=== PATIENT | male | born 1965 | race Caucasian/White ===

== ENCOUNTER → 2016-09-01 | Outpatient (CLI) | payer BC, OTHER ==
[~2016-09-01] MED LIST: AMOX500C3 PO; AMOX875T PO; ASPCH81 PO; ASPI1TAB83 PO; ATOR80TA PO; BMX1 PO; CHOL100010 PO; CIPR-255 PO; CIPR1TAB10 PO; CLOB-65 EXT; CLR10 PO; CRD200 PO; CZR25 PO; DSY50 PO; ERGO500011 PO; FLUT0.15 NAE; FURO20TA PO; GABA1CAP4 PO; GLC500 PO; HYOS1TAB PO; INSUINJ2 SC; KFL500 PO; LACTCHW3 PO; LEVO100T7 PO; LOSA1TAB PO; MAGN1TAB19 PO; MCRK20 PO; METO25TA3 PO; METO50TA7 PO; MOME200A INH; MONT1TAB5 PO; NITR0.4S UT; POTA20TA16 PO; PRLSR20 PO; SPIR25TA89 PO; SULF800T23 PO; TRAM-10 PO; TRAZ-120 PO; WLL100 PO; ZRX5 PO; [UNRECOGNIZED DRUG - CODE] PO
--- NOTE | 2016-09-01 10:43 | DIAGNOSTIC IMAGING REPORT ---
RIGHT LOWER EXTREMITY VENOUS DOPPLER HISTORY: Right leg swelling. COMPARISON STUDY: None. FINDINGS: There is normal compressibility, flow, and augmentation within the right lower extremity deep venous system. IMPRESSION: No DVT within the right lower extremity Electronically signed by: Huey Thorne M.D. 09/01/2016 10:41 AM Dictated Date/Time: 09/01/2016 10:41 AM
== END | disposition home or self-care (01) ==
LOC: C.ULTR 09:56
PROVIDERS: ATTEND Physician Assistant
DX: M79.604 Pain in right leg (principal)

== ENCOUNTER 2016-09-17 06:27 | Day surgery (SDC) | payer BC, OTHER ==
[~2016-09-17] VITALS: Ht 182.9 cm; Wt 177.0 kg
[~2016-09-17 06:27] MED LIST changes: -AMOX875T PO; -ASPI1TAB83 PO; -ATOR80TA PO; -BMX1 PO; -CHOL100010 PO; -CIPR-255 PO; -CIPR1TAB10 PO; -CRD200 PO; -CZR25 PO; -DSY50 PO; -GABA1CAP4 PO; -KFL500 PO; -LACTCHW3 PO; -MAGN1TAB19 PO; -MCRK20 PO; -METO50TA7 PO; +SODIUM CHLORIDE 0.9% 1000ML 1,000 ML IV SCH; -SULF800T23 PO; -TRAZ-120 PO; -WLL100 PO; -ZRX5 PO
[2016-09-17] MEDS ORDERED: CHOL100010 PO (07:29)
[2016-09-17 07:37] VITALS: BP 144/83; PULSE 79; TEMP 36.9; O2SAT 98; Ht 182.9 cm; Wt 177.0 kg
[2016-09-17] MEDS ORDERED: SODIUM BICARB 8.4% INJ 50 MEQ/50 ML SYR IV ONE (07:41)
[2016-09-17] MEDS ORDERED: LIDOCAINE HCL 1% 20 ML VIAL ONE (07:41)
[2016-09-17] MEDS ORDERED: LIDOCAINE/EPINEPHRINE 1% INJ 50 ML VIAL ONE ×2 (07:41→08:03)
[2016-09-17] MEDS ORDERED: FENTANYL CITRATE INJ 50 MCG/1 ML 2 ML VIAL ONE (07:43)
[2016-09-17] MEDS ORDERED: MIDAZOLAM HCL 1 MG/ML 2ML VIAL ONE (07:43)
--- NOTE | 2016-09-17 07:49 | History and Physical ---
History & Physical Date September 17, 2016. Chief Complaint Venous insufficiency History of Present Illness Mr. Lyle is a 50-year-old man with a history of morbid obesity, nonischemic cardiomyopathy, status post ICD, coronary artery disease, type 2 diabetes, on insulin, obstructive sleep apnea, hypertension, asthma, who has been followed by the wound clinic for more than a month in the setting of slow healing lower extremity ulcerations, thought secondary due to venous stasis. The patient states that he has had issues with lower extremity swelling for years. Prior treatments included compression stockings as well as lymphedema management with lymphedema pumps. Despite this, he continues to have significant lower extremity swelling with intermittent skin breakdown. Most recently, he underwent a lower extremity ultrasound which showed a dilated right GSV in the thigh with reflux and normal SSV. There was no evidence of DVT or SVT. The patient as a result consulted today for consideration of GSV ablation. PAST MEDICAL HISTORY: 1. Type 2 diabetes, on insulin. 2. Dyslipidemia. 3. Nonischemic cardiomyopathy, status post ICD. 4. Prior coronary artery disease. 5. Sleep apnea. 6. Hypothyroidism. 7. Hypertension. Past Medical/Surgical History Medical Problems: (1) Acute renal failure syndrome (2) Chest pain (3) Dehydration (4) Diabetes mellitus type 2 (5) Essential hypertension (6) Systolic heart failure (7) Testicular hypofunction Additional History Hepatic Disease: No Endocrine Disorder: Yes Kidney Disease: No Hypertension: Yes Heart Disease: Yes Bleeding Tendencies: No Infectious Diseases: No Allergies Coded Allergies: Benzonatate (Verified Adverse Reaction, Unknown, choking, gagging, 09/17/16 ) Home Medications Scheduled Aspirin (Aspirin Tab-Chewable *), 81 MG PO QAM Cholecalciferol (Vitamin D), 3,000 TAB PO DAILY Clobetasol Propionate 0.05% (Temovate 0.05%), 1 APPLN EXT BID Fluticasone Propionate (Nasal) (Flonase Allergy Relief), 2 SPRAYS DAIN DAILY Furosemide (Lasix), 80 MG PO BID Insulin Regular (Human) (Humulin R U-500 (Concentr), SC UD Levothyroxine Sodium (Levothyroxine Sodium), 1 TAB PO QAM Losartan Potassium (Cozaar), 25 MG PO DAILY Metformin HCL (Glucophage *), 1,000 MG PO BID Metoprolol Succ (Toprol Xl) (Toprol-Xl), 25 MG PO QPM Mometasone Furoate-Formoterol (Dulera 200/5 Mcg), 2 PUFFS INH BID Nitroglycerin (Nitrostat), 0.4 MG UT PRN Nutritional Supplements (Glucerna Meal Replacement), 1 UNIT PO prn Potassium Ext Rel (Klor-Con), 20 MEQ PO QAM Spironolactone (Aldactone), 25 MG PO QAM Scheduled PRN Hyoscyamine Sulfate (Levsin), 0.125 MG PO TID PRN for PRN Loratadine (Claritin), 10 MG PO DAILY PRN for PRN Omeprazole (Prilosec), 20 MG PO DAILY PRN for PRN Tramadol (Ultram), 50 MG PO Q8H PRN for Pain Physical Examination Skin: no rash Eyes: normal inspection ENT: normal ENT inspection Respiratory/Chest: lungs clear Cardiovascular: regular rate, rhythm Abdomen / GI: normal bowel sounds Extremities: + pertinent finding (signs of chronic venous stasis. distal extremities warm, intact cap refill) Neurologic/Psych: alert, oriented x 3 Diagnosis Venous insufficiency ASA Classification: ASA Class II Plan of Treatment Proceed with planned R GSV RF ablation.
--- NOTE | 2016-09-17 07:50 | Procedure Note ---
Pre-Mod Sedation Assessment General Date of Moderate Sedation: September 17, 2016. Review Cardiovascular: regular rate, rhythm Abdomen: non tender, soft Lungs: chest non-tender, lungs clear Airway Class: III Pre-Sedation Airway Assessment Oral Cavity: Dental Abnormalities Able to Visualize Vocal Cords: No Short Thick Neck: Yes Hx of Sleep Apnea: Yes Smoking Status: Never Smoker Mallampati Classification: Class III ASA Classification: Class II Procedure Planning Contraindications-for Mod Sed: None Yes Notes The planned sedation has been discussed with the patient and consent obtained. I have identified the patient, determined the appropriateness of sedation and have assessed the patient immediately prior to the procedure. All medicine(s) and interventions are by my order.
[2016-09-17] MEDS ORDERED: NURSING VERBAL MED ORDER ONE (08:00)
[2016-09-17] MEDS ORDERED: MIDAZOLAM HCL 1 MG/ML 2ML VIAL IV ONE (08:31)
[2016-09-17] MEDS ORDERED: FENTANYL CITRATE INJ 50 MCG/1 ML 2 ML VIAL IV ONE ×2 (08:32→08:50)
[2016-09-17] MEDS ORDERED: LIDOCAINE HCL 1% 20 ML VIAL INFIL ONE (09:00)
[2016-09-17] MEDS ORDERED: ORM MISCELLANEOUS MED XX ONE (09:00)
--- NOTE | 2016-09-17 09:03 | Procedure Note ---
Post-Mod Sedation Assessment General Date of Moderate Sedation September 17, 2016. Vital Signs: Vital Signs Past 12 Hours Date Time Temp Pulse Resp B/P Pulse Ox O2 Delivery O2 Flow Rate FiO2 09/17/16 07:48 Room Air 09/17/16 07:37 36.9 79 20 144/83 98 Room Air Review - Discharge Criteria Vital Signs Stable: Yes Alert/Oriented/Conversant: Yes Returned to Baseline Mental St: Yes Nausea Absent/Minimal: Yes Pain/Discomfort/Absent/Minimal: Yes Normal/Baseline Respirations: Yes Active Bleeding?: No Pt Received D/C Instructions: Yes Prescriptions Given: None Specific Proced. D/C Criteria Distal Pulses Present (Cardiac: N/A Groin site assessed-Card Cath: N/A Voided Prior To Discharge: Yes Discharged Patients Adult Escort/Transportation: Yes
--- NOTE | 2016-09-17 09:04 | [facility] Operative Report ---
Operative Report Operative Date September 17, 2016. Pre-Operative Diagnosis Venous insufficiency Post-Operative Diagnosis Venous insufficiency Procedure(s) Performed Right GSV RF ablation Surgeon Dr. Adams Estimated Blood Loss <10 Findings Dilated Right GSV. No evidence of superficial venous thrombosis/DVT Drains None Anesthesia Moderate Complication(s) None Disposition Recovery Room / PACU Description of Procedure US guided access Right GSV below the knee Catheter inserted, 2.9 cm from SFJ. Tumescent injected. US confirmed not in deep system. 2:40, 8 cycles of RFA right GSV. No complications. Patient tolerated well. US confirmed no DVT post procedure. I attest to the content of the Intraoperative Record and any orders documented therein. Any exceptions are noted below.
[2016-09-17 09:15] VITALS: BP 119/66; PULSE 75; TEMP 36.9; O2SAT 93
[2016-09-17 09:45] VITALS: BP 128/76; PULSE 73; TEMP 36.8; O2SAT 97
[2016-09-17 10:15] VITALS: BP 132/74; PULSE 73; TEMP 36.8; O2SAT 94
[2016-09-23] MEDS ORDERED: CIPR-255 PO (07:40)
[2016-10-13] MEDS ORDERED: AMOX500C3 PO (08:48)
[2016-11-03] MEDS ORDERED: CIPR1TAB10 PO (11:09)
[2016-11-20] MEDS ORDERED: SULF800T23 PO (09:53)
[2017-01-23] MEDS ORDERED: AMOX500C3 PO (11:06)
[2017-01-26] MEDS ORDERED: ERGO500011 PO (12:54)
[2017-02-02] MEDS ORDERED: AMOX875T PO (14:58)
[2017-02-02] MEDS ORDERED: MCRK20 PO (15:06)
[2017-02-02] MEDS ORDERED: WLL100 PO (15:06)
[2017-02-28] MEDS ORDERED: ZRX5 PO (12:46)
[2017-02-28] MEDS ORDERED: LACTCHW3 PO (12:46)
[2017-02-28] MEDS ORDERED: DSY50 PO (12:46)
[2017-02-28] MEDS ORDERED: KFL500 PO (12:46)
[2017-02-28] MEDS ORDERED: METO50TA7 PO (12:46)
[2017-02-28] MEDS ORDERED: ATOR80TA PO (12:48)
[2017-04-02] MEDS ORDERED: KFL500 PO (13:24)
== END 2016-09-17 10:30 | disposition home or self-care (01) ==
LOC: C.ACU 06:27
PROVIDERS: ATTEND Internal Medicine Interventional Cardiology
DX: I87.2 Venous insufficiency (chronic) (peripheral) (principal); I25.10 Atherosclerotic heart disease of native coronary artery without angina pectoris; E11.9 Type 2 diabetes mellitus without complications; E66.01 Morbid (severe) obesity due to excess calories; I10 Essential (primary) hypertension; E03.9 Hypothyroidism, unspecified; J45.909 Unspecified asthma, uncomplicated; G47.33 Obstructive sleep apnea (adult) (pediatric); Z79.4 Long term (current) use of insulin; Z79.899 Other long term (current) drug therapy

== ENCOUNTER → 2017-01-20 | Outpatient (CLI) | payer BC, OTHER ==
[~2017-01-20] MED LIST changes: +AMOX875T PO; +BMX1 PO; +CHOL100010 PO; +CIPR1TAB10 PO; +CRD200 PO; +CZR25 PO; +ERGO1CAP41 PO; -ERGO500011 PO; +MCRK20 PO; -MONT1TAB5 PO; -SODIUM CHLORIDE 0.9% 1000ML 1,000 ML IV SCH; +SULF800T23 PO; +WLL100 PO; +ZRX5 PO
--- NOTE | 2017-01-20 11:15 | DIAGNOSTIC IMAGING REPORT ---
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 This is similar in appearance compared to the prior study. Moderate generalized degenerative change throughout. Considerable soft tissue edematous change lateral to the fifth metatarsal. Small heel spur. Mild ossification Achilles tendon insertion. IMPRESSION: Considerable soft tissue edematous change about the fifth metatarsal. 2. 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 3. No evidence for acute bony pathology. No lytic or blastic process. The above report was generated using voice recognition software. It may contain grammatical, syntax or spelling errors. Electronically signed by: Declan Courtney M.D. 01/20/2017 11:14 AM Dictated Date/Time: 01/20/2017 11:12 AM
--- NOTE | 2017-01-20 11:22 | DIAGNOSTIC IMAGING REPORT ---
R TOE(S) MIN 2 VIEWS HISTORY: 51 years-old Male RIGHT 1ST TOE pain of the right great toe without reported trauma. COMPARISON: None available. TECHNIQUE: 3 views of the right great toe FINDINGS: There is a 6 mm linear bone fragment noted along the volar aspect of the first distal phalanx with lucent lateral margin suggesting acute fracture. Metallic density foci project over the adjacent soft tissues which are favored to be artifactual. Mild soft tissue swelling involves the distal first digit and medial forefoot. Moderate degenerative changes are seen within the metatarsophalangeal and interphalangeal joints of the first digit. IMPRESSION: 1. 6 mm linear bone fragment along the volar aspect of the first distal phalanx suggest acute fracture fragment with adjacent soft tissue swelling. 2. Mild degenerative changes of the first digit. The above report was generated using voice recognition software. It may contain grammatical, syntax or spelling errors. Electronically signed by: Flynn Johnson M.D. 01/20/2017 11:21 AM Dictated Date/Time: 01/20/2017 11:17 AM
== END | disposition home or self-care (01) ==
LOC: C.RAD 10:49
PROVIDERS: ATTEND Emergency Medicine
DX: S91.302A Unspecified open wound, left foot, initial encounter (principal); S91.101A Unspecified open wound of right great toe without damage to nail, initial encounter; X58.XXXA Exposure to other specified factors, initial encounter; R93.7 Abnormal findings on diagnostic imaging of other parts of musculoskeletal system; M79.9 Soft tissue disorder, unspecified

== ENCOUNTER 2017-01-26 11:25 | Inpatient (IN) | payer BC, OTHER ==
[~2017-01-26] VITALS: Ht 182.9 cm; Wt 171.5 kg
[~2017-01-26 11:25] MED LIST changes: -AMOX875T PO; -BMX1 PO; -CIPR1TAB10 PO; -CRD200 PO; -CZR25 PO; -ERGO1CAP41 PO; -FURO20TA PO; -LOSA1TAB PO; -MCRK20 PO; -SULF800T23 PO; -WLL100 PO; -ZRX5 PO
[2017-01-26] MEDS ORDERED: ACETAMINOPHEN 325 MG TAB PO PRN (12:00)
[2017-01-26] MEDS ORDERED: POLYETHYLENE (MIRALAX) 17 GM PACK PO PRN (12:00)
[2017-01-26] MEDS ORDERED: MAGNESIUM HYDROXIDE SUSP 30 ML UDC PO PRN (12:00)
[2017-01-26] MEDS ORDERED: [UNRECOGNIZED DRUG - OTHER] PO SCH (12:00)
[2017-01-26] MEDS: PATIENT'S HEIGHT AND/OR WEIGHT NEEDED SCH ×7 (12:00→13:23)
[2017-01-26] MEDS ORDERED: NUTRITIONAL SUPPLEMENTS PO SCH (12:00)
[2017-01-26] MEDS ORDERED: ONDANSETRON INJ 2 MG/ML 2 ML VIAL IV PRN (12:00)
[2017-01-26] MEDS ORDERED: VANCOMYCIN CONSULT ACTIVE SCH (12:06)
[2017-01-26] MEDS: NovoLOG INSULIN PUMP SCH ×3 (12:30→21:00)
[2017-01-26 12:37] VITALS: BP 142/81; PULSE 72; TEMP 36.6; O2SAT 96; BMI 51.8
[2017-01-26] MEDS ORDERED: GLUCOSE 40% GEL 15 GM TUBE PO PRN (12:45)
[2017-01-26] MEDS ORDERED: INSULIN ASPART 100 UNITS/ML VIAL SC PRN (12:45)
[2017-01-26] MEDS ORDERED: GLUCOSE 10 TABS/TUBE PO PRN (12:45)
[2017-01-26] MEDS ORDERED: GLUCAGON FOR INJ 1 MG VIAL SQ PRN (12:45)
[2017-01-26 12:48] LABS: BASO % 0.5 %; BASO ABS # 0.05 K/uL (0-0.2); COMPLETE YES; EOS % 2.7 %; HEMATOCRIT 38.9 % (42-52); IG% 0.5 %; LYMPH % 11.4 %; LYMPH ABS # 1.25 K/uL (1.2-3.4); MEAN CELL VOLUME 87.4 fL (80-100); MEAN CORPUSCULAR HEMOGLOBIN 28.3 pg (25-34); MEAN CORPUSCULAR HGB CONC 32.4 g/dl (32-36); MEAN PLATELET VOLUME 9.6 fL (7.4-10.4); MONO % 10.7 %; NEUT % 74.2 %; PLATELET COUNT 322 K/uL (130-400); RED BLOOD COUNT 4.45 M/uL (4.7-6.1); WHITE BLOOD COUNT 10.93 K/uL (4.8-10.8)
[2017-01-26] MEDS ORDERED: CRD200 PO (12:54)
[2017-01-26] MEDS ORDERED: ERGO1CAP41 PO (12:54)
[2017-01-26] MEDS ORDERED: ZRX5 PO (12:57)
[2017-01-26] MEDS ORDERED: CZR25 PO (12:57)
[2017-01-26] MEDS ORDERED: BMX1 PO (12:57)
[2017-01-26] MEDS ORDERED: CEFEPIME IV 2000 MG in DEXTROSE 5% 100ML IV ONE (13:00)
[2017-01-26 13:13] LABS: BUN/CREATININE RATIO 18.3 (10-20); CALCIUM 9.5 mg/dl (8.5-10.1); CREATININE 1.5 mg/dl (0.60-1.40); POTASSIUM 3.5 mmol/L (3.5-5.1)
--- NOTE | 2017-01-26 13:45 | Pharmacy Progress Note ---
Pharmacy Antibiotic Consult Date of Service: Jan 26, 2017. Pharmacy Dosing Scope Pharmacy is consulted to initiate vancomycin IV dosing therapy, order appropriate labs and adjust drug dose/frequency. Subjective The patient is a 51 year old male admitted on Jan 26, 2017 at 11:44. Objective Height (Feet): 6 Weight (Kilograms): 171.455 Lab Results (24hrs): Test 01/26/17 12:12 01/26/17 12:54 01/26/17 13:01 White Blood Count 10.93 K/uL (4.8-10.8) Red Blood Count 4.45 M/uL (4.7-6.1) Hemoglobin 12.6 g/dL (14.0-18.0) Hematocrit 38.9 % (42-52) Mean Corpuscular Volume 87.4 fL (80-100) Mean Corpuscular Hemoglobin 28.3 pg (25-34) Mean Corpuscular Hemoglobin Concent 32.4 g/dl (32-36) Platelet Count 322 K/uL (130-400) Mean Platelet Volume 9.6 fL (7.4-10.4) Neutrophils (%) (Auto) 74.2 % Lymphocytes (%) (Auto) 11.4 % Monocytes (%) (Auto) 10.7 % Eosinophils (%) (Auto) 2.7 % Basophils (%) (Auto) 0.5 % Neutrophils # (Auto) 8.11 K/uL (1.4-6.5) Lymphocytes # (Auto) 1.25 K/uL (1.2-3.4) Monocytes # (Auto) 1.17 K/uL (0.11-0.59) Eosinophils # (Auto) 0.30 K/uL (0-0.5) Basophils # (Auto) 0.05 K/uL (0-0.2) RDW Standard Deviation 48.3 fL (36.4-46.3) RDW Coefficient of Variation 15.0 % (11.5-14.5) Immature Granulocyte % (Auto) 0.5 % Immature Granulocyte # (Auto) 0.05 K/uL (0.00-0.02) Sodium Level 137 mmol/L (136-145) Potassium Level 3.5 mmol/L (3.5-5.1) Chloride Level 99 mmol/L (98-107) Carbon Dioxide Level 27 mmol/L (21-32) Anion Gap 11.0 mmol/L (3-11) Blood Urea Nitrogen 27 mg/dl (7-18) Creatinine 1.50 mg/dl (0.60-1.40) Est Creatinine Clear Calc Drug Dose 92.8 ml/min Estimated GFR () 60.7 Estimated GFR (Non- 52.4 BUN/Creatinine Ratio 18.3 (10-20) Random Glucose 99 mg/dl (70-99) Calcium Level 9.5 mg/dl (8.5-10.1) Prothrombin Time 11.0 SECONDS (9.0-12.0) Prothromb Time International Ratio 1.0 (0.9-1.1) Activated Partial Thromboplast Time 27.2 SECONDS (21.0-31.0) Partial Thromboplastin Ratio 1.0 Bedside Glucose 108 mg/dl (70-99) Micro Results: Date/Time Source Procedure Growth Status 01/26/17 12:26 Blood Blood Culture Pending Received 01/26/17 12:12 Blood Blood Culture Pending Received Recent Pertinent Medications Recent amoxicillin/ciprofloxacin/bactrim use Assessment & Plan Assessment: 51 year old male with direct admission with diabetic foot infection SCr 1.5, CrCl 92, Vdf 0.6 BMI: 51.3 Plan: Loading dose 2500 mg x 1 (15 mg/kg) Maintenance dose: 2000 mg (12mg/kg) q12H T1/2 est ~9 hrs Using less than traditional dosing and/or dosing interval due to risk of accumulation with BMI >35 Starting maintenance dose within 9 hours of loading dose given lower than typical load Goal trough level estimate: 15-20 mcg Trough level ordered for 01/28 @ 1030 Pharmacy will continue to follow and will adjust dose/frequency as necessary. Thank you
[2017-01-26] MEDS ORDERED: VANCOMYCIN INJ 2,500 MG in SODIUM CHLORIDE 0.9% 500ML 500 ML IV ONE (14:00)
[2017-01-26] MEDS ORDERED: CEFEPIME IV 2,000 MG in DEXTROSE 5% 100ML 100 ML IV SCH (14:00)
[2017-01-26] MEDS: ENOXAPARIN 40 MG/0.4 ML SYR SQ SCH (14:13)
[2017-01-26] MEDS ORDERED: NITROGLYCERIN 0.4 MG SL PER TAB CHARGE UT SCH (14:15)
--- NOTE | 2017-01-26 14:51 | HISTORY & PHYSICAL EXAMINATION ---
DATE OF ADMISSION: 01/26/2017 ADMITTING DIAGNOSIS: Diabetic foot infection. HISTORY OF PRESENT ILLNESS: Mr. Lyle is a 51-year-old insulin-requiring diabetic who uses an insulin pump. The patient has been followed by diabetic wound clinic for some time. Last week, the patient developed increasing redness around his right great toe. He previously was being treated for a left plantar aspect stage II decubitus ulcer by wound care. The wound care physician prescribed amoxicillin and over the weekend, Mr. Lyle noted that he had had progression of infectious symptoms including increasing redness, swelling and some discharge from his toe. Previously, the patient had a culture of this toe which on the 20 of January grew E. coli and group B beta strep. This was sensitive to ampicillin and likewise was the reason amoxicillin was considered for treatment. The patient presented to the wound care today and his toe infection progressed and he was recommended for direct admission by Dr. Delacruz to our facility. I saw the patient in his room. He was in mild distress with regards to swelling of his leg and some redness, but otherwise had no complaints or problems other than recent hypoglycemia, which is unusual for him. PAST MEDICAL HISTORY: The patient had a recent nerve radiofrequency ablation. The patient has had chronic kidney disease stage III; type 2 diabetes, now requiring insulin; dyslipidemia, nonischemic cardiomyopathy status post ICD placement, sleep apnea, hypothyroidism, and hypertension. MEDICATIONS: On presentation include amiodarone 200 mg a day, Bumex 1 mg b.i.d., vitamin D 50,000 units, loratadine as needed, losartan 25 mg a day, metolazone 5 mg every other day, p.r.n. nitroglycerin, insulin pump, aspirin 81 a day, Flonase 2 sprays b.i.d., Synthroid 100 mcg a day, metformin 1000 b.i.d., metoprolol 25 q.p.m., Dulera 200/5 mcg b.i.d. 2 puffs, nutritional supplements, omeprazole 20 a day as needed, potassium 20 a day, spironolactone 25 a day, and tramadol 50 q. 8 hours p.r.n. REVIEW OF SYSTEMS: Ten systems were reviewed and are negative unless listed in this documented including increased redness and swelling to his right leg, drainage to his right great toe of a cloudy serosanguineous liquid. FAMILY HISTORY: Positive for diabetes and also pancreatic cancer in his sister, which is [place]. SOCIAL HISTORY: He has never been a smoker, does not use alcohol except very occasionally. PHYSICAL EXAMINATION: GENERAL: He is a pleasant gentleman. He is morbidly obese. BMI of 51. VITAL SIGNS: His temperature is 36, pulse is 72, respiration rate 18, BP 142/81, O2 sat 96% on room air. HEENT: PERRL, EOMI, normocephalic, atraumatic. NECK: Trachea midline. No lymphadenopathy. HEART: Distant, regular. Systolic murmur at the right upper sternal border. LUNGS: Clear without wheezes or crackles. Good air movement. ABDOMEN: Protuberant, normoactive bowel sounds, soft, nontender, nondistended. EXTREMITIES: With changes of chronic venous stasis, his right lower extremity is more swollen than his left. He has got erythema to the distal one-third. His right great toe has some poor capillary refill to the distal portion with a 3-4 mm full thickness in the very distal aspect of the great toe expressing some serosanguineous clotty liquid from that. His left foot has an approximately 10 mm stage II ulceration on the mid plantar aspect of his arch. Both legs have edema. NEUROLOGICALLY: He has a stocking glove neuropathy worse with the legs than the hands. He is awake, alert and appropriate. Cranial nerves II-XII are intact. SPINE: Nontender. There is no CV angle tenderness. LABORATORY DATA: Currently with a white count of 10, H&H 12 and 38, platelet count 322. BUN and creatinine are 27 and 1.5, glucose 108, hemoglobin A1c in the morning pending, studies of an MRI scan of his toe to look for osteomyelitis. ASSESSMENT: A 51-year-old male with diabetic foot infection with concern for osteomyelitis. PLAN: The patient will be admitted to our facility and will be placed on vancomycin and cefepime. We will not do additional cultures at this time, but get an infectious disease consultation and MRI scan of his foot to look for osteomyelitis. Regarding his diabetes, we will maintain his insulin pump and diabetic diet and metformin. Regarding his recent ablation and cardiac disease, he will be maintained on aspirin, amiodarone, Bumex, metolazone, and spironolactone; this is for his chronic systolic heart failure also. Regarding his deep vein thrombosis prevention, will employ Lovenox therapy. He states his leg swelling is about usual for him. If it does worse or change in any way, we may consider doing a venous Doppler. Wound care consultation will be undertaken. Will not involve Dr. Delacruz as the physician timber management specialist unless required. For his hypothyroidism, he appears clinically euthyroid, will continue Synthroid at 100 mcg a day. Protonix will be maintained for gastroesophageal reflux disease prevention and for his allergic rhinitis, so will continue to use his fluticasone. MTDD
--- NOTE | 2017-01-26 15:13 | Medical Consult ---
Consultation Date of Consultation: Jan 26, 2017. Attending Physician: Imer Lee M.D. Reason for Consultation: Diabetic foot infection History of Present Illness 51-year-old male with longstanding diabetes mellitus, maintained with insulin pump, who has been followed recently [facility] for both a left plantar ulceration as well as a right great toe ulceration. He presented today to the wound Care Center with several days of progressively worsening redness and swelling surrounding his right great toe ulcer, associated with fever, chills, and hyperglycemia. He does not know whether he had fever but had chills and sweats. Previous cultures have grown E coli, strep, and previously has grown Pseudomonas. He has been started on vancomycin and cefepime. Past Medical/Surgical History PAST MEDICAL HISTORY: Positive for glaucoma, diabetic neuropathy, insulin-dependent diabetes, OR, hyperlipidemia, hypertension, asthma, hypothyroidism and GERD. PAST SURGICAL HISTORY: Positive for a cardiac stent and a implanted defibrillator. The patient also has sleep apnea and uses BiPAP. Family History Noncontributory Social History Smoking Status: Never Smoker Drug Use: none Marital Status: Occupation Status: disabled Allergies Coded Allergies: Benzonatate (Verified Adverse Reaction, Unknown, choking, gagging, 09/17/16 ) Current Inpatient Medications Current Inpatient Medications Medications (Trade) Dose Ordered Sig/Pankaj Route Start Time Stop Time Status Last Admin Dose Admin Enoxaparin Sodium (Lovenox Inj) 40 mg Q24H SQ 01/26/17 14:00 02/25/17 13:59 01/26/17 14:13 40 MG Acetaminophen (Tylenol Tab) 650 mg Q4H PRN PO 01/26/17 12:00 02/25/17 11:59 Magnesium Hydroxide (Milk Of Magnesia Susp) 30 ml Q6H PRN PO 01/26/17 12:00 02/25/17 11:59 Polyethylene (Miralax Powder Packet) 17 gm DAILY PRN PO 01/26/17 12:00 02/25/17 11:59 Ondansetron HCl (Zofran Inj) 4 mg Q6H PRN IV 01/26/17 12:00 02/25/17 11:59 Aspirin (Ecotrin Tab) 81 mg QAM PO 01/27/17 08:00 02/26/17 07:59 Fluticasone Propionate (Flonase Nasal [place]) 2 sprays DAILY DAIN 01/27/17 08:00 02/26/17 07:59 Levothyroxine Sodium (Synthroid Tab) 100 mcg DAILYBB PO 01/27/17 06:30 02/26/17 06:29 Metformin HCl (Glucophage Tab) 1,000 mg BIDM PO 01/26/17 17:00 02/25/17 16:59 Metoprolol Succinate (Toprol Xl Tab) 25 mg QPM PO 01/26/17 21:00 02/25/17 20:59 Potassium Chloride (Klor-Con Tab) 20 meq QAM PO 01/27/17 08:00 02/26/17 07:59 Spironolactone (Aldactone Tab) 25 mg QAM PO 01/27/17 08:00 02/26/17 07:59 Tramadol HCl (Ultram Tab) 50 mg Q8H PRN PO 01/26/17 12:00 02/25/17 11:59 Miscellaneous Information (Order Awaiting Action) 1 ea QS N/A 01/26/17 16:00 02/25/17 15:59 Pantoprazole Sodium (Protonix Tab) 40 mg QAM PO 01/27/17 08:00 02/26/17 07:59 Vancomycin HCl (Consult) 1 ea UD N/A 01/26/17 12:06 02/25/17 12:05 Insulin Aspart (novoLOG INSULIN PUMP) 1 ea ACHS N/A 01/26/17 12:30 02/25/17 12:29 Insulin Aspart (novoLOG ASPART) SLIDING SCALE PRN PRN SC 01/26/17 12:45 02/25/17 12:44 Glucose (Glucose 40% Gel) UD PRN PO 01/26/17 12:45 02/25/17 12:44 Glucose (Glucose Chew Tab) 1 tabs UD PRN PO 01/26/17 12:45 02/25/17 12:44 Glucagon (Glucagon Inj) 1 mg UD PRN SQ 01/26/17 12:45 02/25/17 12:44 Dextrose (Dextrose 50% 50ML Syringe) 50 ml UD PRN IV 01/26/17 12:45 02/25/17 12:44 Vancomycin HCl 2500 mg/Sodium Chloride 550 ml @ 200 mls/hr 01/26/17@1400 ONCE IV 01/26/17 14:00 01/26/17 16:44 01/26/17 13:51 200 MLS/HR Cefepime HCl 2000 mg/Dextrose 112.5 ml @ 200 mls/hr Q8 IV 01/26/17 22:00 02/05/17 21:59 Vancomycin HCl 2000 mg/Sodium Chloride 540 ml @ 200 mls/hr Q12@1100,2300 IV 01/26/17 23:00 02/05/17 22:59 Amiodarone HCl (Cordarone Tab) 200 mg DAILY PO 01/27/17 08:00 02/26/17 07:59 Bumetanide (Bumex Tab) 1 mg BID PO 01/26/17 20:00 02/25/17 19:59 Losartan Potassium (coZAAR TAB) 25 mg DAILY PO 01/27/17 08:00 02/26/17 07:59 Metolazone (Zaroxolyn Tab) 5 mg Q48H PO 01/26/17 14:15 02/25/17 14:14 Nitroglycerin (Nitrostat Tab) 0.4 mg PRN UT 01/26/17 14:15 02/25/17 14:14 Review of Systems Constitutional: + fever, + chills, + sweats Eyes: No problem reported ENT: No problem reported Respiratory: No problem reported Cardiovascular: No problem reported Abdomen: No problem reported Musculoskeletal: + swelling Genitourinary - Male: No problem reported Neurologic: No problem reported Psychiatric: No problem reported Endocrine: No problem reported Hematologic / Lymphatic: No problem reported Integumentary: + new/changing skin lesions Allergic / Immunologic: No problem reported Physical Exam Date Time Temp Pulse Resp B/P (MAP) Pulse Ox O2 Delivery O2 Flow Rate FiO2 01/26/17 12:37 36.6 72 18 142/81 (101) 96 Room Air 01/26/17 12:37 36.6 72 18 142/81 96 Room Air General Appearance: WD/WN, no apparent distress, + obese Head: normocephalic, atraumatic Eyes: normal inspection, EOMI, sclerae normal ENT: normal ENT inspection, hearing grossly normal, pharynx normal Neck: supple, no adenopathy, thyroid normal, trachea midline Respiratory/Chest: chest non-tender, lungs clear, normal breath sounds, no respiratory distress Cardiovascular: regular rate, rhythm, no gallop, no murmur Abdomen/GI: normal bowel sounds, non tender, soft, no organomegaly Back: normal inspection, no CVA tenderness Extremities/Musculoskelatal: no calf tenderness, + inflammation, + slow capillary refill, + swelling Neurologic/Psych: alert, oriented x 3, + sensory deficit Skin: normal color, no rash, + pertinent finding (Right great toe ulceration with surrounding erythema, serous drainage, clean left plantar ulcer, bilateral stasis dermatitis) Laboratory Results RUN DATE: 01/23/17 [facility] LAB PAGE 1 RUN TIME: 850 Specimen Inquiry PATIENT: STANISLAW ALCANTAR LOC: C.WOUND U # : [id number] AGE/SX: 51/M ROOM: REG : 01/20/[address]: Declan Delacruz, : 1965 BED: DIS : STATUS: REG RCR TLOC: SPEC #: [id number] JUSTIN: 01/20/17 STATUS: COMP REQ #: [id number] RECD: 01/20/17 [facility] DR: Carolyn Murillo, AR[place] ElizabethC SOURCE: ULCER ENTR: 01/20/[address] [facility] [address]: Sherry Maya D.O. [facility]: TOE R1 Declan Delacruz, DO ORDERED: KIM WHITE/JORDYN COMMENTS: Has Specimen Been Obtained/Collected? Y Procedure Result Verified Site GRAM STAIN Final 01/21/17-741 RESULT MANY GRAM POSITIVE COCCI FEW GRAM NEGATIVE BACILLI RARE WBCs SEEN SURFACE WOUND CULTURE Final 01/23/17 Organism 1 ESCHERICHIA COLI QUANITY MANY SENS SENSITIVITY TO FOLLOW +MIXWOUND PLUS LOW COUNTS OF PROBABLE SKIN TOÑO Organism 2 GROUP B BETA STREP QUANITY MANY SENS SENSITIVITY TO FOLLOW E COLI GBBS M.I.C. RX M.I.C. RX --------- ------ --------- ------ TRIMET/SULFA >238 R AMPICILLIN <=8 S 0.12 S AMPICILLIN/SUL <=8/4 S CEFAZOLIN <=8 S CEFOTAXIME <=2 S <=0.25 S CEFTRIAXONE <=1 S <=0.25 S CEFEPIME <=4 S <=0.25 S CEFUROXIME <=4 S CHLORAMPHENICOL 2 S IMIPENEM <=1 S VANCOMYCIN 0.5 S PENICILLIN 0.06 S GENTAMICIN <=4 S TOBRAMYCIN <=4 S ERYTHROMYCIN <=0.06 S AMIKACIN <=16 S CIPROFLOXACIN >2 R LEVOFLOXACIN >4 R CLINDAMYCIN <=0.06 S ERTAPENEM <=1 S PIP/TAZO <=16 S AZITHROMYCIN <=0.25 S CONTINUED ON NEXT PAGE RUN DATE: 01/23/17 [facility] LAB PAGE 2 RUN TIME: 0851 Specimen Inquiry SPEC: [id number] PATIENT: ORTIZSTANISLAW Hector BOURNE [id number] ( Continued) Procedure Result Verified Site SURFACE WOUND CULTURE Final (continued) 01/23/17-0850 1. ESCHERICHIA COLI Target Route Dose RX AB Cost M.I.C. IQ ------ ----- ------ -- ------ -------- - ------ TRIMET/SULFA R >/38 AMPICILLIN S <=8 AMPICILLIN/SUL S <=8/4 CEFAZOLIN S <=8 CEFOTAXIME S <=2 CEFTRIAXONE S <=1 CEFEPIME S <=4 CEFUROXIME S <=4 IMIPENEM S <=1 GENTAMICIN S <=4 TOBRAMYCIN S <=4 AMIKACIN S <=16 CIPROFLOXACIN R >2 LEVOFLOXACIN R >4 ERTAPENEM S <=1 PIP/TAZO S <=16 2. GROUP B BETA STREP Target Route Dose RX AB Cost M.I.C. IQ ------ ----- ------ -- ------ -------- - ------ AMPICILLIN S 0.12 CEFOTAXIME S <=0.25 CEFTRIAXONE S <=0.25 CEFEPIME S <=0.25 CHLORAMPHENICOL S 2 VANCOMYCIN S 0.5 PENICILLIN S 0.06 ERYTHROMYCIN S <=0.06 CLINDAMYCIN S <=0.06 AZITHROMYCIN S <=0.25 S = SENSITIVE I = INTERMEDIATE R = RESISTANT END OF REPORT Last 24 Hours Test 01/26/17 12:12 01/26/17 12:54 01/26/17 13:01 White Blood Count 10.93 K/uL Red Blood Count 4.45 M/uL Hemoglobin 12.6 g/dL Hematocrit 38.9 % Mean Corpuscular Volume 87.4 fL Mean Corpuscular Hemoglobin 28.3 pg Mean Corpuscular Hemoglobin Concent 32.4 g/dl Platelet Count 322 K/uL Mean Platelet Volume 9.6 fL Neutrophils (%) (Auto) 74.2 % Lymphocytes (%) (Auto) 11.4 % Monocytes (%) (Auto) 10.7 % Eosinophils (%) (Auto) 2.7 % Basophils (%) (Auto) 0.5 % Neutrophils # (Auto) 8.11 K/uL Lymphocytes # (Auto) 1.25 K/uL Monocytes # (Auto) 1.17 K/uL Eosinophils # (Auto) 0.30 K/uL Basophils # (Auto) 0.05 K/uL RDW Standard Deviation 48.3 fL RDW Coefficient of Variation 15.0 % Immature Granulocyte % (Auto) 0.5 % Immature Granulocyte # (Auto) 0.05 K/uL Sodium Level 137 mmol/L Potassium Level 3.5 mmol/L Chloride Level 99 mmol/L Carbon Dioxide Level 27 mmol/L Anion Gap 11.0 mmol/L Blood Urea Nitrogen 27 mg/dl Creatinine 1.50 mg/dl Est Creatinine Clear Calc Drug Dose 92.8 ml/min Estimated GFR () 60.7 Estimated GFR (Non- 52.4 BUN/Creatinine Ratio 18.3 Random Glucose 99 mg/dl Calcium Level 9.5 mg/dl Prothrombin Time 11.0 SECONDS Prothromb Time International Ratio 1.0 Activated Partial Thromboplast Time 27.2 SECONDS Partial Thromboplastin Ratio 1.0 Bedside Glucose 108 mg/dl Assessment & Plan 51-year-old male with diabetes and neuropathy now presents with infected right great toe diabetic ulcer with cellulitis involving the foot. Given recent isolation of E coli and strep and previous isolation of Pseudomonas, combination of vancomycin and cefepime appropriate pending further culture results. Would consider MRI of the foot to better evaluate for possibility of underlying osteomyelitis. Will follow.
[2017-01-26] MEDS ORDERED: INSULIN ASPART 100 UNITS/ML 3 ML PEN SC SCH (16:30)
[2017-01-26] MEDS: METFORMIN HCL 500 MG TAB PO SCH (16:52)
[2017-01-26] MEDS: METOLAZONE 5 MG TAB PO SCH (16:52)
[2017-01-26] MEDS: CEFEPIME IV 2,000 MG in DEXTROSE 5% 100ML 100 ML IV SCH (21:17)
[2017-01-26] MEDS: METOPROLOL SUCC 25MG EXT REL TAB PO SCH (21:17)
[2017-01-26] MEDS: BUMETANIDE 1 MG TAB PO SCH (21:18)
[2017-01-26] MEDS: VANCOMYCIN INJ 2,000 MG in SODIUM CHLORIDE 0.9% 500ML 500 ML IV SCH (22:28)
--- NOTE | 2017-01-26 23:55 | Progress Note ---
Progress Note Date of Service Jan 26, 2017. Progress Note Notified that patient has [employer]onic Taj 2 Defibrillator This is incompatible with MRI Order has been cancelled; further imaging per day team
[2017-01-27] MEDS: TRAMADOL HCL 50 MG TAB PO PRN ×2 (00:19→11:53)
--- NOTE | 2017-01-27 00:59 | Progress Note ---
Progress Note Date of Service Jan 27, 2017. Progress Note patient's insulin pump dislodged to non-sterile field Will need to have needle brought from home tomorrow In the meantime, SSI has been added to patient's regimen
[2017-01-27 01:01] VITALS: BP 127/56; PULSE 71; TEMP 36.7; O2SAT 93
[2017-01-27] MEDS ORDERED: HYDROCODONE/ACETAMOPHEN 5/325MG TAB PO STA (06:00)
[2017-01-27] MEDS: NovoLOG INSULIN PUMP SCH ×4 (06:02→21:08)
[2017-01-27 06:18] LABS: HEMATOCRIT 39.1 % (42-52); MEAN CELL VOLUME 86.5 fL (80-100); MEAN CORPUSCULAR HEMOGLOBIN 29.2 pg (25-34); MEAN CORPUSCULAR HGB CONC 33.8 g/dl (32-36); MEAN PLATELET VOLUME 9.6 fL (7.4-10.4); PLATELET COUNT 349 K/uL (130-400); RED BLOOD COUNT 4.52 M/uL (4.7-6.1)
[2017-01-27] MEDS: LEVOTHYROXINE 100 MCG TAB PO SCH (06:19)
[2017-01-27] MEDS: CEFEPIME IV 2,000 MG in DEXTROSE 5% 100ML 100 ML IV SCH ×3 (06:20→21:59)
[2017-01-27 06:46] LABS: BUN/CREATININE RATIO 20.1 (10-20); CALCIUM 9.1 mg/dl (8.5-10.1); CREATININE 1.4 mg/dl (0.60-1.40); POTASSIUM 3.6 mmol/L (3.5-5.1)
[2017-01-27 07:47] VITALS: BP 108/64; PULSE 72; TEMP 36.6; O2SAT 98
[2017-01-27] MEDS: PANTOprazole SOD 40 MG TAB PO SCH (07:59)
[2017-01-27] MEDS: LOSARTAN POTASSIUM 25 MG TAB PO SCH (07:59)
[2017-01-27] MEDS: POTASSIUM CHLORIDE 20 MEQ TABCR PO SCH (07:59)
[2017-01-27] MEDS: SPIRONOLACTONE 25 MG TAB PO SCH (07:59)
[2017-01-27 08:00] VITALS: O2SAT 98
[2017-01-27] MEDS: BUMETANIDE 1 MG TAB PO SCH ×2 (08:00→19:29)
[2017-01-27] MEDS: AMIODARONE 200 MG TAB PO SCH (08:00)
[2017-01-27] MEDS: ASPIRIN 81 MG ECTAB PO SCH (08:00)
[2017-01-27] MEDS: METFORMIN HCL 500 MG TAB PO SCH (08:00)
[2017-01-27] MEDS: FLUTICASONE PROPIONATE NA SPR 16 GM BTL NAE SCH (08:44)
[2017-01-27] MEDS: INSULIN ASPART 100 UNITS/ML 3 ML PEN SC SCH ×4 (08:47→21:00)
--- NOTE | 2017-01-27 09:24 | Hospitalist Progress Note ---
Hospitalist Progress Note Date of Service Jan 27, 2017. (Susan Whitaker PA-C) Subjective Pt evaluation today including: conversation w/ patient, physical exam, chart review, lab review, review of studies Pain: Minimal R toe pain PO Intake: Fair Voiding: no voiding problems The patient was seen and examined this morning. Pt reports feeling about the same as yesterday. He reports some toe pain, and that his right lower leg is also sore. He denies fever chills or sweats. Pt is unable to get an MRI secondary to defibrillator placement. Defibrillator was placed in 2012 secondary to IN. Pt was recently hospitalized 25 weeks ago in [place] secondary to an episode of lightheadedness, dizziness, and what sounds to be afib with RVR as he describes a fast heart rate. At that time he was visiting his sister for about a 1 month timeframe as she is unfortunately diagnosed with pancreatic cancer. His defibrillator went off over 10 times overnight. He was hospitalized for several days and then placed on amiodarone. His magnesium and potassium were found to be very low, so his diuretics were adjusted to where he is no longer on lasix, and instead is on Bumex and newly placed on metalazone. Pt has been on spironolactone for years. Pt notes his appetite has seemed decreased since that hospital stay. He recently traveled back. He is unable to tell what his dry weight is, but reports being 397lbs recently. He has lost about 20 lbs within the past 2.5 weeks secondary to diminished appetite and diuresis. Constitutional: No fever, No chills, No sweats Eyes: No eye pain, No diplopia ENT: No hearing loss, No nasal symptoms Respiratory: No cough, No sputum, No shortness of breath, No dyspnea on exertion, No dyspnea at rest Cardiovascular: No chest pain, No orthopnea, No edema, No palpitations Abdomen: + constipation (last BM was 2 days ago.), No pain, No nausea, No vomiting, No diarrhea Musculoskeletal: + swelling (BLE ), No joint pain, No muscle pain Male : No dysuria Psychiatric: + depression symptoms (lack of appetite, weight loss, fatigue, 1 sister currently diagnosed with pancreatic cancer, his other sister recently from pancreatic cancer) Endo: + fatigue (Susan Whitaker PA-C) Objective Vital Signs Date Time Temp Pulse Resp B/P (MAP) Pulse Ox O2 Delivery O2 Flow Rate FiO2 01/27/17 07:47 36.6 72 20 108/64 (79) 98 Room Air 01/27/17 02:20 Room Air 01/27/17 01:01 36.7 71 19 127/56 (79) 93 Room Air 01/26/17 16:30 Room Air 01/26/17 12:37 36.6 72 18 142/81 (101) 96 Room Air 01/26/17 12:37 36.6 72 18 142/81 96 Room Air (Susan Whitaker PA-C) Physical Exam General Appearance: WD/WN, + mild distress, + obese (morbid) Eyes: PERRL, EOMI ENT: hearing grossly normal, pharynx normal Neck: supple, no JVD Respiratory/Chest: lungs clear, no respiratory distress, no accessory muscle use, + pertinent finding (+scar over upper L chest wall s/p defibrillator placement) Cardiovascular: regular rate, rhythm Abdomen: normal bowel sounds, non tender, soft Extremities: + pedal edema, + pertinent finding (+ chronic venous stasis changes. + fluid blister formation on RLE, + R great toe with necrotic plantar surface lesion without drainage, + erythema and edema of great toe. + erythema extending up the ankle to distal 1/3 of the RLE. LLE is edematous but no erythema. ) Neurologic/Psychiatric: no motor/sensory deficits, alert, oriented x 3 Skin: normal color, warm/dry (Susan Whitaker PA-C) Laboratory Results Last 24 Hours Test 01/26/17 12:12 01/26/17 12:54 01/26/17 13:01 01/26/17 16:21 White Blood Count 10.93 K/uL Red Blood Count 4.45 M/uL Hemoglobin 12.6 g/dL Hematocrit 38.9 % Mean Corpuscular Volume 87.4 fL Mean Corpuscular Hemoglobin 28.3 pg Mean Corpuscular Hemoglobin Concent 32.4 g/dl Platelet Count 322 K/uL Mean Platelet Volume 9.6 fL Neutrophils (%) (Auto) 74.2 % Lymphocytes (%) (Auto) 11.4 % Monocytes (%) (Auto) 10.7 % Eosinophils (%) (Auto) 2.7 % Basophils (%) (Auto) 0.5 % Neutrophils # (Auto) 8.11 K/uL Lymphocytes # (Auto) 1.25 K/uL Monocytes # (Auto) 1.17 K/uL Eosinophils # (Auto) 0.30 K/uL Basophils # (Auto) 0.05 K/uL RDW Standard Deviation 48.3 fL RDW Coefficient of Variation 15.0 % Immature Granulocyte % (Auto) 0.5 % Immature Granulocyte # (Auto) 0.05 K/uL Sodium Level 137 mmol/L Potassium Level 3.5 mmol/L Chloride Level 99 mmol/L Carbon Dioxide Level 27 mmol/L Anion Gap 11.0 mmol/L Blood Urea Nitrogen 27 mg/dl Creatinine 1.50 mg/dl Est Creatinine Clear Calc Drug Dose 92.8 ml/min Estimated GFR () 60.7 Estimated GFR (Non- 52.4 BUN/Creatinine Ratio 18.3 Random Glucose 99 mg/dl Calcium Level 9.5 mg/dl Prothrombin Time 11.0 SECONDS Prothromb Time International Ratio 1.0 Activated Partial Thromboplast Time 27.2 SECONDS Partial Thromboplastin Ratio 1.0 Bedside Glucose 108 mg/dl 110 mg/dl Test 01/26/17 20:11 01/27/17 01:42 01/27/17 05:49 01/27/17 05:53 Bedside Glucose 122 mg/dl 78 mg/dl 97 mg/dl White Blood Count 10.70 K/uL Red Blood Count 4.52 M/uL Hemoglobin 13.2 g/dL Hematocrit 39.1 % Mean Corpuscular Volume 86.5 fL Mean Corpuscular Hemoglobin 29.2 pg Mean Corpuscular Hemoglobin Concent 33.8 g/dl RDW Standard Deviation 46.8 fL RDW Coefficient of Variation 14.8 % Platelet Count 349 K/uL Mean Platelet Volume 9.6 fL Sodium Level 137 mmol/L Potassium Level 3.6 mmol/L Chloride Level 99 mmol/L Carbon Dioxide Level 30 mmol/L Anion Gap 8.0 mmol/L Blood Urea Nitrogen 28 mg/dl Creatinine 1.40 mg/dl Est Creatinine Clear Calc Drug Dose 99.4 ml/min Estimated GFR () 66.0 Estimated GFR (Non- 57.0 BUN/Creatinine Ratio 20.1 Random Glucose 102 mg/dl Estimated Average Glucose 214 mg/dl Hemoglobin A1c 9.1 % Calcium Level 9.1 mg/dl Test 01/27/17 07:27 Bedside Glucose 123 mg/dl (Susan Whitaker, TREVOR) Assessment and Plan 51 yo M with PMHx of with diabetes and neuropathy now presents with infected right great toe diabetic ulcer with cellulitis involving the foot. R great toe diabetic ulceration with Cellulitis and Osteomyelitis - Wound culture of food grew e.coli and group B beta strep 01/20 , and hx of pseudomonas in past. - Follows with [facility] for wound care as an outpatient. - Continue on vanc and cefepime day #2. Will obtain wound culture and then determine computer support technician IV abx. ID on board - appreciate recs. - Obtaining CT with contrast as MRI not obtainable secondary to defibrillator - shows limited osteo in the 1st distal phalanx. No ivolvement of the interphalangeal joint. no abscess. - Bilat lower extremity U/S with recent travel and hospitalization to r/o DVT. - Negative - Consult ortho for recs if need for surgical intervention. DM II - Insulin pump dislodged last night, planning to bring insulin needle later today - ISS with accuchecks started, will tighten ISS with A1C results. - Metformin 1000 mg BID - hold tonights dose with contrast from CT foot - Hgb A1C = 9.1, pt reports was checked 1 week ago and was around [address] Zafar. Chronic systolic CHF Recent ablation and cardiac disease - Pt with recent addition of amiodarone to his regimen. - Continue aspirin 81 mg daily, amiodarone 200 mg daily, Bumex 1 mg PO BID, metolazone 5 mg every other day, and spironolactone 25 mg daily - Potassium replacement for hx of hypokalemia with aggressive diuresis - Last ECHO completed in our system was from 2010 with moderate to mild reduction of LVEF, and likely patent foramen ovale. Consider repeat ECHO. Will request records from recent stay at [place]. Hypothyroidism - Continue Synthroid 100 mcg daily Vit D Deficiency - Continue Vit D 50,000 U once weekly. GERD - Continue omeprazole 20 mg daily prn Allergic Rhinitis - Continue fluticasone, Dulera 200/5 mcg 2 puffs BID Depressive symptoms - Pt struggling with recent of one sister from pancreatic cancer and another sister who is currently diagnosed with pancreatic cancer. He recently spent 1 month visiting her. He is not on any antidepressants and does not currently see a counselor. He denies need for services at this time. I have encouraged him to talk with other family and friends, and continue good emotional support. - Will start the patient on wellbutrin 50 mg BID for mood and hopefully stimulate some energy. Will increase to 100 mg BID in 3-5 days if shows improvement with this. Low side effect profile for sexual dysfunction. Another reasonable choice for the patient would be cymbalta with chronic pain and diabetic neuropathy, or zoloft. DVT ppx: lovenox subq CODE STATUS: FULL CODE Disposition: From home, discharge when medically stable, pending wound culture/ CT scan results, Abx regimen per ID. (Susan Whitaker, TREVOR) Attending Attestation: Pt seen/examined, chart reviewed, care plan d/w ARCADIO Whitaker. I agree w/ the simms components of her documentation. Pt with c/o edema but no pain. We reviewed his two hospital stays while traveling in [place] (to visit his sister). 1 admit was for ICD firing x 10 times, another admit was for CHF. bringing supplies for his insulin pump tonight. VSS no fever gen - obese neck - no JVD heart - RRR lungs - CTA b/l abd - soft ext - 2-3+ edema on right, 1-2+ on left, pulses (DPs) 2+ b/l skin - severe stasis changes b/l shins with blistering on right mcknight right great toe very swollen, erythematous, and tip of toe with necrotic tissue/ drainage/ulceration x 2 A/P: 1. right great toe infection, polymicrobial, complicated by distal phalanx osteomyelitis Cont IV abx, appreciate ID consult Ortho consult - ?surgical debridement/partial amp vs prolonged course of IV abx vs combination of two? 2. edema - likely venous insuff + his current infection; CHF appears compensated. continue diuretics can wear compression on left leg; avoid right leg due to current infection. dopplers neg for DVT 3. chronic systolic CHF - compensated 4. depression - agree w/ antidepressant 5. T2DM - until pump supplies are available lantus 15 units SC x 1 now; novolog SSI check bmp, mag in am Charanjit GUO MD (Bryce Guo MD)
--- NOTE | 2017-01-27 09:52 | Infectious Disease Progress Nt ---
Progress Note Date of Service Jan 27, 2017. Subjective Pt evaluation today including: conversation w/ patient, physical exam, chart review, lab review, review of studies, conversation w/ solutions consultant, review of inpatient medication list Patient states that he has had somewhat more drainage from his right great toe. Swelling and erythema of foot slightly less, leg still painful. Tolerating antibiotics without apparent difficulty. Unable to obtain MRI because of defibrillator. All Other Systems: Reviewed and Negative Medications Current Inpatient Medications Medications (Trade) Dose Ordered Sig/Pankaj Route Start Time Stop Time Status Last Admin Dose Admin Enoxaparin Sodium (Lovenox Inj) 40 mg Q24H SQ 01/26/17 14:00 02/25/17 13:59 01/26/17 14:13 40 MG Acetaminophen (Tylenol Tab) 650 mg Q4H PRN PO 01/26/17 12:00 02/25/17 11:59 Magnesium Hydroxide (Milk Of Magnesia Susp) 30 ml Q6H PRN PO 01/26/17 12:00 02/25/17 11:59 Polyethylene (Miralax Powder Packet) 17 gm DAILY PRN PO 01/26/17 12:00 02/25/17 11:59 Ondansetron HCl (Zofran Inj) 4 mg Q6H PRN IV 01/26/17 12:00 02/25/17 11:59 Aspirin (Ecotrin Tab) 81 mg QAM PO 01/27/17 08:00 02/26/17 07:59 01/27/17 08:00 81 MG Fluticasone Propionate (Flonase Nasal Adah) 2 sprays DAILY DAIN 01/27/17 08:00 02/26/17 07:59 01/27/17 08:44 2 SPRAYS Levothyroxine Sodium (Synthroid Tab) 100 mcg DAILYBB PO 01/27/17 06:30 02/26/17 06:29 01/27/17 06:19 100 MCG Metformin HCl (Glucophage Tab) 1,000 mg BIDM PO 01/26/17 17:00 02/25/17 16:59 01/27/17 08:00 1,000 MG Metoprolol Succinate (Toprol Xl Tab) 25 mg QPM PO 01/26/17 21:00 02/25/17 20:59 01/26/17 21:17 25 MG Potassium Chloride (Klor-Con Tab) 20 meq QAM PO 01/27/17 08:00 02/26/17 07:59 01/27/17 07:59 20 MEQ Spironolactone (Aldactone Tab) 25 mg QAM PO 01/27/17 08:00 02/26/17 07:59 01/27/17 07:59 25 MG Tramadol HCl (Ultram Tab) 50 mg Q8H PRN PO 01/26/17 12:00 02/25/17 11:59 01/27/17 00:19 50 MG Miscellaneous Information (Order Awaiting Action) 1 ea QS N/A 01/26/17 16:00 02/25/17 15:59 Pantoprazole Sodium (Protonix Tab) 40 mg QAM PO 01/27/17 08:00 02/26/17 07:59 01/27/17 07:59 40 MG Vancomycin HCl (Consult) 1 ea UD N/A 01/26/17 12:06 02/25/17 12:05 Insulin Aspart (novoLOG INSULIN PUMP) 1 ea ACHS N/A 01/26/17 12:30 02/25/17 12:29 Insulin Aspart (novoLOG ASPART) SLIDING SCALE PRN PRN SC 01/26/17 12:45 02/25/17 12:44 Glucose (Glucose 40% Gel) UD PRN PO 01/26/17 12:45 02/25/17 12:44 Glucose (Glucose Chew Tab) 1 tabs UD PRN PO 01/26/17 12:45 02/25/17 12:44 Glucagon (Glucagon Inj) 1 mg UD PRN SQ 01/26/17 12:45 02/25/17 12:44 Dextrose (Dextrose 50% 50ML Syringe) 50 ml UD PRN IV 01/26/17 12:45 02/25/17 12:44 Cefepime HCl 2000 mg/Dextrose 112.5 ml @ 200 mls/hr Q8 IV 01/26/17 22:00 02/05/17 21:59 01/27/17 06:20 200 MLS/HR Vancomycin HCl 2000 mg/Sodium Chloride 540 ml @ 200 mls/hr Q12@1100,2300 IV 01/26/17 23:00 02/05/17 22:59 01/26/17 22:28 200 MLS/HR Amiodarone HCl (Cordarone Tab) 200 mg DAILY PO 01/27/17 08:00 02/26/17 07:59 01/27/17 08:00 200 MG Bumetanide (Bumex Tab) 1 mg BID PO 01/26/17 20:00 02/25/17 19:59 01/27/17 08:00 1 MG Losartan Potassium (coZAAR TAB) 25 mg DAILY PO 01/27/17 08:00 02/26/17 07:59 01/27/17 07:59 25 MG Metolazone (Zaroxolyn Tab) 5 mg Q48H PO 01/26/17 14:15 02/25/17 14:14 01/26/17 16:52 5 MG Nitroglycerin (Nitrostat Tab) 0.4 mg PRN UT 01/26/17 14:15 02/25/17 14:14 Insulin Aspart (novoLOG ASPART) SLIDING SCALE G... ACHS SC 01/27/17 06:30 02/26/17 06:29 01/27/17 08:47 2 UNITS Objective Vital Signs Date Time Temp Pulse Resp B/P (MAP) Pulse Ox O2 Delivery O2 Flow Rate FiO2 01/27/17 08:00 98 Room Air 01/27/17 07:47 36.6 72 20 108/64 (79) 98 Room Air 01/27/17 02:20 Room Air 01/27/17 01:01 36.7 71 19 127/56 (79) 93 Room Air 01/26/17 16:30 Room Air 01/26/17 12:37 36.6 72 18 142/81 (101) 96 Room Air 01/26/17 12:37 36.6 72 18 142/81 96 Room Air Physical Exam General Appearance: WD/WN, no apparent distress, + obese Eyes: normal inspection, sclerae normal ENT: normal ENT inspection, pharynx normal Neck: supple, no adenopathy, thyroid normal, trachea midline Respiratory/Chest: chest non-tender, lungs clear, normal breath sounds, no respiratory distress Cardiovascular: regular rate, rhythm, no gallop, no murmur Abdomen: normal bowel sounds, non tender, soft, no organomegaly Extremities: + inflammation, + swelling Neurologic/Psychiatric: alert, oriented x 3 Skin: normal color, + pertinent finding (Serous drainage from right great toe, slightly less erythema right foot and legs.) Laboratory Results Date/Time Source Procedure Growth Status 01/26/17 12:26 Blood Blood Culture Pending Received 01/26/17 12:12 Blood Blood Culture Pending Received Last 24 Hours Test 01/26/17 12:12 01/26/17 12:54 01/26/17 13:01 01/26/17 16:21 White Blood Count 10.93 K/uL Red Blood Count 4.45 M/uL Hemoglobin 12.6 g/dL Hematocrit 38.9 % Mean Corpuscular Volume 87.4 fL Mean Corpuscular Hemoglobin 28.3 pg Mean Corpuscular Hemoglobin Concent 32.4 g/dl Platelet Count 322 K/uL Mean Platelet Volume 9.6 fL Neutrophils (%) (Auto) 74.2 % Lymphocytes (%) (Auto) 11.4 % Monocytes (%) (Auto) 10.7 % Eosinophils (%) (Auto) 2.7 % Basophils (%) (Auto) 0.5 % Neutrophils # (Auto) 8.11 K/uL Lymphocytes # (Auto) 1.25 K/uL Monocytes # (Auto) 1.17 K/uL Eosinophils # (Auto) 0.30 K/uL Basophils # (Auto) 0.05 K/uL RDW Standard Deviation 48.3 fL RDW Coefficient of Variation 15.0 % Immature Granulocyte % (Auto) 0.5 % Immature Granulocyte # (Auto) 0.05 K/uL Sodium Level 137 mmol/L Potassium Level 3.5 mmol/L Chloride Level 99 mmol/L Carbon Dioxide Level 27 mmol/L Anion Gap 11.0 mmol/L Blood Urea Nitrogen 27 mg/dl Creatinine 1.50 mg/dl Est Creatinine Clear Calc Drug Dose 92.8 ml/min Estimated GFR () 60.7 Estimated GFR (Non- 52.4 BUN/Creatinine Ratio 18.3 Random Glucose 99 mg/dl Calcium Level 9.5 mg/dl Prothrombin Time 11.0 SECONDS Prothromb Time International Ratio 1.0 Activated Partial Thromboplast Time 27.2 SECONDS Partial Thromboplastin Ratio 1.0 Bedside Glucose 108 mg/dl 110 mg/dl Test 01/26/17 20:11 01/27/17 01:42 01/27/17 05:49 01/27/17 05:53 Bedside Glucose 122 mg/dl 78 mg/dl 97 mg/dl White Blood Count 10.70 K/uL Red Blood Count 4.52 M/uL Hemoglobin 13.2 g/dL Hematocrit 39.1 % Mean Corpuscular Volume 86.5 fL Mean Corpuscular Hemoglobin 29.2 pg Mean Corpuscular Hemoglobin Concent 33.8 g/dl RDW Standard Deviation 46.8 fL RDW Coefficient of Variation 14.8 % Platelet Count 349 K/uL Mean Platelet Volume 9.6 fL Sodium Level 137 mmol/L Potassium Level 3.6 mmol/L Chloride Level 99 mmol/L Carbon Dioxide Level 30 mmol/L Anion Gap 8.0 mmol/L Blood Urea Nitrogen 28 mg/dl Creatinine 1.40 mg/dl Est Creatinine Clear Calc Drug Dose 99.4 ml/min Estimated GFR () 66.0 Estimated GFR (Non- 57.0 BUN/Creatinine Ratio 20.1 Random Glucose 102 mg/dl Estimated Average Glucose 214 mg/dl Hemoglobin A1c 9.1 % Calcium Level 9.1 mg/dl Test 01/27/17 07:27 Bedside Glucose 123 mg/dl Assessment and Plan 51-year-old male with diabetes and neuropathy now presents with infected right great toe diabetic ulcer with cellulitis involving the foot. Given recent isolation of E coli and strep and previous isolation of Pseudomonas, combination of vancomycin and cefepime appropriate pending further culture results. Would obtain cultures from right great toe drainage. Given inability to do MRI, would consider CT scan of foot. Will follow.
[2017-01-27 10:40] VITALS: BMI 51.3
[2017-01-27] MEDS: VANCOMYCIN INJ 2,000 MG in SODIUM CHLORIDE 0.9% 500ML 500 ML IV SCH ×2 (11:08→23:05)
[2017-01-27] MEDS ORDERED: OPTIRAY 320 IV PRN (11:15)
[2017-01-27] MEDS ORDERED: NURSING VERBAL MED ORDER ONE (12:00)
[2017-01-27] MEDS ORDERED: LANTUS PER UNIT CHARGE SQ SCH (12:00)
[2017-01-27] MEDS: ENOXAPARIN 40 MG/0.4 ML SYR SQ SCH (12:59)
--- NOTE | 2017-01-27 13:46 | DIAGNOSTIC IMAGING REPORT ---
VENOUS DOPPLER LWR EXT BILA CLINICAL HISTORY: 51 years-old Male presenting with R/o DVT. TECHNIQUE: Real-time grayscale and color and spectral Doppler ultrasound imaging of the veins of the bilateral lower extremities was performed. Compression and augmentation were also utilized. COMPARISON: 12/05/2010. FINDINGS: Right: Common femoral vein: Patent. Femoral vein: Patent. Greater saphenous vein: Patent. Popliteal vein: Patent. Calf veins: Limited visualization secondary to subcutaneous edema. Left: Common femoral vein: Patent. Femoral vein: Patent. Greater saphenous vein: Patent. Popliteal vein: Patent. Calf veins: Limited visualization. Other: None. IMPRESSION: No evidence of deep venous thrombosis. Electronically signed by: Don Lombardo M.D. 01/27/2017 1:45 PM Dictated Date/Time: 01/27/2017 1:44 PM
--- NOTE | 2017-01-27 13:59 | DIAGNOSTIC IMAGING REPORT ---
R LOWER EXTREMITY WITH CLINICAL HISTORY: 51 years-old Male presenting with Assess diabetic ulceration, swelling and redness. TECHNIQUE: Multidetector CT of the right foot was performed after the administration of intravenous contrast. IV contrast: None. A dose lowering technique was used consistent with the principles of ALARA (as low as reasonably achievable). COMPARISON: None. CT DOSE (mGy.cm): The estimated cumulative dose is 289.32 mGy.cm. FINDINGS: [employer] topogram: Unremarkable. Diffuse subcutaneous tissue edema throughout the ankle and foot. No focal fluid collection to suggest abscess. Vasculature patent. Atherosclerosis noted. Osseous erosion of the tuft of the distal phalanx of the first toe with an overlying irregularity of the cutis suggesting ulceration. Osseous erosion does not extend to the base of the distal phalanx. No involvement of the interphalangeal joint. No additional site of erosion. No acute fracture or malalignment. Mild degenerative change noted at the ankle mortise. No soft tissue emphysema. IMPRESSION: Osseous erosion at the tuft of the distal phalanx of the first toe consistent with osteomyelitis. No involvement of the interphalangeal joint. Overlying ulceration. No abscess. Electronically signed by: Don Lombardo M.D. 01/27/2017 1:57 PM Dictated Date/Time: 01/27/2017 1:52 PM
[2017-01-27 14:40] VITALS: BP 128/80; PULSE 83; TEMP 36.8; O2SAT 96
[2017-01-27 19:23] VITALS: BP 166/80; PULSE 82
[2017-01-27] MEDS: METOPROLOL SUCC 25MG EXT REL TAB PO SCH (19:26)
[2017-01-28 00:22] VITALS: BP 173/82; PULSE 72; TEMP 36.5; O2SAT 97
[2017-01-28] MEDS: TRAMADOL HCL 50 MG TAB PO PRN (02:35)
[2017-01-28 05:36] LABS: BUN/CREATININE RATIO 19.1 (10-20); CALCIUM 9.7 mg/dl (8.5-10.1); CREATININE 1.5 mg/dl (0.60-1.40); POTASSIUM 3.4 mmol/L (3.5-5.1)
[2017-01-28] MEDS: CEFEPIME IV 2,000 MG in DEXTROSE 5% 100ML 100 ML IV SCH ×3 (05:36→21:22)
[2017-01-28] MEDS: LEVOTHYROXINE 100 MCG TAB PO SCH (05:37)
[2017-01-28] MEDS: NovoLOG INSULIN PUMP SCH ×4 (06:30→20:46)
[2017-01-28] MEDS: INSULIN ASPART 100 UNITS/ML 3 ML PEN SC SCH ×4 (06:30→20:41)
[2017-01-28 07:46] VITALS: BP 136/69; PULSE 71; TEMP 36.7; O2SAT 97
[2017-01-28 07:50] VITALS: O2SAT 97
[2017-01-28 08:00] VITALS: O2SAT 97
[2017-01-28] MEDS: DEXTROSE 50% 50 ML SYR IV PRN (08:06)
[2017-01-28] MEDS ORDERED: POTASSIUM CHLORIDE 20 MEQ TABCR PO ONE (08:15)
[2017-01-28] MEDS: SPIRONOLACTONE 25 MG TAB PO SCH (08:25)
[2017-01-28] MEDS: PANTOprazole SOD 40 MG TAB PO SCH (08:25)
[2017-01-28] MEDS: ASPIRIN 81 MG ECTAB PO SCH (08:26)
[2017-01-28] MEDS: POTASSIUM CHLORIDE 20 MEQ TABCR PO SCH (08:26)
[2017-01-28] MEDS: AMIODARONE 200 MG TAB PO SCH (08:26)
[2017-01-28] MEDS: BUMETANIDE 1 MG TAB PO SCH ×2 (08:26→19:24)
[2017-01-28] MEDS: LOSARTAN POTASSIUM 25 MG TAB PO SCH (08:26)
[2017-01-28] MEDS: FLUTICASONE PROPIONATE NA SPR 16 GM BTL NAE SCH (08:33)
[2017-01-28] MEDS ORDERED: VANCOMYCIN TROUGH ONE (10:30)
[2017-01-28] MEDS: VANCOMYCIN INJ 2,000 MG in SODIUM CHLORIDE 0.9% 500ML 500 ML IV SCH (11:05)
--- NOTE | 2017-01-28 13:10 | Pharmacy Progress Note ---
Pharmacy Antibiotic Prog Note Date of Service Jan 28, 2017. Subjective The patient is currently receiving 2000 mg IV every 12 hours. The patient is currently on day # 3 of IV therapy. Objective Height (Feet): 6 Height (Inches): 0.00 Weight (Kilograms): 171.460 Levels: VT 26.7 Lab Results (24hrs): Test 01/28/17 04:34 01/28/17 08:22 01/28/17 10:21 01/28/17 11:40 Sodium Level 138 mmol/L (136-145) Potassium Level 3.4 mmol/L (3.5-5.1) Chloride Level 99 mmol/L (98-107) Carbon Dioxide Level 30 mmol/L (21-32) Anion Gap 9.0 mmol/L (3-11) Blood Urea Nitrogen 29 mg/dl (7-18) Creatinine 1.50 mg/dl (0.60-1.40) Est Creatinine Clear Calc Drug Dose 92.8 ml/min Estimated GFR () 60.7 Estimated GFR (Non- 52.4 BUN/Creatinine Ratio 19.1 (10-20) Random Glucose 94 mg/dl (70-99) Calcium Level 9.7 mg/dl (8.5-10.1) Magnesium Level 2.0 mg/dl (1.8-2.4) Bedside Glucose 124 mg/dl (70-99) 101 mg/dl (70-99) Vancomycin Level Trough 26.7 mcg/ml (SEE COMMENT) Micro Results: See EMR Assessment & Plan This/These drug level(s) are: Supratherapeutic. Stopped 1100 bag (1G received) and will restart in 24 hours Change 2000 mg IV every 18 hours. Peak and trough or random level has been ordered for: as clinically indicated Pharmacy will continue to follow and will adjust dose/frequency as necessary. Thank you
--- NOTE | 2017-01-28 13:14 | Hospitalist Progress Note ---
Hospitalist Progress Note Date of Service Jan 28, 2017. (Susan Whitaker PA-C) Subjective Pt evaluation today including: conversation w/ patient, physical exam, chart review, lab review, review of studies Pain: Mild R great toe pain PO Intake: Good Voiding: no voiding problems The patient was seen and examined this morning. Pt reports doing well today, he reports was told would need about 6 weeks of IV abx. He had not yet seen orthopedic surgeons. He denies any trouble with sleeping, eating and drinking well. He is having bowel movements without difficulty. Pt has been able to walk to the bathroom without much difficulty or pain. His insulin pump was turned on accidentally early this morning and his glucose dropped to 47 prior to breakfast. Per nursing he was feeling lethargic at that time, recieved 1 amp dextrose and glucose improved. At this point glucose stable. Constitutional: No fever, No chills, No fatigue Eyes: No redness, No discharge ENT: No nasal symptoms, No trouble swallowing Respiratory: No cough, No shortness of breath Cardiovascular: No chest pain, No edema Abdomen: No pain, No nausea, No vomiting, No diarrhea, No constipation Musculoskeletal: + swelling (same or slightly improved), No muscle pain Male : + incontinence Neurologic: + numbness/tingling (bilateral feet at baseline, but does have some sensation to light touch. ), No weakness Endo: No fatigue Skin: No rash, No itch (Susan Whitaker PA-C) Objective Vital Signs Date Time Temp Pulse Resp B/P (MAP) Pulse Ox O2 Delivery O2 Flow Rate FiO2 01/28/17 08:00 97 Room Air 01/28/17 07:50 97 Room Air 01/28/17 07:46 36.7 71 20 136/69 (91) 97 Room Air 01/28/17 00:22 36.5 72 20 173/82 (112) 97 Room Air 01/28/17 00:00 Room Air 01/27/17 19:23 82 166/80 (108) 01/27/17 16:00 Room Air 01/27/17 14:40 36.8 83 20 128/80 (96) 96 Room Air (Susan Whitaker PA-C) Physical Exam Notes: General Appearance: WD/WN, + mild distress, + obese (morbid) Eyes: PERRL, EOMI ENT: hearing grossly normal, pharynx normal Neck: supple, no JVD Respiratory/Chest: lungs clear, no respiratory distress, no accessory muscle use, + pertinent finding (+scar over upper L chest wall s/p defibrillator placement) Cardiovascular: regular rate, rhythm Abdomen: normal bowel sounds, non tender, soft Extremities: + pedal edema, + pertinent finding (+ chronic venous stasis changes. + fluid blister formation on RLE, + R great toe with necrotic plantar surface lesion with serosanginous drainage, + erythema and edema of great toe. + erythema extending up the ankle to distal 1/3 of the RLE. LLE is edematous but no erythema.) Neurologic/Psychiatric: no motor/sensory deficits, alert, oriented x 3 Skin: normal color, warm/dry (Susan Whitaker PA-C) Laboratory Results Last 24 Hours Test 01/27/17 16:33 01/27/17 19:53 01/28/17 04:34 01/28/17 04:54 Bedside Glucose 283 mg/dl 344 mg/dl 70 mg/dl Sodium Level 138 mmol/L Potassium Level 3.4 mmol/L Chloride Level 99 mmol/L Carbon Dioxide Level 30 mmol/L Anion Gap 9.0 mmol/L Blood Urea Nitrogen 29 mg/dl Creatinine 1.50 mg/dl Est Creatinine Clear Calc Drug Dose 92.8 ml/min Estimated GFR () 60.7 Estimated GFR (Non- 52.4 BUN/Creatinine Ratio 19.1 Random Glucose 94 mg/dl Calcium Level 9.7 mg/dl Magnesium Level 2.0 mg/dl Test 01/28/17 06:13 01/28/17 06:29 01/28/17 07:59 01/28/17 08:22 Bedside Glucose 75 mg/dl 83 mg/dl 47 mg/dl 124 mg/dl Test 01/28/17 10:21 01/28/17 11:40 Vancomycin Level Trough 26.7 mcg/ml Bedside Glucose 101 mg/dl (Susan Whitaker PA-C) Assessment and Plan 51 yo M with PMHx of with diabetes and neuropathy now presents with infected right great toe diabetic ulcer with cellulitis involving the foot. R great toe diabetic ulceration with Cellulitis and Osteomyelitis - Wound culture of food grew e.coli and group B beta strep 01/20 , and hx of pseudomonas in past. - wound culture + GNR prelim - vanc and cefepime day #3. - ID on board - appreciate recs - likely will need intermediate abx and therefore need PICC placement - Obtaining CT with contrast as MRI not obtainable secondary to defibrillator - shows limited osteo in the 1st distal phalanx. No involvement of the interphalangeal joint. no abscess. - Bilat lower extremity U/S with recent travel and hospitalization to r/o DVT. - Negative - Consult ortho - await recs re surgical intervention ? - Follows with [facility] for wound care as an outpatient. DM II - Insulin pump working - ISS with accuchecks started, continue ISS - Metformin 1000 mg BID - held 01/27 dose with contrast from CT foot - can resume tonight - Hgb A1C = 9.1, pt reports was checked 1 week ago and was around [address] Zafar. Chronic systolic CHF Recent ablation and cardiac disease Vtach - Pt with recent addition of amiodarone to his regimen. - Continue aspirin 81 mg daily, amiodarone 200 mg daily, Bumex 1 mg PO BID, metolazone 5 mg every other day, and spironolactone 25 mg daily - Potassium replacement for hx of hypokalemia with aggressive diuresis - Last ECHO completed in our system was from 2010 with moderate to mild reduction of LVEF, and likely patent foramen ovale. Consider repeat ECHO. - Received records from recent stay at [facility]. Hypothyroidism - Continue Synthroid 100 mcg daily Vit D Deficiency - Continue Vit D 50,000 U once weekly. GERD - Continue omeprazole 20 mg daily prn Allergic Rhinitis - Continue fluticasone, Dulera 200/5 mcg 2 puffs BID Depressive symptoms - Pt struggling with recent of one sister from pancreatic cancer and another sister who is currently diagnosed with pancreatic cancer. He recently spent 1 month visiting her. He is not on any antidepressants and does not currently see a counselor. He denies need for services at this time. I have encouraged him to talk with other family and friends, and continue good emotional support. - Started wellbutrin 50 mg BID f on 01/27 or mood and hopefully stimulate some energy. Will increase to 100 mg BID in 3-5 days if shows improvement with this. Low side effect profile for sexual dysfunction. Another reasonable choice for the patient would be cymbalta with chronic pain and diabetic neuropathy, or zoloft. DVT ppx: lovenox subq CODE STATUS: FULL CODE Disposition: From home, discharge when medically stable, pending wound culture/ CT scan results, Abx regimen per ID. (Susan Whitaker PA-C) Attending Attestation: Pt seen/examined, chart reviewed, care plan d/w ARCADIO Whitaker. I agree w/ the simms components of her documentation. Had hypoglycemia this am. No other complaints (no dyspnea, cp, etc) VSS no fever gen - obese neck - no JVD heart - RRR lungs - CTA b/l abd - soft ext - 2+ edema on right, 1+ on left, pulses (DPs) 2+ b/l skin - severe stasis changes b/l shins with blistering on right mcknight; erythema of right mcknight modestly improved today; right great toe NOT examined today A/P: 1. right great toe infection, polymicrobial (GPC, GNR), complicated by distal phalanx osteomyelitis Cont IV abx, appreciate ID consult Ortho consult pending but possible ?surgical debridement/partial amp tomorrow? NPO after MN. 2. edema - likely venous insuff + his current infection; CHF appears compensated. continue diuretics can wear compression on left leg; avoid right leg due to current infection. dopplers neg for DVT 3. chronic systolic CHF - compensated; primary bar tacker is aware he is here 4. depression - agree w/ antidepressant 5. T2DM - since he will be NPO will lower basal rate starting at MN tonight to 0.5units/hr (typically is at 0.75units/hr) Charanjit GUO MD (Bryce Guo MD)
[2017-01-28] MEDS: ENOXAPARIN 40 MG/0.4 ML SYR SQ SCH (13:26)
[2017-01-28] MEDS: METOLAZONE 5 MG TAB PO SCH (14:16)
--- NOTE | 2017-01-28 15:43 | Infectious Disease Progress Nt ---
Progress Note Date of Service Jan 28, 2017. Subjective Pt evaluation today including: conversation w/ patient, physical exam, chart review, lab review, review of studies, conversation w/ operations consultant, review of inpatient medication list Patient states he is feeling somewhat better today. Less pain in toe. No fever. Continues to tolerate antibiotic without apparent difficulty. Cultures growing gram-negative bacilli. All Other Systems: Reviewed and Negative Medications Current Inpatient Medications Medications (Trade) Dose Ordered Sig/Pankaj Route Start Time Stop Time Status Last Admin Dose Admin Enoxaparin Sodium (Lovenox Inj) 40 mg Q24H SQ 01/26/17 14:00 02/25/17 13:59 01/28/17 13:26 40 MG Acetaminophen (Tylenol Tab) 650 mg Q4H PRN PO 01/26/17 12:00 02/25/17 11:59 Magnesium Hydroxide (Milk Of Magnesia Susp) 30 ml Q6H PRN PO 01/26/17 12:00 02/25/17 11:59 Polyethylene (Miralax Powder Packet) 17 gm DAILY PRN PO 01/26/17 12:00 02/25/17 11:59 Ondansetron HCl (Zofran Inj) 4 mg Q6H PRN IV 01/26/17 12:00 02/25/17 11:59 Aspirin (Ecotrin Tab) 81 mg QAM PO 01/27/17 08:00 02/26/17 07:59 01/28/17 08:26 81 MG Fluticasone Propionate (Flonase Nasal [place]) 2 sprays DAILY DAIN 01/27/17 08:00 02/26/17 07:59 01/28/17 08:33 2 SPRAYS Levothyroxine Sodium (Synthroid Tab) 100 mcg DAILYBB PO 01/27/17 06:30 02/26/17 06:29 01/28/17 05:37 100 MCG Metformin HCl (Glucophage Tab) 1,000 mg BIDM PO 01/26/17 17:00 02/25/17 16:59 Future Hold 01/27/17 08:00 1,000 MG Metoprolol Succinate (Toprol Xl Tab) 25 mg QPM PO 01/26/17 21:00 02/25/17 20:59 01/27/17 19:26 25 MG Potassium Chloride (Klor-Con Tab) 20 meq QAM PO 01/27/17 08:00 02/26/17 07:59 01/28/17 08:26 20 MEQ Spironolactone (Aldactone Tab) 25 mg QAM PO 01/27/17 08:00 02/26/17 07:59 01/28/17 08:25 25 MG Tramadol HCl (Ultram Tab) 50 mg Q8H PRN PO 01/26/17 12:00 02/25/17 11:59 01/28/17 02:35 50 MG Miscellaneous Information (Order Awaiting Action) 1 ea QS N/A 01/26/17 16:00 02/25/17 15:59 Pantoprazole Sodium (Protonix Tab) 40 mg QAM PO 01/27/17 08:00 02/26/17 07:59 01/28/17 08:25 40 MG Vancomycin HCl (Consult) 1 ea UD N/A 01/26/17 12:06 02/25/17 12:05 Insulin Aspart (novoLOG INSULIN PUMP) 1 ea ACHS N/A 01/26/17 12:30 02/25/17 12:29 01/27/17 21:08 1 EA Insulin Aspart (novoLOG ASPART) SLIDING SCALE PRN PRN SC 01/26/17 12:45 02/25/17 12:44 Glucose (Glucose 40% Gel) UD PRN PO 01/26/17 12:45 02/25/17 12:44 Glucose (Glucose Chew Tab) 1 tabs UD PRN PO 01/26/17 12:45 02/25/17 12:44 01/28/17 06:17 1 TABS Glucagon (Glucagon Inj) 1 mg UD PRN SQ 01/26/17 12:45 02/25/17 12:44 Dextrose (Dextrose 50% 50ML Syringe) 50 ml UD PRN IV 01/26/17 12:45 02/25/17 12:44 01/28/17 08:06 50 ML Cefepime HCl 2000 mg/Dextrose 112.5 ml @ 200 mls/hr Q8 IV 01/26/17 22:00 02/05/17 21:59 01/28/17 13:25 200 MLS/HR Amiodarone HCl (Cordarone Tab) 200 mg DAILY PO 01/27/17 08:00 02/26/17 07:59 01/28/17 08:26 200 MG Bumetanide (Bumex Tab) 1 mg BID PO 01/26/17 20:00 02/25/17 19:59 01/28/17 08:26 1 MG Losartan Potassium (coZAAR TAB) 25 mg DAILY PO 01/27/17 08:00 02/26/17 07:59 01/28/17 08:26 25 MG Metolazone (Zaroxolyn Tab) 5 mg Q48H PO 01/26/17 14:15 02/25/17 14:14 01/28/17 14:16 5 MG Nitroglycerin (Nitrostat Tab) 0.4 mg PRN UT 01/26/17 14:15 02/25/17 14:14 Insulin Aspart (novoLOG ASPART) SLIDING SCALE G... ACHS SC 01/27/17 06:30 02/26/17 06:29 01/27/17 13:10 5 UNITS Ioversol (Optiray 320) 100 ml UD PRN IV 01/27/17 11:15 01/31/17 11:14 Bupropion HCl (Wellbutrin Tab) 50 mg BID PO 01/27/17 20:00 02/26/17 19:59 01/28/17 08:25 50 MG Vancomycin HCl 2000 mg/Sodium Chloride 540 ml @ 200 mls/hr Q18H IV 01/29/17 11:00 02/08/17 10:59 Objective Vital Signs Date Time Temp Pulse Resp B/P (MAP) Pulse Ox O2 Delivery O2 Flow Rate FiO2 01/28/17 08:00 97 Room Air 01/28/17 07:50 97 Room Air 01/28/17 07:46 36.7 71 20 136/69 (91) 97 Room Air 01/28/17 00:22 36.5 72 20 173/82 (112) 97 Room Air 01/28/17 00:00 Room Air 01/27/17 19:23 82 166/80 (108) 01/27/17 16:00 Room Air Physical Exam General Appearance: WD/WN, no apparent distress Eyes: normal inspection, sclerae normal ENT: normal ENT inspection, pharynx normal Neck: supple, no adenopathy, thyroid normal, trachea midline Respiratory/Chest: chest non-tender, lungs clear, normal breath sounds, no respiratory distress Cardiovascular: regular rate, rhythm, no gallop, no murmur Abdomen: normal bowel sounds, non tender, soft, no organomegaly Extremities: non-tender, no calf tenderness Neurologic/Psychiatric: alert, oriented x 3 Skin: normal color, no rash, + pertinent finding (Necrotic right great toe ulcer, erythema right foot about the same) Lymphatic: no adenopathy Laboratory Results Last 24 Hours Test 01/27/17 16:33 01/27/17 19:53 01/28/17 04:34 01/28/17 04:54 Bedside Glucose 283 mg/dl 344 mg/dl 70 mg/dl Sodium Level 138 mmol/L Potassium Level 3.4 mmol/L Chloride Level 99 mmol/L Carbon Dioxide Level 30 mmol/L Anion Gap 9.0 mmol/L Blood Urea Nitrogen 29 mg/dl Creatinine 1.50 mg/dl Est Creatinine Clear Calc Drug Dose 92.8 ml/min Estimated GFR () 60.7 Estimated GFR (Non- 52.4 BUN/Creatinine Ratio 19.1 Random Glucose 94 mg/dl Calcium Level 9.7 mg/dl Magnesium Level 2.0 mg/dl Test 01/28/17 06:13 01/28/17 06:29 01/28/17 07:59 01/28/17 08:22 Bedside Glucose 75 mg/dl 83 mg/dl 47 mg/dl 124 mg/dl Test 01/28/17 10:21 01/28/17 11:40 Vancomycin Level Trough 26.7 mcg/ml Bedside Glucose 101 mg/dl Assessment and Plan 51-year-old male with diabetes and neuropathy now presents with infected right great toe diabetic ulcer with cellulitis involving the foot. Given recent isolation of E coli and strep and previous isolation of Pseudomonas, combination of vancomycin and cefepime appropriate pending further culture results. Continue patient on vancomycin and cefepime pending final culture results. Will follow.
[2017-01-28 16:00] VITALS: O2SAT 97
[2017-01-28] MEDS: METOPROLOL SUCC 25MG EXT REL TAB PO SCH (20:47)
[2017-01-28 23:58] VITALS: BP 160/78; PULSE 72; TEMP 36.6; O2SAT 92
[2017-01-29] MEDS: INSULIN ASPART 100 UNITS/ML VIAL SC SCH ×5 (00:08→21:46)
[2017-01-29] MEDS: TRAMADOL HCL 50 MG TAB PO PRN (00:15)
[2017-01-29] MEDS ORDERED: HYDROCODONE/ACETAMOPHEN 5/325MG TAB PO STA (04:52)
[2017-01-29] MEDS ORDERED: NURSING VERBAL MED ORDER ONE (05:00)
[2017-01-29] MEDS: CEFEPIME IV 2,000 MG in DEXTROSE 5% 100ML 100 ML IV SCH ×3 (05:42→21:40)
[2017-01-29] MEDS: LEVOTHYROXINE 100 MCG TAB PO SCH (05:43)
[2017-01-29 06:26] LABS: HEMATOCRIT 37.3 % (42-52); MEAN CELL VOLUME 86.5 fL (80-100); MEAN CORPUSCULAR HGB CONC 33.5 g/dl (32-36); MEAN PLATELET VOLUME 9.3 fL (7.4-10.4); PLATELET COUNT 329 K/uL (130-400); RED BLOOD COUNT 4.31 M/uL (4.7-6.1); WHITE BLOOD COUNT 10.59 K/uL (4.8-10.8)
[2017-01-29] MEDS: NovoLOG INSULIN PUMP SCH ×4 (06:30→21:00)
[2017-01-29 07:09] LABS: BUN/CREATININE RATIO 17.6 (10-20); CALCIUM 9.9 mg/dl (8.5-10.1); CREATININE 1.5 mg/dl (0.60-1.40); POTASSIUM 3.1 mmol/L (3.5-5.1)
[2017-01-29 07:29] VITALS: BP 131/77; PULSE 53; TEMP 36.9; O2SAT 94
[2017-01-29] MEDS: SPIRONOLACTONE 25 MG TAB PO SCH (07:36)
[2017-01-29] MEDS: FLUTICASONE PROPIONATE NA SPR 16 GM BTL NAE SCH (07:36)
[2017-01-29] MEDS: BUMETANIDE 1 MG TAB PO SCH ×2 (07:36→21:38)
[2017-01-29] MEDS: LOSARTAN POTASSIUM 25 MG TAB PO SCH (07:37)
[2017-01-29] MEDS: AMIODARONE 200 MG TAB PO SCH (07:37)
[2017-01-29] MEDS: ASPIRIN 81 MG ECTAB PO SCH (07:38)
[2017-01-29] MEDS: PANTOprazole SOD 40 MG TAB PO SCH (07:38)
[2017-01-29] MEDS: POTASSIUM CHLORIDE 20 MEQ TABCR PO SCH (07:38)
[2017-01-29 08:00] VITALS: O2SAT 94
[2017-01-29] MEDS ORDERED: POTASSIUM CHLORIDE 10 MEQ TABCR PO ONE (08:30)
--- NOTE | 2017-01-29 08:57 | Hospitalist Progress Note ---
Hospitalist Progress Note Date of Service Jan 29, 2017. (Susan Whitaker PA-C) Subjective Pt evaluation today including: conversation w/ patient, physical exam, chart review, lab review, review of studies Pain: Mild R great toe pain PO Intake: NPO Voiding: no voiding problems The patient was seen and examined this morning. Pt reports feels same as yesterday, still having mild R great toe pain, + slight drainage. He thinks the redness and swelling is a little better. He is anxious about going to the OR today, and knows it will likely happen this evening. Pt didn't sleep well overnight due to being here. He denies fever, chills, sweats. No chest pain, sob, abd pain, n/v/d/c. ROS: 6 point ROS reviewed and negative other than listed above. Constitutional: + fatigue, No fever, No chills Eyes: No redness, No diplopia ENT: No nasal symptoms, No trouble swallowing Respiratory: No cough, No shortness of breath Cardiovascular: No chest pain, No palpitations Abdomen: No pain, No vomiting, No diarrhea Musculoskeletal: + joint pain (Great R toe), + swelling Neurologic: No weakness, No numbness/tingling Skin: No rash, No itch (Susan Whitaker PA-C) Objective Vital Signs Date Time Temp Pulse Resp B/P (MAP) Pulse Ox O2 Delivery O2 Flow Rate FiO2 01/29/17 07:29 36.9 53 16 131/77 (95) 94 Room Air 01/29/17 00:00 Room Air 01/28/17 23:58 36.6 72 20 160/78 (105) 92 Room Air 01/28/17 20:00 Room Air 01/28/17 16:00 97 Room Air (Susan Whitaker PA-C) Physical Exam Notes: General Appearance: WD/WN, + mild distress, + obese (morbid) Eyes: PERRL, EOMI ENT: hearing grossly normal, pharynx normal Neck: supple, no JVD Respiratory/Chest: lungs clear, no respiratory distress, no accessory muscle use, + pertinent finding (+scar over upper L chest wall s/p defibrillator placement) Cardiovascular: regular rate, rhythm Abdomen: normal bowel sounds, non tender, soft Extremities: + pedal edema, + pertinent finding (+ chronic venous stasis changes. + fluid blister formation on RLE, some open now, + R great toe with necrotic plantar surface lesion with serosanginous drainage, open area around lateral border of nail, + erythema and edema of great toe. +Open lesion on lateral L metatarsal with +drainage. + erythema extending up the ankle to distal 1/3 of the RLE. LLE is edematous but no erythema.) Neurologic/Psychiatric: no motor/sensory deficits, alert, oriented x 3 Skin: normal color, warm/dry (Susan Whitaker, WILLIAMSC) Laboratory Results Last 24 Hours Test 01/28/17 10:21 01/28/17 11:40 01/28/17 16:40 01/28/17 20:03 Vancomycin Level Trough 26.7 mcg/ml Bedside Glucose 101 mg/dl 121 mg/dl 226 mg/dl Test 01/29/17 00:03 01/29/17 05:33 01/29/17 05:47 Bedside Glucose 274 mg/dl 115 mg/dl White Blood Count 10.59 K/uL Red Blood Count 4.31 M/uL Hemoglobin 12.5 g/dL Hematocrit 37.3 % Mean Corpuscular Volume 86.5 fL Mean Corpuscular Hemoglobin 29.0 pg Mean Corpuscular Hemoglobin Concent 33.5 g/dl RDW Standard Deviation 46.5 fL RDW Coefficient of Variation 14.8 % Platelet Count 329 K/uL Mean Platelet Volume 9.3 fL Sodium Level 137 mmol/L Potassium Level 3.1 mmol/L Chloride Level 98 mmol/L Carbon Dioxide Level 33 mmol/L Anion Gap 6.0 mmol/L Blood Urea Nitrogen 26 mg/dl Creatinine 1.50 mg/dl Est Creatinine Clear Calc Drug Dose 92.8 ml/min Estimated GFR () 60.7 Estimated GFR (Non- 52.4 BUN/Creatinine Ratio 17.6 Random Glucose 126 mg/dl Calcium Level 9.9 mg/dl (Susan Whitaker PA-C) Assessment and Plan 51 yo M with PMHx of with diabetes and neuropathy now presents with infected right great toe diabetic ulcer with cellulitis involving the foot. R great toe diabetic ulceration with Cellulitis and Osteomyelitis - wound culture 01/27 with + E. coli and Group B beta Strep - CT with contrast - shows limited osteo in the 1st distal phalanx. No involvement of the interphalangeal joint. no abscess. - Plan for OR today for debridement - vanc and cefepime day #4. - ID on board - appreciate recs - determine needs for abx pending intraop procedure - Follows with [place] for wound care as an outpatient. DM II - Insulin pump working - ISS with accuchecks started, continue ISS - Metformin 1000 mg BID - held 01/27 dose with contrast from CT foot - now resumed - Hgb A1C = 9.1 Chronic systolic CHF Recent ablation and cardiac disease Vtach - Pt with recent addition of amiodarone to his regimen. - Continue aspirin 81 mg daily, amiodarone 200 mg daily, Bumex 1 mg PO BID, metolazone 5 mg every other day, and spironolactone 25 mg daily - Potassium replacement increased to 40 meq daily standing order - Last ECHO completed in our system was from 2010 with moderate to mild reduction of LVEF, and likely patent foramen ovale. Consider repeat ECHO. - Received records from recent stay at [place]. Hypothyroidism - Continue Synthroid 100 mcg daily Vit D Deficiency - Continue Vit D 50,000 U once weekly. GERD - Continue omeprazole 20 mg daily prn Allergic Rhinitis - Continue fluticasone, Dulera 200/5 mcg 2 puffs BID Depressive symptoms - Pt struggling with recent of one sister from pancreatic cancer and another sister who is currently diagnosed with pancreatic cancer. He recently spent 1 month visiting her. He is not on any antidepressants and does not currently see a counselor. He denies need for services at this time. I have encouraged him to talk with other family and friends, and continue good emotional support. - Started wellbutrin 50 mg BID f on 01/27 or mood and hopefully stimulate some energy. Will increase to 100 mg BID in 3-5 days if shows improvement with this. Low side effect profile for sexual dysfunction. Another reasonable choice for the patient would be cymbalta with chronic pain and diabetic neuropathy, or zoloft. DVT ppx: lovenox subq CODE STATUS: FULL CODE Disposition: From home, to OR today, Abx regimen per ID (Susan Whitaker, TREVOR) Attending Attestation: Pt seen/examined, chart reviewed, care plan d/w ARCADIO Whitaker. I agree w/ the simms components of her documentation. No events overnight. Feels good. No dyspnea. No pain in any location. VSS no fever gen - obese neck - no JVD heart - RRR lungs - CTA b/l abd - soft ext - 2+ edema on right, 1+ on left, pulses (DPs) 2+ b/l skin - severe stasis changes b/l shins; erythema of right mcknight resolved (stasis changes are symmetric today); right great toe - erythema on skin improved; distal tuft NOT examined today A/P: 1. right great toe infection 2nd to e. coli & group B strep, complicated by distal phalanx osteomyelitis and mild foot/mcknight cellulitis - latter markedly improved Cont IV abx, appreciate ID consult; to switch to IV rocephin today To OR today for surgical debridement (unsure if they will perform partial ampuptation). 2. edema - likely venous insuff + his current infection; CHF appears compensated. continue diuretics can wear compression on left leg; avoid right leg due to current infection. dopplers neg for DVT 3. chronic systolic CHF - compensated 4. depression - agree w/ antidepressant; increase wellbutrin to 100mg BID tomorrow 5. T2DM - controlled with insulin pump 6. hypokalemia - replace, BMP am check mag as well Charanjit GUO MD (Bryce Guo MD)
--- NOTE | 2017-01-29 09:25 | Orthopedic Progress Note ---
Orthopedic Progress Note Date of Service Jan 29, 2017. Subjective Reports: feeling well, Denies: chest pain, SOB, nausea / vomiting, light headedness Objective calves soft nontender, dressing C/D/I, A&O x3, toes mobile MODERATE LOWER EXTREMITY EDEMA AND VENOUS STASIS DISEASE. DRESSING INTACT TO R GREAT TOE Date Time Temp Pulse Resp B/P (MAP) Pulse Ox O2 Delivery O2 Flow Rate FiO2 01/29/17 07:29 36.9 53 16 131/77 (95) 94 Room Air 01/29/17 00:00 Room Air 01/28/17 23:58 36.6 72 20 160/78 (105) 92 Room Air 01/28/17 20:00 Room Air 01/28/17 16:00 97 Room Air Laboratory Results 24 Hours: Test 01/29/17 05:33 Hematocrit 37.3 % Hemoglobin 12.5 g/dL Additional Notes: GRAM STAIN Final 01/28/17-075 RESULT RARE WBCs SEEN FEW GRAM POSITIVE COCCI DEEP WOUND CULTURE Preliminary 01/29/17 Organism 1 ESCHERICHIA COLI QUANITY MANY SENS SENSITIVITY TO FOLLOW Organism 2 GRAM POSITIVE COCCI QUANITY FEW SENS SENSITIVITIES DEPENDENT ON FURTHER IDENTIFICATION 1. ESCHERICHIA COLI Target Route Dose RX AB Cost M.I.C. IQ ------ ----- ------ -- ------ -------- - ------ TRIMET/SULFA R >38 AMPICILLIN S <=8 AMPICILLIN/SUL S <=8/4 CEFAZOLIN S <=8 CEFOTAXIME S <=2 CEFTRIAXONE S <=1 CEFEPIME S <=4 CEFUROXIME S <=4 IMIPENEM S <=1 GENTAMICIN S <=4 TOBRAMYCIN S <=4 AMIKACIN S <=16 CIPROFLOXACIN R >2 LEVOFLOXACIN R >4 ERTAPENEM S <=1 PIP/TAZO S <=16 S = SENSITIVE I = INTERMEDIATE R = RESISTANT Assessment & Plan Assessment: DIABETIC ULCERATION RIGHT GREAT TOE WITH OSTEOMYELITIS Plan: R great toe diabetic ulceration with Cellulitis and Osteomyelitis - Wound culture of food grew e.coli and group B beta strep 01/20 , and hx of pseudomonas in past. - wound culture 01/27 with + E. coli and GPCs prelim report - vanc and cefepime day #5. - ID on board - appreciate recs - likely will need retirement abx and therefore need PICC placement - CT with contrast - shows limited osteo in the 1st distal phalanx. No involvement of the interphalangeal joint. no abscess. - OR TIME CHANGED FROM TODAY TO TOMORROW. WILL MAKE NPO AFTER MIDNIGHT - Follows with [place] for wound care as an outpatient.
[2017-01-29] MEDS: VANCOMYCIN INJ 2,000 MG in SODIUM CHLORIDE 0.9% 500ML 500 ML IV SCH (11:15)
--- NOTE | 2017-01-29 13:52 | Infectious Disease Progress Nt ---
Progress Note Date of Service Jan 29, 2017. Subjective Pt evaluation today including: conversation w/ patient, physical exam, chart review, lab review, review of studies, conversation w/ apprenticeship consultant, review of inpatient medication list still with some pain in her right great toe, drainage minimal. OR delayed till tomorrow. Remains afebrile, tolerating antibiotics without apparent difficulty. All Other Systems: Reviewed and Negative Medications Current Inpatient Medications Medications (Trade) Dose Ordered Sig/Pankaj Route Start Time Stop Time Status Last Admin Dose Admin Enoxaparin Sodium (Lovenox Inj) 40 mg Q24H SQ 01/26/17 14:00 02/25/17 13:59 01/28/17 13:26 40 MG Acetaminophen (Tylenol Tab) 650 mg Q4H PRN PO 01/26/17 12:00 02/25/17 11:59 Magnesium Hydroxide (Milk Of Magnesia Susp) 30 ml Q6H PRN PO 01/26/17 12:00 02/25/17 11:59 Polyethylene (Miralax Powder Packet) 17 gm DAILY PRN PO 01/26/17 12:00 02/25/17 11:59 Ondansetron HCl (Zofran Inj) 4 mg Q6H PRN IV 01/26/17 12:00 02/25/17 11:59 Aspirin (Ecotrin Tab) 81 mg QAM PO 01/27/17 08:00 02/26/17 07:59 01/29/17 07:38 81 MG Fluticasone Propionate (Flonase Nasal [place]) 2 sprays DAILY DAIN 01/27/17 08:00 02/26/17 07:59 01/29/17 07:36 2 SPRAYS Levothyroxine Sodium (Synthroid Tab) 100 mcg DAILYBB PO 01/27/17 06:30 02/26/17 06:29 01/28/17 05:37 100 MCG Metformin HCl (Glucophage Tab) 1,000 mg BIDM PO 01/26/17 17:00 02/25/17 16:59 Future Hold 01/27/17 08:00 1,000 MG Metoprolol Succinate (Toprol Xl Tab) 25 mg QPM PO 01/26/17 21:00 02/25/17 20:59 01/28/17 20:47 25 MG Spironolactone (Aldactone Tab) 25 mg QAM PO 01/27/17 08:00 11/2/17 07:59 01/29/17 07:36 25 MG Tramadol HCl (Ultram Tab) 50 mg Q8H PRN PO 01/26/17 12:00 02/25/17 11:59 01/29/17 00:15 50 MG Miscellaneous Information (Order Awaiting Action) 1 ea QS N/A 01/26/17 16:00 02/25/17 15:59 Pantoprazole Sodium (Protonix Tab) 40 mg QAM PO 01/27/17 08:00 02/26/17 07:59 01/29/17 07:38 40 MG Vancomycin HCl (Consult) 1 ea UD N/A 01/26/17 12:06 02/25/17 12:05 Insulin Aspart (novoLOG INSULIN PUMP) 1 ea ACHS N/A 01/26/17 12:30 02/25/17 12:29 01/28/17 20:46 1 EA Glucose (Glucose 40% Gel) UD PRN PO 01/26/17 12:45 02/25/17 12:44 Glucose (Glucose Chew Tab) 1 tabs UD PRN PO 01/26/17 12:45 02/25/17 12:44 01/28/17 06:17 1 TABS Glucagon (Glucagon Inj) 1 mg UD PRN SQ 01/26/17 12:45 02/25/17 12:44 Dextrose (Dextrose 50% 50ML Syringe) 50 ml UD PRN IV 01/26/17 12:45 02/25/17 12:44 01/28/17 08:06 50 ML Cefepime HCl 2000 mg/Dextrose 112.5 ml @ 200 mls/hr Q8 IV 01/26/17 22:00 02/05/17 21:59 01/29/17 05:42 200 MLS/HR Amiodarone HCl (Cordarone Tab) 200 mg DAILY PO 01/27/17 08:00 02/26/17 07:59 01/29/17 07:37 200 MG Bumetanide (Bumex Tab) 1 mg BID PO 01/26/17 20:00 02/25/17 19:59 01/29/17 07:36 1 MG Losartan Potassium (coZAAR TAB) 25 mg DAILY PO 01/27/17 08:00 02/26/17 07:59 01/29/17 07:37 25 MG Metolazone (Zaroxolyn Tab) 5 mg Q48H PO 01/26/17 14:15 02/25/17 14:14 01/28/17 14:16 5 MG Nitroglycerin (Nitrostat Tab) 0.4 mg PRN [place] 01/26/17 14:15 02/25/17 14:14 Ioversol (Optiray 320) 100 ml UD PRN IV 01/27/17 11:15 01/31/17 11:14 Bupropion HCl (Wellbutrin Tab) 50 mg BID PO 01/27/17 20:00 02/26/17 19:59 01/29/17 07:38 50 MG Vancomycin HCl 2000 mg/Sodium Chloride 540 ml @ 200 mls/hr Q18H IV 01/29/17 11:00 02/08/17 10:59 01/29/17 11:15 200 MLS/HR Insulin Aspart (novoLOG ASPART) SLIDING SCALE Q6H SC 01/29/17 00:00 02/25/17 12:44 01/29/17 00:08 6 UNITS Potassium Chloride (Klor-Con Tab) 40 meq QAM PO 01/30/17 08:00 02/26/17 07:59 Objective Vital Signs Date Time Temp Pulse Resp B/P (MAP) Pulse Ox O2 Delivery O2 Flow Rate FiO2 01/29/17 08:00 94 Room Air 01/29/17 07:29 36.9 53 16 131/77 (95) 94 Room Air 01/29/17 00:00 Room Air 01/28/17 23:58 36.6 72 20 160/78 (105) 92 Room Air 01/28/17 20:00 Room Air 01/28/17 16:00 97 Room Air Physical Exam General Appearance: WD/WN, no apparent distress Eyes: normal inspection, sclerae normal ENT: normal ENT inspection, pharynx normal Neck: supple, no adenopathy, trachea midline Respiratory/Chest: chest non-tender, lungs clear, normal breath sounds, no respiratory distress Cardiovascular: regular rate, rhythm, no gallop, no murmur Abdomen: normal bowel sounds, non tender, soft, no organomegaly Extremities: non-tender, no calf tenderness Neurologic/Psychiatric: alert, oriented x 3 Skin: normal color, no rash, + pertinent finding (tip right great toe necrotic) Lymphatic: no adenopathy Laboratory Results RUN DATE: 01/29/17 [facility] LAB PAGE 1 RUN TIME: 1325 Specimen Inquiry PATIENT: STANISLAW ALCANTAR JR LOC: [place] U # : [id number] AGE/SX: 51/M ROOM: [facility] REG : 01/26/[address]: Bryce Guo MD : [id number] BED: 1 DIS : STATUS: ADM IN TLOC: SPEC #: [id number] JUSTIN: 01/27/17 STATUS: RES REQ #: [id number] RECD: 01/27/[address]: Susan Whitaker PA-C SOURCE: TISSUE ENTR: 01/27/[address] [facility] [address]: Elfego Plata MD SPDESC: 1ST Imer Lee M.D. Kopinski, Laura, D.O. Sensiba, Paul R., M.D. Siuta, Jonathan R., MD ORDERED: DEP WND CUL/SMR COMMENTS: Specimen Comment R great toe plantar surface ulceration Has Specimen Been Obtained/Collected? Y Procedure Result Verified Site GRAM STAIN Final 01/28/17-1258 RESULT RARE WBCs SEEN FEW GRAM POSITIVE COCCI DEEP WOUND CULTURE Preliminary 01/29/17-9205 Organism 1 ESCHERICHIA COLI QUANITY MANY SENS SENSITIVITY TO FOLLOW +MIXWOUND PLUS MODERATE COUNTS OF PROBABLE SKIN TOÑO Organism 2 GROUP B BETA STREP QUANITY FEW SENS SENSITIVITY TO FOLLOW 1. ESCHERICHIA COLI Target Route Dose RX AB Cost M.I.C. IQ ------ ----- ------ -- ------ -------- - ------ TRIMET/SULFA R >2/38 AMPICILLIN S <=8 AMPICILLIN/SUL S <=8/4 CEFAZOLIN S <=8 CEFOTAXIME S <=2 CEFTRIAXONE S <=1 CEFEPIME S <=4 CEFUROXIME S <=4 IMIPENEM S <=1 GENTAMICIN S <=4 TOBRAMYCIN S <=4 AMIKACIN S <=16 CIPROFLOXACIN R >2 LEVOFLOXACIN R >4 ERTAPENEM S <=1 PIP/TAZO S <=16 S = SENSITIVE I = INTERMEDIATE R = RESISTANT Last 24 Hours Test 01/28/17 16:40 01/28/17 20:03 01/29/17 00:03 01/29/17 05:33 Bedside Glucose 121 mg/dl 226 mg/dl 274 mg/dl White Blood Count 10.59 K/uL Red Blood Count 4.31 M/uL Hemoglobin 12.5 g/dL Hematocrit 37.3 % Mean Corpuscular Volume 86.5 fL Mean Corpuscular Hemoglobin 29.0 pg Mean Corpuscular Hemoglobin Concent 33.5 g/dl RDW Standard Deviation 46.5 fL RDW Coefficient of Variation 14.8 % Platelet Count 329 K/uL Mean Platelet Volume 9.3 fL Sodium Level 137 mmol/L Potassium Level 3.1 mmol/L Chloride Level 98 mmol/L Carbon Dioxide Level 33 mmol/L Anion Gap 6.0 mmol/L Blood Urea Nitrogen 26 mg/dl Creatinine 1.50 mg/dl Est Creatinine Clear Calc Drug Dose 92.8 ml/min Estimated GFR () 60.7 Estimated GFR (Non- 52.4 BUN/Creatinine Ratio 17.6 Random Glucose 126 mg/dl Calcium Level 9.9 mg/dl Test 01/29/17 05:47 01/29/17 11:52 Bedside Glucose 115 mg/dl 112 mg/dl Assessment and Plan 51-year-old male with diabetes and neuropathy now presents with infected right great toe diabetic ulcer with cellulitis involving the foot and distal right great toe osteomyelitis. Cultures with E. coli and Strep. Will change to IV ceftriaxone. For surgery later today. Will follow.
[2017-01-29] MEDS: ENOXAPARIN 40 MG/0.4 ML SYR SQ SCH (13:55)
[2017-01-29 16:00] VITALS: O2SAT 94
[2017-01-29 16:07] VITALS: BP 122/72; PULSE 72; TEMP 36.6; O2SAT 97
[2017-01-29 16:33] VITALS: BMI 51.3
[2017-01-29] MEDS: METOPROLOL SUCC 25MG EXT REL TAB PO SCH (21:38)
[2017-01-29 23:07] VITALS: BP 143/80; PULSE 82; TEMP 36.5; O2SAT 95
[2017-01-30] MEDS ORDERED: NURSING VERBAL MED ORDER ONE ×2 (00:15→19:30)
[2017-01-30] MEDS ORDERED: ZOLPIDEM TARTRATE 5 MG TAB PO PRN (00:15)
[2017-01-30] MEDS: INSULIN ASPART 100 UNITS/ML VIAL SC SCH ×2 (00:24→06:14)
[2017-01-30] MEDS: TRAMADOL HCL 50 MG TAB PO PRN ×2 (02:25→18:07)
[2017-01-30] MEDS ORDERED: HYDROCODONE/ACETAMOPHEN 5/325MG TAB PO STA (04:22)
[2017-01-30] MEDS: VANCOMYCIN INJ 2,000 MG in SODIUM CHLORIDE 0.9% 500ML 500 ML IV SCH (04:43)
[2017-01-30] MEDS: CEFEPIME IV 2,000 MG in DEXTROSE 5% 100ML 100 ML IV SCH (05:58)
[2017-01-30] MEDS: LEVOTHYROXINE 100 MCG TAB PO SCH (05:58)
[2017-01-30] MEDS ORDERED: FENTANYL CITRATE INJ 50 MCG/1 ML 2 ML VIAL ONE (07:11)
[2017-01-30] MEDS ORDERED: LIDOCAINE HCL 2% 2 ML VIAL (20MG/ML) ONE (07:11)
[2017-01-30] MEDS ORDERED: MIDAZOLAM HCL 1 MG/ML 2ML VIAL ONE (07:11)
[2017-01-30] MEDS ORDERED: PROPOFOL IV EMULSION 10 MG/ML 20 ML VIAL IV ONE (07:11)
[2017-01-30] MEDS ORDERED: DEXAMETHASONE SOD INJ 4 MG/ML VIAL ONE (07:11)
[2017-01-30] MEDS ORDERED: ONDANSETRON INJ 2 MG/ML 2 ML VIAL ONE (07:11)
[2017-01-30] MEDS ORDERED: BUPIVACAINE 0.5 % 5 MG/1 ML MPF 30ML VIAL ONE (07:20)
[2017-01-30] MEDS ORDERED: BACITRACIN 50000 UNIT VIAL ONE (07:20)
--- NOTE | 2017-01-30 07:42 | History & Physical Bridge Note ---
H&P Re-Evaluation Bridge Note: I have examined the patient, reviewed the History & Physical and in the interval since the performance of the History & Physical I have noted the following changes of clinical significance: To OR for debridement right great toe with possible partial amputation.
[2017-01-30 07:44] LABS: BUN/CREATININE RATIO 18.1 (10-20); CALCIUM 9.3 mg/dl (8.5-10.1); CREATININE 1.7 mg/dl (0.60-1.40); MAGNESIUM 2.3 mg/dl (1.8-2.4); POTASSIUM 3.9 mmol/L (3.5-5.1)
[2017-01-30 07:54] LABS: BETA-HYDROXYBUTYRATE 3.25 mg/dL (0.2-2.81)
[2017-01-30] MEDS ORDERED: ONDANSETRON INJ 2 MG/ML 2 ML VIAL IV PRN (08:45)
[2017-01-30] MEDS ORDERED: FENTANYL CITRATE INJ 50 MCG/1 ML 2 ML VIAL IV PRN (08:45)
[2017-01-30] MEDS ORDERED: ATROPINE SULFATE 0.1 MG/ML 5ML SYR IV PRN (08:45)
[2017-01-30] MEDS ORDERED: EpHEDrine SULFATE INJ 50 MG/ML AMP IV PRN (08:45)
[2017-01-30] MEDS ORDERED: LIDOCAINE HCL 1% MPF 5 ML VIAL INJ ONE (08:48)
--- NOTE | 2017-01-30 08:51 | [facility] Post Operative Brief Note ---
Immediate Operative Summary Operative Date Jan 30, 2017. Pre-Operative Diagnosis Right Great Toe Diabetic Ulceration; Osteomyelitis Great Toe Post-Operative Diagnosis Right Great Toe Diabetic Ulceration; Osteomyelitis Great Toe Distal Phalanx Procedure(s) Performed 1. Partial Amputation Right Great Toe. 2. Right Great Toe Irrigation and Debridement DM Ulcer. Surgeon Dr. Vince Bates Drawing In Machine Tender Helper Surgeon(s) Leo Yanes PA-C Estimated Blood Loss 1cc Findings See dict Specimens A: Partial Right Great Toe Drains None Anesthesia Digital block w/ sedation Complication(s) None Disposition Recovery Room / PACU
[2017-01-30] MEDS ORDERED: NovoLIN-R INSULIN PER UNIT CHARGE ONE (09:10)
--- NOTE | 2017-01-30 09:34 | OPERATIVE REPORT ---
DATE OF OPERATION: 01/30/2017 PREOPERATIVE DIAGNOSES: 1. Right great toe osteomyelitis of the distal phalanx. 2. Diabetic ulcer, right great toe. POSTOPERATIVE DIAGNOSES: Same. PROCEDURE: 1. Partial amputation, right great toe. 2. Irrigation and debridement diabetic ulcer, right great toe. SURGEON: Dr. Bates. INVENTORY AUDIT CLERK: Leo Yanes PA-C, who was present for patient positioning, sterile prep and drape, management of retractors and instruments. He was present through the critical portions of the case including wound closure, application of sterile dressing and transport of the patient to recovery. ANESTHESIA: Digital block with sedation. SPECIMENS: Distal right great toe. DRAINS: None. COMPLICATIONS: None. BLOOD LOSS: 1 mL PERTINENT HISTORY: This is a 51-year-old diabetic gentleman who presented with ulceration of his great toe with erythema and cellulitis progressing up the leg. The patient had attempted care at the diabetic wound clinic for some time. He developed increasing redness the week prior and was using amoxicillin. He had progression of infection symptoms and purulent discharge in the toe, presented to the ER, admitted to the hospital for further care and management. The patient had positive culture of E. coli and group B strep. The patient had an MRI which demonstrated osteomyelitis in the distal phalanx of the great toe and the patient was then scheduled for surgery as indicated. All potential risks, benefits, complications, alternatives, rehab, potential for incomplete relief of symptoms, need for further surgery, DVT, PE, , persistent pain, swelling, scarring, weakness, neurovascular injury, wound complications, need for possible future amputation were discussed with the patient. The patient decided to proceed with the procedure as indicated. PROCEDURE IN DETAIL: The patient was taken to the operative suite, placed supine on the table. I reviewed the consent and identification of proper operative site. The patient was sedated. The right lower extremity was then sterilely prepped and draped in usual fashion, elevated and partially exsanguinated from the hindfoot proximally and then a sterile Esmarch was used to apply a sterile tourniquet over a sterile towel at the level of the ankle. Next, digital block was performed with approximately 14 mL of 1% lidocaine around the base of the great toe. Next, a 15 blade scalpel was then used to make an incision dorsally and then a racquet-shaped larger plantar flap incision was made with a 15 blade scalpel. The diabetic ulcer was debrided sharply with a 15 blade scalpel from the skin in the subcutaneous tissue. Necrotic portions of the toe were removed and the joint was then entered and 15 blade dissection was performed in the collateral ligaments and the plantar plate. Next, the toe was then peeled distally, resecting the necrotic osteomyelitic distal phalanx which was obviously softened and infected. Consistency of the distal portion of the distal phalanx was that of putty. The distal phalanx was then passed off as specimen for pathology and the remainder of the plantar flap was then fashioned with a 15 blade scalpel, appropriately shaped for tension-free closure, and the wound was then copiously irrigated with sterile normal saline with bacitracin. The bone biting rongeur was then used to resect the condyles of the proximal phalanx and the wound was then once again irrigated with sterile normal saline and bacitracin and the skin was then closed using interrupted 3-0 nylon sutures. A sterile, lightly compressive dressing was applied to the right great toe and right foot, overwrapped with an Hilario wrap. Tourniquet was released. The patient was awakened and taken to recovery in stable condition. I attest to the content of the Intraoperative Record and any orders documented therein. Any exception s are noted below.
--- NOTE | 2017-01-30 09:59 | Anesthesiology Progress Note ---
Anesthesia Post Op Note Date & Time Jan 30, 2017 at 09:57 Vital Signs Pain Intensity: 0 Vital Signs Past 12 Hours Date Time Temp Pulse Resp B/P (MAP) Pulse Ox O2 Delivery O2 Flow Rate FiO2 01/30/17 09:45 70 16 151/74 96 Room Air 01/30/17 09:35 69 16 140/67 97 Room Air 01/30/17 09:20 68 16 158/80 97 Room Air 01/30/17 09:10 69 16 164/76 100 Oxymask 5 01/30/17 09:02 36.5 85 16 175/79 100 Oxymask 5 01/30/17 00:00 Room Air 01/29/17 23:07 36.5 82 20 143/80 (101) 95 Room Air Notes Mental Status: alert / awake / arousable, participated in evaluation Pt Amnestic to Procedure: Yes Nausea / Vomiting: adequately controlled Pain: adequately controlled Airway Patency, RR, SpO2: stable & adequate BP & HR: stable & adequate Hydration State: stable & adequate Anesthetic Complications: no major complications apparent Patient treated in PACU for continued elevated BG. BG improving, but still high. Floor informed to ensure patient continues to receive treatment for elevated BG.
[2017-01-30 10:15] VITALS: O2SAT 96
[2017-01-30] MEDS: ASPIRIN 81 MG ECTAB PO SCH (10:21)
[2017-01-30] MEDS: AMIODARONE 200 MG TAB PO SCH (10:21)
[2017-01-30] MEDS: LOSARTAN POTASSIUM 25 MG TAB PO SCH (10:21)
[2017-01-30] MEDS: BUMETANIDE 1 MG TAB PO SCH ×2 (10:21→21:14)
[2017-01-30] MEDS: POTASSIUM CHLORIDE 20 MEQ TABCR PO SCH (10:22)
[2017-01-30] MEDS: SPIRONOLACTONE 25 MG TAB PO SCH (10:22)
[2017-01-30] MEDS: PANTOprazole SOD 40 MG TAB PO SCH (10:22)
[2017-01-30] MEDS: CEFTRIAXONE SOD INJ 1 GM in DEXTROSE 5% ADD-VANTAGE 50ML 50 ML IV SCH (10:31)
[2017-01-30 10:35] VITALS: BP 167/72; PULSE 69; TEMP 36.4; O2SAT 94
[2017-01-30] MEDS: FLUTICASONE PROPIONATE NA SPR 16 GM BTL NAE SCH (10:43)
[2017-01-30 11:06] VITALS: BP 169/74; PULSE 67; TEMP 36.1; O2SAT 96
[2017-01-30] MEDS ORDERED: INSULIN ASPART 100 UNITS/ML 3 ML PEN SC SCH ×3 (12:00→18:00)
[2017-01-30 12:07] VITALS: BP 139/72; PULSE 71; TEMP 36.2; O2SAT 95
[2017-01-30 12:59] VITALS: Ht 182.9 cm; Wt 171.5 kg
[2017-01-30] MEDS: ENOXAPARIN 40 MG/0.4 ML SYR SQ SCH (14:06)
[2017-01-30] MEDS: METOLAZONE 5 MG TAB PO SCH (14:25)
[2017-01-30 15:12] VITALS: BP 147/72; PULSE 67; TEMP 36.6; O2SAT 96
[2017-01-30 16:00] VITALS: O2SAT 94
[2017-01-30] MEDS ORDERED: MODERATE STRESS LEVEL ONE (16:30)
[2017-01-30] MEDS ORDERED: DC ALL PREVIOUSLY ORDERED DIABETES MEDS ONE (16:30)
[2017-01-30] MEDS ORDERED: INSULIN PROTOCOL GOAL RANGE ONE (16:30)
--- NOTE | 2017-01-30 16:36 | Progress Note ---
Subjective Date of Service: Jan 30, 2017. Subjective pt feels well still slightly groggy after procedure Review of Systems Constitutional: No fever, No chills Respiratory: No cough, No shortness of breath, No dyspnea on exertion Musculoskeletal: No joint pain, No muscle pain Objective Vital Signs Date Time Temp Pulse Resp B/P (MAP) Pulse Ox O2 Delivery O2 Flow Rate FiO2 01/30/17 15:12 36.6 67 16 147/72 (97) 96 Room Air 01/30/17 12:07 36.2 71 16 139/72 (94) 95 Room Air 01/30/17 11:06 36.1 67 16 169/74 (105) 96 Room Air 01/30/17 10:35 36.4 69 16 167/72 (103) 94 Room Air 01/30/17 10:15 96 Room Air 4.0 01/30/17 10:00 36.6 62 16 135/63 96 Room Air 01/30/17 09:45 70 16 151/74 96 Room Air 01/30/17 09:35 69 16 140/67 97 Room Air 01/30/17 09:20 68 16 158/80 97 Room Air 01/30/17 09:10 69 16 164/76 100 Oxymask 5 01/30/17 09:02 36.5 85 16 175/79 100 Oxymask 5 01/30/17 00:00 Room Air 01/29/17 23:07 36.5 82 20 143/80 (101) 95 Room Air Physical Exam General Appearance: WD/WN, + mild distress Eyes: PERRL, EOMI Respiratory/Chest: chest non-tender, lungs clear, no accessory muscle use Cardiovascular: regular rate, rhythm, no murmur Abdomen: normal bowel sounds, non tender, soft Extremities: + pertinent finding Skin: + pertinent finding (s/p orthopedic debridemenet) Laboratory Results Last 24 Hours Test 01/29/17 16:44 01/29/17 19:55 01/29/17 23:51 01/30/17 06:00 Bedside Glucose 171 mg/dl 200 mg/dl 339 mg/dl 363 mg/dl Test 01/30/17 06:50 01/30/17 06:59 01/30/17 07:29 01/30/17 09:07 Sodium Level 132 mmol/L Potassium Level 3.9 mmol/L Chloride Level 97 mmol/L Carbon Dioxide Level 26 mmol/L Anion Gap 9.0 mmol/L Blood Urea Nitrogen 31 mg/dl Creatinine 1.70 mg/dl Est Creatinine Clear Calc Drug Dose 81.8 ml/min Estimated GFR () 52.2 Estimated GFR (Non- 45.0 BUN/Creatinine Ratio 18.1 Random Glucose 355 mg/dl Calcium Level 9.3 mg/dl Magnesium Level 2.3 mg/dl Beta-Hydroxybutyric Acid 3.25 mg/dL Bedside Glucose 348 mg/dl 336 mg/dl 336 mg/dl Test 01/30/17 09:27 01/30/17 09:41 01/30/17 11:00 01/30/17 16:00 Bedside Glucose 339 mg/dl 312 mg/dl 330 mg/dl 457 mg/dl Assessment and Plan 51 yo M with PMHx of with diabetes and neuropathy now presents with infected right great toe diabetic ulcer with cellulitis involving the foot. R great toe diabetic ulceration with Cellulitis and Osteomyelitis - wound culture 01/27 with + E. coli and Group B beta Strep, vanc and cefepime - CT with contrast - shows limited osteo in the 1st distal phalanx. No involvement of the interphalangeal joint. no abscess. - OR 01/30 - Follows with [facility] for wound care as an outpatient. DM II, outof control, will start insulin gtt, and if controlled return to pump - Metformin 1000 mg BID - held 01/27 dose with contrast from CT foot - now resumed - Hgb A1C = 9.1 Chronic systolic CHF previous ablation for Vtach and cardiac disease aspirin 81 mg daily, amiodarone 200 mg daily, Bumex 1 mg PO BID, metolazone 5 mg every other day, and spironolactone 25 mg daily - Potassium replacement increased to 40 meq daily standing order - Last ECHO completed in our system was from 2010 with moderate to mild reduction of LVEF Hypothyroidism Synthroid 100 mcg daily Vit D Deficiency Vit D 50,000 U once weekly. GERD omeprazole 20 mg daily prn Allergic Rhinitis - Continue fluticasone, Dulera 200/5 mcg 2 puffs BID Depressive symptoms recent of one sister from pancreatic cancer and another sister who is currently diagnosed with pancreatic cancer. wellbutrin 50 mg BID on 01/27 or mood and hopefully stimulate some energy. Will increase to 100 mg BID in 3-5 days if shows improvement with this. DVT ppx: lovenox subq CODE STATUS: FULL CODE
[2017-01-30] MEDS ORDERED: INSULIN IV INFUSION PROTOCOL SCH (17:00)
[2017-01-30] MEDS ORDERED: INSULIN HUMAN REGULAR IV BOLUS 4.5 UNIT in SYRINGE 0 ML IV ONE (18:00)
[2017-01-30] MEDS: INSULIN REGULAR 250 UNITS in SODIUM CHLORIDE 0.9% 250ML 250 ML IV SCH ×5 (18:41→22:47)
--- NOTE | 2017-01-30 20:15 | Infectious Disease Progress Nt ---
Progress Note Date of Service Jan 30, 2017. Subjective Pt evaluation today including: conversation w/ patient, physical exam, chart review, lab review, review of studies, conversation w/ sr technical sales consultant, review of inpatient medication list patient now status post partial amputation of the right great toe. Appears comfortable, offers no new specific complaints. Pain controlled. Remains afebrile. All Other Systems: Reviewed and Negative Medications Current Inpatient Medications Medications (Trade) Dose Ordered Sig/Pankaj Route Start Time Stop Time Status Last Admin Dose Admin Enoxaparin Sodium (Lovenox Inj) 40 mg Q24H SQ 01/26/17 14:00 02/25/17 13:59 01/30/17 14:06 40 MG Acetaminophen (Tylenol Tab) 650 mg Q4H PRN PO 01/26/17 12:00 02/25/17 11:59 Magnesium Hydroxide (Milk Of Magnesia Susp) 30 ml Q6H PRN PO 01/26/17 12:00 02/25/17 11:59 Polyethylene (Miralax Powder Packet) 17 gm DAILY PRN PO 01/26/17 12:00 02/25/17 11:59 Ondansetron HCl (Zofran Inj) 4 mg Q6H PRN IV 01/26/17 12:00 02/25/17 11:59 Aspirin (Ecotrin Tab) 81 mg QAM PO 01/27/17 08:00 02/26/17 07:59 01/30/17 10:21 81 MG Fluticasone Propionate (Flonase Nasal [place]) 2 sprays DAILY DAIN 01/27/17 08:00 02/26/17 07:59 01/30/17 10:43 2 SPRAYS Levothyroxine Sodium (Synthroid Tab) 100 mcg DAILYBB PO 01/27/17 06:30 02/26/17 06:29 01/30/17 05:58 100 MCG Metoprolol Succinate (Toprol Xl Tab) 25 mg QPM PO 01/26/17 21:00 02/25/17 20:59 01/29/17 21:38 25 MG Spironolactone (Aldactone Tab) 25 mg QAM PO 01/27/17 08:00 02/26/17 07:59 01/30/17 10:22 25 MG Tramadol HCl (Ultram Tab) 50 mg Q8H PRN PO 01/26/17 12:00 02/25/17 11:59 01/30/17 18:07 50 MG Miscellaneous Information (Order Awaiting Action) 1 ea QS N/A 01/26/17 16:00 02/25/17 15:59 Pantoprazole Sodium (Protonix Tab) 40 mg QAM PO 01/27/17 08:00 02/26/17 07:59 01/30/17 10:22 40 MG Glucose (Glucose 40% Gel) UD PRN PO 01/26/17 12:45 02/25/17 12:44 Glucose (Glucose Chew Tab) 1 tabs UD PRN PO 01/26/17 12:45 02/25/17 12:44 01/28/17 06:17 1 TABS Glucagon (Glucagon Inj) 1 mg UD PRN SQ 01/26/17 12:45 02/25/17 12:44 Dextrose (Dextrose 50% 50ML Syringe) 50 ml UD PRN IV 01/26/17 12:45 02/25/17 12:44 01/28/17 08:06 50 ML Amiodarone HCl (Cordarone Tab) 200 mg DAILY PO 01/27/17 08:00 02/26/17 07:59 01/30/17 10:21 200 MG Bumetanide (Bumex Tab) 1 mg BID PO 01/26/17 20:00 02/25/17 19:59 01/30/17 10:21 1 MG Losartan Potassium (coZAAR TAB) 25 mg DAILY PO 01/27/17 08:00 02/26/17 07:59 01/30/17 10:21 25 MG Metolazone (Zaroxolyn Tab) 5 mg Q48H PO 01/26/17 14:15 02/25/17 14:14 01/30/17 14:25 5 MG Nitroglycerin (Nitrostat Tab) 0.4 mg PRN UT 01/26/17 14:15 02/25/17 14:14 Ioversol (Optiray 320) 100 ml UD PRN IV 01/27/17 11:15 01/31/17 11:14 Potassium Chloride (Klor-Con Tab) 40 meq QAM PO 01/30/17 08:00 02/26/17 07:59 01/30/17 10:22 40 MEQ Bupropion HCl (Wellbutrin Tab) 100 mg BID PO 01/30/17 08:00 02/26/17 19:59 01/30/17 10:22 100 MG Zolpidem Tartrate (Ambien Tab) 5 mg HSZ PRN PO 01/30/17 00:15 03/01/17 00:14 01/30/17 00:23 5 MG Ceftriaxone Sodium 1 gm/ Dextrose 50 ml @ 100 mls/hr Q24H IV 01/30/17 10:00 02/09/17 09:59 01/30/17 10:31 100 MLS/HR Insulin Human Regular 250 units/ Sodium Chloride 252.5 ml @ 0 mls/hr DAILY@1130 IV 01/30/17 18:04 03/01/17 18:03 01/30/17 19:39 5.2 MLS/HR Insulin Aspart (novoLOG ASPART) SLIDING SCALE ACHS SC 01/30/17 21:00 03/01/17 20:59 Objective Vital Signs Date Time Temp Pulse Resp B/P (MAP) Pulse Ox O2 Delivery O2 Flow Rate FiO2 01/30/17 16:00 94 Room Air 01/30/17 15:12 36.6 67 16 147/72 (97) 96 Room Air 01/30/17 12:07 36.2 71 16 139/72 (94) 95 Room Air 01/30/17 11:06 36.1 67 16 169/74 (105) 96 Room Air 01/30/17 10:35 36.4 69 16 167/72 (103) 94 Room Air 01/30/17 10:15 96 Room Air 4.0 01/30/17 10:00 36.6 62 16 135/63 96 Room Air 01/30/17 09:45 70 16 151/74 96 Room Air 01/30/17 09:35 69 16 140/67 97 Room Air 01/30/17 09:20 68 16 158/80 97 Room Air 01/30/17 09:10 69 16 164/76 100 Oxymask 5 01/30/17 09:02 36.5 85 16 175/79 100 Oxymask 5 01/30/17 00:00 Room Air 01/29/17 23:07 36.5 82 20 143/80 (101) 95 Room Air Physical Exam General Appearance: WD/WN, no apparent distress Eyes: normal inspection, sclerae normal ENT: normal ENT inspection, pharynx normal Neck: supple, no adenopathy, trachea midline Respiratory/Chest: lungs clear, normal breath sounds, no respiratory distress Cardiovascular: regular rate, rhythm, no gallop, no murmur Abdomen: normal bowel sounds, non tender, soft, no organomegaly Extremities: non-tender, + pertinent finding ( Dressing intact right foot) Neurologic/Psychiatric: alert, oriented x 3 Skin: normal color, warm/dry, no rash Lymphatic: no adenopathy Laboratory Results Last 24 Hours Test 01/29/17 23:51 01/30/17 06:00 01/30/17 06:50 01/30/17 06:59 Bedside Glucose 339 mg/dl 363 mg/dl 348 mg/dl Sodium Level 132 mmol/L Potassium Level 3.9 mmol/L Chloride Level 97 mmol/L Carbon Dioxide Level 26 mmol/L Anion Gap 9.0 mmol/L Blood Urea Nitrogen 31 mg/dl Creatinine 1.70 mg/dl Est Creatinine Clear Calc Drug Dose 81.8 ml/min Estimated GFR () 52.2 Estimated GFR (Non- 45.0 BUN/Creatinine Ratio 18.1 Random Glucose 355 mg/dl Calcium Level 9.3 mg/dl Magnesium Level 2.3 mg/dl Beta-Hydroxybutyric Acid 3.25 mg/dL Test 01/30/17 07:29 01/30/17 09:07 01/30/17 09:27 01/30/17 09:41 Bedside Glucose 336 mg/dl 336 mg/dl 339 mg/dl 312 mg/dl Test 01/30/17 11:00 01/30/17 16:00 01/30/17 18:32 01/30/17 19:33 Bedside Glucose 330 mg/dl 457 mg/dl 507 mg/dl 429 mg/dl Assessment and Plan 51-year-old male with diabetes and neuropathy now presents with infected right great toe diabetic ulcer with cellulitis involving the foot and distal right great toe osteomyelitis. Cultures with E. coli and Strep. patient now status post partial amputation, would continue present antibiotics for now, await operative cultures. Will follow.
[2017-01-30] MEDS: METOPROLOL SUCC 25MG EXT REL TAB PO SCH (21:14)
[2017-01-30] MEDS: INSULIN ASPART 100 UNITS/ML 3 ML PEN SC SCH (21:21)
[2017-01-30] MEDS ORDERED: VANCOMYCIN TROUGH ONE (22:30)
[2017-01-31] VITALS (7 sets, daily range): BP systolic 137–154; BP diastolic 71–82; PULSE 71–77; TEMP 36.4–36.7; O2SAT 94–99
[2017-01-31] MEDS: INSULIN REGULAR 250 UNITS in SODIUM CHLORIDE 0.9% 250ML 250 ML IV SCH ×12 (00:06→11:20)
[2017-01-31] MEDS: TRAMADOL HCL 50 MG TAB PO PRN (02:08)
[2017-01-31 06:10] LABS: HEMATOCRIT 40.1 % (42-52); MEAN CELL VOLUME 85.3 fL (80-100); MEAN CORPUSCULAR HEMOGLOBIN 29.1 pg (25-34); MEAN CORPUSCULAR HGB CONC 34.2 g/dl (32-36); MEAN PLATELET VOLUME 9.2 fL (7.4-10.4); PLATELET COUNT 346 K/uL (130-400); WHITE BLOOD COUNT 11.45 K/uL (4.8-10.8)
[2017-01-31] MEDS: LEVOTHYROXINE 100 MCG TAB PO SCH (06:29)
[2017-01-31 06:53] LABS: CALCIUM 10.1 mg/dl (8.5-10.1); CREATININE 1.6 mg/dl (0.60-1.40); POTASSIUM 3.4 mmol/L (3.5-5.1)
[2017-01-31] MEDS: DEXTROSE 50% 50 ML SYR IV PRN (06:58)
[2017-01-31] MEDS: POTASSIUM CHLORIDE 20 MEQ TABCR PO SCH (08:06)
[2017-01-31] MEDS: LOSARTAN POTASSIUM 25 MG TAB PO SCH (08:06)
[2017-01-31] MEDS: PANTOprazole SOD 40 MG TAB PO SCH (08:06)
[2017-01-31] MEDS: BUMETANIDE 1 MG TAB PO SCH ×2 (08:07→21:13)
[2017-01-31] MEDS: AMIODARONE 200 MG TAB PO SCH (08:07)
[2017-01-31] MEDS: ASPIRIN 81 MG ECTAB PO SCH (08:07)
[2017-01-31] MEDS: SPIRONOLACTONE 25 MG TAB PO SCH (08:07)
[2017-01-31] MEDS: FLUTICASONE PROPIONATE NA SPR 16 GM BTL NAE SCH (08:07)
[2017-01-31] MEDS: INSULIN ASPART 100 UNITS/ML 3 ML PEN SC SCH ×4 (08:56→21:20)
--- NOTE | 2017-01-31 10:08 | Orthopedic Progress Note ---
Orthopedic Progress Note Date of Service Jan 31, 2017. Subjective Post OP Day: 1 Reports: feeling well Objective dressing C/D/I, toes mobile Date Time Temp Pulse Resp B/P (MAP) Pulse Ox O2 Delivery O2 Flow Rate FiO2 01/31/17 08:06 36.6 71 18 145/81 (102) 96 Room Air 01/31/17 08:00 96 Room Air 01/31/17 00:24 36.7 75 20 137/71 (93) 99 Room Air 01/31/17 00:00 94 Nasal Cannula 4.0 BiPAP 01/30/17 16:00 94 Room Air 01/30/17 15:12 36.6 67 16 147/72 (97) 96 Room Air 01/30/17 12:07 36.2 71 16 139/72 (94) 95 Room Air 01/30/17 11:06 36.1 67 16 169/74 (105) 96 Room Air 01/30/17 10:35 36.4 69 16 167/72 (103) 94 Room Air 01/30/17 10:15 96 Room Air 4.0 Laboratory Results 24 Hours: Test 01/31/17 05:41 Hematocrit 40.1 % Hemoglobin 13.7 g/dL Assessment & Plan Assessment: 51 yo male stable POD #1 s/p I&D, partial amp right great toe Plan: R great toe diabetic ulceration with Cellulitis and Osteomyelitis - Wound culture of food grew e.coli and group B beta strep 01/20 , and hx of pseudomonas in past. - wound culture 01/27 with + E. coli and GPCs prelim report - vanc and cefepime day #5. - ID on board - appreciate recs - likely will need [facility]itentiary abx and therefore need PICC placement - Follows with [facility] for wound care as an outpatient.
[2017-01-31] MEDS: CEFTRIAXONE SOD INJ 1 GM in DEXTROSE 5% ADD-VANTAGE 50ML 50 ML IV SCH (10:20)
--- NOTE | 2017-01-31 10:53 | Hospitalist Progress Note ---
Hospitalist Progress Note Date of Service Jan 31, 2017. (Susan Whitaker PA-C) Subjective Pt evaluation today including: conversation w/ patient, physical exam, chart review, lab review, review of studies Pain: Minimal R great toe PO Intake: Good Voiding: no voiding problems The patient was seen and examined this morning. Pt reports doing ok today. His pain is well controlled for the most part. He is not able to sleep well due to the hospital bed. Pt was placed on an insulin gtt yesterday for tighter glucose control, and insulin pump turned off. Pt reports normal basal rate is 0.675 U/hr from 12am-2:30 pm and then 1.65 U/hr from 2:30pm - midnight. His mood is relatively stable, and does not necessarily feel a large difference since being on wellbutrin, but dosage was just increased yesterday. Constitutional: No fever, No chills, No sweats Eyes: No redness, No diplopia ENT: No nasal symptoms, No trouble swallowing Respiratory: No cough, No shortness of breath Cardiovascular: + edema (BLE, improving), No chest pain, No orthopnea Abdomen: No pain, No nausea, No vomiting, No diarrhea, No constipation Musculoskeletal: + joint pain (R great toe pain), + swelling, No muscle pain Male : No dysuria Neurologic: No weakness, No numbness/tingling Psychiatric: + depression symptoms (unsure if improving) Endo: No fatigue Skin: No rash, No itch (Susan Whitaker PA-C) Objective Vital Signs Date Time Temp Pulse Resp B/P (MAP) Pulse Ox O2 Delivery O2 Flow Rate FiO2 01/31/17 08:06 36.6 71 18 145/81 (102) 96 Room Air 01/31/17 08:00 96 Room Air 01/31/17 00:24 36.7 75 20 137/71 (93) 99 Room Air 01/31/17 00:00 94 Nasal Cannula 4.0 BiPAP 01/30/17 16:00 94 Room Air 01/30/17 15:12 36.6 67 16 147/72 (97) 96 Room Air 01/30/17 12:07 36.2 71 16 139/72 (94) 95 Room Air 01/30/17 11:06 36.1 67 16 169/74 (105) 96 Room Air (Susan Whitaker PA-C) Physical Exam Notes: General Appearance: WD/WN, NAD, + obese (morbid) Eyes: PERRL, EOMI ENT: hearing grossly normal, pharynx normal Neck: supple, no JVD Respiratory/Chest: lungs clear, no respiratory distress, no accessory muscle use, + pertinent finding (+scar over upper L chest wall s/p defibrillator placement) Cardiovascular: regular rate, rhythm Abdomen: normal bowel sounds, non tender, soft Extremities: + pedal edema, + pertinent finding (+ chronic venous stasis changes. + fluid blister formation on RLE improving, erythema reducing, no warmth, R foot wrapped in NEEL bandage, c/d/i.. +Open lesion on lateral L metatarsal with +drainage. + erythema extending up the ankle to distal 1/3 of the RLE. LLE is edematous but no erythema.) Neurologic/Psychiatric: no motor/sensory deficits, alert, oriented x 3 Skin: normal color, warm/dry (Susan Whitaker PA-C) Laboratory Results Last 24 Hours Test 01/30/17 11:00 01/30/17 16:00 01/30/17 18:32 01/30/17 19:33 Bedside Glucose 330 mg/dl 457 mg/dl 507 mg/dl 429 mg/dl Test 01/30/17 20:30 01/30/17 21:31 01/30/17 22:41 01/30/17 23:41 Bedside Glucose 392 mg/dl 365 mg/dl 371 mg/dl 332 mg/dl Test 01/31/17 00:41 01/31/17 01:51 01/31/17 02:50 01/31/17 03:44 Bedside Glucose 315 mg/dl 278 mg/dl 211 mg/dl 168 mg/dl Test 01/31/17 04:43 01/31/17 05:18 01/31/17 05:41 01/31/17 06:42 Bedside Glucose 114 mg/dl 115 mg/dl 75 mg/dl White Blood Count 11.45 K/uL Red Blood Count 4.70 M/uL Hemoglobin 13.7 g/dL Hematocrit 40.1 % Mean Corpuscular Volume 85.3 fL Mean Corpuscular Hemoglobin 29.1 pg Mean Corpuscular Hemoglobin Concent 34.2 g/dl RDW Standard Deviation 46.0 fL RDW Coefficient of Variation 14.8 % Platelet Count 346 K/uL Mean Platelet Volume 9.2 fL Sodium Level 136 mmol/L Potassium Level 3.4 mmol/L Chloride Level 98 mmol/L Carbon Dioxide Level 28 mmol/L Anion Gap 10.0 mmol/L Blood Urea Nitrogen 30 mg/dl Creatinine 1.60 mg/dl Est Creatinine Clear Calc Drug Dose 87.0 ml/min Estimated GFR () 56.2 Estimated GFR (Non- 48.5 BUN/Creatinine Ratio 19.0 Random Glucose 99 mg/dl Calcium Level 10.1 mg/dl Test 01/31/17 07:04 01/31/17 07:16 01/31/17 07:32 01/31/17 07:48 Bedside Glucose 185 mg/dl 152 mg/dl 131 mg/dl 127 mg/dl Test 01/31/17 07:59 01/31/17 08:17 01/31/17 08:33 01/31/17 08:46 Bedside Glucose 140 mg/dl 143 mg/dl 151 mg/dl 175 mg/dl Test 01/31/17 09:02 01/31/17 09:17 01/31/17 09:31 01/31/17 09:46 Bedside Glucose 168 mg/dl 176 mg/dl 179 mg/dl 177 mg/dl Test 01/31/17 10:03 01/31/17 10:18 Bedside Glucose 180 mg/dl 189 mg/dl (Susan Whitaker, PAClaraC) Assessment and Plan 51 yo M with PMHx of with diabetes and neuropathy now presents with infected right great toe diabetic ulcer with cellulitis involving the foot. R great toe diabetic ulceration with Cellulitis and Osteomyelitis - wound culture 01/27 with + E. coli and Group B beta Strep - CT with contrast - shows limited osteo in the 1st distal phalanx. No involvement of the interphalangeal joint. no abscess. - POD # 2 distal phalaynx dissection, I&D. - vanc and cefepime day #6. - ID on board - appreciate recs - determine needs for abx pending intraop procedure - Follows with [facility] for wound care as an outpatient. DM II - Insulin pump turned off overnight and required an insulin gtt, resume pump now : basal rate is 0.675 U/hr from 12am-2:30 pm and then 1.65 U/hr from 2:30pm - midnight - follow with ISS and accuchecks. - Metformin 1000 mg BID - held 01/27 dose with contrast from CT foot - now resumed - Hgb A1C = 9.1 Chronic systolic CHF Recent ablation and cardiac disease Vtach - Pt with recent addition of amiodarone to his regimen. - Continue aspirin 81 mg daily, amiodarone 200 mg daily, Bumex 1 mg PO BID, metolazone 5 mg every other day, and spironolactone 25 mg daily - Potassium replacement increased to 40 meq daily standing order - Last ECHO completed in our system was from 2010 with moderate to mild reduction of LVEF, and likely patent foramen ovale. Consider repeat ECHO. - Received records from recent stay at [facility]. Hypothyroidism - Continue Synthroid 100 mcg daily Vit D Deficiency - Continue Vit D 50,000 U once weekly. GERD - Continue omeprazole 20 mg daily prn Allergic Rhinitis - Continue fluticasone, Dulera 200/5 mcg 2 puffs BID Depressive symptoms - Pt struggling with recent of one sister from pancreatic cancer and another sister who is currently diagnosed with pancreatic cancer. He recently spent 1 month visiting her. He is not on any antidepressants and does not currently see a counselor. He denies need for services at this time. I have encouraged him to talk with other family and friends, and continue good emotional support. - Started wellbutrin- now increased to 100 mg BID on 01/30- Low side effect profile for sexual dysfunction. Another reasonable choice for the patient would be cymbalta with chronic pain and diabetic neuropathy, or zoloft. DVT ppx: lovenox subq CODE STATUS: FULL CODE Disposition: From home, Abx regimen per ID (Susan Whitaker, TREVOR) PA Physician Supervision Note: I interviewed and examined the patient. Discussed with Susan Whitaker PAC and agree with findings and plan as documented in the note. Any exceptions or clarifications are listed here: None Patient with diabetic foot infection status post surgical debridement has polymicrobial infection documented by intraoperative culture waiting final determination by infectious disease for duration and choice of antibiotics along with choice of Route Vital signs are stable His glucose is much better controlled after having a night of insulin drip he' ll return to insulin pump and sliding scale his leg remained wrapped His heart is regular with a systolic murmur his lungs are clear with good air movement Diabetic foot infection will continue Vanco and cefepime awaiting further instructions from infectious disease and wound care directions for more thorough Documented By: Imer Lee (Imer Lee M.D.)
[2017-01-31] MEDS ORDERED: INSULIN REGULAR PUMP SCH (11:30)
[2017-01-31] MEDS ORDERED: HUMULIN R U SC PRN ×2 (12:00→12:15)
[2017-01-31] MEDS: [UNRECOGNIZED DRUG - OTHER] SCH ×3 (12:33→21:05)
[2017-01-31] MEDS: ENOXAPARIN 40 MG/0.4 ML SYR SQ SCH (13:55)
[2017-01-31] MEDS: METOPROLOL SUCC 25MG EXT REL TAB PO SCH (21:13)
[2017-02-01] MEDS: TRAMADOL HCL 50 MG TAB PO PRN ×2 (00:58→23:51)
[2017-02-01] MEDS: LEVOTHYROXINE 100 MCG TAB PO SCH (06:27)
[2017-02-01] MEDS: INSULIN ASPART 100 UNITS/ML 3 ML PEN SC SCH ×4 (06:30→20:36)
[2017-02-01] MEDS: [UNRECOGNIZED DRUG - OTHER] SCH ×4 (06:30→20:24)
[2017-02-01] MEDS: LOSARTAN POTASSIUM 25 MG TAB PO SCH (08:27)
[2017-02-01] MEDS: FLUTICASONE PROPIONATE NA SPR 16 GM BTL NAE SCH (08:27)
[2017-02-01] MEDS: PANTOprazole SOD 40 MG TAB PO SCH (08:27)
[2017-02-01] MEDS: ASPIRIN 81 MG ECTAB PO SCH (08:27)
[2017-02-01] MEDS: AMIODARONE 200 MG TAB PO SCH (08:28)
[2017-02-01] MEDS: SPIRONOLACTONE 25 MG TAB PO SCH (08:28)
[2017-02-01 08:29] VITALS: BP 115/61; PULSE 67; TEMP 36.6; O2SAT 97
[2017-02-01] MEDS: BUMETANIDE 1 MG TAB PO SCH ×2 (08:29→20:30)
[2017-02-01] MEDS: POTASSIUM CHLORIDE 20 MEQ TABCR PO SCH (08:29)
--- NOTE | 2017-02-01 09:37 | Orthopedic Progress Note ---
Orthopedic Progress Note Date of Service Feb 01, 2017. Subjective Post OP Day: 2 Reports: feeling well Objective incision C/D/I (Dressing changed, no drainage, minimal erythema) Date Time Temp Pulse Resp B/P (MAP) Pulse Ox O2 Delivery O2 Flow Rate FiO2 02/01/17 08:29 36.6 67 17 115/61 (79) 97 Room Air 02/01/17 00:00 Room Air 01/31/17 22:57 36.5 72 18 154/82 (106) 96 Room Air 01/31/17 16:16 36.4 77 17 143/80 (101) 94 Room Air 01/31/17 16:00 94 Room Air Assessment & Plan Assessment: 51 yo male stable POD #1 s/p I&D, partial amp right great toe Plan: R great toe diabetic ulceration with Cellulitis and Osteomyelitis - Wound culture of food grew e.coli and group B beta strep 01/20 , and hx of pseudomonas in past. - wound culture 01/27 with + E. coli and GPCs prelim report - cefepime day #5. - ID on board - appreciate recs - likely will need [facility] abx and therefore need PICC placement - Follows with [facility] for wound care as an outpatient.
[2017-02-01] MEDS: CEFTRIAXONE SOD INJ 1 GM in DEXTROSE 5% ADD-VANTAGE 50ML 50 ML IV SCH (10:48)
--- NOTE | 2017-02-01 11:32 | Hospitalist Progress Note ---
Hospitalist Progress Note Date of Service Feb 01, 2017. (Susan Whitaker PA-C) Subjective Pt evaluation today including: conversation w/ patient, physical exam, chart review, lab review, review of studies Pain: minimal R great toe PO Intake: Good Voiding: no voiding problems The patient was seen and examined this morning. Pt reports doing well overall. His pain in the toe s/p amputation is well controlled. His glucose dropped low down into 40s. He has been administering basal boluses per pharmacy since switching off insulin gtt and is back to his regular pump. Pt denies any other acute complaints. Additional Comments: Constitutional: No fever, No chills, No sweats Respiratory: No cough, No shortness of breath Cardiovascular: + edema (BLE, improving), No chest pain, No orthopnea Abdomen: No pain, No nausea, No vomiting, No diarrhea, No constipation Musculoskeletal: + joint pain (R great toe pain), + swelling, No muscle pain Neurologic: No weakness, No numbness/tingling Skin: No rash, No itch (Susan Whitaker PA-C) Objective Vital Signs Date Time Temp Pulse Resp B/P (MAP) Pulse Ox O2 Delivery O2 Flow Rate FiO2 02/01/17 08:29 36.6 67 17 115/61 (79) 97 Room Air 02/01/17 08:00 Room Air 02/01/17 00:00 Room Air 01/31/17 22:57 36.5 72 18 154/82 (106) 96 Room Air 01/31/17 16:16 36.4 77 17 143/80 (101) 94 Room Air 01/31/17 16:00 94 Room Air (Susan Whitaker PA-C) Physical Exam Notes: General Appearance: WD/WN, NAD, + obese (morbid) Eyes: PERRL, EOMI ENT: hearing grossly normal, pharynx normal Neck: supple, no JVD Respiratory/Chest: lungs clear, no respiratory distress, no accessory muscle use, + pertinent finding (+scar over upper L chest wall s/p defibrillator placement) Cardiovascular: regular rate, rhythm Abdomen: normal bowel sounds, non tender, soft Extremities: + pedal edema, + pertinent finding (+ chronic venous stasis changes. + fluid blister formation on RLE improving, erythema reducing, no warmth, R forefoot wrapped in kerlix, c/d/i.. +Open lesion on lateral L metatarsal with +drainage. + erythema extending up the ankle to distal 1/3 of the RLE. LLE is edematous but no erythema.) Neurologic/Psychiatric: no motor/sensory deficits, alert, oriented x 3 Skin: normal color, warm/dry (Susan Whitaker PA-C) Laboratory Results Last 24 Hours Test 01/31/17 12:28 01/31/17 16:59 01/31/17 20:15 02/01/17 01:00 Bedside Glucose 148 mg/dl 238 mg/dl 293 mg/dl 269 mg/dl Test 02/01/17 06:41 02/01/17 07:01 02/01/17 07:48 02/01/17 10:41 Bedside Glucose 41 mg/dl 70 mg/dl 117 mg/dl 149 mg/dl (Susan Whitaker PA-C) Assessment and Plan 51 yo M with PMHx of with diabetes and neuropathy now presents with infected right great toe diabetic ulcer with cellulitis involving the foot. R great toe diabetic ulceration with Cellulitis and Osteomyelitis - wound culture 01/27 with + E. coli and Group B beta Strep - CT with contrast - shows limited osteo in the 1st distal phalanx. No involvement of the interphalangeal joint. no abscess. - s/p distal phalaynx dissection, I&D on 01/[address] Bates-- Spoke with Erich Oates PA-C - will order a hard soled shoe for pressure offloading, F/u within 10-14 days. - vanc and cefepime x 5 days, switched to ceftriaxone on 01/30 - Spoke with Dr. Plata - will plan to continue 1 more day of IV abx, they plan to re-evaluate tomorrow and make sure the wound looks like its improving. He is hoping to switch to oral antibiotics. - Follows with [facility] for wound care as an outpatient - continue DM II - Insulin pump: basal rate is 0.675 U/hr from 12am-2:30 pm and then 1.65 U/hr from 2:30pm - midnight - follow with ISS and accuchecks. - Overnight had low glucose down to 41 - pt is now on boluses with meals again - Metformin 1000 mg BID - held 01/27 dose with contrast from CT foot - now resumed - Hgb A1C = 9.1 Chronic systolic CHF Recent ablation and cardiac disease Vtach - Pt with recent addition of amiodarone to his regimen. - Continue aspirin 81 mg daily, amiodarone 200 mg daily, Bumex 1 mg PO BID, metolazone 5 mg every other day, and spironolactone 25 mg daily - Potassium replacement increased to 40 meq daily standing order - Last ECHO completed in our system was from 2010 with moderate to mild reduction of LVEF, and likely patent foramen ovale. Consider repeat ECHO. - Received records from recent stay at [facility]. Hypothyroidism - Continue Synthroid 100 mcg daily Vit D Deficiency - Continue Vit D 50,000 U once weekly. GERD - Continue omeprazole 20 mg daily prn Allergic Rhinitis - Continue fluticasone, Dulera 200/5 mcg 2 puffs BID Depressive symptoms - Pt struggling with recent of one sister from pancreatic cancer and another sister who is currently diagnosed with pancreatic cancer. He recently spent 1 month visiting her. He is not on any antidepressants and does not currently see a counselor. He denies need for services at this time. I have encouraged him to talk with other family and friends, and continue good emotional support. - Started wellbutrin- now increased to 100 mg BID on 01/30- Low side effect profile for sexual dysfunction. Another reasonable choice for the patient would be cymbalta with chronic pain and diabetic neuropathy, or zoloft. DVT ppx: lovenox subq CODE STATUS: FULL CODE Disposition: From home, Abx regimen per ID, possible d/c to home tomorrow. (Susan Whitaker, ARCADIO-C) ARCADIO Physician Supervision Note: I interviewed and examined the patient. Discussed with Susan Whitaker PAC and agree with findings and plan as documented in the note. Any exceptions or clarifications are listed here: None Patient continues to do well postoperatively has no fevers or chills, has had low blood glucose after restarting his insulin pump, continue to engage with his personal silk opener adjust this vital signs are stable Physical exam shows regular heart and lungs is wrapped inspection face is healing well Polymicrobial diabetic foot infection infectious diseases determining duration and choice of antibiotics to manage his glucose of medical problems expecting discharge early this week with wound care follow-up Documented By: Imer Lee (Imer Lee M.D.)
[2017-02-01] MEDS: METOLAZONE 5 MG TAB PO SCH (14:14)
[2017-02-01] MEDS: ENOXAPARIN 40 MG/0.4 ML SYR SQ SCH (14:14)
[2017-02-01 15:42] VITALS: BP 141/77; PULSE 70; TEMP 36.5; O2SAT 96
[2017-02-01 16:00] VITALS: O2SAT 94
[2017-02-01] MEDS: METOPROLOL SUCC 25MG EXT REL TAB PO SCH (20:30)
[2017-02-01 23:32] VITALS: BP 127/74; PULSE 73; TEMP 36.4; O2SAT 95
[2017-02-02] VITALS: O2SAT 94
[2017-02-02 07:15] LABS: MEAN CELL VOLUME 85.7 fL (80-100); MEAN CORPUSCULAR HEMOGLOBIN 29.2 pg (25-34); MEAN CORPUSCULAR HGB CONC 34.1 g/dl (32-36); MEAN PLATELET VOLUME 9.6 fL (7.4-10.4); PLATELET COUNT 352 K/uL (130-400); RED BLOOD COUNT 4.55 M/uL (4.7-6.1)
[2017-02-02] MEDS: LEVOTHYROXINE 100 MCG TAB PO SCH (07:30)
[2017-02-02 07:33] LABS: BUN/CREATININE RATIO 23.8 (10-20); CALCIUM 9.2 mg/dl (8.5-10.1); POTASSIUM 3.4 mmol/L (3.5-5.1)
[2017-02-02] MEDS: FLUTICASONE PROPIONATE NA SPR 16 GM BTL NAE SCH (08:08)
[2017-02-02] MEDS: ASPIRIN 81 MG ECTAB PO SCH (08:09)
[2017-02-02] MEDS: LOSARTAN POTASSIUM 25 MG TAB PO SCH (08:09)
[2017-02-02] MEDS: PANTOprazole SOD 40 MG TAB PO SCH (08:09)
[2017-02-02] MEDS: SPIRONOLACTONE 25 MG TAB PO SCH (08:09)
[2017-02-02] MEDS: POTASSIUM CHLORIDE 20 MEQ TABCR PO SCH (08:10)
[2017-02-02] MEDS: AMIODARONE 200 MG TAB PO SCH (08:10)
[2017-02-02] MEDS: BUMETANIDE 1 MG TAB PO SCH (08:10)
[2017-02-02 08:16] VITALS: BP 145/74; PULSE 69; TEMP 36.7; O2SAT 97
[2017-02-02] MEDS: [UNRECOGNIZED DRUG - OTHER] SCH ×2 (08:30→11:00)
[2017-02-02] MEDS: INSULIN ASPART 100 UNITS/ML 3 ML PEN SC SCH ×2 (08:30→11:00)
--- NOTE | 2017-02-02 08:49 | Anesthesiology Progress Note ---
Anesthesia Post Op Note Date & Time Feb 02, 2017 at 08:49 Vital Signs Pain Intensity: 0.0 Vital Signs Past 12 Hours Date Time Temp Pulse Resp B/P (MAP) Pulse Ox O2 Delivery O2 Flow Rate FiO2 02/02/17 08:16 36.7 69 20 145/74 (97) 97 Room Air 02/02/17 08:00 Room Air 02/02/17 00:00 94 Room Air 02/01/17 23:32 36.4 73 20 127/74 (91) 95 Room Air Notes Mental Status: alert / awake / arousable, participated in evaluation Pt Amnestic to Procedure: Yes Nausea / Vomiting: adequately controlled Pain: adequately controlled Airway Patency, RR, SpO2: stable & adequate BP & HR: stable & adequate Hydration State: stable & adequate Anesthetic Complications: no major complications apparent
--- NOTE | 2017-02-02 09:38 | Orthopedic Progress Note ---
Orthopedic Progress Note Date of Service Feb 02, 2017. Subjective Post OP Day: 3 Reports: feeling well, Denies: complaints Objective dressing removed. wound benign. no purulent drainage. continues with cellulitis at ankle and heading proximal. Date Time Temp Pulse Resp B/P (MAP) Pulse Ox O2 Delivery O2 Flow Rate FiO2 02/02/17 08:16 36.7 69 20 145/74 (97) 97 Room Air 02/02/17 08:00 Room Air 02/02/17 00:00 94 Room Air 02/01/17 23:32 36.4 73 20 127/74 (91) 95 Room Air 02/01/17 16:00 94 Room Air 02/01/17 15:42 36.5 70 19 141/77 (98) 96 Laboratory Results 24 Hours: Test 02/02/17 06:44 Hematocrit 39.0 % Hemoglobin 13.3 g/dL Additional Notes: RUN DATE: 01/31/17 [facility] LAB PAGE 1 RUN TIME: 1533 Specimen Inquiry PATIENT: STANISLAW ALCANTAR LOC: Calli # : [id number] AGE/SX: 51/M ROOM: E422 REG : 01/26/[address]: Imer Lee M : 1965 BED: 1 DIS : STATUS: ADM IN TLOC: SPEC #: [id number] JUSTIN: 01/27/17 STATUS: COMP REQ #: [id number] RECD: 01/27/[address]: Susan Whitaker PA-C SOURCE: TISSUE ENTR: 01/27/[address]: Elfego Plata MD SPDESC: 1ST Imer Lee M.D. Kopinski, Laura, D.O. Sensiba, Paul R., M.D. Siuta, Jonathan R., MD ORDERED: DEP WND CUL/SMR COMMENTS: Specimen Comment R great toe plantar surface ulceration Has Specimen Been Obtained/Collected? Y Procedure Result Verified Site GRAM STAIN Final 01/28/17-0758 RESULT RARE WBCs SEEN FEW GRAM POSITIVE COCCI DEEP WOUND CULTURE Final 01/31/17-153 Organism 1 ESCHERICHIA COLI QUANITY MANY SENS SENSITIVITY TO FOLLOW +MIXWOUND PLUS MODERATE COUNTS OF PROBABLE SKIN TOÑO Organism 2 GROUP B BETA STREP QUANITY FEW SENS SENSITIVITY TO FOLLOW Organism 3 PEPTOSTREPTOCOCCUS KIMO QUANITY MODERATE SENS NO SENSITIVITY TO FOLLOW Organism 4 ANAEROBIC GRAM NEGATIVE BACILL QUANITY MANY SENS NON-VIABLE FOR FURTHER IDENTIFICATION CONTINUED ON NEXT PAGE RUN DATE: 01/31/17 [facility] LAB PAGE 2 RUN TIME: 1533 Specimen Inquiry SPEC: [id number] PATIENT: ORTIZSTANISLAW Hector BOURNE [id number] ( Continued) Procedure Result Verified Site DEEP WOUND CULTURE Final (continued) 01/31/17-1533 E COLI GBBS M.I.C. RX M.I.C. RX --------- ------ --------- ------ TRIMET/SULFA > R AMPICILLIN <=8 S 0.12 S AMPICILLIN/SUL <=8/4 S CEFAZOLIN <=8 S CEFOTAXIME <=2 S <=0.25 S CEFTRIAXONE <=1 S <=0.25 S CEFEPIME <=4 S <=0.25 S CEFUROXIME <=4 S CHLORAMPHENICOL 2 S IMIPENEM <=1 S VANCOMYCIN 0.5 S PENICILLIN 0.06 S GENTAMICIN <=4 S TOBRAMYCIN <=4 S ERYTHROMYCIN <=0.06 S AMIKACIN <=16 S CIPROFLOXACIN >2 R LEVOFLOXACIN >4 R CLINDAMYCIN <=0.06 S ERTAPENEM <=1 S PIP/TAZO <=16 S AZITHROMYCIN <=0.25 S 1. ESCHERICHIA COLI Target Route Dose RX AB Cost M.I.C. IQ ------ ----- ------ -- ------ -------- - ------ TRIMET/SULFA R > AMPICILLIN S <=8 AMPICILLIN/SUL S <=8/4 CEFAZOLIN S <=8 CEFOTAXIME S <=2 CEFTRIAXONE S <=1 CEFEPIME S <=4 CEFUROXIME S <=4 IMIPENEM S <=1 GENTAMICIN S <=4 TOBRAMYCIN S <=4 AMIKACIN S <=16 CIPROFLOXACIN R >2 LEVOFLOXACIN R >4 ERTAPENEM S <=1 PIP/TAZO S <=16 CONTINUED ON NEXT PAGE RUN DATE: 01/31/17 [facility] LAB PAGE 3 RUN TIME: 1532 Specimen Inquiry SPEC: [id number] PATIENT: STANISLAW ALCANTAR JR [id number] ( Continued) Procedure Result Verified Site DEEP WOUND CULTURE Final (continued) 01/31/17-1533 2. GROUP B BETA STREP Target Route Dose RX AB Cost M.I.C. IQ ------ ----- ------ -- ------ -------- - ------ AMPICILLIN S 0.12 CEFOTAXIME S <=0.25 CEFTRIAXONE S <=0.25 CEFEPIME S <=0.25 CHLORAMPHENICOL S 2 VANCOMYCIN S 0.5 PENICILLIN S 0.06 ERYTHROMYCIN S <=0.06 CLINDAMYCIN S <=0.06 AZITHROMYCIN S <=0.25 S = SENSITIVE I = INTERMEDIATE R = RESISTANT Assessment & Plan Assessment: 51 yo male stable POD #3 s/p I&D, partial amp right great toe Plan: Antibx as per Med/ID teams Continue daily dressing changes. Ortho will sign off for now. Please call with any questions.
--- NOTE | 2017-02-02 09:41 | Consultant Recommendations ---
Engineering Technology Instructor Recommendations Date of Service Feb 02, 2017. Engineering Technology Instructor Recommendations Daily dressing changes with 4x4's. Kerlix, Do not apply creams or antibx ointments on wound keep wound clean and dry. You may shower if you keep a waterproof covering over the foot. Do not soak the foot. No tub baths. F/U with Dr Bates in 10-14 days from the day of surgery. Call for appt. [phone]
[2017-02-02] MEDS: CEFTRIAXONE SOD INJ 1 GM in DEXTROSE 5% ADD-VANTAGE 50ML 50 ML IV SCH (09:49)
[2017-02-02] MEDS: ENOXAPARIN 40 MG/0.4 ML SYR SQ SCH (14:01)
[2017-02-02] MEDS ORDERED: AMOX875T PO (14:58)
--- NOTE | 2017-02-02 15:00 | Discharge Instructions ---
Discharge Instructions Date of Service Feb 02, 2017. Admission Reason for Admission: Diabetic Foot Infection Discharge Discharge Diagnosis / Problem: diabetic foot infection, s/p debridement of gangrene toe Discharge Goals Goal(s): Diagnostic testing, Therapeutic intervention Activity Recommendations Activity Limitations: resume your previous activity . Current Hospital Diet Patient's current hospital diet: Diabetes Type 2 Diet Discharge Diet Recommended Diet: Diabetes Type 2 Diet Procedures Procedures Performed: 1. Partial Amputation Right Great Toe. 2. Right Great Toe Irrigation and Debridement DM Ulcer. Pending Studies Studies pending at discharge: no Laboratory Results Hemoglobin A1c Test 01/27/17 05:53 Range/Units Estimated Average Glucose 214 mg/dl Hemoglobin A1c 9.1 H 4.5-5.6 % Medical Emergencies . Who to Call and When: Medical Emergencies: If at any time you feel your situation is an emergency, please call 911 immediately. . Non-Emergent Contact Non-Emergency issues call your: Primary Care Provider Call Non-Emergent contact if: temperature is above 101, your pain is unusual for you . . "Provider Documentation" section prepared by Imer Lee. . Administrative And Program Specialist Recommendations Administrative And Program Specialist Recommendations: Daily dressing changes with 4x4's. Kerlix, Do not apply creams or antibx ointments on wound keep wound clean and dry. You may shower if you keep a waterproof covering over the foot. Do not soak the foot. No tub baths. F/U with Dr Bates in 10-14 days from the day of surgery. Call for appt. [phone] VTE Core Measure Inpt VTE Proph given/why not?: Unfractionated heparin SQ
--- NOTE | 2017-02-02 15:02 | Discharge Summary ---
Discharge Summary Date of Service Feb 02, 2017. Discharge Summary Admission Date: Jan 26, 2017 at 11:44 Discharge Date: Feb 02, 2017 Discharge Disposition: Home Principal Diagnosis: diabetic foot infection, s/p debridement of great toe Immunizations: Have You Had Influenza Vaccine: No History of Tetanus Vaccine?: Yes History of Pneumococcal: Yes History of Hepatitis B Vaccine: Unknown Procedures: surgical debridement of gr toe Infectious disease consult Medication Reconciliation New Medications: Amoxicillin & Pot Clavulanate (Augmentin 875-125 mg) 1 Tab Tab 875 MG PO BID, #28 TAB Bupropion HCl (Bupropion HCl) 100 Mg Tab 100 MG PO BID, #60 TAB 6 Refills Potassium Chloride (Klor-Con M20) 20 Meq Tabcr 40 MEQ PO BID, #120 DOSE 6 Refills Continued Medications: Amiodarone HCl (Amiodarone HCl) 200 Mg Tab 200 MG PO DAILY Aspirin (Aspirin Tab-Chewable *) 81 Mg Chew 81 MG PO QAM, 0 Refills Bumetanide (Bumetanide) 1 Mg Tab 1 MG PO BID Ergocalciferol (Vitamin D 55065 Unit) 50,000 Unit Cap 50865 UNITS PO Fluticasone Propionate (Nasal) (Flonase Allergy Relief) 50 Mcg/Act Spr 2 SPRAYS DAIN BID Insulin Regular (Human) (Humulin R U-500 (Concentr) 500 Unit/Ml Inj SC UD INSULIN PUMP Levothyroxine Sodium (Levothyroxine Sodium) 100 Mcg Tab 1 TAB PO QAM, TAB Losartan Potassium (Losartan Potassium) 25 Mg Tab 25 MG PO DAILY Metformin HCL (Glucophage *) 1,000 Mg Tab 1000 MG PO BID, 0 Refills Metolazone (Metolazone) 5 Mg Tab 5 MG PO every other day Metoprolol Succ (Toprol Xl) (Toprol-Xl) 25 Mg Tabcr 25 MG PO QPM, #30 TAB Mometasone Furoate-Formoterol (Dulera 200/5 Mcg) 1 Aer Aer 2 PUFFS INH BID for 30 Days, #13 GM 5 Refills Nitroglycerin (Nitrostat) 0.4 Mg Sub 0.4 MG UT PRN, BTL Nutritional Supplements (Glucerna Meal Replacement) 1 Bar Bar 1 UNIT PO prn Omeprazole (Prilosec) 20 Mg Capcr 20 MG PO DAILY PRN for PRN, CAP Spironolactone (Aldactone) 25 Mg Tab 25 MG PO QAM, TAB Tramadol (Ultram) 50 Mg Tab 50 MG PO Q8H PRN for Pain, TAB Discontinued Medications: Amoxicillin (Amoxil) 500 Mg Cap 1 CAP PO TID for 10 Days, #30 CAP Hyoscyamine Sulfate (Levsin) 0.125 Mg Tab 0.125 MG PO TID PRN for PRN, TAB Loratadine (Claritin) 10 Mg Tab 10 MG PO DAILY PRN for PRN, TAB Potassium Ext Rel (Klor-Con) 20 Meq Tabcr 20 MEQ PO QAM, TAB Discharge Exam Review of Systems: Constitutional: No fever, No chills Respiratory: No cough, No sputum Cardiovascular: No chest pain, No orthopnea Integumentary: + problem reported (wound is healing well, will follow at wound care center) Physical Exam: General Appearance: + mild distress, + obese Neck: supple, no JVD Respiratory/Chest: chest non-tender, lungs clear Cardiovascular: regular rate, rhythm, no murmur Abdomen / GI: normal bowel sounds, non tender, soft Hospital Course 51 yo M with PMHx of with diabetes and neuropathy now presents with infected right great toe diabetic ulcer with cellulitis involving the foot, had surgical debridement and will complete two additional weeks of po antibiotic with wound care oversight as outpt R great toe diabetic ulceration with Cellulitis and Osteomyelitis - wound culture 01/27 with + E. coli and Group B beta Strep - CT with contrast - shows limited osteo in the 1st distal phalanx. - s/p distal phalaynx dissection, I&D on 01/[address] Bates-- - initially vanc and cefepime x 5 days, switched to ceftriaxone on 01/30 - Spoke with Dr. Plata - will plan to use augmentin for two weeks - Follows with [facility] for wound care as an outpatient DM II - Insulin pump: plus Metformin 1000 mg BID Chronic systolic CHF, stable, aspirin 81 mg daily, amiodarone 200 mg daily, Bumex 1 mg PO BID, metolazone 5 mg every other day, and spironolactone 25 mg daily Hypothyroidism Synthroid 100 mcg daily Vit D Deficiency Vit D 50,000 U once weekly. GERD omeprazole 20 mg daily prn Allergic Rhinitis fluticasone, Dulera 200/5 mcg 2 puffs BID Depressive symptoms wellbutrin- 100 mg BID CODE STATUS: FULL CODE Total Time Spent: Greater than 30 minutes This includes examination of the patient, discharge planning, medication reconciliation, and communication with other providers. Discharge Instructions Please refer to the electronic Patient Visit Report (Discharge Instructions) for additional information.
[2017-02-02 15:06] VITALS: BP 143/85; PULSE 67; TEMP 36.7; O2SAT 97
[2017-02-02] MEDS ORDERED: WLL100 PO (15:06)
[2017-02-02] MEDS ORDERED: MCRK20 PO (15:06)
--- NOTE | 2017-02-02 15:09 | Infectious Disease Progress Nt ---
Progress Note Date of Service Feb 02, 2017. Subjective Pt evaluation today including: conversation w/ patient, physical exam, chart review, lab review, review of studies, conversation w/ energy consultant, review of inpatient medication list Offers no new complaints today. Pain controlled. Remains afebrile. Cultures with E coli, peptostreptococcus, strep, and Gram-negative anaerobe. All Other Systems: Reviewed and Negative Medications Current Inpatient Medications Medications (Trade) Dose Ordered Sig/Pankaj Route Start Time Stop Time Status Last Admin Dose Admin Enoxaparin Sodium (Lovenox Inj) 40 mg Q24H SQ 01/26/17 14:00 02/25/17 13:59 02/02/17 14:01 40 MG Acetaminophen (Tylenol Tab) 650 mg Q4H PRN PO 01/26/17 12:00 02/25/17 11:59 Magnesium Hydroxide (Milk Of Magnesia Susp) 30 ml Q6H PRN PO 01/26/17 12:00 02/25/17 11:59 Polyethylene (Miralax Powder Packet) 17 gm DAILY PRN PO 01/26/17 12:00 02/25/17 11:59 Ondansetron HCl (Zofran Inj) 4 mg Q6H PRN IV 01/26/17 12:00 02/25/17 11:59 Aspirin (Ecotrin Tab) 81 mg QAM PO 01/27/17 08:00 02/26/17 07:59 02/02/17 08:09 81 MG Fluticasone Propionate (Flonase Nasal [place]) 2 sprays DAILY DAIN 01/27/17 08:00 02/26/17 07:59 02/02/17 08:08 2 SPRAYS Levothyroxine Sodium (Synthroid Tab) 100 mcg DAILYBB PO 01/27/17 06:30 02/26/17 06:29 02/02/17 07:30 100 MCG Metoprolol Succinate (Toprol Xl Tab) 25 mg QPM PO 01/26/17 21:00 02/25/17 20:59 02/01/17 20:30 25 MG Spironolactone (Aldactone Tab) 25 mg QAM PO 01/27/17 08:00 02/26/17 07:59 02/02/17 08:09 25 MG Tramadol HCl (Ultram Tab) 50 mg Q8H PRN PO 01/26/17 12:00 02/25/17 11:59 02/01/17 23:51 50 MG Miscellaneous Information (Order Awaiting Action) 1 ea QS N/A 01/26/17 16:00 02/25/17 15:59 Pantoprazole Sodium (Protonix Tab) 40 mg QAM PO 01/27/17 08:00 02/26/17 07:59 02/02/17 08:09 40 MG Glucose (Glucose 40% Gel) UD PRN PO 01/26/17 12:45 02/25/17 12:44 Glucose (Glucose Chew Tab) 1 tabs UD PRN PO 01/26/17 12:45 02/25/17 12:44 01/28/17 06:17 1 TABS Glucagon (Glucagon Inj) 1 mg UD PRN SQ 01/26/17 12:45 02/25/17 12:44 Dextrose (Dextrose 50% 50ML Syringe) 50 ml UD PRN IV 01/26/17 12:45 02/25/17 12:44 01/31/17 06:58 50 ML Amiodarone HCl (Cordarone Tab) 200 mg DAILY PO 01/27/17 08:00 02/26/17 07:59 02/02/17 08:10 200 MG Bumetanide (Bumex Tab) 1 mg BID PO 01/26/17 20:00 02/25/17 19:59 02/02/17 08:10 1 MG Losartan Potassium (coZAAR TAB) 25 mg DAILY PO 01/27/17 08:00 02/26/17 07:59 02/02/17 08:09 25 MG Metolazone (Zaroxolyn Tab) 5 mg Q48H PO 01/26/17 14:15 02/25/17 14:14 02/01/17 14:14 5 MG Nitroglycerin (Nitrostat Tab) 0.4 mg PRN UT 01/26/17 14:15 02/25/17 14:14 Bupropion HCl (Wellbutrin Tab) 100 mg BID PO 01/30/17 08:00 02/26/17 19:59 02/02/17 08:10 100 MG Zolpidem Tartrate (Ambien Tab) 5 mg HSZ PRN PO 01/30/17 00:15 03/01/17 00:14 01/30/17 00:23 5 MG Ceftriaxone Sodium 1 gm/ Dextrose 50 ml @ 100 mls/hr Q24H IV 01/30/17 10:00 02/09/17 09:59 02/02/17 09:49 100 MLS/HR Insulin Aspart (novoLOG ASPART) SLIDING SCALE ACHS SC 01/30/17 21:00 03/01/17 20:59 02/02/17 11:00 6 UNITS Insulin Human Regular (Insulin Humulin Regular U-500 Pump) 1 ea ACHS N/A 01/31/17 12:00 03/02/17 11:59 02/02/17 11:00 1 EA Insulin Human Regular (Humulin-R U-500) PRN PRN SC 01/31/17 12:15 03/02/17 11:59 Potassium Chloride (Klor-Con Tab) 40 meq BID PO 02/02/17 20:00 03/04/17 19:59 Objective Vital Signs Date Time Temp Pulse Resp B/P (MAP) Pulse Ox O2 Delivery O2 Flow Rate FiO2 02/02/17 15:06 36.7 67 18 143/85 (104) 97 Room Air 02/02/17 08:16 36.7 69 20 145/74 (97) 97 Room Air 02/02/17 08:00 Room Air 02/02/17 00:00 94 Room Air 02/01/17 23:32 36.4 73 20 127/74 (91) 95 Room Air 02/01/17 16:00 94 Room Air 02/01/17 15:42 36.5 70 19 141/77 (98) 96 Physical Exam General Appearance: WD/WN, no apparent distress Eyes: normal inspection, EOMI, sclerae normal ENT: normal ENT inspection, pharynx normal Neck: supple, no adenopathy, trachea midline Respiratory/Chest: chest non-tender, lungs clear, normal breath sounds, no respiratory distress Cardiovascular: regular rate, rhythm, no gallop (Do), no murmur Abdomen: normal bowel sounds, non tender, soft, no organomegaly Extremities: non-tender, no calf tenderness Neurologic/Psychiatric: alert, oriented x 3 Skin: normal color, no rash, + pertinent finding (Dressing intact right foot) Lymphatic: no adenopathy Laboratory Results RUN DATE: 01/31/17 [facility] PAGE 1 RUN TIME: 1533 Specimen Inquiry PATIENT: STANISLAW ALCANTAR JR LOC: Calli U # : [id number] AGE/SX: 51/M ROOM: E422 REG : 01/26/[address]: Imer Lee M : 1965 BED: 1 DIS : STATUS: ADM IN TLOC: SPEC #: [id number] JUSTIN: 01/27/17 STATUS: COMP REQ #: [id number] RECD: 01/27/[address]: Susan Whitaker PA-C SOURCE: TISSUE ENTR: 01/27/[address] [facility] DR: Elfego Plata MD SPDESC: 1ST Imer Lee M.D. Kopinski, Laura, D.O. Sensiba, Paul R., M.D. Siuta, Jonathan R., MD ORDERED: DEP WND CUL/SMR COMMENTS: Specimen Comment R great toe plantar surface ulceration Has Specimen Been Obtained/Collected? Y Procedure Result Verified Site GRAM STAIN Final 01/28/17-0758 RESULT RARE WBCs SEEN FEW GRAM POSITIVE COCCI DEEP WOUND CULTURE Final 01/31/17-1533 Organism 1 ESCHERICHIA COLI QUANITY MANY SENS SENSITIVITY TO FOLLOW +MIXWOUND PLUS MODERATE COUNTS OF PROBABLE SKIN TOÑO Organism 2 GROUP B BETA STREP QUANITY FEW SENS SENSITIVITY TO FOLLOW Organism 3 PEPTOSTREPTOCOCCUS KIMO QUANITY MODERATE SENS NO SENSITIVITY TO FOLLOW Organism 4 ANAEROBIC GRAM NEGATIVE BACILL QUANITY MANY SENS NON-VIABLE FOR FURTHER IDENTIFICATION CONTINUED ON NEXT PAGE RUN DATE: 01/31/17 [facility] PAGE 2 RUN TIME: 1533 Specimen Inquiry SPEC: [id number] PATIENT: STANISLAW ALCANTAR JR [id number] ( Continued) Procedure Result Verified Site DEEP WOUND CULTURE Final (continued) 01/31/17-1533 E COLI GBBS M.I.C. RX M.I.C. RX --------- ------ --------- ------ TRIMET/SULFA >2/38 R AMPICILLIN <=8 S 0.12 S AMPICILLIN/SUL <=8/4 S CEFAZOLIN <=8 S CEFOTAXIME <=2 S <=0.25 S CEFTRIAXONE <=1 S <=0.25 S CEFEPIME <=4 S <=0.25 S CEFUROXIME <=4 S CHLORAMPHENICOL 2 S IMIPENEM <=1 S VANCOMYCIN 0.5 S PENICILLIN 0.06 S GENTAMICIN <=4 S TOBRAMYCIN <=4 S ERYTHROMYCIN <=0.06 S AMIKACIN <=16 S CIPROFLOXACIN >2 R LEVOFLOXACIN >4 R CLINDAMYCIN <=0.06 S ERTAPENEM <=1 S PIP/TAZO <=16 S AZITHROMYCIN <=0.25 S 1. ESCHERICHIA COLI Target Route Dose RX AB Cost M.I.C. IQ ------ ----- ------ -- ------ -------- - ------ TRIMET/SULFA R >2/38 AMPICILLIN S <=8 AMPICILLIN/SUL S <=8/4 CEFAZOLIN S <=8 CEFOTAXIME S <=2 CEFTRIAXONE S <=1 CEFEPIME S <=4 CEFUROXIME S <=4 IMIPENEM S <=1 GENTAMICIN S <=4 TOBRAMYCIN S <=4 AMIKACIN S <=16 CIPROFLOXACIN R >2 LEVOFLOXACIN R >4 ERTAPENEM S <=1 PIP/TAZO S <=16 CONTINUED ON NEXT PAGE RUN DATE: 01/31/17 [facility] PAGE 3 RUN TIME: 1533 Specimen Inquiry SPEC: [id number] PATIENT: STANISLAW ALCANTAR JR [id number] ( Continued) Procedure Result Verified Site DEEP WOUND CULTURE Final (continued) 01/31/17-1533 2. GROUP B BETA STREP Target Route Dose RX AB Cost M.I.C. IQ ------ ----- ------ -- ------ -------- - ------ AMPICILLIN S 0.12 CEFOTAXIME S <=0.25 CEFTRIAXONE S <=0.25 CEFEPIME S <=0.25 CHLORAMPHENICOL S 2 VANCOMYCIN S 0.5 PENICILLIN S 0.06 ERYTHROMYCIN S <=0.06 CLINDAMYCIN S <=0.06 AZITHROMYCIN S <=0.25 S = SENSITIVE I = INTERMEDIATE R = RESISTANT Last 24 Hours Test 02/01/17 16:59 02/01/17 20:01 02/02/17 06:44 02/02/17 07:36 Bedside Glucose 143 mg/dl 205 mg/dl 183 mg/dl White Blood Count 10.80 K/uL Red Blood Count 4.55 M/uL Hemoglobin 13.3 g/dL Hematocrit 39.0 % Mean Corpuscular Volume 85.7 fL Mean Corpuscular Hemoglobin 29.2 pg Mean Corpuscular Hemoglobin Concent 34.1 g/dl RDW Standard Deviation 46.6 fL RDW Coefficient of Variation 15.0 % Platelet Count 352 K/uL Mean Platelet Volume 9.6 fL Sodium Level 136 mmol/L Potassium Level 3.4 mmol/L Chloride Level 99 mmol/L Carbon Dioxide Level 26 mmol/L Anion Gap 11.0 mmol/L Blood Urea Nitrogen 48 mg/dl Creatinine 2.00 mg/dl Est Creatinine Clear Calc Drug Dose 69.6 ml/min Estimated GFR () 42.9 Estimated GFR (Non- 37.0 BUN/Creatinine Ratio 23.8 Random Glucose 209 mg/dl Calcium Level 9.2 mg/dl Test 02/02/17 11:18 Bedside Glucose 197 mg/dl Assessment and Plan 51-year-old male with diabetes and neuropathy now presents with infected right great toe diabetic ulcer with cellulitis involving the foot and distal right great toe osteomyelitis. Cultures with E. coli, peptostreptococcus, Gram- negative anaerobes, and Strep. patient now status post partial amputation. Recommend transition to oral antibiotic therapy with Augmentin 875 b.i.d. for 2 weeks. Will [facility]-up [facility].
[2017-02-02 16:39] VITALS: BP 143/85; PULSE 67; TEMP 36.7; O2SAT 97
[2017-02-02] MEDS ORDERED: POTASSIUM CHLORIDE 20 MEQ TABCR PO SCH ×2 (20:00)
== END 2017-02-02 17:45 | disposition home or self-care (01) | DRG 617 ==
LOC: C.4E 11:44
PROVIDERS: ADMIT Internal Medicine; ATTEND Internal Medicine
PROC: 0Y6P0Z3 Detachment at Right 1st Toe, Low, Open Approach (ICD-10-PCS; principal; 2017-01-30 09:00)
DX: E11.69 Type 2 diabetes mellitus with other specified complication (principal); M86.9 Osteomyelitis, unspecified; Z79.4 Long term (current) use of insulin; N18.3 Chronic kidney disease, stage 3 (moderate); G47.30 Sleep apnea, unspecified; E78.5 Hyperlipidemia, unspecified; I12.9 Hypertensive chronic kidney disease with stage 1 through stage 4 chronic kidney disease, or unspecified chronic kidney disease; E03.9 Hypothyroidism, unspecified; Z96.41 Presence of insulin pump (external) (internal); E55.9 Vitamin D deficiency, unspecified; Z80.8 Family history of malignant neoplasm of other organs or systems; Z83.3 Family history of diabetes mellitus

== ENCOUNTER 2017-03-25 12:13 | Observation (INO) | payer BC, OTHER ==
[~2017-03-25] VITALS: Ht 182.9 cm; Wt 170.0 kg
[~2017-03-25 12:13] MED LIST changes: -AMOX500C3 PO; +ATOR80TA PO; +BMX1 PO; -CHOL100010 PO; -CLOB-65 EXT; -CLR10 PO; +CRD200 PO; +CZR25 PO; +DSY50 PO; +ERGO500011 PO; -GLC500 PO; -HYOS1TAB PO; +KFL500 PO; +LACTCHW3 PO; +MCRK20 PO; -METO25TA3 PO; +METO50TA7 PO; -POTA20TA16 PO; +WLL100 PO; +ZRX5 PO
--- NOTE | 2017-03-25 13:14 | EMERGENCY ROOM VISIT NOTE ---
History Report prepared by Priscilla: Sully Mack Under the Supervision of: Dr. Lukas Boo M.D. First contact with patient: 12:42 Chief Complaint: OTHER COMPLAINT Stated Complaint: TIRED, CHEST History of Present Illness The patient is a 51 year old male who presents to the Emergency Room with complaints of persistent chest pain that began about one week ago. The patient rates his discomfort as a 4/10 in severity. The patient also states that he has been having a cough and chest tightness, noting that the chest tightness tends to radiate to his abdomen. He notes that his chest pain worsens when he walks, noting his episodes only last about 15 minutes. The patient states that he has had a heart attack in the past . 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 He notes that he has been recently seen in the emergency room for several infection in his toes. The patient states that he is prescribed Nitroglycerin, noting the last time he took it was about a week and a half ago. He notes that he has swelling and discoloration in his legs, but that is not abnormal for him. Source of History: patient Onset: one week ago Position: chest Symptom Intensity: 4/10 Timing: other (persistent ) Modifying Factors (Worsening): other (walking ) Associated Symptoms: + cough Review of Systems See HPI for pertinent positives & negatives. A total of 10 systems reviewed and were otherwise negative. Past Medical & Surgical Medical Problems: (1) Acute renal failure syndrome (2) Cardiac defibrillator in situ (3) Chest pain (4) CKD (chronic kidney disease) stage 3, GFR 30-59 ml/min (5) Dehydration (6) Diabetes mellitus type 2 (7) Diabetic foot infection (8) Diabetic foot ulcer (9) Diabetic peripheral neuropathy associated with type 2 diabetes mellitus (10) Edema (11) Essential hypertension (12) History of diabetic ulcer of foot (13) Loss of sensation (14) NINA on CPAP (15) Osteomyelitis of ankle or foot (16) Partial traumatic amputation of right great toe, sequela (17) Right second toe ulcer (18) Status post partial amputation of foot (19) Systolic heart failure (20) Testicular hypofunction Family History No pertinent family history stated. Social History Smoking Status: Never Smoker Alcohol Use: none Drug Use: none Marital Status: Occupation Status: disabled Current/Historical Medications Scheduled Amiodarone HCl (Amiodarone HCl), 200 MG PO DAILY Aspirin (Aspirin), 1 TAB PO DAILY Atorvastatin Calcium (Lipitor), 80 MG PO DAILY Bumetanide (Bumetanide), 1 MG PO BID Bupropion HCl (Bupropion HCl), 100 MG PO BID Fluticasone Propionate (Nasal) (Flonase Allergy Relief), 2 SPRAYS DAIN BID Gabapentin (Gabapentin), 300 MG PO TID Insulin Regular (Human) (Humulin R U-500 (Concentr), SC UD Levothyroxine Sodium (Levothyroxine Sodium), 1 TAB PO QAM Losartan Potassium (Losartan Potassium), 25 MG PO DAILY Magnesium Oxide (Mg Supplement (Magnesium Oxide), 400 MG PO DAILY Metolazone (Metolazone), 5 MG PO Thursday/Thu/Thursday Metoprolol Succ (Toprol Xl) (Toprol-Xl), 1 TAB PO DAILY Mometasone Furoate-Formoterol (Dulera 200/5 Mcg), 2 PUFFS INH BID Nitroglycerin (Nitrostat), 0.4 MG UT PRN Nutritional Supplements (Glucerna Meal Replacement), 1 UNIT PO prn Potassium Chloride (Klor-Con M20), 40 MEQ PO BID Spironolactone (Aldactone), 25 MG PO QAM Scheduled PRN Omeprazole (Prilosec), 20 MG PO DAILY PRN for PRN Tramadol (Ultram), 50 MG PO Q6H PRN for Pain Trazodone Hcl (Desyrel), 1 TAB PO HS PRN for insomnia Allergies Coded Allergies: Benzonatate (Verified Adverse Reaction, Unknown, choking, gagging, ) Physical Exam Vital Signs Date Time Temp Pulse Resp B/P (MAP) Pulse Ox O2 Delivery O2 Flow Rate FiO2 03/25/17 13:39 72 18 170/83 97 Room Air 03/25/17 13:17 73 03/25/17 13:17 97 Room Air 03/25/17 12:26 36.8 73 20 146/82 97 Room Air Physical Exam GENERAL: Patient is in no acute distress. HEENT: No acute trauma, normocephalic atraumatic, mucous membranes moist, no nasal congestion, no scleral icterus. NECK: No stridor, no adenopathy, no meningismus, trachea is midline. LUNGS: Clear to auscultation bilaterally, no wheeze, no rhonchi, breath sounds equal. HEART: Without murmurs gallops or rubs, regular rate and rhythm. ABDOMEN: Soft, nontender, bowel sounds positive, no hernias, no peritonitis. EXTREMITIES: Bilateral pedal edema with chronic skin change, no active cellulitis, no acute trauma NEUROLOGIC: Oriented x 3, no acute motor or sensory deficits, no focal weakness. SKIN: No rash, no jaundice, no diaphoresis. Medical Decision & Procedures ER Provider Diagnostic Interpretation: Radiology results as stated below per my review and radiologist interpretation: CHEST ONE VIEW PORTABLE CLINICAL HISTORY: 51 years-old Male presenting with CHEST PAIN. TECHNIQUE: Portable upright AP view of the chest was obtained. COMPARISON: 02/25/2017. FINDINGS: Left subclavian implanted cardiac defibrillator with lead to the right ventricular apex. Mild enlargement of the cardiac silhouette, unchanged. Mild prominence of pulmonary vasculature. Lungs and pleural spaces clear. Osseous structures normal. Upper abdomen normal. IMPRESSION: 1. Mild cardiomegaly and pulmonary vascular prominence could suggest volume overload. This is not significantly changed from the prior exam. No benedict pulmonary edema. Electronically signed by: Don Lombardo M.D. 03/25/2017 1:17 PM Laboratory Results 03/25/17 13:15 03/25/17 13:15 Test 03/25/17 13:15 03/25/17 14:03 Red Blood Count 4.53 M/uL (4.7-6.1) Mean Corpuscular Volume 90.1 fL (80-100) Mean Corpuscular Hemoglobin 29.6 pg (25-34) Mean Corpuscular Hemoglobin Concent 32.8 g/dl (32-36) RDW Standard Deviation 49.8 fL (36.4-46.3) RDW Coefficient of Variation 15.2 % (11.5-14.5) Mean Platelet Volume 9.6 fL (7.4-10.4) Anion Gap 6.0 mmol/L (3-11) Est Creatinine Clear Calc Drug Dose 83.8 ml/min Estimated GFR () 53.3 Estimated GFR (Non- 46.0 BUN/Creatinine Ratio 18.8 (10-20) Calcium Level 8.9 mg/dl (8.5-10.1) Total Bilirubin 0.4 mg/dl (0.2-1) Aspartate Amino Transf (AST/SGOT) 21 U/L (15-37) Alanine Aminotransferase (ALT/SGPT) 28 U/L (12-78) Alkaline Phosphatase 93 U/L (45-117) Total Protein 8.2 gm/dl (6.4-8.2) Albumin 3.2 gm/dl (3.4-5.0) Globulin 5.0 gm/dl (2.5-4.0) Albumin/Globulin Ratio 0.6 (0.9-2) Lipase 218 U/L (73-393) Chemistry Specimen Hemolysis Prothrombin Time 11.3 SECONDS (9.0-12.0) Prothromb Time International Ratio 1.1 (0.9-1.1) Activated Partial Thromboplast Time 25.3 SECONDS (21.0-31.0) Partial Thromboplastin Ratio 1.0 Laboratory results reviewed by me. Medications Administered Medications (Trade) Dose Ordered Sig/Pankaj Route Start Time Stop Time Status Last Admin Dose Admin Aspirin (Aspirin Chew) 324 mg NOW STAT PO 03/25/17 14:25 03/25/17 14:26 DC 03/25/17 14:25 324 MG ECG Indication: chest pain Rate (beats per minute): 73 Rhythm: normal sinus Findings: no ectopy, other (old septal infact, old lateral infarct) Comparison ECG Date: Jan 28, 2017 Change: no significant change ED Course 1247: The patient was evaluated in room C6. A complete history and physical exam was performed. 1425: Ordered Aspirin 324mg PO. 1435: Upon reexamination the patient is resting comfortably. I discussed results and treatment plan with the patient. He verbalizes agreement and understanding. I spoke with Dr. Lee of the [facility] . We discussed the patient's results and findings. The patient will be evaluated by Dr. Lee for further management. Medical Decision The patient is a 51 year old male who presents to the ED with complaints of chest pain. Differential diagnoses considered include Angina, Reflux, VT, Bronchitis, Pneumonia, URI, Anemia. There is no leukocytosis or concerning anemia. No significant electrolyte abnormality. There is some mild renal insufficiency/dehydration noted. No hepatitis or pancreatitis. No coagulopathy. EKG shows a normal sinus rhythm with some chronic change, no acute ischemia. No change compared to previous EKGs. Cardiac enzyme testing times one is not consistent with acute cardiac injury. Chest film does not show pneumonia or concerning CHF. There was no pneumothorax. The patient was pain-free during the time of my evaluation. He was given some oral aspirin for cardioprotective purposes. I discussed the case with cardiology. Admission/observation was advised given his past history and his description of chest pain. I spoke to the patient and case management. The on-call hospitalist was consulted. Further cardiac workup is warranted. Medication Reconcilliation Current Medication List: was personally reviewed by me Blood Pressure Screening Patient's blood pressure: Elevated blood pressure Blood pressure disposition: Referred to PCP Consults Time Called: 1302 Consulting Physician: Dr. Maya, [employer] Returned Call: 1300 I discussed the patients case with Dr. Maya who suggested the patient have a cardiac work up in the hospital. Additional Consults: Time Called: 1432 Consulted Physician: Dr. Lee, [facility] Returned Call: [phone] Additional Comments: Discussed the patient's case. The patient will be evaluated for further management. Impression Primary Impression: Precordial chest pain Scribe Attestation The scribe's documentation has been prepared under my direction and personally reviewed by me in its entirety. I confirm that the note above accurately reflects all work, treatment, procedures, and medical decision making performed by me. Departure Information Dispostion Being Evaluated By Hospitalist Referrals Sherry Maya D.O. (PCP) Patient Instructions My [facility]
--- NOTE | 2017-03-25 13:18 | DIAGNOSTIC IMAGING REPORT ---
CHEST ONE VIEW PORTABLE CLINICAL HISTORY: 51 years-old Male presenting with CHEST PAIN. TECHNIQUE: Portable upright AP view of the chest was obtained. COMPARISON: 02/25/2017. FINDINGS: Left subclavian implanted cardiac defibrillator with lead to the right ventricular apex. Mild enlargement of the cardiac silhouette, unchanged. Mild prominence of pulmonary vasculature. Lungs and pleural spaces clear. Osseous structures normal. Upper abdomen normal. IMPRESSION: 1. Mild cardiomegaly and pulmonary vascular prominence could suggest volume overload. This is not significantly changed from the prior exam. No benedict pulmonary edema. Electronically signed by: Don Lombardo M.D. 03/25/2017 1:17 PM Dictated Date/Time: 03/25/2017 1:16 PM
[2017-03-25 13:27] LABS: HEMATOCRIT 40.8 % (42-52); MEAN CELL VOLUME 90.1 fL (80-100); MEAN CORPUSCULAR HEMOGLOBIN 29.6 pg (25-34); MEAN CORPUSCULAR HGB CONC 32.8 g/dl (32-36); MEAN PLATELET VOLUME 9.6 fL (7.4-10.4); PLATELET COUNT 197 K/uL (130-400); RED BLOOD COUNT 4.53 M/uL (4.7-6.1); WHITE BLOOD COUNT 8.25 K/uL (4.8-10.8)
[2017-03-25 13:51] LABS: ALB/GLOB RATIO 0.6 (0.9-2); BUN/CREATININE RATIO 18.8 (10-20); CALCIUM 8.9 mg/dl (8.5-10.1); CKMB/CK RATIO 1.7 (0-3.0); CREATININE 1.67 mg/dl (0.60-1.40); POTASSIUM 3.7 mmol/L (3.5-5.1)
[2017-03-25 14:24] LABS: INR 1.1 (0.9-1.1); PROTHROMBIN TIME (PATIENT) 11.3 SECONDS (9.0-12.0)
[2017-03-25] MEDS ORDERED: ASPIRIN 81 MG CHEW PO STA (14:25)
[2017-03-25] MEDS ORDERED: IV FLUIDS COMPLETED PRN (15:00)
[2017-03-25] MEDS ORDERED: POLYETHYLENE (MIRALAX) 17 GM PACK PO PRN (15:00)
[2017-03-25] MEDS ORDERED: NITROGLYCERIN 0.4 MG SL PER TAB CHARGE SL PRN (15:00)
[2017-03-25] MEDS ORDERED: ONDANSETRON INJ 2 MG/ML 2 ML VIAL IV PRN (15:00)
[2017-03-25] MEDS ORDERED: ACETAMINOPHEN 325 MG TAB PO PRN (15:00)
[2017-03-25] MEDS ORDERED: PHARMACY GLYCEMIC MGMT CONSULT PRN (15:10)
[2017-03-25 16:00] VITALS: BP 146/75; PULSE 73; TEMP 36.8; O2SAT 96; Ht 182.9 cm; Wt 170.0 kg
[2017-03-25] MEDS ORDERED: GLUCOSE 40% GEL 15 GM TUBE PO PRN (16:00)
[2017-03-25] MEDS ORDERED: HUMULIN R U SC PRN (16:00)
[2017-03-25] MEDS ORDERED: GLUCOSE 10 TABS/TUBE PO PRN (16:00)
[2017-03-25] MEDS ORDERED: DEXTROSE 50% 50 ML SYR IV PRN (16:00)
[2017-03-25] MEDS ORDERED: GLUCAGON FOR INJ 1 MG VIAL SQ PRN (16:00)
--- NOTE | 2017-03-25 16:04 | Pharmacy Progress Note ---
Glycemic Control Intl Consult Date of Service Mar 25, 2017. Scope Glycemic Pharmacist consulted by Dr Flores on 03/25/17 for glycemic control and to write orders per [facility] inpatient glycemic control protocol Objective Weight (Kilograms): 173.000 Accuchecks BSG (last 24hrs): Test 03/25/17 13:15 Random Glucose 158 mg/dl (70-99) Laboratory Data (last 24hrs) Test 03/25/17 13:15 Anion Gap 6.0 mmol/L BUN/Creatinine Ratio 18.8 Blood Urea Nitrogen 31 mg/dl Creatinine 1.67 mg/dl Potassium Level 3.7 mmol/L Sodium Level 136 mmol/L White Blood Count 8.25 K/uL HbA1c 8% on 01/20/17 (per [facility] outpatient records) Recent Pertinent Medications Outpatient Anti-diabetic Regimen: * U-500 Concentrated Regular insulin via continuous pump * Up to 200 units/day Assessment & Plan ASSESSMENT: * Pt is to manage BSGs with insulin pump per outpatient settings. * RN will have patient read and sign agreement CF [id number] Insulin Pump Therapy Patient Agreement. * RN will provide and explain form NS-824 Flowsheet for Patient * Patient will document their insulin dose given on NS-824 which is kept at the bedside, available to caregivers upon request, and which becomes part of the permanent medical record. * If at any time the patients condition evidences that he/she is not able to manage the insulin pump (i.e. frequent hypo/hyperglycemia) Pharmacy will assume glycemic control by discontinuing the pump & managing with SQ basal bolus insulin regimen for the interim. PLAN FOR INPATIENT GLYCEMIC CONTROL: * Pt to manage BSGs with insulin pump per outpatient settings. * Family to bring in pump supplies for site changes {not stocked by pharmacy} * [facility] d/t with family/patient * Please note that the plan above was derived based on current level of insulin resistance and hospital stress. These recommendations are appropriate for inpatient admission only. Plan of care upon discharge will need to be reassessed to avoid potential outpatient hypo/hyperglycemia. Thank you.
[2017-03-25] MEDS: [UNRECOGNIZED DRUG - OTHER] SCH ×3 (16:15→20:58)
[2017-03-25] MEDS ORDERED: ASPI1TAB83 PO (16:47)
[2017-03-25] MEDS ORDERED: MAGN1TAB19 PO (16:47)
[2017-03-25] MEDS ORDERED: TRAZ-120 PO (16:47)
[2017-03-25] MEDS ORDERED: GABA1CAP4 PO (16:48)
[2017-03-25] MEDS ORDERED: TRAZODONE HCL 50 MG TAB PO PRN (17:00)
[2017-03-25] MEDS ORDERED: TRAMADOL HCL 50 MG TAB PO PRN (17:00)
--- NOTE | 2017-03-25 17:10 | History and Physical ---
History & Physical Date & Time of Service: Mar 25, 2017 at 16:42 Chief Complaint: Chest Pain Primary Care Physician: Sherry Maya D.O. History of Present Illness Source: patient, clinic records, hospital records 51 yo M with significant heart problems in the past including chronic systolic heart failure s/p ICD placement presents today with reports of chest tightness. He originally went to see his PCP for cold symptoms for the past week including a nonproductive cough, sneezing, and also reports of some chest tightness. He denies any associated symptoms related to the tightness including no diaphoresis, palpitations, nausea, vomiting or lightheadedness. He reports feeling like he has some gas under his sternal area, and feels like he needs to burp. As we continued to talk he then told me that the chest discomfort should not be described as a tightness actually, but couldn't find another way to describe it to me. He then stated that this is the same chest discomfort that he has chronically for years. Of note, he reported to the ER physician that he had 4/10 chest pain that was new and worse with ambulation. He denies any recent swelling in the legs, orthopnea, states he is compliant with his CPAP. He reports no worsening in his exercise tolerance but some increased dyspnea which he feels may be related to the congestion. He gives the example of being able to wall the mall two months ago and now, only now he would feel a little more short of breath. He was recently admitted for a toe amputation and just reportedly finished a two week course of Keflex last week. He also has some ulcerations between his toes on the R foot and on the sole of the L foot--all without evidence of superficial infection at this time. He denies any fevers,.chills, nausea, vomiting. He denies being prescribed anything new at his PCP's office for the URI earlier today and reports that he did take some OTC Blanche-seltzer Cold earlier this morning. He is asking me why he needs to come into the hospital as he reports feeling at his baseline. Per record review he was reportedly hospitalized in [place] for decompensated heart failure and his Torsemide was changed to Bumex and Zaroxolyn. He then became dehydrated and experienced 12 ICD shocks on 01/04/17 and was evaluated in the ED. He was found to have low Mg and low K. Amiodarone was started and he underwent a Lexiscan nuclear stress test which was negative for inducible ischemia. This information was all reported by the patient to his Operations Expert recently with no supporting records available on file to review. Since that discharge he returned to [place] and has been feeling well, although was recently hospitalized at [facility] for a RLQ osteomyelitis resulting in a partial amputation of his R great toe. At his recent Cardiology office visit, his Toprol was increased to 50mg PO daily, Lipitor was increased to 80mg PO daily and Magnesium supplements were started. Past Medical/Surgical History Medical Problems: (1) Acute renal failure syndrome Status: Resolved (2) Amputated great toe of right foot Status: Chronic (3) Asthma Status: Chronic (4) Cardiac defibrillator in situ Status: Chronic (5) Chest pain Status: Resolved (6) Dehydration Status: Resolved (7) Diabetes mellitus type 2 Status: Chronic (8) Diabetic foot ulcer Status: Chronic (9) Diabetic peripheral neuropathy associated with type 2 diabetes mellitus Status: Chronic (10) Essential hypertension Status: Chronic (11) H/O osteomyelitis Status: Chronic (12) HTN (hypertension) Status: Chronic (13) Hypothyroidism Status: Chronic (14) Ischemic cardiomyopathy Status: Chronic (15) NINA on CPAP Status: Chronic (16) Osteomyelitis of ankle or foot Status: Chronic (17) Partial traumatic amputation of right great toe, sequela Status: Chronic (18) Statin intolerance Status: Chronic (19) Systolic heart failure Status: Chronic (20) Testicular hypofunction Status: Chronic Surgical Problems: (1) S/P shoulder surgery Status: Chronic Family History FH: cancer FH: heart attack GRANDFATHER Social History Smoking Status: Never Smoker Smokeless Tobacco Use: No Alcohol Use: none Drug Use: none Marital Status: Housing status: lives with family Occupational Status: disabled Immunizations History of Influenza Vaccine: Yes Influenza Vaccine Date: Dec 10, 2016 History of Tetanus Vaccine?: Yes Tetanus Immunization Date: Dec 13, 2016 History of Pneumococcal: Yes Pneumococcal Date: Jan 04, 2017 History of Hepatitis B Vaccine: No Multi-Drug Resistant Organisms History of MDRO: No Allergies Coded Allergies: Benzonatate (Verified Adverse Reaction, Unknown, choking, gagging, ) Home Medications Scheduled Amiodarone HCl (Amiodarone HCl), 200 MG PO DAILY Aspirin (Aspirin), 1 TAB PO DAILY Atorvastatin Calcium (Lipitor), 80 MG PO DAILY Bumetanide (Bumetanide), 1 MG PO BID Bupropion HCl (Bupropion HCl), 100 MG PO BID Fluticasone Propionate (Nasal) (Flonase Allergy Relief), 2 SPRAYS DAIN BID Gabapentin (Gabapentin), 300 MG PO TID Insulin Regular (Human) (Humulin R U-500 (Concentr), SC UD Levothyroxine Sodium (Levothyroxine Sodium), 1 TAB PO QAM Losartan Potassium (Losartan Potassium), 25 MG PO DAILY Magnesium Oxide (Mg Supplement (Magnesium Oxide), 400 MG PO DAILY Metolazone (Metolazone), 5 MG PO Thursday/Thu/Thursday Metoprolol Succ (Toprol Xl) (Toprol-Xl), 1 TAB PO DAILY Mometasone Furoate-Formoterol (Dulera 200/5 Mcg), 2 PUFFS INH BID Nitroglycerin (Nitrostat), 0.4 MG UT PRN Nutritional Supplements (Glucerna Meal Replacement), 1 UNIT PO prn Potassium Chloride (Klor-Con M20), 40 MEQ PO BID Spironolactone (Aldactone), 25 MG PO QAM Scheduled PRN Omeprazole (Prilosec), 20 MG PO DAILY PRN for PRN Tramadol (Ultram), 50 MG PO Q6H PRN for Pain Trazodone Hcl (Desyrel), 1 TAB PO HS PRN for insomnia Review of Systems At least ten systems were reviewed and negative except as indicated in HPI above and some chronic blood per rectum from hemorrhoids. Physical Exam Vital Signs Date Time Temp Pulse Resp B/P (MAP) Pulse Ox O2 Delivery O2 Flow Rate FiO2 03/25/17 15:33 69 17 171/76 98 Room Air 03/25/17 14:38 73 20 131/81 98 Room Air 03/25/17 13:39 72 18 170/83 97 Room Air 03/25/17 13:17 73 03/25/17 13:17 97 Room Air 03/25/17 12:26 36.8 73 20 146/82 97 Room Air General Appearance: no apparent distress, + obese Head: normocephalic, atraumatic Eyes: normal inspection, PERRL, sclerae normal ENT: normal ENT inspection, hearing grossly normal, TMs normal, + pertinent finding (posterior pharyngeal cobblestoning with post-nasal drip visualized, no erythema or tonsillar enlargement, no exudates. Denies sinus TTP) Neck: supple, no adenopathy, no JVD, trachea midline Respiratory/Chest: chest non-tender, lungs clear, normal breath sounds, no respiratory distress, no accessory muscle use Cardiovascular: regular rate, rhythm, no edema, no gallop, no murmur Abdomen/GI: normal bowel sounds, non tender, soft Extremities/Musculoskelatal: + pertinent finding (L ulceration sole foot-Stage II, no surrounding erythema or drainage, approx 0.5-1cm. Partial amputation R great toe, healing well. ) Neurologic/Psych: process inspector II-XII nml as tested, no motor/sensory deficits, alert, normal mood/affect, oriented x 3 Skin: normal color, warm/dry, + pertinent finding (wounds as above. ) Diagnostics Laboratory Results 03/25/17 13:15 03/25/17 13:15 Test 03/25/17 13:15 03/25/17 14:03 Red Blood Count 4.53 M/uL (4.7-6.1) Mean Corpuscular Volume 90.1 fL (80-100) Mean Corpuscular Hemoglobin 29.6 pg (25-34) Mean Corpuscular Hemoglobin Concent 32.8 g/dl (32-36) RDW Standard Deviation 49.8 fL (36.4-46.3) RDW Coefficient of Variation 15.2 % (11.5-14.5) Mean Platelet Volume 9.6 fL (7.4-10.4) Anion Gap 6.0 mmol/L (3-11) Est Creatinine Clear Calc Drug Dose 83.8 ml/min Estimated GFR () 53.3 Estimated GFR (Non- 46.0 BUN/Creatinine Ratio 18.8 (10-20) Calcium Level 8.9 mg/dl (8.5-10.1) Total Bilirubin 0.4 mg/dl (0.2-1) Aspartate Amino Transf (AST/SGOT) 21 U/L (15-37) Alanine Aminotransferase (ALT/SGPT) 28 U/L (12-78) Alkaline Phosphatase 93 U/L (45-117) Total Creatine Kinase 143 U/L (39-308) Creatine Kinase MB 2.4 ng/ml (0.5-3.6) Creatine Kinase MB Ratio 1.7 (0-3.0) Troponin I 0.017 ng/ml (0-0.045) Total Protein 8.2 gm/dl (6.4-8.2) Albumin 3.2 gm/dl (3.4-5.0) Globulin 5.0 gm/dl (2.5-4.0) Albumin/Globulin Ratio 0.6 (0.9-2) Lipase 218 U/L (73-393) Chemistry Specimen Hemolysis Prothrombin Time 11.3 SECONDS (9.0-12.0) Prothromb Time International Ratio 1.1 (0.9-1.1) Activated Partial Thromboplast Time 25.3 SECONDS (21.0-31.0) Partial Thromboplastin Ratio 1.0 Results Past 24 Hours Test 03/25/17 13:15 03/25/17 14:03 Range/Units White Blood Count 8.25 4.8-10.8 K/uL Red Blood Count 4.53 4.7-6.1 M/uL Hemoglobin 13.4 14.0-18.0 g/dL Hematocrit 40.8 42-52 % Mean Corpuscular Volume 90.1 80-100 fL Mean Corpuscular Hemoglobin 29.6 25-34 pg Mean Corpuscular Hemoglobin Concent 32.8 32-36 g/dl RDW Standard Deviation 49.8 36.4-46.3 fL RDW Coefficient of Variation 15.2 11.5-14.5 % Platelet Count 197 130-400 K/uL Mean Platelet Volume 9.6 7.4-10.4 fL Sodium Level 136 136-145 mmol/L Potassium Level 3.7 3.5-5.1 mmol/L Chloride Level 100 98-107 mmol/L Carbon Dioxide Level 29 21-32 mmol/L Anion Gap 6.0 3-11 mmol/L Blood Urea Nitrogen 31 7-18 mg/dl Creatinine 1.67 0.60-1.40 mg/dl Est Creatinine Clear Calc Drug Dose 83.8 ml/min Estimated GFR () 53.3 Estimated GFR (Non- 46.0 BUN/Creatinine Ratio 18.8 10-20 Random Glucose 158 70-99 mg/dl Calcium Level 8.9 8.5-10.1 mg/dl Total Bilirubin 0.4 0.2-1 mg/dl Aspartate Amino Transf (AST/SGOT) 21 15-37 U/L Alanine Aminotransferase (ALT/SGPT) 28 12-78 U/L Alkaline Phosphatase 93 45-117 U/L Total Creatine Kinase 143 39-308 U/L Creatine Kinase MB 2.4 0.5-3.6 ng/ml Creatine Kinase MB Ratio 1.7 0-3.0 Troponin I 0.017 0-0.045 ng/ml Total Protein 8.2 6.4-8.2 gm/dl Albumin 3.2 3.4-5.0 gm/dl Globulin 5.0 2.5-4.0 gm/dl Albumin/Globulin Ratio 0.6 0.9-2 Lipase 218 73-393 U/L Chemistry Specimen Hemolysis Prothrombin Time 11.3 9.0-12.0 SECONDS Prothromb Time International Ratio 1.1 0.9-1.1 Activated Partial Thromboplast Time 25.3 21.0-31.0 SECONDS Partial Thromboplastin Ratio 1.0 Diagnostic Radiology CHEST ONE VIEW PORTABLE CLINICAL HISTORY: 51 years-old Male presenting with CHEST PAIN. TECHNIQUE: Portable upright AP view of the chest was obtained. COMPARISON: 02/25/2017. FINDINGS: Left subclavian implanted cardiac defibrillator with lead to the right ventricular apex. Mild enlargement of the cardiac silhouette, unchanged. Mild prominence of pulmonary vasculature. Lungs and pleural spaces clear. Osseous structures normal. Upper abdomen normal. IMPRESSION: 1. Mild cardiomegaly and pulmonary vascular prominence could suggest volume overload. This is not significantly changed from the prior exam. No benedict pulmonary edema. EKG SR 73 with q waves in anterior leads Impression Assessment and Plan 51 yo M with chronic systolic heart failure and h/o CAD presents with 1.5 weeks of chest tightness associated with some cold symptoms and shortness of breath. 1. Chest discomfort-history was somewhat confusing as he first said there was something acute going on, but later stated that the discomfort he felt was from chronic sternal pain that he has had his whole life. He was admitted to telemetry for observation and serial cardiac enzymes are being drawn to rule out ACS. ASA was given in the ER. Cards was consulted. Cont current medications. 2. Chronic systolic heart failure s/p ICD-pt appears euvolemic but does have some slight decrease in exercise tolerance along with some evidence of pulmonary edema on the CXR, so will treat him with IV Bumex at his normal PO dosing of 1mg BID for decompensated heart failure. Will cont other PO meds including Zaroxylyn. Pt will help nursing staff track accurate I/Os with a bedside urinal. Salt restriction. Daily weights. Re-evaluate in am. Apprec Cards recs. Of note there have been no ICD shocks and his pacemaker was recently interrogated. Will defer further need for reinterrogation to Cards. 3. URI-no evidence of bacterial infection. Symptoms appear mild at this time. Will medicate symptoms as the need arises. 4. HTN-controlled, cont home meds. 5. Dyslipidemia-cont Lipitor 80. Recent change with noted h/o statin intolerance. Defer management to Cards. 5. Right lower extremity osteomyelitis status post recent right great toe partial amputation at [facility]-no evidence of infection, healing well 6. DM II with chronic diabetic foot ulcerations-on insulin pump. Consulted pharmacist to assist with keeping patient on his pump while inpatient. Wound nurse to address wounds while inpatient. 7. Morbid obesity 8. Obstructive sleep apnea-CPAP 9. Chronic lower extremity lymphedema 10. CKD appears around baseline-monitor PRP in am and avoid nephrotoxic meds. Full Code DVT proph: Lovenox Dispo-telemetry Katharina Flores DO [facility] Hospitalist Level of Care Telemetry Resuscitation Status FULL RESUSCITATION VTE Prophylaxis VTE Risk Assessment Done? Y/N: Yes Risk Level: Moderate Given or contraindicated: Enoxaparin (Lovenox)SQ
[2017-03-25] MEDS: BUMETANIDE IV 1 MG in SYRINGE 0 ML IV SCH (18:37)
[2017-03-25 19:48] VITALS: BP 150/77; PULSE 72; TEMP 36.9; O2SAT 96
[2017-03-25 19:48] LABS: CKMB/CK RATIO 2.1 (0-3.0)
[2017-03-25 20:00] VITALS: O2SAT 96
[2017-03-25] MEDS: POTASSIUM CHLORIDE 20 MEQ TABCR PO SCH (20:55)
[2017-03-25] MEDS: FLUTICASONE PROPIONATE NA SPR 16 GM BTL NAE SCH (20:55)
[2017-03-25] MEDS: GABAPENTIN 300 MG CAP PO SCH (20:56)
[2017-03-25 23:55] VITALS: BP 161/78; PULSE 69; TEMP 36.7; O2SAT 96
[2017-03-26] VITALS (10 sets, daily range): BP systolic 141–164; BP diastolic 67–84; PULSE 63–67; TEMP 36.4–36.7; O2SAT 96–98
[2017-03-26] MEDS ORDERED: LEVOTHYROXINE 100 MCG TAB PO SCH (06:00)
[2017-03-26] MEDS: [UNRECOGNIZED DRUG - OTHER] SCH ×3 (07:00→16:15)
[2017-03-26 07:45] LABS: HEMATOCRIT 40.6 % (42-52); MEAN CELL VOLUME 89.6 fL (80-100); MEAN CORPUSCULAR HEMOGLOBIN 29.6 pg (25-34); MEAN PLATELET VOLUME 9.6 fL (7.4-10.4); PLATELET COUNT 185 K/uL (130-400); RED BLOOD COUNT 4.53 M/uL (4.7-6.1); WHITE BLOOD COUNT 7.86 K/uL (4.8-10.8)
[2017-03-26 08:04] LABS: BUN/CREATININE RATIO 18.1 (10-20); CALCIUM 9.2 mg/dl (8.5-10.1); CREATININE 1.34 mg/dl (0.60-1.40); MAGNESIUM 2.4 mg/dl (1.8-2.4); POTASSIUM 3.5 mmol/L (3.5-5.1)
[2017-03-26] MEDS: BUMETANIDE IV 1 MG in SYRINGE 0 ML IV SCH (08:06)
[2017-03-26 08:07] LABS: CHOLESTEROL/HDL RATIO 2.7
[2017-03-26] MEDS: GABAPENTIN 300 MG CAP PO SCH ×2 (08:08→14:07)
[2017-03-26] MEDS: POTASSIUM CHLORIDE 20 MEQ TABCR PO SCH (08:09)
[2017-03-26] MEDS: FLUTICASONE PROPIONATE NA SPR 16 GM BTL NAE SCH (08:10)
[2017-03-26] MEDS ORDERED: ASPIRIN 81 MG ECTAB PO SCH ×2 (09:00)
[2017-03-26] MEDS ORDERED: MAGNESIUM OXIDE 400 MG TAB PO SCH (09:00)
[2017-03-26] MEDS ORDERED: METOPROLOL SUCC 50MG EXT REL TAB PO SCH (09:00)
[2017-03-26] MEDS ORDERED: PANTOprazole SOD 40 MG TAB PO SCH (09:00)
[2017-03-26] MEDS ORDERED: SPIRONOLACTONE 25 MG TAB PO SCH (09:00)
[2017-03-26] MEDS ORDERED: AMIODARONE 200 MG TAB PO SCH (09:00)
[2017-03-26] MEDS ORDERED: LOSARTAN POTASSIUM 25 MG TAB PO SCH (09:00)
[2017-03-26] MEDS ORDERED: ENOXAPARIN 40 MG/0.4 ML SYR SC SCH (09:00)
[2017-03-26] MEDS ORDERED: ATORVASTATIN 40 MG TAB PO SCH (09:00)
--- NOTE | 2017-03-26 14:23 | Cardiology Consultation ---
Cardiology Consultation Date of Consultation: Mar 26, 2017 History of Present Illness Ben shafer is a 51 year old male seen in cardiology consultation per the request of Dr Flores for the evaluation of chest pain and epigastric discomfort. The patient's primary paste maker is Dr Maya of our practice. Ben had recently been admitted from 02/23/17 to 03/01/17 for right 2nd toe cellulitis with recent right great toe partial amputation due to osteomyelitis just before that. The patient states that he presented to the emergency room yesterday with complaints of epigastric discomfort. He states in general he has not been feeling well for a few days. He noted that he tried to go hunting on Thursday. He felt like he did not overexert himself. He only walked approximately 100 yards. In the interim time, he had some sinus discomfort, and some epigastric discomfort that he describes as feeling as if he is gassy. He has been belching frequently. He denies any benedict chest discomfort. He notes that he has chronic lower extremity edema which is relatively unchanged. His been taking his diuretic therapy as prescribed at home and has been wearing his compression stockings. Currently. He feels better than he did yesterday. He notes diarrhea, but no blood per rectum. EKG performed in the emergency room yesterday revealed normal sinus rhythm with age-indeterminate anterior infarction pattern and no significant ST changes. Serial cardiac enzymes have been negative 3. History Past Medical History: Coronary artery disease, with remote silent LAD territory myocardial infarction on echocardiogram in 2010, patient went on to have cardiac catheterization on 09/25/[address] [facility] revealing a total occlusion of the proximal LAD and nonobstructive disease elsewhere. Medical management was recommended. Nuclear stress test was performed as an outpatient in April 2014 revealing area of the large LAD territory scar with no superimposed ischemia Most recent echocardiogram performed as an outpatient in our office 11/25/16 revealing evidence of an apical, septal, anteroseptal scar with ejection fraction in the range of 30-34% Status post single-chamber Medtronic AICD with discharges 12 in December 2016 prompting subsequent treatment with amiodarone and increased metoprolol therapy Obesity Type 2 diabetes mellitus Diabetic foot wounds, with osteomyelitis status post right great toe debridement and partial amputation 2016 Obesity Obstructive sleep apnea Past Surgical History: As noted above Social History: Nonsmoker. He is and lives with his family Family History: Family history significant for hypertension and diabetes, no premature coronary artery disease or sudden Review Of Systems See above for pertinent positives & negatives. A total of 10 systems reviewed and were otherwise negative. Allergies Coded Allergies: Benzonatate (Verified Adverse Reaction, Unknown, choking, gagging, ) Medications Reported Home Medications Medications Dose Route/Sig Max Daily Dose Days Date Category Dose Instructions Gabapentin 300 Mg Cap 300 Mg PO TID 03/25/17 Reported Magnesium Oxide (Magnesium Oxide (Mg Supplement) 400 Mg Tab 400 Mg PO DAILY 03/25/17 Reported Desyrel (Trazodone Hcl) 50 Mg Tab 1 Tab PO HS PRN 30 03/25/17 Reported Aspirin 81 Mg Tab 1 Tab PO DAILY 30 03/25/17 Reported Lipitor (Atorvastatin Calcium) 80 Mg Tab 80 Mg PO DAILY 02/28/17 Rx Metolazone 5 Mg Tab 5 Mg PO THURSDAY/THU/Thursday02/28/17 Rx Toprol-Xl (Metoprolol Succinate) 50 Mg Tabcr 1 Tab PO DAILY 30 02/28/17 Rx Klor-Con M20 (Potassium Chloride) 20 Meq Tabcr 40 Meq PO BID 02/02/17 Rx Bupropion HCl 100 Mg Tab 100 Mg PO BID 02/02/17 Rx Bumetanide 1 Mg Tab 1 Mg PO BID 01/26/17 Reported Losartan Potassium 25 Mg Tab 25 Mg PO DAILY 01/26/17 Reported Amiodarone HCl 200 Mg Tab 200 Mg PO DAILY 01/26/17 Reported Prilosec (Omeprazole) 20 Mg Capcr 20 Mg PO DAILY PRN 10/09/15 Reported Glucerna Meal Replacement (Nutritional Supplements) 1 Bar Bar 1 Unit PO PRN 10/09/15 Reported Flonase Allergy Relief (Fluticasone Propionate (Nasal)) 50 Mcg/Act Spr 2 Sprays DAIN BID 10/09/15 Reported Dulera 200/5 Mcg (Mometasone Furoate-Formoterol) 1 Aer Aer 2 Puffs INH BID 30 10/09/15 Reported Nitrostat (Nitroglycerin) 0.4 Mg Sub 0.4 Mg UT PRN 04/02/15 Reported Humulin R U-500 (Concentr (Insulin Regular (Human)) 500 Unit/Ml Inj SC UD 04/02/15 Reported INSULIN PUMP Levothyroxine Sodium 100 Mcg Tab 1 Tab PO QAM 04/02/15 Reported Ultram (Tramadol HCl) 50 Mg Tab 50 Mg PO Q6H PRN 04/02/15 Reported Aldactone (Spironolactone) 25 Mg Tab 25 Mg PO QAM 05/02/12 Reported Physical Exam Vital Signs (Last 8hrs): Last 8 Hrs Date Time Temp Pulse Resp B/P (MAP) Pulse Ox O2 Delivery O2 Flow Rate FiO2 03/26/17 12:00 98 Room Air 03/26/17 11:00 36.7 67 20 164/81 (108) 96 Room Air 03/26/17 08:00 98 Room Air 03/26/17 06:57 36.5 66 20 145/84 (104) 96 Room Air General Appearance: Alert and Oriented x3. NAD. Head: Normocephalic Atraumatic. Eyes: PERRLA, EOMI, conjunctiva and sclera clear Neck: Supple. No carotid bruits noted. No JVD. No HJD. Respiratory: Breath sounds clear to auscultation bilaterally. No w/r/r. Cardiovascular: Reg rate and rhythm. S1 and S2 noted. No murmurs, rubs, gallops. PMI non displace. Abdomen: Normal bowel sounds, soft nontender. no abdominal bruits. Extremities: 1-2+ bilateral lower extremity edema, no erythema, left foot is currently wrapped Neuro: No focal deficits. Psychiatric: Normal affect. Data Last Resulted 03/26/17 07:31 Last Resulted 03/26/17 07:31 Past 24 Hours Test 03/25/17 19:08 03/26/17 00:26 Range/Units Creatine Kinase MB 2.7 2.3 0.5-3.6 ng/ml Creatine Kinase MB Ratio 2.1 2.0 0-3.0 Total Creatine Kinase 126 114 39-308 U/L Troponin I < 0.015 < 0.015 0-0.045 ng/ml Chest x-ray as per radiology report, mild cardiomegaly and pulmonary vascular prominence, no benedict pulmonary edema EKG: Performed 03/25/17 reveals findings of an age-indeterminate anterior infarction with poor progression in the anterior precordial leads, no significant ST changes AICD interrogated today revealing appropriate function and no recent ventricular arrhythmias or treatments Assessment & Plan Impression: 51-year-old male 1. Nonanginal chest discomfort 2. Suspect viral respiratory, gastric enteritis illness 3. Chronic systolic heart failure, perhaps mild superimposed volume overload on admission, improved after a few doses of IV Bumex Recommendations: In retrospect, I do not believe the patient's recent symptoms are suggestive angina. His enzymes are negative. The patient believes that he has generalized viral illness, and I'm in agreement. His defibrillator check reveals appropriate function. His blood pressure is a little bit above goal, but given his complaint of diarrhea, and not quite feeling like himself, I think we should just continue his prior home medications. His weight today in the standard scales 170 kg, 374 pounds, which is a little bit higher in the 167 pounds noted his last measurement during the prior admission 02/28/17. Would discharge him on his chronic dose of Bumex 1 mg by mouth twice a day and spironolactone 25 mg daily with metolazone 5 mg in the morning on Mondays, Wednesdays, and Fridays. He is therefore due for his metolazone tomorrow.
--- NOTE | 2017-03-26 17:04 | Discharge Instructions ---
Discharge Instructions Date of Service Mar 26, 2017. Admission Reason for Admission: Chest Pain Discharge Discharge Diagnosis / Problem: CHEST PAIN NO EVIDENCE OF ACUTE CORONARY EVENT / ACUTE ON CHRONIC CHF Discharge Goals Goal(s): Decrease discomfort, Increase independence, Improve disease control, Diagnostic testing, Therapeutic intervention Activity Recommendations Activity Limitations: resume your previous activity . Instructions / Follow-Up Instructions / Follow-Up HOSPITAL FOLLOW UP :04/01/2017 11:10 AM Sherry Maya DO [facility] Call your Primary Care doctor if any of the following symptoms or problems start or get worse: * Shortness of breath or difficulty breathing * Wake up at night short of breath * Chest pain * Cough * Swelling of your hands, feet, or legs * More fatigued or tired with your normal activity * Palpitations - sudden fast heart beats WEIGHT * Weigh yourself every morning after using the bathroom. * Use the same scale. * Wear the same amount of clothing. * Write your weight down on a chart. * Call your Primary Care doctor if you gain more than 2-3 pounds in 1-2 days. MEDICATIONS * Use this discharge instruction sheet for medication instructions. * Take your medications at the time your doctor ordered. * Do not skip a dose of your medicines. * If you miss a dose of medicine, take it as soon as possible, but DO NOT DOUBLE A DOSE. * Read your medicine information when you get home. * Know all of the side effects of your medicine. If in doubt, ask your pharmacist * Call your Primary Care doctor's office if you have any side effects. * Be sure all of your doctors know what medicine and herbs you take (including cold, flu, and herbal medicine). Take the following with you to your follow-up doctor appointments: * Weight Chart * Medication List * List of questions Do not drink excessive alcohol, beer or wine. Current Hospital Diet Patient's current hospital diet: AHA Diet (Heart Healthy), Diabetes Type 2 Diet Discharge Diet Recommended Diet: AHA Diet (Heart Healthy), Diabetes Type 2 Diet Pending Studies Studies pending at discharge: no Laboratory Results Hemoglobin A1c Test 01/27/17 05:53 Range/Units Estimated Average Glucose 214 mg/dl Hemoglobin A1c 9.1 H 4.5-5.6 % Lipid Panel Test 03/26/17 07:31 Range/Units Triglycerides Level 126 0-150 mg/dl Cholesterol Level 111 0-200 mg/dl HDL Cholesterol 41 mg/dl Cholesterol/HDL Ratio 2.7 LDL Cholesterol, Calculated 45 mg/dl Medical Emergencies . Who to Call and When: Call 911 or go to the Emergency Room if: * If at any time you feel your situation is an emergency * You have tightness or pain in your chest that does not go away with rest or Nitroglycerin * You are very short of breath even with rest . Non-Emergent Contact Non-Emergency issues call your: Primary Care Provider . . "Provider Documentation" section prepared by Arcelia Forrester. . VTE Core Measure Inpt VTE Proph given/why not?: Enoxaparin (Lovenox)SQ
--- NOTE | 2017-03-26 17:23 | Discharge Summary ---
Discharge Summary Date of Service Mar 26, 2017. Discharge Summary Admission Date: Mar 25, 2017 at 14:29 Discharge Date: Mar 26, 2017 Discharge Disposition: Home Principal Diagnosis: CHEST PAIN NO EVIDENCE OF ACUTE CORONARY EVENT /ACUTE ON CHRONIC CHF Procedures: CHEST XRAY : IMPRESSION: 1. Mild cardiomegaly and pulmonary vascular prominence could suggest volume overload. This is not significantly changed from the prior exam. No benedict pulmonary edema. Consultations: [facility] DR BOWMAN Medication Reconciliation Continued Medications: Amiodarone HCl (Amiodarone HCl) 200 Mg Tab 200 MG PO DAILY Aspirin (Aspirin) 81 Mg Tab 1 TAB PO DAILY for 30 Days, #30 TAB 3 Refills Atorvastatin Calcium (Lipitor) 80 Mg Tab 80 MG PO DAILY, #30 TAB 5 Refills Bumetanide (Bumetanide) 1 Mg Tab 1 MG PO BID Bupropion HCl (Bupropion HCl) 100 Mg Tab 100 MG PO BID, #60 TAB 6 Refills Fluticasone Propionate (Nasal) (Flonase Allergy Relief) 50 Mcg/Act Spr 2 SPRAYS DAIN BID Gabapentin (Gabapentin) 300 Mg Cap 300 MG PO TID, CAP Insulin Regular (Human) (Humulin R U-500 (Concentr) 500 Unit/Ml Inj SC UD INSULIN PUMP Levothyroxine Sodium (Levothyroxine Sodium) 100 Mcg Tab 1 TAB PO QAM, TAB Losartan Potassium (Losartan Potassium) 25 Mg Tab 25 MG PO DAILY Magnesium Oxide (Mg Supplement (Magnesium Oxide) 400 Mg Tab 400 MG PO DAILY, TAB Metolazone (Metolazone) 5 Mg Tab 5 MG PO Thursday/Thu/Thursday, #30 TABS 2 Refills Metoprolol Succ (Toprol Xl) (Toprol-Xl) 50 Mg Tabcr 1 TAB PO DAILY for 30 Days, #30 TAB 5 Refills Mometasone Furoate-Formoterol (Dulera 200/5 Mcg) 1 Aer Aer 2 PUFFS INH BID for 30 Days, #13 GM 5 Refills Nitroglycerin (Nitrostat) 0.4 Mg Sub 0.4 MG UT PRN, BTL Nutritional Supplements (Glucerna Meal Replacement) 1 Bar Bar 1 UNIT PO prn Omeprazole (Prilosec) 20 Mg Capcr 20 MG PO DAILY PRN for PRN, CAP Potassium Chloride (Klor-Con M20) 20 Meq Tabcr 40 MEQ PO BID, #120 DOSE 6 Refills Spironolactone (Aldactone) 25 Mg Tab 25 MG PO QAM, TAB Tramadol (Ultram) 50 Mg Tab 50 MG PO Q6H PRN for Pain, TAB Trazodone Hcl (Desyrel) 50 Mg Tab 1 TAB PO HS PRN for insomnia for 30 Days, #30 TAB 1 Refill Admission Information HPI (per Admitting provider): 51 yo M with significant heart problems in the past including chronic systolic heart failure s/p ICD placement presents today with reports of chest tightness. He originally went to see his PCP for cold symptoms for the past week including a nonproductive cough, sneezing, and also reports of some chest tightness. He denies any associated symptoms related to the tightness including no diaphoresis, palpitations, nausea, vomiting or lightheadedness. He reports feeling like he has some gas under his sternal area, and feels like he needs to burp. As we continued to talk he then told me that the chest discomfort should not be described as a tightness actually, but couldn't find another way to describe it to me. He then stated that this is the same chest discomfort that he has chronically for years. Of note, he reported to the ER physician that he had 4/10 chest pain that was new and worse with ambulation. He denies any recent swelling in the legs, orthopnea, states he is compliant with his CPAP. He reports no worsening in his exercise tolerance but some increased dyspnea which he feels may be related to the congestion. He gives the example of being able to wall the mall two months ago and now, only now he would feel a little more short of breath. He was recently admitted for a toe amputation and just reportedly finished a two week course of Keflex last week. He also has some ulcerations between his toes on the R foot and on the sole of the L foot--all without evidence of superficial infection at this time. He denies any fevers,.chills, nausea, vomiting. He denies being prescribed anything new at his PCP's office for the URI earlier today and reports that he did take some OTC Blanche-seltzer Cold earlier this morning. He is asking me why he needs to come into the hospital as he reports feeling at his baseline. Per record review he was reportedly hospitalized in [place] for decompensated heart failure and his Torsemide was changed to Bumex and Zaroxolyn. He then became dehydrated and experienced 12 ICD shocks on 01/04/17 and was evaluated in the ED. He was found to have low Mg and low K. Amiodarone was started and he underwent a Lexiscan nuclear stress test which was negative for inducible ischemia. This information was all reported by the patient to his Powder Loader recently with no supporting records available on file to review. Since that discharge he returned to [place] and has been feeling well, although was recently hospitalized at [facility] for a RLQ osteomyelitis resulting in a partial amputation of his R great toe. At his recent Cardiology office visit, his Toprol was increased to 50mg PO daily, Lipitor was increased to 80mg PO daily and Magnesium supplements were started. Physical Exam (per Admitting): General Appearance: no apparent distress, + obese Head: normocephalic, atraumatic Eyes: normal inspection, PERRL, sclerae normal ENT: normal ENT inspection, hearing grossly normal, TMs normal, + pertinent finding (posterior pharyngeal cobblestoning with post-nasal drip visualized, no erythema or tonsillar enlargement, no exudates. Denies sinus TTP) Neck: supple, no adenopathy, no JVD, trachea midline Respiratory/Chest: chest non-tender, lungs clear, normal breath sounds, no respiratory distress, no accessory muscle use Cardiovascular: regular rate, rhythm, no edema, no gallop, no murmur Abdomen/GI: normal bowel sounds, non tender, soft Extremities/Musculoskelatal: + pertinent finding (L ulceration sole foot- Stage II, no surrounding erythema or drainage, approx 0.5-1cm. Partial amputation R great toe, healing well. 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 ACUTE ON CHRONIC CHF WITH SYSTOLIC DYSFUNCTION : presented with chest discomfort, RINALDI , increased lower extremity swelling , recent wt gain recent ECHO done in 11/25/16 : ischemic cardiomyopathy EF 30-34 % with apical , septal, anteroseptal scar pt treated with IV diuresis -negative balance of 1.1 L today symptomatically much improved appreciate help from Cardiology pt appears to be stable for cardiac stand point can be discharged home with prior diuretics regimen : Bumex 1 mg PO BID , Aldactone 25 mg daily /Metolazone 5 mg in AM of Thursday /Thursday and Thursday pt given the CHF discharge instruction with monitoring of Daily wt , notify physician with increased wt gain of 2-3 lb in 1-2 days hospital follow up scheduled with family physician Dr Kamaljit Zafar on 2016 11:10 AM CHEST PAIN : symptom has resolved possible due to decompensated CHF no evidence of angina or ACS no ischemic change in EKG appreciate cardiology eval no further cardiac work up needed pt will be continued with out pt cardiac meds management fo CHF as outlined above HX OF CAD hx of [facility] 2010 , Cardiac cath on 09/25/10 at [facility] showed total occlusion of proximal LAD and other non obstructive CAD recommended medical management pt is S/p AICD placement AICD interrogation shows -no evidence of arrhythmia of shock , appropriate battery life URI ; presented with mild nasal congestion , URI symptoms possible viral etiology symptom has resolved HTN: cont out med DYSLIPIDEMIA : on Lipitor 80 mg daily RT LOWER EXT CHRONIC DIABETIC WOUND ; s/p partial amputation of rt great toe due to osteomyelitis appreciate input form wound care no active infection noted cont local wound care with Aquacel Ag and Optifoam TYPE 2 DM on insulin pump appreciate pharmacy consult for glycemic management NINA : cont CPAP at night ACUTE KIDNEY INJURY ON CKD STAGE 3 : resolved cr approx baseline Full Code DVT proph: Lovenox DISPOSITION ; stable to be discharged home today no change in medication ordered medicine follow up with Dr Sherry Zafar at [facility] Discharge Instructions DI: CHF v4 Discharge Instructions Date of Service Mar 26, 2017. Admission Reason for Admission: Chest Pain Discharge Discharge Diagnosis / Problem: CHEST PAIN NO EVIDENCE OF ACUTE CORONARY EVENT / ACUTE ON CHRONIC CHF Discharge Goals Goal(s): Decrease discomfort, Increase independence, Improve disease control, Diagnostic testing, Therapeutic intervention Activity Recommendations Activity Limitations: resume your previous activity . Instructions / Follow-Up Instructions / Follow-Up HOSPITAL FOLLOW UP :04/01/2017 11:10 AM Sherry Maya DO [facility] Call your Primary Care doctor if any of the following symptoms or problems start or get worse: * Shortness of breath or difficulty breathing * Wake up at night short of breath * Chest pain * Cough * Swelling of your hands, feet, or legs * More fatigued or tired with your normal activity * Palpitations - sudden fast heart beats WEIGHT * Weigh yourself every morning after using the bathroom. * Use the same scale. * Wear the same amount of clothing. * Write your weight down on a chart. * Call your Primary Care doctor if you gain more than 2-3 pounds in 1-2 days. MEDICATIONS * Use this discharge instruction sheet for medication instructions. * Take your medications at the time your doctor ordered. * Do not skip a dose of your medicines. * If you miss a dose of medicine, take it as soon as possible, but DO NOT DOUBLE A DOSE. * Read your medicine information when you get home. * Know all of the side effects of your medicine. If in doubt, ask your pharmacist * Call your Primary Care doctor's office if you have any side effects. * Be sure all of your doctors know what medicine and herbs you take (including cold, flu, and herbal medicine). Take the following with you to your follow-up doctor appointments: * Weight Chart * Medication List * List of questions Do not drink excessive alcohol, beer or wine. Current Hospital Diet Patient's current hospital diet: AHA Diet (Heart Healthy), Diabetes Type 2 Diet Discharge Diet Recommended Diet: AHA Diet (Heart Healthy), Diabetes Type 2 Diet Pending Studies Studies pending at discharge: no Laboratory Results Hemoglobin A1c Test 01/27/17 05:53 Range/Units Estimated Average Glucose 214 mg/dl Hemoglobin A1c 9.1 H 4.5-5.6 % Lipid Panel Test 03/26/17 07:31 Range/Units Triglycerides Level 126 0-150 mg/dl Cholesterol Level 111 0-200 mg/dl HDL Cholesterol 41 mg/dl Cholesterol/HDL Ratio 2.7 LDL Cholesterol, Calculated 45 mg/dl Medical Emergencies . Who to Call and When: Call 911 or go to the Emergency Room if: * If at any time you feel your situation is an emergency * You have tightness or pain in your chest that does not go away with rest or Nitroglycerin * You are very short of breath even with rest . Non-Emergent Contact Non-Emergency issues call your: Primary Care Provider . . "Provider Documentation" section prepared by Arcelia Forrester. . VTE Core Measure Inpt VTE Proph given/why not?: Enoxaparin (Lovenox)SQ Additional Copies To Sherry Maya D.O.
[2017-03-27] MEDS ORDERED: METOLAZONE 5 MG TAB PO SCH (09:00)
== END 2017-03-26 17:57 | disposition home or self-care (01) ==
LOC: C.EDB 12:15 → C.2T 14:29 → ENRESERV 15:23 → C.2T 19:02
PROVIDERS: ADMIT Hospitalist; ATTEND Hospitalist
DX: R07.2 Precordial pain (principal); I50.9 Heart failure, unspecified; I51.7 Cardiomegaly; E11.42 Type 2 diabetes mellitus with diabetic polyneuropathy; E03.9 Hypothyroidism, unspecified; G47.33 Obstructive sleep apnea (adult) (pediatric); Z95.810 Presence of automatic (implantable) cardiac defibrillator; Z86.79 Personal history of other diseases of the circulatory system; Z79.4 Long term (current) use of insulin; Z79.82 Long term (current) use of aspirin; Z79.899 Other long term (current) drug therapy

== ENCOUNTER → 2017-05-21 | Outpatient (CLI) | payer BC, OTHER ==
[~2017-05-21] MED LIST changes: -ASPCH81 PO; +ASPI1TAB83 PO; -DSY50 PO; -ERGO500011 PO; +GABA1CAP4 PO; -LACTCHW3 PO; +MAGN1TAB19 PO; +OPTIRAY 320 IV PRN; +TRAZ-120 PO
--- NOTE | 2017-05-21 15:30 | DIAGNOSTIC IMAGING REPORT ---
CT SCAN OF THE LEFT FOOT WITH IV CONTRAST CLINICAL HISTORY: Left foot infection. COMPARISON STUDY: Radiographs of the left foot dated 01/20/2017. TECHNIQUE: CT scan of the left foot is performed following the IV administration of 93 cc of Optiray 320. Images are reviewed in the axial, sagittal, and coronal planes. IV contrast was administered without complication. A dose lowering technique was utilized adhering to the principles of ALARA. Note that interpretation is suboptimal without current plain film correlate. FINDINGS: The skeletal structures are osteopenic. No fracture is identified in the right foot are ankle. No bony erosion or periostitis is identified. There is no evidence of Lisfranc injury. There is a nonunited fracture through the proximal shaft of the fifth metatarsal with bony overgrowth and sclerosis. This is best seen on axial image 166. Mild arthritic change is noted in the midfoot. There is some evidence of osteochondral defect in the talar dome. There is maintenance of normal fat within the sinus tarsi. The Achilles tendon is intact as visualized. The plantar fascia is normal as imaged. There are dorsal and plantar calcaneal enthesophytes. Fatty atrophy is seen throughout the regional musculature. There is subcutaneous soft tissue edema and fluid identified in the ankle, greatest laterally. This is also seen in the foot. A tiny ulceration is questioned at the level of the fifth metatarsal. No organized fluid collection is seen to indicate abscess. IMPRESSION: 1. No acute bony abnormality is identified in the left foot. 2. There is a nonunited fracture again seen through the proximal shaft of the fifth metatarsal. 3. Subcutaneous soft tissue edema and fluid is present throughout the foot and ankle, greatest laterally. This suggests cellulitis. No organized fluid collection is seen to indication abscess. 4. An ulceration is questioned along the plantar aspect of the foot at the base of the fifth metatarsal. Clinical correlation will be required. Dictated: 05/21/2017 2:46 PM Transcribed: 05/21/2017 3:30 PM [place] Electronically signed by: Lukas Trivedi M.D. 05/21/2017 3:37 PM Dictated Date/Time: 05/21/2017 2:46 PM
== END | disposition home or self-care (01) ==
LOC: C.CTS 14:05
PROVIDERS: ATTEND Physician Assistant
DX: R60.0 Localized edema (principal); M84.475K Pathological fracture, left foot, subsequent encounter for fracture with nonunion

== ENCOUNTER → 2017-05-26 | Outpatient (CLI) | payer BC, OTHER ==
[~2017-05-26] MED LIST changes: -OPTIRAY 320 IV PRN
[2017-05-26 13:40] LABS: BLOOD UREA NITROGEN 37 mg/dl (7-18); CREATININE 1.96 mg/dl (0.60-1.40)
--- NOTE | 2017-06-03 08:52 | CODING QUERY NO DIAGNOSIS ---
: 1965 TREATMENT RENDERED WITHOUT A DIAGNOSIS To promote full compliance with coding requirements relating to patient care, physician participation is requested in all cases of rad tech uncertainty. Please assist us with providing a diagnosis/symptom for the test(s) below: A diagnosis/symptom was not documented on your Order. A valid diagnosis/symptom is required to bill all insurances. Please remember that we are unable to code a diagnosis of rule out, probable, possible, questionable, or suspected. Tests that require a diagnosis: DOS: 05/26/17 * BLOOD UREA NITROGEN DIAGNOSIS: * CREATININE DIAGNOSIS: Provider Signature: Date: Thank you Ninoska Chavez Health Information Management Once completed, please kindly fax back to [phone] For questions please call [phone]
== END | disposition home or self-care (01) ==
LOC: C.LAB 12:05
PROVIDERS: ATTEND Physician Assistant
DX: N28.9 Disorder of kidney and ureter, unspecified (principal); E11.9 Type 2 diabetes mellitus without complications

== ENCOUNTER 2017-08-03 11:05 | Inpatient (IN) | payer BC ==
[~2017-08-03] VITALS: Ht 182.9 cm; Wt 172.0 kg
[~2017-08-03 11:05] MED LIST changes: +AMOX875T PO; +GABA-1219 PO; -GABA1CAP4 PO; -KFL500 PO; -METO50TA7 PO; +METO50TA8 PO
[2017-08-03] MEDS ORDERED: CEFEPIME IV 1,000 MG in DEXTROSE 5% 100ML 100 ML IV STA (12:59)
[2017-08-03] MEDS ORDERED: VANCOMYCIN IV 2,000 MG in SODIUM CHLORIDE 0.9% 500ML 500 ML IV STA (12:59)
--- NOTE | 2017-08-03 12:59 | EMERGENCY ROOM VISIT NOTE ---
History Report prepared by Priscilla: Mychal Saucedo Under the Supervision of: Dr. Leatha Mckeon D.O. First contact with patient: 12:43 Chief Complaint: LEG PAIN,LEG INJURY Stated Complaint: POSSIBLE BLOOD CLOT, CELLULITIS History of Present Illness The patient is a 51 year old diabetic male who presents to the Emergency Room with complaints of a worsening left lower extremity infection over the past few days. He states that 4 nights ago, his left leg around the knee got really sore , and then the soreness spread to the rest of the leg. He adds that his right arm then got really cold that night, and he had the shivers for 6 to 8 hours. The patient notes that ever since then, he has felt tired and like "crap". He adds that he has been very nauseous since then. He says that he has had 4 episodes like this in the past year, and he has came here for it and was told that he an infection, but a source of the infection was not found he notes. He states that he still feels cold, but not shaking cold anymore. The patient notes that he is currently on Augmentin for the left lower extremity swelling, that goes from the foot to the knee. He says that the redness and swelling got better, but then worsened again 2 days ago. He states that he follows-up with Dr. Plata of infectious disease. The patient denies any cough or cold symptoms, abdominal pain, urinary symptoms, diarrhea, or change in his bowel movements. The patient adds that he sees wound care once per week. He says that he has issues with his neuropathy, and his sugars have been in the 300s recently. He notes no recent Tylenol or Advil use. Patient is noted to be a poor historian. Source of History: patient Onset: Past few days Position: leg (left) Symptom Intensity: even though he is on Augmentin Quality: other (swelling, redness) Timing: worsening Associated Symptoms: + chills (shivering), + nausea, + fatigue, No cough ( or cold symptoms), No abdominal pain, No diarrhea, No urinary symptoms Note: Still feels cold. Review of Systems See HPI for pertinent positives & negatives. A total of 10 systems reviewed and were otherwise negative. Past Medical & Surgical Medical Problems: (1) Acute renal failure syndrome (2) Amputated great toe of right foot (3) Asthma (4) Cardiac defibrillator in situ (5) Chest pain (6) CKD (chronic kidney disease) stage 3, GFR 30-59 ml/min (7) Dehydration (8) Diabetes mellitus type 2 (9) Diabetic foot infection (10) Diabetic peripheral neuropathy associated with type 2 diabetes mellitus (11) Edema (12) Essential hypertension (13) H/O osteomyelitis (14) History of diabetic ulcer of foot (15) HTN (hypertension) (16) Hyperlipidemia (17) Hypothyroidism (18) Ischemic cardiomyopathy (19) Loss of sensation (20) Morbid obesity (21) NINA on CPAP (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 (23) Partial traumatic amputation of right great toe, sequela (24) Right second toe ulcer (25) Statin intolerance (26) Systolic heart failure (27) Testicular hypofunction Surgical Problems: (1) History of tonsillectomy and adenoidectomy (2) S/P shoulder surgery (3) Status post amputation of right great toe Family History FH: cancer FH: heart attack GRANDFATHER Social History Smoking Status: Never Smoker Alcohol Use: none Drug Use: none Marital Status: Occupation Status: disabled Current/Historical Medications Scheduled Amiodarone HCl (Amiodarone HCl), 200 MG PO DAILY Amoxicillin & Pot Clavulanate (Augmentin 875-125 mg), 875 MG PO BID Aspirin (Aspirin), 1 TAB PO DAILY Atorvastatin (Lipitor), 80 MG PO DAILY Bumetanide (Bumetanide), 1 MG PO BID Dulaglutide (Trulicity), 0.5 ML INJ WK Fluticasone Propionate (Nasal) (Flonase Allergy Relief), 2 SPRAYS DAIN BID Gabapentin (Gabapentin), 300 MG PO TID Insulin Regular (Human) (Humulin R U-500 (Concentr), SC UD Levothyroxine Sodium (Levothyroxine Sodium), 1 TAB PO QAM Losartan Potassium (Losartan Potassium), 25 MG PO DAILY Magnesium Oxide (Mg Supplement (Magnesium Oxide), 400 MG PO DAILY Metolazone (Metolazone), 5 MG PO Thursday/Thu/Thursday Metoprolol Succ (Toprol Xl) (Toprol-Xl), 1 TAB PO DAILY Mometasone Furoate-Formoterol (Dulera 200/5 Mcg), 2 PUFFS INH BID Nitroglycerin (Nitrostat), 0.4 MG UT PRN Omeprazole (Prilosec), 20 MG PO DAILY Potassium Chloride (Klor-Con M20), 40 MEQ PO BID Spironolactone (Aldactone), 25 MG PO QAM Scheduled PRN Albuterol (Ventolin Hfa), 2 PUFFS INH Q4H PRN for SOB/Wheezing Tramadol (Ultram), 50 MG PO Q6H PRN for Pain Allergies Coded Allergies: Benzonatate (Verified Adverse Reaction, Unknown, choking, gagging, ) Physical Exam Vital Signs Date Time Temp Pulse Resp B/P (MAP) Pulse Ox O2 Delivery O2 Flow Rate FiO2 08/03/17 16:15 69 18 123/68 95 Room Air 08/03/17 14:38 74 20 123/68 96 Room Air 08/03/17 12:41 76 18 144/77 96 Room Air 08/03/17 11:20 37.6 74 18 158/91 95 Room Air Physical Exam GENERAL: obese, alert, well appearing, well nourished, no distress, non-toxic EYE EXAM: normal conjunctiva, PERRL and EOM's grossly intact OROPHARYNX: no exudate, no erythema, lips, buccal mucosa, and tongue normal and mucous membranes are moist NECK: supple, no nuchal rigidity, no adenopathy, non-tender LUNGS: Clear to auscultation. Normal chest wall mechanics HEART: no murmurs, S1 normal and S2 normal ABDOMEN: abdomen obese, soft, non-tender, normo-active bowel sounds, no masses, no rebound or guarding. BACK: Back is symmetrical on inspection and there is no deformity, no midline tenderness, no CVA tenderness. SKIN: no rashes and no bruising UPPER EXTREMITIES: upper extremities are grossly normal. LOWER EXTREMITIES: Left lower extremity is erythematous, warm to touch, edematous compared to right. Wound noted to the left lateral foot, covered with dressing, decent pulses bilaterally, DP and PT. NEURO EXAM: Normal sensorium, cranial nerves II-XII grossly intact, normal speech, no gross weakness of arms, no gross weakness of legs. Medical Decision & Procedures ER Provider Diagnostic Interpretation: US results have been interpreted by the radiologist and reviewed by me. LEFT LOWER EXTREMITY VENOUS DOPPLER HISTORY: Left leg swelling, pain COMPARISON STUDY: None. FINDINGS: There is normal compressibility, flow, and augmentation within the left lower extremity deep venous system. IMPRESSION: No DVT within the left lower extremity. Electronically signed by: Huey Thorne M.D. 08/03/2017 2:27 PM Dictated Date/Time: 08/03/2017 2:26 PM Laboratory Results Test 08/03/17 12:15 08/03/17 13:19 Prothrombin Time 10.6 SECONDS (9.0-12.0) Prothromb Time International Ratio 1.0 (0.9-1.1) Magnesium Level 2.4 mg/dl (1.8-2.4) Total Bilirubin 0.9 mg/dl (0.2-1) Aspartate Amino Transf (AST/SGOT) 23 U/L (15-37) Alanine Aminotransferase (ALT/SGPT) 25 U/L (12-78) Alkaline Phosphatase 94 U/L (45-117) Total Protein 8.7 gm/dl (6.4-8.2) Albumin 3.1 gm/dl (3.4-5.0) Globulin 5.6 gm/dl (2.5-4.0) Albumin/Globulin Ratio 0.6 (0.9-2) Bedside Lactic Acid Venous 1.16 mmol/L (0.90-1.70) Laboratory results per my review. Medications Administered Medications (Trade) Dose Ordered Sig/Pankaj Route Start Time Stop Time Status Last Admin Dose Admin Vancomycin HCl 2000 mg/Sodium Chloride 540 ml @ 200 mls/hr ONE STAT IV 08/03/17 12:59 08/03/17 15:40 DC 08/03/17 13:21 200 MLS/HR Cefepime HCl 1000 mg/Dextrose 111 ml @ 200 mls/hr NOW STAT IV 08/03/17 12:59 08/03/17 13:32 DC 08/03/17 13:21 200 MLS/HR ED Course 1247: The patient was evaluated in room B5. A complete history and physical exam was performed. 1258: EMR reviewed - the patient's wound culture from June 26 grew out E. coli , Enterococcus, and Corynebacterium. 1445: Furosemide 80 mg/Syringe 8 ml @ 4 mls/min IV, Zaroxolyn Tab 5 mg PO. 1452: Upon reevaluation, the patient is resting. I discussed the findings and the treatment plan with the patient. He expresses agreement and understanding. He will be evaluated for further management. 1512: I reviewed the patient's case with Tamia Lopez. She will evaluate the patient for further management. Medical Decision Differential diagnosis: Etiologies such as DVT, musculoskeletal, cellulitis, infection, joint effusion, trauma, lymphedema, idiopathic, CHF, as well as others were entertained.. Patient well-appearing here despite complaints. Patient with markedly edematous and erythematous left lower extremity. Doppler negative for DVT, and given history as well as recent lower extremity wound, most likely with evolving cellulitis that has been refractory to outpatient antibiotics. Patient with hyperglycemia noted at home despite poor intake and other mild systemic symptoms including subjective fevers and chills as well as increased fatigue. In light of systemic symptoms, failed outpatient treatment, patient admitted for IV antibiotics. Based on last wound culture from left foot done in wound clinic, patient covered with IV antibiotics. No evidence of bacteremia /sepsis, vital signs stable throughout. Medication Reconcilliation Current Medication List: was personally reviewed by me Blood Pressure Screening Patient's blood pressure: Normal blood pressure Consults Time Called: 151 Consulting Physician: Tamia Lopez Returned Call: [phone] I reviewed the patient's case with Tamia Lopez. She will evaluate the patient for further management. Impression Primary Impression: Cellulitis Additional Impression: Failure of outpatient treatment Scribe Attestation The scribe's documentation has been prepared under my direction and personally reviewed by me in its entirety. I confirm that the note above accurately reflects all work, treatment, procedures, and medical decision making performed by me. Departure Information Dispostion Being Evaluated By Hospitalist Referrals Sherry Maya D.O. (PCP) Patient Instructions My [facility] Problem Qualifiers Primary Impression: Cellulitis Site of cellulitis: extremity Site of cellulitis of extremity: lower extremity Laterality: left Qualified Codes: L03.116 - Cellulitis of left lower limb
[2017-08-03] MEDS ORDERED: VANCOMYCIN CONSULT ACTIVE PRN ×2 (13:00→18:53)
[2017-08-03 13:06] LABS: BASO % 0.2 %; BASO ABS # 0.02 K/uL (0-0.2); EOS % 0.6 %; EOS ABS # 0.07 K/uL (0-0.5); HEMOGLOBIN 14.5 g/dL (14.0-18.0); IG# 0.03 K/uL (0.00-0.02); LYMPH % 7.8 %; LYMPH ABS # 0.87 K/uL (1.2-3.4); MEAN CORPUSCULAR HGB CONC 34.5 g/dl (32-36); MONO % 11.8 %; MONO ABS # 1.31 K/uL (0.11-0.59); NEUT % 79.3 %; NEUT ABS # 8.81 K/uL (1.4-6.5); PLATELET COUNT 195 K/uL (130-400); RED CELL DISTRIBUTION WIDTH CV 14.9 % (11.5-14.5); RED CELL DISTRIBUTION WIDTH SD 48.3 fL (36.4-46.3); WHITE BLOOD COUNT 11.11 K/uL (4.8-10.8)
[2017-08-03 13:14] LABS: ALBUMIN 3.1 gm/dl (3.4-5.0); CALCIUM 9.2 mg/dl (8.5-10.1); CREATININE 2.06 mg/dl (0.60-1.40); POTASSIUM 3.7 mmol/L (3.5-5.1)
[2017-08-03 13:17] LABS: TOTAL PROTEIN 8.7 gm/dl (6.4-8.2)
--- NOTE | 2017-08-03 14:28 | DIAGNOSTIC IMAGING REPORT ---
LEFT LOWER EXTREMITY VENOUS DOPPLER HISTORY: Left leg swelling, pain COMPARISON STUDY: None. FINDINGS: There is normal compressibility, flow, and augmentation within the left lower extremity deep venous system. IMPRESSION: No DVT within the left lower extremity. Electronically signed by: Huey Thorne M.D. 08/03/2017 2:27 PM Dictated Date/Time: 08/03/2017 2:26 PM
[2017-08-03] MEDS ORDERED: FUROSEMIDE INJ 80 MG in SYRINGE 0 ML IV ONE (14:45)
[2017-08-03] MEDS ORDERED: METOLAZONE 5 MG TAB PO ONE (14:45)
[2017-08-03] MEDS ORDERED: ACETAMINOPHEN 325 MG TAB PO PRN (16:30)
[2017-08-03] MEDS ORDERED: ONDANSETRON INJ 2 MG/ML 2 ML VIAL IV PRN (16:30)
[2017-08-03] MEDS ORDERED: POLYETHYLENE (MIRALAX) 17 GM PACK PO PRN (16:30)
[2017-08-03] MEDS ORDERED: DULA1INJ INJ (16:31)
[2017-08-03] MEDS ORDERED: PRVHFAIN INH (16:43)
[2017-08-03] MEDS ORDERED: GLUCOSE 40% GEL 15 GM TUBE PO PRN (16:45)
[2017-08-03] MEDS ORDERED: GLUCAGON FOR INJ 1 MG VIAL SQ PRN (16:45)
[2017-08-03] MEDS ORDERED: GLUCOSE 10 TABS/TUBE PO PRN (16:45)
[2017-08-03] MEDS ORDERED: DEXTROSE 50% 50 ML SYR IV PRN (16:45)
[2017-08-03] MEDS ORDERED: NITROGLYCERIN 0.4 MG SL PER TAB CHARGE UT SCH (17:00)
[2017-08-03] MEDS ORDERED: ALBUTEROL HFA 8 GM INHALER INH PRN (17:00)
[2017-08-03] MEDS ORDERED: METOLAZONE 5 MG TAB PO SCH (17:00)
[2017-08-03 17:35] VITALS: BP 116/73; PULSE 73; TEMP 37.1; O2SAT 94
[2017-08-03] MEDS ORDERED: HUMULIN R U SC PRN (17:45)
[2017-08-03 17:54] VITALS: BP 116/73; PULSE 73; TEMP 37.1; O2SAT 94; BMI 51.4
[2017-08-03] MEDS ORDERED: PHARMACY GLYCEMIC MGMT CONSULT SCH (17:58)
--- NOTE | 2017-08-03 18:27 | Pharmacy Progress Note ---
Glycemic Control Intl Consult Date of Service Aug 03, 2017. Scope Glycemic Pharmacist consulted by Tamia Malcolm PAC on 08/03/17 for glycemic control and to write orders per [facility] inpatient glycemic control protocol Objective Weight (Kilograms): 171.900 Accuchecks BSG (last 24hrs): Test 08/03/17 12:15 Random Glucose 129 mg/dl (70-99) Laboratory Data (last 24hrs) Test 08/03/17 12:15 Anion Gap 9.0 mmol/L BUN/Creatinine Ratio 20.6 Blood Urea Nitrogen 42 mg/dl Creatinine 2.06 mg/dl Potassium Level 3.7 mmol/L Sodium Level 131 mmol/L White Blood Count 11.11 K/uL Red Blood Count 4.83 M/uL Hemoglobin 14.5 g/dL Hematocrit 42.0 % Mean Corpuscular Volume 87.0 fL Mean Corpuscular Hemoglobin 30.0 pg Mean Corpuscular Hemoglobin Concent 34.5 g/dl Platelet Count 195 K/uL Mean Platelet Volume 10.0 fL Neutrophils (%) (Auto) 79.3 % Lymphocytes (%) (Auto) 7.8 % Monocytes (%) (Auto) 11.8 % Eosinophils (%) (Auto) 0.6 % Basophils (%) (Auto) 0.2 % Neutrophils # (Auto) 8.81 K/uL Lymphocytes # (Auto) 0.87 K/uL Monocytes # (Auto) 1.31 K/uL Eosinophils # (Auto) 0.07 K/uL Basophils # (Auto) 0.02 K/uL HbA1c 9.1% 01/27/17 Recent Pertinent Medications Outpatient Anti-diabetic Regimen: * Patient sees [facility] providers for glycemic management * Dulaglutide (Truclicity) 0.75mg SQ weekly on Wednesdays * Humulin R U-500 insulin pump * Basal rates: 6623-8405 0.9units/hr (4.5units/hr); 7559-7287 1.6units/hr (8 units/hr); 4482-4110 2units/hr (10units/hr) * Prandial doses: 8 units (40units) w/ breakfast and lunch; 9 units (45 units) with dinner Risk Factors for Insulin Resistance: * Infection: cellulitis * Diet: T2DM/AHA diet Assessment & Plan ASSESSMENT: 08/03/17 * Type 2 diabetic admitted for LLE cellulitis; level of glycemic control prior to admission uncertain however pt admits that BSGs have been in the 300's frequently * Patient has been using an insulin pump for ~4-5 years at this time and feels confident he can manage his pump while admitted. * BSG 129 in ER, pump connected and running at the time I visited him. He does have his pumps supplies and U-500 insulin with him. * He last changed his insulin site 24-48 hours ago. He agrees to changing the site tomorrow evening. * Completed the "Insulin Pump Therapy Agreement" forms with the patient and provided him with the flow sheet to monitor his BSGs. * He does not have his BSG monitor with him today, but he will try to obtain it for use tomorrow. For the time being we will check his BSGs ACHS and at 0400 using our [employer] monitors * The patient is knowledgeable enough to adjust his pump settings if necessary. PLAN FOR INPATIENT GLYCEMIC CONTROL: * Check A1c with AM labs * Continuing patient's own U-500 insulin pump at this time per out-pt settings * Review BSGs and insulin doses each day to determine if pt needs assistance with glycemic control * Consider adding Trulicity if patient still admitted on Thursday (if glycemic targets not met) - pt is aware this is non-formulary and he will need to provide if needed * Please note that the plan above was derived based on current level of insulin resistance and hospital stress. These recommendations are appropriate for inpatient admission only. Plan of care upon discharge will need to be reassessed to avoid potential outpatient hypo/hyperglycemia. Thank you.
[2017-08-03] MEDS ORDERED: VANCOMYCIN IV 1,500 MG in SODIUM CHLORIDE 0.9% 500ML 500 ML IV SCH (19:00)
[2017-08-03] MEDS ORDERED: IMIPENEM/CILASTATIN CONSULT ACTIVE PRN (19:30)
--- NOTE | 2017-08-03 19:33 | History and Physical ---
History & Physical Date & Time of Service: Aug 03, 2017 at 18:58 Chief Complaint: Cellulitis Primary Care Physician: Sherry Maya D.O. History of Present Illness Source: patient, clinic records, hospital records Pt is 51 y/o M with PMH insulin-dependent DM II, CKD III, ischemic cardiomyopathy, history of VT, defibrillator, NINA on CPAP, HTN, hypothyroidism, depression presented to ER with complaint of left leg erythema discomfort. Patient states 4 days ago was wearing his GUCCI hose and noticed him to stop comfort to left leg. Patient states started to feel feverish and started to feel "ill". Yesterday nauseated and vomited once. Patient with decreased appetite past couple days. Patient noticed increased edema and erythema to left leg. Patient with history of chronic ulcer to left plantar foot, following with wound clinic and Dr. Plata-infectious disease. Patient currently on Augmentin. Wound culture left foot 06/26/17 E. coli, enterococcus faecalis, Corynebacterium. Patient reports wound has appeared to be healing and has not noticed any discharge or surrounding erythema to wound. Patient reports BS 150- 300's on past 2 days has been consistently in the 300s. Denies noting any open wounds to leg. Seen by PCP today noted to have temp of 100.4 F patient was sent to ER. Patient history partial right great toe amputation secondary to infection in the past. Chronic lower extremity edema patient denies any noted worsening except for left leg with associated erythema times couple of days. Denies diaphoresis, D/C, CURRY, dizziness, syncope, vision changes, neck pain, CP, SOB, orthopnea, palpitations, cough, sore throat, choking, otalgia, rhinorrhea, abdominal pain, urinary symptoms. Past Medical/Surgical History Medical Problems: (1) Acute renal failure syndrome Status: Resolved (2) Amputated great toe of right foot Status: Chronic (3) Asthma Status: Chronic (4) Cardiac defibrillator in situ Status: Chronic (5) Chest pain Status: Resolved (6) CKD (chronic kidney disease) stage 3, GFR 30-59 ml/min Status: Chronic (7) Dehydration Status: Resolved (8) Diabetes mellitus type 2 Status: Chronic (9) Diabetic peripheral neuropathy associated with type 2 diabetes mellitus Status: Chronic (10) Edema Status: Chronic (11) Essential hypertension Status: Chronic (12) H/O osteomyelitis Status: Chronic (13) History of diabetic ulcer of foot Status: Chronic (14) HTN (hypertension) Status: Chronic (15) Hyperlipidemia Status: Chronic (16) Hypothyroidism Status: Chronic (17) Ischemic cardiomyopathy Status: Chronic (18) Loss of sensation Status: Chronic (19) Morbid obesity Status: Chronic (20) NINA on CPAP Status: Chronic (21) Osteomyelitis of ankle or foot Status: Chronic (22) Partial traumatic amputation of right great toe, sequela Status: Chronic (23) Right second toe ulcer Status: Resolved (24) Statin intolerance Status: Chronic (25) Systolic heart failure Status: Chronic (26) Testicular hypofunction Status: Chronic Surgical Problems: (1) History of tonsillectomy and adenoidectomy Status: Resolved (2) S/P shoulder surgery Status: Chronic (3) Status post amputation of right great toe Status: Resolved Family History FH: cancer FH: heart attack GRANDFATHER Social History Smoking Status: Never Smoker Smokeless Tobacco Use: No Alcohol Use: occasionally Drug Use: none Marital Status: Housing status: lives with family Occupational Status: disabled Immunizations History of Influenza Vaccine: Yes Influenza Vaccine Date: Dec 10, 2016 History of Tetanus Vaccine?: Yes Tetanus Immunization Date: Dec 13, 2016 History of Pneumococcal: Yes Pneumococcal Date: Jan 04, 2017 History of Hepatitis B Vaccine: No Allergies Coded Allergies: Benzonatate (Verified Adverse Reaction, Unknown, choking, gagging, ) Home Medications Scheduled Amiodarone HCl (Amiodarone HCl), 200 MG PO DAILY Amoxicillin & Pot Clavulanate (Augmentin 875-125 mg), 875 MG PO BID Aspirin (Aspirin), 1 TAB PO DAILY Atorvastatin (Lipitor), 80 MG PO DAILY Bumetanide (Bumetanide), 1 MG PO BID Dulaglutide (Trulicity), 0.5 ML INJ WK Fluticasone Propionate (Nasal) (Flonase Allergy Relief), 2 SPRAYS DAIN BID Gabapentin (Gabapentin), 300 MG PO TID Insulin Regular (Human) (Humulin R U-500 (Concentr), SC UD Levothyroxine Sodium (Levothyroxine Sodium), 1 TAB PO QAM Losartan Potassium (Losartan Potassium), 25 MG PO DAILY Magnesium Oxide (Mg Supplement (Magnesium Oxide), 400 MG PO DAILY Metolazone (Metolazone), 5 MG PO Thursday/Thu/Thursday Metoprolol Succ (Toprol Xl) (Toprol-Xl), 1 TAB PO DAILY Mometasone Furoate-Formoterol (Dulera 200/5 Mcg), 2 PUFFS INH BID Nitroglycerin (Nitrostat), 0.4 MG UT PRN Omeprazole (Prilosec), 20 MG PO DAILY Potassium Chloride (Klor-Con M20), 40 MEQ PO BID Spironolactone (Aldactone), 25 MG PO QAM Scheduled PRN Albuterol (Ventolin Hfa), 2 PUFFS INH Q4H PRN for SOB/Wheezing Tramadol (Ultram), 50 MG PO Q6H PRN for Pain Review of Systems See HPI for pertinent positives & negatives. All other systems reviewed and were otherwise negative Physical Exam Vital Signs Date Time Temp Pulse Resp B/P (MAP) Pulse Ox O2 Delivery O2 Flow Rate FiO2 08/03/17 17:54 37.1 73 18 116/73 94 Room Air 08/03/17 17:35 37.1 73 18 116/73 (87) 94 08/03/17 17:01 71 18 147/73 95 Room Air 08/03/17 16:15 69 18 123/68 95 Room Air 08/03/17 14:38 74 20 123/68 96 Room Air 08/03/17 12:41 76 18 144/77 96 Room Air 08/03/17 11:20 37.6 74 18 158/91 95 Room Air General Appearance: no apparent distress, + obese Head: normocephalic, atraumatic Eyes: normal inspection, sclerae normal ENT: hearing grossly normal, pharynx normal, + pertinent finding (Mucous membranes moist) Neck: supple, no JVD, trachea midline Respiratory/Chest: lungs clear, normal breath sounds, no respiratory distress, no accessory muscle use Cardiovascular: regular rate, rhythm, no murmur Abdomen/GI: normal bowel sounds, non tender, soft Extremities/Musculoskelatal: + pertinent finding (Left lower extremity: Erythema and edema noted from knee distally with tenderness to palpation, plantar foot with wound without surrounding erythema or discharge. Right lower extremity without erythema, nontender, right great toe partial amputation. Distal pulses palpable bilaterally.) Neurologic/Psych: alert, normal mood/affect, oriented x 3 Skin: warm/dry, + pertinent finding (See above extremities) Diagnostics Laboratory Results Results Past 24 Hours Test 08/03/17 12:15 08/03/17 13:19 08/03/17 18:05 Range/Units White Blood Count 11.11 4.8-10.8 K/uL Red Blood Count 4.83 4.7-6.1 M/uL Hemoglobin 14.5 14.0-18.0 g/dL Hematocrit 42.0 42-52 % Mean Corpuscular Volume 87.0 80-100 fL Mean Corpuscular Hemoglobin 30.0 25-34 pg Mean Corpuscular Hemoglobin Concent 34.5 32-36 g/dl Platelet Count 195 130-400 K/uL Mean Platelet Volume 10.0 7.4-10.4 fL Neutrophils (%) (Auto) 79.3 % Lymphocytes (%) (Auto) 7.8 % Monocytes (%) (Auto) 11.8 % Eosinophils (%) (Auto) 0.6 % Basophils (%) (Auto) 0.2 % Neutrophils # (Auto) 8.81 1.4-6.5 K/uL Lymphocytes # (Auto) 0.87 1.2-3.4 K/uL Monocytes # (Auto) 1.31 0.11-0.59 K/uL Eosinophils # (Auto) 0.07 0-0.5 K/uL Basophils # (Auto) 0.02 0-0.2 K/uL RDW Standard Deviation 48.3 36.4-46.3 fL RDW Coefficient of Variation 14.9 11.5-14.5 % Immature Granulocyte % (Auto) 0.3 % Immature Granulocyte # (Auto) 0.03 0.00-0.02 K/uL Prothrombin Time 10.6 9.0-12.0 SECONDS Prothromb Time International Ratio 1.0 0.9-1.1 Sodium Level 131 136-145 mmol/L Potassium Level 3.7 3.5-5.1 mmol/L Chloride Level 95 98-107 mmol/L Carbon Dioxide Level 27 21-32 mmol/L Anion Gap 9.0 3-11 mmol/L Blood Urea Nitrogen 42 7-18 mg/dl Creatinine 2.06 0.60-1.40 mg/dl Est Creatinine Clear Calc Drug Dose 67.6 ml/min Estimated GFR () 41.4 Estimated GFR (Non- 35.7 BUN/Creatinine Ratio 20.6 10-20 Random Glucose 129 70-99 mg/dl Calcium Level 9.2 8.5-10.1 mg/dl Magnesium Level 2.4 1.8-2.4 mg/dl Total Bilirubin 0.9 0.2-1 mg/dl Aspartate Amino Transf (AST/SGOT) 23 15-37 U/L Alanine Aminotransferase (ALT/SGPT) 25 12-78 U/L Alkaline Phosphatase 94 45-117 U/L Total Protein 8.7 6.4-8.2 gm/dl Albumin 3.1 3.4-5.0 gm/dl Globulin 5.6 2.5-4.0 gm/dl Albumin/Globulin Ratio 0.6 0.9-2 Bedside Lactic Acid Venous 1.16 0.90-1.70 mmol/L Bedside Glucose 107 70-99 mg/dl Microbiology Results 08/03/17 Blood Culture, Received Pending 08/03/17 Blood Culture, Received Pending Diagnostic Radiology LEFT LOWER EXTREMITY VENOUS DOPPLER: IMPRESSION: No DVT within the left lower extremity. Impression Assessment and Plan Patient with history of left lower extremity erythema increased edema past several days with associated fever. LEFT LOWER EXTREMITY CELLULITIS In ER left lower extremity Doppler negative for DVT. WBC: 11, POC lactic acid: WNL. Temp: 37.6 cc, P: 74, R: 18, BP: 123/68. patient given cefepime, vancomycin and ER. -Pending blood cultures -Vancomycin, imipenem -Infectious disease consult -Wound consult HYPONATREMIA Na: 131. (Baseline 132/137) -Monitor PRP DM II-ON INSULIN PUMP HA1c on 05/14/17 8.9. Glucose 129. -Hold Trulicity -Glycemic consult - patient Humulin R U-500 CKD 3 Cr: 2. Baseline 1.5-1.9 -Hold losartan, Zaroxolyn, Spironolactone today -Recheck renal functions in the morning ISCHEMIC CARDIOMYOPATHY/ICD Denies SOB, chest pain -Continue aspirin, amiodarone, statin, metoprolol -holding Zaroxolyn, spironolactone, losartan until recheck renal functions HYPOTHYROIDISM TSH 3.2 on 05/14/17 -Continue levothyroxine GERD -Continue PPI NINA -CPAP at bedtime ASTHMA Denies shortness of breath, wheezing -Continue Dulera, albuterol as needed DVT Prophylaxis -heparin sq Disposition admit med surg Full code Follows with Dr Maya for routine care Pt was seen with Dr Joseph. See addendum ATTENDING ADDENDUM care coordinated with ARCADIO Mendez. please refer to her notes for full details, I agree with her notes patient seen and examined, records reviewed by myself as well on exam, patient seen resting comfortably minimal leg pain has mild abdominal discomfort- "queasy", ongoing for weeks no other symptoms VS noted and reviewed oriented x 3, not in distress, speaks in sentences with no effort nor accessory muscle use normal rate, regular rhythm, no murmurs clear breath sounds bilaterally non distended, soft, nontender left lower leg : Significant edema and erythema Left knee: Positive mild edema and warmth no neuro deficits Sodium 131 Creatinine 2.0 ASSESSMENT/PLAN> LEFT LOWER LEG CELLULITIS CHRONIC LEFT FOOT WOUND No signs of sepsis Wound cultures June 26, 2017: Positive for E. coli and enterococcus Empiric vancomycin and cefepime ID consulted Care consulted RULE OUT LEFT KNEE JOINT INFECTION Check x-ray and ultrasound of the left knee other diagnoses and plan of care as per ARCADIO Mendez notes Isaiah Joseph MD Advanced Directives Existing Living Will: No Existing Power of Weed Controller: No Resuscitation Status Full Code VTE Prophylaxis Will order VTE Prophylaxis: Yes Additional Copies To Isaiah Joseph MD
[2017-08-03] MEDS: TRAMADOL HCL 50 MG TAB PO PRN (19:35)
[2017-08-03] MEDS: IMIPENEM/CILASTATIN IV 500 MG in D5W 100ML IV SCH (20:11)
[2017-08-03] MEDS: FLUTICASONE PROPIONATE NA SPR 16 GM BTL NAE SCH (20:12)
[2017-08-03] MEDS: POTASSIUM CHLORIDE 20 MEQ TABCR PO SCH (20:13)
[2017-08-03] MEDS: GABAPENTIN 300 MG CAP PO SCH (20:13)
[2017-08-03] MEDS: [UNRECOGNIZED DRUG - OTHER] SCH (20:57)
--- NOTE | 2017-08-03 21:36 | Pharmacy Progress Note ---
Pharmacy Antibiotic Consult Date of Service: Aug 03, 2017. Pharmacy Dosing Scope Pharmacy is consulted to initiate vancomycin and Primaxin IV dosing therapy, order appropriate labs and adjust drug dose/frequency. Subjective The patient is a 51 year old male admitted on Aug 03, 2017 at 16:16. with cellulitis of LLE. Objective Height (Feet): 6 Height (Inches): 0.00 Weight (Kilograms): 171.900 Lab Results (24hrs): Test 08/03/17 12:15 08/03/17 13:19 08/03/17 18:05 08/03/17 20:17 White Blood Count 11.11 K/uL (4.8-10.8) Red Blood Count 4.83 M/uL (4.7-6.1) Hemoglobin 14.5 g/dL (14.0-18.0) Hematocrit 42.0 % (42-52) Mean Corpuscular Volume 87.0 fL (80-100) Mean Corpuscular Hemoglobin 30.0 pg (25-34) Mean Corpuscular Hemoglobin Concent 34.5 g/dl (32-36) Platelet Count 195 K/uL (130-400) Mean Platelet Volume 10.0 fL (7.4-10.4) Neutrophils (%) (Auto) 79.3 % Lymphocytes (%) (Auto) 7.8 % Monocytes (%) (Auto) 11.8 % Eosinophils (%) (Auto) 0.6 % Basophils (%) (Auto) 0.2 % Neutrophils # (Auto) 8.81 K/uL (1.4-6.5) Lymphocytes # (Auto) 0.87 K/uL (1.2-3.4) Monocytes # (Auto) 1.31 K/uL (0.11-0.59) Eosinophils # (Auto) 0.07 K/uL (0-0.5) Basophils # (Auto) 0.02 K/uL (0-0.2) RDW Standard Deviation 48.3 fL (36.4-46.3) RDW Coefficient of Variation 14.9 % (11.5-14.5) Immature Granulocyte % (Auto) 0.3 % Immature Granulocyte # (Auto) 0.03 K/uL (0.00-0.02) Prothrombin Time 10.6 SECONDS (9.0-12.0) Prothromb Time International Ratio 1.0 (0.9-1.1) Sodium Level 131 mmol/L (136-145) Potassium Level 3.7 mmol/L (3.5-5.1) Chloride Level 95 mmol/L (98-107) Carbon Dioxide Level 27 mmol/L (21-32) Anion Gap 9.0 mmol/L (3-11) Blood Urea Nitrogen 42 mg/dl (7-18) Creatinine 2.06 mg/dl (0.60-1.40) Est Creatinine Clear Calc Drug Dose 67.6 ml/min Estimated GFR () 41.4 Estimated GFR (Non- 35.7 BUN/Creatinine Ratio 20.6 (10-20) Random Glucose 129 mg/dl (70-99) Calcium Level 9.2 mg/dl (8.5-10.1) Magnesium Level 2.4 mg/dl (1.8-2.4) Total Bilirubin 0.9 mg/dl (0.2-1) Aspartate Amino Transf (AST/SGOT) 23 U/L (15-37) Alanine Aminotransferase (ALT/SGPT) 25 U/L (12-78) Alkaline Phosphatase 94 U/L (45-117) Total Protein 8.7 gm/dl (6.4-8.2) Albumin 3.1 gm/dl (3.4-5.0) Globulin 5.6 gm/dl (2.5-4.0) Albumin/Globulin Ratio 0.6 (0.9-2) Bedside Lactic Acid Venous 1.16 mmol/L (0.90-1.70) Bedside Glucose 107 mg/dl (70-99) 92 mg/dl (70-99) Micro Results: BC's x 2 are pending Assessment & Plan Patient known to us from multiple past admissions. Last vancomycin dosing regimen was 2000mg q 18h, adjusted from q 14h where we saw some accumulation. Therefore we will begin therapy at 2000mg q 18h and adjust if necessary. Vancomycin: Loading dose: 2000mg in ER + 1500mg on arrival to floor to make a modified load of ~20mg/kg then: 2000 mg IV every 18 hours. Goal trough level estimate: between 15 - 20 mcg/mL Peak and trough or random level has been ordered for: 08/05 prior to 2000 dose. Primaxin for cellulitis target dose of 1gm IV q 8h adjusted to 500mg q 6h for CrCl 60-89ml/min. Pharmacy will continue to follow and will adjust dose/frequency as necessary. Thank you
[2017-08-03] MEDS: HEPARIN SOD 5000 UNIT/0.5 ML CARP SQ SCH (21:37)
[2017-08-03] MEDS ORDERED: ALUMINUM/MAGNESIUM SUSP 30 ML UDC PO PRN (22:15)
[2017-08-03] MEDS ORDERED: NURSING VERBAL MED ORDER ONE (22:15)
--- NOTE | 2017-08-03 22:47 | DIAGNOSTIC IMAGING REPORT ---
ULTRASOUND SOFT TISSUES LEFT KNEE CLINICAL HISTORY: Effusion. COMPARISON STUDY: Radiographs of left knee dated 08/03/2017. FINDINGS: Real-time, grayscale, and color flow sonography of the soft tissues of the left knee is performed anteriorly at the site of interest. There is mild subcutaneous soft tissue edema identified. A trace pocket of fluid in the prepatellar region measures up to 7 mm in thickness. There is no sonographic evidence of joint effusion. IMPRESSION: 1. No joint effusion is identified as clinically queried. 2. There is trace subcutaneous fluid in the prepatellar soft tissues, likely representing bursal fluid. Clinical correlation will be required. Electronically signed by: Lukas Trivedi M.D. 08/03/2017 10:46 PM Dictated Date/Time: 08/03/2017 10:43 PM
--- NOTE | 2017-08-03 22:49 | DIAGNOSTIC IMAGING REPORT ---
LEFT KNEE 2 VIEWS CLINICAL HISTORY: Left knee swelling. FINDINGS: AP and crosstable lateral views of the left knee are obtained. No prior studies are available for comparison at the time of dictation. The skeletal structures are well mineralized. No fracture is seen. There is minimal degenerative narrowing in the medial and patellofemoral compartments. Small patellar enthesophytes are observed. There is mild degenerative beaking of the tibial spine. Soft tissue edema is present around the knee. No large joint effusion is identified. Foci of atherosclerotic calcification are noted in the popliteal artery. IMPRESSION: Soft tissue edema with no acute bony abnormality identified in the left knee. Electronically signed by: Lukas Trivedi M.D. 08/03/2017 10:48 PM Dictated Date/Time: 08/03/2017 10:46 PM
[2017-08-03 23:12] VITALS: BP 147/91; PULSE 69; TEMP 37.2; O2SAT 95
[2017-08-04] MEDS: IMIPENEM/CILASTATIN IV 500 MG in D5W 100ML IV SCH ×2 (02:20→08:00)
[2017-08-04] MEDS ORDERED: NURSING VERBAL MED ORDER ONE ×2 (04:00→04:15)
[2017-08-04] MEDS: LEVOTHYROXINE 100 MCG TAB PO SCH (05:46)
[2017-08-04] MEDS: HEPARIN SOD 5000 UNIT/0.5 ML CARP SQ SCH ×3 (05:49→22:28)
[2017-08-04 07:20] LABS: BASO % 0.4 %; BASO ABS # 0.03 K/uL (0-0.2); EOS % 1.3 %; HEMATOCRIT 40.3 % (42-52); HEMOGLOBIN 13.9 g/dL (14.0-18.0); IG# 0.04 K/uL (0.00-0.02); LYMPH % 11.4 %; LYMPH ABS # 0.89 K/uL (1.2-3.4); MEAN CELL VOLUME 86.9 fL (80-100); MEAN CORPUSCULAR HGB CONC 34.5 g/dl (32-36); MEAN PLATELET VOLUME 10.1 fL (7.4-10.4); MONO % 11.8 %; MONO ABS # 0.92 K/uL (0.11-0.59); NEUT % 74.6 %; PLATELET COUNT 197 K/uL (130-400); WHITE BLOOD COUNT 7.78 K/uL (4.8-10.8)
[2017-08-04 07:26] VITALS: BP 138/76; PULSE 71; TEMP 36.8; O2SAT 96
[2017-08-04 07:48] LABS: CALCIUM 8.7 mg/dl (8.5-10.1); CREATININE 1.81 mg/dl (0.60-1.40); POTASSIUM 3.7 mmol/L (3.5-5.1)
[2017-08-04] MEDS: METOPROLOL SUCC 50MG EXT REL TAB PO SCH (08:00)
[2017-08-04] MEDS: MAGNESIUM OXIDE 400 MG TAB PO SCH (08:00)
[2017-08-04] MEDS ORDERED: VANCOMYCIN IV 2,000 MG in SODIUM CHLORIDE 0.9% 500ML 500 ML IV SCH (08:00)
[2017-08-04] MEDS: GABAPENTIN 300 MG CAP PO SCH ×3 (08:00→22:25)
[2017-08-04] MEDS: FLUTICASONE PROPIONATE NA SPR 16 GM BTL NAE SCH ×2 (08:00→22:25)
[2017-08-04] MEDS: AMIODARONE 200 MG TAB PO SCH (08:01)
[2017-08-04] MEDS: ASPIRIN 81 MG ECTAB PO SCH (08:01)
[2017-08-04] MEDS: POTASSIUM CHLORIDE 20 MEQ TABCR PO SCH ×2 (08:01→22:26)
[2017-08-04] MEDS: ATORVASTATIN 40 MG TAB PO SCH (08:01)
[2017-08-04] MEDS: PANTOprazole SOD 40 MG TAB PO SCH (08:01)
[2017-08-04] MEDS: [UNRECOGNIZED DRUG - OTHER] SCH ×4 (08:01→21:00)
[2017-08-04 08:44] LABS: HEMOGLOBIN A1C 10.1 % (4.5-5.6)
[2017-08-04] MEDS ORDERED: LOSARTAN POTASSIUM 25 MG TAB PO SCH (09:00)
[2017-08-04] MEDS: TRAMADOL HCL 50 MG TAB PO PRN ×2 (09:07→23:18)
--- NOTE | 2017-08-04 10:01 | Medical Consult ---
Consultation Date of Consultation: Aug 04, 2017. Attending Physician: Isaiah Joseph MD Reason for Consultation: Left lower extremity cellulitis, chronic left foot ulcer History of Present Illness 51-year-old male well known to the Infectious Disease service with history poorly controlled diabetes mellitus, peripheral vascular disease, status post right great toe amputation, previous osteomyelitis of the foot, being followed [facility] for left foot ulcer with previous cultures positive for MSSA, E coli, and Enterococcus. Has been treated with combination of Augmentin levofloxacin with improvement. However, started last , patient noted increasing pain redness and swelling of the left lower extremity. Ultimately came to the emergency department found to have left lower extremity cellulitis. Has been started on vancomycin and Zosyn. Complaining of severe pain, currently 6/10 intensity left low lower extremity. Currently afebrile, blood cultures are pending. Past Medical/Surgical History Medical Problems: (1) Bacteremia Status: Acute (2) Cellulitis Status: Acute (3) Failure of outpatient treatment Status: Acute (4) Folliculitis Status: Acute (5) Precordial chest pain Status: Acute (6) Pyelonephritis Status: Acute Medical Problems: (1) Acute renal failure syndrome (2) Amputated great toe of right foot (3) Asthma (4) Cardiac defibrillator in situ (5) Chest pain (6) CKD (chronic kidney disease) stage 3, GFR 30-59 ml/min (7) Dehydration (8) Diabetes mellitus type 2 (9) Diabetic foot infection (10) Diabetic peripheral neuropathy associated with type 2 diabetes mellitus (11) Edema (12) Essential hypertension (13) H/O osteomyelitis (14) History of diabetic ulcer of foot (15) HTN (hypertension) (16) Hyperlipidemia (17) Hypothyroidism (18) Ischemic cardiomyopathy (19) Loss of sensation (20) Morbid obesity (21) NINA on CPAP (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 (23) Partial traumatic amputation of right great toe, sequela (24) Right second toe ulcer (25) Statin intolerance (26) Systolic heart failure (27) Testicular hypofunction Surgical Problems: (1) History of tonsillectomy and adenoidectomy (2) S/P shoulder surgery (3) Status post amputation of right great toe Family History FH: cancer FH: heart attack GRANDFATHER Social History Smoking Status: Never Smoker Smokeless Tobacco Use: No Alcohol Use: occasionally Drug Use: none Marital Status: Occupation Status: disabled Allergies Coded Allergies: Benzonatate (Verified Adverse Reaction, Unknown, choking, gagging, ) Current Inpatient Medications Current Inpatient Medications Medications (Trade) Dose Ordered Sig/Pankaj Route Start Time Stop Time Status Last Admin Dose Admin Heparin Sodium (Porcine) (Heparin Sq 5000 Unit/0.5ml) 5,000 unit Q8 SQ 08/03/17 22:00 09/02/17 21:59 08/04/17 05:49 5,000 UNIT Acetaminophen (Tylenol Tab) 650 mg Q4H PRN PO 08/03/17 16:30 09/02/17 16:29 08/03/17 16:43 650 MG Polyethylene (Miralax Powder Packet) 17 gm DAILY PRN PO 08/03/17 16:30 09/02/17 16:29 Ondansetron HCl (Zofran Inj) 4 mg Q6H PRN IV 08/03/17 16:30 09/02/17 16:29 Glucose (Glucose 40% Gel) 15-30 GRAMS 15 GRAMS... UD PRN PO 08/03/17 16:45 09/02/17 16:44 Glucose (Glucose Chew Tab) 4-8 Tablets 4 Tabl... UD PRN PO 08/03/17 16:45 09/02/17 16:44 Dextrose (Dextrose 50% 50ML Syringe) 25-50ML OF 50% DW IV FOR... UD PRN IV 08/03/17 16:45 09/02/17 16:44 Glucagon (Glucagon Inj) 1 mg UD PRN SQ 08/03/17 16:45 09/02/17 16:44 Miscellaneous Information (Consult Glycemic Management Pharmacy) 1 ea UD N/A 08/03/17 17:58 09/02/17 17:57 Albuterol (Ventolin Hfa Inhaler) 2 puffs Q4H PRN INH 08/03/17 17:00 09/02/17 16:59 Amiodarone HCl (Cordarone Tab) 200 mg DAILY PO 08/04/17 09:00 09/03/17 08:59 08/04/17 08:01 200 MG Aspirin (Ecotrin Tab) 81 mg DAILY PO 08/04/17 09:00 09/03/17 08:59 08/04/17 08:01 81 MG Atorvastatin Calcium (Lipitor Tab) 80 mg DAILY PO 08/04/17 09:00 09/03/17 08:59 08/04/17 08:01 80 MG Bumetanide (Bumex Tab) 1 mg BID17 PO 08/03/17 21:00 09/02/17 20:59 Future Hold Fluticasone Propionate (Flonase Nasal [place]) 2 sprays BID DAIN 08/03/17 21:00 09/02/17 20:59 08/04/17 08:00 2 SPRAYS Gabapentin (Neurontin Cap) 300 mg TID PO 08/03/17 21:00 09/02/17 20:59 08/04/17 08:00 300 MG Levothyroxine Sodium (Synthroid Tab) 100 mcg DAILYBB PO 08/04/17 06:30 09/03/17 06:29 08/04/17 05:46 100 MCG Metoprolol Succinate (Toprol Xl Tab) 50 mg DAILY PO 08/04/17 09:00 09/03/17 08:59 08/04/17 08:00 50 MG Nitroglycerin (Nitrostat Tab) 0.4 mg PRN UT 08/03/17 17:00 09/02/17 16:59 Potassium Chloride (Klor-Con Tab) 40 meq BID PO 08/03/17 21:00 09/02/17 20:59 08/04/17 08:01 40 MEQ Spironolactone (Aldactone Tab) 25 mg QAM PO 08/04/17 09:00 09/03/17 08:59 Future Hold Tramadol HCl (Ultram Tab) 50 mg Q6H PRN PO 08/03/17 17:00 09/02/17 16:59 08/04/17 09:07 50 MG Magnesium Oxide (Mag-Ox Tab) 400 mg DAILY PO 08/04/17 09:00 09/03/17 08:59 08/04/17 08:00 400 MG Miscellaneous Information (Order Awaiting Action) 1 ea QS N/A 08/04/17 00:00 09/03/17 00:00 Pantoprazole Sodium (Protonix Tab) 40 mg DAILY PO 08/04/17 09:00 09/03/17 08:59 08/04/17 08:01 40 MG Miscellaneous Information (Consult) 1 ea UD PRN N/A 08/03/17 18:53 09/02/17 18:52 Insulin Human Regular (Insulin Humulin Regular U-500 Pump) 1 ea ACHS N/A 08/03/17 21:00 09/02/17 20:59 08/04/17 08:01 1 EA Insulin Human Regular (Humulin-R U-500) ACHS PRN SC 08/03/17 17:45 09/02/17 17:44 Imipenem/ Cilastatin Sodium (Consult) 1 ea UD PRN N/A 08/03/17 19:30 09/02/17 19:29 Imipenem/ Cilastatin Sodium 500 mg/Sodium Chloride 110 ml @ 110 mls/hr Q6H IV 08/03/17 20:00 08/13/17 19:59 08/04/17 08:00 110 MLS/HR Vancomycin HCl 2000 mg/Sodium Chloride 540 ml @ 200 mls/hr Q18H IV 08/04/17 08:00 08/14/17 07:59 08/04/17 09:07 200 MLS/HR Al Hydroxide/Mg Hydroxide (Maalox Susp) 30 ml Q6H PRN PO 08/03/17 22:15 09/02/17 22:14 Review of Systems All systems were reviewed and are negative except as per HPI Physical Exam Date Time Temp Pulse Resp B/P (MAP) Pulse Ox O2 Delivery O2 Flow Rate FiO2 08/04/17 07:26 36.8 71 18 138/76 (96) 96 08/04/17 00:30 Room Air 08/03/17 23:12 37.2 69 20 147/91 (109) 95 Room Air 08/03/17 17:54 37.1 73 18 116/73 94 Room Air 08/03/17 17:35 37.1 73 18 116/73 (87) 94 08/03/17 17:01 71 18 147/73 95 Room Air 08/03/17 16:15 69 18 123/68 95 Room Air 08/03/17 14:38 74 20 123/68 96 Room Air 08/03/17 12:41 76 18 144/77 96 Room Air 08/03/17 11:20 37.6 74 18 158/91 95 Room Air General Appearance: WD/WN, no apparent distress, + obese Head: normocephalic, atraumatic Eyes: normal inspection, EOMI, sclerae normal ENT: normal ENT inspection, hearing grossly normal, pharynx normal Neck: supple, no adenopathy, thyroid normal, trachea midline Respiratory/Chest: chest non-tender, lungs clear, normal breath sounds, no respiratory distress Cardiovascular: regular rate, rhythm, no gallop, no murmur Abdomen/GI: normal bowel sounds, non tender, soft, no organomegaly Back: normal inspection, no CVA tenderness Extremities/Musculoskelatal: no calf tenderness, + inflammation, + swelling, + pertinent finding (Tenderness left lower extremity) Neurologic/Psych: alert, oriented x 3 Skin: normal color, + pertinent finding (Severe chronic venous stasis changes bilaterally, left lower extremity erythema) Lymphatic: no adenopathy Laboratory Results Date/Time Source Procedure Growth Status 08/03/17 13:15 Blood Blood Culture Pending Received 08/03/17 12:15 Blood Blood Culture Pending Received Last 24 Hours Test 08/03/17 12:15 08/03/17 13:19 08/03/17 18:05 08/03/17 20:17 White Blood Count 11.11 K/uL Red Blood Count 4.83 M/uL Hemoglobin 14.5 g/dL Hematocrit 42.0 % Mean Corpuscular Volume 87.0 fL Mean Corpuscular Hemoglobin 30.0 pg Mean Corpuscular Hemoglobin Concent 34.5 g/dl Platelet Count 195 K/uL Mean Platelet Volume 10.0 fL Neutrophils (%) (Auto) 79.3 % Lymphocytes (%) (Auto) 7.8 % Monocytes (%) (Auto) 11.8 % Eosinophils (%) (Auto) 0.6 % Basophils (%) (Auto) 0.2 % Neutrophils # (Auto) 8.81 K/uL Lymphocytes # (Auto) 0.87 K/uL Monocytes # (Auto) 1.31 K/uL Eosinophils # (Auto) 0.07 K/uL Basophils # (Auto) 0.02 K/uL RDW Standard Deviation 48.3 fL RDW Coefficient of Variation 14.9 % Immature Granulocyte % (Auto) 0.3 % Immature Granulocyte # (Auto) 0.03 K/uL Prothrombin Time 10.6 SECONDS Prothromb Time International Ratio 1.0 Sodium Level 131 mmol/L Potassium Level 3.7 mmol/L Chloride Level 95 mmol/L Carbon Dioxide Level 27 mmol/L Anion Gap 9.0 mmol/L Blood Urea Nitrogen 42 mg/dl Creatinine 2.06 mg/dl Est Creatinine Clear Calc Drug Dose 67.6 ml/min Estimated GFR () 41.4 Estimated GFR (Non- 35.7 BUN/Creatinine Ratio 20.6 Random Glucose 129 mg/dl Calcium Level 9.2 mg/dl Magnesium Level 2.4 mg/dl Total Bilirubin 0.9 mg/dl Aspartate Amino Transf (AST/SGOT) 23 U/L Alanine Aminotransferase (ALT/SGPT) 25 U/L Alkaline Phosphatase 94 U/L Total Protein 8.7 gm/dl Albumin 3.1 gm/dl Globulin 5.6 gm/dl Albumin/Globulin Ratio 0.6 Bedside Lactic Acid Venous 1.16 mmol/L Bedside Glucose 107 mg/dl 92 mg/dl Test 08/03/17 23:38 08/04/17 04:06 08/04/17 04:33 08/04/17 05:41 Bedside Glucose 78 mg/dl 60 mg/dl 65 mg/dl 125 mg/dl Test 08/04/17 06:59 White Blood Count 7.78 K/uL Red Blood Count 4.64 M/uL Hemoglobin 13.9 g/dL Hematocrit 40.3 % Mean Corpuscular Volume 86.9 fL Mean Corpuscular Hemoglobin 30.0 pg Mean Corpuscular Hemoglobin Concent 34.5 g/dl Platelet Count 197 K/uL Mean Platelet Volume 10.1 fL Neutrophils (%) (Auto) 74.6 % Lymphocytes (%) (Auto) 11.4 % Monocytes (%) (Auto) 11.8 % Eosinophils (%) (Auto) 1.3 % Basophils (%) (Auto) 0.4 % Neutrophils # (Auto) 5.80 K/uL Lymphocytes # (Auto) 0.89 K/uL Monocytes # (Auto) 0.92 K/uL Eosinophils # (Auto) 0.10 K/uL Basophils # (Auto) 0.03 K/uL RDW Standard Deviation 48.0 fL RDW Coefficient of Variation 15.0 % Immature Granulocyte % (Auto) 0.5 % Immature Granulocyte # (Auto) 0.04 K/uL Sodium Level 132 mmol/L Potassium Level 3.7 mmol/L Chloride Level 97 mmol/L Carbon Dioxide Level 27 mmol/L Anion Gap 8.0 mmol/L Blood Urea Nitrogen 36 mg/dl Creatinine 1.81 mg/dl Est Creatinine Clear Calc Drug Dose 77.0 ml/min Estimated GFR () 48.4 Estimated GFR (Non- 41.8 BUN/Creatinine Ratio 19.6 Random Glucose 193 mg/dl Estimated Average Glucose 243 mg/dl Hemoglobin A1c 10.1 % Calcium Level 8.7 mg/dl [~ rep ct add3]] ULTRASOUND SOFT TISSUES LEFT KNEE CLINICAL HISTORY: Effusion. COMPARISON STUDY: Radiographs of left knee dated 08/03/2017. FINDINGS: Real-time, grayscale, and color flow sonography of the soft tissues of the left knee is performed anteriorly at the site of interest. There is mild subcutaneous soft tissue edema identified. A trace pocket of fluid in the prepatellar region measures up to 7 mm in thickness. There is no sonographic evidence of joint effusion. IMPRESSION: 1. No joint effusion is identified as clinically queried. 2. There is trace subcutaneous fluid in the prepatellar soft tissues, likely representing bursal fluid. Clinical correlation will be required. Electronically signed by: Lukas Trivedi M.D. 08/03/2017 10:46 PM Dictated Date/Time: 08/03/2017 10:43 PM The status of this report is Signed. Draft = Not yet reviewed or approved Assessment & Plan Left lower extremity cellulitis in the setting of diabetes, peripheral vascular disease, severe lower extremity lymphedema and chronic venous stasis disease, with chronic left plantar ulcer which had been improving. Given difficulty with dosing of vancomycin, will change patient to IV ceftaroline, with length of IV antibiotics to be determined by clinical response.
[2017-08-04] MEDS: CEFTAROLINE FOSAMIL INJ 600 MG in SODIUM CHLORIDE 0.9% 250ML 250 ML IV SCH ×2 (12:24→23:26)
[2017-08-04 14:16] VITALS: Ht 182.9 cm; Wt 172.0 kg
[2017-08-04 15:23] VITALS: BP 126/75; PULSE 65; TEMP 36.5; O2SAT 96
--- NOTE | 2017-08-04 17:56 | Progress Note ---
Subjective Date of Service: Aug 04, 2017. Subjective Pt evaluation today including: conversation w/ patient, conversation w/ family , physical exam, lab review, review of studies, review of inpatient medication list Saw/examined the patient in room 262 He's doing okay, no fevers/chills RLE swollen, erythematous, edematous, venous stasis dermatitis changes Problem List Medical Problems: (1) Bacteremia Status: Acute (2) Cellulitis Status: Acute (3) Failure of outpatient treatment Status: Acute (4) Folliculitis Status: Acute (5) Precordial chest pain Status: Acute (6) Pyelonephritis Status: Acute Review of Systems Constitutional: No fever, No chills Respiratory: No shortness of breath Cardiac: No chest pain Musculoskeletal: + see HPI, + joint pain, + muscle pain, + swelling Medications Current Inpatient Medications Medications (Trade) Dose Ordered Sig/Pankaj Route Start Time Stop Time Status Last Admin Dose Admin Heparin Sodium (Porcine) (Heparin Sq 5000 Unit/0.5ml) 5,000 unit Q8 SQ 08/03/17 22:00 09/02/17 21:59 08/04/17 13:42 5,000 UNIT Acetaminophen (Tylenol Tab) 650 mg Q4H PRN PO 08/03/17 16:30 09/02/17 16:29 08/03/17 16:43 650 MG Polyethylene (Miralax Powder Packet) 17 gm DAILY PRN PO 08/03/17 16:30 09/02/17 16:29 Ondansetron HCl (Zofran Inj) 4 mg Q6H PRN IV 08/03/17 16:30 09/02/17 16:29 Glucose (Glucose 40% Gel) 15-30 GRAMS 15 GRAMS... UD PRN PO 08/03/17 16:45 09/02/17 16:44 Glucose (Glucose Chew Tab) 4-8 Tablets 4 Tabl... UD PRN PO 08/03/17 16:45 09/02/17 16:44 Dextrose (Dextrose 50% 50ML Syringe) 25-50ML OF 50% DW IV FOR... UD PRN IV 08/03/17 16:45 09/02/17 16:44 Glucagon (Glucagon Inj) 1 mg UD PRN SQ 08/03/17 16:45 09/02/17 16:44 Miscellaneous Information (Consult Glycemic Management Pharmacy) 1 ea UD N/A 08/03/17 17:58 09/02/17 17:57 Albuterol (Ventolin Hfa Inhaler) 2 puffs Q4H PRN INH 08/03/17 17:00 09/02/17 16:59 Amiodarone HCl (Cordarone Tab) 200 mg DAILY PO 08/04/17 09:00 09/03/17 08:59 08/04/17 08:01 200 MG Aspirin (Ecotrin Tab) 81 mg DAILY PO 08/04/17 09:00 09/03/17 08:59 08/04/17 08:01 81 MG Atorvastatin Calcium (Lipitor Tab) 80 mg DAILY PO 08/04/17 09:00 09/03/17 08:59 08/04/17 08:01 80 MG Bumetanide (Bumex Tab) 1 mg BID17 PO 08/03/17 21:00 09/02/17 20:59 Future Hold Fluticasone Propionate (Flonase Nasal [place]) 2 sprays BID DAIN 08/03/17 21:00 09/02/17 20:59 08/04/17 08:00 2 SPRAYS Gabapentin (Neurontin Cap) 300 mg TID PO 08/03/17 21:00 09/02/17 20:59 08/04/17 13:39 300 MG Levothyroxine Sodium (Synthroid Tab) 100 mcg DAILYBB PO 08/04/17 06:30 09/03/17 06:29 08/04/17 05:46 100 MCG Metoprolol Succinate (Toprol Xl Tab) 50 mg DAILY PO 08/04/17 09:00 09/03/17 08:59 08/04/17 08:00 50 MG Nitroglycerin (Nitrostat Tab) 0.4 mg PRN UT 08/03/17 17:00 09/02/17 16:59 Potassium Chloride (Klor-Con Tab) 40 meq BID PO 08/03/17 21:00 09/02/17 20:59 08/04/17 08:01 40 MEQ Spironolactone (Aldactone Tab) 25 mg QAM PO 08/04/17 09:00 09/03/17 08:59 Future Hold Tramadol HCl (Ultram Tab) 50 mg Q6H PRN PO 4/9/18 17:00 09/02/17 16:59 08/04/17 09:07 50 MG Magnesium Oxide (Mag-Ox Tab) 400 mg DAILY PO 08/04/17 09:00 09/03/17 08:59 08/04/17 08:00 400 MG Miscellaneous Information (Order Awaiting Action) 1 ea QS N/A 08/04/17 00:00 09/03/17 00:00 Pantoprazole Sodium (Protonix Tab) 40 mg DAILY PO 08/04/17 09:00 09/03/17 08:59 08/04/17 08:01 40 MG Insulin Human Regular (Insulin Humulin Regular U-500 Pump) 1 ea ACHS N/A 08/03/17 21:00 09/02/17 20:59 08/04/17 16:56 1 EA Insulin Human Regular (Humulin-R U-500) ACHS PRN SC 08/03/17 17:45 09/02/17 17:44 Al Hydroxide/Mg Hydroxide (Maalox Susp) 30 ml Q6H PRN PO 08/03/17 22:15 09/02/17 22:14 Ceftaroline Fosamil 600 mg/ Sodium Chloride 270 ml @ 250 mls/hr Q12H IV 08/04/17 12:00 08/14/17 10:14 08/04/17 12:24 250 MLS/HR Objective Vital Signs Date Time Temp Pulse Resp B/P (MAP) Pulse Ox O2 Delivery O2 Flow Rate FiO2 08/04/17 16:30 Room Air 08/04/17 15:23 36.5 65 18 126/75 (92) 96 08/04/17 08:30 Room Air 08/04/17 07:26 36.8 71 18 138/76 (96) 96 08/04/17 00:30 Room Air 08/03/17 23:12 37.2 69 20 147/91 (109) 95 Room Air 08/03/17 17:54 37.1 73 18 116/73 94 Room Air 08/03/17 17:35 37.1 73 18 116/73 (87) 94 Physical Exam General Appearance: no apparent distress, + obese Respiratory/Chest: chest non-tender, lungs clear, normal breath sounds, no respiratory distress, no accessory muscle use Cardiovascular: regular rate, rhythm, no murmur Extremities: + inflammation, + pedal edema, + swelling, + pertinent finding ( erythematous, edematous, dark discoloration, skin tightening) Neurologic/Psychiatric: no motor/sensory deficits, alert, normal mood/affect Laboratory Results Last 24 Hours Test 08/03/17 18:05 08/03/17 20:17 08/03/17 23:38 08/04/17 04:06 Bedside Glucose 107 mg/dl 92 mg/dl 78 mg/dl 60 mg/dl Test 08/04/17 04:33 08/04/17 05:41 08/04/17 06:59 08/04/17 11:24 Bedside Glucose 65 mg/dl 125 mg/dl 215 mg/dl White Blood Count 7.78 K/uL Red Blood Count 4.64 M/uL Hemoglobin 13.9 g/dL Hematocrit 40.3 % Mean Corpuscular Volume 86.9 fL Mean Corpuscular Hemoglobin 30.0 pg Mean Corpuscular Hemoglobin Concent 34.5 g/dl Platelet Count 197 K/uL Mean Platelet Volume 10.1 fL Neutrophils (%) (Auto) 74.6 % Lymphocytes (%) (Auto) 11.4 % Monocytes (%) (Auto) 11.8 % Eosinophils (%) (Auto) 1.3 % Basophils (%) (Auto) 0.4 % Neutrophils # (Auto) 5.80 K/uL Lymphocytes # (Auto) 0.89 K/uL Monocytes # (Auto) 0.92 K/uL Eosinophils # (Auto) 0.10 K/uL Basophils # (Auto) 0.03 K/uL RDW Standard Deviation 48.0 fL RDW Coefficient of Variation 15.0 % Immature Granulocyte % (Auto) 0.5 % Immature Granulocyte # (Auto) 0.04 K/uL Sodium Level 132 mmol/L Potassium Level 3.7 mmol/L Chloride Level 97 mmol/L Carbon Dioxide Level 27 mmol/L Anion Gap 8.0 mmol/L Blood Urea Nitrogen 36 mg/dl Creatinine 1.81 mg/dl Est Creatinine Clear Calc Drug Dose 77.0 ml/min Estimated GFR () 48.4 Estimated GFR (Non- 41.8 BUN/Creatinine Ratio 19.6 Random Glucose 193 mg/dl Estimated Average Glucose 243 mg/dl Hemoglobin A1c 10.1 % Calcium Level 8.7 mg/dl Test 08/04/17 16:25 Bedside Glucose 106 mg/dl Assessment and Plan This is a 51 year old male with a past medical history of uncontrolled, insulin dependent diabetes mellitus type 2, hyperlipidemia, hypertension, CAD, ischemic cardiomyopathy and chronic systolic CHF with LV dysfunction s/p ICD insertion, CKD stage 3, morbid obesity, hx. of peripheral vascular disease; chronic venous stasis and hx. of vascular ulcerations, recurrent diabetic ulcers, recurrent cellulitic changes, hx. of noncompliance - presents with worsening left lower extremity cellulitis Left Lower Extremity Cellulitis Hx. of Venous Stasis Ulcerations in the setting of Diabetes Mellitus - patient with recurrent LLE cellulitis - had been on Augmentin as outpatient - sees Dr. Delacruz and Dr. 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 seeing outpatient thread marker/refrigeration tech and weight management Ischemic Cardiomyopathy Chronic Systolic CHF Reduced LV Function, s/p ICD - last echo shows a reduced LVEF of around 30-35%, improved from previous - patient with ICD inserted - takes Bumex, Aldactone and Zaroxolyn three times weekly - will restart these medications Acute Kidney Injury superimposed on CKD stage 3 - creatinine baseline is around 1.5-1.6, presented with 2.0 - creat down to 1.8 - will restart diuretics due to swelling/edema of the LLE Hypothyroidism - continue Synthroid GERD - continue PPI NINA w/ Nocturnal CPAP Asthma - continue home inhalers DVT ppx - heparin sq FULL CODE
[2017-08-04] MEDS ORDERED: VANCOMYCIN TROUGH ONE (19:30)
[2017-08-05 00:22] VITALS: BP 125/71; PULSE 68; TEMP 36.7; O2SAT 96
[2017-08-05] MEDS: LEVOTHYROXINE 100 MCG TAB PO SCH (06:11)
[2017-08-05] MEDS: TRAMADOL HCL 50 MG TAB PO PRN ×3 (06:12→21:54)
[2017-08-05] MEDS: HEPARIN SOD 5000 UNIT/0.5 ML CARP SQ SCH ×3 (06:14→21:10)
[2017-08-05 07:06] VITALS: BP 148/87; PULSE 66; TEMP 36.7; O2SAT 95
[2017-08-05] MEDS: FLUTICASONE PROPIONATE NA SPR 16 GM BTL NAE SCH ×2 (07:46→21:03)
[2017-08-05 07:47] LABS: HEMATOCRIT 41.6 % (42-52); HEMOGLOBIN 13.9 g/dL (14.0-18.0); MEAN CELL VOLUME 87.6 fL (80-100); MEAN CORPUSCULAR HEMOGLOBIN 29.3 pg (25-34); MEAN CORPUSCULAR HGB CONC 33.4 g/dl (32-36); MEAN PLATELET VOLUME 9.6 fL (7.4-10.4); PLATELET COUNT 201 K/uL (130-400); RED CELL DISTRIBUTION WIDTH CV 14.9 % (11.5-14.5); RED CELL DISTRIBUTION WIDTH SD 48.1 fL (36.4-46.3); WHITE BLOOD COUNT 6.73 K/uL (4.8-10.8)
[2017-08-05] MEDS: ATORVASTATIN 40 MG TAB PO SCH (07:47)
[2017-08-05] MEDS: MAGNESIUM OXIDE 400 MG TAB PO SCH (07:47)
[2017-08-05] MEDS: POTASSIUM CHLORIDE 20 MEQ TABCR PO SCH ×2 (07:47→21:04)
[2017-08-05] MEDS: GABAPENTIN 300 MG CAP PO SCH ×3 (07:47→21:04)
[2017-08-05] MEDS: METOPROLOL SUCC 50MG EXT REL TAB PO SCH (07:47)
[2017-08-05] MEDS: PANTOprazole SOD 40 MG TAB PO SCH (07:47)
[2017-08-05] MEDS: ASPIRIN 81 MG ECTAB PO SCH (07:48)
[2017-08-05] MEDS: AMIODARONE 200 MG TAB PO SCH (07:48)
[2017-08-05] MEDS: [UNRECOGNIZED DRUG - OTHER] SCH ×4 (07:50→21:00)
[2017-08-05 08:26] LABS: CALCIUM 8.9 mg/dl (8.5-10.1); CREATININE 1.58 mg/dl (0.60-1.40); POTASSIUM 4.6 mmol/L (3.5-5.1)
[2017-08-05] MEDS: BUMETANIDE 1 MG TAB PO SCH ×2 (09:52→17:14)
[2017-08-05] MEDS: SPIRONOLACTONE 25 MG TAB PO SCH (09:52)
[2017-08-05] MEDS: CEFTAROLINE FOSAMIL INJ 600 MG in SODIUM CHLORIDE 0.9% 250ML 250 ML IV SCH ×2 (12:29→23:10)
--- NOTE | 2017-08-05 12:42 | Pharmacy Progress Note ---
Pharmacy Glycemic Sign Off Nt Date of Service Aug 05, 2017. Assessment & Plan ASSESSMENT: * Pharmacy was consulted by Amos Malcolm PA-C on 08/03/17 for glycemic control and to write orders per [facility] inpatient glycemic control protocol. * Major changes made by pharmacy to antidiabetic regimen include: * None, pt is using his own insulin pump per outpatient settings and wishes to continue to do so PLAN FOR INPATIENT GLYCEMIC CONTROL: No changes needed to current regimen. Pt to continue managing BSGs with own insulin pump. All criteria has been met per insulin pump policy. * Pharmacy is signing off of glycemic consult and will no longer be making adjustments to inpatient regimen. Please feel free to re-consult if needed. Thank you.
--- NOTE | 2017-08-05 13:13 | Progress Note ---
Subjective Date of Service: Aug 05, 2017. Subjective Pt evaluation today including: conversation w/ patient, physical exam, lab review, review of studies, review of inpatient medication list Saw/examined the patient in room 262 He's doing well, feeling better LLE - edema, redness persists Problem List Medical Problems: (1) Bacteremia Status: Acute (2) Cellulitis Status: Acute (3) Failure of outpatient treatment Status: Acute (4) Folliculitis Status: Acute (5) Precordial chest pain Status: Acute (6) Pyelonephritis Status: Acute Review of Systems Constitutional: No fever, No chills Respiratory: No cough, No sputum, No shortness of breath Cardiac: + edema, No chest pain, No palpitations Medications Current Inpatient Medications Medications (Trade) Dose Ordered Sig/Pankaj Route Start Time Stop Time Status Last Admin Dose Admin Heparin Sodium (Porcine) (Heparin Sq 5000 Unit/0.5ml) 5,000 unit Q8 SQ 08/03/17 22:00 09/02/17 21:59 08/05/17 06:14 5,000 UNIT Acetaminophen (Tylenol Tab) 650 mg Q4H PRN PO 08/03/17 16:30 09/02/17 16:29 08/03/17 16:43 650 MG Polyethylene (Miralax Powder Packet) 17 gm DAILY PRN PO 08/03/17 16:30 09/02/17 16:29 Ondansetron HCl (Zofran Inj) 4 mg Q6H PRN IV 08/03/17 16:30 09/02/17 16:29 Glucose (Glucose 40% Gel) 15-30 GRAMS 15 GRAMS... UD PRN PO 08/03/17 16:45 09/02/17 16:44 Glucose (Glucose Chew Tab) 4-8 Tablets 4 Tabl... UD PRN PO 08/03/17 16:45 09/02/17 16:44 Dextrose (Dextrose 50% 50ML Syringe) 25-50ML OF 50% DW IV FOR... UD PRN IV 08/03/17 16:45 09/02/17 16:44 Glucagon (Glucagon Inj) 1 mg UD PRN SQ 08/03/17 16:45 09/02/17 16:44 Albuterol (Ventolin Hfa Inhaler) 2 puffs Q4H PRN INH 08/03/17 17:00 09/02/17 16:59 Amiodarone HCl (Cordarone Tab) 200 mg DAILY PO 08/04/17 09:00 09/03/17 08:59 08/05/17 07:48 200 MG Aspirin (Ecotrin Tab) 81 mg DAILY PO 08/04/17 09:00 09/03/17 08:59 08/05/17 07:48 81 MG Atorvastatin Calcium (Lipitor Tab) 80 mg DAILY PO 08/04/17 09:00 09/03/17 08:59 08/05/17 07:47 80 MG Bumetanide (Bumex Tab) 1 mg BID17 PO 08/03/17 21:00 09/02/17 20:59 Future hold 08/05/17 09:52 1 MG Fluticasone Propionate (Flonase Nasal [place]) 2 sprays BID DAIN 08/03/17 21:00 09/02/17 20:59 08/05/17 07:46 2 SPRAYS Gabapentin (Neurontin Cap) 300 mg TID PO 08/03/17 21:00 09/02/17 20:59 08/05/17 07:47 300 MG Levothyroxine Sodium (Synthroid Tab) 100 mcg DAILYBB PO 08/04/17 06:30 09/03/17 06:29 08/05/17 06:11 100 MCG Metoprolol Succinate (Toprol Xl Tab) 50 mg DAILY PO 08/04/17 09:00 09/03/17 08:59 08/05/17 07:47 50 MG Nitroglycerin (Nitrostat Tab) 0.4 mg PRN UT 08/03/17 17:00 09/02/17 16:59 Potassium Chloride (Klor-Con Tab) 40 meq BID PO 08/03/17 21:00 09/02/17 20:59 08/05/17 07:47 40 MEQ Spironolactone (Aldactone Tab) 25 mg QAM PO 08/04/17 09:00 09/03/17 08:59 Future hold 08/05/17 09:52 25 MG Tramadol HCl (Ultram Tab) 50 mg Q6H PRN PO 08/03/17 17:00 09/02/17 16:59 08/05/17 06:12 50 MG Magnesium Oxide (Mag-Ox Tab) 400 mg DAILY PO 08/04/17 09:00 09/03/17 08:59 08/05/17 07:47 400 MG Miscellaneous Information (Order Awaiting Action) 1 ea QS N/A 08/04/17 00:00 09/03/17 00:00 Pantoprazole Sodium (Protonix Tab) 40 mg DAILY PO 08/04/17 09:00 09/03/17 08:59 08/05/17 07:47 40 MG Insulin Human Regular (Insulin Humulin Regular U-500 Pump) 1 ea ACHS N/A 08/03/17 21:00 09/02/17 20:59 08/05/17 12:05 1 EA Insulin Human Regular (Humulin-R U-500) ACHS PRN SC 08/03/17 17:45 09/02/17 17:44 Al Hydroxide/Mg Hydroxide (Maalox Susp) 30 ml Q6H PRN PO 08/03/17 22:15 09/02/17 22:14 Ceftaroline Fosamil 600 mg/ Sodium Chloride 270 ml @ 250 mls/hr Q12H IV 08/04/17 12:00 08/14/17 10:14 08/05/17 12:29 250 MLS/HR Objective Vital Signs Date Time Temp Pulse Resp B/P (MAP) Pulse Ox O2 Delivery O2 Flow Rate FiO2 08/05/17 08:45 Room Air 08/05/17 07:06 36.7 66 19 148/87 (107) 95 Room Air 08/05/17 00:22 36.7 68 20 125/71 (89) 96 Room Air 08/05/17 00:00 Room Air 08/04/17 20:00 Room Air 08/04/17 16:30 Room Air 08/04/17 15:23 36.5 65 18 126/75 (92) 96 Physical Exam General Appearance: no apparent distress, + obese Respiratory/Chest: no respiratory distress, no accessory muscle use Extremities: + pedal edema, + swelling, + pertinent finding (+swelling/ edematous/erythematous) Laboratory Results Last 24 Hours Test 08/04/17 16:25 08/04/17 20:05 08/04/17 23:50 08/05/17 07:18 Bedside Glucose 106 mg/dl 80 mg/dl 93 mg/dl 243 mg/dl Test 08/05/17 07:35 08/05/17 11:25 White Blood Count 6.73 K/uL Red Blood Count 4.75 M/uL Hemoglobin 13.9 g/dL Hematocrit 41.6 % Mean Corpuscular Volume 87.6 fL Mean Corpuscular Hemoglobin 29.3 pg Mean Corpuscular Hemoglobin Concent 33.4 g/dl RDW Standard Deviation 48.1 fL RDW Coefficient of Variation 14.9 % Platelet Count 201 K/uL Mean Platelet Volume 9.6 fL Sodium Level 134 mmol/L Potassium Level 4.6 mmol/L Chloride Level 100 mmol/L Carbon Dioxide Level 24 mmol/L Anion Gap 9.0 mmol/L Blood Urea Nitrogen 30 mg/dl Creatinine 1.58 mg/dl Est Creatinine Clear Calc Drug Dose 88.2 ml/min Estimated GFR () 57.0 Estimated GFR (Non- 49.2 BUN/Creatinine Ratio 19.1 Random Glucose 249 mg/dl Calcium Level 8.9 mg/dl Magnesium Level 2.6 mg/dl Bedside Glucose 285 mg/dl Assessment and Plan This is a 51 year old male with a past medical history of uncontrolled, insulin dependent diabetes mellitus type 2, hyperlipidemia, hypertension, CAD, ischemic cardiomyopathy and chronic systolic CHF with LV dysfunction s/p ICD insertion, CKD stage 3, morbid obesity, hx. of peripheral vascular disease; chronic venous stasis and hx. of vascular ulcerations, recurrent diabetic ulcers, recurrent cellulitic changes, hx. of noncompliance - presents with worsening left lower extremity cellulitis Left Lower Extremity Cellulitis Hx. of Venous Stasis Ulcerations in the setting of Diabetes Mellitus 08/05 - appreciate ID input - continue Teflaro - cultures are pending 08/04 - patient with recurrent LLE cellulitis - had been on Augmentin as outpatient - sees Dr. Delacruz and Dr. 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 seeing outpatient moisture tester/clinical psychology professor and weight management Ischemic Cardiomyopathy Chronic Systolic CHF Reduced LV Function, s/p ICD - last echo shows a reduced LVEF of around 30-35%, improved from previous - patient with ICD inserted - takes Bumex, Aldactone and Zaroxolyn three times weekly - will restart these medications Acute Kidney Injury superimposed on CKD stage 3 - back to baseline - creatinine baseline is around 1.5-1.6, presented with 2.0 - creat down to 1.8 - will restart diuretics due to swelling/edema of the LLE Hypothyroidism - continue Synthroid GERD - continue PPI NINA w/ Nocturnal CPAP Asthma - continue home inhalers DVT ppx - heparin sq FULL CODE
--- NOTE | 2017-08-05 15:01 | Infectious Disease Progress Nt ---
Progress Note Date of Service Aug 05, 2017. Subjective Pt evaluation today including: conversation w/ patient, physical exam, chart review, lab review, review of studies, conversation w/ web development consultant, review of inpatient medication list Patient states that his leg is starting to feel better. Pain still currently 7/ 10 in intensity left leg. Tolerating ceftaroline without apparent difficulty. No fever. No other new complaints. All Other Systems: Reviewed and Negative Medications Current Inpatient Medications Medications (Trade) Dose Ordered Sig/Pankaj Route Start Time Stop Time Status Last Admin Dose Admin Heparin Sodium (Porcine) (Heparin Sq 5000 Unit/0.5ml) 5,000 unit Q8 SQ 08/03/17 22:00 09/02/17 21:59 08/05/17 13:53 5,000 UNIT Acetaminophen (Tylenol Tab) 650 mg Q4H PRN PO 08/03/17 16:30 09/02/17 16:29 08/03/17 16:43 650 MG Polyethylene (Miralax Powder Packet) 17 gm DAILY PRN PO 08/03/17 16:30 09/02/17 16:29 Ondansetron HCl (Zofran Inj) 4 mg Q6H PRN IV 08/03/17 16:30 09/02/17 16:29 Glucose (Glucose 40% Gel) 15-30 GRAMS 15 GRAMS... UD PRN PO 08/03/17 16:45 09/02/17 16:44 Glucose (Glucose Chew Tab) 4-8 Tablets 4 Tabl... UD PRN PO 08/03/17 16:45 09/02/17 16:44 Dextrose (Dextrose 50% 50ML Syringe) 25-50ML OF 50% DW IV FOR... UD PRN IV 08/03/17 16:45 09/02/17 16:44 Glucagon (Glucagon Inj) 1 mg UD PRN SQ 08/03/17 16:45 09/02/17 16:44 Albuterol (Ventolin Hfa Inhaler) 2 puffs Q4H PRN INH 08/03/17 17:00 09/02/17 16:59 Amiodarone HCl (Cordarone Tab) 200 mg DAILY PO 08/04/17 09:00 09/03/17 08:59 08/05/17 07:48 200 MG Aspirin (Ecotrin Tab) 81 mg DAILY PO 4/10/18 09:00 09/03/17 08:59 08/05/17 07:48 81 MG Atorvastatin Calcium (Lipitor Tab) 80 mg DAILY PO 08/04/17 09:00 09/03/17 08:59 08/05/17 07:47 80 MG Bumetanide (Bumex Tab) 1 mg BID17 PO 08/03/17 21:00 09/02/17 20:59 Future hold 08/05/17 09:52 1 MG Fluticasone Propionate (Flonase Nasal [place]) 2 sprays BID DAIN 08/03/17 21:00 09/02/17 20:59 08/05/17 07:46 2 SPRAYS Gabapentin (Neurontin Cap) 300 mg TID PO 08/03/17 21:00 09/02/17 20:59 08/05/17 13:52 300 MG Levothyroxine Sodium (Synthroid Tab) 100 mcg DAILYBB PO 08/04/17 06:30 09/03/17 06:29 08/05/17 06:11 100 MCG Metoprolol Succinate (Toprol Xl Tab) 50 mg DAILY PO 08/04/17 09:00 09/03/17 08:59 08/05/17 07:47 50 MG Nitroglycerin (Nitrostat Tab) 0.4 mg PRN UT 08/03/17 17:00 09/02/17 16:59 Potassium Chloride (Klor-Con Tab) 40 meq BID PO 08/03/17 21:00 09/02/17 20:59 08/05/17 07:47 40 MEQ Spironolactone (Aldactone Tab) 25 mg QAM PO 08/04/17 09:00 09/03/17 08:59 Future hold 08/05/17 09:52 25 MG Tramadol HCl (Ultram Tab) 50 mg Q6H PRN PO 08/03/17 17:00 09/02/17 16:59 08/05/17 06:12 50 MG Magnesium Oxide (Mag-Ox Tab) 400 mg DAILY PO 08/04/17 09:00 09/03/17 08:59 08/05/17 07:47 400 MG Miscellaneous Information (Order Awaiting Action) 1 ea QS N/A 08/04/17 00:00 09/03/17 00:00 Pantoprazole Sodium (Protonix Tab) 40 mg DAILY PO 08/04/17 09:00 09/03/17 08:59 08/05/17 07:47 40 MG Insulin Human Regular (Insulin Humulin Regular U-500 Pump) 1 ea ACHS N/A 08/03/17 21:00 09/02/17 20:59 08/05/17 12:05 1 EA Insulin Human Regular (Humulin-R U-500) ACHS PRN SC 08/03/17 17:45 09/02/17 17:44 Al Hydroxide/Mg Hydroxide (Maalox Susp) 30 ml Q6H PRN PO 08/03/17 22:15 09/02/17 22:14 Ceftaroline Fosamil 600 mg/ Sodium Chloride 270 ml @ 250 mls/hr Q12H IV 08/04/17 12:00 08/14/17 10:14 08/05/17 12:29 250 MLS/HR Objective Vital Signs Date Time Temp Pulse Resp B/P (MAP) Pulse Ox O2 Delivery O2 Flow Rate FiO2 08/05/17 08:45 Room Air 08/05/17 07:06 36.7 66 19 148/87 (107) 95 Room Air 08/05/17 00:22 36.7 68 20 125/71 (89) 96 Room Air 08/05/17 00:00 Room Air 08/04/17 20:00 Room Air 08/04/17 16:30 Room Air 08/04/17 15:23 36.5 65 18 126/75 (92) 96 Physical Exam General Appearance: WD/WN, no apparent distress, + obese Eyes: normal inspection, EOMI, sclerae normal ENT: normal ENT inspection, hearing grossly normal, pharynx normal Neck: supple, no adenopathy, thyroid normal, trachea midline Respiratory/Chest: chest non-tender, lungs clear, normal breath sounds, no respiratory distress Cardiovascular: regular rate, rhythm, no gallop, no murmur Abdomen: normal bowel sounds, non tender, soft, no organomegaly Extremities: + inflammation (Left leg), + pedal edema, + swelling (Left greater than right) Neurologic/Psychiatric: alert, oriented x 3 Skin: normal color, warm/dry, + pertinent finding (Slightly improved erythema left lower extremity) Laboratory Results RUN DATE: 08/05/17 [facility] PAGE 1 RUN TIME: 0740 Specimen Inquiry PATIENT: STANISLAW ALCANTAR JR LOC: [id number] U # : [id number] AGE/SX: 51/M ROOM: [facility] REG : 08/03/[address]: Nikki Freitas DO : 1965 BED: 2 DIS : STATUS: ADM IN TLOC: SPEC #: [id number] JUSTIN: 08/03/17-1314 STATUS: RES REQ #: [id number] RECD: 08/03/17-[address]: Leatha Mckeon DO SOURCE: BLOOD ENTR: 08/03/17-[address] [facility] [address]: Sher[facility] ORDERED: BLOOD CULTURE Procedure Result Verified Site BLD CULT Preliminary 08/05/17-739 NO GROWTH TO DATE. Last 24 Hours Test 08/04/17 16:25 08/04/17 20:05 08/04/17 23:50 08/05/17 07:18 Bedside Glucose 106 mg/dl 80 mg/dl 93 mg/dl 243 mg/dl Test 08/05/17 07:35 08/05/17 11:25 White Blood Count 6.73 K/uL Red Blood Count 4.75 M/uL Hemoglobin 13.9 g/dL Hematocrit 41.6 % Mean Corpuscular Volume 87.6 fL Mean Corpuscular Hemoglobin 29.3 pg Mean Corpuscular Hemoglobin Concent 33.4 g/dl RDW Standard Deviation 48.1 fL RDW Coefficient of Variation 14.9 % Platelet Count 201 K/uL Mean Platelet Volume 9.6 fL Sodium Level 134 mmol/L Potassium Level 4.6 mmol/L Chloride Level 100 mmol/L Carbon Dioxide Level 24 mmol/L Anion Gap 9.0 mmol/L Blood Urea Nitrogen 30 mg/dl Creatinine 1.58 mg/dl Est Creatinine Clear Calc Drug Dose 88.2 ml/min Estimated GFR () 57.0 Estimated GFR (Non- 49.2 BUN/Creatinine Ratio 19.1 Random Glucose 249 mg/dl Calcium Level 8.9 mg/dl Magnesium Level 2.6 mg/dl Bedside Glucose 285 mg/dl Assessment and Plan Left lower extremity cellulitis in the setting of diabetes, peripheral vascular disease, severe lower extremity lymphedema and chronic venous stasis disease, with chronic left plantar ulcer which had been improving. Patient appears to have had early response to IV ceftaroline, will continue for at least another 12 :48 p.m. forty eight hours IV.
[2017-08-05 15:09] VITALS: BP 110/67; PULSE 66; TEMP 36.6; O2SAT 98
[2017-08-05 17:32] VITALS: O2SAT 95
[2017-08-05] MEDS: MOMETASONE FUROATE-FORMOTEROL (DULERA) 200mcg/5mcg per inh INH SCH (21:52)
[2017-08-06 00:28] VITALS: BP 156/81; PULSE 67; TEMP 36.3; O2SAT 95
[2017-08-06] MEDS: HEPARIN SOD 5000 UNIT/0.5 ML CARP SQ SCH ×3 (05:04→21:23)
[2017-08-06] MEDS: LEVOTHYROXINE 100 MCG TAB PO SCH (05:59)
[2017-08-06 07:22] VITALS: BP 110/71; PULSE 64; TEMP 36.5; O2SAT 96
[2017-08-06] MEDS: MOMETASONE FUROATE-FORMOTEROL (DULERA) 200mcg/5mcg per inh INH SCH ×2 (07:40→21:18)
[2017-08-06] MEDS: METOPROLOL SUCC 50MG EXT REL TAB PO SCH (07:40)
[2017-08-06] MEDS: MAGNESIUM OXIDE 400 MG TAB PO SCH (07:40)
[2017-08-06] MEDS: GABAPENTIN 300 MG CAP PO SCH ×3 (07:40→21:21)
[2017-08-06] MEDS: PANTOprazole SOD 40 MG TAB PO SCH (07:40)
[2017-08-06] MEDS: FLUTICASONE PROPIONATE NA SPR 16 GM BTL NAE SCH ×2 (07:40→21:19)
[2017-08-06] MEDS: ATORVASTATIN 40 MG TAB PO SCH (07:41)
[2017-08-06] MEDS: ASPIRIN 81 MG ECTAB PO SCH (07:41)
[2017-08-06] MEDS: SPIRONOLACTONE 25 MG TAB PO SCH (07:41)
[2017-08-06] MEDS: POTASSIUM CHLORIDE 20 MEQ TABCR PO SCH ×2 (07:41→21:20)
[2017-08-06] MEDS: AMIODARONE 200 MG TAB PO SCH (07:41)
[2017-08-06] MEDS: [UNRECOGNIZED DRUG - OTHER] SCH ×4 (07:42→21:00)
[2017-08-06] MEDS: BUMETANIDE 1 MG TAB PO SCH ×2 (07:42→17:30)
[2017-08-06 07:56] LABS: HEMATOCRIT 39.8 % (42-52); HEMOGLOBIN 13.1 g/dL (14.0-18.0); MEAN CELL VOLUME 88.1 fL (80-100); MEAN CORPUSCULAR HGB CONC 32.9 g/dl (32-36); MEAN PLATELET VOLUME 9.5 fL (7.4-10.4); PLATELET COUNT 231 K/uL (130-400); RED CELL DISTRIBUTION WIDTH CV 15.1 % (11.5-14.5); RED CELL DISTRIBUTION WIDTH SD 48.5 fL (36.4-46.3)
[2017-08-06 08:26] LABS: CALCIUM 8.9 mg/dl (8.5-10.1); CREATININE 1.65 mg/dl (0.60-1.40)
--- NOTE | 2017-08-06 09:25 | Wound Progress Note: Inpatient ---
Wound Progress Note Date of Service Aug 04, 2017. Subjective Pt evaluation today including: conversation w/ patient, physical exam, chart review Patient was recently admitted to [facility] for evaluation treatment of cellulitis sustained to his left lower extremity. Patient was recently seen in [facility] [place] in [facility] clinic outpatient center 4 days prior for an ulceration to his left foot. Patient states that following this visit he noticed that evening some redness around the knee area extending down his leg over the next few days. Patient has had a prior history of cellulitis in the extremity. Patient denies any increased pain swelling or drainage from the ulceration of his left foot. Patient currently denies any fever chills or night sweats. Patient denies any chest pain shortness of breath abdominal discomfort nausea or vomiting. Patient denies any other systemic complaints. Objective Vital Signs Date Time Temp Pulse Resp B/P (MAP) Pulse Ox O2 Delivery O2 Flow Rate FiO2 08/06/17 07:22 36.5 64 20 110/71 (84) 96 Room Air 08/06/17 00:28 36.3 67 20 156/81 (106) 95 Room Air 08/06/17 00:00 Room Air 08/05/17 17:32 95 Room Air 08/05/17 15:09 36.6 66 18 110/67 (81) 98 Room Air Physical Exam Notes: Patient demonstrates the presence of erythema with no significant tenderness to the left lower extremity from the knee distal. There is no significant tenderness or fluctuance noted in this area. No calf tenderness is noted. Chronic edema is present in the lower extremity essentially unchanged from prior visits. The ulceration of the lateral aspect of the left foot today shows some excess callus formation measuring. No central slough or eschar formation. 0.6 x 0.3 x 0.1 cm. no periwound erythema, active drainage or odor is present. Laboratory Results Last 24 Hours Test 08/05/17 11:25 08/05/17 16:18 08/06/17 00:23 08/06/17 07:39 Bedside Glucose 285 mg/dl 136 mg/dl 276 mg/dl White Blood Count 8.60 K/uL Red Blood Count 4.52 M/uL Hemoglobin 13.1 g/dL Hematocrit 39.8 % Mean Corpuscular Volume 88.1 fL Mean Corpuscular Hemoglobin 29.0 pg Mean Corpuscular Hemoglobin Concent 32.9 g/dl RDW Standard Deviation 48.5 fL RDW Coefficient of Variation 15.1 % Platelet Count 231 K/uL Mean Platelet Volume 9.5 fL Sodium Level 134 mmol/L Potassium Level mmol/L Chloride Level 99 mmol/L Carbon Dioxide Level 29 mmol/L Anion Gap 6.0 mmol/L Blood Urea Nitrogen 26 mg/dl Creatinine 1.65 mg/dl Est Creatinine Clear Calc Drug Dose 84.5 ml/min Estimated GFR () 54.1 Estimated GFR (Non- 46.7 BUN/Creatinine Ratio 15.8 Random Glucose 270 mg/dl Calcium Level 8.9 mg/dl Test 08/06/17 07:43 08/06/17 08:50 Bedside Glucose 257 mg/dl Assessment and Plan Assessment: Beckman grade 1 diabetic foot ulcer left foot Cellulitis left lower extremity resolving Plan: No debridement was indicated today. The site will be dressed with Aquacel Ag and gauze changed on a daily basis. Patient continues current antibiotic therapy. Patient will be evaluated as needed during his hospitalization followed up in the outpatient wound clinic upon discharge.
[2017-08-06] MEDS: CEFTAROLINE FOSAMIL INJ 600 MG in SODIUM CHLORIDE 0.9% 250ML 250 ML IV SCH ×2 (12:05→23:31)
--- NOTE | 2017-08-06 15:40 | Progress Note ---
Subjective Date of Service: Aug 06, 2017. Subjective Pt evaluation today including: conversation w/ patient, physical exam, lab review, review of studies, review of inpatient medication list Saw/examined the patient in room 262 LLE is improved; no pain, swelling is chronic and persistent No fevers/chills, no other issues to note today Problem List Medical Problems: (1) Bacteremia Status: Acute (2) Cellulitis Status: Acute (3) Failure of outpatient treatment Status: Acute (4) Folliculitis Status: Acute (5) Precordial chest pain Status: Acute (6) Pyelonephritis Status: Acute Review of Systems Constitutional: No fever, No chills Respiratory: No shortness of breath Cardiac: + edema, No chest pain Musculoskeletal: + swelling Medications Current Inpatient Medications Medications (Trade) Dose Ordered Sig/Pankaj Route Start Time Stop Time Status Last Admin Dose Admin Heparin Sodium (Porcine) (Heparin Sq 5000 Unit/0.5ml) 5,000 unit Q8 SQ 08/03/17 22:00 09/02/17 21:59 08/06/17 13:44 5,000 UNIT Acetaminophen (Tylenol Tab) 650 mg Q4H PRN PO 08/03/17 16:30 09/02/17 16:29 08/03/17 16:43 650 MG Polyethylene (Miralax Powder Packet) 17 gm DAILY PRN PO 08/03/17 16:30 09/02/17 16:29 Ondansetron HCl (Zofran Inj) 4 mg Q6H PRN IV 08/03/17 16:30 09/02/17 16:29 Glucose (Glucose 40% Gel) 15-30 GRAMS 15 GRAMS... UD PRN PO 08/03/17 16:45 09/02/17 16:44 Glucose (Glucose Chew Tab) 4-8 Tablets 4 Tabl... UD PRN PO 08/03/17 16:45 09/02/17 16:44 Dextrose (Dextrose 50% 50ML Syringe) 25-50ML OF 50% DW IV FOR... UD PRN IV 08/03/17 16:45 09/02/17 16:44 Glucagon (Glucagon Inj) 1 mg UD PRN SQ 08/03/17 16:45 09/02/17 16:44 Albuterol (Ventolin Hfa Inhaler) 2 puffs Q4H PRN INH 08/03/17 17:00 09/02/17 16:59 Amiodarone HCl (Cordarone Tab) 200 mg DAILY PO 08/04/17 09:00 09/03/17 08:59 08/06/17 07:41 200 MG Aspirin (Ecotrin Tab) 81 mg DAILY PO 08/04/17 09:00 09/03/17 08:59 08/06/17 07:41 81 MG Atorvastatin Calcium (Lipitor Tab) 80 mg DAILY PO 08/04/17 09:00 09/03/17 08:59 08/06/17 07:41 80 MG Bumetanide (Bumex Tab) 1 mg BID17 PO 08/03/17 21:00 09/02/17 20:59 Future hold 08/06/17 07:42 1 MG Fluticasone Propionate (Flonase Nasal [place]) 2 sprays BID DAIN 08/03/17 21:00 09/02/17 20:59 08/06/17 07:40 2 SPRAYS Gabapentin (Neurontin Cap) 300 mg TID PO 08/03/17 21:00 09/02/17 20:59 08/06/17 13:45 300 MG Levothyroxine Sodium (Synthroid Tab) 100 mcg DAILYBB PO 08/04/17 06:30 09/03/17 06:29 08/06/17 05:59 100 MCG Metoprolol Succinate (Toprol Xl Tab) 50 mg DAILY PO 08/04/17 09:00 09/03/17 08:59 08/06/17 07:40 50 MG Nitroglycerin (Nitrostat Tab) 0.4 mg PRN UT 08/03/17 17:00 09/02/17 16:59 Potassium Chloride (Klor-Con Tab) 40 meq BID PO 08/03/17 21:00 09/02/17 20:59 08/06/17 07:41 40 MEQ Spironolactone (Aldactone Tab) 25 mg QAM PO 08/04/17 09:00 09/03/17 08:59 Future hold 08/06/17 07:41 25 MG Tramadol HCl (Ultram Tab) 50 mg Q6H PRN PO 08/03/17 17:00 09/02/17 16:59 08/05/17 21:54 50 MG Magnesium Oxide (Mag-Ox Tab) 400 mg DAILY PO 08/04/17 09:00 09/03/17 08:59 08/06/17 07:40 400 MG Pantoprazole Sodium (Protonix Tab) 40 mg DAILY PO 08/04/17 09:00 09/03/17 08:59 08/06/17 07:40 40 MG Insulin Human Regular (Insulin Humulin Regular U-500 Pump) 1 ea ACHS N/A 08/03/17 21:00 09/02/17 20:59 08/06/17 12:05 1 EA Insulin Human Regular (Humulin-R U-500) ACHS PRN SC 08/03/17 17:45 09/02/17 17:44 Al Hydroxide/Mg Hydroxide (Maalox Susp) 30 ml Q6H PRN PO 08/03/17 22:15 09/02/17 22:14 Ceftaroline Fosamil 600 mg/ Sodium Chloride 270 ml @ 250 mls/hr Q12H IV 08/04/17 12:00 08/14/17 10:14 08/06/17 12:05 250 MLS/HR Mometasone Furoate/ Formoterol Fumar (Dulera) 2 ea BID INH 08/05/17 21:00 09/04/17 20:59 08/06/17 07:40 2 EA Objective Vital Signs Date Time Temp Pulse Resp B/P (MAP) Pulse Ox O2 Delivery O2 Flow Rate FiO2 08/06/17 08:30 Room Air 08/06/17 07:22 36.5 64 20 110/71 (84) 96 Room Air 08/06/17 00:28 36.3 67 20 156/81 (106) 95 Room Air 08/06/17 00:00 Room Air 08/05/17 17:32 95 Room Air 08/05/17 15:09 36.6 66 18 110/67 (81) 98 Room Air Physical Exam General Appearance: no apparent distress, + obese Extremities: + pedal edema, + swelling, + pertinent finding (+2 pedal edema, venous stasis dermatitis, erythema improving, edematous, less tender) Laboratory Results Last 24 Hours Test 08/05/17 16:18 08/05/17 20:22 08/06/17 00:23 08/06/17 07:39 Bedside Glucose 136 mg/dl 62 mg/dl 276 mg/dl White Blood Count 8.60 K/uL Red Blood Count 4.52 M/uL Hemoglobin 13.1 g/dL Hematocrit 39.8 % Mean Corpuscular Volume 88.1 fL Mean Corpuscular Hemoglobin 29.0 pg Mean Corpuscular Hemoglobin Concent 32.9 g/dl RDW Standard Deviation 48.5 fL RDW Coefficient of Variation 15.1 % Platelet Count 231 K/uL Mean Platelet Volume 9.5 fL Sodium Level 134 mmol/L Potassium Level mmol/L Chloride Level 99 mmol/L Carbon Dioxide Level 29 mmol/L Anion Gap 6.0 mmol/L Blood Urea Nitrogen 26 mg/dl Creatinine 1.65 mg/dl Est Creatinine Clear Calc Drug Dose 84.5 ml/min Estimated GFR () 54.1 Estimated GFR (Non- 46.7 BUN/Creatinine Ratio 15.8 Random Glucose 270 mg/dl Calcium Level 8.9 mg/dl Test 08/06/17 07:43 08/06/17 08:50 08/06/17 11:29 Bedside Glucose 257 mg/dl 156 mg/dl Potassium Level 4.3 mmol/L Assessment and Plan This is a 51 year old male with a past medical history of uncontrolled, insulin dependent diabetes mellitus type 2, hyperlipidemia, hypertension, CAD, ischemic cardiomyopathy and chronic systolic CHF with LV dysfunction s/p ICD insertion, CKD stage 3, morbid obesity, hx. of peripheral vascular disease; chronic venous stasis and hx. of vascular ulcerations, recurrent diabetic ulcers, recurrent cellulitic changes, hx. of noncompliance - presents with worsening left lower extremity cellulitis Left Lower Extremity Cellulitis Hx. of Venous Stasis Ulcerations in the setting of Diabetes Mellitus 08/06 - at this point, we can continue Teflaro - switch to PO in 1-2 days as per ID - clinically improved - wound care clinic f/u within one week with ID follow-up at the clinic 08/05 - appreciate ID input - continue Teflaro - cultures are pending 08/04 - patient with recurrent LLE cellulitis - had been on Augmentin as outpatient - sees Dr. Delacruz and Dr. 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 seeing outpatient cardiovascular surgical tech/financial reporting manager and weight management Ischemic Cardiomyopathy Chronic Systolic CHF Reduced LV Function, s/p ICD - last echo shows a reduced LVEF of around 30-35%, improved from previous - patient with ICD inserted - takes Bumex, Aldactone and Zaroxolyn three times weekly - will restart these medications Acute Kidney Injury superimposed on CKD stage 3 - back to baseline - creatinine baseline is around 1.5-1.6, presented with 2.0 - creat down to 1.8 - will restart diuretics due to swelling/edema of the LLE Hypothyroidism - continue Synthroid GERD - continue PPI NINA w/ Nocturnal CPAP Asthma - continue home inhalers DVT ppx - heparin sq FULL CODE
[2017-08-06 16:00] VITALS: O2SAT 98
--- NOTE | 2017-08-06 17:44 | Infectious Disease Progress Nt ---
Progress Note Date of Service Aug 06, 2017. Subjective Pt evaluation today including: conversation w/ patient, physical exam, chart review, lab review, review of studies, conversation w/ planning consultant, review of inpatient medication list Patient offering no new complaints today. Left leg pain improving steadily. Decrease in swelling and erythema. No fever or chills. Cultures remain negative. Tolerating antibiotics without apparent difficulty. All Other Systems: Reviewed and Negative Medications Current Inpatient Medications Medications (Trade) Dose Ordered Sig/Pankaj Route Start Time Stop Time Status Last Admin Dose Admin Heparin Sodium (Porcine) (Heparin Sq 5000 Unit/0.5ml) 5,000 unit Q8 SQ 08/03/17 22:00 09/02/17 21:59 08/06/17 13:44 5,000 UNIT Acetaminophen (Tylenol Tab) 650 mg Q4H PRN PO 08/03/17 16:30 09/02/17 16:29 08/03/17 16:43 650 MG Polyethylene (Miralax Powder Packet) 17 gm DAILY PRN PO 08/03/17 16:30 09/02/17 16:29 Ondansetron HCl (Zofran Inj) 4 mg Q6H PRN IV 08/03/17 16:30 09/02/17 16:29 Glucose (Glucose 40% Gel) 15-30 GRAMS 15 GRAMS... UD PRN PO 08/03/17 16:45 09/02/17 16:44 Glucose (Glucose Chew Tab) 4-8 Tablets 4 Tabl... UD PRN PO 08/03/17 16:45 09/02/17 16:44 Dextrose (Dextrose 50% 50ML Syringe) 25-50ML OF 50% DW IV FOR... UD PRN IV 08/03/17 16:45 09/02/17 16:44 Glucagon (Glucagon Inj) 1 mg UD PRN SQ 08/03/17 16:45 09/02/17 16:44 Albuterol (Ventolin Hfa Inhaler) 2 puffs Q4H PRN INH 08/03/17 17:00 09/02/17 16:59 Amiodarone HCl (Cordarone Tab) 200 mg DAILY PO 08/04/17 09:00 09/03/17 08:59 08/06/17 07:41 200 MG Aspirin (Ecotrin Tab) 81 mg DAILY PO 08/04/17 09:00 09/03/17 08:59 08/06/17 07:41 81 MG Atorvastatin Calcium (Lipitor Tab) 80 mg DAILY PO 08/04/17 09:00 09/03/17 08:59 08/06/17 07:41 80 MG Bumetanide (Bumex Tab) 1 mg BID17 PO 08/03/17 21:00 09/02/17 20:59 Future hold 08/06/17 17:30 1 MG Fluticasone Propionate (Flonase Nasal [place]) 2 sprays BID DAIN 08/03/17 21:00 09/02/17 20:59 08/06/17 07:40 2 SPRAYS Gabapentin (Neurontin Cap) 300 mg TID PO 08/03/17 21:00 09/02/17 20:59 08/06/17 13:45 300 MG Levothyroxine Sodium (Synthroid Tab) 100 mcg DAILYBB PO 08/04/17 06:30 09/03/17 06:29 08/06/17 05:59 100 MCG Metoprolol Succinate (Toprol Xl Tab) 50 mg DAILY PO 08/04/17 09:00 09/03/17 08:59 08/06/17 07:40 50 MG Nitroglycerin (Nitrostat Tab) 0.4 mg PRN UT 08/03/17 17:00 09/02/17 16:59 Potassium Chloride (Klor-Con Tab) 40 meq BID PO 08/03/17 21:00 09/02/17 20:59 08/06/17 07:41 40 MEQ Spironolactone (Aldactone Tab) 25 mg QAM PO 08/04/17 09:00 09/03/17 08:59 Future hold 08/06/17 07:41 25 MG Tramadol HCl (Ultram Tab) 50 mg Q6H PRN PO 08/03/17 17:00 09/02/17 16:59 08/05/17 21:54 50 MG Magnesium Oxide (Mag-Ox Tab) 400 mg DAILY PO 08/04/17 09:00 09/03/17 08:59 08/06/17 07:40 400 MG Pantoprazole Sodium (Protonix Tab) 40 mg DAILY PO 08/04/17 09:00 09/03/17 08:59 08/06/17 07:40 40 MG Insulin Human Regular (Insulin Humulin Regular U-500 Pump) 1 ea ACHS N/A 08/03/17 21:00 09/02/17 20:59 08/06/17 17:29 1 EA Insulin Human Regular (Humulin-R U-500) ACHS PRN SC 08/03/17 17:45 09/02/17 17:44 Al Hydroxide/Mg Hydroxide (Maalox Susp) 30 ml Q6H PRN PO 08/03/17 22:15 09/02/17 22:14 Ceftaroline Fosamil 600 mg/ Sodium Chloride 270 ml @ 250 mls/hr Q12H IV 08/04/17 12:00 08/14/17 10:14 08/06/17 12:05 250 MLS/HR Mometasone Furoate/ Formoterol Fumar (Dulera) 2 ea BID INH 08/05/17 21:00 09/04/17 20:59 08/06/17 07:40 2 EA Objective Vital Signs Date Time Temp Pulse Resp B/P (MAP) Pulse Ox O2 Delivery O2 Flow Rate FiO2 08/06/17 08:30 Room Air 08/06/17 07:22 36.5 64 20 110/71 (84) 96 Room Air 08/06/17 00:28 36.3 67 20 156/81 (106) 95 Room Air 08/06/17 00:00 Room Air Physical Exam General Appearance: WD/WN, no apparent distress, + obese Eyes: normal inspection, EOMI, sclerae normal ENT: normal ENT inspection, pharynx normal Neck: supple, no adenopathy, thyroid normal, trachea midline Respiratory/Chest: chest non-tender, lungs clear, normal breath sounds, no respiratory distress Cardiovascular: regular rate, rhythm, no gallop, no murmur Abdomen: normal bowel sounds, non tender, soft, no organomegaly Extremities: non-tender, no calf tenderness, normal capillary refill Neurologic/Psychiatric: alert, oriented x 3 Skin: normal color, no rash, + pertinent finding (Improving left leg cellulitis ) Lymphatic: no adenopathy Laboratory Results Last 24 Hours Test 08/05/17 20:22 08/06/17 00:23 08/06/17 07:39 08/06/17 07:43 Bedside Glucose 62 mg/dl 276 mg/dl 257 mg/dl White Blood Count 8.60 K/uL Red Blood Count 4.52 M/uL Hemoglobin 13.1 g/dL Hematocrit 39.8 % Mean Corpuscular Volume 88.1 fL Mean Corpuscular Hemoglobin 29.0 pg Mean Corpuscular Hemoglobin Concent 32.9 g/dl RDW Standard Deviation 48.5 fL RDW Coefficient of Variation 15.1 % Platelet Count 231 K/uL Mean Platelet Volume 9.5 fL Sodium Level 134 mmol/L Potassium Level mmol/L Chloride Level 99 mmol/L Carbon Dioxide Level 29 mmol/L Anion Gap 6.0 mmol/L Blood Urea Nitrogen 26 mg/dl Creatinine 1.65 mg/dl Est Creatinine Clear Calc Drug Dose 84.5 ml/min Estimated GFR () 54.1 Estimated GFR (Non- 46.7 BUN/Creatinine Ratio 15.8 Random Glucose 270 mg/dl Calcium Level 8.9 mg/dl Test 08/06/17 08:50 08/06/17 11:29 08/06/17 16:55 Potassium Level 4.3 mmol/L Bedside Glucose 156 mg/dl 82 mg/dl Assessment and Plan Left lower extremity cellulitis in the setting of diabetes, peripheral vascular disease, severe lower extremity lymphedema and chronic venous stasis disease, with chronic left plantar ulcer which had been improving. Patient appears to have had early response to IV ceftaroline, will continue for at least another 24 -48 p.m. forty eight hours.Will follow.
[2017-08-06 23:15] VITALS: BP 92/57; PULSE 68; TEMP 36.9; O2SAT 98
[2017-08-07] MEDS: LEVOTHYROXINE 100 MCG TAB PO SCH (06:10)
[2017-08-07] MEDS: HEPARIN SOD 5000 UNIT/0.5 ML CARP SQ SCH ×2 (06:11→14:29)
[2017-08-07 07:27] VITALS: BP 142/85; PULSE 66; TEMP 36.7; O2SAT 96
[2017-08-07] MEDS: FLUTICASONE PROPIONATE NA SPR 16 GM BTL NAE SCH (08:43)
[2017-08-07] MEDS: MOMETASONE FUROATE-FORMOTEROL (DULERA) 200mcg/5mcg per inh INH SCH (08:43)
[2017-08-07] MEDS: AMIODARONE 200 MG TAB PO SCH (08:43)
[2017-08-07] MEDS: ATORVASTATIN 40 MG TAB PO SCH (08:44)
[2017-08-07] MEDS: MAGNESIUM OXIDE 400 MG TAB PO SCH (08:44)
[2017-08-07] MEDS: METOPROLOL SUCC 50MG EXT REL TAB PO SCH (08:44)
[2017-08-07] MEDS: GABAPENTIN 300 MG CAP PO SCH ×2 (08:44→14:29)
[2017-08-07] MEDS: POTASSIUM CHLORIDE 20 MEQ TABCR PO SCH (08:45)
[2017-08-07] MEDS: BUMETANIDE 1 MG TAB PO SCH (08:45)
[2017-08-07] MEDS: ASPIRIN 81 MG ECTAB PO SCH (08:45)
[2017-08-07] MEDS: PANTOprazole SOD 40 MG TAB PO SCH (08:45)
[2017-08-07] MEDS: SPIRONOLACTONE 25 MG TAB PO SCH (08:46)
[2017-08-07] MEDS: [UNRECOGNIZED DRUG - OTHER] SCH ×2 (08:47→12:40)
[2017-08-07 08:56] LABS: HEMATOCRIT 39.1 % (42-52); HEMOGLOBIN 12.9 g/dL (14.0-18.0); MEAN CELL VOLUME 88.9 fL (80-100); MEAN CORPUSCULAR HEMOGLOBIN 29.3 pg (25-34); MEAN PLATELET VOLUME 9.3 fL (7.4-10.4); PLATELET COUNT 246 K/uL (130-400); RED CELL DISTRIBUTION WIDTH CV 15.2 % (11.5-14.5); RED CELL DISTRIBUTION WIDTH SD 49.2 fL (36.4-46.3); WHITE BLOOD COUNT 10.11 K/uL (4.8-10.8)
[2017-08-07 09:40] LABS: CALCIUM 8.8 mg/dl (8.5-10.1); CREATININE 1.73 mg/dl (0.60-1.40); POTASSIUM 4.2 mmol/L (3.5-5.1)
[2017-08-07] MEDS: CEFTAROLINE FOSAMIL INJ 600 MG in SODIUM CHLORIDE 0.9% 250ML 250 ML IV SCH ×2 (11:38→12:00)
--- NOTE | 2017-08-07 14:47 | Progress Note ---
Subjective Date of Service: Aug 07, 2017. Subjective Pt evaluation today including: conversation w/ patient, physical exam, lab review, review of studies, conversation w/ regulatory affairs consultant, review of inpatient medication list Saw/examined the patient in room 262 He's doing good today Not happy about not knowing what the plan is I explained things to him and he felt better Very eager to go home Problem List Medical Problems: (1) Bacteremia Status: Acute (2) Cellulitis Status: Acute (3) Failure of outpatient treatment Status: Acute (4) Folliculitis Status: Acute (5) Precordial chest pain Status: Acute (6) Pyelonephritis Status: Acute Review of Systems Constitutional: No fever, No chills Respiratory: No shortness of breath Cardiac: + edema, No chest pain Musculoskeletal: + swelling, No joint pain, No muscle pain Medications Current Inpatient Medications Medications (Trade) Dose Ordered Sig/Pankaj Route Start Time Stop Time Status Last Admin Dose Admin Heparin Sodium (Porcine) (Heparin Sq 5000 Unit/0.5ml) 5,000 unit Q8 SQ 08/03/17 22:00 09/02/17 21:59 08/07/17 14:29 5,000 UNIT Acetaminophen (Tylenol Tab) 650 mg Q4H PRN PO 08/03/17 16:30 09/02/17 16:29 08/03/17 16:43 650 MG Polyethylene (Miralax Powder Packet) 17 gm DAILY PRN PO 08/03/17 16:30 09/02/17 16:29 Ondansetron HCl (Zofran Inj) 4 mg Q6H PRN IV 08/03/17 16:30 09/02/17 16:29 Glucose (Glucose 40% Gel) 15-30 GRAMS 15 GRAMS... UD PRN PO 08/03/17 16:45 09/02/17 16:44 Glucose (Glucose Chew Tab) 4-8 Tablets 4 Tabl... UD PRN PO 08/03/17 16:45 09/02/17 16:44 Dextrose (Dextrose 50% 50ML Syringe) 25-50ML OF 50% DW IV FOR... UD PRN IV 08/03/17 16:45 09/02/17 16:44 Glucagon (Glucagon Inj) 1 mg UD PRN SQ 08/03/17 16:45 09/02/17 16:44 Albuterol (Ventolin Hfa Inhaler) 2 puffs Q4H PRN INH 08/03/17 17:00 09/02/17 16:59 Amiodarone HCl (Cordarone Tab) 200 mg DAILY PO 08/04/17 09:00 09/03/17 08:59 08/07/17 08:43 200 MG Aspirin (Ecotrin Tab) 81 mg DAILY PO 08/04/17 09:00 09/03/17 08:59 08/07/17 08:45 81 MG Atorvastatin Calcium (Lipitor Tab) 80 mg DAILY PO 08/04/17 09:00 09/03/17 08:59 08/07/17 08:44 80 MG Bumetanide (Bumex Tab) 1 mg BID17 PO 08/03/17 21:00 09/02/17 20:59 Future hold 08/07/17 08:45 1 MG Fluticasone Propionate (Flonase Nasal [place]) 2 sprays BID DAIN 08/03/17 21:00 09/02/17 20:59 08/07/17 08:43 2 SPRAYS Gabapentin (Neurontin Cap) 300 mg TID PO 08/03/17 21:00 09/02/17 20:59 08/07/17 14:29 300 MG Levothyroxine Sodium (Synthroid Tab) 100 mcg DAILYBB PO 08/04/17 06:30 09/03/17 06:29 08/07/17 06:10 100 MCG Metoprolol Succinate (Toprol Xl Tab) 50 mg DAILY PO 08/04/17 09:00 09/03/17 08:59 08/07/17 08:44 50 MG Nitroglycerin (Nitrostat Tab) 0.4 mg PRN UT 08/03/17 17:00 09/02/17 16:59 Potassium Chloride (Klor-Con Tab) 40 meq BID PO 08/03/17 21:00 09/02/17 20:59 08/07/17 08:45 40 MEQ Spironolactone (Aldactone Tab) 25 mg QAM PO 08/04/17 09:00 09/03/17 08:59 Future hold 08/07/17 08:46 25 MG Tramadol HCl (Ultram Tab) 50 mg Q6H PRN PO 08/03/17 17:00 09/02/17 16:59 08/05/17 21:54 50 MG Magnesium Oxide (Mag-Ox Tab) 400 mg DAILY PO 08/04/17 09:00 09/03/17 08:59 08/07/17 08:44 400 MG Pantoprazole Sodium (Protonix Tab) 40 mg DAILY PO 08/04/17 09:00 09/03/17 08:59 08/07/17 08:45 40 MG Insulin Human Regular (Insulin Humulin Regular U-500 Pump) 1 ea ACHS N/A 08/03/17 21:00 09/02/17 20:59 08/07/17 12:40 1 EA Insulin Human Regular (Humulin-R U-500) ACHS PRN SC 08/03/17 17:45 09/02/17 17:44 Al Hydroxide/Mg Hydroxide (Maalox Susp) 30 ml Q6H PRN PO 08/03/17 22:15 09/02/17 22:14 Ceftaroline Fosamil 600 mg/ Sodium Chloride 270 ml @ 250 mls/hr Q12H IV 08/04/17 12:00 08/14/17 10:14 08/06/17 23:31 250 MLS/HR Mometasone Furoate/ Formoterol Fumar (Dulera) 2 ea BID INH 08/05/17 21:00 09/04/17 20:59 08/07/17 08:43 2 EA Objective Vital Signs Date Time Temp Pulse Resp B/P (MAP) Pulse Ox O2 Delivery O2 Flow Rate FiO2 08/07/17 08:00 Room Air 08/07/17 07:27 36.7 66 20 142/85 (104) 96 08/07/17 00:00 Room Air 08/06/17 23:15 36.9 68 18 92/57 (69) 98 BiPAP 08/06/17 16:00 98 Room Air Physical Exam General Appearance: no apparent distress, + obese Respiratory/Chest: no respiratory distress, no accessory muscle use Cardiovascular: regular rate, rhythm, no murmur Extremities: + swelling, + pertinent finding (venous stasis dermatitis, non- tender, edematous) Laboratory Results Last 24 Hours Test 08/06/17 16:55 08/06/17 20:32 08/07/17 07:20 08/07/17 08:43 Bedside Glucose 82 mg/dl 101 mg/dl 146 mg/dl White Blood Count 10.11 K/uL Red Blood Count 4.40 M/uL Hemoglobin 12.9 g/dL Hematocrit 39.1 % Mean Corpuscular Volume 88.9 fL Mean Corpuscular Hemoglobin 29.3 pg Mean Corpuscular Hemoglobin Concent 33.0 g/dl RDW Standard Deviation 49.2 fL RDW Coefficient of Variation 15.2 % Platelet Count 246 K/uL Mean Platelet Volume 9.3 fL Sodium Level 134 mmol/L Potassium Level 4.2 mmol/L Chloride Level 103 mmol/L Carbon Dioxide Level 29 mmol/L Anion Gap 2.0 mmol/L Blood Urea Nitrogen 27 mg/dl Creatinine 1.73 mg/dl Est Creatinine Clear Calc Drug Dose 80.6 ml/min Estimated GFR () 51.1 Estimated GFR (Non- 44.1 BUN/Creatinine Ratio 15.5 Random Glucose 204 mg/dl Calcium Level 8.8 mg/dl Test 08/07/17 11:40 Bedside Glucose 194 mg/dl Assessment and Plan This is a 51 year old male with a past medical history of uncontrolled, insulin dependent diabetes mellitus type 2, hyperlipidemia, hypertension, CAD, ischemic cardiomyopathy and chronic systolic CHF with LV dysfunction s/p ICD insertion, CKD stage 3, morbid obesity, hx. of peripheral vascular disease; chronic venous stasis and hx. of vascular ulcerations, recurrent diabetic ulcers, recurrent cellulitic changes, hx. of noncompliance - presents with worsening left lower extremity cellulitis Left Lower Extremity Cellulitis Hx. of Venous Stasis Ulcerations in the setting of Diabetes Mellitus 08/07 - appreciate ID input - will d/c on Zyvox 600mg BID x2 weeks - case management consulted, $0 co-pay for this antibiotic - outpatient PCP and wound care clinic follow-up; ID to see at wound care clinic 08/06 - at this point, we can continue Teflaro - switch to PO in 1-2 days as per ID - clinically improved - wound care clinic f/u within one week with ID follow-up at the clinic 08/05 - appreciate ID input - continue Teflaro - cultures are pending 08/04 - patient with recurrent LLE cellulitis - had been on Augmentin as outpatient - sees Dr. Delacruz and Dr. 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 and weight management Ischemic Cardiomyopathy Chronic Systolic CHF Reduced LV Function, s/p ICD - last echo shows a reduced LVEF of around 30-35%, improved from previous - patient with ICD inserted - takes Bumex, Aldactone and Zaroxolyn three times weekly - will restart these medications Acute Kidney Injury superimposed on CKD stage 3 - back to baseline - creatinine baseline is around 1.5-1.6, presented with 2.0 - creat down to 1.8 - will restart diuretics due to swelling/edema of the LLE Hypothyroidism - continue Synthroid GERD - continue PPI NINA w/ Nocturnal CPAP Asthma - continue home inhalers DVT ppx - heparin sq FULL CODE
[2017-08-07] MEDS ORDERED: LINE1TAB7 PO (14:48)
--- NOTE | 2017-08-07 14:54 | Discharge Instructions ---
Discharge Instructions Date of Service Aug 07, 2017. Admission Reason for Admission: Cellulitis Discharge Discharge Diagnosis / Problem: Left lower extremity cellulitis/infection Discharge Goals Goal(s): Decrease discomfort, Improve function, Diagnostic testing, Therapeutic intervention Activity Recommendations Activity Limitations: resume your previous activity . Instructions / Follow-Up Instructions / Follow-Up Please follow-up with Dr. Sherry Maya on August 17 at 10:55AM - your appointment on August 12 is now canceled * You are to be discharged on Zyvox (antibiotic) twice a day for two weeks * Please follow-up with the wound care clinic within the week * Your Ha1c is > 10%, which means your diabetes is not well controlled - you will need to see an poultry picker who can manage your insulin pump Current Hospital Diet Patient's current hospital diet: AHA Diet (Heart Healthy), Diabetes Type 2 Diet Discharge Diet Recommended Diet: AHA Diet (Heart Healthy), Diabetes Type 2 Diet Pending Studies Studies pending at discharge: no Laboratory Results Hemoglobin A1c Test 08/04/17 06:59 Range/Units Estimated Average Glucose 243 mg/dl Hemoglobin A1c 10.1 H 4.5-5.6 % Medical Emergencies . Who to Call and When: Medical Emergencies: If at any time you feel your situation is an emergency, please call 911 immediately. . Non-Emergent Contact Non-Emergency issues call your: Primary Care Provider, Specialist (wound care/ ID) . . "Provider Documentation" section prepared by Nikki Freitas. .
[2017-08-07 14:55] VITALS: BP 142/85; PULSE 66; TEMP 36.7; O2SAT 96
--- NOTE | 2017-08-07 14:56 | Discharge Summary ---
Discharge Summary Date of Service Aug 07, 2017. Discharge Summary Admission Date: Aug 03, 2017 at 16:16 Discharge Date: Aug 07, 2017 Discharge Disposition: Home Principal Diagnosis: Left Lower Extremity Cellulitis Hx. of Venous Stasis Ulcerations in the setting of Diabetes Mellitus Uncontrolled, Insulin Dependent Diabetes Mellitus, type 2 Ischemic Cardiomyopathy Chronic Systolic CHF Reduced LV Function, s/p ICD Acute Kidney Injury superimposed on CKD stage 3 - back to baseline Hypothyroidism GERD NINA w/ Nocturnal CPAP Asthma Medication Reconciliation New Medications: Linezolid (Zyvox) 600 Mg Tab 600 MG PO BID for 14 Days, #28 TABS Continued Medications: Albuterol (Ventolin Hfa) 60 Puffs/5400 Mcg Aers 2 PUFFS INH Q4H PRN for SOB/Wheezing Amiodarone HCl (Amiodarone HCl) 200 Mg Tab 200 MG PO DAILY Aspirin (Aspirin) 81 Mg Tab 1 TAB PO DAILY for 30 Days, #30 TAB 3 Refills Atorvastatin (Lipitor) 80 Mg Tab 80 MG PO DAILY, #30 TAB 5 Refills Bumetanide (Bumetanide) 1 Mg Tab 1 MG PO BID Dulaglutide (Trulicity) 0.75 Mg/0.5 Ml Inj 0.5 ML INJ WK Fluticasone Propionate (Nasal) (Flonase Allergy Relief) 50 Mcg/Act Spr 2 SPRAYS DAIN BID Gabapentin (Gabapentin) 300 Mg Cap 300 MG PO TID, CAP Insulin Regular (Human) (Humulin R U-500 (Concentr) 500 Unit/Ml Inj SC UD INSULIN PUMP Meals: 8 units (40 units) with breakfast 8 units (40 units) with lunch 9 units (45 units) with evening meal Basal rates: 0104-2337 0.9units/hr (4.5units/hr) 1523-3127 1.6units/hr (8units/hr) 4953-7698 2units/hr (10units/hr) Levothyroxine Sodium (Levothyroxine Sodium) 100 Mcg Tab 1 TAB PO QAM, TAB Losartan Potassium (Losartan Potassium) 25 Mg Tab 25 MG PO DAILY Magnesium Oxide (Mg Supplement (Magnesium Oxide) 400 Mg Tab 400 MG PO DAILY, TAB Metolazone (Metolazone) 5 Mg Tab 5 MG PO Thursday/Thu/Thursday, #30 TABS 2 Refills Metoprolol Succ (Toprol Xl) (Toprol-Xl) 50 Mg Tabcr 1 TAB PO DAILY for 30 Days, #30 TAB 5 Refills Mometasone Furoate-Formoterol (Dulera 200/5 Mcg) 1 Aer Aer 2 PUFFS INH BID for 30 Days, #13 GM 5 Refills Nitroglycerin (Nitrostat) 0.4 Mg Sub 0.4 MG UT PRN, BTL Omeprazole (Prilosec) 20 Mg Capcr 20 MG PO DAILY, CAP Potassium Chloride (Klor-Con M20) 20 Meq Tabcr 40 MEQ PO BID, #120 DOSE 6 Refills Spironolactone (Aldactone) 25 Mg Tab 25 MG PO QAM, TAB Tramadol (Ultram) 50 Mg Tab 50 MG PO Q6H PRN for Pain, TAB Discontinued Medications: Amoxicillin & Pot Clavulanate (Augmentin 875-125 mg) 1 Tab Tab 875 MG PO BID for 30 Days, #60 TAB 3 Refills Admission Information HPI (per Admitting provider): Pt is 51 y/o M with PMH insulin-dependent DM II, CKD III, ischemic cardiomyopathy, history of VT, defibrillator, NINA on CPAP, HTN, hypothyroidism, depression presented to ER with complaint of left leg erythema discomfort. Patient states 4 days ago was wearing his GUCCI hose and noticed him to stop comfort to left leg. Patient states started to feel feverish and started to feel "ill". Yesterday nauseated and vomited once. Patient with decreased appetite past couple days. Patient noticed increased edema and erythema to left leg. Patient with history of chronic ulcer to left plantar foot, following with wound clinic and Dr. Plata-infectious disease. Patient currently on Augmentin. Wound culture left foot 06/26/17 E. coli, enterococcus faecalis, Corynebacterium. Patient reports wound has appeared to be healing and has not noticed any discharge or surrounding erythema to wound. Patient reports BS 150- 300's on past 2 days has been consistently in the 300s. Denies noting any open wounds to leg. Seen by PCP today noted to have temp of 100.4 F patient was sent to ER. Patient history partial right great toe amputation secondary to infection in the past. Chronic lower extremity edema patient denies any noted worsening except for left leg with associated erythema times couple of days. Denies diaphoresis, D/C, CURRY, dizziness, syncope, vision changes, neck pain, CP, SOB, orthopnea, palpitations, cough, sore throat, choking, otalgia, rhinorrhea, abdominal pain, urinary symptoms. Physical Exam (per Admitting): General Appearance: no apparent distress, + obese Head: normocephalic, atraumatic Eyes: normal inspection, sclerae normal ENT: hearing grossly normal, pharynx normal, + pertinent finding (Mucous membranes moist) Neck: supple, no JVD, trachea midline Respiratory/Chest: lungs clear, normal breath sounds, no respiratory distress, no accessory muscle use Cardiovascular: regular rate, rhythm, no murmur Abdomen/GI: normal bowel sounds, non tender, soft Extremities/Musculoskelatal: + pertinent finding (Left lower extremity: Erythema and edema noted from knee distally with tenderness to palpation, plantar foot with wound without surrounding erythema or discharge. Right lower extremity without erythema, nontender, right great toe partial amputation. Distal pulses palpable bilaterally.) Neurologic/Psych: alert, normal mood/affect, oriented x 3 Skin: warm/dry, + pertinent finding (See above extremities) Hospital Course This is a 51 year old male with a past medical history of uncontrolled, insulin dependent diabetes mellitus type 2, hyperlipidemia, hypertension, CAD, ischemic cardiomyopathy and chronic systolic CHF with LV dysfunction s/p ICD insertion, CKD stage 3, morbid obesity, hx. of peripheral vascular disease; chronic venous stasis and hx. of vascular ulcerations, recurrent diabetic ulcers, recurrent cellulitic changes, hx. of noncompliance - presents with worsening left lower extremity cellulitis Left Lower Extremity Cellulitis Hx. of Venous Stasis Ulcerations in the setting of Diabetes Mellitus 08/07 - appreciate ID input - will d/c on Zyvox 600mg BID x2 weeks - case management consulted, $0 co-pay for this antibiotic - outpatient PCP and wound care clinic follow-up; ID to see at wound care clinic 08/06 - at this point, we can continue Teflaro - switch to PO in 1-2 days as per ID - clinically improved - wound care clinic f/u within one week with ID follow-up at the clinic 08/05 - appreciate ID input - continue Teflaro - cultures are pending 08/04 - patient with recurrent LLE cellulitis - had been on Augmentin as outpatient - sees Dr. Delacruz and Dr. 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 and weight management Ischemic Cardiomyopathy Chronic Systolic CHF Reduced LV Function, s/p ICD - last echo shows a reduced LVEF of around 30-35%, improved from previous - patient with ICD inserted - takes Bumex, Aldactone and Zaroxolyn three times weekly - will restart these medications Acute Kidney Injury superimposed on CKD stage 3 - back to baseline - creatinine baseline is around 1.5-1.6, presented with 2.0 - creat down to 1.8 - will restart diuretics due to swelling/edema of the LLE Hypothyroidism - continue Synthroid GERD - continue PPI NINA w/ Nocturnal CPAP Asthma - continue home inhalers DVT ppx - heparin sq FULL CODE Total time spent on discharge = 50 minutes This includes examination of the patient, discharge planning, medication reconciliation, and communication with other providers. Discharge Instructions Please follow-up with Dr. Sherry Maya on August 17 at 10:55AM - your appointment on August 12 is now canceled * You are to be discharged on Zyvox (antibiotic) twice a day for two weeks * Please follow-up with the wound care clinic within the week * Your Ha1c is > 10%, which means your diabetes is not well controlled - you will need to see an feltmaker who can manage your insulin pump
--- NOTE | 2017-08-07 15:49 | Infectious Disease Progress Nt ---
Progress Note Date of Service Aug 07, 2017. Subjective Pt evaluation today including: conversation w/ patient, physical exam, chart review, lab review, review of studies, conversation w/ child development consultant, review of inpatient medication list Patient offers no new complaints today. Remains afebrile. Leg pain improved. Decrease in swelling and erythema of left leg. All Other Systems: Reviewed and Negative Medications Reported Home Medications Medications Dose Route/Sig Max Daily Dose Days Date Category Dose Instructions Zyvox (Linezolid) 600 Mg Tab 600 Mg PO BID 14 08/07/17 Rx Ventolin Hfa (Albuterol) 60 Puffs/5400 Mcg Aers 2 Puffs INH Q4H PRN 08/03/17 Reported Trulicity (Dulaglutide) 0.75 Mg/0.5 Ml Inj 0.5 Ml INJ WK 08/03/17 Reported Augmentin 875-125 mg (Amoxicillin & Pot Clavulanate) 1 Tab Tab 875 Mg PO BID 30 07/02/17 Rx Gabapentin 300 Mg Cap 300 Mg PO TID 03/25/17 Reported Magnesium Oxide (Magnesium Oxide (Mg Supplement) 400 Mg Tab 400 Mg PO DAILY 03/25/17 Reported Aspirin 81 Mg Tab 1 Tab PO DAILY 30 03/25/17 Reported Lipitor (Atorvastatin) 80 Mg Tab 80 Mg PO DAILY 02/28/17 Rx Metolazone 5 Mg Tab 5 Mg PO THURSDAY/THU/Thursday02/28/17 Rx Toprol-Xl (Metoprolol Succinate) 50 Mg Tabcr 1 Tab PO DAILY 30 02/28/17 Rx Klor-Con M20 (Potassium Chloride) 20 Meq Tabcr 40 Meq PO BID 02/02/17 Rx Bumetanide 1 Mg Tab 1 Mg PO BID 01/26/17 Reported Losartan Potassium 25 Mg Tab 25 Mg PO DAILY 01/26/17 Reported Amiodarone HCl 200 Mg Tab 200 Mg PO DAILY 01/26/17 Reported Prilosec (Omeprazole) 20 Mg Capcr 20 Mg PO DAILY 10/09/15 Reported Flonase Allergy Relief (Fluticasone Propionate (Nasal)) 50 Mcg/Act Spr 2 Sprays DAIN BID 10/09/15 Reported Dulera 200/5 Mcg (Mometasone Furoate-Formoterol) 1 Aer Aer 2 Puffs INH BID 30 10/09/15 Reported Nitrostat (Nitroglycerin) 0.4 Mg Sub 0.4 Mg UT PRN 12/7/15 Reported Humulin R U-500 (Concentr (Insulin Regular (Human)) 500 Unit/Ml Inj SC UD 04/02/15 Reported INSULIN PUMP Meals: 8 units (40 units) with breakfast 8 units (40 units) with lunch 9 units (45 units) with evening meal Basal rates: 5249-9300 0.9units/hr (4.5units/hr) 7424-6305 1.6units/hr (8units/hr) 2628-9625 2units/hr (10units/hr) Levothyroxine Sodium 100 Mcg Tab 1 Tab PO QAM 04/02/15 Reported Ultram (Tramadol HCl) 50 Mg Tab 50 Mg PO Q6H PRN 04/02/15 Reported Aldactone (Spironolactone) 25 Mg Tab 25 Mg PO QAM 05/02/12 Reported Objective Vital Signs Date Time Temp Pulse Resp B/P (MAP) Pulse Ox O2 Delivery O2 Flow Rate FiO2 08/07/17 14:55 36.7 66 20 96 Room Air 08/07/17 08:00 Room Air 08/07/17 07:27 36.7 66 20 142/85 (104) 96 08/07/17 00:00 Room Air 08/06/17 23:15 36.9 68 18 92/57 (69) 98 BiPAP 08/06/17 16:00 98 Room Air Physical Exam General Appearance: WD/WN, no apparent distress, + obese Eyes: normal inspection, EOMI, sclerae normal ENT: normal ENT inspection, pharynx normal Neck: supple, no adenopathy, thyroid normal, trachea midline Respiratory/Chest: chest non-tender, lungs clear, normal breath sounds, no respiratory distress Cardiovascular: regular rate, rhythm, no gallop, no murmur Abdomen: normal bowel sounds, non tender, soft, no organomegaly Extremities: no calf tenderness, + pertinent finding (Improving left leg swelling and erythema) Neurologic/Psychiatric: alert, oriented x 3 Skin: normal color, no rash, + pertinent finding (Improving left leg cellulitis ) Lymphatic: no adenopathy Laboratory Results Last 24 Hours Test 08/06/17 16:55 08/06/17 20:32 08/07/17 07:20 08/07/17 08:43 Bedside Glucose 82 mg/dl 101 mg/dl 146 mg/dl White Blood Count 10.11 K/uL Red Blood Count 4.40 M/uL Hemoglobin 12.9 g/dL Hematocrit 39.1 % Mean Corpuscular Volume 88.9 fL Mean Corpuscular Hemoglobin 29.3 pg Mean Corpuscular Hemoglobin Concent 33.0 g/dl RDW Standard Deviation 49.2 fL RDW Coefficient of Variation 15.2 % Platelet Count 246 K/uL Mean Platelet Volume 9.3 fL Sodium Level 134 mmol/L Potassium Level 4.2 mmol/L Chloride Level 103 mmol/L Carbon Dioxide Level 29 mmol/L Anion Gap 2.0 mmol/L Blood Urea Nitrogen 27 mg/dl Creatinine 1.73 mg/dl Est Creatinine Clear Calc Drug Dose 80.6 ml/min Estimated GFR () 51.1 Estimated GFR (Non- 44.1 BUN/Creatinine Ratio 15.5 Random Glucose 204 mg/dl Calcium Level 8.8 mg/dl Test 08/07/17 11:40 Bedside Glucose 194 mg/dl Assessment and Plan Left lower extremity cellulitis in the setting of diabetes, peripheral vascular disease, severe lower extremity lymphedema and chronic venous stasis disease, with chronic left plantar ulcer which had been improving. Patient appears to be improving, to transition to oral Rx with linezolid 600 mg bid for 2 weeks.
--- NOTE | 2017-08-10 13:36 | EDITING REQUIRED CODING QUERY ---
CODING QUERY To promote full compliance with coding requirements relating to patient care, provider participation is requested in all cases of corporate affairs manager uncertainty. Please assist us with the question(s) below: Coding Question(s): There is documentation of Left Lower Extremity Cellulitis in the setting of Diabetes Mellitus. Please specify below, the likely etiology of the cellulitis. It's caused by multiple issues including diabetes, peripheral vascular disease, etc. please see documentation ( ) Cellulitis likely due to Diabetes ( ) Cellulitis likely due to other: Specify ( ) Cellulitis with unknown likely etiology Physician's Response(s): Thank you Noy Rizo Principal Diagnosis: "_that condition established after study, to be chiefly responsible for occasioning the admission of the patient to the hospital for care." Co-Existing Principal Diagnosis: "_when two or more diagnoses equally meet the criteria for principal diagnosis as determined by the circumstances of admission, diagnostic work up, and/or therapy provided, and the Alphabetic Index, Tabular List, or another coding guideline does not provide sequencing direction, any one of the diagnoses may be sequenced first." "When the physician has documented what appears to be a current diagnosis in the body of the record, but has not included the diagnosis in the final diagnostic statement, the physician should be asked whether the diagnosis should be added." (Source [facility] 2 QTR90. p3-4)
== END 2017-08-07 16:45 | disposition home or self-care (01) | DRG 638 ==
LOC: C.EDB 11:07 → C.MS2W 16:16 → ENRESERV 16:37
PROVIDERS: ADMIT Internal Medicine; ATTEND Family Medicine
DX: E11.628 Type 2 diabetes mellitus with other skin complications (principal); L03.116 Cellulitis of left lower limb; I13.0 Hypertensive heart and chronic kidney disease with heart failure and stage 1 through stage 4 chronic kidney disease, or unspecified chronic kidney disease; I50.22 Chronic systolic (congestive) heart failure; Z68.43 Body mass index [BMI] 50.0-59.9, adult; E87.1 Hypo-osmolality and hyponatremia; E11.51 Type 2 diabetes mellitus with diabetic peripheral angiopathy without gangrene; N17.9 Acute kidney failure, unspecified; E11.621 Type 2 diabetes mellitus with foot ulcer; L97.529 Non-pressure chronic ulcer of other part of left foot with unspecified severity; E11.65 Type 2 diabetes mellitus with hyperglycemia; I87.8 Other specified disorders of veins; I89.0 Lymphedema, not elsewhere classified; I73.9 Peripheral vascular disease, unspecified; E11.42 Type 2 diabetes mellitus with diabetic polyneuropathy; E11.22 Type 2 diabetes mellitus with diabetic chronic kidney disease; N18.3 Chronic kidney disease, stage 3 (moderate); I25.5 Ischemic cardiomyopathy; I25.2 Old myocardial infarction; G47.33 Obstructive sleep apnea (adult) (pediatric); E03.9 Hypothyroidism, unspecified; K21.9 Gastro-esophageal reflux disease without esophagitis; J45.909 Unspecified asthma, uncomplicated; I25.10 Atherosclerotic heart disease of native coronary artery without angina pectoris; E78.5 Hyperlipidemia, unspecified; E66.01 Morbid (severe) obesity due to excess calories; Z51.81 Encounter for therapeutic drug level monitoring; Z79.899 Other long term (current) drug therapy; Z79.4 Long term (current) use of insulin; Z79.82 Long term (current) use of aspirin; Z96.41 Presence of insulin pump (external) (internal); Z95.810 Presence of automatic (implantable) cardiac defibrillator; Z88.8 Allergy status to other drugs, medicaments and biological substances; Z82.49 Family history of ischemic heart disease and other diseases of the circulatory system

== ENCOUNTER 2019-05-25 20:43 | Inpatient (IN) ==
[2019-05-25] MEDS ORDERED: SODIUM CHLORIDE 0.9% 1000ML 500 ML IV ONE ×2 (21:30→22:49)
--- NOTE | 2019-05-25 21:39 | Emergency Department Note ---
Entered by Lucie Lindsay acting as a scribe for History of Present Illness General Chief complaint: Hypoglycemia Stated complaint: LOW BLOOD SUGARD Time Seen by Provider: 05/25/19 21:09 Source: patient History of Present Illness Onset (ago): day(s) 3 Location: head, upper extremity and lower extremity Pain Consistency: + other (episode) Quality: + other (hypoglycemia) Associated symptoms: + other (Positive dizziness, muscle spasms, mid abdominal pain. Negative fever, increased leg swelling, missing any medication doses other than today, prior abdominal surgeries); no cough and no rash The patient is a 53 year old male who presents to the ED with complaints of hypoglycemia. He is an insulin dependent diabetic with an insulin Novolog pump. He takes trulicity with his last dose being 6 days ago. He reports for the past 3 days, his blood sugars have been low, with the lowest at 40. He states he is dizzy and his muscles are spasming. He notes he developed mid abdominal pain 1 week ago which is new. Pt denies a cough, fever, increased leg swelling, missing any medication doses other than today, rashes, prior abdominal surgeries. He notes he got his flu shot this year. Home Medications Home Medications Medication Instructions Recorded Confirmed Type aspirin 81 mg tablet,delayed 81 mg PO QAM 12/21/17 05/26/19 History release atorvastatin 80 mg tablet 80 mg PO QPM 12/21/17 05/26/19 History bumetanide 1 mg tablet 1 mg PO BID 12/21/17 05/26/19 History fluticasone propionate 50 2 sprays INTNAS BID gm 12/21/17 05/26/19 History mcg/actuation nasal spray,suspension levothyroxine 100 mcg capsule 100 mcg PO QAM 12/21/17 05/26/19 History losartan 25 mg tablet 25 mg PO QAM 12/21/17 05/26/19 History magnesium oxide 400 mg PO QAM cap 12/21/17 05/26/19 History metolazone 5 mg tablet 5 mg PO 3XWK tab 12/21/17 05/26/19 History metoprolol succinate 50 mg capsule 50 mg PO QPM 12/21/17 05/26/19 History sprinkle, ext. release 24 hr mometasone-formoterol HFA 200 2 puffs INH BID 12/21/17 05/26/19 History mcg-5 mcg/actuation aerosol inhaler nitroglycerin 0.4 mg sublingual 0.4 mg SL Q5M PRN 12/21/17 05/26/19 History tablet omeprazole 20 mg capsule,delayed 20 mg PO QPM 12/21/17 05/26/19 History release spironolactone 25 mg tablet 25 mg PO QAM 12/21/17 05/26/19 History tramadol 50 mg tablet 50 mg PO Q6H PRN 12/21/17 05/26/19 History amiodarone 100 mg PO QAM 10/20/18 05/26/19 History Trulicity 1.5 mg SQ WK 12/23/18 05/26/19 History ergocalciferol (vitamin D2) 5,000 unit PO WK 04/12/19 05/26/19 History gabapentin 300 mg PO TID 04/12/19 05/26/19 History hyoscyamine sulfate [Levsin] 0.125 mg PO TID 04/12/19 05/26/19 History potassium chloride [Klor-Con M20] 40 meq PO BID 04/12/19 05/26/19 History insulin aspart U-100 [Novolog 0 unit CONTINUOUS SUBCUTANEOUS 05/26/19 05/26/19 History U-100 Insulin aspart] INFUSION CONTINOUS Allergies Allergy/AdvReac Type Severity Reaction Status Date / Time benzonatate AdvReac Intermediate choking, Verified 05/26/19 00:26 gagging Past Med/Surg History Medical History Asthma Dulera BID, very rare albuterol inhaler use, "maybe once per year" Cardiac defibrillator in situ [employer], implanted 06/01/12 for low EF; most recent interrogation 11/09/18. Battery reserve adequate, but reaching PRISCILA, and patient to have re-checked in 1 month. H/O 10 discharges in one day 2/2 change in diuretic causing acute electrolyte imbalance and pVT. CKD (chronic kidney disease) stage 3, GFR 30-59 ml/min Baseline Cr 1.6-1.7 Diabetes mellitus with diabetic polyneuropathy Dyslipidemia GERD (gastroesophageal reflux disease) HTN (hypertension) Hx of myocardial infarction Silent NM. 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 Hx of osteomyelitis Toe, ~3yrs ago. Amputated. Hypothyroid (Chronic) Ischemic cardiomyopathy (Chronic) EF 30-34%, s/p ICD Mass LEFT FOOT Morbid obesity NINA on CPAP Peripheral edema Chronic B/L Ventricular tachycardia Surgical History H/O shoulder surgery History of colonoscopy History of sinus surgery Hx of amputation of lesser toe Hx of tonsillectomy Family History Sister Family history of diabetes mellitus 2 Grandmother (Maternal) Family history of diabetes mellitus Grandfather (Maternal) Family history of diabetes mellitus Other No family history of adverse response to anesthesia Social History Preferred Language: Palauan Communication Ability: Effective Corporate Risk Analyst Required: No Beliefs That Will Affect Care: None Current Living Situation: Spouse Feels Safe at Home: Yes Smoking Status: Never smoker Second Hand Exposure: Yes (/parents smoke) ; Hx Alcohol Use: Yes Alcohol type: hard liquor Hx Substance Use: No Review of Systems See HPI for pertinent positives & negatives. and A total of 10 systems reviewed and were otherwise negative Physical Exam Vital Signs Vital Signs - 24 hr 05/25/19 20:46 05/25/19 21:20 05/25/19 21:30 Temperature 38.2 C H Temperature Source Oral Pulse Rate 88 83 87 Pulse Rate from SpO2 Sensor 84 Pulse Rhythm Regular Pulse Strength Normal Respiratory Rate 20 20 31 H Respiratory Effort / Characteristics Non-Labored Spontaneous Respiratory Depth Normal Respiratory Pattern Regular Blood Pressure 139/79 Blood Pressure Mean 99 Blood Pressure Position Sitting Pulse Oximetry 95 91 Oxygen Delivery Method Room Air Sepsis Recent Fever Within 48 Hours Yes Sepsis New/Unexplained Change in Mental Status No Sepsis Action Taken by Nursing No Action Required 05/25/19 21:40 05/25/19 21:50 05/25/19 21:52 Temperature Temperature Source Pulse Rate 73 82 85 Pulse Rate from SpO2 Sensor 83 84 85 Pulse Rhythm Pulse Strength Respiratory Rate 18 32 H 27 H Respiratory Effort / Characteristics Respiratory Depth Respiratory Pattern Blood Pressure 86/60 L Blood Pressure Mean 69 Blood Pressure Position Pulse Oximetry 96 95 94 Oxygen Delivery Method Sepsis Recent Fever Within 48 Hours Sepsis New/Unexplained Change in Mental Status Sepsis Action Taken by Nursing 05/25/19 21:54 05/25/19 21:57 05/25/19 21:58 Temperature Temperature Source Pulse Rate 85 82 Pulse Rate from SpO2 Sensor 85 83 Pulse Rhythm Pulse Strength Respiratory Rate 32 H 32 H Respiratory Effort / Characteristics Respiratory Depth Respiratory Pattern Blood Pressure 97/66 L Blood Pressure Mean 84 Blood Pressure Position Pulse Oximetry 96 91 94 Oxygen Delivery Method Room Air Sepsis Recent Fever Within 48 Hours Sepsis New/Unexplained Change in Mental Status Sepsis Action Taken by Nursing 05/25/19 22:00 05/25/19 22:10 05/25/19 22:26 Temperature Temperature Source Pulse Rate 84 84 89 Pulse Rate from SpO2 Sensor 84 89 Pulse Rhythm Pulse Strength Respiratory Rate 34 H 28 H 25 H Respiratory Effort / Characteristics Respiratory Depth Respiratory Pattern Blood Pressure Blood Pressure Mean Blood Pressure Position Pulse Oximetry 96 94 Oxygen Delivery Method Sepsis Recent Fever Within 48 Hours Sepsis New/Unexplained Change in Mental Status Sepsis Action Taken by Nursing 05/25/19 22:30 05/25/19 22:40 05/25/19 22:47 Temperature Temperature Source Pulse Rate 86 84 84 Pulse Rate from SpO2 Sensor 86 85 85 Pulse Rhythm Pulse Strength Respiratory Rate 33 H 33 H 34 H Respiratory Effort / Characteristics Respiratory Depth Respiratory Pattern Blood Pressure 135/60 Blood Pressure Mean 102 Blood Pressure Position Pulse Oximetry 94 94 94 Oxygen Delivery Method Sepsis Recent Fever Within 48 Hours Sepsis New/Unexplained Change in Mental Status Sepsis Action Taken by Nursing 05/25/19 22:48 05/25/19 22:50 05/25/19 23:00 Temperature Temperature Source Pulse Rate 84 84 84 Pulse Rate from SpO2 Sensor 84 84 86 Pulse Rhythm Pulse Strength Respiratory Rate 34 H 32 H 31 H Respiratory Effort / Characteristics Respiratory Depth Respiratory Pattern Blood Pressure Blood Pressure Mean Blood Pressure Position Pulse Oximetry 95 93 93 Oxygen Delivery Method Sepsis Recent Fever Within 48 Hours Sepsis New/Unexplained Change in Mental Status Sepsis Action Taken by Nursing 05/25/19 23:10 05/25/19 23:18 05/25/19 23:20 Temperature Temperature Source Pulse Rate 85 85 84 Pulse Rate from SpO2 Sensor 85 Pulse Rhythm Pulse Strength Respiratory Rate 32 H 18 26 H Respiratory Effort / Characteristics Respiratory Depth Respiratory Pattern Blood Pressure 129/55 L Blood Pressure Mean 65 Blood Pressure Position Pulse Oximetry 94 Oxygen Delivery Method Sepsis Recent Fever Within 48 Hours Sepsis New/Unexplained Change in Mental Status Sepsis Action Taken by Nursing 05/25/19 23:30 05/25/19 23:31 05/25/19 23:40 Temperature Temperature Source Pulse Rate 84 83 82 Pulse Rate from SpO2 Sensor 79 83 Pulse Rhythm Pulse Strength Respiratory Rate 25 H 28 H 21 Respiratory Effort / Characteristics Respiratory Depth Respiratory Pattern Blood Pressure Blood Pressure Mean Blood Pressure Position Pulse Oximetry 93 90 Oxygen Delivery Method Sepsis Recent Fever Within 48 Hours Sepsis New/Unexplained Change in Mental Status Sepsis Action Taken by Nursing 05/25/19 23:42 Temperature Temperature Source Pulse Rate 83 Pulse Rate from SpO2 Sensor 87 Pulse Rhythm Pulse Strength Respiratory Rate 31 H Respiratory Effort / Characteristics Respiratory Depth Respiratory Pattern Blood Pressure 129/57 L Blood Pressure Mean 79 Blood Pressure Position Pulse Oximetry 90 Oxygen Delivery Method Sepsis Recent Fever Within 48 Hours Sepsis New/Unexplained Change in Mental Status Sepsis Action Taken by Nursing GENERAL: The patient is listless and slow to respond to questions. He does respond appropriately. EYES: The conjunctivae are clear. The pupils are round and reactive. EARS, NOSE, MOUTH AND THROAT: The nose is without any evidence of any deformity. Mucous membranes are dry. NECK: The neck is nontender and supple. RESPIRATORY: Shallow respirations were noted. There were rales at the left base with diminished breath sounds at the right base. CARDIOVASCULAR: Regular rate and rhythm noted there no murmurs rubs or gallops normal S1 normal S2. GASTROINTESTINAL: The abdomen is soft. Abdomen is nontender. MUSCULOSKELETAL/EXTREMITIES: There is no evidence of gross deformity full range of motion is noted in the hips and shoulders. SKIN: There is no obvious evidence of any rash. Pedal edema was noted bilaterally. NEUROLOGIC: Patient is oriented to person place and situation. Strength was diminished but symmetric. Course Course 2125: Past medical records reviewed. The patient was evaluated in room C3. A complete history and physical exam was performed. 2251: I reevaluated the patient at this time. I informed him of the treatment plan. He is in agreement. 2259: Discuss[facility] the patient's case [facility] [place] The patient will be evaluated for further management. Administered Medications Discontinued Medications Acetaminophen (Tylenol) 650 mg PO NOW STA Stop: 05/25/19 23:01 Last Admin: 05/25/19 23:17 Dose: 650 mg Documented by: [id number] Sodium Chloride (Nss 1000ml) 500 mls @ 999 mls/hr IV .Q31M ONE Stop: 05/25/19 22:00 Last Infusion: 05/25/19 22:36 Dose: 0 mls/hr Documented by: [id number] Admin: 05/25/19 21:54 Dose: 999 mls/hr Documented by: [id number] Magnesium Sulfate/Dextrose (Magnesium Sulfate / D5w) 1 gm in 100 mls @ 100 mls/hr IV Q1H MATT Stop: 05/26/19 00:14 Last Infusion: 05/26/19 00:44 Dose: 0 mls/hr Documented by: [id number] Admin: 05/25/19 23:43 Dose: 100 mls/hr Documented by: [id number] Infusion: 05/25/19 23:42 Dose: 0 mls/hr Documented by: [id number] Admin: 05/25/19 22:43 Dose: 100 mls/hr Documented by: [id number] Sodium Chloride (Nss 1000ml) 500 mls @ 999 mls/hr IV .Q31M ONE Stop: 05/25/19 23:19 Last Infusion: 05/26/19 00:00 Dose: 0 mls/hr Documented by: [id number] Admin: 05/25/19 23:20 Dose: 999 mls/hr Documented by: [id number] Piperacillin Sod/Tazobactam Sod (Zosyn) 4.5 gm in 120 mls @ 240 mls/hr IV NOW ONE Stop: 05/25/19 23:18 Last Infusion: 05/26/19 00:00 Dose: 0 mls/hr Documented by: [id number] Admin: 05/25/19 23:16 Dose: 240 mls/hr Documented by: [id number] Medical Decision Making Differential Diagnosis Differential diagnosis: Etiologies such as metabolic, infection, hypo/hyperglycemia, electrolyte abnormalities, cardiac sources, intracerebral event, toxicologic, neurologic, as well as others were entertained. Medical Records Attestation: I reviewed the patient's medical records. Home Medications Current Medication List: was personally reviewed by me Laboratory Data Attestation: I reviewed the patient's lab results. Result diagrams: 05/25/19 21:13 05/25/19 21:13 Lab Results 05/25/19 05/25/19 05/25/19 Range/Units 20:50 21:13 21:13 WBC 33.40 H* (4.8-10.8) K/uL RBC 4.90 (4.7-6.1) M/uL Hgb 15.0 (14.0-18.0) g/dL Hct 44.5 (42-52) % MCV 90.8 (80-100) fL MCH 30.6 (25-34) pg MCHC 33.7 (32-36) g/dL RDW Std Deviation 50.8 H (36.4-46.3) fL RDW Coeff of Мария 15.3 H (11.5-14.5) % Plt Count 173 (130-400) K/uL MPV 10.9 H (7.4-10.4) fL Neutrophils % (Manual) 96.5 % Lymphocytes % (Manual) 0.9 % Monocytes % (Manual) 2.6 % Neutrophils # (Manual) 32.23 H (1.4-6.5) K/uL Total Absolute Neuts 32.23 H (1.4-6.5) K/uL Lymphocytes # (Manual) 0.30 L (1.2-3.4) K/uL Total Abs Lymphocytes 0.30 L (1.2-3.4) K/uL Monocytes # (Manual) 0.87 H (0.11-0.59) K/uL PT 11.9 (9.0-12.0) Seconds INR 1.2 H (0.9-1.1) APTT 28.3 (21.0-31.0) Seconds PTT Ratio 1.0 VBG pH (7.36-7.41) VBG pCO2 (38-50) mmHg VBG pO2 mmHg VBG HCO3 mmol/L VBG O2 Saturation % VBG Base Excess mEq/L Barometric Pressure mm/Hg Sodium (136-145) mmol/L Potassium (3.5-5.1) mmol/L Chloride (98-107) mmol/L Carbon Dioxide (21-32) mmol/L Anion Gap (3-11) BUN (7-18) mg/dl Creatinine (0.6-1.4) mg/dl Est Cr Clr Drug Dosing ml/min Est GFR ( Amer) Est GFR (Non-Af Amer) BUN/Creatinine Ratio (10-20) Glucose (70-99) mg/dl POC Glucose 204 H (70-99) mg/dl Lactate (0.4-2.0) mmol/L Calcium (8.5-10.1) mg/dl Magnesium (1.8-2.4) mg/dl Total Bilirubin (0.2-1) mg/dl AST (15-37) U/L ALT (12-78) U/L Alkaline Phosphatase (45-117) U/L Troponin I (0-0.045) ng/ml Total Protein (6.4-8.2) gm/dl Albumin (3.4-5.0) gm/dl Globulin (2.5-4.0) gm/dl Albumin/Globulin Ratio (0.9-2) Procalcitonin (0-0.5) ng/ml Urine Color Urine Appearance (Clear) Urine pH (4.5-7.5) Ur Specific [place] (1.000-1.030) Urine Protein (Negative) Urine Glucose (UA) (Negative) Urine Ketones (Negative) Urine Blood (Negative) Urine Nitrite (Negative) Urine Bilirubin (Negative) Urine Urobilinogen (Negative) Ur Leukocyte Esterase (Negative) Urine WBC (Auto) (0-5) /hpf Urine RBC (Auto) (0-4) /hpf U Hyaline Cast (Auto) (0-5) /lpf U Epithel Cells (Auto) (0-5) /lpf Urine Bacteria (Auto) (Negative) Influenza Type A (PCR) (Neg) Influenza Type B (PCR) (Neg) 05/25/19 05/25/19 05/25/19 Range/Units 21:13 21:13 21:52 WBC (4.8-10.8) K/uL RBC (4.7-6.1) M/uL Hgb (14.0-18.0) g/dL Hct (42-52) % MCV (80-100) fL MCH (25-34) pg MCHC (32-36) g/dL RDW Std Deviation (36.4-46.3) fL RDW Coeff of Мария (11.5-14.5) % Plt Count (130-400) K/uL MPV (7.4-10.4) fL Neutrophils % (Manual) % Lymphocytes % (Manual) % Monocytes % (Manual) % Neutrophils # (Manual) (1.4-6.5) K/uL Total Absolute Neuts (1.4-6.5) K/uL Lymphocytes # (Manual) (1.2-3.4) K/uL Total Abs Lymphocytes (1.2-3.4) K/uL Monocytes # (Manual) (0.11-0.59) K/uL PT (9.0-12.0) Seconds INR (0.9-1.1) APTT (21.0-31.0) Seconds PTT Ratio VBG pH (7.36-7.41) VBG pCO2 (38-50) mmHg VBG pO2 mmHg VBG HCO3 mmol/L VBG O2 Saturation % VBG Base Excess mEq/L Barometric Pressure mm/Hg Sodium 131 L (136-145) mmol/L Potassium 4.2 (3.5-5.1) mmol/L Chloride 96 L (98-107) mmol/L Carbon Dioxide 27 (21-32) mmol/L Anion Gap 8.0 (3-11) BUN 51 H (7-18) mg/dl Creatinine 2.75 H (0.6-1.4) mg/dl Est Cr Clr Drug Dosing 50.9 ml/min Est GFR ( Amer) 28.8 Est GFR (Non-Af Amer) 24.8 BUN/Creatinine Ratio 18.5 (10-20) Glucose 237 H (70-99) mg/dl POC Glucose (70-99) mg/dl Lactate (0.4-2.0) mmol/L Calcium 9.5 (8.5-10.1) mg/dl Magnesium 1.4 L (1.8-2.4) mg/dl Total Bilirubin 1.1 H (0.2-1) mg/dl AST 37 (15-37) U/L ALT 27 (12-78) U/L Alkaline Phosphatase 94 (45-117) U/L Troponin I 0.130 H* (0-0.045) ng/ml Total Protein 8.1 (6.4-8.2) gm/dl Albumin 3.3 L (3.4-5.0) gm/dl Globulin 4.8 H (2.5-4.0) gm/dl Albumin/Globulin Ratio 0.7 L (0.9-2) Procalcitonin 30.87 H (0-0.5) ng/ml Urine Color Urine Appearance (Clear) Urine pH (4.5-7.5) Ur Specific [place] (1.000-1.030) Urine Protein (Negative) Urine Glucose (UA) (Negative) Urine Ketones (Negative) Urine Blood (Negative) Urine Nitrite (Negative) Urine Bilirubin (Negative) Urine Urobilinogen (Negative) Ur Leukocyte Esterase (Negative) Urine WBC (Auto) (0-5) /hpf Urine RBC (Auto) (0-4) /hpf U Hyaline Cast (Auto) (0-5) /lpf U Epithel Cells (Auto) (0-5) /lpf Urine Bacteria (Auto) (Negative) Influenza Type A (PCR) Neg for Influ A (Neg) Influenza Type B (PCR) Neg for Influ B (Neg) 05/25/19 05/25/19 05/25/19 Range/Units 21:53 21:53 23:56 WBC (4.8-10.8) K/uL RBC (4.7-6.1) M/uL Hgb (14.0-18.0) g/dL Hct (42-52) % MCV (80-100) fL MCH (25-34) pg MCHC (32-36) g/dL RDW Std Deviation (36.4-46.3) fL RDW Coeff of Мария (11.5-14.5) % Plt Count (130-400) K/uL MPV (7.4-10.4) fL Neutrophils % (Manual) % Lymphocytes % (Manual) % Monocytes % (Manual) % Neutrophils # (Manual) (1.4-6.5) K/uL Total Absolute Neuts (1.4-6.5) K/uL Lymphocytes # (Manual) (1.2-3.4) K/uL Total Abs Lymphocytes (1.2-3.4) K/uL Monocytes # (Manual) (0.11-0.59) K/uL PT (9.0-12.0) Seconds INR (0.9-1.1) APTT (21.0-31.0) Seconds PTT Ratio VBG pH 7.40 (7.36-7.41) VBG pCO2 45 (38-50) mmHg VBG pO2 29 mmHg VBG HCO3 27 mmol/L VBG O2 Saturation < 60.0 % VBG Base Excess 2.0 mEq/L Barometric Pressure 736.1 mm/Hg Sodium (136-145) mmol/L Potassium (3.5-5.1) mmol/L Chloride (98-107) mmol/L Carbon Dioxide (21-32) mmol/L Anion Gap (3-11) BUN (7-18) mg/dl Creatinine (0.6-1.4) mg/dl Est Cr Clr Drug Dosing ml/min Est GFR ( Amer) Est GFR (Non-Af Amer) BUN/Creatinine Ratio (10-20) Glucose (70-99) mg/dl POC Glucose (70-99) mg/dl Lactate 2.9 H* (0.4-2.0) mmol/L Calcium (8.5-10.1) mg/dl Magnesium (1.8-2.4) mg/dl Total Bilirubin (0.2-1) mg/dl AST (15-37) U/L ALT (12-78) U/L Alkaline Phosphatase (45-117) U/L Troponin I (0-0.045) ng/ml Total Protein (6.4-8.2) gm/dl Albumin (3.4-5.0) gm/dl Globulin (2.5-4.0) gm/dl Albumin/Globulin Ratio (0.9-2) Procalcitonin (0-0.5) ng/ml Urine Color Dark Yellow Urine Appearance Clear (Clear) Urine pH 5.0 (4.5-7.5) Ur Specific [place] 1.021 (1.000-1.030) Urine Protein 1+ H (Negative) Urine Glucose (UA) Negative (Negative) Urine Ketones Trace H (Negative) Urine Blood 1+ H (Negative) Urine Nitrite Negative (Negative) Urine Bilirubin Negative (Negative) Urine Urobilinogen Negative (Negative) Ur Leukocyte Esterase Negative (Negative) Urine WBC (Auto) 1-5 (0-5) /hpf Urine RBC (Auto) 5-10 H (0-4) /hpf U Hyaline Cast (Auto) 10-30 H (0-5) /lpf U Epithel Cells (Auto) 20-30 H (0-5) /lpf Urine Bacteria (Auto) Negative (Negative) Influenza Type A (PCR) (Neg) Influenza Type B (PCR) (Neg) 05/26/19 05/26/19 Range/Units 00:02 00:02 WBC (4.8-10.8) K/uL RBC (4.7-6.1) M/uL Hgb (14.0-18.0) g/dL Hct (42-52) % MCV (80-100) fL MCH (25-34) pg MCHC (32-36) g/dL RDW Std Deviation (36.4-46.3) fL RDW Coeff of Мария (11.5-14.5) % Plt Count (130-400) K/uL MPV (7.4-10.4) fL Neutrophils % (Manual) % Lymphocytes % (Manual) % Monocytes % (Manual) % Neutrophils # (Manual) (1.4-6.5) K/uL Total Absolute Neuts (1.4-6.5) K/uL Lymphocytes # (Manual) (1.2-3.4) K/uL Total Abs Lymphocytes (1.2-3.4) K/uL Monocytes # (Manual) (0.11-0.59) K/uL PT (9.0-12.0) Seconds INR (0.9-1.1) APTT (21.0-31.0) Seconds PTT Ratio VBG pH (7.36-7.41) VBG pCO2 (38-50) mmHg VBG pO2 mmHg VBG HCO3 mmol/L VBG O2 Saturation % VBG Base Excess mEq/L Barometric Pressure mm/Hg Sodium (136-145) mmol/L Potassium (3.5-5.1) mmol/L Chloride (98-107) mmol/L Carbon Dioxide (21-32) mmol/L Anion Gap (3-11) BUN (7-18) mg/dl Creatinine (0.6-1.4) mg/dl Est Cr Clr Drug Dosing ml/min Est GFR ( Amer) Est GFR (Non-Af Amer) BUN/Creatinine Ratio (10-20) Glucose (70-99) mg/dl POC Glucose (70-99) mg/dl Lactate 3.0 H* (0.4-2.0) mmol/L Calcium (8.5-10.1) mg/dl Magnesium (1.8-2.4) mg/dl Total Bilirubin (0.2-1) mg/dl AST (15-37) U/L ALT (12-78) U/L Alkaline Phosphatase (45-117) U/L Troponin I 0.123 H* (0-0.045) ng/ml Total Protein (6.4-8.2) gm/dl Albumin (3.4-5.0) gm/dl Globulin (2.5-4.0) gm/dl Albumin/Globulin Ratio (0.9-2) Procalcitonin (0-0.5) ng/ml Urine Color Urine Appearance (Clear) Urine pH (4.5-7.5) Ur Specific [place] (1.000-1.030) Urine Protein (Negative) Urine Glucose (UA) (Negative) Urine Ketones (Negative) Urine Blood (Negative) Urine Nitrite (Negative) Urine Bilirubin (Negative) Urine Urobilinogen (Negative) Ur Leukocyte Esterase (Negative) Urine WBC (Auto) (0-5) /hpf Urine RBC (Auto) (0-4) /hpf U Hyaline Cast (Auto) (0-5) /lpf U Epithel Cells (Auto) (0-5) /lpf Urine Bacteria (Auto) (Negative) Influenza Type A (PCR) (Neg) Influenza Type B (PCR) (Neg) Imaging Data Radiologist's Impression: Radiology results as stated below per my review and the radiologist's interpretation: XR chest 1V portable HISTORY: SEPSIS COMPARISON: Chest 03/25/2017. FINDINGS: No pneumothorax. No pleural effusions. The heart remains mildly enlarged. The left-sided single lead pacemaker/defibrillator. Interstitial vascular thickening consistent with mild pulmonary edema. This has slightly progressed. IMPRESSION: Cardiomegaly with mild interstitial pulmonary edema. ACT 112: Negative or not required by law. Electronically signed by: Huey Thorne M.D. 05/25/2019 10:13 PM ABDOMEN AND PELVIS CT WITHOUT CONTRAST CT DOSE: 2177.52 mGy.cm HISTORY: Generalized abdominal PAIN AND LOW bsg TECHNIQUE: Multiaxial CT images of the abdomen and pelvis were performed without contrast. A dose lowering technique was utilized adhering to the principles of ALARA. COMPARISON STUDY: Abdomen and pelvis CT 12/05/2010. FINDINGS: A few bibasilar linear densities consistent with subsegmental atelectasis. A pacemaker wire is noted. No pneumoperitoneum. No pneumatosis. No suspicious lytic or blastic osseous lesions. The unenhanced liver, gallbladder, spleen, adrenal glands, and pancreas are unremarkable. Mild bilateral perinephric edema, unchanged. This is likely chronic. No renal stones or hydronephrosis. Normal caliber abdominal aorta. Subcentimeter retroperitoneal lymph nodes do not meet CT criteria for pathologic involvement. Normal bladder. Suboptimal evaluation for bowel pathology due to the lack of intravenous and oral contrast. However, there is no definite bowel wall thickening or obstruction. Normal appendix. Moderate to large amount of stool seen throughout the colon. IMPRESSION: 1. No definite bowel wall thickening or obstruction. 2. Normal appendix. 3. Moderate to large amount of stool seen throughout the colon. ACT 112: Negative or not required by law. Electronically signed by: Huey Thorne M.D. 05/25/2019 10:36 PM ECG Data Attestation: I personally reviewed and interpreted this ECG as follows: Indication: + other (hypoglycemia) Rate (beats per minute): 85 Rhythm: + normal sinus ECG ST segments: + ST depression (Inferior) ECG Findings: + Poor R wave progression Comparison ECG Date: from (11/03/18) Change: no significant change Blood Pressure Blood Pressure Findings: Elevated blood pressure Blood Pressure Disposition: further management by hospitalist MDM Narrative The patient is a 53-year-old male who presented to the emergency department for generalized weakness. The patient presented with other family members. They state that the patient has had difficulty keeping his blood sugars up. He does have an insulin pump which was held for the last few hours. Despite this his blood sugar has not responded according to his family members. The patient was found to have elevated blood sugar as well as elevated temperature in the emergency department. A septic work-up was undertaken. I discussed the patient's laboratory and radiographic studies with him. He was treated with IV fluids as well as empiric antibiotics. White blood cell count was very elevated. The patient was reevaluated multiple times. On subsequent reeva luation he was feeling somewhat improved. I discussed the patient's condition with the on-call [facility] hospitalist group. They have agreed to evaluate the patient in the emergency department for further management and disposition. Impression & Plan Hyperglycemia, Hypomagnesemia, Elevated troponin, Fever, CHATO (acute kidney injury) Discharge Plan Visit Data Chief Complaint: Hypoglycemia Stated Complaint: LOW BLOOD SUGARD ED Provider: Tereso Contreras Discharge Problem: Hyperglycemia, Hypomagnesemia, Elevated troponin, Fever, CHTAO (acute kidney injury) Patient Disposition: Being Evaluated by Hospitalist Forms Stand Alone Forms: My [facility] Prescriptions Prescriptions: No Action aspirin [Aspir-81] 81 mg tablet,delayed release (DR/EC) 81 mg PO QAM RF: 0 atorvastatin 80 mg tablet 80 mg PO QPM RF: 0 bumetanide 1 mg tablet 1 mg PO BID RF: 0 fluticasone propionate [Flonase Allergy Relief] 50 mcg/actuation spray,suspension 2 sprays INTNAS BID RF: 0 levothyroxine 100 mcg capsule 100 mcg PO QAM RF: 0 losartan 25 mg tablet 25 mg PO QAM RF: 0 magnesium oxide 400 mg capsule 400 mg PO QAM RF: 0 metolazone 5 mg tablet 5 mg PO 3XWK RF: 0 metoprolol succinate 50 mg capsule,sprinkle,ER 24hr 50 mg PO QPM RF: 0 mometasone-formoterol [Dulera] 200-5 mcg/actuation HFA aerosol inhaler 2 puffs INH BID RF: 0 nitroglycerin 0.4 mg tablet, sublingual 0.4 mg SL Q5M PRN (Reason: Chest Pain) RF: 0 omeprazole 20 mg capsule,delayed release(DR/EC) 20 mg PO QPM RF: 0 spironolactone [Aldactone] 25 mg tablet 25 mg PO QAM RF: 0 tramadol 50 mg tablet 50 mg PO Q6H PRN (Reason: pain) RF: 0 Trulicity 1.5 mg/0.5 mL pen injector 1.5 mg SQ WK RF: 0 potassium chloride [Klor-Con M20] 20 mEq Tablet,Er Particles/Crystals 40 meq PO BID RF: 0 hyoscyamine sulfate [Levsin] 0.125 mg Tablet 0.125 mg PO TID RF: 0 gabapentin 300 mg Capsule 300 mg PO TID RF: 0 ergocalciferol (vitamin D2) 2,500 unit Capsule 5,000 unit PO WK RF: 0 insulin aspart U-100 [Novolog U-100 Insulin aspart] 100 unit/mL solution 0 unit continuous subcutaneous infusion CONTINOUS RF: 0 amiodarone 100 mg Tablet 100 mg PO QAM RF: 0 Referrals Referrals: Sherry Maya DO [Primary Care Provider] - Discharge Problem: Fever Qualifiers: Fever type: unspecified Qualified Code(s): R50.9 - Fever, unspecified The scribe's documentation has been prepared under my direction and personally reviewed by me in its entirety. I confirm that the note above accurately reflects all work, treatment, procedures, and medical decision making performed by me.
[2019-05-25 22:03] LABS: Albumin Level 3.3 gm/dl (3.4-5.0); BUN Creatinine Ratio 18.5 (10-20); Calcium 9.5 mg/dl (8.5-10.1); Creatinine Clr Calc Pharmacy 50.9 ml/min; Est GFR (African American) 28.8; Est GFR (Non-African American) 24.8; Magnesium 1.4 mg/dl (1.8-2.4); Potassium 4.2 mmol/L (3.5-5.1)
[2019-05-25 22:11] LABS: ANC (manual) 32.23 K/uL (1.4-6.5); Hematocrit (blood only) 44.5 % (42-52); Lymphocytes % (manual) 0.9 %; Mean Corpuscular Hemoglobin 30.6 pg (25-34); Mean Corpuscular Hgb Conc 33.7 g/dL (32-36); Mean Corpuscular Volume 90.8 fL (80-100); Mean Platelet Volume 10.9 fL (7.4-10.4); Monocytes # (manual) 0.87 K/uL (0.11-0.59); Monocytes % (manual) 2.6 %; Neutrophils # (manual) 32.23 K/uL (1.4-6.5); Neutrophils % (manual) 96.5 %; Platelet Count 173 K/uL (130-400); RDW Coefficient of Variation 15.3 % (11.5-14.5); RDW Standard Deviation 50.8 fL (36.4-46.3)
[2019-05-25 22:14] LABS: HCO3 VBG 27 mmol/L; Oxygen Saturation VBG < 60.0 %; PCO2 VBG 45 mmHg (38-50); PO2 VBG 29 mmHg
--- NOTE | 2019-05-25 22:14 | XRay Report ---
XR chest 1V portable HISTORY: SEPSIS COMPARISON: Chest 03/25/2017. FINDINGS: No pneumothorax. No pleural effusions. The heart remains mildly enlarged. The left-sided si ngle lead pacemaker/defibrillator. Interstitial vascular thickening consistent with mild pulmonary ed howie. This has slightly progressed. IMPRESSION: Cardiomegaly with mild interstitial pulmonary edema. ACT 112: Negative or not required by law. Electronically signed by: Huey Thorne M.D. 05/25/2019 10:13 PM
[2019-05-25 22:24] LABS: Albumin Globulin Ratio 0.7 (0.9-2); Bilirubin,Total 1.1 mg/dl (0.2-1); Globulin 4.8 gm/dl (2.5-4.0); Total Protein 8.1 gm/dl (6.4-8.2); Troponin I 0.13 ng/ml (0-0.045)
[2019-05-25 22:31] LABS: INR 1.2 (0.9-1.1); Partial Thromboplastin Time 28.3 Seconds (21.0-31.0); Prothrombin Time 11.9 Seconds (9.0-12.0)
--- NOTE | 2019-05-25 22:37 | CT Scan Report ---
ABDOMEN AND PELVIS CT WITHOUT CONTRAST CT DOSE: 2177.52 mGy.cm HISTORY: Generalized abdominal PAIN AND LOW bsg TECHNIQUE: Multiaxial CT images of the abdomen and pelvis were performed without contrast. A dose lo wering technique was utilized adhering to the principles of ALARA. COMPARISON STUDY: Abdomen and pelvis CT 12/05/2010. FINDINGS: A few bibasilar linear densities consistent with subsegmental atelectasis. A pacemaker wire is noted. No pneumoperitoneum. No pneumatosis. No suspicious lytic or blastic osseous lesions. The u nenhanced liver, gallbladder, spleen, adrenal glands, and pancreas are unremarkable. Mild bilateral p erinephric edema, unchanged. This is likely chronic. No renal stones or hydronephrosis. Normal calibe r abdominal aorta. Subcentimeter retroperitoneal lymph nodes do not meet CT criteria for pathologic i nvolvement. Normal bladder. Suboptimal evaluation for bowel pathology due to the lack of intravenous and oral contrast. However, there is no definite bowel wall thickening or obstruction. Normal appendi x. Moderate to large amount of stool seen throughout the colon. IMPRESSION: 1. No definite bowel wall thickening or obstruction. 2. Normal appendix. 3. Moderate to large amount of stool seen throughout the colon. ACT 112: Negative or not required by law. Electronically signed by: Huey Thorne M.D. 05/25/2019 10:36 PM
[2019-05-25] MEDS: MAGNESIUM SULFATE / D5W 1 GM/100 ML BAG IV SCH ×2 (22:43→23:43)
[2019-05-25 22:44] LABS: Influenza A virus by PCR Neg for Influ A (Neg); Influenza B virus by PCR Neg for Influ B (Neg)
[2019-05-25] MEDS ORDERED: PIPERACILL/TAZOBAC CONSULT ACTIVE PRN (22:49)
[2019-05-25] MEDS ORDERED: PIPERACILLIN/TAZOBACTAM 4.5 GM/120 ML BAG IV ONE (22:49)
[2019-05-25] MEDS ORDERED: ACETAMINOPHEN 325 MG TAB PO STA (23:00)
[2019-05-26 00:18] LABS: Appearance Urine Clear (Clear); Bacteria Urine Automated Negative (Negative); Bilirubin Urine Negative (Negative); Blood Urine 1+ (Negative); Color Urine Dark Yellow; Epithelial Cell Urine Auto 20-30 /lpf (0-5); Glucose Urine UA Negative (Negative); Ketones Urine Trace (Negative); Leukocyte Esterase Urine Negative (Negative); Nitrite Urine Negative (Negative); Protein Urine 1+ (Negative); Specific Gravity Urine 1.021 (1.000-1.030); Urobilinogen Urine Negative (Negative)
[2019-05-26] MEDS ORDERED: TRAMADOL HCL 50 MG TABLET PO STA (00:45)
[2019-05-26] MEDS ORDERED: DAPTOmycin 700 MG in SYRINGE 0 ML IV STA (01:12)
[2019-05-26] MEDS ORDERED: DAPTOMYCIN CONSULT ACTIVE PRN (01:18)
--- NOTE | 2019-05-26 01:22 | History & Physical Report ---
Date of Service May 26, 2019 Assessment & Plan (1) Severe sepsis: SIRS plus ARF on CRI plus lactic acid elevation No obvious source for now Rule out endocarditis, hx ICD chronic systolic heart failure, EF 30-34%, TTE 2017) sp ICD, equivocal volume status Some congestion on CXR ARF on CRI hx paroxysmal VT as per records, stable on amiodarone hypertension, BP on the lower side DM2 on insulin pump Suboptimal control as of recent outpatient hemoglobin A1c of 8.28 March 2019 Hypoglycemic episode at home likely secondary to poor p.o. intake, sepsis pulmonary hypertension/OHS on BiPAP as per records. PCU Cultures, Dapto, Cefepime for now Monitor creatinine response to careful IV hydration Follow lactic acid Hold home diuretic, ARB for now until creatinine at baseline Update TTE RE S OB, pulmonary congestion on CXR Hold patient's insulin pump, pharmacy glycemic control consult, update hemoglobin A1c DVT prophylaxis with Heparin subcu Full code History of Present Illness Chief Complaint: Hypoglycemia, abdominal pain Primary Care Provider: Sherry Maya DO History obtained from patient and records. HPI: Medical history significant for chronic systolic heart failure, EF 30-34%, TTE 2017) sp ICD, hx paroxysmal VT as per records, hypertension, hyperlipidemia, DM2 on insulin pump, CRI (baseline creatinine 1.6), pulmonary hypertension/OHS on BiPAP as per records. Recent confinement July 2017 for left lower extremity cellulitis. 2 weeks ago, patient seen at PCPs office for achy right shoulder pain after falling. Pain still bothersome. Patient appetite not well the last few days. Achy mid abdominal pain with nausea, emesis. Dry cough symptoms. No chest pain. Some S OB. Denies fluid retention. Fever chills at home. Cracked skin on left heel with transient bloody drainage. Blood sugar 40s at home which is unusual for him. At the ER, patient given Zosyn for possible sepsis. MEDICAL HISTORY: As above. SURGICAL HISTORY: Left shoulder surgery. ICD, tonsillectomy/adenoidectomy FAMILY HISTORY: There is a family history of heart disease and hypertension. PERSONAL SOCIAL HISTORY: Nonsmoker. No chronic intake of alcoholic beverages. Disabled. Allergies Allergy/AdvReac Type Severity Reaction Status Date / Time benzonatate AdvReac Intermediate choking, Verified 05/26/19 00:26 gagging Home Medications Home Medications Medication Instructions Recorded Confirmed Type aspirin 81 mg tablet,delayed 81 mg PO QAM 12/21/17 05/26/19 History release atorvastatin 80 mg tablet 80 mg PO QPM 12/21/17 05/26/19 History bumetanide 1 mg tablet 1 mg PO BID 12/21/17 05/26/19 History fluticasone propionate 50 2 sprays INTNAS BID gm 12/21/17 05/26/19 History mcg/actuation nasal spray,suspension levothyroxine 100 mcg capsule 100 mcg PO QAM 12/21/17 05/26/19 History losartan 25 mg tablet 25 mg PO QAM 12/21/17 05/26/19 History magnesium oxide 400 mg PO QAM cap 12/21/17 05/26/19 History metolazone 5 mg tablet 5 mg PO 3XWK tab 12/21/17 05/26/19 History metoprolol succinate 50 mg capsule 50 mg PO QPM 12/21/17 05/26/19 History sprinkle, ext. release 24 hr mometasone-formoterol HFA 200 2 puffs INH BID 12/21/17 05/26/19 History mcg-5 mcg/actuation aerosol inhaler nitroglycerin 0.4 mg sublingual 0.4 mg SL Q5M PRN 12/21/17 05/26/19 History tablet omeprazole 20 mg capsule,delayed 20 mg PO QPM 12/21/17 05/26/19 History release spironolactone 25 mg tablet 25 mg PO QAM 12/21/17 05/26/19 History tramadol 50 mg tablet 50 mg PO Q6H PRN 12/21/17 05/26/19 History amiodarone 100 mg PO QAM 10/20/18 05/26/19 History Trulicity 1.5 mg SQ WK 12/23/18 05/26/19 History ergocalciferol (vitamin D2) 5,000 unit PO WK 04/12/19 05/26/19 History gabapentin 300 mg PO TID 04/12/19 05/26/19 History hyoscyamine sulfate [Levsin] 0.125 mg PO TID 04/12/19 05/26/19 History potassium chloride [Klor-Con M20] 40 meq PO BID 04/12/19 05/26/19 History insulin aspart U-100 [Novolog 0 unit CONTINUOUS SUBCUTANEOUS 05/26/19 05/26/19 History U-100 Insulin aspart] INFUSION CONTINOUS Past Med/Surg History Medical History Asthma Dulera BID, very rare albuterol inhaler use, "maybe once per year" Cardiac defibrillator in situ [employer], implanted 06/01/12 for low EF; most recent interrogation 11/09/18. Battery reserve adequate, but reaching PRISCILA, and patient to have re-checked in 1 month. H/O 10 discharges in one day 2/2 change in diuretic causing acute electrolyte imbalance and pVT. CKD (chronic kidney disease) stage 3, GFR 30-59 ml/min Baseline Cr 1.6-1.7 Diabetes mellitus with diabetic polyneuropathy Dyslipidemia GERD (gastroesophageal reflux disease) HTN (hypertension) Hx of myocardial infarction [place]. 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 Hx of osteomyelitis Toe, ~3yrs ago. Amputated. Hypothyroid (Chronic) Ischemic cardiomyopathy (Chronic) EF 30-34%, s/p ICD Mass LEFT FOOT Morbid obesity NINA on CPAP Peripheral edema Chronic B/L Ventricular tachycardia Surgical History H/O shoulder surgery History of colonoscopy History of sinus surgery Hx of amputation of lesser toe Hx of tonsillectomy Family History Sister Family history of diabetes mellitus 2 Grandmother (Maternal) Family history of diabetes mellitus Grandfather (Maternal) Family history of diabetes mellitus Other No family history of adverse response to anesthesia Social History Preferred Language: Yi Communication Ability: Effective Equip Tech Required: No Beliefs That Will Affect Care: None Current Living Situation: Spouse Feels Safe at Home: Yes Safety Concerns: Feels Safe At This Time Smoking Status: Never smoker Second Hand Exposure: Yes (/parents smoke) ; Hx Alcohol Use: Yes Alcohol type: hard liquor Hx Substance Use: No Review of Systems Review of Systems: As per HPI, all 10 systems reviewed, all other ROS negative Physical Exam Physical Exam: GENERAL: Slightly uncomfortable, tachypneic, looks older than stated age, obese SKIN: Normal color, warm HEENT: Blevins palpebral conjunctivae, no ptosis, dry buccal mucosa NECK : Supple, short neck, no tenderness CHEST : Decreased breath sounds , no tenderness HEART : Tachycardic , no obvious murmurs ABDOMEN: Some distention, nontender EXTREMITIES : Minimal LE swelling, no LE tenderness, right shoulder tenderness with some limitation in motion, no other conspicuous deformities noted NEUROLOGIC : Coherent, no facial asymmetry, no other gross focality Results & Data Vital Signs (Past 12 Hours) Vital Signs Temp Pulse Resp BP Pulse Ox 05/26/19 01:10 93 05/26/19 01:01 79 21 117/50 L 05/26/19 01:00 77 18 05/26/19 00:50 80 24 05/26/19 00:44 77 31 H 93 05/26/19 00:40 78 22 91 05/26/19 00:31 79 30 H 92 05/26/19 00:30 78 26 H 91 05/26/19 00:20 79 24 95 05/26/19 00:10 79 15 91 05/26/19 00:01 82 22 93 05/26/19 00:00 81 30 H 97/49 L 92 05/25/19 23:55 80 15 05/25/19 23:43 82 30 H 92 05/25/19 23:42 83 31 H 129/57 L 90 05/25/19 23:40 82 21 90 05/25/19 23:31 83 28 H 05/25/19 23:30 84 25 H 93 05/25/19 23:20 84 26 H 05/25/19 23:18 85 18 129/55 L 05/25/19 23:10 85 32 H 94 05/25/19 23:00 84 31 H 93 05/25/19 22:50 84 32 H 93 05/25/19 22:48 84 34 H 95 05/25/19 22:47 84 34 H 135/60 94 05/25/19 22:40 84 33 H 94 05/25/19 22:30 86 33 H 94 05/25/19 22:26 89 25 H 94 05/25/19 22:10 84 28 H 05/25/19 22:00 84 34 H 96 05/25/19 21:58 82 32 H 94 05/25/19 21:57 85 32 H 97/66 L 91 05/25/19 21:54 96 05/25/19 21:52 85 27 H 86/60 L 94 05/25/19 21:50 82 32 H 95 05/25/19 21:40 73 18 96 05/25/19 21:30 87 31 H 05/25/19 21:20 83 20 91 05/25/19 20:46 38.2 C H 88 20 139/79 95 Laboratory Results Laboratory Results WBC 33.40 K/uL (4.8-10.8) H* 05/25/19 21:13 RBC 4.90 M/uL (4.7-6.1) 05/25/19 21:13 Hgb 15.0 g/dL (14.0-18.0) 05/25/19 21:13 Hct 44.5 % (42-52) 05/25/19 21:13 MCV 90.8 fL (80-100) 05/25/19 21:13 MCH 30.6 pg (25-34) 05/25/19 21:13 MCHC 33.7 g/dL (32-36) 05/25/19 21:13 RDW Std Deviation 50.8 fL (36.4-46.3) H 05/25/19 21:13 RDW Coeff of Мария 15.3 % (11.5-14.5) H 05/25/19 21:13 Plt Count 173 K/uL (130-400) 05/25/19 21:13 MPV 10.9 fL (7.4-10.4) H 05/25/19 21:13 Neutrophils % (Manual) 96.5 % 05/25/19 21:13 Lymphocytes % (Manual) 0.9 % 05/25/19 21:13 Monocytes % (Manual) 2.6 % 05/25/19 21:13 Neutrophils # (Manual) 32.23 K/uL (1.4-6.5) H 05/25/19 21:13 Total Absolute Neuts 32.23 K/uL (1.4-6.5) H 05/25/19 21:13 Lymphocytes # (Manual) 0.30 K/uL (1.2-3.4) L 05/25/19 21:13 Total Abs Lymphocytes 0.30 K/uL (1.2-3.4) L 05/25/19 21:13 Monocytes # (Manual) 0.87 K/uL (0.11-0.59) H 05/25/19 21:13 PT 11.9 Seconds (9.0-12.0) 05/25/19 21:13 INR 1.2 (0.9-1.1) H 05/25/19 21:13 APTT 28.3 Seconds (21.0-31.0) 05/25/19 21:13 PTT Ratio 1.0 05/25/19 21:13 VBG pH 7.40 (7.36-7.41) 05/25/19 21:53 VBG pCO2 45 mmHg (38-50) 05/25/19 21:53 VBG pO2 29 mmHg 05/25/19 21:53 VBG HCO3 27 mmol/L 05/25/19 21:53 VBG O2 Saturation < 60.0 % 05/25/19 21:53 VBG Base Excess 2.0 mEq/L 05/25/19 21:53 Barometric Pressure 736.1 mm/Hg 05/25/19 21:53 Sodium 131 mmol/L (136-145) L 05/25/19 21:13 Potassium 4.2 mmol/L (3.5-5.1) 05/25/19 21:13 Chloride 96 mmol/L (98-107) L 05/25/19 21:13 Carbon Dioxide 27 mmol/L (21-32) 05/25/19 21:13 Anion Gap 8.0 (3-11) 05/25/19 21:13 BUN 51 mg/dl (7-18) H 05/25/19 21:13 Creatinine 2.75 mg/dl (0.6-1.4) H 05/25/19 21:13 Est Cr Clr Drug Dosing 50.9 ml/min 05/25/19 21:13 Est GFR ( Amer) 28.8 05/25/19 21:13 Est GFR (Non-Af Amer) 24.8 05/25/19 21:13 BUN/Creatinine Ratio 18.5 (10-20) 05/25/19 21:13 Glucose 237 mg/dl (70-99) H 05/25/19 21:13 POC Glucose 204 mg/dl (70-99) H 05/25/19 20:50 Lactate 3.0 mmol/L (0.4-2.0) H* 05/26/19 00:02 Calcium 9.5 mg/dl (8.5-10.1) 05/25/19 21:13 Magnesium 1.4 mg/dl (1.8-2.4) L 05/25/19 21:13 Total Bilirubin 1.1 mg/dl (0.2-1) H 05/25/19 21:13 AST 37 U/L (15-37) 05/25/19 21:13 ALT 27 U/L (12-78) 05/25/19 21:13 Alkaline Phosphatase 94 U/L (45-117) 05/25/19 21:13 Troponin I 0.123 ng/ml (0-0.045) H* 05/26/19 00:02 Total Protein 8.1 gm/dl (6.4-8.2) 05/25/19 21:13 Albumin 3.3 gm/dl (3.4-5.0) L 05/25/19 21:13 Globulin 4.8 gm/dl (2.5-4.0) H 05/25/19 21:13 Albumin/Globulin Ratio 0.7 (0.9-2) L 05/25/19 21:13 Procalcitonin 30.87 ng/ml (0-0.5) H 05/25/19 21:13 Urine Color Dark Yellow 05/25/19 23:56 Urine Appearance Clear (Clear) 05/25/19 23:56 Urine pH 5.0 (4.5-7.5) 05/25/19 23:56 Ur Specific [place] 1.021 (1.000-1.030) 05/25/19 23:56 Urine Protein 1+ (Negative) H 05/25/19 23:56 Urine Glucose (UA) Negative (Negative) 05/25/19 23:56 Urine Ketones Trace (Negative) H 05/25/19 23:56 Urine Blood 1+ (Negative) H 05/25/19 23:56 Urine Nitrite Negative (Negative) 05/25/19 23:56 Urine Bilirubin Negative (Negative) 05/25/19 23:56 Urine Urobilinogen Negative (Negative) 05/25/19 23:56 Ur Leukocyte Esterase Negative (Negative) 05/25/19 23:56 Urine WBC (Auto) 1-5 /hpf (0-5) 05/25/19 23:56 Urine RBC (Auto) 5-10 /hpf (0-4) H 05/25/19 23:56 U Hyaline Cast (Auto) 10-30 /lpf (0-5) H 05/25/19 23:56 U Epithel Cells (Auto) 20-30 /lpf (0-5) H 05/25/19 23:56 Urine Bacteria (Auto) Negative (Negative) 05/25/19 23:56 Influenza Type A (PCR) Neg for Influ A (Neg) 05/25/19 21:52 Influenza Type B (PCR) Neg for Influ B (Neg) 05/25/19 21:52 Diagnostic Findings Chest x-ray: Cardiomegaly with mild interstitial pulmonary edema. CT abdomen pelvis: 1. No definite bowel wall thickening or obstruction. 2. Normal appendix. 3. Moderate to large amount of stool seen throughout the colon. CT right shoulder initial read: 1. No definite bowel wall thickening or obstruction. 2. Normal appendix. 3. Moderate to large amount of stool seen throughout the colon. EEG as per my interpretation rate 85, NSR, normal axis, T wave flattening lateral leads, septal infarct, low voltage
[2019-05-26] MEDS ORDERED: ALBUMIN 25% 50 ML IV ONE (01:26)
[2019-05-26] MEDS: MAGNESIUM SULFATE / D5W 1 GM/100 ML BAG IV SCH ×3 (01:45→01:47)
[2019-05-26] MEDS ORDERED: PROMETHAZINE HCL 12.5 MG in SODIUM CHLORIDE 0.9% 50 ML IV PRN (03:22)
[2019-05-26] MEDS ORDERED: ALBUT/IPRATROP 3MG/0.5MG NEB 3 ML VIAL NEB STA (03:22)
[2019-05-26] MEDS ORDERED: PHARMACY GLYCEMIC MGMT CONSULT PRN (03:44)
[2019-05-26] MEDS ORDERED: INSULIN GLARGINE SOLOSTAR 100 UNITS/ML 3 ML PEN SC STA (03:46)
[2019-05-26] MEDS ORDERED: CEFEPIME CONSULT ACTIVE PRN (03:54)
[2019-05-26] MEDS: INSULIN ASPART 100 UNITS/ML 3 ML PEN SC SCH ×5 (04:18→20:15)
[2019-05-26] MEDS ORDERED: ACETAMINOPHEN 325 MG TAB PO STA (04:29)
[2019-05-26] MEDS ORDERED: ACETAMINOPHEN 325 MG TAB ONE (04:44)
[2019-05-26] MEDS ORDERED: ALBUMIN 25% 50 ML IV STA (04:52)
[2019-05-26 05:35] LABS: Hemoglobin 14.8 g/dL (14.0-18.0); Mean Corpuscular Hemoglobin 30.1 pg (25-34); Mean Corpuscular Hgb Conc 33.6 g/dL (32-36); Mean Corpuscular Volume 89.6 fL (80-100); Mean Platelet Volume 10.4 fL (7.4-10.4); Platelet Count 130 K/uL (130-400); RDW Coefficient of Variation 15.4 % (11.5-14.5); RDW Standard Deviation 50.2 fL (36.4-46.3); Red Blood Count 4.91 M/uL (4.7-6.1); White Blood Count 26.27 K/uL (4.8-10.8)
[2019-05-26] MEDS: LEVOTHYROXINE SODIUM 100 MCG TABLET PO SCH (05:42)
[2019-05-26 05:56] LABS: BUN Creatinine Ratio 19.8 (10-20); Calcium 9.2 mg/dl (8.5-10.1); Creatinine Clr Calc Pharmacy 56.1 ml/min; Est GFR (African American) 32.6; Est GFR (Non-African American) 28.1; Magnesium 1.9 mg/dl (1.8-2.4); Potassium 3.9 mmol/L (3.5-5.1)
[2019-05-26 05:58] LABS: Basophils # (auto) 0.02 K/uL (0-0.2); Basophils % (auto) 0.1 %; Immature Granulocytes # (auto) 0.33 K/uL (0.00-0.02); Immature Granulocytes % (auto) 1.3 %; Lymphocytes # (auto) 0.26 K/uL (1.2-3.4); Monocytes # (auto) 0.72 K/uL (0.11-0.59); Monocytes % (auto) 2.7 %; Neutrophils # (auto) 24.94 K/uL (1.4-6.5); Neutrophils % (auto) 94.9 %
[2019-05-26] MEDS ORDERED: SODIUM CHLORIDE 0.9% 500 ML IV ONE (06:03)
--- NOTE | 2019-05-26 06:32 | CT Scan Report ---
CT shoulder RT wo con CT DOSE: HISTORY: Pain. Trauma. R shoulder pain TECHNIQUE: Multiaxial CT images of the right shoulder were performed and reformatted in the sagittal and coronal plane without the use of contrast. A dose lowering technique was utilized adhering to th e principles of ALARA. COMPARISON: None. FINDINGS: Generalized degenerative change. Mild surrounding soft tissue edema. No well-defined fractu re or dislocation. Cortical margins appear intact. IMPRESSION: Generalized degenerative change. Soft tissue edema. No acute bony abnormality. ACT 112: Negative or not required by law. The above report was generated using voice recognition software. It may contain grammatical, syntax or spelling errors. Electronically signed by: Declan Courtney M.D. 05/26/2019 6:31 AM
[2019-05-26 06:34] LABS: Beta-Hydroxybutyrate 4.95 mg/dl (0.2-2.81)
[2019-05-26] MEDS ORDERED: CEFEPIME 2,000 MG in SYRINGE 7.5 ML IV SCH (07:00)
[2019-05-26] MEDS ORDERED: fentaNYL citrate 100 MCG/2 ML VIAL IV ONE (08:21)
[2019-05-26] MEDS ORDERED: LORazepam 2 MG/ML VIAL IV ONE (08:21)
[2019-05-26] MEDS ORDERED: PHARMACY GLYCEMIC MGMT CONSULT STA (08:49)
[2019-05-26] MEDS ORDERED: INSULIN PROTOCOL GOAL RANGE ONE (09:03)
[2019-05-26] MEDS ORDERED: INSULIN HUMAN REGULAR IV BOLUS 10 UNITS in SYRINGE 0 ML IV ONE (09:14)
[2019-05-26] MEDS: HEPARIN SOD 5,000 UNIT/0.5 ML VIAL SQ SCH ×3 (09:23→22:06)
[2019-05-26] MEDS: AMIODARONE 200 MG TAB PO SCH (09:24)
[2019-05-26] MEDS: ASPIRIN 81 MG ECTAB PO SCH (09:24)
[2019-05-26] MEDS: FLUTICASONE/VILANTEROL 200/25MCG 14 PUFFS/INHALER INH SCH (09:24)
[2019-05-26] MEDS: FLUTICASONE PROPIONATE NA SPR 16 GM BTL SCH ×2 (09:25→20:15)
[2019-05-26] MEDS: GABAPENTIN 100 MG CAP PO SCH ×3 (09:25→20:14)
[2019-05-26] MEDS: INSULIN REGULAR 250 UNITS in SODIUM CHLORIDE 0.9% 247.5 ML IV SCH (09:57)
[2019-05-26] MEDS: ACETAMINOPHEN 325 MG TAB PO PRN ×2 (11:29→20:16)
[2019-05-26] MEDS ORDERED: DAPTOmycin 475 MG in SYRINGE 0 ML IV ONE (12:00)
[2019-05-26] MEDS: TRAMADOL HCL 50 MG TABLET PO PRN ×2 (12:26→22:02)
[2019-05-26] MEDS ORDERED: ACETAMINOPHEN 325 MG TAB PO ONE (13:30)
[2019-05-26] MEDS ORDERED: METOPROLOL TARTRATE 25 MG TAB PO STA (13:35)
[2019-05-26 14:18] LABS: Calcium 8.4 mg/dl (8.5-10.1); Creatinine Clr Calc Pharmacy 59.2 ml/min; Est GFR (African American) 34.8
[2019-05-26] MEDS ORDERED: POTASSIUM CHLORIDE 20 MEQ TABCR PO ONE (15:30)
[2019-05-26] MEDS ORDERED: POTASSIUM CHLORIDE / WTR 10 MEQ/100 ML PLCT IV ONE (15:30)
--- NOTE | 2019-05-26 15:34 | Pharmacy Report ---
Pharmacy Glycemic Short Note 2 - Date of Service May 26, 2019 - Glycemic Short BSG Results (Last 24 hours): 05/25/19 05/25/19 05/26/19 20:50 21:13 02:29 Glucose 237 H POC Glucose 204 H 303 H* Fasting Glucose 05/26/19 05/26/19 05/26/19 04:17 05:27 07:31 Glucose 305 H* POC Glucose 365 H* 355 H* Fasting Glucose 05/26/19 05/26/19 05/26/19 07:33 09:55 11:05 Glucose POC Glucose 364 H* 396 H* 361 H* Fasting Glucose 05/26/19 05/26/19 05/26/19 12:12 13:06 13:50 Glucose POC Glucose 390 H* 275 H Fasting Glucose 231 H 05/26/19 05/26/19 14:09 15:05 Glucose POC Glucose 239 H 206 H Fasting Glucose OUTPATIENT ANTIDIABETIC REGIMEN: * Patient uses insulin pump (Novolog U100 insulin used in pump) * Total daily doses reviewed and ranged 160-250units/day (most of which are basal doses) * It appears that his pump delivers mostly basal insulin doses as he admits to rarely bolusing himself and when he does bolus he stated he can only give up to 20units per bolus dose ASSESSMENT: * IV insulin infusion started due to sepsis/bacteremia dx and BSGs trending upwards in the mid-upper 300's * No AG acidosis noted on labs, however lactate is trending upwards * Plan is to continue IV insulin drip to gain quick control of hyperglycemic state. Will continue to administer basal insulin w/ the IV insulin drip to allow for easier transition back to SQ given highly insulin resistant state. * In the past, he had U500 in his insulin pump and had used upwards of 300units/day. Prior to using this insulin pump, he was using Lantus 100 units BID and Novolog 60 units per meal. I anticipate his total daily insulin requirement to be 300+ units/day. PLAN FOR INPATIENT GLYCEMIC CONTROL: * IV insulin infusion, goal range 110-180mg/dL * Basal insulin * Lantus 80 units SQ BID - may be given with the insulin drip * Bolus insulin * Nutritional / Prandial insulin per carb ratio of 1 unit per 2 grams CHO consumed while on insulin drip PLAN FOR DISCHARGE: * to be determined. it seems that patient has some difficulties with using his insulin pump and may not be bolusing himself appropriately and his pump reservoir may not hold a full 24 hr supply of insulin to fit his needs.
[2019-05-26] MEDS ORDERED: METOPROLOL TARTRATE 1 MG/ML VIAL IV ONE (15:50)
[2019-05-26] MEDS ORDERED: POTASSIUM CHLORIDE 20 MEQ TABCR PO STA ×3 (16:08→19:52)
[2019-05-26] MEDS ORDERED: AMIODARONE 150MG / 100ML D5W IV ONE (16:13)
[2019-05-26] MEDS ORDERED: AMIODARONE / D5W 150 MG/100 ML BAG IV STA (16:23)
[2019-05-26] MEDS ORDERED: AMIODARONE IV BOLUS / DRIP IV STA (16:23)
[2019-05-26] MEDS: AMIODARONE 360MG / 200ML D5W IV ONE ×2 (16:25→16:40)
[2019-05-26] MEDS: POTASSIUM CHLORIDE / WTR 10 MEQ/100 ML PLCT IV SCH ×4 (16:28→19:32)
--- NOTE | 2019-05-26 16:28 | Cardiology Consultation ---
Date of Consultation May 26, 2019 Assessment & Plan (1) Wide-complex tachycardia: It appears that the patient was in atrial flutter with 2:1 conduction but his rate then increased to the 220s with slight vector change. I reviewed the telemetry strips along with device interrogation with the [employer] paper sales representative and it does appear that he had atrial flutter that progressed to ventricular tachycardia. His device performed appropriately with antitachycardia pacing that led to a single ICD discharge with conversion back to atrial flutter. I believe this event was a result of his significant hypokalemia in the setting of underlying ischemic cardiomyopathy. The patient has had similar episodes in the past. At this point I will aggressively replete his potassium level and repeat laboratory studies in an hour or 2. His potassium should be maintained tightly between 4 and 5, his magnesium level is normal at 2 today. I will give him an amiodarone bolus and load to prevent any further events while his electrolytes are corrected. He will be maintained on his oral beta-noy as well. Patient should remain under close supervision on telemetry (2) Atrial flutter with rapid ventricular response: He was in sinus rhythm upon presentation but did lapse in atrial flutter today. I suspect that he will convert to sinus rhythm with the amiodarone Most recent device interrogation does not reveal any prolonged episodes of atrial flutter and I doubt that anticoagulation will be necessary at this time but final decision will be made prior to discharge. (3) Hypokalemia: Likely precipitant of event. Will be repleted Must be maintained between 4 and 5 (4) Severe sepsis: Antibiotic choice is appropriate and neither daptomycin or cefepime are known QT prolonging agents. Would not make any antibiotic changes from a cardiac standpoint. Obviously will defer underlying treatment to the primary team. (5) CHATO (acute kidney injury): (6) Ischemic cardiomyopathy: Stable, will repeat echocardiogram (7) NINA on CPAP: (8) Diabetic peripheral neuropathy associated with type 2 diabetes mellitus: History of Present Illness Reason for Consultation: stat cardiology consult for wide complex tachycardia and ICD shock Requesting Physician: Dr. Longoria Attending Physician: Sagar Longoria MD History of Present Illness It was my pleasure to see Mr. Lyle in stat cardiology consultation today May 26, 2019. He is a very pleasant 53-year-old gentleman who follows with Julia Arreguin and Parvin Silvestre of our practice. He presented to [facility] on 05/25/2019 with complaints of not feeling well. The patient states he is just had an overall malaise along with anorexia, abdominal discomfort, nausea and myalgias. He states is been persisting for the last few days but denies any specific sign of infection. He is not had a productive cough. Denies dysuria and denies any significant rashes or signs of cellulitis. Upon presentation to the emergency department he was found to have Sirs plus acute on chronic renal failure along with elevated lactic acid level. He was started on broad-spectrum antibiotics including daptomycin and cefepime and admitted to telemetry. Throughout the day on May 26, 2019 he continued to not feel well. He subsequently then started having episodes of palpitations in the afternoon feeling his heart racing. He denied any associated shortness of breath, lightheadedness or dizziness but he became apprehensive that his ICD might fire. His heart rate did reach the 220s at that time his device tried anti- tachycardic pacing which was unsuccessful and a single shock was delivered with improvement of his tachycardia from 220s to 150. At that time he remained in a wide-complex tachycardia with a right bundle branch block pattern consistently 150 beats a minute. This was the underlying rhythm throughout the day as well leading up to his event. After the ICD firing I was notified by nursing and then the hospitalist and asked to see the patient emergently. I was at the patient's bedside within minutes and he states that he has been feeling better. Leading up to the ICD firing again he denied any lightheadedness, dizziness or presyncope he states he just felt his heart racing. He states that this is very similar to an episode he had in 2017 where he received 12 shocks while hospitalized in [place] with sepsis. At that time he was found to be profoundly hypokalemic as he is today as well. He is never had any inappropriate ICD firings. He recently underwent generator change for PRISCILA along with lead revision resulting in appropriate placement. Past medical history per outpatient cardiology records: 1. Ischemic cardiomyopathy EF 30-34% compensated systolic heart failure. 2. Single lead Medtr[employer] ICD with appropriate ICD discharges x12 on 01/04/2017. -suspect dysrhythmias related to profound hypokalemia and hypomagnesemia in the setting of dehydration and over-diuresis. -no recurrent ICD therapies and tolerating low-dose amiodarone -Normal TSH 01/2018, normal LFTs 04/2018. -ICD approaching PRISCILA status post generator change on 04/12/2019 along with subsequent lead repositioning April 26, 2019 3. Hypertension - controlled 4. Dyslipidemia, goal LDL less than 70 mg/dl - controlled, tolerating high potency statin. 5. Stable CKD stage 3 with baseline creatinine of 1.6 - 1.7mg/dL 6. DM-2 improved control noted with most recent hemoglobin A1c of 9.1% (07/28/2018) 7. Morbid obesity with Obstructive sleep apnea and chronic lower extremity lymphedema. 8. Noncompliance, reportedly resolved. Allergies Allergy/AdvReac Type Severity Reaction Status Date / Time benzonatate AdvReac Intermediate choking, Verified 05/26/19 00:26 gagging Home Medications Home Medications Medication Instructions Recorded Confirmed Type aspirin 81 mg tablet,delayed 81 mg PO QAM 12/21/17 05/26/19 History release atorvastatin 80 mg tablet 80 mg PO QPM 12/21/17 05/26/19 History bumetanide 1 mg tablet 1 mg PO BID 12/21/17 05/26/19 History fluticasone propionate 50 2 sprays INTNAS BID gm 12/21/17 05/26/19 History mcg/actuation nasal spray,suspension levothyroxine 100 mcg capsule 100 mcg PO QAM 12/21/17 05/26/19 History losartan 25 mg tablet 25 mg PO QAM 12/21/17 05/26/19 History magnesium oxide 400 mg PO QAM cap 12/21/17 05/26/19 History metolazone 5 mg tablet 5 mg PO 3XWK tab 12/21/17 05/26/19 History metoprolol succinate 50 mg capsule 50 mg PO QPM 12/21/17 05/26/19 History sprinkle, ext. release 24 hr mometasone-formoterol HFA 200 2 puffs INH BID 12/21/17 05/26/19 History mcg-5 mcg/actuation aerosol inhaler nitroglycerin 0.4 mg sublingual 0.4 mg SL Q5M PRN 12/21/17 05/26/19 History tablet omeprazole 20 mg capsule,delayed 20 mg PO QPM 12/21/17 05/26/19 History release spironolactone 25 mg tablet 25 mg PO QAM 12/21/17 05/26/19 History tramadol 50 mg tablet 50 mg PO Q6H PRN 12/21/17 05/26/19 History amiodarone 100 mg PO QAM 10/20/18 05/26/19 History Trulicity 1.5 mg SQ WK 12/23/18 05/26/19 History ergocalciferol (vitamin D2) 5,000 unit PO WK 04/12/19 05/26/19 History gabapentin 300 mg PO TID 04/12/19 05/26/19 History hyoscyamine sulfate [Levsin] 0.125 mg PO TID 04/12/19 05/26/19 History potassium chloride [Klor-Con M20] 40 meq PO BID 04/12/19 05/26/19 History insulin aspart U-100 [Novolog 0 unit CONTINUOUS SUBCUTANEOUS 05/26/19 05/26/19 History U-100 Insulin aspart] INFUSION CONTINOUS Patient History Medical History Asthma Dulera BID, very rare albuterol inhaler use, "maybe once per year" Cardiac defibrillator in situ Medtronic, implanted 06/01/12 for low EF; most recent interrogation 11/09/18. Battery reserve adequate, but reaching PRISCILA, and patient to have re-checked in 1 month. H/O 10 discharges in one day 2/2 change in diuretic causing acute electrolyte imbalance and pVT. CKD (chronic kidney disease) stage 3, GFR 30-59 ml/min Baseline Cr 1.6-1.7 Diabetes mellitus with diabetic polyneuropathy Dyslipidemia GERD (gastroesophageal reflux disease) HTN (hypertension) Hx of myocardial infarction [place]. 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 Hx of osteomyelitis Toe, ~3yrs ago. Amputated. Hypothyroid (Chronic) Ischemic cardiomyopathy (Chronic) EF 30-34%, s/p ICD Mass LEFT FOOT Morbid obesity NINA on CPAP Peripheral edema Chronic B/L Ventricular tachycardia Surgical History H/O shoulder surgery History of colonoscopy History of sinus surgery Hx of amputation of lesser toe Hx of tonsillectomy Family History Sister Family history of diabetes mellitus 2 Grandmother (Maternal) Family history of diabetes mellitus Grandfather (Maternal) Family history of diabetes mellitus Other No family history of adverse response to anesthesia Social History Preferred Language: Yi Communication Ability: Effective Medical Biller/Coder Required: No Beliefs That Will Affect Care: None Current Living Situation: Spouse Feels Safe at Home: Yes Safety Concerns: Feels Safe At This Time Smoking Status: Never smoker Second Hand Exposure: Yes (/parents smoke) ; Hx Alcohol Use: Yes Alcohol type: hard liquor Hx Substance Use: No Review of Systems Review of Systems: All systems reviewed & are unremarkable except as noted in HPI & below Physical Exam Physical Exam: General: Awake, alert and oriented x 3. No acute distress. HEENT: Normocephalic, atraumatic. Pupils equal, round and reactive to light and accommodation. Extraocular muscles are intact. Anicteric sclera. Moist mucous membranes. Neck: No JVD. No bruit. Cardiovascular: Regular. Positive S-4. Normal S-1 and S-2. No S-3. No murmurs or rubs. Pulmonary: Clear to auscultation B/L. No rales, rhonchi or wheezing Abdomen: Bowel sounds x 4, soft. No rebound, guarding or tenderness. No organomegaly. Extremities: No clubbing, cyanosis or edema. +2 pedal pulses bilaterally. Skin: Warm and dry. Results & Data Vital Signs (Past 12 Hours) Vital Signs Temp Pulse Pulse Resp BP BP Pulse Ox 05/26/19 15:49 155 H 112/70 05/26/19 15:28 36.9 C 152 H 22 105/77 94 05/26/19 14:52 148 H 20 99/75 L 92 05/26/19 12:00 39.5 C H 93 H 20 126/52 L 92 05/26/19 08:08 37.1 C 05/26/19 08:00 85 05/26/19 07:30 38.2 C H 81 20 107/48 L 93 05/26/19 05:48 37.9 C H 85 19 122/72 92 05/26/19 04:28 38.4 C H Laboratory Results Laboratory Results - last 24 hr 05/25/19 05/25/19 05/25/19 20:50 21:13 21:13 WBC 33.40 H* RBC 4.90 Hgb 15.0 Hct 44.5 MCV 90.8 MCH 30.6 MCHC 33.7 RDW Std Deviation 50.8 H RDW Coeff of Мария 15.3 H Plt Count 173 MPV 10.9 H Immature Gran % (Auto) Neut % (Auto) Lymph % (Auto) [place] % (Auto) Eos % (Auto) Baso % (Auto) Immature Gran # (Auto) Neut # (Auto) Lymph # (Auto) [place] # (Auto) Eos # (Auto) Baso # (Auto) Neutrophils % (Manual) 96.5 Lymphocytes % (Manual) 0.9 Monocytes % (Manual) 2.6 Neutrophils # (Manual) 32.23 H Total Absolute Neuts 32.23 H Lymphocytes # (Manual) 0.30 L Total Abs Lymphocytes 0.30 L Monocytes # (Manual) 0.87 H PT 11.9 INR 1.2 H APTT 28.3 PTT Ratio 1.0 VBG pH VBG pCO2 VBG pO2 VBG HCO3 VBG O2 Saturation VBG Base Excess Barometric Pressure Sodium Potassium Chloride Carbon Dioxide Anion Gap BUN Creatinine Est Cr Clr Drug Dosing Est GFR ( Amer) Est GFR (Non-Af Amer) BUN/Creatinine Ratio Glucose POC Glucose 204 H Fasting Glucose Lactate Calcium Magnesium Total Bilirubin AST ALT Alkaline Phosphatase Troponin I Total Protein Albumin Globulin Albumin/Globulin Ratio Beta-Hydroxybutyric Acd Procalcitonin Urine Color Urine Appearance Urine pH Ur Specific [place] Urine Protein Urine Glucose (UA) Urine Ketones Urine Blood Urine Nitrite Urine Bilirubin Urine Urobilinogen Ur Leukocyte Esterase Urine WBC (Auto) Urine RBC (Auto) U Hyaline Cast (Auto) U Epithel Cells (Auto) Urine Bacteria (Auto) Influenza Type A (PCR) Influenza Type B (PCR) 05/25/19 05/25/19 05/25/19 21:13 21:13 21:52 WBC RBC Hgb Hct MCV MCH MCHC RDW Std Deviation RDW Coeff of Мария Plt Count MPV Immature Gran % (Auto) Neut % (Auto) Lymph % (Auto) [place] % (Auto) Eos % (Auto) Baso % (Auto) Immature Gran # (Auto) Neut # (Auto) Lymph # (Auto) [place] # (Auto) Eos # (Auto) Baso # (Auto) Neutrophils % (Manual) Lymphocytes % (Manual) Monocytes % (Manual) Neutrophils # (Manual) Total Absolute Neuts Lymphocytes # (Manual) Total Abs Lymphocytes Monocytes # (Manual) PT INR APTT PTT Ratio VBG pH VBG pCO2 VBG pO2 VBG HCO3 VBG O2 Saturation VBG Base Excess Barometric Pressure Sodium 131 L Potassium 4.2 Chloride 96 L Carbon Dioxide 27 Anion Gap 8.0 BUN 51 H Creatinine 2.75 H Est Cr Clr Drug Dosing 50.9 Est GFR ( Amer) 28.8 Est GFR (Non-Af Amer) 24.8 BUN/Creatinine Ratio 18.5 Glucose 237 H POC Glucose Fasting Glucose Lactate Calcium 9.5 Magnesium 1.4 L Total Bilirubin 1.1 H AST 37 ALT 27 Alkaline Phosphatase 94 Troponin I 0.130 H* Total Protein 8.1 Albumin 3.3 L Globulin 4.8 H Albumin/Globulin Ratio 0.7 L Beta-Hydroxybutyric Acd Procalcitonin 30.87 H Urine Color Urine Appearance Urine pH Ur Specific [place] Urine Protein Urine Glucose (UA) Urine Ketones Urine Blood Urine Nitrite Urine Bilirubin Urine Urobilinogen Ur Leukocyte Esterase Urine WBC (Auto) Urine RBC (Auto) U Hyaline Cast (Auto) U Epithel Cells (Auto) Urine Bacteria (Auto) Influenza Type A (PCR) Neg for Influ A Influenza Type B (PCR) Neg for Influ B 05/25/19 05/25/19 05/25/19 21:53 21:53 23:56 WBC RBC Hgb Hct MCV MCH MCHC RDW Std Deviation RDW Coeff of Мария Plt Count MPV Immature Gran % (Auto) Neut % (Auto) Lymph % (Auto) [place] % (Auto) Eos % (Auto) Baso % (Auto) Immature Gran # (Auto) Neut # (Auto) Lymph # (Auto) [place] # (Auto) Eos # (Auto) Baso # (Auto) Neutrophils % (Manual) Lymphocytes % (Manual) Monocytes % (Manual) Neutrophils # (Manual) Total Absolute Neuts Lymphocytes # (Manual) Total Abs Lymphocytes Monocytes # (Manual) PT INR APTT PTT Ratio VBG pH 7.40 VBG pCO2 45 VBG pO2 29 VBG HCO3 27 VBG O2 Saturation < 60.0 VBG Base Excess 2.0 Barometric Pressure 736.1 Sodium Potassium Chloride Carbon Dioxide Anion Gap BUN Creatinine Est Cr Clr Drug Dosing Est GFR ( Amer) Est GFR (Non-Af Amer) BUN/Creatinine Ratio Glucose POC Glucose Fasting Glucose Lactate 2.9 H* Calcium Magnesium Total Bilirubin AST ALT Alkaline Phosphatase Troponin I Total Protein Albumin Globulin Albumin/Globulin Ratio Beta-Hydroxybutyric Acd Procalcitonin Urine Color Dark Yellow Urine Appearance Clear Urine pH 5.0 Ur Specific [place] 1.021 Urine Protein 1+ H Urine Glucose (UA) Negative Urine Ketones Trace H Urine Blood 1+ H Urine Nitrite Negative Urine Bilirubin Negative Urine Urobilinogen Negative Ur Leukocyte Esterase Negative Urine WBC (Auto) 1-5 Urine RBC (Auto) 5-10 H U Hyaline Cast (Auto) 10-30 H U Epithel Cells (Auto) 20-30 H Urine Bacteria (Auto) Negative Influenza Type A (PCR) Influenza Type B (PCR) 05/26/19 05/26/19 05/26/19 00:02 00:02 02:29 WBC RBC Hgb Hct MCV MCH MCHC RDW Std Deviation RDW Coeff of Мария Plt Count MPV Immature Gran % (Auto) Neut % (Auto) Lymph % (Auto) [place] % (Auto) Eos % (Auto) Baso % (Auto) Immature Gran # (Auto) Neut # (Auto) Lymph # (Auto) [place] # (Auto) Eos # (Auto) Baso # (Auto) Neutrophils % (Manual) Lymphocytes % (Manual) Monocytes % (Manual) Neutrophils # (Manual) Total Absolute Neuts Lymphocytes # (Manual) Total Abs Lymphocytes Monocytes # (Manual) PT INR APTT PTT Ratio VBG pH VBG pCO2 VBG pO2 VBG HCO3 VBG O2 Saturation VBG Base Excess Barometric Pressure Sodium Potassium Chloride Carbon Dioxide Anion Gap BUN Creatinine Est Cr Clr Drug Dosing Est GFR ( Amer) Est GFR (Non-Af Amer) BUN/Creatinine Ratio Glucose POC Glucose 303 H* Fasting Glucose Lactate 3.0 H* Calcium Magnesium Total Bilirubin AST ALT Alkaline Phosphatase Troponin I 0.123 H* Total Protein Albumin Globulin Albumin/Globulin Ratio Beta-Hydroxybutyric Acd Procalcitonin Urine Color Urine Appearance Urine pH Ur Specific [place] Urine Protein Urine Glucose (UA) Urine Ketones Urine Blood Urine Nitrite Urine Bilirubin Urine Urobilinogen Ur Leukocyte Esterase Urine WBC (Auto) Urine RBC (Auto) U Hyaline Cast (Auto) U Epithel Cells (Auto) Urine Bacteria (Auto) Influenza Type A (PCR) Influenza Type B (PCR) 05/26/19 05/26/19 05/26/19 04:17 05:27 05:27 WBC 26.27 H RBC 4.91 Hgb 14.8 Hct 44.0 MCV 89.6 MCH 30.1 MCHC 33.6 RDW Std Deviation 50.2 H RDW Coeff of Мария 15.4 H Plt Count 130 MPV 10.4 Immature Gran % (Auto) 1.3 Neut % (Auto) 94.9 Lymph % (Auto) 1.0 [place] % (Auto) 2.7 Eos % (Auto) 0.0 Baso % (Auto) 0.1 Immature Gran # (Auto) 0.33 H Neut # (Auto) 24.94 H Lymph # (Auto) 0.26 L [place] # (Auto) 0.72 H Eos # (Auto) 0.00 Baso # (Auto) 0.02 Neutrophils % (Manual) Lymphocytes % (Manual) Monocytes % (Manual) Neutrophils # (Manual) Total Absolute Neuts Lymphocytes # (Manual) Total Abs Lymphocytes Monocytes # (Manual) PT INR APTT PTT Ratio VBG pH VBG pCO2 VBG pO2 VBG HCO3 VBG O2 Saturation VBG Base Excess Barometric Pressure Sodium 130 L Potassium 3.9 Chloride 95 L Carbon Dioxide 26 Anion Gap 9.0 BUN 49 H Creatinine 2.48 H Est Cr Clr Drug Dosing 56.1 Est GFR ( Amer) 32.6 Est GFR (Non-Af Amer) 28.1 BUN/Creatinine Ratio 19.8 Glucose 305 H* POC Glucose 365 H* Fasting Glucose Lactate Calcium 9.2 Magnesium 1.9 Total Bilirubin AST ALT Alkaline Phosphatase Troponin I Total Protein Albumin Globulin Albumin/Globulin Ratio Beta-Hydroxybutyric Acd 4.95 H Procalcitonin Urine Color Urine Appearance Urine pH Ur Specific [place] Urine Protein Urine Glucose (UA) Urine Ketones Urine Blood Urine Nitrite Urine Bilirubin Urine Urobilinogen Ur Leukocyte Esterase Urine WBC (Auto) Urine RBC (Auto) U Hyaline Cast (Auto) U Epithel Cells (Auto) Urine Bacteria (Auto) Influenza Type A (PCR) Influenza Type B (PCR) 05/26/19 05/26/19 05/26/19 05:27 07:31 07:33 WBC RBC Hgb Hct MCV MCH MCHC RDW Std Deviation RDW Coeff of Мария Plt Count MPV Immature Gran % (Auto) Neut % (Auto) Lymph % (Auto) [place] % (Auto) Eos % (Auto) Baso % (Auto) Immature Gran # (Auto) Neut # (Auto) Lymph # (Auto) [place] # (Auto) Eos # (Auto) Baso # (Auto) Neutrophils % (Manual) Lymphocytes % (Manual) Monocytes % (Manual) Neutrophils # (Manual) Total Absolute Neuts Lymphocytes # (Manual) Total Abs Lymphocytes Monocytes # (Manual) PT INR APTT PTT Ratio VBG pH VBG pCO2 VBG pO2 VBG HCO3 VBG O2 Saturation VBG Base Excess Barometric Pressure Sodium Potassium Chloride Carbon Dioxide Anion Gap BUN Creatinine Est Cr Clr Drug Dosing Est GFR ( Amer) Est GFR (Non-Af Amer) BUN/Creatinine Ratio Glucose POC Glucose 355 H* 364 H* Fasting Glucose Lactate 3.1 H* Calcium Magnesium Total Bilirubin AST ALT Alkaline Phosphatase Troponin I Total Protein Albumin Globulin Albumin/Globulin Ratio Beta-Hydroxybutyric Acd Procalcitonin Urine Color Urine Appearance Urine pH Ur Specific [place] Urine Protein Urine Glucose (UA) Urine Ketones Urine Blood Urine Nitrite Urine Bilirubin Urine Urobilinogen Ur Leukocyte Esterase Urine WBC (Auto) Urine RBC (Auto) U Hyaline Cast (Auto) U Epithel Cells (Auto) Urine Bacteria (Auto) Influenza Type A (PCR) Influenza Type B (PCR) 05/26/19 05/26/19 05/26/19 09:55 10:10 11:05 WBC RBC Hgb Hct MCV MCH MCHC RDW Std Deviation RDW Coeff of Мария Plt Count MPV Immature Gran % (Auto) Neut % (Auto) Lymph % (Auto) [place] % (Auto) Eos % (Auto) Baso % (Auto) Immature Gran # (Auto) Neut # (Auto) Lymph # (Auto) [place] # (Auto) Eos # (Auto) Baso # (Auto) Neutrophils % (Manual) Lymphocytes % (Manual) Monocytes % (Manual) Neutrophils # (Manual) Total Absolute Neuts Lymphocytes # (Manual) Total Abs Lymphocytes Monocytes # (Manual) PT INR APTT PTT Ratio VBG pH VBG pCO2 VBG pO2 VBG HCO3 VBG O2 Saturation VBG Base Excess Barometric Pressure Sodium Potassium Chloride Carbon Dioxide Anion Gap BUN Creatinine Est Cr Clr Drug Dosing Est GFR ( Amer) Est GFR (Non-Af Amer) BUN/Creatinine Ratio Glucose POC Glucose 396 H* 361 H* Fasting Glucose Lactate 3.4 H* Calcium Magnesium Total Bilirubin AST ALT Alkaline Phosphatase Troponin I Total Protein Albumin Globulin Albumin/Globulin Ratio Beta-Hydroxybutyric Acd Procalcitonin Urine Color Urine Appearance Urine pH Ur Specific [place] Urine Protein Urine Glucose (UA) Urine Ketones Urine Blood Urine Nitrite Urine Bilirubin Urine Urobilinogen Ur Leukocyte Esterase Urine WBC (Auto) Urine RBC (Auto) U Hyaline Cast (Auto) U Epithel Cells (Auto) Urine Bacteria (Auto) Influenza Type A (PCR) Influenza Type B (PCR) 05/26/19 05/26/19 05/26/19 12:12 13:06 13:50 WBC RBC Hgb Hct MCV MCH MCHC RDW Std Deviation RDW Coeff of Мария Plt Count MPV Immature Gran % (Auto) Neut % (Auto) Lymph % (Auto) [place] % (Auto) Eos % (Auto) Baso % (Auto) Immature Gran # (Auto) Neut # (Auto) Lymph # (Auto) [place] # (Auto) Eos # (Auto) Baso # (Auto) Neutrophils % (Manual) Lymphocytes % (Manual) Monocytes % (Manual) Neutrophils # (Manual) Total Absolute Neuts Lymphocytes # (Manual) Total Abs Lymphocytes Monocytes # (Manual) PT INR APTT PTT Ratio VBG pH VBG pCO2 VBG pO2 VBG HCO3 VBG O2 Saturation VBG Base Excess Barometric Pressure Sodium 131 L Potassium 3.0 L D Chloride 97 L Carbon Dioxide 25 Anion Gap 9.0 BUN 44 H Creatinine 2.35 H Est Cr Clr Drug Dosing 59.2 Est GFR ( Amer) 34.8 Est GFR (Non-Af Amer) 30.0 BUN/Creatinine Ratio Glucose POC Glucose 390 H* 275 H Fasting Glucose 231 H Lactate Calcium 8.4 L Magnesium 2.0 Total Bilirubin AST ALT Alkaline Phosphatase Troponin I Total Protein Albumin Globulin Albumin/Globulin Ratio Beta-Hydroxybutyric Acd Procalcitonin Urine Color Urine Appearance Urine pH Ur Specific [place] Urine Protein Urine Glucose (UA) Urine Ketones Urine Blood Urine Nitrite Urine Bilirubin Urine Urobilinogen Ur Leukocyte Esterase Urine WBC (Auto) Urine RBC (Auto) U Hyaline Cast (Auto) U Epithel Cells (Auto) Urine Bacteria (Auto) Influenza Type A (PCR) Influenza Type B (PCR) 05/26/19 05/26/19 14:09 15:05 WBC RBC Hgb Hct MCV MCH MCHC RDW Std Deviation RDW Coeff of Мария Plt Count MPV Immature Gran % (Auto) Neut % (Auto) Lymph % (Auto) [place] % (Auto) Eos % (Auto) Baso % (Auto) Immature Gran # (Auto) Neut # (Auto) Lymph # (Auto) [place] # (Auto) Eos # (Auto) Baso # (Auto) Neutrophils % (Manual) Lymphocytes % (Manual) Monocytes % (Manual) Neutrophils # (Manual) Total Absolute Neuts Lymphocytes # (Manual) Total Abs Lymphocytes Monocytes # (Manual) PT INR APTT PTT Ratio VBG pH VBG pCO2 VBG pO2 VBG HCO3 VBG O2 Saturation VBG Base Excess Barometric Pressure Sodium Potassium Chloride Carbon Dioxide Anion Gap BUN Creatinine Est Cr Clr Drug Dosing Est GFR ( Amer) Est GFR (Non-Af Amer) BUN/Creatinine Ratio Glucose POC Glucose 239 H 206 H Fasting Glucose Lactate Calcium Magnesium Total Bilirubin AST ALT Alkaline Phosphatase Troponin I Total Protein Albumin Globulin Albumin/Globulin Ratio Beta-Hydroxybutyric Acd Procalcitonin Urine Color Urine Appearance Urine pH Ur Specific [place] Urine Protein Urine Glucose (UA) Urine Ketones Urine Blood Urine Nitrite Urine Bilirubin Urine Urobilinogen Ur Leukocyte Esterase Urine WBC (Auto) Urine RBC (Auto) U Hyaline Cast (Auto) U Epithel Cells (Auto) Urine Bacteria (Auto) Influenza Type A (PCR) Influenza Type B (PCR) Medications Administered Current Inpatient Medications Acetaminophen (Tylenol) 650 mg PO Q6H PRN PRN Reason: Fever Stop: 06/25/19 04:28 Last Admin: 05/26/19 11:29 Dose: 650 mg Documented by: [facility]iodarone HCl (Cordarone) [facility] [place] [place]: 06/25/19 08:59 Last Admin: 05/26/19 09:24 Dose: 100 mg Documented by: Aspirin (Ecotrin Ectab) 81 mg PO QAM [facility] Stop: 06/25/19 08:59 Last Admin: 05/26/19 09:24 Dose: 81 mg Documented by: Fluticasone Propionate (Flonase) 2 sprays NA BID [facility] Stop: 06/25/19 08:59 Last Admin: 05/26/19 09:25 Dose: 2 sprays Documented by: Fluticasone/Vilanterol (Breo Ellipta 200/25 Mcg Inh) 1 puffs INH DAILY [facility] Stop: 06/25/19 08:59 Last Admin: 05/26/19 09:24 Dose: 1 puffs Documented by: Gabapentin (Neurontin) 200 mg PO TID [facility] Stop: 06/25/19 08:59 Last Admin: 05/26/19 15:12 Dose: 200 mg Documented by: Heparin Sodium (Porcine) (Heparin Sodium (Porcine)) 5,000 units SQ Q8 [facility] Stop: 06/25/19 05:59 Last Admin: 05/26/19 15:11 Dose: 5,000 units Documented by: Promethazine HCl 12.5 mg/ (Sodium Chloride) 50.5 mls @ 202 mls/hr IV Q6H PRN PRN Reason: Nausea And Vomiting Stop: 06/25/19 03:21 Insulin Human Regular 250 (units/ Sodium Chloride) 250 mls @ 13.4 mls/hr IV .[id number] [facility]; Protocol Stop: 06/25/19 09:14 Last Titration: 05/26/19 16:55 Dose: 8 units/hr, 8 mls/hr Documented by: Daptomycin 1,175 mg/ Syringe 23.5 mls @ 11.75 mls/min IV Q24H [facility]; Protocol Stop: 06/10/19 10:59 Cefepime HCl 2,000 mg/ Syringe 20 mls @ 5 mls/min IV Q8H [facility]; Protocol Stop: 06/09/19 15:59 Last Admin: 05/26/19 16:30 Dose: 5 mls/min Documented by: Potassium Chloride (K Enzo / Wtr) 10 meq in 100 mls @ 100 mls/hr IV Q1H [facility] Stop: 05/26/19 20:14 Last Admin: 05/26/19 16:28 Dose: 100 mls/hr Documented by: Amiodarone HCl/Dextrose (Nexterone / D5w) 360 mg in 200 mls @ 33.333 mls/hr IV .Q6H [facility] Stop: 05/26/19 22:29 Last Admin: 05/26/19 16:40 Dose: 1 mg/min, 33.3 mls/hr Documented by: Amiodarone HCl/Dextrose (Nexterone / D5w) 360 mg in 200 mls @ 16.667 mls/hr IV .Q12H [facility] Stop: 06/25/19 22:22 Insulin Aspart (Novolog Flexpen) 0 units SC ACHS [facility] Stop: 06/25/19 11:29 Last Admin: 05/26/19 12:09 Dose: 18 units Documented by: Insulin Glargine (Lantus) 80 units SC BID [facility] Stop: 06/25/19 20:59 Levothyroxine Sodium (Synthroid) 100 mcg PO DAILYBB [facility] Stop: 06/25/19 06:29 Last Admin: 05/26/19 05:42 Dose: 100 mcg Documented by: Metoprolol Succinate (Toprol Xl) 25 mg PO QPM [facility] Stop: 06/25/19 20:59 Miscellaneous Information (Consult) 1 ea N/A UD PRN PRN Reason: Consult Stop: 06/25/19 01:17 Miscellaneous Information (Consult Glycemic Management Pharmacy) 1 ea N/A UD PRN PRN Reason: Consult Stop: 06/25/19 03:43 Miscellaneous Information (Cefepime Consult Active) 1 ea N/A UD PRN PRN Reason: Consult Stop: 06/25/19 03:53 Pantoprazole Sodium (Protonix) 40 mg PO QPM [facility] Stop: 06/25/19 20:59 Tramadol HCl (Ultram) 50 mg PO Q6H PRN PRN Reason: pain Stop: 06/25/19 03:21 Last Admin: 05/26/19 12:26 Dose: 50 mg Documented by:
[2019-05-26] MEDS: CEFEPIME 2,000 MG in SYRINGE 7.5 ML IV SCH ×2 (16:30→23:45)
[2019-05-26] MEDS: AMIODARONE / D5W 360 MG/200 ML BAG IV SCH ×3 (16:34→22:05)
--- NOTE | 2019-05-26 17:22 | Electrocardiogram Report ---
Test Reason : Blood Pressure : / mmHG Vent. Rate : 085 BPM Atrial Rate : 085 BPM P-R Int : 192 ms QRS Dur : 088 ms QT Int : 362 ms P-R-T Axes : 030 068 074 degrees QTc Int : 430 ms Normal sinus rhythm with sinus arrhythmia Anteroseptal infarct (cited on or before 03-NOV-2018) Abnormal ECG When compared with ECG of 03-NOV-2018 13:58, QT has shortened Confirmed by Nader Mcpherson ([id number]) on 05/26/2019 5:21:44 PM Referred By: REFERRED SELF Confirmed By:Austin Mcpherson
[2019-05-26] MEDS: METOPROLOL SUCC 25MG EXT REL TAB PO SCH (20:14)
[2019-05-26] MEDS: PANTOprazole 40 MG TAB PO SCH (20:14)
[2019-05-26] MEDS ORDERED: INSULIN GLARGINE 100 UNIT/ML VIAL SC SCH ×2 (21:00)
[2019-05-26] MEDS ORDERED: LACTATED RINGER'S 1,000 ML IV ONE (21:30)
[2019-05-26] MEDS: HYDROmorphone INJ 0.5 MG/0.5 ML SYR IV PRN (23:45)
[2019-05-27] MEDS: LIDOCAINE 5% 1 PATCH TD SCH (01:14)
[2019-05-27] MEDS ORDERED: DAPTOmycin 700 MG in SYRINGE 0 ML IV SCH (02:00)
--- NOTE | 2019-05-27 05:01 | Hospitalist Progress Note ---
Date of Service May 26, 2019 Subjective Pt seen and examined in his room in [address]. Pt is sitting up on the edge of the bed in [facility]. He feels weak but otherwise denies any chest pain, shortness of breath, abd. pain, nausea, vomiting. 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 Currently having fevers and hyperglycemia, required IV insulin drip for glycemic control. Breathing comfortably on room air. Lungs are clear. Heart sounds are regular. Abdomen is soft, + bowel sounds, obese, nontender. Pt is alert and oriented x3, speaks in full sentences w/o any difficulty. Informed the pt about positive blood cultures. Discussed this with pharmacist as well, they increased daptomycin dose for bacteremia. Later in the afternoon pt became tachycardic in 140s-150s. EKG was obtained, stat BMP and Magnesium levels obtained as well. On telemetry pt appeared to be in afib/ aflutter. Pt was given first PO metoprolol, then IV metoprolol, which did not control his HR. His potassium level in the afternoon was 3.0 and was immediately replaced. However pt went into ventr. tachycardia which led into ICD discharge (shock). Cardiology was consulted for further management. Started pt on IV amiodarone, close monitoring of K level. Results & Data ([facility]) Vital Signs (Past 12 Hours) Vital Signs Temp Pulse Resp BP BP Pulse Ox 05/27/19 04:41 36.7 C 72 20 137/74 96 05/26/19 23:40 37.3 C 73 20 116/71 93 05/26/19 19:34 38.4 C H 84 20 123/71 97
[2019-05-27] MEDS: INSULIN REGULAR 250 UNITS in SODIUM CHLORIDE 0.9% 247.5 ML IV SCH (05:02)
[2019-05-27] MEDS: HYDROmorphone INJ 0.5 MG/0.5 ML SYR IV PRN ×2 (06:15→18:12)
[2019-05-27] MEDS: HEPARIN SOD 5,000 UNIT/0.5 ML VIAL SQ SCH ×3 (06:16→21:18)
[2019-05-27] MEDS: LEVOTHYROXINE SODIUM 100 MCG TABLET PO SCH (06:16)
--- NOTE | 2019-05-27 06:51 | CT Scan Report ---
CT lumbar spine wo con CT DOSE: 682.34 mGycm CLINICAL HISTORY: back pain TECHNIQUE: Helical images were acquired in transverse plane. Reformatted sagittal and coronal images were reviewed. A dose lowering technique was utilized adhering to the principles of ALARA. CONTRAST: No contrast was administered COMPARISON STUDY: 2007 FINDINGS: L1-2 level: There is a mild circumferential disc bulge. There is no significant spinal or foraminal s tenosis L2-3 level: There is a minor circumferential disc bulge. There is no significant spinal or foraminal stenosis L3-4 level: There is a mild circumferential disc bulge. There is mild spinal stenosis. There is no si gnificant foraminal narrowing L4-5 level: There is a mild circumferential disc bulge. There is mild spinal stenosis. There is facet joint arthropathy. There is bilateral foraminal narrowing right more severe than left L5-S1 level: There is a mild circumferential disc bulge. There is no significant spinal stenosis. The re is mild bilateral foraminal narrowing. No acute fractures or traumatic subluxations are visualized. No destructive lesions are evident. IMPRESSION: 1. No acute fractures or traumatic subluxations 2. Multilevel spondylytic changes as described above. ACT 112: Negative or not required by law. Electronically signed by: Roberto Rashid M.D. 05/27/2019 6:49 AM
[2019-05-27 06:59] LABS: BUN Creatinine Ratio 20.7 (10-20); Calcium 8.3 mg/dl (8.5-10.1); Creatinine Clr Calc Pharmacy 73.5 ml/min; Est GFR (Non-African American) 38.8
--- NOTE | 2019-05-27 07:17 | Ultrasound Report ---
RIGHT LOWER EXTREMITY VENOUS DOPPLER HISTORY: Right leg pain. COMPARISON STUDY: None. FINDINGS: There is normal compressibility, flow, and augmentation within the right lower extremity de ep venous system. IMPRESSION: No DVT within the right lower extremity ACT 112: Negative or not required by law. Electronically signed by: Huey Thorne M.D. 05/27/2019 7:16 AM
[2019-05-27 07:36] LABS: Potassium 3.8 mmol/L (3.5-5.1)
[2019-05-27 07:37] LABS: Magnesium 2.3 mg/dl (1.8-2.4)
[2019-05-27] MEDS: AMIODARONE 200 MG TAB PO SCH (08:04)
[2019-05-27] MEDS: GABAPENTIN 100 MG CAP PO SCH ×3 (08:04→19:45)
[2019-05-27] MEDS: FLUTICASONE/VILANTEROL 200/25MCG 14 PUFFS/INHALER INH SCH (08:04)
[2019-05-27] MEDS: ASPIRIN 81 MG ECTAB PO SCH (08:04)
[2019-05-27] MEDS: FLUTICASONE PROPIONATE NA SPR 16 GM BTL SCH ×2 (08:05→19:44)
[2019-05-27] MEDS: INSULIN ASPART 100 UNITS/ML 3 ML PEN SC SCH ×4 (08:06→20:36)
[2019-05-27] MEDS ORDERED: POTASSIUM CHLORIDE 20 MEQ TABCR PO STA ×3 (08:50→14:42)
[2019-05-27] MEDS ORDERED: INSULIN GLARGINE 100 UNIT/ML VIAL SC SCH ×2 (09:00→21:00)
--- NOTE | 2019-05-27 09:10 | Hospitalist Progress Note ---
Date of Service May 27, 2019 Assessment & Plan (1) Severe sepsis: SIRS plus ARF on CRI plus lactic acid elevation Gram positive bacteremia No obvious source - however patient had recent procedure regarding his ICD (March 2019 w/Dr. Dumont), and also has a small wound on his left heel Pt started on daptomycin and cefepime in the ED, after blood cultures positive, discussed with pharmacy appropriate dosage for both medications Rule out endocarditis, hx ICD ID consulted, echo ordered Chronic systolic heart failure, EF 30-34%, TTE 2016) sp ICD, equivocal volume status Some congestion on CXR ARF on CRI Hold home diuretic, ARB for now until creatinine at baseline Monitor creatinine response to careful IV hydration Hx of paroxysmal VT as per records -yesterday (05/26), patient actually went into wide-complex tachycardia, and ICD charged Currently HR well controlled Cardiology consulted, pt started on IV amiodarone Control electrolytes, pt being on IV insulin - drives possible hypokalemia, will monitor closely and replete as needed Hypertension, BP on the lower side on admission secondary to sepsis, now improving DM2 on insulin pump Suboptimal control as of recent outpatient hemoglobin A1c of 8.28 March 2019 Hypoglycemic episode at home likely secondary to poor p.o. intake, sepsis Hold patient's insulin pump, pharmacy glycemic control consult, update hemoglobin A1c - pt started on IV insulin as blood glc level difficult to manage on admission, transition subq insulin Pulmonary hypertension/OHS on BiPAP as per records. DVT prophylaxis with Heparin subcu Full code Subjective Bacteremia - strep positive cocci - ID consulted lactate down to 1.5 Cr down to 1.9 from 2.5 yesterday Patient sitting up in a chair, feeling better today. Patient was admitted yesterday, septic, found bacteremic with gram-positive cocci. Yesterday patient also went into wide-complex tachycardia, and his ICD charged. He was started on IV insulin yesterday due to uncontrolled hyperglycemia. Today his heart rate is well controlled, and and he is afebrile. He continues to feel weak, and unwell. Says that he does not like to lay in bed, as he is not used to sleep in the bed and it hurts his back. He usually sleeps in a recliner chair. Review of Systems Review of Systems: All systems reviewed & are unremarkable except as noted in HPI & below Constitutional: + fatigue and + malaise Respiratory: no cough and no dyspnea Cardiovascular: + edema (chronic); no chest pain and no palpitations Gastrointestinal: no abdominal pain, no nausea and no vomiting Physical Exam Physical Exam: GENERAL: Middle-aged obese male, sitting up in the chair, ill- appearing HEENT: Normocephalic, atraumatic, EOMI, PERRL NECK : Supple, short neck, no tenderness CHEST : Clear to auscultation bilaterally, somewhat decreased breath sounds, no wheezing rhonchi or crackles noted HEART : Regular rate and rhythm, no obvious murmurs ABDOMEN: Positive bowel sounds, some distention, soft, obese, nontender, no guarding EXTREMITIES : Chronic lower extremity edema, right more than left, no LE tenderness, moves all 4 extremities spontaneously SKIN: warm, dry, well perfused, small wound on left heel, no drainage NEUROLOGIC : alert and oriented x3, no facial asymmetry, speech fluent, moves all extremities spontaneously Results & Data ([facility]) Vital Signs (Past 12 Hours) Vital Signs Temp Pulse Resp BP BP Pulse Ox 05/27/19 08:00 36.9 C 72 24 141/81 H 98 05/27/19 04:41 36.7 C 72 20 137/74 96 05/26/19 23:40 37.3 C 73 20 116/71 93 Laboratory Results 05/27/19 05/27/19 05/27/19 Range/Units 07:28 07:17 06:36 VBG pH (7.36-7.41) VBG pCO2 (38-50) mmHg VBG pO2 mmHg VBG HCO3 mmol/L VBG O2 Saturation % VBG Base Excess mEq/L Barometric Pressure mm/Hg Sodium (136-145) mmol/L Potassium 3.8 (3.5-5.1) mmol/L Chloride (98-107) mmol/L Carbon Dioxide (21-32) mmol/L Anion Gap (3-11) BUN (7-18) mg/dl Creatinine (0.6-1.4) mg/dl Est Cr Clr Drug Dosing ml/min Est GFR ( Amer) Est GFR (Non-Af Amer) BUN/Creatinine Ratio (10-20) Glucose (70-99) mg/dl POC Glucose 132 H 124 H (70-99) mg/dl Fasting Glucose (70-99) mg/dl Lactate (0.4-2.0) mmol/L Calcium (8.5-10.1) mg/dl Magnesium 2.3 (1.8-2.4) mg/dl 05/27/19 05/27/19 05/27/19 Range/Units 06:13 06:13 05:31 VBG pH (7.36-7.41) VBG pCO2 (38-50) mmHg VBG pO2 mmHg VBG HCO3 mmol/L VBG O2 Saturation % VBG Base Excess mEq/L Barometric Pressure mm/Hg Sodium 132 L (136-145) mmol/L Potassium (3.5-5.1) mmol/L Chloride 100 (98-107) mmol/L Carbon Dioxide 25 (21-32) mmol/L Anion Gap 7.0 (3-11) BUN 39 H (7-18) mg/dl Creatinine 1.90 H D (0.6-1.4) mg/dl Est Cr Clr Drug Dosing 73.5 ml/min Est GFR ( Amer) 45.0 Est GFR (Non-Af Amer) 38.8 BUN/Creatinine Ratio 20.7 H (10-20) Glucose 123 H (70-99) mg/dl POC Glucose 132 H (70-99) mg/dl Fasting Glucose (70-99) mg/dl Lactate 1.5 (0.4-2.0) mmol/L Calcium 8.3 L (8.5-10.1) mg/dl Magnesium (1.8-2.4) mg/dl 05/27/19 05/27/19 05/27/19 Range/Units 04:33 04:22 03:36 VBG pH (7.36-7.41) VBG pCO2 (38-50) mmHg VBG pO2 mmHg VBG HCO3 mmol/L VBG O2 Saturation % VBG Base Excess mEq/L Barometric Pressure mm/Hg Sodium (136-145) mmol/L Potassium (3.5-5.1) mmol/L Chloride (98-107) mmol/L Carbon Dioxide (21-32) mmol/L Anion Gap (3-11) BUN (7-18) mg/dl Creatinine (0.6-1.4) mg/dl Est Cr Clr Drug Dosing ml/min Est GFR ( Amer) Est GFR (Non-Af Amer) BUN/Creatinine Ratio (10-20) Glucose (70-99) mg/dl POC Glucose 123 H 96 104 H (70-99) mg/dl Fasting Glucose (70-99) mg/dl Lactate (0.4-2.0) mmol/L Calcium (8.5-10.1) mg/dl Magnesium (1.8-2.4) mg/dl 05/27/19 05/27/19 05/26/19 Range/Units 02:01 01:04 23:42 VBG pH (7.36-7.41) VBG pCO2 (38-50) mmHg VBG pO2 mmHg VBG HCO3 mmol/L VBG O2 Saturation % VBG Base Excess mEq/L Barometric Pressure mm/Hg Sodium (136-145) mmol/L Potassium (3.5-5.1) mmol/L Chloride (98-107) mmol/L Carbon Dioxide (21-32) mmol/L Anion Gap (3-11) BUN (7-18) mg/dl Creatinine (0.6-1.4) mg/dl Est Cr Clr Drug Dosing ml/min Est GFR ( Amer) Est GFR (Non-Af Amer) BUN/Creatinine Ratio (20) Glucose (70-99) mg/dl POC Glucose 131 H 298 H 133 H (70-99) mg/dl Fasting Glucose (70-99) mg/dl Lactate (0.4-2.0) mmol/L Calcium (8.5-10.1) mg/dl Magnesium (1.8-2.4) mg/dl 05/26/19 05/26/19 05/26/19 Range/Units 22:05 21:05 20:03 VBG pH (7.36-7.41) VBG pCO2 (38-50) mmHg VBG pO2 mmHg VBG HCO3 mmol/L VBG O2 Saturation % VBG Base Excess mEq/L Barometric Pressure mm/Hg Sodium (136-145) mmol/L Potassium (3.5-5.1) mmol/L Chloride (98-107) mmol/L Carbon Dioxide (21-32) mmol/L Anion Gap (3-11) BUN (7-18) mg/dl Creatinine (0.6-1.4) mg/dl Est Cr Clr Drug Dosing ml/min Est GFR ( Amer) Est GFR (Non-Af Amer) BUN/Creatinine Ratio (10-20) Glucose (70-99) mg/dl POC Glucose 171 H 174 H 183 H (70-99) mg/dl Fasting Glucose (70-99) mg/dl Lactate (0.4-2.0) mmol/L Calcium (8.5-10.1) mg/dl Magnesium (1.8-2.4) mg/dl 05/26/19 05/26/19 05/26/19 Range/Units 19:56 19:03 18:02 VBG pH (7.36-7.41) VBG pCO2 (38-50) mmHg VBG pO2 mmHg VBG HCO3 mmol/L VBG O2 Saturation % VBG Base Excess mEq/L Barometric Pressure mm/Hg Sodium (136-145) mmol/L Potassium (3.5-5.1) mmol/L Chloride (98-107) mmol/L Carbon Dioxide (21-32) mmol/L Anion Gap (3-11) BUN (7-18) mg/dl Creatinine (0.6-1.4) mg/dl Est Cr Clr Drug Dosing ml/min Est GFR ( Amer) Est GFR (Non-Af Amer) BUN/Creatinine Ratio (-20) Glucose (70-99) mg/dl POC Glucose 182 H 249 H (70-99) mg/dl Fasting Glucose (70-99) mg/dl Lactate 2.8 H* (0.4-2.0) mmol/L Calcium (8.5-10.1) mg/dl Magnesium (1.8-2.4) mg/dl 05/26/19 05/26/19 05/26/19 Range/Units 17:55 16:22 15:05 VBG pH (7.36-7.41) VBG pCO2 (38-50) mmHg VBG pO2 mmHg VBG HCO3 mmol/L VBG O2 Saturation % VBG Base Excess mEq/L Barometric Pressure mm/Hg Sodium (136-145) mmol/L Potassium 3.4 L (3.5-5.1) mmol/L Chloride (98-107) mmol/L Carbon Dioxide (21-32) mmol/L Anion Gap (3-11) BUN (7-18) mg/dl Creatinine (0.6-1.4) mg/dl Est Cr Clr Drug Dosing ml/min Est GFR ( Amer) Est GFR (Non-Af Amer) BUN/Creatinine Ratio (10-20) Glucose (70-99) mg/dl POC Glucose 139 H 206 H (70-99) mg/dl Fasting Glucose (70-99) mg/dl Lactate (0.4-2.0) mmol/L Calcium (8.5-10.1) mg/dl Magnesium (1.8-2.4) mg/dl 05/26/19 05/26/19 05/26/19 Range/Units 14:09 13:50 13:06 VBG pH (7.36-7.41) VBG pCO2 (38-50) mmHg VBG pO2 mmHg VBG HCO3 mmol/L VBG O2 Saturation % VBG Base Excess mEq/L Barometric Pressure mm/Hg Sodium 131 L (136-145) mmol/L Potassium 3.0 L D (3.5-5.1) mmol/L Chloride 97 L (98-107) mmol/L Carbon Dioxide 25 (21-32) mmol/L Anion Gap 9.0 (3-11) BUN 44 H (7-18) mg/dl Creatinine 2.35 H (0.6-1.4) mg/dl Est Cr Clr Drug Dosing 59.2 ml/min Est GFR ( Amer) 34.8 Est GFR (Non-Af Amer) 30.0 BUN/Creatinine Ratio (10-20) Glucose (70-99) mg/dl POC Glucose 239 H 275 H (70-99) mg/dl Fasting Glucose 231 H (70-99) mg/dl Lactate (0.4-2.0) mmol/L Calcium 8.4 L (8.5-10.1) mg/dl Magnesium 2.0 (1.8-2.4) mg/dl 05/26/19 05/26/19 05/26/19 Range/Units 12:12 11:05 10:10 VBG pH (7.36-7.41) VBG pCO2 (38-50) mmHg VBG pO2 mmHg VBG HCO3 mmol/L VBG O2 Saturation % VBG Base Excess mEq/L Barometric Pressure mm/Hg Sodium (136-145) mmol/L Potassium (3.5-5.1) mmol/L Chloride (98-107) mmol/L Carbon Dioxide (21-32) mmol/L Anion Gap (3-11) BUN (7-18) mg/dl Creatinine (0.6-1.4) mg/dl Est Cr Clr Drug Dosing ml/min Est GFR ( Amer) Est GFR (Non-Af Amer) BUN/Creatinine Ratio (10-20) Glucose (70-99) mg/dl POC Glucose 390 H* 361 H* (70-99) mg/dl Fasting Glucose (70-99) mg/dl Lactate 3.4 H* (0.4-2.0) mmol/L Calcium (8.5-10.1) mg/dl Magnesium (1.8-2.4) mg/dl 05/26/19 05/25/19 05/25/19 Range/Units 09:55 21:53 21:53 VBG pH 7.40 (7.36-7.41) VBG pCO2 45 (38-50) mmHg VBG pO2 29 mmHg VBG HCO3 27 mmol/L VBG O2 Saturation < 60.0 % VBG Base Excess 2.0 mEq/L Barometric Pressure 736.1 mm/Hg Sodium (136-145) mmol/L Potassium (3.5-5.1) mmol/L Chloride (98-107) mmol/L Carbon Dioxide (21-32) mmol/L Anion Gap (3-11) BUN (7-18) mg/dl Creatinine (0.6-1.4) mg/dl Est Cr Clr Drug Dosing ml/min Est GFR ( Amer) Est GFR (Non-Af Amer) BUN/Creatinine Ratio (10-20) Glucose (70-99) mg/dl POC Glucose 396 H* (70-99) mg/dl Fasting Glucose (70-99) mg/dl Lactate 2.9 H* (0.4-2.0) mmol/L Calcium (8.5-10.1) mg/dl Magnesium (1.8-2.4) mg/dl Medications Administered Current Inpatient Medications Acetaminophen (Tylenol) 650 mg PO Q6H PRN PRN Reason: Fever Stop: 06/25/19 04:28 Last Admin: 05/26/19 20:16 Dose: 650 mg Documented by: [facility] (C[facility]) [facility] [place]: 06/25/19 08:59 Last Admin: 05/27/19 08:04 Dose: 100 mg Documented by: Aspirin (Ecotrin Ectab) 81 mg PO QAM COUNT INCLUDES [facility] Stop: 06/25/19 08:59 Last Admin: 05/27/19 08:04 Dose: 81 mg Documented by: Fluticasone Propionate (Flonase) 2 sprays NA BID COUNT INCLUDES THE [facility] Stop: 06/25/19 08:59 Last Admin: 05/27/19 08:05 Dose: 2 sprays Documented by: Fluticasone/Vilanterol (Breo Ellipta 200/25 Mcg Inh) 1 puffs INH DAILY [facility] Stop: 06/25/19 08:59 Last Admin: 05/27/19 08:04 Dose: 1 puffs Documented by: Gabapentin (Neurontin) 200 mg PO TID COUNT INCLUDES THE [facility] Stop: 06/25/19 08:59 Last Admin: 05/27/19 08:04 Dose: 200 mg Documented by: Heparin Sodium (Porcine) (Heparin Sodium (Porcine)) 5,000 units SQ Q8 [facility] Stop: 06/25/19 05:59 Last Admin: 05/27/19 06:16 Dose: 5,000 units Documented by: Hydromorphone HCl (Dilaudid) 0.5 mg IV Q3H PRN PRN Reason: Pain Stop: 06/09/19 22:31 Last Admin: 05/27/19 06:15 Dose: 0.5 mg Documented by: Promethazine HCl 12.5 mg/ (Sodium Chloride) 50.5 mls @ 202 mls/hr IV Q6H PRN PRN Reason: Nausea And Vomiting Stop: 06/25/19 03:21 Insulin Human Regular 250 (units/ Sodium Chloride) 250 mls @ 7.3 mls/hr IV .Q24H [facility]; Protocol Stop: 06/25/19 09:14 Last Titration: 05/27/19 08:12 Dose: 7.3 units/hr, 7.3 mls/hr Documented by: Daptomycin 1,175 mg/ Syringe 23.5 mls @ 11.75 mls/min IV Q24H [facility]; Protocol Stop: 06/10/19 10:59 Cefepime HCl 2,000 mg/ Syringe 20 mls @ 5 mls/min IV Q8H [facility]; Protocol Stop: 06/09/19 15:59 Last Admin: 05/26/19 23:45 Dose: 5 mls/min Documented by: Amiodarone HCl/Dextrose (Nexterone / D5w) 360 mg in 200 mls @ 16.667 mls/hr IV .Q12H COUNT INCLUDES THE [facility] Stop: 06/25/19 22:22 Last Admin: 05/26/19 22:05 Dose: 0.5 mg/min, 16.7 mls/hr Documented by: Lactated Ringer's (Lr) 1,000 mls @ 50 mls/hr IV .Q20H [facility] Stop: 05/27/19 17:29 Last Admin: 05/26/19 22:05 Dose: 50 mls/hr Documented by: Insulin Aspart (Novolog Flexpen) 0 units SC ACHS [facility] Stop: 06/25/19 11:29 Last Admin: 05/27/19 08:06 Dose: 31 units Documented by: Insulin Glargine (Lantus) 100 units SC BID COUNT [facility]CLUDES [facility] Stop: 06/26/19 08:59 Last Admin: 05/27/19 08:05 Dose: 100 units Documented by: Levothyroxine Sodium (Synthroid) 100 mcg PO DAILYBB COUNT INCLUDES THE [facility] Stop: 06/25/19 06:29 Last Admin: 05/27/19 06:16 Dose: 100 mcg Documented by: Lidocaine (Lidoderm 5%) 1 patch TD QAM COUNT INCLUDES THE [facility] Stop: 06/26/19 00:59 Last Admin: 05/27/19 01:14 Dose: 1 patch Documented by: Metoprolol Succinate (Toprol Xl) 25 mg PO QPM COUNT INCLUDES THE [facility] Stop: 06/25/19 20:59 Last Admin: 05/26/19 20:14 Dose: 25 mg Documented by: Miscellaneous (Remove Lidoderm Patch) 1 ea N/A DAILY@2100 COUNT INCLUDES THE [facility] Stop: 06/26/19 12:59 Miscellaneous Information (Consult) 1 ea N/A UD PRN PRN Reason: Consult Stop: 06/25/19 01:17 Miscellaneous Information (Consult Glycemic Management Pharmacy) 1 ea N/A UD PRN PRN Reason: Consult Stop: 06/25/19 03:43 Miscellaneous Information (Cefepime Consult Active) 1 ea N/A UD PRN PRN Reason: Consult Stop: 06/25/19 03:53 Pantoprazole Sodium (Protonix) 40 mg PO QPM COUNT INCLUDES THE [facility] Stop: 06/25/19 20:59 Last Admin: 05/26/19 20:14 Dose: 40 mg Documented by: Potassium Chloride (Klor-Con M20) 40 meq PO NOW STA Stop: 05/27/19 09:06 Tramadol HCl (Ultram) 50 mg PO Q6H PRN PRN Reason: pain Stop: 06/25/19 03:21 Last Admin: 05/26/19 22:02 Dose: 50 mg Documented by:
[2019-05-27] MEDS ORDERED: Nursing to Pharmacy Communication ONE (09:15)
[2019-05-27] MEDS: CEFEPIME 2,000 MG in SYRINGE 7.5 ML IV SCH (09:20)
[2019-05-27] MEDS: AMIODARONE / D5W 360 MG/200 ML BAG IV SCH (09:28)
--- NOTE | 2019-05-27 10:36 | Cardiology Progress Note ---
Date of Service May 27, 2019 Assessment & Plan (1) Wide-complex tachycardia: It appears that the patient was in atrial flutter with 2:1 conduction but his rate then increased to the 220s with slight vector change. I reviewed the telemetry strips along with device interrogation with the [employer] public service representative and it does appear that he had atrial flutter that progressed to ventricular tachycardia. His device performed appropriately with antitachycardia pacing that led to a single ICD discharge with conversion back to atrial flutter. I believe this event was a result of his significant hypokalemia in the setting of underlying ischemic cardiomyopathy. His potassium has been corrected overnight. He has had no further arrhythmias or significant ectopy. We will complete 24 hours of amiodarone re-bolused and load and then discontinue the IV and return to his 100 mg p.o. daily. He will be continued on his outpatient metoprolol We will continue to monitor on telemetry for another 24 hours. Recommend keeping a very close watch of his electrolytes and replete as necessary (2) Atrial flutter with rapid ventricular response: He was in sinus rhythm upon presentation but did lapse in atrial flutter. He did convert to normal sinus rhythm on his own with the amiodarone bolus. Most recent device interrogation does not reveal any prolonged episodes of atrial flutter and I doubt that anticoagulation will be necessary at this time but final decision will be made prior to discharge. We will hold off on initiation of anticoagulation at this time. (3) Hypokalemia: Likely precipitant of event. Will be repleted Must be maintained between 4 and 5 (4) Severe sepsis: Antibiotic choice is appropriate and neither daptomycin or cefepime are known QT prolonging agents. Would not make any antibiotic changes from a cardiac standpoint. Obviously will defer underlying treatment to the primary team. (5) CHATO (acute kidney injury): (6) Ischemic cardiomyopathy: Stable (7) NINA on CPAP: (8) Diabetic peripheral neuropathy associated with type 2 diabetes mellitus: Subjective Patient seen and examined out of bed in chair. States that he still does not feel well today with an overwhelming febrile feeling. Cardiac noguera though denies any complaints and specifically denies any chest pain, shortness of breath, palpitations, lightheadedness, dizziness or syncope. He has not had any further firings of his ICD overnight. Telemetry reviewed: Converted to normal sinus rhythm from atrial flutter last p.m. has been in normal sinus rhythm without arrhythmia or significant ectopy. Review of Systems Review of Systems: All systems reviewed & are unremarkable except as noted in HPI & below Physical Exam Physical Exam: General: Awake, alert and oriented x 3. No acute distress. HEENT: Normocephalic, atraumatic. Pupils equal, round and reactive to light and accommodation. Extraocular muscles are intact. Anicteric sclera. Moist mucous membranes. Neck: No JVD. No bruit. Cardiovascular: Regular. Positive S-4. Normal S-1 and S-2. No S-3. No murmurs or rubs. Pulmonary: Clear to auscultation B/L. No rales, rhonchi or wheezing Abdomen: Bowel sounds x 4, soft. No rebound, guarding or tenderness. No organomegaly. Extremities: No clubbing, cyanosis or edema. +2 pedal pulses bilaterally. Skin: Warm and dry. Results & Data Vital Signs (Past 12 Hours) Vital Signs Temp Pulse Pulse Resp BP BP Pulse Ox 05/27/19 08:00 36.9 C 65 72 24 141/81 H 98 05/27/19 04:41 36.7 C 72 20 137/74 96 05/26/19 23:40 37.3 C 73 20 116/71 93
[2019-05-27] MEDS ORDERED: DAPTOMYCIN IV SCH (11:00)
--- NOTE | 2019-05-27 12:39 | Infectious Disease Consult ---
Date of Consultation May 27, 2019 Assessment & Plan (1) Gram positive sepsis: continue dapto for now, cultures now growing GGS, likely skin source. echo negative, repeat blood cultures negative, hopefully can treat with po abx if repeat blood cultures negative, will stop cefepime. History of Present Illness Attending Physician: Sagar Milner pt admitted with f/c. c/o b/l leg pain and swelling. in ER had temp 38.4. has had persistent fevers, 39.5 overnight. wbc 33, now 26, creaet improved to 1.9 Flu swab and ua negative in ER. 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 blood cultures done in ER 05/25, growing gpc in chains, no repeat cultures done. Echo negative on 05/26. no cp, sob, cough, no abd pain, no n/v/d. oob to chair eating lunch on my exam. no gu symptoms. tolerating abx. on cefepime and dapto. Allergies Allergy/AdvReac Type Severity Reaction Status Date / Time benzonatate AdvReac Intermediate choking, Verified 05/26/19 00:26 gagging Home Medications Home Medications Medication Instructions Recorded Confirmed Type aspirin 81 mg tablet,delayed 81 mg PO QAM 12/21/17 05/26/19 History release atorvastatin 80 mg tablet 80 mg PO QPM 12/21/17 05/26/19 History bumetanide 1 mg tablet 1 mg PO BID 12/21/17 05/26/19 History fluticasone propionate 50 2 sprays INTNAS BID gm 12/21/17 05/26/19 History mcg/actuation nasal spray,suspension levothyroxine 100 mcg capsule 100 mcg PO QAM 12/21/17 05/26/19 History losartan 25 mg tablet 25 mg PO QAM 12/21/17 05/26/19 History magnesium oxide 400 mg PO QAM cap 12/21/17 05/26/19 History metolazone 5 mg tablet 5 mg PO 3XWK tab 12/21/17 05/26/19 History metoprolol succinate 50 mg capsule 50 mg PO QPM 12/21/17 05/26/19 History sprinkle, ext. release 24 hr mometasone-formoterol HFA 200 2 puffs INH BID 12/21/17 05/26/19 History mcg-5 mcg/actuation aerosol inhaler nitroglycerin 0.4 mg sublingual 0.4 mg SL Q5M PRN 12/21/17 05/26/19 History tablet omeprazole 20 mg capsule,delayed 20 mg PO QPM 12/21/17 05/26/19 History release spironolactone 25 mg tablet 25 mg PO QAM 12/21/17 05/26/19 History tramadol 50 mg tablet 50 mg PO Q6H PRN 12/21/17 05/26/19 History amiodarone 100 mg PO QAM 10/20/18 05/26/19 History Trulicity 1.5 mg SQ WK 12/23/18 05/26/19 History ergocalciferol (vitamin D2) 5,000 unit PO WK 04/12/19 05/26/19 History gabapentin 300 mg PO TID 04/12/19 05/26/19 History hyoscyamine sulfate [Levsin] 0.125 mg PO TID 04/12/19 05/26/19 History potassium chloride [Klor-Con M20] 40 meq PO BID 04/12/19 05/26/19 History insulin aspart U-100 [Novolog 0 unit CONTINUOUS SUBCUTANEOUS 05/26/19 05/26/19 History U-100 Insulin aspart] INFUSION CONTINOUS Patient History Medical History Asthma Dulera BID, very rare albuterol inhaler use, "maybe once per year" Cardiac defibrillator in situ [employer], implanted 06/01/12 for low EF; most recent interrogation 11/09/18. Battery reserve adequate, but reaching PRISCILA, and patient to have re-checked in 1 month. H/O 10 discharges in one day 2/2 change in diuretic causing acute electrolyte imbalance and pVT. CKD (chronic kidney disease) stage 3, GFR 30-59 ml/min Baseline Cr 1.6-1.7 Diabetes mellitus with diabetic polyneuropathy Dyslipidemia GERD (gastroesophageal reflux disease) HTN (hypertension) Hx of myocardial infarction [place]. 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 Hx of osteomyelitis Toe, ~3yrs ago. Amputated. Hypothyroid (Chronic) Ischemic cardiomyopathy (Chronic) EF 30-34%, s/p ICD Mass LEFT FOOT Morbid obesity NINA on CPAP Peripheral edema Chronic B/L Ventricular tachycardia Surgical History H/O shoulder surgery History of colonoscopy History of sinus surgery Hx of amputation of lesser toe Hx of tonsillectomy Family History Sister Family history of diabetes mellitus 2 Grandmother (Maternal) Family history of diabetes mellitus Grandfather (Maternal) Family history of diabetes mellitus Other No family history of adverse response to anesthesia Social History Preferred Language: [place] Communication Ability: Effective Group Fitness Instructor Required: No Beliefs That Will Affect Care: None Current Living Situation: Spouse Feels Safe at Home: Yes Safety Concerns: Feels Safe At This Time Smoking Status: Never smoker Second Hand Exposure: Yes (/parents smoke) ; Hx Alcohol Use: Yes Alcohol type: hard liquor Hx Substance Use: No Review of Systems Review of Systems: All systems reviewed & are unremarkable except as noted in HPI & below Physical Exam Constitutional: WD/WN, vitals as above + morbidly obese Eyes: PERRL, conjunctivae normal, anicteric sclerae ENMT: external ear and nose normal, oropharynx normal Neck: trachea midline, no thyromegaly normal visual inspection Respiratory: normal respiratory effort, lungs clear to auscultation Cardiovascular: RRR, no murmur, no edema Gastrointestinal (Abdomen): normal bowel sounds, soft, nontender, no hepatosplenomegaly Musculoskeletal: no cyanosis or clubbing, extremities motor strength 5/5 Skin: no rashes, warm and dry + erythema (chronic appearing discoloration b/l le) and + excoriations Psychiatric: A+Ox3, euthymic affect Results & Data Vital Signs (Past 12 Hours) Vital Signs Temp Pulse Pulse Resp BP BP Pulse Ox 05/27/19 11:23 37.3 C 71 20 129/79 95 05/27/19 08:00 36.9 C 65 72 24 141/81 H 98 05/27/19 04:41 36.7 C 72 20 137/74 96 Laboratory Results Microbiology 05/25/19 21:53 Blood Aerobic Blood Culture - Preliminary No growth in Aerobic bottle after 24 hours. 05/25/19 21:53 Blood Anaerobic Blood Culture - Preliminary Group G Beta Strep 05/25/19 21:57 Blood Aerobic Blood Culture - Preliminary Group G Beta Strep 05/25/19 21:57 Blood Anaerobic Blood Culture - Preliminary No growth in Anaerobic bottle after 24 hours. PG Care Time/CCT Total # of Minutes Spent Total Time Spent with Patient: Total time spent is greater than 50% in coordination of care (as documented) at patient's floor/unit and/or counseling patient: Coding Level of Care Code 43818 Inpt Consult Level 4 Diagnoses Gram positive sepsis A41.89
--- NOTE | 2019-05-27 13:14 | Electrocardiogram Report ---
Test Reason : Blood Pressure : / mmHG Vent. Rate : 139 BPM Atrial Rate : 089 BPM P-R Int : 104 ms QRS Dur : 132 ms QT Int : 410 ms P-R-T Axes : 000 106 -48 degrees QTc Int : 623 ms Poor data quality, interpretation may be adversely affected Atrial fibrillation with aberrant conduction versus VT Right bundle branch block Lateral infarct , age undetermined Marked T wave abnormality, consider inferior ischemia Abnormal ECG Confirmed by Nader Mcpherson ([id number]) on 05/27/2019 1:14:18 PM Referred By: REFERRED SELF Confirmed By:Austin Mcpherson
--- NOTE | 2019-05-27 13:15 | Electrocardiogram Report ---
Test Reason : Blood Pressure : / mmHG Vent. Rate : 149 BPM Atrial Rate : 149 BPM P-R Int : 000 ms QRS Dur : 140 ms QT Int : 372 ms P-R-T Axes : 000 105 -56 degrees QTc Int : 585 ms Ventricular tachycardia Abnormal ECG When compared with ECG of 25-MAY-2019 21:45, (unconfirmed) Wide QRS tachycardia has replaced Sinus rhythm Vent. rate has increased BY 64 BPM Confirmed by Nader Mcpherson ([id number]) on 05/27/2019 1:15:23 PM Referred By: REFERRED SELF Confirmed By:Austin Mcpherson
--- NOTE | 2019-05-27 13:16 | Electrocardiogram Report ---
Test Reason : Blood Pressure : / mmHG Vent. Rate : 151 BPM Atrial Rate : 000 BPM P-R Int : 000 ms QRS Dur : 142 ms QT Int : 358 ms P-R-T Axes : 000 113 -56 degrees QTc Int : 567 ms Likely ventricular tachycardia although SVT with aberrancy (AFL) cannot be excluded Non-specific intra-ventricular conduction block Inferior infarct , age undetermined Anterolateral infarct , age undetermined Abnormal ECG When compared with ECG of 26-MAY-2019 13:35, (unconfirmed) Fusion complexes are now Present Premature ventricular complexes are no longer Present Confirmed by Nader Mcpherson ([id number]) on 05/27/2019 1:16:02 PM Referred By: REFERRED SELF Confirmed By:Austin Mcpherson
[2019-05-27 13:24] LABS: BUN Creatinine Ratio 22.3 (10-20); Calcium 8.6 mg/dl (8.5-10.1); Creatinine Clr Calc Pharmacy 73.9 ml/min; Est GFR (African American) 45.3; Est GFR (Non-African American) 39.1
[2019-05-27] MEDS ORDERED: INSULIN GLARGINE 100 UNIT/ML VIAL SC ONE (13:30)
[2019-05-27] MEDS: TRAMADOL HCL 50 MG TABLET PO PRN (13:50)
--- NOTE | 2019-05-27 13:57 | Pharmacy Report ---
Pharmacy Glycemic Short Note 2 - Date of Service May 27, 2019 - Glycemic Short BSG Results (Last 24 hours): 05/26/19 05/26/19 05/26/19 13:50 14:09 15:05 Glucose POC Glucose 239 H 206 H Fasting Glucose 231 H 05/26/19 05/26/19 05/26/19 16:22 18:02 19:03 Glucose POC Glucose 139 H 249 H 182 H Fasting Glucose 05/26/19 05/26/19 05/26/19 20:03 21:05 22:05 Glucose POC Glucose 183 H 174 H 171 H Fasting Glucose 05/26/19 05/27/19 05/27/19 23:42 01:04 02:01 Glucose POC Glucose 133 H 298 H 131 H Fasting Glucose 05/27/19 05/27/19 05/27/19 03:36 04:22 04:33 Glucose POC Glucose 104 H 96 123 H Fasting Glucose 05/27/19 05/27/19 05/27/19 05:31 06:13 06:36 Glucose 123 H POC Glucose 132 H 124 H Fasting Glucose 05/27/19 05/27/19 05/27/19 07:28 11:33 12:48 Glucose 178 H POC Glucose 132 H 236 H Fasting Glucose OUTPATIENT ANTIDIABETIC REGIMEN: * Patient uses Tandem insulin pump (Novolog U100 insulin used in pump) * Total daily doses reviewed and ranged 160-250units/day (most of which are basal doses): Basal rate 7units/hr (168 units/day) * It appears that his pump delivers mostly basal insulin doses as he admits to rarely bolusing himself and when he does bolus he stated he can only give up to 25units per bolus dose. He does have a CGM that will suspend his basal rate when trending low. * A1c = 9% 11/03/18 ASSESSMENT: 05/27 * Insulin drip continues at this time, insulin infusion running at rates of 7-13 units/hr * Patient has received > 400units from insulin drip and SQ insulin doses * Will attempt to convert the patient to a SQ regimen this afternoon * Will trial Lantus dose that he reports using prior to beginning the insulin pump 3 months ago (ie 100 units Lantus BID). I suspect he may ultimately require more than this given insulin infusion rates - however this is a starting point and we can give more if needed * Novolog CF and CR doses will be based upon an anticipated total daily insulin dose of ~300+ units/day * Will check A1c given uncertain level of control over last several months 05/26 * IV insulin infusion started due to sepsis/bacteremia dx and BSGs trending upwards in the mid-upper 300's * No AG acidosis noted on labs, however lactate is trending upwards * Plan is to continue IV insulin drip to gain quick control of hyperglycemic state. Will continue to administer basal insulin w/ the IV insulin drip to allow for easier transition back to SQ given highly insulin resistant state. * In the past, he had U500 in his insulin pump and had used upwards of 300units/day. Prior to using this insulin pump, he was using Lantus 100 units BID and Novolog 60 units per meal. I anticipate his total daily insulin requirement to be 300+ units/day. PLAN FOR INPATIENT GLYCEMIC CONTROL: * Continue IV insulin infusion, goal range 110-180mg/dL * Basal insulin * Lantus 100 units SQ x 1 now - discontinue the insulin drip 4 hrs after this dose given * Then use Lantus 100 units SQ BID * If BSG > 200 at bedtime, will give 20 units additional * Bolus insulin * BSGs ACHS and at 0000 + 0400 * Goal range: 110-140mg/dL once insulin drip d/c'd * Correction factor: 5mg/dL/unit * Nutritional / Prandial insulin per carb ratio of 1 unit per 1.5 grams CHO consumed PLAN FOR DISCHARGE: * to be determined. it seems that patient has some difficulties with using his insulin pump and may not be bolusing himself appropriately and his pump reservoir may not hold a full 24 hr supply of insulin to fit his needs.
[2019-05-27 14:05] LABS: Estimated Average Glucose 197 mg/dl; Hemoglobin A1C 8.5 % (4.5-5.6)
[2019-05-27] MEDS ORDERED: [UNRECOGNIZED DRUG - REMARK] ONE (16:40)
[2019-05-27] MEDS ORDERED: [UNRECOGNIZED DRUG - REMARK] ONE (17:30)
[2019-05-27] MEDS: PANTOprazole 40 MG TAB PO SCH (19:45)
[2019-05-27] MEDS: METOPROLOL SUCC 25MG EXT REL TAB PO SCH (19:45)
[2019-05-28] MEDS: INSULIN ASPART 100 UNITS/ML 3 ML PEN SC SCH ×7 (00:19→22:07)
[2019-05-28] MEDS: HYDROmorphone INJ 0.5 MG/0.5 ML SYR IV PRN ×5 (04:29→22:51)
[2019-05-28 05:25] LABS: BUN Creatinine Ratio 21.5 (10-20); Calcium 8.6 mg/dl (8.5-10.1); Creatinine Clr Calc Pharmacy 85.1 ml/min; Est GFR (African American) 53.8; Est GFR (Non-African American) 46.4; Magnesium 2.5 mg/dl (1.8-2.4)
[2019-05-28 05:29] LABS: Basophils # (auto) 0.03 K/uL (0-0.2); Basophils % (auto) 0.3 %; Eosinophils # (auto) 0.03 K/uL (0-0.5); Eosinophils % (auto) 0.3 %; Hematocrit (blood only) 39.7 % (42-52); Hemoglobin 13.3 g/dL (14.0-18.0); Immature Granulocytes # (auto) 0.05 K/uL (0.00-0.02); Immature Granulocytes % (auto) 0.6 %; Lymphocytes # (auto) 0.62 K/uL (1.2-3.4); Mean Corpuscular Hemoglobin 29.8 pg (25-34); Mean Corpuscular Hgb Conc 33.5 g/dL (32-36); Mean Corpuscular Volume 88.8 fL (80-100); Mean Platelet Volume 10.8 fL (7.4-10.4); Monocytes # (auto) 0.88 K/uL (0.11-0.59); Neutrophils # (auto) 7.22 K/uL (1.4-6.5); Neutrophils % (auto) 81.8 %; Platelet Count 113 K/uL (130-400); RDW Coefficient of Variation 15.5 % (11.5-14.5); Red Blood Count 4.47 M/uL (4.7-6.1); White Blood Count 8.83 K/uL (4.8-10.8)
[2019-05-28] MEDS: HEPARIN SOD 5,000 UNIT/0.5 ML VIAL SQ SCH ×3 (05:29→22:21)
[2019-05-28] MEDS: LEVOTHYROXINE SODIUM 100 MCG TABLET PO SCH (05:29)
[2019-05-28] MEDS ORDERED: LACTATED RINGER'S 1,000 ML IV ONE (06:28)
--- NOTE | 2019-05-28 06:29 | Communication Note ---
Date of Service: May 28, 2019 Made aware of a.m. CPK elevation AP Mild rhabdomyolysis ? secondary to daptomycin Rx Hold daptomycin Ceftriaxone Rx for group G streptococcal bacteremia/cellulitis for now Follow CPK, gentle IV hydration Will relay to AM provider.
[2019-05-28] MEDS ORDERED: NSS + 20MEQ KCL 20 MEQ/1,000 ML BAG IV ONE (07:00)
[2019-05-28] MEDS: GABAPENTIN 100 MG CAP PO SCH ×2 (07:40→12:26)
[2019-05-28] MEDS: ASPIRIN 81 MG ECTAB PO SCH (07:40)
[2019-05-28] MEDS: AMIODARONE 200 MG TAB PO SCH (07:40)
[2019-05-28] MEDS: FLUTICASONE PROPIONATE NA SPR 16 GM BTL SCH ×2 (07:41→19:37)
[2019-05-28] MEDS: LIDOCAINE 5% 1 PATCH TD SCH (07:41)
[2019-05-28] MEDS: FLUTICASONE/VILANTEROL 200/25MCG 14 PUFFS/INHALER INH SCH (07:41)
[2019-05-28] MEDS: TRAMADOL HCL 50 MG TABLET PO PRN ×2 (07:56→14:14)
[2019-05-28] MEDS ORDERED: cefTRIAXone SODIUM 2,000 MG in DEXTROSE 5% 50 ML IV SCH (09:00)
[2019-05-28] MEDS ORDERED: INSULIN GLARGINE 100 UNIT/ML VIAL SC SCH ×2 (09:00)
[2019-05-28] MEDS ORDERED: BUMETANIDE 1 MG TAB PO ONE (09:13)
--- NOTE | 2019-05-28 09:16 | Hospitalist Progress Note ---
Date of Service May 28, 2019 Assessment & Plan (1) Severe sepsis: SIRS plus ARF on CRI plus lactic acid elevation Group G strep bacteremia No obvious source - however patient had recent procedure regarding his ICD (March 2019 w/Dr. Dumont), and also has a small wound on his left heel Pt started on daptomycin and cefepime in the ED, after blood cultures positive, discussed with pharmacy appropriate dosage for both medications Rule out endocarditis, hx ICD ID consulte, echo ordered Echo - negative for vegetations but poorly visualized valvular structures without significant stenosis or regurgitation by Doppler. WBC 33K >>8K, repeat blood cltx - pending ID evaluated the patient yesterday, given that Echo negative, and blood culture positive for Group G Strep, cefepime was stopped, likely patient will be able to be treated w/ PO antibiotics if repeat blood cltx negative Now concern for rhabdo d/t daptomycin and so daptomycin discontinued overnight, pt started on ceftriaxone, given that sensitivities from blood cltx - GGS - pansensitive Chronic systolic heart failure, EF 30-34%, TTE 2017) sp ICD, equivocal volume status Some congestion on CXR Echo repeated - mostly unchanged from previous study of 2017, mild dilatation of the LV chamber with moderate concentric LVH and the wall segments not akinetic. Slightly reduced LV systolic function, EF 30 to 35. There is a large sized apical, septal and anteroseptal wall motion normality with akinesis of the segments. Poorly visualized valvular structures without significant stenosis or regurgitation by Doppler. Cardiology consulted Cont. to closely monitor fluid status ARF on CRI Hold home diuretic, ARB for now until creatinine at baseline Monitor creatinine response to careful IV hydration Cr much improved, down to 1.6 from 2.75 (1.6 seem to be baseline) RLE pain and new rash - developed overnight - Doppler obtained - negative for DVT - rash spreading laterally from medial knee area quite fast and skin very tender to touch - concern for possible new onset of shingles - will start valacyclovir - cont. antibiotics given bacteremia and poss. cellulitis of RLE - keep area cool, dry and clean Hx of paroxysmal VT as per records - on dy of admission (05/26), patient actually went into wide-complex tachycardia, and ICD charged Currently HR well controlled Cardiology consulted, pt started on IV amiodarone Control electrolytes, pt being on IV insulin - drives possible hypokalemia, will monitor closely and replete as needed, switch to subq insulin Hypertension BP on the lower side on admission secondary to sepsis, now improving DM2 on insulin pump Suboptimal control as of recent outpatient hemoglobin A1c of 8.28 March 2019 Hypoglycemic episode at home likely secondary to poor p.o. intake, sepsis Hold patient's insulin pump, pharmacy glycemic control consult, update hemoglobin A1c - pt started on IV insulin as blood glc level difficult to manage on admission, transition to subq insulin Pulmonary hypertension/OHS cont. cpap/bipap DVT prophylaxis with Heparin subcu Full code Subjective Overnight, icu rn made aware of CPK elevation at 400. Given it may be secondary to daptomycin, daptomycin was put on hold, and ceftriaxone for group G strep bacteremia/cellulitis was started Pt developed pain in his RLE and rash started at R knee. Pt says he noticed it around 4 AM. Ceftriaxone was not given until 9.30 AM, and no other new medications were given overnight. WBC normalized ( WBC 8.8K, down from 33K) Cr 1.6 (down from 2.75 on admission), per chart review, seems as 1.6 may be pt's baseline ID evaluated the patient yesterday, given that the Echo is negative, and blood culture positive for Group G Strep, cefepime was stopped, likely patient will be able to be treated w/ PO antibiotics if repeat blood cltx negative Review of Systems Review of Systems: All systems reviewed & are unremarkable except as noted in HPI & below As per HPI, all 10 systems reviewed, all other ROS negative Constitutional: + chills, + fatigue and + malaise Respiratory: no cough and no dyspnea Cardiovascular: + edema (chronic); no chest pain and no palpitations Gastrointestinal: no abdominal pain, no nausea and no vomiting Integumentary: + rash (RLE (started at knee, and spread laterally)) Physical Exam Physical Exam: GENERAL: Middle-aged obese male, sitting up in the chair, ill- appearing HEENT: Normocephalic, atraumatic, EOMI, PERRL NECK : Supple, short neck, no tenderness CHEST : Clear to auscultation bilaterally, somewhat decreased breath sounds, no wheezing rhonchi or crackles noted HEART : Regular rate and rhythm, no obvious murmurs ABDOMEN: Positive bowel sounds, some distention, soft, obese, nontender, no guarding EXTREMITIES : Chronic lower extremity edema, right more than left, RLE thigh with new rash around knee spreading laterally, tender to touch SKIN: warm, dry, well perfused, small wound on left heel, no drainage NEUROLOGIC : alert and oriented x3, no facial asymmetry, speech fluent, moves all extremities spontaneously Results & Data ([facility]) Vital Signs (Past 12 Hours) Vital Signs Temp Pulse Resp BP Pulse Ox 05/28/19 07:55 36.6 C 68 16 143/76 H 99 05/28/19 04:00 36.6 C 66 16 141/81 H 98 05/27/19 23:46 37.0 C 63 19 114/64 94 Laboratory Results 05/28/19 05/28/19 05/28/19 Range/Units 07:31 04:47 04:46 WBC 8.83 (4.8-10.8) K/uL RBC 4.47 L (4.7-6.1) M/uL Hgb 13.3 L (14.0-18.0) g/dL Hct 39.7 L (42-52) % MCV 88.8 (80-100) fL MCH 29.8 (25-34) pg MCHC 33.5 (32-36) g/dL RDW Std Deviation 50.0 H (36.4-46.3) fL RDW Coeff of Мария 15.5 H (11.5-14.5) % Plt Count 113 L (130-400) K/uL MPV 10.8 H (7.4-10.4) fL Immature Gran % (Auto) 0.6 % Neut % (Auto) 81.8 % Lymph % (Auto) 7.0 % [place] % (Auto) 10.0 % Eos % (Auto) 0.3 % Baso % (Auto) 0.3 % Immature Gran # (Auto) 0.05 H (0.00-0.02) K/uL Neut # (Auto) 7.22 H (1.4-6.5) K/uL Lymph # (Auto) 0.62 L (1.2-3.4) K/uL [place] # (Auto) 0.88 H (0.11-0.59) K/uL Eos # (Auto) 0.03 (0-0.5) K/uL Baso # (Auto) 0.03 (0-0.2) K/uL Sodium 134 L (136-145) mmol/L Potassium 4.0 (3.5-5.1) mmol/L Chloride 102 (98-107) mmol/L Carbon Dioxide 28 (21-32) mmol/L Anion Gap 4.0 (3-11) BUN 35 H (7-18) mg/dl Creatinine 1.64 H (0.6-1.4) mg/dl Est Cr Clr Drug Dosing 85.1 ml/min Est GFR ( Amer) 53.8 Est GFR (Non-Af Amer) 46.4 BUN/Creatinine Ratio 21.5 H (10-20) Glucose 132 H (70-99) mg/dl POC Glucose 132 H (70-99) mg/dl Estimat Average Glucose mg/dl Hemoglobin A1c (4.5-5.6) % Calcium 8.6 (8.5-10.1) mg/dl Magnesium 2.5 H (1.8-2.4) mg/dl Total Creatine Kinase 404 H (39-308) U/L 05/28/19 05/27/19 05/27/19 Range/Units 04:06 23:58 19:54 WBC (4.8-10.8) K/uL RBC (4.7-6.1) M/uL Hgb (14.0-18.0) g/dL Hct (42-52) % MCV (80-100) fL MCH (25-34) pg MCHC (32-36) g/dL RDW Std Deviation (36.4-46.3) fL RDW Coeff of Мария (11.5-14.5) % Plt Count (130-400) K/uL MPV (7.4-10.4) fL Immature Gran % (Auto) % Neut % (Auto) % Lymph % (Auto) % [place] % (Auto) % Eos % (Auto) % Baso % (Auto) % Immature Gran # (Auto) (0.00-0.02) K/uL Neut # (Auto) (1.4-6.5) K/uL Lymph # (Auto) (1.2-3.4) K/uL [place] # (Auto) (0.11-0.59) K/uL Eos # (Auto) (0-0.5) K/uL Baso # (Auto) (0-0.2) K/uL Sodium (136-145) mmol/L Potassium (3.5-5.1) mmol/L Chloride (98-107) mmol/L Carbon Dioxide (21-32) mmol/L Anion Gap (3-11) BUN (7-18) mg/dl Creatinine (0.6-1.4) mg/dl Est Cr Clr Drug Dosing ml/min Est GFR ( Amer) Est GFR (Non-Af Amer) BUN/Creatinine Ratio (10-20) Glucose (70-99) mg/dl POC Glucose 118 H 175 H 137 H (70-99) mg/dl Estimat Average Glucose mg/dl Hemoglobin A1c (4.5-5.6) % Calcium (8.5-10.1) mg/dl Magnesium (1.8-2.4) mg/dl Total Creatine Kinase (39-308) U/L 05/27/19 05/27/19 05/27/19 Range/Units 17:02 16:02 15:34 WBC (4.8-10.8) K/uL RBC (4.7-6.1) M/uL Hgb (14.0-18.0) g/dL Hct (42-52) % MCV (80-100) fL MCH (25-34) pg MCHC (32-36) g/dL RDW Std Deviation (36.4-46.3) fL RDW Coeff of Мария (11.5-14.5) % Plt Count (130-400) K/uL MPV (7.4-10.4) fL Immature Gran % (Auto) % Neut % (Auto) % Lymph % (Auto) % [place] % (Auto) % Eos % (Auto) % Baso % (Auto) % Immature Gran # (Auto) (0.00-0.02) K/uL Neut # (Auto) (1.4-6.5) K/uL Lymph # (Auto) (1.2-3.4) K/uL [place] # (Auto) (0.11-0.59) K/uL Eos # (Auto) (0-0.5) K/uL Baso # (Auto) (0-0.2) K/uL Sodium (136-145) mmol/L Potassium (3.5-5.1) mmol/L Chloride (98-107) mmol/L Carbon Dioxide (21-32) mmol/L Anion Gap (3-11) BUN (7-18) mg/dl Creatinine (0.6-1.4) mg/dl Est Cr Clr Drug Dosing ml/min Est GFR ( Amer) Est GFR (Non-Af Amer) BUN/Creatinine Ratio (10-20) Glucose (70-99) mg/dl POC Glucose 115 H 134 H 148 H (70-99) mg/dl Estimat Average Glucose mg/dl Hemoglobin A1c (4.5-5.6) % Calcium (8.5-10.1) mg/dl Magnesium (1.8-2.4) mg/dl Total Creatine Kinase (39-308) U/L 05/27/19 05/27/19 05/27/19 Range/Units 14:49 13:51 13:31 WBC (4.8-10.8) K/uL RBC (4.7-6.1) M/uL Hgb (14.0-18.0) g/dL Hct (42-52) % MCV (80-100) fL MCH (25-34) pg MCHC (32-36) g/dL RDW Std Deviation (36.4-46.3) fL RDW Coeff of Мария (11.5-14.5) % Plt Count (130-400) K/uL MPV (7.4-10.4) fL Immature Gran % (Auto) % Neut % (Auto) % Lymph % (Auto) % [place] % (Auto) % Eos % (Auto) % Baso % (Auto) % Immature Gran # (Auto) (0.00-0.02) K/uL Neut # (Auto) (1.4-6.5) K/uL Lymph # (Auto) (1.2-3.4) K/uL [place] # (Auto) (0.11-0.59) K/uL Eos # (Auto) (0-0.5) K/uL Baso # (Auto) (0-0.2) K/uL Sodium (136-145) mmol/L Potassium 3.7 (3.5-5.1) mmol/L Chloride (98-107) mmol/L Carbon Dioxide (21-32) mmol/L Anion Gap (3-11) BUN (7-18) mg/dl Creatinine (0.6-1.4) mg/dl Est Cr Clr Drug Dosing ml/min Est GFR ( Amer) Est GFR (Non-Af Amer) BUN/Creatinine Ratio (10-20) Glucose (70-99) mg/dl POC Glucose 154 H 171 H (70-99) mg/dl Estimat Average Glucose mg/dl Hemoglobin A1c (4.5-5.6) % Calcium (8.5-10.1) mg/dl Magnesium (1.8-2.4) mg/dl Total Creatine Kinase (39-308) U/L 05/27/19 05/27/19 05/27/19 Range/Units 12:48 12:30 11:33 WBC (4.8-10.8) K/uL RBC (4.7-6.1) M/uL Hgb (14.0-18.0) g/dL Hct (42-52) % MCV (80-100) fL MCH (25-34) pg MCHC (32-36) g/dL RDW Std Deviation (36.4-46.3) fL RDW Coeff of Мария (11.5-14.5) % Plt Count (130-400) K/uL MPV (7.4-10.4) fL Immature Gran % (Auto) % Neut % (Auto) % Lymph % (Auto) % [place] % (Auto) % Eos % (Auto) % Baso % (Auto) % Immature Gran # (Auto) (0.00-0.02) K/uL Neut # (Auto) (1.4-6.5) K/uL Lymph # (Auto) (1.2-3.4) K/uL [place] # (Auto) (0.11-0.59) K/uL Eos # (Auto) (0-0.5) K/uL Baso # (Auto) (0-0.2) K/uL Sodium 131 L (136-145) mmol/L Potassium (3.5-5.1) mmol/L Chloride 99 (98-107) mmol/L Carbon Dioxide 27 (21-32) mmol/L Anion Gap 5.0 (3-11) BUN 42 H (7-18) mg/dl Creatinine 1.89 H (0.6-1.4) mg/dl Est Cr Clr Drug Dosing 73.9 ml/min Est GFR ( Amer) 45.3 Est GFR (Non-Af Amer) 39.1 BUN/Creatinine Ratio 22.3 H (10-20) Glucose 178 H (70-99) mg/dl POC Glucose 193 H 236 H (70-99) mg/dl Estimat Average Glucose mg/dl Hemoglobin A1c (4.5-5.6) % Calcium 8.6 (8.5-10.1) mg/dl Magnesium (1.8-2.4) mg/dl Total Creatine Kinase (39-308) U/L 05/27/19 05/27/19 05/27/19 Range/Units 10:30 09:37 06:13 WBC (4.8-10.8) K/uL RBC (4.7-6.1) M/uL Hgb (14.0-18.0) g/dL Hct (42-52) % MCV (80-100) fL MCH (25-34) pg MCHC (32-36) g/dL RDW Std Deviation (36.4-46.3) fL RDW Coeff of Мария (11.5-14.5) % Plt Count (130-400) K/uL MPV (7.4-10.4) fL Immature Gran % (Auto) % Neut % (Auto) % Lymph % (Auto) % [place] % (Auto) % Eos % (Auto) % Baso % (Auto) % Immature Gran # (Auto) (0.00-0.02) K/uL Neut # (Auto) (1.4-6.5) K/uL Lymph # (Auto) (1.2-3.4) K/uL [place] # (Auto) (0.11-0.59) K/uL Eos # (Auto) (0-0.5) K/uL Baso # (Auto) (0-0.2) K/uL Sodium (136-145) mmol/L Potassium (3.5-5.1) mmol/L Chloride (98-107) mmol/L Carbon Dioxide (21-32) mmol/L Anion Gap (3-11) BUN (7-18) mg/dl Creatinine (0.6-1.4) mg/dl Est Cr Clr Drug Dosing ml/min Est GFR ( Amer) Est GFR (Non-Af Amer) BUN/Creatinine Ratio (10-20) Glucose (70-99) mg/dl POC Glucose 221 H 182 H (70-99) mg/dl Estimat Average Glucose 197 mg/dl Hemoglobin A1c 8.5 H (4.5-5.6) % Calcium (8.5-10.1) mg/dl Magnesium (1.8-2.4) mg/dl Total Creatine Kinase (39-308) U/L Medications Administered Current Inpatient Medications Acetaminophen (Tylenol) 650 mg PO Q6H PRN PRN Reason: Fever Stop: 06/25/19 04:28 Last Admin: 05/26/19 20:16 Dose: 650 mg Documented by: Amiodarone HCl (Cordarone) 100 mg PO QAM [facility] Stop: 06/25/19 08:59 Last Admin: 05/28/19 07:40 Dose: 100 mg Documented by: Aspirin (Ecotrin Ectab) [facility] [place] Stop: 06/25/19 08:59 Last Admin: 05/28/19 07:40 Dose: 81 mg Documented by: Fluticasone Propionate (Flonase) 2 sprays NA BID [facility] Stop: 06/25/19 08:59 Last Admin: 05/28/19 07:41 Dose: 2 sprays Documented by: Fluticasone/Vilanterol (Breo Ellipta 200/25 Mcg Inh) 1 puffs INH DAILY [facility] Stop: 06/25/19 08:59 Last Admin: 05/28/19 07:41 Dose: 1 puffs Documented by: Gabapentin (Neurontin) 200 mg PO TID [facility] Stop: 06/25/19 08:59 Last Admin: 05/28/19 07:40 Dose: 200 mg Documented by: Heparin Sodium (Porcine) (Heparin Sodium (Porcine)) 5,000 units SQ Q8 [facility] Stop: 06/25/19 05:59 Last Admin: 05/28/19 05:29 Dose: 5,000 units Documented by: Hydromorphone HCl (Dilaudid) 0.5 mg IV Q3H PRN PRN Reason: Pain Stop: 06/09/19 22:31 Last Admin: 05/28/19 04:29 Dose: 0.5 mg Documented by: Promethazine HCl 12.5 mg/ (Sodium Chloride) 50.5 mls @ 202 mls/hr IV Q6H PRN PRN Reason: Nausea And Vomiting Stop: 06/25/19 03:21 Daptomycin 1,175 mg/ Syringe 23.5 mls @ 11.75 mls/min IV Q24H [facility]; Protocol Stop: 06/10/19 10:59 Last Admin: 05/27/19 12:04 Dose: 11.75 mls/min Documented by: Ceftriaxone Sodium 2,000 mg/ (Dextrose) 70 mls @ 100 mls/hr IV DAILY [facility]; Protocol Stop: 06/11/19 08:59 Potassium Chloride/Sodium Chloride (Normal Saline W/20 Meq Kcl) 20 meq in 1,000 mls @ 40 mls/hr IV .Q24H ONE Stop: 05/29/19 06:59 Last Admin: 05/28/19 07:40 Dose: 40 mls/hr Documented by: Insulin Aspart (Novolog Flexpen) 0 units SC ACHS [facility] Stop: 06/26/19 20:59 Last Admin: 05/28/19 07:43 Dose: 45 units Documented by: Insulin Aspart (Novolog Flexpen) 0 units SC 0000,[id number] [facility] Stop: 06/27/19 00:00 Last Admin: 05/28/19 04:21 Dose: Not Given Documented by: Insulin Glargine (Lantus) 0 units SC HS [facility]; Protocol Stop: 06/26/19 20:59 Last Admin: 05/27/19 20:36 Dose: Not Given Documented by: Insulin Glargine (Lantus) 100 units SC BID [facility] Stop: 06/27/19 08:59 Last Admin: 05/28/19 07:57 Dose: 100 units Documented by: Levothyroxine Sodium (Synthroid) 100 mcg PO DAILYBB [facility] Stop: 06/25/19 06:29 Last Admin: 05/28/19 05:29 Dose: 100 mcg Documented by: Lidocaine (Lidoderm 5%) 1 patch TD QAM [facility] Stop: 06/26/19 00:59 Last Admin: 05/28/19 07:41 Dose: 1 patch Documented by: Metoprolol Succinate (Toprol Xl) 25 mg PO QPM [facility] Stop: 06/25/19 20:59 Last Admin: 05/27/19 19:45 Dose: 25 mg Documented by: Miscellaneous (Remove Lidoderm Patch) 1 ea N/A DAILY@2100 [facility] Stop: 06/26/19 12:59 Last Admin: 05/27/19 12:04 Dose: Not Given Documented by: Miscellaneous Information (Consult) 1 ea N/A UD PRN PRN Reason: Consult Stop: 06/25/19 01:17 Miscellaneous Information (Consult Glycemic Management Pharmacy) 1 ea N/A UD PRN PRN Reason: Consult Stop: 06/25/19 03:43 Pantoprazole Sodium (Protonix) 40 mg PO QPM [facility] Stop: 06/25/19 20:59 Last Admin: 05/27/19 19:45 Dose: 40 mg Documented by: Tramadol HCl (Ultram) 50 mg PO Q6H PRN PRN Reason: pain Stop: 06/25/19 03:21 Last Admin: 05/28/19 07:56 Dose: 50 mg Documented by:
[2019-05-28] MEDS ORDERED: HYDROmorphone INJ 0.5 MG/0.5 ML SYR IV STA (12:19)
[2019-05-28] MEDS ORDERED: ACETAMINOPHEN 500 MG TAB PO ONE (12:19)
[2019-05-28] MEDS ORDERED: ACETAMINOPHEN 500 MG TAB ONE (12:21)
--- NOTE | 2019-05-28 13:18 | Cardiology Progress Note ---
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 He has been maintaining sinus rhythm. I would continue current treatment Subjective The patient is experiencing some right leg pain. No current cardiac complaints. He has been in sinus rhythm for the past 24 hours. Review of Systems Review of Systems: All systems reviewed & are unremarkable except as noted in HPI & below Nothing additional to add. Physical Exam Physical Exam: General: no acute distress and stated age Head: normocephalic, no masses, lesions, tenderness or abnormalities Eyes: conjunctiva are pink and non-injected, sclera clear Neck: supple, no adenopathy, no bruits, normal jugular venous pulse, no hepatojugular reflux Chest: normal shape and normal respiratory effort Lungs: clear to auscultation and percussion Cardiac Exam: - regular rate & rhythm, no murmurs gallops or rubs - normal S1, normal S2 Pulses: 2(+) throughout Abdomen: abdomen soft, non-tender, no abnormal masses and no hepatosplenomegaly Musculoskeletal: no gait disturbance, no joint inflammation, no deforming arthritis Extremities: no edema and no cyanosis Neuro: grossly normal exam Results & Data Vital Signs (Past 12 Hours) Vital Signs Temp Pulse Pulse Resp BP Pulse Ox 05/28/19 11:09 36.8 C 73 16 145/73 H 96 05/28/19 07:55 36.6 C 68 16 143/76 H 99 05/28/19 04:00 36.6 C 66 16 141/81 H 98 Laboratory Results Laboratory Results - last 24 hr 05/27/19 05/27/19 05/27/19 06:13 09:37 10:30 WBC RBC Hgb Hct MCV MCH MCHC RDW Std Deviation RDW Coeff of Мария Plt Count MPV Immature Gran % (Auto) Neut % (Auto) Lymph % (Auto) [place] % (Auto) Eos % (Auto) Baso % (Auto) Immature Gran # (Auto) Neut # (Auto) Lymph # (Auto) [place] # (Auto) Eos # (Auto) Baso # (Auto) Sodium Potassium Chloride Carbon Dioxide Anion Gap BUN Creatinine Est Cr Clr Drug Dosing Est GFR ( Amer) Est GFR (Non-Af Amer) BUN/Creatinine Ratio Glucose POC Glucose 182 H 221 H Fasting Glucose Estimat Average Glucose 197 Hemoglobin A1c 8.5 H Calcium Magnesium Total Creatine Kinase 05/27/19 05/27/19 05/27/19 12:30 12:48 13:31 WBC RBC Hgb Hct MCV MCH MCHC RDW Std Deviation RDW Coeff of Мария Plt Count MPV Immature Gran % (Auto) Neut % (Auto) Lymph % (Auto) [place] % (Auto) Eos % (Auto) Baso % (Auto) Immature Gran # (Auto) Neut # (Auto) Lymph # (Auto) [place] # (Auto) Eos # (Auto) Baso # (Auto) Sodium 131 L Potassium Chloride 99 Carbon Dioxide 27 Anion Gap 5.0 BUN 42 H Creatinine 1.89 H Est Cr Clr Drug Dosing 73.9 Est GFR ( Amer) 45.3 Est GFR (Non-Af Amer) 39.1 BUN/Creatinine Ratio 22.3 H Glucose 178 H POC Glucose 193 H 171 H Fasting Glucose Estimat Average Glucose Hemoglobin A1c Calcium 8.6 Magnesium Total Creatine Kinase 05/27/19 05/27/19 05/27/19 13:51 14:49 15:34 WBC RBC Hgb Hct MCV MCH MCHC RDW Std Deviation RDW Coeff of Мария Plt Count MPV Immature Gran % (Auto) Neut % (Auto) Lymph % (Auto) [place] % (Auto) Eos % (Auto) Baso % (Auto) Immature Gran # (Auto) Neut # (Auto) Lymph # (Auto) [place] # (Auto) Eos # (Auto) Baso # (Auto) Sodium Potassium 3.7 Chloride Carbon Dioxide Anion Gap BUN Creatinine Est Cr Clr Drug Dosing Est GFR ( Amer) Est GFR (Non-Af Amer) BUN/Creatinine Ratio Glucose POC Glucose 154 H 148 H Fasting Glucose Estimat Average Glucose Hemoglobin A1c Calcium Magnesium Total Creatine Kinase 05/27/19 05/27/19 05/27/19 16:02 17:02 19:54 WBC RBC Hgb Hct MCV MCH MCHC RDW Std Deviation RDW Coeff of Мария Plt Count MPV Immature Gran % (Auto) Neut % (Auto) Lymph % (Auto) [place] % (Auto) Eos % (Auto) Baso % (Auto) Immature Gran # (Auto) Neut # (Auto) Lymph # (Auto) [place] # (Auto) Eos # (Auto) Baso # (Auto) Sodium Potassium Chloride Carbon Dioxide Anion Gap BUN Creatinine Est Cr Clr Drug Dosing Est GFR ( Amer) Est GFR (Non-Af Amer) BUN/Creatinine Ratio Glucose POC Glucose 134 H 115 H 137 H Fasting Glucose Estimat Average Glucose Hemoglobin A1c Calcium Magnesium Total Creatine Kinase 05/27/19 05/28/19 05/28/19 23:58 04:06 04:46 WBC RBC Hgb Hct MCV MCH MCHC RDW Std Deviation RDW Coeff of Мария Plt Count MPV Immature Gran % (Auto) Neut % (Auto) Lymph % (Auto) [place] % (Auto) Eos % (Auto) Baso % (Auto) Immature Gran # (Auto) Neut # (Auto) Lymph # (Auto) [place] # (Auto) Eos # (Auto) Baso # (Auto) Sodium 134 L Potassium 4.0 Chloride 102 Carbon Dioxide 28 Anion Gap 4.0 BUN 35 H Creatinine 1.64 H Est Cr Clr Drug Dosing 85.1 Est GFR ( Amer) 53.8 Est GFR (Non-Af Amer) 46.4 BUN/Creatinine Ratio 21.5 H Glucose 132 H POC Glucose 175 H 118 H Fasting Glucose Estimat Average Glucose Hemoglobin A1c Calcium 8.6 Magnesium 2.5 H Total Creatine Kinase 404 H 05/28/19 05/28/19 05/28/19 04:47 07:31 11:21 WBC 8.83 RBC 4.47 L Hgb 13.3 L Hct 39.7 L MCV 88.8 MCH 29.8 MCHC 33.5 RDW Std Deviation 50.0 H RDW Coeff of Мария 15.5 H Plt Count 113 L MPV 10.8 H Immature Gran % (Auto) 0.6 Neut % (Auto) 81.8 Lymph % (Auto) 7.0 [place] % (Auto) 10.0 Eos % (Auto) 0.3 Baso % (Auto) 0.3 Immature Gran # (Auto) 0.05 H Neut # (Auto) 7.22 H Lymph # (Auto) 0.62 L [place] # (Auto) 0.88 H Eos # (Auto) 0.03 Baso # (Auto) 0.03 Sodium Potassium Chloride Carbon Dioxide Anion Gap BUN Creatinine Est Cr Clr Drug Dosing Est GFR ( Amer) Est GFR (Non-Af Amer) BUN/Creatinine Ratio Glucose POC Glucose 132 H 152 H Fasting Glucose Estimat Average Glucose Hemoglobin A1c Calcium Magnesium Total Creatine Kinase 05/28/19 12:37 WBC RBC Hgb Hct MCV MCH MCHC RDW Std Deviation RDW Coeff of Мария Plt Count MPV Immature Gran % (Auto) Neut % (Auto) Lymph % (Auto) [place] % (Auto) Eos % (Auto) Baso % (Auto) Immature Gran # (Auto) Neut # (Auto) Lymph # (Auto) [place] # (Auto) Eos # (Auto) Baso # (Auto) Sodium Pending Potassium Pending Chloride Pending Carbon Dioxide Pending Anion Gap Pending BUN Pending Creatinine Pending Est Cr Clr Drug Dosing Pending Est GFR ( Amer) Pending Est GFR (Non-Af Amer) Pending BUN/Creatinine Ratio Glucose POC Glucose Fasting Glucose Pending Estimat Average Glucose Hemoglobin A1c Calcium Pending Magnesium Total Creatine Kinase Pending Medications Administered Current Inpatient Medications Acetaminophen (Tylenol) 650 mg PO Q6H PRN PRN Reason: Fever Stop: 06/25/19 04:28 Last Admin: 05/26/19 20:16 Dose: 650 mg Documented by: Amiodarone HCl (Cordarone) 100 mg PO QAM [facility] Stop: 06/25/19 08:59 Last Admin: 05/28/19 07:40 Dose: 100 mg Documented by: Aspirin (Ecotrin Ectab) 81 mg PO QAM [facility] Stop: 06/25/19 08:59 Last Admin: 05/28/19 07:40 Dose: 81 mg Documented by: Fluticasone Propionate (Flonase) 2 sprays NA BID [facility] Stop: 06/25/19 08:59 Last Admin: 05/28/19 07:41 Dose: 2 sprays Documented by: Fluticasone/Vilanterol (Breo Ellipta 200/25 Mcg Inh) 1 puffs INH DAILY [facility] Stop: 06/25/19 08:59 Last Admin: 05/28/19 07:41 Dose: 1 puffs Documented by: Gabapentin (Neurontin) 200 mg PO TID [facility] Stop: 06/25/19 08:59 Last Admin: 05/28/19 12:26 Dose: 200 mg Documented by: Heparin Sodium (Porcine) (Heparin Sodium (Porcine)) 5,000 units SQ Q8 [facility] Stop: 06/25/19 05:59 Last Admin: 05/28/19 12:26 Dose: 5,000 units Documented by: Hydromorphone HCl (Dilaudid) 0.5 mg IV Q3H PRN PRN Reason: Pain Stop: 06/09/19 22:31 Last Admin: 05/28/19 12:21 Dose: 0.5 mg Documented by: Promethazine HCl 12.5 mg/ (Sodium Chloride) 50.5 mls @ 202 mls/hr IV Q6H PRN PRN Reason: Nausea And Vomiting Stop: 06/25/19 03:21 Ceftriaxone Sodium 2,000 mg/ (Dextrose) 70 mls @ 100 mls/hr IV DAILY [facility]; Protocol Stop: 06/11/19 08:59 Last Infusion: 05/28/19 10:17 Dose: Infused Documented by: Potassium Chloride/Sodium Chloride (Normal Saline W/20 Meq Kcl) 20 meq in 1,000 mls @ 40 mls/hr IV .Q24H [facility] Stop: 05/29/19 06:59 Last Admin: 05/28/19 07:40 Dose: 40 mls/hr Documented by: Insulin Aspart (Novolog Flexpen) 0 units SC ACHS [facility] Stop: 06/26/19 20:59 Last Admin: 05/28/19 12:25 Dose: 32 units Documented by: Insulin Aspart (Novolog Flexpen) 0 units SC 0000,[id number] [facility] Stop: 06/27/19 00:00 Last Admin: 05/28/19 04:21 Dose: Not Given Documented by: Insulin Glargine (Lantus) 0 units SC HS [facility]; Protocol Stop: 06/26/19 20:59 Last Admin: 05/27/19 20:36 Dose: Not Given Documented by: Insulin Glargine (Lantus) 100 units SC BID [facility] Stop: 06/27/19 08:59 Last Admin: 05/28/19 07:57 Dose: 100 units Documented by: Levothyroxine Sodium (Synthroid) 100 mcg PO DAILYBB [facility] Stop: 06/25/19 06:29 Last Admin: 05/28/19 05:29 Dose: 100 mcg Documented by: Lidocaine (Lidoderm 5%) 1 patch TD QAM [facility] Stop: 06/26/19 00:59 Last Admin: 05/28/19 07:41 Dose: 1 patch Documented by: Metoprolol Succinate (Toprol Xl) 25 mg PO QPM [facility] Stop: 06/25/19 20:59 Last Admin: 05/27/19 19:45 Dose: 25 mg Documented by: Miscellaneous (Remove Lidoderm Patch) 1 ea N/A DAILY@2100 [facility] Stop: 06/26/19 12:59 Last Admin: 05/27/19 12:04 Dose: Not Given Documented by: Miscellaneous Information (Consult Glycemic Management Pharmacy) 1 ea N/A UD PRN PRN Reason: Consult Stop: 06/25/19 03:43 Pantoprazole Sodium (Protonix) 40 mg PO QPM [facility] Stop: 06/25/19 20:59 Last Admin: 05/27/19 19:45 Dose: 40 mg Documented by: Tramadol HCl (Ultram) 50 mg PO Q6H PRN PRN Reason: pain Stop: 06/25/19 03:21 Last Admin: 05/28/19 07:56 Dose: 50 mg Documented by:
[2019-05-28 13:27] LABS: Calcium 8.9 mg/dl (8.5-10.1); Creatinine Clr Calc Pharmacy 85.1 ml/min; Est GFR (African American) 53.8; Est GFR (Non-African American) 46.4
[2019-05-28] MEDS ORDERED: GABAPENTIN 100 MG CAP PO ONE (13:38)
[2019-05-28] MEDS: GABAPENTIN 300 MG CAP PO SCH ×2 (14:09→19:37)
[2019-05-28] MEDS: VALACYCLOVIR HCL 500 MG TABLET PO SCH ×2 (14:15→19:37)
[2019-05-28 14:58] LABS: Potassium 3.9 mmol/L (3.5-5.1)
[2019-05-28] MEDS ORDERED: HYDROmorphone INJ 1 MG/ML SYRINGE ONE (16:13)
[2019-05-28] MEDS ORDERED: HYDROmorphone INJ 1 MG/ML SYRINGE IV STA (18:06)
[2019-05-28] MEDS: PANTOprazole 40 MG TAB PO SCH (19:37)
[2019-05-28] MEDS: METOPROLOL SUCC 25MG EXT REL TAB PO SCH (19:37)
[2019-05-28] MEDS ORDERED: INSULIN GLARGINE 100 UNIT/ML VIAL SC ONE (22:15)
[2019-05-28] MEDS: SACCHAROMYCES BOULARDII 250 MG CAP PO SCH (22:20)
--- NOTE | 2019-05-29 00:24 | CT Scan Report ---
CT SCAN OF THE RIGHT FEMUR WITHOUT IV CONTRAST CLINICAL HISTORY: Right lower extremity edema. COMPARISON STUDY: No priors. TECHNIQUE: CT scan of the right femur is performed from the bony pelvis to the knee. Images are revie wed in the axial, sagittal, and coronal planes. IV contrast was not administered for this examination . A dose lowering technique was utilized adhering to the principles of ALARA. Note that interpretatio n is suboptimal without plain film correlate. CT DOSE: 1177.99 mGy.cm FINDINGS: The skeletal structures are well mineralized. There is no evidence of right femoral fractur e. No lytic or blastic lesion is seen. A bone island is incidentally noted in the patella. No bony er osion or periostitis is identified. The visualized right hemipelvis appears intact. Mild degenerative joint space narrowing is present in the right hip, with mild sclerosis of the right acetabulum. The knee joint is grossly maintained. There is no evidence of hip joint effusion. The musculature of the right thigh is mildly atrophic. There is subcutaneous soft tissue edema and fluid seen within the dis bryan thigh. No organized fluid collection is seen suggest abscess. A metallic BB is present within the vastus medialis muscle. Atherosclerotic calcification is noted in the femoral artery. The bladder, p rostate, and seminal vesicles are normal as visualized. There is no right pelvic sidewall or inguinal adenopathy. No subcutaneous emphysema is identified. IMPRESSION: 1. No osseous abnormality is identified in the right femur. 2. There is soft tissue edema and subcutaneous fluid present in the distal thigh. This could represen t edema or possibly cellulitis and clinical correlation will be required. 3. No organized fluid collection or hematoma is identified. 4. A metallic BB is noted within the distal vastus medialis muscle. ACT 112: Negative or not required by law. Electronically signed by: Lukas Trivedi M.D. 05/29/2019 12:23 AM
[2019-05-29] MEDS ORDERED: DEXTROSE 50% 50 ML SYRINGE IV PRN (00:30)
[2019-05-29] MEDS ORDERED: GLUCAGON FOR INJ 1 MG VIAL IM PRN (00:30)
[2019-05-29] MEDS ORDERED: GLUCOSE 10 TABS/TUBE PO PRN (00:30)
[2019-05-29] MEDS ORDERED: GLUCOSE 40% GEL 15 GM TUBE PO PRN (00:30)
[2019-05-29] MEDS ORDERED: CARBOHYDRATES FOR HYPOGLYCEMIA PO PRN (00:30)
[2019-05-29] MEDS ORDERED: DOXYCYCLINE HYCLATE 100 MG in DEXTROSE 5% 100 ML IV STA (00:34)
--- NOTE | 2019-05-29 00:35 | Communication Note ---
Date of Service: May 29, 2019 Increased right thigh swelling/discomfort noted as per RN. CT right femur : 1. No osseous abnormality is identified in the right femur. 2. There is soft tissue edema and subcutaneous fluid present in the distal thigh. This could represent edema or possibly cellulitis and clinical correlation will be required. 3. No organized fluid collection or hematoma is identified. 4. A metallic BB is noted within the distal vastus medialis muscle. AP Worsening right thigh cellulitis Ongoing ceftriaxone Rx for streptococcal bacteremia Add Doxycycline to regimen for MRSA coverage. Local measures for right thigh cellulitis. Will relay to AM provider.
[2019-05-29] MEDS: HYDROmorphone INJ 0.5 MG/0.5 ML SYR IV PRN ×4 (04:10→17:36)
[2019-05-29] MEDS: HEPARIN SOD 5,000 UNIT/0.5 ML VIAL SQ SCH ×3 (04:56→21:43)
[2019-05-29] MEDS: ACETAMINOPHEN 325 MG TAB PO PRN (04:56)
[2019-05-29] MEDS: LEVOTHYROXINE SODIUM 100 MCG TABLET PO SCH (04:56)
[2019-05-29 07:15] LABS: Hematocrit (blood only) 39.8 % (42-52); Hemoglobin 13.6 g/dL (14.0-18.0); Mean Corpuscular Hemoglobin 30.1 pg (25-34); Mean Corpuscular Hgb Conc 34.2 g/dL (32-36); Mean Corpuscular Volume 88.1 fL (80-100); Platelet Count 120 K/uL (130-400); RDW Coefficient of Variation 15.7 % (11.5-14.5); RDW Standard Deviation 50.4 fL (36.4-46.3); Red Blood Count 4.52 M/uL (4.7-6.1); White Blood Count 15.51 K/uL (4.8-10.8)
[2019-05-29 07:46] LABS: BUN Creatinine Ratio 17.5 (10-20); Creatinine Clr Calc Pharmacy 81.9 ml/min; Est GFR (African American) 50.8; Est GFR (Non-African American) 43.8; Magnesium 2.2 mg/dl (1.8-2.4); Potassium 4.2 mmol/L (3.5-5.1)
[2019-05-29] MEDS ORDERED: CEFEPIME 2,000 MG in SYRINGE 7.5 ML IV STA (07:52)
[2019-05-29] MEDS: TRAMADOL HCL 50 MG TABLET PO PRN ×2 (07:57→17:36)
[2019-05-29] MEDS: AMIODARONE 200 MG TAB PO SCH (07:58)
[2019-05-29] MEDS: GABAPENTIN 300 MG CAP PO SCH ×3 (07:59→21:41)
[2019-05-29] MEDS: VALACYCLOVIR HCL 500 MG TABLET PO SCH ×2 (07:59→13:08)
[2019-05-29] MEDS: ASPIRIN 81 MG ECTAB PO SCH (07:59)
[2019-05-29] MEDS: SACCHAROMYCES BOULARDII 250 MG CAP PO SCH (07:59)
[2019-05-29] MEDS: FLUTICASONE PROPIONATE NA SPR 16 GM BTL SCH ×2 (07:59→21:39)
[2019-05-29] MEDS: FLUTICASONE/VILANTEROL 200/25MCG 14 PUFFS/INHALER INH SCH (08:00)
[2019-05-29] MEDS: INSULIN ASPART 100 UNITS/ML 3 ML PEN SC SCH ×4 (08:02→21:46)
[2019-05-29] MEDS: INSULIN GLARGINE 100 UNIT/ML VIAL SC SCH ×2 (08:05→21:40)
[2019-05-29] MEDS: LIDOCAINE 5% 1 PATCH TD SCH (09:18)
--- NOTE | 2019-05-29 11:47 | Cardiology Progress Note ---
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 I have put a consult in for infectious disease to evaluate. He ultimately may benefit from a commissions specialist. I also restarted his home Bumex dose. Subjective The patient's leg pain is better controlled today. The patient has an expanding area of erythema covering most of his right leg. This is of concern considering the patient had bacteremia and a device implant. Review of Systems Review of Systems: All systems reviewed & are unremarkable except as noted in HPI & below Nothing additional to add. Physical Exam Physical Exam: General: no acute distress and stated age Head: normocephalic, no masses, lesions, tenderness or abnormalities Eyes: conjunctiva are pink and non-injected, sclera clear Neck: supple, no adenopathy, no bruits, normal jugular venous pulse, no hepatojugular reflux Chest: normal shape and normal respiratory effort Lungs: clear to auscultation and percussion Cardiac Exam: - regular rate & rhythm, no murmurs gallops or rubs - normal S1, normal S2 Pulses: 2(+) throughout Abdomen: abdomen soft, non-tender, no abnormal masses and no hepatosplenomegaly Musculoskeletal: no gait disturbance, no joint inflammation, no deforming arthritis Extremities: Large area of erythema of the right thigh extending into the calf and up into the groin which has expanded since admission. Neuro: grossly normal exam Results & Data Vital Signs (Past 12 Hours) Vital Signs Temp Pulse Pulse Resp BP Pulse Ox 05/29/19 08:00 76 05/29/19 07:02 36.7 C 77 21 155/76 H 95 05/29/19 04:32 38.1 C H 81 22 150/73 H 92 Laboratory Results Laboratory Results - last 24 hr 05/28/19 05/28/19 05/28/19 12:37 14:10 16:31 WBC RBC Hgb Hct MCV MCH MCHC RDW Std Deviation RDW Coeff of Мария Plt Count MPV Sodium 134 L Potassium 3.9 Chloride 100 Carbon Dioxide 29 Anion Gap 5.0 BUN 33 H Creatinine 1.64 H Est Cr Clr Drug Dosing 85.1 Est GFR ( Amer) 53.8 Est GFR (Non-Af Amer) 46.4 BUN/Creatinine Ratio Glucose POC Glucose 96 Fasting Glucose 172 H Calcium 8.9 Magnesium Total Creatine Kinase 303 05/28/19 05/29/19 05/29/19 21:55 00:12 00:30 WBC RBC Hgb Hct MCV MCH MCHC RDW Std Deviation RDW Coeff of Мария Plt Count MPV Sodium Potassium Chloride Carbon Dioxide Anion Gap BUN Creatinine Est Cr Clr Drug Dosing Est GFR ( Amer) Est GFR (Non-Af Amer) BUN/Creatinine Ratio Glucose POC Glucose 85 65 L* 71 Fasting Glucose Calcium Magnesium Total Creatine Kinase 05/29/19 05/29/19 05/29/19 06:29 06:29 07:11 WBC 15.51 H RBC 4.52 L Hgb 13.6 L Hct 39.8 L MCV 88.1 MCH 30.1 MCHC 34.2 RDW Std Deviation 50.4 H RDW Coeff of Мария 15.7 H Plt Count 120 L MPV 11.0 H Sodium 132 L Potassium 4.2 Chloride 99 Carbon Dioxide 24 Anion Gap 9.0 BUN 30 H Creatinine 1.72 H Est Cr Clr Drug Dosing 81.9 Est GFR ( Amer) 50.8 Est GFR (Non-Af Amer) 43.8 BUN/Creatinine Ratio 17.5 Glucose 97 POC Glucose 102 H Fasting Glucose Calcium 9.0 Magnesium 2.2 Total Creatine Kinase 885 H 05/29/19 11:36 WBC RBC Hgb Hct MCV MCH MCHC RDW Std Deviation RDW Coeff of Мария Plt Count MPV Sodium Potassium Chloride Carbon Dioxide Anion Gap BUN Creatinine Est Cr Clr Drug Dosing Est GFR ( Amer) Est GFR (Non-Af Amer) BUN/Creatinine Ratio Glucose POC Glucose 167 H Fasting Glucose Calcium Magnesium Total Creatine Kinase Medications Administered Current Inpatient Medications Acetaminophen (Tylenol) 650 mg PO Q6H PRN PRN Reason: Fever Stop: 06/25/19 04:28 Last Admin: 05/29/19 04:56 Dose: 650 mg Documented by: [facility]) [facility] [place]: 06/25/19 08:59 Last Admin: 05/29/19 07:58 Dose: 100 mg Documented by: Aspirin (Ecotrin Ectab) 81 mg PO QAM [facility] Stop: 06/25/19 08:59 Last Admin: 05/29/19 07:59 Dose: 81 mg Documented by: Bumetanide (Bumex) 1 mg PO BID17 [facility] Stop: 06/28/19 16:59 Dextrose (Dextrose 50%) 25 - 50 ml IV UD PRN; Protocol PRN Reason: Hypoglycemia Protocol Stop: 06/28/19 00:29 Doxycycline Hyclate (Vibramycin) 100 mg PO BID [facility] Stop: 06/08/19 20:59 Fluticasone Propionate (Flonase) 2 sprays NA BID [facility] Stop: 06/25/19 08:59 Last Admin: 05/29/19 07:59 Dose: 2 sprays Documented by: Fluticasone/Vilanterol (Breo Ellipta 200/25 Mcg Inh) 1 puffs INH DAILY [facility] Stop: 06/25/19 08:59 Last Admin: 05/29/19 08:00 Dose: 1 puffs Documented by: Gabapentin (Neurontin) 300 mg PO TID [facility] Stop: 06/27/19 13:59 Last Admin: 05/29/19 07:59 Dose: 300 mg Documented by: Glucagon (Glucagen) 1 mg IM UD PRN; Protocol PRN Reason: Hypoglycemia Protocol Stop: 06/28/19 00:29 Glucose (Glucose 40%) 15 - 30 gm PO UD PRN; Protocol PRN Reason: Hypoglycemia Protocol Stop: 06/28/19 00:29 Glucose (Dex4 Glucose) 4 - 8 tabs PO UD PRN; Protocol PRN Reason: Hypoglycemia Protocol Stop: 06/28/19 00:29 Heparin Sodium (Porcine) (Heparin Sodium (Porcine)) 5,000 units SQ Q8 [facility] Stop: 06/25/19 05:59 Last Admin: 05/29/19 04:56 Dose: 5,000 units Documented by: Hydromorphone HCl (Dilaudid) 0.5 mg IV Q3H PRN PRN Reason: Pain Stop: 06/09/19 22:31 Last Admin: 05/29/19 07:58 Dose: 0.5 mg Documented by: Promethazine HCl 12.5 mg/ (Sodium Chloride) 50.5 mls @ 202 mls/hr IV Q6H PRN PRN Reason: Nausea And Vomiting Stop: 06/25/19 03:21 Cefepime HCl 2,000 mg/ Syringe 20 mls @ 5.5 mls/min IV Q12H [facility]; Protocol Stop: 06/08/19 19:59 Insulin Aspart (Novolog Flexpen) 0 units SC ACHS [facility] Stop: 06/26/19 20:59 Last Admin: 05/29/19 08:02 Dose: 22 units Documented by: Insulin Glargine (Lantus) 75 units SC BID [facility]; Protocol Stop: 06/28/19 08:59 Last Admin: 05/29/19 08:05 Dose: 75 units Documented by: Levothyroxine Sodium (Synthroid) 100 mcg PO DAILYBB [facility] Stop: 06/25/19 06:29 Last Admin: 05/29/19 04:56 Dose: 100 mcg Documented by: Lidocaine (Lidoderm 5%) 1 patch TD QAM [facility] Stop: 06/26/19 00:59 Last Admin: 05/29/19 09:18 Dose: Not Given Documented by: Metoprolol Succinate (Toprol Xl) 25 mg PO QPM [facility] Stop: 06/25/19 20:59 Last Admin: 05/28/19 19:37 Dose: 25 mg Documented by: Miscellaneous (Remove Lidoderm Patch) 1 ea N/A DAILY@2100 [facility] Stop: 06/26/19 12:59 Last Admin: 05/28/19 19:38 Dose: 1 ea Documented by: Miscellaneous (Carbohydrates For Hypoglycemia) 15 - 30 gm PO UD PRN PRN Reason: Hypoglycemia Treatment Stop: 06/28/19 00:29 Last Admin: 05/29/19 00:15 Dose: 15 gm Documented by: Miscellaneous Information (Consult Glycemic Management Pharmacy) 1 ea N/A UD PRN PRN Reason: Consult Stop: 06/25/19 03:43 Pantoprazole Sodium (Protonix) 40 mg PO QPM [facility] Stop: 06/25/19 20:59 Last Admin: 05/28/19 19:37 Dose: 40 mg Documented by: Saccharomyces Boulardii (Florastor) 250 mg PO DAILY [facility] Stop: 06/27/19 19:44 Last Admin: 05/29/19 07:59 Dose: 250 mg Documented by: Tramadol HCl (Ultram) 50 mg PO Q6H PRN PRN Reason: pain Stop: 02/29/20 03:21 Last Admin: 05/29/19 07:57 Dose: 50 mg Documented by: Valacyclovir HCl (Valtrex) 1,000 mg PO TID [facility] Stop: 05/30/19 13:59 Last Admin: 05/29/19 07:59 Dose: 1,000 mg Documented by:
--- NOTE | 2019-05-29 14:15 | Pharmacy Report ---
Pharmacy Glycemic Short Note 2 - Date of Service May 29, 2019 - Glycemic Short BSG Results (Last 24 hours): 05/28/19 05/28/19 05/29/19 16:31 21:55 00:12 Glucose POC Glucose 96 85 65 L* 05/29/19 05/29/19 05/29/19 00:30 06:29 07:11 Glucose 97 POC Glucose 71 102 H 05/29/19 11:36 Glucose POC Glucose 167 H OUTPATIENT ANTIDIABETIC REGIMEN: * Patient uses Tandem insulin pump (Novolog U100 insulin used in pump) * Total daily doses reviewed and ranged 160-250units/day (most of which are basal doses): Basal rate 7units/hr (168 units/day) * It appears that his pump delivers mostly basal insulin doses as he admits to rarely bolusing himself and when he does bolus he stated he can only give up to 25units per bolus dose. He does have a CGM that will suspend his basal rate when trending low. * A1c = 9% 11/03/18 ASSESSMENT: 05/29 * Patient is currently receiving an average of 315 units of insulin per day * 195 units of basal insulin * 120 units of prandial/correctional insulin * BSGs ranging 65-172mg/dl over the past 24hrs * Anticipating insulin regimen will need decreased for the next 24hrs d/t : * AM Fasting BSG = 97mg/dl, one episode of hypoglycemia last night, therefore Basal insulin needs decreased * BSGs trending downwards throughout the day (insulin stacking) therefore Loosen CF/CR * Sent note to CDE's to see patient tomorrow 05/27 * Insulin drip continues at this time, insulin infusion running at rates of 7-13 units/hr * Patient has received > 400units from insulin drip and SQ insulin doses * Will attempt to convert the patient to a SQ regimen this afternoon * Will trial Lantus dose that he reports using prior to beginning the insulin pump 3 months ago (ie 100 units Lantus BID). I suspect he may ultimately require more than this given insulin infusion rates - however this is a starting point and we can give more if needed * Novolog CF and CR doses will be based upon an anticipated total daily insulin dose of ~300+ units/day * Will check A1c given uncertain level of control over last several months 05/26 * IV insulin infusion started due to sepsis/bacteremia dx and BSGs trending upwards in the mid-upper 300's * No AG acidosis noted on labs, however lactate is trending upwards * Plan is to continue IV insulin drip to gain quick control of hyperglycemic state. Will continue to administer basal insulin w/ the IV insulin drip to allow for easier transition back to SQ given highly insulin resistant state. * In the past, he had U500 in his insulin pump and had used upwards of 300units/day. Prior to using this insulin pump, he was using Lantus 100 units BID and Novolog 60 units per meal. I anticipate his total daily insulin requirement to be 300+ units/day. PLAN FOR INPATIENT GLYCEMIC CONTROL: * Basal insulin -decrease * Lantus 75 units SQ BID * Bolus insulin * BSGs ACHS * Goal range: 110-140mg/dL * loosen: Correction factor: 10 mg/dL/unit * loosen: Nutritional / Prandial insulin per carb ratio of 1 unit per 3 grams CHO consumed PLAN FOR DISCHARGE: * to be determined. it seems that patient has some difficulties with using his insulin pump and may not be bolusing himself appropriately and his pump reservoir may not hold a full 24 hr supply of insulin to fit his needs.
[2019-05-29] MEDS: BUMETANIDE 1 MG TAB PO SCH (16:54)
[2019-05-29] MEDS ORDERED: AMIODARONE IV BOLUS / DRIP IV STA (19:15)
[2019-05-29] MEDS ORDERED: AMIODARONE / D5W 150 MG/100 ML BAG IV STA (19:15)
[2019-05-29] MEDS ORDERED: AMIODARONE / D5W 360 MG/200 ML BAG IV SCH (19:15)
[2019-05-29] MEDS ORDERED: VANCOMYCIN CONSULT ACTIVE PRN (19:38)
--- NOTE | 2019-05-29 19:42 | Communication Note ---
Date of Service: May 29, 2019 Contacted by nursing staff regarding change in heart rhythm. He went from sinus rhythm to a wide complex tachycardia with a rate of 145bpm consistently. He reports feeling unwell, and feels fluttering in his chest. He denies chest pain or shortness of breath. BP is 151/70 and he is afebrile. Contacted cardiology with guidance to start amio drip with bolus. On exam he appears ill. He is not working to breathe and lungs are clear to auscultation throughout. Cardiac auscultation reveals tachycardia with a regular rhythm. Abdomen is obese, soft and nondistended. His left leg is erythematous and warm to touch. There is no open wound seen, but there is some appearance of blisters forming. This doesn't appear consistent with shingles at this point and his Valtrex was stopped. He had warm, wet rags on his leg which I removed and guided nursing to not use these so as not to trap the heat near the skin. The patient has a significant a mount of pain in his leg from this rash. Dilaudid is not working for him. Added scheduled Tylenol and PRN oxycodone as the dilaudid is not working for very long. Stopping doxy and broadening his antibiotic coverage to include vancomycin. Daptomycin contraindicated in setting of elevated CK. He does not appear septic at this time, however, will draw a lactate and procalcitonin to help guide the need for IVF bolus at this time. Redrawing blood cultures with fevers throughout the last 24 hours, worsening leukocytosis and decline in clinical status this evening. Also checking lytes to ensure these are in good shape so as not to add to the tachycardia and will replete as needed. DO Mark
[2019-05-29] MEDS: OXYCODONE HCL IR 5 MG TAB (IMMEDIATE RELEASE) PO PRN (19:45)
[2019-05-29] MEDS: CEFEPIME 2,000 MG in SYRINGE 7.5 ML IV SCH (19:46)
[2019-05-29] MEDS ORDERED: VANCOMYCIN HCL 2,750 MG in SODIUM CHLORIDE 0.9% 500 ML IV ONE (20:00)
[2019-05-29 20:54] LABS: BUN Creatinine Ratio 19.4 (10-20); Calcium 8.6 mg/dl (8.5-10.1); Creatinine Clr Calc Pharmacy 90.3 ml/min; Est GFR (African American) 57.1; Est GFR (Non-African American) 49.3; Magnesium 2.1 mg/dl (1.8-2.4); Potassium 3.6 mmol/L (3.5-5.1)
[2019-05-29 20:55] LABS: Basophils # (auto) 0.04 K/uL (0-0.2); Basophils % (auto) 0.2 %; Eosinophils # (auto) 0.02 K/uL (0-0.5); Eosinophils % (auto) 0.1 %; Hematocrit (blood only) 37.2 % (42-52); Hemoglobin 12.9 g/dL (14.0-18.0); Immature Granulocytes # (auto) 0.25 K/uL (0.00-0.02); Immature Granulocytes % (auto) 1.4 %; Lymphocytes # (auto) 0.86 K/uL (1.2-3.4); Lymphocytes % (auto) 4.8 %; Mean Corpuscular Hemoglobin 29.9 pg (25-34); Mean Corpuscular Hgb Conc 34.7 g/dL (32-36); Mean Corpuscular Volume 86.3 fL (80-100); Mean Platelet Volume 10.2 fL (7.4-10.4); Monocytes # (auto) 1.82 K/uL (0.11-0.59); Monocytes % (auto) 10.1 %; Neutrophils # (auto) 14.97 K/uL (1.4-6.5); Neutrophils % (auto) 83.4 %; Platelet Count 134 K/uL (130-400); RDW Coefficient of Variation 15.5 % (11.5-14.5); RDW Standard Deviation 49.6 fL (36.4-46.3); Red Blood Count 4.31 M/uL (4.7-6.1); White Blood Count 17.96 K/uL (4.8-10.8)
[2019-05-29] MEDS ORDERED: DOXYCYCLINE HYCLATE 100 MG CAP PO SCH (21:00)
[2019-05-29] MEDS: PANTOprazole 40 MG TAB PO SCH (21:42)
[2019-05-29] MEDS: METOPROLOL SUCC 25MG EXT REL TAB PO SCH (21:43)
[2019-05-29] MEDS: ACETAMINOPHEN 500 MG TAB PO SCH (21:44)
--- NOTE | 2019-05-29 21:51 | Pharmacy Report ---
Pharmacy Abx Initial Consult - Date of Service May 29, 2019 - Pharmacy Dosing Scope Date of Consult: 05/29/19 Consultation requested by: Dr. Flores Pharmacy is consulted to initiate Vancomycin IV dosing therapy, order appropriate labs and adjust drug dose/frequency. - Subjective The patient is a 53 year old M admitted on 05/26/19 01:25. - Objective Height: 6 ft Weight: 181.8 kg Vital Signs (Past 12hrs): Vital Signs Temp Pulse Pulse Resp BP Pulse Ox 05/29/19 18:52 37.1 C 86 20 151/70 H 95 05/29/19 17:03 135/72 05/29/19 15:33 37.4 C 84 20 178/80 H 95 05/29/19 11:45 38.1 C H 84 18 166/95 H 94 Lab Results (24hrs): Laboratory Tests (24 Hours) 05/29/19 05/29/19 05/29/19 20:26 20:26 20:26 WBC 17.96 H Neut # (Auto) 14.97 H Creatinine 1.56 H Est Cr Clr Drug Dosing 90.3 Total Creatine Kinase Procalcitonin 3.42 H 05/29/19 05/29/19 06:29 06:29 WBC 15.51 H Neut # (Auto) Creatinine 1.72 H Est Cr Clr Drug Dosing 81.9 Total Creatine Kinase 885 H Procalcitonin Micro Results: 05/29/19 20:26 Aerobic Blood Culture - Pending Blood Anaerobic Blood Culture - Pending 05/29/19 20:26 Aerobic Blood Culture - Pending Blood Anaerobic Blood Culture - Pending 05/27/19 23:29 Anaerobic Blood Culture - Final Blood 05/27/19 23:28 Anaerobic Blood Culture - Final Blood - Assessment & Plan Assessment 53 year old M admitted for Sepsis. He was being treated with Daptomycin + Cefepime for cellulitis. Daptomycin stopped most likely d/t elevated CPK. Vancomycin ordered to start today. Patient with BMI = 54 kg/m2 with risk for Vanco accumulation. Plan Vancomycin IV * Estimated PK Parameters: Vd 0.7 L/kg, Josue 0.067 hr-1, t1/2 9.9 hr * Loading dose: Vancomycin 2750 mg (15 mg/kg) IV x 1 today. * Maintenance dose: Vancomycin 1750 mg IV (9.6 mg/kg) every 12 hours * Goal trough level for Cellulitis: ~15 mcg/mL * Trough ordered for 05/31 @0730 AM * A less than traditional dose has been selected due to likelihood of drug accumulation in obese patient. Pharmacy will continue to follow and will adjust dose/frequency as necessary. Thank you.
--- NOTE | 2019-05-29 22:02 | Hospitalist Progress Note ---
Date of Service May 29, 2019 Assessment & Plan (1) Severe sepsis: SIRS plus ARF on CRI plus lactic acid elevation Group G strep bacteremia (GGS pansensitive) No obvious source - however patient had recent procedure regarding his ICD ([place] 2018 w/Dr. Dumont), and also has a small wound on his left heel Pt started on daptomycin and cefepime in the ED, after blood cultures positive, discussed with pharmacy appropriate dosage for both medications Rule out endocarditis, hx ICD ID consulte, echo ordered Echo - negative for vegetations but poorly visualized valvular structures without significant stenosis or regurgitation by Doppler. WBC 33K >>8K (05/28), current WBC elevated again at 15K (05/29), blood cltx - pending Pt spiked fevers again. ID evaluated the patient (05/27), given that Echo negative, and blood culture positive for Group G Strep, cefepime was stopped, likely patient will be able to be treated w/ PO antibiotics if repeat blood cltx negative Now concern for rhabdo d/t daptomycin and so daptomycin discontinued and pt started on ceftriaxone by legal entity controller, given that sensitivities from blood cltx - GGS - pansensitive Pain increased again overnight and so CT was obtained, c/w soft tissue edema vs. cellulitis (no abscess or hematoma). Overnight doxycyline added by legal entity controller. Given that pt is now clinically worsening - WBC now elevated again, fevers spikes and RLE rash / cellulitis, will broaden Abx coverage - will switch ceftriaxone to cefepime Chronic systolic heart failure, EF 30-34%, TTE 2017) sp ICD, equivocal volume status Some congestion on CXR Echo repeated - mostly unchanged from previous study of 2017, mild dilatation of the LV chamber with moderate concentric LVH and the wall segments not akinetic. Slightly reduced LV systolic function, EF 30 to 35. There is a large sized apical, septal and anteroseptal wall motion normality with akinesis of the segments. Poorly visualized valvular structures without significant stenosis or regurgitation by Doppler. Cardiology consulted, diuretics restarted - now on Bumex Cont. to closely monitor fluid status ARF on CRI Held home diuretic, ARB on admission until creatinine at baseline Cr much improved, down to 1.6-1.7 from 2.75 (1.6 -1.7 seems to be baseline) Cont. to monitor Bumex restarted RLE pain and new rash - Doppler obtained - negative for DVT - rash spreading laterally from medial knee area quite fast and skin very tender to touch - concern for possible new onset of shingles - started valacyclovir - antibiotics continued given bacteremia and poss. cellulitis of RLE - CT of RLE obtained - no abscess or hematoma, image c/w soft tissue edema and poss. cellulitis - pain now much improved, pt says that he is able to touch the skin w/o much discomfort unlike yesterday, also says that he was ambulating - cont. Abx, Abx broadened again this AM, cont. to closely monitor - will discuss further w/ ID (ID already consulted for bacteremia) Hx of paroxysmal VT as per records - on day of admission (05/26), patient actually went into wide-complex tachyca rdia, and ICD charged Currently HR well controlled Cardiology consulted, pt started on IV amiodarone on admission Control electrolytes, pt was on IV insulin which could cause hypokalemia, now on subq insulin -will monitor electrolytes closely, antony. K, and will replete as needed Hypertension BP on the lower side on admission secondary to sepsis, now improving DM2 on insulin pump Suboptimal control as of recent outpatient hemoglobin A1c of 8.28 March 2019 Hypoglycemic episode at home likely secondary to poor p.o. intake, sepsis Hold patient's insulin pump, pharmacy glycemic control consult - pt started on IV insulin on admission as blood glc level was difficult to manage, now transitioned to subq insulin Pulmonary hypertension/OHS cont. cpap/bipap DVT prophylaxis with Heparin subcu Full code Subjective Yesterday pt developed pain in his RLE and rash which started at R knee. Pain again worsened overnight and so CT was obtained overnight to r/o abscess. No abscess or hematoma identified, imaging showed soft tissue edema and poss. cellulitis. This morning pt is sitting in the chair, in NAD. Says he still feels weak and unwell. RLE pain is now better controlled, pt tells me that now he can touch it and was even able to ambulate. He could not touch his leg yesterday without causing much discomfort. Pt denies chest pain, shortness of breath, abd. pain, nausea, or vomiting. Pt spiked fevers again. Update: Later today I was notified by pt's RN that pt's wishes to have a different [facility] hospitalist for the pt. I discussed this with Dr. Flores who will be seeing the pt tomorrow instead. Review of Systems Review of Systems: All systems reviewed & are unremarkable except as noted in HPI & below As per HPI, all 10 systems reviewed, all other ROS negative Constitutional: + fever, + chills, + fatigue and + malaise Respiratory: no cough and no dyspnea Cardiovascular: + edema (chronic LE edema, R>L, now RLE more swollen); no chest pain and no palpitations Gastrointestinal: no abdominal pain, no nausea and no vomiting Musculoskeletal: RLE pain, rash and edema Integumentary: + rash (RLE (started at knee, and spread laterally) rash is more spread and darker today) Physical Exam Physical Exam: GENERAL: Middle-aged obese male, sitting up in the chair, ill- appearing HEENT: Normocephalic, atraumatic, EOMI, PERRL NECK : Supple, short neck, no tenderness CHEST : Clear to auscultation bilaterally, somewhat decreased breath sounds, no wheezing rhonchi or crackles noted HEART : Regular rate and rhythm, no obvious murmurs ABDOMEN: Positive bowel sounds, some distention, soft, obese, nontender, no guarding EXTREMITIES : Chronic lower extremity edema, right more than left, RLE thigh with new rash around knee spreading laterally (rash is darker red today), tender to touch (however pain much improved from yesterday) SKIN: warm, dry, well perfused, small wound on left heel, no drainage. Significant RLE erythema (warm, and tender) NEUROLOGIC : alert and oriented x3, no facial asymmetry, speech fluent, moves all extremities spontaneously Results & Data ([facility]) Vital Signs (Past 12 Hours) Vital Signs Temp Pulse Pulse Resp BP Pulse Ox 05/29/19 18:52 37.1 C 86 20 151/70 H 95 05/29/19 17:03 135/72 05/29/19 15:33 37.4 C 84 20 178/80 H 95 05/29/19 11:45 38.1 C H 84 18 166/95 H 94
[2019-05-30] MEDS: AMIODARONE / D5W 360 MG/200 ML BAG IV SCH ×2 (02:00→14:04)
[2019-05-30] MEDS: ACETAMINOPHEN 500 MG TAB PO SCH ×3 (06:14→21:10)
[2019-05-30] MEDS: HEPARIN SOD 5,000 UNIT/0.5 ML VIAL SQ SCH ×3 (06:14→20:36)
[2019-05-30] MEDS: LEVOTHYROXINE SODIUM 100 MCG TABLET PO SCH (06:15)
[2019-05-30] MEDS ORDERED: VANCOMYCIN HCL 1,750 MG in SODIUM CHLORIDE 0.9% 500 ML IV SCH (08:00)
[2019-05-30] MEDS ORDERED: SODIUM CHLORIDE 0.9% 1000ML 1,000 ML IV SCH (08:15)
[2019-05-30 08:18] LABS: Basophils # (auto) 0.04 K/uL (0-0.2); Basophils % (auto) 0.2 %; Eosinophils # (auto) 0.03 K/uL (0-0.5); Eosinophils % (auto) 0.2 %; Hemoglobin 12.5 g/dL (14.0-18.0); Immature Granulocytes # (auto) 0.37 K/uL (0.00-0.02); Immature Granulocytes % (auto) 2.2 %; Lymphocytes # (auto) 1.04 K/uL (1.2-3.4); Lymphocytes % (auto) 6.2 %; Mean Corpuscular Hemoglobin 29.5 pg (25-34); Mean Corpuscular Hgb Conc 33.8 g/dL (32-36); Mean Corpuscular Volume 87.3 fL (80-100); Mean Platelet Volume 9.6 fL (7.4-10.4); Monocytes % (auto) 11.3 %; Neutrophils # (auto) 13.44 K/uL (1.4-6.5); Neutrophils % (auto) 79.9 %; Platelet Count 122 K/uL (130-400); RDW Coefficient of Variation 15.8 % (11.5-14.5); RDW Standard Deviation 50.9 fL (36.4-46.3); Red Blood Count 4.24 M/uL (4.7-6.1); White Blood Count 16.82 K/uL (4.8-10.8)
[2019-05-30 08:42] LABS: BUN Creatinine Ratio 17.7 (10-20); Calcium 8.6 mg/dl (8.5-10.1); Est GFR (African American) 49.4; Est GFR (Non-African American) 42.6; Magnesium 2.2 mg/dl (1.8-2.4); Potassium 3.3 mmol/L (3.5-5.1)
[2019-05-30] MEDS ORDERED: INSULIN GLARGINE 100 UNIT/ML VIAL SC SCH ×2 (09:00→21:00)
--- NOTE | 2019-05-30 09:20 | Pharmacy Report ---
Pharmacy Glycemic Short Note 2 - Date of Service May 30, 2019 - Glycemic Short BSG Results (Last 24 hours): 05/29/19 05/29/19 05/29/19 11:36 16:11 18:47 Glucose POC Glucose 167 H 151 H 172 H 05/29/19 05/29/19 05/29/19 19:14 20:09 20:26 Glucose 154 H POC Glucose 158 H 156 H 05/29/19 05/30/19 05/30/19 21:15 07:24 08:06 Glucose 88 POC Glucose 158 H 92 OUTPATIENT ANTIDIABETIC REGIMEN: * Patient uses Tandem insulin pump (Novolog U100 insulin used in pump) * Total daily doses reviewed and ranged 160-250units/day (most of which are basal doses): Basal rate 7units/hr (168 units/day) * It appears that his pump delivers mostly basal insulin doses as he admits to rarely bolusing himself and when he does bolus he stated he can only give up to 25units per bolus dose. He does have a CGM that will suspend his basal rate when trending low. * A1c = 9% 11/03/18 ASSESSMENT: 2/3 * BSGs well controlled over last 24 hrs * Patient appears to be more insulin sensitive over the last several days - insulin doses have been tapered down as a result * Fasting BSG 88-92 this AM with 150 units basal insulin on board - will continue to titrate down basal insulin dose * Post-prandial BSGs controlled with current CF/CR - no change PLAN FOR INPATIENT GLYCEMIC CONTROL: * Basal insulin -decrease 10 % * Lantus 68 units SQ BID * Bolus insulin - no change * BSGs ACHS * Goal range: 110-140mg/dL * Correction factor: 10 mg/dL/unit * Nutritional / Prandial insulin per carb ratio of 1 unit per 3 grams CHO consumed PLAN FOR DISCHARGE: * to be determined. it seems that patient has some difficulties with using his insulin pump and may not be bolusing himself appropriately and his pump reservoir may not hold a full 24 hr supply of insulin to fit his needs.
[2019-05-30] MEDS: CEFEPIME 2,000 MG in SYRINGE 7.5 ML IV SCH (09:28)
[2019-05-30] MEDS: INSULIN ASPART 100 UNITS/ML 3 ML PEN SC SCH ×4 (09:28→20:37)
[2019-05-30] MEDS: BUMETANIDE 1 MG TAB PO SCH ×2 (09:29→15:34)
[2019-05-30] MEDS: ASPIRIN 81 MG ECTAB PO SCH (09:29)
[2019-05-30] MEDS: FLUTICASONE PROPIONATE NA SPR 16 GM BTL SCH ×2 (09:29→19:33)
[2019-05-30] MEDS: FLUTICASONE/VILANTEROL 200/25MCG 14 PUFFS/INHALER INH SCH (09:29)
[2019-05-30] MEDS: SACCHAROMYCES BOULARDII 250 MG CAP PO SCH (09:30)
[2019-05-30] MEDS: GABAPENTIN 300 MG CAP PO SCH ×3 (09:32→19:34)
[2019-05-30] MEDS: LIDOCAINE 5% 1 PATCH TD SCH (09:32)
[2019-05-30] MEDS ORDERED: POTASSIUM CHLORIDE 20 MEQ TABCR PO STA (09:53)
[2019-05-30] MEDS: INSULIN GLARGINE 100 UNIT/ML VIAL SC SCH (09:58)
--- NOTE | 2019-05-30 10:36 | Infectious Disease Consult ---
Date of Consultation May 30, 2019 Assessment & Plan (1) Gram positive sepsis: continue dapto for now, cultures now growing GGS, likely skin source. echo negative, repeat blood cultures negative, hopefully can treat with po abx if repeat blood cultures negative, will stop cefepime. History of Present Illness Attending Physician: Katharina hudson, DO pt now on cefepime and vanco. was on dapto, then ctx. had intermittent fevers over weekend and abx broadened. all repeat cultures negative, ct thigh negative. Allergies Allergy/AdvReac Type Severity Reaction Status Date / Time benzonatate AdvReac Intermediate choking, Verified 05/26/19 00:26 gagging Home Medications Home Medications Medication Instructions Recorded Confirmed Type aspirin 81 mg tablet,delayed 81 mg PO QAM 12/21/17 05/26/19 History release atorvastatin 80 mg tablet 80 mg PO QPM 12/21/17 05/26/19 History bumetanide 1 mg tablet 1 mg PO BID 12/21/17 05/26/19 History fluticasone propionate 50 2 sprays INTNAS BID gm 12/21/17 05/26/19 History mcg/actuation nasal spray,suspension levothyroxine 100 mcg capsule 100 mcg PO QAM 12/21/17 05/26/19 History losartan 25 mg tablet 25 mg PO QAM 12/21/17 05/26/19 History magnesium oxide 400 mg PO QAM cap 12/21/17 05/26/19 History metolazone 5 mg tablet 5 mg PO 3XWK tab 12/21/17 05/26/19 History metoprolol succinate 50 mg capsule 50 mg PO QPM 12/21/17 05/26/19 History sprinkle, ext. release 24 hr mometasone-formoterol HFA 200 2 puffs INH BID 12/21/17 05/26/19 History mcg-5 mcg/actuation aerosol inhaler nitroglycerin 0.4 mg sublingual 0.4 mg SL Q5M PRN 12/21/17 05/26/19 History tablet omeprazole 20 mg capsule,delayed 20 mg PO QPM 12/21/17 05/26/19 History release spironolactone 25 mg tablet 25 mg PO QAM 12/21/17 05/26/19 History tramadol 50 mg tablet 50 mg PO Q6H PRN 12/21/17 05/26/19 History amiodarone 100 mg PO QAM 10/20/18 05/26/19 History Trulicity 1.5 mg SQ WK 12/23/18 05/26/19 History ergocalciferol (vitamin D2) 5,000 unit PO WK 04/12/19 05/26/19 History gabapentin 300 mg PO TID 04/12/19 05/26/19 History hyoscyamine sulfate [Levsin] 0.125 mg PO TID 04/12/19 05/26/19 History potassium chloride [Klor-Con M20] 40 meq PO BID 04/12/19 05/26/19 History insulin aspart U-100 [Novolog 0 unit CONTINUOUS SUBCUTANEOUS 05/26/19 05/26/19 History U-100 Insulin aspart] INFUSION CONTINOUS Patient History Medical History Asthma Dulera BID, very rare albuterol inhaler use, "maybe once per year" Cardiac defibrillator in situ [employer], implanted 06/01/12 for low EF; most recent interrogation 11/09/18. Battery reserve adequate, but reaching PRISCILA, and patient to have re-checked in 1 month. H/O 10 discharges in one day 2/2 change in diuretic causing acute electrolyte imbalance and pVT. CKD (chronic kidney disease) stage 3, GFR 30-59 ml/min Baseline Cr 1.6-1.7 Diabetes mellitus with diabetic polyneuropathy Dyslipidemia GERD (gastroesophageal reflux disease) HTN (hypertension) Hx of myocardial infarction [place]. 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 Hx of osteomyelitis Toe, ~3yrs ago. Amputated. Hypothyroid (Chronic) Ischemic cardiomyopathy (Chronic) EF 30-34%, s/p ICD Mass LEFT FOOT Morbid obesity NINA on CPAP Peripheral edema Chronic B/L Ventricular tachycardia Surgical History H/O shoulder surgery History of colonoscopy History of sinus surgery Hx of amputation of lesser toe Hx of tonsillectomy Family History Sister Family history of diabetes mellitus 2 Grandmother (Maternal) Family history of diabetes mellitus Grandfather (Maternal) Family history of diabetes mellitus Other No family history of adverse response to anesthesia Social History Preferred Language: Chinese Communication Ability: Effective Blueprint Reproducer Required: No Beliefs That Will Affect Care: None Current Living Situation: Spouse Feels Safe at Home: Yes Safety Concerns: Feels Safe At This Time Smoking Status: Never smoker Second Hand Exposure: Yes (/parents smoke) ; Hx Alcohol Use: Yes Alcohol type: hard liquor Hx Substance Use: No Results & Data Vital Signs (Past 12 Hours) Vital Signs Temp Pulse Pulse Resp BP BP Pulse Ox 05/30/19 08:20 36.6 C 63 14 122/67 96 05/30/19 07:18 66 05/30/19 03:38 37.0 C 67 19 102/50 L 94 05/30/19 00:03 37.7 C H 80 20 101/55 L 90 05/30/19 00:00 99 H PG Care Time/CCT Total # of Minutes Spent Total Time Spent with Patient: Total time spent is greater than 50% in coordination of care (as documented) at patient's floor/unit and/or counseling patient: Coding Diagnoses Gram positive sepsis A41.89
--- NOTE | 2019-05-30 10:40 | Infectious Disease Progress Nt ---
Date of Service May 30, 2019 Assessment & Plan (1) Gram positive sepsis: can change to rocephin 2 g daily, cultures growing GGS, likely skin source. echo negative, repeat blood cultures negative, continue IV abx for now, suspect vanco dosing will be difficulty due to obesity, ckd. Subjective pt had intermittent fevers over weekend, now afebrile. wbc improved to 16. abx changed to vanco and cefepime, remains on this, tolerating repeat blood cultures negative ct thigh negative. Results & Data Vital Signs (Past 12 Hours) Vital Signs Temp Pulse Pulse Resp BP BP Pulse Ox 05/30/19 08:20 36.6 C 63 14 122/67 96 05/30/19 07:18 66 05/30/19 03:38 37.0 C 67 19 102/50 L 94 05/30/19 00:03 37.7 C H 80 20 101/55 L 90 05/30/19 00:00 99 H Laboratory Results Microbiology 05/27/19 23:29 Blood Aerobic Blood Culture - Preliminary No growth in Aerobic bottle after 48 hours. 05/27/19 23:29 Blood Anaerobic Blood Culture - Final 05/27/19 23:28 Blood Aerobic Blood Culture - Preliminary No growth in Aerobic bottle after 48 hours. 05/27/19 23:28 Blood Anaerobic Blood Culture - Final 05/25/19 21:57 Blood Aerobic Blood Culture - Preliminary Group G Beta Strep 05/25/19 21:57 Blood Anaerobic Blood Culture - Preliminary No growth in Anaerobic bottle after 48 hours. 05/25/19 21:53 Blood Aerobic Blood Culture - Preliminary No growth in Aerobic bottle after 48 hours. 05/25/19 21:53 Blood Anaerobic Blood Culture - Preliminary Group G Beta Strep PG Care Time/CCT Total # of Minutes Spent Total Time Spent with Patient: Total time spent is greater than 50% in coordination of care (as documented) at patient's floor/unit and/or counseling patient: Coding Level of Care Code 73180 Subseq Hosp Care Lvl 1 Diagnoses Gram positive sepsis A41.89
--- NOTE | 2019-05-30 11:21 | Cardiology Progress Note ---
Date of Service May 30, 2019 Assessment & Plan (1) Gram positive sepsis: (2) Atrial flutter with rapid ventricular response: (3) Wide-complex tachycardia: (4) ICD (implantable cardioverter-defibrillator), dual, in situ: The patient had additional wide-complex tachycardia last night. He was started on amiodarone infusion and his arrhythmia is improved. He did not receive any therapy from his device. Vancomycin was added yesterday due to expanding cellulitis of the right lower extremities. ID is following. Subjective The patient is comfortable sitting in a chair today. He did have additional wide-complex tachycardia last evening which was treated with the start of amiodarone. Review of Systems Review of Systems: All systems reviewed & are unremarkable except as noted in HPI & below Nothing additional to add. Physical Exam Physical Exam: General: no acute distress and stated age Head: normocephalic, no masses, lesions, tenderness or abnormalities Eyes: conjunctiva are pink and non-injected, sclera clear Neck: supple, no adenopathy, no bruits, normal jugular venous pulse, no hepatojugular reflux Chest: normal shape and normal respiratory effort Lungs: clear to auscultation and percussion Cardiac Exam: - regular rate & rhythm, no murmurs gallops or rubs - normal S1, normal S2 Pulses: 2(+) throughout Abdomen: abdomen soft, non-tender, no abnormal masses and no hepatosplenomegaly Musculoskeletal: no gait disturbance, no joint inflammation, no deforming arthritis Extremities: Bilateral lower extremity edema which is most likely chronic and lymphedema. The entire right lower extremity is erythematous. Neuro: grossly normal exam Results & Data Vital Signs (Past 12 Hours) Vital Signs Temp Pulse Pulse Resp BP BP Pulse Ox 05/30/19 10:51 36.7 C 63 22 114/61 97 05/30/19 08:20 36.6 C 63 14 122/67 96 05/30/19 07:18 66 05/30/19 03:38 37.0 C 67 19 102/50 L 94 05/30/19 00:03 37.7 C H 80 20 101/55 L 90 05/30/19 00:00 99 H Laboratory Results Laboratory Results - last 24 hr 05/29/19 05/29/19 05/29/19 11:36 16:11 18:47 WBC RBC Hgb Hct MCV MCH MCHC RDW Std Deviation RDW Coeff of Мария Plt Count MPV Immature Gran % (Auto) Neut % (Auto) Lymph % (Auto) [place] % (Auto) Eos % (Auto) Baso % (Auto) Immature Gran # (Auto) Neut # (Auto) Lymph # (Auto) [place] # (Auto) Eos # (Auto) Baso # (Auto) Sodium Potassium Chloride Carbon Dioxide Anion Gap BUN Creatinine Est Cr Clr Drug Dosing Est GFR ( Amer) Est GFR (Non-Af Amer) BUN/Creatinine Ratio Glucose POC Glucose 167 H 151 H 172 H Lactate Calcium Magnesium Procalcitonin 05/29/19 05/29/19 05/29/19 19:14 20:09 20:26 WBC 17.96 H RBC 4.31 L Hgb 12.9 L Hct 37.2 L MCV 86.3 MCH 29.9 MCHC 34.7 RDW Std Deviation 49.6 H RDW Coeff of Мария 15.5 H Plt Count 134 MPV 10.2 Immature Gran % (Auto) 1.4 Neut % (Auto) 83.4 Lymph % (Auto) 4.8 [place] % (Auto) 10.1 Eos % (Auto) 0.1 Baso % (Auto) 0.2 Immature Gran # (Auto) 0.25 H Neut # (Auto) 14.97 H Lymph # (Auto) 0.86 L [place] # (Auto) 1.82 H Eos # (Auto) 0.02 Baso # (Auto) 0.04 Sodium Potassium Chloride Carbon Dioxide Anion Gap BUN Creatinine Est Cr Clr Drug Dosing Est GFR ( Amer) Est GFR (Non-Af Amer) BUN/Creatinine Ratio Glucose POC Glucose 158 H 156 H Lactate Calcium Magnesium Procalcitonin 05/29/19 05/29/19 05/29/19 20:26 20:26 20:26 WBC RBC Hgb Hct MCV MCH MCHC RDW Std Deviation RDW Coeff of Мария Plt Count MPV Immature Gran % (Auto) Neut % (Auto) Lymph % (Auto) [place] % (Auto) Eos % (Auto) Baso % (Auto) Immature Gran # (Auto) Neut # (Auto) Lymph # (Auto) [place] # (Auto) Eos # (Auto) Baso # (Auto) Sodium 132 L Potassium 3.6 Chloride 100 Carbon Dioxide 24 Anion Gap 8.0 BUN 30 H Creatinine 1.56 H Est Cr Clr Drug Dosing 90.3 Est GFR ( Amer) 57.1 Est GFR (Non-Af Amer) 49.3 BUN/Creatinine Ratio 19.4 Glucose 154 H POC Glucose Lactate 1.1 Calcium 8.6 Magnesium 2.1 Procalcitonin 3.42 H 05/29/19 05/30/19 05/30/19 21:15 07:24 08:06 WBC 16.82 H RBC 4.24 L Hgb 12.5 L Hct 37.0 L MCV 87.3 MCH 29.5 MCHC 33.8 RDW Std Deviation 50.9 H RDW Coeff of Мария 15.8 H Plt Count 122 L MPV 9.6 Immature Gran % (Auto) 2.2 Neut % (Auto) 79.9 Lymph % (Auto) 6.2 [place] % (Auto) 11.3 Eos % (Auto) 0.2 Baso % (Auto) 0.2 Immature Gran # (Auto) 0.37 H Neut # (Auto) 13.44 H Lymph # (Auto) 1.04 L [place] # (Auto) 1.90 H Eos # (Auto) 0.03 Baso # (Auto) 0.04 Sodium Potassium Chloride Carbon Dioxide Anion Gap BUN Creatinine Est Cr Clr Drug Dosing Est GFR ( Amer) Est GFR (Non-Af Amer) BUN/Creatinine Ratio Glucose POC Glucose 158 H 92 Lactate Calcium Magnesium Procalcitonin 05/30/19 08:06 WBC RBC Hgb Hct MCV MCH MCHC RDW Std Deviation RDW Coeff of Мария Plt Count MPV Immature Gran % (Auto) Neut % (Auto) Lymph % (Auto) [place] % (Auto) Eos % (Auto) Baso % (Auto) Immature Gran # (Auto) Neut # (Auto) Lymph # (Auto) [place] # (Auto) Eos # (Auto) Baso # (Auto) Sodium 133 L Potassium 3.3 L Chloride 99 Carbon Dioxide 27 Anion Gap 6.0 BUN 31 H Creatinine 1.76 H Est Cr Clr Drug Dosing 79.0 Est GFR ( Amer) 49.4 Est GFR (Non-Af Amer) 42.6 BUN/Creatinine Ratio 17.7 Glucose 88 POC Glucose Lactate Calcium 8.6 Magnesium 2.2 Procalcitonin Medications Administered Current Inpatient Medications Acetaminophen (Tylenol) 1,000 mg PO Q8H [facility] Stop: 06/28/19 21:59 Last Admin: 05/30/19 06:14 Dose: 1,000 mg Documented by: Aspirin (Ecotrin Ectab) 81 mg PO QAM [facility] Stop: 06/25/19 08:59 Last Admin: 05/30/19 09:29 Dose: 81 mg Documented by: Bumetanide (Bumex) 1 mg PO BID17 [facility] Stop: 06/28/19 16:59 Last Admin: 05/30/19 09:29 Dose: 1 mg Documented by: Dextrose (Dextrose 50%) 25 - 50 ml IV UD PRN; Protocol PRN Reason: Hypoglycemia Protocol Stop: 06/28/19 00:29 Fluticasone Propionate (Flonase) 2 sprays NA BID [facility] Stop: 06/25/19 08:59 Last Admin: 05/30/19 09:29 Dose: 2 sprays Documented by: Fluticasone/Vilanterol (Breo Ellipta 200/25 Mcg Inh) 1 puffs INH DAILY [facility] Stop: 06/25/19 08:59 Last Admin: 05/30/19 09:29 Dose: 1 puffs Documented by: Gabapentin (Neurontin) 300 mg PO TID [facility] Stop: 06/27/19 13:59 Last Admin: 05/30/19 09:32 Dose: 300 mg Documented by: Glucagon (Glucagen) 1 mg IM UD PRN; Protocol PRN Reason: Hypoglycemia Protocol Stop: 06/28/19 00:29 Glucose (Glucose 40%) 15 - 30 gm PO UD PRN; Protocol PRN Reason: Hypoglycemia Protocol Stop: 06/28/19 00:29 Glucose (Dex4 Glucose) 4 - 8 tabs PO UD PRN; Protocol PRN Reason: Hypoglycemia Protocol Stop: 06/28/19 00:29 Heparin Sodium (Porcine) (Heparin Sodium (Porcine)) 5,000 units SQ Q8 [facility] Stop: 06/25/19 05:59 Last Admin: 05/30/19 06:14 Dose: 5,000 units Documented by: Hydromorphone HCl (Dilaudid) 0.5 mg IV Q3H PRN PRN Reason: Pain Stop: 06/09/19 22:31 Last Admin: 05/29/19 17:36 Dose: 0.5 mg Documented by: Promethazine HCl 12.5 mg/ (Sodium Chloride) 50.5 mls @ 202 mls/hr IV Q6H PRN PRN Reason: Nausea And Vomiting Stop: 06/25/19 03:21 Cefepime HCl 2,000 mg/ Syringe 20 mls @ 5.5 mls/min IV Q12H [facility]; Protocol Stop: 06/08/19 19:59 Last Admin: 05/30/19 09:28 Dose: 5.5 mls/min Documented by: Amiodarone HCl/Dextrose (Nexterone / D5w) 360 mg in 200 mls @ 16.667 mls/hr IV .Q12H [facility] Stop: 06/29/19 01:14 Last Admin: 05/30/19 02:00 Dose: 0.5 mg/min, 16.7 mls/hr Documented by: Vancomycin HCl 1,750 mg/ (Sodium Chloride) 535 mls @ 200 mls/hr IV Q12H [facility] Stop: 06/09/19 07:59 Last Admin: 05/30/19 09:29 Dose: 200 mls/hr Documented by: Insulin Aspart (Novolog Flexpen) 0 units SC ACHS [facility] Stop: 06/26/19 20:59 Last Admin: 05/30/19 09:28 Dose: 15 units Documented by: Insulin Glargine (Lantus) 68 units SC BID [facility]; Protocol Stop: 06/29/19 08:59 Last Admin: 05/30/19 09:30 Dose: 68 units Documented by: Levothyroxine Sodium (Synthroid) 100 mcg PO DAILYBB [facility] Stop: 06/25/19 06:29 Last Admin: 05/30/19 06:15 Dose: 100 mcg Documented by: Lidocaine (Lidoderm 5%) 1 patch TD QAM [facility] Stop: 06/26/19 00:59 Last Admin: 05/30/19 09:32 Dose: 1 patch Documented by: Metoprolol Succinate (Toprol Xl) 25 mg PO QPM [facility] Stop: 06/25/19 20:59 Last Admin: 05/29/19 21:43 Dose: 25 mg Documented by: Miscellaneous (Remove Lidoderm Patch) 1 ea N/A DAILY@2100 [facility] Stop: 06/26/19 12:59 Last Admin: 05/29/19 15:53 Dose: Not Given Documented by: Miscellaneous (Carbohydrates For Hypoglycemia) 15 - 30 gm PO UD PRN PRN Reason: Hypoglycemia Treatment Stop: 06/28/19 00:29 Last Admin: 05/29/19 00:15 Dose: 15 gm Documented by: Miscellaneous Information (Consult Glycemic Management Pharmacy) 1 ea N/A UD PRN PRN Reason: Consult Stop: 06/25/19 03:43 Miscellaneous Information (Consult) 1 ea N/A UD PRN PRN Reason: Consult Stop: 06/28/19 19:37 Oxycodone HCl (Roxicodone Immediate Rel) 5 - 10 mg PO Q4H PRN PRN Reason: Pain Stop: 06/12/19 19:28 Last Admin: 05/29/19 19:45 Dose: 5 mg Documented by: Pantoprazole Sodium (Protonix) 40 mg PO QPM [facility] Stop: 06/25/19 20:59 Last Admin: 05/29/19 21:42 Dose: 40 mg Documented by: Saccharomyces Boulardii (Florastor) 250 mg PO DAILY [facility] Stop: 06/27/19 19:44 Last Admin: 05/30/19 09:30 Dose: 250 mg Documented by: Tramadol HCl (Ultram) 50 mg PO Q6H PRN PRN Reason: pain Stop: 06/25/19 03:21 Last Admin: 05/29/19 17:36 Dose: 50 mg Documented by:
--- NOTE | 2019-05-30 12:37 | Electrocardiogram Report ---
Test Reason : Blood Pressure : / mmHG Vent. Rate : 144 BPM Atrial Rate : 144 BPM P-R Int : 128 ms QRS Dur : 126 ms QT Int : 370 ms P-R-T Axes : 000 099 -68 degrees QTc Int : 572 ms Wide QRS tachycardia Non-specific intra-ventricular conduction block Cannot rule out Septal infarct , age undetermined Lateral infarct (cited on or before 26-MAY-2019) Marked T wave abnormality, consider inferior ischemia Abnormal ECG When compared with ECG of 26-MAY-2019 16:32, Significant changes have occurred Confirmed by Tereso Reyna ([id number]) on 05/30/2019 12:36:56 PM Referred By: REFERRED SELF Confirmed By:Tereso Reyna
[2019-05-30] MEDS: cefTRIAXone SODIUM 2,000 MG in DEXTROSE 5% 50 ML IV SCH (15:34)
--- NOTE | 2019-05-30 16:52 | Hospitalist Progress Note ---
Date of Service May 30, 2019 Assessment & Plan (1) Septicemia: Resuscitated from a sepsis standpoint, however, multiple antibiotic changes and worsening of rash and now new ventricular rhythm is present. Antibiotics were broadened last night to include vancomycin and infectious disease has waited and and prefers Rocephin 2 g IV as monotherapy. The patient and family are fine with this and he is clinically improved this morning. Continue treatment of his rash and bacteremia with Rocephin. Repeat blood cultures pending. Patient has remained afebrile overnight. (2) Left leg cellulitis: Continue Rocephin as above. Supportive care with oxycodone/gabapentin (3) LV dysfunction: Overall positive volume status secondary to resuscitation efforts. Do not feel he is in heart failure at this time and home Bumex has been started overnight with good diuresis. Continue home Bumex for now. (4) Ventricular dysrhythmia: Ventricular dysrhythmia earlier in his hospitalization likely secondary to electrolyte abnormalities with low K as well as infection. As infection has worsened on his left lower extremity we are now seeing him flip into a ventricular dysrhythmia again overnight. This was controlled with amiodarone and he remains on amnio drip today. Continue per cardiology management. (5) Diabetes mellitus: On insulin pump at home which is currently being held. Continue basal bolus insulin. Pharmacy is assisting with day-to-day management. (6) Hypokalemia: Likely secondary to diuretics. Replaced and repeat in a.m. (7) CHATO (acute kidney injury): Acute worsening of chronic CKD 3. The patient is volume up as discussed above. Bumex has been started. Will trend. (8) NINA on CPAP: Continue CPAP while sleeping and at night. (9) ICD (implantable cardioverter-defibrillator), dual, in situ: Fired once this admission. No firings overnight. (10) DVT prophylaxis: Heparin Full code Disposition-continue PCU monitoring Katharina Flores DO [facility] Hospitalist Subjective Left leg improved with respect to redness and pain. Bumex with good output noted. Rhythm stabilized with amio drip and tele review reveals sinsu rhythm overnight. family at bedside and good with plan below. Review of Systems Review of Systems: All systems reviewed & are unremarkable except as noted in Subjective Physical Exam Physical Exam: CONSTITUTIONAL: obese, vitals as above, generally well- appearing EYES: normal conjunctivae, no scleral icterus ENT: MMM NECK: trachea midline, no lymphadenopathy RESPIRATORY: clear to auscultation bilaterally, no crackles, rales or wheezes, normal respiratory effort CARDIOVASCULAR: regular rate and rhythm, S1 and 2 heard without murmurs, gallops or rubs, no JVD, no peripheral edema GASTROINTESTINAL: soft, nontender, nondistended and protuberant MUSCULOSKELETAL: moving all extremities equally SKIN: warm and dry, left leg with erythema to proximal thigh with clear line of demarcation wtih improvement in erythema from bright beefy red last night to more light pink today. Erythema extends the entire way down the leg. Erythroderma on lower legs bilaterally. No open wounds noted. NEUROLOGIC: CN 2-12 grossly intact, normal cognition, normal speech, no gross focal deficits. PSYCHIATRIC: alert cooperative and oriented to person, place and time. Results & Data ([facility]) Vital Signs (Past 12 Hours) Vital Signs Temp Pulse Pulse Resp BP Pulse Ox 05/30/19 15:42 36.8 C 65 18 96/54 L 98 05/30/19 14:48 65 05/30/19 10:51 36.7 C 63 22 114/61 97 05/30/19 08:20 36.6 C 63 14 122/67 96 05/30/19 07:18 66 Laboratory Results Short CBC 05/29/19 05/30/19 Range/Units 20:26 08:06 WBC 17.96 H 16.82 H (4.8-10.8) K/uL Hgb 12.9 L 12.5 L (14.0-18.0) g/dL Hct 37.2 L 37.0 L (42-52) % Plt Count 134 122 L (130-400) K/uL BMP 05/29/19 05/30/19 20:26 08:06 Sodium 132 L 133 L Potassium 3.6 3.3 L Chloride 100 99 Carbon Dioxide 24 27 BUN 30 H 31 H Creatinine 1.56 H 1.76 H Glucose 154 H 88 Calcium 8.6 8.6 Medications Administered Current Inpatient Medications Acetaminophen (Tylenol) 1,000 mg PO Q8H [facility] Stop: 06/28/19 21:59 Last Admin: 05/30/19 14:05 Dose: 1,000 mg Documented by: Aspirin (Ecotrin Ectab) 81 mg PO QAM [facility] Stop: 06/25/19 08:59 Last Admin: 05/30/19 09:29 Dose: 81 mg Documented by: Bumetanide (Bumex) 1 mg PO BID17 [facility] Stop: 06/28/19 16:59 Last Admin: 05/30/19 15:34 Dose: 1 mg Documented by: Dextrose (Dextrose 50%) 25 - 50 ml IV UD PRN; Protocol PRN Reason: Hypoglycemia Protocol Stop: 06/28/19 00:29 Fluticasone Propionate (Flonase) 2 sprays NA BID [facility] Stop: 06/25/19 08:59 Last Admin: 05/30/19 09:29 Dose: 2 sprays Documented by: Fluticasone/Vilanterol (Breo Ellipta 200/25 Mcg Inh) 1 puffs INH DAILY [facility] Stop: 06/25/19 08:59 Last Admin: 05/30/19 09:29 Dose: 1 puffs Documented by: Gabapentin (Neurontin) 300 mg PO TID [facility] Stop: 06/27/19 13:59 Last Admin: 05/30/19 14:05 Dose: 300 mg Documented by: Glucagon (Glucagen) 1 mg IM UD PRN; Protocol PRN Reason: Hypoglycemia Protocol Stop: 06/28/19 00:29 Glucose (Glucose 40%) 15 - 30 gm PO UD PRN; Protocol PRN Reason: Hypoglycemia Protocol Stop: 06/28/19 00:29 Glucose (Dex4 Glucose) 4 - 8 tabs PO UD PRN; Protocol PRN Reason: Hypoglycemia Protocol Stop: 06/28/19 00:29 Heparin Sodium (Porcine) (Heparin Sodium (Porcine)) 5,000 units SQ Q8 [facility] Stop: 06/25/19 05:59 Last Admin: 05/30/19 14:05 Dose: 5,000 units Documented by: Hydromorphone HCl (Dilaudid) 0.5 mg IV Q3H PRN PRN Reason: Pain Stop: 06/09/19 22:31 Last Admin: 05/29/19 17:36 Dose: 0.5 mg Documented by: Promethazine HCl 12.5 mg/ (Sodium Chloride) 50.5 mls @ 202 mls/hr IV Q6H PRN PRN Reason: Nausea And Vomiting Stop: 06/25/19 03:21 Amiodarone HCl/Dextrose (Nexterone / D5w) 360 mg in 200 mls @ 16.667 mls/hr IV .Q12H [facility] Stop: 06/29/19 01:14 Last Admin: 05/30/19 14:04 Dose: 0.5 mg/min, 16.7 mls/hr Documented by: Ceftriaxone Sodium 2,000 mg/ (Dextrose) 70 mls @ 100 mls/hr IV DAILY@1500 [facility]; Protocol Stop: 06/09/19 15:14 Last Infusion: 05/30/19 16:24 Dose: Infused Documented by: Insulin Aspart (Novolog Flexpen) 0 units SC ACHS [facility] Stop: 06/26/19 20:59 Last Admin: 05/30/19 11:49 Dose: 13 units Documented by: Insulin Glargine (Lantus) 55 units SC BID [facility]; Protocol Stop: 06/29/19 20:59 Levothyroxine Sodium (Synthroid) 100 mcg PO DAILYBB [facility] Stop: 06/25/19 06:29 Last Admin: 05/30/19 06:15 Dose: 100 mcg Documented by: Lidocaine (Lidoderm 5%) 1 patch TD QAM [facility] Stop: 06/26/19 00:59 Last Admin: 05/30/19 09:32 Dose: 1 patch Documented by: Metoprolol Succinate (Toprol Xl) 25 mg PO QPM [facility] Stop: 06/25/19 20:59 Last Admin: 05/29/19 21:43 Dose: 25 mg Documented by: Miscellaneous (Remove Lidoderm Patch) 1 ea N/A DAILY@2100 [facility] Stop: 06/26/19 12:59 Last Admin: 05/29/19 15:53 Dose: Not Given Documented by: Miscellaneous (Carbohydrates For Hypoglycemia) 15 - 30 gm PO UD PRN PRN Reason: Hypoglycemia Treatment Stop: 06/28/19 00:29 Last Admin: 05/29/19 00:15 Dose: 15 gm Documented by: Miscellaneous Information (Consult Glycemic Management Pharmacy) 1 ea N/A UD PRN PRN Reason: Consult Stop: 06/25/19 03:43 Oxycodone HCl (Roxicodone Immediate Rel) 5 - 10 mg PO Q4H PRN PRN Reason: Pain Stop: 06/12/19 19:28 Last Admin: 05/29/19 19:45 Dose: 5 mg Documented by: Pantoprazole Sodium (Protonix) 40 mg PO QPM [facility] Stop: 06/25/19 20:59 Last Admin: 05/29/19 21:42 Dose: 40 mg Documented by: Saccharomyces Boulardii (Florastor) 250 mg PO DAILY [facility] Stop: 06/27/19 19:44 Last Admin: 05/30/19 09:30 Dose: 250 mg Documented by: Tramadol HCl (Ultram) 50 mg PO Q6H PRN PRN Reason: pain Stop: 06/25/19 03:21 Last Admin: 05/29/19 17:36 Dose: 50 mg Documented by:
[2019-05-30] MEDS: OXYCODONE HCL IR 5 MG TAB (IMMEDIATE RELEASE) PO PRN (17:43)
[2019-05-30] MEDS: PANTOprazole 40 MG TAB PO SCH (19:34)
[2019-05-30] MEDS: METOPROLOL SUCC 25MG EXT REL TAB PO SCH (19:35)
[2019-05-30] MEDS ORDERED: AMIODARONE IV BOLUS / DRIP IV STA (21:31)
[2019-05-30] MEDS ORDERED: AMIODARONE / D5W 150 MG/100 ML BAG IV STA (21:31)
[2019-05-30] MEDS ORDERED: AMIODARONE 150MG / 100ML D5W IV ONE (21:34)
[2019-05-30] MEDS ORDERED: AMIODARONE / D5W 360 MG/200 ML BAG IV SCH (21:45)
[2019-05-30] MEDS ORDERED: AMIODARONE / D5W 150 MG/100 ML BAG IV ONE ×2 (21:49→22:25)
[2019-05-30] MEDS ORDERED: MAGNESIUM SULFATE / D5W 1 GM/100 ML BAG IV ONE (22:00)
[2019-05-30] MEDS ORDERED: POTASSIUM CHLORIDE 20 MEQ TABCR PO ONE ×2 (22:00→22:45)
[2019-05-30] MEDS ORDERED: ALBUMIN 25% 50 ML IV ONE (22:15)
[2019-05-30 22:25] LABS: BUN Creatinine Ratio 17.7 (10-20); Calcium 8.4 mg/dl (8.5-10.1); Creatinine Clr Calc Pharmacy 68.5 ml/min; Est GFR (African American) 41.5; Est GFR (Non-African American) 35.8; Magnesium 1.9 mg/dl (1.8-2.4); Potassium 3.2 mmol/L (3.5-5.1)
[2019-05-30] MEDS ORDERED: SODIUM CHLORIDE 0.9% 500 ML IV ONE (22:26)
--- NOTE | 2019-05-30 22:29 | Communication Note ---
Date of Service: May 30, 2019 Overnight developments : 2/3, 9:30 PM Made aware by RN of uncontrolled wide-complex tachycardia CR 140s, SBP 100s. Amiodarone drip was off for about 10 minutes secondary to IV access issues as per RN. Patient comfortable as per RN. Amiodarone boluses x 3 administered followed by reinitiation of amiodarone infusion protocol Serum K 3.2 Serum magnesium 1.9 serum crea 2 from 1.6 AP Wide-complex tachycardia Possible overdiuresis Continue Amiodarone infusion Hold Bumex IV albumin, cautious crystalloid administration in light of cardiomyopathy Replace electrolytes IV Lopressor as needed 2/4, 3AM Persistent wide-complex tachycardia as per RN. Cardiac rate 160s, SBP 80-100s Patient sleeping as per RN after earlier Ativan administration for anxiety. Case discussed with Dr. Nazario (photonics engineering technologist on-call) over the phone. He recommends addition of Lidocaine infusion tx to ongoing amiodarone infusion and concomitant initiation of oral Amiodarone 200 mg p.o. 3 times daily. Patient transferred to ICU to facilitate Lidocaine antiarrhythmic infusion as per protocol as per PCU nurse. Patient updated of developments over the phone. Will relay to AM provider. .
[2019-05-30] MEDS: MAGNESIUM SULFATE / D5W 1 GM/100 ML BAG IV ONE ×2 (22:37→23:10)
[2019-05-30] MEDS: POTASSIUM CHLORIDE / WTR 10 MEQ/100 ML PLCT IV SCH ×2 (22:38→23:43)
[2019-05-30] MEDS ORDERED: METOPROLOL TARTRATE 1 MG/ML VIAL IV STA (23:15)
[2019-05-30] MEDS ORDERED: POTASSIUM CHLORIDE 40 MEQ in SODIUM CHLORIDE 0.9% 1000ML 1,000 ML IV SCH (23:30)
[2019-05-31] MEDS ORDERED: ALBUMIN 25% 50 ML IV ONE ×2 (00:19→02:58)
[2019-05-31] MEDS: AMIODARONE / D5W 360 MG/200 ML BAG IV SCH ×3 (00:39→23:38)
[2019-05-31] MEDS ORDERED: METOPROLOL TARTRATE 1 MG/ML VIAL IV STA ×2 (02:20→04:28)
[2019-05-31] MEDS ORDERED: METOPROLOL TARTRATE 1 MG/ML VIAL IV ONE (02:23)
[2019-05-31] MEDS ORDERED: LORazepam 0.25 MG/0.5 ML VIAL IV STA (02:30)
[2019-05-31] MEDS ORDERED: LORazepam 2 MG/4 ML VIAL ONE (02:32)
[2019-05-31] MEDS ORDERED: DOCUSATE SODIUM/SENNA 50/8.6MG TAB PO ONE (02:45)
[2019-05-31] MEDS ORDERED: AMIODARONE / D5W 150 MG/100 ML BAG IV ONE (02:58)
[2019-05-31] MEDS ORDERED: AMIODARONE 150MG / 100ML D5W IV ONE (03:03)
[2019-05-31] MEDS ORDERED: LIDOCAINE/D5W DRIP 4MG/ML 2,000 MG/500 ML BAG IV SCH (03:14)
[2019-05-31] MEDS ORDERED: LIDOCAINE IV BOLUS & DRIP IV STA (03:14)
[2019-05-31] MEDS ORDERED: AMIODARONE 200 MG TAB PO SCH (03:15)
[2019-05-31] MEDS ORDERED: AMIODARONE / D5W 360 MG/200 ML BAG IV SCH (03:31)
--- NOTE | 2019-05-31 04:31 | Critical Care Consultation ---
Date of Consultation May 31, 2019 Assessment & Plan (1) Admitted to intensive care unit: Reason Critically Ill: 53-year-old male being treated for sepsis, hospitalization complicated by ventricular dysrhythmias, transferred to ICU with sustained ventricular dysrhythmia Neuro - [facility] ICU: Negative Cardiac - Arrhythmiapatient course complicated with ventricular dysrhythmias, has AICD which had shocked patient on this hospitalization -Approximately 9 PM last night, patient entered questionable for V. tach versus wide-complex tachycardia with rapid ventricular response, remained asymptomatic -Unresponsive to amiodarone boluses and drip, lidocaine added without response -Patient cardioverted to sinus rhythm this morning by Dr. Nazario -Troponins negative, maximizing electrolytes -We will continue to monitor on telemetry -Monitor routine EKGs -Cardiology consulted, follow-up recommendations -Continue amiodarone and lidocaine drips Systolic CHFpatient with EF 30 to 35% -Continue ASA, MTP, Bumex -Strict I's and O's daily weights -Follow-up cardiology recommendations -Diuresis as needed -Strict I's and O's daily weights Respiratory - OSApatient wears CPAP at night, room air during day -Currently on BiPAP as patient is drowsy after receiving fentanyl/Versed for cardioversion, weaning as tolerated -Maintaining sats on continuous pulse ox GI - N.p.o. for now due to sedation for cardioversion, will advance diet as tolerated RENAL/LYTES - CKDcreatinine consistent with prior admissions -Monitor with routine BMPs -Maintain map management and euvolemia -Avoid nephrotoxins -Monitor I's and O's Maximize electrolytes for potassium greater than 4 magnesium greater than 2, replete as necessary - Foleystrict I's and O's ENDO - DM type IIpatient has insulin pump at home, hemoglobin A1c 8.5 on this admission -Currently on sliding scale/glargine -Remains euglycemic with current therapy -ICU hyperglycemic protocol -Diabetic diet when taking p.o. Hypothyroidismcontinue Synthroid HEME - H&H stable, monitor routine CBCs ID - Sepsismost likely culprits cellulitis from right lower extremity, no other obvious source -Currently being followed by ID, follow-up recommendations -Initial blood cultures positive for group G beta strep x2 sets, repeats negative to date -Antibiotics have been narrowed to ceftriaxone -Lactate is since cleared and procalcitonin trended down, leukocytosis resolved, no longer febrile -Continue current antibiotic therapy, monitor cellulitis for improvement which border is currently marked LINES/IV ACCESS - Peripheral IVs DVT PROPHYLAXIS - Heparin I have personally spent 40 minutes of critical care time in the direct management of this patient. This is a life/limb threatening event. This includes time spent evaluating patient, direct bedside care, chart review, placing orders, interpretation of diagnostic studies, discussion with consultants, patient, and family members, as well as other required patient management activities. This time is exclusive of all separately billable procedures, and teaching time and separate from and in addition to any other critical care service time. Thank you for allowing us to participate in the care of this patient. Please refer to my attending physician's documentation for any further recommendations. (2) Gram positive sepsis: (3) ICD (implantable cardioverter-defibrillator), dual, in situ: (4) CHATO (acute kidney injury): (5) Wide-complex tachycardia: (6) Ventricular dysrhythmia: (7) NINA on CPAP: (8) Edema: (9) Systolic CHF: (10) Diabetes mellitus: History of Present Illness Attending Physician: Katharina Flores DO History of Present Illness Mr. Lyle is a 53-year-old male past medical history systolic CHF (EF 30 to 35%), ICD, proximal VT, HTN, HLD, DM type II (insulin pump), CKD, OHS who was initially admitted to the ED hospital with sepsis, ARF, cellulitis. Hospital course complicated by ventricular dysrhythmias in which the patient had previously received shock from ICD. At approximately 9 PM last night patient went into ventricular tachycardia and was treated with amiodarone and fluid jr perez without response. Patient was eventually started on lidocaine drip in addition and did not convert to sinus rhythm. Patient was transferred to the ICU, cardiology was contacted regarding patient's persistent arrhythmia. Decision was made to cardiovert at bedside. Patient was successfully cardioverted to sinus rhythm by Dr. Elizabeth in the ICU and is currently hemodynamically stable and remains in sinus rhythm. Upon the time assessment prior to cardioversion patient denied headache, syncope, dizziness, chest pain, palpitations, abdominal pain, nausea or vomiting, or weakness. Patient did report mild shortness of breath which was new onset since the dysrhythmia started previously in the night. Patient to remain in ICU for now as he remains on drips. Allergies Allergy/AdvReac Type Severity Reaction Status Date / Time benzonatate AdvReac Intermediate choking, Verified 05/26/19 00:26 gagging Home Medications Home Medications Medication Instructions Recorded Confirmed Type aspirin 81 mg tablet,delayed 81 mg PO QAM 12/21/17 05/26/19 History release atorvastatin 80 mg tablet 80 mg PO QPM 12/21/17 05/26/19 History bumetanide 1 mg tablet 1 mg PO BID 12/21/17 05/26/19 History fluticasone propionate 50 2 sprays INTNAS BID gm 12/21/17 05/26/19 History mcg/actuation nasal spray,suspension levothyroxine 100 mcg capsule 100 mcg PO QAM 12/21/17 05/26/19 History losartan 25 mg tablet 25 mg PO QAM 12/21/17 05/26/19 History magnesium oxide 400 mg PO QAM cap 12/21/17 05/26/19 History metolazone 5 mg tablet 5 mg PO 3XWK tab 12/21/17 05/26/19 History metoprolol succinate 50 mg capsule 50 mg PO QPM 12/21/17 05/26/19 History sprinkle, ext. release 24 hr mometasone-formoterol HFA 200 2 puffs INH BID 12/21/17 05/26/19 History mcg-5 mcg/actuation aerosol inhaler nitroglycerin 0.4 mg sublingual 0.4 mg SL Q5M PRN 12/21/17 05/26/19 History tablet omeprazole 20 mg capsule,delayed 20 mg PO QPM 12/21/17 05/26/19 History release spironolactone 25 mg tablet 25 mg PO QAM 12/21/17 05/26/19 History tramadol 50 mg tablet 50 mg PO Q6H PRN 12/21/17 05/26/19 History amiodarone 100 mg PO QAM 10/20/18 05/26/19 History Trulicity 1.5 mg SQ WK 12/23/18 05/26/19 History ergocalciferol (vitamin D2) 5,000 unit PO WK 04/12/19 05/26/19 History gabapentin 300 mg PO TID 04/12/19 05/26/19 History hyoscyamine sulfate [Levsin] 0.125 mg PO TID 04/12/19 05/26/19 History potassium chloride [Klor-Con M20] 40 meq PO BID 04/12/19 05/26/19 History insulin aspart U-100 [Novolog 0 unit CONTINUOUS SUBCUTANEOUS 05/26/19 05/26/19 History U-100 Insulin aspart] INFUSION CONTINOUS Patient History Medical History Asthma Dulera BID, very rare albuterol inhaler use, "maybe once per year" Cardiac defibrillator in situ [employer], implanted 06/01/12 for low EF; most recent interrogation 11/09/18. Battery reserve adequate, but reaching PRISCILA, and patient to have re-checked in 1 month. H/O 10 discharges in one day 2/2 change in diuretic causing acute electrolyte imbalance and pVT. CKD (chronic kidney disease) stage 3, GFR 30-59 ml/min Baseline Cr 1.6-1.7 Diabetes mellitus with diabetic polyneuropathy Dyslipidemia GERD (gastroesophageal reflux disease) HTN (hypertension) Hx of myocardial infarction [facility]. 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 Hx of osteomyelitis Toe, ~3yrs ago. Amputated. Hypothyroid (Chronic) Ischemic cardiomyopathy (Chronic) EF 30-34%, s/p ICD Mass LEFT FOOT Morbid obesity NINA on CPAP Peripheral edema Chronic B/L Ventricular tachycardia Surgical History H/O shoulder surgery History of colonoscopy History of sinus surgery Hx of amputation of lesser toe Hx of tonsillectomy Family History Sister Family history of diabetes mellitus 2 Grandmother (Maternal) Family history of diabetes mellitus Grandfather (Maternal) Family history of diabetes mellitus Other No family history of adverse response to anesthesia Social History Preferred Language: Greek Communication Ability: Effective Park Naturalist Required: No Beliefs That Will Affect Care: None Current Living Situation: Spouse Feels Safe at Home: Yes Safety Concerns: Feels Safe At This Time Smoking Status: Never smoker Second Hand Exposure: Yes (/parents smoke) ; Hx Alcohol Use: Yes Alcohol type: hard liquor Hx Substance Use: No Review of Systems Review of Systems: All systems reviewed & are unremarkable except as noted in HPI & below Physical Exam Constitutional: + morbidly obese and cooperative; no acute distress and not diaphoretic Eyes: PERRL, conjunctivae normal, anicteric sclerae ENMT: external ear and nose normal, oropharynx normal Neck: trachea midline, no thyromegaly Respiratory: normal respiratory effort, lungs clear to auscultation Cardiovascular: Ventricular tachycardia, bilateral lower extremity edema, unable to assess for JVD due to body habitus, Gastrointestinal (Abdomen): Abdomen obese, nontender, soft, bowel sounds auscultated all 4 quadrants Skin: Cellulitis and inflammation to right lower extremity Neurologic: PERRL, EOMI, accommodation nl, no face palsy, no dysarthria Psychiatric: A+Ox3, euthymic affect Genitourinary: Molina catheter present Results & Data ([facility]) Vital Signs (Past 12 Hours) Vital Signs Temp Pulse Pulse Resp BP BP Pulse Ox 05/31/19 04:02 165 H 17 127/83 95 05/31/19 03:46 168 H 27 H 112/76 94 05/31/19 03:36 36.9 C 05/31/19 03:34 163 H 28 H 111/61 93 05/31/19 03:18 157 H 27 H 100/61 92 05/31/19 03:07 163 H 28 H 83/57 L 92 05/31/19 03:02 36.8 C 162 H 26 H 108/57 L 05/31/19 02:56 163 H 27 H 95/62 L 96 05/31/19 02:42 145 H 18 75/64 L 95 05/31/19 02:31 149 H 19 81/59 L 94 05/31/19 02:27 152 H 105/78 05/31/19 02:00 149 H 15 105/78 97 05/31/19 01:31 137 H 18 105/70 95 05/31/19 01:19 148 H 22 104/67 96 05/31/19 01:17 139 H 15 71/60 L 94 05/31/19 01:07 137 H 105/78 96 05/31/19 01:01 147 H 19 84/65 L 96 05/31/19 00:40 134 H 20 103/67 97 05/31/19 00:30 148 H 21 100/66 97 05/31/19 00:25 147 H 21 97 05/31/19 00:21 147 H 16 105/83 96 05/31/19 00:10 147 H 19 98/69 L 97 05/31/19 00:00 145 H 15 108/57 L 97 05/30/19 23:58 146 H 16 94/64 L 97 05/30/19 23:50 144 H 21 73/64 L 97 05/30/19 23:41 143 H 15 80/54 L 96 05/30/19 23:30 131 H 16 95/60 L 95 05/30/19 23:29 150 H 15 88/63 L 92 05/30/19 23:22 152 H 101/65 05/30/19 23:15 150 H 14 101/65 95 05/30/19 23:00 128 H 21 109/82 97 05/30/19 22:51 127 H 14 97/65 L 96 05/30/19 22:45 135 H 26 H 106/66 93 05/30/19 22:31 138 H 23 103/68 97 05/30/19 22:17 137 H 16 86/70 L 97 05/30/19 22:00 140 H 18 113/72 97 05/30/19 21:55 139 H 18 101/74 96 05/30/19 21:45 138 H 19 97/76 L 96 05/30/19 21:42 139 H 19 112/66 95 05/30/19 21:40 139 H 16 125/76 95 05/30/19 21:33 140 H 16 125/76 05/30/19 19:31 36.5 C 67 18 128/66 95 05/30/19 19:20 36.8 C 92 H 18 104/60 95 Coding Level of Care Code Critical Care 1st 30-74 mins Diagnoses Admitted to intensive care unit Z78.9 Gram positive sepsis A41.89 ICD (implantable cardioverter-defibrillator), dual, in situ Z95.810 CHATO (acute kidney injury) N17.9 Wide-complex tachycardia I47.2 Ventricular dysrhythmia I49.9 NINA on CPAP G47.33; Z99.89 Edema R60.9 Systolic CHF I50.20 Diabetes mellitus E11.9
[2019-05-31 04:44] LABS: Basophils # (auto) 0.03 K/uL (0-0.2); Basophils % (auto) 0.3 %; Eosinophils # (auto) 0.09 K/uL (0-0.5); Eosinophils % (auto) 0.8 %; Hematocrit (blood only) 36.3 % (42-52); Hemoglobin 12.4 g/dL (14.0-18.0); Immature Granulocytes # (auto) 0.16 K/uL (0.00-0.02); Immature Granulocytes % (auto) 1.5 %; Lymphocytes % (auto) 8.4 %; Mean Corpuscular Hemoglobin 29.8 pg (25-34); Mean Corpuscular Hgb Conc 34.2 g/dL (32-36); Mean Corpuscular Volume 87.3 fL (80-100); Mean Platelet Volume 10.6 fL (7.4-10.4); Monocytes # (auto) 1.38 K/uL (0.11-0.59); Monocytes % (auto) 12.9 %; Neutrophils # (auto) 8.12 K/uL (1.4-6.5); Neutrophils % (auto) 76.1 %; Platelet Count 128 K/uL (130-400); Red Blood Count 4.16 M/uL (4.7-6.1); White Blood Count 10.68 K/uL (4.8-10.8)
[2019-05-31] MEDS ORDERED: LIDOCAINE 2% 20 MG/ML 5 ML SYR IV STA (05:06)
[2019-05-31] MEDS ORDERED: LIDOCAINE 2% 20 MG/ML 5 ML SYR IV ONE (05:08)
[2019-05-31] MEDS ORDERED: fentaNYL citrate 100 MCG/2 ML VIAL ONE (05:13)
[2019-05-31] MEDS ORDERED: MIDAZOLAM HCL 1 MG/ML 2ML VIAL ONE ×2 (05:14→05:37)
[2019-05-31] MEDS ORDERED: RAPID SEQUENCE INDUCTION BAG ONE ×2 (05:32→05:42)
--- NOTE | 2019-05-31 06:00 | Pre Anesthesia Assessment ---
Date of Service May 31, 2019 Pre Sedation Assessment Vital Signs Temp Pulse Pulse Resp BP BP Pulse Ox 05/31/19 05:10 174 H 12 96 05/31/19 05:08 171 H 28 H 118/70 98 05/31/19 05:05 170 H 28 H 97 05/31/19 05:00 172 H 22 97 05/31/19 04:55 171 H 26 H 95 05/31/19 04:52 169 H 24 86/66 L 96 05/31/19 04:50 170 H 26 H 96 05/31/19 04:45 169 H 24 98 05/31/19 04:40 171 H 15 97 05/31/19 04:37 171 H 15 108/68 99 05/31/19 04:35 170 H 20 98 05/31/19 04:30 173 H 13 94 05/31/19 04:25 169 H 22 98 05/31/19 04:23 169 H 17 112/89 97 05/31/19 04:20 169 H 32 H 95 05/31/19 04:02 165 H 17 127/83 95 05/31/19 03:46 168 H 27 H 112/76 94 05/31/19 03:36 36.9 C 05/31/19 03:34 163 H 28 H 111/61 93 05/31/19 03:18 157 H 27 H 100/61 92 05/31/19 03:07 163 H 28 H 83/57 L 92 05/31/19 03:02 36.8 C 162 H 26 H 108/57 L 05/31/19 02:56 163 H 27 H 95/62 L 96 05/31/19 02:42 145 H 18 75/64 L 95 05/31/19 02:31 149 H 19 81/59 L 94 05/31/19 02:27 152 H 105/78 05/31/19 02:00 149 H 15 105/78 97 05/31/19 01:31 137 H 18 105/70 95 05/31/19 01:19 148 H 22 104/67 96 05/31/19 01:17 139 H 15 71/60 L 94 05/31/19 01:07 137 H 105/78 96 05/31/19 01:01 147 H 19 84/65 L 96 05/31/19 00:40 134 H 20 103/67 97 05/31/19 00:30 148 H 21 100/66 97 05/31/19 00:25 147 H 21 97 05/31/19 00:21 147 H 16 105/83 96 05/31/19 00:10 147 H 19 98/69 L 97 05/31/19 00:00 145 H 15 108/57 L 97 05/30/19 23:58 146 H 16 94/64 L 97 05/30/19 23:50 144 H 21 73/64 L 97 05/30/19 23:41 143 H 15 80/54 L 96 05/30/19 23:30 131 H 16 95/60 L 95 05/30/19 23:29 150 H 15 88/63 L 92 05/30/19 23:22 152 H 101/65 05/30/19 23:15 150 H 14 101/65 95 05/30/19 23:00 128 H 21 109/82 97 05/30/19 22:51 127 H 14 97/65 L 96 05/30/19 22:45 135 H 26 H 106/66 93 05/30/19 22:31 138 H 23 103/68 97 05/30/19 22:17 137 H 16 86/70 L 97 05/30/19 22:00 140 H 18 113/72 97 05/30/19 21:55 139 H 18 101/74 96 05/30/19 21:45 138 H 19 97/76 L 96 05/30/19 21:42 139 H 19 112/66 95 05/30/19 21:40 139 H 16 125/76 95 05/30/19 21:33 140 H 16 125/76 05/30/19 19:31 36.5 C 67 18 128/66 95 05/30/19 19:20 36.8 C 92 H 18 104/60 95 05/30/19 15:42 36.8 C 65 18 96/54 L 98 05/30/19 14:48 65 05/30/19 10:51 36.7 C 63 22 114/61 97 05/30/19 08:20 36.6 C 63 14 122/67 96 05/30/19 07:18 66 Cardiovascular + tachycardic Respiratory normal respiratory effort, lungs clear to auscultation Pre-Sedation Airway Assessment Smoking Status: Never smoker Hx Sleep Apnea: No Mallampati Class: III ASA: ASA4 NPO Status Date of Last Intake of Fluids: 05/30/19 Date of Last Intake of Solid Food: 05/30/19 Procedure Planning Contraindications for Sedation: none Current Medications Reviewed: Yes Notes The planned sedation has been discussed with the patient. Informed Consent was obtained. I have identified the patient, determined the appropriateness of sedation and have assessed the patient immediately prior to the procedure. Sedation plan reviewed with Dr Prescott of the emergency department, who responded to the need for emergent sedation and possible high risk airways support. Sedation with 4 mg of Verside and 100 mcg of IV Fentanyl , ordered and administered by Dr Alamo. .
--- NOTE | 2019-05-31 06:02 | Cardioversion ---
Date of Service May 31, 2019 Electrical Cardioversion Rpt Electrical Cardioversion Report Patient seen on an emergent basis for persistent wide complex tachycardia, felt to be sustained ventricular tachycardia onset 9 pm on 05/30/2019. Pt had been assessed by Dr Cote and recived repeat IV amiodarone boluses, IV metoprolol and at 3 am I was consulted by phone and recommended transfer to first floor ICU for addition of lidocaine infusion. After 1 hour of lidocaine , wide complex tachycardia at 170 bpm persisted and after review of his case with Mr Rojo by phone I came in to the hospital for bedside assessment and made the determination that cardioversion was indicated. Informed consent for sedation and cardioversion obtained. Patient was sedated with the assistance of Dr Prescott receiving a total of 4 mg of IV Versed and 100 mcg of IV Fentanyl. He then underwent synchronized direct current cardioversion receiving one dose of 200 J of biphasic synchronized energy with successful conversion to sinus rhythm at 71 bpm. EKG reveals normal QTC of 430 ms. Vitals remained stable. Primary Proceduralist: Dr Nazario Sedation supervised and administered by Dr Prescott Hog Slaughterer: Bob Vásquez RN depressed the cardioversion function per Dr Nazario's order while Dr Nazario applied pressure to the electrodes. Complications : None Disposition: Patient to remain in [facility] floor ICU. Plan: Increase oral amiodarone to 400 mg TID. Continue IV amiodarone ant 0.5 mg / min, continue lidocaine at 1 mg /min. Will reassess in a few hours and determine feasibility of discontinuation of IV lidocaine due to concerns of risks toxicity from a mental status standpoint . Pt mentating well at present.
[2019-05-31] MEDS: HEPARIN SOD 5,000 UNIT/0.5 ML VIAL SQ SCH ×2 (06:04→12:47)
--- NOTE | 2019-05-31 06:08 | Emergency Department Note ---
ED Visit Note The planned sedation has been discussed with the patient. Informed Consent was obtained. I have identified the patient, determined the appropriateness of sedation and have assessed the patient immediately prior to the procedure. All medicine(s) and interventions are by my order. . : Fever Qualifiers: Fever type: unspecified Qualified Code(s): R50.9 - Fever, unspecified
--- NOTE | 2019-05-31 06:10 | Emergency Department Note ---
ED Visit Note Procedural Sedation Indication cardioversion Total time: 20 minutes. I performed the sedation Written consent was obtained after the risks and benefits were explained to the patient, including, but not limited to aspiration, allergic reaction, breathing difficulties, cardiac complications, vomiting, pain, event recall, bleeding, an d/or infection. Pre-sedation examination and paperwork completed. The patient was on 100% oxygen via NRB prior to the procedure. Continous end tidal CO2 monitoring, pulse oximetry, and cardiac monitoring were utilized. Suction, airway equipment, medications, respiratory equipment, and appropriate personnel were prepared prior to the initiation of the procedure. A time out was taken. Sedation was achieved utilizing 100mcg of Fentanyl and 4 mg Versed. After I observed the patient had reached the appropriate level of sedation the main procedure was performed without complication. Sedation was discontinued and the monitoring continued. The patient recovered quickly from the effects of the medication without complication or adverse event. . : Fever Qualifiers: Fever type: unspecified Qualified Code(s): R50.9 - Fever, unspecified
[2019-05-31 06:11] LABS: BUN Creatinine Ratio 18.5 (10-20); Blood Urea Nitrogen 37 mg/dl (7-18); Calcium 8.2 mg/dl (8.5-10.1); Carbon Dioxide 26 mmol/L (21-32); Chloride 100 mmol/L (98-107); Creatinine Clr Calc Pharmacy 69.9 ml/min; Est GFR (African American) 42.5; Est GFR (Non-African American) 36.7; Glucose 131 mg/dl (70-99); Magnesium 2.4 mg/dl (1.8-2.4); Phosphorus 2.6 mg/dl (2.5-4.9); Potassium 3.9 mmol/L (3.5-5.1); Sodium 132 mmol/L (136-145); Troponin I < 0.015 ng/ml (0-0.045)
--- NOTE | 2019-05-31 06:13 | Post Anesthesia Assessment ---
Date of Service May 31, 2019 Post Sedation Assessment Vital Signs Temp Pulse Pulse Resp BP BP Pulse Ox 05/31/19 06:03 67 24 99 05/31/19 05:10 174 H 12 96 05/31/19 05:08 171 H 28 H 118/70 98 05/31/19 05:05 170 H 28 H 97 05/31/19 05:00 172 H 22 97 05/31/19 04:55 171 H 26 H 95 05/31/19 04:52 169 H 24 86/66 L 96 05/31/19 04:50 170 H 26 H 96 05/31/19 04:45 169 H 24 98 05/31/19 04:40 171 H 15 97 05/31/19 04:37 171 H 15 108/68 99 05/31/19 04:35 170 H 20 98 05/31/19 04:30 173 H 13 94 05/31/19 04:25 169 H 22 98 05/31/19 04:23 169 H 17 112/89 97 05/31/19 04:20 169 H 32 H 95 05/31/19 04:02 165 H 17 127/83 95 05/31/19 03:46 168 H 27 H 112/76 94 05/31/19 03:36 36.9 C 05/31/19 03:34 163 H 28 H 111/61 93 05/31/19 03:18 157 H 27 H 100/61 92 05/31/19 03:07 163 H 28 H 83/57 L 92 05/31/19 03:02 36.8 C 162 H 26 H 108/57 L 05/31/19 02:56 163 H 27 H 95/62 L 96 05/31/19 02:42 145 H 18 75/64 L 95 05/31/19 02:31 149 H 19 81/59 L 94 05/31/19 02:27 152 H 105/78 05/31/19 02:00 149 H 15 105/78 97 05/31/19 01:31 137 H 18 105/70 95 05/31/19 01:19 148 H 22 104/67 96 05/31/19 01:17 139 H 15 71/60 L 94 05/31/19 01:07 137 H 105/78 96 05/31/19 01:01 147 H 19 84/65 L 96 05/31/19 00:40 134 H 20 103/67 97 05/31/19 00:30 148 H 21 100/66 97 05/31/19 00:25 147 H 21 97 05/31/19 00:21 147 H 16 105/83 96 05/31/19 00:10 147 H 19 98/69 L 97 05/31/19 00:00 145 H 15 108/57 L 97 05/30/19 23:58 146 H 16 94/64 L 97 05/30/19 23:50 144 H 21 73/64 L 97 05/30/19 23:41 143 H 15 80/54 L 96 05/30/19 23:30 131 H 16 95/60 L 95 05/30/19 23:29 150 H 15 88/63 L 92 05/30/19 23:22 152 H 101/65 05/30/19 23:15 150 H 14 101/65 95 05/30/19 23:00 128 H 21 109/82 97 05/30/19 22:51 127 H 14 97/65 L 96 05/30/19 22:45 135 H 26 H 106/66 93 05/30/19 22:31 138 H 23 103/68 97 05/30/19 22:17 137 H 16 86/70 L 97 05/30/19 22:00 140 H 18 113/72 97 05/30/19 21:55 139 H 18 101/74 96 05/30/19 21:45 138 H 19 97/76 L 96 05/30/19 21:42 139 H 19 112/66 95 05/30/19 21:40 139 H 16 125/76 95 05/30/19 21:33 140 H 16 125/76 05/30/19 19:31 36.5 C 67 18 128/66 95 05/30/19 19:20 36.8 C 92 H 18 104/60 95 05/30/19 15:42 36.8 C 65 18 96/54 L 98 05/30/19 14:48 65 05/30/19 10:51 36.7 C 63 22 114/61 97 05/30/19 08:20 36.6 C 63 14 122/67 96 05/30/19 07:18 66 Discharge Sedation Level of Care: Phase I Post Sedation Plan On clinical assessment, the patient appears to have tolerated the sedation without complications. Patient is recovering as anticipated. Patient will continue to be monitored by nursing and may be discharged when sedation discharge criteria are met per below protocol. Upon Completions of procedure up to 15 minutes continue every 5 minute vital signs and the P.A.R. score; then discharge to a Phase I or Fast Track to Phase II per the following guidelines: * Discharge Patient to appropriate Phase II area if PAR is 8 or greater or return to pre- procedure baseline. The post - procedure orders will be as directed. * If PAR score is less than 8 or not return to pre-procedure baseline then patient will follow Phase I monitoring till PAR is reached for Phase II. The Phase I may be done in procedure room or may call to secure a Phase I area. * If naloxone or flumazenil are used for reversal, hold in Phase I for continued monitoring from when last reversal dose was given for a minimum of 60 minutes or longer pending the nurse and/or physician discretion of patient condition before discharge to Phase II. Please call the Sedation Physician to re-evaluate and complete post-note for discharge to Phase II area. Do NOT discharge from procedure sedation or Phase 1 until post- sedation evaluation note is complete by procedure /sedation MD Sedation Discharge Instructions not provided as pt to remain in ICU.
[2019-05-31] MEDS: ACETAMINOPHEN 500 MG TAB PO SCH ×3 (06:17→20:36)
[2019-05-31] MEDS: PHENYLEPHRINE HCL 20 MG in DEXTROSE 5% 500 ML IV SCH ×2 (06:18→11:20)
--- NOTE | 2019-05-31 07:00 | XRay Report ---
XR chest 1V portable CLINICAL HISTORY: 53 years-old Male presenting with SOB. TECHNIQUE: Portable upright AP view of the chest was obtained. COMPARISON: 05/25/2019. FINDINGS: Left subclavian implanted cardiac defibrillator with single lead to the right ventricular apex. Numer ous overlying external leads to grating image quality. Patient body habitus further degrades image qu ality. Overall there is mild to moderate limitations in diagnostic sensitivity the exam. Cardiac silhouette moderately enlarged as on prior exam. Marked pulmonary vascular prominence. Inters titial prominence is also evident. Mild added density in the perihilar regions. No other focal opacit y. A small left pleural effusion may be present. No pneumothorax. Degenerative changes of the thoraci c spine. Upper abdomen normal. IMPRESSION: 1. Stable examination. Cardiomegaly with significant volume overload and congestive change. Mild/dev eloping pulmonary edema is difficult to exclude. Continued follow-up advised. 2. Suspected small left pleural effusion. ACT 112: Negative or not required by law. Electronically signed by: Don Lombardo M.D. 05/31/2019 6:59 AM
[2019-05-31] MEDS ORDERED: VANCOMYCIN TROUGH ONE (07:30)
[2019-05-31] MEDS: POTASSIUM CHLORIDE / WTR 10 MEQ/100 ML PLCT IV SCH ×2 (08:28→08:29)
[2019-05-31] MEDS: INSULIN ASPART 100 UNITS/ML 3 ML PEN SC SCH ×4 (08:33→20:39)
[2019-05-31] MEDS: AMIODARONE 200 MG TAB PO SCH ×3 (09:05→17:16)
[2019-05-31] MEDS: FLUTICASONE/VILANTEROL 200/25MCG 14 PUFFS/INHALER INH SCH (09:06)
[2019-05-31] MEDS: ASPIRIN 81 MG ECTAB PO SCH (09:06)
[2019-05-31] MEDS: LEVOTHYROXINE SODIUM 100 MCG TABLET PO SCH (09:06)
[2019-05-31] MEDS: FLUTICASONE PROPIONATE NA SPR 16 GM BTL SCH ×2 (09:06→20:36)
[2019-05-31] MEDS: GABAPENTIN 300 MG CAP PO SCH ×3 (09:07→20:36)
[2019-05-31] MEDS: SACCHAROMYCES BOULARDII 250 MG CAP PO SCH (09:07)
[2019-05-31] MEDS: LIDOCAINE 5% 1 PATCH TD SCH (09:08)
[2019-05-31] MEDS: DOCUSATE SODIUM/SENNA 50/8.6MG TAB PO SCH (09:09)
--- NOTE | 2019-05-31 09:51 | Cardiology Consultation ---
Date of Consultation May 31, 2019 Assessment & Plan (1) Gram positive sepsis: repeat blood cultures are negative the ICD pocket looks ok (2) Atrial flutter with rapid ventricular response: Continue amiodarone No AC at this juncture (3) Wide-complex tachycardia: S/p cardioversion externally today can stop lidocaine this morning continue loading with amiodarone PO and to give another IV bolus if has more arrhythmias I think we can hold off on mexilitine for now ICD interrogated today and reprogrammed: there is now a VT zone at 390ms (154bpm) detection is for 20 beats and then he will have 3 rounds of ATP before getting a shock x5 The VF zone remains the same at 188bpm getting ATP x1 then ICD shocks (4) ICD (implantable cardioverter-defibrillator), dual, in situ: Device reprogrammed as outlined above History of Present Illness Reason for Consultation: VT Requesting Physician: Mansi Attending Physician: Katharina Flores, History of Present Illness Pt admitted for sepsis and has been having atrial and most recently ventricular arrhythmias not responding to medication and under detection so ICD would not fire. Pt ended up with external cardioversion early this morning by cardiology. He has strep bacteremia on arrival source from his right LE. Fortunately the subsequent cultures have been no growth to date. He had an ICD generator change in Mar and unfortunately 2 weeks afterwards required another surgery due to the ICD lead not having good contact in the header. Pt has fatigue, diaphoresis, weakness, Leg swelling is chronic but worse and +erythemia No SOB, chest pain or palpitations Allergies Allergy/AdvReac Type Severity Reaction Status Date / Time benzonatate AdvReac Intermediate choking, Verified 05/26/19 00:26 gagging Home Medications Home Medications Medication Instructions Recorded Confirmed Type aspirin 81 mg tablet,delayed 81 mg PO QAM 12/21/17 05/26/19 History release atorvastatin 80 mg tablet 80 mg PO QPM 12/21/17 05/26/19 History bumetanide 1 mg tablet 1 mg PO BID 12/21/17 05/26/19 History fluticasone propionate 50 2 sprays INTNAS BID gm 12/21/17 05/26/19 History mcg/actuation nasal spray,suspension levothyroxine 100 mcg capsule 100 mcg PO QAM 12/21/17 05/26/19 History losartan 25 mg tablet 25 mg PO QAM 12/21/17 05/26/19 History magnesium oxide 400 mg PO QAM cap 12/21/17 05/26/19 History metolazone 5 mg tablet 5 mg PO 3XWK tab 12/21/17 05/26/19 History metoprolol succinate 50 mg capsule 50 mg PO QPM 12/21/17 05/26/19 History sprinkle, ext. release 24 hr mometasone-formoterol HFA 200 2 puffs INH BID 12/21/17 05/26/19 History mcg-5 mcg/actuation aerosol inhaler nitroglycerin 0.4 mg sublingual 0.4 mg SL Q5M PRN 12/21/17 05/26/19 History tablet omeprazole 20 mg capsule,delayed 20 mg PO QPM 12/21/17 05/26/19 History release spironolactone 25 mg tablet 25 mg PO QAM 12/21/17 05/26/19 History tramadol 50 mg tablet 50 mg PO Q6H PRN 12/21/17 05/26/19 History amiodarone 100 mg PO QAM 10/20/18 05/26/19 History Trulicity 1.5 mg SQ WK 12/23/18 05/26/19 History ergocalciferol (vitamin D2) 5,000 unit PO WK 04/12/19 05/26/19 History gabapentin 300 mg PO TID 04/12/19 05/26/19 History hyoscyamine sulfate [Levsin] 0.125 mg PO TID 04/12/19 05/26/19 History potassium chloride [Klor-Con M20] 40 meq PO BID 04/12/19 05/26/19 History insulin aspart U-100 [Novolog 0 unit CONTINUOUS SUBCUTANEOUS 05/26/19 05/26/19 History U-100 Insulin aspart] INFUSION CONTINOUS Patient History Medical History Asthma Dulera BID, very rare albuterol inhaler use, "maybe once per year" Cardiac defibrillator in situ [employer], implanted 06/01/12 for low EF; most recent interrogation 11/09/18. Battery reserve adequate, but reaching PRISCILA, and patient to have re-checked in 1 month. H/O 10 discharges in one day 2/2 change in diuretic causing acute electrolyte imbalance and pVT. CKD (chronic kidney disease) stage 3, GFR 30-59 ml/min Baseline Cr 1.6-1.7 Diabetes mellitus with diabetic polyneuropathy Dyslipidemia GERD (gastroesophageal reflux disease) HTN (hypertension) Hx of myocardial infarction Silent [place]. 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 Hx of osteomyelitis Toe, ~3yrs ago. Amputated. Hypothyroid (Chronic) Ischemic cardiomyopathy (Chronic) EF 30-34%, s/p ICD Mass LEFT FOOT Morbid obesity NINA on CPAP Peripheral edema Chronic B/L Ventricular tachycardia Surgical History H/O shoulder surgery History of colonoscopy History of sinus surgery Hx of amputation of lesser toe Hx of tonsillectomy Family History Sister Family history of diabetes mellitus 2 Grandmother (Maternal) Family history of diabetes mellitus Grandfather (Maternal) Family history of diabetes mellitus Other No family history of adverse response to anesthesia Social History Preferred Language: Bengali Communication Ability: Effective 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: No Beliefs That Will Affect Care: None Current Living Situation: Spouse Feels Safe at Home: Yes Safety Concerns: Feels Safe At This Time Smoking Status: Never smoker Second Hand Exposure: Yes (/parents smoke) ; Hx Alcohol Use: Yes Alcohol type: hard liquor Hx Substance Use: No Review of Systems Review of Systems: All systems reviewed & are unremarkable except as noted in HPI & below Physical Exam Physical Exam: Vital signs reviewed aaox3, NAD, diaphoretic NC/AT, EOMI Supple, unable to assess for JVD due to body habitus Nrl S1/S2, No murmur CTA b/l no w/r/r Obese +++ LE edema b/l with +erythema of the right LE Skin: left pectoral incision intact no swelling or erythema no signs of infection no focal deficits normal thought pattern Results & Data Vital Signs (Past 12 Hours) Vital Signs Temp Pulse Pulse Resp BP BP Pulse Ox 05/31/19 07:22 64 21 99 05/31/19 06:25 64 10 L 98 05/31/19 06:22 65 10 L 117/72 98 05/31/19 06:20 65 16 98 05/31/19 06:15 65 6 L 98 05/31/19 06:10 65 14 99 05/31/19 06:06 65 3 L 115/74 98 05/31/19 06:05 64 5 L 98 05/31/19 06:04 65 5 L 113/73 98 05/31/19 06:03 67 24 99 05/31/19 06:02 65 4 L 114/74 98 05/31/19 06:01 65 12 98 05/31/19 06:00 65 22 115/75 98 05/31/19 05:58 66 20 115/74 98 05/31/19 05:56 66 21 120/76 98 05/31/19 05:55 66 14 98 05/31/19 05:54 66 21 126/80 99 05/31/19 05:52 67 13 135/85 100 05/31/19 05:51 67 25 H 99 05/31/19 05:50 68 26 H 132/73 99 05/31/19 05:47 70 27 H 143/80 H 97 05/31/19 05:46 73 22 103/65 98 05/31/19 05:45 173 H 17 100 05/31/19 05:40 175 H 22 99 05/31/19 05:37 175 H 25 H 99/73 L 100 05/31/19 05:35 174 H 21 100 05/31/19 05:30 172 H 17 100 05/31/19 05:25 172 H 7 L 97 05/31/19 05:23 170 H 26 H 101/81 97 05/31/19 05:20 172 H 23 97 05/31/19 05:15 171 H 14 93 05/31/19 05:10 174 H 12 96 05/31/19 05:08 171 H 28 H 118/70 98 05/31/19 05:05 170 H 28 H 97 05/31/19 05:00 172 H 22 97 05/31/19 04:55 171 H 26 H 95 05/31/19 04:52 169 H 24 86/66 L 96 05/31/19 04:50 170 H 26 H 96 05/31/19 04:45 169 H 24 98 05/31/19 04:40 171 H 15 97 05/31/19 04:37 171 H 15 108/68 99 05/31/19 04:35 170 H 20 98 05/31/19 04:30 173 H 13 94 05/31/19 04:25 169 H 22 98 05/31/19 04:23 169 H 17 112/89 97 05/31/19 04:20 169 H 32 H 95 05/31/19 04:02 165 H 17 127/83 95 05/31/19 03:46 168 H 27 H 112/76 94 05/31/19 03:36 36.9 C 05/31/19 03:34 163 H 28 H 111/61 93 05/31/19 03:18 157 H 27 H 100/61 92 05/31/19 03:07 163 H 28 H 83/57 L 92 05/31/19 03:02 36.8 C 162 H 26 H 108/57 L 05/31/19 02:56 163 H 27 H 95/62 L 96 05/31/19 02:42 145 H 18 75/64 L 95 05/31/19 02:31 149 H 19 81/59 L 94 05/31/19 02:27 152 H 105/78 05/31/19 02:00 149 H 15 105/78 97 05/31/19 01:31 137 H 18 105/70 95 05/31/19 01:19 148 H 22 104/67 96 05/31/19 01:17 139 H 15 71/60 L 94 05/31/19 01:07 137 H 105/78 96 05/31/19 01:01 147 H 19 84/65 L 96 05/31/19 00:40 134 H 20 103/67 97 05/31/19 00:30 148 H 21 100/66 97 05/31/19 00:25 147 H 21 97 05/31/19 00:21 147 H 16 105/83 96 05/31/19 00:10 147 H 19 98/69 L 97 05/31/19 00:00 145 H 15 108/57 L 97 05/30/19 23:58 146 H 16 94/64 L 97 05/30/19 23:50 144 H 21 73/64 L 97 05/30/19 23:41 143 H 15 80/54 L 96 05/30/19 23:30 131 H 16 95/60 L 95 05/30/19 23:29 150 H 15 88/63 L 92 05/30/19 23:22 152 H 101/65 05/30/19 23:15 150 H 14 101/65 95 05/30/19 23:00 128 H 21 109/82 97 05/30/19 22:51 127 H 14 97/65 L 96 05/30/19 22:45 135 H 26 H 106/66 93 05/30/19 22:31 138 H 23 103/68 97 05/30/19 22:17 137 H 16 86/70 L 97 05/30/19 22:00 140 H 18 113/72 97 05/30/19 21:55 139 H 18 101/74 96 05/30/19 21:45 138 H 19 97/76 L 96 05/30/19 21:42 139 H 19 112/66 95 05/30/19 21:40 139 H 16 125/76 95 Abnormal Lab Results 05/30/19 05/30/19 05/30/19 11:31 16:19 20:36 WBC RBC Hgb Hct MCV MCH MCHC RDW Std Deviation RDW Coeff of Мария Plt Count MPV Immature Gran % (Auto) Neut % (Auto) Lymph % (Auto) [place] % (Auto) Eos % (Auto) Baso % (Auto) Immature Gran # (Auto) Neut # (Auto) Lymph # (Auto) [place] # (Auto) Eos # (Auto) Baso # (Auto) Sodium Potassium Chloride Carbon Dioxide Anion Gap BUN Creatinine Est Cr Clr Drug Dosing Est GFR ( Amer) Est GFR (Non-Af Amer) BUN/Creatinine Ratio Glucose POC Glucose 105 H 75 89 Calcium Phosphorus Magnesium Troponin I Procalcitonin TSH Nasal Screen MRSA (PCR) 05/30/19 05/31/19 05/31/19 21:51 04:32 04:32 WBC 10.68 RBC 4.16 L Hgb 12.4 L Hct 36.3 L MCV 87.3 MCH 29.8 MCHC 34.2 RDW Std Deviation 51.0 H RDW Coeff of Мария 16.0 H Plt Count 128 L MPV 10.6 H Immature Gran % (Auto) 1.5 Neut % (Auto) 76.1 Lymph % (Auto) 8.4 [place] % (Auto) 12.9 Eos % (Auto) 0.8 Baso % (Auto) 0.3 Immature Gran # (Auto) 0.16 H Neut # (Auto) 8.12 H Lymph # (Auto) 0.90 L [place] # (Auto) 1.38 H Eos # (Auto) 0.09 Baso # (Auto) 0.03 Sodium 134 L 132 L Potassium 3.2 L 3.9 D Chloride 100 100 Carbon Dioxide 26 26 Anion Gap 8.0 6.0 BUN 36 H 37 H Creatinine 2.03 H 1.99 H Est Cr Clr Drug Dosing 68.5 69.9 Est GFR ( Amer) 41.5 42.5 Est GFR (Non-Af Amer) 35.8 36.7 BUN/Creatinine Ratio 17.7 18.5 Glucose 91 131 H POC Glucose Calcium 8.4 L 8.2 L Phosphorus 2.6 Magnesium 1.9 2.4 Troponin I < 0.015 Procalcitonin TSH Nasal Screen MRSA (PCR) 05/31/19 05/31/19 05/31/19 04:32 04:32 08:32 WBC RBC Hgb Hct MCV MCH MCHC RDW Std Deviation RDW Coeff of Мария Plt Count MPV Immature Gran % (Auto) Neut % (Auto) Lymph % (Auto) [place] % (Auto) Eos % (Auto) Baso % (Auto) Immature Gran # (Auto) Neut # (Auto) Lymph # (Auto) [place] # (Auto) Eos # (Auto) Baso # (Auto) Sodium Potassium Chloride Carbon Dioxide Anion Gap BUN Creatinine Est Cr Clr Drug Dosing Est GFR ( Amer) Est GFR (Non-Af Amer) BUN/Creatinine Ratio Glucose POC Glucose 94 Calcium Phosphorus Magnesium Troponin I Procalcitonin 3.42 H TSH 1.820 Nasal Screen MRSA (PCR) 05/31/19 Unknown WBC RBC Hgb Hct MCV MCH MCHC RDW Std Deviation RDW Coeff of Мария Plt Count MPV Immature Gran % (Auto) Neut % (Auto) Lymph % (Auto) [place] % (Auto) Eos % (Auto) Baso % (Auto) Immature Gran # (Auto) Neut # (Auto) Lymph # (Auto) [place] # (Auto) Eos # (Auto) Baso # (Auto) Sodium Potassium Chloride Carbon Dioxide Anion Gap BUN Creatinine Est Cr Clr Drug Dosing Est GFR ( Amer) Est GFR (Non-Af Amer) BUN/Creatinine Ratio Glucose POC Glucose Calcium Phosphorus Magnesium Troponin I Procalcitonin TSH Nasal Screen MRSA (PCR) Negative ICD Interrogation today: peroformed by me and interpreted and reprogrammed by me: In review of the arrhythmia log pt had some SVT. He also had VT that responded to a shock I can not comment on the WCT today as it was under the detection rate for the device Today device reprogrammed: VT zone turned on with detections (if he has 20 beats in a row at 154bpm or greater then he will get 3 rounds of ATP followed by ICD shock). A VT monitor zone was set up as well at 146bpm. And wavelet morphology was updated the VF zone remains the same at 188bpm
[2019-05-31] MEDS ORDERED: SPIRONOLACTONE 25 MG TAB PO ONE (10:00)
--- NOTE | 2019-05-31 10:29 | Pharmacy Report ---
Pharmacy Glycemic Short Note 2 - Date of Service May 31, 2019 - Glycemic Short BSG Results (Last 24 hours): 05/30/19 05/30/19 05/30/19 11:31 16:19 20:36 Glucose POC Glucose 105 H 75 89 05/30/19 05/31/19 05/31/19 21:51 04:32 08:32 Glucose 91 131 H POC Glucose 94 OUTPATIENT ANTIDIABETIC REGIMEN: * Patient uses Tandem insulin pump (Novolog U100 insulin used in pump) * Total daily doses reviewed and ranged 160-250units/day (most of which are basal doses): Basal rate 7units/hr (168 units/day) * It appears that his pump delivers mostly basal insulin doses as he admits to rarely bolusing himself and when he does bolus he stated he can only give up to 25units per bolus dose. He does have a CGM that will suspend his basal rate when trending low. * A1c = 9% 11/03/18 ASSESSMENT: 2/4 * BSGs well controlled over last 24 hrs, however many still below goal - will continue to down-titrate doses * Over the last 24 hrs, 162 units of insulin administered - while tolerating a diet - will use this info to guide new insulin doses * Fasting BSG 94 this AM w/ 123 units basal insulin on board 2/3 * BSGs well controlled over last 24 hrs * Patient appears to be more insulin sensitive over the last several days - insulin doses have been tapered down as a result * Fasting BSG 88-92 this AM with 150 units basal insulin on board - will continue to titrate down basal insulin dose * Post-prandial BSGs controlled with current CF/CR - no change PLAN FOR INPATIENT GLYCEMIC CONTROL: * Basal insulin -decrease * Lantus 40 units SQ BID * Bolus insulin - * BSGs ACHS * Goal range: 110-140mg/dL * Correction factor: 12 mg/dL/unit * Nutritional / Prandial insulin per carb ratio of 1 unit per 4 grams CHO consumed PLAN FOR DISCHARGE: * to be determined. it seems that patient has some difficulties with using his insulin pump and may not be bolusing himself appropriately and his pump reservoir may not hold a full 24 hr supply of insulin to fit his needs.
[2019-05-31] MEDS ORDERED: INSULIN GLARGINE 100 UNIT/ML VIAL SC ONE (11:30)
--- NOTE | 2019-05-31 12:01 | Electrocardiogram Report ---
Test Reason : Blood Pressure : / mmHG Vent. Rate : 138 BPM Atrial Rate : 138 BPM P-R Int : 176 ms QRS Dur : 138 ms QT Int : 286 ms P-R-T Axes : 079 100 -63 degrees QTc Int : 433 ms Wide QRS tachycardia Rightward axis Non-specific intra-ventricular conduction block T wave abnormality, consider inferolateral ischemia Abnormal ECG When compared with ECG of 29-MAY-2019 18:45, No significant change Confirmed by Tereso Reyna ([id number]) on 05/31/2019 12:01:03 PM Referred By: REFERRED SELF Confirmed By:Tereso Reyna
--- NOTE | 2019-05-31 12:04 | Electrocardiogram Report ---
Test Reason : Blood Pressure : / mmHG Vent. Rate : 135 BPM Atrial Rate : 135 BPM P-R Int : 184 ms QRS Dur : 140 ms QT Int : 290 ms P-R-T Axes : 091 103 -64 degrees QTc Int : 435 ms Wide QRS tachycardia Rightward axis Left bundle branch block T wave abnormality, consider inferior ischemia Abnormal ECG When compared with ECG of 30-MAY-2019 21:51, (unconfirmed) No significant change was found Confirmed by Tereso Reyna ([id number]) on 05/31/2019 12:03:44 PM Referred By: REFERRED SELF Confirmed By:Tereso Reyna
--- NOTE | 2019-05-31 12:18 | Electrocardiogram Report ---
Test Reason : Blood Pressure : / mmHG Vent. Rate : 170 BPM Atrial Rate : 122 BPM P-R Int : 000 ms QRS Dur : 134 ms QT Int : 316 ms P-R-T Axes : 000 107 -61 degrees QTc Int : 531 ms Wide QRS tachycardia Left bundle branch block Cannot rule out Inferior infarct , age undetermined Anterolateral infarct , age undetermined Abnormal ECG When compared with ECG of 30-MAY-2019 22:47, (unconfirmed) No significant change Confirmed by Tereso Reyna ([id number]) on 05/31/2019 12:18:07 PM Referred By: REFERRED SELF Confirmed By:Tereso Reyna
--- NOTE | 2019-05-31 12:23 | Electrocardiogram Report ---
Test Reason : Blood Pressure : / mmHG Vent. Rate : 172 BPM Atrial Rate : 046 BPM P-R Int : 000 ms QRS Dur : 136 ms QT Int : 318 ms P-R-T Axes : 000 112 -54 degrees QTc Int : 537 ms Wide QRS tachycardia Left bundle branch block Cannot rule out Inferior infarct , age undetermined Anterolateral infarct , age undetermined Abnormal ECG When compared with ECG of 31-MAY-2019 04:54, (unconfirmed) No significant change Confirmed by Tereso Reyna ([id number]) on 05/31/2019 12:23:34 PM Referred By: REFERRED SELF Confirmed By:Tereso Reyna
--- NOTE | 2019-05-31 12:24 | Electrocardiogram Report ---
Test Reason : Blood Pressure : / mmHG Vent. Rate : 071 BPM Atrial Rate : 071 BPM P-R Int : 194 ms QRS Dur : 096 ms QT Int : 396 ms P-R-T Axes : 031 035 072 degrees QTc Int : 430 ms Normal sinus rhythm Septal infarct , age undetermined Abnormal ECG When compared with ECG of 31-MAY-2019 05:23, (unconfirmed) Sinus rhythm has replaced Wide QRS tachycardia Vent. rate has decreased BY 101 BPM Confirmed by Tereso Reyna ([id number]) on 05/31/2019 12:24:11 PM Referred By: REFERRED SELF Confirmed By:Tereso Reyna
--- NOTE | 2019-05-31 12:39 | Cardiology Progress Note ---
Date of Service May 31, 2019 Assessment & Plan (1) Sustained VT (ventricular tachycardia): BP better since Cardioversion. Single chamber AICD interrogated with help of [employer] school admissions representative and Dr Sheehan. VT detection rate reduced from 167 to 154 bpm. Will DC lidocaine Gtt. Continue PO and IV amiodarone. Increase metoprolol to 25 mg QID. (2) Left leg cellulitis: Continue Rocephin Continue SQ heparin for DVT prophylaxis. Subjective Pt reassessed at 12:30 Pm. Feeling well. Resting comfortably and easily aroused. Remains in SR since CV this am without ectopy. Physical Exam Physical Exam: Temp Pulse Resp BP Pulse Ox 37.1 C 66 6 L 139/88 99 05/31/19 08:00 05/31/19 11:05 05/31/19 11:05 05/31/19 10:58 05/31/19 11:05 Constitutional: WD/WN, vitals as above Respiratory: normal respiratory effort, lungs clear to auscultation Cardiovascular: RRR, no murmur, no edema Skin: lower extremity lymphedema R LE erythema Neurologic: PERRL, EOMI, accommodation nl, no face palsy, no dysarthria Results & Data Vital Signs (Past 12 Hours) Vital Signs Temp Pulse Resp BP Pulse Ox 05/31/19 11:05 66 6 L 99 05/31/19 11:00 67 8 L 99 05/31/19 10:58 67 16 139/88 98 05/31/19 10:55 67 24 99 05/31/19 10:50 67 18 99 05/31/19 10:45 67 24 99 05/31/19 10:40 63 19 98 05/31/19 10:35 66 24 98 05/31/19 10:30 68 15 98 05/31/19 10:28 66 28 H 149/89 H 05/31/19 10:25 65 20 05/31/19 10:21 67 23 132/82 05/31/19 10:20 69 16 05/31/19 10:15 66 17 05/31/19 10:10 66 13 98 05/31/19 10:05 64 23 98 05/31/19 10:00 65 27 H 98 05/31/19 09:58 64 12 141/88 H 98 05/31/19 09:55 67 24 99 05/31/19 09:50 64 21 98 05/31/19 09:45 66 17 99 05/31/19 09:40 63 22 98 05/31/19 09:35 65 2 L 99 05/31/19 09:30 63 8 L 98 05/31/19 09:28 65 20 129/77 98 05/31/19 09:25 63 22 98 05/31/19 09:20 64 18 98 05/31/19 09:15 65 13 99 05/31/19 09:10 63 26 H 100 05/31/19 09:05 62 26 H 97 05/31/19 09:00 64 26 H 97 05/31/19 08:58 62 12 134/76 98 05/31/19 08:55 61 15 95 05/31/19 08:50 63 11 L 96 05/31/19 08:45 66 20 96 05/31/19 08:40 63 24 96 05/31/19 08:35 62 22 97 05/31/19 08:30 62 15 99 05/31/19 08:28 64 23 123/70 98 05/31/19 08:25 63 11 L 98 05/31/19 08:20 62 22 98 05/31/19 08:15 65 27 H 98 05/31/19 08:10 64 14 98 05/31/19 08:05 63 24 98 05/31/19 08:00 37.1 C 63 22 98 05/31/19 07:58 62 16 124/70 99 05/31/19 07:55 61 11 L 99 05/31/19 07:50 62 21 99 05/31/19 07:45 63 20 100 05/31/19 07:40 62 22 99 05/31/19 07:22 64 21 99 05/31/19 07:00 66 05/31/19 06:25 64 10 L 98 05/31/19 06:22 65 10 L 117/72 98 05/31/19 06:20 65 16 98 05/31/19 06:15 65 6 L 98 05/31/19 06:10 65 14 99 05/31/19 06:06 65 3 L 115/74 98 05/31/19 06:05 64 5 L 98 05/31/19 06:04 65 5 L 113/73 98 05/31/19 06:03 67 24 99 05/31/19 06:02 65 4 L 114/74 98 05/31/19 06:01 65 12 98 05/31/19 06:00 65 22 115/75 98 05/31/19 05:58 66 20 115/74 98 05/31/19 05:56 66 21 120/76 98 05/31/19 05:55 66 14 98 05/31/19 05:54 66 21 126/80 99 05/31/19 05:52 67 13 135/85 100 05/31/19 05:51 67 25 H 99 05/31/19 05:50 68 26 H 132/73 99 05/31/19 05:47 70 27 H 143/80 H 97 05/31/19 05:46 73 22 103/65 98 05/31/19 05:45 173 H 17 100 05/31/19 05:40 175 H 22 99 05/31/19 05:37 175 H 25 H 99/73 L 100 05/31/19 05:35 174 H 21 100 05/31/19 05:30 172 H 17 100 05/31/19 05:25 172 H 7 L 97 05/31/19 05:23 170 H 26 H 101/81 97 05/31/19 05:20 172 H 23 97 05/31/19 05:15 171 H 14 93 05/31/19 05:10 174 H 12 96 05/31/19 05:08 171 H 28 H 118/70 98 05/31/19 05:05 170 H 28 H 97 05/31/19 05:00 172 H 22 97 05/31/19 04:55 171 H 26 H 95 05/31/19 04:52 169 H 24 86/66 L 96 05/31/19 04:50 170 H 26 H 96 05/31/19 04:45 169 H 24 98 05/31/19 04:40 171 H 15 97 05/31/19 04:37 171 H 15 108/68 99 05/31/19 04:35 170 H 20 98 05/31/19 04:30 173 H 13 94 05/31/19 04:25 169 H 22 98 05/31/19 04:23 169 H 17 112/89 97 05/31/19 04:20 169 H 32 H 95 05/31/19 04:02 165 H 17 127/83 95 05/31/19 03:46 168 H 27 H 112/76 94 05/31/19 03:36 36.9 C 05/31/19 03:34 163 H 28 H 111/61 93 05/31/19 03:18 157 H 27 H 100/61 92 05/31/19 03:07 163 H 28 H 83/57 L 92 05/31/19 03:02 36.8 C 162 H 26 H 108/57 L 05/31/19 02:56 163 H 27 H 95/62 L 96 05/31/19 02:42 145 H 18 75/64 L 95 05/31/19 02:31 149 H 19 81/59 L 94 05/31/19 02:27 152 H 105/78 05/31/19 02:00 149 H 15 105/78 97 05/31/19 01:31 137 H 18 105/70 95 05/31/19 01:19 148 H 22 104/67 96 05/31/19 01:17 139 H 15 71/60 L 94 05/31/19 01:07 137 H 105/78 96 05/31/19 01:01 147 H 19 84/65 L 96 05/31/19 00:40 134 H 20 103/67 97
[2019-05-31] MEDS: METOPROLOL TARTRATE 25 MG TAB PO SCH ×3 (14:08→20:36)
[2019-05-31] MEDS: cefTRIAXone SODIUM 2,000 MG in DEXTROSE 5% 50 ML IV SCH (14:12)
[2019-05-31] MEDS: OXYCODONE HCL IR 5 MG TAB (IMMEDIATE RELEASE) PO PRN ×2 (14:31→19:06)
--- NOTE | 2019-05-31 16:50 | Hospitalist Progress Note ---
Date of Service May 31, 2019 Assessment & Plan (1) Ventricular dysrhythmia: Third episode of ventricular dysrhythmia occurred overnight. Hypokalemia was present as well as left leg cellulitis and known bacteremia. Wide-complex tachycardia occurred overnight unable to be slowed. The lidocaine drip that was started by the general manager utilization management overnight was continued and the patient was cardioverted externally in the ICU under sedation. EP manager utilization management was consulted and recommended continued load with amiodarone p.o. and another IV bolus if the patient has more arrhythmias. Dr. Dumont reprogrammed the patient's device. He was successfully cardioverted to sinus rhythm and remained in sinus rhythm throughout the day. Lidocaine drip was discontinued and he was transferred back to the floor. Continue amiodarone and metoprolol 4 times daily per cardiology. (2) Left leg cellulitis: Continue Rocephin 2 g IV daily per ID recommendations. Improved with improvement in leukocytosis. (3) Septicemia: Resuscitated, continue antibiotics as above. (4) LV dysfunction: Overall positive volume status secondary to resuscitation efforts. Do not feel he is in heart failure at this time, however, Bumex remains on hold. Would consider restarting this as soon as able. (5) Diabetes mellitus: On insulin pump at home which is currently being held. Continue basal bolus insulin. Pharmacy is assisting with day-to-day management. Currently at goal. (6) Hypokalemia: Continue to monitor daily and replace as needed. Notably Bumex is being held. (7) CHATO (acute kidney injury): Acute worsening of chronic CKD 3. Some improvement in creatinine today. Bumex is on hold. (8) NINA on CPAP: Continue CPAP while sleeping and at night. (9) ICD (implantable cardioverter-defibrillator), dual, in situ: Fired once this admission. Settings adjusted as above. (10) DVT prophylaxis: Lovenox Full code Disposition-transfer from ICU to PCU Katharina Flores DO [facility] Hospitalist Subjective Patient appears exhausted after a long night. He is currently in sinus rhythm and off the lidocaine drip and phenylephrine. He is currently in the ICU but stable to transfer back to the floor. White blood cell count has improved. He remains afebrile. Pain in his leg is resolved. He otherwise has no complaints. Review of Systems Review of Systems: All systems reviewed & are unremarkable except as noted in Subjective Physical Exam Physical Exam: CONSTITUTIONAL: obese, vitals as above, generally well- appearing EYES: normal conjunctivae, no scleral icterus ENT: MMM NECK: trachea midline, no lymphadenopathy RESPIRATORY: clear to auscultation bilaterally, no crackles, rales or wheezes, normal respiratory effort CARDIOVASCULAR: regular rate and rhythm, S1 and 2 heard without murmurs, gallops or rubs, no JVD, no peripheral edema GASTROINTESTINAL: soft, nontender, nondistended and protuberant MUSCULOSKELETAL: moving all extremities equally SKIN: warm and dry, left leg with erythema to lower knee. Erythema from proximal thigh is almost resolved. There is a clear line of demarcation at the ankle and cellulitis does not extend into the foot. No open wound is seen and there is no seepage anywhere on the leg. Erythroderma on lower legs bilaterally. NEUROLOGIC: CN 2-12 grossly intact, normal cognition, normal speech, no gross focal deficits. PSYCHIATRIC: alert cooperative and oriented to person, place and time. Results & Data ([facility]) Vital Signs (Past 12 Hours) Vital Signs Temp Pulse Resp BP Pulse Ox 05/31/19 11:05 66 6 L 99 05/31/19 11:00 67 8 L 99 05/31/19 10:58 67 16 139/88 98 05/31/19 10:55 67 24 99 05/31/19 10:50 67 18 99 05/31/19 10:45 67 24 99 05/31/19 10:40 63 19 98 05/31/19 10:35 66 24 98 05/31/19 10:30 68 15 98 05/31/19 10:28 66 28 H 149/89 H 05/31/19 10:25 65 20 05/31/19 10:21 67 23 132/82 05/31/19 10:20 69 16 05/31/19 10:15 66 17 05/31/19 10:10 66 13 98 05/31/19 10:05 64 23 98 05/31/19 10:00 65 27 H 98 05/31/19 09:58 64 12 141/88 H 98 05/31/19 09:55 67 24 99 05/31/19 09:50 64 21 98 05/31/19 09:45 66 17 99 05/31/19 09:40 63 22 98 05/31/19 09:35 65 2 L 99 05/31/19 09:30 63 8 L 98 05/31/19 09:28 65 20 129/77 98 05/31/19 09:25 63 22 98 05/31/19 09:20 64 18 98 05/31/19 09:15 65 13 99 05/31/19 09:10 63 26 H 100 05/31/19 09:05 62 26 H 97 05/31/19 09:00 64 26 H 97 05/31/19 08:58 62 12 134/76 98 05/31/19 08:55 61 15 95 05/31/19 08:50 63 11 L 96 05/31/19 08:45 66 20 96 05/31/19 08:40 63 24 96 05/31/19 08:35 62 22 97 05/31/19 08:30 62 15 99 05/31/19 08:28 64 23 123/70 98 05/31/19 08:25 63 11 L 98 05/31/19 08:20 62 22 98 05/31/19 08:15 65 27 H 98 05/31/19 08:10 64 14 98 05/31/19 08:05 63 24 98 05/31/19 08:00 37.1 C 63 22 98 05/31/19 07:58 62 16 124/70 99 05/31/19 07:55 61 11 L 99 05/31/19 07:50 62 21 99 05/31/19 07:45 63 20 100 05/31/19 07:40 62 22 99 05/31/19 07:22 64 21 99 05/31/19 07:00 66 05/31/19 06:25 64 10 L 98 05/31/19 06:22 65 10 L 117/72 98 05/31/19 06:20 65 16 98 05/31/19 06:15 65 6 L 98 05/31/19 06:10 65 14 99 05/31/19 06:06 65 3 L 115/74 98 05/31/19 06:05 64 5 L 98 05/31/19 06:04 65 5 L 113/73 98 05/31/19 06:03 67 24 99 05/31/19 06:02 65 4 L 114/74 98 05/31/19 06:01 65 12 98 05/31/19 06:00 65 22 115/75 98 05/31/19 05:58 66 20 115/74 98 05/31/19 05:56 66 21 120/76 98 05/31/19 05:55 66 14 98 05/31/19 05:54 66 21 126/80 99 05/31/19 05:52 67 13 135/85 100 05/31/19 05:51 67 25 H 99 05/31/19 05:50 68 26 H 132/73 99 05/31/19 05:47 70 27 H 143/80 H 97 05/31/19 05:46 73 22 103/65 98 05/31/19 05:45 173 H 17 100 05/31/19 05:40 175 H 22 99 05/31/19 05:37 175 H 25 H 99/73 L 100 05/31/19 05:35 174 H 21 100 05/31/19 05:30 172 H 17 100 05/31/19 05:25 172 H 7 L 97 05/31/19 05:23 170 H 26 H 101/81 97 05/31/19 05:20 172 H 23 97 05/31/19 05:15 171 H 14 93 05/31/19 05:10 174 H 12 96 05/31/19 05:08 171 H 28 H 118/70 98 05/31/19 05:05 170 H 28 H 97 05/31/19 05:00 172 H 22 97 05/31/19 04:55 171 H 26 H 95 05/31/19 04:52 169 H 24 86/66 L 96 05/31/19 04:50 170 H 26 H 96 Laboratory Results Short CBC 05/31/19 Range/Units 04:32 WBC 10.68 (4.8-10.8) K/uL Hgb 12.4 L (14.0-18.0) g/dL Hct 36.3 L (42-52) % Plt Count 128 L (130-400) K/uL BMP 05/30/19 05/31/19 21:51 04:32 Sodium 134 L 132 L Potassium 3.2 L 3.9 D Chloride 100 100 Carbon Dioxide 26 26 BUN 36 H 37 H Creatinine 2.03 H 1.99 H Glucose 91 131 H Calcium 8.4 L 8.2 L Cardiac Enzymes 05/31/19 Range/Units 04:32 Troponin I < 0.015 (0-0.045) ng/ml Medications Administered Current Inpatient Medications Acetaminophen (Tylenol) 1,000 mg PO Q8H [facility] Stop: 06/28/19 21:59 Last Admin: 05/31/19 12:49 Dose: 1,000 mg Documented by: Amiodarone HCl (Cordarone) 400 mg PO TIDM MATT Stop: 06/30/19 07:59 Last Admin: 05/31/19 12:47 Dose: 400 mg Documented by: Aspirin (Ecotrin Ectab) 81 mg PO QAM [facility] Stop: 06/25/19 08:59 Last Admin: 05/31/19 09:06 Dose: 81 mg Documented by: Bumetanide (Bumex) 1 mg PO BID17 [facility] Stop: 06/28/19 16:59 Last Admin: 05/30/19 15:34 Dose: 1 mg Documented by: Dextrose (Dextrose 50%) 25 - 50 ml IV UD PRN; Protocol PRN Reason: Hypoglycemia Protocol Stop: 06/28/19 00:29 Enoxaparin Sodium (Lovenox) 40 mg SQ Q12 MATT Stop: 06/30/19 20:59 Fluticasone Propionate (Flonase) 2 sprays NA BID MATT Stop: 06/25/19 08:59 Last Admin: 05/31/19 09:06 Dose: 2 sprays Documented by: Fluticasone/Vilanterol (Breo Ellipta 200/25 Mcg Inh) 1 puffs INH DAILY MATT Stop: 06/25/19 08:59 Last Admin: 05/31/19 09:06 Dose: 1 puffs Documented by: Gabapentin (Neurontin) 300 mg PO TID MATT Stop: 06/27/19 13:59 Last Admin: 05/31/19 12:49 Dose: 300 mg Documented by: Glucagon (Glucagen) 1 mg IM UD PRN; Protocol PRN Reason: Hypoglycemia Protocol Stop: 06/28/19 00:29 Glucose (Glucose 40%) 15 - 30 gm PO UD PRN; Protocol PRN Reason: Hypoglycemia Protocol Stop: 06/28/19 00:29 Glucose (Dex4 Glucose) 4 - 8 tabs PO UD PRN; Protocol PRN Reason: Hypoglycemia Protocol Stop: 06/28/19 00:29 Hydromorphone HCl (Dilaudid) 0.5 mg IV Q3H PRN PRN Reason: Pain Stop: 06/09/19 22:31 Last Admin: 05/29/19 17:36 Dose: 0.5 mg Documented by: Promethazine HCl 12.5 mg/ (Sodium Chloride) 50.5 mls @ 202 mls/hr IV Q6H PRN PRN Reason: Nausea And Vomiting Stop: 06/25/19 03:21 Amiodarone HCl/Dextrose (Nexterone / D5w) 360 mg in 200 mls @ 16.667 mls/hr IV .Q12H [facility] Stop: 06/29/19 01:14 Last Admin: 05/31/19 12:48 Dose: 0.5 mg/min, 16.7 mls/hr Documented by: Ceftriaxone Sodium 2,000 mg/ (Dextrose) 70 mls @ 100 mls/hr IV DAILY@1500 [facility]; Protocol Stop: 06/09/19 15:14 Last Infusion: 05/31/19 15:18 Dose: Infused Documented by: Insulin Aspart (Novolog Flexpen) 0 units SC ACHS [facility] Stop: 06/26/19 20:59 Last Admin: 05/31/19 12:46 Dose: 3 units Documented by: Insulin Glargine (Lantus) 40 units SC BID [facility]; Protocol Stop: 06/30/19 20:59 Levothyroxine Sodium (Synthroid) 100 mcg PO DAILYBB [facility] Stop: 06/25/19 06:29 Last Admin: 05/31/19 09:06 Dose: 100 mcg Documented by: Lidocaine (Lidoderm 5%) 1 patch TD QAM [facility] Stop: 06/26/19 00:59 Last Admin: 05/31/19 09:08 Dose: 1 patch Documented by: Metoprolol Tartrate (Lopressor) 25 mg PO QID [facility] Stop: 06/30/19 12:59 Last Admin: 05/31/19 14:08 Dose: 25 mg Documented by: Miscellaneous (Remove Lidoderm Patch) 1 ea N/A DAILY@2100 [facility] Stop: 06/26/19 12:59 Last Admin: 05/30/19 19:34 Dose: 1 ea Documented by: Miscellaneous (Carbohydrates For Hypoglycemia) 15 - 30 gm PO UD PRN PRN Reason: Hypoglycemia Treatment Stop: 06/28/19 00:29 Last Admin: 05/29/19 00:15 Dose: 15 gm Documented by: Miscellaneous Information (Consult Glycemic Management Pharmacy) 1 ea N/A UD PRN PRN Reason: Consult Stop: 06/25/19 03:43 Oxycodone HCl (Roxicodone Immediate Rel) 5 - 10 mg PO Q4H PRN PRN Reason: Pain Stop: 06/12/19 19:28 Last Admin: 05/31/19 14:31 Dose: 5 mg Documented by: Pantoprazole Sodium (Protonix) 40 mg PO QPM MATT Stop: 06/25/19 20:59 Last Admin: 05/30/19 19:34 Dose: 40 mg Documented by: Saccharomyces Boulardii (Florastor) 250 mg PO DAILY MATT Stop: 06/27/19 19:44 Last Admin: 05/31/19 09:07 Dose: 250 mg Documented by: Senna/Docusate Sodium (Senokot S) 1 tab PO QAM MATT Stop: 06/30/19 08:59 Last Admin: 05/31/19 09:09 Dose: 1 tab Documented by: Spironolactone (Aldactone) 25 mg PO DAILY [facility] Stop: 07/01/19 08:59 Tramadol HCl (Ultram) 50 mg PO Q6H PRN PRN Reason: pain Stop: 06/25/19 03:21 Last Admin: 05/29/19 17:36 Dose: 50 mg Documented by:
[2019-05-31 16:56] LABS: BUN Creatinine Ratio 19.5 (10-20); Calcium 7.9 mg/dl (8.5-10.1); Creatinine Clr Calc Pharmacy 79.9 ml/min; Est GFR (African American) 47.7; Est GFR (Non-African American) 41.2; Magnesium 2.3 mg/dl (1.8-2.4); Potassium 3.7 mmol/L (3.5-5.1)
[2019-05-31] MEDS ORDERED: POTASSIUM CHLORIDE 20 MEQ TABCR PO ONE (17:45)
[2019-05-31] MEDS ORDERED: fentaNYL citrate 100 MCG/2 ML VIAL IV STA ×2 (20:21)
[2019-05-31] MEDS ORDERED: MIDAZOLAM HCL 5 MG/ML VIAL IV STA ×2 (20:21→20:27)
[2019-05-31] MEDS: PANTOprazole 40 MG TAB PO SCH (20:36)
[2019-05-31] MEDS: ENOXAPARIN INJ 40 MG/0.4 ML SYR SQ SCH (20:36)
[2019-05-31] MEDS: HYDROmorphone INJ 0.5 MG/0.5 ML SYR IV PRN ×2 (20:42→23:38)
[2019-05-31] MEDS ORDERED: INSULIN GLARGINE 100 UNIT/ML VIAL SC SCH (21:00)
[2019-06-01] MEDS: HYDROmorphone INJ 0.5 MG/0.5 ML SYR IV PRN (03:28)
[2019-06-01 05:20] LABS: Hematocrit (blood only) 35.1 % (42-52); Hemoglobin 11.5 g/dL (14.0-18.0); Mean Corpuscular Hemoglobin 28.9 pg (25-34); Mean Corpuscular Hgb Conc 32.8 g/dL (32-36); Mean Corpuscular Volume 88.2 fL (80-100); Mean Platelet Volume 10.8 fL (7.4-10.4); Platelet Count 194 K/uL (130-400); RDW Coefficient of Variation 16.4 % (11.5-14.5); RDW Standard Deviation 53.4 fL (36.4-46.3); Red Blood Count 3.98 M/uL (4.7-6.1); White Blood Count 9.52 K/uL (4.8-10.8)
[2019-06-01] MEDS: LEVOTHYROXINE SODIUM 100 MCG TABLET PO SCH (05:28)
[2019-06-01] MEDS: ACETAMINOPHEN 500 MG TAB PO SCH ×3 (05:28→21:54)
[2019-06-01 05:36] LABS: BUN Creatinine Ratio 20.6 (10-20); Calcium 8.3 mg/dl (8.5-10.1); Est GFR (African American) 42.8; Est GFR (Non-African American) 36.9
--- NOTE | 2019-06-01 08:40 | Hospitalist Progress Note ---
Date of Service June 01, 2019 Assessment & Plan (1) Ventricular dysrhythmia: ventricular dysrhythmia noted during this admission . pt developed Wide-complex tachycardia /sustained Vtach requiring lidocaine drip precipitating factors : electrolyte derangements ( low K ) /infection : right lower extremity cellulitis and known bacteremia( + group B streptococci in blood culture ) appreciate input from Cardiology /EP cardiology and ICU team s/p DC cardioverted externally in the ICU under sedation on 05/31 He was successfully cardioverted to sinus rhythm and remains in sinus rhythm EP mount loader Dr. Dumont reprogrammed the patient's device. . . Continue amiodarone and metoprolol 4 times daily per cardiology. SEPSIS : admitted with Severe sepsis:resolved now admitted with SIRS( fever , marked leukocytosis 33K ) plus acute renal failure ( on CKD stage 3 ) plus lactic acid elevation possible source of infection : rt lower ext cellulitis treated with broad spectrum abx , now on IV rocephin ( for GBS bactereamia ) Rt lower extremity cellulitis : possible source of sepsis extensive erythema , increased warmth , swelling and tenderness on rt lower ext from dorsal of rt foot to rt mid thigh area possible point of entry/infection : open heel crack noted on rt foot on iV rocephin pt reports of increased pain and discomfort on rt lower thigh area recent rt lower ext Doppler on 05/26 : negative for DVT will repeat study today Gram positive bacteremia : group B streptococci on blood cultures : Echo - negative for vegetations but poorly visualized valvular structures without significant stenosis or regurgitation by Doppler. possible source rt lower ext cellulitis : repeat cultures no growth ID following on IV rocephin (2) Diabetes mellitus: On insulin pump at home which is currently being held. Continue basal bolus insulin. Pharmacy involved with glycemic control (3) Hypokalemia: corrected Follow BMP closely given ventricular arrythmia , Goal K > 4 /Mg > 2 (4) CHATO (acute kidney injury): admitted with acute renal failure ( due to severe sepsis ) CKD stage 3 ( baseline cr 1.6-1.7 ) admitted with Cr 2.5 , improved to 1.9 cont to monitor BMP closely given complex medical issues - will need to be on diuretics due to congestive heart failure with systolic dysfunction on Bumex /aldactone Cr 1.9 today will consult nephrology for further recommendation (5) NINA on CPAP: Continue CPAP while sleeping and at night. Morbid obesity : BMI > 50 counselling of diet and lifestyle change (6) ICD (implantable cardioverter-defibrillator), dual, in situ: recent generator change on 03/[address] Dumont ICD firing this admission due to sustained Ventricular tachycardia AICD setting adjusted by ED mount loader CHF WITH DIASTOLIC DYSFUNCTION : ECHO - mostly unchanged from previous study of 2017, mild dilatation of the LV chamber with moderate concentric LVH and the wall segments not akinetic. Slightly reduced LV systolic function, EF 30 to 35. There is a large sized apical, septal and anteroseptal wall motion normality with akinesis of the segments. Poorly visualized valvular structures without significant stenosis or regurgitation by Doppler. S/P AICD on Bumex /Aldactone cont to monitor vol status (7) DVT prophylaxis: very high risk Morbid obesity bilateral lower ext marked lymphedema with rt lower ext cellulitis sc Lovenox CODE status : Full code Disposition- OOB as tolerated PT/OT expected to be discharged home with medically stable Subjective pt reports had an uncomfortable night due to pain on right leg pain was worse last night , mostly to lower medical part of rt thigh no fever or chills felt palpitation for few seconds around 5 am no chest pressure or heaviness no symptom now no complain of SOB , cough , orthopnea, no RINALDI , Review of Systems Review of Systems: All systems reviewed & are unremarkable except as noted in HPI & below Constitutional: no fever and no chills Eyes: no problem reported Ear, Nose, Mouth, Throat: no problem reported Respiratory: no cough, no dyspnea and no dyspnea on exertion Cardiovascular: + palpitations (brief episode ( few seconds ) at 5 am ), + edema and + calf pain; no chest pain, no dyspnea, no dyspnea at rest, no dyspnea on exertion, no orthopnea, no lightheadedness and no syncope Gastrointestinal: no problem reported Genitourinary: no problem reported Musculoskeletal: no back pain and no joint pain Integumentary: + lesions (right heel crack noted , no surrouning erythema ), + erythema (marked swelling and erythema on right lower extremity , extending up to rt middle thigh ) and + problem reported (marked bilateral lower extremity swelling R> L ; erythema , swelling , increased warmth and tenderness on rt lower ext up to mid thigh ) Neurologic: no problem reported Psychiatric: no problem reported Physical Exam Constitutional: WD/WN, vitals as above + morbidly obese; no acute distress Eyes: PERRL, conjunctivae normal, anicteric sclerae ENMT: external ear and nose normal, oropharynx normal Neck: trachea midline, no thyromegaly Respiratory: normal respiratory effort, lungs clear to auscultation Cardiovascular: Rate/Rhythm: regular rate and regular rhythm Extremities: + calf tenderness, + pedal edema (+ 3 edema ) and + edema (extensive bilat lower ext edema with increased warmth and swelling on rt) Gastrointestinal (Abdomen): Inspection/Auscultation: + abdomen distended (obese ) and normal bowel sounds Percussion/Palpation: abdomen soft; abdomen nontender Musculoskeletal: Extremities: + extremities abnormal to inspection (edema , erythema , swelling on rt lower extremity ) Skin: + induration (marked erythema , tenderness on rt lower ext from dorsal foot to thigh ) Neurologic: PERRL, EOMI, accommodation nl, no face palsy, no dysarthria Psychiatric: A+Ox3, euthymic affect Results & Data ([facility]) Vital Signs (Past 12 Hours) Vital Signs Temp Pulse Pulse Resp BP Pulse Ox 06/01/19 04:00 36.6 C 63 21 115/67 96 05/31/19 23:45 36.7 C 59 L 19 142/73 H 95 05/31/19 22:44 60 (1) Diabetes mellitus Diabetes mellitus type: type 2 Diabetes mellitus intermission coordinator insulin use: with chcf use Diabetes mellitus complication status: with kidney complications Diabetes mellitus complication detail: with chronic kidney disease Chronic kidney disease stage: stage 3 (moderate) Qualified Code(s): E11.22 - Type 2 diabetes mellitus with diabetic chronic kidney disease; N18.3 - Chronic kidney disease, stage 3 (moderate); Z79.4 - long-term (current) use of insulin
[2019-06-01] MEDS ORDERED: INSULIN GLARGINE 100 UNIT/ML VIAL SC SCH (09:00)
[2019-06-01] MEDS: INSULIN ASPART 100 UNITS/ML 3 ML PEN SC SCH ×4 (09:14→21:56)
[2019-06-01] MEDS: AMIODARONE 200 MG TAB PO SCH ×3 (09:15→16:25)
[2019-06-01] MEDS: FLUTICASONE/VILANTEROL 200/25MCG 14 PUFFS/INHALER INH SCH (09:16)
[2019-06-01] MEDS: SPIRONOLACTONE 25 MG TAB PO SCH (09:16)
[2019-06-01] MEDS: FLUTICASONE PROPIONATE NA SPR 16 GM BTL SCH ×2 (09:17→21:55)
[2019-06-01] MEDS: SACCHAROMYCES BOULARDII 250 MG CAP PO SCH (09:17)
[2019-06-01] MEDS: ASPIRIN 81 MG ECTAB PO SCH (09:17)
[2019-06-01] MEDS: LIDOCAINE 5% 1 PATCH TD SCH (09:18)
[2019-06-01] MEDS: METOPROLOL TARTRATE 25 MG TAB PO SCH ×4 (09:18→21:54)
[2019-06-01] MEDS: GABAPENTIN 300 MG CAP PO SCH ×3 (09:19→21:54)
[2019-06-01] MEDS: ENOXAPARIN INJ 40 MG/0.4 ML SYR SQ SCH ×2 (09:19→21:54)
[2019-06-01] MEDS: DOCUSATE SODIUM/SENNA 50/8.6MG TAB PO SCH (09:24)
[2019-06-01] MEDS: INSULIN GLARGINE SOLOSTAR 100 UNITS/ML 3 ML PEN SC SCH ×2 (09:25→21:55)
[2019-06-01] MEDS: OXYCODONE HCL IR 5 MG TAB (IMMEDIATE RELEASE) PO PRN (09:38)
--- NOTE | 2019-06-01 10:40 | Pharmacy Report ---
Pharmacy Glycemic Short Note 2 - Date of Service June 01, 2019 - Glycemic Short BSG Results (Last 24 hours): 05/31/19 05/31/19 05/31/19 11:25 16:28 16:32 Glucose 117 H POC Glucose 87 108 H 05/31/19 06/01/19 06/01/19 20:27 04:40 06:11 Glucose 125 H POC Glucose 128 H 124 H 06/01/19 07:24 Glucose POC Glucose 129 H OUTPATIENT ANTIDIABETIC REGIMEN: * Patient uses Tandem insulin pump (Novolog U100 insulin used in pump) * Total daily doses reviewed and ranged 160-250units/day (most of which are basal doses): Basal rate 7units/hr (168 units/day) * It appears that his pump delivers mostly basal insulin doses as he admits to rarely bolusing himself and when he does bolus he stated he can only give up to 25units per bolus dose. He does have a CGM that will suspend his basal rate when trending low. * A1c = 9% 11/03/18 ASSESSMENT: 06/01 * BSGs ranged 87-129 over the last 24 hrs * Patient's insulin requirements much less yesterday vs prior days; only 47 units of SQ insulin administered * Fasting BSG 129 this AM with 40 units of basal insulin on board - will continue to scale back basal insulin doses however I do anticipate this patient's basal needs to increase in the near future given prior insulin requirements * Novolog insulin doses will also be scaled back again today in light of greatly reduced needs in last 24 hrs 2/ * BSGs well controlled over last 24 hrs, however many still below goal - will continue to down-titrate doses * Over the last 24 hrs, 162 units of insulin administered - while tolerating a diet - will use this info to guide new insulin doses * Fasting BSG 94 this AM w/ 123 units basal insulin on board 2/3 * BSGs well controlled over last 24 hrs * Patient appears to be more insulin sensitive over the last several days - insulin doses have been tapered down as a result * Fasting BSG 88-92 this AM with 150 units basal insulin on board - will continue to titrate down basal insulin dose * Post-prandial BSGs controlled with current CF/CR - no change PLAN FOR INPATIENT GLYCEMIC CONTROL: * Basal insulin -decrease * Lantus 30 units SQ BID * Bolus insulin - * BSGs ACHS * Goal range: 110-140mg/dL * Correction factor: 15 mg/dL/unit * Nutritional / Prandial insulin per carb ratio of 1 unit per 5 grams CHO consumed PLAN FOR DISCHARGE: * to be determined. it seems that patient has some difficulties with using his insulin pump and may not be bolusing himself appropriately and his pump reservoir may not hold a full 24 hr supply of insulin to fit his needs.
[2019-06-01] MEDS: AMIODARONE / D5W 360 MG/200 ML BAG IV SCH ×2 (11:18→23:09)
--- NOTE | 2019-06-01 11:40 | Ultrasound Report ---
US venous doppler LE RT HISTORY: 53 years-old Male pain and increased swelling on right acute pain and swelling of the right lower extremity COMPARISON: Doppler venous Doppler study 05/26/2019 TECHNIQUE: Multiple real-time sonographic images of the right lower extremity deep venous structures were obtained assessing grayscale appearance, color and spectral flow FINDINGS: Normal flow, compressibility, phasicity and augmentation of the right lower extremity deep venous str uctures. Limited exam secondary to patient body habitus. IMPRESSION: No sonographic evidence of deep venous thrombosis. ACT 112: Negative or not required by law. The above report was generated using voice recognition software. It may contain grammatical, syntax o r spelling errors. Electronically signed by: Flynn Johnson M.D. 06/01/2019 11:39 AM
--- NOTE | 2019-06-01 14:06 | Cardiology Progress Note ---
Date of Service June 01, 2019 Assessment & Plan (1) Sustained VT (ventricular tachycardia): No additional ectopy nonsustained or sustained ventricular tachycardia since cardioversion a.m. of 05/31/2019. Lidocaine infusion discontinued afternoon of 05/31/2019. Continue low-dose amiodarone intravenously 0.5 mg/min, oral amiodarone 400 mg p.o. 3 times daily, and metoprolol tartrate 25 mg 4 times daily. If he remains free of arrhythmia today, will consider discontinuation of IV amiodarone on 06/02/2019. (2) Left leg cellulitis: Continue IV Rocephin. Initially had 2 blood cultures positive for group B Streptococcus, repeat cultures negative. AICD site without any erythema. (3) Systolic CHF: Creatinine still above typical baseline at 1.98. We will continue to hold Bumex for now. Likely need to consider a initiating on 06/02/2019. (4) CHATO (acute kidney injury): As noted above. DVT prophylaxis: Subcutaneous Lovenox. Subjective Patient feeling improved today. Denies subjective fevers and chills. Review of Systems Review of Systems: All systems reviewed & are unremarkable except as noted in HPI & below Physical Exam Physical Exam: Temp Pulse Resp BP Pulse Ox 36.7 C 63 18 126/70 98 06/01/19 08:00 06/01/19 12:00 06/01/19 12:00 06/01/19 12:00 06/01/19 12:00 Constitutional: WD/WN, vitals as above Respiratory: normal respiratory effort, lungs clear to auscultation Cardiovascular: RRR, no murmur, no edema Extremities: + edema (2+ Le edema, RLE erythema) Gastrointestinal (Abdomen): normal bowel sounds, soft, nontender, no hepatosplenomegaly Neurologic: PERRL, EOMI, accommodation nl, no face palsy, no dysarthria Results & Data Vital Signs (Past 12 Hours) Vital Signs Temp Pulse Pulse Resp BP Pulse Ox 06/01/19 12:00 63 18 126/70 98 06/01/19 08:00 36.7 C 62 20 130/62 96 06/01/19 07:00 60 06/01/19 04:00 36.6 C 63 21 115/67 96
[2019-06-01] MEDS: cefTRIAXone SODIUM 2,000 MG in DEXTROSE 5% 50 ML IV SCH (16:24)
--- NOTE | 2019-06-01 17:25 | Nephrology Consultation ---
Date of Consultation June 01, 2019 Assessment & Plan (1) CKD (chronic kidney disease) stage 3, GFR 30-59 ml/min: baseline creatinine 1.6-1.8 in [facility] in 2019; remains near/sligthly above OP baseline though did have CHATO on presentation w/ rapid resolution to baseline. given the clinical hx am surprised renal function no worse. not oliguric; no evidence of obstruction or acute gu process on admission imaging; admission ua contaminated and w/ blood, urine but no infection -daily bmp -cont strict I/O -reasonable to continue spironolactone; hold loop diuretic -would not repeat ua unless renal function worsens -continue nephrotoxin avoidance -will follow peripherally Present on Admission?: Yes (2) Sustained VT (ventricular tachycardia): per cardiology and primary service; later could consider additional K sparing diuretics as indicated Present on Admission?: No History of Present Illness Reason for Consultation: CHATO Requesting Physician: Dr Forrester Attending Physician: Arcelia Forrester MD History of Present Illness 53 y/o M whom I'm asked to see for CHATO was admitted last week for severe sepsis and had sustained v tach s/p cardioversion. PMH includes CKD3 w/ baseline creatinine 1.6-1.8, also w/ DM, hypothyroid, HL, HTN, class 3 obesity, ischemic [employer] EF 30% s/p pacer, chronic lymphedema. His sepsis was from streptococcemia v ersus RLE cellulitis. His creatinine was 2.8 on arrival, improved to 1.9 the next day and has ranged from 1.6-20. ever since; he is 2.0 today. he had been on a lidocaine gtt for ventricular arrhythmias but then had a successful cardioversion yesterday. He remaisn on IV amiodarone. VT attributed to sepsis or possibly to low K (tim 3.2). Cardiology following closely. on amio iv currently and rocephin. Allergies Allergy/AdvReac Type Severity Reaction Status Date / Time benzonatate AdvReac Intermediate choking, Verified 05/26/19 00:26 gagging Home Medications Home Medications Medication Instructions Recorded Confirmed Type aspirin 81 mg tablet,delayed 81 mg PO QAM 12/21/17 05/26/19 History release atorvastatin 80 mg tablet 80 mg PO QPM 12/21/17 05/26/19 History bumetanide 1 mg tablet 1 mg PO BID 12/21/17 05/26/19 History fluticasone propionate 50 2 sprays INTNAS BID gm 12/21/17 05/26/19 History mcg/actuation nasal spray,suspension levothyroxine 100 mcg capsule 100 mcg PO QAM 12/21/17 05/26/19 History losartan 25 mg tablet 25 mg PO QAM 12/21/17 05/26/19 History magnesium oxide 400 mg PO QAM cap 12/21/17 05/26/19 History metolazone 5 mg tablet 5 mg PO 3XWK tab 12/21/17 05/26/19 History metoprolol succinate 50 mg capsule 50 mg PO QPM 12/21/17 05/26/19 History sprinkle, ext. release 24 hr mometasone-formoterol HFA 200 2 puffs INH BID 12/21/17 05/26/19 History mcg-5 mcg/actuation aerosol inhaler nitroglycerin 0.4 mg sublingual 0.4 mg SL Q5M PRN 12/21/17 05/26/19 History tablet omeprazole 20 mg capsule,delayed 20 mg PO QPM 12/21/17 05/26/19 History release spironolactone 25 mg tablet 25 mg PO QAM 12/21/17 05/26/19 History tramadol 50 mg tablet 50 mg PO Q6H PRN 12/21/17 05/26/19 History amiodarone 100 mg PO QAM 10/20/18 05/26/19 History Trulicity 1.5 mg SQ WK 12/23/18 05/26/19 History ergocalciferol (vitamin D2) 5,000 unit PO WK 04/12/19 05/26/19 History gabapentin 300 mg PO TID 04/12/19 05/26/19 History hyoscyamine sulfate [Levsin] 0.125 mg PO TID 04/12/19 05/26/19 History potassium chloride [Klor-Con M20] 40 meq PO BID 04/12/19 05/26/19 History insulin aspart U-100 [Novolog 0 unit CONTINUOUS SUBCUTANEOUS 05/26/19 05/26/19 History U-100 Insulin aspart] INFUSION CONTINOUS Patient History Medical History Asthma Dulera BID, very rare albuterol inhaler use, "maybe once per year" Cardiac defibrillator in situ [employer], implanted 06/01/12 for low EF; most recent interrogation 11/09/18. Battery reserve adequate, but reaching PRISCILA, and patient to have re-checked in 1 month. H/O 10 discharges in one day 2/2 change in diuretic causing acute electrolyte imbalance and pVT. CKD (chronic kidney disease) stage 3, GFR 30-59 ml/min Baseline Cr 1.6-1.8 in 2019 Diabetes mellitus with diabetic polyneuropathy Dyslipidemia GERD (gastroesophageal reflux disease) HTN (hypertension) Hx of myocardial infarction [place]. 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 Hx of osteomyelitis Toe, ~3yrs ago. Amputated. Hypothyroid (Chronic) Ischemic cardiomyopathy (Chronic) EF 30-34%, s/p ICD Mass LEFT FOOT Morbid obesity NINA on CPAP Peripheral edema Chronic B/L Ventricular tachycardia Surgical History H/O shoulder surgery History of colonoscopy History of sinus surgery Hx of amputation of lesser toe Hx of tonsillectomy Family History Sister Family history of diabetes mellitus 2 Grandmother (Maternal) Family history of diabetes mellitus Grandfather (Maternal) Family history of diabetes mellitus Other No family history of adverse response to anesthesia Social History Preferred Language: Bahamian Communication Ability: Effective Aquarist Required: No Beliefs That Will Affect Care: None Current Living Situation: Spouse Feels Safe at Home: Yes Safety Concerns: Feels Safe At This Time Smoking Status: Never smoker Second Hand Exposure: Yes (/parents smoke) ; Hx Alcohol Use: Yes Alcohol type: hard liquor Hx Substance Use: No Review of Systems Review of Systems: All systems reviewed & are unremarkable except as noted in HPI & below Constitutional: + body aches, + fatigue, + weakness and + weight gain (off of lasix d/t K issues) Eyes: no worsening vision Ear, Nose, Mouth, Throat: + dry mouth Respiratory: + dyspnea (stable chronic) Cardiovascular: + dyspnea on exertion and + edema (worse than baseline per pt); no chest pain and no palpitations Gastrointestinal: no abdominal pain, no early satiety, no vomiting and no diarrhea/loose stools Genitourinary: no problem reported Musculoskeletal: + swelling, + stiffness and + muscle weakness Integumentary: + rash (RLE, improving) Neurologic: + generalized weakness Physical Exam Constitutional: well developed and well nourished in chair on ra Eyes: EOM intact bilaterally ENMT: Ears: no external ear abnormality Nose: no external nose abnormality Mouth: + dry oral mucous membranes Neck: no nuchal rigidity Respiratory: normal respiratory effort Auscultation: + breath sounds absent (BL bases and most of posterior smith) and + diminished lung sounds Cardiovascular: Rate/Rhythm: regular rate and regular rhythm Extremities: + edema (3+ pedal BLE and RLE ) Gastrointestinal (Abdomen): Inspection/Auscultation: normal bowel sounds Percussion/Palpation: abdomen soft; abdomen nontender Musculoskeletal: Extremities: strength 5/5 throughout Skin: no rashes, warm and dry + erythema (poorly demarcated RLE distal/to knee) Neurologic: harvey, fluent speech, no tremor Psychiatric: A+Ox3, euthymic affect Speech: normal rate/rhythm/volume of speech Genitourinary: no anderson Results & Data Vital Signs (Past 12 Hours) Vital Signs Temp Pulse Pulse Resp BP Pulse Ox 06/01/19 12:00 63 18 126/70 98 06/01/19 08:00 36.7 C 62 20 130/62 96 06/01/19 07:00 60 Laboratory Results 06/01/19 04:40 06/01/19 04:40
[2019-06-01] MEDS: PANTOprazole 40 MG TAB PO SCH (21:54)
[2019-06-02] MEDS: OXYCODONE HCL IR 5 MG TAB (IMMEDIATE RELEASE) PO PRN ×4 (00:10→21:02)
[2019-06-02] MEDS: INSULIN ASPART 100 UNITS/ML 3 ML PEN SC SCH ×5 (01:52→20:46)
[2019-06-02 05:42] LABS: BUN Creatinine Ratio 23.9 (10-20); Calcium 8.7 mg/dl (8.5-10.1); Creatinine Clr Calc Pharmacy 75.1 ml/min; Est GFR (African American) 45.3; Est GFR (Non-African American) 39.1; Magnesium 2.6 mg/dl (1.8-2.4); Potassium 4.4 mmol/L (3.5-5.1)
[2019-06-02] MEDS: ACETAMINOPHEN 500 MG TAB PO SCH ×3 (06:25→22:57)
[2019-06-02] MEDS: LEVOTHYROXINE SODIUM 100 MCG TABLET PO SCH (06:25)
[2019-06-02] MEDS: SACCHAROMYCES BOULARDII 250 MG CAP PO SCH (08:11)
[2019-06-02] MEDS: ASPIRIN 81 MG ECTAB PO SCH (08:11)
[2019-06-02] MEDS: AMIODARONE 200 MG TAB PO SCH ×3 (08:11→18:05)
[2019-06-02] MEDS: SPIRONOLACTONE 25 MG TAB PO SCH (08:11)
[2019-06-02] MEDS: DOCUSATE SODIUM/SENNA 50/8.6MG TAB PO SCH (08:11)
[2019-06-02] MEDS: GABAPENTIN 300 MG CAP PO SCH ×3 (08:11→20:49)
[2019-06-02] MEDS: METOPROLOL TARTRATE 25 MG TAB PO SCH ×4 (08:11→20:48)
[2019-06-02] MEDS: LIDOCAINE 5% 1 PATCH TD SCH (08:12)
[2019-06-02] MEDS: ENOXAPARIN INJ 40 MG/0.4 ML SYR SQ SCH ×2 (08:12→20:48)
[2019-06-02] MEDS: FLUTICASONE PROPIONATE NA SPR 16 GM BTL SCH ×2 (08:12→20:47)
[2019-06-02] MEDS: INSULIN GLARGINE SOLOSTAR 100 UNITS/ML 3 ML PEN SC SCH ×2 (08:12→20:44)
[2019-06-02] MEDS: FLUTICASONE/VILANTEROL 200/25MCG 14 PUFFS/INHALER INH SCH (08:12)
--- NOTE | 2019-06-02 08:49 | Cardiology Progress Note ---
Date of Service June 02, 2019 Assessment & Plan (1) Sustained VT (ventricular tachycardia): Electrolytes stable. Rhythm stable. Discontinue IV amiodarone today, 06/02/2019. Continue oral amiodarone 400 mg 3 times daily. Change metoprolol tartrate to 75 mg twice daily starting this evening. (2) Left leg cellulitis: Continue IV ceftriaxone. I think we need to resume his diuretic therapy as his weight is trending up, and his cellulitis will not improve unless the degree of edema that he has improves. (3) Systolic CHF: Resume cautious diuretic therapy given creatinine of 1.89 with furosemide 20 mg 4 times daily. Continue metoprolol (he is on the tartrate formulation for now to allow ease of titration), spironolactone, he is not on an NEEL or arm due to his renal insufficiency. (4) CHATO (acute kidney injury): Renal function has not worsened off of diuretic therapy. We will resume cautious low-dose furosemide. DVT prophylaxis: He is on Lovenox 40 mg subcu every 12 hours. The dose is a little bit difficult to determine for him given his size and renal insufficiency, but I think this is reasonable for now, pending close follow-up with his renal function. If his renal function deteriorates further, will need to consider transitioning to subcutaneous heparin. Subjective Patient awake and oriented sitting in bedside chair eating his a.m. meal. Denies chest pain, shortness of breath or palpitations. On telemetry, ongoing sinus rhythm is noted without any significant ectopy or recurrence of ventricular arrhythmia since cardioversion performed 05/31/2019. Review of Systems Review of Systems: All systems reviewed & are unremarkable except as noted in HPI & below Physical Exam Physical Exam: Temp Pulse Resp BP Pulse Ox 36.7 C 59 L 15 135/65 97 06/02/19 07:27 06/02/19 03:07 06/02/19 07:27 06/02/19 07:27 06/02/19 07:27 Constitutional: WD/WN, vitals as above Respiratory: Mildly decreased breath sounds the bases Cardiovascular: RRR, no murmur, no edema Gastrointestinal (Abdomen): normal bowel sounds, soft, nontender, no hepatosplenomegaly Skin: 2+ lower extremity edema, right lower extremity edema/lymphedema pattern, with superimposed erythema from cellulitis unchanged. Neurologic: PERRL, EOMI, accommodation nl, no face palsy, no dysarthria Results & Data Vital Signs (Past 12 Hours) Vital Signs Temp Pulse Pulse Resp BP Pulse Ox 06/02/19 07:27 36.7 C 15 135/65 97 06/02/19 03:07 36.4 C L 59 L 15 115/65 97 06/01/19 23:14 36.5 C 55 L 17 110/63 97 06/01/19 23:00 55 L Laboratory Results Comprehensive Metabolic Panel 06/02/19 Range/Units 04:54 Sodium 133 L (136-145) mmol/L Potassium 4.4 (3.5-5.1) mmol/L Chloride 102 (98-107) mmol/L Carbon Dioxide 25 (21-32) mmol/L BUN 45 H (7-18) mg/dl Creatinine 1.89 H (0.6-1.4) mg/dl Glucose 163 H (70-99) mg/dl Calcium 8.7 (8.5-10.1) mg/dl Intake and Output 06/01/19 06/02/19 06/02/19 22:59 06:59 14:59 Intake Total 290 / 1827.728 197.895 / 1827.728 Output Total 600 / 2000 600 / 2000 Balance -310 / -172.272 -402.105 / -172.272 Intake: IV 70 / 462.728 197.895 / 462.728 NEXTERONE / D5W 360 mg In 200 197.895 / 392.728 ml @ 0.5 MG/MIN 16.667 mls/hr IV .Q12H [facility] Rx#:[id number] Rocephin 2,000 mg In D5w 50 ml 70 / 70 @ 100 mls/hr IV DAILY@1500 [facility] Rx#:[id number] Oral 220 / 1365 Output: Urine 600 / 2000 600 / 2000 Other: Weight 184.1 kg
[2019-06-02] MEDS: FUROSEMIDE 20 MG in SYRINGE 0 ML IV SCH ×5 (09:41→21:10)
--- NOTE | 2019-06-02 13:10 | Pharmacy Report ---
Pharmacy Glycemic Short Note 2 - Date of Service June 02, 2019 - Glycemic Short BSG Results (Last 24 hours): 06/01/19 06/01/19 06/02/19 16:14 20:16 01:43 Glucose POC Glucose 194 H 129 H 136 H 06/02/19 06/02/19 06/02/19 04:54 07:09 11:03 Glucose 163 H POC Glucose 148 H 211 H OUTPATIENT ANTIDIABETIC REGIMEN: * Patient uses Tandem insulin pump (Novolog U100 insulin used in pump) * Total daily doses reviewed and ranged 160-250units/day (most of which are basal doses): Basal rate 7units/hr (168 units/day) * It appears that his pump delivers mostly basal insulin doses as he admits to rarely bolusing himself and when he does bolus he stated he can only give up to 25units per bolus dose. He does have a CGM that will suspend his basal rate when trending low. * A1c = 9% 11/03/18 ASSESSMENT: 26 * BSGs did climb thru the day yesterday however returned to goal by HS * Over the last 24 hrs, 114 units of insulin administered * Fasting BSG 149 this AM with 60 units basal on board - will continue the same for next 24 hrs * Post-prandial BSGs elevated pre-dinner yesterday and pre-lunch today, will give slightly more prandial insulin 2/5 * BSGs ranged 87-129 over the last 24 hrs * Patient's insulin requirements much less yesterday vs prior days; only 47 units of SQ insulin administered * Fasting BSG 129 this AM with 40 units of basal insulin on board - will continue to scale back basal insulin doses however I do anticipate this patient's basal needs to increase in the near future given prior insulin requirements * Novolog insulin doses will also be scaled back again today in light of greatly reduced needs in last 24 hrs 2/4 * BSGs well controlled over last 24 hrs, however many still below goal - will continue to down-titrate doses * Over the last 24 hrs, 162 units of insulin administered - while tolerating a diet - will use this info to guide new insulin doses * Fasting BSG 94 this AM w/ 123 units basal insulin on board 2/3 * BSGs well controlled over last 24 hrs * Patient appears to be more insulin sensitive over the last several days - insulin doses have been tapered down as a result * Fasting BSG 88-92 this AM with 150 units basal insulin on board - will continue to titrate down basal insulin dose * Post-prandial BSGs controlled with current CF/CR - no change PLAN FOR INPATIENT GLYCEMIC CONTROL: * Basal insulin -no change * Lantus 30 units SQ BID * Bolus insulin - increase * BSGs ACHS * Goal range: 110-140mg/dL * Correction factor: 12 mg/dL/unit * Nutritional / Prandial insulin per carb ratio of 1 unit per 3.5 grams CHO consumed PLAN FOR DISCHARGE: * to be determined. it seems that patient has some difficulties with using his insulin pump and may not be bolusing himself appropriately and his pump reservoir may not hold a full 24 hr supply of insulin to fit his needs.
[2019-06-02] MEDS ORDERED: POLYETHYLENE (MIRALAX) 17 GM PACK PO PRN (14:58)
--- NOTE | 2019-06-02 14:58 | Hospitalist Progress Note ---
Date of Service June 02, 2019 Assessment & Plan (1) Ventricular dysrhythmia: Resolved, status post successful cardioversion, remains his normal sinus rhythm, IV amiodarone discontinued, patient is transition to p.o. amiodarone 400 mg 3 times daily, Metoprolol tartrate 75 mg twice daily Cardiology following closely, appreciate input ventricular dysrhythmia noted during this admission . pt developed Wide-complex tachycardia /sustained Vtach requiring lidocaine drip precipitating factors : electrolyte derangements ( low K ) /infection : right lower extremity cellulitis and known bacteremia( + group B streptococci in blood culture ) appreciate input from Cardiology /EP cardiology and ICU team s/p DC cardioverted externally in the ICU under sedation on 05/31 He was successfully cardioverted to sinus rhythm and remains in sinus rhythm EP senior estimator Dr. Dumont reprogrammed the patient's device. . . SEPSIS : Resolved, stable vitals, afebrile, normal white count admitted with Severe sepsis:resolved now admitted with SIRS( fever , marked leukocytosis 33K ) plus acute renal failure ( on CKD stage 3 ) plus lactic acid elevation possible source of infection : rt lower ext cellulitis treated with broad spectrum abx , now on IV rocephin ( for GBS bactereamia ) Rt lower extremity cellulitis : possible source of sepsis extensive erythema , increased warmth , swelling and tenderness on rt lower ext from dorsal of rt foot to rt mid thigh area possible point of entry/infection : open heel crack noted on rt foot on iV rocephin pt reports of increased pain and discomfort on rt lower thigh area recent rt lower ext Doppler on 05/26 : negative for DVT Repeat ultrasound on 06/01/2019, negative for DVT Symptomatically improved, Continue antibiotics, Diuretics resumed, Gram positive bacteremia : group B streptococci on blood cultures : Echo - negative for vegetations but poorly visualized valvular structures without significant stenosis or regurgitation by Doppler. possible source rt lower ext cellulitis : repeat cultures no growth ID following on IV rocephin (2) Diabetes mellitus: On insulin pump at home which is currently being held. Continue basal bolus insulin. Pharmacy involved with glycemic control (3) Hypokalemia: corrected Follow BMP closely given ventricular arrythmia , Goal K > 4 /Mg > 2 (4) CHATO (acute kidney injury): admitted with acute renal failure ( due to severe sepsis ) CKD stage 3 ( baseline cr 1.6-1.7 ) admitted with Cr 2.5 , improved to 1.9 cont to monitor BMP closely given complex medical issues - will need to be on diuretics due to congestive heart failure with systolic dysfunction on Bumex /aldactone Cr 1.9 today will consult nephrology for further recommendation (5) NINA on CPAP: Continue CPAP while sleeping and at night. Morbid obesity : BMI > 50 counselling of diet and lifestyle change (6) ICD (implantable cardioverter-defibrillator), dual, in situ: recent generator change on 03/[address] Dumont ICD firing this admission due to sustained Ventricular tachycardia AICD setting adjusted by ED senior estimator CHF WITH DIASTOLIC DYSFUNCTION : ECHO - mostly unchanged from previous study of 2017, mild dilatation of the LV chamber with moderate concentric LVH and the wall segments not akinetic. Slightly reduced LV systolic function, EF 30 to 35. There is a large sized apical, septal and anteroseptal wall motion normality with akinesis of the segments. Poorly visualized valvular structures without significant stenosis or regurgitation by Doppler. S/P AICD on Bumex /Aldactone cont to monitor vol status (7) DVT prophylaxis: very high risk Morbid obesity bilateral lower ext marked lymphedema with rt lower ext cellulitis sc Lovenox CODE status : Full code Disposition- OOB as tolerated PT/OT expected to be discharged home with medically stable Subjective sitting on chair , complaining of food, does not like heart healthy diet, as it does not provide him much choice options Did not had any episode of chest pain shortness of breath palpitation, no dizzy spell Afebrile Left lower extremity pain and discomfort has improved somewhat Nausea vomiting, no abdominal pain, offers no other complaint Review of Systems Review of Systems: As per HPI, all 10 systems reviewed, all other ROS negative Cardiovascular: + palpitations (brief episode ( few seconds ) at 5 am ), + edema and + calf pain; no chest pain, no dyspnea, no dyspnea at rest, no dyspnea on exertion, no orthopnea, no lightheadedness and no syncope Musculoskeletal: RLE pain, rash and edema Integumentary: + lesions (right heel crack noted , no surrouning erythema ), + erythema (marked swelling and erythema on right lower extremity , extending up to rt middle thigh ) and + problem reported (marked bilateral lower extremity swelling R> L ; erythema , swelling , increased warmth and tenderness on rt lower ext up to mid thigh ) Physical Exam Constitutional: WD/WN, vitals as above + morbidly obese; no acute distress Eyes: PERRL, conjunctivae normal, anicteric sclerae ENMT: external ear and nose normal, oropharynx normal Neck: trachea midline, no thyromegaly Respiratory: normal respiratory effort, lungs clear to auscultation Cardiovascular: Rate/Rhythm: regular rate and regular rhythm Extremities: + calf tenderness, + pedal edema (+ 3 edema ) and + edema (extensive bilat lower ext edema with increased warmth and swelling on rt) Gastrointestinal (Abdomen): Inspection/Auscultation: + abdomen distended (obese ) and normal bowel sounds Percussion/Palpation: abdomen soft; abdomen nontender Musculoskeletal: Extremities: + extremities abnormal to inspection (edema , erythema , swelling on rt lower extremity ) Skin: + induration (marked erythema , tenderness on rt lower ext from dorsal foot to thigh ) Neurologic: PERRL, EOMI, accommodation nl, no face palsy, no dysarthria Psychiatric: A+Ox3, euthymic affect Results & Data ([facility]) Vital Signs (Past 12 Hours) Vital Signs Temp Pulse Pulse Resp BP BP Pulse Ox 06/02/19 12:20 36.8 C 95 H 16 109/50 L 98 06/02/19 11:12 36.6 C 60 18 117/61 97 06/02/19 08:00 58 L 06/02/19 07:27 36.7 C 15 135/65 97 06/02/19 07:00 58 L 06/02/19 03:07 36.4 C L 59 L 15 115/65 97 (1) Diabetes mellitus Chronic kidney disease stage: stage 3 (moderate) Diabetes mellitus complication detail: with chronic kidney disease Diabetes mellitus complication status: with kidney complications Diabetes mellitus chcf insulin use: with chcf use Diabetes mellitus type: type 2 Qualified Code(s): E11.22 - Type 2 diabetes mellitus with diabetic chronic kidney disease; N18.3 - Chronic kidney disease, stage 3 (moderate); Z79.4 - detention (current) use of insulin
[2019-06-02] MEDS: cefTRIAXone SODIUM 2,000 MG in DEXTROSE 5% 50 ML IV SCH (15:12)
[2019-06-02] MEDS: PANTOprazole 40 MG TAB PO SCH (20:50)
[2019-06-03] MEDS: INSULIN ASPART 100 UNITS/ML 3 ML PEN SC SCH ×5 (02:35→20:11)
[2019-06-03] MEDS: OXYCODONE HCL IR 5 MG TAB (IMMEDIATE RELEASE) PO PRN ×3 (05:01→20:24)
[2019-06-03] MEDS: LEVOTHYROXINE SODIUM 100 MCG TABLET PO SCH (05:03)
[2019-06-03 06:04] LABS: BUN Creatinine Ratio 24.5 (10-20); Calcium 9.1 mg/dl (8.5-10.1); Creatinine Clr Calc Pharmacy 73.2 ml/min; Est GFR (African American) 43.9; Est GFR (Non-African American) 37.9; Magnesium 2.7 mg/dl (1.8-2.4); Potassium 4.4 mmol/L (3.5-5.1)
[2019-06-03] MEDS: ACETAMINOPHEN 500 MG TAB PO SCH ×3 (06:36→21:59)
--- NOTE | 2019-06-03 08:23 | Internal Medicine Consult Note ---
Date of Consultation June 03, 2019 Assessment & Plan (1) Encounter for rehabilitation evaluation: His medical concerns have improved. I do not see any contraindications with rehab activities. The volume status and appropriate labs will be tracked. Cardiac drugs noted and future adjustments anticipated per cardiology. Completion of the antibiotics can be performed during therapy. When the medical team is ready for discharge, we will be happy to continue his care in the rehab hospital environment. History of Present Illness Reason for Consultation: High Risk Rehab Evaluation Attending Physician: Arcelia Forrester MD History of Present Illness Asked to review case for rehab care. He triggers for several higher risk concerns which has lead to this review. Cellulitis and sepsis with complicating arrhythmia. He continues on IV antibiotics. His arrhythmia is now corrected and he is tolerating the current PO meds. The sepsis associated CHATO has also improved. He is very debilitated secondary to his poor premorbid performance and critical illness myopathy. We talked about additional healing time in the rehab hospital while receiving more robust PT/OT. He is interested. Allergies Allergy/AdvReac Type Severity Reaction Status Date / Time benzonatate AdvReac Intermediate choking, Verified 05/26/19 00:26 gagging Home Medications Home Medications Medication Instructions Recorded Confirmed Type aspirin 81 mg tablet,delayed 81 mg PO QAM 12/21/17 05/26/19 History release atorvastatin 80 mg tablet 80 mg PO QPM 12/21/17 05/26/19 History bumetanide 1 mg tablet 1 mg PO BID 12/21/17 05/26/19 History fluticasone propionate 50 2 sprays INTNAS BID gm 12/21/17 05/26/19 History mcg/actuation nasal spray,suspension levothyroxine 100 mcg capsule 100 mcg PO QAM 12/21/17 05/26/19 History losartan 25 mg tablet 25 mg PO QAM 12/21/17 05/26/19 History magnesium oxide 400 mg PO QAM cap 12/21/17 05/26/19 History metolazone 5 mg tablet 5 mg PO 3XWK tab 12/21/17 05/26/19 History metoprolol succinate 50 mg capsule 50 mg PO QPM 12/21/17 05/26/19 History sprinkle, ext. release 24 hr mometasone-formoterol HFA 200 2 puffs INH BID 12/21/17 05/26/19 History mcg-5 mcg/actuation aerosol inhaler nitroglycerin 0.4 mg sublingual 0.4 mg SL Q5M PRN 12/21/17 05/26/19 History tablet omeprazole 20 mg capsule,delayed 20 mg PO QPM 12/21/17 05/26/19 History release spironolactone 25 mg tablet 25 mg PO QAM 12/21/17 05/26/19 History tramadol 50 mg tablet 50 mg PO Q6H PRN 12/21/17 05/26/19 History amiodarone 100 mg PO QAM 10/20/18 05/26/19 History Trulicity 1.5 mg SQ WK 12/23/18 05/26/19 History ergocalciferol (vitamin D2) 5,000 unit PO WK 04/12/19 05/26/19 History gabapentin 300 mg PO TID 04/12/19 05/26/19 History hyoscyamine sulfate [Levsin] 0.125 mg PO TID 04/12/19 05/26/19 History potassium chloride [Klor-Con M20] 40 meq PO BID 04/12/19 05/26/19 History insulin aspart U-100 [Novolog 0 unit CONTINUOUS SUBCUTANEOUS 05/26/19 05/26/19 History U-100 Insulin aspart] INFUSION CONTINOUS Patient History Medical History Asthma Dulera BID, very rare albuterol inhaler use, "maybe once per year" Cardiac defibrillator in situ [employer], implanted 06/01/12 for low EF; most recent interrogation 11/09/18. Battery reserve adequate, but reaching PRISCILA, and patient to have re-checked in 1 month. H/O 10 discharges in one day 2/2 change in diuretic causing acute electrolyte imbalance and pVT. CKD (chronic kidney disease) stage 3, GFR 30-59 ml/min Baseline Cr 1.6-1.8 in 2019 Diabetes mellitus with diabetic polyneuropathy Dyslipidemia GERD (gastroesophageal reflux disease) HTN (hypertension) Hx of myocardial infarction Silent AR. 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 Hx of osteomyelitis Toe, ~3yrs ago. Amputated. Hypothyroid (Chronic) Ischemic cardiomyopathy (Chronic) EF 30-34%, s/p ICD Mass LEFT FOOT Morbid obesity NINA on CPAP Peripheral edema Chronic B/L Ventricular tachycardia Surgical History H/O shoulder surgery History of colonoscopy History of sinus surgery Hx of amputation of lesser toe Hx of tonsillectomy Family History Sister Family history of diabetes mellitus 2 Grandmother (Maternal) Family history of diabetes mellitus Grandfather (Maternal) Family history of diabetes mellitus Other No family history of adverse response to anesthesia Social History Preferred Language: Barbadian Communication Ability: Effective Cardiovascular Physician Assistant Required: No Beliefs That Will Affect Care: None Current Living Situation: Spouse Feels Safe at Home: Yes Safety Concerns: Feels Safe At This Time Smoking Status: Never smoker Second Hand Exposure: Yes (/parents smoke) ; Hx Alcohol Use: Yes Alcohol type: hard liquor Hx Substance Use: No Review of Systems Review of Systems: No cardiac complaints. His right LE continues to be painful. Physical Exam Physical Exam: afeb now. No distress HEENT--negative Pulmonary--comfortable Cardio--no acute changes noted GI--functional Musculo--no acute changes Derm--Right LE cellulitic changes noted Results & Data Vital Signs (Past 12 Hours) Vital Signs Temp Pulse Pulse Resp BP Pulse Ox 06/03/19 07:35 36.8 C 59 L 18 119/53 L 97 06/03/19 03:18 36.9 C 56 L 19 106/58 L 93 06/02/19 23:13 36.6 C 56 L 19 107/50 L 99 06/02/19 23:00 58 L
[2019-06-03] MEDS: HYDROmorphone INJ 0.5 MG/0.5 ML SYR IV PRN (08:28)
[2019-06-03] MEDS: FUROSEMIDE 20 MG in SYRINGE 0 ML IV SCH ×4 (08:28→20:08)
[2019-06-03] MEDS: GABAPENTIN 300 MG CAP PO SCH ×3 (08:29→20:08)
[2019-06-03] MEDS: AMIODARONE 200 MG TAB PO SCH ×3 (08:29→17:16)
[2019-06-03] MEDS: SACCHAROMYCES BOULARDII 250 MG CAP PO SCH (08:29)
[2019-06-03] MEDS: SPIRONOLACTONE 25 MG TAB PO SCH (08:30)
[2019-06-03] MEDS: FLUTICASONE/VILANTEROL 200/25MCG 14 PUFFS/INHALER INH SCH (08:31)
[2019-06-03] MEDS: ASPIRIN 81 MG ECTAB PO SCH (08:31)
[2019-06-03] MEDS: LIDOCAINE 5% 1 PATCH TD SCH (08:31)
[2019-06-03] MEDS: FLUTICASONE PROPIONATE NA SPR 16 GM BTL SCH ×2 (08:31→20:07)
[2019-06-03] MEDS: METOPROLOL TARTRATE 25 MG TAB PO SCH ×2 (08:32→20:09)
[2019-06-03] MEDS: ENOXAPARIN INJ 40 MG/0.4 ML SYR SQ SCH ×2 (08:33→20:08)
[2019-06-03] MEDS: INSULIN GLARGINE SOLOSTAR 100 UNITS/ML 3 ML PEN SC SCH ×2 (08:34→20:06)
[2019-06-03] MEDS: DOCUSATE SODIUM/SENNA 50/8.6MG TAB PO SCH (08:41)
--- NOTE | 2019-06-03 09:18 | Cardiology Progress Note ---
Date of Service June 03, 2019 Assessment & Plan (1) Sustained VT (ventricular tachycardia): Electrolytes stable. Rhythm stable. Continue oral amiodarone 400 mg 3 times daily. Continue metoprolol tartrate to 75 mg twice daily. (2) Left leg cellulitis: Continue IV ceftriaxone. (3) Systolic CHF: Continue furosemide 20 mg IV QID. (4) CHATO (acute kidney injury): Renal function stable. . DVT prophylaxis: He is on Lovenox 40 mg subcu every 12 hours. The dose is a little bit difficult to determine for him given his size and renal insufficiency, but I think this is reasonable for now, pending close follow-up with his renal function. If his renal function deteriorates further, will need to consider transitioning to subcutaneous heparin. Subjective Feeling well. In good spirits. Urine output increased. Telemetry reveals stable SR. Review of Systems Review of Systems: All systems reviewed & are unremarkable except as noted in HPI & below Physical Exam Physical Exam: Temp Pulse Resp BP Pulse Ox 36.8 C 59 L 18 119/53 L 97 06/03/19 07:35 06/03/19 07:35 06/03/19 07:35 06/03/19 07:35 06/03/19 07:35 Constitutional: WD/WN, vitals as above Respiratory: normal respiratory effort, lungs clear to auscultation Cardiovascular: RRR, no murmur, no edema Extremities: + edema (1-2+ edema, R leg errythema) Neurologic: PERRL, EOMI, accommodation nl, no face palsy, no dysarthria Results & Data Vital Signs (Past 12 Hours) Vital Signs Temp Pulse Pulse Resp BP Pulse Ox 06/03/19 07:35 36.8 C 59 L 18 119/53 L 97 06/03/19 03:18 36.9 C 56 L 19 106/58 L 93 06/02/19 23:13 36.6 C 56 L 19 107/50 L 99 06/02/19 23:00 58 L
--- NOTE | 2019-06-03 13:15 | Pharmacy Report ---
Pharmacy Glycemic Short Note 2 - Date of Service June 03, 2019 - Glycemic Short BSG Results (Last 24 hours): 06/02/19 06/02/19 06/03/19 18:04 20:22 01:55 Glucose POC Glucose 103 H 83 127 H 06/03/19 06/03/19 06/03/19 05:19 07:33 11:30 Glucose 111 H POC Glucose 100 H 201 H OUTPATIENT ANTIDIABETIC REGIMEN: * Patient uses Tandem insulin pump (Novolog U100 insulin used in pump) * Total daily doses reviewed and ranged 160-250units/day (most of which are basal doses): Basal rate 7units/hr (168 units/day) * It appears that his pump delivers mostly basal insulin doses as he admits to rarely bolusing himself and when he does bolus he stated he can only give up to 25units per bolus dose. He does have a CGM that will suspend his basal rate when trending low. * A1c = 9% 11/03/18 ASSESSMENT: 06/03 * BSGs have ranged 83-211 over the last 24 hrs * Fasting BSG again at goal today with 60 units Lantus on board - no change * Post-prandial BSGs dropped quickly yesterday using slightly larger prandial insulin dose. HS BSG as low as 83, will lessen prandial insulin dose again today. It appears he may require more prandial insulin with breakfast only - will continue to monitor post-prandial BSG pattern 06/02 * BSGs did climb thru the day yesterday however returned to goal by HS * Over the last 24 hrs, 114 units of insulin administered * Fasting BSG 149 this AM with 60 units basal on board - will continue the same for next 24 hrs * Post-prandial BSGs elevated pre-dinner yesterday and pre-lunch today, will give slightly more prandial insulin 06/01 * BSGs ranged 87-129 over the last 24 hrs * Patient's insulin requirements much less yesterday vs prior days; only 47 units of SQ insulin administered * Fasting BSG 129 this AM with 40 units of basal insulin on board - will continue to scale back basal insulin doses however I do anticipate this patient's basal needs to increase in the near future given prior insulin requirements * Novolog insulin doses will also be scaled back again today in light of greatly reduced needs in last 24 hrs 2/ * BSGs well controlled over last 24 hrs, however many still below goal - will continue to down-titrate doses * Over the last 24 hrs, 162 units of insulin administered - while tolerating a diet - will use this info to guide new insulin doses * Fasting BSG 94 this AM w/ 123 units basal insulin on board PLAN FOR INPATIENT GLYCEMIC CONTROL: * Basal insulin -no change * Lantus 30 units SQ BID * Bolus insulin - decrease * BSGs ACHS * Goal range: 110-140mg/dL * Correction factor: 12 mg/dL/unit * Nutritional / Prandial insulin per carb ratio of 1 unit per 4 grams CHO consumed PLAN FOR DISCHARGE: * to be determined. it seems that patient has some difficulties with using his insulin pump and may not be bolusing himself appropriately and his pump reservoir may not hold a full 24 hr supply of insulin to fit his needs.
--- NOTE | 2019-06-03 14:56 | Hospitalist Progress Note ---
Date of Service June 03, 2019 Assessment & Plan (1) Ventricular dysrhythmia: status post successful cardioversion, remains his normal sinus rhythm, On the p.o.. amiodarone 400 mg 3 times daily, Metoprolol tartrate 75 mg twice daily Cardiology following closely, appreciate input ventricular dysrhythmia noted during this admission . pt developed Wide-complex tachycardia /sustained Vtach requiring lidocaine drip precipitating factors : electrolyte derangements ( low K ) /infection : right lower extremity cellulitis and known bacteremia( + group B streptococci in blood culture ) appreciate input from Cardiology /EP cardiology and ICU team s/p DC cardioverted externally in the ICU under sedation on 05/31 He was successfully cardioverted to sinus rhythm and remains in sinus rhythm EP pathology specialist Dr. Dumont reprogrammed the patient's device. . . SEPSIS : Resolved, stable vitals, afebrile, normal white count admitted with Severe sepsis:resolved now admitted with SIRS( fever , marked leukocytosis 33K ) plus acute renal failure ( on CKD stage 3 ) plus lactic acid elevation possible source of infection : rt lower ext cellulitis treated with broad spectrum abx , Has been on IV rocephin ( for GBS bactereamia ) / no improvement of right lower extremity cellulitis, will change antibiotic to Zosyn Wound culture sent for right inner thigh area open wounds, will follow report Rt lower extremity cellulitis : possible source of sepsis extensive erythema , increased warmth , swelling and tenderness on rt lower ext Patient continued to have persistent swelling, erythema, worsening of edema with seeping of right lower extremity Stable open wounds noted on right inner thigh area, ordered for Gram stain and culture We will change antibiotic to IV Zosyn for broader coverage Gram positive bacteremia : group B streptococci on blood cultures : Echo - negative for vegetations but poorly visualized valvular structures without significant stenosis or regurgitation by Doppler. possible source rt lower ext cellulitis : repeat cultures no growth ID following Antibiotic changed to IV Rocephin (2) Diabetes mellitus: On insulin pump at home which is currently being held. Continue basal bolus insulin. Pharmacy involved with glycemic control (3) Hypokalemia: corrected Follow BMP closely given ventricular arrythmia , Goal K > 4 /Mg > 2 (4) CHATO (acute kidney injury): admitted with acute renal failure ( due to severe sepsis ) CKD stage 3 ( baseline cr 1.6-1.7 ) admitted with Cr 2.5 , improved to 1.9 cont to monitor BMP closely given complex medical issues - will need to be on diuretics due to congestive heart failure with systolic dysfunction on Bumex /aldactone Creatinine remains stable 1.9 Appreciate nephrology input (5) NINA on CPAP: Continue CPAP while sleeping and at night. Morbid obesity : BMI > 50 counselling of diet and lifestyle change (6) ICD (implantable cardioverter-defibrillator), dual, in situ: recent generator change on 03/[address] Dumont ICD firing this admission due to sustained Ventricular tachycardia AICD setting adjusted by ED pathology specialist CHF WITH DIASTOLIC DYSFUNCTION : ECHO - mostly unchanged from previous study of 2017, mild dilatation of the LV chamber with moderate concentric LVH and the wall segments not akinetic. Slightly reduced LV systolic function, EF 30 to 35. There is a large sized apical, septal and anteroseptal wall motion normality with akinesis of the segments. Poorly visualized valvular structures without significant stenosis or regurgitation by Doppler. S/P AICD on Bumex /Aldactone cont to monitor vol status (7) DVT prophylaxis: very high risk Morbid obesity bilateral lower ext marked lymphedema with rt lower ext cellulitis sc Lovenox CODE status : Full code Disposition- OOB as tolerated PT/OT expected to be discharged home with medically stable updated at bedside Subjective Patient complains of worsening swelling, redness of right lower extremity cellulitis Right lower thigh area started to sleep, open wounds noted Frustrated that There is no improvement of the swelling and erythema present at bedside, No fever or chills, vitals remained stable, no arrhythmia No chest pain, shortness of breath no dyspnea on exertion/Patient is chronically orthopneic for body habitus sleeps on recliner Review of Systems Review of Systems: As per HPI, all 10 systems reviewed, all other ROS negative Cardiovascular: + dyspnea, + orthopnea (Chronic), + edema and + calf pain; no chest pain, no dyspnea at rest, no dyspnea on exertion and no lightheadedness Musculoskeletal: RLE pain, rash and edema Integumentary: + lesions (right heel crack noted , no surrouning erythema ), + erythema (marked swelling and erythema on right lower extremity , extending up to rt middle thigh ) and + problem reported (marked bilateral lower extremity swelling R> L ; erythema , swelling , increased warmth and tenderness on rt lower ext up to mid thigh ) Physical Exam Constitutional: WD/WN, vitals as above + morbidly obese; no acute distress Eyes: PERRL, conjunctivae normal, anicteric sclerae ENMT: external ear and nose normal, oropharynx normal Neck: trachea midline, no thyromegaly Respiratory: normal respiratory effort, lungs clear to auscultation Cardiovascular: Rate/Rhythm: regular rate and regular rhythm Extremities: + calf tenderness, + pedal edema (+ 3 edema ) and + edema (extensive bilat lower ext edema with increased warmth and swelling on rt) Gastrointestinal (Abdomen): Inspection/Auscultation: + abdomen distended (obese ) and normal bowel sounds Percussion/Palpation: abdomen soft; abdomen nontender Musculoskeletal: Extremities: + extremities abnormal to inspection (edema , erythema , swelling on rt lower extremity ) Skin: + induration (marked erythema , tenderness on rt lower ext from dorsal foot to thigh ) Neurologic: PERRL, EOMI, accommodation nl, no face palsy, no dysarthria Psychiatric: A+Ox3, euthymic affect Results & Data ([facility]) Vital Signs (Past 12 Hours) Vital Signs Temp Pulse Resp BP Pulse Ox 06/03/19 11:27 36.6 C 61 18 113/63 97 06/03/19 07:35 36.8 C 59 L 18 119/53 L 97 06/03/19 03:18 36.9 C 56 L 19 106/58 L 93 (1) Diabetes mellitus Chronic kidney disease stage: stage 3 (moderate) Diabetes mellitus complication detail: with chronic kidney disease Diabetes mellitus complication status: with kidney complications Diabetes mellitus chcf insulin use: with ad terminal makeup operator use Diabetes mellitus type: type 2 Qualified Code(s): E11.22 - Type 2 diabetes mellitus with diabetic chronic kidney disease; N18.3 - Chronic kidney disease, stage 3 (moderate); Z79.4 - ad terminal makeup operator (current) use of insulin
[2019-06-03] MEDS: cefTRIAXone SODIUM 2,000 MG in DEXTROSE 5% 50 ML IV SCH (16:12)
[2019-06-03] MEDS ORDERED: PIPERACILL/TAZOBAC CONSULT ACTIVE PRN (18:03)
[2019-06-03] MEDS ORDERED: PIPERACILLIN/TAZOBACTAM 2.25 GM in DEXTROSE 5% 100 ML IV SCH (18:15)
[2019-06-03] MEDS ORDERED: PIPERACILLIN/TAZOBACTAM 4.5 GM in DEXTROSE 5% 100 ML IV ONE (18:15)
[2019-06-03] MEDS: PANTOprazole 40 MG TAB PO SCH (20:10)
[2019-06-03] MEDS: PIPERACILLIN/TAZOBACTAM 4.5 GM in DEXTROSE 5% 100 ML IV SCH (23:59)
[2019-06-03] MEDS: TRAMADOL HCL 50 MG TABLET PO PRN (23:59)
[2019-06-04] MEDS: INSULIN ASPART 100 UNITS/ML 3 ML PEN SC SCH ×4 (02:05→20:04)
[2019-06-04] MEDS: LEVOTHYROXINE SODIUM 100 MCG TABLET PO SCH (05:43)
[2019-06-04] MEDS: ACETAMINOPHEN 500 MG TAB PO SCH ×3 (05:43→21:23)
[2019-06-04 06:37] LABS: BUN Creatinine Ratio 23.7 (10-20); Calcium 9.1 mg/dl (8.5-10.1); Creatinine Clr Calc Pharmacy 69.9 ml/min; Est GFR (African American) 41.5; Est GFR (Non-African American) 35.8; Potassium 4.5 mmol/L (3.5-5.1)
[2019-06-04] MEDS ORDERED: INSULIN ASPART 100 UNITS/ML 3 ML PEN SC SCH (07:30)
[2019-06-04] MEDS: PIPERACILLIN/TAZOBACTAM 4.5 GM in DEXTROSE 5% 100 ML IV SCH (08:07)
[2019-06-04] MEDS: FUROSEMIDE 20 MG in SYRINGE 0 ML IV SCH ×2 (08:10→19:02)
[2019-06-04] MEDS: METOPROLOL TARTRATE 25 MG TAB PO SCH (08:11)
[2019-06-04] MEDS: SACCHAROMYCES BOULARDII 250 MG CAP PO SCH (08:11)
[2019-06-04] MEDS: AMIODARONE 200 MG TAB PO SCH ×3 (08:11→19:02)
[2019-06-04] MEDS: LIDOCAINE 5% 1 PATCH TD SCH (08:13)
[2019-06-04] MEDS: ASPIRIN 81 MG ECTAB PO SCH (08:13)
[2019-06-04] MEDS: GABAPENTIN 300 MG CAP PO SCH ×3 (08:14→19:55)
[2019-06-04] MEDS: SPIRONOLACTONE 25 MG TAB PO SCH (08:14)
[2019-06-04] MEDS: FLUTICASONE/VILANTEROL 200/25MCG 14 PUFFS/INHALER INH SCH (08:14)
[2019-06-04] MEDS: FLUTICASONE PROPIONATE NA SPR 16 GM BTL SCH ×2 (08:15→19:56)
[2019-06-04] MEDS: INSULIN GLARGINE SOLOSTAR 100 UNITS/ML 3 ML PEN SC SCH ×2 (08:15→20:11)
[2019-06-04] MEDS: DOCUSATE SODIUM/SENNA 50/8.6MG TAB PO SCH (08:21)
--- NOTE | 2019-06-04 13:25 | Cardiology Progress Note ---
Date of Service June 04, 2019 Assessment & Plan (1) Sustained VT (ventricular tachycardia): (2) Left leg cellulitis: Rocephin changed to Zosyn. This will mean significantly more IV fluid. I called pharmacy and asked for assistance with concentrating the dose to minimize IVF intake. Increase metoprolol from 75 mg BID to 100 mg BID. Wean down oral amiodarone from 400 mg TID, to 400 mg BID. 3 L of urine outpt noted yesterday. Will change furosemide to 40 mg IV BID. Historically baseline creatinines appears to have been in the range of 1.5 -2 since 2017, with episodes as high as 2.8 mg /dl. Difficult to determine intravascular volume status. Albumin just over 1 week ago was low. Will add albumin to furosemide. Subjective No complaints. R LE still red and swollen. Telemetry reveals SR. Review of Systems Review of Systems: All systems reviewed & are unremarkable except as noted in HPI & below Physical Exam Physical Exam: Temp Pulse Resp BP Pulse Ox 36.4 C L 56 L 14 103/48 L 96 06/04/19 10:51 06/04/19 10:51 06/04/19 10:51 06/04/19 10:51 06/04/19 10:51 Constitutional: WD/WN, vitals as above Respiratory: mildly decreased BS at bases Cardiovascular: RRR, no murmur, no edema Gastrointestinal (Abdomen): normal bowel sounds, soft, nontender, no hepatosplenomegaly Skin: 1-2+ LE edema, LLE errythema Neurologic: patellar DTR's 2+ bilat, sensation intact Results & Data Vital Signs (Past 12 Hours) Vital Signs Temp Pulse Resp BP Pulse Ox 06/04/19 10:51 36.4 C L 56 L 14 103/48 L 96 06/04/19 07:43 36.6 C 63 20 141/60 H 94 06/04/19 04:00 36.6 C 56 L 22 113/62 98 Laboratory Results Comprehensive Metabolic Panel 06/04/19 Range/Units 05:37 Sodium 135 L (136-145) mmol/L Potassium 4.5 (3.5-5.1) mmol/L Chloride 102 (98-107) mmol/L Carbon Dioxide 25 (21-32) mmol/L BUN 48 H (7-18) mg/dl Creatinine 2.03 H (0.6-1.4) mg/dl Glucose 113 H (70-99) mg/dl Calcium 9.1 (8.5-10.1) mg/dl Intake and Output 06/03/19 06/04/19 06/04/19 22:59 06:59 14:59 Intake Total 740 / 1875 360 / 1875 120 / 120 Output Total 1150 / 3425 725 / 3425 Balance -410 / -1550 -365 / -1550 120 / 120 Intake: IV 190 / 310 120 / 310 120 / 120 Zosyn 4.5 gm In D5 100 ml @ 30 120 / 240 120 / 240 120 / 120 mls/hr IV Q8H [facility] Rx#:[id number] Rocephin 2,000 mg In D5w 50 ml 70 / 70 @ 100 mls/hr IV DAILY@1500 [facility] Rx#:[id number] Oral 550 / 1565 240 / 1565 Output: Urine 1150 / 3425 725 / 3425 Other: Weight 183.7 kg
[2019-06-04] MEDS ORDERED: HEPARIN SOD 5,000 UNIT/0.5 ML VIAL SQ SCH (14:00)
--- NOTE | 2019-06-04 14:13 | Hospitalist Progress Note ---
Date of Service June 04, 2019 Assessment & Plan (1) Ventricular dysrhythmia: status post successful cardioversion, remains his normal sinus rhythm, On the p.o.. amiodarone 400 mg 3 times daily Metoprolol tartrate 75 mg twice daily Cardiology following closely, appreciate input-to reduce amiodarone to 400 mg twice daily to limit toxicity L/metoprolol tartrate dose will be increased 200 mg twice daily ventricular dysrhythmia noted during this admission . pt developed Wide-complex tachycardia /sustained Vtach requiring lidocaine drip precipitating factors : electrolyte derangements ( low K ) /infection : right lower extremity cellulitis and known bacteremia( + group B streptococci in blood culture ) appreciate input from Cardiology /EP cardiology and ICU team s/p DC cardioverted externally in the ICU under sedation on 05/31 He was successfully cardioverted to sinus rhythm and remains in sinus rhythm EP change control specialist Dr. Dumont reprogrammed the patient's device. . . SEPSIS : Resolved, stable vitals, afebrile, normal white count admitted with Severe sepsis:resolved now admitted with SIRS( fever , marked leukocytosis 33K ) plus acute renal failure ( on CKD stage 3 ) plus lactic acid elevation possible source of infection : rt lower ext cellulitis treated with broad spectrum abx , Has been on IV rocephin ( for GBS bactereamia ) / no improvement of right lower extremity cellulitis, will change antibiotic to Zosyn Wound culture sent for right inner thigh area open wounds,: Gram stain shows pinpoint growth, no organism seen Rt lower extremity cellulitis : possible source of sepsis extensive erythema , increased warmth , swelling and tenderness on rt lower ext antibiotic to IV Zosyn for broader coverage Patient will need aggressive diuresis to relieve the lower extremity severe swelling or lymphedema adequately treat a cellulitis Appreciate input from cardiology, ordered IV Lasix with albumin Continue to monitor volume status Gram positive bacteremia : group B streptococci on blood cultures : Echo - negative for vegetations but poorly visualized valvular structures without significant stenosis or regurgitation by Doppler. possible source rt lower ext cellulitis : repeat cultures no growth ID following On IV R Zosyn (2) Diabetes mellitus: On insulin pump at home which is currently being held. Continue basal bolus insulin. Pharmacy involved with glycemic control (3) Hypokalemia: corrected Follow BMP closely given ventricular arrythmia , Goal K > 4 /Mg > 2 (4) CHATO (acute kidney injury): admitted with acute renal failure ( due to severe sepsis ) CKD stage 3 ( baseline cr 1.6-1.7 ) admitted with Cr 2.5 , improved to 1.9 cont to monitor BMP closely given complex medical issues - will need to be on diuretics due to congestive heart failure with systolic dysfunction On IV Lasix, added albumin to prevent intravascular volume depletion Monitor BMP, nephrology following (5) NINA on CPAP: Continue CPAP while sleeping and at night. Morbid obesity : BMI > 50 counselling of diet and lifestyle change (6) ICD (implantable cardioverter-defibrillator), dual, in situ: recent generator change on 03/[address] Dumont ICD firing this admission due to sustained Ventricular tachycardia AICD setting adjusted by ED change control specialist CHF WITH DIASTOLIC DYSFUNCTION : ECHO - mostly unchanged from previous study of 2017, mild dilatation of the LV chamber with moderate concentric LVH and the wall segments not akinetic. Slightly reduced LV systolic function, EF 30 to 35. There is a large sized apical, septal and anteroseptal wall motion normality with akinesis of the segments. Poorly visualized valvular structures without significant stenosis or regurgitation by Doppler. S/P AICD on Bumex /Aldactone cont to monitor vol status (7) DVT prophylaxis: very high risk Morbid obesity bilateral lower ext marked lymphedema with rt lower ext cellulitis sc Lovenox CODE status : Full code Disposition- OOB as tolerated PT/OT expected to be discharged home with medically stable updated at bedside Subjective Persisting swelling of right lower extremity, erythema has improved somewhat, patient reports of improvement of tenderness No complaint of chest pain, no shortness of breath no palpitation Review of Systems Review of Systems: As per HPI, all 10 systems reviewed, all other ROS negative Cardiovascular: + orthopnea (Chronic) and + edema; no chest pain, no dyspnea at rest, no dyspnea on exertion and no lightheadedness Musculoskeletal: RLE pain, rash and edema Integumentary: + lesions (right heel crack noted , no surrouning erythema ), + erythema (marked swelling and erythema on right lower extremity , extending up to rt middle thigh ) and + problem reported (marked bilateral lower extremity swelling R> L ; erythema , swelling , increased warmth and tenderness on rt lower ext up to mid thigh ) Physical Exam Constitutional: WD/WN, vitals as above + morbidly obese; no acute distress Eyes: PERRL, conjunctivae normal, anicteric sclerae ENMT: external ear and nose normal, oropharynx normal Neck: trachea midline, no thyromegaly Respiratory: normal respiratory effort, lungs clear to auscultation Cardiovascular: Rate/Rhythm: regular rate and regular rhythm Extremities: + calf tenderness, + pedal edema (+ 3 edema ) and + edema (extensive bilat lower ext edema with increased warmth and swelling on rt) Gastrointestinal (Abdomen): Inspection/Auscultation: + abdomen distended (obese ) and normal bowel sounds Percussion/Palpation: abdomen soft; abdomen nontender Musculoskeletal: Extremities: + extremities abnormal to inspection (edema , erythema , swelling on rt lower extremity ) Skin: + induration (marked erythema , tenderness on rt lower ext from dorsal foot to thigh ) Neurologic: PERRL, EOMI, accommodation nl, no face palsy, no dysarthria Psychiatric: A+Ox3, euthymic affect Results & Data ([facility]) Vital Signs (Past 12 Hours) Vital Signs Temp Pulse Resp BP Pulse Ox 06/04/19 10:51 36.4 C L 56 L 14 103/48 L 96 06/04/19 07:43 36.6 C 63 20 141/60 H 94 06/04/19 04:00 36.6 C 56 L 22 113/62 98 (1) Diabetes mellitus Chronic kidney disease stage: stage 3 (moderate) Diabetes mellitus complication detail: with chronic kidney disease Diabetes mellitus complication status: with kidney complications Diabetes mellitus shelter insulin use: with shelter use Diabetes mellitus type: type 2 Qualified Code(s): E11.22 - Type 2 diabetes mellitus with diabetic chronic kidney disease; N18.3 - Chronic kidney disease, stage 3 (moderate); Z79.4 - [facility] (current) use of insulin
--- NOTE | 2019-06-04 14:21 | Pharmacy Report ---
Pharmacy Glycemic Short Note 2 - Date of Service June 04, 2019 - Glycemic Short BSG Results (Last 24 hours): 06/03/19 06/03/19 06/03/19 16:08 20:03 23:58 Glucose POC Glucose 134 H 90 109 H 06/04/19 06/04/19 06/04/19 02:00 05:37 07:14 Glucose 113 H POC Glucose 169 H 124 H 06/04/19 11:16 Glucose POC Glucose 173 H OUTPATIENT ANTIDIABETIC REGIMEN: * Patient uses Tandem insulin pump (Novolog U100 insulin used in pump) * Total daily doses reviewed and ranged 160-250units/day (most of which are basal doses): Basal rate 7units/hr (168 units/day) * It appears that his pump delivers mostly basal insulin doses as he admits to rarely bolusing himself and when he does bolus he stated he can only give up to 25units per bolus dose. He does have a CGM that will suspend his basal rate when trending low. * A1c = 9% 11/03/18 ASSESSMENT: * Ben received 115 units of insulin yesterday * 60 units of basal * 55 units of bolus * BSG ranged from 90-201 mg/dL * Fasting BSG of 124 mg/dL is at goal - continue current Lantus order * Post prandial BSGs are mostly at goal. Lunchtime BSG tends to be the highest of the day (usually > 200 mg/dL) and HS BSG tends to be below goal. I will tighten carb ratio for breakfast only in attempt to avoid BSG spike at lunchtime. PLAN FOR INPATIENT GLYCEMIC CONTROL: * Basal insulin -no change * Lantus 30 units SQ BID * Bolus insulin - increase at breakfast only * BSGs ACHS * Goal range: 110-140mg/dL Breakfast: * Correction factor: 12 mg/dL/unit * Nutritional / Prandial insulin per carb ratio of 1 unit per 3.5 grams CHO consumed [id number]-[id number]: * Correction factor: 12 mg/dL/unit * Nutritional / Prandial insulin per carb ratio of 1 unit per 4 grams CHO consumed PLAN FOR DISCHARGE: * to be determined. it seems that patient has some difficulties with using his insulin pump and may not be bolusing himself appropriately and his pump reservoir may not hold a full 24 hr supply of insulin to fit his needs.
[2019-06-04] MEDS: ALBUMIN 25% 50 ML with FUROSEMIDE 40 MG IV SCH (16:48)
[2019-06-04] MEDS: PIPERACILLIN/TAZOBACTAM 4.5 GM in DEXTROSE 5% 50 ML IV SCH ×2 (16:49→23:51)
[2019-06-04] MEDS: TRAMADOL HCL 50 MG TABLET PO PRN (18:06)
[2019-06-04] MEDS: PANTOprazole 40 MG TAB PO SCH (19:55)
[2019-06-04] MEDS: METOPROLOL TARTRATE 100 MG TAB PO SCH (19:56)
[2019-06-04] MEDS: OXYCODONE HCL IR 5 MG TAB (IMMEDIATE RELEASE) PO PRN ×2 (20:00→23:51)
[2019-06-04] MEDS: HEPARIN SODIUM (PORCINE) 7,500 UNITS in SYRINGE 0 ML SQ SCH (21:20)
[2019-06-05] MEDS: ACETAMINOPHEN 500 MG TAB PO SCH (05:45)
[2019-06-05] MEDS: HEPARIN SODIUM (PORCINE) 7,500 UNITS in SYRINGE 0 ML SQ SCH ×3 (05:45→20:05)
[2019-06-05] MEDS: OXYCODONE HCL IR 5 MG TAB (IMMEDIATE RELEASE) PO PRN ×4 (05:45→20:01)
[2019-06-05] MEDS: LEVOTHYROXINE SODIUM 100 MCG TABLET PO SCH (05:46)
[2019-06-05 06:37] LABS: Albumin Level 2.6 gm/dl (3.4-5.0); BUN Creatinine Ratio 22.5 (10-20); Bilirubin Direct 0.4 mg/dl (0-0.2); Calcium 8.9 mg/dl (8.5-10.1); Creatinine Clr Calc Pharmacy 69.5 ml/min; Est GFR (African American) 41.3; Est GFR (Non-African American) 35.6; Potassium 4.1 mmol/L (3.5-5.1)
[2019-06-05 06:39] LABS: Bilirubin,Total 0.8 mg/dl (0.2-1); Total Protein 8.8 gm/dl (6.4-8.2)
[2019-06-05] MEDS ORDERED: INSULIN ASPART 100 UNITS/ML 3 ML PEN SC SCH (07:30)
[2019-06-05] MEDS: AMIODARONE 200 MG TAB PO SCH ×2 (07:57→16:29)
[2019-06-05] MEDS: ASPIRIN 81 MG ECTAB PO SCH (07:57)
[2019-06-05] MEDS: METOPROLOL TARTRATE 100 MG TAB PO SCH ×2 (07:57→20:02)
[2019-06-05] MEDS: SACCHAROMYCES BOULARDII 250 MG CAP PO SCH (07:57)
[2019-06-05] MEDS: GABAPENTIN 300 MG CAP PO SCH ×3 (07:58→20:02)
[2019-06-05] MEDS: SPIRONOLACTONE 25 MG TAB PO SCH (07:58)
[2019-06-05] MEDS: LIDOCAINE 5% 1 PATCH TD SCH (07:58)
[2019-06-05] MEDS: FLUTICASONE/VILANTEROL 200/25MCG 14 PUFFS/INHALER INH SCH (07:59)
[2019-06-05] MEDS: FLUTICASONE PROPIONATE NA SPR 16 GM BTL SCH ×2 (07:59→20:01)
[2019-06-05] MEDS: INSULIN GLARGINE SOLOSTAR 100 UNITS/ML 3 ML PEN SC SCH ×2 (08:01→20:03)
[2019-06-05] MEDS: PIPERACILLIN/TAZOBACTAM 4.5 GM in DEXTROSE 5% 50 ML IV SCH ×3 (08:14→23:30)
[2019-06-05] MEDS: DOCUSATE SODIUM/SENNA 50/8.6MG TAB PO SCH (08:15)
[2019-06-05] MEDS: ALBUMIN 25% 50 ML with FUROSEMIDE 40 MG IV SCH ×3 (09:40→16:25)
--- NOTE | 2019-06-05 10:22 | Hospitalist Progress Note ---
Date of Service June 05, 2019 Assessment & Plan (1) Ventricular dysrhythmia: status post successful cardioversion, remains his normal sinus rhythm, On the p.o.. Amiodarone dose adjusted to 400 mg twice daily Metoprolol tartrate 100 mg twice daily ventricular dysrhythmia noted during this admission . pt developed Wide-complex tachycardia /sustained Vtach requiring lidocaine drip precipitating factors : electrolyte derangements ( low K ) /infection : right lower extremity cellulitis and known bacteremia( + group B streptococci in blood culture ) appreciate input from Cardiology /EP cardiology and ICU team s/p DC cardioverted externally in the ICU under sedation on 05/31 He was successfully cardioverted to sinus rhythm and remains in sinus rhythm EP processing technologist Dr. Dumont reprogrammed the patient's device. . . SEPSIS : Resolved, stable vitals, afebrile, normal white count admitted with Severe sepsis:resolved now admitted with SIRS( fever , marked leukocytosis 33K ) plus acute renal failure ( on CKD stage 3 ) plus lactic acid elevation possible source of infection : rt lower ext cellulitis treated with broad spectrum abx , Has been on IV rocephin ( for GBS bactereamia ) / no improvement of right lower extremity cellulitis, hepatic change to IV Zosyn Wound culture sent for right inner thigh area open wounds,: Gram stain shows pinpoint growth, no organism seen Bilateral lower extremity severe edema/lymphedema On IV Lasix 40 mg twice daily with albumin Patient is on negative balance of 2.5 L Rt lower extremity cellulitis : possible source of sepsis extensive erythema , increased warmth , swelling and tenderness on rt lower ext antibiotic to IV Zosyn for broader coverage Patient will need aggressive diuresis to relieve the lower extremity severe s welling or lymphedema adequately treat a cellulitis Appreciate input from cardiology, and is continued with IV Lasix +1 Continue to monitor volume status Gram positive bacteremia : group B streptococci on blood cultures : Echo - negative for vegetations but poorly visualized valvular structures without significant stenosis or regurgitation by Doppler. possible source rt lower ext cellulitis : repeat cultures no growth ID following On IV R Zosyn (2) Diabetes mellitus: On insulin pump at home which is currently being held. Continue basal bolus insulin. Pharmacy involved with glycemic control (3) Hypokalemia: corrected Follow BMP closely given ventricular arrythmia , Goal K > 4 /Mg > 2 (4) CHATO (acute kidney injury): admitted with acute renal failure ( due to severe sepsis ) CKD stage 3 ( baseline cr 1.6-1.7 ) admitted with Cr 2.5 , continue remained stable into cont to monitor BMP closely given complex medical issues - will need to be on diuretics due to congestive heart failure with systolic dysfunction On IV Lasix, added albumin to prevent intravascular volume depletion Monitor BMP, nephrology following (5) NINA on CPAP: Continue CPAP while sleeping and at night. Morbid obesity : BMI > 50 counselling of diet and lifestyle change (6) ICD (implantable cardioverter-defibrillator), dual, in situ: recent generator change on 03/[address] Dumont ICD firing this admission due to sustained Ventricular tachycardia AICD setting adjusted by ED processing technologist CHF WITH DIASTOLIC DYSFUNCTION : ECHO - mostly unchanged from previous study of 2017, mild dilatation of the LV chamber with moderate concentric LVH and the wall segments not akinetic. Slightly reduced LV systolic function, EF 30 to 35. There is a large sized apical, septal and anteroseptal wall motion normality with akinesis of the segments. Poorly visualized valvular structures without significant stenosis or regurgitation by Doppler. S/P AICD Getting IV Lasix with albumin cont to monitor vol status (7) DVT prophylaxis: very high risk Morbid obesity bilateral lower ext marked lymphedema with rt lower ext cellulitis Started on subcu heparin 7500mg 3 times daily-dose adjusted for elevated BMI CODE status : Full code Disposition- OOB as tolerated PT/OT expected to be discharged home with medically stable Subjective Patient reports less tenderness, soreness on right lower extremity Clinically no improvement of persistent right lower extremity swelling, severe edema-noted No fever or chills, sitting on chair, Heart rate read remains in sinus, no arrhythmia, patient denies of any dizzy spell lightheadedness next No shortness of breath Review of Systems Review of Systems: As per HPI, all 10 systems reviewed, all other ROS negative Cardiovascular: + orthopnea (Chronic) and + edema; no chest pain, no dyspnea at rest, no dyspnea on exertion and no lightheadedness Musculoskeletal: RLE pain, rash and edema Integumentary: + lesions (right heel crack noted , no surrouning erythema ), + erythema (marked swelling and erythema on right lower extremity , extending up to rt middle thigh ) and + problem reported (marked bilateral lower extremity swelling R> L ; erythema , swelling , increased warmth and tenderness on rt lower ext up to mid thigh ) Physical Exam Constitutional: WD/WN, vitals as above + morbidly obese; no acute distress Eyes: PERRL, conjunctivae normal, anicteric sclerae ENMT: external ear and nose normal, oropharynx normal Neck: trachea midline, no thyromegaly Respiratory: normal respiratory effort, lungs clear to auscultation Cardiovascular: Rate/Rhythm: regular rate and regular rhythm Extremities: + calf tenderness, + pedal edema (+ 3 edema ) and + edema (extensive bilat lower ext edema with increased warmth and swelling on rt) Gastrointestinal (Abdomen): Inspection/Auscultation: + abdomen distended (obese ) and normal bowel sounds Percussion/Palpation: abdomen soft; abdomen nontender Musculoskeletal: Extremities: + extremities abnormal to inspection (edema , erythema , swelling on rt lower extremity ) Skin: + induration (marked erythema , tenderness on rt lower ext from dorsal foot to thigh ) Neurologic: PERRL, EOMI, accommodation nl, no face palsy, no dysarthria Psychiatric: A+Ox3, euthymic affect Results & Data ([facility]) Vital Signs (Past 12 Hours) Vital Signs Temp Pulse Pulse Resp BP Pulse Ox 06/05/19 07:17 36.5 C 55 L 16 120/60 97 06/05/19 07:00 57 L 06/05/19 03:04 36.4 C L 52 L 20 103/58 L 98 06/04/19 23:03 36.8 C 51 L 20 106/55 L 96 (1) Diabetes mellitus Chronic kidney disease stage: stage 3 (moderate) Diabetes mellitus complicati on detail: with chronic kidney disease Diabetes mellitus complication status: with kidney complications 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
[2019-06-05] MEDS ORDERED: ACETAMINOPHEN 500 MG TAB PO PRN (10:37)
--- NOTE | 2019-06-05 10:49 | Cardiology Progress Note ---
Date of Service June 05, 2019 Assessment & Plan (1) Cellulitis of right leg: Continue Zosyn, day 2. (2) Sustained VT (ventricular tachycardia): Oral amiodarone reduced to 200 mg twice daily. Continue metoprolol tartrate 100 mg twice daily. (3) Systolic CHF: Continue furosemide 40 mg twice daily plus albumin. DVT prophylaxis: Subcutaneous heparin, 7500 units 3 times daily. Subjective Patient comfortable sitting in bed watching [place] [employer]. Telemetry reveals stable sinus bradycardia 56 bpm with no significant ventricular ectopy or sustained arr hythmias. Urine output improved yesterday. Review of Systems Review of Systems: All systems reviewed & are unremarkable except as noted in HPI & below Physical Exam Physical Exam: Temp Pulse Resp BP Pulse Ox 36.5 C 55 L 16 120/60 97 06/05/19 07:17 06/05/19 07:17 06/05/19 07:17 06/05/19 07:17 06/05/19 07:17 Constitutional: WD/WN, vitals as above Respiratory: normal respiratory effort, lungs clear to auscultation Cardiovascular: Rate/Rhythm: regular rate Heart Sounds: normal S1 and normal S2 2+ bilateral lower extremity [place], right a little worse than left with erythema, lymphedema pattern Gastrointestinal (Abdomen): normal bowel sounds, soft, nontender, no hepatosplenomegaly Skin: Right lower extremity erythema Neurologic: PERRL, EOMI, accommodation nl, no face palsy, no dysarthria Results & Data Vital Signs (Past 12 Hours) Vital Signs Temp Pulse Pulse Resp BP Pulse Ox 06/05/19 07:17 36.5 C 55 L 16 120/60 97 06/05/19 07:00 57 L 06/05/19 03:04 36.4 C L 52 L 20 103/58 L 98 06/04/19 23:03 36.8 C 51 L 20 106/55 L 96 Laboratory Results Cardiac Enzymes 06/05/19 Range/Units 05:42 AST 31 (15-37) U/L Comprehensive Metabolic Panel 06/05/19 Range/Units 05:42 Sodium 135 L (136-145) mmol/L Potassium 4.1 (3.5-5.1) mmol/L Chloride 102 (98-107) mmol/L Carbon Dioxide 28 (21-32) mmol/L BUN 46 H (7-18) mg/dl Creatinine 2.04 H (0.6-1.4) mg/dl Glucose 114 H (70-99) mg/dl Calcium 8.9 (8.5-10.1) mg/dl Direct Bilirubin 0.4 H (0-0.2) mg/dl AST 31 (15-37) U/L ALT 48 (12-78) U/L Alkaline Phosphatase 185 H (45-117) U/L Total Protein 8.8 H (6.4-8.2) gm/dl Albumin 2.6 L (3.4-5.0) gm/dl Intake and Output 06/04/19 06/05/19 06/05/19 22:59 06:59 14:59 Intake Total 1044 / 2359 560 / 2359 29.75 / 29.75 Output Total 875 / 2525 800 / 2525 Balance 169 / -166 -240 / -166 29.75 / 29.75 Intake: IV 124 / 314 70 / 314 29.75 / 29.75 Albumin 25% 50 ml @ 54 mls/hr 54 / 54 IV [id number] MATT with Lasix 40 mg Rx#:[id number] Zosyn 4.5 gm In D5w 50 ml @ 17. 70 / 140 70 / 140 29.75 / 29.75 5 mls/hr IV Q8H MATT Rx#: [id number] Oral 920 / 2045 490 / 2045 Output: Urine 875 / 2525 800 / 2525 Other: Weight 182.8 kg
[2019-06-05] MEDS: INSULIN ASPART 100 UNITS/ML 3 ML PEN SC SCH ×3 (11:37→20:04)
[2019-06-05] MEDS ORDERED: metOLazone 2.5 MG TABLET PO ONE (13:46)
--- NOTE | 2019-06-05 13:48 | Communication Note ---
Date of Service: June 05, 2019 Review of historical cardiology notes, reveals that patient has responded well to treatment with metolazone in the past. Will administer a 2.5 mg dose now. Electrolytes and rhythm stable this am.
[2019-06-05] MEDS: PANTOprazole 40 MG TAB PO SCH (20:02)
[2019-06-05] MEDS: HYDROmorphone INJ 0.5 MG/0.5 ML SYR IV PRN (23:30)
[2019-06-06] MEDS: OXYCODONE HCL IR 5 MG TAB (IMMEDIATE RELEASE) PO PRN ×3 (04:56→16:50)
[2019-06-06] MEDS: HEPARIN SODIUM (PORCINE) 7,500 UNITS in SYRINGE 0 ML SQ SCH ×3 (05:37→20:58)
[2019-06-06] MEDS: LEVOTHYROXINE SODIUM 100 MCG TABLET PO SCH (05:37)
[2019-06-06 06:27] LABS: BUN Creatinine Ratio 20.9 (10-20); Calcium 9.1 mg/dl (8.5-10.1); Est GFR (African American) 40.3; Est GFR (Non-African American) 34.8; Potassium 4.2 mmol/L (3.5-5.1)
[2019-06-06] MEDS: PIPERACILLIN/TAZOBACTAM 4.5 GM in DEXTROSE 5% 50 ML IV SCH ×4 (08:35→23:42)
[2019-06-06] MEDS: AMIODARONE 200 MG TAB PO SCH ×2 (08:36→16:55)
[2019-06-06] MEDS: METOPROLOL TARTRATE 100 MG TAB PO SCH ×2 (08:36→20:53)
[2019-06-06] MEDS: ASPIRIN 81 MG ECTAB PO SCH (08:36)
[2019-06-06] MEDS: SPIRONOLACTONE 25 MG TAB PO SCH (08:36)
[2019-06-06] MEDS: GABAPENTIN 300 MG CAP PO SCH ×3 (08:36→20:54)
[2019-06-06] MEDS: LIDOCAINE 5% 1 PATCH TD SCH (08:37)
[2019-06-06] MEDS: INSULIN GLARGINE SOLOSTAR 100 UNITS/ML 3 ML PEN SC SCH ×2 (08:37→20:55)
[2019-06-06] MEDS: FLUTICASONE PROPIONATE NA SPR 16 GM BTL SCH ×2 (08:38→20:52)
[2019-06-06] MEDS: FLUTICASONE/VILANTEROL 200/25MCG 14 PUFFS/INHALER INH SCH (08:38)
[2019-06-06] MEDS: SACCHAROMYCES BOULARDII 250 MG CAP PO SCH (08:38)
[2019-06-06] MEDS: INSULIN ASPART 100 UNITS/ML 3 ML PEN SC SCH ×4 (08:41→20:57)
[2019-06-06] MEDS: DOCUSATE SODIUM/SENNA 50/8.6MG TAB PO SCH (08:44)
[2019-06-06] MEDS: HYDROmorphone INJ 0.5 MG/0.5 ML SYR IV PRN (08:44)
[2019-06-06] MEDS: ALBUMIN 25% 50 ML with FUROSEMIDE 40 MG IV SCH ×2 (08:47→16:56)
--- NOTE | 2019-06-06 10:01 | Nephrology Progress Note ---
Date of Service June 06, 2019 Assessment & Plan (1) CKD (chronic kidney disease) stage 3, GFR 30-59 ml/min: baseline creatinine 1.6-1.8 in [facility] in 2019; remains near/sligthly above OP baseline though did have CHATO on presentation w/ rapid resolution to baseline. given the clinical hx am surprised renal function no worse. not oliguric; no evidence of obstruction or acute gu process on admission imaging; admission ua contaminated and w/ blood, urine but no infection. Patient is edematous. -daily bmp -cont strict I/O -continue spironolactone; -Resume loop diuretic to achieve negative fluid balance -continue nephrotoxin avoidance -will follow peripherally (2) Sustained VT (ventricular tachycardia): Controlled continue management per cardiology and primary service; Admission and Anticipated Discharge Date Admission Date: May 26, 2019 Subjective Patient complains of right leg swelling and pain. no SOB. No vomiting or d iarrhoea. He was net negative 1.5litres with metolazone Review of Systems Review of Systems: All systems reviewed & are unremarkable except as noted in HPI & below Physical Exam Physical Exam: General exam: Appears comfortable, no acute distress HEENT: Pupils are equal and reactive to light Neck: No JVD, neck is supple trachea is midline Respiratory system: Clear breath sounds bilaterally. Gastrointestinal: Abdomen is soft, non distended, non tender, bowel sounds are present CVS: Regular rate and rhythm. No murmurs, rubs or gallops Musculoskeletal: No joint or muscle tenderness Extremities: right leg swollen and erythematous. Neuro: Oriented, no tremors, no focal neurological deficits Skin: No rashes Results & Data ([facility]) Vital Signs (Past 12 Hours) Vital Signs Temp Pulse Pulse Resp BP Pulse Ox 06/06/19 09:48 65 18 129/50 L 93 06/06/19 07:11 36.8 C 58 L 18 139/52 L 95 06/06/19 02:52 37.1 C 59 L 19 123/54 L 97 06/05/19 23:20 36.9 C 56 L 20 107/59 L 93 Laboratory Results 06/06/19 05:40
[2019-06-06] MEDS ORDERED: metOLazone 5 MG TABLET PO ONE (10:08)
--- NOTE | 2019-06-06 10:13 | Cardiology Progress Note ---
Date of Service June 06, 2019 Assessment & Plan (1) Cellulitis of right leg: Continue Zosyn, day 3. Wound care Cs. (2) Sustained VT (ventricular tachycardia): Oral amiodarone reduced to 200 mg twice daily. Continue metoprolol tartrate 100 mg twice daily. (3) Systolic CHF: Continue furosemide 40 mg twice daily plus albumin. Discussed with nephrology. Extra dose of IV furosemide 40 mg now, plus metolazone 5 mg. Will proceed with potassium chloride 20 meq x 1 to keep potassium > 4 mmol /l and spironolactone. DVT prophylaxis: Subcutaneous heparin, 7500 units 3 times daily. Subjective Ben denies chest discomfort or shortness of breath. Progressive swelling and weeping from his right lower extremity, which is very erythematous. Afebr ile. Telemetry reveals stable sinus rhythm in the range of 50 to 65 bpm without ectopy or arrhythmia. Review of Systems Review of Systems: All systems reviewed & are unremarkable except as noted in HPI & below Physical Exam Physical Exam: Temp Pulse Resp BP Pulse Ox 36.8 C 65 18 129/50 L 93 06/06/19 07:11 06/06/19 09:48 06/06/19 09:48 06/06/19 09:48 06/06/19 09:48 Constitutional: WD/WN, vitals as above + obese Respiratory: normal respiratory effort, lungs clear to auscultation Cardiovascular: RRR, no murmur, no edema Vessels: no JVD Extremities: + edema (2+ bilateral lower extremity, right lower extremity with erythema, w eeping clear/yellow fluid) Neurologic: PERRL, EOMI, accommodation nl, no face palsy, no dysarthria Results & Data Vital Signs (Past 12 Hours) Vital Signs Temp Pulse Pulse Resp BP Pulse Ox 06/06/19 09:48 65 18 129/50 L 93 06/06/19 07:11 36.8 C 58 L 18 139/52 L 95 06/06/19 02:52 37.1 C 59 L 19 123/54 L 97 06/05/19 23:20 36.9 C 56 L 20 107/59 L 93
[2019-06-06] MEDS ORDERED: FUROSEMIDE 40 MG in SYRINGE 0 ML IV ONE (10:15)
[2019-06-06] MEDS ORDERED: POTASSIUM CHLORIDE 20 MEQ TABCR PO STA (10:19)
--- NOTE | 2019-06-06 11:33 | Hospitalist Progress Note ---
Date of Service June 06, 2019 Assessment & Plan (1) Ventricular dysrhythmia: status post successful cardioversion, remains his normal sinus rhythm, On the p.o.. Amiodarone dose adjusted to 400 mg twice daily Metoprolol tartrate 100 mg twice daily ventricular dysrhythmia noted during this admission . pt developed Wide-complex tachycardia /sustained Vtach requiring lidocaine drip precipitating factors : electrolyte derangements ( low K ) /infection : right lower extremity cellulitis and known bacteremia( + group B streptococci in blood culture ) appreciate input from Cardiology /EP cardiology and ICU team s/p DC cardioverted externally in the ICU under sedation on 05/31 He was successfully cardioverted to sinus rhythm and remains in sinus rhythm EP apprentice machinist outside Dr. Dumont reprogrammed the patient's device. . . SEPSIS : Resolved, stable vitals, afebrile, normal white count admitted with Severe sepsis:resolved now admitted with SIRS( fever , marked leukocytosis 33K ) plus acute renal failure ( on CKD stage 3 ) plus lactic acid elevation possible source of infection : rt lower ext cellulitis treated with broad spectrum abx , Has been on IV rocephin ( for GBS bactereamia ) / no improvement of right lower extremity cellulitis, hepatic change to IV Zosyn Wound culture sent for right inner thigh area open wounds,: Gram stain shows pinpoint growth, no organism seen Bilateral lower extremity severe edema/lymphedema On IV Lasix 40 mg twice daily with albumin/added Zaroxolyn Patient is already on Aldactone On negative balance, Still lower extremity swelling/edema continues to worsen, family voiced concern, request transfer patient to higher level of care-[facility] Rt lower extremity cellulitis : possible source of sepsis extensive erythema , increased warmth , swelling and tenderness on rt lower ext antibiotic to IV Zosyn for broader coverage . IV daptomycin today for gram-positive organism Patient will need aggressive diuresis to relieve the lower extremity severe swelling or lymphedema adequately treat a cellulitis Appreciate input from cardiology, and is continued with IV Lasix +1 Continue to monitor volume status Gram positive bacteremia : group B streptococci on blood cultures : Echo - negative for vegetations but poorly visualized valvular structures without significant stenosis or regurgitation by Doppler. possible source rt lower ext cellulitis : repeat cultures no growth ID following On IV R Zosyn/daptomycin (2) Diabetes mellitus: On insulin pump at home which is currently being held. Continue basal bolus insulin. Pharmacy involved with glycemic control (3) Hypokalemia: corrected Follow BMP closely given ventricular arrythmia , Goal K > 4 /Mg > 2 (4) CHATO (acute kidney injury): admitted with acute renal failure ( due to severe sepsis ) CKD stage 3 ( baseline cr 1.6-1.7 ) admitted with Cr 2.5 , continue remained stable into cont to monitor BMP closely given complex medical issues - will need to be on diuretics due to congestive heart failure with systolic dysfunction On IV Lasix, added albumin to prevent intravascular volume depletion Monitor BMP, nephrology following (5) NINA on CPAP: Continue CPAP while sleeping and at night. Morbid obesity : BMI > 50 counselling of diet and lifestyle change (6) ICD (implantable cardioverter-defibrillator), dual, in situ: recent generator change on 03/[address] Dumont ICD firing this admission due to sustained Ventricular tachycardia AICD setting adjusted by ED apprentice machinist outside CHF WITH DIASTOLIC DYSFUNCTION : ECHO - mostly unchanged from previous study of 2017, mild dilatation of the LV chamber with moderate concentric LVH and the wall segments not akinetic. Slightly reduced LV systolic function, EF 30 to 35. There is a large sized apical, septal and anteroseptal wall motion normality with akinesis of the segments. Poorly visualized valvular structures without significant stenosis or regurgitation by Doppler. S/P AICD Getting IV Lasix with albumin cont to monitor vol status (7) DVT prophylaxis: very high risk Morbid obesity bilateral lower ext marked lymphedema with rt lower ext cellulitis Started on subcu heparin 7500mg 3 times daily-dose adjusted for elevated BMI CODE status : Full code Disposition- To be determined Patient's family request patient to be transferred to higher level of care, as no improvement/worsening of symptom of right lower extremity swelling edema noted in the last few days Addressed patient's family's concern I will talk with [facility] in [place] and tomorrow and discussed regarding potential transfer Admission and Anticipated Discharge Date Admission Date: May 26, 2019 Subjective Right lower extremity swelling, erythema worsened today Multiple skin breakdown with serous fluid see patient noted on right lower leg Patient reports of more tenderness/soreness on his right leg Unable to bear weight No fever or chills Heart rate remains well controlled sinus, No arrhythmia noted on telemetry No complaint of shortness of breath, chest discomfort Review of Systems Review of Systems: As per HPI, all 10 systems reviewed, all other ROS negative Cardiovascular: + orthopnea (Chronic) and + edema; no chest pain, no dyspnea at rest, no dyspnea on exertion and no lightheadedness Musculoskeletal: RLE pain, rash and edema Integumentary: + lesions (right heel crack noted , no surrouning erythema ), + erythema (marked swelling and erythema on right lower extremity , extending up to rt middle thigh ) and + problem reported (marked bilateral lower extremity swelling R> L ; erythema , swelling , increased warmth and tenderness on rt lower ext up to mid thigh ) Physical Exam Constitutional: WD/WN, vitals as above + morbidly obese; no acute distress Eyes: PERRL, conjunctivae normal, anicteric sclerae ENMT: external ear and nose normal, oropharynx normal Neck: trachea midline, no thyromegaly Respiratory: normal respiratory effort, lungs clear to auscultation Cardiovascular: Rate/Rhythm: regular rate and regular rhythm Extremities: + calf tenderness, + pedal edema (+ 3 edema ) and + edema (extensive bilat lower ext edema with increased warmth and swelling on rt) Gastrointestinal (Abdomen): Inspection/Auscultation: + abdomen distended (obese ) and normal bowel sounds Percussion/Palpation: abdomen soft; abdomen nontender Musculoskeletal: Extremities: + extremities abnormal to inspection (edema , erythema , swelling on rt lower extremity ) Skin: + induration (marked erythema , tenderness on rt lower ext from dorsal foot to thigh ) Neurologic: PERRL, EOMI, accommodation nl, no face palsy, no dysarthria Psychiatric: A+Ox3, euthymic affect Results & Data ([facility]) Vital Signs (Past 12 Hours) Vital Signs Temp Pulse Pulse Resp BP Pulse Ox 06/06/19 09:48 65 18 129/50 L 93 06/06/19 07:11 36.8 C 58 L 18 139/52 L 95 06/06/19 02:52 37.1 C 59 L 19 123/54 L 97 (1) Diabetes mellitus Chronic kidney disease stage: stage 3 (moderate) Diabetes mellitus complication detail: with chronic kidney disease Diabetes mellitus complication status: with kidney complications Diabetes mellitus manager terminal insulin use: with manager terminal use Diabetes mellitus type: type 2 Qualified Code(s): E11.22 - Type 2 diabetes mellitus with diabetic chronic kidney disease; N18.3 - Chronic kidney disease, stage 3 (moderate); Z79.4 - senior living (current) use of insulin
[2019-06-06] MEDS ORDERED: DAPTOMYCIN CONSULT ACTIVE PRN (12:47)
[2019-06-06] MEDS ORDERED: VANCOMYCIN HCL 1,000 MG in SODIUM CHLORIDE 0.9% 250 ML IV SCH (13:00)
--- NOTE | 2019-06-06 14:28 | Pharmacy Report ---
Pharmacy Glycemic Short Note 2 - Date of Service June 06, 2019 - Glycemic Short BSG Results (Last 24 hours): 06/05/19 06/05/19 06/06/19 16:11 20:00 05:40 Glucose 171 H POC Glucose 259 H 154 H 06/06/19 06/06/19 07:13 11:42 Glucose POC Glucose 179 H 264 H OUTPATIENT ANTIDIABETIC REGIMEN: * Patient uses Tandem insulin pump (Novolog U100 insulin used in pump) * Total daily doses reviewed and ranged 160-250units/day (most of which are basal doses): Basal rate 7units/hr (168 units/day) * It appears that his pump delivers mostly basal insulin doses as he admits to rarely bolusing himself and when he does bolus he stated he can only give up to 25units per bolus dose. He does have a CGM that will suspend his basal rate when trending low. * A1c = 9% 11/03/18 ASSESSMENT: 06/06: * Ben received 120 units of insulin yesterday * 60 units of basal * 60 units of bolus * BSG ranged from 124-259 mg/dL * Ben received a total of 144 units the day before. He did not receive morning novolog yesterday morning, likely contributing to the insulin discrepancy and subsequent hyperglycemia. I did tighten carb coverage for lunch and dinner. Further tightening may be warranted, but hesitant to make too many changes today. * Fasting BSG did increase and lantus dose was slightly increased. May increase evening dose even further if BSGs do not start downtrending. * Antibiotics were broadened today with concern for persistent infection, which is likely contributing as a stressor. 06/04: * Fasting BSG of 124 mg/dL is at goal - continue current Lantus order * Post prandial BSGs are mostly at goal. Lunchtime BSG tends to be the highest of the day (usually > 200 mg/dL) and HS BSG tends to be below goal. I will tighten carb ratio for breakfast only in attempt to avoid BSG spike at luncht ariana. PLAN FOR INPATIENT GLYCEMIC CONTROL: * Basal insulin -no increase * Lantus 32 units SQ BID * Bolus insulin - increase at lunch only * BSGs ACHS * Goal range: 110-140mg/dL Breakfast/Lunch: * Correction factor: 12 mg/dL/unit * Nutritional / Prandial insulin per carb ratio of 1 unit per 3.5 grams CHO consumed dinner-HS: * Correction factor: 12 mg/dL/unit * Nutritional / Prandial insulin per carb ratio of 1 unit per 4 grams CHO consumed PLAN FOR DISCHARGE: * to be determined. it seems that patient has some difficulties with using his insulin pump and may not be bolusing himself appropriately and his pump reservoir may not hold a full 24 hr supply of insulin to fit his needs.
[2019-06-06] MEDS: DAPTOmycin 600 MG in SYRINGE 0 ML IV SCH (15:20)
--- NOTE | 2019-06-06 18:37 | Hospitalist Progress Note ---
Date of Service June 06, 2019 Assessment & Plan Admission and Anticipated Discharge Date Admission Date: May 26, 2019 Subjective Attending addendum: Patient's voiced concern, as patient's right lower extremity swelling, cellulitis, erythema continues to be getting worse in the last couple of days, Has been treating with aggressive diuresis, has been on IV Zosyn, added daptomycin for broader coverage/gram-positive cocci Family request patient to be transferred to higher level of care, [facility] I reached out to family, patient's , Updated that will talk with infectious disease, hospitalist in [facility] tomorrow, if patient is accepted under hospitalist care, will be transferred via ambulance tomorrow Arcelia Forrester MD Results & Data ([facility]) Vital Signs (Past 12 Hours) Vital Signs Temp Pulse Pulse Pulse Resp BP Pulse Ox 06/06/19 15:47 36.8 C 63 18 121/45 L 93 06/06/19 11:42 36.5 C 61 18 138/65 98 06/06/19 09:48 65 18 129/50 L 93 06/06/19 08:00 56 L 06/06/19 07:11 36.8 C 58 L 18 139/52 L 95
[2019-06-06] MEDS: PANTOprazole 40 MG TAB PO SCH (20:54)
[2019-06-07] MEDS: OXYCODONE HCL IR 5 MG TAB (IMMEDIATE RELEASE) PO PRN ×5 (01:26→20:49)
[2019-06-07] MEDS: HEPARIN SODIUM (PORCINE) 7,500 UNITS in SYRINGE 0 ML SQ SCH ×3 (05:44→21:38)
[2019-06-07] MEDS: LEVOTHYROXINE SODIUM 100 MCG TABLET PO SCH (05:44)
[2019-06-07 06:34] LABS: Calcium 9.3 mg/dl (8.5-10.1); Creatinine Clr Calc Pharmacy 65.1 ml/min; Est GFR (African American) 38.5; Est GFR (Non-African American) 33.2; Magnesium 2.1 mg/dl (1.8-2.4); Potassium 4.2 mmol/L (3.5-5.1)
--- NOTE | 2019-06-07 07:34 | Communication Note ---
Date of Service: June 07, 2019 5L of urine output yesterday. BP, Creat, electrolytes stable. Continue furosemide plus albumin 40 IV BID for now. Metolazone 5 mg po today.
[2019-06-07] MEDS ORDERED: POTASSIUM CHLORIDE 20 MEQ TABCR PO STA (07:41)
[2019-06-07] MEDS ORDERED: metOLazone 5 MG TABLET PO ONE (07:45)
[2019-06-07] MEDS: AMIODARONE 200 MG TAB PO SCH ×2 (07:48→17:03)
[2019-06-07] MEDS: PIPERACILLIN/TAZOBACTAM 4.5 GM in DEXTROSE 5% 50 ML IV SCH (07:49)
[2019-06-07] MEDS: INSULIN ASPART 100 UNITS/ML 3 ML PEN SC SCH ×4 (08:51→20:47)
[2019-06-07] MEDS: ASPIRIN 81 MG ECTAB PO SCH (10:45)
[2019-06-07] MEDS: METOPROLOL TARTRATE 100 MG TAB PO SCH ×2 (10:45→20:54)
[2019-06-07] MEDS: SACCHAROMYCES BOULARDII 250 MG CAP PO SCH (10:45)
[2019-06-07] MEDS: GABAPENTIN 300 MG CAP PO SCH ×3 (10:45→20:55)
[2019-06-07] MEDS: SPIRONOLACTONE 25 MG TAB PO SCH (10:45)
[2019-06-07] MEDS: LIDOCAINE 5% 1 PATCH TD SCH (10:46)
[2019-06-07] MEDS: FLUTICASONE PROPIONATE NA SPR 16 GM BTL SCH ×2 (10:46→20:57)
[2019-06-07] MEDS: FLUTICASONE/VILANTEROL 200/25MCG 14 PUFFS/INHALER INH SCH (10:46)
[2019-06-07] MEDS: INSULIN GLARGINE SOLOSTAR 100 UNITS/ML 3 ML PEN SC SCH ×2 (10:47→20:47)
[2019-06-07] MEDS: ALBUMIN 25% 50 ML with FUROSEMIDE 40 MG IV SCH (10:57)
[2019-06-07] MEDS ORDERED: CEFEPIME CONSULT ACTIVE PRN (11:09)
[2019-06-07] MEDS: DOCUSATE SODIUM/SENNA 50/8.6MG TAB PO SCH (11:59)
--- NOTE | 2019-06-07 12:35 | Hospitalist Progress Note ---
Date of Service June 07, 2019 Assessment & Plan (1) Ventricular dysrhythmia: status post successful cardioversion, remains his normal sinus rhythm, On the p.o.. Amiodarone dose adjusted to 400 mg twice daily Metoprolol tartrate 100 mg twice daily ventricular dysrhythmia noted during this admission . pt developed Wide-complex tachycardia /sustained Vtach requiring lidocaine drip precipitating factors : electrolyte derangements ( low K ) /infection : right lower extremity cellulitis and known bacteremia( + group B streptococci in blood culture ) appreciate input from Cardiology /EP cardiology and ICU team s/p DC cardioverted externally in the ICU under sedation on 05/31 He was successfully cardioverted to sinus rhythm and remains in sinus rhythm EP rn sane Dr. Dumont reprogrammed the patient's device. . Plan was to transfer patient to [facility] for further care, persistent right lower extremity cellulitis/edema Patient is a high risk for developing a ventricular tachyarrhythmia in the setting of infection/dehydration Electrolytes should be monitored very closely, magnesium level for potassium above 4 Per hospitalist at [facility] may not be able to offer any any differently then are given to him at [facility] Commence lower external Doppler ultrasound, history significant vascular narrowing or stenosis preventing wound healing, given complexity of nature of the patient willing to patient to [facility] after discussing with her vascular surgeon SEPSIS : Resolved, stable vitals, afebrile, normal white count admitted with Severe sepsis:resolved now admitted with SIRS( fever , marked leukocytosis 33K ) plus acute renal failure ( on CKD stage 3 ) plus lactic acid elevation possible source of infection : rt lower ext cellulitis treated with broad spectrum abx , Has been on IV rocephin ( for GBS bactereamia ) / no improvement of right lower extremity cellulitis, hepatic change to IV Zosyn Wound culture sent for right inner thigh area open wounds,: Gram stain shows pinpoint growth, no organism seen Bilateral lower extremity severe edema/lymphedema On IV Lasix 40 mg twice daily with albumin/added Zaroxolyn Patient is already on Aldactone On negative balance, Kristen with cardiology plan to start Lasix drip today Rt lower extremity cellulitis : possible source of sepsis extensive erythema , increased warmth , swelling and tenderness on rt lower ext antibiotic to IV Zosyn for broader coverage . IV daptomycin today for gram-positive organism Patient will need aggressive diuresis to relieve the lower extremity severe swelling or lymphedema adequately treat a cellulitis Appreciate input from cardiology, patient was treated with IV Lasix and albumin May need IV Lasix drip Continue to monitor volume status Gram positive bacteremia : group B streptococci on blood cultures : Echo - negative for vegetations but poorly visualized valvular structures without significant stenosis or regurgitation by Doppler. possible source rt lower ext cellulitis : repeat cultures no growth ID following On IV daptomycin, antibiotic changed to IV cefepime (2) Diabetes mellitus: On insulin pump at home which is currently being held. Continue basal bolus insulin. Pharmacy involved with glycemic control (3) Hypokalemia: corrected Follow BMP closely given ventricular arrythmia , Goal K > 4 /Mg > 2 (4) CHATO (acute kidney injury): admitted with acute renal failure ( due to severe sepsis ) CKD stage 3 ( baseline cr 1.6-1.7 ) admitted with Cr 2.5 , continue remained stable into cont to monitor BMP closely given complex medical issues - will need to be on diuretics due to congestive heart failure with systolic dysfunction On IV Lasix, added albumin to prevent intravascular volume depletion Monitor BMP, nephrology following (5) NINA on CPAP: Continue CPAP while sleeping and at night. Morbid obesity : BMI > 50 counselling of diet and lifestyle change (6) ICD (implantable cardioverter-defibrillator), dual, in situ: recent generator change on 03/[address] Dumont ICD firing this admission due to sustained Ventricular tachycardia AICD setting adjusted by ED rn sane CHF WITH DIASTOLIC DYSFUNCTION : ECHO - mostly unchanged from previous study of 2017, mild dilatation of the LV chamber with moderate concentric LVH and the wall segments not akinetic. Slightly reduced LV systolic function, EF 30 to 35. There is a large sized apical, septal and anteroseptal wall motion normality with akinesis of the segments. Poorly visualized valvular structures without significant stenosis or regurgitation by Doppler. S/P AICD Getting IV Lasix with albumin cont to monitor vol status (7) DVT prophylaxis: very high risk Morbid obesity bilateral lower ext marked lymphedema with rt lower ext cellulitis Started on subcu heparin 7500mg 3 times daily-dose adjusted for elevated BMI CODE status : Full code Disposition- To be determined Patient's family request patient to be transferred to higher level of care, as no improvement/worsening of symptom of right lower extremity swelling edema noted in the last few days Addressed patient's family's concern Discussed with hospitalist at [facility] in [place], He will not be able to accept patient for nonhealing right lower extremity cellulitis or wound Patient has any vascular compromise /needs vascular intervention, patient can be accepted for transfer to [place] Admission and Anticipated Discharge Date Admission Date: May 26, 2019 Subjective Appreciate input from wound care, right lower extremity wrapped today, patient mentions of some improvement of tenderness, still persistent swelling of right lower extremity, No fever or chills, no shortness of breath, heart rhythm remains sinus with rate controlled Given patient's complex cardiac history, sustained ventricular tachycardia/status post cardioversion, no improvement/worsening symptom of right lower extremity cellulitis with persistent edema Transfer to higher level of care/tertiary care would be appropriate Called [facility] today, Case discussed with on-call hospitalist Dr. Justine Mckenzie advised to have the lower extremity Doppler to see any vascular deficiency Patient has arterial stenosis, for vascular intervention may be appropriate to transfer to higher level of care For nonhealing right lower extremity cellulitis they do not feel we will be able to offer anything different than treatment is provided at [facility] Review of Systems Review of Systems: As per HPI, all 10 systems reviewed, all other ROS negative Cardiovascular: + orthopnea (Chronic) and + edema; no chest pain, no dyspnea at rest, no dyspnea on exertion and no lightheadedness Musculoskeletal: RLE pain, rash and edema Integumentary: + lesions (right heel crack noted , no surrouning erythema ), + erythema (marked swelling and erythema on right lower extremity , extending up to rt middle thigh ) and + problem reported (marked bilateral lower extremity swelling R> L ; erythema , swelling , increased warmth and tenderness on rt lower ext up to mid thigh ) Physical Exam Constitutional: WD/WN, vitals as above + morbidly obese; no acute distress Eyes: PERRL, conjunctivae normal, anicteric sclerae ENMT: external ear and nose normal, oropharynx normal Neck: trachea midline, no thyromegaly Respiratory: normal respiratory effort, lungs clear to auscultation Cardiovascular: Rate/Rhythm: regular rate and regular rhythm Extremities: + calf tenderness, + pedal edema (+ 3 edema ) and + edema (extensive bilat lower ext edema with increased warmth and swelling on rt) Gastrointestinal (Abdomen): Inspection/Auscultation: + abdomen distended (obese ) and normal bowel sounds Percussion/Palpation: abdomen soft; abdomen nontender Musculoskeletal: Extremities: + extremities abnormal to inspection (edema , erythema , swelling on rt lower extremity ) Skin: + induration (marked erythema , tenderness on rt lower ext from dorsal foot to thigh ) Neurologic: PERRL, EOMI, accommodation nl, no face palsy, no dysarthria Psychiatric: A+Ox3, euthymic affect Results & Data ([facility]) Vital Signs (Past 12 Hours) Vital Signs Temp Pulse Pulse Pulse Resp BP Pulse Ox 06/07/19 11:00 36.9 C 74 18 134/54 L 91 06/07/19 07:44 37.4 C 75 22 148/90 H 94 06/07/19 07:30 73 06/07/19 07:13 38.2 C H 73 18 119/47 L 90 06/07/19 03:41 37.8 C H 71 22 123/50 L 91 06/07/19 01:37 38 C H 75 24 145/60 H 91 (1) Diabetes mellitus Chronic kidney disease stage: stage 3 (moderate) Diabetes mellitus complication detail: with chronic kidney disease Diabetes mellitus complication status: with kidney complications Diabetes mellitus detention insulin use: with lobsterman use Diabetes mellitus type: type 2 Qualified Code(s): E11.22 - Type 2 diabetes mellitus with diabetic chronic kidney disease; N18.3 - Chronic kidney disease, stage 3 (moderate); Z79.4 - moth exterminator (current) use of insulin
--- NOTE | 2019-06-07 12:56 | Hospitalist Progress Note ---
Date of Service June 07, 2019 Assessment & Plan Admission and Anticipated Discharge Date Admission Date: May 26, 2019 Subjective Attending note: Received call from [facility], hospitalist Dr. Justine Mckenzie is requesting more definitive reason for the transfer to [place] Patient has a nonhealing right lower extremity cellulitis, [place] hospitalist is not sure they will be able to provide care any different other than broad-spectrum antibiotic, diuresis -Does not believe patient needs to be transferred to higher level of care for that If patient has any vascular compromise which needs vascular surgery intervention, will consider excepting patient after discussion with [facility] vascular surgery Stat lower extremity arterial Doppler ordered We will update [facility] once arterial Doppler report is available Arcelia Forrester MD Results & Data ([facility]) Vital Signs (Past 12 Hours) Vital Signs Temp Pulse Pulse Pulse Resp BP Pulse Ox 06/07/19 11:00 36.9 C 74 18 134/54 L 91 06/07/19 07:44 37.4 C 75 22 148/90 H 94 06/07/19 07:30 73 06/07/19 07:13 38.2 C H 73 18 119/47 L 90 06/07/19 03:41 37.8 C H 71 22 123/50 L 91 06/07/19 01:37 38 C H 75 24 145/60 H 91
--- NOTE | 2019-06-07 14:19 | Cardiology Progress Note ---
Date of Service June 07, 2019 Assessment & Plan (1) Cellulitis of right leg: (2) Sustained VT (ventricular tachycardia): (3) Lymphedema: (4) Systolic CHF: Cased discussed with Dr Forrester. I had long discussion with patient and his daughter. Although the patient and his daughter are both frustrated that he is not making a lot of progress, I did provide them my insight that I believe he has made significant progress compared to when I met him a week ago at the time of emergent direct-current cardioversion for sustained ventricular tachycardia. His mental status has been normal, blood pressure stable, he has been without fevers or chills. His leg however has not improved significantly, but I think overall, from an illness standpoint he has made progress. Telemetry reveals ongoing sinus rhythm without any recurrent arrhythmias. His creatinine is a bit above his typical baseline at just over 2 mg/dL, but overall stable, and his electrolytes are stable I have requested that the planned lower extremity arterial duplex be performed is a bedside study. The patient received a dose of oral metolazone today along with 40 mg of IV furosemide. Will start him on a furosemide infusion. Continue subcutaneous heparin for DVT prophylaxis. Subjective Ben reports feeling relatively well. The patient and his daughter are frustrated about his lack of progress. He denies subjective fevers or chills. 5 L of urine output noted yesterday having received 3 doses of 40 mg of IV furosemide yesterday, albumin, and 5 mg of oral metolazone. Blood pressure and electrolytes are stable. Renal function stable. Review of Systems Review of Systems: All systems reviewed & are unremarkable except as noted in HPI & below Physical Exam Physical Exam: Temp Pulse Resp BP Pulse Ox 36.9 C 74 18 134/54 L 91 06/07/19 11:00 06/07/19 11:00 06/07/19 11:00 06/07/19 11:06/07/19 11:00 Constitutional: WD/WN, vitals as above Respiratory: normal respiratory effort, lungs clear to auscultation Cardiovascular: Rate/Rhythm: regular rhythm Heart Sounds: no murmur Gastrointestinal (Abdomen): normal bowel sounds, soft, nontender, no hepatosplenomegaly Skin: 1+ left lower extremity edema, knee-high compression stocking in place 2+ right lower extremity edema, with erythema Neurologic: PERRL, EOMI, accommodation nl, no face palsy, no dysarthria Results & Data Vital Signs (Past 12 Hours) Vital Signs Temp Pulse Pulse Pulse Resp BP Pulse Ox 06/07/19 11:00 36.9 C 74 18 134/54 L 91 06/07/19 07:44 37.4 C 75 22 148/90 H 94 06/07/19 07:30 73 06/07/19 07:13 38.2 C H 73 18 119/47 L 90 06/07/19 03:41 37.8 C H 71 22 123/50 L 91
[2019-06-07] MEDS: DAPTOmycin 600 MG in SYRINGE 0 ML IV SCH (14:30)
[2019-06-07] MEDS ORDERED: FUROSEMIDE 40 MG in SYRINGE 0 ML IV ONE (14:30)
[2019-06-07] MEDS: FUROSEMIDE 100 MG in DEXTROSE 5% 90 ML IV SCH ×2 (14:52→23:57)
--- NOTE | 2019-06-07 14:58 | Nephrology Progress Note ---
Date of Service June 07, 2019 Assessment & Plan (1) Acute renal failure superimposed on stage 3 chronic kidney disease: baseline creatinine 1.6-1.8 in [facility] in 2019; had CHATO on presentation w/ rapid resolution to baseline. now w/ creatinine 2.2 today, up from 2.1 yesterday. likely from aggressive and obligate diuresis as well as ongoing infection/obligate abtx. no evidence of obstruction or acute gu process on admission imaging; admission ua contaminated and w/ blood, urine but no infection. -cefepime and other abtx in as little IV fluid as possible -daily bmp -cont strict I/O -continue spironolactone; -agree w/ lasix gtt current rate (10 mg /hr) -- titrate up as indicated -continue nephrotoxin avoidance -ordered <2gm daily Na and fluid limit 1.5 L Present on Admission?: No (2) Sustained VT (ventricular tachycardia): Controlled continue management per cardiology and primary service; Admission and Anticipated Discharge Date Admission Date: May 26, 2019 Subjective 2.7 L negative; started on lasix gtt this afternoon; c/o ongoing leg pain. Review of Systems Review of Systems: All systems reviewed & are unremarkable except as noted in HPI & below Constitutional: + weakness Respiratory: no cough, no dyspnea and no dyspnea on exertion Gastrointestinal: no abdominal pain and no vomiting Genitourinary: + urinary frequency and + urinary incontinence; no dysuria Integumentary: + lesions (c/o pain w/ these) Physical Exam Constitutional: well developed, well nourished and + obese; no acute distress (on RA) Eyes: EOM intact bilaterally ENMT: Ears: no external ear abnormality Nose: no external nose abnormality Mouth: + dry oral mucous membranes Neck: no nuchal rigidity Respiratory: normal respiratory effort Auscultation: + breath sounds absent (BL bases and most of posterior smith) and + diminished lung sounds Cardiovascular: Rate/Rhythm: regular rate and regular rhythm Extremities: + edema (3+ pedal BLE and RLE ) Gastrointestinal (Abdomen): Inspection/Auscultation: normal bowel sounds Percussion/Palpation: abdomen soft; abdomen nontender Musculoskeletal: Extremities: strength 5/5 throughout Skin: no rashes, warm and dry + lesion (RLE w/ green drainage) and + erythema (poorly demarcated RLE distal/to knee) Neurologic: harvey, fluent speech, no tremor Psychiatric: Orientation: alert and oriented x 3 Speech: normal rate/rhythm/volume of speech Affect: + anxious affect Genitourinary: incontinent of urine Results & Data ([facility]) Vital Signs (Past 12 Hours) Vital Signs Temp Pulse Pulse Pulse Resp BP Pulse Ox 06/07/19 11:00 36.9 C 74 18 134/54 L 91 06/07/19 07:44 37.4 C 75 22 148/90 H 94 06/07/19 07:30 73 06/07/19 07:13 38.2 C H 73 18 119/47 L 90 06/07/19 03:41 37.8 C H 71 22 123/50 L 91 Laboratory Results 06/01/19 04:40 06/07/19 11:19 AM bMP reviewed (1) Acute renal failure superimposed on stage 3 chronic kidney disease Acute renal failure type: unspecified Qualified Code(s): N17.9 - Acute kidney failure, unspecified; N18.3 - Chronic kidney disease, stage 3 (moderate)
[2019-06-07] MEDS: CEFEPIME 2,000 MG in SYRINGE 7.5 ML IV SCH (16:07)
--- NOTE | 2019-06-07 17:02 | Ultrasound Report ---
US arterial duplex LE BI HISTORY: 53 years-old Male poor wound healing reported nonhealing wound of the lower extremities COMPARISON: None TECHNIQUE: Multiple real-time sonographic images of the lower extremity arterial structures were obta ined assessing grayscale appearance, color and spectral flow FINDINGS: Study is limited secondary to patient body habitus. LEFT: Triphasic waveforms within the common femoral, superficial femoral, popliteal, posterior tibial, ross karlo and anterior tibial arteries with biphasic waveforms in the dorsalis pedis artery. Nonvisualizat ion of the profunda femoris artery. No elevated peak systolic velocities identified to suggest high-g rade stenosis. No arterial occlusion. RIGHT: Blunted biphasic waveforms of the common femoral artery with velocities measuring up to 162 cm/s. Bip hasic waveforms are also noted within the superficial femoral artery with elevated peak systolic [place] measuring up to 184 cm/s. Spectral broadening with biphasic waveforms of the popliteal artery. Monophasic and biphasic waveforms of the lower leg without arterial occlusion. Subcutaneous edema no charles. IMPRESSION: 1. Limited study secondary to patient body habitus and lower extremity open wounds. 2. Findings compatible with inflow disease of the right lower extremity as above. Mildly elevated pea k systolic velocities of the right common and superficial femoral arteries suggest associated luminal narrowing likely from atherosclerotic vascular disease. 3. No arterial occlusion identified. ACT 112: Negative or not required by law. The above report was generated using voice recognition software. It may contain grammatical, syntax o r spelling errors. Electronically signed by: Flynn Johnson M.D. 06/07/2019 5:01 PM
--- NOTE | 2019-06-07 18:01 | Hospitalist Progress Note ---
Date of Service June 07, 2019 Assessment & Plan Admission and Anticipated Discharge Date Admission Date: May 26, 2019 Subjective Attending addendum: Discussed lower extremity arterial Doppler findings to [facility] hospitalist Dr. Ward Erazo Also [facility] vascular surgeon as well, Given arterial Doppler does show narrowing of right common femoral artery suggestive of poor circulation, nonhealing cellulitis of right lower extremity, with worsening of erythema, Hospitalist feels appropriate that patient can be transferred to [facility] Arrangements made to transfer patient to [facility] today Patient will be sent via ground ACLS Accepting physician: [facility] hospitalist Dr. Ward Forrester MD Results & Data ([facility]) Vital Signs (Past 12 Hours) Vital Signs Temp Pulse Pulse Pulse Resp BP Pulse Ox 06/07/19 15:28 67 06/07/19 15:00 37.2 C 68 16 127/51 L 95 06/07/19 11:00 36.9 C 74 18 134/54 L 91 06/07/19 07:44 37.4 C 75 22 148/90 H 94 06/07/19 07:30 73 06/07/19 07:13 38.2 C H 73 18 119/47 L 90
--- NOTE | 2019-06-07 18:07 | Discharge Summary ---
Date of Service June 07, 2019 Admission HPI Per Admitting Provider History obtained from patient and records. HPI: Medical history significant for chronic systolic heart failure, EF 30-34%, TTE 2017) sp ICD, hx paroxysmal VT as per records, hypertension, hyperlipidemia, DM2 on insulin pump, CRI (baseline creatinine 1.6), pulmonary hypertension/OHS on BiPAP as per records. Recent confinement July 2017 for left lower extremity cellulitis. 2 weeks ago, patient seen at PCPs office for achy right shoulder pain after falling. Pain still bothersome. Patient appetite not well the last few days. Achy mid abdominal pain with nausea, emesis. Dry cough symptoms. No chest pain. Some S OB. Denies fluid retention. Fever chills at home. Cracked skin on left heel with transient bloody drainage. Blood sugar 40s at home which is unusual for him. At the ER, patient given Zosyn for possible sepsis. MEDICAL HISTORY: As above. SURGICAL HISTORY: Left shoulder surgery. ICD, tonsillectomy/adenoidectomy FAMILY HISTORY: There is a family history of heart disease and hypertension. PERSONAL SOCIAL HISTORY: Nonsmoker. No chronic intake of alcoholic beverages. Disabled. Principal Diagnosis Right lower extremity, cellulitis/nonhealing ulcer, History of ventricular tachycardia status post cardioversion Discharge Exam Constitutional WD/WN, vitals as above + morbidly obese; no acute distress Eyes PERRL, conjunctivae normal, anicteric sclerae ENMT external ear and nose normal, oropharynx normal Neck trachea midline, no thyromegaly Respiratory normal respiratory effort, lungs clear to auscultation Cardiovascular Rate/Rhythm: regular rate and regular rhythm Extremities: + calf tenderness, + pedal edema (+ 3 edema ) and + edema (extensive bilat lower ext edema with increased warmth and swelling on rt) Gastrointestinal (Abdomen) Inspection/Auscultation: + abdomen distended (obese ) and normal bowel sounds Percussion/Palpation: abdomen soft; abdomen nontender Musculoskeletal Extremities: + extremities abnormal to inspection (edema , erythema , swelling on rt lower extremity ) Skin + induration (marked erythema , tenderness on rt lower ext from dorsal foot to thigh ) Neurologic PERRL, EOMI, accommodation nl, no face palsy, no dysarthria Psychiatric A+Ox3, euthymic affect Discharge Data Allergies Allergy/AdvReac Type Severity Reaction Status Date / Time benzonatate AdvReac Intermediate choking, Verified 05/26/19 00:26 gagging Consultations 05/25/19 23:00 ED Decision to Admit Stat 05/26/19 10:23 Consult Infectious Diseases Routine 05/26/19 15:51 Consult Cardiology Stat 05/29/19 11:40 Consult Infectious Diseases Routine 05/31/19 04:10 Consult Case Management - Discharge Planning Routine Consult Fiscal Manager Routine 06/01/19 09:20 Consult Nephrology Routine Ordered Studies 05/25/19 21:27 CT abd pelvis wo con Stat 05/26/19 04:34 CT shoulder RT wo con Urgent 05/26/19 22:34 CT lumbar spine wo con Urgent US venous doppler LE RT Urgent 05/28/19 22:39 CT femur RT wo con Urgent 06/01/19 09:14 US venous doppler LE RT Routine 06/07/19 15:00 US arterial duplex LE BI Stat Hospital Course (1) Ventricular dysrhythmia: status post successful cardioversion, remains his normal sinus rhythm, On the p.o.. Amiodarone dose adjusted to 400 mg twice daily Metoprolol tartrate 100 mg twice daily ventricular dysrhythmia noted during this admission . pt developed Wide-complex tachycardia /sustained Vtach requiring lidocaine drip precipitating factors : electrolyte derangements ( low K ) /infection : right lower extremity cellulitis and known bacteremia( + group B streptococci in blood culture ) appreciate input from Cardiology /EP cardiology and ICU team s/p DC cardioverted externally in the ICU under sedation on 05/31 He was successfully cardioverted to sinus rhythm and remains in sinus rhythm EP prop and effects designer Dr. Dumont reprogrammed the patient's device. . Patient is transferred patient to [facility] for further care, persistent right lower extremity cellulitis/edema Patient is a high risk for developing a ventricular tachyarrhythmia in the setting of infection/dehydration Electrolytes should be monitored very closely, magnesium level for potassium above 4 Continue amiodarone 400 mg twice daily/metoprolol tartrate 100 mg twice daily Right lower external Doppler ultrasound: IMPRESSION: 1. Limited study secondary to patient body habitus and lower extremity open wounds. 2. Findings compatible with inflow disease of the right lower extremity as above. Mildly elevated peak systolic velocities of the right common and superficial femoral arteries suggest associated luminal narrowing likely from atherosclerotic vascular disease. 3. No arterial occlusion identified. history significant vascular narrowing or stenosis preventing wound healing, given complexity of nature of patient is transferred to [facility] Accepting physician: Dr. Ward Erazo hospitalist SEPSIS : Resolved, stable vitals, afebrile, normal white count admitted with Severe sepsis:resolved now admitted with SIRS( fever , marked leukocytosis 33K ) plus acute renal failure ( on CKD stage 3 ) plus lactic acid elevation possible source of infection : rt lower ext cellulitis treated with broad spectrum abx , Has been on IV rocephin ( for GBS bactereamia ) / no improvement of right lower extremity cellulitis, hepatic change to IV Zosyn Wound culture sent for right inner thigh area open wounds,: Gram stain shows pinpoint growth, no organism seen Bilateral lower extremity severe edema/lymphedema On IV Lasix 40 mg twice daily with albumin/added Zaroxolyn Patient is already on Aldactone On negative balance, Cardiology started patient on IV Lasix drip Given nonhealing of lower extremity cellulitis, worsening of swelling/pain need for vascular procedure, patient is transferred to [facility] Rt lower extremity cellulitis : possible source of sepsis extensive erythema , increased warmth , swelling and tenderness on rt lower ext IV cefepime . IV daptomycin added gram-positive organism Patient will need aggressive diuresis to relieve the lower extremity severe swelling or lymphedema adequately treat a cellulitis Appreciate input from cardiology, on IV Lasix drip Continue to monitor volume status Gram positive bacteremia : group B streptococci on blood cultures : Echo - negative for vegetations but poorly visualized valvular structures without significant stenosis or regurgitation by Doppler. possible source rt lower ext cellulitis : repeat cultures no growth ID following On IV daptomycin, antibiotic changed to IV cefepime (2) Diabetes mellitus: On insulin pump at home which is currently being held. Continue basal bolus insulin. Pharmacy involved with glycemic control (3) Hypokalemia: corrected Follow BMP closely given ventricular arrythmia , Goal K > 4 /Mg > 2 (4) CHATO (acute kidney injury): admitted with acute renal failure ( due to severe sepsis ) CKD stage 3 ( baseline cr 1.6-1.7 ) admitted with Cr 2.5 , continue remained stable into cont to monitor BMP closely given complex medical issues - will need to be on diuretics due to congestive heart failure with systolic dysfunction On IV Lasix, added albumin to prevent intravascular volume depletion Monitor BMP, nephrology following (5) NINA on CPAP: Continue CPAP while sleeping and at night. Morbid obesity : BMI > 50 counselling of diet and lifestyle change (6) ICD (implantable cardioverter-defibrillator), dual, in situ: recent generator change on 03/[address] Dumont ICD firing this admission due to sustained Ventricular tachycardia AICD setting adjusted by ED prop and effects designer CHF WITH DIASTOLIC DYSFUNCTION : ECHO - mostly unchanged from previous study of 2017, mild dilatation of the LV chamber with moderate concentric LVH and the wall segments not akinetic. Slightly reduced LV systolic function, EF 30 to 35. There is a large sized apical, septal and anteroseptal wall motion normality with akinesis of the segments. Poorly visualized valvular structures without significant stenosis or regurgitation by Doppler. S/P AICD Getting IV Lasix with albumin cont to monitor vol status (7) DVT prophylaxis: very high risk Morbid obesity bilateral lower ext marked lymphedema with rt lower ext cellulitis Started on subcu heparin 7500mg 3 times daily-dose adjusted for elevated BMI CODE status : Full code Disposition- Patient is transferred to [facility] for further care Total Time Total Time Spent Total Time Spent (In Minutes): Approximately 45 minutes Total Time Includes: Examination of the Patient, Discharge Planning, Medication Reconciliation and Communication With Other Providers Discharge Plan Discharge Items Patient Disposition: Transfer Acute Care Hospital Reason For Visit: SEPSIS Discharge Diagnosis: Right lower extremity, cellulitis/nonhealing ulcer, History of ventricular tachycardia status post cardioversion Activity: As commented below Activity Comment: As tolerated Non-emergency contact: Primary Care Provider Call non-emergency contact if: you have any medication questions Follow-up/Referrals: Sherry Maya DO [Primary Care Provider] - Diet: Carb Consistent or DM2 and Heart Healthy Addtl Attending Provider Instructions: Patient is transferred to [facility] for further care Accepting physician: Dr. Ward Erazo hospitalist [employer] Provider Instructions: -[facility] will contact [email or web address] to schedule follow up in kidney clinic 2-4 weeks after discharge Pending Studies at Discharge: No Stand-Alone Forms: My [facility] Skilled Items Patient informed of condition?: Yes DNR: No Discharge Level of Care: Other Communicable Disease: No Discharge Prognosis: Deteriorating Lines: None Urinary Catheter: No Medications and DC Order Prescriptions: New spironolactone 25 mg Tablet 25 mg PO DAILY Qty: 0 RF: 0 metoprolol tartrate 100 mg Tablet 100 mg PO BID Qty: 0 RF: 0 Continued aspirin [Aspir-81] 81 mg tablet,delayed release (DR/EC) 81 mg PO QAM RF: 0 bumetanide 1 mg tablet 1 mg PO BID RF: 0 fluticasone propionate [Flonase Allergy Relief] 50 mcg/actuation spray,suspension 2 sprays INTNAS BID RF: 0 levothyroxine 100 mcg capsule 100 mcg PO QAM RF: 0 losartan 25 mg tablet 25 mg PO QAM RF: 0 magnesium oxide 400 mg capsule 400 mg PO QAM RF: 0 metolazone 5 mg tablet 5 mg PO 3XWK RF: 0 mometasone-formoterol [Dulera] 200-5 mcg/actuation HFA aerosol inhaler 2 puffs INH BID RF: 0 nitroglycerin 0.4 mg tablet, sublingual 0.4 mg SL Q5M PRN (Reason: Chest Pain) RF: 0 omeprazole 20 mg capsule,delayed release(DR/EC) 20 mg PO QPM RF: 0 spironolactone [Aldactone] 25 mg tablet 25 mg PO QAM RF: 0 tramadol 50 mg tablet 50 mg PO Q6H PRN (Reason: pain) RF: 0 Trulicity 1.5 mg/0.5 mL pen injector 1.5 mg SQ WK RF: 0 potassium chloride [Klor-Con M20] 20 mEq Tablet,Er Particles/Crystals 40 meq PO BID RF: 0 hyoscyamine sulfate [Levsin] 0.125 mg Tablet 0.125 mg PO TID RF: 0 gabapentin 300 mg Capsule 300 mg PO TID RF: 0 ergocalciferol (vitamin D2) 2,500 unit Capsule 5,000 unit PO WK RF: 0 insulin aspart U-100 [Novolog U-100 Insulin aspart] 100 unit/mL solution 0 unit continuous subcutaneous infusion CONTINOUS RF: 0 Changed amiodarone 100 mg Tablet 200 mg PO QAM Qty: 0 RF: 0 Discontinued atorvastatin 80 mg tablet 80 mg PO QPM RF: 0 metoprolol succinate 50 mg capsule,sprinkle,ER 24hr 50 mg PO QPM RF: 0 Discharge Orders: Discharge Order (Routine); Ordered 06/07/19 Ordered By: Arcelia Forrester Admission Data Admit Date/Time: 05/26/19 01:25 Attending Provider: Arcelia Forrester Admit Provider: Bereket Medellin Primary Care Provider: Sherry Maya Other Providers: Jaimee Parisi ; [facility] ; Bereket Medellin ; Jadiel Hung ; Bryan Valdivia ; Carolyn Crowe ; Boogie Menezes ; Clementina Harry ; Fela Montalvo ; Alfonzo Spring
[2019-06-07 18:25] LABS: Hemoglobin 10.3 g/dL (14.0-18.0); Mean Corpuscular Hemoglobin 29.3 pg (25-34); Mean Corpuscular Volume 90.9 fL (80-100); Mean Platelet Volume 9.5 fL (7.4-10.4); Platelet Count 377 K/uL (130-400); RDW Coefficient of Variation 16.7 % (11.5-14.5); RDW Standard Deviation 55.3 fL (36.4-46.3); Red Blood Count 3.52 M/uL (4.7-6.1); White Blood Count 10.02 K/uL (4.8-10.8)
[2019-06-07 18:29] LABS: Mean Corpuscular Hgb Conc 32.2 g/dL (32-36)
[2019-06-07 18:47] LABS: Basophils # (auto) 0.05 K/uL (0-0.2); Basophils % (auto) 0.5 %; Eosinophils # (auto) 0.08 K/uL (0-0.5); Eosinophils % (auto) 0.8 %; Immature Granulocytes # (auto) 0.05 K/uL (0.00-0.02); Immature Granulocytes % (auto) 0.5 %; Lymphocytes # (auto) 1.14 K/uL (1.2-3.4); Lymphocytes % (auto) 11.4 %; Monocytes # (auto) 1.21 K/uL (0.11-0.59); Monocytes % (auto) 12.1 %; Neutrophils # (auto) 7.49 K/uL (1.4-6.5); Neutrophils % (auto) 74.7 %
[2019-06-07] MEDS: PANTOprazole 40 MG TAB PO SCH (20:55)
[2019-06-08] MEDS: CEFEPIME 2,000 MG in SYRINGE 7.5 ML IV SCH (00:03)
[2019-06-08] MEDS: OXYCODONE HCL IR 5 MG TAB (IMMEDIATE RELEASE) PO PRN (01:17)
== END 2019-06-08 02:36 | disposition short-term general hospital (02) | DRG 872 ==
LOC: ED 20:43 → SUATTDRO 05-26 01:25 → 2E 05-26 01:25 → 1E 05-31 03:47 → 2E 06-02 12:04

== ENCOUNTER 2019-06-23 11:44 | Inpatient (IN) ==
[2019-06-23 12:10] LABS: Basophils # (auto) 0.02 K/uL (0-0.2); Basophils % (auto) 0.3 %; Eosinophils # (auto) 0.25 K/uL (0-0.5); Eosinophils % (auto) 4.1 %; Hematocrit (blood only) 33.1 % (42-52); Hemoglobin 10.7 g/dL (14.0-18.0); Immature Granulocytes # (auto) 0.03 K/uL (0.00-0.02); Immature Granulocytes % (auto) 0.5 %; Lymphocytes # (auto) 0.51 K/uL (1.2-3.4); Lymphocytes % (auto) 8.3 %; Mean Corpuscular Hemoglobin 29.1 pg (25-34); Mean Corpuscular Hgb Conc 32.3 g/dL (32-36); Mean Corpuscular Volume 89.9 fL (80-100); Mean Platelet Volume 9.3 fL (7.4-10.4); Monocytes # (auto) 0.79 K/uL (0.11-0.59); Monocytes % (auto) 12.9 %; Neutrophils # (auto) 4.52 K/uL (1.4-6.5); Neutrophils % (auto) 73.9 %; Platelet Count 257 K/uL (130-400); RDW Coefficient of Variation 15.6 % (11.5-14.5); RDW Standard Deviation 51.1 fL (36.4-46.3); Red Blood Count 3.68 M/uL (4.7-6.1); White Blood Count 6.12 K/uL (4.8-10.8)
[2019-06-23] MEDS ORDERED: 0.2 MICRON FILTER SET 1 EA IV ONE (12:13)
[2019-06-23] MEDS ORDERED: AMIODARONE / D5W 360 MG/200 ML BAG IV SCH (12:15)
[2019-06-23 12:22] LABS: INR 1.3 (0.9-1.1); Prothrombin Time 12.8 Seconds (9.0-12.0)
[2019-06-23 12:31] LABS: Alanine Aminotransferase 23 U/L (12-78); Albumin Level 2.6 gm/dl (3.4-5.0); Aspartate Aminotransferase 19 U/L (15-37); BUN Creatinine Ratio 26.6 (10-20); Blood Urea Nitrogen 48 mg/dl (7-18); Calcium 8.7 mg/dl (8.5-10.1); Carbon Dioxide 30 mmol/L (21-32); Chloride 97 mmol/L (98-107); Creatinine Clr Calc Pharmacy 74.9 ml/min; Est GFR (African American) 47.7; Est GFR (Non-African American) 41.2; Glucose 163 mg/dl (70-99); Magnesium 1.8 mg/dl (1.8-2.4); Potassium 3.2 mmol/L (3.5-5.1); Sodium 134 mmol/L (136-145)
--- NOTE | 2019-06-23 12:32 | XRay Report ---
XR chest 1V portable HISTORY: palpitations COMPARISON: Chest 05/31/2019. FINDINGS: No pneumothorax. Trace bilateral pleural effusions. The heart remains enlarged. There is di ffuse interstitial vascular thickening consistent with mild congestive change. This is similar to the prior study. No new focal lung consolidations to suggest pneumonia. Left-sided pacemaker/defibrillat or is again noted. A right central venous catheter terminates at the superior cavoatrial junction. Th e tip is partially excluded by the pacemaker wire. IMPRESSION: No significant change in the cardiomegaly, trace bilateral pleural effusions, and mild congestive devan nge. ACT 112: Negative or not required by law. Electronically signed by: Huey Thorne M.D. 06/23/2019 12:30 PM
[2019-06-23 12:36] LABS: Albumin Globulin Ratio 0.4 (0.9-2); Alkaline Phosphatase 142 U/L (45-117); Bilirubin,Total 0.4 mg/dl (0.2-1); Globulin 6.3 gm/dl (2.5-4.0); NT Pro B Type Natriuretic Pept 647 pg/ml (0-900); Total Protein 8.9 gm/dl (6.4-8.2); Troponin I < 0.015 ng/ml (0-0.045)
--- NOTE | 2019-06-23 12:52 | Cardiology Consultation ---
Date of Consultation June 23, 2019 Assessment & Plan (1) Ischemic cardiomyopathy: History of Present Illness Reason for Consultation: Sustained ventricular tachycardia History of Present Illness Patient is a very complex 53-year-old male with ongoing issues which include 1. Ischemic cardiomyopathy EF 35-39% 2. Remote silent myocardial infarction with chronic LAD and LAD diagonal occlusion moderate diffuse coronary atherosclerosis 3. Chronic systolic heart failure, compensated 4. Status post pacer defibrillator implantation 2012 generator exchange March 2019 Medtronic model Visia AF MRI VR [id number] 5. Paroxysmal wide-complex tachycardia, ventricular and atrial flutter aberrancy 6. Morbid obesity 7. Obstructive sleep apnea on CPAP supplementation type 2 diabetes mellitus 8. Type 2 diabetes mellitus insulin requiring Patient presents now after outpatient visit today found patient to be in wide- complex tachycardia. Clinical course is notable for recent hospitalizations with gram-positive sepsis with indwelling catheter in place and patient receiving IV antibiotics to be completed in 2 days time. His initial evaluation was in this hospital in transfer to [facility] in [place]. While there antiarrhythmic therapy was discontinued (amiodarone) and metoprolol increased. Chronic potassium replacement was discontinued and losartan reduced due to acute renal insufficiency. Patient presented for routine appointment today. Had been aware of occasional flushing sensations but no tachypalpitations dizziness or lightheadedness. No chest pains or discomfort. No worsening edema orthopnea. Had had 1 days episode of nausea and emesis which spontaneously resolved. Notes no bleeding difficulties melena medication dysuria hematuria. Patient was noted to be tachycardic during visit and EKG demonstrated wide-complex tachycardia. He is transferred via ambulance to this institution with patient spontaneously converting to sinus rhythm after 100 mg IV bolus of amiodarone. Patient is currently comfortable without complaint. Notes no change in sleep habits or difficulties. Has been taking medications as prescribed. Weight is stable to slightly down from past hospitalizations. Overall exercise capacity had been gradually increasing Allergies Allergy/AdvReac Type Severity Reaction Status Date / Time benzonatate AdvReac Intermediate choking, Verified 06/23/19 12:10 gagging Home Medications Home Medications Medication Instructions Recorded Confirmed Type aspirin 81 mg tablet,delayed 81 mg PO QAM 12/21/17 06/23/19 History release bumetanide 1 mg tablet 1 mg PO BID 12/21/17 06/23/19 History fluticasone propionate 50 2 sprays INTNAS BID gm 12/21/17 06/23/19 History mcg/actuation nasal spray,suspension levothyroxine 100 mcg capsule 100 mcg PO QAM 12/21/17 06/23/19 History magnesium oxide 400 mg PO QAM cap 12/21/17 06/23/19 History metolazone 5 mg tablet 5 mg PO 3XWK tab 12/21/17 06/23/19 History mometasone-formoterol HFA 200 2 puffs INH BID 12/21/17 06/23/19 History mcg-5 mcg/actuation aerosol inhaler nitroglycerin 0.4 mg sublingual 0.4 mg SL Q5M PRN 12/21/17 06/23/19 History tablet omeprazole 20 mg capsule,delayed 20 mg PO HS 12/21/17 06/23/19 History release tramadol 50 mg tablet 50 mg PO Q6H PRN 12/21/17 06/23/19 History Trulicity 1.5 mg SQ TH 12/23/18 06/23/19 History ergocalciferol (vitamin D2) 50,000 unit PO TU 04/12/19 06/23/19 History gabapentin 300 mg PO TID 04/12/19 06/23/19 History hyoscyamine sulfate [Levsin] 0.125 mg PO TID 04/12/19 06/23/19 History insulin aspart U-100 100 unit/mL 300 units CONTINUOUS SUBCUTANEOUS 06/16/19 06/23/19 History subcutaneous solution INFUSION .COMPLEX ml losartan 25 mg tablet 12.5 mg PO QAM tab 06/16/19 06/23/19 History metoprolol tartrate 100 mg tablet 100 mg PO QAM tab 06/16/19 06/23/19 History ceftriaxone 2 gram intravenous 2 gm IV Q24H 06/20/19 06/23/19 History solution oxycodone 10 mg PO Q4H PRN 06/23/19 06/23/19 History spironolactone 25 mg PO QAM 06/23/19 06/23/19 History Patient History Medical History Asthma Bacteremia due to group B Streptococcus Cardiac defibrillator in situ CKD (chronic kidney disease) stage 3, GFR 30-59 ml/min Diabetes mellitus with diabetic polyneuropathy Dyslipidemia GERD (gastroesophageal reflux disease) HTN (hypertension) Hx of myocardial infarction Hx of osteomyelitis Hypothyroid (Chronic) Ischemic cardiomyopathy (Chronic) Lymphedema Morbid obesity NINA on CPAP Peripheral arterial disease Peripheral edema Chronic B/L Statin intolerance (Inactive) Venous insufficiency of both lower extremities Ventricular tachycardia Surgical History H/O shoulder surgery History of colonoscopy History of sinus surgery Hx of amputation of lesser toe Hx of tonsillectomy Family History Sister Family history of diabetes mellitus 2 Grandmother (Maternal) Family history of diabetes mellitus Grandfather (Maternal) Family history of diabetes mellitus Other No family history of adverse response to anesthesia Social History Preferred Language: [place] Communication Ability: Effective Automobile Designer Required: No Beliefs That Will Affect Care: None Current Living Situation: Spouse Other Information That Helps Us Care for You: No Feels Safe at Home: Yes Safety Concerns: Feels Safe At This Time Smoking Status: Never smoker Second Hand Exposure: Yes (/parents smoke) ; Hx Alcohol Use: Yes Alcohol type: hard liquor Hx Substance Use: No Review of Systems Review of Systems: All systems reviewed & are unremarkable except as noted in HPI & below Physical Exam Constitutional: WD/WN, vitals as above + morbidly obese Eyes: PERRL, conjunctivae normal, anicteric sclerae ENMT: external ear and nose normal, oropharynx normal Neck: trachea midline, no thyromegaly + thick neck Respiratory: Auscultation: + diminished lung sounds (But predominantly clear) Cardiovascular: Rate/Rhythm: regular rate and regular rhythm Heart Sounds: normal S1 and normal S2; no gallop and no murmur Palpation: normal PMI Vessels: normal carotid upstroke and radial pulses present; no JVD and no carotid bruit Extremities: + edema (Chronic lymphedematous changes bilateral lower extremity, 3+) Gastrointestinal (Abdomen): normal bowel sounds, soft, nontender, no hepatosplenomegaly Musculoskeletal: no cyanosis or clubbing, extremities motor strength 5/5 Skin: no rashes, warm and dry Neurologic: PERRL, EOMI, accommodation nl, no face palsy, no dysarthria Psychiatric: A+Ox3, euthymic affect Results & Data (MN) Vital Signs (Past 12 Hours) Vital Signs Temp Pulse Resp BP Pulse Ox 06/23/19 12:01 66 143/77 H 99 06/23/19 11:50 36.7 C 124 H 15 117/75 98 Laboratory Results Laboratory Results - last 24 hr 06/23/19 06/23/19 06/23/19 12:00 12:00 12:00 WBC 6.12 RBC 3.68 L Hgb 10.7 L Hct 33.1 L MCV 89.9 MCH 29.1 MCHC 32.3 RDW Std Deviation 51.1 H RDW Coeff of Мария 15.6 H Plt Count 257 MPV 9.3 Immature Gran % (Auto) 0.5 Neut % (Auto) 73.9 Lymph % (Auto) 8.3 [place] % (Auto) 12.9 Eos % (Auto) 4.1 Baso % (Auto) 0.3 Immature Gran # (Auto) 0.03 H Neut # (Auto) 4.52 Lymph # (Auto) 0.51 L [place] # (Auto) 0.79 H Eos # (Auto) 0.25 Baso # (Auto) 0.02 PT 12.8 H INR 1.3 H Sodium 134 L Potassium 3.2 L Chloride 97 L Carbon Dioxide 30 Anion Gap 7.0 BUN 48 H Creatinine 1.81 H Est Cr Clr Drug Dosing 74.9 Est GFR ( Amer) 47.7 Est GFR (Non-Af Amer) 41.2 BUN/Creatinine Ratio 26.6 H Glucose 163 H Calcium 8.7 Magnesium 1.8 Total Bilirubin 0.4 AST 19 ALT 23 Alkaline Phosphatase 142 H Troponin I < 0.015 NT-Pro-B Natriuret Pep 647 Total Protein 8.9 H Albumin 2.6 L Globulin 6.3 H Albumin/Globulin Ratio 0.4 L Diagnostic Findings Cardiac catheterization 06/09/2019 Location: [facility] [place] Date of Procedure: 06/09/2019 Pre-op Diagnosis: Monomorphic VT Post-op Diagnosis: Coronary artery disease Procedure: Coronary angiography Readiness Paraprofessional: Dr. Melton Library Media Assistant(s): Dr. Dawson Anesthesia: Monitored local anesthesia with sedation Additional Findings: LAD and D1 are 100% occluded and filling retrogradely from a left to left collaterals Proximal Ramus has 30% proximal lesion and 20% diffuse disease distally that's hemodynamically insignificant Mid Circumflex has 60% stenosis pOM1 has 70% stenosis pRCA has 30% stenosis mRCA has 50% stenosis Proximal right PDA has 70% stenosis, slightly worse that prior cath The coronaries are co-dominant Complications: none Condition of patient: Stable Recommendations: Lesions in the coronaries are not significantly changed when compared to the Cath in 2011. Do not appear to be any unstable lesions at this time.
[2019-06-23] MEDS ORDERED: TRAMADOL HCL 50 MG TABLET PO PRN (13:41)
[2019-06-23] MEDS ORDERED: ACETAMINOPHEN 325 MG TAB PO PRN (13:41)
[2019-06-23] MEDS ORDERED: OXYCODONE HCL IR 5 MG TAB (IMMEDIATE RELEASE) PO PRN (13:41)
[2019-06-23] MEDS ORDERED: NON-FORMULARY MEDICATION (Ceftriaxone 2 GM) IV SCH (13:45)
[2019-06-23] MEDS ORDERED: INSULIN ASPART PER UNIT SQ SCH (13:45)
[2019-06-23] MEDS ORDERED: GLUCAGON FOR INJ 1 MG VIAL SQ PRN (14:00)
[2019-06-23] MEDS ORDERED: GLUCOSE 40% GEL 15 GM TUBE PO PRN (14:00)
[2019-06-23] MEDS ORDERED: GLUCOSE 10 TABS/TUBE PO PRN (14:00)
[2019-06-23] MEDS ORDERED: DEXTROSE 50% 50 ML SYRINGE IV PRN (14:00)
[2019-06-23] MEDS ORDERED: INSULIN ASPART 100 UNITS/ML VIAL SC PRN (14:00)
[2019-06-23] MEDS ORDERED: CARBOHYDRATES FOR HYPOGLYCEMIA PO PRN (14:00)
[2019-06-23] MEDS: POTASSIUM CHLORIDE 20 MEQ TABCR PO SCH ×2 (14:40→20:31)
[2019-06-23] MEDS ORDERED: METOPROLOL TARTRATE 1 MG/ML VIAL IV STA (14:46)
[2019-06-23] MEDS ORDERED: METOPROLOL TARTRATE 1 MG/ML VIAL IV ONE (14:49)
--- NOTE | 2019-06-23 14:58 | History & Physical Report ---
Date of Service June 23, 2019 Assessment & Plan (1) Sustained VT (ventricular tachycardia): -Admit to telemetry -Patient presenting by referral of outpatient oil and gas drafter after he was found to be in sustained wide-complex tachycardia/V. tach with rates in the 120s -Recent hospitalization for management of RLE cellulitis, group B streptococcus bacteremia, V. tach as outlined in HPI; amiodarone discontinued secondary to patient's age and consideration for future initiation of sotalol and/or V. tach ablation, metoprolol adjusted to 100 mg daily -Received amiodarone bolus for EMS, spontaneously converted to NSR in ED -Started on amiodarone drip, will continue -Continue oral metoprolol -[place] [facility] [place] show evidence of acute ischemia -Hypokalemia noted, K+ 3.2; supplementation ordered (noted routine potassium supplementation discontinued during [facility] [place] [place] due to renal insufficiency); Mg+ 1.8 -Cardiology consult (2) Bacteremia due to group B Streptococcus: (3) Cellulitis of right leg: -Currently on IV ceftriaxone, last dose scheduled for tomorrow -Had TDC placed which likely can be removed once IV antibiotics are completed. Will need to be removed under IR at [facility]. -Patient follows at the wound care center for RLE cellulitis/wounds, will consult while inpatient (4) Ischemic cardiomyopathy: (5) Cardiac defibrillator in situ: -EF 30 to 39% -Management of V. tach as above -Continue aspirin, beta-noy, ARB; patient statin intolerant -Volume status acceptable, continue spironolactone (6) Asthma: -No signs of acute exacerbation -Continue home inhalers (7) HTN (hypertension): -BP currently controlled -Continue metoprolol and losartan (8) NINA on CPAP: -CPAP as per home settings (9) CKD (chronic kidney disease) stage 3, GFR 30-59 ml/min: - baseline creat runs in the high ones to low twos - creat noted to be 1.8 today - continue to monitor, avoid nephrotoxic agents when able (10) DVT prophylaxis: -SQ heparin History of Present Illness Chief Complaint: Palpitations Primary Care Provider: Sherry Maya DO 53-year-old male who was sent to the ED by referral outpatient oil and gas drafter for evaluation of wide-complex tachycardia/V. tach. Patient recently admitted to [facility] 05/26-06/07 for management of sepsis due to right lower extremity cellulitis and group B strep bacteremia, ventricular tachycardia. Patient was transferred [place] [facility] [place] management [place]07 and discharged on 06/14. While at [facility] patient was treated with IV amiodarone and required emergent cardioversion on 05/31/2019 for V. tach. His previously placed AICD VT zone was reprogrammed. [place] [facility] [place] patient was treated IV amiodarone and lidocaine infusions. He was also given IV diuresis for congestive heart failure. Repeat cardiac cath demonstrated no major changes compared to cardiac cath in 2010. At discharge [place] [facility] [place], metoprolol succinate was titrated to 100 mg daily and amiodarone was discontinued per electrophysiology recommendations. EP suggested possible future addition of sotalol and/or VT ablation. Losartan was decreased to 12.5 mg daily due to hypotension and CHATO. Potassium supplementation was discontinued. For treatment of group B strep bacteremia, ID recommended IV ce ftriaxone for a total of 14 days of therapy. Patient underwent TDC placement. Nephrology recommended against a PICC line in the event patient needed a fistula for future dialysis. Patient presented to outpatient oil and gas drafter today for routine follow-up visit. While in the waiting room, he developed palpitations. EKG was obtained showing V. tach at a rate of 125 bpm. Patient was transferred to the ED for further evaluation. Patient denies any associated chest pain, ICD discharges, syncopal events. A couple of days ago, had some nausea and vomiting. Denies hematemesis and coffee-ground emesis. Denies diarrhea. No fevers or chills. Reports that right lower extremity cellulitis is healing well. No surrounding erythema or drainage from right chest TDC. Denies any urinary symptoms. Patient reports he weighs himself on a daily basis and weights have been stable. No orthopnea. In route to the ED, patient received amiodarone bolus for EMS. He subsequently converted to NSR upon arrival to the ED. Labs show K+ 3.2, otherwise unremarkable/at patient's baseline. Patient was started on amiodarone drip. Allergies Allergy/AdvReac Type Severity Reaction Status Date / Time benzonatate AdvReac Intermediate choking, Verified 06/23/19 12:10 gagging Home Medications Home Medications Medication Instructions Recorded Confirmed Type aspirin 81 mg tablet,delayed 81 mg PO QAM 12/21/17 06/23/19 History release bumetanide 1 mg tablet 1 mg PO BID 12/21/17 06/23/19 History fluticasone propionate 50 2 sprays INTNAS BID gm 12/21/17 06/23/19 History mcg/actuation nasal spray,suspension levothyroxine 100 mcg capsule 100 mcg PO QAM 12/21/17 06/23/19 History magnesium oxide 400 mg PO QAM cap 12/21/17 06/23/19 History metolazone 5 mg tablet 5 mg PO 3XWK tab 12/21/17 06/23/19 History mometasone-formoterol HFA 200 2 puffs INH BID 12/21/17 06/23/19 History mcg-5 mcg/actuation aerosol inhaler nitroglycerin 0.4 mg sublingual 0.4 mg SL Q5M PRN 12/21/17 06/23/19 History tablet omeprazole 20 mg capsule,delayed 20 mg PO HS 12/21/17 06/23/19 History release tramadol 50 mg tablet 50 mg PO Q6H PRN 12/21/17 06/23/19 History Trulicity 1.5 mg SQ TH 12/23/18 06/23/19 History ergocalciferol (vitamin D2) 50,000 unit PO TU 04/12/19 06/23/19 History gabapentin 300 mg PO TID 04/12/19 06/23/19 History hyoscyamine sulfate [Levsin] 0.125 mg PO TID 04/12/19 06/23/19 History insulin aspart U-100 100 unit/mL 300 units CONTINUOUS SUBCUTANEOUS 06/16/19 06/23/19 History subcutaneous solution INFUSION .COMPLEX ml losartan 25 mg tablet 12.5 mg PO QAM tab 06/16/19 06/23/19 History metoprolol tartrate 100 mg tablet 100 mg PO QAM tab 06/16/19 06/23/19 History ceftriaxone 2 gram intravenous 2 gm IV Q24H 06/20/19 06/23/19 History solution oxycodone 10 mg PO Q4H PRN 06/23/19 06/23/19 History spironolactone 25 mg PO QAM 06/23/19 06/23/19 History Past Med/Surg History Medical History Asthma Bacteremia due to group B Streptococcus Cardiac defibrillator in situ CKD (chronic kidney disease) stage 3, GFR 30-59 ml/min Diabetes mellitus with diabetic polyneuropathy Dyslipidemia GERD (gastroesophageal reflux disease) HTN (hypertension) Hx of myocardial infarction Hx of osteomyelitis Hypothyroid (Chronic) Ischemic cardiomyopathy (Chronic) Lymphedema Morbid obesity NINA on CPAP Peripheral arterial disease Peripheral edema Chronic B/L Statin intolerance (Inactive) Venous insufficiency of both lower extremities Ventricular tachycardia Surgical History H/O shoulder surgery History of colonoscopy History of sinus surgery Hx of amputation of lesser toe Hx of tonsillectomy Family History Sister Family history of diabetes mellitus 2 Grandmother (Maternal) Family history of diabetes mellitus Grandfather (Maternal) Family history of diabetes mellitus Other No family history of adverse response to anesthesia Social History Preferred Language: Greek Communication Ability: Effective Skimmer Required: No Beliefs That Will Affect Care: None Current Living Situation: Spouse Other Information That Helps Us Care for You: No Feels Safe at Home: Yes Safety Concerns: Feels Safe At This Time Smoking Status: Never smoker Second Hand Exposure: Yes (/parents smoke) ; Hx Alcohol Use: Yes Alcohol type: hard liquor Hx Substance Use: No Review of Systems Review of Systems: ROS per HPI, all other systems reviewed and negative Physical Exam Constitutional: WD/WN, vitals as above + obese Eyes: PERRL, conjunctivae normal, anicteric sclerae ENMT: external ear and nose normal, oropharynx normal Respiratory: normal respiratory effort, lungs clear to auscultation Cardiovascular: Rate/Rhythm: regular rate and regular rhythm Vessels: normal peripheral pulses Extremities: + edema (lymphedema BLLE, at baseline per patient) Gastrointestinal (Abdomen): normal bowel sounds, soft, nontender, no hepatosplenomegaly Musculoskeletal: no cyanosis or clubbing, extremities motor strength 5/5 Skin: no rashes, warm and dry dressing in place to RLE Neurologic: PERRL, EOMI, accommodation nl, no face palsy, no dysarthria Psychiatric: A+Ox3, euthymic affect Results & Data Vital Signs (Past 12 Hours) Vital Signs Temp Pulse Resp BP BP Pulse Ox 06/23/19 13:46 37.1 C 18 112/55 L 98 06/23/19 13:42 65 06/23/19 13:10 68 20 126/63 95 06/23/19 12:43 78 107/56 L 94 06/23/19 12:31 68 125/81 96 06/23/19 12:01 66 143/77 H 99 06/23/19 11:50 36.7 C 124 H 15 117/75 98 Laboratory Results Short CBC 06/23/19 06/23/19 Range/Units 12:00 12:00 WBC 6.12 (4.8-10.8) K/uL Hgb 10.7 L (14.0-18.0) g/dL Hct 33.1 L (42-52) % Plt Count 257 (130-400) K/uL Creatinine 1.81 H (0.6-1.4) mg/dl BMP 06/23/19 12:00 Sodium 134 L Potassium 3.2 L Chloride 97 L Carbon Dioxide 30 BUN 48 H Creatinine 1.81 H Glucose 163 H Calcium 8.7 Cardiac Enzymes 06/23/19 Range/Units 12:00 Troponin I < 0.015 (0-0.045) ng/ml Liver Function 06/23/19 Range/Units 12:00 Total Bilirubin 0.4 (0.2-1) mg/dl AST 19 (15-37) U/L ALT 23 (12-78) U/L Alkaline Phosphatase 142 H (45-117) U/L Albumin 2.6 L (3.4-5.0) gm/dl Diagnostic Findings CXR IMPRESSION: No significant change in the cardiomegaly, trace bilateral pleural effusions, and mild congestive change. Code Status & VTE Plan VTE Prophylaxis Plan VTE Prophylaxis will be ordered: Yes Supervising Physician Co-Signing Physician Notes Care coordinated with Candice Villar CRNP. Agree with above note. Patient seen and examined. Please refer to her notes for full details. Vital signs reviewed. Physical exam: General exam: Alert and oriented. Not in acute distress. CVS: S1 and S2 heard, regular rate and rhythm, no murmurs. RS: Clear to auscultation, no wheezing or crackles. ABD: Soft, bowel sounds present, nontender, no distention. NEON SIGN MAKER: Nonfocal. EXT: No edema, no erythema. Labs: Reviewed. Assessment and plan: 53M with hx of V tach s/p AICD, recently in hospital for Streptococcus bacteremia on Iv rocephin last dose tomorrow., rt lower extremity cellulitis, and was having v tach and was transferred to [place] . required iv amiodarone and lidocaine drips. But at discharge amiodarone was stopped and plan for future sotalol/V.Ablation. Presented to out patient cardiology clinic with palpitations and found to be in v tach. Started on amiodarone bolus and drip. In the ER was in regular rhythm but on the floor again he went to wide complex tachycardia. A dose of iv lopressor is given. Given po potassium for hypokalemia. A dose of iv magnesium is given.Cardiology following. Po amiodarone was added to drip. Close monitor.Wound care consult for right lower extremity infection. Other diagnosis and plan of care as per Candice Villar.. Fei asencio MD.
[2019-06-23] MEDS ORDERED: MAGNESIUM SULFATE / D5W 1 GM/100 ML BAG IV ONE (15:15)
[2019-06-23] MEDS: GABAPENTIN 300 MG CAP PO SCH ×2 (16:21→20:32)
[2019-06-23] MEDS: cefTRIAXone SODIUM 2,000 MG in DEXTROSE 5% 50 ML IV SCH (16:22)
[2019-06-23] MEDS: HYOSCYAMINE SULFATE 0.125 MG TAB PO SCH ×2 (16:22→20:32)
[2019-06-23] MEDS: BUMETANIDE 1 MG TAB PO SCH (16:23)
[2019-06-23] MEDS: AMIODARONE 200 MG TAB PO SCH (18:09)
[2019-06-23] MEDS: AMIODARONE / D5W 360 MG/200 ML BAG IV SCH (18:14)
[2019-06-23] MEDS: NovoLOG INSULIN PUMP SCH ×2 (19:11→19:15)
--- NOTE | 2019-06-23 19:15 | Electrocardiogram Report ---
Test Reason : Blood Pressure : / mmHG Vent. Rate : 066 BPM Atrial Rate : 066 BPM P-R Int : 190 ms QRS Dur : 102 ms QT Int : 418 ms P-R-T Axes : 016 016 062 degrees QTc Int : 438 ms Normal sinus rhythm with sinus arrhythmia Poor R wave progression, consider anterior [place] vs. lead placement vs. LVH Possible Lateral infarct , age undetermined Abnormal ECG When compared with ECG of 31-MAY-2019 05:48, Borderline criteria for Lateral infarct are now Present Confirmed by Nader Mcpherson ([id number]) on 06/23/2019 7:15:07 PM Referred By: REFERRED SELF Confirmed By:Austin Mcpherson
[2019-06-23] MEDS ORDERED: PHARMACY GLYCEMIC MGMT CONSULT PRN (20:03)
--- NOTE | 2019-06-23 20:14 | Pharmacy Report ---
Pharmacy Glycemic Short Note 2 - Date of Service June 23, 2019 - Glycemic Short BSG Results (Last 24 hours): 06/23/19 06/23/19 12:00 16:16 Glucose 163 H POC Glucose 203 H OUTPATIENT ANTIDIABETIC REGIMEN: * Novolog Pump ASSESSMENT: * Mr Lyle is a 53 y/o M familiar to the glycemic service. He presented earlier today with cardiac problems. Currently ordered a diet awaiting cardiology consult. * Patient is not able to refill his pump. Start basal bolus per his request. * Based upon previous data, patient requires ~60 units/day. Will give this as a one time dose as a "load" since patient will be starting with no Lantus. Give Lantus 32 units SQ BID starting tomorrow. * Start Novolog based upon previous parameters that produced adequate BSGs. PLAN FOR INPATIENT GLYCEMIC CONTROL: * Basal insulin * Lantus 60 units SQ x 1 then 32 units SQ BID * Bolus insulin * NovoLog per scale ACHS or Q6hrs while NPO * Goal Range: Low 110 mg/dL - High 140 mg/dL * Correction Factor: 12 mg/dL/unit * Nutritional / Prandial insulin per carb ratio of 1 unit per 4 grams CHO consumed
[2019-06-23] MEDS ORDERED: INSULIN GLARGINE SOLOSTAR 100 UNITS/ML 3 ML PEN SC ONE (20:30)
[2019-06-23] MEDS: PANTOprazole 40 MG TAB PO SCH (20:33)
[2019-06-23] MEDS: INSULIN ASPART 100 UNITS/ML 3 ML PEN SC SCH (21:10)
[2019-06-23] MEDS: HEPARIN SOD 5,000 UNIT/0.5 ML VIAL SQ SCH (21:11)
[2019-06-24] MEDS ORDERED: POLYETHYLENE (MIRALAX) 17 GM PACK PO PRN (05:12)
[2019-06-24] MEDS: HEPARIN SOD 5,000 UNIT/0.5 ML VIAL SQ SCH ×3 (05:37→19:32)
[2019-06-24] MEDS: AMIODARONE / D5W 360 MG/200 ML BAG IV SCH (05:37)
[2019-06-24] MEDS: LEVOTHYROXINE SODIUM 100 MCG TABLET PO SCH (05:39)
[2019-06-24 05:53] LABS: Hematocrit (blood only) 33.7 % (42-52); Hemoglobin 10.9 g/dL (14.0-18.0); Mean Corpuscular Hemoglobin 29.1 pg (25-34); Mean Corpuscular Hgb Conc 32.3 g/dL (32-36); Mean Corpuscular Volume 89.9 fL (80-100); Mean Platelet Volume 9.3 fL (7.4-10.4); Platelet Count 278 K/uL (130-400); RDW Coefficient of Variation 15.7 % (11.5-14.5); RDW Standard Deviation 51.6 fL (36.4-46.3); Red Blood Count 3.75 M/uL (4.7-6.1)
[2019-06-24 06:32] LABS: BUN Creatinine Ratio 25.7 (10-20); Blood Urea Nitrogen 46 mg/dl (7-18); Calcium 8.6 mg/dl (8.5-10.1); Carbon Dioxide 30 mmol/L (21-32); Chloride 98 mmol/L (98-107); Creatinine Clr Calc Pharmacy 78.2 ml/min; Est GFR (African American) 48.4; Est GFR (Non-African American) 41.7; Glucose 200 mg/dl (70-99); Magnesium 2.2 mg/dl (1.8-2.4); Potassium 3.5 mmol/L (3.5-5.1); Sodium 133 mmol/L (136-145)
[2019-06-24 06:37] LABS: Troponin I < 0.015 ng/ml (0-0.045)
--- NOTE | 2019-06-24 07:20 | Hospitalist Progress Note ---
Date of Service June 24, 2019 Assessment & Plan (1) Sustained VT (ventricular tachycardia): -Patient sent in by outpatient insurance law specialist after he was found to be in sustained wide-complex tachycardia/V. tach with rates in the 120s -Recent hospitalization for management of RLE cellulitis, group B streptococcus bacteremia, V. tach as outlined in HPI; amiodarone discontinued secondary to patient's age and consideration for future initiation of sotalol and/or V. tach ablation, metoprolol adjusted to 100 mg daily -Received amiodarone bolus for EMS, spontaneously converted to NSR in ED -On amiodarone drip -Continue oral metoprolol -Recent cardiac cath at [facility] did not show evidence of acute ischemia -Hypokalemia noted -Cardiology to see (2) Bacteremia due to group B Streptococcus: (3) Cellulitis of right leg: -Currently on IV ceftriaxone, last dose scheduled for today -Had TDC placed which likely can be removed once IV antibiotics are completed. Will need to be removed under IR at [facility]. -Patient follows at the wound care center for RLE cellulitis/wounds, will consult while inpatient (4) Ischemic cardiomyopathy: AICD in Place (5) Cardiac defibrillator in situ: -EF 30 to 39% -Management of V. tach as above -Continue aspirin, beta-noy, ARB; patient statin intolerant -Volume status acceptable, continue spironolactone (6) Asthma: -No signs of acute exacerbation -Continue home inhalers (7) HTN (hypertension): -BP currently controlled -Continue metoprolol and losartan (8) NINA on CPAP: -CPAP as per home settings (9) CKD (chronic kidney disease) stage 3, GFR 30-59 ml/min: - continue to monitor, avoid nephrotoxic agents when able (10) DVT prophylaxis: -SQ heparin Labs Checked ROS-No Headache, No Visual Changes, No Nausea, No Vomiting, No Fever, No Chills, No Neck Pain or Stiffness, No Chest Pain, No Palpitations, No SOB, No RINALDI, No Cough, No Sputum, No Wheezing, No Abdominal Pain, No Diarrhea, No Hematemesis, No Hemoptysis, No Unexpected Weight Loss, No Flank pain, No Melena, No Hematochezia, No Frequency, No Urgency, No Burning, No Hematuria, No Rashes, No Diaphoresis. Appetite is Normal, C/O Upset Stomach Physical Exam Gen-AAO x 3, NAD, Afebrile Head-NCAT, EOMI, PERRLA, Anicteric Sclera, No Posterior Pharyngeal Erythema Neck-Supple, No JVD, No Thyromegaly, No Masses, No LAD, No Bruits Lungs-Clear to Auscultation Bilaterally, No Rales, No Rhonchi, No Wheezing, No Crepitus Chest-No S4, +S1, +S2, No S3, No Murmurs, No Rubs, No Gallops, No Ectopy Abdomen-Soft, Bowel Sounds Present, Non Tender, Non Distended, No Hepatomegaly, No Splenomegaly, No Palpable Masses, No Rebound, No Rigidity, No Guarding Musculoskeletal-Full Range of Motion Bilaterally, No CVAT Extremities-No Cyanosis, No Clubbing, No Edema Nuero-Cranial Nerves II-XII grossly intact, Motor WNL, DTRs WNL, Strength WNL, Non Focal Psych-Normal Mood Admission and Anticipated Discharge Date Admission Date: June 23, 2019 Results & Data ([facility]) Vital Signs (Past 12 Hours) Vital Signs Temp Pulse Pulse Resp BP Pulse Ox 06/24/19 03:18 36.4 C L 59 L 16 103/54 L 95 06/24/19 00:53 60 06/23/19 23:41 95/61 L 06/23/19 23:35 85/63 L 06/23/19 23:33 36.9 C 128 H 16 71/55 L 96 06/23/19 20:00 58 L 107/57 L 06/23/19 19:16 36.8 C 124 H 19 105/73 97
[2019-06-24] MEDS: INSULIN ASPART 100 UNITS/ML 3 ML PEN SC SCH ×3 (08:04→17:59)
[2019-06-24] MEDS: GABAPENTIN 300 MG CAP PO SCH ×3 (08:08→19:30)
[2019-06-24] MEDS: AMIODARONE 200 MG TAB PO SCH ×5 (08:08→19:30)
[2019-06-24] MEDS: FLUTICASONE/VILANTEROL 200/25MCG 14 PUFFS/INHALER INH SCH (08:09)
[2019-06-24] MEDS: LOSARTAN POTASSIUM 25 MG TAB PO SCH (08:10)
[2019-06-24] MEDS: BUMETANIDE 1 MG TAB PO SCH ×2 (08:10→17:09)
[2019-06-24] MEDS: ASPIRIN 81 MG ECTAB PO SCH (08:11)
[2019-06-24] MEDS: HYOSCYAMINE SULFATE 0.125 MG TAB PO SCH ×3 (08:11→19:29)
[2019-06-24] MEDS: MAGNESIUM OXIDE 400 MG TAB PO SCH (08:12)
[2019-06-24] MEDS: METOPROLOL TARTRATE 100 MG TAB PO SCH (08:12)
--- NOTE | 2019-06-24 08:59 | Cardiology Progress Note ---
Date of Service June 24, 2019 Assessment & Plan (1) Sustained VT (ventricular tachycardia): Rhythm appears better controlled today on IV amiodarone Plan: Continue IV amiodarone until 1800. Increase oral amiodarone to 200 mg 4 times per day We will replace potassium today and increase Spironolactone 50 mg/day Ultimate plans will be for VT ablation with outpatient evaluation prior (2) Cardiac defibrillator in situ: Normal function on interrogation (3) Ischemic cardiomyopathy: No acute decompensation or congestive heart failure on exam plan as above (4) Venous insufficiency of both lower extremities: (5) NINA on CPAP: Continue CPAP usage (6) Hypokalemia: Hypokalemia has been presenting insult in the past additional 40 mEq potassium to be given this morning and increase in spironolactone repeat potassium level this afternoon Subjective No fevers or chills. Leg edema appears to be improving Patient seen and examined, chart, medications, telemetry reviewed. One episode of sustained ventricular tachycardia last evening at 2300 lasting 50 minutes asymptomatically. No further arrhythmias overnight. No current complaints this morning no chest pain shortness of breath dizziness or lightheadedness. Physical Exam Constitutional: WD/WN, vitals as above + morbidly obese Eyes: PERRL, conjunctivae normal, anicteric sclerae ENMT: external ear and nose normal, oropharynx normal Neck: trachea midline, no thyromegaly + thick neck Respiratory: Auscultation: + diminished lung sounds (But predominantly clear) Cardiovascular: Rate/Rhythm: regular rate and regular rhythm Heart Sounds: normal S1 and normal S2; no gallop and no murmur Palpation: normal PMI Vessels: normal carotid upstroke and radial pulses present; no JVD and no carotid bruit Extremities: + edema (Chronic lymphedematous changes bilateral lower extremity, 3+) Chest (Breasts): Chest: + pacemaker (No irritation or tenderness over pacer defibrillator) Gastrointestinal (Abdomen): normal bowel sounds, soft, nontender, no hepatosplenomegaly Musculoskeletal: no cyanosis or clubbing, extremities motor strength 5/5 Skin: no rashes, warm and dry Neurologic: PERRL, EOMI, accommodation nl, no face palsy, no dysarthria Psychiatric: A+Ox3, euthymic affect Results & Data Vital Signs (Past 12 Hours) Vital Signs Temp Pulse Pulse Resp BP Pulse Ox 06/24/19 07:55 36.9 C 24 126/61 06/24/19 03:18 36.4 C L 59 L 16 103/54 L 95 06/24/19 00:53 60 06/23/19 23:41 95/61 L 06/23/19 23:35 85/63 L 06/23/19 23:33 36.9 C 128 H 16 71/55 L 96 Laboratory Results Laboratory Results - last 24 hr 06/23/19 06/23/19 06/23/19 12:00 12:00 12:00 WBC 6.12 RBC 3.68 L Hgb 10.7 L Hct 33.1 L MCV 89.9 MCH 29.1 MCHC 32.3 RDW Std Deviation 51.1 H RDW Coeff of Мария 15.6 H Plt Count 257 MPV 9.3 Immature Gran % (Auto) 0.5 Neut % (Auto) 73.9 Lymph % (Auto) 8.3 Sharp % (Auto) 12.9 Eos % (Auto) 4.1 Baso % (Auto) 0.3 Immature Gran # (Auto) 0.03 H Neut # (Auto) 4.52 Lymph # (Auto) 0.51 L Sharp # (Auto) 0.79 H Eos # (Auto) 0.25 Baso # (Auto) 0.02 PT 12.8 H INR 1.3 H Sodium 134 L Potassium 3.2 L Chloride 97 L Carbon Dioxide 30 Anion Gap 7.0 BUN 48 H Creatinine 1.81 H Est Cr Clr Drug Dosing 74.9 Est GFR ( Amer) 47.7 Est GFR (Non-Af Amer) 41.2 BUN/Creatinine Ratio 26.6 H Glucose 163 H POC Glucose Calcium 8.7 Magnesium 1.8 Total Bilirubin 0.4 AST 19 ALT 23 Alkaline Phosphatase 142 H Troponin I < 0.015 NT-Pro-B Natriuret Pep 647 Total Protein 8.9 H Albumin 2.6 L Globulin 6.3 H Albumin/Globulin Ratio 0.4 L 06/23/19 06/23/19 06/24/19 16:16 20:42 05:31 WBC 6.50 RBC 3.75 L Hgb 10.9 L Hct 33.7 L MCV 89.9 MCH 29.1 MCHC 32.3 RDW Std Deviation 51.6 H RDW Coeff of Мария 15.7 H Plt Count 278 MPV 9.3 Immature Gran % (Auto) Neut % (Auto) Lymph % (Auto) Sharp % (Auto) Eos % (Auto) Baso % (Auto) Immature Gran # (Auto) Neut # (Auto) Lymph # (Auto) Sharp # (Auto) Eos # (Auto) Baso # (Auto) PT INR Sodium Potassium Chloride Carbon Dioxide Anion Gap BUN Creatinine Est Cr Clr Drug Dosing Est GFR ( Amer) Est GFR (Non-Af Amer) BUN/Creatinine Ratio Glucose POC Glucose 203 H 188 H Calcium Magnesium Total Bilirubin AST ALT Alkaline Phosphatase Troponin I NT-Pro-B Natriuret Pep Total Protein Albumin Globulin Albumin/Globulin Ratio 06/24/19 06/24/19 05:31 07:26 WBC RBC Hgb Hct MCV MCH MCHC RDW Std Deviation RDW Coeff of Мария Plt Count MPV Immature Gran % (Auto) Neut % (Auto) Lymph % (Auto) Sharp % (Auto) Eos % (Auto) Baso % (Auto) Immature Gran # (Auto) Neut # (Auto) Lymph # (Auto) Sharp # (Auto) Eos # (Auto) Baso # (Auto) PT INR Sodium 133 L Potassium 3.5 Chloride 98 Carbon Dioxide 30 Anion Gap 5.0 BUN 46 H Creatinine 1.79 H Est Cr Clr Drug Dosing 78.2 Est GFR ( Amer) 48.4 Est GFR (Non-Af Amer) 41.7 BUN/Creatinine Ratio 25.7 H Glucose 200 H POC Glucose 193 H Calcium 8.6 Magnesium 2.2 Total Bilirubin AST ALT Alkaline Phosphatase Troponin I < 0.015 NT-Pro-B Natriuret Pep Total Protein Albumin Globulin Albumin/Globulin Ratio
[2019-06-24] MEDS ORDERED: INSULIN GLARGINE SOLOSTAR 100 UNITS/ML 3 ML PEN SC SCH (09:00)
[2019-06-24] MEDS ORDERED: SPIRONOLACTONE 25 MG TAB PO SCH (09:00)
[2019-06-24] MEDS ORDERED: metOLazone 5 MG TABLET PO SCH (09:00)
[2019-06-24] MEDS ORDERED: POTASSIUM CHLORIDE 20 MEQ TABCR PO ONE (09:06)
[2019-06-24] MEDS ORDERED: SPIRONOLACTONE 25 MG TAB PO ONE (09:06)
--- NOTE | 2019-06-24 11:47 | Consultation ---
Date of Consultation June 24, 2019 Assessment & Plan (1) Bacteremia due to group B Streptococcus: Pt will be scheduled for petty catheter removal in OR on THURSDAY morning, if he remains inpt. If pt is discharged prior to then, our office will contact pt to schedule removal as outpt next week. Pt agreeable to this. History of Present Illness Reason for Consultation: petty catheter removal Attending Physician: Best Chase DO History of Present Illness 53 yo m with multiple medical problems, including CKD, DMII, hypothyroidism, HTN, NINA, asthma, ischemic cardiomyopathy s/p defibrillator, admitted for sustained Vtach, seen in consultation today for removal of petty catheter. Pt has been treated with IV abx via petty catheter for 2 weeks after a recent stay an [facility] for cellulitis/bacteremia. Pt with chronic wounds of RLE and follows with wound care and ID. Pt has completed his required abx and is hoping to have his catheter removed locally instead of driving back to [facility]. Pt states overall feeling well. Denies CURRY, fever, chills, chest pain, SOB, abd pain, N/V, rest pain, claudication, other complaints. Allergies Allergy/AdvReac Type Severity Reaction Status Date / Time benzonatate AdvReac Intermediate choking, Verified 06/23/19 12:10 gagging Home Medications Home Medications Medication Instructions Recorded Confirmed Type aspirin 81 mg tablet,delayed 81 mg PO QAM 12/21/17 06/23/19 History release bumetanide 1 mg tablet 1 mg PO BID 12/21/17 06/23/19 History fluticasone propionate 50 2 sprays INTNAS BID gm 12/21/17 06/23/19 History mcg/actuation nasal spray,suspension levothyroxine 100 mcg capsule 100 mcg PO QAM 12/21/17 06/23/19 History magnesium oxide 400 mg PO QAM cap 12/21/17 06/23/19 History metolazone 5 mg tablet 5 mg PO 3XWK tab 12/21/17 06/23/19 History mometasone-formoterol HFA 200 2 puffs INH BID 12/21/17 06/23/19 History mcg-5 mcg/actuation aerosol inhaler nitroglycerin 0.4 mg sublingual 0.4 mg SL Q5M PRN 12/21/17 06/23/19 History tablet omeprazole 20 mg capsule,delayed 20 mg PO HS 12/21/17 06/23/19 History release tramadol 50 mg tablet 50 mg PO Q6H PRN 12/21/17 06/23/19 History Trulicity 1.5 mg SQ TH 12/23/18 06/23/19 History ergocalciferol (vitamin D2) 50,000 unit PO TU 04/12/19 06/23/19 History gabapentin 300 mg PO TID 04/12/19 06/23/19 History hyoscyamine sulfate [Levsin] 0.125 mg PO TID 04/12/19 06/23/19 History insulin aspart U-100 100 unit/mL 300 units CONTINUOUS SUBCUTANEOUS 06/16/19 06/23/19 History subcutaneous solution INFUSION .COMPLEX ml losartan 25 mg tablet 12.5 mg PO QAM tab 06/16/19 06/23/19 History metoprolol tartrate 100 mg tablet 100 mg PO QAM tab 06/16/19 06/23/19 History ceftriaxone 2 gram intravenous 2 gm IV Q24H 06/20/19 06/23/19 History solution oxycodone 10 mg PO Q4H PRN 06/23/19 06/23/19 History spironolactone 25 mg PO QAM 06/23/19 06/23/19 History Patient History Medical History Asthma Bacteremia due to group B Streptococcus Cardiac defibrillator in situ CKD (chronic kidney disease) stage 3, GFR 30-59 ml/min Diabetes mellitus with diabetic polyneuropathy Dyslipidemia GERD (gastroesophageal reflux disease) HTN (hypertension) Hx of myocardial infarction Hx of osteomyelitis Hypothyroid (Chronic) Ischemic cardiomyopathy (Chronic) Lymphedema Morbid obesity NINA on CPAP Peripheral arterial disease Peripheral edema Chronic B/L Statin intolerance (Inactive) Venous insufficiency of both lower extremities Ventricular tachycardia Surgical History H/O shoulder surgery History of colonoscopy History of sinus surgery Hx of amputation of lesser toe Hx of tonsillectomy Family History Sister Family history of diabetes mellitus 2 Grandmother (Maternal) Family history of diabetes mellitus Grandfather (Maternal) Family history of diabetes mellitus Other No family history of adverse response to anesthesia Social History Preferred Language: French Communication Ability: Effective Ic Engineer Required: No Beliefs That Will Affect Care: None Current Living Situation: Spouse Other Information That Helps Us Care for You: No Feels Safe at Home: Yes Safety Concerns: Feels Safe At This Time Smoking Status: Never smoker Second Hand Exposure: Yes (/parents smoke) ; Hx Alcohol Use: Yes Alcohol type: hard liquor Hx Substance Use: No Review of Systems Review of Systems: All systems reviewed & are unremarkable except as noted in HPI & below Physical Exam Constitutional: WD/WN, vitals as above + morbidly obese and healthy appearing Respiratory: normal respiratory effort, lungs clear to auscultation Auscultation: + diminished lung sounds Cardiovascular: Rate/Rhythm: + bradycardic Vessels: posterior tibial pulses present, dorsalis pedis pulses present, brachial pulses present and radial pulses present; + abnormal peripheral pulses Extremities: normal capillary refill, + edema and + vascular access device (R chest petty catheter noted) Gastrointestinal (Abdomen): normal bowel sounds, soft, nontender, no hepatosplenomegaly Skin: + wound (RLE, dressings not removed) Neurologic: moves all extremities and awake; no focal motor deficits and not confused Psychiatric: A+Ox3, euthymic affect Results & Data Vital Signs (Past 12 Hours) Vital Signs Temp Pulse Pulse Resp BP Pulse Ox 06/24/19 08:00 57 L 06/24/19 07:55 36.9 C 24 126/61 06/24/19 03:18 36.4 C L 59 L 16 103/54 L 95 06/24/19 00:53 60 06/23/19 23:41 95/61 L
[2019-06-24] MEDS: cefTRIAXone SODIUM 2,000 MG in DEXTROSE 5% 50 ML IV SCH (14:34)
--- NOTE | 2019-06-24 15:24 | Pharmacy Report ---
Pharmacy Glycemic Short Note 2 - Date of Service June 24, 2019 - Glycemic Short BSG Results (Last 24 hours): 06/23/19 06/23/19 06/24/19 16:16 20:42 05:31 Glucose 200 H POC Glucose 203 H 188 H 06/24/19 06/24/19 07:26 11:23 Glucose POC Glucose 193 H 218 H OUTPATIENT ANTIDIABETIC REGIMEN: * Novolog Pump: 5 units/hr basal rate, CR 1:3, CF: 5 ASSESSMENT: 06/24 * Patient's BSGs elevated today 193-218, current parameters looser than home insulin pump therapy * Patient's to bring in home insulin pump supplies and patient would like to transition back to pump * If transitioning back to pump, would do a temporary basal of 3.7 units/hr until tomorrow morning (0600) or 20% reduction as patient received 32 units of lantus this morning (this would be equivalent to home dosing basal) with further reductions if patient NPO, lantus order for tonight to be cancelled if starting home insulin pump * For now tightened carb ratio to 3, patients home CR. 06/23 * Mr Lyle is a 53 y/o M familiar to the glycemic service. He presented earlier today with cardiac problems. Currently ordered a diet awaiting cardiology consult. * Patient is not able to refill his pump. Start basal bolus per his request. * Based upon previous data, patient requires ~60 units/day. Will give this as a one time dose as a "load" since patient will be starting with no Lantus. Give Lantus 32 units SQ BID starting tomorrow. * Start Novolog based upon previous parameters that produced adequate BSGs. PLAN FOR INPATIENT GLYCEMIC CONTROL: * Basal insulin * Lantus 60 units SQ x 1 then 32 units SQ BID * * Bolus insulin * NovoLog per scale ACHS or Q6hrs while NPO * Goal Range: Low 110 mg/dL - High 140 mg/dL * Correction Factor: 12 mg/dL/unit * Nutritional / Prandial insulin per carb ratio of 1 unit per 3 grams CHO consumed
[2019-06-24 16:28] LABS: BUN Creatinine Ratio 23.8 (10-20); Calcium 8.6 mg/dl (8.5-10.1); Est GFR (African American) 43.9; Est GFR (Non-African American) 37.9; Potassium 3.9 mmol/L (3.5-5.1)
[2019-06-24] MEDS ORDERED: INSULIN ASPART 100 UNITS/ML VIAL SC PRN (17:15)
[2019-06-24] MEDS: POTASSIUM CHLORIDE 10 MEQ TABCR PO SCH (19:29)
[2019-06-24] MEDS: NovoLOG INSULIN PUMP SCH ×2 (19:30→21:05)
[2019-06-24] MEDS: PANTOprazole 40 MG TAB PO SCH (19:32)
--- NOTE | 2019-06-25 00:18 | Emergency Department Note ---
Entered by Bryn Erazo acting as a scribe for History of Present Illness General Chief complaint: Cardiac Assessment Time Seen by Provider: 06/23/19 11:54 Source: patient Limitations: no limitations History of Present Illness Onset (ago): hour(s) ([employer]) Location: chest Pain Consistency: + now resolved Exacerbated By: + other (tachycardia) Associated symptoms: + other (gas, palpitations, ) The patient is a 53 year old male who presents to the Emergency Room with complaints of now-resolved tachycardia starting [employer]. The patient states he was in Dr. Maya's office and started to have tachycardia. He states he was getting checked out because this happened to him before. He states his abdomen is bothering him because he has a little gas. He notes he has been having bloody sputum since his last hospital visit. He states he has cellulitis that is ge tting better. He states his palpitations are gone now. He states he is still taking antibiotics and states tomorrow is his last day. He notes he was taken off amiodarone two weeks ago. He states his metoprolol was doubled and his losartan was cut in half two weeks ago. He states he was also taken off his potassium. He states his device never fired today. He notes the last time his device was checked was two weeks ago. Patient denies any other recent illness. No chest pain or trouble breathing, no dizziness during the episode of tachycardia today. Patient states it did feel like prior episodes. Patient was given amiodarone 150 mg bolus in route to the emergency room. Home Medications Home Medications Medication Instructions Recorded Confirmed Type aspirin 81 mg tablet,delayed 81 mg PO QAM 12/21/17 06/23/19 History release bumetanide 1 mg tablet 1 mg PO BID 12/21/17 06/23/19 History fluticasone propionate 50 2 sprays INTNAS BID gm 12/21/17 06/23/19 History mcg/actuation nasal spray,suspension levothyroxine 100 mcg capsule 100 mcg PO QAM 12/21/17 06/23/19 History magnesium oxide 400 mg PO QAM cap 12/21/17 06/23/19 History metolazone 5 mg tablet 5 mg PO 3XWK tab 12/21/17 06/23/19 History mometasone-formoterol HFA 200 2 puffs INH BID 12/21/17 06/23/19 History mcg-5 mcg/actuation aerosol inhaler nitroglycerin 0.4 mg sublingual 0.4 mg SL Q5M PRN 12/21/17 06/23/19 History tablet omeprazole 20 mg capsule,delayed 20 mg PO HS 12/21/17 06/23/19 History release tramadol 50 mg tablet 50 mg PO Q6H PRN 12/21/17 06/23/19 History Trulicity 1.5 mg SQ TH 12/23/18 06/23/19 History ergocalciferol (vitamin D2) 50,000 unit PO TU 04/12/19 06/23/19 History gabapentin 300 mg PO TID 04/12/19 06/23/19 History hyoscyamine sulfate [Levsin] 0.125 mg PO TID 04/12/19 06/23/19 History insulin aspart U-100 100 unit/mL 300 units CONTINUOUS SUBCUTANEOUS 06/16/19 06/23/19 History subcutaneous solution INFUSION .COMPLEX ml losartan 25 mg tablet 12.5 mg PO QAM tab 06/16/19 06/23/19 History metoprolol tartrate 100 mg tablet 100 mg PO QAM tab 06/16/19 06/23/19 History ceftriaxone 2 gram intravenous 2 gm IV Q24H 06/20/19 06/23/19 History solution oxycodone 10 mg PO Q4H PRN 06/23/19 06/23/19 History spironolactone 25 mg PO QAM 06/23/19 06/23/19 History Allergies Allergy/AdvReac Type Severity Reaction Status Date / Time benzonatate AdvReac Intermediate choking, Verified 06/23/19 12:10 gagging Past Med/Surg History Medical History Asthma Bacteremia due to group B Streptococcus Cardiac defibrillator in situ CKD (chronic kidney disease) stage 3, GFR 30-59 ml/min Diabetes mellitus with diabetic polyneuropathy Dyslipidemia GERD (gastroesophageal reflux disease) HTN (hypertension) Hx of myocardial infarction Hx of osteomyelitis Hypothyroid (Chronic) Ischemic cardiomyopathy (Chronic) Lymphedema Morbid obesity NINA on CPAP Peripheral arterial disease Peripheral edema Chronic B/L Statin intolerance (Inactive) Venous insufficiency of both lower extremities Ventricular tachycardia Surgical History H/O shoulder surgery History of colonoscopy History of sinus surgery Hx of amputation of lesser toe Hx of tonsillectomy Family History Sister Family history of diabetes mellitus 2 Grandmother (Maternal) Family history of diabetes mellitus Grandfather (Maternal) Family history of diabetes mellitus Other No family history of adverse response to anesthesia Social History Preferred Language: Sinhala Communication Ability: Effective Helminthologist Required: No Beliefs That Will Affect Care: None Current Living Situation: Spouse Other Information That Helps Us Care for You: No Feels Safe at Home: Yes Safety Concerns: Feels Safe At This Time Smoking Status: Never smoker Second Hand Exposure: Yes (/parents smoke) ; Hx Alcohol Use: Yes Alcohol type: hard liquor Hx Substance Use: No Review of Systems See HPI for pertinent positives & negatives. and A total of 10 systems reviewed and were otherwise negative Physical Exam Vital Signs Vital Signs - 24 hr 06/23/19 11:50 06/23/19 12:01 06/23/19 12:31 Temperature 98.1 F Temperature Source Oral Pulse Rate 124 H 66 68 Pulse Rate from SpO2 Sensor 67 68 Pulse Rhythm Regular Respiratory Rate 15 Respiratory Effort / Characteristics Non-Labored Spontaneous Respiratory Depth Normal Respiratory Pattern Regular Blood Pressure 117/75 143/77 H 125/81 Blood Pressure Mean 89 93 97 Blood Pressure Position Lying Pulse Oximetry 98 99 96 Oxygen Delivery Method Room Air Room Air Sepsis Recent Fever Within 48 Hours No Sepsis New/Unexplained Change in Mental Status No Sepsis Action Taken by Nursing No Action Required GENERAL: alert, well appearing, well nourished, no distress, non-toxic. Obese. Aspirates and flushes easily. EYE EXAM: normal conjunctiva, PERRL and EOM's grossly intact OROPHARYNX: no exudate, no erythema, lips, buccal mucosa, and tongue normal and mucous membranes are moist NECK: supple, no nuchal rigidity, no adenopathy, non-tender LUNGS: Clear to auscultation. Normal chest wall mechanics CHEST: Indwelling double luminal catheter to the right chest wall. No surrounding erythema. HEART: no murmurs, S1 normal and S2 normal ABDOMEN: abdomen soft, non-tender, normo-active bowel sounds, no masses, no rebound or guarding. BACK: Back is symmetrical on inspection and there is no deformity, no midline tenderness, no CVA tenderness. SKIN: no rashes and no bruising UPPER EXTREMITIES: upper extremities are grossly normal. FROM, nml pulses b/l. LOWER EXTREMITIES: 3+ edema bilaterally. Compression stocking noted to the left. Right cling wrap with Coban wrap over top. Normal distal pulses bilaterally. NEURO EXAM: Normal sensorium, cranial nerves II-XII grossly intact, normal speech, no gross weakness of arms, no gross weakness of legs. Course Course 1155: The patient was evaluated in room B1, and a complete history and physical examination were performed. Patient spontaneously converted upon arrival here. 1210: I spoke with Dr. Hoover - Cardiology. He recommends interrogating the pacemaker, start the patient on amiodarone drip, and admit the patient to the hospitalist. 1228: I discussed the patient's case with Aurea VELAZQUEZ. Dr. [facility] Hospitalist will evaluate the patient for further management. 1248: I reevaluated the patient. He is in his 70s BPM. I updated him on the plan, and he agrees. Administered Medications Acetaminophen (Tylenol) 650 mg PO Q4H PRN PRN Reason: Pain or Fever Stop: 07/23/19 13:40 Last Admin: 06/23/19 23:45 Dose: 650 mg Documented by: [id number] Amiodarone HCl (Cordarone) 200 mg PO QID [facility] Stop: 07/24/19 09:14 Last Admin: 06/24/19 19:30 Dose: 200 mg Documented by: [id number] Admin: 06/24/19 17:09 Dose: 200 mg Documented by: [id number] Admin: 06/24/19 12:37 Dose: 200 mg Documented by: [id number] Admin: 06/24/19 10:19 Dose: Not Given Documented by: [id number] Aspirin (Ecotrin Ectab) 81 mg PO QAM [facility] Stop: 07/24/19 08:59 Last Admin: 06/24/19 08:11 Dose: 81 mg Documented by: [id number] Bumetanide (Bumex) 1 mg PO BID17 [facility] Stop: 07/23/19 16:59 Last Admin: 06/24/19 17:09 Dose: 1 mg Documented by: [id number] Admin: 06/24/19 08:10 Dose: 1 mg Documented by: [id number] Admin: 06/23/19 16:23 Dose: 1 mg Documented by: [id number] Fluticasone/Vilanterol (Breo Ellipta 200/25 Mcg Inh) 1 puffs INH DAILY [facility] Stop: 07/24/19 08:59 Last Admin: 06/24/19 08:09 Dose: 1 puffs Documented by: [id number] Gabapentin (Neurontin) 300 mg PO TID [facility] Stop: 07/23/19 13:59 Last Admin: 06/24/19 19:30 Dose: 300 mg Documented by: [id number] Admin: 06/24/19 13:49 Dose: 300 mg Documented by: [id number] Admin: 06/24/19 08:08 Dose: 300 mg Documented by: [id number] Admin: 06/23/19 20:32 Dose: 300 mg Documented by: [id number] Admin: 06/23/19 16:21 Dose: 300 mg Documented by: [id number] Heparin Sodium (Porcine) (Heparin Sodium (Porcine)) 5,000 units SQ Q8 [facility] Stop: 07/23/19 21:59 Last Admin: 06/24/19 19:32 Dose: Not Given Documented by: [id number] Admin: 06/24/19 13:54 Dose: Not Given Documented by: [id number] Admin: 06/24/19 05:37 Dose: 5,000 units Documented by: [id number] Cosigned by: [id number] Admin: 06/23/19 21:11 Dose: 5,000 units Documented by: [id number] Cosigned by: [id number] Hyoscyamine (Levsin) 0.125 mg PO TID [facility] Stop: 07/23/19 13:59 Last Admin: 06/24/19 19:29 Dose: 0.125 mg Documented by: [id number] Admin: 06/24/19 13:49 Dose: 0.125 mg Documented by: [id number] Admin: 06/24/19 08:11 Dose: 0.125 mg Documented by: [id number] Admin: 06/23/19 20:32 Dose: 0.125 mg Documented by: [id number] Admin: 06/23/19 16:22 Dose: 0.125 mg Documented by: [id number] Insulin Aspart (Novolog Insulin Pump) 1 ea N/A ACHS [facility]; Protocol Stop: 07/24/19 20:59 Last Admin: 06/24/19 21:05 Dose: Not Given Documented by: [id number] Admin: 06/24/19 19:30 Dose: 23.33 ea Documented by: [id number] [facility] Stop: 07/24/19 06:29 Last Admin: 06/24/19 05:39 Dose: 100 mcg Documented by: [id number] Losartan Potassium (Cozaar) 12.5 mg PO [facility] Stop: 07/24/19 08:59 Last Admin: 06/24/19 08:10 Dose: 12.5 mg Documented by: [id number] Magnesium Oxide (Mag-Ox) 400 mg PO [facility] Stop: 07/24/19 08:59 Last Admin: 06/24/19 08:12 Dose: 400 mg Documented by: [id number] Metolazone (Zaroxolyn) 5 mg PO [id number] [facility] Stop: 07/24/19 08:59 Last Admin: 06/24/19 08:12 Dose: 5 mg Documented by: [id number] Metoprolol Tartrate (Lopressor) 100 mg PO [facility] Stop: 07/24/19 08:59 Last Admin: 06/24/19 08:12 Dose: 100 mg Documented by: [id number] Oxycodone HCl (Roxicodone Immediate Rel) 10 mg PO Q4H PRN PRN Reason: Pain Stop: 07/07/19 13:40 Last Admin: 06/24/19 09:09 Dose: 10 mg Documented by: [id number] Pantoprazole Sodium (Protonix) 40 mg PO [facility]; Protocol Stop: 07/23/19 20:59 Last Admin: 06/24/19 19:32 Dose: 40 mg Documented by: [id number] Admin: 06/23/19 20:33 Dose: 40 mg Documented by: [id number] Polyethylene Glycol (Miralax Powder Packet) 17 gm PO DAILY PRN PRN Reason: Constipation Stop: 07/24/19 05:11 Last Admin: 06/24/19 05:33 Dose: 17 gm Documented by: [id number] Potassium Chloride (Klor-Con M10) 10 meq PO BID [facility] Stop: 07/24/19 20:59 Last Admin: 06/24/19 19:29 Dose: 10 meq Documented by: [id number] Discontinued Medications Amiodarone HCl (Cordarone) 200 mg PO BIDM [facility] Stop: 07/23/19 16:59 Last Admin: 06/24/19 08:08 Dose: 200 mg Documented by: [id number] Admin: 06/23/19 18:09 Dose: 200 mg Documented by: [id number] Amiodarone HCl/Dextrose (Nexterone / D5w) 360 mg in 200 mls @ 33.333 mls/hr IV .Q6H [facility] Stop: 06/23/19 18:14 Last Infusion: 06/23/19 18:26 Dose: 0 mg/min, 0 mls/hr Documented by: [id number] Cosigned by: [id number] Admin: 06/23/19 12:25 Dose: 1 mg/min, 33.3 mls/hr Documented by: [id number] Cosigned by: [id number] N/A (0.2 Micron Filter Set 17" W/Clave,Non-Dehp) 0 mls @ 1 mls/hr IV ONE ONE Stop: 06/23/19 12:14 Last Admin: 06/23/19 12:27 Dose: 1 mls/hr Documented by: [id number] Amiodarone HCl/Dextrose (Nexterone / D5w) 360 mg in 200 mls @ 16.667 mls/hr IV .Q12H [facility] Stop: 07/23/19 18:14 Last Infusion: 06/24/19 12:50 Dose: 0 mg/min, 0 mls/hr Documented by: [id number] Cosigned by: [id number] Infusion: 06/24/19 12:42 Dose: 0.5 mg/min, 16.7 mls/hr Documented by: [id number] Cosigned by: [id number] Admin: 06/24/19 05:37 Dose: 0.5 mg/min, 16.7 mls/hr Documented by: [id number] Cosigned by: [id number] Infusion: 06/24/19 05:37 Dose: 0.5 mg/min, 16.7 mls/hr Documented by: [id number] Cosigned by: [id number] Infusion: 06/23/19 23:27 Dose: 0.5 mg/min, 16.7 mls/hr Documented by: [id number] Cosigned by: [id number] Admin: 06/23/19 18:14 Dose: 0.5 mg/min, 16.7 mls/hr Documented by: [id number] Cosigned by: [id number] Ceftriaxone Sodium 2,000 mg/ (Dextrose) 70 mls @ 140 mls/hr IV Q24H [facility] Stop: 06/24/19 15:29 Last Infusion: 06/24/19 15:31 Dose: 0 mls/hr Documented by: [id number] Admin: 06/24/19 14:34 Dose: 140 mls/hr Documented by: [id number] Infusion: 06/23/19 17:46 Dose: 0 mls/hr Documented by: [id number] Admin: 06/23/19 16:22 Dose: 140 mls/hr Documented by: [id number] Magnesium Sulfate/Dextrose (Magnesium Sulfate / D5w) 1 gm in 100 mls @ 100 mls/hr IV ONE ONE Stop: 06/23/19 16:14 Last Infusion: 06/23/19 16:21 Dose: 0 mls/hr Documented by: [id number] Admin: 06/23/19 15:12 Dose: 100 mls/hr Documented by: [id number] Insulin Aspart (Novolog Insulin Pump) 1 ea N/A ACHS [facility]; Protocol Stop: 07/23/19 13:59 Last Admin: 06/23/19 19:15 Dose: 1 ea Documented by: [id number] Admin: 06/23/19 19:11 Dose: Not Given Documented by: [id number] Cosigned by: [id number] Insulin Aspart (Novolog Aspart) 0 units SC PRN PRN PRN Reason: REFILL Stop: 07/23/19 13:59 Last Admin: 06/23/19 19:15 Dose: 5 units Documented by: [id number] Cosigned by: [id number] Insulin Aspart (Novolog Flexpen) 0 units SC ACHS [facility] Stop: 07/23/19 20:59 Last Admin: 06/24/19 17:59 Dose: Not Given Documented by: [id number] Cosigned by: [id number] Admin: 06/24/19 12:33 Dose: 22 units Documented by: [id number] Cosigned by: [id number] Admin: 06/24/19 08:04 Dose: 23 units Documented by: [id number] Cosigned by: [id number] Admin: 06/23/19 21:10 Dose: 4 units Documented by: [id number] Cosigned by: [id number] Insulin Glargine (Lantus Solostar Pen) 60 units SC NOW ONE Stop: 06/23/19 20:31 Last Admin: 06/23/19 21:09 Dose: 60 units Documented by: [id number] Cosigned by: [id number] Insulin Glargine (Lantus Solostar Pen) 32 units SC Q12 [facility] Stop: 07/24/19 08:59 Last Admin: 06/24/19 08:04 Dose: 32 units Documented by: [id number] Cosigned by: [id number] Metoprolol Tartrate (Lopressor) Confirm Administered Dose 5 mg IV .STK-MED ONE Stop: 06/23/19 14:50 Last Increment: 06/23/19 14:53 Dose: 2.5 mg Documented by: [id number] Potassium Chloride (Klor-Con M20) 40 meq PO BID [facility] Stop: 06/23/19 21:01 Last Admin: 06/23/19 20:31 Dose: 40 meq Documented by: [id number] Admin: 06/23/19 14:40 Dose: 40 meq Documented by: [id number] Potassium Chloride (Klor-Con M20) 40 meq PO NOW ONE Stop: 06/24/19 09:07 Last Admin: 06/24/19 10:23 Dose: 40 meq Documented by: [id number] Spironolactone (Aldactone) 25 mg PO QAM [facility] Stop: 07/24/19 08:59 Last Admin: 06/24/19 08:09 Dose: 25 mg Documented by: [id number] Spironolactone (Aldactone) 25 mg PO NOW ONE Stop: 06/24/19 09:07 Last Admin: 06/24/19 10:23 Dose: 25 mg Documented by: [id number] Critical Care Time Critical Care Time: Yes Total Critical Care Time: 33 I have personally spent 33 minutes of critical care time in the direct management of this patient. This includes bedside care, interpretation of diagnostic studies, and testing, discussion with consultants, patient, and family members, and other required patient management activities. This 33 minutes is in excess of all separately billable procedures. Medical Decision Making Differential Diagnosis Differential diagnosis includes etiologies such as premature contractions, electrolyte abnormality, cardiac dysrhythmia, thyroid dysfunction, pulmonary embolism, infection, gastrointestinal, as well as others were entertained. Medical Records Attestation: I reviewed the patient's medical records. Home Medications Current Medication List: was personally reviewed by me Laboratory Data Attestation: I reviewed the patient's lab results. Result diagrams: 06/24/19 05:31 06/24/19 15:22 Lab Results 06/23/19 06/23/19 06/23/19 Range/Units 12:00 12:00 12:00 WBC 6.12 (4.8-10.8) K/uL RBC 3.68 L (4.7-6.1) M/uL Hgb 10.7 L (14.0-18.0) g/dL Hct 33.1 L (42-52) % MCV 89.9 (80-100) fL MCH 29.1 (25-34) pg MCHC 32.3 (32-36) g/dL RDW Std Deviation 51.1 H (36.4-46.3) fL RDW Coeff of Мария 15.6 H (11.5-14.5) % Plt Count 257 (130-400) K/uL MPV 9.3 (7.4-10.4) fL Immature Gran % (Auto) 0.5 % Neut % (Auto) 73.9 % Lymph % (Auto) 8.3 % [place] % (Auto) 12.9 % Eos % (Auto) 4.1 % Baso % (Auto) 0.3 % Immature Gran # (Auto) 0.03 H (0.00-0.02) K/uL Neut # (Auto) 4.52 (1.4-6.5) K/uL Lymph # (Auto) 0.51 L (1.2-3.4) K/uL [place] # (Auto) 0.79 H (0.11-0.59) K/uL Eos # (Auto) 0.25 (0-0.5) K/uL Baso # (Auto) 0.02 (0-0.2) K/uL PT 12.8 H (9.0-12.0) Seconds INR 1.3 H (0.9-1.1) Sodium 134 L (136-145) mmol/L Potassium 3.2 L (3.5-5.1) mmol/L Chloride 97 L (98-107) mmol/L Carbon Dioxide 30 (21-32) mmol/L Anion Gap 7.0 (3-11) BUN 48 H (7-18) mg/dl Creatinine 1.81 H (0.6-1.4) mg/dl Est Cr Clr Drug Dosing 74.9 ml/min Est GFR ( Amer) 47.7 Est GFR (Non-Af Amer) 41.2 BUN/Creatinine Ratio 26.6 H (10-20) Glucose 163 H (70-99) mg/dl Calcium 8.7 (8.5-10.1) mg/dl Magnesium 1.8 (1.8-2.4) mg/dl Total Bilirubin 0.4 (0.2-1) mg/dl AST 19 (15-37) U/L ALT 23 (12-78) U/L Alkaline Phosphatase 142 H (45-117) U/L Troponin I < 0.015 (0-0.045) ng/ml NT-Pro-B Natriuret Pep 647 (0-900) pg/ml Total Protein 8.9 H (6.4-8.2) gm/dl Albumin 2.6 L (3.4-5.0) gm/dl Globulin 6.3 H (2.5-4.0) gm/dl Albumin/Globulin Ratio 0.4 L (0.9-2) Imaging Data Radiologist's Impression: Radiology results as stated below per my review and the radiologist's interpretation: XR chest 1V portable HISTORY: palpitations COMPARISON: Chest 05/31/2019. FINDINGS: No pneumothorax. Trace bilateral pleural effusions. The heart remains enlarged. There is diffuse interstitial vascular thickening consistent with mild congestive change. This is similar to the prior study. No new focal lung consolidations to suggest pneumonia. Left-sided pacemaker/defibrillator is again noted. A right central venous catheter terminates at the superior cavoatrial junction. The tip is partially excluded by the pacemaker wire. IMPRESSION: No significant change in the cardiomegaly, trace bilateral pleural effusions, and mild congestive change. ACT 112: Negative or not required by law. Electronically signed by: Huey Thorne M.D. 06/23/2019 12:30 PM ECG Data Attestation: I personally reviewed and interpreted this ECG as follows: Indication: + palpitations Rate (beats per minute): 66 Rhythm: + sinus rhythm ECG Intervals/blocks: + Normal QRS, + Normal QT, + Normal CA and + Normal QT-c ECG [place]: + Normal ECG ST segments: no ST depression and no ST elevation ECG Findings: + Q waves (in V2 and V3) Blood Pressure Blood Pressure Findings: Normal blood pressure Blood Pressure Disposition: further management by hospitalist ABBE Silvestre Continuous Cardiac Monitoring: An order was placed for continuous cardiac monitoring. The monitor shows a rate of 66 with a sinus rhythm. Patient here well-appearing after spontaneously converting upon arrival. Patient had been given amiodarone bolus by EMS prior to arrival. Patient was continued on amiodarone drip while here. Labs drawn and sent and chest x-ray ordered on the patient as a precaution. I discussed the case with Dr. Hoover who was in agreement with the plan. Case discussed with hospitalist. No significant electrolyte abnormalities noted. Patient's creatinine stable compared to prior and patient has a known history of chronic kidney disease. Patient's anemia stable compared to prior also. Impression & Plan Palpitations, Dysrhythmia, Chronic kidney disease, Anemia Discharge Plan Visit Data *Final* Discharge Date/Time: 06/23/19 13:10 Chief Complaint: Cardiac Assessment ED Provider: Leatha Mckeon Discharge Problem: Palpitations, Dysrhythmia, Chronic kidney disease, Anemia Patient Disposition: Admitted As Inpatient Discharge Instructions Interventions: ED Discharge Assessment Last Done: 06/23/19 13:10 Discharge Problem: Dysrhythmia Qualifiers: Arrhythmia type: ventricular tachycardia Qualified Code(s): I47.2 - Ventricular tachycardia Chronic kidney disease Qualifiers: Chronic kidney disease stage: unspecified stage Qualified Code(s): N18.9 - Chronic kidney disease, unspecified Anemia Qualifiers: Anemia type: unspecified type Qualified Code(s): D64.9 - Anemia, unspecified The scribe's documentation has been prepared under my direction and personally reviewed by me in its entirety. I confirm that the note above accurately reflects all work, treatment, procedures, and medical decision making performed by me.
[2019-06-25] MEDS: HEPARIN SOD 5,000 UNIT/0.5 ML VIAL SQ SCH (05:22)
[2019-06-25] MEDS: LEVOTHYROXINE SODIUM 100 MCG TABLET PO SCH (05:22)
--- NOTE | 2019-06-25 07:03 | Discharge Summary ---
Date of Service June 25, 2019 Admission HPI Per Admitting Provider 53-year-old male who was sent to the ED by referral outpatient industrial court magistrate for evaluation of wide-complex tachycardia/V. tach. Patient recently admitted to [facility] 05/26-06/07 for management of sepsis due to right lower extremity cellulitis and group B strep bacteremia, ventricular tachycardia. Patient was transferred to [facility] for further management on 06/07 and discharged on 06/14. While at [facility] patient was treated with IV amiodarone and required emergent cardioversion on 05/31/2019 for V. tach. His previously placed AICD VT zone was reprogrammed. While at [facility], patient was treated IV amiodarone and lidocaine infusions. He was also given IV diuresis for congestive heart failure. Repeat cardiac cath demonstrated no major changes compared to cardiac cath in 2010. At discharge from [facility], metoprolol succinate was titrated to 100 mg daily and amiodarone was discontinued per electrophysiology recommendations. EP suggested possible future addition of sotalol and/or VT ablation. Losartan was decreased to 12.5 mg daily due to hypotension and CHATO. Potassium supplementation was discontinued. For treatment of group B strep bacteremia, ID recommended IV ceftriaxone for a total of 14 days of therapy. Patient underwent TDC placement. Nephrology recommended against a PICC line in the event patient needed a fistula for future dialysis. Patient presented to outpatient industrial court magistrate today for routine follow-up visit. While in the waiting room, he developed palpitations. EKG was obtained showing V. tach at a rate of 125 bpm. Patient was transferred to the ED for further evaluation. Patient denies any associated chest pain, ICD discharges, syncopal events. A couple of days ago, had some nausea and vomiting. Denies hematemesis and coffee-ground emesis. Denies diarrhea. No fevers or chills. Reports that right lower extremity cellulitis is healing well. No surrounding erythema or drainage from right chest TDC. Denies any urinary symptoms. Patient reports he weighs himself on a daily basis and weights have been stable. No orthopnea. In route to the ED, patient received amiodarone bolus for EMS. He subsequently converted to NSR upon arrival to the ED. Labs show K+ 3.2, otherwise unremar kable/at patient's baseline. Patient was started on amiodarone drip. Admission Exam Per Admitting Provider Constitutional: WD/WN, vitals as above + obese Eyes: PERRL, conjunctivae normal, anicteric sclerae ENMT: external ear and nose normal, oropharynx normal Respiratory: normal respiratory effort, lungs clear to auscultation Cardiovascular: Rate/Rhythm: regular rate and regular rhythm Vessels: normal peripheral pulses Extremities: + edema (lymphedema BLLE, at baseline per patient) Gastrointestinal (Abdomen): normal bowel sounds, soft, nontender, no hepatosplenomegaly Musculoskeletal: no cyanosis or clubbing, extremities motor strength 5/5 Skin: no rashes, warm and dry dressing in place to RLE Neurologic: PERRL, EOMI, accommodation nl, no face palsy, no dysarthria Psychiatric: A+Ox3, euthymic affect Principal Diagnosis (1) Sustained VT (ventricular tachycardia): (2) Bacteremia due to group B Streptococcus: (3) Cellulitis of right leg: (4) Ischemic cardiomyopathy: (5) Cardiac defibrillator in situ: (6) Asthma: (7) HTN (hypertension): (8) NINA on CPAP: (9) CKD (chronic kidney disease) stage 3 Discharge Exam Gen-AAO x 3, NAD, Afebrile Head-NCAT, EOMI, PERRLA, Anicteric Sclera, No Posterior Pharyngeal Erythema Neck-Supple, No JVD, No Thyromegaly, No Masses, No LAD, No Bruits Lungs-Clear to Auscultation Bilaterally, No Rales, No Rhonchi, No Wheezing, No Crepitus Chest-No S4, +S1, +S2, No S3, No Murmurs, No Rubs, No Gallops, No Ectopy Abdomen-Soft, Bowel Sounds Present, Non Tender, Non Distended, No Hepatomegaly, No Splenomegaly, No Palpable Masses, No Rebound, No Rigidity, No Guarding Musculoskeletal-Full Range of Motion Bilaterally, No CVAT Extremities-No Cyanosis, No Clubbing, No Edema Nuero-Cranial Nerves II-XII grossly intact, Motor WNL, DTRs WNL, Strength WNL, Non Focal Psych-Normal Mood Discharge Data Allergies Allergy/AdvReac Type Severity Reaction Status Date / Time benzonatate AdvReac Intermediate choking, Verified 06/23/19 12:10 gagging Consultations 06/23/19 12:31 ED Decision to Admit Stat 06/23/19 13:41 Consult Cardiology Routine Consult Case Management - Discharge Planning Routine 06/24/19 10:36 Consult Vascular Surgery Routine Current Diagnoses Streptococcus, group B, as the cause of diseases classified elsewhere (06/23/19) Hypokalemia (06/23/19) Obstructive sleep apnea (adult) (pediatric) (06/23/19) Essential (primary) hypertension (06/23/19) Ischemic cardiomyopathy (06/23/19) Ventricular tachycardia (06/23/19) Venous insufficiency (chronic) (peripheral) (06/23/19) Unspecified asthma, uncomplicated (06/23/19) Cellulitis of right lower limb (06/23/19) Chronic kidney disease, stage 3 (moderate) (06/23/19) Bacteremia (06/23/19) Encounter for prophylactic measures, unspecified (06/23/19) Presence of automatic (implantable) cardiac defibrillator (06/23/19) Dependence on other enabling machines and devices (06/23/19) Allergies benzonatate Adverse Reaction (Intermediate, Verified 06/23/19 12:10) choking, gagging Height/Weight/Isolation Height 6 ft Weight 171.8 kg Chemistry 06/23/19 06/24/19 06/24/19 12:00 05:31 15:22 Sodium 134 L 133 L 135 L Potassium 3.2 L 3.5 3.9 Chloride 97 L 98 99 Carbon Dioxide 30 30 31 Anion Gap 7.0 5.0 5.0 BUN 48 H 46 H 46 H Creatinine 1.81 H 1.79 H 1.94 H Glucose 163 H 200 H 212 H Procedures Performed Operation Date: 06/27/19 10:50 <No data on this case meets the specified criteria> Hospital Course (1) Sustained VT (ventricular tachycardia): -Patient sent in by outpatient industrial court magistrate after he was found to be in sustain ed wide-complex tachycardia/V. tach with rates in the 120s -Recent hospitalization for management of RLE cellulitis, group B streptococcus bacteremia, V. tach as outlined in HPI; amiodarone discontinued secondary to patient's age and consideration for future initiation of sotalol and/or V. tach ablation, metoprolol adjusted to 100 mg daily -Received amiodarone bolus for EMS, spontaneously converted to NSR in ED -Completed IV amiodarone drip -Continue oral metoprolol -Recent cardiac cath at [facility] did not show evidence of acute ischemia -Hypokalemia repleted -Cardiology on case, DC today on PO Amiodarone-No new episodes of VT (2) Bacteremia due to group B Streptococcus: (3) Cellulitis of right leg: -Finished IV ceftriaxone -Had TAC line placed which will be removed by Dr Gonzalez in the office -Patient follows at the wound care center for RLE cellulitis/wounds (4) Ischemic cardiomyopathy: AICD in Place (5) Cardiac defibrillator in situ: -EF 30 to 39% -Management of V. tach as above -Continue aspirin, beta-noy, ARB; patient statin intolerant -Volume status acceptable, continue spironolactone (6) Asthma: -No signs of acute exacerbation -Continue home inhalers (7) HTN (hypertension): -BP currently controlled -Continue metoprolol and losartan (8) NINA on CPAP: -CPAP as per home settings (9) CKD (chronic kidney disease) stage 3, GFR 30-59 ml/min: - continue to monitor, avoid nephrotoxic agents when able (10) DVT prophylaxis: DC home today after seen by Cardio Total Time Total Time Spent Total Time Spent (In Minutes): 45 mins Total Time Includes: Examination of the Patient, Discharge Planning, Medication Reconciliation and Communication With Other Providers Discharge Plan Discharge Items Patient Disposition: Home - Self-Care Reason For Visit: V-TACH Discharge Diagnosis: (1) Sustained VT (ventricular tachycardia): (2) Bacteremia due to group B Streptococcus: (3) Cellulitis of right leg: (4) Ischemic cardiomyopathy: (5) Cardiac defibrillator in situ: (6) Asthma: (7) HTN (hypertension): (8) NINA on CPAP: (9) CKD (chronic kidney disease) stage 3 Activity: Resume your previous activity Lifting: Gradually increase as tolerated Bathing: No limitations Sexual Activity: When tolerated Exercise/Sports: Gradually increase as tolerated Driving/Machine Use: No limitations Weightbearing: Full weightbearing Non-emergency contact: Primary Care Provider and [employer] Duty Manager Call non-emergency contact if: you have any medication questions Follow-up/Referrals: Sherry Maya DO [Primary Care Provider] - Ben Hoover MD [Physician] - (Call for Appt) Nate Gonzalez MD [Physician] - (Thursday in the office for IV line removal) Diet: Carb Consistent or DM2, Heart Healthy and Low Sodium (2gm) Addtl Attending Provider Instructions: None Pending Studies at Discharge: No Stand-Alone Forms: [facility] [employer], Smoking Cessation Medications and DC Order Prescriptions: New amiodarone 200 mg Tablet 200 mg PO QID Qty: 120 RF: 0 spironolactone 25 mg Tablet 50 mg PO QAM Qty: 30 RF: 0 Continued aspirin [Aspir-81] 81 mg tablet,delayed release (DR/EC) 81 mg PO QAM RF: 0 bumetanide 1 mg tablet 1 mg PO BID RF: 0 fluticasone propionate [Flonase Allergy Relief] 50 mcg/actuation spray,suspension 2 sprays INTNAS BID RF: 0 levothyroxine 100 mcg capsule 100 mcg PO QAM RF: 0 magnesium oxide 400 mg capsule 400 mg PO QAM RF: 0 metolazone 5 mg tablet 5 mg PO 3XWK RF: 0 mometasone-formoterol [Dulera] 200-5 mcg/actuation HFA aerosol inhaler 2 puffs INH BID RF: 0 nitroglycerin 0.4 mg tablet, sublingual 0.4 mg SL Q5M PRN (Reason: Chest Pain) RF: 0 omeprazole 20 mg capsule,delayed release(DR/EC) 20 mg PO HS RF: 0 tramadol 50 mg tablet 50 mg PO Q6H PRN (Reason: pain) RF: 0 losartan 25 mg tablet 12.5 mg PO QAM RF: 0 metoprolol tartrate 100 mg tablet 100 mg PO QAM RF: 0 Trulicity 1.5 mg/0.5 mL pen injector 1.5 mg SQ TH RF: 0 hyoscyamine sulfate [Levsin] 0.125 mg Tablet 0.125 mg PO TID RF: 0 gabapentin 300 mg Capsule 300 mg PO TID RF: 0 ergocalciferol (vitamin D2) 2,500 unit Capsule 50,000 unit PO TU RF: 0 insulin aspart U-100 [Novolog U-100 Insulin aspart] 100 unit/mL solution 300 units continuous subcutaneous infusion .COMPLEX RF: 0 oxycodone 5 mg tablet 10 mg PO Q4H PRN (Reason: Pain) RF: 0 Discontinued ceftriaxone 2 gram recon soln 2 gm IV Q24H RF: 0 spironolactone 25 mg tablet 25 mg PO QAM RF: 0 Discharge Orders: Discharge Order (Routine); Ordered 06/25/19 Ordered By: Best Chase Admission Data Admit Date/Time: 06/23/19 12:39 Attending Provider: Best Chase Admit Provider: Fei Pendleton Primary Care Provider: Sherry Maya Other Providers: Fei Pendleton ; Ben Hoover ; [facility] ; Nate Gonzalez
[2019-06-25 07:45] LABS: Hematocrit (blood only) 34.5 % (42-52); Hemoglobin 11.3 g/dL (14.0-18.0); Mean Corpuscular Hemoglobin 29.5 pg (25-34); Mean Corpuscular Hgb Conc 32.8 g/dL (32-36); Mean Corpuscular Volume 90.1 fL (80-100); Mean Platelet Volume 9.8 fL (7.4-10.4); Platelet Count 332 K/uL (130-400); RDW Coefficient of Variation 15.7 % (11.5-14.5); RDW Standard Deviation 52.1 fL (36.4-46.3); Red Blood Count 3.83 M/uL (4.7-6.1); White Blood Count 7.87 K/uL (4.8-10.8)
[2019-06-25] MEDS: GABAPENTIN 300 MG CAP PO SCH (08:07)
[2019-06-25] MEDS: ASPIRIN 81 MG ECTAB PO SCH (08:07)
[2019-06-25] MEDS: NovoLOG INSULIN PUMP SCH ×2 (08:07→12:05)
[2019-06-25] MEDS: MAGNESIUM OXIDE 400 MG TAB PO SCH (08:08)
[2019-06-25] MEDS: HYOSCYAMINE SULFATE 0.125 MG TAB PO SCH (08:08)
[2019-06-25] MEDS: LOSARTAN POTASSIUM 25 MG TAB PO SCH (08:08)
[2019-06-25] MEDS: METOPROLOL TARTRATE 100 MG TAB PO SCH (08:08)
[2019-06-25] MEDS: POTASSIUM CHLORIDE 10 MEQ TABCR PO SCH (08:08)
[2019-06-25] MEDS: AMIODARONE 200 MG TAB PO SCH (08:09)
[2019-06-25] MEDS: BUMETANIDE 1 MG TAB PO SCH (08:09)
[2019-06-25] MEDS: FLUTICASONE/VILANTEROL 200/25MCG 14 PUFFS/INHALER INH SCH (08:09)
[2019-06-25 08:25] LABS: BUN Creatinine Ratio 25.4 (10-20); Calcium 9.2 mg/dl (8.5-10.1); Creatinine Clr Calc Pharmacy 70.5 ml/min; Est GFR (African American) 44.2; Est GFR (Non-African American) 38.1
[2019-06-25] MEDS ORDERED: SPIRONOLACTONE 25 MG TAB PO SCH (09:00)
--- NOTE | 2019-06-25 10:42 | Cardiology Progress Note ---
Date of Service June 25, 2019 Assessment & Plan (1) Sustained VT (ventricular tachycardia): Vtach free for 36 hours potassium a little low at 3.6, will give additional 40meq now and should be discharged home on 40meq daily along with increased spironolactone dose bmp as outpatient in 4-5 days with results to PCP and Dr. Maya cont current amio 200mg q6hrs Ultimate plans will be for VT ablation with outpatient evaluation prior ICD functioning appropriately risk discussed with patient, would like to be discharged and agrees to f/u as scheduled. ok to d/c to home from cardiac standpoint. my office will call to arrange cardiology follow up this week (2) Cardiac defibrillator in situ: Normal function on interrogation (3) Ischemic cardiomyopathy: No acute decompensation or congestive heart failure on exam plan as above (4) Venous insufficiency of both lower extremities: (5) NINA on CPAP: Continue CPAP usage (6) Hypokalemia: Hypokalemia has been presenting insult in the past as above Subjective Pt seen and examined, states that he feels well. Anxious for discharge, denies cardiac complaints of chest pain, sob, palpitations, lightheadedness or dizziness. Tele reviewed: sinus rhythm without arrhythmia. VTach free for 36 hours Review of Systems Review of Systems: All systems reviewed & are unremarkable except as noted in HPI & below Physical Exam Physical Exam: General: Awake, alert and oriented x 3. No acute distress. HEENT: Normocephalic, atraumatic. Pupils equal, round and reactive to light and accommodation. Extraocular muscles are intact. Anicteric sclera. Moist mucous membranes. Neck: No JVD. No bruit. Cardiovascular: Regular. Positive S-4. Normal S-1 and S-2. No S-3. No murmurs or rubs. Pulmonary: Clear to auscultation B/L. No rales, rhonchi or wheezing Abdomen: Bowel sounds x 4, soft. No rebound, guarding or tenderness. No organomegaly. Extremities: No clubbing, cyanosis or edema. +2 pedal pulses bilaterally. Skin: Warm and dry. Results & Data Vital Signs (Past 12 Hours) Vital Signs Temp Pulse Resp BP Pulse Ox 06/25/19 07:57 36.5 C 64 16 115/76 99 06/25/19 03:57 37.0 C 62 19 112/45 L 94 06/24/19 23:54 37.0 C 63 19 106/51 L 93
[2019-06-25] MEDS ORDERED: POTASSIUM CHLORIDE 20 MEQ TABCR PO SCH (10:45)
--- NOTE | 2019-06-26 12:27 | Electrocardiogram Report ---
Test Reason : Blood Pressure : / mmHG Vent. Rate : 063 BPM Atrial Rate : 063 BPM P-R Int : 214 ms QRS Dur : 102 ms QT Int : 444 ms P-R-T Axes : 048 049 124 degrees QTc Int : 454 ms Sinus rhythm with 1st degree A-V block Low voltage QRS Septal infarct (cited on or before 25-JUN-2019) Nonspecific T wave abnormality Abnormal ECG When compared with ECG of 24-JUN-2019 06:56, Confirmed by Serjio Stephens ([id number]) on 06/26/2019 12:26:40 PM Referred By: REFERRED SELF Confirmed By:Serjio Stephens
== END 2019-06-25 13:11 | disposition home health service (06) | DRG 309 ==
LOC: ED 11:44 → 2E 12:39 → SUATTDRO 12:39 → 2E 13:10

== ENCOUNTER 2020-07-12 15:46 | Inpatient (IN) ==
[2020-07-12] MEDS ORDERED: DAPTOmycin 675 MG in SYRINGE 0 ML IV ONE (17:05)
--- NOTE | 2020-07-12 17:54 | History & Physical Report ---
Date of Service July 12, 2020 History of Present Illness Chief Complaint: Worsening left foot wound and referred by wound clinic. Primary Care Provider: Sherry Maya DO This is a 54-year-old male who has significant past medical history of uncontrolled T2DM, chronic ischemic heart disease, obesity hypoventilation syndrome, chronic CHF, history of V. tach, history of DVT on warfarin, permanent pacemaker/AICD, NINA, HTN, HLD, diabetic neuropathy, hypothyroidism, morbid obesity who presents to ED at referral of wound care. Allergies Allergy/AdvReac Type Severity Reaction Status Date / Time benzonatate AdvReac Intermediate choking, Verified 07/12/20 14:54 gagging Home Medications Medication Instructions Recorded Confirmed Type fluticasone propionate 50 2 sprays INTNAS BID gm 12/21/17 07/12/20 History mcg/actuation nasal spray,suspension levothyroxine 100 mcg capsule 100 mcg PO QAM 12/21/17 07/12/20 History magnesium oxide 400 mg PO QAM cap 12/21/17 07/12/20 History mometasone-formoterol HFA 200 2 puffs INH BID 12/21/17 07/12/20 History mcg-5 mcg/actuation aerosol inhaler nitroglycerin 0.4 mg sublingual 0.4 mg SL Q5M PRN 12/21/17 07/12/20 History tablet omeprazole 20 mg capsule,delayed 20 mg PO QAM 12/21/17 07/12/20 History release tramadol 50 mg tablet 50 mg PO Q6H PRN 12/21/17 07/12/20 History ergocalciferol (vitamin D2) 50,000 unit PO WK 04/12/19 07/12/20 History gabapentin 300 mg PO TID 04/12/19 07/12/20 History hyoscyamine sulfate [Levsin] 0.125 mg PO TID 04/12/19 07/12/20 History atorvastatin 80 mg PO PM 01/18/20 06/12/20 History clobetasol 1 applic TOPICAL BID 01/18/20 06/12/20 History potassium chloride 20 meq PO QAM 01/18/20 07/12/20 History blood-glucose meter #1 ea 02/21/20 05/01/20 Rx insulin aspart U-100 100 unit/mL See Rx Instructions CONTINUOUS 02/29/20 07/12/20 Rx subcutaneous solution SUBCUTANEOUS INFUSION DAILY #12 ml ammonium lactate 5 % lotion 1 applic TOPICAL DAILY PRN #226 g 04/19/20 06/12/20 Rx dulaglutide 1.5 mg/0.5 mL 3 mg SQ WK ml 05/03/20 06/12/20 History subcutaneous pen injector albuterol sulfate [Ventolin HFA] 2 puff INHALATION QID PRN 05/30/20 06/12/20 History doxycycline hyclate 100 mg tablet 100 mg PO bid #28 tab 06/08/20 06/12/20 Rx aspirin 81 mg PO DAILY 06/12/20 06/12/20 History lidocaine 1 patch TRANSDERMAL QAM 30 Days 06/29/20 07/12/20 Rx #30 ea metoprolol succinate 50 mg PO QPM 30 Days #30 tab 06/29/20 07/12/20 Rx metoprolol succinate 75 mg PO QAM 30 Days #90 tab 06/29/20 07/12/20 Rx torsemide 60 mg PO BID #180 tab 06/29/20 07/12/20 Rx collagenase clostridium histo. 250 1 applic TOPICAL DAILY #90 g 07/05/20 07/05/20 Rx unit/gram topical ointment warfarin 5 mg tablet 5 mg PO DAILY 07/05/20 07/05/20 History hydrocodone 10 mg-acetaminophen 15 ml PO Q8H PRN 07/12/20 07/12/20 History 325 mg/15 mL (15 mL) oral solution Past Med/Surg History Medical History Arthritis Asthma well controlled, daily shelter 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 Bacteremia due to group B Streptococcus CAD (coronary artery disease) Cardiac defibrillator in situ 2007 with replacement 03/2020. follows with Dr. Maya. CKD (chronic kidney disease) stage 3, GFR 30-59 ml/min Deformity of foot Depression Diabetes type 2, uncontrolled Diabetic peripheral neuropathy associated with type 2 diabetes mellitus Dyslipidemia GERD (gastroesophageal reflux disease) H/O osteomyelitis History of diabetic ulcer of foot Hx of myocardial infarction found on testing Hx of osteomyelitis Hx of sepsis 06/2019 Hypertension Hypokalemia Hypothyroidism Ischemic cardiomyopathy Adams fracture Base of left fifth metatarsal, nonhealing x years Lymphedema Morbid obesity Rectal bleeding Sleep apnea BIPAP Sustained VT (ventricular tachycardia) Venous stasis ulcer of right lower leg with edema of right lower leg Vitamin D deficiency Surgical History H/O cardiac radiofrequency ablation OCTOBER 2019 ([facility]) AT [facility] H/O foot surgery LEFT FOOT ULCER DEBRIDEMENT H/O shoulder surgery left History of cardiac cath V. tach -- no stent. 06/2019. unsure where it was done History of colonoscopy History of esophagogastroduodenoscopy (EGD) History of sinus surgery Hx of amputation of lesser toe Hx of tonsillectomy Family History Sister Family history of diabetes mellitus 2 Grandmother (Maternal) Family history of diabetes mellitus Grandfather (Maternal) Family history of diabetes mellitus Father Cancer Mother Cancer Other No family history of adverse response to anesthesia Social History Smoking Status: Never smoker Second Hand Exposure: No; Hx Alcohol Use: Yes Alcohol type: beer Hx Substance Use: No Preferred Language: [place] Communication Ability: Effective Hr Consultant Required: No Beliefs That Will Affect Care: None Current Living Situation: Spouse current occupational status: disabled Feels Safe at Home: Yes Assistive Devices: Glasses Results & Data Results & Data ([facility]) Vital Signs (Past 12 Hours) Vital Signs Temp Pulse Pulse Resp BP BP Pulse Ox 07/12/20 17:03 92 H 22 99 07/12/20 17:01 92 H 22 119/84 95 07/12/20 15:50 36.4 C L 104 H 20 125/48 L 100 Code Status & VTE Plan VTE Prophylaxis Plan VTE Prophylaxis will be ordered: Yes
[2020-07-12 18:02] LABS: Basophils # (auto) 0.02 K/uL (0-0.2); Basophils % (auto) 0.2 %; Eosinophils # (auto) 0.11 K/uL (0-0.5); Eosinophils % (auto) 1.3 %; Hematocrit (blood only) 36.1 % (42-52); Hemoglobin 11.6 g/dL (14.0-18.0); Immature Granulocytes # (auto) 0.04 K/uL (0.00-0.02); Immature Granulocytes % (auto) 0.5 %; Lymphocytes # (auto) 0.64 K/uL (1.2-3.4); Lymphocytes % (auto) 7.5 %; Mean Corpuscular Hemoglobin 28.1 pg (25-34); Mean Corpuscular Hgb Conc 32.1 g/dL (32-36); Mean Corpuscular Volume 87.4 fL (80-100); Mean Platelet Volume 8.5 fL (7.4-10.4); Monocytes # (auto) 1.07 K/uL (0.11-0.59); Monocytes % (auto) 12.5 %; Neutrophils # (auto) 6.66 K/uL (1.4-6.5); Platelet Count 317 K/uL (130-400); RDW Coefficient of Variation 17.6 % (11.5-14.5); RDW Standard Deviation 56.3 fL (36.4-46.3); Red Blood Count 4.13 M/uL (4.7-6.1); White Blood Count 8.54 K/uL (4.8-10.8)
[2020-07-12 18:12] LABS: INR 1.9 (0.9-1.1); Partial Thromboplastin Ratio 1.1; Partial Thromboplastin Time 30.2 Seconds (21.0-31.0); Prothrombin Time 18.5 Seconds (9.0-12.0)
[2020-07-12 18:20] LABS: Albumin Level 2.2 gm/dl (3.4-5.0); BUN Creatinine Ratio 25.8 (10-20); C Reactive Protein 9.1 mg/dl (0-0.29); Calcium 9.6 mg/dl (8.5-10.1); Est GFR (African American) 51.1; Est GFR (Non-African American) 44.1; Magnesium 2.2 mg/dl (1.8-2.4); Potassium 3.7 mmol/L (3.5-5.1)
[2020-07-12 18:25] LABS: Albumin Globulin Ratio 0.3 (0.9-2); Bilirubin,Total 0.8 mg/dl (0.2-1); Globulin 7.8 gm/dl (2.5-4.0)
--- NOTE | 2020-07-12 18:59 | History & Physical Report ---
Date of Service July 12, 2020 Assessment & Plan (1) Diabetic ulcer of left foot associated with type 2 diabetes mellitus, with fat layer exposed: History of poor compliance with medication and wound care, He was recently admitted with prolonged hospital stay secondary to diabetic left foot ulcer, underwent I&D , and antibiotic beads placement. Sent from wound clinic as worsening wound with wound dehiscence Admit to telemetry, start with IV daptomycin, ordered for wound care blood cultu re Consulted orthopedics patient is known to the service [facility] infectious disease consulted for antibiotic recommendation Wound care consult History of CHF with combined right and left heart failure. Difficult to assess volume status secondary to morbid obesity Lactic acid mildly elevated possible secondary to infection We will give gentle IV hydration Patient home diuretics will be resumed Type 2 diabetes poorly controlled on insulin pump Hold insulin pump during acute illness hospital admission Pharmacy consulted for glycemic management COVID-19 positive status No hypoxia or shortness of breath no fever or chills vitals stable Does not need any active treatment Continue airborne isolation precaution as per protocol Monitor History of A. fib: On metoprolol-dose was adjusted recently by cardiology On Coumadin INR 1.9, subcu heparin ordered till INR therapeutic, 2 CODE STATUS: Full code History of Present Illness Chief Complaint: Chief Complaint: Worsening left foot wound and referred by wound clinic. Primary Care Provider: Sherry Maya DO Primary Care Provider: Sherry Maya DO This is a 54-year-old male complex medical history of uncontrolled T2DM, chronic ischemic heart disease, obesity hypoventilation syndrome, chronic CHF, history of V. tach, history of DVT on warfarin, permanent pacemaker/AICD, NINA, HTN, HLD, diabetic neuropathy, hypothyroidism, morbid obesity who presents to ED at referral of wound care Patient is well-known to [facility] hospitalist service, had a prolonged hospital stay from 06/13/2020 to 06/28/2020 with diabetic foot ulcer, decompensated CHF, acute renal failure on chronic CKD. Underwent I&D by Dr. Bates for diabetic ulcer of left foot. Patient has been non compliant with nonweightbearing instruction on left foot Was seen at wound clinic shows complete wound dehiscence, sent to ER as patient will need inpatient admission with continued IV antibiotic orthopedics consult for possible I&D Allergies Allergy/AdvReac Type Severity Reaction Status Date / Time benzonatate AdvReac Intermediate choking, Verified 07/12/20 14:54 gagging Home Medications Medication Instructions Recorded Confirmed Type fluticasone propionate 50 2 sprays INTNAS BID gm 12/21/17 07/12/20 History mcg/actuation nasal spray,suspension levothyroxine 100 mcg capsule 100 mcg PO QAM 12/21/17 07/12/20 History magnesium oxide 400 mg PO QAM cap 12/21/17 07/12/20 History mometasone-formoterol HFA 200 2 puffs INH BID 12/21/17 07/12/20 History mcg-5 mcg/actuation aerosol inhaler nitroglycerin 0.4 mg sublingual 0.4 mg SL Q5M PRN 12/21/17 07/12/20 History tablet omeprazole 20 mg capsule,delayed 20 mg PO QAM 12/21/17 07/12/20 History release tramadol 50 mg tablet 50 mg PO Q6H PRN 12/21/17 07/12/20 History ergocalciferol (vitamin D2) 50,000 unit PO WK 04/12/19 07/12/20 History gabapentin 300 mg PO TID 04/12/19 07/12/20 History hyoscyamine sulfate [Levsin] 0.125 mg PO TID 04/12/19 07/12/20 History atorvastatin 80 mg PO PM 01/18/20 07/12/20 History clobetasol 1 applic TOPICAL BID 01/18/20 07/12/20 History potassium chloride 20 meq PO QAM 01/18/20 07/12/20 History blood-glucose meter #1 ea 02/21/20 07/12/20 Rx insulin aspart U-100 100 unit/mL See Rx Instructions CONTINUOUS 02/29/20 07/12/20 Rx subcutaneous solution SUBCUTANEOUS INFUSION DAILY #12 ml ammonium lactate 5 % lotion 1 applic TOPICAL DAILY PRN #226 g 04/19/20 07/12/20 Rx dulaglutide 1.5 mg/0.5 mL 1.5 mg SQ WK ml 05/03/20 07/12/20 History subcutaneous pen injector albuterol sulfate [Ventolin HFA] 2 puff INHALATION QID PRN 05/30/20 07/12/20 History doxycycline hyclate 100 mg tablet 100 mg PO bid #28 tab 06/08/20 07/12/20 Rx aspirin 81 mg PO DAILY 06/12/20 07/12/20 History metoprolol succinate 50 mg PO QPM 30 Days #30 tab 06/29/20 07/12/20 Rx metoprolol succinate 75 mg PO QAM 30 Days #90 tab 06/29/20 07/12/20 Rx torsemide 60 mg PO BID #180 tab 06/29/20 07/12/20 Rx collagenase clostridium histo. 250 1 applic TOPICAL DAILY #90 g 07/05/20 07/12/20 Rx unit/gram topical ointment hydrocodone 10 mg-acetaminophen 15 ml PO Q8H PRN 07/12/20 07/12/20 History 325 mg/15 mL (15 mL) oral solution warfarin 1 - 2 mg PO UD 07/12/20 07/12/20 History Past Med/Surg History Medical History Arthritis Asthma well controlled, daily nursing home 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 Bacteremia due to group B Streptococcus CAD (coronary artery disease) Cardiac defibrillator in situ 2007 with replacement 03/2020. follows with Dr[address] Maya. CKD (chronic kidney disease) stage 3, GFR 30-59 ml/min Deformity of foot Depression Diabetes type 2, uncontrolled Diabetic peripheral neuropathy associated with type 2 diabetes mellitus Dyslipidemia GERD (gastroesophageal reflux disease) H/O osteomyelitis History of diabetic ulcer of foot Hx of myocardial infarction found on testing Hx of osteomyelitis Hx of sepsis 06/2019 Hypertension Hypokalemia Hypothyroidism Ischemic cardiomyopathy Adams fracture Base of left fifth metatarsal, nonhealing x years Lymphedema Morbid obesity Rectal bleeding Sleep apnea BIPAP Sustained VT (ventricular tachycardia) Venous stasis ulcer of right lower leg with edema of right lower leg Vitamin D deficiency Surgical History H/O cardiac radiofrequency ablation OCTOBER 2019 ([facility]) AT [facility] H/O foot surgery LEFT FOOT ULCER DEBRIDEMENT H/O shoulder surgery left History of cardiac cath V. tach -- no stent. 06/2019. unsure where it was done History of colonoscopy History of esophagogastroduodenoscopy (EGD) History of sinus surgery Hx of amputation of lesser toe Hx of tonsillectomy Family History Sister Family history of diabetes mellitus 2 Grandmother (Maternal) Family history of diabetes mellitus Grandfather (Maternal) Family history of diabetes mellitus Father Cancer Mother Cancer Other No family history of adverse response to anesthesia Social History Smoking Status: Never smoker Second Hand Exposure: No; Do You Dip or Chew Tobacco: No; Tobacco Cessation Education Requested by Patient: No Hx Alcohol Use: Yes Alcohol type: beer Hx Substance Use: No Preferred Language: [place] Communication Ability: Effective Hotel Associate Required: No Beliefs That Will Affect Care: None Current Living Situation: Spouse current occupational status: disabled Other Information That Helps Us Care for You: No Feels Safe at Home: Yes Safety Concerns: Feels Safe At This Time Assistive Devices: None Review of Systems Review of Systems: All systems reviewed & are unremarkable except as noted in Subjective Physical Exam Constitutional: + morbidly obese; not ill appearing Eyes: PERRL, conjunctivae normal, anicteric sclerae ENMT: external ear and nose normal, oropharynx normal Respiratory: no respiratory distress Auscultation: + diminished lung sounds and + crackles (Minimal bibasilar crackles) Cardiovascular: Rate/Rhythm: regular rate and regular rhythm Heart Sounds: no murmur Extremities: + edema (Bilateral leg swelling with 2-3+ edema,left lower extremity leg is bandaged) Gastrointestinal (Abdomen): Inspection/Auscultation: + abdomen distended and normal bowel sounds Percussion/Palpation: abdomen soft; abdomen nontender Musculoskeletal: Extremities: + foot abnormality (open wound on left foot with serosanguinous drainage) Left No acute arthritis in any of the joint. Neurologic: PERRL, EOMI, accommodation nl, no face palsy, no dysarthria Alert, awake and oriented x3 Psychiatric: A+Ox3, euthymic affect Lymphatic: no cervical or axillary lymphadenopathy Results & Data Results & Data ([facility]) Vital Signs (Past 12 Hours) Vital Signs Temp Pulse Pulse Resp BP BP Pulse Ox 07/12/20 18:40 89 22 114/59 L 98 07/12/20 17:03 92 H 22 99 07/12/20 17:01 92 H 22 119/84 95 07/12/20 15:50 36.4 C L 104 H 20 125/48 L 100 Code Status & VTE Plan VTE Prophylaxis Plan VTE Prophylaxis will be ordered: Yes
[2020-07-12] MEDS ORDERED: WARFARIN SOD 5 MG TAB PO ONE (19:00)
[2020-07-12] MEDS ORDERED: GLUCOSE 40% GEL 15 GM TUBE PO PRN (20:05)
[2020-07-12] MEDS ORDERED: CONSULT PHARMACY STA (20:05)
[2020-07-12] MEDS ORDERED: ALUMINUM/MAGNESIUM SUSP 30 ML UDC PO PRN (20:05)
[2020-07-12] MEDS ORDERED: NITROGLYCERIN SL 0.4 MG/TAB TAB SL PRN (20:05)
[2020-07-12] MEDS ORDERED: GLUCAGON FOR INJ 1 MG VIAL SQ PRN (20:05)
[2020-07-12] MEDS ORDERED: PIPERACILL/TAZOBAC CONSULT ACTIVE PRN (20:05)
[2020-07-12] MEDS ORDERED: SODIUM CHLORIDE 0.9% 1000ML 1,000 ML IV SCH (20:05)
[2020-07-12] MEDS ORDERED: ONDANSETRON INJ 2 MG/ML 2 ML VIAL IV PRN (20:05)
[2020-07-12] MEDS ORDERED: GLUCOSE 10 TABS/TUBE PO PRN (20:05)
[2020-07-12] MEDS ORDERED: PIPERACILLIN/TAZOBACTAM 3.375 GM in DEXTROSE 5% 100 ML IV SCH (20:05)
[2020-07-12] MEDS ORDERED: MAGNESIUM HYDROXIDE SUSP 30 ML UDC PO PRN (20:05)
[2020-07-12] MEDS: CARBOHYDRATES FOR HYPOGLYCEMIA PO PRN ×2 (20:10→20:28)
--- NOTE | 2020-07-12 20:11 | XRay Report ---
XR chest 1V portable HISTORY: Shortness of breath. COMPARISON: Chest 06/15/2020. FINDINGS: No pneumothorax. The heart remains mildly enlarged. There is mild central pulmonary vascula r congestion without overt edema. There is left-sided pacemaker/defibrillator. No pleural effusions. No new focal lung consolidations to suggest pneumonia. IMPRESSION: Cardiomegaly with mild central pulmonary vascular congestion. ACT 112: Negative or not required by law. Electronically signed by: Huey Thorne M.D. 07/12/2020 8:10 PM
[2020-07-12] MEDS ORDERED: PHARMACY GLYCEMIC MGMT CONSULT SCH (20:18)
--- NOTE | 2020-07-12 20:29 | Ultrasound Report ---
LEFT LOWER EXTREMITY VENOUS DOPPLER HISTORY: Left leg swelling, recent surg COMPARISON STUDY: None. FINDINGS: There is normal compressibility, flow, and augmentation within the left lower extremity kaitlin p venous system. IMPRESSION: No DVT within the left lower extremity. ACT 112: Negative or not required by law. Electronically signed by: Huey Thorne M.D. 07/12/2020 8:28 PM
--- NOTE | 2020-07-12 20:29 | XRay Report ---
XR foot LT min 3V routine CLINICAL HISTORY: left foot infx. Recent surg with dehiscence COMPARISON STUDY: Left foot 02/07/2020. FINDINGS: There are severe diffuse soft tissue swelling. Focal ulceration/wound within the lateral as pect of the midfoot. Small plantar and posterior calcaneal spurs. Mild vascular calcifications are no charles. No destructive change to suggest osteomyelitis. There is progressive healing of the base of the left fifth metatarsal fracture. No acute fractures identified. IMPRESSION: 1. Focal ulceration/wound within the lateral aspect of the midfoot. 2. Severe diffuse soft tissue swelling. 3. No destructive changes to suggest osteomyelitis. 4. Near-complete healing at the base of the left fifth metatarsal fracture. ACT 112: Negative or not required by law. Electronically signed by: Huey Thorne M.D. 07/12/2020 8:28 PM
[2020-07-12] MEDS ORDERED: PIPERACILLIN/TAZOBACTAM 4.5 GM in DEXTROSE 5% 100 ML IV ONE (21:00)
[2020-07-12] MEDS: traMADol HCL 50 MG TABLET PO PRN (21:45)
[2020-07-12 21:46] LABS: Appearance Urine Clear (Clear); Bilirubin Urine Negative (Negative); Blood Urine Negative (Negative); Color Urine Yellow; Glucose Urine UA Negative (Negative); Ketones Urine Negative (Negative); Leukocyte Esterase Urine Negative (Negative); Nitrite Urine Negative (Negative); Protein Urine Negative (Negative); Specific Gravity Urine 1.015 (1.000-1.030); Urobilinogen Urine Negative (Negative); pH Urine 5.5 (4.5-7.5)
[2020-07-12] MEDS: TORSEMIDE 20 MG TAB PO SCH (21:47)
[2020-07-12] MEDS: CLOBETASOL PROPIONATE 0.05% OINT 15 GM TUBE EXT SCH (21:47)
[2020-07-12] MEDS: FLUTICASONE PROPIONATE NA SPR 16 GM BTL NAE SCH (21:48)
[2020-07-12] MEDS: GABAPENTIN 300 MG CAP PO SCH (21:49)
[2020-07-12] MEDS: HYOSCYAMINE SULFATE 0.125 MG TAB PO SCH (21:49)
[2020-07-12] MEDS: METOPROLOL SUCC 50MG EXT REL TAB PO SCH (21:51)
[2020-07-12] MEDS: HEPARIN SOD 5,000 UNIT/0.5 ML VIAL SQ SCH (21:52)
[2020-07-12] MEDS: INSULIN ASPART 100 UNITS/ML 3 ML PEN SC SCH (22:26)
--- NOTE | 2020-07-12 22:34 | Emergency Department Note ---
History of Present Illness General Chief complaint: Wound Stated complaint: WOUND ON L LEG Time Seen by Provider: 07/12/20 16:23 History of Present Illness Maximum Pain Intensity: 10 This is a medically complex 54-year-old male presenting to the emergency department for evaluation of left foot wound. The patient is with history of uncontrolled diabetes, ischemic heart disease, obesity, pacemaker placement, chronic kidney disease, and A. fib on Coumadin. The patient had a prolonged h ospitalization roughly 1 month ago for a left foot infection that ultimately underwent incision and drainage by Dr. Bates with antibiotic bead placement. The patient had been doing well immediately after this procedure and has home health and outpatient wound care services. According to additional outside sources, the patient has been walking on this foot. He has subsequently suffered wound dehiscence of his surgical site and his antibiotic beads have fallen out. He did follow-up with the wound care clinic today, who note worsening depth and deterioration of his wound. The wound clinic did attempt to contact orthopedics and ultimately referred the patient to the emergency department for further management. The patient has not had fevers or chills. He reports that he is taking his medication, including doxycycline, as scheduled. The patient does have an old wound culture that did grow MSSA. There is no known history of MRSA infection. The patient rates his current discomfort a 10/10. Home Medications Medication Instructions Recorded Confirmed Type fluticasone propionate 50 2 sprays INTNAS BID gm 12/21/17 07/12/20 History mcg/actuation nasal spray,suspension levothyroxine 100 mcg capsule 100 mcg PO QAM 12/21/17 07/12/20 History magnesium oxide 400 mg PO QAM cap 12/21/17 07/12/20 History mometasone-formoterol HFA 200 2 puffs INH BID 12/21/17 07/12/20 History mcg-5 mcg/actuation aerosol inhaler nitroglycerin 0.4 mg sublingual 0.4 mg SL Q5M PRN 12/21/17 07/12/20 History tablet omeprazole 20 mg capsule,delayed 20 mg PO QAM 12/21/17 07/12/20 History release tramadol 50 mg tablet 50 mg PO Q6H PRN 12/21/17 07/12/20 History ergocalciferol (vitamin D2) 50,000 unit PO WK 04/12/19 07/12/20 History gabapentin 300 mg PO TID 04/12/19 07/12/20 History hyoscyamine sulfate [Levsin] 0.125 mg PO TID 04/12/19 07/12/20 History atorvastatin 80 mg PO PM 01/18/20 07/12/20 History clobetasol 1 applic TOPICAL BID 01/18/20 07/12/20 History potassium chloride 20 meq PO QAM 01/18/20 07/12/20 History blood-glucose meter #1 ea 02/21/20 07/12/20 Rx insulin aspart U-100 100 unit/mL See Rx Instructions CONTINUOUS 02/29/20 07/12/20 Rx subcutaneous solution SUBCUTANEOUS INFUSION DAILY #12 ml ammonium lactate 5 % lotion 1 applic TOPICAL DAILY PRN #226 g 04/19/20 07/12/20 Rx dulaglutide 1.5 mg/0.5 mL 1.5 mg SQ WK ml 05/03/20 07/12/20 History subcutaneous pen injector albuterol sulfate [Ventolin HFA] 2 puff INHALATION QID PRN 05/30/20 07/12/20 History doxycycline hyclate 100 mg tablet 100 mg PO bid #28 tab 06/08/20 07/12/20 Rx aspirin 81 mg PO DAILY 06/12/20 07/12/20 History metoprolol succinate 50 mg PO QPM 30 Days #30 tab 06/29/20 07/12/20 Rx metoprolol succinate 75 mg PO QAM 30 Days #90 tab 06/29/20 07/12/20 Rx torsemide 60 mg PO BID #180 tab 06/29/20 07/12/20 Rx collagenase clostridium histo. 250 1 applic TOPICAL DAILY #90 g 07/05/20 07/12/20 Rx unit/gram topical ointment hydrocodone 10 mg-acetaminophen 15 ml PO Q8H PRN 07/12/20 07/12/20 History 325 mg/15 mL (15 mL) oral solution warfarin 1 - 2 mg PO UD 07/12/20 07/12/20 History Allergies Allergy/AdvReac Type Severity Reaction Status Date / Time benzonatate AdvReac Intermediate choking, Verified 07/12/20 14:54 gagging Past Med/Surg History Medical History Arthritis Asthma well controlled, daily long-term 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 Bacteremia due to group B Streptococcus CAD (coronary artery disease) Cardiac defibrillator in situ 2007 with replacement 03/2020. follows with Dr. Maya. CKD (chronic kidney disease) stage 3, GFR 30-59 ml/min Deformity of foot Depression Diabetes type 2, uncontrolled Diabetic peripheral neuropathy associated with type 2 diabetes mellitus Dyslipidemia GERD (gastroesophageal reflux disease) H/O osteomyelitis History of diabetic ulcer of foot Hx of myocardial infarction found on testing Hx of osteomyelitis Hx of sepsis 06/2019 Hypertension Hypokalemia Hypothyroidism Ischemic cardiomyopathy Adams fracture Base of left fifth metatarsal, nonhealing x years Lymphedema Morbid obesity Rectal bleeding Sleep apnea BIPAP Sustained VT (ventricular tachycardia) Venous stasis ulcer of right lower leg with edema of right lower leg Vitamin D deficiency Surgical History H/O cardiac radiofrequency ablation OCTOBER 2019 (TACHY) AT [facility] H/O foot surgery LEFT FOOT ULCER DEBRIDEMENT H/O shoulder surgery left History of cardiac cath V. tach -- no stent. 06/2019. unsure where it was done History of colonoscopy History of esophagogastroduodenoscopy (EGD) History of sinus surgery Hx of amputation of lesser toe Hx of tonsillectomy Family History Sister Family history of diabetes mellitus 2 Grandmother (Maternal) Family history of diabetes mellitus Grandfather (Maternal) Family history of diabetes mellitus Father Cancer Mother Cancer Other No family history of adverse response to anesthesia Social History Smoking Status: Never smoker Second Hand Exposure: No; Do You Dip or Chew Tobacco: No; Tobacco Cessation Education Requested by Patient: No Hx Alcohol Use: Yes Alcohol type: beer Hx Substance Use: No Preferred Language: Macedonian Communication Ability: Effective Real Estate Closer Required: No Beliefs That Will Affect Care: None Current Living Situation: Spouse current occupational status: disabled Other Information That Helps Us Care for You: No Feels Safe at Home: Yes Safety Concerns: Feels Safe At This Time Assistive Devices: None Review of Systems A total of 10 systems reviewed and were otherwise negative Physical Exam Vital Signs Vital Signs - 24 hr 07/12/20 15:50 07/12/20 17:01 07/12/20 17:03 Temperature 36.4 C L Temperature Source Temporal Artery Scan Pulse Rate 104 H 92 H Pulse Rate [Apical] 92 H Pulse Rhythm Regular Pulse Strength Normal Respiratory Rate 20 22 22 Respiratory Effort / Characteristics Non-Labored Spontaneous Non-Labored Spontaneous Respiratory Depth Normal Normal Respiratory Pattern Regular Regular Blood Pressure 125/48 L Blood Pressure [Right Arm] 119/84 Blood Pressure Mean 73 Blood Pressure Mean [Right Arm] 95 Blood Pressure Position Sitting Pulse Oximetry 100 95 99 Oxygen Delivery Method Room Air Room Air Room Air Sepsis Recent Fever Within 48 Hours No Sepsis New/Unexplained Change in Mental Status No Sepsis Action Taken by Nursing No Action Required VITALS: Vitals are noted on the nurse's note and reviewed by myself. Vital signs with slight tachycardia. GENERAL: Morbidly obese and unwell appearing white male who seems much older than his stated age of 54. He is overall in poor appearing health. HEAD: Normocephalic atraumatic. NECK: Supple without nuchal rigidity. No lymphadenopathy. No thyromegaly. Cervical spine is nontender. HEART: Irregularly irregular LUNGS: Clear to auscultation bilaterally without wheezes, rales or rhonchi. No retractions or accessory muscle use. ABDOMEN: Positive normal bowel sounds x 4. Soft, protuberant, and nontender. MUSCULOSKELETAL: There is very concerning wound to the lateral left foot measuring approximately 2 x 5 x 1 cm in size. This is with moderate serosanguineous discharge. Intact sutures are noted to the more medial aspect that appear to be consistent with dehisced wound. No distinct abscess identified. Bilateral legs are exceptionally edematous and appear consistent with chronic venous stasis. NEURO: Patient was alert and oriented to person place and time. CN II through XII grossly intact. Course Administered Medications Clobetasol Propionate (Clobetasol Propionate 0.05% Oint 15 Gm Tube) 1 appln EXT BID [facility] Stop: 08/11/20 20:59 Last Admin: 07/12/20 21:47 Dose: 1 appln Documented by: [id number] Fluticasone Propionate (Fluticasone Propionate Na Spr 16 Gm Btl) 2 sprays DAIN BID [facility] Stop: 08/11/20 20:59 Last Admin: 07/12/20 21:48 Dose: 2 sprays Documented by: [id number] Gabapentin (Gabapentin 300 Mg Cap) 300 mg PO TID [facility] Stop: 08/11/20 20:59 Last Admin: 07/12/20 21:49 Dose: 300 mg Documented by: [id number] Heparin Sodium (Porcine) (Heparin Sod 5,000 Unit/0.5 Ml Vial) 7,500 units SQ Q8 [facility] Stop: 08/11/20 21:59 Last Admin: 07/12/20 21:52 Dose: 7,500 units Documented by: [id number] Hyoscyamine (Hyoscyamine Sulfate 0.125 Mg Tab) 0.125 mg PO TID [facility] Stop: 08/11/20 20:59 Last Admin: 07/12/20 21:49 Dose: 0.125 mg Documented by: [id number] Sodium Chloride (Nss 1000ml) 1,000 mls @ 100 mls/hr IV .Q10H [facility] Stop: 07/13/20 06:04 Last Admin: 07/12/20 21:52 Dose: 100 mls/hr Documented by: [id number] Insulin Aspart (Insulin Aspart 100 Units/Ml 3 Ml Pen) 0 units SC ACHS [facility]; Protocol Stop: 08/11/20 20:59 Last Admin: 07/12/20 22:26 Dose: Not Given Documented by: [id number] Metoprolol Succinate (Metoprolol Succ 50mg Ext Rel Tab) 50 mg PO QPM [facility] Stop: 08/11/20 20:59 Last Admin: 07/12/20 21:51 Dose: 50 mg Documented by: [id number] Miscellaneous (Carbohydrates For Hypoglycemia ) 15 - 30 gm PO UD PRN PRN Reason: Hypoglycemia Protocol Stop: 08/11/20 20:04 Last Admin: 07/12/20 20:28 Dose: 15 gm Documented by: [id number] Admin: 07/12/20 20:10 Dose: 15 gm Documented by: [id number] Torsemide (Torsemide 20 Mg Tab) 60 mg PO BID [facility] Stop: 08/11/20 20:59 Last Admin: 07/12/20 21:47 Dose: 60 mg Documented by: [id number] Tramadol HCl (Tramadol Hcl 50 Mg Tablet) 50 mg PO Q6H PRN PRN Reason: pain Stop: 08/11/20 20:04 Last Admin: 07/12/20 21:45 Dose: 50 mg Documented by: [id number] Discontinued Medications Daptomycin 675 mg/ Syringe 13.5 mls @ 6.75 mls/min IV NOW ONE; Protocol Stop: 07/12/20 17:06 Last Admin: 07/12/20 18:38 Dose: 6.75 mls/min Documented by: [id number] Piperacillin Sod/Tazobactam (Sod 4.5 gm/ Dextrose) 120 mls @ 200 mls/hr IV NOW ONE; Protocol Stop: 07/12/20 21:35 Last Admin: 07/12/20 21:51 Dose: 200 mls/hr Documented by: [id number] Warfarin Sodium (Warfarin Sod 5 Mg Tab) 5 mg PO ONE ONE Stop: 07/12/20 19:01 Last Admin: 07/12/20 19:07 Dose: 5 mg Documented by: [id number] Medical Decision Making Differential Diagnosis Differential diagnosis includes: Etiologies such as cellulitis, abscess, osteomyelitis, MRSA infection, DVT, necrotizing fasciitis, dermatitis, drug eruption, as well as others were entertained Laboratory Data Result diagrams: 07/12/20 17:43 07/12/20 17:43 Lab Results 07/12/20 07/12/20 Range/Units 16:52 16:52 COVID-19 Eval Order Covid19 IDNow atMDEC SARS-CoV-2, RNA, NAAT POSITIVE A* (NEGATIVE) Imaging Data Radiologist's Impression: XR foot LT min 3V routine CLINICAL HISTORY: left foot infx. Recent surg with dehiscence COMPARISON STUDY: Left foot 02/07/2020. FINDINGS: There are severe diffuse soft tissue swelling. Focal ulceration/wound within the lateral aspect of the midfoot. Small plantar and posterior calcaneal spurs. Mild vascular calcifications are noted. No destructive change to suggest osteomyelitis. There is progressive healing of the base of the left fifth metatarsal fracture. No acute fractures identified. IMPRESSION: 1. Focal ulceration/wound within the lateral aspect of the midfoot. 2. Severe diffuse soft tissue swelling. 3. No destructive changes to suggest osteomyelitis. 4. Near-complete healing at the base of the left fifth metatarsal fracture. LEFT LOWER EXTREMITY VENOUS DOPPLER HISTORY: Left leg swelling, recent surg COMPARISON STUDY: None. FINDINGS: There is normal compressibility, flow, and augmentation within the le ft lower extremity deep venous system. IMPRESSION: No DVT within the left lower extremity. ACT 112: Negative or not required by law. ECG Data Attestation: I personally reviewed and interpreted this ECG as follows: Indication: + other (Sepsis) Additional Comments: Atrial fibrillation @96 bpm Possible Anterior infarct (cited on or before 13-JUN-2020) T wave abnormality, consider lateral ischemia When compared with ECG of 13-JUN-2020 00:48: Atrial fibrillation has replaced Sinus rhythm Left anterior fascicular block is no longer Present MDM Narrative Physical exam and history were performed. Nursing notes, EMR, and Medication List were personally reviewed. Patient appears to have significant medical comorbidities with a wound of his left foot. This does have recent incision and drainage and appears grossly open and dehisced. I am concerned much of this is from patient nonadherence to medical recommendations, specifically walking on this foot after surgery. IV access was established and labs were obtained. Blood cultures were gathered. The patient was gently hydrated with normal saline as his volume status is difficult to determine based on his body habitus. After discussion with my attending and pharmacy we did begin him on daptomycin. An order was placed for continuous cardiac monitoring. The monitor shows a rate of 99 with atrial fib rhythm. The case was discussed with on-call orthopedics, Dr Sarah, who is covering for Dr. Bates. Recommendation at this time is for antibiotics and imaging to better plan for the next appropriate step. The patient will need MRI of the foot, however he is with a pacer and [employer] will need to put his pacer in MRI mode. This will likely happen tomorrow, but order was made. X-ray and ultrasound were also performed. The patient's blood work is as above and was reviewed. He does not have a significantly elevated white blood cell count or gross anemia. Sed rate and CRP are both markedly elevated. INR is subtherapeutic at 1.9. Glucose was low and we did feed the patient here in the ER. Lactic is elevated at 2.4 concerning for sepsis. Transaminases are not diagnostic. Blood cultures are pending. Covid swab was performed and was POSITIVE. The patient was negative for Covid on 06/12/2020. He is without classic Covid symptoms at this time and was cared for under contact precautions after identifying this. The patient's x-ray and ultrasound were reviewed by myself and radiology. He does not have DVT on ultrasound and x-ray is without distinct evidence of osteomyelitis. Overall the patient does not appear well for discharge home. He seems to be septic from his wound and is COVID-19 positive. He will likely need further orthopedic evaluation and possibly surgery before he can be discharged. [facility] who did evaluate the patient here in the ER. Please see their dictation for further patient course, plan, and disposition. The chart was completed utilizing [employer] Speech Voice Recognition Software. Grammatical errors, random word insertions, pronoun errors, and incomplete sentences are an occasional consequence of this system due to software limitations, ambient noise, and hardware issues. Any formal questions or concerns about the content, text, or information contained within the body of this dictation should be directly addressed to the provider for clarification. . Impression & Plan Sepsis, Diabetic ulcer of left foot associated with type 2 diabetes mellitus, with fat layer exposed, Foot infection, SARS-CoV-2 positive Discharge Plan Visit Data Chief Complaint: Wound Stated Complaint: WOUND ON L LEG ED Provider: Tomy Thomas ED Midlevel Provider: Andres Rosa Discharge Problem: Sepsis, Diabetic ulcer of left foot associated with type 2 diabetes mellitus, with fat layer exposed, Foot infection, SARS-CoV-2 positive Patient Disposition: Admitted As Inpatient Discharge Instructions Interventions: ED Discharge Assessment Last Done: 07/12/20 19:09
[2020-07-12] MEDS ORDERED: HYDROmorphone INJ 0.5 MG/0.5 ML SYR IV STA (22:57)
[2020-07-13] MEDS: HYDROmorphone INJ 1 MG/ML SYRINGE IV PRN ×4 (02:18→19:42)
[2020-07-13] MEDS: PIPERACILLIN/TAZOBACTAM 4.5 GM in DEXTROSE 5% 100 ML IV SCH ×3 (02:18→17:30)
[2020-07-13] MEDS: FLUTICASONE/VILANTEROL 200/25MCG 14 PUFFS/INHALER INH SCH ×2 (05:20→08:32)
[2020-07-13] MEDS: LEVOTHYROXINE SODIUM 100 MCG TABLET PO SCH (05:37)
[2020-07-13] MEDS: HEPARIN SOD 5,000 UNIT/0.5 ML VIAL SQ SCH (05:37)
[2020-07-13 06:28] LABS: Basophils # (auto) 0.03 K/uL (0-0.2); Basophils % (auto) 0.4 %; Eosinophils # (auto) 0.06 K/uL (0-0.5); Eosinophils % (auto) 0.8 %; Hematocrit (blood only) 36.1 % (42-52); Hemoglobin 11.4 g/dL (14.0-18.0); Immature Granulocytes # (auto) 0.03 K/uL (0.00-0.02); Immature Granulocytes % (auto) 0.4 %; Lymphocytes # (auto) 0.56 K/uL (1.2-3.4); Lymphocytes % (auto) 7.4 %; Mean Corpuscular Hemoglobin 27.7 pg (25-34); Mean Corpuscular Hgb Conc 31.6 g/dL (32-36); Mean Corpuscular Volume 87.6 fL (80-100); Mean Platelet Volume 8.6 fL (7.4-10.4); Monocytes # (auto) 1.11 K/uL (0.11-0.59); Monocytes % (auto) 14.7 %; Neutrophils # (auto) 5.78 K/uL (1.4-6.5); Neutrophils % (auto) 76.3 %; Platelet Count 315 K/uL (130-400); RDW Coefficient of Variation 17.7 % (11.5-14.5); RDW Standard Deviation 56.9 fL (36.4-46.3); Red Blood Count 4.12 M/uL (4.7-6.1); White Blood Count 7.57 K/uL (4.8-10.8)
[2020-07-13 06:38] LABS: INR 2.1 (0.9-1.1); Prothrombin Time 19.7 Seconds (9.0-12.0)
[2020-07-13 06:56] LABS: Albumin Level 2.1 gm/dl (3.4-5.0); BUN Creatinine Ratio 22.6 (10-20); Calcium 8.8 mg/dl (8.5-10.1); Creatinine Clr Calc Pharmacy 78.9 ml/min; Est GFR (African American) 51.9; Est GFR (Non-African American) 44.7; Magnesium 2.1 mg/dl (1.8-2.4); Potassium 3.7 mmol/L (3.5-5.1)
[2020-07-13 07:01] LABS: Albumin Globulin Ratio 0.3 (0.9-2); Bilirubin,Total 1.1 mg/dl (0.2-1); Globulin 7.5 gm/dl (2.5-4.0); Total Protein 9.6 gm/dl (6.4-8.2)
[2020-07-13] MEDS: INSULIN ASPART 100 UNITS/ML 3 ML PEN SC SCH ×5 (08:20→23:54)
[2020-07-13] MEDS: traMADol HCL 50 MG TABLET PO PRN (08:32)
[2020-07-13] MEDS: ASPIRIN 81 MG ECTAB PO SCH (08:32)
[2020-07-13] MEDS ORDERED: INSULIN GLARGINE SOLOSTAR 100 UNITS/ML 3 ML PEN SC STA (08:32)
[2020-07-13] MEDS: METOPROLOL SUCC 25MG EXT REL TAB PO SCH (08:33)
[2020-07-13] MEDS: HYOSCYAMINE SULFATE 0.125 MG TAB PO SCH ×3 (08:33→21:25)
[2020-07-13] MEDS: TORSEMIDE 20 MG TAB PO SCH ×2 (08:33→21:26)
[2020-07-13] MEDS: MAGNESIUM OXIDE 400 MG TAB PO SCH (08:33)
[2020-07-13] MEDS: PANTOprazole 40 MG TAB PO SCH (08:33)
[2020-07-13] MEDS: GABAPENTIN 300 MG CAP PO SCH ×3 (08:33→21:25)
[2020-07-13] MEDS: FLUTICASONE PROPIONATE NA SPR 16 GM BTL NAE SCH ×2 (08:34→21:24)
[2020-07-13] MEDS: COLLAGENASE OINT 30 GM TUBE TOP SCH (08:34)
[2020-07-13] MEDS: CLOBETASOL PROPIONATE 0.05% OINT 15 GM TUBE EXT SCH ×2 (08:34→21:26)
[2020-07-13 08:38] LABS: Estimated Average Glucose 171 mg/dl; Hemoglobin A1C 7.6 % (4.5-5.6)
[2020-07-13] MEDS ORDERED: INSULIN ASPART 100 UNITS/ML 3 ML PEN SC ONE (08:45)
--- NOTE | 2020-07-13 08:52 | Ultrasound Report ---
ULTRASOUND LEFT LOWER EXTREMITY ARTERIAL CLINICAL HISTORY: Left leg pain. COMPARISON STUDY: Bilateral lower extremity arterial ultrasound dated 06/07/2019. TECHNIQUE: Real-time, grayscale, and color Doppler sonography of the arteries of the left lower extre mity is performed from the inguinal crease to the foot. The examination is significantly degraded by large body habitus and lower extremity wounds. FINDINGS: There are triphasic arterial waveforms in the common femoral artery with velocities measuri ng up to 161 cm/s. Mildly elevated velocities are suggested within the left external iliac artery barry suring up to 203 cm/s. The profundus femoris artery is patent. There are triphasic ureter waveforms s een throughout the superficial femoral artery. There are mildly elevated velocities in the midportion measuring up to 216 cm/s. The popliteal artery is patent with velocities measuring up to 88 cm/s. Th ere is two-vessel runoff to the foot. The mid to distal left peroneal vessels were not visualized, po ssibly due to severe edema. Velocities within the calf arteries measure up to 160 cm/s. The dorsalis pedis artery is patent with velocities measuring up to 118 cm/s. Soft tissue edema is noted in the ca lf. IMPRESSION: 1. Mildly elevated velocities within the midportion of the left superficial femoral artery and the le ft external iliac artery suggests some degree of stenosis. 2. The mid to distal peroneal artery is not well-visualized, which may be related to vessel occlusion versus significant overlying edema. Dictated: 07/13/2020 7:42 AM Transcribed: 07/13/2020 8:23 AM Rabia [id number] [email or web address] Electronically signed by: Lukas Trivedi M.D. 07/13/2020 8:51 AM
--- NOTE | 2020-07-13 11:36 | Pharmacy Report ---
Pharmacy Glycemic Short Note 2 - Date of Service July 13, 2020 - Glycemic Short BSG Results (Last 24 hours): 07/12/20 07/12/20 07/12/20 17:43 20:09 20:25 Glucose 55 L POC Glucose 64 L* 63 L* 07/12/20 07/12/20 07/13/20 20:40 21:58 06:15 Glucose 176 H POC Glucose 71 82 07/13/20 07:43 Glucose POC Glucose 179 H OUTPATIENT ANTIDIABETIC REGIMEN: * Toujeo/Humalog listed along with Novolog pump - clarified with patient. He is only on pump as follows: * 9.4 units/hr basal * CHO coverage at 1 unit for every ~1-3 g CHO consumed * Additional correction based on "trends" - patient tired on interview and not willing/able to discuss further * Jardiance * Trulicity * HbA1c 8.1% on 06/13/20 ASSESSMENT: * 54 yo M with T2DM known to our glycemic service from recent lengthy admission 06/13-06/29. Will base current regimen on trend in BSG's from this admission * Patient required basal insulin split evenly BID previously , however patient reports pump was turned off last night, but no Lantus was given (due to RN concern last night per AM pass-on). BSG's have now rebounded from hypoglycemia yesterday to >300 mg/dL, likely due to basal insufficiency. Gave cautious dose this AM due to recent hypoglycemia, but now that patient reported pump has been off, will give supplmental Lantus to more aggressive full daily dose required previous admission * IVP x1 as BSG's likely to remain elevated until basal insulin can be on-board * Will resume Novolog parameters similar to previous admission, on the tighter side as patient likely requires more insulin at this time PLAN FOR INPATIENT GLYCEMIC CONTROL: * Hold all outpatient diabetes medications * Insulin regular 10 units IVP x1 * Basal insulin * Lantus 65 units SQ this AM and 20 units with lunch. Ongoing based on BSG - likely to eventually split evenly BID * Bolus insulin * NovoLog per scale ACHS or Q6hrs while NPO * Goal Range: Low 110 mg/dL - High 140 mg/dL * Correction Factor: 15 mg/dL/unit * Nutritional / Prandial insulin per carb ratio of 1 unit per 2 grams CHO consumed PLAN FOR DISCHARGE: * tbd
[2020-07-13] MEDS ORDERED: INSULIN HUMAN REGULAR PER UNIT 10 UNITS in SYRINGE 9.9 ML IV STA (12:03)
[2020-07-13] MEDS ORDERED: INSULIN GLARGINE SOLOSTAR 100 UNITS/ML 3 ML PEN SC ONE ×2 (12:15→21:00)
[2020-07-13] MEDS: CARBOHYDRATES FOR HYPOGLYCEMIA PO PRN (16:50)
[2020-07-13] MEDS ORDERED: DAPTOmycin 675 MG in SYRINGE 0 ML IV SCH (18:00)
--- NOTE | 2020-07-13 19:00 | Hospitalist Progress Note ---
Date of Service July 13, 2020 Assessment & Plan (1) Diabetic ulcer of left foot associated with type 2 diabetes mellitus, with fat layer exposed: History of poor compliance with medication and wound care, He was recently admitted with prolonged hospital stay secondary to diabetic left foot ulcer, underwent I&D , and antibiotic beads placement. 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 Difficult to assess volume status secondary to morbid obesity Lactic acid level normalized, Continue to monitor volume status, Discontinued with home dose of diuretics of torsemide 60 mg twice daily Type 2 diabetes poorly controlled on insulin pump Hold insulin pump during acute illness hospital admission Pharmacy consulted for glycemic management COVID-19 positive status No hypoxia or shortness of breath no fever or chills vitals stable Does not need any active treatment Continue airborne isolation precaution as per protocol Monitor History of A. fib: On metoprolol-dose was adjusted recently by cardiology Continue on Coumadin, INR therapeutic Narcotic pain medication abuse/misuse Complains of severe left foot pain requesting for IV Dilaudid periodically Patient is counseled to limit narcotic pain medication(during last admission 2 weeks back patient was found oversedated after receiving narcotic pain medications, required Narcan /BiPAP support) Patient had same foot wound at least for last several days before seen at wound care clinic yesterday pt also had clinic visit with nephrology and Coumadin clinic yesterday ( 07/12/20) -all the providers updated regarding patient's COVID-19 positive status -Had no complaint of pain or discomfort at that time, Was seen in the ER and also after arrival to the floor-comfortable sitting up on the chair,, was not aware how bad his foot wound was Prevention was done and nothing can worsening lower foot foot pain No evidence of infection, normal white count no fever or chills Patient is significantly neuropathic on lower extremity, has minimum pain sensation. His home p.o. medications continued on admission: Tramadol 50 mg p.o. every 6 hours Patient was upset last night, expressing frustration that nobody has paid attention to his foot pain-was started on low-dose IV Dilaudid by on-call hospitalist. I explained to patient categorically, narcotic pain medication dose will not be escalated until there is a definite indication-post procedure/for worsening of infection Patient is morbidly obese, significant obstructive sleep apnea , noncompliant with CPAP Excessive sedation from narcotic pain medication can put in severe respiratory failure with CO2 retention. Patient remains upset, continues to complain,-that nothing has been done for him He has doing everything right, does not understand why he is with wound got worse. CODE STATUS: Full code Admission and Anticipated Discharge Date Admission Date: July 12, 2020 Subjective Follow-up visit for nonhealing diabetic foot ulcer on left, morbid obesity, COVID-19 positive: Patient does not have any shortness of breath no cough no fever chills no hypoxia remains in room air Review of Systems Review of Systems: All systems reviewed & are unremarkable except as noted in Subjective Physical Exam 2 Constitutional: WD/WN, vitals as above + obese Eyes: PERRL, conjunctivae normal, anicteric sclerae Respiratory: Auscultation: + diminished lung sounds and + rales Cardiovascular: Rate/Rhythm: regular rate and regular rhythm Extremities: + edema Gastrointestinal (Abdomen): Inspection/Auscultation: + abdomen distended Percussion/Palpation: abdomen soft; abdomen nontender Musculoskeletal: Extremities: + foot abnormality (open wound on left foot with serosanguinous drainage) Skin: left lateral foot wound,-Wound base is erythematous Moderate amount of serosanguineous drainage Neurologic: PERRL, EOMI, accommodation nl, no face palsy, no dysarthria Psychiatric: A+Ox3, euthymic affect Results & Data Results & Data ([facility]) Vital Signs (Past 12 Hours) Vital Signs Temp Pulse Pulse Resp BP Pulse Ox 07/13/20 18:22 87 110/60 07/13/20 15:30 94 H 07/13/20 09:00 93 H 07/13/20 08:20 37.1 C 95 H 19 116/54 L 95
--- NOTE | 2020-07-13 19:10 | Consultation Report ---
DATE OF CONSULTATION: 07/13/2020 HISTORY OF PRESENT ILLNESS: This is a 54-year-old gentleman well known to the orthopedic service, seen at the request of the medical service. The patient was admitted due to worsening condition of his left foot and heel. The patient had previously been seen in the hospital and had irrigation and debridement and implantation of antibiotic beads due to abscess, deep infection in the left foot with osteomyelitis. The patient had improved. He was on IV antibiotics and discharged, and he was seen at the wound care clinic. He was seen by Dr. Santos. For several visits, he showed worsening in his condition due to patient noncompliance and weightbearing on the limb despite admonition to maintain nonweightbearing at all times. The patient was admitted to the hospitalist service with orthopedics consult. PHYSICAL EXAMINATION: The patient is noted to have multiple sutures intact. He has partial dehiscence and opening of his lateral wound at the base of fifth metatarsal approximately 3 cm x 3 cm per the image as noted with the wound care service. Also has an area of pressure ulceration over the posterolateral aspect of the calcaneal tuberosity with excoriation. There is no full thickness skin loss; however, there is a partial thickness slough. No abscess is noted at this time over the lateral calcaneus. Neurosensory examination is unchanged compared to prior exam. Serosanguineous discharge is noted. Significant edema in bilateral lower extremities with chronic venous stasis changes, worse on the left than the right. Pulses are difficult to palpate due to the local edema. 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 Elevated lactic acid, C-reactive protein and sed rate noted consistent with infection. IMPRESSION: Osteomyelitis, status post irrigation and debridement with implantation of beads. Patient noncompliance, diabetes mellitus, chronic neuropathy with vascular disease. RECOMMENDATION: Continue IV antibiotics, dressing changes. Continue with nonweightbearing and we will reassess. Thank you for the opportunity to consult in the care of this patient.
[2020-07-13] MEDS ORDERED: INSULIN GLARGINE SOLOSTAR 100 UNITS/ML 3 ML PEN SC SCH (21:00)
[2020-07-13] MEDS: METOPROLOL SUCC 50MG EXT REL TAB PO SCH (21:25)
--- NOTE | 2020-07-13 23:56 | Electrocardiogram Report ---
Test Reason : Blood Pressure : / mmHG Vent. Rate : 096 BPM Atrial Rate : 108 BPM P-R Int : 000 ms QRS Dur : 116 ms QT Int : 374 ms P-R-T Axes : 000 -08 118 degrees QTc Int : 472 ms Atrial fibrillation Possible Anterior infarct (cited on or before 13-JUN-2020) T wave abnormality, consider lateral ischemia Abnormal ECG When compared with ECG of 13-JUN-2020 00:48, Atrial fibrillation has replaced Sinus rhythm Left anterior fascicular block is no longer Present Questionable change in initial forces of Anteroseptal leads Confirmed by Gee Robison ([id number]) on 07/13/2020 11:56:44 PM Referred By: REFERRED SELF Confirmed By:Gee Robison
[2020-07-14] MEDS ORDERED: HYDROCORTISONE ACETATE 25 MG SUPP PR PRN (02:08)
[2020-07-14] MEDS: PIPERACILLIN/TAZOBACTAM 4.5 GM in DEXTROSE 5% 100 ML IV SCH ×3 (02:59→17:17)
[2020-07-14] MEDS: INSULIN ASPART 100 UNITS/ML 3 ML PEN SC SCH ×5 (03:12→23:15)
[2020-07-14] MEDS: HYDROmorphone INJ 1 MG/ML SYRINGE IV PRN ×4 (05:51→17:28)
[2020-07-14 06:39] LABS: Hematocrit (blood only) 30.9 % (42-52); Hemoglobin 9.9 g/dL (14.0-18.0); Mean Corpuscular Hemoglobin 27.9 pg (25-34); Mean Platelet Volume 8.4 fL (7.4-10.4); Platelet Count 295 K/uL (130-400); RDW Coefficient of Variation 17.9 % (11.5-14.5); Red Blood Count 3.55 M/uL (4.7-6.1); White Blood Count 5.68 K/uL (4.8-10.8)
[2020-07-14] MEDS: LEVOTHYROXINE SODIUM 100 MCG TABLET PO SCH (06:45)
[2020-07-14 07:06] LABS: BUN Creatinine Ratio 21.2 (10-20); Calcium 8.8 mg/dl (8.5-10.1); Creatinine Clr Calc Pharmacy 81.8 ml/min; Est GFR (African American) 54.2; Est GFR (Non-African American) 46.7; Potassium 3.1 mmol/L (3.5-5.1)
[2020-07-14] MEDS: HYOSCYAMINE SULFATE 0.125 MG TAB PO SCH ×3 (08:03→20:55)
[2020-07-14] MEDS: GABAPENTIN 300 MG CAP PO SCH ×3 (08:03→20:55)
[2020-07-14] MEDS: TORSEMIDE 20 MG TAB PO SCH ×2 (08:03→20:54)
[2020-07-14] MEDS: FLUTICASONE/VILANTEROL 200/25MCG 14 PUFFS/INHALER INH SCH (08:04)
[2020-07-14] MEDS: FLUTICASONE PROPIONATE NA SPR 16 GM BTL NAE SCH ×2 (08:04→20:54)
[2020-07-14] MEDS: MAGNESIUM OXIDE 400 MG TAB PO SCH (09:04)
[2020-07-14] MEDS: METOPROLOL SUCC 25MG EXT REL TAB PO SCH (09:04)
[2020-07-14] MEDS: ASPIRIN 81 MG ECTAB PO SCH (09:05)
[2020-07-14] MEDS: PANTOprazole 40 MG TAB PO SCH (09:05)
[2020-07-14] MEDS: INSULIN GLARGINE SOLOSTAR 100 UNITS/ML 3 ML PEN SQ SCH (09:24)
[2020-07-14] MEDS: COLLAGENASE OINT 30 GM TUBE TOP SCH (10:42)
[2020-07-14] MEDS: CLOBETASOL PROPIONATE 0.05% OINT 15 GM TUBE EXT SCH ×2 (10:42→20:53)
--- NOTE | 2020-07-14 11:01 | Orthopedic Progress Note ---
Date of Service July 14, 2020 Assessment & Plan (1) Cellulitis of left lower leg: He has rather severe cellulitis of his left leg with significant erythema and swelling and many large open weeping wounds along the posterior and medial aspects of the left upper and lower leg. He also has rather large open wounds on his left foot. Per Dr. Bates, these are going to be managed with wound care for now. Hopefully this rather severe infection can be improved with IV antibiotics and wound care, or he may end up with a fairly high amputation level on that left leg. Currently on IV Zosyn. Recommend tight glucose control. Admission and Anticipated Discharge Date Admission Date: July 12, 2020 Subjective Patient resting comfortably. He denies any pain in his left foot, but has a lot of pain with the ulcerations along the posterior aspect of the upper and lower left leg. Physical Exam Physical Exam: Left foot dressings clean, dry, and intact. These were just changed by nursing, who reports that they were quite saturated. He is morbidly obese, but also with fairly severe swelling and erythema tracking up the entire left lower leg and into the left upper leg into the posterior and medial thigh. There are several large areas of blistering and open weeping wounds along the leg. Previous wound care image of the left foot showing a large heel ulcer and a separate large lateral foot ulcer were noted. Results & Data ([facility]) Vital Signs (Past 12 Hours) Vital Signs Temp Pulse Pulse Pulse Resp BP Pulse Ox 07/14/20 07:51 37.7 C H 107 H 20 113/71 96 07/14/20 07:16 102 H 07/14/20 04:38 114 H 07/14/20 02:53 37.3 C 107 H 16 106/65 96 07/13/20 23:17 37.1 C 94 H 16 104/68 97
--- NOTE | 2020-07-14 11:52 | Pharmacy Report ---
Pharmacy Glycemic Short Note 2 - Date of Service July 14, 2020 - Glycemic Short BSG Results (Last 24 hours): 07/13/20 07/13/20 07/13/20 11:52 11:53 16:47 Glucose POC Glucose 322 H* 362 H* 67 L* 07/13/20 07/13/20 07/13/20 16:49 17:22 19:26 Glucose POC Glucose 58 L* 71 88 07/13/20 07/13/20 07/14/20 21:22 23:23 02:59 Glucose POC Glucose 122 H 94 94 07/14/20 07/14/20 07/14/20 05:57 07:43 11:18 Glucose 82 POC Glucose 99 180 H OUTPATIENT ANTIDIABETIC REGIMEN: * Toujeo/Humalog listed along with Novolog pump - clarified with patient. He is only on pump as follows: * 9.4 units/hr basal * CHO coverage at 1 unit for every ~1-3 g CHO consumed * Additional correction based on "trends" - patient tired on interview and not willing/able to discuss further * Jardiance * Trulicity * HbA1c 8.1% on 06/13/20 ASSESSMENT: 07/14/20 * Pt has received 153 units of insulin over the past 24hrs * 80 units of basal with Lantus * 73 units of bolus with NovoLog * BSGs 58-322 mg/dl * Loosened CR after low of 58mg/dl last evening, much better control * Change Lantus to give all in AM, additional dose at HS for hyperglycemia 07/13/20 * 54 yo M with T2DM known to our glycemic service from recent lengthy admission 06/13-06/29. Will base current regimen on trend in BSG's from this admission * Patient required basal insulin split evenly BID previously , however patient reports pump was turned off last night, but no Lantus was given (due to RN concern last night per AM pass-on). BSG's have now rebounded from hypoglycemia yesterday to >300 mg/dL, likely due to basal insufficiency. Gave cautious dose this AM due to recent hypoglycemia, but now that patient reported pump has been off, will give supplmental Lantus to more aggressive full daily dose required previous admission * IVP x1 as BSG's likely to remain elevated until basal insulin can be on-board * Will resume Novolog parameters similar to previous admission, on the tighter side as patient likely requires more insulin at this time PLAN FOR INPATIENT GLYCEMIC CONTROL: * Hold all outpatient diabetes medications * Basal insulin * Lantus 70 units SQ AM * 10 units HS for BSG 140-180mg/dl, 20 units for BSG > 180mg/dl * Bolus insulin * NovoLog per scale ACHS or Q6hrs while NPO * Goal Range: Low 110 mg/dL - High 140 mg/dL * Correction Factor: 15 mg/dL/unit * Nutritional / Prandial insulin per carb ratio of 1 unit per 2.5 grams CHO consumed PLAN FOR DISCHARGE: * tbd
[2020-07-14] MEDS ORDERED: POTASSIUM CHLORIDE CRTAB 20 MEQ TABCR PO STA (14:17)
--- NOTE | 2020-07-14 14:21 | Communication Note ---
Date of Service: July 14, 2020 pts wound culture gram negative bacilli : daptomycin D/jose continue on Zosyn pt has multiple open wounds on velazquez of his left leg , worsened due to severe lower extremity edema , lymphadenopathy asked pt to keep feet on stool when sitting ( pt requests for cushioned stool - uses a particular type of donut foam at at home -will ask pt's to bring it over ) ordered for waffle boots to offloading heels , already noted to have pressure ulcers on left heel pt reports left leg pain is severe , but ok with current regimen of tramadol and intermittent IV Dilaudid for breakthrough pain . Regarding positive COVID-19 status, And is skeptical about the positive test, thinks it could be a false positive- has been following a strict quarantine guidelines, has not been out of house except for going to doctor's visit. Does not have any symptoms of cough no shortness of breath no fever no other GI symptoms, Requested to have a repeat COVID-19 test to be done Repeat COVID-19 test ordered for a.m. Plan of care discussed with patient, in agreeable Answered all questions updated over phone Arcelia Forrester MD
[2020-07-14] MEDS ORDERED: FUROSEMIDE 40 MG in SYRINGE 0 ML IV ONE (14:45)
[2020-07-14] MEDS: WARFARIN SOD 2 MG TAB PO SCH (17:17)
[2020-07-14] MEDS ORDERED: POTASSIUM CHLORIDE CRTAB 20 MEQ TABCR PO ONE (20:00)
[2020-07-14] MEDS: ACETAMINOPHEN 325 MG TAB PO PRN (20:55)
[2020-07-14] MEDS: METOPROLOL SUCC 50MG EXT REL TAB PO SCH (20:56)
[2020-07-14] MEDS: INSULIN GLARGINE SOLOSTAR 100 UNITS/ML 3 ML PEN SC SCH (23:14)
[2020-07-15] MEDS: HYDROmorphone INJ 1 MG/ML SYRINGE IV PRN ×4 (01:00→12:29)
[2020-07-15] MEDS: PIPERACILLIN/TAZOBACTAM 4.5 GM in DEXTROSE 5% 100 ML IV SCH ×4 (01:18→23:12)
[2020-07-15] MEDS: LEVOTHYROXINE SODIUM 100 MCG TABLET PO SCH (05:35)
[2020-07-15] MEDS: ASPIRIN 81 MG ECTAB PO SCH (07:56)
[2020-07-15] MEDS: TORSEMIDE 20 MG TAB PO SCH ×2 (07:56→19:22)
[2020-07-15] MEDS: GABAPENTIN 300 MG CAP PO SCH ×3 (07:57→19:23)
[2020-07-15] MEDS: HYOSCYAMINE SULFATE 0.125 MG TAB PO SCH ×3 (07:57→19:24)
[2020-07-15] MEDS: MAGNESIUM OXIDE 400 MG TAB PO SCH (07:57)
[2020-07-15] MEDS: METOPROLOL SUCC 25MG EXT REL TAB PO SCH (07:57)
[2020-07-15] MEDS: PANTOprazole 40 MG TAB PO SCH (07:57)
[2020-07-15] MEDS: FLUTICASONE/VILANTEROL 200/25MCG 14 PUFFS/INHALER INH SCH (07:58)
[2020-07-15] MEDS: FLUTICASONE PROPIONATE NA SPR 16 GM BTL NAE SCH ×2 (07:58→19:24)
[2020-07-15] MEDS: INSULIN ASPART 100 UNITS/ML 3 ML PEN SC SCH ×4 (08:06→21:36)
[2020-07-15 08:56] LABS: BUN Creatinine Ratio 17.7 (10-20); Calcium 8.5 mg/dl (8.5-10.1); Creatinine Clr Calc Pharmacy 80.8 ml/min; Est GFR (African American) 53.4; Est GFR (Non-African American) 46.1; Potassium 3.1 mmol/L (3.5-5.1)
[2020-07-15] MEDS ORDERED: POTASSIUM CHLORIDE CRTAB 20 MEQ TABCR PO STA (08:58)
[2020-07-15] MEDS: INSULIN GLARGINE SOLOSTAR 100 UNITS/ML 3 ML PEN SQ SCH (08:59)
--- NOTE | 2020-07-15 09:24 | Pharmacy Report ---
Pharmacy Glycemic Short Note 2 - Date of Service July 15, 2020 - Glycemic Short BSG Results (Last 24 hours): 07/14/20 07/14/20 07/14/20 11:18 16:24 20:48 Glucose POC Glucose 180 H 134 H 74 07/14/20 07/15/20 07/15/20 21:24 01:01 01:02 Glucose POC Glucose 95 69 L* 77 07/15/20 07/15/20 07/15/20 04:24 07:36 08:15 Glucose 114 H POC Glucose 141 H 137 H OUTPATIENT ANTIDIABETIC REGIMEN: * Toujeo/Humalog listed along with Novolog pump - clarified with patient. He is only on pump as follows: * 9.4 units/hr basal * CHO coverage at 1 unit for every ~1-3 g CHO consumed * Additional correction based on "trends" - patient tired on interview and not willing/able to discuss further * Jardiance * Trulicity * HbA1c 8.1% on 06/13/20 ASSESSMENT: 07/15/20 * Pt has received 157 units of insulin over the past 24hrs * 70 units of basal with Lantus * 87 units of bolus with NovoLog * BSGs 69-180 mg/dl * Loosened CR further, as patient did still have a low BSG yesterday even after loosening * Continue Lantus at this time, consider reduction if further hypoglycemia occurs 07/14/20 * Pt has received 153 units of insulin over the past 24hrs * 80 units of basal with Lantus * 73 units of bolus with NovoLog * BSGs 58-322 mg/dl * Loosened CR after low of 58mg/dl last evening, much better control * Change Lantus to give all in AM, additional dose at HS for hyperglycemia 07/13/20 * 54 yo M with T2DM known to our glycemic service from recent lengthy admission 06/13-06/29. Will base current regimen on trend in BSG's from this admission * Patient required basal insulin split evenly BID previously , however patient reports pump was turned off last night, but no Lantus was given (due to RN concern last night per AM pass-on). BSG's have now rebounded from hypoglycemia yesterday to >300 mg/dL, likely due to basal insufficiency. Gave cautious dose this AM due to recent hypoglycemia, but now that patient reported pump has been off, will give supplmental Lantus to more aggressive full daily dose required previous admission * IVP x1 as BSG's likely to remain elevated until basal insulin can be on-board * Will resume Novolog parameters similar to previous admission, on the tighter side as patient likely requires more insulin at this time PLAN FOR INPATIENT GLYCEMIC CONTROL: * Hold all outpatient diabetes medications * Basal insulin * Lantus 70 units SQ AM * 10 units HS for BSG 140-180mg/dl, 20 units for BSG > 180mg/dl * Bolus insulin * NovoLog per scale ACHS or Q6hrs while NPO * Goal Range: Low 110 mg/dL - High 140 mg/dL * Correction Factor: 15 mg/dL/unit * LOOSEN Nutritional / Prandial insulin per carb ratio of 1 unit per 3 grams CHO consumed PLAN FOR DISCHARGE: * tbd
[2020-07-15] MEDS: oxyCODONE HCL IR 5 MG TAB (IMMEDIATE RELEASE) PO PRN ×3 (09:45→23:13)
[2020-07-15 09:51] LABS: INR 2.2 (0.9-1.1); Prothrombin Time 21.3 Seconds (9.0-12.0)
[2020-07-15] MEDS: COLLAGENASE OINT 30 GM TUBE TOP SCH (11:38)
[2020-07-15] MEDS: CLOBETASOL PROPIONATE 0.05% OINT 15 GM TUBE EXT SCH ×2 (11:38→19:28)
--- NOTE | 2020-07-15 15:38 | Hospitalist Progress Note ---
Date of Service July 15, 2020 Assessment & Plan (1) Diabetic ulcer of left foot associated with type 2 diabetes mellitus, with fat layer exposed: History of poor compliance with medication and wound care, He was recently admitted with prolonged hospital stay secondary to diabetic left foot ulcer, underwent I&D , and antibiotic beads placement. 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 Difficult to assess volume status secondary to morbid obesity Lactic acid level normalized, Continue to monitor volume status, on Torsemide 60 mg Twice daily added intermittent dose of IV Lasix for persistent /worsening of left lower ext edema Type 2 diabetes poorly controlled on insulin pump Hold insulin pump during acute illness hospital admission Pharmacy consulted for glycemic management -appreciate inp ut on insulin SSI and Lantus basal bolus COVID-19 positive status asymptomatic no resp or GI symptoms No hypoxia or shortness of breath no fever or chills no GI complain of diarrhea , abdominal pain ,no nausea , vomiting vitals stable Does not need any active treatment Continue airborne isolation precaution as per protocol repeat COVID 19 test today 07/15 + ve result updated to pt History of A. fib: On metoprolol-dose was adjusted recently by cardiology remains in Afib with variable rate of 120-100 cont tele monitoring Continue on Coumadin, INR therapeutic Narcotic pain medication abuse/misuse Complains of severe left foot pain requesting for IV Dilaudid periodically Patient is counseled to limit narcotic pain medication(during last admission 2 weeks back patient was found oversedated after receiving narcotic pain medications, required Narcan /BiPAP support) Patient is morbidly obese, significant obstructive sleep apnea , noncompliant with CPAP Excessive sedation from narcotic pain medication can put in severe respiratory failure with CO2 retention. on IV dialudid /and PRN Oxycodone , pain medications needs to be on hold on any symptoms of excessive sedation of hypoxia CODE STATUS: Full code DVT prophylaxes : on Coumadin Disposition : will need rehab after discharge for continued wound care pt is agreeable Admission and Anticipated Discharge Date Admission Date: July 12, 2020 Subjective Follow up visit for non healing left foot diabetic wound, multiple open wounds on left foot , Positive COVID 19 status ( asymptomatic ) offers no new complain asked to have a different bed as he can not move in the standard bed , remains very uncomfortable leg pain is the same , but ok with current regimen of pain meds d no fever or chills no complain of orthopnea , no chest pain or SOB , no hypoxia ( remains in room air ) Review of Systems Review of Systems: All systems reviewed & are unremarkable except as noted in Subjective Physical Exam Constitutional: WD/WN, vitals as above + obese Eyes: PERRL, conjunctivae normal, anicteric sclerae Respiratory: Auscultation: + diminished lung sounds and + rales Cardiovascular: Rate/Rhythm: regular rate and regular rhythm Extremities: + edema Gastrointestinal (Abdomen): Inspection/Auscultation: + abdomen distended Percussion/Palpation: abdomen soft; abdomen nontender Musculoskeletal: Extremities: + foot abnormality (open wound on left foot with serosanguinous drainage) multiple open wounds on back of left leg , severe edema of left lower ext with chronic skin changes Neurologic: PERRL, EOMI, accommodation nl, no face palsy, no dysarthria Psychiatric: A+Ox3, euthymic affect Results & Data Results & Data ([facility]) Vital Signs (Past 12 Hours) Vital Signs Temp Pulse Pulse Pulse Resp BP BP 07/15/20 07:45 37.2 C 94 H 19 109/72 07/15/20 07:17 95 H 07/15/20 04:20 37.1 C 103 H 15 108/73 Pulse Ox 07/15/20 07:45 96 07/15/20 07:17 07/15/20 04:20 97
[2020-07-15] MEDS: WARFARIN SOD 2 MG TAB PO SCH (17:06)
[2020-07-15] MEDS ORDERED: XOPENEX/ATROVENT 1.25mg/0.5MG NEB COMBO NEB PRN (19:30)
[2020-07-15] MEDS ORDERED: LEVALBUTEROL 1.25MG/0.5ML NEB INH PRN (19:30)
[2020-07-15] MEDS ORDERED: XOPENEX/ATROVENT 1.25mg/0.5MG NEB COMBO NEB STA (19:30)
[2020-07-15] MEDS ORDERED: IPRATROPIUM BROMIDE NEB SOLN 0.02% 2.5 ML VIAL INH PRN (19:30)
[2020-07-15] MEDS ORDERED: IPRATROPIUM BROMIDE NEB SOLN 0.02% 2.5 ML VIAL INH STA (19:36)
[2020-07-15] MEDS ORDERED: LEVALBUTEROL 1.25MG/0.5ML NEB INH STA (19:36)
[2020-07-15] MEDS: guaiFENesin 600 MG TABCR PO SCH (21:36)
[2020-07-15] MEDS: METOPROLOL SUCC 50MG EXT REL TAB PO SCH (21:38)
[2020-07-15] MEDS: INSULIN GLARGINE SOLOSTAR 100 UNITS/ML 3 ML PEN SC SCH (21:38)
[2020-07-15] MEDS: ZOLPIDEM TARTRATE 5 MG TAB PO PRN (21:46)
[2020-07-15] MEDS: ACETAMINOPHEN 325 MG TAB PO PRN (21:46)
[2020-07-16] MEDS: LEVOTHYROXINE SODIUM 100 MCG TABLET PO SCH (06:07)
[2020-07-16] MEDS: oxyCODONE HCL IR 5 MG TAB (IMMEDIATE RELEASE) PO PRN ×2 (06:08→18:25)
[2020-07-16 08:17] LABS: BUN Creatinine Ratio 17.7 (10-20); Calcium 8.4 mg/dl (8.5-10.1); Creatinine Clr Calc Pharmacy 87.2 ml/min; Est GFR (African American) 58.5; Est GFR (Non-African American) 50.5; Magnesium 1.9 mg/dl (1.8-2.4); Potassium 2.9 mmol/L (3.5-5.1)
[2020-07-16] MEDS: FLUTICASONE PROPIONATE NA SPR 16 GM BTL NAE SCH ×2 (08:22→20:49)
[2020-07-16] MEDS: guaiFENesin 600 MG TABCR PO SCH ×3 (08:22→20:49)
[2020-07-16] MEDS: ASPIRIN 81 MG ECTAB PO SCH (08:23)
[2020-07-16] MEDS: PANTOprazole 40 MG TAB PO SCH (08:23)
[2020-07-16] MEDS: MAGNESIUM OXIDE 400 MG TAB PO SCH (08:23)
[2020-07-16] MEDS: GABAPENTIN 300 MG CAP PO SCH ×3 (08:23→20:49)
[2020-07-16 08:24] LABS: INR 2.3 (0.9-1.1); Prothrombin Time 21.9 Seconds (9.0-12.0)
[2020-07-16] MEDS: HYOSCYAMINE SULFATE 0.125 MG TAB PO SCH ×3 (08:27→20:48)
[2020-07-16] MEDS: CLOBETASOL PROPIONATE 0.05% OINT 15 GM TUBE EXT SCH ×2 (08:28→20:52)
[2020-07-16] MEDS: FLUTICASONE/VILANTEROL 200/25MCG 14 PUFFS/INHALER INH SCH (08:28)
[2020-07-16] MEDS: METOPROLOL SUCC 25MG EXT REL TAB PO SCH (08:30)
[2020-07-16] MEDS: INSULIN ASPART 100 UNITS/ML 3 ML PEN SC SCH ×4 (08:30→21:47)
[2020-07-16] MEDS: INSULIN GLARGINE SOLOSTAR 100 UNITS/ML 3 ML PEN SQ SCH ×2 (09:18→21:46)
--- NOTE | 2020-07-16 09:19 | Pharmacy Report ---
Pharmacy Glycemic Short Note 2 - Date of Service July 16, 2020 - Glycemic Short BSG Results (Last 24 hours): 07/15/20 07/15/20 07/15/20 11:49 16:54 20:29 Glucose POC Glucose 178 H 139 H 103 H 07/16/20 07/16/20 07/16/20 03:55 07:23 07:51 Glucose 125 H POC Glucose 127 H 136 H OUTPATIENT ANTIDIABETIC REGIMEN: * Toujeo/Humalog listed along with Novolog pump - clarified with patient. He is only on pump as follows: * 9.4 units/hr basal * CHO coverage at 1 unit for every ~1-3 g CHO consumed * Additional correction based on "trends" - patient tired on interview and not willing/able to discuss further * Jardiance * Trulicity * HbA1c 8.1% on 06/13/20 ASSESSMENT: 07/16: * BSGs yesterday were [phone] mg/dL, well controlled * Received a total of 159 units of insulin yesterday * 70 units basal + 89 units bolus * Fasting BSG this AM was 136 mg/dL, controlled * Will continue with total daily dose of 70 units but split Lantus to 35 units SC BID as patient was previously well controlled on BID Lantus dosing * BSGs have been trending down throughout the day * Could be secondary to large Lantus dose in AM * Could be secondary to tight carb ratio. Patient typically has postprandial hyperglycemia at lunchtime so will not adjust CR for now. May need to loosen CR with lunch. 07/15: * Pt has received 157 units of insulin over the past 24hrs * 70 units of basal with Lantus * 87 units of bolus with NovoLog * BSGs 69-180 mg/dl * Loosened CR further, as patient did still have a low BSG yesterday even after loosening * Continue Lantus at this time, consider reduction if further hypoglycemia occurs 07/14: * Pt has received 153 units of insulin over the past 24hrs * 80 units of basal with Lantus * 73 units of bolus with NovoLog * BSGs 58-322 mg/dl * Loosened CR after low of 58mg/dl last evening, much better control * Change Lantus to give all in AM, additional dose at HS for hyperglycemia PLAN FOR INPATIENT GLYCEMIC CONTROL: * Hold all outpatient diabetes medications * Basal insulin - split BID * Lantus 35 units SQ BID * Bolus insulin - no change * NovoLog per scale ACHS or Q6hrs while NPO * Goal Range: Low 110 mg/dL - High 140 mg/dL * Correction Factor: 15 mg/dL/unit * LOOSEN Nutritional / Prandial insulin per carb ratio of 1 unit per 3 grams CHO consumed PLAN FOR DISCHARGE: * To be determined
[2020-07-16] MEDS ORDERED: POTASSIUM CHLORIDE CRTAB 20 MEQ TABCR PO STA (09:51)
[2020-07-16] MEDS: PIPERACILLIN/TAZOBACTAM 4.5 GM in DEXTROSE 5% 100 ML IV SCH ×2 (10:03→17:13)
[2020-07-16] MEDS: TORSEMIDE 20 MG TAB PO SCH ×2 (10:38→20:48)
[2020-07-16] MEDS: COLLAGENASE OINT 30 GM TUBE TOP SCH (12:26)
[2020-07-16] MEDS: POLYETHYLENE (MIRALAX) 17 GM PACK PO PRN (14:23)
[2020-07-16] MEDS: WARFARIN SOD 2 MG TAB PO SCH (15:33)
--- NOTE | 2020-07-16 19:14 | Hospitalist Progress Note ---
Date of Service July 16, 2020 Assessment & Plan (1) Diabetic ulcer of left foot associated with type 2 diabetes mellitus, with fat layer exposed: History of poor compliance with medication and wound care, He was recently admitted with prolonged hospital stay secondary to diabetic left foot ulcer, underwent I&D , and antibiotic beads placement. Sent from wound clinic as worsening wound with wound dehiscence wound culture : gram negative bacilli , cont on Zosyn will consult ID Orthopedics consulted appreciate input, Bedside wound dressing done, patient will be on waffle boots, keep foot elevated on foot rest to prevent/limit lower extremity edema Patient may need repeat I&D cont encourage pt to keep feet elevated while sitting local wound care Chronic combined systolic and diastolic CHF Difficult to assess volume status secondary to morbid obesity Lactic acid level normalized, Continue to monitor volume status, on Torsemide 60 mg Twice daily Type 2 diabetes poorly controlled on insulin pump Hold insulin pump during acute illness hospital admission Pharmacy consulted for glycemic management -appreciate inp ut on insulin SSI and Lantus basal bolus COVID-19 positive status asymptomatic no resp or GI symptoms No hypoxia or shortness of breath no fever or chills no GI complain of diarrhea , abdominal pain ,no nausea , vomiting vitals stable Does not need any active treatment Continue airborne isolation precaution as per protocol repeat COVID 19 test today 07/15 + ve result updated to pt History of A. fib: On metoprolol-dose was adjusted recently by cardiology remains in Afib with variable rate of 120-100 cont tele monitoring Continue on Coumadin, INR therapeutic Narcotic pain medication abuse/misuse Complains of severe left foot pain requesting for IV Dilaudid periodically Patient is counseled to limit narcotic pain medication(during last admission 2 weeks back patient was found oversedated after receiving narcotic pain medications, required Narcan /BiPAP support) Patient is morbidly obese, significant obstructive sleep apnea , noncompliant with CPAP Excessive sedation from narcotic pain medication can put in severe respiratory failure with CO2 retention. on IV dialudid /and PRN Oxycodone , pain medications needs to be on hold on any symptoms of excessive sedation of hypoxia CODE STATUS: Full code DVT prophylaxes : on Coumadin Disposition : will need rehab after discharge for continued wound care pt is agreeable Admission and Anticipated Discharge Date Admission Date: July 12, 2020 Subjective Follow up visit for non healing left foot diabetic wound, multiple open wounds on left foot , Positive COVID 19 status ( asymptomatic ) offers no new complain said he lost his balance ( while trying to move from Chair to bed by himself ) and fell earlier , entangled in the iv line managed to get back in bed complains knee pain on left , ok with current pain meds regimen Nursing did a detail vitals and extremity check no new wound , or bruise noted vitals stable Review of Systems Review of Systems: All systems reviewed & are unremarkable except as noted in Subjective Physical Exam Constitutional: WD/WN, vitals as above + obese Eyes: PERRL, conjunctivae normal, anicteric sclerae Respiratory: Auscultation: + diminished lung sounds and + rales Cardiovascular: Rate/Rhythm: regular rate and regular rhythm Extremities: + edema Gastrointestinal (Abdomen): Inspection/Auscultation: + abdomen distended Percussion/Palpation: abdomen soft; abdomen nontender Musculoskeletal: Extremities: extremities normal to inspection (left leg - multiple open wound with drainage ) and + foot abnormality (open wound on left foot with serosanguinous drainage) Neurologic: PERRL, EOMI, accommodation nl, no face palsy, no dysarthria Psychiatric: A+Ox3, euthymic affect Results & Data Results & Data ([facility]) Vital Signs (Past 12 Hours) Vital Signs Temp Pulse Resp BP BP Pulse Ox 07/16/20 18:08 36.6 C 100 H 22 134/81 97 07/16/20 14:28 37.6 C H 97 H 18 101/66 94 07/16/20 12:02 37.5 C 97 H 18 93/58 L 97 07/16/20 08:00 37.1 C 87 22 136/70 97
[2020-07-16] MEDS: METOPROLOL SUCC 50MG EXT REL TAB PO SCH (20:48)
[2020-07-17] MEDS: PIPERACILLIN/TAZOBACTAM 4.5 GM in DEXTROSE 5% 100 ML IV SCH ×3 (00:14→18:03)
[2020-07-17] MEDS: POLYETHYLENE (MIRALAX) 17 GM PACK PO PRN (01:06)
[2020-07-17] MEDS: LEVOTHYROXINE SODIUM 100 MCG TABLET PO SCH (05:41)
[2020-07-17 06:20] LABS: INR 2.5 (0.9-1.1); Prothrombin Time 23.5 Seconds (9.0-12.0)
[2020-07-17] MEDS: guaiFENesin 600 MG TABCR PO SCH ×2 (08:20→21:47)
[2020-07-17] MEDS: HYOSCYAMINE SULFATE 0.125 MG TAB PO SCH ×3 (08:20→21:50)
[2020-07-17] MEDS: ASPIRIN 81 MG ECTAB PO SCH (08:20)
[2020-07-17] MEDS: METOPROLOL SUCC 25MG EXT REL TAB PO SCH (08:20)
[2020-07-17] MEDS: TORSEMIDE 20 MG TAB PO SCH ×2 (08:21→21:47)
[2020-07-17] MEDS: MAGNESIUM OXIDE 400 MG TAB PO SCH (08:21)
[2020-07-17] MEDS: PANTOprazole 40 MG TAB PO SCH (08:21)
[2020-07-17] MEDS: GABAPENTIN 300 MG CAP PO SCH ×3 (08:21→21:52)
[2020-07-17] MEDS: FLUTICASONE PROPIONATE NA SPR 16 GM BTL NAE SCH ×2 (08:22→23:53)
[2020-07-17] MEDS: FLUTICASONE/VILANTEROL 200/25MCG 14 PUFFS/INHALER INH SCH (08:22)
[2020-07-17] MEDS: COLLAGENASE OINT 30 GM TUBE TOP SCH ×2 (08:22→14:44)
[2020-07-17] MEDS: CLOBETASOL PROPIONATE 0.05% OINT 15 GM TUBE EXT SCH ×2 (08:27→23:55)
[2020-07-17] MEDS: INSULIN ASPART 100 UNITS/ML 3 ML PEN SC SCH ×4 (08:38→23:54)
[2020-07-17] MEDS: INSULIN GLARGINE SOLOSTAR 100 UNITS/ML 3 ML PEN SQ SCH ×2 (08:39→23:53)
[2020-07-17] MEDS: oxyCODONE HCL IR 5 MG TAB (IMMEDIATE RELEASE) PO PRN (14:43)
--- NOTE | 2020-07-17 16:06 | Communication Note ---
Date of Service: July 17, 2020 I saw the patient today with the wound care team during the routine dressing changes. Overall the patient looks better than when I last saw him from a pre vious admission. He is in pretty good spirits today. Dressing was removed from the left foot. Sutures are still intact from his previous washout and the ulcer area that was initially draining and looked fairly purulent was cleaned up by Dr. Bates late last week at the bedside. Today there is not much in the way of erythema around the wound. I can press on the tissues around the ulcer itself and the patient does not experience pain. He states that he can feel my fingers touching his foot. I could not express any drainage from this area. When I did push on one of the lower edges of the ulcer, a small amount of fibrinous tissue was peaking out from the wound edge. There is no foul odor. His left heel is not looking great and the skin is somewhat demarcating at this time. Wound care is treating it with Betadine soaks. I will discussed with Dr. Bates about the possibility of further need for washout of that left foot ulcer. Plan to continue dressing changes daily with Aquacel Ag on the ulcer. We can reassess the ulcer and if need be plan for irrigation debridement on Thursday. Overall his leg looks better with less swelling and less erythema over the foot however he continues with the erythema and induration above the ankle going up the leg but he has noticeable decrease in his edema. We discussed that he needs to continue to be diligent about the swelling in his legs. Plan for recheck of his wound later this week.
[2020-07-17] MEDS: ACETAMINOPHEN 325 MG TAB PO PRN (16:27)
[2020-07-17] MEDS: WARFARIN SOD 2 MG TAB PO SCH (16:28)
[2020-07-17 16:48] LABS: BUN Creatinine Ratio 15.6 (10-20); Creatinine Clr Calc Pharmacy 83.9 ml/min; Est GFR (African American) 55.8; Est GFR (Non-African American) 48.2; Potassium 3.1 mmol/L (3.5-5.1)
--- NOTE | 2020-07-17 17:18 | Hospitalist Progress Note ---
Date of Service July 17, 2020 Assessment & Plan (1) Diabetic ulcer of left foot associated with type 2 diabetes mellitus, with fat layer exposed: History of poor compliance with medication and wound care, He was recently admitted with prolonged hospital stay secondary to diabetic left foot ulcer, underwent I&D , and antibiotic beads placement. Sent from wound clinic as worsening wound with wound dehiscence wound culture : gram negative bacilli , cont on Zosyn ID consult requested febrile episodes noted repeat blood culture ordered added vancomycin Orthopedics consulted appreciate input, Bedside wound dressing done-appears improvement of wounds cont encourage pt to keep feet elevated while sitting local wound care Chronic combined systolic and diastolic CHF Difficult to assess volume status secondary to morbid obesity Lactic acid level normalized, Continue to monitor volume status, on Torsemide 60 mg Twice daily /left lower ext severe edema has improved given one dose of 20 mg IV lasix today Type 2 diabetes poorly controlled on insulin pump Hold insulin pump during acute illness hospital admission Pharmacy consulted for glycemic management -appreciate inp ut on insulin SSI and Lantus basal bolus COVID-19 positive status asymptomatic no resp or GI symptoms No hypoxia or shortness of breath no fever or chills no GI complain of diarrhea , abdominal pain ,no nausea , vomiting vitals stable Does not need any active treatment Continue airborne isolation precaution as per protocol repeat COVID 19 test today 07/15 + ve result updated to pt History of A. fib: On metoprolol-dose was adjusted recently by cardiology Afib rvr possible due to febrile episode tx to PCU /COvid unit PRN IV lopressor for HR> 100 Continue on Coumadin, INR therapeutic Narcotic pain medication abuse/misuse Complains of severe left foot pain requesting for IV Dilaudid ordered added stool softener for constipation Patient is counseled to limit narcotic pain medication(during last admission patient was found oversedated after receiving narcotic pain medications, required Narcan /BiPAP support) Patient is morbidly obese, significant obstructive sleep apnea , noncompliant with CPAP Excessive sedation from narcotic pain medication can put in severe respiratory failure with CO2 retention. on IV dialudid /and PRN Oxycodone , pain medications needs to be on hold on any symptoms of excessive sedation of hypoxia CODE STATUS: Full code DVT prophylaxes : on Coumadin Disposition : tx to PCU will need rehab after discharge for continued wound care pt is agreeable Admission and Anticipated Discharge Date Admission Date: July 12, 2020 Subjective Follow up visit for non healing left foot diabetic wound, multiple open wounds on left foot , Positive COVID 19 status ( asymptomatic ) left lower extremity swelling much improved , the open wounds appears to healing , with no active drainage noted fever spike note 38.6 episodes of Afib RVR pt complains of bariatric bed , wants to be back on regular bed ( was very unhappy with regular bed previously -complaining his back pain was worse ) complains of constipation , miralax not helping ordered for dulculax , asked to limit taking narcotic pain meds ( requesting Iv dilaudid every 3 hrs ) to prevent constipation Review of Systems Review of Systems: All systems reviewed & are unremarkable except as noted in Subjective Physical Exam Constitutional: WD/WN, vitals as above + obese Eyes: PERRL, conjunctivae normal, anicteric sclerae Respiratory: Auscultation: + diminished lung sounds and + rales Cardiovascular: Rate/Rhythm: regular rate and regular rhythm Extremities: + edema Gastrointestinal (Abdomen): Inspection/Auscultation: + abdomen distended Percussion/Palpation: abdomen soft; abdomen nontender Musculoskeletal: Extremities: extremities normal to inspection (left leg - multiple open wound with drainage ) and + foot abnormality (open wound on left foot with serosanguinous drainage) Neurologic: PERRL, EOMI, accommodation nl, no face palsy, no dysarthria Psychiatric: A+Ox3, euthymic affect Results & Data Results & Data ([facility]) Vital Signs (Past 12 Hours) Vital Signs Temp Pulse Pulse Resp BP BP Pulse Ox 07/17/20 15:15 38.6 C H 101 H 20 105/66 91 07/17/20 12:16 36.8 C 91 H 18 118/69 96 07/17/20 10:09 91 H 07/17/20 08:10 37.8 C H 88 20 111/64 95
[2020-07-17] MEDS ORDERED: POTASSIUM CHLORIDE CRTAB 20 MEQ TABCR PO STA (17:19)
[2020-07-17] MEDS ORDERED: FUROSEMIDE 20 MG in SYRINGE 0 ML IV ONE (17:45)
--- NOTE | 2020-07-17 18:11 | Communication Note ---
Date of Service: July 17, 2020 left foot wound culture Pseudomonas : Iv Zosyn D/jose abx changed to IV Cipro ( per sensitivity ) repeat blood culture in am IV vancomycin not added less likely gram positive organism infection in this setting if pt continues to spike temp after changing the Abx may need to consider gram positive coverage ID consulted ,will follow the recommendation in am Arcelia Forrester MD
[2020-07-17] MEDS: CIPROFLOXACIN / D5W 400 MG/200 ML BAG IV SCH (19:46)
[2020-07-17] MEDS ORDERED: bisacodyL 5 MG TABEC PO ONE (20:34)
[2020-07-17] MEDS: METOPROLOL SUCC 50MG EXT REL TAB PO SCH (21:51)
[2020-07-18] MEDS: ZOLPIDEM TARTRATE 5 MG TAB PO PRN ×2 (01:31→22:34)
[2020-07-18] MEDS: ATORVASTATIN 40 MG TAB PO SCH ×2 (01:33→20:27)
[2020-07-18] MEDS: CIPROFLOXACIN / D5W 400 MG/200 ML BAG IV SCH (05:45)
[2020-07-18] MEDS: LEVOTHYROXINE SODIUM 100 MCG TABLET PO SCH (05:47)
[2020-07-18 06:52] LABS: Hematocrit (blood only) 33.2 % (42-52); Hemoglobin 10.5 g/dL (14.0-18.0); Mean Corpuscular Hemoglobin 27.1 pg (25-34); Mean Corpuscular Hgb Conc 31.6 g/dL (32-36); Mean Corpuscular Volume 85.6 fL (80-100); Mean Platelet Volume 8.6 fL (7.4-10.4); Platelet Count 229 K/uL (130-400); RDW Coefficient of Variation 17.7 % (11.5-14.5); RDW Standard Deviation 54.8 fL (36.4-46.3); Red Blood Count 3.88 M/uL (4.7-6.1); White Blood Count 4.28 K/uL (4.8-10.8)
[2020-07-18 07:00] LABS: INR 2.1 (0.9-1.1)
[2020-07-18 07:26] LABS: BUN Creatinine Ratio 14.2 (10-20); Calcium 7.6 mg/dl (8.5-10.1); Creatinine Clr Calc Pharmacy 86.8 ml/min; Est GFR (African American) 57.2; Est GFR (Non-African American) 49.3; Potassium 2.8 mmol/L (3.5-5.1)
--- NOTE | 2020-07-18 08:40 | XRay Report ---
XR chest 1V portable CLINICAL HISTORY: COVID 19 positive, r/o Pneumonia COMPARISON STUDY: Chest CT June 18, 2020. Chest radiograph July 12, 2020. FINDINGS: A left subclavian pacer/AICD is in place. Moderate cardiomegaly is unchanged. There is no p neumothorax or pleural effusion. Pulmonary vascular congestion is noted. Mild interstitial thickening is present. There may be subtle superimposed airspace opacities, greater within the right lung. IMPRESSION: 1. Cardiomegaly with pulmonary vascular congestion. 2. Suspected superimposed mild airspace opacities, greater within the right lung. These favor an infe ctious process. ACT 112: Negative or not required by law. Electronically signed by: Devyn Flynn M.D. 07/18/2020 8:38 AM
[2020-07-18] MEDS ORDERED: POTASSIUM CHLORIDE CRTAB 20 MEQ TABCR PO SCH (09:00)
[2020-07-18] MEDS: PANTOprazole 40 MG TAB PO SCH (09:10)
[2020-07-18] MEDS: FLUTICASONE PROPIONATE NA SPR 16 GM BTL NAE SCH ×2 (09:10→20:26)
[2020-07-18] MEDS: MAGNESIUM OXIDE 400 MG TAB PO SCH (09:11)
[2020-07-18] MEDS: guaiFENesin 600 MG TABCR PO SCH ×2 (09:11→20:27)
[2020-07-18] MEDS: GABAPENTIN 300 MG CAP PO SCH ×3 (09:11→20:27)
[2020-07-18] MEDS: METOPROLOL SUCC 25MG EXT REL TAB PO SCH (09:12)
[2020-07-18] MEDS: ASPIRIN 81 MG ECTAB PO SCH (09:12)
[2020-07-18] MEDS: HYOSCYAMINE SULFATE 0.125 MG TAB PO SCH ×3 (09:15→20:28)
[2020-07-18] MEDS: TORSEMIDE 20 MG TAB PO SCH ×2 (09:15→20:28)
[2020-07-18] MEDS: FLUTICASONE/VILANTEROL 200/25MCG 14 PUFFS/INHALER INH SCH (09:16)
[2020-07-18] MEDS: INSULIN GLARGINE SOLOSTAR 100 UNITS/ML 3 ML PEN SQ SCH (09:17)
[2020-07-18] MEDS: INSULIN ASPART 100 UNITS/ML 3 ML PEN SC SCH ×3 (09:18→17:44)
[2020-07-18] MEDS: bisacodyL 5 MG TABEC PO SCH (09:37)
[2020-07-18] MEDS: ACETAMINOPHEN 325 MG TAB PO PRN (09:37)
[2020-07-18] MEDS: POTASSIUM CHLORIDE CRTAB 20 MEQ TABCR PO SCH ×2 (09:38→20:27)
[2020-07-18] MEDS: COLLAGENASE OINT 30 GM TUBE TOP SCH (12:18)
[2020-07-18] MEDS: CLOBETASOL PROPIONATE 0.05% OINT 15 GM TUBE EXT SCH ×2 (12:18→22:26)
[2020-07-18] MEDS ORDERED: PIPERACILL/TAZOBAC CONSULT ACTIVE PRN (13:54)
[2020-07-18] MEDS ORDERED: PIPERACILLIN/TAZOBACTAM 4.5 GM in DEXTROSE 5% 100 ML IV ONE (14:00)
--- NOTE | 2020-07-18 14:15 | Pharmacy Report ---
Pharmacy Glycemic Short Note 2 - Date of Service July 18, 2020 - Glycemic Short BSG Results (Last 24 hours): 07/17/20 07/17/20 07/17/20 16:14 17:06 21:43 Glucose 82 POC Glucose 95 179 H 07/18/20 07/18/20 07/18/20 06:28 08:00 12:12 Glucose 107 H POC Glucose 117 H 344 H* OUTPATIENT ANTIDIABETIC REGIMEN: * Toujeo/Humalog listed along with Novolog pump - clarified with patient. He is only on pump as follows: * 9.4 units/hr basal * CHO coverage at 1 unit for every ~1-3 g CHO consumed * Additional correction based on "trends" - patient tired on interview and not willing/able to discuss further * Jardiance * Trulicity * HbA1c 8.1% on 06/13/20 ASSESSMENT: 07/18: * CG received a total of 140 units of insulin yesterday * 70 units basal + 70 units bolus * BSGs were acceptable: 210-431-55-179 mg/dL * Fasting BSG was controlled at 117 mg/dL today * No change to basal * Lunchtime BSG continues to be elevated, was 344 mg/dL * Spoke with RN who reports no snacking in between meals * Will tighten carb ratio with breakfast only tomorrow 07/16: * BSGs yesterday were [phone] mg/dL, well controlled * Received a total of 159 units of insulin yesterday * 70 units basal + 89 units bolus * Fasting BSG this AM was 136 mg/dL, controlled * Will continue with total daily dose of 70 units but split Lantus to 35 units SC BID as patient was previously well controlled on BID Lantus dosing * BSGs have been trending down throughout the day * Could be secondary to large Lantus dose in AM * Could be secondary to tight carb ratio. Patient typically has postprandial hyperglycemia at lunchtime so will not adjust CR for now. May need to loosen CR with lunch. PLAN FOR INPATIENT GLYCEMIC CONTROL: * Hold all outpatient diabetes medications * Basal insulin - no changed * Lantus 35 units SQ BID * Bolus insulin - tighten CR with breakfast * NovoLog per scale ACHS or Q6hrs while NPO * Goal Range: Low 110 mg/dL - High 140 mg/dL * Breakfast - Correction Factor: 15 mg/dL/unit; Nutritional / Prandial insulin per carb ratio of 1 unit per 2 grams CHO consumed * Lunch, Dinner, HS - Correction Factor: 15 mg/dL/unit; Nutritional / Prandial insulin per carb ratio of 1 unit per 2.5 grams CHO consumed PLAN FOR DISCHARGE: * Most recent HbA1c is 7.6% which is almost at goal and improving from previous HbA1c's. Continue outpatient regimen upon discharge.
[2020-07-18] MEDS: DEXTROSE 50% 50 ML SYRINGE IV PRN (16:39)
[2020-07-18] MEDS: WARFARIN SOD 2 MG TAB PO SCH (18:02)
--- NOTE | 2020-07-18 18:15 | Hospitalist Progress Note ---
Date of Service July 18, 2020 Assessment & Plan (1) Diabetic ulcer of left foot associated with type 2 diabetes mellitus, with fat layer exposed: per Dr. Forrester notes: History of poor compliance with medication and wound care, He was recently admitted with prolonged hospital stay secondary to diabetic left foot ulcer, underwent I&D , and antibiotic beads placement. Sent from wound clinic as worsening wound with wound dehiscence wound culture : Pseudomonas ID consult requested - recommend IV Zosyn while admitted, Levaquin + Cephalexin on discharge febrile episodes noted --> improving repeat blood culture ordered --> pending Orthopedics consulted--> possible drainage of wound on Thursday COVID-19 positive status asymptomatic no resp or GI symptoms No hypoxia or shortness of breath no fever or chills O2 sats at baseline no changes with respiration repeat CXR: possible right sided infiltrates fortunately no symptoms, hypoxia--> monitor closely Continue airborne isolation precaution as per protocol repeat COVID 19 test today 07/15 + ve result updated to pt Chronic combined systolic and diastolic CHF appears euvolemic on Torsemide 60 mg Twice daily Type 2 diabetes poorly controlled on insulin pump per Dr. Forrester notes: Hold insulin pump during acute illness hospital admission Pharmacy consulted for glycemic management -appreciate inp ut on insulin SSI and Lantus basal bolus History of A. fib: per Dr. Forrester notes: On metoprolol-dose was adjusted recently by cardiology Afib rvr possible due to febrile episode tx to PCU /COvid unit PRN IV lopressor for HR> 100 Continue on Coumadin, INR therapeutic Narcotic pain medication abuse/misuse per Dr. Forrester notes: Complains of severe left foot pain requesting for IV Dilaudid ordered added stool softener for constipation Patient is counseled to limit narcotic pain medication(during last admission patient was found oversedated after receiving narcotic pain medications, required Narcan /BiPAP support) Patient is morbidly obese, significant obstructive sleep apnea , noncompliant with CPAP Excessive sedation from narcotic pain medication can put in severe respiratory failure with CO2 retention. on IV dialudid /and PRN Oxycodone , pain medications needs to be on hold on any symptoms of excessive sedation of hypoxia CODE STATUS: Full code DVT prophylaxes : on Coumadin Disposition : will need rehab after discharge for continued wound care pt is agreeable Admission and Anticipated Discharge Date Admission Date: July 12, 2020 Subjective ff up for DM ulcer/wound, COVID 19 pneumonia, etc seen resting in bedside chair comfortable not in distress states he feels fine overall no dyspnea, cough, chills, chest pain, changes with breathing reports leg/foot pain improving no other symptoms Review of Systems Review of Systems: All systems reviewed & are unremarkable except as noted in Subjective Physical Exam Physical Exam: General- oriented x 3, not in distress, speaks in sentences with no effort or accessory muscle use Eyes- anicteric Neck- no JVD Lungs- clear breath sounds bilaterally no crackles, wheezing Heart- normal rate, regular rhythm; no murmurs Abdomen- normal bowel sounds, nondistended, soft, nontender Extremities-left leg: heavy dressing in place, no bleeding/discharge BL LE edema- much improved compared to last admission Neuro- alert, oriented x 3; no gross focal neurologic deficits Skin- warm & dry Results & Data Results & Data ([facility]) Vital Signs (Past 12 Hours) Vital Signs Temp Pulse Pulse Resp BP BP Pulse Ox 07/18/20 15:47 37.0 C 82 18 119/70 96 07/18/20 14:58 65 07/18/20 12:11 37.0 C 81 19 111/60 94 07/18/20 07:58 37.8 C H 102 H 19 141/80 H 94 07/18/20 07:30 97 H all noted and reviewed including below Laboratory Results Laboratory Results - last 24 hr 07/17/20 07/18/20 07/18/20 21:43 06:28 06:28 WBC 4.28 L RBC 3.88 L Hgb 10.5 L Hct 33.2 L MCV 85.6 MCH 27.1 MCHC 31.6 L RDW Std Deviation 54.8 H RDW Coeff of Мария 17.7 H Plt Count 229 MPV 8.6 PT INR Sodium 135 L Potassium 2.8 L Chloride 98 Carbon Dioxide 30 Anion Gap 7.0 BUN 22 H Creatinine 1.55 H Est Cr Clr Drug Dosing 86.8 Est GFR ( Amer) 57.2 Est GFR (Non-Af Amer) 49.3 BUN/Creatinine Ratio 14.2 Glucose 107 H POC Glucose 179 H Calcium 7.6 L 07/18/20 07/18/20 07/18/20 06:28 08:00 12:12 WBC RBC Hgb Hct MCV MCH MCHC RDW Std Deviation RDW Coeff of Мария Plt Count MPV PT 20.0 H INR 2.1 H Sodium Potassium Chloride Carbon Dioxide Anion Gap BUN Creatinine Est Cr Clr Drug Dosing Est GFR ( Amer) Est GFR (Non-Af Amer) BUN/Creatinine Ratio Glucose POC Glucose 117 H 344 H* Calcium 07/18/20 07/18/20 07/18/20 16:28 16:29 17:04 WBC RBC Hgb Hct MCV MCH MCHC RDW Std Deviation RDW Coeff of Мария Plt Count MPV PT INR Sodium Potassium Chloride Carbon Dioxide Anion Gap BUN Creatinine Est Cr Clr Drug Dosing Est GFR ( Amer) Est GFR (Non-Af Amer) BUN/Creatinine Ratio Glucose POC Glucose 38 L* 37 L* 142 H Calcium
[2020-07-18] MEDS: PIPERACILLIN/TAZOBACTAM 4.5 GM in DEXTROSE 5% 100 ML IV SCH (20:25)
[2020-07-18] MEDS: METOPROLOL SUCC 50MG EXT REL TAB PO SCH (20:28)
[2020-07-18] MEDS ORDERED: INSULIN GLARGINE SOLOSTAR 100 UNITS/ML 3 ML PEN SQ SCH (21:30)
[2020-07-18] MEDS: oxyCODONE HCL IR 5 MG TAB (IMMEDIATE RELEASE) PO PRN (22:35)
[2020-07-19] MEDS: PIPERACILLIN/TAZOBACTAM 4.5 GM in DEXTROSE 5% 100 ML IV SCH ×3 (03:39→21:06)
[2020-07-19] MEDS: LEVOTHYROXINE SODIUM 100 MCG TABLET PO SCH (05:42)
[2020-07-19] MEDS: ACETAMINOPHEN 325 MG TAB PO PRN ×3 (05:42→21:50)
[2020-07-19] MEDS: COLLAGENASE OINT 30 GM TUBE TOP SCH (08:28)
[2020-07-19] MEDS: HYOSCYAMINE SULFATE 0.125 MG TAB PO SCH ×3 (08:28→21:10)
[2020-07-19] MEDS: ASPIRIN 81 MG ECTAB PO SCH (08:29)
[2020-07-19] MEDS: TORSEMIDE 20 MG TAB PO SCH ×2 (08:29→21:08)
[2020-07-19] MEDS: FLUTICASONE/VILANTEROL 200/25MCG 14 PUFFS/INHALER INH SCH (08:30)
[2020-07-19] MEDS: guaiFENesin 600 MG TABCR PO SCH ×2 (08:31→21:11)
[2020-07-19] MEDS: GABAPENTIN 300 MG CAP PO SCH ×3 (08:33→21:11)
[2020-07-19] MEDS: PANTOprazole 40 MG TAB PO SCH (08:34)
[2020-07-19] MEDS: POTASSIUM CHLORIDE CRTAB 20 MEQ TABCR PO SCH ×2 (08:34→21:08)
[2020-07-19] MEDS: FLUTICASONE PROPIONATE NA SPR 16 GM BTL NAE SCH ×2 (08:35→21:08)
[2020-07-19] MEDS: bisacodyL 5 MG TABEC PO SCH (08:35)
[2020-07-19] MEDS: MAGNESIUM OXIDE 400 MG TAB PO SCH (08:35)
[2020-07-19] MEDS: METOPROLOL SUCC 25MG EXT REL TAB PO SCH (08:36)
--- NOTE | 2020-07-19 09:20 | Pharmacy Report ---
Pharmacy Glycemic Short Note 2 - Date of Service July 19, 2020 - Glycemic Short BSG Results (Last 24 hours): 07/18/20 07/18/20 07/18/20 12:12 16:28 16:29 POC Glucose 344 H* 38 L* 37 L* 07/18/20 07/18/20 07/18/20 17:04 20:43 20:45 POC Glucose 142 H 62 L* 67 L* 07/18/20 07/18/20 07/19/20 21:12 21:55 07:51 POC Glucose 63 L* 117 H 102 H OUTPATIENT ANTIDIABETIC REGIMEN: * Toujeo/Humalog listed along with Novolog pump - clarified with patient. He is only on pump as follows: * 9.4 units/hr basal * CHO coverage at 1 unit for every ~1-3 g CHO consumed * Additional correction based on "trends" - patient tired on interview and not willing/able to discuss further * Jardiance * Trulicity * HbA1c 8.1% on 06/13/20 ASSESSMENT: 07/19: * Patient received a total of 160 units of insulin yesterday * 65 units basal + 95 units bolus * BSGs were erratic: [phone] mg/dL * Patient did experience two episodes of hypoglycemia yesterday * He was symptomatic (blurry vision, clammy) with the severe hypoglycemia at dinner of 37 mg/dL. This resolved with an amp of D50. He was not symptomatic with the low of 67 mg/dL at bedtime. * This is likely due to too aggressive Novolog parameters. Correction factor was loosened yesterday. Will loosen carb ratio today. * Fasting BSG was well controlled at 102 mg/dL this morning * Patient did receive 5 units less of Lantus last evening due to hypoglycemia. * Will reduce Lantus slightly today to ensure patient does not become hypoglycemic although I believe this is a bolus insulin issue and not related to basal insulin. 07/18: * CG received a total of 140 units of insulin yesterday * 70 units basal + 70 units bolus * BSGs were acceptable: 637-647-20-179 mg/dL * Fasting BSG was controlled at 117 mg/dL today * No change to basal * Lunchtime BSG continues to be elevated, was 344 mg/dL * Spoke with RN who reports no snacking in between meals * Will tighten carb ratio with breakfast only tomorrow 07/16: * BSGs yesterday were [phone] mg/dL, well controlled * Received a total of 159 units of insulin yesterday * 70 units basal + 89 units bolus * Fasting BSG this AM was 136 mg/dL, controlled * Will continue with total daily dose of 70 units but split Lantus to 35 units SC BID as patient was previously well controlled on BID Lantus dosing * BSGs have been trending down throughout the day * Could be secondary to large Lantus dose in AM * Could be secondary to tight carb ratio. Patient typically has postprandial hyperglycemia at lunchtime so will not adjust CR for now. May need to loosen CR with lunch. PLAN FOR INPATIENT GLYCEMIC CONTROL: * Hold all outpatient diabetes medications * Basal insulin - decreased * Lantus 30 units SQ BID * Bolus insulin - loosen CF/CR with lunch,dinner,HS * NovoLog per scale ACHS or Q6hrs while NPO * Goal Range: Low 110 mg/dL - High 140 mg/dL * Breakfast - Correction Factor: 15 mg/dL/unit; Nutritional / Prandial insulin per carb ratio of 1 unit per 2 grams CHO consumed * Lunch, Dinner, HS - Correction Factor: 20 mg/dL/unit; Nutritional / Pr andial insulin per carb ratio of 1 unit per 3 grams CHO consumed PLAN FOR DISCHARGE: * Most recent HbA1c is 7.6% which is almost at goal and improving from previous HbA1c's. Continue outpatient regimen upon discharge.
[2020-07-19 09:37] LABS: Prothrombin Time 19.6 Seconds (9.0-12.0)
[2020-07-19] MEDS: INSULIN GLARGINE SOLOSTAR 100 UNITS/ML 3 ML PEN SQ SCH ×2 (09:47→21:15)
[2020-07-19] MEDS: INSULIN ASPART 100 UNITS/ML 3 ML PEN SC SCH ×4 (09:47→21:20)
[2020-07-19 09:58] LABS: BUN Creatinine Ratio 13.8 (10-20); Calcium 7.8 mg/dl (8.5-10.1); Creatinine Clr Calc Pharmacy 84.6 ml/min; Est GFR (African American) 55.4; Est GFR (Non-African American) 47.8
[2020-07-19] MEDS: CLOBETASOL PROPIONATE 0.05% OINT 15 GM TUBE EXT SCH ×2 (11:29→21:07)
[2020-07-19 11:53] LABS: Potassium 3.1 mmol/L (3.5-5.1)
--- NOTE | 2020-07-19 12:31 | Hospitalist Progress Note ---
Date of Service July 19, 2020 Assessment & Plan (1) Diabetic ulcer of left foot associated with type 2 diabetes mellitus, with fat layer exposed: He was recently admitted with prolonged hospital stay secondary to a left lateral diabetic neuropathic foot ulcer with deep abscess of the foot. On 06/15 he underwent I&D with wound debridement by Dr. Tiago Batse with subsequent placement of antibiotic beads. Since that time he was followed by wound care and reported compliance with doxycycline, however, he suffered a wound dehiscence. He came back to the ER from wound clinic with wound dehiscence and decompensation of area without sepsis. Wound culture revealed pseudomonas and Daptomycin was eventually stopped with continuation of Zosyn. Wound care this admission evaluated him with new instructions for QOD dressing, ID consulted and recommending two weeks IV antibiotics. He continues on Zosyn at this time with improvement in surrounding LLE cellulitis of the leg. Orthopedics consulted and feels no urgency for repeat debridement at this time. MRI foot last month revealed no evidence of osteomyelitis. He has been having fevers and also has coinfection with novel coronavirus with evidence of pneumonia on CXR. Ortho with plans for re-evaluation over next couple of days. (2) SARS-CoV-2 positive: CXR with infiltrates although patient with minimal symptoms. Some fevers present, uncertain if foot infection playing a role there, although he continues on broad spectrum antibiotics. He is currently oxygenating well on room air, however, would have a very low threshold for starting steroid therapy if he drops his oxygen levels with his high risk of severe disease from coronavirus given obesity and diabetes risk factors. (3) Cellulitis of left lower leg: Improved with antibiotic therapy as above. (4) Atrial fibrillation: Therapeutic on coumadin, cont metoprolol for rate control. (5) Chronic diastolic heart failure: Chronic combined systolic and diastolic CHF appears euvolemic on Torsemide 60 mg Twice daily per home regimen. (6) Chronic pain: Typically uses tramadol at home but has been allowed to use oxycodone this admission. Cont PRN, and monitor closely for excessive sleepiness in setting of NINA. (7) Diabetes type 2, uncontrolled: Uncontrolled, with A1C 7.6 and complications including neuropathy. Home insulin pump held on admission and glycemic pharmacist assisting with basal bolus insulin management while hospitalized. (8) Morbid obesity: Lifestyle modifications enforced for goal decreased percent body fat overall. (9) DVT prophylaxis: coumadin with therapeutic INR Full Code Dispo-to home when medically stable, pending Ortho plans for repeat debridement. Katharina Flores DO [facility] Hospitalist Admission and Anticipated Discharge Date Admission Date: July 12, 2020 Subjective 54 yo COVID positive man with diabetic foot infection. He denies pain Reports he is not able to bear weight on his left foot denies cough has had fevers but denies this or chills tolerating PO Review of Systems Review of Systems: All systems reviewed & are unremarkable except as noted in Subjective Physical Exam Physical Exam: CONSTITUTIONAL: morbid obesity, vitals as above, generally well-appearing EYES: normal conjunctivae, no scleral icterus ENT: external ear and nose normal, MMM RESPIRATORY: clear to auscultation bilaterally, no crackles, rales or wheezes, normal respiratory effort CARDIOVASCULAR: regular rate and rhythm, S1 and 2 heard without murmurs, gallops or rubs, no JVD, no peripheral edema GASTROINTESTINAL: soft, nontender, nondistended, no guarding, protuberant, large pannus MUSCULOSKELETAL: sitting in bedside chair, generalized weakness, limited mobility 2/2 illness and body habitus, head is normocephalic and atraumatic SKIN: warm and dry NEUROLOGIC: CN 2-12 grossly intact, normal cognition, no gross focal deficits. PSYCHIATRIC: alert cooperative and oriented to person, place and time. Results & Data Results & Data ([facility]) Vital Signs (Past 12 Hours) Vital Signs Temp Pulse Pulse Resp BP BP Pulse Ox 07/19/20 11:59 36.8 C 96 H 18 137/77 95 07/19/20 07:54 37.2 C 100 H 20 122/65 94 07/19/20 07:00 90 07/19/20 03:43 38.4 C H 93 H 20 119/78 97 07/19/20 01:18 38.5 C H 07/19/20 00:31 39.0 C H 97 H 22 100/71 94 Laboratory Results Short CBC 07/12/20 07/13/20 07/14/20 Range/Units 17:43 06:15 05:57 Creatinine 1.70 H 1.68 H 1.62 H (0.6-1.4) mg/dl 07/15/20 07/16/20 07/17/20 Range/Units 08:15 07:23 16:14 Creatinine 1.64 H 1.52 H 1.58 H (0.6-1.4) mg/dl 07/18/20 07/19/20 Range/Units 06:28 08:50 Creatinine 1.55 H 1.59 H (0.6-1.4) mg/dl BMP 07/19/20 08:50 Sodium 134 L Potassium 3.1 L Chloride 97 L Carbon Dioxide 31 BUN 22 H Creatinine 1.59 H Glucose 89 Calcium 7.8 L Medications Administered Current Inpatient Medications Acetaminophen (Acetaminophen 325 Mg Tab) 650 mg PO Q4H PRN PRN Reason: Pain or Fever Stop: 08/11/20 20:04 Last Admin: 07/19/20 05:42 Dose: 650 mg Documented by: Al Hydrox/Mg Hydrox/Simethicone (Aluminum/Magnesium Susp 30 Ml Udc) 15 ml PO Q4H PRN PRN Reason: Dyspepsia Stop: 08/11/20 20:04 Aspirin (Aspirin 81 Mg Ectab) 81 mg PO DAILY [facility] Stop: 08/12/20 08:59 Last Admin: 07/19/20 08:29 Dose: 81 mg Documented by: Atorvastatin Calcium (Atorvastatin 40 Mg Tab) 80 mg PO PM MATT Stop: 08/16/20 21:28 Last Admin: 07/18/20 20:27 Dose: 80 mg Documented by: Bisacodyl (Bisacodyl 5 Mg Tabec) 10 mg PO DAILY [facility] Stop: 08/17/20 08:59 Last Admin: 07/19/20 08:35 Dose: Not Given Documented by: Clobetasol Propionate (Clobetasol Propionate 0.05% Oint 15 Gm Tube) 1 appln EXT BID MATT Stop: 08/11/20 20:59 Last Admin: 07/19/20 11:29 Dose: 1 appln Documented by: Collagenase (Collagenase Oint 30 Gm Tube) 1 appln TOP DAILY [facility] Stop: 08/12/20 08:59 Last Admin: 07/19/20 08:28 Dose: 1 appln Documented by: Dextrose (Dextrose 50% 50 Ml Syringe) 25 - 50 ml IV UD PRN; Protocol PRN Reason: Hypoglycemia Protocol Stop: 08/11/20 20:04 Last Admin: 07/18/20 16:39 Dose: 50 ml Documented by: Fluticasone Propionate (Fluticasone Propionate Na Spr 16 Gm Btl) 2 sprays DAIN BID [facility] Stop: 08/11/20 20:59 Last Admin: 07/19/20 08:35 Dose: 2 sprays Documented by: Fluticasone/Vilanterol (Fluticasone/Vilanterol 200/25mcg 14 Puffs/Inhaler) 1 puffs INH DAILY MATT Stop: 08/11/20 20:59 Last Admin: 07/19/20 08:30 Dose: 1 puffs Documented by: Gabapentin (Gabapentin 300 Mg Cap) 300 mg PO TID MATT Stop: 08/11/20 20:59 Last Admin: 07/19/20 08:33 Dose: 300 mg Documented by: Glucagon (Glucagon For Inj 1 Mg Vial) 1 mg SQ UD PRN; Protocol PRN Reason: Hypoglycemia Protocol Stop: 08/11/20 20:04 Glucose (Glucose 10 Tabs/Tube) 4 - 8 tabs PO UD PRN; Protocol PRN Reason: Hypoglycemia Protocol Stop: 08/11/20 20:04 Glucose (Glucose 40% Gel 15 Gm Tube) 15 - 30 gm PO UD PRN; Protocol PRN Reason: Hypoglycemia Protocol Stop: 08/11/20 20:04 Guaifenesin (Guaifenesin 600 Mg Tabcr) 600 mg PO Q12 [facility]ATT Stop: 08/14/20 20:59 Last Admin: 07/19/20 08:31 Dose: 600 mg Documented by: Hydrocortisone (Hydrocortisone Acetate 25 Mg Supp) 25 mg [place] BID PRN PRN Reason: Hemorrhoids Stop: 08/13/20 02:07 Last Admin: 07/18/20 09:16 Dose: 25 mg Documented by: Hydromorphone HCl (Hydromorphone Inj 1 Mg/Ml Syringe) 1 mg IV Q3H PRN PRN Reason: Pain Stop: 07/27/20 01:47 Last Admin: 07/15/20 12:29 Dose: 1 mg Documented by: Hyoscyamine (Hyoscyamine Sulfate 0.125 Mg Tab) 0.125 mg PO TID [facility] Stop: 08/11/20 20:59 Last Admin: 07/19/20 08:28 Dose: 0.125 mg Documented by: Piperacillin Sod/Tazobactam (Sod 4.5 gm/ Dextrose) 120 mls @ 30 mls/hr IV Q8H [facility]; Protocol Stop: 07/25/20 19:59 Last Infusion: 07/19/20 09:59 Dose: Infused Documented by: Insulin Aspart (Insulin Aspart 100 Units/Ml 3 Ml Pen) 0 units SC 1130,1630,2100 [facility]; Protocol Stop: 08/11/20 20:59 Last Admin: 07/18/20 17:44 Dose: 20 units Documented by: Insulin Aspart (Insulin Aspart 100 Units/Ml 3 Ml Pen) 0 units SC 0730 [facility]; Protocol Stop: 08/18/20 07:29 Last Admin: 07/19/20 09:47 Dose: 23 units Documented by: Insulin Glargine (Insulin Glargine Solostar 100 Units/Ml 3 Ml Pen) 30 units SQ BID [facility]; Protocol Stop: 08/18/20 09:14 Last Admin: 07/19/20 09:47 Dose: 30 units Documented by: Ipratropium Disney (Ipratropium Disney Neb Soln 0.02% 2.5 Ml Vial) 0.5 mg INH Q2H PRN PRN Reason: Shortness Of Breath Or Wheezing Stop: 08/14/20 19:29 Levalbuterol HCl (Levalbuterol 1.25mg/0.5ml Neb) 1.25 mg INH Q2H PRN PRN Reason: Shortness Of Breath Or Wheezing Stop: 08/14/20 19:29 Levothyroxine Sodium (Levothyroxine Sodium 100 Mcg Tablet) 100 mcg PO DAILYBB [facility] Stop: 08/12/20 06:29 Last Admin: 07/19/20 05:42 Dose: 100 mcg Documented by: Magnesium Hydroxide (Magnesium Hydroxide Susp 30 Ml Udc) 30 ml PO Q12H PRN PRN Reason: Constipation Stop: 08/11/20 20:04 Last Admin: 07/16/20 17:15 Dose: 30 ml Documented by: Magnesium Oxide (Magnesium Oxide 400 Mg Tab) 400 mg PO QAM [facility] Stop: 08/12/20 08:59 Last Admin: 07/19/20 08:35 Dose: 400 mg Documented by: Metoprolol Succinate (Metoprolol Succ 50mg Ext Rel Tab) 50 mg PO QPM [facility] Stop: 08/11/20 20:59 Last Admin: 07/18/20 20:28 Dose: 50 mg Documented by: Metoprolol Succinate (Metoprolol Succ 25mg Ext Rel Tab) 75 mg PO QAM [facility] Stop: 08/12/20 08:59 Last Admin: 07/19/20 08:36 Dose: 75 mg Documented by: Miscellaneous (Carbohydrates For Hypoglycemia ) 15 - 30 gm PO UD PRN PRN Reason: Hypoglycemia Protocol Stop: 08/11/20 20:04 Last Admin: 07/13/20 16:50 Dose: 15 gm Documented by: Miscellaneous Information (Pharmacy Glycemic Mgmt Consult) 1 ea N/A UD MATT; Protocol Stop: 08/11/20 20:17 Miscellaneous Information (Piperacill/Tazobac Consult Active) 1 ea N/A UD PRN PRN Reason: Consult Stop: 08/17/20 13:53 Nitroglycerin (Nitroglycerin Sl 0.4 Mg/Tab Tab) 0.4 mg SL Q5M PRN PRN Reason: Chest Pain Stop: 08/11/20 20:04 Ondansetron HCl (Ondansetron Inj 2 Mg/Ml 2 Ml Vial) 4 mg IV Q6H PRN PRN Reason: Nausea Stop: 08/11/20 20:04 Oxycodone HCl (Oxycodone Hcl Ir 5 Mg Tab (Immediate Release)) 5 mg PO Q6H PRN PRN Reason: Pain Stop: 07/29/20 08:56 Last Admin: 07/18/20 22:35 Dose: 5 mg Documented by: Pantoprazole Sodium (Pantoprazole 40 Mg Tab) 40 mg PO QAM [facility] Stop: 08/12/20 08:59 Last Admin: 07/19/20 08:34 Dose: 40 mg Documented by: Polyethylene Glycol (Polyethylene (Miralax) 17 Gm Pack) 17 gm PO DAILY PRN PRN Reason: Constipation Stop: 08/11/20 20:04 Last Admin: 07/17/20 01:06 Dose: 17 gm Documented by: Potassium Chloride (Potassium Chloride Crtab 20 Meq Tabcr) 40 meq PO BID [facility] Stop: 08/17/20 09:14 Last Admin: 07/19/20 08:34 Dose: 40 meq Documented by: Torsemide (Torsemide 20 Mg Tab) 60 mg PO BID [facility] Stop: 08/11/20 20:59 Last Admin: 07/19/20 08:29 Dose: 60 mg Documented by: Warfarin Sodium (Warfarin Sod 2 Mg Tab) 2 mg PO DAILY@1600 [facility] Stop: 08/13/20 15:59 Last Admin: 07/18/20 18:02 Dose: 2 mg Documented by: Zolpidem Tartrate (Zolpidem Tartrate 5 Mg Tab) 5 mg PO HS PRN PRN Reason: Sleep Stop: 08/11/20 20:04 Last Admin: 07/18/20 22:34 Dose: 5 mg Documented by:
--- NOTE | 2020-07-19 13:11 | Orthopedic Progress Note ---
Date of Service July 19, 2020 Assessment & Plan (1) Diabetic foot ulcer: Diabetic foot ulcer over the lateral left foot. Heel ulcer. No drainage or erythema noted today. He continues to have less swelling of the lower extremity and less bright red cellulitis of the lower extremity as well. I have discussed the case with Dr. Bates. He will see the patient over the weekend to reassess. Continue current IV antibiotics. Admission and Anticipated Discharge Date Admission Date: July 12, 2020 Subjective Patient seen with wound care team today. Patient sitting up in chair awake and alert. No complaints today. States he feels good today. Physical Exam Physical Exam: Dressings removed from the left foot. His heel wound looks better than a few days ago. It appears to be drying up. Less maceration and less drainage. His ulcer over the left lateral foot continues to look pretty good. I cannot express any purulence from this area. There is no fibrous tissue that I can appreciate however it does look like it possibly is tunneling medially. No foul odor. No overt erythema around the ulcer itself or the suture line that is still intact. Aquacel Ag replaced on the wounds and covered with gauze and Kerlix. Results & Data ([facility]) Vital Signs (Past 12 Hours) Vital Signs Temp Pulse Pulse Resp BP BP Pulse Ox 07/19/20 11:59 36.8 C 96 H 18 137/77 95 07/19/20 07:54 37.2 C 100 H 20 122/65 94 07/19/20 07:00 90 07/19/20 03:43 38.4 C H 93 H 20 119/78 97 07/19/20 01:18 38.5 C H (1) Diabetic foot ulcer Diabetes mellitus type: type 2 Diabetic foot ulcer location: unspecified part of foot Laterality: left Non-pressure ulcer stage: unspecified non-pressure ulcer stage Qualified Code(s): E11.621 - Type 2 diabetes mellitus with foot ulcer; L97.529 - Non-pressure chronic ulcer of other part of left foot with unspecified severity
[2020-07-19] MEDS: oxyCODONE HCL IR 5 MG TAB (IMMEDIATE RELEASE) PO PRN ×2 (13:24→21:13)
[2020-07-19] MEDS: WARFARIN SOD 2 MG TAB PO SCH (17:52)
[2020-07-19] MEDS: ATORVASTATIN 40 MG TAB PO SCH (21:10)
[2020-07-19] MEDS: METOPROLOL SUCC 50MG EXT REL TAB PO SCH (21:13)
[2020-07-20] MEDS: ZOLPIDEM TARTRATE 5 MG TAB PO PRN (01:15)
[2020-07-20] MEDS: oxyCODONE HCL IR 5 MG TAB (IMMEDIATE RELEASE) PO PRN (05:12)
[2020-07-20] MEDS: LEVOTHYROXINE SODIUM 100 MCG TABLET PO SCH (05:12)
[2020-07-20] MEDS: PIPERACILLIN/TAZOBACTAM 4.5 GM in DEXTROSE 5% 100 ML IV SCH ×3 (05:12→22:29)
[2020-07-20 07:16] LABS: INR 2.4 (0.9-1.1); Prothrombin Time 22.5 Seconds (9.0-12.0)
[2020-07-20] MEDS: FLUTICASONE PROPIONATE NA SPR 16 GM BTL NAE SCH (09:01)
[2020-07-20] MEDS: guaiFENesin 600 MG TABCR PO SCH ×2 (09:02→20:16)
[2020-07-20] MEDS: GABAPENTIN 300 MG CAP PO SCH ×3 (09:02→20:16)
[2020-07-20] MEDS: FLUTICASONE/VILANTEROL 200/25MCG 14 PUFFS/INHALER INH SCH (09:02)
[2020-07-20] MEDS: TORSEMIDE 20 MG TAB PO SCH ×2 (09:03→20:14)
[2020-07-20] MEDS: MAGNESIUM OXIDE 400 MG TAB PO SCH (09:05)
[2020-07-20] MEDS: POTASSIUM CHLORIDE CRTAB 20 MEQ TABCR PO SCH ×2 (09:06→20:15)
[2020-07-20] MEDS: PANTOprazole 40 MG TAB PO SCH (09:06)
[2020-07-20] MEDS: HYOSCYAMINE SULFATE 0.125 MG TAB PO SCH ×3 (09:06→20:15)
[2020-07-20] MEDS: ASPIRIN 81 MG ECTAB PO SCH (09:08)
[2020-07-20] MEDS: COLLAGENASE OINT 30 GM TUBE TOP SCH (09:09)
[2020-07-20] MEDS: dexAMETHasone 6 MG in SYRINGE 0 ML IV SCH (09:12)
[2020-07-20] MEDS: METOPROLOL SUCC 25MG EXT REL TAB PO SCH (09:13)
[2020-07-20] MEDS: bisacodyL 5 MG TABEC PO SCH (09:13)
[2020-07-20] MEDS: INSULIN GLARGINE SOLOSTAR 100 UNITS/ML 3 ML PEN SQ SCH ×2 (09:14→21:07)
[2020-07-20] MEDS: INSULIN ASPART 100 UNITS/ML 3 ML PEN SC SCH ×4 (09:15→21:08)
[2020-07-20] MEDS: CLOBETASOL PROPIONATE 0.05% OINT 15 GM TUBE EXT SCH ×2 (09:22→19:45)
[2020-07-20] MEDS ORDERED: INSULIN HUMAN NPH SC SCH (10:15)
--- NOTE | 2020-07-20 10:37 | Pharmacy Report ---
Pharmacy Glycemic Short Note 2 - Date of Service July 20, 2020 - Glycemic Short BSG Results (Last 24 hours): 07/19/20 07/19/20 07/19/20 11:56 15:53 20:55 POC Glucose 146 H 134 H 161 H 07/20/20 07:26 POC Glucose 126 H OUTPATIENT ANTIDIABETIC REGIMEN: * Toujeo/Humalog listed along with Novolog pump - clarified with patient. He is only on pump as follows: * 9.4 units/hr basal * CHO coverage at 1 unit for every ~1-3 g CHO consumed * Additional correction based on "trends" - patient tired on interview and not willing/able to discuss further * Jardiance * Trulicity * HbA1c 8.1% on 06/13/20 ASSESSMENT: 07/20: * Patient received a total of 121 units of insulin yesterday * 60 units basal + 61 units bolus * BSGs were well controlled yesterday: [id number] mg/dL * Fasting BSG was well controlled this AM at 126 mg/dL * Decided to increase Lantus back to 35 units daily given that patient was stable on this dose previously and fasting increased. Again, do not believe basal caused hypoglycemia on evening of 07/19 * No changes necessary to Novolog regimen * Patient was started on 6 mg of IV dexamethasone today * Will add 40 units of NPH to cover for steroid induced hyperglycemia * This is 0.35 units/kg based on adjusted body weight for elevated BMI * Following BSGs closely today given large amount of insulin and addition of dexamethasone. May need to loosen novolog or decrease lantus this evening. 07/19: * Patient received a total of 160 units of insulin yesterday * 65 units basal + 95 units bolus * BSGs were erratic: [id number] mg/dL * Patient did experience two episodes of hypoglycemia yesterday * He was symptomatic (blurry vision, clammy) with the severe hypoglycemia at dinner of 37 mg/dL. This resolved with an amp of D50. He was not symptomatic with the low of 67 mg/dL at bedtime. * This is likely due to too aggressive Novolog parameters. Correction factor was loosened yesterday. Will loosen carb ratio today. * Patient received incorrect dose of Novolog with breakfast. Admin 23 units but should have been 36 units. * Fasting BSG was well controlled at 102 mg/dL this morning * Patient did receive 5 units less of Lantus last evening due to hypoglycemia. * Will reduce Lantus slightly today to ensure patient does not become hypoglycemic although I believe this is a bolus insulin issue and not related to basal insulin. PLAN FOR INPATIENT GLYCEMIC CONTROL: * Hold all outpatient diabetes medications * Basal insulin - increased, added NPH * Lantus 35 units SQ BID * NPH 40 units SQ daily - to be given with dexamethasone * Bolus insulin - no change * NovoLog per scale ACHS or Q6hrs while NPO * Goal Range: Low 110 mg/dL - High 140 mg/dL * Breakfast - Correction Factor: 15 mg/dL/unit; Nutritional / Prandial insulin per carb ratio of 1 unit per 2 grams CHO consumed * Lunch, Dinner, HS - Correction Factor: 20 mg/dL/unit; Nutritional / Prandial insulin per carb ratio of 1 unit per 3 grams CHO consumed PLAN FOR DISCHARGE: * Most recent HbA1c is 7.6% which is almost at goal and improving from previous HbA1c's. Continue outpatient regimen upon discharge.
[2020-07-20] MEDS: ACETAMINOPHEN 325 MG TAB PO PRN (12:19)
[2020-07-20] MEDS: WARFARIN SOD 2 MG TAB PO SCH (15:36)
[2020-07-20] MEDS ORDERED: FLUTICASONE PROPIONATE NA SPR 16 GM BTL NAE PRN (19:25)
[2020-07-20] MEDS ORDERED: REMDESIVIR 200 MG in SODIUM CHLORIDE 0.9% 210 ML IV STA (19:25)
[2020-07-20] MEDS: ATORVASTATIN 40 MG TAB PO SCH (20:16)
[2020-07-20] MEDS: METOPROLOL SUCC 50MG EXT REL TAB PO SCH (20:18)
--- NOTE | 2020-07-20 21:49 | Hospitalist Progress Note ---
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 On 06/15 he underwent I&D with wound debridement by Dr. Tiago Bates with subsequent placement of antibiotic beads. Since that time he was followed by wound care and reported compliance with doxycycline, however, he suffered a wound dehiscence. He came back to the ER from wound clinic with wound dehiscence and decompensation of area without sepsis. Wound culture revealed pseudomonas and Daptomycin was eventually stopped with continuation of Zosyn. Wound care this admission evaluated him with new instructions for QOD dressing, ID consulted and recommending two weeks IV antibiotics. He continues on Zosyn at this time with improvement in surrounding LLE cellulitis of the leg. Orthopedics consulted and feels no urgency for repeat debridement at this time. MRI foot last month revealed no evidence of osteomyelitis. He has been having fevers and also has coinfection with novel coronavirus with evidence of pneumonia on CXR. Ortho with plans for re-evaluation over next couple of days. (2) SARS-CoV-2 positive: CXR with infiltrates although patient with minimal symptoms. Some fevers present, uncertain if foot infection playing a role there, although he continues on broad spectrum antibiotics. He has a very high risk for progression of severe disease from obesity and diabetes. Overnight oxygen levels fell below the 94% threshold and he is being started on steroids and remdesivir therapy. Cont supportive care as needed. (3) Cellulitis of left lower leg: Improved with antibiotic therapy as above. (4) Atrial fibrillation: Therapeutic on coumadin, cont metoprolol for rate control. (5) Chronic diastolic heart failure: Chronic combined systolic and diastolic CHF appears euvolemic on Torsemide 60 mg Twice daily per home regimen. (6) Chronic pain: Typically uses tramadol at home but has been allowed to use oxycodone this admission. Cont PRN, and monitor closely for excessive sleepiness in setting of NINA. (7) Diabetes type 2, uncontrolled: Uncontrolled, with A1C 7.6 and complications including neuropathy. Home insulin pump held on admission and glycemic pharmacist assisting with basal bolus insulin management while hospitalized. (8) Morbid obesity: Lifestyle modifications enforced for goal decreased percent body fat overall. (9) DVT prophylaxis: coumadin with therapeutic INR Full Code Dispo-to home when medically stable, pending Ortho plans for repeat debridement. Katharina Flores DO [facility] Hospitalist Admission and Anticipated Discharge Date Admission Date: July 12, 2020 Subjective 54 yo COVID positive man with diabetic foot infection. He denies pain He is upset because he has post nasal drip which according to him, is well managed with carbonated beverages. These were denied upon his request today for various reasons. Intermittent cough present No increased work of breathing but oxygen levels lower than 94% threshold overnight and this morning. Started steroid therapy after discussion with orthopedics. Discussed remdesivir therapy pros/cons with patient who agreed to proceed with therapy. Review of Systems Review of Systems: All systems reviewed & are unremarkable except as noted in Subjective Physical Exam Physical Exam: CONSTITUTIONAL: morbid obesity, vitals as above, generally well-appearing EYES: normal conjunctivae, no scleral icterus ENT: external ear and nose normal, MMM RESPIRATORY: clear to auscultation bilaterally, no crackles, rales or wheezes, normal respiratory effort CARDIOVASCULAR: regular rate and rhythm, S1 and 2 heard without murmurs, gallops or rubs, no JVD, no peripheral edema GASTROINTESTINAL: soft, nontender, nondistended, no guarding, protuberant, large pannus MUSCULOSKELETAL: sitting in bedside chair, generalized weakness, limited mobility 2/2 illness and body habitus, head is normocephalic and atraumatic SKIN: warm and dry, heel wound wrapped with dressing in place, no overt drainage or foul odor present. NEUROLOGIC: CN 2-12 grossly intact, normal cognition, no gross focal deficits. PSYCHIATRIC: alert cooperative and oriented to person, place and time. Results & Data Results & Data ([facility] [place]) Vital Signs (Past 12 Hours) Vital Signs Temp Pulse Pulse Pulse Resp BP Pulse Ox 07/20/20 19:45 36.7 C 80 15 108/66 97 07/20/20 16:00 90 07/20/20 15:40 36.8 C 85 20 113/70 94 07/20/20 12:04 37.5 C 97 H 22 123/72 91 Medications Administered Current Inpatient Medications Acetaminophen (Acetaminophen 325 Mg Tab) 650 mg PO Q4H PRN PRN Reason: Pain or Fever Stop: 08/11/20 20:04 Last Admin: 07/20/20 12:19 Dose: 650 mg Documented by: Al Hydrox/Mg Hydrox/Simethicone (Aluminum/Magnesium Susp 30 Ml Udc) 15 ml PO Q4H PRN PRN Reason: Dyspepsia Stop: 08/11/20 20:04 Aspirin (Aspirin 81 Mg Ectab) 81 mg PO DAILY MATT Stop: 08/12/20 08:59 Last Admin: 07/20/20 09:08 Dose: 81 mg Documented by: Atorvastatin Calcium (Atorvastatin 40 Mg Tab) 80 mg PO PM MATT Stop: 08/16/20 21:28 Last Admin: 07/20/20 20:16 Dose: 80 mg Documented by: Bisacodyl (Bisacodyl 5 Mg Tabec) 10 mg PO DAILY MATT Stop: 08/17/20 08:59 Last Admin: 07/20/20 09:13 Dose: Not Given Documented by: Clobetasol Propionate (Clobetasol Propionate 0.05% Oint 15 Gm Tube) 1 appln EXT BID MATT Stop: 08/11/20 20:59 Last Admin: 07/20/20 09:22 Dose: 1 appln Documented by: Collagenase (Collagenase Oint 30 Gm Tube) 1 appln TOP DAILY MATT Stop: 08/12/20 08:59 Last Admin: 07/20/20 09:09 Dose: 1 appln Documented by: Dextrose (Dextrose 50% 50 Ml Syringe) 25 - 50 ml IV UD PRN; Protocol PRN Reason: Hypoglycemia Protocol Stop: 08/11/20 20:04 Last Admin: 07/18/20 16:39 Dose: 50 ml Documented by: Fluticasone Propionate (Fluticasone Propionate Na Spr 16 Gm Btl) 2 sprays DAIN BID PRN PRN Reason: post nasal drip Stop: 08/11/20 20:59 Fluticasone/Vilanterol (Fluticasone/Vilanterol 200/25mcg 14 Puffs/Inhaler) 1 puffs INH DAILY MATT Stop: 08/11/20 20:59 Last Admin: 07/20/20 09:02 Dose: 1 puffs Documented by: Gabapentin (Gabapentin 300 Mg Cap) 300 mg PO TID MATT Stop: 08/11/20 20:59 Last Admin: 07/20/20 20:16 Dose: 300 mg Documented by: Glucagon (Glucagon For Inj 1 Mg Vial) 1 mg SQ UD PRN; Protocol PRN Reason: Hypoglycemia Protocol Stop: 08/11/20 20:04 Glucose (Glucose 10 Tabs/Tube) 4 - 8 tabs PO UD PRN; Protocol PRN Reason: Hypoglycemia Protocol Stop: 08/11/20 20:04 Glucose (Glucose 40% Gel 15 Gm Tube) 15 - 30 gm PO UD PRN; Protocol PRN Reason: Hypoglycemia Protocol Stop: 08/11/20 20:04 Guaifenesin (Guaifenesin 600 Mg Tabcr) 600 mg PO Q12 MATT Stop: 08/14/20 20:59 Last Admin: 07/20/20 20:16 Dose: 600 mg Documented by: Hydrocortisone (Hydrocortisone Acetate 25 Mg Supp) 25 mg WA BID PRN PRN Reason: Hemorrhoids Stop: 08/13/20 02:07 Last Admin: 07/18/20 09:16 Dose: 25 mg Documented by: Hyoscyamine (Hyoscyamine Sulfate 0.125 Mg Tab) 0.125 mg PO TID MATT Stop: 08/11/20 20:59 Last Admin: 07/20/20 20:15 Dose: 0.125 mg Documented by: Piperacillin Sod/Tazobactam (Sod 4.5 gm/ Dextrose) 120 mls @ 30 mls/hr IV Q8H MATT; Protocol Stop: 07/25/20 19:59 Last Infusion: 07/20/20 16:14 Dose: Infused Documented by: Dexamethasone 6 mg/ Syringe 1.5 mls @ 1 mls/min IV Q24H MATT Stop: 08/19/20 08:59 Last Admin: 07/20/20 09:12 Dose: 1 mls/min Documented by: Remdesivir 100 mg/ Sodium (Chloride) 250 mls @ 250 mls/hr IV Q24H MATT; Protocol Stop: 07/24/20 20:59 Insulin Aspart (Insulin Aspart 100 Units/Ml 3 Ml Pen) 0 units SC 1130,1630,2100 MATT; Protocol Stop: 08/11/20 20:59 Last Admin: 07/20/20 21:08 Dose: Not Given Documented by: Insulin Aspart (Insulin Aspart 100 Units/Ml 3 Ml Pen) 0 units SC 0730 MATT; Protocol Stop: 08/18/20 07:29 Last Admin: 07/20/20 09:15 Dose: 36 units Documented by: Insulin Glargine (Insulin Glargine Solostar 100 Units/Ml 3 Ml Pen) 35 units SQ BID [facility]; Protocol Stop: 08/18/20 09:14 Last Admin: 07/20/20 21:07 Dose: 35 units Documented by: Insulin Human NPH (Insulin Human Nph) 40 units SC DAILY [facility] Stop: 08/19/20 10:14 Last Admin: 07/20/20 12:08 Dose: 40 units Documented by: Ipratropium Benicia (Ipratropium [place]icia Neb Soln 0.02% 2.5 Ml Vial) 0.5 mg INH Q2H PRN PRN Reason: Shortness Of Breath Or Wheezing Stop: 08/14/20 19:29 Levalbuterol HCl (Levalbuterol 1.25mg/0.5ml Neb) 1.25 mg INH Q2H PRN PRN Reason: Shortness Of Breath Or Wheezing Stop: 08/14/20 19:29 Levothyroxine Sodium (Levothyroxine Sodium 100 Mcg Tablet) [facility] Stop: 08/12/20 06:29 Last Admin: 07/20/20 05:12 Dose: 100 mcg Documented by: Magnesium Hydroxide (Magnesium Hydroxide Susp 30 Ml Udc) 30 ml PO Q12H PRN PRN Reason: Constipation Stop: 08/11/20 20:04 Last Admin: 07/16/20 17:15 Dose: 30 ml Documented by: Magnesium Oxide (Magnesium Oxide 400 Mg Tab) 400 mg PO QAM [facility] Stop: 08/12/20 08:59 Last Admin: 07/20/20 09:05 Dose: 400 mg Documented by: Metoprolol Succinate (Metoprolol Succ 50mg Ext Rel Tab) 50 mg PO QPM [facility] Stop: 08/11/20 20:59 Last Admin: 07/20/20 20:18 Dose: 50 mg Documented by: Metoprolol Succinate (Metoprolol Succ 25mg Ext Rel Tab) 75 mg PO QAM [facility] Stop: 08/12/20 08:59 Last Admin: 07/20/20 09:13 Dose: 75 mg Documented by: Miscellaneous (Carbohydrates For Hypoglycemia ) 15 - 30 gm PO UD PRN PRN Reason: Hypoglycemia Protocol Stop: 08/11/20 20:04 Last Admin: 07/13/20 16:50 Dose: 15 gm Documented by: Miscellaneous Information (Pharmacy Glycemic Mgmt Consult) 1 ea N/A [facility] [place] Protocol Stop: 08/11/20 20:17 Miscellaneous Information (Piperacill/Tazobac Consult Active) 1 ea N/A UD PRN PRN Reason: Consult Stop: 08/17/20 13:53 Nitroglycerin (Nitroglycerin Sl 0.4 Mg/Tab Tab) 0.4 mg SL Q5M PRN PRN Reason: Chest Pain Stop: 08/11/20 20:04 Ondansetron HCl (Ondansetron Inj 2 Mg/Ml 2 Ml Vial) 4 mg IV Q6H PRN PRN Reason: Nausea Stop: 08/11/20 20:04 Oxycodone HCl (Oxycodone Hcl Ir 5 Mg Tab (Immediate Release)) 5 mg PO Q6H PRN PRN Reason: Pain Stop: 07/29/20 08:56 Last Admin: 07/20/20 05:12 Dose: 5 mg Documented by: Pantoprazole Sodium (Pantoprazole 40 Mg Tab) 40 mg PO QAM [facility] Stop: 08/12/20 08:59 Last Admin: 07/20/20 09:06 Dose: 40 mg Documented by: Polyethylene Glycol (Polyethylene (Miralax) 17 Gm Pack) 17 gm PO DAILY PRN PRN Reason: Constipation Stop: 08/11/20 20:04 Last Admin: 07/17/20 01:06 Dose: 17 gm Documented by: Potassium Chloride (Potassium Chloride Crtab 20 Meq Tabcr) 40 meq PO BID [facility] Stop: 08/17/20 09:14 Last Admin: 07/20/20 20:15 Dose: 40 meq Documented by: Sodium Chloride (Sodium Chloride 0.9% 10ml Flush) 30 ml IV Q24H [facility] Stop: 07/24/20 21:01 Torsemide (Torsemide 20 Mg Tab) 60 mg PO BID [facility] Stop: 08/11/20 20:59 Last Admin: 07/20/20 20:14 Dose: 60 mg Documented by: Warfarin Sodium (Warfarin Sod 2 Mg Tab) 2 mg PO DAILY@1600 [facility] Stop: 08/13/20 15:59 Last Admin: 07/20/20 15:36 Dose: 2 mg Documented by: Zolpidem Tartrate (Zolpidem Tartrate 5 Mg Tab) 5 mg PO HS PRN PRN Reason: Sleep Stop: 08/11/20 20:04 Last Admin: 07/20/20 01:15 Dose: 5 mg Documented by:
[2020-07-20] MEDS: SODIUM CHLORIDE 0.9% 10ML FLUSH IV SCH (22:15)
[2020-07-21] MEDS: PIPERACILLIN/TAZOBACTAM 4.5 GM in DEXTROSE 5% 100 ML IV SCH ×3 (04:15→21:18)
[2020-07-21] MEDS: oxyCODONE HCL IR 5 MG TAB (IMMEDIATE RELEASE) PO PRN ×2 (04:36→18:13)
[2020-07-21] MEDS: LEVOTHYROXINE SODIUM 100 MCG TABLET PO SCH (05:44)
[2020-07-21] MEDS: MAGNESIUM OXIDE 400 MG TAB PO SCH (08:25)
[2020-07-21] MEDS: PANTOprazole 40 MG TAB PO SCH (08:26)
[2020-07-21] MEDS: ASPIRIN 81 MG ECTAB PO SCH (08:26)
[2020-07-21] MEDS: METOPROLOL SUCC 25MG EXT REL TAB PO SCH (08:27)
[2020-07-21] MEDS: GABAPENTIN 300 MG CAP PO SCH ×3 (08:27→21:21)
[2020-07-21] MEDS: guaiFENesin 600 MG TABCR PO SCH ×2 (08:28→21:19)
[2020-07-21] MEDS: POTASSIUM CHLORIDE CRTAB 20 MEQ TABCR PO SCH ×2 (08:28→21:19)
[2020-07-21] MEDS: HYOSCYAMINE SULFATE 0.125 MG TAB PO SCH ×3 (08:28→21:19)
[2020-07-21] MEDS: FLUTICASONE/VILANTEROL 200/25MCG 14 PUFFS/INHALER INH SCH (08:29)
[2020-07-21] MEDS: dexAMETHasone 6 MG in SYRINGE 0 ML IV SCH (08:29)
[2020-07-21] MEDS: TORSEMIDE 20 MG TAB PO SCH ×2 (08:30→21:20)
[2020-07-21] MEDS: COLLAGENASE OINT 30 GM TUBE TOP SCH (08:31)
[2020-07-21] MEDS: INSULIN HUMAN NPH SC SCH (08:32)
[2020-07-21] MEDS: CLOBETASOL PROPIONATE 0.05% OINT 15 GM TUBE EXT SCH ×2 (08:33→21:36)
[2020-07-21] MEDS: INSULIN GLARGINE SOLOSTAR 100 UNITS/ML 3 ML PEN SQ SCH ×2 (08:33→21:25)
[2020-07-21] MEDS: INSULIN ASPART 100 UNITS/ML 3 ML PEN SC SCH ×4 (08:34→21:26)
[2020-07-21] MEDS: bisacodyL 5 MG TABEC PO SCH (08:42)
[2020-07-21] MEDS: ACETAMINOPHEN 325 MG TAB PO PRN (08:42)
--- NOTE | 2020-07-21 10:39 | Pharmacy Report ---
Pharmacy Glycemic Short Note 2 - Date of Service July 21, 2020 - Glycemic Short BSG Results (Last 24 hours): 07/20/20 07/20/20 07/20/20 11:41 16:35 20:10 POC Glucose 251 H 159 H 127 H 07/21/20 07:56 POC Glucose 161 H OUTPATIENT ANTIDIABETIC REGIMEN: * Toujeo/Humalog listed along with Novolog pump - clarified with patient. He is only on pump as follows: * 9.4 units/hr basal * CHO coverage at 1 unit for every ~1-3 g CHO consumed * Additional correction based on "trends" - patient tired on interview and not willing/able to discuss further * Jardiance * Trulicity * HbA1c 8.1% on 06/13/20 ASSESSMENT: 07/21: * Pt has received 183 units of insulin over the past 24hrs * 70 units of basal with Lantus * 40 units of NPH for steroid induced hyperglycemia * 73 units of bolus with NovoLog * BSGs [phone] mg/dl * Pt continues on dexamethasone 6mg IV daily. Post-prandial BSGs elevated secondary to steroids - will increase NPH dosing and continue to titrate based on BSG trends. * No changes needed to basal or prandial insulin 07/20: * Patient received a total of 121 units of insulin yesterday * 60 units basal + 61 units bolus * BSGs were well controlled yesterday: [phone] mg/dL * Fasting BSG was well controlled this AM at 126 mg/dL * Decided to increase Lantus back to 35 units daily given that patient was stable on this dose previously and fasting increased. Again, do not believe basal caused hypoglycemia on evening of 07/19 * No changes necessary to Novolog regimen * Patient was started on 6 mg of IV dexamethasone today * Will add 40 units of NPH to cover for steroid induced hyperglycemia * This is 0.35 units/kg based on adjusted body weight for elevated BMI * Following BSGs closely today given large amount of insulin and addition of dexamethasone. May need to loosen novolog or decrease lantus this evening. 07/19: * Patient received a total of 160 units of insulin yesterday * 65 units basal + 95 units bolus * BSGs were erratic: [phone] mg/dL * Patient did experience two episodes of hypoglycemia yesterday * He was symptomatic (blurry vision, clammy) with the severe hypoglycemia at dinner of 37 mg/dL. This resolved with an amp of D50. He was not sympt omatic with the low of 67 mg/dL at bedtime. * This is likely due to too aggressive Novolog parameters. Correction factor was loosened yesterday. Will loosen carb ratio today. * Patient received incorrect dose of Novolog with breakfast. Admin 23 units but should have been 36 units. * Fasting BSG was well controlled at 102 mg/dL this morning * Patient did receive 5 units less of Lantus last evening due to hypoglycemia. * Will reduce Lantus slightly today to ensure patient does not become hypoglycemic although I believe this is a bolus insulin issue and not related to basal insulin. PLAN FOR INPATIENT GLYCEMIC CONTROL: * Hold all outpatient diabetes medications * Basal insulin - increase NPH * Lantus 35 units SQ BID * NPH 50 units SQ daily - to be given with dexamethasone * Bolus insulin - no change * NovoLog per scale ACHS or Q6hrs while NPO * Goal Range: Low 110 mg/dL - High 140 mg/dL * Breakfast - Correction Factor: 15 mg/dL/unit; Nutritional / Prandial insulin per carb ratio of 1 unit per 2 grams CHO consumed * Lunch, Dinner, HS - Correction Factor: 20 mg/dL/unit; Nutritional / Prandial insulin per carb ratio of 1 unit per 3 grams CHO consumed PLAN FOR DISCHARGE: * Most recent HbA1c is 7.6% which is almost at goal and improving from previous HbA1c's. Continue outpatient regimen upon discharge.
--- NOTE | 2020-07-21 15:41 | Hospitalist Progress Note ---
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 On 06/15 he underwent I&D with wound debridement by Dr. Tiago Bates with subsequent placement of antibiotic beads. Since that time he was followed by wound care and reported compliance with doxycycline, however, he suffered a wound dehiscence. He came back to the ER from wound clinic with wound dehiscence and decompensation of area without sepsis. Wound culture revealed pseudomonas and Daptomycin was eventually stopped with continuation of Zosyn, Day 10 of 14. Wound care this admission evaluated him with new instructions for QOD dressing, ID consulted and recommending two weeks IV antibiotics. He continues on Zosyn at this time with improvement in surrounding LLE cellulitis of the leg. Orthopedics consulted and feels no urgency for repeat debridement at this time. MRI foot last month revealed no evidence of osteomyelitis. He has been having fevers and also has coinfection with novel coronavirus with evidence of pneumonia on CXR. Ortho with plans for re-evaluation over next couple of days. (2) Pneumonia due to COVID-19 virus: CXR with infiltrates although patient with minimal symptoms. Some fevers present durin initial part of admission, which seems to have resolved, uncertain if foot infection playing a role there, although he continued on broad spectrum antibiotics. He has a very high risk for progression of severe COVID disease from obesity and diabetes. Overnight oxygen levels fell below the 94% threshold and he was started on steroids and remdesivir therapy. Oxygen levels and fevers have improved since that time. Cont supportive care as needed. Monitor CRP intermittently (3) Cellulitis of left lower leg: Improved with antibiotic therapy as above. (4) Atrial fibrillation: Therapeutic on coumadin, cont metoprolol for rate control. (5) Chronic diastolic heart failure: Chronic combined systolic and diastolic CHF appears euvolemic on Torsemide 60 mg Twice daily per home regimen. (6) Chronic pain: Typically uses tramadol at home but has been allowed to use oxycodone this admission. Cont PRN, and monitor closely for excessive sleepiness in setting of NINA. (7) Diabetes type 2, uncontrolled: Uncontrolled, with A1C 7.6 and complications including neuropathy. Home insulin pump held on admission and glycemic pharmacist assisting with basal bolus insulin management while hospitalized. (8) Morbid obesity: Lifestyle modifications enforced for goal decreased percent body fat overall. (9) DVT prophylaxis: coumadin with therapeutic INR Full Code Dispo-to home when medically stable, pending Ortho plans for repeat debridement. [facility] Admission and Anticipated Discharge Date Admission Date: July 12, 2020 Subjective 54 yo COVID positive man with diabetic foot infection. Reports some pain in his left foot today Wounds were unwrapped in order to be examined. He is not reporting significant respiratory symptoms today and is oxygenating w ell on room air today. Reports having had skin breakout on his hands today in response to the hospital soap. Pt states that he has alot of allergies and that he is very reactive to things like this in the past. Review of Systems Review of Systems: All systems reviewed & are unremarkable except as noted in Subjective Physical Exam Physical Exam: CONSTITUTIONAL: morbid obesity, vitals as above, generally well-appearing EYES: normal conjunctivae, no scleral icterus ENT: external ear and nose normal, MMM RESPIRATORY: clear to auscultation bilaterally, no crackles, rales or wheezes, normal respiratory effort CARDIOVASCULAR: regular rate and rhythm, S1 and 2 heard without murmurs, gallops or rubs, no JVD, no peripheral edema GASTROINTESTINAL: soft, nontender, nondistended, no guarding, protuberant, large pannus MUSCULOSKELETAL: sitting in bedside chair, generalized weakness, limited mobility 2/2 illness and body habitus, head is normocephalic and atraumatic SKIN: warm and dry, heel wound examined-unstageable open wound with cavity present. Residual sutures present from surgery one month ago. No drainage. Would appears dry with several layers of skin around a central opening. No surrounding erythema but there is a lot of sloughing cracked skin with a woody appearance on foot and lower leg. Medial left calf area with some weeping of the ulcerative wound. This dressing was also changed. NEUROLOGIC: CN 2-12 grossly intact, normal cognition, no gross focal deficits. PSYCHIATRIC: alert cooperative and oriented to person, place and time. Results & Data Results & Data ([facility]) Vital Signs (Past 12 Hours) Vital Signs Temp Pulse Pulse Pulse Resp BP Pulse Ox 07/21/20 11:38 36.6 C 83 20 114/72 94 07/21/20 08:00 88 07/21/20 07:57 36.7 C 90 18 111/69 94 07/21/20 04:37 36.9 C 83 16 100/64 94 07/21/20 03:49 76 12 95 Medications Administered Current Inpatient Medications Acetaminophen (Acetaminophen 325 Mg Tab) 650 mg PO Q4H PRN PRN Reason: Pain or Fever Stop: 08/11/20 20:04 Last Admin: 07/21/20 08:42 Dose: 650 mg Documented by: Al Hydrox/Mg Hydrox/Simethicone (Aluminum/Magnesium Susp 30 Ml Udc) 15 ml PO Q4H PRN PRN Reason: Dyspepsia Stop: 08/11/20 20:04 Aspirin (Aspirin 81 Mg Ectab) 81 mg PO DAILY [facility] Stop: 08/12/20 08:59 Last Admin: 07/21/20 08:26 Dose: 81 mg Documented by: Atorvastatin Calcium (Atorvastatin 40 Mg Tab) 80 mg PO PM MATT Stop: 08/16/20 21:28 Last Admin: 07/20/20 20:16 Dose: 80 mg Documented by: Bisacodyl (Bisacodyl 5 Mg Tabec) 10 mg PO DAILY [facility] Stop: 08/17/20 08:59 Last Admin: 07/21/20 08:42 Dose: 10 mg Documented by: Clobetasol Propionate (Clobetasol Propionate 0.05% Oint 15 Gm Tube) 1 appln EXT BID [facility] Stop: 08/11/20 20:59 Last Admin: 07/21/20 08:33 Dose: 1 appln Documented by: Collagenase (Collagenase Oint 30 Gm Tube) 1 appln TOP DAILY [facility]ATT Stop: 08/12/20 08:59 Last Admin: 07/21/20 08:31 Dose: 1 appln Documented by: Dextrose (Dextrose 50% 50 Ml Syringe) 25 - 50 ml IV UD PRN; Protocol PRN Reason: Hypoglycemia Protocol Stop: 08/11/20 20:04 Last Admin: 07/18/20 16:39 Dose: 50 ml Documented by: Fluticasone Propionate (Fluticasone Propionate Na Spr 16 Gm Btl) 2 sprays DAIN BID PRN PRN Reason: post nasal drip Stop: 08/11/20 20:59 Fluticasone/Vilanterol (Fluticasone/Vilanterol 200/25mcg 14 Puffs/Inhaler) 1 puffs INH DAILY [facility]ATT Stop: 08/11/20 20:59 Last Admin: 07/21/20 08:29 Dose: 1 puffs Documented by: Gabapentin (Gabapentin 300 Mg Cap) 300 mg PO TID MATT Stop: 08/11/20 20:59 Last Admin: 07/21/20 14:23 Dose: 300 mg Documented by: Glucagon (Glucagon For Inj 1 Mg Vial) 1 mg SQ UD PRN; Protocol PRN Reason: Hypoglycemia Protocol Stop: 08/11/20 20:04 Glucose (Glucose 10 Tabs/Tube) 4 - 8 tabs PO UD PRN; Protocol PRN Reason: Hypoglycemia Protocol Stop: 08/11/20 20:04 Glucose (Glucose 40% Gel 15 Gm Tube) 15 - 30 gm PO UD PRN; Protocol PRN Reason: Hypoglycemia Protocol Stop: 08/11/20 20:04 Guaifenesin (Guaifenesin 600 Mg Tabcr) 600 mg PO Q12 [facility] Stop: 08/14/20 20:59 Last Admin: 07/21/20 08:28 Dose: 600 mg Documented by: Hydrocortisone (Hydrocortisone Acetate 25 Mg Supp) 25 mg WA BID PRN PRN Reason: Hemorrhoids Stop: 08/13/20 02:07 Last Admin: 07/18/20 09:16 Dose: 25 mg Documented by: Hyoscyamine (Hyoscyamine Sulfate 0.125 Mg Tab) 0.125 mg PO TID MATT Stop: 08/11/20 20:59 Last Admin: 07/21/20 14:23 Dose: 0.125 mg Documented by: Piperacillin Sod/Tazobactam (Sod 4.5 gm/ Dextrose) 120 mls @ 30 mls/hr IV Q8H [facility]; Protocol Stop: 07/25/20 19:59 Last Admin: 07/21/20 11:52 Dose: 30 mls/hr Documented by: Dexamethasone 6 mg/ Syringe 1.5 mls @ 1 mls/min IV Q24H [facility] Stop: 08/19/20 08:59 Last Admin: 07/21/20 08:29 Dose: 1 mls/min Documented by: Remdesivir 100 mg/ Sodium (Chloride) 250 mls @ 250 mls/hr IV Q24H [facility]; Protocol Stop: 07/24/20 20:59 Insulin Aspart (Insulin Aspart 100 Units/Ml 3 Ml Pen) 0 units SC 1130,1630,2100 [facility]; Protocol Stop: 08/11/20 20:59 Last Admin: 07/21/20 12:19 Dose: 28 units Documented by: Insulin Aspart (Insulin Aspart 100 Units/Ml 3 Ml Pen) 0 units SC 0730 [facility]; Protocol Stop: 08/18/20 07:29 Last Admin: 07/21/20 08:34 Dose: 38 units Documented by: Insulin Glargine (Insulin Glargine Solostar 100 Units/Ml 3 Ml Pen) 35 units SQ BID [facility]; Protocol Stop: 08/18/20 09:14 Last Admin: 07/21/20 08:33 Dose: 35 units Documented by: Insulin Human NPH (Insulin Human Nph) 50 units SC DAILY [facility] Stop: 08/20/20 08:59 Last Admin: 07/21/20 08:32 Dose: 50 units Documented by: Ipratropium Hastings (Ipratropium [place] Neb Soln 0.02% 2.5 Ml Vial) 0.5 mg INH Q2H PRN PRN Reason: Shortness Of Breath Or Wheezing Stop: 08/14/20 19:29 Last Admin: 07/21/20 03:46 Dose: 0.5 mg Documented by: Levalbuterol HCl (Levalbuterol 1.25mg/0.5ml Neb) 1.25 mg INH Q2H PRN PRN Reason: Shortness Of Breath Or Wheezing Stop: 08/14/20 19:29 Last Admin: 07/21/20 03:46 Dose: 1.25 mg Documented by: Levothyroxine Sodium (Levothyroxine Sodium 100 Mcg Tablet) 100 mcg PO DAILYBB [facility] Stop: 08/12/20 06:29 Last Admin: 07/21/20 05:44 Dose: 100 mcg Documented by: Magnesium Hydroxide (Magnesium Hydroxide Susp 30 Ml Udc) 30 ml PO Q12H PRN PRN Reason: Constipation Stop: 08/11/20 20:04 Last Admin: 07/16/20 17:15 Dose: 30 ml Documented by: Magnesium Oxide (Magnesium Oxide 400 Mg Tab) 400 mg PO QAM [facility] Stop: 08/12/20 08:59 Last Admin: 07/21/20 08:25 Dose: 400 mg Documented by: Metoprolol Succinate (Metoprolol Succ 50mg Ext Rel Tab) 50 mg PO QPM [facility] Stop: 08/11/20 20:59 Last Admin: 07/20/20 20:18 Dose: 50 mg Documented by: Metoprolol Succinate (Metoprolol Succ 25mg Ext Rel Tab) 75 mg PO QAM [facility] Stop: 08/12/20 08:59 Last Admin: 07/21/20 08:27 Dose: 75 mg Documented by: Miscellaneous (Carbohydrates For Hypoglycemia ) 15 - 30 gm PO UD PRN PRN Reason: Hypoglycemia Protocol Stop: 08/11/20 20:04 Last Admin: 07/13/20 16:50 Dose: 15 gm Documented by: Miscellaneous Information (Pharmacy Glycemic Mgmt Consult) 1 ea N/A UD MATT; Protocol Stop: 08/11/20 20:17 Miscellaneous Information (Piperacill/Tazobac Consult Active) 1 ea N/A UD PRN PRN Reason: Consult Stop: 08/17/20 13:53 Nitroglycerin (Nitroglycerin Sl 0.4 Mg/Tab Tab) 0.4 mg SL Q5M PRN PRN Reason: Chest Pain Stop: 08/11/20 20:04 Ondansetron HCl (Ondansetron Inj 2 Mg/Ml 2 Ml Vial) 4 mg IV Q6H PRN PRN Reason: Nausea Stop: 08/11/20 20:04 Oxycodone HCl (Oxycodone Hcl Ir 5 Mg Tab (Immediate Release)) 5 mg PO Q6H PRN PRN Reason: Pain Stop: 07/29/20 08:56 Last Admin: 07/21/20 04:36 Dose: 5 mg Documented by: Pantoprazole Sodium (Pantoprazole 40 Mg Tab) 40 mg PO QAM [facility] Stop: 08/12/20 08:59 Last Admin: 07/21/20 08:26 Dose: 40 mg Documented by: Polyethylene Glycol (Polyethylene (Miralax) 17 Gm Pack) 17 gm PO DAILY PRN PRN Reason: Constipation Stop: 08/11/20 20:04 Last Admin: 07/17/20 01:06 Dose: 17 gm Documented by: Potassium Chloride (Potassium Chloride Crtab 20 Meq Tabcr) 40 meq PO BID [facility] Stop: 08/17/20 09:14 Last Admin: 07/21/20 08:28 Dose: 40 meq Documented by: Sodium Chloride (Sodium Chloride 0.9% 10ml Flush) 30 ml IV Q24H [facility] Stop: 07/24/20 21:01 Last Admin: 07/20/20 22:15 Dose: 30 ml Documented by: Torsemide (Torsemide 20 Mg Tab) 60 mg PO BID [facility] Stop: 08/11/20 20:59 Last Admin: 07/21/20 08:30 Dose: 60 mg Documented by: Warfarin Sodium (Warfarin Sod 2 Mg Tab) 2 mg PO DAILY@1600 [facility] Stop: 08/13/20 15:59 Last Admin: 07/20/20 15:36 Dose: 2 mg Documented by: Zolpidem Tartrate (Zolpidem Tartrate 5 Mg Tab) 5 mg PO HS PRN PRN Reason: Sleep Stop: 08/11/20 20:04 Last Admin: 07/20/20 01:15 Dose: 5 mg Documented by:
[2020-07-21] MEDS: WARFARIN SOD 2 MG TAB PO SCH (16:17)
[2020-07-21] MEDS: REMDESIVIR 100 MG in SODIUM CHLORIDE 0.9% 230 ML IV SCH (19:40)
[2020-07-21] MEDS: ATORVASTATIN 40 MG TAB PO SCH (21:21)
[2020-07-21] MEDS: METOPROLOL SUCC 50MG EXT REL TAB PO SCH (21:21)
[2020-07-21] MEDS: SODIUM CHLORIDE 0.9% 10ML FLUSH IV SCH (21:24)
[2020-07-21] MEDS ORDERED: POTASSIUM CHLORIDE CRTAB 20 MEQ TABCR PO STA (21:27)
--- NOTE | 2020-07-21 21:49 | Communication Note ---
Date of Service: July 21, 2020 Notified by RN of NSVT episodes. Patient asymptomatic as per RN except for foot pain. AP NSVT Continue home beta-noy Replace electrolytes Keep patient in a PCU for now (Hold [facility] transfer.)
[2020-07-21] MEDS ORDERED: MAGNESIUM SULFATE / D5W 1 GM/100 ML BAG IV ONE (22:00)
[2020-07-21 22:16] LABS: BUN Creatinine Ratio 20.7 (10-20); Calcium 8.4 mg/dl (8.5-10.1); Creatinine Clr Calc Pharmacy 90.9 ml/min; Est GFR (African American) 60.4; Est GFR (Non-African American) 52.1; Magnesium 2.1 mg/dl (1.8-2.4); Potassium 3.4 mmol/L (3.5-5.1)
[2020-07-22] MEDS: oxyCODONE HCL IR 5 MG TAB (IMMEDIATE RELEASE) PO PRN ×2 (00:22→11:33)
[2020-07-22] MEDS: PIPERACILLIN/TAZOBACTAM 4.5 GM in DEXTROSE 5% 100 ML IV SCH ×3 (04:04→19:53)
[2020-07-22] MEDS ORDERED: METOPROLOL SUCC 25MG EXT REL TAB PO SCH (05:30)
[2020-07-22] MEDS: POTASSIUM CHLORIDE CRTAB 20 MEQ TABCR PO SCH ×2 (06:05→20:02)
[2020-07-22] MEDS: LEVOTHYROXINE SODIUM 100 MCG TABLET PO SCH (06:06)
[2020-07-22 06:13] LABS: Hematocrit (blood only) 36.8 % (42-52); Mean Corpuscular Hemoglobin 27.3 pg (25-34); Mean Corpuscular Hgb Conc 32.6 g/dL (32-36); Mean Corpuscular Volume 83.8 fL (80-100); Mean Platelet Volume 9.6 fL (7.4-10.4); Platelet Count 370 K/uL (130-400); RDW Coefficient of Variation 17.3 % (11.5-14.5); RDW Standard Deviation 53.7 fL (36.4-46.3); Red Blood Count 4.39 M/uL (4.7-6.1); White Blood Count 3.87 K/uL (4.8-10.8)
[2020-07-22 06:47] LABS: BUN Creatinine Ratio 24.3 (10-20); Calcium 8.3 mg/dl (8.5-10.1); Creatinine Clr Calc Pharmacy 97.6 ml/min; Est GFR (African American) 66.4; Est GFR (Non-African American) 57.2; Magnesium 2.1 mg/dl (1.8-2.4); Potassium 3.7 mmol/L (3.5-5.1)
[2020-07-22 06:48] LABS: C Reactive Protein 3.89 mg/dl (0-0.29)
[2020-07-22 07:09] LABS: Thyroid Stimulating Hormone 0.287 uIu/ml (0.300-4.500)
[2020-07-22] MEDS: PANTOprazole 40 MG TAB PO SCH (08:51)
[2020-07-22] MEDS: GABAPENTIN 300 MG CAP PO SCH ×3 (08:51→20:04)
[2020-07-22] MEDS: COLLAGENASE OINT 30 GM TUBE TOP SCH (08:52)
[2020-07-22] MEDS: dexAMETHasone 6 MG in SYRINGE 0 ML IV SCH (08:52)
[2020-07-22] MEDS: guaiFENesin 600 MG TABCR PO SCH ×2 (08:53→20:06)
[2020-07-22] MEDS: MAGNESIUM OXIDE 400 MG TAB PO SCH (08:53)
[2020-07-22] MEDS: ASPIRIN 81 MG ECTAB PO SCH (08:53)
[2020-07-22] MEDS: TORSEMIDE 20 MG TAB PO SCH ×2 (08:54→20:05)
[2020-07-22] MEDS: HYOSCYAMINE SULFATE 0.125 MG TAB PO SCH ×3 (08:54→20:03)
[2020-07-22] MEDS: bisacodyL 5 MG TABEC PO SCH (08:56)
[2020-07-22] MEDS: CLOBETASOL PROPIONATE 0.05% OINT 15 GM TUBE EXT SCH ×2 (08:57→20:12)
[2020-07-22] MEDS: INSULIN GLARGINE SOLOSTAR 100 UNITS/ML 3 ML PEN SQ SCH ×2 (08:58→21:04)
[2020-07-22] MEDS: FLUTICASONE/VILANTEROL 200/25MCG 14 PUFFS/INHALER INH SCH (08:58)
[2020-07-22] MEDS: INSULIN ASPART 100 UNITS/ML 3 ML PEN SC SCH ×4 (09:00→21:05)
[2020-07-22] MEDS: INSULIN HUMAN NPH SC SCH (09:00)
--- NOTE | 2020-07-22 10:31 | Pharmacy Report ---
Pharmacy Glycemic Short Note 2 - Date of Service July 22, 2020 - Glycemic Short BSG Results (Last 24 hours): 07/21/20 07/21/20 07/21/20 11:38 16:33 21:00 Glucose POC Glucose 248 H 168 H 147 H 07/21/20 07/22/20 07/22/20 21:33 05:53 08:02 Glucose 131 H 96 POC Glucose 116 H OUTPATIENT ANTIDIABETIC REGIMEN: * Toujeo/Humalog listed along with Novolog pump - clarified with patient. He is only on pump as follows: * 9.4 units/hr basal * CHO coverage at 1 unit for every ~1-3 g CHO consumed * Additional correction based on "trends" - patient tired on interview and not willing/able to discuss further * Jardiance * Trulicity * HbA1c 8.1% on 06/13/20 ASSESSMENT: 07/22: * Pt has received 215 units of insulin over the past 24hrs * 70 units of basal with Lantus * 50 units of NPH for steroid induced hyperglycemia * 95 units of bolus with NovoLog * BSGs [phone] mg/dl * AM fasting continues to trend downwards. Will decrease basal insulin * Dexamethasone continues at 6mg IV daily - continue NPH 50 units daily with DXM (will dc NPH when DXM dc) * All post-prandial BSGs in range other than pre-lunch. Breakfast CHO ratio is already tighter than the rest of the day. Will wait to further adjust since pt may have more basal insulin on board than needed. 07/21: * Pt has received 183 units of insulin over the past 24hrs * 70 units of basal with Lantus * 40 units of NPH for steroid induced hyperglycemia * 73 units of bolus with NovoLog * BSGs [phone] mg/dl * Pt continues on dexamethasone 6mg IV daily. Post-prandial BSGs elevated secondary to steroids - will increase NPH dosing and continue to titrate based on BSG trends. * No changes needed to basal or prandial insulin 07/20: * Patient received a total of 121 units of insulin yesterday * 60 units basal + 61 units bolus * BSGs were well controlled yesterday: [phone] mg/dL * Fasting BSG was well controlled this AM at 126 mg/dL * Decided to increase Lantus back to 35 units daily given that patient was stable on this dose previously and fasting increased. Again, do not believe basal caused hypoglycemia on evening of 07/19 * No changes necessary to Novolog regimen * Patient was started on 6 mg of IV dexamethasone today * Will add 40 units of NPH to cover for steroid induced hyperglycemia * This is 0.35 units/kg based on adjusted body weight for elevated BMI * Following BSGs closely today given large amount of insulin and addition of dexamethasone. May need to loosen novolog or decrease lantus this evening. 07/19: * Patient received a total of 160 units of insulin yesterday * 65 units basal + 95 units bolus * BSGs were erratic: [phone] mg/dL * Patient did experience two episodes of hypoglycemia yesterday * He was symptomatic (blurry vision, clammy) with the severe hypoglycemia at dinner of 37 mg/dL. This resolved with an amp of D50. He was not symptomatic with the low of 67 mg/dL at bedtime. * This is likely due to too aggressive Novolog parameters. Correction factor was loosened yesterday. Will loosen carb ratio today. * Patient received incorrect dose of Novolog with breakfast. Admin 23 units but should have been 36 units. * Fasting BSG was well controlled at 102 mg/dL this morning * Patient did receive 5 units less of Lantus last evening due to hypoglycemia. * Will reduce Lantus slightly today to ensure patient does not become hypoglycemic although I believe this is a bolus insulin issue and not related to basal insulin. PLAN FOR INPATIENT GLYCEMIC CONTROL: * Hold all outpatient diabetes medications * Basal insulin - decrease Lantus * Lantus 30 units SQ BID * NPH 50 units SQ daily - to be given with dexamethasone * Bolus insulin - no change * NovoLog per scale ACHS or Q6hrs while NPO * Goal Range: Low 110 mg/dL - High 140 mg/dL * Breakfast - Correction Factor: 15 mg/dL/unit; Nutritional / Prandial insulin per carb ratio of 1 unit per 2 grams CHO consumed * Lunch, Dinner, HS - Correction Factor: 20 mg/dL/unit; Nutritional / Prandial insulin per carb ratio of 1 unit per 3 grams CHO consumed PLAN FOR DISCHARGE: * Most recent HbA1c is 7.6% which is almost at goal and improving from previous HbA1c's. Continue outpatient regimen upon discharge.
--- NOTE | 2020-07-22 10:37 | Hospitalist Progress Note ---
Date of Service July 22, 2020 Assessment & Plan (1) Pneumonia due to COVID-19 virus: CXR with infiltrates and worsening symptoms. Worsening pneumonia on CXR. Cont torsemide for now but consider converting or adding intravenous diuretics if he begins to desaturate. Also consider proning patient anytime he is amenable to this. (2) Sustained ventricular tachycardia: History of ablation status post ICD in October 2023 multiple episodes of sustained tachycardia last year. Has a history of amiodarone therapy which was stopped at the time of ICD placement. Cardiology was consulted for a return of sustained ventricular tachycardia. The patient reports noncompliance with his BiPAP as he has not been able to get any sleep here per his report. He was encouraged to remain compliant as much as possible. We will continue to keep potassium greater than 4 and magnesium greater than 2 and check a daily BMP for this. Cardiology is consulted and will monitor his progress and consider amiodarone therapy if needed. (3) Diabetic ulcer of left foot associated with type 2 diabetes mellitus, with fat layer exposed: He was recently admitted with prolonged hospital stay secondary to a left lateral diabetic neuropathic foot ulcer with deep abscess of the foot. On 06/15 he underwent I&D with wound debridement by Dr. Tiago Bates with subsequent placement of antibiotic beads. Since that time he was followed by wound care and reported compliance with doxycycline, however, he suffered a wound dehiscence. He came back to the ER from wound clinic with wound dehiscence and decompensation of area without sepsis. Wound culture revealed pseudomonas and Daptomycin was eventually stopped with continuation of Zosyn, Day 11 of 14. Wound care this admission evaluated him with new instructions for QOD dressing, ID consulted and recommending two weeks IV antibiotics. He continues on Zosyn at this time with improvement in surrounding LLE cellulitis of the leg. Orthopedics consulted and feels no urgency for repeat debridement at this time. MRI foot last month revealed no evidence of osteomyelitis. He has been having fevers and also has coinfection with novel coronavirus with evidence of pneumonia on CXR. Ortho with plans for re-evaluation over next couple of days. (4) Cellulitis of left lower leg: Improved with antibiotic therapy as above. (5) Atrial fibrillation: Therapeutic on coumadin, cont metoprolol for rate control. (6) Chronic diastolic heart failure: Chronic combined systolic and diastolic CHF appears euvolemic on Torsemide 60 mg Twice daily per home regimen. (7) Chronic pain: Typically uses tramadol at home but has been allowed to use oxycodone this admission. Cont PRN, and monitor closely for excessive sleepiness in setting of NINA. (8) Diabetes type 2, uncontrolled: Uncontrolled, with A1C 7.6 and complications including neuropathy. Home insulin pump held on admission and glycemic pharmacist assisting with basal bolus insulin management while hospitalized. (9) Morbid obesity: Lifestyle modifications enforced for goal decreased percent body fat overall. (10) S/P ICD (internal cardiac defibrillator) procedure: (11) DVT prophylaxis: coumadin with therapeutic INR Full Code Dispo-to home when medically stable, pending Ortho plans for repeat debridement. Katharina Flores DO [facility] [place] and [place]ticip[place] Discharge Date Admission Date: July 12, 2020 Subjective 54 yo COVID positive man with diabetic foot infection. Sustained vtach on telemetry overnight h/o ronaldo vtach with significant cardiac history including multiple hospitalizations in early 2019 for amiodarone and lidocaine infusions ultimately leading to vtach ablation Oct 2019 s/p ICD implantation. He has known ischemic cardiomyopathy with chronic systolic heart failure and from what can be determined, has been euvolemic this admission. Body habitus makes assessing this somewhat difficult. Last echo was limited in May 2020 but revealed a grossly normal EF Mar 2020 PM interrogation revealed PAF and he was put on coumadin, which is his current underlying rhythm He maintains goal INR 2-3. He consistently denies chest pain He notably has been off his BIPAP for the past 9 days in the hospital which may be contributing. This will be restarted. K 3.7 and Mg 2.1 today. Discussed case with air traffic controller center promotional advertising assistant. Review of Systems Review of Systems: All systems reviewed & are unremarkable except as noted in Subjective Pain in left foot feels better today, cough is somewhat worse today but still nonproductive. Physical Exam Physical Exam: CONSTITUTIONAL: morbid obesity, vitals as above, generally well-appearing EYES: normal conjunctivae, no scleral icterus ENT: external ear and nose normal, MMM RESPIRATORY: clear to auscultation bilaterally, no crackles, rales or wheezes, normal respiratory effort CARDIOVASCULAR: regular rate and rhythm, S1 and 2 heard without murmurs, gallops or rubs, no JVD, no peripheral edema GASTROINTESTINAL: soft, nontender, nondistended, no guarding, protuberant, large pannus MUSCULOSKELETAL: sitting in bedside chair, generalized weakness, limited mobility 2/2 illness and body habitus, head is normocephalic and atraumatic SKIN: warm and dry, dry dressing intact covering both wounds, no drainage present. NEUROLOGIC: CN 2-12 grossly intact, normal cognition, no gross focal deficits. PSYCHIATRIC: alert cooperative and oriented to person, place and time. Results & Data Results & Data ([facility]) Vital Signs (Past 12 Hours) Vital Signs Temp Pulse Pulse Resp BP BP Pulse Ox 07/22/20 08:48 84 07/22/20 07:41 36.6 C 84 19 109/71 96 07/22/20 05:06 36.5 C 87 18 114/72 94 07/21/20 22:55 36.6 C 85 20 143/76 H 97 Laboratory Results Short CBC 07/22/20 Range/Units 05:53 WBC 3.87 L (4.8-10.8) K/uL Hgb 12.0 L (14.0-18.0) g/dL Hct 36.8 L (42-52) % Plt Count 370 (130-400) K/uL BMP 07/21/20 07/22/20 21:33 05:53 Sodium 136 138 Potassium 3.4 L 3.7 Chloride 102 103 Carbon Dioxide 29 31 BUN 31 H 33 H Creatinine 1.48 H 1.37 Glucose 131 H 96 Calcium 8.4 L 8.3 L Liver Function 07/22/20 Range/Units 05:53 AST 78 H (15-37) U/L ALT 34 (12-78) U/L Medications Administered Current Inpatient Medications Acetaminophen (Acetaminophen 325 Mg Tab) 650 mg PO Q4H PRN PRN Reason: Pain or Fever Stop: 08/11/20 20:04 Last Admin: 07/21/20 08:42 Dose: 650 mg Documented by: Al Hydrox/Mg Hydrox/Simethicone (Aluminum/Magnesium Susp 30 Ml Udc) 15 ml PO Q4H PRN PRN Reason: Dyspepsia Stop: 08/11/20 20:04 Aspirin (Aspirin 81 Mg Ectab) 81 mg PO DAILY [facility] Stop: 08/12/20 08:59 Last Admin: 07/22/20 08:53 Dose: 81 mg Documented by: Atorvastatin Calcium (Atorvastatin 40 Mg Tab) 80 mg PO PM MATT Stop: 08/16/20 21:28 Last Admin: 07/21/20 21:21 Dose: 80 mg Documented by: Bisacodyl (Bisacodyl 5 Mg Tabec) 10 mg PO DAILY MATT Stop: 08/17/20 08:59 Last Admin: 07/22/20 08:56 Dose: Not Given Documented by: Clobetasol Propionate (Clobetasol Propionate 0.05% Oint 15 Gm Tube) 1 appln EXT BID MATT Stop: 08/11/20 20:59 Last Admin: 07/22/20 08:57 Dose: 1 appln Documented by: Collagenase (Collagenase Oint 30 Gm Tube) 1 appln TOP DAILY MATT Stop: 08/12/20 08:59 Last Admin: 07/22/20 08:52 Dose: 1 appln Documented by: Dextrose (Dextrose 50% 50 Ml Syringe) 25 - 50 ml IV UD PRN; Protocol PRN Reason: Hypoglycemia Protocol Stop: 08/11/20 20:04 Last Admin: 07/18/20 16:39 Dose: 50 ml Documented by: Fluticasone Propionate (Fluticasone Propionate Na Spr 16 Gm Btl) 2 sprays DAIN BID PRN PRN Reason: post nasal drip Stop: 08/11/20 20:59 Fluticasone/Vilanterol (Fluticasone/Vilanterol 200/25mcg 14 Puffs/Inhaler) 1 puffs INH DAILY MATT Stop: 08/11/20 20:59 Last Admin: 07/22/20 08:58 Dose: 1 puffs Documented by: Gabapentin (Gabapentin 300 Mg Cap) 300 mg PO TID MATT Stop: 08/11/20 20:59 Last Admin: 07/22/20 08:51 Dose: 300 mg Documented by: Glucagon (Glucagon For Inj 1 Mg Vial) 1 mg SQ UD PRN; Protocol PRN Reason: Hypoglycemia Protocol Stop: 08/11/20 20:04 Glucose (Glucose 10 Tabs/Tube) 4 - 8 tabs PO UD PRN; Protocol PRN Reason: Hypoglycemia Protocol Stop: 08/11/20 20:04 Glucose (Glucose 40% Gel 15 Gm Tube) 15 - 30 gm PO UD PRN; Protocol PRN Reason: Hypoglycemia Protocol Stop: 08/11/20 20:04 Guaifenesin (Guaifenesin 600 Mg Tabcr) 600 mg PO Q12 [facility] Stop: 08/14/20 20:59 Last Admin: 07/22/20 08:53 Dose: 600 mg Documented by: Hydrocortisone (Hydrocortisone Acetate 25 Mg Supp) 25 mg MD BID PRN PRN Reason: Hemorrhoids Stop: 08/13/20 02:07 Last Admin: 07/18/20 09:16 Dose: 25 mg Documented by: Hyoscyamine (Hyoscyamine Sulfate 0.125 Mg Tab) 0.125 mg PO TID [facility] Stop: 08/11/20 20:59 Last Admin: 07/22/20 08:54 Dose: 0.125 mg Documented by: Piperacillin Sod/Tazobactam (Sod 4.5 gm/ Dextrose) 120 mls @ 30 mls/hr IV Q8H [facility]; Protocol Stop: 07/25/20 19:59 Last Infusion: 07/22/20 08:20 Dose: Infused Documented by: Dexamethasone 6 mg/ Syringe 1.5 mls @ 1 mls/min IV Q24H [facility] Stop: 08/19/20 08:59 Last Admin: 07/22/20 08:52 Dose: 1 mls/min Documented by: Remdesivir 100 mg/ Sodium (Chloride) 250 mls @ 250 mls/hr IV Q24H [facility]; Protocol Stop: 07/24/20 20:59 Last Infusion: 07/21/20 21:17 Dose: Infused Documented by: Insulin Aspart (Insulin Aspart 100 Units/Ml 3 Ml Pen) 0 units SC 1130,1630,2100 [facility]; Protocol Stop: 08/11/20 20:59 Last Admin: 07/21/20 21:26 Dose: 5 units Documented by: Insulin Aspart (Insulin Aspart 100 Units/Ml 3 Ml Pen) 0 units SC 0730 [facility]; Protocol Stop: 08/18/20 07:29 Last Admin: 07/22/20 09:00 Dose: 36 units Documented by: Insulin Glargine (Insulin Glargine Solostar 100 Units/Ml 3 Ml Pen) 30 units SQ BID [facility]; Protocol Stop: 08/21/20 08:59 Last Admin: 07/22/20 08:58 Dose: 30 units Documented by: Insulin Human NPH (Insulin Human Nph) 50 units SC DAILY [facility] Stop: 08/20/20 08:59 Last Admin: 07/22/20 09:00 Dose: 50 units Documented by: Ipratropium Donnellson (Ipratropium Donnellson Neb Soln 0.02% 2.5 Ml Vial) 0.5 mg INH Q2H PRN PRN Reason: Shortness Of Breath Or Wheezing Stop: 08/14/20 19:29 Last Admin: 07/21/20 03:46 Dose: 0.5 mg Documented by: Levalbuterol HCl (Levalbuterol 1.25mg/0.5ml Neb) 1.25 mg INH Q2H PRN PRN Reason: Shortness Of Breath Or Wheezing Stop: 08/14/20 19:29 Last Admin: 07/21/20 03:46 Dose: 1.25 mg Documented by: Levothyroxine Sodium (Levothyroxine Sodium 100 Mcg Tablet) 100 mcg PO DAILYBB [facility] Stop: 08/12/20 06:29 Last Admin: 07/22/20 06:06 Dose: 100 mcg Documented by: Magnesium Hydroxide (Magnesium Hydroxide Susp 30 Ml Udc) 30 ml PO Q12H PRN PRN Reason: Constipation Stop: 08/11/20 20:04 Last Admin: 07/16/20 17:15 Dose: 30 ml Documented by: Magnesium Oxide (Magnesium Oxide 400 Mg Tab) [facility] [place] Stop: 08/12/20 08:59 Last Admin: 07/22/20 08:53 Dose: 400 mg Documented by: Metoprolol Succinate (Metoprolol Succ 50mg Ext Rel Tab) 50 mg PO QPM [facility] Stop: 08/11/20 20:59 Last Admin: 07/21/20 21:21 Dose: 50 mg Documented by: Metoprolol Succinate (Metoprolol Succ 25mg Ext Rel Tab) [facility] [place] Stop: 08/21/20 05:29 Last Admin: 07/22/20 06:13 Dose: 75 mg Documented by: Miscellaneous (Carbohydrates For Hypoglycemia ) 15 - 30 gm PO UD PRN PRN Reason: Hypoglycemia Protocol Stop: 08/11/20 20:04 Last Admin: 07/13/20 16:50 Dose: 15 gm Documented by: Miscellaneous Information (Pharmacy Glycemic Mgmt Consult) 1 ea N/A UD MATT; Protocol Stop: 08/11/20 20:17 Miscellaneous Information (Piperacill/Tazobac Consult Active) 1 ea N/A UD PRN PRN Reason: Consult Stop: 08/17/20 13:53 Nitroglycerin (Nitroglycerin Sl 0.4 Mg/Tab Tab) 0.4 mg SL Q5M PRN PRN Reason: Chest Pain Stop: 08/11/20 20:04 Ondansetron HCl (Ondansetron Inj 2 Mg/Ml 2 Ml Vial) 4 mg IV Q6H PRN PRN Reason: Nausea Stop: 08/11/20 20:04 Oxycodone HCl (Oxycodone Hcl Ir 5 Mg Tab (Immediate Release)) 5 mg PO Q6H PRN PRN Reason: Pain Stop: 07/29/20 08:56 Last Admin: 07/22/20 00:22 Dose: 5 mg Documented by: Pantoprazole Sodium (Pantoprazole 40 Mg Tab) 40 mg PO QAM MATT Stop: 08/12/20 08:59 Last Admin: 07/22/20 08:51 Dose: 40 mg Documented by: Polyethylene Glycol (Polyethylene (Miralax) 17 Gm Pack) 17 gm PO DAILY PRN PRN Reason: Constipation Stop: 08/11/20 20:04 Last Admin: 07/17/20 01:06 Dose: 17 gm Documented by: Potassium Chloride (Potassium Chloride Crtab 20 Meq Tabcr) 40 meq PO BID MATT Stop: 08/21/20 05:34 Last Admin: 07/22/20 06:05 Dose: 40 meq Documented by: Sodium Chloride (Sodium Chloride 0.9% 10ml Flush) 30 ml IV Q24H MATT Stop: 07/24/20 21:01 Last Admin: 07/21/20 21:24 Dose: 30 ml Documented by: Torsemide (Torsemide 20 Mg Tab) 60 mg PO BID MATT Stop: 08/11/20 20:59 Last Admin: 07/22/20 08:54 Dose: 60 mg Documented by: Warfarin Sodium (Warfarin Sod 2 Mg Tab) 2 mg PO DAILY@1600 [facility] Stop: 08/13/20 15:59 Last Admin: 07/21/20 16:17 Dose: 2 mg Documented by: Zolpidem Tartrate (Zolpidem Tartrate 5 Mg Tab) 5 mg PO HS PRN PRN Reason: Sleep Stop: 08/11/20 20:04 Last Admin: 07/20/20 01:15 Dose: 5 mg Documented by:
--- NOTE | 2020-07-22 11:18 | XRay Report ---
XR chest 1V portable HISTORY: 54 years-old Male COVID pneumonia, re-eval pulm congestion follow-up study in a patient wit h shortness of breath. COVID Positive pneumonia COMPARISON: Chest radiograph 07/18/2020 TECHNIQUE: Portable AP view of the chest FINDINGS: Cardiomegaly with pulmonary vascular congestion. Single left subclavian pacer/AICD. No pneumothorax. No large pleural effusion. Progression of right greater than left bilateral airspace opacities. 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 IMPRESSION: 1. Progressively worsened right greater than left bilateral airspace opacities suggestive of multifoc al pneumonia. 2. Cardiomegaly with pulmonary vascular congestion. ACT 112: Negative or not required by law. The above report was generated using voice recognition software. It may contain grammatical, syntax o r spelling errors. Electronically signed by: Flynn Johnson M.D. 07/22/2020 11:16 AM
--- NOTE | 2020-07-22 11:37 | Communication Note ---
Date of Service: July 22, 2020 Patient continues to improve. Per Dr. Bates, no plan on surgical intervention at this time. Continue current IV antibiotics. Can follow up with Dr. Bates as an outpatient. Will reassess as needed. Ortho will sign off at this time. Please call with any questions.
--- NOTE | 2020-07-22 13:27 | Cardiology Consultation ---
Date of Consultation July 22, 2020 Assessment & Plan (1) Pneumonia due to COVID-19 virus: The patient has been started on Resendevir and is currently in isolation (2) S/P ICD (internal cardiac defibrillator) procedure: (3) Atrial fibrillation: He is in persistent atrial fibrillation and current medications should be continued as heart rate seems to be adequately controlled. (4) Ischemic cardiomyopathy: Continue current outpatient medications with diuretics adjusted as needed. (5) Foot infection: Per medicine service and the wound clinic the patient has been started on antibiotics. May eventually need further surgical debridement. (6) Morbid obesity: (7) Ventricular tachycardia: In regard to ventricular tachycardia, the patient does have an ICD which is functioning appropriately. If he continues to have ventricular tachycardia and/or it becomes incessant or sustained, although we do not like to use amio darone in the setting of pneumonitis, it is the best option that we have and I would therefore start the patient either on IV or p.o. amiodarone. History of Present Illness Attending Physician: Katharina Flores DO History of Present Illness This is a 54-year-old male patient well-known to our service with complex cardiac disease. He has an ischemic cardiomyopathy with an estimated left ventricular ejection fraction of around 35% and severe coronary artery disease deemed medical therapy. He is status post ICD. He has a history of paroxysmal atrial fibrillation. He also has a history of ventricular tachycardia and in October of last year underwent a VT ablation at [facility]. Following that procedure the patient had been taken off of amiodarone and appears that he had been doing well. He does have a history of stage III kidney disease, dyslipidemia, hypertension, obesity and diabetes. According to our records he does have some issues with med compliance. He has a diabetic foot ulcer with a prolonged hospitalization through the month of May and early June. He has been readmitted with dehiscence of the left foot ulcer and has been noted to be Covid positive for which she is started treatment. During this hospital admission he has been having runs of nonsustained ventricular tachycardia for which we have been consulted. Per our standard protocol, patients in the Covid unit are consulted with a chart review only unless circumstances require us to physically see the patient. Allergies Allergy/AdvReac Type Severity Reaction Status Date / Time benzonatate AdvReac Intermediate choking, Verified 07/12/20 14:54 gagging Home Medications Medication Instructions Recorded Confirmed Type fluticasone propionate 50 2 sprays INTNAS BID gm 12/21/17 07/12/20 History mcg/actuation nasal spray,suspension levothyroxine 100 mcg capsule 100 mcg PO QAM 12/21/17 07/12/20 History magnesium oxide 400 mg PO QAM cap 12/21/17 07/12/20 History mometasone-formoterol HFA 200 2 puffs INH BID 12/21/17 07/12/20 History mcg-5 mcg/actuation aerosol inhaler nitroglycerin 0.4 mg sublingual 0.4 mg SL Q5M PRN 12/21/17 07/12/20 History tablet omeprazole 20 mg capsule,delayed 20 mg PO QAM 12/21/17 07/12/20 History release tramadol 50 mg tablet 50 mg PO Q6H PRN 12/21/17 07/12/20 History ergocalciferol (vitamin D2) 50,000 unit PO WK 04/12/19 07/12/20 History gabapentin 300 mg PO TID 04/12/19 07/12/20 History hyoscyamine sulfate [Levsin] 0.125 mg PO TID 04/12/19 07/12/20 History atorvastatin 80 mg PO PM 01/18/20 07/12/20 History clobetasol 1 applic TOPICAL BID 01/18/20 07/12/20 History potassium chloride 20 meq PO QAM 01/18/20 07/12/20 History blood-glucose meter #1 ea 02/21/20 07/12/20 Rx insulin aspart U-100 100 unit/mL See Rx Instructions CONTINUOUS 02/29/20 07/12/20 Rx subcutaneous solution SUBCUTANEOUS INFUSION DAILY #12 ml ammonium lactate 5 % lotion 1 applic TOPICAL DAILY PRN #226 g 04/19/20 07/12/20 Rx dulaglutide 1.5 mg/0.5 mL 1.5 mg SQ WK ml 05/03/20 07/12/20 History subcutaneous pen injector albuterol sulfate [Ventolin HFA] 2 puff INHALATION QID PRN 05/30/20 07/12/20 History doxycycline hyclate 100 mg tablet 100 mg PO bid #28 tab 06/08/20 07/12/20 Rx aspirin 81 mg PO DAILY 06/12/20 07/12/20 History metoprolol succinate 50 mg PO QPM 30 Days #30 tab 06/29/20 07/12/20 Rx metoprolol succinate 75 mg PO QAM 30 Days #90 tab 06/29/20 07/12/20 Rx torsemide 60 mg PO BID #180 tab 06/29/20 07/12/20 Rx collagenase clostridium histo. 250 1 applic TOPICAL DAILY #90 g 07/05/20 07/12/20 Rx unit/gram topical ointment hydrocodone 10 mg-acetaminophen 15 ml PO Q8H PRN 07/12/20 07/12/20 History 325 mg/15 mL (15 mL) oral solution warfarin 1 - 2 mg PO UD 07/12/20 07/12/20 History Patient History Medical History Arthritis Asthma well controlled, daily intermediate 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 Bacteremia due to group B Streptococcus CAD (coronary artery disease) Cardiac defibrillator in situ 2007 with replacement 03/2020. follows with Dr. Maya. CKD (chronic kidney disease) stage 3, GFR 30-59 ml/min Deformity of foot Depression Diabetes type 2, uncontrolled Diabetic peripheral neuropathy associated with type 2 diabetes mellitus Dyslipidemia GERD (gastroesophageal reflux disease) H/O osteomyelitis History of diabetic ulcer of foot Hx of myocardial infarction found on testing Hx of osteomyelitis Hx of sepsis 06/2019 Hypertension Hypokalemia Hypothyroidism Ischemic cardiomyopathy Adams fracture Base of left fifth metatarsal, nonhealing x years Lymphedema Morbid obesity Rectal bleeding Sleep apnea BIPAP Sustained VT (ventricular tachycardia) Venous stasis ulcer of right lower leg with edema of right lower leg Vitamin D deficiency Surgical History H/O cardiac radiofrequency ablation OCTOBER 2019 ([facility]) AT [facility] H/O foot surgery LEFT FOOT ULCER DEBRIDEMENT H/O shoulder surgery left History of cardiac cath V. tach -- no stent. 06/2019. unsure where it was done History of colonoscopy History of esophagogastroduodenoscopy (EGD) History of sinus surgery Hx of amputation of lesser toe Hx of tonsillectomy Family History Sister Family history of diabetes mellitus 2 Grandmother (Maternal) Family history of diabetes mellitus Grandfather (Maternal) Family history of diabetes mellitus Father Cancer Mother Cancer Other No family history of adverse response to anesthesia Social History Smoking Status: Never smoker Second Hand Exposure: No; Do You Dip or Chew Tobacco: No; Tobacco Cessation Education Requested by Patient: No Hx Alcohol Use: Yes Alcohol type: beer Hx Substance Use: No Preferred Language: [place] Communication Ability: Effective Environmental Health Inspector Required: No Beliefs That Will Affect Care: None marital status: Current Living Situation: Spouse current occupational status: disabled Other Information That Helps Us Care for You: No Feels Safe at Home: Yes Safety Concerns: Feels Safe At This Time Assistive Devices: Walker Review of Systems Review of Systems: All systems reviewed & are unremarkable except as noted in HPI & below Nothing additional to add. Physical Exam Physical Exam: Exam was deferred due to the patient being in the Covid unit. Results & Data ([facility]) Vital Signs (Past 12 Hours) Vital Signs Temp Pulse Pulse Resp BP BP Pulse Ox 07/22/20 11:13 36.6 C 81 18 130/74 94 07/22/20 08:48 84 07/22/20 07:41 36.6 C 84 19 109/71 96 07/22/20 05:06 36.5 C 87 18 114/72 94 Laboratory Results Laboratory Results - last 24 hr 07/21/20 07/21/20 07/21/20 16:33 21:00 21:33 WBC RBC Hgb Hct MCV MCH MCHC RDW Std Deviation RDW Coeff of Мария Plt Count MPV Sodium 136 Potassium 3.4 L Chloride 102 Carbon Dioxide 29 Anion Gap 5.0 BUN 31 H Creatinine 1.48 H Est Cr Clr Drug Dosing 90.9 Est GFR ( Amer) 60.4 Est GFR (Non-Af Amer) 52.1 BUN/Creatinine Ratio 20.7 H Glucose 131 H POC Glucose 168 H 147 H Calcium 8.4 L Magnesium 2.1 AST ALT C-Reactive Protein Procalcitonin TSH 07/22/20 07/22/20 07/22/20 05:53 05:53 05:53 WBC 3.87 L RBC 4.39 L Hgb 12.0 L Hct 36.8 L MCV 83.8 MCH 27.3 MCHC 32.6 RDW Std Deviation 53.7 H RDW Coeff of Мария 17.3 H Plt Count 370 MPV 9.6 Sodium 138 Potassium 3.7 Chloride 103 Carbon Dioxide 31 Anion Gap 4.0 BUN 33 H Creatinine 1.37 Est Cr Clr Drug Dosing 97.6 Est GFR ( Amer) 66.4 Est GFR (Non-Af Amer) 57.2 BUN/Creatinine Ratio 24.3 H Glucose 96 POC Glucose Calcium 8.3 L Magnesium 2.1 AST 78 H ALT 34 C-Reactive Protein 3.89 H Procalcitonin 0.09 TSH 0.287 L 07/22/20 07/22/20 08:02 11:59 WBC RBC Hgb Hct MCV MCH MCHC RDW Std Deviation RDW Coeff of Мария Plt Count MPV Sodium Potassium Chloride Carbon Dioxide Anion Gap BUN Creatinine Est Cr Clr Drug Dosing Est GFR ( Amer) Est GFR (Non-Af Amer) BUN/Creatinine Ratio Glucose POC Glucose 116 H 211 H Calcium Magnesium AST ALT C-Reactive Protein Procalcitonin TSH Medications Administered Current Inpatient Medications Acetaminophen (Acetaminophen 325 Mg Tab) 650 mg PO Q4H PRN PRN Reason: Pain or Fever Stop: 08/11/20 20:04 Last Admin: 07/21/20 08:42 Dose: 650 mg Documented by: Al Hydrox/Mg Hydrox/Simethicone (Aluminum/Magnesium Susp 30 Ml Udc) 15 ml PO Q4H PRN PRN Reason: Dyspepsia Stop: 08/11/20 20:04 Aspirin (Aspirin 81 Mg Ectab) 81 mg PO DAILY [facility] Stop: 08/12/20 08:59 Last Admin: 07/22/20 08:53 Dose: 81 mg Documented by: Atorvastatin Calcium (Atorvastatin 40 Mg Tab) 80 mg PO PM MATT Stop: 08/16/20 21:28 Last Admin: 07/21/20 21:21 Dose: 80 mg Documented by: Bisacodyl (Bisacodyl 5 Mg Tabec) 10 mg PO DAILY MATT Stop: 08/17/20 08:59 Last Admin: 07/22/20 08:56 Dose: Not Given Documented by: Clobetasol Propionate (Clobetasol Propionate 0.05% Oint 15 Gm Tube) 1 appln EXT BID MATT Stop: 08/11/20 20:59 Last Admin: 07/22/20 08:57 Dose: 1 appln Documented by: Collagenase (Collagenase Oint 30 Gm Tube) 1 appln TOP DAILY MATT Stop: 08/12/20 08:59 Last Admin: 07/22/20 08:52 Dose: 1 appln Documented by: Dextrose (Dextrose 50% 50 Ml Syringe) 25 - 50 ml IV UD PRN; Protocol PRN Reason: Hypoglycemia Protocol Stop: 08/11/20 20:04 Last Admin: 07/18/20 16:39 Dose: 50 ml Documented by: Fluticasone Propionate (Fluticasone Propionate Na Spr 16 Gm Btl) 2 sprays DAIN BID PRN PRN Reason: post nasal drip Stop: 08/11/20 20:59 Fluticasone/Vilanterol (Fluticasone/Vilanterol 200/25mcg 14 Puffs/Inhaler) 1 puffs INH DAILY MATT Stop: 08/11/20 20:59 Last Admin: 07/22/20 08:58 Dose: 1 puffs Documented by: Gabapentin (Gabapentin 300 Mg Cap) 300 mg PO TID MATT Stop: 08/11/20 20:59 Last Admin: 07/22/20 08:51 Dose: 300 mg Documented by: Glucagon (Glucagon For Inj 1 Mg Vial) 1 mg SQ UD PRN; Protocol PRN Reason: Hypoglycemia Protocol Stop: 08/11/20 20:04 Glucose (Glucose 10 Tabs/Tube) 4 - 8 tabs PO UD PRN; Protocol PRN Reason: Hypoglycemia Protocol Stop: 08/11/20 20:04 Glucose (Glucose 40% Gel 15 Gm Tube) 15 - 30 gm PO UD PRN; Protocol PRN Reason: Hypoglycemia Protocol Stop: 08/11/20 20:04 Guaifenesin (Guaifenesin 600 Mg Tabcr) 600 mg PO Q12 MATT Stop: 08/14/20 20:59 Last Admin: 07/22/20 08:53 Dose: 600 mg Documented by: Hydrocortisone (Hydrocortisone Acetate 25 Mg Supp) 25 mg MO BID PRN PRN Reason: Hemorrhoids Stop: 08/13/20 02:07 Last Admin: 07/18/20 09:16 Dose: 25 mg Documented by: Hyoscyamine (Hyoscyamine Sulfate 0.125 Mg Tab) 0.125 mg PO TID MATT Stop: 08/11/20 20:59 Last Admin: 07/22/20 08:54 Dose: 0.125 mg Documented by: Piperacillin Sod/Tazobactam (Sod 4.5 gm/ Dextrose) 120 mls @ 30 mls/hr IV Q8H [facility]; Protocol Stop: 07/25/20 19:59 Last Admin: 07/22/20 11:54 Dose: 30 mls/hr Documented by: Dexamethasone 6 mg/ Syringe 1.5 mls @ 1 mls/min IV Q24H [facility] Stop: 08/19/20 08:59 Last Admin: 07/22/20 08:52 Dose: 1 mls/min Documented by: Remdesivir 100 mg/ Sodium (Chloride) 250 mls @ 250 mls/hr IV Q24H [facility]; Protocol Stop: 07/24/20 20:59 Last Infusion: 07/21/20 21:17 Dose: Infused Documented by: Insulin Aspart (Insulin Aspart 100 Units/Ml 3 Ml Pen) 0 units SC 1130,1630,2100 [facility]; Protocol Stop: 08/11/20 20:59 Last Admin: 07/22/20 12:13 Dose: 29 units Documented by: Insulin Aspart (Insulin Aspart 100 Units/Ml 3 Ml Pen) 0 units SC 0730 [facility]; Protocol Stop: 08/18/20 07:29 Last Admin: 07/22/20 09:00 Dose: 36 units Documented by: Insulin Glargine (Insulin Glargine Solostar 100 Units/Ml 3 Ml Pen) 30 units SQ BID [facility]; Protocol Stop: 08/21/20 08:59 Last Admin: 07/22/20 08:58 Dose: 30 units Documented by: Insulin Human NPH (Insulin Human Nph) 50 units SC DAILY [facility] Stop: 08/20/20 08:59 Last Admin: 07/22/20 09:00 Dose: 50 units Documented by: Ipratropium [place] (Ipratropium [place] Neb Soln 0.02% 2.5 Ml Vial) 0.5 mg INH Q2H PRN PRN Reason: Shortness Of Breath Or Wheezing Stop: 08/14/20 19:29 Last Admin: 07/21/20 03:46 Dose: 0.5 mg Documented by: Levalbuterol HCl (Levalbuterol 1.25mg/0.5ml Neb) 1.25 mg INH Q2H PRN PRN Reason: Shortness Of Breath Or Wheezing Stop: 08/14/20 19:29 Last Admin: 07/21/20 03:46 Dose: 1.25 mg Documented by: Levothyroxine Sodium (Levothyroxine Sodium 100 Mcg Tablet) 100 mcg PO DAILYBB [facility] Stop: 08/12/20 06:29 Last Admin: 07/22/20 06:06 Dose: 100 mcg Documented by: Magnesium Hydroxide (Magnesium Hydroxide Susp 30 Ml Ud) 30 ml PO Q12H PRN PRN Reason: Constipation Stop: 08/11/20 20:04 Last Admin: 07/16/20 17:15 Dose: 30 ml Documented by: Magnesium Oxide (Magnesium Oxide 400 Mg Tab) 400 mg PO QAM [facility] Stop: 08/12/20 08:59 Last Admin: 07/22/20 08:53 Dose: 400 mg Documented by: Metoprolol Succinate (Metoprolol Succ 50mg Ext Rel Tab) 50 mg PO QPM [facility] Stop: 08/11/20 20:59 Last Admin: 07/21/20 21:21 Dose: 50 mg Documented by: Metoprolol Succinate (Metoprolol Succ 25mg Ext Rel Tab) [facility] [place]: 08/21/20 05:29 Last Admin: 07/22/20 06:13 Dose: 75 mg Documented by: Miscellaneous (Carbohydrates For Hypoglycemia ) 15 - 30 gm PO UD PRN PRN Reason: Hypoglycemia Protocol Stop: 08/11/20 20:04 Last Admin: 07/13/20 16:50 Dose: 15 gm Documented by: Miscellaneous Information (Pharmacy Glycemic Mgmt Consult) 1 ea N/A UD MATT; Protocol Stop: 08/11/20 20:17 Miscellaneous Information (Piperacill/Tazobac Consult Active) 1 ea N/A UD PRN PRN Reason: Consult Stop: 08/17/20 13:53 Nitroglycerin (Nitroglycerin Sl 0.4 Mg/Tab Tab) 0.4 mg SL Q5M PRN PRN Reason: Chest Pain Stop: 08/11/20 20:04 Ondansetron HCl (Ondansetron Inj 2 Mg/Ml 2 Ml Vial) 4 mg IV Q6H PRN PRN Reason: Nausea Stop: 08/11/20 20:04 Oxycodone HCl (Oxycodone Hcl Ir 5 Mg Tab (Immediate Release)) 5 mg PO Q6H PRN PRN Reason: Pain Stop: 07/29/20 08:56 Last Admin: 07/22/20 11:33 Dose: 5 mg Documented by: Pantoprazole Sodium (Pantoprazole 40 Mg Tab) 40 mg PO QAM MATT Stop: 08/12/20 08:59 Last Admin: 07/22/20 08:51 Dose: 40 mg Documented by: Polyethylene Glycol (Polyethylene (Miralax) 17 Gm Pack) 17 gm PO DAILY PRN PRN Reason: Constipation Stop: 08/11/20 20:04 Last Admin: 07/17/20 01:06 Dose: 17 gm Documented by: Potassium Chloride (Potassium Chloride Crtab 20 Meq Tabcr) 40 meq PO BID MATT Stop: 08/21/20 05:34 Last Admin: 07/22/20 06:05 Dose: 40 meq Documented by: Sodium Chloride (Sodium Chloride 0.9% 10ml Flush) 30 ml IV Q24H MATT Stop: 07/24/20 21:01 Last Admin: 07/21/20 21:24 Dose: 30 ml Documented by: Torsemide (Torsemide 20 Mg Tab) 60 mg PO BID MATT Stop: 08/11/20 20:59 Last Admin: 07/22/20 08:54 Dose: 60 mg Documented by: Warfarin Sodium (Warfarin Sod 2 Mg Tab) 2 mg PO DAILY@1600 [facility] Stop: 08/13/20 15:59 Last Admin: 07/21/20 16:17 Dose: 2 mg Documented by: Zolpidem Tartrate (Zolpidem Tartrate 5 Mg Tab) 5 mg PO HS PRN PRN Reason: Sleep Stop: 08/11/20 20:04 Last Admin: 07/20/20 01:15 Dose: 5 mg Documented by:
--- NOTE | 2020-07-22 15:17 | Electrocardiogram Report ---
Test Reason : Blood Pressure : / mmHG Vent. Rate : 092 BPM Atrial Rate : 092 BPM P-R Int : 000 ms QRS Dur : 102 ms QT Int : 390 ms P-R-T Axes : 000 008 134 degrees QTc Int : 482 ms Atrial fibrillation with premature ventricular or aberrantly conducted complexes Anterior infarct (cited on or before 13-JUN-2020) Abnormal ECG When compared with ECG of 12-JUL-2020 16:57, Questionable change in initial forces of Anterior leads Nonspecific T wave abnormality now evident in Inferior leads Nonspecific T wave abnormality, worse in Lateral leads Confirmed by Tereso Reyna ([id number]) on 07/22/2020 3:16:48 PM Referred By: REFERRED SELF Confirmed By:Tereso Reyna
[2020-07-22] MEDS: WARFARIN SOD 2 MG TAB PO SCH (15:49)
[2020-07-22] MEDS: REMDESIVIR 100 MG in SODIUM CHLORIDE 0.9% 230 ML IV SCH (20:00)
[2020-07-22] MEDS: SODIUM CHLORIDE 0.9% 10ML FLUSH IV SCH (20:02)
[2020-07-22] MEDS: ATORVASTATIN 40 MG TAB PO SCH (20:04)
[2020-07-22] MEDS: METOPROLOL SUCC 50MG EXT REL TAB PO SCH (20:07)
[2020-07-23] MEDS: oxyCODONE HCL IR 5 MG TAB (IMMEDIATE RELEASE) PO PRN ×2 (01:02→16:03)
[2020-07-23] MEDS: PIPERACILLIN/TAZOBACTAM 4.5 GM in DEXTROSE 5% 100 ML IV SCH ×3 (03:37→19:39)
[2020-07-23] MEDS: LEVOTHYROXINE SODIUM 100 MCG TABLET PO SCH (03:42)
[2020-07-23] MEDS: METOPROLOL SUCC 25MG EXT REL TAB PO SCH ×2 (04:31→19:55)
[2020-07-23] MEDS: POTASSIUM CHLORIDE CRTAB 20 MEQ TABCR PO SCH ×2 (04:33→20:04)
[2020-07-23 04:51] LABS: Hematocrit (blood only) 38.5 % (42-52); Hemoglobin 12.3 g/dL (14.0-18.0); Mean Corpuscular Hemoglobin 27.2 pg (25-34); Mean Corpuscular Hgb Conc 31.9 g/dL (32-36); Mean Corpuscular Volume 85.2 fL (80-100); Mean Platelet Volume 9.5 fL (7.4-10.4); Platelet Count 387 K/uL (130-400); RDW Coefficient of Variation 17.3 % (11.5-14.5); RDW Standard Deviation 53.6 fL (36.4-46.3); Red Blood Count 4.52 M/uL (4.7-6.1); White Blood Count 5.76 K/uL (4.8-10.8)
[2020-07-23 05:11] LABS: Calcium 8.3 mg/dl (8.5-10.1); Creatinine Clr Calc Pharmacy 92.9 ml/min; Est GFR (African American) 62.5; Est GFR (Non-African American) 53.9; Magnesium 2.1 mg/dl (1.8-2.4); Potassium 3.6 mmol/L (3.5-5.1)
[2020-07-23 05:14] LABS: Albumin Globulin Ratio 0.3 (0.9-2); Bilirubin,Total 0.6 mg/dl (0.2-1); C Reactive Protein 2.32 mg/dl (0-0.29); Globulin 7.4 gm/dl (2.5-4.0); Phosphorus 3.1 mg/dl (2.5-4.9); Total Protein 9.4 gm/dl (6.4-8.2)
[2020-07-23] MEDS: CARBOHYDRATES FOR HYPOGLYCEMIA PO PRN (08:00)
[2020-07-23] MEDS: DEXTROSE 50% 50 ML SYRINGE IV PRN (08:21)
[2020-07-23] MEDS ORDERED: INSULIN GLARGINE SOLOSTAR 100 UNITS/ML 3 ML PEN SQ SCH (09:00)
[2020-07-23] MEDS: INSULIN ASPART 100 UNITS/ML 3 ML PEN SC SCH ×4 (09:18→22:00)
[2020-07-23] MEDS: INSULIN GLARGINE SOLOSTAR 100 UNITS/ML 3 ML PEN SQ SCH ×2 (09:19→22:00)
[2020-07-23] MEDS: INSULIN HUMAN NPH SC SCH (09:20)
[2020-07-23] MEDS: dexAMETHasone 6 MG in SYRINGE 0 ML IV SCH (09:22)
--- NOTE | 2020-07-23 09:23 | Hospitalist Progress Note ---
Date of Service July 23, 2020 Assessment & Plan (1) Pneumonia due to COVID-19 virus: CXR with infiltrates and worsening symptoms. Worsening pneumonia on CXR. Cont torsemide for now but consider converting or adding intravenous diuretics if he begins to desaturate. Also consider proning patient anytime he is amenable to this. Improvement in CRP. Cont decadron and remdesivir. (2) Sustained ventricular tachycardia: History of ablation status post ICD in October 2023 multiple episodes of sustained tachycardia last year. Has a history of amiodarone therapy which was stopped at the time of ICD placement. Cardiology was consulted for a return of sustained ventricular tachycardia. The patient reports noncompliance with his BiPAP as he has not been able to get any sleep here per his report. He was encouraged to remain compliant as much as possible. We will continue to keep potassium greater than 4 and magnesium greater than 2 and check a daily BMP for this. Cardiology is consulted and will monitor his progress and consider amiodarone therapy if needed. Several episodes on telemetry overnight and today in setting of pulmonary infection. (3) Diabetic ulcer of left foot associated with type 2 diabetes mellitus, with fat layer exposed: He was recently admitted with prolonged hospital stay secondary to a left lateral diabetic neuropathic foot ulcer with deep abscess of the foot. On 06/15 he underwent I&D with wound debridement by Dr. Tiago Bates with subsequent placement of antibiotic beads. Since that time he was followed by wound care and reported compliance with doxycycline, however, he suffered a wound dehiscence. He came back to the ER from wound clinic with wound dehiscence and decompensation of area without sepsis. Wound culture revealed pseudomonas and Daptomycin was eventually stopped with continuation of Zosyn, Day 12 of 14. Wound care this admission evaluated him with new instructions for QOD dressing, ID consulted and recommending two weeks IV antibiotics. He continues on Zosyn at this time with improvement in surrounding LLE cellulitis of the leg. Orthopedics consulted and feels no urgency for repeat debridement at this time. MRI foot last month revealed no evidence of osteomyelitis. He has been having fevers and also has coinfection with novel coronavirus with evidence of pneumonia on CXR. Ortho with plans for re-evaluation over next couple of days. (4) Cellulitis of left lower leg: Improved with antibiotic therapy as above. (5) Atrial fibrillation: Therapeutic on coumadin, cont metoprolol for rate control. (6) Chronic diastolic heart failure: Chronic combined systolic and diastolic CHF appears euvolemic on Torsemide 60 mg twice daily per home regimen. (7) Chronic pain: Typically uses tramadol at home but has been allowed to use oxycodone this admission. Cont PRN, and monitor closely for excessive sleepiness in setting of NINA. (8) Diabetes type 2, uncontrolled: Uncontrolled, with A1C 7.6 and complications including neuropathy. Home insulin pump held on admission and glycemic pharmacist assisting with basal bolus insulin management while hospitalized. (9) Morbid obesity: Lifestyle modifications enforced for goal decreased percent body fat overall. (10) S/P ICD (internal cardiac defibrillator) procedure: (11) DVT prophylaxis: coumadin with therapeutic INR Full Code Dispo-to home when medically stable, reasonable to finish IV antibiotic course here and also continue monitoring for improvement from covid pneumonia during that time. pending Ortho plans for repeat debridement. Katharina Flores DO [facility] Hospitalist Admission and Anticipated Discharge Date Admission Date: July 12, 2020 Subjective 54 yo COVID positive man with diabetic foot infection who developed covid pneumonia. -some pain in foot -difficulty tolerating CPAP at night because he has an ear issue which causing him ear discomfort with the pressure-has outpatient appt set up to evaluate this -reports breathing has improved but he is bothered by a cough -glucose was low this morning as overnight snack carbs were covered-glycemic pharmacist managing and is holding HS carb coverage moving forward for now. -reports feeling stronger overall Review of Systems Review of Systems: All systems reviewed & are unremarkable except as noted in Subjective Physical Exam Physical Exam: CONSTITUTIONAL: morbid obesity, vitals as above, generally well-appearing EYES: normal conjunctivae, no scleral icterus ENT: external ear and nose normal, MMM RESPIRATORY: clear to auscultation bilaterally, no crackles, rales or wheezes, normal respiratory effort CARDIOVASCULAR: regular rate and rhythm, S1 and 2 heard without murmurs, gallops or rubs, no JVD, no peripheral edema GASTROINTESTINAL: soft, nontender, nondistended, no guarding, protuberant, large pannus MUSCULOSKELETAL: sitting in bedside chair, generalized weakness, limited mobility 2/2 illness and body habitus, head is normocephalic and atraumatic SKIN: warm and dry, dry dressing intact covering both wounds, no drainage present. NEUROLOGIC: CN 2-12 grossly intact, normal cognition, no gross focal deficits. PSYCHIATRIC: alert cooperative and oriented to person, place and time. Results & Data Results & Data ([facility]) Vital Signs (Past 12 Hours) Vital Signs Temp Pulse Resp BP Pulse Ox 07/23/20 07:35 36.4 C L 102 H 22 119/74 92 07/23/20 03:28 36.3 C L 74 18 129/84 94 07/22/20 23:01 36.6 C 77 114/77 96 Laboratory Results Short CBC 07/23/20 Range/Units 04:37 WBC 5.76 (4.8-10.8) K/uL Hgb 12.3 L (14.0-18.0) g/dL Hct 38.5 L (42-52) % Plt Count 387 (130-400) K/uL BMP 07/23/20 04:37 Sodium 140 Potassium 3.6 Chloride 105 Carbon Dioxide 32 BUN 36 H Creatinine 1.44 H Glucose 61 L Calcium 8.3 L Liver Function 07/23/20 Range/Units 04:37 Total Bilirubin 0.6 (0.2-1) mg/dl AST 79 H (15-37) U/L ALT 37 (12-78) U/L Alkaline Phosphatase 93 (45-117) U/L Albumin 2.0 L (3.4-5.0) gm/dl Medications Administered Current Inpatient Medications Acetaminophen (Acetaminophen 325 Mg Tab) 650 mg PO Q4H PRN PRN Reason: Pain or Fever Stop: 08/11/20 20:04 Last Admin: 07/21/20 08:42 Dose: 650 mg Documented by: Al Hydrox/Mg Hydrox/Simethicone (Aluminum/Magnesium Susp 30 Ml Udc) 15 ml PO Q4H PRN PRN Reason: Dyspepsia Stop: 08/11/20 20:04 Aspirin (Aspirin 81 Mg Ectab) 81 mg PO DAILY MATT Stop: 08/12/20 08:59 Last Admin: 07/22/20 08:53 Dose: 81 mg Documented by: Atorvastatin Calcium (Atorvastatin 40 Mg Tab) 80 mg PO PM MATT Stop: 08/16/20 21:28 Last Admin: 07/22/20 20:04 Dose: 80 mg Documented by: Bisacodyl (Bisacodyl 5 Mg Tabec) 10 mg PO DAILY MATT Stop: 08/17/20 08:59 Last Admin: 07/22/20 08:56 Dose: Not Given Documented by: Clobetasol Propionate (Clobetasol Propionate 0.05% Oint 15 Gm Tube) 1 appln EXT BID MATT Stop: 08/11/20 20:59 Last Admin: 07/22/20 20:12 Dose: Not Given Documented by: Collagenase (Collagenase Oint 30 Gm Tube) 1 appln TOP DAILY MATT Stop: 08/12/20 08:59 Last Admin: 07/22/20 08:52 Dose: 1 appln Documented by: Dextrose (Dextrose 50% 50 Ml Syringe) 25 - 50 ml IV UD PRN; Protocol PRN Reason: Hypoglycemia Protocol Stop: 08/11/20 20:04 Last Admin: 07/23/20 08:21 Dose: 25 ml Documented by: Fluticasone Propionate (Fluticasone Propionate Na Spr 16 Gm Btl) 2 sprays DAIN BID PRN PRN Reason: post nasal drip Stop: 08/11/20 20:59 Fluticasone/Vilanterol (Fluticasone/Vilanterol 200/25mcg 14 Puffs/Inhaler) 1 puffs INH DAILY MATT Stop: 08/11/20 20:59 Last Admin: 07/22/20 08:58 Dose: 1 puffs Documented by: Gabapentin (Gabapentin 300 Mg Cap) 300 mg PO TID MATT Stop: 08/11/20 20:59 Last Admin: 07/22/20 20:04 Dose: 300 mg Documented by: Glucagon (Glucagon For Inj 1 Mg Vial) 1 mg SQ UD PRN; Protocol PRN Reason: Hypoglycemia Protocol Stop: 08/11/20 20:04 Glucose (Glucose 10 Tabs/Tube) 4 - 8 tabs PO UD PRN; Protocol PRN Reason: Hypoglycemia Protocol Stop: 08/11/20 20:04 Glucose (Glucose 40% Gel 15 Gm Tube) 15 - 30 gm PO UD PRN; Protocol PRN Reason: Hypoglycemia Protocol Stop: 08/11/20 20:04 Guaifenesin (Guaifenesin 600 Mg Tabcr) 600 mg PO Q12 MATT Stop: 08/14/20 20:59 Last Admin: 07/22/20 20:06 Dose: 600 mg Documented by: Guaifenesin/Dextromethorphan (Guaifenesin/Dextrom Syrup 200mg/20mg 10ml Udc) 10 ml PO NOW STA Stop: 07/23/20 09:17 Guaifenesin/Dextromethorphan (Guaifenesin/Dextrom Syrup 200mg/20mg 10ml Udc) 10 ml PO Q6H PRN PRN Reason: Cough Stop: 08/22/20 09:15 Hydrocortisone (Hydrocortisone Acetate 25 Mg Supp) 25 mg RI BID PRN PRN Reason: Hemorrhoids Stop: 08/13/20 02:07 Last Admin: 07/18/20 09:16 Dose: 25 mg Documented by: Hyoscyamine (Hyoscyamine Sulfate 0.125 Mg Tab) 0.125 mg PO TID MATT Stop: 08/11/20 20:59 Last Admin: 07/22/20 20:03 Dose: 0.125 mg Documented by: Piperacillin Sod/Tazobactam (Sod 4.5 gm/ Dextrose) 120 mls @ 30 mls/hr IV Q8H [facility]; Protocol Stop: 07/25/20 19:59 Last Admin: 07/23/20 03:37 Dose: 30 mls/hr Documented by: Dexamethasone 6 mg/ Syringe 1.5 mls @ 1 mls/min IV Q24H MATT Stop: 08/19/20 08:59 Last Admin: 07/22/20 08:52 Dose: 1 mls/min Documented by: Remdesivir 100 mg/ Sodium (Chloride) 250 mls @ 250 mls/hr IV Q24H MATT; Protocol Stop: 07/24/20 20:59 Last Infusion: 07/22/20 21:45 Dose: Infused Documented by: Insulin Aspart (Insulin Aspart 100 Units/Ml 3 Ml Pen) 0 units SC 1130,1630,2100 [facility]; Protocol Stop: 08/11/20 20:59 Last Admin: 07/22/20 21:05 Dose: 4 units Documented by: Insulin Aspart (Insulin Aspart 100 Units/Ml 3 Ml Pen) 0 units SC 0730 MATT; Protocol Stop: 08/18/20 07:29 Last Admin: 07/23/20 09:18 Dose: 18 units Documented by: Insulin Glargine (Insulin Glargine Solostar 100 Units/Ml 3 Ml Pen) 15 units SQ BID [facility]; Protocol Stop: 08/22/20 08:59 Last Admin: 07/23/20 09:19 Dose: 15 units Documented by: Insulin Human NPH (Insulin Human Nph) 40 units SC DAILY [facility] Stop: 08/22/20 08:59 Last Admin: 07/23/20 09:20 Dose: 40 units Documented by: Ipratropium [place] (Ipratropium [place] Neb Soln 0.02% 2.5 Ml Vial) 0.5 mg INH Q2H PRN PRN Reason: Shortness Of Breath Or Wheezing Stop: 08/14/20 19:29 Last Admin: 07/21/20 03:46 Dose: 0.5 mg Documented by: Levalbuterol HCl (Levalbuterol 1.25mg/0.5ml Neb) 1.25 mg INH Q2H PRN PRN Reason: Shortness Of Breath Or Wheezing Stop: 08/14/20 19:29 Last Admin: 07/21/20 03:46 Dose: 1.25 mg Documented by: Levothyroxine Sodium (Levothyroxine Sodium 100 Mcg Tablet) 100 mcg PO DAILYBB [facility] Stop: 08/12/20 06:29 Last Admin: 07/23/20 03:42 Dose: 100 mcg Documented by: Magnesium Hydroxide (Magnesium Hydroxide Susp 30 Ml Udc) 30 ml PO Q12H PRN PRN Reason: Constipation Stop: 08/11/20 20:04 Last Admin: 07/16/20 17:15 Dose: 30 ml Documented by: Magnesium Oxide (Magnesium Oxide 400 Mg Tab) 400 mg PO QAM [facility] Stop: 08/12/20 08:59 Last Admin: 07/22/20 08:53 Dose: 400 mg Documented by: Metoprolol Succinate (Metoprolol Succ 25mg Ext Rel Tab) 75 mg PO BID [facility] Stop: 08/22/20 04:14 Last Admin: 07/23/20 04:31 Dose: 75 mg Documented by: Miscellaneous (Carbohydrates For Hypoglycemia ) 15 - 30 gm PO UD PRN PRN Reason: Hypoglycemia Protocol Stop: 08/11/20 20:04 Last Admin: 07/23/20 08:00 Dose: 15 gm Documented by: Miscellaneous Information (Pharmacy Glycemic Mgmt Consult) 1 ea N/A UD MATT; Protocol Stop: 08/11/20 20:17 Miscellaneous Information (Piperacill/Tazobac Consult Active) 1 ea N/A UD PRN PRN Reason: Consult Stop: 08/17/20 13:53 Nitroglycerin (Nitroglycerin Sl 0.4 Mg/Tab Tab) 0.4 mg SL Q5M PRN PRN Reason: Chest Pain Stop: 08/11/20 20:04 Ondansetron HCl (Ondansetron Inj 2 Mg/Ml 2 Ml Vial) 4 mg IV Q6H PRN PRN Reason: Nausea Stop: 08/11/20 20:04 Oxycodone HCl (Oxycodone Hcl Ir 5 Mg Tab (Immediate Release)) 5 mg PO Q6H PRN PRN Reason: Pain Stop: 07/29/20 08:56 Last Admin: 07/23/20 01:02 Dose: 5 mg Documented by: Pantoprazole Sodium (Pantoprazole 40 Mg Tab) 40 mg PO QAM [facility] Stop: 08/12/20 08:59 Last Admin: 07/22/20 08:51 Dose: 40 mg Documented by: Polyethylene Glycol (Polyethylene (Miralax) 17 Gm Pack) 17 gm PO DAILY PRN PRN Reason: Constipation Stop: 08/11/20 20:04 Last Admin: 07/17/20 01:06 Dose: 17 gm Documented by: Potassium Chloride (Potassium Chloride Crtab 20 Meq Tabcr) 40 meq PO BID MATT Stop: 08/22/20 04:09 Last Admin: 07/23/20 04:33 Dose: 40 meq Documented by: Sodium Chloride (Sodium Chloride 0.9% 10ml Flush) 30 ml IV Q24H [facility] Stop: 07/24/20 21:01 Last Admin: 07/22/20 20:02 Dose: 30 ml Documented by: Torsemide (Torsemide 20 Mg Tab) 60 mg PO BID MATT Stop: 08/11/20 20:59 Last Admin: 07/22/20 20:05 Dose: 60 mg Documented by: Warfarin Sodium (Warfarin Sod 2 Mg Tab) 2 mg PO DAILY@1600 [facility] Stop: 08/13/20 15:59 Last Admin: 07/22/20 15:49 Dose: 2 mg Documented by: Zolpidem Tartrate (Zolpidem Tartrate 5 Mg Tab) 5 mg PO HS PRN PRN Reason: Sleep Stop: 08/11/20 20:04 Last Admin: 07/20/20 01:15 Dose: 5 mg Documented by:
[2020-07-23] MEDS: FLUTICASONE/VILANTEROL 200/25MCG 14 PUFFS/INHALER INH SCH (09:27)
[2020-07-23] MEDS: CLOBETASOL PROPIONATE 0.05% OINT 15 GM TUBE EXT SCH ×2 (09:27→20:04)
[2020-07-23] MEDS: guaiFENesin 600 MG TABCR PO SCH ×2 (09:28→20:03)
[2020-07-23] MEDS: TORSEMIDE 20 MG TAB PO SCH ×2 (09:29→20:03)
[2020-07-23] MEDS: MAGNESIUM OXIDE 400 MG TAB PO SCH (09:29)
[2020-07-23] MEDS: PANTOprazole 40 MG TAB PO SCH (09:29)
[2020-07-23] MEDS: ASPIRIN 81 MG ECTAB PO SCH (09:30)
[2020-07-23] MEDS: bisacodyL 5 MG TABEC PO SCH (09:30)
[2020-07-23] MEDS: GABAPENTIN 300 MG CAP PO SCH ×3 (09:31→20:03)
[2020-07-23] MEDS: HYOSCYAMINE SULFATE 0.125 MG TAB PO SCH ×3 (09:32→20:03)
[2020-07-23] MEDS ORDERED: guaiFENesin/DEXTROM SYRUP 200MG/20MG 10ML UDC PO ONE (10:00)
--- NOTE | 2020-07-23 11:00 | Pharmacy Report ---
Pharmacy Glycemic Short Note 2 - Date of Service July 23, 2020 - Glycemic Short BSG Results (Last 24 hours): 07/22/20 07/22/20 07/22/20 11:59 16:27 20:08 Glucose POC Glucose 211 H 118 H 103 H 07/23/20 07/23/20 07/23/20 04:37 07:55 07:57 Glucose 61 L POC Glucose 55 L* 59 L* 07/23/20 07/23/20 08:15 08:38 Glucose POC Glucose 55 L* 121 H OUTPATIENT ANTIDIABETIC REGIMEN: * Toujeo/Humalog listed along with Novolog pump - clarified with patient. He is only on pump as follows: * 9.4 units/hr basal * CHO coverage at 1 unit for every ~1-3 g CHO consumed * Additional correction based on "trends" - patient tired on interview and not willing/able to discuss further * Jardiance * Trulicity * HbA1c 8.1% on 06/13/20 ASSESSMENT: 07/23: * Patient received total of 201 units of insulin yesterday, of which 110 were basal * Fasting BSG low at 55 mg/dL - could be related to too much Lantus or too much novolog at HS time * Decreased AM Lantus dose by ~50% this AM. BSGs trending down yesterday rapidly, will also loosen CF/CR and scale back on NPH 07/22: * Pt has received 215 units of insulin over the past 24hrs * 70 units of basal with Lantus * 50 units of NPH for steroid induced hyperglycemia * 95 units of bolus with NovoLog * BSGs [phone] mg/dl * AM fasting continues to trend downwards. Will decrease basal insulin * Dexamethasone continues at 6mg IV daily - continue NPH 50 units daily with DXM (will dc NPH when DXM dc) * All post-prandial BSGs in range other than pre-lunch. Breakfast CHO ratio is already tighter than the rest of the day. Will wait to further adjust since pt may have more basal insulin on board than needed. PLAN FOR INPATIENT GLYCEMIC CONTROL: * Hold all outpatient diabetes medications * Basal insulin - decrease Lantus * Lantus 15 units SQ BID * NPH 40 units SQ daily - to be given with dexamethasone * Bolus insulin - no change * NovoLog per scale ACHS or Q6hrs while NPO * Goal Range: Low 110 mg/dL - High 140 mg/dL * Breakfast - Correction Factor: 15 mg/dL/unit; Nutritional / Prandial insulin per carb ratio of 1 unit per 3 grams CHO consumed * Lunch, Dinner, HS - Correction Factor: 20 mg/dL/unit; Nutritional / Prandial insulin per carb ratio of 1 unit per 4 grams CHO consumed PLAN FOR DISCHARGE: * Most recent HbA1c is 7.6% which is almost at goal and improving from previous HbA1c's. Continue outpatient regimen upon discharge.
[2020-07-23] MEDS: COLLAGENASE OINT 30 GM TUBE TOP SCH (11:58)
[2020-07-23] MEDS: WARFARIN SOD 2 MG TAB PO SCH ×2 (16:08→17:46)
[2020-07-23 17:24] LABS: INR 5.2 (0.9-1.1)
[2020-07-23] MEDS: REMDESIVIR 100 MG in SODIUM CHLORIDE 0.9% 230 ML IV SCH (19:38)
[2020-07-23] MEDS: ATORVASTATIN 40 MG TAB PO SCH (20:03)
[2020-07-23] MEDS: SODIUM CHLORIDE 0.9% 10ML FLUSH IV SCH (21:30)
[2020-07-23] MEDS ORDERED: MAGNESIUM SULFATE / D5W 1 GM/100 ML BAG IV ONE (22:56)
[2020-07-23] MEDS ORDERED: POTASSIUM CHLORIDE CRTAB 20 MEQ TABCR PO STA (22:56)
[2020-07-24] MEDS: oxyCODONE HCL IR 5 MG TAB (IMMEDIATE RELEASE) PO PRN ×2 (01:47→14:23)
[2020-07-24] MEDS: PIPERACILLIN/TAZOBACTAM 4.5 GM in DEXTROSE 5% 100 ML IV SCH ×3 (04:33→19:43)
[2020-07-24] MEDS: LEVOTHYROXINE SODIUM 100 MCG TABLET PO SCH (04:37)
[2020-07-24] MEDS: POTASSIUM CHLORIDE CRTAB 20 MEQ TABCR PO SCH ×2 (06:57→19:47)
[2020-07-24 07:50] LABS: Hematocrit (blood only) 41.5 % (42-52); Hemoglobin 13.2 g/dL (14.0-18.0); Mean Corpuscular Hemoglobin 27.2 pg (25-34); Mean Corpuscular Hgb Conc 31.8 g/dL (32-36); Mean Corpuscular Volume 85.4 fL (80-100); Mean Platelet Volume 9.7 fL (7.4-10.4); Platelet Count 390 K/uL (130-400); RDW Coefficient of Variation 17.7 % (11.5-14.5); RDW Standard Deviation 54.7 fL (36.4-46.3); Red Blood Count 4.86 M/uL (4.7-6.1)
[2020-07-24 08:26] LABS: BUN Creatinine Ratio 23.8 (10-20); C Reactive Protein 1.51 mg/dl (0-0.29); Calcium 8.9 mg/dl (8.5-10.1); Creatinine Clr Calc Pharmacy 85.4 ml/min; Est GFR (African American) 57.6; Est GFR (Non-African American) 49.7; Magnesium 2.2 mg/dl (1.8-2.4); Potassium 3.6 mmol/L (3.5-5.1)
[2020-07-24 08:27] LABS: Prothrombin Time 44.3 Seconds (9.0-12.0)
[2020-07-24] MEDS: INSULIN HUMAN NPH SC SCH (09:00)
--- NOTE | 2020-07-24 09:30 | Hospitalist Progress Note ---
Date of Service July 24, 2020 Assessment & Plan (1) Pneumonia due to COVID-19 virus: Improvement clinically over the last couple of days with daily decadron and remdesivir (last dose today). Improvement in CRP. Cont supportive care including daily home diuretic therapy. No increased oxygen needs. (2) Sustained ventricular tachycardia: History of ablation status post ICD in October 2019 multiple episodes of sustained tachycardia last year. Has a history of amiodarone therapy which was stopped at the time of ICD placement. Cardiology was consulted for a return of sustained ventricular tachycardia. The patient reports noncompliance with his BiPAP as he has not been able to get any sleep here per his report. He was encouraged to remain compliant as much as possible. We will continue to keep potassium greater than 4 and magnesium greater than 2 and check a daily BMP for this. Several episodes on telemetry overnight and today in setting of pulmonary infection. Initiating amio load now. Cardiology aware of this plan. Recent LFTs and TSH on chart. Patient on warfarin and INR currently supratherapeutic but warfarin on hold. This will likely need to be reduced in setting of amiodarone with known interaction. Daily INR (3) Diabetic ulcer of left foot associated with type 2 diabetes mellitus, with fat layer exposed: He was recently admitted with prolonged hospital stay secondary to a left lateral diabetic neuropathic foot ulcer with deep abscess of the foot. On 06/15 he underwent I&D with wound debridement by Dr. Tiago Bates with subsequent placement of antibiotic beads. Since that time he was followed by wound care and reported compliance with doxycycline, however, he suffered a wound dehiscence. He came back to the ER from wound clinic with wound dehiscence and decompensation of area without sepsis. Wound culture revealed pseudomonas and Daptomycin was eventually stopped with continuation of Zosyn, Day 13 of 14. Wound care this admission evaluated him with new instructions for QOD dressing, ID consulted and recommending two weeks IV antibiotics. He continues on Zosyn at this time with improvement in surrounding LLE cellulitis of the leg. Orthopedics consulted and feels no urgency for repeat debridement at this time. Suggested to continue oral antibiotics but no solid direction on what or for how long. ?touch base again with ID for need for this. Patient will be well followed with wound care closely. Notably, MRI foot last month revealed no evidence of osteomyelitis. (4) Cellulitis of left lower leg: Improved with antibiotic therapy as above. (5) Atrial fibrillation: Coumadin supratherapeutic and currently on hold, cont metoprolol for rate control. (6) Chronic diastolic heart failure: Chronic combined systolic and diastolic CHF appears euvolemic on Torsemide 60 mg twice daily per home regimen. (7) Chronic pain: Typically uses tramadol at home but has been allowed to use oxycodone this admission. Cont PRN, and monitor closely for excessive sleepiness in setting of NINA. (8) Diabetes type 2, uncontrolled: Uncontrolled, with A1C 7.6 and complications including neuropathy. Home insulin pump held on admission and glycemic pharmacist assisting with basal bolus insulin management while hospitalized. (9) Morbid obesity: Lifestyle modifications enforced for goal decreased percent body fat overall. (10) S/P ICD (internal cardiac defibrillator) procedure: (11) DVT prophylaxis: coumadin Full Code Dispo-to home when medically stable. Patient now with amio load starting today, cannot go until cleared by Cardiology. Last scheduled dose IV abx is tomorrow. OK to be discharged from a pulm/COVID standpoint. Consider continued airborne isolation while he is still exhibiting a productive cough. Katharina Flores DO [facility] Hospitalist Admission and Anticipated Discharge Date Admission Date: July 12, 2020 Subjective 54 yo COVID positive man with diabetic foot infection who developed covid pneumonia. -some additional drainage and maceration to wound today per nurse and wound care visit this morning. Dressings changed. -difficulty tolerating CPAP at night because he has an ear issue which causing him ear discomfort with the pressure-has outpatient appt set up to evaluate this -still some productive cough but improved overall -sustained vtach consistently an issue; starting amio load now after conversation with cardio -patient is feeling stronger and looking forward to going home. Review of Systems Review of Systems: All systems reviewed & are unremarkable except as noted in Subjective Physical Exam Physical Exam: CONSTITUTIONAL: morbid obesity, vitals as above, generally well-appearing EYES: normal conjunctivae, no scleral icterus ENT: external ear and nose normal, MMM RESPIRATORY: clear to auscultation bilaterally, no crackles, rales or wheezes, normal respiratory effort CARDIOVASCULAR: regular rate and rhythm, S1 and 2 heard without murmurs, gallops or rubs, no JVD, no peripheral edema GASTROINTESTINAL: soft, nontender, nondistended, no guarding, protuberant, large pannus MUSCULOSKELETAL: sitting in bedside chair, generalized weakness, limited mobility 2/2 illness and body habitus, head is normocephalic and atraumatic SKIN: warm and dry, dry dressing intact covering both wounds, no drainage present. NEUROLOGIC: CN 2-12 grossly intact, normal cognition, no gross focal deficits. PSYCHIATRIC: alert cooperative and oriented to person, place and time. Results & Data Results & Data ([facility]) Vital Signs (Past 12 Hours) Vital Signs Temp Pulse Resp BP Pulse Ox 07/24/20 07:49 36.8 C 84 18 133/79 94 07/24/20 03:22 36.3 C L 80 20 130/80 92 07/23/20 23:58 36.6 C 72 18 127/77 97 Laboratory Results Short CBC 07/24/20 Range/Units 07:03 WBC 6.20 (4.8-10.8) K/uL Hgb 13.2 L (14.0-18.0) g/dL Hct 41.5 L (42-52) % Plt Count 390 (130-400) K/uL BMP 07/24/20 07:03 Sodium 139 Potassium 3.6 Chloride 105 Carbon Dioxide 26 BUN 37 H Creatinine 1.54 H Glucose 99 Calcium 8.9 Medications Administered Current Inpatient Medications Acetaminophen (Acetaminophen 325 Mg Tab) 650 mg PO Q4H PRN PRN Reason: Pain or Fever Stop: 08/11/20 20:04 Last Admin: 07/21/20 08:42 Dose: 650 mg Documented by: Al Hydrox/Mg Hydrox/Simethicone (Aluminum/Magnesium Susp 30 Ml Udc) 15 ml PO Q4H PRN PRN Reason: Dyspepsia Stop: 08/11/20 20:04 Aspirin (Aspirin 81 Mg Ectab) 81 mg PO DAILY MATT Stop: 08/12/20 08:59 Last Admin: 07/23/20 09:30 Dose: 81 mg Documented by: Atorvastatin Calcium (Atorvastatin 40 Mg Tab) 80 mg PO PM MATT Stop: 08/16/20 21:28 Last Admin: 07/23/20 20:03 Dose: 80 mg Documented by: Bisacodyl (Bisacodyl 5 Mg Tabec) 10 mg PO DAILY MATT Stop: 08/17/20 08:59 Last Admin: 07/23/20 09:30 Dose: Not Given Documented by: Clobetasol Propionate (Clobetasol Propionate 0.05% Oint 15 Gm Tube) 1 appln EXT BID MATT Stop: 08/11/20 20:59 Last Admin: 07/23/20 20:04 Dose: Not Given Documented by: Collagenase (Collagenase Oint 30 Gm Tube) 1 appln TOP DAILY MATT Stop: 08/12/20 08:59 Last Admin: 07/23/20 11:58 Dose: Not Given Documented by: Dextrose (Dextrose 50% 50 Ml Syringe) 25 - 50 ml IV UD PRN; Protocol PRN Reason: Hypoglycemia Protocol Stop: 08/11/20 20:04 Last Admin: 07/23/20 08:21 Dose: 25 ml Documented by: Fluticasone Propionate (Fluticasone Propionate Na Spr 16 Gm Btl) 2 sprays DAIN BID PRN PRN Reason: post nasal drip Stop: 08/11/20 20:59 Fluticasone/Vilanterol (Fluticasone/Vilanterol 200/25mcg 14 Puffs/Inhaler) 1 puffs INH DAILY MATT Stop: 08/11/20 20:59 Last Admin: 07/23/20 09:27 Dose: 1 puffs Documented by: Gabapentin (Gabapentin 300 Mg Cap) 300 mg PO TID MATT Stop: 08/11/20 20:59 Last Admin: 07/23/20 20:03 Dose: 300 mg Documented by: Glucagon (Glucagon For Inj 1 Mg Vial) 1 mg SQ UD PRN; Protocol PRN Reason: Hypoglycemia Protocol Stop: 08/11/20 20:04 Glucose (Glucose 10 Tabs/Tube) 4 - 8 tabs PO UD PRN; Protocol PRN Reason: Hypoglycemia Protocol Stop: 08/11/20 20:04 Glucose (Glucose 40% Gel 15 Gm Tube) 15 - 30 gm PO UD PRN; Protocol PRN Reason: Hypoglycemia Protocol Stop: 08/11/20 20:04 Guaifenesin (Guaifenesin 600 Mg Tabcr) 600 mg PO Q12 MATT Stop: 08/14/20 20:59 Last Admin: 07/23/20 20:03 Dose: 600 mg Documented by: Guaifenesin/Dextromethorphan (Guaifenesin/Dextrom Syrup 200mg/20mg 10ml Udc) 10 ml PO Q6H PRN PRN Reason: Cough Stop: 08/22/20 09:15 Hydrocortisone (Hydrocortisone Acetate 25 Mg Supp) 25 mg HI BID PRN PRN Reason: Hemorrhoids Stop: 08/13/20 02:07 Last Admin: 07/18/20 09:16 Dose: 25 mg Documented by: Hyoscyamine (Hyoscyamine Sulfate 0.125 Mg Tab) 0.125 mg PO TID MATT Stop: 08/11/20 20:59 Last Admin: 07/23/20 20:03 Dose: 0.125 mg Documented by: Piperacillin Sod/Tazobactam (Sod 4.5 gm/ Dextrose) 120 mls @ 30 mls/hr IV Q8H [facility]; Protocol Stop: 07/25/20 19:59 Last Admin: 07/24/20 04:33 Dose: 30 mls/hr Documented by: Dexamethasone 6 mg/ Syringe 1.5 mls @ 1 mls/min IV Q24H MATT Stop: 08/19/20 08:59 Last Admin: 07/23/20 09:22 Dose: 1 mls/min Documented by: Remdesivir 100 mg/ Sodium (Chloride) 250 mls @ 250 mls/hr IV Q24H MATT; Protocol Stop: 07/24/20 20:59 Last Infusion: 07/23/20 20:40 Dose: Infused Documented by: Insulin Aspart (Insulin Aspart 100 Units/Ml 3 Ml Pen) 0 units SC 0730 MATT; Protocol Stop: 08/18/20 07:29 Last Admin: 07/23/20 09:18 Dose: 18 units Documented by: Insulin Aspart (Insulin Aspart 100 Units/Ml 3 Ml Pen) 0 units SC 1130,1630 MATT; Protocol Stop: 08/22/20 11:29 Last Admin: 07/23/20 17:51 Dose: Not Given Documented by: Insulin Aspart (Insulin Aspart 100 Units/Ml 3 Ml Pen) 0 units SC 2100 MATT; Protocol Stop: 08/22/20 20:59 Last Admin: 07/23/20 22:00 Dose: Not Given Documented by: Insulin Glargine (Insulin Glargine Solostar 100 Units/Ml 3 Ml Pen) 15 units SQ BID [facility]; Protocol Stop: 08/22/20 08:59 Last Admin: 07/23/20 22:00 Dose: 15 units Documented by: Insulin Human NPH (Insulin Human Nph) 40 units SC DAILY [facility] Stop: 08/22/20 08:59 Last Admin: 07/23/20 09:20 Dose: 40 units Documented by: Ipratropium Commerce (Ipratropium Commerce Neb Soln 0.02% 2.5 Ml Vial) 0.5 mg INH Q2H PRN PRN Reason: Shortness Of Breath Or Wheezing Stop: 08/14/20 19:29 Last Admin: 07/21/20 03:46 Dose: 0.5 mg Documented by: Levalbuterol HCl (Levalbuterol 1.25mg/0.5ml Neb) 1.25 mg INH Q2H PRN PRN Reason: Shortness Of Breath Or Wheezing Stop: 08/14/20 19:29 Last Admin: 07/21/20 03:46 Dose: 1.25 mg Documented by: Levothyroxine Sodium (Levothyroxine Sodium 100 Mcg Tablet) 100 mcg PO DAILYBB [facility] Stop: 08/12/20 06:29 Last Admin: 07/24/20 04:37 Dose: 100 mcg Documented by: Magnesium Hydroxide (Magnesium Hydroxide Susp 30 Ml Udc) 30 ml PO Q12H PRN PRN Reason: Constipation Stop: 08/11/20 20:04 Last Admin: 07/16/20 17:15 Dose: 30 ml Documented by: Magnesium Oxide (Magnesium Oxide 400 Mg Tab) 400 mg PO QAM [facility] Stop: 08/12/20 08:59 Last Admin: 07/23/20 09:29 Dose: 400 mg Documented by: Metoprolol Succinate (Metoprolol Succ 50mg Ext Rel Tab) 100 mg PO BID@0700,1900 [facility] Stop: 08/23/20 06:59 Miscellaneous (Carbohydrates For Hypoglycemia ) 15 - 30 gm PO UD PRN PRN Reason: Hypoglycemia Protocol Stop: 08/11/20 20:04 Last Admin: 07/23/20 08:00 Dose: 15 gm Documented by: Miscellaneous Information (Pharmacy Glycemic Mgmt Consult) 1 ea N/A UD MATT; Protocol Stop: 08/11/20 20:17 Miscellaneous Information (Piperacill/Tazobac Consult Active) 1 ea N/A UD PRN PRN Reason: Consult Stop: 08/17/20 13:53 Nitroglycerin (Nitroglycerin Sl 0.4 Mg/Tab Tab) 0.4 mg SL Q5M PRN PRN Reason: Chest Pain Stop: 08/11/20 20:04 Ondansetron HCl (Ondansetron Inj 2 Mg/Ml 2 Ml Vial) 4 mg IV Q6H PRN PRN Reason: Nausea Stop: 08/11/20 20:04 Oxycodone HCl (Oxycodone Hcl Ir 5 Mg Tab (Immediate Release)) 5 mg PO Q6H PRN PRN Reason: Pain Stop: 07/29/20 08:56 Last Admin: 07/24/20 01:47 Dose: 5 mg Documented by: Pantoprazole Sodium (Pantoprazole 40 Mg Tab) 40 mg PO QAM MATT Stop: 08/12/20 08:59 Last Admin: 07/23/20 09:29 Dose: 40 mg Documented by: Polyethylene Glycol (Polyethylene (Miralax) 17 Gm Pack) 17 gm PO DAILY PRN PRN Reason: Constipation Stop: 08/11/20 20:04 Last Admin: 07/17/20 01:06 Dose: 17 gm Documented by: Potassium Chloride (Potassium Chloride Crtab 20 Meq Tabcr) 40 meq PO BID MATT Stop: 08/23/20 06:39 Last Admin: 07/24/20 06:57 Dose: 40 meq Documented by: Sodium Chloride (Sodium Chloride 0.9% 10ml Flush) 30 ml IV Q24H MATT Stop: 07/24/20 21:01 Last Admin: 07/23/20 21:30 Dose: 30 ml Documented by: Torsemide (Torsemide 20 Mg Tab) 60 mg PO BID MATT Stop: 08/11/20 20:59 Last Admin: 07/23/20 20:03 Dose: 60 mg Documented by: Warfarin Sodium (Warfarin Sod 2 Mg Tab) 2 mg PO DAILY@1600 [facility] Stop: 08/13/20 15:59 Last Admin: 07/23/20 17:46 Dose: Not Given Documented by: Zolpidem Tartrate (Zolpidem Tartrate 5 Mg Tab) 5 mg PO HS PRN PRN Reason: Sleep Stop: 08/11/20 20:04 Last Admin: 07/20/20 01:15 Dose: 5 mg Documented by:
[2020-07-24] MEDS: METOPROLOL SUCC 50MG EXT REL TAB PO SCH ×2 (09:38→19:46)
[2020-07-24] MEDS: INSULIN ASPART 100 UNITS/ML 3 ML PEN SC SCH ×4 (09:39→21:28)
[2020-07-24] MEDS: INSULIN GLARGINE SOLOSTAR 100 UNITS/ML 3 ML PEN SQ SCH (09:40)
[2020-07-24] MEDS: MAGNESIUM OXIDE 400 MG TAB PO SCH (11:27)
[2020-07-24] MEDS: FLUTICASONE/VILANTEROL 200/25MCG 14 PUFFS/INHALER INH SCH (11:28)
[2020-07-24] MEDS: PANTOprazole 40 MG TAB PO SCH (11:29)
[2020-07-24] MEDS: TORSEMIDE 20 MG TAB PO SCH ×2 (11:29→19:48)
[2020-07-24] MEDS: GABAPENTIN 300 MG CAP PO SCH ×3 (11:30→19:51)
[2020-07-24] MEDS: HYOSCYAMINE SULFATE 0.125 MG TAB PO SCH ×3 (11:31→19:50)
[2020-07-24] MEDS: ASPIRIN 81 MG ECTAB PO SCH (11:32)
[2020-07-24] MEDS: guaiFENesin 600 MG TABCR PO SCH ×2 (11:33→19:50)
[2020-07-24] MEDS: guaiFENesin/DEXTROM SYRUP 200MG/20MG 10ML UDC PO PRN (11:34)
[2020-07-24] MEDS: bisacodyL 5 MG TABEC PO SCH (11:35)
[2020-07-24] MEDS: COLLAGENASE OINT 30 GM TUBE TOP SCH (11:35)
[2020-07-24] MEDS: dexAMETHasone 6 MG in SYRINGE 0 ML IV SCH (11:35)
[2020-07-24] MEDS: CLOBETASOL PROPIONATE 0.05% OINT 15 GM TUBE EXT SCH ×2 (11:35→19:50)
[2020-07-24] MEDS: AMIODARONE 200 MG TAB PO SCH (17:49)
[2020-07-24] MEDS: REMDESIVIR 100 MG in SODIUM CHLORIDE 0.9% 230 ML IV SCH (19:44)
[2020-07-24] MEDS: ATORVASTATIN 40 MG TAB PO SCH (19:49)
[2020-07-24] MEDS ORDERED: INSULIN GLARGINE SOLOSTAR 100 UNITS/ML 3 ML PEN SQ SCH (21:00)
[2020-07-24] MEDS: SODIUM CHLORIDE 0.9% 10ML FLUSH IV SCH (21:15)
[2020-07-25] MEDS: PIPERACILLIN/TAZOBACTAM 4.5 GM in DEXTROSE 5% 100 ML IV SCH ×2 (04:08→12:14)
[2020-07-25] MEDS: LEVOTHYROXINE SODIUM 100 MCG TABLET PO SCH (05:34)
[2020-07-25] MEDS: oxyCODONE HCL IR 5 MG TAB (IMMEDIATE RELEASE) PO PRN (05:34)
[2020-07-25 07:40] LABS: Hematocrit (blood only) 41.3 % (42-52); Hemoglobin 13.2 g/dL (14.0-18.0); Mean Corpuscular Hemoglobin 27.4 pg (25-34); Mean Corpuscular Volume 85.7 fL (80-100); Mean Platelet Volume 9.7 fL (7.4-10.4); Platelet Count 415 K/uL (130-400); RDW Coefficient of Variation 17.6 % (11.5-14.5); RDW Standard Deviation 54.6 fL (36.4-46.3); Red Blood Count 4.82 M/uL (4.7-6.1); White Blood Count 7.54 K/uL (4.8-10.8)
[2020-07-25 08:04] LABS: INR 4.2 (0.9-1.1); Prothrombin Time 38.2 Seconds (9.0-12.0)
[2020-07-25 08:09] LABS: BUN Creatinine Ratio 28.2 (10-20); C Reactive Protein 1.04 mg/dl (0-0.29); Calcium 8.6 mg/dl (8.5-10.1); Creatinine Clr Calc Pharmacy 93.9 ml/min; Est GFR (African American) 64.6; Est GFR (Non-African American) 55.8; Magnesium 2.2 mg/dl (1.8-2.4); Potassium 3.4 mmol/L (3.5-5.1)
[2020-07-25] MEDS: MAGNESIUM OXIDE 400 MG TAB PO SCH (08:58)
[2020-07-25] MEDS: ASPIRIN 81 MG ECTAB PO SCH (08:59)
[2020-07-25] MEDS: TORSEMIDE 20 MG TAB PO SCH (08:59)
[2020-07-25] MEDS: POTASSIUM CHLORIDE CRTAB 20 MEQ TABCR PO SCH (09:00)
[2020-07-25] MEDS ORDERED: INSULIN GLARGINE SOLOSTAR 100 UNITS/ML 3 ML PEN SQ SCH ×2 (09:00→21:00)
[2020-07-25] MEDS: GABAPENTIN 300 MG CAP PO SCH ×2 (09:00→13:49)
[2020-07-25] MEDS: HYOSCYAMINE SULFATE 0.125 MG TAB PO SCH ×2 (09:00→13:48)
[2020-07-25] MEDS: guaiFENesin 600 MG TABCR PO SCH (09:01)
[2020-07-25] MEDS: guaiFENesin/DEXTROM SYRUP 200MG/20MG 10ML UDC PO PRN (09:02)
[2020-07-25] MEDS: PANTOprazole 40 MG TAB PO SCH (09:02)
[2020-07-25] MEDS: COLLAGENASE OINT 30 GM TUBE TOP SCH (09:03)
[2020-07-25] MEDS: METOPROLOL SUCC 50MG EXT REL TAB PO SCH (09:04)
[2020-07-25] MEDS: dexAMETHasone 6 MG in SYRINGE 0 ML IV SCH (09:05)
[2020-07-25] MEDS: AMIODARONE 200 MG TAB PO SCH ×2 (09:06→12:17)
[2020-07-25] MEDS: INSULIN HUMAN NPH SC SCH (09:07)
[2020-07-25] MEDS: FLUTICASONE/VILANTEROL 200/25MCG 14 PUFFS/INHALER INH SCH (09:07)
[2020-07-25] MEDS: INSULIN ASPART 100 UNITS/ML 3 ML PEN SC SCH ×2 (09:09→12:15)
[2020-07-25] MEDS: bisacodyL 5 MG TABEC PO SCH (09:11)
[2020-07-25] MEDS: CLOBETASOL PROPIONATE 0.05% OINT 15 GM TUBE EXT SCH (09:16)
--- NOTE | 2020-07-25 14:43 | Pharmacy Report ---
Pharmacy Glycemic Short Note 2 - Date of Service July 25, 2020 - Glycemic Short BSG Results (Last 24 hours): 07/24/20 07/24/20 07/25/20 16:05 20:59 06:32 Glucose 102 H POC Glucose 257 H 267 H 07/25/20 07/25/20 08:01 12:16 Glucose POC Glucose 96 168 H OUTPATIENT ANTIDIABETIC REGIMEN: * Toujeo/Humalog listed along with Novolog pump - clarified with patient. He is only on pump as follows: * 9.4 units/hr basal * CHO coverage at 1 unit for every ~1-3 g CHO consumed * Additional correction based on "trends" - patient tired on interview and not willing/able to discuss further * Jardiance * Trulicity * HbA1c 8.1% on 06/13/20 ASSESSMENT: 07/25: * Patient received total of 89 units of insulin yesterday, of which 65 units were basal insulin * Fasting BSG 102 mg/dL - continue same basal, may loosen CF at bedtime * Contine same CF/CR PLAN FOR INPATIENT GLYCEMIC CONTROL: * Hold all outpatient diabetes medications * Basal insulin * Lantus 15 units Qam, 10 units Qpm * NPH 40 units SQ daily - to be given with dexamethasone * Bolus insulin - no change * NovoLog per scale ACHS or Q6hrs while NPO * Goal Range: Low 110 mg/dL - High 140 mg/dL * Breakfast, lunch, dinner - Correction Factor: 15 mg/dL/unit; Nutritional / Prandial insulin per carb ratio of 1 unit per 5 grams CHO consumed * HS - Correction Factor: 30 mg/dL/unit; Nutritional / Prandial insulin per carb ratio of 1 unit per -- grams CHO consumed PLAN FOR DISCHARGE: * Most recent HbA1c is 7.6% which is almost at goal and improving from previous HbA1c's. Continue outpatient regimen upon discharge.
--- NOTE | 2020-07-25 14:51 | Hospitalist Progress Note ---
Date of Service July 25, 2020 Assessment & Plan (1) Pneumonia due to COVID-19 virus: Improvement clinically over the last couple of days with daily Decadron and remdesivir ( completed 5/5 days tx ) . Improvement in CRP. No increased oxygen needs. (2) Sustained ventricular tachycardia: History of ablation status post ICD in October 2019 . Cardiology consult appreciated started on Amiodarone , dose reduced to 200 mg PO BID Pt/INR and Coumadin dose needs to be monitored closely for interaction (3) Diabetic ulcer of left foot associated with type 2 diabetes mellitus, with fat layer exposed: * He was recently admitted with prolonged hospital stay secondary to a left lateral diabetic neuropathic foot ulcer with deep abscess of the foot. * On 06/15 he underwent I&D with wound debridement by Dr. Tiago Bates with subsequent placement of antibiotic beads. * sent to ER from wound clinic with wound dehiscence and decompensation of area without sepsis. * Wound culture revealed pseudomonas , MRI foot last month revealed no evidence of osteomyelitis. * ID consulted and recommending two weeks IV antibiotics. treated with IV Zosyn, Day 14 of 14. * Wound care this admission evaluated him with new instructions for QOD dressing, * Orthopedics consulted and feels no urgency for repeat debridement at this time. * pt refuses to go to rehab * discharged home - Patient will be well followed with wound care closely -wound clinic follow up scheduled (4) Cellulitis of left lower leg: Improved with antibiotic therapy as above. (5) Atrial fibrillation: cont metoprolol for rate control Coumadin supratherapeutic > 4 and currently on hold, started on Amiodarone , Pt/INR and Coumadin dose needs to be monitored closely for interaction (6) Chronic diastolic heart failure: Chronic combined systolic and diastolic CHF appears euvolemic on Torsemide 60 mg twice daily per home regimen. (7) Chronic pain: Typically uses tramadol at home but has been allowed to use oxycodone this admission. Cont PRN, and monitor closely for excessive sleepiness in setting of NINA. (8) Diabetes type 2, uncontrolled: Uncontrolled, with A1C 7.6 and complications including neuropathy. Home insulin pump held on admission and glycemic pharmacist assisting with basal bolus insulin management while hospitalized. (9) Morbid obesity: Lifestyle modifications enforced for goal decreased percent body fat overall. (10) S/P ICD (internal cardiac defibrillator) procedure: (11) DVT prophylaxis: INR elevated Full Code Disposition: pt is discharged home today refused to go to rehab Admission and Anticipated Discharge Date Admission Date: July 12, 2020 Subjective follow up visit for diabetic foot infection/covid 19 pneumonia /Vtach arrhythmia : pt reports feeling fine today no cough or SOB no complain of pain on left foot , swelling improved insists on going home today has outstanding referral to [facility] , refuses to go to rehab says he has scripts for wheel chair and knee scooter , will follow instruction for offloading on left foot wants to return to home , spoke with over phone , in agreement with pt's returning home with home health and out patient wound care follow up Review of Systems Review of Systems: All systems reviewed & are unremarkable except as noted in Subjective Physical Exam Constitutional: WD/WN, vitals as above + obese Eyes: PERRL, conjunctivae normal, anicteric sclerae Respiratory: Auscultation: + diminished lung sounds and + rales Cardiovascular: Rate/Rhythm: regular rate and regular rhythm Extremities: + edema Gastrointestinal (Abdomen): Inspection/Auscultation: + abdomen distended Percussion/Palpation: abdomen soft; abdomen nontender Musculoskeletal: Extremities: + foot abnormality (open wound on left foot has bandage present ) Left Neurologic: PERRL, EOMI, accommodation nl, no face palsy, no dysarthria Psychiatric: A+Ox3, euthymic affect Results & Data Results & Data ([facility]) Vital Signs (Past 12 Hours) Vital Signs Temp Pulse Pulse Pulse Resp BP BP 07/25/20 11:45 36.8 C 76 18 149/87 H 07/25/20 09:51 67 07/25/20 07:28 36.4 C L 75 18 127/78 07/25/20 03:38 36.7 C 99 H 18 131/91 Pulse Ox 07/25/20 11:45 94 07/25/20 09:51 07/25/20 07:28 94 07/25/20 03:38 98
[2020-07-25] MEDS ORDERED: POTASSIUM CHLORIDE CRTAB 20 MEQ TABCR PO STA (14:54)
[2020-07-25] MEDS ORDERED: INSULIN ASPART 100 UNITS/ML 3 ML PEN SC SCH (16:30)
--- NOTE | 2020-07-26 09:07 | Discharge Summary ---
Date of Service July 26, 2020 Principal Diagnosis COVID 19 INFECTION * LEFT FOOT DIABETIC NON HEALING WOUND * NON SUSTAINED VTCH * CHRONIC AFIB ON COUMADIN * TYPE 2 DIABETES Discharge Exam Constitutional WD/WN, vitals as above + obese Eyes PERRL, conjunctivae normal, anicteric sclerae Respiratory Auscultation: + diminished lung sounds and + rales Cardiovascular Rate/Rhythm: regular rate and regular rhythm Extremities: + edema Gastrointestinal (Abdomen) Inspection/Auscultation: + abdomen distended Percussion/Palpation: abdomen soft; abdomen nontender Musculoskeletal Extremities: + foot abnormality (open wound on left foot has bandage present ) Neurologic PERRL, EOMI, accommodation nl, no face palsy, no dysarthria Psychiatric A+Ox3, euthymic affect Discharge Data Allergies Allergy/AdvReac Type Severity Reaction Status Date / Time benzonatate AdvReac Intermediate choking, Verified 07/12/20 14:54 gagging Consultations 07/12/20 17:26 ED Decision to Admit Stat 07/12/20 17:39 Consult Orthopedic Surgery Routine 07/12/20 18:41 Consult Infectious Diseases Routine 07/22/20 10:26 Consult Cardiology Routine Ordered Studies 07/12/20 16:44 US venous doppler LE LT Stat 07/13/20 01:48 US arterial duplex LE LT Urgent Hospital Course (1) Pneumonia due to COVID-19 virus: Improvement clinically over the last couple of days with daily Decadron and remdesivir ( completed 5/5 days tx ) . Improvement in CRP. No increased oxygen needs. (2) Sustained ventricular tachycardia: History of ablation status post ICD in October 2019 . Cardiology consult appreciated started on Amiodarone , dose reduced to 200 mg PO BID Pt/INR and Coumadin dose needs to be monitored closely for interaction (3) Diabetic ulcer of left foot associated with type 2 diabetes mellitus, with fat layer exposed: * He was recently admitted with prolonged hospital stay secondary to a left lateral diabetic neuropathic foot ulcer with deep abscess of the foot. * On 06/15 he underwent I&D with wound debridement by Dr. Tiago Bates with subsequent placement of antibiotic beads. * sent to ER from wound clinic with wound dehiscence and decompensation of area without sepsis. * Wound culture revealed pseudomonas , MRI foot last month revealed no evidence of osteomyelitis. * ID consulted and recommending two weeks IV antibiotics. treated with IV Zosyn, Day 14 of 14. * Wound care this admission evaluated him with new instructions for QOD dressing, * Orthopedics consulted and feels no urgency for repeat debridement at this time. * pt refuses to go to rehab * discharged home - Patient will be well followed with wound care closely -wound clinic follow up scheduled (4) Cellulitis of left lower leg: Improved with antibiotic therapy as above. (5) Atrial fibrillation: cont metoprolol for rate control Coumadin supratherapeutic > 4 and currently on hold, started on Amiodarone , Pt/INR and Coumadin dose needs to be monitored closely for interaction (6) Chronic diastolic heart failure: Chronic combined systolic and diastolic CHF appears euvolemic on Torsemide 60 mg twice daily per home regimen. (7) Chronic pain: Typically uses tramadol at home but has been allowed to use oxycodone this admission. Cont PRN, and monitor closely for excessive sleepiness in setting of NINA. (8) Diabetes type 2, uncontrolled: Uncontrolled, with A1C 7.6 and complications including neuropathy. Home insulin pump held on admission and glycemic pharmacist assisting with basal bolus insulin management while hospitalized. (9) Morbid obesity: Lifestyle modifications enforced for goal decreased percent body fat overall. (10) S/P ICD (internal cardiac defibrillator) procedure: (11) DVT prophylaxis: INR elevated Full Code Disposition: pt is discharged home today refused to go to rehab Total Time Total Time Spent Total Time Spent (In Minutes): 40 mins Total Time Includes: Examination of the Patient, Discharge Planning, Medication Reconciliation and Communication With Other Providers Discharge Plan Discharge Items Patient Disposition: Home - Home Health Services Reason For Visit: L FOOT INFECTION Discharge Diagnosis: * COVID 19 INFECTION * LEFT FOOT DIABETIC NON HEALING WOUND * NON SUSTAINED VTCH * CHRONIC AFIB ON COUMADIN * TYPE 2 DIABETES Activity: Per Instructions section Weightbearing: Left non-weightbearing Non-emergency contact: Primary Care Provider Call non-emergency contact if: you have any medication questions Follow-up/Referrals: Bg Bates DO [Surgeon] - 08/02/20 9:50 am (Ortho follow up at the above noted date/time. Must wear a mask at all times in the office. Pt cannot have anyone escorting him into the exam room. ) Sherry Maya DO [Primary Care Provider] - 08/01/20 11:00 am (Date & Time 08/01/2020 11:10 AM Provider Sherry Maya DO Department [facility] PLEASE NOTE THAT THIS IS A TELEVIDEO APPOINTMENT. PLEASE FOLLOW THE DIRECTIONS PROVIDED IN YOUR EMAIL. IF YOU HAVE ANY QUESTIONS REGARDING THIS APPOINTMENT, PLEASE CALL ) Helen Dumont DO [Physician] - (cardiology follow up in 3-4 weeks ) Diet: Carb Consistent or DM2 and Heart Healthy Addtl Attending Provider Instructions: Please take all medications as instructed on discharge list below. It is recommended that you follow-up with your primary care physician within 1-2 weeks of hospital discharge to ensure you are still doing well. Please call if you have any questions or problems. You can reach a [facility] hospitalist on duty at [facility] 24 hours a day by calling [phone] Home Isolation COVID-19 Instructions The following information about Home Isolation is from the CDC Website: https://www.cdc.gov/coronavirus/2019-ncov/hcp/muyuzoge-cgqxjsl-jseldg.html Stay home except to get medical care People who are mildly ill with COVID-19 are able to isolate at home during their illness. You should restrict activities outside your home, except for getting medical care. Do not go to work, school, or public areas. Avoid using public transportation, ride-sharing, or taxis. Separate yourself from other people and animals in your home People: As much as possible, you should stay in a specific room and away from other people in your home. Also, you should use a separate bathroom, if available. Animals: You should restrict contact with pets and other animals while you are sick with COVID-19, just like you would around other people. Although there have not been reports of pets or other animals becoming sick with COVID-19, it is still recommended that people sick with COVID-19 limit contact with animals until more information is known about the virus. When possible, have another member of your household care for your animals while you are sick. If you are sick with COVID-19, avoid contact with your pet, including petting, snuggling, being kissed or licked, and sharing food. If you must care for your pet or be around animals while you are sick, wash your hands before and after you interact with pets and wear a face mask. Call ahead before visiting your doctor If you have a medical appointment, call the healthcare provider and tell them that you have or may have COVID-19. This will help the healthcare providers office take steps to keep other people from getting infected or exposed. Wear a face mask You should wear a face mask when you are around other people (e.g., sharing a room or vehicle) or pets and before you enter a healthcare providers office. If you are not able to wear a face mask (for example, because it causes trouble breathing), then people who live with you should not stay in the same room with you, or they should wear a face mask if they enter your room. Cover your coughs and sneezes Cover your mouth and nose with a tissue when you cough or sneeze. Throw used tissues in a lined trash can. Immediately wash your hands with soap and water for at least 20 seconds or, if soap and water are not available, clean your hands with an alcohol-based hand sales development specialist that contains at least 60% alcohol. Clean your hands often Wash your hands often with soap and water for at least 20 seconds, especially after blowing your nose, coughing, or sneezing; going to the bathroom; and before eating or preparing food. If soap and water are not readily available, use an alcohol-based hand sales development specialist with at least 60% alcohol, covering all surfaces of your hands and rubbing them together until they feel dry. Soap and water are the best option if hands are visibly dirty. Avoid touching your eyes, nose, and mouth with unwashed hands. Avoid sharing personal household items You should not share dishes, drinking glasses, cups, eating utensils, towels, or bedding with other people or pets in your home. After using these items, they should be washed thoroughly with soap and water. Clean all high-touch surfaces everyday High touch surfaces include counters, tabletops, doorknobs, bathroom fixtures, toilets, phones, keyboards, tablets, and bedside tables. Also, clean any surfaces that may have blood, stool, or body fluids on them. Use a household cleaning spray or wipe, according to the label instructions. Labels contain instructions for safe and effective use of the cleaning product including precautions you should take when applying the product, such as wearing gloves and making sure you have good ventilation during use of the product. Monitor your symptoms Seek prompt medical attention if your illness is worsening (e.g., difficulty breathing).Beforeseeking care, call your healthcare provider and tell them that you have, or are being evaluated for, COVID-19. Put on a face mask before you enter the facility. These steps will help the healthcare providers office to keep other people in the office or waiting room from getting infected or exposed. Ask your healthcare provider to call the local or state health department. Persons who are placed under active monitoring or facilitated self- monitoring should follow instructions provided by their local health department or occupational health professionals, as appropriate. When working with your local health department check their available hours. If you have a medical emergency and need to call 911, notify the dispatch personnel that you have, or are being evaluated for COVID-19. If possible, put on a face mask before emergency medical services arrive. Discontinuing home isolation Patients with confirmed COVID-19 should remain under home isolation precautions until the risk of secondary transmission to others is thought to be low. The decision to discontinue home isolation precautions should be made on a [id number] basis, in consultation with healthcare providers and [facility] and local health departments. Addtl Poker Prop Player Provider Instructions: YOUR INR 4.2 TODAY ( INTERACTS WITH AMIODARONE ) DO NOT TAKE COUMADIN TODAY AND TOMORROW INR CHECK ON THURSDAY , COUMADIN DOSE WILL BE ADJUSTED BY COUMADIN CLINIC Follow up at Wound clinic as scheduled IT IS VERY IMPORTANT FOR YOU TO KEEP LEFT FOOT COMPLETE NON WEIGHT BEARING FOR HEALING ACTIVITY RECOMMENDATIONS: * You may place as much weight as is comfortable on your foot using the shoe provided unless you are instructed otherwise. SPECIAL CARE INSTRUCTIONS: * Some drainage onto the dressing is normal and is no cause for alarm. * Some swelling is natural especially after walking. When resting, keep your foot elevated above the level of your heart. * Call the doctor's office at if you notice increased drainage, fever over 101 degrees F. or severe constant pain. BANDAGE: * Change your dressing daily to assess your surgical wound and ulcer. Dressing change of the ulcer as per wound care recommendations. Your surgical wound can have a dry dressing on it. If it continues to remain without drainage, you may go to every other day dressing changes * Keep bandage/cast dry at all times. FOLLOW UP VISIT: If appointment is not already scheduled: Please call [facility] to make a follow-up appointment after your surgery at . Pending Studies at Discharge: No Stand-Alone Forms: My [facility] BUX, Smoking Cessation Medications and DC Order Prescriptions: New amiodarone 200 mg tablet 200 mg PO BID Qty: 60 RF: 0 Continued fluticasone propionate [Flonase Allergy Relief] 50 mcg/actuation spray,suspension 2 sprays INTNAS BID RF: 0 levothyroxine 100 mcg capsule 100 mcg PO QAM RF: 0 magnesium oxide 400 mg capsule 400 mg PO QAM RF: 0 mometasone-formoterol [Dulera] 200-5 mcg/actuation HFA aerosol inhaler 2 puffs INH BID RF: 0 nitroglycerin 0.4 mg tablet, sublingual 0.4 mg SL Q5M PRN (Reason: Chest Pain) RF: 0 omeprazole 20 mg capsule,delayed release(DR/EC) 20 mg PO QAM RF: 0 tramadol 50 mg tablet 50 mg PO Q6H PRN (Reason: pain) RF: 0 Lac-Hydrin Five 5 % lotion 1 applic topical DAILY PRN (Reason: dry skin) Qty: 226 RF: 2 Trulicity 1.5 mg/0.5 mL pen injector 1.5 mg SQ WK RF: 0 Santyl 250 unit/gram ointment 1 applic topical DAILY Qty: 90 RF: 2 hydrocodone-acetaminophen 10-325 mg/15 mL(15 mL) solution 15 ml PO Q8H PRN (Reason: Pain) RF: 0 (DME) blood-glucose meter [OneTouch Verio Flex meter] Misc See Rx Instructions .ROUTE .MEDSUPPLY Qty: 1 RF: 0 insulin aspart U-100 [Novolog U-100 Insulin aspart] 100 unit/mL solution See Rx Instructions continuous subcutaneous infusion DAILY Qty: 12 RF: 5 hyoscyamine sulfate [Levsin] 0.125 mg Tablet 0.125 mg PO TID RF: 0 gabapentin 300 mg Capsule 300 mg PO TID RF: 0 ergocalciferol (vitamin D2) 2,500 unit Capsule 50,000 unit PO WK RF: 0 albuterol sulfate [Ventolin HFA] 90 mcg/actuation Hfa Aerosol Inhaler 2 puff INHALATION QID PRN (Reason: SHORT OF BREATH) RF: 0 atorvastatin 80 mg tablet 80 mg PO PM RF: 0 clobetasol 0.05 % cream 1 applic TOPICAL BID RF: 0 potassium chloride 10 mEq tablet,ER particles/crystals 20 meq PO QAM RF: 0 aspirin 81 mg Tablet,Delayed Release (Dr/Ec) 81 mg PO DAILY RF: 0 metoprolol succinate 50 mg Tablet Extended Release 24 Hr 50 mg PO QPM 30 Days Qty: 30 RF: 0 metoprolol succinate 25 mg Tablet Extended Release 24 Hr 75 mg PO QAM 30 Days Qty: 90 RF: 0 torsemide 20 mg tablet 60 mg PO BID Qty: 180 RF: 0 warfarin 1 mg tablet 1 - 2 mg PO UD RF: 0 Discontinued doxycycline hyclate 100 mg tablet 100 mg PO bid Qty: 28 RF: 0 Discharge Orders: Discharge Order (Routine); Ordered 07/25/20 Ordered By: Arcelia Kang/Other Patient Handouts: Using Blood Thinners (Anticoagulants), 2019- nCoV, Managing Type 2 Diabetes, Managing Diabetes: The A1C Test Admission Data Admit Date/Time: 07/12/20 17:39 Attending Provider: Arcelia Forrester Admit Provider: Arcelia Forrester Primary Care Provider: Sherry Maya Other Providers: [facility] ; Arcelia Forrester ; Pierre Sarah ; Kirk Torres ; Adolph Canales ; Alberto Payne I. ; Husam Perkins II ; Sherry Prakash ; Declan Reynoso ; Girma Casas ; [facility] ; Katharina Flores Other Interventions: Discharge Summary Assessment (RN) Last Done: 07/25/20 14:54
== END 2020-07-25 16:38 | disposition home health service (06) | DRG 919 ==
LOC: ED 15:46 → SUATTDRO 17:39 → 2W 17:39 → 2S 07-17 20:55

== ENCOUNTER 2020-08-01 11:58 | Inpatient (IN) ==
[2020-08-01] MEDS ORDERED: PIPERACILL/TAZOBAC CONSULT ACTIVE PRN ×2 (13:15→17:28)
[2020-08-01] MEDS ORDERED: DAPTOmycin 675 MG in SYRINGE 0 ML IV ONE ×2 (13:15→17:28)
[2020-08-01] MEDS ORDERED: PIPERACILLIN/TAZOBACTAM 4.5 GM/120 ML BAG IV ONE (13:15)
--- NOTE | 2020-08-01 13:58 | History & Physical Report ---
Date of Service August 01, 2020 Assessment & Plan (1) Traumatic open wound of left lower leg: - Admit to med surg - Wound consulted - Left foot imaging concerning 1. There is diffuse soft tissue edema with subcutaneous gas identified along the lateral aspect of foot. - consider MRI - note pt has ICD placement - [facility] - Consult Ortho, Dr. Bates for debridement - Consider consultation with cardiology, Dr. Adams for recent arterial duplex studies performed July 13, 2020, would also benefit from bilateral venous reflux studies performed as cards outpatient - pt has been unable to see him as outpt yet - Follow cultures from 08/01 at wound clinic - Follow BCx x 2 - Cont IV daptomycin for MRSA coverage and Zosyn for pseudomonal coverage - previous wound RLE culture grew out Pseudomonas and the patient completed 14- day course of IV Zosyn during last admission. - COVID + on admission but was positive on 07/12, will be 21 days out on 08/02. Pt is asymptomatic currently so does not require isolation precautions. (2) Diabetic ulcer of right foot: -Wound consulted as above -Continue Aquacel AG dressing to the wound per wound recommendations -Elevate the legs as tolerated for edema (3) Cellulitis of left lower leg: -IV antibiotics as above -Imaging reviewed -Ortho to possibly debride - consider transfer to tertiary care if needed for surgical debridement. (4) Sustained ventricular tachycardia: -History of such, follows with cardiology, continue on p.o. amiodarone 200 mg BID (5) Chronic diastolic heart failure: -Continue torsemide 60 mg twice daily, ASA 81 mg daily, atorvastatin 80 mg qPM -Volume status appears euvolemic currently -Pt missed morning dose of torsemide today (6) CAD (coronary artery disease): -Continue torsemide 60 mg twice daily, ASA 81 mg daily, atorvastatin 80 mg qPM (7) S/P ICD (internal cardiac defibrillator) procedure: -History of such (8) Atrial fibrillation: -Rate control with amiodarone, continue Coumadin, follow daily INR, currently subtherapeutic at 1.5. Give 2 mg tonight. -Coumadin scheduled daily but will need to adjust based off of INR. (9) Hypertension: -BP is currently stable at 140/77, continue antihypertensives as listed above (10) Asthma: - Currently has O2 sats at 96% on RA - continue Ventolin prn, mometasone formoterol inh BID (11) Dyslipidemia: -Statin therapy as above (12) CKD (chronic kidney disease) stage 3, GFR 30-59 ml/min: -Follow creatinine with a.m. BMP, baseline of 1.5-1.7, 1.47 on admission. (13) Diabetes type 2, uncontrolled: -Last A1c 7.6, uncontrolled -Following with Dr. Euceda as an outpatient -Cont home CGM and insulin pump, glycemic pharmacist consulted during admission, continue ISS with ACHS glucose monitoring (14) Diabetic peripheral neuropathy associated with type 2 diabetes mellitus: -PT/OT consult (15) Morbid obesity: -We will encourage lifestyle modifications including diet and exercise during admission (16) Vitamin D deficiency: -Continue supplementation (17) Depression: - Does not appear to be on any antidepressants. Would consider wellbutrin for mood improvement as well as benefit of weight loss with the stimulating effects of this medication - can discuss with day team or PCP after dc. (18) Hypothyroidism: -Continue levothyroxine 100 mcg daily (19) DVT prophylaxis: -Coumadin, no mechanical DVT prophylaxis secondary to multiple lower extremity wounds CODE: Full Dispo: From home, likely to remain in the hospital x 2 days. History of Present Illness Primary Care Provider: Sherry Maya DO This is a 54 yo M with PMHx of left foot diabetic nonhealing chronic wound, DM type II, episode of sustained V. tach, chronic A. fib on Coumadin, chronic diastolic heart failure, status post ICD placement, morbid obesity, hypothyroidism, and Vit D deficiency. Pt presents to ER from wound clinic after evaluation of a new left lateral leg wound and concern for worsening cellulitis sustained from unknown trauma, within the past week, and now has an open wound of the left lateral lower leg. Redness seems to progress up to above the knee, is warm to touch, however he can only feel pressure due to diabetic neuropathy at the level of the mid mcknight. He was seen in clinic for unstageable diabetic ulcer of the right lateral foot which he reports is healing. Wounds were dressed with Aquacel Ag. And was referred to the ER for worsening cellulitis. He denies any fevers, chills or sweats. He denies any worsening pain and has been walking with use of a walker at home. After his hospitalization last time he was referred to rehab however refused. 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 He reports that he has been on long-term antibiotics before and would be willing to do that at home in hopes that he does not have a prolonged hospitalization again. During his last hospital stay he was Covid positive and therefore was unable to see Dr. Bates for left heel wound or Dr. Adams in regards to venous reflux studies. Patient is ultimately concerned that he will not get to see the specialties again because he continues to be COVID-19 positive on nasal swab. Pt had recent COVID-19 infection with superimposed pneumonia where he was h ospitalized from 07/12/20-07/26/20 treated with Decadron and remdesivir. Prior to this recent hospitalization he was admitted from 06/13/2020- 06/30/2020 for sustained V. tach and group B streptococcus bacteremia from right leg right lower extremity cellulitis. Allergies Allergy/AdvReac Type Severity Reaction Status Date / Time benzonatate AdvReac Intermediate choking, Verified 07/31/20 11:44 gagging Home Medications Medication Instructions Recorded Confirmed Type fluticasone propionate 50 2 sprays INTNAS BID gm 12/21/17 08/01/20 History mcg/actuation nasal spray,suspension levothyroxine 100 mcg capsule 100 mcg PO QAM 12/21/17 08/01/20 History magnesium oxide 400 mg PO QAM cap 12/21/17 08/01/20 History mometasone-formoterol HFA 200 2 puffs INH BID 12/21/17 08/01/20 History mcg-5 mcg/actuation aerosol inhaler nitroglycerin 0.4 mg sublingual 0.4 mg SL Q5M PRN 12/21/17 08/01/20 History tablet omeprazole 20 mg capsule,delayed 20 mg PO QAM 12/21/17 08/01/20 History release tramadol 50 mg tablet 50 mg PO Q6H PRN 12/21/17 08/01/20 History ergocalciferol (vitamin D2) 50,000 unit PO WK 04/12/19 08/01/20 History gabapentin 300 mg PO TID 04/12/19 08/01/20 History hyoscyamine sulfate [Levsin] 0.125 mg PO TID 04/12/19 08/01/20 History atorvastatin 80 mg PO PM 01/18/20 08/01/20 History clobetasol 1 applic TOPICAL BID 01/18/20 08/01/20 History potassium chloride 20 meq PO QAM 01/18/20 08/01/20 History blood-glucose meter #1 ea 02/21/20 08/01/20 Rx insulin aspart U-100 100 unit/mL See Rx Instructions CONTINUOUS 02/29/20 08/01/20 Rx subcutaneous solution SUBCUTANEOUS INFUSION DAILY #12 ml ammonium lactate 5 % lotion 1 applic TOPICAL DAILY PRN #226 g 04/19/20 08/01/20 Rx dulaglutide 1.5 mg/0.5 mL 1.5 mg SQ WK ml 05/03/20 08/01/20 History subcutaneous pen injector albuterol sulfate [Ventolin HFA] 2 puff INHALATION QID PRN 05/30/20 08/01/20 History aspirin 81 mg PO DAILY 06/12/20 08/01/20 History torsemide 60 mg PO BID #180 tab 06/29/20 08/01/20 Rx hydrocodone 10 mg-acetaminophen 15 ml PO Q8H PRN 07/12/20 08/01/20 History 325 mg/15 mL (15 mL) oral solution warfarin 1 - 2 mg PO UD 07/12/20 08/01/20 History amiodarone 200 mg PO BID #60 tab 07/25/20 08/01/20 Rx doxycycline hyclate 100 mg capsule 100 mg PO BID 07/31/20 08/01/20 History Past Med/Surg History Medical History Arthritis Asthma well controlled, 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 Bacteremia due to group B Streptococcus CAD (coronary artery disease) Cardiac defibrillator in situ 2007 with replacement 03/2020. follows with Dr. Maya. CKD (chronic kidney disease) stage 3, GFR 30-59 ml/min Deformity of foot Depression Diabetes type 2, uncontrolled Diabetic peripheral neuropathy associated with type 2 diabetes mellitus Dyslipidemia GERD (gastroesophageal reflux disease) H/O osteomyelitis History of diabetic ulcer of foot Hx of myocardial infarction found on testing Hx of osteomyelitis Hx of sepsis 06/2019 Hypertension Hypokalemia Hypothyroidism Ischemic cardiomyopathy Adams fracture Base of left fifth metatarsal, nonhealing x years Lymphedema Morbid obesity Rectal bleeding Sleep apnea BIPAP Sustained VT (ventricular tachycardia) Venous stasis ulcer of right lower leg with edema of right lower leg Vitamin D deficiency Surgical History H/O cardiac radiofrequency ablation OCTOBER 2019 ([facility]) AT [facility] H/O foot surgery LEFT FOOT ULCER DEBRIDEMENT H/O shoulder surgery left History of cardiac cath V. tach -- no stent. 06/2019. unsure where it was done History of colonoscopy History of esophagogastroduodenoscopy (EGD) History of sinus surgery Hx of amputation of lesser toe Hx of tonsillectomy Family History Sister Family history of diabetes mellitus 2 Grandmother (Maternal) Family history of diabetes mellitus Grandfather (Maternal) Family history of diabetes mellitus Father Cancer Mother Cancer Other No family history of adverse response to anesthesia Social History Smoking Status: Never smoker Second Hand Exposure: No; Do You Dip or Chew Tobacco: No; Hx Alcohol Use: Yes Alcohol type: other Hx Substance Use: No Preferred Language: Albanian Communication Ability: Effective 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 Review of Systems Review of Systems: Constitutional: No fever, sweats or chills Eyes: No diplopia, no worsening or blurred vision ENT: normal hearing, no trouble swallowing Respiratory: + chronic cough, no sputum, dyspnea at rest or on exertion Cardiovascular: No chest pain, tightness or palpitations Abdomen: No pain, nausea, vomiting, diarrhea or constipation Musculoskeletal: No joint pain, calf pain,+ BLE swelling Neurologic: No weakness, numbness/tingling, or balance problems Psychiatric: No anxiety or depression Skin: +multiple BLE wounds on the right and left leg as per HPI. Physical Exam Physical Exam: General: awake, alert, no apparent distress, + morbidly obese with BMI 48.2 Head: Normocephalic, atraumatic ENT: PERRL, EOMI, no pharyngeal exudate, mucous membranes moist Chest: Clear to auscultation, on room air, no adventitious breath sounds Cardiac: Regular rate and rhythm, no murmur, no JVD, normal peripheral pulses, good capillary refill Abdominal: NABS x 4 quadrants, soft, nondistended, nontender to palpation, no rebound or guarding Extremities: Left lower extremity with lateral tibial wound, surrounding erythema, serosanguineous drainage, + erythema encompassing the lower leg from the ankle up to above the knee has been outlined with a skin marker, left heel with unstageable diabetic ulceration/wound, right lower extremity lateral foot wound which appears to be black in color no surrounding erythema, right second toe wound black in color no surrounding erythema, +chronic venous stasis changes, chronic scaling skin changes, worse on the right foot compared to left, + onychomycosis. calfs nontender to palpation Psych: Depressed mood and flat affect Neuro: AAO x 3, strength intact bilaterally and rated 5/5, no motor deficits, speech is clear, no peripheral sensory deficits Results & Data Results & Data ([facility]) Vital Signs (Past 12 Hours) Vital Signs Temp Pulse Resp BP Pulse Ox 08/01/20 12:10 36.7 C 81 18 140/77 96 Diagnostic Findings Foot X-Ray 08/01/20 15:27 LEFT FOOT 3 VIEWS CLINICAL HISTORY: Left foot ulceration. FINDINGS: 3 views of the left foot are compared to study dated 07/12/2020. The skeletal structures are osteopenic. No acute fracture is seen. There is a subacute versus chronic fracture through the base of the fifth metatarsal. There is no bony erosion or periostitis. There are large dorsal and plantar calcaneal enthesophytes. Moderate osteoarthritic change is seen throughout the midfoot, greatest at the tarsometatarsal joints. Mild osteoarthritic change is seen at the first metatarsophalangeal joint. Subcutaneous gas is seen along the lateral aspect of the foot. Diffuse soft tissue edema is noted. Atherosclerotic calcification is observed in the regional arteries. IMPRESSION: 1. There is diffuse soft tissue edema with subcutaneous gas identified along the lateral aspect of foot. 2. No acute bony abnormality is identified. There is no radiographic evidence of osteomyelitis. 3. There is a subacute versus chronic fracture through the base of the fifth metatarsal. 4. Osteopenia and degenerative change as above. Code Status & VTE Plan Code Status Full code - discussed with the pt at bedside Supervising Physician Co-Signing Physician Notes I have seen and examined the patient and have discussed the case with the provider above. I agree with the assessment and plan as stated. The patient is a 54 yo diabetic man with a chronic left foot wound s/p surgery in May 2020 with placement of antibiotic beads c/b wound dehiscence and infection requiring 14 days of IV antibiotics. He was also hospitalized for Covid-19, and is 20 days post diagnosis. He is still having an intermittent dry cough and CXR reveals persistent pneumonia vs pulmonary edema. He is overall euvolemic and lungs are clear to auscultation on exam without any respiratory distress present. There is no conversational dyspnea. He reports hitting his left leg on a stationary bike at home just after hospital discharge and states he was seen at the wound clinic shortly after this and was placed on doxycycline. Despite this, the jim thema continued and he has now developed a cellulitis to his left knee. He is not septic or ill-appearing. Ortho to see him in am with plans for possible surgical debridement later this week. Cont broad spectrum abx pending blood and wound cultures. Will discuss CXR findings with the patient in the morning. For now, he is not hypoxic and will continue with his home diuretic therapy. Daily weights. Of note, he has been struggling with low blood sugars at home and reports his insulin pump bassal rate was just decreased to 2U/hr with less restricted carb ratio. Managmenet of pump with assistance from glycemic pharmacist. DO Mark
[2020-08-01 14:07] LABS: Basophils # (auto) 0.07 K/uL (0-0.2); Basophils % (auto) 0.6 %; Eosinophils # (auto) 0.12 K/uL (0-0.5); Eosinophils % (auto) 1.1 %; Hematocrit (blood only) 39.1 % (42-52); Hemoglobin 12.4 g/dL (14.0-18.0); Immature Granulocytes # (auto) 0.06 K/uL (0.00-0.02); Immature Granulocytes % (auto) 0.5 %; Lymphocytes # (auto) 1.04 K/uL (1.2-3.4); Lymphocytes % (auto) 9.4 %; Mean Corpuscular Hemoglobin 27.8 pg (25-34); Mean Corpuscular Hgb Conc 31.7 g/dL (32-36); Mean Corpuscular Volume 87.7 fL (80-100); Mean Platelet Volume 8.9 fL (7.4-10.4); Monocytes # (auto) 1.34 K/uL (0.11-0.59); Monocytes % (auto) 12.1 %; Neutrophils % (auto) 76.3 %; Platelet Count 335 K/uL (130-400); RDW Coefficient of Variation 18.6 % (11.5-14.5); Red Blood Count 4.46 M/uL (4.7-6.1); White Blood Count 11.03 K/uL (4.8-10.8)
--- NOTE | 2020-08-01 14:13 | Emergency Department Note ---
History of Present Illness General Chief complaint: Infection, Wound Stated complaint: WOUNDS ON LEFT LEG AND FEET, INFECTED Time Seen by Provider: 08/01/20 13:01 History of Present Illness Maximum Pain Intensity: 0 This is a medically complicated 54-year-old male presenting to the emergency department for evaluation of open wounds to the left lower leg and left foot. The patient is a diabetic who has been in and out of the hospital the past 6 weeks for various wound issues. He initially had a diabetic ulcer of his left heel that went to the OR for debridement. The patient dehisced the wound after walking on it at home and was admitted for an extended period of time. He was discharged 7 days ago after completing a long course of antibiotics. The patient had refused rehab hospital placement at disposition, and immediately went home and cut his anterior left mcknight on his walker. The patient went to his primary care physician who started him on doxycycline. The wound was not primarily closed, but may have benefited from this due to its size. The patient went to the wound clinic today where they expressed significant concern for both this wound as well as a new ulcer on the left lateral foot. They did perform wound culture and referred the patient to the ER for evaluation. Previous cultures have grown Pseudomonas. The patient rates his current discomfort a 0/10. He did test positive for Covid roughly 2-1/2 weeks ago but is no longer symptomatic. He has not had distinct fever. Home Medications Medication Instructions Recorded Confirmed Type fluticasone propionate 50 2 sprays INTNAS BID gm 12/21/17 08/01/20 History mcg/actuation nasal spray,suspension levothyroxine 100 mcg capsule 100 mcg PO QAM 12/21/17 08/01/20 History magnesium oxide 400 mg PO QAM cap 12/21/17 08/01/20 History mometasone-formoterol HFA 200 2 puffs INH BID 12/21/17 08/01/20 History mcg-5 mcg/actuation aerosol inhaler nitroglycerin 0.4 mg sublingual 0.4 mg SL Q5M PRN 12/21/17 08/01/20 History tablet omeprazole 20 mg capsule,delayed 20 mg PO QAM 12/21/17 08/01/20 History release tramadol 50 mg tablet 50 mg PO Q6H PRN 12/21/17 08/01/20 History ergocalciferol (vitamin D2) 50,000 unit PO WK 04/12/19 08/01/20 History gabapentin 300 mg PO TID 04/12/19 08/01/20 History hyoscyamine sulfate [Levsin] 0.125 mg PO TID 04/12/19 08/01/20 History atorvastatin 80 mg PO PM 01/18/20 08/01/20 History clobetasol 1 applic TOPICAL BID 01/18/20 08/01/20 History potassium chloride 20 meq PO QAM 01/18/20 08/01/20 History blood-glucose meter #1 ea 02/21/20 08/01/20 Rx insulin aspart U-100 100 unit/mL See Rx Instructions CONTINUOUS 02/29/20 08/01/20 Rx subcutaneous solution SUBCUTANEOUS INFUSION DAILY #12 ml ammonium lactate 5 % lotion 1 applic TOPICAL DAILY PRN #226 g 04/19/20 08/01/20 Rx dulaglutide 1.5 mg/0.5 mL 1.5 mg SQ WK ml 05/03/20 08/01/20 History subcutaneous pen injector albuterol sulfate [Ventolin HFA] 2 puff INHALATION QID PRN 05/30/20 08/01/20 History aspirin 81 mg PO DAILY 06/12/20 08/01/20 History torsemide 60 mg PO BID #180 tab 06/29/20 08/01/20 Rx hydrocodone 10 mg-acetaminophen 15 ml PO Q8H PRN 07/12/20 08/01/20 History 325 mg/15 mL (15 mL) oral solution warfarin 1 - 2 mg PO UD 07/12/20 08/01/20 History amiodarone 200 mg PO BID #60 tab 07/25/20 08/01/20 Rx doxycycline hyclate 100 mg capsule 100 mg PO BID 07/31/20 08/01/20 History Allergies Allergy/AdvReac Type Severity Reaction Status Date / Time benzonatate AdvReac Intermediate choking, Verified 07/31/20 11:44 gagging Past Med/Surg History Medical History Arthritis Asthma well controlled, daily skilled nursing 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 Bacteremia due to group B Streptococcus CAD (coronary artery disease) Cardiac defibrillator in situ 2007 with replacement 03/2020. follows [address] Dr. Maya. CKD (chronic kidney disease) stage 3, GFR 30-59 ml/min Deformity of foot Depression Diabetes type 2, uncontrolled Diabetic peripheral neuropathy associated with type 2 diabetes mellitus Dyslipidemia GERD (gastroesophageal reflux disease) H/O osteomyelitis History of diabetic ulcer of foot Hx of myocardial infarction found on testing Hx of osteomyelitis Hx of sepsis 06/2019 Hypertension Hypokalemia Hypothyroidism Ischemic cardiomyopathy Adams fracture Base of left fifth metatarsal, nonhealing x years Lymphedema Morbid obesity Rectal bleeding Sleep apnea BIPAP Sustained VT (ventricular tachycardia) Venous stasis ulcer of right lower leg with edema of right lower leg Vitamin D deficiency Surgical History H/O cardiac radiofrequency ablation OCTOBER 2019 ([facility]) AT [facility] H/O foot surgery LEFT FOOT ULCER DEBRIDEMENT H/O shoulder surgery left History of cardiac cath V. tach -- no stent. 06/2019. unsure where it was done History of colonoscopy History of esophagogastroduodenoscopy (EGD) History of sinus surgery Hx of amputation of lesser toe Hx of tonsillectomy Family History Sister Family history of diabetes mellitus 2 Grandmother (Maternal) Family history of diabetes mellitus Grandfather (Maternal) Family history of diabetes mellitus Father Cancer Mother Cancer Other No family history of adverse response to anesthesia Social History Smoking Status: Never smoker Second Hand Exposure: No; Do You Dip or Chew Tobacco: No; Hx Alcohol Use: Yes Alcohol type: other Hx Substance Use: No Preferred Language: Mongolian Communication Ability: Effective Municipal Engineer Required: No Beliefs That Will Affect Care: None marital status: Current Living Situation: Spouse current occupational status: disabled Feels Safe at Home: Yes Safety Concerns: Feels Safe At This Time Assistive Devices: Glasses and Walker Assistive Devices Comment: uses bipap at night. Review of Systems A total of 10 systems reviewed and were otherwise negative Physical Exam Vital Signs Vital Signs - 24 hr 08/01/20 14:01 08/01/20 15:17 Pulse Rate [Finger] 103 H 85 Respiratory Rate 20 18 Respiratory Effort / Characteristics Non-Labored Blood Pressure [Right Arm] 144/64 H 144/68 H Blood Pressure Mean [Right Arm] 90 93 Pulse Oximetry 96 96 Oxygen Delivery Method Room Air Room Air VITALS: Vitals are noted on the nurse's note and reviewed by myself. Vital signs with slight tachycardia. GENERAL: Morbidly obese white male who is resting comfortably in the ER bed. HEAD: Normocephalic atraumatic. HEART: Regular rate and rhythm without murmurs gallops or rubs. LUNGS: Clear to auscultation bilaterally without wheezes, rales or rhonchi. No retractions or accessory muscle use. MUSCULOSKELETAL: Chronic edema of the bilateral legs noted. There is a L-shaped roughly 4 cm wound to the left anterior tibia that appears to be fairly well healing. There may be some warmth around this concerning for cellulitis. The l eft heel is notably improved compared to the patient's last ER visit, however there is a new lateral aspect ulcer that is at least 2 cm deep. This has been packed with Aquacel already from the wound clinic. NEURO: Patient was alert and oriented to person place and time. CN II through XII grossly intact. Course Administered Medications Hydrocodone Bitart/Acetaminophen (Hydrocodone/Acetaminophen 10/325 Tab) 1 tab PO Q8H PRN PRN Reason: Pain Stop: 08/15/20 18:08 Last Admin: 08/02/20 08:41 Dose: 1 tab Documented by: [id number] Admin: 08/01/20 20:52 Dose: 1 tab Documented by: [id number] Amiodarone HCl (Amiodarone 200 Mg Tab) 200 mg PO BID MATT Stop: 08/31/20 20:59 Last Admin: 08/02/20 08:34 Dose: 200 mg Documented by: [id number] Admin: 08/01/20 20:52 Dose: 200 mg Documented by: [id number] Aspirin (Aspirin 81 Mg Ectab) 81 mg PO DAILY MATT Stop: 09/01/20 08:59 Last Admin: 08/02/20 08:34 Dose: 81 mg Documented by: [id number] Atorvastatin Calcium (Atorvastatin 40 Mg Tab) 80 mg PO PM MATT Stop: 08/31/20 20:59 Last Admin: 08/01/20 20:54 Dose: 80 mg Documented by: [id number] Clobetasol Propionate (Clobetasol Propionate 0.05% Oint 15 Gm Tube) 1 appln EXT BID MATT Stop: 08/31/20 20:59 Last Admin: 08/02/20 08:33 Dose: Not Given Documented by: [id number] Admin: 08/01/20 20:44 Dose: Not Given Documented by: [id number] Fluticasone Propionate (Fluticasone Propionate Na Spr 16 Gm Btl) 2 sprays NA BID [facility] Stop: 08/31/20 20:59 Last Admin: 08/02/20 08:33 Dose: 2 sprays Documented by: [id number] Admin: 08/01/20 20:53 Dose: 2 sprays Documented by: [id number] Fluticasone/Vilanterol (Fluticasone/Vilanterol 200/25mcg 14 Puffs/Inhaler) 1 puffs INH QPM MATT Stop: 08/31/20 20:59 Last Admin: 08/01/20 20:54 Dose: 1 puffs Documented by: [id number] Gabapentin (Gabapentin 300 Mg Cap) 300 mg PO TID [facility] Stop: 08/31/20 20:59 Last Admin: 08/02/20 08:34 Dose: 300 mg Documented by: [id number] Admin: 08/01/20 20:54 Dose: 300 mg Documented by: [id number] Guaifenesin (Guaifenesin 600 Mg Tabcr) 600 mg PO Q12 [facility] Stop: 08/31/20 20:59 Last Admin: 08/02/20 08:34 Dose: 600 mg Documented by: [id number] Admin: 08/01/20 20:54 Dose: 600 mg Documented by: [id number] Hyoscyamine (Hyoscyamine Sulfate 0.125 Mg Tab) 0.125 mg PO TID [facility] Stop: 08/31/20 20:59 Last Admin: 08/02/20 08:34 Dose: 0.125 mg Documented by: [id number] Admin: 08/01/20 20:52 Dose: 0.125 mg Documented by: [id number] Piperacillin Sod/Tazobactam (Sod 4.5 gm/ Dextrose) 120 mls @ 30 mls/hr IV Q8H [facility]; Protocol Stop: 08/08/20 19:59 Last Infusion: 08/02/20 07:16 Dose: 0 mls/hr Documented by: [id number] Admin: 08/02/20 03:13 Dose: 30 mls/hr Documented by: [id number] Infusion: 08/02/20 00:46 Dose: 0 mls/hr Documented by: [id number] Admin: 08/01/20 20:33 Dose: 30 mls/hr Documented by: [id number] Heparin Sodium/Dextrose (Heparin Sodium/Dextrose) 25,000 units in 500 mls @ 37 mls/hr IV .[id number] [facility]; Protocol Stop: 08/31/20 17:44 Last Admin: 08/02/20 10:32 Dose: Not Given Documented by: [id number] Titration: 08/02/20 10:22 Dose: 1,850 units/hr, 37 mls/hr Documented by: [id number] Cosigned by: [id number] Admin: 08/02/20 08:31 Dose: 1,950 units/hr, 39 mls/hr Documented by: [id number] Cosigned by: [id number] Titration: 08/02/20 08:31 Dose: 1,950 units/hr, 39 mls/hr Documented by: [id number] Cosigned by: [id number] Titration: 08/02/20 07:11 Dose: 1,950 units/hr, 39 mls/hr Documented by: [id number] Cosigned by: [id number] Titration: 08/02/20 03:30 Dose: 1,950 units/hr, 39 mls/hr Documented by: [id number] Cosigned by: [id number] Admin: 08/01/20 20:34 Dose: 2,050 units/hr, 41 mls/hr Documented by: [id number] Cosigned by: [id number] Insulin Aspart (Novolog Insulin Pump) 1 ea N/A ACHS [facility]; Protocol Stop: 08/31/20 20:59 Last Admin: 08/02/20 08:39 Dose: 1 ea Documented by: [id number] Admin: 08/01/20 23:33 Dose: Not Given Documented by: [id number] Cosigned by: [id number] Levothyroxine Sodium (Levothyroxine Sodium 100 Mcg Tablet) 100 mcg PO DAILYBB [facility] Stop: 09/01/20 06:29 Last Admin: 08/02/20 05:47 Dose: 100 mcg Documented by: [id number] Magnesium Oxide (Magnesium Oxide 400 Mg Tab) 400 mg PO QAM [facility] Stop: 09/01/20 08:59 Last Admin: 08/02/20 08:35 Dose: 400 mg Documented by: [id number] Menthol (Cough Drop (Sugar Free) Raphael 24 Raphael/1 Box) 1 raphael BUCCAL PRN PRN PRN Reason: Cough Stop: 08/31/20 19:46 Last Admin: 08/01/20 20:33 Dose: 1 raphael Documented by: [id number] Pantoprazole Sodium (Pantoprazole 40 Mg Tab) 40 mg PO QAM [facility] Stop: 09/01/20 08:59 Last Admin: 08/02/20 08:35 Dose: 40 mg Documented by: [id number] Potassium Chloride (Potassium Chloride Crtab 20 Meq Tabcr) 20 meq PO QAM [facility] Stop: 09/01/20 08:59 Last Admin: 08/02/20 08:34 Dose: 20 meq Documented by: [id number] Potassium Chloride (Potassium Chloride Pwd 20 Meq Pack) 40 meq PO Q6H [facility] Stop: 08/02/20 16:01 Last Admin: 08/02/20 10:52 Dose: 40 meq Documented by: [id number] Torsemide (Torsemide 20 Mg Tab) 60 mg PO BID17 [facility] Stop: 08/31/20 17:59 Last Admin: 08/02/20 08:35 Dose: 60 mg Documented by: [id number] Admin: 08/01/20 18:32 Dose: 60 mg Documented by: [id number] Tramadol HCl (Tramadol Hcl 50 Mg Tablet) 50 mg PO Q6H PRN PRN Reason: pain Stop: 08/31/20 17:27 Last Admin: 08/02/20 03:16 Dose: 50 mg Documented by: [id number] Discontinued Medications Heparin Sodium/Dextrose (Heparin Iv Standard *No* Bolus) 1 ea IV Q15M [facility]; Protocol Stop: 08/01/20 19:01 Last Admin: 08/01/20 22:58 Dose: Not Given Documented by: [id number] Admin: 08/01/20 20:21 Dose: Not Given Documented by: [id number] Admin: 08/01/20 18:29 Dose: 1 ea Documented by: [id number] Daptomycin 675 mg/ Syringe 13.5 mls @ 6.75 mls/min IV ONE ONE; Protocol Stop: 08/01/20 13:16 Last Admin: 08/01/20 14:23 Dose: 6.75 mls/min Documented by: [id number] Piperacillin Sod/Tazobactam Sod (Zosyn) 4.5 gm in 120 mls @ 240 mls/hr IV NOW ONE Stop: 08/01/20 13:44 Last Infusion: 08/01/20 14:55 Dose: 0 mls/hr Documented by: [id number] Admin: 08/01/20 14:23 Dose: 240 mls/hr Documented by: [id number] Miscellaneous Information (Pharmacy Glycemic Mgmt Consult) 1 ea N/A NOW STA; Protocol Stop: 08/01/20 16:18 Last Admin: 08/01/20 18:29 Dose: 1 ea Documented by: [id number] Medical Decision Making Differential Diagnosis Differential diagnosis: Etiologies such as viral syndrome, otitis, pharyngitis, pneumonia, influenza, meningitis, urinary tract infection, septic arthritis, soft tissue infectious process, intra-abdominal process, sepsis, bacteremia, as well as others were entertained. Laboratory Data Result diagrams: 08/02/20 02:48 08/02/20 02:48 Lab Results 08/01/20 08/01/20 08/01/20 Range/Units 13:55 13:55 13:55 WBC 11.03 H (4.8-10.8) K/uL RBC 4.46 L (4.7-6.1) M/uL Hgb 12.4 L (14.0-18.0) g/dL Hct 39.1 L (42-52) % MCV 87.7 (80-100) fL MCH 27.8 (25-34) pg MCHC 31.7 L (32-36) g/dL RDW Std Deviation 58.0 H (36.4-46.3) fL RDW Coeff of Мария 18.6 H (11.5-14.5) % Plt Count 335 (130-400) K/uL MPV 8.9 (7.4-10.4) fL Immature Gran % (Auto) 0.5 % Neut % (Auto) 76.3 % Lymph % (Auto) 9.4 % Ritchie % (Auto) 12.1 % Eos % (Auto) 1.1 % Baso % (Auto) 0.6 % Neut # (Auto) 8.40 H (1.4-6.5) K/uL Lymph # (Auto) 1.04 L (1.2-3.4) K/uL Ritchie # (Auto) 1.34 H (0.11-0.59) K/uL Eos # (Auto) 0.12 (0-0.5) K/uL Baso # (Auto) 0.07 (0-0.2) K/uL Immature Gran # (Auto) 0.06 H (0.00-0.02) K/uL ESR 80 H (0-14) mm/hr PT (9.0-12.0) Seconds INR (0.9-1.1) APTT (21.0-31.0) Seconds PTT Ratio Sodium (136-145) mmol/L Potassium (3.5-5.1) mmol/L Chloride (98-107) mmol/L Carbon Dioxide (21-32) mmol/L Anion Gap (3-11) BUN (7-18) mg/dl Creatinine (0.6-1.4) mg/dl Est Cr Clr Drug Dosing ml/min Est GFR ( Amer) Est GFR (Non-Af Amer) BUN/Creatinine Ratio (10-20) Glucose (70-99) mg/dl Lactate 2.0 (0.4-2.0) mmol/L Calcium (8.5-10.1) mg/dl Total Bilirubin (0.2-1) mg/dl AST (15-37) U/L ALT (12-78) U/L Alkaline Phosphatase (45-117) U/L C-Reactive Protein (0-0.29) mg/dl Total Protein (6.4-8.2) gm/dl Albumin (3.4-5.0) gm/dl Globulin (2.5-4.0) gm/dl Albumin/Globulin Ratio (0.9-2) COVID-19 Eval Order SARS-CoV-2 (PCR) (Negative) Influenza Type A (PCR) (Neg) Influenza Type B (PCR) (Neg) RSV (RT-PCR) (Neg) 08/01/20 08/01/20 08/01/20 Range/Units 13:55 13:55 14:00 WBC (4.8-10.8) K/uL RBC (4.7-6.1) M/uL Hgb (14.0-18.0) g/dL Hct (42-52) % MCV (80-100) fL MCH (25-34) pg MCHC (32-36) g/dL RDW Std Deviation (36.4-46.3) fL RDW Coeff of Мария (11.5-14.5) % Plt Count (130-400) K/uL MPV (7.4-10.4) fL Immature Gran % (Auto) % Neut % (Auto) % Lymph % (Auto) % Ritchie % (Auto) % Eos % (Auto) % Baso % (Auto) % Neut # (Auto) (1.4-6.5) K/uL Lymph # (Auto) (1.2-3.4) K/uL Ritchie # (Auto) (0.11-0.59) K/uL Eos # (Auto) (0-0.5) K/uL Baso # (Auto) (0-0.2) K/uL Immature Gran # (Auto) (0.00-0.02) K/uL ESR (0-14) mm/hr PT 14.5 H (9.0-12.0) Seconds INR 1.5 H (0.9-1.1) APTT 28.4 (21.0-31.0) Seconds PTT Ratio 1.1 Sodium 136 (136-145) mmol/L Potassium 3.5 (3.5-5.1) mmol/L Chloride 100 (98-107) mmol/L Carbon Dioxide 32 (21-32) mmol/L Anion Gap 4.0 (3-11) BUN 26 H (7-18) mg/dl Creatinine 1.47 H (0.6-1.4) mg/dl Est Cr Clr Drug Dosing 90.6 ml/min Est GFR ( Amer) 60.9 Est GFR (Non-Af Amer) 52.6 BUN/Creatinine Ratio 17.7 (10-20) Glucose 191 H (70-99) mg/dl Lactate (0.4-2.0) mmol/L Calcium 9.0 (8.5-10.1) mg/dl Total Bilirubin 1.0 (0.2-1) mg/dl AST 17 (15-37) U/L ALT 20 (12-78) U/L Alkaline Phosphatase 142 H (45-117) U/L C-Reactive Protein 3.03 H (0-0.29) mg/dl Total Protein 8.4 H (6.4-8.2) gm/dl Albumin 2.2 L (3.4-5.0) gm/dl Globulin 6.2 H (2.5-4.0) gm/dl Albumin/Globulin Ratio 0.4 L (0.9-2) COVID-19 Eval Order CovFluRsv at [facility] SARS-CoV-2 (PCR) (Negative) Influenza Type A (PCR) (Neg) Influenza Type B (PCR) (Neg) RSV (RT-PCR) (Neg) 08/01/20 Range/Units 14:00 WBC (4.8-10.8) K/uL RBC (4.7-6.1) M/uL Hgb (14.0-18.0) g/dL Hct (42-52) % MCV (80-100) fL MCH (25-34) pg MCHC (32-36) g/dL RDW Std Deviation (36.4-46.3) fL RDW Coeff of Мария (11.5-14.5) % Plt Count (130-400) K/uL MPV (7.4-10.4) fL Immature Gran % (Auto) % Neut % (Auto) % Lymph % (Auto) % Ritchie % (Auto) % Eos % (Auto) % Baso % (Auto) % Neut # (Auto) (1.4-6.5) K/uL Lymph # (Auto) (1.2-3.4) K/uL Ritchie # (Auto) (0.11-0.59) K/uL Eos # (Auto) (0-0.5) K/uL Baso # (Auto) (0-0.2) K/uL Immature Gran # (Auto) (0.00-0.02) K/uL ESR (0-14) mm/hr PT (9.0-12.0) Seconds INR (0.9-1.1) APTT (21.0-31.0) Seconds PTT Ratio Sodium (136-145) mmol/L Potassium (3.5-5.1) mmol/L Chloride (98-107) mmol/L Carbon Dioxide (21-32) mmol/L Anion Gap (3-11) BUN (7-18) mg/dl Creatinine (0.6-1.4) mg/dl Est Cr Clr Drug Dosing ml/min Est GFR ( Amer) Est GFR (Non-Af Amer) BUN/Creatinine Ratio (10-20) Glucose (70-99) mg/dl Lactate (0.4-2.0) mmol/L Calcium (8.5-10.1) mg/dl Total Bilirubin (0.2-1) mg/dl AST (15-37) U/L ALT (12-78) U/L Alkaline Phosphatase (45-117) U/L C-Reactive Protein (0-0.29) mg/dl Total Protein (6.4-8.2) gm/dl Albumin (3.4-5.0) gm/dl Globulin (2.5-4.0) gm/dl Albumin/Globulin Ratio (0.9-2) COVID-19 Eval Order SARS-CoV-2 (PCR) POSITIVE A* (Negative) Influenza Type A (PCR) Negative (Neg) Influenza Type B (PCR) Negative (Neg) RSV (RT-PCR) Negative (Neg) MDM Narrative Physical exam and history were performed. Nursing notes, EMR, and Medication List were personally reviewed. Patient appears to have 2 new wounds to the left lower leg, one being traumatic, and the other more consistent with a diabetic ulcer. The patient was sent by the wound clinic due to the severity of the wounds and concern for infection. The patient has only been out of the hospital about a week and has already deteriorated to this point. IV access was established and labs were obtained. Blood cultures were gathered. The patient was started on daptomycin and Zosyn as all cultures did grow Pseudomonas. New Covid was performed. The patient's blood work is as above and is reviewed. He does not have a significantly elevated white blood cell count. He is mildly anemic. He does not have a significant electrolyte imbalance. Transaminases are not diagnostic. Lactic is negative but inflammatory markers are elevated. Covid remains positive. X-ray was reviewed by myself and radiology showing gas but no obvious osteomyelitis. Overall the patient does not appear well for discharge home. He has 2 new wounds, 1 of which traumatic, and 1 of which is likely diabetic. The patient clearly is not taking care of himself at home and was referred by the wound clinic due to his symptoms. I did discuss the case with the on-call hospitalist team who agreed to evaluate the patient here in the ER. Please see their dictation for further patient course, plan, and disposition. The chart was completed utilizing [employer] Speech Voice Recognition Software. Grammatical errors, random word insertions, pronoun errors, and incomplete sentences are an occasional consequence of this system due to software limitations, ambient noise, and hardware issues. Any formal questions or concerns about the content, text, or information contained within the body of this dictation should be directly addressed to the provider for clarification. . Impression & Plan Diabetic foot ulcer, Cellulitis, Traumatic open wound of lower leg Discharge Plan Visit Data Chief Complaint: Infection, Wound Stated Complaint: WOUNDS ON LEFT LEG AND FEET, INFECTED ED Provider: Heron Fisher ED Midlevel Provider: Andres Rosa Discharge Problem: Diabetic foot ulcer, Cellulitis, Traumatic open wound of lower leg Patient Disposition: Admitted As Inpatient Discharge Instructions Interventions: ED Discharge Assessment Last Done: 08/01/20 17:05
[2020-08-01 14:29] LABS: INR 1.5 (0.9-1.1); Partial Thromboplastin Ratio 1.1; Partial Thromboplastin Time 28.4 Seconds (21.0-31.0); Prothrombin Time 14.5 Seconds (9.0-12.0)
[2020-08-01 14:32] LABS: Albumin Level 2.2 gm/dl (3.4-5.0); BUN Creatinine Ratio 17.7 (10-20); C Reactive Protein 3.03 mg/dl (0-0.29); Creatinine Clr Calc Pharmacy 90.6 ml/min; Est GFR (African American) 60.9; Est GFR (Non-African American) 52.6; Potassium 3.5 mmol/L (3.5-5.1)
[2020-08-01 14:35] LABS: Albumin Globulin Ratio 0.4 (0.9-2); Globulin 6.2 gm/dl (2.5-4.0); Total Protein 8.4 gm/dl (6.4-8.2)
[2020-08-01 14:49] LABS: Influenza A virus by PCR Negative (Neg); Influenza B virus by PCR Negative (Neg); RSV by PCR Negative (Neg)
[2020-08-01 15:00] LABS: SARS CoV2 RNA(COVID-19) InHosp POSITIVE (Negative)
--- NOTE | 2020-08-01 16:08 | XRay Report ---
LEFT FOOT 3 VIEWS CLINICAL HISTORY: Left foot ulceration. FINDINGS: 3 views of the left foot are compared to study dated 07/12/2020. The skeletal structures are osteopenic. No acute fracture is seen. There is a subacute versus chronic fracture through the base of the fifth metatarsal. There is no bony erosion or periostitis. There are large dorsal and plantar calcaneal enthesophytes. Moderate osteoarthritic change is seen throughout the midfoot, greatest at t he tarsometatarsal joints. Mild osteoarthritic change is seen at the first metatarsophalangeal joint. Subcutaneous gas is seen along the lateral aspect of the foot. Diffuse soft tissue edema is noted. A therosclerotic calcification is observed in the regional arteries. IMPRESSION: 1. There is diffuse soft tissue edema with subcutaneous gas identified along the lateral aspect of fo ot. 2. No acute bony abnormality is identified. There is no radiographic evidence of osteomyelitis. 3. There is a subacute versus chronic fracture through the base of the fifth metatarsal. 4. Osteopenia and degenerative change as above. Electronically signed by: Lukas Trivedi M.D. 08/01/2020 4:07 PM
[2020-08-01] MEDS ORDERED: WARFARIN SOD 1 MG TAB PO SCH (16:17)
[2020-08-01] MEDS ORDERED: PHARMACY GLYCEMIC MGMT CONSULT STA (16:17)
[2020-08-01] MEDS ORDERED: PHARMACY GLYCEMIC MGMT CONSULT PRN (17:03)
[2020-08-01] MEDS ORDERED: ALBUTEROL HFA 8 GM INHALER INH PRN (17:28)
[2020-08-01] MEDS ORDERED: CARBOHYDRATES FOR HYPOGLYCEMIA PO PRN ×2 (17:28→17:30)
[2020-08-01] MEDS ORDERED: ACETAMINOPHEN 325 MG TAB PO PRN (17:28)
[2020-08-01] MEDS ORDERED: NON-FORMULARY MEDICATION (Dulaglutide [Trulicity] 1.5 mg/0.5 mL pen injector) SQ SCH (17:28)
[2020-08-01] MEDS ORDERED: ONDANSETRON INJ 2 MG/ML 2 ML VIAL IV PRN (17:28)
[2020-08-01] MEDS ORDERED: GLUCAGON FOR INJ 1 MG VIAL SQ PRN ×2 (17:28→17:30)
[2020-08-01] MEDS ORDERED: PIPERACILLIN/TAZOBACTAM 3.375 GM in DEXTROSE 5% 100 ML IV SCH (17:28)
[2020-08-01] MEDS ORDERED: GLUCOSE 40% GEL 15 GM TUBE PO PRN ×2 (17:28→17:30)
[2020-08-01] MEDS ORDERED: DEXTROSE 50% 50 ML SYRINGE IV PRN ×2 (17:28→17:30)
[2020-08-01] MEDS ORDERED: GLUCOSE 10 TABS/TUBE PO PRN ×2 (17:28→17:30)
[2020-08-01] MEDS ORDERED: AMMONIUM LACTATE 12% LOTION 225 GM BTL EXT PRN (17:28)
[2020-08-01] MEDS ORDERED: INSULIN ASPART 100 UNITS/ML VIAL SC PRN (17:30)
[2020-08-01] MEDS: Heparin IV Adult Wt-Based Standard *NO* Bolus Protocol IV SCH ×3 (18:29→22:58)
[2020-08-01] MEDS: TORSEMIDE 20 MG TAB PO SCH (18:32)
[2020-08-01 19:24] LABS: Basophils # (auto) 0.05 K/uL (0-0.2); Basophils % (auto) 0.5 %; Eosinophils % (auto) 0.9 %; Hematocrit (blood only) 39.5 % (42-52); Hemoglobin 12.7 g/dL (14.0-18.0); Immature Granulocytes # (auto) 0.07 K/uL (0.00-0.02); Immature Granulocytes % (auto) 0.6 %; Lymphocytes # (auto) 1.19 K/uL (1.2-3.4); Mean Corpuscular Hemoglobin 27.9 pg (25-34); Mean Corpuscular Volume 86.8 fL (80-100); Monocytes # (auto) 1.11 K/uL (0.11-0.59); Monocytes % (auto) 10.3 %; Neutrophils # (auto) 8.29 K/uL (1.4-6.5); Neutrophils % (auto) 76.7 %; Platelet Count 327 K/uL (130-400); RDW Coefficient of Variation 18.6 % (11.5-14.5); RDW Standard Deviation 58.3 fL (36.4-46.3); Red Blood Count 4.55 M/uL (4.7-6.1); White Blood Count 10.81 K/uL (4.8-10.8)
--- NOTE | 2020-08-01 19:24 | Pharmacy Report ---
Pharmacy Glycemic Short Note 2 - Date of Service August 01, 2020 - Glycemic Short BSG Results (Last 24 hours): 08/01/20 13:55 Glucose 191 H OUTPATIENT ANTIDIABETIC REGIMEN: * Novolog insulin pump * Basal rate: 2 units/hr * CF/CR: 13/09 ASSESSMENT: * Bne is a 54 yo T2DM male well known to the pharmacy glycemic service from recent hospital admission * He presents today for evaluation of open wounds to the left lower leg and left foot. He has been started on daptomycin and zosyn. * He is maintained on a Novolog insulin pump as an outpatient. He had recent DM follow up on 07/31/[address] Torres. At this time, his pump settings were drastically reduced. Hospitalist prefers to continue patient on home insulin pump while admitted if possible. PLAN FOR INPATIENT GLYCEMIC CONTROL: Pt is to manage BSGs with insulin pump per outpatient settings. * RN will have patient read and sign agreement CF [id number] Insulin Pump Therapy Patient Agreement. * RN will provide and explain form [id number] Flowsheet for Patient * Patient will document their insulin dose given on [id number] which is kept at the bedside, available to caregivers upon request, and which becomes part of the permanent medical record. If at any time the patients condition evidences that he/she is not able to manage the insulin pump (i.e. frequent hypo/hyperglycemia) Pharmacy will assume glycemic control by discontinuing the pump & managing with SQ basal bolus insulin regimen for the interim. PLAN FOR DISCHARGE: * tbd
[2020-08-01 19:39] LABS: INR 1.5 (0.9-1.1); Partial Thromboplastin Ratio 1.1; Partial Thromboplastin Time 28.2 Seconds (21.0-31.0); Prothrombin Time 14.4 Seconds (9.0-12.0)
[2020-08-01] MEDS ORDERED: Nursing to Pharmacy Communication SCH (19:45)
[2020-08-01 20:02] LABS: Mean Corpuscular Hgb Conc 32.2 g/dL (32-36)
--- NOTE | 2020-08-01 20:24 | XRay Report ---
SINGLE VIEW CHEST CLINICAL HISTORY: Cough. FINDINGS: An AP, portable, upright chest radiograph is compared to study dated 07/22/2020. A single le ad cardiac AICD is unchanged in position and partially obscures the left mid chest. The heart is enla rged noting atherosclerotic calcification of the thoracic aorta. There are asymmetric airspace opacit ies throughout both lungs, right greater than left. No large pleural effusion or pneumothorax is seen . The skeletal structures are osteopenic. The bony thorax is grossly intact. IMPRESSION: 1. Cardiomegaly and AICD. 2. Asymmetric airspace opacities are seen throughout both lungs, right greater than left and likely r epresents multifocal pneumonia. Pulmonary edema could also have this appearance and clinical correlat ion will be required. Follow-up to resolution is recommended. ACT 112: Negative or not required by law. Electronically signed by: Lukas Trivedi M.D. 08/01/2020 8:22 PM
[2020-08-01] MEDS: COUGH DROP (SUGAR FREE) LOZ 24 LOZ/1 BOX BUCCAL PRN (20:33)
[2020-08-01] MEDS: PIPERACILLIN/TAZOBACTAM 4.5 GM in DEXTROSE 5% 100 ML IV SCH (20:33)
[2020-08-01] MEDS: HEPARIN SODIUM/DEXTROSE 25,000 UNITS/500 ML BAG IV SCH (20:34)
[2020-08-01] MEDS: CLOBETASOL PROPIONATE 0.05% OINT 15 GM TUBE EXT SCH (20:44)
[2020-08-01] MEDS: HYOSCYAMINE SULFATE 0.125 MG TAB PO SCH (20:52)
[2020-08-01] MEDS: AMIODARONE 200 MG TAB PO SCH (20:52)
[2020-08-01] MEDS: HYDROcodone/ACETAMINOPHEN 10/325 TAB PO PRN (20:52)
[2020-08-01] MEDS: FLUTICASONE PROPIONATE NA SPR 16 GM BTL SCH (20:53)
[2020-08-01] MEDS: GABAPENTIN 300 MG CAP PO SCH (20:54)
[2020-08-01] MEDS: FLUTICASONE/VILANTEROL 200/25MCG 14 PUFFS/INHALER INH SCH (20:54)
[2020-08-01] MEDS: guaiFENesin 600 MG TABCR PO SCH (20:54)
[2020-08-01] MEDS ORDERED: ATORVASTATIN 40 MG TAB PO SCH (21:00)
[2020-08-01] MEDS: NovoLOG INSULIN PUMP SCH (23:33)
[2020-08-02 03:02] LABS: Hematocrit (blood only) 34.8 % (42-52); Mean Corpuscular Hemoglobin 27.3 pg (25-34); Mean Corpuscular Hgb Conc 31.6 g/dL (32-36); Mean Corpuscular Volume 86.4 fL (80-100); Mean Platelet Volume 8.9 fL (7.4-10.4); Platelet Count 301 K/uL (130-400); RDW Coefficient of Variation 18.7 % (11.5-14.5); RDW Standard Deviation 57.6 fL (36.4-46.3); Red Blood Count 4.03 M/uL (4.7-6.1); White Blood Count 10.35 K/uL (4.8-10.8)
[2020-08-02] MEDS: PIPERACILLIN/TAZOBACTAM 4.5 GM in DEXTROSE 5% 100 ML IV SCH ×3 (03:13→20:25)
[2020-08-02] MEDS: traMADol HCL 50 MG TABLET PO PRN (03:16)
[2020-08-02 03:19] LABS: Albumin Level 1.8 gm/dl (3.4-5.0); BUN Creatinine Ratio 16.5 (10-20); Calcium 8.3 mg/dl (8.5-10.1); Creatinine Clr Calc Pharmacy 98.9 ml/min; Est GFR (African American) 68.8; Est GFR (Non-African American) 59.3; Potassium 3.2 mmol/L (3.5-5.1)
[2020-08-02 03:22] LABS: Albumin Globulin Ratio 0.3 (0.9-2); Globulin 5.6 gm/dl (2.5-4.0); Total Protein 7.4 gm/dl (6.4-8.2)
[2020-08-02 03:24] LABS: INR 1.5 (0.9-1.1); Partial Thromboplastin Ratio 2.6; Prothrombin Time 14.7 Seconds (9.0-12.0)
[2020-08-02 03:26] LABS: Partial Thromboplastin Time 68.4 Seconds (21.0-31.0)
[2020-08-02] MEDS: LEVOTHYROXINE SODIUM 100 MCG TABLET PO SCH (05:47)
[2020-08-02] MEDS: HEPARIN SODIUM/DEXTROSE 25,000 UNITS/500 ML BAG IV SCH ×3 (08:31→21:50)
[2020-08-02] MEDS: FLUTICASONE PROPIONATE NA SPR 16 GM BTL SCH ×2 (08:33→20:33)
[2020-08-02] MEDS: CLOBETASOL PROPIONATE 0.05% OINT 15 GM TUBE EXT SCH ×2 (08:33→20:32)
[2020-08-02] MEDS: HYOSCYAMINE SULFATE 0.125 MG TAB PO SCH ×3 (08:34→20:32)
[2020-08-02] MEDS: AMIODARONE 200 MG TAB PO SCH ×2 (08:34→20:32)
[2020-08-02] MEDS: ASPIRIN 81 MG ECTAB PO SCH (08:34)
[2020-08-02] MEDS: GABAPENTIN 300 MG CAP PO SCH ×3 (08:34→20:32)
[2020-08-02] MEDS: POTASSIUM CHLORIDE CRTAB 20 MEQ TABCR PO SCH (08:34)
[2020-08-02] MEDS: guaiFENesin 600 MG TABCR PO SCH ×2 (08:34→20:33)
[2020-08-02] MEDS: TORSEMIDE 20 MG TAB PO SCH ×2 (08:35→16:26)
[2020-08-02] MEDS: PANTOprazole 40 MG TAB PO SCH (08:35)
[2020-08-02] MEDS: MAGNESIUM OXIDE 400 MG TAB PO SCH (08:35)
[2020-08-02] MEDS: NovoLOG INSULIN PUMP SCH ×4 (08:39→22:07)
[2020-08-02] MEDS: HYDROcodone/ACETAMINOPHEN 10/325 TAB PO PRN ×2 (08:41→20:31)
[2020-08-02] MEDS ORDERED: INSULIN ASPART PER UNIT SQ SCH (09:00)
--- NOTE | 2020-08-02 09:15 | Pharmacy Report ---
Pharmacy Glycemic Short Note 2 - Date of Service August 02, 2020 - Glycemic Short BSG Results (Last 24 hours): 08/01/20 08/01/20 08/02/20 13:55 20:35 02:48 Glucose 191 H 131 H POC Glucose 149 H 08/02/20 08/02/20 04:26 08:16 Glucose POC Glucose 140 H 137 H OUTPATIENT ANTIDIABETIC REGIMEN: * Novolog insulin pump * Basal rate: 2 units/hr * CF/CR: 13/09 ASSESSMENT: 08/02 * Spoke with patient this AM. He has no concerns with use of his insulin pump to manage his BSGs at this time * He is having someone bring his insulin pump supplies to the hospital today. * His pump site was last changed 08/01 and he routinely changes Q 2 days. * He also has a Dexcom CGM which he has been using. He stated that the Dexcom was recalibrated against the hospital glucometer this AM. 08/01 * Bne is a 54 yo T2DM male well known to the pharmacy glycemic service from recent hospital admission * He presents today for evaluation of open wounds to the left lower leg and left foot. He has been started on daptomycin and zosyn. * He is maintained on a Novolog insulin pump as an outpatient. He had recent DM follow up on 07/31/[address] Torres. At this time, his pump settings were drastically reduced. Hospitalist prefers to continue patient on home insulin pump while admitted if possible. PLAN FOR INPATIENT GLYCEMIC CONTROL: Pt is to manage BSGs with insulin pump per outpatient settings. * Pharmacy will periodically check in with patient to assess glycemic control and address patient / nursing concerns * Patient to document BSGs and insulin doses on [id number] Flowsheet * Staff is to perform daily morning BSG to verify accuracy of CGM data. The deviation of the patients CGM value from the hospital BSG value must be less than 20%. A deviation above 20% will result in disqualification of the patient from using CGM and nursing staff will assume testing for the remainder of the day with hospital meter. It is recommended that the hospital glucose meter be used for before meal and bedtime blood glucose checks, to ensure accurate insulin dosing and to make blood glucose levels available to providers. Otherwise the patient must self-monitor blood glucose at least before meals and bedtime. If the patient becomes unable or unwilling to test at this frequency, nursing staff will assume BSG testing at the same frequency ordered by the provider If at any time the patients condition evidences that he/she is not able to manage the insulin pump (i.e. frequent hypo/hyperglycemia) Pharmacy will assume glycemic control by discontinuing the pump & managing with SQ basal bolus insulin regimen for the interim. PLAN FOR DISCHARGE: * tbd
[2020-08-02 10:10] LABS: Partial Thromboplastin Time 77.8 Seconds (21.0-31.0)
[2020-08-02] MEDS: POTASSIUM CHLORIDE PWD 20 MEQ PACK PO SCH ×2 (10:52→16:21)
[2020-08-02] MEDS: DAPTOmycin 700 MG in SYRINGE 0 ML IV SCH (14:46)
--- NOTE | 2020-08-02 15:05 | Orthopedic Consultation ---
Date of Consultation August 02, 2020 Assessment & Plan (1) Cellulitis: Cellulitis left lower extremity. Left diabetic foot ulcer lateral foot and heel ulcer. New traumatic wound left leg Foot x-ray reviewed. Gas noted on the foot x-ray. This possibly could be secondary to the open nature of his left lateral foot ulcer. However with the increasing depth of that ulcer going back in towards the heel there is concerns for possible need for further I&D. We will plan to add the patient onto the operating room schedule tomorrow for possible I&D. Dr. Bates is aware and will evaluate History of Present Illness Reason for Consultation: Left lower extremity cellulitis/left foot diabetic ulcer/new left anterior leg wound Attending Physician: Katharina Flores, DO History of Present Illness Patient is a 54-year-old male known to our practice who is status post I&D of diabetic ulcer of the left foot. He also had a heel ulcer develop over the left heel. With his chronic leg edema, its been a slow in healing. He was recently in the hospital with COVID-19, recovered well and was discharged home. During his last stay, Dr. Bates did a bedside debridement of his left foot ulcer. Coupled with that and also IV antibiotics, the patient's left diabetic foot ulcer continue to slowly improve and did not need any further irrigation debridement. The patient was seen in the wound care facility yesterday to check up on his left foot ulcer and heel ulcer. He was noted to have an increase in cellulitis up the extremity to the knee and was noted that he had a large tear or laceration below the knee over the anterior compartments that apparently occurred shortly after the patient returned home. He states he initially thought it was a skin tear. Patient denies fever or chills while at home. Denies nausea or vomiting. Wound care center felt the patient needed IV antibiotics for his cellulitis and question of further debridement of his left foot ulcer and was sent to [facility] where he was admitted by the hospitalist service. We have been asked to take care of his left foot ulcer and a new wound over the left anterior compartment of his lower leg. Currently the patient is awake and alert and he denies discomfort secondary to his neuropathy. Allergies Allergy/AdvReac Type Severity Reaction Status Date / Time benzonatate AdvReac Intermediate choking, Verified 07/31/20 11:44 gagging Home Medications Medication Instructions Recorded Confirmed Type fluticasone propionate 50 2 sprays INTNAS BID gm 12/21/17 08/01/20 History mcg/actuation nasal spray,suspension levothyroxine 100 mcg capsule 100 mcg PO QAM 12/21/17 08/01/20 History magnesium oxide 400 mg PO QAM cap 12/21/17 08/01/20 History mometasone-formoterol HFA 200 2 puffs INH BID 12/21/17 08/01/20 History mcg-5 mcg/actuation aerosol inhaler nitroglycerin 0.4 mg sublingual 0.4 mg SL Q5M PRN 12/21/17 08/01/20 History tablet omeprazole 20 mg capsule,delayed 20 mg PO QAM 12/21/17 08/01/20 History release tramadol 50 mg tablet 50 mg PO Q6H PRN 12/21/17 08/01/20 History ergocalciferol (vitamin D2) 50,000 unit PO WK 04/12/19 08/01/20 History gabapentin 300 mg PO TID 04/12/19 08/01/20 History hyoscyamine sulfate [Levsin] 0.125 mg PO TID 04/12/19 08/01/20 History atorvastatin 80 mg PO PM 01/18/20 08/01/20 History clobetasol 1 applic TOPICAL BID 01/18/20 08/01/20 History potassium chloride 20 meq PO QAM 01/18/20 08/01/20 History blood-glucose meter #1 ea 02/21/20 08/01/20 Rx insulin aspart U-100 100 unit/mL See Rx Instructions CONTINUOUS 02/29/20 08/01/20 Rx subcutaneous solution SUBCUTANEOUS INFUSION DAILY #12 ml ammonium lactate 5 % lotion 1 applic TOPICAL DAILY PRN #226 g 04/19/20 08/01/20 Rx dulaglutide 1.5 mg/0.5 mL 1.5 mg SQ WK ml 05/03/20 08/01/20 History subcutaneous pen injector albuterol sulfate [Ventolin HFA] 2 puff INHALATION QID PRN 05/30/20 08/01/20 History aspirin 81 mg PO DAILY 06/12/20 08/01/20 History torsemide 60 mg PO BID #180 tab 06/29/20 08/01/20 Rx hydrocodone 10 mg-acetaminophen 15 ml PO Q8H PRN 07/12/20 08/01/20 History 325 mg/15 mL (15 mL) oral solution warfarin 1 - 2 mg PO UD 07/12/20 08/01/20 History amiodarone 200 mg PO BID #60 tab 07/25/20 08/01/20 Rx doxycycline hyclate 100 mg capsule 100 mg PO BID 07/31/20 08/01/20 History Patient History Medical History Arthritis Asthma well controlled, daily assisted 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 Bacteremia due to group B Streptococcus CAD (coronary artery disease) Cardiac defibrillator in situ 2007 with replacement 03/2020. follows with Dr. Maya. CKD (chronic kidney disease) stage 3, GFR 30-59 ml/min Deformity of foot Depression Diabetes type 2, uncontrolled Diabetic peripheral neuropathy associated with type 2 diabetes mellitus Dyslipidemia GERD (gastroesophageal reflux disease) H/O osteomyelitis History of diabetic ulcer of foot Hx of myocardial infarction found on testing Hx of osteomyelitis Hx of sepsis 06/2019 Hypertension Hypokalemia Hypothyroidism Ischemic cardiomyopathy Adams fracture Base of left fifth metatarsal, nonhealing x years Lymphedema Morbid obesity Rectal bleeding Sleep apnea BIPAP Sustained VT (ventricular tachycardia) Venous stasis ulcer of right lower leg with edema of right lower leg Vitamin D deficiency Surgical History H/O cardiac radiofrequency ablation OCTOBER 2019 ([facility]) AT [facility] H/O foot surgery LEFT FOOT ULCER DEBRIDEMENT H/O shoulder surgery left History of cardiac cath V. tach -- no stent. 06/2019. unsure where it was done History of colonoscopy History of esophagogastroduodenoscopy (EGD) History of sinus surgery Hx of amputation of lesser toe Hx of tonsillectomy Family History Sister Family history of diabetes mellitus 2 Grandmother (Maternal) Family history of diabetes mellitus Grandfather (Maternal) Family history of diabetes mellitus Father Cancer Mother Cancer Other No family history of adverse response to anesthesia Social History Smoking Status: Never smoker Second Hand Exposure: No; Do You Dip or Chew Tobacco: No; Hx Alcohol Use: Yes Alcohol type: other Hx Substance Use: No Preferred Language: Greek Communication Ability: Effective Gaming Director Required: No Beliefs That Will Affect Care: None marital status: Current Living Situation: Spouse current occupational status: disabled Feels Safe at Home: Yes Safety Concerns: Feels Safe At This Time Assistive Devices: Walker Assistive Devices Comment: uses bipap at night. Review of Systems Review of Systems: All systems reviewed & are unremarkable except as noted in HPI & below Physical Exam Physical Exam: Patient seen in conjunction with wound care team. On my arrival, the wound care team had cleaned up the areas in question. Prior to cleaning the left foot ulcer, it was noted to have some moist yellow slough around the edges and somewhat on the wound bed itself. There was a question of a right foot ulcer however upon further inspection it appeared to be more of a blood blister type injury of which the patient states he felt happened after he had crossed his legs and bumped his foot. After cleaning it up, it was more of a superficial skin tear that developed a small hematoma under it has been essentially cleaned up. He had his left upper extremity below the knee over the anterior compartment he has a triangular-shaped laceration that appears to goes down to the muscle. There is no purulence. He does have some blood clot noted in around the area which was cleaned up by wound care team. Cellulitis. That is traveling from the foot that goes up to the noted area of laceration. His lateral left foot ulcer does not look overtly purulent. No purulence around the edges. A small amount of maceration noted. However with probing the wound, I can place the sterile cotton swab approximate 3 and half centimeters traveling posteriorly and feels like it is possibly down to the bone. There is no foul odor. There is no overt erythema around this area. Area of previous incision over the lateral foot from previous I&D continues to remain closed. Mild erythema over the dorsum of the foot. He appears to have a little more lower extremity edema than the last time I saw him. His left heel ulcer although large has dried up. Last time I saw it it had fairly macerated edges. There is no overt erythema noted. There is no overt odor noted. Wounds redressed by wound care team with Aquacel Ag in the upper leg wound as well as in the left foot ulcer. Results & Data ([facility]) Vital Signs (Past 12 Hours) Vital Signs Temp Pulse Resp BP Pulse Ox 08/02/20 07:14 36.8 C 81 18 129/65 96 Diagnostic Findings LEFT FOOT 3 VIEWS CLINICAL HISTORY: Left foot ulceration. FINDINGS: 3 views of the left foot are compared to study dated 07/12/2020. The skeletal structures are osteopenic. No acute fracture is seen. There is a subacute versus chronic fracture through the base of the fifth metatarsal. There is no bony erosion or periostitis. There are large dorsal and plantar calcaneal enthesophytes. Moderate osteoarthritic change is seen throughout the midfoot, greatest at the tarsometatarsal joints. Mild osteoarthritic change is seen at the first metatarsophalangeal joint. Subcutaneous gas is seen along the lateral aspect of the foot. Diffuse soft tissue edema is noted. Atherosclerotic calcific ation is observed in the regional arteries. IMPRESSION: 1. There is diffuse soft tissue edema with subcutaneous gas identified along the lateral aspect of foot. 2. No acute bony abnormality is identified. There is no radiographic evidence of osteomyelitis. 3. There is a subacute versus chronic fracture through the base of the fifth metatarsal. 4. Osteopenia and degenerative change as above. Electronically signed by: Lukas Trivedi M.D. 08/01/2020 4:07 PM
[2020-08-02] MEDS ORDERED: WARFARIN SOD 2 MG TAB PO SCH (16:00)
[2020-08-02 17:35] LABS: Partial Thromboplastin Ratio 1.9
[2020-08-02 17:36] LABS: Partial Thromboplastin Time 50.4 Seconds (21.0-31.0)
--- NOTE | 2020-08-02 18:08 | Anesthesiology Consultation ---
Date of Service August 02, 2020 Assessment & Plan Chart Review Chart Review: Acceptable Risk for Surgery and Patient NOT seen in Pre Admission Testing History Surgery Operation Date: 08/03/20 09:40 Proposed Procedures p Left Foot Ulcer Incision and Drainage, Incision and Drainage Tibia, Possible Wound Closure - Bg Bates DO Height/Weight Height: 6 ft Weight: 164.5 kg Allergies Allergy/AdvReac Type Severity Reaction Status Date / Time benzonatate AdvReac Intermediate choking, Verified 07/31/20 11:44 gagging Medications Home Medications Medication Instructions Recorded Confirmed Last Taken fluticasone propionate 50 2 sprays INTNAS BID gm 12/21/17 08/01/20 06/12/20 mcg/actuation nasal spray,suspension levothyroxine 100 mcg capsule 100 mcg PO QAM 12/21/17 08/01/20 06/12/20 magnesium oxide 400 mg PO QAM cap 12/21/17 08/01/20 06/12/20 mometasone-formoterol HFA 200 2 puffs INH BID 12/21/17 08/01/20 06/12/20 mcg-5 mcg/actuation aerosol inhaler nitroglycerin 0.4 mg sublingual 0.4 mg SL Q5M PRN 12/21/17 08/01/20 Unknown tablet omeprazole 20 mg capsule,delayed 20 mg PO QAM 12/21/17 08/01/20 06/12/20 release tramadol 50 mg tablet 50 mg PO Q6H PRN 12/21/17 08/01/20 05/31/20 ergocalciferol (vitamin D2) 50,000 unit PO WK 04/12/19 08/01/20 06/12/20 gabapentin 300 mg PO TID 04/12/19 08/01/20 06/12/20 hyoscyamine sulfate [Levsin] 0.125 mg PO TID 04/12/19 08/01/20 06/12/20 atorvastatin 80 mg PO PM 01/18/20 08/01/20 06/12/20 clobetasol 1 applic TOPICAL BID 01/18/20 08/01/20 06/12/20 potassium chloride 20 meq PO QAM 01/18/20 08/01/20 06/12/20 blood-glucose meter #1 ea 02/21/20 08/01/20 Unknown insulin aspart U-100 100 unit/mL See Rx Instructions CONTINUOUS 02/29/20 08/01/20 06/01/20 07:45 subcutaneous solution SUBCUTANEOUS INFUSION DAILY #12 ml ammonium lactate 5 % lotion 1 applic TOPICAL DAILY PRN #226 g 04/19/20 08/01/20 Unknown dulaglutide 1.5 mg/0.5 mL 1.5 mg SQ WK ml 05/03/20 08/01/20 06/10/20 subcutaneous pen injector albuterol sulfate [Ventolin HFA] 2 puff INHALATION QID PRN 05/30/20 08/01/20 Unknown aspirin 81 mg PO DAILY 06/12/20 08/01/20 06/12/20 torsemide 60 mg PO BID #180 tab 06/29/20 08/01/20 Unknown hydrocodone 10 mg-acetaminophen 15 ml PO Q8H PRN 07/12/20 08/01/20 Unknown 325 mg/15 mL (15 mL) oral solution warfarin 1 - 2 mg PO UD 07/12/20 08/01/20 Unknown amiodarone 200 mg PO BID #60 tab 07/25/20 08/01/20 Unknown doxycycline hyclate 100 mg capsule 100 mg PO BID 07/31/20 08/01/20 Unknown Active Medications Generic Name Dose Route Start Last Admin Trade Name Freq PRN Reason Stop Dose Admin Hydrocodone Bitart/Acetaminophen 1 tab 08/01/20 18:09 08/02/20 08:41 Hydrocodone/Acetaminophen 10/325 Tab PO 08/15/20 18:08 1 tab Q8H PRN Administration Pain Amiodarone HCl 200 mg 08/01/20 21:00 08/02/20 08:34 Amiodarone 200 Mg Tab PO 08/31/20 20:59 200 mg BID MATT Administration Aspirin 81 mg 08/02/20 09:00 08/02/20 08:34 Aspirin 81 Mg Ectab PO 09/01/20 08:59 81 mg DAILY MATT Administration Atorvastatin Calcium 80 mg 08/01/20 21:00 08/01/20 20:54 Atorvastatin 40 Mg Tab PO 08/31/20 20:59 80 mg PM MATT Administration Clobetasol Propionate 1 appln 08/01/20 21:00 08/02/20 08:33 Clobetasol Propionate 0.05% Oint 15 Gm Tube EXT 08/31/20 20:59 Not Given BID MATT Fluticasone Propionate 2 sprays 08/01/20 21:00 08/02/20 08:33 Fluticasone Propionate Na Spr 16 Gm Btl NA 08/31/20 20:59 2 sprays BID MATT Administration Fluticasone/Vilanterol 1 puffs 08/01/20 21:00 08/01/20 20:54 Fluticasone/Vilanterol 200/25mcg 14 Puffs/Inhaler INH 08/31/20 20:59 1 puffs QPM MATT Administration Gabapentin 300 mg 08/01/20 21:00 08/02/20 14:46 Gabapentin 300 Mg Cap PO 08/31/20 20:59 300 mg TID MATT Administration Guaifenesin 600 mg 08/01/20 21:00 08/02/20 08:34 Guaifenesin 600 Mg Tabcr PO 08/31/20 20:59 600 mg Q12 MATT Administration Hyoscyamine 0.125 mg 08/01/20 21:00 08/02/20 14:46 Hyoscyamine Sulfate 0.125 Mg Tab PO 08/31/20 20:59 0.125 mg TID MATT Administration Piperacillin Sod/Tazobactam 120 mls @ 30 mls/hr 08/01/20 20:00 08/02/20 17:20 Sod 4.5 gm/ Dextrose IV 08/08/20 19:59 Infused Q8H MATT Infusion Protocol Daptomycin 700 mg/ Syringe 14 mls @ 7 mls/min 08/02/20 14:00 08/02/20 14:46 IV 08/08/20 13:59 7 mls/min Q24H MATT Administration Protocol Heparin Sodium/Dextrose 25,000 units in 500 mls @ 37 mls/hr 08/01/20 17:45 08/02/20 17:48 Heparin Sodium/Dextrose IV 08/31/20 17:44 1,850 units/hr .[id number] MATT 37 mls/hr Titration Protocol 1,850 UNITS/HR Insulin Aspart 1 ea 08/01/20 21:00 08/02/20 17:53 Novolog Insulin Pump N/A 08/31/20 20:59 1 ea ACHS MATT Administration Protocol Levothyroxine Sodium 100 mcg 08/02/20 06:30 08/02/20 05:47 Levothyroxine Sodium 100 Mcg Tablet PO 09/01/20 06:29 100 mcg DAILYBB MATT Administration Magnesium Oxide 400 mg 08/02/20 09:00 08/02/20 08:35 Magnesium Oxide 400 Mg Tab PO 09/01/20 08:59 400 mg QAM MATT Administration Menthol 1 raphael 08/01/20 19:47 08/01/20 20:33 Cough Drop (Sugar Free) Raphael 24 Raphael/1 Box BUCCAL 08/31/20 19:46 1 raphael PRN PRN Administration Cough Pantoprazole Sodium 40 mg 08/02/20 09:00 08/02/20 08:35 Pantoprazole 40 Mg Tab PO 09/01/20 08:59 40 mg QAM MATT Administration Potassium Chloride 20 meq 08/02/20 09:00 08/02/20 08:34 Potassium Chloride Crtab 20 Meq Tabcr PO 09/01/20 08:59 20 meq QAM MATT Administration Torsemide 60 mg 08/01/20 18:00 08/02/20 16:26 Torsemide 20 Mg Tab PO 08/31/20 17:59 60 mg [id number] MATT Administration Tramadol HCl 50 mg 08/01/20 17:28 08/02/20 03:16 Tramadol Hcl 50 Mg Tablet PO 08/31/20 17:27 50 mg Q6H PRN Administration pain NPO Date Last Intake of Fluids: 08/02/20 Date Last Intake of Solids: 08/02/20 Past Medical History Medical History Arthritis Asthma well controlled, daily keeper head 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 Bacteremia due to group B Streptococcus CAD (coronary artery disease) Cardiac defibrillator in situ 2007 with replacement 03/2020. follows with Dr. Maya. CKD (chronic kidney disease) stage 3, GFR 30-59 ml/min Deformity of foot Depression Diabetes type 2, uncontrolled Diabetic peripheral neuropathy associated with type 2 diabetes mellitus Dyslipidemia GERD (gastroesophageal reflux disease) H/O osteomyelitis History of diabetic ulcer of foot Hx of myocardial infarction found on testing Hx of osteomyelitis Hx of sepsis 06/2019 Hypertension Hypokalemia Hypothyroidism Ischemic cardiomyopathy Adams fracture Base of left fifth metatarsal, nonhealing x years Lymphedema Morbid obesity Rectal bleeding Sleep apnea BIPAP Sustained VT (ventricular tachycardia) Venous stasis ulcer of right lower leg with edema of right lower leg Vitamin D deficiency Past Family History Family History Sister Family history of diabetes mellitus 2 Grandmother (Maternal) Family history of diabetes mellitus Grandfather (Maternal) Family history of diabetes mellitus Father Cancer Mother Cancer Other No family history of adverse response to anesthesia Past Surgical History Surgical History H/O cardiac radiofrequency ablation OCTOBER 2019 ([facility]) AT [facility] H/O foot surgery LEFT FOOT ULCER DEBRIDEMENT H/O shoulder surgery left History of cardiac cath V. tach -- no stent. 06/2019. unsure where it was done History of colonoscopy History of esophagogastroduodenoscopy (EGD) History of sinus surgery Hx of amputation of lesser toe Hx of tonsillectomy Social History Smoking Status: Never smoker Do You Dip or Chew Tobacco: No Hx Alcohol Use: Yes Alcohol type: other alcohol intake frequency: holidays/special occasions only Hx Substance Use: No substance use type: does not use Physical Exam Vital Signs Last Vital Signs Temp 36.7 C 08/02/20 15:39 Pulse 84 08/02/20 15:39 Resp 18 08/02/20 15:39 BP 121/73 08/02/20 15:39 Pulse Ox 97 08/02/20 15:39 Testing Laboratory Results 08/02/20 02:48 08/02/20 02:48 PT 14.7 Seconds (9.0-12.0) H 08/02/20 02:48 INR 1.5 (0.9-1.1) H 08/02/20 02:48 APTT 50.4 Seconds (21.0-31.0) H* 08/02/20 17:02 08/01/20 13:55 Aerobic Blood Culture - Preliminary Blood No growth in Aerobic bottle after 24 hours. Anaerobic Blood Culture - Preliminary No growth in Anaerobic bottle after 24 hours. 08/01/20 14:14 Aerobic Blood Culture - Preliminary Blood No growth in Aerobic bottle after 24 hours. Anaerobic Blood Culture - Preliminary No growth in Anaerobic bottle after 24 hours. 08/02/20 08/02/20 08/02/20 17:07 12:14 08:16 POC Glucose 162 H 264 H 137 H Electrocardiogram Date: 07/22/20 Findings: + AFIB @ (92) Atrial fibrillation with premature ventricular or aberrantly conducted complexes Anterior infarct (cited on or before 13-JUN-2020) Abnormal ECG When compared with ECG of 12-JUL-2020 16:57, Questionable change in initial forces of Anterior leads Nonspecific T wave abnormality now evident in Inferior leads Nonspecific T wave abnormality, worse in Lateral leads Echocardiogram Date: 05/26/19 EF: 30-35 LV Function: dysfunctional RWMA: + akinetic Other Findings: + LVH
--- NOTE | 2020-08-02 19:36 | Hospitalist Progress Note ---
Date of Service August 02, 2020 Assessment & Plan (1) Traumatic open wound of left lower leg: wound consult with recs. Packing in place. Change as needed. Cont abx pending culture results. (2) Diabetic ulcer of right foot: cont wound care, abx as above. (3) Cellulitis of left lower leg: cont abx. Ortho to debride in am. (4) Sustained ventricular tachycardia: h/o this with ICD placement in October 2019, recently required reloading with amiodarone in last couple of weeks. Maintains sinus rhythm on PO amiodarone. (5) CAD (coronary artery disease): -Continue torsemide 60 mg twice daily, ASA 81 mg daily, atorvastatin 80 mg qPM (6) Atrial fibrillation: -Rate control with amiodarone, cont heparin drip pending upcoming procedure. When complete start back on coumadin once ok with surgery. (7) CKD (chronic kidney disease) stage 3, GFR 30-59 ml/min: creatinine around his baseline. (8) Diabetes type 2, uncontrolled: -Last A1c 7.6, uncontrolled -Following with Dr. Euceda as an outpatient -Cont home CGM and insulin pump, glycemic pharmacist consulted during admission, continue ISS with ACHS glucose monitoring (9) Diabetic peripheral neuropathy associated with type 2 diabetes mellitus: cont multi-pronged treatment approach including glucose control and gabapentin (10) Morbid obesity: (11) Hypothyroidism: -Continue levothyroxine 100 mcg daily (12) Cellulitis: cont abx pending further improvement and culture results. (13) Ischemic cardiomyopathy: -appears compensated, however, body habitus makes that difficult to tell. Continue torsemide 60 mg twice daily, ASA 81 mg daily, atorvastatin 80 mg qPM (on temporary hold in setting of daptomycin) -Volume status appears euvolemic currently -Pt missed morning dose of torsemide today (14) DVT prophylaxis: heparin drip Full Code Dispo-uncertain at this time. Katharina Flores DO [facility] Hospitalist Admission and Anticipated Discharge Date Admission Date: August 01, 2020 Subjective 54 yo obese, diabetic man with recent hospitalization for diabetic foot infection with pseudomonas in addition to covid pneumonia, now admitted for new LLE wound with worsening cellulitis not responsive to outpatient doxycycline. -ortho planning for left foot ulcer I&D with debridement as needed in am. -patient denies pain -new LLE wound on anterior LLE is packed with significant drainage. -some improvement to erythema -tolerating PO -afebrile -patient denies any worsening SOB or weight gain Review of Systems Review of Systems: All systems reviewed & are unremarkable except as noted in Subjective Physical Exam Physical Exam: CONSTITUTIONAL: obese, vitals as above, generally well- appearing EYES: normal conjunctivae, no scleral icterus ENT: external ear and nose normal, MMM RESPIRATORY: clear to auscultation bilaterally, no crackles, rales or wheezes, normal respiratory effort CARDIOVASCULAR: regular rate and rhythm, S1 and 2 heard without murmurs, gallops or rubs, no JVD, no peripheral edema CHEST: +ICD GASTROINTESTINAL: soft, protuberant, nondistended. MUSCULOSKELETAL: strength 5/5 throughout, head is normocephalic and atraumatic SKIN: warm and dry, +LLE anterior wound with drainage and packing, erythema consistent with LLE is somewhat improved/receded from marker line drawn yesterday. Other known foot wounds are wrapped and as described in wound care notes. Dressings for these are c/d/i. NEUROLOGIC: CN 2-12 grossly intact, normal cognition, normal speech, decreased sensation of feet bilaterally. PSYCHIATRIC: alert cooperative and oriented to person, place and time. Results & Data Results & Data ([facility]) Vital Signs (Past 12 Hours) Vital Signs Temp Pulse Resp BP Pulse Ox 08/02/20 15:39 36.7 C 84 18 121/73 97 Laboratory Results Short CBC 08/02/20 Range/Units 02:48 WBC 10.35 (4.8-10.8) K/uL Hgb 11.0 L (14.0-18.0) g/dL Hct 34.8 L (42-52) % Plt Count 301 (130-400) K/uL BMP 08/02/20 02:48 Sodium 139 Potassium 3.2 L Chloride 103 Carbon Dioxide 32 BUN 22 H Creatinine 1.33 Glucose 131 H Calcium 8.3 L Liver Function 08/02/20 Range/Units 02:48 Total Bilirubin 1.0 (0.2-1) mg/dl AST 15 (15-37) U/L ALT 17 (12-78) U/L Alkaline Phosphatase 127 H (45-117) U/L Albumin 1.8 L (3.4-5.0) gm/dl Medications Administered Current Inpatient Medications Acetaminophen (Acetaminophen 325 Mg Tab) 650 mg PO Q4H PRN PRN Reason: Moderate Pain Stop: 08/31/20 17:27 Hydrocodone Bitart/Acetaminophen (Hydrocodone/Acetaminophen 10/325 Tab) 1 tab PO Q8H PRN PRN Reason: Pain Stop: 08/15/20 18:08 Last Admin: 08/02/20 08:41 Dose: 1 tab Documented by: Albuterol (Albuterol Hfa 8 Gm Inhaler) 2 puffs INH QID PRN PRN Reason: SHORT OF BREATH Stop: 08/31/20 17:27 Amiodarone HCl (Amiodarone 200 Mg Tab) 200 mg PO BID MATT Stop: 08/31/20 20:59 Last Admin: 08/02/20 08:34 Dose: 200 mg Documented by: Aspirin (Aspirin 81 Mg Ectab) 81 mg PO DAILY MATT Stop: 09/01/20 08:59 Last Admin: 08/02/20 08:34 Dose: 81 mg Documented by: Atorvastatin Calcium (Atorvastatin 40 Mg Tab) 80 mg PO PM MATT Stop: 08/31/20 20:59 Last Admin: 08/01/20 20:54 Dose: 80 mg Documented by: Clobetasol Propionate (Clobetasol Propionate 0.05% Oint 15 Gm Tube) 1 appln EXT BID MATT Stop: 08/31/20 20:59 Last Admin: 08/02/20 08:33 Dose: Not Given Documented by: Dextrose (Dextrose 50% 50 Ml Syringe) 25 - 50 ml IV UD PRN; Protocol PRN Reason: Hypoglycemia Protocol Stop: 08/31/20 17:29 Ergocalciferol (Ergocalciferol 50,000 Units 1250 Mcg Cap) 50,000 units PO Tu@0900 MATT Stop: 09/06/20 08:59 Fluticasone Propionate (Fluticasone Propionate Na Spr 16 Gm Btl) 2 sprays NA BID MATT Stop: 08/31/20 20:59 Last Admin: 08/02/20 08:33 Dose: 2 sprays Documented by: Fluticasone/Vilanterol (Fluticasone/Vilanterol 200/25mcg 14 Puffs/Inhaler) 1 puffs INH QPM MATT Stop: 08/31/20 20:59 Last Admin: 08/01/20 20:54 Dose: 1 puffs Documented by: Gabapentin (Gabapentin 300 Mg Cap) 300 mg PO TID MATT Stop: 08/31/20 20:59 Last Admin: 08/02/20 14:46 Dose: 300 mg Documented by: Glucagon (Glucagon For Inj 1 Mg Vial) 1 mg SQ UD PRN; Protocol PRN Reason: Hypoglycemia Protocol Stop: 08/31/20 17:29 Glucose (Glucose 40% Gel 15 Gm Tube) 15 - 30 gm PO UD PRN; Protocol PRN Reason: Hypoglycemia Protocol Stop: 08/31/20 17:29 Glucose (Glucose 10 Tabs/Tube) 4 - 8 tabs PO UD PRN; Protocol PRN Reason: Hypoglycemia Protocol Stop: 08/31/20 17:29 Guaifenesin (Guaifenesin 600 Mg Tabcr) 600 mg PO Q12 COUNTS INCLUDE 234 BEDS AT THE [facility] Stop: 08/31/20 20:59 Last Admin: 08/02/20 08:34 Dose: 600 mg Documented by: Hyoscyamine (Hyoscyamine Sulfate 0.125 Mg Tab) 0.125 mg PO TID COUNTS INCLUDE 234 BEDS AT THE [facility] Stop: 08/31/20 20:59 Last Admin: 08/02/20 14:46 Dose: 0.125 mg Documented by: Piperacillin Sod/Tazobactam (Sod 4.5 gm/ Dextrose) 120 mls @ 30 mls/hr IV Q8H COUNTS INCLUDE 234 BEDS AT THE [facility]; Protocol Stop: 08/08/20 19:59 Last Infusion: 08/02/20 17:20 Dose: Infused Documented by: Daptomycin 700 mg/ Syringe 14 mls @ 7 mls/min IV Q24H COUNTS INCLUDE 234 BEDS AT THE [facility]; Protocol Stop: 08/08/20 13:59 Last Admin: 08/02/20 14:46 Dose: 7 mls/min Documented by: Heparin Sodium/Dextrose (Heparin Sodium/Dextrose) 25,000 units in 500 mls @ 37 mls/hr IV .[id number] COUNTS INCLUDE 234 BEDS AT THE [facility]; Protocol Stop: 08/31/20 17:44 Last Titration: 08/02/20 17:48 Dose: 1,850 units/hr, 37 mls/hr Documented by: Insulin Aspart (Novolog Insulin Pump) 1 ea N/A ACHS COUNTS INCLUDE 234 BEDS AT THE [facility]; Protocol Stop: 08/31/20 20:59 Last Admin: 08/02/20 17:53 Dose: 1 ea Documented by: Insulin Aspart (Insulin Aspart 100 Units/Ml Vial) 0 units SC PRN PRN PRN Reason: PUMP REFILL Stop: 08/31/20 17:29 Lactic Acid (Ammonium Lactate 12% Lotion 225 Gm Btl) 1 gm EXT DAILY PRN PRN Reason: dry skin Stop: 08/31/20 17:27 Levothyroxine Sodium (Levothyroxine Sodium 100 Mcg Tablet) 100 mcg PO DAILYBB COUNTS INCLUDE 234 BEDS AT THE [facility] Stop: 09/01/20 06:29 Last Admin: 08/02/20 05:47 Dose: 100 mcg Documented by: Magnesium Oxide (Magnesium Oxide 400 Mg Tab) [facility] Stop: 09/01/20 08:59 Last Admin: 08/02/20 08:35 Dose: 400 mg Documented by: Menthol (Cough Drop (Sugar Free) Raphael 24 Raphael/1 Box) 1 raphael BUCCAL PRN PRN PRN Reason: Cough Stop: 08/31/20 19:46 Last Admin: 08/01/20 20:33 Dose: 1 raphael Documented by: Miscellaneous (Carbohydrates For Hypoglycemia ) 15 - 30 gm PO UD PRN PRN Reason: Hypoglycemia Treatment Stop: 08/31/20 17:29 Miscellaneous Information (Daptomycin Consult Active) 1 ea N/A UD PRN PRN Reason: Consult Stop: 08/31/20 13:14 Miscellaneous Information (Piperacill/Tazobac Consult Active) 1 ea N/A UD PRN PRN Reason: Consult Stop: 08/31/20 13:14 Miscellaneous Information (Pharmacy Glycemic Mgmt Consult) 1 ea N/A UD PRN PRN Reason: Consult Stop: 08/31/20 17:02 Ondansetron HCl (Ondansetron Inj 2 Mg/Ml 2 Ml Vial) 4 mg IV Q4H PRN PRN Reason: Nausea And Vomiting Stop: 08/31/20 17:27 Pantoprazole Sodium (Pantoprazole 40 Mg Tab) 40 mg PO [facility] Stop: 09/01/20 08:59 Last Admin: 08/02/20 08:35 Dose: 40 mg Documented by: Potassium Chloride (Potassium Chloride Crtab 20 Meq Tabcr) 20 meq PO [facility] Stop: 09/01/20 08:59 Last Admin: 08/02/20 08:34 Dose: 20 meq Documented by: Torsemide (Torsemide 20 Mg Tab) 60 mg PO BID17 COUNTS INCLUDE 234 BEDS AT THE [facility] Stop: 08/31/20 17:59 Last Admin: 08/02/20 16:26 Dose: 60 mg Documented by: Tramadol HCl (Tramadol Hcl 50 Mg Tablet) 50 mg PO Q6H PRN PRN Reason: pain Stop: 08/31/20 17:27 Last Admin: 08/02/20 03:16 Dose: 50 mg Documented by:
[2020-08-02] MEDS: FLUTICASONE/VILANTEROL 200/25MCG 14 PUFFS/INHALER INH SCH (20:34)
[2020-08-03] MEDS: PIPERACILLIN/TAZOBACTAM 4.5 GM in DEXTROSE 5% 100 ML IV SCH ×3 (04:21→20:40)
[2020-08-03] MEDS: LEVOTHYROXINE SODIUM 100 MCG TABLET PO SCH (06:10)
[2020-08-03 06:23] LABS: Basophils # (auto) 0.05 K/uL (0-0.2); Basophils % (auto) 0.5 %; Eosinophils # (auto) 0.15 K/uL (0-0.5); Eosinophils % (auto) 1.6 %; Hematocrit (blood only) 38.9 % (42-52); Hemoglobin 12.3 g/dL (14.0-18.0); Immature Granulocytes # (auto) 0.06 K/uL (0.00-0.02); Immature Granulocytes % (auto) 0.6 %; Lymphocytes # (auto) 0.94 K/uL (1.2-3.4); Lymphocytes % (auto) 9.8 %; Mean Corpuscular Hemoglobin 27.6 pg (25-34); Mean Corpuscular Hgb Conc 31.6 g/dL (32-36); Mean Corpuscular Volume 87.4 fL (80-100); Mean Platelet Volume 9.2 fL (7.4-10.4); Monocytes # (auto) 0.96 K/uL (0.11-0.59); Neutrophils # (auto) 7.46 K/uL (1.4-6.5); Neutrophils % (auto) 77.5 %; Platelet Count 300 K/uL (130-400); RDW Coefficient of Variation 18.9 % (11.5-14.5); RDW Standard Deviation 59.5 fL (36.4-46.3); Red Blood Count 4.45 M/uL (4.7-6.1); White Blood Count 9.62 K/uL (4.8-10.8)
[2020-08-03 06:43] LABS: INR 1.4 (0.9-1.1); Partial Thromboplastin Ratio 1.1; Partial Thromboplastin Time 29.3 Seconds (21.0-31.0); Prothrombin Time 14.1 Seconds (9.0-12.0)
[2020-08-03 06:52] LABS: Albumin Level 2.3 gm/dl (3.4-5.0); Calcium 9.2 mg/dl (8.5-10.1); Creatinine Clr Calc Pharmacy 92.7 ml/min; Est GFR (African American) 63.5; Est GFR (Non-African American) 54.8; Potassium 3.4 mmol/L (3.5-5.1)
[2020-08-03 06:54] LABS: Albumin Globulin Ratio 0.4 (0.9-2); Globulin 6.4 gm/dl (2.5-4.0); Total Protein 8.7 gm/dl (6.4-8.2)
[2020-08-03] MEDS: NovoLOG INSULIN PUMP SCH ×4 (08:24→21:59)
[2020-08-03] MEDS: AMIODARONE 200 MG TAB PO SCH ×2 (08:25→20:34)
[2020-08-03] MEDS: CLOBETASOL PROPIONATE 0.05% OINT 15 GM TUBE EXT SCH ×2 (08:25→20:34)
[2020-08-03] MEDS: ASPIRIN 81 MG ECTAB PO SCH (08:26)
[2020-08-03] MEDS: HYOSCYAMINE SULFATE 0.125 MG TAB PO SCH ×3 (08:26→20:35)
[2020-08-03] MEDS: guaiFENesin 600 MG TABCR PO SCH ×2 (08:26→20:35)
[2020-08-03] MEDS: FLUTICASONE PROPIONATE NA SPR 16 GM BTL SCH ×2 (08:26→20:34)
[2020-08-03] MEDS: MAGNESIUM OXIDE 400 MG TAB PO SCH (08:26)
[2020-08-03] MEDS: POTASSIUM CHLORIDE CRTAB 20 MEQ TABCR PO SCH (08:26)
[2020-08-03] MEDS: GABAPENTIN 300 MG CAP PO SCH ×3 (08:26→20:34)
[2020-08-03] MEDS: TORSEMIDE 20 MG TAB PO SCH ×2 (08:26→15:29)
[2020-08-03] MEDS: PANTOprazole 40 MG TAB PO SCH (08:26)
--- NOTE | 2020-08-03 10:08 | History & Physical Bridge Note ---
Date of Service August 03, 2020 History & Physical Bridge Note I have examined the patient, reviewed the History & Physical and in the interval since the performance of the History & Physical I have noted the following changes of clinical significance: no changes noted
[2020-08-03] MEDS ORDERED: BUPIVACAINE 0.5 % 5 MG/1 ML MPF 30ML VIAL ONE (10:09)
[2020-08-03] MEDS ORDERED: BACITRACIN INJ 50,000 UNIT VIAL ONE ×2 (10:09→10:26)
[2020-08-03] MEDS ORDERED: ATROPINE SULFATE 0.1 MG/ML 10ML SYR IV PRN (10:11)
[2020-08-03] MEDS ORDERED: fentaNYL citrate 100 MCG/2 ML VIAL IV PRN (10:11)
[2020-08-03] MEDS ORDERED: ePHEDrine sulfate 50 MG/ML AMP IV PRN (10:11)
[2020-08-03] MEDS ORDERED: ONDANSETRON INJ 2 MG/ML 2 ML VIAL IV PRN ×2 (10:11→12:06)
[2020-08-03] MEDS ORDERED: GENTAMICIN SULFATE 40 MG/ML 2 ML VIAL ONE (10:25)
[2020-08-03] MEDS ORDERED: VANCOMYCIN HCL 1000MG/20ML VIAL ONE ×2 (10:26→10:30)
--- NOTE | 2020-08-03 10:31 | Pharmacy Report ---
Pharmacy Glycemic Short Note 2 - Date of Service August 03, 2020 - Glycemic Short BSG Results (Last 24 hours): 08/02/20 08/02/20 08/02/20 12:14 17:07 20:31 Glucose POC Glucose 264 H 162 H 157 H 08/03/20 08/03/20 08/03/20 02:55 05:32 05:49 Glucose 91 POC Glucose 98 113 H 08/03/20 09:37 Glucose POC Glucose 92 OUTPATIENT ANTIDIABETIC REGIMEN: * Novolog insulin pump * Basal rate: 2 units/hr * CF/CR: 13/09 ASSESSMENT: 08/03 * BSGs have been well controlled. Patient was NPO after midnight for procedure this morning, diet resumed with lunch * Patient continues to manage insulin pump 08/02 * Spoke with patient this AM. He has no concerns with use of his insulin pump to manage his BSGs at this time * He is having someone bring his insulin pump supplies to the hospital today. * His pump site was last changed 08/01 and he routinely changes Q 2 days. * He also has a Dexcom CGM which he has been using. He stated that the Dexcom was recalibrated against the hospital glucometer this AM. 08/01 * Ben is a 54 yo T2DM male well known to the pharmacy glycemic service from recent hospital admission * He presents today for evaluation of open wounds to the left lower leg and left foot. He has been started on daptomycin and zosyn. * He is maintained on a Novolog insulin pump as an outpatient. He had recent DM follow up on 07/31/[address] Torres. At this time, his pump settings were drastically reduced. Hospitalist prefers to continue patient on home insulin pump while admitted if possible. PLAN FOR INPATIENT GLYCEMIC CONTROL: Pt is to manage BSGs with insulin pump per outpatient settings. * Pharmacy will periodically check in with patient to assess glycemic control and address patient / nursing concerns * Patient to document BSGs and insulin doses on [id number] Flowsheet * Staff is to perform daily morning BSG to verify accuracy of CGM data. The deviation of the patients CGM value from the hospital BSG value must be less than 20%. A deviation above 20% will result in disqualification of the patient from using CGM and nursing staff will assume testing for the remainder of the day with hospital meter. It is recommended that the hospital glucose meter be used for before meal and bedtime blood glucose checks, to ensure accurate insulin dosing and to make blood glucose levels available to providers. Otherwise the patient must self-monitor blood glucose at least before meals and bedtime. If the patient becomes unable or unwilling to test at this frequency, nursing staff will assume BSG testing at the same frequency ordered by the provider If at any time the patients condition evidences that he/she is not able to manage the insulin pump (i.e. frequent hypo/hyperglycemia) Pharmacy will assume glycemic control by discontinuing the pump & managing with SQ basal bolus insulin regimen for the interim. PLAN FOR DISCHARGE: * tbd
[2020-08-03] MEDS ORDERED: NALOXONE HCL 0.4 MG/1 ML VIAL/CARP IV PRN (12:06)
[2020-08-03] MEDS ORDERED: diphenhydrAMINE Capsule 25 MG CAP PO PRN (12:06)
[2020-08-03] MEDS ORDERED: METOCLOPRAMIDE HCL INJ 5 MG/ML 2 ML VIAL IV PRN (12:06)
[2020-08-03] MEDS ORDERED: bisacodyL 10 MG SUPP PR PRN (12:06)
--- NOTE | 2020-08-03 12:33 | Post Operative Brief Note ---
Immediate Post Op Note v1 Date of Surgery August 03, 2020 Pre & Post Diagnosis Operation Date: 08/03/20 09:40 Pre-Op Diagnosis: Left lateral foot diabetic ulcer 5.5 x 4 x 3 0.9 x 2 cm; lateral heel diabetic ulcer 6.5 x 4.5 x 0.6 cm; left lateral tibia complex laceration 8 x 6 0.2 x 5.5 x 2.8 cm; infected hematoma left lower extremity; osteomyelitis fifth metatarsal; osteomyelitis cuboid; osteomyelitis calcaneus; left lower extremity cellulitis/left foot diabetic ulcer Post-Op Diagnosis: Left lateral foot diabetic ulcer 5.5 x 4 x 3 0.9 x 2 cm; lateral heel diabetic ulcer 6.5 x 4.5 x 0.6 cm; left lateral tibia complex laceration 8 x 6 0.2 x 5.5 x 2.8 cm; infected hematoma left lower extremity; osteomyelitis fifth metatarsal; osteomyelitis cuboid; osteomyelitis calcaneus; left lower extremity cellulitis/left foot diabetic ulcer; infected exposed peroneus brevis tendon I identified the patient and participated in the time-out.: Yes Procedure Operation Date: 08/03/20 09:40 Actual Procedures p Left Lateral Foot Ulcer irrigation and debridement measuring 5.5cm x 4cm x 3.9cm x 2cm deep, Left heel Ulcer irrigation debridement measuring 6.5cm x 4.5cm x0.6cm deep, irrigation and debridement lateral Tibia large complex laceration 8 cm x 6.2 cm x 5.5cm x 2.8 cm deep, irrigation debridement multiple sites including skin/subcutaneous tissue/fascia/muscle/periosteum (Left) - Bg Bates DO s exostectomy 4th metatarsal base, exostectomy cuboid and exostectomy calcaneus (Left) - Bg Bates DO s Evacuation infected hematoma left lower leg, resection exposed devitalized infected peroneus brevis tendon, (Left) - Bg Bates DO Surgeon Bg Bates DO Doper Operator Leo Yanes PA-C Estimated Blood Loss 35 Findings Consistent with Post-Op Diagnosis Specimens Aerobic anaerobic Gram stain deep complex laceration/hematoma lateral LE Drains Hemovac Drain (10 FR TROCAR X2) Anesthesia Type General Disposition Accompanied Patient To Recovery: Yes Disposition: Recovery Room
--- NOTE | 2020-08-03 12:34 | Anesthesiology Progress Note ---
Date of Service August 03, 2020 Anesthesia Post Procedure Vital Signs Vital Signs: Temp Pulse Pulse Resp BP BP Pulse Ox 08/03/20 12:30 110 H 18 131/81 93 08/03/20 12:15 114 H 20 142/79 H 97 08/03/20 12:05 97.5 F L 124 H 18 138/87 100 08/03/20 09:30 97.5 F L 108 H 22 91 08/03/20 08:03 97.9 F 87 126/76 08/02/20 22:32 97.9 F 92 H 20 104/68 98 08/02/20 15:39 98.1 F 84 18 121/73 97 Pain Intensity Other: Pain Intensity: 8 Left Lower Leg: Pain Intensity: 3 Left Knee: Pain Intensity: 8 Transfer of Care Handoff Completed per policy Notes Mental Status: alert / awake / arousable and participated in evaluation Patient Amnestic to Procedure: Yes Nausea / Vomiting: adequately controlled Pain: adequately controlled Airway Patency, RR, SpO2: stable & adequate BP & HR: stable & adequate Hydration State: stable & adequate Anesthetic Complications: no major complications apparent and Pt Satisfied with anesthetic care
[2020-08-03] MEDS: traMADol HCL 50 MG TABLET PO PRN (13:10)
[2020-08-03] MEDS: DAPTOmycin 700 MG in SYRINGE 0 ML IV SCH (13:18)
--- NOTE | 2020-08-03 14:55 | Operative Report (OR) ---
DATE OF OPERATION: 08/03/2020 PREOPERATIVE DIAGNOSES: 1. Left lateral foot diabetic ulcer measuring 5.5 x 4 x 3.9 x 2 cm. 2. Left lateral heel diabetic ulcer 6.5 x 4.5 x 0.6 cm. 3. Left lateral tibia complex laceration measuring 8 x 6.2 x 5.5 x 2.8 cm. 4. Infected hematoma, left lateral lower extremity. 5. Osteomyelitis of fifth metatarsal base. 6. Osteomyelitis of the cuboid. 7. Osteomyelitis of the lateral calcaneus. 8. Left lower extremity cellulitis. POSTOPERATIVE DIAGNOSES: 1. Left lateral foot diabetic ulcer measuring 5.5 x 4 x 3.9 x 2 cm. 2. Left lateral heel diabetic ulcer 6.5 x 4.5 x 0.6 cm. 3. Left lateral tibia complex laceration measuring 8 x 6.2 x 5.5 x 2.8 cm. 4. Infected hematoma, left lateral lower extremity. 5. Osteomyelitis of fifth metatarsal base. 6. Osteomyelitis of the cuboid. 7. Osteomyelitis of the lateral calcaneus. 8. Left lower extremity cellulitis. 9. Infected exposed devitalized peroneus brevis tendon. PROCEDURES: 1. Left lateral foot ulcer irrigation and debridement measuring 5.5 cm x 4 cm x 3.9 cm x 2 cm deep. 2. Left heel diabetic ulceration irrigation and debridement measuring 6.5 cm x 4.5 cm x 0.6 cm deep. 3. Irrigation and debridement of lateral tibial large complex laceration measuring 8 cm x 6.2 cm x 5.5 cm x 2.8 cm deep. 4. Irrigation and debridement of multiple sites including skin, subcutaneous tissue, fascia, muscle and periosteum. 5. Exostectomy of fifth metatarsal base. 6. Exostectomy of cuboid. 7. Exostectomy of the calcaneus. 8. Evacuation of infected hematoma, left lower leg. 9. Resection of exposed, devitalized, infected peroneus brevis tendon, left. 10. Application of Stimulan antibiotic beads 10 cc with 2 grams of vancomycin and 1 gram of gentamicin. SURGEON: Bg Bates DO. REORDERING CLERK: Leo Yanes PA-C who was present for patient positioning, sterile prep and drape, management of retractors and instruments. He was present through the critical portions of the case including wound closure, application of sterile dressing and transport of the patient to recovery. ANESTHESIA: General. SPECIMENS: Aerobic, anaerobic, Gram stain, deep complex laceration/hematoma, left lateral leg. DRAINS: Hemovac x2 lateral lower leg hematoma. COMPLICATIONS: None. BLOOD LOSS: 35 mL. PERTINENT HISTORY: This is a 54-year-old gentleman with severe diabetic neuropathy of bilateral lower extremities, well known to the orthopedic service. The patient had a prior debridement of his left foot; however, failed IV antibiotic treatment and wound care therapy and presented back to the hospital after he had also sustained an acute laceration to the left lower leg on his rolling knee scooter. He had failed antibiotic treatment alone. He was then admitted to the hospitalist service for further care and management for IV antibiotics and then surgical debridement of his multiple diabetic ulcers and his laceration. After surgical optimization, the patient was then scheduled for surgery as indicated. All potential risks, benefits, complications, alternatives, rehab potential for incomplete relief of symptoms, need for further surgery, DVT, PE, , persistent pain, swelling, scarring, weakness, neurovascular injury, wound complications, need for further surgery or amputation were discussed with the patient. The patient decided to proceed with the procedure as indicated. DESCRIPTION OF PROCEDURE: The patient was taken to the operative suite, placed supine on the operating table. After review of consent and identification of proper operative site, the patient was anesthetized, LMA was placed. The left lower extremity was then sterilely prepped and draped in usual fashion. After surgical timeout was performed, a 15 blade scalpel was then used to debride the devitalized tissue around the puncture and complex laceration of the left lateral lower leg measuring 8 cm x 6.2 cm x 5.5 cm x 2.8 cm. There was noted to be an infected hematoma. Culture was obtained of the deep hematoma and evacuation of a significant amount of coagulated blood and hematoma was evacuated from the left lower leg. This was then curetted with a large curette, and 15 blade scalpel and forceps were used to debride any necrotic-appearing tissue including skin, subcutaneous tissue, fat and fascia. Next, the left lateral foot diabetic neuropathic ulcer measuring 5.5 x 4 x 3.9 x 2.0 cm ulceration was then sharply debrided with a 15 blade scalpel including debridement of skin, subcutaneous tissue, fascia, periosteum, local muscular tissue sharply. Next, there was noted to be devitalized, infected, necrotic-appearing peroneus brevis tendon, which was noted to be irreparable and had the appearance of a mop end. This was then sharply excised as this was necrotic tissue and would not survive. This was excised from the base of fifth metatarsal. There was noted to be softened base of fifth metatarsal and adjacent softened cuboid, soft to the point of pressing forceps through the wall of the base of fifth metatarsal and cuboid without significant force required. Next, the ulceration was tested for tracking. It was noted to track all the way to the calcaneus. Forcep was also allowed to press fairly easily into the distal one-third of the lateral calcaneus in the bone consistent with osteomyelitis. Therefore, debridement of the base of the fifth metatarsal was performed with a rongeur including debridement of the lateral aspect of the cuboid was performed with a rongeur and debridement of the calcaneus distal one-third lateral aspect was performed with a rongeur until a stable bone was encountered. Next, the site was then carefully irrigated with pulsatile lavage using sterile saline and bacitracin including the complex laceration with infected hematoma of the lateral lower leg and the lateral foot. Next, the eschar and devitalized tissue at the posterolateral heel diabetic ulcer measuring 6.5 x 4.5 x 0.6 cm was then sharply unroofed with a 15 blade scalpel including skin, subcutaneous fat and tissue down to the level of the fascia and periosteum posterior to calcaneus. There did not appear to be violation of the periosteum and the surrounding soft tissues deep appeared to be viable. Next, pulsatile lavage was then used to lavage the lateral heel along with the base of fifth metatarsal and the hematoma, 6 liters in total including bacitracin. Once this was completed, Stimulan antibiotic beads 10 mL with additional 2 grams of vancomycin and 1 gram of gentamicin was created and the beads were then packed into the lateral lower leg hematoma site into the diabetic neuropathic ulcer at the base of the fifth metatarsal region and also the diabetic neuropathic ulcer in the posterolateral calcaneus. The sites of the hindfoot and lateral foot were covered with Acticoat Flex and held in place with multiple skin robbie and the site on the left lower leg was then loosely closed using interrupted 2-0 nylon sutures over twin 10-Indonesian Hemovac drains. Next, a sterile compressive dressing was applied consisting of Adaptic, sterile 4 x 4's, ABD pads, sterile cast padding and Hilario wrap was applied. The patient was then awakened and taken to recovery in stable condition. I attest to the content of the Intraoperative Record and any orders documented therein. Any exceptions are noted below. MTDD
[2020-08-03] MEDS ORDERED: FUROSEMIDE 40 MG in SYRINGE 0 ML IV ONE (15:00)
--- NOTE | 2020-08-03 16:09 | Hospitalist Progress Note ---
Date of Service August 03, 2020 Assessment & Plan (1) Traumatic open wound of left lower leg: On surgical exploration today this turned out to be a hematoma. There is a Hemovac in place. Continue to hold heparin at this time. (2) Diabetic ulcer of right foot: Status post surgical debridement today with antibiotic beads per Dr. Bates. Postop care per Ortho. (3) Cellulitis of left lower leg: Continue Zosyn and daptomycin at this time. Wound culture pending. (4) Sustained ventricular tachycardia: h/o this with ICD placement in October 2019, recently required reloading with amiodarone in last couple of weeks. Maintains sinus rhythm on PO amiodarone. (5) CAD (coronary artery disease): -Continue torsemide 60 mg twice daily, ASA 81 mg daily, atorvastatin 80 mg qPM. Missed morning dose of torsemide, gave one dose of IV Lasix 40 mg. (6) Atrial fibrillation: -Rate control with amiodarone, holding heparin drip in setting of hematoma. Discuss with Ortho when it is okay to restart Coumadin therapy. (7) CKD (chronic kidney disease) stage 3, GFR 30-59 ml/min: creatinine around his baseline. (8) Diabetes type 2, uncontrolled: -Last A1c 7.6, uncontrolled -Following with Dr. Euceda as an outpatient -Cont home CGM and insulin pump, glycemic pharmacist consulted during admission, continue ISS [facility] glucose monitoring (9) Diabetic peripheral neuropathy associated with type 2 diabetes mellitus: cont multi-pronged treatment approach including glucose control and gabapentin (10) Morbid obesity: -We will encourage lifestyle modifications including diet and exercise during admission (11) Hypothyroidism: -Continue levothyroxine 100 mcg daily (12) Ischemic cardiomyopathy: -appears compensated, however, body habitus makes that difficult to tell. Continue torsemide 60 mg twice daily, ASA 81 mg daily, atorvastatin 80 mg qPM (on temporary hold in setting of daptomycin) -Volume status appears euvolemic currently (13) DVT prophylaxis: SCDs, heparin drip held Full Code Dispo-uncertain at this time. [facility] [facility] Admission and Anticipated Discharge Date Admission Date: August 01, 2020 Subjective 54 yo obese, diabetic man with recent hospitalization for diabetic foot infection with pseudomonas in addition to covid pneumonia, now admitted for new LLE wound with worsening cellulitis not responsive to outpatient doxycycline. Patient with I&D and surgical debridement this morning by Dr. Bates Reports his pain is present but managed He is upset about having a low-salt diet and request that this be changed He otherwise has no issues at this time. Review of Systems Review of Systems: All systems reviewed & are unremarkable except as noted in Subjective Physical Exam Physical Exam: CONSTITUTIONAL: obese, vitals as above, generally appears irritated EYES: normal conjunctivae, no scleral icterus ENT: external ear and nose normal, MMM RESPIRATORY: clear to auscultation bilaterally, no crackles, rales or wheezes, normal respiratory effort CARDIOVASCULAR: regular rate and rhythm, S1 and 2 heard without murmurs, gallops or rubs, no JVD, no peripheral edema CHEST: +ICD GASTROINTESTINAL: soft, protuberant, nondistended. MUSCULOSKELETAL: strength 5/5 throughout, head is normocephalic and atraumatic SKIN: warm and dry, +LLE anterior wound with Hemovac in place, left lower extremity erythema is improved. Other known foot wounds are wrapped and as described in wound care notes. Dressings for these are c/d/i. NEUROLOGIC: CN 2-12 grossly intact, normal cognition, normal speech, decreased sensation of feet bilaterally. PSYCHIATRIC: alert cooperative and oriented to person, place and time. Results & Data Results & Data ([facility]) Vital Signs (Past 12 Hours) Vital Signs Temp Pulse Pulse Pulse Resp BP Pulse Ox 08/03/20 15:00 36.7 C 108 H 18 123/70 98 08/03/20 14:00 36.4 C L 96 H 20 106/69 99 08/03/20 13:32 106 H 16 97/65 L 99 08/03/20 13:03 36.4 C L 104 H 18 96/66 L 96 08/03/20 12:40 36.2 C L 114 H 20 112/88 98 08/03/20 12:30 110 H 18 131/81 93 08/03/20 12:15 114 H 20 142/79 H 97 08/03/20 12:05 36.4 C L 124 H 18 138/87 100 08/03/20 09:30 36.4 C L 108 H 22 91 08/03/20 08:03 36.6 C 87 126/76 Laboratory Results Short CBC 08/03/20 Range/Units 05:32 WBC 9.62 (4.8-10.8) K/uL Hgb 12.3 L (14.0-18.0) g/dL Hct 38.9 L (42-52) % Plt Count 300 (130-400) K/uL BMP 08/03/20 05:32 Sodium 135 L Potassium 3.4 L Chloride 101 Carbon Dioxide 28 BUN 21 H Creatinine 1.42 H Glucose 91 Calcium 9.2 Cardiac Enzymes 08/02/20 Range/Units 19:44 Total Creatine Kinase 39 (39-308) U/L Liver Function 08/03/20 Range/Units 05:32 Total Bilirubin 1.0 (0.2-1) mg/dl AST 20 (15-37) U/L ALT 18 (12-78) U/L Alkaline Phosphatase 146 H (45-117) U/L Albumin 2.3 L (3.4-5.0) gm/dl Medications Administered Current Inpatient Medications Acetaminophen (Acetaminophen 325 Mg Tab) 650 mg PO Q4H PRN PRN Reason: Moderate Pain Stop: 08/31/20 17:27 Hydrocodone Bitart/Acetaminophen (Hydrocodone/Acetaminophen 10/325 Tab) 1 tab PO Q8H PRN PRN Reason: Pain Stop: 08/15/20 18:08 Last Admin: 08/02/20 20:31 Dose: 1 tab Documented by: Albuterol (Albuterol Hfa 8 Gm Inhaler) 2 puffs INH QID PRN PRN Reason: SHORT OF BREATH Stop: 08/31/20 17:27 Amiodarone HCl (Amiodarone 200 Mg Tab) 200 mg PO BID MATT Stop: 08/31/20 20:59 Last Admin: 08/03/20 08:25 Dose: Not Given Documented by: Aspirin (Aspirin 81 Mg Ectab) 81 mg PO DAILY MATT Stop: 09/01/20 08:59 Last Admin: 08/03/20 08:26 Dose: Not Given Documented by: Atorvastatin Calcium (Atorvastatin 40 Mg Tab) 80 mg PO PM MATT Stop: 08/31/20 20:59 Last Admin: 08/01/20 20:54 Dose: 80 mg Documented by: Bisacodyl (Bisacodyl 10 Mg Supp) 10 mg SC DAILY PRN PRN Reason: Constipation Stop: 09/02/20 12:05 Clobetasol Propionate (Clobetasol Propionate 0.05% Oint 15 Gm Tube) 1 appln EXT BID [facility] Stop: 08/31/20 20:59 Last Admin: 08/03/20 08:25 Dose: Not Given Documented by: Dextrose (Dextrose 50% 50 Ml Syringe) 25 - 50 ml IV UD PRN; Protocol PRN Reason: Hypoglycemia Protocol Stop: 08/31/20 17:29 Diphenhydramine HCl (Diphenhydramine Capsule 25 Mg Cap) 25 mg PO Q8H PRN PRN Reason: Itching Stop: 09/02/20 12:05 Docusate Sodium (Docusate Sodium 100 Mg Cap) 100 mg PO BID [facility] Stop: 09/02/20 20:59 Ergocalciferol (Ergocalciferol 50,000 Units 1250 Mcg Cap) 50,000 units PO Tu@0900 [facility] Stop: 09/06/20 08:59 Fluticasone Propionate (Fluticasone Propionate Na Spr 16 Gm Btl) 2 sprays NA BID [facility] Stop: 08/31/20 20:59 Last Admin: 08/03/20 08:26 Dose: Not Given Documented by: Fluticasone/Vilanterol (Fluticasone/Vilanterol 200/25mcg 14 Puffs/Inhaler) 1 puffs INH QPM [facility] Stop: 08/31/20 20:59 Last Admin: 08/02/20 20:34 Dose: 1 puffs Documented by: Gabapentin (Gabapentin 300 Mg Cap) 300 mg PO TID [facility] Stop: 08/31/20 20:59 Last Admin: 08/03/20 13:23 Dose: 300 mg Documented by: Glucagon (Glucagon For Inj 1 Mg Vial) 1 mg SQ UD PRN; Protocol PRN Reason: Hypoglycemia Protocol Stop: 08/31/20 17:29 Glucose (Glucose 40% Gel 15 Gm Tube) 15 - 30 gm PO UD PRN; Protocol PRN Reason: Hypoglycemia Protocol Stop: 08/31/20 17:29 Glucose (Glucose 10 Tabs/Tube) 4 - 8 tabs PO UD PRN; Protocol PRN Reason: Hypoglycemia Protocol Stop: 08/31/20 17:29 Guaifenesin (Guaifenesin 600 Mg Tabcr) 600 mg PO Q12 [facility] Stop: 08/31/20 20:59 Last Admin: 08/03/20 08:26 Dose: Not Given Documented by: Hyoscyamine (Hyoscyamine Sulfate 0.125 Mg Tab) 0.125 mg PO TID [facility] Stop: 08/31/20 20:59 Last Admin: 08/03/20 13:23 Dose: 0.125 mg Documented by: Piperacillin Sod/Tazobactam (Sod 4.5 gm/ Dextrose) 120 mls @ 30 mls/hr IV Q8H [facility]; Protocol Stop: 08/08/20 19:59 Last Admin: 08/03/20 13:19 Dose: 30 mls/hr Documented by: Daptomycin 700 mg/ Syringe 14 mls @ 7 mls/min IV Q24H [facility]; Protocol Stop: 08/08/20 13:59 Last Admin: 08/03/20 13:18 Dose: 7 mls/min Documented by: Heparin Sodium/Dextrose (Heparin Sodium/Dextrose) 25,000 units in 500 mls @ 0 mls/hr IV .Q0M [facility]; Protocol Stop: 08/31/20 17:44 Last Titration: 08/03/20 02:05 Dose: 0 units/hr, 0 mls/hr Documented by: Insulin Aspart (Novolog Insulin Pump) 1 ea N/A ACHS [facility]; Protocol Stop: 08/31/20 20:59 Last Admin: 08/03/20 13:01 Dose: Not Given Documented by: Insulin Aspart (Insulin Aspart 100 Units/Ml Vial) 0 units SC PRN PRN PRN Reason: PUMP REFILL Stop: 08/31/20 17:29 Lactic Acid (Ammonium Lactate 12% Lotion 225 Gm Btl) 1 gm EXT DAILY PRN PRN Reason: dry skin Stop: 08/31/20 17:27 Levothyroxine Sodium (Levothyroxine Sodium 100 Mcg Tablet) 100 mcg PO DAILYBB [facility] Stop: 09/01/20 06:29 Last Admin: 08/03/20 06:10 Dose: Not Given Documented by: Magnesium Hydroxide (Magnesium Hydroxide Susp 30 Ml Udc) 30 ml PO Q6H PRN PRN Reason: Constipation Stop: 09/02/20 12:05 Magnesium Oxide (Magnesium Oxide 400 Mg Tab) 400 mg PO QAM [facility] Stop: 09/01/20 08:59 Last Admin: 08/03/20 08:26 Dose: Not Given Documented by: Menthol (Cough Drop (Sugar Free) Phong 24 Phong/1 Box) 1 phong BUCCAL PRN PRN PRN Reason: Cough Stop: 08/31/20 19:46 Last Admin: 08/01/20 20:33 Dose: 1 phong Documented by: Metoclopramide HCl (Metoclopramide Hcl Inj 5 Mg/Ml 2 Ml Vial) 10 mg IV Q6H PRN PRN Reason: Nausea And Vomiting Stop: 09/02/20 12:05 Miscellaneous (Carbohydrates For Hypoglycemia ) 15 - 30 gm PO UD PRN PRN Reason: Hypoglycemia Treatment Stop: 08/31/20 17:29 Miscellaneous Information (Daptomycin Consult Active) 1 ea N/A UD PRN PRN Reason: Consult Stop: 08/31/20 13:14 Miscellaneous Information (Piperacill/Tazobac Consult Active) 1 ea N/A UD PRN PRN Reason: Consult Stop: 08/31/20 13:14 Miscellaneous Information (Pharmacy Glycemic Mgmt Consult) 1 ea N/A UD PRN PRN Reason: Consult Stop: 08/31/20 17:02 Multivitamins (Multivitamin Tab) 1 tab PO [facility] Stop: 09/03/20 08:59 Naloxone HCl (Naloxone Hcl 0.4 Mg/1 Ml Vial/Carp) 0.1 mg IV Q5M PRN PRN Reason: Oversedation/Resp Depression Stop: 09/02/20 12:05 Ondansetron HCl (Ondansetron Inj 2 Mg/Ml 2 Ml Vial) 4 mg IV Q4H PRN PRN Reason: Nausea And Vomiting Stop: 08/31/20 17:27 Ondansetron HCl (Ondansetron Inj 2 Mg/Ml 2 Ml Vial) 4 mg IV Q6H PRN PRN Reason: Nausea And Vomiting Stop: 09/02/20 12:05 Pantoprazole Sodium (Pantoprazole 40 Mg Tab) 40 mg PO [facility] Stop: 09/01/20 08:59 Last Admin: 08/03/20 08:26 Dose: Not Given Documented by: Potassium Chloride (Potassium Chloride Crtab 20 Meq Tabcr) 20 meq [facility] [place] [place] Stop: 09/01/20 08:59 Last Admin: 08/03/20 08:26 Dose: Not Given Documented by: Sennosides (Senna 8.6 Mg Tab) 17.2 mg PO HS [facility] Stop: 09/02/20 20:59 Torsemide (Torsemide 20 Mg Tab) 60 mg PO [id number] [facility] Stop: 08/31/20 17:59 Last Admin: 08/03/20 15:29 Dose: 60 mg Documented by: Tramadol HCl (Tramadol Hcl 50 Mg Tablet) 50 mg PO Q6H PRN PRN Reason: pain Stop: 08/31/20 17:27 Last Admin: 08/03/20 13:10 Dose: 50 mg Documented by:
[2020-08-03] MEDS: HYDROcodone/ACETAMINOPHEN 10/325 TAB PO PRN (16:31)
[2020-08-03] MEDS ORDERED: ARTIFICIAL TEARS OPB PRN (17:13)
[2020-08-03] MEDS: HEPARIN SODIUM/DEXTROSE 25,000 UNITS/500 ML BAG IV SCH (18:00)
[2020-08-03] MEDS: FLUTICASONE/VILANTEROL 200/25MCG 14 PUFFS/INHALER INH SCH (20:33)
[2020-08-03] MEDS: SENNA 8.6 MG TAB PO SCH (20:36)
[2020-08-03] MEDS: DOCUSATE SODIUM 100 MG CAP PO SCH (20:36)
[2020-08-04] MEDS: traMADol HCL 50 MG TABLET PO PRN (00:31)
[2020-08-04] MEDS: HYDROcodone/ACETAMINOPHEN 10/325 TAB PO PRN ×3 (01:36→23:08)
[2020-08-04] MEDS: PIPERACILLIN/TAZOBACTAM 4.5 GM in DEXTROSE 5% 100 ML IV SCH ×3 (03:15→20:20)
[2020-08-04 05:47] LABS: Hematocrit (blood only) 35.8 % (42-52); Hemoglobin 11.2 g/dL (14.0-18.0); Mean Corpuscular Hemoglobin 27.5 pg (25-34); Mean Corpuscular Hgb Conc 31.3 g/dL (32-36); Mean Platelet Volume 9.1 fL (7.4-10.4); Platelet Count 260 K/uL (130-400); RDW Standard Deviation 60.1 fL (36.4-46.3); Red Blood Count 4.07 M/uL (4.7-6.1); White Blood Count 8.15 K/uL (4.8-10.8)
[2020-08-04 05:56] LABS: INR 1.4 (0.9-1.1); Partial Thromboplastin Ratio 1.1; Partial Thromboplastin Time 28.3 Seconds (21.0-31.0); Prothrombin Time 13.5 Seconds (9.0-12.0)
[2020-08-04 06:24] LABS: Albumin Globulin Ratio 0.3 (0.9-2); BUN Creatinine Ratio 15.8 (10-20); Bilirubin,Total 1.2 mg/dl (0.2-1); Calcium 8.3 mg/dl (8.5-10.1); Creatinine Clr Calc Pharmacy 80.2 ml/min; Est GFR (African American) 53.4; Est GFR (Non-African American) 46.1; Potassium 3.8 mmol/L (3.5-5.1)
[2020-08-04] MEDS: LEVOTHYROXINE SODIUM 100 MCG TABLET PO SCH (06:29)
[2020-08-04 06:38] LABS: Beta-Hydroxybutyrate 1.84 mg/dl (0.2-2.81)
[2020-08-04] MEDS: NovoLOG INSULIN PUMP SCH ×3 (08:46→21:30)
[2020-08-04] MEDS: HYOSCYAMINE SULFATE 0.125 MG TAB PO SCH ×3 (08:48→20:22)
[2020-08-04] MEDS: DOCUSATE SODIUM 100 MG CAP PO SCH ×2 (08:48→20:22)
[2020-08-04] MEDS: ASPIRIN 81 MG ECTAB PO SCH (08:48)
[2020-08-04] MEDS: guaiFENesin 600 MG TABCR PO SCH ×2 (08:49→20:21)
[2020-08-04] MEDS: AMIODARONE 200 MG TAB PO SCH ×2 (08:49→20:23)
[2020-08-04] MEDS: MULTIVITAMIN TAB PO SCH (08:49)
[2020-08-04] MEDS: GABAPENTIN 300 MG CAP PO SCH ×3 (08:49→20:22)
[2020-08-04] MEDS: POTASSIUM CHLORIDE CRTAB 20 MEQ TABCR PO SCH (08:50)
[2020-08-04] MEDS: TORSEMIDE 20 MG TAB PO SCH ×2 (08:50→16:00)
[2020-08-04] MEDS: MAGNESIUM OXIDE 400 MG TAB PO SCH (08:50)
[2020-08-04] MEDS: PANTOprazole 40 MG TAB PO SCH (08:50)
[2020-08-04] MEDS: FLUTICASONE PROPIONATE NA SPR 16 GM BTL SCH ×2 (08:51→20:21)
[2020-08-04] MEDS: CLOBETASOL PROPIONATE 0.05% OINT 15 GM TUBE EXT SCH ×2 (08:54→20:21)
--- NOTE | 2020-08-04 10:23 | Orthopedic Progress Note ---
Date of Service August 04, 2020 Assessment & Plan (1) Diabetic ulcer of right foot: Left lateral foot ulcer irrigation and debridement measuring 5.5 cm x 4 cm x 3.9 cm x 2 cm deep. 2. Left heel diabetic ulceration irrigation and debridement measuring 6.5 cm x 4.5 cm x 0.6 cm deep. 3. Irrigation and debridement of lateral tibial large complex laceration measuring 8 cm x 6.2 cm x 5.5 cm x 2.8 cm deep. 4. Irrigation and debridement of multiple sites including skin, subcutaneous tissue, fascia, muscle and periosteum. 5. Exostectomy of fifth metatarsal base. 6. Exostectomy of cuboid. 7. Exostectomy of the calcaneus. 8. Evacuation of infected hematoma, left lower leg. 9. Resection of exposed, devitalized, infected peroneus brevis tendon, left. 10. Application of Stimulan antibiotic beads 10 cc with 2 grams of vancomycin and 1 gram of gentamicin. Continue to monitor cultures. Dressing change tomorrow. Heparin on hold Admission and Anticipated Discharge Date Admission Date: August 01, 2020 Subjective Patient sitting in chair, minimal pain today. He thinks it feels better overall. Physical Exam Physical Exam: Dressing in place to foot/ankle and calf. Hemovac drain. No saturation. Toes mobile Results & Data ([facility]) Vital Signs (Past 12 Hours) Vital Signs Temp Pulse Resp BP Pulse Ox 08/04/20 07:13 36.8 C 87 126/82 08/04/20 03:09 37.3 C 93 H 18 115/74 95
[2020-08-04] MEDS: DAPTOmycin 700 MG in SYRINGE 0 ML IV SCH (13:18)
[2020-08-04] MEDS: ARTIFICIAL TEARS OPL SCH ×3 (13:25→20:27)
--- NOTE | 2020-08-04 18:53 | Hospitalist Progress Note ---
Date of Service August 04, 2020 Assessment & Plan (1) Traumatic open wound of left lower leg: On surgical exploration today this turned out to be a hematoma. There is a Hemovac in place. Continue to hold heparin at this time pending ortho approval to restart blood thinners. (2) Diabetic ulcer of right foot: Status post surgical debridement today with antibiotic beads per Dr. Bates. Postop care per Ortho. Continues on systemic antibiotics until Ortho can weigh in on this or ID. Current cultures are negative to date. (3) Cellulitis of left lower leg: Continue Zosyn and daptomycin at this time. Wound culture pending. (4) Sustained ventricular tachycardia: h/o this with ICD placement in October 2019, recently required reloading with amiodarone in last couple of weeks. (5) CAD (coronary artery disease): -Continue torsemide 60 mg twice daily, ASA 81 mg daily, atorvastatin 80 mg qPM per home regimen. (6) Atrial fibrillation: -Rate/rhythm control with amiodarone, holding heparin drip in setting of hematoma. Discuss with Ortho when it is okay to restart Coumadin therapy. (7) CKD (chronic kidney disease) stage 3, GFR 30-59 ml/min: creatinine around his baseline. (8) Diabetes type 2, uncontrolled: -Last A1c 7.6, uncontrolled -Following with Dr. Euceda as an outpatient -Cont home CGM and insulin pump, glycemic pharmacist consulted during admission, continue ISS with [facility] glucose monitoring (9) Diabetic peripheral neuropathy associated with type 2 diabetes mellitus: cont multi-pronged treatment approach including glucose control and gabapentin (10) Morbid obesity: -We will encourage lifestyle modifications including diet and exercise during admission (11) Hypothyroidism: -Continue levothyroxine 100 mcg daily (12) Ischemic cardiomyopathy: -appears compensated, however, body habitus makes that difficult to tell. Continue torsemide 60 mg twice daily, ASA 81 mg daily, atorvastatin 80 mg qPM (on temporary hold in setting of daptomycin) -Volume status appears euvolemic currently (13) DVT prophylaxis: SCDs, heparin drip held Full Code Dispo-uncertain at this time. Katharina Flores DO [facility] Hospitalist Admission and Anticipated Discharge Date Admission Date: August 01, 2020 Subjective 54 yo obese, diabetic man with recent hospitalization for diabetic foot infection with pseudomonas in addition to covid pneumonia, now admitted for new LLE wound with worsening cellulitis not responsive to outpatient doxycycline. Patient with I&D and surgical debridement by Dr. Bates, POD 1 Reports his pain is present but managed with oxycodone Hemovac drainage appears to be lightening up Tolerating PO, afebrile Review of Systems Review of Systems: All systems reviewed & are unremarkable except as noted in Subjective Physical Exam Physical Exam: CONSTITUTIONAL: obese, vitals as above, generally NAD EYES: normal conjunctivae, no scleral icterus ENT: external ear and nose normal, MMM RESPIRATORY: clear to auscultation bilaterally, no crackles, rales or wheezes, normal respiratory effort CARDIOVASCULAR: regular rate and rhythm, S1 and 2 heard without murmurs, gallops or rubs, no JVD, no peripheral edema CHEST: +ICD GASTROINTESTINAL: soft, protuberant, nondistended. MUSCULOSKELETAL: strength 5/5 throughout, head is normocephalic and atraumatic SKIN: warm and dry, +LLE anterior wound with Hemovac in place, left lower extremity erythema is improved. Other known foot wounds are wrapped and as described in wound care notes. Dressings for these are c/d/i. NEUROLOGIC: CN 2-12 grossly intact, normal cognition, normal speech, decreased sensation of feet bilaterally. PSYCHIATRIC: alert cooperative and oriented to person, place and time. Results & Data Results & Data ([facility]) Vital Signs (Past 12 Hours) Vital Signs Temp Pulse Resp BP Pulse Ox 08/04/20 15:07 36.9 C 87 16 110/74 91 08/04/20 07:13 36.8 C 87 126/82 Laboratory Results Short CBC 08/04/20 Range/Units 05:19 WBC 8.15 (4.8-10.8) K/uL Hgb 11.2 L (14.0-18.0) g/dL Hct 35.8 L (42-52) % Plt Count 260 (130-400) K/uL BMP 08/04/20 05:19 Sodium 134 L Potassium 3.8 Chloride 99 Carbon Dioxide 29 BUN 26 H Creatinine 1.64 H Glucose 363 H* Calcium 8.3 L Liver Function 08/04/20 Range/Units 05:19 Total Bilirubin 1.2 H (0.2-1) mg/dl AST 16 (15-37) U/L ALT 17 (12-78) U/L Alkaline Phosphatase 125 H (45-117) U/L Albumin 2.0 L (3.4-5.0) gm/dl Medications Administered Current Inpatient Medications Acetaminophen (Acetaminophen 325 Mg Tab) 650 mg PO Q4H PRN PRN Reason: Moderate Pain Stop: 08/31/20 17:27 Hydrocodone Bitart/Acetaminophen (Hydrocodone/Acetaminophen 10/325 Tab) 1 tab PO Q8H PRN PRN Reason: Pain Stop: 08/15/20 18:08 Last Admin: 08/04/20 13:18 Dose: 1 tab Documented by: Albuterol (Albuterol Hfa 8 Gm Inhaler) 2 puffs INH QID PRN PRN Reason: SHORT OF BREATH Stop: 08/31/20 17:27 Amiodarone HCl (Amiodarone 200 Mg Tab) 200 mg PO BID [facility] Stop: 08/31/20 20:59 Last Admin: 08/04/20 08:49 Dose: 200 mg Documented by: Artificial Tears (Artificial Tears) 2 drops OPL QID [facility] Stop: 09/03/20 13:14 Last Admin: 08/04/20 16:00 Dose: 2 drops Documented by: Aspirin (Aspirin 81 Mg Ectab) 81 mg PO DAILY [facility] Stop: 09/01/20 08:59 Last Admin: 08/04/20 08:48 Dose: 81 mg Documented by: Atorvastatin Calcium (Atorvastatin 40 Mg Tab) 80 mg PO PM [facility] Stop: 08/31/20 20:59 Last Admin: 08/01/20 20:54 Dose: 80 mg Documented by: Bisacodyl (Bisacodyl 10 Mg Supp) 10 mg [place] DAILY PRN PRN Reason: Constipation Stop: 09/02/20 12:05 Clobetasol Propionate (Clobetasol Propionate 0.05% Oint 15 Gm Tube) 1 appln EXT BID [facility] Stop: 08/31/20 20:59 Last Admin: 08/04/20 08:54 Dose: 1 appln Documented by: Dextrose (Dextrose 50% 50 Ml Syringe) 25 - 50 ml IV UD PRN; Protocol PRN Reason: Hypoglycemia Protocol Stop: 08/31/20 17:29 Diphenhydramine HCl (Diphenhydramine Capsule 25 Mg Cap) 25 mg PO Q8H PRN PRN Reason: Itching Stop: 09/02/20 12:05 Docusate Sodium (Docusate Sodium 100 Mg Cap) 100 mg PO BID [facility] Stop: 09/02/20 20:59 Last Admin: 08/04/20 08:48 Dose: 100 mg Documented by: Ergocalciferol (Ergocalciferol 50,000 Units 1250 Mcg Cap) 50,000 units PO Tu@0900 [facility] Stop: 09/06/20 08:59 Fluticasone Propionate (Fluticasone Propionate Na Spr 16 Gm Btl) 2 sprays NA BID [facility] Stop: 08/31/20 20:59 Last Admin: 08/04/20 08:51 Dose: 2 sprays Documented by: Fluticasone/Vilanterol (Fluticasone/Vilanterol 200/25mcg 14 Puffs/Inhaler) 1 puffs INH QPM [facility] Stop: 08/31/20 20:59 Last Admin: 08/03/20 20:33 Dose: 1 puffs Documented by: Gabapentin (Gabapentin 300 Mg Cap) 300 mg PO TID [facility] Stop: 08/31/20 20:59 Last Admin: 08/04/20 13:25 Dose: 300 mg Documented by: Glucagon (Glucagon For Inj 1 Mg Vial) 1 mg SQ UD PRN; Protocol PRN Reason: Hypoglycemia Protocol Stop: 08/31/20 17:29 Glucose (Glucose 40% Gel 15 Gm Tube) 15 - 30 gm PO UD PRN; Protocol PRN Reason: Hypoglycemia Protocol Stop: 08/31/20 17:29 Glucose (Glucose 10 Tabs/Tube) 4 - 8 tabs PO UD PRN; Protocol PRN Reason: Hypoglycemia Protocol Stop: 08/31/20 17:29 Guaifenesin (Guaifenesin 600 Mg Tabcr) 600 mg PO Q12 [facility] Stop: 08/31/20 20:59 Last Admin: 08/04/20 08:49 Dose: 600 mg Documented by: Hyoscyamine (Hyoscyamine Sulfate 0.125 Mg Tab) 0.125 mg PO TID [facility] Stop: 08/31/20 20:59 Last Admin: 08/04/20 13:24 Dose: 0.125 mg Documented by: Piperacillin Sod/Tazobactam (Sod 4.5 gm/ Dextrose) 120 mls @ 30 mls/hr IV Q8H [facility]; Protocol Stop: 08/08/20 19:59 Last Infusion: 08/04/20 15:57 Dose: Infused Documented by: Daptomycin 700 mg/ Syringe 14 mls @ 7 mls/min IV Q24H [facility]; Protocol Stop: 08/08/20 13:59 Last Admin: 08/04/20 13:18 Dose: 7 mls/min Documented by: Insulin Aspart (Novolog Insulin Pump) 1 ea N/A ACHS [facility]; Protocol Stop: 08/31/20 20:59 Last Admin: 08/04/20 13:23 Dose: Not Given Documented by: Insulin Aspart (Insulin Aspart 100 Units/Ml Vial) 0 units SC PRN PRN PRN Reason: PUMP REFILL Stop: 08/31/20 17:29 Lactic Acid (Ammonium Lactate 12% Lotion 225 Gm Btl) 1 gm EXT DAILY PRN PRN Reason: dry skin Stop: 08/31/20 17:27 Levothyroxine Sodium (Levothyroxine Sodium 100 Mcg Tablet) 100 mcg PO DAILYBB [facility] Stop: 09/01/20 06:29 Last Admin: 08/04/20 06:29 Dose: 100 mcg Documented by: Magnesium Hydroxide (Magnesium Hydroxide Susp 30 Ml Udc) 30 ml PO Q6H PRN PRN Reason: Constipation Stop: 09/02/20 12:05 Magnesium Oxide (Magnesium Oxide 400 Mg Tab) [facility] Stop: 09/01/20 08:59 Last Admin: 08/04/20 08:50 Dose: 400 mg Documented by: Menthol (Cough Drop (Sugar Free) Raphael 24 Raphael/1 Box) 1 raphael BUCCAL PRN PRN PRN Reason: Cough Stop: 08/31/20 19:46 Last Admin: 08/01/20 20:33 Dose: 1 raphael Documented by: Metoclopramide HCl (Metoclopramide Hcl Inj 5 Mg/Ml 2 Ml Vial) 10 mg IV Q6H PRN PRN Reason: Nausea And Vomiting Stop: 09/02/20 12:05 Miscellaneous (Carbohydrates For Hypoglycemia ) 15 - 30 gm PO UD PRN PRN Reason: Hypoglycemia Treatment Stop: 08/31/20 17:29 Miscellaneous Information (Daptomycin Consult Active) 1 ea N/A UD PRN PRN Reason: Consult Stop: 08/31/20 13:14 Miscellaneous Information (Piperacill/Tazobac Consult Active) 1 ea N/A UD PRN PRN Reason: Consult Stop: 08/31/20 13:14 Miscellaneous Information (Pharmacy Glycemic Mgmt Consult) 1 ea N/A UD PRN PRN Reason: Consult Stop: 08/31/20 17:02 Multivitamins (Multivitamin Tab) 1 tab PO [facility] Stop: 09/03/20 08:59 Last Admin: 08/04/20 08:49 Dose: 1 tab Documented by: Naloxone HCl (Naloxone Hcl 0.4 Mg/1 Ml Vial/Carp) 0.1 mg IV Q5M PRN PRN Reason: Oversedation/Resp Depression Stop: 09/02/20 12:05 Ondansetron HCl (Ondansetron Inj 2 Mg/Ml 2 Ml Vial) 4 mg IV Q6H PRN PRN Reason: Nausea And Vomiting Stop: 09/02/20 12:05 Pantoprazole Sodium (Pantoprazole 40 Mg Tab) 40 mg PO [facility] Stop: 09/01/20 08:59 Last Admin: 08/04/20 08:50 Dose: 40 mg Documented by: Potassium Chloride (Potassium Chloride Crtab 20 Meq Tabcr) [facility]q [facility] Stop: 09/01/20 08:59 Last Admin: 08/04/20 08:50 Dose: 20 meq Documented by: Sennosides (Senna 8.6 Mg Tab) 17.2 mg PO HS [facility] Stop: 09/02/20 20:59 Last Admin: 08/03/20 20:36 Dose: 17.2 mg Documented by: Torsemide (Torsemide 20 Mg Tab) 60 mg PO [id number] [facility] Stop: 08/31/20 17:59 Last Admin: 08/04/20 16:00 Dose: 60 mg Documented by: Tramadol HCl (Tramadol Hcl 50 Mg Tablet) 50 mg PO Q6H PRN PRN Reason: pain Stop: 08/31/20 17:27 Last Admin: 08/04/20 00:31 Dose: 50 mg Documented by:
[2020-08-04] MEDS: FLUTICASONE/VILANTEROL 200/25MCG 14 PUFFS/INHALER INH SCH (20:21)
[2020-08-04] MEDS: SENNA 8.6 MG TAB PO SCH (20:22)
[2020-08-05] MEDS: PIPERACILLIN/TAZOBACTAM 4.5 GM in DEXTROSE 5% 100 ML IV SCH ×3 (04:32→20:26)
[2020-08-05] MEDS: LEVOTHYROXINE SODIUM 100 MCG TABLET PO SCH (05:33)
[2020-08-05 06:09] LABS: Partial Thromboplastin Time 26.5 Seconds (21.0-31.0)
[2020-08-05 06:12] LABS: Basophils # (auto) 0.03 K/uL (0-0.2); Basophils % (auto) 0.3 %; Eosinophils % (auto) 2.1 %; Hematocrit (blood only) 34.5 % (42-52); Hemoglobin 11.3 g/dL (14.0-18.0); Immature Granulocytes # (auto) 0.03 K/uL (0.00-0.02); Immature Granulocytes % (auto) 0.3 %; Lymphocytes # (auto) 0.93 K/uL (1.2-3.4); Lymphocytes % (auto) 9.7 %; Mean Corpuscular Hemoglobin 28.6 pg (25-34); Mean Corpuscular Hgb Conc 32.8 g/dL (32-36); Mean Corpuscular Volume 87.3 fL (80-100); Mean Platelet Volume 9.1 fL (7.4-10.4); Monocytes # (auto) 0.87 K/uL (0.11-0.59); Monocytes % (auto) 9.1 %; Neutrophils # (auto) 7.48 K/uL (1.4-6.5); Neutrophils % (auto) 78.5 %; Platelet Count 266 K/uL (130-400); RDW Coefficient of Variation 18.9 % (11.5-14.5); RDW Standard Deviation 59.4 fL (36.4-46.3); Red Blood Count 3.95 M/uL (4.7-6.1); White Blood Count 9.54 K/uL (4.8-10.8)
[2020-08-05] MEDS: NovoLOG INSULIN PUMP SCH ×5 (08:13→20:47)
[2020-08-05] MEDS: FLUTICASONE PROPIONATE NA SPR 16 GM BTL SCH ×2 (08:15→20:28)
[2020-08-05] MEDS: AMIODARONE 200 MG TAB PO SCH ×2 (08:16→20:28)
[2020-08-05] MEDS: TORSEMIDE 20 MG TAB PO SCH (08:16)
[2020-08-05] MEDS: POTASSIUM CHLORIDE CRTAB 20 MEQ TABCR PO SCH (08:16)
[2020-08-05] MEDS: PANTOprazole 40 MG TAB PO SCH (08:16)
[2020-08-05] MEDS: MULTIVITAMIN TAB PO SCH (08:16)
[2020-08-05] MEDS: ASPIRIN 81 MG ECTAB PO SCH (08:16)
[2020-08-05] MEDS: MAGNESIUM OXIDE 400 MG TAB PO SCH (08:17)
[2020-08-05] MEDS: GABAPENTIN 300 MG CAP PO SCH ×3 (08:17→20:29)
[2020-08-05] MEDS: DOCUSATE SODIUM 100 MG CAP PO SCH ×2 (08:17→20:28)
[2020-08-05] MEDS: HYOSCYAMINE SULFATE 0.125 MG TAB PO SCH ×3 (08:17→20:29)
[2020-08-05] MEDS: guaiFENesin 600 MG TABCR PO SCH ×2 (08:17→20:29)
[2020-08-05] MEDS: traMADol HCL 50 MG TABLET PO PRN ×2 (08:25→20:32)
[2020-08-05] MEDS: CLOBETASOL PROPIONATE 0.05% OINT 15 GM TUBE EXT SCH ×2 (08:26→20:27)
[2020-08-05] MEDS: ARTIFICIAL TEARS OPL SCH ×4 (08:26→20:27)
--- NOTE | 2020-08-05 09:50 | Orthopedic Progress Note ---
Date of Service August 05, 2020 Assessment & Plan (1) Diabetic ulcer of right foot: Left lateral foot ulcer irrigation and debridement measuring 5.5 cm x 4 cm x 3.9 cm x 2 cm deep. 2. Left heel diabetic ulceration irrigation and debridement measuring 6.5 cm x 4.5 cm x 0.6 cm deep. 3. Irrigation and debridement of lateral tibial large complex laceration measuring 8 cm x 6.2 cm x 5.5 cm x 2.8 cm deep. 4. Irrigation and debridement of multiple sites including skin, subcutaneous tissue, fascia, muscle and periosteum. 5. Exostectomy of fifth metatarsal base. 6. Exostectomy of cuboid. 7. Exostectomy of the calcaneus. 8. Evacuation of infected hematoma, left lower leg. 9. Resection of exposed, devitalized, infected peroneus brevis tendon, left. 10. Application of Stimulan antibiotic beads 10 cc with 2 grams of vancomycin and 1 gram of gentamicin. Continue to monitor cultures. Dressing change today. Drain removed. will address blood thinner with Dr. Bates to resume. Admission and Anticipated Discharge Date Admission Date: August 01, 2020 Subjective resting in recliner chair. No complaints today. Physical Exam Physical Exam: Dressing changed this am. No active drainage. Erythema appears to be improving. Toes mobile Results & Data ([facility]) Vital Signs (Past 12 Hours) Vital Signs Temp Pulse Resp BP Pulse Ox 08/05/20 07:38 37.1 C 93 H 20 133/81 90 08/04/20 22:29 37.0 C 102 H 20 117/74 94
[2020-08-05] MEDS: DAPTOmycin 700 MG in SYRINGE 0 ML IV SCH (13:00)
[2020-08-05] MEDS: HYDROcodone/ACETAMINOPHEN 10/325 TAB PO PRN (16:15)
--- NOTE | 2020-08-05 16:29 | Hospitalist Progress Note ---
Date of Service August 05, 2020 Assessment & Plan (1) Traumatic open wound of left lower leg: On surgical exploration today this turned out to be a hematoma. Hemovac pulled today. Restart coumadin today without bridge. (2) Diabetic ulcer of right foot: Status post surgical redebridement with antibiotic beads per Dr. Bates on 08/03. Postop care per Ortho. Continues on systemic antibiotics until Ortho can weigh in on this or ID. Current cultures are negative to date. (3) Cellulitis of left lower leg: Continue Zosyn and daptomycin at this time. Wound culture negative. (4) Sustained ventricular tachycardia: h/o this with ICD placement in October 2019, recently required reloading with amiodarone in last couple of weeks. Continues on amiodarone which may interact with coumadin. Monitor INR levels closely. (5) CAD (coronary artery disease): -Continue medical therapy including ASA 81 mg daily, atorvastatin 80 mg qPM per home regimen. (6) Atrial fibrillation: -Rate/rhythm control with amiodarone, Coumadin as above. (7) CKD (chronic kidney disease) stage 3, GFR 30-59 ml/min: creatinine around his baseline. (8) Diabetes type 2, uncontrolled: -Last A1c 7.6, uncontrolled -Following with Dr. Euceda as an outpatient -Cont home CGM and insulin pump, glycemic pharmacist consulted during admission, continue ISS with [facility] glucose monitoring (9) Diabetic peripheral neuropathy associated with type 2 diabetes mellitus: cont multi-pronged treatment approach including glucose control and gabapentin (10) Morbid obesity: -We will encourage lifestyle modifications including diet and exercise during admission (11) Hypothyroidism: -Continue levothyroxine 100 mcg daily (12) Ischemic cardiomyopathy: -appears compensated, however, body habitus makes that difficult to tell. With reported persistent cough and current CXR findings, will change oral torsemide to intravenous lasix 40mg TID to get ahead of swelling. Monitor response and see if this improves his cough. Cont ASA 81 mg daily, atorvastatin 80 mg qPM (on temporary hold in setting of daptomycin) (13) DVT prophylaxis: SCDs Full Code Dispo-uncertain at this time. Await improvement in cough, monitor response to IV Lasix. Wait for ID recs for any oil heaterman antibiotic recommendations if needed. Await Ortho discharge clearance, recommendations and activity restrictions. DO eJssica Venegas Hospitalist Admission and Anticipated Discharge Date Admission Date: August 01, 2020 Subjective 54 yo obese, diabetic man with recent hospitalization for diabetic foot infection with pseudomonas in addition to covid pneumonia, now admitted for new LLE wound with worsening cellulitis not responsive to outpatient doxycycline. He is s/p I&D of diabetic foot ulcer with new antibiotic bead placement and s/p hematoma evacuation in anterior LLE with hemovac drain placement. hemovac drain removed and restarted coumadin without bridge systemic antibiotics are continued until ID opinion given long, chronic issue with foot has antibiotic beads in place and suspect these can be stopped. He reports an increased dry cough He reports increased sinus drainage but also noted to have developed some LE edema peripherally since yesterday Daily weights are around his dry weight of 165 kg. Denies SOB or chest pain Review of Systems Review of Systems: All systems reviewed & are unremarkable except as noted in Subjective Physical Exam Physical Exam: CONSTITUTIONAL: obese, vitals as above, generally NAD EYES: normal conjunctivae, no scleral icterus ENT: external ear and nose normal, MMM RESPIRATORY: clear to auscultation bilaterally, no crackles, rales or wheezes, normal respiratory effort CARDIOVASCULAR: regular rate and rhythm, S1 and 2 heard without murmurs, gallops or rubs, no JVD, 2+ peripheral edema CHEST: +ICD GASTROINTESTINAL: soft, protuberant, nondistended. MUSCULOSKELETAL: strength 5/5 throughout, head is normocephalic and atraumatic SKIN: warm and dry, +LLE anterior wound, left lower extremity erythema has resolved with chronic persistent skin darkening at baseline. Dressings for t hese are c/d/i. NEUROLOGIC: CN 2-12 grossly intact, normal cognition, normal speech, decreased sensation of feet bilaterally. PSYCHIATRIC: alert cooperative and oriented to person, place and time. Results & Data Results & Data ([facility]) Vital Signs (Past 12 Hours) Vital Signs Temp Pulse Resp BP Pulse Ox 08/05/20 14:52 37.2 C 101 H 20 156/77 H 91 08/05/20 07:38 37.1 C 93 H 20 133/81 90 Laboratory Results Short CBC 08/05/20 Range/Units 05:18 WBC 9.54 (4.8-10.8) K/uL Hgb 11.3 L (14.0-18.0) g/dL Hct 34.5 L (42-52) % Plt Count 266 (130-400) K/uL Medications Administered Current Inpatient Medications Acetaminophen (Acetaminophen 325 Mg Tab) 650 mg PO Q4H PRN PRN Reason: Moderate Pain Stop: 08/31/20 17:27 Hydrocodone Bitart/Acetaminophen (Hydrocodone/Acetaminophen 10/325 Tab) 1 tab PO Q8H PRN PRN Reason: Pain Stop: 08/15/20 18:08 Last Admin: 08/05/20 16:15 Dose: 1 tab Documented by: Albuterol (Albuterol Hfa 8 Gm Inhaler) 2 puffs INH QID PRN PRN Reason: SHORT OF BREATH Stop: 08/31/20 17:27 Amiodarone HCl (Amiodarone 200 Mg Tab) 200 mg PO BID [facility] Stop: 08/31/20 20:59 Last Admin: 08/05/20 08:16 Dose: 200 mg Documented by: Artificial Tears (Artificial Tears) 2 drops OPL QID MATT Stop: 09/03/20 13:14 Last Admin: 08/05/20 16:15 Dose: 2 drops Documented by: Aspirin (Aspirin 81 Mg Ectab) 81 mg PO DAILY MATT Stop: 09/01/20 08:59 Last Admin: 08/05/20 08:16 Dose: 81 mg Documented by: Atorvastatin Calcium (Atorvastatin 40 Mg Tab) 80 mg PO PM MATT Stop: 08/31/20 20:59 Last Admin: 08/01/20 20:54 Dose: 80 mg Documented by: Bisacodyl (Bisacodyl 10 Mg Supp) 10 mg MI DAILY PRN PRN Reason: Constipation Stop: 09/02/20 12:05 Clobetasol Propionate (Clobetasol Propionate 0.05% Oint 15 Gm Tube) 1 appln EXT BID MATT Stop: 08/31/20 20:59 Last Admin: 08/05/20 08:26 Dose: 1 appln Documented by: Dextrose (Dextrose 50% 50 Ml Syringe) 25 - 50 ml IV UD PRN; Protocol PRN Reason: Hypoglycemia Protocol Stop: 08/31/20 17:29 Diphenhydramine HCl (Diphenhydramine Capsule 25 Mg Cap) 25 mg PO Q8H PRN PRN Reason: Itching Stop: 09/02/20 12:05 Docusate Sodium (Docusate Sodium 100 Mg Cap) 100 mg PO BID [facility] Stop: 09/02/20 20:59 Last Admin: 08/05/20 08:17 Dose: 100 mg Documented by: Ergocalciferol (Ergocalciferol 50,000 Units 1250 Mcg Cap) 50,000 units PO Tu@0900 [facility] Stop: 09/06/20 08:59 Fluticasone Propionate (Fluticasone Propionate Na Spr 16 Gm Btl) 2 sprays NA BID [facility] Stop: 08/31/20 20:59 Last Admin: 08/05/20 08:15 Dose: 2 sprays Documented by: Fluticasone/Vilanterol (Fluticasone/Vilanterol 200/25mcg 14 Puffs/Inhaler) 1 puffs INH QPM MATT Stop: 08/31/20 20:59 Last Admin: 08/04/20 20:21 Dose: 1 puffs Documented by: Gabapentin (Gabapentin 300 Mg Cap) 300 mg PO TID [facility] Stop: 08/31/20 20:59 Last Admin: 08/05/20 12:59 Dose: 300 mg Documented by: Glucagon (Glucagon For Inj 1 Mg Vial) 1 mg SQ UD PRN; Protocol PRN Reason: Hypoglycemia Protocol Stop: 08/31/20 17:29 Glucose (Glucose 40% Gel 15 Gm Tube) 15 - 30 gm PO UD PRN; Protocol PRN Reason: Hypoglycemia Protocol Stop: 08/31/20 17:29 Glucose (Glucose 10 Tabs/Tube) 4 - 8 tabs PO UD PRN; Protocol PRN Reason: Hypoglycemia Protocol Stop: 08/31/20 17:29 Guaifenesin (Guaifenesin 600 Mg Tabcr) 600 mg PO Q12 [facility] Stop: 08/31/20 20:59 Last Admin: 08/05/20 08:17 Dose: 600 mg Documented by: Hyoscyamine (Hyoscyamine Sulfate 0.125 Mg Tab) 0.125 mg PO TID [facility] Stop: 08/31/20 20:59 Last Admin: 08/05/20 12:59 Dose: 0.125 mg Documented by: Piperacillin Sod/Tazobactam (Sod 4.5 gm/ Dextrose) 120 mls @ 30 mls/hr IV Q8H [facility]; Protocol Stop: 08/08/20 19:59 Last Infusion: 08/05/20 16:16 Dose: Infused Documented by: Daptomycin 700 mg/ Syringe 14 mls @ 7 mls/min IV Q24H [facility]; Protocol Stop: 08/08/20 13:59 Last Admin: 08/05/20 13:00 Dose: 7 mls/min Documented by: Furosemide 40 mg/ Syringe 4 mls @ 4 mls/min IV TID [facility] Stop: 09/04/20 16:14 Insulin Aspart (Novolog Insulin Pump) 1 ea N/A ACHS [facility]; Protocol Stop: 08/31/20 20:59 Last Admin: 08/05/20 13:00 Dose: Not Given Documented by: Insulin Aspart (Insulin Aspart 100 Units/Ml Vial) 0 units SC PRN PRN PRN Reason: PUMP REFILL Stop: 08/31/20 17:29 Lactic Acid (Ammonium Lactate 12% Lotion 225 Gm Btl) 1 gm EXT DAILY PRN PRN Reason: dry skin Stop: 08/31/20 17:27 Levothyroxine Sodium (Levothyroxine Sodium 100 Mcg Tablet) 100 mcg PO DAILYBB [facility] Stop: 09/01/20 06:29 Last Admin: 08/05/20 05:33 Dose: 100 mcg Documented by: Magnesium Hydroxide (Magnesium Hydroxide Susp 30 Ml Udc) 30 ml PO Q6H PRN PRN Reason: Constipation Stop: 09/02/20 12:05 Magnesium Oxide (Magnesium Oxide 400 Mg Tab) 400 mg PO QAM [facility] Stop: 09/01/20 08:59 Last Admin: 08/05/20 08:17 Dose: 400 mg Documented by: Menthol (Cough Drop (Sugar Free) Raphael 24 Raphael/1 Box) 1 raphael BUCCAL PRN PRN PRN Reason: Cough Stop: 08/31/20 19:46 Last Admin: 08/01/20 20:33 Dose: 1 raphael Documented by: Metoclopramide HCl (Metoclopramide Hcl Inj 5 Mg/Ml 2 Ml Vial) 10 mg IV Q6H PRN PRN Reason: Nausea And Vomiting Stop: 09/02/20 12:05 Miscellaneous (Carbohydrates For Hypoglycemia ) 15 - 30 gm PO UD PRN PRN Reason: Hypoglycemia Treatment Stop: 08/31/20 17:29 Miscellaneous Information (Daptomycin Consult Active) 1 ea N/A UD PRN PRN Reason: Consult Stop: 08/31/20 13:14 Miscellaneous Information (Piperacill/Tazobac Consult Active) 1 ea N/A UD PRN PRN Reason: Consult Stop: 08/31/20 13:14 Miscellaneous Information (Pharmacy Glycemic Mgmt Consult) 1 ea N/A UD PRN PRN Reason: Consult Stop: 08/31/20 17:02 Multivitamins ([facility]ivitamin Tab) [facility] Stop: 09/03/20 08:59 Last Admin: 08/05/20 08:16 Dose: 1 tab Documented by: Naloxone HCl (Naloxone Hcl 0.4 Mg/1 Ml Vial/Carp) 0.1 mg IV Q5M PRN PRN Reason: Oversedation/Resp Depression Stop: 09/02/20 12:05 Ondansetron HCl (Ondansetron Inj 2 Mg/Ml 2 Ml Vial) 4 mg IV Q6H PRN PRN Reason: Nausea And Vomiting Stop: 09/02/20 12:05 Pantoprazole Sodium (Pantoprazole 40 Mg Tab) 40 mg PO [facility] Stop: 09/01/20 08:59 Last Admin: 08/05/20 08:16 Dose: 40 mg Documented by: Potassium Chloride (Potassium Chloride Crtab 20 Meq Tabcr) 20 meq [facility] Stop: 09/01/20 08:59 Last Admin: 08/05/20 08:16 Dose: 20 meq Documented by: Sennosides (Senna 8.6 Mg Tab) 17.2 mg PO HS [facility] Stop: 09/02/20 20:59 Last Admin: 08/04/20 20:22 Dose: 17.2 mg Documented by: Torsemide (Torsemide 20 Mg Tab) 60 mg PO BID17 [facility] Stop: 08/31/20 17:59 Last Admin: 08/05/20 08:16 Dose: 60 mg Documented by: Tramadol HCl (Tramadol Hcl 50 Mg Tablet) 50 mg PO Q6H PRN PRN Reason: pain Stop: 08/31/20 17:27 Last Admin: 08/05/20 08:25 Dose: 50 mg Documented by: Warfarin Sodium (Warfarin Sod 2 Mg Tab) 2 mg PO DAILY@1600 [facility] Stop: 09/05/20 15:59
[2020-08-05] MEDS: FUROSEMIDE 40 MG in SYRINGE 0 ML IV SCH ×2 (17:21→20:29)
[2020-08-05] MEDS: FLUTICASONE/VILANTEROL 200/25MCG 14 PUFFS/INHALER INH SCH (20:27)
[2020-08-05] MEDS: SENNA 8.6 MG TAB PO SCH (20:30)
[2020-08-06] MEDS: COUGH DROP (SUGAR FREE) LOZ 24 LOZ/1 BOX BUCCAL PRN (00:47)
[2020-08-06] MEDS: HYDROcodone/ACETAMINOPHEN 10/325 TAB PO PRN ×2 (04:39→21:20)
[2020-08-06] MEDS: CLOBETASOL PROPIONATE 0.05% OINT 15 GM TUBE EXT SCH ×3 (04:43→21:55)
[2020-08-06] MEDS: PIPERACILLIN/TAZOBACTAM 4.5 GM in DEXTROSE 5% 100 ML IV SCH ×3 (04:43→20:07)
[2020-08-06] MEDS: LEVOTHYROXINE SODIUM 100 MCG TABLET PO SCH (04:44)
[2020-08-06 06:29] LABS: INR 1.2 (0.9-1.1); Partial Thromboplastin Time 25.2 Seconds (21.0-31.0)
[2020-08-06 07:01] LABS: BUN Creatinine Ratio 14.9 (10-20); Calcium 9.3 mg/dl (8.5-10.1); Creatinine Clr Calc Pharmacy 107.6 ml/min; Est GFR (African American) 75.6; Est GFR (Non-African American) 65.2; Magnesium 1.9 mg/dl (1.8-2.4); Potassium 3.2 mmol/L (3.5-5.1)
[2020-08-06] MEDS: traMADol HCL 50 MG TABLET PO PRN (07:20)
[2020-08-06] MEDS: NovoLOG INSULIN PUMP SCH ×4 (08:33→22:02)
[2020-08-06] MEDS: FUROSEMIDE 40 MG in SYRINGE 0 ML IV SCH ×3 (08:35→21:20)
[2020-08-06] MEDS: POTASSIUM CHLORIDE CRTAB 20 MEQ TABCR PO SCH (08:35)
[2020-08-06] MEDS: AMIODARONE 200 MG TAB PO SCH ×2 (08:35→21:05)
[2020-08-06] MEDS: GABAPENTIN 300 MG CAP PO SCH ×3 (08:36→21:06)
[2020-08-06] MEDS: ASPIRIN 81 MG ECTAB PO SCH (08:36)
[2020-08-06] MEDS: PANTOprazole 40 MG TAB PO SCH (08:36)
[2020-08-06] MEDS: FLUTICASONE PROPIONATE NA SPR 16 GM BTL SCH ×2 (08:36→21:02)
[2020-08-06] MEDS: HYOSCYAMINE SULFATE 0.125 MG TAB PO SCH ×3 (08:37→21:05)
[2020-08-06] MEDS: MULTIVITAMIN TAB PO SCH (08:37)
[2020-08-06] MEDS: MAGNESIUM OXIDE 400 MG TAB PO SCH (08:37)
[2020-08-06] MEDS: DOCUSATE SODIUM 100 MG CAP PO SCH ×2 (08:38→21:05)
[2020-08-06] MEDS: guaiFENesin 600 MG TABCR PO SCH ×2 (08:39→21:04)
[2020-08-06] MEDS: ARTIFICIAL TEARS OPL SCH ×4 (08:39→21:08)
[2020-08-06] MEDS: DAPTOmycin 700 MG in SYRINGE 0 ML IV SCH (13:47)
--- NOTE | 2020-08-06 14:01 | Pharmacy Report ---
Pharmacy Glycemic Short Note 2 - Date of Service August 06, 2020 - Glycemic Short BSG Results (Last 24 hours): 08/05/20 08/05/20 08/05/20 15:19 17:15 20:24 Glucose POC Glucose 77 115 H 131 H 08/06/20 08/06/20 08/06/20 05:17 08:06 12:09 Glucose 112 H POC Glucose 141 H 185 H OUTPATIENT ANTIDIABETIC REGIMEN: * Novolog insulin pump * Basal rate: 2 units/hr * CF/CR: 13/09 ASSESSMENT: 08/06 * BSGs elevated over night of the have trended back down, BSGs yesterday 77- 224 mg/dL * BSGs today 141-185 mg/dL * Pt continues self insulin pump management 08/03 * BSGs have been well controlled. Patient was NPO after midnight for procedure this morning, diet resumed with lunch * Patient continues to manage insulin pump 08/02 * Spoke with patient this AM. He has no concerns with use of his insulin pump to manage his BSGs at this time * He is having someone bring his insulin pump supplies to the hospital today. * His pump site was last changed 08/01 and he routinely changes Q 2 days. * He also has a Dexcom CGM which he has been using. He stated that the Dexcom was recalibrated against the hospital glucometer this AM. 08/01 * Ben is a 54 yo T2DM male well known to the pharmacy glycemic service from recent hospital admission * He presents today for evaluation of open wounds to the left lower leg and left foot. He has been started on daptomycin and zosyn. * He is maintained on a Novolog insulin pump as an outpatient. He had recent DM follow up on 07/31/[address] Torres. At this time, his pump settings were drastically reduced. Hospitalist prefers to continue patient on home insulin pump while admitted if possible. PLAN FOR INPATIENT GLYCEMIC CONTROL: Pt is to manage BSGs with insulin pump per outpatient settings. * Pharmacy will periodically check in with patient to assess glycemic control and address patient / nursing concerns * Patient to document BSGs and insulin doses on [id number] Flowsheet * Staff is to perform daily morning BSG to verify accuracy of CGM data. The deviation of the patients CGM value from the hospital BSG value must be less than 20%. A deviation above 20% will result in disqualification of the patient from using CGM and nursing staff will assume testing for the remainder of the day with hospital meter. It is recommended that the hospital glucose meter be used for before meal and bedtime blood glucose checks, to ensure accurate insulin dosing and to make blood glucose levels available to providers. Otherwise the patient must self-monitor blood glucose at least before meals and bedtime. If the patient becomes unable or unwilling to test at this frequency, nursing staff will assume BSG testing at the same frequency ordered by the provider If at any time the patients condition evidences that he/she is not able to manage the insulin pump (i.e. frequent hypo/hyperglycemia) Pharmacy will assume glycemic control by discontinuing the pump & managing with SQ basal bolus insulin regimen for the interim. PLAN FOR DISCHARGE: * Patient to continue insulin pump self-management, should have f/u with outpatient provider for adjustments for optimal outpatient control in the setting of unhealing wounds
--- NOTE | 2020-08-06 15:36 | Hospitalist Progress Note ---
Date of Service August 06, 2020 Assessment & Plan (1) Traumatic open wound of left lower leg: S/p exploration on 08/[address] Bates. Hemovac has been pulled. Coumadin was restarted. INR today at 1.2. Continue daily Coumadin and daily INR checks. (2) Diabetic ulcer of right foot: Status post surgical redebridement with antibiotic beads per Dr. Bates on 08/03. Cultures have been negative thus far. Remains on Zosyn and daptomycin. Infectious disease input is pending. (3) Cellulitis of left lower leg: Continue Zosyn and daptomycin at this time. Wound cultures have been negative thus far. (4) Sustained ventricular tachycardia: h/o this with ICD placement in October 2019, recently required reloading with amiodarone in last couple of weeks. Continues on amiodarone which may interact with coumadin. Continue to monitor daily INR. (5) CAD (coronary artery disease): -Continue medical therapy including ASA 81 mg daily, atorvastatin 80 mg qPM per home regimen. (6) Atrial fibrillation: -Rate/rhythm control with amiodarone, Coumadin as above. (7) CKD (chronic kidney disease) stage 3, GFR 30-59 ml/min: creatinine around his baseline. (8) Diabetes type 2, uncontrolled: -Last A1c 7.6, uncontrolled -Following with Dr. Euceda as an outpatient -Cont home CGM and insulin pump, glycemic pharmacist consulted during admission, continue ISS with [facility] glucose monitoring (9) Diabetic peripheral neuropathy associated with type 2 diabetes mellitus: cont multi-pronged treatment approach including glucose control and gabapentin (10) Morbid obesity: Lifestyle modifications were encouraged (11) Hypothyroidism: -Continue levothyroxine 100 mcg daily (12) Ischemic cardiomyopathy: No acute concerns at this time. Patient does report persistent cough. Without any concerning findings. Continue IV Lasix 40 mg 3 times daily. Hold [employer] torsemide. Continue to monitor ins and outs. ASA 81 mg daily, atorvastatin 80 mg qPM (on temporary hold in setting of daptomycin). Cough possibly seasonal due to his allergies. (13) DVT prophylaxis: SCDs Full Code Awaiting infectious disease input. Admission and Anticipated Discharge Date Admission Date: August 01, 2020 Subjective Patient is resting comfortably in the recliner. Awake, alert and oriented x3. No major active complaints at the moment. Denies any chest pain, shortness of breath, abdominal pain, diarrhea or dysuria. Does have intermittent nonproductive cough. Reports when he has seasonal allergies he usually experiences this cough. Denies any fever sore throat. Review of Systems Review of Systems: All systems reviewed & are unremarkable except as noted in HPI & below Physical Exam Physical Exam: General: A&Ox3 HENT: NCAT, MMM, EOMI Eyes: PERRLA Neck: Supple, normal range of motion CVS: normal rate and rhythm Resp: b/l decreased breath sounds Abdomen: Soft, ND/NT, +BS Extremities: Right lower extremity chronic venous stasis changes, extremities Hilario wrapped Neuro: face symmetric, strength grossly equal, no focal deficit Skin: warm and dry, no rashes/lesions/errythema MSK: normal ROM, no joint swelling/erythema Results & Data Results & Data ([facility]) Vital Signs (Past 12 Hours) Vital Signs Temp Pulse Resp BP Pulse Ox 08/06/20 15:05 36.8 C 93 H 20 145/85 H 90 08/06/20 07:05 36.9 C 106 H 20 150/84 H 91
[2020-08-06] MEDS ORDERED: POTASSIUM CHLORIDE CRTAB 20 MEQ TABCR PO ONE (15:38)
[2020-08-06] MEDS: WARFARIN SOD 2 MG TAB PO SCH (16:10)
[2020-08-06] MEDS ORDERED: hydrOXYzine HCl 25 MG TAB PO PRN (17:58)
--- NOTE | 2020-08-06 18:22 | Orthopedic Progress Note ---
Date of Service August 06, 2020 Assessment & Plan (1) Diabetic ulcer of left foot: Continue daily dressing changes. Hospitalist services spoken to infectious disease team from [facility]. They are planning IV antibiotics for 6 weeks. Case management to arrange. Patient will need to follow-up with Dr. Bates in 1 week. Itching-we will try Atarax every 8 hours to attempt to help his itching. Admission and Anticipated Discharge Date Admission Date: August 01, 2020 Subjective Postop day 3 Patient sitting up in his chair at the bedside. No complaints this afternoon. Nursing related that he was having itching and Benadryl was not helping. Hospitalist service has spoken to infectious disease service who feel the patient will need IV antibiotics for 6 weeks. Physical Exam Physical Exam: Dressings changed. Acticoat Flex 7 is covering both the left diabetic ulcer and the heel ulcer. This has been stapled on and is holding Stimulan beads in place. He has got mild to moderate drainage noted on the dressing. Slight erythema around the areas in question. No purulent drainage. Dressing change on the upper leg just below the knee. Only mild drainage noted on this dressing. The suture line is intact. No purulent drainage. He still has erythema noted in the area. It does appear to be slowly receding. Wounds redressed. Results & Data ([facility]) Vital Signs (Past 12 Hours) Vital Signs Temp Pulse Resp BP Pulse Ox 08/06/20 15:05 36.8 C 93 H 20 145/85 H 90 08/06/20 07:05 36.9 C 106 H 20 150/84 H 91
[2020-08-06] MEDS: FLUTICASONE/VILANTEROL 200/25MCG 14 PUFFS/INHALER INH SCH (21:01)
[2020-08-06] MEDS: SENNA 8.6 MG TAB PO SCH (21:07)
[2020-08-07] MEDS: PIPERACILLIN/TAZOBACTAM 4.5 GM in DEXTROSE 5% 100 ML IV SCH ×3 (04:13→20:47)
[2020-08-07] MEDS: LEVOTHYROXINE SODIUM 100 MCG TABLET PO SCH (05:57)
[2020-08-07 08:13] LABS: Basophils # (auto) 0.05 K/uL (0-0.2); Basophils % (auto) 0.6 %; Eosinophils # (auto) 0.42 K/uL (0-0.5); Eosinophils % (auto) 5.2 %; Hematocrit (blood only) 35.9 % (42-52); Hemoglobin 11.4 g/dL (14.0-18.0); Immature Granulocytes # (auto) 0.03 K/uL (0.00-0.02); Immature Granulocytes % (auto) 0.4 %; Lymphocytes # (auto) 1.04 K/uL (1.2-3.4); Lymphocytes % (auto) 12.9 %; Mean Corpuscular Hemoglobin 27.8 pg (25-34); Mean Corpuscular Hgb Conc 31.8 g/dL (32-36); Mean Corpuscular Volume 87.6 fL (80-100); Monocytes # (auto) 0.74 K/uL (0.11-0.59); Monocytes % (auto) 9.2 %; Neutrophils # (auto) 5.79 K/uL (1.4-6.5); Neutrophils % (auto) 71.7 %; Platelet Count 207 K/uL (130-400); RDW Coefficient of Variation 19.3 % (11.5-14.5); RDW Standard Deviation 60.6 fL (36.4-46.3); White Blood Count 8.07 K/uL (4.8-10.8)
[2020-08-07 08:29] LABS: INR 1.2 (0.9-1.1); Partial Thromboplastin Time 25.4 Seconds (21.0-31.0); Prothrombin Time 11.7 Seconds (9.0-12.0)
[2020-08-07 08:43] LABS: BUN Creatinine Ratio 14.8 (10-20); Calcium 9.3 mg/dl (8.5-10.1); Creatinine Clr Calc Pharmacy 116.1 ml/min; Est GFR (African American) 82.9; Est GFR (Non-African American) 71.5; Potassium 3.1 mmol/L (3.5-5.1)
[2020-08-07] MEDS ORDERED: ERGOCALCIFEROL 50,000 UNITS 1250 MCG CAP PO SCH (09:00)
[2020-08-07] MEDS: NovoLOG INSULIN PUMP SCH ×4 (09:08→22:24)
[2020-08-07] MEDS: CLOBETASOL PROPIONATE 0.05% OINT 15 GM TUBE EXT SCH ×2 (09:10→20:48)
[2020-08-07] MEDS: ARTIFICIAL TEARS OPL SCH ×4 (09:10→20:47)
[2020-08-07] MEDS: MAGNESIUM OXIDE 400 MG TAB PO SCH (09:11)
[2020-08-07] MEDS: PANTOprazole 40 MG TAB PO SCH (09:11)
[2020-08-07] MEDS: ASPIRIN 81 MG ECTAB PO SCH (09:11)
[2020-08-07] MEDS: AMIODARONE 200 MG TAB PO SCH ×2 (09:12→22:18)
[2020-08-07] MEDS: MULTIVITAMIN TAB PO SCH (09:12)
[2020-08-07] MEDS: FUROSEMIDE 40 MG in SYRINGE 0 ML IV SCH ×3 (09:13→20:48)
[2020-08-07] MEDS: guaiFENesin 600 MG TABCR PO SCH ×2 (09:13→20:49)
[2020-08-07] MEDS: GABAPENTIN 300 MG CAP PO SCH ×3 (09:13→20:49)
[2020-08-07] MEDS: HYOSCYAMINE SULFATE 0.125 MG TAB PO SCH ×3 (09:13→20:48)
[2020-08-07] MEDS: DOCUSATE SODIUM 100 MG CAP PO SCH ×2 (09:14→20:48)
[2020-08-07] MEDS: POTASSIUM CHLORIDE CRTAB 20 MEQ TABCR PO SCH (09:14)
[2020-08-07] MEDS: FLUTICASONE PROPIONATE NA SPR 16 GM BTL SCH ×2 (09:14→20:48)
[2020-08-07] MEDS ORDERED: POTASSIUM CHLORIDE CRTAB 20 MEQ TABCR PO ONE (11:15)
[2020-08-07] MEDS: HYDROcodone/ACETAMINOPHEN 10/325 TAB PO PRN (11:26)
--- NOTE | 2020-08-07 14:28 | Hospitalist Progress Note ---
Date of Service August 07, 2020 Assessment & Plan (1) Traumatic open wound of left lower leg: S/p exploration on 08/[address] Bates. Hemovac has been pulled. Coumadin was restarted. INR today at 1.2. Continue daily Coumadin and daily INR checks. (2) Diabetic ulcer of right foot: Status post surgical redebridement with antibiotic beads per Dr. Bates on 08/03. Cultures have been negative thus far. Remains on Zosyn and daptomycin. I spoke with infectious disease on 08/06 Dr. Sherry Roy recommended to complete course of Zosyn/daptomycin for total of 6 weeks. Cultures remain negative. PICC line to be obtained today. Patient to be discharged tomorrow for 2 PM. (3) Cellulitis of left lower leg: Continue Zosyn and daptomycin at this time. Wound cultures have been negative thus far. (4) Sustained ventricular tachycardia: h/o this with ICD placement in October 2019, recently required reloading with amiodarone in last couple of weeks. Continues on amiodarone which may interact with coumadin. Continue to monitor daily INR. (5) CAD (coronary artery disease): -Continue medical therapy including ASA 81 mg daily, atorvastatin 80 mg qPM per home regimen. (6) Atrial fibrillation: -Rate/rhythm control with amiodarone, Coumadin as above. (7) CKD (chronic kidney disease) stage 3, GFR 30-59 ml/min: creatinine around his baseline. (8) Diabetes type 2, uncontrolled: -Last A1c 7.6, uncontrolled -Following with Dr. Euceda as an outpatient -Cont home CGM and insulin pump, glycemic pharmacist consulted during admission, continue ISS with [facility] glucose monitoring (9) Diabetic peripheral neuropathy associated with type 2 diabetes mellitus: cont multi-pronged treatment approach including glucose control and gabapentin (10) Morbid obesity: Lifestyle modifications were encouraged (11) Hypothyroidism: -Continue levothyroxine 100 mcg daily (12) Ischemic cardiomyopathy: No acute concerns at this time. Patient does report persistent cough. Without any concerning findings. Continue IV Lasix 40 mg 3 times daily. Hold [employer] torsemide. Continue to monitor ins and outs. ASA 81 mg daily, atorvastatin 80 mg qPM (on temporary hold in setting of daptomycin). Cough possibly seasonal due to his allergies. (13) DVT prophylaxis: SCDs Full Code Awaiting infectious disease input. Admission and Anticipated Discharge Date Admission Date: August 01, 2020 Subjective Patient is doing okay this morning. Does not seem to be too interested in having a conversation. Have not had a bowel movement since admission. Refused suppository. Physical Exam Physical Exam: General: A&Ox3 HENT: NCAT, MMM, EOMI Eyes: PERRLA Neck: Supple, normal range of motion CVS: normal rate and rhythm Resp: b/l decreased breath sounds Abdomen: Soft, ND/NT, +BS Extremities: Right lower extremity chronic venous stasis changes, extremities Hilario wrapped Neuro: face symmetric, strength grossly equal, no focal deficit Skin: warm and dry, no rashes/lesions/errythema MSK: normal ROM, no joint swelling/erythema Results & Data Results & Data ([facility]) Vital Signs (Past 12 Hours) Vital Signs Temp Pulse Resp BP Pulse Ox 08/07/20 07:14 36.8 C 92 H 16 138/85 91
--- NOTE | 2020-08-07 14:29 | XRay Report ---
XR chest 1V portable HISTORY: 54 years-old Male right PICC tip placement status post placement of a right-sided PICC COMPARISON: Chest radiograph 08/01/2020 TECHNIQUE: Portable AP view the chest FINDINGS: Left subclavian single lead pacer/AICD. Cardiomegaly. Extensive right greater than left airspace opac ities redemonstrated. No pneumothorax, or large pleural effusion. Unchanged blunting of the costophre sebas angles. Right-sided PICC is noted with distal tip projected over the right atrium. IMPRESSION: 1. Status post placement of a right-sided PICC, distal tip projected over the right atrium. 2. Extensive right greater than left bilateral airspace opacities are unchanged. 3. Cardiomegaly. ACT 112: Negative or not required by law. The above report was generated using voice recognition software. It may contain grammatical, syntax o r spelling errors. Electronically signed by: Flynn Johnson M.D. 08/07/2020 2:28 PM
[2020-08-07] MEDS: DAPTOmycin 700 MG in SYRINGE 0 ML IV SCH (15:01)
[2020-08-07] MEDS: traMADol HCL 50 MG TABLET PO PRN (15:12)
--- NOTE | 2020-08-07 15:49 | XRay Report ---
XR chest 1V portable HISTORY: 54 years-old Male right PICC tip placement after adjustment repositioned right-sided PICC COMPARISON: Chest radiograph of same day at 2:11 PM TECHNIQUE: AP view of the chest FINDINGS: Left subclavian single lead pacer/AICD. Cardiomegaly. Extensive right greater than left airspace opac ities redemonstrated. No pneumothorax, or large pleural effusion. Unchanged blunting of the costophre sebas angles. Repositioned right-sided PICC is noted with distal tip projected over the spectrum locati on of the mid SVC. IMPRESSION: 1. Repositioned PICC distal tip overlies the mid SVC. 2. Unchanged extensive right greater than left bilateral pulmonary opacities. 3. Cardiomegaly. ACT 112: Negative or not required by law. The above report was generated using voice recognition software. It may contain grammatical, syntax o r spelling errors. Electronically signed by: Flynn Johnson M.D. 08/07/2020 3:48 PM
--- NOTE | 2020-08-07 16:04 | Orthopedic Progress Note ---
Date of Service August 07, 2020 Assessment & Plan (1) Diabetic ulcer of left foot: Continue daily dressing changes. Hospitalist services spoken to infectious disease team from [facility]. They are planning IV antibiotics for 6 weeks. Case management to arrange. PICC line placement Patient will need to follow-up with Dr. Bates in 1 week. Orthopedics will sign off at this time. Admission and Anticipated Discharge Date Admission Date: August 01, 2020 Subjective Postop day 4 Patient currently sitting up in bed awake and alert. No complaints. Pain is controlled. I discussed his case with the nursing staff and PICC line has been placed and they are waiting for a chest x-ray to see placement. Physical Exam Physical Exam: Dressings have been changed. We can see interval improvement in both areas. Minimal to no erythema around the left lateral foot diabetic ulcer and heel ulcer. Less drainage today. No purulence. No foul odor. Left upper leg wound is benign he has less erythema surrounding the area and looks better. Little bit less swelling. No drainage. No purulence. No foul odor. All wounds redressed with Adaptic, 4 x 4's, Kerlix and Hilario wrap. Results & Data ([facility]) Vital Signs (Past 12 Hours) Vital Signs Temp Pulse Resp BP Pulse Ox 08/07/20 07:14 36.8 C 92 H 16 138/85 91
[2020-08-07] MEDS: WARFARIN SOD 2 MG TAB PO SCH (16:55)
[2020-08-07] MEDS: MAGNESIUM HYDROXIDE SUSP 30 ML UDC PO PRN (17:26)
[2020-08-07] MEDS: FLUTICASONE/VILANTEROL 200/25MCG 14 PUFFS/INHALER INH SCH (20:47)
[2020-08-07] MEDS: SENNA 8.6 MG TAB PO SCH (20:49)
[2020-08-07] MEDS: POLYETHYLENE (MIRALAX) 17 GM PACK PO PRN (20:49)
[2020-08-07] MEDS: DOCUSATE SODIUM/SENNA 50/8.6MG TAB PO SCH (22:17)
[2020-08-08] MEDS: PIPERACILLIN/TAZOBACTAM 4.5 GM in DEXTROSE 5% 100 ML IV SCH (04:45)
[2020-08-08] MEDS: LEVOTHYROXINE SODIUM 100 MCG TABLET PO SCH (04:45)
[2020-08-08] MEDS: POLYETHYLENE (MIRALAX) 17 GM PACK PO PRN (05:23)
[2020-08-08] MEDS: MAGNESIUM HYDROXIDE SUSP 30 ML UDC PO PRN (05:24)
[2020-08-08 06:19] LABS: Partial Thromboplastin Time 26.8 Seconds (21.0-31.0)
[2020-08-08] MEDS: HYDROcodone/ACETAMINOPHEN 10/325 TAB PO PRN (07:25)
[2020-08-08] MEDS: guaiFENesin 600 MG TABCR PO SCH (09:24)
[2020-08-08] MEDS: FUROSEMIDE 40 MG in SYRINGE 0 ML IV SCH (09:24)
[2020-08-08] MEDS: AMIODARONE 200 MG TAB PO SCH (09:24)
[2020-08-08] MEDS: ASPIRIN 81 MG ECTAB PO SCH (09:24)
[2020-08-08] MEDS: PANTOprazole 40 MG TAB PO SCH (09:25)
[2020-08-08] MEDS: GABAPENTIN 300 MG CAP PO SCH (09:25)
[2020-08-08] MEDS: MULTIVITAMIN TAB PO SCH (09:25)
[2020-08-08] MEDS: DOCUSATE SODIUM 100 MG CAP PO SCH (09:26)
[2020-08-08] MEDS: DOCUSATE SODIUM/SENNA 50/8.6MG TAB PO SCH (09:26)
[2020-08-08] MEDS: CLOBETASOL PROPIONATE 0.05% OINT 15 GM TUBE EXT SCH (09:26)
[2020-08-08] MEDS: HYOSCYAMINE SULFATE 0.125 MG TAB PO SCH (09:26)
[2020-08-08] MEDS: POTASSIUM CHLORIDE CRTAB 20 MEQ TABCR PO SCH (09:26)
[2020-08-08] MEDS: MAGNESIUM OXIDE 400 MG TAB PO SCH (09:26)
[2020-08-08] MEDS: ARTIFICIAL TEARS OPL SCH (09:27)
[2020-08-08] MEDS: FLUTICASONE PROPIONATE NA SPR 16 GM BTL SCH (09:27)
[2020-08-08] MEDS: NovoLOG INSULIN PUMP SCH (09:34)
--- NOTE | 2020-08-08 12:18 | Communication Note ---
Date of Service: August 08, 2020 pt has PICC line placed home Iv antibiotics arranged pt is discharged home today plan of care discussed with pt at bedside in detail Arcelia Forrester MD
--- NOTE | 2020-08-08 14:13 | Discharge Summary ---
Date of Service August 08, 2020 Admission HPI Per Admitting Provider This is a 54 yo M with PMHx of left foot diabetic nonhealing chronic wound, DM type II, episode of sustained V. tach, chronic A. fib on Coumadin, chronic diastolic heart failure, status post ICD placement, morbid obesity, hypothyroidism, and Vit D deficiency. Pt presents to ER from wound clinic after evaluation of a new left lateral leg wound and concern for worsening cellulitis sustained from unknown trauma, within the past week, and now has an open wound of the left lateral lower leg. Redness seems to progress up to above the knee, is warm to touch, however he can only feel pressure due to diabetic neuropathy at the level of the mid mcknight. He was seen in clinic for unstageable diabetic ulcer of the right lateral foot which he reports is healing. Wounds were dressed with Aquacel Ag. And was referred to the ER for worsening cellulitis. He denies any fevers, chills or sweats. He denies any worsening pain and has been walking with use of a walker at home. After his hospitalization last time he was referred to rehab however refused. Patient lives at home with his , who is a BLOCK [employer]. He reports that he has been on long-term antibiotics before and would be willing to do that at home in hopes that he does not have a prolonged hospitalization again. During his last hospital stay he was Covid positive and therefore was unable to see Dr. Weber for left heel wound or Dr. Adams in regards to venous reflux studies. Patient is ultimately concerned that he will not get to see the specialties again because he continues to be COVID-19 positive on nasal swab. Pt had recent COVID-19 infection with superimposed pneumonia where he was hospitalized from 07/12/20-07/26/20 treated with Decadron and remdesivir. Prior to this recent hospitalization he was admitted from 06/13/2020- 06/30/2020 for sustained V. tach and group B streptococcus bacteremia from right leg right lower extremity cellulitis. Principal Diagnosis DIFFUSE LARGE B CELL LYMPHOMA METASTATIC BRAIN TUMOR CHEMO INDUCED PANCYTOPENIA ORTHOSTATIC HYPOTENSION -POSSIBLE CHEMO INDUCED PULMONARY EMBOLISM WITH PULMONARY INFRACTION Discharge Exam Physical exam: General: No acute distress, alert awake oriented x3 HEENT: PERRLA, EOMI, Heart: Regular S1-S2, no carotid bruit, no JVD, no lower extremity edema Lungs: Clear to auscultate, no wheeze or rales Abdomen: Soft nontender, no organomegaly Extremity: Left leg bandaged, no drainage noted, bilateral lower extremity chronic venous stasis change Neuro: No focal neurological deficit normal speech, normal visual field, Motor strength : normal both upper and lower extremity, sensation intact Psych: Alert awake oriented x3, normal affect Constitutional WD/WN, vitals as above + obese Eyes PERRL, conjunctivae normal, anicteric sclerae Respiratory Auscultation: + diminished lung sounds and + rales Cardiovascular Rate/Rhythm: regular rate and regular rhythm Extremities: + edema Gastrointestinal (Abdomen) Inspection/Auscultation: + abdomen distended Percussion/Palpation: abdomen soft; abdomen nontender Musculoskeletal Extremities: + foot abnormality (open wound on left foot has bandage present ) Neurologic PERRL, EOMI, accommodation nl, no face palsy, no dysarthria Psychiatric A+Ox3, euthymic affect Discharge Data Allergies Allergy/AdvReac Type Severity Reaction Status Date / Time benzonatate AdvReac Intermediate choking, Verified 07/31/20 11:44 gagging Consultations 08/01/20 15:30 ED Decision to Admit Stat 08/01/20 16:17 Consult Infectious Diseases Routine Consult Orthopedic Surgery Routine 08/05/20 14:40 Consult Nutrition Routine 08/06/20 16:40 Consult Infectious Diseases Routine Procedures Performed Operation Date: 08/03/20 09:40 Actual Procedures p Left Lateral Foot Ulcer Incision and Drainage measuring 5.5cm x 4cm x 3.9cm x 2cm deep, Left heel Ulcer Incision and Drainage measuring 6.5cm x 4.5cm x0.6cm deep, Incision and Drainage lateral Tibia wound 8 cm x 6.2 cm x 5.5cm x 2.8 cm deep, (Left) - DO agustin Li exostectomy 4th metatarsal base, cuboid and calcaneous(Left) - DO agustin Li Evacuation infected hematoma left lower leg, resection infected peroneus brevis, (Left) - Bg Weber DO Hospital Course (1) Traumatic open wound of left lower leg: S/p exploration on 08/[address] Weber. Hemovac has been pulled. Coumadin was restarted. INR today at 1.2. Continue daily Coumadin and daily INR checks. (2) Diabetic ulcer of right foot: Status post surgical redebridement with antibiotic beads per Dr. Weber on 08/03. Cultures have been negative thus far. Remains on Zosyn and daptomycin. I spoke with infectious disease on 08/06 Dr. Sherry Prakash recommended to complete course of Zosyn/daptomycin for total of 6 weeks. Cultures remain negative. PICC line to be obtained today. Patient to be discharged tomorrow for 2 PM. (3) Cellulitis of left lower leg: Continue Zosyn and daptomycin at this time. Wound cultures have been negative thus far. (4) Sustained ventricular tachycardia: h/o this with ICD placement in October 2019, recently required reloading with amiodarone in last couple of weeks. Continues on amiodarone which may interact with coumadin. Continue to monitor daily INR. (5) CAD (coronary artery disease): -Continue medical therapy including ASA 81 mg daily, atorvastatin 80 mg qPM per home regimen. (6) Atrial fibrillation: -Rate/rhythm control with amiodarone, Coumadin as above. (7) CKD (chronic kidney disease) stage 3, GFR 30-59 ml/min: creatinine around his baseline. (8) Diabetes type 2, uncontrolled: -Last A1c 7.6, uncontrolled -Following with Dr. Euceda as an outpatient -Cont home CGM and insulin pump, glycemic pharmacist consulted during admission, continue ISS with [facility] glucose monitoring (9) Diabetic peripheral neuropathy associated with type 2 diabetes mellitus: cont multi-pronged treatment approach including glucose control and gabapentin (10) Morbid obesity: Lifestyle modifications were encouraged (11) Hypothyroidism: -Continue levothyroxine 100 mcg daily (12) Ischemic cardiomyopathy: No acute concerns at this time. Patient does report persistent cough. Without any concerning findings. Continue IV Lasix 40 mg 3 times daily. Hold [employer]IST[employer] torsemide. Continue to monitor ins and outs. ASA 81 mg daily, atorvastatin 80 mg qPM (on temporary hold in setting of daptomycin). Cough possibly seasonal due to his allergies. (13) DVT prophylaxis: SCDs Full Code Awaiting infectious disease input. Total Time Total Time Spent Total Time Spent (In Minutes): 35 minutes Total Time Includes: Examination of the Patient, Discharge Planning and Medication Reconciliation Discharge Plan Discharge Items Patient Disposition: Home - Home Health Services Reason For Visit: CELLULITIS Discharge Diagnosis: Traumatic wound of left foot non healing rt diabetic foot wound type 2 DM CAD Activity: Per Instructions section Weightbearing: Left non-weightbearing Non-emergency contact: Surgeon Call non-emergency contact if: your pain is not controlled, your wound has increased redness, your wound has increased drainage and your wound pain has increased Follow-up/Referrals: Bg Weber DO [Surgeon] - 08/10/20 1:00 pm ( ) Sherry Maya DO [Primary Care Provider] - 08/13/20 12:30 pm (Date & Time 08/13/2020 12:30 PM Provider Sherry Maya DO Department [facility] ) Diet: Carb Consistent or DM2 and Heart Healthy Addtl Attending Provider Instructions: Continue Intravenous antibiotics : Zosyn and Daptomycin as instructed PICC line will be discontinued after completion of Iv antibiotics Please take all medications as instructed on discharge list below. It is recommended that you follow-up with your primary care physician within 1-2 weeks of hospital discharge to ensure you are still doing well. Please call if you have any questions or problems. You can reach a [facility] hospitalist on duty at [facility] 24 hours a day by calling [phone] Addtl Pattern Puncher Provider Instructions: ACTIVITY RECOMMENDATIONS: *Nonweightbearing on the left lower extremity at all times. SPECIAL CARE INSTRUCTIONS: * Some drainage onto the dressing is normal and is no cause for alarm. * Some swelling is natural especially after walking. When resting, keep your foot elevated above the level of your heart. * Continue elevation of the left lower extremity with her sitting or lying down. * Call the doctor's office at if you notice increased drainage, fever over 101 degrees F. or severe constant pain. BANDAGE: * Daily dressing changes. Adaptic, 4 x 4's, Kerlix wrap, Hilario wrap. * Keep bandage/cast dry at all times. FOLLOW UP VISIT: If appointment is not already scheduled: Please call [facility] to make a follow-up appointment with DR. WEBER in one week . Pending Studies at Discharge: No Stand-Alone Forms: [facility], Opioid Pain Management, Smoking Cessation Medications and DC Order Prescriptions: Continued fluticasone propionate [Flonase Allergy Relief] 50 mcg/actuation spray,suspension 2 sprays INTNAS BID RF: 0 levothyroxine 100 mcg capsule 100 mcg PO QAM RF: 0 magnesium oxide 400 mg capsule 400 mg PO QAM RF: 0 mometasone-formoterol [Dulera] 200-5 mcg/actuation HFA aerosol inhaler 2 puffs INH BID RF: 0 nitroglycerin 0.4 mg tablet, sublingual 0.4 mg SL Q5M PRN (Reason: Chest Pain) RF: 0 omeprazole 20 mg capsule,delayed release(DR/EC) 20 mg PO QAM RF: 0 tramadol 50 mg tablet 50 mg PO Q6H PRN (Reason: pain) RF: 0 Lac-Hydrin Five 5 % lotion 1 applic topical DAILY PRN (Reason: dry skin) Qty: 226 RF: 2 Trulicity 1.5 mg/0.5 mL pen injector 1.5 mg SQ WK RF: 0 hydrocodone-acetaminophen 10-325 mg/15 mL(15 mL) solution 15 ml PO Q8H PRN (Reason: Pain) RF: 0 (DME) blood-glucose meter [OneTouch Verio Flex meter] Misc See Rx Instructions .ROUTE .MEDSUPPLY Qty: 1 RF: 0 insulin aspart U-100 [Novolog U-100 Insulin aspart] 100 unit/mL solution See Rx Instructions continuous subcutaneous infusion DAILY Qty: 12 RF: 5 hyoscyamine sulfate [Levsin] 0.125 mg Tablet 0.125 mg PO TID RF: 0 gabapentin 300 mg Capsule 300 mg PO TID RF: 0 ergocalciferol (vitamin D2) 2,500 unit Capsule 50,000 unit PO WK RF: 0 albuterol sulfate [Ventolin HFA] 90 mcg/actuation Hfa Aerosol Inhaler 2 puff INHALATION QID PRN (Reason: SHORT OF BREATH) RF: 0 atorvastatin 80 mg tablet 80 mg PO PM RF: 0 clobetasol 0.05 % cream 1 applic TOPICAL BID RF: 0 potassium chloride 10 mEq tablet,ER particles/crystals 20 meq PO QAM RF: 0 aspirin 81 mg Tablet,Delayed Release (Dr/Ec) 81 mg PO DAILY RF: 0 torsemide 20 mg tablet 60 mg PO BID Qty: 180 RF: 0 warfarin 1 mg tablet 1 - 2 mg PO UD RF: 0 amiodarone 200 mg tablet 200 mg PO BID Qty: 60 RF: 0 Discontinued doxycycline hyclate 100 mg capsule 100 mg PO BID RF: 0 Discharge Orders: Discharge Order (Routine); Ordered 08/08/20 Ordered By: Arcelia Kang/Other Patient Handouts: What to Know When TakingWarfarin, Diabetes Carbs Fats Protein Admission Data Admit Date/Time: 08/01/20 16:17 Attending Provider: Arcelia Forrester Admit Provider: Katharina Flores Primary Care Provider: Sherry Maya Other Providers: Katharina Flores ; Kirk Torres ; Adolph Canales ; Alberto Payne I. ; Husam Perkins II ; Sherry Prakash ; Declan Reynoso ; Bg Weber ; Isra Camacho ; Marc Woodson ; Giuliana Park ; Imer Hodge ; Georgia Baig ; Erich Oates ; Ryan Rosa ; Declan Nelson ; Bruno Pena. ; Ryan Resendez ; Girma Howard ; Surinder Peacock ; Derrick Coyne ; Leo Yanes ; Georgia Shi ; Pierre Sarah ; Sammy Jauregui ; Nasrin Clark ; Heron Harvey ; Aurea Tomlinson ; Lyric Emery. Other Interventions: Discharge Summary Assessment (RN) Last Done: 08/08/20 11:41
== END 2020-08-08 14:19 | disposition home health service (06) | DRG 622 ==
LOC: ED 11:58 → 3E 16:17 → SUATTDRO 16:17 → 3E 17:05

== ENCOUNTER 2020-08-15 07:14 | Inpatient (IN) ==
[2020-08-15 07:44] LABS: Basophils # (auto) 0.02 K/uL (0-0.2); Basophils % (auto) 0.2 %; Eosinophils # (auto) 0.27 K/uL (0-0.5); Eosinophils % (auto) 2.9 %; Hemoglobin 10.2 g/dL (14.0-18.0); Immature Granulocytes # (auto) 0.03 K/uL (0.00-0.02); Immature Granulocytes % (auto) 0.3 %; Lymphocytes # (auto) 0.74 K/uL (1.2-3.4); Mean Corpuscular Hemoglobin 27.9 pg (25-34); Mean Corpuscular Hgb Conc 32.9 g/dL (32-36); Mean Corpuscular Volume 84.9 fL (80-100); Mean Platelet Volume 9.4 fL (7.4-10.4); Monocytes # (auto) 0.86 K/uL (0.11-0.59); Monocytes % (auto) 9.3 %; Neutrophils # (auto) 7.37 K/uL (1.4-6.5); Neutrophils % (auto) 79.3 %; Platelet Count 415 K/uL (130-400); RDW Coefficient of Variation 19.4 % (11.5-14.5); RDW Standard Deviation 60.4 fL (36.4-46.3); Red Blood Count 3.65 M/uL (4.7-6.1); White Blood Count 9.29 K/uL (4.8-10.8)
[2020-08-15 07:56] LABS: INR 2.5 (0.9-1.1); Partial Thromboplastin Ratio 1.4; Partial Thromboplastin Time 36.4 Seconds (21.0-31.0); Prothrombin Time 23.8 Seconds (9.0-12.0)
[2020-08-15 08:02] LABS: Albumin Level 1.8 gm/dl (3.4-5.0); BUN Creatinine Ratio 16.5 (10-20); Calcium 8.9 mg/dl (8.5-10.1); Creatinine Clr Calc Pharmacy 107.4 ml/min; Est GFR (African American) 72.7; Est GFR (Non-African American) 62.7; Magnesium 1.9 mg/dl (1.8-2.4); Potassium 2.6 mmol/L (3.5-5.1)
[2020-08-15] MEDS ORDERED: POTASSIUM CHLORIDE / WTR 10 MEQ/100 ML PLCT IV ONE (08:09)
--- NOTE | 2020-08-15 08:11 | Emergency Department Note ---
History of Present Illness General Chief complaint: Shortness of Breath/Dyspnea Time Seen by Provider: 08/15/20 07:21 History of Present Illness This is a 54-year-old male that presents to the emergency department via EMS with complaints of "shortness of breath". Patient has a complex and extensive past medical history. Patient currently has PICC line in place and is receiving a 6-week course of what is believed to be Dapto/Zosyn secondary to lower extremity infection. He also notes recent lower extremity surgery by Dr. Bates. Patient states that he was doing well at home however noting over the past few days more shortness of breath. He feels this is more profound with exertion and better with rest. He has been checking his oxygen at home and notes that this morning it was in the mid 70s therefore prompting arrival here via EMS. On arrival here his oxygen saturation on room air was in the low 80s. The patient was placed on oxygen and upon my arrival to examine the patient he was feeling much better and was saturating normally. The patient denies any chest pain. He does feel some chills. He denies any fevers, nausea, vomiting or abdominal pain. Patient notes he is currently on warfarin for A. fib. He denies any history of PE or DVT. Patient currently does not feel short of lui th now that he is on oxygen supplementation. He does not wear supplemental oxygen at home. Patient states that he does sleep with BiPAP. Home Medications Medication Instructions Recorded Confirmed Type fluticasone propionate 50 2 sprays INTNAS BID gm 12/21/17 08/15/20 History mcg/actuation nasal spray,suspension levothyroxine 100 mcg capsule 100 mcg PO QAM 12/21/17 08/15/20 History magnesium oxide 400 mg PO QAM cap 12/21/17 08/15/20 History mometasone-formoterol HFA 200 2 puffs INH BID 12/21/17 08/15/20 History mcg-5 mcg/actuation aerosol inhaler nitroglycerin 0.4 mg sublingual 0.4 mg SL Q5M PRN 12/21/17 08/15/20 History tablet omeprazole 20 mg capsule,delayed 20 mg PO QAM 12/21/17 08/15/20 History release tramadol 50 mg tablet 50 mg PO Q6H PRN 12/21/17 08/15/20 History ergocalciferol (vitamin D2) 50,000 unit PO WK 04/12/19 08/15/20 History gabapentin 300 mg PO TID 04/12/19 08/15/20 History hyoscyamine sulfate [Levsin] 0.125 mg PO TID 04/12/19 08/15/20 History atorvastatin 80 mg PO HS 01/18/20 08/15/20 History clobetasol 1 applic TOPICAL BID 01/18/20 08/15/20 History potassium chloride 20 meq PO QAM 01/18/20 08/15/20 History blood-glucose meter #1 ea 02/21/20 08/01/20 Rx insulin aspart U-100 100 unit/mL See Rx Instructions CONTINUOUS 02/29/20 Rx subcutaneous solution SUBCUTANEOUS INFUSION DAILY #12 ml dulaglutide 1.5 mg/0.5 mL 1.5 mg SQ WK ml 05/03/20 08/15/20 History subcutaneous pen injector albuterol sulfate [Ventolin HFA] 2 puff INHALATION QID PRN 05/30/20 08/15/20 History aspirin 81 mg PO QAM 06/12/20 08/15/20 History torsemide 60 mg PO BID #180 tab 06/29/20 08/15/20 Rx hydrocodone 10 mg-acetaminophen 15 ml PO Q8H PRN 07/12/20 08/15/20 History 325 mg/15 mL (15 mL) oral solution warfarin 1 - 2 mg PO UD 07/12/20 08/15/20 History amiodarone 200 mg PO BID #60 tab 07/25/20 08/15/20 Rx ammonium lactate [Lac-Hydrin Five] 1 applic TOPICAL DAILY PRN 08/15/20 08/15/20 History Allergies Allergy/AdvReac Type Severity Reaction Status Date / Time benzonatate AdvReac Intermediate choking, Verified 08/15/20 08:29 gagging Past Med/Surg History Medical History Arthritis Asthma well controlled, daily group home 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 Bacteremia due to group B Streptococcus CAD (coronary artery disease) Cardiac defibrillator in situ 2007 with replacement 03/2020. follows with Dr. Maya. CKD (chronic kidney disease) stage 3, GFR 30-59 ml/min Deformity of foot Depression Diabetes type 2, uncontrolled Diabetic peripheral neuropathy associated with type 2 diabetes mellitus Dyslipidemia GERD (gastroesophageal reflux disease) H/O osteomyelitis History of diabetic ulcer of foot Hx of myocardial infarction found on testing Hx of osteomyelitis Hx of sepsis 06/2019 Hypertension Hypokalemia Hypothyroidism Ischemic cardiomyopathy Adams fracture Base of left fifth metatarsal, nonhealing x years Lymphedema Morbid obesity Rectal bleeding Sleep apnea BIPAP Sustained VT (ventricular tachycardia) Venous stasis ulcer of right lower leg with edema of right lower leg Vitamin D deficiency Surgical History H/O cardiac radiofrequency ablation OCTOBER 2019 ([facility]) AT COUNTS INCLUDE 234 BEDS AT [facility] H/O foot surgery LEFT FOOT ULCER DEBRIDEMENT H/O shoulder surgery left History of cardiac cath V. tach -- no stent. 06/2019. unsure where it was done History of colonoscopy History of esophagogastroduodenoscopy (EGD) History of sinus surgery Hx of amputation of lesser toe Hx of tonsillectomy Family History Sister Family history of diabetes mellitus 2 Grandmother (Maternal) Family history of diabetes mellitus Grandfather (Maternal) Family history of diabetes mellitus Father Cancer Mother Cancer Other No family history of adverse response to anesthesia Social History Smoking Status: Never smoker Second Hand Exposure: No; Hx Alcohol Use: Yes Alcohol type: other Hx Substance Use: No Preferred Language: Maldivian Communication Ability: Effective 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 Beliefs That Will Affect Care: None marital status: Current Living Situation: Spouse current occupational status: disabled Feels Safe at Home: Yes Safety Concerns: Feels Safe At This Time Assistive Devices: BiPap and Glasses Review of Systems A total of 10 systems reviewed and were otherwise negative Physical Exam Vital Signs Vital Signs - 24 hr 08/15/20 07:20 08/15/20 07:31 08/15/20 07:38 Temperature 36.9 C Temperature Source Oral Pulse Rate 85 88 82 Pulse Rate from SpO2 Sensor 86 86 Pulse Rhythm Regular Pulse Strength Normal Respiratory Rate 23 20 17 Respiratory Effort / Characteristics Non-Labored Respiratory Depth Normal Respiratory Pattern Regular Blood Pressure 151/86 H 151/85 H Blood Pressure Mean 107 107 Blood Pressure Position Sitting Pulse Oximetry 97 82 L 97 Oxygen Delivery Method Nasal Cannula Oxygen Flow Rate 0 Sepsis Recent Fever Within 48 Hours No Sepsis New/Unexplained Change in Mental Status No Sepsis Action Taken by Nursing No Action Required Oxygen Flow Rate - Titration 2 Pulse Oximetry Post Tiitration 97 08/15/20 07:39 08/15/20 08:00 08/15/20 08:30 Temperature Temperature Source Pulse Rate 83 83 Pulse Rate from SpO2 Sensor 79 82 Pulse Rhythm Pulse Strength Respiratory Rate 23 Respiratory Effort / Characteristics Respiratory Depth Respiratory Pattern Blood Pressure Blood Pressure Mean Blood Pressure Position Pulse Oximetry 97 95 Oxygen Delivery Method Nasal Cannula Oxygen Flow Rate Sepsis Recent Fever Within 48 Hours Sepsis New/Unexplained Change in Mental Status Sepsis Action Taken by Nursing Oxygen Flow Rate - Titration Pulse Oximetry Post Tiitration 08/15/20 09:00 08/15/20 09:01 08/15/20 09:30 Temperature Temperature Source Pulse Rate 85 84 80 Pulse Rate from SpO2 Sensor 84 82 Pulse Rhythm Pulse Strength Respiratory Rate 22 23 24 Respiratory Effort / Characteristics Respiratory Depth Respiratory Pattern Blood Pressure 121/57 L Blood Pressure Mean 78 Blood Pressure Position Pulse Oximetry 97 95 Oxygen Delivery Method Oxygen Flow Rate Sepsis Recent Fever Within 48 Hours Sepsis New/Unexplained Change in Mental Status Sepsis Action Taken by Nursing Oxygen Flow Rate - Titration Pulse Oximetry Post Tiitration 08/15/20 09:31 Temperature Temperature Source Pulse Rate 79 Pulse Rate from SpO2 Sensor 81 Pulse Rhythm Pulse Strength Respiratory Rate 23 Respiratory Effort / Characteristics Respiratory Depth Respiratory Pattern Blood Pressure 129/64 Blood Pressure Mean 85 Blood Pressure Position Pulse Oximetry 96 Oxygen Delivery Method Oxygen Flow Rate Sepsis Recent Fever Within 48 Hours Sepsis New/Unexplained Change in Mental Status Sepsis Action Taken by Nursing Oxygen Flow Rate - Titration Pulse Oximetry Post Tiitration VITAL SIGNS - Vital signs and nursing notes were reviewed. Hypoxic, otherwise stable. GENERAL -54-year-old male appearing his stated age who is in no acute distress. No evidence of increased work of breathing. No drooling, stridor, trismus or wheezing. Communicates well with provider and answers questions appropriately. SKIN -chronic appearing erythema to the lower extremities. Bandages overlying the left foot noted. HEAD - NC/AT. EYES - PERRL with EOMI bilaterally. Sclera anicteric. EARS - No deformities of external structures noted on gross examination bilaterally. NOSE - Midline and without cyanosis. MOUTH/OROPHARYNX - Without perioral cyanosis. NECK - Neck with FROM.No nuchal rigidity. LUNGS - Chest wall symmetric without accessory muscle use, intercostals retractions, or central cyanosis. Normal vesicular breath sounds CTA B/L. No wheezes, rales, or rhonchi appreciated. CARDIAC - RRR with S1/S2. No murmur, rubs, or gallops appreciated. ABDOMEN - Abdominal contour normal without pulsations or visible masses. BS normoactive all four quadrants. No tenderness, palpable masses, hepatosplen omegaly, or ascites noted. EXTREMITIES - No clubbing or peripheral cyanosis. Chronic appearing erythema to the lower extremities noted with bandage in place. +5/5 strength noted in UE/LE bilaterally. NEUROLOGIC - Cranial nerves II through XII grossly intact. Sensory intact to light touch throughout. PSYCH - A&O, and cooperates fully with examiner. Pt is very pleasant and interacts well with examiner. GCS 15. Course Administered Medications Gabapentin (Gabapentin 300 Mg Cap) 300 mg PO TID [facility] Stop: 09/14/20 13:59 Last Admin: 08/15/20 14:21 Dose: 300 mg Documented by: [id number] Hyoscyamine (Hyoscyamine Sulfate 0.125 Mg Tab) 0.125 mg PO TID [facility] Stop: 09/14/20 13:59 Last Admin: 08/15/20 14:22 Dose: 0.125 mg Documented by: [id number] Furosemide 40 mg/ Syringe 4 mls @ 4 mls/min IV TID [facility] Stop: 09/14/20 13:59 Last Admin: 08/15/20 14:20 Dose: 4 mls/min Documented by: [id number] Piperacillin Sod/Tazobactam (Sod 4.5 gm/ Dextrose) 120 mls @ 30 mls/hr IV Q8H [facility]; Protocol Stop: 09/12/20 23:59 Last Admin: 08/15/20 14:16 Dose: 30 mls/hr Documented by: [id number] Potassium Chloride (K Enzo / Wtr) 10 meq in 100 mls @ 100 mls/hr IV Q1H [facility] Stop: 08/15/20 16:59 Last Admin: 08/15/20 15:54 Dose: 100 mls/hr Documented by: [id number] Infusion: 08/15/20 15:31 Dose: 100 mls/hr Documented by: [id number] Admin: 08/15/20 14:31 Dose: 100 mls/hr Documented by: [id number] Insulin Aspart (Novolog Insulin Pump) 1 ea N/A ACHS [facility]; Protocol Stop: 09/14/20 12:59 Last Admin: 08/15/20 14:21 Dose: 1 ea Documented by: [id number] Miscellaneous (Clobetasol Cream: Order Awaiting Action) 1 ea N/A QS [facility] Stop: 09/14/20 15:59 Last Admin: 08/15/20 15:55 Dose: Not Given Documented by: [id number] Tramadol HCl (Tramadol Hcl 50 Mg Tablet) 50 mg PO Q6H PRN PRN Reason: pain Stop: 09/14/20 11:47 Last Admin: 08/15/20 12:53 Dose: 50 mg Documented by: [id number] Warfarin Sodium (Warfarin Sod 2 Mg Tab) 2 mg PO DAILY@1600 [facility] Stop: 09/14/20 15:59 Last Admin: 08/15/20 15:55 Dose: 2 mg Documented by: [id number] Discontinued Medications Furosemide (Furosemide 40 Mg/4 Ml Vial) 40 mg IV NOW STA Stop: 08/15/20 10:29 Last Admin: 08/15/20 10:57 Dose: 40 mg Documented by: [id number] Potassium Chloride (K Enzo / Wtr) 10 meq in 100 mls @ 100 mls/hr IV ONE ONE Stop: 08/15/20 09:08 Last Infusion: 08/15/20 10:26 Dose: 0 mls/hr Documented by: [id number] Admin: 08/15/20 09:26 Dose: 100 mls/hr Documented by: [id number] Ioversol (Optiray 350 500ml) 120 ml IV ONCE ONE Stop: 08/15/20 08:16 Last Admin: 08/15/20 08:15 Dose: 120 ml Documented by: [id number] Potassium Chloride (Potassium Chloride Crtab 20 Meq Tabcr) 40 meq PO NOW STA Stop: 08/15/20 09:51 Last Admin: 08/15/20 10:56 Dose: 40 meq Documented by: [id number] Potassium Chloride (Potassium Chloride Crtab 20 Meq Tabcr) 40 meq PO ONE ONE Stop: 08/15/20 16:01 Last Admin: 08/15/20 15:55 Dose: 40 meq Documented by: [id number] Tramadol HCl (Tramadol Hcl 50 Mg Tablet) 25 mg PO NOW STA Stop: 08/15/20 08:34 Last Admin: 08/15/20 09:27 Dose: 25 mg Documented by: [id number] Critical Care Time Critical Care Time: Yes Total Critical Care Time: 36 I have personally spent greater than 36 minutes of critical care time in the direct management of this patient. This includes bedside care, interpretation of diagnostic studies, and testing, discussion with consultants, patient, and other required patient management activities. This 36 minutes is in excess of all separately billable procedures. Medical Decision Making Laboratory Data Result diagrams: 08/15/20 06:55 08/15/20 06:55 Lab Results 08/15/20 08/15/20 08/15/20 Range/Units 06:55 06:55 06:55 WBC 9.29 (4.8-10.8) K/uL RBC 3.65 L (4.7-6.1) M/uL Hgb 10.2 L (14.0-18.0) g/dL Hct 31.0 L (42-52) % MCV 84.9 (80-100) fL MCH 27.9 (25-34) pg MCHC 32.9 (32-36) g/dL RDW Std Deviation 60.4 H (36.4-46.3) fL RDW Coeff of Мария 19.4 H (11.5-14.5) % Plt Count 415 H (130-400) K/uL MPV 9.4 (7.4-10.4) fL Immature Gran % (Auto) 0.3 % Neut % (Auto) 79.3 % Lymph % (Auto) 8.0 % Titus % (Auto) 9.3 % Eos % (Auto) 2.9 % Baso % (Auto) 0.2 % Neut # (Auto) 7.37 H (1.4-6.5) K/uL Lymph # (Auto) 0.74 L (1.2-3.4) K/uL Titus # (Auto) 0.86 H (0.11-0.59) K/uL Eos # (Auto) 0.27 (0-0.5) K/uL Baso # (Auto) 0.02 (0-0.2) K/uL Immature Gran # (Auto) 0.03 H (0.00-0.02) K/uL PT (9.0-12.0) Seconds INR (0.9-1.1) APTT (21.0-31.0) Seconds PTT Ratio Sodium 135 L (136-145) mmol/L Potassium 2.6 L (3.5-5.1) mmol/L Chloride 100 (98-107) mmol/L Carbon Dioxide 29 (21-32) mmol/L Anion Gap 7.0 (3-11) BUN 21 H (7-18) mg/dl Creatinine 1.27 (0.6-1.4) mg/dl Est Cr Clr Drug Dosing 107.4 ml/min Est GFR ( Amer) 72.7 Est GFR (Non-Af Amer) 62.7 BUN/Creatinine Ratio 16.5 (10-20) Glucose 124 H (70-99) mg/dl Lactate (0.4-2.0) mmol/L Calcium 8.9 (8.5-10.1) mg/dl Magnesium 1.9 (1.8-2.4) mg/dl Total Bilirubin 0.9 (0.2-1) mg/dl AST 27 (15-37) U/L ALT 15 (12-78) U/L Alkaline Phosphatase 102 (45-117) U/L Troponin I 0.091 H* (0-0.045) ng/ml NT-Pro-B Natriuret Pep 3774 H (0-900) pg/ml Total Protein 7.7 (6.4-8.2) gm/dl Albumin 1.8 L (3.4-5.0) gm/dl Globulin 5.9 H (2.5-4.0) gm/dl Albumin/Globulin Ratio 0.3 L (0.9-2) Procalcitonin 0.37 (0-0.5) ng/ml TSH 0.099 L (0.300-4.500) uIu/ml Free T4 1.96 H (0.8-1.6) ng/dl COVID-19 Eval Order SARS-CoV-2 (PCR) (Negative) Influenza Type A (PCR) (Neg) Influenza Type B (PCR) (Neg) RSV (RT-PCR) (Neg) 08/15/20 08/15/20 08/15/20 Range/Units 06:55 07:50 07:50 WBC (4.8-10.8) K/uL RBC (4.7-6.1) M/uL Hgb (14.0-18.0) g/dL Hct (42-52) % MCV (80-100) fL MCH (25-34) pg MCHC (32-36) g/dL RDW Std Deviation (36.4-46.3) fL RDW Coeff of Мария (11.5-14.5) % Plt Count (130-400) K/uL MPV (7.4-10.4) fL Immature Gran % (Auto) % Neut % (Auto) % Lymph % (Auto) % Titus % (Auto) % Eos % (Auto) % Baso % (Auto) % Neut # (Auto) (1.4-6.5) K/uL Lymph # (Auto) (1.2-3.4) K/uL Titus # (Auto) (0.11-0.59) K/uL Eos # (Auto) (0-0.5) K/uL Baso # (Auto) (0-0.2) K/uL Immature Gran # (Auto) (0.00-0.02) K/uL PT 23.8 H (9.0-12.0) Seconds INR 2.5 H (0.9-1.1) APTT 36.4 H (21.0-31.0) Seconds PTT Ratio 1.4 Sodium (136-145) mmol/L Potassium (3.5-5.1) mmol/L Chloride (98-107) mmol/L Carbon Dioxide (21-32) mmol/L Anion Gap (3-11) BUN (7-18) mg/dl Creatinine (0.6-1.4) mg/dl Est Cr Clr Drug Dosing ml/min Est GFR ( Amer) Est GFR (Non-Af Amer) BUN/Creatinine Ratio (10-20) Glucose (70-99) mg/dl Lactate (0.4-2.0) mmol/L Calcium (8.5-10.1) mg/dl Magnesium (1.8-2.4) mg/dl Total Bilirubin (0.2-1) mg/dl AST (15-37) U/L ALT (12-78) U/L Alkaline Phosphatase (45-117) U/L Troponin I (0-0.045) ng/ml NT-Pro-B Natriuret Pep (0-900) pg/ml Total Protein (6.4-8.2) gm/dl Albumin (3.4-5.0) gm/dl Globulin (2.5-4.0) gm/dl Albumin/Globulin Ratio (0.9-2) Procalcitonin (0-0.5) ng/ml TSH (0.300-4.500) uIu/ml Free T4 (0.8-1.6) ng/dl COVID-19 Eval Order [facility]FluRsv at [facility] SARS-CoV-2 (PCR) POSITIVE A* (Negative) Influenza Type A (PCR) Negative (Neg) Influenza Type B (PCR) Negative (Neg) RSV (RT-PCR) Negative (Neg) 08/15/20 Range/Units 07:55 WBC (4.8-10.8) K/uL RBC (4.7-6.1) M/uL Hgb (14.0-18.0) g/dL Hct (42-52) % MCV (80-100) fL MCH (25-34) pg MCHC (32-36) g/dL RDW Std Deviation (36.4-46.3) fL RDW Coeff of Мария (11.5-14.5) % Plt Count (130-400) K/uL MPV (7.4-10.4) fL Immature Gran % (Auto) % Neut % (Auto) % Lymph % (Auto) % Titus % (Auto) % Eos % (Auto) % Baso % (Auto) % Neut # (Auto) (1.4-6.5) K/uL Lymph # (Auto) (1.2-3.4) K/uL Titus # (Auto) (0.11-0.59) K/uL Eos # (Auto) (0-0.5) K/uL Baso # (Auto) (0-0.2) K/uL Immature Gran # (Auto) (0.00-0.02) K/uL PT (9.0-12.0) Seconds INR (0.9-1.1) APTT (21.0-31.0) Seconds PTT Ratio Sodium (136-145) mmol/L Potassium (3.5-5.1) mmol/L Chloride (98-107) mmol/L Carbon Dioxide (21-32) mmol/L Anion Gap (3-11) BUN (7-18) mg/dl Creatinine (0.6-1.4) mg/dl Est Cr Clr Drug Dosing ml/min Est GFR ( Amer) Est GFR (Non-Af Amer) BUN/Creatinine Ratio (10-20) Glucose (70-99) mg/dl Lactate 2.0 (0.4-2.0) mmol/L Calcium (8.5-10.1) mg/dl Magnesium (1.8-2.4) mg/dl Total Bilirubin (0.2-1) mg/dl AST (15-37) U/L ALT (12-78) U/L Alkaline Phosphatase (45-117) U/L Troponin I (0-0.045) ng/ml NT-Pro-B Natriuret Pep (0-900) pg/ml Total Protein (6.4-8.2) gm/dl Albumin (3.4-5.0) gm/dl Globulin (2.5-4.0) gm/dl Albumin/Globulin Ratio (0.9-2) Procalcitonin (0-0.5) ng/ml TSH (0.300-4.500) uIu/ml Free T4 (0.8-1.6) ng/dl COVID-19 Eval Order SARS-CoV-2 (PCR) (Negative) Influenza Type A (PCR) (Neg) Influenza Type B (PCR) (Neg) RSV (RT-PCR) (Neg) Imaging Data Radiologist's Impression: Chest CTA 08/15/20 07:31 CHEST CTA for PULMONARY ARTERIES CT DOSE: 995.67 mGy.cm HISTORY: dyspnea, hypoxic TECHNIQUE: Multiaxial CT images of the chest were performed following the intravenous administration of contrast to evaluate the pulmonary arteries. Maximal intensity projection images were also obtained. A dose lowering technique was utilized adhering to the principles of ALARA. COMPARISON STUDY: Chest CT 06/18/2020. FINDINGS: Limited views of the upper abdomen demonstrate normal liver, spleen, and adrenal glands. The heart is normal in size. There is a left-sided single lead pacemaker. Mild mediastinal and bilateral hilar lymphadenopathy. This is likely reactive. Trace right pleural effusion. No pericardial effusion. Normal caliber thoracic aorta with no evidence for dissection. No filling defects within the pulmonary arteries to suggest pulmonary embolus. No pneumothorax. The central airways are patent. Extensive patchy bilateral groundglass airspace opacities consistent with a viral pneumonia. This most pronounced on the right. IMPRESSION: 1. No evidence for pulmonary embolus. 2. Extensive patchy bilateral airspace opacities consistent with a viral pneumonia. 3. Trace right pleural effusion. ACT 112: Negative or not required by law. Electronically signed by: Huey Thorne M.D. 08/15/2020 9:10 AM MDM Narrative Patient was seen and evaluated as above in room a 12. Review was performed of nursing notes and vital signs. I did review pertinent previous visits and patient history. After obtaining a thorough history and physical examination the above work up was performed. Patient presents to us today with shortness of breath and hypoxia. He appears well on exam and there is no evidence of increased work of breathing on my initial exam. Options of care were discussed with the patient. IV access established. Labs were drawn. EKG was obtained on arrival and reveals normal sinus rhythm at a rate of 86 bpm. There is some artifact noted but no definite ST elevation or evidence of IA on this exam. QTc 524. QRS 98. CTA was obtained the chest after discussing benefit versus risk with the patient. It is felt that the benefit outweighs the risk. Extensive patchy bilateral airspace opacities consistent with viral pneumonia noted with a trace right pleural effusion. No PE. Laboratory studies were no leukocytosis. There is anemia noted. Platelet count mildly elevated at 415. INR 2.5. Evidence of mild dehydration with BUN at 21. Potassium 2.6 and sodium is 135. Troponin mildly elevated. Covid testing remains positive at this time. Patient saturating well here on nasal cannula. At this time I do not believe that he requires intubation. I do believe that he would benefit from further evaluation and management the inpatient setting given the extensive findings on CT suggestive of viral pneumonia in the setting of hypoxia and recent COVID-19 and potentially CHF. Patient amenable to plan of care and will be admitted to the hospital. Please refer to further documentation regarding his stay. Case was discussed with the attending physician An order was placed for continuous cardiac monitoring. The monitor shows a rate of 76 with sinus rhythm. GCS: 15 In the evaluation and treatment of this patient the following differential diagnoses were entertained: IA, PE, pericarditis, costochondritis, pleural effusion, CHF, COVID-19, COPD exacerbation, pneumothorax, among others. Impression & Plan Hypoxia, Acute dyspnea Discharge Plan Visit Data Chief Complaint: Shortness of Breath/Dyspnea ED Provider: Russel Chavez ED Midlevel Provider: Kevyn Ash Discharge Problem: Hypoxia, Acute dyspnea Patient Disposition: Admitted As Inpatient Condition: Fair Discharge Instructions Interventions: ED Discharge Assessment Last Done: 08/15/20 11:14
[2020-08-15] MEDS ORDERED: OPTIRAY 350 500ml IV ONE (08:15)
[2020-08-15 08:18] LABS: Albumin Globulin Ratio 0.3 (0.9-2); Bilirubin,Total 0.9 mg/dl (0.2-1); Globulin 5.9 gm/dl (2.5-4.0); Thyroid Stimulating Hormone 0.099 uIu/ml (0.300-4.500); Total Protein 7.7 gm/dl (6.4-8.2); Troponin I 0.091 ng/ml (0-0.045)
[2020-08-15] MEDS ORDERED: traMADol HCL 50 MG TABLET PO STA (08:33)
[2020-08-15 08:35] LABS: T4 Free Thyroxine 1.96 ng/dl (0.8-1.6)
[2020-08-15 09:02] LABS: Influenza A virus by PCR Negative (Neg); Influenza B virus by PCR Negative (Neg); RSV by PCR Negative (Neg)
[2020-08-15 09:07] LABS: SARS CoV2 RNA(COVID-19) InHosp POSITIVE (Negative)
--- NOTE | 2020-08-15 09:11 | CT Scan Report ---
CHEST CTA for PULMONARY ARTERIES CT DOSE: 995.67 mGy.cm HISTORY: dyspnea, hypoxic TECHNIQUE: Multiaxial CT images of the chest were performed following the intravenous administration of contrast to evaluate the pulmonary arteries. Maximal intensity projection images were also obtaine d. A dose lowering technique was utilized adhering to the principles of ALARA. COMPARISON STUDY: Chest CT 06/18/2020. FINDINGS: Limited views of the upper abdomen demonstrate normal liver, spleen, and adrenal glands. Th e heart is normal in size. There is a left-sided single lead pacemaker. Mild mediastinal and bilatera l hilar lymphadenopathy. This is likely reactive. Trace right pleural effusion. No pericardial effusi on. Normal caliber thoracic aorta with no evidence for dissection. No filling defects within the pulm onary arteries to suggest pulmonary embolus. No pneumothorax. The central airways are patent. Extensi ve patchy bilateral groundglass airspace opacities consistent with a viral pneumonia. This most prono unced on the right. IMPRESSION: 1. No evidence for pulmonary embolus. 2. Extensive patchy bilateral airspace opacities consistent with a viral pneumonia. 3. Trace right pleural effusion. ACT 112: Negative or not required by law. Electronically signed by: Huey Thorne M.D. 08/15/2020 9:10 AM
[2020-08-15] MEDS ORDERED: POTASSIUM CHLORIDE CRTAB 20 MEQ TABCR PO STA (09:50)
[2020-08-15] MEDS ORDERED: FUROSEMIDE 40 MG/4 ML VIAL IV STA (10:28)
--- NOTE | 2020-08-15 10:53 | History & Physical Report ---
Date of Service August 15, 2020 Assessment & Plan (1) Hypoxia: (2) Acute on chronic combined systolic (congestive) and diastolic (congestive) heart failure: This is a 54-year-old medically complex male who has significant past medical history of chronic systolic and diastolic CHF, ischemic cardiomyopathy, CAD, history of SVT, AICD placement October 2019, PAF anticoagulated on warfarin, history of DVT on warfarin, HTN, HLD, CKD stage III baseline 1.5-1.7, NINA on BiPAP, asthma, insulin-dependent T2DM, diabetic peripheral neuropathy, hypothyroidism, chronic left nonhealing diabetic foot wound who presents to ED secondary to worsening shortness of breath and hypoxia for 2 to 3 days. Pt presents with acute hypoxic, O2 sats in 80s. C/O orthopnea, PND, increased lower extremity edema, elevated pro-bnp. Sx likely consistent with acute/chronic HFrEF, in setting of IV antibiotics. Pt admits to being compliant with medications; however may need diuretic adjusted. Received 40mg IV lasix in ED. Admit to PCU lasix 40mg IV TID daily weight, strict I and O - 500ml thus far supplement potassium as needed cycle trops, ecg obtain echocardiogram low threshold for cards consult (3) Hypokalemia: K2.6 received 10meq IV in ED as well as 40meq orally give additional 40meq orally at 1400, repeat at 1700 replete as necessary (4) Diabetic ulcer of left foot: (5) Traumatic open wound of left lower leg: Status post exploration and debridement with placement antibiotic beads of left foot wound on 08/03/[address] Jana Lopez infectious disease was consulted and patient is to be on IV daptomycin and Zosyn for a total of 6 weeks Continue antibiotic therapy while inpatient (6) Pneumonia due to COVID-19 virus: Diagnosed with COVID-19 on 07/12 with development of viral pneumonia He received full course of IV dexamethasone and remdesivir Images are still showing development of multifocal groundglass opacities and viral pneumonia, right greater than left Continue supportive care, supplemental oxygen Likely partaking in patient's increasing shortness of breath Albuterol inhaler as needed (7) Ischemic cardiomyopathy: (8) CAD (coronary artery disease): (9) Hypertension: Patient with mixed diastolic and systolic CHF, treatment as above Continue ASA, Lasix Statin on hold Last echocardiogram 05/26/2019 showed EF 30 to 35% with large apical, septal, anterior septal wall motion abnormality and akinesis Repeat echocardiogram (10) S/P ICD (internal cardiac defibrillator) procedure: Hx of SVT h/o this with ICD placement in October 2019, recently required reloading with amiodarone in last couple of weeks. Continues on amiodarone which may interact with coumadin. Continue to monitor daily INR. (11) Atrial fibrillation: Rate and rhythm control with amiodarone Continue Coumadin, 2 mg daily, INR therapeutic Daily INR (12) Dyslipidemia: Hold statin in setting of daptomycin use (13) Diabetes type 2, uncontrolled: insulin dependent, T2 last a1c 7.6 07/13/20 on insulin pump consult glycemic pharmacy - appreciate their management (14) CKD (chronic kidney disease) stage 3, GFR 30-59 ml/min: Baseline creatinine 1.2-1.3 Monitor renal function (15) Diabetic peripheral neuropathy associated with type 2 diabetes mellitus: continue gabapentin (16) NINA on CPAP: Bipap at HS (17) Hypothyroidism: elevated Free T4, low TSH TSH had been low 1 month ago, now lower reduced levothyroxine from 100mcg to 88mcg repeat TSH/T4 in 1 month (18) DVT prophylaxis: continue warfarin INR daily no mechanical prophylaxis in setting of lower ext wounds Dispo: PCU PCP: Francesco FULL CODE Pt was seen and examined in collaboration with Dr. Emery, please see addendum History of Present Illness Chief Complaint: Shortness of breath x2 to 3 days. Primary Care Provider: Sherry Maya DO This is a 54-year-old medically complex male who has significant past medical history of chronic systolic and diastolic CHF, ischemic cardiomyopathy, CAD, history of SVT, AICD placement October 2019, PAF anticoagulated on warfarin, history of DVT on warfarin, HTN, HLD, CKD stage III baseline 1.5-1.7, NINA on BiPAP, asthma, insulin-dependent T2DM, diabetic peripheral neuropathy, hypothyroidism, chronic left nonhealing diabetic foot wound who presents to ED secondary to worsening shortness of breath and hypoxia for 2 to 3 days. Of significance patient has had 2 recent hospitalizations. Initially hospitalized 06/13 to 06/30/2020 secondary to right lower extremity cellulitis and group B strep bacteremia. He was then rehospitalized 07/12-07/26 secondary to worsening cellulitis and Covid pneumonia. He was treated with IV dexamethasone and remdesivir. He was discharged to home and unfortunately represented back on 08/11 and hospitalized till 08/08 secondary to left lower extremity cellulitis. He underwent exploration and I&D with antibiotic bead placement by Dr. Bates on 08/03. He had a PICC line placed and infectious disease recommended 6-week course of IV daptomycin and Zosyn. Chest x-ray imaging during that admission continue to reveal multifocal airspace opacities concerning for viral pneumonia but at that time patient was on room air. He was doing well at home until the past 2 to 3 days when he became increasingly short of breath. Shortness of breath mostly occurs when he is exerting himself or lying flat. He complains of orthopnea, PND and is having difficulty tolerating BiPAP secondary to gasping for air. He does have chronic sinus congestion, postnasal drip and occasional cough of clear sputum. He denies any fever but has chronic chills. He further denies any lightheadedness, dizziness, syncope, chest pain, palpitations, hemoptysis, nausea, vomiting, abdominal pain. Post discharge she was having difficulty with constipation and treated this with [id number] anticonstipation medications. He is now on the loose side. His appetite has overall been poor and he is unsure of any weight gain. He does admit to increasingly lower extremity edema over the past day. He feels his leg discoloration is unchanged. He denies any current pain in his left foot. He remains nonweightbearing of the left lower extremity. Patient summoned EMS this morning secondary to increasing shortness of breath and O2 saturations in the 70s. On arrival in ED he was hypoxic at 82% on room air. This responded well to 2 L of supplemental oxygen. Chest x-ray continues to show persistent bilateral airspace opacities consistent with viral pneumonia right greater than left. Lab work notable for hypokalemia at 2.6, H&H 10.2 and 31.0, elevated troponin 0.091, proBNP 3774, albumin 1.8. He continues to remain positive for SARS-CoV-2. In ED he received IV supplementation of potassium and oral tramadol for pain. Allergies Allergy/AdvReac Type Severity Reaction Status Date / Time benzonatate AdvReac Intermediate choking, Verified 08/15/20 08:29 gagging Home Medications Medication Instructions Recorded Confirmed Type fluticasone propionate 50 2 sprays INTNAS BID gm 12/21/17 08/15/20 History mcg/actuation nasal spray,suspension levothyroxine 100 mcg capsule 100 mcg PO QAM 12/21/17 08/15/20 History magnesium oxide 400 mg PO QAM cap 12/21/17 08/15/20 History mometasone-formoterol HFA 200 2 puffs INH BID 12/21/17 08/15/20 History mcg-5 mcg/actuation aerosol inhaler nitroglycerin 0.4 mg sublingual 0.4 mg SL Q5M PRN 12/21/17 08/15/20 History tablet omeprazole 20 mg capsule,delayed 20 mg PO QAM 12/21/17 08/15/20 History release tramadol 50 mg tablet 50 mg PO Q6H PRN 12/21/17 08/15/20 History ergocalciferol (vitamin D2) 50,000 unit PO WK 04/12/19 08/15/20 History gabapentin 300 mg PO TID 04/12/19 08/15/20 History hyoscyamine sulfate [Levsin] 0.125 mg PO TID 04/12/19 08/15/20 History atorvastatin 80 mg PO HS 01/18/20 08/15/20 History clobetasol 1 applic TOPICAL BID 01/18/20 08/15/20 History potassium chloride 20 meq PO QAM 01/18/20 08/15/20 History blood-glucose meter #1 ea 02/21/20 08/01/20 Rx insulin aspart U-100 100 unit/mL See Rx Instructions CONTINUOUS 02/29/20 08/15/20 Rx subcutaneous solution SUBCUTANEOUS INFUSION DAILY #12 ml dulaglutide 1.5 mg/0.5 mL 1.5 mg SQ WK ml 05/03/20 08/15/20 History subcutaneous pen injector albuterol sulfate [Ventolin HFA] 2 puff INHALATION QID PRN 05/30/20 08/15/20 History aspirin 81 mg PO QAM 06/12/20 08/15/20 History torsemide 60 mg PO BID #180 tab 06/29/20 08/15/20 Rx hydrocodone 10 mg-acetaminophen 15 ml PO Q8H PRN 07/12/20 08/15/20 History 325 mg/15 mL (15 mL) oral solution warfarin 1 - 2 mg PO UD 07/12/20 08/15/20 History amiodarone 200 mg PO BID #60 tab 07/25/20 08/15/20 Rx ammonium lactate [Lac-Hydrin Five] 1 applic TOPICAL DAILY PRN 08/15/20 08/15/20 History Past Med/Surg History Medical History Arthritis Asthma well controlled, 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 Bacteremia due to group B Streptococcus CAD (coronary artery disease) Cardiac defibrillator in situ 2007 with replacement 03/2020. follows with Dr. Maya. CKD (chronic kidney disease) stage 3, GFR 30-59 ml/min Deformity of foot Depression Diabetes type 2, uncontrolled Diabetic peripheral neuropathy associated with type 2 diabetes mellitus Dyslipidemia GERD (gastroesophageal reflux disease) H/O osteomyelitis History of diabetic ulcer of foot Hx of myocardial infarction found on testing Hx of osteomyelitis Hx of sepsis 06/2019 Hypertension Hypokalemia Hypothyroidism Ischemic cardiomyopathy Adams fracture Base of left fifth metatarsal, nonhealing x years Lymphedema Morbid obesity Rectal bleeding Sleep apnea BIPAP Sustained VT (ventricular tachycardia) Venous stasis ulcer of right lower leg with edema of right lower leg Vitamin D deficiency Surgical History H/O cardiac radiofrequency ablation OCTOBER 2019 ([facility]) AT [facility] [place] H/O foot surgery LEFT FOOT ULCER DEBRIDEMENT H/O shoulder surgery left History of cardiac cath V. tach -- no stent. 06/2019. unsure where it was done History of colonoscopy History of esophagogastroduodenoscopy (EGD) History of sinus surgery Hx of amputation of lesser toe Hx of tonsillectomy Family History Sister Family history of diabetes mellitus 2 Grandmother (Maternal) Family history of diabetes mellitus Grandfather (Maternal) Family history of diabetes mellitus Father Cancer Mother Cancer Other No family history of adverse response to anesthesia Social History Smoking Status: Never smoker Second Hand Exposure: No; Hx Alcohol Use: Yes Alcohol type: other Hx Substance Use: No Preferred Language: Arabic Communication Ability: Effective Medical Bill Processor Required: No Beliefs That Will Affect Care: None marital status: Current Living Situation: Spouse current occupational status: disabled Feels Safe at Home: Yes Safety Concerns: Feels Safe At This Time Assistive Devices: BiPap and Glasses Review of Systems Review of Systems: All systems reviewed & are unremarkable except as noted in HPI & below Physical Exam Physical Exam: Constitutional: WD/WN, morbidly obese, chronically ill- appearing, male, pale, vitals as above, NAD, sitting up in bed, pleasant, conversing easily Head: Normocephalic, Atraumatic Eyes: PERRL, conjunctivae normal, anicteric sclerae ENMT: external ear and nose normal, oropharynx normal Neck: trachea midline, no thyromegaly normal visual inspection Respiratory: On 2 L of O2, breath sounds distant secondary to body habitus, normal respiratory effort, lungs clear to auscultation, no wheeze, rales, rhonchi. Normal insp/exp effort, no accessory muscle use Cardiovascular: RRR, no murmur, bilateral chronic venous stasis changes with none pitting edema, left lower extremity CDI, Vessels: no JVD or carotid bruit Chest: normal inspection of chest Abdomen: Obese abdomen, normal bowel sounds, soft, nontender, no hepatosplenomegaly Musculoskeletal: no cyanosis or clubbing, extremities motor strength 5/5 Skin: no rashes, warm and dry normal turgor Neurologic: PERRL, EOMI, accommodation nl, no face palsy, no dysarthria CN's II-XI intact bilaterally and moves all extremities Psychiatric: A+Ox3, euthymic affect Lymphatic: no cervical or axillary lymphadenopathy : deferred Results & Data Results & Data ([facility]) Vital Signs (Past 12 Hours) Vital Signs Temp Pulse Resp BP Pulse Ox 08/15/20 09:01 84 23 95 08/15/20 09:00 85 22 121/57 L 97 08/15/20 08:30 83 23 95 08/15/20 08:00 83 97 08/15/20 07:38 82 17 97 08/15/20 07:31 36.9 C 88 20 151/85 H 82 L 08/15/20 07:20 85 23 151/86 H 97 Diagnostic Findings Chest CTA 08/15/20 07:31 CHEST CTA for PULMONARY ARTERIES CT DOSE: 995.67 mGy.cm HISTORY: dyspnea, hypoxic TECHNIQUE: Multiaxial CT images of the chest were performed following the intravenous administration of contrast to evaluate the pulmonary arteries. Maximal intensity projection images were also obtained. A dose lowering technique was utilized adhering to the principles of ALARA. COMPARISON STUDY: Chest CT 06/18/2020. FINDINGS: Limited views of the upper abdomen demonstrate normal liver, spleen, and adrenal glands. The heart is normal in size. There is a left-sided single lead pacemaker. Mild mediastinal and bilateral hilar lymphadenopathy. This is likely reactive. Trace right pleural effusion. No pericardial effusion. Normal caliber thoracic aorta with no evidence for dissection. No filling defects within the pulmonary arteries to suggest pulmonary embolus. No pneumothorax. The central airways are patent. Extensive patchy bilateral groundglass airspace opacities consistent with a viral pneumonia. This most pronounced on the right. IMPRESSION: 1. No evidence for pulmonary embolus. 2. Extensive patchy bilateral airspace opacities consistent with a viral pneumonia. 3. Trace right pleural effusion. ACT 112: Negative or not required by law. Electronically signed by: Huey Thorne M.D. 08/15/2020 9:10 AM Medications Administered Discontinued Medications Potassium Chloride (K Enzo / Wtr) 10 meq in 100 mls @ 100 mls/hr IV ONE ONE Stop: 08/15/20 09:08 Last Admin: 08/15/20 09:26 Dose: 100 mls/hr Documented by: [id number] Ioversol (Optiray 350 500ml) 120 ml IV ONCE ONE Stop: 08/15/20 08:16 Last Admin: 08/15/20 08:15 Dose: 120 ml Documented by: [id number] Tramadol HCl (Tramadol Hcl 50 Mg Tablet) 25 mg PO NOW STA Stop: 08/15/20 08:34 Last Admin: 08/15/20 09:27 Dose: 25 mg Documented by: [id number] ECG Rate (beats per minute): 86 Findings: + prolonged QT (524ms) COVID-19 Results Results COVID-19 Adm Lab Results: RBC 3.65 M/uL (4.7-6.1) L 08/15/20 WBC 9.29 K/uL (4.8-10.8) 08/15/20 Hgb 10.2 g/dL (14.0-18.0) L 08/15/20 Hct 31.0 % (42-52) L 08/15/20 Plt Count 415 K/uL (130-400) H 08/15/20 Neutrophils (%) (Auto) 79.3 % 08/15/20 Lymphocytes (%) (Auto) 8.0 % 08/15/20 Monocytes # (Auto) 0.86 K/uL (0.11-0.59) H 08/15/20 Eosinophils # (Auto) 0.27 K/uL (0-0.5) 08/15/20 Immature Granulocyte % (Auto) 0.3 % 08/15/20 Neutrophils # (Auto) 7.37 K/uL (1.4-6.5) H 08/15/20 Lymphocytes # (Auto) 0.74 K/uL (1.2-3.4) L 08/15/20 Monocytes # (Auto) 0.86 K/uL (0.11-0.59) H 08/15/20 Eosinophils # (Auto) 0.27 K/uL (0-0.5) 08/15/20 Basophils # (Auto) 0.02 K/uL (0-0.2) 08/15/20 Immature Granulocyte # (Auto) 0.03 K/uL (0.00-0.02) H 08/15/20 Na 135 mmol/L (136-145) L 08/15/20 K 2.6 mmol/L (3.5-5.1) L 08/15/20 Cl 100 mmol/L (98-107) 08/15/20 CO2 29 mmol/L (21-32) 08/15/20 Anion Gap 7.0 (3-11) 08/15/20 BUN 21 mg/dl (7-18) H 08/15/20 Creatinine 1.27 mg/dl (0.6-1.4) 08/15/20 BUN/Creatinine Ratio 16.5 (10-20) 08/15/20 Glucose Level 124 mg/dl (70-99) H 08/15/20 Ca 8.9 mg/dl (8.5-10.1) 08/15/20 Total Bilirubin 0.9 mg/dl (0.2-1) 08/15/20 AST/SGOT 27 U/L (15-37) 08/15/20 ALT/SGPT 15 U/L (12-78) 08/15/20 Alkaline Phosphatase 102 U/L (45-117) 08/15/20 Total Protein 7.7 gm/dl (6.4-8.2) 08/15/20 Albumin 1.8 gm/dl (3.4-5.0) L 08/15/20 Globulin 5.9 gm/dl (2.5-4.0) H 08/15/20 Albumin/Globulin Ratio 0.3 (0.9-2) L 08/15/20 Troponin I 0.078 ng/ml (0-0.045) H* 08/15/20 XC-Mel-G-Type Natriuretic Pep 3774 pg/ml (0-900) H 08/15/20 Procalcitonin 0.37 ng/ml (0-0.5) 08/15/20 PTT 36.4 Seconds (21.0-31.0) H 08/15/20 INR 2.5 (0.9-1.1) H 08/15/20 COVID-19 PCR POSITIVE (Negative) A* 08/15/20 Influenza Virus Type A (PCR) Negative (Neg) 08/15/20 Influenza Virus Type B (PCR) Negative (Neg) 08/15/20 Code Status & VTE Plan Code Status Full Code VTE Prophylaxis Plan VTE Prophylaxis will be ordered: No Supervising Physician Co-Signing Physician Notes Acute hypoxic respiratory failure Acute on chronic systolic/diastolic heart failure Recent diagnosis of COVID-19 Diabetic foot infection EDUCATION DIRECTOR on daptomyicn/zosyn Hypokalemia Chronic medical conditions including coronary artery disease, hypertension, ischemic cardiomyopathy s/p ICD, SVT, atrial fibrillation and hyperlipedemia Admitted to telemetry. Patient is currently on 2 L of nasal cannula. Reports that shortness of breath started roughly 2 days ago and it has been progressively getting worse. Reports orthopnea and proximal nocturnal dyspnea. Start patient on IV Lasix 40 mg 3 times daily. Continue to monitor ins and outs along with daily weights. States he has not been compliant with his BiPAP because it clogs up his ears. Will discuss with respiratory team for mask adjustment if that can assist. Continue with EDUCATION DIRECTOR daptomycin/Zosyn. Potassium repleted. We will recheck BMP later in the evening. Work with PT/OT in the morning. I performed a history and physical examination of the patient on 08/15/20, including specifically H&P. I have discussed the patient's management with the advanced practitioner. Please refer to the Lora Moise note for the documented findings and plan of care.
[2020-08-15] MEDS ORDERED: GLUCOSE 40% GEL 15 GM TUBE PO PRN (11:48)
[2020-08-15] MEDS ORDERED: NITROGLYCERIN SL 0.4 MG/TAB TAB SL PRN (11:48)
[2020-08-15] MEDS ORDERED: GLUCOSE 10 TABS/TUBE PO PRN (11:48)
[2020-08-15] MEDS ORDERED: GLUCAGON FOR INJ 1 MG VIAL SQ PRN (11:48)
[2020-08-15] MEDS ORDERED: AMMONIUM LACTATE 12% LOTION 225 GM BTL EXT PRN (11:48)
[2020-08-15] MEDS ORDERED: MAGNESIUM HYDROXIDE SUSP 30 ML UDC PO PRN (11:48)
[2020-08-15] MEDS ORDERED: POLYETHYLENE (MIRALAX) 17 GM PACK PO PRN (11:48)
[2020-08-15] MEDS ORDERED: ACETAMINOPHEN 325 MG TAB PO PRN (11:48)
[2020-08-15] MEDS ORDERED: INSULIN ASPART PER UNIT SQ SCH (11:48)
[2020-08-15] MEDS ORDERED: ALUMINUM/MAGNESIUM SUSP 30 ML UDC PO PRN (11:48)
[2020-08-15] MEDS ORDERED: PIPERACILL/TAZOBAC CONSULT ACTIVE PRN (11:48)
[2020-08-15] MEDS ORDERED: DEXTROSE 50% 50 ML SYRINGE IV PRN (11:48)
[2020-08-15] MEDS ORDERED: CARBOHYDRATES FOR HYPOGLYCEMIA PO PRN (11:48)
[2020-08-15] MEDS ORDERED: ALBUTEROL HFA 8 GM INHALER INH PRN (11:48)
[2020-08-15] MEDS ORDERED: PATIENT'S HEIGHT AND/OR WEIGHT NEEDED SCH (12:15)
[2020-08-15] MEDS ORDERED: PHARMACY GLYCEMIC MGMT CONSULT PRN (12:38)
[2020-08-15] MEDS: traMADol HCL 50 MG TABLET PO PRN (12:53)
[2020-08-15] MEDS ORDERED: INSULIN ASPART 100 UNITS/ML VIAL SC PRN (13:00)
[2020-08-15] MEDS ORDERED: POTASSIUM CHLORIDE CRTAB 20 MEQ TABCR PO SCH (14:00)
[2020-08-15] MEDS: PIPERACILLIN/TAZOBACTAM 4.5 GM in DEXTROSE 5% 100 ML IV SCH ×2 (14:16→21:06)
[2020-08-15] MEDS: FUROSEMIDE 40 MG in SYRINGE 0 ML IV SCH ×2 (14:20→21:08)
[2020-08-15] MEDS: NovoLOG INSULIN PUMP SCH ×3 (14:21→21:15)
[2020-08-15] MEDS: GABAPENTIN 300 MG CAP PO SCH ×3 (14:21→21:18)
[2020-08-15] MEDS: HYOSCYAMINE SULFATE 0.125 MG TAB PO SCH ×3 (14:22→21:18)
[2020-08-15] MEDS: POTASSIUM CHLORIDE / WTR 10 MEQ/100 ML PLCT IV SCH ×3 (14:31→16:56)
--- NOTE | 2020-08-15 15:23 | Pharmacy Report ---
Pharmacy Glycemic Short Note 2 - Date of Service August 15, 2020 - Glycemic Short BSG Results (Last 24 hours): 08/15/20 06:55 Glucose 124 H OUTPATIENT ANTIDIABETIC REGIMEN: * Novolog pump: - Basal rate 2 units/hr - CF/CR: 13/09 ASSESSMENT: * 54 yo T2DM male well known to the pharmacy glycemic service from recent hospital admissions. * He is currently admitted for CHF exacerbation. His most recent admission was for Cellulitis/ Osteo. He was started on Daptomycin + Zosyn for this and continued for 6 weeks. * He is maintained on a Novolog insulin pump as an outpatient. Hospitalist prefers to continue patient on home insulin pump while admitted if possible. * Spoke to patient today. He said he is fine with managing his pump. His basal rate is 2 units/hr. He said his settings for carb coverage has not changed from his recent admission. PLAN FOR INPATIENT GLYCEMIC CONTROL: Pt is to manage BSGs with insulin pump per outpatient settings. * Pharmacy will periodically check in with patient to assess glycemic control and address patient / nursing concerns * Patient to document BSGs and insulin doses on [id number] Flowsheet * Staff is to perform daily morning BSG to verify accuracy of CGM data. The deviation of the patients CGM value from the hospital BSG value must be less than 20%. A deviation above 20% will result in disqualification of the patient from using CGM and nursing staff will assume testing for the remainder of the day with hospital meter. It is recommended that the hospital glucose meter be used for before meal and bedtime blood glucose checks, to ensure accurate insulin dosing and to make blood glucose levels available to providers. Otherwise the patient must self-monitor blood glucose at least before meals and bedtime. If the patient becomes unable or unwilling to test at this frequency, nursing staff will assume BSG testing at the same frequency ordered by the provider If at any time the patients condition evidences that he/she is not able to manage the insulin pump (i.e. frequent hypo/hyperglycemia) Pharmacy will assume glycemic control by discontinuing the pump & managing with SQ basal bolus insuli n regimen for the interim. PLAN FOR DISCHARGE: * Patient to continue insulin pump self-management, should have f/u with outpatient provider for adjustments for optimal outpatient control.
[2020-08-15] MEDS: CLOBETASOL SCH (15:55)
[2020-08-15] MEDS: WARFARIN SOD 2 MG TAB PO SCH (15:55)
[2020-08-15] MEDS ORDERED: POTASSIUM CHLORIDE CRTAB 20 MEQ TABCR PO ONE (16:00)
--- NOTE | 2020-08-15 17:59 | XRay Report ---
XR chest 1V portable CLINICAL HISTORY: PICC LINE PLACEMENT COMPARISON STUDY: 08/07/2020 FINDINGS: The heart remains enlarged. There is a left subclavian pacer/defibrillator present. There a re bilateral pulmonary airspace opacities. There is a right-sided PICC catheter with its tip projecte d over the proximal superior vena cava.[ IMPRESSION: 1. Persistent extensive bilateral pulmonary airspace opacities 2. Right-sided PICC catheter with its tip projected over the proximal superior vena cava ACT 112: Negative or not required by law. Electronically signed by: Roberto Rashid M.D. 08/15/2020 5:57 PM
[2020-08-15] MEDS ORDERED: HYDROCORTISONE HC 2.5% CRM 30GM TUBE EXT STA (18:03)
[2020-08-15 18:49] LABS: BUN Creatinine Ratio 16.4 (10-20); Calcium 8.8 mg/dl (8.5-10.1); Creatinine Clr Calc Pharmacy 112.4 ml/min; Est GFR (African American) 78.7; Est GFR (Non-African American) 67.9; Potassium 3.2 mmol/L (3.5-5.1)
[2020-08-15] MEDS: FLUTICASONE PROPIONATE NA SPR 16 GM BTL SCH ×2 (21:07→21:18)
[2020-08-15] MEDS: AMIODARONE 200 MG TAB PO SCH ×2 (21:08→21:18)
[2020-08-15] MEDS ORDERED: HYDROCORTISONE HC 2.5% CRM 30GM TUBE EXT PRN (23:21)
[2020-08-15 23:22] LABS: Appearance Urine Clear (Clear); Bacteria Urine Automated Negative (Negative); Bilirubin Urine Negative (Negative); Blood Urine Trace (Negative); Color Urine Yellow; Epithelial Cell Urine Auto 0-5 /lpf (0-5); Glucose Urine UA Negative (Negative); Ketones Urine Negative (Negative); Leukocyte Esterase Urine Negative (Negative); Nitrite Urine Negative (Negative); RBC Urine Automated 0-4 /hpf (0-4); Specific Gravity Urine 1.014 (1.000-1.030); Urobilinogen Urine Negative (Negative); WBC Urine Automated 0 /hpf (0-5); pH Urine 7.5 (4.5-7.5)
[2020-08-15 23:29] LABS: Protein Urine Trace (Negative)
[2020-08-15] MEDS: MoRPHine SULFATE 4 MG/ML 1 ML CARP\\VIAL IV PRN (23:38)
[2020-08-15] MEDS: oxyCODONE HCL IR 5 MG TAB (IMMEDIATE RELEASE) PO PRN (23:38)
[2020-08-16] MEDS: CLOBETASOL SCH ×3 (00:58→15:22)
[2020-08-16] MEDS: LEVOTHYROXINE SODIUM 88 MCG TABLET PO SCH (06:09)
[2020-08-16] MEDS: PIPERACILLIN/TAZOBACTAM 4.5 GM in DEXTROSE 5% 100 ML IV SCH ×3 (06:09→21:06)
[2020-08-16] MEDS: oxyCODONE HCL IR 5 MG TAB (IMMEDIATE RELEASE) PO PRN (07:26)
[2020-08-16] MEDS: DAPTOmycin 700 MG in SYRINGE 0 ML IV SCH (07:27)
[2020-08-16 07:43] LABS: Basophils # (auto) 0.04 K/uL (0-0.2); Basophils % (auto) 0.5 %; Eosinophils # (auto) 0.51 K/uL (0-0.5); Eosinophils % (auto) 6.6 %; Hematocrit (blood only) 32.4 % (42-52); Hemoglobin 10.1 g/dL (14.0-18.0); Immature Granulocytes # (auto) 0.08 K/uL (0.00-0.02); Lymphocytes # (auto) 0.81 K/uL (1.2-3.4); Lymphocytes % (auto) 10.5 %; Mean Corpuscular Hgb Conc 31.2 g/dL (32-36); Mean Corpuscular Volume 86.6 fL (80-100); Mean Platelet Volume 9.4 fL (7.4-10.4); Monocytes # (auto) 0.73 K/uL (0.11-0.59); Monocytes % (auto) 9.4 %; Neutrophils # (auto) 5.56 K/uL (1.4-6.5); Nucleated RBC # (auto) 0.02 K/uL (0-0); Nucleated RBC % (auto) 0.2 %; Platelet Count 414 K/uL (130-400); RDW Coefficient of Variation 19.5 % (11.5-14.5); RDW Standard Deviation 61.5 fL (36.4-46.3); Red Blood Count 3.74 M/uL (4.7-6.1); White Blood Count 7.73 K/uL (4.8-10.8)
[2020-08-16 07:53] LABS: Prothrombin Time 28.2 Seconds (9.0-12.0)
[2020-08-16 08:10] LABS: BUN Creatinine Ratio 16.8 (10-20); Calcium 8.9 mg/dl (8.5-10.1); Creatinine Clr Calc Pharmacy 127.4 ml/min; Est GFR (African American) 91.5; Magnesium 1.9 mg/dl (1.8-2.4); Potassium 3.2 mmol/L (3.5-5.1)
[2020-08-16] MEDS: NovoLOG INSULIN PUMP SCH ×4 (08:48→21:27)
[2020-08-16] MEDS: PANTOprazole 40 MG TAB PO SCH (08:51)
[2020-08-16] MEDS: HYOSCYAMINE SULFATE 0.125 MG TAB PO SCH ×3 (08:52→21:06)
[2020-08-16] MEDS: ASPIRIN 81 MG ECTAB PO SCH (08:52)
[2020-08-16] MEDS: MAGNESIUM OXIDE 400 MG TAB PO SCH (08:52)
[2020-08-16] MEDS: GABAPENTIN 300 MG CAP PO SCH ×3 (08:52→21:06)
[2020-08-16] MEDS: AMIODARONE 200 MG TAB PO SCH ×2 (08:53→21:05)
[2020-08-16] MEDS: FLUTICASONE/VILANTEROL 200/25MCG 14 PUFFS/INHALER INH SCH (08:53)
[2020-08-16] MEDS: FLUTICASONE PROPIONATE NA SPR 16 GM BTL SCH ×2 (08:53→21:07)
[2020-08-16] MEDS ORDERED: POTASSIUM CHLORIDE CRTAB 20 MEQ TABCR PO STA (08:59)
[2020-08-16] MEDS: FUROSEMIDE 40 MG in SYRINGE 0 ML IV SCH ×3 (09:38→21:06)
--- NOTE | 2020-08-16 12:04 | Orthopedic Consultation ---
Date of Consultation August 16, 2020 Assessment & Plan (1) Diabetic ulcer of left foot: Continue current IV antibiotics Maintain nonweightbearing status on the left lower extremity with elevation of the foot when in chair or in bed Daily dressing changes on the left foot with Adaptic, 4 x 4's, ABDRosalva velezlix. Follow-up with Dr. Bates as per his next scheduled appointment. History of Present Illness Reason for Consultation: Ongoing treatment for left foot diabetic ulcer/heel ulcer Attending Physician: Lyric Emery MD History of Present Illness Patient is a 54-year-old medically complex male known to our practice who has significant past medical history of chronic systolic and diastolic CHF, ischemic cardiomyopathy, CAD, history of SVT, AICD placement October 2019, PAF anticoagulated on warfarin, history of DVT on warfarin, HTN, HLD, CKD stage III baseline 1.5-1.7, NINA on BiPAP, asthma, insulin-dependent T2DM, diabetic peripheral neuropathy, hypothyroidism, chronic left nonhealing diabetic foot wound who was admitted yesterday for acute on chronic hypoxia. Patient states that his left foot has been feeling well and he was recently at Dr. Bates's office being seen by the PA late last week. We have been asked to see him for his ongoing left foot care. Allergies Allergy/AdvReac Type Severity Reaction Status Date / Time benzonatate AdvReac Intermediate choking, Verified 08/15/20 08:29 gagging Home Medications Medication Instructions Recorded Confirmed Type fluticasone propionate 50 2 sprays INTNAS BID gm 12/21/17 08/15/20 History mcg/actuation nasal spray,suspension levothyroxine 100 mcg capsule 100 mcg PO QAM 12/21/17 08/15/20 History magnesium oxide 400 mg PO QAM cap 12/21/17 08/15/20 History mometasone-formoterol HFA 200 2 puffs INH BID 12/21/17 08/15/20 History mcg-5 mcg/actuation aerosol inhaler nitroglycerin 0.4 mg sublingual 0.4 mg SL Q5M PRN 12/21/17 08/15/20 History tablet omeprazole 20 mg capsule,delayed 20 mg PO QAM 12/21/17 08/15/20 History release tramadol 50 mg tablet 50 mg PO Q6H PRN 12/21/17 08/15/20 History ergocalciferol (vitamin D2) 50,000 unit PO WK 04/12/19 08/15/20 History gabapentin 300 mg PO TID 04/12/19 08/15/20 History hyoscyamine sulfate [Levsin] 0.125 mg PO TID 04/12/19 08/15/20 History atorvastatin 80 mg PO HS 01/18/20 08/15/20 History clobetasol 1 applic TOPICAL BID 01/18/20 08/15/20 History potassium chloride 20 meq PO QAM 01/18/20 08/15/20 History blood-glucose meter #1 ea 02/21/20 08/01/20 Rx insulin aspart U-100 100 unit/mL See Rx Instructions CONTINUOUS 02/29/20 08/15/20 Rx subcutaneous solution SUBCUTANEOUS INFUSION DAILY #12 ml dulaglutide 1.5 mg/0.5 mL 1.5 mg SQ WK ml 05/03/20 08/15/20 History subcutaneous pen injector albuterol sulfate [Ventolin HFA] 2 puff INHALATION QID PRN 05/30/20 08/15/20 History aspirin 81 mg PO QAM 06/12/20 08/15/20 History torsemide 60 mg PO BID #180 tab 06/29/20 08/15/20 Rx hydrocodone 10 mg-acetaminophen 15 ml PO Q8H PRN 07/12/20 08/15/20 History 325 mg/15 mL (15 mL) oral solution warfarin 1 - 2 mg PO UD 07/12/20 08/15/20 History amiodarone 200 mg PO BID #60 tab 07/25/20 08/15/20 Rx ammonium lactate [Lac-Hydrin Five] 1 applic TOPICAL DAILY PRN 08/15/20 08/15/20 History Patient History Medical History Arthritis Asthma well controlled, 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 Bacteremia due to group B Streptococcus CAD (coronary artery disease) Cardiac defibrillator in situ 2007 with replacement 03/2020. follows with Dr. Maya. CKD (chronic kidney disease) stage 3, GFR 30-59 ml/min Deformity of foot Depression Diabetes type 2, uncontrolled Diabetic peripheral neuropathy associated with type 2 diabetes mellitus Dyslipidemia GERD (gastroesophageal reflux disease) H/O osteomyelitis History of diabetic ulcer of foot Hx of myocardial infarction found on testing Hx of osteomyelitis Hx of sepsis 06/2019 Hypertension Hypokalemia Hypothyroidism Ischemic cardiomyopathy Adams fracture Base of left fifth metatarsal, nonhealing x years Lymphedema Morbid obesity Rectal bleeding Sleep apnea BIPAP Sustained VT (ventricular tachycardia) Venous stasis ulcer of right lower leg with edema of right lower leg Vitamin D deficiency Surgical History H/O cardiac [facility] H/O foot surgery LEFT FOOT ULCER DEBRIDEMENT H/O shoulder surgery left History of cardiac cath V. tach -- no stent. 06/2019. unsure where it was done History of colonoscopy History of esophagogastroduodenoscopy (EGD) History of sinus surgery Hx of amputation of lesser toe Hx of tonsillectomy Family History Sister Family history of diabetes mellitus 2 Grandmother (Maternal) Family history of diabetes mellitus Grandfather (Maternal) Family history of diabetes mellitus Father Cancer Mother Cancer Other No family history of adverse response to anesthesia Social History Smoking Status: Never smoker Second Hand Exposure: No; Hx Alcohol Use: Yes Alcohol type: other Hx Substance Use: No Preferred Language: Frisian Communication Ability: Effective 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 Wound care team is present redressing his right foot wound. They have also remove the dressing on the left foot. His left foot continues to look good since I last saw him. He has some mild drainage on his dressing that was serous in nature which is normal for having stimulant beads placed with the Acticoat 7 flex on top. The Acticoat is still in good place with robbie. There is no gross erythema. There is no purulence. No foul odor. There was a slight decrease in his swelling. Results & Data ([facility]) Vital Signs (Past 12 Hours) Vital Signs Temp Pulse Pulse Resp BP Pulse Ox 08/16/20 08:08 36.8 C 81 18 122/68 96 08/16/20 08:00 81 08/16/20 04:19 36.6 C 72 20 117/69 92
--- NOTE | 2020-08-16 12:13 | Electrocardiogram Report ---
Test Reason : Blood Pressure : / mmHG Vent. Rate : 086 BPM Atrial Rate : 086 BPM P-R Int : 186 ms QRS Dur : 098 ms QT Int : 438 ms P-R-T Axes : 035 -29 110 degrees QTc Int : 524 ms Poor data quality, interpretation may be adversely affected Normal sinus rhythm Poor R wave progression, consider anterior [place] vs. lead placement vs. LVH Abnormal ECG Confirmed by Nader Mcphreson ([id number]) on 08/16/2020 12:12:54 PM Referred By: REFERRED SELF Confirmed By:Austin Mcpherson
--- NOTE | 2020-08-16 12:18 | Electrocardiogram Report ---
Test Reason : Blood Pressure : / mmHG Vent. Rate : 082 BPM Atrial Rate : 082 BPM P-R Int : 210 ms QRS Dur : 106 ms QT Int : 400 ms P-R-T Axes : 040 -14 116 degrees QTc Int : 468 ms Poor data quality, interpretation may be adversely affected Sinus rhythm with 1st degree A-V block Anteroseptal infarct (cited on or before 13-JUN-2020) Abnormal ECG When compared with ECG of 15-AUG-2020 07:22, (unconfirmed) ST no longer elevated in Lateral leads T wave inversion more evident in Lateral leads Confirmed by Nader Mcpherson ([id number]) on 08/16/2020 12:18:16 PM Referred By: REFERRED SELF Confirmed By:Austin Mcpherson
--- NOTE | 2020-08-16 12:54 | Hospitalist Progress Note ---
Date of Service August 16, 2020 Assessment & Plan (1) Hypoxia: (2) Acute on chronic combined systolic (congestive) and diastolic (congestive) heart failure: This is a 54-year-old medically complex male who has significant past medical history of chronic systolic and diastolic CHF, ischemic cardiomyopathy, CAD, history of SVT, AICD placement October 2019, PAF anticoagulated on warfarin, history of DVT on warfarin, HTN, HLD, CKD stage III baseline 1.5-1.7, NINA on BiPAP, asthma, insulin-dependent T2DM, diabetic peripheral neuropathy, hypothyroidism, chronic left nonhealing diabetic foot wound who presents to ED secondary to worsening shortness of breath and hypoxia for 2 to 3 days. Patient reports to orthopnea and paroxysmal nocturnal dyspnea on admission. Likely component of acute on chronic heart failure with reduced ejection fraction. Troponin of 0.091 on admission followed by 0.078 today. Patient denies any chest pain. EKG is non-ischemic. Continue with IV Lasix 40 mg 3 times daily. Echocardiogram is pending. Continue to monitor ins and outs along with daily weights. Work with PT/OT. (3) Hypokalemia: Potassium today at 3.2. Repleted. (4) Diabetic ulcer of left foot: (5) Traumatic open wound of left lower leg: Status post exploration and debridement with placement antibiotic beads of left foot wound on 08/03/[address] Jana Lopez infectious disease was consulted and patient is to be on IV daptomycin and Zosyn for a total of 6 weeks Continue antibiotic therapy while inpatient. (6) Pneumonia due to COVID-19 virus: Diagnosed with COVID-19 on 07/12 with development of viral pneumonia He received full course of IV dexamethasone and remdesivir Images are still showing development of multifocal groundglass opacities and viral pneumonia, right greater than left Continue supportive care, supplemental oxygen Likely partaking in patient's increasing shortness of breath Albuterol inhaler as needed (7) Ischemic cardiomyopathy: (8) CAD (coronary artery disease): (9) Hypertension: Continue ASA, Lasix Statin on hold Last echocardiogram 05/26/2019 showed EF 30 to 35% with large apical, septal, anterior septal wall motion abnormality and akinesis. (10) S/P ICD (internal cardiac defibrillator) procedure: Hx of SVT h/o this with ICD placement in October 2019, recently required reloading with amiodarone in last couple of weeks. Continues with daily coumadin. INR today at 3.0 (11) Atrial fibrillation: Rate and rhythm control with amiodarone Continue Coumadin, 2 mg daily, INR therapeutic Daily INR (12) Dyslipidemia: Hold statin in setting of daptomycin use (13) Diabetes type 2, uncontrolled: insulin dependent, T2 last a1c 7.6 07/13/20 on insulin pump consult glycemic pharmacy - appreciate their management (14) CKD (chronic kidney disease) stage 3, GFR 30-59 ml/min: Baseline creatinine 1.2-1.3 Monitor renal function (15) Diabetic peripheral neuropathy associated with type 2 diabetes mellitus: continue gabapentin (16) NINA on CPAP: Bipap at HS (17) Hypothyroidism: elevated Free T4, low TSH TSH is further lower, c/w reduced levothyroxine at 88mcg repeat TSH/T4 in 1 month (18) DVT prophylaxis: continue warfarin INR daily no mechanical prophylaxis in setting of lower ext wounds Dispo: PCU PCP: Francesco FULL CODE Admission and Anticipated Discharge Date Admission Date: August 15, 2020 Subjective Doing okay this morning. He does appear a bit frustrated. Reports he does not know what is going on. Currently he is down to room air. Adequate urine output since admission. Denies any chest pain, abdominal pain or dysuria. He is having anal discomfort from his hemorrhoids. Review of Systems Review of Systems: All systems reviewed & are unremarkable except as noted in HPI & below Physical Exam Physical Exam: General: A&Ox3 HENT: NCAT, MMM, EOMI Eyes: PERRLA Neck: Supple, normal range of motion CVS: normal rate and rhythm Resp: b/l decreased breath sounds secondary to body habitus Abdomen: Soft, ND/NT Extremities: Chronic venous stasis skin changes, left lower dressings intact Neuro: face symmetric, no focal deficit MSK: no joint swelling/erythema Results & Data Results & Data ([facility]) Vital Signs (Past 12 Hours) Vital Signs Temp Pulse Pulse Resp BP Pulse Ox 08/16/20 12:00 36.8 C 82 22 131/61 95 08/16/20 08:08 36.8 C 81 18 122/68 96 08/16/20 08:00 81 08/16/20 04:19 36.6 C 72 20 117/69 92
[2020-08-16] MEDS: WARFARIN SOD 2 MG TAB PO SCH (15:24)
[2020-08-16] MEDS ORDERED: HYDROCORTISONE HC 2.5% CRM 30GM TUBE EXT ONE (15:41)
[2020-08-17] MEDS: LEVOTHYROXINE SODIUM 88 MCG TABLET PO SCH (05:35)
[2020-08-17] MEDS: PIPERACILLIN/TAZOBACTAM 4.5 GM in DEXTROSE 5% 100 ML IV SCH ×3 (05:35→21:07)
[2020-08-17] MEDS: oxyCODONE HCL IR 5 MG TAB (IMMEDIATE RELEASE) PO PRN ×3 (05:39→21:20)
[2020-08-17] MEDS: NovoLOG INSULIN PUMP SCH ×4 (08:40→21:06)
[2020-08-17] MEDS: FLUTICASONE/VILANTEROL 200/25MCG 14 PUFFS/INHALER INH SCH (08:41)
[2020-08-17] MEDS: FLUTICASONE PROPIONATE NA SPR 16 GM BTL SCH ×2 (08:41→21:05)
[2020-08-17] MEDS: DAPTOmycin 700 MG in SYRINGE 0 ML IV SCH (08:41)
[2020-08-17] MEDS: CLOBETASOL SCH ×3 (08:41→17:17)
[2020-08-17] MEDS: AMIODARONE 200 MG TAB PO SCH (08:42)
[2020-08-17] MEDS: GABAPENTIN 300 MG CAP PO SCH ×3 (08:42→21:04)
[2020-08-17] MEDS: MAGNESIUM OXIDE 400 MG TAB PO SCH (08:42)
[2020-08-17] MEDS: HYOSCYAMINE SULFATE 0.125 MG TAB PO SCH ×3 (08:43→21:04)
[2020-08-17] MEDS: PANTOprazole 40 MG TAB PO SCH (08:43)
[2020-08-17] MEDS: FUROSEMIDE 40 MG in SYRINGE 0 ML IV SCH ×2 (08:43→14:21)
[2020-08-17] MEDS: ASPIRIN 81 MG ECTAB PO SCH (08:43)
[2020-08-17] MEDS ORDERED: POTASSIUM CHLORIDE CRTAB 20 MEQ TABCR PO ONE (09:15)
[2020-08-17 10:08] LABS: INR 3.8 (0.9-1.1); Prothrombin Time 34.9 Seconds (9.0-12.0)
--- NOTE | 2020-08-17 11:41 | Pharmacy Report ---
Pharmacy Glycemic Short Note 2 - Date of Service August 17, 2020 - Glycemic Short BSG Results (Last 24 hours): 08/16/20 08/16/20 08/16/20 11:42 16:31 20:26 POC Glucose 111 H 170 H 132 H 08/17/20 08/17/20 07:42 11:24 POC Glucose 134 H 127 H OUTPATIENT ANTIDIABETIC REGIMEN: * Novolog pump: - Basal rate 2 units/hr - CF/CR: 13/09 ASSESSMENT: 08/17 * BSGs well controlled over last 48 hrs - continue with insulin pump for now 08/15 * 54 yo T2DM male well known to the pharmacy glycemic service from recent hospital admissions. * He is currently admitted for CHF exacerbation. His most recent admission was for Cellulitis/ Osteo. He was started on Daptomycin + Zosyn for this and continued for 6 weeks. * He is maintained on a Novolog insulin pump as an outpatient. Hospitalist prefers to continue patient on home insulin pump while admitted if possible. * Spoke to patient today. He said he is fine with managing his pump. His basal rate is 2 units/hr. He said his settings for carb coverage has not changed from his recent admission. PLAN FOR INPATIENT GLYCEMIC CONTROL: Pt is to manage BSGs with insulin pump per outpatient settings. * Pharmacy will periodically check in with patient to assess glycemic control and address patient / nursing concerns * Patient to document BSGs and insulin doses on [id number] Flowsheet * Staff is to perform daily morning BSG to verify accuracy of CGM data. The deviation of the patients CGM value from the hospital BSG value must be less than 20%. A deviation above 20% will result in disqualification of the patient from using CGM and nursing staff will assume testing for the remainder of the day with hospital meter. It is recommended that the hospital glucose meter be used for before meal and bedtime blood glucose checks, to ensure accurate insulin dosing and to make blood glucose levels available to providers. Otherwise the patient must self-monitor blood glucose at least before meals and bedtime. If the patient becomes unable or unwilling to test at this frequency, nursing staff will assume BSG testing at the same frequency ordered by the provider If at any time the patients condition evidences that he/she is not able to manage the insulin pump (i.e. frequent hypo/hyperglycemia) Pharmacy will assume glycemic control by discontinuing the pump & managing with SQ basal bolus insu paula regimen for the interim. PLAN FOR DISCHARGE: * Patient to continue insulin pump self-management, should have f/u with outpatient provider for adjustments for optimal outpatient control.
--- NOTE | 2020-08-17 15:43 | Cardiology Consultation ---
Date of Consultation August 17, 2020 Assessment & Plan (1) Acute on chronic combined systolic (congestive) and diastolic (congestive) heart failure: Patient is a complex 54-year-old male with underlying history as outlined above and below noting history of ischemic cardiomyopathy with at least moderate LV dysfunction. Echocardiogram today demonstrates focal apical wall motion abnormality on limited views with grossly normal LV systolic function. Patient admitted with lower extremity edema and cellulitis. Exam consistent with right heart failure and anasarca. Chest x-ray concerning for post Covid pneumonitis with diffuse infiltrates likely aggravating above. In serial review of x-rays he has had progressive infiltrates superimposed on mild chronic congestive heart failure since 07/18/2020 Recommendations: We will increase diuresis, increase furosemide 80 mg IV 3 times daily Add spironolactone 25 mg/day given chronic right heart failure and hypokalemia following renal function Patient previously on metolazone would not add until potassium stabilized Discontinue amiodarone given worsening pulmonary infiltrates. Will resume previously ordered metoprolol succinate discontinued during recent hospitalizations. Begin with metoprolol 25 mg twice per day with likely need for upward titration. Prior dosing 100 mg twice per day in April 2020 Continue CPAP and oxygen supplementation with careful following of pulmonary status with significant post Covid pneumonitis present (2) Pneumonia due to COVID-19 virus: Significant post Covid pneumonitis on chest x-ray with patient at risk for further ongoing progression (3) Right heart failure (secondary to left heart failure): (4) Morbid obesity: (5) S/P ICD (internal cardiac defibrillator) procedure: (6) Sustained ventricular tachycardia: Patient with prior VT ablation previously stable on beta-noy until recent illness. Will discontinue amiodarone due to contraindications to use gradually upward titrate beta-noy History of Present Illness Reason for Consultation: Acute hypoxic respiratory failure, edema, anasarca Requesting Physician: Dr. Allen Attending Physician: Tommy Allen MD History of Present Illness HPI patient is a 54-year-old male with complex underlying issues which include 1. Ischemic cardiomyopathy with indwelling single-lead ICD [employer]onic VISIA AF MRI VR DV V1 D1 2. Severe multivessel coronary disease by diagnostic cardiac catheterization 06/09/2019, mid left anterior descending 100% with right to left collaterals, LAD D1 100%, circumflex OM 70, mid RCA 50, proximal PDA 70% 3. Paroxysmal atrial fibrillation currently in sinus rhythm 4. Sustained ventricular tachycardia status post VT ablation 11/07/2019. Amiodarone reinitiated 07/24/2020 4. Morbid obesity with hypoventilation syndrome/obstructive sleep apnea using CPAP, no oxygen supplement 5. Recurrent lower leg cellulitis, ulcer with severe chronic lower extremity edema 6. Hypertension 7. Dyslipidemia 8. Acute Covid pneumonia 07/18/2020 Patient is referred now after recurrent hospitalization for increased lower extremity edema and cellulitis. Patient concern regarding increasing lower extremity edema and poorly healing lower extremity lesions. Notes no chest pains notes no tachypalpitations notes no syncope or near syncope. No defibrillator activation or fire. No current fevers chills or infections. Uses CPAP at home but patient notes some difficulties with its use. No oxygen supplementation Low-grade but nonproductive cough present Patient unaware of weight currently but feels its been steady current measurements suggest a 5 kg weight gain in the recent weeks Notes chronic lower extremity edema present but substantially worse over the past 1 week's time No headache or visual change No observed bleeding melena hematochezia other than hemorrhoidal issues Patient appropriately anticoagulated with warfarin Allergies Allergy/AdvReac Type Severity Reaction Status Date / Time benzonatate AdvReac Intermediate choking, Verified 08/15/20 08:29 gagging Home Medications Medication Instructions Recorded Confirmed Type fluticasone propionate 50 2 sprays INTNAS BID gm 12/21/17 08/15/20 History mcg/actuation nasal spray,suspension levothyroxine 100 mcg capsule 100 mcg PO QAM 12/21/17 08/15/20 History magnesium oxide 400 mg PO QAM cap 12/21/17 08/15/20 History mometasone-formoterol HFA 200 2 puffs INH BID 12/21/17 08/15/20 History mcg-5 mcg/actuation aerosol inhaler nitroglycerin 0.4 mg sublingual 0.4 mg SL Q5M PRN 12/21/17 08/15/20 History tablet omeprazole 20 mg capsule,delayed 20 mg PO QAM 12/21/17 08/15/20 History release tramadol 50 mg tablet 50 mg PO Q6H PRN 12/21/17 08/15/20 History ergocalciferol (vitamin D2) 50,000 unit PO WK 04/12/19 08/15/20 History gabapentin 300 mg PO TID 04/12/19 08/15/20 History hyoscyamine sulfate [Levsin] 0.125 mg PO TID 04/12/19 08/15/20 History atorvastatin 80 mg PO HS 01/18/20 08/15/20 History clobetasol 1 applic TOPICAL BID 01/18/20 08/15/20 History potassium chloride 20 meq PO QAM 01/18/20 08/15/20 History blood-glucose meter #1 ea 02/21/20 08/01/20 Rx insulin aspart U-100 100 unit/mL See Rx Instructions CONTINUOUS 02/29/20 08/15/20 Rx subcutaneous solution SUBCUTANEOUS INFUSION DAILY #12 ml dulaglutide 1.5 mg/0.5 mL 1.5 mg SQ WK ml 05/03/20 08/15/20 History subcutaneous pen injector albuterol sulfate [Ventolin HFA] 2 puff INHALATION QID PRN 05/30/20 08/15/20 History aspirin 81 mg PO QAM 06/12/20 08/15/20 History torsemide 60 mg PO BID #180 tab 06/29/20 08/15/20 Rx hydrocodone 10 mg-acetaminophen 15 ml PO Q8H PRN 07/12/20 08/15/20 History 325 mg/15 mL (15 mL) oral solution warfarin 1 - 2 mg PO UD 07/12/20 08/15/20 History amiodarone 200 mg PO BID #60 tab 07/25/20 08/15/20 Rx ammonium lactate [Lac-Hydrin Five] 1 applic TOPICAL DAILY PRN 08/15/20 08/15/20 History Patient History Medical History Arthritis Asthma well controlled, 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 Bacteremia due to group B Streptococcus CAD (coronary artery disease) Cardiac defibrillator in situ 2007 with replacement 03/2020. follows with Dr. Maya. CKD (chronic kidney disease) stage 3, GFR 30-59 ml/min Deformity of foot Depression Diabetes type 2, uncontrolled Diabetic peripheral neuropathy associated with type 2 diabetes mellitus Dyslipidemia GERD (gastroesophageal reflux disease) H/O osteomyelitis History of diabetic ulcer of foot Hx of myocardial infarction found on testing Hx of osteomyelitis Hx of sepsis 06/2019 Hypertension Hypokalemia Hypothyroidism Ischemic cardiomyopathy Adams fracture Base of left fifth metatarsal, nonhealing x years Lymphedema Morbid obesity Rectal bleeding Sleep apnea BIPAP Sustained VT (ventricular tachycardia) Venous stasis ulcer of right lower leg with edema of right lower leg Vitamin D deficiency Surgical History H/O cardiac radiofrequency ablation OCTOBER 2019 ([facility]) AT [facility] H/O foot surgery LEFT FOOT ULCER DEBRIDEMENT H/O shoulder surgery left History of cardiac cath V. tach -- no stent. 06/2019. unsure where it was done History of colonoscopy History of esophagogastroduodenoscopy (EGD) History of sinus surgery Hx of amputation of lesser toe Hx of tonsillectomy Family History Sister Family history of diabetes mellitus 2 Grandmother (Maternal) Family history of diabetes mellitus Grandfather (Maternal) Family history of diabetes mellitus Father Cancer Mother Cancer Other No family history of adverse response to anesthesia Social History Smoking Status: Never smoker Second Hand Exposure: No; Hx Alcohol Use: Yes Alcohol type: other Hx Substance Use: No Preferred Language: Emirati Communication Ability: Effective Teleprinter Required: No Beliefs That Will Affect Care: None marital status: Current Living Situation: Spouse current occupational status: disabled Feels Safe at Home: Yes Safety Concerns: Feels Safe At This Time Assistive Devices: Oxygen - Continuous and Walker Review of Systems Review of Systems: All systems reviewed & are unremarkable except as noted in HPI & below Physical Exam Constitutional: + morbidly obese; no acute distress Eyes: PERRL, conjunctivae normal, anicteric sclerae ENMT: external ear and nose normal, oropharynx normal Neck: trachea midline, no thyromegaly Respiratory: Auscultation: + diminished lung sounds Scattered diffuse crackles Cardiovascular: Rate/Rhythm: regular rate and regular rhythm Extremities: + edema (Severe 3+ or greater bilateral lower extremities with induration. ) Presacral edema is present with edema extending into mid thighs as well Gastrointestinal (Abdomen): Large distended abdomen with large panniculus Skin: + induration (Bilateral lower extremities with wounds bandaged) Neurologic: PERRL, EOMI, accommodation nl, no face palsy, no dysarthria Results & Data ([facility]) Vital Signs (Past 12 Hours) Vital Signs Temp Pulse Pulse Resp BP Pulse Ox 08/17/20 11:28 36.8 C 91 H 18 150/80 H 96 08/17/20 08:02 36.8 C 90 16 172/76 H 96 08/17/20 07:00 85 08/17/20 05:01 36.6 C 90 17 162/82 H 90 Laboratory Results Laboratory Results - last 24 hr 08/16/20 08/16/20 08/17/20 16:31 20:26 07:42 PT INR POC Glucose 170 H 132 H 134 H 08/17/20 08/17/20 09:26 11:24 PT 34.9 H INR 3.8 H POC Glucose 127 H
[2020-08-17] MEDS: SPIRONOLACTONE 25 MG TAB PO SCH (17:22)
--- NOTE | 2020-08-17 18:13 | Hospitalist Progress Note ---
Date of Service August 17, 2020 Assessment & Plan (1) Hypoxia: (2) Acute on chronic combined systolic (congestive) and diastolic (congestive) heart failure: Patient is a 54 yr male with H/O Chronic systolic and diastolic CHF, ischemic cardiomyopathy, CAD, history of SVT, AICD placement October 2019, PAF anticoagulated on warfarin, history of DVT on warfarin, HTN, HLD, CKD stage III baseline 1.5-1.7, NINA on BiPAP, asthma, insulin-dependent T2DM, diabetic peripheral neuropathy, hypothyroidism, chronic left nonhealing diabetic foot wound who presents to ED secondary to worsening shortness of breath and hypoxia for 2 to 3 days. Patient reports to orthopnea and paroxysmal nocturnal dyspnea on admission. Acute on chronic respiratory failure with hypoxia Likely Multifactorial Acute on chronic systolic/diastolic heart failure Recent extensive COVID pneumonitis could be contributing as well CTA:No evidence for pulmonary embolus. Extensive patchy bilateral airspace opacities consistent with a viral pneumonia. Trace right pleural effusion. ECHO limited due to technical difficulties. Reviewed Continue IV Lasix 80 mg 3 times daily Added spironolactone Appreciate cardiology input Discontinued amiodarone given pulmonary infiltrate Continue supplemental oxygen, CPAP as needed Monitor I's and O's, daily weight, renal function, electrolytes (3) Hypokalemia: secondary to diuresis Replace as needed (4) Diabetic ulcer of left foot: (5) Traumatic open wound of left lower leg: S/P Exploration and debridement with placement antibiotic beads of left foot wound on 08/03/[address] Bates As per ID Input pat to complete IV daptomycin and Zosyn for a total of 6 weeks Continue wound care (6) Pneumonia due to COVID-19 virus: Diagnosed with COVID-19 on 07/12 with development of viral pneumonia Completed IV dexamethasone and remdesivir course CTA as above Continue supportive care, supplemental oxygen Discussed with Pulmonology Check CRP, Procalcitonin in AM (7) Ischemic cardiomyopathy: (8) CAD (coronary artery disease): (9) Hypertension: CAD Continue ASA, Metprolol Statin on hold while on Dapto (10) S/P ICD (internal cardiac defibrillator) procedure: H/O SVT S/P ICD placement in October 2019 Amiodarone discontinued secondary to pulmonary issues Restarted metoprolol (11) Atrial fibrillation: Amiodarone DCed as above Continue metoprolol--needs up titration Supratherapeutic INR INR:3.8 Hold Coumadin today (12) Dyslipidemia: Hold statin while on daptomycin (13) Diabetes type 2, uncontrolled: HbA1c 7.6 On insulin pump consult glycemic pharmacy (14) CKD (chronic kidney disease) stage 3, GFR 30-59 ml/min: Baseline creatinine 1.2-1.3 Monitor renal function (15) Diabetic peripheral neuropathy associated with type 2 diabetes mellitus: continue gabapentin (16) NINA on CPAP: Bipap at HS (17) Hypothyroidism: Elevated Free T4, low TSH levothyroxine decreased to 88mcg Needs repeat thyroid function test in 4-6 weeks (18) DVT prophylaxis: Supratherapeutic INR Hold Coumadin for now CODE STATUS Full code Admission and Anticipated Discharge Date Admission Date: August 15, 2020 Subjective Patient is seen and examined at bedside States having dyspnea on exertion Also reports chronic cough Denies chest pain, dizziness, nausea, abdominal pain Discussed with cardiology and pulmonology today Offers no other complaints Review of Systems Review of Systems: All systems reviewed & are unremarkable except as noted in HPI & below Physical Exam Physical Exam: Physical Exam: Vitals signs as noted above General Appearance:Morbidly Obese, no apparent distress Head: normocephalic, Atraumatic Eyes: normal inspection, EOMI Neck: supple, Trachea midline Respiratory/Chest: Decreased breath sounds, scattered crackles Cardiovascular: S1, S2, No murmur Abdomen/GI:Soft, Non tender, Bowel sounds present Extremities/Musculoskeletal:normal inspection, B/L LE edema, Venous stasis changes, R foot in dressing Neurologic/Psych:AAOX3, grossly no focal neurological deficits Skin: normal color, warm Results & Data Results & Data ([facility]) Vital Signs (Past 12 Hours) Vital Signs Temp Pulse Pulse Resp BP Pulse Ox 08/17/20 15:43 36.8 C 90 19 149/69 H 97 08/17/20 11:28 36.8 C 91 H 18 150/80 H 96 08/17/20 08:02 36.8 C 90 16 172/76 H 96 08/17/20 07:00 85
[2020-08-17] MEDS: FUROSEMIDE 80 MG in SYRINGE 0 ML IV SCH (21:04)
[2020-08-17] MEDS: METOPROLOL SUCC 25MG EXT REL TAB PO SCH (21:04)
[2020-08-17] MEDS: POTASSIUM CHLORIDE CRTAB 20 MEQ TABCR PO SCH (21:04)
[2020-08-18] MEDS: CLOBETASOL SCH ×3 (01:34→15:06)
[2020-08-18] MEDS: LEVOTHYROXINE SODIUM 88 MCG TABLET PO SCH (05:48)
[2020-08-18] MEDS: PIPERACILLIN/TAZOBACTAM 4.5 GM in DEXTROSE 5% 100 ML IV SCH ×3 (05:48→20:56)
[2020-08-18] MEDS: DAPTOmycin 700 MG in SYRINGE 0 ML IV SCH (05:49)
[2020-08-18] MEDS: NovoLOG INSULIN PUMP SCH ×4 (08:40→20:55)
[2020-08-18] MEDS: POTASSIUM CHLORIDE CRTAB 20 MEQ TABCR PO SCH ×3 (08:41→20:45)
[2020-08-18] MEDS: METOPROLOL SUCC 25MG EXT REL TAB PO SCH ×2 (08:41→20:44)
[2020-08-18] MEDS: HYOSCYAMINE SULFATE 0.125 MG TAB PO SCH ×3 (08:41→20:45)
[2020-08-18] MEDS: ASPIRIN 81 MG ECTAB PO SCH (08:42)
[2020-08-18] MEDS: MAGNESIUM OXIDE 400 MG TAB PO SCH (08:42)
[2020-08-18] MEDS: PANTOprazole 40 MG TAB PO SCH (08:42)
[2020-08-18] MEDS: FUROSEMIDE 80 MG in SYRINGE 0 ML IV SCH ×3 (08:43→20:44)
[2020-08-18] MEDS: FLUTICASONE/VILANTEROL 200/25MCG 14 PUFFS/INHALER INH SCH (08:43)
[2020-08-18] MEDS: FLUTICASONE PROPIONATE NA SPR 16 GM BTL SCH ×2 (08:43→20:44)
[2020-08-18 08:50] LABS: Hematocrit (blood only) 33.7 % (42-52); Hemoglobin 10.5 g/dL (14.0-18.0); Mean Corpuscular Hemoglobin 27.2 pg (25-34); Mean Corpuscular Hgb Conc 31.2 g/dL (32-36); Mean Corpuscular Volume 87.3 fL (80-100); Mean Platelet Volume 8.9 fL (7.4-10.4); Platelet Count 476 K/uL (130-400); RDW Coefficient of Variation 19.4 % (11.5-14.5); RDW Standard Deviation 61.6 fL (36.4-46.3); Red Blood Count 3.86 M/uL (4.7-6.1); White Blood Count 10.85 K/uL (4.8-10.8)
[2020-08-18 09:01] LABS: INR 3.4 (0.9-1.1); Prothrombin Time 31.6 Seconds (9.0-12.0)
[2020-08-18 09:17] LABS: BUN Creatinine Ratio 11.1 (10-20); C Reactive Protein 9.15 mg/dl (0-0.29); Calcium 8.6 mg/dl (8.5-10.1); Creatinine Clr Calc Pharmacy 128.6 ml/min; Est GFR (African American) 93.7; Est GFR (Non-African American) 80.8; Magnesium 1.8 mg/dl (1.8-2.4); Potassium 3.4 mmol/L (3.5-5.1)
--- NOTE | 2020-08-18 11:11 | Pharmacy Report ---
Pharmacy Glycemic Sign Off Nt - Date of Service August 18, 2020 - Assessment & Plan ASSESSMENT: * Pharmacy was consulted by Lora Moise PA-C on 08/15/20 for glycemic control and to write orders per [facility] inpatient glycemic control protocol. * Major changes made by pharmacy to antidiabetic regimen include: * None - patient was kept on his outpatient insulin pump * Patient has been receiving his insulin pump per outpatient settings for adequate glycemic control * BSGs ranging 104 - 178 mg/dl * Regimen has not required any changes * Do not anticipate further changes in patient status that would quickly deteriorate glycemic control (i.e. patient to be NPO for upcoming procedure, steroids tapering, starting tube feedings, etc). * Please see recommendations for outpatient antidiabetic regimen below. PLAN FOR INPATIENT GLYCEMIC CONTROL: No changes needed to current regimen. * Continue with outpatient insulin pump and current settings * Pharmacy is signing off of glycemic consult and will no longer be making adjustments to inpatient regimen. Please feel free to re-consult if needed. Thank you. DISCHARGE RECOMMENDATIONS: * A1c 7.6% on 07/13/20. Continue outpatient insulin pump upon discharge.
[2020-08-18] MEDS: oxyCODONE HCL IR 5 MG TAB (IMMEDIATE RELEASE) PO PRN ×2 (11:15→21:19)
[2020-08-18] MEDS: GABAPENTIN 300 MG CAP PO SCH ×3 (11:16→20:44)
[2020-08-18] MEDS: SPIRONOLACTONE 25 MG TAB PO SCH (11:16)
--- NOTE | 2020-08-18 13:57 | Cardiology Progress Note ---
Date of Service August 18, 2020 Assessment & Plan (1) Acute on chronic combined systolic (congestive) and diastolic (congestive) heart failure: Patient is a complex 54-year-old male with underlying history as outlined above and below noting history of ischemic cardiomyopathy with at least moderate LV dysfunction. Echocardiogram today demonstrates focal apical wall motion abnormality on limited views with grossly normal LV systolic function. Patient admitted with lower extremity edema and cellulitis. Exam consistent with right heart failure and anasarca. Chest x-ray concerning for post Covid pneumonitis with diffuse infiltrates likely aggravating above. In serial review of x-rays he has had progressive infiltrates superimposed on mild chronic congestive heart failure since 07/18/2020 Recommendations: Patient slowly responding to ongoing diuretic therapy. Recommend continuing current diuretics. Strict I's and O's and daily weights on the same scale. Patient previously on metolazone would not add until potassium stabilized Begin with metoprolol 25 mg twice per day with likely need for upward titration. Prior dosing 100 mg twice per day in April 2020 Continue CPAP and oxygen supplementation with careful following of pulmonary status with significant post Covid pneumonitis present (2) Pneumonia due to COVID-19 virus: Significant post Covid pneumonitis on chest x-ray with patient at risk for further ongoing progression (3) Right heart failure (secondary to left heart failure): (4) Morbid obesity: (5) S/P ICD (internal cardiac defibrillator) procedure: (6) Sustained ventricular tachycardia: Patient with prior VT ablation previously stable on beta-noy until recent illness. Will discontinue amiodarone due to contraindications to use gradually upward titrate beta-noy Admission and Anticipated Discharge Date Admission Date: August 15, 2020 Subjective Patient seen and examined out of bed in chair, chart reviewed. Patient states he is feeling slightly better today mainly noticing decreased lower extremity edema. States that breathing is not significantly improved as of yet. Denies chest pain, palpitations, lightheadedness or dizziness. Telemetry reviewed: Sinus rhythm without significant arrhythmias. Review of Systems Review of Systems: All systems reviewed & are unremarkable except as noted in HPI & below Physical Exam Physical Exam: General: Awake, alert and oriented x 3. Mild conversational dyspnea HEENT: Normocephalic, atraumatic. Pupils equal, round and reactive to light and accommodation. Extraocular muscles are intact. Anicteric sclera. Moist mucous membranes. Neck: No JVD. No bruit. Cardiovascular: Regular. Positive S-4. Normal S-1 and S-2. No S-3. 3/6 holosystolic ejection murmur, 5th intercostal space, mid-clavicular line without radiation. No rubs. Pulmonary: Clear to auscultation bilaterally. No rales, rhonchi, or wheezing. Abdomen: Bowel sounds x 4, soft. No rebound, guarding or tenderness. No organomegaly. Extremities: Very large and edematous bilaterally with significant chronic venous stasis changes and left lower extremity wound bandaged. Skin: Warm and dry. Results & Data ([facility]) Vital Signs (Past 12 Hours) Vital Signs Temp Pulse Pulse Pulse Resp BP Pulse Ox 08/18/20 12:00 37.1 C 86 18 122/72 95 08/18/20 07:31 86 08/18/20 07:30 37.2 C 84 22 102/65 94 08/18/20 03:31 36.9 C 80 20 143/66 H 96
[2020-08-18] MEDS ORDERED: POTASSIUM CHLORIDE CRTAB 20 MEQ TABCR PO SCH (14:00)
--- NOTE | 2020-08-18 19:50 | Hospitalist Progress Note ---
Date of Service August 18, 2020 Assessment & Plan (1) Hypoxia: (2) Acute on chronic combined systolic (congestive) and diastolic (congestive) heart failure: Patient is a 54 yr male with H/O Chronic systolic and diastolic CHF, ischemic cardiomyopathy, CAD, history of SVT, AICD placement October 2019, PAF anticoagulated on warfarin, history of DVT on warfarin, HTN, HLD, CKD stage III baseline 1.5-1.7, NINA on BiPAP, asthma, insulin-dependent T2DM, diabetic peripheral neuropathy, hypothyroidism, chronic left nonhealing diabetic foot wound who presents to ED secondary to worsening shortness of breath and hypoxia for 2 to 3 days. Patient reports to orthopnea and paroxysmal nocturnal dyspnea on admission. Acute on chronic respiratory failure with hypoxia Likely Multifactorial Acute on chronic systolic/diastolic heart failure Recent extensive COVID pneumonitis could be contributing as well CTA:No evidence for pulmonary embolus. Extensive patchy bilateral airspace opacities consistent with a viral pneumonia. Trace right pleural effusion. ECHO limited due to technical difficulties. Reviewed Continue IV Lasix 80 mg 3 times daily Added spironolactone Appreciate cardiology input Discontinued amiodarone given pulmonary infiltrate Continue supplemental oxygen, CPAP as needed Monitor I's and O's, daily weight, renal function, electrolytes Legs edema slowly improving Continue diuresis (3) Hypokalemia: secondary to diuresis Replace as needed (4) Diabetic ulcer of left foot: (5) Traumatic open wound of left lower leg: S/P Exploration and debridement with placement antibiotic beads of left foot wound on 08/03/[address] Bates As per ID Input pat to complete IV daptomycin and Zosyn for a total of 6 weeks Continue wound care (6) Pneumonia due to COVID-19 virus: Diagnosed with COVID-19 on 07/12 with development of viral pneumonia Completed IV dexamethasone and remdesivir course CTA as above Continue supportive care, supplemental oxygen Discussed with Pulmonology Normal procalcitonin (7) Ischemic cardiomyopathy: (8) CAD (coronary artery disease): (9) Hypertension: CAD Continue ASA, Metprolol Statin on hold while on Dapto (10) S/P ICD (internal cardiac defibrillator) procedure: H/O SVT S/P ICD placement in October 2019 Amiodarone discontinued secondary to pulmonary issues Restarted metoprolol (11) Atrial fibrillation: Amiodarone DCed as above Continue metoprolol--needs up titration Supratherapeutic INR INR:3.8>3.4 Hold Coumadin today (12) Dyslipidemia: Hold statin while on daptomycin (13) Diabetes type 2, uncontrolled: HbA1c 7.6 On insulin pump consult glycemic pharmacy (14) CKD (chronic kidney disease) stage 3, GFR 30-59 ml/min: Baseline creatinine 1.2-1.3 Monitor renal function (15) Diabetic peripheral neuropathy associated with type 2 diabetes mellitus: continue gabapentin (16) NINA on CPAP: Bipap at HS (17) Hypothyroidism: Elevated Free T4, low TSH levothyroxine decreased to 88mcg Needs repeat thyroid function test in 4-6 weeks (18) DVT prophylaxis: Supratherapeutic INR Hold Coumadin for now CODE STATUS Full code Admission and Anticipated Discharge Date Admission Date: August 15, 2020 Subjective Reports Patient is seen and examined at bedside Leg swelling slowly improving Dyspnea on exertion but otherwise improving Has chronic cough Denies chest pain, dizziness, nausea, abdominal pain "My ears are plugged" Review of Systems Review of Systems: All systems reviewed & are unremarkable except as noted in HPI & below Physical Exam Physical Exam: Physical Exam: Vitals signs as noted above General Appearance:Morbidly Obese, no apparent distress Head: normocephalic, Atraumatic Eyes: normal inspection, EOMI Neck: supple, Trachea midline Respiratory/Chest: Decreased breath sounds, scattered crackles Cardiovascular: S1, S2, No murmur Abdomen/GI:Soft, Non tender, Bowel sounds present Extremities/Musculoskeletal:normal inspection, B/L LE edema, Venous stasis changes, R foot in dressing Neurologic/Psych:AAOX3, grossly no focal neurological deficits Skin: normal color, warm Results & Data Results & Data ([facility]) Vital Signs (Past 12 Hours) Vital Signs Temp Pulse Pulse Resp BP Pulse Ox 08/18/20 19:00 36.8 C 80 20 117/68 96 08/18/20 16:00 36.6 C 84 18 135/76 96 08/18/20 15:00 80 08/18/20 12:00 37.1 C 86 18 122/72 95 Laboratory Results Short CBC 08/18/20 Range/Units 08:33 WBC 10.85 H (4.8-10.8) K/uL Hgb 10.5 L (14.0-18.0) g/dL Hct 33.7 L (42-52) % Plt Count 476 H (130-400) K/uL BMP 08/18/20 08:33 Sodium 139 Potassium 3.4 L Chloride 105 Carbon Dioxide 30 BUN 11 Creatinine 1.03 Glucose 146 H Calcium 8.6
[2020-08-18] MEDS: CARBAMIDE PEROXIDE 6.5% 15 ML BTL OT SCH (20:44)
[2020-08-19] MEDS: CLOBETASOL SCH ×4 (00:16→22:13)
[2020-08-19] MEDS: PIPERACILLIN/TAZOBACTAM 4.5 GM in DEXTROSE 5% 100 ML IV SCH ×3 (05:40→21:12)
[2020-08-19] MEDS: DAPTOmycin 700 MG in SYRINGE 0 ML IV SCH (05:40)
[2020-08-19] MEDS: LEVOTHYROXINE SODIUM 88 MCG TABLET PO SCH (05:40)
[2020-08-19 07:45] LABS: INR 3.5 (0.9-1.1); Prothrombin Time 31.9 Seconds (9.0-12.0)
[2020-08-19 07:50] LABS: BUN Creatinine Ratio 10.7 (10-20); Calcium 9.2 mg/dl (8.5-10.1); Creatinine Clr Calc Pharmacy 124.8 ml/min; Est GFR (African American) 90.5; Est GFR (Non-African American) 78.1; Magnesium 1.9 mg/dl (1.8-2.4); Potassium 3.7 mmol/L (3.5-5.1)
[2020-08-19] MEDS: NovoLOG INSULIN PUMP SCH ×4 (08:09→21:43)
[2020-08-19] MEDS: FUROSEMIDE 80 MG in SYRINGE 0 ML IV SCH ×3 (08:12→21:13)
[2020-08-19] MEDS: CARBAMIDE PEROXIDE 6.5% 15 ML BTL OT SCH ×2 (08:13→21:12)
[2020-08-19] MEDS: HYOSCYAMINE SULFATE 0.125 MG TAB PO SCH ×3 (08:13→21:13)
[2020-08-19] MEDS: FLUTICASONE PROPIONATE NA SPR 16 GM BTL SCH ×2 (08:13→21:12)
[2020-08-19] MEDS: FLUTICASONE/VILANTEROL 200/25MCG 14 PUFFS/INHALER INH SCH (08:13)
[2020-08-19] MEDS: SPIRONOLACTONE 25 MG TAB PO SCH (08:14)
[2020-08-19] MEDS: PANTOprazole 40 MG TAB PO SCH (08:14)
[2020-08-19] MEDS: ASPIRIN 81 MG ECTAB PO SCH (08:14)
[2020-08-19] MEDS: POTASSIUM CHLORIDE CRTAB 20 MEQ TABCR PO SCH ×2 (08:15→21:14)
[2020-08-19] MEDS: METOPROLOL SUCC 25MG EXT REL TAB PO SCH (08:15)
[2020-08-19] MEDS: MAGNESIUM OXIDE 400 MG TAB PO SCH (08:16)
[2020-08-19] MEDS: GABAPENTIN 300 MG CAP PO SCH ×3 (08:17→21:13)
[2020-08-19] MEDS: oxyCODONE HCL IR 5 MG TAB (IMMEDIATE RELEASE) PO PRN (08:21)
[2020-08-19] MEDS ORDERED: PHARMACY GLYCEMIC MGMT CONSULT PRN (11:15)
--- NOTE | 2020-08-19 12:16 | Pharmacy Report ---
Pharmacy Glycemic Short Note 2 - Date of Service August 19, 2020 - Glycemic Short BSG Results (Last 24 hours): 08/18/20 08/18/20 08/18/20 15:50 16:09 20:51 Glucose POC Glucose 67 L* 83 177 H 08/19/20 08/19/20 08/19/20 06:49 07:07 11:05 Glucose 162 H POC Glucose 169 H 404 H* 08/19/20 11:07 Glucose POC Glucose 381 H* OUTPATIENT ANTIDIABETIC REGIMEN: * Novolog pump: - Basal rate 2 units/hr - CF/CR: 13/09 ASSESSMENT: 08/19: * Pharmacy reconsulted for isolated incident of hyperglycemia at lunch today as BSG was 404 mg/dL with recheck of 381 mg/dL * Spoke with RN, no snacking noted. Patient unsure why BSG so high. * No changes continue pump 08/17 * BSGs well controlled over last 48 hrs - continue with insulin pump for now 08/15 * 54 yo T2DM male well known to the pharmacy glycemic service from recent hospital admissions. * He is currently admitted for CHF exacerbation. His most recent admission was for Cellulitis/ Osteo. He was started on Daptomycin + Zosyn for this and continued for 6 weeks. * He is maintained on a Novolog insulin pump as an outpatient. Hospitalist prefers to continue patient on home insulin pump while admitted if possible. * Spoke to patient today. He said he is fine with managing his pump. His basal rate is 2 units/hr. He said his settings for carb coverage has not changed from his recent admission. PLAN FOR INPATIENT GLYCEMIC CONTROL: Pt is to manage BSGs with insulin pump per outpatient settings. * Pharmacy will periodically check in with patient to assess glycemic control and address patient / nursing concerns * Patient to document BSGs and insulin doses on [id number] Flowsheet * Staff is to perform daily morning BSG to verify accuracy of CGM data. The deviation of the patients CGM value from the hospital BSG value must be less than 20%. A deviation above 20% will result in disqualification of the patient from using CGM and nursing staff will assume testing for the remainder of the day with hospital meter. It is recommended that the hospital glucose meter be used for before meal and bedtime blood glucose checks, to ensure accurate insulin dosing and to make blood glucose levels available to providers. Otherwise the patient must self-monitor blood glucose at least before meals and bedtime. If the patient becomes unable or unwilling to test at this frequency, nursing staff will assume BSG testing at the same frequency ordered by the provider If at any time the patients condition evidences that he/she is not able to manage the insulin pump (i.e. frequent hypo/hyperglycemia) Pharmacy will assume glycemic control by discontinuing the pump & managing with SQ basal bolus insulin regimen for the interim. PLAN FOR DISCHARGE: * Patient to continue insulin pump self-management, should have f/u with outpatient provider for adjustments for optimal outpatient control.
--- NOTE | 2020-08-19 12:35 | Cardiology Progress Note ---
Date of Service August 19, 2020 Assessment & Plan (1) Acute on chronic combined systolic (congestive) and diastolic (congestive) heart failure: Patient is a complex 54-year-old male with underlying history as outlined above and below noting history of ischemic cardiomyopathy with at least moderate LV dysfunction. Echocardiogram today demonstrates focal apical wall motion abnormality on limited views with grossly normal LV systolic function. Patient admitted with lower extremity edema and cellulitis. Exam consistent with right heart failure and anasarca. Chest x-ray concerning for post Covid pneumonitis with diffuse infiltrates likely aggravating above. In serial review of x-rays he has had progressive infiltrates superimposed on mild chronic congestive heart failure since 07/18/2020 Recommendations: Patient slowly responding to ongoing diuretic therapy. Recommend continuing current diuretics. Strict I's and O's and daily weights on the same scale. Patient previously on metolazone would not add until potassium stabilized Continue spironolactone. We will update treat metoprolol succinate to 50 mg twice daily now and continue to follow. Anticipate extended stay for profound volume overload and need for contin ued diuresis. Continue CPAP and oxygen supplementation with careful following of pulmonary status with significant post Covid pneumonitis present (2) Pneumonia due to COVID-19 virus: Significant post Covid pneumonitis on chest x-ray with patient at risk for further ongoing progression (3) Right heart failure (secondary to left heart failure): (4) Morbid obesity: (5) S/P ICD (internal cardiac defibrillator) procedure: (6) Sustained ventricular tachycardia: Patient with prior VT ablation previously stable on beta-noy until recent illness. Will discontinue amiodarone due to contraindications to use gradually upward titrate beta-noy Admission and Anticipated Discharge Date Admission Date: August 15, 2020 Subjective Patient seen and examined, chart reviewed. Out of bed in chair. States he feels about the same as yesterday without significant improvement of his breathing. Does note mild improvement of his lower extremity edema. Continues to deny chest pain, palpitations or lightheadedness. Telemetry reviewed: Normal sinus rhythm without arrhythmia. Review of Systems Review of Systems: All systems reviewed & are unremarkable except as noted in HPI & below Physical Exam Physical Exam: General: Awake, alert and oriented x 3. Mild conversational dyspnea HEENT: Normocephalic, atraumatic. Pupils equal, round and reactive to light and accommodation. Extraocular muscles are intact. Anicteric sclera. Moist mucous membranes. Neck: No JVD. No bruit. Cardiovascular: Regular. Positive S-4. Normal S-1 and S-2. No S-3. 3/6 holosystolic ejection murmur, 5th intercostal space, mid-clavicular line without radiation. No rubs. Pulmonary: Clear to auscultation bilaterally. No rales, rhonchi, or wheezing. Abdomen: Bowel sounds x 4, soft. No rebound, guarding or tenderness. No organomegaly. Extremities: Very large and edematous bilaterally with significant chronic venous stasis changes and left lower extremity wound bandaged. Skin: Warm and dry. Results & Data ([facility] [place]) Vital Signs (Past 12 Hours) Vital Signs Temp Pulse Resp BP Pulse Ox 08/19/20 11:58 36.6 C 88 18 165/94 H 96 08/19/20 08:01 36.6 C 91 H 19 134/62 92 08/19/20 04:41 36.7 C 85 20 128/67 94
--- NOTE | 2020-08-19 19:06 | Hospitalist Progress Note ---
Date of Service August 19, 2020 Assessment & Plan (1) Hypoxia: (2) Acute on chronic combined systolic (congestive) and diastolic (congestive) heart failure: Patient is a 54 yr male with H/O Chronic systolic and diastolic CHF, ischemic cardiomyopathy, CAD, history of SVT, AICD placement October 2019, PAF anticoagulated on warfarin, history of DVT on warfarin, HTN, HLD, CKD stage III baseline 1.5-1.7, NINA on BiPAP, asthma, insulin-dependent T2DM, diabetic peripheral neuropathy, hypothyroidism, chronic left nonhealing diabetic foot wound who presents to ED secondary to worsening shortness of breath and hypoxia for 2 to 3 days. Patient reports to orthopnea and paroxysmal nocturnal dyspnea on admission. Acute on chronic respiratory failure with hypoxia Likely Multifactorial Acute on chronic systolic/diastolic heart failure Recent extensive COVID pneumonitis could be contributing as well CTA:No evidence for pulmonary embolus. Extensive patchy bilateral airspace opacities consistent with a viral pneumonia. Trace right pleural effusion. ECHO limited due to technical difficulties. Reviewed Continue IV Lasix 80 mg 3 times daily Added spironolactone Appreciate cardiology input Discontinued amiodarone given pulmonary infiltrate Continue supplemental oxygen, CPAP as needed Monitor I's and O's, daily weight, renal function, electrolytes Continue IV diuresis Continue current management (3) Hypokalemia: secondary to diuresis Replace as needed (4) Diabetic ulcer of left foot: (5) Traumatic open wound of left lower leg: S/P Exploration and debridement with placement antibiotic beads of left foot wound on 08/03/[address] Bates As per ID Input pat to complete IV daptomycin and Zosyn for a total of 6 weeks Continue wound care (6) Pneumonia due to COVID-19 virus: Diagnosed with COVID-19 on 07/12 with development of viral pneumonia Completed IV dexamethasone and remdesivir course CTA as above Continue supportive care, supplemental oxygen Discussed with Pulmonology Normal procalcitonin (7) Ischemic cardiomyopathy: (8) CAD (coronary artery disease): (9) Hypertension: CAD Continue ASA, Metprolol Statin on hold while on Dapto (10) S/P ICD (internal cardiac defibrillator) procedure: H/O SVT S/P ICD placement in October 2019 Amiodarone discontinued secondary to pulmonary issues Metoprolol increased to 50 mg twice daily (11) Atrial fibrillation: Amiodarone DCed as above Continue metoprolol--needs up titration Supratherapeutic INR INR:3.8>3.4>3.5 Hold Coumadin today (12) Dyslipidemia: Hold statin while on daptomycin (13) Diabetes type 2, uncontrolled: HbA1c 7.6 On insulin pump consult glycemic pharmacy (14) CKD (chronic kidney disease) stage 3, GFR 30-59 ml/min: Baseline creatinine 1.2-1.3 Monitor renal function Cr:1.06 (15) Diabetic peripheral neuropathy associated with type 2 diabetes mellitus: continue gabapentin (16) NINA on CPAP: Bipap at HS (17) Hypothyroidism: Elevated Free T4, low TSH levothyroxine decreased to 88mcg Needs repeat thyroid function test in 4-6 weeks (18) DVT prophylaxis: Supratherapeutic INR Hold Coumadin for now CODE STATUS Full code Admission and Anticipated Discharge Date Admission Date: August 15, 2020 Subjective Patient is seen and examined at bedside Subjectively feels better today No new complaints Still has significant lower extremity edema Has dyspnea on exertion chronic cough Denies chest pain, dizziness, nausea, abdominal pain Review of Systems Review of Systems: All systems reviewed & are unremarkable except as noted in HPI & below Physical Exam Physical Exam: Physical Exam: Vitals signs as noted above General Appearance:Morbidly Obese, no apparent distress Head: normocephalic, Atraumatic Eyes: normal inspection, EOMI Neck: supple, Trachea midline Respiratory/Chest: Decreased breath sounds, CTA Cardiovascular: S1, S2, No murmur Abdomen/GI:Soft, Non tender, Bowel sounds present Extremities/Musculoskeletal:normal inspection, B/L LE edema, Venous stasis changes, R foot in dressing Neurologic/Psych:AAOX3, grossly no focal neurological deficits Skin: normal color, warm Results & Data Results & Data ([facility]) Vital Signs (Past 12 Hours) Vital Signs Temp Pulse Resp BP Pulse Ox 08/19/20 16:28 36.8 C 79 18 142/75 H 97 08/19/20 11:58 36.6 C 88 18 165/94 H 96 08/19/20 08:01 36.6 C 91 H 19 134/62 92 Laboratory Results [facility] 08/19/20 07:07 Sodium 137 Potassium 3.7 Chloride 103 Carbon Dioxide 29 BUN 11 Creatinine 1.06 Glucose 162 H Calcium 9.2
[2020-08-19] MEDS: METOPROLOL SUCC 50MG EXT REL TAB PO SCH (21:15)
[2020-08-20] MEDS: traMADol HCL 50 MG TABLET PO PRN (01:21)
[2020-08-20] MEDS: LEVOTHYROXINE SODIUM 88 MCG TABLET PO SCH (05:50)
[2020-08-20] MEDS: PIPERACILLIN/TAZOBACTAM 4.5 GM in DEXTROSE 5% 100 ML IV SCH ×3 (05:50→22:07)
[2020-08-20] MEDS: oxyCODONE HCL IR 5 MG TAB (IMMEDIATE RELEASE) PO PRN ×2 (05:55→21:29)
[2020-08-20 08:05] LABS: INR 2.7 (0.9-1.1); Prothrombin Time 25.7 Seconds (9.0-12.0)
[2020-08-20 08:11] LABS: BUN Creatinine Ratio 12.5 (10-20); Calcium 9.5 mg/dl (8.5-10.1); Creatinine Clr Calc Pharmacy 123.6 ml/min; Est GFR (African American) 89.5; Est GFR (Non-African American) 77.2; Potassium 3.7 mmol/L (3.5-5.1)
[2020-08-20] MEDS: SPIRONOLACTONE 25 MG TAB PO SCH (08:59)
[2020-08-20] MEDS: MAGNESIUM OXIDE 400 MG TAB PO SCH (08:59)
[2020-08-20] MEDS: ASPIRIN 81 MG ECTAB PO SCH (08:59)
[2020-08-20] MEDS: METOPROLOL SUCC 50MG EXT REL TAB PO SCH ×2 (08:59→21:12)
[2020-08-20] MEDS: FUROSEMIDE 80 MG in SYRINGE 0 ML IV SCH (09:00)
[2020-08-20] MEDS: HYOSCYAMINE SULFATE 0.125 MG TAB PO SCH ×3 (09:00→21:12)
[2020-08-20] MEDS: GABAPENTIN 300 MG CAP PO SCH ×3 (09:00→21:12)
[2020-08-20] MEDS: PANTOprazole 40 MG TAB PO SCH (09:01)
[2020-08-20] MEDS: CLOBETASOL SCH ×3 (09:01→22:17)
[2020-08-20] MEDS: FLUTICASONE PROPIONATE NA SPR 16 GM BTL SCH ×2 (09:01→21:09)
[2020-08-20] MEDS: CARBAMIDE PEROXIDE 6.5% 15 ML BTL OT SCH ×2 (09:02→21:09)
[2020-08-20] MEDS: FLUTICASONE/VILANTEROL 200/25MCG 14 PUFFS/INHALER INH SCH (09:03)
[2020-08-20] MEDS: POTASSIUM CHLORIDE CRTAB 20 MEQ TABCR PO SCH ×2 (09:03→21:12)
[2020-08-20] MEDS: DAPTOmycin 700 MG in SYRINGE 0 ML IV SCH (09:09)
[2020-08-20] MEDS: NovoLOG INSULIN PUMP SCH ×4 (10:16→22:07)
--- NOTE | 2020-08-20 13:37 | Hospitalist Progress Note ---
Date of Service August 20, 2020 Assessment & Plan (1) Hypoxia: (2) Acute on chronic combined systolic (congestive) and diastolic (congestive) heart failure: Patient is a 54 yr male with H/O Chronic systolic and diastolic CHF, ischemic cardiomyopathy, CAD, history of SVT, AICD placement October 2019, PAF anticoagulated on warfarin, history of DVT on warfarin, HTN, HLD, CKD stage III baseline 1.5-1.7, NINA on BiPAP, asthma, insulin-dependent T2DM, diabetic peripheral neuropathy, hypothyroidism, chronic left nonhealing diabetic foot wound who presents to ED secondary to worsening shortness of breath and hypoxia for 2 to 3 days. Patient reports to orthopnea and paroxysmal nocturnal dyspnea on admission. Acute on chronic respiratory failure with hypoxia Likely Multifactorial Acute on chronic systolic/diastolic heart failure Recent extensive COVID pneumonitis could be contributing as well CTA:No evidence for pulmonary embolus. Extensive patchy bilateral airspace opacities consistent with a viral pneumonia. Trace right pleural effusion. ECHO limited due to technical difficulties. Reviewed Appreciate cardiology input. Continue IV Lasix 60 mg 3 times daily along with his spironolactone. Continue to monitor ins and outs along with daily weights. (3) Hypokalemia: secondary to diuresis Replace as needed (4) Diabetic ulcer of left foot: (5) Traumatic open wound of left lower leg: S/P Exploration and debridement with placement antibiotic beads of left foot wound on 08/03/[address] Bates As per ID Input pat to complete IV daptomycin and Zosyn for a total of 6 weeks Continue wound care (6) Pneumonia due to COVID-19 virus: Diagnosed with COVID-19 on 07/12 with development of viral pneumonia Completed IV dexamethasone and remdesivir course CTA as above Continue supportive care, supplemental oxygen Discussed with Pulmonology Normal procalcitonin (7) Ischemic cardiomyopathy: (8) CAD (coronary artery disease): (9) Hypertension: CAD Continue ASA, Metprolol Statin on hold while on Dapto (10) S/P ICD (internal cardiac defibrillator) procedure: H/O SVT S/P ICD placement in October 2019 Amiodarone discontinued secondary to pulmonary issues Metoprolol increased to 50 mg twice daily (11) Atrial fibrillation: Amiodarone DCed as above Continue metoprolol--needs up titration Supratherapeutic INR INR:3.8>3.4>3.5>>>2.7 Hold Coumadin today (12) Dyslipidemia: Hold statin while on daptomycin (13) Diabetes type 2, uncontrolled: HbA1c 7.6 On insulin pump consult glycemic pharmacy (14) CKD (chronic kidney disease) stage 3, GFR 30-59 ml/min: Baseline creatinine 1.2-1.3 Monitor renal function Cr:1.07 (15) Diabetic peripheral neuropathy associated with type 2 diabetes mellitus: continue gabapentin (16) NINA on CPAP: Bipap at HS (17) Hypothyroidism: Elevated Free T4, low TSH levothyroxine decreased to 88mcg Needs repeat thyroid function test in 4-6 weeks (18) DVT prophylaxis: Supratherapeutic INR Hold Coumadin for now CODE STATUS Full code Admission and Anticipated Discharge Date Admission Date: August 15, 2020 Subjective Patient comfortably in the recliner today. Currently on 2 L of nasal cannula. Reports shortness of breath is about the same. Continues to have minimal nonproductive cough. Denies any chest pain. Denies any palpitations or any dizziness. Denies any abdominal pain, diarrhea or dysuria. Review of Systems Review of Systems: All systems reviewed & are unremarkable except as noted in HPI & below Physical Exam Physical Exam: General: A&Ox3 HENT: NCAT, MMM, EOMI Eyes: PERRLA Neck: Supple, normal range of motion CVS: normal rate and rhythm Resp: b/l decreased breath sounds secondary to body habitus Abdomen: Soft, ND/NT Extremities: Chronic venous stasis skin changes, left lower dressings intact Neuro: face symmetric, no focal deficit MSK: no joint swelling/erythema Results & Data Results & Data ([facility]) Vital Signs (Past 12 Hours) Vital Signs Temp Pulse Resp BP Pulse Ox 08/20/20 11:12 36.7 C 77 18 156/94 H 97 08/20/20 08:25 36.5 C 81 18 134/79 95 08/20/20 03:40 37.1 C 74 18 125/74 98
--- NOTE | 2020-08-20 13:45 | Cardiology Progress Note ---
Date of Service August 20, 2020 Assessment & Plan (1) Acute on chronic combined systolic (congestive) and diastolic (congestive) heart failure: Patient is a complex 54-year-old male with underlying history as outlined above and below noting history of ischemic cardiomyopathy with at least moderate LV dysfunction. Echocardiogram today demonstrates focal apical wall motion abnormality on limited views with grossly normal LV systolic function. Patient admitted with lower extremity edema and cellulitis. Exam consistent with right heart failure and anasarca. Chest x-ray concerning for post Covid pneumonitis with diffuse infiltrates likely aggravating above. In serial review of x-rays he has had progressive infiltrates superimposed on mild chronic congestive heart failure since 07/18/2020 Recommendations: Patient slowly responding to ongoing diuretic therapy. We will change diuretics to Lasix 60 mg IV every 8 hours. Strict I's and O's and daily weights on the same scale. Patient previously on metolazone would not add until potassium stabilized Continue spironolactone. Tolerating increased dose of metoprolol without issue. Anticipate extended stay for profound volume overload and need for continued diuresis. (2) Pneumonia due to COVID-19 virus: Significant post Covid pneumonitis on chest x-ray with patient at risk for further ongoing progression (3) Right heart failure (secondary to left heart failure): (4) Morbid obesity: (5) S/P ICD (internal cardiac defibrillator) procedure: (6) Sustained ventricular tachycardia: Patient with prior VT ablation previously stable on beta-noy until recent illness. Will discontinue amiodarone due to contraindications to use gradually upward titrate beta-noy Admission and Anticipated Discharge Date Admission Date: August 15, 2020 Subjective Patient seen and examined, chart reviewed. Continues to diurese well but denies any improvement in symptoms. States no improvement in breathing from admission despite visually breathing easier. Telemetry reviewed: Normal sinus rhythm without arrhythmia. Review of Systems Review of Systems: All systems reviewed & are unremarkable except as noted in HPI & below Physical Exam Physical Exam: General: Awake, alert and oriented x 3. Mild conversational dyspnea HEENT: Normocephalic, atraumatic. Pupils equal, round and reactive to light and accommodation. Extraocular muscles are intact. Anicteric sclera. Moist mucous membranes. Neck: No JVD. No bruit. Cardiovascular: Regular. Positive S-4. Normal S-1 and S-2. No S-3. 3/6 holosystolic ejection murmur, 5th intercostal space, mid-clavicular line without radiation. No rubs. Pulmonary: Clear to auscultation bilaterally. No rales, rhonchi, or wheezing. Abdomen: Bowel sounds x 4, soft. No rebound, guarding or tenderness. No organomegaly. Extremities: Very large and edematous bilaterally with significant chronic venous stasis changes and left lower extremity wound bandaged. Skin: Warm and dry. Results & Data ([facility]) Vital Signs (Past 12 Hours) Vital Signs Temp Pulse Resp BP Pulse Ox 08/20/20 11:12 36.7 C 77 18 156/94 H 97 08/20/20 08:25 36.5 C 81 18 134/79 95 08/20/20 03:40 37.1 C 74 18 125/74 98
[2020-08-20] MEDS: FUROSEMIDE 60 MG in SYRINGE 0 ML IV SCH ×2 (14:32→22:07)
[2020-08-21] MEDS: MoRPHine SULFATE 4 MG/ML 1 ML CARP\\VIAL IV PRN (00:37)
[2020-08-21] MEDS: oxyCODONE HCL IR 5 MG TAB (IMMEDIATE RELEASE) PO PRN ×3 (02:08→20:54)
[2020-08-21] MEDS: PIPERACILLIN/TAZOBACTAM 4.5 GM in DEXTROSE 5% 100 ML IV SCH ×2 (06:06→19:57)
[2020-08-21] MEDS: LEVOTHYROXINE SODIUM 88 MCG TABLET PO SCH (06:06)
[2020-08-21 06:30] LABS: INR 2.4 (0.9-1.1); Prothrombin Time 22.4 Seconds (9.0-12.0)
[2020-08-21 06:42] LABS: BUN Creatinine Ratio 14.7 (10-20); Calcium 8.9 mg/dl (8.5-10.1); Creatinine Clr Calc Pharmacy 117.2 ml/min; Est GFR (African American) 83.8; Est GFR (Non-African American) 72.3
[2020-08-21] MEDS: DAPTOmycin 700 MG in SYRINGE 0 ML IV SCH ×2 (07:00→11:37)
[2020-08-21] MEDS ORDERED: ALTEPLASE, RECOMBINANT 1 MG/ML 2ML VIAL INSTIL ONE (07:50)
[2020-08-21] MEDS: NovoLOG INSULIN PUMP SCH ×4 (08:11→20:59)
[2020-08-21] MEDS: traMADol HCL 50 MG TABLET PO PRN (08:21)
[2020-08-21] MEDS: FLUTICASONE/VILANTEROL 200/25MCG 14 PUFFS/INHALER INH SCH (08:22)
[2020-08-21] MEDS: FLUTICASONE PROPIONATE NA SPR 16 GM BTL SCH ×2 (08:22→20:56)
[2020-08-21] MEDS: MAGNESIUM OXIDE 400 MG TAB PO SCH (08:23)
[2020-08-21] MEDS: HYOSCYAMINE SULFATE 0.125 MG TAB PO SCH ×3 (08:23→20:56)
[2020-08-21] MEDS: ASPIRIN 81 MG ECTAB PO SCH (08:23)
[2020-08-21] MEDS: SPIRONOLACTONE 25 MG TAB PO SCH (08:23)
[2020-08-21] MEDS: CARBAMIDE PEROXIDE 6.5% 15 ML BTL OT SCH ×2 (08:23→20:55)
[2020-08-21] MEDS: POTASSIUM CHLORIDE CRTAB 20 MEQ TABCR PO SCH ×2 (08:23→20:58)
[2020-08-21] MEDS: GABAPENTIN 300 MG CAP PO SCH ×3 (08:23→20:55)
[2020-08-21] MEDS: METOPROLOL SUCC 50MG EXT REL TAB PO SCH ×2 (08:24→20:57)
[2020-08-21] MEDS: CLOBETASOL SCH ×3 (08:24→23:59)
[2020-08-21] MEDS: PANTOprazole 40 MG TAB PO SCH (08:24)
[2020-08-21] MEDS ORDERED: ERGOCALCIFEROL 50,000 UNITS 1250 MCG CAP PO SCH (09:00)
[2020-08-21] MEDS: FUROSEMIDE 60 MG in SYRINGE 0 ML IV SCH ×4 (09:00→20:55)
--- NOTE | 2020-08-21 12:03 | Hospitalist Progress Note ---
Date of Service August 21, 2020 Assessment & Plan (1) Hypoxia: (2) Acute on chronic combined systolic (congestive) and diastolic (congestive) heart failure: Patient is a 54 yr male with H/O Chronic systolic and diastolic CHF, ischemic cardiomyopathy, CAD, history of SVT, AICD placement October 2019, PAF anticoagulated on warfarin, history of DVT on warfarin, HTN, HLD, CKD stage III baseline 1.5-1.7, NINA on BiPAP, asthma, insulin-dependent T2DM, diabetic peripheral neuropathy, hypothyroidism, chronic left nonhealing diabetic foot wound who presents to ED secondary to worsening shortness of breath and hypoxia for 2 to 3 days. Patient reports to orthopnea and paroxysmal nocturnal dyspnea on admission. Acute on chronic respiratory failure with hypoxia Likely Multifactorial Acute on chronic systolic/diastolic heart failure Recent extensive COVID pneumonitis could be contributing as well CTA:No evidence for pulmonary embolus. Extensive patchy bilateral airspace opacities consistent with a viral pneumonia. Trace right pleural effusion. ECHO limited due to technical difficulties. Reviewed Appreciate cardiology input. Continue IV Lasix 60 mg 3 times daily along with his spironolactone. Continue to monitor ins and outs along with daily weights. (3) Hypokalemia: secondary to diuresis Replace as needed (4) Diabetic ulcer of left foot: (5) Traumatic open wound of left lower leg: S/P Exploration and debridement with placement antibiotic beads of left foot wound on 08/03/[address] Bates As per ID Input pat to complete IV daptomycin and Zosyn for a total of 6 weeks Continue wound care (6) Pneumonia due to COVID-19 virus: Diagnosed with COVID-19 on 07/12 with development of viral pneumonia Completed IV dexamethasone and remdesivir course CTA as above Continue supportive care, supplemental oxygen Discussed with Pulmonology Normal procalcitonin (7) Ischemic cardiomyopathy: (8) CAD (coronary artery disease): (9) Hypertension: CAD Continue ASA, Metprolol Statin on hold while on Dapto (10) S/P ICD (internal cardiac defibrillator) procedure: H/O SVT S/P ICD placement in October 2019 Amiodarone discontinued secondary to pulmonary issues Metoprolol increased to 50 mg twice daily (11) Atrial fibrillation: Amiodarone DCed as above Continue metoprolol--needs up titration INR:3.8>3.4>3.5>>>2.7>>>2.4 C/W coumadin (12) Dyslipidemia: Hold statin while on daptomycin (13) Diabetes type 2, uncontrolled: HbA1c 7.6 On insulin pump consult glycemic pharmacy (14) CKD (chronic kidney disease) stage 3, GFR 30-59 ml/min: Baseline creatinine 1.2-1.3 Monitor renal function Cr:1.07 (15) Diabetic peripheral neuropathy associated with type 2 diabetes mellitus: continue gabapentin (16) NINA on CPAP: Bipap at HS (17) Hypothyroidism: Elevated Free T4, low TSH levothyroxine decreased to 88mcg Needs repeat thyroid function test in 4-6 weeks (18) DVT prophylaxis: Continue with daily coumadin. INR today at 2.4. CODE STATUS Full code Admission and Anticipated Discharge Date Admission Date: August 15, 2020 Subjective Okay this morning. Reports he feels okay. States his shortness of breath is about the same. Also reports that his urine output is not as much as it was before. Rest of the review of system is negative. Physical Exam Physical Exam: General: A&Ox3 HENT: NCAT, MMM, EOMI Eyes: PERRLA Neck: Supple, normal range of motion CVS: normal rate and rhythm Resp: b/l decreased breath sounds secondary to body habitus Abdomen: Soft, ND/NT Extremities: Chronic venous stasis skin changes, left lower dressings intact Neuro: face symmetric, no focal deficit MSK: no joint swelling/erythema Results & Data Results & Data ([facility]) Vital Signs (Past 12 Hours) Vital Signs Temp Pulse Resp BP Pulse Ox 08/21/20 07:00 36.9 C 77 20 159/80 H 95 08/21/20 04:40 36.5 C 82 20 155/83 H 98
[2020-08-21] MEDS: WARFARIN SOD 2 MG TAB PO SCH (16:08)
--- NOTE | 2020-08-21 16:24 | Cardiology Progress Note ---
Date of Service August 21, 2020 Assessment & Plan (1) Acute on chronic combined systolic (congestive) and diastolic (congestive) heart failure: Patient is a complex 54-year-old male with underlying history as outlined above and below noting history of ischemic cardiomyopathy with at least moderate LV dysfunction. Echocardiogram today demonstrates focal apical wall motion abnormality on limited views with grossly normal LV systolic function. Patient admitted with lower extremity edema and cellulitis. Exam consistent with right heart failure and anasarca. Chest x-ray concerning for post Covid pneumonitis with diffuse infiltrates likely aggravating above. In serial review of x-rays he has had progressive infiltrates superimposed on mild chronic congestive heart failure since 07/18/2020 Recommendations: Patient slowly responding to ongoing diuretic therapy. Strict I's and O's and daily weights on the same scale. Patient previously on metolazone would not add until potassium stabilized, potassium stable at 4 today. Continue spironolactone. Tolerating increased dose of metoprolol without issue. Anticipate extended stay for profound volume overload and need for continued diuresis. Okay to DC telemetry from a cardiac standpoint. (2) Pneumonia due to COVID-19 virus: Significant post Covid pneumonitis on chest x-ray with patient at risk for further ongoing progression (3) Right heart failure (secondary to left heart failure): (4) Morbid obesity: (5) S/P ICD (internal cardiac defibrillator) procedure: (6) Sustained ventricular tachycardia: Patient with prior VT ablation previously stable on beta-noy until recent illness. Will discontinue amiodarone due to contraindications to use gradually upward titrate beta-noy Admission and Anticipated Discharge Date Admission Date: August 15, 2020 Subjective Patient voicing his displeasure at lack of his perceived clinical improvement. Patient seen and examined, chart reviewed. Continues to diurese well but denies any improvement in symptoms. States no improvement in breathing from admission despite visually breathing easier. Patient voicing his displeasure at lack of his perceived clinical improvement. Telemetry reviewed: Normal sinus rhythm without arrhythmia. Review of Systems Review of Systems: All systems reviewed & are unremarkable except as noted in HPI & below Physical Exam Physical Exam: General: Awake, alert and oriented x 3. Mild conversational dyspnea HEENT: Normocephalic, atraumatic. Pupils equal, round and reactive to light and accommodation. Extraocular muscles are intact. Anicteric sclera. Moist mucous membranes. Neck: No JVD. No bruit. Cardiovascular: Regular. Positive S-4. Normal S-1 and S-2. No S-3. 3/6 holosystolic ejection murmur, 5th intercostal space, mid-clavicular line without radiation. No rubs. Pulmonary: Clear to auscultation bilaterally. No rales, rhonchi, or wheezing. Abdomen: Bowel sounds x 4, soft. No rebound, guarding or tenderness. No organomegaly. Extremities: Very large and edematous bilaterally with significant chronic venous stasis changes and left lower extremity wound bandaged. Skin: Warm and dry. Results & Data ([facility]) Vital Signs (Past 12 Hours) Vital Signs Temp Pulse Resp BP Pulse Ox 08/21/20 15:50 36.6 C 76 16 123/73 91 08/21/20 12:00 36.9 C 87 18 149/70 H 98 08/21/20 07:00 36.9 C 77 20 159/80 H 95 08/21/20 04:40 36.5 C 82 20 155/83 H 98
[2020-08-22] MEDS: MoRPHine SULFATE 4 MG/ML 1 ML CARP\\VIAL IV PRN (02:10)
[2020-08-22] MEDS: PIPERACILLIN/TAZOBACTAM 4.5 GM in DEXTROSE 5% 100 ML IV SCH ×3 (03:57→21:02)
[2020-08-22] MEDS: oxyCODONE HCL IR 5 MG TAB (IMMEDIATE RELEASE) PO PRN ×2 (05:31→14:35)
[2020-08-22] MEDS: LEVOTHYROXINE SODIUM 88 MCG TABLET PO SCH (05:31)
[2020-08-22 06:11] LABS: Hematocrit (blood only) 34.5 % (42-52); Hemoglobin 10.9 g/dL (14.0-18.0); Mean Corpuscular Hemoglobin 27.2 pg (25-34); Mean Corpuscular Hgb Conc 31.6 g/dL (32-36); Mean Platelet Volume 8.9 fL (7.4-10.4); Platelet Count 653 K/uL (130-400); RDW Coefficient of Variation 19.1 % (11.5-14.5); RDW Standard Deviation 60.3 fL (36.4-46.3); Red Blood Count 4.01 M/uL (4.7-6.1); White Blood Count 8.79 K/uL (4.8-10.8)
[2020-08-22 06:33] LABS: INR 1.9 (0.9-1.1); Prothrombin Time 18.2 Seconds (9.0-12.0)
[2020-08-22] MEDS: CLOBETASOL SCH ×2 (07:56→17:35)
[2020-08-22] MEDS: traMADol HCL 50 MG TABLET PO PRN (08:10)
[2020-08-22] MEDS: CARBAMIDE PEROXIDE 6.5% 15 ML BTL OT SCH (08:11)
[2020-08-22] MEDS: FUROSEMIDE 60 MG in SYRINGE 0 ML IV SCH ×3 (08:11→22:28)
[2020-08-22] MEDS: MAGNESIUM OXIDE 400 MG TAB PO SCH (08:12)
[2020-08-22] MEDS: PANTOprazole 40 MG TAB PO SCH (08:12)
[2020-08-22] MEDS: SPIRONOLACTONE 25 MG TAB PO SCH (08:12)
[2020-08-22] MEDS: METOPROLOL SUCC 50MG EXT REL TAB PO SCH ×2 (08:12→22:29)
[2020-08-22] MEDS: ASPIRIN 81 MG ECTAB PO SCH (08:12)
[2020-08-22] MEDS: HYOSCYAMINE SULFATE 0.125 MG TAB PO SCH ×3 (08:12→22:29)
[2020-08-22] MEDS: POTASSIUM CHLORIDE CRTAB 20 MEQ TABCR PO SCH ×2 (08:12→22:29)
[2020-08-22] MEDS: GABAPENTIN 300 MG CAP PO SCH ×3 (08:13→22:28)
[2020-08-22] MEDS: FLUTICASONE PROPIONATE NA SPR 16 GM BTL SCH ×2 (08:13→22:30)
[2020-08-22] MEDS: FLUTICASONE/VILANTEROL 200/25MCG 14 PUFFS/INHALER INH SCH (08:13)
[2020-08-22] MEDS: NovoLOG INSULIN PUMP SCH ×4 (08:14→22:34)
[2020-08-22] MEDS: DAPTOmycin 700 MG in SYRINGE 0 ML IV SCH (11:19)
--- NOTE | 2020-08-22 13:36 | Cardiology Progress Note ---
Date of Service August 22, 2020 Assessment & Plan (1) Acute on chronic combined systolic (congestive) and diastolic (congestive) heart failure: Patient is a complex 54-year-old male with underlying history as outlined above and below noting history of ischemic cardiomyopathy with at least moderate LV dysfunction. Echocardiogram today demonstrates focal apical wall motion abnormality on limited views with grossly normal LV systolic function. Patient admitted with lower extremity edema and cellulitis. Exam consistent with right heart failure and anasarca. Chest x-ray concerning for post Covid pneumonitis with diffuse infiltrates likely aggravating above. In serial review of x-rays he has had progressive infiltrates superimposed on mild chronic congestive heart failure since 07/18/2020 Recommendations: Patient continues to diurese without sign of renal impairment. Given inability to judge's clerk volume status based on physical exam we will continue with diuresis. Patient previously on metolazone would not add until potassium stabilized, potassium stable at 4 today. Continue spironolactone. Tolerating increased dose of metoprolol without issue. Anticipate extended stay for profound volume overload and need for continu ed diuresis. Okay to DC telemetry from a cardiac standpoint. (2) Pneumonia due to COVID-19 virus: Significant post Covid pneumonitis on chest x-ray with patient at risk for further ongoing progression (3) Right heart failure (secondary to left heart failure): (4) Morbid obesity: (5) S/P ICD (internal cardiac defibrillator) procedure: (6) Sustained ventricular tachycardia: Patient with prior VT ablation previously stable on beta-noy until recent illness. Will discontinue amiodarone due to contraindications to use gradually upward titrate beta-noy Admission and Anticipated Discharge Date Admission Date: August 15, 2020 Subjective States that he feels his breathing is somewhat improved today but not yet back to baseline. Denies other cardiac complaints Patient seen and examined, chart reviewed. Continues to diurese well but denies any improvement in symptoms. States that he feels his breathing is somewhat improved today but not yet back to baseline. Denies other cardiac complaints Telemetry reviewed: Normal sinus rhythm without arrhythmia. Review of Systems Review of Systems: All systems reviewed & are unremarkable except as noted in HPI & below Physical Exam Physical Exam: General: Awake, alert and oriented x 3. Mild conversational dyspnea HEENT: Normocephalic, atraumatic. Pupils equal, round and reactive to light and accommodation. Extraocular muscles are intact. Anicteric sclera. Moist mucous membranes. Neck: No JVD. No bruit. Cardiovascular: Regular. Positive S-4. Normal S-1 and S-2. No S-3. 3/6 holosystolic ejection murmur, 5th intercostal space, mid-clavicular line without radiation. No rubs. Pulmonary: Clear to auscultation bilaterally. No rales, rhonchi, or wheezing. Abdomen: Bowel sounds x 4, soft. No rebound, guarding or tenderness. No organomegaly. Extremities: Very large and edematous bilaterally with significant chronic venous stasis changes and left lower extremity wound bandaged. Skin: Warm and dry. Results & Data ([facility]) Vital Signs (Past 12 Hours) Vital Signs Temp Pulse Pulse Resp BP Pulse Ox 08/22/20 11:26 36.8 C 77 20 117/75 95 08/22/20 08:00 69 08/22/20 07:44 36.8 C 79 18 140/73 96 08/22/20 04:09 37.1 C 73 20 138/74 99
--- NOTE | 2020-08-22 14:54 | Hospitalist Progress Note ---
Date of Service August 22, 2020 Assessment & Plan (1) Hypoxia: (2) Acute on chronic combined systolic (congestive) and diastolic (congestive) heart failure: Patient is a 54 yr male with H/O Chronic systolic and diastolic CHF, ischemic cardiomyopathy, CAD, history of SVT, AICD placement October 2019, PAF anticoagulated on warfarin, history of DVT on warfarin, HTN, HLD, CKD stage III baseline 1.5-1.7, NINA on BiPAP, asthma, insulin-dependent T2DM, diabetic peripheral neuropathy, hypothyroidism, chronic left nonhealing diabetic foot wound who presents to ED secondary to worsening shortness of breath and hypoxia for 2 to 3 days. Patient reports to orthopnea and paroxysmal nocturnal dyspnea on admission. Acute on chronic respiratory failure with hypoxia Likely Multifactorial Acute on chronic systolic/diastolic heart failure Recent extensive COVID pneumonitis could be contributing as well CTA:No evidence for pulmonary embolus. Extensive patchy bilateral airspace opacities consistent with a viral pneumonia. Trace right pleural effusion. ECHO limited due to technical difficulties. Reviewed Appreciate cardiology input. Continue IV Lasix 60 mg 3 times daily along with his spironolactone. Patient had significant diuresis, reports of improvement of respiratory symptoms (3) Hypokalemia: secondary to diuresis Replace as needed (4) Diabetic ulcer of left foot: (5) Traumatic open wound of left lower leg: S/P Exploration and debridement with placement antibiotic beads of left foot wound on 08/03/[address] Bates As per ID Input pat to complete IV daptomycin and Zosyn for a total of 6 weeks Continue wound care (6) Ischemic cardiomyopathy: (7) CAD (coronary artery disease): (8) Hypertension: CAD Continue ASA, Metprolol Statin on hold while on Dapto (9) S/P ICD (internal cardiac defibrillator) procedure: H/O SVT S/P ICD placement in October 2019 Amiodarone discontinued secondary to pulmonary issues Metoprolol increased to 50 mg twice daily (10) Atrial fibrillation: On beta-noy, Coumadin (11) Dyslipidemia: Hold statin while on daptomycin (12) Diabetes type 2, uncontrolled: HbA1c 7.6 On insulin pump consult glycemic pharmacy (13) CKD (chronic kidney disease) stage 3, GFR 30-59 ml/min: Baseline creatinine 1.2-1.3 Monitor renal function Cr:1.07 (14) Diabetic peripheral neuropathy associated with type 2 diabetes mellitus: continue gabapentin (15) NINA on CPAP: Bipap at HS (16) Hypothyroidism: Elevated Free T4, low TSH levothyroxine decreased to 88mcg Needs repeat thyroid function test in 4-6 weeks (17) DVT prophylaxis: Continue with daily coumadin. CODE STATUS Full code Disposition: Expected to be discharged home with home health home PT in the next 1-2 days Admission and Anticipated Discharge Date Admission Date: August 15, 2020 Subjective Patient seen and examined, chart reviewed. Continues to diurese well but denies any improvement in symptoms. Telemetry reviewed: Normal sinus rhythm without arrhythmia. Review of Systems Review of Systems: All systems reviewed & are unremarkable except as noted in Subjective Physical Exam Physical Exam: Physical exam: General: Orbitally obese, sitting up in chair, no apparent distress HEENT: PERRLA, EOMI, Heart: Regular S1-S2, no carotid bruit, no JVD, no lower extremity edema Lungs: Clear to auscultate, no wheeze or rales Abdomen: Soft nontender, no organomegaly Extremity: Bilateral lower extremities significant lymphedema, left lower extremity open wound on mid mcknight, varicose vein dilatation on the lower leg, with open skin defect Neuro: No focal neurological deficit normal speech, normal visual field, Psych: Alert awake oriented x3, normal affect Results & Data Results & Data ([facility]) Vital Signs (Past 12 Hours) Vital Signs Temp Pulse Pulse Resp BP Pulse Ox 08/22/20 11:26 36.8 C 77 20 117/75 95 08/22/20 08:00 69 08/22/20 07:44 36.8 C 79 18 140/73 96 08/22/20 04:09 37.1 C 73 20 138/74 99
[2020-08-22] MEDS: WARFARIN SOD 2 MG TAB PO SCH (16:59)
[2020-08-23] MEDS: CLOBETASOL SCH ×2 (00:07→08:58)
[2020-08-23] MEDS: oxyCODONE HCL IR 5 MG TAB (IMMEDIATE RELEASE) PO PRN ×2 (01:07→09:09)
[2020-08-23] MEDS: PIPERACILLIN/TAZOBACTAM 4.5 GM in DEXTROSE 5% 100 ML IV SCH ×2 (01:57→11:42)
[2020-08-23] MEDS: LEVOTHYROXINE SODIUM 88 MCG TABLET PO SCH (05:49)
[2020-08-23 08:18] LABS: INR 1.9 (0.9-1.1); Prothrombin Time 18.2 Seconds (9.0-12.0)
[2020-08-23] MEDS: POTASSIUM CHLORIDE CRTAB 20 MEQ TABCR PO SCH (08:48)
[2020-08-23] MEDS: PANTOprazole 40 MG TAB PO SCH (08:48)
[2020-08-23] MEDS: SPIRONOLACTONE 25 MG TAB PO SCH (08:48)
[2020-08-23] MEDS: MAGNESIUM OXIDE 400 MG TAB PO SCH (08:49)
[2020-08-23] MEDS: HYOSCYAMINE SULFATE 0.125 MG TAB PO SCH ×2 (08:49→14:35)
[2020-08-23] MEDS: GABAPENTIN 300 MG CAP PO SCH ×2 (08:49→14:35)
[2020-08-23] MEDS: METOPROLOL SUCC 50MG EXT REL TAB PO SCH (08:49)
[2020-08-23] MEDS: FLUTICASONE PROPIONATE NA SPR 16 GM BTL SCH (08:50)
[2020-08-23] MEDS: FLUTICASONE/VILANTEROL 200/25MCG 14 PUFFS/INHALER INH SCH (08:50)
[2020-08-23] MEDS: ASPIRIN 81 MG ECTAB PO SCH (08:50)
[2020-08-23] MEDS: FUROSEMIDE 60 MG in SYRINGE 0 ML IV SCH ×2 (08:50→14:35)
[2020-08-23] MEDS: NovoLOG INSULIN PUMP SCH ×2 (08:54→12:31)
[2020-08-23] MEDS: DAPTOmycin 700 MG in SYRINGE 0 ML IV SCH (11:43)
--- NOTE | 2020-08-23 13:42 | Cardiology Progress Note ---
Date of Service August 23, 2020 Assessment & Plan (1) Acute on chronic combined systolic (congestive) and diastolic (congestive) heart failure: Patient is a complex 54-year-old male with underlying history as outlined above and below noting history of ischemic cardiomyopathy with at least moderate LV dysfunction. Echocardiogram today demonstrates focal apical wall motion abnormality on limited views with grossly normal LV systolic function. Patient admitted with lower extremity edema and cellulitis. Exam consistent with right heart failure and anasarca. Chest x-ray concerning for post Covid pneumonitis with diffuse infiltrates likely aggravating above. In serial review of x-rays he has had progressive infiltrates superimposed on mild chronic congestive heart failure since 07/18/2020 Recommendations: Patient continues to diurese sign of renal impairment. Given inability to continuity person volume status based on physical exam we will continue with diuresis. Okay to discharge from a cardiac standpoint with the addition of spironolactone 25 mg daily and torsemide 20 mg p.o. twice daily (2) Pneumonia due to COVID-19 virus: Significant post Covid pneumonitis on chest x-ray with patient at risk for further ongoing progression (3) Right heart failure (secondary to left heart failure): (4) Morbid obesity: (5) S/P ICD (internal cardiac defibrillator) procedure: (6) Sustained ventricular tachycardia: Patient with prior VT ablation previously stable on beta-noy until recent illness. Will discontinue amiodarone due to contraindications to use gradually upward titrate beta-noy Admission and Anticipated Discharge Date Admission Date: August 15, 2020 Subjective Patient seen and examined, chart reviewed. States her breathing is improved today and very anxious for discharge. States that lower extremity edema is improved and seems to be at baseline as well. Telemetry reviewed: Normal sinus rhythm without arrhythmia. Review of Systems Review of Systems: All systems reviewed & are unremarkable except as noted in HPI & below Physical Exam Physical Exam: General: Awake, alert and oriented x 3. Mild conversational dyspnea HEENT: Normocephalic, atraumatic. Pupils equal, round and reactive to light and accommodation. Extraocular muscles are intact. Anicteric sclera. Moist mucous membranes. Neck: No JVD. No bruit. Cardiovascular: Regular. Positive S-4. Normal S-1 and S-2. No S-3. 3/6 holosystolic ejection murmur, 5th intercostal space, mid-clavicular line without radiation. No rubs. Pulmonary: Clear to auscultation bilaterally. No rales, rhonchi, or wheezing. Abdomen: Bowel sounds x 4, soft. No rebound, guarding or tenderness. No orga nomegaly. Extremities: Very large and edematous bilaterally with significant chronic venous stasis changes and left lower extremity wound bandaged. Skin: Warm and dry. Results & Data ([facility]) Vital Signs (Past 12 Hours) Vital Signs Temp Pulse Pulse Pulse Pulse Pulse Resp 08/23/20 13:29 78 96 H 96 H 85 08/23/20 11:56 37.0 C 97 H 18 08/23/20 08:47 88 08/23/20 08:00 36.8 C 82 16 08/23/20 04:14 36.6 C 81 18 Resp Resp Resp Resp BP Pulse Ox Pulse Ox 08/23/20 13:29 18 20 18 18 91 08/23/20 11:56 140/79 95 08/23/20 08:47 155/81 H 08/23/20 08:00 124/63 96 08/23/20 04:14 142/83 H 94 Pulse Ox Pulse Ox Pulse Ox 08/23/20 13:29 87 L 89 L 94 08/23/20 11:56 08/23/20 08:47 08/23/20 08:00 08/23/20 04:14
[2020-08-23 15:39] LABS: BUN Creatinine Ratio 15.1 (10-20); Calcium 9.5 mg/dl (8.5-10.1); Creatinine Clr Calc Pharmacy 92.9 ml/min; Est GFR (African American) 64.1; Est GFR (Non-African American) 55.3; Potassium 3.8 mmol/L (3.5-5.1)
--- NOTE | 2020-08-23 15:48 | Discharge Summary ---
Date of Service August 23, 2020 Admission HPI Per Admitting Provider This is a 54-year-old medically complex male who has significant past medical history of chronic systolic and diastolic CHF, ischemic cardiomyopathy, CAD, history of SVT, AICD placement October 2019, PAF anticoagulated on warfarin, history of DVT on warfarin, HTN, HLD, CKD stage III baseline 1.5-1.7, NINA on BiPAP, asthma, insulin-dependent T2DM, diabetic peripheral neuropathy, hypothyroidism, chronic left nonhealing diabetic foot wound who presents to ED secondary to worsening shortness of breath and hypoxia for 2 to 3 days. Of significance patient has had 2 recent hospitalizations. Initially hospitalized 06/13 to 06/30/2020 secondary to right lower extremity cellulitis and group B strep bacteremia. He was then rehospitalized 07/12-07/26 secondary to worsening cellulitis and Covid pneumonia. He was treated with IV dexamethasone and remdesivir. He was discharged to home and unfortunately represented back on 08/11 and hospitalized till 08/08 secondary to left lower extremity cellulitis. He underwent exploration and I&D with antibiotic bead placement by Dr. Bates on 08/03. He had a PICC line placed and infectious disease recommended 6-week course of IV daptomycin and Zosyn. Chest x-ray imaging during that admission continue to reveal multifocal airspace opacities concerning for viral pneumonia but at that time patient was on room air. He was doing well at home until the past 2 to 3 days when he became increasingly short of breath. Shortness of breath mostly occurs when he is exerting himself or lying flat. He complains of orthopnea, PND and is having difficulty tolerating BiPAP secondary to gasping for air. He does have chronic sinus congestion, postnasal drip and occasional cough of clear sputum. He denies any fever but has chronic chills. He further denies any lightheadedness, dizziness, syncope, chest pain, palpitations, hemoptysis, nausea, vomiting, abdominal pain. Post discharge she was having difficulty with constipation and treated this with [id number] anticonstipation medications. He is now on the loose side. His appetite has overall been poor and he is unsure of any weight gain. He does admit to increasingly lower extremity edema over the past day. He feels his leg discoloration is unchanged. He denies any current pain in his left foot. He remains nonweightbearing of the left lower extremity. Patient summoned EMS this morning secondary to increasing shortness of breath and O2 saturations in the 70s. On arrival in ED he was hypoxic at 82% on room air. This responded well to 2 L of supplemental oxygen. Chest x-ray continues to show persistent bilater al airspace opacities consistent with viral pneumonia right greater than left. Lab work notable for hypokalemia at 2.6, H&H 10.2 and 31.0, elevated troponin 0.091, proBNP 3774, albumin 1.8. He continues to remain positive for SARS-CoV-2. In ED he received IV supplementation of potassium and oral tramadol for pain. Principal Diagnosis ACUTE ON CHRONIC COMBINED HEART FAILURE ( BOTH SYSTOLIC AND DIASTOLIC ) NON HEALING DIABETIC ULCER OF RIGHT FOOT TRAUMATIC OPEN WOUND OF LEFT LEG WITH CELLULITIS Discharge Data Allergies Allergy/AdvReac Type Severity Reaction Status Date / Time benzonatate AdvReac Intermediate choking, Verified 08/15/20 08:29 gagging Consultations 08/15/20 09:31 ED Decision to Admit Stat 08/15/20 14:22 Consult Orthopedic Surgery Routine 08/17/20 12:15 Consult Cardiology Routine Ordered Studies 08/15/20 07:31 CT angio chest PE protocol Stat Hospital Course (1) Hypoxia: (2) Acute on chronic combined systolic (congestive) and diastolic (congestive) heart failure: Patient is a 54 yr male with H/O Chronic systolic and diastolic CHF, ischemic cardiomyopathy, CAD, history of SVT, AICD placement October 2019, PAF anticoagulated on warfarin, history of DVT on warfarin, HTN, HLD, CKD stage III baseline 1.5-1.7, NINA on BiPAP, asthma, insulin-dependent T2DM, diabetic peripheral neuropathy, hypothyroidism, chronic left nonhealing diabetic foot wound who presents to ED secondary to worsening shortness of breath and hypoxia for 2 to 3 days. Patient reports to orthopnea and paroxysmal nocturnal dyspnea on admission. Acute on chronic respiratory failure with hypoxia Likely Multifactorial Acute on chronic systolic/diastolic heart failure Recent extensive COVID pneumonitis could be contributing as well CTA:No evidence for pulmonary embolus. Extensive patchy bilateral airspace opacities consistent with a viral pneumonia. Trace right pleural effusion. ECHO limited due to technical difficulties. Reviewed Appreciate cardiology input. lasix dose adjusted cont aldactne Patient had significant diuresis, reports of improvement of respiratory symptoms stable to be discharged home today (3) Hypokalemia: corrected discharged home with 20 meq PO daily K supplement (4) Diabetic ulcer of left foot: (5) Traumatic open wound of left lower leg: S/P Exploration and debridement with placement antibiotic beads of left foot wound on 08/03/[address] Bates As per ID Input pat to complete IV daptomycin and Zosyn for a total of 6 weeks Continue wound care (6) Ischemic cardiomyopathy: (7) CAD (coronary artery disease): (8) Hypertension: CAD Continue ASA, Metprolol Statin on hold while on Dapto (9) S/P ICD (internal cardiac defibrillator) procedure: H/O SVT S/P ICD placement in October 2019 Amiodarone discontinued secondary to pulmonary issues Metoprolol increased to 50 mg twice daily (10) Atrial fibrillation: On beta-noy, Coumadin (11) Dyslipidemia: Hold statin while on daptomycin (12) Diabetes type 2, uncontrolled: HbA1c 7.6 On insulin pump consult glycemic pharmacy (13) CKD (chronic kidney disease) stage 3, GFR 30-59 ml/min: Baseline creatinine 1.2-1.3 Monitor renal function Cr:1.07 (14) Diabetic peripheral neuropathy associated with type 2 diabetes mellitus: continue gabapentin (15) NINA on CPAP: Bipap at HS (16) Hypothyroidism: Elevated Free T4, low TSH levothyroxine decreased to 88mcg Needs repeat thyroid function test in 4-6 weeks (17) DVT prophylaxis: Continue with daily coumadin. CODE STATUS Full code Disposition: discharged home today Total Time Total Time Spent Total Time Spent (In Minutes): 35 mins Total Time Includes: Examination of the Patient, Discharge Planning, Medication Reconciliation and Communication With Other Providers Discharge Plan Discharge Items Patient Disposition: Home - Home Health Services Reason For Visit: SOB; CHF EXAC Discharge Diagnosis: ACUTE ON CHRONIC COMBINED HEART FAILURE ( BOTH SYSTOLIC AND DIASTOLIC ) NON HEALING DIABETIC ULCER OF RIGHT FOOT TRAUMATIC OPEN WOUND OF LEFT LEG WITH CELLULITIS Condition on Discharge: Fair Activity: Resume your previous activity Non-emergency contact: Primary Care Provider Call non-emergency contact if: you have any medication questions Follow-up/Referrals: Sherry Maya DO [Primary Care Provider] - 08/29/20 11:10 am (Date & Time 08/29/2020 11:10 AM Provider Sherry Maya DO Department [facility] ) Diet: Carb Consistent or DM2 and Heart Healthy Addtl Attending Provider Instructions: Please take all medications as instructed on discharge list below. It is recommended that you follow-up with your primary care physician within 1-2 weeks of hospital discharge to ensure you are still doing well. CONTINUE IV ANTIBIOTIC DAPTOMYCIN AND ZOSYN FOR 4 MORE WEEKS lab work : Basic Metabolic Panel with next physician visit Please call if you have any questions or problems. You can reach a [facility] hospitalist on duty at [facility] 24 hours a day by calling [phone] Pending Studies at Discharge: No Stand-Alone Forms: My [facility] [employer], Smoking Cessation Medications and DC Order Prescriptions: New metoprolol succinate 50 mg Tablet Extended Release 24 Hr 50 mg PO BID 30 Days Qty: 60 RF: 0 spironolactone 25 mg Tablet 25 mg PO QAM 30 Days Qty: 30 RF: 0 potassium chloride 20 mEq tablet extended release 20 meq PO DAILY Qty: 30 RF: 0 Continued fluticasone propionate [Flonase Allergy Relief] 50 mcg/actuation spray,suspension 2 sprays INTNAS BID RF: 0 levothyroxine 100 mcg capsule 100 mcg PO QAM RF: 0 magnesium oxide 400 mg capsule 400 mg PO QAM RF: 0 mometasone-formoterol [Dulera] 200-5 mcg/actuation HFA aerosol inhaler 2 puffs INH BID RF: 0 nitroglycerin 0.4 mg tablet, sublingual 0.4 mg SL Q5M PRN (Reason: Chest Pain) RF: 0 omeprazole 20 mg capsule,delayed release(DR/EC) 20 mg PO QAM RF: 0 tramadol 50 mg tablet 50 mg PO Q6H PRN (Reason: pain) RF: 0 Trulicity 1.5 mg/0.5 mL pen injector 1.5 mg SQ WK RF: 0 hydrocodone-acetaminophen 10-325 mg/15 mL(15 mL) solution 15 ml PO Q8H PRN (Reason: Pain) RF: 0 (DME) blood-glucose meter [OneTouch Verio Flex meter] Misc See Rx Instructions .ROUTE .MEDSUPPLY Qty: 1 RF: 0 insulin aspart U-100 [Novolog U-100 Insulin aspart] 100 unit/mL solution See Rx Instructions continuous subcutaneous infusion DAILY Qty: 12 RF: 5 hyoscyamine sulfate [Levsin] 0.125 mg Tablet 0.125 mg PO TID RF: 0 gabapentin 300 mg Capsule 300 mg PO TID RF: 0 ergocalciferol (vitamin D2) 2,500 unit Capsule 50,000 unit PO WK RF: 0 albuterol sulfate [Ventolin HFA] 90 mcg/actuation Hfa Aerosol Inhaler 2 puff INHALATION QID PRN (Reason: SHORT OF BREATH) RF: 0 atorvastatin 80 mg tablet 80 mg PO HS RF: 0 clobetasol 0.05 % cream 1 applic TOPICAL BID RF: 0 aspirin 81 mg Tablet,Delayed Release (Dr/Ec) 81 mg PO QAM RF: 0 warfarin 1 mg tablet 1 - 2 mg PO UD RF: 0 amiodarone 200 mg tablet 200 mg PO BID Qty: 60 RF: 0 Lac-Hydrin Five 5 % Lotion 1 applic TOPICAL DAILY PRN (Reason: Dry Skin) RF: 0 Discontinued potassium chloride 10 mEq tablet,ER particles/crystals 20 meq PO QAM RF: 0 torsemide 20 mg tablet 60 mg PO BID Qty: 180 RF: 0 Discharge Orders: Discharge Order (Routine); Ordered 08/23/20 Ordered By: Arcelia Forrester Admission Data Admit Date/Time: 08/15/20 09:49 Attending Provider: Arcelia Forrester Admit Provider: Lyric Emery Primary Care Provider: Sherry Maya Other Providers: Lyric Emery ; Bg Bates ; Ben Hoover Other Interventions: Discharge Summary Assessment (RN) Last Done: 08/23/20 14:26
--- NOTE | 2020-09-04 11:02 | Coding Query ---
CODING QUERY To promote full compliance with coding requirements relating to patient care, provider participation is requested in all cases of cpc coder uncertainty. Please assist us with the question(s) below: Coding Question(s): Per documentation, patient has Diabetes type 2, Uncontrolled. Please clarify below: ( x) Diabetes type 2 with Hyperglycemia ( ) Diabetes type 2 with Hypoglycemia ( ) Other Please Explain: Thank you Shubham Roach Principal Diagnosis: "that condition established after study, to be chiefly responsible for occasioning the admission of the patient to the hospital for care." Co-Existing Principal Diagnosis: "when two or more diagnoses equally meet the criteria for principal diagnosis as determined by the circumstances of admission, diagnostic work up, and/or therapy provided, and the Alphabetic Index, Tabular List, or another coding guideline does not provide sequencing direction, any one of the diagnoses may be sequenced first." "When the physician has documented what appears to be a current diagnosis in the body of the record, but has not included the diagnosis in the final diagnostic statement, the physician should be asked whether the diagnosis should be added." (Source [facility]oding [facility] 2 QTR90. p3-4) SRINIVAS
== END 2020-08-23 16:00 | disposition home health service (06) | DRG 291 ==
LOC: ED 07:14 → SUATTDRO 09:49 → 2S 09:49

== ENCOUNTER 2020-12-13 13:30 | Inpatient (IN) ==
[2020-12-13] MEDS ORDERED: PIPERACILLIN/TAZOBACTAM 4.5 GM/120 ML BAG IV ONE (16:46)
[2020-12-13] MEDS ORDERED: PIPERACILL/TAZOBAC CONSULT ACTIVE PRN ×2 (16:46→20:25)
--- NOTE | 2020-12-13 16:52 | Emergency Department Note ---
Impression & Plan Diabetic infection of left foot, Hyperglycemia due to type 2 diabetes mellitus, Acute osteomyelitis of left foot ED Provider Note Provider: Bruno Zarco MD DATE OF SERVICE: 12/13/2020 CHIEF COMPLAINT: Worsening foot wound HISTORY OF PRESENT ILLNESS: Patient is a 55-year-old gentleman history of poorly controlled type 2 diabetes, atrial fibrillation, CKD, COVID-19, ischemic cardiomyopathy with defibrillator, heart failure, chronic wounds of the feet presenting here today referred by wound care. Patient reports that approximate 2 weeks ago he was seen at [facility] and had debridement of his left foot and removing of the fifth MTP bone due to osteomyelitis. He reports h e was placed on Unasyn every 6 hours and had a PICC line. States he was doing okay but over the past 3 days the PICC line has not been working well and been slow at times. The wound VAC came off this morning and there is been some increased drainage from the left foot wound. Home nursing/wound care visited today and noted worsening wound and referred him to the hospital. Patient states he has had a little bit more pain today in the left foot. Patient states he lives by himself. Patient denies fevers but does have a borderline temperature upon arrival here. He states that his blood sugars have also been not well controlled into the 300s at times recently. REVIEW OF SYSTEMS: A total of 10 review of systems was obtained and negative except as stated above in the HPI. PAST MEDICAL HISTORY: As noted above MEDICATIONS: Reviewed home medication list SOCIAL HISTORY: Lives at home by himself PHYSICAL EXAM: GENERAL: alert and oriented in no acute distress on stretcher Head: normocephalic and atraumatic EYES: No injection, discharge or icterus. NECK: Trachea midline. ENT: Mucous membranes pink and moist. LUNGS: Airway patent. No retractions and no tachypnea HEART: Regular rate and rhythm. No chest wall tenderness ABDOMEN: Soft and non-tender, without guarding or rebound. SKIN: Acyanotic, warm with leg changes of below EXTREMITIES: Right upper extremity PICC line noted. Patient with swelling of the bilateral lower legs with chronic stasis changes. Left mcknight there is a small chronically granulated wound approximately 12 cm across the mid mcknight. Patient has a large seeping serous and slightly bloody wound from his left foot. There is a large wound to the base of the lateral fifth metatarsal area proximately 3 cm in circumference extending at least a centimeter in depth. There is another wound at the posterior left heel with diffuse macerated tissue and surrounding erythema. No crepitus appreciated. NEUROLOGICAL: No aphasia. No facial droop or slurred speech. Ambulatory with cane and boot on left leg CONTINUOUS CARDIAC MONITORING: was ordered and showed a heart rate of 70s - 80s bpm in normal sinus rhythm Patient's laboratory studies and imaging reviewed. Differential includes Foreign body, fracture, dislocation, joint compromise, infection, soft tissue injury, tendon injury, vascular compromise, compartment syndrome, as well as other pathologies. IMPRESSION/MEDICAL DECISION MAKING: Patient history of A. fib on warfarin lower suspicion for PE DVT. Not having significant systemic symptoms although borderline temperature upon arrival. Wo rsening wound of his left foot and recent surgery here for osteomyelitis. Has been on several weeks of Unasyn but PICC line not working well and last several days doses have been somewhat sporadic. Wound has been worsening going to wound care and there is a large serous drainage and visually large macerated area to the left foot. Do not believe this represents necrotizing fasciitis but significant concern for deterioration of the wound and question spread of infection. Does report some worsened pain here. Chest x-ray question some home edema or interstitial pneumonitis with the patient does not have significant symptoms of shortness of breath and has been on antibiotics. Could be a little bit of fluid overload but is not significantly symptomatic. Given empiric dose of Zosyn for broader coverage after cultures were obtained. Daptomycin was also added for gram-positive MRSA coverage. Given some fentanyl for pain. Leukocytosis is noted today. Lactate not elevated. Not tachycardic or hypotensive. Therapeutic INR. Mild hyperglycemia with his diabetes. CRP significantly elevated 13. No evidence of UTI. Left foot x-ray with significant concerns for diffuse osteomyelitis per radiology. Patient also states his blood sugars have been poorly controlled also not helping wound healing. Patient has been living at home by himself which given his comorbidities and the issues with his leg this may not be the best option. Discussed with the patient given the findings recommended further care here at the hospital for treatment of his wound and optimization of his general medical health for wound healing. Patient may eventually necessitate possible further debridement or amputation given the severe nature of the wound. DIAGNOSIS: Diabetic left foot wound, left foot osteomyelitis, hyperglycemia secondary to type 2 diabetes DISPOSITION: Hospitalist will evaluate Patient was agreeable with this plan. Past Med/Surg History Medical History Arthritis Asthma well controlled, daily prison 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 Bacteremia due to group B Streptococcus CAD (coronary artery disease) Cardiac defibrillator in situ 2007 with replacement 03/2020. follows with Dr[address] Maya. CKD (chronic kidney disease) stage 3, GFR 30-59 ml/min Deformity of foot Depression Diabetes type 2, uncontrolled Diabetic peripheral neuropathy associated with type 2 diabetes mellitus Dyslipidemia GERD (gastroesophageal reflux disease) H/O osteomyelitis History of diabetic ulcer of foot Hx of myocardial infarction found on testing Hx of osteomyelitis Hx of sepsis 06/2019 Hypertension Hypokalemia Hypothyroidism Ischemic cardiomyopathy Adams fracture Base of left fifth metatarsal, nonhealing x years Lymphedema Morbid obesity Rectal bleeding Sleep apnea BIPAP Sustained VT (ventricular tachycardia) Venous stasis ulcer of right lower leg with edema of right lower leg Vitamin D deficiency Surgical History H/O cardiac radiofrequency ablation OCTOBER 2019 (TACHY) AT [facility] H/O foot surgery LEFT FOOT ULCER DEBRIDEMENT H/O shoulder surgery left History of cardiac cath V. tach -- no stent. 06/2019. unsure where it was done History of colonoscopy History of esophagogastroduodenoscopy (EGD) History of sinus surgery Hx of amputation of lesser toe Hx of tonsillectomy Family History Sister Family history of diabetes mellitus 2 Grandmother (Maternal) Family history of diabetes mellitus Grandfather (Maternal) Family history of diabetes mellitus Father Cancer Mother Cancer Other No family history of adverse response to anesthesia Social History Smoking Status: Never smoker Second Hand Exposure: No; Hx Alcohol Use: Yes Alcohol type: other Hx Substance Use: No Preferred Language: Lao Communication Ability: Effective 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[employer] Required: No Beliefs That Will Affect Care: None marital status: Current Living Situation: Spouse current occupational status: disabled Feels Safe at Home: Yes Assistive Devices: Glasses, Oxygen - Continuous and Walker Allergies Allergies Allergy/AdvReac Type Severity Reaction Status Date / Time benzonatate AdvReac Intermediate choking, Verified 08/15/20 08:29 gagging Home Meds Home Medications Medication Instructions Recorded Confirmed fluticasone propionate 50 2 sprays INTNAS BID gm 12/21/17 08/15/20 mcg/actuation nasal spray,suspension (Flonase Allergy Relief) levothyroxine 100 mcg capsule 100 mcg PO QAM 12/21/17 08/15/20 magnesium oxide 400 mg PO QAM cap 12/21/17 08/15/20 mometasone-formoterol HFA 200 2 puffs INH BID 12/21/17 08/15/20 mcg-5 mcg/actuation aerosol inhaler (Dulera) nitroglycerin 0.4 mg sublingual 0.4 mg SL Q5M PRN 12/21/17 08/15/20 tablet omeprazole 20 mg capsule,delayed 20 mg PO QAM 12/21/17 08/15/20 release tramadol 50 mg tablet 50 mg PO Q6H PRN 12/21/17 08/15/20 ergocalciferol (vitamin D2) 62.5 50,000 unit PO WK 04/12/19 08/15/20 mcg (2,500 unit) capsule gabapentin 300 mg capsule 300 mg PO TID 04/12/19 08/15/20 hyoscyamine sulfate 0.125 mg 0.125 mg PO TID 04/12/19 08/15/20 tablet (Levsin) atorvastatin 80 mg tablet 80 mg PO HS 01/18/20 08/15/20 clobetasol 0.05 % topical cream 1 applic TOPICAL BID 01/18/20 08/15/20 dulaglutide 1.5 mg/0.5 mL 1.5 mg SQ WK ml 05/03/20 08/15/20 subcutaneous pen injector (Trulicity) albuterol sulfate 90 mcg/actuation 2 puff INHALATION QID PRN 05/30/20 08/15/20 aerosol inhaler (Ventolin HFA) aspirin 81 mg tablet,delayed 81 mg PO QAM 06/12/20 08/15/20 release hydrocodone 10 mg-acetaminophen 15 ml PO Q8H PRN 07/12/20 08/15/20 325 mg/15 mL (15 mL) oral solution warfarin 1 mg tablet 1 - 2 mg PO UD 07/12/20 08/15/20 ammonium lactate 5 % lotion 1 applic TOPICAL DAILY PRN 08/15/20 08/15/20 (Lac-Hydrin Five) Previous Rx's Medication Instructions Recorded blood-glucose meter (OneTouch #1 ea 02/21/20 Verio Flex meter) amiodarone 200 mg tablet 200 mg PO BID #60 tab 07/25/20 potassium chloride 20 mEq 20 meq PO DAILY #30 tab 08/23/20 tablet,extended release insulin aspart U-100 100 unit/mL See Rx Instructions CONTINUOUS 11/01/20 subcutaneous solution (Novolog SUBCUTANEOUS INFUSION DAILY #12 ml U-100 Insulin aspart) Results & Data (ED) Vital Signs Vital Signs - 24 hr 12/13/20 13:39 12/13/20 16:25 Temperature 37.6 C H 36.7 C Temperature Source Oral Oral Pulse Rate 70 Pulse Rate [Right Finger] 73 Pulse Rhythm Regular Pulse Strength Normal Respiratory Rate 16 18 Respiratory Effort / Characteristics Non-Labored Respiratory Depth Normal Respiratory Pattern Regular Blood Pressure 139/66 Blood Pressure [Left Arm] 162/76 H Blood Pressure Mean 90 Blood Pressure Mean [Left Arm] 104 Blood Pressure Position Sitting Pulse Oximetry 97 99 Oxygen Delivery Method Room Air Room Air Sepsis Recent Fever Within 48 Hours No Sepsis New/Unexplained Change in Mental Status N/A Sepsis Action Taken by Nursing No Action Required Laboratory Data Result diagrams: 12/13/20 16:59 12/13/20 16:59 Lab Results 12/13/20 12/13/20 12/13/20 Range/Units 16:59 16:59 16:59 WBC 12.91 H (4.8-10.8) K/uL RBC 3.91 L (4.7-6.1) M/uL Hgb 10.8 L (14.0-18.0) g/dL Hct 32.9 L (42-52) % MCV 84.1 (80-100) fL MCH 27.6 (25-34) pg MCHC 32.8 (32-36) g/dL RDW Std Deviation 52.2 H (36.4-46.3) fL RDW Coeff of Мария 17.1 H (11.5-14.5) % Plt Count 438 H (130-400) K/uL MPV 9.4 (7.4-10.4) fL Immature Gran % (Auto) 0.6 % Neut % (Auto) 78.6 % Lymph % (Auto) 7.1 % Perry % (Auto) 10.8 % Eos % (Auto) 2.5 % Baso % (Auto) 0.4 % Neut # (Auto) 10.15 H (1.4-6.5) K/uL Lymph # (Auto) 0.92 L (1.2-3.4) K/uL Perry # (Auto) 1.39 H (0.11-0.59) K/uL Eos # (Auto) 0.32 (0-0.5) K/uL Baso # (Auto) 0.05 (0-0.2) K/uL Immature Gran # (Auto) 0.08 H (0.00-0.02) K/uL ESR (0-20) mm/hr PT 22.4 H (9.0-12.0) Seconds INR 2.4 H (0.9-1.1) Sodium 136 (136-145) mmol/L Potassium (3.5-5.1) mmol/L Chloride 104 (98-107) mmol/L Carbon Dioxide 27 (21-32) mmol/L Anion Gap 5.0 (3-11) BUN 22 H (7-18) mg/dl Creatinine 1.25 (0.6-1.4) mg/dl Est Cr Clr Drug Dosing 100.2 ml/min Est GFR ( Amer) 73.6 ml/min Est GFR (Non-Af Amer) 63.5 ml/min BUN/Creatinine Ratio 17.4 (10-20) Glucose 139 H (70-99) mg/dl Lactate (0.4-2.0) mmol/L Calcium 8.8 (8.5-10.1) mg/dl Total Bilirubin 0.7 (0.2-1) mg/dl AST (15-37) U/L ALT 15 (12-78) U/L Alkaline Phosphatase 132 H (45-117) U/L Troponin I < 0.015 (0-0.045) ng/ml C-Reactive Protein 13.00 H (0-0.29) mg/dl Total Protein 8.9 H (6.4-8.2) gm/dl Albumin 2.3 L (3.4-5.0) gm/dl Globulin 6.6 H (2.5-4.0) gm/dl Albumin/Globulin Ratio 0.3 L (0.9-2) Urine Color Urine Appearance (Clear) Urine pH (4.5-7.5) Ur Specific Energy (1.000-1.030) Urine Protein (Negative) Urine Glucose (UA) (Negative) Urine Ketones (Negative) Urine Blood (Negative) Urine Nitrite (Negative) Urine Bilirubin (Negative) Urine Urobilinogen (Negative) Ur Leukocyte Esterase (Negative) COVID-19 Eval Order 12/13/20 12/13/20 12/13/20 Range/Units 16:59 16:59 17:05 WBC (4.8-10.8) K/uL RBC (4.7-6.1) M/uL Hgb (14.0-18.0) g/dL Hct (42-52) % MCV (80-100) fL MCH (25-34) pg MCHC (32-36) g/dL RDW Std Deviation (36.4-46.3) fL RDW Coeff of Мария (11.5-14.5) % Plt Count (130-400) K/uL MPV (7.4-10.4) fL Immature Gran % (Auto) % Neut % (Auto) % Lymph % (Auto) % Perry % (Auto) % Eos % (Auto) % Baso % (Auto) % Neut # (Auto) (1.4-6.5) K/uL Lymph # (Auto) (1.2-3.4) K/uL Perry # (Auto) (0.11-0.59) K/uL Eos # (Auto) (0-0.5) K/uL Baso # (Auto) (0-0.2) K/uL Immature Gran # (Auto) (0.00-0.02) K/uL ESR 102 H (0-20) mm/hr PT (9.0-12.0) Seconds INR (0.9-1.1) Sodium (136-145) mmol/L Potassium (3.5-5.1) mmol/L Chloride (98-107) mmol/L Carbon Dioxide (21-32) mmol/L Anion Gap (3-11) BUN (7-18) mg/dl Creatinine (0.6-1.4) mg/dl Est Cr Clr Drug Dosing ml/min Est GFR ( Amer) ml/min Est GFR (Non-Af Amer) ml/min BUN/Creatinine Ratio (10-20) Glucose (70-99) mg/dl Lactate 1.4 (0.4-2.0) mmol/L Calcium (8.5-10.1) mg/dl Total Bilirubin (0.2-1) mg/dl AST (15-37) U/L ALT (12-78) U/L Alkaline Phosphatase (45-117) U/L Troponin I (0-0.045) ng/ml C-Reactive Protein (0-0.29) mg/dl Total Protein (6.4-8.2) gm/dl Albumin (3.4-5.0) gm/dl Globulin (2.5-4.0) gm/dl Albumin/Globulin Ratio (0.9-2) Urine Color Urine Appearance (Clear) Urine pH (4.5-7.5) Ur Specific Energy (1.000-1.030) Urine Protein (Negative) Urine Glucose (UA) (Negative) Urine Ketones (Negative) Urine Blood (Negative) Urine Nitrite (Negative) Urine Bilirubin (Negative) Urine Urobilinogen (Negative) Ur Leukocyte Esterase (Negative) COVID-19 Eval Order Covid19 at [facility] 12/13/20 Range/Units 17:24 WBC (4.8-10.8) K/uL RBC (4.7-6.1) M/uL Hgb (14.0-18.0) g/dL Hct (42-52) % MCV (80-100) fL MCH (25-34) pg MCHC (32-36) g/dL RDW Std Deviation (36.4-46.3) fL RDW Coeff of Мария (11.5-14.5) % Plt Count (130-400) K/uL MPV (7.4-10.4) fL Immature Gran % (Auto) % Neut % (Auto) % Lymph % (Auto) % Perry % (Auto) % Eos % (Auto) % Baso % (Auto) % Neut # (Auto) (1.4-6.5) K/uL Lymph # (Auto) (1.2-3.4) K/uL Perry # (Auto) (0.11-0.59) K/uL Eos # (Auto) (0-0.5) K/uL Baso # (Auto) (0-0.2) K/uL Immature Gran # (Auto) (0.00-0.02) K/uL ESR (0-20) mm/hr PT (9.0-12.0) Seconds INR (0.9-1.1) Sodium (136-145) mmol/L Potassium (3.5-5.1) mmol/L Chloride (98-107) mmol/L Carbon Dioxide (21-32) mmol/L Anion Gap (3-11) BUN (7-18) mg/dl Creatinine (0.6-1.4) mg/dl Est Cr Clr Drug Dosing ml/min Est GFR ( Amer) ml/min Est GFR (Non-Af Amer) ml/min BUN/Creatinine Ratio (10-20) Glucose (70-99) mg/dl Lactate (0.4-2.0) mmol/L Calcium (8.5-10.1) mg/dl Total Bilirubin (0.2-1) mg/dl AST (15-37) U/L ALT (12-78) U/L Alkaline Phosphatase (45-117) U/L Troponin I (0-0.045) ng/ml C-Reactive Protein (0-0.29) mg/dl Total Protein (6.4-8.2) gm/dl Albumin (3.4-5.0) gm/dl Globulin (2.5-4.0) gm/dl Albumin/Globulin Ratio (0.9-2) Urine Color Yellow Urine Appearance Clear (Clear) Urine pH 7.0 (4.5-7.5) Ur Specific Energy 1.007 (1.000-1.030) Urine Protein Negative (Negative) Urine Glucose (UA) Negative (Negative) Urine Ketones Negative (Negative) Urine Blood Negative (Negative) Urine Nitrite Negative (Negative) Urine Bilirubin Negative (Negative) Urine Urobilinogen Negative (Negative) Ur Leukocyte Esterase Negative (Negative) COVID-19 Eval Order Administered Medications Discontinued Medications Fentanyl Citrate (Fentanyl Citrate 100 Mcg/2 Ml Vial) 75 mcg IV NOW STA Stop: 12/13/20 17:31 Last Admin: 12/13/20 17:47 Dose: 75 mcg Documented by: [id number] Piperacillin Sod/Tazobactam Sod (Zosyn) 4.5 gm in 120 mls @ 240 mls/hr IV NOW ONE Stop: 12/13/20 17:15 Last Infusion: 12/13/20 18:05 Dose: 0 mls/hr Documented by: [id number] Admin: 12/13/20 17:26 Dose: 240 mls/hr Documented by: [id number] Daptomycin 650 mg/ Syringe 13 mls @ 6.5 mls/min IV NOW ONE; Protocol Stop: 12/13/20 17:27 Last Admin: 12/13/20 17:48 Dose: 6.5 mls/min Documented by: [id number] Imaging Data Radiologist's Impression: Chest X-Ray 12/13/20 16:15 XR chest 1V portable HISTORY: 55 years-old Male Fever acute fever COMPARISON: 08/15/2020 TECHNIQUE: Portable AP view of the chest FINDINGS: Cardiac silhouette is enlarged. Pulmonary vascular congestion. Left subclavian pacer/AICD. Right-sided PICC distal tip terminates in the expected location of the proximal to mid SVC. Reticular interstitial opacities without pneumothorax or large pleural effusion. There is moderately improved aeration of the lungs from comparison study. Degenerative changes of the shoulders and spine. IMPRESSION: Cardiomegaly and pulmonary vascular congestion with reticular i nterstitial opacities suggestive of pulmonary edema. Interstitial pneumonitis could appear similarly. ACT 112: Negative or not required by law. The above report was generated using voice recognition software. It may contain grammatical, syntax or spelling errors. Electronically signed by: Carlos Johnson M.D. 12/13/2020 5:09 PM Foot X-Ray 12/13/20 16:37 XR foot LT min 3V routine HISTORY: 55 years-old Male wound patient presents with soft tissue wound of the left foot COMPARISON: 08/01/2020 TECHNIQUE: 3 views of the left foot FINDINGS: Marked diffuse soft tissue swelling with large cutaneous ulcer of the lateral forefoot/midfoot junction measures up to 5 cm. Soft tissue gas is present within the distribution. Interval development of bony destruction involving the base of the fifth metatarsal with additional bony destructive changes involving the bases of the second, third and fourth metatarsals with associated periostitis. Lytic bony structure changes are also noted involving the cuneiforms and navicular and also likely the lateral base of the first metatarsal. Midfoot collapse with dorsal subluxation of the forefoot. New osseous erosion of the plantar calcaneus posteriorly. IMPRESSION: Large soft tissue ulcer of the lateral forefoot/midfoot junction. Interval development of multifocal osteomyelitis of the forefoot, midfoot and hindfoot as above with associated midfoot/forefoot subluxation and articular destruction. ACT 112: Negative or not required by law. The above report was generated using voice recognition software. It may contain grammatical, syntax or spelling errors. Electronically signed by: Carlos Johnson M.D. 12/13/2020 5:12 PM Discharge Plan Visit Data Chief Complaint: Wound Stated Complaint: LEFT FT WOUND WORSE,PROBS W/ PICC LINE,REF BY ED Provider: Bruno Zarco Discharge Problem: Diabetic infection of left foot, Hyperglycemia due to type 2 diabetes mellitus, Acute osteomyelitis of left foot Patient Disposition: Being Evaluated by Hospitalist Forms Stand Alone Forms: [facility] Prescriptions Prescriptions: No Action fluticasone propionate [Flonase Allergy Relief] 50 mcg/actuation spray,suspension 2 sprays INTNAS BID RF: 0 levothyroxine 100 mcg capsule 100 mcg PO QAM RF: 0 magnesium oxide 400 mg capsule 400 mg PO QAM RF: 0 mometasone-formoterol [Dulera] 200-5 mcg/actuation HFA aerosol inhaler 2 puffs INH BID RF: 0 nitroglycerin 0.4 mg tablet, sublingual 0.4 mg SL Q5M PRN (Reason: Chest Pain) RF: 0 omeprazole 20 mg capsule,delayed release(DR/EC) 20 mg PO QAM RF: 0 tramadol 50 mg tablet 50 mg PO Q6H PRN (Reason: pain) RF: 0 Trulicity 1.5 mg/0.5 mL pen injector 1.5 mg SQ WK RF: 0 hydrocodone-acetaminophen 10-325 mg/15 mL(15 mL) solution 15 ml PO Q8H PRN (Reason: Pain) RF: 0 (DME) blood-glucose meter [OneTouch Verio Flex meter] Misc See Rx Instructions .ROUTE .MEDSUPPLY Qty: 1 RF: 0 insulin aspart U-100 [Novolog U-100 Insulin aspart] 100 unit/mL solution See Rx Instructions continuous subcutaneous infusion DAILY Qty: 12 RF: 5 hyoscyamine sulfate [Levsin] 0.125 mg Tablet 0.125 mg PO TID RF: 0 gabapentin 300 mg Capsule 300 mg PO TID RF: 0 ergocalciferol (vitamin D2) 2,500 unit Capsule 50,000 unit PO WK RF: 0 albuterol sulfate [Ventolin HFA] 90 mcg/actuation Hfa Aerosol Inhaler 2 puff INHALATION QID PRN (Reason: SHORT OF BREATH) RF: 0 atorvastatin 80 mg tablet 80 mg PO HS RF: 0 clobetasol 0.05 % cream 1 applic TOPICAL BID RF: 0 aspirin 81 mg Tablet,Delayed Release (Dr/Ec) 81 mg PO QAM RF: 0 warfarin 1 mg tablet 1 - 2 mg PO UD RF: 0 amiodarone 200 mg tablet 200 mg PO BID Qty: 60 RF: 0 Lac-Hydrin Five 5 % Lotion 1 applic TOPICAL DAILY PRN (Reason: Dry Skin) RF: 0 potassium chloride 20 mEq tablet extended release 20 meq PO DAILY Qty: 30 RF: 0 Referrals Referrals: Sherry Maya DO [Primary Care Provider] - Discharge Problem: Hyperglycemia due to type 2 diabetes mellitus Qualifiers: Diabetes mellitus prison insulin use: with clinical veterinarian use Qualified Code(s): E11.65 - Type 2 diabetes mellitus with hyperglycemia
--- NOTE | 2020-12-13 17:10 | XRay Report ---
XR chest 1V portable HISTORY: 55 years-old Male Fever acute fever COMPARISON: 08/15/2020 TECHNIQUE: Portable AP view of the chest FINDINGS: Cardiac silhouette is enlarged. Pulmonary vascular congestion. Left subclavian pacer/AICD. Right-side d PICC distal tip terminates in the expected location of the proximal to mid SVC. Reticular interstit ial opacities without pneumothorax or large pleural effusion. There is moderately improved aeration o f the lungs from comparison study. Degenerative changes of the shoulders and spine. IMPRESSION: Cardiomegaly and pulmonary vascular congestion with reticular interstitial opacities sugg estive of pulmonary edema. Interstitial pneumonitis could appear similarly. ACT 112: Negative or not required by law. The above report was generated using voice recognition software. It may contain grammatical, syntax o r spelling errors. Electronically signed by: Carlos Johnson M.D. 12/13/2020 5:09 PM
--- NOTE | 2020-12-13 17:14 | XRay Report ---
XR foot LT min 3V routine HISTORY: 55 years-old Male wound patient presents with soft tissue wound of the left foot COMPARISON: 08/01/2020 TECHNIQUE: 3 views of the left foot FINDINGS: Marked diffuse soft tissue swelling with large cutaneous ulcer of the lateral forefoot/midfoot juncti on measures up to 5 cm. Soft tissue gas is present within the distribution. Interval development of b reid destruction involving the base of the fifth metatarsal with additional bony destructive changes i nvolving the bases of the second, third and fourth metatarsals with associated periostitis. Lytic bon y structure changes are also noted involving the cuneiforms and navicular and also likely the lateral base of the first metatarsal. Midfoot collapse with dorsal subluxation of the forefoot. New osseous erosion of the plantar calcaneus posteriorly. IMPRESSION: Large soft tissue ulcer of the lateral forefoot/midfoot junction. Interval development of multifocal osteomyelitis of the forefoot, midfoot and hindfoot as above with associated midfoot/fore foot subluxation and articular destruction. ACT 112: Negative or not required by law. The above report was generated using voice recognition software. It may contain grammatical, syntax o r spelling errors. Electronically signed by: Carlos Johnson M.D. 12/13/2020 5:12 PM
[2020-12-13] MEDS ORDERED: DAPTOmycin 650 MG in SYRINGE 0 ML IV ONE (17:26)
[2020-12-13 17:30] LABS: Basophils # (auto) 0.05 K/uL (0-0.2); Basophils % (auto) 0.4 %; Eosinophils # (auto) 0.32 K/uL (0-0.5); Eosinophils % (auto) 2.5 %; Hematocrit (blood only) 32.9 % (42-52); Hemoglobin 10.8 g/dL (14.0-18.0); INR 2.4 (0.9-1.1); Immature Granulocytes # (auto) 0.08 K/uL (0.00-0.02); Immature Granulocytes % (auto) 0.6 %; Lymphocytes # (auto) 0.92 K/uL (1.2-3.4); Lymphocytes % (auto) 7.1 %; Mean Corpuscular Hemoglobin 27.6 pg (25-34); Mean Corpuscular Hgb Conc 32.8 g/dL (32-36); Mean Corpuscular Volume 84.1 fL (80-100); Mean Platelet Volume 9.4 fL (7.4-10.4); Monocytes # (auto) 1.39 K/uL (0.11-0.59); Monocytes % (auto) 10.8 %; Neutrophils # (auto) 10.15 K/uL (1.4-6.5); Neutrophils % (auto) 78.6 %; Platelet Count 438 K/uL (130-400); Prothrombin Time 22.4 Seconds (9.0-12.0); RDW Coefficient of Variation 17.1 % (11.5-14.5); RDW Standard Deviation 52.2 fL (36.4-46.3); Red Blood Count 3.91 M/uL (4.7-6.1); White Blood Count 12.91 K/uL (4.8-10.8)
[2020-12-13] MEDS ORDERED: fentaNYL citrate 100 MCG/2 ML VIAL IV STA (17:30)
--- NOTE | 2020-12-13 17:58 | History & Physical Report ---
Date of Service December 13, 2020 Assessment & Plan (1) Diabetic infection of left foot: (2) Acute osteomyelitis of left foot: Plan: This is a 55-year-old medically complex male who has significant past medical history of chronic systolic and diastolic CHF, ischemic cardiomyopathy, CAD, history of SVT, AICD placement October 2019, PAF anticoagulated on warfarin, history of DVT on warfarin, HTN, HLD, CKD stage III baseline 1.5-1.7, NINA on BiPAP, asthma, insulin-dependent T2DM, diabetic peripheral neuropathy, hypothyroidism, chronic left nonhealing diabetic foot wound who presents to ED secondary to referral from wound care 2/2 to worsening of L foot wound and slu ggish PICC Line. Status post soft tissue debridement of left foot wound and bone biopsy left metatarsal confirming osteomyelitis on 11/23 at [facility]. Per records + Corynebacterium and Enterococcus. Placed on IV Unasyn every 6 hours, unknown compliance and for the past 3 days PICC line has been sluggish. Presents today with worsening of wound and pain. He does not meet criteria for SIRS/sepsis, but does have leukocytosis 12.91, ESR 1 or 2, CRP 13. pt with multiple wounds of L foot and lateral wound to R foot Admit to PCU Blood cultures obtained Wound cultures Continue IV Daptomycin and Zosyn started in ED consult orthopedics will hold warfarin for now until seen by ortho, will initiate heparin when INR < 2 NPO after midnight in event procedure performed consult infectious disease wound care (3) Diabetic foot ulcer: Plan: pt with multiple wounds of L foot, L pretibial area and R lateral foot wound care/nurse consulted ortho consulted (4) T2DM (type 2 diabetes mellitus): Plan: a1c 7.3 10/18/20 insulin pump consult glycemic pharmacy for assistance (5) CAD (coronary artery disease): (6) Ischemic cardiomyopathy: (7) CHF (congestive heart failure): Plan: Patient with mixed diastolic and systolic CHF Last echocardiogram 05/26/2019 showed EF 30 to 35% with large apical, septal, anterior septal wall motion abnormality and akinesis He did have echo 07/2020; however very limited but documented EF Grossly normal daily weights, strict I and O saturating okay on room air pt c/o increased lower ext edema place on lasix IV 20mg BID continue metoprolol, aldactone, KCL hold statin 2/2 to dapto use (8) Hypertension: Plan: Bp stable continue home meds (9) Atrial fibrillation: Plan: rate and rhythm controlled on metoprolol hold warfarin in setting of possible procedure (10) CKD (chronic kidney disease) stage 3, GFR 30-59 ml/min: Plan: Baseline creatinine 1.5-1.7 BUN/creatinine stable at 22 and 1.25 Monitor daily (11) NINA on CPAP: Plan: Bipap at HS (12) Morbid obesity: 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 Allen, please see addendum History of Present Illness Chief Complaint: Referred by wound care 2/2 to worsening L foot wound and sluggish PICC line. Primary Care Provider: Sherry Maya DO This is a 55-year-old medically complex male who has significant past medical history of chronic systolic and diastolic CHF, ischemic cardiomyopathy, CAD, history of SVT, AICD placement October 2019, PAF anticoagulated on warfarin, history of DVT on warfarin, HTN, HLD, CKD stage III baseline 1.5-1.7, NINA on BiPAP, asthma, insulin-dependent T2DM, diabetic peripheral neuropathy, hypothyroidism, chronic left nonhealing diabetic foot wound who presents to ED secondary to referral from wound care 2/2 to worsening of L foot wound and sluggish PICC Line. Of significance patient recently hospitalized at [facility] 11/2111/29/2020 secondary to worsening left foot wound. Per re ports from hospitalization he had previously been following wound care and placed on IV Rocephin secondary to a 10/31 culture that grew a Proteus species. During hospitalization he underwent a soft tissue debridement of the left foot wound with bone biopsy and biopsy of calcaneus. Cultures grew Corynebacterium and Enterococcus. A wound VAC and PICC line was placed. He was discharged to home on IV Unasyn every 6 hours. SNF was recommended but patient refused. He was seen and evaluated today by home health and wound care. His wound VAC had fallen off today and in-home care felt wound worsening and referred him to hospital. His PICC was also felt to be sluggish. Patient complains of increased pain to left foot today. He lives alone. BSGs have been uncontrolled with blood sugars in the 300s. He denies f/c/s, dizziness, lightheaded, chest pain, sob, cough, n/v/d, abdominal pain, change in bowel or urinary habits. Feels his b/l legs are more swollen then usual. Does not monitor weight, unsure if change. In ED patient did have elevated temperature at 37.7 but otherwise hemodynamically stable. Lab work notable for elevated WBC 12.91, H&H 10.8 and 32.9, platelet 430, ESR 102, CRP 13. His INR was therapeutic at 2.4. He was started on IV daptomycin and Zosyn. Blood and wound cultures were obtained. Allergies Allergy/AdvReac Type Severity Reaction Status Date / Time benzonatate AdvReac Intermediate choking, Verified 12/13/20 19:37 gagging Home Medications Medication Instructions Recorded Confirmed Type fluticasone propionate 50 2 sprays INTNAS BID gm 12/21/17 12/13/20 History mcg/actuation nasal spray,suspension (Flonase Allergy Relief) magnesium oxide 400 mg PO QAM cap 12/21/17 12/13/20 History mometasone-formoterol HFA 200 2 puffs INH BID 12/21/17 12/13/20 History mcg-5 mcg/actuation aerosol inhaler (Dulera) nitroglycerin 0.4 mg sublingual 0.4 mg SL Q5M PRN 12/21/17 12/13/20 History tablet omeprazole 20 mg capsule,delayed 20 mg PO QAM 12/21/17 12/13/20 History release tramadol 50 mg tablet 50 mg PO Q6H PRN 12/21/17 12/13/20 History ergocalciferol (vitamin D2) 62.5 50,000 unit PO WK 04/12/19 12/13/20 History mcg (2,500 unit) capsule gabapentin 300 mg capsule 300 mg PO TID 04/12/19 12/13/20 History hyoscyamine sulfate 0.125 mg 0.125 mg PO TID 04/12/19 12/13/20 History tablet (Levsin) atorvastatin 80 mg tablet 80 mg PO HS 01/18/20 12/13/20 History clobetasol 0.05 % topical cream 1 applic TOPICAL BID 01/18/20 12/13/20 History blood-glucose meter (OneTouch #1 ea 02/21/20 12/13/20 Rx Verio Flex meter) albuterol sulfate 90 mcg/actuation 2 puff INHALATION QID PRN 05/30/20 12/13/20 History aerosol inhaler (Ventolin HFA) aspirin 81 mg tablet,delayed 81 mg PO QAM 06/12/20 12/13/20 History release warfarin 1 mg tablet 3 mg PO SUTH 07/12/20 12/13/20 History ammonium lactate 5 % lotion 1 applic TOPICAL DAILY PRN 08/15/20 12/13/20 History (Lac-Hydrin Five) potassium chloride 20 mEq 20 meq PO DAILY #30 tab 08/23/20 12/13/20 Rx tablet,extended release insulin aspart U-100 100 unit/mL See Rx Instructions CONTINUOUS 11/01/20 12/13/20 Rx subcutaneous solution (Novolog SUBCUTANEOUS INFUSION DAILY #12 ml U-100 Insulin aspart) hydrocodone 5 mg-acetaminophen 325 1 tab PO Q6H PRN 12/13/20 12/13/20 History mg tablet levothyroxine 88 mcg tablet 88 mcg PO DAILY 12/13/20 12/13/20 History metoprolol succinate 25 mg 25 mg PO BID 12/13/20 12/13/20 History tablet,extended release 24 hr metoprolol succinate 50 mg 50 mg PO BID 12/13/20 12/13/20 History tablet,extended release 24 hr spironolactone 25 mg tablet 25 mg PO DAILY 12/13/20 12/13/20 History torsemide 20 mg tablet 20 mg PO BID 12/13/20 12/13/20 History warfarin 1 mg tablet 2 mg PO MOTUWEFRSA 12/13/20 12/13/20 History Past Med/Surg History Medical History (Updated 12/13/20 @ 18:56 by Lora Moise PA-C) Arthritis Asthma well controlled, daily oil heaterman 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 Bacteremia due to group B Streptococcus CAD (coronary artery disease) Cardiac defibrillator in situ 2007 with replacement 03/2020. follows with Dr. Maay. CHF (congestive heart failure) CKD (chronic kidney disease) stage 3, GFR 30-59 ml/min Deformity of foot Depression Diabetes type 2, uncontrolled Diabetic peripheral neuropathy associated with type 2 diabetes mellitus Dyslipidemia GERD (gastroesophageal reflux disease) H/O osteomyelitis History of diabetic ulcer of foot Hx of myocardial infarction found on testing Hx of osteomyelitis Hx of sepsis 06/2019 Hypertension Hypokalemia Hypothyroidism Ischemic cardiomyopathy Adams fracture Base of left fifth metatarsal, nonhealing x years Lymphedema Morbid obesity Rectal bleeding Sleep apnea BIPAP Sustained VT (ventricular tachycardia) T2DM (type 2 diabetes mellitus) Venous stasis ulcer of right lower leg with edema of right lower leg Vitamin D deficiency Surgical History H/O cardiac radiofrequency ablation OCTOBER 2019 ([facility]) AT [facility] H/O foot surgery LEFT FOOT ULCER DEBRIDEMENT H/O shoulder surgery left History of cardiac cath V. tach -- no stent. 06/2019. unsure where it was done History of colonoscopy History of esophagogastroduodenoscopy (EGD) History of sinus surgery Hx of amputation of lesser toe Hx of tonsillectomy Family History Sister Family history of diabetes mellitus 2 Grandmother (Maternal) Family history of diabetes mellitus Grandfather (Maternal) Family history of diabetes mellitus Father Cancer Mother Cancer Other No family history of adverse response to anesthesia Social History Smoking Status: Never smoker Second Hand Exposure: No; Hx Alcohol Use: Yes Alcohol type: other Hx Substance Use: No Preferred Language: French Communication Ability: Effective 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: No Beliefs That Will Affect Care: None marital status: Current Living Situation: Spouse current occupational status: disabled Feels Safe at Home: Yes Assistive Devices: Glasses, Oxygen - Continuous and Walker Review of Systems Review of Systems: All systems reviewed & are unremarkable except as noted in HPI & below Physical Exam Physical Exam: Constitutional: WD/WN, vitals as above, NAD, sitting up in bed, pleasant, conversing easily Head: Normocephalic, Atraumatic Eyes: PERRL, conjunctivae normal, anicteric sclerae ENMT: external ear and nose normal, oropharynx normal Neck: trachea midline, no thyromegaly normal visual inspection Respiratory: normal respiratory effort, lungs clear to auscultation, no wheeze, rales, rhonchi. Normal insp/exp effort, no accessory muscle use Cardiovascular: RRR, no murmur, significant b/l lower ext lymphedema with chronic venous stasis changes, Vessels: no JVD or carotid bruit , RUE PICC noted Chest: normal inspection of chest Abdomen: normal bowel sounds, soft, nontender, no hepatosplenomegaly Musculoskeletal: no cyanosis or clubbing, extremities motor strength 5/5, Skin: no rashes, warm and dry normal turgor Neurologic: PERRL, EOMI, accommodation nl, no face palsy, no dysarthria CN's II-XI intact bilaterally and moves all extremities Wounds: Left pre tibial area small chronic wound approximately 12. Large wound draining serous fluid of L foot extending to base of 5th metatarsal. + Wound to L calcaneal region with surrounding redness. + wound to R lateral foot. +Found smelling Psychiatric: A+Ox3, euthymic affect Lymphatic: no cervical or axillary lymphadenopathy : deferred Results & Data Results & Data ([facility]) Vital Signs (Past 12 Hours) Vital Signs Temp Pulse Pulse Resp BP BP Pulse Ox 12/13/20 16:25 36.7 C 73 18 162/76 H 99 12/13/20 13:39 37.6 C H 70 16 139/66 97 Diagnostic Findings Chest X-Ray 12/13/20 16:15 XR chest 1V portable HISTORY: 55 years-old Male Fever acute fever COMPARISON: 08/15/2020 TECHNIQUE: Portable AP view of the chest FINDINGS: Cardiac silhouette is enlarged. Pulmonary vascular congestion. Left subclavian pacer/AICD. Right-sided PICC distal tip terminates in the expected location of the proximal to mid SVC. Reticular interstitial opacities without pneumothorax or large pleural effusion. There is moderately improved aeration of the lungs from comparison study. Degenerative changes of the shoulders and spine. IMPRESSION: Cardiomegaly and pulmonary vascular congestion with reticular interstitial opacities suggestive of pulmonary edema. Interstitial pneumonitis could appear similarly. ACT 112: Negative or not required by law. The above report was generated using voice recognition software. It may contain grammatical, syntax or spelling errors. Electronically signed by: Carlos Johnson M.D. 12/13/2020 5:09 PM Foot X-Ray 12/13/20 16:37 XR foot LT min 3V routine HISTORY: 55 years-old Male wound patient presents with soft tissue wound of the left foot COMPARISON: 08/01/2020 TECHNIQUE: 3 views of the left foot FINDINGS: Marked diffuse soft tissue swelling with large cutaneous ulcer of the lateral forefoot/midfoot junction measures up to 5 cm. Soft tissue gas is present within the distribution. Interval development of bony destruction involving the base of the fifth metatarsal with additional bony destructive changes involving the bases of the second, third and fourth metatarsals with associated periostitis. L ytic bony structure changes are also noted involving the cuneiforms and navicular and also likely the lateral base of the first metatarsal. Midfoot collapse with dorsal subluxation of the forefoot. New osseous erosion of the plantar calcaneus posteriorly. IMPRESSION: Large soft tissue ulcer of the lateral forefoot/midfoot junction. Interval development of multifocal osteomyelitis of the forefoot, midfoot and hindfoot as above with associated midfoot/forefoot subluxation and articular destruction. ACT 112: Negative or not required by law. The above report was generated using voice recognition software. It may contain grammatical, syntax or spelling errors. Electronically signed by: Carlos Johnson M.D. 12/13/2020 5:12 PM Medications Administered Medication List Discontinued Medications Fentanyl Citrate (Fentanyl Citrate 100 Mcg/2 Ml Vial) 75 mcg IV NOW STA Stop: 12/13/20 17:31 Last Admin: 12/13/20 17:47 Dose: 75 mcg Documented by: [id number] Piperacillin Sod/Tazobactam Sod (Zosyn) 4.5 gm in 120 mls @ 240 mls/hr IV NOW ONE Stop: 12/13/20 17:15 Last Infusion: 12/13/20 18:05 Dose: 0 mls/hr Documented by: [id number] Admin: 12/13/20 17:26 Dose: 240 mls/hr Documented by: [id number] Daptomycin 650 mg/ Syringe 13 mls @ 6.5 mls/min IV NOW ONE; Protocol Stop: 12/13/20 17:27 Last Admin: 12/13/20 17:48 Dose: 6.5 mls/min Documented by: [id number] COVID-19 Results Results COVID-19 Adm Lab Results: RBC 3.91 M/uL (4.7-6.1) L 12/13/20 WBC 12.91 K/uL (4.8-10.8) H 12/13/20 Hgb 10.8 g/dL (14.0-18.0) L 12/13/20 Hct 32.9 % (42-52) L 12/13/20 Plt Count 438 K/uL (130-400) H 12/13/20 Neutrophils (%) (Auto) 78.6 % 12/13/20 Lymphocytes (%) (Auto) 7.1 % 12/13/20 Monocytes # (Auto) 1.39 K/uL (0.11-0.59) H 12/13/20 Eosinophils # (Auto) 0.32 K/uL (0-0.5) 12/13/20 Immature Granulocyte % (Auto) 0.6 % 12/13/20 Neutrophils # (Auto) 10.15 K/uL (1.4-6.5) H 12/13/20 Lymphocytes # (Auto) 0.92 K/uL (1.2-3.4) L 12/13/20 Monocytes # (Auto) 1.39 K/uL (0.11-0.59) H 12/13/20 Eosinophils # (Auto) 0.32 K/uL (0-0.5) 12/13/20 Basophils # (Auto) 0.05 K/uL (0-0.2) 12/13/20 Immature Granulocyte # (Auto) 0.08 K/uL (0.00-0.02) H 12/13/20 Na 136 mmol/L (136-145) 12/13/20 K 3.8 mmol/L (3.5-5.1) 12/13/20 Cl 104 mmol/L (98-107) 12/13/20 CO2 27 mmol/L (21-32) 12/13/20 Anion Gap 5.0 (3-11) 12/13/20 BUN 22 mg/dl (7-18) H 12/13/20 Creatinine 1.25 mg/dl (0.6-1.4) 12/13/20 BUN/Creatinine Ratio 17.4 (10-20) 12/13/20 Glucose Level 139 mg/dl (70-99) H 12/13/20 Ca 8.8 mg/dl (8.5-10.1) 12/13/20 Total Bilirubin 0.7 mg/dl (0.2-1) 12/13/20 AST/SGOT 19 U/L (15-37) 12/13/20 ALT/SGPT 15 U/L (12-78) 12/13/20 Alkaline Phosphatase 132 U/L (45-117) H 12/13/20 Total Protein 8.9 gm/dl (6.4-8.2) H 12/13/20 Albumin 2.3 gm/dl (3.4-5.0) L 12/13/20 Globulin 6.6 gm/dl (2.5-4.0) H 12/13/20 Albumin/Globulin Ratio 0.3 (0.9-2) L 12/13/20 Troponin I < 0.015 ng/ml (0-0.045) 12/13/20 CRP 13.00 mg/dl (0-0.29) H 12/13/20 INR 2.4 (0.9-1.1) H 12/13/20 COVID-19 PCR NEGATIVE (Negative) 12/13/20 Chest X-Ray 12/13/20 Code Status & VTE Plan Code Status FULL CODE VTE Prophylaxis Plan VTE Prophylaxis will be ordered: No Supervising Physician Co-Signing Physician Notes Patient is a 55-year-old male with history of CHF, NINA, diabetes mellitus, history of DVT and other medical problems presents with history of worsening left foot wound infection associated with pain, discharge, worsening leg edema. Patient is currently being treated with IV Unasyn for ongoing foot wound. Please review HPI for complete details of presentation. Blood work suggestive of white blood cell count elevated 12k, therapeutic INR 2.4. Foot x-ray suggestive of large soft tissue ulceration of the lateral forefoot/midfoot junction and findings suggestive of osteomyelitis of the forefoot, midfoot and hindfoot. On exam patient is morbidly obese, no apparent distress, normocephalic atraumatic, lungs-normal breath sounds, clear to auscultation, S1- S2, no murmur, + 2+ bilateral lower extremity edema, abdomen soft, nontender, normal bowel sounds, alert, awake, oriented, grossly no focal deficits, lower extremity+ chronic venous stasis changes, B/L foot wounds noted. Patient is admitted for management of left foot osteomyelitis, diabetic foot ulcers. Agree with starting on IV daptomycin, Zosyn. Hold statin while on daptomycin. Blood, wound cultures to be obtained. Will consult orthopedics and ID for further input. Keep him n.p.o. after midnight. Diabetes being managed through insulin pump. Pharmacy consulted. Agree with IV Lasix given significant leg edema. Wound care nurse consulted. I personally reviewed the record. Patient is interviewed and examined at bedside. Patient's care is coordinated with Lora Moise PA-C. Please refer to the documentation above for details of patient's presentation and for discussion of other issues.
[2020-12-13 18:00] LABS: Alanine Aminotransferase 15 U/L (12-78); Albumin Globulin Ratio 0.3 (0.9-2); Albumin Level 2.3 gm/dl (3.4-5.0); Alkaline Phosphatase 132 U/L (45-117); BUN Creatinine Ratio 17.4 (10-20); Bilirubin,Total 0.7 mg/dl (0.2-1); Blood Urea Nitrogen 22 mg/dl (7-18); Calcium 8.8 mg/dl (8.5-10.1); Carbon Dioxide 27 mmol/L (21-32); Chloride 104 mmol/L (98-107); Creatinine Clr Calc Pharmacy 100.2 ml/min; Est GFR (African American) 73.6 ml/min; Est GFR (Non-African American) 63.5 ml/min; Globulin 6.6 gm/dl (2.5-4.0); Glucose 139 mg/dl (70-99); Sodium 136 mmol/L (136-145); Total Protein 8.9 gm/dl (6.4-8.2); Troponin I < 0.015 ng/ml (0-0.045)
[2020-12-13 18:01] LABS: Appearance Urine Clear (Clear); Bilirubin Urine Negative (Negative); Blood Urine Negative (Negative); Color Urine Yellow; Glucose Urine UA Negative (Negative); Ketones Urine Negative (Negative); Leukocyte Esterase Urine Negative (Negative); Nitrite Urine Negative (Negative); Protein Urine Negative (Negative); Specific Gravity Urine 1.007 (1.000-1.030); Urobilinogen Urine Negative (Negative)
[2020-12-13 18:45] LABS: Potassium 3.8 mmol/L (3.5-5.1)
[2020-12-13] MEDS ORDERED: ONDANSETRON INJ 2 MG/ML 2 ML VIAL IV PRN (20:25)
[2020-12-13] MEDS ORDERED: GLUCOSE 40% GEL 15 GM TUBE PO PRN (20:25)
[2020-12-13] MEDS ORDERED: ALUMINUM/MAGNESIUM SUSP 30 ML UDC PO PRN (20:25)
[2020-12-13] MEDS ORDERED: GLUCOSE 10 TABS/TUBE PO PRN (20:25)
[2020-12-13] MEDS ORDERED: POLYETHYLENE (MIRALAX) 17 GM PACK PO PRN (20:25)
[2020-12-13] MEDS ORDERED: GLUCAGON FOR INJ 1 MG VIAL SQ PRN (20:25)
[2020-12-13] MEDS ORDERED: ACETAMINOPHEN 325 MG TAB PO PRN (20:25)
[2020-12-13] MEDS ORDERED: PHARMACY GLYCEMIC MGMT CONSULT PRN (20:25)
[2020-12-13] MEDS ORDERED: DEXTROSE 50% 50 ML SYRINGE IV PRN (20:25)
[2020-12-13] MEDS ORDERED: CARBOHYDRATES FOR HYPOGLYCEMIA PO PRN (20:25)
[2020-12-13] MEDS ORDERED: ALBUTEROL HFA 8 GM INHALER INH PRN (20:25)
[2020-12-13] MEDS ORDERED: MAGNESIUM HYDROXIDE SUSP 30 ML UDC PO PRN (20:25)
[2020-12-13] MEDS ORDERED: INSULIN ASPART 100 UNITS/ML VIAL SC PRN (21:00)
[2020-12-13] MEDS ORDERED: traMADol HCL 50 MG TABLET PO PRN (21:14)
[2020-12-13] MEDS: PIPERACILLIN/TAZOBACTAM 4.5 GM in DEXTROSE 5% 100 ML IV SCH (21:51)
[2020-12-13] MEDS: FLUTICASONE PROPIONATE NA SPR 16 GM BTL SCH (21:52)
[2020-12-13] MEDS: HYOSCYAMINE SULFATE 0.125 MG TAB PO SCH (21:52)
[2020-12-13] MEDS: GABAPENTIN 300 MG CAP PO SCH (21:52)
[2020-12-13] MEDS: METOPROLOL SUCC 25MG EXT REL TAB PO SCH (21:53)
[2020-12-13] MEDS: METOPROLOL SUCC 50MG EXT REL TAB PO SCH (21:53)
[2020-12-13] MEDS: NovoLOG INSULIN PUMP SCH (22:40)
[2020-12-13] MEDS: AMMONIUM LACTATE 12% LOTION 225 GM BTL EXT SCH (22:50)
[2020-12-13] MEDS ORDERED: HYDROmorphone INJ 0.5 MG/0.5 ML SYR IV STA (22:55)
[2020-12-14] MEDS: HYDROmorphone INJ 0.5 MG/0.5 ML SYR IV PRN ×3 (06:05→18:33)
[2020-12-14] MEDS: PIPERACILLIN/TAZOBACTAM 4.5 GM in DEXTROSE 5% 100 ML IV SCH ×3 (06:30→21:10)
[2020-12-14] MEDS: LEVOTHYROXINE SODIUM 88 MCG TABLET PO SCH (06:30)
[2020-12-14 07:50] LABS: Basophils # (auto) 0.05 K/uL (0-0.2); Basophils % (auto) 0.6 %; Eosinophils % (auto) 4.4 %; Hematocrit (blood only) 32.1 % (42-52); Hemoglobin 10.2 g/dL (14.0-18.0); Immature Granulocytes # (auto) 0.05 K/uL (0.00-0.02); Immature Granulocytes % (auto) 0.6 %; Lymphocytes # (auto) 1.17 K/uL (1.2-3.4); Mean Corpuscular Hemoglobin 26.7 pg (25-34); Mean Corpuscular Hgb Conc 31.8 g/dL (32-36); Mean Platelet Volume 9.3 fL (7.4-10.4); Monocytes # (auto) 0.89 K/uL (0.11-0.59); Monocytes % (auto) 9.9 %; Neutrophils # (auto) 6.43 K/uL (1.4-6.5); Neutrophils % (auto) 71.5 %; Platelet Count 371 K/uL (130-400); RDW Coefficient of Variation 17.3 % (11.5-14.5); RDW Standard Deviation 53.1 fL (36.4-46.3); Red Blood Count 3.82 M/uL (4.7-6.1); White Blood Count 8.99 K/uL (4.8-10.8)
[2020-12-14 07:51] LABS: INR 2.8 (0.9-1.1); Prothrombin Time 25.9 Seconds (9.0-12.0)
[2020-12-14] MEDS: NovoLOG INSULIN PUMP SCH ×4 (08:08→21:01)
[2020-12-14] MEDS: FUROSEMIDE 20 MG in SYRINGE 0 ML IV SCH ×2 (08:19→15:50)
[2020-12-14] MEDS: MAGNESIUM OXIDE 400 MG TAB PO SCH (08:19)
[2020-12-14] MEDS: ASPIRIN 81 MG ECTAB PO SCH (08:19)
[2020-12-14] MEDS: HYOSCYAMINE SULFATE 0.125 MG TAB PO SCH ×3 (08:19→20:59)
[2020-12-14] MEDS: PANTOprazole 40 MG TAB PO SCH (08:19)
[2020-12-14] MEDS: GABAPENTIN 300 MG CAP PO SCH ×3 (08:19→20:59)
[2020-12-14] MEDS: POTASSIUM CHLORIDE CRTAB 20 MEQ TABCR PO SCH (08:19)
[2020-12-14] MEDS: METOPROLOL SUCC 50MG EXT REL TAB PO SCH ×2 (08:19→21:00)
[2020-12-14] MEDS: METOPROLOL SUCC 25MG EXT REL TAB PO SCH ×2 (08:19→21:00)
[2020-12-14] MEDS: FLUTICASONE PROPIONATE NA SPR 16 GM BTL SCH ×2 (08:20→20:59)
[2020-12-14] MEDS: AMMONIUM LACTATE 12% LOTION 225 GM BTL EXT SCH ×2 (08:20→21:00)
[2020-12-14] MEDS: FLUTICASONE/VILANTEROL 200/25MCG 14 PUFFS/INHALER INH SCH (08:20)
[2020-12-14] MEDS: SPIRONOLACTONE 25 MG TAB PO SCH (08:20)
[2020-12-14 08:27] LABS: Albumin Globulin Ratio 0.3 (0.9-2); BUN Creatinine Ratio 16.5 (10-20); Bilirubin,Total 0.5 mg/dl (0.2-1); Calcium 8.8 mg/dl (8.5-10.1); Creatinine Clr Calc Pharmacy 114.2 ml/min; Est GFR (African American) 87.8 ml/min; Est GFR (Non-African American) 75.8 ml/min; Globulin 5.9 gm/dl (2.5-4.0); Magnesium 2.4 mg/dl (1.8-2.4); Potassium 3.6 mmol/L (3.5-5.1); Total Protein 7.9 gm/dl (6.4-8.2)
[2020-12-14] MEDS ORDERED: INSULIN ASPART PER UNIT SC SCH (09:00)
[2020-12-14] MEDS ORDERED: FUROSEMIDE 40 MG/4 ML VIAL IV SCH (09:00)
[2020-12-14 09:29] LABS: Estimated Average Glucose 197 mg/dl; Hemoglobin A1C 8.5 % (4.5-5.6)
--- NOTE | 2020-12-14 09:55 | Pharmacy Report ---
Pharmacy Glycemic Short Note 2 - Date of Service December 14, 2020 - Glycemic Short BSG Results (Last 24 hours): 12/13/20 12/13/20 12/14/20 16:59 20:45 07:14 Glucose 139 H 154 H POC Glucose 153 H 12/14/20 07:18 Glucose POC Glucose 161 H OUTPATIENT ANTIDIABETIC REGIMEN: * Insulin pump - 2 units/hr ; CF 20, CR 4 * A1c 8.5% ASSESSMENT: * 55 year old admitted with L foot osteo, type 2 diabetic managed on insulin pump at home. Known to glycemic service from other admissions. Typically does very well on insulin pump while hospitalized. Prior admissions he has managed himself on pump while NPO/diet and did well * Spoke with patient today and he would like to continue with insulin pump. He feels comfortable adjusting pump as he is NPO this morning * Patient aware that if blood sugars become unstable, we may need to take off pump PLAN FOR INPATIENT GLYCEMIC CONTROL: * Insulin pump - continue
--- NOTE | 2020-12-14 11:49 | Orthopedic Consultation ---
Date of Consultation December 14, 2020 Assessment & Plan (1) Diabetic ulcer of left foot: Long-term history of diabetic foot ulcers of the left foot. Recent surgery on the left foot in [facility] for bone biopsy and irrigation debridement. Patient stating no osteomyelitis was found at that time. New foot x-ray as noted below. New development of osteomyelitis. Plan for MRI of the left foot with contrast. Dr. Bates is not available this weekend. I will discuss the case with Dr. Jauregui who will be seeing the patient this weekend. Discussed case with Wound Care Team. Likely use Aquacel AG with dressing changes. Supervising Physician Co-Signing Physician Notes Patient seen and examined. Agree with ARCADIO Woodson's note as above. Patient is currently under the care of Dr. Bates in our group for these chronic left foot wounds. Patient reports he has had these wounds on the lateral and posterior aspect of his left foot for several years. He has previously undergone an irrigation and debridement surgeries by Dr. Bates in May and July 2020. He was most recently seen in our clinic by Dr. Bates on October 23. He then had another irrigation and debridement surgery on November [address] Rodriguez in [place]. He was getting wound care with wound VAC changes, but noticed worsening of the wound with increased drainage that made wound VAC adherence difficult. He was sent to the hospital by the wound care team. Patient reports no pain in his foot. Current labs are significant for a hemoglobin A1c of 8.5, corresponding to an average glucose level of 197, ESR of 102, and CRP of 13. On x-rays and MRI of the left foot, he clearly has severe destruction and dislocation of the tarsometatarsal joints. Patient reports he has not really walked on this foot in quite some time. On exam, he has a very large lateral foot wound that is quite deep. I can easily see into the open midfoot joints. He has a smaller lateral heel ulcer. His exam and labs are certainly consistent with chronic osteomyelitis. He is morbidly obese, with a BMI of 45. His lower legs show significant venous stasis trophic skin changes. I advised the patient that in my opinion he would be best served with an amputation of this foot with this chronic nonhealing wound. I think that there is a low likelihood of being able to heal these wounds with further local debridements and wound care. However, amputation would be difficult for him due to his morbid obesity. It also may be very difficult for him to heal a below-knee amputation due to the chronic venous stasis changes of his skin below the knee. He has been under the care of Dr. Bates for quite some time, and I will leave further discussion of amputation to Dr. Bates and the patient. The patient does indicate that he has been thinking about amputation for some time, and may be amenable to this course of treatment. History of Present Illness Reason for Consultation: Left foot diabetic ulcer Attending Physician: Cl Cruz MD History of Present Illness This is a 55-year-old medically complex male known to our practice who has significant past medical history of chronic systolic and diastolic CHF, ischemic cardiomyopathy, CAD, history of SVT, AICD placement October 2019, PAF anticoagulated on warfarin, history of DVT on warfarin, HTN, HLD, CKD stage III baseline 1.5-1.7, NINA on BiPAP, asthma, insulin-dependent T2DM, diabetic peripheral neuropathy, hypothyroidism, chronic left nonhealing diabetic foot wound. Patient was seen by Dr. Bates earlier in the year and underwent extensive debridement of his ulcers on the left foot. After debridement, the patient had stimulant beads implanted to help with his infection. He had been on IV antibiotics for several weeks. He then underwent wound care regularly in [place]. The patient states that his wounds were getting better. He had placed a wound VAC on his ulcers and were changing it regularly. He started to have some worsening symptoms with the foot with drainage etc. and he ended up going to [facility] and was treated by Dr. Vicente. Apparently Dr. Vicente was in contact with Dr. Bates. Dr. Vicente took the patient to surgery for irrigation and debridement as well as bone biopsy. Biopsies were taken of the calcaneus and it appears through x-ray that his base of the fifth metatarsal head was removed. 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 The patient states that there was no osteomyelitis listed on either of the bone biopsies. Once the wound was treated he was continued on wound VAC care. The patient has continued to receive IV antibiotics through PICC line. He states that earlier this week he had a wound VAC change. Home health came out several days later to change the wound VAC but apparently it had fallen off secondary to increased drainage. He also noticed that medication going through the PICC line was sluggish. Home health services reviewed the wound yesterday and noticed changes. He was thusly referred to the emergency room. He was admitted for further care. We have been asked to see him for his left foot ulcer. Currently the patient is comfortable and without pain. He feels that the wounds were doing well up until this last week. He denies any fevers, chills, nausea or vomiting. He had noticed increased drainage and different color of drainage through the wound VAC this week. He denies any foul odor. Denies any purulent drainage. Allergies Allergy/AdvReac Type Severity Reaction Status Date / Time benzonatate AdvReac Intermediate choking, Verified 12/13/20 19:37 gagging Home Medications Medication Instructions Recorded Confirmed Type fluticasone propionate 50 2 sprays INTNAS BID gm 12/21/17 12/13/20 History mcg/actuation nasal spray,suspension (Flonase Allergy Relief) magnesium oxide 400 mg PO QAM cap 12/21/17 12/13/20 History mometasone-formoterol HFA 200 2 puffs INH BID 12/21/17 12/13/20 History mcg-5 mcg/actuation aerosol inhaler (Dulera) nitroglycerin 0.4 mg sublingual 0.4 mg SL Q5M PRN 12/21/17 12/13/20 History tablet omeprazole 20 mg capsule,delayed 20 mg PO QAM 12/21/17 12/13/20 History release tramadol 50 mg tablet 50 mg PO Q6H PRN 12/21/17 12/13/20 History ergocalciferol (vitamin D2) 62.5 50,000 unit PO WK 04/12/19 12/13/20 History mcg (2,500 unit) capsule gabapentin 300 mg capsule 300 mg PO TID 04/12/19 12/13/20 History hyoscyamine sulfate 0.125 mg 0.125 mg PO TID 04/12/19 12/13/20 History tablet (Levsin) atorvastatin 80 mg tablet 80 mg PO HS 01/18/20 12/13/20 History clobetasol 0.05 % topical cream 1 applic TOPICAL BID 01/18/20 12/13/20 History blood-glucose meter (NKT TherapeuticsTouch #1 ea 02/21/20 12/13/20 Rx Verio Flex meter) albuterol sulfate 90 mcg/actuation 2 puff INHALATION QID PRN 05/30/20 12/13/20 History aerosol inhaler (Ventolin HFA) aspirin 81 mg tablet,delayed 81 mg PO QAM 06/12/20 12/13/20 History release warfarin 1 mg tablet 3 mg PO SUTH 07/12/20 12/13/20 History ammonium lactate 5 % lotion 1 applic TOPICAL DAILY PRN 08/15/20 12/13/20 History (Lac-Hydrin Five) potassium chloride 20 mEq 20 meq PO DAILY #30 tab 08/23/20 12/13/20 Rx tablet,extended release insulin aspart U-100 100 unit/mL See Rx Instructions CONTINUOUS 11/01/20 12/13/20 Rx subcutaneous solution (Novolog SUBCUTANEOUS INFUSION DAILY #12 ml U-100 Insulin aspart) hydrocodone 5 mg-acetaminophen 325 1 tab PO Q6H PRN 12/13/20 12/13/20 History mg tablet levothyroxine 88 mcg tablet 88 mcg PO DAILY 12/13/20 12/13/20 History metoprolol succinate 25 mg 25 mg PO BID 12/13/20 12/13/20 History tablet,extended release 24 hr metoprolol succinate 50 mg 50 mg PO BID 12/13/20 12/13/20 History tablet,extended release 24 hr spironolactone 25 mg tablet 25 mg PO DAILY 12/13/20 12/13/20 History torsemide 20 mg tablet 20 mg PO BID 12/13/20 12/13/20 History warfarin 1 mg tablet 2 mg PO MOTUWEFRSA 12/13/20 12/13/20 History Patient History Medical History Arthritis Asthma well controlled, 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 Bacteremia due to group B Streptococcus CAD (coronary artery disease) Cardiac defibrillator in situ 2007 with replacement 03/2020. follows with Dr. Maya. CHF (congestive heart failure) CKD (chronic kidney disease) stage 3, GFR 30-59 ml/min Deformity of foot Depression Diabetes type 2, uncontrolled Diabetic peripheral neuropathy associated with type 2 diabetes mellitus Dyslipidemia GERD (gastroesophageal reflux disease) H/O osteomyelitis History of diabetic ulcer of foot Hx of myocardial infarction found on testing Hx of osteomyelitis Hx of sepsis 06/2019 Hypertension Hypokalemia Hypothyroidism Ischemic cardiomyopathy Adams fracture Base of left fifth metatarsal, nonhealing x years Lymphedema Morbid obesity Rectal bleeding Sleep apnea BIPAP Sustained VT (ventricular tachycardia) T2DM (type 2 diabetes mellitus) Venous stasis ulcer of right lower leg with edema of right lower leg Vitamin D deficiency Surgical History H/O cardiac radiofrequency ablation OCTOBER 2019 ([facility]) AT [facility] H/O foot surgery LEFT FOOT ULCER DEBRIDEMENT H/O shoulder surgery left History of cardiac cath V. tach -- no stent. 06/2019. unsure where it was done History of colonoscopy History of esophagogastroduodenoscopy (EGD) History of sinus surgery Hx of amputation of lesser toe Hx of tonsillectomy Family History Sister Family history of diabetes mellitus 2 Grandmother (Maternal) Family history of diabetes mellitus Grandfather (Maternal) Family history of diabetes mellitus Father Cancer Mother Cancer Other No family history of adverse response to anesthesia Social History Smoking Status: Never smoker Second Hand Exposure: No; Do You Dip or Chew Tobacco: No; Tobacco Cessation Education Requested by Patient: No Hx Alcohol Use: No Hx Substance Use: No Preferred Language: [place] Verdean Communication Ability: Effective Relief Salesperson Required: No Beliefs That Will Affect Care: None marital status: Current Living Situation: Alone current occupational status: disabled How many Children do You have: 3 Feels Safe at Home: Yes Safety Concerns: Feels Safe At This Time Assistive Devices: None Review of Systems Review of Systems: All systems reviewed & are unremarkable except as noted in HPI & below Physical Exam Physical Exam: Upon entering his room, the patient is sitting up in bed awake and alert. He appears comfortable. No acute distress. Pleasant and cooperative. He is oriented x3. On examination of his left foot, he continues to have moderate edema. His legs do not appear any different than when I last saw him in July with noted venous stasis changes and lymphedema. He does have a skin tear across the left leg midway between the ankle and knee on the anterior aspect which he states is from a Tubigrip dressing that narrowed down and applied pressure causing a wound across the leg. This appears to be dry, no purulence noted. He has a dressing on the left foot that has moderate drainage noted. All of the drainage looks to be serosanguineous. There is no foul odor. The dressing is removed. This reveals a ulcer back along the lateral heel with a deeper component to it that is about a centimeter wide the actual ulcer is approximately 5 to 6 cm in length and 4 cm in width. It has a very clean base and very clean edges. There is no purulence and does not appear to be draining at this time. The larger ulcer along the lateral aspect of the foot appears a bit larger than our last remember it. It is almost in a star-shaped pattern on the anterior portion with some rounder edges on the posterior aspect. He does have some noticeable maceration of the skin on the proximal end of that ulcer that appears deep and just underneath there appears to be either ecchymosis and/or skin necrosis developing. I cannot see open bone through this ulcer at this time but it is fairly deep. He does have some noted erythema around the foot but this has not been unusual for him. He does not have any benedict purulence coming from the wound. There is no odor. Serosanguineous drainage noted. Wound is redressed with Adaptic, 4 x 4's, ABDGarrett velezx. Results & Data ([facility]) Vital Signs (Past 12 Hours) Vital Signs Temp Pulse Pulse Resp BP Pulse Ox 12/14/20 08:08 37.0 C 65 18 127/94 96 12/14/20 03:44 67 12/14/20 03:12 36.9 C 71 24 111/62 95 Diagnostic Findings XR foot LT min 3V routine HISTORY: 55 years-old Male wound patient presents with soft tissue wound of the left foot COMPARISON: 08/01/2020 TECHNIQUE: 3 views of the left foot FINDINGS: Marked diffuse soft tissue swelling with large cutaneous ulcer of the lateral forefoot/midfoot junction measures up to 5 cm. Soft tissue gas is present within the distribution. Interval development of bony destruction involving the base of the fifth metatarsal with additional bony destructive changes involving the bases of the second, third and fourth metatarsals with associated periostitis. Lytic bony structure changes are also noted involving the cuneiforms and navicular and also likely the lateral base of the first metatarsal. Midfoot collapse with dorsal subluxation of the forefoot. New osseous erosion of the plantar calcaneus posteriorly. IMPRESSION: Large soft tissue ulcer of the lateral forefoot/midfoot junction. Interval development of multifocal osteomyelitis of the forefoot, midfoot and hindfoot as above with associated midfoot/forefoot subluxation and articular destruction. ACT 112: Negative or not required by law. The above report was generated using voice recognition software. It may contain grammatical, syntax or spelling errors.
--- NOTE | 2020-12-14 13:24 | Electrocardiogram Report ---
Test Reason : Blood Pressure : / mmHG Vent. Rate : 073 BPM Atrial Rate : 073 BPM P-R Int : 206 ms QRS Dur : 106 ms QT Int : 424 ms P-R-T Axes : 017 -28 094 degrees QTc Int : 467 ms Normal sinus rhythm Anteroseptal infarct (cited on or before 16-AUG-2020) T wave abnormality, consider lateral ischemia Abnormal ECG When compared with ECG of 16-AUG-2020 05:50, No significant change was found Confirmed by Tereso Reyna ([id number]) on 12/14/2020 1:24:21 PM Referred By: REFERRED SELF Confirmed By:Tereso Reyna
[2020-12-14] MEDS ORDERED: GADOBUTROL 65ML VIAL IV ONE (14:48)
[2020-12-14] MEDS: DAPTOmycin 650 MG in SYRINGE 0 ML IV SCH (15:50)
--- NOTE | 2020-12-14 16:02 | Magnetic Resonance Report ---
MR foot LT wo/w con HISTORY: 55 years-old Male r/o osteomyelitis chronic diabetic ulcer at the base of the fifth toe COMPARISON: [Radiographs 08/01/2020 and 12/13/2020, MRI left foot 06/14/2020 TECHNIQUE: Multiplanar multisequence MRI of the left foot was obtained both with and without the use of 15.0 mL Gadavist FINDINGS: Motion degraded exam. There is a large ulcer involving the plantar and lateral aspect of the forefoot and midfoot junction measuring approximately 5.3 x 2.6 x 4.4 cm. Diffuse cellulitis with extensive s ubcutaneous edema. Atrophy of the intrinsic musculature compatible with chronic denervation changes. There is deep tissue gas without drainable abscess. Multifocal bony destruction with extensive marrow edema is noted throughout the midfoot which involves the cuneiforms, cuboid and navicular with assoc iated osseous bony destruction. Additionally, there are lytic bony destructive changes involving the second through fifth metatarsal bases with periostitis and edema extending to the distal diaphyseal s egments. There is a small subcortical cyst involving the medial base of the first metatarsal. Midfoot collapse with dorsal subluxation of the forefoot. Osteonecrosis of the cuneiforms. The tendons and ligaments are not well evaluated. IMPRESSION: 1. Large plantar ulcer of the lateral midfoot forefoot junction with extensive cellulitis. Deep tissu e gas is likely secondary to direct extension from the wound. Gas forming organism could appear simil denny. No drainable abscess. 2. Extensive osteomyelitis throughout the forefoot and midfoot as above with articular and bony destr uction resulting in dorsal dislocation of the forefoot. 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 Ass ociated changes of Charcot neuropathy may also be present. These findings are new from 08/01/2020. ACT 112: Negative or not required by law. The above report was generated using voice recognition software. It may contain grammatical, syntax o r spelling errors. Electronically signed by: Carlos Johnson M.D. 12/14/2020 4:01 PM
--- NOTE | 2020-12-14 16:31 | Hospitalist Progress Note ---
Date of Service December 14, 2020 Assessment & Plan (1) Diabetic infection of left foot: (2) Acute osteomyelitis of left foot: Plan: This is a 55-year-old medically complex male who has significant past medical history of chronic systolic and diastolic CHF, ischemic cardiomyopathy, CAD, history of SVT, AICD placement October 2019, PAF anticoagulated on warfarin, history of DVT on warfarin, HTN, HLD, CKD stage III baseline 1.5-1.7, NINA on BiPAP, asthma, insulin-dependent T2DM, diabetic peripheral neuropathy, hypothyroidism, chronic left nonhealing diabetic foot wound who presents to ED secondary to referral from wound care /2 to worsening of L foot wound and slu ggish PICC Line. Status post soft tissue debridement of left foot wound and bone biopsy left metatarsal confirming osteomyelitis on 11/23 at [facility]. Per records + Corynebacterium and Enterococcus. Placed on IV Unasyn every 6 hours, unknown compliance and for the past 3 days PICC line has been sluggish. Presents today with worsening of wound and pain. He does not meet criteria for SIRS/sepsis, but does have leukocytosis 12.91, ESR 1 or 2, CRP 13. pt with multiple wounds of L foot and lateral wound to R foot Blood cultures obtained Wound cultures Continue IV Daptomycin and Zosyn started in ED Orthopedics and ID have been consulted MRI has been done and awaiting results Clinically remains stable Awaiting further input and recommendations from Ortho and ID (3) Diabetic foot ulcer: Plan: pt with multiple wounds of L foot, L pretibial area and R lateral foot wound care/nurse consulted ortho consulted Await MRI result (4) T2DM (type 2 diabetes mellitus): Plan: a1c 7.3 10/18/20 insulin pump consult glycemic pharmacy for assistance (5) CAD (coronary artery disease): Plan: Denies any acute cardiac symptoms of chest pain and palpitation (6) Ischemic cardiomyopathy: (7) CHF (congestive heart failure): Plan: Patient with mixed diastolic and systolic CHF Last echocardiogram 05/26/2019 showed EF 30 to 35% with large apical, septal, anterior septal wall motion abnormality and akinesis He did have echo 07/2020; however very limited but documented EF Grossly normal daily weights, strict I and O saturating okay on room air pt c/o increased lower ext edema place on lasix IV 20mg BID continue metoprolol, aldactone, KCL hold statin 2/2 to dapto use (8) Hypertension: Plan: Bp stable continue home meds (9) Atrial fibrillation: Plan: rate and rhythm controlled on metoprolol hold warfarin in setting of possible procedure (10) CKD (chronic kidney disease) stage 3, GFR 30-59 ml/min: Plan: Baseline creatinine 1.5-1.7 BUN/creatinine stable at 22 and 1.25 Monitor daily (11) NINA on CPAP: Plan: Bipap at HS (12) Morbid obesity: Plan: BMI 46.4 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 Bilateral chronic skin changes. Both feet are in bandage Physical Exam Physical Exam: Lying in bed with minimal distress Constitutional: well developed, well nourished and + obese; not ill appearing Eyes: PERRL, conjunctivae normal, anicteric sclerae ENMT: external ear and nose normal, oropharynx normal Neck: trachea midline, no thyromegaly Respiratory: no respiratory distress and no cough Auscultation: lungs clear to auscultation bilaterally Cardiovascular: Rate/Rhythm: regular rate and regular rhythm; not tachycardic Heart Sounds: normal S1 and normal S2; no murmur Extremities: + edema (Bilateral leg edema with chronic skin changes) Musculoskeletal: Ulceration involving bilateral feet which are bandaged right now Lymphatic: no cervical or axillary lymphadenopathy Results & Data Results & Data ([facility]) Vital Signs (Past 12 Hours) Vital Signs Temp Pulse Resp BP Pulse Ox 12/14/20 11:48 37.1 C 65 20 119/73 98 12/14/20 08:08 37.0 C 65 18 127/94 96 Laboratory Results Short CBC 12/14/20 Range/Units 07:14 WBC 8.99 (4.8-10.8) K/uL Hgb 10.2 L (14.0-18.0) g/dL Hct 32.1 L (42-52) % Plt Count 371 (130-400) K/uL BMP 12/14/20 07:14 Sodium 137 Potassium 3.6 Chloride 104 Carbon Dioxide 28 BUN 18 Creatinine 1.08 Glucose 154 H Calcium 8.8 Liver Function 12/14/20 Range/Units 07:14 Total Bilirubin 0.5 (0.2-1) mg/dl AST 20 (15-37) U/L ALT 13 (12-78) U/L Alkaline Phosphatase 115 (45-117) U/L Albumin 2.0 L (3.4-5.0) gm/dl Medications Administered Current Inpatient Medications Acetaminophen (Acetaminophen 325 Mg Tab) 650 mg PO Q4H PRN PRN Reason: Pain or Fever Stop: 01/12/21 20:24 Al Hydrox/Mg Hydrox/Simethicone (Aluminum/Magnesium Susp 30 Ml Udc) 15 ml PO Q4H PRN PRN Reason: Dyspepsia Stop: 01/12/21 20:24 Albuterol (Albuterol Hfa 8 Gm Inhaler) 2 puffs INH QID PRN PRN Reason: SHORT OF BREATH Stop: 01/12/21 20:24 Aspirin (Aspirin 81 Mg Ectab) 81 mg PO QAM [facility] Stop: 01/13/21 08:59 Last Admin: 12/14/20 08:19 Dose: 81 mg Documented by: Dextrose (Dextrose 50% 50 Ml Syringe) 25 - 50 ml IV UD PRN; Protocol PRN Reason: Hypoglycemia Protocol Stop: 01/12/21 20:24 Ergocalciferol (Ergocalciferol 50,000 Units 1250 Mcg Cap) 50,000 units PO Tu@0900 [facility] Stop: 01/17/21 08:59 Fluticasone Propionate (Fluticasone Propionate Na Spr 16 Gm Btl) 2 sprays NA BID [facility] Stop: 01/12/21 20:59 Last Admin: 12/14/20 08:20 Dose: 2 sprays Documented by: Fluticasone/Vilanterol (Fluticasone/Vilanterol 200/25mcg 14 Puffs/Inhaler) 1 puffs INH DAILY [facility] Stop: 01/13/21 08:59 Last Admin: 12/14/20 08:20 Dose: 1 puffs Documented by: Gabapentin (Gabapentin 300 Mg Cap) 300 mg PO TID [facility] Stop: 01/12/21 20:59 Last Admin: 12/14/20 15:23 Dose: 300 mg Documented by: Glucagon (Glucagon For Inj 1 Mg Vial) 1 mg SQ UD PRN; Protocol PRN Reason: Hypoglycemia Protocol Stop: 01/12/21 20:24 Glucose (Glucose 10 Tabs/Tube) 4 - 8 tabs PO UD PRN; Protocol PRN Reason: Hypoglycemia Protocol Stop: 01/12/21 20:24 Glucose (Glucose 40% Gel 15 Gm Tube) 15 - 30 gm PO UD PRN; Protocol PRN Reason: Hypoglycemia Protocol Stop: 01/12/21 20:24 Hydromorphone HCl (Hydromorphone Inj 0.5 Mg/0.5 Ml Syr) 0.5 mg IV Q6H PRN PRN Reason: Pain Stop: 12/28/20 04:33 Last Admin: 12/14/20 18:33 Dose: 0.5 mg Documented by: Hyoscyamine (Hyoscyamine Sulfate 0.125 Mg Tab) 0.125 mg PO TID [facility] Stop: 01/12/21 20:59 Last Admin: 12/14/20 15:23 Dose: 0.125 mg Documented by: Furosemide 20 mg/ Syringe 2 mls @ 4 mls/min IV BID17 [facility] Stop: 01/13/21 08:59 Last Admin: 12/14/20 15:50 Dose: 4 mls/min Documented by: Daptomycin 650 mg/ Syringe 13 mls @ 6.5 mls/min IV Q24H [facility]; Protocol Stop: 01/25/21 16:59 Last Admin: 12/14/20 15:50 Dose: 6.5 mls/min Documented by: Piperacillin Sod/Tazobactam (Sod 4.5 gm/ Dextrose) 120 mls @ 30 mls/hr IV Q8H [facility]; Protocol Stop: 01/24/21 21:59 Last Infusion: 12/14/20 19:24 Dose: Infused Documented by: Insulin Aspart (Novolog Insulin Pump) 1 ea N/A ACHS [facility]; Protocol Stop: 01/12/21 20:59 Last Admin: 12/14/20 15:43 Dose: Not Given Documented by: Insulin Aspart (Insulin Aspart 100 Units/Ml Vial) 0 units SC PRN PRN PRN Reason: to replace if needed Stop: 01/12/21 20:59 Lactic Acid (Ammonium Lactate 12% Lotion 225 Gm Btl) 1 gm EXT BID [facility] Stop: 01/12/21 20:59 Last Admin: 12/14/20 08:20 Dose: 1 gm Documented by: Levothyroxine Sodium (Levothyroxine Sodium 88 Mcg Tablet) 88 mcg PO DAILYBB [facility] Stop: 01/13/21 06:29 Last Admin: 12/14/20 06:30 Dose: 88 mcg Documented by: Magnesium Hydroxide (Magnesium Hydroxide Susp 30 Ml Udc) 30 ml PO Q12H PRN PRN Reason: Constipation Stop: 01/12/21 20:24 Magnesium Oxide (Magnesium Oxide 400 Mg Tab) 400 mg PO QAM [facility] Stop: 01/13/21 08:59 Last Admin: 12/14/20 08:19 Dose: 400 mg Documented by: Metoprolol Succinate (Metoprolol Succ 50mg Ext Rel Tab) 50 mg PO BID [facility] Stop: 01/12/21 20:59 Last Admin: 12/14/20 08:19 Dose: 50 mg Documented by: Metoprolol Succinate (Metoprolol Succ 25mg Ext Rel Tab) 25 mg PO BID [facility] Stop: 01/12/21 20:59 Last Admin: 12/14/20 08:19 Dose: 25 mg Documented by: Miscellaneous (Carbohydrates For Hypoglycemia ) 15 - 30 gm PO UD PRN PRN Reason: Hypoglycemia Protocol Stop: 01/12/21 20:24 Miscellaneous Information (Pharmacy Glycemic Mgmt Consult) 1 ea N/A UD PRN; Protocol PRN Reason: Consult Stop: 01/12/21 20:24 Miscellaneous Information (Daptomycin Consult Active) 1 ea N/A UD PRN PRN Reason: Consult Stop: 01/12/21 20:55 Miscellaneous Information (Piperacill/Tazobac Consult Active) 0 ea N/A UD PRN PRN Reason: Consult Stop: 01/12/21 20:24 Ondansetron HCl (Ondansetron Inj 2 Mg/Ml 2 Ml Vial) 4 mg IV Q6H PRN PRN Reason: Nausea Stop: 01/12/21 20:24 Pantoprazole Sodium (Pantoprazole 40 Mg Tab) 40 mg PO QAM [facility] Stop: 01/13/21 08:59 Last Admin: 12/14/20 08:19 Dose: 40 mg Documented by: Polyethylene Glycol (Polyethylene (Miralax) 17 Gm Pack) 17 gm PO DAILY PRN PRN Reason: Constipation Stop: 01/12/21 20:24 Potassium Chloride (Potassium Chloride Crtab 20 Meq Tabcr) 20 meq PO DAILY [facility] Stop: 01/13/21 08:59 Last Admin: 12/14/20 08:19 Dose: 20 meq Documented by: Spironolactone (Spironolactone 25 Mg Tab) 25 mg PO DAILY [facility] Stop: 01/13/21 08:59 Last Admin: 12/14/20 08:20 Dose: 25 mg Documented by:
[2020-12-14] MEDS ORDERED: DAPTOmycin 650 MG in SYRINGE 0 ML IV ONE (17:00)
[2020-12-15] MEDS: HYDROmorphone INJ 0.5 MG/0.5 ML SYR IV PRN ×4 (00:47→19:58)
[2020-12-15] MEDS: PIPERACILLIN/TAZOBACTAM 4.5 GM in DEXTROSE 5% 100 ML IV SCH ×3 (05:49→21:22)
[2020-12-15] MEDS: LEVOTHYROXINE SODIUM 88 MCG TABLET PO SCH (05:52)
[2020-12-15 07:10] LABS: Basophils # (auto) 0.04 K/uL (0-0.2); Basophils % (auto) 0.4 %; Eosinophils # (auto) 0.45 K/uL (0-0.5); Hematocrit (blood only) 29.6 % (42-52); Hemoglobin 9.4 g/dL (14.0-18.0); Immature Granulocytes # (auto) 0.03 K/uL (0.00-0.02); Immature Granulocytes % (auto) 0.3 %; Lymphocytes # (auto) 1.05 K/uL (1.2-3.4); Lymphocytes % (auto) 11.8 %; Mean Corpuscular Hemoglobin 26.6 pg (25-34); Mean Corpuscular Hgb Conc 31.8 g/dL (32-36); Mean Corpuscular Volume 83.9 fL (80-100); Mean Platelet Volume 9.1 fL (7.4-10.4); Monocytes # (auto) 0.87 K/uL (0.11-0.59); Monocytes % (auto) 9.8 %; Neutrophils # (auto) 6.48 K/uL (1.4-6.5); Neutrophils % (auto) 72.7 %; Platelet Count 381 K/uL (130-400); RDW Coefficient of Variation 17.2 % (11.5-14.5); RDW Standard Deviation 52.1 fL (36.4-46.3); Red Blood Count 3.53 M/uL (4.7-6.1); White Blood Count 8.92 K/uL (4.8-10.8)
[2020-12-15 07:32] LABS: BUN Creatinine Ratio 16.9 (10-20); Calcium 8.6 mg/dl (8.5-10.1); Creatinine Clr Calc Pharmacy 116.4 ml/min; Est GFR (African American) 89.9 ml/min; Est GFR (Non-African American) 77.5 ml/min; Magnesium 2.1 mg/dl (1.8-2.4); Potassium 3.8 mmol/L (3.5-5.1)
[2020-12-15 07:34] LABS: Albumin Globulin Ratio 0.4 (0.9-2); Bilirubin,Total 0.6 mg/dl (0.2-1); Globulin 5.6 gm/dl (2.5-4.0); Phosphorus 3.1 mg/dl (2.5-4.9); Total Protein 7.6 gm/dl (6.4-8.2)
[2020-12-15] MEDS: ASPIRIN 81 MG ECTAB PO SCH (08:25)
[2020-12-15] MEDS: MAGNESIUM OXIDE 400 MG TAB PO SCH (08:25)
[2020-12-15] MEDS: METOPROLOL SUCC 50MG EXT REL TAB PO SCH ×2 (08:25→20:32)
[2020-12-15] MEDS: SPIRONOLACTONE 25 MG TAB PO SCH (08:25)
[2020-12-15] MEDS: PANTOprazole 40 MG TAB PO SCH (08:25)
[2020-12-15] MEDS: POTASSIUM CHLORIDE CRTAB 20 MEQ TABCR PO SCH (08:26)
[2020-12-15] MEDS: METOPROLOL SUCC 25MG EXT REL TAB PO SCH ×2 (08:26→20:32)
[2020-12-15] MEDS: FLUTICASONE/VILANTEROL 200/25MCG 14 PUFFS/INHALER INH SCH (08:26)
[2020-12-15] MEDS: GABAPENTIN 300 MG CAP PO SCH ×3 (08:26→20:30)
[2020-12-15] MEDS: FUROSEMIDE 20 MG in SYRINGE 0 ML IV SCH ×2 (08:26→17:18)
[2020-12-15] MEDS: AMMONIUM LACTATE 12% LOTION 225 GM BTL EXT SCH ×2 (08:29→20:28)
[2020-12-15] MEDS: FLUTICASONE PROPIONATE NA SPR 16 GM BTL SCH ×2 (08:33→20:27)
[2020-12-15] MEDS: HYOSCYAMINE SULFATE 0.125 MG TAB PO SCH ×3 (08:33→20:29)
[2020-12-15] MEDS: NovoLOG INSULIN PUMP SCH ×4 (08:58→20:30)
[2020-12-15] MEDS: DICLOFENAC SOD 1% GEL 100 GM TUBE EXT SCH ×2 (12:17→20:26)
--- NOTE | 2020-12-15 15:33 | Hospitalist Progress Note ---
Date of Service December 15, 2020 Assessment & Plan (1) Diabetic infection of left foot: (2) Acute osteomyelitis of left foot: Plan: This is a 55-year-old medically complex male who has significant past medical history of chronic systolic and diastolic CHF, ischemic cardiomyopathy, CAD, history of SVT, AICD placement October 2019, PAF anticoagulated on warfarin, history of DVT on warfarin, HTN, HLD, CKD stage III baseline 1.5-1.7, NINA on BiPAP, asthma, insulin-dependent T2DM, diabetic peripheral neuropathy, hypothyroidism, chronic left nonhealing diabetic foot wound who presents to ED secondary to referral from wound care / to worsening of L foot wound and slu ggish PICC Line. Status post soft tissue debridement of left foot wound and bone biopsy left metatarsal confirming osteomyelitis on 11/23 at [facility]. Per records + Corynebacterium and Enterococcus. Placed on IV Unasyn every 6 hours, unknown compliance and for the past 3 days PICC line has been sluggish. Presents today with worsening of wound and pain. He does not meet criteria for SIRS/sepsis, but does have leukocytosis 12.91, ESR 1 or 2, CRP 13. pt with multiple wounds of L foot and lateral wound to R foot Blood cultures obtained Wound cultures-left foot ulcer is growing Corynebacterium species and Camila albicans with yeast and right foot low counts of mixed iasbel Continue IV Daptomycin and Zosyn started in ED MRI of the left foot did show osteomyelitis Appreciate orthopedic input and recommendation-recommended to have him amputation of the left foot Appreciate ID input and recommendation to continue IV antibiotic for long time and also suggested to have surgery as well Discussed with the patient and he wanted to wait till Dr. Bates comes on Thursday and give him the definitive answer Ongoing back pain Complicated by posture in the hospital bed Will apply Voltaren gel locally twice daily Bilateral feet pain More on the left than the right Has been on Dilaudid intravenously 0.5 mg every 4 hourly as needed (3) Diabetic foot ulcer: Plan: pt with multiple wounds of L foot, L pretibial area and R lateral foot wound care/nurse consulted ortho consulted Await MRI result-as above (4) T2DM (type 2 diabetes mellitus): Plan: a1c 7.3 10/18/20 insulin pump consult glycemic pharmacy for assistance (5) CAD (coronary artery disease): Plan: Denies any acute cardiac symptoms of chest pain and palpitation (6) Ischemic cardiomyopathy: Plan: No acute symptoms (7) CHF (congestive heart failure): Plan: Patient with mixed diastolic and systolic CHF Last echocardiogram 05/26/2019 showed EF 30 to 35% with large apical, septal, anterior septal wall motion abnormality and akinesis He did have echo 07/2020; however very limited but documented EF Grossly normal daily weights, strict I and O saturating okay on room air pt c/o increased lower ext edema place on lasix IV 20mg BID continue metoprolol, aldactone, KCL hold statin 2/2 to dapto use (8) Hypertension: Plan: Bp stable continue home meds (9) Atrial fibrillation: Plan: rate and rhythm controlled on metoprolol hold warfarin in setting of possible procedure (10) CKD (chronic kidney disease) stage 3, GFR 30-59 ml/min: Plan: Baseline creatinine 1.5-1.7 BUN/creatinine stable at 22 and 1.25 Monitor daily (11) NINA on CPAP: Plan: Bipap at HS (12) Morbid obesity: Plan: BMI 46.4 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 DVT ppx: INR therapeutic, warfarin on hold, place on SQ heparin when INR < 2 Dispo: PCU PCP: Francesco FULL CODE Admission and Anticipated Discharge Date Admission Date: December 13, 2020 Subjective 12/14/2020 The patient was seen and examined in the telemetry He is a status post MRI of the feet Denies any significant complaints and awaiting ID evaluation 12/15/2020 The patient was seen and examined in telemetry unit He complains to have pain in the left foot and back He blames the back pain on the bed that he has been on now in the hospital He denies any fever and/or chills Review of Systems Review of Systems: All systems reviewed and unremarkable except as noted below Musculoskeletal: Bilateral foot pain. Bilateral chronic skin changes. Both feet are in bandage Physical Exam Physical Exam: Sitting at the edge of the bed without any acute symptoms Constitutional: well developed, well nourished and + obese; not ill appearing Eyes: PERRL, conjunctivae normal, anicteric sclerae ENMT: external ear and nose normal, oropharynx normal Neck: trachea midline, no thyromegaly Respiratory: no respiratory distress and no cough Auscultation: lungs clear to auscultation bilaterally Cardiovascular: Rate/Rhythm: regular rate and regular rhythm; not tachycardic Heart Sounds: normal S1 and normal S2; no murmur Extremities: + edema (Bilateral leg edema with chronic skin changes) Gastrointestinal (Abdomen): normal bowel sounds, soft, nontender, no hepatosplenomegaly Inspection/Auscultation: + abdomen distended and normal bowel sounds Percussion/Palpation: abdomen soft; abdomen nontender Musculoskeletal: Bilateral foot pain more on the left than the right and low back pain Neurologic: Alert, awake and oriented x3 Lymphatic: no cervical or axillary lymphadenopathy Results & Data Results & Data ([facility]) Vital Signs (Past 12 Hours) Vital Signs Temp Pulse Pulse Resp BP Pulse Ox 12/15/20 12:43 68 12/15/20 12:40 36.8 C 76 18 145/75 H 94 12/15/20 08:01 36.7 C 66 20 118/58 L 92 Laboratory Results Short CBC 12/15/20 Range/Units 06:44 WBC 8.92 (4.8-10.8) K/uL Hgb 9.4 L (14.0-18.0) g/dL Hct 29.6 L (42-52) % Plt Count 381 (130-400) K/uL BMP 12/15/20 06:44 Sodium 138 Potassium 3.8 Chloride 106 Carbon Dioxide 27 BUN 18 Creatinine 1.06 Glucose 139 H Calcium 8.6 Liver Function 12/15/20 Range/Units 06:44 Total Bilirubin 0.6 (0.2-1) mg/dl AST 21 (15-37) U/L ALT 13 (12-78) U/L Alkaline Phosphatase 103 (45-117) U/L Albumin 2.0 L (3.4-5.0) gm/dl Medications Administered Current Inpatient Medications Acetaminophen (Acetaminophen 325 Mg Tab) 650 mg PO Q4H PRN PRN Reason: Pain or Fever Stop: 01/12/21 20:24 Al Hydrox/Mg Hydrox/Simethicone (Aluminum/Magnesium Susp 30 Ml Udc) 15 ml PO Q4H PRN PRN Reason: Dyspepsia Stop: 01/12/21 20:24 Albuterol (Albuterol Hfa 8 Gm Inhaler) 2 puffs INH QID PRN PRN Reason: SHORT OF BREATH Stop: 01/12/21 20:24 Aspirin (Aspirin 81 Mg Ectab) 81 mg PO QAM [facility] Stop: 01/13/21 08:59 Last Admin: 12/15/20 08:25 Dose: 81 mg Documented by: Dextrose (Dextrose 50% 50 Ml Syringe) 25 - 50 ml IV UD PRN; Protocol PRN Reason: Hypoglycemia Protocol Stop: 01/12/21 20:24 Diclofenac Sodium (Diclofenac Sod 1% Gel 100 Gm Tube) 4 gm EXT BID [facility] Stop: 01/14/21 11:14 Last Admin: 12/15/20 12:17 Dose: 4 gm Documented by: Ergocalciferol (Ergocalciferol 50,000 Units 1250 Mcg Cap) 50,000 units PO Tu@0900 [facility] Stop: 01/17/21 08:59 Fluticasone Propionate (Fluticasone Propionate Na Spr 16 Gm Btl) 2 sprays NA BID [facility] Stop: 01/12/21 20:59 Last Admin: 12/15/20 08:33 Dose: 2 sprays Documented by: Fluticasone/Vilanterol (Fluticasone/Vilanterol 200/25mcg 14 Puffs/Inhaler) 1 puffs INH DAILY [facility] Stop: 01/13/21 08:59 Last Admin: 12/15/20 08:26 Dose: 1 puffs Documented by: Gabapentin (Gabapentin 300 Mg Cap) 300 mg PO TID [facility] Stop: 01/12/21 20:59 Last Admin: 12/15/20 13:17 Dose: 300 mg Documented by: Glucagon (Glucagon For Inj 1 Mg Vial) 1 mg SQ UD PRN; Protocol PRN Reason: Hypoglycemia Protocol Stop: 01/12/21 20:24 Glucose (Glucose 10 Tabs/Tube) 4 - 8 tabs PO UD PRN; Protocol PRN Reason: Hypoglycemia Protocol Stop: 01/12/21 20:24 Glucose (Glucose 40% Gel 15 Gm Tube) 15 - 30 gm PO UD PRN; Protocol PRN Reason: Hypoglycemia Protocol Stop: 01/12/21 20:24 Heparin Sodium (Beef Lung) (Heparin 10 Unit/Ml 5 Ml Flush) 5 ml FLUSH PRN PRN PRN Reason: Flush Stop: 01/13/21 23:54 Last Admin: 12/15/20 12:21 Dose: 5 ml Documented by: Hydromorphone HCl (Hydromorphone Inj 0.5 Mg/0.5 Ml Syr) 0.5 mg IV Q4H PRN PRN Reason: Pain Stop: 12/28/20 04:33 Last Admin: 12/15/20 12:20 Dose: 0.5 mg Documented by: Hyoscyamine (Hyoscyamine Sulfate 0.125 Mg Tab) 0.125 mg PO TID [facility] Stop: 01/12/21 20:59 Last Admin: 12/15/20 13:20 Dose: 0.125 mg Documented by: Furosemide 20 mg/ Syringe 2 mls @ 4 mls/min IV BID17 [facility] Stop: 01/13/21 08:59 Last Admin: 12/15/20 08:26 Dose: 4 mls/min Documented by: Daptomycin 650 mg/ Syringe 13 mls @ 6.5 mls/min IV Q24H [facility]; Protocol Stop: 01/25/21 16:59 Last Admin: 12/14/20 15:50 Dose: 6.5 mls/min Documented by: Piperacillin Sod/Tazobactam (Sod 4.5 gm/ Dextrose) 120 mls @ 30 mls/hr IV Q8H [facility]; Protocol Stop: 01/24/21 21:59 Last Admin: 12/15/20 13:17 Dose: 30 mls/hr Documented by: Insulin Aspart (Novolog Insulin Pump) 1 ea N/A [facility]; Protocol Stop: 01/12/21 20:59 Last Admin: 12/15/20 12:24 Dose: 1 ea Documented by: Insulin Aspart (Insulin Aspart 100 Units/Ml Vial) 0 units SC PRN PRN PRN Reason: to replace if needed Stop: 01/12/21 20:59 Lactic Acid (Ammonium Lactate 12% Lotion 225 Gm Btl) 1 gm EXT BID [facility] Stop: 01/12/21 20:59 Last Admin: 12/15/20 08:29 Dose: 1 gm Documented by: Levothyroxine Sodium (Levothyroxine Sodium 88 Mcg Tablet) 88 mcg PO DAILYBB [facility] Stop: 01/13/21 06:29 Last Admin: 12/15/20 05:52 Dose: 88 mcg Documented by: Magnesium Hydroxide (Magnesium Hydroxide Susp 30 Ml Udc) 30 ml PO Q12H PRN PRN Reason: Constipation Stop: 01/12/21 20:24 Magnesium Oxide (Magnesium Oxide 400 Mg Tab) 400 mg PO QAM [facility] Stop: 01/13/21 08:59 Last Admin: 12/15/20 08:25 Dose: 400 mg Documented by: Metoprolol Succinate (Metoprolol Succ 50mg Ext Rel Tab) 50 mg PO BID [facility] Stop: 01/12/21 20:59 Last Admin: 12/15/20 08:25 Dose: 50 mg Documented by: Metoprolol Succinate (Metoprolol Succ 25mg Ext Rel Tab) 25 mg PO BID [facility] Stop: 01/12/21 20:59 Last Admin: 12/15/20 08:26 Dose: 25 mg Documented by: Miscellaneous (Carbohydrates For Hypoglycemia ) 15 - 30 gm PO UD PRN PRN Reason: Hypoglycemia Protocol Stop: 01/12/21 20:24 Miscellaneous Information (Pharmacy Glycemic Mgmt Consult) 1 ea N/A UD PRN; Protocol PRN Reason: Consult Stop: 01/12/21 20:24 Miscellaneous Information (Daptomycin Consult Active) 1 ea N/A UD PRN PRN Reason: Consult Stop: 01/12/21 20:55 Miscellaneous Information (Piperacill/Tazobac Consult Active) 0 ea N/A UD PRN PRN Reason: Consult Stop: 01/12/21 20:24 Ondansetron HCl (Ondansetron Inj 2 Mg/Ml 2 Ml Vial) 4 mg IV Q6H PRN PRN Reason: Nausea Stop: 01/12/21 20:24 Pantoprazole Sodium (Pantoprazole 40 Mg Tab) 40 mg PO [facility] Stop: 01/13/21 08:59 Last Admin: 12/15/20 08:25 Dose: 40 mg Documented by: Polyethylene Glycol (Polyethylene (Miralax) 17 Gm Pack) 17 gm PO DAILY PRN PRN Reason: Constipation Stop: 01/12/21 20:24 Potassium Chloride (Potassium Chloride Crtab 20 Meq Tabcr) 20 meq PO DAILY [facility] Stop: 01/13/21 08:59 Last Admin: 12/15/20 08:26 Dose: 20 meq Documented by: Spironolactone (Spironolactone 25 Mg Tab) 25 mg PO DAILY [facility] Stop: 01/13/21 08:59 Last Admin: 12/15/20 08:25 Dose: 25 mg Documented by:
[2020-12-15] MEDS: FLUCONAZOLE 200 MG/100 ML BAG IV SCH (17:17)
[2020-12-15] MEDS: DAPTOmycin 650 MG in SYRINGE 0 ML IV SCH (17:19)
[2020-12-16] MEDS: HYDROmorphone INJ 0.5 MG/0.5 ML SYR IV PRN ×5 (00:05→19:13)
[2020-12-16] MEDS: PIPERACILLIN/TAZOBACTAM 4.5 GM in DEXTROSE 5% 100 ML IV SCH ×3 (05:50→21:22)
[2020-12-16] MEDS: LEVOTHYROXINE SODIUM 88 MCG TABLET PO SCH (05:50)
[2020-12-16 06:26] LABS: BUN Creatinine Ratio 13.7 (10-20); Calcium 8.6 mg/dl (8.5-10.1); Creatinine Clr Calc Pharmacy 110.1 ml/min; Est GFR (African American) 84.1 ml/min; Est GFR (Non-African American) 72.5 ml/min; Potassium 3.9 mmol/L (3.5-5.1)
[2020-12-16 06:29] LABS: Albumin Globulin Ratio 0.4 (0.9-2); Bilirubin,Total 0.4 mg/dl (0.2-1); Globulin 5.6 gm/dl (2.5-4.0); Total Protein 7.6 gm/dl (6.4-8.2)
[2020-12-16] MEDS: PANTOprazole 40 MG TAB PO SCH (08:37)
[2020-12-16] MEDS: GABAPENTIN 300 MG CAP PO SCH ×3 (08:37→20:20)
[2020-12-16] MEDS: METOPROLOL SUCC 25MG EXT REL TAB PO SCH ×2 (08:37→20:20)
[2020-12-16] MEDS: SPIRONOLACTONE 25 MG TAB PO SCH (08:37)
[2020-12-16] MEDS: METOPROLOL SUCC 50MG EXT REL TAB PO SCH ×2 (08:37→20:20)
[2020-12-16] MEDS: HYOSCYAMINE SULFATE 0.125 MG TAB PO SCH ×3 (08:37→20:21)
[2020-12-16] MEDS: FUROSEMIDE 20 MG in SYRINGE 0 ML IV SCH ×2 (08:37→17:24)
[2020-12-16] MEDS: ASPIRIN 81 MG ECTAB PO SCH (08:38)
[2020-12-16] MEDS: POTASSIUM CHLORIDE CRTAB 20 MEQ TABCR PO SCH (08:38)
[2020-12-16] MEDS: MAGNESIUM OXIDE 400 MG TAB PO SCH (08:38)
[2020-12-16] MEDS: FLUTICASONE/VILANTEROL 200/25MCG 14 PUFFS/INHALER INH SCH (08:38)
[2020-12-16] MEDS: AMMONIUM LACTATE 12% LOTION 225 GM BTL EXT SCH ×2 (08:38→20:18)
[2020-12-16] MEDS: DICLOFENAC SOD 1% GEL 100 GM TUBE EXT SCH ×2 (08:38→20:19)
[2020-12-16] MEDS: FLUTICASONE PROPIONATE NA SPR 16 GM BTL SCH ×2 (08:39→20:21)
[2020-12-16] MEDS: NovoLOG INSULIN PUMP SCH (09:14)
[2020-12-16] MEDS: INSULIN GLARGINE SOLOSTAR 100 UNITS/ML 3 ML PEN SC SCH (10:15)
[2020-12-16] MEDS: INSULIN ASPART 100 UNITS/ML 3 ML PEN SC SCH ×4 (10:16→20:28)
--- NOTE | 2020-12-16 13:19 | Pharmacy Report ---
Pharmacy Glycemic Short Note 2 - Date of Service December 16, 2020 - Glycemic Short BSG Results (Last 24 hours): 12/15/20 12/15/20 12/16/20 16:11 20:14 05:44 Glucose 113 H POC Glucose 137 H 111 H 12/16/20 12/16/20 07:21 11:26 Glucose POC Glucose 108 H 317 H* OUTPATIENT ANTIDIABETIC REGIMEN: * Insulin pump - 2 units/hr ; CF 20, CR 4 * A1c 8.5% ASSESSMENT: 12/16 * RN notified pharmacy that patient's pump "" this morning and he is unable to charge it. No family members able to bring him the necessary supplies. Pt requested change from pump to SQ basal bolus. * Pt known to pharmacy from previous admissions/glycemic consults. Will change to SQ basal bolus based on previous admissions and current insulin pump data. * Pre-lunch BSG is elevated because breakfast insulin coverage delayed. Will not make any changes to insulin orders in response to this hyperglycemic event 12/14 * 55 year old admitted with L foot osteo, type 2 diabetic managed on insulin pump at home. Known to glycemic service from other admissions. Typically does very well on insulin pump while hospitalized. Prior admissions he has managed himself on pump while NPO/diet and did well * Spoke with patient today and he would like to continue with insulin pump. He feels comfortable adjusting pump as he is NPO this morning * Patient aware that if blood sugars become unstable, we may need to take off pump PLAN FOR INPATIENT GLYCEMIC CONTROL: * Stop insulin pump * Basal insulin * Lantus 55 units SQ Q24hrs - will try to keep Q24hr dosing for easier transition back to pump * Bolus insulin * NovoLog per scale ACHS * Goal range 110-140 mg/dl * CF= 10 mg/dl/unit * CR = 1 unit for every 4g CHO consumed
--- NOTE | 2020-12-16 16:11 | Hospitalist Progress Note ---
Date of Service December 16, 2020 Assessment & Plan (1) Diabetic infection of left foot: (2) Acute osteomyelitis of left foot: Plan: This is a 55-year-old medically complex male who has significant past medical history of chronic systolic and diastolic CHF, ischemic cardiomyopathy, CAD, history of SVT, AICD placement October 2019, PAF anticoagulated on warfarin, history of DVT on warfarin, HTN, HLD, CKD stage III baseline 1.5-1.7, NINA on BiPAP, asthma, insulin-dependent T2DM, diabetic peripheral neuropathy, hypothyroidism, chronic left nonhealing diabetic foot wound who presents to ED secondary to referral from wound care / to worsening of L foot wound and slu ggish PICC Line. Status post soft tissue debridement of left foot wound and bone biopsy left metatarsal confirming osteomyelitis on 11/23 at [facility]. Per records + Corynebacterium and Enterococcus. Placed on IV Unasyn every 6 hours, unknown compliance and for the past 3 days PICC line has been sluggish. Presents today with worsening of wound and pain. He does not meet criteria for SIRS/sepsis, but does have leukocytosis 12.91, ESR 1 or 2, CRP 13. pt with multiple wounds of L foot and lateral wound to R foot Blood cultures -negative Wound cultures-left foot ulcer is growing Corynebacterium species and Camila albicans/dubliniensis with yeast and right foot low counts of mixed isabel Continue IV Daptomycin and Zosyn -started in ED MRI of the left foot did show osteomyelitis Appreciate orthopedic input and recommendation-recommended to have him amputation of the left foot Appreciate ID input and recommendation to continue IV antibiotic for long time and also suggested to have surgery as well Discussed with the patient and he wanted to wait till Dr. Bates comes on Thursday and give him the definitive answer Fluconazole was added since yesterday to cover fungal species and will discuss with the ID whether to continue the antifungal or not Clinically remains stable and awaiting Dr. Callejas input tomorrow Ongoing back pain Complicated by posture in the hospital bed Will apply Voltaren gel locally twice daily Back pain is better Bilateral feet pain More on the left than the right Has been on Dilaudid intravenously 0.5 mg every 4 hourly as needed With a change in the doses of Dilaudid for pain is better (3) Diabetic foot ulcer: Plan: pt with multiple wounds of L foot, L pretibial area and R lateral foot wound care/nurse consulted ortho consulted Await MRI result-as above (4) T2DM (type 2 diabetes mellitus): Plan: a1c 7.3 10/18/20 insulin pump consult glycemic pharmacy for assistance (5) CAD (coronary artery disease): Plan: Denies any acute cardiac symptoms of chest pain and palpitation (6) Ischemic cardiomyopathy: Plan: No acute symptoms Has AICD in situ (7) CHF (congestive heart failure): Plan: Patient with mixed diastolic and systolic CHF Last echocardiogram 05/26/2019 showed EF 30 to 35% with large apical, septal, anterior septal wall motion abnormality and akinesis He did have echo 07/2020; however very limited but documented EF Grossly normal daily weights, strict I and O saturating okay on room air pt c/o increased lower ext edema place on lasix IV 20mg BID continue metoprolol, aldactone, KCL hold statin 2/2 to dapto use (8) Hypertension: Plan: Bp stable continue home meds (9) Atrial fibrillation: Plan: rate and rhythm controlled on metoprolol hold warfarin in setting of possible procedure (10) CKD (chronic kidney disease) stage 3, GFR 30-59 ml/min: Plan: Baseline creatinine 1.5-1.7 BUN/creatinine stable at 22 and 1.25 Monitor daily (11) NINA on CPAP: Plan: Bipap at HS (12) Morbid obesity: Plan: 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 46.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 DVT ppx: INR therapeutic, warfarin on hold, place on SQ heparin when INR < 2 Dispo: PCU PCP: Francesco FULL CODE Admission and Anticipated Discharge Date Admission Date: December 13, 2020 Subjective 12/14/2020 The patient was seen and examined in the telemetry He is a status post MRI of the feet Denies any significant complaints and awaiting ID evaluation 12/15/2020 The patient was seen and examined in telemetry unit He complains to have pain in the left foot and back He blames the back pain on the bed that he has been on now in the hospital He denies any fever and/or chills 12/16/2020 The patient was seen and examined in telemetry unit His pain is controlled with intravenous doses of Dilaudid Denies any other acute symptoms No fever and/or chills Review of Systems Review of Systems: All systems reviewed and unremarkable except as noted below Musculoskeletal: Bilateral foot pain. Bilateral chronic skin changes. Both feet are in bandage Physical Exam Physical Exam: Sitting at the edge of the bed without any acute symptoms Constitutional: well developed, well nourished and + obese; not ill appearing Eyes: PERRL, conjunctivae normal, anicteric sclerae ENMT: external ear and nose normal, oropharynx normal Neck: trachea midline, no thyromegaly Respiratory: no respiratory distress and no cough Auscultation: lungs clear to auscultation bilaterally Cardiovascular: Rate/Rhythm: regular rate and regular rhythm; not tachycardic Heart Sounds: normal S1 and normal S2; no murmur Extremities: + edema (Bilateral leg edema with chronic skin changes) Gastrointestinal (Abdomen): normal bowel sounds, soft, nontender, no hepatosplenomegaly Inspection/Auscultation: + abdomen distended and normal bowel sounds Percussion/Palpation: abdomen soft; abdomen nontender Musculoskeletal: Ankle: no deformity Both the feet and adjoining area of the ankle are bandaged. Chronic edema with chronic skin changes involving both the legs with amputation a few digits on either side Skin: Chronic dusky skin discoloration involving both the legs with chronic edema Neurologic: Alert, awake and oriented x3' generally weak and lethargic Psychiatric: A+Ox3, euthymic affect Lymphatic: no cervical or axillary lymphadenopathy Results & Data Results & Data ([facility]) Vital Signs (Past 12 Hours) Vital Signs Temp Pulse Pulse Resp BP Pulse Ox 12/16/20 15:57 61 12/16/20 15:45 36.6 C 62 22 134/78 96 12/16/20 11:56 36.4 C L 66 20 126/70 96 12/16/20 08:13 36.7 C 69 20 111/67 97 [place] [facility] [place]/16/20 05:44 Sodium 140 Potassium 3.9 Chloride 105 Carbon Dioxide 27 BUN 15 Creatinine 1.12 Glucose 113 H Calcium 8.6 Cardiac Enzymes 12/16/20 Range/Units 05:44 Total Creatine Kinase 37 L (39-308) U/L Liver Function 12/16/20 Range/Units 05:44 Total Bilirubin 0.4 (0.2-1) mg/dl AST 24 (15-37) U/L ALT 14 (12-78) U/L Alkaline Phosphatase 108 (45-117) U/L Albumin 2.0 L (3.4-5.0) gm/dl Medications Administered Current Inpatient Medications Acetaminophen (Acetaminophen 325 Mg Tab) 650 mg PO Q4H PRN PRN Reason: Pain or Fever Stop: 01/12/21 20:24 Al Hydrox/Mg Hydrox/Simethicone (Aluminum/Magnesium Susp 30 Ml Udc) 15 ml PO Q4H PRN PRN Reason: Dyspepsia Stop: 01/12/21 20:24 Albuterol (Albuterol Hfa 8 Gm Inhaler) 2 puffs INH QID PRN PRN Reason: SHORT OF BREATH Stop: 01/12/21 20:24 Aspirin (Aspirin 81 Mg Ectab) 81 mg PO QAM [facility] Stop: 01/13/21 08:59 Last Admin: 12/16/20 08:38 Dose: 81 mg Documented by: Dextrose (Dextrose 50% 50 Ml Syringe) 25 - 50 ml IV UD PRN; Protocol PRN Reason: Hypoglycemia Protocol Stop: 01/12/21 20:24 Diclofenac Sodium (Diclofenac Sod 1% Gel 100 Gm Tube) 4 gm EXT BID [facility] Stop: 01/14/21 11:14 Last Admin: 12/16/20 08:38 Dose: 4 gm Documented by: Ergocalciferol (Ergocalciferol 50,000 Units 1250 Mcg Cap) 50,000 units PO Tu@0900 [facility] Stop: 01/17/21 08:59 Fluticasone Propionate (Fluticasone Propionate Na Spr 16 Gm Btl) 2 sprays NA BID [facility] Stop: 01/12/21 20:59 Last Admin: 12/16/20 08:39 Dose: 2 sprays Documented by: Fluticasone/Vilanterol (Fluticasone/Vilanterol 200/25mcg 14 Puffs/Inhaler) 1 puffs INH DAILY [facility] Stop: 01/13/21 08:59 Last Admin: 12/16/20 08:38 Dose: 1 puffs Documented by: Gabapentin (Gabapentin 300 Mg Cap) 300 mg PO TID [facility] Stop: 01/12/21 20:59 Last Admin: 12/16/20 13:24 Dose: 300 mg Documented by: Glucagon (Glucagon For Inj 1 Mg Vial) 1 mg SQ UD PRN; Protocol PRN Reason: Hypoglycemia Protocol Stop: 01/12/21 20:24 Glucose (Glucose 10 Tabs/Tube) 4 - 8 tabs PO UD PRN; Protocol PRN Reason: Hypoglycemia Protocol Stop: 01/12/21 20:24 Glucose (Glucose 40% Gel 15 Gm Tube) 15 - 30 gm PO UD PRN; Protocol PRN Reason: Hypoglycemia Protocol Stop: 01/12/21 20:24 Heparin Sodium (Beef Lung) (Heparin 10 Unit/Ml 5 Ml Flush) 5 ml FLUSH PRN PRN PRN Reason: Flush Stop: 01/13/21 23:54 Last Admin: 12/15/20 12:21 Dose: 5 ml Documented by: Hydromorphone HCl (Hydromorphone Inj 0.5 Mg/0.5 Ml Syr) 0.5 mg IV Q4H PRN PRN Reason: Pain Stop: 12/28/20 04:33 Last Admin: 12/16/20 12:12 Dose: 0.5 mg Documented by: Hyoscyamine (Hyoscyamine Sulfate 0.125 Mg Tab) 0.125 mg PO TID [facility] Stop: 01/12/21 20:59 Last Admin: 12/16/20 13:24 Dose: 0.125 mg Documented by: Furosemide 20 mg/ Syringe 2 mls @ 4 mls/min IV [id number] [facility] Stop: 01/13/21 08:59 Last Admin: 12/16/20 08:37 Dose: 4 mls/min Documented by: Daptomycin 650 mg/ Syringe 13 mls @ 6.5 mls/min IV Q24H [facility]; Protocol Stop: 01/25/21 16:59 Last Admin: 12/15/20 17:19 Dose: 6.5 mls/min Documented by: Piperacillin Sod/Tazobactam (Sod 4.5 gm/ Dextrose) 120 mls @ 30 mls/hr IV Q8H [facility]; Protocol Stop: 01/24/21 21:59 Last Admin: 12/16/20 13:24 Dose: 30 mls/hr Documented by: Fluconazole (Diflucan) 200 mg in 100 mls @ 100 mls/hr IV 1700 [facility] Stop: 12/17/20 16:59 Last Infusion: 12/15/20 18:21 Dose: Infused Documented by: Insulin Aspart (Insulin Aspart 100 Units/Ml 3 Ml Pen) 0 units SC ACHS [facility] Stop: 01/15/21 08:59 Last Admin: 12/16/20 12:06 Dose: 37 units Documented by: Insulin Glargine (Insulin Glargine Solostar 100 Units/Ml 3 Ml Pen) 55 units SC DAILY [facility] Stop: 01/15/21 08:59 Last Admin: 12/16/20 10:15 Dose: 55 units Documented by: Lactic Acid (Ammonium Lactate 12% Lotion 225 Gm Btl) 1 gm EXT BID [facility] Stop: 01/12/21 20:59 Last Admin: 12/16/20 08:38 Dose: 1 gm Documented by: Levothyroxine Sodium (Levothyroxine Sodium 88 Mcg Tablet) 88 mcg PO DAILYBB [facility] Stop: 01/13/21 06:29 Last Admin: 12/16/20 05:50 Dose: 88 mcg Documented by: Magnesium Hydroxide (Magnesium Hydroxide Susp 30 Ml Udc) 30 ml PO Q12H PRN PRN Reason: Constipation Stop: 01/12/21 20:24 Magnesium Oxide (Magnesium Oxide 400 Mg Tab) 400 mg PO QAM [facility] Stop: 01/13/21 08:59 Last Admin: 12/16/20 08:38 Dose: 400 mg Documented by: Metoprolol Succinate (Metoprolol Succ 50mg Ext Rel Tab) 50 mg PO BID [facility] Stop: 01/12/21 20:59 Last Admin: 12/16/20 08:37 Dose: 50 mg Documented by: Metoprolol Succinate (Metoprolol Succ 25mg Ext Rel Tab) 25 mg PO BID [facility] Stop: 01/12/21 20:59 Last Admin: 12/16/20 08:37 Dose: 25 mg Documented by: Miscellaneous (Carbohydrates For Hypoglycemia ) 15 - 30 gm PO UD PRN PRN Reason: Hypoglycemia Protocol Stop: 01/12/21 20:24 Miscellaneous Information (Pharmacy Glycemic Mgmt Consult) 1 ea N/A UD PRN; Protocol PRN Reason: Consult Stop: 01/12/21 20:24 Miscellaneous Information (Daptomycin Consult Active) 1 ea N/A UD PRN PRN Reason: Consult Stop: 01/12/21 20:55 Miscellaneous Information (Piperacill/Tazobac Consult Active) 0 ea N/A UD PRN PRN Reason: Consult Stop: 01/12/21 20:24 Ondansetron HCl (Ondansetron Inj 2 Mg/Ml 2 Ml Vial) 4 mg IV Q6H PRN PRN Reason: Nausea Stop: 01/12/21 20:24 Pantoprazole Sodium (Pantoprazole 40 Mg Tab) 40 mg PO QAM [facility] Stop: 01/13/21 08:59 Last Admin: 12/16/20 08:37 Dose: 40 mg Documented by: Polyethylene Glycol (Polyethylene (Miralax) 17 Gm Pack) 17 gm PO DAILY PRN PRN Reason: Constipation Stop: 01/12/21 20:24 Potassium Chloride (Potassium Chloride Crtab 20 Meq Tabcr) 20 meq PO DAILY [facility] Stop: 01/13/21 08:59 Last Admin: 12/16/20 08:38 Dose: 20 meq Documented by: Spironolactone (Spironolactone 25 Mg Tab) 25 mg PO DAILY [facility] Stop: 01/13/21 08:59 Last Admin: 12/16/20 08:37 Dose: 25 mg Documented by:
[2020-12-16] MEDS: FLUCONAZOLE 200 MG/100 ML BAG IV SCH (17:24)
[2020-12-16] MEDS: DAPTOmycin 650 MG in SYRINGE 0 ML IV SCH (17:26)
[2020-12-17] MEDS: HYDROmorphone INJ 0.5 MG/0.5 ML SYR IV PRN ×5 (00:38→20:36)
[2020-12-17] MEDS: PIPERACILLIN/TAZOBACTAM 4.5 GM in DEXTROSE 5% 100 ML IV SCH ×3 (05:29→21:23)
[2020-12-17] MEDS: LEVOTHYROXINE SODIUM 88 MCG TABLET PO SCH (05:30)
[2020-12-17 05:57] LABS: Basophils # (auto) 0.05 K/uL (0-0.2); Basophils % (auto) 0.6 %; Eosinophils # (auto) 0.66 K/uL (0-0.5); Hematocrit (blood only) 31.4 % (42-52); Hemoglobin 9.6 g/dL (14.0-18.0); Immature Granulocytes # (auto) 0.04 K/uL (0.00-0.02); Immature Granulocytes % (auto) 0.5 %; Lymphocytes # (auto) 1.02 K/uL (1.2-3.4); Lymphocytes % (auto) 12.4 %; Mean Corpuscular Hemoglobin 26.4 pg (25-34); Mean Corpuscular Hgb Conc 30.6 g/dL (32-36); Mean Corpuscular Volume 86.3 fL (80-100); Mean Platelet Volume 9.7 fL (7.4-10.4); Monocytes # (auto) 0.57 K/uL (0.11-0.59); Monocytes % (auto) 6.9 %; Neutrophils # (auto) 5.88 K/uL (1.4-6.5); Neutrophils % (auto) 71.6 %; Platelet Count 346 K/uL (130-400); RDW Coefficient of Variation 17.1 % (11.5-14.5); RDW Standard Deviation 54.1 fL (36.4-46.3); Red Blood Count 3.64 M/uL (4.7-6.1); White Blood Count 8.22 K/uL (4.8-10.8)
[2020-12-17 06:33] LABS: BUN Creatinine Ratio 13.1 (10-20); Calcium 8.4 mg/dl (8.5-10.1); Creatinine Clr Calc Pharmacy 111.9 ml/min; Est GFR (African American) 86.9 ml/min; Est GFR (Non-African American) 74.9 ml/min; Magnesium 2.1 mg/dl (1.8-2.4); Phosphorus 2.7 mg/dl (2.5-4.9); Potassium 3.8 mmol/L (3.5-5.1)
[2020-12-17] MEDS: INSULIN ASPART 100 UNITS/ML 3 ML PEN SC SCH ×4 (08:06→20:40)
[2020-12-17] MEDS: INSULIN GLARGINE SOLOSTAR 100 UNITS/ML 3 ML PEN SC SCH (08:07)
[2020-12-17] MEDS: FUROSEMIDE 20 MG in SYRINGE 0 ML IV SCH ×2 (08:13→16:45)
[2020-12-17] MEDS: POTASSIUM CHLORIDE CRTAB 20 MEQ TABCR PO SCH (08:13)
[2020-12-17] MEDS: GABAPENTIN 300 MG CAP PO SCH ×3 (08:14→20:18)
[2020-12-17] MEDS: PANTOprazole 40 MG TAB PO SCH (08:14)
[2020-12-17] MEDS: ASPIRIN 81 MG ECTAB PO SCH (08:15)
[2020-12-17] MEDS: SPIRONOLACTONE 25 MG TAB PO SCH (08:15)
[2020-12-17] MEDS: MAGNESIUM OXIDE 400 MG TAB PO SCH (08:15)
[2020-12-17] MEDS: METOPROLOL SUCC 25MG EXT REL TAB PO SCH ×2 (08:15→20:20)
[2020-12-17] MEDS: METOPROLOL SUCC 50MG EXT REL TAB PO SCH ×2 (08:15→20:20)
[2020-12-17] MEDS: FLUTICASONE/VILANTEROL 200/25MCG 14 PUFFS/INHALER INH SCH (08:16)
[2020-12-17] MEDS: HYOSCYAMINE SULFATE 0.125 MG TAB PO SCH ×3 (08:16→20:19)
[2020-12-17] MEDS: FLUTICASONE PROPIONATE NA SPR 16 GM BTL SCH ×2 (08:17→20:18)
[2020-12-17] MEDS: DICLOFENAC SOD 1% GEL 100 GM TUBE EXT SCH ×2 (08:17→20:18)
[2020-12-17] MEDS: AMMONIUM LACTATE 12% LOTION 225 GM BTL EXT SCH ×2 (09:11→20:23)
--- NOTE | 2020-12-17 15:54 | Psychiatric Consultation ---
Date of Consultation December 17, 2020 Impression / Recommendations Impression This is a 55-year-old male with significant medical problems now recently complicated by infection in foot which will likely require surgery and amputation. Patient is denying any need for any antidepressant medications but is agreeable to try Ativan to address his anxiety. However this should be done cautiously as patient is taking opiates and is obese with impaired breathing. Patient will also benefit once he is more certain about his treatment options and functional status following surgery. (1) Anxiety: Patient is already receiving pain medications which may help with his anxiety while in the hospital. In the case he continues to be anxious, psychiatry will recommend Ativan 0.25 mg every 6 hours as needed anxiety, only while in the hospital. Psych History Chief Complaint "I have no idea what is going on and I would like to know". History of Present Illness HPI as per psychiatric liaison "Attempted to see patient, however he was reluctant to engage. Poor eye contact, deleting messages from his email. Patient is a 55 year old male from [place] who currently lives alone. He is going through a divorce and states he has no supports. He does have 2 daughters, but would not discuss if he had other children. Patient is disabled, but had worked for [employer]. When discussing activities, he states he has not been able to enjoy anything for months, has been depressed every day, has no energy and has trouble sleeping for over 25 years. Patient scored a 15 on the PHQ9, however denies any suicidal thoughts or plans. Denies any substance or alcohol use. Denies any family hx of substances, alcohol or psychiatric illness. Denies any trial of mediations for depression or sleep. Patient does see a therapist, Darell Hernandez, however he does not know where she is from and states he sees her via zoom, with his next appointment being tomorrow at 1 pm. He has only been seeing her therapist for 2 months." Upon evaluation this afternoon, patient was somewhat irritable but cooperative enough to participate in interview. Answered questions very shortly however and continued to deny any issues with depression or mood. He did acknowledge that the severity of his medical problems was somewhat overwhelming and that he is anxious regarding the potential treatment opportunities. Furthermore patient stated that the uncertainty of his condition was contributing to his poor mood. He reports having tried SSRI medications in the past, but states that they have never worked for him and is unwilling to try any more long-term antidepressant medications at this time. He is agreeable to try Ativan for his anxiety. Allergies Allergy/AdvReac Type Severity Reaction Status Date / Time benzonatate AdvReac Intermediate choking, Verified 12/13/20 19:37 gagging Home Medications Medication Instructions Recorded Confirmed Type fluticasone propionate 50 2 sprays INTNAS BID gm 12/21/17 12/13/20 History mcg/actuation nasal spray,suspension (Flonase Allergy Relief) magnesium oxide 400 mg PO QAM cap 12/21/17 12/13/20 History mometasone-formoterol HFA 200 2 puffs INH BID 12/21/17 12/13/20 History mcg-5 mcg/actuation aerosol inhaler (Dulera) nitroglycerin 0.4 mg sublingual 0.4 mg SL Q5M PRN 12/21/17 12/13/20 History tablet omeprazole 20 mg capsule,delayed 20 mg PO QAM 12/21/17 12/13/20 History release tramadol 50 mg tablet 50 mg PO Q6H PRN 12/21/17 12/13/20 History ergocalciferol (vitamin D2) 62.5 50,000 unit PO WK 04/12/19 12/13/20 History mcg (2,500 unit) capsule gabapentin 300 mg capsule 300 mg PO TID 04/12/19 12/13/20 History hyoscyamine sulfate 0.125 mg 0.125 mg PO TID 04/12/19 12/13/20 History tablet (Levsin) atorvastatin 80 mg tablet 80 mg PO HS 01/18/20 12/13/20 History clobetasol 0.05 % topical cream 1 applic TOPICAL BID 01/18/20 12/13/20 History blood-glucose meter (OneTouch #1 ea 02/21/20 12/13/20 Rx Verio Flex meter) albuterol sulfate 90 mcg/actuation 2 puff INHALATION QID PRN 05/30/20 12/13/20 History aerosol inhaler (Ventolin HFA) aspirin 81 mg tablet,delayed 81 mg PO QAM 06/12/20 12/13/20 History release warfarin 1 mg tablet 3 mg PO SUTH 07/12/20 12/13/20 History ammonium lactate 5 % lotion 1 applic TOPICAL DAILY PRN 04/21/21 08/19/21 History (Lac-Hydrin Five) potassium chloride 20 mEq 20 meq PO DAILY #30 tab 08/23/20 12/13/20 Rx tablet,extended release insulin aspart U-100 100 unit/mL See Rx Instructions CONTINUOUS 11/01/20 12/13/20 Rx subcutaneous solution (Novolog SUBCUTANEOUS INFUSION DAILY #12 ml U-100 Insulin aspart) hydrocodone 5 mg-acetaminophen 325 1 tab PO Q6H PRN 12/13/20 12/13/20 History mg tablet levothyroxine 88 mcg tablet 88 mcg PO DAILY 12/13/20 12/13/20 History metoprolol succinate 25 mg 25 mg PO BID 12/13/20 12/13/20 History tablet,extended release 24 hr metoprolol succinate 50 mg 50 mg PO BID 12/13/20 12/13/20 History tablet,extended release 24 hr spironolactone 25 mg tablet 25 mg PO DAILY 12/13/20 12/13/20 History torsemide 20 mg tablet 20 mg PO BID 12/13/20 12/13/20 History warfarin 1 mg tablet 2 mg PO [id number] 12/13/20 12/13/20 History Personal History Beliefs That Will Affect Care: None Patient History Medical History Arthritis Asthma well controlled, 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 Bacteremia due to group B Streptococcus CAD (coronary artery disease) Cardiac defibrillator in situ 2007 with replacement 03/[address]. follows [address] Maya. CHF (congestive heart failure) CKD (chronic kidney disease) stage 3, GFR 30-59 ml/min Deformity of foot Depression Diabetes type 2, uncontrolled Diabetic peripheral neuropathy associated with type 2 diabetes mellitus Dyslipidemia GERD (gastroesophageal reflux disease) H/O osteomyelitis History of diabetic ulcer of foot Hx of myocardial infarction found on testing Hx of osteomyelitis Hx of sepsis 06/2019 Hypertension Hypokalemia Hypothyroidism Ischemic cardiomyopathy Adams fracture Base of left fifth metatarsal, nonhealing x years Lymphedema Morbid obesity Rectal bleeding Sleep apnea BIPAP Sustained VT (ventricular tachycardia) T2DM (type 2 diabetes mellitus) Venous stasis ulcer of right lower leg with edema of right lower leg Vitamin D deficiency Surgical History H/O cardiac radiofrequency ablation OCTOBER 2019 ([facility]) AT [facility] H/O foot surgery LEFT FOOT ULCER DEBRIDEMENT H/O shoulder surgery left History of cardiac cath V. tach -- no stent. 06/2019. unsure where it was done History of colonoscopy History of esophagogastroduodenoscopy (EGD) History of sinus surgery Hx of amputation of lesser toe Hx of tonsillectomy Family History Sister Family history of diabetes mellitus 2 Grandmother (Maternal) Family history of diabetes mellitus Grandfather (Maternal) Family history of diabetes mellitus Father Cancer Mother Cancer Other No family history of adverse response to anesthesia Social History Smoking Status: Never smoker Second Hand Exposure: No; Do You Dip or Chew Tobacco: No; Tobacco Cessation Education Requested by Patient: No Hx Alcohol Use: No Hx Substance Use: No Preferred Language: French Communication Ability: Effective [employer] Internship Required: No Beliefs That Will Affect Care: None marital status: Current Living Situation: Alone current occupational status: disabled How many Children do You have: 3 Feels Safe at Home: Yes Safety Concerns: Feels Safe At This Time Assistive Devices: Cane and Glasses Physical Exam Psychiatric: Orientation: alert and oriented x 3 Apperance: appropriately groomed Eye Contact: + fair eye contact Motor Behavior: no abnormal motor movements Speech: normal rate/rhythm/volume of speech Affect: + anxious affect and + constricted affect Mood: + irritable mood Thought Process: linear/logical thought process Thought Content: reality based without delusions Suicidal Thoughts: denies suicidal thoughts Homicidal Thoughts: denies homicidal thoughts Hallucinations: no auditory hallucinations and no visual hallucinations Cognition: recent memory grossly intact Estimated Intelligence: average estimated intelligence Insight: + fair insight Judgement: + fair judgement Vital Signs (Past 24 Hours): Last Vital Signs Temp 36.6 C 12/17/20 12:02 Pulse 93 H 12/17/20 12:02 Resp 20 12/17/20 12:02 BP 152/79 H 12/17/20 12:02 Pulse Ox 94 12/17/20 12:02 Review of Systems All systems reviewed & are unremarkable except as noted in HPI & below Results & Data (PSY) Medications Administered Aspirin (Aspirin 81 Mg Ectab) 81 mg PO QAM MATT Stop: 01/13/21 08:59 Last Admin: 12/17/20 08:15 Dose: 81 mg Documented by: [id number] Admin: 12/16/20 08:38 Dose: 81 mg Documented by: [id number] Admin: 12/15/20 08:25 Dose: 81 mg Documented by: [id number] Admin: 12/14/20 08:19 Dose: 81 mg Documented by: [id number] Diclofenac Sodium (Diclofenac Sod 1% Gel 100 Gm Tube) 4 gm EXT BID MATT Stop: 01/14/21 11:14 Last Admin: 12/17/20 08:17 Dose: 4 gm Documented by: [id number] Admin: 12/16/20 20:19 Dose: 4 gm Documented by: [id number] Admin: 12/16/20 08:38 Dose: 4 gm Documented by: [id number] Admin: 12/15/20 20:26 Dose: 4 gm Documented by: [id number] Admin: 12/15/20 12:17 Dose: 4 gm Documented by: [id number] Fluticasone Propionate (Fluticasone Propionate Na Spr 16 Gm Btl) 2 sprays NA BID MATT Stop: 01/12/21 20:59 Last Admin: 12/17/20 08:17 Dose: 2 sprays Documented by: [id number] Admin: 12/16/20 20:21 Dose: 2 sprays Documented by: [id number] Admin: 12/16/20 08:39 Dose: 2 sprays Documented by: [id number] Admin: 12/15/20 20:27 Dose: 2 sprays Documented by: [id number] Admin: 12/15/20 08:33 Dose: 2 sprays Documented by: [id number] Admin: 12/14/20 20:59 Dose: 2 sprays Documented by: [id number] Admin: 12/14/20 08:20 Dose: 2 sprays Documented by: [id number] Admin: 12/13/20 21:52 Dose: 2 sprays Documented by: [id number] Fluticasone/Vilanterol (Fluticasone/Vilanterol 200/25mcg 14 Puffs/Inhaler) 1 puffs INH DAILY MATT Stop: 01/13/21 08:59 Last Admin: 12/17/20 08:16 Dose: 1 puffs Documented by: [id number] Admin: 12/16/20 08:38 Dose: 1 puffs Documented by: [id number] Admin: 12/15/20 08:26 Dose: 1 puffs Documented by: [id number] Admin: 12/14/20 08:20 Dose: 1 puffs Documented by: [id number] Gabapentin (Gabapentin 300 Mg Cap) 300 mg PO TID MATT Stop: 01/12/21 20:59 Last Admin: 12/17/20 15:23 Dose: 300 mg Documented by: [id number] Admin: 12/17/20 08:14 Dose: 300 mg Documented by: [id number] Admin: 12/16/20 20:20 Dose: 300 mg Documented by: [id number] Admin: 12/16/20 13:24 Dose: 300 mg Documented by: [id number] Admin: 12/16/20 08:37 Dose: 300 mg Documented by: [id number] Admin: 12/15/20 20:30 Dose: 300 mg Documented by: [id number] Admin: 12/15/20 13:17 Dose: 300 mg Documented by: [id number] Admin: 12/15/20 08:26 Dose: 300 mg Documented by: [id number] Admin: 12/14/20 20:59 Dose: 300 mg Documented by: [id number] Admin: 12/14/20 15:23 Dose: 300 mg Documented by: [id number] Admin: 12/14/20 08:19 Dose: 300 mg Documented by: [id number] Admin: 12/13/20 21:52 Dose: 300 mg Documented by: [id number] Heparin Sodium (Beef Lung) (Heparin 10 Unit/Ml 5 Ml Flush) 5 ml FLUSH PRN PRN PRN Reason: Flush Stop: 01/13/21 23:54 Last Admin: 12/15/20 12:21 Dose: 5 ml Documented by: [id number] Hydromorphone HCl (Hydromorphone Inj 0.5 Mg/0.5 Ml Syr) 0.5 mg IV Q4H PRN PRN Reason: Pain Stop: 12/28/20 04:33 Last Admin: 12/17/20 13:09 Dose: 0.5 mg Documented by: [id number] Admin: 12/17/20 09:09 Dose: 0.5 mg Documented by: [id number] Admin: 12/17/20 04:44 Dose: 0.5 mg Documented by: [id number] Admin: 12/17/20 00:38 Dose: 0.5 mg Documented by: [id number] Admin: 12/16/20 19:13 Dose: 0.5 mg Documented by: [id number] Admin: 12/16/20 12:12 Dose: 0.5 mg Documented by: [id number] Admin: 12/16/20 08:45 Dose: 0.5 mg Documented by: [id number] Admin: 12/16/20 04:29 Dose: 0.5 mg Documented by: [id number] Admin: 12/16/20 00:05 Dose: 0.5 mg Documented by: [id number] Admin: 12/15/20 19:58 Dose: 0.5 mg Documented by: [id number] Admin: 12/15/20 12:20 Dose: 0.5 mg Documented by: [id number] Hyoscyamine (Hyoscyamine Sulfate 0.125 Mg Tab) 0.125 mg PO TID MATT Stop: 01/12/21 20:59 Last Admin: 12/17/20 15:23 Dose: 0.125 mg Documented by: [id number] Admin: 12/17/20 08:16 Dose: 0.125 mg Documented by: [id number] Admin: 12/16/20 20:21 Dose: 0.125 mg Documented by: [id number] Admin: 12/16/20 13:24 Dose: 0.125 mg Documented by: [id number] Admin: 12/16/20 08:37 Dose: 0.125 mg Documented by: [id number] Admin: 12/15/20 20:29 Dose: 0.125 mg Documented by: [id number] Admin: 12/15/20 13:20 Dose: 0.125 mg Documented by: [id number] Admin: 12/15/20 08:33 Dose: 0.125 mg Documented by: [id number] Admin: 12/14/20 20:59 Dose: 0.125 mg Documented by: [id number] Admin: 12/14/20 15:23 Dose: 0.125 mg Documented by: [id number] Admin: 12/14/20 08:19 Dose: 0.125 mg Documented by: [id number] Admin: 12/13/20 21:52 Dose: 0.125 mg Documented by: [id number] Furosemide 20 mg/ Syringe 2 mls @ 4 mls/min IV [id number] MATT Stop: 01/13/21 08:59 Last Admin: 12/17/20 08:13 Dose: 4 mls/min Documented by: [id number] Admin: 12/16/20 17:24 Dose: 4 mls/min Documented by: [id number] Admin: 12/16/20 08:37 Dose: 4 mls/min Documented by: [id number] Admin: 12/15/20 17:18 Dose: 4 mls/min Documented by: [id number] Admin: 12/15/20 08:26 Dose: 4 mls/min Documented by: [id number] Admin: 12/14/20 15:50 Dose: 4 mls/min Documented by: [id number] Admin: 12/14/20 08:19 Dose: 4 mls/min Documented by: [id number] Daptomycin 650 mg/ Syringe 13 mls @ 6.5 mls/min IV Q24H MATT; Protocol Stop: 01/25/21 16:59 Last Admin: 12/16/20 17:26 Dose: 6.5 mls/min Documented by: [id number] Admin: 12/15/20 17:19 Dose: 6.5 mls/min Documented by: [id number] Admin: 12/14/20 15:50 Dose: 6.5 mls/min Documented by: [id number] Piperacillin Sod/Tazobactam (Sod 4.5 gm/ Dextrose) 120 mls @ 30 mls/hr IV Q8H MATT; Protocol Stop: 01/24/21 21:59 Last Admin: 12/17/20 15:23 Dose: 30 mls/hr Documented by: [id number] Infusion: 12/17/20 10:32 Dose: 0 mls/hr Documented by: [id number] Admin: 12/17/20 05:29 Dose: 30 mls/hr Documented by: [id number] Infusion: 12/17/20 01:22 Dose: 0 mls/hr Documented by: [id number] Admin: 12/16/20 21:22 Dose: 30 mls/hr Documented by: [id number] Infusion: 12/16/20 17:27 Dose: 0 mls/hr Documented by: [id number] Admin: 12/16/20 13:24 Dose: 30 mls/hr Documented by: [id number] Infusion: 12/16/20 09:51 Dose: 0 mls/hr Documented by: [id number] Admin: 12/16/20 05:50 Dose: 30 mls/hr Documented by: [id number] Infusion: 12/16/20 01:22 Dose: 0 mls/hr Documented by: [id number] Admin: 12/15/20 21:22 Dose: 30 mls/hr Documented by: [id number] Infusion: 12/15/20 17:15 Dose: 0 mls/hr Documented by: [id number] Admin: 12/15/20 13:17 Dose: 30 mls/hr Documented by: [id number] Infusion: 12/15/20 11:39 Dose: 0 mls/hr Documented by: [id number] Infusion: 12/15/20 07:45 Dose: 30 mls/hr Documented by: [id number] Infusion: 12/15/20 06:05 Dose: 0 mls/hr Documented by: [id number] Admin: 12/15/20 05:49 Dose: 30 mls/hr Documented by: [id number] Infusion: 12/15/20 01:10 Dose: 0 mls/hr Documented by: [id number] Admin: 12/14/20 21:10 Dose: 30 mls/hr Documented by: [id number] Infusion: 12/14/20 19:24 Dose: 0 mls/hr Documented by: [id number] Admin: 12/14/20 15:24 Dose: 30 mls/hr Documented by: [id number] Infusion: 12/14/20 10:14 Dose: 0 mls/hr Documented by: [id number] Admin: 12/14/20 06:30 Dose: 30 mls/hr Documented by: [id number] Infusion: 12/14/20 01:51 Dose: 0 mls/hr Documented by: [id number] Admin: 12/13/20 21:51 Dose: 30 mls/hr Documented by: [id number] Fluconazole (Diflucan) 200 mg in 100 mls @ 100 mls/hr IV 1700 MATT Stop: 12/17/20 16:59 Last Infusion: 12/16/20 19:13 Dose: 0 mls/hr Documented by: [id number] Admin: 12/16/20 17:24 Dose: 100 mls/hr Documented by: [id number] Infusion: 12/15/20 18:21 Dose: 0 mls/hr Documented by: [id number] Admin: 12/15/20 17:17 Dose: 100 mls/hr Documented by: [id number] Insulin Aspart (Insulin Aspart 100 Units/Ml 3 Ml Pen) 0 units SC ACHS MATT Stop: 01/15/21 08:59 Last Admin: 12/17/20 12:04 Dose: 19 units Documented by: [id number] Cosigned by: [id number] Admin: 12/17/20 08:06 Dose: 23 units Documented by: [id number] Cosigned by: [id number] Admin: 12/16/20 20:28 Dose: Not Given Documented by: [id number] Cosigned by: [id number] Admin: 12/16/20 17:28 Dose: 19 units Documented by: [id number] Cosigned by: [id number] Admin: 12/16/20 12:06 Dose: 37 units Documented by: [id number] Cosigned by: [id number] Admin: 12/16/20 10:16 Dose: 19 units Documented by: [id number] Cosigned by: [id number] Insulin Glargine (Insulin Glargine Solostar 100 Units/Ml 3 Ml Pen) 55 units SC DAILY MATT Stop: 01/15/21 08:59 Last Admin: 12/17/20 08:07 Dose: 55 units Documented by: [id number] Cosigned by: [id number] Admin: 12/16/20 10:15 Dose: 55 units Documented by: [id number] Cosigned by: [id number] Lactic Acid (Ammonium Lactate 12% Lotion 225 Gm Btl) 1 gm EXT BID MATT Stop: 01/12/21 20:59 Last Admin: 12/17/20 09:11 Dose: 1 gm Documented by: [id number] Admin: 12/16/20 20:18 Dose: 1 gm Documented by: [id number] Admin: 12/16/20 08:38 Dose: 1 gm Documented by: [id number] Admin: 12/15/20 20:28 Dose: 1 gm Documented by: [id number] Admin: 12/15/20 08:29 Dose: 1 gm Documented by: [id number] Admin: 12/14/20 21:00 Dose: 1 gm Documented by: [id number] Admin: 12/14/20 08:20 Dose: 1 gm Documented by: [id number] Admin: 12/13/20 22:50 Dose: 1 gm Documented by: [id number] Levothyroxine Sodium (Levothyroxine Sodium 88 Mcg Tablet) 88 mcg PO DAILYBB [facility] Stop: 01/13/21 06:29 Last Admin: 12/17/20 05:30 Dose: 88 mcg Documented by: [id number] Admin: 12/16/20 05:50 Dose: 88 mcg Documented by: [id number] Admin: 12/15/20 05:52 Dose: 88 mcg Documented by: [id number] Admin: 12/14/20 06:30 Dose: 88 mcg Documented by: [id number] Magnesium Oxide (Magnesium Oxide 400 Mg Tab) 400 mg PO QAM MATT Stop: 01/13/21 08:59 Last Admin: 12/17/20 08:15 Dose: 400 mg Documented by: [id number] Admin: 12/16/20 08:38 Dose: 400 mg Documented by: [id number] Admin: 12/15/20 08:25 Dose: 400 mg Documented by: [id number] Admin: 12/14/20 08:19 Dose: 400 mg Documented by: [id number] Metoprolol Succinate (Metoprolol Succ 50mg Ext Rel Tab) 50 mg PO BID [facility] Stop: 01/12/21 20:59 Last Admin: 12/17/20 08:15 Dose: 50 mg Documented by: [id number] Admin: 12/16/20 20:20 Dose: 50 mg Documented by: [id number] Admin: 12/16/20 08:37 Dose: 50 mg Documented by: [id number] Admin: 12/15/20 20:32 Dose: 50 mg Documented by: [id number] Admin: 12/15/20 08:25 Dose: 50 mg Documented by: [id number] Admin: 12/14/20 21:00 Dose: 50 mg Documented by: [id number] Admin: 12/14/20 08:19 Dose: 50 mg Documented by: [id number] Admin: 12/13/20 21:53 Dose: 50 mg Documented by: [id number] Metoprolol Succinate (Metoprolol Succ 25mg Ext Rel Tab) 25 mg PO BID [facility] Stop: 01/12/21 20:59 Last Admin: 12/17/20 08:15 Dose: 25 mg Documented by: [id number] Admin: 12/16/20 20:20 Dose: 25 mg Documented by: [id number] Admin: 12/16/20 08:37 Dose: 25 mg Documented by: [id number] Admin: 12/15/20 20:32 Dose: 25 mg Documented by: [id number] Admin: 12/15/20 08:26 Dose: 25 mg Documented by: [id number] Admin: 12/14/20 21:00 Dose: 25 mg Documented by: [id number] Admin: 12/14/20 08:19 Dose: 25 mg Documented by: [id number] Admin: 12/13/20 21:53 Dose: 25 mg Documented by: [id number] Pantoprazole Sodium (Pantoprazole 40 Mg Tab) 40 mg PO QAM [facility] Stop: 01/13/21 08:59 Last Admin: 12/17/20 08:14 Dose: 40 mg Documented by: [id number] Admin: 12/16/20 08:37 Dose: 40 mg Documented by: [id number] Admin: 12/15/20 08:25 Dose: 40 mg Documented by: [id number] Admin: 12/14/20 08:19 Dose: 40 mg Documented by: [id number] Potassium Chloride (Potassium Chloride Crtab 20 Meq Tabcr) 20 meq PO DAILY MATT Stop: 01/13/21 08:59 Last Admin: 12/17/20 08:13 Dose: 20 meq Documented by: [id number] Admin: 12/16/20 08:38 Dose: 20 meq Documented by: [id number] Admin: 12/15/20 08:26 Dose: 20 meq Documented by: [id number] Admin: 12/14/20 08:19 Dose: 20 meq Documented by: [id number] Spironolactone (Spironolactone 25 Mg Tab) 25 mg PO DAILY [facility] Stop: 01/13/21 08:59 Last Admin: 12/17/20 08:15 Dose: 25 mg Documented by: [id number] Admin: 12/16/20 08:37 Dose: 25 mg Documented by: [id number] Admin: 12/15/20 08:25 Dose: 25 mg Documented by: [id number] Admin: 12/14/20 08:20 Dose: 25 mg Documented by: [id number] Coding Level of Care Code 90034 U Intl Hosp Care Lvl 2 Diagnoses Anxiety F41.9 Time Spent (min) 35
[2020-12-17] MEDS: DAPTOmycin 650 MG in SYRINGE 0 ML IV SCH (16:46)
[2020-12-17] MEDS: HYDROCODONE/ACETAMOPHEN 5/325MG TAB PO PRN (17:55)
--- NOTE | 2020-12-17 18:45 | Hospitalist Progress Note ---
Date of Service December 17, 2020 Assessment & Plan (1) Diabetic infection of left foot: (2) Acute osteomyelitis of left foot: Plan: This is a 55-year-old medically complex male who has significant past medical history of chronic systolic and diastolic CHF, ischemic cardiomyopathy, CAD, history of SVT, AICD placement October 2019, PAF anticoagulated on warfarin, history of DVT on warfarin, HTN, HLD, CKD stage III baseline 1.5-1.7, NINA on BiPAP, asthma, insulin-dependent T2DM, diabetic peripheral neuropathy, hypothyroidism, chronic left nonhealing diabetic foot wound who presents to ED secondary to referral from wound care / to worsening of L foot wound and slu ggish PICC Line. Status post soft tissue debridement of left foot wound and bone biopsy left metatarsal confirming osteomyelitis on 11/23 at [facility]. Per records + Corynebacterium and Enterococcus. Placed on IV Unasyn every 6 hours, unknown compliance and for the past 3 days PICC line has been sluggish. Presents today with worsening of wound and pain. He does not meet criteria for SIRS/sepsis, but does have leukocytosis 12.91, ESR 1 or 2, CRP 13. pt with multiple wounds of L foot and lateral wound to R foot Blood cultures -negative Wound cultures-left foot ulcer is growing Corynebacterium species and Camila albicans/dubliniensis with yeast and right foot low counts of mixed isabel Continue IV Daptomycin and Zosyn -started in ED MRI of the left foot did show osteomyelitis Appreciate orthopedic input and recommendation-recommended to have him amputation of the left foot Appreciate ID input and recommendation to continue IV antibiotic for long time and also suggested to have surgery as well Discussed with the patient and he wanted to wait till Dr. Bates comes on Thursday and give him the definitive answer Fluconazole was added since yesterday to cover fungal species and will discuss with the ID whether to continue the antifungal or not Clinically remains stable and awaiting Dr. Callejas input tomorrow Has had lower extremity Dopplerawaiting results Further recommendation as per orthopedic surgeon Ongoing back pain Complicated by posture in the hospital bed Will apply Voltaren gel locally twice daily Back pain is better His oral pain medications have been restarted Bilateral feet pain More on the left than the right Has been on Dilaudid intravenously 0.5 mg every 4 hourly as needed With a change in the doses of Dilaudid for pain is better (3) Diabetic foot ulcer: Plan: pt with multiple wounds of L foot, L pretibial area and R lateral foot wound care/nurse consulted ortho consulted Await MRI result-as above Please see the picture of the wound to find out how is it (4) T2DM (type 2 diabetes mellitus): Plan: a1c 7.3 10/18/20 insulin pump consult glycemic pharmacy for assistance (5) CAD (coronary artery disease): Plan: Denies any acute cardiac symptoms of chest pain and palpitation (6) Ischemic cardiomyopathy: Plan: No acute symptoms Has AICD in situ Does not have any cardiac symptoms (7) CHF (congestive heart failure): Plan: Patient with mixed diastolic and systolic CHF Last echocardiogram 05/26/2019 showed EF 30 to 35% with large apical, septal, anterior septal wall motion abnormality and akinesis He did have echo 07/2020; however very limited but documented EF Grossly normal daily weights, strict I and O saturating okay on room air pt c/o increased lower ext edema place on lasix IV 20mg BID continue metoprolol, aldactone, KCL hold statin 2/2 to dapto use-no shortness of breath and chest examination remained unremarkable (8) Hypertension: Plan: Bp stable continue home meds (9) Atrial fibrillation: Plan: rate and rhythm controlled on metoprolol hold warfarin in setting of possible procedure (10) CKD (chronic kidney disease) stage 3, GFR 30-59 ml/min: Plan: Baseline creatinine 1.5-1.7 BUN/creatinine stable at 22 and 1.25 Monitor daily (11) NINA on CPAP: Plan: Bipap at HS (12) Morbid obesity: 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 DVT ppx: INR therapeutic, warfarin on hold, place on SQ heparin when INR < 2 Dispo: PCU PCP: Francesco FULL CODE Admission and Anticipated Discharge Date Admission Date: December 13, 2020 Subjective 12/14/2020 The patient was seen and examined in the telemetry He is a status post MRI of the feet Denies any significant complaints and awaiting ID evaluation 12/15/2020 The patient was seen and examined in telemetry unit He complains to have pain in the left foot and back He blames the back pain on the bed that he has been on now in the hospital He denies any fever and/or chills 12/16/2020 The patient was seen and examined in telemetry unit His pain is controlled with intravenous doses of Dilaudid Denies any other acute symptoms No fever and/or chills 12/17/2020 The patient was seen and examined in telemetry unit He has been frustrated due to the long wait and to be seen by orthopedic surgeon Has been evaluated by psychiatrist Denies any significant symptoms Review of Systems Review of Systems: All systems reviewed and unremarkable except as noted below Musculoskeletal: Bilateral foot pain. Bilateral chronic skin changes. Both feet are in bandage Physical Exam Physical Exam: Sitting at the edge of the bed without any acute symptoms Constitutional: well developed, well nourished and + obese; not ill appearing Eyes: PERRL, conjunctivae normal, anicteric sclerae ENMT: external ear and nose normal, oropharynx normal Neck: trachea midline, no thyromegaly Respiratory: no respiratory distress and no cough Auscultation: lungs clear to auscultation bilaterally Cardiovascular: Rate/Rhythm: regular rate and regular rhythm; not tachycardic Heart Sounds: normal S1 and normal S2; no murmur Extremities: + edema (Bilateral leg edema with chronic skin changes) Gastrointestinal (Abdomen): normal bowel sounds, soft, nontender, no hepatosplenomegaly Inspection/Auscultation: + abdomen distended and normal bowel sounds Percussion/Palpation: abdomen soft; abdomen nontender Musculoskeletal: Ankle: no deformity Skin: Please see the wound pictures for evaluation of bilateral feet wounds Neurologic: moves all extremities and + focal motor deficit Psychiatric: A+Ox3, euthymic affect Lymphatic: no cervical or axillary lymphadenopathy Results & Data Results & Data ([facility]) Vital Signs (Past 12 Hours) Vital Signs Temp Pulse Pulse Resp BP Pulse Ox 12/17/20 16:50 36.8 C 71 18 135/81 95 12/17/20 15:00 65 12/17/20 12:02 36.6 C 93 H 20 152/79 H 94 12/17/20 07:51 36.5 C 64 18 120/68 94 12/17/20 07:00 60 Laboratory Results Short CBC 12/17/20 Range/Units 05:20 WBC 8.22 (4.8-10.8) K/uL Hgb 9.6 L (14.0-18.0) g/dL Hct 31.4 L (42-52) % Plt Count 346 (130-400) K/uL BMP 12/17/20 05:20 Sodium 139 Potassium 3.8 Chloride 106 Carbon Dioxide 27 BUN 14 Creatinine 1.09 Glucose 168 H Calcium 8.4 L Medications Administered Current Inpatient Medications Acetaminophen (Acetaminophen 325 Mg Tab) 650 mg PO Q4H PRN PRN Reason: Pain or Fever Stop: 01/12/21 20:24 Hydrocodone Bitart/Acetaminophen (Hydrocodone/Acetamophen 5/325mg Tab) 1 tab PO Q6H PRN PRN Reason: Pain Stop: 12/31/20 12:12 Last Admin: 12/17/20 17:55 Dose: 1 tab Documented by: Al Hydrox/Mg Hydrox/Simethicone (Aluminum/Magnesium Susp 30 Ml Udc) 15 ml PO Q4H PRN PRN Reason: Dyspepsia Stop: 01/12/21 20:24 Albuterol (Albuterol Hfa 8 Gm Inhaler) 2 puffs INH QID PRN PRN Reason: SHORT OF BREATH Stop: 01/12/21 20:24 Aspirin (Aspirin 81 Mg Ectab) 81 mg PO QAM MATT Stop: 01/13/21 08:59 Last Admin: 12/17/20 08:15 Dose: 81 mg Documented by: Dextrose (Dextrose 50% 50 Ml Syringe) 25 - 50 ml IV UD PRN; Protocol PRN Reason: Hypoglycemia Protocol Stop: 01/12/21 20:24 Diclofenac Sodium (Diclofenac Sod 1% Gel 100 Gm Tube) 4 gm EXT BID [facility] Stop: 01/14/21 11:14 Last Admin: 12/17/20 08:17 Dose: 4 gm Documented by: Ergocalciferol (Ergocalciferol 50,000 Units 1250 Mcg Cap) 50,000 units PO Tu@0900 [facility] Stop: 01/17/21 08:59 Fluticasone Propionate (Fluticasone Propionate Na Spr 16 Gm Btl) 2 sprays NA BID [facility] Stop: 01/12/21 20:59 Last Admin: 12/17/20 08:17 Dose: 2 sprays Documented by: Fluticasone/Vilanterol (Fluticasone/Vilanterol 200/25mcg 14 Puffs/Inhaler) 1 puffs INH DAILY [facility] Stop: 01/13/21 08:59 Last Admin: 12/17/20 08:16 Dose: 1 puffs Documented by: Gabapentin (Gabapentin 300 Mg Cap) 300 mg PO TID MATT Stop: 01/12/21 20:59 Last Admin: 12/17/20 15:23 Dose: 300 mg Documented by: Glucagon (Glucagon For Inj 1 Mg Vial) 1 mg SQ UD PRN; Protocol PRN Reason: Hypoglycemia Protocol Stop: 01/12/21 20:24 Glucose (Glucose 10 Tabs/Tube) 4 - 8 tabs PO UD PRN; Protocol PRN Reason: Hypoglycemia Protocol Stop: 01/12/21 20:24 Glucose (Glucose 40% Gel 15 Gm Tube) 15 - 30 gm PO UD PRN; Protocol PRN Reason: Hypoglycemia Protocol Stop: 01/12/21 20:24 Heparin Sodium (Beef Lung) (Heparin 10 Unit/Ml 5 Ml Flush) 5 ml FLUSH PRN PRN PRN Reason: Flush Stop: 01/13/21 23:54 Last Admin: 12/15/20 12:21 Dose: 5 ml Documented by: Hydromorphone HCl (Hydromorphone Inj 0.5 Mg/0.5 Ml Syr) 0.5 mg IV Q4H PRN PRN Reason: Pain Stop: 12/28/20 04:33 Last Admin: 12/17/20 13:09 Dose: 0.5 mg Documented by: Hyoscyamine (Hyoscyamine Sulfate 0.125 Mg Tab) 0.125 mg PO TID [facility] Stop: 01/12/21 20:59 Last Admin: 12/17/20 15:23 Dose: 0.125 mg Documented by: Furosemide 20 mg/ Syringe 2 mls @ 4 mls/min IV BID17 [facility] Stop: 01/13/21 08:59 Last Admin: 12/17/20 16:45 Dose: 4 mls/min Documented by: Daptomycin 650 mg/ Syringe 13 mls @ 6.5 mls/min IV Q24H [facility]; Protocol Stop: 01/25/21 16:59 Last Admin: 12/17/20 16:46 Dose: 6.5 mls/min Documented by: Piperacillin Sod/Tazobactam (Sod 4.5 gm/ Dextrose) 120 mls @ 30 mls/hr IV Q8H [facility]; Protocol Stop: 01/24/21 21:59 Last Admin: 12/17/20 15:23 Dose: 30 mls/hr Documented by: Insulin Aspart (Insulin Aspart 100 Units/Ml 3 Ml Pen) 0 units SC ACHS MATT Stop: 01/15/21 08:59 Last Admin: 12/17/20 16:44 Dose: 23 units Documented by: Insulin Glargine (Insulin Glargine Solostar 100 Units/Ml 3 Ml Pen) 55 units SC DAILY [facility] Stop: 01/15/21 08:59 Last Admin: 12/17/20 08:07 Dose: 55 units Documented by: Lactic Acid (Ammonium Lactate 12% Lotion 225 Gm Btl) 1 gm EXT BID [facility] Stop: 01/12/21 20:59 Last Admin: 12/17/20 09:11 Dose: 1 gm Documented by: Levothyroxine Sodium (Levothyroxine Sodium 88 Mcg Tablet) 88 mcg PO DAILYBB [facility] Stop: 01/13/21 06:29 Last Admin: 12/17/20 05:30 Dose: 88 mcg Documented by: Magnesium Hydroxide (Magnesium Hydroxide Susp 30 Ml Udc) 30 ml PO Q12H PRN PRN Reason: Constipation Stop: 01/12/21 20:24 Magnesium Oxide (Magnesium Oxide 400 Mg Tab) 400 mg PO QAM MATT Stop: 01/13/21 08:59 Last Admin: 12/17/20 08:15 Dose: 400 mg Documented by: Metoprolol Succinate (Metoprolol Succ 50mg Ext Rel Tab) 50 mg PO BID [facility] Stop: 01/12/21 20:59 Last Admin: 12/17/20 08:15 Dose: 50 mg Documented by: Metoprolol Succinate (Metoprolol Succ 25mg Ext Rel Tab) 25 mg PO BID [facility] Stop: 01/12/21 20:59 Last Admin: 12/17/20 08:15 Dose: 25 mg Documented by: Miscellaneous (Carbohydrates For Hypoglycemia ) 15 - 30 gm PO UD PRN PRN Reason: Hypoglycemia Protocol Stop: 01/12/21 20:24 Miscellaneous Information (Pharmacy Glycemic Mgmt Consult) 1 ea N/A UD PRN; Protocol PRN Reason: Consult Stop: 01/12/21 20:24 Miscellaneous Information (Daptomycin Consult Active) 1 ea N/A UD PRN PRN Reason: Consult Stop: 01/12/21 20:55 Miscellaneous Information (Piperacill/Tazobac Consult Active) 0 ea N/A UD PRN PRN Reason: Consult Stop: 01/12/21 20:24 Ondansetron HCl (Ondansetron Inj 2 Mg/Ml 2 Ml Vial) 4 mg IV Q6H PRN PRN Reason: Nausea Stop: 01/12/21 20:24 Pantoprazole Sodium (Pantoprazole 40 Mg Tab) 40 mg PO QAM [facility] Stop: 01/13/21 08:59 Last Admin: 12/17/20 08:14 Dose: 40 mg Documented by: Polyethylene Glycol (Polyethylene (Miralax) 17 Gm Pack) 17 gm PO DAILY PRN PRN Reason: Constipation Stop: 01/12/21 20:24 Potassium Chloride (Potassium Chloride Crtab 20 Meq Tabcr) 20 meq PO DAILY [facility]ATT Stop: 01/13/21 08:59 Last Admin: 12/17/20 08:13 Dose: 20 meq Documented by: Spironolactone (Spironolactone 25 Mg Tab) 25 mg PO DAILY [facility] Stop: 01/13/21 08:59 Last Admin: 12/17/20 08:15 Dose: 25 mg Documented by:
--- NOTE | 2020-12-17 18:53 | Ultrasound Report ---
US arterial duplex LE LT CLINICAL HISTORY: r/o stenosis for possible surgery. Left leg pain. COMPARISON STUDY: Ultrasound left lower extremity arterial Doppler study 07/13/2020. FINDINGS: The ankle brachial indices were unable to be obtained due to the patient's overlying dressi ngs and wound. There are normal triphasic waveforms and velocities within the left common femoral and left deep femoral arteries. Monophasic waveforms throughout the majority of the left superficial fem oral artery without elevated velocities. There are monophasic waveforms and normal velocities within the left popliteal, posterior tibial, peroneal, anterior tibial, dorsalis pedis arteries. IMPRESSION: 1. No evidence for arterial occlusion within the left lower extremity. 2. Monophasic waveforms seen within the left superficial femoral, popliteal, and calf arteries sugges tive of diffuse atherosclerotic disease. However, no elevated velocities to suggest stenosis at this time. ACT 112: Negative or not required by law. Electronically signed by: Huey Thorne M.D. 12/17/2020 6:51 PM
[2020-12-18] MEDS: HYDROmorphone INJ 0.5 MG/0.5 ML SYR IV PRN ×5 (02:21→20:12)
[2020-12-18] MEDS: PIPERACILLIN/TAZOBACTAM 4.5 GM in DEXTROSE 5% 100 ML IV SCH ×3 (05:27→22:02)
[2020-12-18] MEDS: LEVOTHYROXINE SODIUM 88 MCG TABLET PO SCH (05:30)
[2020-12-18] MEDS ORDERED: ERGOCALCIFEROL 50,000 UNITS 1250 MCG CAP PO SCH (09:00)
[2020-12-18] MEDS: INSULIN ASPART 100 UNITS/ML 3 ML PEN SC SCH ×4 (09:55→21:20)
--- NOTE | 2020-12-18 09:55 | Pharmacy Report ---
Pharmacy Glycemic Short Note 2 - Date of Service December 18, 2020 - Glycemic Short BSG Results (Last 24 hours): 12/17/20 12/17/20 12/17/20 11:27 16:41 20:33 POC Glucose 168 H 164 H 176 H 12/18/20 07:41 POC Glucose 180 H OUTPATIENT ANTIDIABETIC REGIMEN: * Insulin pump - 2 units/hr ; CF 20, CR 4 * A1c 8.5% ASSESSMENT: 12/18 * BSGs reasonably well controlled yesterday, 174, 168, 164, and 176 mg/dL * Received 124 units of insulin, 55 units of basal and 69 units of prandial/correctional bolus * Fasting BSG of 180 mg/dL this morning, will continue current basal dose today, but if still elevated tomorrow will increase * Lunch BSG elevated at 241 mg/dL, likely due to patient eating full breakfast and refusing Novolog 12/16 * RN notified pharmacy that patient's pump "" this morning and he is unable to charge it. No family members able to bring him the necessary supplies. Pt requested change from pump to SQ basal bolus. * Pt known to pharmacy from previous admissions/glycemic consults. Will change to SQ basal bolus based on previous admissions and current insulin pump data. * Pre-lunch BSG is elevated because breakfast insulin coverage delayed. Will not make any changes to insulin orders in response to this hyperglycemic event 12/14 * 55 year old admitted with L foot osteo, type 2 diabetic managed on insulin pump at home. Known to glycemic service from other admissions. Typically does very well on insulin pump while hospitalized. Prior admissions he has managed himself on pump while NPO/diet and did well * Spoke with patient today and he would like to continue with insulin pump. He feels comfortable adjusting pump as he is NPO this morning * Patient aware that if blood sugars become unstable, we may need to take off pump PLAN FOR INPATIENT GLYCEMIC CONTROL: * Continue to hold insulin pump * Basal insulin * Lantus 55 units SQ Q24hrs - will try to keep Q24hr dosing for easier transition back to pump * Bolus insulin * NovoLog per scale ACHS * Goal range 110-140 mg/dl * CF= 10 mg/dl/unit * CR = 1 unit for every 4g CHO consumed
[2020-12-18] MEDS: INSULIN GLARGINE SOLOSTAR 100 UNITS/ML 3 ML PEN SC SCH (09:57)
[2020-12-18] MEDS: PANTOprazole 40 MG TAB PO SCH (09:59)
[2020-12-18] MEDS: POTASSIUM CHLORIDE CRTAB 20 MEQ TABCR PO SCH (09:59)
[2020-12-18] MEDS: HYOSCYAMINE SULFATE 0.125 MG TAB PO SCH ×3 (10:00→21:20)
[2020-12-18] MEDS: MAGNESIUM OXIDE 400 MG TAB PO SCH (10:00)
[2020-12-18] MEDS: METOPROLOL SUCC 50MG EXT REL TAB PO SCH ×2 (10:00→21:21)
[2020-12-18] MEDS: FUROSEMIDE 20 MG in SYRINGE 0 ML IV SCH ×2 (10:00→17:12)
[2020-12-18] MEDS: METOPROLOL SUCC 25MG EXT REL TAB PO SCH ×2 (10:00→21:21)
[2020-12-18] MEDS: DICLOFENAC SOD 1% GEL 100 GM TUBE EXT SCH ×2 (10:01→21:19)
[2020-12-18] MEDS: ASPIRIN 81 MG ECTAB PO SCH (10:01)
[2020-12-18] MEDS: FLUTICASONE PROPIONATE NA SPR 16 GM BTL SCH ×2 (10:02→21:19)
[2020-12-18] MEDS: FLUTICASONE/VILANTEROL 200/25MCG 14 PUFFS/INHALER INH SCH (10:02)
[2020-12-18] MEDS: GABAPENTIN 300 MG CAP PO SCH ×3 (10:03→21:20)
[2020-12-18] MEDS: SPIRONOLACTONE 25 MG TAB PO SCH (10:03)
[2020-12-18] MEDS: AMMONIUM LACTATE 12% LOTION 225 GM BTL EXT SCH ×2 (10:11→21:19)
--- NOTE | 2020-12-18 14:01 | Communication Note ---
Date of Service: December 18, [address] Bates last night. He discussed treatment of his left foot ulcer and osteomyelitis. Plans will be for vascular consult for either limb salvage versus BKA/AKA. Consult placed for Dr. Gonzalez. Await vascular consult recommendations. I had seen the patient while sitting up in his bedside chair last night. We had lengthy discussion regarding the state of his foot and left lower extremity. Patient was concerned about need for amputation which is a very real threat for him at this time based upon the worsening of his Charcot arthropathy and multiple apparent deep bone infections of the left lower extremity. Upon exam left lower extremity is noted to be significantly edematous with exacerbation of his chronic lymphedema and left lower extremity cellulitis. 3 out of 4 edema left lower extremity. Large gaping ulceration lateral aspect of the left hindfoot and secondary ulceration posterior lateral. Obvious deep soft tissue and bony involvement upon visualization. Pulses somewhat palpable due to the gross edema bilateral lower extremities. Sensation limited to deep pressure however only intermittently. Laboratories and diagnostics reviewed. Assessment: Severe Charcot arthropathy with multifocal osteomyelitis left hindfoot/midfoot with midfoot dissociation. Recommendation: Patient reluctant to proceed with BKA/AKA at this time. Vascular consultation requested to help ascertain appropriate level of resection. Patient may still refuse amputation and opt for prolonged attempt at limb salvage. We will discuss further after patient discusses with vascular team and with his friends and family. Thank for the opportunity consult in care of this patient. Bg Bates DO
[2020-12-18] MEDS: DAPTOmycin 650 MG in SYRINGE 0 ML IV SCH (17:14)
--- NOTE | 2020-12-18 17:22 | Hospitalist Progress Note ---
Date of Service December 18, 2020 Assessment & Plan (1) Diabetic infection of left foot: (2) Acute osteomyelitis of left foot: Plan: This is a 55-year-old medically complex male who has significant past medical history of chronic systolic and diastolic CHF, ischemic cardiomyopathy, CAD, history of SVT, AICD placement October 2019, PAF anticoagulated on warfarin, history of DVT on warfarin, HTN, HLD, CKD stage III baseline 1.5-1.7, NINA on BiPAP, asthma, insulin-dependent T2DM, diabetic peripheral neuropathy, hypothyroidism, chronic left nonhealing diabetic foot wound who presents to ED secondary to referral from wound care / to worsening of L foot wound and slu ggish PICC Line. Status post soft tissue debridement of left foot wound and bone biopsy left metatarsal confirming osteomyelitis on 11/23 at [facility]. Per records + Corynebacterium and Enterococcus. Placed on IV Unasyn every 6 hours, unknown compliance and for the past 3 days PICC line has been sluggish. Presents today with worsening of wound and pain. He does not meet criteria for SIRS/sepsis, but does have leukocytosis 12.91, ESR 1 or 2, CRP 13. pt with multiple wounds of L foot and lateral wound to R foot Blood cultures -negative Wound cultures-left foot ulcer is growing Corynebacterium species and Camila albicans/dubliniensis with yeast and right foot low counts of mixed isabel Continue IV Daptomycin and Zosyn -started in ED MRI of the left foot did show osteomyelitis Appreciate orthopedic input and recommendation-recommended to have him amputation of the left foot Appreciate ID input and recommendation to continue IV antibiotic for long time and also suggested to have surgery as well Discussed with the patient and he wanted to wait till Dr. Bates comes on Thursday and give him the definitive answer Fluconazole was added since yesterday to cover fungal species and will discuss with the ID whether to continue the antifungal or not Clinically remains stable and awaiting Dr. Callejas input DARRYL Has had lower extremity Dopplerdid not show any significant arterial o bstruction There were three advised to have amputation either BKA or AKA on the left side He will have vascular surgery evaluation determined the level of amputation is best for him He remains stable Ongoing back pain Complicated by posture in the hospital bed Will apply Voltaren gel locally twice daily Back pain is better His oral pain medications have been restarted Bilateral feet pain More on the left than the right Has been on Dilaudid intravenously 0.5 mg every 4 hourly as needed With a change in the doses of Dilaudid for pain is better Severe anxiety Appreciate psychiatrist input and recommendation Has been getting Ativan as needed (3) Diabetic foot ulcer: Plan: pt with multiple wounds of L foot, L pretibial area and R lateral foot wound care/nurse consulted ortho consulted Await MRI result-as above Please see the picture of the wound to find out how is it Discussed with the ID specialist in [place] We will continue Diflucan and preference will be given to intravenous vancomycin For a total of 6 weeks (4) T2DM (type 2 diabetes mellitus): Plan: a1c 7.3 10/18/20 insulin pump consult glycemic pharmacy for assistance (5) CAD (coronary artery disease): Plan: Denies any acute cardiac symptoms of chest pain and palpitation (6) Ischemic cardiomyopathy: Plan: No acute symptoms Has AICD in situ Does not have any cardiac symptoms (7) CHF (congestive heart failure): Plan: Patient with mixed diastolic and systolic CHF Last echocardiogram 05/26/2019 showed EF 30 to 35% with large apical, septal, anterior septal wall motion abnormality and akinesis He did have echo 07/2020; however very limited but documented EF Grossly normal daily weights, strict I and O saturating okay on room air pt c/o increased lower ext edema place on lasix IV 20mg BID continue metoprolol, aldactone, KCL hold statin 2/2 to dapto use-no shortness of breath and chest examination remained unremarkable (8) Hypertension: Plan: Bp stable continue home meds (9) Atrial fibrillation: Plan: rate and rhythm controlled on metoprolol hold warfarin in setting of possible procedure (10) CKD (chronic kidney disease) stage 3, GFR 30-59 ml/min: Plan: Baseline creatinine 1.5-1.7 BUN/creatinine stable at 22 and 1.25 Monitor daily (11) NINA on CPAP: Plan: Bipap at HS (12) Morbid obesity: Plan: BMI 46.4 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 consult ordered DVT ppx: INR therapeutic, warfarin on hold, place on SQ heparin when INR < 2 Dispo: PCU PCP: Francesco FULL CODE Admission and Anticipated Discharge Date Admission Date: December 13, 2020 Subjective 12/14/2020 The patient was seen and examined in the telemetry He is a status post MRI of the feet Denies any significant complaints and awaiting ID evaluation 12/15/2020 The patient was seen and examined in telemetry unit He complains to have pain in the left foot and back He blames the back pain on the bed that he has been on now in the hospital He denies any fever and/or chills 12/16/2020 The patient was seen and examined in telemetry unit His pain is controlled with intravenous doses of Dilaudid Denies any other acute symptoms No fever and/or chills 12/17/2020 The patient was seen and examined in telemetry unit He has been frustrated due to the long wait and to be seen by orthopedic surgeon Has been evaluated by psychiatrist Denies any significant symptoms 12/18/2020 The patient was seen and examined in telemetry unit He was seen by Dr. Bates and consulted vascular surgery to the decision about amputation either BKA or AKA Patient is getting very anxious and also frustrated Review of Systems Review of Systems: All systems reviewed and unremarkable except as noted below Musculoskeletal: Bilateral foot pain. Bilateral chronic skin changes. Both feet are in bandage Physical Exam Physical Exam: Sitting at the edge of the bed without any acute symptoms Constitutional: well developed, well nourished and + obese; not ill appearing Eyes: PERRL, conjunctivae normal, anicteric sclerae ENMT: external ear and nose normal, oropharynx normal Neck: trachea midline, no thyromegaly Respiratory: no respiratory distress and no cough Auscultation: lungs clear to auscultation bilaterally Cardiovascular: Rate/Rhythm: regular rate and regular rhythm; not tachycardic Heart Sounds: normal S1 and normal S2; no murmur Extremities: + edema (Bilateral leg edema with chronic skin changes) Gastrointestinal (Abdomen): normal bowel sounds, soft, nontender, no hepatosplenomegaly Inspection/Auscultation: + abdomen distended and normal bowel sounds Percussion/Palpation: abdomen soft; abdomen nontender Musculoskeletal: Ankle: no deformity Neurologic: moves all extremities and + focal motor deficit Psychiatric: A+Ox3, euthymic affect Lymphatic: no cervical or axillary lymphadenopathy Results & Data Results & Data ([facility]) Vital Signs (Past 12 Hours) Vital Signs Temp Pulse Pulse Resp BP Pulse Ox 12/18/20 16:00 64 12/18/20 10:53 36.8 C 69 18 145/72 H 98 12/18/20 08:35 36.5 C 64 18 146/74 H 99 12/18/20 08:00 55 L Medications Administered Current Inpatient Medications Acetaminophen (Acetaminophen 325 Mg Tab) 650 mg PO Q4H PRN PRN Reason: Pain or Fever Stop: 01/12/21 20:24 Hydrocodone Bitart/Acetaminophen (Hydrocodone/Acetamophen 5/325mg Tab) 1 tab PO Q6H PRN PRN Reason: Pain Stop: 12/31/20 12:12 Last Admin: 12/17/20 17:55 Dose: 1 tab Documented by: Al Hydrox/Mg Hydrox/Simethicone (Aluminum/Magnesium Susp 30 Ml Udc) 15 ml PO Q4H PRN PRN Reason: Dyspepsia Stop: 01/12/21 20:24 Albuterol (Albuterol Hfa 8 Gm Inhaler) 2 puffs INH QID PRN PRN Reason: SHORT OF BREATH Stop: 01/12/21 20:24 Aspirin (Aspirin 81 Mg Ectab) 81 mg PO QAM [facility] Stop: 01/13/21 08:59 Last Admin: 12/18/20 10:01 Dose: 81 mg Documented by: Dextrose (Dextrose 50% 50 Ml Syringe) 25 - 50 ml IV UD PRN; Protocol PRN Reason: Hypoglycemia Protocol Stop: 01/12/21 20:24 Diclofenac Sodium (Diclofenac Sod 1% Gel 100 Gm Tube) 4 gm EXT BID [facility] Stop: 01/14/21 11:14 Last Admin: 12/18/20 10:01 Dose: 4 gm Documented by: Ergocalciferol (Ergocalciferol 50,000 Units 1250 Mcg Cap) 50,000 units PO Tu@0900 [facility] Stop: 01/17/21 08:59 Last Admin: 12/18/20 10:00 Dose: 50,000 units Documented by: Fluticasone Propionate (Fluticasone Propionate Na Spr 16 Gm Btl) 2 sprays NA BID MATT Stop: 01/12/21 20:59 Last Admin: 12/18/20 10:02 Dose: 2 sprays Documented by: Fluticasone/Vilanterol (Fluticasone/Vilanterol 200/25mcg 14 Puffs/Inhaler) 1 puffs INH DAILY [facility] Stop: 01/13/21 08:59 Last Admin: 12/18/20 10:02 Dose: 1 puffs Documented by: Gabapentin (Gabapentin 300 Mg Cap) 300 mg PO TID MATT Stop: 01/12/21 20:59 Last Admin: 12/18/20 13:38 Dose: 300 mg Documented by: Glucagon (Glucagon For Inj 1 Mg Vial) 1 mg SQ UD PRN; Protocol PRN Reason: Hypoglycemia Protocol Stop: 01/12/21 20:24 Glucose (Glucose 10 Tabs/Tube) 4 - 8 tabs PO UD PRN; Protocol PRN Reason: Hypoglycemia Protocol Stop: 01/12/21 20:24 Glucose (Glucose 40% Gel 15 Gm Tube) 15 - 30 gm PO UD PRN; Protocol PRN Reason: Hypoglycemia Protocol Stop: 01/12/21 20:24 Heparin Sodium (Beef Lung) (Heparin 10 Unit/Ml 5 Ml Flush) 5 ml FLUSH PRN PRN PRN Reason: Flush Stop: 01/13/21 23:54 Last Admin: 12/15/20 12:21 Dose: 5 ml Documented by: Hydromorphone HCl (Hydromorphone Inj 0.5 Mg/0.5 Ml Syr) 0.5 mg IV Q4H PRN PRN Reason: Pain Stop: 12/28/20 04:33 Last Admin: 12/18/20 14:39 Dose: 0.5 mg Documented by: Hyoscyamine (Hyoscyamine Sulfate 0.125 Mg Tab) 0.125 mg PO TID MATT Stop: 01/12/21 20:59 Last Admin: 12/18/20 13:38 Dose: 0.125 mg Documented by: Furosemide 20 mg/ Syringe 2 mls @ 4 mls/min IV BID17 [facility] Stop: 01/13/21 08:59 Last Admin: 12/18/20 17:12 Dose: 4 mls/min Documented by: Daptomycin 650 mg/ Syringe 13 mls @ 6.5 mls/min IV Q24H [facility]; Protocol Stop: 01/25/21 16:59 Last Admin: 12/18/20 17:14 Dose: 6.5 mls/min Documented by: Piperacillin Sod/Tazobactam (Sod 4.5 gm/ Dextrose) 120 mls @ 30 mls/hr IV Q8H [facility]; Protocol Stop: 01/24/21 21:59 Last Admin: 12/18/20 13:38 Dose: 30 mls/hr Documented by: Lorazepam (Ativan) 0.5 mg in 1 mls @ 1 mls/min IV Q4H PRN PRN Reason: Agitation Stop: 01/17/21 10:55 Insulin Aspart (Insulin Aspart 100 Units/Ml 3 Ml Pen) 0 units SC ACHS MATT Stop: 01/15/21 08:59 Last Admin: 12/18/20 17:12 Dose: 24 units Documented by: Insulin Glargine (Insulin Glargine Solostar 100 Units/Ml 3 Ml Pen) 55 units SC DAILY MATT Stop: 01/15/21 08:59 Last Admin: 12/18/20 09:57 Dose: 55 units Documented by: Lactic Acid (Ammonium Lactate 12% Lotion 225 Gm Btl) 1 gm EXT BID [facility] Stop: 01/12/21 20:59 Last Admin: 12/18/20 10:11 Dose: 1 gm Documented by: Levothyroxine Sodium (Levothyroxine Sodium 88 Mcg Tablet) 88 mcg PO DAILYBB [facility] Stop: 01/13/21 06:29 Last Admin: 12/18/20 05:30 Dose: 88 mcg Documented by: Magnesium Hydroxide (Magnesium Hydroxide Susp 30 Ml Udc) 30 ml PO Q12H PRN PRN Reason: Constipation Stop: 01/12/21 20:24 Magnesium Oxide (Magnesium Oxide 400 Mg Tab) 400 mg PO QAM [facility] Stop: 01/13/21 08:59 Last Admin: 12/18/20 10:00 Dose: 400 mg Documented by: Metoprolol Succinate (Metoprolol Succ 50mg Ext Rel Tab) 50 mg PO BID [facility] Stop: 01/12/21 20:59 Last Admin: 12/18/20 10:00 Dose: 50 mg Documented by: Metoprolol Succinate (Metoprolol Succ 25mg Ext Rel Tab) 25 mg PO BID [facility] Stop: 01/12/21 20:59 Last Admin: 12/18/20 10:00 Dose: 25 mg Documented by: Miscellaneous (Carbohydrates For Hypoglycemia ) 15 - 30 gm PO UD PRN PRN Reason: Hypoglycemia Protocol Stop: 01/12/21 20:24 Miscellaneous Information (Pharmacy Glycemic Mgmt Consult) 1 ea N/A UD PRN; Protocol PRN Reason: Consult Stop: 01/12/21 20:24 Miscellaneous Information (Daptomycin Consult Active) 1 ea N/A UD PRN PRN Reason: Consult Stop: 01/12/21 20:55 Miscellaneous Information (Piperacill/Tazobac Consult Active) 0 ea N/A UD PRN PRN Reason: Consult Stop: 01/12/21 20:24 Ondansetron HCl (Ondansetron Inj 2 Mg/Ml 2 Ml Vial) 4 mg IV Q6H PRN PRN Reason: Nausea Stop: 01/12/21 20:24 Pantoprazole Sodium (Pantoprazole 40 Mg Tab) 40 mg PO QAM [facility] Stop: 01/13/21 08:59 Last Admin: 12/18/20 09:59 Dose: 40 mg Documented by: Polyethylene Glycol (Polyethylene (Miralax) 17 Gm Pack) 17 gm PO DAILY PRN PRN Reason: Constipation Stop: 01/12/21 20:24 Potassium Chloride (Potassium Chloride Crtab 20 Meq Tabcr) 20 meq PO DAILY MATT Stop: 01/13/21 08:59 Last Admin: 12/18/20 09:59 Dose: 20 meq Documented by: Spironolactone (Spironolactone 25 Mg Tab) 25 mg PO DAILY MATT Stop: 01/13/21 08:59 Last Admin: 12/18/20 10:03 Dose: 25 mg Documented by:
[2020-12-19] MEDS: LORazepam 0.5 MG/1 ML VIAL IV PRN ×2 (01:41→20:03)
[2020-12-19] MEDS: HYDROmorphone INJ 0.5 MG/0.5 ML SYR IV PRN ×5 (03:51→22:42)
[2020-12-19] MEDS: PIPERACILLIN/TAZOBACTAM 4.5 GM in DEXTROSE 5% 100 ML IV SCH ×3 (06:01→21:29)
[2020-12-19] MEDS: LEVOTHYROXINE SODIUM 88 MCG TABLET PO SCH (06:01)
[2020-12-19 07:40] LABS: Basophils # (auto) 0.06 K/uL (0-0.2); Basophils % (auto) 0.6 %; Eosinophils % (auto) 5.1 %; Hematocrit (blood only) 33.6 % (42-52); Hemoglobin 10.5 g/dL (14.0-18.0); Immature Granulocytes # (auto) 0.06 K/uL (0.00-0.02); Immature Granulocytes % (auto) 0.6 %; Lymphocytes # (auto) 1.35 K/uL (1.2-3.4); Lymphocytes % (auto) 13.9 %; Mean Corpuscular Hemoglobin 26.7 pg (25-34); Mean Corpuscular Hgb Conc 31.3 g/dL (32-36); Mean Corpuscular Volume 85.5 fL (80-100); Mean Platelet Volume 9.1 fL (7.4-10.4); Monocytes # (auto) 0.71 K/uL (0.11-0.59); Monocytes % (auto) 7.3 %; Neutrophils # (auto) 7.06 K/uL (1.4-6.5); Neutrophils % (auto) 72.5 %; Platelet Count 422 K/uL (130-400); RDW Coefficient of Variation 17.1 % (11.5-14.5); RDW Standard Deviation 53.7 fL (36.4-46.3); Red Blood Count 3.93 M/uL (4.7-6.1); White Blood Count 9.74 K/uL (4.8-10.8)
[2020-12-19 08:09] LABS: BUN Creatinine Ratio 15.5 (10-20); Calcium 8.9 mg/dl (8.5-10.1); Creatinine Clr Calc Pharmacy 102.7 ml/min; Est GFR (African American) 78.1 ml/min; Est GFR (Non-African American) 67.4 ml/min
[2020-12-19 08:10] LABS: Phosphorus 2.7 mg/dl (2.5-4.9)
[2020-12-19] MEDS: INSULIN GLARGINE SOLOSTAR 100 UNITS/ML 3 ML PEN SC SCH (08:12)
[2020-12-19] MEDS: INSULIN ASPART 100 UNITS/ML 3 ML PEN SC SCH ×5 (08:12→21:27)
[2020-12-19] MEDS: PANTOprazole 40 MG TAB PO SCH (08:14)
[2020-12-19] MEDS: MAGNESIUM OXIDE 400 MG TAB PO SCH (08:14)
[2020-12-19] MEDS: HYOSCYAMINE SULFATE 0.125 MG TAB PO SCH ×3 (08:15→21:23)
[2020-12-19] MEDS: SPIRONOLACTONE 25 MG TAB PO SCH (08:15)
[2020-12-19] MEDS: POTASSIUM CHLORIDE CRTAB 20 MEQ TABCR PO SCH (08:15)
[2020-12-19] MEDS: FLUTICASONE PROPIONATE NA SPR 16 GM BTL SCH ×2 (08:16→21:24)
[2020-12-19] MEDS: ASPIRIN 81 MG ECTAB PO SCH (08:16)
[2020-12-19] MEDS: GABAPENTIN 300 MG CAP PO SCH ×3 (08:17→21:22)
[2020-12-19] MEDS: FUROSEMIDE 20 MG in SYRINGE 0 ML IV SCH ×2 (08:17→17:05)
[2020-12-19] MEDS: FLUTICASONE/VILANTEROL 200/25MCG 14 PUFFS/INHALER INH SCH (08:17)
[2020-12-19] MEDS: AMMONIUM LACTATE 12% LOTION 225 GM BTL EXT SCH ×2 (08:54→21:26)
[2020-12-19] MEDS: DICLOFENAC SOD 1% GEL 100 GM TUBE EXT SCH ×2 (08:54→21:23)
[2020-12-19] MEDS: METOPROLOL SUCC 25MG EXT REL TAB PO SCH ×2 (08:54→21:22)
[2020-12-19] MEDS: METOPROLOL SUCC 50MG EXT REL TAB PO SCH ×2 (08:54→21:25)
--- NOTE | 2020-12-19 12:10 | Consultation ---
Date of Consultation December 19, 2020 Assessment & Plan (1) Peripheral arterial disease: Pt with very mild diffuse arterial disease of LLE. No indications for vascular surgical intervention at this time. adequate flow maintained that should allow for healing of BKA, however, pt with significant skin changes from venous stasis/lymphedema below the knee that would likely impede healing. Recommend pt undergo AKA for best chance of healing. Pt aware. Please call if needed. History of Present Illness Reason for Consultation: LLE osteomyelitis, PAD Attending Physician: Cl Cruz MD History of Present Illness 55 yo m with multiple medical problems, including DMII, CHF, CKD, ischemic cardiomyopathy, V tach s/p AICD, a fib, HTN, dyslipidemia, CAD, and chronic venous insufficiency/lymphedema, and BLE foot wounds that are nonhealing, seen in consultation today for PAD noted on US and opinion on level of amputation required. Pt states has had his L foot wounds for some time and they were improving until recently. States the wounds became worse and the wound clinic at [place] had a wound vac placed. Has undergone surgical debridements in past by Dr Bates. Pt was admitted here d/t worsening infection, and found to have extensive osteomyelitis which may require AK vs BK amputation. Arterial US demonstrates triphasic and biphasic signals without focal stenosis. Pt states he would be willing to consider BK amputation, but does not want AK amputation. Pt currently denies CURRY, fever, chest pain, SOB, abd pain, N/V, rest pain, claudication, other complaints. Allergies Allergy/AdvReac Type Severity Reaction Status Date / Time benzonatate AdvReac Intermediate choking, Verified 12/13/20 19:37 gagging Home Medications Medication Instructions Recorded Confirmed Type fluticasone propionate 50 2 sprays INTNAS BID gm 12/21/17 12/13/20 History mcg/actuation nasal spray,suspension (Flonase Allergy Relief) magnesium oxide 400 mg PO QAM cap 12/21/17 12/13/20 History mometasone-formoterol HFA 200 2 puffs INH BID 12/21/17 12/13/20 History mcg-5 mcg/actuation aerosol inhaler (Dulera) nitroglycerin 0.4 mg sublingual 0.4 mg SL Q5M PRN 12/21/17 12/13/20 History tablet omeprazole 20 mg capsule,delayed 20 mg PO QAM 12/21/17 12/13/20 History release tramadol 50 mg tablet 50 mg PO Q6H PRN 12/21/17 12/13/20 History ergocalciferol (vitamin D2) 62.5 50,000 unit PO WK 04/12/19 12/13/20 History mcg (2,500 unit) capsule gabapentin 300 mg capsule 300 mg PO TID 04/12/19 12/13/20 History hyoscyamine sulfate 0.125 mg 0.125 mg PO TID 04/12/19 12/13/20 History tablet (Levsin) atorvastatin 80 mg tablet 80 mg PO HS 01/18/20 12/13/20 History clobetasol 0.05 % topical cream 1 applic TOPICAL BID 01/18/20 12/13/20 History blood-glucose meter (OneTouch #1 ea 02/21/20 12/13/20 Rx Verio Flex meter) albuterol sulfate 90 mcg/actuation 2 puff INHALATION QID PRN 05/30/20 12/13/20 History aerosol inhaler (Ventolin HFA) aspirin 81 mg tablet,delayed 81 mg PO QAM 06/12/20 12/13/20 History release warfarin 1 mg tablet 3 mg PO SUTH 07/12/20 12/13/20 History ammonium lactate 5 % lotion 1 applic TOPICAL DAILY PRN 08/15/20 12/13/20 History (Lac-Hydrin Five) potassium chloride 20 mEq 20 meq PO DAILY #30 tab 08/23/20 12/13/20 Rx tablet,extended release insulin aspart U-100 100 unit/mL See Rx Instructions CONTINUOUS 11/01/20 12/13/20 Rx subcutaneous solution (Novolog SUBCUTANEOUS INFUSION DAILY #12 ml U-100 Insulin aspart) hydrocodone 5 mg-acetaminophen 325 1 tab PO Q6H PRN 12/13/20 12/13/20 History mg tablet levothyroxine 88 mcg tablet 88 mcg PO DAILY 12/13/20 12/13/20 History metoprolol succinate 25 mg 25 mg PO BID 12/13/20 12/13/20 History tablet,extended release 24 hr metoprolol succinate 50 mg 50 mg PO BID 12/13/20 12/13/20 History tablet,extended release 24 hr spironolactone 25 mg tablet 25 mg PO DAILY 12/13/20 12/13/20 History torsemide 20 mg tablet 20 mg PO BID 12/13/20 12/13/20 History warfarin 1 mg tablet 2 mg PO MOTUWEFRSA 12/13/20 12/13/20 History Patient History Medical History (Updated 12/19/20 @ 13:01 by Nasrin Lea PA-C) Arthritis Asthma well controlled, daily watermaster 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 Bacteremia due to group B Streptococcus CAD (coronary artery disease) Cardiac defibrillator in situ 2007 with replacement 03/[address]. follows [address] Maya. CHF (congestive heart failure) CKD (chronic kidney disease) stage 3, GFR 30-59 ml/min Deformity of foot Depression Diabetes type 2, uncontrolled Diabetic peripheral neuropathy associated with type 2 diabetes mellitus Dyslipidemia GERD (gastroesophageal reflux disease) H/O osteomyelitis History of diabetic ulcer of foot Hx of myocardial infarction found on testing Hx of osteomyelitis Hx of sepsis 06/2019 Hypertension Hypokalemia Hypothyroidism Ischemic cardiomyopathy Adams fracture Base of left fifth metatarsal, nonhealing x years Lymphedema Morbid obesity Peripheral arterial disease Rectal bleeding Sleep apnea BIPAP Sustained VT (ventricular tachycardia) T2DM (type 2 diabetes mellitus) Venous stasis ulcer of right lower leg with edema of right lower leg Vitamin D deficiency Surgical History H/O cardiac radiofrequency ablation OCTOBER 2019 ([facility] H/O foot surgery LEFT FOOT ULCER DEBRIDEMENT H/O shoulder surgery left History of cardiac cath V. tach -- no stent. 06/2019. unsure where it was done History of colonoscopy History of esophagogastroduodenoscopy (EGD) History of sinus surgery Hx of amputation of lesser toe Hx of tonsillectomy Family History Sister Family history of diabetes mellitus 2 Grandmother (Maternal) Family history of diabetes mellitus Grandfather (Maternal) Family history of diabetes mellitus Father Cancer Mother Cancer Other No family history of adverse response to anesthesia Social History Smoking Status: Never smoker Second Hand Exposure: No; Do You Dip or Chew Tobacco: No; Tobacco Cessation Education Requested by Patient: No Hx Alcohol Use: No Hx Substance Use: No Preferred Language: Mongolian Communication Ability: Effective 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 Beliefs That Will Affect Care: None marital status: Current Living Situation: Alone current occupational status: disabled How many Children do You have: 3 Feels Safe at Home: Yes Safety Concerns: Feels Safe At This Time Assistive Devices: Glasses Review of Systems Review of Systems: 14 systems reviewed and negative aside from HPI Physical Exam Constitutional: + morbidly obese, cooperative and comfortable; not in distress ENMT: Ears: no hearing impairment Neck: trachea midline Respiratory: normal respiratory effort, lungs clear to auscultation Auscultation: + diminished lung sounds Cardiovascular: Rate/Rhythm: + irregularly irregular Vessels: femoral pulses present and radial pulses present; + abnormal peripheral pulses Extremities: normal capillary refill, + pedal edema and + edema (+4 pitting) Gastrointestinal (Abdomen): Inspection/Auscultation: abdomen normal to inspection and normal bowel sounds Percussion/Palpation: abdomen soft; abdomen nontender Musculoskeletal: Extremities: + chronic stasis changes Skin: + ulcer, + wound (L foot dressing intact), + crusts, + erythema, + excoriations and + lichenification Neurologic: moves all extremities; no focal motor deficits and not confused Psychiatric: Orientation: alert and oriented x 3 Affect: + depressed affect Results & Data ([facility]) Vital Signs (Past 12 Hours) Vital Signs Temp Pulse Pulse Resp BP BP Pulse Ox 12/19/20 08:49 36.5 C 94 H 115/61 97 12/19/20 08:19 36.6 C 68 18 122/72 98 12/19/20 08:00 61 12/19/20 04:16 37.1 C 68 18 135/75 96
--- NOTE | 2020-12-19 13:12 | Pharmacy Report ---
Pharmacy Glycemic Short Note 2 - Date of Service December 19, 2020 - Glycemic Short BSG Results (Last 24 hours): 12/18/20 12/18/20 12/19/20 16:40 21:16 07:23 Glucose 176 H POC Glucose 244 H 143 H 12/19/20 12/19/20 07:38 11:49 Glucose POC Glucose 185 H 250 H OUTPATIENT ANTIDIABETIC REGIMEN: * Novolog pump - 2 units/hr ; CF 20, CR 4 * A1c 8.5% ASSESSMENT: 12/19 * BSGs elevated yesterday at 180, 241, 244, and 143 mg/dL * Received 91 units of insulin (55 units of basal, 36 units of prandial/correctional) * Fasting BSG again elevated at 185 mg/dL - will increase Lantus today to be 65 units total * Will also tighten carb ratio on Novolog after observed high with lunch 12/18 * BSGs reasonably well controlled yesterday, 174, 168, 164, and 176 mg/dL * Received 124 units of insulin, 55 units of basal and 69 units of prandial/correctional bolus * Fasting BSG of 180 mg/dL this morning, will continue current basal dose today, but if still elevated tomorrow will increase * Lunch BSG elevated at 241 mg/dL, likely due to patient eating full breakfast and refusing Novolog 12/16 * RN notified pharmacy that patient's pump "" this morning and he is unable to charge it. No family members able to bring him the necessary supplies. Pt requested change from pump to SQ basal bolus. * Pt known to pharmacy from previous admissions/glycemic consults. Will change to SQ basal bolus based on previous admissions and current insulin pump data. * Pre-lunch BSG is elevated because breakfast insulin coverage delayed. Will not make any changes to insulin orders in response to this hyperglycemic event 12/14 * 55 year old admitted with L foot osteo, type 2 diabetic managed on insulin pump at home. Known to glycemic service from other admissions. Typically does very well on insulin pump while hospitalized. Prior admissions he has managed himself on pump while NPO/diet and did well * Spoke with patient today and he would like to continue with insulin pump. He feels comfortable adjusting pump as he is NPO this morning * Patient aware that if blood sugars become unstable, we may need to take off pump PLAN FOR INPATIENT GLYCEMIC CONTROL: * Continue to hold insulin pump * Basal insulin - increase * Lantus 65 units SC daily * Bolus insulin - tighten carb ratio * NovoLog per scale ACHS * Goal range 110-140 mg/dl * CF= 10 mg/dl/unit * CR = 1 unit for every 3.5 g CHO consumed
[2020-12-19] MEDS ORDERED: INSULIN GLARGINE SOLOSTAR 100 UNITS/ML 3 ML PEN SC ONE (13:15)
[2020-12-19] MEDS: DAPTOmycin 650 MG in SYRINGE 0 ML IV SCH (17:04)
--- NOTE | 2020-12-19 17:22 | Hospitalist Progress Note ---
Date of Service December 19, 2020 Assessment & Plan (1) Diabetic infection of left foot: (2) Acute osteomyelitis of left foot: Plan: This is a 55-year-old medically complex male who has significant past medical history of chronic systolic and diastolic CHF, ischemic cardiomyopathy, CAD, history of SVT, AICD placement October 2019, PAF anticoagulated on warfarin, history of DVT on warfarin, HTN, HLD, CKD stage III baseline 1.5-1.7, NINA on BiPAP, asthma, insulin-dependent T2DM, diabetic peripheral neuropathy, hypothyroidism, chronic left nonhealing diabetic foot wound who presents to ED secondary to referral from wound care / to worsening of L foot wound and slu ggish PICC Line. Status post soft tissue debridement of left foot wound and bone biopsy left metatarsal confirming osteomyelitis on 11/23 at [facility]. Per records + Corynebacterium and Enterococcus. Placed on IV Unasyn every 6 hours, unknown compliance and for the past 3 days PICC line has been sluggish. Presents today with worsening of wound and pain. He does not meet criteria for SIRS/sepsis, but does have leukocytosis 12.91, ESR 1 or 2, CRP 13. pt with multiple wounds of L foot and lateral wound to R foot Blood cultures -negative Wound cultures-left foot ulcer is growing Corynebacterium species and Camila albicans/dubliniensis with yeast and right foot low counts of mixed isabel Continue IV Daptomycin and Zosyn -started in ED MRI of the left foot did show osteomyelitis Appreciate orthopedic input and recommendation-recommended to have him amputation of the left foot Appreciate ID input and recommendation to continue IV antibiotic for long time and also suggested to have surgery as well Discussed with the patient and he wanted to wait till Dr. Bates comes on Thursday and give him the definitive answer Fluconazole was added since yesterday to cover fungal species and will discuss with the ID whether to continue the antifungal or not Clinically remains stable and awaiting Dr. Callejas input DARRYL Has had lower extremity Dopplerdid not show any significant arterial o bstruction There were three advised to have amputation either BKA or AKA on the left side He will have vascular surgery evaluation determined the level of amputation is best for him He remains stable-wants to participate in the care management and is awaiting to hear from Dr. Bates about definitive management Ongoing back pain Complicated by posture in the hospital bed Will apply Voltaren gel locally twice daily Back pain is better His oral pain medications have been restarted Pain has been improving Bilateral feet pain More on the left than the right Has been on Dilaudid intravenously 0.5 mg every 4 hourly as needed With a change in the doses of Dilaudid for pain is better Severe anxiety Appreciate psychiatrist input and recommendation Has been getting Ativan as needed (3) Diabetic foot ulcer: Plan: pt with multiple wounds of L foot, L pretibial area and R lateral foot wound care/nurse consulted ortho consulted Await MRI result-as above Please see the picture of the wound to find out how is it Discussed with the ID specialist in [place] We will continue Diflucan and preference will be given to intravenous vancomycin For a total of 6 weeks (4) T2DM (type 2 diabetes mellitus): Plan: a1c 7.3 10/18/20 insulin pump consult glycemic pharmacy for assistance (5) CAD (coronary artery disease): Plan: Denies any acute cardiac symptoms of chest pain and palpitation (6) Ischemic cardiomyopathy: Plan: No acute symptoms Has AICD in situ Does not have any cardiac symptoms (7) CHF (congestive heart failure): Plan: Patient with mixed diastolic and systolic CHF Last echocardiogram 05/26/2019 showed EF 30 to 35% with large apical, septal, a nterior septal wall motion abnormality and akinesis He did have echo 07/2020; however very limited but documented EF Grossly normal daily weights, strict I and O saturating okay on room air pt c/o increased lower ext edema place on lasix IV 20mg BID continue metoprolol, aldactone, KCL hold statin 2/2 to dapto use-no shortness of breath and chest examination remained unremarkable No symptoms of fluid overload (8) Hypertension: Plan: Bp stable continue home meds (9) Atrial fibrillation: Plan: rate and rhythm controlled on metoprolol hold warfarin in setting of possible procedure (10) CKD (chronic kidney disease) stage 3, GFR 30-59 ml/min: Plan: Baseline creatinine 1.5-1.7 BUN/creatinine stable at 22 and 1.25 Monitor daily (11) NINA on CPAP: Plan: Bipap at HS (12) Morbid obesity: Plan: BMI 46.4 media manager consult ordered DVT ppx: INR therapeutic, warfarin on hold, place on SQ heparin when INR < 2 Dispo: PCU PCP: Francesco FULL CODE Admission and Anticipated Discharge Date Admission Date: December 13, 2020 Subjective 12/14/2020 The patient was seen and examined in the telemetry He is a status post MRI of the feet Denies any significant complaints and awaiting ID evaluation 12/15/2020 The patient was seen and examined in telemetry unit He complains to have pain in the left foot and back He blames the back pain on the bed that he has been on now in the hospital He denies any fever and/or chills 12/16/2020 The patient was seen and examined in telemetry unit His pain is controlled with intravenous doses of Dilaudid Denies any other acute symptoms No fever and/or chills 12/17/2020 The patient was seen and examined in telemetry unit He has been frustrated due to the long wait and to be seen by orthopedic surgeon Has been evaluated by psychiatrist Denies any significant symptoms 12/18/2020 The patient was seen and examined in telemetry unit He was seen by Dr. Bates and consulted vascular surgery to the decision about amputation either BKA or AKA Patient is getting very anxious and also frustrated 12/19/2020 The patient was seen and examined in telemetry unit He was seen by vascular surgery and was advised to have preferably AKA He wants to have definitive plan and wants to be involved with the care Physical Exam Physical Exam: Sitting at the edge of the bed without any acute symptoms Constitutional: well developed, well nourished and + obese; not ill appearing Eyes: PERRL, conjunctivae normal, anicteric sclerae ENMT: external ear and nose normal, oropharynx normal Neck: trachea midline, no thyromegaly Respiratory: no respiratory distress and no cough Auscultation: lungs clear to auscultation bilaterally Cardiovascular: Rate/Rhythm: regular rate and regular rhythm; not tachycardic Heart Sounds: normal S1 and normal S2; no murmur Extremities: + edema (Bilateral leg edema with chronic skin changes) Gastrointestinal (Abdomen): normal bowel sounds, soft, nontender, no hepatosplenomegaly Inspection/Auscultation: + abdomen distended and normal bowel sounds Percussion/Palpation: abdomen soft; abdomen nontender Musculoskeletal: Ankle: no deformity Neurologic: moves all extremities and + focal motor deficit Psychiatric: A+Ox3, euthymic affect Lymphatic: no cervical or axillary lymphadenopathy Results & Data Results & Data ([facility]) Vital Signs (Past 12 Hours) Vital Signs Temp Pulse Pulse Resp BP BP Pulse Ox 12/19/20 16:24 36.7 C 67 17 142/75 H 97 12/19/20 16:21 65 12/19/20 12:50 36.8 C 67 17 143/71 H 96 12/19/20 08:49 36.5 C 94 H 115/61 97 12/19/20 08:19 36.6 C 68 18 122/72 98 12/19/20 08:00 61 Laboratory Results Short CBC 12/19/20 Range/Units 07:23 WBC 9.74 (4.8-10.8) K/uL Hgb 10.5 L (14.0-18.0) g/dL Hct 33.6 L (42-52) % Plt Count 422 H (130-400) K/uL BMP 12/19/20 07:23 Sodium 138 Potassium 4.0 Chloride 105 Carbon Dioxide 28 BUN 18 Creatinine 1.19 Glucose 176 H Calcium 8.9 Medications Administered Current Inpatient Medications Acetaminophen (Acetaminophen 325 Mg Tab) 650 mg PO Q4H PRN PRN Reason: Pain or Fever Stop: 01/12/21 20:24 Hydrocodone Bitart/Acetaminophen (Hydrocodone/Acetamophen 5/325mg Tab) 1 tab PO Q6H PRN PRN Reason: Pain Stop: 12/31/20 12:12 Last Admin: 12/17/20 17:55 Dose: 1 tab Documented by: Al Hydrox/Mg Hydrox/Simethicone (Aluminum/Magnesium Susp 30 Ml Udc) 15 ml PO Q4H PRN PRN Reason: Dyspepsia Stop: 01/12/21 20:24 Albuterol (Albuterol Hfa 8 Gm Inhaler) 2 puffs INH QID PRN PRN Reason: SHORT OF BREATH Stop: 01/12/21 20:24 Aspirin (Aspirin 81 Mg Ectab) 81 mg PO QAM MATT Stop: 01/13/21 08:59 Last Admin: 12/19/20 08:16 Dose: 81 mg Documented by: Dextrose (Dextrose 50% 50 Ml Syringe) 25 - 50 ml IV UD PRN; Protocol PRN Reason: Hypoglycemia Protocol Stop: 01/12/21 20:24 Diclofenac Sodium (Diclofenac Sod 1% Gel 100 Gm Tube) 4 gm EXT BID MATT Stop: 01/14/21 11:14 Last Admin: 12/19/20 08:54 Dose: Not Given Documented by: Ergocalciferol (Ergocalciferol 50,000 Units 1250 Mcg Cap) 50,000 units PO Tu@0900 MATT Stop: 01/17/21 08:59 Last Admin: 12/18/20 10:00 Dose: 50,000 units Documented by: Fluticasone Propionate (Fluticasone Propionate Na Spr 16 Gm Btl) 2 sprays NA BID MATT Stop: 01/12/21 20:59 Last Admin: 12/19/20 08:16 Dose: 2 sprays Documented by: Fluticasone/Vilanterol (Fluticasone/Vilanterol 200/25mcg 14 Puffs/Inhaler) 1 puffs INH DAILY MATT Stop: 01/13/21 08:59 Last Admin: 12/19/20 08:17 Dose: 1 puffs Documented by: Gabapentin (Gabapentin 300 Mg Cap) 300 mg PO TID MATT Stop: 01/12/21 20:59 Last Admin: 12/19/20 12:56 Dose: 300 mg Documented by: Glucagon (Glucagon For Inj 1 Mg Vial) 1 mg SQ UD PRN; Protocol PRN Reason: Hypoglycemia Protocol Stop: 01/12/21 20:24 Glucose (Glucose 10 Tabs/Tube) 4 - 8 tabs PO UD PRN; Protocol PRN Reason: Hypoglycemia Protocol Stop: 01/12/21 20:24 Glucose (Glucose 40% Gel 15 Gm Tube) 15 - 30 gm PO UD PRN; Protocol PRN Reason: Hypoglycemia Protocol Stop: 01/12/21 20:24 Heparin Sodium (Beef Lung) (Heparin 10 Unit/Ml 5 Ml Flush) 5 ml FLUSH PRN PRN PRN Reason: Flush Stop: 01/13/21 23:54 Last Admin: 12/19/20 17:05 Dose: 5 ml Documented by: Hydromorphone HCl (Hydromorphone Inj 0.5 Mg/0.5 Ml Syr) 0.5 mg IV Q4H PRN PRN Reason: Pain Stop: 12/28/20 04:33 Last Admin: 12/19/20 13:04 Dose: 0.5 mg Documented by: Hyoscyamine (Hyoscyamine Sulfate 0.125 Mg Tab) 0.125 mg PO TID MATT Stop: 01/12/21 20:59 Last Admin: 12/19/20 12:54 Dose: 0.125 mg Documented by: Furosemide 20 mg/ Syringe 2 mls @ 4 mls/min IV [id number] MATT Stop: 01/13/21 08:59 Last Admin: 12/19/20 17:05 Dose: 4 mls/min Documented by: Daptomycin 650 mg/ Syringe 13 mls @ 6.5 mls/min IV Q24H [facility]; Protocol Stop: 01/25/21 16:59 Last Admin: 12/19/20 17:04 Dose: 6.5 mls/min Documented by: Piperacillin Sod/Tazobactam (Sod 4.5 gm/ Dextrose) 120 mls @ 30 mls/hr IV Q8H [facility]; Protocol Stop: 01/24/21 21:59 Last Infusion: 12/19/20 17:07 Dose: Infused Documented by: Lorazepam (Ativan) 0.5 mg in 1 mls @ 1 mls/min IV Q4H PRN PRN Reason: Agitation Stop: 01/17/21 10:55 Last Admin: 12/19/20 01:41 Dose: 1 mls/min Documented by: Insulin Aspart (Insulin Aspart 100 Units/Ml 3 Ml Pen) 0 units SC ACHS [facility] Stop: 01/15/21 08:59 Last Admin: 12/19/20 17:04 Dose: 24 units Documented by: Insulin Glargine (Insulin Glargine Solostar 100 Units/Ml 3 Ml Pen) 55 units SC DAILY MATT Stop: 01/15/21 08:59 Last Admin: 12/19/20 08:12 Dose: 55 units Documented by: Lactic Acid (Ammonium Lactate 12% Lotion 225 Gm Btl) 1 gm EXT BID [facility] Stop: 01/12/21 20:59 Last Admin: 12/19/20 08:54 Dose: Not Given Documented by: Levothyroxine Sodium (Levothyroxine Sodium 88 Mcg Tablet) 88 mcg PO DAILYBB [facility] Stop: 01/13/21 06:29 Last Admin: 12/19/20 06:01 Dose: 88 mcg Documented by: Magnesium Hydroxide (Magnesium Hydroxide Susp 30 Ml Udc) 30 ml PO Q12H PRN PRN Reason: Constipation Stop: 01/12/21 20:24 Magnesium Oxide (Magnesium Oxide 400 Mg Tab) 400 mg PO QAM [facility] Stop: 01/13/21 08:59 Last Admin: 12/19/20 08:14 Dose: 400 mg Documented by: Metoprolol Succinate (Metoprolol Succ 50mg Ext Rel Tab) 50 mg PO BID [facility] Stop: 01/12/21 20:59 Last Admin: 12/19/20 08:54 Dose: 50 mg Documented by: Metoprolol Succinate (Metoprolol Succ 25mg Ext Rel Tab) 25 mg PO BID [facility] Stop: 01/12/21 20:59 Last Admin: 12/19/20 08:54 Dose: 25 mg Documented by: Miscellaneous (Carbohydrates For Hypoglycemia ) 15 - 30 gm PO UD PRN PRN Reason: Hypoglycemia Protocol Stop: 01/12/21 20:24 Miscellaneous Information (Pharmacy Glycemic Mgmt Consult) 1 ea N/A UD PRN; Protocol PRN Reason: Consult Stop: 01/12/21 20:24 Miscellaneous Information (Daptomycin Consult Active) 1 ea N/A UD PRN PRN Reason: Consult Stop: 01/12/21 20:55 Miscellaneous Information (Piperacill/Tazobac Consult Active) 0 ea N/A UD PRN PRN Reason: Consult Stop: 01/12/21 20:24 Ondansetron HCl (Ondansetron Inj 2 Mg/Ml 2 Ml Vial) 4 mg IV Q6H PRN PRN Reason: Nausea Stop: 01/12/21 20:24 Pantoprazole Sodium (Pantoprazole 40 Mg Tab) 40 mg PO QAM [facility] Stop: 01/13/21 08:59 Last Admin: 12/19/20 08:14 Dose: 40 mg Documented by: Polyethylene Glycol (Polyethylene (Miralax) 17 Gm Pack) 17 gm PO DAILY PRN PRN Reason: Constipation Stop: 01/12/21 20:24 Potassium Chloride (Potassium Chloride Crtab 20 Meq Tabcr) 20 meq PO DAILY [facility] Stop: 01/13/21 08:59 Last Admin: 12/19/20 08:15 Dose: 20 meq Documented by: Spironolactone (Spironolactone 25 Mg Tab) 25 mg PO DAILY [facility] Stop: 01/13/21 08:59 Last Admin: 12/19/20 08:15 Dose: 25 mg Documented by:
[2020-12-20] MEDS: HYDROCODONE/ACETAMOPHEN 5/325MG TAB PO PRN ×2 (01:29→19:51)
[2020-12-20] MEDS: HYDROmorphone INJ 0.5 MG/0.5 ML SYR IV PRN ×4 (03:10→22:10)
[2020-12-20] MEDS: PIPERACILLIN/TAZOBACTAM 4.5 GM in DEXTROSE 5% 100 ML IV SCH ×3 (06:10→19:46)
[2020-12-20] MEDS: LEVOTHYROXINE SODIUM 88 MCG TABLET PO SCH (06:11)
[2020-12-20] MEDS: INSULIN ASPART 100 UNITS/ML 3 ML PEN SC SCH ×4 (08:32→19:47)
[2020-12-20] MEDS: INSULIN GLARGINE SOLOSTAR 100 UNITS/ML 3 ML PEN SC SCH (08:32)
[2020-12-20] MEDS: FLUTICASONE PROPIONATE NA SPR 16 GM BTL SCH ×2 (08:34→19:33)
[2020-12-20] MEDS: FUROSEMIDE 20 MG in SYRINGE 0 ML IV SCH ×2 (08:35→17:03)
[2020-12-20] MEDS: FLUTICASONE/VILANTEROL 200/25MCG 14 PUFFS/INHALER INH SCH (08:35)
[2020-12-20] MEDS: ASPIRIN 81 MG ECTAB PO SCH (08:36)
[2020-12-20] MEDS: HYOSCYAMINE SULFATE 0.125 MG TAB PO SCH ×3 (08:37→19:34)
[2020-12-20] MEDS: PANTOprazole 40 MG TAB PO SCH (08:37)
[2020-12-20] MEDS: MAGNESIUM OXIDE 400 MG TAB PO SCH (08:37)
[2020-12-20] MEDS: POTASSIUM CHLORIDE CRTAB 20 MEQ TABCR PO SCH (08:38)
[2020-12-20] MEDS: SPIRONOLACTONE 25 MG TAB PO SCH (08:38)
[2020-12-20] MEDS: GABAPENTIN 300 MG CAP PO SCH ×3 (08:38→19:33)
[2020-12-20] MEDS: AMMONIUM LACTATE 12% LOTION 225 GM BTL EXT SCH ×2 (10:22→19:33)
[2020-12-20] MEDS: METOPROLOL SUCC 25MG EXT REL TAB PO SCH ×2 (10:23→19:36)
[2020-12-20] MEDS: DICLOFENAC SOD 1% GEL 100 GM TUBE EXT SCH ×2 (10:23→19:33)
[2020-12-20] MEDS: METOPROLOL SUCC 50MG EXT REL TAB PO SCH ×2 (10:23→19:36)
[2020-12-20] MEDS: DAPTOmycin 650 MG in SYRINGE 0 ML IV SCH (17:06)
--- NOTE | 2020-12-20 17:48 | Hospitalist Progress Note ---
Date of Service December 20, 2020 Assessment & Plan (1) Diabetic infection of left foot: (2) Acute osteomyelitis of left foot: Plan: This is a 55-year-old medically complex male who has significant past medical history of chronic systolic and diastolic CHF, ischemic cardiomyopathy, CAD, history of SVT, AICD placement October 2019, PAF anticoagulated on warfarin, history of DVT on warfarin, HTN, HLD, CKD stage III baseline 1.5-1.7, NINA on BiPAP, asthma, insulin-dependent T2DM, diabetic peripheral neuropathy, hypothyroidism, chronic left nonhealing diabetic foot wound who presents to ED secondary to referral from wound care / to worsening of L foot wound and slu ggish PICC Line. Status post soft tissue debridement of left foot wound and bone biopsy left metatarsal confirming osteomyelitis on 11/23 at [facility]. Per records + Corynebacterium and Enterococcus. Placed on IV Unasyn every 6 hours, unknown compliance and for the past 3 days PICC line has been sluggish. Presents today with worsening of wound and pain. He does not meet criteria for SIRS/sepsis, but does have leukocytosis 12.91, ESR 1 or 2, CRP 13. pt with multiple wounds of L foot and lateral wound to R foot Blood cultures -negative Wound cultures-left foot ulcer is growing Corynebacterium species and Camila albicans/dubliniensis with yeast and right foot low counts of mixed isabel Continue IV Daptomycin and Zosyn -started in ED MRI of the left foot did show osteomyelitis Appreciate orthopedic input and recommendation-recommended to have him amputation of the left foot Appreciate ID input and recommendation to continue IV antibiotic for long time and also suggested to have surgery as well Discussed with the patient and he wanted to wait till Dr. Bates comes on Thursday and give him the definitive answer Fluconazole was added since yesterday to cover fungal species and will discuss with the ID whether to continue the antifungal or not Clinically remains stable and awaiting Dr. Callejas input DARRYL Has had lower extremity Dopplerdid not show any significant arterial o bstruction There were three advised to have amputation either BKA or AKA on the left side He will have vascular surgery evaluation determined the level of amputation is best for him He remains stable-wants to participate in the care management and is awaiting to hear from Dr. Bates about definitive management Ongoing back pain Complicated by posture in the hospital bed Will apply Voltaren gel locally twice daily Back pain is better His oral pain medications have been restarted Pain has been improving Bilateral feet pain More on the left than the right Has been on Dilaudid intravenously 0.5 mg every 4 hourly as needed With a change in the doses of Dilaudid for pain is better His pain is off-and-on and has been asking for more pain medications Severe anxiety Appreciate psychiatrist input and recommendation Has been getting Ativan as needed Does not have any more anxiety but gets agitated at times (3) Diabetic foot ulcer: Plan: pt with multiple wounds of L foot, L pretibial area and R lateral foot wound care/nurse consulted ortho consulted Await MRI result-as above Please see the picture of the wound to find out how is it Discussed with the ID specialist in [place] We will continue Diflucan and preference will be given to intravenous vancomycin For a total of 6 weeks (4) T2DM (type 2 diabetes mellitus): Plan: a1c 7.3 10/18/20 insulin pump consult glycemic pharmacy for assistance (5) CAD (coronary artery disease): Plan: Denies any acute cardiac symptoms of chest pain and palpitation No acute cardiac symptoms (6) Ischemic cardiomyopathy: Plan: No acute symptoms Has AICD in situ Does not have any cardiac symptoms (7) CHF (congestive heart failure): Plan: Patient with mixed diastolic and systolic CHF Last echocardiogram 05/26/2019 showed EF 30 to 35% with large apical, septal, anterior septal wall motion abnormality and akinesis He did have echo 07/2020; however very limited but documented EF Grossly normal daily weights, strict I and O saturating okay on room air pt c/o increased lower ext edema place on lasix IV 20mg BID continue metoprolol, aldactone, KCL hold statin 2/2 to dapto use-no shortness of breath and chest examination remained unremarkable No symptoms of fluid overload (8) Hypertension: Plan: Bp stable continue home meds (9) Atrial fibrillation: Plan: rate and rhythm controlled on metoprolol hold warfarin in setting of possible procedure (10) CKD (chronic kidney disease) stage 3, GFR 30-59 ml/min: Plan: Baseline creatinine 1.5-1.7 BUN/creatinine stable at 22 and 1.25 Monitor daily (11) NINA on CPAP: Plan: Bipap at HS (12) Morbid obesity: Plan: 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 46.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 DVT ppx: INR therapeutic, warfarin on hold, place on SQ heparin when INR < 2 Dispo: PCU PCP: Francesco FULL CODE Admission and Anticipated Discharge Date Admission Date: December 13, 2020 Subjective 12/14/2020 The patient was seen and examined in the telemetry He is a status post MRI of the feet Denies any significant complaints and awaiting ID evaluation 12/15/2020 The patient was seen and examined in telemetry unit He complains to have pain in the left foot and back He blames the back pain on the bed that he has been on now in the hospital He denies any fever and/or chills 12/16/2020 The patient was seen and examined in telemetry unit His pain is controlled with intravenous doses of Dilaudid Denies any other acute symptoms No fever and/or chills 12/17/2020 The patient was seen and examined in telemetry unit He has been frustrated due to the long wait and to be seen by orthopedic surgeon Has been evaluated by psychiatrist Denies any significant symptoms 12/18/2020 The patient was seen and examined in telemetry unit He was seen by Dr. Bates and consulted vascular surgery to the decision about amputation either BKA or AKA Patient is getting very anxious and also frustrated 12/19/2020 The patient was seen and examined in telemetry unit He was seen by vascular surgery and was advised to have preferably AKA He wants to have definitive plan and wants to be involved with the care 12/20/2020 The patient was seen and examined in telemetry unit He remained stable and is sitting on a chair without any acute distress He complains of pain in the legs though Review of Systems Review of Systems: All systems reviewed and unremarkable except as noted below Musculoskeletal: Bilateral foot pain. Bilateral chronic skin changes. Both feet are in bandage Physical Exam Physical Exam: Sitting on his recliner Constitutional: well developed, well nourished and + obese; not ill appearing Eyes: PERRL, conjunctivae normal, anicteric sclerae ENMT: external ear and nose normal, oropharynx normal Neck: trachea midline, no thyromegaly Respiratory: no respiratory distress and no cough Auscultation: lungs clear to auscultation bilaterally Cardiovascular: Rate/Rhythm: regular rate and regular rhythm; not tachycardic Heart Sounds: normal S1 and normal S2; no murmur Extremities: + edema (Bilateral leg edema with chronic skin changes) Gastrointestinal (Abdomen): normal bowel sounds, soft, nontender, no hepatosplenomegaly Inspection/Auscultation: + abdomen distended and normal bowel sounds Percussion/Palpation: abdomen soft; abdomen nontender Musculoskeletal: Ankle: no deformity Neurologic: moves all extremities and + focal motor deficit Psychiatric: A+Ox3, euthymic affect Lymphatic: no cervical or axillary lymphadenopathy Results & Data Results & Data ([facility]) Vital Signs (Past 12 Hours) Vital Signs Temp Pulse Pulse Resp BP Pulse Ox 12/20/20 15:56 36.4 C L 64 20 163/82 H 98 12/20/20 11:53 36.3 C L 60 20 144/77 H 99 12/20/20 10:21 71 143/77 H 12/20/20 08:07 36.5 C 59 L 20 132/77 99 12/20/20 08:00 59 L Laboratory Results Cardiac Enzymes 12/20/20 Range/Units 11:10 Total Creatine Kinase 37 L (39-308) U/L Medications Administered Current Inpatient Medications Acetaminophen (Acetaminophen 325 Mg Tab) 650 mg PO Q4H PRN PRN Reason: Pain or Fever Stop: 01/12/21 20:24 Hydrocodone Bitart/Acetaminophen (Hydrocodone/Acetamophen 5/325mg Tab) 1 tab PO Q6H PRN PRN Reason: Pain Stop: 12/31/20 12:12 Last Admin: 12/20/20 01:29 Dose: 1 tab Documented by: Al Hydrox/Mg Hydrox/Simethicone (Aluminum/Magnesium Susp 30 Ml Udc) 15 ml PO Q4H PRN PRN Reason: Dyspepsia Stop: 01/12/21 20:24 Albuterol (Albuterol Hfa 8 Gm Inhaler) 2 puffs INH QID PRN PRN Reason: SHORT OF BREATH Stop: 01/12/21 20:24 Aspirin (Aspirin 81 Mg Ectab) 81 mg PO QAM MATT Stop: 01/13/21 08:59 Last Admin: 12/20/20 08:36 Dose: 81 mg Documented by: Dextrose (Dextrose 50% 50 Ml Syringe) 25 - 50 ml IV UD PRN; Protocol PRN Reason: Hypoglycemia Protocol Stop: 01/12/21 20:24 Diclofenac Sodium (Diclofenac Sod 1% Gel 100 Gm Tube) 4 gm EXT BID [facility] Stop: 01/14/21 11:14 Last Admin: 12/20/20 10:23 Dose: Not Given Documented by: Ergocalciferol (Ergocalciferol 50,000 Units 1250 Mcg Cap) 50,000 units PO Tu@0900 [facility] Stop: 01/17/21 08:59 Last Admin: 12/18/20 10:00 Dose: 50,000 units Documented by: Fluticasone Propionate (Fluticasone Propionate Na Spr 16 Gm Btl) 2 sprays NA BID MATT Stop: 01/12/21 20:59 Last Admin: 12/20/20 08:34 Dose: 2 sprays Documented by: Fluticasone/Vilanterol (Fluticasone/Vilanterol 200/25mcg 14 Puffs/Inhaler) 1 puffs INH DAILY [facility] Stop: 01/13/21 08:59 Last Admin: 12/20/20 08:35 Dose: 1 puffs Documented by: Gabapentin (Gabapentin 300 Mg Cap) 300 mg PO TID MATT Stop: 01/12/21 20:59 Last Admin: 12/20/20 14:11 Dose: 300 mg Documented by: Glucagon (Glucagon For Inj 1 Mg Vial) 1 mg SQ UD PRN; Protocol PRN Reason: Hypoglycemia Protocol Stop: 01/12/21 20:24 Glucose (Glucose 10 Tabs/Tube) 4 - 8 tabs PO UD PRN; Protocol PRN Reason: Hypoglycemia Protocol Stop: 01/12/21 20:24 Glucose (Glucose 40% Gel 15 Gm Tube) 15 - 30 gm PO UD PRN; Protocol PRN Reason: Hypoglycemia Protocol Stop: 01/12/21 20:24 Heparin Sodium (Beef Lung) (Heparin 10 Unit/Ml 5 Ml Flush) 5 ml FLUSH PRN PRN PRN Reason: Flush Stop: 01/13/21 23:54 Last Admin: 12/20/20 17:06 Dose: 5 ml Documented by: Hydromorphone HCl (Hydromorphone Inj 0.5 Mg/0.5 Ml Syr) 0.5 mg IV Q4H PRN PRN Reason: Pain Stop: 12/28/20 04:33 Last Admin: 12/20/20 14:11 Dose: 0.5 mg Documented by: Hyoscyamine (Hyoscyamine Sulfate 0.125 Mg Tab) 0.125 mg PO TID [facility] Stop: 01/12/21 20:59 Last Admin: 12/20/20 14:11 Dose: 0.125 mg Documented by: Furosemide 20 mg/ Syringe 2 mls @ 4 mls/min IV BID17 [facility] Stop: 01/13/21 08:59 Last Admin: 12/20/20 17:03 Dose: 4 mls/min Documented by: Daptomycin 650 mg/ Syringe 13 mls @ 6.5 mls/min IV Q24H [facility]; Protocol Stop: 01/25/21 16:59 Last Admin: 12/20/20 17:06 Dose: 6.5 mls/min Documented by: Piperacillin Sod/Tazobactam (Sod 4.5 gm/ Dextrose) 120 mls @ 30 mls/hr IV Q8H [facility]; Protocol Stop: 01/24/21 21:59 Last Infusion: 12/20/20 17:07 Dose: Infused Documented by: Lorazepam (Ativan) 0.5 mg in 1 mls @ 1 mls/min IV Q4H PRN PRN Reason: Agitation Stop: 01/17/21 10:55 Last Admin: 12/19/20 20:03 Dose: 1 mls/min Documented by: Insulin Aspart (Insulin Aspart 100 Units/Ml 3 Ml Pen) 0 units SC ACHS [facility] Stop: 01/15/21 08:59 Last Admin: 12/20/20 17:03 Dose: 28 units Documented by: Insulin Glargine (Insulin Glargine Solostar 100 Units/Ml 3 Ml Pen) 65 units SC DAILY [facility] Stop: 01/19/21 08:59 Last Admin: 12/20/20 08:32 Dose: 65 units Documented by: Lactic Acid (Ammonium Lactate 12% Lotion 225 Gm Btl) 1 gm EXT BID [facility] Stop: 01/12/21 20:59 Last Admin: 12/20/20 10:22 Dose: Not Given Documented by: Levothyroxine Sodium (Levothyroxine Sodium 88 Mcg Tablet) 88 mcg PO DAILYBB [facility] Stop: 01/13/21 06:29 Last Admin: 12/20/20 06:11 Dose: 88 mcg Documented by: Magnesium Hydroxide (Magnesium Hydroxide Susp 30 Ml Udc) 30 ml PO Q12H PRN PRN Reason: Constipation Stop: 01/12/21 20:24 Magnesium Oxide (Magnesium Oxide 400 Mg Tab) 400 mg PO QAM [facility] Stop: 01/13/21 08:59 Last Admin: 12/20/20 08:37 Dose: 400 mg Documented by: Metoprolol Succinate (Metoprolol Succ 50mg Ext Rel Tab) 50 mg PO BID [facility] Stop: 01/12/21 20:59 Last Admin: 12/20/20 10:23 Dose: 50 mg Documented by: Metoprolol Succinate (Metoprolol Succ 25mg Ext Rel Tab) 25 mg PO BID [facility] Stop: 01/12/21 20:59 Last Admin: 12/20/20 10:23 Dose: 25 mg Documented by: Miscellaneous (Carbohydrates For Hypoglycemia ) 15 - 30 gm PO UD PRN PRN Reason: Hypoglycemia Protocol Stop: 01/12/21 20:24 Miscellaneous Information (Pharmacy Glycemic Mgmt Consult) 1 ea N/A UD PRN; Protocol PRN Reason: Consult Stop: 01/12/21 20:24 Miscellaneous Information (Daptomycin Consult Active) 1 ea N/A UD PRN PRN Reason: Consult Stop: 01/12/21 20:55 Miscellaneous Information (Piperacill/Tazobac Consult Active) 0 ea N/A UD PRN PRN Reason: Consult Stop: 01/12/21 20:24 Ondansetron HCl (Ondansetron Inj 2 Mg/Ml 2 Ml Vial) 4 mg IV Q6H PRN PRN Reason: Nausea Stop: 01/12/21 20:24 Pantoprazole Sodium (Pantoprazole 40 Mg Tab) [facility] Stop: 01/13/21 08:59 Last Admin: 12/20/20 08:37 Dose: 40 mg Documented by: Polyethylene Glycol (Polyethylene (Miralax) 17 Gm Pack) 17 gm PO DAILY PRN PRN Reason: Constipation Stop: 01/12/21 20:24 Potassium Chloride (Potassium Chloride Crtab 20 Meq Tabcr) 20 meq PO DAILY [facility] Stop: 01/13/21 08:59 Last Admin: 12/20/20 08:38 Dose: 20 meq Documented by: Spironolactone (Spironolactone 25 Mg Tab) 25 mg PO DAILY [facility] Stop: 01/13/21 08:59 Last Admin: 12/20/20 08:38 Dose: 25 mg Documented by:
[2020-12-21] MEDS: HYDROmorphone INJ 0.5 MG/0.5 ML SYR IV PRN ×3 (02:28→13:50)
[2020-12-21] MEDS: PIPERACILLIN/TAZOBACTAM 4.5 GM in DEXTROSE 5% 100 ML IV SCH ×2 (05:49→13:54)
[2020-12-21] MEDS: LEVOTHYROXINE SODIUM 88 MCG TABLET PO SCH (05:49)
[2020-12-21] MEDS: INSULIN GLARGINE SOLOSTAR 100 UNITS/ML 3 ML PEN SC SCH (09:08)
[2020-12-21] MEDS: INSULIN ASPART 100 UNITS/ML 3 ML PEN SC SCH ×3 (09:08→17:35)
[2020-12-21] MEDS: FUROSEMIDE 20 MG in SYRINGE 0 ML IV SCH ×2 (09:11→17:36)
[2020-12-21] MEDS: FLUTICASONE/VILANTEROL 200/25MCG 14 PUFFS/INHALER INH SCH (09:11)
[2020-12-21] MEDS: FLUTICASONE PROPIONATE NA SPR 16 GM BTL SCH (09:11)
[2020-12-21] MEDS: METOPROLOL SUCC 50MG EXT REL TAB PO SCH (09:13)
[2020-12-21] MEDS: PANTOprazole 40 MG TAB PO SCH (09:13)
[2020-12-21] MEDS: HYOSCYAMINE SULFATE 0.125 MG TAB PO SCH ×2 (09:13→13:50)
[2020-12-21] MEDS: MAGNESIUM OXIDE 400 MG TAB PO SCH (09:13)
[2020-12-21] MEDS: ASPIRIN 81 MG ECTAB PO SCH (09:13)
[2020-12-21] MEDS: SPIRONOLACTONE 25 MG TAB PO SCH (09:13)
[2020-12-21] MEDS: METOPROLOL SUCC 25MG EXT REL TAB PO SCH (09:14)
[2020-12-21] MEDS: POTASSIUM CHLORIDE CRTAB 20 MEQ TABCR PO SCH (09:16)
[2020-12-21] MEDS: GABAPENTIN 300 MG CAP PO SCH ×2 (09:17→13:50)
[2020-12-21] MEDS: DICLOFENAC SOD 1% GEL 100 GM TUBE EXT SCH (09:17)
[2020-12-21] MEDS: AMMONIUM LACTATE 12% LOTION 225 GM BTL EXT SCH (09:18)
--- NOTE | 2020-12-21 11:23 | Pharmacy Report ---
Pharmacy Glycemic Short Note 2 - Date of Service December 21, 2020 - Glycemic Short BSG Results (Last 24 hours): 12/20/20 12/20/20 12/20/20 11:28 16:36 19:30 POC Glucose 234 H 139 H 107 H 12/21/20 07:19 POC Glucose 192 H OUTPATIENT ANTIDIABETIC REGIMEN: * Novolog pump - 2 units/hr ; CF 20, CR 4 * A1c 8.5% ASSESSMENT: 12/21 * Patient now has pump available for use * Lantus already given this morning, so discussed with patient and will plan to resume pump tomorrow morning (12/22/20), orders placed * Continue with current SC Lantus/Novolog orders for today 12/19 * BSGs elevated yesterday at 180, 241, 244, and 143 mg/dL * Received 91 units of insulin (55 units of basal, 36 units of prandial/correctional) * Fasting BSG again elevated at 185 mg/dL - will increase Lantus today to be 65 units total * Will also tighten carb ratio on Novolog after observed high with lunch 12/16 * RN notified pharmacy that patient's pump "" this morning and he is unable to charge it. No family members able to bring him the necessary supplies. Pt requested change from pump to SQ basal bolus. * Pt known to pharmacy from previous admissions/glycemic consults. Will change to SQ basal bolus based on previous admissions and current insulin pump data. * Pre-lunch BSG is elevated because breakfast insulin coverage delayed. Will not make any changes to insulin orders in response to this hyperglycemic event 12/14 * 55 year old admitted with L foot osteo, type 2 diabetic managed on insulin pump at home. Known to glycemic service from other admissions. Typically does very well on insulin pump while hospitalized. Prior admissions he has managed himself on pump while NPO/diet and did well * Spoke with patient today and he would like to continue with insulin pump. He feels comfortable adjusting pump as he is NPO this morning * Patient aware that if blood sugars become unstable, we may need to take off pump PLAN FOR INPATIENT GLYCEMIC CONTROL: * Continue to hold insulin pump - restart tomorrow morning * Basal insulin - continue * Lantus 65 units SC daily * Bolus insulin - continue * NovoLog per scale ACHS * Goal range 110-140 mg/dl * CF= 10 mg/dl/unit * CR = 1 unit for every 3 g CHO consumed PLAN FOR DISCHARGE: * HbA1c of 8.5% is above goal of less than 7% * Continue insulin pump on discharge * Patient follows with [facility] - ensure timely outpatient follow-up with them for insulin pump adjustments
--- NOTE | 2020-12-21 15:19 | Hospitalist Progress Note ---
Date of Service December 21, 2020 Assessment & Plan (1) Diabetic infection of left foot: (2) Acute osteomyelitis of left foot: Plan: This is a 55-year-old medically complex male who has significant past medical history of chronic systolic and diastolic CHF, ischemic cardiomyopathy, CAD, history of SVT, AICD placement October 2019, PAF anticoagulated on warfarin, history of DVT on warfarin, HTN, HLD, CKD stage III baseline 1.5-1.7, NINA on BiPAP, asthma, insulin-dependent T2DM, diabetic peripheral neuropathy, hypothyroidism, chronic left nonhealing diabetic foot wound who presents to ED secondary to referral from wound care / to worsening of L foot wound and slug gerard PICC Line. Status post soft tissue debridement of left foot wound and bone biopsy left metatarsal confirming osteomyelitis on 11/23 at [facility]. Per records + Corynebacterium and Enterococcus. Placed on IV Unasyn every 6 hours, unknown compliance and for the past 3 days PICC line has been sluggish. Presents today with worsening of wound and pain. He does not meet criteria for SIRS/sepsis, but does have leukocytosis 12.91, ESR 1 or 2, CRP 13. pt with multiple wounds of L foot and lateral wound to R foot Blood cultures -negative Wound cultures-left foot ulcer is growing Corynebacterium species and Camila albicans/dubliniensis with yeast and right foot low counts of mixed isabel Continue IV Daptomycin and Zosyn -started in ED MRI of the left foot did show osteomyelitis Appreciate orthopedic input and recommendation-recommended to have him amputation of the left foot Appreciate ID input and recommendation to continue IV antibiotic for long time and also suggested to have surgery as well Discussed with the patient and he wanted to wait till Dr. Bates comes on Thursday and give him the definitive answer Fluconazole was added since yesterday to cover fungal species and will discuss with the ID whether to continue the antifungal or not Clinically remains stable and awaiting Dr. Callejas input DARRYL Has had lower extremity Dopplerdid not show any significant arterial ob struction There were three advised to have amputation either BKA or AKA on the left side He will have vascular surgery evaluation determined the level of amputation is best for him He remains stable-wants to participate in the care management and is awaiting to hear from Dr. Bates about definitive management Discussed with Dr. Bates who will see him shortly Discussed with Dr. Bates who is arranging for definitive AKA on Thursday by Dr. Gonzalez. This was discussed with the patient in detail and was strongly advised not to leave the hospital then he will lose the opportunity to have the amputa tion on Thursday. He clearly stated that he understands the consequences of not having it done on Thursday if he leaves the hospital. He clearly understood that his condition may get worse and he may have further complication at home. After long discussion he decided to go home and he was sent home this afternoon. Ongoing back pain Complicated by posture in the hospital bed Will apply Voltaren gel locally twice daily Back pain is better His oral pain medications have been restarted Pain has been improving Bilateral feet pain More on the left than the right Has been on Dilaudid intravenously 0.5 mg every 4 hourly as needed With a change in the doses of Dilaudid for pain is better His pain is off-and-on and has been asking for more pain medications Severe anxiety Appreciate psychiatrist input and recommendation Has been getting Ativan as needed Does not have any more anxiety but gets agitated at times (3) Diabetic foot ulcer: Plan: pt with multiple wounds of L foot, L pretibial area and R lateral foot wound care/nurse consulted ortho consulted Await MRI result-as above Please see the picture of the wound to find out how is it Discussed with the ID specialist in [place] We will continue Diflucan and preference will be given to intravenous vancomycin Discussed with ID in [place] and will continue with daptomycin for a total of 6 weeks Prescription has been given to home health nurse (4) T2DM (type 2 diabetes mellitus): Plan: a1c 7.3 10/18/20 insulin pump consult glycemic pharmacy for assistance (5) CAD (coronary artery disease): Plan: Denies any acute cardiac symptoms of chest pain and palpitation No acute cardiac symptoms (6) Ischemic cardiomyopathy: Plan: No acute symptoms Has AICD in situ Does not have any cardiac symptoms (7) CHF (congestive heart failure): Plan: Patient with mixed diastolic and systolic CHF Last echocardiogram 05/26/2019 showed EF 30 to 35% with large apical, septal, anterior septal wall motion abnormality and akinesis He did have echo 07/2020; however very limited but documented EF Grossly normal daily weights, strict I and O saturating okay on room air pt c/o increased lower ext edema place on lasix IV 20mg BID continue metoprolol, aldactone, KCL hold statin 2/2 to dapto use-no shortness of breath and chest examination remained unremarkable No symptoms of fluid overload-we will continue his outpatient diuretics (8) Hypertension: Plan: Bp stable continue home meds (9) Atrial fibrillation: Plan: rate and rhythm controlled on metoprolol hold warfarin in setting of possible procedure (10) CKD (chronic kidney disease) stage 3, GFR 30-59 ml/min: Plan: Baseline creatinine 1.5-1.7 BUN/creatinine stable at 22 and 1.25 Monitor daily (11) NINA on CPAP: Plan: Bipap at HS (12) Morbid obesity: Plan: BMI 46.4 director of assisted living consult ordered DVT ppx: INR therapeutic, warfarin on hold, place on SQ heparin when INR < 2 Dispo: PCU PCP: Francesco FULL CODE Plan: He wanted to go home no matter what is a schedule or not He was advised to nonweight-bear on left foot and continue with IV antibiotic Very strongly advised to have a follow-up appointment with [facility] orthopedic surgeon of his choice within the next week as he wanted to have a second opinion He did not want to be transferred to [facility] today Admission and Anticipated Discharge Date Admission Date: December 13, 2020 Subjective 12/14/2020 The patient was seen and examined in the telemetry He is a status post MRI of the feet Denies any significant complaints and awaiting ID evaluation 12/15/2020 The patient was seen and examined in telemetry unit He complains to have pain in the left foot and back He blames the back pain on the bed that he has been on now in the hospital He denies any fever and/or chills 12/16/2020 The patient was seen and examined in telemetry unit His pain is controlled with intravenous doses of Dilaudid Denies any other acute symptoms No fever and/or chills 12/17/2020 The patient was seen and examined in telemetry unit He has been frustrated due to the long wait and to be seen by orthopedic surgeon Has been evaluated by psychiatrist Denies any significant symptoms 12/18/2020 The patient was seen and examined in telemetry unit He was seen by Dr. Bates and consulted vascular surgery to the decision about amputation either BKA or AKA Patient is getting very anxious and also frustrated 12/19/2020 The patient was seen and examined in telemetry unit He was seen by vascular surgery and was advised to have preferably AKA He wants to have definitive plan and wants to be involved with the care 12/20/2020 The patient was seen and examined in telemetry unit He remained stable and is sitting on a chair without any acute distress He complains of pain in the legs though 12/21/2020 The patient was seen and examined in telemetry unit He remained stable and has been waiting to see Dr. Bates for definitive management plan He denies any symptoms and wants to be discharged today Review of Systems Review of Systems: All systems reviewed and unremarkable except as noted below Musculoskeletal: Bilateral foot pain. Bilateral chronic skin changes. Both feet are in bandage Physical Exam Physical Exam: Sitting on his recliner Constitutional: well developed, well nourished and + obese; not ill appearing Eyes: PERRL, conjunctivae normal, anicteric sclerae ENMT: external ear and nose normal, oropharynx normal Neck: trachea midline, no thyromegaly Respiratory: no respiratory distress and no cough Auscultation: lungs clear to auscultation bilaterally Cardiovascular: Rate/Rhythm: regular rate and regular rhythm; not tachycardic Heart Sounds: normal S1 and normal S2; no murmur Extremities: + edema (Bilateral leg edema with chronic skin changes) Gastrointestinal (Abdomen): normal bowel sounds, soft, nontender, no hepatosplenomegaly Inspection/Auscultation: + abdomen distended and normal bowel sounds Percussion/Palpation: abdomen soft; abdomen nontender Musculoskeletal: Ankle: no deformity Neurologic: moves all extremities and + focal motor deficit Psychiatric: A+Ox3, euthymic affect Lymphatic: no cervical or axillary lymphadenopathy Results & Data Results & Data ([facility]) Vital Signs (Past 12 Hours) Vital Signs Temp Pulse Pulse Resp BP Pulse Ox 12/21/20 11:51 36.7 C 74 18 154/73 H 95 12/21/20 07:51 36.9 C 72 19 146/72 H 96 12/21/20 07:23 65 12/21/20 04:34 36.5 C 65 18 155/84 H 99 Medications Administered Current Inpatient Medications Acetaminophen (Acetaminophen 325 Mg Tab) 650 mg PO Q4H PRN PRN Reason: Pain or Fever Stop: 01/12/21 20:24 Hydrocodone Bitart/Acetaminophen (Hydrocodone/Acetamophen 5/325mg Tab) 1 tab PO Q6H PRN PRN Reason: Pain Stop: 12/31/20 12:12 Last Admin: 12/20/20 19:51 Dose: 1 tab Documented by: Al Hydrox/Mg Hydrox/Simethicone (Aluminum/Magnesium Susp 30 Ml Udc) 15 ml PO Q4H PRN PRN Reason: Dyspepsia Stop: 01/12/21 20:24 Albuterol (Albuterol Hfa 8 Gm Inhaler) 2 puffs INH QID PRN PRN Reason: SHORT OF BREATH Stop: 01/12/21 20:24 Aspirin (Aspirin 81 Mg Ectab) 81 mg PO QAM ON LICENSE OF [facility] Stop: 01/13/21 08:59 Last Admin: 12/21/20 09:13 Dose: 81 mg Documented by: Dextrose (Dextrose 50% 50 Ml Syringe) 25 - 50 ml IV UD PRN; Protocol PRN Reason: Hypoglycemia Protocol Stop: 01/12/21 20:24 Diclofenac Sodium (Diclofenac Sod 1% Gel 100 Gm Tube) 4 gm EXT BID ON LICENSE OF [facility] Stop: 01/14/21 11:14 Last Admin: 12/21/20 09:17 Dose: Not Given Documented by: Ergocalciferol (Ergocalciferol 50,000 Units 1250 Mcg Cap) 50,000 units PO Tu@0900 ON LICENSE OF [facility] Stop: 01/17/21 08:59 Last Admin: 12/18/20 10:00 Dose: 50,000 units Documented by: Fluticasone Propionate (Fluticasone Propionate Na Spr 16 Gm Btl) 2 sprays NA BID ON LICENSE OF [facility] Stop: 01/12/21 20:59 Last Admin: 12/21/20 09:11 Dose: 2 sprays Documented by: Fluticasone/Vilanterol (Fluticasone/Vilanterol 200/25mcg 14 Puffs/Inhaler) 1 puffs INH DAILY ON LICENSE OF [facility] Stop: 01/13/21 08:59 Last Admin: 12/21/20 09:11 Dose: 1 puffs Documented by: Gabapentin (Gabapentin 300 Mg Cap) 300 mg PO TID MATT Stop: 01/12/21 20:59 Last Admin: 12/21/20 13:50 Dose: 300 mg Documented by: Glucagon (Glucagon For Inj 1 Mg Vial) 1 mg SQ UD PRN; Protocol PRN Reason: Hypoglycemia Protocol Stop: 01/12/21 20:24 Glucose (Glucose 10 Tabs/Tube) 4 - 8 tabs PO UD PRN; Protocol PRN Reason: Hypoglycemia Protocol Stop: 01/12/21 20:24 Glucose (Glucose 40% Gel 15 Gm Tube) 15 - 30 gm PO UD PRN; Protocol PRN Reason: Hypoglycemia Protocol Stop: 01/12/21 20:24 Heparin Sodium (Beef Lung) (Heparin 10 Unit/Ml 5 Ml Flush) 5 ml FLUSH PRN PRN PRN Reason: Flush Stop: 01/13/21 23:54 Last Admin: 12/20/20 17:06 Dose: 5 ml Documented by: Hydromorphone HCl (Hydromorphone Inj 0.5 Mg/0.5 Ml Syr) 0.5 mg IV Q4H PRN PRN Reason: Pain Stop: 12/28/20 04:33 Last Admin: 12/21/20 13:50 Dose: 0.5 mg Documented by: Hyoscyamine (Hyoscyamine Sulfate 0.125 Mg Tab) 0.125 mg PO TID MATT Stop: 01/12/21 20:59 Last Admin: 12/21/20 13:50 Dose: 0.125 mg Documented by: Furosemide 20 mg/ Syringe 2 mls @ 4 mls/min IV BID17 ON LICENSE OF [facility] Stop: 01/13/21 08:59 Last Admin: 12/21/20 09:11 Dose: 4 mls/min Documented by: Daptomycin 650 mg/ Syringe 13 mls @ 6.5 mls/min IV Q24H ON LICENSE OF [facility]; Protocol Stop: 01/25/21 16:59 Last Admin: 12/20/20 17:06 Dose: 6.5 mls/min Documented by: Piperacillin Sod/Tazobactam (Sod 4.5 gm/ Dextrose) 120 mls @ 30 mls/hr IV Q8H MATT; Protocol Stop: 01/24/21 21:59 Last Admin: 12/21/20 13:54 Dose: 30 mls/hr Documented by: Lorazepam (Ativan) 0.5 mg in 1 mls @ 1 mls/min IV Q4H PRN PRN Reason: Agitation Stop: 01/17/21 10:55 Last Admin: 12/19/20 20:03 Dose: 1 mls/min Documented by: Insulin Aspart (Insulin Aspart 100 Units/Ml 3 Ml Pen) 0 units SC [facility] Stop: 12/21/20 23:59 Last Admin: 12/21/20 12:03 Dose: 38 units Documented by: Insulin Aspart (Novolog Insulin Pump) 1 ea N/A ACHS ON LICENSE OF [facility]; Protocol Stop: 01/21/21 07:29 Insulin Aspart (Insulin Aspart 100 Units/Ml Vial) 0 units SC PRN PRN PRN Reason: to replace if needed Stop: 01/21/21 07:29 Lactic Acid (Ammonium Lactate 12% Lotion 225 Gm Btl) 1 gm EXT BID ON LICENSE OF [facility] Stop: 01/12/21 20:59 Last Admin: 12/21/20 09:18 Dose: 1 gm Documented by: Levothyroxine Sodium (Levothyroxine Sodium 88 Mcg Tablet) 88 mcg PO DAILYBB ON LICENSE OF [facility] Stop: 01/13/21 06:29 Last Admin: 12/21/20 05:49 Dose: 88 mcg Documented by: Magnesium Hydroxide (Magnesium Hydroxide Susp 30 Ml Udc) 30 ml PO Q12H PRN PRN Reason: Constipation Stop: 01/12/21 20:24 Magnesium Oxide (Magnesium Oxide 400 Mg Tab) 400 mg PO QAM ON LICENSE OF [facility] Stop: 01/13/21 08:59 Last Admin: 12/21/20 09:13 Dose: 400 mg Documented by: Metoprolol Succinate (Metoprolol Succ 50mg Ext Rel Tab) 50 mg PO BID ON LICENSE OF [facility] Stop: 01/12/21 20:59 Last Admin: 12/21/20 09:13 Dose: 50 mg Documented by: Metoprolol Succinate (Metoprolol Succ 25mg Ext Rel Tab) 25 mg PO BID ON LICENSE OF [facility] Stop: 01/12/21 20:59 Last Admin: 12/21/20 09:14 Dose: 25 mg Documented by: Miscellaneous (Carbohydrates For Hypoglycemia ) 15 - 30 gm PO UD PRN PRN Reason: Hypoglycemia Protocol Stop: 01/12/21 20:24 Miscellaneous Information (Pharmacy Glycemic Mgmt Consult) 1 ea N/A UD PRN; Protocol PRN Reason: Consult Stop: 01/12/21 20:24 Miscellaneous Information (Daptomycin Consult Active) 1 ea N/A UD PRN PRN Reason: Consult Stop: 01/12/21 20:55 Miscellaneous Information (Piperacill/Tazobac Consult Active) 0 ea N/A UD PRN PRN Reason: Consult Stop: 01/12/21 20:24 Ondansetron HCl (Ondansetron Inj 2 Mg/Ml 2 Ml Vial) 4 mg IV Q6H PRN PRN Reason: Nausea Stop: 01/12/21 20:24 Pantoprazole Sodium (Pantoprazole 40 Mg Tab) 40 mg PO QAM ON LICENSE OF [facility] Stop: 01/13/21 08:59 Last Admin: 12/21/20 09:13 Dose: 40 mg Documented by: Polyethylene Glycol (Polyethylene (Miralax) 17 Gm Pack) 17 gm PO DAILY PRN PRN Reason: Constipation Stop: 01/12/21 20:24 Last Admin: 12/21/20 09:10 Dose: 17 gm Documented by: Potassium Chloride (Potassium Chloride Crtab 20 Meq Tabcr) 20 meq PO DAILY ON LICENSE OF [facility] Stop: 01/13/21 08:59 Last Admin: 12/21/20 09:16 Dose: 20 meq Documented by: Spironolactone (Spironolactone 25 Mg Tab) 25 mg PO DAILY ON LICENSE OF [facility] Stop: 01/13/21 08:59 Last Admin: 12/21/20 09:13 Dose: 25 mg Documented by:
[2020-12-21 15:22] VITALS: BP 146/74; TEMP 97.7; O2SAT 96
[2020-12-21] MEDS: DAPTOmycin 650 MG in SYRINGE 0 ML IV SCH (17:36)
[2020-12-21 17:45] VITALS: PULSE 68
[2020-12-22] MEDS ORDERED: INSULIN ASPART 100 UNITS/ML VIAL SC PRN (07:30)
[2020-12-22] MEDS ORDERED: NovoLOG INSULIN PUMP SCH (07:30)
--- NOTE | 2020-12-29 08:41 | Discharge Summary ---
Date of Service December 29, 2020 Admission HPI Per Admitting Provider Chief Complaint: Referred by wound care 2/2 to worsening L foot wound and sluggish PICC line. Primary Care Provider: Sherry Maya DO This is a 55-year-old medically complex male who has significant past medical history of chronic systolic and diastolic CHF, ischemic cardiomyopathy, CAD, history of SVT, AICD placement October 2019, PAF anticoagulated on warfarin, history of DVT on warfarin, HTN, HLD, CKD stage III baseline 1.5-1.7, NINA on BiPAP, asthma, insulin-dependent T2DM, diabetic peripheral neuropathy, hypothyroidism, chronic left nonhealing diabetic foot wound who presents to ED secondary to referral from wound care 2/2 to worsening of L foot wound and sluggish PICC Line. Of significance patient recently hospitalized at [facility] 11/2111/29/2020 secondary to worsening left foot wound. Per reports from hospitalization he had previously been following wound care and placed on IV Rocephin secondary to a 10/31 culture that grew a Proteus species. During hospitalization he underwent a soft tissue debridement of the left foot wound with bone biopsy and biopsy of calcaneus. Cultures grew Corynebacterium and Enterococcus. A wound VAC and PICC line was placed. He was discharged to home on IV Unasyn every 6 hours. SNF was recommended but patient refused. He was seen and evaluated today by home health and wound care. His wound VAC had fallen off today and in-home care felt wound worsening and referred him to hospital. His PICC was also felt to be sluggish. Patient complains of increased pain to left foot today. He lives alone. BSGs have been uncontrolled with blood sugars in the 300s. He denies f/c/s, dizziness, lightheaded, chest pain, sob, cough, n/v/d, abdominal pain, change in bowel or urinary habits. Feels his b/l legs are more swollen then usual. Does not monitor weight, unsure if change. In ED patient did have elevated temperature at 37.7 but otherwise hemodynamically stable. Lab work notable for elevated WBC 12.91, H&H 10.8 and 32.9, platelet 430, ESR 10 2, CRP 13. His INR was therapeutic at 2.4. He was started on IV daptomycin and Zosyn. Blood and wound cultures were obtained. Admission Exam Per Admitting Provider Physical Exam: Constitutional: WD/WN, vitals as above, NAD, sitting up in bed, pleasant, conversing easily Head: Normocephalic, Atraumatic Eyes: PERRL, conjunctivae normal, anicteric sclerae ENMT: external ear and nose normal, oropharynx normal Neck: trachea midline, no thyromegaly normal visual inspection Respiratory: normal respiratory effort, lungs clear to auscultation, no wheeze, rales, rhonchi. Normal insp/exp effort, no accessory muscle use Cardiovascular: RRR, no murmur, significant b/l lower ext lymphedema with chronic venous stasis changes, Vessels: no JVD or carotid bruit , RUE PICC noted Chest: normal inspection of chest Abdomen: normal bowel sounds, soft, nontender, no hepatosplenomegaly Musculoskeletal: no cyanosis or clubbing, extremities motor strength 5/5, Skin: no rashes, warm and dry normal turgor Neurologic: PERRL, EOMI, accommodation nl, no face palsy, no dysarthria CN's II-XI intact bilaterally and moves all extremities Wounds: Left pre tibial area small chronic wound approximately 12. Large wound draining serous fluid of L foot extending to base of 5th metatarsal. + Wound to L calcaneal region with surrounding redness. + wound to R lateral foot. +Found smelling Psychiatric: A+Ox3, euthymic affect Lymphatic: no cervical or axillary lymphadenopathy : deferred Principal Diagnosis Acute osteomyelitis of left foot, diabetic infection of the left foot, CAD, ischemic cardiomyopathy status post AICD in situ, controlled diastolic heart failure, hypertension Discharge Exam Constitutional well developed, well nourished and + obese; not ill appearing Eyes PERRL, conjunctivae normal, anicteric sclerae ENMT external ear and nose normal, oropharynx normal Neck trachea midline, no thyromegaly Respiratory no respiratory distress and no cough Auscultation: lungs clear to auscultation bilaterally Cardiovascular Rate/Rhythm: regular rate and regular rhythm; not tachycardic Heart Sounds: normal S1 and normal S2; no murmur Extremities: + edema (Bilateral leg edema with chronic skin changes) Gastrointestinal (Abdomen) normal bowel sounds, soft, nontender, no hepatosplenomegaly Inspection/Auscultation: + abdomen distended and normal bowel sounds Percussion/Palpation: abdomen soft; abdomen nontender Musculoskeletal Ankle: no deformity Neurologic moves all extremities and + focal motor deficit Psychiatric A+Ox3, euthymic affect Lymphatic no cervical or axillary lymphadenopathy Discharge Data Allergies Allergy/AdvReac Type Severity Reaction Status Date / Time benzonatate AdvReac Intermediate choking, Verified 12/28/20 21:19 gagging Consultations 12/13/20 17:35 ED Decision to Admit Stat 12/13/20 17:50 Consult Orthopedic Surgery Routine 12/13/20 18:08 Consult Infectious Diseases Routine 12/17/20 08:00 Consult Psychiatry Routine 12/18/20 09:02 Consult Vascular Surgery Routine Ordered Studies 12/14/20 12:02 MR foot LT wo/w con Routine 12/17/20 16:00 US arterial duplex LE LT Routine Hospital Course (1) Diabetic infection of left foot: (2) Acute osteomyelitis of left foot: This is a 55-year-old medically complex male who has significant past medical history of chronic systolic and diastolic CHF, ischemic cardiomyopathy, CAD, history of SVT, AICD placement October 2019, PAF anticoagulated on warfarin, history of DVT on warfarin, HTN, HLD, CKD stage III baseline 1.5-1.7, NINA on BiPAP, asthma, insulin-dependent T2DM, diabetic peripheral neuropathy, hypothyroidism, chronic left nonhealing diabetic foot wound who presents to ED secondary to referral from wound care 2/2 to worsening of L foot wound and sluggish PICC Line. Status post soft tissue debridement of left foot wound and bone biopsy left metatarsal confirming osteomyelitis on 11/23 at [facility]. Per records + Corynebacterium and Enterococcus. Placed on IV Unasyn every 6 hours, unknown compliance and for the past 3 days PICC line has been sluggish. Presents today with worsening of wound and pain. He does not meet criteria for SIRS/sepsis, but does have leukocytosis 12.91, ESR 1 or 2, CRP 13. pt with multiple wounds of L foot and lateral wound to R foot Blood cultures -negative Wound cultures-left foot ulcer is growing Corynebacterium species and Camila albicans/dubliniensis with yeast and right foot low counts of mixed isabel Continue IV Daptomycin and Zosyn -started in ED MRI of the left foot did show osteomyelitis Appreciate orthopedic input and recommendation-recommended to have him amputation of the left foot Appreciate ID input and recommendation to continue IV antibiotic for long time and also suggested to have surgery as well Discussed with the patient and he wanted to wait till Dr. Bates comes on Thursday and give him the definitive answer Fluconazole was added since yesterday to cover fungal species and will discuss with the ID whether to continue the antifungal or not Clinically remains stable and awaiting Dr. Callejas input DARRYL Has had lower extremity Dopplerdid not show any significant arterial obstruction There were three advised to have amputation either BKA or AKA on the left side He will have vascular surgery evaluation determined the level of amputation is best for him He remains stable-wants to participate in the care management and is awaiting to hear from Dr. Bates about definitive management Discussed with Dr. Bates who will see him shortly Discussed with Dr. Bates who is arranging for definitive AKA on Thursday by Dr. Gonzalez. This was discussed with the patient in detail and was strongly advised not to leave the hospital then he will lose the opportunity to have the amputation on Thursday. He clearly stated that he understands the consequences of not having it done on Thursday if he leaves the hospital. He clearly understood that his condition may get worse and he may have further complication at home. After long discussion he decided to go home and he was sent home this afternoon. Ongoing back pain Complicated by posture in the hospital bed Will apply Voltaren gel locally twice daily Back pain is better His oral pain medications have been restarted Pain has been improving Bilateral feet pain More on the left than the right Has been on Dilaudid intravenously 0.5 mg every 4 hourly as needed With a change in the doses of Dilaudid for pain is better His pain is off-and-on and has been asking for more pain medications Severe anxiety Appreciate psychiatrist input and recommendation Has been getting Ativan as needed Does not have any more anxiety but gets agitated at times (3) Diabetic foot ulcer: pt with multiple wounds of L foot, L pretibial area and R lateral foot wound care/nurse consulted ortho consulted Await MRI result-as above Please see the picture of the wound to find out how is it Discussed with the ID specialist [place] We will continue Diflucan and preference will be given to intravenous vancomycin Discussed with ID in [place] and will continue with daptomycin for a total of 6 weeks Prescription has been given to home health nurse (4) T2DM (type 2 diabetes mellitus): a1c 7.3 10/18/20 insulin pump consult glycemic pharmacy for assistance (5) CAD (coronary artery disease): Denies any acute cardiac symptoms of chest pain and palpitation No acute cardiac symptoms (6) Ischemic cardiomyopathy: No acute symptoms Has AICD in situ Does not have any cardiac symptoms (7) CHF (congestive heart failure): Patient with mixed diastolic and systolic CHF Last echocardiogram 05/26/2019 showed EF 30 to 35% with large apical, septal, anterior septal wall motion abnormality and akinesis He did have echo 07/2020; however very limited but documented EF Grossly normal daily weights, strict I and O saturating okay on room air pt c/o increased lower ext edema place on lasix IV 20mg BID continue metoprolol, aldactone, KCL hold statin / to dapto use-no shortness of breath and chest examination remained unremarkable No symptoms of fluid overload-we will continue his outpatient diuretics (8) Hypertension: Bp stable continue home meds (9) Atrial fibrillation: rate and rhythm controlled on metoprolol hold warfarin in setting of possible procedure (10) CKD (chronic kidney disease) stage 3, GFR 30-59 ml/min: Baseline creatinine 1.5-1.7 BUN/creatinine stable at 22 and 1.25 Monitor daily (11) NINA on CPAP: Bipap at HS (12) Morbid obesity: BMI 46.4 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[employer] 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 consult ordered DVT ppx: INR therapeutic, warfarin on hold, place on SQ heparin when INR < 2 Dispo: PCU PCP: Francesco FULL CODE He wanted to go home no matter what is a schedule or not He was advised to nonweight-bear on left foot and continue with IV antibiotic Very strongly advised to have a follow-up appointment with [facility] orthopedic surgeon of his choice within the next week as he wanted to have a second opinion He did not want to be transferred to [facility] today Total Time Total Time Spent Total Time Spent (In Minutes): 45 minutes Discharge Plan Discharge Items Patient Disposition: Home - Home Health Services Reason For Visit: L FOOT OSTEOMYELITIS Discharge Diagnosis: Acute osteomyelitis of left foot, diabetic infection of the left foot, CAD, ischemic cardiomyopathy status post AICD in situ, controlled diastolic heart failure, hypertension Condition on Discharge: Fair Activity: As commented below Activity Comment: Nonweightbearing on left foot Non-emergency contact: Primary Care Provider Call non-emergency contact if: you have any medication questions and your symptoms worsen Follow-up/Referrals: Sherry Maya DO [Primary Care Provider] - (Please make an appointment with your primary care physician within 1 week.) Diet: Carb Consistent or DM2 and Heart Healthy Addtl Attending Provider Instructions: Please take extra precautions to avoid falls Nonweightbearing on left foot as recommended by Ortho Continue IV antibiotic as advised-the prescription is given to the home health nurse Do not take any statin as long as you are on daptomycin Get an Ortho appointment as soon as possible for proposed surgery on your left leg Pending Studies at Discharge: No Stand-Alone Forms: My [facility], Smoking Cessation Medications and DC Order Prescriptions: New diclofenac sodium [Voltaren Arthritis Pain] 1 % Gel 4 g EXT BID 10 Days Qty: 50 RF: 0 Continued fluticasone propionate [Flonase Allergy Relief] 50 mcg/actuation spray,suspension 2 sprays INTNAS BID RF: 0 magnesium oxide 400 mg capsule 400 mg PO QAM RF: 0 mometasone-formoterol [Dulera] 200-5 mcg/actuation HFA aerosol inhaler 2 puffs INH BID RF: 0 nitroglycerin 0.4 mg tablet, sublingual 0.4 mg SL Q5M PRN (Reason: Chest Pain) RF: 0 omeprazole 20 mg capsule,delayed release(DR/EC) 20 mg PO QAM RF: 0 tramadol 50 mg tablet 50 mg PO Q6H PRN (Reason: pain) RF: 0 (DME) blood-glucose meter [OneTouch Verio Flex meter] Misc See Rx Instructions .ROUTE .MEDSUPPLY Qty: 1 RF: 0 insulin aspart U-100 [Novolog U-100 Insulin aspart] 100 unit/mL solution See Rx Instructions continuous subcutaneous infusion DAILY Qty: 12 RF: 5 hyoscyamine sulfate [Levsin] 0.125 mg Tablet 0.125 mg PO TID RF: 0 gabapentin 300 mg Capsule 300 mg PO TID RF: 0 ergocalciferol (vitamin D2) 2,500 unit Capsule 50,000 unit PO WK RF: 0 albuterol sulfate [Ventolin HFA] 90 mcg/actuation Hfa Aerosol Inhaler 2 puff INHALATION QID PRN (Reason: SHORT OF BREATH) RF: 0 clobetasol 0.05 % cream 1 applic TOPICAL BID RF: 0 aspirin 81 mg Tablet,Delayed Release (Dr/Ec) 81 mg PO QAM RF: 0 warfarin 1 mg tablet 3 mg PO SUTH RF: 0 Lac-Hydrin Five 5 % Lotion 1 applic TOPICAL DAILY PRN (Reason: Dry Skin) RF: 0 potassium chloride 20 mEq tablet extended release 20 meq PO DAILY Qty: 30 RF: 0 metoprolol succinate 50 mg tablet extended release 24 hr 50 mg PO BID RF: 0 hydrocodone-acetaminophen 5-325 mg Tablet 1 tab PO Q6H PRN (Reason: Pain) RF: 0 metoprolol succinate 25 mg tablet extended release 24 hr 25 mg PO BID RF: 0 spironolactone 25 mg Tablet 25 mg PO DAILY RF: 0 levothyroxine 88 mcg tablet 88 mcg PO DAILY RF: 0 torsemide 20 mg tablet 20 mg PO BID RF: 0 warfarin 1 mg Tablet 2 mg PO MOTUWEFRSA RF: 0 atorvastatin 80 mg tablet 80 mg PO HS Qty: 0 RF: 0 Discharge Orders: Discharge Order (Routine); Ordered 12/21/20 Ordered By: Cl Kang/Other Patient Handouts: A1C, [facility] for Diabetes Admission Data Admit Date/Time: 12/13/20 17:50 Attending Provider: Cl Cruz Admit Provider: Tommy Allen Primary Care Provider: Sherry Maya Other Providers: Kirk Torres ; Adolph Canales ; Alberto Payne I. ; Husam Perkins II ; Sherry Prakash ; Declan Reynoso ; Ryan Rosa ; Tommy Allen ; Geno Blancas ; Dr Cale ; Christianne Holland ; Don Leblanc ; Nate Gonzalez Other Interventions: Discharge Summary Assessment (RN) Last Done: 12/21/20 17:44
== END 2020-12-21 18:16 | disposition home health service (06) | DRG 638 ==
LOC: ED 13:30 → SUATTDRO 17:50 → 2S 17:50
DX: F41.9 Anxiety disorder, unspecified; Z68.41 Body mass index [BMI] 40.0-44.9, adult; Z83.3 Family history of diabetes mellitus; E11.621 Type 2 diabetes mellitus with foot ulcer; E11.22 Type 2 diabetes mellitus with diabetic chronic kidney disease; I25.10 Atherosclerotic heart disease of native coronary artery without angina pectoris; E11.610 Type 2 diabetes mellitus with diabetic neuropathic arthropathy; I50.42 Chronic combined systolic (congestive) and diastolic (congestive) heart failure; J45.909 Unspecified asthma, uncomplicated; M86.172 Other acute osteomyelitis, left ankle and foot; K21.9 Gastro-esophageal reflux disease without esophagitis; E66.01 Morbid (severe) obesity due to excess calories; E11.51 Type 2 diabetes mellitus with diabetic peripheral angiopathy without gangrene; I48.91 Unspecified atrial fibrillation; I13.0 Hypertensive heart and chronic kidney disease with heart failure and stage 1 through stage 4 chronic kidney disease, or unspecified chronic kidney disease; I25.5 Ischemic cardiomyopathy; G47.33 Obstructive sleep apnea (adult) (pediatric); N18.30 Chronic kidney disease, stage 3 unspecified; E11.65 Type 2 diabetes mellitus with hyperglycemia; Z96.41 Presence of insulin pump (external) (internal); Z79.01 Long term (current) use of anticoagulants; Z79.82 Long term (current) use of aspirin; Z85.810 Personal history of malignant neoplasm of tongue; Z79.84 Long term (current) use of oral hypoglycemic drugs; E11.69 Type 2 diabetes mellitus with other specified complication; Z86.16 Personal history of COVID-19; L97.526 Non-pressure chronic ulcer of other part of left foot with bone involvement without evidence of necrosis

== ENCOUNTER 2020-12-28 18:45 | Inpatient (IN) ==
--- NOTE | 2020-12-28 20:55 | Emergency Department Note ---
Impression & Plan Acute osteomyelitis of left foot, Acute pain of left foot, Cellulitis of left leg ED Provider Note NAME: STANISLAW ALCANTAR JR AGE: 55 SEX: M : 1965 ARRIVES VIA: Walk-In INFORMANT: [Patient] ED PROVIDER(S): [Lukas Boo MD] CHIEF COMPLAINT: Left leg pain. HISTORY OF PRESENT ILLNESS: The patient is a 55-year-old male who is here tonight for hospitalization. He states that he has been in contact with his doctors office and he is to have a left [id number] amputation early next week by Dr. Gonzalez of vascular surgery. The patient has left foot osteomyelitis and left leg cellulitis. He is on IV daptomycin. He is receiving the daptomycin at home. The patient was in our hospital 2 weeks ago. He was scheduled to have a below the knee amputation this past Thursday but, he left the hospital knowing he would not have the procedure. Now since he has talked with his doctor, now that he has had some time to think, he is willing to come in for the procedure. He states that he thinks now that they have decided to do an sogac-crb-[id number] amputation rather than a below the knee amputation. The patient still has moderate left leg pain, there is still left foot drainage. This has been an ongoing problem. He believes the leg looks very similar in appearance to last week. He has not had fever, vomiting, chest pain or shortness of breath. REVIEW OF SYSTEMS: See HPI for pertinent positives and negatives. A total of ten systems were reviewed and were otherwise negative. PMHx/PSHx: See Below SOCIAL HISTORY: See Below. PHYSICAL EXAM: GENERAL: Patient is in no acute distress. HEENT: No acute trauma, normocephalic atraumatic, mucous membranes moist, no nasal congestion, no scleral icterus. NECK: No stridor, no adenopathy, no meningismus, trachea is midline. LUNGS: Clear to auscultation bilaterally, no wheeze, no rhonchi, breath sounds equal. HEART: Irregular rhythm, normal rate, no murmurs. Heart tones are distant. ABDOMEN: Soft, nontender, bowel sounds positive, no hernias, no peritonitis. EXTREMITIES: No cyanosis. Bilateral pedal edema, far worse on the left. There is a large open draining wound to the lateral left foot. There is some surrounding erythema. The erythema has extended up the leg to the area just below the knee. There is some right lower extremity edema and some chronic skin change. NEUROLOGIC: Oriented x 3, no acute motor or sensory deficits, no focal weakness. SKIN: No jaundice, no diaphoresis. DIFFERENTIAL DIAGNOSIS: Cellulitis, osteomyelitis, sepsis, bacteremia, neurovascular compromise, failed outpatient treatment, medical noncompliance, electrolyte imbalance, anemia, among others. EMERGENCY DEPARTMENT COURSE/PROCEDURES: ECG: Indication was dysrhythmia. The ECG shows a poor baseline but I do believe a sinus rhythm with some PACs. The rate is 71. There is no ST elevation. There is an old anteroseptal infarct. No PVCs. The QTc is 397. Compared to an ECG from 13 December 2020, PACs are now present. Continuous Cardiac Monitoring: An order was placed for continuous cardiac monitoring. The monitor shows a rate of 74 with normal sinus rhythm. MEDICAL DECISION MAKING: There is no leukocytosis. The patient does have an anemia. The anemia is baseline though looking at previous testing. There was a normal platelet count. No worrisome coagulopathy. No significant electrolyte abnormality or kidney failure. Lactic acid level was not elevated making severe sepsis less likely. No worrisome liver enzyme elevation. Covid testing is pending. ECG showed a sinus rhythm with PACs. On exam, the patient's left foot was draining. He had a cellulitis from the foot to the area of the leg just below the knee. The patient is here at the advice of his doctors office. He is scheduled for an avxiv-czu-[id number] amputation early next week. He requires hospitalization in preparation for the surgery. I did speak with the patient, I talked with case management. The on-call hospitalist has been consulted. During the patient's ER stay, he required a dose of IV morphine for pain control. 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 Bacteremia due to group B Streptococcus CAD (coronary artery disease) Cardiac defibrillator in situ 2007 with replacement 03/2020. follows [address] Dr[address] Maya. CHF (congestive heart failure) CKD (chronic kidney disease) stage 3, GFR 30-59 ml/min Deformity of foot Depression Diabetes type 2, uncontrolled Diabetic peripheral neuropathy associated with type 2 diabetes mellitus Dyslipidemia GERD (gastroesophageal reflux disease) H/O osteomyelitis History of diabetic ulcer of foot Hx of myocardial infarction found on testing Hx of osteomyelitis Hx of sepsis 06/2019 Hypertension Hypokalemia Hypothyroidism Ischemic cardiomyopathy Adams fracture Base of left fifth metatarsal, nonhealing x years Lymphedema Morbid obesity Peripheral arterial disease Rectal bleeding Sleep apnea BIPAP Sustained VT (ventricular tachycardia) T2DM (type 2 diabetes mellitus) Venous stasis ulcer of right lower leg with edema of right lower leg Vitamin D deficiency Surgical History H/O cardiac radiofrequency ablation OCTOBER 2019 ([facility]) AT [facility] H/O foot surgery LEFT FOOT ULCER DEBRIDEMENT H/O shoulder surgery left History of cardiac cath V. tach -- no stent. 06/2019. unsure where it was done History of colonoscopy History of esophagogastroduodenoscopy (EGD) History of sinus surgery Hx of amputation of lesser toe Hx of tonsillectomy Family History Sister Family history of diabetes mellitus 2 Grandmother (Maternal) Family history of diabetes mellitus Grandfather (Maternal) Family history of diabetes mellitus Father Cancer Mother Cancer Other No family history of adverse response to anesthesia Social History Smoking Status: Never smoker Second Hand Exposure: No; Hx Alcohol Use: No Hx Substance Use: No Preferred Language: Amharic Communication Ability: Effective Innovation Manager Required: No Beliefs That Will Affect Care: None marital status: Current Living Situation: Alone current occupational status: disabled How many Children do You have: 3 Feels Safe at Home: Yes Assistive Devices: Cane and Walker Allergies Allergies Allergy/AdvReac Type Severity Reaction Status Date / Time benzonatate AdvReac Intermediate choking, Verified 12/28/20 21:19 gagging Home Meds Home Medications Medication Instructions Recorded Confirmed fluticasone propionate 50 2 sprays INTNAS BID gm 12/21/17 12/28/20 mcg/actuation nasal spray,suspension (Flonase Allergy Relief) magnesium oxide 400 mg PO QAM cap 12/21/17 12/28/20 mometasone-formoterol HFA 200 2 puffs INH BID 12/21/17 12/28/20 mcg-5 mcg/actuation aerosol inhaler (Dulera) nitroglycerin 0.4 mg sublingual 0.4 mg SL Q5M PRN 12/21/17 12/28/20 tablet omeprazole 20 mg capsule,delayed 20 mg PO QAM 12/21/17 12/28/20 release tramadol 50 mg tablet 50 mg PO Q6H PRN 12/21/17 12/28/20 ergocalciferol (vitamin D2) 62.5 50,000 unit PO WK 04/12/19 12/28/20 mcg (2,500 unit) capsule gabapentin 300 mg capsule 300 mg PO TID 04/12/19 12/28/20 hyoscyamine sulfate 0.125 mg 0.125 mg PO TID 04/12/19 12/28/20 tablet (Levsin) clobetasol 0.05 % topical cream 1 applic TOPICAL BID 01/18/20 12/28/20 albuterol sulfate 90 mcg/actuation 2 puff INHALATION QID PRN 05/30/20 12/28/20 aerosol inhaler (Ventolin HFA) aspirin 81 mg tablet,delayed 81 mg PO QAM 06/12/20 12/28/20 release warfarin 1 mg tablet 3 mg PO SUTH 07/12/20 12/28/20 ammonium lactate 5 % lotion 1 applic TOPICAL DAILY PRN 08/15/20 12/28/20 (Lac-Hydrin Five) hydrocodone 5 mg-acetaminophen 325 1 tab PO Q6H PRN 12/13/20 12/28/20 mg tablet levothyroxine 88 mcg tablet 88 mcg PO DAILY 12/13/20 12/28/20 metoprolol succinate 25 mg 25 mg PO BID 12/13/20 12/28/20 tablet,extended release 24 hr metoprolol succinate 50 mg 50 mg PO BID 12/13/20 12/28/20 tablet,extended release 24 hr spironolactone 25 mg tablet 25 mg PO DAILY 12/13/20 12/28/20 torsemide 20 mg tablet 20 mg PO BID 12/13/20 12/28/20 warfarin 1 mg tablet 2 mg PO MOTUWEFRSA 12/13/20 12/28/20 Previous Rx's Medication Instructions Recorded blood-glucose meter (Bomgaruch #1 ea 02/21/20 Verio Flex meter) potassium chloride 20 mEq 20 meq PO DAILY #30 tab 08/23/20 tablet,extended release insulin aspart U-100 100 unit/mL See Rx Instructions CONTINUOUS 11/01/20 subcutaneous solution (Novolog SUBCUTANEOUS INFUSION DAILY #12 ml U-100 Insulin aspart) atorvastatin 80 mg tablet 80 mg PO HS #0 tab 12/21/20 diclofenac sodium 1 % topical gel 4 g EXT BID 10 Days #50 g 12/21/20 (Voltaren Arthritis Pain) Results & Data (ED) Vital Signs Vital Signs - 24 hr 12/28/20 18:47 12/28/20 22:10 Temperature 36.5 C Temperature Source Temporal Artery Scan Pulse Rate 74 Respiratory Rate 18 Respiratory Effort / Characteristics Non-Labored Respiratory Depth Normal Blood Pressure 124/69 Blood Pressure Mean 87 Pulse Oximetry 95 99 Oxygen Delivery Method Room Air Room Air Sepsis Recent Fever Within 48 Hours No Sepsis New/Unexplained Change in Mental Status No Sepsis Action Taken by Nursing No Action Required Home Medications Current Medication List: was personally reviewed by me Laboratory Data Attestation: I reviewed the patient's lab results. Result diagrams: 12/28/20 21:15 12/28/20 21:15 Lab Results 12/28/20 12/28/20 12/28/20 Range/Units 21:15 21:15 21:15 WBC (4.8-10.8) K/uL RBC (4.7-6.1) M/uL Hgb (14.0-18.0) g/dL Hct (42-52) % MCV (80-100) fL MCH (25-34) pg MCHC (32-36) g/dL RDW Std Deviation (36.4-46.3) fL RDW Coeff of Мария (11.5-14.5) % Plt Count (130-400) K/uL MPV (7.4-10.4) fL Immature Gran % (Auto) % Neut % (Auto) % Lymph % (Auto) % [place] % (Auto) % Eos % (Auto) % Baso % (Auto) % Neut # (Auto) (1.4-6.5) K/uL Lymph # (Auto) (1.2-3.4) K/uL [place] # (Auto) (0.11-0.59) K/uL Eos # (Auto) (0-0.5) K/uL Baso # (Auto) (0-0.2) K/uL Immature Gran # (Auto) (0.00-0.02) K/uL PT 12.0 (9.0-12.0) Seconds INR 1.2 H (0.9-1.1) APTT 27.2 (21.0-31.0) Seconds PTT Ratio 1.0 Sodium 136 (136-145) mmol/L Potassium 3.7 (3.5-5.1) mmol/L Chloride 104 (98-107) mmol/L Carbon Dioxide 27 (21-32) mmol/L Anion Gap 6.0 (3-11) BUN 24 H (7-18) mg/dl Creatinine 1.30 (0.6-1.4) mg/dl Est Cr Clr Drug Dosing Not Reportable Est GFR ( Amer) 70.2 ml/min Est GFR (Non-Af Amer) 60.6 ml/min BUN/Creatinine Ratio 18.8 (10-20) Glucose 193 H (70-99) mg/dl Lactate 1.4 (0.4-2.0) mmol/L Calcium 9.0 (8.5-10.1) mg/dl Magnesium 1.9 (1.8-2.4) mg/dl Total Bilirubin 0.5 (0.2-1) mg/dl AST 17 (15-37) U/L ALT 16 (12-78) U/L Alkaline Phosphatase 135 H (45-117) U/L Total Protein 8.3 H (6.4-8.2) gm/dl Albumin 2.4 L (3.4-5.0) gm/dl Globulin 5.9 H (2.5-4.0) gm/dl Albumin/Globulin Ratio 0.4 L (0.9-2) COVID-19 Eval Order 12/28/20 12/28/20 Range/Units 21:15 22:05 WBC 10.66 (4.8-10.8) K/uL RBC 3.88 L (4.7-6.1) M/uL Hgb 10.4 L (14.0-18.0) g/dL Hct 32.9 L (42-52) % MCV 84.8 (80-100) fL MCH 26.8 (25-34) pg MCHC 31.6 L (32-36) g/dL RDW Std Deviation 51.9 H (36.4-46.3) fL RDW Coeff of Мария 16.9 H (11.5-14.5) % Plt Count 375 (130-400) K/uL MPV 9.2 (7.4-10.4) fL Immature Gran % (Auto) 0.7 % Neut % (Auto) 74.6 % Lymph % (Auto) 12.1 % [place] % (Auto) 10.4 % Eos % (Auto) 1.6 % Baso % (Auto) 0.6 % Neut # (Auto) 7.96 H (1.4-6.5) K/uL Lymph # (Auto) 1.29 (1.2-3.4) K/uL [place] # (Auto) 1.11 H (0.11-0.59) K/uL Eos # (Auto) 0.17 (0-0.5) K/uL Baso # (Auto) 0.06 (0-0.2) K/uL Immature Gran # (Auto) 0.07 H (0.00-0.02) K/uL PT (9.0-12.0) Seconds INR (0.9-1.1) APTT (21.0-31.0) Seconds PTT Ratio Sodium (136-145) mmol/L Potassium (3.5-5.1) mmol/L Chloride (98-107) mmol/L Carbon Dioxide (21-32) mmol/L Anion Gap (3-11) BUN (7-18) mg/dl Creatinine (0.6-1.4) mg/dl Est Cr Clr Drug Dosing Est GFR ( Amer) ml/min Est GFR (Non-Af Amer) ml/min BUN/Creatinine Ratio (10-20) Glucose (70-99) mg/dl Lactate (0.4-2.0) mmol/L Calcium (8.5-10.1) mg/dl Magnesium (1.8-2.4) mg/dl Total Bilirubin (0.2-1) mg/dl AST (15-37) U/L ALT (12-78) U/L Alkaline Phosphatase (45-117) U/L Total Protein (6.4-8.2) gm/dl Albumin (3.4-5.0) gm/dl Globulin (2.5-4.0) gm/dl Albumin/Globulin Ratio (0.9-2) COVID-19 Eval Order Covid19 at [facility] Administered Medications Morphine Sulfate (Morphine Sulfate 10 Mg/Ml Carp/Vial) 6 mg IV Q30M PRN PRN Reason: Pain Stop: 01/11/21 22:11 Last Admin: 12/28/20 22:23 Dose: 6 mg Documented by: [id number] Discharge Plan Visit Data Chief Complaint: Foot Injury/Pain Stated Complaint: INFECTION IN L FOOT ED Provider: Lukas Boo Discharge Problem: Acute osteomyelitis of left foot, Acute pain of left foot, Cellulitis of left leg Patient Disposition: Admitted As Inpatient Condition: Fair Forms Stand Alone Forms: [facility] Prescriptions Prescriptions: No Action fluticasone propionate [Flonase Allergy Relief] 50 mcg/actuation spray,suspension 2 sprays INTNAS BID RF: 0 magnesium oxide 400 mg capsule 400 mg PO QAM RF: 0 mometasone-formoterol [Dulera] 200-5 mcg/actuation HFA aerosol inhaler 2 puffs INH BID RF: 0 nitroglycerin 0.4 mg tablet, sublingual 0.4 mg SL Q5M PRN (Reason: Chest Pain) RF: 0 omeprazole 20 mg capsule,delayed release(DR/EC) 20 mg PO QAM RF: 0 tramadol 50 mg tablet 50 mg PO Q6H PRN (Reason: pain) RF: 0 (DME) blood-glucose meter [OneTouch Verio Flex meter] Misc See Rx Instructions .ROUTE .MEDSUPPLY Qty: 1 RF: 0 insulin aspart U-100 [Novolog U-100 Insulin aspart] 100 unit/mL solution See Rx Instructions continuous subcutaneous infusion DAILY Qty: 12 RF: 5 hyoscyamine sulfate [Levsin] 0.125 mg Tablet 0.125 mg PO TID RF: 0 gabapentin 300 mg Capsule 300 mg PO TID RF: 0 ergocalciferol (vitamin D2) 2,500 unit Capsule 50,000 unit PO WK RF: 0 albuterol sulfate [Ventolin HFA] 90 mcg/actuation Hfa Aerosol Inhaler 2 puff INHALATION QID PRN (Reason: SHORT OF BREATH) RF: 0 clobetasol 0.05 % cream 1 applic TOPICAL BID RF: 0 aspirin 81 mg Tablet,Delayed Release (Dr/Ec) 81 mg PO QAM RF: 0 warfarin 1 mg tablet 3 mg PO SUTH RF: 0 Lac-Hydrin Five 5 % Lotion 1 applic TOPICAL DAILY PRN (Reason: Dry Skin) RF: 0 potassium chloride 20 mEq tablet extended release 20 meq PO DAILY Qty: 30 RF: 0 metoprolol succinate 50 mg tablet extended release 24 hr 50 mg PO BID RF: 0 hydrocodone-acetaminophen 5-325 mg Tablet 1 tab PO Q6H PRN (Reason: Pain) RF: 0 metoprolol succinate 25 mg tablet extended release 24 hr 25 mg PO BID RF: 0 spironolactone 25 mg Tablet 25 mg PO DAILY RF: 0 levothyroxine 88 mcg tablet 88 mcg PO DAILY RF: 0 torsemide 20 mg tablet 20 mg PO BID RF: 0 warfarin 1 mg Tablet 2 mg PO MOTUWEFRSA RF: 0 diclofenac sodium [Voltaren Arthritis Pain] 1 % Gel 4 g EXT BID 10 Days Qty: 50 RF: 0 atorvastatin 80 mg tablet 80 mg PO HS Qty: 0 RF: 0 Referrals Referrals: Sherry Maya DO [Primary Care Provider] -
[2020-12-28 21:28] LABS: Basophils # (auto) 0.06 K/uL (0-0.2); Basophils % (auto) 0.6 %; Eosinophils # (auto) 0.17 K/uL (0-0.5); Eosinophils % (auto) 1.6 %; Hematocrit (blood only) 32.9 % (42-52); Hemoglobin 10.4 g/dL (14.0-18.0); Immature Granulocytes # (auto) 0.07 K/uL (0.00-0.02); Immature Granulocytes % (auto) 0.7 %; Lymphocytes # (auto) 1.29 K/uL (1.2-3.4); Lymphocytes % (auto) 12.1 %; Mean Corpuscular Hemoglobin 26.8 pg (25-34); Mean Corpuscular Hgb Conc 31.6 g/dL (32-36); Mean Corpuscular Volume 84.8 fL (80-100); Mean Platelet Volume 9.2 fL (7.4-10.4); Monocytes # (auto) 1.11 K/uL (0.11-0.59); Monocytes % (auto) 10.4 %; Neutrophils # (auto) 7.96 K/uL (1.4-6.5); Neutrophils % (auto) 74.6 %; Platelet Count 375 K/uL (130-400); RDW Coefficient of Variation 16.9 % (11.5-14.5); RDW Standard Deviation 51.9 fL (36.4-46.3); Red Blood Count 3.88 M/uL (4.7-6.1); White Blood Count 10.66 K/uL (4.8-10.8)
[2020-12-28 21:46] LABS: INR 1.2 (0.9-1.1); Partial Thromboplastin Time 27.2 Seconds (21.0-31.0)
[2020-12-28 21:47] LABS: Albumin Level 2.4 gm/dl (3.4-5.0); BUN Creatinine Ratio 18.8 (10-20); Blood Urea Nitrogen 24 mg/dl (7-18); Carbon Dioxide 27 mmol/L (21-32); Chloride 104 mmol/L (98-107); Est GFR (African American) 70.2 ml/min; Est GFR (Non-African American) 60.6 ml/min; Glucose 193 mg/dl (70-99); Magnesium 1.9 mg/dl (1.8-2.4); Potassium 3.7 mmol/L (3.5-5.1); Sodium 136 mmol/L (136-145)
[2020-12-28 21:50] LABS: Alanine Aminotransferase 16 U/L (12-78); Albumin Globulin Ratio 0.4 (0.9-2); Alkaline Phosphatase 135 U/L (45-117); Aspartate Aminotransferase 17 U/L (15-37); Bilirubin,Total 0.5 mg/dl (0.2-1); Globulin 5.9 gm/dl (2.5-4.0); Total Protein 8.3 gm/dl (6.4-8.2)
[2020-12-28] MEDS ORDERED: MoRPHine SULFATE 10 MG/ML CARP/VIAL IV PRN (22:12)
[2020-12-29] MEDS ORDERED: PHARMACY GLYCEMIC MGMT CONSULT PRN (00:45)
[2020-12-29] MEDS ORDERED: AMMONIUM LACTATE 12% LOTION 225 GM BTL EXT PRN (00:45)
[2020-12-29] MEDS ORDERED: ALBUTEROL HFA 8 GM INHALER INH PRN (00:45)
[2020-12-29] MEDS ORDERED: HYDROmorphone INJ 0.5 MG/0.5 ML SYR IV PRN (00:45)
[2020-12-29] MEDS ORDERED: ACETAMINOPHEN 325 MG TAB PO PRN (00:45)
[2020-12-29] MEDS ORDERED: HYDROCODONE/ACETAMOPHEN 5/325MG TAB PO PRN (00:45)
[2020-12-29] MEDS ORDERED: ONDANSETRON INJ 2 MG/ML 2 ML VIAL IV PRN (00:45)
[2020-12-29] MEDS ORDERED: traMADol HCL 50 MG TABLET PO PRN (00:45)
[2020-12-29] MEDS ORDERED: PIPERACILL/TAZOBAC CONSULT ACTIVE PRN (00:45)
[2020-12-29] MEDS ORDERED: NITROGLYCERIN SL 0.4 MG/TAB TAB SL PRN ×2 (00:45)
--- NOTE | 2020-12-29 00:49 | History and Physical Report ---
DATE OF ADMISSION: 12/28/2020 CHIEF COMPLAINT: Left lower extremity infection. HISTORY OF PRESENT ILLNESS: This is a 55-year-old male with past medical history significant for chronic systolic and diastolic CHF, history of ischemic cardiomyopathy, CAD, history of SVT, AICD placement in 10/2019, paroxysmal atrial fibrillation, anticoagulation on Coumadin, history of DVT, hypertension, hyperlipidemia, chronic kidney disease stage III, baseline creatinine of 1.5- 1.7, history of obstructive sleep apnea, on BiPAP, history of asthma, history of insulin-dependent type 2 diabetes, diabetic peripheral neuropathy, hypothyroidism, chronic left nonhealing diabetic foot ulcer with diagnosis of osteomyelitis on recent admission. Currently at home. On last admission, supposed to be seen by surgery, but he went home, but he still is on IV daptomycin. Saw family doctor and now decided to get amputation done and the patient was sent to the hospital. The patient complains of pain in the left leg, not ambulating much because of pain. Lives alone. Denies any fevers. Currently resting comfortably and hemodynamically stable. Denies any headaches. He says when he stands up, he has some dizziness. Complains of right ear pain that started like a few days back. He always has some blurred vision. No runny nose, no sore throat. No cough. Appetite is okay. No difficulty swallowing. No chest pain, no shortness of breath, no nausea, no abdominal pain, no diarrhea or constipation, no blood in stool or black stool. He says he feels like he is not emptying his bladder properly. No hematuria or burning micturition. ALLERGIES: TESSALON PERLES, BENZOATE. PAST MEDICAL HISTORY: As mentioned above. PAST SURGICAL HISTORY: Left wound debridement, colonoscopy, cardiac cath, EGDs, ablation of the ventricular tachycardia, status post defibrillator, left shoulder decompression for impingement, tonsillectomy and adenoidectomy. MEDICATIONS: The patient is on albuterol 2 puffs inhalation q.i.d. p.r.n., aspirin 81 mg p.o. a.m., atorvastatin 80 mg p.o. at bedtime, clobetasol 1 application topical b.i.d., diclofenac sodium 4 grams externally b.i.d., vitamin D 50,000 units p.o. weekly, Flonase 2 sprays intranasally b.i.d., gabapentin 300 mg p.o. t.i.d., hydrocodone/acetaminophen 1 tablet p.o. q.6 hours p.r.n., Levsin 0.125 mg p.o. t.i.d., insulin pump, levothyroxine 88 mcg p.o. daily, magnesium oxide 400 mg p.o. a.m., metoprolol succinate 50 mg p.o. b.i.d., mometasone/formoterol 2 puffs b.i.d., nitroglycerin 0.4 mg sublingual p.r.n., omeprazole 20 mg p.o. a.m., potassium chloride 20 mEq p.o. daily, spironolactone 25 mg p.o. daily, torsemide 20 mg p.o. b.i.d., tramadol 50 mg p.o. q.6 hours p.r.n., Coumadin 3 mg on Sundays and and 2 mg on Mondays, Tuesdays, Wednesdays, Fridays and Saturdays. FAMILY HISTORY: Significant for father had lung cancer; son has diabetes, hypertension, allergies; mother has bone marrow cancer; sister has diabetes; daughter has constipation; sister has stroke. SOCIAL HISTORY: Currently lives alone. No smoking. Alcohol, rarely. No drug use. REVIEW OF SYSTEMS: As per HPI. Rest of the review of systems is negative. PHYSICAL EXAMINATION: GENERAL: The patient is morbidly obese, not in acute distress. VITAL SIGNS: Temperature 36.5, pulse 64, respiratory rate 20, blood pressure 124/69, oxygen 99% on room air. HEENT: Pupils equal, round and reactive to light. Oral mucosa moist. NECK: No JVD, no neck masses. CARDIOVASCULAR: S1 and S2 heard, regular rate and rhythm. No murmur, no gallop. RESPIRATORY SYSTEM: Normal AP diameter. No accessory muscle use. No wheezing, no crackles. ABDOMEN: Soft, bowel sounds present, nontender, no distention. CENTRAL NERVOUS SYSTEM: Cranial nerves II-XII grossly intact, nonfocal. EXTREMITIES: Bilateral lower extremity edema present with left lower extremity superficial wounds and erythema seen. LABORATORY DATA: WBC 10.6, hemoglobin 10.4, hematocrit 32.9, platelets 375. PT 12.0, INR 1.2, APTT 27.2. Sodium 136, potassium 3.7, chloride 104, bicarb 27, BUN 24, creatinine 1.3, serum glucose 193, lactate 1.4, calcium 9, magnesium 1.9, total bilirubin 0.5, AST 17, ALT 16, alkaline phosphatase 135. ELECTROCARDIOGRAM: Sinus rhythm with PVCs at a rate of 71, incomplete right bundle-branch block, nonspecific ST changes seen. ASSESSMENT AND PLAN: This is a 55-year-old male, presents with ongoing left lower extremity diabetic foot ulcer with osteomyelitis. 1. Left foot osteomyelitis, nonhealing diabetic foot infection. He has a history of Corynebacterium , enterococcus currently he is on IV daptomycin. Planned for above-knee amputation or below-knee amputation of the leg, but he signed out of hospital on 12/21. Saw the family doctor and after discussion with the family doctor, comes back to the hospital for plan for amputation of the left lower extremity by Dr. Gonzalez, possibly on Thursday. We will continue the IV daptomycin and also add IV Zosyn and pain control. Monitor in the med- telemetry. 2. History of chronic back pain. Continue his home medications. 3. History of type 2 diabetes. Continue his insulin pump. We will consult with glycemic pharmacy. 5. History of ischemic cardiomyopathy, history of mixed diastolic and systolic congestive heart failure, chronic. Echocardiogram in 04/2019 showed ejection fraction of 30%-35%, status post automatic implantable cardioverter- defibrillator. Continue his home diuretics, Aldactone, torsemide, potassium supplement and metoprolol succinate. We will monitor for any volume overload. 6. History of hypertension. Continue his home blood pressure medication. 7. History of atrial fibrillation, rate controlled with metoprolol. Holding Coumadin for possible procedure.iv heparin for now. 8. History of chronic kidney disease stage III, baseline creatinine 1.5-1.7. We will follow the laboratories. 9. Obstructive sleep apnea, on BiPAP at bedtime. 10. Morbid obesity, needs counseling. 11. History of deep venous thrombosis. 12. History of coronary artery disease, currently stable. Continue on statin, beta noy and aspirin. 13. Deep venous thrombosis prophylaxis, holding Coumadin. We will place him on iv heparin for now.. Plan for surgery on Thursday. We will plan to hold the heparin prior to surgery. DISPOSITION: Admit to med-tele. PT/OT prior to discharge. Social service to help with discharge planning. Level 1, full code. Job ID: [id number] [id number]
[2020-12-29] MEDS ORDERED: PATIENT'S HEIGHT AND/OR WEIGHT NEEDED SCH (01:00)
[2020-12-29] MEDS ORDERED: DEXTROSE 50% 50 ML SYRINGE IV PRN (01:15)
[2020-12-29] MEDS ORDERED: CARBOHYDRATES FOR HYPOGLYCEMIA PO PRN (01:15)
[2020-12-29] MEDS ORDERED: GLUCOSE 40% GEL 15 GM TUBE PO PRN (01:15)
[2020-12-29] MEDS ORDERED: GLUCOSE 10 TABS/TUBE PO PRN (01:15)
[2020-12-29] MEDS ORDERED: GLUCAGON FOR INJ 1 MG VIAL SQ PRN (01:15)
[2020-12-29] MEDS ORDERED: PIPERACILLIN/TAZOBACTAM 4.5 GM in DEXTROSE 5% 100 ML IV ONE (01:45)
[2020-12-29] MEDS: HYDROmorphone INJ 0.5 MG/0.5 ML SYR IV PRN ×4 (01:56→22:19)
[2020-12-29] MEDS: DAPTOmycin 650 MG in SYRINGE 0 ML IV SCH (01:57)
[2020-12-29] MEDS: METOPROLOL SUCC 50MG EXT REL TAB PO SCH ×3 (02:04→22:14)
[2020-12-29] MEDS: METOPROLOL SUCC 25MG EXT REL TAB PO SCH ×3 (02:04→22:14)
[2020-12-29] MEDS: HYOSCYAMINE SULFATE 0.125 MG TAB PO SCH ×4 (02:04→22:14)
[2020-12-29] MEDS: GABAPENTIN 300 MG CAP PO SCH ×4 (02:04→22:13)
[2020-12-29 05:51] LABS: Basophils # (auto) 0.07 K/uL (0-0.2); Basophils % (auto) 0.8 %; Eosinophils # (auto) 0.27 K/uL (0-0.5); Hematocrit (blood only) 32.5 % (42-52); Immature Granulocytes # (auto) 0.03 K/uL (0.00-0.02); Immature Granulocytes % (auto) 0.3 %; Lymphocytes # (auto) 1.43 K/uL (1.2-3.4); Lymphocytes % (auto) 15.7 %; Mean Corpuscular Hemoglobin 26.6 pg (25-34); Mean Corpuscular Hgb Conc 30.8 g/dL (32-36); Mean Corpuscular Volume 86.4 fL (80-100); Mean Platelet Volume 9.3 fL (7.4-10.4); Monocytes # (auto) 1.17 K/uL (0.11-0.59); Monocytes % (auto) 12.9 %; Neutrophils # (auto) 6.13 K/uL (1.4-6.5); Neutrophils % (auto) 67.3 %; Platelet Count 290 K/uL (130-400); RDW Coefficient of Variation 16.9 % (11.5-14.5); RDW Standard Deviation 53.7 fL (36.4-46.3); Red Blood Count 3.76 M/uL (4.7-6.1)
[2020-12-29 05:55] LABS: INR 1.2 (0.9-1.1); Prothrombin Time 11.8 Seconds (9.0-12.0)
[2020-12-29 06:11] LABS: BUN Creatinine Ratio 19.1 (10-20); Calcium 8.7 mg/dl (8.5-10.1); Creatinine Clr Calc Pharmacy 98.4 ml/min; Est GFR (African American) 73.6 ml/min; Est GFR (Non-African American) 63.5 ml/min; Magnesium 2.1 mg/dl (1.8-2.4); Potassium 3.7 mmol/L (3.5-5.1)
[2020-12-29] MEDS: LEVOTHYROXINE SODIUM 88 MCG TABLET PO SCH (06:12)
[2020-12-29] MEDS: HYDROCODONE/ACETAMOPHEN 5/325MG TAB PO PRN ×3 (06:12→23:21)
[2020-12-29] MEDS: PIPERACILLIN/TAZOBACTAM 4.5 GM in DEXTROSE 5% 100 ML IV SCH ×3 (06:13→23:23)
[2020-12-29] MEDS ORDERED: Heparin IV Adult Wt-Based Standard *NO* Bolus Protocol IV SCH (07:45)
--- NOTE | 2020-12-29 08:11 | Discharge Summary ---
Date of Service December 29, 2020 Discharged on 12/21/2020 Admission HPI Per Admitting Provider Chief Complaint: Referred by wound care 2/2 to worsening L foot wound and sluggish PICC line. Primary Care Provider: Sherry Maya DO This is a 55-year-old medically complex male who has significant past medical history of chronic systolic and diastolic CHF, ischemic cardiomyopathy, CAD, history of SVT, AICD placement October 2019, PAF anticoagulated on warfarin, history of DVT on warfarin, HTN, HLD, CKD stage III baseline 1.5-1.7, NINA on BiPAP, asthma, insulin-dependent T2DM, diabetic peripheral neuropathy, hypothyroidism, chronic left nonhealing diabetic foot wound who presents to ED secondary to referral from wound care 2/2 to worsening of L foot wound and sluggish PICC Line. Of significance patient recently hospitalized at [facility] 11/2111/29/2020 secondary to worsening left foot wound. Per reports from hospitalization he had previously been following wound care and placed on IV Rocephin secondary to a 10/31 culture that grew a Proteus species. During hospitalization he underwent a soft tissue debridement of the left foot wound with bone biopsy and biopsy of calcaneus. Cultures grew Corynebacterium and Enterococcus. A wound VAC and PICC line was placed. He was discharged to home on IV Unasyn every 6 hours. SNF was recommended but patient refused. He was seen and evaluated today by home health and wound care. His wound VAC had fallen off today and in-home care felt wound worsening and referred him to hospital. His PICC was also felt to be sluggish. Patient complains of increased pain to left foot today. He lives alone. BSGs have been uncontrolled with blood sugars in the 300s. He denies f/c/s, dizziness, lightheaded, chest pain, sob, cough, n/v/d, abdominal pain, change in bowel or urinary habits. Feels his b/l legs are more swollen then usual. Does not monitor weight, unsure if change. In ED patient did have elevated temperature at 37.7 but otherwise hemodynamically stable. Lab work notable for elevated WBC 12.91, H&H 10.8 and 32.9, platelet 430, ESR 102, CRP 13. His INR was therapeutic at 2.4. He was started on IV daptomycin and Zosyn. Blood and wound cultures were obtained. Admission Exam Per Admitting Provider Physical Exam: Constitutional: WD/WN, vitals as above, NAD, sitting up in bed, pleasant, conversing easily Head: Normocephalic, Atraumatic Eyes: PERRL, conjunctivae normal, anicteric sclerae ENMT: external ear and nose normal, oropharynx normal Neck: trachea midline, no thyromegaly normal visual inspection Respiratory: normal respiratory effort, lungs clear to auscultation, no wheeze, rales, rhonchi. Normal insp/exp effort, no accessory muscle use Cardiovascular: RRR, no murmur, significant b/l lower ext lymphedema with chronic venous stasis changes, Vessels: no JVD or carotid bruit , RUE PICC noted Chest: normal inspection of chest Abdomen: normal bowel sounds, soft, nontender, no hepatosplenomegaly Musculoskeletal: no cyanosis or clubbing, extremities motor strength 5/5, Skin: no rashes, warm and dry normal turgor Neurologic: PERRL, EOMI, accommodation nl, no face palsy, no dysarthria CN's II-XI intact bilaterally and moves all extremities Wounds: Left pre tibial area small chronic wound approximately 12. Large wound draining serous fluid of L foot extending to base of 5th metatarsal. + Wound to L calcaneal region with surrounding redness. + wound to R lateral foot. +Found smelling Psychiatric: A+Ox3, euthymic affect Lymphatic: no cervical or axillary lymphadenopathy : deferred Principal Diagnosis Left diabetic foot ulcer Discharge Exam Physical Exam: Sitting on his recliner Constitutional: well developed, well nourished and + obese; not ill appearing Eyes: PERRL, conjunctivae normal, anicteric sclerae ENMT: external ear and nose normal, oropharynx normal Neck: trachea midline, no thyromegaly Respiratory: no respiratory distress and no cough Auscultation: lungs clear to auscultation bilaterally Cardiovascular: Rate/Rhythm: regular rate and regular rhythm; not tachyc ardic Heart Sounds: normal S1 and normal S2; no murmur Extremities: + edema (Bilateral leg edema with chronic skin changes) Gastrointestinal (Abdomen): normal bowel sounds, soft, nontender, no hep atosplenomegaly Inspection/Auscultation: + abdomen distended and normal bowel sounds Percussion/Palpation: abdomen soft; abdomen nontender Musculoskeletal: Ankle: no deformity Neurologic: moves all extremities and + focal motor deficit Psychiatric: A+Ox3, euthymic affect Lymphatic: no cervical or axillary lymphadenopathy Discharge Data Allergies Allergy/AdvReac Type Severity Reaction Status Date / Time benzonatate AdvReac Intermediate choking, Verified 12/28/20 21:19 gagging Consultations 12/28/20 20:31 ED Decision to Admit Stat 12/29/20 08:00 Consult Vascular Surgery Routine Hospital Course (1) Diabetic infection of left foot: (2) Acute osteomyelitis of left foot: Plan: This is a 55-year-old medically complex male who has significant past medical history of chronic systolic and diastolic CHF, ischemic cardiomyopathy, CAD, history of SVT, AICD placement October 2019, PAF anticoagulated on warfarin, history of DVT on warfarin, HTN, HLD, CKD stage III baseline 1.5-1.7, NINA on BiPAP, asthma, insulin-dependent T2DM, diabetic peripheral neuropathy, hypothyroidism, chronic left nonhealing diabetic foot wound who presents to ED secondary to referral from wound care 2/2 to worsening of L foot wound and sluggish PICC Line. Status post soft tissue debridement of left foot wound and bone biopsy left metatarsal confirming osteomyelitis on 11/23 at [facility]. Per records + Corynebacterium and Enterococcus. Placed on IV Unasyn every 6 hours, unknown compliance and for the past 3 days PICC line has been sluggish. Presents today with worsening of wound and pain. He does not meet criteria for SIRS/sepsis, but does have leukocytosis 12.91, ESR 1 or 2, CRP 13. pt with multiple wounds of L foot and lateral wound to R foot Blood cultures -negative Wound cultures-left foot ulcer is growing Corynebacterium species and Camila albicans/dubliniensis with yeast and right foot low counts of mixed isabel Continue IV Daptomycin and Zosyn -started in ED MRI of the left foot did show osteomyelitis Appreciate orthopedic input and recommendation-recommended to have him amputation of the left foot Appreciate ID input and recommendation to continue IV antibiotic for long time and also suggested to have surgery as well Discussed with the patient and he wanted to wait till Dr. Bates comes on Thursday and give him the definitive answer Fluconazole was added since yesterday to cover fungal species and will discuss with the ID whether to continue the antifungal or not Clinically remains stable and awaiting Dr. Callejas input DARRYL Has had lower extremity Dopplerdid not show any significant arterial obstruction There were three advised to have amputation either BKA or AKA on the left side He will have vascular surgery evaluation determined the level of amputation is best for him He remains stable-wants to participate in the care management and is awaiting to hear from Dr. Bates about definitive management Discussed with Dr. Bates who will see him shortly Discussed with Dr. Bates who is arranging for definitive AKA on Thursday by Dr. Gonzalez. This was discussed with the patient in detail and was strongly advised not to leave the hospital then he will lose the opportunity to have the amputation on Thursday. He clearly stated that he understands the consequences of not having it done on Thursday if he leaves the hospital. He clearly understood that his condition may get worse and he may have further complication at home. After long discussion he decided to go home and he was sent home this afternoon. Ongoing back pain Complicated by posture in the hospital bed Will apply Voltaren gel locally twice daily Back pain is better His oral pain medications have been restarted Pain has been improving Bilateral feet pain More on the left than the right Has been on Dilaudid intravenously 0.5 mg every 4 hourly as needed With a change in the doses of Dilaudid for pain is better His pain is off-and-on and has been asking for more pain medications Severe anxiety Appreciate psychiatrist input and recommendation Has been getting Ativan as needed Does not have any more anxiety but gets agitated at times (3) Diabetic foot ulcer: Plan: pt with multiple wounds of L foot, L pretibial area and R lateral foot wound care/nurse consulted ortho consulted Await MRI result-as above Please see the picture of the wound to find out how is it Discussed with the ID specialist in [place] We will continue Diflucan and preference will be given to intravenous vancomycin Discussed with ID in [place] and will continue with daptomycin for a total of 6 weeks Prescription has been given to home health nurse (4) T2DM (type 2 diabetes mellitus): Plan: a1c 7.3 10/18/20 insulin pump consult glycemic pharmacy for assistance (5) CAD (coronary artery disease): Plan: Denies any acute cardiac symptoms of chest pain and palpitation No acute cardiac symptoms (6) Ischemic cardiomyopathy: Plan: No acute symptoms Has AICD in situ Does not have any cardiac symptoms (7) CHF (congestive heart failure): Plan: Patient with mixed diastolic and systolic CHF Last echocardiogram 05/26/2019 showed EF 30 to 35% with large apical, septal, anterior septal wall motion abnormality and akinesis He did have echo 07/2020; however very limited but documented EF Grossly normal daily weights, strict I and O saturating okay on room air pt c/o increased lower ext edema place on lasix IV 20mg BID continue metoprolol, aldactone, KCL hold statin 2/2 to dapto use-no shortness of breath and chest examination remained unremarkable No symptoms of fluid overload-we will continue his outpatient diuretics (8) Hypertension: Plan: Bp stable continue home meds (9) Atrial fibrillation: Plan: rate and rhythm controlled on metoprolol hold warfarin in setting of possible procedure (10) CKD (chronic kidney disease) stage 3, GFR 30-59 ml/min: Plan: Baseline creatinine 1.5-1.7 BUN/creatinine stable at 22 and 1.25 Monitor daily (11) NINA on CPAP: Plan: Bipap at HS (12) Morbid obesity: Plan: BMI 46.4 career specialist consult ordered DVT ppx: INR therapeutic, warfarin on hold, place on SQ heparin when INR < 2 Dispo: PCU PCP: Francesco FULL CODE Plan: He wanted to go home no matter what is a schedule or not He was advised to nonweight-bear on left foot and continue with IV antibiotic Very strongly advised to have a follow-up appointment with [facility] orthopedic surgeon of his choice within the next week as he wanted to have a second opinion He did not want to be transferred to [facility] today Admission and Anticipated Discharge Date Admission Date: December 13, 2020 Total Time Total Time Spent Total Time Spent (In Minutes): 45 minutes Discharge Plan Discharge Items Reason For Visit: LEFT LEG INFECTION Condition on Discharge: Fair Follow-up/Referrals: Sherry Maya DO [Primary Care Provider] - Medications and DC Order Prescriptions: No Action fluticasone propionate [Flonase Allergy Relief] 50 mcg/actuation spray,suspension 2 sprays INTNAS BID RF: 0 magnesium oxide 400 mg capsule 400 mg PO QAM RF: 0 mometasone-formoterol [Dulera] 200-5 mcg/actuation HFA aerosol inhaler 2 puffs INH BID RF: 0 nitroglycerin 0.4 mg tablet, sublingual 0.4 mg SL Q5M PRN (Reason: Chest Pain) RF: 0 omeprazole 20 mg capsule,delayed release(DR/EC) 20 mg PO QAM RF: 0 tramadol 50 mg tablet 50 mg PO Q6H PRN (Reason: pain) RF: 0 (DME) blood-glucose meter [OneTouch Verio Flex meter] Misc See Rx Instructions .ROUTE .MEDSUPPLY Qty: 1 RF: 0 insulin aspart U-100 [Novolog U-100 Insulin aspart] 100 unit/mL solution See Rx Instructions continuous subcutaneous infusion DAILY Qty: 12 RF: 5 hyoscyamine sulfate [Levsin] 0.125 mg Tablet 0.125 mg PO TID RF: 0 gabapentin 300 mg Capsule 300 mg PO TID RF: 0 ergocalciferol (vitamin D2) 2,500 unit Capsule 50,000 unit PO WK RF: 0 albuterol sulfate [Ventolin HFA] 90 mcg/actuation Hfa Aerosol Inhaler 2 puff INHALATION QID PRN (Reason: SHORT OF BREATH) RF: 0 clobetasol 0.05 % cream 1 applic TOPICAL BID RF: 0 aspirin 81 mg Tablet,Delayed Release (Dr/Ec) 81 mg PO QAM RF: 0 warfarin 1 mg tablet 3 mg PO SUTH RF: 0 Lac-Hydrin Five 5 % Lotion 1 applic TOPICAL DAILY PRN (Reason: Dry Skin) RF: 0 potassium chloride 20 mEq tablet extended release 20 meq PO DAILY Qty: 30 RF: 0 metoprolol succinate 50 mg tablet extended release 24 hr 50 mg PO BID RF: 0 hydrocodone-acetaminophen 5-325 mg Tablet 1 tab PO Q6H PRN (Reason: Pain) RF: 0 metoprolol succinate 25 mg tablet extended release 24 hr 25 mg PO BID RF: 0 spironolactone 25 mg Tablet 25 mg PO DAILY RF: 0 levothyroxine 88 mcg tablet 88 mcg PO DAILY RF: 0 torsemide 20 mg tablet 20 mg PO BID RF: 0 warfarin 1 mg Tablet 2 mg PO [id number] RF: 0 diclofenac sodium [Voltaren Arthritis Pain] 1 % Gel 4 g EXT BID 10 Days Qty: 50 RF: 0 atorvastatin 80 mg tablet 80 mg PO HS Qty: 0 RF: 0 Admission Data Admit Date/Time: 09/03/21 21:46 Attending Provider: Jeni Ewing I. Admit Provider: Fei Pendleton Primary Care Provider: Sherry Maya Other Providers: Fei Pendleton ; Nate Gonzalez ; Cl Cruz
[2020-12-29 08:57] LABS: Estimated Average Glucose 186 mg/dl; Hemoglobin A1C 8.1 % (4.5-5.6)
[2020-12-29] MEDS ORDERED: INSULIN ASPART PER UNIT SQ SCH (09:00)
[2020-12-29] MEDS: ASPIRIN 81 MG ECTAB PO SCH (09:57)
[2020-12-29] MEDS: CLOBETASOL SCH ×3 (09:57→23:48)
[2020-12-29] MEDS: FLUTICASONE/VILANTEROL 200/25MCG 14 PUFFS/INHALER INH SCH (09:58)
[2020-12-29] MEDS: FLUTICASONE PROPIONATE NA SPR 16 GM BTL SCH ×2 (09:58→22:12)
[2020-12-29] MEDS: DICLOFENAC SOD 1% GEL 100 GM TUBE EXT SCH ×2 (09:58→22:19)
[2020-12-29] MEDS: MAGNESIUM OXIDE 400 MG TAB PO SCH (10:00)
[2020-12-29] MEDS: TORSEMIDE 20 MG TAB PO SCH ×2 (10:01→16:01)
[2020-12-29] MEDS: POTASSIUM CHLORIDE CRTAB 20 MEQ TABCR PO SCH (10:01)
[2020-12-29] MEDS: PANTOprazole 40 MG TAB PO SCH (10:01)
[2020-12-29] MEDS: SPIRONOLACTONE 25 MG TAB PO SCH (10:01)
[2020-12-29] MEDS: NovoLOG INSULIN PUMP SCH ×4 (10:03→22:15)
--- NOTE | 2020-12-29 10:08 | Hospitalist Progress Note ---
Date of Service December 29, 2020 Assessment & Plan (1) Acute osteomyelitis of left foot: (2) Acute pain of left foot: (3) Diabetic infection of left foot: (4) Diabetic ulcer of left foot associated with type 2 diabetes mellitus, with fat layer exposed: Plan: Patient reports that he is agreeable to surgery at this time. Currently on daptomycin and Zosyn. Pain control Awaiting vascular surgery evaluation and plan for possible surgery. (5) T2DM (type 2 diabetes mellitus): Plan: Hemoglobin A1c is 8.1. Continue monitoring blood glucose on insulin sliding scale per protocol. Optimize control. Patient declined heart healthy diet and was okay with carbohydrate controlled diet. Spent some time educating patient on need for optimal diabetic control to aid with healing. (6) Ischemic cardiomyopathy: (7) S/P ICD (internal cardiac defibrillator) procedure: (8) Chronic diastolic heart failure: Plan: Continue home diuretics [Aldactone, torsemide] Continue metoprolol succinate. (9) Atrial fibrillation: Plan: Rate controlled. Coumadin on hold in view of possible procedure Due to risk factors, we will maintain anticoagulation DVT prophylaxis with heparin drip for now as this can be discontinued prior to surgery. (10) NINA on CPAP: Plan: CPAP at bedtime (11) CAD (coronary artery disease): Plan: Continue aspirin, statin (12) Morbid obesity: Plan: Need weight management postop. Counseled on need for weight loss. (13) DVT prophylaxis: Plan: Heparin drip as mentioned above Admission and Anticipated Discharge Date Admission Date: December 28, 2020 Subjective 55-year-old male with past medical history significant for chronic systolic and diastolic CHF, history of ischemic cardiomyopathy, CAD, history of SVT, AICD placement in 10/2019, paroxysmal atrial fibrillation, anticoagulation on Coumadin, history of DVT, hypertension, hyperlipidemia, chronic kidney disease stage III, baseline creatinine of 1.5-1.7, history of obstructive sleep apnea, on BiPAP, history of asthma, history of insulin-dependent type 2 diabetes, diabetic peripheral neuropathy, hypothyroidism, chronic left nonhealing diabetic foot ulcer with diagnosis of osteomyelitis on recent admission and amputation recommended but patient decided to go home without surgery instead on antibiotics, presented this time for continuing pain. Patient seen and examined. Reports only pain in the left leg. Reports pain affects ambulation Reports chronic blurred vision Denies any fevers, chills, nausea vomiting Review of Systems Review of Systems: Other review of system negative except as above Physical Exam Constitutional: + well hydrated and + obese; no acute distress Eyes: PERRL, conjunctivae normal, anicteric sclerae ENMT: external ear and nose normal, oropharynx normal Respiratory: normal respiratory effort, lungs clear to auscultation Cardiovascular: Rate/Rhythm: regular rate and regular rhythm S1-S2 Gastrointestinal (Abdomen): normal bowel sounds, soft, nontender, no hepatosplenomegaly Musculoskeletal: Deep extensive wound on the lateral aspect of left foot (see previous images) Wound on lateral right leg Pedal edema Neurologic: PERRL, EOMI, accommodation nl, no face palsy, no dysarthria Psychiatric: A+Ox3, euthymic affect Results & Data Results & Data ([facility]) Vital Signs (Past 12 Hours) Vital Signs Temp Pulse Pulse Pulse Resp BP BP 12/29/20 07:34 37.0 C 64 20 120/69 12/29/20 02:43 36.9 C 70 18 105/56 L 12/29/20 02:16 36.6 C 66 18 127/80 12/29/20 01:33 70 12/29/20 00:00 130/93 12/28/20 23:30 64 23 130/68 12/28/20 23:00 66 17 120/71 12/28/20 22:30 65 24 119/68 12/28/20 22:10 Pulse Ox 12/29/20 07:34 96 12/29/20 02:43 96 12/29/20 02:16 100 12/29/20 01:33 12/29/20 00:00 98 12/28/20 23:30 97 12/28/20 23:00 97 12/28/20 22:30 97 12/28/20 22:10 99 Laboratory Results Abnormal lab results 12/28/20 12/28/20 12/28/20 Range/Units 21:15 21:15 21:15 RBC 3.88 L (4.7-6.1) M/uL Hgb 10.4 L (14.0-18.0) g/dL Hct 32.9 L (42-52) % MCHC 31.6 L (32-36) g/dL RDW Std Deviation 51.9 H (36.4-46.3) fL RDW Coeff of Мария 16.9 H (11.5-14.5) % Neut # (Auto) 7.96 H (1.4-6.5) K/uL Yates # (Auto) 1.11 H (0.11-0.59) K/uL Immature Gran # (Auto) 0.07 H (0.00-0.02) K/uL INR 1.2 H (0.9-1.1) BUN 24 H (7-18) mg/dl Glucose 193 H (70-99) mg/dl Hemoglobin A1c (4.5-5.6) % Alkaline Phosphatase 135 H (45-117) U/L Total Creatine Kinase (39-308) U/L Total Protein 8.3 H (6.4-8.2) gm/dl Albumin 2.4 L (3.4-5.0) gm/dl Globulin 5.9 H (2.5-4.0) gm/dl Albumin/Globulin Ratio 0.4 L (0.9-2) 12/29/20 12/29/20 12/29/20 Range/Units 05:27 05:27 05:27 RBC 3.76 L (4.7-6.1) M/uL Hgb 10.0 L (14.0-18.0) g/dL Hct 32.5 L (42-52) % MCHC 30.8 L (32-36) g/dL RDW Std Deviation 53.7 H (36.4-46.3) fL RDW Coeff of Мария 16.9 H (11.5-14.5) % Neut # (Auto) (1.4-6.5) K/uL Yates # (Auto) 1.17 H (0.11-0.59) K/uL Immature Gran # (Auto) 0.03 H (0.00-0.02) K/uL INR (0.9-1.1) BUN 24 H (7-18) mg/dl Glucose 115 H (70-99) mg/dl Hemoglobin A1c 8.1 H (4.5-5.6) % Alkaline Phosphatase (45-117) U/L Total Creatine Kinase 30 L (39-308) U/L Total Protein (6.4-8.2) gm/dl Albumin (3.4-5.0) gm/dl Globulin (2.5-4.0) gm/dl Albumin/Globulin Ratio (0.9-2) 12/29/20 Range/Units 05:27 RBC (4.7-6.1) M/uL Hgb (14.0-18.0) g/dL Hct (42-52) % MCHC (32-36) g/dL RDW Std Deviation (36.4-46.3) fL RDW Coeff of Мария (11.5-14.5) % Neut # (Auto) (1.4-6.5) K/uL Yates # (Auto) (0.11-0.59) K/uL Immature Gran # (Auto) (0.00-0.02) K/uL INR 1.2 H (0.9-1.1) BUN (7-18) mg/dl Glucose (70-99) mg/dl Hemoglobin A1c (4.5-5.6) % Alkaline Phosphatase (45-117) U/L Total Creatine Kinase (39-308) U/L Total Protein (6.4-8.2) gm/dl Albumin (3.4-5.0) gm/dl Globulin (2.5-4.0) gm/dl Albumin/Globulin Ratio (0.9-2)
[2020-12-29] MEDS ORDERED: HEPARIN SOD (PORCINE) 1000 UNIT/ML IV ONE (11:14)
--- NOTE | 2020-12-29 11:27 | Pharmacy Report ---
Pharmacy Glycemic Short Note 2 - Date of Service December 29, 2020 - Glycemic Short BSG Results (Last 24 hours): 12/28/20 12/29/20 21:15 05:27 Glucose 193 H 115 H OUTPATIENT ANTIDIABETIC REGIMEN: * Insulin pump (Novolog) - 2 units/hr as basal plus CF 20 CR 4 ASSESSMENT: * Mr Lyle is a 55 y/o M with a PMH of T2DM controlled on insulin pump who presents for amputation. * Pharmacy consulted. Patient currently on insulin pump. Historically does well while on pump inhouse. Continue for now PLAN FOR INPATIENT GLYCEMIC CONTROL: Pt is to manage BSGs with insulin pump per outpatient settings. * RN will have patient read and sign agreement CF 006 Insulin Pump Therapy Patient Agreement. * RN will provide and explain form NS-824 Flowsheet for Patient * Patient will document their insulin dose given on NS-824 which is kept at the bedside, available to caregivers upon request, and which becomes part of the permanent medical record. If at any time the patients condition evidences that he/she is not able to manage the insulin pump (i.e. frequent hypo/hyperglycemia) Pharmacy will assume glycemic control by discontinuing the pump & managing with SQ basal bolus insulin regimen for the interim. PLAN FOR DISCHARGE: * tbd
[2020-12-29] MEDS: HEPARIN SODIUM/DEXTROSE 25,000 UNITS/500 ML BAG IV SCH ×2 (11:52→23:33)
--- NOTE | 2020-12-29 12:13 | Electrocardiogram Report ---
Test Reason : Blood Pressure : / mmHG Vent. Rate : 071 BPM Atrial Rate : 071 BPM P-R Int : 202 ms QRS Dur : 100 ms QT Int : 366 ms P-R-T Axes : 046 -10 110 degrees QTc Int : 397 ms Poor data quality, interpretation may be adversely affected Sinus rhythm with Premature supraventricular complexes Incomplete right bundle branch block Anteroseptal infarct (cited on or before 16-AUG-2020) Abnormal ECG When compared with ECG of 13-DEC-2020 18:33, Premature supraventricular complexes are now Present QT has shortened Confirmed by Nader Mcpherson ([id number]) on 12/29/2020 12:13:02 PM Referred By: Sherry Maya Confirmed By:Austin Mcpherson
[2020-12-29] MEDS ORDERED: LORATADINE 10 MG TAB PO ONE (18:28)
[2020-12-29 18:35] LABS: Partial Thromboplastin Ratio 1.6; Partial Thromboplastin Time 40.9 Seconds (21.0-31.0)
[2020-12-29] MEDS: ATORVASTATIN 40 MG TAB PO SCH (22:11)
[2020-12-29] MEDS ORDERED: HYDROmorphone INJ 0.5 MG/0.5 ML SYR IV STA (23:59)
[2020-12-30] MEDS: DAPTOmycin 650 MG in SYRINGE 0 ML IV SCH (01:22)
[2020-12-30 01:37] LABS: Partial Thromboplastin Ratio 1.5; Partial Thromboplastin Time 40.5 Seconds (21.0-31.0)
[2020-12-30] MEDS: HYDROmorphone INJ 0.5 MG/0.5 ML SYR IV PRN ×5 (06:27→21:05)
[2020-12-30] MEDS: LEVOTHYROXINE SODIUM 88 MCG TABLET PO SCH (06:28)
[2020-12-30 07:25] LABS: Hematocrit (blood only) 31.1 % (42-52); Hemoglobin 9.7 g/dL (14.0-18.0); Mean Corpuscular Hemoglobin 26.9 pg (25-34); Mean Corpuscular Hgb Conc 31.2 g/dL (32-36); Mean Corpuscular Volume 86.1 fL (80-100); Mean Platelet Volume 9.1 fL (7.4-10.4); Platelet Count 353 K/uL (130-400); RDW Coefficient of Variation 16.8 % (11.5-14.5); RDW Standard Deviation 53.3 fL (36.4-46.3); Red Blood Count 3.61 M/uL (4.7-6.1); White Blood Count 7.35 K/uL (4.8-10.8)
[2020-12-30 07:38] LABS: INR 1.2 (0.9-1.1); Prothrombin Time 11.6 Seconds (9.0-12.0)
[2020-12-30 07:42] LABS: Calcium 8.6 mg/dl (8.5-10.1); Creatinine Clr Calc Pharmacy 90.3 ml/min; Est GFR (African American) 71.5 ml/min; Est GFR (Non-African American) 61.7 ml/min; Potassium 3.4 mmol/L (3.5-5.1)
[2020-12-30 07:48] LABS: Partial Thromboplastin Ratio 1.7
[2020-12-30 07:51] LABS: Partial Thromboplastin Time 45.9 Seconds (21.0-31.0)
[2020-12-30] MEDS: PIPERACILLIN/TAZOBACTAM 4.5 GM in DEXTROSE 5% 100 ML IV SCH ×3 (08:00→23:41)
[2020-12-30] MEDS: NovoLOG INSULIN PUMP SCH ×4 (08:15→23:42)
[2020-12-30] MEDS: HYOSCYAMINE SULFATE 0.125 MG TAB PO SCH ×3 (08:31→20:53)
[2020-12-30] MEDS: GABAPENTIN 300 MG CAP PO SCH ×3 (08:31→20:53)
[2020-12-30] MEDS: SPIRONOLACTONE 25 MG TAB PO SCH (08:32)
[2020-12-30] MEDS: METOPROLOL SUCC 25MG EXT REL TAB PO SCH ×2 (08:32→20:54)
[2020-12-30] MEDS: LORATADINE 10 MG TAB PO SCH (08:32)
[2020-12-30] MEDS: POTASSIUM CHLORIDE CRTAB 20 MEQ TABCR PO SCH (08:32)
[2020-12-30] MEDS: METOPROLOL SUCC 50MG EXT REL TAB PO SCH ×2 (08:33→20:53)
[2020-12-30] MEDS: MAGNESIUM OXIDE 400 MG TAB PO SCH (08:33)
[2020-12-30] MEDS: TORSEMIDE 20 MG TAB PO SCH ×2 (08:33→16:49)
[2020-12-30] MEDS: PANTOprazole 40 MG TAB PO SCH (08:33)
[2020-12-30] MEDS: ASPIRIN 81 MG ECTAB PO SCH (08:33)
[2020-12-30] MEDS: FLUTICASONE/VILANTEROL 200/25MCG 14 PUFFS/INHALER INH SCH (08:34)
[2020-12-30] MEDS: ATORVASTATIN 40 MG TAB PO SCH ×2 (08:35→20:52)
[2020-12-30] MEDS: FLUTICASONE PROPIONATE NA SPR 16 GM BTL SCH ×2 (08:39→20:52)
[2020-12-30] MEDS: DICLOFENAC SOD 1% GEL 100 GM TUBE EXT SCH ×2 (08:39→20:52)
--- NOTE | 2020-12-30 08:59 | Hospitalist Progress Note ---
Date of Service December 30, 2020 Assessment & Plan (1) Acute osteomyelitis of left foot: (2) Acute pain of left foot: (3) Diabetic infection of left foot: (4) Diabetic ulcer of left foot associated with type 2 diabetes mellitus, with fat layer exposed: Plan: Currently on daptomycin and Zosyn. Pain control Awaiting vascular surgery evaluation and plan for possible surgery. (5) T2DM (type 2 diabetes mellitus): Plan: Hemoglobin A1c is 8.1. Continue monitoring blood glucose on insulin sliding scale per protocol. Optimize control. Patient declined heart healthy diet and was okay with carbohydrate controlled diet. Spent some time educating patient on need for optimal diabetic control to aid with healing. (6) Ischemic cardiomyopathy: (7) S/P ICD (internal cardiac defibrillator) procedure: (8) Chronic diastolic heart failure: Plan: Continue home diuretics [Aldactone, torsemide] Continue metoprolol succinate. (9) Atrial fibrillation: Plan: Rate controlled Coumadin on hold in view of possible procedure Currently on heparin drip (10) NINA on CPAP: Plan: CPAP at bedtime (11) CAD (coronary artery disease): Plan: Continue aspirin, statin (12) Morbid obesity: Plan: Need weight management postop. Counseled on need for weight loss. (13) DVT prophylaxis: Plan: Heparin drip as mentioned above Admission and Anticipated Discharge Date Admission Date: December 28, 2020 Subjective 55-year-old male with past medical history significant for chronic systolic and diastolic CHF, history of ischemic cardiomyopathy, CAD, history of SVT, AICD placement in 10/2019, paroxysmal atrial fibrillation, anticoagulation on Coumadin, history of DVT, hypertension, hyperlipidemia, chronic kidney disease stage III, baseline creatinine of 1.5-1.7, history of obstructive sleep apnea, on BiPAP, history of asthma, history of insulin-dependent type 2 diabetes, diabetic peripheral neuropathy, hypothyroidism, chronic left nonhealing diabetic foot ulcer with diagnosis of osteomyelitis on recent admission and amputation recommended but patient decided to go home without surgery instead on antibiotics, presented this time for continuing pain. Patient seen and examined. Reports pain in left leg Reports some right shoulder discomfort Chronic blurred vision Review of Systems Review of Systems: Other review of system negative except as above Physical Exam Constitutional: + well hydrated and + obese; no acute distress Eyes: PERRL, conjunctivae normal, anicteric sclerae ENMT: external ear and nose normal, oropharynx normal Respiratory: normal respiratory effort, lungs clear to auscultation Cardiovascular: Rate/Rhythm: regular rate and regular rhythm S1 S2 Gastrointestinal (Abdomen): normal bowel sounds, soft, nontender, no hepatosplenomegaly Musculoskeletal: Bilateral leg edema Clean dressing over left foot Neurologic: PERRL, EOMI, accommodation nl, no face palsy, no dysarthria Psychiatric: A+Ox3, euthymic affect Results & Data Results & Data ([facility]) Vital Signs (Past 12 Hours) Vital Signs Temp Pulse Pulse Resp BP Pulse Ox 12/30/20 07:30 36.5 C 68 18 115/73 95 12/30/20 07:17 61 12/30/20 04:00 36.7 C 63 16 116/73 96 12/30/20 02:13 67 12/29/20 23:54 36.8 C 66 18 134/79 97 Laboratory Results Abnormal lab results 12/29/20 12/29/20 12/30/20 Range/Units 16:26 18:01 01:19 RBC (4.7-6.1) M/uL Hgb (14.0-18.0) g/dL Hct (42-52) % MCHC (32-36) g/dL RDW Std Deviation (36.4-46.3) fL RDW Coeff of Мария (11.5-14.5) % INR (0.9-1.1) APTT 40.9 H 40.5 H (21.0-31.0) Seconds Potassium (3.5-5.1) mmol/L BUN (7-18) mg/dl Glucose (70-99) mg/dl POC Glucose 105 H (70-99) mg/dl 12/30/20 12/30/20 12/30/20 Range/Units 07:11 07:11 07:11 RBC 3.61 L (4.7-6.1) M/uL Hgb 9.7 L (14.0-18.0) g/dL Hct 31.1 L (42-52) % MCHC 31.2 L (32-36) g/dL RDW Std Deviation 53.3 H (36.4-46.3) fL RDW Coeff of Мария 16.8 H (11.5-14.5) % INR 1.2 H (0.9-1.1) APTT (21.0-31.0) Seconds Potassium 3.4 L (3.5-5.1) mmol/L BUN 21 H (7-18) mg/dl Glucose 126 H (70-99) mg/dl POC Glucose (70-99) mg/dl 12/30/20 Range/Units 07:11 RBC (4.7-6.1) M/uL Hgb (14.0-18.0) g/dL Hct (42-52) % MCHC (32-36) g/dL RDW Std Deviation (36.4-46.3) fL RDW Coeff of Мария (11.5-14.5) % INR (0.9-1.1) APTT 45.9 H* (21.0-31.0) Seconds Potassium (3.5-5.1) mmol/L BUN (7-18) mg/dl Glucose (70-99) mg/dl POC Glucose (70-99) mg/dl
[2020-12-30] MEDS ORDERED: POTASSIUM CHLORIDE CRTAB 20 MEQ TABCR PO STA (11:34)
[2020-12-30] MEDS: HEPARIN SODIUM/DEXTROSE 25,000 UNITS/500 ML BAG IV SCH ×2 (11:47→23:41)
[2020-12-30] MEDS: CLOBETASOL SCH ×2 (14:53→15:36)
[2020-12-30 19:05] LABS: Partial Thromboplastin Ratio 1.9
[2020-12-30 19:15] LABS: Partial Thromboplastin Time 49.2 Seconds (21.0-31.0)
[2020-12-31] MEDS: CLOBETASOL SCH ×3 (00:20→17:10)
[2020-12-31 01:45] LABS: INR 1.2 (0.9-1.1); Partial Thromboplastin Ratio 1.7; Partial Thromboplastin Time 44.1 Seconds (21.0-31.0); Prothrombin Time 11.7 Seconds (9.0-12.0)
[2020-12-31] MEDS: DAPTOmycin 650 MG in SYRINGE 0 ML IV SCH (01:50)
[2020-12-31] MEDS: HYDROmorphone INJ 0.5 MG/0.5 ML SYR IV PRN ×3 (05:35→19:47)
[2020-12-31 05:52] LABS: Basophils # (auto) 0.04 K/uL (0-0.2); Basophils % (auto) 0.4 %; Eosinophils # (auto) 0.65 K/uL (0-0.5); Eosinophils % (auto) 7.1 %; Hematocrit (blood only) 31.6 % (42-52); Hemoglobin 9.7 g/dL (14.0-18.0); Immature Granulocytes # (auto) 0.03 K/uL (0.00-0.02); Immature Granulocytes % (auto) 0.3 %; Lymphocytes # (auto) 1.25 K/uL (1.2-3.4); Lymphocytes % (auto) 13.7 %; Mean Corpuscular Hemoglobin 26.5 pg (25-34); Mean Corpuscular Hgb Conc 30.7 g/dL (32-36); Mean Corpuscular Volume 86.3 fL (80-100); Mean Platelet Volume 9.3 fL (7.4-10.4); Monocytes # (auto) 0.76 K/uL (0.11-0.59); Monocytes % (auto) 8.4 %; Neutrophils # (auto) 6.37 K/uL (1.4-6.5); Neutrophils % (auto) 70.1 %; Platelet Count 367 K/uL (130-400); RDW Coefficient of Variation 16.7 % (11.5-14.5); RDW Standard Deviation 53.1 fL (36.4-46.3); Red Blood Count 3.66 M/uL (4.7-6.1)
[2020-12-31] MEDS: LEVOTHYROXINE SODIUM 88 MCG TABLET PO SCH (06:19)
[2020-12-31] MEDS: PIPERACILLIN/TAZOBACTAM 4.5 GM in DEXTROSE 5% 100 ML IV SCH ×2 (06:19→15:12)
[2020-12-31 06:30] LABS: BUN Creatinine Ratio 14.3 (10-20); Calcium 8.7 mg/dl (8.5-10.1); Creatinine Clr Calc Pharmacy 92.7 ml/min; Est GFR (African American) 67.7 ml/min; Est GFR (Non-African American) 58.4 ml/min; Magnesium 1.9 mg/dl (1.8-2.4); Potassium 3.6 mmol/L (3.5-5.1)
[2020-12-31 07:32] LABS: Partial Thromboplastin Time 51.4 Seconds (21.0-31.0)
[2020-12-31] MEDS: NovoLOG INSULIN PUMP SCH ×4 (07:49→21:43)
[2020-12-31] MEDS: PANTOprazole 40 MG TAB PO SCH (07:50)
[2020-12-31] MEDS: TORSEMIDE 20 MG TAB PO SCH ×2 (07:50→17:09)
[2020-12-31] MEDS: MAGNESIUM OXIDE 400 MG TAB PO SCH (07:50)
[2020-12-31] MEDS: LORATADINE 10 MG TAB PO SCH (07:51)
[2020-12-31] MEDS: POTASSIUM CHLORIDE CRTAB 20 MEQ TABCR PO SCH (07:51)
[2020-12-31] MEDS: METOPROLOL SUCC 50MG EXT REL TAB PO SCH ×2 (07:51→21:42)
[2020-12-31] MEDS: ASPIRIN 81 MG ECTAB PO SCH (07:51)
[2020-12-31] MEDS: METOPROLOL SUCC 25MG EXT REL TAB PO SCH ×2 (07:51→21:42)
[2020-12-31] MEDS: GABAPENTIN 300 MG CAP PO SCH ×3 (07:52→21:40)
[2020-12-31] MEDS: SPIRONOLACTONE 25 MG TAB PO SCH (07:52)
[2020-12-31] MEDS: HYOSCYAMINE SULFATE 0.125 MG TAB PO SCH ×3 (07:52→21:40)
[2020-12-31] MEDS: FLUTICASONE/VILANTEROL 200/25MCG 14 PUFFS/INHALER INH SCH (07:53)
[2020-12-31] MEDS: DICLOFENAC SOD 1% GEL 100 GM TUBE EXT SCH ×2 (07:53→21:39)
[2020-12-31] MEDS: FLUTICASONE PROPIONATE NA SPR 16 GM BTL SCH ×2 (07:53→21:39)
[2020-12-31] MEDS: HYDROCODONE/ACETAMOPHEN 5/325MG TAB PO PRN ×2 (08:58→17:09)
[2020-12-31] MEDS: HEPARIN SODIUM/DEXTROSE 25,000 UNITS/500 ML BAG IV SCH ×4 (10:28→21:38)
--- NOTE | 2020-12-31 11:18 | Hospitalist Progress Note ---
Date of Service December 31, 2020 Assessment & Plan (1) Acute osteomyelitis of left foot: (2) Acute pain of left foot: (3) Diabetic infection of left foot: (4) Diabetic ulcer of left foot associated with type 2 diabetes mellitus, with fat layer exposed: Plan: Currently on daptomycin and Zosyn. Pain control Awaiting vascular surgery evaluation and plan for possible surgery. (5) T2DM (type 2 diabetes mellitus): Plan: Hemoglobin A1c is 8.1. Continue monitoring blood glucose on insulin sliding scale per protocol. Optimize control. Diet changed to carbohydrate controlled diet per request Diabetes education provided (6) Ischemic cardiomyopathy: (7) S/P ICD (internal cardiac defibrillator) procedure: (8) Chronic diastolic heart failure: Plan: Continue home diuretics [Aldactone, torsemide] Continue metoprolol succinate. (9) Atrial fibrillation: Plan: Rate controlled Coumadin on hold in view of possible procedure Currently on heparin drip (10) NINA on CPAP: Plan: CPAP at bedtime (11) CAD (coronary artery disease): Plan: Continue aspirin, statin (12) Morbid obesity: Plan: Need weight management postop. (13) DVT prophylaxis: Plan: Heparin drip as mentioned above Admission and Anticipated Discharge Date Admission Date: December 28, 2020 Subjective 55-year-old male with past medical history significant for chronic systolic and diastolic CHF, history of ischemic cardiomyopathy, CAD, history of SVT, AICD placement in 10/2019, paroxysmal atrial fibrillation, anticoagulation on Coumadin, history of DVT, hypertension, hyperlipidemia, chronic kidney disease stage III, baseline creatinine of 1.5-1.7, history of obstructive sleep apnea, on BiPAP, history of asthma, history of insulin-dependent type 2 diabetes, diabetic peripheral neuropathy, hypothyroidism, chronic left nonhealing diabetic foot ulcer with diagnosis of osteomyelitis on recent admission and amputation recommended but patient decided to go home without surgery instead on antibiotics, presented this time for continuing pain. Patient seen and examined. Reports pain in left leg is controlled, mild now, worse with activity Reports he does not want the diet ordered and will prefer only carbohydrate controlled diet. We discussed the need for dietary management of his cardiac and diabetic problems but he declined. Chronic blurred vision Review of Systems Review of Systems: Other review of system negative except as above Physical Exam Constitutional: + well hydrated and + obese; no acute distress Eyes: PERRL, conjunctivae normal, anicteric sclerae ENMT: external ear and nose normal, oropharynx normal Respiratory: normal respiratory effort, lungs clear to auscultation Cardiovascular: Rate/Rhythm: regular rate and regular rhythm S1 S2 Gastrointestinal (Abdomen): normal bowel sounds, soft, nontender, no hepatosplenomegaly Musculoskeletal: Bilateral leg edema Clean dressing over left foot wound Neurologic: PERRL, EOMI, accommodation nl, no face palsy, no dysarthria Psychiatric: A+Ox3, euthymic affect Results & Data Results & Data ([facility]) Vital Signs (Past 12 Hours) Vital Signs Temp Pulse Resp BP Pulse Ox 12/31/20 06:55 36.7 C 71 20 124/73 95 12/31/20 05:34 36.8 C 12/31/20 02:42 36.9 C 76 20 100/63 98 Laboratory Results Abnormal lab results 12/30/20 12/31/20 12/31/20 Range/Units 18:19 01:23 05:22 RBC 3.66 L (4.7-6.1) M/uL Hgb 9.7 L (14.0-18.0) g/dL Hct 31.6 L (42-52) % MCHC 30.7 L (32-36) g/dL RDW Std Deviation 53.1 H (36.4-46.3) fL RDW Coeff of Мария 16.7 H (11.5-14.5) % Ransom # (Auto) 0.76 H (0.11-0.59) K/uL Eos # (Auto) 0.65 H (0-0.5) K/uL Immature Gran # (Auto) 0.03 H (0.00-0.02) K/uL INR 1.2 H (0.9-1.1) APTT 49.2 H* 44.1 H (21.0-31.0) Seconds BUN (7-18) mg/dl Glucose (70-99) mg/dl 12/31/20 12/31/20 Range/Units 05:22 06:49 RBC (4.7-6.1) M/uL Hgb (14.0-18.0) g/dL Hct (42-52) % MCHC (32-36) g/dL RDW Std Deviation (36.4-46.3) fL RDW Coeff of Мария (11.5-14.5) % Ransom # (Auto) (0.11-0.59) K/uL Eos # (Auto) (0-0.5) K/uL Immature Gran # (Auto) (0.00-0.02) K/uL INR (0.9-1.1) APTT 51.4 H* (21.0-31.0) Seconds BUN 19 H (7-18) mg/dl Glucose 151 H (70-99) mg/dl
[2020-12-31] MEDS: ATORVASTATIN 40 MG TAB PO SCH (21:38)
[2021-01-01] MEDS: HYDROCODONE/ACETAMOPHEN 5/325MG TAB PO PRN ×3 (01:17→19:17)
[2021-01-01] MEDS: CLOBETASOL SCH ×3 (01:18→15:17)
[2021-01-01] MEDS: PIPERACILLIN/TAZOBACTAM 4.5 GM in DEXTROSE 5% 100 ML IV SCH ×3 (01:18→14:23)
[2021-01-01] MEDS: DAPTOmycin 650 MG in SYRINGE 0 ML IV SCH (01:20)
[2021-01-01] MEDS: LEVOTHYROXINE SODIUM 88 MCG TABLET PO SCH (06:05)
[2021-01-01] MEDS: HYDROmorphone INJ 0.5 MG/0.5 ML SYR IV PRN ×3 (06:10→20:57)
[2021-01-01 06:23] LABS: INR 1.2 (0.9-1.1)
[2021-01-01 06:48] LABS: BUN Creatinine Ratio 12.4 (10-20); Calcium 8.7 mg/dl (8.5-10.1); Creatinine Clr Calc Pharmacy 82.3 ml/min; Est GFR (African American) 58.6 ml/min; Est GFR (Non-African American) 50.5 ml/min; Potassium 3.3 mmol/L (3.5-5.1)
[2021-01-01 07:39] LABS: Partial Thromboplastin Ratio 1.5; Partial Thromboplastin Time 40.6 Seconds (21.0-31.0)
[2021-01-01] MEDS: HEPARIN SODIUM/DEXTROSE 25,000 UNITS/500 ML BAG IV SCH ×3 (07:50→16:55)
[2021-01-01] MEDS: NovoLOG INSULIN PUMP SCH ×4 (08:43→20:53)
[2021-01-01] MEDS: FLUTICASONE PROPIONATE NA SPR 16 GM BTL SCH ×2 (08:44→20:47)
[2021-01-01] MEDS: FLUTICASONE/VILANTEROL 200/25MCG 14 PUFFS/INHALER INH SCH (08:44)
[2021-01-01] MEDS: MAGNESIUM OXIDE 400 MG TAB PO SCH (08:45)
[2021-01-01] MEDS: GABAPENTIN 300 MG CAP PO SCH ×3 (08:45→20:47)
[2021-01-01] MEDS: TORSEMIDE 20 MG TAB PO SCH ×2 (08:45→16:52)
[2021-01-01] MEDS: SPIRONOLACTONE 25 MG TAB PO SCH (08:45)
[2021-01-01] MEDS: METOPROLOL SUCC 25MG EXT REL TAB PO SCH ×2 (08:45→20:48)
[2021-01-01] MEDS: POTASSIUM CHLORIDE CRTAB 20 MEQ TABCR PO SCH (08:45)
[2021-01-01] MEDS: METOPROLOL SUCC 50MG EXT REL TAB PO SCH ×2 (08:45→20:49)
[2021-01-01] MEDS: PANTOprazole 40 MG TAB PO SCH (08:45)
[2021-01-01] MEDS: HYOSCYAMINE SULFATE 0.125 MG TAB PO SCH ×3 (08:45→20:47)
[2021-01-01] MEDS: LORATADINE 10 MG TAB PO SCH (08:45)
[2021-01-01] MEDS: ASPIRIN 81 MG ECTAB PO SCH (08:45)
[2021-01-01] MEDS: DICLOFENAC SOD 1% GEL 100 GM TUBE EXT SCH ×2 (08:46→20:48)
[2021-01-01] MEDS ORDERED: ERGOCALCIFEROL 50,000 UNITS 1250 MCG CAP PO SCH (09:00)
--- NOTE | 2021-01-01 09:55 | Hospitalist Progress Note ---
Date of Service January 01, 2021 Assessment & Plan (1) Acute osteomyelitis of left foot: (2) Acute pain of left foot: (3) Diabetic infection of left foot: (4) Diabetic ulcer of left foot associated with type 2 diabetes mellitus, with fat layer exposed: Plan: Patient was recently hospitalized for same issues Ortho was planning surgery and patient declined and was discharged home on iv dapto. Returns this time and ready for surgery. Currently on dapto and zosyn started on admission. No signs of systemic illness at this time, will continue daptomycin and dc zosyn for now. I discussed with ortho team. Ortho discussed with Vascular and will defer possible surgery to vascular at this time. Ortho evaluation and recommendations noted Awaiting vascular evaluation (5) T2DM (type 2 diabetes mellitus): Plan: Hemoglobin A1c is 8.1. Continue monitoring blood glucose on insulin sliding scale per protocol. (6) Ischemic cardiomyopathy: (7) S/P ICD (internal cardiac defibrillator) procedure: (8) Chronic diastolic heart failure: Plan: Continue home diuretics [Aldactone, torsemide] Continue metoprolol succinate. (9) Atrial fibrillation: Plan: Rate controlled Coumadin on hold in view of possible procedure Currently on heparin drip which can be held prior to procedure (10) NINA on CPAP: Plan: CPAP at bedtime (11) CAD (coronary artery disease): Plan: Continue aspirin, statin (12) Morbid obesity: Plan: Need weight management postop. (13) DVT prophylaxis: Plan: Heparin drip as mentioned above Admission and Anticipated Discharge Date Admission Date: December 28, 2020 Subjective 55-year-old male with past medical history significant for chronic systolic and diastolic CHF, history of ischemic cardiomyopathy, CAD, history of SVT, AICD placement in 10/2019, paroxysmal atrial fibrillation, anticoagulation on Coumadin, history of DVT, hypertension, hyperlipidemia, chronic kidney disease stage III, baseline creatinine of 1.5-1.7, history of obstructive sleep apnea, on BiPAP, history of asthma, history of insulin-dependent type 2 diabetes, diabetic peripheral neuropathy, hypothyroidism, chronic left nonhealing diabetic foot ulcer with diagnosis of osteomyelitis on recent admission and amputation recommended but patient decided to go home without surgery instead on antibiotics, presented this time for continuing pain. Patient seen and examined. Complains of only pain in left leg States that pain is currently controlled Physical Exam Constitutional: + well hydrated and + obese; no acute distress Eyes: PERRL, conjunctivae normal, anicteric sclerae ENMT: external ear and nose normal, oropharynx normal Respiratory: normal respiratory effort, lungs clear to auscultation Cardiovascular: Rate/Rhythm: regular rate and regular rhythm S1 S2 Gastrointestinal (Abdomen): normal bowel sounds, soft, nontender, no hepatosplenomegaly Musculoskeletal: Bilateral leg edema Clean dressing over left foot wound Neurologic: PERRL, EOMI, accommodation nl, no face palsy, no dysarthria Psychiatric: A+Ox3, euthymic affect Results & Data Results & Data ([facility]) Vital Signs (Past 12 Hours) Vital Signs Temp Pulse Pulse Resp BP Pulse Ox 01/01/21 07:19 36.6 C 65 18 121/65 100 01/01/21 02:57 36.6 C 64 18 119/73 97 01/01/21 00:07 75 12/31/20 22:40 36.8 C 71 16 119/71 96 Laboratory Results Abnormal lab results 01/01/21 01/01/21 01/01/21 Range/Units 05:52 05:52 05:52 INR 1.2 H (0.9-1.1) APTT 40.6 H (21.0-31.0) Seconds Potassium 3.3 L (3.5-5.1) mmol/L BUN 19 H (7-18) mg/dl Creatinine 1.51 H (0.6-1.4) mg/dl Glucose 144 H (70-99) mg/dl 01/01/21 Range/Units 13:22 INR (0.9-1.1) APTT 52.2 H* (21.0-31.0) Seconds Potassium (3.5-5.1) mmol/L BUN (7-18) mg/dl Creatinine (0.6-1.4) mg/dl Glucose (70-99) mg/dl
--- NOTE | 2021-01-01 13:10 | Orthopedic Consultation ---
Date of Consultation January 01, 2021 Assessment & Plan (1) Osteomyelitis of left foot: Severe Charcot arthropathy with multifocal osteomyelitis left hindfoot/midfoot with midfoot dissociation I have spoken at length with Dr. Bates this morning. He feels that [id number] amputation would be the patient's best treatment at this point in time. He feels that a BKA would have further wound issues down the road with possibilities of revision amputations. At this time, Dr. Bates would not be performing the AKA. He feels that the patient will be better served by Dr. Gonzalez in this area. I have spoken to Nasrin Owens PA-C who works with Dr. Gonzalez. They had discussed that with their schedule, the soonest they could do his surgery, if that was going to be the plan, would be no sooner than next Thursday. I discussed with Dr. Bates who feels that the patient has had this ch ronic situation ongoing for some time now and would be okay to wait until that time. Dr. Gonzalez's team will check their surgery schedule and plan to see the patient tomorrow to discuss the surgical options. If for some reason, they would be unable to get to the patient within that timeframe, or if the patient is too high of a risk to be done here, the patient may need to be transferred to a tertiary facility such as [facility] for further care. I have discussed this with the patient who understands. I have answered his questions to the best of my ability. I discussed with the patient that if he had any further questions for me, that the nursing staff could contact me. Otherwise, I will defer any further questions to Dr. Gonzalez's team. History of Present Illness Reason for Consultation: Severe Charcot arthropathy with multifocal osteomyelitis left hindfoot/midfoot with midfoot dissociation. Attending Physician: Jeni Ewing MD History of Present Illness Patient is a 55-year-old male known to our practice with history of Charcot arthropathy with multifocal osteomyelitis of the left hindfoot and midfoot with midfoot disassociation. Patient was seen on his last hospital stay by Dr. Annabelle chan. The patient has had multiple irrigation debridement surgeries on his left foot this year by Dr. Bates and one done at [facility] in the recent past. Patient was seeing wound care team in [place] and states that he was progressing with a wound VAC over the main portion of his ulcer on the lateral left foot. It was noted by home health nurses who are taking care of his wound VAC that he began having increased drainage from the site prior to his last admission. The wound VAC was removed and he was sent to [facility]. MRI was ordered and was found that he had osteomyelitis as noted above as well as a midfoot disassociation. The patient was continued on dressing changes and IV antibiotics. Discussions for BKA versus AKA were had with the patient. No decisions were made. A duplex scan was ordered and showed no major arterial stenoses. Patient had been seen by Dr. Gonzalez's vascular team as well. Dr. Bates had seen the patient on the day prior to his discharge on 12/22/20. Dr. Bates explained with the patient's large amount of lower extremity edema as well as venous stasis changes and wound issues on the lower leg, that BKA may not be a possibility secondary to healing. He discussed with the patient that it was not a blood flow issue but rather a tissue quality issue. After speaking with the patient about possibilities the patient was then discharged from the hospital. He wanted to have time to think about his options. Patient returned to [facility] over the weekend. He is now more in agreement with amputation. We were consulted to discuss this further with the patient. Currently he is sitting up at the bedside awake and alert. No overt complaints. I discussed with him that I had been speaking with Dr. Bates this morning and what he felt was the best avenue for the patient for the situation. I discussed that he felt that [id number] amputation would be a better treatment strategy and have a greater chance at 1 time healing. He feels that if a BKA is done, that there could be the possibility of revision amputations and healing issues. The patient appears to understand and would l oanh to move forward with his options. Allergies Allergy/AdvReac Type Severity Reaction Status Date / Time benzonatate AdvReac Intermediate choking, Verified 12/28/20 21:19 gagging Home Medications Medication Instructions Recorded Confirmed Type fluticasone propionate 50 2 sprays INTNAS BID gm 12/21/17 12/28/20 History mcg/actuation nasal spray,suspension (Flonase Allergy Relief) magnesium oxide 400 mg PO QAM cap 12/21/17 12/28/20 History mometasone-formoterol HFA 200 2 puffs INH BID 12/21/17 12/28/20 History mcg-5 mcg/actuation aerosol inhaler (Dulera) nitroglycerin 0.4 mg sublingual 0.4 mg SL Q5M PRN 12/21/17 12/28/20 History tablet omeprazole 20 mg capsule,delayed 20 mg PO QAM 12/21/17 12/28/20 History release tramadol 50 mg tablet 50 mg PO Q6H PRN 12/21/17 12/28/20 History ergocalciferol (vitamin D2) 62.5 50,000 unit PO WK 04/12/19 12/28/20 History mcg (2,500 unit) capsule gabapentin 300 mg capsule 300 mg PO TID 04/12/19 12/28/20 History hyoscyamine sulfate 0.125 mg 0.125 mg PO TID 04/12/19 12/28/20 History tablet (Levsin) clobetasol 0.05 % topical cream 1 applic TOPICAL BID 01/18/20 12/28/20 History blood-glucose meter (OneTouch #1 ea 02/21/20 12/28/20 Rx Verio Flex meter) albuterol sulfate 90 mcg/actuation 2 puff INHALATION QID PRN 05/30/20 12/28/20 History aerosol inhaler (Ventolin HFA) aspirin 81 mg tablet,delayed 81 mg PO QAM 06/12/20 12/28/20 History release warfarin 1 mg tablet 3 mg PO SUTH 07/12/20 12/28/20 History ammonium lactate 5 % lotion 1 applic TOPICAL DAILY PRN 08/15/20 12/28/20 History (Lac-Hydrin Five) potassium chloride 20 mEq 20 meq PO DAILY #30 tab 08/23/20 12/28/20 Rx tablet,extended release insulin aspart U-100 100 unit/mL See Rx Instructions CONTINUOUS 11/01/20 12/28/20 Rx subcutaneous solution (Novolog SUBCUTANEOUS INFUSION DAILY #12 ml U-100 Insulin aspart) hydrocodone 5 mg-acetaminophen 325 1 tab PO Q6H PRN 12/13/20 12/28/20 History mg tablet levothyroxine 88 mcg tablet 88 mcg PO DAILY 12/13/20 12/28/20 History metoprolol succinate 25 mg 25 mg PO BID 12/13/20 12/28/20 History tablet,extended release 24 hr metoprolol succinate 50 mg 50 mg PO BID 12/13/20 12/28/20 History tablet,extended release 24 hr spironolactone 25 mg tablet 25 mg PO DAILY 12/13/20 12/28/20 History torsemide 20 mg tablet 20 mg PO BID 12/13/20 12/28/20 History warfarin 1 mg tablet 2 mg PO MOTUWEFRSA 12/13/20 12/28/20 History atorvastatin 80 mg tablet 80 mg PO HS #0 tab 12/21/20 12/28/20 Rx diclofenac sodium 1 % topical gel 4 g EXT BID 10 Days #50 g 12/21/20 12/28/20 Rx (Voltaren Arthritis Pain) Patient History Medical History Arthritis Asthma well controlled, daily fci 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 Bacteremia due to group B Streptococcus CAD (coronary artery disease) Cardiac defibrillator in situ 2007 with replacement 03/2020. follows with Dr. Maya. CHF (congestive heart failure) CKD (chronic kidney disease) stage 3, GFR 30-59 ml/min Deformity of foot Depression Diabetes type 2, uncontrolled Diabetic peripheral neuropathy associated with type 2 diabetes mellitus Dyslipidemia GERD (gastroesophageal reflux disease) H/O osteomyelitis History of diabetic ulcer of foot Hx of myocardial infarction found on testing Hx of osteomyelitis Hx of sepsis 06/2019 Hypertension Hypokalemia Hypothyroidism Ischemic cardiomyopathy Adams fracture Base of left fifth metatarsal, nonhealing x years Lymphedema Morbid obesity Peripheral arterial disease Rectal bleeding Sleep apnea BIPAP Sustained VT (ventricular tachycardia) T2DM (type 2 diabetes mellitus) Venous stasis ulcer of right lower leg with edema of right lower leg Vitamin D deficiency Surgical History H/O cardiac radiofrequency ablation OCTOBER 2019 ([facility]) AT [facility] H/O foot surgery LEFT FOOT ULCER DEBRIDEMENT H/O shoulder surgery left History of cardiac cath V. tach -- no stent. 06/2019. unsure where it was done History of colonoscopy History of esophagogastroduodenoscopy (EGD) History of sinus surgery Hx of amputation of lesser toe Hx of tonsillectomy Family History Sister Family history of diabetes mellitus 2 Grandmother (Maternal) Family history of diabetes mellitus Grandfather (Maternal) Family history of diabetes mellitus Father Cancer Mother Cancer Other No family history of adverse response to anesthesia Social History Smoking Status: Never smoker Second Hand Exposure: No; Do You Dip or Chew Tobacco: No; Hx Alcohol Use: No Hx Substance Use: No Preferred Language: [place] Communication Ability: Effective Dat Instructor Required: No Beliefs That Will Affect Care: None marital status: Current Living Situation: Alone current occupational status: disabled How many Children do You have: 3 Feels Safe at Home: Yes Safety Concerns: Feels Safe At This Time Assistive Devices: None Physical Exam Physical Exam: Dressing was left intact on the left foot. Continues to have lower extremity edema although it appears he has some slight improvement of the area just above below the knee. Venous stasis changes remain the same. The wound that was horizontally across his mid lower extremity appears to be slowly healing. Multiple wounds covered with Optifoam on the left lower extremity. Per wound care nursing, photos show the large open ulceration on the left lateral foot with bony prominences showing. Mild maceration around the edges with some erythema noted. Results & Data ([facility]) Vital Signs (Past 12 Hours) Vital Signs Temp Pulse Pulse Resp BP Pulse Ox 01/01/21 13:02 69 01/01/21 11:33 36.9 C 69 18 118/69 97 01/01/21 07:19 36.6 C 65 18 121/65 100 01/01/21 02:57 36.6 C 64 18 119/73 97
[2021-01-01 13:58] LABS: Partial Thromboplastin Time 52.2 Seconds (21.0-31.0)
[2021-01-01] MEDS ORDERED: POTASSIUM CHLORIDE CRTAB 20 MEQ TABCR PO STA (15:04)
[2021-01-01] MEDS: ATORVASTATIN 40 MG TAB PO SCH (20:49)
[2021-01-02] MEDS: CLOBETASOL SCH ×3 (01:05→15:29)
[2021-01-02] MEDS: HYDROCODONE/ACETAMOPHEN 5/325MG TAB PO PRN ×3 (01:25→22:51)
[2021-01-02] MEDS: DAPTOmycin 650 MG in SYRINGE 0 ML IV SCH (01:25)
[2021-01-02] MEDS: HEPARIN SODIUM/DEXTROSE 25,000 UNITS/500 ML BAG IV SCH ×2 (02:50→13:12)
[2021-01-02] MEDS: HYDROmorphone INJ 0.5 MG/0.5 ML SYR IV PRN ×3 (05:38→17:50)
[2021-01-02] MEDS: LEVOTHYROXINE SODIUM 88 MCG TABLET PO SCH (05:38)
[2021-01-02 06:02] LABS: Hematocrit (blood only) 33.5 % (42-52); Hemoglobin 10.3 g/dL (14.0-18.0); Mean Corpuscular Hemoglobin 26.5 pg (25-34); Mean Corpuscular Hgb Conc 30.7 g/dL (32-36); Mean Corpuscular Volume 86.1 fL (80-100); Mean Platelet Volume 9.5 fL (7.4-10.4); Platelet Count 382 K/uL (130-400); RDW Coefficient of Variation 17.1 % (11.5-14.5); RDW Standard Deviation 53.1 fL (36.4-46.3); Red Blood Count 3.89 M/uL (4.7-6.1); White Blood Count 8.25 K/uL (4.8-10.8)
[2021-01-02 06:23] LABS: INR 1.2 (0.9-1.1); Partial Thromboplastin Ratio 2.2; Prothrombin Time 11.9 Seconds (9.0-12.0)
[2021-01-02 06:25] LABS: Partial Thromboplastin Time 58.1 Seconds (21.0-31.0)
[2021-01-02 06:27] LABS: BUN Creatinine Ratio 12.2 (10-20); Calcium 8.9 mg/dl (8.5-10.1); Creatinine Clr Calc Pharmacy 82.3 ml/min; Est GFR (African American) 58.6 ml/min; Est GFR (Non-African American) 50.5 ml/min; Potassium 4.3 mmol/L (3.5-5.1)
[2021-01-02] MEDS: LORATADINE 10 MG TAB PO SCH (07:27)
[2021-01-02] MEDS: TORSEMIDE 20 MG TAB PO SCH ×2 (07:27→16:55)
[2021-01-02] MEDS: ASPIRIN 81 MG ECTAB PO SCH (07:27)
[2021-01-02] MEDS: POTASSIUM CHLORIDE CRTAB 20 MEQ TABCR PO SCH (07:27)
[2021-01-02] MEDS: SPIRONOLACTONE 25 MG TAB PO SCH (07:27)
[2021-01-02] MEDS: METOPROLOL SUCC 50MG EXT REL TAB PO SCH ×2 (07:27→20:16)
[2021-01-02] MEDS: MAGNESIUM OXIDE 400 MG TAB PO SCH (07:27)
[2021-01-02] MEDS: FLUTICASONE/VILANTEROL 200/25MCG 14 PUFFS/INHALER INH SCH (07:28)
[2021-01-02] MEDS: GABAPENTIN 300 MG CAP PO SCH ×3 (07:28→20:16)
[2021-01-02] MEDS: HYOSCYAMINE SULFATE 0.125 MG TAB PO SCH ×3 (07:28→20:17)
[2021-01-02] MEDS: METOPROLOL SUCC 25MG EXT REL TAB PO SCH ×2 (07:28→20:16)
[2021-01-02] MEDS: FLUTICASONE PROPIONATE NA SPR 16 GM BTL SCH ×2 (07:28→20:17)
[2021-01-02] MEDS: PANTOprazole 40 MG TAB PO SCH (07:28)
[2021-01-02] MEDS: DICLOFENAC SOD 1% GEL 100 GM TUBE EXT SCH ×2 (07:29→20:17)
[2021-01-02] MEDS: NovoLOG INSULIN PUMP SCH ×4 (08:34→21:23)
--- NOTE | 2021-01-02 14:25 | Pharmacy Report ---
Pharmacy Glycemic Short Note 2 - Date of Service January 02, 2021 - Glycemic Short BSG Results (Last 24 hours): 01/01/21 01/02/21 16:27 05:30 Glucose 219 H POC Glucose 218 H OUTPATIENT ANTIDIABETIC REGIMEN: * Insulin pump (Novolog) - 2 units/hr as basal plus CF 20 CR 4 * HbA1c: 8.5% (12/14/20) ASSESSMENT: 01/02 * BSGs trending up over past 24 hours with multiple readings in 200s * BSGs not being obtained with our meter and thus not showing up in [employer], patient agreeable to checks with our meter * Discussed with nurses educator, basal rate increased by ~10% to 2.2 units/hr given upward BSG trend and elevated outpatient BSGs * Patient scheduled for left suqjf-uje-lala-amputation next week * May need to potentially adjust rate again if/when NPO for surgery Background: * Mr Lyle is a 55 y/o M with a PMH of T2DM controlled on insulin pump who presents for amputation. * Pharmacy consulted. Patient currently on insulin pump. Historically does well while on pump inhouse. Continue for now PLAN FOR INPATIENT GLYCEMIC CONTROL: Pt is to manage BSGs with insulin pump per outpatient settings. * RN will have patient read and sign agreement CF 006 Insulin Pump Therapy Patient Agreement. * RN will provide and explain form NS-824 Flowsheet for Patient * Patient will document their insulin dose given on NS-824 which is kept at the bedside, available to caregivers upon request, and which becomes part of the permanent medical record. * Basal rate increased today to 2.2 unit/hr If at any time the patients condition evidences that he/she is not able to manage the insulin pump (i.e. frequent hypo/hyperglycemia) Pharmacy will assume glycemic control by discontinuing the pump & managing with SQ basal bolus insulin regimen for the interim. PLAN FOR DISCHARGE: * HbA1c of 8.5% is elevated - goal HbA1c should be less than 7% * Basal rate increased to 2.2 unit/hr while inpatient, should continue this at time of discharge * Ensure prompt outpatient follow-up with managing provider for further insulin pump adjustments
--- NOTE | 2021-01-02 14:30 | Consultation ---
Date of Consultation January 02, 2021 Assessment & Plan (1) Osteomyelitis of left foot: Pt with extensive osteomyelitis of L foot. Pt also seen by Dr Gonzalez today. AKA recommended d/t significant skin changes from venous insufficiency below the knee which would compromise healing of a BKA. Ortho not comfortable performing AKA d/t comorbidities. Will obtain anesthesia consult to determine whether pt would be better served at tertiary care center. Procedure discussed with pt, he is agreeable. Planning on MONDAY 01/08. Patient was seen, examined, and chart reviewed. Agree with exam and treatment plan of the Vascular PA. History of Present Illness Reason for Consultation: osteomyelitis Attending Physician: Tommy Allen MD History of Present Illness 55yo m with hx of CAD, AICD, DMII, HTN, PAD, NINA, CHF, v tach, ischemic cardiomyopathy, a fib, CKD, hypothyroidism, admitted with osteomyelitis in ronic Left foot wound, seen in consultation to sofia for AKA. Pt states he understands why it is recommended and he is ready to proceed with amputation. Admits fatigue and pain in L foot. Denies CURRY, fever, chest pain, SOB, abd pain, N/V, other complaints. Also has chronic wounds in R foot. Imaging demonstrates extensive body destruction of L fore and mid foot. Allergies Allergy/AdvReac Type Severity Reaction Status Date / Time benzonatate AdvReac Intermediate choking, Verified 12/28/20 21:19 gagging Home Medications Medication Instructions Recorded Confirmed Type fluticasone propionate 50 2 sprays INTNAS BID gm 12/21/17 12/28/20 History mcg/actuation nasal spray,suspension (Flonase Allergy Relief) magnesium oxide 400 mg PO QAM cap 12/21/17 12/28/20 History mometasone-formoterol HFA 200 2 puffs INH BID 12/21/17 12/28/20 History mcg-5 mcg/actuation aerosol inhaler (Dulera) nitroglycerin 0.4 mg sublingual 0.4 mg SL Q5M PRN 12/21/17 12/28/20 History tablet omeprazole 20 mg capsule,delayed 20 mg PO QAM 12/21/17 12/28/20 History release tramadol 50 mg tablet 50 mg PO Q6H PRN 12/21/17 12/28/20 History ergocalciferol (vitamin D2) 62.5 50,000 unit PO WK 04/12/19 12/28/20 History mcg (2,500 unit) capsule gabapentin 300 mg capsule 300 mg PO TID 04/12/19 12/28/20 History hyoscyamine sulfate 0.125 mg 0.125 mg PO TID 04/12/19 12/28/20 History tablet (Levsin) clobetasol 0.05 % topical cream 1 applic TOPICAL BID 01/18/20 12/28/20 History blood-glucose meter (OneTouch #1 ea 02/21/20 12/28/20 Rx Verio Flex meter) albuterol sulfate 90 mcg/actuation 2 puff INHALATION QID PRN 05/30/20 12/28/20 History aerosol inhaler (Ventolin HFA) aspirin 81 mg tablet,delayed 81 mg PO QAM 06/12/20 12/28/20 History release warfarin 1 mg tablet 3 mg PO SUTH 07/12/20 12/28/20 History ammonium lactate 5 % lotion 1 applic TOPICAL DAILY PRN 08/15/20 12/28/20 History (Lac-Hydrin Five) potassium chloride 20 mEq 20 meq PO DAILY #30 tab 08/23/20 12/28/20 Rx tablet,extended release insulin aspart U-100 100 unit/mL See Rx Instructions CONTINUOUS 11/01/20 12/28/20 Rx subcutaneous solution (Novolog SUBCUTANEOUS INFUSION DAILY #12 ml U-100 Insulin aspart) hydrocodone 5 mg-acetaminophen 325 1 tab PO Q6H PRN 12/13/20 12/28/20 History mg tablet levothyroxine 88 mcg tablet 88 mcg PO DAILY 12/13/20 12/28/20 History metoprolol succinate 25 mg 25 mg PO BID 12/13/20 12/28/20 History tablet,extended release 24 hr metoprolol succinate 50 mg 50 mg PO BID 12/13/20 12/28/20 History tablet,extended release 24 hr spironolactone 25 mg tablet 25 mg PO DAILY 12/13/20 12/28/20 History torsemide 20 mg tablet 20 mg PO BID 12/13/20 12/28/20 History warfarin 1 mg tablet 2 mg PO MOTUWEFRSA 12/13/20 12/28/20 History atorvastatin 80 mg tablet 80 mg PO HS #0 tab 12/21/20 12/28/20 Rx diclofenac sodium 1 % topical gel 4 g EXT BID 10 Days #50 g 12/21/20 12/28/20 Rx (Voltaren Arthritis Pain) Patient History Medical History Arthritis Asthma well controlled, daily usp 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 Bacteremia due to group B Streptococcus CAD (coronary artery disease) Cardiac defibrillator in situ 2007 with replacement 03/2020. follows with Dr. Maya. CHF (congestive heart failure) CKD (chronic kidney disease) stage 3, GFR 30-59 ml/min Deformity of foot Depression Diabetes type 2, uncontrolled Diabetic peripheral neuropathy associated with type 2 diabetes mellitus Dyslipidemia GERD (gastroesophageal reflux disease) H/O osteomyelitis History of diabetic ulcer of foot Hx of myocardial infarction found on testing Hx of osteomyelitis Hx of sepsis 06/2019 Hypertension Hypokalemia Hypothyroidism Ischemic cardiomyopathy Adams fracture Base of left fifth metatarsal, nonhealing x years Lymphedema Morbid obesity Peripheral arterial disease Rectal bleeding Sleep apnea BIPAP Sustained VT (ventricular tachycardia) T2DM (type 2 diabetes mellitus) Venous stasis ulcer of right lower leg with edema of right lower leg Vitamin D deficiency Surgical History H/O cardiac radiofrequency ablation OCTOBER 2019 ([facility]) AT [facility] H/O foot surgery LEFT FOOT ULCER DEBRIDEMENT H/O shoulder surgery left History of cardiac cath V. tach -- no stent. 06/2019. unsure where it was done History of colonoscopy History of esophagogastroduodenoscopy (EGD) History of sinus surgery Hx of amputation of lesser toe Hx of tonsillectomy Family History Sister Family history of diabetes mellitus 2 Grandmother (Maternal) Family history of diabetes mellitus Grandfather (Maternal) Family history of diabetes mellitus Father Cancer Mother Cancer Other No family history of adverse response to anesthesia Social History Smoking Status: Never smoker Second Hand Exposure: No; Do You Dip or Chew Tobacco: No; Hx Alcohol Use: No Hx Substance Use: No Preferred Language: Armenian Communication Ability: Effective Carroter Required: No Beliefs That Will Affect Care: None marital status: Current Living Situation: Alone current occupational status: disabled How many Children do You have: 3 Feels Safe at Home: Yes Safety Concerns: Feels Safe At This Time Assistive Devices: Glasses Review of Systems Review of Systems: 14 systems reviewed and negative aside from HPI Physical Exam Physical Exam: Constitutional: + morbidly obese, cooperative and comfortable; not in distress ENMT: Ears: no hearing impairment Neck: trachea midline Respiratory: normal respiratory effort, lungs clear to auscultation Auscultation: + diminished lung sounds Cardiovascular: Rate/Rhythm: + irregularly irregular Vessels: femoral pulses present and radial pulses present; + abnormal peripheral pulses Extremities: normal capillary refill, + pedal edema and + edema (+4 pitting) Gastrointestinal (Abdomen): Inspection/Auscultation: abdomen normal to inspection and normal bowel sounds Percussion/Palpation: abdomen soft; abdomen nontender Musculoskeletal: Extremities: + chronic stasis changes Skin: + ulcer, + wound (L foot dressing intact), + crusts, + erythema, + excoriations and + lichenification Neurologic: moves all extremities; no focal motor deficits and not confused Psychiatric: Orientation: alert and oriented x 3 Affect: + depressed affect Results & Data ([facility]) Vital Signs (Past 12 Hours) Vital Signs Temp Pulse Resp BP Pulse Ox 01/02/21 11:41 36.8 C 67 18 133/77 96 01/02/21 07:30 37.0 C 72 18 142/81 H 96 01/02/21 03:00 36.3 C L 68 20 110/73 99
--- NOTE | 2021-01-02 15:23 | Hospitalist Progress Note ---
Date of Service January 02, 2021 Assessment & Plan (1) Acute osteomyelitis of left foot: (2) Acute pain of left foot: (3) Diabetic infection of left foot: (4) Diabetic ulcer of left foot associated with type 2 diabetes mellitus, with fat layer exposed: Plan: Acute Osteomyelitis Severe Charcot arthropathy with multifocal osteomyelitis left hindfoot/midfoot with midfoot dissociation --Foot MRI 12/14/20:Large plantar ulcer of the lateral midfoot forefoot junction with extensive cellulitis. Deep tissue gas is likely secondary to direct extension from the wound. Gas forming organism could appear similarly. No drainable abscess. Extensive osteomyelitis throughout the forefoot and midfoot as above with articular and bony destruction resulting in dorsal dislocation of the forefoot. 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 Associated changes of Charcot neuropathy may also be present. These findings are new from 08/01/2020. --Arterial Doppler 12/17/20:No evidence for arterial occlusion within the left lower extremity. Monophasic waveforms seen within the left superficial femoral, popliteal, and calf arteries suggestive of diffuse atherosclerotic disease. However, no elevated velocities to suggest stenosis at this time. -Patient was hospitalized for same issue previously--patient declined surgery at the time and was discharged home on IV daptomycin -Wound culture from Dec 13 growing-100 bacterium, Camila albicans/dubliniensis -Blood Cx: Negative to Date -Continue Daptomycin -Appreciate Orthopedics/Vascular Surgery Input -Will need AKA -Pain control, wound care (5) T2DM (type 2 diabetes mellitus): Plan: Hemoglobin A1c is 8.1. Continue Insulin therapy Monitor BGs Appreciate glycemic Pharmacist help (6) Ischemic cardiomyopathy: (7) S/P ICD (internal cardiac defibrillator) procedure: (8) Chronic diastolic heart failure: Plan: Continue home diuretics-Aldactone, torsemide Continue metoprolol succinate (9) Atrial fibrillation: Plan: Rate controlled Continue Metoprolol Coumadin on hold as planned for surgery Continue IV heparin for now (10) NINA on CPAP: Plan: CPAP at bedtime (11) CAD (coronary artery disease): Plan: Continue aspirin, statin (12) Morbid obesity: Plan: BMI: 45 (13) DVT prophylaxis: Plan: Heparin drip Code Status Full Code Admission and Anticipated Discharge Date Admission Date: December 28, 2020 Subjective Patient is seen and examined at bedside States having left heel pain Otherwise feels well Denies chest pain, dyspnea, dizziness, nausea, abdominal pain Review of Systems Review of Systems: All systems reviewed & are unremarkable except as noted in Subjective Physical Exam Physical Exam: Physical Exam: Vitals signs as noted above General Appearance:Morbidly Obese, no apparent distress Head: normocephalic, Atraumatic Eyes: normal inspection, EOMI Neck: supple, Trachea midline Respiratory/Chest: Normal breath sounds, CTA Cardiovascular: S1, S2, No murmur Abdomen/GI:Soft, Non tender, Bowel sounds present Extremities/Musculoskeletal:normal inspection, B/L LE edema, +Venous stasis changes, +B/L feet in dressing Neurologic/Psych:AAOX3, grossly no focal neurological deficits Skin: normal color, warm Results & Data Results & Data ([facility]) Vital Signs (Past 12 Hours) Vital Signs Temp Pulse Resp BP Pulse Ox 01/02/21 11:41 36.8 C 67 18 133/77 96 01/02/21 07:30 37.0 C 72 18 142/81 H 96 Laboratory Results Short CBC 01/02/21 Range/Units 05:30 WBC 8.25 (4.8-10.8) K/uL Hgb 10.3 L (14.0-18.0) g/dL Hct 33.5 L (42-52) % Plt Count 382 (130-400) K/uL BMP 01/02/21 05:30 Sodium 136 Potassium 4.3 D Chloride 105 Carbon Dioxide 26 BUN 18 Creatinine 1.51 H Glucose 219 H Calcium 8.9
--- NOTE | 2021-01-02 16:20 | Anesthesiology Progress Note ---
Date of Service January 02, 2021 Assessment & Plan (1) Encounter for pre-operative examination: Plan: Spent a considerable amount of time reviewing patient's medical history along with labs and imaging studies. This case was also discussed with several additional anesthesia attendings. As is already known, this patient has a very complex and serious set of comorbid health conditions. Given that he is a high risk patient undergoing what appears to be a high risk vascular surgery that may necessitate a large blood product resuscitation, there is considerable risk both in the intraoperative and postoperative period. It is felt that this patient would likely benefit from having this procedure done at a tertiary care facility. If this is not able to be arranged, patient should at least have a repeat echo done (last one was in July 2020) given his history of depressed EF/heart failure and would need to ensure he has adequate blood products available. Please contact our service for any questions/concerns. Admission and Anticipated Discharge Date Admission Date: December 28, 2020 Subjective Asked to review patient's chart and comment upon whether or not patient should have AKA performed at [facility] vs tertiary care center. Physical Exam Vital Signs: Last Vital Signs Temp 36.8 C 01/02/21 11:41 Pulse 67 01/02/21 11:41 Resp 18 01/02/21 11:41 BP 133/77 01/02/21 11:41 Pulse Ox 96 01/02/21 11:41
[2021-01-02] MEDS: ATORVASTATIN 40 MG TAB PO SCH (20:16)
[2021-01-02] MEDS ORDERED: LORazepam 0.5 MG TAB PO PRN (23:06)
[2021-01-03] MEDS: CLOBETASOL SCH ×3 (00:05→13:21)
[2021-01-03] MEDS: HEPARIN SODIUM/DEXTROSE 25,000 UNITS/500 ML BAG IV SCH ×3 (01:00→22:39)
[2021-01-03] MEDS: DAPTOmycin 650 MG in SYRINGE 0 ML IV SCH (01:50)
[2021-01-03] MEDS: HYDROmorphone INJ 0.5 MG/0.5 ML SYR IV PRN ×3 (03:35→22:24)
[2021-01-03] MEDS: LEVOTHYROXINE SODIUM 88 MCG TABLET PO SCH (05:46)
[2021-01-03] MEDS: METOPROLOL SUCC 50MG EXT REL TAB PO SCH ×2 (07:40→20:52)
[2021-01-03] MEDS: SPIRONOLACTONE 25 MG TAB PO SCH (07:41)
[2021-01-03] MEDS: GABAPENTIN 300 MG CAP PO SCH ×3 (07:41→20:53)
[2021-01-03] MEDS: MAGNESIUM OXIDE 400 MG TAB PO SCH (07:41)
[2021-01-03] MEDS: POTASSIUM CHLORIDE CRTAB 20 MEQ TABCR PO SCH (07:41)
[2021-01-03] MEDS: HYOSCYAMINE SULFATE 0.125 MG TAB PO SCH ×3 (07:41→20:54)
[2021-01-03] MEDS: LORATADINE 10 MG TAB PO SCH (07:42)
[2021-01-03] MEDS: TORSEMIDE 20 MG TAB PO SCH ×2 (07:42→17:15)
[2021-01-03] MEDS: PANTOprazole 40 MG TAB PO SCH (07:42)
[2021-01-03] MEDS: ASPIRIN 81 MG ECTAB PO SCH (07:42)
[2021-01-03] MEDS: FLUTICASONE PROPIONATE NA SPR 16 GM BTL SCH ×2 (07:43→20:55)
[2021-01-03] MEDS: DICLOFENAC SOD 1% GEL 100 GM TUBE EXT SCH ×2 (07:43→20:51)
[2021-01-03] MEDS: FLUTICASONE/VILANTEROL 200/25MCG 14 PUFFS/INHALER INH SCH (07:43)
[2021-01-03 07:45] LABS: Hematocrit (blood only) 33.5 % (42-52); Hemoglobin 10.3 g/dL (14.0-18.0); Mean Corpuscular Hemoglobin 26.5 pg (25-34); Mean Corpuscular Hgb Conc 30.7 g/dL (32-36); Mean Corpuscular Volume 86.1 fL (80-100); Mean Platelet Volume 9.2 fL (7.4-10.4); Platelet Count 397 K/uL (130-400); RDW Standard Deviation 53.4 fL (36.4-46.3); Red Blood Count 3.89 M/uL (4.7-6.1); White Blood Count 9.17 K/uL (4.8-10.8)
[2021-01-03] MEDS: HYDROCODONE/ACETAMOPHEN 5/325MG TAB PO PRN ×2 (07:49→19:15)
[2021-01-03] MEDS: NovoLOG INSULIN PUMP SCH ×4 (08:01→21:01)
[2021-01-03 08:08] LABS: Partial Thromboplastin Ratio 1.8
[2021-01-03 08:21] LABS: Partial Thromboplastin Time 46.9 Seconds (21.0-31.0)
[2021-01-03 08:25] LABS: BUN Creatinine Ratio 15.3 (10-20); Calcium 8.9 mg/dl (8.5-10.1); Creatinine Clr Calc Pharmacy 80.8 ml/min; Est GFR (African American) 58.1 ml/min; Est GFR (Non-African American) 50.1 ml/min; Potassium 3.8 mmol/L (3.5-5.1)
[2021-01-03] MEDS: METOPROLOL SUCC 25MG EXT REL TAB PO SCH ×2 (09:14→20:53)
--- NOTE | 2021-01-03 10:06 | Pharmacy Report ---
Pharmacy Glycemic Short Note 2 - Date of Service January 03, 2021 - Glycemic Short BSG Results (Last 24 hours): 01/02/21 01/02/21 01/03/21 16:38 20:16 07:22 Glucose 131 H POC Glucose 99 153 H 01/03/21 07:31 Glucose POC Glucose 149 H OUTPATIENT ANTIDIABETIC REGIMEN: * Insulin pump (Novolog) - 2 units/hr as basal plus CF 20 CR 4 * HbA1c: 8.5% (12/14/20) ASSESSMENT: 01/03 * BSGs well controlled over the past 24 hrs with increase in basal insulin rate on pump * BSGs [id number] mg/dl * Still awaiting possible surgery next week. Goal is to maintain BSGs <180 mg/dl (ideally <150 mg/dl) to prevent post-op infectious complications. 01/02 * BSGs trending up over past 24 hours with multiple readings in 200s * BSGs not being obtained with our meter and thus not showing up in [employer], patient agreeable to checks with our meter * Discussed with natural resources extension educator, basal rate increased by ~10% to 2.2 units/hr given upward BSG trend and elevated outpatient BSGs * Patient scheduled for left nggat-nqf-kixh-amputation next week * May need to potentially adjust rate again if/when NPO for surgery Background: * Mr Lyle is a 55 y/o M with a PMH of T2DM controlled on insulin pump who presents for amputation. * Pharmacy consulted. Patient currently on insulin pump. Historically does well while on pump inhouse. Continue for now PLAN FOR INPATIENT GLYCEMIC CONTROL: Pt is to manage BSGs with insulin pump per outpatient settings. * RN will have patient read and sign agreement CF 006 Insulin Pump Therapy Patient Agreement. * RN will provide and explain form NS-824 Flowsheet for Patient * Patient will document their insulin dose given on NS-824 which is kept at the bedside, available to caregivers upon request, and which becomes part of the permanent medical record. * Basal rate increased today to 2.2 unit/hr If at any time the patients condition evidences that he/she is not able to manage the insulin pump (i.e. frequent hypo/hyperglycemia) Pharmacy will assume glycemic control by discontinuing the pump & managing with SQ basal bolus insulin regimen for the interim. PLAN FOR DISCHARGE: * HbA1c of 8.5% is elevated - goal HbA1c should be less than 7% * Basal rate increased to 2.2 unit/hr while inpatient, should continue this at time of discharge * Ensure prompt outpatient follow-up with managing provider for further insulin pump adjustments
[2021-01-03] MEDS ORDERED: bisacodyL 10 MG SUPP PR PRN (12:30)
--- NOTE | 2021-01-03 12:40 | Hospitalist Progress Note ---
Date of Service January 03, 2021 Assessment & Plan (1) Acute osteomyelitis of left foot: (2) Acute pain of left foot: (3) Diabetic infection of left foot: (4) Diabetic ulcer of left foot associated with type 2 diabetes mellitus, with fat layer exposed: Plan: Acute Osteomyelitis Severe Charcot arthropathy with multifocal osteomyelitis left hindfoot/midfoot with midfoot dissociation --Foot MRI 12/14/20:Large plantar ulcer of the lateral midfoot forefoot junction with extensive cellulitis. Deep tissue gas is likely secondary to direct extension from the wound. Gas forming organism could appear similarly. No drainable abscess. Extensive osteomyelitis throughout the forefoot and midfoot as above with articular and bony destruction resulting in dorsal dislocation of the forefoot. 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 Associated changes of Charcot neuropathy may also be present. These findings are new from 08/01/2020. --Arterial Doppler 12/17/20:No evidence for arterial occlusion within the left lower extremity. Monophasic waveforms seen within the left superficial femoral, popliteal, and calf arteries suggestive of diffuse atherosclerotic disease. However, no elevated velocities to suggest stenosis at this time. -Patient was hospitalized for same issue previously--patient declined surgery at the time and was discharged home on IV daptomycin -Wound culture from Dec 13 growing-100 bacterium, Camila albicans/dubliniensis -Blood Cx: Negative to Date -Continue Daptomycin -Appreciate Orthopedics/Vascular Surgery Input -Will need AKA -Pain control, wound care -Given high risk for surgery with multiple comorbidities, vascular surgery rec ommended transfer to tertiary care facility for surgery Patient agreeable to be transferred to [facility] if accepted Depression Anxiety Previously followed with psychiatry as outpatient Denies any suicidal ideation We will consult psychiatry for further input Constipation Started on bowel regimen (5) T2DM (type 2 diabetes mellitus): Plan: Hemoglobin A1c is 8.1. Continue Insulin therapy Monitor BGs Appreciate glycemic Pharmacist help (6) Ischemic cardiomyopathy: (7) S/P ICD (internal cardiac defibrillator) procedure: (8) Chronic diastolic heart failure: Plan: Continue home diuretics-Aldactone, torsemide Continue metoprolol succinate (9) Atrial fibrillation: Plan: Rate controlled Continue Metoprolol Coumadin on hold as planned for surgery Continue IV heparin for now (10) NINA on CPAP: Plan: CPAP at bedtime (11) CAD (coronary artery disease): Plan: Continue aspirin, statin (12) Morbid obesity: Plan: BMI: 45 (13) DVT prophylaxis: Plan: Heparin drip Code Status Full Code Disposition Plan to transfer to [facility] if accepted will review with Orthopedics and inform if willing to accept. Admission and Anticipated Discharge Date Admission Date: December 28, 2020 Subjective Patient is seen and examined at bedside Persistent left heel pain States feeling depressed Reports constipation Discussed with vascular surgery today Patient agrees to transfer to [facility] if accepted Denies chest pain, dyspnea, dizziness, nausea, abdominal pain Review of Systems Review of Systems: All systems reviewed & are unremarkable except as noted in Subjective Physical Exam Physical Exam: Physical Exam: Vitals signs as noted above General Appearance:Morbidly Obese, no apparent distress Head: normocephalic, Atraumatic Eyes: normal inspection, EOMI Neck: supple, Trachea midline Respiratory/Chest: Normal breath sounds, CTA Cardiovascular: S1, S2, No murmur Abdomen/GI:Soft, Non tender, Bowel sounds present Extremities/Musculoskeletal:normal inspection, B/L LE edema, +Venous stasis changes, +B/L feet in dressing Neurologic/Psych:AAOX3, grossly no focal neurological deficits Skin: normal color, warm Results & Data Results & Data ([facility]) Vital Signs (Past 12 Hours) Vital Signs Temp Pulse Resp BP Pulse Ox 01/03/21 10:56 36.7 C 57 L 15 109/74 96 01/03/21 07:44 36.9 C 63 20 126/74 97 01/03/21 03:00 36.6 C 67 20 115/70 98 Laboratory Results Short CBC 01/03/21 Range/Units 07:22 WBC 9.17 (4.8-10.8) K/uL Hgb 10.3 L (14.0-18.0) g/dL Hct 33.5 L (42-52) % Plt Count 397 (130-400) K/uL BMP 01/03/21 07:22 Sodium 139 Potassium 3.8 Chloride 104 Carbon Dioxide 28 BUN 23 H Creatinine 1.52 H Glucose 131 H Calcium 8.9
[2021-01-03] MEDS: POLYETHYLENE (MIRALAX) 17 GM PACK PO PRN (12:52)
[2021-01-03] MEDS: DOCUSATE SODIUM/SENNA 50/8.6MG TAB PO SCH ×2 (12:52→20:54)
--- NOTE | 2021-01-03 17:34 | Psychiatric Consultation ---
Date of Consultation January 03, 2021 Impression / Recommendations Impression 55-year-old male with significant medical problems in addition to significant social stressors including recent divorce, financial stress patient will benefit from psychopharmacologic intervention in order to address his anxiety. He will also benefit from therapy services. (1) Anxiety: We will plan to start Prozac medication at 10 mg p.o. every morning starting tomorrow morning. Liaison to help arrange therapy services. Psych History Chief Complaint "I have been through a lot recently". History of Present Illness HPI as per psychiatric liaison "Met with pt for initial consultation. Pt was consulted for depression. Pt was cooperative during interview. Pt is known to our services from previous consult last month. At that time, pt was not interested in antidepressants but was agreeable to Ativan prn. Pt was not taking Ativan at home. He stated he received a dose of Ativan last evening and stated, "it made me feel even worse." Pt is now agreeable to a trial of an antidepressant. Pt stated he has tried multiple antidepressants in the past but he is unable to recall specific names. He stated he tried Wellbutrin and Trazodone in the past and they were ineffective. He states. "I'll try anything that doesn't make me tired." Pt informed he would be seen by Psychiatrist for recommendations. PHQ-9=17. Pt contributes much of his symptoms related to his medical issues. He is denying any SI but states, "if I on the operating room table, I wouldn't care." Pt denies any hx of SA or inpt psych hospitalizations. He states he has guns in his home but no ammo, however he feels safe at home. He currently has a therapist through [facility], Betty Barrett, whom he sees via zoom once weekly. He states he last spoke to her on 12/29/20. He states he recently changed insurances and he is unsure whether she is in network with his current insurance. Pt stated he has a good relationship with his current therapist. Pt informed our services could assist with verifying if she is in network vs referral to different therapist. Pt is unsure at this time as he is planning on having surgery in the upcoming week. Informed pt our services would continue to round on him and help with any assistance in aftercare he may need. Pt v erbalized understanding. Denies any further questions at this time." Upon evaluation this afternoon, patient Dorst the above information is accurate. He states that in addition to the significant medical issues he has, he has been facing increasing anxiety due to his social life as well. Patient states that since having had been in a wheelchair he finds it difficult to get around and has little supports in the community. He states that his children are able to help him occasionally, but are often busy with their own lives. Patient states that he recently has Covid and he still feels as if he may have some brain fog related to the infection. Additionally upon leaving the hospital from his Covid state, patient is in states that his filed for divorce. Patient states that his financial stress also contributes to his current anxiety. Although previously not interested in trying an antidepressant, patient is agreeable at this time to start Prozac medication in an attempt to alleviate some of his symptoms. It was also discussed with patient that we will attempt to provide community resources for him as well as set up therapy services if possible. Patient in agreement. Denies any previous psychotic or manic symptoms. Agreeable to try SSRI medication Allergies Allergy/AdvReac Type Severity Reaction Status Date / Time benzonatate AdvReac Intermediate choking, Verified 12/28/20 21:19 gagging Home Medications Medication Instructions Recorded Confirmed Type fluticasone propionate 50 2 sprays INTNAS BID gm 12/21/17 12/28/20 History mcg/actuation nasal spray,suspension (Flonase Allergy Relief) magnesium oxide 400 mg PO QAM cap 12/21/17 12/28/20 History mometasone-formoterol HFA 200 2 puffs INH BID 12/21/17 12/28/20 History mcg-5 mcg/actuation aerosol inhaler (Dulera) nitroglycerin 0.4 mg sublingual 0.4 mg SL Q5M PRN 12/21/17 12/28/20 History tablet omeprazole 20 mg capsule,delayed 20 mg PO QAM 12/21/17 12/28/20 History release tramadol 50 mg tablet 50 mg PO Q6H PRN 12/21/17 12/28/20 History ergocalciferol (vitamin D2) 62.5 50,000 unit PO WK 04/12/19 12/28/20 History mcg (2,500 unit) capsule gabapentin 300 mg capsule 300 mg PO TID 04/12/19 12/28/20 History hyoscyamine sulfate 0.125 mg 0.125 mg PO TID 04/12/19 12/28/20 History tablet (Levsin) clobetasol 0.05 % topical cream 1 applic TOPICAL BID 01/18/20 12/28/20 History blood-glucose meter (OneTouch #1 ea 02/21/20 12/28/20 Rx Verio Flex meter) albuterol sulfate 90 mcg/actuation 2 puff INHALATION QID PRN 05/30/20 12/28/20 History aerosol inhaler (Ventolin HFA) aspirin 81 mg tablet,delayed 81 mg PO QAM 06/12/20 12/28/20 History release warfarin 1 mg tablet 3 mg PO SUTH 07/12/20 12/28/20 History ammonium lactate 5 % lotion 1 applic TOPICAL DAILY PRN 08/15/20 12/28/20 History (Lac-Hydrin Five) potassium chloride 20 mEq 20 meq PO DAILY #30 tab 08/23/20 12/28/20 Rx tablet,extended release insulin aspart U-100 100 unit/mL See Rx Instructions CONTINUOUS 11/01/20 12/28/20 Rx subcutaneous solution (Novolog SUBCUTANEOUS INFUSION DAILY #12 ml U-100 Insulin aspart) hydrocodone 5 mg-acetaminophen 325 1 tab PO Q6H PRN 12/13/20 12/28/20 History mg tablet levothyroxine 88 mcg tablet 88 mcg PO DAILY 12/13/20 12/28/20 History metoprolol succinate 25 mg 25 mg PO BID 12/13/20 12/28/20 History tablet,extended release 24 hr metoprolol succinate 50 mg 50 mg PO BID 12/13/20 12/28/20 History tablet,extended release 24 hr spironolactone 25 mg tablet 25 mg PO DAILY 12/13/20 12/28/20 History torsemide 20 mg tablet 20 mg PO BID 12/13/20 12/28/20 History warfarin 1 mg tablet 2 mg PO [id number] 12/13/20 12/28/20 History atorvastatin 80 mg tablet 80 mg PO HS #0 tab 12/21/20 12/28/20 Rx diclofenac sodium 1 % topical gel 4 g EXT BID 10 Days #50 g 12/21/20 12/28/20 Rx (Voltaren Arthritis Pain) Personal History Highest Grade Completed: College Beliefs That Will Affect Care: None Patient History Medical History Arthritis 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 Bacteremia due to group B Streptococcus CAD (coronary artery disease) Cardiac defibrillator in situ 2007 with replacement 03/2020. follows [address] Dr. Maya. CHF (congestive heart failure) CKD (chronic kidney disease) stage 3, GFR 30-59 ml/min Deformity of foot Depression Diabetes type 2, uncontrolled Diabetic peripheral neuropathy associated with type 2 diabetes mellitus Dyslipidemia GERD (gastroesophageal reflux disease) H/O osteomyelitis History of diabetic ulcer of foot Hx of myocardial infarction found on testing Hx of osteomyelitis Hx of sepsis 06/2019 Hypertension Hypokalemia Hypothyroidism Ischemic cardiomyopathy Adams fracture Base of left fifth metatarsal, nonhealing x years Lymphedema Morbid obesity Peripheral arterial disease Rectal bleeding Sleep apnea BIPAP Sustained VT (ventricular tachycardia) T2DM (type 2 diabetes mellitus) Venous stasis ulcer of right lower leg with edema of right lower leg Vitamin D deficiency Surgical History H/O cardiac [facility] H/O foot surgery LEFT FOOT ULCER DEBRIDEMENT H/O shoulder surgery left History of cardiac cath V. tach -- no stent. 06/2019. unsure where it was done History of colonoscopy History of esophagogastroduodenoscopy (EGD) History of sinus surgery Hx of amputation of lesser toe Hx of tonsillectomy Family History Sister Family history of diabetes mellitus 2 Grandmother (Maternal) Family history of diabetes mellitus Grandfather (Maternal) Family history of diabetes mellitus Father Cancer Mother Cancer Other No family history of adverse response to anesthesia Social History Smoking Status: Never smoker Second Hand Exposure: No; Do You Dip or Chew Tobacco: No; Hx Alcohol Use: No Hx Substance Use: No Preferred Language: [place]an Communication Ability: Effective Young Adult Librarian Required: No Beliefs That Will Affect Care: None marital status: Current Living Situation: Alone current occupational status: disabled How many Children do You have: 3 Feels Safe at Home: Yes Safety Concerns: Feels Safe At This Time Assistive Devices: Glasses Physical Exam Psychiatric: Orientation: alert and oriented x 3 Apperance: + disheveled Morbidly obese Eye Contact: + fair eye contact Motor Behavior: no abnormal motor movements Speech: normal rate/rhythm/volume of speech Affect: + depressed affect, + anxious affect, + blunted affect and + irritable affect Mood: + depressed mood, + anxious mood and + irritable mood Thought Process: goal directed thought process Thought Content: reality based without delusions Suicidal Thoughts: denies suicidal thoughts Homicidal Thoughts: denies homicidal thoughts Hallucinations: no auditory hallucinations and no visual hallucinations Cognition: recent memory grossly intact Estimated Intelligence: consistent with education level Insight: + fair insight Judgement: + fair judgement Vital Signs (Past 24 Hours): Last Vital Signs Temp 36.5 C 01/03/21 15:00 Pulse 73 01/03/21 15:00 Resp 22 01/03/21 15:00 BP 112/69 01/03/21 15:00 Pulse Ox 96 01/03/21 15:00 Review of Systems All systems reviewed & are unremarkable except as noted in HPI & below Results & Data (PSY) Medications Administered Hydrocodone Bitart/Acetaminophen (Hydrocodone/Acetamophen 5/325mg Tab) 1 tab PO Q6H PRN PRN Reason: Moderate Pain Stop: 01/12/21 00:44 Last Admin: 01/03/21 07:49 Dose: 1 tab Documented by: [id number] Admin: 01/02/21 22:51 Dose: 1 tab Documented by: [id number] Admin: 01/02/21 08:33 Dose: 1 tab Documented by: [id number] Admin: 01/02/21 01:25 Dose: 1 tab Documented by: [id number] Admin: 01/01/21 19:17 Dose: 1 tab Documented by: [id number] Admin: 01/01/21 11:28 Dose: 1 tab Documented by: [id number] Admin: 01/01/21 01:17 Dose: 1 tab Documented by: [id number] Admin: 12/31/20 17:09 Dose: 1 tab Documented by: [id number] Admin: 12/31/20 08:58 Dose: 1 tab Documented by: [id number] Admin: 12/29/20 23:21 Dose: 1 tab Documented by: [id number] Admin: 12/29/20 14:10 Dose: 1 tab Documented by: [id number] Admin: 12/29/20 06:12 Dose: 1 tab Documented by: [id number] Aspirin (Aspirin 81 Mg Ectab) 81 mg PO QAM [facility] Stop: 01/28/21 08:59 Last Admin: 01/03/21 07:42 Dose: 81 mg Documented by: [id number] Admin: 01/02/21 07:27 Dose: 81 mg Documented by: [id number] Admin: 01/01/21 08:45 Dose: 81 mg Documented by: [id number] Admin: 12/31/20 07:51 Dose: 81 mg Documented by: [id number] Admin: 12/30/20 08:33 Dose: 81 mg Documented by: [id number] Admin: 12/29/20 09:57 Dose: 81 mg Documented by: [id number] Atorvastatin Calcium (Atorvastatin 40 Mg Tab) 80 mg PO HS [facility] Stop: 01/28/21 20:59 Last Admin: 01/02/21 20:16 Dose: 80 mg Documented by: [id number] Admin: 01/01/21 20:49 Dose: 80 mg Documented by: [id number] Admin: 12/31/20 21:38 Dose: 80 mg Documented by: [id number] Admin: 12/30/20 20:52 Dose: 80 mg Documented by: [id number] Admin: 12/29/20 22:11 Dose: Not Given Documented by: [id number] Diclofenac Sodium (Diclofenac Sod 1% Gel 100 Gm Tube) 4 gm EXT BID MATT Stop: 01/28/21 08:59 Last Admin: 01/03/21 07:43 Dose: Not Given Documented by: [id number] Admin: 01/02/21 20:17 Dose: Not Given Documented by: [id number] Admin: 01/02/21 07:29 Dose: Not Given Documented by: [id number] Admin: 01/01/21 20:48 Dose: Not Given Documented by: [id number] Admin: 01/01/21 08:46 Dose: Not Given Documented by: [id number] Admin: 12/31/20 21:39 Dose: 4 gm Documented by: [id number] Admin: 12/31/20 07:53 Dose: Not Given Documented by: [id number] Admin: 12/30/20 20:52 Dose: 4 gm Documented by: [id number] Admin: 12/30/20 08:39 Dose: 4 gm Documented by: [id number] Admin: 12/29/20 22:19 Dose: 4 gm Documented by: [id number] Admin: 12/29/20 09:58 Dose: Not Given Documented by: [id number] Ergocalciferol (Ergocalciferol 50,000 Units 1250 Mcg Cap) 50,000 units PO Tu@0900 MATT Stop: 01/31/21 08:59 Last Admin: 01/01/21 08:45 Dose: 50,000 units Documented by: [id number] Fluticasone Propionate (Fluticasone Propionate Na Spr 16 Gm Btl) 2 sprays NA BID MATT Stop: 01/28/21 08:59 Last Admin: 01/03/21 07:43 Dose: 2 sprays Documented by: [id number] Admin: 01/02/21 20:17 Dose: 2 sprays Documented by: [id number] Admin: 01/02/21 07:28 Dose: 2 sprays Documented by: [id number] Admin: 01/01/21 20:47 Dose: 2 sprays Documented by: [id number] Admin: 01/01/21 08:44 Dose: 2 sprays Documented by: [id number] Admin: 12/31/20 21:39 Dose: 2 sprays Documented by: [id number] Admin: 12/31/20 07:53 Dose: 2 sprays Documented by: [id number] Admin: 12/30/20 20:52 Dose: 2 sprays Documented by: [id number] Admin: 12/30/20 08:39 Dose: 2 sprays Documented by: [id number] Admin: 12/29/20 22:12 Dose: 2 sprays Documented by: [id number] Admin: 12/29/20 09:58 Dose: 2 sprays Documented by: [id number] Fluticasone/Vilanterol (Fluticasone/Vilanterol 200/25mcg 14 Puffs/Inhaler) 1 puffs INH DAILY MATT; Protocol Stop: 01/28/21 08:59 Last Admin: 01/03/21 07:43 Dose: 1 puffs Documented by: [id number] Admin: 01/02/21 07:28 Dose: 1 puffs Documented by: [id number] Admin: 01/01/21 08:44 Dose: 1 puffs Documented by: [id number] Admin: 12/31/20 07:53 Dose: 1 puffs Documented by: [id number] Admin: 12/30/20 08:34 Dose: 1 puffs Documented by: [id number] Admin: 12/29/20 09:58 Dose: 1 puffs Documented by: [id number] Gabapentin (Gabapentin 300 Mg Cap) 300 mg PO TID MATT Stop: 01/28/21 01:29 Last Admin: 01/03/21 13:55 Dose: 300 mg Documented by: [id number] Admin: 01/03/21 07:41 Dose: 300 mg Documented by: [id number] Admin: 01/02/21 20:16 Dose: 300 mg Documented by: [id number] Admin: 01/02/21 14:15 Dose: 300 mg Documented by: [id number] Admin: 01/02/21 07:28 Dose: 300 mg Documented by: [id number] Admin: 01/01/21 20:47 Dose: 300 mg Documented by: [id number] Admin: 01/01/21 14:24 Dose: 300 mg Documented by: [id number] Admin: 01/01/21 08:45 Dose: 300 mg Documented by: [id number] Admin: 12/31/20 21:40 Dose: 300 mg Documented by: [id number] Admin: 12/31/20 15:13 Dose: 300 mg Documented by: [id number] Admin: 12/31/20 07:52 Dose: 300 mg Documented by: [id number] Admin: 12/30/20 20:53 Dose: 300 mg Documented by: [id number] Admin: 12/30/20 15:11 Dose: 300 mg Documented by: [id number] Admin: 12/30/20 08:31 Dose: 300 mg Documented by: [id number] Admin: 12/29/20 22:13 Dose: 300 mg Documented by: [id number] Admin: 12/29/20 14:10 Dose: 300 mg Documented by: [id number] Admin: 12/29/20 09:59 Dose: 300 mg Documented by: [id number] Admin: 12/29/20 02:04 Dose: 300 mg Documented by: [id number] Hydromorphone HCl (Hydromorphone Inj 0.5 Mg/0.5 Ml Syr) 0.5 mg IV Q3H PRN PRN Reason: Severe Pain Stop: 01/12/21 01:23 Last Admin: 01/03/21 12:06 Dose: 0.5 mg Documented by: [id number] Admin: 01/03/21 03:35 Dose: 0.5 mg Documented by: [id number] Admin: 01/02/21 17:50 Dose: 0.5 mg Documented by: [id number] Admin: 01/02/21 10:56 Dose: 0.5 mg Documented by: [id number] Admin: 01/02/21 05:38 Dose: 0.5 mg Documented by: [id number] Admin: 01/01/21 20:57 Dose: 0.5 mg Documented by: [id number] Admin: 01/01/21 14:34 Dose: 0.5 mg Documented by: [id number] Admin: 01/01/21 06:10 Dose: 0.5 mg Documented by: [id number] Admin: 12/31/20 19:47 Dose: 0.5 mg Documented by: [id number] Admin: 12/31/20 12:42 Dose: 0.5 mg Documented by: [id number] Admin: 12/31/20 05:35 Dose: 0.5 mg Documented by: [id number] Admin: 12/30/20 21:05 Dose: 0.5 mg Documented by: [id number] Admin: 12/30/20 15:35 Dose: 0.5 mg Documented by: [id number] Admin: 12/30/20 11:49 Dose: 0.5 mg Documented by: [id number] Admin: 12/30/20 11:45 Dose: 0.5 mg Documented by: [id number] Admin: 12/30/20 06:27 Dose: 0.5 mg Documented by: [id number] Hyoscyamine (Hyoscyamine Sulfate 0.125 Mg Tab) 0.125 mg PO TID MATT Stop: 01/28/21 01:14 Last Admin: 01/03/21 13:55 Dose: 0.125 mg Documented by: [id number] Admin: 01/03/21 07:41 Dose: 0.125 mg Documented by: [id number] Admin: 01/02/21 20:17 Dose: 0.125 mg Documented by: [id number] Admin: 01/02/21 13:13 Dose: 0.125 mg Documented by: [id number] Admin: 01/02/21 07:28 Dose: 0.125 mg Documented by: [id number] Admin: 01/01/21 20:47 Dose: 0.125 mg Documented by: [id number] Admin: 01/01/21 14:24 Dose: 0.125 mg Documented by: [id number] Admin: 01/01/21 08:45 Dose: 0.125 mg Documented by: [id number] Admin: 12/31/20 21:40 Dose: 0.125 mg Documented by: [id number] Admin: 12/31/20 15:13 Dose: 0.125 mg Documented by: [id number] Admin: 12/31/20 07:52 Dose: 0.125 mg Documented by: [id number] Admin: 12/30/20 20:53 Dose: 0.125 mg Documented by: [id number] Admin: 12/30/20 15:11 Dose: 0.125 mg Documented by: [id number] Admin: 12/30/20 08:31 Dose: 0.125 mg Documented by: [id number] Admin: 12/29/20 22:14 Dose: 0.125 mg Documented by: [id number] Admin: 12/29/20 14:10 Dose: 0.125 mg Documented by: [id number] Admin: 12/29/20 10:00 Dose: 0.125 mg Documented by: [id number] Admin: 12/29/20 02:04 Dose: 0.125 mg Documented by: [id number] Daptomycin 650 mg/ Syringe 13 mls @ 6.5 mls/min IV Q24H MATT; Protocol Stop: 02/09/21 01:59 Last Admin: 01/03/21 01:50 Dose: 6.5 mls/min Documented by: [id number] Admin: 01/02/21 01:25 Dose: 6.5 mls/min Documented by: [id number] Admin: 01/01/21 01:20 Dose: 6.5 mls/min Documented by: [id number] Admin: 12/31/20 01:50 Dose: 6.5 mls/min Documented by: [id number] Admin: 12/30/20 01:22 Dose: 6.5 mls/min Documented by: [id number] Admin: 12/29/20 01:57 Dose: 6.5 mls/min Documented by: [id number] Heparin Sodium/Dextrose (Heparin Sodium/Dextrose) 25,000 units in 500 mls @ 48 mls/hr IV .[id number] MATT; Protocol Stop: 01/28/21 07:59 Last Admin: 01/03/21 12:03 Dose: 2,400 units/hr, 48 mls/hr Documented by: [id number] Cosigned by: [id number] Titration: 01/03/21 11:26 Dose: 2,400 units/hr, 48 mls/hr Documented by: [id number] Cosigned by: [id number] Admin: 01/03/21 01:00 Dose: 2,400 units/hr, 48 mls/hr Documented by: [id number] Cosigned by: [id number] Titration: 01/02/21 23:38 Dose: 2,400 units/hr, 48 mls/hr Documented by: [id number] Cosigned by: [id number] Admin: 01/02/21 13:12 Dose: 2,400 units/hr, 48 mls/hr Documented by: [id number] Cosigned by: [id number] Titration: 01/02/21 13:12 Dose: 2,400 units/hr, 48 mls/hr Documented by: [id number] Cosigned by: [id number] Admin: 01/02/21 02:50 Dose: 2,400 units/hr, 48 mls/hr Documented by: [id number] Cosigned by: [id number] Titration: 01/02/21 02:50 Dose: 2,400 units/hr, 48 mls/hr Documented by: [id number] Cosigned by: [id number] Titration: 01/01/21 18:59 Dose: 2,400 units/hr, 48 mls/hr Documented by: [id number] Cosigned by: [id number] Admin: 01/01/21 16:55 Dose: 2,400 units/hr, 48 mls/hr Documented by: [id number] Cosigned by: [id number] Titration: 01/01/21 16:55 Dose: 2,400 units/hr, 48 mls/hr Documented by: [id number] Cosigned by: [id number] Titration: 01/01/21 14:25 Dose: 2,400 units/hr, 48 mls/hr Documented by: [id number] Cosigned by: [id number] Admin: 01/01/21 09:23 Dose: Not Given Documented by: [id number] Admin: 01/01/21 09:23 Dose: Not Given Documented by: [id number] Titration: 01/01/21 07:50 Dose: 2,400 units/hr, 48 mls/hr Documented by: [id number] Cosigned by: [id number] Admin: 01/01/21 07:50 Dose: 2,400 units/hr, 48 mls/hr Documented by: [id number] Cosigned by: [id number] Titration: 01/01/21 07:50 Dose: 2,300 units/hr, 46 mls/hr Documented by: [id number] Cosigned by: [id number] Admin: 01/01/21 07:50 Dose: 2,400 units/hr, 48 mls/hr Documented by: [id number] Cosigned by: [id number] Titration: 01/01/21 07:14 Dose: 2,300 units/hr, 46 mls/hr Documented by: [id number] Cosigned by: [id number] Admin: 12/31/20 21:38 Dose: 2,300 units/hr, 46 mls/hr Documented by: [id number] Cosigned by: [id number] Titration: 12/31/20 21:21 Dose: 2,300 units/hr, 46 mls/hr Documented by: [id number] Cosigned by: [id number] Titration: 12/31/20 19:35 Dose: 2,300 units/hr, 46 mls/hr Documented by: [id number] Cosigned by: [id number] Admin: 12/31/20 10:34 Dose: Not Given Documented by: [id number] Admin: 12/31/20 10:31 Dose: Not Given Documented by: [id number] Admin: 12/31/20 10:31 Dose: Not Given Documented by: [id number] Admin: 12/31/20 10:28 Dose: 2,300 units/hr, 46 mls/hr Documented by: [id number] Cosigned by: [id number] Titration: 12/31/20 10:28 Dose: 2,300 units/hr, 46 mls/hr Documented by: [id number] Cosigned by: [id number] Titration: 12/31/20 07:37 Dose: 2,300 units/hr, 46 mls/hr Documented by: [id number] Cosigned by: [id number] Titration: 12/31/20 07:16 Dose: 2,300 units/hr, 46 mls/hr Documented by: [id number] Cosigned by: [id number] Titration: 12/31/20 01:49 Dose: 2,300 units/hr, 46 mls/hr Documented by: [id number] Cosigned by: [id number] Admin: 12/30/20 23:41 Dose: 2,200 units/hr, 44 mls/hr Documented by: [id number] Cosigned by: [id number] Titration: 12/30/20 23:09 Dose: 2,200 units/hr, 44 mls/hr Documented by: [id number] Cosigned by: [id number] Titration: 12/30/20 19:20 Dose: 2,200 units/hr, 44 mls/hr Documented by: [id number] Cosigned by: [id number] Titration: 12/30/20 18:56 Dose: 2,200 units/hr, 44 mls/hr Documented by: [id number] Cosigned by: [id number] Titration: 12/30/20 15:29 Dose: 2,200 units/hr, 44 mls/hr Documented by: [id number] Cosigned by: [id number] Admin: 12/30/20 11:47 Dose: 2,200 units/hr, 44 mls/hr Documented by: [id number] Cosigned by: [id number] Titration: 12/30/20 11:43 Dose: 0 units/hr, 0 mls/hr Documented by: [id number] Cosigned by: [id number] Titration: 12/30/20 07:08 Dose: 2,100 units/hr, 42 mls/hr Documented by: [id number] Cosigned by: [id number] Titration: 12/30/20 01:45 Dose: 2,100 units/hr, 42 mls/hr Documented by: [id number] Cosigned by: [id number] Admin: 12/29/20 23:33 Dose: 2,000 units/hr, 40 mls/hr Documented by: [id number] Cosigned by: [id number] Titration: 12/29/20 23:33 Dose: 2,000 units/hr, 40 mls/hr Documented by: [id number] Cosigned by: [id number] Titration: 12/29/20 19:16 Dose: 2,000 units/hr, 40 mls/hr Documented by: [id number] Cosigned by: [id number] Admin: 12/29/20 11:52 Dose: 1,900 units/hr, 38 mls/hr Documented by: [id number] Cosigned by: [id number] Insulin Aspart (Novolog Insulin Pump) 1 ea N/A ACHS MATT; Protocol Stop: 01/28/21 07:29 Last Admin: 01/03/21 17:16 Dose: 1 ea Documented by: [id number] Admin: 01/03/21 12:09 Dose: 1 ea Documented by: [id number] Admin: 01/03/21 08:01 Dose: 1 ea Documented by: [id number] Admin: 01/02/21 21:23 Dose: 1 ea Documented by: [id number] Admin: 01/02/21 17:41 Dose: 1 ea Documented by: [id number] Admin: 01/02/21 12:52 Dose: 1 ea Documented by: [id number] Admin: 01/02/21 08:34 Dose: 1 ea Documented by: [id number] Admin: 01/01/21 20:53 Dose: 1 ea Documented by: [id number] Admin: 01/01/21 16:53 Dose: 1 ea Documented by: [id number] Admin: 01/01/21 11:59 Dose: 1 ea Documented by: [id number] Admin: 01/01/21 08:43 Dose: 1 ea Documented by: [id number] Admin: 12/31/20 21:43 Dose: 1 ea Documented by: [id number] Admin: 12/31/20 17:09 Dose: 14.75 ea Documented by: [id number] Admin: 12/31/20 11:50 Dose: 10.5 ea Documented by: [id number] Admin: 12/31/20 07:49 Dose: 12.82 ea Documented by: [id number] Admin: 12/30/20 23:42 Dose: 1 ea Documented by: [id number] Admin: 12/30/20 16:47 Dose: 1 ea Documented by: [id number] Admin: 12/30/20 14:55 Dose: Not Given Documented by: [id number] Admin: 12/30/20 08:15 Dose: 1 ea Documented by: [id number] Admin: 12/29/20 22:15 Dose: 1 ea Documented by: [id number] Cosigned by: [id number] Admin: 12/29/20 16:02 Dose: 1 ea Documented by: [id number] Cosigned by: [id number] Admin: 12/29/20 11:52 Dose: 1 ea Documented by: [id number] Admin: 12/29/20 10:03 Dose: 1 ea Documented by: [id number] Levothyroxine Sodium (Levothyroxine Sodium 88 Mcg Tablet) 88 mcg PO DAILYBB MATT Stop: 01/28/21 06:29 Last Admin: 01/03/21 05:46 Dose: 88 mcg Documented by: [id number] Admin: 01/02/21 05:38 Dose: 88 mcg Documented by: [id number] Admin: 01/01/21 06:05 Dose: 88 mcg Documented by: [id number] Admin: 12/31/20 06:19 Dose: 88 mcg Documented by: [id number] Admin: 12/30/20 06:28 Dose: 88 mcg Documented by: [id number] Admin: 12/29/20 06:12 Dose: 88 mcg Documented by: [id number] Loratadine (Loratadine 10 Mg Tab) 10 mg [facility] [place] Stop: 01/29/21 08:59 Last Admin: 01/03/21 07:42 Dose: 10 mg Documented by: [id number] Admin: 01/02/21 07:27 Dose: 10 mg Documented by: [id number] Admin: 01/01/21 08:45 Dose: 10 mg Documented by: [id number] Admin: 12/31/20 07:51 Dose: 10 mg Documented by: [id number] Admin: 12/30/20 08:32 Dose: 10 mg Documented by: [id number] Lorazepam (Lorazepam 0.5 Mg Tab) 0.5 mg PO QID PRN PRN Reason: Anxiety/Insomnia Stop: 02/01/21 23:05 Last Admin: 01/02/21 23:30 Dose: 0.5 mg Documented by: [id number] Magnesium Oxide (Magnesium Oxide 400 Mg Tab) 400 mg PO [facility] Stop: 01/28/21 08:59 Last Admin: 01/03/21 07:41 Dose: 400 mg Documented by: [id number] Admin: 01/02/21 07:27 Dose: 400 mg Documented by: [id number] Admin: 01/01/21 08:45 Dose: 400 mg Documented by: [id number] Admin: 12/31/20 07:50 Dose: 400 mg Documented by: [id number] Admin: 12/30/20 08:33 Dose: 400 mg Documented by: [id number] Admin: 12/29/20 10:00 Dose: 400 mg Documented by: [id number] Metoprolol Succinate (Metoprolol Succ 50mg Ext Rel Tab) 50 mg PO BID [facility] Stop: 01/28/21 01:29 Last Admin: 01/03/21 07:40 Dose: 50 mg Documented by: [id number] Admin: 01/02/21 20:16 Dose: 50 mg Documented by: [id number] Admin: 01/02/21 07:27 Dose: 50 mg Documented by: [id number] Admin: 01/01/21 20:49 Dose: 50 mg Documented by: [id number] Admin: 01/01/21 08:45 Dose: 50 mg Documented by: [id number] Admin: 12/31/20 21:42 Dose: 50 mg Documented by: [id number] Admin: 12/31/20 07:51 Dose: 50 mg Documented by: [id number] Admin: 12/30/20 20:53 Dose: 50 mg Documented by: [id number] Admin: 12/30/20 08:33 Dose: 50 mg Documented by: [id number] Admin: 12/29/20 22:14 Dose: 50 mg Documented by: [id number] Admin: 12/29/20 10:00 Dose: 50 mg Documented by: [id number] Admin: 12/29/20 02:04 Dose: 50 mg Documented by: [id number] Metoprolol Succinate (Metoprolol Succ 25mg Ext Rel Tab) 25 mg PO BID [facility] Stop: 01/28/21 01:29 Last Admin: 01/03/21 09:14 Dose: 25 mg Documented by: [id number] Admin: 01/02/21 20:16 Dose: 25 mg Documented by: [id number] Admin: 01/02/21 07:28 Dose: 25 mg Documented by: [id number] Admin: 01/01/21 20:48 Dose: 25 mg Documented by: [id number] Admin: 01/01/21 08:45 Dose: 25 mg Documented by: [id number] Admin: 12/31/20 21:42 Dose: 25 mg Documented by: [id number] Admin: 12/31/20 07:51 Dose: 25 mg Documented by: [id number] Admin: 12/30/20 20:54 Dose: 25 mg Documented by: [id number] Admin: 12/30/20 08:32 Dose: 25 mg Documented by: [id number] Admin: 12/29/20 22:14 Dose: 25 mg Documented by: [id number] Admin: 12/29/20 10:00 Dose: 25 mg Documented by: [id number] Admin: 12/29/20 02:04 Dose: 25 mg Documented by: [id number] Miscellaneous (Clobetasol Cream: Order Awaiting Action) 1 ea N/A QS MATT Stop: 01/28/21 07:59 Last Admin: 01/03/21 13:21 Dose: Not Given Documented by: [id number] Admin: 01/03/21 07:43 Dose: Not Given Documented by: [id number] Admin: 01/03/21 00:05 Dose: Not Given Documented by: [id number] Admin: 01/02/21 15:29 Dose: Not Given Documented by: [id number] Admin: 01/02/21 07:29 Dose: Not Given Documented by: [id number] Admin: 01/02/21 01:05 Dose: Not Given Documented by: [id number] Admin: 01/01/21 15:17 Dose: Not Given Documented by: [id number] Admin: 01/01/21 08:44 Dose: Not Given Documented by: [id number] Admin: 01/01/21 01:18 Dose: 1 ea Documented by: [id number] Admin: 12/31/20 17:10 Dose: Not Given Documented by: [id number] Admin: 12/31/20 07:38 Dose: Not Given Documented by: [id number] Admin: 12/31/20 00:20 Dose: Not Given Documented by: [id number] Admin: 12/30/20 15:36 Dose: Not Given Documented by: [id number] Admin: 12/30/20 14:53 Dose: Not Given Documented by: [id number] Admin: 12/29/20 23:48 Dose: Not Given Documented by: [id number] Admin: 12/29/20 15:18 Dose: Not Given Documented by: [id number] Admin: 12/29/20 09:57 Dose: Not Given Documented by: [id number] Pantoprazole Sodium (Pantoprazole 40 Mg Tab) 40 mg PO [facility]; Protocol Stop: 01/28/21 08:59 Last Admin: 01/03/21 07:42 Dose: 40 mg Documented by: [id number] Admin: 01/02/21 07:28 Dose: 40 mg Documented by: [id number] Admin: 01/01/21 08:45 Dose: 40 mg Documented by: [id number] Admin: 12/31/20 07:50 Dose: 40 mg Documented by: [id number] Admin: 12/30/20 08:33 Dose: 40 mg Documented by: [id number] Admin: 12/29/20 10:01 Dose: 40 mg Documented by: [id number] Polyethylene Glycol (Polyethylene (Miralax) 17 Gm Pack) 17 gm PO DAILY PRN PRN Reason: Constipation Stop: 01/28/21 00:44 Last Admin: 01/03/21 12:52 Dose: 17 gm Documented by: [id number] Potassium Chloride (Potassium Chloride Crtab 20 Meq Tabcr) 20 meq PO DAILY MATT Stop: 01/28/21 08:59 Last Admin: 01/03/21 07:41 Dose: 20 meq Documented by: [id number] Admin: 01/02/21 07:27 Dose: 20 meq Documented by: [id number] Admin: 01/01/21 08:45 Dose: 20 meq Documented by: [id number] Admin: 12/31/20 07:51 Dose: 20 meq Documented by: [id number] Admin: 12/30/20 08:32 Dose: 20 meq Documented by: [id number] Admin: 12/29/20 10:01 Dose: 20 meq Documented by: [id number] Senna/Docusate Sodium (Docusate Sodium/Senna 50/8.6mg Tab) 1 tab PO BID MATT Stop: 02/02/21 12:29 Last Admin: 01/03/21 12:52 Dose: 1 tab Documented by: [id number] Spironolactone (Spironolactone 25 Mg Tab) 25 mg PO DAILY MATT Stop: 01/28/21 08:59 Last Admin: 01/03/21 07:41 Dose: 25 mg Documented by: [id number] Admin: 01/02/21 07:27 Dose: 25 mg Documented by: [id number] Admin: 01/01/21 08:45 Dose: 25 mg Documented by: [id number] Admin: 12/31/20 07:52 Dose: 25 mg Documented by: [id number] Admin: 12/30/20 08:32 Dose: 25 mg Documented by: [id number] Admin: 12/29/20 10:01 Dose: 25 mg Documented by: [id number] Torsemide (Torsemide 20 Mg Tab) 20 mg PO BID17 MATT Stop: 01/28/21 08:59 Last Admin: 01/03/21 17:15 Dose: 20 mg Documented by: [id number] Admin: 01/03/21 07:42 Dose: 20 mg Documented by: [id number] Admin: 01/02/21 16:55 Dose: 20 mg Documented by: [id number] Admin: 01/02/21 07:27 Dose: 20 mg Documented by: [id number] Admin: 01/01/21 16:52 Dose: 20 mg Documented by: [id number] Admin: 01/01/21 08:45 Dose: 20 mg Documented by: [id number] Admin: 12/31/20 17:09 Dose: 20 mg Documented by: [id number] Admin: 12/31/20 07:50 Dose: 20 mg Documented by: [id number] Admin: 12/30/20 16:49 Dose: 20 mg Documented by: [id number] Admin: 12/30/20 08:33 Dose: 20 mg Documented by: [id number] Admin: 12/29/20 16:01 Dose: 20 mg Documented by: [id number] Admin: 12/29/20 10:01 Dose: 20 mg Documented by: [id number] Coding Level of Care Code 08754 U Intl Hosp Care Lvl 2 Diagnoses Anxiety F41.9 Time Spent (min) 45
[2021-01-03] MEDS: ATORVASTATIN 40 MG TAB PO SCH (20:54)
[2021-01-04] MEDS: CLOBETASOL SCH ×4 (01:10→22:07)
[2021-01-04] MEDS: DAPTOmycin 650 MG in SYRINGE 0 ML IV SCH (01:40)
[2021-01-04] MEDS: HYDROCODONE/ACETAMOPHEN 5/325MG TAB PO PRN ×2 (02:47→10:30)
[2021-01-04] MEDS: HYDROmorphone INJ 0.5 MG/0.5 ML SYR IV PRN ×4 (05:43→20:52)
[2021-01-04] MEDS: LEVOTHYROXINE SODIUM 88 MCG TABLET PO SCH (05:43)
[2021-01-04] MEDS: DOCUSATE SODIUM/SENNA 50/8.6MG TAB PO SCH ×2 (08:29→20:55)
[2021-01-04] MEDS: FLUoxetine HCL 10 MG CAP PO SCH (08:29)
[2021-01-04] MEDS: FLUTICASONE/VILANTEROL 200/25MCG 14 PUFFS/INHALER INH SCH (08:29)
[2021-01-04] MEDS: DICLOFENAC SOD 1% GEL 100 GM TUBE EXT SCH ×2 (08:29→20:55)
[2021-01-04] MEDS: ASPIRIN 81 MG ECTAB PO SCH (08:29)
[2021-01-04] MEDS: HYOSCYAMINE SULFATE 0.125 MG TAB PO SCH ×3 (08:29→20:55)
[2021-01-04] MEDS: LORATADINE 10 MG TAB PO SCH (08:29)
[2021-01-04] MEDS: FLUTICASONE PROPIONATE NA SPR 16 GM BTL SCH ×2 (08:29→20:52)
[2021-01-04] MEDS: GABAPENTIN 300 MG CAP PO SCH ×3 (08:29→20:54)
[2021-01-04] MEDS: METOPROLOL SUCC 25MG EXT REL TAB PO SCH ×2 (08:30→20:54)
[2021-01-04] MEDS: METOPROLOL SUCC 50MG EXT REL TAB PO SCH ×2 (08:30→20:54)
[2021-01-04] MEDS: TORSEMIDE 20 MG TAB PO SCH ×2 (08:30→17:18)
[2021-01-04] MEDS: MAGNESIUM OXIDE 400 MG TAB PO SCH (08:30)
[2021-01-04] MEDS: POTASSIUM CHLORIDE CRTAB 20 MEQ TABCR PO SCH (08:30)
[2021-01-04] MEDS: PANTOprazole 40 MG TAB PO SCH (08:30)
[2021-01-04] MEDS: SPIRONOLACTONE 25 MG TAB PO SCH (08:31)
[2021-01-04] MEDS: NovoLOG INSULIN PUMP SCH ×4 (08:32→20:56)
[2021-01-04 08:52] LABS: Partial Thromboplastin Ratio 1.9
[2021-01-04 08:55] LABS: Partial Thromboplastin Time 48.9 Seconds (21.0-31.0)
[2021-01-04] MEDS: HEPARIN SODIUM/DEXTROSE 25,000 UNITS/500 ML BAG IV SCH ×3 (09:39→19:28)
[2021-01-04 09:45] LABS: BUN Creatinine Ratio 18.1 (10-20); Calcium 9.6 mg/dl (8.5-10.1); Creatinine Clr Calc Pharmacy 84.7 ml/min; Est GFR (African American) 61.5 ml/min; Est GFR (Non-African American) 53.1 ml/min; Magnesium 2.3 mg/dl (1.8-2.4); Potassium 4.3 mmol/L (3.5-5.1)
[2021-01-04] MEDS ORDERED: bisacodyL 10 MG SUPP PR PRN (12:49)
--- NOTE | 2021-01-04 12:55 | Hospitalist Progress Note ---
Date of Service January 04, 2021 Assessment & Plan (1) Acute osteomyelitis of left foot: (2) Acute pain of left foot: (3) Diabetic infection of left foot: (4) Diabetic ulcer of left foot associated with type 2 diabetes mellitus, with fat layer exposed: Plan: Acute Osteomyelitis Severe Charcot arthropathy with multifocal osteomyelitis left hindfoot/midfoot with midfoot dissociation --Foot MRI 12/14/20:Large plantar ulcer of the lateral midfoot forefoot junction with extensive cellulitis. Deep tissue gas is likely secondary to direct extension from the wound. Gas forming organism could appear similarly. No drainable abscess. Extensive osteomyelitis throughout the forefoot and midfoot as above with articular and bony destruction resulting in dorsal dislocation of the forefoot. 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 Associated changes of Charcot neuropathy may also be present. These findings are new from 08/01/2020. --Arterial Doppler 12/17/20:No evidence for arterial occlusion within the left lower extremity. Monophasic waveforms seen within the left superficial femoral, popliteal, and calf arteries suggestive of diffuse atherosclerotic disease. However, no elevated velocities to suggest stenosis at this time. -Patient was hospitalized for same issue previously--patient declined surgery at the time and was discharged home on IV daptomycin -Wound culture from Dec 13 growing-100 bacterium, Camila albicans/dubliniensis -Blood Cx: No growth -Continue Daptomycin -Appreciate Orthopedics/Vascular Surgery Input -Will need AKA -Pain control, wound care -Given high risk for surgery with multiple comorbidities, vascular surgery recommended transfer to tertiary care facility for surgery Patient is accepted at [facility] for further care. Accepting Physycian: Dr.Juan Segura Plan to transfer when bed available NSVT H/O SVT S/P AICD Patient had asymptomatic 8 beats of VT Continue metoprolol Discussed with psychologist personnel on-call We will plan to increase metoprolol dose if any recurrence Monitor on telemetry Depression Anxiety Previously followed with psychiatry as outpatient Denies any suicidal ideation Appreciate psychiatry input Started on fluoxetine Constipation Continue bowel regimen (5) T2DM (type 2 diabetes mellitus): Plan: Hemoglobin A1c is 8.1. Continue Insulin therapy Monitor BGs Appreciate glycemic Pharmacist help (6) Ischemic cardiomyopathy: (7) S/P ICD (internal cardiac defibrillator) procedure: (8) Chronic diastolic heart failure: Plan: Continue home diuretics-Aldactone, torsemide Continue metoprolol succinate (9) Atrial fibrillation: Plan: Continue Metoprolol Coumadin on hold as planned for surgery Continue IV heparin for now (10) NINA on CPAP: Plan: CPAP at bedtime (11) CAD (coronary artery disease): Plan: Continue aspirin, statin (12) Morbid obesity: Plan: BMI: 45 (13) DVT prophylaxis: Plan: Heparin drip Code Status Full Code Disposition Plan to transfer to [facility] when bed available Admission and Anticipated Discharge Date Admission Date: December 28, 2020 Subjective Patient is seen and examined at bedside Patient had persistent left neck pain Discussed with cardiology today No new complaints Denies chest pain, dyspnea, dizziness, nausea, abdominal pain Review of Systems Review of Systems: All systems reviewed & are unremarkable except as noted in Subjective Physical Exam Physical Exam: Physical Exam: Vitals signs as noted above General Appearance:Morbidly Obese, no apparent distress Head: normocephalic, Atraumatic Eyes: normal inspection, EOMI Neck: supple, Trachea midline Respiratory/Chest: Normal breath sounds, CTA Cardiovascular: S1, S2, No murmur Abdomen/GI:Soft, Non tender, Bowel sounds present Extremities/Musculoskeletal:normal inspection, B/L LE edema, +Venous stasis changes, +B/L feet in dressing Neurologic/Psych:AAOX3, grossly no focal neurological deficits Skin: normal color, warm Results & Data Results & Data ([facility]) Vital Signs (Past 12 Hours) Vital Signs Temp Pulse Pulse Resp BP Pulse Ox 01/04/21 09:24 64 01/04/21 06:44 36.3 C L 71 18 130/77 98 01/04/21 02:56 36.7 C 69 20 151/79 H 99 Laboratory Results [facility] 01/04/21 07:45 Sodium 138 Potassium 4.3 Chloride 104 Carbon Dioxide 30 BUN 26 H Creatinine 1.45 H Glucose 143 H Calcium 9.6
[2021-01-04] MEDS: ATORVASTATIN 40 MG TAB PO SCH (20:55)
[2021-01-05] MEDS: DAPTOmycin 650 MG in SYRINGE 0 ML IV SCH (01:42)
[2021-01-05] MEDS: HYDROmorphone INJ 0.5 MG/0.5 ML SYR IV PRN ×4 (03:03→16:06)
[2021-01-05] MEDS: HEPARIN SODIUM/DEXTROSE 25,000 UNITS/500 ML BAG IV SCH ×2 (05:41→16:51)
[2021-01-05] MEDS: LEVOTHYROXINE SODIUM 88 MCG TABLET PO SCH (05:42)
[2021-01-05 07:10] LABS: Hemoglobin 10.9 g/dL (14.0-18.0); Mean Corpuscular Hemoglobin 26.6 pg (25-34); Mean Corpuscular Hgb Conc 30.3 g/dL (32-36); Mean Corpuscular Volume 87.8 fL (80-100); Mean Platelet Volume 9.4 fL (7.4-10.4); Platelet Count 436 K/uL (130-400); RDW Coefficient of Variation 16.9 % (11.5-14.5); RDW Standard Deviation 54.7 fL (36.4-46.3); White Blood Count 9.62 K/uL (4.8-10.8)
[2021-01-05 07:39] LABS: BUN Creatinine Ratio 17.1 (10-20); Calcium 9.8 mg/dl (8.5-10.1); Creatinine Clr Calc Pharmacy 85.9 ml/min; Est GFR (African American) 62.6 ml/min; Potassium 4.2 mmol/L (3.5-5.1)
[2021-01-05] MEDS: ASPIRIN 81 MG ECTAB PO SCH (07:55)
[2021-01-05] MEDS: SPIRONOLACTONE 25 MG TAB PO SCH (07:55)
[2021-01-05] MEDS: POTASSIUM CHLORIDE CRTAB 20 MEQ TABCR PO SCH (07:55)
[2021-01-05] MEDS: METOPROLOL SUCC 50MG EXT REL TAB PO SCH ×2 (07:55→20:10)
[2021-01-05 07:56] LABS: Partial Thromboplastin Time 53.5 Seconds (21.0-31.0)
[2021-01-05] MEDS: LORATADINE 10 MG TAB PO SCH (07:56)
[2021-01-05] MEDS: MAGNESIUM OXIDE 400 MG TAB PO SCH (07:56)
[2021-01-05] MEDS: DOCUSATE SODIUM/SENNA 50/8.6MG TAB PO SCH ×2 (07:57→20:12)
[2021-01-05] MEDS: HYOSCYAMINE SULFATE 0.125 MG TAB PO SCH ×3 (07:57→20:10)
[2021-01-05] MEDS: GABAPENTIN 300 MG CAP PO SCH ×3 (07:57→20:10)
[2021-01-05] MEDS: FLUoxetine HCL 10 MG CAP PO SCH (07:59)
[2021-01-05] MEDS: PANTOprazole 40 MG TAB PO SCH (07:59)
[2021-01-05] MEDS: METOPROLOL SUCC 25MG EXT REL TAB PO SCH ×2 (08:01→20:12)
[2021-01-05] MEDS: CLOBETASOL SCH ×3 (08:06→23:53)
[2021-01-05] MEDS: DICLOFENAC SOD 1% GEL 100 GM TUBE EXT SCH ×2 (08:06→20:10)
[2021-01-05] MEDS: FLUTICASONE PROPIONATE NA SPR 16 GM BTL SCH ×2 (08:07→20:09)
[2021-01-05] MEDS: FLUTICASONE/VILANTEROL 200/25MCG 14 PUFFS/INHALER INH SCH (08:08)
[2021-01-05] MEDS: TORSEMIDE 20 MG TAB PO SCH ×2 (08:08→17:51)
[2021-01-05] MEDS: NovoLOG INSULIN PUMP SCH ×4 (08:11→20:12)
[2021-01-05] MEDS: INSULIN ASPART 100 UNITS/ML VIAL SC PRN ×3 (08:13→20:13)
--- NOTE | 2021-01-05 16:50 | Hospitalist Progress Note ---
Date of Service January 05, 2021 Assessment & Plan (1) Acute osteomyelitis of left foot: (2) Acute pain of left foot: (3) Diabetic infection of left foot: (4) Diabetic ulcer of left foot associated with type 2 diabetes mellitus, with fat layer exposed: Plan: Acute Osteomyelitis Severe Charcot arthropathy with multifocal osteomyelitis left hindfoot/midfoot with midfoot dissociation --Foot MRI 12/14/20:Large plantar ulcer of the lateral midfoot forefoot junction with extensive cellulitis. Deep tissue gas is likely secondary to direct extension from the wound. Gas forming organism could appear similarly. No drainable abscess. Extensive osteomyelitis throughout the forefoot and midfoot as above with articular and bony destruction resulting in dorsal dislocation of the forefoot. 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 Associated changes of Charcot neuropathy may also be present. These findings are new from 08/01/2020. --Arterial Doppler 12/17/20:No evidence for arterial occlusion within the left lower extremity. Monophasic waveforms seen within the left superficial femoral, popliteal, and calf arteries suggestive of diffuse atherosclerotic disease. However, no elevated velocities to suggest stenosis at this time. -Patient was hospitalized for same issue previously--patient declined surgery at the time and was discharged home on IV daptomycin -Wound culture from Dec 13 growing-100 bacterium, Camila albicans/dubliniensis -Blood Cx: No growth -Continue Daptomycin for now -Appreciate Orthopedics/Vascular Surgery Input -Will need AKA -Pain control, wound care -Given high risk for surgery with multiple comorbidities, vascular surgery recommended transfer to tertiary care facility for surgery Patient is accepted at [facility] for further care. Accepting Physician: Dr.Juan Segura Plan to transfer when bed available--Likely tomorrow NSVT H/O SVT S/P AICD Patient had asymptomatic 8 beats of VT Continue metoprolol Discussed with cable television program director on-call We will plan to increase metoprolol dose if any recurrence Monitor on telemetry No recurrence Depression Anxiety Previously followed with psychiatry as outpatient Denies any suicidal ideation Appreciate psychiatry input Consider to start fluoxetine after surgery Constipation Continue bowel regimen (5) T2DM (type 2 diabetes mellitus): Plan: Hemoglobin A1c is 8.1. Continue Insulin therapy Monitor BGs Appreciate glycemic Pharmacist help (6) Ischemic cardiomyopathy: (7) S/P ICD (internal cardiac defibrillator) procedure: (8) Chronic diastolic heart failure: Plan: Continue home diuretics-Aldactone, torsemide Continue metoprolol succinate (9) Atrial fibrillation: Plan: Continue Metoprolol Coumadin on hold as planned for surgery Continue IV heparin for now (10) NINA on CPAP: Plan: CPAP at bedtime (11) CAD (coronary artery disease): Plan: Continue aspirin, statin (12) Morbid obesity: Plan: BMI: 45 (13) DVT prophylaxis: Plan: Heparin drip Code Status Full Code Disposition Plan to transfer to [facility] when bed available Admission and Anticipated Discharge Date Admission Date: December 28, 2020 Subjective Patient is seen and examined at bedside Left leg pain is controlled No new complaints Discussed with Psychiatry today Denies chest pain, dyspnea, dizziness, nausea, abdominal pain Review of Systems Review of Systems: All systems reviewed & are unremarkable except as noted in Subjective Physical Exam Physical Exam: Physical Exam: Vitals signs as noted above General Appearance:Morbidly Obese, no apparent distress Head: normocephalic, Atraumatic Eyes: normal inspection, EOMI Neck: supple, Trachea midline Respiratory/Chest: Normal breath sounds, CTA Cardiovascular: S1, S2, No murmur Abdomen/GI:Soft, Non tender, Bowel sounds present Extremities/Musculoskeletal:normal inspection, B/L LE edema, +Venous stasis changes, +B/L feet in dressing Neurologic/Psych:AAOX3, grossly no focal neurological deficits Skin: normal color, warm Results & Data Results & Data ([facility]) Vital Signs (Past 12 Hours) Vital Signs Temp Pulse Pulse Resp BP Pulse Ox 01/05/21 16:33 36.2 C L 65 20 108/66 98 01/05/21 15:00 64 01/05/21 11:33 36.6 C 71 20 124/72 98 01/05/21 07:43 36.8 C 66 20 115/70 98 01/05/21 07:00 64 Laboratory Results Short CBC 01/05/21 Range/Units 06:33 WBC 9.62 (4.8-10.8) K/uL Hgb 10.9 L (14.0-18.0) g/dL Hct 36.0 L (42-52) % Plt Count 436 H (130-400) K/uL BMP 01/05/21 06:33 Sodium 138 Potassium 4.2 Chloride 103 Carbon Dioxide 30 BUN 24 H Creatinine 1.43 H Glucose 130 H Calcium 9.8 Cardiac Enzymes 01/05/21 Range/Units 13:55 Total Creatine Kinase 36 L (39-308) U/L
[2021-01-05] MEDS: HYDROCODONE/ACETAMOPHEN 5/325MG TAB PO PRN (17:28)
--- NOTE | 2021-01-05 17:56 | Psychiatric Progress Note ---
Date of Service January 05, 2021 Impression / Recommendations Impression per Dr. Leblanc: 55-year-old male with significant medical problems in addition to significant social stressors including recent divorce, financial stress patient will benefit from psychopharmacologic intervention in order to address his anxiety. He will also benefit from therapy services. 01/05/21--ongoing psychosocial and medical stressors (1) Anxiety: reviewed with patient that Prozac will not result in immediate improvement and given pending surgery, would hold the trial initiation until after (given effect on platelets). Dr. Kay updated. Patient prefers to not start the medication at this time. Interval History Identifying Information 55 yo male awaiting transfer to [facility] for amputation. Seen as recent rx Prozac and responsibility for clinical care of consult service transitioned from Dr. Leblanc to myself. Chief Complaint "yeah I'm mad that I came to the hospital but will do this, not sure about medicine". Subjective Subjective Patient was seen & assessed and interval progress reviewed via chart and with liaison. Patient focussed on cost of previous hospitalizations, COVID "messing with my head but I don't want to go into all that", "my cheating and then leaving me, med not going to fix that". ROS: reports irritability, fatigue, denies SI/HI/mixon. Procedures Performed Operation Date: 01/08/21 08:00 <No data on this case meets the specified criteria> Physical Exam Psychiatric Orientation: alert and oriented x 3 Apperance: + disheveled Eye Contact: + fair eye contact Motor Behavior: no abnormal motor movements Speech: normal rate/rhythm/volume of speech Affect: + depressed affect Mood: + irritable mood Thought Process: goal directed thought process Thought Content: reality based without delusions Suicidal Thoughts: denies suicidal thoughts Homicidal Thoughts: denies homicidal thoughts Hallucinations: no auditory hallucinations and no visual hallucinations Cognition: recent memory grossly intact Estimated Intelligence: consistent with education level Insight: + fair insight Judgement: + fair judgement Vital Signs (Past 24 Hours) Last Vital Signs Temp 36.2 C L 01/05/21 16:33 Pulse 65 01/05/21 16:33 Resp 20 01/05/21 16:33 BP 108/66 01/05/21 16:33 Pulse Ox 98 01/05/21 16:33 Results & Data ([facility]) Laboratory Results Laboratory Results - last 24 hr 01/04/21 01/05/21 01/05/21 20:02 06:33 06:33 WBC 9.62 RBC 4.10 L Hgb 10.9 L Hct 36.0 L MCV 87.8 MCH 26.6 MCHC 30.3 L RDW Std Deviation 54.7 H RDW Coeff of Мария 16.9 H Plt Count 436 H MPV 9.4 APTT PTT Ratio Sodium 138 Potassium 4.2 Chloride 103 Carbon Dioxide 30 Anion Gap 4.0 BUN 24 H Creatinine 1.43 H Est Cr Clr Drug Dosing 85.9 Est GFR ( Amer) 62.6 Est GFR (Non-Af Amer) 54.0 BUN/Creatinine Ratio 17.1 Glucose 130 H POC Glucose 198 H Calcium 9.8 Total Creatine Kinase 01/05/21 01/05/21 01/05/21 06:33 07:38 11:32 WBC RBC Hgb Hct MCV MCH MCHC RDW Std Deviation RDW Coeff of Мария Plt Count MPV APTT 53.5 H* PTT Ratio 2.0 Sodium Potassium Chloride Carbon Dioxide Anion Gap BUN Creatinine Est Cr Clr Drug Dosing Est GFR ( Amer) Est GFR (Non-Af Amer) BUN/Creatinine Ratio Glucose POC Glucose 129 H 140 H Calcium Total Creatine Kinase 01/05/21 01/05/21 13:55 16:32 WBC RBC Hgb Hct MCV MCH MCHC RDW Std Deviation RDW Coeff of Мария Plt Count MPV APTT PTT Ratio Sodium Potassium Chloride Carbon Dioxide Anion Gap BUN Creatinine Est Cr Clr Drug Dosing Est GFR ( Amer) Est GFR (Non-Af Amer) BUN/Creatinine Ratio Glucose POC Glucose 127 H Calcium Total Creatine Kinase 36 L Current Inpatient Medications Current Inpatient Medications: Current Inpatient Medications Acetaminophen (Acetaminophen 325 Mg Tab) 650 mg PO Q4H PRN PRN Reason: Pain or Fever Stop: 01/28/21 00:44 Hydrocodone Bitart/Acetaminophen (Hydrocodone/Acetamophen 5/325mg Tab) 1 tab PO Q4H PRN PRN Reason: Moderate Pain Stop: 01/12/21 01:23 Last Admin: 01/05/21 17:28 Dose: 1 tab Documented by: Albuterol (Albuterol Hfa 8 Gm Inhaler) 2 puffs INH QIDR PRN PRN Reason: SHORT OF BREATH Stop: 01/28/21 00:44 Aspirin (Aspirin 81 Mg Ectab) 81 mg PO QAM [facility] Stop: 01/28/21 08:59 Last Admin: 01/05/21 07:55 Dose: 81 mg Documented by: Atorvastatin Calcium (Atorvastatin 40 Mg Tab) 80 mg PO HS [facility] Stop: 01/28/21 20:59 Last Admin: 01/04/21 20:55 Dose: 80 mg Documented by: Bisacodyl (Bisacodyl 10 Mg Supp) 10 mg WA DAILY PRN PRN Reason: Constipation Stop: 02/02/21 12:29 Dextrose (Dextrose 50% 50 Ml Syringe) 25 - 50 ml IV UD PRN; Protocol PRN Reason: Hypoglycemia Protocol Stop: 01/28/21 01:14 Diclofenac Sodium (Diclofenac Sod 1% Gel 100 Gm Tube) 4 gm EXT BID [facility] Stop: 01/28/21 08:59 Last Admin: 01/05/21 08:06 Dose: Not Given Documented by: Ergocalciferol (Ergocalciferol 50,000 Units 1250 Mcg Cap) 50,000 units PO Tu@0900 [facility] Stop: 01/31/21 08:59 Last Admin: 01/01/21 08:45 Dose: 50,000 units Documented by: Fluoxetine HCl (Fluoxetine Hcl 10 Mg Cap) 10 mg PO QAM [facility] Stop: 02/03/21 08:59 Last Admin: 01/05/21 07:59 Dose: 10 mg Documented by: Fluticasone Propionate (Fluticasone Propionate Na Spr 16 Gm Btl) 2 sprays NA BID [facility] Stop: 01/28/21 08:59 Last Admin: 01/05/21 08:07 Dose: 2 sprays Documented by: Fluticasone/Vilanterol (Fluticasone/Vilanterol 200/25mcg 14 Puffs/Inhaler) 1 puffs INH DAILY [facility]; Protocol Stop: 01/28/21 08:59 Last Admin: 01/05/21 08:08 Dose: 1 puffs Documented by: Gabapentin (Gabapentin 300 Mg Cap) 300 mg PO TID [facility] Stop: 01/28/21 01:29 Last Admin: 01/05/21 13:59 Dose: 300 mg Documented by: Glucagon (Glucagon For Inj 1 Mg Vial) 1 mg SQ UD PRN; Protocol PRN Reason: Hypoglycemia Protocol Stop: 01/28/21 01:14 Glucose (Glucose 40% Gel 15 Gm Tube) 15 - 30 gm PO UD PRN; Protocol PRN Reason: Hypoglycemia Protocol Stop: 01/28/21 01:14 Glucose (Glucose 10 Tabs/Tube) 4 - 8 tabs PO UD PRN; Protocol PRN Reason: Hypoglycemia Protocol Stop: 01/28/21 01:14 Hydromorphone HCl (Hydromorphone Inj 0.5 Mg/0.5 Ml Syr) 0.5 mg IV Q2H PRN PRN Reason: Severe Pain Stop: 01/12/21 23:58 Last Admin: 01/05/21 16:06 Dose: 0.5 mg Documented by: Hyoscyamine (Hyoscyamine Sulfate 0.125 Mg Tab) 0.125 mg PO TID [facility] Stop: 01/28/21 01:14 Last Admin: 01/05/21 13:59 Dose: 0.125 mg Documented by: Daptomycin 650 mg/ Syringe 13 mls @ 6.5 mls/min IV Q24H [facility]; Protocol Stop: 02/09/21 01:59 Last Admin: 01/05/21 01:42 Dose: 6.5 mls/min Documented by: Heparin Sodium/Dextrose (Heparin Sodium/Dextrose) 25,000 units in 500 mls @ 48 mls/hr IV .[id number] [facility]; Protocol Stop: 01/28/21 07:59 Last Admin: 01/05/21 16:51 Dose: 2,400 units/hr, 48 mls/hr Documented by: Insulin Aspart (Novolog Insulin Pump) 1 ea N/A ACHS [facility]; Protocol Stop: 01/28/21 07:29 Last Admin: 01/05/21 16:47 Dose: 1 ea Documented by: Insulin Aspart (Insulin Aspart 100 Units/Ml Vial) 0 units SC PRN PRN PRN Reason: REFILL Stop: 01/28/21 01:14 Last Admin: 01/05/21 16:49 Dose: 18.18 units Documented by: Lactic Acid (Ammonium Lactate 12% Lotion 225 Gm Btl) 1 gm EXT DAILY PRN PRN Reason: Dry Skin Stop: 01/28/21 00:44 Levothyroxine Sodium (Levothyroxine Sodium 88 Mcg Tablet) 88 mcg PO DAILYBB [facility] Stop: 01/28/21 06:29 Last Admin: 01/05/21 05:42 Dose: 88 mcg Documented by: Loratadine (Loratadine 10 Mg Tab) [facility] [place] [facility] [place]: 01/29/21 08:59 Last Admin: 01/05/21 07:56 Dose: 10 mg Documented by: Lorazepam (Lorazepam 0.5 Mg Tab) 0.5 mg PO QID PRN PRN Reason: Anxiety/Insomnia Stop: 02/01/21 23:05 Last Admin: 01/02/21 23:30 Dose: 0.5 mg Documented by: Magnesium Oxide (Magnesium Oxide 400 Mg Tab) 400 [facility] [place]: 01/28/21 08:59 Last Admin: 01/05/21 07:56 Dose: 400 mg Documented by: Metoprolol Succinate (Metoprolol Succ 50mg Ext Rel Tab) 50 mg PO BID [facility] Stop: 01/28/21 01:29 Last Admin: 01/05/21 07:55 Dose: 50 mg Documented by: Metoprolol Succinate (Metoprolol Succ 25mg Ext Rel Tab) 25 mg PO BID [facility] Stop: 01/28/21 01:29 Last Admin: 01/05/21 08:01 Dose: 25 mg Documented by: Miscellaneous (Clobetasol Cream: Order Awaiting Action) 1 ea N/A QS [facility] Stop: 01/28/21 07:59 Last Admin: 01/05/21 16:28 Dose: Not Given Documented by: Miscellaneous (Carbohydrates For Hypoglycemia ) 15 - 30 gm PO UD PRN PRN Reason: Hypoglycemia Treatment Stop: 01/28/21 01:14 Miscellaneous Information (Daptomycin Consult Active) 1 ea N/A UD PRN PRN Reason: Consult Stop: 01/28/21 00:44 Miscellaneous Information (Pharmacy Glycemic Mgmt Consult) 1 ea N/A UD PRN PRN Reason: Consult Stop: 01/28/21 00:44 Nitroglycerin (Nitroglycerin Sl 0.4 Mg/Tab Tab) 0.4 mg SL UD PRN PRN Reason: Chest Pain Stop: 01/28/21 00:44 Ondansetron HCl (Ondansetron Inj 2 Mg/Ml 2 Ml Vial) 4 mg IV Q6H PRN PRN Reason: Nausea Stop: 01/28/21 00:44 Pantoprazole Sodium (Pantoprazole 40 Mg Tab) 40 mg PO [facility]; Protocol Stop: 01/28/21 08:59 Last Admin: 01/05/21 07:59 Dose: 40 mg Documented by: Polyethylene Glycol (Polyethylene (Miralax) 17 Gm Pack) 17 gm PO DAILY PRN PRN Reason: Constipation Stop: 01/28/21 00:44 Last Admin: 01/03/21 12:52 Dose: 17 gm Documented by: Potassium Chloride (Potassium Chloride Crtab 20 Meq Tabcr) 20 meq PO DAILY [facility] Stop: 01/28/21 08:59 Last Admin: 01/05/21 07:55 Dose: 20 meq Documented by: Senna/Docusate Sodium (Docusate Sodium/Senna 50/8.6mg Tab) 1 tab PO BID [facility] Stop: 02/02/21 12:29 Last Admin: 01/05/21 07:57 Dose: 1 tab Documented by: Spironolactone (Spironolactone 25 Mg Tab) 25 mg PO DAILY [facility] Stop: 01/28/21 08:59 Last Admin: 01/05/21 07:55 Dose: 25 mg Documented by: Torsemide (Torsemide 20 Mg Tab) 20 mg PO BID17 [facility] Stop: 01/28/21 08:59 Last Admin: 01/05/21 08:08 Dose: 20 mg Documented by: Tramadol HCl (Tramadol Hcl 50 Mg Tablet) 50 mg PO Q6H PRN PRN Reason: pain Stop: 01/28/21 00:44
[2021-01-05] MEDS: ATORVASTATIN 40 MG TAB PO SCH (20:12)
[2021-01-06] MEDS: DAPTOmycin 650 MG in SYRINGE 0 ML IV SCH (01:13)
[2021-01-06] MEDS: HYDROCODONE/ACETAMOPHEN 5/325MG TAB PO PRN ×2 (01:13→06:13)
[2021-01-06] MEDS: HEPARIN SODIUM/DEXTROSE 25,000 UNITS/500 ML BAG IV SCH ×2 (03:18→14:16)
[2021-01-06] MEDS: HYDROmorphone INJ 0.5 MG/0.5 ML SYR IV PRN ×5 (03:19→22:20)
[2021-01-06 06:08] LABS: Hematocrit (blood only) 35.1 % (42-52); Hemoglobin 10.6 g/dL (14.0-18.0); Mean Corpuscular Hemoglobin 26.6 pg (25-34); Mean Corpuscular Hgb Conc 30.2 g/dL (32-36); Mean Platelet Volume 9.5 fL (7.4-10.4); Platelet Count 416 K/uL (130-400); RDW Standard Deviation 55.1 fL (36.4-46.3); Red Blood Count 3.99 M/uL (4.7-6.1); White Blood Count 8.63 K/uL (4.8-10.8)
[2021-01-06] MEDS: LEVOTHYROXINE SODIUM 88 MCG TABLET PO SCH (06:13)
[2021-01-06 06:28] LABS: Partial Thromboplastin Ratio 2.5
[2021-01-06 06:36] LABS: BUN Creatinine Ratio 18.4 (10-20); Calcium 9.2 mg/dl (8.5-10.1); Creatinine Clr Calc Pharmacy 84.7 ml/min; Est GFR (African American) 61.5 ml/min; Est GFR (Non-African American) 53.1 ml/min; Potassium 4.1 mmol/L (3.5-5.1)
[2021-01-06] MEDS: TORSEMIDE 20 MG TAB PO SCH ×2 (08:13→17:21)
[2021-01-06] MEDS: DOCUSATE SODIUM/SENNA 50/8.6MG TAB PO SCH ×2 (08:13→20:09)
[2021-01-06] MEDS: PANTOprazole 40 MG TAB PO SCH (08:13)
[2021-01-06] MEDS: FLUTICASONE/VILANTEROL 200/25MCG 14 PUFFS/INHALER INH SCH (08:14)
[2021-01-06] MEDS: METOPROLOL SUCC 50MG EXT REL TAB PO SCH ×2 (08:14→20:09)
[2021-01-06] MEDS: GABAPENTIN 300 MG CAP PO SCH ×3 (08:14→20:10)
[2021-01-06] MEDS: LORATADINE 10 MG TAB PO SCH (08:14)
[2021-01-06] MEDS: SPIRONOLACTONE 25 MG TAB PO SCH (08:14)
[2021-01-06] MEDS: ASPIRIN 81 MG ECTAB PO SCH (08:14)
[2021-01-06] MEDS: MAGNESIUM OXIDE 400 MG TAB PO SCH (08:14)
[2021-01-06] MEDS: HYOSCYAMINE SULFATE 0.125 MG TAB PO SCH ×3 (08:15→20:09)
[2021-01-06] MEDS: DICLOFENAC SOD 1% GEL 100 GM TUBE EXT SCH ×2 (08:15→20:07)
[2021-01-06] MEDS: FLUTICASONE PROPIONATE NA SPR 16 GM BTL SCH ×2 (08:15→20:09)
[2021-01-06] MEDS: POTASSIUM CHLORIDE CRTAB 20 MEQ TABCR PO SCH (08:16)
[2021-01-06] MEDS: NovoLOG INSULIN PUMP SCH ×4 (08:17→20:11)
[2021-01-06] MEDS: METOPROLOL SUCC 25MG EXT REL TAB PO SCH ×2 (08:50→20:10)
[2021-01-06] MEDS: CLOBETASOL SCH ×3 (09:04→22:19)
--- NOTE | 2021-01-06 10:07 | Hospitalist Progress Note ---
Date of Service January 06, 2021 Assessment & Plan (1) Acute osteomyelitis of left foot: (2) Acute pain of left foot: (3) Diabetic infection of left foot: (4) Diabetic ulcer of left foot associated with type 2 diabetes mellitus, with fat layer exposed: Plan: Acute Osteomyelitis Severe Charcot arthropathy with multifocal osteomyelitis left hindfoot/midfoot with midfoot dissociation --Foot MRI 12/14/20:Large plantar ulcer of the lateral midfoot forefoot junction with extensive cellulitis. Deep tissue gas is likely secondary to direct extension from the wound. Gas forming organism could appear similarly. No drainable abscess. Extensive osteomyelitis throughout the forefoot and midfoot as above with articular and bony destruction resulting in dorsal dislocation of the forefoot. 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 Associated changes of Charcot neuropathy may also be present. These findings are new from 08/01/2020. --Arterial Doppler 12/17/20:No evidence for arterial occlusion within the left lower extremity. Monophasic waveforms seen within the left superficial femoral, popliteal, and calf arteries suggestive of diffuse atherosclerotic disease. However, no elevated velocities to suggest stenosis at this time. -Patient was hospitalized for same issue previously--patient declined surgery at the time and was discharged home on IV daptomycin -Wound culture from Dec 13 growing-100 bacterium, Camila albicans/dubliniensis -Blood Cx: No growth -Continue Daptomycin for now -Appreciate Orthopedics/Vascular Surgery Input -Will need AKA -Pain control, wound care -Given high risk for surgery with multiple comorbidities, vascular surgery recommended transfer to tertiary care facility for surgery Patient is accepted at [facility] for further care. Accepting Physician: Dr.Juan Segura Plan to transfer to [facility] when bed available Hold Statin while on Daptomycin NSVT H/O SVT S/P AICD Patient had asymptomatic 8 beats of VT Continue metoprolol Discussed with bioinformatics associate on-call We will plan to increase metoprolol dose if any recurrence Monitor on telemetry No recurrence on monitor Depression Anxiety Previously followed with psychiatry as outpatient Denies any suicidal ideation Appreciate psychiatry input Consider to start fluoxetine after surgery Constipation Continue bowel regimen (5) T2DM (type 2 diabetes mellitus): Plan: Hemoglobin A1c is 8.1. Continue Insulin therapy Monitor BGs Appreciate glycemic Pharmacist help (6) Ischemic cardiomyopathy: (7) S/P ICD (internal cardiac defibrillator) procedure: (8) Chronic diastolic heart failure: Plan: Continue home diuretics-Aldactone, torsemide Continue metoprolol succinate (9) Atrial fibrillation: Plan: Continue Metoprolol Coumadin on hold as planned for surgery Continue IV heparin for now (10) NINA on CPAP: Plan: CPAP at bedtime (11) CAD (coronary artery disease): Plan: Continue aspirin, statin (12) Morbid obesity: Plan: BMI: 45 (13) DVT prophylaxis: Plan: Heparin drip Code Status Full Code Disposition Plan to transfer to [facility] when bed available Admission and Anticipated Discharge Date Admission Date: December 28, 2020 Subjective Patient is seen and examined at bedside States having Left leg pain overnight Sitting in chair during my encounter Denies chest pain, dyspnea, dizziness, nausea, abdominal pain Plan to discharge to [facility] when bed available Review of Systems Review of Systems: All systems reviewed & are unremarkable except as noted in Subjective Physical Exam Physical Exam: Physical Exam: Vitals signs as noted above General Appearance:Morbidly Obese, no apparent distress Head: normocephalic, Atraumatic Eyes: normal inspection, EOMI Neck: supple, Trachea midline Respiratory/Chest: Normal breath sounds, CTA Cardiovascular: S1, S2, No murmur Abdomen/GI:Soft, Non tender, Bowel sounds present Extremities/Musculoskeletal:normal inspection, B/L LE edema, +Venous stasis changes, +B/L feet in dressing Neurologic/Psych:AAOX3, grossly no focal neurological deficits Skin: normal color, warm Results & Data Results & Data ([facility]) Vital Signs (Past 12 Hours) Vital Signs Temp Pulse Pulse Resp BP Pulse Ox 01/06/21 08:13 75 128/77 01/06/21 07:00 36.6 C 61 54 L 17 118/74 97 01/06/21 02:35 36.5 C 60 17 122/76 96 01/05/21 23:20 36.5 C 68 18 114/68 99 01/05/21 22:19 63 Laboratory Results Short CBC 01/06/21 Range/Units 05:28 WBC 8.63 (4.8-10.8) K/uL Hgb 10.6 L (14.0-18.0) g/dL Hct 35.1 L (42-52) % Plt Count 416 H (130-400) K/uL BMP 01/06/21 05:28 Sodium 137 Potassium 4.1 Chloride 103 Carbon Dioxide 28 BUN 27 H Creatinine 1.45 H Glucose 151 H Calcium 9.2 Cardiac Enzymes 01/05/21 Range/Units 13:55 Total Creatine Kinase 36 L (39-308) U/L
[2021-01-06] MEDS: INSULIN ASPART 100 UNITS/ML VIAL SC PRN (20:11)
[2021-01-07] MEDS: HEPARIN SODIUM/DEXTROSE 25,000 UNITS/500 ML BAG IV SCH ×3 (01:43→23:42)
[2021-01-07] MEDS: DAPTOmycin 650 MG in SYRINGE 0 ML IV SCH (01:53)
[2021-01-07] MEDS: HYDROmorphone INJ 0.5 MG/0.5 ML SYR IV PRN ×4 (04:24→21:38)
[2021-01-07] MEDS: LEVOTHYROXINE SODIUM 88 MCG TABLET PO SCH (06:15)
[2021-01-07] MEDS: LORATADINE 10 MG TAB PO SCH (07:57)
[2021-01-07] MEDS: TORSEMIDE 20 MG TAB PO SCH ×2 (07:57→17:13)
[2021-01-07] MEDS: PANTOprazole 40 MG TAB PO SCH (07:57)
[2021-01-07] MEDS: ASPIRIN 81 MG ECTAB PO SCH (07:57)
[2021-01-07] MEDS: METOPROLOL SUCC 50MG EXT REL TAB PO SCH ×2 (07:57→21:39)
[2021-01-07] MEDS: METOPROLOL SUCC 25MG EXT REL TAB PO SCH ×2 (07:57→21:41)
[2021-01-07] MEDS: HYDROCODONE/ACETAMOPHEN 5/325MG TAB PO PRN ×2 (07:57→13:26)
[2021-01-07] MEDS: GABAPENTIN 300 MG CAP PO SCH ×3 (07:57→21:42)
[2021-01-07] MEDS: HYOSCYAMINE SULFATE 0.125 MG TAB PO SCH ×3 (07:57→21:41)
[2021-01-07] MEDS: MAGNESIUM OXIDE 400 MG TAB PO SCH (07:57)
[2021-01-07] MEDS: SPIRONOLACTONE 25 MG TAB PO SCH (07:57)
[2021-01-07] MEDS: DOCUSATE SODIUM/SENNA 50/8.6MG TAB PO SCH ×2 (07:57→21:40)
[2021-01-07] MEDS: POTASSIUM CHLORIDE CRTAB 20 MEQ TABCR PO SCH (07:57)
[2021-01-07] MEDS: DICLOFENAC SOD 1% GEL 100 GM TUBE EXT SCH ×2 (07:58→21:40)
[2021-01-07] MEDS: FLUTICASONE/VILANTEROL 200/25MCG 14 PUFFS/INHALER INH SCH (07:58)
[2021-01-07] MEDS: FLUTICASONE PROPIONATE NA SPR 16 GM BTL SCH ×2 (07:59→21:39)
[2021-01-07] MEDS: CLOBETASOL SCH ×3 (07:59→23:01)
[2021-01-07] MEDS: NovoLOG INSULIN PUMP SCH ×4 (08:02→21:38)
--- NOTE | 2021-01-07 09:03 | Pharmacy Report ---
Pharmacy Glycemic Short Note 2 - Date of Service January 07, 2021 - Glycemic Short BSG Results (Last 24 hours): 01/06/21 01/06/21 01/06/21 11:11 16:39 20:06 POC Glucose 150 H 116 H 145 H 01/07/21 08:00 POC Glucose 135 H OUTPATIENT ANTIDIABETIC REGIMEN: * Insulin pump (Novolog) - 2 units/hr as basal plus CF 20 CR 4 * HbA1c: 8.5% (12/14/20) ASSESSMENT: 01/07/21 * BSGs well controlled over past 4 days with basal rate increase. Last 24 hours show BSGs of [phone] mg/dL with fasting of 135 mg/dL. * Continue current regimen. 01/03 * BSGs well controlled over the past 24 hrs with increase in basal insulin rate on pump * BSGs [phone] mg/dl * Still awaiting possible surgery next week. Goal is to maintain BSGs <180 mg/dl (ideally <150 mg/dl) to prevent post-op infectious complications. 01/02 * BSGs trending up over past 24 hours with multiple readings in 200s * BSGs not being obtained with our meter and thus not showing up in [employer], patient agreeable to checks with our meter * Discussed with community nutrition educator, basal rate increased by ~10% to 2.2 units/hr given upward BSG trend and elevated outpatient BSGs * Patient scheduled for left [id number]-amputation next week * May need to potentially adjust rate again if/when NPO for surgery Background: * Mr Lyle is a 55 y/o M with a PMH of T2DM controlled on insulin pump who presents for amputation. * Pharmacy consulted. Patient currently on insulin pump. Historically does well while on pump inhouse. Continue for now PLAN FOR INPATIENT GLYCEMIC CONTROL: Pt is to manage BSGs with insulin pump per outpatient settings. * RN will have patient read and sign agreement CF [id number] Insulin Pump Therapy Patient Agreement. * RN will provide and explain form [id number] Flowsheet for Patient * Patient will document their insulin dose given on [id number] which is kept at the bedside, available to caregivers upon request, and which becomes part of the p [facility] medical record. * Basal rate increased today to 2.2 unit/hr If at any time the patients condition evidences that he/she is not able to manage the insulin pump (i.e. frequent hypo/hyperglycemia) Pharmacy will assume glycemic control by discontinuing the pump & managing with SQ basal bolus insulin regimen for the interim. PLAN FOR DISCHARGE: * HbA1c of 8.5% is elevated - goal HbA1c should be less than 7% * Basal rate increased to 2.2 unit/hr while inpatient, should continue this at time of discharge * Ensure prompt outpatient follow-up with managing provider for further insulin pump adjustments
[2021-01-07 09:09] LABS: Partial Thromboplastin Ratio 2.5
[2021-01-07 10:26] LABS: Partial Thromboplastin Time 64.9 Seconds (21.0-31.0)
[2021-01-07] MEDS: POLYETHYLENE (MIRALAX) 17 GM PACK PO PRN (10:48)
[2021-01-07] MEDS ORDERED: bisacodyL 10 MG SUPP PR PRN (12:47)
[2021-01-07] MEDS ORDERED: bisacodyL 10 MG SUPP PR ONE (16:42)
--- NOTE | 2021-01-07 16:44 | Hospitalist Progress Note ---
Date of Service January 07, 2021 Assessment & Plan (1) Acute osteomyelitis of left foot: (2) Acute pain of left foot: (3) Diabetic infection of left foot: (4) Diabetic ulcer of left foot associated with type 2 diabetes mellitus, with fat layer exposed: Plan: Acute Osteomyelitis Severe Charcot arthropathy with multifocal osteomyelitis left hindfoot/midfoot with midfoot dissociation --Foot MRI 12/14/20:Large plantar ulcer of the lateral midfoot forefoot junction with extensive cellulitis. Deep tissue gas is likely secondary to direct extension from the wound. Gas forming organism could appear similarly. No drainable abscess. Extensive osteomyelitis throughout the forefoot and midfoot as above with articular and bony destruction resulting in dorsal dislocation of the forefoot. 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 Associated changes of Charcot neuropathy may also be present. These findings are new from 08/01/2020. --Arterial Doppler 12/17/20:No evidence for arterial occlusion within the left lower extremity. Monophasic waveforms seen within the left superficial femoral, popliteal, and calf arteries suggestive of diffuse atherosclerotic disease. However, no elevated velocities to suggest stenosis at this time. -Patient was hospitalized for same issue previously--patient declined surgery at the time and was discharged home on IV daptomycin -Wound culture from Dec 13 growing-100 bacterium, Camila albicans/dubliniensis -Blood Cx: No growth -Continue Daptomycin for now -Appreciate Orthopedics/Vascular Surgery Input -Will need AKA -Pain control, wound care -Given high risk for surgery with multiple comorbidities, vascular surgery recommended transfer to tertiary care facility for surgery Patient is accepted at [facility] for further care. Accepting Physician: Dr.Juan Segura Plan [place] [facility] [place] Hold Statin while on Daptomycin Waiting for placement NSVT H/O SVT S/P AICD Patient had asymptomatic 8 beats of VT Continue metoprolol Discussed with invoice checker on-call We will plan to increase metoprolol dose if any recurrence Monitor on telemetry No recurrence on monitor Depression Anxiety Previously followed with psychiatry as outpatient Denies any suicidal ideation Appreciate psychiatry input Consider to start fluoxetine after surgery Constipation Continue bowel regimen Minimize narcotics as able (5) T2DM (type 2 diabetes mellitus): Plan: Hemoglobin A1c is 8.1. Continue Insulin therapy Monitor BGs Appreciate glycemic Pharmacist help (6) Ischemic cardiomyopathy: (7) S/P ICD (internal cardiac defibrillator) procedure: (8) Chronic diastolic heart failure: Plan: Continue home diuretics-Aldactone, torsemide Continue metoprolol succinate (9) Atrial fibrillation: Plan: Continue Metoprolol Coumadin on hold as planned for surgery Continue IV heparin for now (10) NINA on CPAP: Plan: CPAP at bedtime (11) CAD (coronary artery disease): Plan: Continue aspirin, statin (12) Morbid obesity: Plan: BMI: 45 (13) DVT prophylaxis: Plan: Heparin drip Code Status Full Code Disposition Plan to transfer to [facility] when bed available Admission and Anticipated Discharge Date Admission Date: December 28, 2020 Subjective Patient is seen and examined at bedside Left leg pain is controlled Denies chest pain, dyspnea, dizziness, nausea, abdominal pain Reports constipation Waiting for placement Review of Systems Review of Systems: All systems reviewed & are unremarkable except as noted in Subjective Physical Exam Physical Exam: Physical Exam: Vitals signs as noted above General Appearance:Morbidly Obese, no apparent distress Head: normocephalic, Atraumatic Eyes: normal inspection, EOMI Neck: supple, Trachea midline Respiratory/Chest: Normal breath sounds, CTA Cardiovascular: S1, S2, No murmur Abdomen/GI:Soft, Non tender, Bowel sounds present Extremities/Musculoskeletal:normal inspection, B/L LE edema, +Venous stasis changes, +B/L feet in dressing Neurologic/Psych:AAOX3, grossly no focal neurological deficits Skin: normal color, warm Results & Data Results & Data ([facility]) Vital Signs (Past 12 Hours) Vital Signs Temp Pulse Pulse Resp BP Pulse Ox 01/07/21 15:43 36.6 C 66 20 128/69 97 01/07/21 15:00 69 01/07/21 11:50 36.7 C 67 18 149/78 H 98 01/07/21 07:05 36.8 C 61 18 117/72 98
[2021-01-07] MEDS ORDERED: POLYETHYLENE (MIRALAX) 17 GM PACK PO ONE (17:23)
--- NOTE | 2021-01-08 07:54 | Discharge Summary ---
Date of Service January 08, 2021 Admission HPI Per Admitting Provider CHIEF COMPLAINT: Left lower extremity infection. HISTORY OF PRESENT ILLNESS: This is a 55-year-old male with past medical history significant for chronic systolic and diastolic CHF, history of ischemic cardiomyopathy, CAD, history of SVT, AICD placement in 10/2019, paroxysmal atrial fibrillation, anticoagulation on Coumadin, history of DVT, hypertension, hyperlipidemia, chronic kidney disease stage III, baseline creatinine of 1.5- 1.7, history of obstructive sleep apnea, on BiPAP, history of asthma, history of insulin-dependent type 2 diabetes, diabetic peripheral neuropathy, hypothyroidism, chronic left nonhealing diabetic foot ulcer with diagnosis of osteomyelitis on recent admission. Currently at home. On last admission, supposed to be seen by surgery, but he went home, but he still is on IV dapto mycin. Saw family doctor and now decided to get amputation done and the patient was sent to the hospital. The patient complains of pain in the left leg, not ambulating much because of pain. Lives alone. Denies any fevers. Currently resting comfortably and hemodynamically stable. Denies any headaches. He says when he stands up, he has some dizziness. Complains of right ear pain that started like a few days back. He always has some blurred vision. No runny nose, no sore throat. No cough. Appetite is okay. No difficulty swallowing. No chest pain, no shortness of breath, no nausea, no abdominal pain, no diarrhea or constipation, no blood in stool or black stool. He says he feels like he is not emptying his bladder properly. No hematuria or burning micturition. Admission Exam Per Admitting Provider PHYSICAL EXAMINATION: GENERAL: The patient is morbidly obese, not in acute distress. VITAL SIGNS: Temperature 36.5, pulse 64, respiratory rate 20, blood pressure 124/69, oxygen 99% on room air. HEENT: Pupils equal, round and reactive to light. Oral mucosa moist. NECK: No JVD, no neck masses. CARDIOVASCULAR: S1 and S2 heard, regular rate and rhythm. No murmur, no gallop. RESPIRATORY SYSTEM: Normal AP diameter. No accessory muscle use. No wheezing, no crackles. ABDOMEN: Soft, bowel sounds present, nontender, no distention. CENTRAL NERVOUS SYSTEM: Cranial nerves II-XII grossly intact, nonfocal. EXTREMITIES: Bilateral lower extremity edema present with left lower extremity superficial wounds and erythema seen. Principal Diagnosis Acute Osteomyelitis Severe Charcot arthropathy NSVT Depression Discharge Data Allergies Allergy/AdvReac Type Severity Reaction Status Date / Time benzonatate AdvReac Intermediate choking, Verified 12/28/20 21:19 gagging Consultations 12/28/20 20:31 ED Decision to Admit Stat 12/29/20 08:00 Consult Vascular Surgery Routine 01/01/21 08:26 Consult Orthopedic Surgery Routine 01/02/21 14:01 Consult Anesthesiology Routine 01/03/21 11:23 Consult Psychiatry Routine Procedures Performed Operation Date: 01/08/21 08:00 <No data on this case meets the specified criteria> Hospital Course (1) Acute osteomyelitis of left foot: (2) Acute pain of left foot: (3) Diabetic infection of left foot: (4) Diabetic ulcer of left foot associated with type 2 diabetes mellitus, with fat layer exposed: Acute Osteomyelitis Severe Charcot arthropathy with multifocal osteomyelitis left hindfoot/midfoot with midfoot dissociation --Foot MRI 12/14/20:Large plantar ulcer of the lateral midfoot forefoot junction with extensive cellulitis. Deep tissue gas is likely secondary to direct extension from the wound. Gas forming organism could appear similarly. No drainable abscess. Extensive osteomyelitis throughout the forefoot and midfoot as above with articular and bony destruction resulting in dorsal dislocation of the forefoot. 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 Associated changes of Charcot neuropathy may also be present. These findings are new from 08/01/2020. --Arterial Doppler 12/17/20:No evidence for arterial occlusion within the left lower extremity. Monophasic waveforms seen within the left superficial femoral, popliteal, and calf arteries suggestive of diffuse atherosclerotic disease. However, no elevated velocities to suggest stenosis at this time. -Patient was hospitalized for same issue previously--patient declined surgery at the time and was discharged home on IV daptomycin -Wound culture from Dec 13 growing-100 bacterium, Camila albicans/dubliniensis -Blood Cx: No growth -Continue Daptomycin for now -Appreciate Orthopedics/Vascular Surgery Input -Will need AKA -Pain control, wound care -Given high risk for surgery with multiple comorbidities, vascular surgery recommended transfer to tertiary care facility for surgery Patient is accepted at [facility] for further care. Accepting Physician: Dr.Juan Segura Plan to transfer [place] [facility] when [place] available Hold Statin while on Daptomycin Waiting for placement NSVT H/O SVT S/P AICD Patient had asymptomatic 8 beats of VT Continue metoprolol Discussed with director instrumentation on-call We will plan to increase metoprolol dose if any recurrence Monitor on telemetry No recurrence on monitor Depression Anxiety Previously followed with psychiatry as outpatient Denies any suicidal ideation Appreciate psychiatry input Consider to start fluoxetine after surgery Constipation Continue bowel regimen Minimize narcotics as able (5) T2DM (type 2 diabetes mellitus): Hemoglobin A1c is 8.1. Continue Insulin therapy Monitor BGs Appreciate glycemic Pharmacist help (6) Ischemic cardiomyopathy: (7) S/P ICD (internal cardiac defibrillator) procedure: (8) Chronic diastolic heart failure: Continue home diuretics-Aldactone, torsemide Continue metoprolol succinate (9) Atrial fibrillation: Continue Metoprolol Coumadin on hold as planned for surgery Continue IV heparin for now (10) NINA on CPAP: CPAP at bedtime (11) CAD (coronary artery disease): Continue aspirin, statin (12) Morbid obesity: BMI: 45 (13) DVT prophylaxis: Heparin drip Code Status Full Code Disposition Plan to transfer to [facility] when bed available Total Time Total Time Spent Total Time Spent (In Minutes): 45 minutes Discharge Plan Discharge Items Patient Disposition: Transfer Acute Care Hospital Reason For Visit: LEFT LEG INFECTION Discharge Diagnosis: Acute Osteomyelitis Severe Charcot arthropathy NSVT Depression Condition on Discharge: Fair Activity: Per Instructions section Exercise/Sports: Wait until after follow-up appointment Non-emergency contact: Primary Care Provider, Surgeon and Psychiatrist Call non-emergency contact if: you have any medication questions, your symptoms worsen, your pain is concerning for you and you have a fever Follow-up/Referrals: Sherry Maya DO [Primary Care Provider] - Diet: Carb Consistent or DM2 Addtl Attending Provider Instructions: Follow up with Dr.Juan Segura at [facility] for further management. Medications: You are on IV Heparin and your Coumadin i son hold during your hospital stay You were receiving IV Daptomycin while hospitalized Hold Atorvastatin while on Daptomycin. Seek immediate medical attention if your symptoms reoccur or worsen Please take all medications as instructed on discharge list below. Please call if you have any questions or problems. You can reach a [facility] hospitalist on duty at [facility] 24 hours a day by calling [phone] Pending Studies at Discharge: No Stand-Alone Forms: My [facility] Skilled Items Patient informed of condition?: Yes DNR: No Discharge Level of Care: Other Communicable Disease: No Discharge Prognosis: Stable Lines: Peripheral IV Urinary Catheter: No Medications and DC Order Prescriptions: New sennosides-docusate sodium [Senokot-S] 8.6-50 mg Tablet 1 tab PO BID PRN (Reason: Constipation) Qty: 0 RF: 0 polyethylene glycol 3350 [Miralax] 17 gram Powder In Packet 17 g PO DAILY PRN (Reason: constipation) Qty: 0 RF: 0 Continued fluticasone propionate [Flonase Allergy Relief] 50 mcg/actuation spray,suspension 2 sprays INTNAS BID RF: 0 magnesium oxide 400 mg capsule 400 mg PO QAM RF: 0 mometasone-formoterol [Dulera] 200-5 mcg/actuation HFA aerosol inhaler 2 puffs INH BID RF: 0 nitroglycerin 0.4 mg tablet, sublingual 0.4 mg SL Q5M PRN (Reason: Chest Pain) RF: 0 omeprazole 20 mg capsule,delayed release(DR/EC) 20 mg PO QAM RF: 0 tramadol 50 mg tablet 50 mg PO Q6H PRN (Reason: pain) RF: 0 (DME) blood-glucose meter [OneTouch Verio Flex meter] Misc See Rx Instructions .ROUTE .MEDSUPPLY Qty: 1 RF: 0 insulin aspart U-100 [Novolog U-100 Insulin aspart] 100 unit/mL solution See Rx Instructions continuous subcutaneous infusion DAILY Qty: 12 RF: 5 hyoscyamine sulfate [Levsin] 0.125 mg Tablet 0.125 mg PO TID RF: 0 gabapentin 300 mg Capsule 300 mg PO TID RF: 0 ergocalciferol (vitamin D2) 2,500 unit Capsule 50,000 unit PO WK RF: 0 albuterol sulfate [Ventolin HFA] 90 mcg/actuation Hfa Aerosol Inhaler 2 puff INHALATION QID PRN (Reason: SHORT OF BREATH) RF: 0 clobetasol 0.05 % cream 1 applic TOPICAL BID RF: 0 aspirin 81 mg Tablet,Delayed Release (Dr/Ec) 81 mg PO QAM RF: 0 warfarin 1 mg tablet 3 mg PO SUTH RF: 0 Lac-Hydrin Five 5 % Lotion 1 applic TOPICAL DAILY PRN (Reason: Dry Skin) RF: 0 potassium chloride 20 mEq tablet extended release 20 meq PO DAILY Qty: 30 RF: 0 metoprolol succinate 50 mg tablet extended release 24 hr 50 mg PO BID RF: 0 hydrocodone-acetaminophen 5-325 mg Tablet 1 tab PO Q6H PRN (Reason: Pain) RF: 0 metoprolol succinate 25 mg tablet extended release 24 hr 25 mg PO BID RF: 0 spironolactone 25 mg Tablet 25 mg PO DAILY RF: 0 levothyroxine 88 mcg tablet 88 mcg PO DAILY RF: 0 torsemide 20 mg tablet 20 mg PO BID RF: 0 warfarin 1 mg Tablet 2 mg PO MOTUWEFRSA RF: 0 diclofenac sodium [Voltaren Arthritis Pain] 1 % Gel 4 g EXT BID 10 Days Qty: 50 RF: 0 atorvastatin 80 mg tablet 80 mg PO HS Qty: 0 RF: 0 Discharge Orders: Discharge Order (Routine); Ordered 01/06/21 Ordered By: Tommy Allen Admission Data Admit Date/Time: 12/28/20 21:46 Attending Provider: Tommy Allen Admit Provider: Fei Pendleton Primary Care Provider: Sherry Maya Other Providers: Fei Pendleton ; Nate Gonzalez ; Cl Cruz ; [facility] ; Bg Bates ; [facility] ; Cesilia Hodge ; Ani Medina ; Joyce Grande ; Ladonna Braswell ; Jenni Jefferson ; Shubham Roper ; Jaime Saleem ; Girma Rosa ; Huey Mcclain ; Carie Mcclain ; Bryan Branch ; Jaimee Espitia ; Glen Spain ; Best Palmer ; John Herron ; Bruno Okeefe ; Deisy Obrien ; Declan Pleitez ; Kasey Patino ; Aurea Pleitez ; Michoacano Warner ; Shani Pedraza ; Jose Li. ; Parvin Barber ; Rylie Garcia ; Shani Singh ; Laura Willams ; Jadiel Woods ; Janis Reid ; Halina Chanel ; Amaris Rosado ; Ellen Sutherland ; Bereket Sutherland V ; Holger Rajan ; Ani Morton ; Marc Solano ; Cassi Burgos ; Judith Serrano ; Bereket Sherman ; Kenneth Obrien ; Fabrizio Bonilla ; Lora Gonzalez ; Soco Hauser ; Amaris Dickson ; Andres Mead ; Heron Okeefe ; Consuelo Easton ; Ryan Arciniega ; Jimmy Sawyer ; Dirk Abdul ; Mj Guerra ; Ryan Araiza ; Shubham Jennings Jr ; Renay King ; Geno Blancas ; Christianne Holland Other Interventions: Discharge Summary Assessment (RN) Last Done: 01/07/21 23:45
== END 2021-01-07 23:45 | disposition short-term general hospital (02) | DRG 638 ==
LOC: ED 18:45 → SUATTDRO 21:46 → 2W 21:46

== ENCOUNTER 2021-08-07 15:59 | Inpatient (IN) ==
--- NOTE | 2021-08-07 16:18 | Emergency Department Note ---
Impression & Plan Depression with suicidal ideation, Chronic kidney disease ED Provider Note NAME: STANISLAW ALCANTAR JR AGE: 55 SEX: M : 1965 ARRIVES VIA: Ambulance INFORMANT: Patient, ED PROVIDER(S): Tereso Contreras DO CHIEF COMPLAINT: Mental health evaluation HPI: The patient is a 55-year-old male who presented to the emergency department with police for mental health evaluation. The patient arrived with a 302 warrant. The patient himself denied any issues. He states that he was taken from his home against his well and brought to the emergency department. I did review the patient's 302 petition prior to interviewing him. I asked him specifically if he was having any thoughts of hurting himself or others and he denied having any thoughts of hurting himself or others. He denies having any fevers. He states has not been well for the last 4 days. He states he has had a cough and some difficulty breathing. He was tested for Covid but this was negative. The patient denies having any recent trauma. He denies having any traveling. He states he is been compliant with all of his medications to the best of his ability however he has had some days where he cannot get his medications. The patient states has been very depressed recently. He had to have his left leg amputated because of an infection over the last year. He states this is significantly changed his life and he has had some difficulty getting his medications as well as getting around. The patient himself denies taking any medications to hurt himself. He states he has had some lower extremity swelling in his right leg but this is not new for him. ROS: See above HPI for pertinent positives & negatives. A total of 10 systems reviewed and were otherwise negative. PAST MEDICAL HISTORY: See Below PAST SURGICAL HISTORY: See Below FAMILY HISTORY: See Below SOCIAL HISTORY: See Below HOME MEDICATIONS: See Below ALLERGIES: See Below VITALS: See Below PHYSICAL EXAMINATION: GENERAL: The patient is awake and alert. The patient is somewhat anxious and guarded appearing EYES: The conjunctivae are clear. The pupils are round and reactive. EARS, NOSE, MOUTH AND THROAT: The nose is without any evidence of any deformity. NECK: The neck is nontender and supple. RESPIRATORY: Normal respiratory effort is noted there is no evidence of wheezing rhonchi or rales CARDIOVASCULAR: Regular rate and rhythm noted there no murmurs rubs or gallops normal S1 normal S2. GASTROINTESTINAL: The abdomen is soft. Abdomen is nontender. MUSCULOSKELETAL/EXTREMITIES: There is no evidence of gross deformity full range of motion is noted in the hips and shoulders. There is a left lower extremity below the knee amputation appreciated. SKIN: Venous stasis changes are noted in the right leg. Pedal edema was noted in the right leg. NEUROLOGIC: Patient is awake alert and oriented x3. MEDICAL DECISION MAKING: Patient is a 55-year-old male who presented to emergency department for an acute psychiatric evaluation. The patient arrived with police. There was a 302 warrant. The patient was medically cleared in the emergency department. He did have extensive work-up because of his past medical history which included cardiac issues as well as heart issues. The patient was reevaluated multiple times. He was evaluated by the mental health case repairer. He does not appear to be a good candidate for outpatient management at this time and the patient himself does not have very good insight into his overall condition. For this reason the 302 warrant was upheld by myself. The patient is being evaluated by the mental health case repairer. He will then be evaluated by crisis. The patient was signed out to Dr. Mckeon at change of shift. Please see her note for continuation of care and further disposition. Triage Nursing notes reviewed. Prior medical records reviewed Vital Signs: reviewed and remarkable for hypertension. Differential diagnosis: Mood disorder, infection, hypoglycemia, electrolyte abnormalities, cardiac sources, intracerebral event, toxicologic, trauma, neurologic, as well as other pathologies. ER treatment provided: See below Diagnostics interpreted by me: ECG: EKG was obtained in the emergency department. My interpretation is sinus rhythm at 75 bpm. LVH was noted by voltage criteria. PVCs were noted. This was compared to a tracing from December 282020. There was a suspicion for lead reversal so a repeat EKG was obtained. A second EKG was obtained in the emergency department. My interpretation is sinus rhythm at 71 bpm. First-degree AV block was noted. LVH was noted by voltage criteria. High lateral T wave inversions were noted. This was compared to a tracing from December 282020. No changes were noted. Laboratory studies: As stated above and show below. 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 Bacteremia due to group B Streptococcus CAD (coronary artery disease) Cardiac defibrillator in situ 2007 with replacement 03/2020. follows with Dr. Maya. Cellulitis of left lower leg CHF (congestive heart failure) CKD (chronic kidney disease) stage 3, GFR 30-59 ml/min Deformity of foot Depression Diabetes type 2, uncontrolled Diabetic peripheral neuropathy associated with type 2 diabetes mellitus Diabetic ulcer of left foot associated with type 2 diabetes mellitus, with fat layer exposed Diabetic ulcer of left heel associated with diabetes mellitus due to underlying condition, limited to breakdown of skin Diabetic ulcer of right foot Dyslipidemia GERD (gastroesophageal reflux disease) H/O osteomyelitis History of diabetic ulcer of foot Hx of myocardial infarction found on testing Hx of osteomyelitis Hx of sepsis 06/2019 Hypertension Hypokalemia Hypothyroidism Ischemic cardiomyopathy Adams fracture Base of left fifth metatarsal, nonhealing x years Lymphedema Morbid obesity Peripheral arterial disease Pneumonia due to COVID-19 virus Rectal bleeding SARS-CoV-2 positive Sepsis Sleep apnea BIPAP Sustained VT (ventricular tachycardia) T2DM (type 2 diabetes mellitus) Venous stasis ulcer of right lower leg with edema of right lower leg Vitamin D deficiency Surgical History H/O cardiac radiofrequency ablation OCTOBER 2019 ([facility]) AT [facility] H/O foot surgery LEFT FOOT ULCER DEBRIDEMENT H/O shoulder surgery left History of cardiac cath V. tach -- no stent. 06/2019. unsure where it was done History of colonoscopy History of esophagogastroduodenoscopy (EGD) History of sinus surgery Hx of amputation of lesser toe Hx of tonsillectomy Family History Sister Family history of diabetes mellitus 2 Grandmother (Maternal) Family history of diabetes mellitus Grandfather (Maternal) Family history of diabetes mellitus Father Cancer Mother Cancer Other No family history of adverse response to anesthesia Social History Smoking Status: Never smoker Second Hand Exposure: No; Hx Alcohol Use: No Hx Substance Use: No Preferred Language: Danish Communication Ability: Effective Operator Command Support Systems Required: No Beliefs That Will Affect Care: None marital status: Current Living Situation: Alone current occupational status: disabled How many Children do You have: 3 Feels Safe at Home: Yes Assistive Devices: Cane, Glasses and Special Shoe Allergies Allergies Allergy/AdvReac Type Severity Reaction Status Date / Time benzonatate AdvReac Intermediate choking, Verified 12/28/20 21:19 gagging Home Meds Home Medications Medication Instructions Recorded Confirmed fluticasone propionate 50 2 sprays INTNAS BID gm 12/21/17 08/07/21 mcg/actuation nasal spray,suspension (Flonase Allergy Relief) magnesium oxide 400 mg PO QAM cap 12/21/17 08/07/21 mometasone-formoterol HFA 200 2 puffs INH BID 12/21/17 08/07/21 mcg-5 mcg/actuation aerosol inhaler (Dulera) omeprazole 20 mg capsule,delayed 20 mg PO QAM 12/21/17 08/07/21 release ergocalciferol (vitamin D2) 62.5 50,000 unit PO WK 04/12/19 08/07/21 mcg (2,500 unit) capsule gabapentin 300 mg capsule 300 mg PO TID 04/12/19 08/07/21 clobetasol 0.05 % topical cream 1 applic TOPICAL BID 01/18/20 08/07/21 albuterol sulfate 90 mcg/actuation 2 puff INHALATION QID PRN 05/30/20 08/07/21 aerosol inhaler (Ventolin HFA) aspirin 81 mg tablet,delayed 81 mg PO QAM 06/12/20 08/07/21 release warfarin 1 mg tablet 3 mg PO SUTH 07/12/20 08/07/21 hydrocodone 5 mg-acetaminophen 325 1 tab PO Q6H PRN 12/13/20 08/07/21 mg tablet levothyroxine 88 mcg tablet 88 mcg PO DAILY 12/13/20 08/07/21 metoprolol succinate 25 mg 25 mg PO BID 12/13/20 08/07/21 tablet,extended release 24 hr metoprolol succinate 50 mg 50 mg PO BID 12/13/20 08/07/21 tablet,extended release 24 hr spironolactone 25 mg tablet 25 mg PO DAILY 12/13/20 08/07/21 Previous Rx's Medication Instructions Recorded potassium chloride 20 mEq 20 meq PO DAILY #30 tab 08/23/20 tablet,extended release atorvastatin 80 mg tablet 80 mg PO HS #0 tab 12/21/20 Results & Data (ED) Vital Signs Vital Signs - 24 hr 08/07/21 15:44 08/07/21 17:29 Temperature 36 C L Temperature Source Oral Pulse Rate 76 Pulse Rate [Right Radial] 72 Respiratory Rate 20 20 Respiratory Effort / Characteristics Non-Labored Respiratory Depth Normal Blood Pressure 134/76 Blood Pressure [Right Arm] 149/94 H Blood Pressure Mean 95 Blood Pressure Mean [Right Arm] 112 Pulse Oximetry 98 98 Oxygen Delivery Method Room Air Room Air Sepsis Recent Fever Within 48 Hours No Sepsis New/Unexplained Change in Mental Status N/A Sepsis Action Taken by Nursing No Action Required Home Medications Current Medication List: was personally reviewed by me Laboratory Data Attestation: I reviewed the patient's lab results. Result diagrams: 08/07/21 16:45 08/07/21 16:45 Lab Results 08/07/21 08/07/21 08/07/21 Range/Units 16:35 16:35 16:45 WBC (4.8-10.8) K/uL RBC (4.7-6.1) M/uL Hgb (14.0-18.0) g/dL Hct (42-52) % MCV (80-100) fL MCH (25-34) pg MCHC (32-36) g/dL RDW Std Deviation (36.4-46.3) fL RDW Coeff of Мария (11.5-14.5) % Plt Count (130-400) K/uL MPV (7.4-10.4) fL Immature Gran % (Auto) % Neut % (Auto) % Lymph % (Auto) % Campbell % (Auto) % Eos % (Auto) % Baso % (Auto) % Neut # (Auto) (1.4-6.5) K/uL Lymph # (Auto) (1.2-3.4) K/uL Campbell # (Auto) (0.11-0.59) K/uL Eos # (Auto) (0-0.5) K/uL Baso # (Auto) (0-0.2) K/uL Immature Gran # (Auto) (0.00-0.02) K/uL PT 18.8 H (9.0-12.0) Seconds INR 1.8 H (0.9-1.1) APTT 35.7 H (21.0-31.0) Seconds PTT Ratio 1.3 Sodium (136-145) mmol/L Potassium (3.5-5.1) mmol/L Chloride (98-107) mmol/L Carbon Dioxide (21-32) mmol/L Anion Gap (3-11) BUN (6-23) mg/dl Creatinine (0.6-1.4) mg/dl Est Cr Clr Drug Dosing Est GFR ( Amer) ml/min Est GFR (Non-Af Amer) ml/min BUN/Creatinine Ratio (10-20) Glucose (70-99(Fasting)) mg/dl Calcium (8.5-10.1) mg/dl Total Bilirubin (0.2-1.0) mg/dl AST (13-39) U/L ALT (7-52) U/L Alkaline Phosphatase (34-104) U/L Troponin I High Sens (0-20) pg/ml Total Protein (6.0-8.3) gm/dl Albumin (3.4-5.0) gm/dl Globulin (2.5-4.0) gm/dl Albumin/Globulin Ratio (0.9-2) TSH (0.300-4.500) uIu/ml Urine Color Yellow Urine Appearance Clear (Clear) Urine pH 6.5 (4.5-7.5) Ur Specific [place] 1.010 (1.000-1.030) Urine Protein 2+ H (Negative) Urine Glucose (UA) Negative (Negative) Urine Ketones Negative (Negative) Urine Blood 1+ H (Negative) Urine Nitrite Negative (Negative) Urine Bilirubin Negative (Negative) Urine Urobilinogen Negative (Negative) Ur Leukocyte Esterase Negative (Negative) Urine WBC (Auto) 0 (0-5) /hpf Urine RBC (Auto) 0-4 (0-4) /hpf U Hyaline Cast (Auto) 1-5 (0-5) /lpf U Epithel Cells (Auto) 10-20 H (0-5) /lpf Urine Bacteria (Auto) Negative (Negative) Salicylates (3.0-30) mg/dl Urine Opiates Screen Pos H (Neg) Ur Methadone, Qual Neg (Neg) Acetaminophen (10-30) ug/ml Urine Barbiturates Neg (Neg) Ur Phencyclidine (PCP) Neg (Neg) U Amphetamin/Meth Scrn Neg (Neg) MDMA (Ecstasy) Screen Neg (Neg) U Benzodiazepines Scrn Neg (Neg) Ur Cocaine Metabolite Neg (Neg) U Marijuana (THC) Screen Neg (Neg) Ethyl Alcohol mg/dL (<10.0) mg/dl SARS-CoV-2, RNA, NAAT (NEGATIVE) 08/07/21 08/07/21 08/07/21 Range/Units 16:45 16:45 16:45 WBC 9.24 (4.8-10.8) K/uL RBC 5.29 (4.7-6.1) M/uL Hgb 15.7 (14.0-18.0) g/dL Hct 47.7 (42-52) % MCV 90.2 (80-100) fL MCH 29.7 (25-34) pg MCHC 32.9 (32-36) g/dL RDW Std Deviation 53.2 H (36.4-46.3) fL RDW Coeff of Мария 16.0 H (11.5-14.5) % Plt Count 222 (130-400) K/uL MPV 9.8 (7.4-10.4) fL Immature Gran % (Auto) 0.4 % Neut % (Auto) 79.5 % Lymph % (Auto) 7.1 % Campbell % (Auto) 12.4 % Eos % (Auto) 0.3 % Baso % (Auto) 0.3 % Neut # (Auto) 7.33 H (1.4-6.5) K/uL Lymph # (Auto) 0.66 L (1.2-3.4) K/uL Campbell # (Auto) 1.15 H (0.11-0.59) K/uL Eos # (Auto) 0.03 (0-0.5) K/uL Baso # (Auto) 0.03 (0-0.2) K/uL Immature Gran # (Auto) 0.04 H (0.00-0.02) K/uL PT (9.0-12.0) Seconds INR (0.9-1.1) APTT (21.0-31.0) Seconds PTT Ratio Sodium 135 L (136-145) mmol/L Potassium 4.0 (3.5-5.1) mmol/L Chloride 100 (98-107) mmol/L Carbon Dioxide 27 (21-32) mmol/L Anion Gap 8 (3-11) BUN 38 H (6-23) mg/dl Creatinine 1.53 H (0.6-1.4) mg/dl Est Cr Clr Drug Dosing Not Reportable Est GFR ( Amer) 57.7 ml/min Est GFR (Non-Af Amer) 49.7 ml/min BUN/Creatinine Ratio 24.8 H (10-20) Glucose 158 H (70-99(Fasting)) mg/dl Calcium 9.3 (8.5-10.1) mg/dl Total Bilirubin 1.1 H (0.2-1.0) mg/dl AST 15 (13-39) U/L ALT 13 (7-52) U/L Alkaline Phosphatase 114 H (34-104) U/L Troponin I High Sens 15.0 (0-20) pg/ml Total Protein 8.5 H (6.0-8.3) gm/dl Albumin 3.9 (3.4-5.0) gm/dl Globulin 4.6 H (2.5-4.0) gm/dl Albumin/Globulin Ratio 0.8 L (0.9-2) TSH 1.914 (0.300-4.500) uIu/ml Urine Color Urine Appearance (Clear) Urine pH (4.5-7.5) Ur Specific [place] (1.000-1.030) Urine Protein (Negative) Urine Glucose (UA) (Negative) Urine Ketones (Negative) Urine Blood (Negative) Urine Nitrite (Negative) Urine Bilirubin (Negative) Urine Urobilinogen (Negative) Ur Leukocyte Esterase (Negative) Urine WBC (Auto) (0-5) /hpf Urine RBC (Auto) (0-4) /hpf U Hyaline Cast (Auto) (0-5) /lpf U Epithel Cells (Auto) (0-5) /lpf Urine Bacteria (Auto) (Negative) Salicylates (3.0-30) mg/dl Urine Opiates Screen (Neg) Ur Methadone, Qual (Neg) Acetaminophen (10-30) ug/ml Urine Barbiturates (Neg) Ur Phencyclidine (PCP) (Neg) U Amphetamin/Meth Scrn (Neg) MDMA (Ecstasy) Screen (Neg) U Benzodiazepines Scrn (Neg) Ur Cocaine Metabolite (Neg) U Marijuana (THC) Screen (Neg) Ethyl Alcohol mg/dL (<10.0) mg/dl SARS-CoV-2, RNA, NAAT (NEGATIVE) 08/07/21 08/07/21 08/07/21 Range/Units 16:45 16:45 16:45 WBC (4.8-10.8) K/uL RBC (4.7-6.1) M/uL Hgb (14.0-18.0) g/dL Hct (42-52) % MCV (80-100) fL MCH (25-34) pg MCHC (32-36) g/dL RDW Std Deviation (36.4-46.3) fL RDW Coeff of Мария (11.5-14.5) % Plt Count (130-400) K/uL MPV (7.4-10.4) fL Immature Gran % (Auto) % Neut % (Auto) % Lymph % (Auto) % Campbell % (Auto) % Eos % (Auto) % Baso % (Auto) % Neut # (Auto) (1.4-6.5) K/uL Lymph # (Auto) (1.2-3.4) K/uL Campbell # (Auto) (0.11-0.59) K/uL Eos # (Auto) (0-0.5) K/uL Baso # (Auto) (0-0.2) K/uL Immature Gran # (Auto) (0.00-0.02) K/uL PT (9.0-12.0) Seconds INR (0.9-1.1) APTT (21.0-31.0) Seconds PTT Ratio Sodium (136-145) mmol/L Potassium (3.5-5.1) mmol/L Chloride (98-107) mmol/L Carbon Dioxide (21-32) mmol/L Anion Gap (3-11) BUN (6-23) mg/dl Creatinine (0.6-1.4) mg/dl Est Cr Clr Drug Dosing Est GFR ( Amer) ml/min Est GFR (Non-Af Amer) ml/min BUN/Creatinine Ratio (10-20) Glucose (70-99(Fasting)) mg/dl Calcium (8.5-10.1) mg/dl Total Bilirubin (0.2-1.0) mg/dl AST (13-39) U/L ALT (7-52) U/L Alkaline Phosphatase (34-104) U/L Troponin I High Sens (0-20) pg/ml Total Protein (6.0-8.3) gm/dl Albumin (3.4-5.0) gm/dl Globulin (2.5-4.0) gm/dl Albumin/Globulin Ratio (0.9-2) TSH (0.300-4.500) uIu/ml Urine Color Urine Appearance (Clear) Urine pH (4.5-7.5) Ur Specific [place] (1.000-1.030) Urine Protein (Negative) Urine Glucose (UA) (Negative) Urine Ketones (Negative) Urine Blood (Negative) Urine Nitrite (Negative) Urine Bilirubin (Negative) Urine Urobilinogen (Negative) Ur Leukocyte Esterase (Negative) Urine WBC (Auto) (0-5) /hpf Urine RBC (Auto) (0-4) /hpf U Hyaline Cast (Auto) (0-5) /lpf U Epithel Cells (Auto) (0-5) /lpf Urine Bacteria (Auto) (Negative) Salicylates < 3.0 L (3.0-30) mg/dl Urine Opiates Screen (Neg) Ur Methadone, Qual (Neg) Acetaminophen < 3 L (10-30) ug/ml Urine Barbiturates (Neg) Ur Phencyclidine (PCP) (Neg) U Amphetamin/Meth Scrn (Neg) MDMA (Ecstasy) Screen (Neg) U Benzodiazepines Scrn (Neg) Ur Cocaine Metabolite (Neg) U Marijuana (THC) Screen (Neg) Ethyl Alcohol mg/dL < 10.0 (<10.0) mg/dl SARS-CoV-2, RNA, NAAT NEGATIVE (NEGATIVE) Administered Medications Discontinued Medications Hydrocodone Bitart/Acetaminophen (Hydrocodone/Acetamophen 5/325mg Tab) 1 tab PO ONE ONE Stop: 08/07/21 22:07 Last Admin: 08/07/21 22:29 Dose: 1 tab Documented by: [id number] Imaging Data Radiologist's Impression: Chest X-Ray 08/07/21 16:13 XR chest 1V portable HISTORY: Shortness of breath. COMPARISON: Chest 12/13/2020. FINDINGS: No pneumothorax. No pleural effusions. The cardiac silhouette remains mildly enlarged. There is left-sided single lead pacemaker. There is mild central pulmonary vascular congestion without overt edema. This remains unchanged. No new focal lung consolidations to suggest pneumonia. IMPRESSION: Cardiomegaly with mild congestive change. This is similar to the prior study. ACT 112: Negative or not required by law. Electronically signed by: Huey Thorne M.D. 08/07/2021 4:55 PM Discharge Plan Visit Data Chief Complaint: Mental Health Evaluation Stated Complaint: [facility] ED Provider: Tereso Contreras Discharge Problem: Depression with suicidal ideation, Chronic kidney disease Patient Disposition: Still a Patient Forms Stand Alone Forms: [facility], Suicide Prevention Resources Prescriptions Prescriptions: No Action fluticasone propionate [Flonase Allergy Relief] 50 mcg/actuation spray,suspension 2 sprays INTNAS BID RF: 0 magnesium oxide 400 mg capsule 400 mg PO QAM RF: 0 mometasone-formoterol [Dulera] 200-5 mcg/actuation HFA aerosol inhaler 2 puffs INH BID RF: 0 omeprazole 20 mg capsule,delayed release(DR/EC) 20 mg PO QAM RF: 0 gabapentin 300 mg Capsule 300 mg PO TID RF: 0 ergocalciferol (vitamin D2) 2,500 unit Capsule 50,000 unit PO WK RF: 0 albuterol sulfate [Ventolin HFA] 90 mcg/actuation Hfa Aerosol Inhaler 2 puff INHALATION QID PRN (Reason: SHORT OF BREATH) RF: 0 clobetasol 0.05 % cream 1 applic TOPICAL BID RF: 0 aspirin 81 mg Tablet,Delayed Release (Dr/Ec) 81 mg PO QAM RF: 0 warfarin 1 mg tablet 3 mg PO SUTH RF: 0 potassium chloride 20 mEq tablet extended release 20 meq PO DAILY Qty: 30 RF: 0 metoprolol succinate 50 mg tablet extended release 24 hr 50 mg PO BID RF: 0 hydrocodone-acetaminophen 5-325 mg Tablet 1 tab PO Q6H PRN (Reason: Pain) RF: 0 metoprolol succinate 25 mg tablet extended release 24 hr 25 mg PO BID RF: 0 spironolactone 25 mg Tablet 25 mg PO DAILY RF: 0 levothyroxine 88 mcg tablet 88 mcg PO DAILY RF: 0 atorvastatin 80 mg tablet 80 mg PO HS Qty: 0 RF: 0 Referrals Referrals: Sherry Maya DO [Primary Care Provider] - Discharge Problem: Chronic kidney disease Qualifiers: Chronic kidney disease stage: unspecified stage Qualified Code(s): N18.9 - Chronic kidney disease, unspecified
--- NOTE | 2021-08-07 16:56 | XRay Report ---
XR chest 1V portable HISTORY: Shortness of breath. COMPARISON: Chest 12/13/2020. FINDINGS: No pneumothorax. No pleural effusions. The cardiac silhouette remains mildly enlarged. Ther e is left-sided single lead pacemaker. There is mild central pulmonary vascular congestion without ov ert edema. This remains unchanged. No new focal lung consolidations to suggest pneumonia. IMPRESSION: Cardiomegaly with mild congestive change. This is similar to the prior study. ACT 112: Negative or not required by law. Electronically signed by: Huey Thorne M.D. 08/07/2021 4:55 PM
[2021-08-07 17:01] LABS: Appearance Urine Clear (Clear); Bacteria Urine Automated Negative (Negative); Bilirubin Urine Negative (Negative); Blood Urine 1+ (Negative); Color Urine Yellow; Glucose Urine UA Negative (Negative); Ketones Urine Negative (Negative); Leukocyte Esterase Urine Negative (Negative); Nitrite Urine Negative (Negative); Protein Urine 2+ (Negative); RBC Urine Automated 0-4 /hpf (0-4); Urobilinogen Urine Negative (Negative); WBC Urine Automated 0 /hpf (0-5); pH Urine 6.5 (4.5-7.5)
[2021-08-07 17:03] LABS: Basophils # (auto) 0.03 K/uL (0-0.2); Basophils % (auto) 0.3 %; Eosinophils # (auto) 0.03 K/uL (0-0.5); Eosinophils % (auto) 0.3 %; Hematocrit (blood only) 47.7 % (42-52); Hemoglobin 15.7 g/dL (14.0-18.0); Immature Granulocytes # (auto) 0.04 K/uL (0.00-0.02); Immature Granulocytes % (auto) 0.4 %; Lymphocytes # (auto) 0.66 K/uL (1.2-3.4); Lymphocytes % (auto) 7.1 %; Mean Corpuscular Hemoglobin 29.7 pg (25-34); Mean Corpuscular Hgb Conc 32.9 g/dL (32-36); Mean Corpuscular Volume 90.2 fL (80-100); Mean Platelet Volume 9.8 fL (7.4-10.4); Monocytes # (auto) 1.15 K/uL (0.11-0.59); Monocytes % (auto) 12.4 %; Neutrophils # (auto) 7.33 K/uL (1.4-6.5); Neutrophils % (auto) 79.5 %; Platelet Count 222 K/uL (130-400); RDW Standard Deviation 53.2 fL (36.4-46.3); Red Blood Count 5.29 M/uL (4.7-6.1); White Blood Count 9.24 K/uL (4.8-10.8)
[2021-08-07 17:14] LABS: INR 1.8 (0.9-1.1); Partial Thromboplastin Ratio 1.3; Partial Thromboplastin Time 35.7 Seconds (21.0-31.0); Prothrombin Time 18.8 Seconds (9.0-12.0)
[2021-08-07 17:28] LABS: Alanine Aminotransferase 13 U/L (7-52); Albumin Globulin Ratio 0.8 (0.9-2); Albumin Level 3.9 gm/dl (3.4-5.0); Alkaline Phosphatase 114 U/L (34-104); Anion Gap 8 (3-11); Aspartate Aminotransferase 15 U/L (13-39); BUN Creatinine Ratio 24.8 (10-20); Bilirubin,Total 1.1 mg/dl (0.2-1.0); Blood Urea Nitrogen 38 mg/dl (6-23); Calcium 9.3 mg/dl (8.5-10.1); Carbon Dioxide 27 mmol/L (21-32); Chloride 100 mmol/L (98-107); Est GFR (African American) 57.7 ml/min; Est GFR (Non-African American) 49.7 ml/min; Globulin 4.6 gm/dl (2.5-4.0); Glucose 158 mg/dl (70-99(Fasting)); Sodium 135 mmol/L (136-145); Total Protein 8.5 gm/dl (6.0-8.3)
[2021-08-07 17:29] LABS: Acetaminophen < 3 ug/ml (10-30); Salicylate < 3.0 mg/dl (3.0-30)
[2021-08-07 17:37] LABS: Amphetamines+Metham, Urine Neg (Neg); Barbiturates, Urine Neg (Neg); Benzodiazepine, Urine Neg (Neg); Cocaine, Urine Neg (Neg); MDMA (Ecstacy), Urine Neg (Neg); Methadone, Urine Neg (Neg); Opiate, Urine Pos (Neg); Phencyclidine, Urine Neg (Neg)
[2021-08-07] MEDS ORDERED: HYDROCODONE/ACETAMOPHEN 5/325MG TAB PO ONE (22:06)
[2021-08-08] MEDS ORDERED: HYDROCODONE/ACETAMOPHEN 5/325MG TAB PO PRN (00:40)
[2021-08-08] MEDS ORDERED: ALBUTEROL HFA 8 GM INHALER INH PRN ×2 (00:40→10:27)
[2021-08-08] MEDS ORDERED: WARFARIN SOD 1 MG TAB PO SCH (00:45)
[2021-08-08] MEDS ORDERED: ERGOCALCIFEROL PO SCH (00:45)
[2021-08-08] MEDS ORDERED: ALUMINUM/MAGNESIUM SUSP 30 ML UDC PO PRN (03:05)
[2021-08-08] MEDS ORDERED: SODIUM CHLORIDE 0.65% NA SOLN 45 ML (OCEAN) PRN (03:05)
[2021-08-08] MEDS ORDERED: ACETAMINOPHEN 325 MG TAB PO PRN (03:05)
[2021-08-08] MEDS ORDERED: hydrOXYzine HCl 25 MG TAB PO PRN ×2 (03:05)
[2021-08-08] MEDS ORDERED: MAGNESIUM HYDROXIDE SUSP 30 ML UDC PO PRN (03:05)
[2021-08-08] MEDS ORDERED: PHARMACY GLYCEMIC MGMT CONSULT PRN ×2 (04:32→14:20)
[2021-08-08] MEDS ORDERED: GLUCOSE 10 TABS/TUBE PO PRN (06:15)
[2021-08-08] MEDS ORDERED: DEXTROSE 50% 50 ML SYRINGE IV PRN (06:15)
[2021-08-08] MEDS ORDERED: GLUCAGON FOR INJ 1 MG VIAL IM PRN (06:15)
[2021-08-08] MEDS ORDERED: GLUCOSE 40% GEL 15 GM TUBE PO PRN (06:15)
[2021-08-08] MEDS ORDERED: CARBOHYDRATES FOR HYPOGLYCEMIA PO PRN (06:15)
--- NOTE | 2021-08-08 06:30 | Emergency Department Note ---
ED Visit Note Patient signed out to me at change of shift by Dr. Contreras. Patient is assigned 302 warrant and medically clear from his perspective at time of signout. Patient awaiting final disposition from case management. No issues reported to me by staff while patient was here during the course of [facility] shift [facility]. Patient was accepted to 3 S. at 0 230. . : Chronic kidney disease Qualifiers: Chronic kidney disease stage: unspecified stage Qualified Code(s): N18.9 - Chronic kidney disease, unspecified
[2021-08-08] MEDS ORDERED: FLUTICASONE PROPIONATE NA SPR 16 GM BTL SCH (09:00)
[2021-08-08] MEDS ORDERED: GABAPENTIN 300 MG CAP PO SCH (09:00)
[2021-08-08] MEDS ORDERED: METOPROLOL SUCC 25MG EXT REL TAB PO SCH (09:00)
[2021-08-08] MEDS ORDERED: LEVOTHYROXINE SODIUM 88 MCG TABLET PO SCH (09:00)
[2021-08-08] MEDS ORDERED: NON-FORMULARY MEDICATION (Omeprazole 20 mg capsule,delayed release(DR/EC)) PO SCH (09:00)
[2021-08-08] MEDS: INSULIN ASPART PER UNIT SC SCH ×4 (09:00→21:44)
[2021-08-08] MEDS ORDERED: NON-FORMULARY MEDICATION (Mometasone-Formoterol [Dulera] 200-5 mcg/actuation HFA aerosol i INH SCH (09:00)
[2021-08-08] MEDS ORDERED: SPIRONOLACTONE 25 MG TAB PO SCH (09:00)
[2021-08-08] MEDS ORDERED: INSULIN GLARGINE SOLOSTAR 100 UNITS/ML 3 ML PEN SC SCH (09:00)
[2021-08-08] MEDS ORDERED: ASPIRIN 81 MG ECTAB PO SCH (09:00)
[2021-08-08] MEDS ORDERED: MAGNESIUM OXIDE 400 MG PO SCH (09:00)
[2021-08-08] MEDS ORDERED: POTASSIUM CHLORIDE CRTAB 20 MEQ TABCR PO SCH (09:00)
[2021-08-08] MEDS ORDERED: METOPROLOL SUCC 50MG EXT REL TAB PO SCH (09:00)
[2021-08-08] MEDS ORDERED: diphenhydrAMINE Capsule 25 MG CAP PO PRN (10:24)
[2021-08-08] MEDS ORDERED: HYDROCORTISONE 1% CRM 30 GM TUBE EXT PRN (10:27)
[2021-08-08] MEDS: ASPIRIN 81 MG ECTAB PO SCH (11:25)
[2021-08-08] MEDS: MAGNESIUM OXIDE 400 MG TAB PO SCH (11:25)
[2021-08-08] MEDS: PANTOprazole 40 MG TAB PO SCH (11:25)
[2021-08-08] MEDS: POTASSIUM CHLORIDE CRTAB 20 MEQ TABCR PO SCH (11:26)
[2021-08-08] MEDS: SERTRALINE HCL 50 MG TABLET PO SCH (11:26)
[2021-08-08] MEDS: GABAPENTIN 300 MG CAP PO SCH ×3 (12:02→21:30)
[2021-08-08] MEDS: LEVOTHYROXINE SODIUM 88 MCG TABLET PO SCH (12:02)
[2021-08-08] MEDS: METOPROLOL SUCC 25MG EXT REL TAB PO SCH ×2 (12:03→21:30)
[2021-08-08] MEDS: FLUTICASONE PROPIONATE NA SPR 16 GM BTL SCH ×2 (12:03→21:31)
[2021-08-08] MEDS: SPIRONOLACTONE 25 MG TAB PO SCH (12:04)
[2021-08-08] MEDS: FLUTICASONE FUROATE 100MCG 14 PUFFS/INHALER INH SCH (12:05)
[2021-08-08] MEDS: HYDROCODONE/ACETAMOPHEN 5/325MG TAB PO PRN (12:05)
--- NOTE | 2021-08-08 13:28 | Pharmacy Report ---
Pharmacy Glycemic Short Note 2 - Date of Service August 08, 2021 - Glycemic Short BSG Results (Last 24 hours): 08/07/21 08/08/21 08/08/21 16:45 01:23 07:44 Glucose 158 H POC Glucose 136 H 169 H 08/08/21 12:26 Glucose POC Glucose 255 H OUTPATIENT ANTIDIABETIC REGIMEN: * Tslim pump + CGM in auto mode * Basal rate self-adjusts but generally around 3 units/hr * CF 30 CR 4 ASSESSMENT: * Mr Lyle is a 55 y/o M with a PMH of T2DM on insulin pump at home. * Will initiate patient on Lantus 50 units SQ daily. Change administration time to noon to help with transition to home insulin pump when discharged. (Prevents giving Lantus in the morning when patient to be discharged that day.) This dose of Lantus has been effective during previous hospitalizations. This may require titration upwards to 60-65 units/day. * Initiate Novolog similar to previous admissions. PLAN FOR INPATIENT GLYCEMIC CONTROL: * Basal insulin * Lantus 50 units SQ daily @ noon * Bolus insulin * NovoLog per scale ACHS or Q6hrs while NPO * Goal Range: Low 110 mg/dL - High 140 mg/dL * Correction Factor: 15 mg/dL/unit * Nutritional / Prandial insulin per carb ratio of 1 unit per 4 grams CHO consumed
--- NOTE | 2021-08-08 14:18 | History & Physical ---
Date of Service August 08, 2021 Impression / Recommendations Impression 55 yo male with depressive symptoms in the context of multiple medical problems and estrangement of , most significantly the amputation resulting in limited mobility. He is on a 302 warrant. Re: suicide risk assessment, although he is currently denying SI, he remains moderate risk given medical co-mobidities and 302 status. He initially was not provided in his prosthetic leg in the ED as he was agitated, at least verbally and preceived as threatening with it. He is much calmer this am, and clearly requires to toilet and maneuver around room. Less of a risk than wheelchair at bedside. The sneaker includes laces which I do not believe he can remove so an order will be written to accommodate patient for this. He is on MNPR given multiple medical issues, amputee, 302 status, etc. (1) Depression with suicidal ideation: (2) History of amputation of left foot: (3) Chronic kidney disease: Chronic kidney disease stage: unspecified stage Qualified Code(s): N18.9 - Chronic kidney disease, unspecified (4) Diabetes type 2, uncontrolled: (5) Hypothyroidism: (6) NINA on CPAP: (7) Asthma: The patient was admitted to the [facility] ([facility] inpatient mental health unit) on q15 min checks (behavioral with suicide precautions) for safety. The patient will participate in group, recreational, and milieu therapies and will be offered additional individual and family sessions as clinically appropriate. He is unsure if he wants to increase Zoloft at this time. His main request is regarding services and is agreeable to sign ROIs for [facility] care management. In meantime, PT assessment. He reports med compliance, but then adds "when I can get them" and is currently subtherapeutic on coumadin as target INR generally 2.1. Coumadin protocol. Glycemic management consult for diabetes. He complains of ear pain, no significant fluid was noted but some clouding and no insufflator bulb. He had pain with movement of pinna, given chronic sinusitis and inability to use bipap, reports plan to resume antibiotics. Rx presumed sinusitis with Amoxicillin for 10 days. Inventory Assets Strengths: knowledgable re: med list, wants to re-engage services Needs: in home supports Risk Factors Assessment Male: Yes : Yes Do You Have Access To A Gun?: No (were removed by police due to PFA (per ED chart/daughter)) Health Problems: Yes Mental Health Diagnoses: Yes Substance Use Disorders: No Previous Attempt: No Protective Factors Assessment Employed: No Stable Relationships: No Supportive Family: No Psychiatric History Identifying Data BEN ALCANTAR is a 55-year-old M who currently lives in [place] and was admitted on 08/08/21 01:16 on a 302 involuntary commitment for text messages to harm self/others. Chief Complaint "I was just angry and trying to get some help as I can't get around". History of Present Illness Ben was brought to ED by police on a 302 warrant for making suicidal statements. He has denied suicidal thoughts but was not a reliable performance reporter as initially denied sending the texts to his daughter intermittently since May. 302 was upheld given high risk patient with multiple medical co- moribidites and active PFA (by ) for past threats. There is a warrant for his arrest for a PFA violation on the chart (patient unaware). He maintains that he his only trying to engage his family around issues related to the house and that it going into foreclosure would "get back at" his by wrecking her credit. Documentation from the daughter is that texts this month have been increasingly hopeless and indicated he may harm himself. He maintains that "I just wanted to get their attention." He states that he cannot maintain his home and get to medical appointments due to his amputation (due to leg infections last year). He states he no longer has services with [facility] and was feeling more hopeful when he got his prosthetic leg recently but can't get to PT, etc. As far as any vegetative symptoms of depression they would be difficult to differentiate from his chronic medical issues. He is hopeless with regards to his relationship with his family. "none of them give a damn". His sleep is not as good over the past 1-2 weeks as not able to use his bipap due to blocked sinuses and states that fluid in his ears causes vertigo which makes it harder to ambulate/contributes to falls. States he can't get groceries. Past Psychiatric History Current Psychiatric Diagnosis: depressive disorder Outpatient Services: may have an outpatient therapist but can't recall name (?[facility]) Previous Psych Admissions: denied Do You Have Access To A Gun?: No (were removed by police due to PFA (per ED chart/daughter)) Describe Attempts in the Past: Denies Past Medication Trials: states on Zoloft for 3 months, unsure if helpful. Allergies Allergy/AdvReac Type Severity Reaction Status Date / Time benzonatate AdvReac Intermediate choking, Verified 12/28/20 21:19 gagging Home Medications Medication Instructions Recorded Confirmed Type fluticasone propionate 50 2 sprays INTNAS BID gm 12/21/17 08/07/21 History mcg/actuation nasal spray,suspension (Flonase Allergy Relief) mometasone-formoterol HFA 200 2 puffs INH BID 12/21/17 08/07/21 History mcg-5 mcg/actuation aerosol inhaler (Dulera) omeprazole 20 mg capsule,delayed 20 mg PO QAM 12/21/17 08/07/21 History release ergocalciferol (vitamin D2) 62.5 50,000 unit PO WK 04/12/19 08/07/21 History mcg (2,500 unit) capsule gabapentin 300 mg capsule 300 mg PO TID 04/12/19 08/07/21 History clobetasol 0.05 % topical cream 1 applic TOPICAL BID PRN 01/18/20 08/07/21 History albuterol sulfate 90 mcg/actuation 2 puff INHALATION QID PRN 05/30/20 08/07/21 History aerosol inhaler (Ventolin HFA) aspirin 81 mg tablet,delayed 81 mg PO QAM 06/12/20 08/07/21 History release warfarin 1 mg tablet 3 mg PO SUTH 07/12/20 08/07/21 History potassium chloride 20 mEq 20 meq PO DAILY #30 tab 08/23/20 08/07/21 Rx tablet,extended release hydrocodone 5 mg-acetaminophen 325 1 tab PO Q6H PRN 12/13/20 08/07/21 History mg tablet levothyroxine 88 mcg tablet 88 mcg PO DAILY 12/13/20 08/07/21 History metoprolol succinate 25 mg 25 mg PO BID 12/13/20 08/07/21 History tablet,extended release 24 hr metoprolol succinate 50 mg 50 mg PO BID 12/13/20 08/07/21 History tablet,extended release 24 hr spironolactone 25 mg tablet 25 mg PO DAILY 12/13/20 08/07/21 History atorvastatin 80 mg tablet 80 mg PO HS #0 tab 12/21/20 08/07/21 Rx magnesium oxide 400 mg PO DAILY 08/08/21 08/08/21 History sertraline 25 mg tablet 25 mg PO DAILY 08/08/21 08/08/21 History warfarin 4 mg tablet See Rx Instructions .ROUTE .COMPLEX 08/08/21 08/08/21 Hist ory Family History Family History of: Doesn't Know Alcohol History Hx of Alcohol Use Over the Past 12 Months: No AUDIT Total Score: 0 Smoking Use Have You Smoked or Used Tobacco Products in the Last 30 Days: No Smoking Status: Never smoker Substance History Hx of Prescription Med Misuse Over the Past 12 Months: No Hx of Over the Counter Med Misuse Over the Past 12 Months: No Hx of Inhalent Misuse Over the Past 12 Months: No Hx of Organic Substance Use Over the Past 12 Months: No Hx of Illegal Substances/Street Drug Use Over Past 12 Months: No Problems as a Result of Past Substance Use: None Identified Personal History Living Arrangements: Home Highest Grade Completed: College Employment Status: Disabled Marital Status: Beliefs That Will Affect Care: None Current Legal Problems: Yes Hx Traumatic Life Events: No Patient History Medical History Acute hypoxemic respiratory failure Acute on chronic combined systolic (congestive) and diastolic (congestive) heart failure Acute on chronic renal failure Acute osteomyelitis of left foot Arthritis Asthma well controlled, 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 Bacteremia due to group B Streptococcus CAD (coronary artery disease) Cardiac defibrillator in situ 2007 with replacement 03/2020. follows [address] Dr[address] Maya. Cellulitis of left lower leg CHF (congestive heart failure) CKD (chronic kidney disease) stage 3, GFR 30-59 ml/min Deformity of foot Depression Diabetes type 2, uncontrolled Diabetic peripheral neuropathy associated with type 2 diabetes mellitus Diabetic ulcer of left foot associated with type 2 diabetes mellitus, with fat layer exposed Diabetic ulcer of left heel associated with diabetes mellitus due to underlying condition, limited to breakdown of skin Diabetic ulcer of right foot Dyslipidemia GERD (gastroesophageal reflux disease) H/O osteomyelitis History of diabetic ulcer of foot Hx of myocardial infarction found on testing Hx of osteomyelitis Hx of sepsis 06/2019 Hypertension Hypokalemia Hypothyroidism Ischemic cardiomyopathy Adams fracture Base of left fifth metatarsal, nonhealing x years Lymphedema Morbid obesity Peripheral arterial disease Pneumonia due to COVID-19 virus Rectal bleeding SARS-CoV-2 positive Sepsis Sleep apnea BIPAP Sustained VT (ventricular tachycardia) T2DM (type 2 diabetes mellitus) Venous stasis ulcer of right lower leg with edema of right lower leg Vitamin D deficiency Surgical History H/O cardiac radiofrequency ablation OCTOBER 2019 (TACHY) AT [facility] H/O foot surgery LEFT FOOT ULCER DEBRIDEMENT H/O shoulder surgery left History of cardiac cath V. tach -- no stent. 06/2019. unsure where it was done History of colonoscopy History of esophagogastroduodenoscopy (EGD) History of sinus surgery Hx of amputation of lesser toe Hx of tonsillectomy Family History Sister Family history of diabetes mellitus 2 Grandmother (Maternal) Family history of diabetes mellitus Grandfather (Maternal) Family history of diabetes mellitus Father Cancer Mother Cancer Other No family history of adverse response to anesthesia Social History Smoking Status: Never smoker Second Hand Exposure: No; Hx Alcohol Use: No Hx Substance Use: No Preferred Language: Divehi Communication Ability: Effective Analysis Manager Required: No Beliefs That Will Affect Care: None marital status: Current Living Situation: Alone current occupational status: disabled How many Children do You have: 3 Feels Safe at Home: No Is there a partner from a previous relationship who is making you feel unsafe now?: No Assistive Devices: Cane, Glasses and Special Shoe Review of Systems Review of Systems: All systems reviewed & are unremarkable except as noted in HPI & below Physical Exam Psychiatric: Orientation: alert and oriented x 3 Apperance: appropriately dressed and + disheveled Eye Contact: + fair eye contact Motor Behavior: no abnormal motor movements Speech: normal rate/rhythm/volume of speech Affect: + depressed affect Mood: + depressed mood Thought Process: goal directed thought process Thought Content: reality based without delusions Suicidal Thoughts: denies suicidal thoughts Homicidal Thoughts: denies homicidal thoughts Hallucinations: no auditory hallucinations and no visual hallucinations Cognition: attention grossly intact and language grossly intact Estimated Intelligence: consistent with education level Insight: + limited insight Judgement: + limited judgement Vital Signs (Past 24 Hours): Last Vital Signs Temp 36.8 C 08/08/21 07:03 Pulse 71 08/08/21 07:03 Resp 18 08/08/21 07:03 BP 139/84 08/08/21 07:03 Pulse Ox 95 08/08/21 07:03 Exam Statement: A physical exam was performed in the ED by Dr. Contreras for the purposes of medical clearance. I accept that physical as correct and adequate for the purposes of the inpatient physical exam. Results & Data ([facility]) Laboratory Results Laboratory Results - last 24 hr 08/07/21 08/07/21 08/07/21 16:35 16:35 16:35 WBC RBC Hgb Hct MCV MCH MCHC RDW Std Deviation RDW Coeff of Мария Plt Count MPV Immature Gran % (Auto) Neut % (Auto) Lymph % (Auto) Benson % (Auto) Eos % (Auto) Baso % (Auto) Neut # (Auto) Lymph # (Auto) Benson # (Auto) Eos # (Auto) Baso # (Auto) Immature Gran # (Auto) PT INR APTT PTT Ratio Sodium Potassium Chloride Carbon Dioxide Anion Gap BUN Creatinine Est Cr Clr Drug Dosing Est GFR ( Amer) Est GFR (Non-Af Amer) BUN/Creatinine Ratio Glucose POC Glucose Calcium Total Bilirubin AST ALT Alkaline Phosphatase Troponin I High Sens Total Protein Albumin Globulin Albumin/Globulin Ratio TSH Urine Color Yellow Urine Appearance Clear Urine pH 6.5 Ur Specific [place] 1.010 Urine Protein 2+ H Urine Glucose (UA) Negative Urine Ketones Negative Urine Blood 1+ H Urine Nitrite Negative Urine Bilirubin Negative Urine Urobilinogen Negative Ur Leukocyte Esterase Negative Urine WBC (Auto) 0 Urine RBC (Auto) 0-4 U Hyaline Cast (Auto) 1-5 U Epithel Cells (Auto) 10-20 H Urine Bacteria (Auto) Negative Salicylates Urine Opiates Screen Pos H U Codeine Confrm GC/MS Pending Ur Morphine (GC/MS) Pending Ur Hydrocodone (GC/MS) Pending Ur Norhydrocodone Pending Ur Noroxycodone Pending Urine Oxycodone (GC/MS) Pending U Oxymorphone GC/MS Pending Ur Methadone, Qual Neg Ur Hydromorphone (GC/MS) Pending Acetaminophen Urine Barbiturates Neg Ur Phencyclidine (PCP) Neg U Amphetamin/Meth Scrn Neg MDMA (Ecstasy) Screen Neg U Benzodiazepines Scrn Neg Ur Cocaine Metabolite Neg U Marijuana (THC) Screen Neg Drug Screen Comment Pending Ethyl Alcohol mg/dL SARS-CoV-2, RNA, NAAT 08/07/21 08/07/21 08/07/21 16:45 16:45 16:45 WBC 9.24 RBC 5.29 Hgb 15.7 Hct 47.7 MCV 90.2 MCH 29.7 MCHC 32.9 RDW Std Deviation 53.2 H RDW Coeff of Мария 16.0 H Plt Count 222 MPV 9.8 Immature Gran % (Auto) 0.4 Neut % (Auto) 79.5 Lymph % (Auto) 7.1 Benson % (Auto) 12.4 Eos % (Auto) 0.3 Baso % (Auto) 0.3 Neut # (Auto) 7.33 H Lymph # (Auto) 0.66 L Benson # (Auto) 1.15 H Eos # (Auto) 0.03 Baso # (Auto) 0.03 Immature Gran # (Auto) 0.04 H PT 18.8 H INR 1.8 H APTT 35.7 H PTT Ratio 1.3 Sodium 135 L Potassium 4.0 Chloride 100 Carbon Dioxide 27 Anion Gap 8 BUN 38 H Creatinine 1.53 H Est Cr Clr Drug Dosing Not Reportable Est GFR ( Amer) 57.7 Est GFR (Non-Af Amer) 49.7 BUN/Creatinine Ratio 24.8 H Glucose 158 H POC Glucose Calcium 9.3 Total Bilirubin 1.1 H AST 15 ALT 13 Alkaline Phosphatase 114 H Troponin I High Sens 15.0 Total Protein 8.5 H Albumin 3.9 Globulin 4.6 H Albumin/Globulin Ratio 0.8 L TSH Urine Color Urine Appearance Urine pH Ur Specific [place] Urine Protein Urine Glucose (UA) Urine Ketones Urine Blood Urine Nitrite Urine Bilirubin Urine Urobilinogen Ur Leukocyte Esterase Urine WBC (Auto) Urine RBC (Auto) U Hyaline Cast (Auto) U Epithel Cells (Auto) Urine Bacteria (Auto) Salicylates Urine Opiates Screen U Codeine Confrm GC/MS Ur Morphine (GC/MS) Ur Hydrocodone (GC/MS) Ur Norhydrocodone Ur Noroxycodone Urine Oxycodone (GC/MS) U Oxymorphone GC/MS Ur Methadone, Qual Ur Hydromorphone (GC/MS) Acetaminophen Urine Barbiturates Ur Phencyclidine (PCP) U Amphetamin/Meth Scrn MDMA (Ecstasy) Screen U Benzodiazepines Scrn Ur Cocaine Metabolite U Marijuana (THC) Screen Drug Screen Comment Ethyl Alcohol mg/dL SARS-CoV-2, RNA, NAAT 08/07/21 08/07/21 08/07/21 16:45 16:45 16:45 WBC RBC Hgb Hct MCV MCH MCHC RDW Std Deviation RDW Coeff of Мария Plt Count MPV Immature Gran % (Auto) Neut % (Auto) Lymph % (Auto) Benson % (Auto) Eos % (Auto) Baso % (Auto) Neut # (Auto) Lymph # (Auto) Benson # (Auto) Eos # (Auto) Baso # (Auto) Immature Gran # (Auto) PT INR APTT PTT Ratio Sodium Potassium Chloride Carbon Dioxide Anion Gap BUN Creatinine Est Cr Clr Drug Dosing Est GFR ( Amer) Est GFR (Non-Af Amer) BUN/Creatinine Ratio Glucose POC Glucose Calcium Total Bilirubin AST ALT Alkaline Phosphatase Troponin I High Sens Total Protein Albumin Globulin Albumin/Globulin Ratio TSH 1.914 Urine Color Urine Appearance Urine pH Ur Specific [place] Urine Protein Urine Glucose (UA) Urine Ketones Urine Blood Urine Nitrite Urine Bilirubin Urine Urobilinogen Ur Leukocyte Esterase Urine WBC (Auto) Urine RBC (Auto) U Hyaline Cast (Auto) U Epithel Cells (Auto) Urine Bacteria (Auto) Salicylates < 3.0 L Urine Opiates Screen U Codeine Confrm GC/MS Ur Morphine (GC/MS) Ur Hydrocodone (GC/MS) Ur Norhydrocodone Ur Noroxycodone Urine Oxycodone (GC/MS) U Oxymorphone GC/MS Ur Methadone, Qual Ur Hydromorphone (GC/MS) Acetaminophen < 3 L Urine Barbiturates Ur Phencyclidine (PCP) U Amphetamin/Meth Scrn MDMA (Ecstasy) Screen U Benzodiazepines Scrn Ur Cocaine Metabolite U Marijuana (THC) Screen Drug Screen Comment Ethyl Alcohol mg/dL < 10.0 SARS-CoV-2, RNA, NAAT 08/07/21 08/08/21 08/08/21 16:45 01:23 07:44 WBC RBC Hgb Hct MCV MCH MCHC RDW Std Deviation RDW Coeff of Мария Plt Count MPV Immature Gran % (Auto) Neut % (Auto) Lymph % (Auto) Benson % (Auto) Eos % (Auto) Baso % (Auto) Neut # (Auto) Lymph # (Auto) Benson # (Auto) Eos # (Auto) Baso # (Auto) Immature Gran # (Auto) PT INR APTT PTT Ratio Sodium Potassium Chloride Carbon Dioxide Anion Gap BUN Creatinine Est Cr Clr Drug Dosing Est GFR ( Amer) Est GFR (Non-Af Amer) BUN/Creatinine Ratio Glucose POC Glucose 136 H 169 H Calcium Total Bilirubin AST ALT Alkaline Phosphatase Troponin I High Sens Total Protein Albumin Globulin Albumin/Globulin Ratio TSH Urine Color Urine Appearance Urine pH Ur Specific [place] Urine Protein Urine Glucose (UA) Urine Ketones Urine Blood Urine Nitrite Urine Bilirubin Urine Urobilinogen Ur Leukocyte Esterase Urine WBC (Auto) Urine RBC (Auto) U Hyaline Cast (Auto) U Epithel Cells (Auto) Urine Bacteria (Auto) Salicylates Urine Opiates Screen U Codeine Confrm GC/MS Ur Morphine (GC/MS) Ur Hydrocodone (GC/MS) Ur Norhydrocodone Ur Noroxycodone Urine Oxycodone (GC/MS) U Oxymorphone GC/MS Ur Methadone, Qual Ur Hydromorphone (GC/MS) Acetaminophen Urine Barbiturates Ur Phencyclidine (PCP) U Amphetamin/Meth Scrn MDMA (Ecstasy) Screen U Benzodiazepines Scrn Ur Cocaine Metabolite U Marijuana (THC) Screen Drug Screen Comment Ethyl Alcohol mg/dL SARS-CoV-2, RNA, NAAT NEGATIVE 08/08/21 12:26 WBC RBC Hgb Hct MCV MCH MCHC RDW Std Deviation RDW Coeff of Мария Plt Count MPV Immature Gran % (Auto) Neut % (Auto) Lymph % (Auto) Benson % (Auto) Eos % (Auto) Baso % (Auto) Neut # (Auto) Lymph # (Auto) Benson # (Auto) Eos # (Auto) Baso # (Auto) Immature Gran # (Auto) PT INR APTT PTT Ratio Sodium Potassium Chloride Carbon Dioxide Anion Gap BUN Creatinine Est Cr Clr Drug Dosing Est GFR ( Amer) Est GFR (Non-Af Amer) BUN/Creatinine Ratio Glucose POC Glucose 255 H Calcium Total Bilirubin AST ALT Alkaline Phosphatase Troponin I High Sens Total Protein Albumin Globulin Albumin/Globulin Ratio TSH Urine Color Urine Appearance Urine pH Ur Specific [place] Urine Protein Urine Glucose (UA) Urine Ketones Urine Blood Urine Nitrite Urine Bilirubin Urine Urobilinogen Ur Leukocyte Esterase Urine WBC (Auto) Urine RBC (Auto) U Hyaline Cast (Auto) U Epithel Cells (Auto) Urine Bacteria (Auto) Salicylates Urine Opiates Screen U Codeine Confrm GC/MS Ur Morphine (GC/MS) Ur Hydrocodone (GC/MS) Ur Norhydrocodone Ur Noroxycodone Urine Oxycodone (GC/MS) U Oxymorphone GC/MS Ur Methadone, Qual Ur Hydromorphone (GC/MS) Acetaminophen Urine Barbiturates Ur Phencyclidine (PCP) U Amphetamin/Meth Scrn MDMA (Ecstasy) Screen U Benzodiazepines Scrn Ur Cocaine Metabolite U Marijuana (THC) Screen Drug Screen Comment Ethyl Alcohol mg/dL SARS-CoV-2, RNA, NAAT Diagnostic Findings EKG reviewed. Cleared by ED. Current Inpatient Medications Current Inpatient Medications: Current Inpatient Medications Acetaminophen (Acetaminophen 325 Mg Tab) 650 mg PO Q4H PRN PRN Reason: Headache or Minor Fever Stop: 09/07/21 03:04 Hydrocodone Bitart/Acetaminophen (Hydrocodone/Acetamophen 5/325mg Tab) 1 tab PO Q6 PRN PRN Reason: Pain Stop: 08/22/21 10:30 Last Admin: 08/08/21 12:05 Dose: 1 tab Documented by: Al Hydrox/Mg Hydrox/Simethicone (Aluminum/Magnesium Susp 30 Ml Udc) 30 ml PO Q4H PRN PRN Reason: GI Upset Stop: 09/07/21 03:04 Albuterol (Albuterol Hfa 8 Gm Inhaler) 2 puffs INH Q4 PRN PRN Reason: wheezing Stop: 09/07/21 10:26 Aspirin (Aspirin 81 Mg Ectab) 81 mg PO QAM MATT Stop: 09/07/21 10:29 Last Admin: 08/08/21 11:25 Dose: 81 mg Documented by: Dextrose (Dextrose 50% 50 Ml Syringe) 25 - 50 ml IV UD PRN; Protocol PRN Reason: Hypoglycemia Protocol Stop: 09/07/21 06:14 Diphenhydramine HCl (Diphenhydramine Capsule 25 Mg Cap) 25 mg PO Q6 PRN PRN Reason: anxiety, sleep, congestion Stop: 09/07/21 10:23 Fluticasone Furoate (Fluticasone Furoate 100mcg 14 Puffs/Inhaler) 1 puffs INH DAILY [facility] Stop: 09/08/21 10:59 Last Admin: 08/08/21 12:05 Dose: 1 puffs Documented by: Fluticasone Propionate (Fluticasone Propionate Na Spr 16 Gm Btl) 2 sprays NA BID MATT Stop: 09/07/21 10:44 Last Admin: 08/08/21 12:03 Dose: 2 sprays Documented by: Gabapentin (Gabapentin 300 Mg Cap) 300 mg PO TID MATT Stop: 09/07/21 10:34 Last Admin: 08/08/21 12:02 Dose: 300 mg Documented by: Glucagon (Glucagon For Inj 1 Mg Vial) 1 mg IM UD PRN; Protocol PRN Reason: Hypoglycemia Protocol Stop: 09/07/21 06:14 Glucose (Glucose 40% Gel 15 Gm Tube) 15 - 30 gm PO UD PRN; Protocol PRN Reason: Hypoglycemia Protocol Stop: 09/07/21 06:14 Glucose (Glucose 10 Tabs/Tube) 4 - 8 tabs PO UD PRN; Protocol PRN Reason: Hypoglycemia Protocol Stop: 09/07/21 06:14 Hydrocortisone (Hydrocortisone 1% Crm 30 Gm Tube) 1 appln EXT BID PRN PRN Reason: itching Stop: 09/07/21 10:26 Insulin Aspart (Insulin Aspart Per Unit) 0 units SC ACHS [facility] Stop: 09/07/21 07:59 Last Admin: 08/08/21 12:53 Dose: 25 units Documented by: Insulin Glargine (Insulin Glargine Solostar 100 Units/Ml 3 Ml Pen) 50 units SC DAILY@1200 [facility] Stop: 09/08/21 11:59 Levothyroxine Sodium (Levothyroxine Sodium 88 Mcg Tablet) 88 mcg PO DAILYBB [facility] Stop: 09/07/21 10:34 Last Admin: 08/08/21 12:02 Dose: 88 mcg Documented by: Magnesium Hydroxide (Magnesium Hydroxide Susp 30 Ml Udc) 30 ml PO DAILY PRN PRN Reason: Constipation Stop: 09/07/21 03:04 Magnesium Oxide (Magnesium Oxide 400 Mg Tab) 400 mg PO DAILY [facility] Stop: 09/07/21 10:29 Last Admin: 08/08/21 11:25 Dose: 400 mg Documented by: Metoprolol Succinate (Metoprolol Succ 25mg Ext Rel Tab) 75 mg PO BID [facility] Stop: 09/07/21 10:44 Last Admin: 08/08/21 12:03 Dose: 75 mg Documented by: Miscellaneous (Carbohydrates For Hypoglycemia ) 15 - 30 gm PO UD PRN PRN Reason: Hypoglycemia Treatment Stop: 09/07/21 06:14 Miscellaneous Information (Pharmacy Glycemic Mgmt Consult) 1 ea N/A UD PRN PRN Reason: Consult Stop: 09/07/21 04:31 Pantoprazole Sodium (Pantoprazole 40 Mg Tab) [facility] [place] Stop: 09/07/21 10:29 Last Admin: 08/08/21 11:25 Dose: 40 mg Documented by: Potassium Chloride (Potassium Chloride Crtab 20 Meq Tabcr) 20 meq [facility] [place] Stop: 09/07/21 10:29 Last Admin: 08/08/21 11:26 Dose: 20 meq Documented by: Sertraline HCl (Sertraline Hcl 50 Mg Tablet) 25 mg PO DAILY [facility] Stop: 09/07/21 10:29 Last Admin: 08/08/21 11:26 Dose: 25 mg Documented by: Sodium Chloride (Sodium Chloride 0.65% Na Soln 45 Ml ([place])) 1 - 2 sprays NA PRN PRN PRN Reason: Nasal Dryness/Congestion Stop: 09/07/21 03:04 Spironolactone (Spironolactone 25 Mg Tab) [facility] [place] Stop: 09/07/21 10:44 Last Admin: 08/08/21 12:04 Dose: 25 mg Documented by: Warfarin Sodium (Warfarin Sod 4 Mg Tab) 4 mg PO MoTuWeFrSa@1600 [facility] Stop: 09/08/21 15:59 Warfarin Sodium (Warfarin Sod 3 Mg Tab) 3 mg PO SuTh@1600 [facility] Stop: 09/07/21 15:59
[2021-08-08] MEDS ORDERED: WARFARIN SOD 3 MG TAB PO SCH ×2 (16:00)
[2021-08-08] MEDS ORDERED: ATORVASTATIN 40 MG TAB PO SCH (21:00)
[2021-08-08] MEDS ORDERED: MOMETASONE FUROATE 14 PUFF/1 INHALER INH SCH (21:00)
[2021-08-08] MEDS: AMOXICILLIN 500 MG CAP PO SCH (21:30)
[2021-08-09] MEDS: HYDROCODONE/ACETAMOPHEN 5/325MG TAB PO PRN ×2 (03:13→20:34)
--- NOTE | 2021-08-09 05:58 | Electrocardiogram Report ---
Test Reason : Blood Pressure : / mmHG Vent. Rate : 075 BPM Atrial Rate : 075 BPM P-R Int : 214 ms QRS Dur : 110 ms QT Int : 408 ms P-R-T Axes : 035 108 -52 degrees QTc Int : 455 ms Sinus rhythm with 1st degree A-V block with occasional Premature ventricular complexes Possible Inferior infarct , age undetermined Anterolateral infarct (cited on or before 16-AUG-2020) T wave abnormality, consider inferior ischemia Abnormal ECG When compared with ECG of 28-DEC-2020 21:03, Premature ventricular complexes are now Present T wave inversion now evident in Inferior leads Confirmed by Gee Robison ([id number]) on 08/09/2021 5:57:27 AM Referred By: REFERRED SELF Confirmed By:Gee Robison
--- NOTE | 2021-08-09 06:06 | Electrocardiogram Report ---
Test Reason : Blood Pressure : / mmHG Vent. Rate : 071 BPM Atrial Rate : 071 BPM P-R Int : 226 ms QRS Dur : 110 ms QT Int : 412 ms P-R-T Axes : 032 -45 113 degrees QTc Int : 447 ms Sinus rhythm with sinus arrhythmia with 1st degree A-V block Left anterior fascicular block Anterolateral infarct (cited on or before 16-AUG-2020) T wave abnormality, consider lateral ischemia Abnormal ECG When compared with ECG of 07-AUG-2021 16:52, Premature ventricular complexes are no longer Present Left anterior fascicular block is now Present T wave inversion no longer evident in Inferior leads Confirmed by Gee Robison ([id number]) on 08/09/2021 6:06:06 AM Referred By: REFERRED SELF Confirmed By:Gee Robison
[2021-08-09] MEDS: AMOXICILLIN 500 MG CAP PO SCH ×3 (08:36→20:41)
[2021-08-09] MEDS: LEVOTHYROXINE SODIUM 88 MCG TABLET PO SCH (08:36)
[2021-08-09] MEDS: FLUTICASONE PROPIONATE NA SPR 16 GM BTL SCH ×2 (08:37→20:41)
[2021-08-09] MEDS: MAGNESIUM OXIDE 400 MG TAB PO SCH (08:37)
[2021-08-09] MEDS: GABAPENTIN 300 MG CAP PO SCH ×3 (08:37→20:41)
[2021-08-09] MEDS: ASPIRIN 81 MG ECTAB PO SCH (08:37)
[2021-08-09] MEDS: SERTRALINE HCL 50 MG TABLET PO SCH (08:38)
[2021-08-09] MEDS: POTASSIUM CHLORIDE CRTAB 20 MEQ TABCR PO SCH (08:38)
[2021-08-09] MEDS: PANTOprazole 40 MG TAB PO SCH (08:38)
[2021-08-09] MEDS: METOPROLOL SUCC 25MG EXT REL TAB PO SCH ×2 (08:38→20:41)
[2021-08-09] MEDS: SPIRONOLACTONE 25 MG TAB PO SCH (08:39)
--- NOTE | 2021-08-09 08:42 | Psychiatric Progress Note ---
Date of Service August 09, 2021 Impression / Recommendations Impression 55 yo male with depressive symptoms in the context of multiple medical problems and estrangement of , most significantly the amputation resulting in limited mobility. He is on a 302 warrant. Diagnostically consistent with MDD with contribution from chronic pain and medical co-morbidities. Moderate acute risk given statements prior to admission of possible SI though denying since admission and reports stable mood and reasons for living including his pets. He is on MNPR given multiple medical issues, amputee, 302 status, etc. 08/09/21: mood is stable, discussed social work efforts to involve more home hea lth services and consider mailing his medications which he is appreciative of, remains eager to leave the hospital as soon as possible. No aggressive or violent behavior and continues to deny HI. (1) Depression with suicidal ideation: (2) History of amputation of left foot: (3) Chronic kidney disease: (4) Diabetes type 2, uncontrolled: (5) Hypothyroidism: (6) NINA on CPAP: (7) Asthma: 08/09/21: Continue with medications and tx plan. 08/08/21: The patient was admitted to the [facility] ([facility] unit) on q15 min checks (behavioral with suicide precautions) for safety. The patient will participate in group, recreational, and milieu therapies and will be offered additional individual and family sessions as clinically appropriate. He is unsure if he wants to increase Zoloft at this time. His main request is regarding services and is agreeable to sign ROIs for [facility] care management. In meantime, PT assessment. He reports med compliance, but then adds "when I can get them" and is currently subtherapeutic on coumadin as target INR generally 2.1. Coumadin protocol. Glycemic management consult for diabetes. He complains of ear pain, no significant fluid was noted but some clouding and no insufflator bulb. He had pain with movement of pinna, given chronic sinusitis and inability to use bipap, reports plan to resume antibiotics. Rx presumed sinusitis with Amoxicillin for 10 days. Inventory Assets Strengths: knowledgable re: med list, wants to re-engage services Needs: in home supports Risk Factors Assessment Male: Yes : Yes Do You Have Access To A Gun?: No (Removed by police due to PFA) Health Problems: Yes Mental Health Diagnoses: Yes Substance Use Disorders: No Previous Attempt: No Protective Factors Assessment Employed: No Stable Relationships: No Supportive Family: No Interval History Identifying Information STANISLAW ALCANTAR is a 55-year-old M who currently lives in [place] and was admitted on 08/08/21 01:16 on a 302 involuntary commitment for text messages to harm self/others. Chief Complaint "I'm doing a lot better". Review of Systems Sleep Information Total Hours of Sleep: 5.75 Meal Information Percent Meal Consumed - Breakfast: 75 Percent Meal Consumed - Lunch: 100 Percent Meal Consumed - Dinner: 100 Subjective Subjective Patient was seen & assessed and interval progress reviewed with treatment team nursing and social work. Has significant pain, especially in unit chairs, so remaining in his bed for most of the day. Reviewed with staff meaning behind his text exchanges resulting in 302 status and that he was not threatening but rather speaking to financial consequences and that ultimately someone will need to pay the bills that could result in his home foreclosure. Today endorses stable mood, denies SI and HI. Reviewed his current home health services. He is interested in having medications delivered by mail though notes challenge of paying for his medications so he prefers to stager when he buys them and isn't sure if this could be done if they are mailed. Notes that his dogs are a huge support for him and strong reason for living. Physical Exam Psychiatric Orientation: alert and oriented x 3 Apperance: appropriately dressed and appropriately groomed Eye Contact: good eye contact Motor Behavior: no abnormal motor movements Speech: normal rate/rhythm/volume of speech Affect: + constricted affect Mood: + depressed mood; no anxious mood Thought Process: goal directed thought process Thought Content: reality based without delusions Suicidal Thoughts: denies suicidal thoughts Homicidal Thoughts: denies homicidal thoughts Hallucinations: no auditory hallucinations and no visual hallucinations Cognition: attention grossly intact and language grossly intact Estimated Intelligence: consistent with education level Insight: + limited insight Judgement: + limited judgement Vital Signs (Past 24 Hours) Last Vital Signs Temp 36.5 C 08/09/21 06:48 Pulse 63 08/09/21 06:48 Resp 18 08/09/21 06:48 BP 119/79 08/09/21 06:50 Pulse Ox 97 08/09/21 06:48 Results & Data ([facility]) Laboratory Results Laboratory Results - last 24 hr 08/08/21 08/08/21 08/08/21 12:26 17:22 21:16 POC Glucose 255 H 301 H* 192 H 08/09/21 08:16 POC Glucose 154 H Current Inpatient Medications Current Inpatient Medications: Current Inpatient Medications Acetaminophen (Acetaminophen 325 Mg Tab) 650 mg PO Q4H PRN PRN Reason: Headache or Minor Fever Stop: 09/07/21 03:04 Hydrocodone Bitart/Acetaminophen (Hydrocodone/Acetamophen 5/325mg Tab) 1 tab PO Q6 PRN PRN Reason: Pain Stop: 08/22/21 10:30 Last Admin: 08/09/21 03:13 Dose: 1 tab Documented by: Al Hydrox/Mg Hydrox/Simethicone (Aluminum/Magnesium Susp 30 Ml Udc) 30 ml PO Q4H PRN PRN Reason: GI Upset Stop: 09/07/21 03:04 Albuterol (Albuterol Hfa 8 Gm Inhaler) 2 puffs INH Q4 PRN PRN Reason: wheezing Stop: 09/07/21 10:26 Amoxicillin (Amoxicillin 500 Mg Cap) 500 mg PO TID [facility] Stop: 08/18/21 20:59 Last Admin: 08/08/21 21:30 Dose: 500 mg Documented by: Aspirin (Aspirin 81 Mg Ectab) 81 mg PO QAM MATT Stop: 09/07/21 10:29 Last Admin: 08/08/21 11:25 Dose: 81 mg Documented by: Dextrose (Dextrose 50% 50 Ml Syringe) 25 - 50 ml IV UD PRN; Protocol PRN Reason: Hypoglycemia Protocol Stop: 09/07/21 06:14 Diphenhydramine HCl (Diphenhydramine Capsule 25 Mg Cap) 25 mg PO Q6 PRN PRN Reason: anxiety, sleep, congestion Stop: 09/07/21 10:23 Fluticasone Furoate (Fluticasone Furoate 100mcg 14 Puffs/Inhaler) 1 puffs INH DAILY MATT Stop: 09/08/21 10:59 Last Admin: 08/08/21 12:05 Dose: 1 puffs Documented by: Fluticasone Propionate (Fluticasone Propionate Na Spr 16 Gm Btl) 2 sprays NA BID MATT Stop: 09/07/21 10:44 Last Admin: 08/08/21 21:31 Dose: 2 sprays Documented by: Gabapentin (Gabapentin 300 Mg Cap) 300 mg PO TID MATT Stop: 09/07/21 10:34 Last Admin: 08/08/21 21:30 Dose: 300 mg Documented by: Glucagon (Glucagon For Inj 1 Mg Vial) 1 mg IM UD PRN; Protocol PRN Reason: Hypoglycemia Protocol Stop: 09/07/21 06:14 Glucose (Glucose 40% Gel 15 Gm Tube) 15 - 30 gm PO UD PRN; Protocol PRN Reason: Hypoglycemia Protocol Stop: 09/07/21 06:14 Glucose (Glucose 10 Tabs/Tube) 4 - 8 tabs PO UD PRN; Protocol PRN Reason: Hypoglycemia Protocol Stop: 09/07/21 06:14 Hydrocortisone (Hydrocortisone 1% Crm 30 Gm Tube) 1 appln EXT BID PRN PRN Reason: itching Stop: 09/07/21 10:26 Insulin Aspart (Insulin Aspart Per Unit) 0 units SC ACHS MATT Stop: 09/07/21 07:59 Last Admin: 08/08/21 21:44 Dose: 9 units Documented by: Insulin Glargine (Insulin Glargine Solostar 100 Units/Ml 3 Ml Pen) 50 units SC DAILY@1200 [facility] Stop: 09/08/21 11:59 Levothyroxine Sodium (Levothyroxine Sodium 88 Mcg Tablet) 88 mcg PO DAILYBB [facility] Stop: 09/07/21 10:34 Last Admin: 08/08/21 12:02 Dose: 88 mcg Documented by: Magnesium Hydroxide (Magnesium Hydroxide Susp 30 Ml Udc) 30 ml PO DAILY PRN PRN Reason: Constipation Stop: 09/07/21 03:04 Magnesium Oxide (Magnesium Oxide 400 Mg Tab) 400 mg PO DAILY MATT Stop: 09/07/21 10:29 Last Admin: 08/08/21 11:25 Dose: 400 mg Documented by: Metoprolol Succinate (Metoprolol Succ 25mg Ext Rel Tab) 75 mg PO BID [facility] Stop: 09/07/21 10:44 Last Admin: 08/08/21 21:30 Dose: 75 mg Documented by: Miscellaneous (Carbohydrates For Hypoglycemia ) 15 - 30 gm PO UD PRN PRN Reason: Hypoglycemia Treatment Stop: 09/07/21 06:14 Miscellaneous Information (Pharmacy Glycemic Mgmt Consult) 1 ea N/A UD PRN PRN Reason: Consult Stop: 09/07/21 04:31 Pantoprazole Sodium (Pantoprazole 40 Mg Tab) 40 mg PO QAM [facility] Stop: 09/07/21 10:29 Last Admin: 08/08/21 11:25 Dose: 40 mg Documented by: Potassium Chloride (Potassium Chloride Crtab 20 Meq Tabcr) 20 meq PO QAM [facility] Stop: 09/07/21 10:29 Last Admin: 08/08/21 11:26 Dose: 20 meq Documented by: Sertraline HCl (Sertraline Hcl 50 Mg Tablet) 25 mg PO DAILY [facility] Stop: 09/07/21 10:29 Last Admin: 08/08/21 11:26 Dose: 25 mg Documented by: Sodium Chloride (Sodium Chloride 0.65% Na Soln 45 Ml ([place])) 1 - 2 sprays NA PRN PRN PRN Reason: Nasal Dryness/Congestion Stop: 09/07/21 03:04 Spironolactone ([facility] 25 Mg Tab) [facility] Stop: 09/07/21 10:44 Last Admin: 08/08/21 12:04 Dose: 25 mg Documented by: Warfarin Sodium (Warfarin Sod 4 Mg Tab) 4 mg PO MoTuWeFrSa@1600 [facility] Stop: 09/08/21 15:59 Warfarin Sodium (Warfarin Sod 3 Mg Tab) 3 mg PO SuTh@1600 [facility] Stop: 09/07/21 15:59 Last Admin: 08/08/21 17:26 Dose: 3 mg Documented by: Mental Health & Subst Abuse Tx Therapist Name of Therapist: Kirstie Lynch Editor Producer Name of Editor Producer: None Post Discharge Appointments Primary Care Physician Name Of Family Doctor: Jessica Maya Primary Care Provider Appointment Comment: David Contact Information Discharge Discharge [address]: [address] [place] [id number] (1) Chronic kidney disease Chronic kidney disease stage: unspecified stage Qualified Code(s): N18.9 - Chronic kidney disease, unspecified
[2021-08-09 08:46] LABS: Prothrombin Time 20.9 Seconds (9.0-12.0)
[2021-08-09] MEDS: INSULIN ASPART PER UNIT SC SCH ×4 (08:51→21:30)
[2021-08-09] MEDS ORDERED: INSULIN GLARGINE SOLOSTAR 100 UNITS/ML 3 ML PEN SC SCH ×2 (12:00)
--- NOTE | 2021-08-09 12:20 | Pharmacy Report ---
Pharmacy Glycemic Short Note 2 - Date of Service August 09, 2021 - Glycemic Short BSG Results (Last 24 hours): 08/08/21 08/08/21 08/08/21 12:26 17:22 21:16 POC Glucose 255 H 301 H* 192 H 08/09/21 08:16 POC Glucose 154 H OUTPATIENT ANTIDIABETIC REGIMEN: * Tslim pump + CGM in auto mode * Basal rate self-adjusts but generally around 3 units/hr * CF 30 CR 4 ASSESSMENT: 08/09/21: * Valdo received 139 units of SQ insulin yesterday (50 units basal + 89 units bolus). BSG control improved greatly throughout the day. * Fasting BSG of 154 mg/dL is acceptable. Will slightly increase basal insulin today. * Novolog correction factor and carb ratio were tightened last evening at dinner, will continue for now 08/08/21: * Mr Lyle is a 55 y/o M with a PMH of T2DM on insulin pump at home. * Will initiate patient on Lantus 50 units SQ daily. Change administration time to noon to help with transition to home insulin pump when discharged. (Prevents giving Lantus in the morning when patient to be discharged that day.) This dose of Lantus has been effective during previous hospitalizations. This may require titration upwards to 60-65 units/day. * Initiate Novolog similar to previous admissions. PLAN FOR INPATIENT GLYCEMIC CONTROL: * Basal insulin * Lantus 55 units SQ daily @ noon * Bolus insulin * NovoLog per scale ACHS or Q6hrs while NPO * Goal Range: Low 110 mg/dL - High 140 mg/dL * Correction Factor: 10 mg/dL/unit * Nutritional / Prandial insulin per carb ratio of 1 unit per 3 grams CHO consumed
[2021-08-09] MEDS ORDERED: WARFARIN SOD 4 MG TAB PO SCH (16:00)
[2021-08-09 23:31] LABS: Codeine Urine NEGATIVE ng/mL (<50); Hydrocodone Urine 418 ng/mL (<50); Hydromor Urine 181 ng/mL (<50); Morphine Urine NEGATIVE ng/mL (<50); Norhydrocodone Conf Ur 127 ng/mL (<50); Noroxycodone Urine NEGATIVE ng/mL (<50); Oxycodone Urine NEGATIVE ng/mL (<50); Oxymorph Urine NEGATIVE ng/mL (<50)
[2021-08-10] MEDS: HYDROCODONE/ACETAMOPHEN 5/325MG TAB PO PRN (07:37)
[2021-08-10] MEDS: LEVOTHYROXINE SODIUM 88 MCG TABLET PO SCH (07:40)
[2021-08-10 08:45] LABS: INR 2.2 (0.9-1.1); Prothrombin Time 22.8 Seconds (9.0-12.0)
[2021-08-10] MEDS: AMOXICILLIN 500 MG CAP PO SCH (09:18)
[2021-08-10] MEDS: ASPIRIN 81 MG ECTAB PO SCH (09:18)
[2021-08-10] MEDS: FLUTICASONE PROPIONATE NA SPR 16 GM BTL SCH (09:20)
[2021-08-10] MEDS: FLUTICASONE FUROATE 100MCG 14 PUFFS/INHALER INH SCH (09:20)
[2021-08-10] MEDS: GABAPENTIN 300 MG CAP PO SCH (09:21)
[2021-08-10] MEDS: POTASSIUM CHLORIDE CRTAB 20 MEQ TABCR PO SCH (09:22)
[2021-08-10] MEDS: PANTOprazole 40 MG TAB PO SCH (09:22)
[2021-08-10] MEDS: MAGNESIUM OXIDE 400 MG TAB PO SCH (09:22)
[2021-08-10] MEDS: SERTRALINE HCL 50 MG TABLET PO SCH (09:23)
[2021-08-10] MEDS: SPIRONOLACTONE 25 MG TAB PO SCH (09:23)
[2021-08-10] MEDS: METOPROLOL SUCC 25MG EXT REL TAB PO SCH (09:33)
[2021-08-10] MEDS: INSULIN ASPART PER UNIT SC SCH (09:40)
--- NOTE | 2021-08-10 11:13 | Discharge Summary ---
Date of Service August 10, 2021 History of Present Illness From admission H&P by Dr. Blancas: Ben was brought to ED by police on a 302 warrant for making suicidal statements. 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 302 was upheld given high risk patient with multiple medical co- moribidites and active PFA (by ) for past threats. There is a warrant for his arrest for a PFA violation on the chart (patient unaware). He maintains that he his only trying to engage his family around issues related to the house and that it going into foreclosure would "get back at" his by wrecking her credit. Documentation from the daughter is that texts this month have been increasingly hopeless and indicated he may harm himself. He maintains that "I just wanted to get their attention." He states that he cannot maintain his home and get to medical appointments due to his amputation (due to leg infections last year). He states he no longer has services with [facility] and was feeling more hopeful when he got his prosthetic leg recently but can't get to PT, etc. As far as any vegetative symptoms of depression they would be difficult to differentiate from his chronic medical issues. He is hopeless with regards to his relationship with his family. "none of them give a damn". His sleep is not as good over the past 1-2 weeks as not able to use his bipap due to blocked sinuses and states that fluid in his ears causes vertigo which makes it harder to ambulate/contributes to falls. States he can't get groceries. Physical Exam Vital Signs (Past 24 Hours) Last Vital Signs Temp 36.5 C 08/10/21 06:00 Pulse 74 08/10/21 06:58 Resp 18 08/10/21 06:00 BP 132/83 08/10/21 06:58 Pulse Ox 97 08/09/21 06:48 See admission H&P and DOD summary. Principal Diagnosis Major Depressive Disorder Psychiatric Data See daily stay summary. In short, patient was engaged with the social/therapeutic milieu of the unit, safety was maintained and the patient was cooperative with care. There were no medication changes, he declined to increase sertraline as he felt his depression was well controlled. He consistently denied SI during his admission and spoke of many reasons for living including his dogs and less pain with walking/his amputation which made him feel encouraged. He consistently and convincingly denied HI and spoke at length with various clinicians and providers about the text message exchanges referenced in his 302 commitment. He requested discharge prior to the expiration of his 302 and this was felt to be appropriate given his stable mood, appropriate behavior and discussions with staff during his admission and it was not felt that he necessitated further inpatient psychiatric treatment to remain safe to self nor was he deemed to be a risk to others nor was it felt that he would require ongoing treatment to warrant a 303 commitment. We discussed the state police notification of his active arrest warrant which he was accepting of though noted he did not feel he had violated any PFAs. State Police were notified of his discharge and met him at time of discharge to be taken into custody. Reviewed that his biggest stressor is the potential foreclosure of his house but he feels if this ends up happening he can work with his bilingual patient support caseworker to determine other living options. If depression worsens in the future recommend further titration of sertraline. Discussed with Ben the recommendation from pharmacy to follow up with his primary care provider's office on 08/12/21 to see when they next want to check his INR, no changes were made to his warfarin dosage while he was admitted but his PT and INR were elevated. A safety plan was completed prior to discharge. In the days leading up to discharge he consistently denied any SI. He actively and insightfully participated in safety planning and in discussions about ways to seek support and recognizing warning signs and utilizing coping skills. Reviewed importance of seeking emergency care should SI intensify, worsen or should they feel unsafe in the future which they agree to do. On the day of discharge he stated his mood was "good" though he was hopeful he would not be going to assisted for an extended period of time and remained future-oriented including spending time with his dogs, and engaging in aftercare appointments including with home health and sorting out financial issues with his housing. Day of Discharge Assessment Today the patient voices readiness for discharge. They note improvement in mood and anxiety. They deny thoughts of harm to self or others. Thoughts are organized and they are clinically improved from admission. There is no evidence of psychosis. They improved in the hospital with support. They agree to take medications as prescribed and keep follow-up appointments. At the time of the discharge they are deemed to be stable and appropriate for outpatient level of care. They are not deemed to be at imminent risk of harm to self or others. They are aware of emergency and crisis services. Knows to call 911 or go to nearest emergency care center if in a crisis which cannot be handled as an outpatient. Transition of Care Transition Of Care Record: was reviewed with the patient Advance Directives Advance Directives Information Provided: Yes Advance Directives: No Mental Health Advance Directive: No Advance Directives on File: No Living Will: No Power of Glass Engraver: No Advance Directives Reason:: Declines as Mental Health Visit. Risk Factors Assessment Acute risk is low given improvement in mood and denial of SI, lack of access to lethal means, hopefulness, future-oriented. Chronic risk is moderate given psychiatric co-morbid diagnoses, periods of impulsivity, chronic illness, poor social support, mood disorder and few protective factors, risk will also increase if he loses his housing which we reviewed. Counseled on ways to reduce acute and chronic risk including engaging with outpatient providers, using safety plan if needed, utilizing supports, taking medication, and using coping skills. Modifiable risk factors of SI and depression were addressed during hospitalization through development of new coping skills, increasing support through home health services, and safety planning. Acute risk of harm to others is low given denial of HI and no aggressive or impulsive behaviors during admission and ability to discuss ways to avoid conflict with others and no access to lethal means. May also be incarcerated for some period of time which lowers imminent/acute risk. Chronic risk is moderate given history of legal charges of PFA and current warrant for violating PFA which could re-occur in the future. Male: Yes : Yes Do You Have Access To A Gun?: No (Removed by police due to PFA) Health Problems: Yes Mental Health Diagnoses: Yes Substance Use Disorders: No Previous Attempt: No Hopelessness: No Protective Factors Assessment Employed: No Stable Relationships: No Supportive Family: No Good Rapport with Provider: Yes Discharge Data Lab Results 08/07/21 08/07/21 08/07/21 16:35 16:35 16:35 WBC RBC Hgb Hct MCV MCH MCHC RDW Std Deviation RDW Coeff of Мария Plt Count MPV Immature Gran % (Auto) Neut % (Auto) Lymph % (Auto) Hutchinson % (Auto) Eos % (Auto) Baso % (Auto) Neut # (Auto) Lymph # (Auto) Hutchinson # (Auto) Eos # (Auto) Baso # (Auto) Immature Gran # (Auto) PT INR APTT PTT Ratio Sodium Potassium Chloride Carbon Dioxide Anion Gap BUN Creatinine Est Cr Clr Drug Dosing Est GFR ( Amer) Est GFR (Non-Af Amer) BUN/Creatinine Ratio Glucose POC Glucose Calcium Total Bilirubin AST ALT Alkaline Phosphatase Troponin I High Sens Total Protein Albumin Globulin Albumin/Globulin Ratio TSH Urine Color Yellow Urine Appearance Clear Urine pH 6.5 Ur Specific [place] 1.010 Urine Protein 2+ H Urine Glucose (UA) Negative Urine Ketones Negative Urine Blood 1+ H Urine Nitrite Negative Urine Bilirubin Negative Urine Urobilinogen Negative Ur Leukocyte Esterase Negative Urine WBC (Auto) 0 Urine RBC (Auto) 0-4 U Hyaline Cast (Auto) 1-5 U Epithel Cells (Auto) 10-20 H Urine Bacteria (Auto) Negative Salicylates Urine Opiates Screen Pos H U Codeine Confrm GC/MS NEGATIVE Ur Morphine (GC/MS) NEGATIVE Ur Hydrocodone (GC/MS) 418 H Ur Norhydrocodone 127 H Ur Noroxycodone NEGATIVE Urine Oxycodone (GC/MS) NEGATIVE U Oxymorphone GC/MS NEGATIVE Ur Methadone, Qual Neg Ur Hydromorphone (GC/MS) 181 H Acetaminophen Urine Barbiturates Neg Ur Phencyclidine (PCP) Neg U Amphetamin/Meth Scrn Neg MDMA (Ecstasy) Screen Neg U Benzodiazepines Scrn Neg Ur Cocaine Metabolite Neg U Marijuana (THC) Screen Neg Drug Screen Comment SEE NOTE Ethyl Alcohol mg/dL SARS-CoV-2, RNA, NAAT 08/07/21 08/07/21 08/07/21 16:45 16:45 16:45 WBC 9.24 RBC 5.29 Hgb 15.7 Hct 47.7 MCV 90.2 MCH 29.7 MCHC 32.9 RDW Std Deviation 53.2 H RDW Coeff of Мария 16.0 H Plt Count 222 MPV 9.8 Immature Gran % (Auto) 0.4 Neut % (Auto) 79.5 Lymph % (Auto) 7.1 Hutchinson % (Auto) 12.4 Eos % (Auto) 0.3 Baso % (Auto) 0.3 Neut # (Auto) 7.33 H Lymph # (Auto) 0.66 L Hutchinson # (Auto) 1.15 H Eos # (Auto) 0.03 Baso # (Auto) 0.03 Immature Gran # (Auto) 0.04 H PT 18.8 H INR 1.8 H APTT 35.7 H PTT Ratio 1.3 Sodium 135 L Potassium 4.0 Chloride 100 Carbon Dioxide 27 Anion Gap 8 BUN 38 H Creatinine 1.53 H Est Cr Clr Drug Dosing Not Reportable Est GFR ( Amer) 57.7 Est GFR (Non-Af Amer) 49.7 BUN/Creatinine Ratio 24.8 H Glucose 158 H POC Glucose Calcium 9.3 Total Bilirubin 1.1 H AST 15 ALT 13 Alkaline Phosphatase 114 H Troponin I High Sens 15.0 Total Protein 8.5 H Albumin 3.9 Globulin 4.6 H Albumin/Globulin Ratio 0.8 L TSH Urine Color Urine Appearance Urine pH Ur Specific [place] Urine Protein Urine Glucose (UA) Urine Ketones Urine Blood Urine Nitrite Urine Bilirubin Urine Urobilinogen Ur Leukocyte Esterase Urine WBC (Auto) Urine RBC (Auto) U Hyaline Cast (Auto) U Epithel Cells (Auto) Urine Bacteria (Auto) Salicylates Urine Opiates Screen U Codeine Confrm GC/MS Ur Morphine (GC/MS) Ur Hydrocodone (GC/MS) Ur Norhydrocodone Ur Noroxycodone Urine Oxycodone (GC/MS) U Oxymorphone GC/MS Ur Methadone, Qual Ur Hydromorphone (GC/MS) Acetaminophen Urine Barbiturates Ur Phencyclidine (PCP) U Amphetamin/Meth Scrn MDMA (Ecstasy) Screen U Benzodiazepines Scrn Ur Cocaine Metabolite U Marijuana (THC) Screen Drug Screen Comment Ethyl Alcohol mg/dL SARS-CoV-2, RNA, NAAT 08/07/21 08/07/21 08/07/21 16:45 16:45 16:45 WBC RBC Hgb Hct MCV MCH MCHC RDW Std Deviation RDW Coeff of Мария Plt Count MPV Immature Gran % (Auto) Neut % (Auto) Lymph % (Auto) [place] % (Auto) Eos % (Auto) Baso % (Auto) Neut # (Auto) Lymph # (Auto) [place] # (Auto) Eos # (Auto) Baso # (Auto) Immature Gran # (Auto) PT INR APTT PTT Ratio Sodium Potassium Chloride Carbon Dioxide Anion Gap BUN Creatinine Est Cr Clr Drug Dosing Est GFR ( Amer) Est GFR (Non-Af Amer) BUN/Creatinine Ratio Glucose POC Glucose Calcium Total Bilirubin AST ALT Alkaline Phosphatase Troponin I High Sens Total Protein Albumin Globulin Albumin/Globulin Ratio TSH 1.914 Urine Color Urine Appearance Urine pH Ur Specific [place] Urine Protein Urine Glucose (UA) Urine Ketones Urine Blood Urine Nitrite Urine Bilirubin Urine Urobilinogen Ur Leukocyte Esterase Urine WBC (Auto) Urine RBC (Auto) U Hyaline Cast (Auto) U Epithel Cells (Auto) Urine Bacteria (Auto) Salicylates < 3.0 L Urine Opiates Screen U Codeine Confrm GC/MS Ur Morphine (GC/MS) Ur Hydrocodone (GC/MS) Ur Norhydrocodone Ur Noroxycodone Urine Oxycodone (GC/MS) U Oxymorphone GC/MS Ur Methadone, Qual Ur Hydromorphone (GC/MS) Acetaminophen < 3 L Urine Barbiturates Ur Phencyclidine (PCP) U Amphetamin/Meth Scrn MDMA (Ecstasy) Screen U Benzodiazepines Scrn Ur Cocaine Metabolite U Marijuana (THC) Screen Drug Screen Comment Ethyl Alcohol mg/dL < 10.0 SARS-CoV-2, RNA, NAAT 08/07/21 08/08/21 08/08/21 16:45 01:23 07:44 WBC RBC Hgb Hct MCV MCH MCHC RDW Std Deviation RDW Coeff of Мария Plt Count MPV Immature Gran % (Auto) Neut % (Auto) Lymph % (Auto) [place] % (Auto) Eos % (Auto) Baso % (Auto) Neut # (Auto) Lymph # (Auto) Hutchinson # (Auto) Eos # (Auto) Baso # (Auto) Immature Gran # (Auto) PT INR APTT PTT Ratio Sodium Potassium Chloride Carbon Dioxide Anion Gap BUN Creatinine Est Cr Clr Drug Dosing Est GFR ( Amer) Est GFR (Non-Af Amer) BUN/Creatinine Ratio Glucose POC Glucose 136 H 169 H Calcium Total Bilirubin AST ALT Alkaline Phosphatase Troponin I High Sens Total Protein Albumin Globulin Albumin/Globulin Ratio TSH Urine Color Urine Appearance Urine pH Ur Specific [place] Urine Protein Urine Glucose (UA) Urine Ketones Urine Blood Urine Nitrite Urine Bilirubin Urine Urobilinogen Ur Leukocyte Esterase Urine WBC (Auto) Urine RBC (Auto) U Hyaline Cast (Auto) U Epithel Cells (Auto) Urine Bacteria (Auto) Salicylates Urine Opiates Screen U Codeine Confrm GC/MS Ur Morphine (GC/MS) Ur Hydrocodone (GC/MS) Ur Norhydrocodone Ur Noroxycodone Urine Oxycodone (GC/MS) U Oxymorphone GC/MS Ur Methadone, Qual Ur Hydromorphone (GC/MS) Acetaminophen Urine Barbiturates Ur Phencyclidine (PCP) U Amphetamin/Meth Scrn MDMA (Ecstasy) Screen U Benzodiazepines Scrn Ur Cocaine Metabolite U Marijuana (THC) Screen Drug Screen Comment Ethyl Alcohol mg/dL SARS-CoV-2, RNA, NAAT NEGATIVE 08/08/21 08/08/21 08/08/21 12:26 17:22 21:16 WBC RBC Hgb Hct MCV MCH MCHC RDW Std Deviation RDW Coeff of Мария Plt Count MPV Immature Gran % (Auto) Neut % (Auto) Lymph % (Auto) [place] % (Auto) Eos % (Auto) Baso % (Auto) Neut # (Auto) Lymph # (Auto) [place] # (Auto) Eos # (Auto) Baso # (Auto) Immature Gran # (Auto) PT INR APTT PTT Ratio Sodium Potassium Chloride Carbon Dioxide Anion Gap BUN Creatinine Est Cr Clr Drug Dosing Est GFR ( Amer) Est GFR (Non-Af Amer) BUN/Creatinine Ratio Glucose POC Glucose 255 H 301 H* 192 H Calcium Total Bilirubin AST ALT Alkaline Phosphatase Troponin I High Sens Total Protein Albumin Globulin Albumin/Globulin Ratio TSH Urine Color Urine Appearance Urine pH Ur Specific [place] Urine Protein Urine Glucose (UA) Urine Ketones Urine Blood Urine Nitrite Urine Bilirubin Urine Urobilinogen Ur Leukocyte Esterase Urine WBC (Auto) Urine RBC (Auto) U Hyaline Cast (Auto) U Epithel Cells (Auto) Urine Bacteria (Auto) Salicylates Urine Opiates Screen U Codeine Confrm GC/MS Ur Morphine (GC/MS) Ur Hydrocodone (GC/MS) Ur Norhydrocodone Ur Noroxycodone Urine Oxycodone (GC/MS) U Oxymorphone GC/MS Ur Methadone, Qual Ur Hydromorphone (GC/MS) Acetaminophen Urine Barbiturates Ur Phencyclidine (PCP) U Amphetamin/Meth Scrn MDMA (Ecstasy) Screen U Benzodiazepines Scrn Ur Cocaine Metabolite U Marijuana (THC) Screen Drug Screen Comment Ethyl Alcohol mg/dL SARS-CoV-2, RNA, NAAT 08/09/21 08/09/2108/09/22 08:09 08:16 12:31 WBC RBC Hgb Hct MCV MCH MCHC RDW Std Deviation RDW Coeff of Мария Plt Count MPV Immature Gran % (Auto) Neut % (Auto) Lymph % (Auto) [place] % (Auto) Eos % (Auto) Baso % (Auto) Neut # (Auto) Lymph # (Auto) [place] # (Auto) Eos # (Auto) Baso # (Auto) Immature Gran # (Auto) PT 20.9 H INR 2.0 H APTT PTT Ratio Sodium Potassium Chloride Carbon Dioxide Anion Gap BUN Creatinine Est Cr Clr Drug Dosing Est GFR ( Amer) Est GFR (Non-Af Amer) BUN/Creatinine Ratio Glucose POC Glucose 154 H 206 H Calcium Total Bilirubin AST ALT Alkaline Phosphatase Troponin I High Sens Total Protein Albumin Globulin Albumin/Globulin Ratio TSH Urine Color Urine Appearance Urine pH Ur Specific [place] Urine Protein Urine Glucose (UA) Urine Ketones Urine Blood Urine Nitrite Urine Bilirubin Urine Urobilinogen Ur Leukocyte Esterase Urine WBC (Auto) Urine RBC (Auto) U Hyaline Cast (Auto) U Epithel Cells (Auto) Urine Bacteria (Auto) Salicylates Urine Opiates Screen U Codeine Confrm GC/MS Ur Morphine (GC/MS) Ur Hydrocodone (GC/MS) Ur Norhydrocodone Ur Noroxycodone Urine Oxycodone (GC/MS) U Oxymorphone GC/MS Ur Methadone, Qual Ur Hydromorphone (GC/MS) Acetaminophen Urine Barbiturates Ur Phencyclidine (PCP) U Amphetamin/Meth Scrn MDMA (Ecstasy) Screen U Benzodiazepines Scrn Ur Cocaine Metabolite U Marijuana (THC) Screen Drug Screen Comment Ethyl Alcohol mg/dL SARS-CoV-2, RNA, NAAT 08/09/21 08/09/21 08/10/21 17:14 20:48 07:05 WBC RBC Hgb Hct MCV MCH MCHC RDW Std Deviation RDW Coeff of Мария Plt Count MPV Immature Gran % (Auto) Neut % (Auto) Lymph % (Auto) [place] % (Auto) Eos % (Auto) Baso % (Auto) Neut # (Auto) Lymph # (Auto) [place] # (Auto) Eos # (Auto) Baso # (Auto) Immature Gran # (Auto) PT 22.8 H INR 2.2 H APTT PTT Ratio Sodium Potassium Chloride Carbon Dioxide Anion Gap BUN Creatinine Est Cr Clr Drug Dosing Est GFR ( Amer) Est GFR (Non-Af Amer) BUN/Creatinine Ratio Glucose POC Glucose 148 H 186 H Calcium Total Bilirubin AST ALT Alkaline Phosphatase Troponin I High Sens Total Protein Albumin Globulin Albumin/Globulin Ratio TSH Urine Color Urine Appearance Urine pH Ur Specific [place] Urine Protein Urine Glucose (UA) Urine Ketones Urine Blood Urine Nitrite Urine Bilirubin Urine Urobilinogen Ur Leukocyte Esterase Urine WBC (Auto) Urine RBC (Auto) U Hyaline Cast (Auto) U Epithel Cells (Auto) Urine Bacteria (Auto) Salicylates Urine Opiates Screen U Codeine Confrm GC/MS Ur Morphine (GC/MS) Ur Hydrocodone (GC/MS) Ur Norhydrocodone Ur Noroxycodone Urine Oxycodone (GC/MS) U Oxymorphone GC/MS Ur Methadone, Qual Ur Hydromorphone (GC/MS) Acetaminophen Urine Barbiturates Ur Phencyclidine (PCP) U Amphetamin/Meth Scrn MDMA (Ecstasy) Screen U Benzodiazepines Scrn Ur Cocaine Metabolite U Marijuana (THC) Screen Drug Screen Comment Ethyl Alcohol mg/dL SARS-CoV-2, RNA, NAAT 08/10/21 08:41 WBC RBC Hgb Hct MCV MCH MCHC RDW Std Deviation RDW Coeff of Мария Plt Count MPV Immature Gran % (Auto) Neut % (Auto) Lymph % (Auto) [place] % (Auto) Eos % (Auto) Baso % (Auto) Neut # (Auto) Lymph # (Auto) [place] # (Auto) Eos # (Auto) Baso # (Auto) Immature Gran # (Auto) PT INR APTT PTT Ratio Sodium Potassium Chloride Carbon Dioxide Anion Gap BUN Creatinine Est Cr Clr Drug Dosing Est GFR ( Amer) Est GFR (Non-Af Amer) BUN/Creatinine Ratio Glucose POC Glucose 134 H Calcium Total Bilirubin AST ALT Alkaline Phosphatase Troponin I High Sens Total Protein Albumin Globulin Albumin/Globulin Ratio TSH Urine Color Urine Appearance Urine pH Ur Specific [place] Urine Protein Urine Glucose (UA) Urine Ketones Urine Blood Urine Nitrite Urine Bilirubin Urine Urobilinogen Ur Leukocyte Esterase Urine WBC (Auto) Urine RBC (Auto) U Hyaline Cast (Auto) U Epithel Cells (Auto) Urine Bacteria (Auto) Salicylates Urine Opiates Screen U Codeine Confrm GC/MS Ur Morphine (GC/MS) Ur Hydrocodone (GC/MS) Ur Norhydrocodone Ur Noroxycodone Urine Oxycodone (GC/MS) U Oxymorphone GC/MS Ur Methadone, Qual Ur Hydromorphone (GC/MS) Acetaminophen Urine Barbiturates Ur Phencyclidine (PCP) U Amphetamin/Meth Scrn MDMA (Ecstasy) Screen U Benzodiazepines Scrn Ur Cocaine Metabolite U Marijuana (THC) Screen Drug Screen Comment Ethyl Alcohol mg/dL SARS-CoV-2, RNA, NAAT Hospital Course (1) MDD (major depressive disorder), recurrent episode, mild: (2) Adjustment disorder with mixed disturbance of emotions and conduct: (3) Depression with suicidal ideation: (4) History of amputation of left foot: (5) Chronic kidney disease: (6) Diabetes type 2, uncontrolled: (7) Hypothyroidism: (8) NINA on CPAP: (9) Asthma: 08/10/21: Continues to decline any adjustments in sertraline dose. Mood remains stable. He desires discharge. 08/09/21: Continue with medications and tx plan. 08/08/21: The patient was admitted to the [facility] ([facility] mental health unit) on q15 min checks (behavioral with suicide precautions) for safety. The patient will participate in group, recreational, and milieu therapies and will be offered additional individual and family sessions as clinically appropriate. He is unsure if he wants to increase Zoloft at this time. His main request is regarding services and is agreeable to sign ROIs for [facility] care management. In meantime, PT assessment. He reports med compliance, but then adds "when I can get them" and is currently subtherapeutic on coumadin as target INR generally 2.1. Coumadin protocol. Glycemic management consult for diabetes. He complains of ear pain, no significant fluid was noted but some clouding and no insufflator bulb. He had pain with movement of pinna, given chronic sinusitis and inability to use bipap, reports plan to resume antibiotics. Rx presumed sinusitis with Amoxicillin for 10 days. Mental Health & Subst Abuse Tx Therapist Name of Therapist: [facility] - Kirstie Lynch Therapist's Date of Therapist Appointment: 08/16/21 Therapy Appointment Comment: Telehealth Shadow Graph Weight Operator Name of Shadow Graph Weight Operator: Adult Protective Services - Leatha Post Discharge Appointments Primary Care Physician Name Of Family Doctor: [facility] Date of Appointment with PCP: 08/16/21 Time of Appointment with PCP: 10:55 a.m. (arrival time) Provider Appointment Comment: [address] [place] [id number] Other #1: Name of Aftercare Appointment: [facility] - Jaimee Denson RN Phone Number of Aftercare Appointment: [phone] Date of Aftercare Appointment: 08/14/21 Time of Aftercare Appointment: 10:30 a.m. Aftercare Appointment Comment: Also on 08/30 at 2:30 p.m. (will discuss any additional needs) Contact Information Discharge Discharge [address]: [address] [place] [id number] Discharge Plan Discharge Items Patient Disposition: [facility] Reason For Visit: DEPRESSIVE DISORDER Discharge Diagnosis: Major Depressive Disorder Activity: Resume your previous activity Non-emergency contact: Primary Care Provider and Marine Engineering Professor Call non-emergency contact if: you have any medication questions and your symptoms worsen Follow-up/Referrals: Sherry Maya, [Primary Care Provider] - Diet: Regular Addtl Attending Provider Instructions: SPECIAL CARE INSTRUCTIONS: 1. Follow through with your scheduled aftercare appointments. If unable to keep an appointment, please call to reschedule. 2. Take your medication only as prescribed. Medication should not be changed or stopped without the approval of your doctor. In the event of worsening symptoms or concerns about side effects, contact your doctor immediately. 3. Utilize new healthy coping skills, anger management skills, and stress management skills learned during your hospitalization. Journal feelings and process them with a support person. Identify stressors or situations that may result in relapse, deterioration or inappropriate behaviors and develop a plan to deal with those issues. 4. If your coping skills are ineffective and you are in crisis, contact your outpatient providers for direction. If unable to reach your providers, please call the [facility] CRISIS LINE AT , go to the [facility] walk-in center at [address], [address], [place], or go to the closest Emergency Room. 5. Avoid alcohol and un-prescribed drugs. 6. You have been provided with the Mental Health Advance Directives Pamphlet for your review. 7. Your condition is stable for discharge to outpatient level of care, but recovery is an ongoing process. Ifthoughts to harm yourself or others return, follow the safety plan developed during your stay. Planning for a safe return home includes securing weapons. Our treatment team recommends weaponsbe removed from the home until your outpatient provider reassesses your progress. In rare cases where the items themselvescannot be removed, guns and ammunitionshould be secured separatelyand keys stored by a reliable personoutside of the home. If you were admitted on an involuntary commitment, the police or other legal authorities may be involved in this process. AFTERCARE APPOINTMENTS: * Please call your insurance company prior to your scheduled appointment to confirm your aftercare providers are covered. Take your insurance information to your appointments. WHO TO CALL AND WHEN: Medical Emergencies: For questions or emergencies related to your hospital stay, please contact the [facility] at [phone]. A advertising writer is on-call 17/11 for the Behavior[facility] for emergencies At any time you feel your situation is an emergency, you may also call 911 immediately. Pending Studies at Discharge: No Stand-Alone Forms: My [facility] Skilled Items Lines: None Urinary Catheter: No Medications and DC Order Prescriptions: New amoxicillin 500 mg Capsule 500 mg PO TID 9 Days Qty: 27 RF: 0 Continued fluticasone propionate [Flonase Allergy Relief] 50 mcg/actuation spray,suspension 2 sprays INTNAS BID RF: 0 mometasone-formoterol [Dulera] 200-5 mcg/actuation HFA aerosol inhaler 2 puffs INH BID RF: 0 omeprazole 20 mg capsule,delayed release(DR/EC) 20 mg PO QAM RF: 0 gabapentin 300 mg Capsule 300 mg PO TID RF: 0 ergocalciferol (vitamin D2) 2,500 unit Capsule 50,000 unit PO WK RF: 0 albuterol sulfate [Ventolin HFA] 90 mcg/actuation Hfa Aerosol Inhaler 2 puff INHALATION QID PRN (Reason: SHORT OF BREATH) RF: 0 clobetasol 0.05 % cream 1 applic TOPICAL BID PRN (Reason: dry skin) RF: 0 aspirin 81 mg Tablet,Delayed Release (Dr/Ec) 81 mg PO QAM RF: 0 sertraline 25 mg tablet 25 mg PO DAILY RF: 0 magnesium oxide 400 mg magnesium Tablet 400 mg PO DAILY RF: 0 warfarin 4 mg Tablet See Rx Instructions .ROUTE .COMPLEX RF: 0 warfarin 1 mg tablet 3 mg PO SUTH RF: 0 potassium chloride 20 mEq tablet extended release 20 meq PO DAILY Qty: 30 RF: 0 metoprolol succinate 50 mg tablet extended release 24 hr 50 mg PO BID RF: 0 hydrocodone-acetaminophen 5-325 mg Tablet 1 tab PO Q6H PRN (Reason: Pain) RF: 0 metoprolol succinate 25 mg tablet extended release 24 hr 25 mg PO BID RF: 0 spironolactone 25 mg Tablet 25 mg PO DAILY RF: 0 levothyroxine 88 mcg tablet 88 mcg PO DAILY RF: 0 atorvastatin 80 mg tablet 80 mg PO HS Qty: 0 RF: 0 Discharge Orders: Discharge Order (Routine); Ordered 08/10/21 Ordered By: Ninoska Kang/Other Patient Handouts: Depression: Tips to Help Yourself Admission Data Admit Date/Time: 08/08/21 01:16 Attending Provider: Ninoska Ochoa Admit Provider: Geno Blancas Primary Care Provider: Sherry Maya Other Interventions: Discharge Summary Assessment (RN) Last Done: 08/10/21 11:27 PSY Interdisciplinary Discharge Planning Last Done: 08/10/21 11:53 Coding Level of Care Code 82386 D/C day mgmt > 30 min Diagnoses Depression with suicidal ideation F32.A; R45.851 History of amputation of left foot Z89.432 Chronic kidney disease N18.9 Chronic kidney disease stage: unspecified stage Diabetes type 2, uncontrolled E11.65 Hypothyroidism E03.9 NINA on CPAP G47.33; Z99.89 Asthma J45.909 Adjustment disorder with mixed disturbance of emotions and conduct F43.25 MDD (major depressive disorder), recurrent episode, mild F33.0 Time Spent (min) 40
== END 2021-08-10 12:35 | DRG 885 ==
LOC: ED 15:59 → 3S 08-08 01:16 → SUATTDRO 08-08 01:16 → 3S 08-08 02:31

== ENCOUNTER 2022-12-02 11:48 | Inpatient (IN) ==
[2022-12-02] MEDS ORDERED: PIPERACILLIN/TAZOBACTAM 4.5 GM/120 ML BAG IV ONE (12:41)
[2022-12-02 13:10] LABS: Basophils # (auto) 0.06 K/uL (0-0.2); Basophils % (auto) 0.8 %; Eosinophils # (auto) 0.13 K/uL (0-0.50); Eosinophils % (auto) 1.7 %; Hematocrit (blood only) 46.8 % (42.0-52.0); Hemoglobin 15.2 g/dl (14.0-18.0); Immature Granulocytes # (auto) 0.04 K/uL (0.01-0.20); Immature Granulocytes % (auto) 0.5 %; Lymphocytes # (auto) 0.94 K/uL (1.2-3.4); Lymphocytes % (auto) 12.3 %; Mean Corpuscular Hemoglobin 27.7 pg (25.0-34.0); Mean Corpuscular Hgb Conc 32.5 g/dL (32.0-36.0); Mean Corpuscular Volume 85.2 fL (80.0-100.0); Mean Platelet Volume 10.3 fL (9.4-12.4); Monocytes # (auto) 0.91 K/uL (0.11-0.59); Monocytes % (auto) 11.9 %; Neutrophils # (auto) 5.56 K/uL (1.40-6.50); Neutrophils % (auto) 72.8 %; Platelet Count 200 K/uL (130-400); RDW Coefficient of Variation 17.6 % (11.5-14.5); RDW Standard Deviation 52.8 fL (36.4-46.3); Red Blood Count 5.49 M/uL (4.70-6.10); White Blood Count 7.64 K/ul (4.8-10.8)
--- NOTE | 2022-12-02 13:11 | XRay Report ---
SINGLE VIEW CHEST CLINICAL HISTORY: Lower extremity edema FINDINGS: 2 AP, portable, upright chest radiographs are compared to study dated 08/07/2021 and correla charles with chest CT dated 08/15/2020. A single lead cardiac AICD is unchanged in position and partially obscures the left upper chest. The heart is enlarged. There is mild pulmonary vascular congestion. At electasis is seen at the lung bases. The lungs and pleural spaces are otherwise clear. No pneumothora x is seen. The skeletal structures are osteopenic. The bony thorax is grossly intact. IMPRESSION: Cardiomegaly and AICD with mild pulmonary vascular congestion. ACT 112: Negative or not required by law. Electronically signed by: Lukas Trivedi M.D. 12/02/2022 1:09 PM
[2022-12-02 13:25] LABS: Albumin Globulin Ratio 0.7 (0.9-2); Albumin Level 3.3 gm/dl (3.4-5.0); BUN Creatinine Ratio 23.6 (10-20); Bilirubin,Total 0.7 mg/dl (0.2-1.0); C Reactive Protein 17.74 mg/dl (0-0.5); Calcium 8.8 mg/dl (8.6-10.3); Creatinine Clr Calc Pharmacy 70.9 ml/min; Est GFR (African American) 42.4 ml/min; Est GFR (Non-African American) 36.6 ml/min; Globulin 4.5 gm/dl (2.5-4.0); Potassium 4.2 mmol/L (3.5-5.1); Total Protein 7.8 gm/dl (6.0-8.3)
[2022-12-02 13:30] LABS: Troponin I High Sensitivity 10.9 pg/ml (0-20)
[2022-12-02 13:41] LABS: INR 2.8 (0.9-1.1); Partial Thromboplastin Ratio 1.4
--- NOTE | 2022-12-02 14:02 | Emergency Department Note ---
Impression & Plan Cellulitis of right leg, PVD (peripheral vascular disease), 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 ED Provider Note Provider: Bruno Zarco MD DATE OF SERVICE: 12/02/2022 CHIEF COMPLAINT: Right leg swelling and infection HISTORY OF PRESENT ILLNESS: Patient is a 57-year-old gentleman history of CAD, ischemic or myopathy, type 2 diabetes with neuropathy, CKD, A-fib, and ongoing wounds presenting here today report of 2 wounds to his right lower leg that been worsening. Talked with his doctors office but the wound clinic is currently closed and not able to see him. Started a dose of doxycycline yesterday but no other recent antibiotics. Has history of significant infections here. Denies fever. Denies new trauma or falls. Denies issues with his left BKA. PAST MEDICAL HISTORY: As noted above MEDICATIONS: Reviewed home medications SOCIAL HISTORY: No smoking history reported PHYSICAL EXAM: GENERAL: alert and oriented in no acute distress on stretcher Head: normocephalic and atraumatic EYES: No injection, discharge or icterus. NECK: Trachea midline. ENT: Mucous membranes pink and moist. LUNGS: Airway patent. No retractions. Breath sounds clear with good air entry bilaterally. HEART: Regular rate and rhythm. No chest wall tenderness ABDOMEN: Soft and non-tender, without guarding or rebound. SKIN: Acyanotic, warm, dry, without rashes EXTREMITIES: Left BKA noted the right lower leg from the knee down is red and erythematous with some purple discoloration to the toes. No clear DP pulse appreciated. No crepitus. Weeping serous fluid and bandaging soaked with some yellowish to slightly bluish-green discoloration noted here with some wounds to the right anterior mcknight to the right posterior leg. NEUROLOGICAL: No focal deficits. No aphasia. No facial droop or slurred speech. Ambulatory with cane EK bpm atrial fibrillation. No PVC or PAC. No acute ST segment elevation or depression with a QTc of 421. Nonspecific T wave changes noted. CONTINUOUS CARDIAC MONITORING: was ordered and showed a heart rate of 70s bpm in atrial fibrillation Patient's laboratory studies and imaging reviewed. Differential includes Cellulitis, abscess, MRSA infection, DVT, necrotizing fasciitis, dermatitis, drug eruption, allergic reaction, as well as other pathologies. IMPRESSION/MEDICAL DECISION MAKING: Patient with swelling and redness with 2 small open wounds to the right lower leg. Purplish in color. Underlying diabetic neuropathy. Some slightly diminished capillary refill. Unclear if this is from swelling. Will obtain arterial ultrasound here to check for blood flow. Denies fever or systemic symptoms. No leukocytosis. Procalcitonin and CRP are significantly elevated as is ESR. INR therapeutic with an underlying history of A-fib and Coumadin usage. Given some oral intake as his blood sugar began to drop in regards to his diabetes. Wound culture from the surface obtained of the wound. Chest x-ray obtained with some mild pulmonary vascular congestion. A little bit of heart failure may be contributing to some of the swelling. CKD with creatinine 1.95 noted. We will give a small amount of Lasix to see if some diuresis helps a bit with the swelling and infected wounds. Covered broadly with vancomycin and Z osyn for antimicrobial coverage and again with the slightly bluish-greenish wound/bandaging I do question if there may be a pseudomonal component. Vascular ultrasound of the RLE with some diminished flow but still present. I doubt this represents an ischemic cold foot at this time but some peripheral artery disease and again have concerns with his ability to heal well here. Strongly recommended given his risk factors and the severity of the redness and possible infection further care here at the hospital. And he was in agreement with this. Discussed with Dr. Flores of the hospitalist team for further care here. DIAGNOSIS: Diabetic right foot and lower leg infection, peripheral vascular disease DISPOSITION: Hospitalist will evaluate Patient was agreeable with this plan. Past Med/Surg History Medical History (Updated 12/02/22 @ 17:22 by Bruno Zarco M.D.) Acute hypoxemic respiratory failure Acute on chronic combined systolic (congestive) and diastolic (congestive) heart failure Acute on chronic renal failure Acute osteomyelitis of left foot Arthritis Asthma well controlled, daily shelter 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 Bacteremia due to group B Streptococcus CAD (coronary artery disease) Cardiac defibrillator in situ 2007 with replacement 03/2020. follows with Dr. Maya. Cellulitis of left lower leg CHF (congestive heart failure) CKD (chronic kidney disease) stage 3, GFR 30-59 ml/min Deformity of foot Depression Depression with suicidal ideation Diabetes type 2, uncontrolled Diabetic peripheral neuropathy associated with type 2 diabetes mellitus Diabetic ulcer of left foot associated with type 2 diabetes mellitus, with fat layer exposed Diabetic ulcer of left heel associated with diabetes mellitus due to underlying condition, limited to breakdown of skin Diabetic ulcer of right foot Dyslipidemia GERD (gastroesophageal reflux disease) H/O osteomyelitis History of diabetic ulcer of foot Hx of myocardial infarction found on testing Hx of osteomyelitis Hx of sepsis 06/2019 Hypertension Hypokalemia Hypothyroidism Ischemic cardiomyopathy Adams fracture Base of left fifth metatarsal, nonhealing x years Lymphedema Morbid obesity Peripheral arterial disease Pneumonia due to COVID-19 virus Rectal bleeding SARS-CoV-2 positive Sepsis Sleep apnea BIPAP Sustained VT (ventricular tachycardia) T2DM (type 2 diabetes mellitus) Venous stasis ulcer of right lower leg with edema of right lower leg Vitamin D deficiency Surgical History H/O cardiac radiofrequency ablation OCTOBER 2019 ([facility]) AT [facility] H/O foot surgery LEFT FOOT ULCER DEBRIDEMENT H/O shoulder surgery left History of cardiac cath V. tach -- no stent. 06/2019. unsure where it was done History of colonoscopy History of esophagogastroduodenoscopy (EGD) History of sinus surgery Hx of amputation of lesser toe Hx of tonsillectomy Family History Sister Family history of diabetes mellitus 2 Grandmother (Maternal) Family history of diabetes mellitus Grandfather (Maternal) Family history of diabetes mellitus Father Cancer Mother Cancer Other No family history of adverse response to anesthesia Social History Smoking Status: Never smoker Second Hand Exposure: No; Do You Dip or Chew Tobacco: No; Hx Alcohol Use: No Hx Substance Use: No Preferred Language: Ghanaian Communication Ability: Effective Wine Blender Required: No Beliefs That Will Affect Care: None marital status: Current Living Situation: Alone current occupational status: disabled How many Children do You have: 3 Feels Safe at Home: Yes Assistive Devices: Wheelchair Allergies Allergies Allergy/AdvReac Type Severity Reaction Status Date / Time benzonatate AdvReac Intermediate choking, Verified 06/06/22 14:59 gagging Home Meds Home Medications Medication Instructions Recorded Confirmed fluticasone propionate 50 2 sprays intranasal BID 12/21/17 12/02/22 mcg/actuation nasal spray,suspension (Flonase Allergy Relief) mometasone-formoterol HFA 200 2 puffs inhalation BID 12/21/17 12/02/22 mcg-5 mcg/actuation aerosol inhaler (Dulera) omeprazole 20 mg capsule,delayed 20 mg PO QAM 12/21/17 12/02/22 release ergocalciferol (vitamin D2) 62.5 50,000 unit PO WK 04/12/19 12/02/22 mcg (2,500 unit) capsule gabapentin 300 mg capsule 300 mg PO TID 04/12/19 12/02/22 clobetasol 0.05 % topical cream 1 applic topical BID PRN dry skin 01/18/20 12/02/22 albuterol sulfate 90 mcg/actuation 2 puff inhalation QID PRN SHORT OF 05/30/20 12/02/22 aerosol inhaler (Ventolin HFA) BREATH aspirin 81 mg tablet,delayed 81 mg PO QAM 06/12/20 12/02/22 release warfarin 1 mg tablet 1 mg PO USEASDIRECTD 07/12/20 12/02/22 levothyroxine 88 mcg tablet 88 mcg PO DAILY 12/13/20 12/02/22 metoprolol succinate 25 mg 25 mg PO BID 12/13/20 12/02/22 tablet,extended release 24 hr metoprolol succinate 50 mg 50 mg PO BID 12/13/20 12/02/22 tablet,extended release 24 hr spironolactone 25 mg tablet 25 mg PO DAILY 12/13/20 12/02/22 magnesium oxide 400 mg PO DAILY 08/08/21 12/02/22 warfarin 4 mg tablet See Rx Instructions .Route .COMPLEX 08/08/21 12/02/22 sacubitril 24 mg-valsartan 26 mg 1 tab PO BID 09/27/21 12/02/22 tablet (Entresto) tramadol 50 mg tablet 50 mg PO BID PRN Pain 06/06/22 12/02/22 hydrocodone 10 mg-acetaminophen See Rx Instructions .Route 12/02/22 12/02/22 325 mg tablet .COMPLEX PRN Pain torsemide 20 mg tablet See Rx Instructions .Route .COMPLEX 12/02/22 12/02/22 Previous Rx's Medication Instructions Recorded potassium chloride 20 mEq 20 meq PO DAILY #30 tabs 08/23/20 tablet,extended release atorvastatin 80 mg tablet 80 mg PO HS #0 tabs 12/21/20 empagliflozin 25 mg tablet 25 mg PO DAILY #90 tabs 09/27/21 insulin aspart U-100 100 unit/mL 240 unit (2.4 mL) continuous 04/19/22 subcutaneous solution (Novolog subcutaneous infusion DAILY #216 mL U-100 Insulin aspart) dulaglutide 1.5 mg/0.5 mL 1.5 mg (0.5 mL) subcut Q7D 30 days 12/02/22 subcutaneous pen injector #2.5 mL (Trulicity) Results & Data (ED) Vital Signs Vital Signs - 24 hr 12/02/22 11:53 12/02/22 12:56 12/02/22 11:49 Temperature 36.7 C 36.7 C Temperature Source Temporal Artery Scan Temporal Artery Scan Pulse Rate 74 74 Respiratory Rate 21 21 Respiratory Effort / Characteristics Non-Labored Spontaneous Non-Labored Spontaneous Respiratory Depth Normal Normal Respiratory Pattern Regular Regular Blood Pressure 104/69 Blood Pressure Mean 80 Blood Pressure Position Sitting Pulse Oximetry 95 95 Oxygen Delivery Method Room Air Room Air Sepsis Recent Fever Within 48 Hours No Sepsis New/Unexplained Change in Mental Status No Sepsis Action Taken by Nursing No Action Required 12/02/22 12:46 12/02/22 13:00 12/02/22 13:30 Temperature Temperature Source Pulse Rate 70 65 82 Respiratory Rate 14 17 13 Respiratory Effort / Characteristics Respiratory Depth Respiratory Pattern Blood Pressure Blood Pressure Mean Blood Pressure Position Pulse Oximetry Oxygen Delivery Method Sepsis Recent Fever Within 48 Hours Sepsis New/Unexplained Change in Mental Status Sepsis Action Taken by Nursing 12/02/22 14:00 12/02/22 14:30 12/02/22 15:26 Temperature Temperature Source Pulse Rate 62 Respiratory Rate 18 14 15 Respiratory Effort / Characteristics Respiratory Depth Respiratory Pattern Blood Pressure Blood Pressure Mean Blood Pressure Position Pulse Oximetry Oxygen Delivery Method Sepsis Recent Fever Within 48 Hours Sepsis New/Unexplained Change in Mental Status Sepsis Action Taken by Nursing 12/02/22 15:27 12/02/22 15:28 12/02/22 15:28 Temperature Temperature Source Pulse Rate 70 70 Respiratory Rate 14 20 Respiratory Effort / Characteristics Respiratory Depth Respiratory Pattern Blood Pressure 95/67 L Blood Pressure Mean 75 Blood Pressure Position Pulse Oximetry Oxygen Delivery Method Sepsis Recent Fever Within 48 Hours Sepsis New/Unexplained Change in Mental Status Sepsis Action Taken by Nursing 12/02/22 16:49 Temperature Temperature Source Pulse Rate 78 Respiratory Rate Respiratory Effort / Characteristics Respiratory Depth Respiratory Pattern Blood Pressure Blood Pressure Mean Blood Pressure Position Pulse Oximetry Oxygen Delivery Method Sepsis Recent Fever Within 48 Hours Sepsis New/Unexplained Change in Mental Status Sepsis Action Taken by Nursing Laboratory Data 12/02/22 12:45 12/02/22 12:45 Lab Results 12/02/22 12/02/22 12/02/22 Range/Units 12:45 12:45 12:45 WBC 7.64 (4.8-10.8) K/ul RBC 5.49 (4.70-6.10) M/uL Hgb 15.2 (14.0-18.0) g/dl Hct 46.8 (42.0-52.0) % MCV 85.2 (80.0-100.0) fL MCH 27.7 (25.0-34.0) pg MCHC 32.5 (32.0-36.0) g/dL RDW Std Deviation 52.8 H (36.4-46.3) fL RDW Coeff of Мария 17.6 H (11.5-14.5) % Plt Count 200 (130-400) K/uL MPV 10.3 (9.4-12.4) fL Immature Gran % (Auto) 0.5 % Neut % (Auto) 72.8 % Lymph % (Auto) 12.3 % Jack % (Auto) 11.9 % Eos % (Auto) 1.7 % Baso % (Auto) 0.8 % Neut # (Auto) 5.56 (1.40-6.50) K/uL Lymph # (Auto) 0.94 L (1.2-3.4) K/uL Jack # (Auto) 0.91 H (0.11-0.59) K/uL Eos # (Auto) 0.13 (0-0.50) K/uL Baso # (Auto) 0.06 (0-0.2) K/uL Immature Gran # (Auto) 0.04 (0.01-0.20) K/uL ESR 118 H (0-20) mm/hr PT (9.0-12.0) Seconds INR (0.9-1.1) APTT (21.0-31.0) Seconds PTT Ratio Sodium 135 L (136-145) mmol/L Potassium 4.2 (3.5-5.1) mmol/L Chloride 101 (98-107) mmol/L Carbon Dioxide 29 (21-32) mmol/L Anion Gap 5 (3-11) BUN 46 H (6-23) mg/dl Creatinine 1.95 H (0.6-1.4) mg/dl Est Cr Clr Drug Dosing 70.9 ml/min Est GFR ( Amer) 42.4 ml/min Est GFR (Non-Af Amer) 36.6 ml/min BUN/Creatinine Ratio 23.6 H (10-20) Glucose 71 (70-99(Fasting)) mg/dl POC Glucose (70-99) mg/dl Calcium 8.8 (8.6-10.3) mg/dl Total Bilirubin 0.7 (0.2-1.0) mg/dl AST 37 (13-39) U/L ALT 28 (7-52) U/L Alkaline Phosphatase 119 H (34-104) U/L Troponin I High Sens 10.9 (0-20) pg/ml C-Reactive Protein 17.74 H (0-0.5) mg/dl B-Natriuretic Peptide (0-100) pg/ml Total Protein 7.8 (6.0-8.3) gm/dl Albumin 3.3 L (3.4-5.0) gm/dl Globulin 4.5 H (2.5-4.0) gm/dl Albumin/Globulin Ratio 0.7 L (0.9-2) Procalcitonin (0-0.5) ng/ml 12/02/22 12/02/22 12/02/22 Range/Units 12:45 12:45 12:45 WBC (4.8-10.8) K/ul RBC (4.70-6.10) M/uL Hgb (14.0-18.0) g/dl Hct (42.0-52.0) % MCV (80.0-100.0) fL MCH (25.0-34.0) pg MCHC (32.0-36.0) g/dL RDW Std Deviation (36.4-46.3) fL RDW Coeff of Мария (11.5-14.5) % Plt Count (130-400) K/uL MPV (9.4-12.4) fL Immature Gran % (Auto) % Neut % (Auto) % Lymph % (Auto) % Jack % (Auto) % Eos % (Auto) % Baso % (Auto) % Neut # (Auto) (1.40-6.50) K/uL Lymph # (Auto) (1.2-3.4) K/uL Jack # (Auto) (0.11-0.59) K/uL Eos # (Auto) (0-0.50) K/uL Baso # (Auto) (0-0.2) K/uL Immature Gran # (Auto) (0.01-0.20) K/uL ESR (0-20) mm/hr PT 29.0 H (9.0-12.0) Seconds INR 2.8 H (0.9-1.1) APTT 40.0 H (21.0-31.0) Seconds PTT Ratio 1.4 Sodium (136-145) mmol/L Potassium (3.5-5.1) mmol/L Chloride (98-107) mmol/L Carbon Dioxide (21-32) mmol/L Anion Gap (3-11) BUN (6-23) mg/dl Creatinine (0.6-1.4) mg/dl Est Cr Clr Drug Dosing ml/min Est GFR ( Amer) ml/min Est GFR (Non-Af Amer) ml/min BUN/Creatinine Ratio (10-20) Glucose (70-99(Fasting)) mg/dl POC Glucose (70-99) mg/dl Calcium (8.6-10.3) mg/dl Total Bilirubin (0.2-1.0) mg/dl AST (13-39) U/L ALT (7-52) U/L Alkaline Phosphatase (34-104) U/L Troponin I High Sens (0-20) pg/ml C-Reactive Protein (0-0.5) mg/dl B-Natriuretic Peptide 101 H (0-100) pg/ml Total Protein (6.0-8.3) gm/dl Albumin (3.4-5.0) gm/dl Globulin (2.5-4.0) gm/dl Albumin/Globulin Ratio (0.9-2) Procalcitonin 0.67 H (0-0.5) ng/ml 12/02/22 Range/Units 13:58 WBC (4.8-10.8) K/ul RBC (4.70-6.10) M/uL Hgb (14.0-18.0) g/dl Hct (42.0-52.0) % MCV (80.0-100.0) fL MCH (25.0-34.0) pg MCHC (32.0-36.0) g/dL RDW Std Deviation (36.4-46.3) fL RDW Coeff of Мария (11.5-14.5) % Plt Count (130-400) K/uL MPV (9.4-12.4) fL Immature Gran % (Auto) % Neut % (Auto) % Lymph % (Auto) % Jack % (Auto) % Eos % (Auto) % Baso % (Auto) % Neut # (Auto) (1.40-6.50) K/uL Lymph # (Auto) (1.2-3.4) K/uL Jack # (Auto) (0.11-0.59) K/uL Eos # (Auto) (0-0.50) K/uL Baso # (Auto) (0-0.2) K/uL Immature Gran # (Auto) (0.01-0.20) K/uL ESR (0-20) mm/hr PT (9.0-12.0) Seconds INR (0.9-1.1) APTT (21.0-31.0) Seconds PTT Ratio Sodium (136-145) mmol/L Potassium (3.5-5.1) mmol/L Chloride (98-107) mmol/L Carbon Dioxide (21-32) mmol/L Anion Gap (3-11) BUN (6-23) mg/dl Creatinine (0.6-1.4) mg/dl Est Cr Clr Drug Dosing ml/min Est GFR ( Amer) ml/min Est GFR (Non-Af Amer) ml/min BUN/Creatinine Ratio (10-20) Glucose (70-99(Fasting)) mg/dl POC Glucose 69 L* (70-99) mg/dl Calcium (8.6-10.3) mg/dl Total Bilirubin (0.2-1.0) mg/dl AST (13-39) U/L ALT (7-52) U/L Alkaline Phosphatase (34-104) U/L Troponin I High Sens (0-20) pg/ml C-Reactive Protein (0-0.5) mg/dl B-Natriuretic Peptide (0-100) pg/ml Total Protein (6.0-8.3) gm/dl Albumin (3.4-5.0) gm/dl Globulin (2.5-4.0) gm/dl Albumin/Globulin Ratio (0.9-2) Procalcitonin (0-0.5) ng/ml Administered Medications Discontinued Medications Piperacillin Sod/Tazobactam Sod (Zosyn) 4.5 gm in 120 mls @ 240 mls/hr IV NOW ONE Stop: 12/02/22 13:10 Last Admin: 12/02/22 13:06 Dose: 240 mls/hr Documented By: HNVince Morphine Sulfate (Morphine Sulfate 4 Mg/Ml 1 Ml Carp\Vial) 4 mg IV NOW STA Stop: 12/02/22 15:48 Last Admin: 12/02/22 15:52 Dose: 4 mg Documented By: ARS Imaging Data Radiologist's Impression: Duplex Scan Lower Extremity Artery 12/02/22 12:31 US arterial duplex LE RT CLINICAL HISTORY: infection, discolored TECHNIQUE: Real-time grayscale and color and spectral Doppler ultrasound imaging of the right lower extremity arteries was performed. Measurements calculated based on NASCET criteria. COMPARISON: None available at the time of this dictation. FINDINGS: RIGHT: Common femoral artery: Triphasic waveforms. Peak systolic velocity (PSV) 56 cm/s. Deep femoral artery: Monophasic waveforms. PSV 19 cm/s. Superficial femoral artery: Triphasic waveforms. PSV 55 cm/s. Popliteal artery: Triphasic waveforms. PSV 70 cm/s. Anterior tibial artery: Monophasic waveforms. PSV 67 cm/s. Posterior tibial artery: not visualized proximally, monophasic waveforms with PSV 41 cm/s distally Peroneal artery: Monophasic waveforms. PSV 69 cm/s. Dorsalis pedis: Triphasic waveforms. PSV 26 cm/s. Reference ranges: Normal Ankle/Brachial Index (JUSTYNA) 1.0-1.4; 0.91-0.99 borderline; < or = 0.9 abnormal (0.7-0.89 mild, 0.51-0.69 moderate, < or = 0.5 severe peripheral arterial disease). Normal Toe/Brachial Index (TBI) > or = 0.6; < 0.6 abnormal (0.34-0.59 mild, 0.12-0.34 moderate, < or = 0.11 severe peripheral arterial disease). IMPRESSION: Decreased velocities and monophasic waveforms in the lower extremity compatible with peripheral artery disease. ACT 112: Negative or not required by law. Electronically signed by: Fabrizio Pacheco M.D. 12/02/2022 4:03 PM Chest X-Ray 12/02/22 12:34 SINGLE VIEW CHEST CLINICAL HISTORY: Lower extremity edema FINDINGS: 2 AP, portable, upright chest radiographs are compared to study dated 08/07/2021 and correlated with chest CT dated 08/15/2020. A single lead cardiac AICD is unchanged in position and partially obscures the left upper chest. The heart is enlarged. There is mild pulmonary vascular congestion. Atelectasis is seen at the lung bases. The lungs and pleural spaces are otherwise clear. No pneumothorax is seen. The skeletal structures are osteopenic. The bony thorax is grossly intact. IMPRESSION: Cardiomegaly and AICD with mild pulmonary vascular congestion. ACT 112: Negative or not required by law. Electronically signed by: Lukas Trivedi M.D. 12/02/2022 1:09 PM Discharge Plan Visit Data Chief Complaint: Leg Injury/Pain Stated Complaint: INFECTION IN RIGHT LEG; PAIN ED Provider: Bruno Zarco Discharge Problem: Cellulitis of right leg, PVD (peripheral vascular disease), 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 Patient Disposition: Being Evaluated by Hospitalist Forms Stand Alone Forms: My [facility] Prescriptions Prescriptions: No Action fluticasone propionate [Flonase Allergy Relief] 50 mcg/actuation spray,suspension 2 sprays INTNAS BID mometasone-formoterol [Dulera] 200-5 mcg/actuation HFA aerosol inhaler 2 puffs INH BID omeprazole 20 mg capsule,delayed release(DR/EC) 20 mg PO QAM insulin aspart U-100 [Novolog U-100 Insulin aspart] 100 unit/mL solution 240 unit continuous subcutaneous infusion DAILY Qty: 216 3RF Patient Comments: insulin pump Trulicity 1.5 mg/0.5 mL pen injector 1.5 mg subcut Q7D 30 Days Qty: 2.5 5RF Rx Instructions: Tuesdays Entresto 24-26 mg tablet 1 tab PO BID empagliflozin 25 mg tablet 25 mg PO DAILY Qty: 90 3RF tramadol 50 mg tablet 50 mg PO BID PRN (Reason: Pain) gabapentin 300 mg Capsule 300 mg PO TID ergocalciferol (vitamin D2) 2,500 unit Capsule 50,000 unit PO WK Rx Instructions: saturdays albuterol sulfate [Ventolin HFA] 90 mcg/actuation Hfa Aerosol Inhaler 2 puff INHALATION QID PRN (Reason: SHORT OF BREATH) clobetasol 0.05 % cream 1 applic TOPICAL BID PRN (Reason: dry skin) aspirin 81 mg Tablet,Delayed Release (Dr/Ec) 81 mg PO QAM magnesium oxide 400 mg magnesium Tablet 400 mg PO DAILY warfarin 4 mg Tablet See Rx Instructions .ROUTE .COMPLEX Rx Instructions: per pt 2 mg orally on , thu,and thu warfarin 1 mg tablet 1 mg PO USEASDIRECTD Rx Instructions: per pt thursday and thursday 1 mg UD BY [facility] potassium chloride 20 mEq tablet extended release 20 meq PO DAILY Qty: 30 0RF metoprolol succinate 50 mg tablet extended release 24 hr 50 mg PO BID Rx Instructions: total 75mg bid metoprolol succinate 25 mg tablet extended release 24 hr 25 mg PO BID Rx Instructions: total 75mg bid spironolactone 25 mg Tablet 25 mg PO DAILY levothyroxine 88 mcg tablet 88 mcg PO DAILY atorvastatin 80 mg tablet 80 mg PO HS Qty: 0 0RF Rx Instructions: Do not take it as long as you are on Daptomycin torsemide 20 mg tablet See Rx Instructions .ROUTE .COMPLEX Rx Instructions: 3 tabs daily hydrocodone-acetaminophen 10-325 mg tablet See Rx Instructions .ROUTE .COMPLEX PRN (Reason: Pain) Rx Instructions: as directed Referrals Referrals: Sherry Maya, [Primary Care Provider] -
--- NOTE | 2022-12-02 14:42 | Electrocardiogram Report ---
Test Reason : Blood Pressure : / mmHG Vent. Rate : 071 BPM Atrial Rate : 000 BPM P-R Int : 000 ms QRS Dur : 102 ms QT Int : 388 ms P-R-T Axes : 000 -28 148 degrees QTc Int : 421 ms Atrial fibrillation Poor R wave progression, consider anterior DC vs. lead placement vs. LVH Abnormal ECG When compared with ECG of 07-AUG-2021 19:23, Atrial fibrillation has replaced Sinus rhythm Left anterior fascicular block is no longer Present Nonspecific T wave abnormality now evident in Inferior leads T wave inversion more evident in Anterolateral leads Confirmed by Nader Mcpherson ([id number]) on 12/02/2022 2:41:59 PM Referred By: REFERRED SELF Confirmed By:Austin Mcpherson
[2022-12-02] MEDS ORDERED: MoRPHine SULFATE 4 MG/ML 1 ML CARP\\VIAL IV STA (15:47)
--- NOTE | 2022-12-02 16:04 | Ultrasound Report ---
US arterial duplex LE RT CLINICAL HISTORY: infection, discolored TECHNIQUE: Real-time grayscale and color and spectral Doppler ultrasound imaging of the right lower e xtremity arteries was performed. Measurements calculated based on NASCET criteria. COMPARISON: None available at the time of this dictation. FINDINGS: RIGHT: Common femoral artery: Triphasic waveforms. Peak systolic velocity (PSV) 56 cm/s. Deep femoral artery: Monophasic waveforms. PSV 19 cm/s. Superficial femoral artery: Triphasic waveforms. PSV 55 cm/s. Popliteal artery: Triphasic waveforms. PSV 70 cm/s. Anterior tibial artery: Monophasic waveforms. PSV 67 cm/s. Posterior tibial artery: not visualized proximally, monophasic waveforms with PSV 41 cm/s distally Peroneal artery: Monophasic waveforms. PSV 69 cm/s. Dorsalis pedis: Triphasic waveforms. PSV 26 cm/s. Reference ranges: Normal Ankle/Brachial Index (JUSTYNA) 1.0-1.4; 0.91-0.99 borderline; < or = 0.9 abnormal (0.7-0.89 mild, 0.51-0.69 moderate, < or = 0.5 severe peripheral arterial disease). Normal Toe/Brachial Index (TBI) > or = 0.6; < 0.6 abnormal (0.34-0.59 mild, 0.12-0.34 moderate, < or = 0.11 severe peripheral arterial disease). IMPRESSION: Decreased velocities and monophasic waveforms in the lower extremity compatible with peripheral arter y disease. ACT 112: Negative or not required by law. Electronically signed by: Fabrizio Pacheco M.D. 12/02/2022 4:03 PM
[2022-12-02] MEDS ORDERED: FUROSEMIDE INJ 20 MG/2 ML VIAL IV ONE (16:54)
--- NOTE | 2022-12-02 17:13 | History & Physical Report ---
Date of Service December 02, 2022 Assessment & Plan (1) Cellulitis of right leg: Plan: worsening cellulitis 2/2 leg wounds complicated by poor circulation from known peripheral vascular disease. Cont broad spectrum antibiotics with cefepime pending culture results and clinical improvement. Lower risk for MRSA at this point, but would consider vancomycin or daptomycin if no significant improvement in 24-48 hours. No evidence of sepsis today. (2) Leg wound, right: Plan: wound care nurse consulted. (3) Peripheral arterial disease: Plan: chronic, consider outpatient followup with vascular surgeon. Cont ASA, warfarin, statin. (4) Acute kidney injury: Plan: Creatinine today is 1.95 with baseline of 1.4. Hold Entresto, Torsemide. He did receive Lasix 20mg IV in the ER for lower extremity swelling. Urine is dark in color and patient hasn't been eating and drinking well. Will hold on diuretics or fluids at this point and just let him eat and drink to thirst. Repeat BMP in am. (5) Diabetic peripheral neuropathy associated with type 2 diabetes mellitus: Plan: Uncontrolled [facility] A1C 8.3 in August 17. Repeat pending. With patient reporting malfunctioning of the insulin pump because the tubing isn't long enough, will institute basal/bolus insulin during this admission as we trouble shoot issues with the pump. (6) Hypoglycemia: Plan: glucose 69 in the ER today. May be related to pump issues, but patient also not eating and drinking much today as he feels poorly. Food ordered, cont to monitor with frequent glucose checks. (7) CKD (chronic kidney disease) stage 3, GFR 30-59 ml/min: Plan: chronic, new kidney injury noted as above. Minimize contrast or other nephrotoxic substances and renally dose meds as needed. (8) NINA on CPAP: Plan: chronic, stable. Cont CPAP qHS (9) Ischemic cardiomyopathy: Plan: CAD chronic, stable. Volume status is difficult to gauge 2/2 his lower extremity swelling with h/o chronic lymphedema in the setting of recent poor PO intake and dark concentrated urine. Hold torsemide, entresto, jardiance for the time being. Cont Toprol XL. Known h/o ventricular tachycardia s/p ablation 11/07/2019. ICD implanted (10) Hypothyroidism: Plan: chronic, stable. Cont levothyroxine per home regimen. (11) Hypertension: Plan: chronic, stable. Some hypotension in the ER today possibly related to IV morphine administered. Hold Entresto and Torsemide at this time. Cont to monitor. (12) Diabetes type 2, uncontrolled: Plan: chronic, uncontrolled. Plan as noted above. (13) Atrial fibrillation: Plan: PAF, currently in afib. Rate controlled with Toprol XL per home regimen. INR is therapeutic, cont warfarin per current dosing. (14) Morbid obesity: Plan: Lifestyle changes recommended. (15) Chronic pain: Plan: Chronic hydrocodone/APAP alternating with Tramadol (for driving) per patient which was verified by PDMP. Cont hydrocodone q6hr PRN pain which he is currently reporting in his legs. Will minimize intravenous narcotics to avoid excessive hypotension as happened in the ER. DVT prophylaxis-warfarin, therapeutic Full Code Dispo-med telemetry, per PT/OT evaluations and clinical improvement on antibiotics. I spent a total of 75minutes coordinating, documenting, and providing care for this patient excluding time spent in the performance of separately billed services Katharina Flores DO [facility] [address] Hospitalist History of Present Illness Chief Complaint: leg injury and pain Primary Care Provider: Sherry Maya DO 57-year-old morbidly obese diabetic man presents with worsening right leg pain for the last 1 to 2 weeks. He has 2 open leg wounds on his right lower leg that have been worsening despite treatment at the wound care clinic locally. He has known peripheral vascular disease and has significant cellulitis today. He reports pain in his leg nd in his neck he reports 2/2 feeling unwell. He is not septic. Denies fevers but reports intermittent chills. He did start doxycycline yesterday after speaking with his doctor but they were unable to see him. He does not report any new trauma to his leg. He has a known left BKA secondary to history of osteomyelitis in the past. Hypoglycemic in the ER today with glucose of 69 and he reports he is hungry. Patient does report that per wound care nurse the wound had a foul odor a couple days ago. Allergies Allergy/AdvReac Type Severity Reaction Status Date / Time benzonatate AdvReac Intermediate choking, Verified 06/06/22 14:59 gagging Home Medications Medication Instructions Recorded Confirmed Type fluticasone propionate 50 2 sprays intranasal BID 12/21/17 12/02/22 History mcg/actuation nasal spray,suspension (Flonase Allergy Relief) mometasone-formoterol HFA 200 2 puffs inhalation BID 12/21/17 12/02/22 History mcg-5 mcg/actuation aerosol inhaler (Dulera) omeprazole 20 mg capsule,delayed 20 mg PO QAM 12/21/17 12/02/22 History release ergocalciferol (vitamin D2) 62.5 50,000 unit PO WK 04/12/19 12/02/22 History mcg (2,500 unit) capsule gabapentin 300 mg capsule 300 mg PO TID 04/12/19 12/02/22 History clobetasol 0.05 % topical cream 1 applic topical BID PRN dry skin 01/18/20 12/02/22 History albuterol sulfate 90 mcg/actuation 2 puff inhalation QID PRN SHORT OF 05/30/20 12/02/22 History aerosol inhaler (Ventolin HFA) BREATH aspirin 81 mg tablet,delayed 81 mg PO QAM 06/12/20 12/02/22 History release warfarin 1 mg tablet 1 mg PO USEASDIRECTD 07/12/20 12/02/22 History potassium chloride 20 mEq 20 meq PO DAILY #30 tabs 08/23/20 12/02/22 Rx tablet,extended release levothyroxine 88 mcg tablet 88 mcg PO DAILY 12/13/20 12/02/22 History metoprolol succinate 25 mg 25 mg PO BID 12/13/20 12/02/22 History tablet,extended release 24 hr metoprolol succinate 50 mg 50 mg PO BID 12/13/20 12/02/22 History tablet,extended release 24 hr spironolactone 25 mg tablet 25 mg PO DAILY 12/13/20 12/02/22 History atorvastatin 80 mg tablet 80 mg PO HS #0 tabs 12/21/20 12/02/22 Rx magnesium oxide 400 mg PO DAILY 08/08/21 12/02/22 History warfarin 4 mg tablet See Rx Instructions .Route .COMPLEX 08/08/21 12/02/22 History empagliflozin 25 mg tablet 25 mg PO DAILY #90 tabs 09/27/21 12/02/22 Rx sacubitril 24 mg-valsartan 26 mg 1 tab PO BID 09/27/21 12/02/22 History tablet (Entresto) insulin aspart U-100 100 unit/mL 240 unit (2.4 mL) continuous 04/19/22 12/02/22 Rx subcutaneous solution (Novolog subcutaneous infusion DAILY #216 mL U-100 Insulin aspart) tramadol 50 mg tablet 50 mg PO BID PRN Pain 06/06/22 12/02/22 History dulaglutide 1.5 mg/0.5 mL 1.5 mg (0.5 mL) subcut Q7D 30 days 12/02/22 12/02/22 Rx subcutaneous pen injector #2.5 mL (Trulicity) hydrocodone 10 mg-acetaminophen See Rx Instructions .Route 12/02/22 12/02/22 History 325 mg tablet .COMPLEX PRN Pain torsemide 20 mg tablet See Rx Instructions .Route .COMPLEX 12/02/22 12/02/22 History Past Med/Surg History Medical History Acute hypoxemic respiratory failure Acute on chronic combined systolic (congestive) and diastolic (congestive) heart failure Acute on chronic renal failure Acute osteomyelitis of left foot Arthritis Asthma well controlled, 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 Bacteremia due to group B Streptococcus CAD (coronary artery disease) Cardiac defibrillator in situ 2007 with replacement 03/2020. follows with Dr. Maya. Cellulitis of left lower leg CHF (congestive heart failure) CKD (chronic kidney disease) stage 3, GFR 30-59 ml/min Deformity of foot Depression Depression with suicidal ideation Diabetes type 2, uncontrolled Diabetic peripheral neuropathy associated with type 2 diabetes mellitus Diabetic ulcer of left foot associated with type 2 diabetes mellitus, with fat layer exposed Diabetic ulcer of left heel associated with diabetes mellitus due to underlying condition, limited to breakdown of skin Diabetic ulcer of right foot Dyslipidemia GERD (gastroesophageal reflux disease) H/O osteomyelitis History of diabetic ulcer of foot Hx of myocardial infarction found on testing Hx of osteomyelitis Hx of sepsis 06/2019 Hypertension Hypokalemia Hypothyroidism Ischemic cardiomyopathy Adams fracture Base of left fifth metatarsal, nonhealing x years Lymphedema Morbid obesity Peripheral arterial disease Pneumonia due to COVID-19 virus Rectal bleeding SARS-CoV-2 positive Sepsis Sleep apnea BIPAP Sustained VT (ventricular tachycardia) T2DM (type 2 diabetes mellitus) Venous stasis ulcer of right lower leg with edema of right lower leg Vitamin D deficiency Surgical History H/O cardiac radiofrequency ablation OCTOBER 2019 ([facility]) AT [facility] H/O foot surgery LEFT FOOT ULCER DEBRIDEMENT H/O shoulder surgery left History of cardiac cath V. tach -- no stent. 06/2019. unsure where it was done History of colonoscopy History of esophagogastroduodenoscopy (EGD) History of sinus surgery Hx of amputation of lesser toe Hx of tonsillectomy Family History Sister Family history of diabetes mellitus 2 Grandmother (Maternal) Family history of diabetes mellitus Grandfather (Maternal) Family history of diabetes mellitus Father Cancer Mother Cancer Other No family history of adverse response to anesthesia Social History Smoking Status: Never smoker Second Hand Exposure: No; Do You Dip or Chew Tobacco: No; Hx Alcohol Use: No Hx Substance Use: No Preferred Language: Romansh Communication Ability: Effective Remnants Cutter Required: No Beliefs That Will Affect Care: None marital status: Current Living Situation: Alone current occupational status: disabled How many Children do You have: 3 Feels Safe at Home: Yes Assistive Devices: Wheelchair Review of Systems Review of Systems: All systems reviewed negative except as indicated above. Physical Exam Physical Exam: CONSTITUTIONAL: morbid obesity, vitals as above, NAD EYES: normal conjunctivae, no scleral icterus ENT: external ear and nose normal NECK: trachea midline RESPIRATORY: clear to auscultation bilaterally, no crackles, rales or wheezes, normal respiratory effort CARDIOVASCULAR: irregular rate and rhythm, S1 and 2 heard without murmurs, gallops or rubs, no JVD, LE swelling without pitting edema. CHEST: inspection of chest was normal GASTROINTESTINAL: soft, nontender ND but protuberant, no guarding MUSCULOSKELETAL: strength 5/5 throughout, head is normocephalic and atraumatic, residual limb with prosthetic in place on the left leg. SKIN: warm and dry, right lower extremity is significantly swollen with a purplish color throughout most of the lower extremity and proximal to the right knee. There is redness extending up into the right medial thigh. There are 2 small open wounds to the right lower leg 1 on the anterior 1 on the posterior side. There is minimal drainage coming from this. Per ER doctor the drainage was a greenish blue-color and had a foul odor when the dressing was originally taken off. There is a partial amputation of the right big toe and unkempt nails. Right leg is warm and well-perfused. NEUROLOGIC: CN 2-12 grossly intact, no sensory deficit, normal cognition, normal speech, no tremor PSYCHIATRIC: alert cooperative and oriented to person, place and time. Euthymic mood, makes good eye contact, language grossly intact, recent and remote memory grossly intact. Results & Data Results & Data Vital Signs (Past 12 Hours) Vital Signs Temp Pulse Resp BP Pulse Ox O2 Del Method 12/02/22 16:49 78 12/02/22 15:28 70 20 12/02/22 15:28 95/67 L 12/02/22 15:27 70 14 12/02/22 15:26 62 15 12/02/22 14:30 14 12/02/22 14:00 18 12/02/22 13:30 82 13 12/02/22 13:00 65 17 12/02/22 12:46 70 14 12/02/22 11:49 36.7 C 21 95 Room Air 12/02/22 12:56 74 12/02/22 11:53 36.7 C 74 21 104/69 95 Room Air Laboratory Results Short CBC 12/02/22 Range/Units 12:45 WBC 7.64 (4.8-10.8) K/ul Hgb 15.2 (14.0-18.0) g/dl Hct 46.8 (42.0-52.0) % Plt Count 200 (130-400) K/uL BMP 12/02/22 12:45 Sodium 135 L Potassium 4.2 Chloride 101 Carbon Dioxide 29 BUN 46 H Creatinine 1.95 H Glucose 71 Calcium 8.8 Liver Function 12/02/22 Range/Units 12:45 Total Bilirubin 0.7 (0.2-1.0) mg/dl AST 37 (13-39) U/L ALT 28 (7-52) U/L Alkaline Phosphatase 119 H (34-104) U/L Albumin 3.3 L (3.4-5.0) gm/dl Diagnostic Findings Duplex Scan Lower Extremity Artery 12/02/22 12:31 US arterial duplex LE RT CLINICAL HISTORY: infection, discolored TECHNIQUE: Real-time grayscale and color and spectral Doppler ultrasound imaging of the right lower extremity arteries was performed. Measurements calculated based on NASCET criteria. COMPARISON: None available at the time of this dictation. FINDINGS: RIGHT: Common femoral artery: Triphasic waveforms. Peak systolic velocity (PSV) 56 cm/s. Deep femoral artery: Monophasic waveforms. PSV 19 cm/s. Superficial femoral artery: Triphasic waveforms. PSV 55 cm/s. Popliteal artery: Triphasic waveforms. PSV 70 cm/s. Anterior tibial artery: Monophasic waveforms. PSV 67 cm/s. Posterior tibial artery: not visualized proximally, monophasic waveforms with PSV 41 cm/s distally Peroneal artery: Monophasic waveforms. PSV 69 cm/s. Dorsalis pedis: Triphasic waveforms. PSV 26 cm/s. Reference ranges: Normal Ankle/Brachial Index (JUSTYNA) 1.0-1.4; 0.91-0.99 borderline; < or = 0.9 abnormal (0.7-0.89 mild, 0.51-0.69 moderate, < or = 0.5 severe peripheral arterial disease). Normal Toe/Brachial Index (TBI) > or = 0.6; < 0.6 abnormal (0.34-0.59 mild, 0.12-0.34 moderate, < or = 0.11 severe peripheral arterial disease). IMPRESSION: Decreased velocities and monophasic waveforms in the lower extremity compatible with peripheral artery disease. ACT 112: Negative or not required by law. Electronically signed by: Fabrizio Pacheco M.D. 12/02/2022 4:03 PM Chest X-Ray 12/02/22 12:34 SINGLE VIEW CHEST CLINICAL HISTORY: Lower extremity edema FINDINGS: 2 AP, portable, upright chest radiographs are compared to study dated 08/07/2021 and correlated with chest CT dated 08/15/2020. A single lead cardiac AICD is unchanged in position and partially obscures the left upper chest. The heart is enlarged. There is mild pulmonary vascular congestion. Atelectasis is seen at the lung bases. The lungs and pleural spaces are otherwise clear. No pneumothorax is seen. The skeletal structures are osteopenic. The bony thorax is grossly intact. IMPRESSION: Cardiomegaly and AICD with mild pulmonary vascular congestion. ACT 112: Negative or not required by law. Electronically signed by: Lukas Trivedi M.D. 12/02/2022 1:09 PM Code Status & VTE Plan VTE Prophylaxis Plan VTE Prophylaxis will be ordered: Yes (13) Atrial fibrillation Atrial fibrillation type: paroxysmal Qualified Code(s): I48.0 - Paroxysmal atrial fibrillation
[2022-12-02] MEDS ORDERED: FUROSEMIDE 40 MG/4 ML VIAL IV ONE (17:30)
[2022-12-02] MEDS ORDERED: ACETAMINOPHEN 325 MG TAB PO PRN (19:12)
[2022-12-02] MEDS ORDERED: GLUCOSE 40% GEL 15 GM TUBE PO PRN (19:22)
[2022-12-02] MEDS ORDERED: GLUCOSE 10 TAB/TUBE PO PRN (19:22)
[2022-12-02] MEDS ORDERED: GLUCAGON FOR INJ 1 MG VIAL SQ PRN (19:22)
[2022-12-02] MEDS ORDERED: DEXTROSE 50% 50 ML SYRINGE IV PRN (19:22)
[2022-12-02] MEDS ORDERED: CARBOHYDRATES FOR HYPOGLYCEMIA PO PRN (19:22)
[2022-12-02] MEDS ORDERED: ALBUTEROL HFA 8 GM INHALER INH PRN (19:50)
[2022-12-02] MEDS ORDERED: HYDROcodone/ACETAMINOPHEN 10/325 TAB PO STA (20:29)
[2022-12-02] MEDS: CEFEPIME 2,000 MG in SYRINGE 0 ML IV SCH (21:12)
[2022-12-02] MEDS: ATORVASTATIN 40 MG TAB PO SCH (21:42)
[2022-12-02] MEDS: METOPROLOL SUCC 25MG EXT REL TAB PO SCH (21:43)
[2022-12-02] MEDS: GABAPENTIN 300 MG CAP PO SCH (21:44)
[2022-12-02] MEDS: FLUTICASONE PROPIONATE NA SPR 16 GM BTL NAE SCH (21:44)
[2022-12-02] MEDS: METOPROLOL SUCC 50MG EXT REL TAB PO SCH (21:44)
--- NOTE | 2022-12-02 21:47 | XRay Report ---
XR tibia fibula RT 2V CLINICAL HISTORY: swelling, infection TECHNIQUE: 2 radiographic views of the right leg were obtained. Comparison: None available at the time of this dictation. FINDINGS: There is no evidence of an acute fracture. Joint spaces are well-preserved. Soft tissue swelling is s een. IMPRESSION: No evidence of acute osseous injury. ACT 112: Negative or not required by law. Electronically signed by: Fabrizio Pacheco M.D. 12/02/2022 9:46 PM
[2022-12-02] MEDS: LANTUS PER UNIT CHARGE SQ SCH (22:35)
[2022-12-02] MEDS: INSULIN ASPART PER UNIT CHARGE SC SCH (22:35)
[2022-12-03] MEDS ORDERED: HYDROmorphone INJ 0.5 MG/0.5 ML SYR IV STA ×2 (00:26→05:48)
[2022-12-03] MEDS: HYDROcodone/ACETAMINOPHEN 10/325 TAB PO PRN ×2 (04:22→10:09)
[2022-12-03] MEDS: CEFEPIME 2,000 MG in SYRINGE 0 ML IV SCH ×3 (04:24→19:54)
[2022-12-03] MEDS: LEVOTHYROXINE SODIUM 88 MCG TABLET PO SCH (05:36)
[2022-12-03 07:55] LABS: Hematocrit (blood only) 48.2 % (42.0-52.0); Hemoglobin 15.4 g/dl (14.0-18.0); Mean Corpuscular Hemoglobin 27.5 pg (25.0-34.0); Mean Corpuscular Volume 86.1 fL (80.0-100.0); Mean Platelet Volume 9.8 fL (9.4-12.4); Platelet Count 216 K/uL (130-400); RDW Coefficient of Variation 17.6 % (11.5-14.5); RDW Standard Deviation 53.4 fL (36.4-46.3); White Blood Count 7.16 K/ul (4.8-10.8)
[2022-12-03 08:30] LABS: INR 3.7 (0.9-1.1)
[2022-12-03] MEDS: GABAPENTIN 300 MG CAP PO SCH ×3 (08:34→19:56)
[2022-12-03] MEDS: FLUTICASONE/VILANTEROL 200/25MCG 14 PUFFS/INHALER INH SCH (08:34)
[2022-12-03] MEDS: MAGNESIUM OXIDE 400 MG TAB PO SCH (08:34)
[2022-12-03] MEDS: ASPIRIN 81 MG ECTAB PO SCH (08:34)
[2022-12-03] MEDS: FLUTICASONE PROPIONATE NA SPR 16 GM BTL NAE SCH ×2 (08:34→19:55)
[2022-12-03] MEDS: PANTOprazole 40 MG TAB PO SCH (08:35)
[2022-12-03] MEDS: METOPROLOL SUCC 25MG EXT REL TAB PO SCH ×2 (08:35→19:56)
[2022-12-03] MEDS: SPIRONOLACTONE 25 MG TAB PO SCH (08:35)
[2022-12-03] MEDS: METOPROLOL SUCC 50MG EXT REL TAB PO SCH ×2 (08:35→19:56)
[2022-12-03 08:43] LABS: Estimated Average Glucose 209 mg/dl; Hemoglobin A1C 8.9 % (4.5-5.6)
[2022-12-03] MEDS: LANTUS PER UNIT CHARGE SQ SCH ×2 (08:48→23:04)
[2022-12-03] MEDS: INSULIN ASPART PER UNIT CHARGE SC SCH ×4 (08:49→23:04)
[2022-12-03 08:57] LABS: Calcium 8.8 mg/dl (8.6-10.3); Potassium 5.3 mmol/L (3.5-5.1)
[2022-12-03] MEDS ORDERED: POTASSIUM CHLORIDE CRTAB 20 MEQ TABCR PO SCH (09:00)
[2022-12-03 09:01] LABS: BUN Creatinine Ratio 26.7 (10-20); Creatinine Clr Calc Pharmacy 76.8 ml/min; Est GFR (African American) 46.7 ml/min; Est GFR (Non-African American) 40.3 ml/min
[2022-12-03] MEDS: HYDROmorphone INJ 0.5 MG/0.5 ML SYR IV PRN ×2 (12:43→20:12)
[2022-12-03] MEDS ORDERED: WARFARIN SOD 2 MG TAB PO SCH (16:00)
--- NOTE | 2022-12-03 17:24 | Hospitalist Progress Note ---
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 Worsening cellulitis secondary to leg wounds complicated by poor circulation from known peripheral vascular disease. Patient was started on cefepime, patient has been afebrile, will continue same. Consult podiatry and infectious disease. Wound care nurse consulted. Follow admitting blood culture and wound culture. Peripheral vascular disease: Chronic, outpatient follow-up with vascular surgeon . Continue home aspirin, warfarin, statin. INR supratherapeutic today we will hold today's warfarin dose., Follow INR in AM. Acute kidney injury over CKD stage III: Admitting creatinine of 1.95, baseline creatinine of 1.4. Hold torsemide and Entresto. Creatinine minimally better, follow BMP in AM. Hyperkalemia, will hold home KCl supplementation and Aldactone. Low potassium diet For Now. Labs in AM. Hypoglycemia: At presentation in the ED, likely secondary to poor appetite secondary to acute illness prior to arrival. Continue to monitor. Other chronic medical conditions: Continue with/resume home meds as and when able. Diabetic peripheral neuropathy associated with type 2 diabetes mellitus: A1c of 8.3 in August 17. This admission 8.9. Uncontrolled diabetes. Sliding scale insulin while inpatient. museum educator consult. NINA on CPAP: Chronic, stable. Continue CPAP at nightly Ischemic cardiomyopathy: CAD chronic, stable. Volume status is difficult to gauge 2/2 his lower extremity swelling with h/o chronic lymphedema in the setting of recent poor PO intake and dark concentrated urine. Hold torsemide, entresto, jardiance for the time being. Cont Toprol XL. Known h/o ventricular tachycardia s/p ablation 11/07/2019. ICD implanted Hypothyroidism: chronic, stable. Cont levothyroxine per home regimen. Hypertension: Home medication on hold due to renal function, continue to monitor. Atrial fibrillation: PAF, currently in afib. Rate controlled with Toprol XL per home regimen. INR is therapeutic, cont warfarin per current dosing. Morbid obesity: Lifestyle changes recommended. Chronic pain: Chronic hydrocodone/APAP alternating with Tramadol (for driving) per patient which was verified by PDMP. Cont hydrocodone q6hr PRN pain which he is currently reporting in his legs. Will minimize intravenous narcotics to avoid excessive hypotension as happened in the ER. DVT prophylaxis- on warfarin Full Code Dispo-med telemetry. PT/OT. Admission and Anticipated Discharge Date Admission Date: December 02, 2022 Subjective Patient seen and examined at bedside as a follow-up of RLE cellulitis and acute kidney injury. Patient was sitting up at the edge of the bed, on room air, NAD, reports worst pain in the RLE overnight, denies fever or chills, reports eating okay and moving bowels okay. Physical Exam Physical Exam: GENERAL: Alert and oriented x3. NAD, on RA. Obese class III HEENT: No pallor, no icterus. Pupils equal, round and reactive to light. Oral mucosa moist. NECK: No JVD, no neck masses. HEART: S1 and S2 heard. irregular rate and rhythm. No murmur, no gallop. RESPIRATORY SYSTEM: Normal AP diameter. No accessory muscle use. No wheezing, no crackles. ABDOMEN: Soft, bowel sounds present, nontender, no distention. CENTRAL NERVOUS SYSTEM: No facial droop. Speech is clear. Obeys simple commands. Moves extremities. EXTREMITIES: Left below-knee amputation noted with prosthesis. Right great toe partial amputation noted. RLE with erythema/swelling/tenderness/warmth involving foot and lower to mid third of the leg. Chronically skin changes noted RLE. Results & Data Results & Data Vital Signs (Past 12 Hours) Vital Signs Temp Pulse Pulse Pulse Resp BP Pulse Ox 12/03/22 15:55 36.5 C 75 16 93/60 L 96 12/03/22 12:25 36.7 C 76 18 99/69 L 90 12/03/22 10:03 75 12/03/22 07:45 36.9 C 70 18 108/74 94 O2 Del Method 12/03/22 15:55 Room Air 12/03/22 12:25 Room Air 12/03/22 10:03 12/03/22 07:45 Room Air
[2022-12-03] MEDS: ATORVASTATIN 40 MG TAB PO SCH (19:56)
--- NOTE | 2022-12-03 21:12 | Orthopedic Consultation ---
Date of Consultation December 03, 2022 Assessment & Plan (1) Cellulitis of right leg: Patient seen, evaluated, and treated. Reviewed Preliminary wound culture. Awaiting sensitivities. Continue Maxipime. Right leg wounds cleansed with Betadine followed by saline. Application of Adaptic, ABD, compression smita wrap. We did review benefit of elevation and use of compression. Will continue to follow while Patient in house. Thank you for allowing me to participate in the care of this Patient. (2) Leg wound, right: (3) PVD (peripheral vascular disease): (4) 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: History of Present Illness Attending Physician: Sebastian Wallace MD History of Present Illness Patient is morbidly obese, type II diabetic, 57-year-old man who is seen at bedside for right leg cellutilis. Patient has an extensive past medical history significant for Acute hypoxemic respiratory failure, Acute on chronic combined systolic (congestive) and diastolic (congestive) heart failure, Acute on chronic renal failure, Arthritis, Asthma, CAD, Cardiac defibrillator in situ, CHF, CKD, Depression, type 2 uncontrolled diabetes, Diabetic ulcer of right foot, D yslipidemia, GERD, Hx of myocardial infarction, Hx of sepsis, Hypertension, Hypokalemia, Hypothyroidism, Ischemic cardiomyopathy, Lymphedema, Morbid obesity, Peripheral arterial disease Pneumonia due to COVID-19 virus, Rectal bleeding, SARS-CoV-2 positive, Sepsis, Sleep apnea, and Vitamin D deficiency. Patient seen at [facility] ED on 12/01/22 with worsening right leg pain for the last 1 to 2 weeks. He has 2 open leg wounds on his right lower leg that have been worsening despite treatment at the [place] wound care clinic. He had failed oral doxycycline and Dr. Mckenzie was unable to see him due to being on Vacation. Allergies Allergy/AdvReac Type Severity Reaction Status Date / Time benzonatate AdvReac Intermediate choking, Verified 06/06/22 14:59 gagging Home Medications Medication Instructions Recorded Confirmed Type fluticasone propionate 50 2 sprays intranasal BID 12/21/17 12/02/22 History mcg/actuation nasal spray,suspension (Flonase Allergy Relief) mometasone-formoterol HFA 200 2 puffs inhalation BID 12/21/17 12/02/22 History mcg-5 mcg/actuation aerosol inhaler (Dulera) omeprazole 20 mg capsule,delayed 20 mg PO QAM 12/21/17 12/02/22 History release ergocalciferol (vitamin D2) 62.5 50,000 unit PO WK 04/12/19 12/02/22 History mcg (2,500 unit) capsule gabapentin 300 mg capsule 300 mg PO TID 04/12/19 12/02/22 History clobetasol 0.05 % topical cream 1 applic topical BID PRN dry skin 01/18/20 History albuterol sulfate 90 mcg/actuation 2 puff inhalation QID PRN SHORT OF 05/30/20 12/02/22 History aerosol inhaler (Ventolin HFA) BREATH aspirin 81 mg tablet,delayed 81 mg PO QAM 06/12/20 12/02/22 History release warfarin 1 mg tablet 1 mg PO USEASDIRECTD 07/12/20 12/02/22 History potassium chloride 20 mEq 20 meq PO DAILY #30 tabs 08/23/20 12/02/22 Rx tablet,extended release levothyroxine 88 mcg tablet 88 mcg PO DAILY 12/13/20 12/02/22 History metoprolol succinate 25 mg 25 mg PO BID 12/13/20 12/02/22 History tablet,extended release 24 hr metoprolol succinate 50 mg 50 mg PO BID 12/13/20 12/02/22 History tablet,extended release 24 hr spironolactone 25 mg tablet 25 mg PO DAILY 12/13/20 12/02/22 History atorvastatin 80 mg tablet 80 mg PO HS #0 tabs 12/21/20 12/02/22 Rx magnesium oxide 400 mg PO DAILY 08/08/21 12/02/22 History warfarin 4 mg tablet See Rx Instructions .Route .COMPLEX 08/08/21 12/02/22 History empagliflozin 25 mg tablet 25 mg PO DAILY #90 tabs 09/27/21 12/02/22 Rx sacubitril 24 mg-valsartan 26 mg 1 tab PO BID 09/27/21 12/02/22 History tablet (Entresto) insulin aspart U-100 100 unit/mL 240 unit (2.4 mL) continuous 04/19/22 12/02/22 Rx subcutaneous solution (Novolog subcutaneous infusion DAILY #216 mL U-100 Insulin aspart) tramadol 50 mg tablet 50 mg PO BID PRN Pain 06/06/22 12/02/22 History dulaglutide 1.5 mg/0.5 mL 1.5 mg (0.5 mL) subcut Q7D 30 days 12/02/22 12/02/22 Rx subcutaneous pen injector #2.5 mL (Trulicity) hydrocodone 10 mg-acetaminophen See Rx Instructions .Route 12/02/22 12/02/22 History 325 mg tablet .COMPLEX PRN Pain torsemide 20 mg tablet See Rx Instructions .Route .COMPLEX 12/02/22 12/02/22 History Patient History Medical History Acute hypoxemic respiratory failure Acute on chronic combined systolic (congestive) and diastolic (congestive) heart failure Acute on chronic renal failure Acute osteomyelitis of left foot Arthritis Asthma well controlled, daily assisted 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 Bacteremia due to group B Streptococcus CAD (coronary artery disease) Cardiac defibrillator in situ 2007 with replacement 03/2020. follows with Dr. Maya. Cellulitis of left lower leg CHF (congestive heart failure) CKD (chronic kidney disease) stage 3, GFR 30-59 ml/min Deformity of foot Depression Depression with suicidal ideation Diabetes type 2, uncontrolled Diabetic peripheral neuropathy associated with type 2 diabetes mellitus Diabetic ulcer of left foot associated with type 2 diabetes mellitus, with fat layer exposed Diabetic ulcer of left heel associated with diabetes mellitus due to underlying condition, limited to breakdown of skin Diabetic ulcer of right foot Dyslipidemia GERD (gastroesophageal reflux disease) H/O osteomyelitis History of diabetic ulcer of foot Hx of myocardial infarction found on testing Hx of osteomyelitis Hx of sepsis 06/2019 Hypertension Hypokalemia Hypothyroidism Ischemic cardiomyopathy Adams fracture Base of left fifth metatarsal, nonhealing x years Lymphedema Morbid obesity Peripheral arterial disease Pneumonia due to COVID-19 virus Rectal bleeding SARS-CoV-2 positive Sepsis Sleep apnea BIPAP Sustained VT (ventricular tachycardia) T2DM (type 2 diabetes mellitus) Venous stasis ulcer of right lower leg with edema of right lower leg Vitamin D deficiency Surgical History H/O cardiac radiofrequency ablation OCTOBER 2019 ([facility]) AT [facility] H/O foot surgery LEFT FOOT ULCER DEBRIDEMENT H/O shoulder surgery left History of cardiac cath V. tach -- no stent. 06/2019. unsure where it was done History of colonoscopy History of esophagogastroduodenoscopy (EGD) History of sinus surgery Hx of amputation of lesser toe Hx of tonsillectomy Family History Sister Family history of diabetes mellitus 2 Grandmother (Maternal) Family history of diabetes mellitus Grandfather (Maternal) Family history of diabetes mellitus Father Cancer Mother Cancer Other No family history of adverse response to anesthesia Social History Smoking Status: Never smoker Second Hand Exposure: No; Do You Dip or Chew Tobacco: No; Hx Alcohol Use: Yes Alcohol type: hard liquor Hx Substance Use: No Preferred Language: Vietnamese Communication Ability: Effective Rn Correctional Required: No Beliefs That Will Affect Care: None marital status: Current Living Situation: Alone current occupational status: disabled How many Children do You have: 3 Other Information That Helps Us Care for You: No Feels Safe at Home: Yes Safety Concerns: Feels Safe At This Time Assistive Devices: Cane, Prosthesis, Scooter/Electric Scooter and Walker Assistive Devices Comment: Pt. reports electric WC at home is old/broken; needs another Review of Systems Review of Systems: All systems reviewed & are unremarkable except as noted in HPI & below Physical Exam Constitutional: + morbidly obese, cooperative and comfortable Eyes: normal visual smith by confrontation Neck: normal visual inspection Respiratory: normal respiratory effort Cardiovascular: Extremities: + edema (hyperpigmentation hyperkeratosis hyperplasia with papillomatosis & fibrosis) Musculoskeletal: Extremities: + amputation noted (BKA LE) Skin: + ulcer (Right lateral leg full thickness ulcers) and + erythema (LLE) Neurologic: moves all extremities (Absent epicritic sensation) Psychiatric: Orientation: alert and oriented x 3 Lymphatic: + lymphedema (Atrophic changes noted to skin secondary to lymphedema) Results & Data Vital Signs (Past 12 Hours) Vital Signs Temp Pulse Pulse Pulse Resp BP Pulse Ox 12/03/22 15:55 36.5 C 75 16 93/60 L 96 12/03/22 12:25 36.7 C 76 18 99/69 L 90 12/03/22 10:03 75 O2 Del Method 12/03/22 15:55 Room Air 12/03/22 12:25 Room Air 12/03/22 10:03 Diagnostic Findings [facility] [address] [place] [address] / Director: Don Williamson M.D. Clinical Laboratory Report Name: STANISLAW ALCANTAR Acct: [id number] [place]: [place] 1965 [facility] [place] 12/02/22 Age: 57 Sex: M Dis Date: Loc: Medical [address] [place] [address]/Bed: [facility] Spec: [id number] Collected: 12/02/22-1245 Received: 12/02/22-[address]: Bruno Zarco M.D. Source: Leg,Right OV Order: Ordered: Surf Wnd Cul/Sm Procedure Result Verified Site Gram Stain Final 12/02/22-1351 Gram Stain Result Moderate WBCs Seen Many Gram Positive Cocci Moderate Gram Negative Bacilli Surface Wound Culture Preliminary 12/03/22-1227 Organism 1 Gram negative bacilli Quantity Moderate Sens Sensitivities to Follow +MixWound Plus Low Counts of Probable Skin Abbi Organism 2 Gram negative bacilli#2 Quantity Moderate Sens Sensitivities to Follow
[2022-12-04] MEDS: HYDROcodone/ACETAMINOPHEN 10/325 TAB PO PRN ×2 (01:43→19:48)
[2022-12-04] MEDS: CEFEPIME 2,000 MG in SYRINGE 0 ML IV SCH ×3 (04:02→20:04)
[2022-12-04] MEDS: LEVOTHYROXINE SODIUM 88 MCG TABLET PO SCH (04:03)
[2022-12-04] MEDS: GABAPENTIN 300 MG CAP PO SCH ×3 (08:04→20:09)
[2022-12-04] MEDS: ASPIRIN 81 MG ECTAB PO SCH (08:04)
[2022-12-04] MEDS: MAGNESIUM OXIDE 400 MG TAB PO SCH (08:04)
[2022-12-04] MEDS: PANTOprazole 40 MG TAB PO SCH (08:04)
[2022-12-04] MEDS: METOPROLOL SUCC 50MG EXT REL TAB PO SCH ×2 (08:05→20:05)
[2022-12-04] MEDS: FLUTICASONE/VILANTEROL 200/25MCG 14 PUFFS/INHALER INH SCH (08:06)
[2022-12-04] MEDS: FLUTICASONE PROPIONATE NA SPR 16 GM BTL NAE SCH ×2 (08:06→20:08)
[2022-12-04] MEDS: METOPROLOL SUCC 25MG EXT REL TAB PO SCH ×2 (08:07→20:05)
[2022-12-04] MEDS: HYDROmorphone INJ 0.5 MG/0.5 ML SYR IV PRN ×2 (08:16→18:05)
[2022-12-04] MEDS: POLYETHYLENE (MIRALAX) 17 GM PACK PO PRN (08:19)
[2022-12-04] MEDS: INSULIN ASPART PER UNIT CHARGE SC SCH ×4 (08:41→20:08)
[2022-12-04] MEDS: LANTUS PER UNIT CHARGE SQ SCH (08:41)
[2022-12-04 10:53] LABS: Hematocrit (blood only) 49.5 % (42.0-52.0); Hemoglobin 15.8 g/dl (14.0-18.0); Mean Corpuscular Hemoglobin 27.3 pg (25.0-34.0); Mean Corpuscular Hgb Conc 31.9 g/dL (32.0-36.0); Mean Corpuscular Volume 85.6 fL (80.0-100.0); Mean Platelet Volume 9.6 fL (9.4-12.4); Platelet Count 223 K/uL (130-400); RDW Coefficient of Variation 17.5 % (11.5-14.5); RDW Standard Deviation 52.4 fL (36.4-46.3); Red Blood Count 5.78 M/uL (4.70-6.10); White Blood Count 6.97 K/ul (4.8-10.8)
[2022-12-04 11:18] LABS: BUN Creatinine Ratio 29.7 (10-20); Calcium 9.1 mg/dl (8.6-10.3); Est GFR (African American) 48.3 ml/min; Est GFR (Non-African American) 41.7 ml/min; Magnesium 2.5 mg/dl (1.7-2.4); Phosphorus 3.3 mg/dl (2.5-4.9); Potassium 4.8 mmol/L (3.5-5.1)
[2022-12-04 11:24] LABS: INR 3.5 (0.9-1.1); Prothrombin Time 35.3 Seconds (9.0-12.0)
[2022-12-04] MEDS ORDERED: PHARMACY GLYCEMIC MGMT CONSULT PRN (12:35)
[2022-12-04] MEDS ORDERED: INSULIN HUMAN REGULAR PER UNIT 5 UNITS in SYRINGE 4.95 ML IV ONE (13:00)
[2022-12-04] MEDS ORDERED: LANTUS PER UNIT CHARGE SC ONE ×2 (13:15→21:00)
--- NOTE | 2022-12-04 13:18 | Pharmacy Report ---
Pharmacy Glycemic Short Note 2 - Date of Service December 04, 2022 - Glycemic Short BSG Results (Last 24 hours): 12/03/22 12/03/22 12/04/22 17:13 22:42 07:59 Glucose POC Glucose 124 H 184 H 281 H 12/04/22 12/04/22 10:17 12:09 Glucose 307 H* POC Glucose 293 H OUTPATIENT ANTIDIABETIC REGIMEN: * Insulin pump * Empagliflozin * Dulaglutide * HbA1c 8.9% on 12/03/22 ASSESSMENT: * 57 yo M on insulin pump as an outpatient admitted with diabetic leg infection and transitioned to basal/bolus on 12/02. Pharmacy consulted on 12/04 for hyperglycemia >300 mg/dL. Notable hypoglycemia on admission about 48 hours ago. * Past admissions (while on basal/bolus) reviewed - patient had required Lantus 55 units daily (less than current) plus a Novolog regimen of CF 10 CR 3 (tighter CR than current), although physiologic stressors that admission were lower (currently has diabetic foot infection as compared to prior admission for depression). * Will give IV bolus x1 with lunch for BSG > 300 mg/dL. K 4.8 * Will increase Lantus slightly and will attempt to start to move to once-daily AM administration to help facilitate likely transition back to insulin pump at discharge * Will tighten CHO ratio back to previous admission parameter PLAN FOR INPATIENT GLYCEMIC CONTROL: * Hold outpatient oral diabetes medications * Insulin 5 units IV x1 now * Basal insulin * Lantus 32 units BID increasing by giving 20 units now then 20-30 units tonight based on BSG. Ongoing tomorrow AM based on trend in BSG's. * Bolus insulin * NovoLog per scale ACHS or Q6hrs while NPO * Goal Range: Low 110 mg/dL - High 140 mg/dL * Correction Factor: 10 mg/dL/unit * Nutritional / Prandial insulin per carb ratio of 1 unit per 3 grams CHO consumed
[2022-12-04] MEDS ORDERED: WARFARIN SOD 2 MG TAB PO SCH (16:00)
--- NOTE | 2022-12-04 17:08 | Hospitalist Progress Note ---
Date of Service December 04, 2022 Assessment & Plan (1) Cellulitis of right leg: Plan RLE cellulitis RLE wound with drainage Unkempt nails RLE Patient presents with worsening RLE pain for last 1 to 2 weeks [employer], has 2 open leg wounds that have been 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 Worsening cellulitis secondary to leg wounds complicated by poor circulation from known peripheral vascular disease. Patient was started on cefepime 12/02, patient has been afebrile, will continue same. Podiatry evaluated, appreciate recommendation ID consulted, await recommendation. Wound care nurse consulted. Follow admitting blood culture and wound culture. Wound culture growing Pseudomonas and Klebsiella. Peripheral vascular disease: Chronic, outpatient follow-up with vascular surgeon . Continue home aspirin, warfarin, statin. INR supratherapeutic again today we will hold today's warfarin dose., Follow INR in AM. Acute kidney injury over CKD stage III: Admitting creatinine of 1.95, baseline creatinine of 1.4. Continue to hold Aldactone, KCl, torsemide and Entresto. Creatinine getting better, follow BMP in AM. Hyperkalemia, continue to hold home KCl supplementation and Aldactone. Low potassium diet For Now. Labs in AM. Improving. Hypoglycemia: At presentation in the ED, likely secondary to poor appetite secondary to acute illness prior to arrival. Continue to monitor. Other chronic medical conditions: Continue with/resume home meds as and when able. Diabetic peripheral neuropathy associated with type 2 diabetes mellitus: A1c of 8.3 in August 17. This admission 8.9. Uncontrolled diabetes. Sliding scale insulin while inpatient. development educator consult. Diabetic pharmacy consult. NINA on CPAP: Chronic, stable. Continue CPAP at nightly Ischemic cardiomyopathy: CAD chronic, stable. Volume status is difficult to gauge 2/2 his lower extremity swelling with h/o chronic lymphedema in the setting of recent poor PO intake and dark concentrated urine. Hold torsemide, entresto, jardiance for the time being. Cont Toprol XL. Known h/o ventricular tachycardia s/p ablation 11/07/2019. ICD implanted Hypothyroidism: chronic, stable. Cont levothyroxine per home regimen. Hypertension: Home medication on hold due to renal function, continue to monitor. Atrial fibrillation: PAF, currently in afib. Rate controlled with Toprol XL per home regimen. INR is therapeutic, cont warfarin per current dosing. Morbid obesity: Lifestyle changes recommended. Chronic pain: Chronic hydrocodone/APAP alternating with Tramadol (for driving) per patient which was verified by PDMP. Cont hydrocodone q6hr PRN pain which he is currently reporting in his legs. Will minimize intravenous narcotics to avoid excessive hypotension as happened in the ER. DVT prophylaxis- on warfarin Full Code Dispo-med telemetry. PT/OT. Admission and Anticipated Discharge Date Admission Date: December 02, 2022 Subjective Patient seen and examined at bedside as a follow-up of RLE cellulitis and acute kidney injury. Patient was sitting up at the edge of the bed, on room air, NAD, reports improving RLE pain, denies fever or chills, reports eating okay and moving bowels okay. Reports feeling better today. Physical Exam Physical Exam: GENERAL: Alert and oriented x3. NAD, on RA. Obese class III HEENT: No pallor, no icterus. Pupils equal, round and reactive to light. Oral mucosa moist. NECK: No JVD, no neck masses. HEART: S1 and S2 heard. irregular rate and rhythm. No murmur, no gallop. RESPIRATORY SYSTEM: Normal AP diameter. No accessory muscle use. No wheezing, no crackles. ABDOMEN: Soft, bowel sounds present, nontender, no distention. CENTRAL NERVOUS SYSTEM: No facial droop. Speech is clear. Obeys simple commands. Moves extremities. EXTREMITIES: Left below-knee amputation noted with prosthesis. Right great toe partial amputation noted. RLE with erythema/swelling/tenderness/warmth involving foot and lower to mid third of the leg -->> about the same. Chronic skin changes noted RLE. Results & Data Results & Data Vital Signs (Past 12 Hours) Vital Signs Temp Pulse Pulse Resp BP Pulse Ox O2 Del Method 12/04/22 16:19 36.8 C 73 18 99/65 L 94 Room Air 12/04/22 14:46 72 12/04/22 13:39 36.7 C 91 H 17 105/72 92 Room Air 12/04/22 09:59 Room Air 12/04/22 08:52 74 12/04/22 08:02 36.5 C 75 18 131/86 95 Room Air
[2022-12-04] MEDS: ATORVASTATIN 40 MG TAB PO SCH (20:09)
--- NOTE | 2022-12-04 21:31 | Orthopedic Progress Note ---
Date of Service December 04, 2022 Assessment & Plan (1) Leg wound, right: Plan: Patient seen, evaluated, and treated. Reviewed Final wound culture sensitivities. Right leg wounds cleansed with Betadine followed by saline. Application of Adaptic, ABD, compression smita wrap. Will continue to follow while Patient in house. Thank you for allowing me to participate in the care of this Patient. (2) Cellulitis of right leg: (3) PVD (peripheral vascular disease): Admission and Anticipated Discharge Date Admission Date: December 02, 2022 Subjective Patient seen at bedside resting comfortably. He has no complaints. Review of Systems Review of Systems: All systems reviewed & are unremarkable except as noted in Subjective Physical Exam Constitutional: + morbidly obese, cooperative and comfortable Eyes: normal visual smith by confrontation Neck: normal visual inspection Respiratory: normal respiratory effort Cardiovascular: Rate/Rhythm: regular rate and regular rhythm Musculoskeletal: Extremities: + amputation noted (Left BKA) and + lower extremity abnormal to inspection (hyperpigmentation hyperkeratosis hyperplasia with papillomatosis & fibrosis) Skin: + ulcer (Right lateral leg full thickness ulcers) and + erythema (Right lower extremity) Neurologic: moves all extremities (Absent epicritic sensation) Psychiatric: Orientation: alert and oriented x 3 Lymphatic: + lymphedema (Atrophic changes noted to skin secondary to lymphedema) Results & Data Vital Signs (Past 12 Hours) Vital Signs Temp Pulse Pulse Resp BP Pulse Ox O2 Del Method 12/04/22 19:00 36.6 C 74 20 108/70 93 Room Air 12/04/22 16:19 36.8 C 73 18 99/65 L 94 Room Air 12/04/22 14:46 72 12/04/22 13:39 36.7 C 91 H 17 105/72 92 Room Air 12/04/22 09:59 Room Air Diagnostic Findings [address] [place] [address] / Director: Don Williamson M.D. Clinical Laboratory Report Name: STANISLAW ALCANTAR JR Acct: [id number] Status: ADM [place] : 1965 [facility] [place] Date: 12/02/22 Age: 57 Sex: M Dis Date: Loc: [address]/Bed: [facility] Spec: [id number] Collected: 12/02/22 Received: 12/02/22-[address]: Bruno Zarco M.D. Source: Leg,Right OV Order: Ordered: Surf Wnd Cul/Sm Procedure Result Verified Site Gram Stain Final 12/02/22-1351 Gram Stain Result Moderate WBCs Seen Many Gram Positive Cocci Moderate Gram Negative Bacilli Surface Wound Culture Final 12/04/22-1013 Organism 1 Pseudomonas aeruginosa Quantity Moderate Sens Sensitivities to Follow +MixWound Plus Low Counts of Probable Skin Abbi Organism 2 Klebsiella pneumoniae Quantity Moderate Sens Sensitivities to Follow P aerugino Kleb pneum RX M.I.C. RX M.I.C. --- --------- --- --------- Amox/Clav S <=8/4 Amp/Sul S <=8/4 Cefazolin S <=2 Cefepime S <=2 S <=2 Ceftazidime S 4 Ceftriaxone S <=1 Ciprofloxacin S <=0.25 S <=0.25 Ertapenem S <=0.5 Gentamicin S <=4 S <=4 Levofloxacin S <=0.5 S <=0.5 Meropenem S <=1 S <=1 Tobramycin S <=4 S <=4 Trimeth/Sulfa S <=2/38 Pip/Tazo S <=16 S <=16 S = SENSITIVE I = INTERMEDIATE R = RESISTANT
[2022-12-05] MEDS: HYDROmorphone INJ 0.5 MG/0.5 ML SYR IV PRN ×2 (00:43→08:56)
[2022-12-05] MEDS ORDERED: INSULIN ASPART PER UNIT CHARGE SC ONE (02:00)
[2022-12-05] MEDS: HYDROcodone/ACETAMINOPHEN 10/325 TAB PO PRN ×3 (05:28→19:22)
[2022-12-05] MEDS: LEVOTHYROXINE SODIUM 88 MCG TABLET PO SCH (05:28)
[2022-12-05] MEDS: CEFEPIME 2,000 MG in SYRINGE 0 ML IV SCH (05:28)
[2022-12-05 07:21] LABS: Hematocrit (blood only) 45.4 % (42.0-52.0); Hemoglobin 14.6 g/dl (14.0-18.0); Mean Corpuscular Hemoglobin 27.7 pg (25.0-34.0); Mean Corpuscular Hgb Conc 32.2 g/dL (32.0-36.0); Mean Corpuscular Volume 86.1 fL (80.0-100.0); Mean Platelet Volume 9.6 fL (9.4-12.4); Platelet Count 247 K/uL (130-400); RDW Coefficient of Variation 16.6 % (11.5-14.5); RDW Standard Deviation 51.9 fL (36.4-46.3); Red Blood Count 5.27 M/uL (4.70-6.10); White Blood Count 8.46 K/ul (4.8-10.8)
[2022-12-05 07:37] LABS: BUN Creatinine Ratio 30.1 (10-20); Calcium 9.1 mg/dl (8.6-10.3); Creatinine Clr Calc Pharmacy 84.8 ml/min; Est GFR (African American) 52.7 ml/min; Est GFR (Non-African American) 45.4 ml/min; Potassium 4.7 mmol/L (3.5-5.1)
[2022-12-05 07:47] LABS: INR 2.8 (0.9-1.1); Prothrombin Time 28.6 Seconds (9.0-12.0)
[2022-12-05] MEDS: ASPIRIN 81 MG ECTAB PO SCH (09:18)
[2022-12-05] MEDS: GABAPENTIN 300 MG CAP PO SCH ×3 (09:19→20:47)
[2022-12-05] MEDS: MAGNESIUM OXIDE 400 MG TAB PO SCH (09:20)
[2022-12-05] MEDS: PANTOprazole 40 MG TAB PO SCH (09:21)
[2022-12-05] MEDS: METOPROLOL SUCC 50MG EXT REL TAB PO SCH ×2 (09:28→20:46)
[2022-12-05] MEDS: METOPROLOL SUCC 25MG EXT REL TAB PO SCH ×2 (09:29→20:46)
[2022-12-05] MEDS: FLUTICASONE/VILANTEROL 200/25MCG 14 PUFFS/INHALER INH SCH (09:30)
[2022-12-05] MEDS: FLUTICASONE PROPIONATE NA SPR 16 GM BTL NAE SCH ×2 (09:30→20:48)
[2022-12-05] MEDS: INSULIN ASPART PER UNIT CHARGE SC SCH ×4 (09:52→20:50)
[2022-12-05] MEDS: CIPROFLOXACIN 500 MG TAB PO SCH ×2 (11:02→20:47)
[2022-12-05] MEDS: ADVANCED PROBIOTIC 1250 MG CAPSULE PO SCH (11:02)
[2022-12-05] MEDS ORDERED: LANTUS PER UNIT CHARGE SC SCH ×2 (12:00→21:00)
[2022-12-05] MEDS ORDERED: SPIRONOLACTONE 25 MG TAB PO ONE (12:12)
--- NOTE | 2022-12-05 14:26 | Pharmacy Report ---
Pharmacy Glycemic Short Note 2 - Date of Service December 05, 2022 - Glycemic Short BSG Results (Last 24 hours): 12/04/22 12/04/22 12/05/22 17:18 19:41 06:43 Glucose 164 H POC Glucose 91 99 12/05/22 12/05/22 07:55 11:30 Glucose POC Glucose 175 H 280 H OUTPATIENT ANTIDIABETIC REGIMEN: * Insulin pump * Empagliflozin * Dulaglutide * HbA1c 8.9% on 12/03/22 ASSESSMENT: 12/05/22: * Patient received total 157 units of insulin yesterday; 72 units basal and 85 units bolus * BSGs yesterday were 252-287-98-99 mg/dl. Fasting BSG was 164 mg/dl today. * Since the plan is to move basal insulin to once daily AM administration to facilitate transition to pump at discharge, 50 units of basal insulin was given at noon today. Additionally 10 units of basal ordered for HS. Possibly basal 60 units could be given in the AM tomorrow. * Since BSGs trended down below 100 mg/dl yesterday evening, Novolog carb ratio loosened slightly with lunch today. 12/04/22: * 57 yo M on insulin pump as an outpatient admitted with diabetic leg infection and transitioned to basal/bolus on 12/02. Pharmacy consulted on 12/04 for hyperglycemia >300 mg/dL. Notable hypoglycemia on admission about 48 hours ago. * Past admissions (while on basal/bolus) reviewed - patient had required Lantus 55 units daily (less than current) plus a Novolog regimen of CF 10 CR 3 (tighter CR than current), although physiologic stressors that admission were lower (currently has diabetic foot infection as compared to prior admission for depression). * Will give IV bolus x1 with lunch for BSG > 300 mg/dL. K 4.8 * Will increase Lantus slightly and will attempt to start to move to once-daily AM administration to help facilitate likely transition back to insulin pump at discharge * Will tighten CHO ratio back to previous admission parameter PLAN FOR INPATIENT GLYCEMIC CONTROL: * Hold outpatient oral diabetes medications * Basal insulin * Lantus 50 units SC x1 at noon * Lantus 10 units SC x1 at HS * Reassess basal dosing tomorrow to possibly give entire dose in AM * Bolus insulin * NovoLog per scale ACHS or Q6hrs while NPO * Goal Range: Low 110 mg/dL - High 140 mg/dL * Correction Factor: 10 mg/dL/unit * Nutritional / Prandial insulin per carb ratio of 1 unit per 4 grams CHO consumed
--- NOTE | 2022-12-05 15:39 | Hospitalist Progress Note ---
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 Worsening cellulitis secondary to leg wounds complicated by poor circulation from known peripheral vascular disease. Patient was started on cefepime 12/02, patient has been afebrile, ID evaled ---> cipro from 12/05. Podiatry evaluated, appreciate recommendation ID consulted, recommends cipro PO and monitoring in hospital for improvement of cellulitis on cipro. RLE cellulitis doesn't look much improved, will continue to monitor, consulted vascular Sx given h/o PVD. Await recs. Follow admitting blood culture and wound culture. Wound culture growing Pseudomonas and Klebsiella. Peripheral vascular disease: Chronic, outpatient follow-up with vascular surgeon . Continue home aspirin, warfarin, statin. Resume home warfarin at reduced dose of 1 mg daily due to interaction w/ cipro, will need close f/u monitoring w/ coumadin clinic on discharge. Acute kidney injury over CKD stage III: Admitting creatinine of 1.95, baseline creatinine of 1.4. Cr trending down towards normal. Will resume aldactone and entresto. Continue to hold KCl, torsemide. Hyperkalemia, continue to hold home KCl supplementation and Aldactone. Low potassium diet For Now. Labs in AM. Improving. Hypoglycemia: At presentation in the ED, likely secondary to poor appetite secondary to acute illness prior to arrival. Continue to monitor. Other chronic medical conditions: Continue with/resume home meds as and when able. Diabetic peripheral neuropathy associated with type 2 diabetes mellitus: A1c of 8.3 in August 17. This admission 8.9. Uncontrolled diabetes. Sliding scale insulin while inpatient. certified breastfeeding educator consult. Diabetic pharmacy consult. NINA on CPAP: Chronic, stable. Continue CPAP at nightly Ischemic cardiomyopathy: CAD chronic, stable. Volume status is difficult to gauge 2/2 his lower extremity swelling with h/o chronic lymphedema in the setting of recent poor PO intake and dark concentrated urine. Hold torsemide, entresto, jardiance for the time being. Cont Toprol XL. Known h/o ventricular tachycardia s/p ablation 11/07/2019. ICD implanted Hypothyroidism: chronic, stable. Cont levothyroxine per home regimen. Hypertension: Home medication on hold due to renal function, continue to monitor. Atrial fibrillation: PAF, currently in afib. Rate controlled with Toprol XL per home regimen. INR is therapeutic, cont warfarin per current dosing. Morbid obesity: Lifestyle changes recommended. Chronic pain: Chronic hydrocodone/APAP alternating with Tramadol (for driving) per patient which was verified by PDMP. Cont hydrocodone q6hr PRN pain which he is currently reporting in his legs. Will minimize intravenous narcotics to avoid excessive hypotension as happened in the ER. DVT prophylaxis- on warfarin Full Code Dispo-med telemetry. PT/OT. Admission and Anticipated Discharge Date Admission Date: December 02, 2022 Subjective Patient seen and examined at bedside as a follow-up of RLE cellulitis and acute kidney injury. Patient was sitting up in recliner chair, on room air, NAD, clearly upset mostly because he is on dietary restriction w/ CC2 diet. 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 Hence diet changed to regular. Pt does understand that it will put him on risk of uncontrolled blood sugar and electrolytes level causing poor wound healing and risk of arrhythmia respectively. Reports improving RLE pain, denies fever or chills, reports he has chronically erythematous RLE and doesn't feel it is any different. Physical Exam Physical Exam: GENERAL: Alert and oriented x3. NAD, on RA. Obese class III HEENT: No pallor, no icterus. Pupils equal, round and reactive to light. Oral mucosa moist. NECK: No JVD, no neck masses. HEART: S1 and S2 heard. irregular rate and rhythm. No murmur, no gallop. RESPIRATORY SYSTEM: Normal AP diameter. No accessory muscle use. No wheezing, no crackles. ABDOMEN: Soft, bowel sounds present, nontender, no distention. CENTRAL NERVOUS SYSTEM: No facial droop. Speech is clear. Obeys simple commands. Moves extremities. EXTREMITIES: Left below-knee amputation noted with prosthesis. Right great toe partial amputation noted. RLE with erythema/swelling/tenderness/warmth involving foot and leg -->> about the same. Chronic skin changes noted RLE. RLE dressing c/d/i. Results & Data Results & Data Vital Signs (Past 12 Hours) Vital Signs Temp Pulse Resp BP Pulse Ox O2 Del Method 12/05/22 09:00 Room Air 12/05/22 09:16 80 112/76 12/05/22 11:23 36.7 C 95 H 18 100/44 L 96 Room Air 12/05/22 08:33 36.7 C 81 18 107/67 92 Room Air
[2022-12-05] MEDS ORDERED: WARFARIN SOD 1 MG TAB PO SCH (16:00)
[2022-12-05] MEDS: WARFARIN SOD 1 MG TAB PO SCH (17:07)
[2022-12-05] MEDS: VALSARTAN/SACUBITRIL 26/24MG TAB PO SCH (20:45)
[2022-12-05] MEDS: ATORVASTATIN 40 MG TAB PO SCH (20:47)
[2022-12-06] MEDS: HYDROmorphone INJ 0.5 MG/0.5 ML SYR IV PRN ×3 (00:22→20:52)
[2022-12-06] MEDS ORDERED: LORATADINE 10 MG TAB PO ONE (00:30)
[2022-12-06] MEDS ORDERED: CLOBETASOL PROPIONATE 0.05% OINT 15 GM TUBE EXT PRN (03:52)
[2022-12-06] MEDS: LEVOTHYROXINE SODIUM 88 MCG TABLET PO SCH (05:41)
--- NOTE | 2022-12-06 07:11 | Orthopedic Progress Note ---
Date of Service December 05, 2022 Assessment & Plan (1) Leg wound, right: Plan: Patient seen, evaluated, and treated. Appreciate ID rec. Right leg wounds cleansed with Betadine followed by saline. Application of Adaptic, ABD, compression smita wrap. Compression is an important part of this Patients management. Lipodermatosclerosis observed. Will continue to follow while Patient in house. Thank you for allowing me to participate in the care of this Patient. (2) Cellulitis of right leg: (3) PVD (peripheral vascular disease): Admission and Anticipated Discharge Date Admission Date: December 02, 2022 Subjective Patient seen at chair side resting comfortably. His left leg is elevated per previous discussion and request. He has no complaints. Review of Systems Review of Systems: All systems reviewed & are unremarkable except as noted in Subjective Physical Exam Constitutional: + morbidly obese, cooperative and comfortable Eyes: normal visual smith by confrontation Neck: normal visual inspection Respiratory: normal respiratory effort Cardiovascular: Rate/Rhythm: regular rate and regular rhythm Extremities: + edema (hyperpigmentation hyperkeratosis hyperplasia with papillomatosis & fibrosis) Musculoskeletal: Extremities: + amputation noted (Left BKA) and + lower extremity abnormal to inspection (hyperpigmentation hyperkeratosis hyperplasia with papillomatosis & fibrosis) Skin: + ulcer (Right lateral leg full thickness ulcers) and + erythema (Right lower extremity) Neurologic: moves all extremities (Absent epicritic sensation) Psychiatric: Orientation: alert and oriented x 3 Lymphatic: + lymphedema (Atrophic changes noted to skin secondary to lymphedema) Results & Data Vital Signs (Past 12 Hours) Vital Signs Temp Pulse Pulse Resp BP Pulse Ox O2 Del Method 12/05/22 19:57 36.7 C 72 18 138/68 91 Room Air 12/05/22 16:22 36.9 C 75 20 111/70 95 Room Air 12/05/22 15:40 78 12/05/22 11:23 36.7 C 95 H 18 100/44 L 96 Room Air Diagnostic Findings [facility] [address] [place] [address] / Director: Don Williamson M.D. Clinical Laboratory Report Name: STANISLAW ALCANTAR JR Acct: [id number] Status: ADM IN : 1965 [facility] Date: 12/02/22 Age: 57 Sex: M Dis Date: Loc: [address]/Bed: [facility] Spec: [id number] Collected: 12/02/22 Received: 12/02/[address]: Bruno Zarco M.D. Source: Leg,Right OV Order: Ordered: Surf Wnd Cul/Sm Procedure Result Verified Site Gram Stain Final 12/02/22-1351 Gram Stain Result Moderate WBCs Seen Many Gram Positive Cocci Moderate Gram Negative Bacilli Surface Wound Culture Final 12/04/22-1013 Organism 1 Pseudomonas aeruginosa Quantity Moderate Sens Sensitivities to Follow +MixWound Plus Low Counts of Probable Skin Abbi Organism 2 Klebsiella pneumoniae Quantity Moderate Sens Sensitivities to Follow P aerugino Kleb pneum RX M.I.C. RX M.I.C. --- --------- --- --------- Amox/Clav S <=8/4 Amp/Sul S <=8/4 Cefazolin S <=2 Cefepime S <=2 S <=2 Ceftazidime S 4 Ceftriaxone S <=1 Ciprofloxacin S <=0.25 S <=0.25 Ertapenem S <=0.5 Gentamicin S <=4 S <=4 Levofloxacin S <=0.5 S <=0.5 Meropenem S <=1 S <=1 Tobramycin S <=4 S <=4 Trimeth/Sulfa S <=2/38 Pip/Tazo S <=16 S <=16 S = SENSITIVE I = INTERMEDIATE R = RESISTANT
[2022-12-06 08:02] LABS: INR 2.3 (0.9-1.1); Prothrombin Time 24.1 Seconds (9.0-12.0)
[2022-12-06 08:04] LABS: Calcium 9.3 mg/dl (8.6-10.3); Magnesium 2.6 mg/dl (1.7-2.4); Potassium 4.9 mmol/L (3.5-5.1)
[2022-12-06 08:10] LABS: BUN Creatinine Ratio 32.8 (10-20); Creatinine Clr Calc Pharmacy 106.8 ml/min; Est GFR (African American) 70.5 ml/min; Est GFR (Non-African American) 60.9 ml/min; Phosphorus 2.8 mg/dl (2.5-4.9)
[2022-12-06 08:23] LABS: Hematocrit (blood only) 47.7 % (42.0-52.0); Hemoglobin 15.2 g/dl (14.0-18.0); Mean Corpuscular Hemoglobin 27.4 pg (25.0-34.0); Mean Corpuscular Hgb Conc 31.9 g/dL (32.0-36.0); Mean Corpuscular Volume 85.9 fL (80.0-100.0); Mean Platelet Volume 9.3 fL (9.4-12.4); Platelet Count 265 K/uL (130-400); RDW Coefficient of Variation 17.1 % (11.5-14.5); RDW Standard Deviation 52.2 fL (36.4-46.3); Red Blood Count 5.55 M/uL (4.70-6.10); White Blood Count 10.31 K/ul (4.8-10.8)
[2022-12-06] MEDS: HYDROcodone/ACETAMINOPHEN 10/325 TAB PO PRN ×2 (09:15→18:43)
[2022-12-06] MEDS: INSULIN ASPART PER UNIT CHARGE SC SCH ×4 (09:15→20:43)
[2022-12-06] MEDS: LANTUS PER UNIT CHARGE SC SCH (09:15)
[2022-12-06] MEDS: POLYETHYLENE (MIRALAX) 17 GM PACK PO PRN (09:16)
[2022-12-06] MEDS: FLUTICASONE/VILANTEROL 200/25MCG 14 PUFFS/INHALER INH SCH (09:17)
[2022-12-06] MEDS: ADVANCED PROBIOTIC 1250 MG CAPSULE PO SCH (09:18)
[2022-12-06] MEDS: FLUTICASONE PROPIONATE NA SPR 16 GM BTL NAE SCH ×2 (09:18→20:43)
[2022-12-06] MEDS: METOPROLOL SUCC 50MG EXT REL TAB PO SCH ×2 (09:19→20:43)
[2022-12-06] MEDS: GABAPENTIN 300 MG CAP PO SCH ×3 (09:19→20:41)
[2022-12-06] MEDS: VALSARTAN/SACUBITRIL 26/24MG TAB PO SCH ×2 (09:19→20:41)
[2022-12-06] MEDS: SPIRONOLACTONE 25 MG TAB PO SCH (09:19)
[2022-12-06] MEDS: ASPIRIN 81 MG ECTAB PO SCH (09:20)
[2022-12-06] MEDS: CIPROFLOXACIN 500 MG TAB PO SCH ×2 (09:20→20:42)
[2022-12-06] MEDS: MAGNESIUM OXIDE 400 MG TAB PO SCH (09:20)
[2022-12-06] MEDS: METOPROLOL SUCC 25MG EXT REL TAB PO SCH ×2 (09:20→20:42)
[2022-12-06] MEDS: PANTOprazole 40 MG TAB PO SCH (09:20)
[2022-12-06] MEDS: TORSEMIDE 10 MG TAB PO SCH ×2 (10:24→20:41)
[2022-12-06] MEDS ORDERED: LANTUS PER UNIT CHARGE SC SCH (12:00)
--- NOTE | 2022-12-06 15:55 | Hospitalist Progress Note ---
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 Worsening cellulitis secondary to leg wounds complicated by poor circulation from known peripheral vascular disease. Patient was started on cefepime 12/02, patient has been afebrile, ID evaled ---> cipro from 12/05. Podiatry evaluated, appreciate recommendation ID consulted, recommends cipro PO and monitoring in hospital for improvement of cellulitis on cipro. RLE cellulitis somewhat improving [would be difficult to assess due to patient reporting he has chronic redness in his RLE with chronic baseline pain], will continue to monitor, consulted vascular Sx given h/o PVD. Await recs. Follow admitting blood culture and wound culture. Wound culture growing Pseudomonas and Klebsiella. Possible discharge on Cipro tomorrow if continued improvement. Peripheral vascular disease: Chronic, outpatient follow-up with vascular surgeon . Continue home aspirin, warfarin, statin. Resume home warfarin at reduced dose of 1 mg daily due to interaction w/ cipro, will need close f/u monitoring w/ coumadin clinic on discharge. Patient has been made aware. Acute kidney injury over CKD stage III: Admitting creatinine of 1.95, baseline creatinine of 1.4. Resolved. Resume home medications. Hyperkalemia, likely secondary to KCl supplementation and Aldactone being continued at admission on the background of holding torsemide at admission. Resolved. Hypoglycemia: At presentation in the ED, likely secondary to poor appetite secondary to acute illness prior to arrival. Continue to monitor. Other chronic medical conditions: Continue with/resume home meds as and when able. Diabetic peripheral neuropathy associated with type 2 diabetes mellitus: A1c of 8.3 in August 17. This admission 8.9. Uncontrolled diabetes. Sliding scale insulin while inpatient. certified diabetes educator consult. Diabetic pharmacy consult. NINA on CPAP: Chronic, stable. Continue CPAP at nightly Ischemic cardiomyopathy: CAD chronic, stable. Volume status is difficult to gauge 2/2 his lower extremity swelling with h/o chronic lymphedema in the setting of recent poor PO intake and dark concentrated urine. Hold torsemide, entresto, jardiance for the time being. Cont Toprol XL. Known h/o ventricular tachycardia s/p ablation 11/07/2019. ICD implanted Hypothyroidism: chronic, stable. Cont levothyroxine per home regimen. Hypertension: continue home medication, fairly under control. Atrial fibrillation: PAF, currently in afib. Rate controlled with Toprol XL per home regimen. INR is therapeutic, cont warfarin per current dosing. Morbid obesity: Lifestyle changes recommended. Chronic pain: Chronic hydrocodone/APAP alternating with Tramadol (for driving) per patient which was verified by PDMP. Cont hydrocodone q6hr PRN pain which he is currently reporting in his legs. Will minimize intravenous narcotics to avoid excessive hypotension as happened in the ER. DVT prophylaxis- on warfarin Full Code Dispo-med telemetry. PT/OT. Likely DC tomorrow. Admission and Anticipated Discharge Date Admission Date: December 02, 2022 Subjective Patient seen and examined at bedside as a follow-up of RLE cellulitis and acute kidney injury. Patient was sitting up in recliner chair, on room air, NAD, denies further complaints. Reports improving RLE pain but states that he has baseline pain in his RLE, denies fever or chills, reports he has chronically erythematous RLE and doesn't feel it is any different. On exam, it appears somewhat improved with improvement in the warmth. Physical Exam Physical Exam: GENERAL: Alert and oriented x3. NAD, on RA. Obese class III HEENT: No pallor, no icterus. Pupils equal, round and reactive to light. Oral mucosa moist. NECK: No JVD, no neck masses. HEART: S1 and S2 heard. irregular rate and rhythm. No murmur, no gallop. RESPIRATORY SYSTEM: Normal AP diameter. No accessory muscle use. No wheezing, no crackles. ABDOMEN: Soft, bowel sounds present, nontender, no distention. CENTRAL NERVOUS SYSTEM: No facial droop. Speech is clear. Obeys simple commands. Moves extremities. EXTREMITIES: Left below-knee amputation noted with prosthesis. Right great toe partial amputation noted. RLE with erythema/swelling/tenderness/warmth involving foot and leg -->> improving [patient reports chronic LLE pain and erythema which makes it difficult to track improvement in cellulitis]. Chronic skin changes noted RLE. RLE dressing c/d/i. Results & Data Results & Data Vital Signs (Past 12 Hours) Vital Signs Temp Pulse Resp BP Pulse Ox O2 Del Method 12/06/22 15:24 36.6 C 57 L 20 133/78 95 Room Air 12/06/22 12:16 37.0 C 80 20 92/62 L 95 Room Air 12/06/22 08:39 36.9 C 78 20 127/83 96 Room Air
[2022-12-06] MEDS: WARFARIN SOD 1 MG TAB PO SCH (16:56)
[2022-12-06] MEDS: ATORVASTATIN 40 MG TAB PO SCH (20:42)
--- NOTE | 2022-12-06 21:37 | Orthopedic Progress Note ---
Date of Service December 06, 2022 Assessment & Plan (1) Leg wound, right: Plan: Patient seen, evaluated, and treated. Right leg wounds cleansed with Betadine followed by saline. Application of Adaptic, ABD, compression smita wrap. Compression is an important part of this Patients management. Lipodermatosclerosis observed. Will continue to follow while Patient in house. Thank you for allowing me to participate in the care of this Patient. (2) Cellulitis of right leg: (3) PVD (peripheral vascular disease): Admission and Anticipated Discharge Date Admission Date: December 02, 2022 Subjective Patient seen at chair side resting comfortably. Patient has no complaints. Review of Systems Review of Systems: All systems reviewed & are unremarkable except as noted in Subjective Physical Exam Constitutional: + morbidly obese, cooperative and comfortable Eyes: normal visual smith by confrontation Neck: normal visual inspection Respiratory: normal respiratory effort Cardiovascular: Rate/Rhythm: regular rate and regular rhythm Extremities: + edema (hyperpigmentation hyperkeratosis hyperplasia with papillomatosis & fibrosis) Musculoskeletal: Extremities: + amputation noted (Left BKA) and + lower extremity abnormal to inspection (hyperpigmentation hyperkeratosis hyperplasia with papillomatosis & fibrosis) Skin: + ulcer (Right lateral leg full thickness ulcers) and + erythema (Right lower extremity) Neurologic: moves all extremities (Absent epicritic sensation) Psychiatric: Orientation: alert and oriented x 3 Lymphatic: + lymphedema (Atrophic changes noted to skin secondary to lymphedema) Results & Data Vital Signs (Past 12 Hours) Vital Signs Temp Pulse Pulse Resp BP Pulse Ox O2 Del Method 12/06/22 18:44 36.7 C 72 20 101/62 96 Room Air 12/06/22 16:30 75 12/06/22 15:24 36.6 C 57 L 20 133/78 95 Room Air 12/06/22 12:16 37.0 C 80 20 92/62 L 95 Room Air
[2022-12-07] MEDS: HYDROcodone/ACETAMINOPHEN 10/325 TAB PO PRN ×3 (00:44→16:08)
[2022-12-07] MEDS: LEVOTHYROXINE SODIUM 88 MCG TABLET PO SCH (06:11)
[2022-12-07] MEDS: GABAPENTIN 300 MG CAP PO SCH ×2 (08:40→13:02)
[2022-12-07] MEDS: FLUTICASONE PROPIONATE NA SPR 16 GM BTL NAE SCH (08:40)
[2022-12-07] MEDS: FLUTICASONE/VILANTEROL 200/25MCG 14 PUFFS/INHALER INH SCH (08:40)
[2022-12-07] MEDS: PANTOprazole 40 MG TAB PO SCH (08:41)
[2022-12-07] MEDS: SPIRONOLACTONE 25 MG TAB PO SCH (08:41)
[2022-12-07] MEDS: VALSARTAN/SACUBITRIL 26/24MG TAB PO SCH (08:41)
[2022-12-07] MEDS: TORSEMIDE 10 MG TAB PO SCH (08:41)
[2022-12-07] MEDS: ASPIRIN 81 MG ECTAB PO SCH (08:41)
[2022-12-07] MEDS: MAGNESIUM OXIDE 400 MG TAB PO SCH (08:41)
[2022-12-07] MEDS: METOPROLOL SUCC 50MG EXT REL TAB PO SCH (08:42)
[2022-12-07] MEDS: ADVANCED PROBIOTIC 1250 MG CAPSULE PO SCH (08:42)
[2022-12-07] MEDS: CIPROFLOXACIN 500 MG TAB PO SCH ×2 (08:42→16:09)
[2022-12-07] MEDS: METOPROLOL SUCC 25MG EXT REL TAB PO SCH (08:42)
[2022-12-07] MEDS: INSULIN ASPART PER UNIT CHARGE SC SCH ×3 (08:44→17:40)
[2022-12-07] MEDS: POLYETHYLENE (MIRALAX) 17 GM PACK PO PRN (08:50)
[2022-12-07] MEDS: LANTUS PER UNIT CHARGE SC SCH (08:50)
[2022-12-07 09:10] LABS: Hematocrit (blood only) 46.9 % (42.0-52.0); Hemoglobin 15.1 g/dl (14.0-18.0); Mean Corpuscular Hemoglobin 27.4 pg (25.0-34.0); Mean Corpuscular Hgb Conc 32.2 g/dL (32.0-36.0); Mean Corpuscular Volume 85.1 fL (80.0-100.0); Mean Platelet Volume 9.4 fL (9.4-12.4); Platelet Count 320 K/uL (130-400); RDW Coefficient of Variation 17.2 % (11.5-14.5); RDW Standard Deviation 52.7 fL (36.4-46.3); Red Blood Count 5.51 M/uL (4.70-6.10); White Blood Count 9.06 K/ul (4.8-10.8)
[2022-12-07 09:39] LABS: Prothrombin Time 21.4 Seconds (9.0-12.0)
[2022-12-07 09:47] LABS: Calcium 9.5 mg/dl (8.6-10.3); Magnesium 2.4 mg/dl (1.7-2.4); Potassium 4.8 mmol/L (3.5-5.1)
[2022-12-07 09:53] LABS: BUN Creatinine Ratio 31.1 (10-20); Creatinine Clr Calc Pharmacy 92.8 ml/min; Est GFR (African American) 59.2 ml/min; Est GFR (Non-African American) 51.1 ml/min; Phosphorus 3.4 mg/dl (2.5-4.9)
--- NOTE | 2022-12-07 12:49 | Discharge Summary ---
Date of Service December 07, 2022 Admission HPI Per Admitting Provider 57-year-old morbidly obese diabetic man presents with worsening right leg pain for the last 1 to 2 weeks. He has 2 open leg wounds on his right lower leg that have been worsening despite treatment at the wound care clinic locally. He has known peripheral vascular disease and has significant cellulitis today. He reports pain in his leg nd in his neck he reports 2/2 feeling unwell. He is not septic. Denies fevers but reports intermittent chills. He did start doxycycline yesterday after speaking with his doctor but they were unable to see him. He does not report any new trauma to his leg. He has a known left BKA secondary to history of osteomyelitis in the past. Hypoglycemic in the ER today with glucose of 69 and he reports he is hungry. Patient does report that per wound care nurse the wound had a foul odor a couple days ago. Admission Exam Per Admitting Provider CONSTITUTIONAL: morbid obesity, vitals as above, NAD EYES: normal conjunctivae, no scleral icterus ENT: external ear and nose normal NECK: trachea midline RESPIRATORY: clear to auscultation bilaterally, no crackles, rales or wheezes, normal respiratory effort CARDIOVASCULAR: irregular rate and rhythm, S1 and 2 heard without murmurs, gallops or rubs, no JVD, LE swelling without pitting edema. CHEST: inspection of chest was normal GASTROINTESTINAL: soft, nontender ND but protuberant, no guarding MUSCULOSKELETAL: strength 5/5 throughout, head is normocephalic and atraumatic, residual limb with prosthetic in place on the left leg. SKIN: warm and dry, right lower extremity is significantly swollen with a purplish color throughout most of the lower extremity and proximal to the right knee. There is redness extending up into the right medial thigh. There are 2 small open wounds to the right lower leg 1 on the anterior 1 on the posterior side. There is minimal drainage coming from this. Per ER doctor the drainage was a greenish blue-color and had a foul odor when the dressing was originally taken off. There is a partial amputation of the right big toe and unkempt nails. Right leg is warm and well-perfused. NEUROLOGIC: CN 2-12 grossly intact, no sensory deficit, normal cognition, normal speech, no tremor PSYCHIATRIC: alert cooperative and oriented to person, place and time. Euthymic mood, makes good eye contact, language grossly intact, recent and remote memory grossly intact. Principal Diagnosis RLE cellulitis History of peripheral vascular disease Acute kidney injury over CKD stage III Discharge Exam GENERAL: Alert and oriented x3. NAD, on RA. Obese class III HEENT: No pallor, no icterus. Pupils equal, round and reactive to light. Oral mucosa moist. NECK: No JVD, no neck masses. HEART: S1 and S2 heard. irregular rate and rhythm. No murmur, no gallop. RESPIRATORY SYSTEM: Normal AP diameter. No accessory muscle use. No wheezing, no crackles. ABDOMEN: Soft, bowel sounds present, nontender, no distention. CENTRAL NERVOUS SYSTEM: No facial droop. Speech is clear. Obeys simple comma nds. Moves extremities. EXTREMITIES: Left below-knee amputation noted with prosthesis. Right great toe partial amputation noted. RLE with erythema/swelling/tenderness/warmth involving foot and leg -->> warm and tenderness has improved [patient reports chronic LLE pain and erythema which makes it difficult to track improvement in cellulitis]. Chronic skin changes noted RLE. RLE dressing c/d/i. 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 Worsening cellulitis secondary to leg wounds complicated by poor circulation from known peripheral vascular disease. Patient was started on cefepime 12/02, patient has been afebrile, ID evaled ---> cipro from 12/05. Podiatry evaluated, appreciate recommendation ID consulted, recommends cipro PO and monitoring in hospital for improvement of cellulitis on cipro. --> Pt's erythema and tenderness has improved ---> pt will be discharged on Cipro 500 mg bid for 12 more days to complete the course. Pt reports improvement in his pain. Erythema clearance difficult to assess due to patient reporting he has chronic redness in his RLE with chronic baseline pain], consulted vascular Sxgiven h/o PVD. Pt advised to follow up with them as OP, pt voiced understanding. Wound culture growing Pseudomonas and Klebsiella. Pt on cipro per ID recs. Peripheral vascular disease:Chronic,outpatient follow-up with vascular surgeon . Continue home aspirin, warfarin, statin. Resume home warfarinat reduced dose of 1 mg dailydue to interaction w/ cipro, will need close f/umonitoring w/ coumadin clinic on discharge. Patient has been made aware. Acute kidney injury over CKD stage III:Admitting creatinine of 1.95, baseline creatinine of 1.4. Resolved. Resume home medications. Hyperkalemia, likely secondary to KCl supplementation and Aldactone being continued at admission on top of CHATO/CKD (on the background of holding torsemide at admission). Resolved. Hypoglycemia:At presentation in the ED, likely secondary to poor appetite secondary to acute illness prior to arrival. Continue to monitor. Other chronic medical conditions:Continue with/resume home meds as and when able. Diabetic peripheral neuropathy associated with type 2 diabetes mellitus: A1c of 8.3 in August 17. This admission 8.9. Uncontrolled diabetes. Sliding scale insulin while inpatient. clinical unit educator consult. Diabetic pharmacy consult. NINA on CPAP: Chronic, stable. Continue CPAP at nightly Ischemic cardiomyopathy: CAD chronic, stable. Volume status is difficult to gauge 2/2 his lower extremity swelling with h/o chronic lymphedema in the setting of recent poor PO intake and dark concentrated urine. Hold torsemide, entresto, jardiance for the time being. Cont Toprol XL. Known h/o ventricular tachycardia s/p ablation 11/07/2019. ICD implanted Hypothyroidism: chronic, stable. Cont levothyroxine per home regimen. Hypertension: continue home medication, fairly under control. Atrial fibrillation: PAF, currently in afib. Rate controlled with Toprol XL per home regimen. INR is therapeutic, cont warfarin per current dosing. Morbid obesity: Lifestyle changes recommended. Chronic pain: Chronic hydrocodone/APAP alternating with Tramadol (for driving) per patient which was verified by PDMP. Cont hydrocodone q6hr PRN pain which he is currently reporting in his legs. Will minimize intravenous narcotics to avoid excessive hypotension as happened in the ER. DVT prophylaxis- on warfarin Full Code Dispo-med telemetry. PT/OT. Patient being discharged home with following instructions at the point of dis charge: Follow-up with your primary care physician within a week time and likely you will need labs CBC/CMP/magnesium/phosphorus. Podiatry and infectious disease doctor evaluated you for your right leg cellulitis. You will need to maintain follow-up with home health and wound clinic. You are being discharged on oral antibiotic to complete the course for your right leg infection. Recommend to follow-up with vascular surgery in 2 to 4 weeks time upon discharge. Take your probiotics while you are on antibiotic. Because you are on antibiotic, your warfarin dose has been decreased to 1 mg da shaq. You will need close follow-up with Coumadin clinic like every 3 to 4 days for 2 to 3 weeks to make sure your Coumadin numbers are therapeutic. Once you are off antibiotic, your need for Coumadin dose will go up again, coordinate with the Coumadin clinic for dose adjustment of your Coumadin. Recommend establish with diabetic clinic and follow-up closely for long-term management of your diabetes. Coordinate with your PCP office for setting up with diabetic clinic. Take your medications as prescribed. Please make sure that you are able to get your medications today by calling your pharmacy before you leave the hospital so that your treatment continuity is not broken. Home Health Attestation I certify that this patient is under my care and that I, or a physicians primary teaching assistant working with me, had a face to-face encounter that meets the home health urzu-cu-ywua encounter requirements with this patient. The encounter with the patient was in whole, or in part, for the following medical condition, which is the primary reason for home health care (list medical condition): I certify that, based on my findings, the following services are medically necessary home health services: My clinical findings support the need for the above services because: Further, I certify that my clinical findings support that this patient is homebound (i.e. absences from home require considerable and taxing effort and are for medical reasons or uatsdin services or infrequently or of short duration when for other reasons) because: Certification for Home Health Services: Based on the above findings, I certify that this patient is confined to the home and needs intermittent chcf care, physical therapy and/or speech therapy or continues to need occupational therapy. The patient is under my care, and I have initiated the establishment of the plan of care. This patient will be followed by a physician who will periodically review the plan of care. Total Time Total Time Spent Total Time Spent (In Minutes): 45 Discharge Plan Discharge Items Patient Disposition: Home - Home Health Services Reason For Visit: DIABETIC LEG INFECTION Discharge Diagnosis: RLE cellulitis History of peripheral vascular disease Acute kidney injury over CKD stage III Activity: As commented below Activity Comment: Elevate your right lower leg while sitting or sleeping. Non-emergency contact: Primary Care Provider Call non-emergency contact if: you have any medication questions, your symptoms worsen and your temperature is above 101 Follow-up/Referrals: Sherry Maya DO [Primary Care Provider] - (Date & Time 12/24/2022 8:30 AM Provider Sherry Maya DO Department Merged With [facility] ) Diet: Regular and Carb Count or DM1 Addtl Attending Provider Instructions: Follow-up with your primary care physician within a week time and likely you will need labs CBC/CMP/magnesium/phosphorus. Podiatry and infectious disease doctor evaluated you for your right leg cellulitis. You will need to maintain follow-up with home health and wound clinic. You are being discharged on oral antibiotic to complete the course for your right leg infection. Recommend to follow-up with vascular surgery in 2 to 4 weeks time upon discharge. Take your probiotics while you are on antibiotic. Because you are on antibiotic, your warfarin dose has been decreased to 1 mg daily. You will need close follow-up with Coumadin clinic like every 3 to 4 days for 2 to 3 weeks to make sure your Coumadin numbers are therapeutic. Once you are off antibiotic, your need for Coumadin dose will go up again, coordinate with the Coumadin clinic for dose adjustment of your Coumadin. Recommend establish with diabetic clinic and follow-up closely for long-term management of your diabetes. Coordinate with your PCP office for setting up with diabetic clinic. Take your medications as prescribed. Please make sure that you are able to get your medications today by calling your pharmacy before you leave the hospital so that your treatment continuity is not broken. Pending Studies at Discharge: Yes Stand-Alone Forms: My [employer], Smoking Cessation Medications and DC Order Prescriptions: New ciprofloxacin HCl 500 mg Tablet 500 mg PO BID 12 Days Qty: 24 0RF warfarin [Jantoven] 1 mg Tablet 1 mg PO DAILY@1600 Qty: 30 0RF Advanced Probiotic 625 mg (10 billion cell) Capsule 2 cap PO DAILY 14 Days Qty: 28 0RF Continued fluticasone propionate [Flonase Allergy Relief] 50 mcg/actuation spray,suspension 2 sprays INTNAS BID mometasone-formoterol [Dulera] 200-5 mcg/actuation HFA aerosol inhaler 2 puffs INH BID omeprazole 20 mg capsule,delayed release(DR/EC) 20 mg PO QAM insulin aspart U-100 [Novolog U-100 Insulin aspart] 100 unit/mL solution 240 unit continuous subcutaneous infusion DAILY Qty: 216 3RF Patient Comments: insulin pump Trulicity 1.5 mg/0.5 mL pen injector 1.5 mg subcut Q7D 30 Days Qty: 2.5 5RF Rx Instructions: Tuesdays Entresto 24-26 mg tablet 1 tab PO BID empagliflozin 25 mg tablet 25 mg PO DAILY Qty: 90 3RF tramadol 50 mg tablet 50 mg PO BID PRN (Reason: Pain) gabapentin 300 mg Capsule 300 mg PO TID ergocalciferol (vitamin D2) 2,500 unit Capsule 50,000 unit PO WK Rx Instructions: saturdays albuterol sulfate [Ventolin HFA] 90 mcg/actuation Hfa Aerosol Inhaler 2 puff INHALATION QID PRN (Reason: SHORT OF BREATH) clobetasol 0.05 % cream 1 applic TOPICAL BID PRN (Reason: dry skin) aspirin 81 mg Tablet,Delayed Release (Dr/Ec) 81 mg PO QAM magnesium oxide 400 mg magnesium Tablet 400 mg PO DAILY potassium chloride 20 mEq tablet extended release 20 meq PO DAILY Qty: 30 0RF metoprolol succinate 50 mg tablet extended release 24 hr 50 mg PO BID Rx Instructions: total 75mg bid metoprolol succinate 25 mg tablet extended release 24 hr 25 mg PO BID Rx Instructions: total 75mg bid spironolactone 25 mg Tablet 25 mg PO DAILY levothyroxine 88 mcg tablet 88 mcg PO DAILY atorvastatin 80 mg tablet 80 mg PO HS Qty: 0 0RF Rx Instructions: Do not take it as long as you are on Daptomycin torsemide 20 mg tablet See Rx Instructions .ROUTE .COMPLEX Rx Instructions: 2 in AM and 1 tab around 1600 Changed hydrocodone-acetaminophen 10-325 mg tablet 1 tab PO Q6H PRN (Reason: pain (scale score 7-10)) Qty: 20 0RF Discontinued warfarin 4 mg Tablet See Rx Instructions .ROUTE .COMPLEX Rx Instructions: per pt 2 mg orally on , thu,and thu warfarin 1 mg tablet 1 mg PO USEASDIRECTD Rx Instructions: per pt thursday and thursday 1 mg UD BY [facility]IC Discharge Orders: Discharge Order (Routine); Ordered 12/07/22 Ordered By: Sebastian Wallace Admission Data Admit Date/Time: 12/02/22 17:06 Attending Provider: Sebastian Wallace Admit Provider: Katharina Flores Primary Care Provider: Sherry Maya Other Providers: Katharina Flores ; Kirk Torres ; Adolph Canales ; Alberto Payne I. ; Husam Perkins II ; Sherry Prakash ; Declan Reynoso ; Ricardo Lloyd ; Jerald Singh ; Heron Bansal ; Nate Gonzalez
[2022-12-07] MEDS: WARFARIN SOD 1 MG TAB PO SCH (16:09)
== END 2022-12-07 18:00 | disposition home health service (06) | DRG 638 ==
LOC: ED 11:48 → 2W 17:06 → SUATTDRO 17:06 → 2W 18:37

== ENCOUNTER 2023-05-18 14:33 | Inpatient (IN) ==
--- NOTE | 2023-05-18 15:08 | Emergency Department Note ---
Impression & Plan 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, Chronic pain, Peripheral arterial disease ED Provider Note Provider: Bruno Zarco MD DATE OF SERVICE: 05/18/2023 CHIEF COMPLAINT: Foot wound infection HISTORY OF PRESENT ILLNESS: Patient is a 57-year-old gentleman history of PVD, type 2 diabetes, CKD and CAD on warfarin presenting here via ambulance from his home. Has follow-up with wound care as well as podiatry. Prior left BKA. Right foot with prior infection. Home health comes 3 times a week to help dressing change. Nurse today came in with concern for pus coming out of his wound of his right foot as well as possible worsening infection. Patient denies fever. Does state he may have bumped his foot a little bit as far as the great toe transferring last night but denies any significant trauma. States he does have a little scrape on his remaining great toe in the second toe from this. Does have pain in the foot but this is chronic. Blood sugars have been okay according to patient. Had his pain medication first thing this morning. EMS states his oxygen level was around 90% and they put him on Lovenox and is not normally on this. Denies significant shortness of breath. Denies significant URI symptoms. Has been taking warfarin. PAST MEDICAL HISTORY: As noted above MEDICATIONS: Reviewed home medication list SOCIAL HISTORY: Resides at home PHYSICAL EXAM: GENERAL: alert and oriented in no acute distress on stretcher Head: normocephalic and atraumatic EYES: No injection, discharge or icterus. NECK: Trachea midline. ENT: Mucous membranes pink and moist. LUNGS: Airway patent. No retractions. Breath sounds clear HEART: Regular rate and rhythm. No chest wall tenderness ABDOMEN: Soft and non-tender, without guarding or rebound. Modestly obese with pannus present. SKIN: Acyanotic, warm, skin changes as below to the lower extremities. Does have some mild chronic skin changes to the abdominal pannus without significant crepitus or severe erythema. EXTREMITIES: Left BKA present with chronic skin changes and slight erythema. The right lower extremity however with significant swelling and erythema with a few scattered small subcentimeter areas of wound. Particular in the right foot the area of the base of the fifth metatarsal there is an approximately 2 cm defect with some exposed subcutaneous tissue but no significant drainage. No crepitus. Some tenderness. Some serous drainage from several areas of the right foot. NEUROLOGICAL: No aphasia. No facial droop or slurred speech. Following commands EK bpm atrial fibrillation. No PVC or PAC. No acute ST segment elevation or depression with a complete right bundle branch block noted. Patient's laboratory studies and imaging reviewed. Differential includes Cellulitis, abscess, MRSA infection, DVT, necrotizing fasciitis, dermatitis, drug eruption, allergic reaction, as well as other pathologies. IMPRESSION/MEDICAL DECISION MAKING: Patient unfortunately with history of diabetes, peripheral vascular disease, infections of the lower extremities with a current left BKA but would look like significant wound to the base of the right foot as well as some scattered areas of erythema and some swelling here. On Coumadin lower suspicion for VTE/DVT. Will obtain x-ray of the right foot but lower suspicion for trauma question if there may be a deeper infection such as osteomyelitis. Reviewed prior microbiology. Will empirically started on Zosyn at this time. Given his significant swelling we will avoid significant IV fluids and I do not believe the patient is septic or in septic shock. Some delay obtaining IV access requiring multiple tries. IV fentanyl was eventually administered. Laboratory studies including culture as well as surface cultures from the right foot were obtained. Inflammatory markers sent. X-ray report without evidence of osteomyelitis or fracture. Will bring into the hospital for further care. While he does not have significant leukocytosis or elevated lactate and ESR greater than 130 as noted. Lactate not elevated. CRP is additionally elevated again questioning leg infection. Hospitalist team contacted for admission. INR had to be redrawn and is pending. DIAGNOSIS: Diabetic right foot infection and wound DISPOSITION: Hospitalist will evaluate Patient was agreeable with this plan. Past Med/Surg History Medical History (Updated 05/18/23 @ 16:33 by Bruno Zarco M.D.) Depression with suicidal ideation Acute osteomyelitis of left foot Peripheral arterial disease T2DM (type 2 diabetes mellitus) CHF (congestive heart failure) Acute on chronic combined systolic (congestive) and diastolic (congestive) heart failure Diabetic ulcer of right foot Sustained ventricular tachycardia Pneumonia due to COVID-19 virus SARS-CoV-2 positive Sepsis Cellulitis of left lower leg Diabetic ulcer of left heel associated with diabetes mellitus due to underlying condition, limited to breakdown of skin Acute on chronic renal failure Acute hypoxemic respiratory failure Sleep apnea BIPAP Rectal bleeding Depression Diabetes type 2, uncontrolled Vitamin D deficiency Diabetic peripheral neuropathy associated with type 2 diabetes mellitus Deformity of foot Adams fracture Base of left fifth metatarsal, nonhealing x years Dyslipidemia Hypertension Diabetic ulcer of left foot associated with type 2 diabetes mellitus, with fat layer exposed Hx of sepsis 06/2019 Arthritis CAD (coronary artery disease) Venous stasis ulcer of right lower leg with edema of right lower leg Hypokalemia Bacteremia due to group B Streptococcus Lymphedema Sustained VT (ventricular tachycardia) GERD (gastroesophageal reflux disease) Hx of osteomyelitis Hx of myocardial infarction found on testing Asthma well controlled, 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 Cardiac defibrillator in situ 2007 with replacement 03/2020. follows with Dr. Maya. CKD (chronic kidney disease) stage 3, GFR 30-59 ml/min Morbid obesity H/O osteomyelitis History of diabetic ulcer of foot Hypothyroidism Ischemic cardiomyopathy Surgical History History of esophagogastroduodenoscopy (EGD) H/O foot surgery LEFT FOOT ULCER DEBRIDEMENT H/O cardiac radiofrequency ablation OCTOBER 2019 ([facility]) AT [facility] History of cardiac cath V. tach -- no stent. 06/2019. unsure where it was done History of sinus surgery Hx of tonsillectomy History of colonoscopy Hx of amputation of lesser toe H/O shoulder surgery left Family History Sister Family history of diabetes mellitus 2 Grandmother (Maternal) Family history of diabetes mellitus Grandfather (Maternal) Family history of diabetes mellitus Father Cancer Mother Cancer Other No family history of adverse response to anesthesia Social History Smoking Status: Never smoker Second Hand Exposure: No; Do You Dip or Chew Tobacco: No; Hx Alcohol Use: Yes Alcohol type: hard liquor Hx Substance Use: No Preferred Language: [place] African Communication Ability: Effective 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 Beliefs That Will Affect Care: None marital status: Current Living Situation: Alone current occupational status: disabled How many Children do You have: 3 Feels Safe at Home: Yes Assistive Devices: Cane, Prosthesis, Scooter/Electric Scooter and Walker Allergies Allergies Allergy/AdvReac Type Severity Reaction Status Date / Time benzonatate AdvReac Intermediate choking, Verified 05/18/23 15:49 gagging Home Meds Home Medications Medication Instructions Recorded Confirmed mometasone-formoterol HFA 200 2 puffs inhalation BID 12/21/17 05/18/23 mcg-5 mcg/actuation aerosol inhaler (Dulera) omeprazole 20 mg capsule,delayed 20 mg PO QAM 12/21/17 05/18/23 release gabapentin 300 mg capsule 300 mg PO TID 04/12/19 05/18/23 clobetasol 0.05 % topical cream 1 applic topical BID PRN dry skin 01/18/20 05/18/23 albuterol sulfate 90 mcg/actuation 2 puff inhalation QID PRN SHORT OF 05/30/20 05/18/23 aerosol inhaler (Ventolin HFA) BREATH aspirin 81 mg tablet,delayed 81 mg PO QAM 06/12/20 05/18/23 release levothyroxine 88 mcg tablet 88 mcg PO DAILY 12/13/20 05/18/23 spironolactone 25 mg tablet 25 mg PO DAILY 12/13/20 05/18/23 magnesium oxide 400 mg PO DAILY 08/08/21 05/18/23 sacubitril 24 mg-valsartan 26 mg 1 tab PO BID 09/27/21 05/18/23 tablet (Entresto) tramadol 50 mg tablet 50 mg PO Q6H PRN Pain 06/06/22 05/18/23 torsemide 20 mg tablet 20 mg PO QAM PRN Edema 12/02/22 05/18/23 acetaminophen 325 mg tablet 650 mg PO DIRECTED PRN PAIN, 05/18/23 05/18/23 (Tylenol) MILD-MODERATE ergocalciferol (vitamin D2) 1,250 1,250 mcg PO WK 05/18/23 05/18/23 mcg (50,000 unit) capsule (Vitamin D2) ferrous sulfate 325 mg (65 mg 325 mg PO BID 05/18/23 05/18/23 iron) tablet hydrocodone 5 mg-acetaminophen 325 1 tab PO Q6H PRN Pain 05/18/23 05/18/23 mg tablet loratadine 10 mg tablet (Claritin) 10 mg PO DAILY 05/18/23 05/18/23 metolazone 5 mg tablet 5 mg PO .1-2 X WK 05/18/23 05/18/23 nitroglycerin 0.4 mg sublingual 0.4 mg sublingual DIRECTED PRN 05/18/23 05/18/23 tablet (Nitrostat) Chest Pain potassium chloride 10 mEq 20 meq PO QAM 05/18/23 05/18/23 tablet,extended release(part/cryst) triamcinolone acetonide 0.1 % 1 applic topical BID 05/18/23 05/18/23 lotion warfarin 2 mg tablet See Rx Instructions .Route .COMPLEX 05/18/23 05/18/23 Previous Rx's Medication Instructions Recorded insulin aspart U-100 100 unit/mL 240 unit (2.4 mL) continuous 04/19/22 subcutaneous solution (Novolog subcutaneous infusion DAILY #216 mL U-100 Insulin aspart) empagliflozin 25 mg tablet 25 mg PO DAILY #90 tabs 03/26/23 Results & Data (ED) Vital Signs Vital Signs - 24 hr 05/18/23 14:56 05/18/23 14:56 05/18/23 15:00 Temperature 36.3 C L Temperature Source Oral Pulse Rate 101 H 96 H 89 Pulse Rate from SpO2 Sensor 83 84 Respiratory Rate 16 14 17 Blood Pressure 131/66 Blood Pressure Mean 87 Pulse Oximetry 98 97 98 Oxygen Delivery Method Room Air Sepsis Recent Fever Within 48 Hours No Sepsis New/Unexplained Change in Mental Status No Sepsis Action Taken by Nursing No Action Required 05/18/23 15:06 05/18/23 15:21 05/18/23 15:30 Temperature Temperature Source Pulse Rate 104 H 92 H Pulse Rate from SpO2 Sensor 96 H Respiratory Rate 21 Blood Pressure Blood Pressure Mean Pulse Oximetry 95 95 Oxygen Delivery Method Room Air Sepsis Recent Fever Within 48 Hours Sepsis New/Unexplained Change in Mental Status Sepsis Action Taken by Nursing 05/18/23 16:00 05/18/23 16:30 05/18/23 17:00 Temperature Temperature Source Pulse Rate 83 91 H 89 Pulse Rate from SpO2 Sensor 97 H Respiratory Rate 21 20 16 Blood Pressure Blood Pressure Mean Pulse Oximetry 94 Oxygen Delivery Method Sepsis Recent Fever Within 48 Hours Sepsis New/Unexplained Change in Mental Status Sepsis Action Taken by Nursing 05/18/23 17:17 05/18/23 17:17 05/18/23 17:30 Temperature Temperature Source Pulse Rate 87 83 Pulse Rate from SpO2 Sensor 85 87 Respiratory Rate 21 16 Blood Pressure 122/81 Blood Pressure Mean 91 Pulse Oximetry 96 99 Oxygen Delivery Method Room Air Sepsis Recent Fever Within 48 Hours Sepsis New/Unexplained Change in Mental Status Sepsis Action Taken by Nursing 05/18/23 18:10 Temperature Temperature Source Pulse Rate 93 H Pulse Rate from SpO2 Sensor Respiratory Rate Blood Pressure Blood Pressure Mean Pulse Oximetry Oxygen Delivery Method Sepsis Recent Fever Within 48 Hours Sepsis New/Unexplained Change in Mental Status Sepsis Action Taken by Nursing Laboratory Data 05/18/23 16:15 05/18/23 16:15 Lab Results 05/18/23 05/18/23 Range/Units 16:15 16:39 WBC 7.95 (4.8-10.8) K/ul RBC 4.36 L (4.70-6.10) M/uL Hgb 12.8 L (14.0-18.0) g/dl Hct 39.8 L (42.0-52.0) % MCV 91.3 (80.0-100.0) fL MCH 29.4 (25.0-34.0) pg MCHC 32.2 (32.0-36.0) g/dL RDW Std Deviation 54.2 H (36.4-46.3) fL RDW Coeff of Мария 16.3 H (11.5-14.5) % Plt Count 317 (130-400) K/uL MPV 9.3 L (9.4-12.4) fL Immature Gran % (Auto) 0.5 % Neut % (Auto) 78.2 % Lymph % (Auto) 8.7 % Franklin % (Auto) 9.8 % Eos % (Auto) 1.9 % Baso % (Auto) 0.9 % Neut # (Auto) 6.22 (1.40-6.50) K/uL Lymph # (Auto) 0.69 L (1.20-3.40) K/uL Franklin # (Auto) 0.78 H (0.11-0.59) K/uL Eos # (Auto) 0.15 (0.00-0.50) K/uL Baso # (Auto) 0.07 (0.00-0.20) K/uL Immature Gran # (Auto) 0.04 (0.01-0.20) K/uL ESR > 130 H (0-20) mm/hr PT Cancelled INR Cancelled Sodium 135 L (136-145) mmol/L Potassium 4.6 (3.5-5.1) mmol/L Chloride 101 (98-107) mmol/L Carbon Dioxide 27 (21-32) mmol/L Anion Gap 7 (3-11) BUN 23 (6-23) mg/dl Creatinine 1.13 (0.6-1.4) mg/dl Est Cr Clr Drug Dosing 125.8 ml/min Est GFR ( Amer) 82.0 ml/min Est GFR (Non-Af Amer) 70.8 ml/min BUN/Creatinine Ratio 20.4 H (10-20) Glucose 104 H (70-99(Fasting)) mg/dl Lactate 1.4 (0.4-2.0) mmol/L Calcium 9.1 (8.6-10.3) mg/dl Total Bilirubin 2.0 H (0.2-1.0) mg/dl AST 24 (13-39) U/L ALT 10 (7-52) U/L Alkaline Phosphatase 144 H (34-104) U/L C-Reactive Protein 8.64 H (0-0.5) mg/dl Total Protein 8.4 H (6.0-8.3) gm/dl Albumin 3.3 L (3.4-5.0) gm/dl Globulin 5.1 H (2.5-4.0) gm/dl Albumin/Globulin Ratio 0.6 L (0.9-2) Procalcitonin Cancelled SARS-CoV-2, RNA, NAAT NEGATIVE (NEGATIVE) Administered Medications Discontinued Medications Fentanyl Citrate (Fentanyl Citrate Pf 100 Mcg/2 Ml Vial) 50 mcg IV NOW STA Stop: 05/18/23 15:09 Last Admin: 05/18/23 16:40 Dose: 50 mcg Documented By: ISMAEL Fentanyl Citrate (Fentanyl Citrate Pf 100 Mcg/2 Ml Vial) 50 mcg IV NOW STA Stop: 05/18/23 16:50 Last Admin: 05/18/23 18:05 Dose: 50 mcg Documented By: ISMAEL Imaging Data Radiologist's Impression: Foot X-Ray 05/18/23 15:05 XR foot RT 2V CLINICAL HISTORY: wound/infection sole COMPARISON: Right foot CT and right foot radiographs February 24, 2017. Right lower extremity CTA April 09, 2022. FINDINGS: There are postoperative findings consistent with amputation of the distal phalanx of the right first toe. Note is made of a linear 6 mm metallic density within the plantar aspect of the right first toe. Soft tissue gas within the plantar aspect of the right midfoot suggests a wound. No evidence for acute osteomyelitis within the right foot. No additional radiopaque foreign bodies are identified. Diffuse soft tissue swelling is present. There is no acute fracture within the right foot. IMPRESSION: 1. No acute fracture or evidence for acute osteomyelitis within the right foot. 2. Right midfoot soft tissue gas suggestive of a wound. 3. Amputation of the distal phalanx of the right first toe. 4. Linear 6 mm metallic density within the plantar aspect of the right first toe. This favors a small foreign body. ACT 112: Negative or not required by law. Electronically signed by: Devyn Flynn M.D. 05/18/2023 3:36 PM Discharge Plan Visit Data Chief Complaint: Infection ED Provider: Bruno Zarco Discharge Problem: 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, Chronic pain, Peripheral arterial disease Patient Disposition: Being Evaluated by Hospitalist Forms Stand Alone Forms: [facility] Prescriptions Prescriptions: No Action mometasone-formoterol [Dulera] 200-5 mcg/actuation HFA aerosol inhaler 2 puffs INH BID omeprazole 20 mg capsule,delayed release(DR/EC) 20 mg PO QAM insulin aspart U-100 [Novolog U-100 Insulin aspart] 100 unit/mL solution 240 unit continuous subcutaneous infusion DAILY Qty: 216 3RF Patient Comments: insulin pump Entresto 24-26 mg tablet 1 tab PO BID tramadol 50 mg tablet 50 mg PO Q6H PRN (Reason: Pain) empagliflozin 25 mg tablet 25 mg PO DAILY Qty: 90 1RF gabapentin 300 mg Capsule 300 mg PO TID albuterol sulfate [Ventolin HFA] 90 mcg/actuation Hfa Aerosol Inhaler 2 puff INHALATION QID PRN (Reason: SHORT OF BREATH) clobetasol 0.05 % cream 1 applic TOPICAL BID PRN (Reason: dry skin) aspirin 81 mg Tablet,Delayed Release (Dr/Ec) 81 mg PO QAM magnesium oxide 400 mg magnesium Tablet 400 mg PO DAILY spironolactone 25 mg Tablet 25 mg PO DAILY levothyroxine 88 mcg tablet 88 mcg PO DAILY torsemide 20 mg tablet 20 mg PO QAM PRN (Reason: Edema) Rx Instructions: OF 04/09/23--GMG acetaminophen [Tylenol] 325 mg Tablet 650 mg PO DIRECTED PRN (Reason: PAIN, MILD-MODERATE) hydrocodone-acetaminophen 5-325 mg tablet 1 tab PO Q6H PRN (Reason: Pain) metolazone 5 mg tablet 5 mg PO .1-2 X WK Rx Instructions: FOR LEG SWELLING ferrous sulfate 325 mg (65 mg iron) Tablet 325 mg PO BID warfarin 2 mg tablet See Rx Instructions .ROUTE .COMPLEX Rx Instructions: PER PT "TAKE 6 MG ON THURSDAY EVENINGS, THEN 4 MG ON ALL OTHER EVENINGS". nitroglycerin [Nitrostat] 0.4 mg Tablet, Sublingual 0.4 mg sublingual DIRECTED PRN (Reason: Chest Pain) Rx Instructions: EVERY 5 MINUTES X 3 IN 15 MINUTES. ergocalciferol (vitamin D2) [Vitamin D2] 1,250 mcg (50,000 unit) Capsule 1,250 mcg PO WK Rx Instructions: SATURDAYS triamcinolone acetonide 0.1 % Lotion 1 applic TOPICAL BID Rx Instructions: APPLY TO LOWER LEGS AND STUMP. AVOID OPEN WOUNDS. loratadine [Claritin] 10 mg Tablet 10 mg PO DAILY potassium chloride 10 mEq tablet,ER particles/crystals 20 meq PO QAM Referrals Referrals: Sherry Maya DO [Primary Care Provider] -
--- NOTE | 2023-05-18 15:38 | XRay Report ---
XR foot RT 2V CLINICAL HISTORY: wound/infection sole COMPARISON: Right foot CT and right foot radiographs February 24, 2017. Right lower extremity CTA Dece mber 2021. FINDINGS: There are postoperative findings consistent with amputation of the distal phalanx of the r ight first toe. Note is made of a linear 6 mm metallic density within the plantar aspect of the right first toe. Soft tissue gas within the plantar aspect of the right midfoot suggests a wound. No evide nce for acute osteomyelitis within the right foot. No additional radiopaque foreign bodies are identi fied. Diffuse soft tissue swelling is present. There is no acute fracture within the right foot. IMPRESSION: 1. No acute fracture or evidence for acute osteomyelitis within the right foot. 2. Right midfoot soft tissue gas suggestive of a wound. 3. Amputation of the distal phalanx of the right first toe. 4. Linear 6 mm metallic density within the plantar aspect of the right first toe. This favors a small foreign body. ACT 112: Negative or not required by law. Electronically signed by: Devyn Flynn M.D. 05/18/2023 3:36 PM
[2023-05-18 16:39] LABS: Basophils # (auto) 0.07 K/uL (0.00-0.20); Basophils % (auto) 0.9 %; Eosinophils # (auto) 0.15 K/uL (0.00-0.50); Eosinophils % (auto) 1.9 %; Hematocrit (blood only) 39.8 % (42.0-52.0); Hemoglobin 12.8 g/dl (14.0-18.0); Immature Granulocytes # (auto) 0.04 K/uL (0.01-0.20); Immature Granulocytes % (auto) 0.5 %; Lymphocytes # (auto) 0.69 K/uL (1.20-3.40); Lymphocytes % (auto) 8.7 %; Mean Corpuscular Hemoglobin 29.4 pg (25.0-34.0); Mean Corpuscular Hgb Conc 32.2 g/dL (32.0-36.0); Mean Corpuscular Volume 91.3 fL (80.0-100.0); Mean Platelet Volume 9.3 fL (9.4-12.4); Monocytes # (auto) 0.78 K/uL (0.11-0.59); Monocytes % (auto) 9.8 %; Neutrophils # (auto) 6.22 K/uL (1.40-6.50); Neutrophils % (auto) 78.2 %; Platelet Count 317 K/uL (130-400); RDW Coefficient of Variation 16.3 % (11.5-14.5); RDW Standard Deviation 54.2 fL (36.4-46.3); Red Blood Count 4.36 M/uL (4.70-6.10); White Blood Count 7.95 K/ul (4.8-10.8)
[2023-05-18] MEDS: fentaNYL citrate PF 100 MCG/2 ML VIAL IV STA ×2 (16:40→18:05)
--- NOTE | 2023-05-18 16:46 | Electrocardiogram Report ---
Test Reason : Blood Pressure : / mmHG Vent. Rate : 090 BPM Atrial Rate : 000 BPM P-R Int : 000 ms QRS Dur : 102 ms QT Int : 354 ms P-R-T Axes : 000 009 145 degrees QTc Int : 433 ms Atrial fibrillation Low voltage QRS Cannot rule out Anteroseptal infarct (cited on or before 18-MAY-2023) T wave abnormality, consider lateral ischemia Abnormal ECG When compared with ECG of 02-DEC-2022 12:58, No significant change was found Confirmed by Nader Mcpherson ([id number]) on 05/18/2023 4:45:49 PM Referred By: Confirmed By:Austin Mcpherson
[2023-05-18 16:57] LABS: Albumin Globulin Ratio 0.6 (0.9-2); Albumin Level 3.3 gm/dl (3.4-5.0); BUN Creatinine Ratio 20.4 (10-20); C Reactive Protein 8.64 mg/dl (0-0.5); Calcium 9.1 mg/dl (8.6-10.3); Creatinine Clr Calc Pharmacy 125.8 ml/min; Est GFR (Non-African American) 70.8 ml/min; Globulin 5.1 gm/dl (2.5-4.0); Potassium 4.6 mmol/L (3.5-5.1); Total Protein 8.4 gm/dl (6.0-8.3)
[2023-05-18] MEDS ORDERED: PHARMACY GLYCEMIC MGMT CONSULT PRN (17:50)
--- NOTE | 2023-05-18 18:02 | History & Physical Report ---
Date of Service May 18, 2023 Assessment & Plan (1) Leg wound, right: Plan: Chronic leg wounds with history of osteomyelitis Complaining of more pain and swelling of the right leg with some drainage from the right shoulder wounds X-ray did not show any osteomyelitis and the patient remains afebrile without any elevation of the white count but CRP is elevated at 8.64 Cultures were taken and he was started with intravenous Zosyn Recently finished a course of antibiotic with doxycycline Will check MRSA screen before putting any staph coverage Will get podiatry consult (2) Cellulitis of right leg: Plan: As above (3) 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: Plan: Has been on subcu continuous infusion of insulin Will put him on sliding scale coverage and consult glycemic pharmacist (4) Morbid obesity: (5) CKD (chronic kidney disease) stage 3, GFR 30-59 ml/min: Plan: History of chronic kidney disease stage III Creatinine today remains normal at 1.13 (6) NINA on CPAP: Plan: Continue with the CPAP and/or BiPAP as at home (7) Ischemic cardiomyopathy: Plan: History of ischemic cardiomyopathy status post AICD placement No acute issue with the heart at this time and denies any cardiac symptoms (8) Cardiac defibrillator in situ: (9) Hypertension: (10) Atrial fibrillation: Plan: Has atrial fibrillation and the rate is controlled Will continue the current medications (11) Chronic diastolic heart failure: Plan: Has been on metolazone and oral torsemide Will continue with metolazone and add intravenous furosemide 40 mg twice daily for now Monitor electrolytes (12) History of amputation of left foot: Plan: Complains to have swelling of the stamp on the right side Continue with intravenous Lasix for now (13) Adjustment disorder with mixed disturbance of emotions and conduct: Plan: Continue antidepressant DVT prophylaxis Has been on Coumadin Therapeutic INR CODE STATUS Full code History of Present Illness Chief Complaint: Right foot pain with swelling of the right leg and left thigh for the last few days Primary Care Provider: Sherry Maya DO He is a 57 years old morbidly obese male with significant past medical history of chronic combined systolic and diastolic heart failure, well-controlled asthma, AIDP sacral, CKD, diabetes type 2 on insulin, GERD, history of diabetic ulcers of the foot, left AKA amputation status, hypertension, hypothyroidism, ischemic cardiomyopathy, peripheral artery disease, sleep apnea on BiPAP, and venous stasis ulcer on the right foot apparently has been complaining of increasing pain in the right foot associated with swelling of the right leg and left thigh for the last few days. He denies any fever and or chills associated with it. Denies any increasing shortness of breath associated with it. No nausea no vomiting. Apparently he was supposed to see his power regulator last Thursday but missed that. He recently finished doxycycline about 4 or 5 days ago for the ongoing foot infection. He gets this feet wounds dressed by home health nurse every 3 days and noted to have more drainage from the right sole of the foot recently with increasing pain. Denies any chest pain, shortness of breath or palpitation and has been taking his medications regularly. He remained stable hemodynamically in the emergency room without any fever and without any elevation of the white count. His wound was cultured and he was started with intravenous Zosyn following taking cultures and he was admitted to medical floor for continuation of care. Allergies Allergy/AdvReac Type Severity Reaction Status Date / Time benzonatate AdvReac Intermediate choking, Verified 05/18/23 15:49 gagging Home Medications Medication Instructions Recorded Confirmed Type mometasone-formoterol HFA 200 2 puffs inhalation BID 12/21/17 05/18/23 History mcg-5 mcg/actuation aerosol inhaler (Dulera) omeprazole 20 mg capsule,delayed 20 mg PO QAM 12/21/17 05/18/23 History release gabapentin 300 mg capsule 300 mg PO TID 04/12/19 05/18/23 History clobetasol 0.05 % topical cream 1 applic topical BID PRN dry skin 01/18/20 05/18/23 History albuterol sulfate 90 mcg/actuation 2 puff inhalation QID PRN SHORT OF 05/30/20 05/18/23 History aerosol inhaler (Ventolin HFA) BREATH aspirin 81 mg tablet,delayed 81 mg PO QAM 06/12/20 05/18/23 History release levothyroxine 88 mcg tablet 88 mcg PO DAILY 12/13/20 05/18/23 History spironolactone 25 mg tablet 25 mg PO DAILY 12/13/20 05/18/23 History magnesium oxide 400 mg PO DAILY 08/08/21 05/18/23 History sacubitril 24 mg-valsartan 26 mg 1 tab PO BID 09/27/21 05/18/23 History tablet (Entresto) insulin aspart U-100 100 unit/mL 240 unit (2.4 mL) continuous 04/19/22 05/18/23 Rx subcutaneous solution (Novolog subcutaneous infusion DAILY #216 mL U-100 Insulin aspart) tramadol 50 mg tablet 50 mg PO Q6H PRN Pain 06/06/22 05/18/23 History torsemide 20 mg tablet 20 mg PO QAM PRN Edema 12/02/22 05/18/23 History empagliflozin 25 mg tablet 25 mg PO DAILY #90 tabs 03/26/23 05/18/23 Rx acetaminophen 325 mg tablet 650 mg PO DIRECTED PRN PAIN, 05/18/23 05/18/23 History (Tylenol) MILD-MODERATE ergocalciferol (vitamin D2) 1,250 1,250 mcg PO WK 05/18/23 05/18/23 History mcg (50,000 unit) capsule (Vitamin D2) ferrous sulfate 325 mg (65 mg 325 mg PO BID 05/18/23 05/18/23 History iron) tablet hydrocodone 5 mg-acetaminophen 325 1 tab PO Q6H PRN Pain 05/18/23 05/18/23 History mg tablet loratadine 10 mg tablet (Claritin) 10 mg PO DAILY 05/18/23 05/18/23 History metolazone 5 mg tablet 5 mg PO .1-2 X WK 05/18/23 05/18/23 History nitroglycerin 0.4 mg sublingual 0.4 mg sublingual DIRECTED PRN 05/18/23 05/18/23 History tablet (Nitrostat) Chest Pain potassium chloride 10 mEq 20 meq PO QAM 05/18/23 05/18/23 History tablet,extended release(part/cryst) triamcinolone acetonide 0.1 % 1 applic topical BID 05/18/23 05/18/23 History lotion warfarin 2 mg tablet See Rx Instructions .Route .COMPLEX 05/18/23 05/18/23 History Past Med/Surg History Medical History (Updated 05/18/23 @ 16:33 by Bruno Zarco M.D.) Depression with suicidal ideation Acute osteomyelitis of left foot Peripheral arterial disease T2DM (type 2 diabetes mellitus) CHF (congestive heart failure) Acute on chronic combined systolic (congestive) and diastolic (congestive) heart failure Diabetic ulcer of right foot Sustained ventricular tachycardia Pneumonia due to COVID-19 virus SARS-CoV-2 positive Sepsis Cellulitis of left lower leg Diabetic ulcer of left heel associated with diabetes mellitus due to underlying condition, limited to breakdown of skin Acute on chronic renal failure Acute hypoxemic respiratory failure Sleep apnea BIPAP Rectal bleeding Depression Diabetes type 2, uncontrolled Vitamin D deficiency Diabetic peripheral neuropathy associated with type 2 diabetes mellitus Deformity of foot Adams fracture Base of left fifth metatarsal, nonhealing x years Dyslipidemia Hypertension Diabetic ulcer of left foot associated with type 2 diabetes mellitus, with fat l pina exposed Hx of sepsis 06/2019 Arthritis CAD (coronary artery disease) Venous stasis ulcer of right lower leg with edema of right lower leg Hypokalemia Bacteremia due to group B Streptococcus Lymphedema Sustained VT (ventricular tachycardia) GERD (gastroesophageal reflux disease) Hx of osteomyelitis Hx of myocardial infarction found on testing Asthma well controlled, daily continuous churn buttermaker 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 Cardiac defibrillator in situ 2007 with replacement 03/2020. follows with Dr. Maya. CKD (chronic kidney disease) stage 3, GFR 30-59 ml/min Morbid obesity H/O osteomyelitis History of diabetic ulcer of foot Hypothyroidism Ischemic cardiomyopathy Surgical History History of esophagogastroduodenoscopy (EGD) H/O foot surgery LEFT FOOT ULCER DEBRIDEMENT H/O cardiac radiofrequency ablation OCTOBER 2019 ([facility]) AT [facility] History of cardiac cath V. tach -- no stent. 06/2019. unsure where it was done History of sinus surgery Hx of tonsillectomy History of colonoscopy Hx of amputation of lesser toe H/O shoulder surgery left Family History Sister Family history of diabetes mellitus 2 Grandmother (Maternal) Family history of diabetes mellitus Grandfather (Maternal) Family history of diabetes mellitus Father Cancer Mother Cancer Other No family history of adverse response to anesthesia Social History Smoking Status: Never smoker Second Hand Exposure: No; Do You Dip or Chew Tobacco: No; Hx Alcohol Use: Yes Alcohol type: hard liquor Hx Substance Use: No Preferred Language: Danish Communication Ability: Effective Suit Attendant Required: No Beliefs That Will Affect Care: None marital status: Current Living Situation: Alone current occupational status: disabled How many Children do You have: 3 Other Information That Helps Us Care for You: No Feels Safe at Home: Yes Safety Concerns: Feels Safe At This Time Assistive Devices: CPAP and Wheelchair Review of Systems Review of Systems: All systems reviewed and are unremarkable except as noted below Physical Exam Physical Exam: Lying in bed with some drowsiness but otherwise alert awake and oriented x 3 Constitutional: well developed, well nourished, + ill appearing and + morbidly obese Eyes: PERRL, conjunctivae normal, anicteric sclerae ENMT: external ear and nose normal, oropharynx normal Neck: trachea midline, no thyromegaly Respiratory: no respiratory distress Auscultation: + diminished lung sounds and + crackles (Minimal crackles at the bases) Cardiovascular: Rate/Rhythm: regular rate, regular rhythm and + tachycardic Heart Sounds: normal S1 and normal S2; no murmur Extremities: + edema (Chronic edema on the right side with chronic skin changes. Left AKA status) Gastrointestinal (Abdomen): Inspection/Auscultation: + abdomen distended and normal bowel sounds Percussion/Palpation: abdomen soft; abdomen nontender Musculoskeletal: No acute arthritis involving any joint Neurologic: normal touch/pain/proprioception and moves all extremities (Left AKA) Lymphatic: no cervical or axillary lymphadenopathy Results & Data Results & Data Vital Signs (Past 12 Hours) Vital Signs Temp Pulse Resp BP Pulse Ox O2 Del Method 05/18/23 15:21 95 Room Air 05/18/23 15:06 104 H 05/18/23 14:56 36.3 C L 101 H 16 131/66 98 Room Air Laboratory Results Short CBC 05/18/23 Range/Units 16:15 WBC 7.95 (4.8-10.8) K/ul Hgb 12.8 L (14.0-18.0) g/dl Hct 39.8 L (42.0-52.0) % Plt Count 317 (130-400) K/uL BMP 05/18/23 16:15 Sodium 135 L Potassium 4.6 Chloride 101 Carbon Dioxide 27 BUN 23 Creatinine 1.13 Glucose 104 H Calcium 9.1 Liver Function 05/18/23 Range/Units 16:15 Total Bilirubin 2.0 H (0.2-1.0) mg/dl AST 24 (13-39) U/L ALT 10 (7-52) U/L Alkaline Phosphatase 144 H (34-104) U/L Albumin 3.3 L (3.4-5.0) gm/dl Medications Administered Current Inpatient Medications Furosemide (Furosemide 40 Mg/4 Ml Vial) 40 mg IV BID MATT Stop: 06/17/23 20:59 Insulin Aspart (Insulin Aspart Per Unit Charge) 0 units SC ACHS MATT Stop: 06/17/23 20:59 Miscellaneous Information (Pharmacy Glycemic Mgmt Consult) 1 each N/A UD PRN; Protocol PRN Reason: Consult Stop: 06/17/23 17:49 (5) CKD (chronic kidney disease) stage 3, GFR 30-59 ml/min Chronic kidney disease stage 3 subtype: stage 3a (GFR 45-59) Qualified Code(s): N18.31 - Chronic kidney disease, stage 3a (9) Hypertension Hypertension type: primary hypertension Qualified Code(s): I10 - Essential (primary) hypertension (10) Atrial fibrillation Atrial fibrillation type: paroxysmal Qualified Code(s): I48.0 - Paroxysmal atrial fibrillation
[2023-05-18] MEDS ORDERED: INSULIN ASPART 100 UNITS/ML VIAL SC PRN (18:30)
[2023-05-18 18:50] LABS: INR 3.1 (0.9-1.1); Prothrombin Time 31.4 Seconds (9.0-12.0)
[2023-05-18] MEDS ORDERED: NITROGLYCERIN SL 0.4 MG/TAB TAB SL PRN (20:17)
[2023-05-18] MEDS ORDERED: ALBUTEROL HFA 8 GM INHALER INH PRN (20:17)
[2023-05-18] MEDS ORDERED: CLOBETASOL PROPIONATE 0.05% CREAM 15 GM TUBE TOP PRN (20:17)
[2023-05-18] MEDS ORDERED: metOLazone 5 MG TABLET PO PRN (20:17)
[2023-05-18] MEDS: FUROSEMIDE 40 MG/4 ML VIAL IV SCH (20:31)
[2023-05-18] MEDS: PIPERACILLIN/TAZOBACTAM 4.5 GM/100ML D5W IV ONE (20:32)
[2023-05-18] MEDS: PIPERACILLIN/TAZOBACTAM 4.5 GM in DEXTROSE 5% MINI-B 100 ML IV SCH (20:32)
[2023-05-18] MEDS ORDERED: INSULIN ASPART PER UNIT CHARGE SC SCH (21:00)
[2023-05-18] MEDS: INSULIN, Rapid-Acting PUMP SCH (21:37)
[2023-05-18] MEDS: HYDROCODONE/ACETAMOPHEN 5/325MG TAB PO PRN (22:49)
[2023-05-19] MEDS: HYDROmorphone INJ 0.5 MG/0.5 ML SYR IV STA ×2 (00:01→08:52)
[2023-05-19] MEDS: VALSARTAN/SACUBITRIL 26/24MG TAB PO SCH (00:05)
[2023-05-19] MEDS: GABAPENTIN 300 MG CAP PO SCH (00:06)
[2023-05-19] MEDS: FERROUS SULFATE 325 MG TAB PO SCH (00:06)
[2023-05-19] MEDS: WARFARIN SOD 6 MG TAB PO SCH (00:07)
--- OUTSIDE RECORDS SUMMARY | 2023-05-19 00:29 | External Medical Summary | Summary of Care ---
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 Name Role Phone Sherry Maya DO Primary Care Provider Reason for Visit * Reason Onset Date Comments FYI 05/15/2023 Home health visi t Encounter Details Date Type Department Care Team (Late st Contact Info) Description 05/15/2023 Telephone [facility] [address] [place] [address] Sherry Maya DO [address] [place] [address] FYI (Home health visit) Allergies Active Allergy Reactions Criticality Noted Date Comments Benzonatate 12/08/2016 choking Keyanna Pedraza Other (Please comment) High 04/10/20 09 Choking documented as of this encounter (statuses as of 05/15/2023) Medications Medication Sig Dispensed Refills Start Date End Date Status KIT PEREZ MISCIndications:DM type 2, not at goal ([facility]) 3 Box Dosing Unit 1 04/17/2015 Active Nitroglycerin 0.4 MG Sublingual Tablet Sublingual Place under the tongue every 5 minutes as needed. Up to 3 in 15 minutes. 25 Tab 11 04/17/2015 Active Magnesium Oxide 400 MG CapsuleIndications:Hea rt failure, systolic, due to CAD ([facility]),Automatic implantable cardioverter-defibrill ator in situ,Chronic ischemic heart disease,Ischemic cardiomyopathy Take 1 Cap by mouth daily. 30 Cap 5 03/16/2017 Active Additional Information Patient not taking.Reported on 04/09/2023 Glucose Blood ([employer] VERIO) STRP USE TO TEST BLOOD GLUCOSE 8 TIMES A DAY 800 Strip 3 03/18/2019 Active Insulin Aspart 100 UNIT/ML Injection Solution Inject under the skin. FOR USE IN PUMP 0 Active [facility] w/Device Kit Use as directed. 0 02/21/2020 Active Diclofenac Sodium 1 % External Gel (Voltaren)Indications: Hand arthritis Apply topically to affected area daily. Apply to hands 100 g 0 05/31/2020 Active polyethylene glycol 3350 119 gram PO POWD Take 119 g by mouth daily as needed for Constipation. May use up to 2-3 times per day as needed. 0 08/09/2020 Active BiPAP every night at bedtime. 0 Active WalkerIndications:Oste omyelitis of foot, left, acute (HCC),Diabetic polyneuropathy associated with diabetes mellitus due to underlying condition (HCC),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),Right knee pain, unspecified chronicity,Heart failure, systolic, due to CAD (HCC) Bariatric heavy duty walker- 2 wheels- please document patient's weight at 308 1 Each 0 02/07/2021 Active DIURETIC TITRATION PLANIndications:Heart failure, systolic, due to CAD (HCC) If no improvement on day 3, contact heart failure managing provider. 1 Each 0 03/11/2021 Active Loratadine 10 MG Oral Tablet (Claritin) Take 1 Tablet by mouth daily. 100 Tablet 3 04/12/2021 Active Trulicity 1.5 MG/0.5ML Subcutaneous Solution Pen-injector Inject 1.5 mg under the skin once a week. 6 mL 3 04/12/2021 Active Additional Information Patient not taking.Reported on 05/14/2023 Metoprolol Succinate ER 25 MG Oral Tablet Extended Release 24 Hour (Toprol XL) Take 1 Tablet by mouth 2 times a day. 200 Tablet 3 04/12/2021 Active Albuterol Sulfate 108 (90 Base) MCG/ACT Inhalation Aerosol Powder Breath ActivatedIndications:A sthma in remission Inhale 2 Puffs by mouth 4 times a day as needed for Wheezing. 3 Each 3 04/12/2021 Active Aspirin 81 MG Oral Tablet ChewableIndications:Dy slipidemia, goal LDL below 100,DM type 2, not at goal (HCC),Diabetic polyneuropathy associated with type 1 diabetes mellitus (HCC),HTN, goal below 130/80,Abnormal electrocardiogram Take 1 Tablet by mouth daily. With food. 100 Tablet 5 04/12/2021 Active Acetaminophen 325 MG Oral Tablet (Tylenol) Take 2 Tablets by mouth as needed (for mild to moderate reaction (infusion reaction protocol)). 2 Tablet 11 04/12/2021 Active Ammonium Lactate 12 % External Lotion (Lac-Hydrin) Apply topically to affected area as needed for Dry Skin. Apply to rash on legs 400 g 1 04/15/2021 Active Meclizine HCl 12.5 MG Oral Tablet (Antivert) Take by mouth 1 Tablet as needed in the morning AND 1 Tablet as needed at noon AND 1 Tablet as needed in the evening for Dizziness. 30 Tablet 1 05/30/2021 Active Fluticasone Propionate 50 MCG/ACT Nasal SuspensionIndications: Otalgia, right,Dysfunction of Eustachian tube, right,Chronic rhinitis Administer into each nostril 2 Sprays in the morning. Administer 2 Sprays into each nostril daily.. 9.9 mL 10 08/05/2021 Active Additional Information Patient not taking.Reported on 04/09/2023 Atorvastatin Calcium 80 MG Oral Tablet (Lipitor)Indications:D yslipidemia, goal LDL below 100 Take 1 Tablet by mouth in the morning. 100 Tablet 3 05/02/2022 Active Additional Information Patient not taking.Reported on 04/09/2023 Mupirocin 2 % External Ointment (Bactroban) 0 03/23/2022 Acti ve Vitamin D (Ergocalciferol) 1.25 MG (52646 UT) Oral Capsule (Drisdol) take 1 capsule by mouth every week 12 Capsule 3 06/17/2022 Active Spironolactone 25 MG Oral Tablet (Aldactone)Indications :Heart failure, systolic, due to CAD (HCC),Ischemic cardiomyopathy Take 1 Tablet by mouth in the morning. 100 Tablet 3 06/17/2022 Active Warfarin Sodium 2 MG Oral Tablet (Coumadin) Take 1.5 to 2 tablets (3mg to 4mg) by mouth daily as instructed by Coumadin clinic (change in tablet strength from 1mg to 2mg) 180 Tablet 3 07/31/2022 Active Metoprolol Succinate ER 50 MG Oral Tablet Extended Release 24 Hour (toPROL XL) Take 1 Tablet by mouth in the morning and 1 Tablet before bedtime. Total of 75mg twice daily. 200 Tablet 3 08/09/2022 Active Gabapentin 300 MG Oral Capsule (Neurontin)Indications :Diabetic polyneuropathy associated with type 2 diabetes mellitus ([facility]) Take 1 Capsule by mouth in the morning and 1 Capsule at noon and 1 Capsule before bedtime. 300 Capsule 3 08/11/2022 Active Ferrous Sulfate 325 (65 Fe) MG Oral Tablet (Feosol)Indications:Ot her iron deficiency anemia Take 1 Tablet by mouth in the morning and 1 Tablet before bedtime. 60 Tablet 11 09/15/2022 Active Torsemide 20 MG Oral Tablet (Demadex)Indications:H TN, goal below 140/90,PAF (paroxysmal atrial fibrillation) ([facility]) Take 2 tablets (40mg) in AM and 20mg in the afternoon. 270 Tablet 3 10/29/2022 Active Clobetasol Propionate 0.05 % External Cream (Temovate)Indications: Dermatitis APPLY TO AFFECTED AREA(S) TWO TIMES A DAY 15 g 5 10/13/2022 10/13/19 24 Active Omeprazole 20 MG Oral Capsule Delayed Release (PriLOSEC)Indications: Heart burn TAKE ONE CAPSULE BY MOUTH ONCE DAILY 100 Capsule 1 08/18/2022 08/18/19 24 Active Sacubitril-Valsartan 24-26 MG Oral Tablet (Entresto)Indications: Heart failure, systolic, due to CAD ([facility]) TAKE ONE TABLET BY MOUTH EVERY MORNING AND TAKE ONE TABLET BY MOUTH EVERY DAY BEFORE BEDTIME 200 Tablet 3 08/11/2022 08/11/19 24 Active Levothyroxine Sodium 88 MCG Oral Tablet (Levoxyl)Indications:H ypothyroidism, unspecified type TAKE ONE TABLET BY MOUTH IN THE MORNING AT LEAST 30 MINS PRIOR TO BREAKFAST OR OTHER MEDS 100 Tablet 5 01/08/2023 Active Additional Information Patient not taking.Reported on 04/09/2023 HYDROcodone-Acetaminop hen 10-325 MG Oral TabletIndications:S/P BKA (below knee amputation) unilateral, left ([facility]) Take 1 Tablet by mouth every 6 hours as needed for Other (break thru pain, and do not take with the tramadol). 30 Tablet 0 01/23/2023 Active Cephalexin 500 MG Oral Capsule (Keflex) Take 1 Capsule by mouth in the morning and 1 Capsule at noon and 1 Capsule before bedtime. 0 Active Torsemide 20 MG Oral Tablet (Demadex) Take 1 Tablet by mouth as needed (for edema). 30 Tablet 1 04/09/2023 Active Triamcinolone Acetonide 0.1 % External Lotion (Aristocort)Indication s:Other eczema Apply topically to affected area 2 times a day. To dry skin on the lower legs and stump. Avoid on open wounds 60 mL 5 04/09/2023 Active Empagliflozin 25 MG Oral Tablet (Jardiance) Take 1 Tablet by mouth in the morning. 30 Tablet 3 04/09/2023 Active Potassium Chloride Tiffanie ER 10 MEQ Oral Tablet Extended ReleaseIndications:Isc hemic cardiomyopathy Take 2 Tablets by mouth in the morning. 200 Tablet 0 04/10/2023 Active traMADol HCl 50 MG Oral Tablet (Ultram)Indications:S/ P BKA (below knee amputation) unilateral, left (HCC) Take 1 Tablet by mouth every 6 hours as needed for Pain, Moderate. 30 Tablet 0 05/01/2023 Active HYDROcodone-Acetaminop hen 5-325 MG Oral TabletIndications:S/P BKA (below knee amputation) unilateral, left (HCC) Take 1 Tablet by mouth every 6 hours as needed for Pain, Severe. 60 Tablet 0 05/06/2023 Active metOLazone 5 MG Oral Tablet (Zaroxolyn) Take 1-2 tablet per week for leg swelling 30 Tablet 0 05/14/2023 Active documented as of this encounter (statuses as of 05/15/2023) Active Problems Problem Noted Date Diagnosed Date Other persistent atrial fibrillation 12/24/2022 Body mass index (BMI) of 50.0 to 59.9 in adult 0 12/02/2021 Overview: Per Obesity protocol - Per Obesity protocol - Per Obesity Taxonomy ICD-10 update of inactive term Major depressive disorder, recurrent, mild 07/29 Type 2 diabetes mellitus wit h diabetic peripheral angiopathy without gangrene 07/29/2021 Paroxysmal atrial fibrillation 07/29/2021 Insufficient social support 07/29/2021 Anemia 07/29/2021 Anxiety 07/29/2021 Chronic pain 07/29/2021 Closed fracture of fifth metatarsal bone 022 Depression 07/29/2021 Diabetic neuropathy 07/29/2021 Diabetic retinopathy 07/29/2021 Edema 07/29/2021 Elevated troponin level 07/29/2021 History of diabetic ulcer of foot 07/29/2021 Numbness 07/29/2021 Peripheral arterial disease 07/29/2021 Right heart failure (secondary to left heart kelton lure) 07/29/2021 ICD (implantable cardioverte r-defibrillator) battery depletion 07/29/2021 Statin intolerance 07/29/2021 Status post shoulder surgery 07/29/2021 Venous stasis ulcer 07/29/2021 Mass of leg, right 07/29/2021 S/P BKA (below knee amputation) unilateral, left 01/17/2021 Insulin pump status 01/11/2021 Atrial fibrillation 07/26/2020 Deep vein thrombosis (DVT) o f proximal vein of left lower extremity 06/29/2020 NINA (obstructive sleep apnea) 01/31/2020 VT (ventricular tachycardia) 07/04/2019 Overview: Added automatically from request for surgery [id number] 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 of right lower leg with unspecified severity 06/28/2019 Type 2 diabetes mellitus 10/26/2018 PHT (pulmonary hypertension) 04/02/2018 Insomnia 04/02/2018 Kidney disease, chronic, stage III (GFR 30-59 ml /min) 02/11/2017 Overview: Per CKD protocol History of osteomyelitis 02/11/2017 Cor pulmonale, chronic 01/05/2017 Overview: Last Assessment & Plan: Moderately severe Decompensated CHF despite Bumex and Zaroxolyn Continue IV Lasix and replace KCl Needs low salt diet, restricted fluid intake and compliance with CPAP and lose weight Chronic diastolic heart failure 12/15/2016 Atherosclerosis of coronary artery 12/08/2016 Overview: Last Assessment & Plan: - resume BB, statin Family history of pancreatic cancer 09/04/2016 Heart failure, systolic, due to CAD 08/01/2015 HTN, goal below 140/90 07/04/2014 Hypothyroidism 03/15/2014 Microalbuminuria 03/23/2013 Automatic implantable cardioverter-defibrillator in situ 06/16/2012 Ischemic cardiomyopathy 06/02/2012 S/P SURGERY FOR SHOULDER IMPINGEMENT SYNDROME 12/16/2010 CHR ISCHEMIC HRT OLD ANTERIOR INFARCT AGE INDETE RMINATE 10/14/2010 Vitamin D deficiency 07/17/2010 Obesity hypoventilation syndrome 07/24/2009 Overview: Per Obesity Taxonomy ICD-10 update of inactive term Dyslipidemia, goal LDL below 100 04/11/2009 Overview: Per Lipid Taxonomy. ASTHMA, IN REMISSION 02/05/2009 Overview: Per Provider Protocol. ED 12/05/2008 Testicular hypofunction 08/22/2008 Diabetic polyneuropathy 11/05/2007 DM, UNCONTROLLED, TYPE II 03/08/2001 documented as of this encounter (statuses as of 05/15/2023) Resolved Problems Problem Noted Date Diagnosed Date Resolved Date Food insecurity 09/02/2021 04/09/2023 Overview: Per [facility] Protocol Acute hypoxemic respiratory failure 07/29/2021 07/29/2021 Acute renal failure superimp osed on chronic kidney disease 07/29/2021 07/29/2021 Bacteremia due to group B Streptococcus 07/29/2021 07/29/2021 Hyperglycemia due to type 2 diabetes mellitus 07/30/1907/29/2021 Hypokalemia 07/29/2021 07/29/2021 Hypomagnesemia 07/29/2021 07/29/2021 Adams fracture 07/29/2021 07/29/2021 Malfunction of implantable d efibrillator ventricular (ICD) lead 07/29/2021 07/29/2021 Non-healing surgical wound 07/29/2021 0 07/29/2021 Partial traumatic amputation of right great toe 07/29/2021 06/03/2022 Pneumonia due to COVID-19 virus 07/29/2021 07/29/2021 SARS-CoV-2 positive 07/29/2021 07/30/19 Cellulitis 07/29/2021 07/29/2021 Volume overload 07/29/2021 07/29/2021 Volume overload state of heart 07/29/2021 07/29/2021 Stage 2 chronic kidney disease 07/29/2021 08/08/2021 Osteomyelitis of left foot 01/08/2021 0 07/29/2021 Body mass index (BMI) of 45. 0 to 49.9 in adult 09/04/2020 12/05/2021 Overview: Per Obesity protocol - Per Obesity Taxonomy ICD-10 update of inactive term Acute deep vein thrombosis ( DVT) of proximal vein of left lower extremity 07/03/2020 07/29/2021 Stage 3b chronic kidney disease 03/05/2020 07/29/2021 Overview: Per CKD protocol Right foot ulcer 12/05/2019 07/29/2021 Amputated great toe of right foot 06/28/2019 07/29/2021 Ventricular tachycardia 06/09/2019 04/0 07/2021 Amputated great toe of right foot 04/14/2019 11/07/2019 Amputated great toe of right foot 01/26/2019 11/07/2019 Amputated great toe of right foot 10/26/2018 11/07/2019 Food insecurity 03/08/2018 12/11/2020 Overview: Per [facility] Protocol RINALDI (dyspnea on exertion) 03/01/2018 Food insecurity 12/08/2017 02/18/2018 Overview: Per [facility] Protocol Amputated great toe of right foot 02/11/2017 11/07/2019 Body mass index (BMI) of 50. 0 to 59.9 in adult 01/26/2017 09/06/2020 Overview: Per Obesity protocol #1 - Per Obesity Taxonomy ICD-10 update of inactive term Diabetic ulcer of toe of rig ht foot associated with type 2 diabetes mellitus, limited to breakdown of skin 01/19/2017 02/18/2018 CHATO (acute kidney injury) 01/04/2017 Overview: Last Assessment & Plan: Sec to Cor pulmonale and v tach-- improving --avoid nephrotoxic agents --IVF's held d/t fluid overload - will monitor closely --daily BMP Pain of right lower extremity 09/04/2016 01/19/2017 Venous ulcer of right leg 09/04/2016 Chest pain 05/08/2014 03/25/2017 Injury of foot, left 10/21/2013 017 Silent myocardial infarction 03/23/2013 11/08/2018 Accelerate Clinical Trial*[id number] 01/24/2013 05/16/2015 Overview: ACCELERATE STUDY. Project # [id number], CHROMOSOMAL DISORDERS COUNSELOR: Ben Hoover MD. CRC: DEBORAH Back. SUMMARY: To test the hypothesis that Evacetrapib 130 mg, in comparison to placebo, reduces the risk of major adverse coronary events in high-risk vascular disease patients. CONTACTS: During normal business hours, contact study staff at ; after hours Senior Director Insight via the [facility] metal bonding press operator [phone]. 24-hour Global Study Helpline: [phone]. Lipid levels should not be ordered/obtained while this subject is in the Accelerate study. Lipids are being managed in a blinded fashion. If lipid levels are inadvertently obtained, it is important that test results are NOT provided to the patient, study doctor, recreation program coordinator, or other study team members. Restricted meds while in the study: 1) niacin > 250 mg, 2) gemfibrozil with a potent [id number]. NINA on CPAP 06/28/2012 01/31/2020 Overview: 06/28/12 -- CPAP 5-15 cwp 06/22/12 PSG -- AHI 21.5 [facility] HTN, goal below 140/80 12/15/201107/04 Overview: Per HTN Protocol #27. Cellulitis of right lower extremity 11/09/2009 07/29/2021 OVERWEIGHT 11/09/2009 12/23/2010 HTN, GOAL BELOW 130/80 05/23/200912/17 Overview: Per HTN Taxonomy. Asthma with severity to be determined 02/05/2009 03/29/2011 Overview: ICD-10 update of inactive term Overweight (BMI 25.0-29.9) 02/05/2009 0 07/24/2009 Overview: Per Obesity Taxonomy Dyslipidemia, goal LDL below 160 01/05/2009 04/11/2009 Overview: Per Lipid Taxonomy. Dysfunction of eustachian tube 08/31/2008 12/23/2010 Rotator cuff syndrome 04/03/20082010 Statin intolerance 09/08/2006 8 Dyslipidemia, goal to be determined 08/01/2003 03/21/2009 Overview: Per Lipid Taxonomy CONVERGENC INSUFFICIENCY 06/01/2003 Esophageal reflux 03/26/2001 05/24/2012 Other chronic sinusitis 03/26/200101/26 Acute bronchitis, antibiotics not indicated 03/08/2001 08/02/2003 HTN, goal below 140/90 03/08/200105/23 Overview: Per HTN Taxonomy. Encounter for long-term (cur rent) use of medications 05/22/2000 08/02/2003 Overview: ICD-10 update of inactive term Type 2 diabetes mellitus wit h hemoglobin A1c goal of less than 7.0% 03/06/2000 12/23/2010 Overview: ICD-10 update of inactive term Cervicalgia 09/11/1999 12/23/2010 CHRONIC SPASM OF MUSCLE, LEFT NECK 09/11/1999 12/23/2010 CHR ALLRG CONJUNCTIVITIS 09/11/1999 Allergic rhinitis 09/11/1999 12/23/2010 ELEV BL PRES W-O HYPERTN 09/11/199910/2003 documented as of this encounter (statuses as of 05/15/2023) Immunizations Name Administration Dates Next Due COVID-19 mRNA, LNP-s, No Pre serve, 2-Dose Series (Moderna) 10/04/2020,09/06/2020 COVID-19, mRNA, LNP-s, PF, B ooster, 100mcg/0.5mg (Moderna) 05/15/2021 Hepatitis B, 20+ yrs 11/16/2017,07/14/2017,05/1406/14/2017 Pneumococcal Conjugate Vacc, 13 Valent (Prevnar) 01/04/2017 Pneumococcal Polysaccharide PPV23 (Pneumovax) 09/08/2006 Seasonal Influenza, PF, 6 M & above, IM , (FluLaval or Fluzone) 01/23/2023,02/12/2022,04/05/2021,04/2019,01/26/2019 Seasonal Influenza, Quadriva lent, No Preserve, IM 01/25/2018,12/10/2016,05/21/2016 Seasonal Influenza, Split, I IV3, With Preserve, Inj 03/15/2014,02/09/2013,01/12/2012,04/28,05/07/2010,01/05/2009,03/13/20 08 03/15/2015 TDAP (age 10 and older)(Boostrix) 12/14/2015 TDAP (age 11 and older)(Adacel) 04/10/2008 Zoster Vaccine Recombinant (Shingrix) 01/17/2020 documented as of this encounter Social History Tobacco Use Types Packs/Day Years Used Date Smoking Tobacco: Never Passive Smoke Exposure: Past Smokeless Tobacco: Never Alcohol Use Standard Drinks/Week Comments Yes 0 (1 standard drink = 0.6 oz pur e alcohol) Very Seldom PHQ-2 Answer Date Recorded PHQ Adult Total Score 9 08/16/2021 Hunger Vital Sign Answer Date Recorded Within the past 12 months, y ou worried that your food would run out before you got the money to buy more. Sometimes true Within the past 12 months, t he food you bought just didn't last and you didn't have money to get more. Sometimes true Sex and Gender Information Value Date Recorded Sex Assigned at Male 08/16/2021 12:19 PM EDT Gender Identity Male 08/16/2021 12:19 PM EDT Sexual Orientation Choose not to disclose 2020 2:34 PM EDT Job Start Date Occupation Industry Not on file Not on file Not on file documented as of this encounter Functional Status Functional Status Response Date of Assess ment Are you deaf or do you have serious difficulty h earing? No 01/08/2021 Are you blind or do you have serious difficulty seeing, even when wearing glasses? No 01/08/2021 Do you have serious difficul ty walking or climbing stairs? (5 years old or older) Yes 01/24/2021 Do you have difficulty dress ing or bathing? (5 years old or older) No 01/08/2021 Because of a physical, menta l, or emotional condition, do you have difficulty doing errands alone such as visiting a doctor s office or shopping? (15 years old or older) Yes 01/09/20 Cognitive Status Response Date of Assessm ent Because of a physical, menta l, or emotional condition, do you have serious difficulty concentrating, remembering, or making decisions? (5 years old or older) No 01/08/2021 documented as of this encounter Miscellaneous Notes * Telephone Encounter - Yoanna Major OSA - 05/15/2023 1:43 PM EST Patient is very large and he will not cooperate to help lift leg to have leg bandaged.Home health is recommending a higher level of care that at this time the agency can not give with just one aide seeing him for visit.It is not safe for the home health aide and could possibly injure trying to wrappatient's leg by self. documented in this encounter Plan of Treatment Upcoming Encounters Date Type Department Care Team (Late st Contact Info) Description 05/20/2023 6:00 AM EST Anticoagulation Pharmacy Call Center WB [phone] [place] [address] [facility] [address] [facility] [place] [id number] 05/20/2023 10:20 AM EST Laboratory Lab Mobile Phlebotomy [facility] [address] [place] [address] [facility] Mobile Home Draw [address], [place] [id number] 06/19/2023 3:00 PM EST Telemedicine [facility] [place] [address] [place] [address] Carolee Manriquez PA-C [address] [place] [address] Paulina Bagley, Community Health Business Trainer [address] [place] [address] [place] [address] Scheduled Procedures Name Priority Associated Diagnoses Date/Ti me COLONOSCOPY FLEXIBLE PROXIMAL DIAGNOSTIC Recall History of colon polyps Health Maintenance Due Date Last Done Comments Depression Screening 08/16/2022 08/16/2021 Diabetic Foot Exam 08/16/2022 08/16/2021, 0 05/02/2020, 11/08/2018, Additional history exists CKD PHOS USE SMARTSET 89695 11/06/202210/25, 09/12/2020, 07/12/2020, Additional history exists COVID-19 Vaccine ( season) 2022 05/15/2021, 10/04/2020, 09/06/2020 COLONOSCOPY-EVERY 3 YRS AGES 18-100 06/01/2023 06/01/2020, 11/13/2015, 04/03/2015 Diabetic Eye Exam 06/06/2023 06/06/2022, , 06/06/2022, Additional history exists TSH 08/09/2023 08/08/2022, 07/26, 11/15/2020, Additional history exists Albumin/Creatinine Ratio 08/16/2023 04 023, 11/06/2021, 07/28/2018, Additional history exists HbA1c 09/26/2023 03/27/2023, 07/26, 06/10/2022, Additional history exists GFR 10/15/2023 04/15/2023, 1204/2022, 12/24/2022, Additional history exists CKD HGB USE SMARTSET 01840 04/15/202404/15, 04/15/2023, 12/24/2022, Additional history exists DTaP,Tdap,and Td Vaccines (3 - Td or Tdap) 12/13/2025 12/14/2015, 04/10/2008 Pneumococcal Vaccine: Pediatrics (0 to 5 Years) and At-Risk Patients (6 to 64 Years) (3 - PPSV23 or PCV20) 11/26/2028 01/04/2017, 09/08/2006 Hepatitis B Completed 11/16/2017, 06/26, 05/14/2017 Zoster Vaccines Completed 04/10/2020, 01/17/2020 Influenza Vaccine (FLU shot) Completed , 02/12/2022, 04/05/2021, Additional history exists GARDASIL-HPV IMMUNIZATION SERIES Aged Out No longer eligible based on patient's age to complete this topic MENINGOCOCCAL (MENACTRA/MENVEO) Aged Out No longer eligible based on patient's age to complete this topic documented as of this encounter Medical Devices Not on filedocumented as of this encounter Advance Directives Latest Code Status on File Code Status Date Activated Date Inactivated Comments Full Code 01/08/2021 2:47 AM 02/01/2021 2:20 PM This order reflects the patients wishes and were consensually agreed upon. Question Answer Comments Discussion of Advance Directives occurred with: Patient Code Status History Code Status Date Activated Date Inactivated Comments Full Code 12/05/2019 3:49 PM 12/06/2019 6:33 PM This order reflects the patients wishes and were consensually agreed upon. Question Answer Comments Discussion of Advance Directives occurred with: Patient Does the patient have a Living Will? No Does the patient have Health Care Power of Barrel Painter? No Full Code 12/05/2019 3:06 PM 12/05/2019 3:49 PM This order reflects the patients wishes and were consensually agreed upon. Full Code 11/07/2019 12:47 PM 11/08/2019 2:16 PM This order reflects the patients wishes and were consensually agreed upon. Question Answer Comments Discussion of Advance Directives occurred with: Not Discussed Does the patient have a Living Will? Yes, not currently available Does the patient have Health Care Power of Barrel Painter? Yes, not currently available Full Code 06/08/2019 4:36 AM 06/14/2019 4:10 PM This order reflects the patients wishes and were consensually agreed upon. Question Answer Comments Discussion of Advance Directives occurred with: Not Discussed Does the patient have a Living Will? No Does the patient have Health Care Power of Barrel Painter? No Healthcare Agents on File Name Relationship Healthcare Agent Relationshi p Communication Omar Lyle Adult Child [facility] re Agent Xi Mckeont Adult Child [facility] Care Agent Care Teams Office Machines Teacher Relationship Specialty Start Date End Date Sherry Maya DO [address] [place] [address] PCP - General Family Medicine 11/12/11 documented as of this encounter
--- OUTSIDE RECORDS SUMMARY | 2023-05-19 00:30 | External Medical Summary | Summary of Care ---
Author Name Unknown Organization [facility] Address [address] [place] [address] Phone [phone] Care Team Providers Care Head Grease Maker Name Role Phone Sherry Maya DO Primary Care Provider [phone] Reason for Visit * Reason Onset Date Comments Pacemaker Clinic 05/06/2023 [employer] advis ory Encounter Details Date Type Department Care Team (Late st Contact Info) Description 05/06/2023 Telephone Card[facility], [facility] [address] [facility] [address] [place], Pacer Clinic [facility] [address] [place] [address] Pacemaker Clinic ([employer] advisory) Allergies Active Allergy Reactions Criticality Noted Date Comments Benzonatate 12/08/2016 choking Keyanna Pedraza Other (Please comment) High 04/10/20 09 Choking documented as of this encounter (statuses as of 05/06/2023) Medications Medication Sig Dispensed Refills Start Date End Date Status KIT PEREZ MISCIndications:DM type 2, not at goal (HCC) 3 Box Dosing Unit 1 04/17/2015 Active Nitroglycerin 0.4 MG Sublingual Tablet Sublingual Place under the tongue every 5 minutes as needed. Up to 3 in 15 minutes. 25 Tab 11 04/17/2015 Active Magnesium Oxide 400 MG CapsuleIndications:Hea rt failure, systolic, due to CAD,Automatic implantable cardioverter-defibrill ator in situ,Chronic ischemic heart disease,Ischemic cardiomyopathy Take 1 Cap by mouth daily. 30 Cap 5 03/16/2017 Active Additional Information Patient not taking.Reported on 04/09/2023 Glucose Blood ([employer] VERIO) STRP USE TO TEST BLOOD GLUCOSE 8 TIMES A DAY 800 Strip 3 03/18/2019 Active Insulin Aspart 100 UNIT/ML Injection Solution Inject under the skin. FOR USE IN PUMP 0 Active [employer] Verio Flex System w/Device Kit Use as [...] unspecified chronicity,Heart failure, systolic, due to CAD Bariatric heavy duty walker- 2 wheels- please document patient's weight at 308 1 Each 0 02/07/2021 Active DIURETIC TITRATION PLANIndications:Heart failure, systolic, due to CAD If no improvement on day 3, contact heart failure managing provider. 1 Each 0 03/11/2021 Active Loratadine 10 MG Oral Tablet (Claritin) Take 1 Tablet by mouth daily. 100 Tablet 3 04/12/2021 Active Trulicity 1.5 MG/0.5ML Subcutaneous Solution Pen-injector Inject 1.5 mg under the skin once a week. 6 mL 3 04/12/2021 Active Metoprolol Succinate ER 25 MG Oral Tablet [...] Acti ve Vitamin D (Ergocalciferol) 1.25 MG (58539 UT) Oral Capsule (Drisdol) take 1 capsule by mouth every week 12 Capsule 3 06/17/2022 Active Spironolactone 25 MG Oral Tablet (Aldactone)Indications :Heart failure, systolic, due to CAD,Ischemic cardiomyopathy Take 1 Tablet by mouth in [...] polyneuropathy associated with type 2 diabetes mellitus (HCC) Take 1 Capsule by mouth in the [...] [place], goal below 140/90,PAF (paroxysmal atrial fibrillation) ([facility]) Take 2 tablets (40mg) in AM and [...] (Entresto)Indications: Heart failure, systolic, due to CAD TAKE ONE TABLET BY MOUTH EVERY MORNING [...] the morning. 200 Tablet 0 04/10/2023 Active HYDROcodone-Acetaminop hen 5-325 MG Oral TabletIndications:S/P BKA (below knee amputation) unilateral, left (HCC) Take 1 Tablet by mouth every 6 hours as needed for Pain, Severe. 60 Tablet 0 04/18/2023 Active traMADol HCl 50 MG Oral Tablet (Ultram)Indications:S/ P BKA (below knee amputation) unilateral, left (HCC) Take 1 Tablet by mouth every 6 hours as needed for Pain, Moderate. 30 Tablet 0 05/01/2023 Active documented as of this encounter (statuses as of 05/06/2023) Active Problems Problem Noted Date Diagnosed Date [...] Overview: Added automatically from request for surgery [id number] 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 [...] as of this encounter (statuses as of 05/06/2023) Resolved Problems Problem Noted Date Diagnosed Date Resolved Date Food insecurity 09/02/2021 04/09/2023 Overview: Per [facility] Protocol Acute hypoxemic respiratory failure 07/29/2021 07/29/2021 Acute renal failure superimp osed on chronic kidney disease 07/29/2021 07/29/2021 Bacteremia due to group B Streptococcus 07/29/2021 07/29/2021 Hyperglycemia due to type 2 diabetes mellitus 07/30/19 22 07/29/2021 Hypokalemia 07/29/2021 07/29/2021 Hypomagnesemia 07/29/2021 07/29/2021 Adams [...] Silent myocardial infarction 03/23/2013 11/08/2018 Accelerate Clinical Trial*[id number] 01/24/2013 05/16/2015 Overview: ACCELERATE STUDY. Project # [id number], POLICY CHECKER: Bne Hoover MD. CRC: DEBORAH Back. SUMMARY: To test the hypothesis that Evacetrapib 130 mg, in comparison to placebo, reduces the risk of major adverse coronary events in high-risk vascular disease patients. CONTACTS: During normal business hours, contact study staff at ; after hours Chronograph Operator via the [facility] wire mill operator [phone]. 24-hour Global Study Helpline: [phone]. Lipid levels should not be ordered/obtained while this subject is in the Accelerate study. Lipids are being managed in a blinded fashion. If lipid levels are inadvertently obtained, it is important that test results are NOT provided to the patient, study doctor, program and research coordinator, or other study team members. Restricted meds while in the study: 1) niacin > 250 mg, 2) gemfibrozil with a potent [id number]. NINA on CPAP 06/28/2012 01/31/2020 Overview: 06/28/12 [...] as of this encounter (statuses as of 05/06/2023) Immunizations Name Administration Dates Next Due COVID-19 mRNA, LNP-s, No Pre serve, 2-Dose Series (Moderna) 10/04/2020,09/06/2020 COVID-19, mRNA, LNP-s, PF, B ooster, 100mcg/0.5mg (Moderna) 05/15/2021 Hepatitis B, 20+ yrs 11/16/2017,07/14/2017,05/1406/14/2017 Pneumococcal Conjugate Vacc, 13 Valent (Prevnar) 01/04/2017 Pneumococcal Polysaccharide PPV23 (Pneumovax) 09/08/2006 Seasonal Influenza, PF, 6 M & above, IM , (FluLaval or Fluzone) 01/23/2023,02/12/2022,04/05/2021,09/0 04/2019,01/26/2019 Seasonal Influenza, Quadriva lent, No Preserve, IM [...] you got the money to buy more. Often true 04/09/20 23 Within the past 12 months, t he food you bought just didn't last and you didn't have money to get more. Often true 04/09/2023 Sex and Gender Information Value Date Recorded [...] encounter Miscellaneous Notes * Telephone Encounter - Ani Rios LPN - 05/06/2023 1:40 PM EST [employer]ed message sent to patient regading [employer]tronic advisory clinic days. documented in this encounter Plan of Treatment Upcoming Encounters Date Type Department Care Team (Late st Contact Info) Description 05/08/2023 6:00 AM EST Anticoagulation Pharmacy Call Center [address] [place] [address] [facility] [address] [place] [address] 05/14/2023 1:30 PM EST Telemedicine [facility], [place] [address] [place] [address] Carolee Manriquez PA-C [address] [place] [address] Edna Baum, [facility] Power Checker [address] [place] [address] Scheduled Procedures Name Priority Associated Diagnoses Date/Ti me COLONOSCOPY FLEXIBLE PROXIMAL DIAGNOSTIC Recall History of colon polyps Health Maintenance Due Date Last Done Comments Depression Screening 08/16/2022 08/16/2021 Diabetic Foot Exam 08/16/2022 08/16/2021, 0 05/02/2020, 11/08/2018, Additional history exists CKD PHOS USE SMARTSET 04041 11/06/202210/25, 09/12/2020, 07/12/2020, Additional history exists COVID-19 Vaccine ( season) 2022 05/15/2021, 10/04/2020, 09/06/2020 COLONOSCOPY-EVERY 3 YRS AGES 18-100 06/01/2023 06/01/2020, 11/13/2015, 04/03/2015 Diabetic Eye Exam 06/06/2023 06/06/2022, , 06/06/2022, Additional history exists TSH 08/09/2023 08/08/2022, 07/26, 11/15/2020, Additional history exists Albumin/Creatinine Ratio 08/16/2023 023, 11/06/2021, 07/28/2018, Additional history exists HbA1c 09/26/2023 03/27/2023, 07/26, 06/10/2022, Additional history exists GFR 10/15/2023 04/15/2023, 12/0 04/2022, 12/24/2022, Additional history exists CKD HGB USE SMARTSET 58414 04/15/202404/15, 04/15/2023, 12/24/2022, Additional history exists DTaP,Tdap,and [...] the patient have Health Care Power of Quilt Sewer? No Full Code 12/05/2019 3:06 PM 12/05/2019 [...] the patient have Health Care Power of Quilt Sewer? Yes, not currently available Full Code 06/08/2019 4:36 AM 06/14/2019 4:10 PM This order reflects the patients wishes and were consensually agreed upon. Question Answer Comments Discussion of Advance Directives occurred with: Not Discussed Does the patient have a Living Will? No Does the patient have Health Care Power of Quilt Sewer? No Healthcare Agents on File Name Relationship Healthcare Agent Relationshi p Communication Omar Lyle Adult Child [facility] re Agent Xi Lyle Adult Child Health Care Agent Care Teams Head Grease Maker Relationship Specialty Start Date End Date Sherry Maya DO [address] [facility] [place] [id number] PCP - General Family Medicine 11/12/11 documented as of this encounter
--- OUTSIDE RECORDS SUMMARY | 2023-05-19 00:30 | External Medical Summary | Summary of Care ---
Author Name Unknown Organization [facility] Address [address] [place] [address] Phone [phone] Care Team Providers Care Nut Processing Supervisor Name Role Phone Sherry Maya DO Primary Care Provider [phone] Reason for Visit * Reason Comments Dosage Adjustment Via Phone (anticoag Cl inic) Encounter Details Date Type Department Care Team (Latest Contact Info) Description 05/13/2023 6:00 PM EST Anticoagulation Pharmacy Call Center [address] [place] [address] [facility] [address] [place] [address] Chronic deep vein thrombosis (DVT) of proximal vein of left lower extremity (HCC)* Allergies Active Allergy Reactions Criticality Noted Date Comments Benzonatate 12/08/2016 choking Keyanna Pedraza Other (Please comment) High 04/10/20 09 Choking documented as of this encounter (statuses as of 05/13/2023) Medications Medication Sig Dispensed Refills Start Date End Date Status KIT PEREZ MISCIndications:DM type 2, not at goal ([facility]) 3 Box Dosing Unit 1 04/17/2015 Active [...] Patient not taking.Reported on 04/09/2023 Glucose Blood ([employer] VERIO) STRP USE TO TEST BLOOD GLUCOSE 8 TIMES A DAY 800 Strip 3 03/18/2019 Active Insulin Aspart 100 UNIT/ML Injection Solution Inject under the skin. FOR USE IN PUMP 0 Active [employer] Verio Flex System w/Device Kit Use as [...] Acti ve Vitamin D (Ergocalciferol) 1.25 MG (96229 UT) Oral Capsule (Drisdol) take 1 capsule [...] [place], goal below 140/90,PAF (paroxysmal atrial fibrillation) ([facility]) Take 2 tablets (40mg) in AM [...] Pain, Severe. 60 Tablet 0 05/06/2023 Active documented as of this encounter (statuses as of 05/13/2023) Active Problems Problem Noted Date Diagnosed Date [...] Overview: Added automatically from request for surgery [id number] 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 [...] as of this encounter (statuses as of 05/13/2023) Resolved Problems Problem Noted Date Diagnosed Date [...] Silent myocardial infarction 03/23/2013 11/08/2018 Accelerate Clinical Trial*[id number] 01/24/2013 05/16/2015 Overview: ACCELERATE STUDY. Project # [id number], CENTER REP: Ben Hoover MD. CRC: DEBORAH Back. SUMMARY: To test the hypothesis that Evacetrapib 130 mg, in comparison to placebo, reduces the risk of major adverse coronary events in high-risk vascular disease patients. CONTACTS: During normal business hours, contact study staff at ; after hours Communications Superintendent via the [facility] hospital utility operator [phone]. 24-hour Global Study Helpline: [phone]. Lipid levels should not be ordered/obtained while this subject is in the Accelerate study. Lipids are being managed in a blinded fashion. If lipid levels are inadvertently obtained, it is important that test results are NOT provided to the patient, study doctor, therapy site coordinator, or other study team members. Restricted meds while in the study: 1) niacin > 250 mg, 2) gemfibrozil with a potent [id number]. NINA on CPAP 06/28/2012 01/31/2020 Overview: 06/28/12 [...] as of this encounter (statuses as of 05/13/2023) Immunizations Name Administration Dates Next Due COVID-19 [...] No 01/08/2021 documented as of this encounter Progress Notes * Jaimee Gandhi, [facility] - 05/13/2023 2:08 PM EST Images from the original note were not included. Medication Therapy Disease Management - Anticoagulation Patient: Ben Young Valdo | : 1965 Subjective Contacts Type Contact Phone/Fax 05/13/2023 02:15 PM EST Phone (Outgoing) Ben Lyle (Self) [phone] (M) Spoke to Patient Patient-Reported Symptoms: Patient Findings Negatives: Signs/symptoms of thrombosis, Signs/symptoms of bleeding, Change in health, Change in alcohol use, Change in activity, Upcoming invasive procedure, Missed doses, Extra doses, Change in medications, Change in diet/appetite, Bruising Objective Current Warfarin Dose As of 05/13/2023 Warfarin maintenance plan: 6 mg (2 mg x 3) every Mon; 4 mg (2 mg x 2) all other days INR Result As of 05/13/2023 INR goal: 2.0-3.0 INR used for dosin.1 (05/13/2023) Assessment & Plan Warfarin Plan As of 05/13/2023 Full warfarin instructions: 05/13: Hold; 05/14: Hold; 05/15: Hold; Otherwise 6 mg every Mon; 4 mg all other days Next INR check: 05/19/2023 Repeat PT/INR in 1 week(s) Weekly dose: not changed Additional Dosing Information: Description GML MTuTh- AMIO (patient has 5mg and 1mg tabs) Jaimee Gandhi [facility] Clinical Pharmacist 05/13/2023, 2:08 PM documented in this encounter Plan of Treatment Upcoming Encounters Date Type Department Care Team (Late st Contact Info) Description 05/14/2023 1:30 PM EST Telemedicine [facility], [place] [address] [place] [address] Carolee Manriquez PA-C [address] [place] [address] Edna Baum, Community Health Assistant Customer Service Manager [address] [place] [address] 05/20/2023 6:00 AM EST Anticoagulation Pharmacy Call Center [address] [facility] [address] [facility] [address] [facility] [address] Scheduled Procedures Name Priority Associated Diagnoses Date/Ti me COLONOSCOPY FLEXIBLE PROXIMAL DIAGNOSTIC Recall History of colon polyps Health Maintenance Due Date Last Done Comments Depression Screening 08/16/2022 08/16/2021 Diabetic Foot Exam 08/16/2022 08/16/2021, 0 05/02/2020, 11/08/2018, Additional history exists CKD PHOS USE SMARTSET 59759 11/06/202210/25, 09/12/2020, 07/12/2020, Additional history exists COVID-19 Vaccine ( season) 2022 05/15/2021, 10/04/2020, 09/06/2020 COLONOSCOPY-EVERY 3 YRS AGES 18-100 06/01/2023 06/01/2020, 11/13/2015, 04/03/2015 Diabetic Eye Exam 06/06/2023 06/06/2022, , 06/06/2022, Additional history exists TSH 08/09/2023 08/08/2022, 07/26, 11/15/2020, Additional history exists Albumin/Creatinine Ratio 08/16/2023 023, 11/06/2021, 07/28/2018, Additional history exists HbA1c 09/26/2023 03/27/2023, 07/26, 06/10/2022, Additional history exists GFR 10/15/2023 04/15/2023, 12/04/2022, 12/24/2022, Additional history exists CKD HGB USE SMARTSET 27504 04/15/202404/15, 04/15/2023, 12/24/2022, Additional history exists DTaP,Tdap,and [...] Not on filedocumented as of this encounter Visit Diagnoses Diagnosis Chronic deep vein thrombosis (DVT) of proximal vein of left lower extremity (HCC)- Primary documented in this encounter Advance Directives Latest Code Status [...] the patient have Health Care Power of Button Sewer Hand? No Full Code 12/05/2019 3:06 PM 12/05/2019 [...] the patient have Health Care Power of Button Sewer Hand? Yes, not currently available Full Code 06/08/2019 4:36 AM 06/14/2019 4:10 PM This order reflects the patients wishes and were consensually agreed upon. Question Answer Comments Discussion of Advance Directives occurred with: Not Discussed Does the patient have a Living Will? No Does the patient have Health Care Power of Button Sewer Hand? No Healthcare Agents on File Name Relationship Healthcare Agent Relationshi p Communication Omar Lyle Adult Child [facility] re Agent Xi Mckeont Adult Child [facility] Care Agent Care Teams Nut Processing Supervisor Relationship Specialty Start Date End Date Sherry Maya DO [address] [place] [address] PCP - General Family Medicine 11/12/11 documented as of this encounter"
--- OUTSIDE RECORDS SUMMARY | 2023-05-19 00:30 | External Medical Summary | Summary of Care ---
Author Name Unknown Organization [facility] Address [address] [place] [address] Phone [phone] Care Team Providers Care Electrical Sign Wirer Helper Name Role Phone David Siegel DO Primary Care Provider [phone] Reason for Visit * Reason Onset Date Comments Medication Refill 04/29/2023 Encounter Details Date Type Department Care Team (Late st Contact Info) Description 04/29/2023 Refill [facility] [address] [place] [address] David Siegel DO [address] [place] [address] S/P BKA (below knee amputation) unilateral, left (HCC) Allergies Active Allergy Reactions Criticality Noted Date Comments Benzonatate 12/08/2016 choking Keyanna Pedraza Other (Please comment) High 04/10/20 09 Choking documented as of this encounter (statuses as of 05/01/2023) Medications Medication Sig Dispensed Refills Start Date End Date Status ONETOUCH LANCJOSIE MISCIndications:DM type 2, not at goal ([facility]) 3 Box Dosing Unit 1 5 Active Nitroglycerin 0.4 MG Sublingual Tablet Sublingual Place under the tongue every 5 minutes as needed. Up to 3 in 15 minutes. 25 Tab 11 5 Active Magnesium Oxide 400 MG CapsuleIndications:Hea rt failure, systolic, due to CAD,Automatic implantable cardioverter-defibrill ator in situ,Chronic ischemic heart disease,Ischemic cardiomyopathy Take 1 Cap by mouth daily. 30 Cap 5 7 Active Additional Information Patient not taking.Reported on 04/09/2023 Glucose Blood (PhotoTLC VERIO) STRP USE TO TEST BLOOD GLUCOSE 8 TIMES A DAY 800 Strip 3 9 Active Insulin Aspart 100 UNIT/ML Injection Solution Inject under the skin. FOR USE IN PUMP 0 Active Mob[employer] Technology srlToHookLogic Verio Flex System w/Device Kit Use as directed. 0 0 Active Diclofenac Sodium 1 % External Gel (Voltaren)Indications: Hand arthritis Apply topically to affected area daily. Apply to hands 100 g 0 1 Active polyethylene glycol 3350 119 gram PO POWD Take 119 g by mouth daily as needed for Constipation. May use up to 2-3 times per day as needed. 0 1 Active BiPAP every night at bedtime. 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 1 Each 0 1 Active Loratadine 10 MG Oral Tablet (Claritin) Take 1 Tablet by mouth daily. 100 Tablet 3 1 Active Trulicity 1.5 MG/0.5ML Subcutaneous Solution Pen-injector Inject 1.5 mg under the skin once a week. 6 mL 3 1 Active Metoprolol Succinate ER 25 MG Oral Tablet Extended Release 24 Hour (Toprol XL) Take 1 Tablet by mouth 2 times a day. 200 Tablet 3 1 Active Albuterol Sulfate 108 (90 Base) MCG/ACT Inhalation Aerosol Powder Breath ActivatedIndications:A sthma in remission Inhale 2 Puffs by mouth 4 times a day as needed for Wheezing. 3 Each 3 1 Active Aspirin 81 MG Oral Tablet ChewableIndications:Dy slipidemia, goal LDL below 100,DM type 2, not at goal (HCC),Diabetic polyneuropathy associated with type 1 diabetes mellitus (HCC),HTN, goal below 130/80,Abnormal electrocardiogram Take 1 Tablet by mouth daily. With food. 100 Tablet 5 1 Active Acetaminophen 325 MG Oral Tablet (Tylenol) Take 2 Tablets by mouth as needed (for mild to moderate reaction (infusion reaction protocol)). 2 Tablet 11 1 Active Ammonium Lactate 12 % External Lotion (Lac-Hydrin) Apply topically to affected area as needed for Dry Skin. Apply to rash on legs 400 g 1 1 Active Meclizine HCl 12.5 MG Oral Tablet (Antivert) Take by mouth 1 Tablet as needed in the morning AND 1 Tablet as needed at noon AND 1 Tablet as needed in the evening for Dizziness. 30 Tablet 1 2 Active Fluticasone Propionate 50 MCG/ACT Nasal SuspensionIndications: Otalgia, right,Dysfunction of Eustachian tube, right,Chronic rhinitis Administer into each nostril 2 Sprays in the morning. Administer 2 Sprays into each nostril daily.. 9.9 mL 10 2 Active Additional Information Patient not taking.Reported on 04/09/2023 Atorvastatin Calcium 80 MG Oral Tablet (Lipitor)Indications:D yslipidemia, goal LDL below 100 Take 1 Tablet by mouth in the morning. 100 Tablet 3 3 Active Additional Information Patient not taking.Reported on 04/09/2023 Mupirocin 2 % External Ointment (Bactroban) 0 2 Active Vitamin D (Ergocalciferol) 1.25 MG (50902 UT) Oral Capsule (Drisdol) take 1 capsule by mouth every week 12 Capsule 3 3 Active Spironolactone 25 MG Oral Tablet (Aldactone)Indications :Heart failure, systolic, due to CAD,Ischemic cardiomyopathy Take 1 Tablet by mouth in the morning. 100 Tablet 3 3 Active Warfarin Sodium 2 MG Oral Tablet (Coumadin) Take 1.5 to 2 tablets (3mg to 4mg) by mouth daily as instructed by Coumadin clinic (change in tablet strength from 1mg to 2mg) 180 Tablet 3 3 Active Metoprolol Succinate ER 50 MG Oral Tablet Extended Release 24 Hour (toPROL XL) Take 1 Tablet by mouth in the morning and 1 Tablet before bedtime. Total of 75mg twice daily. 200 Tablet 3 3 Active Gabapentin 300 MG Oral Capsule (Neurontin)Indications :Diabetic polyneuropathy associated with type 2 diabetes mellitus (HCC) Take 1 Capsule by mouth in the morning and 1 Capsule at noon and 1 Capsule before bedtime. 300 Capsule 3 3 Active Ferrous Sulfate 325 (65 Fe) MG Oral Tablet (Feosol)Indications:Ot her iron deficiency anemia Take 1 Tablet by mouth in the morning and 1 Tablet before bedtime. 60 Tablet 11 3 Active Torsemide 20 MG Oral Tablet (Demadex)Indications:H TN, goal below 140/90,PAF (paroxysmal atrial fibrillation) ([facility]) Take 2 tablets (40mg) in AM and 20mg in the afternoon. 270 Tablet 3 3 Active Clobetasol Propionate 0.05 % External Cream (Temovate)Indications: Dermatitis APPLY TO AFFECTED AREA(S) TWO TIMES A DAY 15 g 3 10/13/19 24 Active Omeprazole 20 MG Oral Capsule Delayed Release (PriLOSEC)Indications: Heart burn TAKE ONE CAPSULE BY MOUTH ONCE DAILY 100 Capsule 1 3 08/18/19 24 Active Sacubitril-Valsartan 24-26 MG Oral Tablet (Entresto)Indications: Heart failure, systolic, due to CAD TAKE ONE TABLET BY MOUTH EVERY MORNING AND TAKE ONE TABLET BY MOUTH EVERY DAY BEFORE BEDTIME 200 Tablet 3 3 08/11/19 24 Active Levothyroxine Sodium 88 MCG Oral Tablet (Levoxyl)Indications:H ypothyroidism, unspecified type TAKE ONE TABLET BY MOUTH IN THE MORNING AT LEAST 30 MINS PRIOR TO BREAKFAST OR OTHER MEDS 100 Tablet 5 3 Active Additional Information Patient not taking.Reported on 04/09/2023 HYDROcodone-Acetaminop hen 10-325 MG Oral TabletIndications:S/P BKA (below knee amputation) unilateral, left (HCC) Take 1 Tablet by mouth every 6 hours as needed for Other (break thru pain, and do not take with the tramadol). 30 Tablet 0 3 Active Cephalexin 500 MG Oral Capsule (Keflex) Take 1 Capsule by mouth in the morning and 1 Capsule at noon and 1 Capsule before bedtime. 0 Active Torsemide 20 MG Oral Tablet (Demadex) Take 1 Tablet by mouth as needed (for edema). 30 Tablet 1 3 Active Triamcinolone Acetonide 0.1 % External Lotion (Aristocort)Indication s:Other eczema Apply topically to affected area 2 times a day. To dry skin on the lower legs and stump. Avoid on open wounds 60 mL 5 3 Active Empagliflozin 25 MG Oral Tablet (Jardiance) Take 1 Tablet by mouth in the morning. 30 Tablet 3 3 Active Potassium Chloride Tiffanie ER 10 MEQ Oral Tablet Extended ReleaseIndications:Isc hemic cardiomyopathy Take 2 Tablets by mouth in the morning. 200 Tablet 0 3 Active HYDROcodone-Acetaminop hen 5-325 MG Oral TabletIndications:S/P BKA (below knee amputation) unilateral, left (HCC) Take 1 Tablet by mouth every 6 hours as needed for Pain, Severe. 60 Tablet 0 3 Active Doxycycline Hyclate 100 MG Oral Capsule Take 1 Capsule by mouth in the morning and 1 Capsule before bedtime. Do all this for 10 days. Until gone.. 20 Capsule 0 3 05/04/19 24 Active traMADol HCl 50 MG Oral Tablet (Ultram)Indications:S/ P BKA (below knee amputation) unilateral, left (HCC) Take 1 Tablet by mouth every 6 hours as needed for Pain, Moderate. 30 Tablet 0 4 Active traMADol HCl 50 MG Oral Tablet (Ultram)Indications:S/ P BKA (below knee amputation) unilateral, left (HCC) Take 1 Tablet by mouth every 6 hours as needed for Pain, Moderate. 30 Tablet 0 3 04/29/19 24 Discontinu ed(Refill) documented as of this encounter (statuses as of 05/01/2023) Active Problems Problem Noted Date Diagnosed Date [...] Overview: Added automatically from request for surgery [id number] 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 [...] as of this encounter (statuses as of 05/01/2023) Resolved Problems Problem Noted Date Diagnosed Date [...] Silent myocardial infarction 03/23/2013 11/08/2018 Accelerate Clinical Trial*[id number] 01/24/2013 05/16/2015 Overview: ACCELERATE STUDY. Project # [id number], RIVET HEATER: Ben Hoover MD. CRC: DEBORAH Back. SUMMARY: To test the hypothesis that Evacetrapib 130 mg, in comparison to placebo, reduces the risk of major adverse coronary events in high-risk vascular disease patients. CONTACTS: During normal business hours, contact study staff at ; after hours [address] Supervisor via the [facility] hospital tinsel machine operator [phone]. 24-hour Global Study Helpline: [phone]. Lipid levels should not be ordered/obtained while this subject is in the Accelerate study. Lipids are being managed in a blinded fashion. If lipid levels are inadvertently obtained, it is important that test results are NOT provided to the patient, study doctor, email marketing coordinator, or other study team members. Restricted meds while in the study: 1) niacin > 250 mg, 2) gemfibrozil with a potent [id number]. NINA on CPAP 06/28/2012 01/31/2020 Overview: 06/28/12 [...] as of this encounter (statuses as of 05/01/2023) Immunizations Name Administration Dates Next Due COVID-19 [...] encounter Miscellaneous Notes * Telephone Encounter - David Siegel DO - 05/01/2023 8:19 AM ESTSigned Prescriptions: Disp Refills traMADol HCl 50 MG Oral Tablet (Ultram) 30 Tab*0 Sig: Take 1 Tablet by mouth every 6 hours as needed for Pain, Moderate. Authorizing Provider: DAVID SIEGEL * Telephone Encounter - Aurea Jimenez [facility] - 04/30/2023 4:03 PM ESTPending Prescriptions: Disp Refills traMADol HCl 50 MG Oral Tablet (Ultram) 30 Tab*0 Sig: Take 1 Tablet by mouth every 6 hours as needed for Pain, Moderate. * Telephone Encounter - Aurea Jimenez [facility] - 04/30/2023 4:00 PM EST I have reviewed the patients controlled substance dispensing history in the Prescription Drug Monitoring Program in compliance with the [facility] regulations before prescribing a controlled substance. PDMP checked on 04/30/2023. Pending Prescriptions: Disp Refills traMADol HCl 50 MG Oral Tablet (Ultram) 30 Tab*0 Sig: Take 1 Tablet by mouth every 6 hours as needed for Pain, Moderate. Last Visit: 01/23/2023 (in office), 06/03/2022 (telemedicine) Next Visit: Visit date not found Date medication was last filled: 04/13/23 Date medication is due for refill: 04/20/23 Pharmacy: [id number] [facility] Is this request for a controlled substance? Yes and Urine Drug Screen Not completed Toxicology results: No results found. However, due to the size of the patient record, not all encounters were searched.Please check Results Review for a complete set of results. Please approve if appropriate. Thank you, Aurea Jimenez, PharmD Clinical Pharmacist [facility] Services ([facility]) 04/30/23 4:01 PM [phone] documented in this encounter Plan of Treatment Upcoming Encounters Date Type Department Care Team (Late st Contact Info) Description 05/08/2023 6:00 AM EST Anticoagulation Pharmacy Call Center [address] Renee Wise[place]AD[place] [address] [facility], [facility] [address] [facility] [place] [address] 05/14/2023 1:30 PM EST Telemedicine [facility], [place] [address] [place] [address] Carolee Manriquez PA-C [address] [place] [address] Edna Baum, [facility] Insole Doubler [address] [place] [address] Scheduled Procedures Name Priority Associated Diagnoses Date/Ti me COLONOSCOPY FLEXIBLE PROXIMAL DIAGNOSTIC Recall History of colon polyps Health Maintenance Due Date Last Done Comments Depression Screening 08/16/2022 08/16/2021 Diabetic Foot Exam 08/16/2022 08/16/2021, 0 05/02/2020, 11/08/2018, Additional history exists CKD PHOS USE SMARTSET 77686 11/06/202210/25, 09/12/2020, 07/12/2020, Additional history exists COVID-19 [...] Additional history exists CKD HGB USE SMARTSET 05502 04/15/202404/15, 04/15/2023, 12/24/2022, Additional history exists DTaP,Tdap,and [...] as of this encounter Visit Diagnoses Diagnosis S/P BKA (below knee amputation) unilateral, left (HCC) documented in this encounter Advance Directives Latest [...] the patient have Health Care Power of Pre Sales Technical Engineer? No Full Code 12/05/2019 3:06 PM 12/05/2019 [...] the patient have Health Care Power of Pre Sales Technical Engineer? Yes, not currently available Full Code 06/08/2019 4:36 AM 06/14/2019 4:10 PM This order reflects the patients wishes and were consensually agreed upon. Question Answer Comments Discussion of Advance Directives occurred with: Not Discussed Does the patient have a Living Will? No Does the patient have Health Care Power of Pre Sales Technical Engineer? No Healthcare Agents on File Name Relationship [facility] Omar Lyle Adult Child [facility] re Agent Xi Lyle Adult Child [facility] Care Agent Care Teams Electrical Sign Wirer Helper Relationship Specialty Start Date End Date David Siegel DO [address] [place] [address] PCP - General Family Medicine 11/12/11 documented as of this encounter
--- OUTSIDE RECORDS SUMMARY | 2023-05-19 00:30 | External Medical Summary ---
Author Name Unknown Address Unknown Organization K0G:[facility] [address] [place] [address] Laboratory Report Ordering Provider Test Date Status ALIE ROPER 05/13/2023 07:35:00 Final Standing order for pt/inr. < br/>Please draw pt/inr every 1 to 4 weeks as requested
Results to [facility]

Warfarin Therapy
INR: 2.0-3.0 conventional anticoagulation
INR: 2.5-3.5 high intensity anticoagulation Observation Date Value Abnormality Reference (Units ) Status PT 05/13/2023 07:35:00 55.1 Above high normal 11 .6-15.2 (seconds) Final Results rechecked. INR 05/13/2023 07:35:00 6.1 Above upper panic li mits 0.8-1.2 Final Results rechecked. Performing Location [facility] [address] [place] [address]
--- OUTSIDE RECORDS SUMMARY | 2023-05-19 00:30 | External Medical Summary | Summary of Care ---
Author Name Unknown Organization [facility] Address [address] [place] [address] Phone [phone] Care Team Providers Care Chief Radiation Therapist Name Role Phone Sherry Maya DO Primary Care Provider [phone] Reason for Visit * Reason Onset Date Comments Appointment 05/14/2023 Encounter Details Date Type Department Care Team ([facility] st Contact Info) Description 05/14/2023 Telephone [facility], [place] [address], [place] [id number] Services, Scheduling [address] [place] [address] Appointment (//) Allergies Active Allergy Reactions Criticality Noted Date Comments Benzonatate 12/08/2016 choking Keyanna Pedraza Other (Please comment) High 04/10/20 09 Choking documented as of this encounter (statuses as of 05/14/2023) Medications Medication Sig Dispensed Refills Start Date End Date Status ONEMALATHI PEREZ MISCIndications:DM type 2, not at goal (HCC) 3 Box Dosing Unit 1 04/17/2015 Active Nitroglycerin 0.4 MG Sublingual Tablet Sublingual Place under the tongue every 5 minutes as needed. Up to 3 in 15 minutes. 25 Tab 11 04/17/2015 Active Magnesium Oxide 400 MG CapsuleIndications:Hea rt failure, systolic, due to CAD (HCC),Automatic implantable cardioverter-defibrill ator in situ,Chronic ischemic heart disease,Ischemic cardiomyopathy Take 1 Cap by mouth daily. 30 Cap 5 03/16/2017 Active Additional Information Patient not taking.Reported on 04/09/2023 Glucose Blood (NixonTOUCH VERIO) STRP USE TO TEST BLOOD GLUCOSE 8 TIMES A DAY 800 Strip 3 03/18/2019 Active Insulin Aspart 100 UNIT/ML Injection Solution Inject under the skin. FOR USE IN PUMP 0 Active OneTouch Verio Flex System w/Device Kit Use as [...] Active WalkerIndications:Oste omyelitis of foot, left, acute ([facility]),Diabetic polyneuropathy associated with diabetes mellitus due to underlying condition ([facility]),Ulcer of right foot with necrosis of muscle ([facility]),Right knee pain, unspecified chronicity,Heart failure, systolic, due to CAD ([facility]) Bariatric heavy duty walker- 2 wheels- please document patient's weight at 308 1 Each 0 02/07/2021 Active DIURETIC TITRATION PLANIndications:Heart failure, systolic, due to CAD ([facility]) If no improvement on day 3, contact [...] below 100,DM type 2, not at goal ([facility]),Diabetic polyneuropathy associated with type 1 diabetes mellitus [...] Acti ve Vitamin D (Ergocalciferol) 1.25 MG (09219 UT) Oral Capsule (Drisdol) take 1 capsule [...] polyneuropathy associated with type 2 diabetes mellitus ([facility]) Take 1 Capsule by mouth in the [...] TN, goal below 140/90,PAF (paroxysmal atrial fibrillation) ([facility]) Take 2 tablets (40mg) in AM and [...] (Entresto)Indications: Heart failure, systolic, due to CAD ([facility]) TAKE ONE TABLET BY MOUTH EVERY MORNING [...] TabletIndications:S/P BKA (below knee amputation) unilateral, left ([facility]) Take 1 Tablet by mouth every 6 [...] as of this encounter (statuses as of 05/14/2023) Active Problems Problem Noted Date Diagnosed Date [...] Overview: Added automatically from request for surgery [id number] 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 [...] as of this encounter (statuses as of 05/14/2023) Resolved Problems Problem Noted Date Diagnosed Date [...] Silent myocardial infarction 03/23/2013 11/08/2018 Accelerate Clinical Trial*[id number] 01/24/2013 05/16/2015 Overview: ACCELERATE STUDY. Project # [id number], SURVEILLANCE INVESTIGATOR: Ben Hoover MD. CRC: DEBORAH Back. SUMMARY: To test the hypothesis that Evacetrapib 130 mg, in comparison to placebo, reduces the risk of major adverse coronary events in high-risk vascular disease patients. CONTACTS: During normal business hours, contact study staff at ; after hours Blackjack Supervisor via the [facility] hospital sprayer operator [phone]. 24-hour Global Study Helpline: [phone]. Lipid levels should not be ordered/obtained while this subject is in the Accelerate study. Lipids are being managed in a blinded fashion. If lipid levels are inadvertently obtained, it is important that test results are NOT provided to the patient, study doctor, management coordinator, or other study team members. Restricted meds while in the study: 1) niacin > 250 mg, 2) gemfibrozil with a potent [id number]. NINA on CPAP 06/28/2012 01/31/2020 Overview: 06/28/12 [...] as of this encounter (statuses as of 05/14/2023) Immunizations Name Administration Dates Next Due COVID-19 [...] encounter Miscellaneous Notes * Telephone Encounter - Konrad Padron OSA - 05/14/2023 3:33 PM EST Call to pt and confirmed return kaco telemed for 06/19 at 3pm, pt agreeable documented in this encounter Plan of Treatment Upcoming Encounters Date Type Department Care Team (Late st Contact Info) Description 05/20/2023 6:00 AM EST Anticoagulation Pharmacy Call Center [address] [place] [address] [facility] [address] [place] [address] 05/20/2023 10:20 AM EST Laboratory Lab Mobile Phlebotomy [facility] [address] [place] [address] [facility] Mobile Home Draw [address] [place] [address] 06/19/2023 3:00 PM EST [facility], [address] [place] [address] Carolee Manriquez PA-C [address] [place] [address] Paulina Bagley, [facility] [address] [place] [address] Scheduled Procedures Name Priority Associated Diagnoses Date/Ti me COLONOSCOPY FLEXIBLE PROXIMAL DIAGNOSTIC Recall History of colon polyps Health Maintenance Due Date Last Done Comments Depression Screening 08/16/2022 08/16/2021 Diabetic Foot Exam 08/16/2022 08/16/2021, 0 05/02/2020, 11/08/2018, Additional history exists CKD PHOS USE SMARTSET 48417 11/06/202210/25, 09/12/2020, 07/12/2020, Additional history exists COVID-19 [...] Additional history exists CKD HGB USE SMARTSET 58698 04/15/202404/15, 04/15/2023, 12/24/2022, Additional history exists DTaP,Tdap,and [...] the patient have Health Care Power of Help Desk Coordinator? No Full Code 12/05/2019 3:06 PM 12/05/2019 [...] the patient have Health Care Power of Help Desk Coordinator? Yes, not currently available Full Code 06/08/2019 4:36 AM 06/14/2019 4:10 PM This order reflects the patients wishes and were consensually agreed upon. Question Answer Comments Discussion of Advance Directives occurred with: Not Discussed Does the patient have a Living Will? No Does the patient have Health Care Power of Help Desk Coordinator? No Healthcare Agents on File Name Relationship [facility] Omar Lyle Adult Child [facility] re Agent Xi Lyel Adult Child Health Care Agent Care Teams Chief Radiation Therapist Relationship Specialty Start Date End Date Sherry Maya DO [address] [place] [address] PCP - General Family Medicine 11/12/11 documented as of this encounter
--- OUTSIDE RECORDS SUMMARY | 2023-05-19 00:30 | External Medical Summary | Summary of Care ---
Author Name Unknown Organization [facility] Address [address] [place] [address] Phone [phone] Care Team Providers Care Health Physics Technician Name Role Phone Sherry Maya DO Primary Care Provider [phone] Reason for Visit * Reason Onset Date Comments Appointment 05/04/2023 Encounter Details Date Type Department Care Team ([facility] st Contact Info) Description 05/04/2023 Telephone [facility] [place] [address] [place], [place] [id number] Services, Scheduling [address] [place] [address] Appointment (//) Allergies Active Allergy Reactions Criticality Noted Date Comments Benzonatate 12/08/2016 choking Keyanna Pedraza Other (Please comment) High 04/10/20 09 Choking documented as of this encounter (statuses as of 05/04/2023) Medications Medication Sig Dispensed Refills Start Date [...] Patient not taking.Reported on 04/09/2023 Glucose Blood (UnifysquareTOUCH VERIO) STRP USE TO TEST BLOOD GLUCOSE [...] Acti ve Vitamin D (Ergocalciferol) 1.25 MG (69321 UT) Oral Capsule (Drisdol) take 1 capsule [...] polyneuropathy associated with type 2 diabetes mellitus ([facility]) Take 1 Capsule by mouth in the [...] [place], goal below 140/90,PAF (paroxysmal atrial fibrillation) ([facility]) Take 2 tablets (40mg) in AM and [...] TabletIndications:S/P BKA (below knee amputation) unilateral, left ([facility]) Take 1 Tablet by mouth every 6 [...] Pain, Severe. 60 Tablet 0 04/18/2023 Active Doxycycline Hyclate 100 MG Oral Capsule Take 1 Capsule by mouth in the morning and 1 Capsule before bedtime. Do all this for 10 days. Until gone.. 20 Capsule 0 04/24/2023 05/04/19 24 Active traMADol HCl 50 MG Oral Tablet (Ultram)Indications:S/ P BKA (below knee amputation) unilateral, left ([facility]) Take 1 Tablet by mouth every 6 hours as needed for Pain, Moderate. 30 Tablet 0 05/01/2023 Active documented as of this encounter (statuses as of 05/04/2023) Active Problems Problem Noted Date Diagnosed Date [...] Overview: Added automatically from request for surgery [id number] 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 [...] as of this encounter (statuses as of 05/04/2023) Resolved Problems Problem Noted Date Diagnosed Date [...] Silent myocardial infarction 03/23/2013 11/08/2018 Accelerate Clinical Trial*[id number] 01/24/2013 05/16/2015 Overview: ACCELERATE STUDY. Project # [id number], RN DIABETES: Ben Hoover MD. CRC: DEBORAH Back. SUMMARY: To test the hypothesis that Evacetrapib 130 mg, in comparison to placebo, reduces the risk of major adverse coronary events in high-risk vascular disease patients. CONTACTS: During normal business hours, contact study staff at ; after hours Invasive Manager via the [facility] hospital whiteprinting machine operator [phone]. 24-hour Global Study Helpline: [phone]. Lipid levels should not be ordered/obtained while this subject is in the Accelerate study. Lipids are being managed in a blinded fashion. If lipid levels are inadvertently obtained, it is important that test results are NOT provided to the patient, study doctor, corporate safety coordinator, or other study team members. Restricted meds while in the study: 1) niacin > 250 mg, 2) gemfibrozil with a potent [id number]. NINA on CPAP 06/28/2012 01/31/2020 Overview: 06/28/12 [...] as of this encounter (statuses as of 05/04/2023) Immunizations Name Administration Dates Next Due COVID-19 mRNA, LNP-s, No Pre serve, 2-Dose Series (Moderna) 10/04/2020,09/06/2020 COVID-19, mRNA, LNP-s, PF, B ooster, 100mcg/0.5mg (Moderna) 05/15/2021 Hepatitis B, 20+ yrs 11/16/2017,07/14/2017,05/1406/14/2017 Pneumococcal Conjugate Vacc, 13 Valent (Prevnar) 01/04/2017 Pneumococcal Polysaccharide PPV23 (Pneumovax) 09/08/2006 Seasonal Influenza, PF, 6 M & above, IM , (FluLaval or Fluzone) 01/23/2023,02/12/2022,04/05/2021,090 04/2019,01/26/2019 Seasonal Influenza, Quadriva lent, No Preserve, [...] (15 years old or older) Yes 01/09/20 21 Cognitive Status Response Date of Assessm ent Because of a physical, menta l, or emotional condition, do you have serious difficulty concentrating, remembering, or making decisions? (5 years old or older) No 01/08/2021 documented as of this encounter Miscellaneous Notes * Telephone Encounter - Konrad Padron OSA - 05/04/2023 9:26 AM EST LMOM for pt to confirm which insurance he has, if not A/B, 05/14 [facility] appt will need cx documented in this encounter Plan of Treatment Upcoming Encounters Date Type Department Care Team (Late st Contact Info) Description 05/08/2023 6:00 AM EST Anticoagulation Pharmacy Call Center [address] [place] [address] [facility] [address] [facility] [address] 05/14/2023 1:30 PM EST Telemedicine [facility] [place], [place] [address] [place] [address] Carolee Manriquez PA-C [address] [place] [address] Edna Baum, Community Health Risk Control Consultant [address] [facility] [place] [address] Scheduled Procedures Name Priority Associated Diagnoses Date/Ti me COLONOSCOPY FLEXIBLE PROXIMAL DIAGNOSTIC Recall History of colon polyps Health Maintenance Due Date Last Done Comments Depression Screening 08/16/2022 08/16/2021 Diabetic Foot Exam 08/16/2022 08/16/2021, 0 05/02/2020, 11/08/2018, Additional history exists CKD PHOS USE SMARTSET 15610 11/06/202210/25, 09/12/2020, 07/12/2020, Additional history exists COVID-19 [...] Additional history exists CKD HGB USE SMARTSET 77066 04/15/202404/15, 04/15/2023, 12/24/2022, Additional history exists DTaP,Tdap,and [...] the patient have Health Care Power of Safety Assistant? No Full Code 12/05/2019 3:06 PM 12/05/2019 [...] the patient have Health Care Power of Safety Assistant? Yes, not currently available Full Code 06/08/2019 4:36 AM 06/14/2019 4:10 PM This order reflects the patients wishes and were consensually agreed upon. Question Answer Comments Discussion of Advance Directives occurred with: Not Discussed Does the patient have a Living Will? No Does the patient have Health Care Power of Safety Assistant? No Healthcare Agents on File Name Relationship Healthcare Agent Relationshi p Communication Omar Lyle Adult Child [facility] re Agent Trynea Valdo Adult Child Health Care Agent Care Teams Health Physics Technician Relationship Specialty Start Date End Date Sherry Maya DO [address] [facility] [place] [id number] PCP - General Family Medicine 11/12/11 documented as of this encounter
--- OUTSIDE RECORDS SUMMARY | 2023-05-19 00:30 | External Medical Summary | Summary of Care ---
Author Name Unknown Organization [facility] Address [address] [place] [address] Phone [phone] Care Team Providers Care Medical Office Secretary Name Role Phone Sherry Maya DO Primary Care Provider + [phone] Reason for Visit * Reason Comments Scheduling Encounter Details Date Type Department Care Team (Latest Contact Info) Description 05/08/2023 6:00 AM EST Anticoagulation Pharmacy Call Center [address] [place] [address] [facility] [address] [facility] [place] [address] Anticoagulation management encounter* Allergies Active Allergy Reactions Criticality Noted Date Comments Benzonatate 12/08/2016 choking Keyanna Pedraza Other (Please comment) High 04/10/20 09 Choking documented as of this encounter (statuses as of 05/08/2023) Medications Medication Sig Dispensed Refills Start Date [...] Patient not taking.Reported on 04/09/2023 Glucose Blood (TruantTodayTOUCH VERIO) STRP USE TO TEST BLOOD GLUCOSE [...] with diabetes mellitus due to underlying condition ([facility]),Ulcer of right foot with necrosis of muscle [...] Acti ve Vitamin D (Ergocalciferol) 1.25 MG (99759 UT) Oral Capsule (Drisdol) take 1 capsule [...] [place], goal below 140/90,PAF (paroxysmal atrial fibrillation) ([facility]) Take 2 tablets (40mg) in [...] TabletIndications:S/P BKA (below knee amputation) unilateral, left ([facility]) Take 1 Tablet by mouth [...] as of this encounter (statuses as of 05/08/2023) Active Problems Problem Noted Date Diagnosed Date [...] Overview: Added automatically from request for surgery [id number] 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 Project # [id number], RECORD KEEPER: Ben Hoover MD. CRC: DEBORAH Back. SUMMARY: To test the hypothesis that Evacetrapib 130 mg, in comparison to placebo, reduces the risk of major adverse coronary events in high-risk vascular disease patients. CONTACTS: During normal business hours, contact study staff at ; after hours Molder Labels via the [facility] hospital ground transportation operator [phone]. 24-hour Global Study Helpline: [phone]. Lipid levels should not be ordered/obtained while this subject is in the Accelerate study. Lipids are being managed in a blinded fashion. If lipid levels are inadvertently obtained, it is important that test results are NOT provided to the patient, study doctor, aquatics coordinator, or other study team members. Restricted meds while in the study: 1) niacin > 250 mg, 2) gemfibrozil with a potent [id number]. NINA on CPAP 06/28/2012 01/31/2020 Overview: 06/28/12 [...] as of this encounter (statuses as of 05/08/2023) Immunizations Name Administration Dates Next Due COVID-19 mRNA, LNP-s, No Pre serve, 2-Dose Series (Moderna) 10/04/2020,09/06/2020 COVID-19, mRNA, LNP-s, PF, B ooster, 100mcg/0.5mg (Moderna) 05/15/2021 Hepatitis B, 20+ yrs 11/16/2017,07/14/2017,05/1406/14/2017 Pneumococcal Conjugate Vacc, 13 Valent (Prevnar) 01/04/2017 Pneumococcal Polysaccharide PPV23 (Pneumovax) 09/08/2006 Seasonal Influenza, PF, 6 M & above, IM , (FluLaval or Fluzone) 01/23/2023,02/12/2022,04/05/2021,09/04/2019,01/26/2019 Seasonal Influenza, Quadriva lent, No Preserve, IM [...] as of this encounter Progress Notes * Chitra Medrano, billboard poster helper - 05/08/2023 7:14 AM EST Please schedule patient for PT/INR draw with GML on 05/13/23. Thank you. Jaimee Gandhi [facility] Thank you, Chitra Medrano Customer Experience Retail Clerk [facility] 05/08/2023,7:15 AM documented in this encounter Plan of Treatment Upcoming Encounters Date Type Department Care Team (Late st Contact Info) Description 05/14/2023 6:00 AM EST Anticoagulation Pharmacy Call Center [address] [place] [address] [facility] [address] [place] [address] 05/14/2023 1:30 PM EST Telemedicine [facility], [place] [address] [place] [address] Carolee Manriquez PA-C [address] [place] [address] Edna Baum, Community Health Gang Plank Workman [address] [place] [address] Scheduled Procedures Name Priority Associated Diagnoses Date/Ti me COLONOSCOPY FLEXIBLE PROXIMAL DIAGNOSTIC Recall History of colon polyps Health Maintenance Due Date Last Done Comments Depression Screening 08/16/2022 08/16/2021 Diabetic Foot Exam 08/16/2022 08/16/2021, 0 05/02/2020, 11/08/2018, Additional history exists CKD PHOS USE SMARTSET 58181 11/06/202210/25, 09/12/2020, 07/12/2020, Additional history exists COVID-19 [...] Additional history exists CKD HGB USE SMARTSET 35625 04/15/202404/15, 04/15/2023, 12/24/2022, Additional history exists DTaP,Tdap,and [...] as of this encounter Visit Diagnoses Diagnosis Anticoagulation management encounter- Primary Encounter for therapeutic drug monitoring documented in this encounter Advance Directives Latest [...] the patient have Health Care Power of Business Quality Assurance Analyst? No Full Code 12/05/2019 3:06 PM 12/05/2019 [...] the patient have Health Care Power of Business Quality Assurance Analyst? Yes, not currently available Full Code 06/08/2019 4:36 AM 06/14/2019 4:10 PM This order reflects the patients wishes and were consensually agreed upon. Question Answer Comments Discussion of Advance Directives occurred with: Not Discussed Does the patient have a Living Will? No Does the patient have Health Care Power of Business Quality Assurance Analyst? No Healthcare Agents on File Name Relationship Healthcare Agent [facility] p Communication Omar Lyle Adult Child [facility] re Agent Xi Mckeont Adult Child Health Care Agent Care Teams Medical Office Secretary Relationship Specialty Start Date End Date Sherry Maya DO [address] [facility] [place] [address] PCP - General Family Medicine 11/12/11 documented as of this encounter
--- OUTSIDE RECORDS SUMMARY | 2023-05-19 00:31 | External Medical Summary | Summary of Care ---
Author Name Unknown Organization [facility] Address [address] [place] [address] Phone [phone] Care Team Providers Care Pilot Highway Patrol Name Role Phone Sherry Maya DO Primary Care Provider + [phone] Reason for Visit * Reason Comments Dosage Adjustment Via Phone (anticoag Cl inic) Encounter Details Date Type Department Care Team (Latest Contact Info) Description 04/30/2023 6:00 AM EST Anticoagulation Pharmacy Call Center [address] [place] [address] [facility] [address] [facility] [place] [address] Chronic deep vein thrombosis (DVT) of proximal vein of left lower extremity (HCC)* Allergies Active Allergy Reactions Criticality Noted Date Comments Benzonatate 12/08/2016 choking Keyanna Pedraza Other (Please comment) High 04/10/20 09 Choking documented as of this encounter (statuses as of 04/30/2023) Medications Medication Sig Dispensed Refills Start Date End Date Status KIT PEREZ MISCIndications:DM type 2, not at goal ([facility]) 3 Box Dosing Unit 1 04/17/2015 [...] Patient not taking.Reported on 04/09/2023 Glucose Blood (JammitUCH VERIO) STRP USE TO TEST BLOOD GLUCOSE 8 TIMES A DAY 800 Strip 3 03/18/2019 Active Insulin Aspart 100 UNIT/ML Injection Solution Inject under the skin. FOR USE IN PUMP 0 Active HunchToViddsee Verio Flex System w/Device Kit Use as [...] Acti ve Vitamin D (Ergocalciferol) 1.25 MG (16083 UT) Oral Capsule (Drisdol) take 1 capsule [...] below 140/90,PAF (paroxysmal atrial fibrillation) ([facility]) Take 2 tablets (40mg) in AM [...] needed for Pain, Moderate. 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 Project # [id number], JOURNEYMAN OPERATOR ASSISTANT: Ben Hoover MD. CRC: DEBORAH Back. SUMMARY: To test the hypothesis that Evacetrapib 130 mg, in comparison to placebo, reduces the risk of major adverse coronary events in high-risk vascular disease patients. CONTACTS: During normal business hours, contact study staff at ; after hours Vascular Surgeon via the [facility] hospital staining machine operator [phone]. 24-hour Global Study Helpline: [phone]. Lipid levels should not be ordered/obtained while this subject is in the Accelerate study. Lipids are being managed in a blinded fashion. If lipid levels are inadvertently obtained, it is important that test results are NOT provided to the patient, study doctor, audio visual collections coordinator, or other study team members. Restricted meds while in the study: 1) niacin > 250 mg, 2) gemfibrozil with a potent [id number]. NINA on CPAP 06/28/2012 01/31/2020 Overview: 06/28/12 [...] as of this encounter (statuses as of 04/30/2023) Immunizations Name Administration Dates Next Due COVID-19 [...] as of this encounter Progress Notes * Shaye Ackerman PHARM Tech - 04/30/2023 1:05 PM EST Contacts Type Contact Phone/Fax 04/30/2023 01:02 PM EST Phone (Outgoing) Ben Lyle (Self) [phone] (M) Spoke to Patient Subjective Patient Findings Positives: Change in medications (doxycycline- advised to call with any N/V/D greater than 24 hours.) Negatives: Signs/symptoms of bleeding, Change in health, Change in activity, Upcoming invasive procedure, Missed doses, Extra doses, Change in diet/appetite, Bruising Advised patient to contact Anticoagulation Clinic if any unusual bruising or bleeding, recent illness, changes in medication, or questions/concerns. PT/INR results, Coumadin dose instructions, and next PT/INR date communicated as noted by Pharmacist: Yes IGGY CHRISTIANSON 04/30/2023, 1:05 PM * Jaimee Gandhi [facility] - 04/30/2023 12:21 PM EST Images from the original note were not included. Coumadin Clinic (region specific) Objective Current Warfarin Dose As of 04/30/2023 Warfarin maintenance plan: 4 mg (2 mg x 2) every day INR Result As of 04/30/2023 INR goal: 2.0-3.0 INR used for dosin.6 (04/29/2023) Assessment & Plan Warfarin Plan As of 04/30/2023 Full warfarin instructions: 04/30: 6 mg; Otherwise 6 mg every Mon; 4 mg all other days Next INR check: 05/07/2023 Repeat PT/INR in 1.5 week(s) Weekly dose: increased Additional Dosing Information: Description GML Cesar- AMIO (patient has 5mg and 1mg tabs) Tech to contact patient with dose instructions as noted. Jaimee Gandhi RPh 04/30/2023, 12:21 PM documented in this encounter Plan of Treatment Upcoming Encounters Date Type Department Care Team (Late st Contact Info) Description 05/14/2023 1:30 PM EST Telemedicine [facility], [place] [address] [place] [address] Carolee Manriquez PA-C [address] [place] [address] Edna Baum, Community Health Front Desk Supervisor [address] [place] [address] Scheduled Procedures Name Priority Associated Diagnoses Date/Ti me COLONOSCOPY FLEXIBLE PROXIMAL DIAGNOSTIC Recall History of colon polyps Health Maintenance Due Date Last Done Comments Depression Screening 08/16/2022 08/16/2021 Diabetic Foot Exam 08/16/2022 08/16/2021, 0 05/02/2020, 11/08/2018, Additional history exists CKD PHOS USE SMARTSET 94301 11/06/202210/25, 09/12/2020, 07/12/2020, Additional history exists COVID-19 Vaccine ( - 2022-24 season) 2022 05/15/2021, 10/04/2020, 09/06/2020 COLONOSCOPY-EVERY 3 YRS AGES 18-100 06/01/2023 06/01/2020, 11/13/2015, 04/03/2015 Diabetic Eye Exam 06/06/2023 06/06/2022, , 06/06/2022, Additional history exists TSH 08/09/2023 08/08/2022, 07/26, 11/15/2020, Additional history exists Albumin/Creatinine Ratio 08/16/2023 023, 11/06/2021, 07/28/2018, Additional history exists HbA1c 09/26/2023 03/27/2023, 07/26, 06/10/2022, Additional history exists GFR 10/15/2023 04/15/2023, 1204/2022, 12/24/2022, Additional history exists CKD HGB USE SMARTSET 79748 04/15/202404/15, 04/15/2023, 12/24/2022, Additional history exists DTaP,Tdap,and [...] the patient have Health Care Power of Scrap Separator? No Full Code 12/05/2019 3:06 PM 12/05/2019 [...] the patient have Health Care Power of Scrap Separator? Yes, not currently available Full Code 06/08/2019 4:36 AM 06/14/2019 4:10 PM This order reflects the patients wishes and were consensually agreed upon. Question Answer Comments Discussion of Advance Directives occurred with: Not Discussed Does the patient have a Living Will? No Does the patient have Health Care Power of Scrap Separator? No Healthcare Agents on File Name Relationship Healthcare Agent Relationshi p Communication Maurymemo Lyle Adult Child [facility] re Agent Xi Valdo Adult [facility] Care Agent Care Teams Pilot [employer] Patrol Relationship Specialty Start Date End Date Sherry Maya DO [address] [place] [address] PCP - General Family Medicine 11/12/11 documented as of this encounter
--- OUTSIDE RECORDS SUMMARY | 2023-05-19 00:31 | External Medical Summary | Summary of Care ---
Author Name Unknown Organization [facility] Address [address] [place] [address] Phone [phone] Care Team Providers Care Braker Passenger Train Name Role Phone Sherry Maya DO Primary Care Provider [phone] Reason for Visit * Reason Onset Date Comments Wound Care 04/23/2023 Encounter Details Date Type Department Care Team (Late st Contact Info) Description 04/23/2023 Toilet Attendant Telephone Care Coordination and Integration [address], [place] [id number] Helen Woods, ARMAND [address], [place] [id number] Wound Care Allergies Active Allergy Reactions Criticality Noted Date Comments Benzonatate 12/08/2016 choking Keyanna Pedraza Other (Please comment) High 04/10/20 09 Choking documented as of this encounter (statuses as of 04/28/2023) Medications Medication Sig Dispensed Refills Start Date End Date Status ONETOUCH CHRIS MISCIndications:DM type 2, not at goal (HCC) [...] Patient not taking.Reported on 04/09/2023 Glucose Blood (CheckInPageTOUCH VERIO) STRP USE TO TEST BLOOD GLUCOSE [...] Active WalkerIndications:Oste omyelitis of foot, left, acute ([facility]),Diabetic polyneuropathy associated with diabetes mellitus due to underlying condition ([facility]),Ulcer of right foot with necrosis of muscle ([facility]),Right knee pain, unspecified chronicity,Heart failure, systolic, due [...] below 100,DM type 2, not at goal ([facility]),Diabetic polyneuropathy associated with type 1 diabetes mellitus [...] Acti ve Vitamin D (Ergocalciferol) 1.25 MG (20660 UT) Oral Capsule (Drisdol) take 1 capsule [...] polyneuropathy associated with type 2 diabetes mellitus ([facility]) Take 1 Capsule by mouth [...] [place], goal below 140/90,PAF (paroxysmal atrial fibrillation) ([facility]) Take 2 tablets (40mg) in [...] TabletIndications:S/P BKA (below knee amputation) unilateral, left ([facility]) Take 1 Tablet by mouth [...] as of this encounter (statuses as of 04/28/2023) Active Problems Problem Noted Date Diagnosed Date [...] Overview: Added automatically from request for surgery [id number] 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 [...] as of this encounter (statuses as of 04/28/2023) Resolved Problems Problem Noted Date Diagnosed Date [...] Silent myocardial infarction 03/23/2013 11/08/2018 Accelerate Clinical Trial*[id number] 01/24/2013 05/16/2015 Overview: ACCELERATE STUDY. Project # [id number], HIV COUNSELOR: Ben Hoover MD. CRC: DEBORAH Back. SUMMARY: To test the hypothesis that Evacetrapib 130 mg, in comparison to placebo, reduces the risk of major adverse coronary events in high-risk vascular disease patients. CONTACTS: During normal business hours, contact study staff at ; after hours Fabrication And Layout Craftsman via the [facility] hospital vertical lathe operator [phone]. 24-hour Global Study Helpline: [phone]. Lipid levels should not be ordered/obtained while this subject is in the Accelerate study. Lipids are being managed in a blinded fashion. If lipid levels are inadvertently obtained, it is important that test results are NOT provided to the patient, study doctor, optometric coordinator, or other study team members. Restricted meds while in the study: 1) niacin > 250 mg, 2) gemfibrozil with a potent [id number]. NINA on CPAP 06/28/2012 01/31/2020 Overview: 06/28/12 [...] as of this encounter (statuses as of 04/28/2023) Immunizations Name Administration Dates Next Due COVID-19 mRNA, LNP-s, No Pre serve, 2-Dose Series (Moderna) 10/04/2020,09/06/2020 COVID-19, mRNA, LNP-s, PF, B ooster, 100mcg/0.5mg (Moderna) 05/15/2021 Hepatitis B, 20+ yrs 11/16/2017,07/14/2017,05/1406/14/2017 Pneumococcal Conjugate Vacc, 13 Valent (Prevnar) 01/04/2017 Pneumococcal Polysaccharide PPV23 (Pneumovax) 09/08/2006 Seasonal Influenza Virus Vac cine, Unspecified Formulation 01/25/1997 Seasonal Influenza, PF, 6 M & above, [...] encounter Miscellaneous Notes * Telephone Encounter - Helen Woods RN - 04/28/2023 2:57 PM EST Left a message for patient to make him aware that the antibiotic was sent to [facility] RN * Telephone Encounter - Sherry Maya DO - 04/24/2023 2:03 PM EST Doxy sent * Telephone Encounter - Helen Woods RN - 04/23/2023 1:51 PM EST Cee Velasco from [facility] calls in to report that she went to see Ben today for wound care, She states patient is afebrile, but has increased pain to his right leg & left stump. Patient has a wound to his right lower leg that has increased drainage, describes the drainage as purulent with an odor, she is asking if you can order an antibiotic for patient. Please send any medications to [facility] in [place] thanks Helen Woods, RN documented in this encounter Plan of Treatment Upcoming Encounters Date Type Department Care Team (Late st Contact Info) Description 04/29/2023 10:40 AM EST Laboratory Lab Mobile Phlebotomy [facility] [address] [place] [address] [facility], [facility] Mobile Home Draw [address] [place] [address] 05/01/2023 6:00 AM EST Anticoagulation Pharmacy Call Center [address] [place] [address] [facility], [facility] [address] [place] [address] 05/14/2023 1:30 PM EST Telemedicine [facility], [place] [address] [place] [address] Carolee Manriquez PA-C [address] [place] [address] Edna Baum, Community Health Set Decorator [address] [place] [address] Scheduled Procedures Name Priority Associated Diagnoses Date/Ti me COLONOSCOPY FLEXIBLE PROXIMAL DIAGNOSTIC Recall History of colon polyps Health Maintenance Due Date Last Done Comments Depression Screening 08/16/2022 08/16/2021 Diabetic Foot Exam 08/16/2022 08/16/2021, 0 05/02/2020, 11/08/2018, Additional history exists CKD PHOS USE SMARTSET 02310 11/06/202210/25, 09/12/2020, 07/12/2020, Additional history exists COVID-19 Vaccine (4 - 2022-24 season) 2022 05/15/2021, 10/04/2020, 09/06/2020 COLONOSCOPY-EVERY 3 YRS AGES 18-100 06/01/2023 06/01/2020, 11/13/2015, 04/03/2015 Diabetic Eye Exam 06/06/2023 06/06/2022, , 06/06/2022, Additional history exists TSH 08/09/2023 08/08/2022, 07/26, 11/15/2020, Additional history exists Albumin/Creatinine Ratio 08/16/2023 023, 11/06/2021, 07/28/2018, Additional history exists HbA1c 09/26/2023 03/27/2023, 07/26, 06/10/2022, Additional history exists GFR 10/15/2023 04/15/2023, 12/04/2022, 12/24/2022, Additional history exists CKD HGB USE SMARTSET 56388 04/15/202404/15, 04/15/2023, 12/24/2022, Additional history exists DTaP,Tdap,and [...] the patient have Health Care Power of Parcel Wrapper? No Full Code 12/05/2019 3:06 PM 12/05/2019 [...] the patient have Health Care Power of Parcel Wrapper? Yes, not currently available Full Code 06/08/2019 4:36 AM 06/14/2019 4:10 PM This order reflects the patients wishes and were consensually agreed upon. Question Answer Comments Discussion of Advance Directives occurred with: Not Discussed Does the patient have a Living Will? No Does the patient have Health Care Power of Parcel Wrapper? No Healthcare Agents on File Name Relationship [facility] Omar Lyle Adult Child [facility] re Agent Xi Lyle Adult Child [facility] Care Agent Care Teams Braker Passenger Train Relationship Specialty Start Date End Date Sherry Maya DO [address] [place] [address] PCP - General Family Medicine 11/12/11 documented as of this encounter
--- OUTSIDE RECORDS SUMMARY | 2023-05-19 00:31 | External Medical Summary | Summary of Care ---
Author Name Unknown Organization [facility] Address [address] [place] [address] Phone [phone] Care Team Providers Care Five Piece Expansion Maker Hand Name Role Phone Sherry Maya DO Primary Care Provider + [phone] Reason for Referral * Evaluate & Treat - Unlimited Visits (Within 10 days (routine)) - Authorized Specialty Diagnoses / Procedures Referred By Magdy clark Referred To Contact HOME CARE / Home Care Diagnoses S/P BKA (below knee amputation) unilateral, left (HCC) Sherry Maya DO [address] [place] [address] Referral ID Status Reason Start Date Expiration Date Visits Requested Visits Authorized [id number] Authorized Specialty Services Required 04/30/2023 999 999 Question Answer Referral Priority Within 10 days (routine) Where should this appointment be scheduled? Jessica Comments Documentation of Hhmf-wa-Wcnw Encounter Addendum Patient Name: Ben Lyle I certify that this patient is under my care and that I, or a nurse practitioner or physician's press operator assistant working with me, had a tora-mv-viwp encounter that meets the physician gtls-wi-rdax encounter requirements with this patient on: The encounter with the patient was in whole, or in part, for the following medical condition, which is the primary reason for home health care (List medical condition): Gait dysfunction I certify that, based on my findings, the following services are medically necessary home health services: Nursing and Physical Therapy To provide the following care/treatments: (All hospitalists not following the patient after discharge should complete this section): Primary Care Physician to follow home care plan of care after discharge: My clinical findings support the need for the above services because: Further, I certify that my clinical findings support that this patient is homebound (i.e. Absences from home require considerable and taxing effort and are for medical reasons or orthodoxy services or infrequently or of short duration when for other reason) because: Physician Signature: Date of Signature: Physician Printed Name: Helen Woods RN Reason for Visit * Reason Onset Date Comments Order Request 04/30/2023 Encounter Details Date Type Department Care Team (Late st Contact Info) Description 04/30/2023 Youth Counselor Telephone Care Coordination and Integration [address] [place] [address] Helen Woods RN [address] [place] [address] Order Request Allergies Active Allergy Reactions Criticality Noted Date [...] Patient not taking.Reported on 04/09/2023 Glucose Blood (ybuyUCH VERIO) STRP USE TO TEST BLOOD GLUCOSE 8 TIMES A DAY 800 Strip 3 03/18/2019 Active Insulin Aspart 100 UNIT/ML Injection Solution Inject under the skin. 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 Project # [id number], ADMINISTRATIVE CLERK: Ben Hoover MD. CRC: DEBORAH Back. SUMMARY: To test the hypothesis that Evacetrapib 130 mg, in comparison to placebo, reduces the risk of major adverse coronary events in high-risk vascular disease patients. CONTACTS: During normal business hours, contact study staff at ; after hours Dining Room Host/Hostess via the [facility] hospital press brake operator [phone]. 24-hour Global Study Helpline: [phone]. Lipid levels should not be ordered/obtained while this subject is in the Accelerate study. Lipids are being managed in a blinded fashion. If lipid levels are inadvertently obtained, it is important that test results are NOT provided to the patient, study doctor, camp coordinator, or other study team members. Restricted meds while in the study: 1) niacin > 250 mg, 2) gemfibrozil with a potent [id number]. NINA on CPAP 06/28/2012 01/31/2020 Overview: 06/28/12 [...] Telephone Encounter - Helen Woods RN - 04/30/2023 2:43 PM EST Physical therapy orders faxed to [facility] Helen Woods RN * Telephone Encounter - Helen Woods RN - 04/30/2023 1:29 PM EST Ben Velasco calls in today stating that he is now able to get his prosthetic on, stating to build up wearing time, says he is feeling weak & he would like to get some physical therapy in the home. I verified that [facility] can provide this service-can you please sign the attached order & I will fax it to them thanks Helen Woods, RN documented in this encounter Plan of Treatment Upcoming Encounters Date Type Department Care Team (Late st Contact Info) Description 05/14/2023 1:30 PM EST Telemedicine [facility], [place] [address] [place] [address] Carolee Manriquez PA-C [address] [place] [address] Edna Baum, Community Health Operation Manager [address] [place] [address] Scheduled Procedures Name Priority Associated Diagnoses Date/Ti me COLONOSCOPY FLEXIBLE PROXIMAL DIAGNOSTIC Recall History of colon polyps Scheduled Referrals Name Type Priority Associated Diagnoses Orde r Schedule HOME HEALTH REFERRAL OP Referral Within 10 days (routine) S/P BKA (below knee amputation) unilateral, left (HCC) Ordered: 04/30/2023 Health Maintenance Due Date Last Done Comments Depression Screening 08/16/2022 08/16/2021 Diabetic Foot Exam 08/16/2022 08/16/2021, 0 05/02/2020, 11/08/2018, Additional history exists CKD PHOS USE SMARTSET 96666 11/06/202210/25, 09/12/2020, 07/12/2020, Additional history exists COVID-19 [...] Additional history exists CKD HGB USE SMARTSET 24614 04/15/202404/15, 04/15/2023, 12/24/2022, Additional history exists DTaP,Tdap,and [...] S/P BKA (below knee amputation) unilateral, left (HCC)- Primary documented in this encounter Advance [...] the patient have Health Care Power of Waterproofing Supervisor? No Full Code 12/05/2019 3:06 PM 12/05/2019 [...] the patient have Health Care Power of Waterproofing Supervisor? Yes, not currently available Full Code 06/08/2019 4:36 AM 06/14/2019 4:10 PM This order reflects the patients wishes and were consensually agreed upon. Question Answer Comments Discussion of Advance Directives occurred with: Not Discussed Does the patient have a Living Will? No Does the patient have Health Care Power of Waterproofing Supervisor? No Healthcare Agents on File Name Relationship Healthcare Agent Relationshi p Communication Omar Lyle Adult Child [facility] re Agent [facility] Care Agent Care Teams Five Piece Expansion Maker Hand Relationship Specialty Start Date End Date Sherry Maya DO [address] [place], [place] [phone] PCP - General Family Medicine 11/12/11 documented as of this encounter
--- OUTSIDE RECORDS SUMMARY | 2023-05-19 00:31 | External Medical Summary ---
Author Name Unknown Address Unknown Organization K01:[facility] - [address] [place] [address] Laboratory Report Ordering Provider Test Date Status ALIE ROPER 04/29/2023 08:02:00 Final Standing order for pt/inr. < br/>Please draw pt/inr every 1 to 4 weeks as requested
Results to [facility]

Warfarin Therapy
INR: 2.0-3.0 conventional anticoagulation
INR: 2.5-3.5 high intensity anticoagulation Observation Date Value Abnormality Reference (Units ) Status PT 04/29/2023 08:02:00 19.6 Above high normal 11 .6-15.2 (seconds) Final INR 04/29/2023 08:02:00 1.6 Above high normal 0. 8-1.2 Final Performing Location [facility] - [address] [facility] [address]
--- OUTSIDE RECORDS SUMMARY | 2023-05-19 00:31 | External Medical Summary | Summary of Care ---
Author Name Unknown Organization [facility] Address [address] [place] [address] Phone [phone] Care Team Providers Care Principal Solutions Architect Name Role Phone Sherry Maya DO Primary Care Provider + [phone] Reason for Referral * Evaluate & Treat - Unlimited Visits (Within 10 days (routine)) - Authorized Specialty Diagnoses / Procedures Referred By Magdy clark Referred To Contact HOME CARE / Home Care Diagnoses S/P BKA (below knee amputation) unilateral, left (HCC) Sherry Maya DO [address] [place] [address] Referral ID Status Reason Start Date Expiration Date Visits Requested Visits Authorized [id number] Authorized Specialty Services Required 04/30/2023 999 999 Question Answer Referral Priority Within 10 days (routine) Where should this appointment be scheduled? Jessica Comments Documentation of Uiga-ru-Ofmw Encounter Addendum Patient Name: Ben Lyle I certify that this patient is under my care and that I, or a nurse practitioner or physician's nursing home assistant administrator working with me, had a upws-td-kdtg encounter that meets the physician qjxp-kq-tpzq encounter requirements with this patient on: The [...] effort and are for medical reasons or christianity services or infrequently or of short duration when for other reason) because: Physician Signature: Date of Signature: Physician Printed Name: Helen Woods RN Reason for Visit * Reason Onset Date Comments Order Request 04/30/2023 Encounter Details Date Type Department Care Team (Late st Contact Info) Description 04/30/2023 Set Up Machinist Telephone Care Coordination and Integration [address] [place] [address] Helen Woods RN [address] [place] [address] Order Request Allergies Active Allergy Reactions Criticality [...] Patient not taking.Reported on 04/09/2023 Glucose Blood (PaylocityUCH VERIO) STRP USE TO TEST BLOOD GLUCOSE 8 TIMES A DAY 800 Strip 3 03/18/2019 Active Insulin Aspart 100 UNIT/ML Injection Solution Inject under the skin. 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 Project # [id number], SURVEYOR GEODETIC: Ben Hoover MD. CRC: DEBORAH Back. SUMMARY: To test the hypothesis that Evacetrapib 130 mg, in comparison to placebo, reduces the risk of major adverse coronary events in high-risk vascular disease patients. CONTACTS: During normal business hours, contact study staff at ; after hours Educational Resource Center Teacher via the [facility] hospital scrubbing machine operator [phone]. 24-hour Global Study Helpline: [phone]. Lipid levels should not be ordered/obtained while this subject is in the Accelerate study. Lipids are being managed in a blinded fashion. If lipid levels are inadvertently obtained, it is important that test results are NOT provided to the patient, study doctor, grant coordinator, or other study team members. Restricted meds while in the study: 1) niacin > 250 mg, 2) gemfibrozil with a potent [id number]. NINA on CPAP 06/28/2012 01/31/2020 Overview: 06/28/12 [...] & above, IM , (FluLaval or Fluzone) 01/23/2023,02/12/2022,04/05/2021,0904/2019,01/26/2019 Seasonal Influenza, Quadriva lent, No Preserve, IM [...] therapy in the home. I verified that [facility] can provide this service-can you please sign the attached order & I will fax it to them thanks Helen Woods RN documented in this encounter Plan of Treatment Upcoming Encounters Date Type Department Care Team (Late st Contact Info) Description 05/14/2023 1:30 PM EST Telemedicine [facility] [place] [address] Carolee Manriquez PA-C [address] [place] [address] Edna Baum, Community Health Safe And Vault Service Mechanic [address] [facility] [address] [place] [address] Scheduled Procedures Name Priority Associated Diagnoses Date/Ti [...] Additional history exists CKD PHOS USE SMARTSET 97395 11/06/202210/25, 09/12/2020, 07/12/2020, Additional history exists COVID-19 Vaccine (2022- season) 2022 05/15/2021, 10/04/2020, 09/06/2020 COLONOSCOPY-EVERY 3 YRS AGES 18-100 06/01/2023 06/01/2020, 11/13/2015, 04/03/2015 Diabetic Eye Exam 06/06/2023 06/06/2022, , 06/06/2022, Additional history exists TSH 08/09/2023 08/08/2022, 07/26, 11/15/2020, Additional history exists Albumin/Creatinine Ratio 08/16/20232 023, 11/06/2021, 07/28/2018, Additional history exists HbA1c 09/26/2023 03/27/2023, 07/26, 06/10/2022, Additional history exists GFR 10/15/2023 04/15/2023, 12/04/2022, 12/24/2022, Additional history exists CKD HGB USE SMARTSET 59955 04/15/202404/15, 04/15/2023, 12/24/2022, Additional history exists DTaP,Tdap,and [...] the patient have Health Care Power of Asphalt Surface Heater Operator? No Full Code 12/05/2019 3:06 PM 12/05/2019 [...] the patient have Health Care Power of Asphalt Surface Heater Operator? Yes, not currently available Full Code 06/08/2019 4:36 AM 06/14/2019 4:10 PM This order reflects the patients wishes and were consensually agreed upon. Question Answer Comments Discussion of Advance Directives occurred with: Not Discussed Does the patient have a Living Will? No Does the patient have Health Care Power of Asphalt Surface Heater Operator? No Healthcare Agents on File Name Relationship Healthcare Agent Relationshi p Communication Omar Lyle Adult Child [facility] re Agent Xi Lyle Adult Child [facility] Care Agent Care Teams Principal Solutions Architect Relationship Specialty Start Date End Date Sherry Maya DO [address] [place] [address] PCP - General Family Medicine 11/12/11 documented as of this encounter
--- OUTSIDE RECORDS SUMMARY | 2023-05-19 00:31 | External Medical Summary | Summary of Care ---
Author Name Unknown Organization [facility] Address [address] [place] [address] Phone [phone] Care Team Providers Care Olap Developer Name Role Phone Sherry Maya DO Primary Care Provider [phone] Reason for Visit * Reason Onset Date Comments Muscle Cramps 04/23/2023 Encounter Details Date Type Department Care Team (Late st Contact Info) Description 04/23/2023 Crating And Moving Estimator Telephone Care Coordination and Integration [address], [place] [phone] Helen Woods RN [address], [place] [phone] Muscle Cramps Allergies Active Allergy Reactions Criticality Noted Date [...] Patient not taking.Reported on 04/09/2023 Glucose Blood (KIHEITAITOUCH VERIO) STRP USE TO TEST BLOOD GLUCOSE [...] Active WalkerIndications:Oste omyelitis of foot, left, acute ([facility]),Diabetic polyneuropathy associated with diabetes mellitus due to underlying condition ([facility]),Ulcer of right foot with necrosis of muscle ([facility]),Right knee pain, unspecified chronicity,Heart failure, [...] Acti ve Vitamin D (Ergocalciferol) 1.25 MG (55213 UT) Oral Capsule (Drisdol) take 1 capsule [...] [place], goal below 140/90,PAF (paroxysmal atrial fibrillation) ([facility]) Take 2 tablets (40mg) in [...] TabletIndications:S/P BKA (below knee amputation) unilateral, left ([facility]) Take 1 Tablet by mouth [...] Pain, Severe. 60 Tablet 0 04/18/2023 Active documented as of this encounter (statuses [...] Overview: Added automatically from request for surgery [id number] 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 [...] Silent myocardial infarction 03/23/2013 11/08/2018 Accelerate Clinical Trial*[id number] 01/24/2013 05/16/2015 Overview: ACCELERATE STUDY. Project # [id number], DENTAL APPLIANCE REPAIRER: Ben Hoover MD. CRC: DEBORAH Back. SUMMARY: To test the hypothesis that Evacetrapib 130 mg, in comparison to placebo, reduces the risk of major adverse coronary events in high-risk vascular disease patients. CONTACTS: During normal business hours, contact study staff at ; after hours Drawer In Jacquard Loom via the [facility] hospital paper cone drying machine operator [phone]. 24-hour Global Study Helpline: [phone]. Lipid levels should not be ordered/obtained while this subject is in the Accelerate study. Lipids are being managed in a blinded fashion. If lipid levels are inadvertently obtained, it is important that test results are NOT provided to the patient, study doctor, revenue coordinator, or other study team members. Restricted meds while in the study: 1) niacin > 250 mg, 2) gemfibrozil with a potent [id number]. NINA on CPAP 06/28/2012 01/31/2020 Overview: 06/28/12 [...] message for patient to make him aware Helen Woods RN * Telephone Encounter - Sherry Maya DO - 04/24/2023 2:01 PM EST Pls see previous msg about muscle relaxer, cannot combine with the vicodin and tramadol * Telephone Encounter - Helen Woods RN - 04/23/2023 10:[address] Maya, I spoke with Ben today, he says he is having some muscle cramps/spasms to the left side of his torso that goes to his left hip & upper thigh. Patient asking if a muscle relaxant can be ordered, please send any mediation to [facility] in [place] thanks Helen Woods RN documented in this encounter Plan of Treatment Upcoming Encounters Date Type Department Care Team (Late st Contact Info) Description 04/29/2023 10:40 AM EST Laboratory Lab Mobile Phlebotomy [facility] [address] [place] [address] [facility] Mobile Home Draw [address] [place] [address] 05/01/2023 6:00 AM EST Anticoagulation Pharmacy Call Center [address] [place] [address] [facility], [facility] [address] [place] [address] 05/14/2023 1:30 PM EST [facility] [address] [place] [address] Carolee Manriquez PA-C [address] [place] [address] Edna Baum, Community Health Art Psychotherapist [address] [place] [address] Scheduled Procedures Name Priority Associated Diagnoses Date/Ti me COLONOSCOPY FLEXIBLE PROXIMAL DIAGNOSTIC Recall History of colon polyps Health Maintenance Due Date Last Done Comments Depression Screening 08/16/2022 08/16/2021 Diabetic Foot Exam 08/16/2022 08/16/2021, 0 05/02/2020, 11/08/2018, Additional history exists CKD PHOS USE SMARTSET 80316 11/06/202210/25, 09/12/2020, 07/12/2020, Additional history exists COVID-19 [...] Additional history exists CKD HGB USE SMARTSET 97342 04/15/202404/15, 04/15/2023, 12/24/2022, Additional history exists DTaP,Tdap,and [...] the patient have Health Care Power of Cattle Sorter? No Full Code 12/05/2019 3:06 PM 12/05/2019 [...] the patient have Health Care Power of Cattle Sorter? Yes, not currently available Full Code 06/08/2019 4:36 AM 06/14/2019 4:10 PM This order reflects the patients wishes and were consensually agreed upon. Question Answer Comments Discussion of Advance Directives occurred with: Not Discussed Does the patient have a Living Will? No Does the patient have Health Care Power of Cattle Sorter? No Healthcare Agents on File Name Relationship Healthcare Agent Relationshi p Communication Omar Lyle Adult Child [facility] re Agent Xi Ontiverosrett Adult Child Health Care Agent Care Teams Olap Developer Relationship Specialty Start Date End Date Sherry Maya DO [address] [place] [address] PCP - General Family Medicine 11/12/11 documented as of this encounter
--- OUTSIDE RECORDS SUMMARY | 2023-05-19 00:32 | External Medical Summary | Summary of Care ---
Author Name Unknown Organization [facility] Address [address] [place] [address] Phone [phone] Care Team Providers Care Jig Builder Name Role Phone Sherry Maya DO Primary Care Provider [phone] Reason for Visit * Reason Onset Date Comments Muscle Cramps 04/23/2023 Encounter Details Date Type Department Care Team (Late st Contact Info) Description 04/23/2023 Seam Steamer Telephone Care Coordination and Integration [address] [place], [place] [phone] Helen Woods, ARMAND [address] [place], [place] [phone] Muscle Cramps Allergies Active Allergy Reactions Criticality Noted Date Comments Benzonatate 12/08/2016 choking Keyanna Pedraza Other (Please comment) High 04/10/20 09 Choking documented as of this encounter (statuses as of 04/24/2023) Medications Medication Sig Dispensed Refills Start Date [...] Patient not taking.Reported on 04/09/2023 Glucose Blood (Insception BiosciencesTOUCH VERIO) STRP USE TO TEST BLOOD GLUCOSE [...] Active WalkerIndications:Oste omyelitis of foot, left, acute ([facility]),Diabetic polyneuropathy associated with diabetes mellitus due to underlying condition ([facility]),Ulcer of right foot with necrosis of muscle ([facility]),Right knee pain, unspecified chronicity,Heart failure, systolic, due [...] Acti ve Vitamin D (Ergocalciferol) 1.25 MG (16922 UT) Oral Capsule (Drisdol) take 1 capsule [...] [place], goal below 140/90,PAF (paroxysmal atrial fibrillation) ([facility]) Take 2 tablets (40mg) in AM [...] TabletIndications:S/P BKA (below knee amputation) unilateral, left ([facility]) Take 1 Tablet by mouth every [...] as of this encounter (statuses as of 04/24/2023) Active Problems Problem Noted Date Diagnosed Date [...] Overview: Added automatically from request for surgery [id number] 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 [...] as of this encounter (statuses as of 04/24/2023) Resolved Problems Problem Noted Date Diagnosed Date [...] Silent myocardial infarction 03/23/2013 11/08/2018 Accelerate Clinical Trial*[id number] 01/24/2013 05/16/2015 Overview: ACCELERATE STUDY. Project # [id number], HYGIENE COORDINATOR: Ben Hoover MD. CRC: DEBORAH Back. SUMMARY: To test the hypothesis that Evacetrapib 130 mg, in comparison to placebo, reduces the risk of major adverse coronary events in high-risk vascular disease patients. CONTACTS: During normal business hours, contact study staff at ; after hours Product Director via the [facility] hospital foreman or supervisor and operator [phone]. 24-hour Global Study Helpline: [phone]. Lipid levels should not be ordered/obtained while this subject is in the Accelerate study. Lipids are being managed in a blinded fashion. If lipid levels are inadvertently obtained, it is important that test results are NOT provided to the patient, study doctor, military education coordinator, or other study team members. Restricted meds while in the study: 1) niacin > 250 mg, 2) gemfibrozil with a potent [id number]. NINA on CPAP 06/28/2012 01/31/2020 Overview: 06/28/12 [...] as of this encounter (statuses as of 04/24/2023) Immunizations Name Administration Dates Next Due COVID-19 [...] encounter Miscellaneous Notes * Telephone Encounter - Sherry Maya DO [...] please send any mediation to [facility] in [place] thanks Helen Woods RN documented in this encounter Plan of Treatment Upcoming Encounters Date Type Department Care Team (Late st Contact Info) Description 04/29/2023 10:40 AM EST Laboratory Lab Mobile Phlebotomy [facility] [address] [place] [address] [facility] Mobile Home Draw [address], [place] [phone] 05/14/2023 1:30 PM EST [facility]medicine [facility] [place] [address] [place] [address] Carolee Manriquez PA-C [address] [place] [address] Edna Baum, Community Health Squirrel Man [address] [place] [address] Scheduled Procedures Name Priority Associated Diagnoses Date/Ti me COLONOSCOPY FLEXIBLE PROXIMAL DIAGNOSTIC Recall History of colon polyps Health Maintenance Due Date Last Done Comments Depression Screening 08/16/2022 08/16/2021 Diabetic Foot Exam 08/16/2022 08/16/2021, 0 05/02/2020, 11/08/2018, Additional history exists CKD PHOS USE SMARTSET 67691 11/06/202210/25, 09/12/2020, 07/12/2020, Additional history exists COVID-19 [...] Additional history exists CKD HGB USE SMARTSET 20054 04/15/202404/15, 04/15/2023, 12/24/2022, Additional history exists DTaP,Tdap,and [...] the patient have Health Care Power of [place]? No Full Code 12/05/2019 3:06 PM 12/05/2019 [...] the patient have Health Care Power of [place]? Yes, not currently available Full Code 06/08/2019 4:36 AM 06/14/2019 4:10 PM This order reflects the patients wishes and were consensually agreed upon. Question Answer Comments Discussion of Advance Directives occurred with: Not Discussed Does the patient have a Living Will? No Does the patient have Health Care Power of [place]? No Healthcare Agents on File Name Relationship Healthcare Agent [employer] p Communication Omar Lyle Adult Child [facility] re Agent Xi Lyle Adult Child [facility] Care Agent Care Teams Jig Builder Relationship Specialty Start Date End Date Sherry Maya DO [address], [place] [phone] PCP - General Family Medicine 11/12/11 documented as of this encounter
--- OUTSIDE RECORDS SUMMARY | 2023-05-19 00:32 | External Medical Summary | Summary of Care ---
Author Name Unknown Organization [facility] Address [address] [place] [address] Phone [phone] Care Team Providers Care Food Consultant Name Role Phone Sherry Maya DO Primary Care Provider [phone] Reason for Visit * Reason Comments Dosage Adjustment Via Phone (anticoag Cl inic) Encounter Details Date Type Department Care Team (Latest Contact Info) Description 04/23/2023 6:00 AM EST Anticoagulation Pharmacy Call Center [address] [place] [address] [facility] [address] [place] [address] Chronic deep vein thrombosis (DVT) of proximal vein of left lower extremity (HCC)* Allergies Active Allergy Reactions Criticality Noted Date Comments Benzonatate 12/08/2016 choking Keyanna Pedraza Other (Please comment) High 04/10/20 09 Choking documented as of this encounter (statuses as of 04/23/2023) Medications Medication Sig Dispensed Refills Start Date End Date Status KIT PEREZ MISCIndications:DM type 2, not at goal ([facility]) 3 Box Dosing Unit 1 04/17/2015 Active [...] Patient not taking.Reported on 04/09/2023 Glucose Blood (GlassfulUCH VERIO) STRP USE TO TEST BLOOD GLUCOSE 8 TIMES A DAY 800 Strip 3 03/18/2019 Active Insulin Aspart 100 UNIT/ML Injection Solution Inject under the skin. FOR USE IN PUMP 0 Active [email or web address] Verio Flex System w/Device Kit Use as [...] Acti ve Vitamin D (Ergocalciferol) 1.25 MG (81510 UT) Oral Capsule (Drisdol) take 1 capsule [...] goal below 140/90,PAF (paroxysmal atrial fibrillation) ([facility]) Take 2 tablets (40mg) in AM and [...] as of this encounter (statuses as of 04/23/2023) Active Problems Problem Noted Date Diagnosed Date [...] Overview: Added automatically from request for surgery [id number] 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 [...] as of this encounter (statuses as of 04/23/2023) Resolved Problems Problem Noted Date Diagnosed Date [...] Silent myocardial infarction 03/23/2013 11/08/2018 Accelerate Clinical Trial*[id number] 01/24/2013 05/16/2015 Overview: ACCELERATE STUDY. Project # [id number], ANALYTICAL DATA MINER: Ben Hoover MD. CRC: DEBORAH Back. SUMMARY: To test the hypothesis that Evacetrapib 130 mg, in comparison to placebo, reduces the risk of major adverse coronary events in high-risk vascular disease patients. CONTACTS: During normal business hours, contact study staff at ; after hours Institution Director via the [facility] coagulating bath operator [phone]. 24-hour Global Study Helpline: [phone]. Lipid levels should not be ordered/obtained while this subject is in the Accelerate study. Lipids are being managed in a blinded fashion. If lipid levels are inadvertently obtained, it is important that test results are NOT provided to the patient, study doctor, retail marketing coordinator, or other study team members. Restricted meds while in the study: 1) niacin > 250 mg, 2) gemfibrozil with a potent [id number]. NINA on CPAP 06/28/2012 01/31/2020 Overview: 06/28/12 [...] as of this encounter (statuses as of 04/23/2023) Immunizations Name Administration Dates Next Due COVID-19 [...] as of this encounter Progress Notes * Mychal Garvin PHARM Tech - 04/23/2023 12:50 PM EST Contacts Type Contact Phone/Fax 04/23/2023 12:48 PM EST Phone (Outgoing) Ben Lyle (Self) [phone] (M) Subjective Patient Findings Negatives: Signs/symptoms of thrombosis, Signs/symptoms of bleeding, Change in health, Change in alcohol use, Change in activity, Upcoming invasive procedure, Missed doses, Extra doses, Change in medications, Change in diet/appetite, Bruising Advised patient to contact Anticoagulation Clinic if any unusual bruising or bleeding, recent illness, changes in medication, or questions/concerns. PT/INR results, Coumadin dose instructions, and next PT/INR date communicated as noted by Pharmacist: Yes IGGY Mac 04/23/2023, 12:50 PM * Jaimee Gandhi [facility] - 04/23/2023 8:54 AM EST Images from the original note were not included. Coumadin Clinic (region specific) Objective Current Warfarin Dose As of 04/23/2023 Warfarin maintenance plan: 4 mg (2 mg x 2) every day INR Result As of 04/23/2023 INR goal: 2.0-3.0 INR used for dosin.8 (04/22/2023) Assessment & Plan Warfarin Plan As of 04/23/2023 Full warfarin instructions: 04/23: 6 mg; Otherwise 4 mg every day Next INR check: 04/30/2023 Repeat PT/INR in 1 week(s) Weekly dose: not changed Additional Dosing Information: Description [facility]- AMIO (patient has 5mg and 1mg tabs) Tech to contact patient with dose instructions as noted. Jaimee Gandhi RPh 04/23/2023, 8:54 AM documented in this encounter Plan of Treatment Upcoming Encounters Date Type Department Care Team (Late st Contact Info) Description 04/29/2023 10:40 AM EST Laboratory Lab Mobile Phlebotomy [facility] [address] [place] [address] [facility], [facility] Mobile Home Draw [address] [place] [address] 05/14/2023 1:30 PM EST Telemedicine [facility] [address] [place] [address] Carolee Manriquez PA-C [address] [place] [address] Edna Baum Community Health Clinical Nurse Occupational Medicine [address] [place] [address] Scheduled Procedures Name Priority Associated Diagnoses Date/Ti me COLONOSCOPY FLEXIBLE PROXIMAL DIAGNOSTIC Recall History of colon polyps Health Maintenance Due Date Last Done Comments Depression Screening 08/16/2022 08/16/2021 Diabetic Foot Exam 08/16/2022 08/16/2021, 0 05/02/2020, 11/08/2018, Additional history exists CKD PHOS USE SMARTSET 64396 11/06/202210/25, 09/12/2020, 07/12/2020, Additional history exists COVID-19 [...] Additional history exists CKD HGB USE SMARTSET 12258 04/15/202404/15, 04/15/2023, 12/24/2022, Additional history exists DTaP,Tdap,and [...] the patient have Health Care Power of Door Hanger? No Full Code 12/05/2019 3:06 PM 12/05/2019 [...] the patient have Health Care Power of Door Hanger? Yes, not currently available Full Code 06/08/2019 4:36 AM 06/14/2019 4:10 PM This order reflects the patients wishes and were consensually agreed upon. Question Answer Comments Discussion of Advance Directives occurred with: Not Discussed Does the patient have a Living Will? No Does the patient have Health Care Power of Door Hanger? No Healthcare Agents on File Name Relationship Healthcare Agent Relationshi p Communication Omar Valdo Adult Child [facility] re Agent Xi Valdo Adult [facility] Care Agent Care Teams Food Consultant Relationship Specialty Start Date End Date Sherry Maya DO [address] [place] [address] PCP - General Family Medicine 11/12/11 documented as of this encounter
--- OUTSIDE RECORDS SUMMARY | 2023-05-19 00:32 | External Medical Summary | Summary of Care ---
Author Name Unknown Organization [facility] Address [address] [place] [address] Phone [phone] Care Team Providers Care Associate Relations Specialist Name Role Phone Sherry Maya DO Primary Care Provider [phone] Reason for Visit * Reason Onset Date Comments Wound Care 04/23/2023 Encounter Details Date Type Department Care Team (Late st Contact Info) Description 04/23/2023 Real Estate Economist Telephone Care Coordination and Integration [address], [place] [phone] Helen Woods, ARMAND [address], [place] [phone] Wound Care Allergies Active Allergy Reactions Criticality [...] Patient not taking.Reported on 04/09/2023 Glucose Blood (Surreal GamesTOUCH VERIO) STRP USE TO TEST BLOOD GLUCOSE [...] Active WalkerIndications:Oste omyelitis of foot, left, acute ([facility]),Diabetic polyneuropathy associated with diabetes mellitus due to underlying condition ([facility]),Ulcer of right foot with necrosis of muscle ([facility]),Right knee pain, unspecified chronicity,Heart failure, [...] below 100,DM type 2, not at goal ([facility]),Diabetic polyneuropathy associated with type 1 [...] Acti ve Vitamin D (Ergocalciferol) 1.25 MG (98470 UT) Oral Capsule (Drisdol) take 1 capsule [...] polyneuropathy associated with type 2 diabetes mellitus ([facility]) Take 1 Capsule by mouth [...] goal below 140/90,PAF (paroxysmal atrial fibrillation) ([facility]) Take 2 tablets (40mg) in [...] BKA (below knee amputation) unilateral, left ([facility]) Take 1 Tablet by mouth [...] Overview: Added automatically from request for surgery [id number] 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 [...] Silent myocardial infarction 03/23/2013 11/08/2018 Accelerate Clinical Trial*[id number] 01/24/2013 05/16/2015 Overview: ACCELERATE STUDY. Project # [id number], PROMOTION PRODUCER: Ben Hoover MD. CRC: DEBORAH Back. SUMMARY: To test the hypothesis that Evacetrapib 130 mg, in comparison to placebo, reduces the risk of major adverse coronary events in high-risk vascular disease patients. CONTACTS: During normal business hours, contact study staff at ; after hours Passenger Service Supervisor via the [facility] hospital head mva reactor operator [phone]. 24-hour Global Study Helpline: [phone]. Lipid levels should not be ordered/obtained while this subject is in the Accelerate study. Lipids are being managed in a blinded fashion. If lipid levels are inadvertently obtained, it is important that test results are NOT provided to the patient, study doctor, district sales coordinator, or other study team members. Restricted meds while in the study: 1) niacin > 250 mg, 2) gemfibrozil with a potent [id number]. NINA on CPAP 06/28/2012 01/31/2020 Overview: 06/28/12 [...] Maya DO - 04/24/2023 2:03 PM EST Zaheer sent * Telephone Encounter - Helen Woods RN - 04/23/2023 1:51 PM EST Cee Velasco from [facility] calls in to report that she went [...] for patient. Please send any medications to [facility] in [place] thanks Helen Woods RN documented in this encounter Plan of Treatment Upcoming Encounters Date Type Department Care Team (Late st Contact Info) Description 04/29/2023 10:40 AM EST Laboratory Lab Mobile Phlebotomy [facility] [address] [place] [address] [facility], [facility] Mobile Home Draw [address] [place] [address] 05/14/2023 1:30 PM EST Telemedicine [facility] [place] [address] [place] [address] Carolee Manriquez PA-C [address] [place] [address] Edna Baum, Community Health Faro Dealer [address] [place] [address] Scheduled Procedures Name Priority Associated Diagnoses Date/Ti me COLONOSCOPY FLEXIBLE PROXIMAL DIAGNOSTIC Recall History of colon polyps Health Maintenance Due Date Last Done Comments Depression Screening 08/16/2022 08/16/2021 Diabetic Foot Exam 08/16/2022 08/16/2021, 0 05/02/2020, 11/08/2018, Additional history exists CKD PHOS USE SMARTSET 93662 11/06/202210/25, 09/12/2020, 07/12/2020, Additional history exists COVID-19 Vaccine ( season) 2022 05/15/2021, 10/04/2020, 09/06/2020 COLONOSCOPY-EVERY 3 YRS AGES 18-100 06/01/2023 06/01/2020, 11/13/2015, 04/03/2015 Diabetic Eye Exam 06/06/2023 06/06/2022, , 06/06/2022, Additional history exists TSH 08/09/2023 08/08/2022, 07/26, 11/15/2020, Additional history exists Albumin/Creatinine Ratio 08/16/202308/15/ 023, 11/06/2021, 07/28/2018, Additional history exists HbA1c 09/26/2023 03/27/2023, 07/26, 06/10/2022, Additional history exists GFR 10/15/2023 04/15/2023, 12/04/2022, 12/24/2022, Additional history exists CKD HGB USE SMARTSET 42944 04/15/202404/15, 04/15/2023, 12/24/2022, Additional history exists DTaP,Tdap,and [...] the patient have Health Care Power of Shipyard Painter Apprentice? No Full Code 12/05/2019 3:06 PM 12/05/2019 [...] the patient have Health Care Power of Shipyard Painter Apprentice? Yes, not currently available Full Code 06/08/2019 4:36 AM 06/14/2019 4:10 PM This order reflects the patients wishes and were consensually agreed upon. Question Answer Comments Discussion of Advance Directives occurred with: Not Discussed Does the patient have a Living Will? No Does the patient have Health Care Power of Shipyard Painter Apprentice? No Healthcare Agents on File Name Relationship Healthcare Agent [facility] p Communication Omar Mckeont Adult Child [facility] re Agent Xi Ontiverosrett Adult Child [facility] Care Agent Care Teams Associate Relations Specialist Relationship Specialty Start Date End Date Sherry Maya DO [address] [place] [address] PCP - General Family Medicine 11/12/11 documented as of this encounter
--- OUTSIDE RECORDS SUMMARY | 2023-05-19 00:32 | External Medical Summary | Summary of Care ---
Author Name Unknown Organization [facility] Address [address] [place] [address] Phone [phone] Care Team Providers Care Nursing Home Manager Name Role Phone David Siegel DO Primary Care Provider Reason for Visit * Reason Onset Date Comments Medication Refill 04/09/2023 Encounter Details Date Type Department Care Team (Late st Contact Info) Description 04/09/2023 Refill [place] [address] [place] [address] David Siegel DO [address] [place] [address] Ischemic cardiomyopathy Allergies Active Allergy Reactions Criticality Noted Date Comments Benzonatate 12/08/2016 choking Keyanna Pedraza Other (Please comment) High 04/10/20 09 Choking documented as of this encounter (statuses as of 04/23/2023) Medications Medication Sig Dispensed Refills Start Date End Date Status ONEMALATHI PEREZ MISCIndications:DM type 2, not at goal (HCC) 3 Box Dosing Unit 1 5 Active [...] Patient not taking.Reported on 04/09/2023 Glucose Blood ([employer] VERIO) STRP USE TO TEST BLOOD GLUCOSE 8 TIMES A DAY 800 Strip 3 9 Active Insulin Aspart 100 UNIT/ML Injection Solution Inject under the skin. FOR USE IN PUMP 0 Active VelteoToGreengate Power Verio Flex System w/Device Kit Use as [...] 2 Active Vitamin D (Ergocalciferol) 1.25 MG (28744 UT) Oral Capsule (Drisdol) take 1 capsule [...] below 140/90,PAF (paroxysmal atrial fibrillation) ([facility]) Take 2 tablets (40mg) in AM and 20mg in the afternoon. 270 Tablet 3 3 Active Clobetasol Propionate 0.05 % External Cream (Temovate)Indications: Dermatitis APPLY TO AFFECTED AREA(S) TWO TIMES A DAY 15 g 5 3 10/13/19 24 Active Omeprazole 20 MG [...] TabletIndications:S/P BKA (below knee amputation) unilateral, left ([facility]) Take 1 Tablet by mouth every [...] the morning. 200 Tablet 0 3 Active Potassium Chloride Tiffanie ER 10 MEQ Oral Tablet Extended ReleaseIndications:Isc hemic cardiomyopathy Take 2 Tablets by mouth in the morning. 200 Tablet 3 3 04/09/20 23 Discontinu ed(Refill) traMADol HCl 50 MG Oral Tablet (Ultram)Indications:S/ P BKA (below knee amputation) unilateral, left (HCC) Take 1 Tablet by mouth every 6 hours as needed for Pain, Moderate. 30 Tablet 0 3 04/12/20 23 Discontinu ed(Refill) HYDROcodone-Acetaminop hen 5-325 MG Oral TabletIndications:S/P BKA (below knee amputation) unilateral, left (HCC) Take 1 Tablet by mouth every 6 hours as needed for Pain, Severe. 60 Tablet 0 3 04/16/20 23 Discontinu ed(Refill) documented as of this encounter [...] Overview: Added automatically from request for surgery [id number] 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 [...] Silent myocardial infarction 03/23/2013 11/08/2018 Accelerate Clinical Trial*[id number] 01/24/2013 05/16/2015 Overview: ACCELERATE STUDY. Project # [id number], CUSTOMER SALES SPECIALIST: Ben Hoover MD. CRC: DEBORAH Back. SUMMARY: To test the hypothesis that Evacetrapib 130 mg, in comparison to placebo, reduces the risk of major adverse coronary events in high-risk vascular disease patients. CONTACTS: During normal business hours, contact study staff at ; after hours Metal Tile Lather via the [facility] hospital brushing operator [phone]. 24-hour Global Study Helpline: [phone]. Lipid levels should not be ordered/obtained while this subject is in the Accelerate study. Lipids are being managed in a blinded fashion. If lipid levels are inadvertently obtained, it is important that test results are NOT provided to the patient, study doctor, student accounts coordinator, or other study team members. Restricted meds while in the study: 1) niacin > 250 mg, 2) gemfibrozil with a potent [id number]. NINA on CPAP 06/28/2012 01/31/2020 Overview: 06/28/12 [...] Telephone Encounter - David Siegel DO - 04/10/2023 8:32 AM ESTSigned Prescriptions: Disp Refills Potassium Chloride Tiffanie ER 10 MEQ Oral Tab*200 Ta*0 Sig: Take 2 Tablets by mouth in the morning. Authorizing Provider: DAVID SIEGEL * Telephone Encounter - Girma Cifuentes [facility] - 04/10/2023 7:48 AM ESTPending Prescriptions: Disp Refills Potassium Chloride Tiffanie ER 10 MEQ Oral Tab*200 Ta*0 Sig: Take 2 Tablets by mouth in the morning. * Telephone Encounter - Girma Cifuentes [facility] - 04/10/2023 7:42 AM EST Unable to authorize medication refills for pended medication(s) at this time. Part of the protocol criteria used for refill authorization was not satisfied. Patient needs Potassium level within protocol parameters. POTASSIUM Date Value Ref Range Status 03/27/2023 5.6 (H) 3.5 - 5.1 mmol/L Final 12/24/2022 4.7 3.5 - 5.1 mmol/L Final 08/08/2022 4.1 3.5 - 5.1 mmol/L Final From 04/09/23 Telemedicine encounter: 4. Edema, unspecified type Difficult to say if patient has lymphedema due to body habitus. He has increased edema to stump and cannot get his prosthetic on. Advised to double Torsemide with added K X 3 days Repeat CMP ordered, lab appointment 04/13/23 Please advise. Thank You, Girma Oro [facility] Clinical Pharmacist [facility] Services ([facility]PS) (formerly Telepharmacy) 04/10/2023, 7:42 AM * Telephone Encounter - Girma Cifuentes [facility] - 04/10/2023 7:37 AM EST Pending Prescriptions: Disp Refills Potassium Chloride Tiffanie ER 10 MEQ Oral Ta*200 Ta*3 Sig: Take 2 Tablets by mouth in the morning. Last Visit: 01/23/2023 (in office), 06/03/2022 (telemedicine) Next Visit: Visit date not found If no future appointments scheduled, and last appointment is greater than a year ago, please schedule patient for a follow-up appointment Last date the medication was ordered: 05/14/22 Pharmacy: Is this request for a controlled substance? No Urine Drug Screen:No results found. However, due to the size of the patient record, not all encounters were searched. Please check Results Review for a complete set of results. Patient Phone Numbers Labs: Lab Results Component Value Date/Time CREAT 1.2 03/27/2023 08:04 AM CREAT 1.63 (A) 08/07/2021 12:00 AM CREAT 1.8 (H) 05/03/2020 03:17 PM CREAT 0.9 03/14/1996 12:00 PM POTASSIUM 5.6 (H) 03/27/2023 08:04 AM POTASSIUM 4.0 08/07/2021 12:00 AM POTASSIUM 3.9 05/03/2020 03:17 PM POTASSIUM 4.7 03/14/1996 12:00 PM TSH 2.43 08/08/2022 07:25 AM TSH 1.914 08/07/2021 12:00 AM TSH 0.66 05/03/2020 03:17 PM LDLCALC 48 02/18/2018 11:21 AM LDLDIRECT 70 08/08/2022 07:25 AM LDLDIRECT 74 01/26/2019 08:02 AM LDLDIRECT 46 11/14/2013 03:12 PM ALT 19 08/08/2022 07:25 AM ALT 20 09/01/2019 02:39 PM ALT 43 03/14/1996 12:00 PM HGBA1C 8.6 (H) 03/27/2023 08:04 AM HGBA1C 8.3 (H) 01/30/2020 01:23 PM HGBA1C 10.2 (H) 03/14/1996 12:00 PM documented in this encounter Plan of Treatment Upcoming Encounters Date Type Department Care Team (Late st Contact Info) Description 04/29/2023 10:40 AM EST Laboratory Lab Mobile Phlebotomy [facility] [address] [place] [address] [facility] Mobile Home Draw [address] [place] [address] 05/14/2023 1:30 PM EST Telemedicine [facility], [place] [address] [place] [address] Carolee Manriquez PA-C [address] [place] [address] Edna Baum, Community Health Hardness Tester [address] [place] [address] Scheduled Procedures Name Priority Associated Diagnoses Date/Ti me COLONOSCOPY FLEXIBLE PROXIMAL DIAGNOSTIC Recall History of colon polyps Health Maintenance Due Date Last Done Comments Depression Screening 08/16/2022 08/16/2021 Diabetic Foot Exam 08/16/2022 08/16/2021, 0 05/02/2020, 11/08/2018, Additional history exists CKD PHOS USE SMARTSET 39379 11/06/202210/25, 09/12/2020, 07/12/2020, Additional history exists COVID-19 [...] Additional history exists CKD HGB USE SMARTSET 91715 04/15/202404/15, 04/15/2023, 12/24/2022, Additional history exists DTaP,Tdap,and [...] as of this encounter Visit Diagnoses Diagnosis Ischemic cardiomyopathy Other specified forms of chronic ischemic heart disease documented in this encounter Advance Directives Latest [...] the patient have Health Care Power of Lieutenant Governor? No Full Code 12/05/2019 3:06 PM 12/05/2019 [...] the patient have Health Care Power of Lieutenant Governor? Yes, not currently available Full Code 06/08/2019 4:36 AM 06/14/2019 4:10 PM This order reflects the patients wishes and were consensually agreed upon. Question Answer Comments Discussion of Advance Directives occurred with: Not Discussed Does the patient have a Living Will? No Does the patient have Health Care Power of Lieutenant Governor? No Healthcare Agents on File Name Relationship Healthcare Agent [facility] p Communication Omar Lyle Adult Child [facility] re Agent Xi Lyle Adult Child [facility] Care Agent Care Teams Nursing Home Manager Relationship Specialty Start Date End Date David Siegel DO [address], [place] [id number] PCP - General Family Medicine 11/12/11 documented as of this encounter
--- OUTSIDE RECORDS SUMMARY | 2023-05-19 00:33 | External Medical Summary ---
Author Name Unknown Address Unknown Organization K01:LABORATORY [facility] - [address] [place] [address] Laboratory Report Ordering Provider Test Date Status ADEN ESTRADA 04/15/2023 08:00:00 Final Observation Date Value Abnormality Reference (Units ) Status WBC, Total 04/15/2023 08:00:00 6.76 4.00-10.8 0 (K/uL) Final RBC 04/15/2023 08:00:00 4.75 4.50-5.25 (M/uL) Final Hemoglobin 04/15/2023 08:00:00 14.4 14.0-16.8 (g/dL) Final Anemia reflex testing trigge rs on a HGB < 12.0 for Females and HGB < 13.0 for Males in accordance with the WHO Anemia Guidelines
Anemia reflex testing triggers on a HGB < 12.0 for Females and HGB < 13.0 for Males in accordance with the WHO Anemia Guidelines HCT 04/15/2023 08:00:00 45.5 40.0-48.4 (%) Final MCV 04/15/2023 08:00:00 95.8 82.0-99.5 (fL) Final MCH 04/15/2023 08:00:00 30.3 27.0-34.0 (pg) Final MCHC 04/15/2023 08:00:00 31.6 32.0-36.0 (g/dL) Final RDW 04/15/2023 08:00:00 15.7 11.5-15.5 (%) Final Platelets 04/15/2023 08:00:00 258 140-400 (K /uL) Final MPV 04/15/2023 08:00:00 10.1 6.6-11.1 ( fL) Final Nucleated erythrocytes/100 leukocytes [Ratio] in Blood by Automated count 04/15/2023 08:00:00 0 <=0 (/100 WBCs) Fi community health Performing Location LABORATORY [facility] - [address] [facility] [address]
--- OUTSIDE RECORDS SUMMARY | 2023-05-19 00:33 | External Medical Summary ---
Author Name Unknown Address Unknown Organization K0G:[facility] [address] [place] [address] Laboratory Report Ordering Provider Test Date Status ALIE ROPER 04/15/2023 08:00:00 Final Standing order for pt/inr. < br/>Please draw pt/inr every 1 to 4 weeks as requested
Results to [facility]

Warfarin Therapy
INR: 2.0-3.0 conventional anticoagulation
INR: 2.5-3.5 high intensity anticoagulation Observation Date Value Abnormality Reference (Units ) Status PT 04/15/2023 08:00:00 46.8 Above high normal 11.6-15.2 (seconds) Final INR 04/15/2023 08:00:00 5.0 Above upper panic limits 0.8-1.2 Final Performing Location [facility] [address] [place] [address]
--- OUTSIDE RECORDS SUMMARY | 2023-05-19 00:33 | External Medical Summary | Summary of Care ---
Author Name Unknown Organization [facility] Address [address] [place] [address] Phone [phone] Care Team Providers Care Door Repairer Bus Name Role Phone Sherry Maya DO Primary Care Provider [phone] Reason for Visit * Reason Onset Date Comments Home Health 04/15/2023 Encounter Details Date Type Department Care Team (Late st Contact Info) Description 04/15/2023 Telephone [facility] [address] [place] [address] Sherry Maya DO [address] [place] [address] Home Health Allergies Active Allergy Reactions Criticality Noted Date Comments Benzonatate 12/08/2016 choking Keyanna Pedraza Other (Please comment) High 04/10/20 09 Choking documented as of this encounter (statuses as of 04/16/2023) Medications Medication Sig Dispensed Refills Start Date [...] Patient not taking.Reported on 04/09/2023 Glucose Blood ([employer] VERIO) STRP USE TO TEST BLOOD GLUCOSE [...] Active WalkerIndications:Oste omyelitis of foot, left, acute ([facility]),Diabetic polyneuropathy associated with diabetes mellitus due to underlying condition ([facility]),Ulcer of right foot with necrosis of muscle ([facility]),Right knee pain, unspecified chronicity,Heart [...] Acti ve Vitamin D (Ergocalciferol) 1.25 MG (50447 UT) Oral Capsule (Drisdol) take 1 capsule [...] TN, goal below 140/90,PAF (paroxysmal atrial fibrillation) ([facility]) Take 2 tablets (40mg) [...] the tramadol). 30 Tablet 0 01/23/2023 Active HYDROcodone-Acetaminop hen 5-325 MG Oral TabletIndications:S/P BKA (below knee amputation) unilateral, left (HCC) Take 1 Tablet by mouth every 6 hours as needed for Pain, Severe. 60 Tablet 0 04/01/2023 Active Cephalexin 500 MG Oral Capsule (Keflex) [...] Pain, Moderate. 30 Tablet 0 04/13/2023 Active documented as of this encounter (statuses as of 04/16/2023) Active Problems Problem Noted Date Diagnosed Date [...] Overview: Added automatically from request for surgery [id number] 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 [...] as of this encounter (statuses as of 04/16/2023) Resolved Problems Problem Noted Date Diagnosed Date [...] Silent myocardial infarction 03/23/2013 11/08/2018 Accelerate Clinical Trial*[id number] 01/24/2013 05/16/2015 Overview: ACCELERATE STUDY. Project # [id number], PRINTING AGENT: Ben Hoover MD. CRC: DEBORAH Back. SUMMARY: To test the hypothesis that Evacetrapib 130 mg, in comparison to placebo, reduces the risk of major adverse coronary events in high-risk vascular disease patients. CONTACTS: During normal business hours, contact study staff at ; after hours Parts Product Analyst via the [facility] hospital planishing hammer operator [phone]. 24-hour Global Study Helpline: [phone]. Lipid levels should not be ordered/obtained while this subject is in the Accelerate study. Lipids are being managed in a blinded fashion. If lipid levels are inadvertently obtained, it is important that test results are NOT provided to the patient, study doctor, park activities coordinator, or other study team members. Restricted meds while in the study: 1) niacin > 250 mg, 2) gemfibrozil with a potent [id number]. NINA on CPAP 06/28/2012 01/31/2020 Overview: 06/28/12 [...] as of this encounter (statuses as of 04/16/2023) Immunizations Name Administration Dates Next Due COVID-19 [...] Telephone Encounter - Helen Woods RN - 04/16/2023 10:28 AM EST See CM note * Telephone Encounter - Sherry Maya DO - 04/16/2023 8:42 AM EST Noted, pls reach out to pt and get dc summary about antibiotics he was discharged on, and he needs to take them or infection will get worse, and condition will worsen. * Telephone Encounter - Jordyn Vivar LPN - 04/15/2023 3:26 PM EST Cee calling from [facility] She stated that they are to see patient M, W, F for wound care-- and he is to put his dogs away as they will not let the nurse come through the gate. Cee stated that he did not put his dog away so this was a missed visit for him and they try to go again on Thursday. Cee stated that he also signed himself out AMA recently from [facility] without r/o osteomyelitis. She also stated that she does not believe that he has picked up oral antibiotics either. documented in this encounter Plan of Treatment Upcoming Encounters Date Type Department Care Team (Late st Contact Info) Description 04/22/2023 6:00 AM EST Anticoagulation Pharmacy Call Center [phone] [place] [address] [facility], [facility] [phone] [facility] [place] [address] 04/22/2023 10:50 AM EST Laboratory Lab Mobile Phlebotomy [facility] [address] [place] [address] [facility] Mobile Home Draw [address], [place] [id number] 05/14/2023 1:30 PM EST Telemedicine [facility] [place] [address] [place] [address] Carolee Manriquez PA-C [address] [place] [address] Edna Baum, Community Health Portable Power Tool Repairer [address] [place] [address] Scheduled Procedures Name Priority Associated Diagnoses Date/Ti me COLONOSCOPY FLEXIBLE PROXIMAL DIAGNOSTIC Recall History of colon polyps Health Maintenance Due Date Last Done Comments Depression Screening 08/16/2022 08/16/2021 Diabetic Foot Exam 08/16/2022 08/16/2021, 0 05/02/2020, 11/08/2018, Additional history exists CKD PHOS USE SMARTSET 03244 11/06/202210/25, 09/12/2020, 07/12/2020, Additional history exists COVID-19 [...] Additional history exists CKD HGB USE SMARTSET 59975 04/15/202404/15, 04/15/2023, 12/24/2022, Additional history exists DTaP,Tdap,and [...] the patient have Health Care Power of Reducing System Operator? No Full Code 12/05/2019 3:06 PM [...] the patient have Health Care Power of Reducing System Operator? Yes, not currently available Full Code 06/08/2019 4:36 AM 06/14/2019 4:10 PM This order reflects the patients wishes and were consensually agreed upon. Question Answer Comments Discussion of Advance Directives occurred with: Not Discussed Does the patient have a Living Will? No Does the patient have Health Care Power of Reducing System Operator? No Healthcare Agents on File Name Relationship Healthcare Agent Relationshi p Communication Omar Lyle Adult Child On [facility] re Agent Xi Mckeont Adult Child [facility] Care Agent Care Teams Door Repairer Bus Relationship Specialty Start Date End Date Sherry Maya DO [address] [place] [address] PCP - General Family Medicine 11/12/11 documented as of this encounter
--- OUTSIDE RECORDS SUMMARY | 2023-05-19 00:33 | External Medical Summary ---
Author Name Unknown Address Unknown Organization K01:LABORATORY [facility] - [address] [facility] [address] Laboratory Report Ordering Provider Test Date Status ADEN ESTRADA 04/15/2023 08:00:00 Final Observation Date Value Abnormality Reference (Units ) Status SYNC LEUKOCYTES IN BLOOD BY AUTOMATED COUNT 04/15/2023 08:00:00 6.76 4.00-10.80 (K/uL) Final Segs 04/15/2023 08:00:00 71.2 40.0-75.0 (%) Final Lymphs % 04/15/2023 08:00:00 13.8 Below low normal 18.0-42.0 (%) Final Monos 04/15/2023 08:00:00 10.9 1.0-11.0 (%) Final Eosinophils 04/15/2023 08:00:00 2.8 0.0-6.0 (%) Final Basos 04/15/2023 08:00:00 1.0 0.0-2.0 (%) Final Immature Granulocyte, Percent 04/15/2023 08:00:00 0.3 0.0-2.0 (%) Final Absolute Segs 04/15/2023 08:00:00 4.81 1.80-7.70 (K/uL) Final Lymphs, absolute 04/15/2023 08:00:00 0.93 Below low normal 1.00-4.80 (K/ul) Final Monos, Abs 04/15/2023 08:00:00 0.74 0.00-1.10 (K/uL) Final Eos, Abs 04/15/2023 08:00:00 0.19 0.00-0.70 (K/uL) Final Basos, Abs 04/15/2023 08:00:00 0.07 0.00-0.20 (K/uL) Final Immature Granulocytes, Number 04/15/2023 08:00:00 0.02 0.00-0.20 (K/uL) Final Performing Location LABORATORY [facility] - [facility] [address] [facility] [address]
--- OUTSIDE RECORDS SUMMARY | 2023-05-19 00:33 | External Medical Summary ---
Author Name Unknown Address Unknown Organization K0G:[facility] [address] [place] [address] Laboratory Report Ordering Provider Test Date Status ADEN ESTRADA 04/15/2023 08:00:00 Final Observation Date Value Abnormality Reference (Units ) Status BUN 04/15/2023 08:00:00 27 Above high normal 6-20 (mg/dL) Final Creatinine 04/15/2023 08:00:00 1.4 Above high normal 0.6-1.2 (mg/dL) Final Glomerular filtration rate/1.73 sq M.predicted [Volume Rate/Area] in Serum, Plasma or Blood by Creatinine-based formula (CKD-EPI) 04/15/2023 08:00:00 60 >=60 (mL/min) Final eGFR is calculated based on the CKD-EPI 2020 equation SODIUM 04/15/2023 08:00:00 137 135-146 (m mol/L) Final Potassium 04/15/2023 08:00:00 4.3 3.5-5.1 (m mol/L) Final Cl 04/15/2023 08:00:00 99 98-107 (mm ol/L) Final CO2 04/15/2023 08:00:00 26 22-32 (mmo l/L) Final Anion gap 04/15/2023 08:00:00 12 7-15 (mmol /L) Final Glucose 04/15/2023 08:00:00 207 Above high normal 70 -120 (mg/dL) Final Albumin 04/15/2023 08:00:00 3.4 Below low normal 3.8 -5.0 (g/dL) Final AST (Aspartate aminotransferase) 04/15/2023 08:00:00 24 10-50 (U/L) Fin al Alk Phos 04/15/2023 08:00:00 117 35-130 (U/ L) Final Bilirubin, Total 04/15/2023 08:00:00 1.2 <=1 .2 (mg/dL) Final Calcium 04/15/2023 08:00:00 9.2 8.4-10.2 ( mg/dL) Final Protein 04/15/2023 08:00:00 7.5 6.0-8.3 (g /dL) Final ALT (Alanine aminotransferase) 04/15/2023 08:00:00 14 10-50 (U/L) Murali anton [facility] [address] [place] [address]
--- OUTSIDE RECORDS SUMMARY | 2023-05-19 00:33 | External Medical Summary | Summary of Care ---
Author Name Unknown Organization [facility] Address [address] [place] [address] Phone [phone] Care Team Providers Care Machine Silver Stripper Name Role Phone Sherry Maya DO Primary Care Provider [phone] Reason for Visit * Reason Onset Date Comments Home Health 04/15/2023 Encounter Details Date Type Department Care Team (Late st Contact Info) Description 04/15/2023 Telephone [facility] [address] [place] [address] Sherry Maya DO [address] [place] [address] Home Health Allergies Active Allergy [...] Patient not taking.Reported on 04/09/2023 Glucose Blood (Altair TherapeuticsTOUCH VERIO) STRP USE TO TEST BLOOD GLUCOSE [...] WalkerIndications:Oste omyelitis of foot, left, acute ([facility]),Diabetic polyneuropathy associated with diabetes mellitus due to underlying condition ([facility]),Ulcer of right foot with necrosis of muscle ([facility]),Right knee pain, unspecified chronicity,Heart failure, systolic, [...] Acti ve Vitamin D (Ergocalciferol) 1.25 MG (08891 UT) Oral Capsule (Drisdol) take 1 capsule [...] goal below 140/90,PAF (paroxysmal atrial fibrillation) ([facility]) Take 2 tablets (40mg) in [...] Overview: Added automatically from request for surgery [id number] 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 [...] Silent myocardial infarction 03/23/2013 11/08/2018 Accelerate Clinical Trial*[id number] 01/24/2013 05/16/2015 Overview: ACCELERATE STUDY. Project # [id number], EVP SALES: Ben Hoover MD. CRC: DEBORAH Back. SUMMARY: To test the hypothesis that Evacetrapib 130 mg, in comparison to placebo, reduces the risk of major adverse coronary events in high-risk vascular disease patients. CONTACTS: During normal business hours, contact study staff at ; after hours Conservation Educator via the [facility] hospital skip operator [phone]. 24-hour Global Study Helpline: [phone]. Lipid levels should not be ordered/obtained while this subject is in the Accelerate study. Lipids are being managed in a blinded fashion. If lipid levels are inadvertently obtained, it is important that test results are NOT provided to the patient, study doctor, sales operations coordinator, or other study team members. Restricted meds while in the study: 1) niacin > 250 mg, 2) gemfibrozil with a potent [id number]. NINA on CPAP 06/28/2012 01/31/2020 Overview: 06/28/12 [...] 04/15/2023 3:26 PM EST Cee calling from [facility] She stated that they are to see patient M, W, F for wound care-- and he is to put his dogs away as they will not let the nurse come through the gate. Cee stated that he did not put his dog away so this was a missed HH visit for him and they try to go again on Thursday. Cee stated that he also signed himself out AMA recently from [facility] without r/o osteomyelitis. She also stated that she does not believe that he has picked up oral antibiotics either. documented in this encounter Plan of Treatment Upcoming Encounters Date Type Department Care Team (Late st Contact Info) Description 04/22/2023 6:00 AM EST Anticoagulation Pharmacy Call Center [address] [facility] [place] [address] [facility], [facility] [address] [facility] [place] [address] 04/22/2023 10:50 AM EST Laboratory Lab Mobile Phlebotomy [facility] [address] [place] [address] [facility], [facility] Mobile Home Draw [address] [place] [address] 05/14/2023 1:30 PM EST Telemedicine [facility], [place] [address] [place] [address] Carolee Manriquez PA-C [address] [place] [address] Edna Baum, Community Health Hydraulic Repairer [address] [place] [address] Scheduled Procedures Name Priority Associated Diagnoses Date/Ti me COLONOSCOPY FLEXIBLE PROXIMAL DIAGNOSTIC Recall History of colon polyps Health Maintenance Due Date Last Done Comments Depression Screening 08/16/2022 08/16/2021 Diabetic Foot Exam 08/16/2022 08/16/2021, 0 05/02/2020, 11/08/2018, Additional history exists CKD PHOS USE SMARTSET 82751 11/06/202210/25, 09/12/2020, 07/12/2020, Additional history exists COVID-19 [...] Additional history exists CKD HGB USE SMARTSET 61833 04/15/202404/15, 04/15/2023, 12/24/2022, Additional history exists DTaP,Tdap,and [...] the patient have Health Care Power of Facing Baster? No Full Code 12/05/2019 3:06 PM 12/05/2019 [...] the patient have Health Care Power of Facing Baster? Yes, not currently available Full Code 06/08/2019 4:36 AM 06/14/2019 4:10 PM This order reflects the patients wishes and were consensually agreed upon. Question Answer Comments Discussion of Advance Directives occurred with: Not Discussed Does the patient have a Living Will? No Does the patient have Health Care Power of Facing Baster? No Healthcare Agents on File Name Relationship Healthcare Agent [facility] Communication Omar Lyle Adult Child [facility] re Agent [facility] Care Agent Care Teams Machine Silver Stripper Relationship Specialty Start Date End Date Sherry Maya DO [address] [facility] [address] PCP - General Family Medicine 11/12/11 documented as of this encounter
--- OUTSIDE RECORDS SUMMARY | 2023-05-19 00:33 | External Medical Summary | Summary of Care ---
Author Name Unknown Organization [facility] Address [address] [place] [facility] [place] [place] [address] Phone [phone] Care Team Providers Care Cardio Tech Name Role Phone Sherry Maya DO Primary Care Provider [phone] Reason for Visit * Reason Onset Date Comments [facility]: Maintenance 04/15/2023 Encounter Details Date Type Department Care Team ([facility] st Contact Info) Description 04/15/2023 Telephone [facility], [facility] [address] [facility] [address] [facility], Nurse [facility] [address] [place] [address] [facility]: Maintenance Allergies Active Allergy Reactions Criticality Noted Date Comments Benzonatate 12/08/2016 choking Keyanna Pedraza Other (Please comment) High 04/10/20 09 Choking documented as of this encounter (statuses as of 04/15/2023) Medications Medication Sig Dispensed Refills Start Date [...] Patient not taking.Reported on 04/09/2023 Glucose Blood (Fusion Antibodies VERIO) STRP USE TO TEST BLOOD GLUCOSE 8 TIMES A DAY 800 Strip 3 03/18/2019 Active Insulin Aspart 100 UNIT/ML Injection Solution Inject under the skin. FOR USE IN PUMP 0 Active Oxford Phamascience GroupToSafeRent Verio Flex System w/Device Kit Use as [...] Acti ve Vitamin D (Ergocalciferol) 1.25 MG (24017 UT) Oral Capsule (Drisdol) take 1 capsule [...] TabletIndications:S/P BKA (below knee amputation) unilateral, left ([facility]) Take 1 Tablet by [...] as of this encounter (statuses as of 04/15/2023) Active Problems Problem Noted Date Diagnosed Date [...] Overview: Added automatically from request for surgery [id number] 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 [...] as of this encounter (statuses as of 04/15/2023) Resolved Problems Problem Noted Date Diagnosed Date [...] right foot 06/28/2019 07/29/2021 Ventricular tachycardia 06/09/2019 0407/2021 Amputated great toe of right foot 04/14/2019 [...] Silent myocardial infarction 03/23/2013 11/08/2018 Accelerate Clinical Trial*[id number] 01/24/2013 05/16/2015 Overview: ACCELERATE STUDY. Project # [id number], LACQUER MIXER: Ben Hoover MD. CRC: DEBORAH Back. SUMMARY: To test the hypothesis that Evacetrapib 130 mg, in comparison to placebo, reduces the risk of major adverse coronary events in high-risk vascular disease patients. CONTACTS: During normal business hours, contact study staff at ; after hours Orthopedically Impaired Teacher via the [facility] hospital kier operator [phone]. 24-hour Global Study Helpline: [phone]. Lipid levels should not be ordered/obtained while this subject is in the Accelerate study. Lipids are being managed in a blinded fashion. If lipid levels are inadvertently obtained, it is important that test results are NOT provided to the patient, study doctor, field care coordinator, or other study team members. Restricted meds while in the study: 1) niacin > 250 mg, 2) gemfibrozil with a potent [id number]. NINA on CPAP 06/28/2012 01/31/2020 Overview: 06/28/12 [...] as of this encounter (statuses as of 04/15/2023) Immunizations Name Administration Dates Next Due COVID-19 [...] encounter Miscellaneous Notes * Telephone Encounter - Kylee Tafoya RN - 04/15/2023 11:09 AM EST Images from the original note were not included. RX request routed to [facility] as follows Patient not [facility] member Medication states patient reported not taking as of 04/09/23 Providers please review and order if desired Kylee Tafoya RN, BSN [facility] regional guideManager Of Creative Services documented in this encounter Plan of Treatment Upcoming Encounters Date Type Department Care Team (Late st Contact Info) Description 04/16/2023 6:00 AM EST Anticoagulation Pharmacy Call Center [address] [facility] [place] [address] [facility] [address] [facility] [place] [address] 05/14/2023 1:30 PM EST [facility]medicine [facility] [place] [address] [place] [address] Carolee Manriquez PA-C [address] [facility] [place] [address] Edna Baum, Community Health Dry Cleaner Helper [address] [place] [address] Scheduled Procedures Name Priority Associated Diagnoses Date/Ti me COLONOSCOPY FLEXIBLE PROXIMAL DIAGNOSTIC Recall History of colon polyps Health Maintenance Due Date Last Done Comments Depression Screening 08/16/2022 08/16/2021 Diabetic Foot Exam 08/16/2022 08/16/2021, 0 05/02/2020, 11/08/2018, Additional history exists CKD PHOS USE SMARTSET 55840 11/06/202210/25, 09/12/2020, 07/12/2020, Additional history exists COVID-19 Vaccine ( season) 2022 05/15/2021, 10/04/2020, 09/06/2020 COLONOSCOPY-EVERY 3 YRS AGES 18-100 06/01/2023 06/01/2020, 11/13/2015, 04/03/2015 Diabetic Eye Exam 06/06/2023 06/06/2022, , 06/06/2022, Additional history exists TSH 08/09/2023 08/08/2022, 07/26, 11/15/2020, Additional history exists Albumin/Creatinine Ratio 08/16/2023 023, 11/06/2021, 07/28/2018, Additional history exists GFR 09/26/2023 03/27/2023, 11/27, 08/08/2022, Additional history exists HbA1c 09/26/2023 03/27/2023, 07/26, 06/10/2022, Additional history exists CKD HGB USE SMARTSET 10619 12/25/202312/24, 08/15/2022, 03/26/2022, Additional history exists DTaP,Tdap,and Td Vaccines (3 [...] the patient have Health Care Power of Forms Designer? No Full Code 12/05/2019 3:06 PM 12/05/2019 [...] the patient have Health Care Power of Forms Designer? Yes, not currently available Full Code 06/08/2019 4:36 AM 06/14/2019 4:10 PM This order reflects the patients wishes and were consensually agreed upon. Question Answer Comments Discussion of Advance Directives occurred with: Not Discussed Does the patient have a Living Will? No Does the patient have Health Care Power of Forms Designer? No Healthcare Agents on File Name Relationship Healthcare Agent [facility] Communication Omar Lyle Adult Child [facility] re Agent Xi Lyle Adult Child Health Care Agent Care Teams Cardio Tech Relationship Specialty Start Date End Date Sherry Maya DO [address] [place] [address] PCP - General Family Medicine 11/12/11 documented as of this encounter
--- OUTSIDE RECORDS SUMMARY | 2023-05-19 00:33 | External Medical Summary | Summary of Care ---
Author Name Unknown Organization [facility] Address [address] [place] [address] Phone [phone] Care Team Providers Care Reactor Kettle Operator Name Role Phone David Siegel DO Primary Care Provider [phone] Reason for Visit * Reason Onset Date Comments Medication Refill 04/16/2023 Encounter Details Date Type Department Care Team (Late st Contact Info) Description 04/16/2023 Refill [place] [address] [place] [address] David Siegel DO [address] [place] [address] S/P BKA (below knee amputation) unilateral, left (HCC) Allergies Active Allergy Reactions Criticality Noted Date Comments Benzonatate 12/08/2016 choking Keyanna Pedraza Other (Please comment) High 04/10/20 09 Choking documented as of this encounter (statuses as of 04/18/2023) Medications Medication Sig Dispensed Refills Start Date End Date Status ONETOUCH LANCJOSIE MISCIndications:DM type 2, not at goal ([facility]) 3 Box Dosing Unit 1 5 Active [...] Patient not taking.Reported on 04/09/2023 Glucose Blood (Glass & Marker VERIO) STRP USE TO TEST BLOOD GLUCOSE 8 TIMES A DAY 800 Strip 3 9 Active Insulin Aspart 100 UNIT/ML Injection Solution Inject under the skin. FOR USE IN PUMP 0 Active vufindToSpotRight Verio Flex System w/Device Kit Use as [...] 2 Active Vitamin D (Ergocalciferol) 1.25 MG (42917 UT) Oral Capsule (Drisdol) take 1 capsule [...] [place], goal below 140/90,PAF (paroxysmal atrial fibrillation) ([facility]) Take 2 tablets (40mg) in [...] the morning. 200 Tablet 0 3 Active traMADol HCl 50 MG Oral Tablet (Ultram)Indications:S/ P BKA (below knee amputation) unilateral, left (HCC) Take 1 Tablet by mouth every 6 hours as needed for Pain, Moderate. 30 Tablet 0 3 Active HYDROcodone-Acetaminop hen 5-325 MG Oral TabletIndications:S/P BKA (below knee amputation) unilateral, left (HCC) Take 1 Tablet by mouth every 6 hours as needed for Pain, Severe. 60 Tablet 0 3 Active HYDROcodone-Acetaminop hen 5-325 MG Oral TabletIndications:S/P BKA (below knee amputation) unilateral, left (HCC) Take 1 Tablet by mouth every 6 hours as needed for Pain, Severe. 60 Tablet 0 3 04/16/20 23 Discontinu ed(Refill) documented as of this encounter (statuses as of 04/18/2023) Active Problems Problem Noted Date Diagnosed Date [...] Overview: Added automatically from request for surgery [id number] 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 [...] as of this encounter (statuses as of 04/18/2023) Resolved Problems Problem Noted Date Diagnosed Date [...] Silent myocardial infarction 03/23/2013 11/08/2018 Accelerate Clinical Trial*[id number] 01/24/2013 05/16/2015 Overview: ACCELERATE STUDY. Project # [id number], SUGAR CANE PLANTING EQUIPMENT OPERATOR: Ben Hoover MD. CRC: DEBORAH Back. SUMMARY: To test the hypothesis that Evacetrapib 130 mg, in comparison to placebo, reduces the risk of major adverse coronary events in high-risk vascular disease patients. CONTACTS: During normal business hours, contact study staff at ; after hours Data Center Manager via the [facility] hospital proofing machine operator [phone]. 24-hour Global Study Helpline: [phone]. Lipid levels should not be ordered/obtained while this subject is in the Accelerate study. Lipids are being managed in a blinded fashion. If lipid levels are inadvertently obtained, it is important that test results are NOT provided to the patient, study doctor, emergency response coordinator, or other study team members. Restricted meds while in the study: 1) niacin > 250 mg, 2) gemfibrozil with a potent [id number]. NINA on CPAP 06/28/2012 01/31/2020 Overview: 06/28/12 [...] as of this encounter (statuses as of 04/18/2023) Immunizations Name Administration Dates Next Due COVID-19 [...] Telephone Encounter - David Siegel DO - 04/18/2023 3:41 PM ESTSigned Prescriptions: Disp Refills HYDROcodone-Acetaminophen 5-325 MG Oral Ta*60 Tab*0 Sig: Take 1 Tablet by mouth every 6 hours as needed for Pain, Severe. Authorizing Provider: DAVID SIEGEL * Telephone Encounter - Isha Monteiro CPhT - 04/18/2023 10:53 AM EST Patient calling to check on status of Rx. Pt is completely out of Rx. Thank you, Isha Monteiro Circuit Board Drafter [facility] 04/18/2023, 10:53 AM * Telephone Encounter - Sagar Hui [facility] - 04/17/2023 11:29 AM EST Pending Prescriptions: Disp Refills HYDROcodone-Acetaminophen 5-325 MG Oral Ta*60 Tab*0 Sig: Take 1 Tablet by mouth every 6 hours as needed for Pain, Severe. * Telephone Encounter - Sagar Hui [facility] - 04/17/2023 11:28 AM EST I have reviewed the patients controlled substance dispensing history in the Prescription Drug Monitoring Program in compliance with the [facility] regulations before prescribing a controlled substance. PDMP checked on 04/17/2023. Pending Prescriptions: Disp Refills HYDROcodone-Acetaminophen 5-325 MG Oral T*60 Tab*0 Sig: Take 1 Tablet by mouth every 6 hours as needed for Pain, Severe. Last Visit: 01/23/2023 (in office), 06/03/2022 (telemedicine) Next Visit: Visit date not found Date medication was last filled: 04/01/2023 Date medication is due for refill: 04/15/2023 Pharmacy: [id number] Is this request for a controlled substance? Yes and Urine Drug Screen Not completed Toxicology results: No results found. However, due to the size of the patient record, not all encounters were searched.Please check Results Review for a complete set of results. Please approve if appropriate. Thank You, Sagar Hui, Pharm-D Clinical Pharmacist [facility] ([facility]) [phone] 04/17/2023, 11:28 AM documented in this encounter Plan of Treatment Upcoming Encounters Date Type Department Care Team (Late st Contact Info) Description 04/22/2023 6:00 AM EST Anticoagulation Pharmacy Call Center [address] [place] [address] [facility] [address] [facility] [place] [address] 04/22/2023 10:50 AM EST Laboratory Lab Mobile Phlebotomy [facility] [address] [place] [address] [facility] Mobile Home Draw [address] [place] [address] 05/14/2023 1:30 PM EST Telemedicine [facility], [place] [address] [place] [address] Carolee Manriquez PA-C [address] [place] [address] Edna Baum, Community Health Pediatric Nurse Practitioner [address] [place] [address] Scheduled Procedures Name Priority Associated Diagnoses Date/Ti me COLONOSCOPY FLEXIBLE PROXIMAL DIAGNOSTIC Recall History of colon polyps Health Maintenance Due Date Last Done Comments Depression Screening 08/16/2022 08/16/2021 Diabetic Foot Exam 08/16/2022 08/16/2021, 0 05/02/2020, 11/08/2018, Additional history exists CKD PHOS USE SMARTSET 48043 11/06/202210/25, 09/12/2020, 07/12/2020, Additional history exists COVID-19 Vaccine ( season) 2022 05/15/2021, 10/04/2020, 09/06/2020 COLONOSCOPY-EVERY 3 YRS AGES 18-100 06/01/2023 06/01/2020, 11/13/2015, 04/03/2015 Diabetic Eye Exam 06/06/2023 06/06/2022, , 06/06/2022, Additional history exists TSH 08/09/2023 08/08/2022, 07/26, 11/15/2020, Additional history exists Albumin/Creatinine Ratio 08/16/2023 023, 11/06/2021, 07/28/2018, Additional history exists HbA1c 09/26/2023 03/27/2023, 07/26, 06/10/2022, Additional history exists GFR 10/15/2023 04/15/2023, 04/2022, 12/24/2022, Additional history exists CKD HGB USE SMARTSET 47943 04/15/202404/15, 04/15/2023, 12/24/2022, Additional history exists DTaP,Tdap,and [...] the patient have Health Care Power of Video Tape Editor? No Full Code 12/05/2019 3:06 PM 12/05/2019 [...] the patient have Health Care Power of Video Tape Editor? Yes, not currently available Full Code 06/08/2019 4:36 AM 06/14/2019 4:10 PM This order reflects the patients wishes and were consensually agreed upon. Question Answer Comments Discussion of Advance Directives occurred with: Not Discussed Does the patient have a Living Will? No Does the patient have Health Care Power of Video Tape Editor? No Healthcare Agents on File Name Relationship Healthcare Agent Relationshi p Communication Maurymemo Valdo Adult Child [facility] re Agent Xi Lyle Adult Child [facility] Care Agent Care Teams Reactor Kettle Operator Relationship Specialty Start Date End Date David Siegel DO [address] [facility] [place] [address] PCP - General Family Medicine 11/12/11 documented as of this encounter
--- OUTSIDE RECORDS SUMMARY | 2023-05-19 00:33 | External Medical Summary | Summary of Care ---
Author Name Unknown Organization [facility] Address [address] [place] [address] Phone [phone] Care Team Providers Care Chief Medical Officer Name Role Phone Sherry Maya DO Primary Care Provider [phone] Reason for Visit * Reason Comments Dosage Adjustment Via Phone (anticoag Cl inic) Encounter Details Date Type Department Care Team (Latest Contact Info) Description 04/15/2023 6:00 PM EST Anticoagulation Pharmacy Call Center [address] [place] [address] [facility] [address] [place] [address] Chronic deep vein thrombosis (DVT) of proximal vein of left lower extremity (HCC)* Allergies Active Allergy Reactions Criticality Noted Date Comments Benzonatate 12/08/2016 choking Keyanna Pedraza Other (Please comment) High 04/10/20 09 Choking documented as of this encounter (statuses as of 04/15/2023) Medications Medication Sig Dispensed Refills Start Date End Date Status KIT PEREZ MISCIndications:DM type 2, not at goal ([facility]) 3 Box Dosing Unit 1 04/17/2015 [...] Patient not taking.Reported on 04/09/2023 Glucose Blood (WizivaUCH VERIO) STRP USE TO TEST BLOOD GLUCOSE 8 TIMES A DAY 800 Strip 3 03/18/2019 Active Insulin Aspart 100 UNIT/ML Injection Solution Inject under the skin. FOR USE IN PUMP 0 Active BloomfireToNetwork Verio Flex System w/Device Kit Use as [...] Acti ve Vitamin D (Ergocalciferol) 1.25 MG (48772 UT) Oral Capsule (Drisdol) take 1 capsule [...] [place], goal below 140/90,PAF (paroxysmal atrial fibrillation) ([facility]) Take 2 tablets (40mg) in [...] Overview: Added automatically from request for surgery [id number] 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 [...] Silent myocardial infarction 03/23/2013 11/08/2018 Accelerate Clinical Trial*[id number] 01/24/2013 05/16/2015 Overview: ACCELERATE STUDY. Project # [id number], BAGGING MACHINE OPERATOR: Ben Hoover MD. CRC: DEBORAH Back. SUMMARY: To test the hypothesis that Evacetrapib 130 mg, in comparison to placebo, reduces the risk of major adverse coronary events in high-risk vascular disease patients. CONTACTS: During normal business hours, contact study staff at ; after hours Controls Designer via the [facility] hospital dry pan operator [phone]. 24-hour Global Study Helpline: [phone]. Lipid levels should not be ordered/obtained while this subject is in the Accelerate study. Lipids are being managed in a blinded fashion. If lipid levels are inadvertently obtained, it is important that test results are NOT provided to the patient, study doctor, care team coordinator scheduler, or other study team members. Restricted meds while in the study: 1) niacin > 250 mg, 2) gemfibrozil with a potent [id number]. NINA on CPAP 06/28/2012 01/31/2020 Overview: 06/28/12 [...] as of this encounter Progress Notes * Kiara Paula PHARM Tech - 04/15/2023 1:48 PM EST Contacts Type Contact Phone/Fax 04/15/2023 01:47 PM EST Phone (Outgoing) Ben Lyle (Self) [phone] (M) Left Message Subjective Advised patient to contact Anticoagulation Clinic if any unusual bruising or bleeding, recent illness, changes in medication, or questions/concerns. PT/INR results, Coumadin dose instructions, and next PT/INR date communicated as noted by Pharmacist: Yes IGGY GIORDANO 04/15/2023, 1:48 PM * Jaimee Gandhi [facility] - 04/15/2023 1:41 PM EST Images from the original note were not included. Coumadin Clinic (region specific) Objective Current Warfarin Dose As of 04/15/2023 Warfarin maintenance plan: 4 mg (2 mg x 2) every day INR Result As of 04/15/2023 INR goal: 2.0-3.0 INR used for dosin.0 (04/15/2023) Assessment & Plan Warfarin Plan As of 04/15/2023 Full warfarin instructions: 04/15: Hold; 04/16: Hold; Otherwise 4 mg every day Next INR check: 04/21/2023 Repeat PT/INR in 1 week(s) Weekly dose: not changed Additional Dosing Information: Description GML MTuTh- AMIO (patient has 5mg and 1mg tabs) Tech to contact patient with dose instructions as noted. Jaimee Gandhi RPh 04/15/2023, 1:42 PM documented in this encounter Plan of Treatment Upcoming Encounters Date Type Department Care Team (Late st Contact Info) Description 04/22/2023 6:00 AM EST Anticoagulation Pharmacy Call Center [address] [place] [address] [facility], [facility] [address] [place] [address] 05/14/2023 1:30 PM EST Telemedicine [facility] [place] [address] [place] [address] Carolee Manriquez PA-C [address] [place] [address] Edna Baum, Community [facility] Circle Saw Operator [address] [place] [address] Scheduled Procedures Name Priority Associated Diagnoses Date/Ti me COLONOSCOPY FLEXIBLE PROXIMAL DIAGNOSTIC Recall History of colon polyps Health Maintenance Due Date Last Done Comments Depression Screening 08/16/2022 08/16/2021 Diabetic Foot Exam 08/16/2022 08/16/2021, 0 05/02/2020, 11/08/2018, Additional history exists CKD PHOS USE SMARTSET 00704 11/06/202210/25, 09/12/2020, 07/12/2020, Additional history exists COVID-19 [...] Additional history exists CKD HGB USE SMARTSET 23454 12/25/202312/24, 08/15/2022, 03/26/2022, Additional history exists DTaP,Tdap,and [...] the patient have Health Care Power of Child Support Investigator? No Full Code 12/05/2019 3:06 PM 12/05/2019 [...] the patient have Health Care Power of Child Support Investigator? Yes, not currently available Full Code 06/08/2019 4:36 AM 06/14/2019 4:10 PM This order reflects the patients wishes and were consensually agreed upon. Question Answer Comments Discussion of Advance Directives occurred with: Not Discussed Does the patient have a Living Will? No Does the patient have Health Care Power of Child Support Investigator? No Healthcare Agents on File Name Relationship Healthcare Agent Relationshi p Communication Omar Lyle Adult Child [facility] re Agent Xi Lyle Adult [facility] Care Agent Care Teams Chief Medical Officer Relationship Specialty Start Date End Date Sherry Maya DO [address] [place] [address] PCP - General Family Medicine 11/12/11 documented as of this encounter
--- OUTSIDE RECORDS SUMMARY | 2023-05-19 00:33 | External Medical Summary ---
Author Name Unknown Address Unknown Organization K01:[facility] [address] [facility] [address] Laboratory Report Ordering Provider Test Date Status JACQUELINALIE 04/22/2023 08:34:00 Final Standing order for pt/inr. < br/>Please draw pt/inr every 1 to 4 weeks as requested
Results to [facility]

Warfarin Therapy
INR: 2.0-3.0 conventional anticoagulation
INR: 2.5-3.5 high intensity anticoagulation Observation Date Value Abnormality Reference (Units ) Status PT 04/22/2023 08:34:00 20.9 Above high normal 11 .6-15.2 (seconds) Final INR 04/22/2023 08:34:00 1.8 Above high normal 0. 8-1.2 Final Performing Location [facility] [address] [facility] [address]
--- OUTSIDE RECORDS SUMMARY | 2023-05-19 00:34 | External Medical Summary | Summary of Care ---
Author Name Unknown Organization [facility] Address [address] [place] [address] Phone [phone] Care Team Providers Care Waste Machine Tender Name Role Phone Sherry Maya DO Primary Care Provider [phone] Encounter Details Date Type Department Care Team (Late st Contact Info) Description 04/14/2023 Result Scan Unspecified Department Imer Maya DO [address] [place], [place] [id number] <No scans attached> Allergies Active Allergy Reactions Criticality Noted Date Comments Benzonatate 12/08/2016 choking Keyanna Pedraza Other (Please comment) High 04/10/20 09 Choking documented as of this encounter (statuses as of 04/14/2023) Medications Medication Sig Dispensed Refills Start Date End Date Status ONESUNIL PEREZ MISCIndications:DM type 2, not at goal [...] Patient not taking.Reported on 04/09/2023 Glucose Blood (GoPath GlobalTOUCH VERIO) STRP USE TO TEST BLOOD GLUCOSE 8 TIMES A DAY 800 Strip 3 03/18/2019 Active Insulin Aspart 100 UNIT/ML Injection Solution Inject under the skin. FOR USE IN PUMP 0 Active IntelliChem Verio Flex System w/Device Kit Use as [...] Acti ve Vitamin D (Ergocalciferol) 1.25 MG (86587 UT) Oral Capsule (Drisdol) take 1 capsule [...] [place], goal below 140/90,PAF (paroxysmal atrial fibrillation) ([facility]) Take 2 tablets (40mg) in AM and [...] as of this encounter (statuses as of 04/14/2023) Active Problems Problem Noted Date Diagnosed Date [...] Overview: Added automatically from request for surgery [id number] 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 [...] as of this encounter (statuses as of 04/14/2023) Resolved Problems Problem Noted Date Diagnosed Date [...] Silent myocardial infarction 03/23/2013 11/08/2018 Accelerate Clinical Trial*[id number] 01/24/2013 05/16/2015 Overview: ACCELERATE STUDY. Project # [id number], CEMENT PAVER: Ben Hoover MD. CRC: DEBORAH Back. SUMMARY: To test the hypothesis that Evacetrapib 130 mg, in comparison to placebo, reduces the risk of major adverse coronary events in high-risk vascular disease patients. CONTACTS: During normal business hours, contact study staff at ; after hours Restaurant Associate via the [facility] hospital tester operator helper [phone]. 24-hour Global Study Helpline: [phone]. Lipid levels should not be ordered/obtained while this subject is in the Accelerate study. Lipids are being managed in a blinded fashion. If lipid levels are inadvertently obtained, it is important that test results are NOT provided to the patient, study doctor, continuity coordinator, or other study team members. Restricted meds while in the study: 1) niacin > 250 mg, 2) gemfibrozil with a potent [id number]. NINA on CPAP 06/28/2012 01/31/2020 Overview: 06/28/12 [...] as of this encounter (statuses as of 04/14/2023) Immunizations Name Administration Dates Next Due COVID-19 [...] No 01/08/2021 documented as of this encounter Plan of Treatment Upcoming Encounters Date Type Department Care Team (Late st Contact Info) Description 04/15/2023 8:00 AM EST Laboratory Lab Mobile Phlebotomy [facility] [address] [place] [address] [facility] Mobile Home Draw [address] [place] [address] 04/16/2023 6:00 AM EST Anticoagulation Pharmacy Call Center [address] [place] [address] [facility] [address] [place] [address] 05/14/2023 1:30 PM EST Telemedicine [facility] [place] [address] [place] [address] Carolee Manriquez PA-C [address] [place] [address] Edna Baum, Community [facility] Phlebotomy Coordinator [address] [place] [address] Scheduled Procedures Name Priority Associated Diagnoses Date/Ti me COLONOSCOPY FLEXIBLE PROXIMAL DIAGNOSTIC Recall History of colon polyps Health Maintenance Due Date Last Done Comments Depression Screening 08/16/2022 08/16/2021 Diabetic Foot Exam 08/16/2022 08/16/2021, 0 05/02/2020, 11/08/2018, Additional history exists CKD PHOS USE SMARTSET 56099 11/06/202210/25, 09/12/2020, 07/12/2020, Additional history exists COVID-19 [...] Additional history exists CKD HGB USE SMARTSET 63107 12/25/202312/24, 08/15/2022, 03/26/2022, Additional history exists DTaP,Tdap,and [...] Not on filedocumented as of this encounter Procedures Procedure Name Priority Date/Time Associated Diagnosis Comments CARDIOLOGY SCANNED RESULT 04/14/2023 documented in this encounter Results * CARDIOLOGY SCANNED RESULT (04/14/2023) 04/14/2023 Imer Maya DO OTHER documented in this encounter Advance Directives Latest [...] the patient have Health Care Power of Licensed Clinical Psychologist? No Full Code 12/05/2019 3:06 PM 12/05/2019 [...] the patient have Health Care Power of Licensed Clinical Psychologist? Yes, not currently available Full Code 06/08/2019 4:36 AM 06/14/2019 4:10 PM This order reflects the patients wishes and were consensually agreed upon. Question Answer Comments Discussion of Advance Directives occurred with: Not Discussed Does the patient have a Living Will? No Does the patient have Health Care Power of Licensed Clinical Psychologist? No Healthcare Agents on File Name Relationship Healthcare Agent Relationshi p Communication Omar Lyle Adult Child [facility] re Agent Xi Lyle Adult Child Health Care Agent Care Teams Waste Machine Tender Relationship Specialty Start Date End Date Sherry Maya DO [address] [place] [address] PCP - General Family Medicine 11/12/11 documented as of this encounter
--- OUTSIDE RECORDS SUMMARY | 2023-05-19 00:34 | External Medical Summary | Summary of Care ---
Author Name Unknown Organization [facility] Address [address] [place] [address] Phone [phone] Care Team Providers Care Senior Procurement Manager Name Role Phone Sherry Maya DO Primary Care Provider [phone] Reason for Visit * Reason Onset Date Comments Home Health 04/10/2023 Encounter Details Date Type Department Care Team (Late st Contact Info) Description 04/10/2023 Telephone [facility] [address] [place] [address] Sherry Maya DO [address] [place] [address] Home Health Allergies Active Allergy Reactions Criticality Noted Date Comments Benzonatate 12/08/2016 choking Keyanna Pedraza Other (Please comment) High 04/10/20 09 Choking documented as of this encounter (statuses as of 04/14/2023) Medications Medication Sig Dispensed Refills Start Date End Date Status ONETOUCH LANCETS MISCIndications:DM type 2, not at goal (HCC) [...] Patient not taking.Reported on 04/09/2023 Glucose Blood (Bloomspot VERIO) STRP USE TO TEST BLOOD GLUCOSE 8 TIMES A DAY 800 Strip 3 9 Active Insulin Aspart 100 UNIT/ML Injection Solution Inject under the skin. FOR USE IN PUMP 0 Active Traverse NetworksTouch Verio Flex System w/Device Kit Use as [...] 2 Active Vitamin D (Ergocalciferol) 1.25 MG (81378 UT) Oral Capsule (Drisdol) take 1 capsule [...] [place], goal below 140/90,PAF (paroxysmal atrial fibrillation) ([facility]) Take 2 tablets (40mg) in [...] the tramadol). 30 Tablet 0 3 Active HYDROcodone-Acetaminop hen 5-325 MG Oral TabletIndications:S/P BKA (below knee amputation) unilateral, left (HCC) Take 1 Tablet by mouth every 6 hours as needed for Pain, Severe. 60 Tablet 0 3 Active Cephalexin 500 MG [...] Tablet 0 3 04/12/20 23 Discontinu ed(Refill) documented as of this [...] Overview: Added automatically from request for surgery [id number] 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 [...] Silent myocardial infarction 03/23/2013 11/08/2018 Accelerate Clinical Trial*[id number] 01/24/2013 05/16/2015 Overview: ACCELERATE STUDY. Project # [id number], ENTERPRISE ARCHITECT MANAGER: Ben Hoover MD. CRC: DEBORAH Back. SUMMARY: To test the hypothesis that Evacetrapib 130 mg, in comparison to placebo, reduces the risk of major adverse coronary events in high-risk vascular disease patients. CONTACTS: During normal business hours, contact study staff at ; after hours Warping Mill Operator via the [facility] hospital sizing machine and drier operator [phone]. 24-hour Global Study Helpline: [phone]. Lipid levels should not be ordered/obtained while this subject is in the Accelerate study. Lipids are being managed in a blinded fashion. If lipid levels are inadvertently obtained, it is important that test results are NOT provided to the patient, study doctor, freight coordinator, or other study team members. Restricted meds while in the study: 1) niacin > 250 mg, 2) gemfibrozil with a potent [id number]. NINA on CPAP 06/28/2012 01/31/2020 Overview: 06/28/12 [...] encounter Miscellaneous Notes * Telephone Encounter - Dinora Zelaya LPN - 04/14/2023 10:31 AM EST [facility] made aware * Telephone Encounter - Sherry Maya DO - 04/13/2023 10:49 AM EST Oh okay Yes that is fine, although he really needs seen in the office for regular follow ups * Telephone Encounter - Lori Mcclain LPN - 04/10/2023 2:43 PM EST You are agreeable to sign HH orders/plan of care? Treva is waiting to hear back, before fax the orders to the office. * Telephone Encounter - Sherry Maya DO - 04/10/2023 10:28 AM EST I dont see any orders to be signed? What needs down with encounter? * Telephone Encounter - Lori Mcclain LPN - 04/10/2023 9:15 AM EST HH Admission/Start of Care Admission/Start of Care: Treva nursing pumping station supervisor Calling from: [place] Patient was Admitted to: [facility] for: wound infection from 03/30 to 04/01 Referral received for: Mcfp Planned start of care date:Yes, Date 04/12 Start of care will be completed on: 04/12 Narrative: he recently changed his insurance from [facility] to medicare Next Nursing visit(s) on 03/27 They will call with any updates or additional concerns from the upcoming HH visit. Last Office Visit: 01/23/2023 Has patient been scheduled or seen in the office for a follow up visit: Needs contacted to schedulefollow up Advise if orders will be signed by PCP. If agreeable, she will fax to the office for signature.- Call back Treva with advice or orders at [phone] documented in this encounter Plan of Treatment Upcoming Encounters Date Type Department Care Team (Late st Contact Info) Description 04/15/2023 8:00 AM EST Laboratory Lab Mobile Phlebotomy [facility] [address] [place] [address] [facility] Mobile Home Draw [address] [place] [address] 04/15/2023 1:30 PM EST Office Visit Cardiology, [facility] [address] [place] [address] Imer Maya DO [address] [place] [address] 04/16/2023 6:00 AM EST Anticoagulation Pharmacy Call Center [address] [facility] [place] [address] [facility] [address] [facility] [place] [address] 05/14/2023 1:30 PM EST Telemedicine [facility] [place] [address] [place] [address] Carolee Manriquez PA-C [address] [place] [address] Edna Baum, Community [facility] Factory Maintenance Manager [address] [place], [place] [id number] Scheduled Procedures Name Priority Associated Diagnoses Date/Ti me COLONOSCOPY FLEXIBLE PROXIMAL DIAGNOSTIC Recall History of colon polyps Health Maintenance Due Date Last Done Comments Depression Screening 08/16/2022 08/16/2021 Diabetic Foot Exam 08/16/2022 08/16/2021, 0 05/02/2020, 11/08/2018, Additional history exists CKD PHOS USE SMARTSET 76096 11/06/202210/25, 09/12/2020, 07/12/2020, Additional history exists COVID-19 Vaccine ( season) 2022 05/15/2021, 10/04/2020, 09/06/2020 COLONOSCOPY-EVERY 3 YRS AGES 18-100 06/01/2023 06/01/2020, 11/13/2015, 04/03/2015 Diabetic Eye Exam 06/06/2023 06/06/2022, , 06/06/2022, Additional history exists TSH 08/09/2023 08/08/2022, 07/26, 11/15/2020, Additional history exists Albumin/Creatinine Ratio 08/16/2023 023, 11/06/2021, 07/28/2018, Additional history exists GFR 09/26/2023 03/27/2023, 11/27, 08/08/2022, Additional history exists HbA1c 09/26/2023 03/27/2023, 0407/2022, 06/10/2022, Additional history exists CKD HGB USE SMARTSET 50760 12/25/202312/24, 08/15/2022, 03/26/2022, Additional history exists DTaP,Tdap,and [...] the patient have Health Care Power of Fur Blower Operator? No Full Code 12/05/2019 3:06 PM [...] the patient have Health Care Power of Fur Blower Operator? Yes, not currently available Full Code 06/08/2019 4:36 AM 06/14/2019 4:10 PM This order reflects the patients wishes and were consensually agreed upon. Question Answer Comments Discussion of Advance Directives occurred with: Not Discussed Does the patient have a Living Will? No Does the patient have Health Care Power of Fur Blower Operator? No Healthcare Agents on File Name Relationship Healthcare Agent [facility] p Communication Omar Mckeont Adult Child [facility] re Agent [facility] Care Agent Care Teams Senior Procurement Manager Relationship Specialty Start Date End Date Sherry Maya DO [address] [place] [address] PCP - General Family Medicine 11/12/11 documented as of this encounter
--- OUTSIDE RECORDS SUMMARY | 2023-05-19 00:34 | External Medical Summary | Summary of Care ---
Author Name Unknown Organization [facility] Address [address] [place] [address] Phone [phone] Care Team Providers Care Leadership Intern Name Role Phone David Siegel DO Primary Care Provider [phone] Reason for Visit * Reason Onset Date Comments Medication Refill 04/12/2023 Encounter Details Date Type Department Care Team (Late st Contact Info) Description 04/12/2023 Refill [place] [address] [place] [address] David Siegel DO [address] [place] [address] S/P BKA (below knee amputation) unilateral, left (HCC) Allergies Active Allergy Reactions Criticality Noted Date Comments Benzonatate 12/08/2016 choking Keyanna Pedraza Other (Please comment) High 04/10/20 09 Choking documented as of this encounter (statuses as of 04/13/2023) Medications Medication Sig Dispensed Refills Start Date [...] Patient not taking.Reported on 04/09/2023 Glucose Blood (ROI land investment VERIO) STRP USE TO TEST BLOOD GLUCOSE 8 TIMES A DAY 800 Strip 3 9 Active Insulin Aspart 100 UNIT/ML Injection Solution Inject under the skin. FOR USE IN PUMP 0 Active Creative AlliesToTiGenix Verio Flex System w/Device Kit Use as [...] 2 Active Vitamin D (Ergocalciferol) 1.25 MG (86479 UT) Oral Capsule (Drisdol) take 1 capsule [...] Pain, Moderate. 30 Tablet 0 3 Active traMADol HCl 50 MG Oral Tablet (Ultram)Indications:S/ P BKA (below knee amputation) unilateral, left (HCC) Take 1 Tablet by mouth every 6 hours as needed for Pain, Moderate. 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 Project # [id number], PUBLISHING MANAGER: Ben Hoover MD. CRC: DEBORAH Back. SUMMARY: To test the hypothesis that Evacetrapib 130 mg, in comparison to placebo, reduces the risk of major adverse coronary events in high-risk vascular disease patients. CONTACTS: During normal business hours, contact study staff at ; after hours Manager Books via the [facility] mercerizer machine operator [phone]. 24-hour Global Study Helpline: [phone]. Lipid levels should not be ordered/obtained while this subject is in the Accelerate study. Lipids are being managed in a blinded fashion. If lipid levels are inadvertently obtained, it is important that test results are NOT provided to the patient, study doctor, library services coordinator, or other study team members. Restricted meds while in the study: 1) niacin > 250 mg, 2) gemfibrozil with a potent [id number]. NINA on CPAP 06/28/2012 01/31/2020 Overview: 06/28/12 [...] as of this encounter (statuses as of 04/13/2023) Immunizations Name Administration Dates Next Due COVID-19 [...] Telephone Encounter - David Siegel DO - 04/13/2023 2:09 PM ESTSigned Prescriptions: Disp Refills traMADol HCl 50 MG Oral Tablet (Ultram) 30 Tab*0 Sig: Take 1 Tablet by mouth every 6 hours as needed for Pain, Moderate. Authorizing Provider: DAVID SIEGEL * Telephone Encounter - Karolina Marley [facility] - 04/13/2023 1:13 PM ESTPending Prescriptions: Disp Refills traMADol HCl 50 MG Oral Tablet (Ultram) 30 Tab*0 Sig: Take 1 Tablet by mouth every 6 hours as needed for Pain, Moderate. * Telephone Encounter - Karolina Marley RPh - 04/13/2023 1:13 PM EST I have reviewed the patients controlled substance dispensing history in the Prescription Drug Monitoring Program in compliance with the [facility] regulations before prescribing a controlled substance. PDMP checked on 04/13/2023. Pending Prescriptions: Disp Refills traMADol HCl 50 MG Oral Tablet (Ultram) 30 Tab*0 Sig: Take 1 Tablet by mouth every 6 hours as needed for Pain, Moderate. Last Visit: 01/23/2023 (in office), 06/03/2022 (telemedicine) Next Visit: Visit date not found Date medication was last filled: 03/25/23 Date medication is due for refill: 03/31/23 Pharmacy: [id number] Is this request for a controlled substance? Yes and Urine Drug Screen Not completed Toxicology results: No results found. However, due to the size of the patient record, not all encounters were searched.Please check Results Review for a complete set of results. Please approve if appropriate. Thanks, Karolina Marley Clinical Pharmacist [facility] Services ([facility]PS) (Formerly Telepharmacy) [phone] 04/13/2023, 1:13 PM documented in this encounter Plan of Treatment Upcoming Encounters Date Type Department Care Team (Late st Contact Info) Description 04/15/2023 8:00 AM EST Laboratory Lab [place]botomy [facility] [address] [place] [address] [facility] [place], [facility] Mobile Home Draw [address] [place] [address] 04/15/2023 1:30 PM EST Office Visit Cardiology, [facility] [address] [place] [address] Imer Siegel, [address] [place] [address] 04/16/2023 6:00 AM EST Anticoagulation Pharmacy Call Center [address] [place] [address] [facility] [place], [facility] [address] [facility] [place] [address] 05/14/2023 1:30 PM EST Telemedicine [facility], [place] [address] [place] [address] Carolee Manriquez PA-C [address] [place] [address] Edna Baum, Community Health Purchase Analyst [address] [place] [address] Scheduled Procedures Name Priority Associated Diagnoses Date/Ti me COLONOSCOPY FLEXIBLE PROXIMAL DIAGNOSTIC Recall History of colon polyps Health Maintenance Due Date Last Done Comments Depression Screening 08/16/2022 08/16/2021 Diabetic Foot Exam 08/16/2022 08/16/2021, 0 05/02/2020, 11/08/2018, Additional history exists CKD PHOS USE SMARTSET 62379 11/06/202210/25, 09/12/2020, 07/12/2020, Additional history exists COVID-19 [...] Additional history exists CKD HGB USE SMARTSET 33464 12/25/202312/24, 08/15/2022, 03/26/2022, Additional history exists DTaP,Tdap,and [...] the patient have Health Care Power of Buffing Machine Operator? No Full Code 12/05/2019 3:06 PM [...] the patient have Health Care Power of Buffing Machine Operator? Yes, not currently available Full Code 06/08/2019 4:36 AM 06/14/2019 4:10 PM This order reflects the patients wishes and were consensually agreed upon. Question Answer Comments Discussion of Advance Directives occurred with: Not Discussed Does the patient have a Living Will? No Does the patient have Health Care Power of Buffing Machine Operator? No Healthcare Agents on File Name Relationship Healthcare Agent Relationshi p Communication Omra Lyle Adult Child [facility] Ca re Agent Xi Ontiverosrett Adult Child Health Care Agent Care Teams Leadership Intern Relationship Specialty Start Date End Date David Siegel DO [address] [place] [address] PCP - General Family Medicine 11/12/11 documented as of this encounter
--- OUTSIDE RECORDS SUMMARY | 2023-05-19 00:34 | External Medical Summary | Summary of Care ---
Author Name Unknown Organization [facility] Address [address] [place] [address] Phone [phone] Care Team Providers Care Business Education Professor Name Role Phone Sherry Maya DO Primary Care Provider [phone] Reason for Visit * Reason Onset Date Comments Advice 04/13/2023 Encounter Details Date Type Department Care Team ([facility] st Contact Info) Description 04/13/2023 Telephone [facility], [place] [address] [place] [address] Carolee Manriquez PA-C [address] [place] [address] Advice Allergies Active Allergy Reactions Criticality Noted Date [...] Patient not taking.Reported on 04/09/2023 Glucose Blood (JoyentTOUCH VERIO) STRP USE TO TEST BLOOD GLUCOSE [...] Active WalkerIndications:Oste omyelitis of foot, left, acute ([facility]),Diabetic polyneuropathy associated with diabetes mellitus due to underlying condition ([facility]),Ulcer of right foot with necrosis of muscle ([facility]),Right knee pain, unspecified chronicity,Heart failure, systolic, due [...] Acti ve Vitamin D (Ergocalciferol) 1.25 MG (60214 UT) Oral Capsule (Drisdol) take 1 capsule [...] polyneuropathy associated with type 2 diabetes mellitus ([facility]) Take 1 Capsule by mouth in the [...] [place], goal below 140/90,PAF (paroxysmal atrial fibrillation) ([facility]) Take 2 tablets (40mg) in AM and [...] TabletIndications:S/P BKA (below knee amputation) unilateral, left ([facility]) Take 1 Tablet by mouth every 6 hours as needed for Other (break thru pain, and do not take with the tramadol). 30 Tablet 0 01/23/2023 Active traMADol HCl 50 MG Oral Tablet (Ultram)Indications:S/ P BKA (below knee amputation) unilateral, left (HCC) Take 1 Tablet by mouth every 6 hours as needed for Pain, Moderate. 30 Tablet 0 03/25/2023 Active HYDROcodone-Acetaminop hen 5-325 MG Oral TabletIndications:S/P [...] the morning. 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 Project # [id number], LEGAL CONSULTANT: Ben Hoover MD. CRC: DEBORAH Back. SUMMARY: To test the hypothesis that Evacetrapib 130 mg, in comparison to placebo, reduces the risk of major adverse coronary events in high-risk vascular disease patients. CONTACTS: During normal business hours, contact study staff at ; after hours Family Dinner Service Specialist via the [facility] forge press operator [phone]. 24-hour Global Study Helpline: [phone]. Lipid levels should not be ordered/obtained while this subject is in the Accelerate study. Lipids are being managed in a blinded fashion. If lipid levels are inadvertently obtained, it is important that test results are NOT provided to the patient, study doctor, technology coordinator, or other study team members. Restricted meds while in the study: 1) niacin > 250 mg, 2) gemfibrozil with a potent [id number]. NINA on CPAP 06/28/2012 01/31/2020 Overview: 06/28/12 [...] encounter Miscellaneous Notes * Telephone Encounter - Carolee Manriquez PA-C - 04/13/2023 12:05 PM EST Called patient for follow up as he sent a foodjunky message. He states he is feeling pain all over. He has trouble sleeping. He states this pain is not new, he has had it for quite some time. He was scheduled for mobile labs to be drawn today but they went to the wrong residence. I would like to see his potassium level. He is scheduled in 2 days. He states edema did improve after taking additional days of increased diuretics. He has a concern about a pressure wound developing on his buttocks. was out to today but he did not inform them of this issue. Advised him he needs to discuss pain medication with PCP as that is who is prescribing it. Will reach out to in regards to him getting a wheelchair. documented in this encounter Plan of Treatment Upcoming Encounters Date Type Department Care Team (Late st Contact Info) Description 04/14/2023 6:00 AM EST Anticoagulation Pharmacy Call Center [address] [place] [address] [facility] [address] [place] [address] 04/15/2023 8:00 AM EST Laboratory Lab Mobile Phlebotomy [facility] [address] [place] [address] [facility] [place], [facility] Mobile Home Draw [address] [place] [address] 04/15/2023 1:30 PM EST Office Visit Cardiology, [facility] [address] [facility] [place] [address] Imer Maya, [address] [place] [address] 05/14/2023 1:30 PM EST Telemedicine [facility], [place] [address] [place] [address] Carolee Manriquez PA-C [address] [place] [address] Edna Baum, Community Health Motor Coach Bus Driver [address] [place] [address] Scheduled Procedures Name Priority Associated Diagnoses Date/Ti me COLONOSCOPY FLEXIBLE PROXIMAL DIAGNOSTIC Recall History of colon polyps Health Maintenance Due Date Last Done Comments Depression Screening 08/16/2022 08/16/2021 Diabetic Foot Exam 08/16/2022 08/16/2021, 0 05/02/2020, 11/08/2018, Additional history exists CKD PHOS USE SMARTSET 02216 11/06/2022 0706/2021, 09/12/2020, 07/12/2020, Additional history exists COVID-19 Vaccine [...] Additional history exists CKD HGB USE SMARTSET 82490 12/25/202312/24, 08/15/2022, 03/26/2022, Additional history exists DTaP,Tdap,and [...] the patient have Health Care Power of Sander Portable Machine? No Full Code 12/05/2019 3:06 PM 12/05/2019 [...] the patient have Health Care Power of Sander Portable Machine? Yes, not currently available Full Code 06/08/2019 4:36 AM 06/14/2019 4:10 PM This order reflects the patients wishes and were consensually agreed upon. Question Answer Comments Discussion of Advance Directives occurred with: Not Discussed Does the patient have a Living Will? No Does the patient have Health Care Power of Sander Portable Machine? No Healthcare Agents on File Name Relationship Healthcare Agent [facility] Omar Lyle Adult Child [facility] Ca re Agent Xi Valdo Adult Child [facility] Care Agent Care Teams Business Education Professor Relationship Specialty Start Date End Date Sherry Maya DO [address] [place] [address] PCP - General Family Medicine 11/12/11 documented as of this encounter
--- OUTSIDE RECORDS SUMMARY | 2023-05-19 00:35 | External Medical Summary | Summary of Care ---
Author Name Unknown Organization [facility] Address [address] [place] [address] Phone [phone] Care Team Providers Care Dental Appliance Mechanic Name Role Phone Sherry Maya DO Primary Care Provider [phone] Reason for Visit * Reason Onset Date Comments Home Health 04/10/2023 Encounter Details Date Type Department Care Team (Late st Contact Info) Description 04/10/2023 Telephone [facility] [address] [place] [address] Sherry Maya DO [address] [place] [address] Home Health Allergies Active Allergy Reactions Criticality Noted Date Comments Benzonatate 12/08/2016 choking Keyanna Pedraza Other (Please comment) High 04/10/20 09 Choking documented as of this encounter (statuses as of 04/10/2023) Medications Medication Sig Dispensed Refills Start Date [...] Patient not taking.Reported on 04/09/2023 Glucose Blood (uShipTOUCH VERIO) STRP USE TO TEST BLOOD GLUCOSE [...] Active WalkerIndications:Oste omyelitis of foot, left, acute ([facility]),Diabetic polyneuropathy associated with diabetes mellitus due to underlying condition ([facility]),Ulcer of right foot with necrosis of muscle ([facility]),Right knee pain, unspecified chronicity,Heart failure, systolic, due [...] Acti ve Vitamin D (Ergocalciferol) 1.25 MG (02267 UT) Oral Capsule (Drisdol) take 1 capsule [...] associated with type 2 diabetes mellitus ([facility]) Take 1 Capsule by mouth in the [...] goal below 140/90,PAF (paroxysmal atrial fibrillation) ([facility]) Take 2 tablets (40mg) in AM and [...] BKA (below knee amputation) unilateral, left ([facility]) Take 1 Tablet by mouth every 6 [...] as of this encounter (statuses as of 04/10/2023) Active Problems Problem Noted Date Diagnosed Date [...] Overview: Added automatically from request for surgery [id number] 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 [...] as of this encounter (statuses as of 04/10/2023) Resolved Problems Problem Noted Date Diagnosed Date [...] Silent myocardial infarction 03/23/2013 11/08/2018 Accelerate Clinical Trial*[id number] 01/24/2013 05/16/2015 Overview: ACCELERATE STUDY. Project # [id number], CONCRETE BLOCK MOLDER: Ben Hoover MD. CRC: DEBORAH Back. SUMMARY: To test the hypothesis that Evacetrapib 130 mg, in comparison to placebo, reduces the risk of major adverse coronary events in high-risk vascular disease patients. CONTACTS: During normal business hours, contact study staff at ; after hours Rabbit Breeder via the [facility] hospital receptionist/telephone operator [phone]. 24-hour Global Study Helpline: [phone]. Lipid levels should not be ordered/obtained while this subject is in the Accelerate study. Lipids are being managed in a blinded fashion. If lipid levels are inadvertently obtained, it is important that test results are NOT provided to the patient, study doctor, recovery coordinator, or other study team members. Restricted meds while in the study: 1) niacin > 250 mg, 2) gemfibrozil with a potent [id number]. NINA on CPAP 06/28/2012 01/31/2020 Overview: 06/28/12 [...] as of this encounter (statuses as of 04/10/2023) Immunizations Name Administration Dates Next Due COVID-19 [...] Mcclain LPN - 04/10/2023 9:15 AM EST Admission/Start of Care Admission/Start of Care: Treva nursing social work supervisor Calling from: [place] Patient [facility] from 03/30 to 04/01 Referral received for: Snf Planned start of care date:Yes, Date 04/12 Start of care will be completed on: 04/12 Narrative: he recently changed his insurance from P to medicare Next Nursing visit(s) on 03/27 [...] back Treva with advice or orders at [phone] documented in this encounter Plan of Treatment Upcoming Encounters Date Type Department Care Team (Late st Contact Info) Description 04/13/2023 9:00 AM EST Laboratory Lab [place]lebotomy [facility] [address] [place] [address] [facility], [facility] Mobile Home Draw [address] [place] [address] 04/14/2023 6:00 AM EST Anticoagulation Pharmacy Call Center [address] [place] [address] Ccp, [facility] [address] [place] [address] 04/15/2023 1:30 PM EST Office Visit Cardiology, [facility] [address] [facility] [place] [address] Imer Maya, [address] [place] [address] 05/14/2023 1:30 PM EST [facility] [address] [place] [address] Carolee Manriquez PA-C [address] [place] [address] Edna Baum, Community Health Communications Media Professor [address] [place] [address] Scheduled Procedures Name Priority Associated Diagnoses Date/Ti me COLONOSCOPY FLEXIBLE PROXIMAL DIAGNOSTIC Recall History of colon polyps Health Maintenance Due Date Last Done Comments Depression Screening 08/16/2022 08/16/2021 Diabetic Foot Exam 08/16/2022 08/16/2021, 0 05/02/2020, 11/08/2018, Additional history exists CKD PHOS USE SMARTSET 64937 11/06/202210/25, 09/12/2020, 07/12/2020, Additional history exists COVID-19 Vaccine (2022-24 season) 2022 05/15/2021, 10/04/2020, 09/06/2020 COLONOSCOPY-EVERY 3 YRS AGES 18-100 06/01/2023 06/01/2020, 11/13/2015, 04/03/2015 Diabetic Eye Exam 06/06/2023 06/06/2022, , 06/06/2022, Additional history exists TSH 08/09/2023 08/08/2022, 07/26, 11/15/2020, Additional history exists Albumin/Creatinine Ratio 08/16/2023 023, 11/06/2021, 07/28/2018, Additional history exists GFR 09/26/2023 03/27/2023, 11/27, 08/08/2022, Additional history exists HbA1c 09/26/2023 03/27/2023, 07/26, 06/10/2022, Additional history exists CKD HGB USE SMARTSET 55632 12/25/202312/24, 08/15/2022, 03/26/2022, Additional history exists DTaP,Tdap,and [...] the patient have Health Care Power of Senior Drupal Developer? No Full Code 12/05/2019 3:06 PM 12/05/2019 [...] the patient have Health Care Power of Senior Drupal Developer? Yes, not currently available Full Code 06/08/2019 4:36 AM 06/14/2019 4:10 PM This order reflects the patients wishes and were consensually agreed upon. Question Answer Comments Discussion of Advance Directives occurred with: Not Discussed Does the patient have a Living Will? No Does the patient have Health Care Power of Senior Drupal Developer? No Healthcare Agents on File Name Relationship Healthcare Agent [facility] Communication Omar Lyle Adult Child [facility] re Agent Xi Mckeont Adult Child Health Care Agent Care Teams Dental Appliance Mechanic Relationship Specialty Start Date End Date Sherry Maya DO [address] [facility] [place] [address] PCP - General Family Medicine 11/12/11 documented as of this encounter
--- OUTSIDE RECORDS SUMMARY | 2023-05-19 00:35 | External Medical Summary | Summary of Care ---
Author Name Unknown Organization [facility] Address [address] [place] [address] Phone [phone] Care Team Providers Care Weaver Hand Name Role Phone Sherry Maya DO Primary Care Provider [phone] Reason for Visit * Reason Onset Date Comments Home Health 04/10/2023 Encounter Details Date Type Department Care Team (Late st Contact Info) Description 04/10/2023 Telephone [facility] [address] [place] [address] Sherry Maya DO [address] [place] [address] Home Health Allergies Active Allergy [...] Patient not taking.Reported on 04/09/2023 Glucose Blood (MobiveilTOUCH VERIO) STRP USE TO TEST BLOOD GLUCOSE [...] Active WalkerIndications:Oste omyelitis of foot, left, acute ([facility]),Diabetic polyneuropathy associated with diabetes mellitus due to underlying condition ([facility]),Ulcer of right foot with necrosis of muscle ([facility]),Right knee pain, unspecified chronicity,Heart failure, [...] Acti ve Vitamin D (Ergocalciferol) 1.25 MG (15208 UT) Oral Capsule (Drisdol) take 1 capsule [...] Overview: Added automatically from request for surgery [id number] 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 [...] Silent myocardial infarction 03/23/2013 11/08/2018 Accelerate Clinical Trial*[id number] 01/24/2013 05/16/2015 Overview: ACCELERATE STUDY. Project # [id number], PHP WEB DEVELOPER: Ben Hoover MD. CRC: DEBORAH Back. SUMMARY: To test the hypothesis that Evacetrapib 130 mg, in comparison to placebo, reduces the risk of major adverse coronary events in high-risk vascular disease patients. CONTACTS: During normal business hours, contact study staff at ; after hours Roof Plumber via the [facility] hospital machine operator transplanter [phone]. 24-hour Global Study Helpline: [phone]. Lipid levels should not be ordered/obtained while this subject is in the Accelerate study. Lipids are being managed in a blinded fashion. If lipid levels are inadvertently obtained, it is important that test results are NOT provided to the patient, study doctor, surgical services coordinator, or other study team members. Restricted meds while in the study: 1) niacin > 250 mg, 2) gemfibrozil with a potent [id number]. NINA on CPAP 06/28/2012 01/31/2020 Overview: 06/28/12 [...] of Care Admission/Start of Care: Treva nursing screen making supervisor Calling from: [place] Patient was Admitted to: [facility] for: wound infection from 03/30 to 04/01 Referral received for: Senior Care Planned start of care date:Yes, Date 04/12 Start of care will be completed on: 04/12 Narrative: he recently changed his insurance from G[employer] to medicare Next Nursing visit(s) on 03/27 [...] back Treva with advice or orders at [phone] documented in this encounter Plan of Treatment Upcoming Encounters Date Type Department Care Team (Late st Contact Info) Description 04/14/2023 6:00 AM EST Anticoagulation Pharmacy Call Center [address] [place] [address] Ccps, [facility] [address] [place] [address] 04/15/2023 1:30 PM EST Office Visit Cardiology, [facility] [address] [place] [address] Imer Maya, [address] [place] [address] 05/14/2023 1:30 PM EST Telemedicine [facility] [place] [address] [place] [address] Carolee Manriquez PA-C [address] [place] [address] Edna Baum, [facility] [address] [place] [address] Scheduled Procedures Name Priority Associated Diagnoses Date/Ti me COLONOSCOPY FLEXIBLE PROXIMAL DIAGNOSTIC Recall History of colon polyps Health Maintenance Due Date Last Done Comments Depression Screening 08/16/2022 08/16/2021 Diabetic Foot Exam 08/16/2022 08/16/2021, 0 05/02/2020, 11/08/2018, Additional history exists CKD PHOS USE SMARTSET 75005 11/06/202210/25, 09/12/2020, 07/12/2020, Additional history exists COVID-19 [...] Additional history exists CKD HGB USE SMARTSET 55797 12/25/202312/24, 08/15/2022, 03/26/2022, Additional history exists DTaP,Tdap,and [...] the patient have Health Care Power of Metal Solderer? No Full Code 12/05/2019 3:06 PM 12/05/2019 [...] the patient have Health Care Power of Metal Solderer? Yes, not currently available Full Code 06/08/2019 4:36 AM 06/14/2019 4:10 PM This order reflects the patients wishes and were consensually agreed upon. Question Answer Comments Discussion of Advance Directives occurred with: Not Discussed Does the patient have a Living Will? No Does the patient have Health Care Power of Metal Solderer? No Healthcare Agents on File Name Relationship Healthcare Agent Relationshi p Communication Omar Lyle Adult Child [facility] re Agent Xi Lyle Adult Child Health Care Agent Care Teams Weaver Hand Relationship Specialty Start Date End Date Sherry Maya DO [address] [facility] [place] [address] PCP - General Family Medicine 11/12/11 documented as of this encounter
--- OUTSIDE RECORDS SUMMARY | 2023-05-19 00:35 | External Medical Summary | Summary of Care ---
Author Name Unknown Organization [facility] Address [address] [place] [address] Phone [phone] Care Team Providers Care Pals Nurse Name Role Phone Sherry Maya DO Primary Care Provider [phone] Reason for Visit * Reason Onset Date Comments Home Health 04/10/2023 Encounter Details Date Type Department Care Team (Late st Contact Info) Description 04/10/2023 Telephone [facility] [address] [place] [address] Sherry Maya DO [address] [place] [address] Home Health Allergies Active Allergy [...] Patient not taking.Reported on 04/09/2023 Glucose Blood (MingyianTOUCH VERIO) STRP USE TO TEST BLOOD GLUCOSE [...] Active WalkerIndications:Oste omyelitis of foot, left, acute ([facility]),Diabetic polyneuropathy associated with diabetes mellitus due to underlying condition ([facility]),Ulcer of right foot with necrosis of muscle ([facility]),Right knee pain, unspecified chronicity,Heart failure, systolic, due [...] Acti ve Vitamin D (Ergocalciferol) 1.25 MG (53207 UT) Oral Capsule (Drisdol) take 1 capsule [...] polyneuropathy associated with type 2 diabetes mellitus ([facility]) Take 1 Capsule by mouth in the [...] TN, goal below 140/90,PAF (paroxysmal atrial fibrillation) ([facility]) Take 2 tablets (40mg) in AM and [...] TabletIndications:S/P BKA (below knee amputation) unilateral, left ([facility]) Take 1 Tablet by mouth every 6 [...] Overview: Added automatically from request for surgery [id number] 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 [...] Silent myocardial infarction 03/23/2013 11/08/2018 Accelerate Clinical Trial*[id number] 01/24/2013 05/16/2015 Overview: ACCELERATE STUDY. Project # [id number], DRY HOUSE WHEELER: Ben Hoover MD. CRC: DEBORAH Back. SUMMARY: To test the hypothesis that Evacetrapib 130 mg, in comparison to placebo, reduces the risk of major adverse coronary events in high-risk vascular disease patients. CONTACTS: During normal business hours, contact study staff at ; after hours Ship/Rec/Doc Control via the [facility] hospital cup trimming machine operator [phone]. 24-hour Global Study Helpline: [phone]. Lipid levels should not be ordered/obtained while this subject is in the Accelerate study. Lipids are being managed in a blinded fashion. If lipid levels are inadvertently obtained, it is important that test results are NOT provided to the patient, study doctor, audience coordinator, or other study team members. Restricted meds while in the study: 1) niacin > 250 mg, 2) gemfibrozil with a potent [id number]. NINA on CPAP 06/28/2012 01/31/2020 Overview: 06/28/12 [...] encounter Miscellaneous Notes * Telephone Encounter - Lori Mcclain LPN - 04/10/2023 2:43 PM EST You are agreeable to sign orders/plan of care? Treva is waiting to hear back, before fax the orders to the office. * Telephone Encounter - Sherry Maya DO - 04/10/2023 10:28 AM EST I dont see any orders to be signed? What needs down with encounter? * Telephone Encounter - Lori Mcclain LPN - 04/10/2023 9:15 AM EST HH Admission/Start of Care Admission/Start of Care: Treva nursing clinical supervisor Calling from: [place] Patient was Admitted to: [facility] for: wound infection from 03/30 to 04/01 Referral received for: Nursing Home Planned start of care date:Yes, Date 04/12 [...] back Treva with advice or orders at [phone] documented in this encounter Plan of Treatment Upcoming Encounters Date Type Department Care Team (Late st Contact Info) Description 04/13/2023 9:00 AM EST Laboratory Lab Mobile Phlebotomy [facility] [address] [place] [address] [facility] Mobile Home Draw [address] [place] [address] 04/14/2023 6:00 AM EST Anticoagulation Pharmacy Call Center [address] [place] [address] [facility], [facility] [address] [place] [address] 04/15/2023 1:30 PM EST Office Visit Cardiology, [facility] [address] [facility] [place] [address] Imer Maya O, DO [address] [place] [address] 05/14/2023 1:30 PM EST Telemedicine [facility] [place] [place] [address] [place] [address] Carolee Manriquez PA-C [address] [place] [address] Edna Baum, [facility] Department Supervisor [address] [place] [address] Scheduled Procedures Name Priority Associated Diagnoses Date/Ti me COLONOSCOPY FLEXIBLE PROXIMAL DIAGNOSTIC Recall History of colon polyps Health Maintenance Due Date Last Done Comments Depression Screening 08/16/2022 08/16/2021 Diabetic Foot Exam 08/16/2022 08/16/2021, 0 05/02/2020, 11/08/2018, Additional history exists CKD PHOS USE SMARTSET 03838 11/06/202210/25, 09/12/2020, 07/12/2020, Additional history exists COVID-19 [...] Additional history exists CKD HGB USE SMARTSET 30406 12/25/202312/24, 08/15/2022, 03/26/2022, Additional history exists DTaP,Tdap,and [...] the patient have Health Care Power of Sales Support Engineer? No Full Code 12/05/2019 3:06 PM [...] the patient have Health Care Power of Sales Support Engineer? Yes, not currently available Full Code 06/08/2019 4:36 AM 06/14/2019 4:10 PM This order reflects the patients wishes and were consensually agreed upon. Question Answer Comments Discussion of Advance Directives occurred with: Not Discussed Does the patient have a Living Will? No Does the patient have Health Care Power of Sales Support Engineer? No Healthcare Agents on File Name Relationship Healthcare Agent Relationshi p Communication Omar Lyle Adult Child [facility] re Agent Xi Lyle Adult Child Health Care Agent Care Teams Pals Nurse Relationship Specialty Start Date End Date Sherry Maya DO [address] [place] [address] PCP - General Family Medicine 11/12/11 documented as of this encounter
--- OUTSIDE RECORDS SUMMARY | 2023-05-19 00:36 | External Medical Summary | Summary of Care ---
Author Name Unknown Organization [facility] Address [address] [facility] [address] Phone [phone] Care Team Providers Care Procurement Technician Name Role Phone Sherry Maya DO Primary Care Provider [phone] Reason for Visit * Reason Comments Cardiac Rehab Encounter Details Date Type Department Care Team (Late st Contact Info) Description 03/27/2023 9:00 AM EST Telemedicine [facility] [address] [place] [address] [place] [address] [facility] [address] [place] [address] [place] [address] Heart failure, unspecified HF chronicity, unspecified heart failure type (HCC)* Allergies Active Allergy Reactions Criticality Noted Date Comments Benzonatate 12/08/2016 choking Keyanna Pedraza Other (Please comment) High 04/10/20 09 Choking documented as of this encounter (statuses as of 04/09/2023) Medications Medication Sig Dispensed Refills Start Date [...] Patient not taking.Reported on 04/09/2023 Glucose Blood (APSXUCH VERIO) STRP USE TO TEST BLOOD GLUCOSE [...] Active WalkerIndications:Oste omyelitis of foot, left, acute ([facility]),Diabetic polyneuropathy associated with diabetes mellitus due to underlying condition ([facility]),Ulcer of right foot with necrosis of muscle ([facility]),Right knee pain, unspecified chronicity,Heart failure, [...] Additional Information Patient not taking.Reported on 04/09/2023 Triamcinolone Acetonide 0.1 % External Lotion (Aristocort)Indication s:Other eczema Apply topically to affected area 2 times a day . To affected area. 60 mL 5 12/17/2021 Active Empagliflozin 25 MG Oral Tablet (Jardiance) Take 1 Tablet by mouth in the morning. 0 Active Atorvastatin Calcium 80 MG Oral Tablet (Lipitor)Indications:D yslipidemia, goal LDL below 100 Take 1 Tablet by mouth in the morning. 100 Tablet 3 05/02/2022 Active Additional Information Patient not taking.Reported on 04/09/2023 Potassium Chloride Tiffanie ER 10 MEQ Oral Tablet Extended ReleaseIndications:Isc hemic cardiomyopathy Take 2 Tablets by mouth in the morning. 200 Tablet 3 05/14/2022 Active Mupirocin 2 % External Ointment (Bactroban) 0 03/23/2022 Acti ve Vitamin D (Ergocalciferol) 1.25 MG (09398 UT) Oral Capsule (Drisdol) take 1 capsule [...] [place], goal below 140/90,PAF (paroxysmal atrial fibrillation) (HCC) Take 2 tablets (40mg) in AM and [...] Pain, Moderate. 30 Tablet 0 03/25/2023 Active documented as of this encounter (statuses as of 04/09/2023) Active Problems Problem Noted Date Diagnosed Date [...] Overview: Added automatically from request for surgery [id number] 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 [...] as of this encounter (statuses as of 04/09/2023) Resolved Problems Problem Noted Date Diagnosed Date [...] Silent myocardial infarction 03/23/2013 11/08/2018 Accelerate Clinical Trial*[id number] 01/24/2013 05/16/2015 Overview: ACCELERATE STUDY. Project # [id number], SUPERVISOR PICKING CREW: Ben Hoover MD. CRC: DEBORAH Back. SUMMARY: To test the hypothesis that Evacetrapib 130 mg, in comparison to placebo, reduces the risk of major adverse coronary events in high-risk vascular disease patients. CONTACTS: During normal business hours, contact study staff at ; after hours Patrol Community Service Officer via the [facility] hospital electric dolly operator [phone]. 24-hour Global Study Helpline: [phone]. Lipid levels should not be ordered/obtained while this subject is in the Accelerate study. Lipids are being managed in a blinded fashion. If lipid levels are inadvertently obtained, it is important that test results are NOT provided to the patient, study doctor, practical nurse clinical coordinator, or other study team members. Restricted meds while in the study: 1) niacin > 250 mg, 2) gemfibrozil with a potent [id number]. NINA on CPAP 06/28/2012 01/31/2020 Overview: 06/28/12 [...] as of this encounter (statuses as of 04/09/2023) Immunizations Name Administration Dates Next Due COVID-19 [...] shopping? (15 years old or older) Yes 09/14/20 21 Cognitive Status Response Date of Assessm ent Because of a physical, menta l, or emotional condition, do you have serious difficulty concentrating, remembering, or making decisions? (5 years old or older) No 01/08/2021 documented as of this encounter Progress Notes * Joaquina Anthony EPC - 04/09/2023 10:53 AM EST Session Encounter: [facility] is [facility] Int[facility] in partnership with [employer] is a specialized [employer] that specializes in providing virtual cardiac rehab services. Session #50 completed. Please refer to scan document for session details. Session type: Exercise Individual Session duration: 35 minutes documented in this encounter Plan of Treatment Upcoming Encounters Date Type Department Care Team (Late st Contact Info) Description 04/13/2023 9:00 AM EST Laboratory Lab Mobile Phlebotomy [facility] [address] [place] [address] [facility], [facility] Mobile Home Draw [address] [place] [address] 04/14/2023 6:00 AM EST Anticoagulation Pharmacy Call Center [address] [place] [address] [facility] [address] [place] [address] 04/15/2023 1:30 PM EST Office Visit Cardiology, [facility] [address] [place] [address] Imer Maya DO [address] [place] [address] Scheduled Procedures Name Priority Associated Diagnoses Date/Ti me COLONOSCOPY FLEXIBLE PROXIMAL DIAGNOSTIC Recall History of colon polyps Health Maintenance Due Date Last Done Comments Depression Screening 08/16/2022 08/16/2021 Diabetic Foot Exam 08/16/2022 08/16/2021, 0 05/02/2020, 11/08/2018, Additional history exists CKD PHOS USE SMARTSET 48919 11/06/202210/25, 09/12/2020, 07/12/2020, Additional history exists COVID-19 [...] Additional history exists CKD HGB USE SMARTSET 78898 12/25/202312/24, 08/15/2022, 03/26/2022, Additional history exists DTaP,Tdap,and [...] as of this encounter Visit Diagnoses Diagnosis Heart failure, unspecified HF chronicity, unspecified heart failure type (HCC)- Primary documented in this encounter Advance [...] the patient have Health Care Power of Cheerleading Coach? No Full Code 12/05/2019 3:06 PM 12/05/2019 [...] the patient have Health Care Power of Cheerleading Coach? Yes, not currently available Full Code 06/08/2019 4:36 AM 06/14/2019 4:10 PM This order reflects the patients wishes and were consensually agreed upon. Question Answer Comments Discussion of Advance Directives occurred with: Not Discussed Does the patient have a Living Will? No Does the patient have Health Care Power of Cheerleading Coach? No Healthcare Agents on File Name Relationship Healthcare Agent Relationshi p Communication Omar Lyle Adult Child [facility] Health [facility] re Agent Xi Lyle Adult Child Health Care Agent Care Teams Procurement Technician Relationship Specialty Start Date End Date Sherry Maya DO [address] [place] [address] PCP - General Family Medicine 11/12/11 documented as of this encounter
--- OUTSIDE RECORDS SUMMARY | 2023-05-19 00:36 | External Medical Summary | Summary of Care ---
Author Name Unknown Organization [facility] Address [address] [place] [address] Phone [phone] Care Team Providers Care Shadowgraph Operator Name Role Phone Sherry Maya DO Primary Care Provider + [phone] Reason for Referral * Ancillary Services (Within 10 days (routine)) - Authorized Specialty Diagnoses / Procedures Referred By Contac t Referred To Contact Admissions Advisor Diagnoses DM type 2, not at goal (HCC) Heart failure, systolic, due to CAD Carolee Manriquez PA-C [address] [place] [address] Referral ID Status Reason Start Date Expiration Date Visits Requested Visits Authorized [id number] Authorized Ancillary Services Required 3 [phone] Question Answer Referral Priority Within 10 days (routine) Where should this appointment be scheduled? Jessica Comments Is Patient homebound? Yes All sections of this form must be filled out completely. Forms with missing or illegible information will be returned for completion. This form should not be modified in any way. Forms that have been modified will be returned. This form may not be submitted by a home health agency. It must be complete and submitted by the ordering provider. One full business day lead time is required and service will be scheduled based on the next service day for the [facility] Home Phlebotomy does not service every geographical location on a daily basis. Contact [facility] Client Services at to find out service days for a specific location. Medical Laboratory [address] [place] [address] Davi Wasserman M.D. Director and Business Ethics Professor Patient Name: Ben Lyle : 1965 Sex: male Address [address] [facility] [place] [address] Provider: Edna Baum [facility] Tech? Sherry Maya, DO? Diagnosis: E11.9 DM, UNCONTROLLED, TYPE II (primary encounter diagnosis) I50.20,I25.10 Heart failure, systolic, due to CAD Z89.512 S/P BKA (below knee amputation) unilateral, left (HCC) R60.9 Edema, unspecified type M25.561 Acute pain of right knee Tests Requested Cbc, cmp Please draw next week (week of ) * Evaluate & Treat - Unlimited Visits (Within 10 days (routine)) - Authorized Specialty Diagnoses / Procedures Referred By Magdy clark Referred To Contact Orthopaedic Surgery / Orthopedics Diagnoses Acute pain of right knee Carolee Manriquez PA-C [address] [place] [address] Referral ID Status Reason Start Date Expiration Date Visits Requested Visits Authorized [id number] Authorized Specialty Services Required 3 [phone] Question Answer Referral Priority Within 10 days (routine) Where should this appointment be scheduled? [facility] What body part is the patient being seen for? Thigh/Knee What condition is the patient being seen for? Sprain/Strain/Tear/Other Reason for Visit * Reason Comments [facility]: Telehealth Encounter Details Date Type Department Care Team (Late st Contact Info) Description 04/09/2023 8:00 AM EST Telemedicine [facility], [place] [address] [place] [address] Carolee Manriquez PA-C [address] [place] [address] Edna Baum [facility] [address] [place] [address] DM, UNCONTROLLED, TYPE II*; Heart failure, systolic, due to CAD ; S/P BKA (below knee amputation) unilateral, left ([facility]); Edema, unspecified type; Acute pain of right knee; Other eczema Allergies Active Allergy Reactions Criticality Noted Date Comments Benzonatate 12/08/2016 choking Keyanna Pedraza Other (Please comment) High 04/10/20 09 Choking documented as of this encounter (statuses as of 04/09/2023) Medications Medication Sig Dispensed Refills Start Date End Date Status [facility] MISCIndications:DM type 2, not at goal ([facility]) 3 Box Dosing Unit 1 [...] Patient not taking.Reported on 04/09/2023 Glucose Blood (ThromboVisionTOUCH VERIO) STRP USE TO TEST BLOOD GLUCOSE [...] Active WalkerIndications:Oste omyelitis of foot, left, acute ([facility]),Diabetic polyneuropathy associated with diabetes mellitus due to underlying condition ([facility]),Ulcer of right foot with [...] in the morning. 200 Tablet 3 3 Active Mupirocin 2 % External Ointment (Bactroban) 0 2 Active Vitamin D (Ergocalciferol) 1.25 MG (67775 UT) Oral Capsule (Drisdol) take 1 capsule [...] the tramadol). 30 Tablet 0 3 Active traMADol HCl [...] the morning. 30 Tablet 3 3 Active Triamcinolone Acetonide 0.1 % External Lotion (Aristocort)Indication s:Other eczema Apply topically to affected area 2 times a day . To affected area. 60 mL 5 2 04/09/20 Discontinu ed(Refill) Empagliflozin 25 MG Oral Tablet (Jardiance) Take 1 Tablet by mouth in the morning. 0 04/09/20 Discontinu ed(Refill) documented as of this encounter [...] Overview: Added automatically from request for surgery [id number] 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 [...] Silent myocardial infarction 03/23/2013 11/08/2018 Accelerate Clinical Trial*[id number] 01/24/2013 05/16/2015 Overview: ACCELERATE STUDY. Project # [id number], SYSTEM SPECIALIST: Ben Hoover MD. CRC: DEBORAH Back. SUMMARY: To test the hypothesis that Evacetrapib 130 mg, in comparison to placebo, reduces the risk of major adverse coronary events in high-risk vascular disease patients. CONTACTS: During normal business hours, contact study staff at ; after hours Africana Studies Professor via the [facility] hospital audiovisual equipment operator [phone]. 24-hour Global Study Helpline: [phone]. Lipid levels should not be ordered/obtained while this subject is in the Accelerate study. Lipids are being managed in a blinded fashion. If lipid levels are inadvertently obtained, it is important that test results are NOT provided to the patient, study doctor, office coordinator, or other study team members. Restricted meds while in the study: 1) niacin > 250 mg, 2) gemfibrozil with a potent [id number]. NINA on CPAP 06/28/2012 01/31/2020 Overview: 06/28/12 [...] Rotator cuff syndrome 04/03/20082010 Statin intolerance 09/08/2006 10/25/201 8 Dyslipidemia, goal to be determined 08/01/2003 [...] on file documented as of this encounter Last Filed Vital Signs Vital Sign Reading Time Taken Comments Blood Pressure 115/80 04/09/2023 9:07 AM EST Pulse 88 04/09/2023 9:07 AM EST Temperature 36.5 C (97.7 F) 04/09/2023 9:07 AM ES T Respiratory Rate 20 04/09/2023 9:07 AM EST Oxygen Saturation 93% 04/09/2023 9:07 AM EST Inhaled Oxygen Concentration - - Weight - - Height - - Body Mass Index - - documented in this encounter Functional Status Functional Status Response [...] as of this encounter Progress Notes * Edna Baum [facility] - 04/09/2023 9:49 AM EST Telemedicine visit: Yes Patient location: HOME. I was not in a hospital or clinic location. After connecting through televideo, patient was verified with two unique identifiers. 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 Methods to assure confidentiality were taken. Patient acknowledged consent and understanding of privacy and security of the Telemedicine visit. The patient agreed to participate. [facility] Tech (CONNER) documentation: Assisted with telehealth visit. * Carolee Manriquez PA-C - 04/09/2023 9:03 AM EST [facility] Provider Telemedicine Visit Date: 04/09/2023 Time: 9:03 AM Assessment/Plan: 1. DM, UNCONTROLLED, TYPE II Follows with Endocrinology and [place] [facility] 2. Heart failure, systolic, due to CAD Follow with Cardiology Taking Entresto, Jardiance, Metoprolol, Spironolactone and Torsemide 3. S/P BKA (below knee amputation) unilateral, left (HCC) Advised to apply triamcinolone lotion as he has dermatitis noted 4. Edema, unspecified type Difficult to say if patient has lymphedema due to body habitus. He has increased edema to stump and cannot get his prosthetic on. Advised to double Torsemide with added K X 3 days 5. Acute pain of right knee - ORTHOPAEDICS REFERRAL OP Follow up plan: Will follow up in one month. Patient has increased LE edema and abdominal bloating.He has been unable to get his prosthesis on as the stump is edematous. No S/S of infection today. Advised to double Torsemide for 3 days with added potassium. Will place orders to recheck labs. Orthoreferral placed as he fell a couple weeks ago and has had persistent right knee pain. He tells me he was evaluated at [facility] and had negative radiographs. A total of 55 minutes was spent face to face via video-based telemedicine. Subjective Patient location: HOME. I was not in a hospital or clinic location. After connecting through televideo, patient was verified with two unique identifiers. 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 Methods to assure confidentiality were taken. Patient acknowledged consent and understandingof privacy and security of the Telemedicine visit. The patient agreed to participate. Reason for Visit: Initial Visit Current Concerns: Ben Lyle is a 57 year old male seen today for a [facility] Telemedicine Provider Visit. Date of last known acute care visit: 03/26/23 with Endocrinology Reason for last known acute care visit: Patient is a poorly controlled diabetic. He is s/p left BKA. Recent concerns of stump infection. Hewas started on Keflex. He has HH services on board. He is unable to get out of the house for visitsat this time. Most of his health care is performed out of the [facility] system. Chart review was limited. Today's concerns are: Patient states he is not doing very well at home right now. He has edema to the left stump and is unable to get his prosthetic leg on. He has noticed increased edema to the RLE and has abdominal bloating. No changes noted in breathing. No CP/SOB or RINALDI. He tells me he got a new silicone liner for the prosthetic and he had a reaction to it. He developed a red itchy rash and edema. He is currently t aking Keflex. There are 2 small wounds noted to the side of the stump. No drainage. He has been applying lotion to his legs as they are dry. He is currently taking Spironolactone and Torsemide daily.He tells me he fell a couple weeks ago when trying to transfer from [facility]. He landed on his right knee. He was evaluated at [facility] and had negative x-rays of the knee. He states he has had continual pain to the knee with straightening and bending. It is improved but still present. No changes in bowel or urinary habits. Appetite isn't great. BG runs in the 200's for most part. He is in need of new insulin pump in the future and is working with Endocrinology. He lost his insurance pr escription coverage and will have it again the beginning of the year. He hasn't been taking some ofhis medication due to inability to pay for it. ROS: See HPI Objective Physical Exam: BP 115/80 (BP Site: Right Arm, BP Position: Sitting, BP Cuff Size: Large) | Pulse 88 | Temp 36.5 C (97.7 F) (Infrared ) | Resp 20 | SpO2 93% Previous Wts: Wt Readings from Last 5 Encounters: 01/23/23 (!) 185.1 kg (408 lb) 12/24/22 (!) 188.8 kg (416 lb 3.2 oz) 09/15/22 (!) 188.9 kg (416 lb 6.4 oz) 08/15/22 (!) 185.9 kg (409 lb 12.8 oz) 03/26/22 (!) 186.4 kg (411 lb) Previous BPs: BP Readings from Last 5 Encounters: 04/09/23 115/80 01/23/23 138/92 12/24/22 128/64 12/16/22 104/70 09/15/22 142/74 Physical Exam Constitutional: General: He is not in acute distress. HENT: Head: Normocephalic and atraumatic. Nose: Nose normal. Mouth/Throat: Pharynx: Oropharynx is clear. Eyes: Extraocular Movements: Extraocular movements intact. Conjunctiva/sclera: Conjunctivae normal. Cardiovascular: Rate and Rhythm: Normal rate. Rhythm irregular. Pulmonary: Effort: Pulmonary effort is normal. No respiratory distress. Breath sounds: Normal breath sounds. Musculoskeletal: Comments: Left stump: 2 small open wounds noted to lateral side, no surrounding erythema, + dermatitis. RLE: ? Lymphedema, no pitting edema noted, no erythema Neurological: General: No focal deficit present. Mental Status: He is alert and oriented to person, place, and time. Diagnostic Data Review: Hematology Lab Results Component Value Date/Time WBC AUTO - [facility] 7.26 12/24/2022 09:09 AM WBC AUTO - [facility] 8.19 08/15/2022 11:41 AM WBC AUTO - [facility] 9.61 03/26/2022 09:46 AM WBC AUTO - [facility] 9.58 05/03/2020 03:17 PM WBC AUTO - [facility] 8.06 12/06/2019 05:10 AM WBC AUTO - [facility] 9.69 11/30/2019 10:12 AM Lab Results Component Value Date/Time HGB - [facility] 14.7 12/24/2022 09:09 AM HGB - [facility] 15.0 08/15/2022 11:41 AM HGB - [facility] 15.8 03/26/2022 09:46 AM HGB - [facility] 13.6 (L) 05/03/2020 03:17 PM HGB - [facility] 12.9 (L) 12/06/2019 05:10 AM HGB - [facility] 13.8 (L) 11/30/2019 10:12 AM Lab Results Component Value Date/Time HCT - [facility] 48.4 12/24/2022 09:09 AM HCT - [facility] 48.7 (H) 08/15/2022 11:41 AM HCT - [facility] 49.7 (H) 03/26/2022 09:46 AM HCT - [facility] 42.7 05/03/2020 03:17 PM HCT - [facility] 40.3 12/06/2019 05:10 AM HCT - [facility] 43.7 11/30/2019 10:12 AM Lab Results Component Value Date/Time PLATELET AUTO - [facility] 205 12/24/2022 09:09 AM PLATELET AUTO - [facility] 242 08/15/2022 11:41 AM PLATELET AUTO - [facility] 301 03/26/2022 09:46 AM PLATELET AUTO - [facility] 227 05/03/2020 03:17 PM PLATELET AUTO - [facility] 193 12/06/2019 05:10 AM PLATELET AUTO - [facility] 240 11/30/2019 10:12 AM Lab Results Component Value Date/Time IRON - [facility] 43 (L) 08/15/2022 11:41 AM Lab Results Component Value Date/Time TRANSFERRIN SATURATION PERCENT - [facility] 16 08/15/2022 11:41 AM No results found for: "TRANSFERRIN - [facility]" Lab Results Component Value Date/Time VITAMIN B12 - [facility] 480 10/18/2020 11:31 AM VITAMIN B12 - [facility] 518 11/07/2015 04:27 PM Chemistry/Renal Lab Results Component Value Date/Time SODIUM - [facility] 133 (L) 03/27/2023 08:04 AM SODIUM - [facility] 139 12/24/2022 09:09 AM SODIUM - [facility] 141 05/03/2020 03:17 PM SODIUM - [facility] 138 01/30/2020 01:23 PM Lab Results Component Value Date/Time POTASSIUM - [facility] 5.6 (H) 03/27/2023 08:04 AM POTASSIUM - [facility] 4.7 12/24/2022 09:09 AM POTASSIUM - [facility] 3.9 05/03/2020 03:17 PM POTASSIUM - [facility] 3.8 01/30/2020 01:23 PM Lab Results Component Value Date/Time PHOSPHORUS - [facility] 3.2 11/06/2021 02:09 PM PHOSPHORUS - [facility] 2.6 09/12/2020 02:54 PM PHOSPHORUS - [facility] 4.3 07/13/2019 12:44 PM PHOSPHORUS - [facility] 3.4 06/13/2019 05:27 AM Lab Results Component Value Date/Time MAGNESIUM - [facility] 2.3 08/15/2022 11:41 AM MAGNESIUM - [facility] 1.8 09/12/2020 02:54 PM MAGNESIUM - [facility] 2.6 12/16/2019 04:02 PM MAGNESIUM - [facility] 2.1 09/01/2019 02:39 PM Lab Results Component Value Date/Time BUN - [facility] 25 (H) 03/27/2023 08:04 AM BUN - [facility] 27 (H) 12/24/2022 09:09 AM BUN - [facility] 20 08/08/2022 07:25 AM BUN - [facility] 37 (H) 05/03/2020 03:17 PM BUN - [facility] 36 (H) 01/30/2020 01:23 PM BUN - [facility] 37 (H) 12/16/2019 04:02 PM Lab Results Component Value Date/Time CREATININE - [facility] 1.2 03/27/2023 08:04 AM CREATININE - [facility] 1.6 (H) 12/24/2022 09:09 AM CREATININE - [facility] 1.3 (H) 08/08/2022 07:25 AM CREATININE - [facility] 1.8 (H) 05/03/2020 03:17 PM CREATININE - [facility] 1.7 (H) 01/30/2020 01:23 PM CREATININE - [facility] 2.0 (H) 12/16/2019 04:02 PM Lab Results Component Value Date/Time ESTIMATED GLOMERULAR FILTRATION RATE - [facility] 73 03/27/2023 08:04 AM ESTIMATED GLOMERULAR FILTRATION RATE - [facility] 49 (L) 12/24/2022 09:09 AM ESTIMATED GLOMERULAR FILTRATION RATE - [facility] 66 08/08/2022 07:25 AM ESTIMATED GLOMERULAR FILTRATION RATE - [facility] 42.0 (L) 05/03/2020 03:17 PM ESTIMATED GLOMERULAR FILTRATION RATE - [facility] 44.4 (L) 01/30/2020 01:23 PM ESTIMATED GLOMERULAR FILTRATION RATE - [facility] 35.8 (L) 12/16/2019 04:02 PM ESTIMATED GLOMERULAR FILTRATION RATE - [facility] >60.0 05/16/2013 12:59 PM ESTIMATED GLOMERULAR FILTRATION RATE - [facility] >60.0 02/18/2013 02:24 PM ESTIMATED GLOMERULAR FILTRATION RATE - [facility] >60.0 02/09/2013 11:57 AM Lab Results Component Value Date/Time PTH - [facility] 72 (H) 07/12/2020 02:38 PM PTH - [facility] 91 (H) 07/28/2018 09:55 AM Liver Lab Results Component Value Date/Time AST - [facility] 23 08/08/2022 07:25 AM AST - [facility] 21 11/06/2021 02:09 PM AST - [facility] 24 09/01/2019 02:39 PM AST - [facility] 18 01/26/2019 07:57 AM Lab Results Component Value Date/Time ALT - [facility] 19 08/08/2022 07:25 AM ALT - [facility] 22 11/06/2021 02:09 PM ALT - [facility] 20 09/01/2019 02:39 PM ALT - [facility] 23 01/26/2019 07:57 AM Lab Results Component Value Date/Time ALKALINE PHOSPHATASE - [facility] 124 08/08/2022 07:25 AM ALKALINE PHOSPHATASE - [facility] 123 11/06/2021 02:09 PM ALKALINE PHOSPHATASE - [facility] 121 09/01/2019 02:39 PM ALKALINE PHOSPHATASE - [facility] 97 01/26/2019 07:57 AM Lab Results Component Value Date/Time BILIRUBIN, DIRECT - [facility] 0.3 08/29/2020 01:14 PM BILIRUBIN, DIRECT - [facility] <0.2 09/01/2019 02:39 PM BILIRUBIN, TOTAL NEGATIVE 03/14/1996 12:00 PM BILIRUBIN, TOTAL - [facility] 0.4 08/08/2022 07:25 AM BILIRUBIN, TOTAL - [facility] 0.5 11/06/2021 02:09 PM BILIRUBIN, TOTAL - [facility] 0.5 09/01/2019 02:39 PM BILIRUBIN, TOTAL - [facility] 0.5 01/26/2019 07:57 AM BILIRUBIN, URINE - [facility] Negative 01/21/2021 10:48 AM BILIRUBIN, URINE - [facility] NEGATIVE 07/13/2019 12:44 PM BILIRUBIN-TOTAL 0.7 03/14/1996 12:00 PM Cardiac Lab Results Component Value Date/Time PRO BNP 139 01/22/2015 10:49 AM Lab Results Component Value Date/Time LEFT VENTRICULAR EJECTION FRACTION 35 06/09/2019 08:37 AM Lab Results Component Value Date/Time HDL CHOLESTEROL - [facility] 30 (L) 08/08/2022 07:25 AM HDL CHOLESTEROL - [facility] 33 (L) 01/26/2019 08:02 AM Lab Results Component Value Date/Time NON-HDL CHOLESTEROL - [facility] 99 08/08/2022 07:25 AM Endocrine Lab Results Component Value Date/Time HEMOGLOBIN A1C - [facility] 8.6 (H) 03/27/2023 08:04 AM HEMOGLOBIN A1C - [facility] 8.3 (H) 08/08/2022 07:25 AM HEMOGLOBIN A1C - [facility] 8.3 (H) 01/30/2020 01:23 PM HEMOGLOBIN A1C - [facility] 8.7 (H) 12/06/2019 05:10 AM Lab Results Component Value Date/Time ESTIMATED AVERAGE GLUCOSE - [facility] 200 (H) 03/27/2023 08:04 AM ESTIMATED AVERAGE GLUCOSE - [facility] 192 (H) 08/08/2022 07:25 AM Lab Results Component Value Date/Time TSH - [facility] 2.43 08/08/2022 07:25 AM TSH - [facility] 5.06 (H) 11/15/2020 02:21 PM TSH - [facility] 0.66 05/03/2020 03:17 PM TSH - [facility] 2.31 01/30/2020 01:23 PM Lab Results Component Value Date/Time T4, FREE - [facility] 1.3 11/15/2020 02:21 PM T4, FREE - [facility] 1.5 08/29/2020 01:14 PM T4, FREE - [facility] 1.90 (H) 08/25/2017 11:31 AM T4, FREE - [facility] 1.21 07/08/2011 09:17 AM Medication Review: Current Outpatient Medications Medication Sig Dispense Refill ONETOUCH LANCETS MISC 3 Box Dosing Unit 1 Nitroglycerin 0.4 MG Sublingual Tablet Sublingual Place under the tongue every 5 minutes as needed.Up to 3 in 15 minutes. 25 Tab 11 Magnesium Oxide 400 MG Capsule Take 1 Cap by mouth daily. (Patient taking differently: Take 1 Capsule by mouth in the morning. Taking over the counter 500 mg daily.) 30 Cap 5 Glucose Blood (ONETOUCH VERIO) STRP USE TO TEST BLOOD GLUCOSE 8 TIMES A DAY 800 Strip 3 Insulin Aspart 100 UNIT/ML Injection Solution Inject under the skin. FOR USE IN PUMP OneTouch Verio Flex System w/Device Kit Use as directed. Diclofenac Sodium 1 % External Gel (Voltaren) Apply topically to affected area daily. Apply to hands 100 g 0 polyethylene glycol 3350 119 gram PO POWD Take 119 g by mouth daily as needed for Constipation. Mayuse up to 2-3 times per day as needed. BiPAP every night at bedtime. Walker Bariatric heavy duty walker- 2 wheels- please document patient's weight at 308 1 Each 0 DIURETIC TITRATION PLAN If no improvement on day 3, contact heart failure managing provider. 1 Each0 Loratadine 10 MG Oral Tablet (Claritin) Take 1 Tablet by mouth daily. 100 Tablet 3 Trulicity 1.5 MG/0.5ML Subcutaneous Solution Pen-injector Inject 1.5 mg under the skin once a week.6 mL 3 Metoprolol Succinate ER 25 MG Oral Tablet Extended Release 24 Hour (Toprol XL) Take 1 Tablet by mouth 2 times a day. 200 Tablet 3 Albuterol Sulfate 108 (90 Base) MCG/ACT Inhalation Aerosol Powder Breath Activated Inhale 2 Puffs by mouth 4 times a day as needed for Wheezing. 3 Each 3 Aspirin 81 MG Oral Tablet Chewable Take 1 Tablet by mouth daily. With food. 100 Tablet 5 Acetaminophen 325 MG Oral Tablet (Tylenol) Take 2 Tablets by mouth as needed (for mild to moderate reaction (infusion reaction protocol)). 2 Tablet 11 Ammonium Lactate 12 % External Lotion (Lac-Hydrin) Apply topically to affected area as needed for Dry Skin. Apply to rash on legs 400 g 1 Meclizine HCl 12.5 MG Oral Tablet (Antivert) Take by mouth 1 Tablet as needed in the morning AND 1 Tablet as needed at noon AND 1 Tablet as needed in the evening for Dizziness. 30 Tablet 1 Fluticasone Propionate 50 MCG/ACT Nasal Suspension Administer into each nostril 2 Sprays in the morning. Administer 2 Sprays into each nostril daily.. 9.9 mL 10 Triamcinolone Acetonide 0.1 % External Lotion (Aristocort) Apply topically to affected area 2 timesa day . To affected area. (Patient not taking: Reported on 12/24/2022) 60 mL 5 Empagliflozin 25 MG Oral Tablet (Jardiance) Take 1 Tablet by mouth in the morning. Atorvastatin Calcium 80 MG Oral Tablet (Lipitor) Take 1 Tablet by mouth in the morning. 100 Tablet 3 Potassium Chloride Tiffanie ER 10 MEQ Oral Tablet Extended Release Take 2 Tablets by mouth in the morning. 200 Tablet 3 Mupirocin 2 % External Ointment (Bactroban) Vitamin D (Ergocalciferol) 1.25 MG (95937 UT) Oral Capsule (Drisdol) take 1 capsule by mouth every week 12 Capsule 3 Spironolactone 25 MG Oral Tablet (Aldactone) Take 1 Tablet by mouth in the morning. 100 Tablet 3 Warfarin Sodium 2 MG Oral Tablet (Coumadin) Take 1.5 to 2 tablets (3mg to 4mg) by mouth daily as instructed by Coumadin clinic (change in tablet strength from 1mg to 2mg) 180 Tablet 3 Metoprolol Succinate ER 50 MG Oral Tablet Extended Release 24 Hour (toPROL XL) Take 1 Tablet by mouth in the morning and 1 Tablet before bedtime. Total of 75mg twice daily. 200 Tablet 3 Gabapentin 300 MG Oral Capsule (Neurontin) Take 1 Capsule by mouth in the morning and 1 Capsule at noon and 1 Capsule before bedtime. 300 Capsule 3 Ferrous Sulfate 325 (65 Fe) MG Oral Tablet (Feosol) Take 1 Tablet by mouth in the morning and 1 Tablet before bedtime. 60 Tablet 11 Torsemide 20 MG Oral Tablet (Demadex) Take 2 tablets (40mg) in AM and 20mg in the afternoon. 270 Tablet 3 Clobetasol Propionate 0.05 % External Cream (Temovate) APPLY TO AFFECTED AREA(S) TWO TIMES A DAY 15g 5 Omeprazole 20 MG Oral Capsule Delayed Release (PriLOSEC) TAKE ONE CAPSULE BY MOUTH ONCE DAILY 100 Capsule 1 Sacubitril-Valsartan 24-26 MG Oral Tablet (Entresto) TAKE ONE TABLET BY MOUTH EVERY MORNING AND TAKE ONE TABLET BY MOUTH EVERY DAY BEFORE BEDTIME 200 Tablet 3 Levothyroxine Sodium 88 MCG Oral Tablet (Levoxyl) TAKE ONE TABLET BY MOUTH IN THE MORNING AT LEAST 30 MINS PRIOR TO BREAKFAST OR OTHER MEDS 100 Tablet 5 HYDROcodone-Acetaminophen 10-325 MG Oral Tablet Take 1 Tablet by mouth every 6 hours as needed for Other (break thru pain, and do not take with the tramadol). 30 Tablet 0 traMADol HCl 50 MG Oral Tablet (Ultram) Take 1 Tablet by mouth every 6 hours as needed for Pain, Moderate. 30 Tablet 0 HYDROcodone-Acetaminophen 5-325 MG Oral Tablet Take 1 Tablet by mouth every 6 hours as needed for Pain, Severe. 60 Tablet 0 Cephalexin 500 MG Oral Capsule (Keflex) Take 1 Capsule by mouth in the morning and 1 Capsule at noon and 1 Capsule before bedtime. No current facility-administered medications for this visit. Mobility Evaluation: MACH10 Assessment: Assistive Devices Used in the Home: Walker (standard or rollator) Manual Wheelchair Recent Falls: Falls in the last 6 months: Yes - When last fall occurred: 2 weeks ago [facility]: DME (Durable Medical Equipment) needs Emergency Vehicle Driver Services / Assistance with ADLs and Self-Care Routine Transportation Urgent Transportation Social Isolation Carolee Mckeon PA-C 9:03 AM *Communication sent to PCP (via autofax if [facility]), Population Health Care Team members, relevant Specialty Care Physicians* documented in this encounter Plan of Treatment Upcoming Encounters Date Type Department Care Team (Late st Contact Info) Description 04/13/2023 9:00 AM EST Laboratory Lab [facility]omy [facility] [address] [place] [address] [facility], [place] Mobile Home Draw [address], [place] [id number] 04/14/2023 6:00 AM EST Anticoagulation Pharmacy Call Center 58-[address] [facility] [place] [address] [facility] 58 [address] [place] [address] 04/15/2023 1:30 PM EST Office Visit Cardiology, [facility] [address] [place] [address] Imer Maya DO [address] [facility] [address] 05/14/2023 1:30 PM EST Telemedicine [facility] [place], [place] [address] [place] [address] Carolee Manriquez PA-C [address] [place] [address] Edna Baum, [facility] Tech [address] [place] [address] Scheduled Orders Name Type Priority Associated Diagnoses Orde r Schedule CBC WITH WBC DIFFERENTIAL AND ANEMIA REFLEX WORKUP Lab Routine DM, UNCONTROLLED, TYPE II Heart failure, systolic, due to CAD Expected: 04/09/2023 (Approximate), Expires: 04/09/2024 COMPREHENSIVE METABOLIC PANEL Lab Routine DM, UNCONTROLLED, TYPE II Heart failure, systolic, due to CAD Expected: 04/09/2023 (Approximate), Expires: 04/08/2024 Scheduled Procedures Name Priority Associated Diagnoses Date/Ti me COLONOSCOPY FLEXIBLE PROXIMAL DIAGNOSTIC Recall History of colon polyps Scheduled Referrals Name Type Priority Associated Diagnoses Order Schedule ORTHOPAEDICS REFERRAL OP Referral Within 10 days (routine) Acute pain of right knee Ordered: 04/09/2023 HOME PHLEBOTOMY REFERRAL OP Referral Within 10 days (routine) DM, UNCONTROLLED, TYPE II Heart failure, systolic, due to CAD Ordered: 04/09/2023 Health Maintenance Due Date Last Done Comments Depression Screening 08/16/2022 08/16/2021 Diabetic Foot Exam 08/16/2022 08/16/2021, 0 05/02/2020, 11/08/2018, Additional history exists CKD PHOS USE SMARTSET 11190 11/06/202210/25, 09/12/2020, 07/12/2020, Additional history exists COVID-19 [...] Additional history exists CKD HGB USE SMARTSET 18755 12/25/202312/24, 08/15/2022, 03/26/2022, Additional history exists DTaP,Tdap,and [...] as of this encounter Visit Diagnoses Diagnosis DM, UNCONTROLLED, TYPE II- Primary Type II or unspecified type diabetes mellitus without mention of complication, not stated as uncontrolled Heart failure, systolic, due to CAD Unspecified systolic heart failure S/P BKA (below knee amputation) unilateral, left (HCC) Edema, unspecified type Acute pain of right knee Other eczema documented in this encounter Advance Directives Latest [...] the patient have Health Care Power of Customer Specialist? No Full Code 12/05/2019 3:06 PM 12/05/2019 [...] the patient have Health Care Power of Customer Specialist? Yes, not currently available Full Code 06/08/2019 4:36 AM 06/14/2019 4:10 PM This order reflects the patients wishes and were consensually agreed upon. Question Answer Comments Discussion of Advance Directives occurred with: Not Discussed Does the patient have a Living Will? No Does the patient have Health Care Power of Customer Specialist? No Healthcare Agents on File Name Relationship Healthcare Agent Relationshi p Communication Omar Lyle Adult Child [facility] re Agent Xi Mckeont Adult Child [facility] Care Agent Care Teams Shadowgraph Operator Relationship Specialty Start Date End Date Sherry Maya DO [address] [place] [address] PCP - General Family Medicine 11/12/11 documented as of this encounter
--- OUTSIDE RECORDS SUMMARY | 2023-05-19 00:36 | External Medical Summary | Summary of Care ---
Author Name Unknown Organization [facility] Address [address] [place] [address] Phone [phone] Care Team Providers Care Sports Internship Name Role Phone Sherry Maya DO Primary Care Provider + [phone] Reason for Referral * Ancillary Services (Within 10 days (routine)) - Authorized Specialty Diagnoses / Procedures Referred By Contac t Referred To Contact Internal Combustion Engine Inspector Diagnoses DM type 2, not at goal (HCC) Heart failure, systolic, due to CAD Carolee Manriquez PA-C [address] [place] [address] Referral ID Status Reason Start Date Expiration Date Visits Requested Visits Authorized [id number] Authorized Ancillary Services Required 3 [phone] [...] on the next service day for the [facility] Home Phlebotomy does not service every geographical location on a daily basis. Contact [facility] Client Services at to find out service days for a specific location. Medical Laboratory [address] [place] [address] Davi Wasserman M.D. Director and Forestry Support Specialist Patient Name: Ben Lyle : 1965 Sex: male Address [address] [facility] [place] [address] Provider: Edna Baum [facility] Flame Hardener? Sherry Maya, DO? Diagnosis: E11.9 DM, UNCONTROLLED, [...] of right knee Carolee Manriquez PA-C [address] [place] [address] Referral ID Status Reason Start Date Expiration Date Visits Requested Visits Authorized [id number] Authorized Specialty Services Required 3 999 999 [...] 8:00 AM EST Telemedicine [facility], [place] [address] [place] [address] Carolee Manriquez PA-C [address] [place] [address] Edna Baum [facility] Flame Hardener [address] [place] [address] DM, UNCONTROLLED, TYPE II*; Heart failure, systolic, due to CAD ; S/P BKA (below knee amputation) unilateral, left ([facility]); Edema, unspecified type; Acute pain of right knee; Other eczema Allergies Active Allergy Reactions Criticality Noted Date Comments Benzonatate 12/08/2016 choking Keyanna Pedraza Other (Please comment) High 04/10/20 09 Choking documented as of this encounter (statuses as of 04/09/2023) Medications Medication Sig Dispensed Refills Start Date End Date Status [facility] MISCIndications:DM type 2, not at goal ([facility]) 3 Box Dosing Unit 1 5 Active [...] Patient not taking.Reported on 04/09/2023 Glucose Blood (DecoholicTOUCH VERIO) STRP USE TO TEST BLOOD GLUCOSE [...] foot, left, acute ([facility]),Diabetic polyneuropathy associated with diabetes mellitus due to underlying condition ([facility]),Ulcer of right foot with necrosis of muscle [...] 2 Active Vitamin D (Ergocalciferol) 1.25 MG (19884 UT) Oral Capsule (Drisdol) take 1 capsule [...] Overview: Added automatically from request for surgery [id number] 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 [...] Silent myocardial infarction 03/23/2013 11/08/2018 Accelerate Clinical Trial*[id number] 01/24/2013 05/16/2015 Overview: ACCELERATE STUDY. Project # [id number], CONTROL SYSTEMS DESIGNER: Ben Hoover MD. CRC: DEBORAH Back. SUMMARY: To test the hypothesis that Evacetrapib 130 mg, in comparison to placebo, reduces the risk of major adverse coronary events in high-risk vascular disease patients. CONTACTS: During normal business hours, contact study staff at ; after hours Ruling Machine Feeder via the [facility] hospital chemical treatment operator [phone]. 24-hour Global Study Helpline: [phone]. Lipid levels should not be ordered/obtained while this subject is in the Accelerate study. Lipids are being managed in a blinded fashion. If lipid levels are inadvertently obtained, it is important that test results are NOT provided to the patient, study doctor, customer care coordinator, or other study team members. Restricted meds while in the study: 1) niacin > 250 mg, 2) gemfibrozil with a potent [id number]. NINA on CPAP 06/28/2012 01/31/2020 Overview: 06/28/12 [...] Progress Notes * Edna Baum Community [facility] Flame Hardener - 04/09/2023 9:49 AM EST Telemedicine visit: Yes Patient location: HOME. I was not in a hospital or clinic location. After connecting through [facility], patient was verified with two unique identifiers. Patient (or authorized legal national sales representative) was then informed that this was a Telemedicine visit and being conducted confidentially over secure lines. Methods to assure confidentiality were taken. Patient acknowledged consent and understanding of privacy and security of the Telemedicine visit. The patient agreed to participate. Community Health Flame Hardener (CONNER) documentation: Assisted with telehealth visit. Assisted pt. With filling out MA paperwork. * Carolee Manriquez PA-C - 04/09/2023 9:03 AM EST [facility] Provider Telemedicine Visit Date: 04/09/2023 Time: 9:03 [...] He tells me he was evaluated at [facility] and had negative radiographs. A total of 55 minutes was spent face to face via video-based telemedicine. Subjective Patient location: HOME. I was not in a hospital or clinic location. After connecting through [facility], patient was verified with two unique identifiers. Patient (or authorized legal national sales representative) was then informed that this was a Telemedicine visit and being conducted confidentially over secure lines. Methods to assure confidentiality were taken. Patient acknowledged consent and understanding of privacy and security of the Telemedicine visit. The patient agreed to participate. Reason for Visit: Initial Visit Current Concerns: Ben Lyle is a 57 year old male seen today for a [facility] Telemedicine Provider Visit. Date of last known [...] health care is performed out of the [facility] system. Chart review was limited. Today's concerns [...] weeks ago when trying to transfer [facility]. He landed on his right knee. He was evaluated at [facility] and had negative x-rays of the [...] Ointment (Bactroban) Vitamin D (Ergocalciferol) 1.25 MG (61663 UT) Oral Capsule (Drisdol) take 1 capsule [...] When last fall occurred: 2 weeks ago [facility]: DME (Durable Medical Equipment) needs Increment Manager Services / Assistance with ADLs and Self-Care [...] Laboratory Lab Mobile Phlebotomy [facility] [address] [place], [place] [id number] [facility], [facility] Mobile Home Draw [address] [place], [place] [id number] 04/14/2023 6:00 AM EST Anticoagulation Pharmacy Call Center [address] [place] [address] [facility] [address] [place] [address] 04/15/2023 1:30 PM EST Office Visit Cardiology, [facility] [address] [place] [address] Imer Maya, [address] [facility] [address] 05/14/2023 1:30 PM EST Telemedicine [facility], [place] [address] [place] [address] Carolee Manriquez PA-C [address] [place], [place] [phone] Edna Baum, Community Health Flame Hardener [address] [place] [address] Scheduled Orders Name Type Priority Associated Diagnoses [...] Additional history exists CKD PHOS USE SMARTSET 09110 11/06/202210/25, 09/12/2020, 07/12/2020, Additional history exists COVID-19 [...] Additional history exists CKD HGB USE SMARTSET 57407 12/25/202312/24, 08/15/2022, 03/26/2022, Additional history exists DTaP,Tdap,and [...] the patient have Health Care Power of Sugar Chipper Machine Operator? No Full Code 12/05/2019 3:06 [...] the patient have Health Care Power of Sugar Chipper Machine Operator? Yes, not currently available Full Code 06/08/2019 4:36 AM 06/14/2019 4:10 PM This order reflects the patients wishes and were consensually agreed upon. Question Answer Comments Discussion of Advance Directives occurred with: Not Discussed Does the patient have a Living Will? No Does the patient have Health Care Power of Sugar Chipper Machine Operator? No Healthcare Agents on File Name Relationship Healthcare Agent [facility] Communication Omar Lyle Adult Child [facility] re Agent [facility] Care Agent Care Teams Sports Internship Relationship Specialty Start Date End Date Sherry Maya DO [address] [place] [facility] [place] [address] PCP - General Family Medicine 11/12/11 documented as of this encounter
--- OUTSIDE RECORDS SUMMARY | 2023-05-19 00:36 | External Medical Summary | Summary of Care ---
Author Name Unknown Organization [facility] Address [address] [place] [address] Phone [phone] Care Team Providers Care Senior Electrical Engineer Name Role Phone David Maya DO Primary Care Provider Reason for Visit * Reason Onset Date Comments Medication Refill 04/09/2023 Encounter Details Date Type Department Care Team (Late st Contact Info) Description 04/09/2023 Refill [place] [address] [place] [address] David Maya DO [address] [place] [address] Ischemic cardiomyopathy Allergies Active Allergy [...] Patient not taking.Reported on 04/09/2023 Glucose Blood (Drimki VERIO) STRP USE TO TEST BLOOD GLUCOSE 8 TIMES A DAY 800 Strip 3 9 Active Insulin Aspart 100 UNIT/ML Injection Solution Inject under the skin. FOR USE IN PUMP 0 Active Beacon Health StrategiesToRebelMouse Verio Flex System w/Device Kit Use as [...] 2 Active Vitamin D (Ergocalciferol) 1.25 MG (99158 UT) Oral Capsule (Drisdol) take 1 capsule [...] [place], goal below 140/90,PAF (paroxysmal atrial fibrillation) ([facility]) Take 2 tablets (40mg) in AM [...] Tablet 3 3 04/09/20 23 Discontinu ed(Refill) documented as of this [...] Overview: Added automatically from request for surgery [id number] 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 [...] Silent myocardial infarction 03/23/2013 11/08/2018 Accelerate Clinical Trial*[id number] 01/24/2013 05/16/2015 Overview: ACCELERATE STUDY. Project # [id number], ROLLER PRINTER: Ben Hoover MD. CRC: DEBORAH Back. SUMMARY: To test the hypothesis that Evacetrapib 130 mg, in comparison to placebo, reduces the risk of major adverse coronary events in high-risk vascular disease patients. CONTACTS: During normal business hours, contact study staff at ; after hours Floor Covering Contractor via the [facility] hospital sawmilling operator [phone]. 24-hour Global Study Helpline: [phone]. Lipid levels should not be ordered/obtained while [...] 250 mg, 2) gemfibrozil with a potent [id number]. NINA on CPAP 06/28/2012 01/31/2020 Overview: 06/28/12 [...] Miscellaneous Notes * Telephone Encounter - David Maya DO - 04/10/2023 8:32 AM ESTSigned Prescriptions: Disp Refills Potassium Chloride Tiffanie ER 10 MEQ Oral Tab*200 Ta*0 Sig: Take 2 Tablets by mouth in the morning. Authorizing Provider: DAVID MAYA * Telephone Encounter - Girma Cifuentes, [facility] - 04/10/2023 7:48 AM ESTPending Prescriptions: Disp Refills Potassium Chloride Tiffanie ER 10 MEQ Oral Tab*200 Ta*0 Sig: Take 2 Tablets by mouth in the morning. * Telephone Encounter - Girma Cifuentes [facility] - 04/10/2023 7:42 AM EST Unable to [...] 04/13/23 Please advise. Thank You, Girma Oro [facility] Clinical Pharmacist Centralized Clinical Pharmacy Services (CCPS) (formerly Telepharmacy) 04/10/2023, 7:42 AM * Telephone Encounter - Girma Cifuentes [facility] - 04/10/2023 7:37 AM EST Pending Prescriptions: [...] 9:00 AM EST Laboratory Lab Mobile Phlebotomy [facility] [address] [place] [address] [facility], [facility] Mobile Home Draw [address] [place] [address] 04/14/2023 6:00 AM EST Anticoagulation Pharmacy Call Center [address] [facility] [place] [address] [facility] [address] [facility] R[place] [address] 04/15/2023 1:30 PM EST Office Visit Cardiology, [facility] [address] [place] [address] Imer Maya O, [address] [place] [address] 05/14/2023 1:30 PM EST [facility]medicine [facility], [place] [address] [place] [address] Carolee Manriquez PA-C [address] [place] [address] Edna Baum, Community Health Engine Lathe Operator [address] [place] [address] Scheduled Procedures Name Priority Associated Diagnoses Date/Ti me COLONOSCOPY FLEXIBLE PROXIMAL DIAGNOSTIC Recall History of colon polyps Health Maintenance Due Date Last Done Comments Depression Screening 08/16/2022 08/16/2021 Diabetic Foot Exam 08/16/2022 08/16/2021, 0 05/02/2020, 11/08/2018, Additional history exists CKD PHOS USE SMARTSET 92000 11/06/202210/25, 09/12/2020, 07/12/2020, Additional history exists COVID-19 [...] Additional history exists CKD HGB USE SMARTSET 63075 12/25/202312/24, 08/15/2022, 03/26/2022, Additional history exists DTaP,Tdap,and [...] the patient have Health Care Power of Institutional Custodian? No Full Code 12/05/2019 3:06 PM 12/05/2019 [...] the patient have Health Care Power of Institutional Custodian? Yes, not currently available Full Code 06/08/2019 4:36 AM 06/14/2019 4:10 PM This order reflects the patients wishes and were consensually agreed upon. Question Answer Comments Discussion of Advance Directives occurred with: Not Discussed Does the patient have a Living Will? No Does the patient have Health Care Power of Institutional Custodian? No Healthcare Agents on File Name Relationship Healthcare Agent [facility] Communication Omar Lyle Adult Child [facility] re Agent Xi Lyle Adult Child [facility] Care Agent Care Teams Senior Electrical Engineer Relationship Specialty Start Date End Date David Maya DO [address] [facility] [place] [address] PCP - General Family Medicine 11/12/11 documented as of this encounter
--- OUTSIDE RECORDS SUMMARY | 2023-05-19 00:36 | External Medical Summary | Summary of Care ---
Author Name Unknown Organization [facility] Address [address] [place] [address] Phone [phone] Care Team Providers Care Boat Designer Name Role Phone Sherry Maya DO Primary Care Provider [phone] Reason for Visit * Reason Onset Date Comments Appointment 04/09/2023 Encounter Details Date Type Department Care Team (Late st Contact Info) Description 04/09/2023 Telephone [facility] [place] [address] [facility] [address] [place], [place] [id number] Services, Scheduling [address] [place] [address] Appointment (/) Allergies Active Allergy Reactions Criticality Noted Date Comments Benzonatate 12/08/2016 choking Keyanna Pedraza Other (Please comment) High 04/10/20 09 Choking documented as of this encounter (statuses as of 04/09/2023) Medications Medication Sig Dispensed Refills Start Date End Date Status [facility] MISCIndications:DM type 2, not at goal [...] Patient not taking.Reported on 04/09/2023 Glucose Blood (ONETOUCH VERIO) STRP USE TO [...] Acti ve Vitamin D (Ergocalciferol) 1.25 MG (10829 UT) Oral Capsule (Drisdol) take 1 capsule [...] and 1 Capsule before bedtime. 0 Active documented as of this encounter (statuses [...] Overview: Added automatically from request for surgery [id number] 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 [...] Silent myocardial infarction 03/23/2013 11/08/2018 Accelerate Clinical Trial*[id number] 01/24/2013 05/16/2015 Overview: ACCELERATE STUDY. Project # [id number], DIRECTOR OF ATHLETICS: Ben Hoover MD. CRC: DEBORAH Back. SUMMARY: To test the hypothesis that Evacetrapib 130 mg, in comparison to placebo, reduces the risk of major adverse coronary events in high-risk vascular disease patients. CONTACTS: During normal business hours, contact study staff at ; after hours Optical Laboratory Technician via the [facility] hospital manufacturing operator [phone]. 24-hour Global Study Helpline: [phone]. Lipid levels should not be ordered/obtained while this subject is in the Accelerate study. Lipids are being managed in a blinded fashion. If lipid levels are inadvertently obtained, it is important that test results are NOT provided to the patient, study doctor, child care coordinator, or other study team members. Restricted meds while in the study: 1) niacin > 250 mg, 2) gemfibrozil with a potent [id number]. NINA on CPAP 06/28/2012 01/31/2020 Overview: 06/28/12 [...] encounter Miscellaneous Notes * Telephone Encounter - Justine Bell OSA - 04/09/2023 11:32 AM EST Called pt to schedule a kaco return for 05/14 at 1:30, pt agreeable. documented in this encounter Plan of Treatment Upcoming Encounters Date Type Department Care Team (Late st Contact Info) Description 04/13/2023 9:00 AM EST Laboratory Lab Mobile Phlebotomy [facility] [address] [place] [address] [facility] Mobile Home Draw [address] [place] [address] 04/14/2023 6:00 AM EST Anticoagulation Pharmacy Call Center [address] [place] [address] [facility] [address] [place] [address] 04/15/2023 1:30 PM EST Office Visit Cardiology, [facility] [address] [place] [address] Imer Maya, [address] [place] [address] 05/14/2023 1:30 PM EST [facility] [place], [address] [address] Carolee Manriquez PA-C [address] [place] [address] Edna Baum, Community Health Director Surgical [address] [place] [address] Scheduled Procedures Name Priority Associated Diagnoses Date/Ti me COLONOSCOPY FLEXIBLE PROXIMAL DIAGNOSTIC Recall History of colon polyps Health Maintenance Due Date Last Done Comments Depression Screening 08/16/2022 08/16/2021 Diabetic Foot Exam 08/16/2022 08/16/2021, 0 05/02/2020, 11/08/2018, Additional history exists CKD PHOS USE SMARTSET 26130 11/06/202210/25, 09/12/2020, 07/12/2020, Additional history exists COVID-19 [...] Additional history exists CKD HGB USE SMARTSET 98494 12/25/202312/24, 08/15/2022, 03/26/2022, Additional history exists DTaP,Tdap,and [...] the patient have Health Care Power of Public Information Officer? No Full Code 12/05/2019 3:06 PM 12/05/2019 [...] the patient have Health Care Power of Public Information Officer? Yes, not currently available Full Code 06/08/2019 4:36 AM 06/14/2019 4:10 PM This order reflects the patients wishes and were consensually agreed upon. Question Answer Comments Discussion of Advance Directives occurred with: Not Discussed Does the patient have a Living Will? No Does the patient have Health Care Power of Public Information Officer? No Healthcare Agents on File Name Relationship Healthcare Agent Relationshi p Communication Maurydarcyelijah Lyle Adult Child [facility] re Agent Xi Lyle Adult Child Health Care Agent Care Teams Boat Designer Relationship Specialty Start Date End Date Sherry Maya DO [address] [place] [address] PCP - General Family Medicine 11/12/11 documented as of this encounter
--- OUTSIDE RECORDS SUMMARY | 2023-05-19 00:36 | External Medical Summary | Summary of Care ---
Author Name Unknown Organization [facility] Address [address] [place] [address] Phone [phone] Care Team Providers Care Casino Floor Person Name Role Phone Sherry Maya DO Primary Care Provider [phone] Reason for Visit * Reason Onset Date Comments Appointment 04/07/2023 Encounter Details Date Type Department Care Team (Late st Contact Info) Description 04/07/2023 Telephone [facility] [place] [address] [facility] [place] [id number] Services, Scheduling [address] [place] [address] Appointment (//) Allergies Active Allergy Reactions Criticality Noted Date Comments Benzonatate 12/08/2016 choking Keyanna Pedraza Other (Please comment) High 04/10/20 09 Choking documented as of this encounter (statuses as of 04/07/2023) Medications Medication Sig Dispensed Refills Start Date [...] Cap 5 03/16/2017 Active Additional Information Patient taking differently:400 mg Oral Daily(AM),Taking over the counter 500 mg daily, Reported on 08/15/2022 Glucose Blood (G2B PharmaTOUCH VERIO) STRP USE TO TEST BLOOD GLUCOSE [...] with diabetes mellitus due to underlying condition ([facility]),Ulcer of right foot with necrosis [...] nostril daily.. 9.9 mL 10 08/05/2021 Active Triamcinolone Acetonide 0.1 % External Lotion (Aristocort)Indication s:Other eczema Apply topically to affected area 2 times a day . To affected area. 60 mL 5 12/17/2021 Active Additional Information Patient not taking.Reported on 12/24/2022 Empagliflozin 25 MG Oral Tablet (Jardiance) Take 1 Tablet by mouth in the morning. 0 Active Atorvastatin Calcium 80 MG Oral Tablet (Lipitor)Indications:D yslipidemia, goal LDL below 100 Take 1 Tablet by mouth in the morning. 100 Tablet 3 05/02/2022 Active Potassium Chloride Tiffanie ER 10 MEQ Oral Tablet Extended ReleaseIndications:Isc hemic cardiomyopathy Take 2 Tablets by mouth in the morning. 200 Tablet 3 05/14/2022 Active Mupirocin 2 % External Ointment (Bactroban) 0 03/23/2022 Acti ve Vitamin D (Ergocalciferol) 1.25 MG (76410 UT) Oral Capsule (Drisdol) take 1 capsule [...] OTHER MEDS 100 Tablet 5 01/08/2023 Active HYDROcodone-Acetaminop hen 10-325 MG Oral TabletIndications:S/P BKA [...] as of this encounter (statuses as of 04/07/2023) Active Problems Problem Noted Date Diagnosed Date Other persistent atrial fibrillation 12/24/2022 Body mass index (BMI) of 50.0 to 59.9 in adult 0 12/02/2021 Overview: Per Obesity protocol - Per Obesity protocol - Per Obesity Taxonomy ICD-10 update of inactive term Food insecurity 09/02/2021 Overview: Per [facility] Protocol Major depressive disorder, recurrent, mild 07/29 Type [...] Overview: Added automatically from request for surgery [id number] 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 [...] as of this encounter (statuses as of 04/07/2023) Resolved Problems Problem Noted Date Diagnosed Date Resolved Date Acute hypoxemic respiratory failure 07/29/2021 07/29/2021 Acute [...] virus 07/29/2021 07/29/2021 SARS-CoV-2 positive 07/29/2021 07/30/19 22 Cellulitis 07/29/2021 07/29/2021 Volume overload 07/29/2021 07/29/2021 [...] Silent myocardial infarction 03/23/2013 11/08/2018 Accelerate Clinical Trial*[id number] 01/24/2013 05/16/2015 Overview: ACCELERATE STUDY. Project # [id number], FINANCE ADVISOR: Ben Hoover MD. CRC: DEBORAH Back. SUMMARY: To test the hypothesis that Evacetrapib 130 mg, in comparison to placebo, reduces the risk of major adverse coronary events in high-risk vascular disease patients. CONTACTS: During normal business hours, contact study staff at ; after hours Newspaper Photo Editor via the [facility] hospital hat forming machine operator [phone]. 24-hour Global Study Helpline: [phone]. Lipid levels should not be ordered/obtained while this subject is in the Accelerate study. Lipids are being managed in a blinded fashion. If lipid levels are inadvertently obtained, it is important that test results are NOT provided to the patient, study doctor, web content coordinator, or other study team members. Restricted meds while in the study: 1) niacin > 250 mg, 2) gemfibrozil with a potent [id number]. NINA on CPAP 06/28/2012 01/31/2020 Overview: 06/28/12 [...] as of this encounter (statuses as of 04/07/2023) Immunizations Name Administration Dates Next Due COVID-19 [...] you got the money to buy more. Never true 07/16/19 23 Within the past 12 months, t he food you bought just didn't last and you didn't have money to get more. Never true 07/15/2022 Sex and Gender Information Value Date Recorded [...] Telephone Encounter - Konrad Padron OSA - 04/07/2023 11:46 AM EST Teams msg request to set pt up with acute [facility], [facility] already scheduled for this week, combined appts into one, 8am 04/09, [facility] scheduled from 8-9am, [facility] scheduled from 9-10am, [facility] scheduled from 10-11am to finish paperwork and travel time, pt agreeable with same documented in this encounter Plan of Treatment Upcoming Encounters Date Type Department Care Team (Late st Contact Info) Description 04/09/2023 8:00 AM EST [facility] [place], [place] [address] [place] [address] Carolee Manriquez PA-C [address] [place] [address] Edna Baum, Community Health Manager Proposal [address] [place] [address] 04/13/2023 9:00 AM EST Laboratory Lab Mobile Phlebotomy [facility] [address] [place] [address] [facility], [facility] Mobile Home Draw [address] [place] [address] 04/14/2023 6:00 AM EST Anticoagulation Pharmacy Call Center [address] [place] [address] [facility] [address] 60 [facility] [place] [address] 04/15/2023 1:30 PM EST Office Visit Cardiology, [facility] [address] [place] [address] Imer Maya, DO [address] [place] [address] Scheduled Procedures Name Priority Associated Diagnoses Date/Ti me COLONOSCOPY FLEXIBLE PROXIMAL DIAGNOSTIC Recall History of colon polyps Health Maintenance Due Date Last Done Comments Depression Screening 08/16/2022 08/16/2021 Diabetic Foot Exam 08/16/2022 08/16/2021, 0 05/02/2020, 11/08/2018, Additional history exists CKD PHOS USE SMARTSET 16476 11/06/202210/25, 09/12/2020, 07/12/2020, Additional history exists COVID-19 [...] Additional history exists CKD HGB USE SMARTSET 99641 12/25/202312/24, 08/15/2022, 03/26/2022, Additional history exists DTaP,Tdap,and [...] the patient have Health Care Power of Solar Field Installation Crew Member? No Full Code 12/05/2019 3:06 PM 12/05/2019 [...] the patient have Health Care Power of Solar Field Installation Crew Member? Yes, not currently available Full Code 06/08/2019 4:36 AM 06/14/2019 4:10 PM This order reflects the patients wishes and were consensually agreed upon. Question Answer Comments Discussion of Advance Directives occurred with: Not Discussed Does the patient have a Living Will? No Does the patient have Health Care Power of Solar Field Installation Crew Member? No Healthcare Agents on File Name Relationship Healthcare Agent Relationshi p Communication Omar Lyle Adult Child [facility] re Agent Xi Lyle Adult Child [facility] Care Agent Care Teams Casino Floor Person Relationship Specialty Start Date End Date Sherry Maya DO [address] [place] [address] PCP - General Family Medicine 11/12/11 documented as of this encounter
--- OUTSIDE RECORDS SUMMARY | 2023-05-19 00:37 | External Medical Summary | Summary of Care ---
Author Name Unknown Organization [facility] Address [address] [facility] [address] Phone [phone] Care Team Providers Care Spikemaking Supervisor Name Role Phone Sherry Maya DO Primary Care Provider [phone] Reason for Visit * Reason Comments Cardiac Rehab Encounter Details Date Type Department Care Team (Late st Contact Info) Description 03/25/2023 8:00 AM EST Telemedicine Cardiac Rehab Advanced, Virtual [address] [place] [address] [place] [address] Advanced, Virtual Cardiac Rehab [address] [place] [address] [place] [address] Heart failure, unspecified HF chronicity, unspecified heart failure type (HCC)* Allergies Active Allergy Reactions Criticality Noted Date Comments Benzonatate 12/08/2016 choking Keyanna Pedraza Other (Please comment) High 04/10/20 09 Choking documented as of this encounter (statuses as of 03/31/2023) Medications Medication Sig Dispensed Refills Start Date [...] mg daily, Reported on 08/15/2022 Glucose Blood (myTipsUCH VERIO) STRP USE TO TEST BLOOD GLUCOSE 8 TIMES A DAY 800 Strip 3 03/18/2019 Active Insulin Aspart 100 UNIT/ML Injection Solution Inject under the skin. FOR USE IN PUMP 0 Active FrogmetricsTouch Verio Flex System w/Device Kit Use as [...] Acti ve Vitamin D (Ergocalciferol) 1.25 MG (80245 UT) Oral Capsule (Drisdol) take 1 capsule [...] needed for Pain, Severe. 60 Tablet 0 03/13/2023 Active traMADol HCl 50 MG Oral Tablet (Ultram)Indications:S/ P BKA (below knee amputation) unilateral, left (HCC) Take 1 Tablet by mouth every 6 hours as needed for Pain, Moderate. 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 Project # [id number], FLY FISHING GUIDE: Ben Hoover MD. CRC: DEBORAH Back. SUMMARY: To test the hypothesis that Evacetrapib 130 mg, in comparison to placebo, reduces the risk of major adverse coronary events in high-risk vascular disease patients. CONTACTS: During normal business hours, contact study staff at ; after hours Watch Assembly Instructor via the [facility] hospital coremaking machine operator [phone]. 24-hour Global Study Helpline: [phone]. Lipid levels should not be ordered/obtained while this subject is in the Accelerate study. Lipids are being managed in a blinded fashion. If lipid levels are inadvertently obtained, it is important that test results are NOT provided to the patient, study doctor, ur coordinator, or other study team members. Restricted meds while in the study: 1) niacin > 250 mg, 2) gemfibrozil with a potent [id number]. NINA on CPAP 06/28/2012 01/31/2020 Overview: 06/28/12 [...] as of this encounter (statuses as of 03/31/2023) Immunizations Name Administration Dates Next Due COVID-19 mRNA, LNP-s, No Pre serve, 2-Dose Series (Moderna) 10/04/2020,09/06/2020 COVID-19, mRNA, LNP-s, PF, B ooster, 100mcg/0.5mg (Moderna) 05/15/2021 Hepatitis B, 20+ yrs 11/16/2017,07/14/2017,05/1406/14/2017 Pneumococcal Conjugate Vacc, 13 Valent (Prevnar) 01/04/2017 Pneumococcal Polysaccharide PPV23 (Pneumovax) 09/08/2006 SEASONAL INFLUENZA, PF, 6 M & Above, IM , (FLULAVAL or FLUZONE) 01/23/2023,02/12/2022,04/05/2021,09/0 04/2019,01/26/2019 Seasonal Influenza, Quadriva lent, No [...] Progress Notes * Joaquina Anthony EPC - 03/31/2023 8:54 PM EST Session Encounter: Patient is participating in [facility] Int[facility] in partnership with [employer] is a specialized company that specializes in providing virtual cardiac rehab services. Session #49 completed. Please refer to scan document for session details. Session type: Exercise Individual Session duration: 35 minutes documented in this encounter Plan of Treatment Upcoming Encounters Date Type Department Care Team (Late st Contact Info) Description 04/13/2023 9:00 AM EST Laboratory Lab Mobile Phlebotomy [facility] [address] [place] [address] [facility], [facility] Mobile Home Draw [address] [place] [address] 04/14/2023 6:00 AM EST Anticoagulation Pharmacy Call Center [address] [facility] [place] [address] [facility] 58 60 [facility] [place] [address] 04/15/2023 1:30 PM EST Office Visit Cardiology, [facility] [address] [place] [address] Imer aMya, [address] [place] [address] Scheduled Procedures Name Priority Associated Diagnoses Date/Ti me COLONOSCOPY FLEXIBLE PROXIMAL DIAGNOSTIC Recall History of colon polyps Health Maintenance Due Date Last Done Comments Depression Screening 08/16/2022 08/16/2021 Diabetic Foot Exam 08/16/2022 08/16/2021, 0 05/02/2020, 11/08/2018, Additional history exists CKD PHOS USE SMARTSET 05150 11/06/202210/25, 09/12/2020, 07/12/2020, Additional history exists COVID-19 [...] Additional history exists CKD HGB USE SMARTSET 50550 12/25/202312/24, 08/15/2022, 03/26/2022, Additional history exists DTaP,Tdap,and [...] the patient have Health Care Power of Transportation Aide? No Full Code 12/05/2019 3:06 PM 12/05/2019 [...] the patient have Health Care Power of Transportation Aide? Yes, not currently available Full Code 06/08/2019 4:36 AM 06/14/2019 4:10 PM This order reflects the patients wishes and were consensually agreed upon. Question Answer Comments Discussion of Advance Directives occurred with: Not Discussed Does the patient have a Living Will? No Does the patient have Health Care Power of Transportation Aide? No Healthcare Agents on File Name Relationship Healthcare Agent Relationshi p Communication Omar Valdo Adult Child [facility] re Agent Xi Lyle Adult Child Health Care Agent Care Teams Spikemaking Supervisor Relationship Specialty Start Date End Date Sherry Maya DO [address] [place] [address] PCP - General Family Medicine 11/12/11 documented as of this encounter
--- OUTSIDE RECORDS SUMMARY | 2023-05-19 00:37 | External Medical Summary | Summary of Care ---
Author Name Unknown Organization [facility] Address [address] [facility] [place] [address] Phone [phone] Care Team Providers Care Critical Care Nurse Name Role Phone David Maya DO Primary Care Provider [phone] Reason for Visit * Reason Onset Date Comments Medication Refill 03/30/2023 Encounter Details Date Type Department Care Team (Late st Contact Info) Description 03/30/2023 Refill [place] [address] [place] [address] David Maya DO [address] [place] [address] S/P BKA (below knee amputation) unilateral, left (HCC) Allergies Active Allergy Reactions Criticality Noted Date Comments Benzonatate 12/08/2016 choking Keyanna Pedraza Other (Please comment) High 04/10/20 09 Choking documented as of this encounter (statuses as of 04/01/2023) Medications Medication Sig Dispensed Refills Start Date End Date Status ONEALEXISUCH CHRIS MISCIndications:DM type 2, not at goal [...] Cap 5 7 Active Additional Information Patient taking differently:400 mg Oral Daily(AM),Taking over the counter 500 mg daily, Reported on 08/15/2022 Glucose Blood (TalentologyTOUCH VERIO) STRP USE TO TEST BLOOD GLUCOSE [...] nostril daily.. 9.9 mL 10 2 Active Triamcinolone Acetonide 0.1 % External Lotion (Aristocort)Indication s:Other eczema Apply topically to affected area 2 times a day . To affected area. 60 mL 5 2 Active Additional Information Patient not taking.Reported on 12/24/2022 Empagliflozin 25 MG Oral Tablet (Jardiance) Take 1 Tablet by mouth in the morning. 0 Active Atorvastatin Calcium 80 MG Oral Tablet (Lipitor)Indications:D yslipidemia, goal LDL below 100 Take 1 Tablet by mouth in the morning. 100 Tablet 3 3 Active Potassium Chloride Tiffanie ER 10 MEQ Oral Tablet Extended ReleaseIndications:Isc hemic cardiomyopathy Take 2 Tablets by mouth in the morning. 200 Tablet 3 3 Active Mupirocin 2 % External Ointment (Bactroban) 0 2 Active Vitamin D (Ergocalciferol) 1.25 MG (10432 UT) Oral Capsule (Drisdol) take 1 capsule [...] OTHER MEDS 100 Tablet 5 3 Active HYDROcodone-Acetaminop hen 10-325 MG Oral TabletIndications:S/P [...] for Pain, Severe. 60 Tablet 0 3 03/30/20 23 Discontinu ed(Refill) documented as of this encounter (statuses as of 04/01/2023) Active Problems Problem Noted Date Diagnosed Date [...] Overview: Added automatically from request for surgery [id number] 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 [...] as of this encounter (statuses as of 04/01/2023) Resolved Problems Problem Noted Date Diagnosed Date [...] Silent myocardial infarction 03/23/2013 11/08/2018 Accelerate Clinical Trial*[id number] 01/24/2013 05/16/2015 Overview: ACCELERATE STUDY. Project # [id number], MESSAGING ARCHITECT: Ben Hoover MD. CRC: DEBORAH Back. SUMMARY: To test the hypothesis that Evacetrapib 130 mg, in comparison to placebo, reduces the risk of major adverse coronary events in high-risk vascular disease patients. CONTACTS: During normal business hours, contact study staff at ; after hours Program Engagement Director via the [facility] hospital automatic grinder operator [phone]. 24-hour Global Study Helpline: [phone]. Lipid levels should not be ordered/obtained while this subject is in the Accelerate study. Lipids are being managed in a blinded fashion. If lipid levels are inadvertently obtained, it is important that test results are NOT provided to the patient, study doctor, sales training coordinator, or other study team members. Restricted meds while in the study: 1) niacin > 250 mg, 2) gemfibrozil with a potent [id number]. NINA on CPAP 06/28/2012 01/31/2020 Overview: 06/28/12 [...] as of this encounter (statuses as of 04/01/2023) Immunizations Name Administration Dates Next Due COVID-19 [...] Telephone Encounter - David Maya DO - 04/01/2023 8:20 AM ESTSigned Prescriptions: Disp Refills HYDROcodone-Acetaminophen 5-325 MG Oral Ta*60 Tab*0 Sig: Take 1 Tablet by mouth every 6 hours as needed for Pain, Severe. Authorizing Provider: DAVID MAYA * Telephone Encounter - Carlos Moran RPh - 03/30/2023 4:27 PM ESTPending Prescriptions: Disp Refills HYDROcodone-Acetaminophen 5-325 MG Oral Ta*60 Tab*0 Sig: Take 1 Tablet by mouth every 6 hours as needed for Pain, Severe. * Telephone Encounter - Carlos Moran [facility] - 03/30/2023 4:27 PM EST I have reviewed the patients controlled substance dispensing history in the Prescription Drug Monitoring Program in compliance with the [facility] regulations before prescribing a controlled substance. PDMP checked on 03/30/2023. Pending Prescriptions: Disp Refills HYDROcodone-Acetaminophen 5-325 MG Oral T*60 Tab*0 Sig: Take 1 Tablet by mouth every 6 hours as needed for Pain, Severe. Last Visit: 01/23/2023 (in office), 06/03/2022 (telemedicine) Next Visit: 03/31/2023 Date medication was last filled: 03/03/2023 Date medication is due for refill: 03/27/2023 Pharmacy: [id number] [place] Is this request for a controlled substance? Yes and Urine Drug Screen Not completed Toxicology results: No results found. However, due to the size of the patient record, not all encounters were searched.Please check Results Review for a complete set of results. Please approve if appropriate. Thanks, Carlos Moran Pharm.D. Clinical Pharmacist [facility] Pharm[facility] Services (CCPS)(Formerly Telepharmacy) [phone] 03/30/2023, 4:27 PM documented in this encounter Plan of Treatment Upcoming Encounters Date Type Department Care Team (Late st Contact Info) Description 04/13/2023 9:00 AM EST Laboratory Lab Mobile Phlebotomy [facility] [address] [place] [address] [facility], [facility] Mobile Home Draw [address] [place] [address] 04/14/2023 6:00 AM EST Anticoagulation Pharmacy Call Center [address] [place] [address] [facility], [facility] [address] [facility] [place] [address] 04/15/2023 1:30 PM EST Office Visit Cardiology, [facility] [address] [place] [address] Imer Maya DO [address] [place] [address] Scheduled Procedures Name Priority Associated Diagnoses Date/Ti me COLONOSCOPY FLEXIBLE PROXIMAL DIAGNOSTIC Recall History of colon polyps Health Maintenance Due Date Last Done Comments Depression Screening 08/16/2022 08/16/2021 Diabetic Foot Exam 08/16/2022 08/16/2021, 0 05/02/2020, 11/08/2018, Additional history exists CKD PHOS USE SMARTSET 60172 11/06/202210/25, 09/12/2020, 07/12/2020, Additional history exists COVID-19 [...] Additional history exists CKD HGB USE SMARTSET 29416 12/25/202312/24, 08/15/2022, 03/26/2022, Additional history exists DTaP,Tdap,and [...] the patient have Health Care Power of Developer Prover Mechanical? No Full Code 12/05/2019 3:06 PM 12/05/2019 [...] the patient have Health Care Power of Developer Prover Mechanical? Yes, not currently available Full Code 06/08/2019 4:36 AM 06/14/2019 4:10 PM This order reflects the patients wishes and were consensually agreed upon. Question Answer Comments Discussion of Advance Directives occurred with: Not Discussed Does the patient have a Living Will? No Does the patient have Health Care Power of Developer Prover Mechanical? No Healthcare Agents on File Name Relationship Healthcare Agent [facility] p Communication Omar Lyle Adult Child [facility] re Agent Santanabenita Valdo Adult Child Health Care Agent Care Teams Critical Care Nurse Relationship Specialty Start Date End Date David Maya DO [address] [place] [address] PCP - General Family Medicine 11/12/11 documented as of this encounter
--- OUTSIDE RECORDS SUMMARY | 2023-05-19 00:37 | External Medical Summary ---
Author Name Unknown Address Unknown Organization K01:[facility] [place] [address] [place] [address] Laboratory Report Ordering Provider Test Date Status ALIE ROPER 03/27/2023 08:04:00 Final Standing order for pt/inr. < br/>Please draw pt/inr every 1 to 4 weeks as requested
Results to [facility]

Warfarin Therapy
INR: 2.0-3.0 conventional anticoagulation
INR: 2.5-3.5 high intensity anticoagulation Observation Date Value Abnormality Reference (Units ) Status PT 03/27/2023 08:04:00 18.2 Above high normal 11 .6-15.2 (seconds) Final INR 03/27/2023 08:04:00 1.5 Above high normal 0. 8-1.2 Final Performing Location [facility] - [address] [place] [address]
--- OUTSIDE RECORDS SUMMARY | 2023-05-19 00:37 | External Medical Summary ---
Author Name Unknown Address Unknown Organization K01:[facility] [place] [address] [place] [address] Laboratory Report Ordering Provider Test Date Status SHI SALINAS 03/27/2023 08:04:00 Final Observation Date Value Abnormality Reference (Units ) Status BUN 03/27/2023 08:04:00 25 Above high normal 6-20 (mg/dL) Final Creatinine 03/27/2023 08:04:00 1.2 0.6-1.2 (mg/dL) Final Glomerular filtration rate/1.73 sq M.predicted [Volume Rate/Area] in Serum, Plasma or Blood by Creatinine-based formula (CKD-EPI) 03/27/2023 08:04:00 73 >=60 (mL/min) Final eGFR is calculated based on the CKD-EPI 2020 equation SODIUM 03/27/2023 08:04:00 133 Below low normal 135 -146 (mmol/L) Final Potassium 03/27/2023 08:04:00 5.6 Above high normal 3. 5-5.1 (mmol/L) Final Cl 03/27/2023 08:04:00 97 Below low normal 98- 107 (mmol/L) Final CO2 03/27/2023 08:04:00 21 Below low normal 22- 32 (mmol/L) Final Anion gap 03/27/2023 08:04:00 15 7-15 (mmol /L) Final Glucose 03/27/2023 08:04:00 301 Above high normal 70 -120 (mg/dL) Final Calcium 03/27/2023 08:04:00 8.5 8.4-10.2 ( mg/dL) Final Performing Location [facility] [place] [address] [place] [address]
--- OUTSIDE RECORDS SUMMARY | 2023-05-19 00:37 | External Medical Summary | Summary of Care ---
Author Name Unknown Organization [facility] Address [address] [facility] [place] [address] Phone [phone] Care Team Providers Care Director Of Online Education Name Role Phone Sherry Maya DO Primary Care Provider + [phone] Reason for Visit * Reason Comments Dosage Adjustment Via Phone (anticoag Cl inic) Encounter Details Date Type Department Care Team (Latest Contact Info) Description 03/30/2023 6:00 AM EST Anticoagulation Pharmacy Call Center [phone] [place] [address] [facility] [address] [place] [address] Acute deep vein thrombosis (DVT) of proximal vein of left lower extremity (HCC)* Allergies Active Allergy Reactions Criticality Noted Date Comments Benzonatate 12/08/2016 choking Keyanna Pedraza Other (Please comment) High 04/10/20 09 Choking documented as of this encounter (statuses as of 03/30/2023) Medications Medication Sig Dispensed Refills Start Date End Date Status ONEMALATHI PEREZ MISCIndications:DM type 2, not at goal ([facility]) 3 Box Dosing Unit 1 04/17/2015 [...] mg daily, Reported on 08/15/2022 Glucose Blood (ClinTec InternationalTOUCH VERIO) STRP USE TO TEST BLOOD GLUCOSE 8 TIMES A DAY 800 Strip 3 03/18/2019 Active Insulin Aspart 100 UNIT/ML Injection Solution Inject under the skin. 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 Project # [id number], DRILL PRESS SET UP OPERATOR: Ben Hoover MD. CRC: DEBORAH Back. SUMMARY: To test the hypothesis that Evacetrapib 130 mg, in comparison to placebo, reduces the risk of major adverse coronary events in high-risk vascular disease patients. CONTACTS: During normal business hours, contact study staff at ; after hours Senior Environmental Practice Leader via the [facility] hospital dumpling machine operator [phone]. 24-hour Global Study Helpline: [phone]. Lipid levels should not be ordered/obtained while this subject is in the Accelerate study. Lipids are being managed in a blinded fashion. If lipid levels are inadvertently obtained, it is important that test results are NOT provided to the patient, study doctor, promotions coordinator, or other study team members. Restricted meds while in the study: 1) niacin > 250 mg, 2) gemfibrozil with a potent [id number]. NINA on CPAP 06/28/2012 01/31/2020 Overview: 06/28/12 [...] as of this encounter (statuses as of 03/30/2023) Immunizations Name Administration Dates Next Due COVID-19 [...] as of this encounter Progress Notes * Fabienne Beckwith woodworking shop hand - 03/30/2023 9:41 AM EST Contacts Type Contact Phone/Fax 03/30/2023 09:38 AM EST Phone (Outgoing) Ben Lyle (Self) [phone] (M) Left Message Subjective Advised patient to contact Anticoagulation Clinic if any unusual bruising or bleeding, recent illness, changes in medication, or questions/concerns. PT/INR results, Coumadin dose instructions, and next PT/INR date communicated as noted by Pharmacist: Yes IGGY NEW 03/30/2023, 9:41 AM * Mychal Lomeli RPh - 03/30/2023 8:16 AM EST Images from the original note were not included. Coumadin Clinic (region specific) Objective Current Warfarin Dose As of 03/30/2023 Warfarin maintenance plan: 4 mg (2 mg x 2) every day INR Result As of 03/30/2023 INR goal: 2.0-3.0 INR used for dosin.5 (03/27/2023) Assessment & Plan Warfarin Plan As of 03/30/2023 Full warfarin instructions: 03/30: 8 mg; Otherwise 4 mg every day Next INR check: 04/13/2023 Repeat PT/INR in 2 week(s) Weekly dose: not changed Additional Dosing Information: Description GML MTuTh- AMIO (patient has 5mg and 1mg tabs) Tech to contact patient with dose instructions as noted. Mychal Lomeli RPh 03/30/2023, 8:17 AM documented in this encounter Plan of Treatment Upcoming Encounters Date Type Department Care Team (Late st Contact Info) Description 04/14/2023 6:00 AM EST Anticoagulation Pharmacy Call Center [phone] [place] [address] [facility], [facility] [address] [facility] [place] [address] 04/15/2023 1:30 PM EST Office Visit Cardiology, [facility] [address] [place] [address] Imer Maya DO [address] [place] [address] Scheduled Procedures Name Priority Associated Diagnoses Date/Ti me COLONOSCOPY FLEXIBLE PROXIMAL DIAGNOSTIC Recall History of colon polyps Health Maintenance Due Date Last Done Comments Depression Screening 08/16/2022 08/16/2021 Diabetic Foot Exam 08/16/2022 08/16/2021, 0 05/02/2020, 11/08/2018, Additional history exists CKD PHOS USE SMARTSET 70787 11/06/202210/25, 09/12/2020, 07/12/2020, Additional history exists COVID-19 [...] Additional history exists CKD HGB USE SMARTSET 22507 12/25/202312/24, 08/15/2022, 03/26/2022, Additional history exists DTaP,Tdap,and [...] as of this encounter Visit Diagnoses Diagnosis Acute deep vein thrombosis (DVT) of proximal vein [...] the patient have Health Care Power of Film Spooler? No Full Code 12/05/2019 3:06 PM 12/05/2019 [...] the patient have Health Care Power of Film Spooler? Yes, not currently available Full Code 06/08/2019 4:36 AM 06/14/2019 4:10 PM This order reflects the patients wishes and were consensually agreed upon. Question Answer Comments Discussion of Advance Directives occurred with: Not Discussed Does the patient have a Living Will? No Does the patient have Health Care Power of Film Spooler? No Healthcare Agents on File Name Relationship [facility] Omar Mckeont Adult Child [facility] re Agent [facility] Care Agent Care Teams Director Of Online Education Relationship Specialty Start Date End Date Sherry Maya DO [address] [place] [address] PCP - General Family Medicine 11/12/11 documented as of this encounter
--- OUTSIDE RECORDS SUMMARY | 2023-05-19 00:37 | External Medical Summary ---
Author Name Unknown Address Unknown Organization K01:[facility] [place] [address] [place] [address] Laboratory Report Ordering Provider Test Date Status SHI SALNIAS 03/27/2023 08:04:00 Final Observation Date Value Abnormality Reference (Units ) Status HbA1C 03/27/2023 08:04:00 8.6 Above high normal 4. 0-5.6 (%) Final The use of HbA1c to monitor glycemic status is based on normal hemoglobin and HbA composition. This test should not be used in patients with abnormal hemoglobin that affects the half life of the red blood cell or the in vivo glycation rates. Glucose, estimated average 03/27/2023 08:04:00 200 Above high normal <126 (mg/dL) Murali anton Performing Location [facility] [place] [address] [place] [address]
[2023-05-19] MEDS: BETAMETHASONE VAL 0.1% CR 15 GM TOP SCH (01:19)
[2023-05-19 04:18] LABS: Basophils # (auto) 0.06 K/uL (0.00-0.20); Eosinophils # (auto) 0.17 K/uL (0.00-0.50); Eosinophils % (auto) 2.9 %; Hematocrit (blood only) 36.7 % (42.0-52.0); Hemoglobin 11.9 g/dl (14.0-18.0); Immature Granulocytes # (auto) 0.03 K/uL (0.01-0.20); Immature Granulocytes % (auto) 0.5 %; Lymphocytes # (auto) 0.59 K/uL (1.20-3.40); Lymphocytes % (auto) 10.1 %; Mean Corpuscular Hemoglobin 29.7 pg (25.0-34.0); Mean Corpuscular Hgb Conc 32.4 g/dL (32.0-36.0); Mean Corpuscular Volume 91.5 fL (80.0-100.0); Mean Platelet Volume 9.1 fL (9.4-12.4); Monocytes # (auto) 0.64 K/uL (0.11-0.59); Neutrophils # (auto) 4.34 K/uL (1.40-6.50); Neutrophils % (auto) 74.5 %; Platelet Count 298 K/uL (130-400); RDW Coefficient of Variation 16.3 % (11.5-14.5); RDW Standard Deviation 55.1 fL (36.4-46.3); Red Blood Count 4.01 M/uL (4.70-6.10); White Blood Count 5.83 K/ul (4.8-10.8)
[2023-05-19 04:29] LABS: Calcium 8.7 mg/dl (8.6-10.3); Creatinine Clr Calc Pharmacy 122.5 ml/min; Est GFR (African American) 79.4 ml/min; Est GFR (Non-African American) 68.5 ml/min; Magnesium 2.1 mg/dl (1.7-2.4); Phosphorus 3.8 mg/dl (2.5-4.9); Potassium 4.1 mmol/L (3.5-5.1)
[2023-05-19 04:48] LABS: INR 2.9 (0.9-1.1); Prothrombin Time 29.5 Seconds (9.0-12.0)
[2023-05-19] MEDS: traMADol HCL 50 MG TABLET PO PRN (07:05)
[2023-05-19] MEDS: oxyCODONE/ACETAMINOPHEN 5mg/325mg TAB PO PRN (07:44)
[2023-05-19] MEDS: FLUTICASONE/VILANTEROL 200/25MCG 14 PUFFS/INHALER INH SCH (08:21)
[2023-05-19] MEDS: MAGNESIUM OXIDE 400 MG TAB PO SCH (08:24)
[2023-05-19] MEDS: SPIRONOLACTONE 25 MG TAB PO SCH (08:25)
[2023-05-19] MEDS: LEVOTHYROXINE SODIUM 88 MCG TABLET PO SCH (08:25)
[2023-05-19] MEDS: POTASSIUM CHLORIDE CRTAB 20 MEQ TABCR PO SCH (08:25)
[2023-05-19] MEDS: PANTOprazole 40 MG TAB PO SCH (08:26)
[2023-05-19] MEDS: ASPIRIN 81 MG ECTAB PO SCH (08:26)
[2023-05-19] MEDS: EMPAGLIFLOZIN 25 MG TAB PO SCH (08:27)
[2023-05-19] MEDS: LORATADINE 10 MG TAB PO SCH (08:27)
[2023-05-19] MEDS ORDERED: PHARMACY GLYCEMIC MGMT CONSULT PRN (11:33)
[2023-05-19] MEDS: PIPERACILLIN/TAZOBACTAM 4.5 GM/100ML D5W IV ONE (11:38)
[2023-05-19] MEDS ORDERED: LANTUS PER UNIT CHARGE SC ONE (12:15)
--- NOTE | 2023-05-19 12:20 | Pharmacy Report ---
Pharmacy Glycemic Short Note 2 - Date of Service May 19, 2023 - Glycemic Short BSG Results (Last 24 hours): 05/18/23 05/19/23 16:15 03:39 Glucose 104 H 95 OUTPATIENT ANTIDIABETIC REGIMEN: * t:slim insulin pump. Settings reviewed from March 19 2023 Endocrinology Note; Empagliflozin 25 mg * A1c pending, 8.9% in November of 2022 ASSESSMENT: * Mr. Lyle is admitted with right leg wound, patient was to continue home insulin pump while inpatient. Discussed with RN this is reportedly disconnected and he has not been using it, ? when he disconnected. BSGs on lab yesterday 104 mg/dl, Fasting 95 mg/dL this morning. BSG reported to be ~140 at time of consult. To obtain new BSG. * 155 units/day of basal per most recent Endo note. Patient typically requires less while in hospital. Given uncertain amount of time since pump disconnected and normal BSGs will start conservatively with basal/bolus insulin. * Adjusted weight based stress of 2 carb ratio + home correction factor. Will give 25 units x 1 of lantus with additional later today should BSGs trend upward PLAN FOR INPATIENT GLYCEMIC CONTROL: * Hold outpatient oral diabetes medications * Basal insulin * Lantus 25 units x 1 now; reassess this PM * Bolus insulin * NovoLog per scale ACHS or Q6hrs while NPO * Goal Range: Low 110 mg/dL - High 140 mg/dL * Correction Factor: 30 mg/dL/unit * Nutritional / Prandial insulin per carb ratio of 1 unit per 6 grams CHO consumed
[2023-05-19] MEDS: INSULIN ASPART PER UNIT CHARGE SC SCH (12:51)
[2023-05-19] MEDS: LANTUS PER UNIT CHARGE SC ONE ×2 (12:53→21:02)
[2023-05-19] MEDS: HYDROcodone/ACETAMINOPHEN 10/325 TAB PO PRN (14:28)
[2023-05-19] MEDS: WARFARIN SOD 4 MG TAB PO SCH (16:52)
[2023-05-19] MEDS: FUROSEMIDE 40 MG/4 ML VIAL IV SCH (16:53)
--- NOTE | 2023-05-19 17:21 | Hospitalist Progress Note ---
Date of Service May 19, 2023 Assessment & Plan (1) Leg wound, right: Plan: Chronic leg wounds with history of osteomyelitis Complaining of more pain and swelling of the right leg with some drainage from the right shoulder wounds X-ray did not show any osteomyelitis and the patient remains afebrile without any elevation of the white count but CRP is elevated at 8.64 Cultures were taken and he was started with intravenous Zosyn Recently finished a course of antibiotic with doxycycline Will check MRSA screen before putting any staph coverage Will get podiatry consult-awaiting input and recommendation Right foot wound culture is growing gram-positive bacilli Blood cultures remain negative so far Will continue intravenous Zofran for now and await full sensitivity and identification of the organism If the blood cultures are positive will need ID evaluation (2) Cellulitis of right leg: Plan: As above (3) 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: Plan: Has been on subcu continuous infusion of insulin Will put him on sliding scale coverage and consult glycemic pharmacist Has been on insulin pump which ran out this morning Will get glycemic pharmacist consult (4) Morbid obesity: (5) CKD (chronic kidney disease) stage 3, GFR 30-59 ml/min: Plan: History of chronic kidney disease stage III Creatinine today remains normal at 1.13 (6) NINA on CPAP: Plan: Continue with the CPAP and/or BiPAP as at home (7) Ischemic cardiomyopathy: Plan: History of ischemic cardiomyopathy status post AICD placement No acute issue with the heart at this time and denies any cardiac symptoms (8) Cardiac defibrillator in situ: (9) Hypertension: (10) Atrial fibrillation: Plan: Has atrial fibrillation and the rate is controlled Will continue the current medications (11) Chronic diastolic heart failure: Plan: Has been on metolazone and oral torsemide Will continue with metolazone and add intravenous furosemide 40 mg twice daily for now Monitor electrolytes Has bilateral leg swelling more of the left leg than the right Lasix will be increased to 80 mg IV twice daily Monitor electrolytes (12) History of amputation of left foot: Plan: Complains to have swelling of the stamp on the right side Continue with intravenous Lasix for now (13) Adjustment disorder with mixed disturbance of emotions and conduct: Plan: Continue antidepressant DVT prophylaxis Has been on Coumadin Therapeutic INR-INR remains therapeutic at 2.9 CODE STATUS Full code Admission and Anticipated Discharge Date Admission Date: May 18, 2023 Subjective 05/19/2023 The patient was seen and examined in emergency room He has been complaining of more pain and swelling involving the left BKA stump Complains of redness and pain involving the right foot as well Seems to be bloated and wants to have more diuresis Denies any chest pain and her palpitation Review of Systems 2 Review of Systems: All systems reviewed and are unremarkable except as noted below Physical Exam Physical Exam: Sitting at the edge of the bed with acute distress due to pain Constitutional: well developed, well nourished, + ill appearing and + morbidly obese Eyes: PERRL, conjunctivae normal, anicteric sclerae ENMT: external ear and nose normal, oropharynx normal Neck: trachea midline, no thyromegaly Respiratory: no respiratory distress Auscultation: + diminished lung sounds and + crackles (Minimal crackles at the bases) Cardiovascular: Rate/Rhythm: regular rate, regular rhythm and + tachycardic Heart Sounds: normal S1 and normal S2; no murmur Extremities: + edema (Chronic edema on the right side with chronic skin changes. Left AKA status) Gastrointestinal (Abdomen): Inspection/Auscultation: + abdomen distended and normal bowel sounds Percussion/Palpation: abdomen soft; abdomen nontender Musculoskeletal: Has left BKA with swelling of the stump and the left thigh. Right leg is swollen with chronic skin change with redness with ulceration at the sole Neurologic: normal touch/pain/proprioception and moves all extremities (Left AKA) Lymphatic: no cervical or axillary lymphadenopathy Results & Data Results & Data Vital Signs (Past 12 Hours) Vital Signs Temp Pulse Resp BP Pulse Ox Pulse Ox O2 Del Method 05/19/23 16:00 36.7 C 85 18 122/74 95 Room Air 05/19/23 12:00 96 05/19/23 11:59 77 16 121/88 95 Room Air 05/19/23 07:25 105 H 16 139/87 96 Room Air O2 Del Method 05/19/23 16:00 05/19/23 12:00 Room Air 05/19/23 11:59 05/19/23 07:25 Laboratory Results Short CBC 05/19/23 Range/Units 03:39 WBC 5.83 (4.8-10.8) K/ul Hgb 11.9 L (14.0-18.0) g/dl Hct 36.7 L (42.0-52.0) % Plt Count 298 (130-400) K/uL BMP 05/19/23 03:39 Sodium 137 Potassium 4.1 Chloride 104 Carbon Dioxide 27 BUN 22 Creatinine 1.16 Glucose 95 Calcium 8.7 Medications Administered Current Inpatient Medications Acetaminophen (Acetaminophen 325 Mg Tab) 650 mg PO DAILY PRN PRN Reason: PAIN, MILD-MODERATE Stop: 06/17/23 20:16 Hydrocodone Bitart/Acetaminophen (Hydrocodone/Acetaminophen 10/325 Tab) 1 tab PO Q6H PRN PRN Reason: Pain Stop: 06/02/23 12:36 Last Admin: 05/19/23 14:28 Dose: 1 tab Albuterol (Albuterol Hfa 8 Gm Inhaler) 2 puffs INH QID PRN PRN Reason: SHORT OF BREATH Stop: 06/17/23 20:16 Aspirin (Aspirin 81 Mg Ectab) 81 mg PO QAM MATT Stop: 06/18/23 08:59 Last Admin: 05/19/23 08:26 Dose: 81 mg Betamethasone Valerate (Betamethasone Maryann 0.1% Cr 15 Gm) 1 appln TOP BID MATT Stop: 06/17/23 20:59 Last Admin: 05/19/23 10:07 Dose: 1 appln Clobetasol Propionate (Clobetasol Propionate 0.05% Cream 15 Gm Tube) 1 appln TOP BID PRN PRN Reason: dry skin Stop: 06/17/23 20:16 Empagliflozin (Empagliflozin 25 Mg Tab) 25 mg PO DAILY MATT Stop: 06/18/23 08:59 Last Admin: 05/19/23 08:27 Dose: 25 mg Ergocalciferol (Ergocalciferol 50,000 Units 1250 Mcg Cap) 50,000 units PO Sa@0900 MATT Stop: 06/22/23 08:59 Ferrous Sulfate (Ferrous Sulfate 325 Mg Tab) 325 mg PO BID MATT Stop: 06/17/23 20:59 Last Admin: 05/19/23 08:24 Dose: 325 mg Fluticasone/Vilanterol (Fluticasone/Vilanterol 200/25mcg 14 Puffs/Inhaler) 1 puffs INH DAILY MATT Stop: 06/18/23 08:59 Last Admin: 05/19/23 08:21 Dose: 1 puffs Furosemide (Furosemide 40 Mg/4 Ml Vial) 80 mg IV BID17 [facility] Stop: 06/18/23 16:59 Last Admin: 05/19/23 16:53 Dose: 80 mg Gabapentin (Gabapentin 300 Mg Cap) 300 mg PO TID [facility] Stop: 06/17/23 20:59 Last Admin: 05/19/23 13:24 Dose: 300 mg Hydromorphone HCl (Hydromorphone Inj 0.5 Mg/0.5 Ml Syr) 0.5 mg IV Q6H PRN PRN Reason: Pain Stop: 06/02/23 12:36 Piperacillin Sod/Tazobactam (Sod 4.5 gm/ Dextrose) 100 mls @ 25 mls/hr IV Q8H [facility]; Protocol Stop: 05/25/23 20:16 Last Infusion: 05/19/23 14:31 Dose: Infused Insulin Aspart (Insulin Aspart Per Unit Charge) 0 units SC ACHS [facility] Stop: 06/18/23 11:59 Last Admin: 05/19/23 12:51 Dose: 12 units Insulin Aspart (Insulin Aspart Per Unit Charge) 0 units SC TODAY@0000,0400 [facility] Stop: 06/19/23 00:00 Insulin Glargine (Lantus Per Unit Charge) 0 units SC HS ONE; Protocol Stop: 05/19/23 21:01 Levothyroxine Sodium (Levothyroxine Sodium 88 Mcg Tablet) 88 mcg PO DAILYBB [facility] Stop: 06/18/23 06:29 Last Admin: 05/19/23 08:25 Dose: 88 mcg Loratadine (Loratadine 10 Mg Tab) 10 mg PO DAILY [facility] Stop: 06/18/23 08:59 Last Admin: 05/19/23 08:27 Dose: 10 mg Magnesium Oxide (Magnesium Oxide 400 Mg Tab) 400 mg PO DAILY [facility] Stop: 06/18/23 08:59 Last Admin: 05/19/23 08:24 Dose: 400 mg Metolazone (Metolazone 5 Mg Tablet) 5 mg PO Q7D PRN PRN Reason: LEG SWELLING Stop: 06/17/23 20:16 Miscellaneous Information (Pharmacy Glycemic Mgmt Consult) 1 each N/A UD PRN; Protocol PRN Reason: Consult Stop: 06/18/23 11:32 Nitroglycerin (Nitroglycerin Sl 0.4 Mg/Tab Tab) 0.4 mg SL UD PRN PRN Reason: Chest Pain Stop: 06/17/23 20:16 Pantoprazole Sodium (Pantoprazole 40 Mg Tab) 40 mg PO QAM [facility] Stop: 06/18/23 08:59 Last Admin: 05/19/23 08:26 Dose: 40 mg Potassium Chloride (Potassium Chloride Crtab 20 Meq Tabcr) 20 meq PO QAM [facility] Stop: 06/18/23 08:59 Last Admin: 05/19/23 08:25 Dose: 20 meq Sacubitril/Valsartan (Valsartan/Sacubitril 26/24mg Tab) 1 tab PO BID [facility] Stop: 06/17/23 20:59 Last Admin: 05/19/23 08:23 Dose: 1 tab Spironolactone (Spironolactone 25 Mg Tab) 25 mg PO DAILY [facility] Stop: 06/18/23 08:59 Last Admin: 05/19/23 08:25 Dose: 25 mg Warfarin Sodium (Warfarin Sod 6 Mg Tab) 6 mg PO Mo@1600 [facility] Stop: 06/17/23 20:59 Last Admin: 05/19/23 00:07 Dose: 6 mg Warfarin Sodium (Warfarin Sod 4 Mg Tab) 4 mg PO SuTuWeThFrSa@1600 [facility] Stop: 06/18/23 15:59 Last Admin: 05/19/23 16:52 Dose: 4 mg (5) CKD (chronic kidney disease) stage 3, GFR 30-59 ml/min Chronic kidney disease stage 3 subtype: stage 3a (GFR 45-59) Qualified Code(s): N18.31 - Chronic kidney disease, stage 3a (9) Hypertension Hypertension type: primary hypertension Qualified Code(s): I10 - Essential (primary) hypertension (10) Atrial fibrillation Atrial fibrillation type: paroxysmal Qualified Code(s): I48.0 - Paroxysmal atrial fibrillation
[2023-05-19] MEDS: HYDROmorphone INJ 0.5 MG/0.5 ML SYR IV PRN (18:04)
--- NOTE | 2023-05-19 22:11 | Orthopedic Consultation ---
Date of Consultation May 19, 2023 Assessment & Plan (1) 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: Patient seen and evaluated in [facility] ED POD C07. Patient resting comfortably. I reviewed x-ray and x-ray findings. No definitive signs of OM. Soft tissue deficits noted on pain film views correlating with open wounds. Reviewed wound culture Enterococcus and P. Vulgaris. No surgical intervention planned at this time. Continue wound care. Prevlon waffle boot ordered to bedside. Will continue to follow while in house. (2) Leg wound, right: (3) Cellulitis of right leg: (4) PVD (peripheral vascular disease): History of Present Illness Attending Physician: Cl Cruz MD History of Present Illness Patient is a 57 years male seen in [facility] Emergency Department POD C CO7 for right foot infection. Patient has a past medical history significant fore morbid obesity, chronic combined systolic and diastolic heart failure, well-controlled asthma, AIDP sacral, CKD, diabetes type 2 on insulin, GERD, history of diabetic ulcers of the foot, left AKA amputation status, hypertension, hypothyroidism, ischemic cardiomyopathy, peripheral artery disease, sleep apnea on BiPAP, and venous stasis ulcer on the right foot. Patient referred to ED by at home nursing. Patient is actively treated at [facility]. Patient finished doxycycline 5 days ago for ongoing right foot infection. He presents to ED for failed out patient Antibiotics. His wound was cultured in ED and he was started with intravenous Zosyn.. Allergies Allergy/AdvReac Type Severity Reaction Status Date / Time benzonatate AdvReac Intermediate choking, Verified 05/18/23 15:49 gagging Home Medications Medication Instructions Recorded Confirmed Type mometasone-formoterol HFA 200 2 puffs inhalation BID 12/21/17 05/18/23 History mcg-5 mcg/actuation aerosol inhaler (Dulera) omeprazole 20 mg capsule,delayed 20 mg PO QAM 12/21/17 05/18/23 History release gabapentin 300 mg capsule 300 mg PO TID 04/12/19 05/18/23 History clobetasol 0.05 % topical cream 1 applic topical BID PRN dry skin 01/18/20 05/18/23 History albuterol sulfate 90 mcg/actuation 2 puff inhalation QID PRN SHORT OF 05/30/20 05/18/23 History aerosol inhaler (Ventolin HFA) BREATH aspirin 81 mg tablet,delayed 81 mg PO QAM 06/12/20 05/18/23 History release levothyroxine 88 mcg tablet 88 mcg PO DAILY 12/13/20 05/18/23 History spironolactone 25 mg tablet 25 mg PO DAILY 12/13/20 05/18/23 History magnesium oxide 400 mg PO DAILY 08/08/21 05/18/23 History sacubitril 24 mg-valsartan 26 mg 1 tab PO BID 09/27/21 05/18/23 History tablet (Entresto) insulin aspart U-100 100 unit/mL 240 unit (2.4 mL) continuous 04/19/22 05/18/23 Rx subcutaneous solution (Novolog subcutaneous infusion DAILY #216 mL U-100 Insulin aspart) tramadol 50 mg tablet 50 mg PO Q6H PRN Pain 06/06/22 05/18/23 History torsemide 20 mg tablet 20 mg PO QAM PRN Edema 12/02/22 05/18/23 History empagliflozin 25 mg tablet 25 mg PO DAILY #90 tabs 03/26/23 05/18/23 Rx acetaminophen 325 mg tablet 650 mg PO DIRECTED PRN PAIN, 05/18/23 05/18/23 History (Tylenol) MILD-MODERATE ergocalciferol (vitamin D2) 1,250 1,250 mcg PO WK 05/18/23 05/18/23 History mcg (50,000 unit) capsule (Vitamin D2) ferrous sulfate 325 mg (65 mg 325 mg PO BID 05/18/23 05/18/23 History iron) tablet hydrocodone 5 mg-acetaminophen 325 1 tab PO Q6H PRN Pain 05/18/23 05/18/23 History mg tablet loratadine 10 mg tablet (Claritin) 10 mg PO DAILY 05/18/23 05/18/23 History metolazone 5 mg tablet 5 mg PO .1-2 X WK 05/18/23 05/18/23 History nitroglycerin 0.4 mg sublingual 0.4 mg sublingual DIRECTED PRN 05/18/23 05/18/23 History tablet (Nitrostat) Chest Pain potassium chloride 10 mEq 20 meq PO QAM 05/18/23 05/18/23 History tablet,extended release(part/cryst) triamcinolone acetonide 0.1 % 1 applic topical BID 05/18/23 05/18/23 History lotion warfarin 2 mg tablet See Rx Instructions .Route .COMPLEX 05/18/23 05/18/23 History Patient History Medical History Depression with suicidal ideation Acute osteomyelitis of left foot Peripheral arterial disease T2DM (type 2 diabetes mellitus) CHF (congestive heart failure) Acute on chronic combined systolic (congestive) and diastolic (congestive) heart failure Diabetic ulcer of right foot Sustained ventricular tachycardia Pneumonia due to COVID-19 virus SARS-CoV-2 positive Sepsis Cellulitis of left lower leg Diabetic ulcer of left heel associated with diabetes mellitus due to underlying condition, limited to breakdown of skin Acute on chronic renal failure Acute hypoxemic respiratory failure Sleep apnea BIPAP Rectal bleeding Depression Diabetes type 2, uncontrolled Vitamin D deficiency Diabetic peripheral neuropathy associated with type 2 diabetes mellitus Deformity of foot Adams fracture Base of left fifth metatarsal, nonhealing x years Dyslipidemia Hypertension Diabetic ulcer of left foot associated with type 2 diabetes mellitus, with fat layer exposed Hx of sepsis 06/2019 Arthritis CAD (coronary artery disease) Venous stasis ulcer of right lower leg with edema of right lower leg Hypokalemia Bacteremia due to group B Streptococcus Lymphedema Sustained VT (ventricular tachycardia) GERD (gastroesophageal reflux disease) Hx of osteomyelitis Hx of myocardial infarction found on testing Asthma well controlled, daily senior care 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 Cardiac defibrillator in situ 2007 with replacement 03/2020. follows with Dr. Maya. CKD (chronic kidney disease) stage 3, GFR 30-59 ml/min Morbid obesity H/O osteomyelitis History of diabetic ulcer of foot Hypothyroidism Ischemic cardiomyopathy Surgical History History of esophagogastroduodenoscopy (EGD) H/O foot surgery LEFT FOOT ULCER DEBRIDEMENT H/O cardiac radiofrequency ablation OCTOBER 2019 ([facility]) AT [facility] History of cardiac cath V. tach -- no stent. 06/2019. unsure where it was done History of sinus surgery Hx of tonsillectomy History of colonoscopy Hx of amputation of lesser toe H/O shoulder surgery left Family History Sister Family history of diabetes mellitus 2 Grandmother (Maternal) Family history of diabetes mellitus Grandfather (Maternal) Family history of diabetes mellitus Father Cancer Mother Cancer Other No family history of adverse response to anesthesia Social History Smoking Status: Never smoker Second Hand Exposure: No; Do You Dip or Chew Tobacco: No; Hx Alcohol Use: Yes Alcohol type: hard liquor Hx Substance Use: No Preferred Language: Panamanian Communication Ability: Effective Battery Tester Field Required: No Beliefs That Will Affect Care: None marital status: Current Living Situation: Alone current occupational status: disabled How many Children do You have: 3 Other Information That Helps Us Care for You: No Feels Safe at Home: Yes Safety Concerns: Feels Safe At This Time Assistive Devices: CPAP and Wheelchair Review of Systems Review of Systems: All systems reviewed & are unremarkable except as noted in HPI & below Physical Exam Constitutional: + morbidly obese, cooperative and comfor table Respiratory: normal respiratory effort Cardiovascular: Vessels: posterior tibial pulses present and dorsalis pedis pulses present Musculoskeletal: Extremities: + amputation noted (Left BKA) and + lower leg abnormality Skin: + lesion (Right leg full thickness wound s) and + ulcer (right hallux amputation site and lateral foot full thickness wound.) Neurologic: Absent epicritic sensation to right lower extremity Psychiatric: Orientation: alert and oriented x 3 Lymphatic: Atrophic changes noted to skin secondary to lymphedema integument shows hyperpigmentation hyperkeratosis hyperplasia with papillomatosis and fibrosis. Results & Data Vital Signs (Past 12 Hours) Vital Signs Temp Pulse Pulse Resp BP Pulse Ox Pulse Ox 05/19/23 21:30 88 18 112/68 96 05/19/23 21:15 96 H 05/19/23 20:08 86 18 103/71 96 05/19/23 19:07 36.7 C 85 18 106/66 97 05/19/23 18:04 96 H 20 118/66 94 05/19/23 17:17 99 H 18 97/72 L 95 05/19/23 16:00 36.7 C 85 18 122/74 95 05/19/23 12:00 96 05/19/23 11:59 77 16 121/88 95 O2 Del Method O2 Del Method O2 Flow Rate 05/19/23 21:30 Nasal Cannula 2 05/19/23 21:15 05/19/23 20:08 Nasal Cannula 2 05/19/23 19:07 Nasal Cannula 2 05/19/23 18:04 Room Air 05/19/23 17:17 Room Air 05/19/23 16:00 Room Air 05/19/23 12:00 Room Air 05/19/23 11:59 Room Air Diagnostic Findings [place], [place] [phone] XRay Report Patient: STANISLAW ALCANTAR Admit Date: 05/18/23 MR#: [id number] Address1: [address] [facility] [facility] Acct ID:[id number] Address2: Date: 1965 [facility] Zip: [place] [address] Age: 57 Location: ED Sex: M Room/Bed: Att Phy: Diagnosis: NA Yazmin Phy: Sherry Maya, Service Date: 05/18/23 Fam Phy: Interpreting Phy: Devyn Flynn MDAdmit Phy: Ordering Phy: Bruno Zarco M.D. cc: ~ XR foot RT 2V CLINICAL HISTORY: wound/infection sole COMPARISON: Right foot CT and right foot radiographs February 24, 2017. Right lower extremity CTA April 09, 2022. FINDINGS: There are postoperative findings consistent with amputation of the distal phalanx of the right first toe. Note is made of a linear 6 mm metallic density within the plantar aspect of the right first toe. Soft tissue gas within the plantar aspect of the right midfoot suggests a wound. No evidence for acute osteomyelitis within the right foot. No additional radiopaque foreign bodies are identified. Diffuse soft tissue swelling is present. There is no acute fracture within the right foot. IMPRESSION: 1. No acute fracture or evidence for acute osteomyelitis within the right foot. 2. Right midfoot soft tissue gas suggestive of a wound. 3. Amputation of the distal phalanx of the right first toe. 4. Linear 6 mm metallic density within the plantar aspect of the right first toe. This favors a small foreign body. ACT 112: Negative or not required by law. Electronically signed by: Devyn Flynn M.D. 05/18/2023 3:36 PM Dictated: 05/18/23 1532 Transcribed: 05/18/[address] [address] / Director: Don Williamson M.D. Clinical Laboratory Report Name: STANISLAW ALCANTAR Jr Acct: [id number] Status: ADM IN : 1965 [facility] Date: 05/18/23 Age: 57 Sex: M Dis Date: Loc: ED Inpatient Rm/Bed: [facility] 13 Spec: [id number] Collected: 05/18/23 Received: 05/18/[address]: Bruno Zarco M.D. Source: Foot,Right OV Order: Ordered: Surf Wnd Cul/Sm Procedure Result Verified Site Gram Stain Final 05/19/23 Gram Stain Result Moderate WBCs Seen Many Gram Positive Cocci Many Gram Negative Bacilli Few Epithelial Cells Surface Wound Culture Preliminary 05/20/23 Organism 1 Proteus vulgaris Quantity Moderate Sens Sensitivities to Follow +MixWound Plus Low Counts of Probable Skin Abbi Organism 2 Probable Enterococcus Quantity Moderate Sens Sensitivities to Follow Organism 3 Gram negative bacilli Quantity Few Sens Sensitivities to Follow P vulgaris RX M.I.C. --- --------- Amox/Clav R >16/8 Amp/Sul R >16/8 Cefepime S <=2 Ceftriaxone R >2 Ciprofloxacin R 1 Ertapenem S <=0.5 Gentamicin S <=4 Levofloxacin I 1 Meropenem S <=1 Tobramycin S <=4 Trimeth/Sulfa S <=2/38 Pip/Tazo S <=16 S = SENSITIVE I = INTERMEDIATE R = RESISTANT Name: STANISLAW ALCANTAR Jr : 1965 PAGE 1 Printed: 05/20/23 0849 END OF REPORT
[2023-05-20] MEDS: INSULIN ASPART PER UNIT CHARGE SC SCH (02:12)
[2023-05-20 05:38] LABS: INR 5.1 (0.9-1.1); Prothrombin Time 50.7 Seconds (9.0-12.0)
[2023-05-20 07:35] LABS: Estimated Average Glucose 163 mg/dl; Hemoglobin A1C 7.3 % (4.5-5.6)
[2023-05-20] MEDS: LANTUS PER UNIT CHARGE SC ONE (11:35)
--- NOTE | 2023-05-20 17:38 | Hospitalist Progress Note ---
Date of Service May 20, 2023 Assessment & Plan (1) Leg wound, right: Plan: Right diabetic foot cellulitis/leg wound--POA Peripheral vascular disease H/O Chronic leg wounds with H/O Osteomyelitis Right first toe foreign body--incidental finding on x-ray --Foot X ray:No acute fracture or evidence for acute osteomyelitis within the right foot.. Right midfoot soft tissue gas suggestive of a wound. Amputation of the distal phalanx of the right first toe. Linear 6 mm metallic density within the plantar aspect of the right first toe. This favors a small foreign body. -- Blood cultures negative to date -- Wound culture positive for Proteus, probable Enterococcus, gram-negative bacilli -- MRSA screen negative --Continue IV Zosyn for now No surgical intervention recommended by podiatry Appreciate podiatry input Prevalon waffle boots Will consider ID evaluation based on cultures Continue wound care (2) Cellulitis of right leg: Plan: As above (3) 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: Plan: HbA1c 7.3 Continue insulin while hospitalized Monitor BGs Glycemic pharmacist consulted (4) Morbid obesity: (5) CKD (chronic kidney disease) stage 3, GFR 30-59 ml/min: Plan: Renal function at baseline Monitor (6) NINA on CPAP: Plan: Continue with the CPAP and/or BiPAP as at home (7) Ischemic cardiomyopathy: Plan: H/O Ischemic cardiomyopathy S/P AICD placement No acute issues Continue home medications (8) Cardiac defibrillator in situ: (9) Hypertension: (10) Atrial fibrillation: Plan: Supratherapeutic INR Hold Coumadin Monitor INR: 5.1 today (11) Chronic diastolic heart failure: Plan: Was on metolazone and oral torsemide PRN continue metolazone, Aldactone Continue IV Lasix Resume torsemide as needed Monitor volume status (12) History of amputation of left foot: Plan: Complains to have swelling of the stamp on the right side Continue diuretics as above (13) Adjustment disorder with mixed disturbance of emotions and conduct: Plan: Continue antidepressant DVT Px: Supratherapeutic INR Coumadin on hold CODE STATUS Full code Admission and Anticipated Discharge Date Admission Date: May 18, 2023 Subjective Patient is seen and examined at bedside States having bilateral foot pain Also reports chronic back pain Denies any chest pain, dyspnea, dizziness, nausea, vomiting, abdominal pain Review of Systems Review of Systems: All systems reviewed & are unremarkable except as noted in Subjective Physical Exam Physical Exam: Physical Exam: Vitals signs as noted above General Appearance:Morbidly Obese, no apparent distress, ill appearing Head: normocephalic, Atraumatic Eyes: normal inspection, EOMI Neck: supple, Trachea midline Respiratory/Chest: Decreased breath sounds, basal crackles, No accessory muscle use Cardiovascular: S1, S2, No murmur Abdomen/GI:Soft, Non tender, Bowel sounds present Extremities/Musculoskeletal:normal inspection, B/L LE edema, erythema, left below-knee amputation, right lower extremity ulceration on the sole Neurologic/Psych:AAOX3, grossly no focal neurological deficits Skin: normal color, warm Results & Data Results & Data Vital Signs (Past 12 Hours) Vital Signs Temp Pulse Resp BP BP Pulse Ox Pulse Ox 05/20/23 17:15 36.4 C L 88 16 109/68 92 05/20/23 16:51 05/20/23 12:00 95 05/20/23 11:33 36.5 C 86 16 99/65 L 94 05/20/23 08:25 36.6 C 89 20 106/71 94 O2 Del Method O2 Del Method 05/20/23 17:15 Room Air 05/20/23 16:51 Room Air 05/20/23 12:00 Room Air 05/20/23 11:33 Room Air 05/20/23 08:25 Room Air (5) CKD (chronic kidney disease) stage 3, GFR 30-59 ml/min Chronic kidney disease stage 3 subtype: stage 3a (GFR 45-59) Qualified Code(s): N18.31 - Chronic kidney disease, stage 3a (9) Hypertension Hypertension type: primary hypertension Qualified Code(s): I10 - Essential (primary) hypertension (10) Atrial fibrillation Atrial fibrillation type: paroxysmal Qualified Code(s): I48.0 - Paroxysmal atrial fibrillation
[2023-05-20] MEDS: oxyCODONE HCL IR 5 MG TAB (IMMEDIATE RELEASE) PO PRN (21:51)
[2023-05-21] MEDS: HYDROmorphone INJ 0.5 MG/0.5 ML SYR IV PRN (02:19)
[2023-05-21 04:58] LABS: Hematocrit (blood only) 40.5 % (42.0-52.0); Hemoglobin 12.4 g/dl (14.0-18.0); Mean Corpuscular Hemoglobin 28.8 pg (25.0-34.0); Mean Corpuscular Hgb Conc 30.6 g/dL (32.0-36.0); Mean Corpuscular Volume 94.2 fL (80.0-100.0); Platelet Count 311 K/uL (130-400); RDW Coefficient of Variation 16.6 % (11.5-14.5); RDW Standard Deviation 57.1 fL (36.4-46.3); White Blood Count 5.29 K/ul (4.8-10.8)
[2023-05-21 05:07] LABS: BUN Creatinine Ratio 13.6 (10-20); Calcium 8.7 mg/dl (8.6-10.3); Creatinine Clr Calc Pharmacy 84.1 ml/min; Est GFR (African American) 50.4 ml/min; Est GFR (Non-African American) 43.5 ml/min
[2023-05-21 05:13] LABS: Prothrombin Time 57.4 Seconds (9.0-12.0)
[2023-05-21 05:19] LABS: INR 5.9 (0.9-1.1)
[2023-05-21] MEDS: PHYTONADIONE 5 MG TAB PO STA (06:23)
[2023-05-21] MEDS: LANTUS PER UNIT CHARGE SC SCH (09:33)
--- NOTE | 2023-05-21 10:01 | Pharmacy Report ---
Pharmacy Glycemic Short Note 2 - Date of Service May 21, 2023 - Glycemic Short BSG Results (Last 24 hours): 05/20/23 05/20/23 05/20/23 12:32 17:12 19:55 Glucose POC Glucose 205 H 187 H 288 H 05/20/23 05/21/23 05/21/23 23:48 03:15 03:49 Glucose 136 H POC Glucose 167 H 125 H 05/21/23 08:19 Glucose POC Glucose 119 H OUTPATIENT ANTIDIABETIC REGIMEN: * Novolog insulin pump * Basal rate: 2 units/hr (48 units/day) * ICR: 3, CF: 30 * TDD: ~71 units/day * Empagliflozin 25 mg PO daily * A1c: 7.3% (05/20/23) ASSESSMENT: 05/21/23: * Patient hyperglycemic yesterday, BSGs ranging 121-288 mg/dL * Received 79 units of insulin yesterday (35 units of basal and 44 units of prandial/correctional bolus) * Fasting BSG of 119 mg/dL this morning - plan to continue current basal dose * Will tighten carb ratio today due to hyperglycemia yesterday 05/19/23: * Mr. Lyle is admitted with right leg wound, patient was to continue home insulin pump while inpatient. Discussed with RN this is reportedly disconnected and he has not been using it, ? when he disconnected. BSGs on lab yesterday 104 mg/dl, Fasting 95 mg/dL this morning. BSG reported to be ~140 at time of consult. To obtain new BSG. * 155 units/day of basal per most recent Endo note. Patient typically requires less while in hospital. Given uncertain amount of time since pump disconnected and normal BSGs will start conservatively with basal/bolus insulin. * Adjusted weight based stress of 2 carb ratio + home correction factor. Will give 25 units x 1 of lantus with additional later today should BSGs trend upward PLAN FOR INPATIENT GLYCEMIC CONTROL: * Continue home empagliflozin 25 mg PO daily * Basal insulin * Lantus 35 units SC daily * Bolus insulin * NovoLog per scale ACHS or Q6hrs while NPO * Goal Range: Low 110 mg/dL - High 140 mg/dL * Correction Factor: 20 mg/dL/unit * Nutritional / Prandial insulin per carb ratio of 1 unit per 4 grams CHO consumed
[2023-05-21] MEDS: diphenhydrAMINE HCL 25 MG/10 ML UDC PO PRN (12:54)
--- NOTE | 2023-05-21 19:05 | Hospitalist Progress Note ---
Date of Service May 21, 2023 Assessment & Plan (1) Leg wound, right: Plan: Right diabetic foot cellulitis/leg wound--POA Peripheral vascular disease H/O Chronic leg wounds with H/O Osteomyelitis Right first toe foreign body--incidental finding on x-ray (discussed with Dr. Bansal on 05/21/2023. Also noted on prior images per Dr. Bansal. No intervention needed.) --Foot X ray:No acute fracture or evidence for acute osteomyelitis within the right foot.. Right midfoot soft tissue gas suggestive of a wound. Amputation of the distal phalanx of the right first toe. Linear 6 mm metallic density within the plantar aspect of the right first toe. This favors a small foreign body. -- Blood cultures negative to date -- Wound culture positive for Proteus, Enterococcus faecalis, gram-negative bacilli -- MRSA screen negative --Continue IV Zosyn for now No surgical intervention recommended by podiatry Appreciate podiatry input Beth lyle boots Consulted ID Input--pending Continue wound care (2) Cellulitis of right leg: Plan: As above (3) 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: Plan: HbA1c 7.3 Continue insulin while hospitalized Monitor BGs Glycemic pharmacist consulted (4) Morbid obesity: (5) CKD (chronic kidney disease) stage 3, GFR 30-59 ml/min: Plan: Renal function at baseline Monitor (6) NINA on CPAP: Plan: Continue with the CPAP and/or BiPAP as at home (7) Ischemic cardiomyopathy: Plan: H/O Ischemic cardiomyopathy S/P AICD placement No acute issues Continue home medications (8) Cardiac defibrillator in situ: (9) Hypertension: (10) Atrial fibrillation: Plan: Supratherapeutic INR Hold Coumadin Monitor INR: 5.9 today (11) Chronic diastolic heart failure: Plan: Was on metolazone and oral torsemide PRN continue metolazone, Aldactone Continue IV Lasix Resume torsemide as needed Monitor volume status (12) History of amputation of left foot: Plan: Complains to have swelling of the stamp on the right side Continue diuretics as above (13) Adjustment disorder with mixed disturbance of emotions and conduct: Plan: Continue antidepressant DVT Px: Supratherapeutic INR Coumadin on hold CODE STATUS Full code Admission and Anticipated Discharge Date Admission Date: May 18, 2023 Subjective Patient is seen and examined at bedside Reports itching which she attributes to bed sheets Still has bilateral foot pain Discussed with podiatry today Has chronic back pain Denies any chest pain, dyspnea, dizziness, nausea, vomiting, abdominal pain Review of Systems Review of Systems: All systems reviewed & are unremarkable except as noted in Subjective Physical Exam Physical Exam: Physical Exam: Vitals signs as noted above General Appearance:Morbidly Obese, no apparent distress, ill appearing Head: normocephalic, Atraumatic Eyes: normal inspection, EOMI Neck: supple, Trachea midline Respiratory/Chest: Decreased breath sounds, basal crackles, No accessory muscle use Cardiovascular: S1, S2, No murmur Abdomen/GI:Soft, Non tender, Bowel sounds present Extremities/Musculoskeletal:normal inspection, B/L LE edema, erythema, left below-knee amputation, right lower extremity ulceration on the sole Neurologic/Psych:AAOX3, grossly no focal neurological deficits Skin: normal color, warm Results & Data Results & Data Vital Signs (Past 12 Hours) Vital Signs Temp Pulse Pulse Resp BP BP Pulse Ox 05/21/23 16:54 36.4 C L 91 H 18 95/57 L 92 05/21/23 14:03 90 05/21/23 11:54 96 H 05/21/23 11:49 36.9 C 90 17 105/55 L 90 05/21/23 07:31 36.8 C 93 H 16 103/63 93 05/21/23 07:22 O2 Del Method 05/21/23 16:54 Room Air 05/21/23 14:03 05/21/23 11:54 05/21/23 11:49 Room Air 05/21/23 07:31 Room Air 05/21/23 07:22 Room Air Laboratory Results Short CBC 05/21/23 Range/Units 03:49 WBC 5.29 (4.8-10.8) K/ul Hgb 12.4 L (14.0-18.0) g/dl Hct 40.5 L (42.0-52.0) % Plt Count 311 (130-400) K/uL BMP 05/21/23 03:49 Sodium 137 Potassium 4.0 Chloride 99 Carbon Dioxide 30 BUN 23 Creatinine 1.69 H Glucose 136 H Calcium 8.7 (5) CKD (chronic kidney disease) stage 3, GFR 30-59 ml/min Chronic kidney disease stage 3 subtype: stage 3a (GFR 45-59) Qualified Code(s): N18.31 - Chronic kidney disease, stage 3a (9) Hypertension Hypertension type: primary hypertension Qualified Code(s): I10 - Essential (primary) hypertension (10) Atrial fibrillation Atrial fibrillation type: paroxysmal Qualified Code(s): I48.0 - Paroxysmal atrial fibrillation
[2023-05-22 06:41] LABS: BUN Creatinine Ratio 15.7 (10-20); Calcium 9.2 mg/dl (8.6-10.3); Creatinine Clr Calc Pharmacy 88.5 ml/min; Est GFR (African American) 56.8 ml/min; Magnesium 2.2 mg/dl (1.7-2.4)
[2023-05-22 07:35] LABS: INR 3.2 (0.9-1.1); Prothrombin Time 32.6 Seconds (9.0-12.0)
--- NOTE | 2023-05-22 08:12 | Pharmacy Report ---
Pharmacy Glycemic Short Note 2 - Date of Service May 22, 2023 - Glycemic Short BSG Results (Last 24 hours): 05/21/23 05/21/23 05/21/23 08:19 12:18 17:23 Glucose POC Glucose 119 H 186 H 162 H 05/21/23 05/22/23 05/22/23 20:12 05:55 08:01 Glucose 159 H POC Glucose 239 H 162 H OUTPATIENT ANTIDIABETIC REGIMEN: * Novolog insulin pump * Basal rate: 2 units/hr (48 units/day) * ICR: 3, CF: 30 * TDD: ~71 units/day * Empagliflozin 25 mg PO daily * A1c: 7.3% (05/20/23) ASSESSMENT: 05/22/23: * Patient received total of 100 units of insulin yesterday, of which 35 units were basal insulin * Fasting BSG >160 mg/dL - will titrate up basal about ~15% this morning and increase to 40 units * BSGs yesterday still above goal range, will tighten CF 05/21/23: * Patient hyperglycemic yesterday, BSGs ranging 121-288 mg/dL * Received 79 units of insulin yesterday (35 units of basal and 44 units of prandial/correctional bolus) * Fasting BSG of 119 mg/dL this morning - plan to continue current basal dose * Will tighten carb ratio today due to hyperglycemia yesterday 05/19/23: * Mr. Lyle is admitted with right leg wound, patient was to continue home insulin pump while inpatient. Discussed with RN this is reportedly disconnected and he has not been using it, ? when he disconnected. BSGs on lab yesterday 104 mg/dl, Fasting 95 mg/dL this morning. BSG reported to be ~140 at time of consult. To obtain new BSG. * 155 units/day of basal per most recent Endo note. Patient typically requires less while in hospital. Given uncertain amount of time since pump disconnected and normal BSGs will start conservatively with basal/bolus insulin. * Adjusted weight based stress of 2 carb ratio + home correction factor. Will give 25 units x 1 of lantus with additional later today should BSGs trend upward PLAN FOR INPATIENT GLYCEMIC CONTROL: * Continue home empagliflozin 25 mg PO daily * Basal insulin * Lantus 40 units SC daily * Bolus insulin * NovoLog per scale ACHS or Q6hrs while NPO * Goal Range: Low 110 mg/dL - High 140 mg/dL * Correction Factor: 15 mg/dL/unit * Nutritional / Prandial insulin per carb ratio of 1 unit per 4 grams CHO consumed
[2023-05-22] MEDS: FUROSEMIDE 40 MG/4 ML VIAL IV SCH (08:15)
[2023-05-22] MEDS: LANTUS PER UNIT CHARGE SC SCH (09:04)
--- NOTE | 2023-05-22 18:12 | Infectious Disease Consult ---
Date of Service May 22, 2023 Telehealth Information I performed this visit using a real-time telehealth connection between my location and the patients location ([facility]). After connecting through interactive tele-video, patient was identified by name and date of and/or wristband check.Patient (or authorized healthcare small business representative) was informed that this was a telemedicine visit and it was being conducted confidentially over secure lines. My office door was closed and no one else was present in the room with me.Patient (or authorized healthcare small business representative) provided consent to proceed with the visit, expressed an understanding of privacy and security of the telemedicine visit, and gave permission to have a hospital small business representative in the room in order to assist with the visit and to conduct portions of the visit, as needed. I informed the patient (or authorized healthcare small business representative) that I reviewed their record and presented the opportunity for them to ask any questions regarding the visit today. The patient agreed to participate. Assessment & Plan (1) Leg wound, right: Plan: Superficial cultures are not reliable. If you feel that this patient has ned lulitis, then I would treat as such (coincidentally, the combination of Bactrim and Augmentin - which can be used to treat the common pathogens associated with cellulitis - will also cover the isolates from the superficial culture). If you are concerned about a deeper infection (OM, abscess), then I would recommend an MRI. Note that no imaging study can completely rule in/out the diagnosis of necr otizing infection - this is a clinical diagnosis and I will defer to IM/Surgery in that regard. Similarly, if this patient requires debridement, then any ABX regimen (PO vs IV, short duration vs long duration, etc) may fail. History of Present Illness History of Present Illness The patient was admitted for purulent drainage from a known foot wound. Plain films were negative for OM. Orthopedics did not feel that OR was indicated. The patient reports having no pain at this time. Allergies Allergy/AdvReac Type Severity Reaction Status Date / Time benzonatate AdvReac Intermediate choking, Verified 05/18/23 15:49 gagging Home Medications Medication Instructions Recorded Confirmed Type mometasone-formoterol HFA 200 2 puffs inhalation BID 12/21/17 05/18/23 History mcg-5 mcg/actuation aerosol inhaler (Dulera) omeprazole 20 mg capsule,delayed 20 mg PO QAM 12/21/17 05/18/23 History release gabapentin 300 mg capsule 300 mg PO TID 04/12/19 05/18/23 History clobetasol 0.05 % topical cream 1 applic topical BID PRN dry skin 01/18/20 05/18/23 History albuterol sulfate 90 mcg/actuation 2 puff inhalation QID PRN SHORT OF 05/30/20 05/18/23 History aerosol inhaler (Ventolin HFA) BREATH aspirin 81 mg tablet,delayed 81 mg PO QAM 06/12/20 05/18/23 History release levothyroxine 88 mcg tablet 88 mcg PO DAILY 12/13/20 05/18/23 History spironolactone 25 mg tablet 25 mg PO DAILY 12/13/20 05/18/23 History magnesium oxide 400 mg PO DAILY 08/08/21 05/18/23 History sacubitril 24 mg-valsartan 26 mg 1 tab PO BID 09/27/21 05/18/23 History tablet (Entresto) insulin aspart U-100 100 unit/mL 240 unit (2.4 mL) continuous 04/19/22 05/18/23 Rx subcutaneous solution (Novolog subcutaneous infusion DAILY #216 mL U-100 Insulin aspart) tramadol 50 mg tablet 50 mg PO Q6H PRN Pain 06/06/22 05/18/23 History torsemide 20 mg tablet 20 mg PO QAM PRN Edema 12/02/22 05/18/23 History empagliflozin 25 mg tablet 25 mg PO DAILY #90 tabs 03/26/23 05/18/23 Rx acetaminophen 325 mg tablet 650 mg PO DIRECTED PRN PAIN, 05/18/23 05/18/23 History (Tylenol) MILD-MODERATE ergocalciferol (vitamin D2) 1,250 1,250 mcg PO WK 05/18/23 05/18/23 History mcg (50,000 unit) capsule (Vitamin D2) ferrous sulfate 325 mg (65 mg 325 mg PO BID 05/18/23 05/18/23 History iron) tablet hydrocodone 5 mg-acetaminophen 325 1 tab PO Q6H PRN Pain 05/18/23 05/18/23 History mg tablet loratadine 10 mg tablet (Claritin) 10 mg PO DAILY 05/18/23 05/18/23 History metolazone 5 mg tablet 5 mg PO .1-2 X WK 05/18/23 05/18/23 History nitroglycerin 0.4 mg sublingual 0.4 mg sublingual DIRECTED PRN 05/18/23 05/18/23 History tablet (Nitrostat) Chest Pain potassium chloride 10 mEq 20 meq PO QAM 05/18/23 05/18/23 History tablet,extended release(part/cryst) triamcinolone acetonide 0.1 % 1 applic topical BID 05/18/23 05/18/23 History lotion warfarin 2 mg tablet See Rx Instructions .Route .COMPLEX 05/18/23 05/18/23 History Patient History Medical History Depression with suicidal ideation Acute osteomyelitis of left foot Peripheral arterial disease T2DM (type 2 diabetes mellitus) CHF (congestive heart failure) Acute on chronic combined systolic (congestive) and diastolic (congestive) heart failure Diabetic ulcer of right foot Sustained ventricular tachycardia Pneumonia due to COVID-19 virus SARS-CoV-2 positive Sepsis Cellulitis of left lower leg Diabetic ulcer of left heel associated with diabetes mellitus due to underlying condition, limited to breakdown of skin Acute on chronic renal failure Acute hypoxemic respiratory failure Sleep apnea BIPAP Rectal bleeding Depression Diabetes type 2, uncontrolled Vitamin D deficiency Diabetic peripheral neuropathy associated with type 2 diabetes mellitus Deformity of foot Adams fracture Base of left fifth metatarsal, nonhealing x years Dyslipidemia Hypertension Diabetic ulcer of left foot associated with type 2 diabetes mellitus, with fat layer exposed Hx of sepsis 06/2019 Arthritis CAD (coronary artery disease) Venous stasis ulcer of right lower leg with edema of right lower leg Hypokalemia Bacteremia due to group B Streptococcus Lymphedema Sustained VT (ventricular tachycardia) GERD (gastroesophageal reflux disease) Hx of osteomyelitis Hx of myocardial infarction found on testing Asthma well controlled, daily emt intermediate 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 Cardiac defibrillator in situ 2007 with replacement 03/2020. follows with Dr. Maya. CKD (chronic kidney disease) stage 3, GFR 30-59 ml/min Morbid obesity H/O osteomyelitis History of diabetic ulcer of foot Hypothyroidism Ischemic cardiomyopathy Surgical History History of esophagogastroduodenoscopy (EGD) H/O foot surgery LEFT FOOT ULCER DEBRIDEMENT H/O cardiac radiofrequency ablation OCTOBER 2019 ([facility]) AT [facility] History of cardiac cath V. tach -- no stent. 06/2019. unsure where it was done History of sinus surgery Hx of tonsillectomy History of colonoscopy Hx of amputation of lesser toe H/O shoulder surgery left Family History Sister Family history of diabetes mellitus 2 Grandmother (Maternal) Family history of diabetes mellitus Grandfather (Maternal) Family history of diabetes mellitus Father Cancer Mother Cancer Other No family history of adverse response to anesthesia Social History Smoking Status: Never smoker Second Hand Exposure: No; Do You Dip or Chew Tobacco: No; Hx Alcohol Use: Yes Alcohol type: hard liquor Hx Substance Use: No Preferred Language: P[place] Communication Ability: Effective [employer]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 Beliefs That Will Affect Care: None marital status: Current Living Situation: Alone current occupational status: disabled How many Children do You have: 3 Other Information That Helps Us Care for You: No Feels Safe at Home: Yes Safety Concerns: Feels Safe At This Time Assistive Devices: CPAP and Wheelchair Review of Systems As reviewed in HPI; a complete ROS was otherwise negative Physical Exam Vitals: see EMR Exam limited due to constraints of telemedicine Gen/Constitutional: appears at stated age, NAD, nontoxic Head: AT, NC Eyes: sclera anicteric, no conjunctival injection ENT: trachea midline Card: appears to be well-perfused Resp: not tachypneic, nml effort, symmetric chest rise, no accessory muscle use Derm: no visible diaphoresis, no visible rash, no visible jaundice Results & Data Vital Signs (Past 12 Hours) Vital Signs Temp Pulse Pulse Resp BP BP Pulse Ox 05/22/23 16:01 36.7 C 102 H 18 124/64 93 05/22/23 15:17 104 H 05/22/23 12:03 36.4 C L 110 H 18 129/79 94 05/22/23 10:00 05/22/23 07:38 36.6 C 95 H 18 136/67 91 05/22/23 07:00 107 H O2 Del Method 05/22/23 16:01 Room Air 05/22/23 15:17 05/22/23 12:03 Room Air 05/22/23 10:00 Room Air 05/22/23 07:38 Room Air 05/22/23 07:00 Laboratory Results Reviewed; see EMR Diagnostic Findings [facility] [address] [place] [address] / Director: Don Williamson M.D. Clinical Laboratory Report Name: STANISLAW ALCANTAR Jr Acct: [id number] Status: ADM IN : 1965 [facility] [place] Date: 05/18/23 Age: 57 Sex: M Dis Date: Loc: [address]/Bed: [facility] Spec: [id number] Collected: 05/18/23-150 Received: 05/18/23-[address]: Bruno Zarco M.D. Source: Foot,Right OV Order: Ordered: Surf Wnd Cul/Sm Procedure Result Verified Site Gram Stain Final 05/19/23-0947 Gram Stain Result Moderate WBCs Seen Many Gram Positive Cocci Many Gram Negative Bacilli Few Epithelial Cells Surface Wound Culture Final 05/22/23-1113 Organism 1 Proteus vulgaris Quantity Moderate Sens Sensitivities to Follow +MixWound Plus Low Counts of Probable Skin Abbi Organism 2 Enterococcus faecalis Quantity Moderate Sens Sensitivities to Follow Organism 3 Myroides species Quantity Few Sens Sensitivities to Follow P vulgaris E faecalis Myroides RX M.I.C. RX M.I.C. RX M.I.C. --- --------- --- --------- --- --------- Amox/Clav R >16/8 Ampicillin S <=2 Amp/Sul R >16/8 Cefepime S <=2 S 8 Ceftazidime R >16 Ceftriaxone R >2 Ciprofloxacin R 1 I 2 Daptomycin S 1 Ertapenem S <=0.5 Gentamicin S <=4 R >8 Gent Synergy S <=500 Levofloxacin I 1 S <=0.5 Meropenem S <=1 S 2 Penicillin S 2 Strep Synergy S <=1000 Tobramycin S <=4 R >8 Trimeth/Sulfa S <=2/38 S <=2/38 Pip/Tazo S <=16 I 64 Vancomycin S 2 Enterococcus faecalis: Positive Combo 33 Streptomycin Synergy Screen S Gentamicin Synergy Screen S S = SENSITIVE I = INTERMEDIATE R = RESISTANT Name: STANISLAW ALCANTAR Jr : 1965 PAGE 1 Printed: 05/22/23 [id number] END OF REPORT [address], [place] [address] / Director: Don Williamson M.D. Clinical Laboratory Report Name: STANISLAW ALCANTAR Jr Acct: [id number] Status: ADM IN : 1965 [facility] [place] Date: 05/18/23 Age: 57 Sex: M Dis Date: Loc: [address] Rm/Bed: W259-1 Spec: [id number] Collected: 05/18/23 Received: 05/18/23-[address]: Bruno Zarco M.D. Source: Blood OV Order: Ordered: Blood Culture Comments: Comment Default is separate sites, same time Procedure Result Verified Site Blood Culture Aerobic Preliminary 01/ No growth in Aerobic bottle after 48 hours. Blood Culture Anaerobic Preliminary 05/20/23-1700 No growth in Anaerobic bottle after 48 hours. Name: STANISLAW ALCANTAR : 1965 PAGE 1 Printed: 05/22/23 [id number] END OF REPORT [address] [place] [address] / Director: Don Williamson M.D. Clinical Laboratory Report Name: STANISLAW ALCANTAR Acct: [id number] Status: ADM IN : 1965 [facility] [place] Date: 05/18/23 Age: 57 Sex: M Dis Date: Loc: [address]/Bed: W2591 Spec: [id number] Collected: 05/18/23 Received: 05/18/[address] [facility] [address]: Bruno Zarco M.D. Source: Blood OV Order: Ordered: Blood Culture Comments: Comment Default is separate sites, same time Blood culture drawn venously from Left Arm. Procedure Result Verified Site Blood Culture Aerobic Preliminary 05/20/23-1800 No growth in Aerobic bottle after 48 hours. Blood Culture Anaerobic Final 05/20/23-011 Test not performed Name: STANISLAW ALCANTAR Jr : 1965 PAGE 1 Printed: 05/22/23 1818 END OF REPORT
--- NOTE | 2023-05-22 18:38 | Hospitalist Progress Note ---
Date of Service May 22, 2023 Assessment & Plan (1) Leg wound, right: Plan: Right diabetic foot cellulitis/leg wound--POA Peripheral vascular disease H/O Chronic leg wounds with H/O Osteomyelitis Right first toe foreign body--incidental finding on x-ray (discussed with Dr. Bansal on 05/21/2023. Also noted on prior images per Dr. Bansal. No intervention needed.) --Foot X ray:No acute fracture or evidence for acute osteomyelitis within the right foot.. Right midfoot soft tissue gas suggestive of a wound. Amputation of the distal phalanx of the right first toe. Linear 6 mm metallic density within the plantar aspect of the right first toe. This favors a small foreign body. -- Blood cultures negative to date -- Wound culture positive for Proteus, Enterococcus faecalis, Myroides species -- MRSA screen negative --Continue IV Zosyn for now No surgical intervention recommended by podiatry Appreciate podiatry input Beth lyle boots Consulted ID Input--pending Continue wound care Continue current antibiotics until ID input Will need follow-up with wound care on discharge (2) Cellulitis of right leg: Plan: As above (3) 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: Plan: HbA1c 7.3 Continue insulin while hospitalized Monitor BGs Glycemic pharmacist consulted (4) Morbid obesity: (5) CKD (chronic kidney disease) stage 3, GFR 30-59 ml/min: Plan: Renal function at baseline Monitor (6) NINA on CPAP: Plan: Continue with the CPAP and/or BiPAP as at home (7) Ischemic cardiomyopathy: Plan: H/O Ischemic cardiomyopathy S/P AICD placement No acute issues Continue home medications (8) Cardiac defibrillator in situ: (9) Hypertension: (10) Atrial fibrillation: Plan: Supratherapeutic INR Hold Coumadin Monitor INR:3.2 today (11) Chronic diastolic heart failure: Plan: Was on metolazone and oral torsemide PRN continue metolazone, Aldactone Continue IV Lasix Resume torsemide as needed Monitor volume status (12) History of amputation of left foot: Plan: Complains to have swelling of the stamp on the right side Continue diuretics as above (13) Adjustment disorder with mixed disturbance of emotions and conduct: Plan: Continue antidepressant DVT Px: Supratherapeutic INR Coumadin on hold CODE STATUS Full code Admission and Anticipated Discharge Date Admission Date: May 18, 2023 Subjective Patient is seen and examined at bedside Itching resolved Foot pain much improved No new complaints other than minimal headache this morning Has chronic back pain Denies any chest pain, dyspnea, dizziness, nausea, vomiting, abdominal pain Review of Systems Review of Systems: All systems reviewed & are unremarkable except as noted in Subjective Physical Exam Physical Exam: Physical Exam: Vitals signs as noted above General Appearance:Morbidly Obese, no apparent distress, ill appearing Head: normocephalic, Atraumatic Eyes: normal inspection, EOMI Neck: supple, Trachea midline Respiratory/Chest: Decreased breath sounds, basal crackles, No accessory muscle use Cardiovascular: S1, S2, No murmur Abdomen/GI:Soft, Non tender, Bowel sounds present Extremities/Musculoskeletal:normal inspection, B/L LE edema, erythema, left below-knee amputation, right lower extremity ulceration on the sole Neurologic/Psych:AAOX3, grossly no focal neurological deficits Skin: normal color, warm Results & Data Results & Data Vital Signs (Past 12 Hours) Vital Signs Temp Pulse Pulse Resp BP BP Pulse Ox 05/22/23 16:01 36.7 C 102 H 18 124/64 93 05/22/23 15:17 104 H 05/22/23 12:03 36.4 C L 110 H 18 129/79 94 05/22/23 10:00 05/22/23 07:38 36.6 C 95 H 18 136/67 91 05/22/23 07:00 107 H O2 Del Method 05/22/23 16:01 Room Air 05/22/23 15:17 05/22/23 12:03 Room Air 05/22/23 10:00 Room Air 05/22/23 07:38 Room Air 05/22/23 07:00 Laboratory Results [facility] 05/22/23 05:55 Sodium 137 Potassium 4.0 Chloride 98 Carbon Dioxide 30 BUN 24 H Creatinine 1.53 H Glucose 159 H Calcium 9.2 (5) CKD (chronic kidney disease) stage 3, GFR 30-59 ml/min Chronic kidney disease stage 3 subtype: stage 3a (GFR 45-59) Qualified Code(s): N18.31 - Chronic kidney disease, stage 3a (9) Hypertension Hypertension type: primary hypertension Qualified Code(s): I10 - Essential (primary) hypertension (10) Atrial fibrillation Atrial fibrillation type: paroxysmal Qualified Code(s): I48.0 - Paroxysmal atrial fibrillation
[2023-05-23 05:37] LABS: Hematocrit (blood only) 41.2 % (42.0-52.0); Hemoglobin 13.3 g/dl (14.0-18.0); Mean Corpuscular Hemoglobin 29.6 pg (25.0-34.0); Mean Corpuscular Hgb Conc 32.3 g/dL (32.0-36.0); Mean Corpuscular Volume 91.8 fL (80.0-100.0); Platelet Count 317 K/uL (130-400); RDW Coefficient of Variation 16.3 % (11.5-14.5); RDW Standard Deviation 54.8 fL (36.4-46.3); Red Blood Count 4.49 M/uL (4.70-6.10); White Blood Count 5.86 K/ul (4.8-10.8)
[2023-05-23 05:56] LABS: BUN Creatinine Ratio 16.9 (10-20); Calcium 8.9 mg/dl (8.6-10.3); Creatinine Clr Calc Pharmacy 95.4 ml/min; Est GFR (African American) 62.2 ml/min; Est GFR (Non-African American) 53.7 ml/min; Potassium 3.9 mmol/L (3.5-5.1)
[2023-05-23 06:16] LABS: INR 2.2 (0.9-1.1); Prothrombin Time 23.2 Seconds (9.0-12.0)
[2023-05-23] MEDS: ERGOCALCIFEROL 1250 MCG (50,000 UNITS) CAP PO SCH (07:52)
[2023-05-23] MEDS: LANTUS PER UNIT CHARGE SC SCH (09:07)
--- NOTE | 2023-05-23 11:44 | Cardiology Consultation ---
Date of Consultation May 23, 2023 Assessment & Plan (1) Acute on chronic combined systolic and diastolic CHF (congestive heart failure): (2) Persistent atrial fibrillation: (3) History of ventricular tachycardia: (4) S/P ICD (internal cardiac defibrillator) procedure: (5) Cellulitis of right leg: Plan IMPRESSION: Medically complex 57-year-old male with past medical history of ischemic cardiomyopathy. LVEF 35 to 39%, 05/2022. Admitted due to right lower extremity cellulitis. Volume status proved difficult to control on home medication regimen and cardiology was consulted. PLAN: HFrEF: Acute volume overload likely due to increased fluids/antibiotics during admission. Hold Metolazone and torsemide-- agree with IV diuresis of with furosemide 60 mg twice daily. Good output over the last 24 hours. BP trending on the lower side. Hold home Entresto, spironolactone, Jardiance to allow for more aggressive diuresis. Will restart metoprolol succinate 50 mg BID given history of Persistent AFIB and VT. Strict I&O. daily weights. 2g sodium diet. CHF Edu Persistent AFIB: Elevated rates due to BB being held. Restart metoprolol succinate 50 mg BID. Continue anticoagulation with Coumadin, INR of 23 Hx of VT s/p AICD: History of ventricular tachycardia status post ablation and implantation of AICD. No VT seen on telemetry this admission Plan as above. Right leg cellulitis: No evidence of osteomyelitis per x-ray. Antibiotics per primary service. I spent a total of 40 minutes on the date of service in preparation, delivery, and documentation of the care provided to the patient excluding any time spent in the performance of separately billed services. MARCUS Stafford Department of Cardiology, [facility] This chart was completed in part utilizing Speech Voice Recognition Software. Grammatical errors, random word insertions, pronoun errors, and incomplete sentences are an occasional consequence of this system due to software limitations, ambient noise, and hardware issues. Any formal questions or concerns about the content, text, or information contained within the body of this dictation should be directly addressed to the provider for clarification. Supervising Physician Co-Signing Physician Notes Attending attestation: I have reviewed the advanced practitioner's documentation, and agree with, and take responsibility for the plan of care. Subjective: Pt comfortable. AF noted on telemetry with rates in the 90s at present, range 70-100 bpm. Has been in AF persistently since admission. Exam: Infraclavicular pacemaker pocket clean dry and intact. Lower extremities with 4+ bilateral lower extremity edema Patient with edema left stump. He states that this started actually before the hospital stay due to an inflammatory reaction from a new sleeve. His right lower extremity is been getting progressively more swollen over the last week. Per his report. There is an open wound on the sole of his mid right foot Data: INR 2.2 Blood cultures without growth thus far Multiple pathogens noted wound cultures Impression/ Plan: Volume overload in the setting of underlying ischemic cardiomyopathy, moderate to severe left ventricular systolic dysfunction. Diabetic foot wound for which patient has been receiving IV antibiotics. Patient with history of ventricular tachycardia for which she had undergone emergent cardioversion by the undersigned several years ago and ventricular tachycardia ablation. -Standard therapies for chronic systolic heart failure limited due to relative hypotension with systolic blood pressure in the 90s. His blood pressure is not however too much different than his usual baseline. Hold Jardiance, Entresto, spironolactone, oral torsemide and short-term favoring being more aggressive with IV diuretic therapy. Agree with IV furosemide 60 mg IV twice daily. Patient has already had significant urine output after initial dose of IV diuretic therapy. Therapies without Molina catheter for now however the may become necessary depending upon his course. Resume metoprolol succinate, home dose 75 mg twice daily at a lower dose of 50 mg twice daily hold for systolic blood pressure less than 90 mmHg. Given his history of ventricular arrhythmias, it is felt that the metoprolol is an important medication for him. Continue Coumadin. Will review outpatient device checks to determine if he was in sinus rhythm at the time of his most recent download. I spent a total of 20 minutes coordinating, documenting, and providing care for this patient excluding time spent in the performance of separately billed services or time spent by another provider. Andres Nazario DO History of Present Illness Reason for Consultation: Acute on chronic combined diastolic and systolic CHF Requesting Physician: Jessica steward Attending Physician: Tommy Allen MD History of Present Illness Medically complex 57-year-old male who initially presented to [facility] emergency department 05/18/2023 due to lower extremity swelling and discomfort. Found to have cellulitis of the right lower extremity--no evidence of osteo myelitis on x-ray. During admission he was treated with his home doses of diuretics, but volume status worsened. Normally maintained on torsemide 40 mg in the morning and 20 mg in the afternoon at home. Takes metolazone 5 mg 1-2 times per week + spironolactone and Jardiance. Cardiology now consulted for CHF management. Upon entrance into the room patient resting in the chair. No acute complaints besides lower extremity edema. No chest pain. No shortness of breath- but patient has been very sedentary while admitted. Uses a wheelchair at home. Has a prosthetic leg. Right leg remains extremely swollen and tender. Dressings in place. Tele: AFIB 90-100s. I&O: -2.5 L over the last 24hrs Primary outpatient mask layout designer: Dr. Maya Past medical history Chronic combined diastolic and systolic CHF Ischemic cardiomyopathy, LVEF 35 to 39% History of ventricular tachycardia status post ablation 11/07/2019 Status post ICD implant Persistent atrial fibrillation, on Coumadin Hypertension Dyslipidemia PVD CKD stage III History of lower extremity diabetic wounds. Osteomyelitis status post left lower extremity BKA Type 2 diabetes, insulin requiring Morbid obesity Obstructive sleep apnea on BiPAP Chronic lower extremity lymphedema Allergies Allergy/AdvReac Type Severity Reaction Status Date / Time benzonatate AdvReac Intermediate choking, Verified 05/18/23 15:49 gagging Home Medications Medication Instructions Recorded Confirmed Type mometasone-formoterol HFA 200 2 puffs inhalation BID 12/21/17 05/18/23 History mcg-5 mcg/actuation aerosol inhaler (Dulera) omeprazole 20 mg capsule,delayed 20 mg PO QAM 12/21/17 05/18/23 History release gabapentin 300 mg capsule 300 mg PO TID 04/12/19 05/18/23 History clobetasol 0.05 % topical cream 1 applic topical BID PRN dry skin 01/18/20 05/18/23 History albuterol sulfate 90 mcg/actuation 2 puff inhalation QID PRN SHORT OF 05/30/20 05/18/23 History aerosol inhaler (Ventolin HFA) BREATH aspirin 81 mg tablet,delayed 81 mg PO QAM 06/12/20 05/18/23 History release levothyroxine 88 mcg tablet 88 mcg PO DAILY 12/13/20 05/18/23 History spironolactone 25 mg tablet 25 mg PO DAILY 12/13/20 05/18/23 History magnesium oxide 400 mg PO DAILY 08/08/21 05/18/23 History sacubitril 24 mg-valsartan 26 mg 1 tab PO BID 09/27/21 05/18/23 History tablet (Entresto) insulin aspart U-100 100 unit/mL 240 unit (2.4 mL) continuous 04/19/22 05/18/23 Rx subcutaneous solution (Novolog subcutaneous infusion DAILY #216 mL U-100 Insulin aspart) tramadol 50 mg tablet 50 mg PO Q6H PRN Pain 06/06/22 05/18/23 History torsemide 20 mg tablet 20 mg PO QAM PRN Edema 12/02/22 05/18/23 History empagliflozin 25 mg tablet 25 mg PO DAILY #90 tabs 03/26/23 05/18/23 Rx acetaminophen 325 mg tablet 650 mg PO DIRECTED PRN PAIN, 05/18/23 05/18/23 History (Tylenol) MILD-MODERATE ergocalciferol (vitamin D2) 1,250 1,250 mcg PO WK 05/18/23 05/18/23 History mcg (50,000 unit) capsule (Vitamin D2) ferrous sulfate 325 mg (65 mg 325 mg PO BID 05/18/23 05/18/23 History iron) tablet hydrocodone 5 mg-acetaminophen 325 1 tab PO Q6H PRN Pain 05/18/23 05/18/23 History mg tablet loratadine 10 mg tablet (Claritin) 10 mg PO DAILY 05/18/23 05/18/23 History metolazone 5 mg tablet 5 mg PO .1-2 X WK 05/18/23 05/18/23 History nitroglycerin 0.4 mg sublingual 0.4 mg sublingual DIRECTED PRN 05/18/23 05/18/23 History tablet (Nitrostat) Chest Pain potassium chloride 10 mEq 20 meq PO QAM 05/18/23 05/18/23 History tablet,extended release(part/cryst) triamcinolone acetonide 0.1 % 1 applic topical BID 05/18/23 05/18/23 History lotion warfarin 2 mg tablet See Rx Instructions .Route .COMPLEX 05/18/23 05/18/23 History Patient History Medical History Depression with suicidal ideation Acute osteomyelitis of left foot Peripheral arterial disease T2DM (type 2 diabetes mellitus) CHF (congestive heart failure) Acute on chronic combined systolic (congestive) and diastolic (congestive) heart failure Diabetic ulcer of right foot Sustained ventricular tachycardia Pneumonia due to COVID-19 virus SARS-CoV-2 positive Sepsis Cellulitis of left lower leg Diabetic ulcer of left heel associated with diabetes mellitus due to underlying condition, limited to breakdown of skin Acute on chronic renal failure Acute hypoxemic respiratory failure Sleep apnea BIPAP Rectal bleeding Depression Diabetes type 2, uncontrolled Vitamin D deficiency Diabetic peripheral neuropathy associated with type 2 diabetes mellitus Deformity of foot Adams fracture Base of left fifth metatarsal, nonhealing x years Dyslipidemia Hypertension Diabetic ulcer of left foot associated with type 2 diabetes mellitus, with fat layer exposed Hx of sepsis 06/2019 Arthritis CAD (coronary artery disease) Venous stasis ulcer of right lower leg with edema of right lower leg Hypokalemia Bacteremia due to group B Streptococcus Lymphedema Sustained VT (ventricular tachycardia) GERD (gastroesophageal reflux disease) Hx of osteomyelitis Hx of myocardial infarction found on testing Asthma well controlled, daily nursing home 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 Cardiac defibrillator in situ 2007 with replacement 03/2020. follows with Dr. Maya. CKD (chronic kidney disease) stage 3, GFR 30-59 ml/min Morbid obesity H/O osteomyelitis History of diabetic ulcer of foot Hypothyroidism Ischemic cardiomyopathy Surgical History History of esophagogastroduodenoscopy (EGD) H/O foot surgery LEFT FOOT ULCER DEBRIDEMENT H/O cardiac radiofrequency ablation OCTOBER 2019 ([facility]) AT [facility] History of cardiac cath V. tach -- no stent. 06/2019. unsure where it was done History of sinus surgery Hx of tonsillectomy History of colonoscopy Hx of amputation of lesser toe H/O shoulder surgery left Family History Sister Family history of diabetes mellitus 2 Grandmother (Maternal) Family history of diabetes mellitus Grandfather (Maternal) Family history of diabetes mellitus Father Cancer Mother Cancer Other No family history of adverse response to anesthesia Social History Smoking Status: Never smoker Second Hand Exposure: No; Do You Dip or Chew Tobacco: No; Hx Alcohol Use: Yes Alcohol type: hard liquor Hx Substance Use: No Preferred Language: Belarusian Communication Ability: Effective 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: No Beliefs That Will Affect Care: None marital status: Current Living Situation: Alone current occupational status: disabled How many Children do You have: 3 Other Information That Helps Us Care for You: No Feels Safe at Home: Yes Safety Concerns: Feels Safe At This Time Assistive Devices: CPAP and Wheelchair Review of Systems Review of Systems: All systems reviewed & are unremarkable except as noted in HPI & below Physical Exam Constitutional: + obese; no acute distress Neck: + thick neck Respiratory: normal respiratory effort; no cough Auscultation: + rales and + wheezes; no rhonchi Cardiovascular: Rate/Rhythm: regular rate and + irregularly irregular Extremities: + edema (+4BLLE pitting edema ) Chest (Breasts): Chest: + pacemaker Gastrointestinal (Abdomen): Percussion/Palpation: abdomen soft; abdomen nontender Psychiatric: Orientation: alert and oriented x 3 Results & Data Vital Signs (Past 12 Hours) Vital Signs Temp Pulse Pulse Resp BP Pulse Ox O2 Del Method 05/23/23 07:58 36.4 C L 104 H 16 96/57 L 93 Room Air 05/23/23 07:14 36.4 C L 98 H 18 124/66 95 Room Air 05/23/23 03:00 36.6 C 113 H 20 122/71 94 Room Air 05/23/23 01:30 96 H 05/23/23 00:25 Room Air Laboratory Results Coagulation 05/23/23 Range/Units 04:33 PT 23.2 H (9.0-12.0) Seconds CBC 05/23/23 Range/Units 04:33 WBC 5.86 (4.8-10.8) K/ul RBC 4.49 L (4.70-6.10) M/uL Hgb 13.3 L (14.0-18.0) g/dl Hct 41.2 L (42.0-52.0) % Plt Count 317 (130-400) K/uL Comprehensive Metabolic Panel 05/23/23 Range/Units 04:33 Sodium 133 L (136-145) mmol/L Potassium 3.9 (3.5-5.1) mmol/L Chloride 96 L (98-107) mmol/L Carbon Dioxide 29 (21-32) mmol/L BUN 24 H (6-23) mg/dl Creatinine 1.42 H (0.6-1.4) mg/dl Glucose 223 H (70-99(Fasting)) mg/dl Calcium 8.9 (8.6-10.3) mg/dl Intake and Output 05/22/23 05/23/23 05/23/23 22:59 06:59 14:59 Intake Total 450 / 999.583 449.583 / 999.583 0 / 0 Output Total 1050 / 3400 700 / 3400 Balance -600 / -2400.417 -250.417 / -2400.417 0 / 0 Intake: IV 100 / 299.583 99.583 / 299.583 0 / 0 Piperacillin/Tazobactam 4.5 gm 100 / 299.583 99.583 / 299.583 0 / 0 In Dextrose 5% Mini-B 100 ml @ 25 mls/hr IV Q8H [facility] Rx#: [id number] Oral 350 / 700 350 / 700 Output: Urine 1050 / 3400 700 / 3400
[2023-05-23] MEDS: METOPROLOL SUCC 50MG EXT REL TAB PO SCH (13:23)
--- NOTE | 2023-05-23 14:13 | Hospitalist Progress Note ---
Date of Service May 23, 2023 Assessment & Plan (1) Leg wound, right: Plan: Right diabetic foot cellulitis/leg wound--POA Peripheral vascular disease H/O Chronic leg wounds with H/O Osteomyelitis Right first toe foreign body--incidental finding on x-ray (discussed with Dr. Bansal on 05/21/2023. Also noted on prior images per Dr. Bansal. No intervention needed.) --Foot X ray:No acute fracture or evidence for acute osteomyelitis within the right foot.. Right midfoot soft tissue gas suggestive of a wound. Amputation of the distal phalanx of the right first toe. Linear 6 mm metallic density within the plantar aspect of the right first toe. This favors a small foreign body. -- Blood cultures negative to date -- Wound culture positive for Proteus, Enterococcus faecalis, Myroides species -- MRSA screen negative --Continue IV Zosyn for now No surgical intervention recommended by podiatry Appreciate podiatry input [employer] boots ID on board: Superficial wound cultures likely unreliable Continue wound care Continue current antibiotics, wound care Will need follow-up with wound care on discharge Will obtain MRI to rule out osteo Further management based on imaging studies (2) Cellulitis of right leg: Plan: As above (3) 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: Plan: HbA1c 7.3 Continue insulin while hospitalized Monitor BGs Glycemic pharmacist consulted (4) Morbid obesity: Plan: BMI 55 (5) CKD (chronic kidney disease) stage 3, GFR 30-59 ml/min: Plan: Renal function at baseline Monitor (6) NINA on CPAP: Plan: Continue with the CPAP and/or BiPAP as at home (7) Ischemic cardiomyopathy: Plan: H/O Ischemic cardiomyopathy S/P AICD placement No acute issues Continue home medications (8) Cardiac defibrillator in situ: (9) Hypertension: (10) Atrial fibrillation: Plan: Supratherapeutic INR on presentation Resume Coumadin Monitor INR:2.2 today (11) Chronic diastolic heart failure: Plan: Hold metoprolol, torsemide Hold Entresto, Aldactone, Jardiance given low BP Restarted metoprolol succinate 50 mg twice daily Continue IV Lasix 60 mg twice daily Appreciate cardiology input Monitor volume status, I's and O's, daily weight, renal function (12) History of amputation of left foot: Plan: Complains to have swelling of the stamp on the right side Continue diuretics as above (13) Adjustment disorder with mixed disturbance of emotions and conduct: Plan: Continue antidepressant DVT Px: Coumadin CODE STATUS Full code Admission and Anticipated Discharge Date Admission Date: May 18, 2023 Subjective Patient is seen and examined at bedside Noted some oozing from bilateral lower extremity wounds Concerned about persistent significant lower extremity edema and pain Chronic Itching Has chronic back pain Denies any chest pain, dyspnea, dizziness, nausea, vomiting, abdominal pain Review of Systems Review of Systems: All systems reviewed & are unremarkable except as noted in Subjective Physical Exam Physical Exam: Physical Exam: Vitals signs as noted above General Appearance:Morbidly Obese, no apparent distress, ill appearing Head: normocephalic, Atraumatic Eyes: normal inspection, EOMI Neck: supple, Trachea midline Respiratory/Chest: Decreased breath sounds, basal crackles, No accessory muscle use Cardiovascular: S1, S2, No murmur Abdomen/GI:Soft, Non tender, Bowel sounds present Extremities/Musculoskeletal:normal inspection, B/L LE edema, erythema, left below-knee amputation, right lower extremity ulceration on the sole Neurologic/Psych:AAOX3, grossly no focal neurological deficits Skin: normal color, warm Results & Data Results & Data Vital Signs (Past 12 Hours) Vital Signs Temp Pulse Resp BP Pulse Ox O2 Del Method 05/23/23 11:38 36.5 C 94 H 16 96/53 L 96 Room Air 05/23/23 07:58 36.4 C L 104 H 16 96/57 L 93 Room Air 05/23/23 07:14 36.4 C L 98 H 18 124/66 95 Room Air 05/23/23 03:00 36.6 C 113 H 20 122/71 94 Room Air Laboratory Results Short CBC 05/23/23 Range/Units 04:33 WBC 5.86 (4.8-10.8) K/ul Hgb 13.3 L (14.0-18.0) g/dl Hct 41.2 L (42.0-52.0) % Plt Count 317 (130-400) K/uL BMP 05/23/23 04:33 Sodium 133 L Potassium 3.9 Chloride 96 L Carbon Dioxide 29 BUN 24 H Creatinine 1.42 H Glucose 223 H Calcium 8.9 (5) CKD (chronic kidney disease) stage 3, GFR 30-59 ml/min Chronic kidney disease stage 3 subtype: stage 3a (GFR 45-59) Qualified Code(s): N18.31 - Chronic kidney disease, stage 3a (9) Hypertension Hypertension type: primary hypertension Qualified Code(s): I10 - Essential (primary) hypertension (10) Atrial fibrillation Atrial fibrillation type: paroxysmal Qualified Code(s): I48.0 - Paroxysmal atrial fibrillation
[2023-05-23] MEDS: WARFARIN SOD 3 MG TAB PO SCH (16:45)
[2023-05-23] MEDS: FUROSEMIDE 40 MG/4 ML VIAL IV SCH (16:46)
[2023-05-24 06:12] LABS: BUN Creatinine Ratio 17.2 (10-20); Calcium 9.5 mg/dl (8.6-10.3); Creatinine Clr Calc Pharmacy 86.2 ml/min; Est GFR (African American) 55.1 ml/min; Est GFR (Non-African American) 47.5 ml/min; Potassium 4.2 mmol/L (3.5-5.1)
[2023-05-24 06:21] LABS: Prothrombin Time 21.4 Seconds (9.0-12.0)
[2023-05-24] MEDS: LANTUS PER UNIT CHARGE SC SCH (08:27)
[2023-05-24] MEDS ORDERED: TORSEMIDE 20 MG TAB PO SCH (09:00)
--- NOTE | 2023-05-24 12:55 | Cardiology Progress Note ---
Date of Service May 24, 2023 Assessment & Plan (1) Acute on chronic combined systolic and diastolic CHF (congestive heart failure): (2) Persistent atrial fibrillation: (3) History of ventricular tachycardia: (4) S/P ICD (internal cardiac defibrillator) procedure: (5) Cellulitis of right leg: Plan IMPRESSION: Medically complex 57-year-old male with past medical history of ischemic cardiomyopathy. LVEF 35 to 39%, 05/2022. Admitted due to right lower extremity cellulitis. Volume status proved difficult to control on home medication regimen and cardiology was consulted. PLAN: HFrEF: I am concerned that if the edema does not improve, his healing will be impaired placing his right foot in jeopardy His urine output overnight has been lackluster in last 24 hours Strict I&O. daily weights. 2g sodium diet. Pt agreeable to Molina catheter Change IV furosemide 60 mg IV BID to bumex 1 mg IV TID, next dose at 1400 Transfer to PCU to plan for more agressive diuresis in the setting of LV systolic dysfunction. Future considerations include furosemide infusion. Persistent AFIB: Has been in AF since 09/03/22 per ICD data. Continue metoprolol succinate 50 mg BID INR 2. Continue anticoagulation with Coumadin, INR of 23 Hx of VT s/p AICD: History of ventricular tachycardia status post ablation and implantation of AICD. No VT seen on telemetry this admission Plan as above. Right leg cellulitis: No evidence of osteomyelitis per x-ray. Antibiotics per primary service. Case discussed with nursing and Dr Allen for the purpose of coordination of care. I spent a total of 40 minutes on the date of service in preparation, delivery, and documentation of the care provided to the patient excluding any time spent in the performance of separately billed services. This chart was completed in part utilizing Speech Voice Recognition Software. Grammatical errors, random word insertions, pronoun errors, and incomplete sentences are an occasional consequence of this system due to software limitations, ambient noise, and hardware issues. Any formal questions or concerns about the content, text, or information contained within the body of this dictation should be directly addressed to the provider for clarification. Admission and Anticipated Discharge Date Admission Date: May 18, 2023 Subjective Mr Lyle is seen in cardiology follow up of volume overload and a severe right diabetic foot wound. Rate controlled AF with rate in the 90s present on telemetry. Physical Exam Constitutional: + obese; no acute distress Neck: + thick neck Respiratory: normal respiratory effort; no cough Auscultation: + rales and + wheezes; no rhonchi Cardiovascular: Rate/Rhythm: regular rate and + irregularly irregular Extremities: + edema (+4BLLE pitting edema ) Chest (Breasts): Chest: + pacemaker Gastrointestinal (Abdomen): Percussion/Palpation: abdomen soft; abdomen nontender Musculoskeletal: large foot wound on sole of right foot. Psychiatric: Orientation: alert and oriented x 3 Results & Data Vital Signs (Past 12 Hours) Vital Signs Temp Pulse Pulse Resp BP Pulse Ox O2 Del Method 05/24/23 12:46 36.4 C L 89 16 102/61 91 Room Air 05/24/23 08:00 93 H 05/24/23 07:46 36.6 C 92 H 16 111/62 90 Room Air 05/24/23 03:10 36.6 C 84 20 100/65 92 Room Air Laboratory Results Coagulation 05/24/23 Range/Units 05:07 PT 21.4 H (9.0-12.0) Seconds Comprehensive Metabolic Panel 05/24/23 Range/Units 05:07 Sodium 135 L (136-145) mmol/L Potassium 4.2 (3.5-5.1) mmol/L Chloride 98 (98-107) mmol/L Carbon Dioxide 28 (21-32) mmol/L BUN 27 H (6-23) mg/dl Creatinine 1.57 H (0.6-1.4) mg/dl Glucose 170 H (70-99(Fasting)) mg/dl Calcium 9.5 (8.6-10.3) mg/dl Intake and Output 05/23/23 05/24/23 05/24/23 22:59 06:59 14:59 Intake Total 1005 / 1655 550 / 1655 100 / 100 Output Total 1300 / 2100 300 / 2100 Balance -295 / -445 250 / -445 100 / 100 Intake: IV 100 / 300 100 / 300 100 / 100 Piperacillin/Tazobactam 4.5 gm 100 / 300 100 / 300 100 / 100 In Dextrose 5% Mini-B 100 ml @ 25 mls/hr IV Q8H [facility] Rx#: [id number] Oral 905 / 1355 450 / 1355 Output: Urine 1300 / 2099 300 / 2100
--- NOTE | 2023-05-24 14:08 | Pharmacy Report ---
Pharmacy Glycemic Short Note 2 - Date of Service May 24, 2023 - Glycemic Short BSG Results (Last 24 hours): 05/23/23 05/23/23 05/24/23 17:23 20:27 05:07 Glucose 170 H POC Glucose 161 H 135 H 05/24/23 05/24/23 08:21 12:12 Glucose POC Glucose 184 H 191 H OUTPATIENT ANTIDIABETIC REGIMEN: * Novolog insulin pump * Basal rate: 2 units/hr (48 units/day) * ICR: 3, CF: 30 * TDD: ~71 units/day * Empagliflozin 25 mg PO daily * A1c: 7.3% (05/20/23) ASSESSMENT: 05/24/23: * Fasting BSG has been trending up over past several days, 184 mg/dL this morning. Basal insulin increased yesterday and again today. * Novolog tightened yesterday due to intermittent hyperglycemia - will continue these tightened parameters today * Imaging planned for tomorrow morning. Remains on Zosyn. 05/22/23: * Patient received total of 100 units of insulin yesterday, of which 35 units were basal insulin * Fasting BSG >160 mg/dL - will titrate up basal about ~15% this morning and increase to 40 units * BSGs yesterday still above goal range, will tighten CF 05/21/23: * Patient hyperglycemic yesterday, BSGs ranging 121-288 mg/dL * Received 79 units of insulin yesterday (35 units of basal and 44 units of prandial/correctional bolus) * Fasting BSG of 119 mg/dL this morning - plan to continue current basal dose * Will tighten carb ratio today due to hyperglycemia yesterday 05/19/23: * Mr. Lyle is admitted with right leg wound, patient was to continue home insulin pump while inpatient. Discussed with RN this is reportedly disconnected and he has not been using it, ? when he disconnected. BSGs on lab yesterday 104 mg/dl, Fasting 95 mg/dL this morning. BSG reported to be ~140 at time of consult. To obtain new BSG. * 155 units/day of basal per most recent Endo note. Patient typically requires less while in hospital. Given uncertain amount of time since pump disconnected and normal BSGs will start conservatively with basal/bolus insulin. * Adjusted weight based stress of 2 carb ratio + home correction factor. Will give 25 units x 1 of lantus with additional later today should BSGs trend upward PLAN FOR INPATIENT GLYCEMIC CONTROL: * Continue home empagliflozin 25 mg PO daily * Basal insulin * Lantus 55 units SC daily * Bolus insulin * NovoLog per scale ACHS or Q6hrs while NPO * Goal Range: Low 110 mg/dL - High 140 mg/dL * Correction Factor: 12 mg/dL/unit * Nutritional / Prandial insulin per carb ratio of 1 unit per 3 grams CHO consumed
[2023-05-24] MEDS: BUMETANIDE 1 MG in SYRINGE 0 ML IV SCH (14:23)
--- NOTE | 2023-05-24 16:18 | Hospitalist Progress Note ---
Date of Service May 24, 2023 Assessment & Plan (1) Leg wound, right: Plan: Right diabetic foot cellulitis/leg wound--POA Peripheral vascular disease H/O Chronic leg wounds with H/O Osteomyelitis Right first toe foreign body--incidental finding on x-ray (discussed with Dr. Bansal on 05/21/2023. Also noted on prior images per Dr. Bansal. No intervention needed.) --Foot X ray:No acute fracture or evidence for acute osteomyelitis within the right foot.. Right midfoot soft tissue gas suggestive of a wound. Amputation of the distal phalanx of the right first toe. Linear 6 mm metallic density within the plantar aspect of the right first toe. This favors a small foreign body. -- Blood cultures negative -- Wound culture positive for Proteus, Enterococcus faecalis, Myroides species -- MRSA screen negative --Continue IV Zosyn for now No surgical intervention recommended by podiatry Appreciate podiatry input Prevalon [email or web address] boots ID on board: Superficial wound cultures likely unreliable Continue wound care Will need follow-up with wound care on discharge MRI to rule out osteo--pending Continue IV antibiotics for now Acute on chronic diastolic heart failure--POA H/O Ischemic cardiomyopathy S/P AICD placement Hold torsemide Hold Entresto, Aldactone, Jardiance given low BP Continue metoprolol succinate 50 mg twice daily Continue IV Lasix 60 mg twice daily>> changed to Bumex 1 g 3 times daily Appreciate cardiology input Monitor volume status, I's and O's, daily weight, renal function Fluid restriction (2) Cellulitis of right leg: Plan: As above (3) 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: Plan: HbA1c 7.3 Continue insulin while hospitalized Monitor BGs Glycemic pharmacist consulted (4) Morbid obesity: Plan: BMI 55 (5) CKD (chronic kidney disease) stage 3, GFR 30-59 ml/min: Plan: Renal function at baseline Monitor (6) NINA on CPAP: Plan: Continue with the CPAP and/or BiPAP as at home (7) Ischemic cardiomyopathy: Plan: H/O Ischemic cardiomyopathy S/P AICD placement Management as above (8) Cardiac defibrillator in situ: Plan: H/O ventricular tachycardia S/P ablation, AICD Continue beta-noy (9) Hypertension: (10) Atrial fibrillation: Plan: Supratherapeutic INR on presentation Monitor INR:2.0 today Continue Coumadin--adjust dose as needed (11) Chronic diastolic heart failure: Plan: Management as above (12) History of amputation of left foot: Plan: Complains to have swelling of the stamp on the right side Continue diuretics as above (13) Adjustment disorder with mixed disturbance of emotions and conduct: Plan: Continue antidepressant DVT Px: Coumadin CODE STATUS Full code Admission and Anticipated Discharge Date Admission Date: May 18, 2023 Subjective Patient is seen and examined at bedside Subjectively feels better today Reports chronic neck pain unchanged Still has significant lower extremity edema Discussed with cardiology today Lower extremity pain improved Denies any chest pain, dyspnea, dizziness, nausea, vomiting, abdominal pain Review of Systems Review of Systems: All systems reviewed & are unremarkable except as noted in Subjective Physical Exam Physical Exam: Physical Exam: Vitals signs as noted above General Appearance:Morbidly Obese, no apparent distress, ill appearing Head: normocephalic, Atraumatic Eyes: normal inspection, EOMI Neck: supple, Trachea midline Respiratory/Chest: Decreased breath sounds, basal crackles, No accessory muscle use Cardiovascular: S1, S2, No murmur Abdomen/GI:Soft, Non tender, Bowel sounds present Extremities/Musculoskeletal:normal inspection, B/L LE edema, erythema, left below-knee amputation, right lower extremity ulceration on the sole Neurologic/Psych:AAOX3, grossly no focal neurological deficits Skin: normal color, warm Results & Data Results & Data Vital Signs (Past 12 Hours) Vital Signs Temp Pulse Pulse Resp BP BP Pulse Ox 05/24/23 16:07 36.4 C L 80 20 102/68 97 05/24/23 12:46 36.4 C L 89 16 102/61 91 05/24/23 08:00 93 H 05/24/23 07:46 36.6 C 92 H 16 111/62 90 O2 Del Method 05/24/23 16:07 Room Air 05/24/23 12:46 Room Air 05/24/23 08:00 05/24/23 07:46 Room Air Laboratory Results BMP 05/24/23 05:07 Sodium 135 L Potassium 4.2 Chloride 98 Carbon Dioxide 28 BUN 27 H Creatinine 1.57 H Glucose 170 H Calcium 9.5 (5) CKD (chronic kidney disease) stage 3, GFR 30-59 ml/min Chronic kidney disease stage 3 subtype: stage 3a (GFR 45-59) Qualified Code(s): N18.31 - Chronic kidney disease, stage 3a (9) Hypertension Hypertension type: primary hypertension Qualified Code(s): I10 - Essential (primary) hypertension (10) Atrial fibrillation Atrial fibrillation type: paroxysmal Qualified Code(s): I48.0 - Paroxysmal atrial fibrillation
[2023-05-24] MEDS: ALBUMIN 25% 25 GM/100 ML VIAL IV ONE (19:51)
[2023-05-24 20:00] LABS: Hematocrit (blood only) 44.6 % (42.0-52.0); Hemoglobin 13.9 g/dl (14.0-18.0)
[2023-05-24 20:16] LABS: BUN Creatinine Ratio 19.5 (10-20); Creatinine Clr Calc Pharmacy 85.2 ml/min; Est GFR (African American) 54.3 ml/min; Est GFR (Non-African American) 46.8 ml/min; Magnesium 2.3 mg/dl (1.7-2.4); Potassium 4.1 mmol/L (3.5-5.1)
[2023-05-25] MEDS: DOCUSATE SODIUM/SENNA 50/8.6MG TAB PO STA (02:22)
[2023-05-25] MEDS: POLYETHYLENE (MIRALAX) 17 GM PACK PO STA (03:14)
[2023-05-25 08:15] LABS: BUN Creatinine Ratio 21.6 (10-20); Calcium 9.6 mg/dl (8.6-10.3); Est GFR (African American) 66.7 ml/min; Est GFR (Non-African American) 57.6 ml/min; Potassium 3.9 mmol/L (3.5-5.1)
[2023-05-25 08:29] LABS: INR 2.1 (0.9-1.1)
--- NOTE | 2023-05-25 08:47 | Cardiology Progress Note ---
Date of Service May 25, 2023 Assessment & Plan (1) Acute on chronic combined systolic and diastolic CHF (congestive heart failure): (2) Persistent atrial fibrillation: (3) History of ventricular tachycardia: (4) S/P ICD (internal cardiac defibrillator) procedure: (5) Cellulitis of right leg: Plan IMPRESSION: Medically complex 57-year-old male with past medical history of ischemic cardiomyopathy. LVEF 35 to 39%, 05/2022. Admitted due to right lower extremity cellulitis. Volume status proved difficult to control on home medication regimen and cardiology was consulted. PLAN: HFrEF: Output remains suboptimal with a negative fluid balance of 310ml thus far today. -Daily weights appear unchanged. Strict I&O. daily weights. 2g sodium diet. Pt continues with Molina catheter, urine has alejandra appearance patient continues on bumex 1 mg IV TID; and renal function is stable. Cr 1.53, will discuss with Dr. Nazario about consideration to transition to a Lasix gtt for more aggressive diuresis given his systolic dysfunction Persistent AFIB: Has been in AF since 09/03/22 per ICD data. Continue metoprolol succinate 50 mg BID INR 2.1 today. Continue anticoagulation with Coumadin, INR of 23 Hx of VT s/p AICD: History of ventricular tachycardia status post ablation and implantation of AICD. No VT seen on telemetry this admission Plan as above. Right leg cellulitis: No evidence of osteomyelitis per x-ray. Antibiotics per primary service. Case has been discussed with Dr. Nazario. Further recommendations regarding plan of care as per his assessment. I spent a total of 30 minutes on the date of service in preparation, delivery, documentation of the care provided to the patient excluding any time spent in the performance of separately billed services. MARCUS [facility] Admission and Anticipated Discharge Date Admission Date: May 18, 2023 Supervising Physician Co-Signing Physician Notes Attending attestation: I have reviewed the advanced practitioner's documentation, and agree with, and take responsibility for the plan of care. Subjective: Patient without acute complaint. Telemetry reveals atrial fibrillation in the 90s with occasional isolated PVCs, no sustained ventricular arrhythmias. Exam: Cardiovascular: Irregular rhythm, no murmurs Extremities: 4+ right lower extremity edema, erythema, foot wound at sole of foot Impression/ Plan: Cellulitis Right diabetic foot wound History of left BKA Ischemic cardiomyopathy, chronic heart failure reduced ejection fraction * Edema felt to be multifactorial due to CHF and chronic venous insufficiency * Blood pressure improved increased urine output noted since transitioning to Bumex 1 mg IV 3 times daily. * Titrate diuretic to Bumex 2 mg IV 3 times daily * Continue metoprolol succinate 50 mg 3 times daily. Genevieve Mendiola sp ironolactone on hold. * Molina catheter remains in place. I spent a total of 20 minutes coordinating, documenting, and providing care for this patient excluding time spent in the performance of separately billed services or time spent by another provider. Andres Nazario DO Subjective 05/25/23: Patient seen and examined in follow up. patient is out of bed to chair today and has his left lower extremity prosthetic on. He states that he just feels miserable. Denies any chest pain, pressure, palpitations. right leg is currently under dressing, but demonstrates continues swelling and erythema. Review of telemetry shows A-fib with PVC's no acute events overnight. most recent labs, documentation and imaging have been reviewed. Review of Systems Review of Systems: All systems reviewed & are unremarkable except as noted in HPI & below Physical Exam Constitutional: + ill appearing, + obese and + edematous Neck: normal visual inspection and trachea midline Respiratory: normal respiratory effort, lungs clear to auscultation Cardiovascular: Rate/Rhythm: + irregularly irregular Heart Sounds: normal S1 and normal S2 Vessels: no JVD Extremities: + pedal edema and + edema Left below the knee amputation Right lower leg under dressing Skin: + erythema (Right lower extremity ) Psychiatric: Orientation: alert and oriented x 3 Eye Contact: good eye contact Affect: + depressed affect Mood: + depressed mood Thought Process: goal directed thought process Results & Data Vital Signs (Past 12 Hours) Vital Signs Temp Pulse Pulse Resp BP BP Pulse Ox 05/25/23 07:13 36.0 C L 89 16 123/79 95 05/25/23 04:04 36.9 C 91 H 20 135/70 91 05/25/23 00:21 36.5 C 91 H 20 107/70 93 05/24/23 23:24 85 O2 Del Method 05/25/23 07:13 Room Air 05/25/23 04:04 Room Air 05/25/23 00:21 Room Air 01/28/24 23:24 Laboratory Results Coagulation 05/25/23 Range/Units 06:29 PT 22.0 H (9.0-12.0) Seconds CBC 05/24/23 Range/Units 19:40 Hgb 13.9 L (14.0-18.0) g/dl Hct 44.6 (42.0-52.0) % Comprehensive Metabolic Panel 05/24/23 05/25/23 Range/Units 19:40 06:29 Sodium 136 136 (136-145) mmol/L Potassium 4.1 3.9 (3.5-5.1) mmol/L Chloride 100 99 (98-107) mmol/L Carbon Dioxide 28 29 (21-32) mmol/L BUN 31 H 29 H (6-23) mg/dl Creatinine 1.59 H 1.34 (0.6-1.4) mg/dl Glucose 111 H 235 H (70-99(Fasting)) mg/dl Calcium 9.0 9.6 (8.6-10.3) mg/dl Intake and Output 05/24/23 05/25/23 05/25/23 22:59 06:59 14:59 Intake Total 800 / 2040 900 / 2040 100 / 100 Output Total 850 / 2350 1000 / 2350 Balance -50 / -310 -100 / -310 100 / 100 Intake: IV 200 / 400 100 / 400 100 / 100 Albumin 25% 25 gm In 100 ml @ 100 / 100 50 mls/hr IV ONE ONE Rx#: [id number] Piperacillin/Tazobactam 4.5 gm 100 / 300 100 / 300 100 / 100 In Dextrose 5% Mini-B 100 ml @ 25 mls/hr IV Q8H [facility] Rx#: [id number] Oral 600 / 1640 800 / 1640 Output: Urine Amount (Catheter) 850 / 1850 1000 / 1850 Molina/Indwelling 850 / 1850 1000 / 1850
[2023-05-25] MEDS: LANTUS PER UNIT CHARGE SC SCH (09:02)
--- NOTE | 2023-05-25 11:56 | Pharmacy Report ---
Pharmacy Glycemic Short Note 2 - Date of Service May 25, 2023 - Glycemic Short BSG Results (Last 24 hours): 05/24/23 05/24/23 05/24/23 12:12 16:12 19:33 Glucose POC Glucose 191 H 103 H 98 05/24/23 05/25/23 05/25/23 19:40 06:29 07:36 Glucose 111 H 235 H POC Glucose 232 H 05/25/23 11:22 Glucose POC Glucose 239 H OUTPATIENT ANTIDIABETIC REGIMEN: * Novolog insulin pump * Basal rate: 2 units/hr (48 units/day) * ICR: 3, CF: 30 * TDD: ~71 units/day * Empagliflozin 25 mg PO daily * HbA1c: 7.3% (05/20/23) ASSESSMENT: 05/25: * Fasting BSG continues to be an issue, elevated at 232 mg/dL this AM. Confirmed that no snacking or breakfast was consumed prior to accucheck. More likely that insufficient basal dose has led to this elevation although cannot rule out rebound hyperglycemia from overnight lows. Patient is requiring significantly more insulin inpatient than outpatient. * Basal dose will be increased for a fourth consecutive day. Once fasting BSG starts to trend down, may need to back off basal dose. * Novolog was tightened on Thursday. Trend downward to below goal range throughout the evening last night. Given continued increase in basal dosing, will back off on carb ratio today. 05/24: * Fasting BSG has been trending up over past several days, 184 mg/dL this morning. Basal insulin increased yesterday and again today. * Novolog tightened yesterday due to intermittent hyperglycemia - will continue these tightened parameters today * Imaging planned for tomorrow morning. Remains on Zosyn. 05/22: * Patient received total of 100 units of insulin yesterday, of which 35 units were basal insulin * Fasting BSG >160 mg/dL - will titrate up basal about ~15% this morning and increase to 40 units * BSGs yesterday still above goal range, will tighten CF 05/21: * Patient hyperglycemic yesterday, BSGs ranging 121-288 mg/dL * Received 79 units of insulin yesterday (35 units of basal and 44 units of prandial/correctional bolus) * Fasting BSG of 119 mg/dL this morning - plan to continue current basal dose * Will tighten carb ratio today due to hyperglycemia yesterday 05/19: * Mr. Lyle is admitted with right leg wound, patient was to continue home insulin pump while inpatient. Discussed with RN this is reportedly disconnected and he has not been using it, ? when he disconnected. BSGs on lab yesterday 104 mg/dl, Fasting 95 mg/dL this morning. BSG reported to be ~140 at time of consult. To obtain new BSG. * 155 units/day of basal per most recent Endo note. Patient typically requires less while in hospital. Given uncertain amount of time since pump disconnected and normal BSGs will start conservatively with basal/bolus insulin. * Adjusted weight based stress of 2 carb ratio + home correction factor. Will give 25 units x 1 of lantus with additional later today should BSGs trend upward PLAN FOR INPATIENT GLYCEMIC CONTROL: * Continue home empagliflozin 25 mg PO daily * Has been on hold since 05/23/23 * Basal insulin * Lantus 65 units SC daily * Bolus insulin * NovoLog per scale ACHS or Q6hrs while NPO * Goal Range: Low 110 mg/dL - High 140 mg/dL * Correction Factor: 12 mg/dL/unit * Nutritional / Prandial insulin per carb ratio of 1 unit per 4 grams CHO consumed
[2023-05-25] MEDS ORDERED: CARBOHYDRATES FOR HYPOGLYCEMIA PO PRN (14:15)
[2023-05-25] MEDS ORDERED: DEXTROSE 50% 50 ML SYRINGE IV PRN (14:15)
[2023-05-25] MEDS ORDERED: GLUCOSE 10 TAB/TUBE PO PRN (14:15)
[2023-05-25] MEDS ORDERED: GLUCOSE 40% GEL 15 GM TUBE PO PRN (14:15)
[2023-05-25] MEDS ORDERED: GLUCAGON FOR INJ 1 MG VIAL IM PRN (14:15)
--- NOTE | 2023-05-25 15:21 | Hospitalist Progress Note ---
Date of Service May 25, 2023 Assessment & Plan (1) Leg wound, right: Plan: Right diabetic foot cellulitis/leg wound--POA Peripheral vascular disease H/O Chronic leg wounds with H/O Osteomyelitis Right first toe foreign body--incidental finding on x-ray (discussed with Dr. Bansal on 05/21/2023. Also noted on prior images per Dr. Bansal. No intervention needed.) --Foot X ray:No acute fracture or evidence for acute osteomyelitis within the right foot.. Right midfoot soft tissue gas suggestive of a wound. Amputation of the distal phalanx of the right first toe. Linear 6 mm metallic density within the plantar aspect of the right first toe. This favors a small foreign body. 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 Continue IV antibiotics--plan to complete 10-day course Acute on chronic diastolic heart failure--POA H/O Ischemic cardiomyopathy S/P AICD placement Hold torsemide Hold Entresto, Aldactone, Jardiance given low BP Continue metoprolol succinate 50 mg twice daily Continue IV Lasix 60 mg twice daily>> changed to Bumex 1 g 3 times daily Appreciate cardiology input Monitor volume status, I's and O's, daily weight, renal function Fluid restriction Diuresis performed despite IV Bumex, will likely need to be transition to Lasix drip (2) Cellulitis of right leg: Plan: As above (3) 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: Plan: HbA1c 7.3 Continue insulin while hospitalized Monitor BGs Glycemic pharmacist consulted (4) Morbid obesity: Plan: BMI 55 (5) CKD (chronic kidney disease) stage 3, GFR 30-59 ml/min: Plan: Renal function at baseline Monitor (6) NINA on CPAP: Plan: Continue with the CPAP and/or BiPAP as at home (7) Ischemic cardiomyopathy: Plan: H/O Ischemic cardiomyopathy S/P AICD placement Management as above (8) Cardiac defibrillator in situ: Plan: H/O ventricular tachycardia S/P ablation, AICD Continue beta-noy (9) Hypertension: (10) Atrial fibrillation: Plan: Supratherapeutic INR on presentation Monitor INR:2.1 today Continue Coumadin--adjust dose as needed (11) Chronic diastolic heart failure: Plan: Management as above (12) History of amputation of left foot: Plan: Complains to have swelling of the stamp on the right side Continue diuretics as above (13) Adjustment disorder with mixed disturbance of emotions and conduct: Plan: Continue antidepressant DVT Px: Coumadin CODE STATUS Full code Admission and Anticipated Discharge Date Admission Date: May 18, 2023 Subjective Patient is seen and examined at bedside Offers no new complaints Refused leg MRI Diuresis poor despite IV Bumex Lower extremity pain resolved Denies any chest pain, dyspnea, dizziness, nausea, vomiting, abdominal pain Review of Systems Review of Systems: All systems reviewed & are unremarkable except as noted in Subjective Physical Exam Physical Exam: Physical Exam: Vitals signs as noted above General Appearance:Morbidly Obese, no apparent distress, ill appearing Head: normocephalic, Atraumatic Eyes: normal inspection, EOMI Neck: supple, Trachea midline Respiratory/Chest: Decreased breath sounds, basal crackles, No accessory muscle use Cardiovascular: S1, S2, No murmur Abdomen/GI:Soft, Non tender, Bowel sounds present Extremities/Musculoskeletal:normal inspection, B/L LE edema, erythema, left below-knee amputation, right lower extremity ulceration on the sole Neurologic/Psych:AAOX3, grossly no focal neurological deficits Skin: normal color, warm Results & Data Results & Data Vital Signs (Past 12 Hours) Vital Signs Temp Pulse Pulse Resp BP BP Pulse Ox 05/25/23 15:11 36.5 C 85 18 152/69 H 93 05/25/23 12:00 36.5 C 96 H 18 105/68 96 05/25/23 08:00 88 05/25/23 08:00 05/25/23 07:13 36.0 C L 89 16 123/79 95 05/25/23 04:04 36.9 C 91 H 20 135/70 91 O2 Del Method 05/25/23 15:11 Room Air 05/25/23 12:00 Room Air 05/25/23 08:00 01/29/24 08:00 Room Air 05/25/23 07:13 Room Air 05/25/23 04:04 Room Air Laboratory Results Short CBC 05/24/23 Range/Units 19:40 Hgb 13.9 L (14.0-18.0) g/dl Hct 44.6 (42.0-52.0) % BMP 05/24/23 05/25/23 19:40 06:29 Sodium 136 136 Potassium 4.1 3.9 Chloride 100 99 Carbon Dioxide 28 29 BUN 31 H 29 H Creatinine 1.59 H 1.34 Glucose 111 H 235 H Calcium 9.0 9.6 (5) CKD (chronic kidney disease) stage 3, GFR 30-59 ml/min Chronic kidney disease stage 3 subtype: stage 3a (GFR 45-59) Qualified Code(s): N18.31 - Chronic kidney disease, stage 3a (9) Hypertension Hypertension type: primary hypertension Qualified Code(s): I10 - Essential (primary) hypertension (10) Atrial fibrillation Atrial fibrillation type: paroxysmal Qualified Code(s): I48.0 - Paroxysmal atrial fibrillation
[2023-05-25] MEDS: BUMETANIDE 2 MG in SYRINGE 0 ML IV SCH (21:33)
--- NOTE | 2023-05-26 02:15 | Communication Note ---
Date of Service: May 26, 2023
[2023-05-26] MEDS: ACETAMINOPHEN 1,000 MG/100 ML VIAL IV STA (02:33)
[2023-05-26] MEDS: HYDROmorphone INJ 0.5 MG/0.5 ML SYR IV PRN (05:00)
--- NOTE | 2023-05-26 06:49 | CT Scan Report ---
Exam(s): CT ABDOMEN + PELVIS Without Contrast EXAM: CT Abdomen and Pelvis Without Intravenous Contrast CLINICAL HISTORY: Reason for exam: pain, coumadin. TECHNIQUE: Axial computed tomography images of the abdomen and pelvis without intravenous contrast. CTDI is 36.67 mGy and DLP is 1899.03 mGy-cm. Automated exposure control was utilized for the study. A dose lowering technique was utilized adhering to the principles of ALARA. COMPARISON: No relevant prior studies available. FINDINGS: Lung bases: Unremarkable. No mass. No consolidation. ABDOMEN: Liver: Unremarkable. Gallbladder and bile ducts: Dependent high density in the gallbladder suggestive of cholelithiasis. No ductal dilation. Pancreas: Unremarkable. No ductal dilation. Spleen: Unremarkable. No splenomegaly. Adrenals: Unremarkable. No mass. Kidneys and ureters: Unremarkable. No obstructing stones. No hydronephrosis. Stomach and bowel: Moderate amount of fecal matter is seen in the right and transverse colonic lumen. No obstruction. No mucosal thickening. PELVIS: Appendix: No findings to suggest acute appendicitis. Bladder: Unremarkable. No stones. Reproductive: Unremarkable as visualized. ABDOMEN and PELVIS: Intraperitoneal space: Unremarkable. No free air. No significant fluid collection. Bones/joints: No acute fracture. No dislocation. Soft tissues: Ductus deferens calcifications suggestive of diabetes. Vasculature: Unremarkable. No abdominal aortic aneurysm. Lymph nodes: Unremarkable. No enlarged lymph nodes. IMPRESSION: 1. No evidence of intra-abdominal hematoma. 2. Moderate amount of fecal matter in the colonic lumen can be correlated with history of constipation Electronically signed by: Edmond Umana MD 05/26/23 06:48 AM
[2023-05-26 07:39] LABS: BUN Creatinine Ratio 19.6 (10-20); Calcium 9.7 mg/dl (8.6-10.3); Creatinine Clr Calc Pharmacy 94.7 ml/min; Est GFR (African American) 61.7 ml/min; Est GFR (Non-African American) 53.2 ml/min; Potassium 3.8 mmol/L (3.5-5.1)
[2023-05-26 07:47] LABS: INR 2.4 (0.9-1.1); Prothrombin Time 25.3 Seconds (9.0-12.0)
[2023-05-26] MEDS: LACTULOSE SYRUP 30 GM/45 ML UDP PO STA (08:23)
[2023-05-26] MEDS: METHYLNALTREXONE BROMIDE 12 MG/0.6 ML VIAL SQ STA (08:23)
[2023-05-26] MEDS: DOCUSATE SODIUM/SENNA 50/8.6MG TAB PO SCH (08:24)
--- NOTE | 2023-05-26 08:53 | Cardiology Progress Note ---
Date of Service May 26, 2023 Assessment & Plan (1) Acute on chronic combined systolic and diastolic CHF (congestive heart failure): (2) Persistent atrial fibrillation: (3) History of ventricular tachycardia: (4) S/P ICD (internal cardiac defibrillator) procedure: (5) Cellulitis of right leg: Plan IMPRESSION: Medically complex 57-year-old male with past medical history of ischemic cardiomyopathy. LVEF 35 to 39%, 05/2022. Admitted due to right lower extremity cellulitis. Volume status proved difficult to control on home medication regimen and cardiology was consulted. PLAN: HFrEF: -Urinary output has improved significantly with - 3 L fluid balance. No weights for review. Strict I&O. daily weights. 2g sodium diet. Pt continues with Molina catheter, urine has alejandra appearance, improved from yesterday patient's bumex was increased to 2 mg IV TID; and renal function is stable. Cr 1.43, will discuss with Dr. Nazario about continuing TID Bumex dosing today since renal function is holding, reassess in the morning. Persistent AFIB: Has been in AF since 09/03/22 per ICD data. Continue metoprolol succinate 50 mg BID INR 2.4 today. Continue anticoagulation with Coumadin, INR of 23 Hx of VT s/p AICD: History of ventricular tachycardia status post ablation and implantation of AICD. No VT seen on telemetry this admission Plan as above. Right leg cellulitis: No evidence of osteomyelitis per x-ray. Antibiotics per primary service. Case has been discussed with Dr. Nazario. Further recommendations regarding plan of care as per his assessment. I spent a total of 30 minutes on the date of service in preparation, delivery, documentation of the care provided to the patient excluding any time spent in the performance of separately billed services. MARCUS Morse [facility] Admission and Anticipated Discharge Date Admission Date: May 18, 2023 Supervising Physician Co-Signing Physician Notes Attending attestation: I have reviewed the advanced practitioner's documentation, and agree with, and take responsibility for the plan of care. Subjective: Patient resting comfortably at the time my assessment. Telemetry reveals rate controlled atrial fibrillation. Exam: Cardiovascular: Irregular rhythm, no murmurs Extremities: 4+ right lower extremity edema, erythema, foot wound at sole of foot Impression/ Plan: Cellulitis Right diabetic foot wound History of left BKA Ischemic cardiomyopathy, chronic heart failure reduced ejection fraction * Edema felt to be multifactorial due to CHF and chronic venous insufficiency * Continue Bumex 2 mg IV 3 times daily * Add metolazone 2.5 mg daily in the morning on 05/27/2023 * Continue metoprolol succinate 50 mg 3 times daily. * Jardiance, Entresto, spironolactone on hold. * Molina catheter remains in place. I spent a total of 20 minutes coordinating, documenting, and providing care for this patient excluding time spent in the performance of separately billed services or time spent by another provider. Andres Nazario DO Subjective 05/26/23: patient seen and examined in follow up. He is out of bed to chair and states that he is "miserable". Denies chest pain, pressure or palpitations. Denies lower extremity pain. He is currently complaining of being uncomfortable out in the chair with wrinkled blankets under him, and just being thirsty. Offered him his water cup. Review of I&Os demonstrates a negative fluid balance. -3090ml. No weights for review. Renal function continues to improve. Review of telemetry overnight shows A-fib in the 90's with no acute events overnight. Reviewed notes, diagnostics, vitals and labs. Review of Systems Review of Systems: All systems reviewed & are unremarkable except as noted in HPI & below Physical Exam Constitutional: + ill appearing, + obese and + edematous Neck: normal visual inspection and trachea midline Respiratory: normal respiratory effort, lungs clear to auscultation Cardiovascular: Rate/Rhythm: + irregularly irregular Heart Sounds: normal S1 and normal S2 Vessels: no JVD Extremities: + pedal edema and + edema Skin: + erythema (Right lower extremity ) Psychiatric: Orientation: alert and oriented x 3 Eye Contact: good eye contact Affect: + depressed affect Mood: + depressed mood Thought Process: goal directed thought process Results & Data Vital Signs (Past 12 Hours) Vital Signs Temp Pulse Resp BP Pulse Ox O2 Del Method 05/26/23 07:14 36.4 C L 97 H 20 127/87 95 Room Air 05/26/23 03:02 36.5 C 88 18 152/85 H 94 Room Air 05/25/23 23:04 36.9 C 108 H 18 151/84 H 92 Room Air 05/25/23 21:50 Room Air Laboratory Results Coagulation 05/26/23 Range/Units 06:49 PT 25.3 H (9.0-12.0) Seconds Comprehensive Metabolic Panel 05/26/23 Range/Units 06:49 Sodium 138 (136-145) mmol/L Potassium 3.8 (3.5-5.1) mmol/L Chloride 100 (98-107) mmol/L Carbon Dioxide 29 (21-32) mmol/L BUN 28 H (6-23) mg/dl Creatinine 1.43 H (0.6-1.4) mg/dl Glucose 190 H (70-99(Fasting)) mg/dl Calcium 9.7 (8.6-10.3) mg/dl Intake and Output 05/25/23 05/26/23 05/26/23 22:59 06:59 14:59 Intake Total 340 / 1360 100 / 1360 Output Total 1600 / 4450 1450 / 4450 Balance -1260 / -3090 -1350 / -3090 Intake: IV 100 / 300 100 / 300 Acetaminophen 1,000 mg In 100 100 / 100 ml @ 400 mls/hr IV NOW STA Rx#: [id number] Piperacillin/Tazobactam 4.5 gm 100 / 200 In Dextrose 5% Mini-B 100 ml @ 25 mls/hr IV Q8H [facility] Rx#: [id number] Oral 240 / 1060 Output: Urine Amount (Catheter) 1600 / 4450 1450 / 4450 Molina/Indwelling 1600 / 4450 1450 / 4450
[2023-05-26] MEDS ORDERED: DOCUSATE SODIUM/SENNA 50/8.6MG TAB PO SCH (09:00)
[2023-05-26] MEDS ORDERED: POLYETHYLENE (MIRALAX) 17 GM PACK PO PRN (09:44)
[2023-05-26] MEDS ORDERED: bisacodyL 5 MG TABEC PO PRN (10:33)
[2023-05-26] MEDS: POLYETHYLENE (MIRALAX) 17 GM PACK PO SCH (12:10)
--- NOTE | 2023-05-26 15:02 | CT Scan Report ---
CT femur LT wo con HISTORY: 57 years-old Male Rule out Osteomyelitis chronic pain in the left lower extremity COMPARISON: None TECHNIQUE: Multiple axial CT images of the left femur were obtained without the use of IV contrast. A dose lowering technique was used consistent with the principals of TOÑO. FINDINGS: The imaged intrapelvic structures are unremarkable. Decompressed bladder with Molina catheter in place . Likely reactive 3.0 x 1 0.6 mL left inguinal chain node on image 40 series 2. Below the knee amputation. Arterial calcifications. Moderate to marked atrophy of the left lower leg musculature. Subcutaneous edema with skin thickening is noted within the bilateral thighs, right grea ter than left. Soft tissue calcifications are noted with subcutaneous hemorrhage within the left ampu tation stump with focal areas of hemorrhage measuring up to 7.1 x 1.4 cm on image 151. There are appa rent soft tissue ulcerations of the amputation stump. Osteoarthritis of the hips and left knee. No ac [place] fracture, dislocation or acute osseous erosion identified. Cortical thickening of the distal tibi a and fibula at the amputation site. IMPRESSION: 1. Prior below the knee amputation with cortical thickening of the distal tibia and fibula likely exp ected postoperative changes. Sequela of chronic osteoarthritis considered less likely. 2. No acute fracture, dislocation or acute osseous erosion identified by CT. 3. Nonspecific subcutaneous edema with skin thickening of the lower extremities. Differential conside rations include cellulitis, lymphedema or venous stasis. 4. Areas of subcutaneous hemorrhage are noted within the amputation stump. ACT 112: Negative or not required by law. The above report was generated using voice recognition software. It may contain grammatical, syntax o r spelling errors. Electronically signed by: Carlos Johnson M.D. 05/26/2023 3:01 PM
--- NOTE | 2023-05-26 15:02 | CT Scan Report ---
CT tib/fib RT wo con HISTORY: 57 years-old Male Rule out Osteomyelitis Chronic pain of the right lower leg with clinical concern for osteomyelitis. Prior left [id number] amputation. COMPARISON: Radiographs 12/02/2022. TECHNIQUE: Multiple axial CT images of the right tibia and fibula were obtained without the use of IV contrast. A dose lowering technique was used consistent with the principals of TOÑO. FINDINGS: Arterial calcifications. Extensive diffuse subcutaneous edema with moderate skin thickening redemonst rated. Arterial calcifications. Moderate atrophy of the musculature suggestive of chronic denervation change. No fluid collections or opaque foreign bodies identified. There are a few apparent cutaneous ulcerations noted along the lower leg with subcutaneous calcifications. Tendons and ligaments are not well evaluated by CT technique. Spurring of the calcaneus with osteoart hritis of the knee and ankle. No acute fracture, dislocation or osseous erosion. IMPRESSION: 1. No acute osseous abnormality. 2. Subcutaneous edema with skin thickening. Differential considerations include cellulitis, venous st asis versus lymphedema. No drainable fluid collection. 3. Atherosclerosis. ACT 112: Negative or not required by law. The above report was generated using voice recognition software. It may contain grammatical, syntax o r spelling errors. Dictated: 05/26/2023 2:02 PM Transcribed: 05/26/2023 2:33 PM Tita [id number] Yamileth [id number] Electronically signed by: Carlos Johnson M.D. 05/26/2023 3:01 PM
--- NOTE | 2023-05-26 15:33 | CT Scan Report ---
CT SCAN OF THE RIGHT FOOT WITHOUT IV CONTRAST CLINICAL HISTORY: Right foot infection. COMPARISON STUDY: Radiographs of the right foot dated 05/18/2023. TECHNIQUE: CT scan of the right foot is performed from the A dose lowering technique was utilized adh ering to the principles of ALARA. FINDINGS: The skeletal structures appear osteopenic. No acute fracture is seen. There has been amputa tion of the first toe through the head of the first proximal phalanx. No erosive change is identified to suggest osteomyelitis. Moderate arthritic change is seen throughout the midfoot. There are dorsal and plantar heel spurs. Degenerative spurring is seen along the dorsal aspect of the tarsal bones. D iffuse subcutaneous soft tissue edema and fluid is seen throughout the foot and around the ankle. A w ound is suggested along the plantar aspect of the midfoot laterally, best seen on coronal image #35 a nd axial image #153. No organized fluid collection is seen to suggest abscess. Advanced atherosclerot ic calcification is seen in the regional arteries. The regional musculature is atrophic. A tiny curvi linear metallic foreign body is present in the plantar soft tissues of the first toe as seen on image #230. IMPRESSION: 1. No acute bony abnormality is identified. 2. Postsurgical and degenerative change as above. 3. There is diffuse subcutaneous soft tissue edema and fluid throughout the foot. Correlate clinicall y for evidence of cellulitis. 4. No organized fluid collection is seen to suggest abscess. 5. An ulceration/wound as suggested on the plantar aspect of the lateral midfoot. Correlate clinicall y. 6. A curvilinear metallic foreign body is noted in the plantar soft tissues of the first toe. ACT 112: Negative or not required by law. Dictated: 05/26/2023 2:13 PM Transcribed: 05/26/2023 2:32 PM Crispin [id number] [email or web address] Electronically signed by: Lukas Trivedi M.D. 05/26/2023 3:32 PM
--- NOTE | 2023-05-26 16:30 | Hospitalist Progress Note ---
Date of Service May 26, 2023 Assessment & Plan (1) Leg wound, right: Plan: Right diabetic foot cellulitis/leg wound--POA Peripheral vascular disease H/O Chronic leg wounds with H/O Osteomyelitis Right first toe foreign body--incidental finding on x-ray (discussed with Dr. Bansal on 05/21/2023. Also noted on prior images per Dr. Bansal. No intervention needed.) --Foot X ray:No acute fracture or evidence for acute osteomyelitis within the right foot.. Right midfoot soft tissue gas suggestive of a wound. Amputation of the distal phalanx of the right first toe. Linear 6 mm metallic density within the plantar aspect of the right first toe. This favors a small foreign body. -- Blood cultures negative -- Wound culture positive for Proteus, Enterococcus faecalis, Myroides species -- MRSA screen negative --on IV Zosyn--completed 8 days of antibiotic course. No surgical intervention recommended by podiatry Appreciate podiatry input [employer] ID on board: Superficial wound cultures likely unreliable. Can complete 10-day course of antibiotics. 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 as outpatient CT of bilateral lower extremities not suggestive of osteomyelitis Started on Augmentin to complete the antibiotic course Acute on chronic diastolic heart failure--POA H/O Ischemic cardiomyopathy S/P AICD placement Hold torsemide Hold Entresto, Aldactone, Jardiance given low BP Continue metoprolol succinate 50 mg twice daily Continue IV Lasix 60 mg twice daily>> changed to Bumex 1 g 3 times daily Appreciate cardiology input Monitor I's and O's, daily weight, renal function Fluid restriction Continue IV Bumex Monitor volume status Needs follow-up with cardiology on discharge (2) Cellulitis of right leg: Plan: As above (3) 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: Plan: HbA1c 7.3 Continue insulin while hospitalized Monitor BGs Glycemic pharmacist consulted (4) Morbid obesity: Plan: BMI 55 (5) CKD (chronic kidney disease) stage 3, GFR 30-59 ml/min: Plan: Renal function at baseline Monitor (6) NINA on CPAP: Plan: Continue with the CPAP and/or BiPAP as at home (7) Ischemic cardiomyopathy: Plan: H/O Ischemic cardiomyopathy S/P AICD placement Management as above (8) Cardiac defibrillator in situ: Plan: H/O ventricular tachycardia S/P ablation, AICD Continue beta-noy (9) Hypertension: (10) Atrial fibrillation: Plan: Supratherapeutic INR on presentation Monitor INR:2.4 today Continue Coumadin--adjust dose as needed (11) Chronic diastolic heart failure: Plan: Management as above (12) History of amputation of left foot: Plan: Complains to have swelling of the stamp on the right side Continue diuretics as above (13) Adjustment disorder with mixed disturbance of emotions and conduct: Plan: Continue antidepressant DVT Px: Coumadin CODE STATUS Full code Admission and Anticipated Discharge Date Admission Date: May 18, 2023 Subjective Patient is seen and examined at bedside Reports constipation Also states having some right lower quadrant abdominal discomfort Offers no other complaints Denies any chest pain, dyspnea, dizziness, nausea, vomiting, abdominal pain Review of Systems Review of Systems: All systems reviewed & are unremarkable except as noted in Subjective Physical Exam Physical Exam: Physical Exam: Vitals signs as noted above General Appearance:Morbidly Obese, no apparent distress, ill appearing Head: normocephalic, Atraumatic Eyes: normal inspection, EOMI Neck: supple, Trachea midline Respiratory/Chest: Decreased breath sounds, basal crackles, No accessory muscle use Cardiovascular: S1, S2, No murmur Abdomen/GI:Soft, Non tender, Bowel sounds present Extremities/Musculoskeletal:normal inspection, B/L LE edema, erythema, left below-knee amputation, right lower extremity ulceration on the sole Neurologic/Psych:AAOX3, grossly no focal neurological deficits Skin: normal color, warm Results & Data Results & Data Vital Signs (Past 12 Hours) Vital Signs Temp Pulse Pulse Resp BP BP Pulse Ox 05/26/23 15:55 36.4 C L 92 H 20 118/73 95 05/26/23 14:56 85 05/26/23 11:47 36.6 C 67 18 120/77 95 05/26/23 10:04 05/26/23 07:16 85 05/26/23 07:14 36.4 C L 97 H 20 127/87 95 O2 Del Method 05/26/23 15:55 Room Air 05/26/23 14:56 05/26/23 11:47 Room Air 05/26/23 10:04 Room Air 05/26/23 07:16 05/26/23 07:14 Room Air Laboratory Results [facility] 05/26/23 06:49 Sodium 138 Potassium 3.8 Chloride 100 Carbon Dioxide 29 BUN 28 H Creatinine 1.43 H Glucose 190 H Calcium 9.7 (5) CKD (chronic kidney disease) stage 3, GFR 30-59 ml/min Chronic kidney disease stage 3 subtype: stage 3a (GFR 45-59) Qualified Code(s): N18.31 - Chronic kidney disease, stage 3a (9) Hypertension Hypertension type: primary hypertension Qualified Code(s): I10 - Essential (primary) hypertension (10) Atrial fibrillation Atrial fibrillation type: paroxysmal Qualified Code(s): I48.0 - Paroxysmal atrial fibrillation
[2023-05-26] MEDS: AMOXICILLIN/CLAVULANATE 875 MG TAB PO SCH (17:23)
[2023-05-26] MEDS: ACETAMINOPHEN 325 MG TAB PO PRN (21:06)
[2023-05-27 01:37] LABS: Appearance Urine Clear (Clear); Bacteria Urine Automated Negative (Negative); Bilirubin Urine Negative (Negative); Blood Urine 3+ (Negative); Color Urine Yellow; Glucose Urine UA 2+ (Negative); Ketones Urine Negative (Negative); Leukocyte Esterase Urine Trace (Negative); Nitrite Urine Negative (Negative); Protein Urine 1+ (Negative); RBC Urine Automated >30 /hpf (0-4); Specific Gravity Urine 1.013 (1.000-1.030); Urobilinogen Urine Negative (Negative); pH Urine 6.5 (4.5-7.5)
[2023-05-27 07:36] LABS: Calcium 9.6 mg/dl (8.6-10.3); Creatinine Clr Calc Pharmacy 95.4 ml/min; Est GFR (African American) 62.2 ml/min; Est GFR (Non-African American) 53.7 ml/min; Potassium 3.9 mmol/L (3.5-5.1)
[2023-05-27 07:48] LABS: INR 2.7 (0.9-1.1); Prothrombin Time 27.6 Seconds (9.0-12.0)
[2023-05-27] MEDS: LANTUS PER UNIT CHARGE SC SCH (08:19)
[2023-05-27] MEDS: metOLazone 2.5 MG TABLET PO SCH (08:20)
--- NOTE | 2023-05-27 08:52 | Cardiology Progress Note ---
Date of Service May 27, 2023 Assessment & Plan (1) Acute on chronic combined systolic and diastolic CHF (congestive heart failure): (2) Persistent atrial fibrillation: (3) History of ventricular tachycardia: (4) S/P ICD (internal cardiac defibrillator) procedure: (5) Cellulitis of right leg: Plan IMPRESSION: Medically complex 57-year-old male with past medical history of ischemic cardiomyopathy. LVEF 35 to 39%, 05/2022. Admitted due to right lower extremity cellulitis. Volume status proved difficult to control on home medication regimen and cardiology was consulted. PLAN: HFrEF: -Urinary output has improved significantly with - 2.5 L fluid deficit today. No weights for review. Strict I&O. daily weights. 2g sodium diet. Pt continues with Molina catheter, urine color continues to improve. patient's Bumex was increased to 2 mg IV TID; and renal function is stable. Cr 1.42, will discuss with Dr. Nazario about continuing TID Bumex dosing today since renal function is holding, reassess in the morning. Persistent AFIB: Has been in AF since 09/03/22 per ICD data. Continue metoprolol succinate 50 mg BID INR 2.4 today. Continue anticoagulation with Coumadin, INR of 23 Hx of VT s/p AICD: History of ventricular tachycardia status post ablation and implantation of AICD. No VT seen on telemetry this admission Plan as above. Right leg cellulitis: No evidence of osteomyelitis per x-ray. Antibiotics per primary service. Case has been discussed with Dr. Nazario. Further recommendations regarding plan of care as per his assessment. I spent a total of 30 minutes on the date of service in preparation, delivery, documentation of the care provided to the patient excluding any time spent in the performance of separately billed services. MARCUS Morse [facility] Cardiology [facility] Admission and Anticipated Discharge Date Admission Date: May 18, 2023 Supervising Physician Co-Signing Physician Notes Attending attestation: I have reviewed the advanced practitioner's documentation, and agree with, and take responsibility for the plan of care. Subjective: Patient describes frustration. He notes his urinary catheter is uncomfortable, and he is eager to go home however he is aware that he has ongoing edema. Exam: Cardiovascular: Irregular rhythm, no murmurs Extremities: 4+ right lower extremity edema, erythema, foot wound at sole of foot Impression/ Plan: Cellulitis Right diabetic foot wound History of left BKA Ischemic cardiomyopathy, chronic heart failure reduced ejection fraction Peripheral neuropathy * Edema felt to be multifactorial due to CHF and chronic venous insufficiency * Increase Bumex to 3 mg IV 3 times per day, continue metolazone 2.5 mg daily in the morning * Continue metoprolol succinate 50 mg 3 times daily. * Jardiance, Entresto, spironolactone on hold. Will consider adding back spironolactone on 05/28/2023 * Molina catheter remains in place. * Patient is on gabapentin 300 mg 3 times daily for chronic neuropathic pain. He describes having been on pregabalin in the past, he is not sure if he has been on duloxetine * Patient agreeable to holding his gabapentin with trial of pregabalin as this agent does not cause fluid retention I spent a total of 20 minutes coordinating, documenting, and providing care for this patient excluding time spent in the performance of separately billed services or time spent by another provider. Andres Nazario DO Subjective 05/27/23: patient seen and examined in follow up. Patient is very tearful and "just wants to get out of the hospital". He offers no cardiac complaints. Complains of back and buttock pain, complains of thirst. Review of telemetry shows A-fib rates 70-90's no acute events overnight. Labs stable No weights available for review. Has a negative fluid balance today of 2492ml Notes, labs, vitals and diagnostics reviewed. Review of Systems Review of Systems: All systems reviewed & are unremarkable except as noted in HPI & below Physical Exam Constitutional: + ill appearing, + obese and + edematous Neck: normal visual inspection and trachea midline Respiratory: normal respiratory effort, lungs clear to auscultation Cardiovascular: Rate/Rhythm: + irregularly irregular Heart Sounds: normal S1 and normal S2 Vessels: no JVD Extremities: + pedal edema and + edema Skin: + erythema (Right lower extremity ) Psychiatric: Orientation: alert and oriented x 3 Eye Contact: good eye contact Affect: + depressed affect and + tearful affect Mood: + depressed mood Thought Process: goal directed thought process Results & Data Vital Signs (Past 12 Hours) Vital Signs Temp Pulse Pulse Resp BP Pulse Ox O2 Del Method 05/27/23 08:11 36.3 C L 82 20 146/84 H 95 Room Air 05/27/23 03:00 36.9 C 84 20 118/75 96 Room Air 05/26/23 23:57 90 05/26/23 22:20 36.7 C 86 18 126/74 96 Room Air 05/26/23 22:08 91 H 119/75 05/26/23 21:12 78 107/60 05/26/23 21:00 Room Air Laboratory Results Coagulation 05/27/23 Range/Units 07:01 PT 27.6 H (9.0-12.0) Seconds Comprehensive Metabolic Panel 05/27/23 Range/Units 07:01 Sodium 138 (136-145) mmol/L Potassium 3.9 (3.5-5.1) mmol/L Chloride 99 (98-107) mmol/L Carbon Dioxide 34 H (21-32) mmol/L BUN 27 H (6-23) mg/dl Creatinine 1.42 H (0.6-1.4) mg/dl Glucose 99 (70-99(Fasting)) mg/dl Calcium 9.6 (8.6-10.3) mg/dl Intake and Output 05/26/23 05/27/23 05/27/23 22:59 06:59 14:59 Intake Total 240 / 1510 480 / 1510 Output Total 1501 / 4002 751 / 4002 Balance -1261 / -2492 -271 / -2492 Intake: Oral 240 / 1510 480 / 1510 Output: Urine Amount (Catheter) 1500 / 4000 750 / 4000 Molina/Indwelling 1500 / 4000 750 / 4000 # Bowel Movements 1 / 2 1 / 2
[2023-05-27] MEDS: MoRPHine SULFATE 2 MG/ML CARP IV PRN (11:01)
--- NOTE | 2023-05-27 13:29 | Pharmacy Report ---
Pharmacy Glycemic Short Note 2 - Date of Service May 27, 2023 - Glycemic Short BSG Results (Last 24 hours): 05/26/23 05/26/23 05/27/23 16:18 20:02 07:01 Glucose 99 POC Glucose 153 H 107 H 05/27/23 05/27/23 07:26 11:21 Glucose POC Glucose 94 182 H OUTPATIENT ANTIDIABETIC REGIMEN: * Novolog insulin pump * Basal rate: 2 units/hr (48 units/day) * ICR: 3, CF: 30 * TDD: ~71 units/day * Empagliflozin 25 mg PO daily * HbA1c: 7.3% (05/20/23) ASSESSMENT: 05/27: * Ben received 134 units of insulin yesterday (60 were basal) * Fasting BSG below goal range this AM, will decrease basal slightly by ~10% * He was started on Augmentin to finish his antibiotic course. * Slight Novolog adjustments due to some elevated BSGs 05/25: * Fasting BSG continues to be an issue, elevated at 232 mg/dL this AM. Confirmed that no snacking or breakfast was consumed prior to accucheck. More likely that insufficient basal dose has led to this elevation although cannot rule out rebound hyperglycemia from overnight lows. Patient is requiring significantly more insulin inpatient than outpatient. * Basal dose will be increased for a fourth consecutive day. Once fasting BSG starts to trend down, may need to back off basal dose. * Novolog was tightened on Thursday. Trend downward to below goal range throughout the evening last night. Given continued increase in basal dosing, will back off on carb ratio today. 05/24: * Fasting BSG has been trending up over past several days, 184 mg/dL this morning. Basal insulin increased yesterday and again today. * Novolog tightened yesterday due to intermittent hyperglycemia - will continue these tightened parameters today * Imaging planned for tomorrow morning. Remains on Zosyn. 05/22: * Patient received total of 100 units of insulin yesterday, of which 35 units w ere basal insulin * Fasting BSG >160 mg/dL - will titrate up basal about ~15% this morning and increase to 40 units * BSGs yesterday still above goal range, will tighten CF 05/21: * Patient hyperglycemic yesterday, BSGs ranging 121-288 mg/dL * Received 79 units of insulin yesterday (35 units of basal and 44 units of prandial/correctional bolus) * Fasting BSG of 119 mg/dL this morning - plan to continue current basal dose * Will tighten carb ratio today due to hyperglycemia yesterday 05/19: * Mr. Lyle is admitted with right leg wound, patient was to continue home insulin pump while inpatient. Discussed with RN this is reportedly disconnected and he has not been using it, ? when he disconnected. BSGs on lab yesterday 104 mg/dl, Fasting 95 mg/dL this morning. BSG reported to be ~140 at time of consult. To obtain new BSG. * 155 units/day of basal per most recent Endo note. Patient typically requires less while in hospital. Given uncertain amount of time since pump disconnected and normal BSGs will start conservatively with basal/bolus insulin. * Adjusted weight based stress of 2 carb ratio + home correction factor. Will give 25 units x 1 of lantus with additional later today should BSGs trend upward PLAN FOR INPATIENT GLYCEMIC CONTROL: * Continue home empagliflozin 25 mg PO daily * Has been on hold since 05/23/23 * Basal insulin * Lantus 60 units SC daily * Bolus insulin * NovoLog per scale ACHS or Q6hrs while NPO * Goal Range: Low 110 mg/dL - High 140 mg/dL * Correction Factor: 15 mg/dL/unit * Nutritional / Prandial insulin per carb ratio of 1 unit per 3 grams CHO consumed
[2023-05-27] MEDS: WARFARIN SOD 1 MG TAB PO SCH (15:27)
--- NOTE | 2023-05-27 15:51 | Hospitalist Progress Note ---
Date of Service May 27, 2023 Assessment & Plan (1) Leg wound, right: Plan: Right diabetic foot cellulitis/leg wound--POA Peripheral vascular disease H/O Chronic leg wounds with H/O Osteomyelitis Right first toe foreign body--incidental finding on x-ray (discussed with Dr. Bansal on 05/21/2023. Also noted on prior images per Dr. Bansal. No intervention needed.) --Foot X ray:No acute fracture or evidence for acute osteomyelitis within the right foot.. Right midfoot soft tissue gas suggestive of a wound. Amputation of the distal phalanx of the right first toe. Linear 6 mm metallic density within the plantar aspect of the right first toe. This favors a small foreign body. -- Blood cultures negative -- Wound culture positive for Proteus, Enterococcus faecalis, Myroides species -- MRSA screen negative --on IV Zosyn--completed 8 days of antibiotic course. No surgical intervention recommended by podiatry Appreciate podiatry input [employer] [facility] boots ID on board: Superficial wound cultures likely unreliable. Can complete 10-day course of antibiotics. Continue wound care Will need follow-up with wound care on discharge Patient refused to obtain MRI to rule out osteo:" I do not believe my bones are infected" Patient prefers to follow-up with his primary nuclear unit operator as outpatient CT of bilateral lower extremities not suggestive of osteomyelitis Started on Augmentin to complete the antibiotic course Continue current management Acute on chronic diastolic heart failure--POA H/O Ischemic cardiomyopathy S/P AICD placement Hold torsemide Hold Entresto, Aldactone, Jardiance given low BP Continue metoprolol succinate 50 mg twice daily Continue IV Lasix 60 mg twice daily>> changed to Bumex 1 g 3 times daily Appreciate cardiology input Monitor I's and O's, daily weight, renal function Fluid restriction Monitor volume status Needs follow-up with cardiology on discharge Continue IV diuresis (2) Cellulitis of right leg: Plan: As above (3) 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: Plan: HbA1c 7.3 Continue insulin while hospitalized Monitor BGs Glycemic pharmacist consulted (4) Morbid obesity: Plan: BMI 55 (5) CKD (chronic kidney disease) stage 3, GFR 30-59 ml/min: Plan: Renal function at baseline Monitor (6) NINA on CPAP: Plan: Continue with the CPAP and/or BiPAP as at home (7) Ischemic cardiomyopathy: Plan: H/O Ischemic cardiomyopathy S/P AICD placement Management as above (8) Cardiac defibrillator in situ: Plan: H/O ventricular tachycardia S/P ablation, AICD Continue beta-noy (9) Hypertension: (10) Atrial fibrillation: Plan: Supratherapeutic INR on presentation Monitor INR:2.7 today Decrease Coumadin dose today is likely interacting with Augmentin (11) Chronic diastolic heart failure: Plan: Management as above (12) History of amputation of left foot: Plan: Complains to have swelling of the stamp on the right side Continue diuretics as above (13) Adjustment disorder with mixed disturbance of emotions and conduct: Plan: Continue antidepressant DVT Px: Coumadin CODE STATUS Full code Admission and Anticipated Discharge Date Admission Date: May 18, 2023 Subjective Patient is seen and examined at bedside Patient upset due to prolonged need for hospitalization Reports chronic back pain and neck pain Had bowel movement today No other complaints Denies any chest pain, dyspnea, dizziness, nausea, vomiting, abdominal pain Review of Systems Review of Systems: All systems reviewed & are unremarkable except as noted in Subjective Physical Exam Physical Exam: Physical Exam: Vitals signs as noted above General Appearance:Morbidly Obese, no apparent distress, ill appearing Head: normocephalic, Atraumatic Eyes: normal inspection, EOMI Neck: supple, Trachea midline Respiratory/Chest: Decreased breath sounds, basal crackles, No accessory muscle use Cardiovascular: S1, S2, No murmur Abdomen/GI:Soft, Non tender, Bowel sounds present Extremities/Musculoskeletal:normal inspection, B/L LE edema, erythema, left below-knee amputation, right lower extremity ulceration on the sole Neurologic/Psych:AAOX3, grossly no focal neurological deficits Skin: normal color, warm Results & Data Results & Data Vital Signs (Past 12 Hours) Vital Signs Temp Pulse Pulse Resp BP Pulse Ox O2 Del Method 05/27/23 10:36 Room Air 05/27/23 10:29 36.4 C L 78 21 122/66 95 Room Air 05/27/23 08:11 36.3 C L 82 20 146/84 H 95 Room Air 05/27/23 07:58 85 Laboratory Results BMP 05/27/23 07:01 Sodium 138 Potassium 3.9 Chloride 99 Carbon Dioxide 34 H BUN 27 H Creatinine 1.42 H Glucose 99 Calcium 9.6 Urine 05/27/23 Range/Units 01:20 Urine Color Yellow Urine Appearance Clear (Clear) Urine pH 6.5 (4.5-7.5) Ur Specific [place] 1.013 (1.000-1.030) Urine Protein 1+ H (Negative) Urine Glucose (UA) 2+ H (Negative) (5) CKD (chronic kidney disease) stage 3, GFR 30-59 ml/min Chronic kidney disease stage 3 subtype: stage 3a (GFR 45-59) Qualified Code(s): N18.31 - Chronic kidney disease, stage 3a (9) Hypertension Hypertension type: primary hypertension Qualified Code(s): I10 - Essential (primary) hypertension (10) Atrial fibrillation Atrial fibrillation type: paroxysmal Qualified Code(s): I48.0 - Paroxysmal atrial fibrillation
[2023-05-27] MEDS: BUMETANIDE 3 MG in SYRINGE 0 ML IV SCH (20:17)
[2023-05-28 07:22] LABS: Calcium 9.8 mg/dl (8.6-10.3); Creatinine Clr Calc Pharmacy 81.3 ml/min; Est GFR (African American) 64.4 ml/min; Est GFR (Non-African American) 55.6 ml/min; Potassium 3.4 mmol/L (3.5-5.1)
[2023-05-28 07:43] LABS: INR 2.4 (0.9-1.1); Prothrombin Time 25.2 Seconds (9.0-12.0)
[2023-05-28] MEDS: DULoxetine HCL 20 MG CAP PO SCH (08:14)
[2023-05-28] MEDS: POTASSIUM CHLORIDE CRTAB 20 MEQ TABCR PO STA (09:09)
--- NOTE | 2023-05-28 12:57 | Cardiology Progress Note ---
Date of Service May 28, 2023 Assessment & Plan (1) Acute on chronic combined systolic and diastolic CHF (congestive heart failure): (2) Persistent atrial fibrillation: (3) History of ventricular tachycardia: (4) S/P ICD (internal cardiac defibrillator) procedure: (5) Cellulitis of right leg: Plan IMPRESSION: Medically complex 57-year-old male with past medical history of ischemic cardiomyopathy. LVEF 35 to 39%, 05/2022. Admitted due to right lower extremity cellulitis. Volume status proved difficult to control on home medication regimen and cardiology was consulted. PLAN: HFrEF: -Urinary output has improved significantly with over 2.5 L fluid deficit today. No weights for review. Strict I&O. daily weights. 2g sodium diet. Pt continues with Molina catheter, urine color continues to improve. patient's Bumex was increased to 3 mg IV TID, and Metolazone has been added to his regimen. His renal function is stable. Cr 1.38. Continue to diurese with close monitoring of renal function. Substantial concern for non-compliance at home and would still encourage a short term IP rehab upon discharge if patient is agreeable. Gabapentin was discontinued in favor of starting Cymbalta for pain control and reduced risk of fluid retention. Patient denies having PT/OT, but there is documentation supporting they are involved and working with patient. Persistent AFIB: Has been in AF since 09/03/22 per ICD data. Continue metoprolol succinate 50 mg BID INR 2.4 today. Continue anticoagulation with Coumadin, INR of 23 Hx of VT s/p AICD: History of ventricular tachycardia status post ablation and implantation of AICD. No VT seen on telemetry this admission Plan as above. Right leg cellulitis: No evidence of osteomyelitis per x-ray. Antibiotics per primary service. Case has been discussed with Dr. Nazario. Further recommendations regarding plan of care as per his assessment. I spent a total of 30 minutes on the date of service in preparation, delivery, documentation of the care provided to the patient excluding any time spent in the performance of separately billed services. MARCUS [facility] Cardiology [facility] Admission and Anticipated Discharge Date Admission Date: May 18, 2023 Supervising Physician Co-Signing Physician Notes Attending attestation: I have reviewed the advanced practitioner's documentation, and agree with, and take responsibility for the plan of care. Subjective: Patient describes frustration. Exam: Cardiovascular: Irregular rhythm, no murmurs Extremities: 4+ right lower extremity edema, erythema, foot wound at sole of foot Impression/ Plan: Cellulitis Right diabetic foot wound History of left BKA Ischemic cardiomyopathy, chronic heart failure reduced ejection fraction Peripheral neuropathy * Edema felt to be multifactorial due to CHF and chronic venous insufficiency * Bumex to 3 mg IV 3 times per day, continue metolazone 2.5 mg daily in the morning * change metoprolol succinate back to his prior dose of 75 mg BID. * Jardiance, Entresto on hold * Resume spironolactone at lower dose, 12.5 mg daily * Supplement potassium * Molina catheter remains in place. * Patient is on gabapentin 300 mg 3 times daily for chronic neuropathic pain. He describes having been on pregabalin in the past, he is not sure if he has been on duloxetine * Patient agreeable to holding his gabapentin with trial of duloxetine as this agent does not cause fluid retention * h/o minimal PAD on prior assessment. Perhaps there is a role for venous ablation. Will discuss with endovascular medicine. I spent a total of 20 minutes coordinating, documenting, and providing care for this patient excluding time spent in the performance of separately billed services or time spent by another provider. Andres Nazario DO Subjective 05/27/23: patient seen and examined in follow up. Patient is very tearful and "just wants to get out of the hospital". He offers no cardiac complaints. Complains of back and buttock pain, complains of thirst. He is now becoming resistant to the idea of IP rehab when appropriate for discharge. Review of telemetry shows A-fib rates 70-90's no acute events overnight. Labs stable No weights available for review. Has a negative fluid balance today of 2630 ml Notes, labs, vitals and diagnostics reviewed. Review of Systems Review of Systems: All systems reviewed & are unremarkable except as noted in HPI & below Physical Exam Constitutional: + ill appearing, + obese and + edematous Neck: normal visual inspection and trachea midline Respiratory: normal respiratory effort, lungs clear to auscultation Cardiovascular: Rate/Rhythm: + irregularly irregular Heart Sounds: normal S1 and normal S2 Vessels: no JVD Extremities: + pedal edema and + edema Skin: + erythema (Right lower extremity ) Psychiatric: Orientation: alert and oriented x 3 Eye Contact: good eye contact Affect: + depressed affect and + tearful affect Mood: + depressed mood Thought Process: goal directed thought process Results & Data Vital Signs (Past 12 Hours) Vital Signs Temp Pulse Pulse Resp BP BP Pulse Ox 05/28/23 10:57 36.8 C 73 20 103/65 94 05/28/23 08:00 94 H 05/28/23 08:00 05/28/23 07:26 36.4 C L 90 18 127/75 93 05/28/23 03:47 37.3 C 93 H 20 124/76 93 O2 Del Method 05/28/23 10:57 Room Air 05/28/23 08:00 05/28/23 08:00 Room Air 05/28/23 07:26 Room Air 05/28/23 03:47 Room Air Laboratory Results Coagulation 05/28/23 Range/Units 05:59 PT 25.2 H (9.0-12.0) Seconds Comprehensive Metabolic Panel 05/28/23 Range/Units 05:59 Sodium 137 (136-145) mmol/L Potassium 3.4 L (3.5-5.1) mmol/L Chloride 96 L (98-107) mmol/L Carbon Dioxide 30 (21-32) mmol/L BUN 29 H (6-23) mg/dl Creatinine 1.38 (0.6-1.4) mg/dl Glucose 143 H (70-99(Fasting)) mg/dl Calcium 9.8 (8.6-10.3) mg/dl Intake and Output 05/27/23 05/28/23 05/28/23 22:59 06:59 14:59 Intake Total 600 / 5 65 / 2094 Output Total 3574 700 / 700 Balance -2975 / -3130 205 / -3130 -700 / -700 Intake: Oral 600 / 2095 655 / 2094 Output: Urine Amount (Catheter) 3574 700 / 700 Molina/Indwelling 3574 700 / 700 Other: Weight 132.9 kg Weight Measurement Method Built in [facility]
[2023-05-28] MEDS ORDERED: WARFARIN SOD 2 MG TAB PO SCH (16:00)
[2023-05-28] MEDS: MoRPHine SULFATE 2 MG/ML CARP IV PRN (16:18)
[2023-05-28] MEDS: WARFARIN SOD 3 MG TAB PO SCH (16:19)
--- NOTE | 2023-05-28 16:27 | Hospitalist Progress Note ---
Date of Service May 28, 2023 Assessment & Plan (1) Leg wound, right: Plan: Right diabetic foot cellulitis/leg wound--POA Peripheral vascular disease H/O Chronic leg wounds with H/O Osteomyelitis Right first toe foreign body--incidental finding on x-ray (discussed with Dr. Bansal on 05/21/2023. Also noted on prior images per Dr. Bansal. No intervention needed.) --Foot X ray:No acute fracture or evidence for acute osteomyelitis within the right foot.. Right midfoot soft tissue gas suggestive of a wound. Amputation of the distal phalanx of the right first toe. Linear 6 mm metallic density within the plantar aspect of the right first toe. This favors a small foreign body. -- Blood cultures negative -- Wound culture positive for Proteus, Enterococcus faecalis, Myroides species -- MRSA screen negative --on IV Zosyn--completed 8 days of antibiotic course. No surgical intervention recommended by podiatry Appreciate podiatry input [employer] ID on board: Superficial wound cultures likely unreliable. Can complete 10-day course of antibiotics. Continue wound care Needs follow-up with wound care, podiatry as outpatient Patient refused to obtain MRI to rule out osteo:" I do not believe my bones are infected" CT of bilateral lower extremities not suggestive of osteomyelitis Started on Augmentin to complete the antibiotic course Arterial Doppler study pending May need vascular surgery evaluation Acute on chronic diastolic heart failure--POA H/O Ischemic cardiomyopathy S/P AICD placement Chronic venous stasis Hold torsemide Hold Entresto, Aldactone, Jardiance given low BP Started on metoprolol succinate 75 mg twice daily Continue IV Lasix 60 mg twice daily>> changed to Bumex 3 g 3 times daily Appreciate cardiology input Monitor I's and O's, daily weight, renal function Fluid restriction Monitor volume status Gabapentin held (not of much help for neuropathy per patient) as contributing to edema Needs follow-up with cardiology on discharge Continue IV diuresis per cardiology Added metaxalone 2.5 mg daily Resume Aldactone 12.5 mg daily (2) Cellulitis of right leg: Plan: As above (3) 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: Plan: HbA1c 7.3 Continue insulin while hospitalized Monitor BGs Glycemic pharmacist consulted (4) Morbid obesity: Plan: BMI 55 (5) CKD (chronic kidney disease) stage 3, GFR 30-59 ml/min: Plan: Renal function at baseline Monitor Cr 1.3 today (6) NINA on CPAP: Plan: Continue with the CPAP and/or BiPAP as at home (7) Ischemic cardiomyopathy: Plan: H/O Ischemic cardiomyopathy S/P AICD placement Management as above (8) Cardiac defibrillator in situ: Plan: H/O ventricular tachycardia S/P ablation, AICD Continue beta-noy (9) Hypertension: (10) Atrial fibrillation: Plan: Supratherapeutic INR on presentation Monitor INR:2.4 today Adjust Coumadin dose as needed (11) Chronic diastolic heart failure: Plan: Management as above (12) History of amputation of left foot: Plan: Complains to have swelling of the stamp on the right side Continue diuretics as above (13) Adjustment disorder with mixed disturbance of emotions and conduct: Plan: Started on duloxetine DVT Px: Coumadin CODE STATUS Full code Admission and Anticipated Discharge Date Admission Date: May 18, 2023 Subjective Patient is seen and examined at bedside States having some discomfort due to Molina catheter Also feels upset due to prolonged hospital stay Reports chronic back pain and neck pain which she attributes to inability to ambulate Denies any chest pain, dyspnea, dizziness, nausea, vomiting Discussed with cardiology today Review of Systems Review of Systems: All systems reviewed & are unremarkable except as noted in Subjective Physical Exam Physical Exam: Physical Exam: Vitals signs as noted above General Appearance:Morbidly Obese, no apparent distress, ill appearing Head: normocephalic, Atraumatic Eyes: normal inspection, EOMI Neck: supple, Trachea midline Respiratory/Chest: Decreased breath sounds, basal crackles, No accessory muscle use Cardiovascular: S1, S2, No murmur Abdomen/GI:Soft, Non tender, Bowel sounds present Extremities/Musculoskeletal:normal inspection, B/L LE edema, erythema, left below-knee amputation, right lower extremity ulceration on the sole Neurologic/Psych:AAOX3, grossly no focal neurological deficits Skin: normal color, warm Results & Data Results & Data Vital Signs (Past 12 Hours) Vital Signs Temp Pulse Pulse Resp BP BP Pulse Ox 05/28/23 15:05 37.0 C 88 18 112/74 92 05/28/23 12:00 05/28/23 10:57 36.8 C 73 20 103/65 94 05/28/23 08:00 94 H 05/28/23 08:00 05/28/23 07:26 36.4 C L 90 18 127/75 93 Pulse Ox O2 Del Method O2 Del Method 05/28/23 15:05 Room Air 05/28/23 12:00 95 Room Air 05/28/23 10:57 Room Air 05/28/23 08:00 05/28/23 08:00 Room Air 05/28/23 07:26 Room Air Laboratory Results [facility] 05/28/23 05:59 Sodium 137 Potassium 3.4 L Chloride 96 L Carbon Dioxide 30 BUN 29 H Creatinine 1.38 Glucose 143 H Calcium 9.8 (5) CKD (chronic kidney disease) stage 3, GFR 30-59 ml/min Chronic kidney disease stage 3 subtype: stage 3a (GFR 45-59) Qualified Code(s): N18.31 - Chronic kidney disease, stage 3a (9) Hypertension Hypertension type: primary hypertension Qualified Code(s): I10 - Essential (primary) hypertension (10) Atrial fibrillation Atrial fibrillation type: paroxysmal Qualified Code(s): I48.0 - Paroxysmal atrial fibrillation
[2023-05-28] MEDS: HYDROmorphone INJ 0.5 MG/0.5 ML SYR IV PRN (19:39)
[2023-05-28] MEDS: METOPROLOL SUCC 25MG EXT REL TAB PO SCH (19:44)
[2023-05-28] MEDS: POTASSIUM CHLORIDE CRTAB 20 MEQ TABCR PO SCH (19:45)
[2023-05-29 06:51] LABS: Hemoglobin 14.2 g/dl (14.0-18.0); Mean Corpuscular Hemoglobin 29.2 pg (25.0-34.0); Mean Corpuscular Hgb Conc 31.6 g/dL (32.0-36.0); Mean Corpuscular Volume 92.4 fL (80.0-100.0); Mean Platelet Volume 9.1 fL (9.4-12.4); Platelet Count 328 K/uL (130-400); RDW Coefficient of Variation 16.2 % (11.5-14.5); RDW Standard Deviation 54.5 fL (36.4-46.3); Red Blood Count 4.87 M/uL (4.70-6.10); White Blood Count 6.89 K/ul (4.8-10.8)
[2023-05-29 07:18] LABS: Prothrombin Time 21.2 Seconds (9.0-12.0)
[2023-05-29 07:22] LABS: BUN Creatinine Ratio 24.8 (10-20); Calcium 9.9 mg/dl (8.6-10.3); Creatinine Clr Calc Pharmacy 89.7 ml/min; Est GFR (African American) 72.6 ml/min; Est GFR (Non-African American) 62.6 ml/min; Potassium 3.7 mmol/L (3.5-5.1)
[2023-05-29] MEDS ORDERED: hydrOXYzine HCl 25 MG TAB PO PRN (08:48)
--- NOTE | 2023-05-29 08:58 | Ultrasound Report ---
ULTRASOUND RIGHT LOWER EXTREMITY ARTERIAL; TOE BRACHIAL INDICES CLINICAL HISTORY: Poorly-healing diabetic foot wound. COMPARISON STUDY: Right lower extremity arterial ultrasound dated 12/02/2022. TECHNIQUE: Real-time grayscale and color Doppler sonography of the arteries of the right lower extrem ity is performed from the inguinal crease to the foot. Toe brachial indices were assessed. FINDINGS: Toe brachial indices: Right brachial pressure measures 118 and left brachial pressure measures 125. T he patient declined ankle-brachial indices assessment due to painful wounds in the calf. Pressures in the right first toe measure 105 for a TBI of 0.84. The left lower extremity could not be assessed du e to previous low-knee amputation. Right lower extremity: Atherosclerotic plaque and irregularity is seen throughout the arteries of the right lower extremity. There are triphasic waveforms in the common femoral artery with velocities me asuring up to 122 cm/s. The profunda femoris artery is patent with velocities measuring up to 37 cm/s . There is blunted arterial upstroke in the profunda femoris artery. There are biphasic waveforms thr oughout the superficial femoral artery with velocities measuring up to 161 cm/s. Biphasic arterial wa veforms are seen in the popliteal artery with velocities measuring up to 70 cm/s. There is two-vessel runoff to the calf. No flow was shown in the peroneal artery. The anterior and posterior tibial yanni dajuan are patent. Velocities in the posterior tibial artery measure up to 52 cm/s and velocities in th e anterior tibial artery measure up to 108 cm/s. The dorsalis pedis artery is patent with velocities measuring up to 82 cm/s. IMPRESSION: 1. There is two-vessel runoff to the foot. No flow was shown in the peroneal artery. 2. Peripheral vascular disease throughout the right leg as above. No additional foci of high-grade st enosis or focal vessel cut off are seen throughout the arteries of the right leg. 3. Right toe brachial index assessment as above. Dictated: 05/29/2023 7:53 AM Transcribed: 05/29/2023 8:34 AM Crispin [id number] [email or web address] Electronically signed by: Lukas Trivedi M.D. 05/29/2023 8:57 AM
[2023-05-29] MEDS ORDERED: SPIRONOLACTONE 12.5 MG TAB PO SCH (09:00)
[2023-05-29] MEDS ORDERED: TORSEMIDE 20 MG TAB PO SCH (09:15)
[2023-05-29] MEDS: hydrOXYzine HCl 25 MG TAB PO STA (10:00)
[2023-05-29] MEDS: DICYCLOMINE HCL 20 MG TAB PO SCH (10:00)
[2023-05-29] MEDS: FAMOTIDINE 20 MG in SYRINGE 3 ML IV ONE (10:03)
[2023-05-29] MEDS: LIDOCAINE 5% 1 PATCH TD STA (10:04)
--- NOTE | 2023-05-29 10:27 | Pharmacy Report ---
Pharmacy Glycemic Short Note 2 - Date of Service May 29, 2023 - Glycemic Short BSG Results (Last 24 hours): 05/28/23 05/28/23 05/28/23 11:27 16:00 21:01 Glucose POC Glucose 165 H 168 H 145 H 05/29/23 05/29/23 05/29/23 06:13 07:26 09:22 Glucose 192 H POC Glucose 194 H 190 H OUTPATIENT ANTIDIABETIC REGIMEN: * Novolog insulin pump * Basal rate: 2 units/hr (48 units/day) * ICR: 3, CF: 30 * TDD: ~71 units/day * Empagliflozin 25 mg PO daily * HbA1c: 7.3% (05/20/23) ASSESSMENT: 05/29: * Ben received 102 units of insulin yesterday (60 were basal) * Fasting BSG elevated this AM, will continue current basal regimen at this time and adjust if this becomes a trend * Novolog parameters slightly loosened due to BSGs downtrending in the evening 05/27: * Ben received 134 units of insulin yesterday (60 were basal) * Fasting BSG below goal range this AM, will decrease basal slightly by ~10% * He was started on Augmentin to finish his antibiotic course. * Slight Novolog adjustments due to some elevated BSGs 05/25: * Fasting BSG continues to be an issue, elevated at 232 mg/dL this AM. Confirmed that no snacking or breakfast was consumed prior to accucheck. More likely that insufficient basal dose has led to this elevation although cannot rule out rebound hyperglycemia from overnight lows. Patient is requiring significantly more insulin inpatient than outpatient. * Basal dose will be increased for a fourth consecutive day. Once fasting BSG starts to trend down, may need to back off basal dose. * Novolog was tightened on Thursday. Trend downward to below goal range throughout the evening last night. Given continued increase in basal dosing, will back off on carb ratio today. 05/24: * Fasting BSG has been trending up over past several days, 184 mg/dL this morning. Basal insulin increased yesterday and again today. * Novolog tightened yesterday due to intermittent hyperglycemia - will continue these tightened parameters today * Imaging planned for tomorrow morning. Remains on Zosyn. 05/22: * Patient received total of 100 units of insulin yesterday, of which 35 units were basal insulin * Fasting BSG >160 mg/dL - will titrate up basal about ~15% this morning and increase to 40 units * BSGs yesterday still above goal range, will tighten CF 05/21: * Patient hyperglycemic yesterday, BSGs ranging 121-288 mg/dL * Received 79 units of insulin yesterday (35 units of basal and 44 units of prandial/correctional bolus) * Fasting BSG of 119 mg/dL this morning - plan to continue current basal dose * Will tighten carb ratio today due to hyperglycemia yesterday 05/19: * Mr. Lyle is admitted with right leg wound, patient was to continue home insulin pump while inpatient. Discussed with RN this is reportedly disconnected and he has not been using it, ? when he disconnected. BSGs on lab yesterday 104 mg/dl, Fasting 95 mg/dL this morning. BSG reported to be ~140 at time of consult. To obtain new BSG. * 155 units/day of basal per most recent Endo note. Patient typically requires less while in hospital. Given uncertain amount of time since pump disconnected and normal BSGs will start conservatively with basal/bolus insulin. * Adjusted weight based stress of 2 carb ratio + home correction factor. Will give 25 units x 1 of lantus with additional later today should BSGs trend upward PLAN FOR INPATIENT GLYCEMIC CONTROL: * Continue home empagliflozin 25 mg PO daily * Has been on hold since 05/23/23 * Basal insulin * Lantus 60 units SC daily * Bolus insulin * NovoLog per scale ACHS or Q6hrs while NPO * Goal Range: Low 110 mg/dL - High 140 mg/dL * Correction Factor: 20 mg/dL/unit * Nutritional / Prandial insulin per carb ratio of 1 unit per 3.5 grams CHO consumed
[2023-05-29] MEDS: bisacodyL 5 MG TABEC PO ONE (10:59)
--- NOTE | 2023-05-29 16:34 | Communication Note ---
Date of Service: May 29, 2023 Patient declines further IV diuretic or IV antibiotic use. He has been transitioned to oral 60 mg daily increased from his admission dose of 20 mg daily. He has been addition to an oral antibiotic. Will duplex performed yesterday shows noncritical arterial insufficiency, therefore compression from venous insufficiency standpoint is still an acceptabl e treatment for helping with his edema. Future considerations include outpatient assessment by Dr Adams for evaluation of venous reflux disease. Patient declines further inpatient workup.
--- NOTE | 2023-05-29 18:16 | Discharge Summary ---
Discharge Summary Date of Service May 29, 2023 Notes For Next Care Provider Medication Changes From Visit Reduced spironolactone from 25mg to 12.5 mg daily Increased torsemide from 20mg to 60mg daily Started Metolazone 2.5mg daily Started Duloxetine 20mg Continue K supplementation Stopped Gabapentin Admission HPI Per Admitting Provider He is a 57 years old morbidly obese male with significant past medical history of chronic combined systolic and diastolic heart failure, well-controlled asthma, AIDP sacral, CKD, diabetes type 2 on insulin, GERD, history of diabetic ulcers of the foot, left AKA amputation status, hypertension, hypothyroidism, ischemic cardiomyopathy, peripheral artery disease, sleep apnea on BiPAP, and venous stasis ulcer on the right foot apparently has been complaining of increasing pain in the right foot associated with swelling of the right leg and left thigh for the last few days. He denies any fever and or chills associated with it. Denies any increasing shortness of breath associated with it. No nausea no vomiting. Apparently he was supposed to see his armament installer last Thursday but missed that. He recently finished doxycycline about 4 or 5 days ago for the ongoing foot infection. He gets this feet wounds dressed by home health nurse every 3 days and noted to have more drainage from the right sole of the foot recently with increasing pain. Denies any chest pain, shortness of breath or palpitation and has been taking his medications regularly. He remained stable hemodynamically in the emergency room without any fever and without any elevation of the white count. His wound was cultured and he was started with intravenous Zosyn following taking cultures and he was admitted to medical floor for continuation of care. Principal Dx & Hospital Course #1 = Principal Diagnosis (1) Acute on chronic combined systolic and diastolic CHF (congestive heart failure): (2) Ischemic cardiomyopathy: (3) Cardiac defibrillator in situ: H/O Ischemic cardiomyopathy S/P AICD placement VT s/p ablation Chronic venous stasis Underwent aggressive IV diuresis, bumex 3mg TID -Patient aggrevated stating that bumex is hurting him and he does not want this anymore -Discussion with cardiology, despite best efforts over admission, decision made to transition to PO torsemide at 60mg with metolazone 2.5mg daily -Will need Cards follow up Held Maryellen Vallejo Jardiance given low BP Continued on metoprolol succinate 75 mg twice daily Resumed Aldactone at 12.5 mg daily Discontinued gabapentin (4) Cellulitis of right leg: (5) Leg wound, right: #Right diabetic foot cellulitis/leg wound--POA #Peripheral vascular disease H/O Chronic leg wounds with H/O Osteomyelitis Right first toe foreign body--incidental finding on x-ray (discussed with Dr. Bansal on 05/21/2023. Also noted on prior images per Dr. Bansal. No intervent ion needed.) --Foot X ray:No acute fracture or evidence for acute osteomyelitis within the right foot.. Right midfoot soft tissue gas suggestive of a wound. Amputation of the distal phalanx of the right first toe. Linear 6 mm metallic density within the plantar aspect of the right first toe. This favors a small foreign body. -- Blood cultures negative -- Wound culture positive for Proteus, Enterococcus faecalis, Myroides species -- MRSA screen negative --on IV Zosyn--completed 8 days of antibiotic course. No surgical intervention recommended by podiatry Appreciate podiatry input Beth Medopadleonarda [employer] ID on board: Superficial wound cultures likely unreliable. Can complete 10-day course of antibiotics. -Prescription for Augmentin sent to pharmacy to complete 10 day course Continue wound care with HH Podiatry follow up Per Dr. Nazario regarding inpatient management: "Patient declines further IV diuretic or IV antibiotic use. He has been transitioned to oral 60 mg daily increased from his admission dose of 20 mg daily. He has been addition to an oral antibiotic. Will duplex performed yesterday shows noncritical arterial insufficiency, therefore compression from venous insufficiency standpoint is still an acceptable treatment for helping with his edema. Future considerations include outpatient assessment by Dr Adams for evaluation of venous reflux disease. Patient declines further inpatient workup." (6) 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: HbA1c 7.3 Resume home regimen (7) Morbid obesity: BMI 55 , attempted counselling, patient declined; continue further efforts OP (8) CKD (chronic kidney disease) stage 3, GFR 30-59 ml/min: Renal function at baseline (9) NINA on CPAP: Continue with the CPAP and/or BiPAP as at home (10) Hypertension: (11) Atrial fibrillation: Continue home Coumadin regimen with OP AC/HH follow up Maury Vallejo held Continue Metorpolol 75mg BID (12) History of amputation of left foot: Complains to have swelling of the stump on the right side Continue diuretics as above (13) Adjustment disorder with mixed disturbance of emotions and conduct: Continued on duloxetine 20mg Plan Mr. Lyle is a 57 year old gentleman with morbidly obesity, chronic combined systolic and diastolic heart failure, well-controlled asthma, AIDP sacral, CKD, diabetes type 2 on insulin, GERD, history of diabetic ulcers of the foot, left AKA amputation status, hypertension, hypothyroidism, ischemic cardiomyopathy, peripheral artery disease, sleep apnea on BiPAP, and venous stasis ulcer on the right foot apparently has been complaining of increasing pain in the right foot associated with swelling of the right leg and left thigh. On admission, multiple efforts were made to evaluate wounds and to manage heart failure symptoms. Patient's management limited secondary to patient refusal for various interventions and therapies/recommendations. Wounds on legs were negative for signs of osteomyelitis, and after Id recommendations, patient started on PO abx for 10 day course. Patient was also being aggressively diuresis given acute on chronic heart failure, however, patient refused and declined multiple therapeutic interventions, including continued IV diuersis as patient felt it didn't "work well" with his body. It was stressed that it would be ideal, however, if c ontinued to use IV diuresis he stated he needed to have dilaudid. Discussion with Cardiology determined that it would be suitable to transition to PO torsemide given patient's request. On day of dischagre, patient ultimately stated that he no longer wished to stay and "wait for a rehab bed" and therefore requested home health services and discharge. Patient situation is complicated by extreme psychosocial stressors. Discharge Exam Constitutional disheveled, coherent, but agitated Respiratory difficult to assess 2/2 habitus Cardiovascular irregularly irregular Gastrointestinal (Abdomen) large, soft abdomen Musculoskeletal right leg with diffuse edema, venous stasis hyperpigmentation, dusky erythema; left prothesis stump sock in place Updated Medication List Medication Instructions Recorded Confirmed Type mometasone-formoterol HFA 200 2 puffs inhalation BID 12/21/17 05/18/23 History mcg-5 mcg/actuation aerosol inhaler (Dulera) omeprazole 20 mg capsule,delayed 20 mg PO QAM 12/21/17 05/18/23 History release clobetasol 0.05 % topical cream 1 applic topical BID PRN dry skin 01/18/20 05/18/23 History albuterol sulfate 90 mcg/actuation 2 puff inhalation QID PRN SHORT OF 05/30/20 05/18/23 History aerosol inhaler (Ventolin HFA) BREATH aspirin 81 mg tablet,delayed 81 mg PO QAM 06/12/20 05/18/23 History release levothyroxine 88 mcg tablet 88 mcg PO DAILY 12/13/20 05/18/23 History spironolactone 25 mg tablet 25 mg PO DAILY 12/13/20 05/18/23 History magnesium oxide 400 mg PO DAILY 08/08/21 05/18/23 History sacubitril 24 mg-valsartan 26 mg 1 tab PO BID 09/27/21 05/18/23 History tablet (Entresto) insulin aspart U-100 100 unit/mL 240 unit (2.4 mL) continuous 04/19/22 05/18/23 Rx subcutaneous solution (Novolog subcutaneous infusion DAILY #216 mL U-100 Insulin aspart) tramadol 50 mg tablet 50 mg PO Q6H PRN Pain 06/06/22 05/18/23 History empagliflozin 25 mg tablet 25 mg PO DAILY #90 tabs 03/26/23 05/18/23 Rx acetaminophen 325 mg tablet 650 mg PO DIRECTED PRN PAIN, 05/18/23 05/18/23 History (Tylenol) MILD-MODERATE ergocalciferol (vitamin D2) 1,250 1,250 mcg PO WK 05/18/23 05/18/23 History mcg (50,000 unit) capsule (Vitamin D2) ferrous sulfate 325 mg (65 mg 325 mg PO BID 05/18/23 05/18/23 History iron) tablet hydrocodone 5 mg-acetaminophen 325 1 tab PO Q6H PRN Pain 05/18/23 05/18/23 History mg tablet loratadine 10 mg tablet (Claritin) 10 mg PO DAILY 05/18/23 05/18/23 History nitroglycerin 0.4 mg sublingual 0.4 mg sublingual DIRECTED PRN 05/18/23 05/18/23 History tablet (Nitrostat) Chest Pain triamcinolone acetonide 0.1 % 1 applic topical BID 05/18/23 05/18/23 History lotion warfarin 2 mg tablet See Rx Instructions .Route .COMPLEX 05/18/23 05/18/23 History amoxicillin 875 mg-potassium 1 tab PO BIDM 13 days #26 tabs 05/29/23 Rx clavulanate 125 mg tablet duloxetine 20 mg capsule,delayed 20 mg PO QAM #30 caps 05/29/23 Rx release (Cymbalta) metolazone 2.5 mg tablet 2.5 mg PO QAM #30 tabs 05/29/23 Rx metoprolol succinate 25 mg 75 mg (3 x 25 mg) PO BID #180 tabs 05/29/23 Rx tablet,extended release 24 hr potassium chloride 10 mEq 20 meq (2 x 10 mEq) PO BID #60 tabs 05/29/23 05/18/23 Rx tablet,extended release(part/cryst) spironolactone 25 mg tablet 12.5 mg (1/2 x 25 mg) PO DAILY #30 05/29/23 Rx tabs torsemide 20 mg tablet 60 mg (3 x 20 mg) PO QAM #90 tabs 05/29/23 Rx Hospital Stay Data Consultations 05/18/23 17:15 ED Decision to Admit Stat 05/19/23 08:23 Consult Podiatry Routine 05/21/23 09:41 Consult Infectious Diseases Routine 05/23/23 11:22 Consult Cardiology Routine Diagnostic Imagining Performed 05/26/23 01:58 CT Abd and Pelvis [CT abd pelvis wo con] Stat 05/26/23 12:12 CT foot RT wo con Routine CT leg [CT tib/fib RT wo con] Routine 05/26/23 12:30 CT leg [CT femur LT wo con] Routine 05/28/23 16:08 US arterial duplex LE RT Routine Pending Results Patient Have Any Pending Studies at Discharge: No Discharge Instructions Given to Patient (Per Discharging Provider) You were admitted for right foot pain initially. Bone infection was ruled out a nd it was felt that oral antibiotics would be best in this instance. You will need to follow up with Dr. Bansal and continue home wound management. Please continue the following: -Augmentin 1 tablet two times a day, until all tablets are complete. Cardiology was consulted as you were noted to have alot of volume and required IV water pill management. You were noted to no longer tolerate the bumex, therefore it was decided to transitioned to the following: -Torsemide 60mg daily -Metolazone 2.5mg daily Here were the following adjustments to your heart failure medications: -Hold Jardiance -Hold Entresto -Change in dose of Spironolactone, now 12.5mg daily -Start taking Metoprolol XL 75 MG two times a day You were taken off of gabapentin and started on duloxetine. This medication can help reduced fluid retention and edema. -Duloxetine 20mg daily There is room for increase in dose, please discuss with your PCP. Please continue all other home medications as prescribed. HOME HEALTH: Please draw CBC, CMP in 1 week and send results to PCP Home Health Attestation I certify that this patient is under my care and that I, or a physicians clinical trials assistant working with me, had a face to-face encounter that meets the home health [id number] encounter requirements with this patient. The encounter with the patient was in whole, or in part, for the following medical condition, which is the primary reason for home health care (list medical condition): DM foot wound I certify that, based on my findings, the following services are medically necessary home health services: My clinical findings support the need for the above services because: OT Assess ADL Status and Restore Function w ADLs PT Assessment for Endurance / Balance / Strength PT Eval for Safety and Mobility PT Eval for Safety, Gait Training, Assistive Devices PT Gait and Balance Training, Strengthening and Safety Skilled Nsg Assessment Skilled Nsg Assessment Surgical Incision / Wound Further, I certify that my clinical findings support that this patient is homebound (i.e. absences from home require considerable and taxing effort and are for medical reasons or faith services or infrequently or of short duration when for other reasons) because: Supportive Aid - Wheelchair Certification for Home Health Services: Based on the above findings, I certify that this patient is confined to the home and needs intermittent jail care, physical therapy and/or speech therapy or continues to need occupational therapy. The patient is under my care, and I have initiated the establishment of the plan of care. This patient will be followed by a physician who will periodically review the plan of care. Total Time Total Time Spent Total Time Spent (In Minutes): 75
[2023-05-30] MEDS ORDERED: ERGOCALCIFEROL 1250 MCG (50,000 UNITS) CAP PO SCH (09:00)
--- NOTE | 2023-05-30 09:02 | Orthopedic Progress Note ---
Date of Service May 29, 2023 Assessment & Plan (1) 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: Plan: Patient seen and evaluated. Patient resting comfortably with no complaints. Patient does have lower extremity lymphedema which complicates his wounds. Discussed dressing changes with home health nursing [facility] who will be providing in home care. Dressing changes include Aquacel, unna boot, Coban, Tubi notch machine operator twice a week. Thank you for allowing me to participate in the care of this Patient. (2) Leg wound, right: (3) Cellulitis of right leg: (4) PVD (peripheral vascular disease): Admission and Anticipated Discharge Date Admission Date: May 18, 2023 Subjective Patient is seen for bilateral lower extremity wounds and wound care orders for discharge. Patient will be discharged to home with home health as SNF not available. Patient has no complaints. Physical Exam Constitutional: + morbidly obese, cooperative and comfor table Respiratory: normal respiratory effort Cardiovascular: Vessels: posterior tibial pulses present and dorsalis pedis pulses present Musculoskeletal: Extremities: + amputation noted (Left BKA) and + lower leg abnormality Skin: + lesion (Right leg full thickness wound s) and + ulcer (right hallux amputation site and lateral foot full thickness wound.) Psychiatric: Orientation: alert and oriented x 3
== END 2023-05-29 17:42 | disposition home health service (06) | DRG 637 ==
LOC: ED 14:33 → EDINP 18:12 → SUATTDRO 18:12 → 2W 05-20 16:51 → 2S 05-24 15:27

== ENCOUNTER 2024-02-08 19:17 | Inpatient (IN) ==
[2024-02-08 19:47] LABS: Basophils # (auto) 0.07 K/uL (0.00-0.20); Basophils % (auto) 0.8 %; Eosinophils # (auto) 0.16 K/uL (0.00-0.50); Eosinophils % (auto) 1.9 %; Hematocrit (blood only) 43.9 % (42.0-52.0); Immature Granulocytes # (auto) 0.07 K/uL (0.01-0.20); Immature Granulocytes % (auto) 0.8 %; Lymphocytes # (auto) 0.54 K/uL (1.20-3.40); Lymphocytes % (auto) 6.3 %; Mean Corpuscular Hemoglobin 27.1 pg (25.0-34.0); Mean Corpuscular Hgb Conc 31.9 g/dL (32.0-36.0); Mean Corpuscular Volume 84.9 fL (80.0-100.0); Mean Platelet Volume 9.3 fL (9.4-12.4); Monocytes # (auto) 1.33 K/uL (0.11-0.59); Monocytes % (auto) 15.6 %; Neutrophils # (auto) 6.36 K/uL (1.40-6.50); Neutrophils % (auto) 74.6 %; Platelet Count 345 K/uL (130-400); RDW Coefficient of Variation 18.7 % (11.5-14.5); RDW Standard Deviation 57.1 fL (36.4-46.3); Red Blood Count 5.17 M/uL (4.70-6.10); White Blood Count 8.53 K/ul (4.8-10.8)
[2024-02-08 20:02] LABS: Albumin Globulin Ratio 0.6 (0.9-2); Albumin Level 3.2 gm/dl (3.4-5.0); BUN Creatinine Ratio 29.2 (10-20); Bilirubin,Total 1.6 mg/dl (0.2-1.0); Calcium 9.1 mg/dl (8.6-10.3); Creatinine Clr Calc Pharmacy 73.4 ml/min; Globulin 5.6 gm/dl (2.5-4.0); Potassium 3.4 mmol/L (3.5-5.1); Total Protein 8.8 gm/dl (6.0-8.3)
[2024-02-08] MEDS ORDERED: VANCOMYCIN CONSULT ACTIVE PRN (22:30)
--- NOTE | 2024-02-08 23:08 | Emergency Department Note ---
Impression & Plan Wound, open, foot with complication, Diabetes, Adult failure to thrive ED Provider Note NAME: STANISLAW ALCANTAR Jr AGE: 58 SEX: M : 1965 ARRIVES VIA: Ambulance INFORMANT: Patient, ED PROVIDER(S): Erna Erazo MD CHIEF COMPLAINT: Right foot infection HPI: This is a 58-year-old male presenting for right foot infection. Patient has a wound VAC placed to this wound. He is seeing wound care who did a biopsy of his foot reportedly. He was supposed to come here last week for PICC/central line placement for IV antibiotics. The facility in which he resides, her left side, states you are unable to provide transportation to the hospital so he did not get the IV or antibiotics despite this being ordered by the wound care physician. He was sent in by his wound care physician. Otherwise patient noted worsening swelling to his leg, worsening pain. No significant drainage, wound VAC is working as expected. ROS: See above HPI for pertinent positives & negatives. A total of 10 systems reviewed and were otherwise negative. PAST MEDICAL HISTORY: See Below PAST SURGICAL HISTORY: See Below FAMILY HISTORY: See Below SOCIAL HISTORY: See Below HOME MEDICATIONS: See Below ALLERGIES: See Below VITALS: See Below PHYSICAL EXAMINATION: General: Chronically ill-appearing, elevated BMI Head: Normocephalic and atraumatic Eyes: Normal inspection, extraocular muscles intact Ear, nose, throat: Normal external exam Neck: Normal range of motion Respiratory: lungs clear to auscultation bilaterally Cardiovascular: Regular rate/rhythm, no murmur GI: soft, nontender, no guarding or rebound Extremities: Left BKA, right lower extremity swelling, chronic and, malodorous, wound VAC in place Neuro: The patient awake and alert, appropriately conversive, no focal deficits, symmetric faces Skin: Warm, dry, and intact MEDICAL DECISION MAKING: This is a 58-year-old male presenting for right foot infection. Patient has needed IV antibiotics and central line placement for the past few days but does not have transport at his nursing facility. He was sent here by wound care physician. Overall he does have f poor wound healing with wound VAC on place. Due to delay in care, we beneficial for admission for IV antibiotics and IV placement. Will order x-ray to help evaluate. -X-ray as Independently interpreted by me reveals first toe amputation, no obvious signs of osteomyelitis, no subcutaneous gas -Overall patient has significantly edematous legs with and chronic skin changes. -Blood work is reviewed showing creatinine 1.71, slightly above baseline otherwise Slight hyponatremia is noted without anemia/leukocytosis. Patient slightly hyperglycemic here. -Discussed Dr. Pendleton For admission at this time Differential diagnosis: Osteomyelitis, diabetic foot ulcer, gangrene ER treatment provided: See below Diagnostics interpreted by me: ECG: None Cardiac Monitoring: An order was placed for continuous cardiac monitoring. The monitor shows a rate of 90 with sinus rhythm. Laboratory studies: As stated above and show below. Imaging studies: See below. Past Med/Surg History Problem List (Updated 02/09/24 @ 02:32 by Erna Erazo MD) Adult failure to thrive (Acute) Diabetes (Acute) Wound, open, foot with complication (Acute) History of ventricular tachycardia Persistent atrial fibrillation Acute on chronic combined systolic and diastolic CHF (congestive heart failure) 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 (Acute) Leg wound, right Cellulitis of right leg (Acute) PVD (peripheral vascular disease) (Acute) 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 (Acute) Infected abrasion of right leg Morbid obesity H/O osteomyelitis CKD (chronic kidney disease) stage 3, GFR 30-59 ml/min (Chronic) Asthma (Chronic) NINA on CPAP (Chronic) Ischemic cardiomyopathy (Chronic) Hypothyroidism (Chronic) History of diabetic ulcer of foot (Chronic) Cardiac defibrillator in situ (Chronic) 2007 with replacement 03/2020. follows with Dr. Maya. 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) (Chronic) Peripheral arterial disease (Chronic) History of COVID-19 (Chronic) History of amputation of left foot (Chronic) Adjustment disorder with mixed disturbance of emotions and conduct MDD (major depressive disorder), recurrent episode, mild Medical History Sustained ventricular tachycardia Depression with suicidal ideation Acute osteomyelitis of left foot Peripheral arterial disease T2DM (type 2 diabetes mellitus) CHF (congestive heart failure) Acute on chronic combined systolic (congestive) and diastolic (congestive) heart failure Diabetic ulcer of right foot Pneumonia due to COVID-19 virus SARS-CoV-2 positive Sepsis Cellulitis of left lower leg Diabetic ulcer of left heel associated with diabetes mellitus due to underlying condition, limited to breakdown of skin Acute on chronic renal failure Acute hypoxemic respiratory failure Sleep apnea Rectal bleeding Depression Diabetes type 2, uncontrolled Vitamin D deficiency Diabetic peripheral neuropathy associated with type 2 diabetes mellitus Deformity of foot Adams fracture Dyslipidemia Hypertension Diabetic ulcer of left foot associated with type 2 diabetes mellitus, with fat layer exposed Hx of sepsis Arthritis CAD (coronary artery disease) Venous stasis ulcer of right lower leg with edema of right lower leg Hypokalemia Bacteremia due to group B Streptococcus Lymphedema Sustained VT (ventricular tachycardia) GERD (gastroesophageal reflux disease) Hx of osteomyelitis Hx of myocardial infarction Asthma Cardiac defibrillator in situ CKD (chronic kidney disease) stage 3, GFR 30-59 ml/min Morbid obesity H/O osteomyelitis History of diabetic ulcer of foot Hypothyroidism Ischemic cardiomyopathy Surgical History History of esophagogastroduodenoscopy (EGD) H/O foot surgery H/O cardiac radiofrequency ablation History of cardiac cath History of sinus surgery Hx of tonsillectomy History of colonoscopy Hx of amputation of lesser toe H/O shoulder surgery Family History Sister Family history of diabetes mellitus 2 Grandmother (Maternal) Family history of diabetes mellitus Grandfather (Maternal) Family history of diabetes mellitus Father Cancer Mother Cancer Other No family history of adverse response to anesthesia Social History Smoking Status: Never smoker Second Hand Exposure: No; Do You Dip or Chew Tobacco: No; Hx Alcohol Use: Yes Alcohol type: hard liquor Hx Substance Use: No Preferred Language: Armenian Communication Ability: Effective Manager Of Data Required: No Beliefs That Will Affect Care: None marital status: Current Living Situation: Alone current occupational status: disabled How many Children do You have: 3 Feels Safe at Home: Yes Assistive Devices: CPAP and Wheelchair Allergies Allergies Allergy/AdvReac Type Severity Reaction Status Date / Time benzonatate AdvReac Intermediate choking, Verified 01/07/24 13:17 gagging Home Meds Home Medications Medication Instructions Recorded Confirmed Lantus Solostar U-100 Insulin 40 units SC BID 02/08/24 02/09/24 acetaminophen 325 mg tablet 650 mg PO QID PRN Pain 02/08/24 02/09/24 (Tylenol) aspirin 81 mg tablet,delayed 81 mg PO DAILY 02/08/24 02/09/24 release atorvastatin 80 mg tablet 80 mg PO DAILY 02/08/24 02/09/24 bisacodyl 10 mg rectal suppository 10 mg IA DAILY PRN Constipation 02/08/24 02/09/24 (Dulcolax (bisacodyl)) cefepime 2 gram solution for 2 g IV BID 02/08/24 02/09/24 injection ergocalciferol (vitamin D2) 50,000 50,000 unit PO WK 02/08/24 02/09/24 unit tablet ferrous sulfate 325 mg (65 mg 325 mg PO BID 02/08/24 02/09/24 iron) tablet hyoscyamine sulfate 0.125 mg tablet 0.125 mg PO Q4H PRN Abdominal Pain 02/08/24 02/09/24 insulin aspart U-100 100 unit/mL 10 unit subcut AC 02/08/24 02/09/24 subcutaneous solution (Novolog U-100 Insulin aspart) levothyroxine 88 mcg tablet 88 mcg PO DAILY 02/08/24 02/09/24 metolazone 2.5 mg tablet 2.5 mg PO UD 02/08/24 02/09/24 metoprolol tartrate 50 mg tablet 50 mg PO TID 02/08/24 02/09/24 multivitamin,[id number]-min 1 tab PO DAILY 02/08/24 02/09/24 nystatin 1 applic EXT UD 02/08/24 02/09/24 omeprazole 20 mg capsule,delayed 20 mg PO DAILY 02/08/24 02/09/24 release oxycodone 10 mg tablet 20 mg PO Q4H PRN Pain, Severe 02/08/24 02/09/24 potassium chloride 20 mEq 20 meq PO BID 02/08/24 02/09/24 tablet,extended release(part/cryst) pregabalin 50 mg capsule 50 mg PO BID 02/08/24 02/09/24 sitagliptin phosphate 50 mg tablet 50 mg PO DAILY 02/08/24 02/09/24 (Januvia) sennosides 8.6 mg-docusate sodium 2 tab-cap PO HS 02/09/24 02/09/24 50 mg tablet (Senna-S) spironolactone 25 mg tablet 25 mg PO DAILY 02/09/24 02/09/24 torsemide 60 mg PO DAILY 02/09/24 02/09/24 triamcinolone acetonide 0.1 % 1 applic topical TID 02/09/24 02/09/24 lotion warfarin 3 mg tablet 3 mg PO DAILY 02/09/24 02/09/24 Results & Data (ED) Vital Signs Vital Signs - 24 hr 02/08/24 19:23 02/08/24 19:24 02/08/24 19:43 Temperature 36.8 C Temperature Source Oral Pulse Rate 84 87 77 Pulse Rate from SpO2 Sensor Pulse Rhythm Regular Pulse Strength Normal Respiratory Rate 18 23 Respiratory Effort / Characteristics Non-Labored Respiratory Depth Normal Respiratory Pattern Regular Blood Pressure 114/69 114/69 Blood Pressure Mean 84 84 Blood Pressure Position Sitting Pulse Oximetry 98 94 Oxygen Delivery Method Room Air Room Air Sepsis Recent Fever Within 48 Hours No Sepsis New/Unexplained Change in Mental Status No Sepsis Action Taken by Nursing No Action Required 02/08/24 20:06 02/08/24 20:21 02/08/24 20:21 Temperature Temperature Source Pulse Rate 83 Pulse Rate from SpO2 Sensor Pulse Rhythm Pulse Strength Respiratory Rate 17 Respiratory Effort / Characteristics Respiratory Depth Respiratory Pattern Blood Pressure 114/71 114/71 Blood Pressure Mean 77 77 Blood Pressure Position Pulse Oximetry 94 Oxygen Delivery Method Room Air Sepsis Recent Fever Within 48 Hours Sepsis New/Unexplained Change in Mental Status Sepsis Action Taken by Nursing 02/08/24 20:30 02/08/24 21:03 02/08/24 21:36 Temperature Temperature Source Pulse Rate 83 92 H 80 Pulse Rate from SpO2 Sensor 88 85 81 Pulse Rhythm Pulse Strength Respiratory Rate 26 H 24 22 Respiratory Effort / Characteristics Respiratory Depth Respiratory Pattern Blood Pressure 106/57 L 111/64 103/71 Blood Pressure Mean 73 79 81 Blood Pressure Position Pulse Oximetry 93 96 92 Oxygen Delivery Method Room Air Room Air Room Air Sepsis Recent Fever Within 48 Hours Sepsis New/Unexplained Change in Mental Status Sepsis Action Taken by Nursing 02/08/24 22:00 10/14/24 23:03 02/08/24 23:30 Temperature Temperature Source Pulse Rate 87 95 H Pulse Rate from SpO2 Sensor Pulse Rhythm Pulse Strength Respiratory Rate 16 17 Respiratory Effort / Characteristics Respiratory Depth Respiratory Pattern Blood Pressure 106/63 90/72 L 116/79 Blood Pressure Mean 71 78 86 Blood Pressure Position Pulse Oximetry 96 94 Oxygen Delivery Method Room Air Room Air Sepsis Recent Fever Within 48 Hours Sepsis New/Unexplained Change in Mental Status Sepsis Action Taken by Nursing 02/08/24 23:39 Temperature Temperature Source Pulse Rate 90 Pulse Rate from SpO2 Sensor Pulse Rhythm Pulse Strength Respiratory Rate Respiratory Effort / Characteristics Respiratory Depth Respiratory Pattern Blood Pressure Blood Pressure Mean Blood Pressure Position Pulse Oximetry Oxygen Delivery Method Sepsis Recent Fever Within 48 Hours Sepsis New/Unexplained Change in Mental Status Sepsis Action Taken by Nursing Laboratory Data 02/08/24 19:28 02/08/24 19:28 Lab Results 02/08/24 Range/Units 19:28 WBC 8.53 (4.8-10.8) K/ul RBC 5.17 (4.70-6.10) M/uL Hgb 14.0 (14.0-18.0) g/dl Hct 43.9 (42.0-52.0) % MCV 84.9 (80.0-100.0) fL MCH 27.1 (25.0-34.0) pg MCHC 31.9 L (32.0-36.0) g/dL RDW Std Deviation 57.1 H (36.4-46.3) fL RDW Coeff of Мария 18.7 H (11.5-14.5) % Plt Count 345 (130-400) K/uL MPV 9.3 L (9.4-12.4) fL Immature Gran % (Auto) 0.8 % Neut % (Auto) 74.6 % Lymph % (Auto) 6.3 % [place] % (Auto) 15.6 % Eos % (Auto) 1.9 % Baso % (Auto) 0.8 % Neut # (Auto) 6.36 (1.40-6.50) K/uL Lymph # (Auto) 0.54 L (1.20-3.40) K/uL [place] # (Auto) 1.33 H (0.11-0.59) K/uL Eos # (Auto) 0.16 (0.00-0.50) K/uL Baso # (Auto) 0.07 (0.00-0.20) K/uL Immature Gran # (Auto) 0.07 (0.01-0.20) K/uL Sodium 132 L (136-145) mmol/L Potassium 3.4 L (3.5-5.1) mmol/L Chloride 91 L (98-107) mmol/L Carbon Dioxide 31 (21-32) mmol/L Anion Gap 10 (3-11) BUN 50 H (6-23) mg/dl Creatinine 1.71 H (0.6-1.4) mg/dl Est Cr Clr Drug Dosing 73.4 ml/min eGFR 45.26 BUN/Creatinine Ratio 29.2 H (10-20) Glucose 198 H (70-99(Fasting)) mg/dl Calcium 9.1 (8.6-10.3) mg/dl Total Bilirubin 1.6 H (0.2-1.0) mg/dl AST 27 (13-39) U/L ALT 9 (7-52) U/L Alkaline Phosphatase 100 (34-104) U/L Total Protein 8.8 H (6.0-8.3) gm/dl Albumin 3.2 L (3.4-5.0) gm/dl Globulin 5.6 H (2.5-4.0) gm/dl Albumin/Globulin Ratio 0.6 L (0.9-2) Administered Medications Discontinued Medications Vancomycin HCl 2,750 mg/ (Sodium Chloride) 555 mls @ 180 mls/hr IV NOW ONE Stop: 02/09/24 01:34 Last Admin: 02/08/24 23:09 Dose: 180 mls/hr Documented By: KMS Discharge Plan Visit Data Chief Complaint: Foot Injury/Pain Stated Complaint: R FOOT INFECTION X COUPLE MONTHS ED Provider: Erna Erazo Discharge Problem: Wound, open, foot with complication, Diabetes, Adult failure to thrive Patient Disposition: Admitted As Inpatient Discharge Instructions Interventions: ED Discharge Assessment Last Done: 02/09/24 00:53
[2024-02-08] MEDS: VANCOMYCIN HCL 2,750 MG in SODIUM CHLORIDE 0.9% 500 ML IV ONE (23:09)
--- NOTE | 2024-02-09 00:48 | History & Physical Report ---
Date of Service February 09, 2024 Assessment & Plan (1) Leg wound, right: Plan: 58-year-old male with past medical history significant for type 2 diabetes, diabetic polyneuropathy, diabetic retinopathy, testicular hypofunction, hyperlipidemia, hypothyroidism, obstructive sleep apnea, asthma in remission, chronic systolic and diastolic CHF, history of CAD, history of pulmonary hypertension, history of ventricular tachycardia, status post AICD, history of atrial fibrillation, history of chronic cor pulmonale, peripheral artery disease, venous stasis ulcers, hypertension, morbid obesity, vitamin D deficiency, chronic ulcer of the right lower leg, anemia, status post left BKA, depression, statin intolerance, currently residing at [facility] comes for possible PICC placement and IV antibiotics for left right lower leg wound. Patient is following with the wound care. Wound VAC placed on right foot about couple of weeks ago per patient. Few days ago last Thursday biopsy of the right foot was done. Patient does not know the results of the biopsy. Seems senior care did not had transportation and was not started on antibiotics. Patient says he called EMS and came here. We do not have records of the wound care currently. Denies any fever. Has pain in the right leg. Ambulates with a cane. Somewhat constipated. Denies any blood in the stools. Micturating okay. Denies abdominal pain. No nausea. No chest pain. No shortness of breath. No headache no dizziness. No blurred vision. No sore throat or cough. Hemodynamics are okay.Ambulates with cane.States last several days not taking Coumadin in anticipation of PICC line placement. Right leg wound S/p wound VAC in right foot S/p biopsy of right foot do not have results Records from wound care Supposed to start on IV antibiotics possible osteo but not started yet IV Vanco and cefepime Wound care consult Podiatry consult Further plan for antibiotics and PICC line placement per podiatry Close monitor CHATO on CKD stage III Baseline creatinine 1.2-1.3 Creatinine 1.7 today Will hold his diuretics Follow repeat labs Hyponatremia Sodium 132 Holding diuretics Repeat labs Hypokalemia Will replace Total bilirubin 1.6 Seems chronic elevation AST ALT okay Chronic systolic and diastolic CHF( ef 35% echo 11/2023) Chronic cor pulmonale Ischemic cardiomyopathy Chronic venous stasis History of VT status post ablation Status post AICD Currently per [facility] med rec On metoprolol tartrate 50 mg 3 times daily( was on toprol xl 75mg bid before), torsemide 60 mg daily and spironolactone 25 mg daily and metolazone 2.5 mg 3 times a week and potassium supplement seems cardio working on Jardiance and Entresto cost assistance Holding diuretics Along with potassium supplement for CHATO Will monitor for volume overload Peripheral vascular disease On statin and aspirin Diabetes Continue home Lantus Sliding scale Hold Januvia Will monitor blood sugars Follow HbA1c levels Obstructive sleep apnea BiPAP nightly Atrial fibrillation Continue metoprolol Patient states Coumadin held for last few days in anticipation of PICC line placement Will restart as soon as possible Hypertension On metoprolol and diuretics Will monitor GERD Omeprazole Hypothyroidism On Synthyroid Diabetic polyneuropathy On Lyrica DVT prophylaxis Follow PT/INR if subtherapeutic will place on heparin subcu Restart Coumadin as soon as possible Disposition Med/telemetry Full code. History of Present Illness Chief Complaint: Right leg infection Primary Care Provider: NO PCP 58-year-old male with past medical history significant for type 2 diabetes, diabetic polyneuropathy, diabetic retinopathy, testicular hypofunction, hype rlipidemia, hypothyroidism, obstructive sleep apnea, asthma in remission, chronic systolic and diastolic CHF, history of CAD, history of pulmonary hypertension, history of ventricular tachycardia, status post AICD, history of atrial fibrillation, history of chronic cor pulmonale, peripheral artery disease, venous stasis ulcers, hypertension, morbid obesity, vitamin D deficiency, chronic ulcer of the right lower leg, anemia, status post left BKA, depression, statin intolerance, currently residing at [facility] comes for possible PICC placement and IV antibiotics for left right lower leg wound. Patient is following with the wound care. Wound VAC placed on right foot about couple of weeks ago per patient. Few days ago last Thursday biopsy of the right foot was done. Patient does not know the results of the biopsy. Seems senior care did not had transportation and was not started on antibiotics. Patient says he called EMS and came here. We do not have records of the wound care currently. Denies any fever. Has pain in the right leg. Ambulates with a cane. Somewhat constipated. Denies any blood in the stools. Micturating okay. Denies abdominal pain. No nausea. No chest pain. No shortness of breath. No headache no dizziness. No blurred vision. No sore throat or cough. Hemodynamics are okay.Ambulates with cane.States last several days not taking Coumadin in anticipation of PICC line placement. Past medical history. As mentioned above Past surgical history. Left below-knee amputation. Colonoscopy. Left heart catheterization. Right heart catheterization. EGD. Status post AICD. Tonsillectomy. Social history. No smoking. Alcohol rarely. No drug use. Family history. Son has diabetes, hypertension, allergies. Father had lung cancer. Mother had a bone marrow cancer. Sister has diabetes. Stroke. Allergies Allergy/AdvReac Type Severity Reaction Status Date / Time benzonatate AdvReac Intermediate choking, Verified 01/07/24 13:17 gagging Home Medications Medication Instructions Recorded Confirmed Type Lantus Solostar U-100 Insulin 40 units SC BID 02/08/24 02/09/24 History acetaminophen 325 mg tablet 650 mg PO QID PRN Pain 02/08/24 02/09/24 History (Tylenol) aspirin 81 mg tablet,delayed 81 mg PO DAILY 02/08/24 02/09/24 History release atorvastatin 80 mg tablet 80 mg PO DAILY 02/08/24 02/09/24 History bisacodyl 10 mg rectal suppository 10 mg MO DAILY PRN Constipation 02/08/24 02/09/24 History (Dulcolax (bisacodyl)) cefepime 2 gram solution for 2 g IV BID 02/08/24 02/09/24 History injection ergocalciferol (vitamin D2) 50,000 50,000 unit PO WK 02/08/24 02/09/24 History unit tablet ferrous sulfate 325 mg (65 mg 325 mg PO BID 02/08/24 02/09/24 History iron) tablet hyoscyamine sulfate 0.125 mg tablet 0.125 mg PO Q4H PRN Abdominal Pain 02/08/24 02/09/24 History insulin aspart U-100 100 unit/mL 10 unit subcut AC 02/08/24 02/09/24 History subcutaneous solution (Novolog U-100 Insulin aspart) levothyroxine 88 mcg tablet 88 mcg PO DAILY 02/08/24 02/09/24 History metolazone 2.5 mg tablet 2.5 mg PO UD 02/08/24 02/09/24 History metoprolol tartrate 50 mg tablet 50 mg PO TID 02/08/24 02/09/24 History multivitamin,ej-zqap-Zw-FA-min 1 tab PO DAILY 02/08/24 02/09/24 History nystatin 1 applic EXT UD 02/08/24 02/09/24 History omeprazole 20 mg capsule,delayed 20 mg PO DAILY 02/08/24 02/09/24 History release oxycodone 10 mg tablet 20 mg PO Q4H PRN Pain, Severe 02/08/24 02/09/24 History potassium chloride 20 mEq 20 meq PO BID 02/08/24 02/09/24 History tablet,extended release(part/cryst) pregabalin 50 mg capsule 50 mg PO BID 02/08/24 02/09/24 History sitagliptin phosphate 50 mg tablet 50 mg PO DAILY 02/08/24 02/09/24 History (Januvia) sennosides 8.6 mg-docusate sodium 2 tab-cap PO HS 02/09/24 02/09/24 History 50 mg tablet (Senna-S) spironolactone 25 mg tablet 25 mg PO DAILY 02/09/24 02/09/24 History torsemide 60 mg PO DAILY 02/09/24 02/09/24 History triamcinolone acetonide 0.1 % 1 applic topical TID 02/09/24 02/09/24 History lotion warfarin 3 mg tablet 3 mg PO DAILY 02/09/24 02/09/24 History Past Med/Surg History Problem List (Updated 02/09/24 @ 02:32 by Erna Erazo MD) Adult failure to thrive (Acute) Diabetes (Acute) Wound, open, foot with complication (Acute) History of ventricular tachycardia Persistent atrial fibrillation Acute on chronic combined systolic and diastolic CHF (congestive heart failure) 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 (Acute) Leg wound, right Cellulitis of right leg (Acute) PVD (peripheral vascular disease) (Acute) 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 (Acute) Infected abrasion of right leg Morbid obesity H/O osteomyelitis CKD (chronic kidney disease) stage 3, GFR 30-59 ml/min (Chronic) Asthma (Chronic) NINA on CPAP (Chronic) Ischemic cardiomyopathy (Chronic) Hypothyroidism (Chronic) History of diabetic ulcer of foot (Chronic) Cardiac defibrillator in situ (Chronic) 2007 with replacement 03/2020. follows with Dr. Maya. 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) (Chronic) Peripheral arterial disease (Chronic) History of COVID-19 (Chronic) History of amputation of left foot (Chronic) Adjustment disorder with mixed disturbance of emotions and conduct MDD (major depressive disorder), recurrent episode, mild Medical History Sustained ventricular tachycardia Depression with suicidal ideation Acute osteomyelitis of left foot Peripheral arterial disease T2DM (type 2 diabetes mellitus) CHF (congestive heart failure) Acute on chronic combined systolic (congestive) and diastolic (congestive) heart failure Diabetic ulcer of right foot Pneumonia due to COVID-19 virus SARS-CoV-2 positive Sepsis Cellulitis of left lower leg Diabetic ulcer of left heel associated with diabetes mellitus due to underlying condition, limited to breakdown of skin Acute on chronic renal failure Acute hypoxemic respiratory failure Sleep apnea Rectal bleeding Depression Diabetes type 2, uncontrolled Vitamin D deficiency Diabetic peripheral neuropathy associated with type 2 diabetes mellitus Deformity of foot Adams fracture Dyslipidemia Hypertension Diabetic ulcer of left foot associated with type 2 diabetes mellitus, with fat layer exposed Hx of sepsis Arthritis CAD (coronary artery disease) Venous stasis ulcer of right lower leg with edema of right lower leg Hypokalemia Bacteremia due to group B Streptococcus Lymphedema Sustained VT (ventricular tachycardia) GERD (gastroesophageal reflux disease) Hx of osteomyelitis Hx of myocardial infarction Asthma Cardiac defibrillator in situ CKD (chronic kidney disease) stage 3, GFR 30-59 ml/min Morbid obesity H/O osteomyelitis History of diabetic ulcer of foot Hypothyroidism Ischemic cardiomyopathy Surgical History History of esophagogastroduodenoscopy (EGD) H/O foot surgery H/O cardiac radiofrequency ablation History of cardiac cath History of sinus surgery Hx of tonsillectomy History of colonoscopy Hx of amputation of lesser toe H/O shoulder surgery Family History Sister Family history of diabetes mellitus 2 Grandmother (Maternal) Family history of diabetes mellitus Grandfather (Maternal) Family history of diabetes mellitus Father Cancer Mother Cancer Other No family history of adverse response to anesthesia Social History Smoking Status: Never smoker Second Hand Exposure: No; Do You Dip or Chew Tobacco: No; Hx Alcohol Use: Yes Alcohol type: hard liquor Hx Substance Use: No Preferred Language: Slovenian Communication Ability: Effective Log Cooker Required: No Beliefs That Will Affect Care: None marital status: Current Living Situation: Alone current occupational status: disabled How many Children do You have: 3 Feels Safe at Home: Yes Safety Concerns: Feels Safe At This Time Assistive Devices: CPAP, Prosthesis and Wheelchair Review of Systems Review of Systems: All systems reviewed & are unremarkable except as noted in HPI & below Physical Exam Physical Exam: General- adult Head- atraumatic Eyes- PERRL. ENT- oropharynx clear Neck- supple, no JVD. Lungs- clear to auscultation no wheezing or crackles Heart- regular rhythm; no murmur, no gallop. Abdomen- normal bowel sounds, soft, nontender, no distension Extremities- left BKA. Right lower extremity swollen and erythematous. mild drainage seen in mcknight region. right foot wound vac seen Neuro- alert, oriented PERRL, no facial palsy; no dysarthria Results & Data Results & Data Vital Signs (Past 12 Hours) Vital Signs Temp Pulse Resp BP Pulse Ox O2 Del Method 02/08/24 23:39 90 02/08/24 23:30 95 H 17 116/79 94 Room Air 02/08/24 23:03 87 16 90/72 L 96 Room Air 02/08/24 22:00 106/63 02/08/24 21:36 80 22 103/71 92 Room Air 02/08/24 21:03 92 H 24 111/64 96 Room Air 02/08/24 20:30 83 26 H 106/57 L 93 Room Air 02/08/24 20:21 114/71 02/08/24 20:21 114/71 02/08/24 20:06 83 17 94 Room Air 02/08/24 19:43 77 02/08/24 19:24 87 23 114/69 94 Room Air 02/08/24 19:23 36.8 C 84 18 114/69 98 Room Air Diagnostic Findings Laboratory Results WBC 8.53 K/ul (4.8-10.8) 02/08/24 19: RBC 5.17 M/uL (4.70-6.10) 02/08/24 19: Hgb 14.0 g/dl (14.0-18.0) 02/08/24 19: Hct 43.9 % (42.0-52.0) 02/08/24 19: MCV 84.9 fL (80.0-100.0) 02/08/24 19: MCH 27.1 pg (25.0-34.0) 02/08/24 19: MCHC 31.9 g/dL (32.0-36.0) L 02/08/24: RDW Std Deviation 57.1 fL (36.4-46.3) H 02/08/24: RDW Coeff of Мария 18.7 % (11.5-14.5) H 02/08/24 19: Plt Count 345 K/uL (130-400) 02/08/24: MPV 9.3 fL (9.4-12.4) L 02/08/24: Immature Gran % (Auto) 0.8 % 02/08/24: Neut % (Auto) 74.6 % 02/08/24: Lymph % (Auto) 6.3 % 02/08/24: [place] % (Auto) 15.6 % 02/08/24 19: Eos % (Auto) 1.9 % 02/08/24: Baso % (Auto) 0.8 % 02/08/24: Neut # (Auto) 6.36 K/uL (1.40-6.50) 02/08/24 19: Lymph # (Auto) 0.54 K/uL (1.20-3.40) L 02/08/24 19: [place] # (Auto) 1.33 K/uL (0.11-0.59) H 02/08/24 19: Eos # (Auto) 0.16 K/uL (0.00-0.50) 02/08/24 19:28 Baso # (Auto) 0.07 K/uL (0.00-0.20) 02/08/24 19:28 Immature Gran # (Auto) 0.07 K/uL (0.01-0.20) 02/08/24 19:28 Sodium 132 mmol/L (136-145) L 02/08/24 19:28 Potassium 3.4 mmol/L (3.5-5.1) L 02/08/24 19:28 Chloride 91 mmol/L (98-107) L 02/08/24 19:28 Carbon Dioxide 31 mmol/L (21-32) 02/08/24 19:28 Anion Gap 10 (3-11) 02/08/24 19:28 BUN 50 mg/dl (6-23) H 02/08/24 19:28 Creatinine 1.71 mg/dl (0.6-1.4) H 02/08/24 19:28 Est Cr Clr Drug Dosing 73.4 ml/min 02/08/24 19:28 eGFR 45.26 02/08/24 19:28 BUN/Creatinine Ratio 29.2 (10-20) H 02/08/24 19:28 Glucose 198 mg/dl (70-99(Fasting)) H 02/08/24 19:28 Calcium 9.1 mg/dl (8.6-10.3) 02/08/24 19:28 Total Bilirubin 1.6 mg/dl (0.2-1.0) H 02/08/24 19:28 AST 27 U/L (13-39) 02/08/24 19:28 ALT 9 U/L (7-52) 02/08/24 19:28 Alkaline Phosphatase 100 U/L (34-104) 02/08/24 19:28 Total Protein 8.8 gm/dl (6.0-8.3) H 02/08/24 19:28 Albumin 3.2 gm/dl (3.4-5.0) L 02/08/24 19:28 Globulin 5.6 gm/dl (2.5-4.0) H 02/08/24 19:28 Albumin/Globulin Ratio 0.6 (0.9-2) L 02/08/24 19:28 Code Status & VTE Plan VTE Prophylaxis Plan VTE Prophylaxis will be ordered: Yes
[2024-02-09] MEDS ORDERED: DEXTROSE 50% 50 ML SYRINGE IV PRN (03:09)
[2024-02-09] MEDS ORDERED: NITROGLYCERIN SL 0.4 MG/TAB TAB SL PRN (03:09)
[2024-02-09] MEDS ORDERED: GLUCAGON FOR INJ 1 MG VIAL SQ PRN (03:09)
[2024-02-09] MEDS ORDERED: CARBOHYDRATES FOR HYPOGLYCEMIA PO PRN (03:09)
[2024-02-09] MEDS ORDERED: PHARMACY GLYCEMIC MGMT CONSULT PRN (03:09)
[2024-02-09] MEDS ORDERED: GLUCOSE 10 TAB/TUBE PO PRN (03:09)
[2024-02-09] MEDS ORDERED: GLUCOSE 40% GEL 15 GM TUBE PO PRN (03:09)
[2024-02-09] MEDS ORDERED: HYOSCYAMINE SULFATE 0.125 MG TAB PO PRN (03:09)
[2024-02-09] MEDS: oxyCODONE HCL IR 5 MG TAB (IMMEDIATE RELEASE) PO PRN (05:15)
[2024-02-09] MEDS: INSULIN ASPART PER UNIT CHARGE SC SCH (05:28)
[2024-02-09 06:05] LABS: Basophils # (auto) 0.07 K/uL (0.00-0.20); Basophils % (auto) 0.9 %; Eosinophils # (auto) 0.24 K/uL (0.00-0.50); Eosinophils % (auto) 3.1 %; Hematocrit (blood only) 39.5 % (42.0-52.0); Hemoglobin 13.2 g/dl (14.0-18.0); Immature Granulocytes # (auto) 0.04 K/uL (0.01-0.20); Immature Granulocytes % (auto) 0.5 %; Lymphocytes # (auto) 0.82 K/uL (1.20-3.40); Lymphocytes % (auto) 10.7 %; Mean Corpuscular Hemoglobin 27.7 pg (25.0-34.0); Mean Corpuscular Hgb Conc 33.4 g/dL (32.0-36.0); Mean Platelet Volume 9.2 fL (9.4-12.4); Monocytes # (auto) 1.45 K/uL (0.11-0.59); Monocytes % (auto) 18.9 %; Neutrophils # (auto) 5.06 K/uL (1.40-6.50); Neutrophils % (auto) 65.9 %; Platelet Count 319 K/uL (130-400); RDW Coefficient of Variation 18.5 % (11.5-14.5); RDW Standard Deviation 54.5 fL (36.4-46.3); Red Blood Count 4.76 M/uL (4.70-6.10); White Blood Count 7.68 K/ul (4.8-10.8)
[2024-02-09 06:08] LABS: BUN Creatinine Ratio 36.4 (10-20); Calcium 8.7 mg/dl (8.6-10.3); Creatinine Clr Calc Pharmacy 89.7 ml/min; Magnesium 1.6 mg/dl (1.7-2.4); Potassium 2.8 mmol/L (3.5-5.1)
[2024-02-09 06:18] LABS: INR 1.8 (0.9-1.1); Prothrombin Time 18.7 Seconds (9.0-12.0)
[2024-02-09 07:14] LABS: Estimated Average Glucose 169 mg/dl; Hemoglobin A1C 7.5 % (4.5-5.6)
[2024-02-09] MEDS: LEVOTHYROXINE SODIUM 88 MCG TABLET PO SCH (07:22)
[2024-02-09] MEDS: ACETAMINOPHEN 325 MG TAB PO PRN (07:47)
[2024-02-09] MEDS: VANCOMYCIN HCL 1,500 MG in SODIUM CHLORIDE 0.9% 500 ML IV SCH (07:48)
[2024-02-09] MEDS: CEFEPIME 2000MG 2,000 MG/20 ML SYR IV SCH (07:48)
[2024-02-09] MEDS ORDERED: ACETAMINOPHEN 325 MG TAB PO PRN (08:20)
--- NOTE | 2024-02-09 08:23 | XRay Report ---
XR foot RT min 3V routine CLINICAL HISTORY: Wound, osteo TECHNIQUE: 2 views of the right foot were obtained. Comparison: Comparison is made to foot radiographs 05/18/2023 FINDINGS: Postsurgical changes of first digit amputation are again seen. There may be a small area of bony eros ion the mid distal portion of the proximal phalanx of the first digit. Degenerative changes are seen. Soft tissue swelling is seen about the foot. An ulcer seen at the heel with underlying bony remodeli ng. IMPRESSION: Tiny questionable bone erosion is seen in the distal aspect of the first digit proximal phalanx. Ther e is also irregular bony remodeling about the heel at the level of a large soft tissue ulcer. Osteomy elitis cannot be excluded, if further evaluation is desired, MRI can be performed. ACT 112: Negative or not required by law. Electronically signed by: Fabrizio Pacheco M.D. 02/09/2024 8:20 AM
[2024-02-09] MEDS ORDERED: NYSTATIN POWDER 15GM BTL EXT PRN (08:32)
[2024-02-09] MEDS ORDERED: LANTUS PER UNIT CHARGE SC SCH (09:00)
[2024-02-09] MEDS: PREGABALIN 50 MG CAP PO SCH (09:20)
[2024-02-09] MEDS: POTASSIUM CHLORIDE CRTAB 20 MEQ TABCR PO STA (09:20)
[2024-02-09] MEDS: MAGNESIUM OXIDE 400 MG TAB PO SCH (09:20)
[2024-02-09] MEDS: TORSEMIDE 20 MG TAB PO SCH (09:21)
[2024-02-09] MEDS: HEPARIN SOD 5,000 UNIT/0.5 ML VIAL SQ SCH (09:21)
[2024-02-09] MEDS: ASPIRIN 81 MG ECTAB PO SCH (09:22)
[2024-02-09] MEDS: CEROVITE ADV FORMULA TAB PO SCH (09:22)
[2024-02-09] MEDS: FERROUS SULFATE 325 MG TAB PO SCH (09:22)
[2024-02-09] MEDS: PANTOprazole 40 MG TAB PO SCH (09:22)
[2024-02-09] MEDS: ATORVASTATIN 40 MG TAB PO SCH (09:23)
[2024-02-09] MEDS: METOPROLOL TARTRATE 50 MG TAB PO SCH (09:23)
--- NOTE | 2024-02-09 10:44 | Communication Note ---
Date of Service: February 09, 2024 evaluated patient at bedside. reports that he has had ongoing issues with infection and "not getting the right care" States his leg has been swelling "ALOT" over the last few weeks and is uncomfortable Worries about loosing his leg Exam performed after wound vac removed Irregularly irregular, diminshed breath sounds, beefy/dusky discoloration of R LE, 3+ pitting edema, multiple exoriations on RLE, ~50% of plantar surface to muscle/bone, minimal granulation tissue, notable foul order, pulses dopplerable--limited 2/2 edema; LLE stump without pressure wounds, some dependent edema on posterior surface #Severe RLE venous insufficiency ulceration #Osteomyelitis right calcaneus debrided at OP podiatry clinic, wound vac placed evaluated wound at bedside with wound care nurse: unclear healing ability with wound vac alone, minimal granulation noted, large area exposed -Podiatry consulted, appreciated recommendations -Vascular consulted given concern for ongoing venous reflux/insufficency contributing -Continue vanc -Broadened to zosyn given prior cultures -Will hold on PICC in case surgical intervention for source control performed #Acute on Chronic HFrEF #HX VT s/p AICD severe progressive pitting RLE edema--2/2 dietary noncompliance, infection, etc; stable oxygenation at this time LVEF 35 to 39%, 05/2022. Strict I&O. daily weights Patient adamantly refuses low sodium diet, will "not EAT" diet transitioned against medical advice given disruption of patient care, agreed to fluid restriction - Home diuretics: torsemide 60mg daily with metolazone augmentation 3xwk GDMT: *BetaB: continue metoprolol 50XL BID *RAAS: seems to have previously been on entresto but held 2/2 low BP previously *Guevara: Hold iso renal dysfunction, allow for aggresive IV diuersis *SGLT: plan to discuss once optimized, stable renal function *ICD: in place, no reported discharges - Will start aggressive diuresis with 3mg BUMEX IV, will repeat lytes q12 and replace; will assess renal functions and plan for Bumex 3mg BID for now as renal function tolerates #Persistent AFIB: Continue metoprolol succinate 50 mg BID Hold coumadin for surgical planning rest of plan per hp
[2024-02-09] MEDS: LANTUS PER UNIT CHARGE SC ONE ×2 (10:53→22:48)
--- NOTE | 2024-02-09 12:25 | Pharmacy Report ---
Pharmacy Glycemic Short Note 2 - Date of Service February 09, 2024 - Glycemic Short BSG Results (Last 24 hours): 02/08/24 02/09/24 02/09/24 19:28 02:15 05:21 Glucose 198 H 169 H POC Glucose 184 H 170 H 02/09/24 07:28 Glucose POC Glucose 80 OUTPATIENT ANTIDIABETIC REGIMEN: * Lantus 40 units SC BID * Novolog 10 units SC AC * Januvia * HbA1c 7.5% on 02/09/24 ASSESSMENT: * 58 yo M w T2DM known to our glycemic service from lengthy admission in Apr-May 2023 admitted 02/07 w diabetic foot infection and suspected osteomyelitis. * Outpatient regimen is basal heavy. Prior inpatient regimen reviewed - anticipated inpatient daily dose ~50-60 units/day. Will split BID to be c/w outpatient schedule * AM fasting BSG low at 80 units. Unclear if this is due to correctional insulin overnight or higher outpatient Lantus dose. Will loosen correction factor and reduce Lantus this AM. * Will tighten CHO ratio, although this will still be slightly looser than previous admit. Minimal PO intake with breakfast therefore not able to assess impact of this change. PLAN FOR INPATIENT GLYCEMIC CONTROL: * Hold outpatient oral diabetes medications * Basal insulin * Lantus 20 units SQ x1 this AM, then 30-40 units SC this PM * Bolus insulin * NovoLog per scale ACHS or Q6hrs while NPO * Goal Range: Low 110 mg/dL - High 140 mg/dL * Correction Factor: 20 mg/dL/unit * Nutritional / Prandial insulin per carb ratio of 1 unit per 4 grams CHO consumed
[2024-02-09] MEDS: 4.5GM X1 IV ONE (12:27)
--- NOTE | 2024-02-09 12:47 | Ultrasound Report ---
US venous doppler LE RT CLINICAL HISTORY: necrotic 2nd digit TECHNIQUE: Right lower extremity real-time compression venous ultrasound with Color Doppler imaging. Utilizing real-time ultrasonic imaging multiple real time high-resolution ultrasonic images with comp ression and noncompression maneuvers of the deep venous system in addition to color doppler imaging w ere performed from the common femoral vein through the proximal calf veins. COMPARISON: Comparison is made to right lower extremity Doppler ultrasound 06/01/2019 FINDINGS/IMPRESSION: Highly limited study with no evaluation of the distal popliteal vein or calf veins due to body habitu s. No obvious deep venous thrombus is seen. Soft tissue edema is noted. ACT 112: Negative or not required by law. Electronically signed by: Fabrizio Pacheco M.D. 02/09/2024 12:46 PM
[2024-02-09] MEDS: POTASSIUM CHLORIDE CRTAB 20 MEQ TABCR PO SCH (14:06)
[2024-02-09] MEDS: DAPTOmycin 675 MG in SYRINGE 0 ML IV SCH (14:07)
--- NOTE | 2024-02-09 14:17 | CT Scan Report ---
CT foot RT wo con CLINICAL HISTORY: Osteomyelitis TECHNIQUE: Multidetector row helical CT of the right foot was performed without intravenous contrast. Coronal and sagittal reformations were obtained. Automated dose lowering techniques and/or adjustmen t according to patient size were utilized for this examination. CT DOSE: 707.98 mGy.cm Comparison: Comparison is made to foot radiographs 02/08/[address] right foot 02/24/2024 FINDINGS: The defect in the right first digit proximal phalanx is unchanged from prior exam. However there are irregular erosions about the heel with a small amount of bony fragmentation. Prominent degenerative c hanges are seen in the mid foot. Prominent soft tissue thickening is seen without drainable fluid col lections. A large ulcer seen in the heel. IMPRESSION: Findings compatible with osteomyelitis about a large heel ulcer. No drainable abscess is seen. ACT 112: Negative or not required by law. Electronically signed by: Fabrizio Pacheco M.D. 02/09/2024 2:16 PM
[2024-02-09] MEDS: BUMETANIDE 3 MG in SYRINGE 0 ML IV ONE (15:07)
--- NOTE | 2024-02-09 17:10 | Podiatry Consultation ---
Date of Consultation February 09, 2024 Assessment & Plan (1) Wound, open, foot with complication: Encounter type: initial encounter Laterality: right Qualified Code(s): S91.301A - Unspecified open wound, right foot, initial encounter (2) Leg wound, right: Encounter type: initial encounter Qualified Code(s): S81.801A - Unspecified open wound, right lower leg, initial encounter (3) Cellulitis of right leg: (4) PVD (peripheral vascular disease): (5) 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: (6) H/O osteomyelitis: (7) Osteomyelitis of foot, right, acute: Plan patient examined and evaluated. We discussed at length the etiology and treatment of his right calcaneus ulceration. This does seem fairly advanced with clinical evidence of osteomyelitis, suggested on plain film imaging as well. CT scan was ordered to help rule this in or out as well. He could benefit from continued use of the wound VAC, though with severe underlying osteomyelitis and peripheral arterial disease, this may prove to be ineffective. He could continue with Betadine wet-to-dry dressings or conservative wound care similarly prior to more definitive treatment. If he would like to attempt limb salvage, we can schedule him for a wound debridement with excision of infected, nonviable bone and a partial calcanectomy on . A referral was sent in for vascular consult as well, and if they are unable to maximize his blood flow, he may simply elect for a higher amputation. Prognosis remains guarded overall. We will continue to follow for now. History of Present Illness Attending Physician: Pamela Yang MD History of Present Illness Patient seen at bedside. Is a longstanding patient of podiatry in [place] and has had wound vac in place for a long time, with regular changes. Has recently been in living facility locally, who noted failure of the wound to improve. 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 He states he has been scheduled to see vascular surgery in [place] later this month, but has been admitted here instead. Denies any systemic signs or symptoms of infection at this time but has felt "under the weather" recently. Is just arriving back into his room from arterial doppler at the time of exam. Allergies Allergy/AdvReac Type Severity Reaction Status Date / Time benzonatate AdvReac Intermediate choking, Verified 01/07/24 13:17 gagging Home Medications Medication Instructions Recorded Confirmed Type Claudia Solostar U-100 Insulin 40 units SC BID 02/08/24 02/09/24 History acetaminophen 325 mg tablet 650 mg PO QID PRN Pain 02/08/24 02/09/24 History (Tylenol) aspirin 81 mg tablet,delayed 81 mg PO DAILY 02/08/24 02/09/24 History release atorvastatin 80 mg tablet 80 mg PO DAILY 02/08/24 02/09/24 History bisacodyl 10 mg rectal suppository 10 mg AL DAILY PRN Constipation 02/08/24 02/09/24 History (Dulcolax (bisacodyl)) cefepime 2 gram solution for 2 g IV BID 02/08/24 02/09/24 History injection ergocalciferol (vitamin D2) 50,000 50,000 unit PO WK 02/08/24 02/09/24 History unit tablet ferrous sulfate 325 mg (65 mg 325 mg PO BID 02/08/24 02/09/24 History iron) tablet hyoscyamine sulfate 0.125 mg tablet 0.125 mg PO Q4H PRN Abdominal Pain 02/08/24 02/09/24 History insulin aspart U-100 100 unit/mL 10 unit subcut AC 02/08/24 02/09/24 History subcutaneous solution (Novolog U-100 Insulin aspart) levothyroxine 88 mcg tablet 88 mcg PO DAILY 02/08/24 02/09/24 History metolazone 2.5 mg tablet 2.5 mg PO UD 02/08/24 02/09/24 History metoprolol tartrate 50 mg tablet 50 mg PO TID 02/08/24 02/09/24 History multivitamin,zp-gjit-Dj-FA-min 1 tab PO DAILY 02/08/24 02/09/24 History nystatin 1 applic EXT UD 02/08/24 02/09/24 History omeprazole 20 mg capsule,delayed 20 mg PO DAILY 02/08/24 02/09/24 History release oxycodone 10 mg tablet 20 mg PO Q4H PRN Pain, Severe 02/08/24 02/09/24 History potassium chloride 20 mEq 20 meq PO BID 02/08/24 02/09/24 History tablet,extended release(part/cryst) pregabalin 50 mg capsule 50 mg PO BID 02/08/24 02/09/24 History sitagliptin phosphate 50 mg tablet 50 mg PO DAILY 02/08/24 02/09/24 History (Januvia) sennosides 8.6 mg-docusate sodium 2 tab-cap PO HS 02/09/24 02/09/24 History 50 mg tablet (Senna-S) spironolactone 25 mg tablet 25 mg PO DAILY 02/09/24 02/09/24 History torsemide 60 mg PO DAILY 02/09/24 02/09/24 History triamcinolone acetonide 0.1 % 1 applic topical TID 02/09/24 02/09/24 History lotion warfarin 3 mg tablet 3 mg PO DAILY 02/09/24 02/09/24 History Patient History Medical History Sustained ventricular tachycardia Depression with suicidal ideation Acute osteomyelitis of left foot Peripheral arterial disease T2DM (type 2 diabetes mellitus) CHF (congestive heart failure) Acute on chronic combined systolic (congestive) and diastolic (congestive) heart failure Diabetic ulcer of right foot Pneumonia due to COVID-19 virus SARS-CoV-2 positive Sepsis Cellulitis of left lower leg Diabetic ulcer of left heel associated with diabetes mellitus due to underlying condition, limited to breakdown of skin Acute on chronic renal failure Acute hypoxemic respiratory failure Sleep apnea Rectal bleeding Depression Diabetes type 2, uncontrolled Vitamin D deficiency Diabetic peripheral neuropathy associated with type 2 diabetes mellitus Deformity of foot Adams fracture Dyslipidemia Hypertension Diabetic ulcer of left foot associated with type 2 diabetes mellitus, with fat layer exposed Hx of sepsis Arthritis CAD (coronary artery disease) Venous stasis ulcer of right lower leg with edema of right lower leg Hypokalemia Bacteremia due to group B Streptococcus Lymphedema Sustained VT (ventricular tachycardia) GERD (gastroesophageal reflux disease) Hx of osteomyelitis Hx of myocardial infarction Asthma Cardiac defibrillator in situ CKD (chronic kidney disease) stage 3, GFR 30-59 ml/min Morbid obesity H/O osteomyelitis History of diabetic ulcer of foot Hypothyroidism Ischemic cardiomyopathy Surgical History History of esophagogastroduodenoscopy (EGD) H/O foot surgery H/O cardiac radiofrequency ablation History of cardiac cath History of sinus surgery Hx of tonsillectomy History of colonoscopy Hx of amputation of lesser toe H/O shoulder surgery Family History Sister Family history of diabetes mellitus 2 Grandmother (Maternal) Family history of diabetes mellitus Grandfather (Maternal) Family history of diabetes mellitus Father Cancer Mother Cancer Other No family history of adverse response to anesthesia Social History Smoking Status: Never smoker Second Hand Exposure: No; Do You Dip or Chew Tobacco: No; Hx Alcohol Use: Yes Alcohol type: hard liquor Hx Substance Use: No Preferred Language: Bengali Communication Ability: Effective Residential Leasing Manager Required: No Beliefs That Will Affect Care: None marital status: Current Living Situation: Alone current occupational status: disabled How many Children do You have: 3 Feels Safe at Home: Yes Safety Concerns: Feels Safe At This Time Assistive Devices: CPAP, Prosthesis and Wheelchair Review of Systems Review of Systems: All systems reviewed & are unremarkable except as noted in HPI & below Constitutional: + fever, + chills and + weakness; no fat igue Eyes: no problem reported Ear, Nose, Mouth, Throat: no problem reported Respiratory: no problem reported Cardiovascular: + edema; no problem reported Gastrointestinal: no nausea, no vomiting and no problem reported Musculoskeletal: + deformity, + limited range of motion a nd + muscle weakness Integumentary: + non-healing lesions, + changing lesion s, + skin ulcer, + wounds and + erythema Neurologic: + loss of sensation, + numbness and + pa resthesia; no generalized weakness Psychiatric: no problem reported Physical Exam Physical Exam: RLE focused exam: DP/PT pulses non palpable. +3 pitting edema with chronic venous stasis noted throughout lower extremity. Extensive ulceration noted to right calcaneus. Wound is irregular in shape, directly underlying calcaneus. Measures [id number] in largest dimensions. Wound bed is 100% fibrotic and necrotic, with calcaneal bone visualized centrally. Wound margins are rolled; no viable wound base appreciated. Smaller dry wounds noted to multiple lesser digits, consistent with arterial disease. No benedict purulence exuding from wound, minimal malodor, but extensive erythema to lower extremity in total. Constitutional: WD/WN, vitals as above + ill appearing and + morbidly obese; no acute distress Eyes: PERRL, conjunctivae normal, anicteric sclerae ENMT: external ear and nose normal, oropharynx normal Neck: trachea midline, no thyromegaly normal visual inspection Respiratory: normal respiratory effort; no respiratory distress Cardiovascular: Rate/Rhythm: regular rate and regular rhythm Chest (Breasts): Chest: normal inspection of chest Gastrointestinal (Abdomen): Inspection/Auscultation: abdomen normal to inspection Percussion/Palpation: + abdomen tender and abdomen soft Musculoskeletal: no cyanosis or clubbing, extremities motor strength 5/5 Head/Neck/Chest: normocephalic and head atraumatic Extremities: + amputation noted (Left BKA) Skin: + ulcer, + skin tightening, + wound, + s kin atrophy and + erythema Neurologic: awake; + abnormal touch/pain/proprioception, + abnormal sensation to monofilament and no focal motor deficits Psychiatric: A+Ox3, euthymic affect Results & Data Vital Signs (Past 12 Hours) Vital Signs Temp Pulse Pulse Resp BP Pulse Ox O2 Del Method 02/09/24 08:30 82 02/09/24 08:00 36.6 C 87 18 146/65 H 98 Room Air
[2024-02-09] MEDS: PIPERACILLIN/TAZOBACTAM 4.5 GM/100 ML BAG IV SCH (17:26)
--- NOTE | 2024-02-09 17:59 | Vascular Medicine Consultation ---
Date of Consultation February 09, 2024 Assessment & Plan (1) 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: 2. Osteomyelitis 3. PADsuspected inflow disease 4. Venous ulceration 5. CVI/lymphedema 6. HFrEF 7. Permanent AF on anticoagulation 8. Post prior left BKA 9. Morbid obesity 10. Stage III CKD Patient has deep right heel ulceration with evidence of osteomyelitis. Current ulceration is high risk for limb loss. Current arterial duplex reviewed. Monophasic waveforms throughout suggestive of potential inflow disease. Prior toe pressure 05/2023 was consistent with adequate perfusion for wound healing but unsure about flow to heal. Also has significant edema and venous ulceration involving right anterior mcknight. Likely primarily due to lymphedema. May have some contribution from venous insufficiency, previously noted to have right SSV residual reflux. If proceeding with further attempts at limb salvage recommend right lower extremity angiogram and possible intervention to optimize distal perfusion Could potentially do angiogram via RT radial artery on Thursday Do not feel venous disease is contributing to heal ulcer but venous ablation could benefit leg swelling and mcknight ulcer healing/prevention. Could be considered while inpatient sometime after angiogram. Regardless if has ablation will need continued compressive therapy, diuretics. Will follow History of Present Illness Attending Physician: Pamela Yang MD History of Present Illness Mr. Lyle is a 58-year-old man with type II DM seen today in hospital for nonhealing lower extremity wounds in the setting of PAD and venous insufficiency. He has a history of lymphedema, venous insufficiency post right GSV RFA 08/2016 and prior diabetic foot wounds complicated by osteomyelitis post left BKA. Also close partial amputation of distal aspect right great toe. Complex cardiac history including HFrEF EF 35% post ICD, VT post ablation, persistent AF on Coumadin, hypertension, stage III CKD, morbid obesity and NINA on BiPAP. Has had longstanding ulcer involving plantar aspect of right heel for months followed by podiatry. Intermittently on antibiotics, previously had wound VAC. Due deterioration of wound sent from [facility] for possible IV antibiotics. Has also had worsening right lower extremity edema with superficial mcknight ulcer despite high-dose home diuretics. CT of right foot today shows osteomyelitis involving large heel ulcer. Prior vascular studies: Venous Doppler 01/2024: Negative for DVT Arterial duplex 01/2024: Monophasic waveforms throughout right lower extreme arterial system with patent distal ANNE-MARIE/DPA flow, patent proximal [employer]/peroneal. Arterial duplex 05/2023: TBI 0.84 (105) Venous reflux study 08/2017: Right GSV appropriately closed. Right SSV dilated with reflux (3.5, 1500) Allergies Allergy/AdvReac Type Severity Reaction Status Date / Time benzonatate AdvReac Intermediate choking, Verified 01/07/24 13:17 gagging Home Medications Medication Instructions Recorded Confirmed Type Lantus Solostar U-100 Insulin 40 units SC BID 02/08/24 02/09/24 History acetaminophen 325 mg tablet 650 mg PO QID PRN Pain 02/08/24 02/09/24 History (Tylenol) aspirin 81 mg tablet,delayed 81 mg PO DAILY 02/08/24 02/09/24 History release atorvastatin 80 mg tablet 80 mg PO DAILY 02/08/24 02/09/24 History bisacodyl 10 mg rectal suppository 10 mg HI DAILY PRN Constipation 02/08/24 02/09/24 History (Dulcolax (bisacodyl)) cefepime 2 gram solution for 2 g IV BID 02/08/24 02/09/24 History injection ergocalciferol (vitamin D2) 50,000 50,000 unit PO WK 02/08/24 02/09/24 History unit tablet ferrous sulfate 325 mg (65 mg 325 mg PO BID 02/08/24 02/09/24 History iron) tablet hyoscyamine sulfate 0.125 mg tablet 0.125 mg PO Q4H PRN Abdominal Pain 02/08/24 02/09/24 History insulin aspart U-100 100 unit/mL 10 unit subcut AC 02/08/24 02/09/24 History subcutaneous solution (Novolog U-100 Insulin aspart) levothyroxine 88 mcg tablet 88 mcg PO DAILY 02/08/24 02/09/24 History metolazone 2.5 mg tablet 2.5 mg PO UD 02/08/24 02/09/24 History metoprolol tartrate 50 mg tablet 50 mg PO TID 02/08/24 02/09/24 History multivitamin,xa-nqzo-Co-FA-min 1 tab PO DAILY 02/08/24 02/09/24 History nystatin 1 applic EXT UD 02/08/24 02/09/24 History omeprazole 20 mg capsule,delayed 20 mg PO DAILY 02/08/24 02/09/24 History release oxycodone 10 mg tablet 20 mg PO Q4H PRN Pain, Severe 02/08/24 02/09/24 History potassium chloride 20 mEq 20 meq PO BID 02/08/24 02/09/24 History tablet,extended release(part/cryst) pregabalin 50 mg capsule 50 mg PO BID 02/08/24 02/09/24 History sitagliptin phosphate 50 mg tablet 50 mg PO DAILY 02/08/24 02/09/24 History (Januvia) sennosides 8.6 mg-docusate sodium 2 tab-cap PO HS 02/09/24 02/09/24 History 50 mg tablet (Senna-S) spironolactone 25 mg tablet 25 mg PO DAILY 02/09/24 02/09/24 History torsemide 60 mg PO DAILY 02/09/24 02/09/24 History triamcinolone acetonide 0.1 % 1 applic topical TID 02/09/24 02/09/24 History lotion warfarin 3 mg tablet 3 mg PO DAILY 02/09/24 02/09/24 History Patient History Medical History Sustained ventricular tachycardia Depression with suicidal ideation Acute osteomyelitis of left foot Peripheral arterial disease T2DM (type 2 diabetes mellitus) CHF (congestive heart failure) Acute on chronic combined systolic (congestive) and diastolic (congestive) heart failure Diabetic ulcer of right foot Pneumonia due to COVID-19 virus SARS-CoV-2 positive Sepsis Cellulitis of left lower leg Diabetic ulcer of left heel associated with diabetes mellitus due to underlying condition, limited to breakdown of skin Acute on chronic renal failure Acute hypoxemic respiratory failure Sleep apnea Rectal bleeding Depression Diabetes type 2, uncontrolled Vitamin D deficiency Diabetic peripheral neuropathy associated with type 2 diabetes mellitus Deformity of foot Adams fracture Dyslipidemia Hypertension Diabetic ulcer of left foot associated with type 2 diabetes mellitus, with fat layer exposed Hx of sepsis Arthritis CAD (coronary artery disease) Venous stasis ulcer of right lower leg with edema of right lower leg Hypokalemia Bacteremia due to group B Streptococcus Lymphedema Sustained VT (ventricular tachycardia) GERD (gastroesophageal reflux disease) Hx of osteomyelitis Hx of myocardial infarction Asthma Cardiac defibrillator in situ CKD (chronic kidney disease) stage 3, GFR 30-59 ml/min Morbid obesity H/O osteomyelitis History of diabetic ulcer of foot Hypothyroidism Ischemic cardiomyopathy Surgical History History of esophagogastroduodenoscopy (EGD) H/O foot surgery H/O cardiac radiofrequency ablation History of cardiac cath History of sinus surgery Hx of tonsillectomy History of colonoscopy Hx of amputation of lesser toe H/O shoulder surgery Family History Sister Family history of diabetes mellitus 2 Grandmother (Maternal) Family history of diabetes mellitus Grandfather (Maternal) Family history of diabetes mellitus Father Cancer Mother Cancer Other No family history of adverse response to anesthesia Social History Smoking Status: Never smoker Second Hand Exposure: No; Do You Dip or Chew Tobacco: No; Hx Alcohol Use: Yes Alcohol type: hard liquor Hx Substance Use: No Preferred Language: Moldovan Communication Ability: Effective Shactor Helper Required: No Beliefs That Will Affect Care: None marital status: Current Living Situation: Alone current occupational status: disabled How many Children do You have: 3 Feels Safe at Home: Yes Safety Concerns: Feels Safe At This Time Assistive Devices: CPAP, Prosthesis and Wheelchair Review of Systems Review of Systems: All systems reviewed & are unremarkable except as noted in HPI & below Physical Exam Physical Exam: General: Comfortable, no acute distress Eyes: Sclerae anicteric Lungs: Clear to auscultation bilaterally Cardiac: Irregular irregular Abdomen: Soft, nontender Neuro: Nonfocal Psych: Alert orient x3, normal affect and mood Extremities/Vascular: -- 2+ radial bilaterally --1+ DP on right, diminished PT -- Anterior mcknight wound dressed, heel wound dressed -- 2-3+ lower extremity edema to below the knee with chronic venous stasis changes, erythema/stasis dermatitis Results & Data Vital Signs (Past 12 Hours) Vital Signs Temp Pulse Pulse Resp BP Pulse Ox O2 Del Method 02/09/24 08:30 82 02/09/24 08:00 97.9 F 87 18 146/65 H 98 Room Air PG Care Time/CCT Total # of Minutes Spent Total Time Spent with Patient: Total time spent is greater than 50% in coordination of care (as documented) at patient's floor/unit and/or counseling patient: Coding Level of Care Code 77349 INT INP/OBS CARE 3/75MIN Diagnoses 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 E11.628; L08.9
--- NOTE | 2024-02-09 19:22 | Ultrasound Report ---
ULTRASOUND RIGHT LOWER EXTREMITY ARTERIAL CLINICAL HISTORY: Necrosis of the second toe. COMPARISON STUDY: Right lower extremity arterial ultrasound dated 05/28/2023. TECHNIQUE: Real-time grayscale and color Doppler sonography of the arteries of the right lower extrem ity is performed from the inguinal crease to the foot. Ankle brachial indices were not assessed due t o wounds. The examination is degraded by large body habitus. FINDINGS: Atherosclerotic plaque and irregularity is seen throughout the arteries of the right lower extremity. There are biphasic arterial waveforms in the common femoral artery. The common femoral art jim is patent with velocities measuring up to 139 cm/s. The profunda femoris artery is patent with ve locities measuring up to 63 cm/s. There are biphasic arterial waveforms in the superficial femoral an d popliteal arteries. Velocities in the superficial femoral artery measure up to 201 cm/s in the midp ortion. The distal superficial femoral artery is not visualized. Velocities in the proximal popliteal artery measure up to 57 cm/s. The distal popliteal artery is not visualized. The proximal posterior tibial artery is patent with velocities measuring up to 71 cm/s, the proximal peroneal artery is arceo nt with velocities measuring up to 107 cm/s. Flow is not seen within these vessels distally. The ante rior tibial artery is patent with velocities measuring up to 64 cm/s. The dorsalis pedis artery is pa tent with velocities measuring up to 125 cm/s. IMPRESSION: 1. The distal superficial femoral artery and the distal popliteal artery were not visualized and arceo ncy is not confirm. 2. The proximal posterior tibial and peroneal arteries are patent. The mid to distal portions of the vessels are not identified and patency could not be assessed. 3. The anterior tibial artery and the dorsalis pedis artery are patent. Dictated: 02/09/2024 12:15 PM Transcribed: 02/09/2024 12:32 PM Tita [id number] MARCIN_Olivier [id number] Electronically signed by: Lukas Trivedi M.D. 02/09/2024 7:20 PM
[2024-02-09] MEDS: DOCUSATE SODIUM/SENNA 50/8.6MG TAB PO SCH (22:47)
--- NOTE | 2024-02-10 06:49 | Anesthesiology Consultation ---
Date of Service February 10, 2024 Assessment & Plan Chart Review Chart Review: Acceptable Risk for Surgery and Patient NOT seen in Pre Admission Testing History Surgery Operation Date: 02/10/24 07:45 Proposed Procedures p Right Foot Calcanectomy - Bruno Tyler DPM Height/Weight Height: 6 ft Weight: 167.1 kg Allergies Allergy/AdvReac Type Severity Reaction Status Date / Time benzonatate AdvReac Intermediate choking, Verified 01/07/24 13:17 gagging Medications Home Medications Medication Instructions Recorded Confirmed Last Taken Lantus Solostar U-100 Insulin 40 units SC BID 02/08/24 02/09/24 Unknown acetaminophen 325 mg tablet 650 mg PO QID PRN Pain 02/08/24 02/09/24 Unknown (Tylenol) aspirin 81 mg tablet,delayed 81 mg PO DAILY 02/08/24 02/09/24 Unknown release atorvastatin 80 mg tablet 80 mg PO DAILY 02/08/24 02/09/24 Unknown bisacodyl 10 mg rectal suppository 10 mg AL DAILY PRN Constipation 02/08/24 02/09/24 Unknown (Dulcolax (bisacodyl)) cefepime 2 gram solution for 2 g IV BID 02/08/24 02/09/24 Unknown injection ergocalciferol (vitamin D2) 50,000 50,000 unit PO WK 02/08/24 02/09/24 Unknown unit tablet ferrous sulfate 325 mg (65 mg 325 mg PO BID 02/08/24 02/09/24 Unknown iron) tablet hyoscyamine sulfate 0.125 mg tablet 0.125 mg PO Q4H PRN Abdominal Pain 02/08/24 02/09/24 Unknown insulin aspart U-100 100 unit/mL 10 unit subcut AC 02/08/24 02/09/24 Unknown subcutaneous solution (Novolog U-100 Insulin aspart) levothyroxine 88 mcg tablet 88 mcg PO DAILY 02/08/24 02/09/24 Unknown metolazone 2.5 mg tablet 2.5 mg PO UD 02/08/24 02/09/24 Unknown metoprolol tartrate 50 mg tablet 50 mg PO TID 02/08/24 02/09/24 Unknown multivitamin,vx-qjom-Qt-FA-min 1 tab PO DAILY 02/08/24 02/09/24 Unknown nystatin 1 applic EXT UD 02/08/24 02/09/24 Unknown omeprazole 20 mg capsule,delayed 20 mg PO DAILY 02/08/24 02/09/24 Unknown release oxycodone 10 mg tablet 20 mg PO Q4H PRN Pain, Severe 02/08/24 02/09/24 Unknown potassium chloride 20 mEq 20 meq PO BID 02/08/24 02/09/24 Unknown tablet,extended release(part/cryst) pregabalin 50 mg capsule 50 mg PO BID 02/08/24 02/09/24 Unknown sitagliptin phosphate 50 mg tablet 50 mg PO DAILY 02/08/24 02/09/24 Unknown (Januvia) sennosides 8.6 mg-docusate sodium 2 tab-cap PO HS 02/09/24 02/09/24 Unknown 50 mg tablet (Senna-S) spironolactone 25 mg tablet 25 mg PO DAILY 02/09/24 02/09/24 Unknown torsemide 60 mg PO DAILY 02/09/24 02/09/24 Unknown triamcinolone acetonide 0.1 % 1 applic topical TID 02/09/24 02/09/24 Unknown lotion warfarin 3 mg tablet 3 mg PO DAILY 02/09/24 02/09/24 Unknown Active Medications Generic Name Dose Route Start Last Admin Trade Name Freq PRN Reason Stop Dose Admin Acetaminophen 650 mg 02/09/24 03:09 02/10/24 06:10 Acetaminophen 325 Mg Tab PO 03/10/24 03:08 650 mg Q4H PRN Administration Pain or Fever Aspirin 81 mg 02/09/24 09:00 02/09/24 09:22 Aspirin 81 Mg Ectab PO 03/10/24 08:59 81 mg DAILY MATT Administration Atorvastatin Calcium 80 mg 02/09/24 09:00 02/09/24 09:23 Atorvastatin 40 Mg Tab PO 03/10/24 08:59 80 mg DAILY MATT Administration Ferrous Sulfate 325 mg 02/09/24 08:00 02/09/24 17:25 Ferrous Sulfate 325 Mg Tab PO 03/10/24 07:59 325 mg BIDM MATT Administration Heparin Sodium (Porcine) 7,500 units 02/09/24 09:00 02/09/24 22:47 Heparin Sod 5,000 Unit/0.5 Ml Vial SQ 03/10/24 08:59 7,500 units Q12 MATT Administration Piperacillin Sod/Tazobactam Sod 4.5 gm in 100 mls @ 25 mls/hr 02/09/24 17:30 02/10/24 05:44 Zosyn IV 03/22/24 17:29 Infused Q8H MATT Infusion Protocol Daptomycin 675 mg/ Syringe 13.5 mls @ 6.75 mls/min 02/09/24 14:00 02/09/24 14:07 IV 03/22/24 13:59 6.75 mls/min Q24H MATT Administration Protocol Insulin Aspart 0 units 02/09/24 03:45 02/09/24 22:36 Insulin Aspart Per Unit Charge SC 03/10/24 03:44 Not Given ACHS MATT Levothyroxine Sodium 88 mcg 02/09/24 06:30 02/10/24 05:32 Levothyroxine Sodium 88 Mcg Tablet PO 03/10/24 06:29 88 mcg DAILYBB MATT Administration Magnesium Oxide 400 mg 02/09/24 09:00 02/09/24 22:47 Magnesium Oxide 400 Mg Tab PO 03/10/24 08:59 400 mg BID MATT Administration Metoprolol Tartrate 50 mg 02/09/24 09:00 02/09/24 22:47 Metoprolol Tartrate 50 Mg Tab PO 03/10/24 08:59 50 mg TID MATT Administration Multivitamins/Minerals 1 tab 02/09/24 09:00 02/09/24 09:22 Cerovite Adv Formula Tab PO 03/10/24 08:59 1 tab DAILY MATT Administration Oxycodone HCl 20 mg 02/09/24 03:09 02/10/24 04:15 Oxycodone Hcl Ir 5 Mg Tab (Immediate Release) PO 02/23/24 03:08 20 mg Q4H PRN Administration Pain, Severe Pantoprazole Sodium 40 mg 02/09/24 09:00 02/09/24 09:22 Pantoprazole 40 Mg Tab PO 03/10/24 08:59 40 mg DAILY MATT Administration Potassium Chloride 20 meq 02/09/24 14:00 02/09/24 22:48 Potassium Chloride Crtab 20 Meq Tabcr PO 03/10/24 13:59 20 meq TID MATT Administration Pregabalin 50 mg 02/09/24 09:00 02/09/24 22:47 Pregabalin 50 Mg Cap PO 11/14/24 08:59 50 mg BID MATT Administration Senna/Docusate Sodium 2 tab 02/09/24 21:00 02/09/24 22:47 Docusate Sodium/Senna 50/8.6mg Tab PO 03/10/24 20:59 2 tab HS MATT Administration Torsemide 60 mg 02/09/24 09:00 02/09/24 09:21 Torsemide 20 Mg Tab PO 03/10/24 08:59 60 mg DAILY MATT Administration Past Medical History Medical History Depression with suicidal ideation Acute osteomyelitis of left foot T2DM (type 2 diabetes mellitus) CHF (congestive heart failure) Acute on chronic combined systolic (congestive) and diastolic (congestive) heart failure Diabetic ulcer of right foot Sustained ventricular tachycardia Pneumonia due to COVID-19 virus SARS-CoV-2 positive Sepsis Cellulitis of left lower leg Diabetic ulcer of left heel associated with diabetes mellitus due to underlying condition, limited to breakdown of skin Acute on chronic renal failure Acute hypoxemic respiratory failure Sleep apnea BIPAP Rectal bleeding Depression Deformity of foot Adams fracture Base of left fifth metatarsal, nonhealing x years Diabetic ulcer of left foot associated with type 2 diabetes mellitus, with fat layer exposed Hx of sepsis 06/2019 Arthritis Venous stasis ulcer of right lower leg with edema of right lower leg Hypokalemia Bacteremia due to group B Streptococcus Lymphedema Sustained VT (ventricular tachycardia) GERD (gastroesophageal reflux disease) Hx of osteomyelitis Hx of myocardial infarction found on testing Asthma well controlled, daily longterm 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 CKD (chronic kidney disease) stage 3, GFR 30-59 ml/min Past Family History Family History Sister Family history of diabetes mellitus 2 Grandmother (Maternal) Family history of diabetes mellitus Grandfather (Maternal) Family history of diabetes mellitus Father Cancer Mother Cancer Other No family history of adverse response to anesthesia Past Surgical History Surgical History History of esophagogastroduodenoscopy (EGD) H/O foot surgery LEFT FOOT ULCER DEBRIDEMENT H/O cardiac radiofrequency ablation OCTOBER 2019 ([facility]) AT [facility] History of cardiac cath V. tach -- no stent. 06/2019. unsure where it was done History of sinus surgery Hx of tonsillectomy History of colonoscopy Hx of amputation of lesser toe H/O shoulder surgery left Social History Smoking Status: Never smoker Do You Dip or Chew Tobacco: No Hx Alcohol Use: Yes Alcohol type: hard liquor alcohol intake frequency: holidays/special occasions only Hx Substance Use: No substance use type: does not use Physical Exam Vital Signs Last Vital Signs Temp 36.5 C 02/10/24 04:12 Pulse 80 02/10/24 06:38 Resp 20 02/10/24 04:12 BP 108/75 02/10/24 04:12 Pulse Ox 98 02/10/24 04:12 O2 Del Method Room Air 02/10/24 04:12 Testing Laboratory Results 02/09/24 05:21 02/09/24 05:21 PT 18.7 Seconds (9.0-12.0) H 02/09/24 05:21 INR 1.8 (0.9-1.1) H 02/09/24 05:21 Hemoglobin A1c 7.5 % (4.5-5.6) H 02/09/24 05:21 02/09/24 02/09/24 22:05 22:05 POC Glucose 106 H 106 H
[2024-02-10 07:00] LABS: INR 1.7 (0.9-1.1); Prothrombin Time 17.4 Seconds (9.0-12.0)
[2024-02-10] MEDS: ERGOCALCIFEROL 1250 MCG (50,000 UNITS) CAP PO SCH (07:56)
[2024-02-10] MEDS: BUMETANIDE 3 MG in SYRINGE 0 ML IV SCH (07:58)
[2024-02-10] MEDS: LANTUS PER UNIT CHARGE SC SCH (08:13)
[2024-02-10] MEDS ORDERED: LANTUS PER UNIT CHARGE SC SCH (09:00)
--- NOTE | 2024-02-10 09:17 | Podiatry Progress Note ---
Date of Service February 10, 2024 Assessment & Plan (1) Wound, open, foot with complication: (2) Leg wound, right: (3) Cellulitis of right leg: (4) PVD (peripheral vascular disease): (5) 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: (6) H/O osteomyelitis: (7) Osteomyelitis of foot, right, acute: Plan - Pt examined and evaluated - CT confirms osteomyelitis, which is fairly extensive, to the anterior plantar calcaneal tuberosity. - Plan for partial calcanectomy and extensive sharp debridement tomorrow morning. - Ideally has vascular follow-up and intervention later this week. - Healing potential is still minimal, though continued wound vac after partial calcanectomy could, potentially, still be viable. - Will have vac placed after surgery, likely Thursday. Admission and Anticipated Discharge Date Admission Date: February 09, 2024 Subjective Seen at bedside. Very averse to higher level of amputation and wants to continue aggressive wound care/limb salvage. Denies any new complaints today. Review of Systems Constitutional: + fever, + chills and + weakness; no fat igue Eyes: no problem reported Ear, Nose, Mouth, Throat: no problem reported Respiratory: no problem reported Cardiovascular: + edema; no problem reported Gastrointestinal: no nausea, no vomiting and no problem reported Musculoskeletal: + deformity, + limited range of motion a nd + muscle weakness Integumentary: + non-healing lesions, + changing lesion s, + skin ulcer, + wounds and + erythema Neurologic: + loss of sensation, + numbness and + pa resthesia; no generalized weakness Psychiatric: no problem reported Physical Exam Physical Exam: RLE focused exam: DP/PT pulses non palpable. +3 pitting edema with chronic venous stasis noted throughout lower extremity. Extensive ulceration noted to right calcaneus. Wound is irregular in shape, directly underlying calcaneus. Measures [id number] in largest dimensions. Wound bed is 100% fibrotic and necrotic, with calcaneal bone visualized centrally. Wound margins are rolled; no viable wound base appreciated. Smaller dry wounds noted to multiple lesser digits, consistent with arterial disease. No benedict purulence exuding from wound, minimal malodor, but extensive erythema to lower extremity in total. Constitutional: WD/WN, vitals as above + ill appearing and + morbidly obese; no acute distress Eyes: PERRL, conjunctivae normal, anicteric sclerae ENMT: external ear and nose normal, oropharynx normal Neck: trachea midline, no thyromegaly normal visual inspection Respiratory: normal respiratory effort; no respiratory distress Cardiovascular: Rate/Rhythm: regular rate and regular rhythm Chest (Breasts): Chest: normal inspection of chest Gastrointestinal (Abdomen): Inspection/Auscultation: abdomen normal to inspection Percussion/Palpation: + abdomen tender and abdomen soft Musculoskeletal: no cyanosis or clubbing, extremities motor strength 5/5 Head/Neck/Chest: normocephalic and head atraumatic Extremities: + amputation noted (Left BKA) Skin: + ulcer, + skin tightening, + wound, + s kin atrophy and + erythema Neurologic: awake; + abnormal touch/pain/proprioception, + abnormal sensation to monofilament and no focal motor deficits Psychiatric: A+Ox3, euthymic affect Results & Data Results & Data Vital Signs (Past 12 Hours) Vital Signs Temp Pulse Pulse Resp BP Pulse Ox O2 Del Method 02/10/24 07:23 36.6 C 78 18 123/67 94 Room Air 02/10/24 06:38 80 02/10/24 04:12 36.5 C 91 H 20 108/75 98 Room Air 02/09/24 22:06 36.9 C 83 18 146/65 H 97 Room Air (1) Wound, open, foot with complication Encounter type: initial encounter Laterality: right Qualified Code(s): S91.301A - Unspecified open wound, right foot, initial encounter (2) Leg wound, right Encounter type: initial encounter Qualified Code(s): S81.801A - Unspecified open wound, right lower leg, initial encounter
[2024-02-10 09:37] LABS: Magnesium 1.7 mg/dl (1.7-2.4); Potassium 3.2 mmol/L (3.5-5.1)
[2024-02-10 09:43] LABS: BUN Creatinine Ratio 33.8 (10-20); Creatinine Clr Calc Pharmacy 80.3 ml/min
[2024-02-10] MEDS: POTASSIUM CHLORIDE CRTAB 20 MEQ TABCR PO ONE (12:15)
--- NOTE | 2024-02-10 13:51 | Hospitalist Progress Note ---
Date of Service February 10, 2024 Assessment & Plan (1) Leg wound, right: Plan: 58-year-old male with past medical history significant for type 2 diabetes, diabetic polyneuropathy, diabetic retinopathy, testicular hypofunction, hyperlipidemia, hypothyroidism, obstructive sleep apnea, asthma in remission, chronic systolic and diastolic CHF, history of CAD, history of pulmonary hypertension, history of ventricular tachycardia, status post AICD, history of atrial fibrillation, history of chronic cor pulmonale, peripheral artery disease, venous stasis ulcers, hypertension, morbid obesity, vitamin D deficiency, chronic ulcer of the right lower leg, anemia, status post left BKA, depression, statin intolerance, currently residing at [facility] comes for possible PICC placement and IV antibiotics for left right lower leg wound. Patient is following with the wound care. Wound VAC placed on right foot about couple of weeks ago per patient. Few days ago last Thursday biopsy of the right foot was done. Patient does not know the results of the biopsy. Seems [facility] did not had transportation and was not started on antibiotics. Patient says he called EMS and came here. We do not have records of the wound care currently. Denies any fever. Has pain in the right leg. Ambulates with a cane. Somewhat constipated. Denies any blood in the stools. Micturating okay. Denies abdominal pain. No nausea. No chest pain. No shortness of breath. No headache no dizziness. No blurred vision. No sore throat or cough. Hemodynamics are okay.Ambulates with cane.States last several days not taking Coumadin in anticipation of PICC line placement. Right leg wound/ulceration /cellulitis PVD/venous stasis/lymphedema Right Calcaneal osteomyelitis--POA S/p wound VAC in right foot S/p biopsy of right foot suggestive of early Osteo per [facility] Wound Cultures at [facility] grew E.Coli, Enterococcus faecalis (was on vancomycin, cefepime) Debrided at [facility] podiatry clinic, wound vac placed Records from wound care pending --Venous Doppler:Highly limited study with no evaluation of the distal popliteal vein or calf veins due to body habitus. No obvious deep venous thrombus is seen. Soft tissue edema is noted. --RLE Arterial Doppler:The distal superficial femoral artery and the distal popliteal artery were not visualized and patency is not confirm. The proximal posterior tibial and peroneal arteries are patent. The mid to distal portions of the vessels are not identified and patency could not be assessed. The anterior tibial artery and the dorsalis pedis artery are patent. --Foot CT:Findings compatible with osteomyelitis about a large heel ulcer. No drainable abscess is seen. -- Given CHATO, vancomycin changed to Daptomycin. Also on IV Zosyn -- Appreciate podiatry, vascular input -- Plan for aggressive wound debridement, tentative for partial calcanectomy tomorrow Warfarin on hold Likely to have angiogram via right radial artery on Thursday and possible venous ablation Continue diuresis to help with edema N.p.o. after midnight for procedure tomorrow Acute on Chronic HFrEF H/O VT s/p AICD LVEF 35 to 39%, 05/2022. Strict I&O. daily weights Continue metoprolol Entresto held due to low blood pressure Hold p.o. torsemide Continue IV Bumex Monitor renal function, electrolytes Replete electrolytes as needed CHATO on CKD stage III Baseline creatinine 1.2-1.3 Creatinine 1.5 today Avoid nephrotoxic agents as able Monitor renal function Hypokalemia Secondary to diuretics Replace and monitor Hyponatremia Sodium 132>135 Likely due to diuretics Monitor sodium levels Total bilirubin 1.6 Seems chronic elevation Chronic cor pulmonale Ischemic cardiomyopathy Chronic venous stasis H/O VT S/P ablation S/P AICD Peripheral vascular disease Continue aspirin Hold statin while on Dapto DM II HbA1c 7.5 Continue insulin while hospitalized Hold Januvia Monitor blood sugars Follow HbA1c levels Obstructive sleep apnea BiPAP nightly Permanent atrial fibrillation Continue metoprolol Patient states Coumadin held for last few days in anticipation of PICC line placement Hold Coumadin for procedure Monitor Hypertension Continue current medications Monitor BP GERD Continue PPI Hypothyroidism Continue levothyroxine Diabetic polyneuropathy On Lyrica DVT Px: Heparin SQ for now Restart Coumadin as soon as possible CODE STATUS Full code Admission and Anticipated Discharge Date Admission Date: February 09, 2024 Subjective Patient is seen and examined at bedside States having right leg pain Offers no other complaints Denies any chest pain, dyspnea, nausea, vomiting, abdominal pain Review of Systems Review of Systems: All systems reviewed & are unremarkable except as noted in Subjective Physical Exam Physical Exam: Physical Exam: Vitals signs as noted above General Appearance:Morbidly Obese, no apparent distress Head: normocephalic, Atraumatic Eyes: normal inspection, EOMI Neck: supple, Trachea midline Respiratory/Chest: Normal breath sounds, CTA, No accessory muscle use Cardiovascular: Irregularly irregular, No murmur Abdomen/GI:Soft, Non tender, Bowel sounds present Extremities/Musculoskeletal:normal inspection, LE edema, Erythema, Left BKA, RLE wound in dressing Neurologic/Psych:AAOX3, grossly no focal neurological deficits Skin: normal color, warm Results & Data Results & Data Vital Signs (Past 12 Hours) Vital Signs Temp Pulse Pulse Resp BP Pulse Ox O2 Del Method 02/10/24 11:06 36.9 C 78 12 136/85 94 Room Air 02/10/24 07:23 36.6 C 78 18 123/67 94 Room Air 02/10/24 06:38 80 02/10/24 04:12 36.5 C 91 H 20 108/75 98 Room Air Laboratory Results [facility] 02/10/24 05:39 Sodium 135 L Potassium 3.2 L Chloride 93 L Carbon Dioxide 31 BUN 53 H Creatinine 1.57 H Glucose 155 H Calcium 9.0 (1) Leg wound, right Encounter type: initial encounter Qualified Code(s): S81.801A - Unspecified open wound, right lower leg, initial encounter
[2024-02-10] MEDS: TRIAMCINOLONE ACET 0.1% CR 15 GM TUBE EXT PRN (17:20)
[2024-02-11 07:49] LABS: BUN Creatinine Ratio 32.9 (10-20); Calcium 8.9 mg/dl (8.6-10.3); Creatinine Clr Calc Pharmacy 77.6 ml/min; Magnesium 1.7 mg/dl (1.7-2.4); Potassium 3.1 mmol/L (3.5-5.1)
--- NOTE | 2024-02-11 08:52 | Pharmacy Report ---
Pharmacy Glycemic Short Note 2 - Date of Service February 11, 2024 - Glycemic Short BSG Results (Last 24 hours): 02/10/24 02/10/24 02/10/24 05:39 11:01 16:06 Glucose 155 H POC Glucose 123 H 78 02/10/24 02/11/24 02/11/24 20:47 05:35 07:12 Glucose 166 H POC Glucose 154 H 182 H OUTPATIENT ANTIDIABETIC REGIMEN: * Lantus 40 units SC BID * Novolog 10 units SC AC * Claire * HbA1c 7.5% on 02/09/24 ASSESSMENT: 02/10 * Patient NPO as of midnight last night for possible partial calcanectomy today. Also plan for possible angiogram tomorrow. * AM fasting BSG elevated, but delayed AM dose of Lantus 2nd NPO. AM dose to be given at lunch. Hesitant to increase Lantus today 2nd possible NPO tomorrow AM and low BSG of 80 mg/dL on admission when patient was receiving more basal. Will therefore not adjust Lantus for now. * BSG below goal range at dinner yesterday. Patient ate "100%" of lunch, but unclear how many CHO were consumed. 18 units admin at lunch, which would be an appropriate dose if the patient ate ~72g CHO. CHO consumed also not documented at breakfast, although 19 units of Novolog were administered then. Will re-assess CHO ratio after patient ordered a diet again. * BSG at lunchtime today elevated to 202 mg/dL - this was obtained post-op and patient also did not get correctional insulin this AM preop. Therefore will not adjust Novolog 02/08 * 58 yo M w T2DM known to our glycemic service from lengthy admission in Apr-May 2023 admitted 02/07 w diabetic foot infection and suspected osteomyelitis. * Outpatient regimen is basal heavy. Prior inpatient regimen reviewed - anticipated inpatient daily dose ~50-60 units/day. Will split BID to be c/w outpatient schedule * AM fasting BSG low at 80 units. Unclear if this is due to correctional insulin overnight or higher outpatient Lantus dose. Will loosen correction factor and reduce Lantus this AM. * Will tighten CHO ratio, although this will still be slightly looser than previous admit. Minimal PO intake with breakfast therefore not able to assess impact of this change. PLAN FOR INPATIENT GLYCEMIC CONTROL: * Hold outpatient oral diabetes medications * Basal insulin * Lantus 25-30 units SC BID, depending on BSG * Bolus insulin * NovoLog per scale ACHS or Q6hrs while NPO * Goal Range: Low 110 mg/dL - High 140 mg/dL * Correction Factor: 20 mg/dL/unit * Nutritional / Prandial insulin per carb ratio of 1 unit per 4 grams CHO consumed
[2024-02-11] MEDS ORDERED: MIDAZOLAM HCL 1 MG/ML 2ML VIAL ONE ×2 (09:40→09:41)
[2024-02-11] MEDS ORDERED: fentaNYL citrate PF 100 MCG/2 ML VIAL ONE (09:41)
--- NOTE | 2024-02-11 09:58 | History & Physical Bridge Note ---
Date of Service February 11, 2024 History & Physical Bridge Note I have examined the patient, reviewed the History & Physical and in the interval since the performance of the History & Physical I have noted the following changes of clinical significance: no changes noted. Plan for right heel debridement with bone biopsy. All questions answered. Consent obtained.
[2024-02-11] MEDS ORDERED: fentaNYL citrate PF 100 MCG/2 ML VIAL IV PRN (10:04)
[2024-02-11] MEDS ORDERED: ONDANSETRON INJ 2 MG/ML 2 ML VIAL IV PRN (10:04)
[2024-02-11] MEDS ORDERED: ATROPINE SULFATE 0.1 MG/ML 10ML SYR IV PRN (10:04)
[2024-02-11] MEDS: LACTATED RINGER'S 1,000 ML IV SCH (10:06)
[2024-02-11] MEDS: BUPIVACAINE 0.5 % 5 MG/1 ML MPF 30ML VIAL ONE (10:15)
[2024-02-11] MEDS ORDERED: ONDANSETRON INJ 2 MG/ML 2 ML VIAL ONE (10:33)
--- NOTE | 2024-02-11 10:53 | Post Operative Brief Note ---
Immediate Post Op Note Date of Surgery February 11, 2024 Pre & Post Diagnosis Operation Date: 02/11/24 09:45 Pre-Op Diagnosis: Leg wound, right Cellulitis of right leg Osteomyelitis of foot, right, acute Post-Op Diagnosis: Leg wound, right Cellulitis of right leg Osteomyelitis of foot, right, acute I identified the patient and participated in the time-out.: Yes Procedure Operation Date: 02/11/24 09:45 Actual Procedures p Right Foot Calcanectomy(Right) - Bruno Tyler DPM Surgeon Bruno Tyler DPM Manager Of Compensation None Estimated Blood Loss 100 Findings Consistent with Post-Op Diagnosis Extensive bone infection with large plantar wound. Calcaneus softened. Moderate blood loss still noted; minimal active, pulsatile bleeding. Specimens Calcaneus bone for pathology Proximal calcaneus for proximal margin Calcaneus for culture Anesthesia Type MAC Complications none Disposition Accompanied Patient To Recovery: Yes Disposition: Recovery Room
--- NOTE | 2024-02-11 10:56 | Operative Report ---
Post Operative Report Pre & Post Diagnosis Operation Date: 02/11/24 09:45 Pre-Op Diagnosis: Leg wound, right Cellulitis of right leg Osteomyelitis of foot, right, acute Post-Op Diagnosis: Leg wound, right Cellulitis of right leg Osteomyelitis of foot, right, acute I identified the patient and participated in the time-out.: Yes Procedure Operation Date: 02/11/24 09:45 Actual Procedures p Right Foot Calcanectomy(Right) - Bruno Tyler DPM Surgeon Bruno Tyler DPM Legend Maker None Estimated Blood Loss 100 Findings Consistent with Post-Op Diagnosis Specimens Cocoa Powder Mixer Operator samples of calcaneus were sent for pathology and culture. Anesthesia Type MAC Complications none Disposition Accompanied Patient To Recovery: Yes Disposition: Recovery Room Indications This patient is a recent hospital consult on 9 who is seen for an extensive ulceration of the plantar aspect of the right heel. He has a prolonged history of ulcerations leading to infection and even a higher level amputation on the left lower extremity. He would like to attempt limb salvage for the right lower extremity. He has had vascular assessment and is noted to have adequate blood flow for healing, theoretically. With this, he would like to attempt to salvage this right foot. We discussed that the best route forward for this is via further resection of the calcaneus to remove devitalized tissue and encourage healing. He has elected for this partial calcanectomy with wound excisional debridement. Further, we discussed he may require a wound VAC long-term to allow for further healing as this procedure today will not be a definitive treatment for the wound. Preoperative instructions, postoperative instructions, relative risks, and outcomes were all discussed. Consent was obtained for this right foot partial calcanectomy. All questions were answered. Description of Procedure The patient was brought to the operating room placed on the operating table in the supine position. Following ministration of IV sedation, local analgesia was obtained utilizing 20 cc of half percent Marcaine in a local block fashion. The right lower extremity was then scrubbed prepped and draped in the usual aseptic manner. No tourniquet was utilized for the duration of this case given the patient's suspect arterial inflow. Attention was directed to the plantar aspect of the patient's right heel where a large 10 x 8 cm ulceration was noted. This immediately probed to the plantar aspect of the calcaneus where irregular bone growth was noted, consistent with the erosions and proliferations associated with osteomyelitis. Utilizing a combination of rongeur, curette, and osteotome, the plantar posterior aspect of the calcaneus was planed to remove any suspected nonviable calcaneal bone. All necrotic nonviable soft tissue was also removed and any devitalized ulcer borders were sharply debrided to healthier underlying skin. Adequate bleeding was noted throughout the case, though still diminished compared to a more age-appropriate limb. Cocoa Powder Mixer Operator samples of the bone were obtained and sent to pathology, including a proximal margin obtained from the deepest aspect of the calcaneus after resecting the more suspect aspects of the calcaneal bone. The wound was then packed with iodoform packing gauze and 3 retention stitches were placed along the proximal aspect of the ulcer to attempt to cover the bone, at least temporarily. The wound was then dressed with Xeroform gauze, 4 x 4 gauze, Kerlix, an ABD, and an Hilario wrap. He will be a wound VAC candidate with this level of wound involvement. Ideally this will be placed in the next day or 2 on the hospital floor. The patient tolerated the procedure well and was transferred to the recovery room with vital signs stable and vascular status intact to the feet. Following postoperative monitoring, the patient will be transferred back to the floor for further assessment prior to discharge once he is more medically stable. I attest to the content of the Intraoperative Record and any orders documented therein. Any exceptions are noted below.
[2024-02-11] MEDS: BACITRACIN OINT 14 GM TUBE ONE (11:00)
--- NOTE | 2024-02-11 12:18 | Anesthesiology Progress Note ---
Date of Service February 11, 2024 Anesthesia Post Procedure Vital Signs Vital Signs: Temp Pulse Pulse Resp BP BP Pulse Ox 02/11/24 12:05 36.3 C L 72 18 135/78 95 02/11/24 11:45 36.5 C 78 134/77 93 02/11/24 11:25 78 16 132/73 94 02/11/24 11:15 36.5 C 74 16 142/75 H 97 02/11/24 11:05 78 20 126/77 98 02/11/24 10:55 36.0 C L 81 16 124/77 98 02/11/24 09:10 36.7 C 76 18 125/77 96 02/11/24 07:12 36.8 C 72 18 111/71 94 02/11/24 03:02 36.6 C 78 19 122/88 96 02/10/24 23:03 36.5 C 110 H 20 143/84 H 96 02/10/24 19:29 36.5 C 70 18 117/73 95 02/10/24 15:03 36.9 C 78 14 124/85 96 O2 Del Method O2 Flow Rate 02/11/24 12:05 Room Air 02/11/24 11:45 Room Air 02/11/24 11:25 Room Air 02/11/24 11:15 Room Air 02/11/24 11:05 Oxymask 4 02/11/24 10:55 Oxymask 6 02/11/24 09:10 Room Air 02/11/24 07:12 Room Air 02/11/24 03:02 Room Air 02/10/24 23:03 Room Air 02/10/24 19:29 Room Air 02/10/24 15:03 Room Air Pain Intensity Right Foot: Pain Intensity: 7 Right Knee: Pain Intensity: 6 Transfer of Care Handoff Completed per policy Notes Mental Status: alert / awake / arousable Patient Amnestic to Procedure: Yes Nausea / Vomiting: adequately controlled Pain: adequately controlled Airway Patency, RR, SpO2: stable & adequate BP & HR: stable & adequate Hydration State: stable & adequate Anesthetic Complications: no major complications apparent
[2024-02-11] MEDS: POTASSIUM CHLORIDE CRTAB 20 MEQ TABCR PO ONE (12:59)
--- NOTE | 2024-02-11 16:10 | Hospitalist Progress Note ---
Date of Service February 11, 2024 Assessment & Plan (1) Leg wound, right: Plan: 58-year-old male with past medical history significant for type 2 diabetes, diabetic polyneuropathy, diabetic retinopathy, testicular hypofunction, hyperlipidemia, hypothyroidism, obstructive sleep apnea, asthma in remission, chronic systolic and diastolic CHF, history of CAD, history of pulmonary hypertension, history of ventricular tachycardia, status post AICD, history of atrial fibrillation, history of chronic cor pulmonale, peripheral artery disease, venous stasis ulcers, hypertension, morbid obesity, vitamin D deficiency, chronic ulcer of the right lower leg, anemia, status post left BKA, depression, statin intolerance, currently residing at [facility] comes for possible PICC placement and IV antibiotics for left right lower leg wound. Patient is following with the wound care. Wound VAC placed on right foot about couple of weeks ago per patient. Few days ago last Thursday biopsy of the right foot was done. Patient does not know the results of the biopsy. Seems longterm did not had transportation and was not started on antibiotics. Patient says he called EMS and came here. We do not have records of the wound care currently. Denies any fever. Has pain in the right leg. Ambulates with a cane. Somewhat constipated. Denies any blood in the stools. Micturating okay. Denies abdominal pain. No nausea. No chest pain. No shortness of breath. No headache no dizziness. No blurred vision. No sore throat or cough. Hemodynamics are okay.Ambulates with cane.States last several days not taking Coumadin in anticipation of PICC line placement. Right leg wound/ulceration /cellulitis PVD/venous stasis/lymphedema Right Calcaneal osteomyelitis--POA S/p wound VAC in right foot S/p biopsy of right foot suggestive of early Osteo per His Paste Plant Supervisor Wound Cultures at [facility] grew E.Coli, Enterococcus faecalis (was on vancomycin, cefepime) Debrided at [facility] podiatry clinic, wound vac placed Records from wound care pending --Venous Doppler:Highly limited study with no evaluation of the distal popliteal vein or calf veins due to body habitus. No obvious deep venous thrombus is seen. Soft tissue edema is noted. --RLE Arterial Doppler:The distal superficial femoral artery and the distal popliteal artery were not visualized and patency is not confirm. The proximal posterior tibial and peroneal arteries are patent. The mid to distal portions of the vessels are not identified and patency could not be assessed. The anterior tibial artery and the dorsalis pedis artery are patent. --Foot CT:Findings compatible with osteomyelitis about a large heel ulcer. No drainable abscess is seen. --S/P right foot calcanectomy -- Follow-up wound cultures -- Given CHATO, vancomycin changed to Daptomycin. Also on IV Zosyn -- Appreciate podiatry, vascular input --Warfarin on hold Likely to have angiogram via right radial artery on Thursday and possible venous ablation Continue diuresis to help with edema Pain control Continue current management Creatinine level stable Acute on Chronic HFrEF H/O VT s/p AICD LVEF 35 to 39%, 05/2022. Strict I&O. daily weights Continue metoprolol Entresto held due to low blood pressure Hold p.o. torsemide Continue IV Bumex Monitor renal function, electrolytes Replete electrolytes as needed CHATO on CKD stage III Baseline creatinine 1.2-1.3 Creatinine 1.5 today Avoid nephrotoxic agents as able Monitor renal function Hypokalemia Secondary to diuretics Replace and monitor Hyponatremia Sodium 132>135>136 Likely due to diuretics Monitor sodium levels Total bilirubin 1.6 Seems chronic elevation Chronic cor pulmonale Ischemic cardiomyopathy Chronic venous stasis H/O VT S/P ablation S/P AICD Peripheral vascular disease Continue aspirin Hold statin while on Dapto DM II HbA1c 7.5 Continue insulin while hospitalized Hold Januvia Monitor blood sugars Follow HbA1c levels Obstructive sleep apnea BiPAP nightly Permanent atrial fibrillation Continue metoprolol Patient states Coumadin held for last few days in anticipation of PICC line placement Hold Coumadin for procedure Monitor Hypertension Continue current medications Monitor BP GERD Continue PPI Hypothyroidism Continue levothyroxine Diabetic polyneuropathy On Lyrica DVT Px: Heparin SQ for now Restart Coumadin as soon as possible CODE STATUS Full code Admission and Anticipated Discharge Date Admission Date: February 09, 2024 Subjective Patient is seen and examined at bedside Complains of right foot pain at surgical site Drowsy post procedure during my encounter Offers no other complaints Denies any chest pain, dyspnea, nausea, vomiting, abdominal pain Review of Systems Review of Systems: All systems reviewed & are unremarkable except as noted in Subjective Physical Exam Physical Exam: Physical Exam: Vitals signs as noted above General Appearance:Morbidly Obese, no apparent distress Head: normocephalic, Atraumatic Eyes: normal inspection, EOMI Neck: supple, Trachea midline Respiratory/Chest: Normal breath sounds, CTA, No accessory muscle use Cardiovascular: Irregularly irregular, No murmur Abdomen/GI:Soft, Non tender, Bowel sounds present Extremities/Musculoskeletal:normal inspection, LE edema, Erythema, Left BKA, RLE surgical site in dressing Neurologic/Psych:AAOX3, grossly no focal neurological deficits Skin: normal color, warm Results & Data Results & Data Vital Signs (Past 12 Hours) Vital Signs Temp Pulse Pulse Resp BP Pulse Ox O2 Del Method 02/11/24 15:02 36.8 C 74 18 135/62 93 Room Air 02/11/24 12:05 36.3 C L 72 18 135/78 95 Room Air 02/11/24 11:45 36.5 C 78 134/77 93 Room Air 02/11/24 11:25 78 16 132/73 94 Room Air 02/11/24 11:15 36.5 C 74 16 142/75 H 97 Room Air 02/11/24 11:05 78 20 126/77 98 Oxymask 02/11/24 10:55 36.0 C L 81 16 124/77 98 Oxymask 02/11/24 09:10 36.7 C 76 18 125/77 96 Room Air 02/11/24 07:12 36.8 C 72 18 111/71 94 Room Air O2 Flow Rate 02/11/24 15:02 02/11/24 12:05 02/11/24 11:45 02/11/24 11:25 02/11/24 11:15 02/11/24 11:05 4 02/11/24 10:55 6 02/11/24 09:10 02/11/24 07:12 Laboratory Results BMP 02/11/24 05:35 Sodium 136 Potassium 3.1 L Chloride 93 L Carbon Dioxide 33 H BUN 51 H Creatinine 1.55 H Glucose 166 H Calcium 8.9 (1) Leg wound, right Encounter type: initial encounter Qualified Code(s): S81.801A - Unspecified open wound, right lower leg, initial encounter
--- NOTE | 2024-02-11 20:48 | Vascular Medicine ProgressNote ---
Date of Service February 11, 2024 Assessment & Plan (1) 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: Plan: 2. Osteomyelitis 3. PADsuspected inflow disease 4. Venous ulceration 5. CVI/lymphedema 6. HFrEF 7. Permanent AF on anticoagulation 8. Post prior left BKA 9. Morbid obesity 10. Stage III CKD Patient has deep right heel ulceration with evidence of osteomyelitis. Current wound is high risk for limb loss. Arterial duplex suggestive of inflow disease. Now post Calcanectomy with podiatry today. Lower extremity edema improved from 2 days ago on increased diuretics Plan on right lower extremity angiogram tomorrow via right radial artery, probably around lunchtime Please keep n.p.o. in a.m. Hold a.m. heparin, and morning IV Bumex Will consider right SSV/remnant GSV ablation next week. Admission and Anticipated Discharge Date Admission Date: February 09, 2024 Subjective Seen this evening. Patient feeling well. Denies pain in RT foot post surgery earlier today. No other new concerns. Review of Systems Review of Systems: All systems reviewed & are unremarkable except as noted in HPI & below Physical Exam Physical Exam: General: Comfortable, no acute distress Eyes: Sclerae anicteric Lungs: Clear to auscultation bilaterally Cardiac: Irregular irregular Abdomen: Soft, nontender Neuro: Nonfocal Psych: Alert orient x3, normal affect and mood Extremities/Vascular: -- 2+ radial bilaterally -- Anterior mcknight wound dressed, heel wound dressed -- 1+ lower extremity edema to mid mcknight with chronic venous stasis changes, erythema/stasis dermatitis Results & Data Vital Signs (Past 12 Hours) Vital Signs Temp Pulse Pulse Resp BP Pulse Ox O2 Del Method 02/11/24 20:00 97.9 F 83 16 119/79 Room Air 02/11/24 16:06 Room Air 02/11/24 15:02 98.2 F 74 18 135/62 93 Room Air 02/11/24 12:05 97.3 F L 72 18 135/78 95 Room Air 02/11/24 11:45 97.7 F 78 134/77 93 Room Air 02/11/24 11:25 78 16 132/73 94 Room Air 02/11/24 11:15 97.7 F 74 16 142/75 H 97 Room Air 02/11/24 11:05 78 20 126/77 98 Oxymask 02/11/24 10:55 96.8 F L 81 16 124/77 98 Oxymask 02/11/24 09:10 98.1 F 76 18 125/77 96 Room Air O2 Flow Rate 02/11/24 20:00 02/11/24 16:06 02/11/24 15:02 02/11/24 12:05 02/11/24 11:45 02/11/24 11:25 02/11/24 11:15 02/11/24 11:05 4 02/11/24 10:55 6 02/11/24 09:10 PG Care Time/CCT Total # of Minutes Spent Total Time Spent with Patient: Total time spent is greater than 50% in coordination of care (as documented) at patient's floor/unit and/or counseling patient: Coding Level of Care Code 06405 SUB INP/OBS CARE 2/35MIN Diagnoses 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 E11.628; L08.9
[2024-02-12 05:54] LABS: Hematocrit (blood only) 42.2 % (42.0-52.0); Hemoglobin 13.7 g/dl (14.0-18.0); Mean Corpuscular Hgb Conc 32.5 g/dL (32.0-36.0); Mean Corpuscular Volume 86.1 fL (80.0-100.0); Mean Platelet Volume 9.4 fL (9.4-12.4); Platelet Count 319 K/uL (130-400); RDW Coefficient of Variation 18.6 % (11.5-14.5); RDW Standard Deviation 57.2 fL (36.4-46.3); White Blood Count 6.55 K/ul (4.8-10.8)
[2024-02-12 06:10] LABS: BUN Creatinine Ratio 31.3 (10-20); Calcium 9.1 mg/dl (8.6-10.3); Creatinine Clr Calc Pharmacy 72.5 ml/min; Magnesium 1.9 mg/dl (1.7-2.4); Potassium 3.8 mmol/L (3.5-5.1)
[2024-02-12 06:19] LABS: INR > 9.5 (0.9-1.1); Prothrombin Time > 90.0 Seconds (9.0-12.0)
[2024-02-12 08:12] LABS: INR 1.4 (0.9-1.1); Partial Thromboplastin Ratio 1.1; Partial Thromboplastin Time 30 Seconds (21-31); Prothrombin Time 14.7 Seconds (9.0-12.0)
--- NOTE | 2024-02-12 14:49 | Pharmacy Report ---
Pharmacy Glycemic Short Note 2 - Date of Service February 12, 2024 - Glycemic Short BSG Results (Last 24 hours): 02/11/24 02/11/24 02/12/24 16:24 20:36 05:24 Glucose 182 H POC Glucose 220 H 218 H 02/12/24 07:01 Glucose POC Glucose 165 H OUTPATIENT ANTIDIABETIC REGIMEN: * Lantus 40 units SC BID * Novolog 10 units SC AC * Luciaia * HbA1c 7.5% on 02/09/24 ASSESSMENT: 02/11: * Patient NPO as of midnight again for angiogram today and thus Basal insulin held. Although NPO some carbs were covered by RN due to juice consumed with morning meds. * BSGs yesterday were [phone] mg/dL. Fasting BSG this morning was 165 mg/dL. * Patient has not yet returned from his procedure. As such will plan to administer a one time basal dose when patient back on unit and resume BID dosing tomorrow morning. 02/10 * Patient NPO as of midnight last night for possible partial calcanectomy today. Also plan for possible angiogram tomorrow. * AM fasting BSG elevated, but delayed AM dose of Lantus 2nd NPO. AM dose to be given at lunch. Hesitant to increase Lantus today 2nd possible NPO tomorrow AM and low BSG of 80 mg/dL on admission when patient was receiving more basal. Will therefore not adjust Lantus for now. * BSG below goal range at dinner yesterday. Patient ate "100%" of lunch, but unclear how many CHO were consumed. 18 units admin at lunch, which would be an appropriate dose if the patient ate ~72g CHO. CHO consumed also not documented at breakfast, although 19 units of Novolog were administered then. Will re-assess CHO ratio after patient ordered a diet again. * BSG at lunchtime today elevated to 202 mg/dL - this was obtained post-op and patient also did not get correctional insulin this AM preop. Therefore will not adjust Novolog 02/08 * 58 yo M w T2DM known to our glycemic service from lengthy admission in Apr-May 2023 admitted 10/14 w diabetic foot infection and suspected osteomyelitis. * Outpatient regimen is basal heavy. Prior inpatient regimen reviewed - anticipated inpatient daily dose ~50-60 units/day. Will split BID to be c/w outpatient schedule * AM fasting BSG low at 80 units. Unclear if this is due to correctional insulin overnight or higher outpatient Lantus dose. Will loosen correction factor and reduce Lantus this AM. * Will tighten CHO ratio, although this will still be slightly looser than previous admit. Minimal PO intake with breakfast therefore not able to assess impact of this change. PLAN FOR INPATIENT GLYCEMIC CONTROL: * Hold outpatient oral diabetes medications * Basal insulin * Lantus 45 units X 1 this afternoon * Bolus insulin * NovoLog per scale ACHS or Q6hrs while NPO * Goal Range: Low 110 mg/dL - High 140 mg/dL * Correction Factor: 20 mg/dL/unit * Nutritional / Prandial insulin per carb ratio of 1 unit per 4 grams CHO consumed
[2024-02-12] MEDS: fentaNYL citrate PF 100 MCG/2 ML VIAL ONE (15:36)
[2024-02-12] MEDS: niCARdipine HCL INJ 2.5 MG/ML 10 ML AMP ONE (15:37)
[2024-02-12] MEDS: MIDAZOLAM HCL 1 MG/ML 2ML VIAL ONE (15:37)
[2024-02-12] MEDS: HEPARIN (PORCINE) 1000 UNIT/ML 10 ML (CATH LAB USE ONLY) ONE (15:37)
[2024-02-12] MEDS: OPTIRAY 350 ONE (15:38)
[2024-02-12] MEDS: IODIXANOL (VISIPAQUE) 320 MG/ML 100ML IV ONE (15:38)
[2024-02-12] MEDS: NITROGLYCERIN/D5W 100MCG/ML 20ML SYR ONE (15:40)
--- NOTE | 2024-02-12 15:54 | Pre Anesthesia Assessment ---
Date of Service February 12, 2024 Pre Sedation Assessment Vital Signs Temp Pulse Pulse Resp BP Pulse Ox O2 Del Method 02/12/24 15:46 79 15 104/75 95 Room Air 02/12/24 12:04 84 02/12/24 10:11 74 16 109/61 93 Room Air 02/12/24 09:30 Room Air 02/12/24 07:12 97.9 F 71 16 127/76 95 Room Air 02/12/24 02:44 98.6 F 76 20 131/68 96 Room Air 02/11/24 22:41 97.9 F 81 18 116/65 95 Room Air 02/11/24 20:00 Room Air 02/11/24 20:00 97.9 F 83 16 119/79 Room Air 02/11/24 16:06 Room Air Cardiovascular + regular rate Respiratory + respiratory effort normal Pre-Sedation Airway Assessment Smoking Status: Never smoker Hx Sleep Apnea: No Thyromental Distance: < 3.5 Finger Breadths Mallampati Class: III ASA: ASA3 Procedure Planning Contraindications for Sedation: none Current Medications Reviewed: Yes Notes The planned sedation has been discussed with the patient. Informed Consent was obtained. I have identified the patient, determined the appropriateness of sedation and have assessed the patient immediately prior to the procedure. All medicine(s) and interventions are by my order.
--- NOTE | 2024-02-12 15:54 | Post Anesthesia Assessment ---
Date of Service February 12, 2024 Post Sedation Assessment Vital Signs Temp Pulse Pulse Resp BP Pulse Ox O2 Del Method 02/12/24 15:46 79 15 104/75 95 Room Air 02/12/24 12:04 84 02/12/24 10:11 74 16 109/61 93 Room Air 02/12/24 09:30 Room Air 02/12/24 07:12 97.9 F 71 16 127/76 95 Room Air 02/12/24 02:44 98.6 F 76 20 131/68 96 Room Air 02/11/24 22:41 97.9 F 81 18 116/65 95 Room Air 02/11/24 20:00 Room Air 02/11/24 20:00 97.9 F 83 16 119/79 Room Air 02/11/24 16:06 Room Air Recovery Score Activity: Moves 4 extremities Respiration: Deep Breath/Cough Circulation: +/-20% PreAnes Value Consciousness: Fully Awake Oxygen Saturation: > 92% On Room Air Post Anesthesia Score: 10 Discharge Sedation Level of Care: Fast Track Phase II Post Sedation Plan On clinical assessment, the patient appears to have tolerated the sedation without complications. Patient is recovering as anticipated. Patient will continue to be monitored by nursing and may be discharged when sedation discharge criteria are met per below protocol. Upon Completions of procedure up to 15 minutes continue every 5 minute vital signs and the P.A.R. score; then discharge to a Phase I or Fast Track to Phase II per the following guidelines: * Discharge Patient to appropriate Phase II area if PAR is 8 or greater or return to pre- procedure baseline. The post - procedure orders will be as directed. * If PAR score is less than 8 or not return to pre-procedure baseline then patient will follow Phase I monitoring till PAR is reached for Phase II. The Phase I may be done in procedure room or may call to secure a Phase I area. * If naloxone or flumazenil are used for reversal, hold in Phase I for continued monitoring from when last reversal dose was given for a minimum of 60 minutes or longer pending the nurse and/or physician discretion of patient condition before discharge to Phase II. Please call the Sedation Physician to re-evaluate and complete post-note for discharge to Phase II area. Do NOT discharge from procedure sedation or Phase 1 until post- sedation evaluation note is complete by procedure /sedation MD Sedation Discharge Instructions to be given to the patient at discharge to home.
--- NOTE | 2024-02-12 16:06 | Endovascular Procedure Note ---
[facility] Endovascular Procedure Rpt Pre & Post Diagnosis Diabetic foot ulcer No significant right lower extremity peripheral arterial disease I identified the patient and participated in the time-out.: Yes Procedure Operation Date: 02/12/24 12:00 Actual Procedures p Angio Extremity Unilateral - Nader Adams MD Surgeon Nader Adams MD Oiler Bander Deibler Estimated Blood Loss 10 Findings See Below Abdominal aorta--no significant aneurysmal or stenotic disease Right lower extremity-- -Common iliacwidely patent -External iliacwidely patent -PATTERNMAKER BENCH, profunda widely patent -SFAwidely patent -Poplitealwidely patent -ATAwidely patent into the foot -DISASSEMBLER PRODUCT-widely patent into the foot -Peronealwidely patent the ankle -DPA patent with a forefoot, medial/lateral plantar arteries small, mild to moderate disease but patent into the midfoot Anesthesia Type RN Sedation Radiation Exposure (mGv) Radiation (mGy): 1,017 Contrast Contrast: 80 Complications none Disposition Accompanied Patient To Recovery: Yes Disposition: PCU Description of Procedure Right radial artery access obtained with placement of short 5Fr sheath placed Abdominal aortogram with pigtail catheter. Selective angiography with MPA in common iliac and long 0.35 seeker catheter placed in the SFA Angiography revealed widely patent right lower extremity arterial system from iliacs through tibial arteries with patent DPA and pedal arteries. Contrast used: 80 mL Moderate sedation: [id number] Access closure: TR band Summary: 1. Right lower extremity --no significant arterial disease in the right leg from iliacs through tibial arteries. Pedal vessels patent with direct inline flow to the heel. 2. Abdominal aortano AAA or obstructive disease Recommendations: No targets for revascularization. Arterial blood flow to wound base is optimized. Continue ASCVD risk factor modification Will consider venous ablation next week to improve lower extremity swelling/venous ulcer I attest to the content of the Intraoperative Record and any orders documented therein. Any exceptions are noted below. Vascular Charges Angiography/Venography Procedure 1: Angiography/Venography charges: [id number] Aortography, abd + b/l iliofem LE, catheter, radiological S&I Procedure 2: Angiography/Venography charges: [id number] Initial 3rd order or selective abd, pelvic, or LE branch Additional Services Procedure 1: Additional Services Charges: 50756 Moderate sedation initial 15 min Procedure 2: Additional Services Charges: 06761 Moderate sedation, each additional 15 min
--- NOTE | 2024-02-12 16:14 | Vascular Medicine ProgressNote ---
Date of Service February 12, 2024 Assessment & Plan (1) 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: Plan: 2. Osteomyelitis 3. PADsuspected inflow disease 4. Venous ulceration 5. CVI/lymphedema 6. HFrEF 7. Permanent AF on anticoagulation 8. Post prior left BKA 9. Morbid obesity 10. Stage III CKD Angiogram today revealed no significant PAD in the right lower extremity arterial system. No targets for revascularization. Arterial blood supply to heel wound is optimized. Edema improved from admission post diuresis but has known venous insufficiency and may still benefit from vein ablation in terms of wound healing and preventing of future swelling/ulceration. Will try to do right GSV remnant/right SSV Clarivein ablation next week if still in hospital. If discharged before then can arrange as an outpatient. Admission and Anticipated Discharge Date Admission Date: February 09, 2024 Subjective Minimal pain in right leg overnight. Underwent right lower extremity angiogram today. Procedure uncomplicated. No significant discomfort post procedure Review of Systems Review of Systems: All systems reviewed & are unremarkable except as noted in HPI & below Physical Exam Physical Exam: General: Comfortable, no acute distress Eyes: Sclerae anicteric Lungs: Clear to auscultation bilaterally Cardiac: Irregular irregular Abdomen: Soft, nontender Neuro: Nonfocal Psych: Alert orient x3, normal affect and mood Extremities/Vascular: -- TR band in place of her right radial -- Anterior mcknight wound dressed, heel wound dressed -- 1+ lower extremity edema to mid mcknight with chronic venous stasis changes, erythema/stasis dermatitis Results & Data Vital Signs (Past 12 Hours) Vital Signs Temp Pulse Pulse Resp BP Pulse Ox O2 Del Method 02/12/24 15:46 79 15 104/75 95 Room Air 02/12/24 12:04 84 02/12/24 10:11 74 16 109/61 93 Room Air 02/12/24 09:30 Room Air 02/12/24 07:12 97.9 F 71 16 127/76 95 Room Air PG Care Time/CCT Total # of Minutes Spent Total Time Spent with Patient: Total time spent is greater than 50% in coordination of care (as documented) at patient's floor/unit and/or counseling patient: Coding Level of Care Code 40375 SUB INP/OBS CARE 2/35MIN Diagnoses 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 E11.628; L08.9
--- NOTE | 2024-02-12 17:14 | Hospitalist Progress Note ---
Date of Service February 12, 2024 Assessment & Plan (1) Leg wound, right: Plan: 58-year-old male with past medical history significant for type 2 diabetes, diabetic polyneuropathy, diabetic retinopathy, testicular hypofunction, hyperlipidemia, hypothyroidism, obstructive sleep apnea, asthma in remission, chronic systolic and diastolic CHF, history of CAD, history of pulmonary hypertension, history of ventricular tachycardia, status post AICD, history of atrial fibrillation, history of chronic cor pulmonale, peripheral artery disease, venous stasis ulcers, hypertension, morbid obesity, vitamin D deficiency, chronic ulcer of the right lower leg, anemia, status post left BKA, depression, statin intolerance, currently residing at [facility] comes for possible PICC placement and IV antibiotics for left right lower leg wound. Patient is following with the wound care. Wound VAC placed on right foot about couple of weeks ago per patient. Few days ago last Thursday biopsy of the right foot was done. Patient does not know the results of the biopsy. Seems [facility] not [facility] and was not started on antibiotics. Patient says he called EMS and came here. We do not have records of the wound care currently. Denies any fever. Has pain in the right leg. Ambulates with a cane. Somewhat constipated. Denies any blood in the stools. Micturating okay. Denies abdominal pain. No nausea. No chest pain. No shortness of breath. No headache no dizziness. No blurred vision. No sore throat or cough. Hemodynamics are okay.Ambulates with cane.States last several days not taking Coumadin in anticipation of PICC line placement. 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 No obvious deep venous thrombus is seen. Soft tissue edema is noted. --RLE Arterial Doppler:The distal superficial femoral artery and the distal popliteal artery were not visualized and patency is not confirm. The proximal posterior tibial and peroneal arteries are patent. The mid to distal portions of the vessels are not identified and patency could not be assessed. The anterior tibial artery and the dorsalis pedis artery are patent. --Foot CT:Findings compatible with osteomyelitis about a large heel ulcer. No drainable abscess is seen. --S/P right foot calcanectomy --S/P right lower extremity angiogram:no significant arterial disease in the right leg from iliacs through tibial arteries. Pedal vessels patent with direct inline flow to the heel. No targets for revascularization. -- Follow-up wound cultures -- Given CHATO, vancomycin changed to Daptomycin. Also on IV Zosyn -- Appreciate podiatry, vascular input --Warfarin on hold Pain control Will need venous ablation next week Resume IV Bumex Monitor volume status closely Acute on Chronic HFrEF H/O VT s/p AICD LVEF 35 to 39%, 05/2022. Strict I&O. daily weights Continue metoprolol Entresto held due to low blood pressure Hold p.o. torsemide Monitor renal function, electrolytes Replete electrolytes as needed Continue IV Bumex CHATO on CKD stage III Baseline creatinine 1.2-1.3 Creatinine 1.6 today Avoid nephrotoxic agents as able Monitor renal function Hypokalemia Secondary to diuretics Replace and monitor Hyponatremia Sodium 132>135 Likely due to diuretics Monitor sodium levels Total bilirubin 1.6 Seems chronic elevation Chronic cor pulmonale Ischemic cardiomyopathy Chronic venous stasis H/O VT S/P ablation S/P AICD Peripheral vascular disease Continue aspirin Hold statin while on Dapto DM II HbA1c 7.5 Continue insulin while hospitalized Hold Januvia Monitor blood sugars Obstructive sleep apnea BiPAP nightly Permanent atrial fibrillation Continue metoprolol Patient states Coumadin held for last few days in anticipation of PICC line placement Held Coumadin for procedure Monitor Hypertension Continue current medications Monitor BP GERD Continue PPI Hypothyroidism Continue levothyroxine Diabetic polyneuropathy On Lyrica DVT Px: Heparin SQ for now Restart Coumadin as able CODE STATUS Full code Admission and Anticipated Discharge Date Admission Date: February 09, 2024 Subjective Patient is seen and examined at bedside Patient had right lower extremity angiogram today States having soreness of her right leg postprocedure Otherwise no complaints Denies any chest pain, dyspnea, nausea, vomiting, abdominal pain Review of Systems Review of Systems: All systems reviewed & are unremarkable except as noted in Subjective Physical Exam Physical Exam: Physical Exam: Vitals signs as noted above General Appearance:Morbidly Obese, no apparent distress Head: normocephalic, Atraumatic Eyes: normal inspection, EOMI Neck: supple, Trachea midline Respiratory/Chest: Normal breath sounds, CTA, No accessory muscle use Cardiovascular: Irregularly irregular, No murmur Abdomen/GI:Soft, Non tender, Bowel sounds present Extremities/Musculoskeletal:normal inspection, LE edema, Erythema, Left BKA, RLE surgical site in dressing Neurologic/Psych:AAOX3, grossly no focal neurological deficits Skin: normal color, warm Results & Data Results & Data Vital Signs (Past 12 Hours) Vital Signs Temp Pulse Pulse Resp BP Pulse Ox O2 Del Method 02/12/24 15:46 79 15 104/75 95 Room Air 02/12/24 12:04 84 02/12/24 10:11 74 16 109/61 93 Room Air 02/12/24 09:30 Room Air 02/12/24 07:12 36.6 C 71 16 127/76 95 Room Air Laboratory Results Short CBC 02/12/24 Range/Units 05:24 WBC 6.55 (4.8-10.8) K/ul Hgb 13.7 L (14.0-18.0) g/dl Hct 42.2 (42.0-52.0) % Plt Count 319 (130-400) K/uL BMP 02/12/24 05:24 Sodium 135 L Potassium 3.8 D Chloride 94 L Carbon Dioxide 31 BUN 52 H Creatinine 1.66 H Glucose 182 H Calcium 9.1 (1) Leg wound, right Encounter type: initial encounter Qualified Code(s): S81.801A - Unspecified open wound, right lower leg, initial encounter
[2024-02-12] MEDS: LIDOCAINE 1% LOCAL 20 ML VIAL ONE (18:18)
[2024-02-12] MEDS: LANTUS PER UNIT CHARGE SC ONE (19:46)
[2024-02-13 06:38] LABS: Hematocrit (blood only) 40.4 % (42.0-52.0); Hemoglobin 13.2 g/dl (14.0-18.0); Mean Corpuscular Hemoglobin 27.6 pg (25.0-34.0); Mean Corpuscular Hgb Conc 32.7 g/dL (32.0-36.0); Mean Corpuscular Volume 84.5 fL (80.0-100.0); Mean Platelet Volume 9.5 fL (9.4-12.4); Platelet Count 314 K/uL (130-400); RDW Coefficient of Variation 18.5 % (11.5-14.5); RDW Standard Deviation 56.3 fL (36.4-46.3); Red Blood Count 4.78 M/uL (4.70-6.10); White Blood Count 7.16 K/ul (4.8-10.8)
[2024-02-13 06:48] LABS: BUN Creatinine Ratio 26.8 (10-20); Calcium 8.8 mg/dl (8.6-10.3); Creatinine Clr Calc Pharmacy 54.5 ml/min; Potassium 3.6 mmol/L (3.5-5.1)
[2024-02-13 07:19] LABS: INR 1.4 (0.9-1.1); Prothrombin Time 14.4 Seconds (9.0-12.0)
[2024-02-13] MEDS: POTASSIUM CHLORIDE CRTAB 20 MEQ TABCR PO SCH (09:21)
[2024-02-13] MEDS: LANTUS PER UNIT CHARGE SC SCH (09:21)
[2024-02-13] MEDS: MEROPENEM 500 MG in SYRINGE 0 ML IV SCH (12:30)
--- NOTE | 2024-02-13 15:25 | Hospitalist Progress Note ---
Date of Service February 13, 2024 Assessment & Plan (1) Leg wound, right: Plan: 58-year-old male with past medical history significant for type 2 diabetes, diabetic polyneuropathy, diabetic retinopathy, testicular hypofunction, hyperlipidemia, hypothyroidism, obstructive sleep apnea, asthma in remission, chronic systolic and diastolic CHF, history of CAD, history of pulmonary hypertension, history of ventricular tachycardia, status post AICD, history of atrial fibrillation, history of chronic cor pulmonale, peripheral artery disease, venous stasis ulcers, hypertension, morbid obesity, vitamin D deficiency, chronic ulcer of the right lower leg, anemia, status post left BKA, depression, statin intolerance, currently residing at [facility] comes for possible PICC placement and IV antibiotics for left right lower leg wound. Patient is following with the wound care. Wound VAC placed on right foot about couple of weeks ago per patient. Few days ago last Thursday biopsy of the right foot was done. Patient does not know the results of the biopsy. [facility] and was not started on antibiotics. Patient says he called EMS and came here. We do not have records of the wound care currently. Denies any fever. Has pain in the right leg. Ambulates with a cane. Somewhat constipated. Denies any blood in the stools. Micturating okay. Denies abdominal pain. No nausea. No chest pain. No shortness of breath. No headache no dizziness. No blurred vision. No sore throat or cough. Hemodynamics are okay.Ambulates with cane.States last several days not taking Coumadin in anticipation of PICC line placement. 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 No obvious deep venous thrombus is seen. Soft tissue edema is noted. --RLE Arterial Doppler:The distal superficial femoral artery and the distal popliteal artery were not visualized and patency is not confirm. The proximal posterior tibial and peroneal arteries are patent. The mid to distal portions of the vessels are not identified and patency could not be assessed. The anterior tibial artery and the dorsalis pedis artery are patent. --Foot CT:Findings compatible with osteomyelitis about a large heel ulcer. No drainable abscess is seen. --S/P right foot calcanectomy --S/P right lower extremity angiogram:no significant arterial disease in the right leg from iliacs through tibial arteries. Pedal vessels patent with direct inline flow to the heel. No targets for revascularization. --Wound culture 02/10: Growing Pseudomonas, gram-negative bacilli -- Given CHATO, vancomycin changed to Daptomycin -- IV Zosyn changed to meropenem Day #1 -- Appreciate podiatry, vascular input --Warfarin on hold Pain control Will need venous ablation next week Monitor volume status closely Patient refuses to be on diabetic diet/fluid restriction despite explaining the risks and complications Consulted infectious disease Hold diuresis due to CHATO Acute on Chronic HFrEF H/O VT s/p AICD LVEF 35 to 39%, 05/2022. Strict I&O. daily weights Continue metoprolol Entresto held due to low blood pressure Hold p.o. torsemide Monitor renal function, electrolytes Replete electrolytes as needed Hold IV Bumex due to CHATO CHATO on CKD stage III Baseline creatinine 1.2-1.3 Creatinine 2.2 today Avoid nephrotoxic agents as able Monitor renal function Diuretics held Consider nephrology evaluation if no improvement Hypokalemia Secondary to diuretics Replace and monitor Hyponatremia Sodium 132>135>136 Likely due to diuretics Monitor sodium levels Total bilirubin 1.6 Seems chronic elevation Chronic cor pulmonale Ischemic cardiomyopathy Chronic venous stasis H/O VT S/P ablation S/P AICD Peripheral vascular disease Continue aspirin Hold statin while on Dapto DM II HbA1c 7.5 Does not follow dietary restrictions as advised Continue insulin while hospitalized Hold Januvia Monitor blood sugars Obstructive sleep apnea BiPAP nightly Permanent atrial fibrillation Continue metoprolol Patient states Coumadin held for last few days in anticipation of PICC line placement Held Coumadin for procedure Monitor Hypertension Continue current medications Monitor BP GERD Continue PPI Hypothyroidism Continue levothyroxine Diabetic polyneuropathy On Lyrica DVT Px: Heparin SQ for now Restart Coumadin as able CODE STATUS Full code Admission and Anticipated Discharge Date Admission Date: February 09, 2024 Subjective Patient is seen and examined at bedside Complaints in the left fluid and food restrictions although explained about his medical conditions Reports having right foot pain Denies any chest pain, dyspnea, nausea, vomiting, abdominal pain No other complaints today Wound culture growing Pseudomonas Review of Systems Review of Systems: All systems reviewed & are unremarkable except as noted in Subjective Physical Exam Physical Exam: Physical Exam: Vitals signs as noted above General Appearance:Morbidly Obese, no apparent distress Head: normocephalic, Atraumatic Eyes: normal inspection, EOMI Neck: supple, Trachea midline Respiratory/Chest: Normal breath sounds, CTA, No accessory muscle use Cardiovascular: Irregularly irregular, No murmur Abdomen/GI:Soft, Non tender, Bowel sounds present Extremities/Musculoskeletal:normal inspection, LE edema, Erythema, Left BKA, RLE surgical site in dressing Neurologic/Psych:AAOX3, grossly no focal neurological deficits Skin: normal color, warm Results & Data Results & Data Vital Signs (Past 12 Hours) Vital Signs Temp Pulse Pulse Resp BP Pulse Ox O2 Del Method 02/13/24 11:04 37.0 C 82 19 127/78 94 Room Air 02/13/24 09:30 Room Air 02/13/24 08:00 37.0 C 85 19 139/63 96 Room Air 02/13/24 05:55 86 02/13/24 03:21 36.2 C L 73 16 127/77 95 Room Air Laboratory Results Short CBC 02/13/24 Range/Units 05:32 WBC 7.16 (4.8-10.8) K/ul Hgb 13.2 L (14.0-18.0) g/dl Hct 40.4 L (42.0-52.0) % Plt Count 314 (130-400) K/uL BMP 02/13/24 05:32 Sodium 136 Potassium 3.6 Chloride 94 L Carbon Dioxide 32 BUN 59 H Creatinine 2.20 H D Glucose 204 H Calcium 8.8 (1) Leg wound, right Encounter type: initial encounter Qualified Code(s): S81.801A - Unspecified open wound, right lower leg, initial encounter
[2024-02-13] MEDS: POLYETHYLENE (MIRALAX) 17 GM PACK PO PRN (16:05)
[2024-02-14 06:35] LABS: INR 1.3 (0.9-1.1); Prothrombin Time 13.9 Seconds (9.0-12.0)
[2024-02-14 06:40] LABS: BUN Creatinine Ratio 19.5 (10-20); Calcium 9.1 mg/dl (8.6-10.3); Creatinine Clr Calc Pharmacy 34.6 ml/min; Potassium 3.8 mmol/L (3.5-5.1)
[2024-02-14] MEDS ORDERED: MEROPENEM 500 MG in SYRINGE 0 ML IV SCH (09:15)
[2024-02-14] MEDS: LANTUS PER UNIT CHARGE SC SCH ×2 (09:23→21:01)
[2024-02-14] MEDS: LACTATED RINGER'S 1,000 ML IV SCH (10:08)
--- NOTE | 2024-02-14 10:54 | Ultrasound Report ---
US renal/blad retro comp CLINICAL HISTORY: CHATO TECHNIQUE: Multiple sonographic real-time images of the kidneys and bladder were obtained. COMPARISON: None available at the time of this dictation. FINDINGS: The right kidney measures 14.2 cm in length, and the left kidney measures 14.2 cm in length. The right kidney is normal in size, contour, cortical thickness, and echogenicity. No hydronephrosis is identified. No renal lesion is identified. The left kidney is normal in size, contour, cortical thickness and echogenicity. No hydronephrosis i s identified. No renal lesion is identified. The bladder is partially distended. No large intraluminal mass is seen. IMPRESSION: Unremarkable examination and in particular no evidence of hydronephrosis. ACT 112: Negative or not required by law. Electronically signed by: Fabrizio Pacheco M.D. 02/14/2024 10:52 AM
--- NOTE | 2024-02-14 12:11 | Pharmacy Report ---
Pharmacy Glycemic Short Note 2 - Date of Service February 14, 2024 - Glycemic Short BSG Results (Last 24 hours): 02/13/24 02/13/24 02/13/24 12:31 12:35 13:38 Glucose POC Glucose 159 H 177 H 142 H 02/13/24 02/13/24 02/14/24 17:24 20:34 05:48 Glucose 179 H POC Glucose 144 H 137 H 02/14/24 02/14/24 07:58 11:59 Glucose POC Glucose 225 H 243 H OUTPATIENT ANTIDIABETIC REGIMEN: * Lantus 40 units SC BID * Novolog 10 units SC AC * Erastouvia * HbA1c 7.5% on 02/09/24 ASSESSMENT: 02/13: * Patient received total of 104 units of insulin yesterday, of which 60 units were basal insulin * Fasting BSG 179 mg/dL - patient's Scr trending up quickly, may scale back slightly on basal insulin this morning due to potential accumulation with ongoing CHATO * No change to CF/CR 02/11: * Patient NPO as of midnight again for angiogram today and thus Basal insulin held. Although NPO some carbs were covered by RN due to juice consumed with morning meds. * BSGs yesterday were 269-211-024-218 mg/dL. Fasting BSG this morning was 165 mg/dL. * Patient has not yet returned from his procedure. As such will plan to administer a one time basal dose when patient back on unit and resume BID dosing tomorrow morning. 02/10 * Patient NPO as of midnight last night for possible partial calcanectomy today. Also plan for possible angiogram tomorrow. * AM fasting BSG elevated, but delayed AM dose of Lantus 2nd NPO. AM dose to be given at lunch. Hesitant to increase Lantus today 2nd possible NPO tomorrow AM and low BSG of 80 mg/dL on admission when patient was receiving more basal. Will therefore not adjust Lantus for now. * BSG below goal range at dinner yesterday. Patient ate "100%" of lunch, but unclear how many CHO were consumed. 18 units admin at lunch, which would be an appropriate dose if the patient ate ~72g CHO. CHO consumed also not documented at breakfast, although 19 units of Novolog were administered then. Will re-assess CHO ratio after patient ordered a diet again. * BSG at lunchtime today elevated to 202 mg/dL - this was obtained post-op and patient also did not get correctional insulin this AM preop. Therefore will not adjust Novolog 02/08 * 58 yo M w T2DM known to our glycemic service from lengthy admission in Apr-May 2023 admitted 02/07 w diabetic foot infection and suspected osteomyelitis. * Outpatient regimen is basal heavy. Prior inpatient regimen reviewed - anticipated inpatient daily dose ~50-60 units/day. Will split BID to be c/w outpatient schedule * AM fasting BSG low at 80 units. Unclear if this is due to correctional insulin overnight or higher outpatient Lantus dose. Will loosen correction factor and reduce Lantus this AM. * Will tighten CHO ratio, although this will still be slightly looser than previous admit. Minimal PO intake with breakfast therefore not able to assess impact of this change. PLAN FOR INPATIENT GLYCEMIC CONTROL: * Hold outpatient oral diabetes medications * Basal insulin * Lantus 20 units QAM * Lantus 25-30 units HS * Bolus insulin * NovoLog per scale ACHS or Q6hrs while NPO * Goal Range: Low 110 mg/dL - High 140 mg/dL * Correction Factor: 20 mg/dL/unit * Nutritional / Prandial insulin per carb ratio of 1 unit per 4 grams CHO consumed
--- NOTE | 2024-02-14 13:49 | Hospitalist Progress Note ---
Date of Service February 14, 2024 Assessment & Plan (1) Leg wound, right: Plan: 58-year-old male with past medical history significant for type 2 diabetes, diabetic polyneuropathy, diabetic retinopathy, testicular hypofunction, hyperlipidemia, hypothyroidism, obstructive sleep apnea, asthma in remission, chronic systolic and diastolic CHF, history of CAD, history of pulmonary hypertension, history of ventricular tachycardia, status post AICD, history of atrial fibrillation, history of chronic cor pulmonale, peripheral artery disease, venous stasis ulcers, hypertension, morbid obesity, vitamin D deficiency, chronic ulcer of the right lower leg, anemia, status post left BKA, depression, statin intolerance, currently residing at [facility] comes for possible PICC placement and IV antibiotics for left right lower leg wound. Patient is following with the wound care. Wound VAC placed on right foot about couple of weeks ago per patient. Few days ago last Thursday biopsy of the right foot was done. Patient does not know the results of the biopsy. Seems care home did not had transportation and was not started on antibiotics. Patient says he called EMS and came here. We do not have records of the wound care currently. Denies any fever. Has pain in the right leg. Ambulates with a cane. Somewhat constipated. Denies any blood in the stools. Micturating okay. Denies abdominal pain. No nausea. No chest pain. No shortness of breath. No headache no dizziness. No blurred vision. No sore throat or cough. Hemodynamics are okay.Ambulates with cane.States last several days not taking Coumadin in anticipation of PICC line placement. Right leg wound/ulceration /cellulitis PVD/venous stasis/lymphedema Right Calcaneal osteomyelitis--POA S/p wound VAC in right foot S/p biopsy of right foot suggestive of early Osteo per [facility] W[facility] at [facility] grew E.Coli, Enterococcus faecalis (was on vancomycin, cefepime) Debrided at [facility] podiatry clinic, wound vac placed --Venous Doppler:Highly limited study with no evaluation of the distal popliteal vein or calf veins due to body habitus. No obvious deep venous thrombus is seen. Soft tissue edema is noted. --RLE Arterial Doppler:The distal superficial femoral artery and the distal popliteal artery were not visualized and patency is not confirm. The proximal posterior tibial and peroneal arteries are patent. The mid to distal portions of the vessels are not identified and patency could not be assessed. The anterior tibial artery and the dorsalis pedis artery are patent. --Foot CT:Findings compatible with osteomyelitis about a large heel ulcer. No drainable abscess is seen. --S/P right foot calcanectomy --S/P right lower extremity angiogram:no significant arterial disease in the right leg from iliacs through tibial arteries. Pedal vessels patent with direct inline flow to the heel. No targets for revascularization. --Wound culture 02/10: Growing Pseudomonas, gram-negative bacilli, Morganella -- Given CHATO, vancomycin changed to Daptomycin -- IV Zosyn changed to meropenem Day #2 -- Appreciate podiatry, vascular input --Warfarin on hold Pain control Will need venous ablation next week Monitor volume status closely Patient refuses to be on diabetic diet/fluid restriction despite explaining the risks and complications Consulted infectious disease--awaiting input Hold diuresis due to CHATO Continue current medications/renally adjusted Acute on Chronic HFrEF H/O VT s/p AICD LVEF 35 to 39%, 05/2022. Strict I&O. daily weights Continue metoprolol Entresto held due to low blood pressure Hold p.o. torsemide Monitor renal function, electrolytes Replete electrolytes as needed Hold IV Bumex due to CHATO CHATO on CKD stage III Baseline creatinine 1.2-1.3 --Renal USD:Unremarkable examination and in particular no evidence of hydronephrosis. Worsening renal function likely due to contrast use Cr 3.4 today Avoid nephrotoxic agents as able Monitor renal function Diuretics held, renally adjust medications as needed Consulted nephrology Monitor urine output Started gentle IV fluids Hypokalemia Secondary to diuretics Replace and monitor Hyponatremia Sodium 132>135 Monitor sodium levels Stable Total bilirubin 1.6 Seems chronic elevation Chronic cor pulmonale Ischemic cardiomyopathy Chronic venous stasis H/O VT S/P ablation S/P AICD Peripheral vascular disease Continue aspirin Hold statin while on Dapto DM II HbA1c 7.5 Does not follow dietary restrictions as advised Continue insulin while hospitalized Hold Januvia Monitor blood sugars Obstructive sleep apnea BiPAP nightly Permanent atrial fibrillation Continue metoprolol Patient states Coumadin held for last few days in anticipation of PICC line placement Held Coumadin for procedure Monitor Hypertension Continue current medications Monitor BP GERD Continue PPI Hypothyroidism Continue levothyroxine Diabetic polyneuropathy On Lyrica DVT Px: Heparin SQ for now Restart Coumadin as able CODE STATUS Full code Admission and Anticipated Discharge Date Admission Date: February 09, 2024 Subjective Patient is seen and examined at bedside Reports having decreased urination from his baseline Right foot pain is controlled No other complaints today Denies any chest pain, dyspnea, nausea, vomiting, abdominal pain Review of Systems Review of Systems: All systems reviewed & are unremarkable except as noted in Subjective Physical Exam Physical Exam: Physical Exam: Vitals signs as noted above General Appearance:Morbidly Obese, no apparent distress Head: normocephalic, Atraumatic Eyes: normal inspection, EOMI Neck: supple, Trachea midline Respiratory/Chest: Normal breath sounds, CTA, No accessory muscle use Cardiovascular: Irregularly irregular, No murmur Abdomen/GI:Soft, Non tender, Bowel sounds present Extremities/Musculoskeletal:normal inspection, LE edema, Erythema, Left BKA, RLE surgical site in dressing Neurologic/Psych:AAOX3, grossly no focal neurological deficits Skin: normal color, warm Results & Data Results & Data Vital Signs (Past 12 Hours) Vital Signs Temp Pulse Pulse Resp BP BP Pulse Ox 02/14/24 12:01 37.0 C 80 20 125/82 95 02/14/24 10:22 02/14/24 10:21 87 02/14/24 07:46 36.9 C 78 18 173/71 H 92 02/14/24 03:17 37.1 C 78 16 147/77 H 93 O2 Del Method 02/14/24 12:01 Room Air 02/14/24 10:22 Room Air 02/14/24 10:21 02/14/24 07:46 Room Air 02/14/24 03:17 Room Air Laboratory Results BMP 02/14/24 05:48 Sodium 135 L Potassium 3.8 Chloride 94 L Carbon Dioxide 31 BUN 67 H Creatinine 3.44 H D Glucose 179 H Calcium 9.1 (1) Leg wound, right Encounter type: initial encounter Qualified Code(s): S81.801A - Unspecified open wound, right lower leg, initial encounter
[2024-02-14] MEDS: MEROPENEM 500 MG in SYRINGE 0 ML IV SCH (15:05)
--- NOTE | 2024-02-14 16:14 | Nephrology Consultation ---
Date of Consultation February 14, 2024 Assessment & Plan (1) Acute kidney injury: Class 2 nonoliguric CHATO w/ baseline creatinine of 1.3 (but labile) in the setting of aggressive obligate diuresis, IV contrast for angiography, IV abtx for RLE infection. Likeliest prerenal versus ischemic ATN. No indication currently for urgent dialysis. chemistries acceptable. mild hypovolemia being addressed -strict I/O; continue daily weight -Agree w/ 2L LR. -UACM ordered -continue to hold diuretics and to avoid further IV contrast -daily bmp History of Present Illness Reason for Consultation: CHATO Requesting Physician: Dr Allen Attending Physician: Tommy Allen MD History of Present Illness 58 y/o M whom I'm asked to see for CHATO was admitted 02/08 for IV abtx to manage chronic RLE wound in the setting CHATO on CKD and chronic combined systolic and diastolic heart failure. PMH includes DM2 w/ triopathy, CAD, chronic combined systolic and diastolic heart failure, NINA c/b pulmonary HTN, h/o v tach s/p AICD and permanent a fib, peripheral arterial disease, chronic lymphedema/ venous stasis ulcers of RLE and s/p L BKA, hyperlipidemia, hypothyroidism, class 3 obesity, depression. He had wound vac placed on R foot a few weeks prior to admission and has been following w/ wound clinic. Has been having trouble getting transportation and IV abtx at facility. His presenting creatinine was 1.7; baseline is about 1.3 but can be labile. He was at or better than baseline earlier this month. His creatinine hovered in the mid ones for some time after admission until uptrending yesterday to 2.2 and today to 3.4. On 02/10 he underwent R calcanectomy; on 02/11 he had RLE angiography w/ 80 mL IV contrast which showed optimized RLE wound arterial blood supply and no revascularization targets. No other IV contrast this admission. A venous ablation procedure is under consideration for this coming week. He is currently receiving 2L LR; his daily 60 mg torsemide was last dosed 02/09. However he was receiving bumex IV bid 3 mg from 02/09 AM until yesterday AM. He is getting meropenem and daptomycin IV. He was also dosed w/ vancomycin on 02/08 & 10/16. He has not been hypoxic. He has not had hemodynamic instability on chart review. His bedscale weight has gone from 165 kg at admission to 153.3 yesterday am. 1.5L UOP so far today. chronic RLE pain. no F/c; no n/v/d/abd pain; + mild constipation. no new/worrisome voiding sx. no chest pain or palpitations. no sob, cough, wheeze. Allergies Allergy/AdvReac Type Severity Reaction Status Date / Time benzonatate AdvReac Intermediate choking, Verified 01/07/24 13:17 gagging Home Medications Medication Instructions Recorded Confirmed Type Lantus Solostar U-100 Insulin 40 units SC BID 02/08/24 02/09/24 History acetaminophen 325 mg tablet 650 mg PO QID PRN Pain 02/08/24 02/09/24 History (Tylenol) aspirin 81 mg tablet,delayed 81 mg PO DAILY 02/08/24 02/09/24 History release atorvastatin 80 mg tablet 80 mg PO DAILY 02/08/24 02/09/24 History bisacodyl 10 mg rectal suppository 10 mg GA DAILY PRN Constipation 02/08/24 02/09/24 History (Dulcolax (bisacodyl)) cefepime 2 gram solution for 2 g IV BID 02/08/24 02/09/24 History injection ergocalciferol (vitamin D2) 50,000 50,000 unit PO WK 02/08/24 02/09/24 History unit tablet ferrous sulfate 325 mg (65 mg 325 mg PO BID 02/08/24 02/09/24 History iron) tablet hyoscyamine sulfate 0.125 mg tablet 0.125 mg PO Q4H PRN Abdominal Pain 02/08/24 02/09/24 History insulin aspart U-100 100 unit/mL 10 unit subcut AC 02/08/24 02/09/24 History subcutaneous solution (Novolog U-100 Insulin aspart) levothyroxine 88 mcg tablet 88 mcg PO DAILY 02/08/24 02/09/24 History metolazone 2.5 mg tablet 2.5 mg PO UD 02/08/24 02/09/24 History metoprolol tartrate 50 mg tablet 50 mg PO TID 02/08/24 02/09/24 History multivitamin,cv-ikec-Vo-FA-min 1 tab PO DAILY 02/08/24 02/09/24 History nystatin 1 applic EXT UD 02/08/24 02/09/24 History omeprazole 20 mg capsule,delayed 20 mg PO DAILY 02/08/24 02/09/24 History release oxycodone 10 mg tablet 20 mg PO Q4H PRN Pain, Severe 02/08/24 02/09/24 History potassium chloride 20 mEq 20 meq PO BID 02/08/24 02/09/24 History tablet,extended release(part/cryst) pregabalin 50 mg capsule 50 mg PO BID 02/08/24 02/09/24 History sitagliptin phosphate 50 mg tablet 50 mg PO DAILY 02/08/24 02/09/24 History (Januvia) sennosides 8.6 mg-docusate sodium 2 tab-cap PO HS 02/09/24 02/09/24 History 50 mg tablet (Senna-S) spironolactone 25 mg tablet 25 mg PO DAILY 02/09/24 02/09/24 History torsemide 60 mg PO DAILY 02/09/24 02/09/24 History triamcinolone acetonide 0.1 % 1 applic topical TID 02/09/24 02/09/24 History lotion warfarin 3 mg tablet 3 mg PO DAILY 02/09/24 02/09/24 History Patient History Medical History Depression with suicidal ideation Acute osteomyelitis of left foot T2DM (type 2 diabetes mellitus) CHF (congestive heart failure) Acute on chronic combined systolic (congestive) and diastolic (congestive) heart failure Diabetic ulcer of right foot Sustained ventricular tachycardia Pneumonia due to COVID-19 virus SARS-CoV-2 positive Sepsis Cellulitis of left lower leg Diabetic ulcer of left heel associated with diabetes mellitus due to underlying condition, limited to breakdown of skin Acute on chronic renal failure Acute hypoxemic respiratory failure Sleep apnea BIPAP Rectal bleeding Depression Deformity of foot Adams fracture Base of left fifth metatarsal, nonhealing x years Diabetic ulcer of left foot associated with type 2 diabetes mellitus, with fat layer exposed Hx of sepsis 06/2019 Arthritis Venous stasis ulcer of right lower leg with edema of right lower leg Hypokalemia Bacteremia due to group B Streptococcus Lymphedema Sustained VT (ventricular tachycardia) GERD (gastroesophageal reflux disease) Hx of osteomyelitis Hx of myocardial infarction found on testing Asthma well controlled, daily snf 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 CKD (chronic kidney disease) stage 3, GFR 30-59 ml/min Surgical History History of esophagogastroduodenoscopy (EGD) H/O foot surgery LEFT FOOT ULCER DEBRIDEMENT H/O cardiac radiofrequency ablation OCTOBER 2019 ([facility]) [facility] History of cardiac cath V. tach -- no stent. 06/2019. unsure where it was done History of sinus surgery Hx of tonsillectomy History of colonoscopy Hx of amputation of lesser toe H/O shoulder surgery left Family History Sister Family history of diabetes mellitus 2 Grandmother (Maternal) Family history of diabetes mellitus Grandfather (Maternal) Family history of diabetes mellitus Father Cancer Mother Cancer Other No family history of adverse response to anesthesia Social History Smoking Status: Never smoker Second Hand Exposure: No; Do You Dip or Chew Tobacco: No; Hx Alcohol Use: Yes Alcohol type: hard liquor Hx Substance Use: No Preferred Language: Chadian 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 Required: No Beliefs That Will Affect Care: None marital status: Current Living Situation: Alone current occupational status: disabled How many Children do You have: 3 Feels Safe at Home: Yes Safety Concerns: Feels Safe At This Time Assistive Devices: Cane, Walker and Wheelchair Review of Systems 2 Review of Systems: All systems reviewed & are unremarkable except as noted in HPI & below Physical Exam 2 Constitutional: well developed, well nourished, + morbidly obese and cooperative; no acute distress ENMT: Mouth: + dry oral mucous membranes Respiratory: normal respiratory effort Auscultation: + diminished lung sounds and + crackles (bibasilar) Cardiovascular: Rate/Rhythm: + irregularly irregular Extremities: no edema Musculoskeletal: Extremities: strength 5/5 throughout Skin: no rashes, warm and dry (L BKA; RLE dressing blood soaked) Neurologic: harvey, fluent speech, + fine resting tremors/twitching Psychiatric: Orientation: alert and oriented x 3 Insight: + limited insight Results & Data Vital Signs (Past 12 Hours) Vital Signs Temp Pulse Pulse Resp BP Pulse Ox O2 Del Method 02/14/24 15:42 79 02/14/24 15:31 36.8 C 78 18 127/78 95 Room Air 02/14/24 12:01 37.0 C 80 20 125/82 95 Room Air 02/14/24 10:22 Room Air 02/14/24 10:21 87 02/14/24 07:46 36.9 C 78 18 173/71 H 92 Room Air Laboratory Results 02/13/24 05:32 02/14/24 05:48 Diagnostic Findings Renal u/s today > 14 cm kidneys BL w/o obstruction or renal lesions
[2024-02-14 22:25] LABS: Magnesium 2.3 mg/dl (1.7-2.4)
[2024-02-14] MEDS: POTASSIUM CHLORIDE PWD 20 MEQ PACK PO STA (22:38)
--- NOTE | 2024-02-14 23:34 | Podiatry Progress Note ---
Date of Service February 14, 2024 Assessment & Plan (1) Wound, open, foot with complication: (2) Leg wound, right: (3) Cellulitis of right leg: (4) PVD (peripheral vascular disease): (5) 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: (6) H/O osteomyelitis: (7) Osteomyelitis of foot, right, acute: Plan - Pt examined and evaluated - CT confirms osteomyelitis, which is fairly extensive, to the anterior plantar calcaneal tuberosity. - Extensive non-viable tissue was able to be excised from the heel without incident. - Will benefit from wound vac placement, likely tomorrow - Dressing can be removed, packing removed by nursing today. Otherwise, will perform tomorrow. - Vascular assessment is encouraging. Will still need aggressive wound care, diabetic control to attempt limb salvage. Admission and Anticipated Discharge Date Admission Date: February 09, 2024 Subjective Seen at bedside earlier POD #3. Doing well. Has had bleeding to dressing. Had CTA of RLE yesterday with encouraging results. In renal ultrasound currently, seen just before imaging exam. Denies any new s/s of infection. Recovering well from the excisional debridement/biopsy. Review of Systems Constitutional: + fever, + chills and + weakness; no fat igue Eyes: no problem reported Ear, Nose, Mouth, Throat: no problem reported Respiratory: no problem reported Cardiovascular: + edema; no problem reported Gastrointestinal: no nausea, no vomiting and no problem reported Musculoskeletal: + deformity, + limited range of motion a nd + muscle weakness Integumentary: + non-healing lesions, + changing lesion s, + skin ulcer, + wounds and + erythema Neurologic: + loss of sensation, + numbness and + pa resthesia; no generalized weakness Psychiatric: no problem reported Physical Exam Physical Exam: RLE focused exam: Bleeding strikethrough noted to right surgical dressing. Left intact due to timing with pending ultrasound. No purulent drainage noted to the dressing. Constitutional: WD/WN, vitals as above + ill appearing and + morbidly obese; no acute distress Eyes: PERRL, conjunctivae normal, anicteric sclerae ENMT: external ear and nose normal, oropharynx normal Neck: trachea midline, no thyromegaly normal visual inspection Respiratory: normal respiratory effort; no respiratory distress Cardiovascular: Rate/Rhythm: regular rate and regular rhythm Chest (Breasts): Chest: normal inspection of chest Gastrointestinal (Abdomen): Inspection/Auscultation: abdomen normal to inspection Percussion/Palpation: + abdomen tender and abdomen soft Musculoskeletal: no cyanosis or clubbing, extremities motor strength 5/5 Head/Neck/Chest: normocephalic and head atraumatic Extremities: + amputation noted (Left BKA) Skin: + ulcer, + skin tightening, + wound, + s kin atrophy and + erythema Neurologic: awake; + abnormal touch/pain/proprioception, + abnormal sensation to monofilament and no focal motor deficits Psychiatric: A+Ox3, euthymic affect Results & Data Results & Data Vital Signs (Past 12 Hours) Vital Signs Temp Pulse Pulse Resp BP BP Pulse Ox 02/14/24 21:38 36.7 C 76 18 133/83 95 02/14/24 20:02 37.0 C 81 20 121/53 L 95 02/14/24 15:42 79 02/14/24 15:31 36.8 C 78 18 127/78 95 02/14/24 12:01 37.0 C 80 20 125/82 95 O2 Del Method 02/14/24 21:38 Room Air 02/14/24 20:02 Room Air 02/14/24 15:42 02/14/24 15:31 Room Air 02/14/24 12:01 Room Air (1) Wound, open, foot with complication Encounter type: initial encounter Laterality: right Qualified Code(s): S91.301A - Unspecified open wound, right foot, initial encounter (2) Leg wound, right Encounter type: initial encounter Qualified Code(s): S81.801A - Unspecified open wound, right lower leg, initial encounter
[2024-02-15 01:01] LABS: Appearance Urine Cloudy (Clear); Bacteria Urine Automated None Seen (None Seen); Bilirubin Urine Negative (Negative); Blood Urine Negative (Negative); Color Urine Dark Yellow; Epithelial Cell Urine Auto 0-2 /hpf (0-2); Glucose Urine UA Trace (Negative); Ketones Urine Trace (Negative); Leukocyte Esterase Urine Trace (Negative); Nitrite Urine Negative (Negative); Protein Urine 3+ (Negative); RBC Urine Automated 0-2 /hpf (0-2); Specific Gravity Urine 1.022 (1.000-1.030); Urobilinogen Urine Negative (Negative); WBC Urine Automated 0-5 /hpf (0-5)
[2024-02-15 07:24] LABS: Anion Gap 11 (3-11); BUN Creatinine Ratio 16.2 (10-20); Blood Urea Nitrogen 82 mg/dl (6-23); Carbon Dioxide 28 mmol/L (21-32); Chloride 94 mmol/L (98-107); Creatinine Clr Calc Pharmacy 23.4 ml/min; Glucose 206 mg/dl (70-99(Fasting)); Sodium 133 mmol/L (136-145)
[2024-02-15 07:24] LABS: INR 1.3 (0.9-1.1); Prothrombin Time 13.8 Seconds (9.0-12.0)
--- NOTE | 2024-02-15 11:48 | XRay Report ---
KUB HISTORY: Acute generalized abdominal pain Abd Pain COMPARISON: Renal ultrasound 02/14/2024, CT 05/26/2023 FINDINGS: Moderate gaseous distention of the stomach. Moderate colonic fecal retention. Nonobstructiv e bowel gas pattern. Limited study secondary to patient body habitus with portions of the abdomen out side the [id number]. No renal calculi. No ureteral calculi. No pneumoperitoneum or pneumatosis. C alcifications of the vas deferens. No fracture. IMPRESSION: Moderate colonic fecal retention with nonobstructive bowel gas pattern. ACT 112: Negative or not required by law. The above report was generated using voice recognition software. It may contain grammatical, syntax o r spelling errors. Electronically signed by: Carlos Johnson M.D. 02/15/2024 11:46 AM
--- NOTE | 2024-02-15 12:57 | Hospitalist Progress Note ---
Date of Service February 15, 2024 Assessment & Plan (1) Leg wound, right: Plan: 58-year-old male with past medical history significant for type 2 diabetes, diabetic polyneuropathy, diabetic retinopathy, testicular hypofunction, hyperlipidemia, hypothyroidism, obstructive sleep apnea, asthma in remission, chronic systolic and diastolic CHF, history of CAD, history of pulmonary hypertension, history of ventricular tachycardia, status post AICD, history of atrial fibrillation, history of chronic cor pulmonale, peripheral artery disease, venous stasis ulcers, hypertension, morbid obesity, vitamin D deficiency, chronic ulcer of the right lower leg, anemia, status post left BKA, depression, statin intolerance, currently residing at [facility] comes for possible PICC placement and IV antibiotics for left right lower leg wound. Patient is following with the wound care. Wound VAC placed on right foot about couple of weeks ago per patient. Few days ago last Thursday biopsy of the right foot was done. Patient does not know the results of the biopsy. Seems [facility] did not had transportation and was not started on antibiotics. Patient says he called EMS and came here. We do not have records of the wound care currently. Denies any fever. Has pain in the right leg. Ambulates with a cane. Somewhat constipated. Denies any blood in the stools. Micturating okay. Denies abdominal pain. No nausea. No chest pain. No shortness of breath. No headache no dizziness. No blurred vision. No sore throat or cough. Hemodynamics are okay.Ambulates with cane.States last several days not taking Coumadin in anticipation of PICC line placement. Right leg wound/ulceration /cellulitis PVD/venous stasis/lymphedema Right Calcaneal osteomyelitis--POA S/p wound VAC in right foot S/p biopsy of right foot suggestive of early Osteo per [employer] Wound Cultures at [facility] grew E.Coli, Enterococcus faecalis (was on vancomycin, cefepime) Debrided at [facility] podiatry clinic, wound vac placed --Venous Doppler:Highly limited study with no evaluation of the distal popliteal vein or calf veins due to body habitus. No obvious deep venous thrombus is seen. Soft tissue edema is noted. --RLE Arterial Doppler:The distal superficial femoral artery and the distal popliteal artery were not visualized and patency is not confirm. The proximal posterior tibial and peroneal arteries are patent. The mid to distal portions of the vessels are not identified and patency could not be assessed. The anterior tibial artery and the dorsalis pedis artery are patent. --Foot CT:Findings compatible with osteomyelitis about a large heel ulcer. No drainable abscess is seen. --S/P right foot calcanectomy --S/P right lower extremity angiogram:no significant arterial disease in the right leg from iliacs through tibial arteries. Pedal vessels patent with direct inline flow to the heel. No targets for revascularization. --Wound culture 02/10: Growing Pseudomonas, gram-negative bacilli, Morganella -- Given CHATO, vancomycin changed to Daptomycin -- IV Zosyn changed to meropenem Day #3 -- Appreciate podiatry, vascular input --Warfarin on hold Pain control Planned for venous ablation likely this week Monitor volume status closely Patient refuses to be on diabetic diet/fluid restriction despite explaining the risks and complications Consulted infectious disease--awaiting input Hold diuresis due to CHATO Daptomycin, meropenem renally adjusted Will need wound VAC per podiatry Acute on Chronic HFrEF H/O VT s/p AICD LVEF 35 to 39%, 05/2022. Strict I&O. daily weights Continue metoprolol Entresto held due to low blood pressure Hold p.o. torsemide Monitor renal function, electrolytes Replete electrolytes as needed Hold IV Bumex due to CHATO CHATO on CKD stage III Baseline creatinine 1.2-1.3 --Renal USD:Unremarkable examination and in particular no evidence of hydronephrosis. Worsening renal function likely due to contrast use Cr 5.0 today Avoid nephrotoxic agents as able Diuretics held, renally adjust medications as needed Appreciate nephrology input Monitor urine output/renal function Continue gentle IV fluids Constipation --KUB:Moderate colonic fecal retention with nonobstructive bowel gas pattern. Continue bowel regimen Minimize narcotic pain medications as able Hypokalemia Secondary to diuretics Replace and monitor Hyponatremia Sodium 132>133 Monitor sodium levels Stable Total bilirubin 1.6 Seems chronic elevation Chronic cor pulmonale Ischemic cardiomyopathy Chronic venous stasis H/O VT S/P ablation S/P AICD Peripheral vascular disease Continue aspirin Hold statin while on Dapto DM II HbA1c 7.5 Does not follow dietary restrictions as advised Continue insulin while hospitalized Hold Januvia Monitor blood sugars Obstructive sleep apnea BiPAP nightly Permanent atrial fibrillation Continue metoprolol Patient states Coumadin held for last few days in anticipation of PICC line placement Held Coumadin for procedure Monitor Hypertension Continue current medications Monitor BP GERD Continue PPI Hypothyroidism Continue levothyroxine Diabetic polyneuropathy On Lyrica DVT Px: Heparin SQ for now Restart Coumadin as able CODE STATUS Full code Admission and Anticipated Discharge Date Admission Date: February 09, 2024 Subjective Patient is seen and examined at bedside No significant leg pain today Renal function continues to worsen Has some abdominal discomfort today Denies any chest pain, dyspnea, nausea, vomiting, abdominal pain Discussed with nephrology today Review of Systems Review of Systems: All systems reviewed & are unremarkable except as noted in Subjective Physical Exam Physical Exam: Physical Exam: Vitals signs as noted above General Appearance:Morbidly Obese, no apparent distress Head: normocephalic, Atraumatic Eyes: normal inspection, EOMI Neck: supple, Trachea midline Respiratory/Chest: Normal breath sounds, CTA, No accessory muscle use Cardiovascular: Irregularly irregular, No murmur Abdomen/GI:Soft, Non tender, Bowel sounds present Extremities/Musculoskeletal:normal inspection, LE edema, Erythema, Left BKA, RLE surgical site in dressing Neurologic/Psych:AAOX3, grossly no focal neurological deficits Skin: normal color, warm Results & Data Results & Data Vital Signs (Past 12 Hours) Vital Signs Temp Pulse Pulse Resp BP Pulse Ox O2 Del Method 02/15/24 11:38 36.7 C 65 20 133/73 94 Room Air 02/15/24 09:09 Room Air 02/15/24 07:56 36.3 C L 71 20 101/60 94 Room Air 02/15/24 07:38 74 02/15/24 03:02 37.0 C 69 18 116/72 93 Room Air 02/15/24 01:03 83 Laboratory Results BMP 02/15/24 02/15/24 06:21 08:15 Sodium 133 L Potassium TNP 4.3 Chloride 94 L Carbon Dioxide 28 BUN 82 H Creatinine 5.07 H* D Glucose 206 H Calcium 9.0 Urine 02/15/24 Range/Units 00:18 Urine Color Dark Yellow Urine Appearance Cloudy A (Clear) Urine pH 5.0 (4.5-7.5) Ur Specific [place] 1.022 (1.000-1.030) Urine Protein 3+ H (Negative) Urine Glucose (UA) Trace H (Negative) (1) Leg wound, right Encounter type: initial encounter Qualified Code(s): S81.801A - Unspecified open wound, right lower leg, initial encounter
--- NOTE | 2024-02-15 13:00 | Infectious Disease Consult ---
Date of Service February 15, 2024 Telehealth Information I performed this visit using a real-time telehealth connection between my location and the patients location ([facility]). After connecting through interactive tele-video, patient was identified by name and date of and/or wristband check.Patient (or authorized healthcare apprenticeship training representative) was informed that this was a telemedicine visit and it was being conducted confidentially over secure lines. My office door was closed and no one else was present in the room with me.Patient (or authorized healthcare apprenticeship training representative) provided consent to proceed with the visit, expressed an understanding of privacy and security of the telemedicine visit, and gave permission to have a hospital apprenticeship training representative in the room in order to assist with the visit and to conduct portions of the visit, as needed. I informed the patient (or authorized healthcare apprenticeship training representative) that I reviewed their record and presented the opportunity for them to ask any questions regarding the visit today. The patient agreed to participate. Assessment & Plan (1) Osteomyelitis of foot, right, acute: Plan: For the isolates growing on culture to date, I recommend to use renally-dosed meropenem (discuss the dosing with your pharmacist). Whether to use an additional agent depends on whether MRSA/Enterococcus is present. Please track down OSH records and contact me once these are available. In the meantime, you can substitute renally-dosed daptomycin if needed. I anticipate that the patient will need a 6-week course of IV ABX as there are very few PO options at this time. We will need to follow up [facility] cultures and adjust ABX PRN. These recommendations are not final. For subsequent recommendations, use the on- call schedule to find who is covering your facility. History of Present Illness History of Present Illness The patient was admitted for worsening appearance of a heel wound (in the context of DM and venous insufficiency). Workup revealed OM. The patient was seen by Podiatry and they took the patient for a calcanectomy (02/10). OR cultures were polymicrobial including MDR-PsA, Morganella and alcaligenes. Allergies Allergy/AdvReac Type Severity Reaction Status Date / Time benzonatate AdvReac Intermediate choking, Verified 01/07/24 13:17 gagging Home Medications Medication Instructions Recorded Confirmed Type Lantus Solostar U-100 Insulin 40 units SC BID 02/08/24 02/09/24 History acetaminophen 325 mg tablet 650 mg PO QID PRN Pain 02/08/24 02/09/24 History (Tylenol) aspirin 81 mg tablet,delayed 81 mg PO DAILY 02/08/24 02/09/24 History release atorvastatin 80 mg tablet 80 mg PO DAILY 02/08/24 02/09/24 History bisacodyl 10 mg rectal suppository 10 mg AL DAILY PRN Constipation 02/08/24 02/09/24 History (Dulcolax (bisacodyl)) cefepime 2 gram solution for 2 g IV BID 02/08/24 02/09/24 History injection ergocalciferol (vitamin D2) 50,000 50,000 unit PO WK 02/08/24 02/09/24 History unit tablet ferrous sulfate 325 mg (65 mg 325 mg PO BID 02/08/24 02/09/24 History iron) tablet hyoscyamine sulfate 0.125 mg tablet 0.125 mg PO Q4H PRN Abdominal Pain 02/08/24 02/09/24 History insulin aspart U-100 100 unit/mL 10 unit subcut AC 02/08/24 02/09/24 History subcutaneous solution (Novolog U-100 Insulin aspart) levothyroxine 88 mcg tablet 88 mcg PO DAILY 02/08/24 02/09/24 History metolazone 2.5 mg tablet 2.5 mg PO UD 02/08/24 02/09/24 History metoprolol tartrate 50 mg tablet 50 mg PO TID 02/08/24 02/09/24 History multivitamin,zt-tzud-Wu-FA-min 1 tab PO DAILY 02/08/24 02/09/24 History nystatin 1 applic EXT UD 02/08/24 02/09/24 History omeprazole 20 mg capsule,delayed 20 mg PO DAILY 02/08/24 02/09/24 History release oxycodone 10 mg tablet 20 mg PO Q4H PRN Pain, Severe 02/08/24 02/09/24 History potassium chloride 20 mEq 20 meq PO BID 02/08/24 02/09/24 History tablet,extended release(part/cryst) pregabalin 50 mg capsule 50 mg PO BID 02/08/24 02/09/24 History sitagliptin phosphate 50 mg tablet 50 mg PO DAILY 02/08/24 02/09/24 History (Januvia) sennosides 8.6 mg-docusate sodium 2 tab-cap PO HS 02/09/24 02/09/24 History 50 mg tablet (Senna-S) spironolactone 25 mg tablet 25 mg PO DAILY 02/09/24 02/09/24 History torsemide 60 mg PO DAILY 02/09/24 02/09/24 History triamcinolone acetonide 0.1 % 1 applic topical TID 02/09/24 02/09/24 History lotion warfarin 3 mg tablet 3 mg PO DAILY 02/09/24 02/09/24 History Patient History Medical History Depression with suicidal ideation Acute osteomyelitis of left foot T2DM (type 2 diabetes mellitus) CHF (congestive heart failure) Acute on chronic combined systolic (congestive) and diastolic (congestive) heart failure Diabetic ulcer of right foot Sustained ventricular tachycardia Pneumonia due to COVID-19 virus SARS-CoV-2 positive Sepsis Cellulitis of left lower leg Diabetic ulcer of left heel associated with diabetes mellitus due to underlying condition, limited to breakdown of skin Acute on chronic renal failure Acute hypoxemic respiratory failure Sleep apnea BIPAP Rectal bleeding Depression Deformity of foot Adams fracture Base of left fifth metatarsal, nonhealing x years Diabetic ulcer of left foot associated with type 2 diabetes mellitus, with fat layer exposed Hx of sepsis 06/2019 Arthritis Venous stasis ulcer of right lower leg with edema of right lower leg Hypokalemia Bacteremia due to group B Streptococcus Lymphedema Sustained VT (ventricular tachycardia) GERD (gastroesophageal reflux disease) Hx of osteomyelitis Hx of myocardial infarction found on testing Asthma well controlled, daily residential 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 CKD (chronic kidney disease) stage 3, GFR 30-59 ml/min Surgical History History of esophagogastroduodenoscopy (EGD) H/O foot surgery LEFT FOOT ULCER DEBRIDEMENT H/O cardiac radiofrequency [facility] History of cardiac cath V. tach -- no stent. 06/2019. unsure where it was done History of sinus surgery Hx of tonsillectomy History of colonoscopy Hx of amputation of lesser toe H/O shoulder surgery left Family History Sister Family history of diabetes mellitus 2 Grandmother (Maternal) Family history of diabetes mellitus Grandfather (Maternal) Family history of diabetes mellitus Father Cancer Mother Cancer Other No family history of adverse response to anesthesia Social History Smoking Status: Never smoker Second Hand Exposure: No; Do You Dip or Chew Tobacco: No; Hx Alcohol Use: Yes Alcohol type: hard liquor Hx Substance Use: No Preferred Language: Kazakh Communication Ability: Effective Lead Rider Required: No Beliefs That Will Affect Care: None marital status: Current Living Situation: Alone current occupational status: disabled How many Children do You have: 3 Feels Safe at Home: Yes Safety Concerns: Feels Safe At This Time Assistive Devices: Cane, Walker and Wheelchair Review of Systems As reviewed in HPI; a complete ROS was otherwise negative Physical Exam Vitals: see EMR Exam limited due to constraints of telemedicine Gen/Constitutional: appears at stated age, NAD, nontoxic Head: AT, NC Eyes: sclera anicteric, no conjunctival injection ENT: MMM, trachea midline Card: appears to be well-perfused Resp: not tachypneic, nml effort, symmetric chest rise, no accessory muscle use Derm: no visible diaphoresis, no visible rash, no visible jaundice Results & Data Vital Signs (Past 12 Hours) Vital Signs Temp Pulse Pulse Resp BP Pulse Ox O2 Del Method 02/15/24 11:38 36.7 C 65 20 133/73 94 Room Air 02/15/24 09:09 Room Air 02/15/24 07:56 36.3 C L 71 20 101/60 94 Room Air 02/15/24 07:38 74 02/15/24 03:02 37.0 C 69 18 116/72 93 Room Air 02/15/24 01:03 83 Laboratory Results SEE EMR Diagnostic Findings SEE EMR
[2024-02-15] MEDS: POLYETHYLENE (MIRALAX) 17 GM PACK PO SCH (13:03)
--- NOTE | 2024-02-15 13:06 | Pharmacy Report ---
Pharmacy Glycemic Short Note 2 - Date of Service February 15, 2024 - Glycemic Short BSG Results (Last 24 hours): 02/14/24 02/14/24 02/14/24 17:07 20:10 23:47 Glucose POC Glucose 196 H 183 H 137 H 02/15/24 02/15/24 02/15/24 06:21 08:14 11:58 Glucose 206 H POC Glucose 266 H 259 H OUTPATIENT ANTIDIABETIC REGIMEN: * Lantus 40 units SC BID * Novolog 10 units SC AC * Claire * HbA1c 7.5% on 02/09/24 ASSESSMENT: 02/14 * Patient received 114 total units of insulin yesterday. 55 were basal and 59 were bolus. * Fasting BSG was 266 today--lantus scale 25-35 units was ordered and patient got 35 units + 21 units of basal insulin. * SCr continuing to increase (5.07 today), so will continue to be cautious with basal insulin dosing. * BSG at lunch was still 259 so the carb ratio was tightened. 02/13: * Patient received total of 104 units of insulin yesterday, of which 60 units were basal insulin * Fasting BSG 179 mg/dL - patient's Scr trending up quickly, may scale back slightly on basal insulin this morning due to potential accumulation with ongoing CHATO * No change to CF/CR 02/11: * Patient NPO as of midnight again for angiogram today and thus Basal insulin held. Although NPO some carbs were covered by RN due to juice consumed with morning meds. * BSGs yesterday were 120-625-480-218 mg/dL. Fasting BSG this morning was 165 mg/dL. * Patient has not yet returned from his procedure. As such will plan to administer a one time basal dose when patient back on unit and resume BID dosing tomorrow morning. 02/10 * Patient NPO as of midnight last night for possible partial calcanectomy today. Also plan for possible angiogram tomorrow. * AM fasting BSG elevated, but delayed AM dose of Lantus 2nd NPO. AM dose to be given at lunch. Hesitant to increase Lantus today 2nd possible NPO tomorrow AM and low BSG of 80 mg/dL on admission when patient was receiving more basal. Will therefore not adjust Lantus for now. * BSG below goal range at dinner yesterday. Patient ate "100%" of lunch, but unclear how many CHO were consumed. 18 units admin at lunch, which would be an appropriate dose if the patient ate ~72g CHO. CHO consumed also not documented at breakfast, although 19 units of Novolog were administered then. Will re-assess CHO ratio after patient ordered a diet again. * BSG at lunchtime today elevated to 202 mg/dL - this was obtained post-op and patient also did not get correctional insulin this AM preop. Therefore will not adjust Novolog 02/08 * 58 yo M w T2DM known to our glycemic service from lengthy admission in Apr-May 2023 admitted 02/07 w diabetic foot infection and suspected osteomyelitis. * Outpatient regimen is basal heavy. Prior inpatient regimen reviewed - anticipated inpatient daily dose ~50-60 units/day. Will split BID to be c/w outpatient schedule * AM fasting BSG low at 80 units. Unclear if this is due to correctional insulin overnight or higher outpatient Lantus dose. Will loosen correction factor and reduce Lantus this AM. * Will tighten CHO ratio, although this will still be slightly looser than previous admit. Minimal PO intake with breakfast therefore not able to assess impact of this change. PLAN FOR INPATIENT GLYCEMIC CONTROL: * Hold outpatient oral diabetes medications * Basal insulin * Lantus scale (25-35 units) bid depending on BSG. * Bolus insulin * NovoLog per scale ACHS or Q6hrs while NPO * Goal Range: Low 110 mg/dL - High 140 mg/dL * Correction Factor: 20 mg/dL/unit * Nutritional / Prandial insulin per carb ratio of 1 unit per 3 grams CHO consumed
--- NOTE | 2024-02-15 14:20 | Vascular Medicine ProgressNote ---
Date of Service February 15, 2024 Assessment & Plan (1) 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: Plan: 2. Osteomyelitis 3. PADno significant disease on angiogram, optimized arterial blood supply to hheel 4. Venous ulceration 5. CVI/lymphedema 6. HFrEF 7. Permanent AF on anticoagulation 8. Post prior left BKA 9. Morbid obesity 10. AKIprerenal/ATN/VANDANA No apparent access site complications from angiogram on Thursday. Receiving IV fluids for CHATO, seen by nephrology In regards to venous ulcers tentatively scheduled for right GSV remnant/right SSV Clarivein tomorrow morning. Procedure does not require contrast but if renal function worsening can defer procedure to later in the week. Post procedure will need compression of right calf and ongoing DVT prophylaxis. Admission and Anticipated Discharge Date Admission Date: February 09, 2024 Subjective Feeling fine this afternoon. Reports mild right leg pain. States feels somewhat depressed about still being in the hospital. Telemetry reviewedatrial fibrillation, brief episode of nonsustained VT, 11 beats Review of Systems Review of Systems: All systems reviewed & are unremarkable except as noted in HPI & below Physical Exam Physical Exam: General: Comfortable, no acute distress Eyes: Sclerae anicteric Lungs: Clear to auscultation bilaterally Cardiac: Irregular irregular Abdomen: Soft, nontender Neuro: Nonfocal Psych: Alert orient x3, normal affect and mood Extremities/Vascular: -- Right radial artery access site with no ecchymosis, hematoma. Distal pulse and sensation intact. -- Anterior mcknight wound dressed, heel wound dressed -- 1+ lower extremity edema to mid mcknight with chronic venous stasis changes, erythema/stasis dermatitis Results & Data Vital Signs (Past 12 Hours) Vital Signs Temp Pulse Pulse Resp BP Pulse Ox O2 Del Method 02/15/24 11:38 98.1 F 65 20 133/73 94 Room Air 02/15/24 09:09 Room Air 02/15/24 07:56 97.3 F L 71 20 101/60 94 Room Air 02/15/24 07:38 74 02/15/24 03:02 98.6 F 69 18 116/72 93 Room Air PG Care Time/CCT Total # of Minutes Spent Total Time Spent with Patient: Total time spent is greater than 50% in coordination of care (as documented) at patient's floor/unit and/or counseling patient: Coding Level of Care Code 49284 SUB INP/OBS CARE MIN Diagnoses 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 E11.628; L08.9
--- NOTE | 2024-02-15 16:58 | Nephrology Progress Note ---
Date of Service February 15, 2024 Assessment & Plan (1) Acute kidney injury: Plan: rapidly worsening now class 3 nonoliguric CHATO w/ baseline creatinine of 1.3 (but labile) in the setting of aggressive obligate diuresis, IV contrast for angiography, IV abtx for RLE infection >> creat up to 5.1 today. Likeliest ischemic ATN; not responding to IV fluids. No indication currently for urgent dialysis. chemistries acceptable. volume status ok today -strict I/O; continue daily weight -will stop IVF at this point -UACM ordered> kyle lf/u -continue to hold diuretics and to avoid further IV contrast -daily bmp Admission and Anticipated Discharge Date Admission Date: February 09, 2024 Subjective no interval events clinically. remains on RA, 1.5L UOP; no uncontrolled pain though does note some mild RUQ and epigastric discomfort/urps. seen on am rounds Review of Systems 2 Review of Systems: All systems reviewed & are unremarkable except as noted in Subjective Physical Exam 2 Constitutional: well developed, well nourished, + morbidly obese and cooperative; no acute distress ENMT: Mouth: + dry oral mucous membranes Respiratory: normal respiratory effort Auscultation: + diminished lung sounds and + crackles (bibasilar) Cardiovascular: Rate/Rhythm: + irregularly irregular Extremities: no edema Gastrointestinal (Abdomen): Percussion/Palpation: + abdomen tender (to moderate palp RUQ/epig) and abdomen soft Musculoskeletal: Extremities: strength 5/5 throughout Skin: no rashes, warm and dry (L BKA; RLE dressing ) Psychiatric: Orientation: alert and oriented x 3 Insight: + limited insight Results & Data Vital Signs (Past 12 Hours) Vital Signs Temp Pulse Pulse Resp BP Pulse Ox O2 Del Method 02/15/24 15:55 37.1 C 93 H 20 132/66 97 Room Air 02/15/24 11:38 36.7 C 65 20 133/73 94 Room Air 02/15/24 09:09 Room Air 02/15/24 07:56 36.3 C L 71 20 101/60 94 Room Air 02/15/24 07:38 74 Laboratory Results 02/13/24 05:32 02/15/24 08:15
[2024-02-15] MEDS: SODIUM TETRADECYL SULFATE 30 MG/ML IV ONE (17:06)
[2024-02-15] MEDS: MEROPENEM 500 MG in SYRINGE 0 ML IV SCH (18:59)
[2024-02-15] MEDS: bisacodyL 10 MG SUPP PR PRN (23:41)
[2024-02-16 07:10] LABS: INR 1.3 (0.9-1.1); Prothrombin Time 13.4 Seconds (9.0-12.0)
[2024-02-16 07:14] LABS: BUN Creatinine Ratio 17.5 (10-20); Calcium 8.8 mg/dl (8.6-10.3); Creatinine Clr Calc Pharmacy 24.6 ml/min; Potassium 4.5 mmol/L (3.5-5.1)
[2024-02-16] MEDS ORDERED: LANTUS PER UNIT CHARGE SC SCH (09:00)
[2024-02-16] MEDS: LANTUS PER UNIT CHARGE SC ONE (10:14)
[2024-02-16] MEDS: LIDOCAINE 1% LOCAL 20 ML VIAL ONE (10:26)
--- NOTE | 2024-02-16 10:38 | Endovascular Procedure Note ---
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 Indications Chronic venous insufficiency, lower extremity swelling, venous ulcers Description of Procedure MECHANOCHEMICAL (CLARIVEIN) right remnant GSV, right SSV ENDOVENOUS ABLATION Preoperative diagnosis: Chronic venous insufficiency Assistants:Shimon Estimated blood loss: < 10 ml Findings: Consistent with preoperative diagnosis Anesthesia: Local Procedure: - Patient prepped in standard fashion - Local anesthesia with 1% lidocaine - Distal remnant GSV accessed retrograde just below the knee under ultrasound guidance with placement of 5Fr sheath - Under ultrasound guidance 65 cm catheter placed down GSV to just above ankle - 25 cm vein segment treated with Clarivein catheter at 3500 rpm - A total of 2 ml 1.5% STS injected - Catheter and sheath removed - Distal right SSV accessed antegrade above the ankle under ultrasound guidance with placement of 5Fr sheath - Under ultrasound guidance 65 cm catheter navigated to mid calf - 20 cm vein segment treated with Clarivein catheter at 3500 rpm - Additional 1.5 ml 1.5% STS injected - Catheter and sheath removed - Dressing and NEEL bandage applied - Patient tolerated procedure well without complication Summary: 1. Successful right remnant GSV Clarivein endovenous ablation. 2. Successful right SSV Clarivein endovenous ablation Recommendations: Follow-up ultrasound in 2 days to confirm no DVT Keep NEEL bandage in place for 48 hrs. Resume compression stockings post bandage removal. I attest to the content of the Intraoperative Record and any orders documented therein. Any exceptions are noted below. Vascular Charges Additional Services Procedure 1: Additional Services Charges: 01433 Ultrasound guidance - vascular access Procedure 2: Additional Services Charges: 19932 Endovenous ablation + imag guid, percutaneous, RF, 1st vein Procedure 3: Additional Services Charges: 00104 Second vein tx in a single extrem, via separate access site
--- NOTE | 2024-02-16 10:42 | Vascular Medicine ProgressNote ---
Date of Service February 16, 2024 Assessment & Plan (1) 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: Plan: 2. Osteomyelitis 3. PADno significant disease on angiogram, optimized arterial blood supply to hheel 4. Venous ulceration 5. CVI/lymphedemapost right GSV remnant, right SSV Clarivein 6. HFrEF 7. Permanent AF on anticoagulation 8. Post prior left BKA 9. Morbid obesity 10. AKIprerenal/ATN/VANDANA Patient underwent successful endovenous ablation of right remnant GSV and right SSV today Maintain compression with Hilario bandage for next 2 days Continue DVT prophylaxis Repeat ultrasound in 2 days to rule out DVT Long-term will need compression stocking Admission and Anticipated Discharge Date Admission Date: February 09, 2024 Subjective No issues overnight. Denies significant pain this morning. No other new concerns. Wound VAC placed yesterday evening Creatinine stable Review of Systems Review of Systems: All systems reviewed & are unremarkable except as noted in HPI & below Physical Exam Physical Exam: General: Comfortable, no acute distress Eyes: Sclerae anicteric Lungs: Clear to auscultation bilaterally Cardiac: Irregular irregular Abdomen: Soft, nontender Neuro: Nonfocal Psych: Alert orient x3, normal affect and mood Extremities/Vascular: -- Right radial artery access site with no ecchymosis, hematoma. Distal pulse and sensation intact. -- Anterior mcknight wound dressed, heel wound with wound VAC in place -- 1+ lower extremity edema to mid mcknight with chronic venous stasis changes, erythema/stasis dermatitis Results & Data Vital Signs (Past 12 Hours) Vital Signs Temp Pulse Pulse Resp BP BP Pulse Ox 02/16/24 07:50 98.4 F 78 18 114/65 96 02/16/24 07:25 77 02/16/24 02:50 98.2 F 69 16 99/65 L 96 02/15/24 23:05 98.6 F 87 18 119/84 96 O2 Del Method 02/16/24 07:50 Room Air 02/16/24 07:25 02/16/24 02:50 Room Air 02/15/24 23:05 Room Air PG Care Time/CCT Total # of Minutes Spent Total Time Spent with Patient: Total time spent is greater than 50% in coordination of care (as documented) at patient's floor/unit and/or counseling patient: Coding Level of Care Code 53048 SUB INP/OBS CARE MIN Diagnoses 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 E11.628; L08.9
--- NOTE | 2024-02-16 10:58 | Pharmacy Report ---
Pharmacy Glycemic Short Note 2 - Date of Service February 16, 2024 - Glycemic Short BSG Results (Last 24 hours): 02/15/24 02/15/24 02/15/24 11:58 17:47 20:08 Glucose POC Glucose 259 H 100 H 97 02/16/24 02/16/24 06:24 09:27 Glucose 130 H POC Glucose 152 H OUTPATIENT ANTIDIABETIC REGIMEN: * Lantus 40 units SC BID * Novolog 10 units SC AC * Erastouvia * HbA1c 7.5% on 02/09/24 ASSESSMENT: 02/15 * Patient received 132 total units of insulin yesterday. * 60 units glargine * 72 units aspart * Fasting BSG was 130 today, much improved from yesterday. Pt received 30 units of glargine this AM. SCr still high, so will loosen correction factor. 02/14 * Patient received 114 total units of insulin yesterday. 55 were basal and 59 were bolus. * Fasting BSG was 266 today--lantus scale 25-35 units was ordered and patient got 35 units + 21 units of basal insulin. * SCr continuing to increase (5.07 today), so will continue to be cautious with basal insulin dosing. * BSG at lunch was still 259 so the carb ratio was tightened. 02/13: * Patient received total of 104 units of insulin yesterday, of which 60 units were basal insulin * Fasting BSG 179 mg/dL - patient's Scr trending up quickly, may scale back slightly on basal insulin this morning due to potential accumulation with ongoing CHATO * No change to CF/CR 02/11: * Patient NPO as of midnight again for angiogram today and thus Basal insulin held. Although NPO some carbs were covered by RN due to juice consumed with morning meds. * BSGs yesterday were [phone] mg/dL. Fasting BSG this morning was 165 mg/dL. * Patient has not yet returned from his procedure. As such will plan to administer a one time basal dose when patient back on unit and resume BID dosing tomorrow morning. 02/10 * Patient NPO as of midnight last night for possible partial calcanectomy today. Also plan for possible angiogram tomorrow. * AM fasting BSG elevated, but delayed AM dose of Lantus 2nd NPO. AM dose to be given at lunch. Hesitant to increase Lantus today 2nd possible NPO tomorrow AM and low BSG of 80 mg/dL on admission when patient was receiving more basal. Will therefore not adjust Lantus for now. * BSG below goal range at dinner yesterday. Patient ate "100%" of lunch, but unclear how many CHO were consumed. 18 units admin at lunch, which would be an appropriate dose if the patient ate ~72g CHO. CHO consumed also not documented at breakfast, although 19 units of Novolog were administered then. Will re-assess CHO ratio after patient ordered a diet again. * BSG at lunchtime today elevated to 202 mg/dL - this was obtained post-op and patient also did not get correctional insulin this AM preop. Therefore will not adjust Novolog 02/08 * 58 yo M w T2DM known to our glycemic service from lengthy admission in Apr-May 2023 admitted 02/07 w diabetic foot infection and suspected osteomyelitis. * Outpatient regimen is basal heavy. Prior inpatient regimen reviewed - anticipated inpatient daily dose ~50-60 units/day. Will split BID to be c/w outpatient schedule * AM fasting BSG low at 80 units. Unclear if this is due to correctional insulin overnight or higher outpatient Lantus dose. Will loosen correction factor and reduce Lantus this AM. * Will tighten CHO ratio, although this will still be slightly looser than previous admit. Minimal PO intake with breakfast therefore not able to assess impact of this change. PLAN FOR INPATIENT GLYCEMIC CONTROL: * Hold outpatient oral diabetes medications * Basal insulin * Lantus 30 BID * Bolus insulin * NovoLog per scale ACHS or Q6hrs while NPO * Goal Range: Low 110 mg/dL - High 140 mg/dL * Correction Factor: 25 mg/dL/unit * Nutritional / Prandial insulin per carb ratio of 1 unit per 3 grams CHO consumed
--- NOTE | 2024-02-16 12:38 | Nephrology Progress Note ---
Date of Service February 16, 2024 Assessment & Plan (1) Acute kidney injury: Plan: rapidly worsening now plateau'd Stage 3 nonoliguric CHATO w/ baseline creatinine of 1.3 (but labile) in the setting of aggressive obligate diuresis, IV contrast for angiography, IV abtx for R foot osteomyelitis >> creat plateau'd at 5 today. Likeliest ischemic ATN; not responding to IV fluids. No indication currently for urgent dialysis. chemistries remain acceptable. volume status ok today. renal u/s w/ 14 cm BL kidneys, no lesions or obstruction. repeat UA most c/w ongoing tubular dysfunction; no infection. 1.5L UOP yesterda which is adequate. hgb steady at 13.2; no indication to intervene on anemia -strict I/O; continue daily weight -no IVF indicated -care is supportive at this time -continue to hold diuretics unless respiratory distress and to avoid further IV contrast -daily bmp reasonable -no indication currently for dialysis diet -continue abtx as per ID recs>> meropenem, daptomycin Above plan of care for today regarding medications, lab timing, diet reviwed w/ Dr Allen; we are in agreement. Admission and Anticipated Discharge Date Admission Date: February 09, 2024 Subjective s/p endovenous ablation of right remnant GSV and right SSV today; pain controlled, RUQ pain resolved; trouble mobilizing phlegm; no sob, no n, no confusion, no edema Review of Systems 2 Review of Systems: All systems reviewed & are unremarkable except as noted in Subjective Physical Exam 2 Constitutional: well developed, well nourished, + morbidly obese and cooperative; no acute distress ENMT: Mouth: + dry oral mucous membranes Respiratory: normal respiratory effort Auscultation: + diminished lung sounds Cardiovascular: Rate/Rhythm: + irregularly irregular Extremities: no edema Gastrointestinal (Abdomen): Percussion/Palpation: abdomen soft; abdomen nontender Musculoskeletal: Extremities: strength 5/5 throughout Skin: no rashes, warm and dry (L BKA; RLE dressing ) Psychiatric: Orientation: oriented x 3 (slight psychomotor slowing as yesterday) Insight: + limited insight Results & Data Vital Signs (Past 12 Hours) Vital Signs Temp Pulse Pulse Resp BP BP Pulse Ox 02/16/24 12:25 36.7 C 74 18 108/65 94 02/16/24 07:50 36.9 C 78 18 114/65 96 02/16/24 07:25 77 02/16/24 02:50 36.8 C 69 16 99/65 L 96 O2 Del Method 02/16/24 12:25 Room Air 02/16/24 07:50 Room Air 02/16/24 07:25 02/16/24 02:50 Room Air Laboratory Results 02/13/24 05:32 02/16/24 06:24
[2024-02-16] MEDS: DAPTOmycin 675 MG in SYRINGE 0 ML IV SCH (14:38)
--- NOTE | 2024-02-16 15:59 | Hospitalist Progress Note ---
Date of Service February 16, 2024 Assessment & Plan (1) Leg wound, right: Plan: 58-year-old male with past medical history significant for type 2 diabetes, diabetic polyneuropathy, diabetic retinopathy, testicular hypofunction, hyperlipidemia, hypothyroidism, obstructive sleep apnea, asthma in remission, chronic systolic and diastolic CHF, history of CAD, history of pulmonary hypertension, history of ventricular tachycardia, status post AICD, history of atrial fibrillation, history of chronic cor pulmonale, peripheral artery disease, venous stasis ulcers, hypertension, morbid obesity, vitamin D deficiency, chronic ulcer of the right lower leg, anemia, status post left BKA, depression, statin intolerance, currently residing at [facility] comes for possible PICC placement and IV antibiotics for left right lower leg wound. Patient is following with the wound care. Wound VAC placed on right foot about couple of weeks ago per patient. Few days ago last Thursday biopsy of the right foot was done. Patient does not know the results of the biopsy. Seems detention did not had transportation and was not started on antibiotics. Patient says he called EMS and came here. We do not have records of the wound care currently. Denies any fever. Has pain in the right leg. Ambulates with a cane. Somewhat constipated. Denies any blood in the stools. Micturating okay. Denies abdominal pain. No nausea. No chest pain. No shortness of breath. No headache no dizziness. No blurred vision. No sore throat or cough. Hemodynamics are okay.Ambulates with cane.States last several days not taking Coumadin in anticipation of PICC line placement. Right leg wound/ulceration /cellulitis PVD/venous stasis/lymphedema Right Calcaneal osteomyelitis--POA S/p wound VAC in right foot S/p biopsy of right foot suggestive of early Osteo per His Clinical Tech Wound Cultures at [facility] grew E.Coli, Enterococcus faecalis, MRSA (was on vancomycin, cefepime) Debrided at [facility] podiatry clinic, wound vac placed --Venous Doppler:Highly limited study with no evaluation of the distal popliteal vein or calf veins due to body habitus. No obvious deep venous thrombus is seen. Soft tissue edema is noted. --RLE Arterial Doppler:The distal superficial femoral artery and the distal popliteal artery were not visualized and patency is not confirm. The proximal posterior tibial and peroneal arteries are patent. The mid to distal portions of the vessels are not identified and patency could not be assessed. The anterior tibial artery and the dorsalis pedis artery are patent. --Foot CT:Findings compatible with osteomyelitis about a large heel ulcer. No drainable abscess is seen. --S/P right foot calcanectomy --S/P right lower extremity angiogram:no significant arterial disease in the right leg from iliacs through tibial arteries. Pedal vessels patent with direct inline flow to the heel. No targets for revascularization. --Wound culture 02/10: Growing Pseudomonas, Acaligenes fecalis, Morganella -- Given CHATO, vancomycin changed to Daptomycin -- IV Zosyn changed to meropenem Day #4 -- Appreciate podiatry, vascular input --Warfarin on hold Pain control S/P successful endovenous ablation of right remnant GSV and right SSV today by Dr. Adams Monitor volume status closely Patient refuses to be on diabetic diet/fluid restriction despite explaining the risks and complications Appreciate ID input: Needs 6-week course of IV antibiotics. Needs PICC line prior to discharge Hold diuresis due to CHATO Daptomycin, meropenem renally adjusted Continue wound VAC Needs follow-up with podiatry on discharge Acute on Chronic HFrEF H/O VT s/p AICD LVEF 35 to 39%, 05/2022. Strict I&O. daily weights Continue metoprolol Entresto held due to low blood pressure Hold p.o. torsemide Monitor renal function, electrolytes Replete electrolytes as needed Hold IV Bumex due to CHATO CHATO on CKD stage III Baseline creatinine 1.2-1.3 --Renal USD:Unremarkable examination and in particular no evidence of hydronephrosis. Worsening renal function likely due to contrast use Cr 4.9 today Avoid nephrotoxic agents as able Diuretics held, renally adjust medications as needed Appreciate nephrology input Monitor urine output/renal function Received IV fluids with no significant improvement Will hold any further IV fluids for now Constipation --KUB:Moderate colonic fecal retention with nonobstructive bowel gas pattern. Continue bowel regimen Minimize narcotic pain medications as able Resolved Hypokalemia Secondary to diuretics Replace and monitor Hyponatremia Sodium 132>133>135 Monitor sodium levels Stable Total bilirubin 1.6 Seems chronic elevation Chronic cor pulmonale Ischemic cardiomyopathy Chronic venous stasis H/O VT S/P ablation S/P AICD Peripheral vascular disease Continue aspirin Hold statin while on Dapto DM II HbA1c 7.5 Does not follow dietary restrictions as advised Continue insulin while hospitalized Hold Januvia Monitor blood sugars Obstructive sleep apnea BiPAP nightly Permanent atrial fibrillation Continue metoprolol Resume Coumadin likely tomorrow if no bleeding issues Monitor Hypertension Continue current medications Monitor BP GERD Continue PPI Hypothyroidism Continue levothyroxine Diabetic polyneuropathy On Lyrica DVT Px: Heparin SQ for now Restart Coumadin as able CODE STATUS Full code Admission and Anticipated Discharge Date Admission Date: February 09, 2024 Subjective Patient is seen and examined at bedside No new complaints Leg pain is well-controlled Abdominal discomfort resolved with bowel movement Denies any chest pain, dyspnea, nausea, vomiting Discussed with nephrology today Review of Systems Review of Systems: All systems reviewed & are unremarkable except as noted in Subjective Physical Exam Physical Exam: Physical Exam: Vitals signs as noted above General Appearance:Morbidly Obese, no apparent distress Head: normocephalic, Atraumatic Eyes: normal inspection, EOMI Neck: supple, Trachea midline Respiratory/Chest: Normal breath sounds, CTA, No accessory muscle use Cardiovascular: Irregularly irregular, No murmur Abdomen/GI:Soft, Non tender, Bowel sounds present Extremities/Musculoskeletal:normal inspection, LE edema, Erythema, Left BKA, RLE surgical site in dressing Neurologic/Psych:AAOX3, grossly no focal neurological deficits Skin: normal color, warm Results & Data Results & Data Vital Signs (Past 12 Hours) Vital Signs Temp Pulse Pulse Resp BP Pulse Ox O2 Del Method 02/16/24 14:38 76 02/16/24 12:31 Room Air 02/16/24 12:25 36.7 C 74 18 108/65 94 Room Air 02/16/24 07:50 36.9 C 78 18 114/65 96 Room Air 02/16/24 07:25 77 Laboratory Results [facility] 02/16/24 06:24 Sodium 135 L Potassium 4.5 Chloride 96 L Carbon Dioxide 28 BUN 87 H Creatinine 4.98 H* Glucose 130 H Calcium 8.8 (1) Leg wound, right Encounter type: initial encounter Qualified Code(s): S81.801A - Unspecified open wound, right lower leg, initial encounter
[2024-02-16] MEDS: LANTUS PER UNIT CHARGE SC SCH (21:36)
--- NOTE | 2024-02-16 21:46 | Podiatry Progress Note ---
Date of Service February 16, 2024 Assessment & Plan (1) Wound, open, foot with complication: (2) Leg wound, right: (3) Cellulitis of right leg: (4) PVD (peripheral vascular disease): (5) 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: (6) H/O osteomyelitis: (7) Osteomyelitis of foot, right, acute: Plan - Pt examined and evaluated - Pathology confirms presence of osteomyelitis, retained, to the heel. - Will require continued wound vac to improve quality of the wound and IV antibiotics for 6-8 weeks or so, depending on ID input - Once IV antibiotic plan is confirmed, can likely be d/c to home. Would do better in inpatient rehab, but, to me, has refused this. - Will follow. Will see outpatient for surgical followup Admission and Anticipated Discharge Date Admission Date: February 09, 2024 Subjective Pt seen at bedside. No new concerns. Seen just prior to ID virtual consult. Doing well with wound vac intact. Review of Systems Constitutional: + fever, + chills and + weakness; no fat igue Eyes: no problem reported Ear, Nose, Mouth, Throat: no problem reported Respiratory: no problem reported Cardiovascular: + edema; no problem reported Gastrointestinal: no nausea, no vomiting and no problem reported Musculoskeletal: + deformity, + limited range of motion a nd + muscle weakness Integumentary: + non-healing lesions, + changing lesion s, + skin ulcer, + wounds and + erythema Neurologic: + loss of sensation, + numbness and + pa resthesia; no generalized weakness Psychiatric: no problem reported Physical Exam Physical Exam: RLE focused exam: Wound vac intact to right plantar heel. No significant drainage noted to cannister. No drainage to overlying dressing. Seal intact. Constitutional: WD/WN, vitals as above + ill appearing and + morbidly obese; no acute distress Eyes: PERRL, conjunctivae normal, anicteric sclerae ENMT: external ear and nose normal, oropharynx normal Neck: trachea midline, no thyromegaly normal visual inspection Respiratory: normal respiratory effort; no respiratory distress Cardiovascular: Rate/Rhythm: regular rate and regular rhythm Chest (Breasts): Chest: normal inspection of chest Gastrointestinal (Abdomen): Inspection/Auscultation: abdomen normal to inspection Percussion/Palpation: + abdomen tender and abdomen soft Musculoskeletal: no cyanosis or clubbing, extremities motor strength 5/5 Head/Neck/Chest: normocephalic and head atraumatic Extremities: + amputation noted (Left BKA) Skin: + ulcer, + skin tightening, + wound, + s kin atrophy and + erythema Neurologic: awake; + abnormal touch/pain/proprioception, + abnormal sensation to monofilament and no focal motor deficits Psychiatric: A+Ox3, euthymic affect Results & Data Results & Data Vital Signs (Past 12 Hours) Vital Signs Temp Pulse Pulse Resp BP BP Pulse Ox 02/16/24 20:08 36.8 C 76 20 134/75 96 02/16/24 15:56 36.6 C 76 16 125/75 96 02/16/24 14:38 76 02/16/24 12:31 02/16/24 12:25 36.7 C 74 18 108/65 94 O2 Del Method 02/16/24 20:08 Room Air 02/16/24 15:56 Room Air 02/16/24 14:38 02/16/24 12:31 Room Air 02/16/24 12:25 Room Air (1) Wound, open, foot with complication Encounter type: initial encounter Laterality: right Qualified Code(s): S91.301A - Unspecified open wound, right foot, initial encounter (2) Leg wound, right Encounter type: initial encounter Qualified Code(s): S81.801A - Unspecified open wound, right lower leg, initial encounter
[2024-02-17 06:10] LABS: Hematocrit (blood only) 38.9 % (42.0-52.0); Hemoglobin 12.8 g/dl (14.0-18.0); Mean Corpuscular Hgb Conc 32.9 g/dL (32.0-36.0); Mean Corpuscular Volume 85.1 fL (80.0-100.0); Mean Platelet Volume 9.1 fL (9.4-12.4); Platelet Count 285 K/uL (130-400); RDW Coefficient of Variation 19.1 % (11.5-14.5); RDW Standard Deviation 58.2 fL (36.4-46.3); Red Blood Count 4.57 M/uL (4.70-6.10); White Blood Count 6.44 K/ul (4.8-10.8)
[2024-02-17 06:34] LABS: BUN Creatinine Ratio 26.5 (10-20); Creatinine Clr Calc Pharmacy 44.6 ml/min; Potassium 3.7 mmol/L (3.5-5.1)
[2024-02-17 06:38] LABS: INR 1.2 (0.9-1.1)
--- NOTE | 2024-02-17 07:50 | Nephrology Progress Note ---
Date of Service February 17, 2024 Assessment & Plan (1) Acute kidney injury: Plan: rapidly improving/late phase Stage 3 nonoliguric CHATO w/ baseline creatinine of 1.3 (but labile) in the setting of aggressive obligate diuresis, IV contrast for angiography, IV abtx for R foot osteomyelitis, OM itself >> creat peaked at 5 and now downtrending fast to 2.8 today. Likeliest ischemic ATN; not responding to IV fluids. No indication currently for urgent dialysis. chemistries remain acceptable. volume status ok today though some overload starting to emerge. renal u/s w/ 14 cm BL kidneys, no lesions or obstruction. repeat UA most c/w ongoing tubular dysfunction; no infection. 1.5L UOP yesterday again which is adequate and may picker feeder as recovery progresses. hgb steady at 12.8; no indication to intervene on anemia -continue strict I/O; continue daily weight -no IVF indicated -care is supportive at this time -continue to hold diuretics unless respiratory distress -avoid further IV contrast for CT -daily bmp reasonable -no indication currently for dialysis diet -continue abtx as per ID recs>> meropenem, daptomycin -will need nephro f/u after d/c > details to follow Admission and Anticipated Discharge Date Admission Date: February 09, 2024 Subjective no interval events clinically. vascular medicine feels recovery from their standpoint progressing well. no sob, no n/v, taking po; no further abd pain c/o; notes more UOP. Review of Systems 2 Review of Systems: All systems reviewed & are unremarkable except as noted in Subjective Physical Exam 2 Constitutional: well developed (eating lunch), well nourished, + morbidly obese and cooperative; no acute distress ENMT: Mouth: + dry oral mucous membranes Respiratory: normal respiratory effort Auscultation: + diminished lung sounds Cardiovascular: Rate/Rhythm: + irregularly irregular (HS distant) E xtremities: + edema (trace dependent) Musculoskeletal: Extremities: strength 5/5 throughout Skin: no rashes, warm and dry (L BKA; RLE dressing ) Psychiatric: Orientation: alert and oriented x 3 (noticeably less but still slight psychomotor slowing ) Insight: + limited insight Results & Data Vital Signs (Past 12 Hours) Vital Signs Temp Pulse Pulse Resp BP Pulse Ox O2 Del Method 02/17/24 03:33 36.8 C 69 18 156/77 H 95 Room Air 02/17/24 00:23 Room Air 02/17/24 00:17 36.9 C 68 18 154/81 H 95 Room Air 02/16/24 22:00 91 H 02/16/24 20:08 36.8 C 76 20 134/75 96 Room Air Laboratory Results 02/17/24 05:54 02/17/24 05:54
--- NOTE | 2024-02-17 10:34 | Pharmacy Report ---
Pharmacy Glycemic Short Note 2 - Date of Service February 17, 2024 - Glycemic Short BSG Results (Last 24 hours): 02/16/24 02/16/24 02/16/24 12:17 17:06 20:42 Glucose POC Glucose 175 H 146 H 566 H* 02/16/24 02/17/24 02/17/24 20:44 05:54 08:14 Glucose 133 H POC Glucose 157 H 127 H OUTPATIENT ANTIDIABETIC REGIMEN: * Lantus 40 units SC BID * Novolog 10 units SC AC * Claire * HbA1c 7.5% on 02/09/24 ASSESSMENT: 02/16 * Ben received 100 units of insulin yesterday (60 were basal) * BSG acceptable yesterday, continue current basal insulin and Novolog parameters. He continues on meropenem and daptomycin. Renal function improving today. 02/15 * Patient received 132 total units of insulin yesterday. * 60 units glargine * 72 units aspart * Fasting BSG was 130 today, much improved from yesterday. Pt received 30 units of glargine this AM. SCr still high, so will loosen correction factor. 02/14 * Patient received 114 total units of insulin yesterday. 55 were basal and 59 were bolus. * Fasting BSG was 266 today--lantus scale 25-35 units was ordered and patient got 35 units + 21 units of basal insulin. * SCr continuing to increase (5.07 today), so will continue to be cautious with basal insulin dosing. * BSG at lunch was still 259 so the carb ratio was tightened. 02/13: * Patient received total of 104 units of insulin yesterday, of which 60 units were basal insulin * Fasting BSG 179 mg/dL - patient's Scr trending up quickly, may scale back slightly on basal insulin this morning due to potential accumulation with ongoing CHATO * No change to CF/CR 02/11: * Patient NPO as of midnight again for angiogram today and thus Basal insulin held. Although NPO some carbs were covered by RN due to juice consumed with morning meds. * BSGs yesterday were [phone] mg/dL. Fasting BSG this morning was 165 mg/dL. * Patient has not yet returned from his procedure. As such will plan to administer a one time basal dose when patient back on unit and resume BID dosing tomorrow morning. 02/10 * Patient NPO as of midnight last night for possible partial calcanectomy today. Also plan for possible angiogram tomorrow. * AM fasting BSG elevated, but delayed AM dose of Lantus 2nd NPO. AM dose to be given at lunch. Hesitant to increase Lantus today 2nd possible NPO tomorrow AM and low BSG of 80 mg/dL on admission when patient was receiving more basal. Will therefore not adjust Lantus for now. * BSG below goal range at dinner yesterday. Patient ate "100%" of lunch, but unclear how many CHO were consumed. 18 units admin at lunch, which would be an appropriate dose if the patient ate ~72g CHO. CHO consumed also not documented at breakfast, although 19 units of Novolog were administered then. Will re-assess CHO ratio after patient ordered a diet again. * BSG at lunchtime today elevated to 202 mg/dL - this was obtained post-op and patient also did not get correctional insulin this AM preop. Therefore will not adjust Novolog 02/08 * 58 yo M w T2DM known to our glycemic service from lengthy admission in Apr-May 2023 admitted 02/07 w diabetic foot infection and suspected osteomyelitis. * Outpatient regimen is basal heavy. Prior inpatient regimen reviewed - anticipated inpatient daily dose ~50-60 units/day. Will split BID to be c/w outpatient schedule * AM fasting BSG low at 80 units. Unclear if this is due to correctional insulin overnight or higher outpatient Lantus dose. Will loosen correction factor and reduce Lantus this AM. * Will tighten CHO ratio, although this will still be slightly looser than previous admit. Minimal PO intake with breakfast therefore not able to assess impact of this change. PLAN FOR INPATIENT GLYCEMIC CONTROL: * Hold outpatient diabetes medications * Basal insulin * Lantus 30 units SQ BID * Bolus insulin * NovoLog per scale ACHS or Q6hrs while NPO * Goal Range: Low 110 mg/dL - High 140 mg/dL * Correction Factor: 25 mg/dL/unit * Nutritional / Prandial insulin per carb ratio of 1 unit per 3 grams CHO consumed
--- NOTE | 2024-02-17 12:30 | Vascular Medicine ProgressNote ---
Date of Service February 17, 2024 Assessment & Plan (1) 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: Plan: 2. Osteomyelitis 3. PADno significant disease on angiogram, optimized arterial blood supply to hheel 4. Venous ulceration 5. CVI/lymphedemapost right GSV remnant, right SSV Clarivein 6. HFrEF 7. Permanent AF on anticoagulation 8. Post prior left BKA 9. Morbid obesity 10. AKIprerenal/ATN/VANDANA Post successful endovenous ablation of right remnant GSV, right SSV yesterday. Maintain compression with Hilario bandage today. Can transition to compression stocking tomorrow Repeat venous ultrasound tomorrow to rule out DVT. Continue DVT prophylaxis From a vascular standpoint okay with discharge whenever other medical issues stable. Admission and Anticipated Discharge Date Admission Date: February 09, 2024 Subjective Seen today while wound VAC dressing being changed. Bleeding noted. No pat rounding erythema. [place] tissue with white slough at base. Patient with no complaints today. Denies significant right leg pain. No other new concerns. Kidney function improving. Creatinine down to 2.75 today Review of Systems Review of Systems: All systems reviewed & are unremarkable except as noted in HPI & below Physical Exam Physical Exam: General: Comfortable, no acute distress Eyes: Sclerae anicteric Lungs: Clear to auscultation bilaterally Cardiac: Irregular irregular Abdomen: Soft, nontender Neuro: Nonfocal Psych: Alert orient x3, normal affect and mood Extremities/Vascular: -- Right radial artery access site with no ecchymosis, hematoma. Distal pulse and sensation intact. -- Hilario bandage remains over right mcknight/calf -- Large right heel wound without surrounding erythema, deep to bone with pink tissue and surface white slough. No significant drainage. Mild bleeding. Results & Data Vital Signs (Past 12 Hours) Vital Signs Temp Pulse Resp BP BP Pulse Ox O2 Del Method 02/17/24 11:47 97.9 F 62 18 120/79 97 Room Air 02/17/24 07:49 97.7 F 80 16 124/79 94 Room Air 02/17/24 03:33 98.2 F 69 18 156/77 H 95 Room Air PG Care Time/CCT Total # of Minutes Spent Total Time Spent with Patient: Total time spent is greater than 50% in coordination of care (as documented) at patient's floor/unit and/or counseling patient: Coding Level of Care Code 33411 SUB INP/OBS CARE MIN Diagnoses 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 E11.628; L08.9
--- NOTE | 2024-02-17 13:49 | Hospitalist Progress Note ---
Date of Service February 17, 2024 Assessment & Plan (1) Leg wound, right: Plan: 58-year-old male with past medical history significant for type 2 diabetes, diabetic polyneuropathy, diabetic retinopathy, testicular hypofunction, hyperlipidemia, hypothyroidism, obstructive sleep apnea, asthma in remission, chronic systolic and diastolic CHF, history of CAD, history of pulmonary hypertension, history of ventricular tachycardia, status post AICD, history of atrial fibrillation, history of chronic cor pulmonale, peripheral artery disease, venous stasis ulcers, hypertension, Obesity III, vitamin D deficiency, chronic ulcer of the right lower leg, anemia, status post left BKA, depression, statin intolerance, residing at [facility] comes for possible PICC placement and IV antibiotics for left right lower leg wound. Right leg wound/ulceration /cellulitis PVD/venous stasis/lymphedema Right Calcaneal osteomyelitis--POA S/p wound VAC in right foot Debrided at OP podiatry clinic, wound vac placed --Venous Doppler:Highly limited study with no evaluation of the distal popliteal vein or calf veins due to body habitus. No obvious deep venous thrombus is seen. Soft tissue edema is noted. --RLE Arterial Doppler:The distal superficial femoral artery and the distal popliteal artery were not visualized and patency is not confirm. The proximal posterior tibial and peroneal arteries are patent. The mid to distal portions of the vessels are not identified and patency could not be assessed. The anterior tibial artery and the dorsalis pedis artery are patent. --Foot CT:Findings compatible with osteomyelitis about a large heel ulcer. No drainable abscess is seen. --S/P right foot calcanectomy --S/P right lower extremity angiogram:no significant arterial disease in the right leg from iliacs through tibial arteries. Pedal vessels patent with direct inline flow to the heel. No targets for revascularization. --Wound culture 02/10: Growing Pseudomonas, Acaligenes fecalis, Morganella S/P successful endovenous ablation of right remnant GSV and right SSV by Dr. Adams Patient refuses to be on diabetic diet/fluid restriction despite explaining the risks and complications Appreciate ID input: Needs 6-week course of IV antibiotics. Needs PICC line prior to discharge Hold diuresis due to CHATO Continue Daptomycin, meropenem renally adjusted Continue wound VAC Needs follow-up with podiatry on discharge heparin-Coumadin started on 02/17/2024. Acute on Chronic HFrEF H/O VT s/p AICD LVEF 35 to 39%, 05/2022. Strict I&O. daily weights Continue metoprolol Entresto held due to low blood pressure Hold p.o. torsemide Monitor renal function, electrolytes Replete electrolytes as needed Hold IV Bumex due to CHATO CHATO on CKD stage III Baseline creatinine 1.2-1.3 --Renal USD:Unremarkable examination and in particular no evidence of hydronephrosis. Worsening renal function likely due to contrast use Creatinine uptrended to 5 and is downtrending Avoid nephrotoxic agents as able Diuretics held, renally adjust medications as needed Appreciate nephrology input Monitor urine output/renal function Constipation --KUB:Moderate colonic fecal retention with nonobstructive bowel gas pattern. Continue bowel regimen Minimize narcotic pain medications as able Resolved Hypokalemia Secondary to diuretics Replace and monitor Hyponatremia Monitor sodium levels Stable Chronic cor pulmonale Ischemic cardiomyopathy Chronic venous stasis H/O VT S/P ablation S/P AICD Peripheral vascular disease Continue aspirin Hold statin while on Dapto DM II HbA1c 7.5 Does not follow dietary restrictions as advised Continue insulin while hospitalized Hold Januvia Monitor blood sugars Obstructive sleep apnea BiPAP nightly Permanent atrial fibrillation Continue metoprolol heparin-warfarin started on 02/17/2024. Hypertension Continue current medications Monitor BP GERD Continue PPI Hypothyroidism Continue levothyroxine Diabetic polyneuropathy On Lyrica DVT Px: heparin CODE STATUS Full code Time spent evaluating patient, direct bedside care, chart review, placing orders, interpretation of diagnostic studies, discussion with consultants, patient, and family members, as well as other required patient management activities is 50 minutes Please note the above document was generated using voice recognition software. It may contain grammatical, syntax or spelling errors. Any formal questions or concerns about the content, text or information contained within the body of this dictation should be directly addressed to the provider for clarification Admission and Anticipated Discharge Date Admission Date: February 09, 2024 Subjective Patient seen and examined at bedside. Comfortable; not in distress. Denies fever, chills, chest pain, shortness of breath, abdominal pain or urinary symptoms. No significant overnight events Review of Systems Review of Systems: All systems reviewed & are unremarkable except as noted in Subjective Physical Exam Physical Exam: Physical Exam: Vitals signs as noted above General Appearance:Obese, no apparent distress Head: normocephalic, Atraumatic Eyes: normal inspection, EOMI Neck: supple, Trachea midline Respiratory/Chest: Normal breath sounds, CTA, No accessory muscle use Cardiovascular: Irregularly irregular, No murmur Abdomen/GI:Soft, Non tender, Bowel sounds present Extremities/Musculoskeletal:normal inspection, LE edema, Erythema, Left BKA, RLE surgical site in dressing with wound vac in place Neurologic/Psych:AAOX3, grossly no focal neurological deficits Skin: normal color, warm Results & Data Results & Data Vital Signs (Past 12 Hours) Vital Signs Temp Pulse Resp BP BP Pulse Ox O2 Del Method 02/17/24 11:47 36.6 C 62 18 120/79 97 Room Air 02/17/24 07:49 36.5 C 80 16 124/79 94 Room Air 02/17/24 03:33 36.8 C 69 18 156/77 H 95 Room Air (1) Leg wound, right Encounter type: initial encounter Qualified Code(s): S81.801A - Unspecified open wound, right lower leg, initial encounter
[2024-02-17 15:24] LABS: Basophils # (auto) 0.09 K/uL (0.00-0.20); Basophils % (auto) 1.3 %; Eosinophils # (auto) 0.34 K/uL (0.00-0.50); Hematocrit (blood only) 40.7 % (42.0-52.0); Hemoglobin 12.8 g/dl (14.0-18.0); Immature Granulocytes # (auto) 0.07 K/uL (0.01-0.20); Lymphocytes # (auto) 0.93 K/uL (1.20-3.40); Lymphocytes % (auto) 13.6 %; Mean Corpuscular Hemoglobin 27.4 pg (25.0-34.0); Mean Corpuscular Hgb Conc 31.4 g/dL (32.0-36.0); Mean Corpuscular Volume 87.2 fL (80.0-100.0); Mean Platelet Volume 8.9 fL (9.4-12.4); Monocytes # (auto) 0.63 K/uL (0.11-0.59); Monocytes % (auto) 9.2 %; Neutrophils # (auto) 4.78 K/uL (1.40-6.50); Neutrophils % (auto) 69.9 %; Platelet Count 287 K/uL (130-400); RDW Coefficient of Variation 19.6 % (11.5-14.5); RDW Standard Deviation 60.4 fL (36.4-46.3); Red Blood Count 4.67 M/uL (4.70-6.10); White Blood Count 6.84 K/ul (4.8-10.8)
[2024-02-17 15:51] LABS: INR 1.2 (0.9-1.1); Partial Thromboplastin Ratio 1.1; Partial Thromboplastin Time 29 Seconds (21-31); Prothrombin Time 12.7 Seconds (9.0-12.0)
[2024-02-17] MEDS: DAPTOmycin 675 MG in SYRINGE 0 ML IV SCH (16:05)
[2024-02-17] MEDS: WARFARIN SOD 5 MG TAB PO SCH (17:02)
[2024-02-17] MEDS: Heparin IV Adult Wt-Based Standard *NO* INITIAL Bolus Protocol IV SCH (17:11)
[2024-02-17] MEDS: HEPARIN SODIUM/DEXTROSE 25,000 UNITS/500 ML BAG IV SCH (17:11)
[2024-02-17] MEDS: MEROPENEM 500 MG in SYRINGE 0 ML IV SCH (17:11)
[2024-02-18 06:22] LABS: Basophils # (auto) 0.08 K/uL (0.00-0.20); Basophils % (auto) 1.3 %; Eosinophils # (auto) 0.37 K/uL (0.00-0.50); Hematocrit (blood only) 40.9 % (42.0-52.0); Hemoglobin 13.2 g/dl (14.0-18.0); Immature Granulocytes # (auto) 0.04 K/uL (0.01-0.20); Immature Granulocytes % (auto) 0.6 %; Lymphocytes # (auto) 1.11 K/uL (1.20-3.40); Mean Corpuscular Hgb Conc 32.3 g/dL (32.0-36.0); Mean Corpuscular Volume 86.8 fL (80.0-100.0); Mean Platelet Volume 9.3 fL (9.4-12.4); Monocytes # (auto) 0.65 K/uL (0.11-0.59); Monocytes % (auto) 10.6 %; Neutrophils # (auto) 3.91 K/uL (1.40-6.50); Neutrophils % (auto) 63.5 %; Platelet Count 283 K/uL (130-400); RDW Coefficient of Variation 19.4 % (11.5-14.5); RDW Standard Deviation 60.7 fL (36.4-46.3); Red Blood Count 4.71 M/uL (4.70-6.10); White Blood Count 6.16 K/ul (4.8-10.8)
[2024-02-18 06:26] LABS: BUN Creatinine Ratio 29.7 (10-20); Calcium 9.3 mg/dl (8.6-10.3); Creatinine Clr Calc Pharmacy 74.3 ml/min; Potassium 3.9 mmol/L (3.5-5.1)
[2024-02-18 07:25] LABS: ANTI-Xa, UFH(UnfractionatedHep 0.54 IU/ml (0.3-0.7); INR 1.2 (0.9-1.1); Prothrombin Time 13.1 Seconds (9.0-12.0)
--- NOTE | 2024-02-18 07:45 | Nephrology Progress Note ---
Date of Service February 18, 2024 Assessment & Plan (1) Acute kidney injury: Plan: resolving/late phase Stage 3 nonoliguric CHATO w/ baseline creatinine of 1.3 (but labile) in the setting of aggressive obligate diuresis, IV contrast for angiography, IV abtx for R foot osteomyelitis, OM itself >> creat peaked at 5 and now downtrending fast to 1.7 today. Ischemic ATN w/o need for urgent dialysis. chemistries remain acceptable; BUN improving markedly w/ renal function improvement. volume status ok today though some overload starting to emerge. renal u/s w/ 14 cm BL kidneys, no lesions or obstruction. repeat UA most c/w ongoing tubular dysfunction; no infection. 2L UOP yesterday c/w late ATN diuresis. hgb improving w/ better volume status to 13.2; no indication to intervene on anemia -continue strict I/O; continue daily weight -no IVF indicated -care is supportive at this time -continue to hold diuretics unless respiratory distress -avoid further IV contrast for CT -daily bmp reasonable -no indication currently for dialysis diet -continue abtx as per ID recs>> meropenem, daptomycin -will need nephro f/u after d/c > details to follow Will sign off NEPHRO D/C RECS -hospital d/c appt in 2-3 wks after rehab d/c if he goes (currently refusing) else after hospital d/c any physician [place] w/ bmp, uacm, acr, cbc all to be done no more than 72 hrs before appt and ordered by neph nurse -check bmp at hospital d/c appt w/ PCP -suggest resuming torsemide, spironolactone at regular OP doses once he's back to baseline x 48 hrs Care coordinated w/ Dr Mathias regarding f/u labs, resumption of diuretics, f/u appts via [employer]Text; we are in agreement Admission and Anticipated Discharge Date Admission Date: February 09, 2024 Subjective for PICC today. no acute interval events clinically; very eager for d/c home but safety concerns from team (not pt). ddenies sob, n/v, new/worrisome voiding concerns, edema, chest pain/palpitations Review of Systems 2 Review of Systems: All systems reviewed & are unremarkable except as noted in Subjective Physical Exam 2 Constitutional: well developed, well nourished, + morbidly obese and cooperative; no acute distress ENMT: Mouth: + dry oral mucous membranes Respiratory: normal respiratory effort Auscultation: + diminished lung sounds Cardiovascular: Rate/Rhythm: + irregularly irregular (HS distant) E xtremities: no edema Musculoskeletal: Extremities: strength 5/5 throughout Skin: no rashes, warm and dry (L BKA; RLE dressing ) Psychiatric: Orientation: alert and oriented x 3 Insight: + limited insight Results & Data Vital Signs (Past 12 Hours) Vital Signs Temp Pulse Pulse Resp BP Pulse Ox O2 Del Method 02/18/24 05:41 77 02/18/24 03:30 36.8 C 62 18 122/79 96 Room Air 02/18/24 00:18 36.7 C 60 18 120/71 93 Room Air 02/17/24 21:35 Room Air Laboratory Results 02/18/24 05:46 02/18/24 05:46
[2024-02-18] MEDS: INFLUENZA VACC TS2024-25(6m+)/PF (IIV3) 0.5mL Syr IM ONE (07:53)
[2024-02-18] MEDS ORDERED: oxyCODONE HCL IR 5 MG TAB (IMMEDIATE RELEASE) PO PRN (11:04)
--- NOTE | 2024-02-18 12:55 | Hospitalist Progress Note ---
Date of Service February 18, 2024 Assessment & Plan (1) Leg wound, right: Plan: 58-year-old male with past medical history significant for type 2 diabetes, diabetic polyneuropathy, diabetic retinopathy, testicular hypofunction, hyperlipidemia, hypothyroidism, obstructive sleep apnea, asthma in remission, chronic systolic and diastolic CHF, history of CAD, history of pulmonary hypertension, history of ventricular tachycardia, status post AICD, history of atrial fibrillation, history of chronic cor pulmonale, peripheral artery disease, venous stasis ulcers, hypertension, Obesity III, vitamin D deficiency, chronic ulcer of the right lower leg, anemia, status post left BKA, depression, statin intolerance, residing at [facility] comes for possible PICC placement and IV antibiotics for right lower leg wound. Right leg wound/ulceration /cellulitis PVD/venous stasis/lymphedema Right Calcaneal osteomyelitis--POA S/p wound VAC in right foot --Venous Doppler:Highly limited study with no evaluation of the distal popliteal vein or calf veins due to body habitus. No obvious deep venous thrombus is seen. Soft tissue edema is noted. --RLE Arterial Doppler:The distal superficial femoral artery and the distal popliteal artery were not visualized and patency is not confirm. The proximal posterior tibial and peroneal arteries are patent. The mid to distal portions of the vessels are not identified and patency could not be assessed. The anterior tibial artery and the dorsalis pedis artery are patent. --Foot CT:Findings compatible with osteomyelitis about a large heel ulcer. No drainable abscess is seen. --S/P right foot calcanectomy --S/P right lower extremity angiogram:no significant arterial disease in the right leg from iliacs through tibial arteries. Pedal vessels patent with direct inline flow to the heel. No targets for revascularization. --Wound culture 02/10: Growing Pseudomonas, Acaligenes fecalis, Morganella S/P successful endovenous ablation of right remnant GSV and right SSV by Dr. Adams Patient refuses to be on diabetic diet/fluid restriction despite explaining the risks and complications ID recommended 6 weeks of meropenem and Daptomycin. Discussed with pharmacy regarding the dosing; started on 1 g meropenem 3 times daily and daptomycin. PICC line placed on 02/17; case management on board for home health placement. I discussed with patient in great details about importance of regular follow- ups, compliance with medication and diet. I recommended him to go to rehab as he has multiple medical issues that is difficult to manage at home even with home health. He verbalized understanding. He also verbalized that he accepts any adverse complications( severe sepsis, multiorgan failure, ) and would like to go home. Needs follow-up with podiatry on discharge heparin-Coumadin started on 02/17/2024. Acute on Chronic HFrEF H/O VT s/p AICD LVEF 35 to 39%, 05/2022. Strict I&O. daily weights Continue metoprolol Entresto held due to low blood pressure Hold p.o. torsemide Monitor renal function, electrolytes Replete electrolytes as needed CHATO on CKD stage III Baseline creatinine 1.2-1.3 --Renal USD:Unremarkable examination and in particular no evidence of hydronephrosis. Worsening renal function likely due to contrast use Creatinine uptrended to 5 and is downtrending Avoid nephrotoxic agents as able Diuretics held, renally adjust medications as needed Appreciate nephrology input Monitor urine output/renal function Constipation --KUB:Moderate colonic fecal retention with nonobstructive bowel gas pattern. Continue bowel regimen Minimize narcotic pain medications as able Resolved Hypokalemia Secondary to diuretics Replace and monitor Hyponatremia Monitor sodium levels Stable Chronic cor pulmonale Ischemic cardiomyopathy Chronic venous stasis H/O VT S/P ablation S/P AICD Peripheral vascular disease Continue aspirin Hold statin while on Dapto DM II HbA1c 7.5 Does not follow dietary restrictions as advised Continue insulin while hospitalized Hold Januvia Monitor blood sugars Obstructive sleep apnea BiPAP nightly Permanent atrial fibrillation Continue metoprolol heparin-warfarin started on 02/17/2024. Hypertension Continue current medications Monitor BP GERD Continue PPI Hypothyroidism Continue levothyroxine Diabetic polyneuropathy On Lyrica DVT Px: heparin/coumadin CODE STATUS Full code Time spent evaluating patient, direct bedside care, chart review, placing orders, interpretation of diagnostic studies, discussion with consultants, patient, and family members, as well as other required patient management activities is 50 minutes Please note the above document was generated using voice recognition software. It may contain grammatical, syntax or spelling errors. Any formal questions or concerns about the content, text or information contained within the body of this dictation should be directly addressed to the provider for clarification Admission and Anticipated Discharge Date Admission Date: February 09, 2024 Subjective Patient seen and examined at bedside. Comfortable; not in distress. Denies fever, chills, chest pain, shortness of breath, abdominal pain or urinary symptoms. No significant overnight events Review of Systems Review of Systems: All systems reviewed & are unremarkable except as noted in Subjective Physical Exam Physical Exam: Physical Exam: Vitals signs as noted above General Appearance:Obese, no apparent distress Head: normocephalic, Atraumatic Eyes: normal inspection, EOMI Neck: supple, Trachea midline Respiratory/Chest: Normal breath sounds, CTA, No accessory muscle use Cardiovascular: Irregularly irregular, No murmur Abdomen/GI:Soft, Non tender, Bowel sounds present Extremities/Musculoskeletal:normal inspection, LE edema, Erythema, Left BKA, RLE surgical site in dressing with wound vac in place Neurologic/Psych:AAOX3, grossly no focal neurological deficits Skin: normal color, warm Results & Data Results & Data Vital Signs (Past 12 Hours) Vital Signs Temp Pulse Pulse Resp BP BP Pulse Ox 02/18/24 10:41 02/18/24 08:03 36.7 C 83 20 144/74 H 96 02/18/24 05:41 77 02/18/24 03:30 36.8 C 62 18 122/79 96 O2 Del Method 02/18/24 10:41 Room Air 02/18/24 08:03 Room Air 02/18/24 05:41 02/18/24 03:30 Room Air (1) Leg wound, right Encounter type: initial encounter Qualified Code(s): S81.801A - Unspecified open wound, right lower leg, initial encounter
--- NOTE | 2024-02-18 13:13 | XRay Report ---
XR chest 1V portable HISTORY: 58 years-old Male right PICC tip placement status post placement of a right-sided PICC COMPARISON: December 02, 2022 TECHNIQUE: AP view of the chest FINDINGS: Cardiac silhouette is enlarged. Single lead left subclavian pacer/AICD. Mild vascular congestion with interstitial coarsening and probable small pleural effusions. Status post placement of a right-sided PICC with distal tip in the expected location of the inferior SVC. IMPRESSION: 1. Status post placement of a right-sided PICC with distal tip within the expected location of the in ferior SVC. 2. No postprocedure pneumothorax. 3. Cardiomegaly with suggestion of mild pulmonary edema. ACT 112: Negative or not required by law. The above report was generated using voice recognition software. It may contain grammatical, syntax o r spelling errors. Electronically signed by: Carlos Johnson M.D. 02/18/2024 1:12 PM
[2024-02-18] MEDS: MEROPENEM 1,000 MG in SYRINGE 0 ML IV SCH (14:16)
[2024-02-18] MEDS: oxyCODONE HCL IR 5 MG TAB (IMMEDIATE RELEASE) PO PRN (14:17)
[2024-02-19 09:21] LABS: Basophils # (auto) 0.08 K/uL (0.00-0.20); Basophils % (auto) 1.1 %; Eosinophils # (auto) 0.32 K/uL (0.00-0.50); Eosinophils % (auto) 4.4 %; Hemoglobin 13.1 g/dl (14.0-18.0); Immature Granulocytes # (auto) 0.03 K/uL (0.01-0.20); Immature Granulocytes % (auto) 0.4 %; Lymphocytes # (auto) 1.04 K/uL (1.20-3.40); Lymphocytes % (auto) 14.2 %; Mean Corpuscular Hemoglobin 27.9 pg (25.0-34.0); Mean Corpuscular Volume 87.2 fL (80.0-100.0); Mean Platelet Volume 9.1 fL (9.4-12.4); Monocytes # (auto) 0.78 K/uL (0.11-0.59); Monocytes % (auto) 10.6 %; Neutrophils # (auto) 5.08 K/uL (1.40-6.50); Neutrophils % (auto) 69.3 %; Platelet Count 273 K/uL (130-400); RDW Coefficient of Variation 19.4 % (11.5-14.5); RDW Standard Deviation 60.1 fL (36.4-46.3); White Blood Count 7.33 K/ul (4.8-10.8)
[2024-02-19 09:32] LABS: BUN Creatinine Ratio 26.4 (10-20); Calcium 9.5 mg/dl (8.6-10.3); Creatinine Clr Calc Pharmacy 110.8 ml/min; Potassium 3.5 mmol/L (3.5-5.1)
[2024-02-19 09:50] LABS: ANTI-Xa, UFH(UnfractionatedHep 0.39 IU/ml (0.3-0.7); INR 1.4 (0.9-1.1); Prothrombin Time 15.1 Seconds (9.0-12.0)
[2024-02-19] MEDS: oxyCODONE HCL IR 5 MG TAB (IMMEDIATE RELEASE) PO PRN (12:58)
[2024-02-19 13:38] LABS: Basophils # (auto) 0.11 K/uL (0.00-0.20); Basophils % (auto) 1.4 %; Eosinophils # (auto) 0.35 K/uL (0.00-0.50); Eosinophils % (auto) 4.3 %; Hematocrit (blood only) 40.5 % (42.0-52.0); Hemoglobin 12.8 g/dl (14.0-18.0); Immature Granulocytes # (auto) 0.05 K/uL (0.01-0.20); Immature Granulocytes % (auto) 0.6 %; Lymphocytes # (auto) 1.15 K/uL (1.20-3.40); Lymphocytes % (auto) 14.3 %; Mean Corpuscular Hemoglobin 27.9 pg (25.0-34.0); Mean Corpuscular Hgb Conc 31.6 g/dL (32.0-36.0); Mean Corpuscular Volume 88.4 fL (80.0-100.0); Monocytes # (auto) 0.83 K/uL (0.11-0.59); Monocytes % (auto) 10.3 %; Neutrophils # (auto) 5.57 K/uL (1.40-6.50); Neutrophils % (auto) 69.1 %; Platelet Count 279 K/uL (130-400); RDW Coefficient of Variation 19.5 % (11.5-14.5); RDW Standard Deviation 62.8 fL (36.4-46.3); Red Blood Count 4.58 M/uL (4.70-6.10); White Blood Count 8.06 K/ul (4.8-10.8)
--- NOTE | 2024-02-19 14:18 | Hospitalist Progress Note ---
Date of Service February 19, 2024 Assessment & Plan (1) Leg wound, right: Plan: 58-year-old male with past medical history significant for type 2 diabetes, diabetic polyneuropathy, diabetic retinopathy, testicular hypofunction, hyperlipidemia, hypothyroidism, obstructive sleep apnea, asthma in remission, chronic systolic and diastolic CHF, history of CAD, history of pulmonary hypertension, history of ventricular tachycardia, status post AICD, history of atrial fibrillation, history of chronic cor pulmonale, peripheral artery disease, venous stasis ulcers, hypertension, Obesity III, vitamin D deficiency, chronic ulcer of the right lower leg, anemia, status post left BKA, depression, statin intolerance, residing at [facility] comes for possible PICC placement and IV antibiotics for right lower leg wound. Right leg wound/ulceration /cellulitis PVD/venous stasis/lymphedema Right Calcaneal osteomyelitis--POA S/p wound VAC in right foot --Venous Doppler:Highly limited study with no evaluation of the distal popliteal vein or calf veins due to body habitus. No obvious deep venous thrombus is seen. Soft tissue edema is noted. --RLE Arterial Doppler:The distal superficial femoral artery and the distal popliteal artery were not visualized and patency is not confirm. The proximal posterior tibial and peroneal arteries are patent. The mid to distal portions of the vessels are not identified and patency could not be assessed. The anterior tibial artery and the dorsalis pedis artery are patent. --Foot CT:Findings compatible with osteomyelitis about a large heel ulcer. No drainable abscess is seen. --S/P right foot calcanectomy --S/P right lower extremity angiogram:no significant arterial disease in the right leg from iliacs through tibial arteries. Pedal vessels patent with direct inline flow to the heel. No targets for revascularization. --Wound culture 02/10: Growing Pseudomonas, Acaligenes fecalis, Morganella S/P successful endovenous ablation of right remnant GSV and right SSV by Dr. Adams Patient refuses to be on diabetic diet/fluid restriction despite explaining the risks and complications ID recommended 6 weeks of meropenem and Daptomycin. Discussed with pharmacy regarding the dosing; started on 1 g meropenem 3 times daily and daptomycin. PICC line placed on 02/17; case management on board for home health placement. I discussed with patient in great details about importance of regular follow- ups, compliance with medication and diet. I recommended him to go to rehab as he has multiple medical issues that is difficult to manage at home even with home health. He verbalized understanding. He also verbalized that he accepts any adverse complications( severe sepsis, multiorgan failure, ) and would like to go home. Needs follow-up with podiatry on discharge 02/18/2025 Plan was for patient to go home on home health However, patient profusely started bleeding from right lower extremity from one of the open areas. Patient seen immediately at bedside; Bleeding stopped after applying pressure. CBC obtained; hemoglobin is stable around 12.8 Heparin/Coumadin discontinued Discharge canceled. Acute on Chronic HFrEF H/O VT s/p AICD LVEF 35 to 39%, 05/2022. Strict I&O. daily weights Continue metoprolol Entresto held due to low blood pressure Hold p.o. torsemide Monitor renal function, electrolytes Replete electrolytes as needed CHATO on CKD stage III- resolved Baseline creatinine 1.2-1.3 --Renal USD:Unremarkable examination and in particular no evidence of hydronephrosis. Worsening renal function likely due to contrast use Creatinine uptrended to 5 and is downtrending Avoid nephrotoxic agents as able Diuretics held, renally adjust medications as needed Appreciate nephrology input Monitor urine output/renal function Constipation --KUB:Moderate colonic fecal retention with nonobstructive bowel gas pattern. Continue bowel regimen Minimize narcotic pain medications as able Resolved Hypokalemia Secondary to diuretics Replace and monitor Hyponatremia Monitor sodium levels Stable Chronic cor pulmonale Ischemic cardiomyopathy Chronic venous stasis H/O VT S/P ablation S/P AICD Peripheral vascular disease Continue aspirin Hold statin while on Dapto DM II HbA1c 7.5 Does not follow dietary restrictions as advised Continue insulin while hospitalized Hold Januvia Monitor blood sugars Obstructive sleep apnea BiPAP nightly Permanent atrial fibrillation Continue metoprolol heparin on hold due to bleeding from RLE Hypertension Continue current medications Monitor BP GERD Continue PPI Hypothyroidism Continue levothyroxine Diabetic polyneuropathy On Lyrica DVT Px: heparin/coumadin CODE STATUS Full code Time critical time spent evaluating patient, direct bedside care, chart review, placing orders, interpretation of diagnostic studies, discussion with consultants, patient, and family members, as well as other required patient management activities is 35 minutes Please note the above document was generated using voice recognition software. It may contain grammatical, syntax or spelling errors. Any formal questions or concerns about the content, text or information contained within the body of this dictation should be directly addressed to the provider for clarification Admission and Anticipated Discharge Date Admission Date: February 09, 2024 Subjective Notified by nursing that patient was bleeding from right lower extremity. Patient examined immediately at bedside; pressure was being applied by the RN. Area was reviewed; small open area of bleeding with small subcutaneous hematoma. Bleeding had stopped after application of pressure. Heparin was discontinued. Patient was aggressive and shouting at the medical providers. Repeated attempts made to make him calm. Review of Systems Review of Systems: All systems reviewed & are unremarkable except as noted in Subjective Physical Exam Physical Exam: Physical Exam: Vitals signs as noted above General Appearance:Obese, no apparent distress Head: normocephalic, Atraumatic Eyes: normal inspection, EOMI Neck: supple, Trachea midline Respiratory/Chest: Normal breath sounds, CTA, No accessory muscle use Cardiovascular: Irregularly irregular, No murmur Abdomen/GI:Soft, Non tender, Bowel sounds present Extremities/Musculoskeletal:normal inspection, Right lower extremity with small area of opening with some bleeding. Bleeding subsided after application of pressure. Neurologic/Psych:AAOX3, grossly no focal neurological deficits Skin: normal color, warm Results & Data Results & Data Vital Signs (Past 12 Hours) Vital Signs Temp Pulse Pulse Resp BP BP Pulse Ox 02/19/24 09:44 36.7 C 85 16 152/81 H 144/74 H 97 02/19/24 09:27 02/19/24 07:27 75 02/19/24 07:04 36.7 C 85 16 152/81 H 97 02/19/24 03:17 36.4 C L 100 H 20 176/99 H 95 O2 Del Method 02/19/24 09:44 02/19/24 09:27 Room Air 02/19/24 07:27 02/19/24 07:04 Room Air 02/19/24 03:17 Room Air (1) Leg wound, right Encounter type: initial encounter Qualified Code(s): S81.801A - Unspecified open wound, right lower leg, initial encounter
--- NOTE | 2024-02-19 21:46 | Ultrasound Report ---
ULTRASOUND RIGHT LOWER EXTREMITY VENOUS CLINICAL HISTORY: Right leg swelling. COMPARISON STUDY: Right lower extremity venous ultrasound dated 02/09/2024 TECHNIQUE: Real-time, grayscale, and color Doppler sonography of the deep veins of the right lower ex tremity was performed from the inguinal crease to the calf. Compression and augmentation were utilize d. FINDINGS: There is no sonographic evidence of deep venous thrombosis identified in the right lower ex tremity. The common femoral, superficial femoral, and popliteal veins are patent and normally anette sible. The greater saphenous vein and the profunda femoris vein at the junction with the common femor al vein are clear. The visualized calf veins are patent. IMPRESSION: There is no sonographic evidence of deep venous thrombosis identified in the right lower extremity. ACT 112: Negative or not required by law. Electronically signed by: Lukas Trivedi M.D. 02/19/2024 9:44 PM
--- NOTE | 2024-02-19 22:16 | Podiatry Progress Note ---
Date of Service February 18, 2024 Assessment & Plan (1) Wound, open, foot with complication: (2) Leg wound, right: (3) Cellulitis of right leg: (4) PVD (peripheral vascular disease): (5) 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: (6) H/O osteomyelitis: (7) Osteomyelitis of foot, right, acute: Plan - Pt examined and evaluated - Pathology confirms presence of osteomyelitis, retained, to the heel. - Will require continued wound vac to improve quality of the wound and IV antibiotics for 6-8 weeks or so, depending on ID input - Once IV antibiotic plan is confirmed, can likely be d/c to home. Would do better in inpatient rehab, but, to me, has refused this. - Will follow. Will see outpatient for surgical followup Admission and Anticipated Discharge Date Admission Date: February 09, 2024 Subjective Pt seen at bedside. Resting comfortably at lunch. Wound vac intact and well tolerated. No new concerns. Has vascular procedure tomorrow and wound vac home orders being taken care of/authorized. Review of Systems Constitutional: + fever, + chills and + weakness; no fat igue Eyes: no problem reported Ear, Nose, Mouth, Throat: no problem reported Respiratory: no problem reported Cardiovascular: + edema; no problem reported Gastrointestinal: no nausea, no vomiting and no problem reported Musculoskeletal: + deformity, + limited range of motion a nd + muscle weakness Integumentary: + non-healing lesions, + changing lesion s, + skin ulcer, + wounds and + erythema Neurologic: + loss of sensation, + numbness and + pa resthesia; no generalized weakness Psychiatric: no problem reported Physical Exam Physical Exam: RLE focused exam: Wound vac intact to right plantar heel. No significant drainage noted to cannister. No drainage to overlying dressing. Seal intact. Constitutional: WD/WN, vitals as above + ill appearing and + morbidly obes e; no acute distress Eyes: PERRL, conjunctivae normal, anicteric sclerae ENMT: external ear and nose normal, oropharynx normal Neck: trachea midline, no thyromegaly normal visual inspection Respiratory: normal respiratory effort; no respiratory distress Cardiovascular: Rate/Rhythm: regular rate and regular rhythm Chest (Breasts): Chest: normal inspection of chest Gastrointestinal (Abdomen): Inspection/Auscultation: abdomen normal to inspection Percussion/Palpation: + abdomen tender and abdomen soft Musculoskeletal: no cyanosis or clubbing, extremities motor strength 5/5 Head/Neck/Chest: normocephalic and head atraumatic Extremities: + amputation noted (Left BKA) Skin: + ulcer, + skin tightening, + wound, + s kin atrophy and + erythema Neurologic: awake; + abnormal touch/pain/proprioception, + abnormal sensation to monofilament and no focal motor deficits Psychiatric: A+Ox3, euthymic affect Results & Data Results & Data Vital Signs (Past 12 Hours) Vital Signs Temp Pulse Resp BP Pulse Ox O2 Del Method 02/19/24 20:27 36.5 C 86 18 148/88 H 96 Room Air 02/19/24 14:24 36.3 C L 83 16 144/85 H 99 Room Air 02/19/24 12:00 Room Air (1) Wound, open, foot with complication Encounter type: initial encounter Laterality: right Qualified Code(s): S91.301A - Unspecified open wound, right foot, initial encounter (2) Leg wound, right Encounter type: initial encounter Qualified Code(s): S81.801A - Unspecified open wound, right lower leg, initial encounter
--- NOTE | 2024-02-19 23:10 | Vascular Medicine ProgressNote ---
Date of Service February 19, 2024 Assessment & Plan (1) 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: Plan: 2. Osteomyelitis 3. PADno significant disease on angiogram, optimized arterial blood supply to heel 4. Venous ulceration 5. CVI/lymphedemapost right GSV remnant, right SSV Clarivein 6. HFrEF 7. Permanent AF on anticoagulation 8. Post prior left BKA 9. Morbid obesity 10. AKIprerenal/ATN/VANDANA Post successful endovenous ablation of right remnant GSV, right SSV yesterday 3 days ago RLE more swollen after diuretics held with CHATO Oozing from anterior mcknight with small areas of skin breakdown. Oozing/bleeding from increased edema/anticoagulation. -- Reviewed venous duplex - no evidence of DVT post ablation. -- Will need increased diuresis to improved anterior mcknight skin breakdown - Recommend restarting at least home maintenance diuretics -- Will also need increased compression, stockings, wraps etc to mobilize fluid -- consider wound clinic referral -- OK to resume anticoagulation. F/up with vascular medicine in 3-4 weeks with repeat ultrasound Admission and Anticipated Discharge Date Admission Date: February 09, 2024 Subjective No significant pain at RT leg. Earlier today had bleeding/oozing from RT anterior mcknight. Dressing placed. Hb stable. Review of Systems Review of Systems: All systems reviewed & are unremarkable except as noted in HPI & below Physical Exam Physical Exam: General: Comfortable, no acute distress Eyes: Sclerae anicteric Lungs: Clear to auscultation bilaterally Cardiac: Irregular irregular Abdomen: Soft, nontender Neuro: Nonfocal Psych: Alert orient x3, normal affect and mood Extremities/Vascular: -- Ant mcknight with oozing and ecchymosis. 2+ LE edema extending above the kneed -- Wound vac in place distally Results & Data Vital Signs (Past 12 Hours) Vital Signs Temp Pulse Resp BP Pulse Ox O2 Del Method 02/19/24 20:27 97.7 F 86 18 148/88 H 96 Room Air 02/19/24 14:24 97.3 F L 83 16 144/85 H 99 Room Air 02/19/24 12:00 Room Air PG Care Time/CCT Total # of Minutes Spent Total Time Spent with Patient: Total time spent is greater than 50% in coordination of care (as documented) at patient's floor/unit and/or counseling patient: Coding Level of Care Code 43957 SUB INP/OBS CARE MIN Diagnoses 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 E11.628; L08.9
[2024-02-19] MEDS: HYDROmorphone INJ 0.5 MG/0.5 ML SYR IV STA (23:45)
[2024-02-19] MEDS: LORazepam 0.5 MG TAB PO STA (23:46)
[2024-02-20 06:24] LABS: Basophils % (auto) 1.3 %; Eosinophils # (auto) 0.36 K/uL (0.00-0.50); Eosinophils % (auto) 4.6 %; Hematocrit (blood only) 38.5 % (42.0-52.0); Hemoglobin 12.2 g/dl (14.0-18.0); Immature Granulocytes # (auto) 0.03 K/uL (0.01-0.20); Immature Granulocytes % (auto) 0.4 %; Lymphocytes # (auto) 0.81 K/uL (1.20-3.40); Lymphocytes % (auto) 10.3 %; Mean Corpuscular Hgb Conc 31.7 g/dL (32.0-36.0); Mean Corpuscular Volume 88.3 fL (80.0-100.0); Mean Platelet Volume 9.5 fL (9.4-12.4); Monocytes # (auto) 0.76 K/uL (0.11-0.59); Monocytes % (auto) 9.7 %; Neutrophils # (auto) 5.81 K/uL (1.40-6.50); Neutrophils % (auto) 73.7 %; Platelet Count 268 K/uL (130-400); RDW Coefficient of Variation 19.4 % (11.5-14.5); RDW Standard Deviation 62.4 fL (36.4-46.3); Red Blood Count 4.36 M/uL (4.70-6.10); White Blood Count 7.87 K/ul (4.8-10.8)
[2024-02-20 06:44] LABS: BUN Creatinine Ratio 21.5 (10-20); Calcium 9.1 mg/dl (8.6-10.3); Creatinine Clr Calc Pharmacy 113.9 ml/min
[2024-02-20] MEDS: LANTUS PER UNIT CHARGE SC SCH ×2 (08:16→20:42)
[2024-02-20] MEDS: SPIRONOLACTONE 25 MG TAB PO SCH (09:31)
[2024-02-20] MEDS: TORSEMIDE 20 MG TAB PO SCH (09:31)
--- NOTE | 2024-02-20 11:08 | Discharge Summary ---
Date of Service February 20, 2024 Admission HPI Per Admitting Provider 58-year-old male with past medical history significant for type 2 diabetes, diabetic polyneuropathy, diabetic retinopathy, testicular hypofunction, hyperlipidemia, hypothyroidism, obstructive sleep apnea, asthma in remission, chronic systolic and diastolic CHF, history of CAD, history of pulmonary hypertension, history of ventricular tachycardia, status post AICD, history of atrial fibrillation, history of chronic cor pulmonale, peripheral artery disease, venous stasis ulcers, hypertension, morbid obesity, vitamin D deficiency, chronic ulcer of the right lower leg, anemia, status post left BKA, depression, statin intolerance, currently residing at [facility] comes for possible PICC placement and IV antibiotics for left right lower leg wound. Patient is following with the wound care. Wound VAC placed on right foot about couple of weeks ago per patient. Few days ago last Thursday biopsy of the right foot was done. Patient does not know the results of the biopsy. Seems residential did not had transportation and was not started on antibiotics. Patient says he called EMS and came here. We do not have records of the wound care currently. Denies any fever. Has pain in the right leg. Ambulates with a cane. Somewhat constipated. Denies any blood in the stools. Micturating okay. Denies abdominal pain. No nausea. No chest pain. No shortness of breath. No headache no dizziness. No blurred vision. No sore throat or cough. Hemodynamics are okay.Ambulates with cane.States last several days not taking Coumadin in anticipation of PICC line placement. Past medical history. As mentioned above Past surgical history. Left below-knee amputation. Colonoscopy. Left heart catheterization. Right heart catheterization. EGD. Status post AICD. Tonsillectomy. Social history. No smoking. Alcohol rarely. No drug use. Family history. Son has diabetes, hypertension, allergies. Father had lung cancer. Mother had a bone marrow cancer. Sister has diabetes. Stroke. Admission Exam Per Admitting Provider General- adult Head- atraumatic Eyes- PERRL. ENT- oropharynx clear Neck- supple, no JVD. Lungs- clear to auscultation no wheezing or crackles Heart- regular rhythm; no murmur, no gallop. Abdomen- normal bowel sounds, soft, nontender, no distension Extremities- left BKA. Right lower extremity swollen and erythematous. mild drainage seen in mcknight region. right foot wound vac seen Neuro- alert, oriented PERRL, no facial palsy; no dysarthria Principal Diagnosis Right leg wound/ulceration /cellulitis PVD/venous stasis/lymphedema Right Calcaneal osteomyelitis--POA S/p wound VAC in right foot Discharge Exam Physical Exam: Vitals signs as noted above General Appearance:Obese, no apparent distress Head: normocephalic, Atraumatic Eyes: normal inspection, EOMI Neck: supple, Trachea midline Respiratory/Chest: Normal breath sounds, CTA, No accessory muscle use Cardiovascular: Irregularly irregular, No murmur Abdomen/GI:Soft, Non tender, Bowel sounds present Extremities/Musculoskeletal:normal inspection, superficial hematoma present on anterior mcknight;no signs or symptoms of bleeding. Wound VAC in place Neurologic/Psych:AAOX3, grossly no focal neurological deficits Skin: normal color, warm Discharge Data Allergies Allergy/AdvReac Type Severity Reaction Status Date / Time benzonatate AdvReac Intermediate choking, Verified 01/07/24 13:17 gagging Consultations 02/09/24 00:27 ED Decision to Admit Stat 02/09/24 08:00 Consult Podiatry Routine 02/09/24 10:27 Consult Vascular Surgery Routine 02/10/24 13:11 HIM [Consult Health Information Management] Routine 02/13/24 11:26 Consult Infectious Diseases Routine 02/14/24 08:57 Consult Nephrology Routine Procedures Performed Operation Date: 02/16/24 08:00 Actual Procedures p Vein Ablation Unilateral - Nader Adams MD Ordered Studies 02/09/24 09:05 US arterial duplex LE RT Routine US venous doppler LE RT Routine 02/09/24 12:27 CT foot RT wo con Urgent 02/12/24 12:00 EP Lab Images for PACS ONCE 02/12/24 13:19 CL Cath Imgs for PACS use only Routine 02/14/24 08:57 US renal/blad retro comp Routine 02/16/24 08:00 US guide intraoperative Stat 02/19/24 US venous doppler LE RT Routine Hospital Course (1) Leg wound, right: 58-year-old male with past medical history significant for type 2 diabetes, diabetic polyneuropathy, diabetic retinopathy, testicular hypofunction, hyperlipidemia, hypothyroidism, obstructive sleep apnea, asthma in remission, chronic systolic and diastolic CHF, history of CAD, history of pulmonary hypertension, history of ventricular tachycardia, status post AICD, history of atrial fibrillation, history of chronic cor pulmonale, peripheral artery disease, venous stasis ulcers, hypertension, Obesity III, vitamin D deficiency, chronic ulcer of the right lower leg, anemia, status post left BKA, depression, statin intolerance, residing at [facility] comes for possible PICC placement and IV antibiotics for right lower leg wound. Right leg wound/ulceration /cellulitis PVD/venous stasis/lymphedema Right Calcaneal osteomyelitis--POA S/p wound VAC in right foot --Venous Doppler:Highly limited study with no evaluation of the distal popliteal vein or calf veins due to body habitus. No obvious deep venous thrombus is seen. Soft tissue edema is noted. --RLE Arterial Doppler:The distal superficial femoral artery and the distal popliteal artery were not visualized and patency is not confirm. The proximal posterior tibial and peroneal arteries are patent. The mid to distal portions of the vessels are not identified and patency could not be assessed. The anterior tibial artery and the dorsalis pedis artery are patent. --Foot CT:Findings compatible with osteomyelitis about a large heel ulcer. No drainable abscess is seen. --S/P right foot calcanectomy --S/P right lower extremity angiogram:no significant arterial disease in the right leg from iliacs through tibial arteries. Pedal vessels patent with direct inline flow to the heel. No targets for revascularization. --Wound culture 02/10: Growing Pseudomonas, Acaligenes fecalis, Morganella S/P successful endovenous ablation of right remnant GSV and right SSV by Dr. Adams Patient refuses to be on diabetic diet/fluid restriction despite explaining the risks and complications ID recommended 6 weeks of meropenem and Daptomycin. Discussed with pharmacy regarding the dosing; started on 1 g meropenem 3 times daily and daptomycin. PICC line placed on 02/17; case management on board for home health placement. I discussed with patient in details about importance of regular follow-ups, compliance with medication and diet. I recommended him to go to rehab as he has multiple medical issues that is difficult to manage at home even with home health. He verbalized understanding. He also verbalized that he accepts any adverse complications( severe sepsis, multiorgan failure, ) and would like to go home. Needs follow-up with podiatry on discharge 02/18/2025 Plan was for patient to go home on home health However, patient profusely started bleeding from right lower extremity from one of the open areas. Patient seen immediately at bedside; Bleeding stopped after applying pressure. CBC obtained; hemoglobin is stable around 12.8 Heparin/Coumadin discontinued Discharge canceled. 02/20/2024 No signs or symptoms of bleeding noted in the right leg Patient was evaluated by podiatry and vascular surgery on 02/18 later in the evening. Patient discharged home with home health. Acute on Chronic HFrEF H/O VT s/p AICD LVEF 35 to 39%, 05/2022. Strict I&O. daily weights Continue metoprolol Entresto held due to low blood pressure Hold p.o. torsemide Monitor renal function, electrolytes Replete electrolytes as needed CHATO on CKD stage III- resolved Baseline creatinine 1.2-1.3 --Renal USD:Unremarkable examination and in particular no evidence of hydronephrosis. Worsening renal function likely due to contrast use Creatinine uptrended to 5 and is downtrending Avoid nephrotoxic agents as able Diuretics held, renally adjust medications as needed Appreciate nephrology input Monitor urine output/renal function diuretics resumed on 02/20/2024 Constipation --KUB:Moderate colonic fecal retention with nonobstructive bowel gas pattern. Continue bowel regimen Minimize narcotic pain medications as able Resolved Hypokalemia Secondary to diuretics Replace and monitor Hyponatremia Monitor sodium levels Stable Chronic cor pulmonale Ischemic cardiomyopathy Chronic venous stasis H/O VT S/P ablation S/P AICD Peripheral vascular disease Continue aspirin Hold statin while on Dapto DM II HbA1c 7.5 Does not follow dietary restrictions as advised Continue insulin while hospitalized Hold Januvia Monitor blood sugars Obstructive sleep apnea BiPAP nightly Permanent atrial fibrillation Continue metoprolol heparin on hold due to bleeding from RLE Hypertension Continue current medications Monitor BP GERD Continue PPI Hypothyroidism Continue levothyroxine Diabetic polyneuropathy On Lyrica DVT Px: heparin/coumadin CODE STATUS Full code Time time spent evaluating patient, direct bedside care, chart review, placing orders, interpretation of diagnostic studies, discussion with consultants, patient, and family members, as well as other required patient management activities is 50 minutes Please note the above document was generated using voice recognition software. It may contain grammatical, syntax or spelling errors. Any formal questions or concerns about the content, text or information contained within the body of this dictation should be directly addressed to the provider for clarification Total Time Total Time Spent Total Time Spent (In Minutes): 50 Discharge Plan Discharge Items Patient Disposition: Home - Self-Care Reason For Visit: RT LEG INFECTION / OSTEOMYELITIS, HX OF CHF Discharge Diagnosis: Right leg wound/ulceration /cellulitis PVD/venous stasis/lymphedema Right Calcaneal osteomyelitis--POA S/p wound VAC in right foot Activity: Resume your previous activity Non-emergency contact: Primary Care Provider Call non-emergency contact if: you have any medication questions and your symptoms worsen Follow-up/Referrals: Giuliana Hernandez PA-C [Physician Engineering Tech] - 02/24/24 1:00 pm Carolyn Crowe MD, PhD [Physician] - (The Nephrology office will contact you for a follow up appointment and lab work.) Sherry Maya DO [Outside Practitioners] - (Date & Time 02/25/2024 11:20 AM Provider Kwame Parks MD Department [facility] ) Bruno Tyler DPM [Physician] - 02/26/24 9:00 am Alise Heck PA-C [Physician Engineering Tech] - (Date & Time 02/23/2024 2:30 PM Provider Alise Heck PA-C Department Cardiology, [facility] ) Diet: Regular Addtl Attending Provider Instructions: You were admitted to the hospital with osteomyelitis of the foot; you underwent debridement. You are prescribed antiboitics for next 6 weeks. Please follow up with wound care, anticoagulation clinic and your PCP. Pending Studies at Discharge: No Stand-Alone Forms: My [employer], Smoking Cessation Medications and DC Order Prescriptions: Continued acetaminophen [Tylenol] 325 mg Tablet 650 mg PO QID PRN (Reason: Pain) aspirin 81 mg Tablet,Delayed Release (Dr/Ec) 81 mg PO DAILY ergocalciferol (vitamin D2) 50,000 unit Tablet 50,000 unit PO WK Rx Instructions: on thursday levothyroxine 88 mcg Tablet 88 mcg PO DAILY bisacodyl [Dulcolax (bisacodyl)] 10 mg Suppository 10 mg [place] DAILY PRN (Reason: Constipation) hyoscyamine sulfate 0.125 mg Tablet 0.125 mg PO Q4H PRN (Reason: Abdominal Pain) ferrous sulfate 325 mg (65 mg iron) Tablet 325 mg PO BID Januvia 50 mg Tablet 50 mg PO DAILY Lantus Solostar U-100 Insulin 40 units 40 units SC BID metolazone 2.5 mg tablet 2.5 mg PO UD Hold Instructions: Resume on 02/23/24. Rx Instructions: metolazone 2.5mg one tab on thu, thu and thursday potassium chloride 20 mEq tablet,ER particles/crystals 20 meq PO BID insulin aspart U-100 [Novolog U-100 Insulin aspart] 100 unit/mL Solution 10 unit SUBCUT AC metoprolol tartrate 50 mg Tablet 50 mg PO TID omeprazole 20 mg capsule,delayed release(DR/EC) 20 mg PO DAILY multivitamin,[id number]-min Tablet 1 tab PO DAILY pregabalin 50 mg capsule 50 mg PO BID oxycodone 10 mg tablet 20 mg PO Q4H PRN (Reason: Pain, Severe) nystatin 100,000 unit 1 applic EXT UD Rx Instructions: nystatin powder to abdominal fold bid sennosides-docusate sodium [Senna-S] 8.6-50 mg Tablet 2 tab-cap PO HS spironolactone 25 mg tablet 25 mg PO DAILY warfarin 3 mg Tablet 3 mg PO DAILY triamcinolone acetonide 0.1 % Lotion 1 applic TOPICAL TID torsemide 60 mg 60 mg PO DAILY Hold Instructions: Resume on 02/22/24. Held atorvastatin 80 mg tablet 80 mg PO DAILY Hold Instructions: Resume on 03/23/24. Hold till completion of antiboitics Discontinued cefepime 2 gram recon soln 2 g IV BID Discharge Orders: Discharge Order (Routine); Ordered 02/20/24 Ordered By: Michele Kang/Other Patient Handouts: Nutrition for Wound Healing Admission Data Admit Date/Time: 02/09/24 00:21 Attending Provider: Michele Mathias Admit Provider: Fei Pendleton Primary Care Provider: PCP,NO Other Providers: Fei Pendleton; Bruno Tyler; Nader Adams; Kirk Torres; Adolph Canales; Alberto Payne I.; Husam Perkins II; Sherry Prakash; Declan Reynoso; Ricardo Lloyd; Jerald Singh Other Interventions: Discharge Summary Assessment (RN) Last Done: 02/19/24 09:44
[2024-02-20] MEDS: LORazepam 0.5 MG TAB PO STA (12:42)
--- NOTE | 2024-02-20 13:36 | Pharmacy Report ---
Pharmacy Glycemic Short Note 2 - Date of Service February 20, 2024 - Glycemic Short BSG Results (Last 24 hours): 02/19/24 02/19/24 02/20/24 16:33 20:24 05:29 Glucose 328 H* POC Glucose 129 H 109 H 02/20/24 02/20/24 07:36 11:38 Glucose POC Glucose 279 H 213 H OUTPATIENT ANTIDIABETIC REGIMEN: * Lantus 40 units SC BID * Novolog 10 units SC AC * Claire * HbA1c 7.5% on 02/09/24 ASSESSMENT: 02/19: * BSGs [phone]/dL the last 24h, trending up today. Received 99 units of insulin yesterday (60 units basal and 39 units bolus). * Continues on IV antibiotics and tolerating diet- other stressors stable. * Given elevated fasting this AM, increased Lantus to 35 units for AM dose and will continue 30 units HS. Novolog correction parameters tightened slightly. 02/15 * Patient received 132 total units of insulin yesterday. * 60 units glargine * 72 units aspart * Fasting BSG was 130 today, much improved from yesterday. Pt received 30 units of glargine this AM. SCr still high, so will loosen correction factor. 02/14 * Patient received 114 total units of insulin yesterday. 55 were basal and 59 were bolus. * Fasting BSG was 266 today--lantus scale 25-35 units was ordered and patient got 35 units + 21 units of basal insulin. * SCr continuing to increase (5.07 today), so will continue to be cautious with basal insulin dosing. * BSG at lunch was still 259 so the carb ratio was tightened. 02/13: * Patient received total of 104 units of insulin yesterday, of which 60 units were basal insulin * Fasting BSG 179 mg/dL - patient's Scr trending up quickly, may scale back slightly on basal insulin this morning due to potential accumulation with ongoing CHATO * No change to CF/CR 02/11: * Patient NPO as of midnight again for angiogram today and thus Basal insulin held. Although NPO some carbs were covered by RN due to juice consumed with morning meds. * BSGs yesterday were [phone] mg/dL. Fasting BSG this morning was 165 mg/dL. * Patient has not yet returned from his procedure. As such will plan to administer a one time basal dose when patient back on unit and resume BID dosing tomorrow morning. 02/10 * Patient NPO as of midnight last night for possible partial calcanectomy today. Also plan for possible angiogram tomorrow. * AM fasting BSG elevated, but delayed AM dose of Lantus 2nd NPO. AM dose to be given at lunch. Hesitant to increase Lantus today 2nd possible NPO tomorrow AM and low BSG of 80 mg/dL on admission when patient was receiving more basal. Will therefore not adjust Lantus for now. * BSG below goal range at dinner yesterday. Patient ate "100%" of lunch, but unclear how many CHO were consumed. 18 units admin at lunch, which would be an appropriate dose if the patient ate ~72g CHO. CHO consumed also not documented at breakfast, although 19 units of Novolog were administered then. Will re-assess CHO ratio after patient ordered a diet again. * BSG at lunchtime today elevated to 202 mg/dL - this was obtained post-op and patient also did not get correctional insulin this AM preop. Therefore will not adjust Novolog 02/08 * 58 yo M w T2DM known to our glycemic service from lengthy admission in Apr-May 2023 admitted 02/07 w diabetic foot infection and suspected osteomyelitis. * Outpatient regimen is basal heavy. Prior inpatient regimen reviewed - anticipated inpatient daily dose ~50-60 units/day. Will split BID to be c/w outpatient schedule * AM fasting BSG low at 80 units. Unclear if this is due to correctional insulin overnight or higher outpatient Lantus dose. Will loosen correction factor and reduce Lantus this AM. * Will tighten CHO ratio, although this will still be slightly looser than previous admit. Minimal PO intake with breakfast therefore not able to assess impact of this change. PLAN FOR INPATIENT GLYCEMIC CONTROL: * Hold outpatient oral diabetes medications * Basal insulin * Lantus 35 units SQ qAM, 30 units HS * Bolus insulin * NovoLog per scale ACHS or Q6hrs while NPO * Goal Range: Low 110 mg/dL - High 140 mg/dL * Correction Factor: 20 mg/dL/unit * Nutritional / Prandial insulin per carb ratio of 1 unit per 3 grams CHO consumed
[2024-02-20 14:51] VITALS: RESP 16
[2024-02-20] MEDS: oxyCODONE HCL IR 5 MG TAB (IMMEDIATE RELEASE) PO PRN (20:03)
[2024-02-20 20:16] VITALS: TEMP 97.7
[2024-02-21] MEDS: LORazepam 0.5 MG TAB PO STA (03:56)
[2024-02-21] MEDS ORDERED: HYDROmorphone INJ 0.5 MG/0.5 ML SYR IV STA (05:54)
[2024-02-21] MEDS ORDERED: oxyCODONE HCL IR 5 MG TAB (IMMEDIATE RELEASE) PO STA (06:02)
[2024-02-21 08:10] VITALS: PULSE 91; O2SAT 96
[2024-02-21] MEDS: LANTUS PER UNIT CHARGE SC SCH (08:25)
[2024-02-21 10:07] VITALS: BP 158/73
--- NOTE | 2024-02-21 13:18 | Discharge Summary ---
Date of Service February 21, 2024 Admission HPI Per Admitting Provider 58-year-old male with past medical history significant for type 2 diabetes, diabetic polyneuropathy, diabetic retinopathy, testicular hypofunction, hyperlipidemia, hypothyroidism, obstructive sleep apnea, asthma in remission, chronic systolic and diastolic CHF, history of CAD, history of pulmonary hypertension, history of ventricular tachycardia, status post AICD, history of atrial fibrillation, history of chronic cor pulmonale, peripheral artery disease, venous stasis ulcers, hypertension, morbid obesity, vitamin D deficiency, chronic ulcer of the right lower leg, anemia, status post left BKA, depression, statin intolerance, currently residing at [facility] comes for possible PICC placement and IV antibiotics for left right lower leg wound. Patient is following with the wound care. Wound VAC placed on right foot about couple of weeks ago per patient. Few days ago last Thursday biopsy of the right foot was done. Patient does not know the results of the biopsy. [facility] not [facility] and was not started on antibiotics. Patient says he called EMS and came here. We do not have records of the wound care currently. Denies any fever. Has pain in the right leg. Ambulates with a cane. Somewhat constipated. Denies any blood in the stools. Micturating okay. Denies abdominal pain. No nausea. No chest pain. No shortness of breath. No headache no dizziness. No blurred vision. No sore throat or cough. Hemodynamics are okay.Ambulates with cane.States last several days not taking Coumadin in anticipation of PICC line placement. Admission Exam Per Admitting Provider General- adult Head- atraumatic Eyes- PERRL. ENT- oropharynx clear Neck- supple, no JVD. Lungs- clear to auscultation no wheezing or crackles Heart- regular rhythm; no murmur, no gallop. Abdomen- normal bowel sounds, soft, nontender, no distension Extremities- left BKA. Right lower extremity swollen and erythematous. mild drainage seen in mcknight region. right foot wound vac seen Neuro- alert, oriented PERRL, no facial palsy; no dysarthria Principal Diagnosis Right leg wound/ulceration /cellulitis PVD/venous stasis/lymphedema Right Calcaneal osteomyelitis--POA S/p wound VAC in right foot Discharge Exam Physical Exam: Vitals signs as noted above General Appearance:Obese, no apparent distress Head: normocephalic, Atraumatic Eyes: normal inspection, EOMI Neck: supple, Trachea midline Respiratory/Chest: Normal breath sounds, CTA, No accessory muscle use Cardiovascular: Irregularly irregular, No murmur Abdomen/GI:Soft, Non tender, Bowel sounds present Extremities/Musculoskeletal:normal inspection, superficial hematoma present on anterior mcknight;no signs or symptoms of bleeding. Wound VAC in place Neurologic/Psych:AAOX3, grossly no focal neurological deficits Skin: normal color, warm Discharge Data Allergies Allergy/AdvReac Type Severity Reaction Status Date / Time benzonatate AdvReac Intermediate choking, Verified 01/07/24 13:17 gagging Consultations 02/09/24 00:27 ED Decision to Admit Stat 02/09/24 08:00 Consult Podiatry Routine 02/09/24 10:27 Consult Vascular Surgery Routine 02/10/24 13:11 HIM [Consult Health Information Management] Routine 02/13/24 11:26 Consult Infectious Diseases Routine 02/14/24 08:57 Consult Nephrology Routine Procedures Performed Operation Date: 02/16/24 08:00 Actual Procedures p Vein Ablation Unilateral - Nader Adams MD Ordered Studies 02/09/24 09:05 US arterial duplex LE RT Routine US venous doppler LE RT Routine 02/09/24 12:27 CT foot RT wo con Urgent 02/12/24 12:00 EP Lab Images for PACS ONCE 02/12/24 13:19 CL Cath Imgs for PACS use only Routine 02/14/24 08:57 US renal/blad retro comp Routine 02/16/24 08:00 US guide intraoperative Stat 02/19/24 US venous doppler LE RT Routine Hospital Course (1) Leg wound, right: Plan 58-year-old male with past medical history significant for type 2 diabetes, diabetic polyneuropathy, diabetic retinopathy, testicular hypofunction, hyperl ipidemia, hypothyroidism, obstructive sleep apnea, asthma in remission, chronic systolic and diastolic CHF, history of CAD, history of pulmonary hypertension, history of ventricular tachycardia, status post AICD, history of atrial fibrillation, history of chronic cor pulmonale, peripheral artery disease, venous stasis ulcers, hypertension, Obesity III, vitamin D deficiency, chronic ulcer of the right lower leg, anemia, status post left BKA, depression, statin intolerance, residing at [facility] comes for possible PICC placement and IV antibiotics for right lower leg wound. Right leg wound/ulceration /cellulitis PVD/venous stasis/lymphedema Right Calcaneal osteomyelitis--POA S/p wound VAC in right foot --Venous Doppler:Highly limited study with no evaluation of the distal popliteal vein or calf veins due to body habitus. No obvious deep venous thrombus is seen. Soft tissue edema is noted. --RLE Arterial Doppler:The distal superficial femoral artery and the distal popliteal artery were not visualized and patency is not confirm. The proximal posterior tibial and peroneal arteries are patent. The mid to distal portions of the vessels are not identified and patency could not be assessed. The anterior tibial artery and the dorsalis pedis artery are patent. --Foot CT:Findings compatible with osteomyelitis about a large heel ulcer. No drainable abscess is seen. --S/P right foot calcanectomy --S/P right lower extremity angiogram:no significant arterial disease in the right leg from iliacs through tibial arteries. Pedal vessels patent with direct inline flow to the heel. No targets for revascularization. --Wound culture 02/10: Growing Pseudomonas, Acaligenes fecalis, Morganella S/P successful endovenous ablation of right remnant GSV and right SSV by Dr. Adams Patient refuses to be on diabetic diet/fluid restriction despite explaining the risks and complications ID recommended 6 weeks of meropenem and Daptomycin. Discussed with pharmacy regarding the dosing; started on 1 g meropenem 3 times daily and daptomycin. PICC line placed on 02/17; case management on board for home health placement. I discussed with patient in details about importance of regular follow-ups, compliance with medication and diet. I recommended him to go to rehab as he has multiple medical issues that is difficult to manage at home even with home health. He verbalized understanding. He also verbalized that he accepts any adverse complications( severe sepsis, multiorgan failure, ) and would like to go home. Needs follow-up with podiatry on discharge 02/18/2025 Plan was for patient to go home on home health However, patient profusely started bleeding from right lower extremity from one of the open areas. Patient seen immediately at bedside; Bleeding stopped after applying pressure. CBC obtained; hemoglobin is stable around 12.8 Heparin/Coumadin discontinued Discharge canceled. 02/20/2024 No signs or symptoms of bleeding noted in the right leg Patient was evaluated by podiatry and vascular surgery on 02/18 later in the evening. Discharge on hold due to unavailability of home health and transportation. 02/21/2024 No significant events overnight Patient reported that he is feeling much better and wants to go home. I encouraged patient to remain in the hospital and consider rehab placement. However, patient reports good support at home and thinks he will feel better and able to take care of himself at home. Patient discharged home. Please note the above document was generated using voice recognition software. It may contain grammatical, syntax or spelling errors. Any formal questions or concerns about the content, text or information contained within the body of this dictation should be directly addressed to the provider for clarification Total Time Total Time Spent Total Time Spent (In Minutes): 45 Total Time Includes: Examination of the Patient, Discharge Planning, Medication Reconciliation, Communication With Other Providers and Other Discharge Plan Discharge Items Patient Disposition: Home - Self-Care Reason For Visit: RT LEG INFECTION / OSTEOMYELITIS, HX OF CHF Discharge Diagnosis: Right leg wound/ulceration /cellulitis PVD/venous stasis/lymphedema Right Calcaneal osteomyelitis--POA S/p wound VAC in right foot Activity: Resume your previous activity Non-emergency contact: Primary Care Provider Call non-emergency contact if: you have any medication questions and your symptoms worsen Follow-up/Referrals: Giuliana Hernandez PA-C [Physician [employer]] - 02/24/24 1:00 pm Carolyn Crowe MD, PhD [Physician] - (The Nephrology office will contact you for a follow up appointment and lab work.) Sherry Maya DO [Outside Practitioners] - (Date & Time 02/25/2024 11:20 AM Provider Kwame Parks MD Department [facility] ) Bruno Tyler DPM [Physician] - 02/26/24 9:00 am Alise Heck PA-C [Physician [employer]] - (Date & Time 02/23/2024 2:30 PM Provider Alise Heck PA-C Department Cardiology, [facility] ) Diet: Regular Addtl Attending Provider Instructions: You were admitted to the hospital with osteomyelitis of the foot; you underwent debridement. You are prescribed antiboitics for next 6 weeks. Please follow up with wound care, anticoagulation clinic and your PCP. Pending Studies at Discharge: No Stand-Alone Forms: My [facility], Smoking Cessation Medications and DC Order Prescriptions: Continued acetaminophen [Tylenol] 325 mg Tablet 650 mg PO QID PRN (Reason: Pain) aspirin 81 mg Tablet,Delayed Release (Dr/Ec) 81 mg PO DAILY ergocalciferol (vitamin D2) 50,000 unit Tablet 50,000 unit PO WK Rx Instructions: on thursday levothyroxine 88 mcg Tablet 88 mcg PO DAILY bisacodyl [Dulcolax (bisacodyl)] 10 mg Suppository [address] DAILY PRN (Reason: Constipation) hyoscyamine sulfate 0.125 mg Tablet 0.125 mg PO Q4H PRN (Reason: Abdominal Pain) ferrous sulfate 325 mg (65 mg iron) Tablet 325 mg PO BID Januvia 50 mg Tablet 50 mg PO DAILY Lantus Solostar U-100 Insulin 40 units 40 units SC BID metolazone 2.5 mg tablet 2.5 mg PO UD Hold Instructions: Resume on 02/23/24. Rx Instructions: metolazone 2.5mg one tab on thu, thu and thursday potassium chloride 20 mEq tablet,ER particles/crystals 20 meq PO BID insulin aspart U-100 [Novolog U-100 Insulin aspart] 100 unit/mL Solution 10 unit SUBCUT AC metoprolol tartrate 50 mg Tablet 50 mg PO TID omeprazole 20 mg capsule,delayed release(DR/EC) 20 mg PO DAILY multivitamin,ip-dqcm-Li-FA-min Tablet 1 tab PO DAILY pregabalin 50 mg capsule 50 mg PO BID oxycodone 10 mg tablet 20 mg PO Q4H PRN (Reason: Pain, Severe) nystatin 100,000 unit 1 applic EXT UD Rx Instructions: nystatin powder to abdominal fold bid sennosides-docusate sodium [Senna-S] 8.6-50 mg Tablet 2 tab-cap PO HS spironolactone 25 mg tablet 25 mg PO DAILY warfarin 3 mg Tablet 3 mg PO DAILY triamcinolone acetonide 0.1 % Lotion 1 applic TOPICAL TID torsemide 60 mg 60 mg PO DAILY Hold Instructions: Resume on 02/22/24. Held atorvastatin 80 mg tablet 80 mg PO DAILY Hold Instructions: Resume on 03/23/24. Hold till completion of antiboitics Discontinued cefepime 2 gram recon soln 2 g IV BID Discharge Orders: Discharge Order (Routine); Ordered 02/21/24 Ordered By: Michele Kang/Other Patient Handouts: Nutrition for Wound Healing Admission Data Admit Date/Time: 02/09/24 00:21 Attending Provider: Michele Mathias Admit Provider: Fei Pendleton Primary Care Provider: PCP,NO Other Providers: Fei Pendleton; Bruno Tyler; Nader Adams; Kirk Torres; Adolph Canales; Alberto Payne I.; Husam Perkins II; Sherry Prakash; Declan Reynoso; Ricardo Lloyd; Jerald Singh Other Interventions: Discharge Summary Assessment (RN) Last Done: 02/21/24 10:05
== END 2024-02-21 11:29 | disposition home or self-care (01) | DRG 628 ==
LOC: ED 19:17 → 2E 02-09 00:21 → SUATTDRO 02-09 00:21 → 2E 02-09 00:53 → 2N 02-13 11:28 → 3E 02-19 12:16
PROC: CLB.AEU (2024-02-12 12:00)

== ENCOUNTER 2024-05-23 18:24 | Inpatient (IN) ==
[2024-05-23 19:05] LABS: iSTAT Hemoglobin 11.2 g/dl (14.0-18.0); iSTAT Potassium 4.2 mmol/L (3.3-5.0)
--- NOTE | 2024-05-23 19:35 | Emergency Department Note ---
Impression & Plan Atrial fibrillation with RVR, Cellulitis of left lower leg ED Provider Note Diagnosis: A-fib with RVR, left lower extremity cellulitis Disposition: Admission CHIEF COMPLAINT: Fall HPI: Patient is a 58-year-old male status post mechanical fall. Patient states he is wheelchair-bound at baseline and got tangled up in some blankets and fell out of the wheelchair. Patient is on warfarin. Patient denies having loss consciousness. Patient denies pain to anywhere on his body new from the fall. Patient states he has noticed left lower extremity swelling and redness over the past couple days time. Patient is in A-fib with RVR on presentation. Patient states he goes in and out of A-fib at baseline. PAST MEDICAL HISTORY: See Below PAST SURGICAL HISTORY: See Below SOCIAL HISTORY: See Below HOME MEDICATIONS: See Below ALLERGIES: See Below VITALS: See Below PHYSICAL EXAMINATION: GENERAL: Well appearing, well nourished, NAD, non-toxic. EYE EXAM: Normal conjunctiva. OROPHARYNX: Moist mucus membranes. Grossly normal dentition. NECK: Supple, no midline tenderness LUNGS: Clear to auscultation. Normal chest wall mechanics. HEART: Irregular regular rhythm, tachycardia ABDOMEN: Abdomen soft, non-tender, normo-active bowel sounds, no masses, no rebound or guarding BACK: No CVA TTP. SKIN: No rashes and no bruising. UPPER EXTREMITIES: Upper extremities are grossly normal LOWER EXTREMITIES: Swelling and erythema to the left lower extremity, amputation present, right lower extremity wrapped from recent procedure NEURO EXAM: A&O x3,, normal speech, moves all 4 extremities PSYCH: Cooperative MEDICAL DECISION MAKING: History obtained from: Patient ER Course: Patient is a 58-year-old male presenting status post mechanical fall. Patient states he is in a wheelchair at baseline. Patient had recent operation to his right lower extremity 3 to 4 days prior. 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 Patient states that he got caught up in blankets in his wheelchair and fell out today. Patient is on warfarin. Patient denies having loss conscious. Patient did have CT scans of head and neck which were negative for acute traumatic injury. Patient denies any new pain to his back or lower extremities. Patient on exam has significant swelling and erythema and warmth of the skin of the left lower extremity. Patient has elevated CRP and sed rate. Patient has obvious cellulitis on exam. Patient started on Rocephin and vancomycin. Patient found while in the emergency room to be in A-fib with RVR. Patient states he normally bounces in and out of A- fib. Patient started on Cardizem drip. Patient's heart rate now controlled. Patient's case discussed with hospital service further treatment and evaluation Labs (independently interpreted) are significant for: Elevated sed rate and CRP Imaging results (independently interpreted): Chest x-ray clear EKG interpretation (independently interpreted): Atrial fibrillation with RVR no ST segment elevation or depression Medications given: Normal saline, Cardizem, morphine, Rocephin, vancomycin Consultants: Hospitalist Chronic conditions affecting care: Atrial fibrillation Triage Nursing notes reviewed and agree them. 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 follows with Dr. Maya. 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) (Chronic) Peripheral arterial disease (Chronic) History of COVID-19 (Chronic) History of amputation of left foot (Chronic) Adjustment disorder with mixed disturbance of emotions and conduct MDD (major depressive disorder), recurrent episode, mild Medical History (Updated 05/24/24 @ 02:13 by Davon Chen DO) Osteomyelitis of foot, right, acute Adult failure to thrive Diabetes Acute on chronic combined systolic and diastolic CHF (congestive heart failure) Depression with suicidal ideation Acute osteomyelitis of left foot T2DM (type 2 diabetes mellitus) CHF (congestive heart failure) Acute on chronic combined systolic (congestive) and diastolic (congestive) heart failure Diabetic ulcer of right foot Sustained ventricular tachycardia Pneumonia due to COVID-19 virus SARS-CoV-2 positive Sepsis Cellulitis of left lower leg Diabetic ulcer of left heel associated with diabetes mellitus due to underlying condition, limited to breakdown of skin Acute on chronic renal failure Acute hypoxemic respiratory failure Sleep apnea BIPAP Rectal bleeding Depression Deformity of foot Adams fracture Base of left fifth metatarsal, nonhealing x years Diabetic ulcer of left foot associated with type 2 diabetes mellitus, with fat layer exposed Hx of sepsis 06/2019 Arthritis Venous stasis ulcer of right lower leg with edema of right lower leg Hypokalemia Bacteremia due to group B Streptococcus Lymphedema Sustained VT (ventricular tachycardia) GERD (gastroesophageal reflux disease) Hx of osteomyelitis Hx of myocardial infarction found on testing 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 CKD (chronic kidney disease) stage 3, GFR 30-59 ml/min Surgical History History of esophagogastroduodenoscopy (EGD) H/O foot surgery LEFT FOOT ULCER DEBRIDEMENT H/O cardiac radiofrequency ablation OCTOBER 2019 ([facility]) AT [facility] History of cardiac cath V. tach -- no stent. 06/2019. unsure where it was done History of sinus surgery Hx of tonsillectomy History of colonoscopy Hx of amputation of lesser toe H/O shoulder surgery left Family History Sister Family history of diabetes mellitus 2 Grandmother (Maternal) Family history of diabetes mellitus Grandfather (Maternal) Family history of diabetes mellitus Father Cancer Mother Cancer Other No family history of adverse response to anesthesia Social History Smoking Status: Never smoker Second Hand Exposure: No; Do You Dip or Chew Tobacco: No; Hx Alcohol Use: Yes Alcohol type: hard liquor Hx Substance Use: No Preferred Language: Kyrgyz Communication Ability: Effective It Infrastructure Specialist Required: No Beliefs That Will Affect Care: None marital status: Current Living Situation: Alone current occupational status: disabled How many Children do You have: 3 Feels Safe at Home: Yes Assistive Devices: Cane, Walker and Wheelchair Allergies Allergies Allergy/AdvReac Type Severity Reaction Status Date / Time benzonatate AdvReac Intermediate choking, Verified 01/07/24 13:17 gagging Home Meds Home Medications Medication Instructions Recorded Confirmed Lantus Solostar U-100 Insulin 40 units SC BID 02/08/24 02/09/24 acetaminophen 325 mg tablet 650 mg PO QID PRN Pain 02/08/24 02/09/24 (Tylenol) aspirin 81 mg tablet,delayed 81 mg PO DAILY 02/08/24 02/09/24 release atorvastatin 80 mg tablet 80 mg PO DAILY 02/08/24 02/09/24 bisacodyl 10 mg rectal suppository 10 mg NV DAILY PRN Constipation 02/08/24 02/09/24 (Dulcolax (bisacodyl)) ergocalciferol (vitamin D2) 50,000 50,000 unit PO WK 02/08/24 02/09/24 unit tablet ferrous sulfate 325 mg (65 mg 325 mg PO BID 02/08/24 02/09/24 iron) tablet hyoscyamine sulfate 0.125 mg tablet 0.125 mg PO Q4H PRN Abdominal Pain 02/08/24 02/09/24 insulin aspart U-100 100 unit/mL 10 unit subcut AC 02/08/24 02/09/24 subcutaneous solution (Novolog U-100 Insulin aspart) levothyroxine 88 mcg tablet 88 mcg PO DAILY 02/08/24 02/09/24 metolazone 2.5 mg tablet 2.5 mg PO UD 02/08/24 02/09/24 metoprolol tartrate 50 mg tablet 50 mg PO TID 02/08/24 02/09/24 multivitamin,vf-prbe-[id number]-[id number]-min 1 tab PO DAILY 02/08/24 02/09/24 nystatin 1 applic EXT UD 02/08/24 02/09/24 omeprazole 20 mg capsule,delayed 20 mg PO DAILY 02/08/24 02/09/24 release oxycodone 10 mg tablet 20 mg PO Q4H PRN Pain, Severe 02/08/24 02/09/24 potassium chloride 20 mEq 20 meq PO BID 02/08/24 02/09/24 tablet,extended release(part/cryst) pregabalin 50 mg capsule 50 mg PO BID 02/08/24 02/09/24 sitagliptin phosphate 50 mg tablet 50 mg PO DAILY 02/08/24 02/09/24 (Januvia) sennosides 8.6 mg-docusate sodium 2 tab-cap PO HS 02/09/24 02/09/24 50 mg tablet (Senna-S) spironolactone 25 mg tablet 25 mg PO DAILY 02/09/24 02/09/24 torsemide 60 mg PO DAILY 02/09/24 02/09/24 triamcinolone acetonide 0.1 % 1 applic topical TID 02/09/24 02/09/24 lotion warfarin 3 mg tablet 3 mg PO DAILY 02/09/24 02/09/24 Results & Data (ED) Vital Signs Vital Signs - 24 hr 05/23/24 18:25 05/23/24 18:51 05/23/24 19:59 Temperature 36.8 C Temperature Source Oral Pulse Rate 112 H 116 H Pulse Rate [Apical] 106 H Pulse Rate from SpO2 Sensor Respiratory Rate 20 22 Blood Pressure 128/45 L Blood Pressure [Right Arm] 125/72 Blood Pressure Mean 72 Blood Pressure Mean [Right Arm] 89 Blood Pressure Position Semi-fowlers Blood Pressure Position [Right Arm] Semi-fowlers Pulse Oximetry 97 95 Oxygen Delivery Method Room Air Room Air Oxygen Flow Rate Sepsis Recent Fever Within 48 Hours No Sepsis New/Unexplained Change in Mental Status No Sepsis Action Taken by Nursing No Action Required 05/23/24 19:59 05/23/24 20:25 05/23/24 21:02 Temperature Temperature Source Pulse Rate 117 H Pulse Rate [Apical] 95 H 105 H Pulse Rate from SpO2 Sensor Respiratory Rate 17 13 22 Blood Pressure Blood Pressure [Right Arm] 105/76 131/64 Blood Pressure Mean Blood Pressure Mean [Right Arm] 85 86 Blood Pressure Position Blood Pressure Position [Right Arm] Semi-fowlers Pulse Oximetry 97 96 95 Oxygen Delivery Method Room Air Room Air Nasal Cannula Oxygen Flow Rate 2 Sepsis Recent Fever Within 48 Hours Sepsis New/Unexplained Change in Mental Status Sepsis Action Taken by Nursing 05/23/24 21:45 05/23/24 22:10 05/23/24 22:21 Temperature Temperature Source Pulse Rate 98 H Pulse Rate [Apical] Pulse Rate from SpO2 Sensor 93 H Respiratory Rate 21 Blood Pressure 114/64 94/68 L 101/56 L Blood Pressure [Right Arm] Blood Pressure Mean 70 71 71 Blood Pressure Mean [Right Arm] Blood Pressure Position Blood Pressure Position [Right Arm] Pulse Oximetry 98 Oxygen Delivery Method Oxygen Flow Rate Sepsis Recent Fever Within 48 Hours Sepsis New/Unexplained Change in Mental Status Sepsis Action Taken by Nursing 05/23/24 22:31 05/23/24 22:36 05/23/24 22:45 Temperature Temperature Source Pulse Rate 85 Pulse Rate [Apical] 88 Pulse Rate from SpO2 Sensor 85 Respiratory Rate 18 16 Blood Pressure 104/72 Blood Pressure [Right Arm] 110/91 Blood Pressure Mean 79 Blood Pressure Mean [Right Arm] 97 Blood Pressure Position Blood Pressure Position [Right Arm] Semi-fowlers Pulse Oximetry 98 97 Oxygen Delivery Method Nasal Cannula Oxygen Flow Rate 2 Sepsis Recent Fever Within 48 Hours Sepsis New/Unexplained Change in Mental Status Sepsis Action Taken by Nursing 05/23/24 22:46 05/23/24 23:00 05/23/24 23:16 Temperature Temperature Source Pulse Rate 80 90 108 H Pulse Rate [Apical] Pulse Rate from SpO2 Sensor 89 Respiratory Rate 16 16 Blood Pressure 104/75 109/58 L Blood Pressure [Right Arm] Blood Pressure Mean 82 78 Blood Pressure Mean [Right Arm] Blood Pressure Position Blood Pressure Position [Right Arm] Pulse Oximetry 97 97 Oxygen Delivery Method Oxygen Flow Rate Sepsis Recent Fever Within 48 Hours Sepsis New/Unexplained Change in Mental Status Sepsis Action Taken by Nursing 05/23/24 23:30 05/23/24 23:45 05/24/24 00:15 Temperature Temperature Source Pulse Rate 98 H 99 H 100 H Pulse Rate [Apical] Pulse Rate from SpO2 Sensor Respiratory Rate 20 18 18 Blood Pressure 113/58 L 124/67 115/64 Blood Pressure [Right Arm] Blood Pressure Mean 82 86 74 Blood Pressure Mean [Right Arm] Blood Pressure Position Blood Pressure Position [Right Arm] Pulse Oximetry 96 96 Oxygen Delivery Method Oxygen Flow Rate Sepsis Recent Fever Within 48 Hours Sepsis New/Unexplained Change in Mental Status Sepsis Action Taken by Nursing 05/24/24 00:30 05/24/24 00:30 05/24/24 00:39 Temperature Temperature Source Pulse Rate 100 H 95 H 87 Pulse Rate [Apical] Pulse Rate from SpO2 Sensor 90 Respiratory Rate 17 14 12 Blood Pressure 103/73 Blood Pressure [Right Arm] Blood Pressure Mean 80 Blood Pressure Mean [Right Arm] Blood Pressure Position Blood Pressure Position [Right Arm] Pulse Oximetry 96 94 Oxygen Delivery Method Oxygen Flow Rate Sepsis Recent Fever Within 48 Hours Sepsis New/Unexplained Change in Mental Status Sepsis Action Taken by Nursing 05/24/24 00:45 05/24/24 00:45 05/24/24 00:45 Temperature Temperature Source Pulse Rate Pulse Rate [Apical] Pulse Rate from SpO2 Sensor Respiratory Rate Blood Pressure 105/35 L 105/35 L 105/35 L Blood Pressure [Right Arm] Blood Pressure Mean 55 55 55 Blood Pressure Mean [Right Arm] Blood Pressure Position Blood Pressure Position [Right Arm] Pulse Oximetry Oxygen Delivery Method Oxygen Flow Rate Sepsis Recent Fever Within 48 Hours Sepsis New/Unexplained Change in Mental Status Sepsis Action Taken by Nursing 05/24/24 00:48 05/24/24 01:00 05/24/24 01:15 Temperature Temperature Source Pulse Rate 99 H 96 H 97 H Pulse Rate [Apical] Pulse Rate from SpO2 Sensor 96 H 95 H 95 H Respiratory Rate 15 21 15 Blood Pressure 107/72 114/72 Blood Pressure [Right Arm] Blood Pressure Mean 83 81 Blood Pressure Mean [Right Arm] Blood Pressure Position Blood Pressure Position [Right Arm] Pulse Oximetry 92 92 94 Oxygen Delivery Method Oxygen Flow Rate Sepsis Recent Fever Within 48 Hours Sepsis New/Unexplained Change in Mental Status Sepsis Action Taken by Nursing 05/24/24 01:18 05/24/24 01:30 Temperature Temperature Source Pulse Rate 89 92 H Pulse Rate [Apical] Pulse Rate from SpO2 Sensor 90 Respiratory Rate 9 L 20 Blood Pressure 122/63 Blood Pressure [Right Arm] Blood Pressure Mean 74 Blood Pressure Mean [Right Arm] Blood Pressure Position Blood Pressure Position [Right Arm] Pulse Oximetry 91 91 Oxygen Delivery Method Oxygen Flow Rate Sepsis Recent Fever Within 48 Hours Sepsis New/Unexplained Change in Mental Status Sepsis Action Taken by Nursing Laboratory Data 05/23/24 18:44 05/23/24 18:44 Lab Results 05/23/24 05/23/24 05/23/24 Range/Units 18:44 18:52 19:53 WBC 7.76 (4.8-10.8) K/ul RBC 4.03 L (4.70-6.10) M/uL Hgb 10.7 L (14.0-18.0) g/dl POC Hgb 11.2 L (14.0-18.0) g/dl Hct 34.1 L (42.0-52.0) % POC Hct 33 L (42-52) % MCV 84.6 (80.0-100.0) fL MCH 26.6 (25.0-34.0) pg MCHC 31.4 L (32.0-36.0) g/dL RDW Std Deviation 59.4 H (36.4-46.3) fL RDW Coeff of Мария 19.6 H (11.5-14.5) % Plt Count 326 (130-400) K/uL MPV 9.5 (9.4-12.4) fL Immature Gran % (Auto) 0.5 % Neut % (Auto) 78.2 % Lymph % (Auto) 6.8 % Childress % (Auto) 12.5 % Eos % (Auto) 1.2 % Baso % (Auto) 0.8 % Neut # (Auto) 6.07 (1.40-6.50) K/uL Lymph # (Auto) 0.53 L (1.20-3.40) K/uL Childress # (Auto) 0.97 H (0.11-0.59) K/uL Eos # (Auto) 0.09 (0.00-0.50) K/uL Baso # (Auto) 0.06 (0.00-0.20) K/uL Immature Gran # (Auto) 0.04 (0.01-0.20) K/uL ESR > 130 H (0-20) mm/hr PT Cancelled INR Cancelled APTT Cancelled PTT Ratio Cancelled POC Sodium 139 (135-144) mmol/L Sodium 137 (136-145) mmol/L POC Potassium 4.2 (3.3-5.0) mmol/L Potassium 3.6 (3.5-5.1) mmol/L POC Chloride 101 (101-112) mmol/L Chloride 99 (98-107) mmol/L Carbon Dioxide 25 (21-32) mmol/L POC Total CO2 27 (24-31) mmol/L Anion Gap 13 H (3-11) POC Anion Gap 16.0 (16-25) mmol/L POC BUN 31 H (7-18) mg/dl BUN 28 H (6-23) mg/dl Creatinine 1.93 H (0.6-1.4) mg/dl POC Creatinine 2.0 H (0.6-1.3) mg/dl Est Cr Clr Drug Dosing 63.3 ml/min eGFR 39.14 BUN/Creatinine Ratio 14.5 (10-20) Glucose 104 H (70-99(Fasting)) mg/dl POC Glucose (other) 108 H (70-99) mg/dl Lactate 1.8 (0.4-2.0) mmol/L Calcium 8.4 L (8.6-10.3) mg/dl POC Ioniz Calcium Homa 1.00 L (1.12-1.32) mmol/l Magnesium 1.7 (1.7-2.4) mg/dl Total Bilirubin 1.8 H (0.2-1.0) mg/dl Direct Bilirubin 0.8 H (0-0.2) mg/dl AST 22 (13-39) U/L ALT 6 L (7-52) U/L Alkaline Phosphatase 83 (34-104) U/L Troponin I High Sens 13.0 (0-20) pg/ml C-Reactive Protein 11.86 H (0-0.5) mg/dl B-Natriuretic Peptide 110 H (0-100) pg/ml Total Protein 7.8 (6.0-8.3) gm/dl Albumin 2.7 L (3.4-5.0) gm/dl Procalcitonin 0.67 H (0-0.5) ng/ml TSH 6.188 H (0.300-4.500) uIu/ml Free T4 1.26 (0.61-1.60) ng/dl 05/23/24 Range/Units 20:43 WBC (4.8-10.8) K/ul RBC (4.70-6.10) M/uL Hgb (14.0-18.0) g/dl POC Hgb (14.0-18.0) g/dl Hct (42.0-52.0) % POC Hct (42-52) % MCV (80.0-100.0) fL MCH (25.0-34.0) pg MCHC (32.0-36.0) g/dL RDW Std Deviation (36.4-46.3) fL RDW Coeff of Мария (11.5-14.5) % Plt Count (130-400) K/uL MPV (9.4-12.4) fL Immature Gran % (Auto) % Neut % (Auto) % Lymph % (Auto) % Childress % (Auto) % Eos % (Auto) % Baso % (Auto) % Neut # (Auto) (1.40-6.50) K/uL Lymph # (Auto) (1.20-3.40) K/uL Childress # (Auto) (0.11-0.59) K/uL Eos # (Auto) (0.00-0.50) K/uL Baso # (Auto) (0.00-0.20) K/uL Immature Gran # (Auto) (0.01-0.20) K/uL ESR (0-20) mm/hr PT 40.8 H INR 4.3 H APTT 42 H PTT Ratio 1.6 POC Sodium (135-144) mmol/L Sodium (136-145) mmol/L POC Potassium (3.3-5.0) mmol/L Potassium (3.5-5.1) mmol/L POC Chloride (101-112) mmol/L Chloride (98-107) mmol/L Carbon Dioxide (21-32) mmol/L POC Total CO2 (24-31) mmol/L Anion Gap (3-11) POC Anion Gap (16-25) mmol/L POC BUN (7-18) mg/dl BUN (6-23) mg/dl Creatinine (0.6-1.4) mg/dl POC Creatinine (0.6-1.3) mg/dl Est Cr Clr Drug Dosing ml/min eGFR BUN/Creatinine Ratio (10-20) Glucose (70-99(Fasting)) mg/dl POC Glucose (other) (70-99) mg/dl Lactate (0.4-2.0) mmol/L Calcium (8.6-10.3) mg/dl POC Ioniz Calcium Homa (1.12-1.32) mmol/l Magnesium (1.7-2.4) mg/dl Total Bilirubin (0.2-1.0) mg/dl Direct Bilirubin (0-0.2) mg/dl AST (13-39) U/L ALT (7-52) U/L Alkaline Phosphatase (34-104) U/L Troponin I High Sens (0-20) pg/ml C-Reactive Protein (0-0.5) mg/dl B-Natriuretic Peptide (0-100) pg/ml Total Protein (6.0-8.3) gm/dl Albumin (3.4-5.0) gm/dl Procalcitonin (0-0.5) ng/ml TSH (0.300-4.500) uIu/ml Free T4 (0.61-1.60) ng/dl Administered Medications Diltiazem HCl 125 mg/ Dextrose 125 mls @ 5 mls/hr IV .Q24H MATT; Protocol Stop: 06/22/24 19:14 Last Titration: 05/23/24 22:29 Dose: 2.5 mg/hr, 2.5 mls/hr Documented By: JUAN Co-signed By: LARISSA Admin: 05/23/24 21:03 Dose: 5 mg/hr, 5 mls/hr Documented By: CEF Co-signed By: LARISSA Magnesium Sulfate/Dextrose (Magnesium Sulfate / D5w) 1 gm in 100 mls @ 50 mls/hr IV Q2H MATT Stop: 05/24/24 03:44 Last Admin: 05/24/24 00:27 Dose: 50 mls/hr Documented By: VAMSHI Discontinued Medications Diltiazem HCl (Diltiazem Hcl 5 Mg/Ml 5 Ml Vial) 10 mg IV NOW STA Stop: 05/23/24 19:15 Last Admin: 05/23/24 20:26 Dose: 10 mg Documented By: CEF Co-signed By: JALEESA Sodium Chloride (Nss) 1,000 mls @ 999 mls/hr IV .Q1H1M MATT Stop: 05/23/24 20:15 Last Infusion: 05/23/24 22:32 Dose: Infused Documented By: Admin: 05/23/24 19:58 Dose: 999 mls/hr Documented By: LAMAR Ceftriaxone Sodium (Rocephin) 2,000 mg in 50 mls @ 100 mls/hr IV NOW STA Stop: 05/23/24 23:37 Last Infusion: 05/24/24 00:26 Dose: Infused Documented By: Admin: 05/23/24 23:28 Dose: 100 mls/hr Documented By: VAMSHI Vancomycin HCl 2,750 mg/ (Sodium Chloride) 555 mls @ 200 mls/hr IV NOW ONE Stop: 05/24/24 01:57 Last Admin: 05/24/24 00:23 Dose: 200 mls/hr Documented By: VAMSHI Albumin Human (Albumin 25%) 25 gm in 100 mls @ 50 mls/hr IV ONE ONE Stop: 05/24/24 01:46 Last Admin: 05/24/24 00:32 Dose: 50 mls/hr Documented By: VAMSHI Loratadine (Loratadine 10 Mg Tab) 10 mg PO NOW ONE Stop: 05/24/24 01:00 Last Admin: 05/24/24 01:11 Dose: 10 mg Documented By: VAMSHI Miscellaneous (Stat Iv Infusion Titration Per Protocol) 1 each N/A NOW STA Stop: 05/23/24 19:15 Last Admin: 05/23/24 22:29 Dose: Not Given Documented By: CEF Morphine Sulfate (Morphine Sulfate 4 Mg/Ml 1 Ml Carp\Vial) 4 mg IV NOW STA Stop: 05/23/24 19:28 Last Admin: 05/23/24 19:57 Dose: 4 mg Documented By: LAMAR Morphine Sulfate (Morphine Sulfate 4 Mg/Ml 1 Ml Carp\Vial) 4 mg IV NOW STA Stop: 05/23/24 23:31 Last Admin: 05/23/24 23:33 Dose: 4 mg Documented By: VAMSHI Oxycodone HCl (Oxycodone Hcl Ir 5 Mg Tab (Immediate Release)) 5 mg PO NOW STA Stop: 05/24/24 00:57 Last Admin: 05/24/24 01:11 Dose: 5 mg Documented By: VAMSHI Imaging Data Radiologist's Impression: Cervical Spine CT 05/23/24 19:12 Exam(s): CT C SPINE EXAM: CT Cervical Spine Without Intravenous Contrast CLINICAL HISTORY: Reason for exam: fall on blood thinner. TECHNIQUE: Axial computed tomography images of the cervical spine without intravenous contrast. CTDI is 25.21 mGy and DLP is 558.08 mGy-cm. Automated exposure control was utilized for the study. A dose lowering technique was utilized adhering to the principles of ALARA. COMPARISON: No relevant prior studies available. FINDINGS: Vertebrae: Mild narrowing and osteophytosis at the atlantodental joint. No acute fracture. Soft tissues: Unremarkable. Vasculature: Mild calcification of the carotid bifurcation bilaterally. DISCS/SPINAL CANAL/NEURAL FORAMINA: C2-C3: Degenerative fusion of the C2-3 level. No stenosis. C3-C4: Mild degenerative disc disease. No stenosis. C4-C5: Mild degenerative disc disease. No stenosis. C5-C6: Degenerative fusion of the C5-6 level. Posterior osteophyte causes mild spinal stenosis measuring 9 mm. C6-C7: Mild degenerative disc disease. No stenosis. C7-T1: Mild degenerative disc disease. No stenosis. IMPRESSION: Mild to moderate multilevel degenerative disc disease and facet arthrosis throughout the cervical spine. There is straightening of the normal cervical curvature suggesting spasm. No acute fracture or subluxation is seen. Electronically signed by: Bruno Payne MD 05/23/24 21:02 PM Chest X-Ray 05/23/24 19:12 Exam(s): XR CXR 1 VIEW EXAM: XR Chest, 1 View CLINICAL HISTORY: Reason for exam: Sepsis. TECHNIQUE: Frontal view of the chest. COMPARISON: February 18, 2024 FINDINGS: Lungs: Central vascular congestion. Possible mild edema. No focal consolidation is seen. Pleural space: Unremarkable. No pneumothorax. Heart: Unremarkable. No cardiomegaly. Mediastinum: Unremarkable. Normal mediastinal contour. 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 No acute fracture. Tubes, lines and devices: There is a pacemaker on the left with leads going to the right side of the heart. The cardiac silhouette is mildly enlarged. Upper abdomen: There is no pneumoperitoneum under the diaphragm. IMPRESSION: 1. There is a pacemaker on the left with leads going to the right side of the heart. The cardiac silhouette is mildly enlarged. 2. Central vascular congestion. Possible mild edema. No focal consolidation is seen. Electronically signed by: Bruno Payne MD 05/23/24 20:[address] 05/23/24 19:12 Exam(s): CT HEAD Without Contrast EXAM: CT Head Without Intravenous Contrast CLINICAL HISTORY: Reason for exam: fall on warfarin. TECHNIQUE: Axial computed tomography images of the head/brain without intravenous contrast. CTDI is 38.49 mGy and DLP is 624.41 mGy-cm. Automated exposure control was utilized for the study. A dose lowering technique was utilized adhering to the principles of ALARA. COMPARISON: No relevant prior studies available. FINDINGS: Brain: Unremarkable. No hemorrhage. No significant white matter disease. No edema. Ventricles: Unremarkable. No ventriculomegaly. Bones/joints: Unremarkable. No acute fracture. Soft tissues: Unremarkable. Sinuses: Signs of previous sinus surgery involving the ethmoid air cells. No mucosal thickening or gas/fluid levels are seen. Mastoid air cells: Unremarkable as visualized. No mastoid effusion. IMPRESSION: Unremarkable appearance of the brain. No intracranial hemorrhage or infarct is identified. No acute traumatic findings are seen. Electronically signed by: Bruno Payne MD 05/23/24 20:50 PM Discharge Plan Visit Data Chief Complaint: Fall Stated Complaint: INJURY ALERT, FALL ED Provider: Davon Chen Discharge Problem: Atrial fibrillation with RVR, Cellulitis of left lower leg Patient Disposition: Admitted As Inpatient Discharge Instructions Interventions: ED Discharge Assessment Last Done: 05/24/24 01:49 Forms Stand Alone Forms: [facility] [employer] Prescriptions Prescriptions: No Action atorvastatin 80 mg tablet 80 mg PO DAILY Hold Instructions: Resume on 03/23/24. Hold till completion of antiboitics acetaminophen [Tylenol] 325 mg Tablet 650 mg PO QID PRN (Reason: Pain) aspirin 81 mg Tablet,Delayed Release (Dr/Ec) 81 mg PO DAILY ergocalciferol (vitamin D2) 50,000 unit Tablet 50,000 unit PO WK Rx Instructions: on thursday levothyroxine 88 mcg Tablet 88 mcg PO DAILY bisacodyl [Dulcolax (bisacodyl)] 10 mg Suppository 10 mg NV DAILY PRN (Reason: Constipation) hyoscyamine sulfate 0.125 mg Tablet 0.125 mg PO Q4H PRN (Reason: Abdominal Pain) ferrous sulfate 325 mg (65 mg iron) Tablet 325 mg PO BID Januvia 50 mg Tablet 50 mg PO DAILY Lantus Solostar U-100 Insulin 40 units 40 units SC BID metolazone 2.5 mg tablet 2.5 mg PO UD Hold Instructions: Resume on 02/23/24. Rx Instructions: metolazone 2.5mg one tab on thu, thu and thursday potassium chloride 20 mEq tablet,ER particles/crystals 20 meq PO BID insulin aspart U-100 [Novolog U-100 Insulin aspart] 100 unit/mL Solution 10 unit SUBCUT AC metoprolol tartrate 50 mg Tablet 50 mg PO TID omeprazole 20 mg capsule,delayed release(DR/EC) 20 mg PO DAILY multivitamin,[id number]-[id number]-FA-min Tablet 1 tab PO DAILY pregabalin 50 mg capsule 50 mg PO BID oxycodone 10 mg tablet 20 mg PO Q4H PRN (Reason: Pain, Severe) nystatin 100,000 unit 1 applic EXT UD Rx Instructions: nystatin powder to abdominal fold bid sennosides-docusate sodium [Senna-S] 8.6-50 mg Tablet 2 tab-cap PO HS spironolactone 25 mg tablet 25 mg PO DAILY warfarin 3 mg Tablet 3 mg PO DAILY triamcinolone acetonide 0.1 % Lotion 1 applic TOPICAL TID torsemide 60 mg 60 mg PO DAILY Hold Instructions: Resume on 02/22/24. Referrals Referrals: PCP,NO [Physician] -
[2024-05-23 19:38] LABS: Basophils # (auto) 0.06 K/uL (0.00-0.20); Basophils % (auto) 0.8 %; Eosinophils # (auto) 0.09 K/uL (0.00-0.50); Eosinophils % (auto) 1.2 %; Hematocrit (blood only) 34.1 % (42.0-52.0); Hemoglobin 10.7 g/dl (14.0-18.0); Immature Granulocytes # (auto) 0.04 K/uL (0.01-0.20); Immature Granulocytes % (auto) 0.5 %; Lymphocytes # (auto) 0.53 K/uL (1.20-3.40); Lymphocytes % (auto) 6.8 %; Mean Corpuscular Hemoglobin 26.6 pg (25.0-34.0); Mean Corpuscular Hgb Conc 31.4 g/dL (32.0-36.0); Mean Corpuscular Volume 84.6 fL (80.0-100.0); Mean Platelet Volume 9.5 fL (9.4-12.4); Monocytes # (auto) 0.97 K/uL (0.11-0.59); Monocytes % (auto) 12.5 %; Neutrophils # (auto) 6.07 K/uL (1.40-6.50); Neutrophils % (auto) 78.2 %; Platelet Count 326 K/uL (130-400); RDW Coefficient of Variation 19.6 % (11.5-14.5); RDW Standard Deviation 59.4 fL (36.4-46.3); Red Blood Count 4.03 M/uL (4.70-6.10); White Blood Count 7.76 K/ul (4.8-10.8)
[2024-05-23 19:47] LABS: Albumin Level 2.7 gm/dl (3.4-5.0); BUN Creatinine Ratio 14.5 (10-20); Bilirubin Direct 0.8 mg/dl (0-0.2); Bilirubin,Total 1.8 mg/dl (0.2-1.0); Calcium 8.4 mg/dl (8.6-10.3); Creatinine Clr Calc Pharmacy 63.3 ml/min; Magnesium 1.7 mg/dl (1.7-2.4); Potassium 3.6 mmol/L (3.5-5.1); Total Protein 7.8 gm/dl (6.0-8.3)
[2024-05-23] MEDS: MoRPHine SULFATE 4 MG/ML 1 ML CARP\\VIAL IV STA ×2 (19:57→23:33)
[2024-05-23] MEDS: SODIUM CHLORIDE 0.9% 1,000 ML IV SCH (19:58)
[2024-05-23] MEDS: dilTIAZem HCl 5 MG/ML 5 ML VIAL IV STA (20:26)
--- NOTE | 2024-05-23 20:46 | XRay Report ---
Exam(s): XR CXR 1 VIEW EXAM: XR Chest, 1 View CLINICAL HISTORY: Reason for exam: Sepsis. TECHNIQUE: Frontal view of the chest. COMPARISON: February 18, 2024 FINDINGS: Lungs: Central vascular congestion. Possible mild edema. No focal consolidation is seen. Pleural space: Unremarkable. No pneumothorax. Heart: Unremarkable. No cardiomegaly. Mediastinum: Unremarkable. Normal mediastinal contour. 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 No acute fracture. Tubes, lines and devices: There is a pacemaker on the left with leads going to the right side of the heart. The cardiac silhouette is mildly enlarged. Upper abdomen: There is no pneumoperitoneum under the diaphragm. IMPRESSION: 1. There is a pacemaker on the left with leads going to the right side of the heart. The cardiac silhouette is mildly enlarged. 2. Central vascular congestion. Possible mild edema. No focal consolidation is seen. Electronically signed by: Bruno Payne MD 05/23/24 20:45 PM
--- NOTE | 2024-05-23 20:51 | CT Scan Report ---
Exam(s): CT HEAD Without Contrast EXAM: CT Head Without Intravenous Contrast CLINICAL HISTORY: Reason for exam: fall on warfarin. TECHNIQUE: Axial computed tomography images of the head/brain without intravenous contrast. CTDI is 38.49 mGy and DLP is 624.41 mGy-cm. Automated exposure control was utilized for the study. A dose lowering technique was utilized adhering to the principles of ALARA. COMPARISON: No relevant prior studies available. FINDINGS: Brain: Unremarkable. No hemorrhage. No significant white matter disease. No edema. Ventricles: Unremarkable. No ventriculomegaly. Bones/joints: Unremarkable. No acute fracture. Soft tissues: Unremarkable. Sinuses: Signs of previous sinus surgery involving the ethmoid air cells. No mucosal thickening or gas/fluid levels are seen. Mastoid air cells: Unremarkable as visualized. No mastoid effusion. IMPRESSION: Unremarkable appearance of the brain. No intracranial hemorrhage or infarct is identified. No acute traumatic findings are seen. Electronically signed by: Bruno Payne MD 05/23/24 20:50 PM
[2024-05-23] MEDS: dilTIAZem HCL 125 MG in DEXTROSE 5% 100 ML IV SCH (21:03)
--- NOTE | 2024-05-23 21:03 | CT Scan Report ---
Exam(s): CT C SPINE EXAM: CT Cervical Spine Without Intravenous Contrast CLINICAL HISTORY: Reason for exam: fall on blood thinner. TECHNIQUE: Axial computed tomography images of the cervical spine without intravenous contrast. CTDI is 25.21 mGy and DLP is 558.08 mGy-cm. Automated exposure control was utilized for the study. A dose lowering technique was utilized adhering to the principles of ALARA. COMPARISON: No relevant prior studies available. FINDINGS: Vertebrae: Mild narrowing and osteophytosis at the atlantodental joint. No acute fracture. Soft tissues: Unremarkable. Vasculature: Mild calcification of the carotid bifurcation bilaterally. DISCS/SPINAL CANAL/NEURAL FORAMINA: C2-C3: Degenerative fusion of the C2-3 level. No stenosis. C3-C4: Mild degenerative disc disease. No stenosis. C4-C5: Mild degenerative disc disease. No stenosis. C5-C6: Degenerative fusion of the C5-6 level. Posterior osteophyte causes mild spinal stenosis measuring 9 mm. C6-C7: Mild degenerative disc disease. No stenosis. C7-T1: Mild degenerative disc disease. No stenosis. IMPRESSION: Mild to moderate multilevel degenerative disc disease and facet arthrosis throughout the cervical spine. There is straightening of the normal cervical curvature suggesting spasm. No acute fracture or subluxation is seen. Electronically signed by: Bruno Payne MD 05/23/24 21:02 PM
[2024-05-23 21:42] LABS: INR 4.3 (0.9-1.1); Partial Thromboplastin Ratio 1.6; Partial Thromboplastin Time 42 Seconds (21-31); Prothrombin Time 40.8 Seconds (9.0-12.0)
[2024-05-23] MEDS: STAT IV Infusion **Titration per Protocol STA (22:29)
[2024-05-23 22:50] LABS: C Reactive Protein 11.86 mg/dl (0-0.5)
[2024-05-23] MEDS ORDERED: VANCOMYCIN CONSULT ACTIVE PRN (23:08)
[2024-05-23] MEDS: cefTRIAXone SODIUM 2,000 MG/50 ML BAG IV STA (23:28)
[2024-05-24] MEDS: VANCOMYCIN HCL 2,750 MG in SODIUM CHLORIDE 0.9% 500 ML IV ONE (00:23)
[2024-05-24] MEDS: MAGNESIUM SULFATE / D5W 1 GM/100 ML BAG IV SCH (00:27)
[2024-05-24] MEDS: ALBUMIN 25% 25 GM/100 ML VIAL IV ONE (00:32)
[2024-05-24] MEDS ORDERED: PHARMACY GLYCEMIC MGMT CONSULT PRN (00:49)
--- NOTE | 2024-05-24 00:50 | History & Physical Report ---
Date of Service May 24, 2024 Assessment & Plan (1) Atrial fibrillation with RVR: Plan: Rapid A-fib secondary to fall, possible sepsis from LLE cellulitis, past history of osteomyelitis status post left BKA, rule out abscess/osteomyelitis, procalcitonin on blood work; INR slightly supratherapeutic ARF on CKD secondary to illness chronic systolic heart failure, EF 35%, TTE 2023) sp ICD, equivocal volume status, given mild congestion on imaging and ARF on CKD hx CAD hx VT status post ablation hypertension, BP stable hyperlipidemia, on statin Rx pulmonary hypertension/OHS on BiPAP as per records bronchial asthma, not in acute exacerbation DM2 on insulin pump, suboptimal control as of recent hemoglobin A1c of 8.1 this month hypothyroidism, TSH slightly elevated with normal free T4 chronic anemia, hemoglobin at baseline hx RLE osteomyelitis status post recent surgery, no issues as per patient Possible functional disability PCU Facilitate home beta-noy and wean off Cardizem infusion Monitor creatinine response to IV albumin Hold home diuretics for now until creatinine back to baseline CS, doxycycline and cefepime CT LLE stump Further management contingent on CT results Pharmacy glycemic control consult PT OT eval once medically stable DVT prophylaxis Coumadin INR goal between 2 and 3 if no concerns on CT imaging Full code Patient would like daughter to be given updates regarding care. Ms. Mendiolamemo Valdo, contact #[phone]. Text document was generated using [employer] voice recognition software. It may contain grammatical or spelling errors. Kindly contact undersigned for clarification of any documentation item in question. History of Present Illness Chief Complaint: Fall, left leg stump pain/swelling Primary Care Provider: Sherry Maya DO History obtained from patient and records. Medical history significant for chronic systolic heart failure, EF 35%, TTE 2023) sp ICD, history CAD, hx VT status post ablation, A-fib/DVT on Coumadin, hypertension, hyperlipidemia, pulmonary hypertension/OHS on BiPAP as per records , bronchial asthma, DM2 on insulin pump, hypothyroidism, CRI (baseline creatinine 1.2- 1.3), chronic anemia (baseline hemoglobin 10), mood disorder, RLE osteomyelitis status post surgery, left foot osteomyelitis status post left BKA, morbid obesity. Last [facility] confinement January 2024 for RLE osteomyelitis status post surgery. Recent confinement 2 weeks ago at [place] for sepsis secondary to worsening RLE osteomyelitis wound infection status post surgery. Patient transferred from [facility] ER. Polymicrobial growth on CS. Patient underwent wound debridement, right foot abscess drainage, 3 compartment fasciotomy. Patient told he did not need antibiotics when he was discharged home last week. Patient noted worsening redness on left leg amputation stump over the last month. Pain going to the left buttock as per patient. Possible itchy rash as per patient. Denies fever, chills. Last night, patient got tangled up in blankets causing him to fall out of his wheelchair. Denies head trauma, LOC, syncope, chest pain or unusual SOB. EMS called to patient's home. Patient noted to be in rapid A-fib upon arrival at the ER. IV Cardizem infusion initiated at the ER. Vancomycin and ceftriaxone administered at the ER. MEDICAL HISTORY: As above. SURGICAL HISTORY: Left shoulder surgery, ICD, tonsillectomy/adenoidectomy, left BKA surgery, vascular device placement, right foot wound debridement, vascular procedures FAMILY HISTORY: There is a family history of heart disease and hypertension. PERSONAL SOCIAL HISTORY: Nonsmoker. No chronic intake of alcoholic beverages. 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 Allergies Allergy/AdvReac Type Severity Reaction Status Date / Time benzonatate AdvReac Intermediate choking, Verified 01/07/24 13:17 gagging Home Medications Medication Instructions Recorded Confirmed Type Lantus Solostar U-100 Insulin 40 units SC BID 02/08/24 02/09/24 History acetaminophen 325 mg tablet 650 mg PO QID PRN Pain 02/08/24 05/24/24 History (Tylenol) aspirin 81 mg tablet,delayed 81 mg PO DAILY 02/08/24 05/24/24 History release atorvastatin 80 mg tablet 80 mg PO DAILY 02/08/24 05/24/24 History ergocalciferol (vitamin D2) 50,000 50,000 unit PO WK 02/08/24 05/24/24 History unit tablet ferrous sulfate 325 mg (65 mg 325 mg PO BID 02/08/24 05/24/24 History iron) tablet hyoscyamine sulfate 0.125 mg tablet 0.125 mg PO Q4H PRN Abdominal Pain 02/08/24 05/24/24 History insulin aspart U-100 100 unit/mL 10 unit subcut AC 02/08/24 02/09/24 History subcutaneous solution (Novolog U-100 Insulin aspart) levothyroxine 88 mcg tablet 88 mcg PO DAILY 02/08/24 05/24/24 History metoprolol tartrate 50 mg tablet 50 mg PO BID 02/08/24 05/24/24 History multivitamin,pv-djmk-[id number]-FA-min 1 tab PO DAILY 02/08/24 02/09/24 History nystatin 1 applic EXT UD 02/08/24 05/24/24 History omeprazole 20 mg capsule,delayed 20 mg PO DAILY 02/08/24 05/24/24 History release oxycodone 10 mg tablet 10 mg PO Q4H PRN Pain, Severe 02/08/24 05/24/24 History potassium chloride 20 mEq 20 meq PO BID 02/08/24 05/24/24 History tablet,extended release(part/cryst) pregabalin 50 mg capsule 50 mg PO BID 02/08/24 05/24/24 History sitagliptin phosphate 50 mg tablet 50 mg PO DAILY 02/08/24 05/24/24 History (Januvia) spironolactone 25 mg tablet 25 mg PO DAILY 02/09/24 05/24/24 History triamcinolone acetonide 0.1 % 1 applic topical TID 02/09/24 05/24/24 History lotion warfarin 3 mg tablet 3 mg PO DAILY 02/09/24 05/24/24 History ammonium lactate 12 % lotion 1 applic topical DAILY 05/24/24 05/24/24 History betamethasone dipropionate 0.05 % 1 applic topical BID 05/24/24 05/24/24 History topical cream loratadine 10 mg tablet 10 mg PO DAILY 05/24/24 05/24/24 History torsemide 20 mg tablet 20 mg PO BID 05/24/24 05/24/24 History Past Med/Surg History Problem List (Updated 05/24/24 @ 02:13 by Davon Chen DO) Cellulitis of left lower leg (Acute) Atrial fibrillation with RVR (Acute) Wound, open, foot with complication (Acute) History of ventricular tachycardia Persistent atrial fibrillation 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 Leg wound, right Cellulitis of right leg (Acute) PVD (peripheral vascular disease) (Acute) Infected abrasion of right leg Morbid obesity H/O osteomyelitis CKD (chronic kidney disease) stage 3, GFR 30-59 ml/min (Chronic) Asthma (Chronic) NINA on CPAP (Chronic) Ischemic cardiomyopathy (Chronic) Hypothyroidism (Chronic) History of diabetic ulcer of foot (Chronic) Cardiac defibrillator in situ (Chronic) 2007 with replacement 03/2020. follows with Dr. Maya. 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) (Chronic) Peripheral arterial disease (Chronic) History of COVID-19 (Chronic) History of amputation of left foot (Chronic) Adjustment disorder with mixed disturbance of emotions and conduct MDD (major depressive disorder), recurrent episode, mild Medical History (Updated 05/24/24 @ 02:13 by Davon Chen DO) Osteomyelitis of foot, right, acute Adult failure to thrive Diabetes Acute on chronic combined systolic and diastolic CHF (congestive heart failure) Depression with suicidal ideation Acute osteomyelitis of left foot T2DM (type 2 diabetes mellitus) CHF (congestive heart failure) Acute on chronic combined systolic (congestive) and diastolic (congestive) heart failure Diabetic ulcer of right foot Sustained ventricular tachycardia Pneumonia due to COVID-19 virus SARS-CoV-2 positive Sepsis Cellulitis of left lower leg Diabetic ulcer of left heel associated with diabetes mellitus due to underlying condition, limited to breakdown of skin Acute on chronic renal failure Acute hypoxemic respiratory failure Sleep apnea BIPAP Rectal bleeding Depression Deformity of foot Adams fracture Base of left fifth metatarsal, nonhealing x years Diabetic ulcer of left foot associated with type 2 diabetes mellitus, with fat layer exposed Hx of sepsis 06/2019 Arthritis Venous stasis ulcer of right lower leg with edema of right lower leg Hypokalemia Bacteremia due to group B Streptococcus Lymphedema Sustained VT (ventricular tachycardia) GERD (gastroesophageal reflux disease) Hx of osteomyelitis Hx of myocardial infarction found on testing Asthma well controlled, daily [facility] 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 CKD (chronic kidney disease) stage 3, GFR 30-59 ml/min Surgical History History of esophagogastroduodenoscopy (EGD) H/O foot surgery LEFT FOOT ULCER DEBRIDEMENT H/O cardiac radiofrequency ablation OCTOBER 2019 ([facility]) AT [facility] History of cardiac cath V. tach -- no stent. 06/2019. unsure where it was done History of sinus surgery Hx of tonsillectomy History of colonoscopy Hx of amputation of lesser toe H/O shoulder surgery left Family History Sister Family history of diabetes mellitus 2 Grandmother (Maternal) Family history of diabetes mellitus Grandfather (Maternal) Family history of diabetes mellitus Father Cancer Mother Cancer Other No family history of adverse response to anesthesia Social History Smoking Status: Never smoker Second Hand Exposure: No; Do You Dip or Chew Tobacco: No; Tobacco Cessation Education Requested by Patient: No Hx Alcohol Use: No Hx Substance Use: No Preferred Language: Korean Communication Ability: Effective Community Service Coordinator Required: No Beliefs That Will Affect Care: None marital status: Current Living Situation: Alone current occupational status: disabled How many Children do You have: 3 Other Information That Helps Us Care for You: No Feels Safe at Home: Yes Safety Concerns: Feels Safe At This Time Assistive Devices: BiPap, Glasses, Prosthesis and Wheelchair Review of Systems Review of Systems: As per HPI, all other systems reviewed and negative Physical Exam Physical Exam: GENERAL: uncomfortable, morbidly obese, unkempt, respiratory distress SKIN: Pallor, warm HEENT: [place] palpebral conjunctivae, no ptosis, dry buccal mucosa NECK : Supple, short neck, no tenderness CHEST : Decreased breath sounds, no tenderness HEART : Irregular, diminished S1-S2 ABDOMEN: distention, no tenderness EXTREMITIES : Dressing over RLE, left amputation stump induration with tendern ess with superficial maculopapular lesions NEUROLOGIC : Coherent, no facial asymmetry, no other gross focality Results & Data Results & Data Vital Signs (Past 12 Hours) Vital Signs Temp Pulse Pulse Resp BP BP Pulse Ox 05/23/24 23:45 99 H 18 124/67 05/23/24 23:30 98 H 20 113/58 L 96 05/23/24 23:16 108 H 16 109/58 L 97 05/23/24 23:00 90 16 104/75 97 05/23/24 22:46 80 05/23/24 22:45 104/72 05/23/24 22:36 85 16 97 05/23/24 22:31 88 18 110/91 98 05/23/24 22:21 98 H 21 101/56 L 98 05/23/24 22:10 94/68 L 05/23/24 21:45 114/64 05/23/24 21:02 105 H 22 131/64 95 05/23/24 20:25 95 H 13 105/76 96 05/23/24 19:59 117 H 17 97 05/23/24 19:59 106 H 22 125/72 95 05/23/24 18:51 116 H 05/23/24 18:25 36.8 C 112 H 20 128/45 L 97 O2 Del Method O2 Flow Rate 05/23/24 23:45 05/23/24 23:30 05/23/24 23:16 05/23/24 23:00 05/23/24 22:46 05/23/24 22:45 05/23/24 22:36 05/23/24 22:31 Nasal Cannula 2 05/23/24 22:21 05/23/24 22:10 05/23/24 21:45 05/23/24 21:02 Nasal Cannula 2 05/23/24 20:25 Room Air 05/23/24 19:59 Room Air 05/23/24 19:59 Room Air 05/23/24 18:51 05/23/24 18:25 Room Air Laboratory Results Laboratory Results WBC 7.76 K/ul (4.8-10.8) 05/23/24 18:44 RBC 4.03 M/uL (4.70-6.10) L 05/23/24 18:44 Hgb 10.7 g/dl (14.0-18.0) L 05/23/24 18:44 POC Hgb 11.2 g/dl (14.0-18.0) L 05/23/24 18:52 Hct 34.1 % (42.0-52.0) L 05/23/24 18:44 POC Hct 33 % (42-52) L 05/23/24 18:52 MCV 84.6 fL (80.0-100.0) 05/23/24 18:44 MCH 26.6 pg (25.0-34.0) 05/23/24 18:44 MCHC 31.4 g/dL (32.0-36.0) L 05/23/24 18:44 RDW Std Deviation 59.4 fL (36.4-46.3) H 05/23/24 18:44 RDW Coeff of Мария 19.6 % (11.5-14.5) H 05/23/24 18:44 Plt Count 326 K/uL (130-400) 05/23/24 18:44 MPV 9.5 fL (9.4-12.4) 05/23/24 18:44 Immature Gran % (Auto) 0.5 % 05/23/24 18:44 Neut % (Auto) 78.2 % 05/23/24 18:44 Lymph % (Auto) 6.8 % 05/23/24 18:44 [place] % (Auto) 12.5 % 05/23/24 18:44 Eos % (Auto) 1.2 % 05/23/24 18:44 Baso % (Auto) 0.8 % 05/23/24 18:44 Neut # (Auto) 6.07 K/uL (1.40-6.50) 05/23/24 18:44 Lymph # (Auto) 0.53 K/uL (1.20-3.40) L 05/23/24 18:44 [place] # (Auto) 0.97 K/uL (0.11-0.59) H 05/23/24 18:44 Eos # (Auto) 0.09 K/uL (0.00-0.50) 05/23/24 18:44 Baso # (Auto) 0.06 K/uL (0.00-0.20) 05/23/24 18:44 Immature Gran # (Auto) 0.04 K/uL (0.01-0.20) 05/23/24 18:44 ESR > 130 mm/hr (0-20) H 05/23/24 18:44 PT 40.8 Seconds (9.0-12.0) H 05/23/24 20:43 INR 4.3 (0.9-1.1) H 05/23/24 20:43 APTT 42 Seconds (21-31) H 05/23/24 20:43 PTT Ratio 1.6 05/23/24 20:43 POC Sodium 139 mmol/L (135-144) 05/23/24 18:52 Sodium 137 mmol/L (136-145) 05/23/24 18:44 POC Potassium 4.2 mmol/L (3.3-5.0) 05/23/24 18:52 Potassium 3.6 mmol/L (3.5-5.1) 05/23/24 18:44 POC Chloride 101 mmol/L (101-112) 05/23/24 18:52 Chloride 99 mmol/L (98-107) 05/23/24 18:44 Carbon Dioxide 25 mmol/L (21-32) 05/23/24 18:44 POC Total CO2 27 mmol/L (24-31) 05/23/24 18:52 Anion Gap 13 (3-11) H 05/23/24 18:44 POC Anion Gap 16.0 mmol/L (16-25) 05/23/24 18:52 POC BUN 31 mg/dl (7-18) H 05/23/24 18:52 BUN 28 mg/dl (6-23) H 05/23/24 18:44 Creatinine 1.93 mg/dl (0.6-1.4) H 05/23/24 18:44 POC Creatinine 2.0 mg/dl (0.6-1.3) H 05/23/24 18:52 Est Cr Clr Drug Dosing 63.3 ml/min 05/23/24 18:44 eGFR 39.14 05/23/24 18:44 BUN/Creatinine Ratio 14.5 (10-20) 05/23/24 18:44 Glucose 104 mg/dl (70-99(Fasting)) H 05/23/24 18:44 POC Glucose (other) 108 mg/dl (70-99) H 05/23/24 18:52 Lactate 1.8 mmol/L (0.4-2.0) 05/23/24 19:53 Calcium 8.4 mg/dl (8.6-10.3) L 05/23/24 18:44 POC Ioniz Calcium Homa 1.00 mmol/l (1.12-1.32) L 05/23/24 18:52 Magnesium 1.7 mg/dl (1.7-2.4) 05/23/24 18:44 Total Bilirubin 1.8 mg/dl (0.2-1.0) H 05/23/24 18:44 Direct Bilirubin 0.8 mg/dl (0-0.2) H 05/23/24 18:44 AST 22 U/L (13-39) 05/23/24 18:44 ALT 6 U/L (7-52) L 05/23/24 18:44 Alkaline Phosphatase 83 U/L (34-104) 05/23/24 18:44 Troponin I High Sens 13.0 pg/ml (0-20) 05/23/24 18:44 C-Reactive Protein 11.86 mg/dl (0-0.5) H 05/23/24 18:44 B-Natriuretic Peptide 110 pg/ml (0-100) H 05/23/24 18:44 Total Protein 7.8 gm/dl (6.0-8.3) 05/23/24 18:44 Albumin 2.7 gm/dl (3.4-5.0) L 05/23/24 18:44 Procalcitonin 0.67 ng/ml (0-0.5) H 05/23/24 18:[address] 05/23/24 19:12 Exam(s): CT C SPINE EXAM: CT Cervical Spine Without Intravenous Contrast CLINICAL HISTORY: Reason for exam: fall on blood thinner. TECHNIQUE: Axial computed tomography images of the cervical spine without intravenous contrast. CTDI is 25.21 mGy and DLP is 558.08 mGy-cm. Automated exposure control was utilized for the study. A dose lowering technique was utilized adhering to the principles of ALARA. COMPARISON: No relevant prior studies available. FINDINGS: Vertebrae: Mild narrowing and osteophytosis at the atlantodental joint. No acute fracture. Soft tissues: Unremarkable. Vasculature: Mild calcification of the carotid bifurcation bilaterally. DISCS/SPINAL CANAL/NEURAL FORAMINA: C2-C3: Degenerative fusion of the C2-3 level. No stenosis. C3-C4: Mild degenerative disc disease. No stenosis. C4-C5: Mild degenerative disc disease. No stenosis. C5-C6: Degenerative fusion of the C5-6 level. Posterior osteophyte causes mild spinal stenosis measuring 9 mm. C6-C7: Mild degenerative disc disease. No stenosis. C7-T1: Mild degenerative disc disease. No stenosis. IMPRESSION: Mild to moderate multilevel degenerative disc disease and facet arthrosis throughout the cervical spine. There is straightening of the normal cervical curvature suggesting spasm. No acute fracture or subluxation is seen. Electronically signed by: Bruno Payne MD 05/23/24 21:02 PM Chest X-Ray 05/23/24 19:12 Exam(s): XR CXR 1 VIEW EXAM: XR Chest, 1 View CLINICAL HISTORY: Reason for exam: Sepsis. TECHNIQUE: Frontal view of the chest. COMPARISON: February 18, 2024 FINDINGS: Lungs: Central vascular congestion. Possible mild edema. No focal consolidation is seen. Pleural space: Unremarkable. No pneumothorax. Heart: Unremarkable. No cardiomegaly. Mediastinum: Unremarkable. Normal mediastinal contour. 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 No acute fracture. Tubes, lines and devices: There is a pacemaker on the left with leads going to the right side of the heart. The cardiac silhouette is mildly enlarged. Upper abdomen: There is no pneumoperitoneum under the diaphragm. IMPRESSION: 1. There is a pacemaker on the left with leads going to the right side of the heart. The cardiac silhouette is mildly enlarged. 2. Central vascular congestion. Possible mild edema. No focal consolidation is seen. Electronically signed by: Bruno Payne MD 05/23/24 20:[address] 05/23/24 19:12 Exam(s): CT HEAD Without Contrast EXAM: CT Head Without Intravenous Contrast CLINICAL HISTORY: Reason for exam: fall on warfarin. TECHNIQUE: Axial computed tomography images of the head/brain without intravenous contrast. CTDI is 38.49 mGy and DLP is 624.41 mGy-cm. Automated exposure control was utilized for the study. A dose lowering technique was utilized adhering to the principles of ALARA. COMPARISON: No relevant prior studies available. FINDINGS: Brain: Unremarkable. No hemorrhage. No significant white matter disease. No edema. Ventricles: Unremarkable. No ventriculomegaly. Bones/joints: Unremarkable. No acute fracture. Soft tissues: Unremarkable. Sinuses: Signs of previous sinus surgery involving the ethmoid air cells. No mucosal thickening or gas/fluid levels are seen. Mastoid air cells: Unremarkable as visualized. No mastoid effusion. IMPRESSION: Unremarkable appearance of the brain. No intracranial hemorrhage or infarct is identified. No acute traumatic findings are seen. Electronically signed by: Bruno Payne MD 05/23/24 20:50 PM Diagnostic Findings EKG as per my interpretation :Rate 90, A-fib, LAD, LAFB, T wave abnormalities lateral leads
[2024-05-24 01:09] LABS: Thyroid Stimulating Hormone 6.188 uIu/ml (0.300-4.500)
[2024-05-24] MEDS: oxyCODONE HCL IR 5 MG TAB (IMMEDIATE RELEASE) PO STA (01:11)
[2024-05-24] MEDS: LORATADINE 10 MG TAB PO ONE (01:11)
[2024-05-24 01:45] LABS: T4 Free Thyroxine 1.26 ng/dl (0.61-1.60)
[2024-05-24] MEDS: HYDROmorphone INJ 1 MG/ML SYRINGE IV PRN (02:42)
[2024-05-24 02:49] LABS: Appearance Urine Clear (Clear); Bacteria Urine Automated None Seen (None Seen); Bilirubin Urine 1+ (Negative); Blood Urine Negative (Negative); Color Urine Dark Yellow; Epithelial Cell Urine Auto 0-2 /hpf (0-2); Glucose Urine UA 1+ (Negative); Ketones Urine Trace (Negative); Leukocyte Esterase Urine Negative (Negative); Mucus Urine Present (None Prsent); Nitrite Urine Negative (Negative); Protein Urine 2+ (Negative); RBC Urine Automated 0-2 /hpf (0-2); Specific Gravity Urine 1.016 (1.000-1.030); Urobilinogen Urine Negative (Negative); WBC Urine Automated 0-5 /hpf (0-5)
[2024-05-24] MEDS: NYSTATIN POWDER 15GM BTL EXT SCH (03:16)
[2024-05-24] MEDS: METOPROLOL TARTRATE 25 MG TAB PO STA (03:17)
--- NOTE | 2024-05-24 03:20 | CT Scan Report ---
EXAM: CT femur LT wo con CLINICAL HISTORY: Pain/swelling, coumadin. TECHNIQUE: Thin axial images of the left femur were obtained along with coronal and sagittal reconstructions without contrast. One of the following dose-reduction techniques was utilized for this exam. Automated exposure control, adjustment of the mA and/or kV according to patient size, and use of iterative reconstruction. DLP: 1586.5 mGy-cm, CTDI: 27.4 mGy. COMPARISON: None. FINDINGS: The visualized bones appear normal. Soft tissue thickening of the visualized leg with subcutaneous fat stranding. Multiple enthesophytes are noted. Well-corticated calcification is noted adjacent to the anterior acetabulum, which could be enthesophyte. Small lytic calcifications at the anterior aspect of the femoral head and neck, could represent synovial pits. Vascular calcifications are noted. Narrowing of the hip joint space with subchondral sclerosis and marginal osteophytes. IMPRESSION: 1. Multiple enthesophytes. 2. Diffuse soft tissue edema and fat stranding of the visualized left lower limb. 3. Linear calcification noted adjacent to the anterior acetabulum, could represent enthesophyte. Clinical correlation is advised to assess for an indeterminate age avulsion fracture. 4. Otherwise, No acute displaced fractures or dislocations. Electronically signed by Chelsea Ayers 05-24-2024 03:20 AM
[2024-05-24] MEDS ORDERED: GLUCAGON FOR INJ 1 MG VIAL SQ PRN (03:30)
[2024-05-24] MEDS ORDERED: DEXTROSE 50% 50 ML SYRINGE IV PRN (03:30)
[2024-05-24] MEDS ORDERED: GLUCOSE 40% GEL 15 GM TUBE PO PRN (03:30)
[2024-05-24] MEDS ORDERED: GLUCOSE 10 TAB/TUBE PO PRN (03:30)
--- OUTSIDE RECORDS SUMMARY | 2024-05-24 05:12 | External Medical Summary | Summary of Care ---
Author Name Unknown Organization [facility] Address [address] [facility] [place] [address] Phone [phone] Care Team Providers Care Scissors Sharpener Name Role Phone Sherry Maya DO Primary Care Provider [phone] Reason for Visit * Reason Comments Dosage Adjustment Via Phone (anticoag Cl inic) Encounter Details Date Type Department Care Team (Late st Contact Info) Description 05/13/2024 6:45 AM EST Anticoagulation [facility], Renee Wise [address] [place] [address] [place] [address] [facility], [address] [place] [address] Anticoagulation management encounter* Allergies Active Allergy Reactions Criticality Noted Date Comments Benzonatate 12/08/2016 choking Keyanna Pedraza Other (Please comment) High 04/10/20 09 Choking documented as of this encounter (statuses as of 05/13/2024) Medications ONETOUCH LANCETS MISCIndications:DM type 2, not at goal ([facility]) 3 Box Dosing Unit 1 04/17/20 15 Active Nitroglycerin 0.4 MG Sublingual Tablet Sublingual Place under the tongue every 5 minutes as needed. Up to 3 in 15 minutes. 25 Tab 11 04/17/20 15 Active Magnesium Oxide 400 MG CapsuleIndications:H eart failure, systolic, due to CAD (HCC),Automatic implantable cardioverter-defibri llator in situ,Chronic ischemic heart disease,Ischemic cardiomyopathy Take 1 Cap by mouth daily. 30 Cap 5 03/16/20 17 Active Glucose Blood (Pro-Cure TherapeuticsTOUCH VERIO) STRP USE TO TEST BLOOD GLUCOSE 8 TIMES A DAY 800 Strip 3 03/18/20 19 Active Insulin Aspart 100 UNIT/ML Injection Solution Inject under the skin. FOR USE IN PUMP Active SportlobsterTouch Verio Flex System w/Device Kit Use as directed. 01/26 Active Diclofenac Sodium 1 % External Gel (Voltaren)Indication s:Hand arthritis Apply topically to affected area daily. Apply to hands 100 g 05/31/19 Active polyethylene glycol 3350 119 gram PO POWD Take 119 g by mouth daily as needed for Constipation. May use up to 2-3 times per day as needed. 08/10/19 Active BiPAP every night at bedtime. Active WalkerIndications:Os teomyelitis of foot, left, acute (HCC),Diabetic polyneuropathy associated with diabetes mellitus due to underlying condition (HCC),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),Right knee pain, unspecified chronicity,Heart failure, systolic, due to CAD ([facility]) Bariatric heavy duty walker- 2 wheels- please document patient's weight at 308 1 Each 02/08/20 Active DIURETIC TITRATION PLANIndications:Hear t failure, systolic, due to CAD ([facility]) If no improvement on day 3, contact heart failure managing provider. 1 Each 03/11/20 Active Loratadine 10 MG Oral Tablet (Claritin) Take 1 Tablet by mouth daily. 100 Tablet 3 04/12/20 Active Metoprolol Succinate ER 25 MG Oral Tablet Extended Release 24 Hour (Toprol XL) Take 1 Tablet by mouth 2 times a day. 200 Tablet 3 04/12/20 Active Additional Information Patient not taking.Reported on 02/29/2024 Albuterol Sulfate 108 (90 Base) MCG/ACT Inhalation Aerosol Powder Breath ActivatedIndications :Asthma in remission Inhale 2 Puffs by mouth 4 times a day as needed for Wheezing. 3 Each 3 04/12/20 Active Aspirin 81 MG Oral Tablet ChewableIndications: Dyslipidemia, goal LDL below 100,DM type 2, not at goal (HCC),Diabetic polyneuropathy associated with type 1 diabetes mellitus (HCC),HTN, goal below 130/80,Abnormal electrocardiogram Take 1 Tablet by mouth daily. With food. 100 Tablet 5 04/12/20 Active Acetaminophen 325 MG Oral Tablet (Tylenol) Take 2 Tablets by mouth as needed (for mild to moderate reaction (infusion reaction protocol)). 2 Tablet 11 04/12/20 Active Meclizine HCl 12.5 MG Oral Tablet (Antivert) Take by mouth 1 Tablet as needed in the morning AND 1 Tablet as needed at noon AND 1 Tablet as needed in the evening for Dizziness. 30 Tablet 1 05/30/19 22 Active Fluticasone Propionate 50 MCG/ACT Nasal SuspensionIndication s:Otalgia, right,Dysfunction of Eustachian tube, right,Chronic rhinitis Administer into each nostril 2 Sprays in the morning. Administer 2 Sprays into each nostril daily.. 9.9 mL 10 08/06/19 22 Active Additional Information Patient not taking.Reported on 03/03/2024 Mupirocin 2 % External Ointment (Bactroban) 03/23/20 22 Active Ferrous Sulfate 325 (65 Fe) MG Oral Tablet (Feosol)Indications: Other iron deficiency anemia Take 1 Tablet by mouth in the morning and 1 Tablet before bedtime. 60 Tablet 11 09/16/19 23 Active Ammonium Lactate 12 % External Lotion (Lac-Hydrin)Indicati ons:S/P BKA (below knee amputation) unilateral, left (HCC) Apply topically to affected area as needed for Dry Skin. Apply to rash on legs 400 g 1 06/03/19 24 Active Omeprazole 20 MG Oral Capsule Delayed Release (PriLOSEC)Indication s:Heart burn Take 1 Capsule by mouth in the morning. 100 Capsule 1 06/03/19 24 Active Atorvastatin Calcium 80 MG Oral Tablet (Lipitor)Indications :Dyslipidemia, goal LDL below 100 Take 1 Tablet by mouth in the morning. 100 Tablet 3 06/19/19 24 Active Additional Information Patient not taking.Reported on 03/03/2024 metOLazone 2.5 MG Oral Tablet (Zaroxolyn) Take 1 Tablet by mouth once a day on Thursday, Thursday, and Thursday only. 90 Tablet 1 07/13/19 24 Active DULoxetine HCl 20 MG Oral Capsule Delayed Release Particles (duloxetine) Take 1 Capsule by mouth in the morning. Do not cut, crush or chew. 90 Capsule 2 07/13/19 24 Active Additional Information Patient not taking.Reported on 02/22/2024 Warfarin Sodium 2 MG Oral Tablet (Coumadin) TAKE ONE TO TWO TABLETS (2MG TO 4MG) BY MOUTH DAILY INSTRUCTED BY COUMADIN CLINIC 180 Tablet 3 08/31/19 24 Active Metoclopramide HCl 10 MG Oral Tablet (Reglan) Take 1 Tablet by mouth 3 times a day as needed for Nausea. 30 minutes before meals 30 Tablet 08/31/19 Active Additional Information Patient not taking.Reported on 03/03/2024 Metoprolol Succinate ER 50 MG Oral Tablet Extended Release 24 Hour (toPROL XL) Take 1 Tablet by mouth in the morning and 1 Tablet before bedtime. Total of 75mg twice daily. 200 Tablet 3 09/03/19 24 Active Additional Information Patient taking differently:50 mg Oral BID (.AM/PM),Taking 50 mg three times a day, Reported on 02/22/2024 Loperamide HCl 2 MG Oral Tablet (Imodium A-D) Take 1 Tablet by mouth 4 times a day as needed for Diarrhea. Active Spironolactone 25 MG Oral Tablet (Aldactone) Take 1 Tablet by mouth in the morning. 90 Tablet 3 10/08/19 24 Active Torsemide 20 MG Oral Tablet (Demadex)Indications :Heart failure, systolic, due to CAD (HCC),Chronic diastolic heart failure (HCC),Paroxysmal atrial fibrillation (HCC) Taking 40 mg in morning and 20 mg in afternoon 270 Tablet 3 11/04/19 24 Active Empagliflozin 10 MG Oral Tablet (Jardiance) Take 1 Tablet by mouth in the morning. 90 Tablet 3 11/05/19 24 Active Hyoscyamine Sulfate 0.125 MG Oral Tablet (Levsin)Indications: Diarrhea, unspecified type Take 1 Tablet by mouth every 4 hours as needed for Cramping. for abdominal pain 40 Tablet 2 11/30/19 24 Active Potassium Chloride Tiffanie ER 20 MEQ Oral Tablet Extended Release Take 1 Tablet by mouth in the morning and 1 Tablet before bedtime. 60 Tablet 2 03/02/20 24 Active Additional Information Patient taking differently:20 mEq Oral BID (.AM/PM),Taking 20 in morning and 40 meq in evening, Reported on 03/22/2024 DAPTOmycin 500 MG Intravenous Solution Reconstituted (Cubicin) Administer 500 mg intravenously in the morning. 02/19/20 24 Active Meropenem 1 GM Intravenous Solution Reconstituted (Merrem) Administer 1,000 mg intravenously in the morning and 1,000 mg at noon and 1,000 mg before bedtime. 02/19/20 24 Active Betamethasone Dipropionate 0.05 % External Cream (Diprosone) Apply topically to affected area 2 times a day. To affected area. 45 g 3 03/28/20 24 Active Clotrimazole 1 % External Cream (Lotrimin) Apply topically to stump area 2 times a day for 14 days. 60 g 1 5 12:23 PM EST 03/28/20 24 Active Betamethasone Dipropionate 0.05 % External Cream (Diprosone) Apply topically to affected area twice a day. 45 g 3 4 3:57 PM EST 03/29/20 24 Active Vitamin D (Ergocalciferol) 1.25 MG (75184 UT) Oral Capsule (Drisdol) TAKE ONE CAPSULE BY MOUTH EVERY WEEK 12 Capsule 04/04/20 24 Active Levothyroxine Sodium 88 MCG Oral Tablet (Levoxyl)Indications :Hypothyroidism, unspecified type TAKE 1 TABLET BY MOUTH EVERY MORNING at least 30 minutes before breakfast or other meds 100 Tablet 04/03/20 24 Active Pregabalin 50 MG Oral Capsule (Lyrica)Indications: Diabetic polyneuropathy associated with type 2 diabetes mellitus (HCC),S/P BKA (below knee amputation) unilateral, left (HCC),Leg wound, right, initial encounter Take 1 Capsule by mouth in the morning and 1 Capsule at noon and 1 Capsule before bedtime. 90 Capsule 04/04/20 24 Active Triamcinolone Acetonide 0.1 % External Lotion (Aristocort)Indicati ons:Other eczema Apply topically to affected area of dry skin on the lower legs and stump 2 times a day - avoid on open wounds. 60 mL 5 4 1:17 PM EST 04/12/20 24 Active tiZANidine HCl 4 MG Oral Tablet (Zanaflex) Take 1 Tablet by mouth every 8 hours as needed for Muscle spasms. 90 Tablet 04/22/20 24 Active oxyCODONE HCl 10 MG Oral Tablet (Roxicodone)Indicati ons:S/P BKA (below knee amputation) unilateral, left (HCC),Diabetic polyneuropathy associated with type 2 diabetes mellitus (HCC),Leg wound, right, initial encounter Take 1 Tablet by mouth every 8 hours as needed for Pain, Severe. 45 Tablet 05/05/19 25 Active documented as of this encounter (statuses as of 05/13/2024) Active Problems Problem Noted Date Diagnosed Date Osteomyelitis 05/02/2024 Ulcer of right foot with necrosis of muscle 0 07/2023 Morbid (severe) obesity due to excess calories 0 12/15/2023 Body mass index (BMI) of 50.0 to 59.9 in adult 0 11/02/2023 Overview: Per Obesity protocol - Per Obesity protocol - Per Obesity protocol - Per Obesity protocol - Per Obesity Taxonomy ICD-10 update of inactive term Other persistent atrial fibrillation 12/24/2022 Major depressive disorder, recurrent, mild 07/29 Type [...] Insulin pump status 01/11/2021 Atrial fibrillation 07/26/2020 NINA (obstructive sleep apnea) 01/31/2020 VT (ventricular tachycardia) 07/04/2019 Overview (07/04/2019): Added automatically from request for surgery [id number] 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 of right lower leg with unspecified severity 06/28/2019 Type 2 diabetes mellitus 10/26/2018 PHT (pulmonary hypertension) 04/02/2018 Insomnia 04/02/2018 History of osteomyelitis 02/11/2017 Cor pulmonale, chronic 01/05/2017 Overview (07/29/2021): Last Assessment & Plan: Moderately severe Decompensated CHF despite Bumex and Zaroxolyn Continue IV Lasix and replace KCl Needs low salt diet, restricted fluid intake and compliance with CPAP and lose weight Chronic diastolic heart failure 12/15/2016 Atherosclerosis of coronary artery 12/08/2016 Overview (07/29/2021): Last Assessment & Plan: - resume BB, [...] D deficiency 07/17/2010 Obesity hypoventilation syndrome 07/24/2009 Overview (07/16/2015): Per Obesity Taxonomy ICD-10 update of inactive term Dyslipidemia, goal LDL below 100 04/11/2009 Overview (04/11/2009): Per Lipid Taxonomy. ASTHMA, IN REMISSION 02/05/2009 Overview (03/29/2011): Per Provider Protocol. ED 12/05/2008 Testicular hypofunction 08/22/2008 Diabetic polyneuropathy 11/05/2007 DM, UNCONTROLLED, TYPE II 03/08/2001 documented as of this encounter (statuses as of 05/13/2024) Resolved Problems Problem Noted Date Diagnosed Date Resolved Date Body mass index (BMI) of 45. 0 to 49.9 in adult 07/06/2023 11/05/2023 Overview: Per Obesity protocol - Per Obesity protocol - Per Obesity protocol - Per Obesity Taxonomy ICD-10 update of inactive term Food insecurity 06/08/2023 08/06/2023 Overview: Per [facility] Protocol Body mass index (BMI) of 50. 0 to 59.9 in adult 12/02/2021 07/09/2023 Overview: Per Obesity protocol - Per Obesity protocol - Per Obesity Taxonomy ICD-10 update of inactive term Food insecurity 09/02/2021 04/09/2023 Overview: Per [facility] [...] vein of left lower extremity 07/03/2020 07/29/2021 Deep vein thrombosis (DVT) o f proximal vein of left lower extremity 06/29/2020 02/29/2024 Stage 3b chronic kidney disease 03/05/2020 07/29/2021 [...] 02/18/2018 Overview: Per [facility] Protocol Stage 3 chronic kidney disease 02/11/2017 05/02/2024 Overview: Per CKD protocol Amputated great toe of right foot 02/11/2017 11/07/2019 Body mass index (BMI) of 50. 0 to 59.9 in adult 01/26/2017 09/06/2020 Overview: Per Obesity protocol #1 - Per Obesity Taxonomy ICD-10 update of inactive term Diabetic ulcer of toe of rig ht foot associated with type 2 diabetes mellitus, limited to breakdown of skin 01/19/2017 02/18/2018 CHATO (acute kidney injury) 01/04/2017 Overview (07/29/2021): Last Assessment & Plan: Sec to Cor pulmonale and v tach-- improving --avoid nephrotoxic agents --IVF's held d/t fluid overload - will monitor closely --daily BMP Pain of right lower extremity 09/04/2016 01/19/2017 Venous ulcer of right leg 09/04/2016 Chest pain 05/08/2014 03/25/2017 Injury of foot, left 10/21/2013 017 Silent myocardial infarction 03/23/2013 11/08/2018 Accelerate Clinical Trial*[id number] 01/24/2013 05/16/2015 Overview (01/24/2013): ACCELERATE STUDY. Project # [id number], PHYSICIAN'S AIDE: Ben Hoover MD. CRC: DEBORAH Back. SUMMARY: To test the hypothesis that Evacetrapib 130 mg, in comparison to placebo, reduces the risk of major adverse coronary events in high-risk vascular disease patients. CONTACTS: During normal business hours, contact study staff at ; after hours Power Generation Engineer via the [facility] hospital trading floor operator [phone]. 24-hour Global Study Helpline: [phone]. Lipid levels should not be ordered/obtained while this subject is in the Accelerate study. Lipids are being managed in a blinded fashion. If lipid levels are inadvertently obtained, it is important that test results are NOT provided to the patient, study doctor, clinical data coordinator, or other study team members. Restricted meds while in the study: 1) niacin > 250 mg, 2) gemfibrozil with a potent [id number]. NINA on CPAP 06/28/2012 01/31/2020 Overview (06/28/2012): 06/28/12 -- CPAP 5-15 cwp 06/22/12 PSG -- AHI 21.5 [facility] HTN, goal below 140/80 12/15/201107/04 Overview: Per HTN Protocol #27. Cellulitis of right lower extremity 11/09/2009 07/29/2021 OVERWEIGHT 11/09/2009 12/23/2010 HTN, GOAL BELOW 130/80 05/23/200912/17 Overview (05/23/2009): Per HTN Taxonomy. Asthma with severity to be determined 02/05/2009 03/29/2011 Overview (08/06/2015): ICD-10 update of inactive term Overweight (BMI 25.0-29.9) 02/05/2009 0 07/24/2009 Overview (07/24/2009): Per Obesity Taxonomy Dyslipidemia, goal LDL below 160 01/05/2009 04/11/2009 Overview (04/11/2009): Per Lipid Taxonomy. Dysfunction of eustachian tube 08/31/2008 12/23/2010 Rotator cuff syndrome 04/03/20082010 Statin intolerance 09/08/2006 8 Dyslipidemia, goal to be determined 08/01/2003 03/21/2009 Overview (03/21/2009): Per Lipid Taxonomy CONVERGENC INSUFFICIENCY 06/01/2003 Esophageal reflux 03/26/2001 05/24/2012 Other chronic sinusitis 03/26/200101/26 Acute bronchitis, antibiotics not indicated 03/08/2001 08/02/2003 HTN, goal below 140/90 03/08/200105/23 Overview (05/23/2009): Per HTN Taxonomy. Encounter for long-term (cur rent) use of medications 05/22/2000 08/02/2003 Overview (02/17/2017): ICD-10 update of inactive term Type 2 diabetes mellitus wit h hemoglobin A1c goal of less than 7.0% 03/06/2000 12/23/2010 Overview (08/21/2015): ICD-10 update of inactive term Cervicalgia 09/11/1999 12/23/2010 CHRONIC SPASM OF MUSCLE, LEFT NECK 09/11/1999 12/23/2010 CHR ALLRG CONJUNCTIVITIS 09/11/1999 Allergic rhinitis 09/11/1999 12/23/2010 ELEV BL PRES W-O HYPERTN 09/11/199910/2003 documented as of this encounter (statuses as of 05/13/2024) Immunizations Name Administration Dates Next Due COVID-19 mRNA, LNP-s, No Pre serve, 2-Dose Series (Moderna) 10/04/2020,09/06/2020 COVID-19, mRNA, LNP-s, PF, B ooster, 100mcg/0.5mg (Moderna) 05/15/2021 Hepatitis B, 20+ yrs 11/16/2017,07/14/2017,05/1406/14/2017 Pneumococcal Conjugate Vacc, 13 Valent (Prevnar) 01/04/2017 Pneumococcal Polysaccharide PPV23 (Pneumovax) 09/08/2006 Seasonal Influenza Vac., MDV , IM, 0.5 mL (Fluzone) 03/15/2014,02/09/2013,01/12/2012,04/28,05/07/2010,01/05/2009,03/13/20 08 03/15/2015 Seasonal Influenza, PF, 6 M & above, IM , (FluLaval or Fluzone) 01/23/2023,02/12/2022,04/05/2021,090 04/2019,01/26/2019 Seasonal Influenza, Quadriva lent, No Preserve, IM 01/25/2018,12/10/2016,05/21/2016 TDAP (age 10 and older)(Boostrix) 12/14/2015 TDAP, Age 7 and older, IM (Adacel) 04/10/2008 Zoster Vaccine Recombinant (Shingrix) 01/17/2020 documented as of this encounter Social History Tobacco Use Types Packs/Day Years Used Date Smoking Tobacco: Never Passive Smoke Exposure: Past Smokeless Tobacco: Never Alcohol Use Standard Drinks/Week Comments Yes 0 (1 standard drink = 0.6 oz pur e alcohol) Very Seldom PHQ-2 Answer Date Recorded PHQ Adult Total Score 0 09/08/2023 Hunger Vital Sign Answer Date Recorded Within the past 12 months, y ou worried that your food would run out before you got the money to buy more. Never true 09/08/19 24 Within the past 12 months, t he food you bought just didn't last and you didn't have money to get more. Never true 09/08/2023 Childcare Answer Date Recorded Do you feel overwhelmed with taking care of a child, family member or friend? No 09/08/2023 Does your family need help f inding childcare? (Household - for ages 0-17 years) Not on file 09/08/2023 Clothing Answer Date Recorded Have you been unable to get clothing when it was really needed? No 09/08/2023 Is your family able to get c lothes or diapers when needed? (Household - for ages 0-17 years) Not on file 09/08/2023 Personal Safety Answer Date Recorded Do you feel unsafe or have concerns for your saf ety? No 09/08/2023 Do you have concerns for you r family's safety? (Household - for ages 0-17 years) Not on file 09/08/2023 Utilities Answer Date Recorded Do you have trouble paying y our heating, water, or electric bill? No 09/08/2023 Is your family able to pay t he heat, water, or electric bill? (Household - for ages 0-17 years) Not on file 09/08/2023 Does your family have access to good internet? (Household - for ages 0-17 years) Not on file 09/08/2023 Employment Status Answer Date Recorded Are you unemployed or without regular income? No 09/08/2023 Does the household have a rustlar source of income? (Household - for ages 0-17 years) Not on file 09/08/2023 Social Connections Answer Date Recorded How often do you feel lonely or isolated from th ose around you? Never 09/08/2023 Financial Resource Strain Answer Date R ecorded Do you have any trouble payi ng for your medications, or do you think you might in the future? No 09/08/2023 Does your family have troubl e paying for medicine? (Household - for ages 0-17 years) Not on file 09/08/2023 Transportation Needs Answer Date Record ed READ ONLY Do you have troubl e getting a ride to medical visits or work? Never True 09/08/2023 Does your family have a hard time getting a ride to doctors visits? (Household - for ages 0-17 years) Not on file 09/08/2023 Has lack of transportation k ept you from medical appointments, meetings, work, or from getting things needed for daily living? Check all that apply. (Adult - for ages 18 years and over) Not on file 09/08/2023 Do you (or your family) have trouble finding or paying for a ride (transportation)? (Household - for ages 0-17 years) Not on file 09/08/2023 Housing Stability Answer Date Recorded Do you currently live in a s helter or have no steady place to sleep at night? No 09/08/2023 READ ONLY Do you think you a re at risk of becoming homeless? No 09/08/2023 Does your family worry about paying for your home or becoming homeless? (Household - for ages 0-17 years) Not on file 0 09/08/2023 Are you homeless or worried that you might be in the future? (Adult - for ages 18 years and over) Not on file Are you (or your family) marquez eless or worried that you might be in the future? (Household - for ages 0-17 years) Not on file Food Insecurity Answer Date Recorded Do you need food for this week? No 09/08/2023 Are you able to get enough f ood for your family? (Household - for ages 0-17 years) Not on file 09/08/2023 Does your family need food t his week? (Household - for ages 0-17 years) Not on file 09/08/2023 Do you always have enough fo od for your family? (Household - for ages 0-17 years) Not on file 09/08/2023 Sex and Gender Information Value Date Recorded Sex Assigned at Male 08/16/2021 12:19 PM EDT Legal Sex Male 7:04 AM EST Gender Identity Male 08/16/2021 12:19 PM EDT Sexual Orientation Choose not to disclose 2020 2:34 PM EDT documented as of this encounter Functional Status * Are you deaf or do you have serious difficulty hearing? Answer Date of Assessment Author No 01/08/2021 1:48 AM EDT Gaurav Redd RN * Are you blind or do you have serious difficulty seeing, even when wearing glasses? Answer Date of Assessment Author No 01/08/2021 1:48 AM EDT Gaurav Redd RN * Do you have serious difficulty walking or climbing stairs? (5 years old or older) Answer Date of Assessment Author Yes 01/24/2021 2:44 PM EDT John Brush RN * Do you have difficulty dressing or bathing? (5 years old or older) Answer Date of Assessment Author No 01/08/2021 1:48 AM EDT Gaurav Redd RN * Because of a physical, mental, or emotional condition, do you have difficulty doing errands alone such as visiting a doctors office or shopping? (15 years old or older) Answer Date of Assessment Author Yes 01/08/2021 1:48 AM EDT Gaurav Redd RN documented as of this encounter Mental Status * Because of a physical, mental, or emotional condition, do you have serious difficulty concentrating, remembering, or making decisions? (5 years old or older) Answer Entry Date Author No 01/08/2021 1:48 AM EDT Gaurav Redd RN documented in this encounter Progress Notes * Jaimee Gandhi RPh - 05/13/2024 12:15 PM EST Images from the original note were not included. [facility] [phone] Pt remains admitted. Spoke with nurseAlexander no d/c plans today. Per CM notes possibly Thursday. [facility] will follow up for discharge plans. Jaimee Gandhi Rph, Pharm.D. Clinical Pharmacist [facility] ([facility]) [phone] 05/13/2024,12:22 PM documented in this encounter Plan of Treatment Upcoming Encounters Date Type Department Care Team (Late st Contact Info) Description 05/18/2024 7:10 AM EST Laboratory Lab Mobile Phlebotomy [facility] [address] [place] [address] [facility] Draw [address] [facility] [place] [address] 05/26/2024 10:30 AM EST Telemedicine [facility], [address] [address] Carolee Manriquez PA-C [address] [place] [address] Edna Baum, Community Health Risk Management Specialist [address] [place] [address] 07/11/2024 9:50 AM EDT Office Visit [facility] [place] [address] [place] [address] Sherry Maya DO [address] [facility] [place] [address] Scheduled Procedures Name Priority Associated Diagnoses Date/Ti me COLONOSCOPY FLEXIBLE PROXIMAL DIAGNOSTIC Recall History of colon polyps Health Maintenance Due Date Last Done Comments Cologuard 11/26/2008 Fecal Occult Blood Test 11/26/2008 Sigmoidoscopy 11/26/2008 Pneumococcal Vaccine: 50+ Years (3 of 3 - PCV20 or PCV21) 01/04/2022 01/04/2017, 09/08/2006 Colonoscopy 06/01/2023 06/01/2020, 10/25, 04/03/2015 Colorectal Cancer Screening 06/01/2023 COVID-19 Vaccine ( season) 2023 05/15/2021, 05/15/2021, 10/04/2020, Additional history exists Influenza Vaccine (FLU shot) (#1) 2023 01/23/2023, 01/23/2023, 02/12/2022, Additional history exists Albumin/Creatinine Ratio 06/19/20242 024, 08/15/2022, 11/06/2021, Additional history exists Depression Monitoring 09/07/2024 09/08/2023 HbA1c 11/03/2024 05/06/2024, 0811/2023, 08/05/2023, Additional history exists TSH 02/25/2025 02/26/2024, 06/2023, 09/24/2023, Additional history exists GFR 05/10/2025 05/10/2024, 04/27, 05/06/2024, Additional history exists DTap/Tdap Vaccines (3 - Td or Tdap) 12/13/2025 12/14/2015, 04/10/2008 Hepatitis B Vaccine Completed 11/16/2017, 07/14/2017, 05/14/2017 Zoster Vaccines Completed 04/10/2020, 01/17/2020 Diabetic Foot Exam Discontinued 08/16/2021, 0 05/02/2020, 11/08/2018, Additional history exists Diabetic Eye Exam Discontinued 06/06/2022, , 06/06/2022, Additional history exists HPV (Gardasil) Vaccine Aged Out No lo nger eligible based on patient's age to complete this topic MENINGOCOCCAL (MENACTRA/MENVEO) Aged Out No longer eligible based on patient's age to complete this topic documented as of this encounter Medical Devices Not on filedocumented as of this encounter Visit Diagnoses Diagnosis Anticoagulation management encounter- Primary Encounter for therapeutic drug monitoring documented in this encounter Advance Directives * Full Code (Latest Code Status on File) Date Activated Date Inactivated Comments 01/08/2021 2:47 AM 02/01/2021 2:20 PM This order r eflects the patients wishes and were consensually agreed upon. Question Answer Comments Discussion of Advance Directives occurred with: Patient * Full Code Date Activated Date Inactivated Comments 12/05/2019 3:49 PM 12/06/2019 6:33 PM This order r eflects the patients wishes and were consensually agreed upon. Question Answer Comments Discussion of Advance Directives occurred with: Patient Does the patient have a Living Will? No Does the patient have Health Care Power of Attor pablo? No * Full Code Date Activated Date Inactivated Comments 12/05/2019 3:06 PM 12/05/2019 3:49 PM This order r eflects the patients wishes and were consensually agreed upon. * Full Code Date Activated Date Inactivated Comments 11/07/2019 12:47 PM 11/08/2019 2:16 PM This order reflects the patients wishes and were consensually agreed upon. Question Answer Comments Discussion of Advance Directives occurred with: Not Discussed Does the patient have a Living Will? Yes, not cu rrently available Does the patient have Health Care Power of Computer Forensics Analyst? Yes, not currently available * Full Code Date Activated Date Inactivated Comments 06/08/2019 4:36 AM 06/14/2019 4:10 PM This order r eflects the patients wishes and were consensually agreed upon. Question Answer Comments Discussion of Advance Directives occurred with: Not Discussed Does the patient have a Living Will? No Does the patient have Health Care Power of Attor pablo? No Healthcare Agents on File Name Relationship Healthcare Agent [facility] p Communication Omar Mckeont Adult Child [facility] re Agent [facility] Care Agent Care Teams Scissors Sharpener Relationship Specialty Start Date End Date Sherry Maya DO PCP - General Family Medicine 11/12/11 documented as of this encounter
--- OUTSIDE RECORDS SUMMARY | 2024-05-24 05:12 | External Medical Summary | Summary of Care ---
Author Name Unknown Organization [facility] Address [address] [facility] [place] [address] Phone [phone] Care Team Providers Care Six Sigma Black Belt Engineer Name Role Phone Sherry Maya DO Primary Care Provider [phone] Reason for Visit * Reason Comments Dosage Adjustment Via Phone (anticoag Cl inic) Encounter Details Date Type Department Care Team (Late st Contact Info) Description 05/16/2024 6:45 AM EST Anticoagulation [facility], Renee Wise [address] [place] [address] [place] [address] [facility], [address] [place] [address] Anticoagulation management encounter* Allergies Active Allergy Reactions Criticality Noted Date Comments Benzonatate 12/08/2016 choking Keyanna Pedraza Other (Please comment) High 04/10/20 09 Choking documented as of this encounter (statuses as of 05/16/2024) Medications ONETOUCH LANCETS MISCIndications:DM type 2, not at goal ([facility]) 3 Box Dosing Unit 1 04/17/20 [...] Cap 5 03/16/20 17 Active Glucose Blood (AggiosTOUCH VERIO) STRP USE TO TEST BLOOD GLUCOSE 8 TIMES A DAY 800 Strip 3 03/18/20 19 Active Insulin Aspart 100 UNIT/ML Injection Solution Inject under the skin. FOR USE IN PUMP Active La Maison InteriorsTouch Verio Flex System w/Device Kit Use as [...] unspecified chronicity,Heart failure, systolic, due to CAD ([facility]) Bariatric heavy duty walker- 2 wheels- please document patient's weight at 308 1 Each 02/08/20 Active DIURETIC TITRATION PLANIndications:Hear t failure, systolic, due to CAD ([facility]) If no improvement on day 3, [...] 24 Active Vitamin D (Ergocalciferol) 1.25 MG (16783 UT) Oral Capsule (Drisdol) TAKE ONE CAPSULE [...] as of this encounter (statuses as of 05/16/2024) Active Problems Problem Noted Date Diagnosed Date [...] (07/04/2019): Added automatically from request for surgery [id number] 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 Project # [id number], CUSTOM BIKE BUILDER: Ben Hoover MD. CRC: DEBORAH Back. SUMMARY: To test the hypothesis that Evacetrapib 130 mg, in comparison to placebo, reduces the risk of major adverse coronary events in high-risk vascular disease patients. CONTACTS: During normal business hours, contact study staff at ; after hours System Planning Engineer via the [facility] hospital otr owner operator [phone]. 24-hour Global Study Helpline: [phone]. Lipid levels should not be ordered/obtained while this subject is in the Accelerate study. Lipids are being managed in a blinded fashion. If lipid levels are inadvertently obtained, it is important that test results are NOT provided to the patient, study doctor, behavioral therapy coordinator, or other study team members. Restricted meds while in the study: 1) niacin > 250 mg, 2) gemfibrozil with a potent [id number]. NINA on CPAP 06/28/2012 01/31/2020 Overview (06/28/2012): [...] as of this encounter (statuses as of 05/16/2024) Immunizations Name Administration Dates Next Due COVID-19 [...] No 09/08/2023 Does the household have a [facility] source [facility] income? (Household - for ages [...] Progress Notes * Jaimee Gandhi RPh - 05/16/2024 2:58 PM EST [facility] [phone] Pt remains admitted. Spoke with nurse, Alexander baldwin d/c plans today. [facility] will follow up for discharge plans. Jaimee Gandhi Rph, Pharm.D. Clinical Pharmacist [facility] ([facility]) [phone] 05/16/2024,3:06 PM documented in this encounter Plan of Treatment Upcoming Encounters Date Type Department Care Team (Late st Contact Info) Description 05/18/2024 6:45 AM EST Anticoagulation [facility], Renee Wise [address] [place] [address] [place] [address] [facility], [address] [place] [address] 05/18/2024 7:10 AM EST Laboratory Lab Mobile Phlebotomy [facility] [address] [place] [address] [facility] Mobile Home Draw [address] [place] [address] 05/26/2024 10:30 AM EST Telemedicine [facility], Counselor [address] [place] [address] Carolee Manriquez PA-C [address] [place] [address] Edna Baum, Community Health Donor Recruitment Manager [address] [place] [address] 07/11/2024 9:50 AM EDT Office Visit [facility], [facility] [address] [place] [phone] Sherry Maya DO [address] [place] [address] Scheduled Procedures Name Priority Associated Diagnoses Date/Ti [...] 01/23/2023, 02/12/2022, Additional history exists Albumin/Creatinine Ratio 06/19/2024 024, 08/15/2022, 11/06/2021, Additional history exists Depression Monitoring 09/07/2024 09/08/2023 HbA1c 11/03/2024 05/06/2024, 08/ 11/2023, 08/05/2023, Additional history exists TSH 02/25/2025 02/26/2024, [...] the patient have Health Care Power of Manager Transmission? Yes, not currently available * Full Code [...] on File Name Relationship [facility] Omar Lyle Adult Child [facility] re Agent Xi Lyle Adult Child Health Care Agent Care Teams Six Sigma Black Belt Engineer Relationship Specialty Start Date End Date Sherry Maya DO PCP - General Family Medicine 11/12/11 documented as of this encounter
--- OUTSIDE RECORDS SUMMARY | 2024-05-24 05:12 | External Medical Summary | Summary of Care ---
Author Name Unknown Organization [facility] Address [address] [facility] [place] [address] Phone [phone] Care Team Providers Care Hemotherapist Name Role Phone Sherry Maya DO Primary Care Provider + [phone] Reason for Visit * Reason Onset Date Comments Advice 05/18/2024 Encounter Details Date Type Department Care Team (Late st Contact Info) Description 05/18/2024 Telephone [facility] [address] [facility] [place] [address] Sherry Maya DO [address] [facility] [place] [address] Advice Allergies Active Allergy Reactions Criticality Noted Date Comments Benzonatate 12/08/2016 choking Keyanna Pedraza Other (Please comment) High 04/10/20 09 Choking documented as of this encounter (statuses as of 05/18/2024) Medications ONETOUCH LANCETS MISCIndications:DM type 2, not at goal ([facility]) 3 Box Dosing Unit 1 04/17/20 15 Active Nitroglycerin 0.4 MG Sublingual Tablet Sublingual Place under the tongue every 5 minutes as needed. Up to 3 in 15 minutes. 25 Tab 11 04/17/20 15 Active Magnesium Oxide 400 MG CapsuleIndications:H eart failure, systolic, due to CAD ([facility]),Automatic implantable cardioverter-defibri llator in situ,Chronic ischemic heart disease,Ischemic cardiomyopathy Take 1 Cap by mouth daily. 30 Cap 5 03/16/20 17 Active Glucose Blood (StrandsTOUCH VERIO) STRP USE TO TEST BLOOD GLUCOSE 8 TIMES A DAY 800 Strip 3 03/18/20 19 Active Insulin Aspart 100 UNIT/ML Injection Solution Inject under the skin. FOR USE IN PUMP Active OneTouch Verio Flex System w/Device Kit [...] mellitus due to underlying condition ([facility]),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),Right knee pain, unspecified chronicity,Heart failure, systolic, due to CAD ([facility]) Bariatric heavy duty walker- 2 wheels- please document patient's weight at 308 1 Each 02/08/20 Active DIURETIC TITRATION PLANIndications:Hear t failure, systolic, due to CAD ([facility]) If no improvement on day 3, contact heart failure managing provider. 1 Each 03/11/20 21 Active Loratadine 10 MG Oral Tablet (Claritin) [...] (infusion reaction protocol)). 2 Tablet 11 04/12/20 21 Active Meclizine HCl 12.5 MG Oral Tablet [...] 500 mg intravenously in the morning. 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) 07/29/2021 ICD (implantable cardioverte r-defibrillator) battery depletion 07/29/2021 Statin intolerance 07/29/2021 Status post shoulder surgery 07/29/2021 Venous stasis ulcer 07/29/2021 Mass of leg, right 07/29/2021 S/P BKA (below knee amputation) unilateral, left 01/17/2021 Insulin pump status 01/11/2021 Atrial fibrillation 07/26/2020 NINA (obstructive sleep apnea) 01/31/2020 VT (ventricular tachycardia) 07/04/2019 Overview (07/04/2019): Added automatically from request for surgery [id number] 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 [...] as of this encounter (statuses as of 05/18/2024) Resolved Problems Problem Noted Date Diagnosed Date [...] limited to breakdown of skin 01/19/2017 02/18/2018 CHAOT (acute kidney injury) 01/04/2017 Overview (07/29/2021): Last Assessment & Plan: Sec to Cor pulmonale and v tach-- improving --avoid nephrotoxic agents --IVF's held d/t fluid overload - will monitor closely --daily BMP Pain of right lower extremity 09/04/2016 01/19/2017 Venous ulcer of right leg 09/04/2016 Chest pain 05/08/2014 03/25/2017 Injury of foot, left 10/21/2013 017 Silent myocardial infarction 03/23/2013 11/08/2018 Accelerate Clinical Trial*[id number] 01/24/2013 05/16/2015 Overview (01/24/2013): ACCELERATE STUDY. Project # [id number], TELEGRAPH MESSENGER: Ben Hoover MD. CRC: DEBORAH Back. SUMMARY: To test the hypothesis that Evacetrapib 130 mg, in comparison to placebo, reduces the risk of major adverse coronary events in high-risk vascular disease patients. CONTACTS: During normal business hours, contact study staff at ; after hours Handkerchief Sample Clerk via the [facility] hospital fork lift truck operator [phone]. 24-hour Global Study Helpline: [phone]. Lipid levels should not be ordered/obtained while this subject is in the Accelerate study. Lipids are being managed in a blinded fashion. If lipid levels are inadvertently obtained, it is important that test results are NOT provided to the patient, study doctor, recruiting coordinator, or other study team members. Restricted meds while in the study: 1) niacin > 250 mg, 2) gemfibrozil with a potent [id number]. NINA on CPAP 06/28/2012 01/31/2020 Overview (06/28/2012): [...] 09/11/1999 12/23/2010 ELEV BL PRES W-O HYPERTN 09/11/1999 04/ 10/2003 documented as of this encounter (statuses as of 05/18/2024) Immunizations Name Administration Dates Next Due COVID-19 mRNA, LNP-s, No Pre serve, 2-Dose Series (Moderna) 10/04/2020,09/06/2020 COVID-19, mRNA, LNP-s, PF, B ooster, 100mcg/0.5mg (Moderna) 05/15/2021 Hepatitis B, 20+ yrs 11/16/2017,07/14/2017,05/1406/14/2017 Pneumococcal Conjugate Vacc, 13 Valent (Prevnar) 01/04/2017 Pneumococcal Polysaccharide PPV23 (Pneumovax) 09/08/2006 Seasonal Influenza Vac., MDV , IM, 0.5 mL (Fluzone) 03/15/2014,02/09/2013,01/12/2012,04/28,05/07/2010,01/05/2009,03/13/20 08 03/15/2015 Seasonal Influenza Virus Vac cine, Unspecified Formulation [...] No 09/08/2023 Does the household have a re lar source of income? (Household - for ages [...] Assessment Author Yes 01/24/2021 2:44 PM EDT Jonh Brush RN * Do you have difficulty dressing or bathing? (5 years old or older) Answer Date of Assessment Author No 01/08/2021 1:48 AM Gaurav Martínez RN * Because of a physical, mental, or emotional condition, do you have difficulty doing errands alone such as visiting a doctors office or shopping? (15 years old or older) Answer Date of Assessment Author Yes 01/08/2021 1:48 AM EDGaurav Jones RN documented as of this encounter Mental Status * Because of a physical, mental, or emotional condition, do you have serious difficulty concentrating, remembering, or making decisions? (5 years old or older) Answer Entry Date Author No 01/08/2021 1:48 AM EDGaurav Jones RN documented in this encounter Miscellaneous Notes * Telephone Encounter - Karolina Larry LPN - 05/18/2024 1:18 PM EST Please advise, thank you! * Telephone Encounter - April Eugene OSA - 05/18/2024 11:11 AM EST Call [facility] Nurse. They are asking for supplemental order dated 04/17/2024. They will fax again today. For questions call [phone] Fax to [phone] documented in this encounter Plan of Treatment Upcoming Encounters Date Type Department Care Team (Late st Contact Info) Description 05/26/2024 10:30 AM EST Telemedicine [facility], [address] [place] [address] Carolee Manriquez PA-C [address] [place] [address] Edna Baum, Community Health Sales Trainee [address] [place] [address] 07/11/2024 9:50 AM EDT Office Visit [facility] [address] [facility] [place] [address] Sherry Maya DO [address] [facility] [place] [address] Scheduled Procedures Name Priority Associated Diagnoses Date/Ti [...] 08/05/2023, Additional history exists TSH 02/25/2025 02/26/2024, 1006/2023, 09/24/2023, Additional history exists GFR 05/17/2025 05/17/2024, 04/28, 05/16/2024, Additional history exists DTap/Tdap Vaccines (3 - [...] filedocumented as of this encounter Advance Directives * Full Code [...] the patient have Health Care Power of Community Arts Worker? Yes, not currently available * Full Code [...] [facility] re Agent [facility] Care Agent Care Teams Hemotherapist Relationship Specialty Start Date End Date Sherry Maya DO PCP - General Family Medicine 11/12/11 documented as of this encounter
--- OUTSIDE RECORDS SUMMARY | 2024-05-24 05:12 | External Medical Summary | Summary of Care ---
Author Name Unknown Organization [facility] Address [address] [facility] [address] [place] [address] Phone [phone] Care Team Providers Care Overhead Worker Name Role Phone Sherry Maya DO Primary Care Provider + [phone] Reason for Visit * Reason Onset Date Comments Advice 05/18/2024 Encounter Details Date Type Department Care Team (Late st Contact Info) Description 05/18/2024 Telephone [facility] [address] [facility] [place] [address] Sherry Maya DO [address] [facility] [place] [address] Advice Allergies Active Allergy Reactions Criticality Noted Date Comments Benzonatate 12/08/2016 choking Keyanna Perdaza Other (Please comment) High 04/10/20 09 Choking documented as of this encounter (statuses as of 05/18/2024) Medications ONETOUCH LANCETS MISCIndications:DM type 2, not at goal ([facility]) 3 Box Dosing Unit 1 04/17/20 15 Active Nitroglycerin 0.4 MG Sublingual Tablet Sublingual Place under the tongue every 5 minutes as needed. Up to 3 in 15 minutes. 25 Tab 11 04/17/20 15 Active Magnesium Oxide 400 MG CapsuleIndications:H eart failure, systolic, due to CAD ([facility]),Automatic implantable cardioverter-defibri llator in situ,Chronic ischemic heart disease,Ischemic cardiomyopathy Take 1 Cap by mouth daily. 30 Cap 5 03/16/20 17 Active Glucose Blood ([employer]TOUCH VERIO) STRP USE TO TEST BLOOD GLUCOSE [...] diabetes mellitus due to underlying condition ([facility]),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),Right knee pain, unspecified chronicity,Heart failure, systolic, due to CAD ([facility]) Bariatric heavy duty walker- 2 wheels- please document patient's weight at 308 1 Each 02/08/20 Active DIURETIC TITRATION PLANIndications:Hear t failure, systolic, due to CAD ([facility]) If no improvement on day 3, contact [...] 24 Active Vitamin D (Ergocalciferol) 1.25 MG (37763 UT) Oral Capsule (Drisdol) TAKE ONE CAPSULE [...] (07/04/2019): Added automatically from request for surgery [id number] 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 Project # [id number], MACHINE STAMPER: Ben Hoover MD. CRC: DEBORAH Back. SUMMARY: To test the hypothesis that Evacetrapib 130 mg, in comparison to placebo, reduces the risk of major adverse coronary events in high-risk vascular disease patients. CONTACTS: During normal business hours, contact study staff at ; after hours Material Worker via the [facility] hospital flexographic printing press operator [phone]. 24-hour Global Study Helpline: [phone]. Lipid levels should not be ordered/obtained while this subject is in the Accelerate study. Lipids are being managed in a blinded fashion. If lipid levels are inadvertently obtained, it is important that test results are NOT provided to the patient, study doctor, travel coordinator, or other study team members. Restricted meds while in the study: 1) niacin > 250 mg, 2) gemfibrozil with a potent [id number]. NINA on CPAP 06/28/2012 01/31/2020 Overview (06/28/2012): [...] No 09/08/2023 Does the household have a [facility] source [facility] income? (Household - for ages [...] Gaurav Redd RN documented in this encounter Miscellaneous Notes * Telephone Encounter - April Eugene OSA - 05/18/2024 11:11 AM EST Call [facility] Nurse. They are asking for supplemental order dated 04/17/2024. They will fax again today. For questions call [phone] Fax to [phone] documented in this encounter Plan of Treatment Upcoming Encounters Date Type Department Care Team (Late st Contact Info) Description 05/26/2024 10:30 AM EST Telemedicine [facility] [address] [place] [address] Carolee Manriquez PA-C [address] [place] [address] Edna Baum, Community Health Shirt Line Operator [address] [place] [address] 07/11/2024 9:50 AM EDT [facility] [address] [place] [address] Sherry Maya DO [address] [place] [address] Scheduled Procedures Name Priority Associated Diagnoses Date/Ti [...] Depression Monitoring 09/07/2024 09/08/2023 HbA1c 11/03/2024 05/06/2024, 08/0 11/2023, 08/05/2023, Additional history exists TSH 02/25/2025 02/26/2024, 10/0 06/2023, 09/24/2023, Additional history exists GFR 05/17/2025 05/17/2024, [...] the patient have Health Care Power of Annealer? Yes, not currently available * Full Code [...] Agents on File Name Relationship Healthcare Agent [facility] Communication Omar Lyle Adult Child [facility] re Agent Xi Lyle Adult Child Health Care Agent Care Teams Overhead Worker Relationship Specialty Start Date End Date Sherry Maya DO PCP - General Family Medicine 11/12/11 documented as of this encounter
--- OUTSIDE RECORDS SUMMARY | 2024-05-24 05:13 | External Medical Summary | Summary of Care ---
Author Name Unknown Organization [facility] Address [address] [facility] [place] [address] Phone [phone] Care Team Providers Care Prosthetics Lab Technician Name Role Phone Sherry Maya DO Primary Care Provider [phone] Reason for Visit * Reason Onset Date Comments Pacemaker Clinic 05/11/2024 Advisory Encounter Details Date Type Department Care Team (Late st Contact Info) Description 05/11/2024 Telephone Cardiology, [facility] [address] [facility] [place] [address] [place], Pacer Clinic [facility] [address] [facility] [place] [address] Pacemaker Clinic (Advisory) Allergies Active Allergy Reactions Criticality Noted Date Comments Benzonatate 12/08/2016 choking Keyanna Pedraza Other (Please comment) High 04/10/20 09 Choking documented as of this encounter (statuses as of 05/11/2024) Medications ONETOUCH LANCETS MISCIndications:DM type 2, not at goal ([facility]) 3 Box Dosing Unit 1 04/17/20 15 Active Nitroglycerin 0.4 MG Sublingual Tablet Sublingual Place under the tongue every 5 minutes as needed. Up to 3 in 15 minutes. 25 Tab 11 04/17/20 15 Active Magnesium Oxide 400 MG CapsuleIndications:H eart failure, systolic, due to CAD ([facility]),Automatic implantable cardioverter-defibri llator in situ,Chronic ischemic heart disease,Ischemic cardiomyopathy Take 1 Cap by mouth daily. 30 Cap 5 03/16/20 17 Active Glucose Blood (HidInImageTOUCH VERIO) STRP USE TO TEST BLOOD GLUCOSE [...] unspecified chronicity,Heart failure, systolic, due to CAD ([facility]) Bariatric heavy duty walker- 2 wheels- please document patient's weight at 308 1 Each 02/08/20 Active DIURETIC TITRATION PLANIndications:Hear t failure, systolic, due to CAD ([facility]) If no improvement on day 3, contact [...] moderate reaction (infusion reaction protocol)). 2 Tablet 04/12/20 21 Active Meclizine HCl 12.5 MG Oral Tablet (Antivert) Take by mouth 1 Tablet as needed in the morning AND 1 Tablet as needed at noon AND 1 Tablet as needed in the evening for Dizziness. 30 Tablet 05/30/19 22 Active Fluticasone Propionate 50 MCG/ACT [...] BY COUMADIN CLINIC 180 Tablet 3 08/31/19 Active Metoclopramide HCl 10 MG Oral Tablet [...] 75mg twice daily. 200 Tablet 3 09/03/19 Active Additional Information Patient taking differently:50 mg [...] Tablet before bedtime. 60 Tablet 2 03/02/20 Active Additional Information Patient taking differently:20 mEq [...] 24 Active Vitamin D (Ergocalciferol) 1.25 MG (67943 UT) Oral Capsule (Drisdol) TAKE ONE CAPSULE [...] as of this encounter (statuses as of 05/11/2024) Active Problems Problem Noted Date Diagnosed Date [...] (07/04/2019): Added automatically from request for surgery [id number] 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 [...] as of this encounter (statuses as of 05/11/2024) Resolved Problems Problem Noted Date Diagnosed Date [...] Silent myocardial infarction 03/23/2013 11/08/2018 Accelerate Clinical Trial*[id number] 01/24/2013 05/16/2015 Overview (01/24/2013): ACCELERATE STUDY. Project # [id number], ATHLETE MANAGER: Ben Hoover MD. CRC: DEBORAH Back. SUMMARY: To test the hypothesis that Evacetrapib 130 mg, in comparison to placebo, reduces the risk of major adverse coronary events in high-risk vascular disease patients. CONTACTS: During normal business hours, contact study staff at ; after hours Sort Line Worker via the [facility] hospital yardage control operator [phone]. 24-hour Global Study Helpline: [phone]. Lipid levels should not be ordered/obtained while [...] 250 mg, 2) gemfibrozil with a potent [id number]. NINA on CPAP 06/28/2012 01/31/2020 Overview (06/28/2012): [...] as of this encounter (statuses as of 05/11/2024) Immunizations Name Administration Dates Next Due COVID-19 [...] No 09/08/2023 Does the household have a [facility] source of income? (Household - for ages [...] Telephone Encounter - Ani Rios LPN - 05/11/2024 3:37 PM EST Letter and MyG message sent to patient regarding [employer] advisory documented in this encounter Plan of Treatment Upcoming Encounters Date Type Department Care Team (Late st Contact Info) Description 05/11/2024 6:00 PM EST Anticoagulation [facility], [address] [place] [address] [place] [address] Anticoagulation management encounter* 05/12/2024 6:45 AM EST Anticoagulation Centralized Clinical Pharmacy Services, [place]enee [address] [place] [address] [place] [address] 05/16/2024 7:00 AM EST Laboratory Lab Mobile Phlebotomy [place] [id number] [place] [address] M[facility], Gml Mobile Home Draw [address] [facility] [place] [address] 05/26/2024 10:30 AM EST [facility]medicine [facility], [place] [address] [place] [address] Carolee Manriquez PA-C [address] [place] [address] Edna Baum, Community Health Mitten Stitcher [address] [place] [address] 07/11/2024 9:50 AM EDT Office Visit [facility]Note 3] [address] [place] [id number] Sherry Maya DO [address] [place] [address] Scheduled Procedures Name Priority Associated Diagnoses Date/Ti [...] 08/05/2023, Additional history exists TSH 02/25/2025 02/26/2024, 100 06/2023, 09/24/2023, Additional history exists GFR 05/10/2025 [...] the patient have Health Care Power of Cinder Crusher Operator? Yes, not currently available * Full Code [...] Healthhi p Communication Omar Lyle Adult Child [facility] re Agent Xi Mckeont Adult Child [facility] Care Agent Care Teams Prosthetics Lab Technician Relationship Specialty Start Date End Date Sherry Maya DO PCP - General Family Medicine 11/12/11 documented as of this encounter
--- OUTSIDE RECORDS SUMMARY | 2024-05-24 05:13 | External Medical Summary | Summary of Care ---
Author Name Unknown Organization [facility] Address [address] [facility] [place] [address] Phone [phone] Care Team Providers Care Windows Server Support Technician Name Role Phone Sherry Maya DO Primary Care Provider [phone] Reason for Visit * Reason Comments Dosage Adjustment Via Phone (anticoag Cl inic) Encounter Details Date Type Department Care Team (Late st Contact Info) Description 05/11/2024 6:00 PM EST Anticoagulation Centralized Clinical Pharmacy Services, Renee Wise [address] [place] [address] [place] [address] [facility], [address] [place] [address] Anticoagulation management encounter* Allergies Active Allergy Reactions Criticality Noted Date Comments Benzonatate 12/08/2016 choking Keyanna Pedraza Other (Please comment) High 04/10/20 09 Choking documented as of this encounter (statuses as of 05/11/2024) Medications ONETOUCH LANCETS MISCIndications:DM type 2, not at goal ([facility]) 3 Box Dosing Unit 1 04/17/20 15 [...] Cap 5 03/16/20 17 Active Glucose Blood (Rapid7TOUCH VERIO) STRP USE TO TEST BLOOD GLUCOSE 8 TIMES A DAY 800 Strip 3 03/18/20 19 Active Insulin Aspart 100 UNIT/ML Injection Solution Inject under the skin. FOR USE IN PUMP Active Interbank FXTouch Verio Flex System w/Device Kit Use as [...] unspecified chronicity,Heart failure, systolic, due to CAD ([facility]) Bariatric heavy duty walker- 2 wheels- please document patient's weight at 308 1 Each 02/08/20 Active DIURETIC TITRATION PLANIndications:Hear t failure, systolic, due to CAD ([facility]) If no improvement on day 3, contact [...] 24 Active Vitamin D (Ergocalciferol) 1.25 MG (12340 UT) Oral Capsule (Drisdol) TAKE ONE CAPSULE [...] (07/04/2019): Added automatically from request for surgery [id number] 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 [...] Silent myocardial infarction 03/23/2013 11/08/2018 Accelerate Clinical Trial*[id number] 01/24/2013 05/16/2015 Overview (01/24/2013): ACCELERATE STUDY. Project # [id number], FOREIGN LANGUAGES DEPARTMENT CHAIR: Ben Hoover MD. CRC: DEBORAH Back. SUMMARY: To test the hypothesis that Evacetrapib 130 mg, in comparison to placebo, reduces the risk of major adverse coronary events in high-risk vascular disease patients. CONTACTS: During normal business hours, contact study staff at ; after hours Industrial Health Engineer via the [facility] hospital welding pantograph machine operator [phone]. 24-hour Global Study Helpline: [phone]. Lipid levels should not be ordered/obtained while this subject is in the Accelerate study. Lipids are being managed in a blinded fashion. If lipid levels are inadvertently obtained, it is important that test results are NOT provided to the patient, study doctor, admissions coordinator, or other study team members. Restricted meds while in the study: 1) niacin > 250 mg, 2) gemfibrozil with a potent [id number]. NINA on CPAP 06/28/2012 01/31/2020 Overview (06/28/2012): [...] No 09/08/2023 Does the household have a [facility] source of income? (Household - for [...] Assessment Author No 01/08/2021 1:48 AM EDT Gauarv Redd RN * Are you blind or [...] Progress Notes * Jaimee Gandhi RPh - 05/11/2024 12:14 PM EST Per chart review pt admitted to [facility] for debridement. [facility] will follow up again tomorrow. Jaimee Gandhi Rph, Pharm.D. Clinical Pharmacist Centralized Clinical Pharmacy Services ([facility]) [phone] 05/11/2024,12:15 PM * Maldonado Lilly CPhT - 05/11/2024 11:35 AM EST Per todays GML appointment note-- Status No Show No Show Documentation User Action Outcome Comment LUIS MANUEL LUGO 05/11/2024 11:16 AM no answer looks like patient is having surgery today Maldonado Lilly CPhT Surveillance Specialist II [facility]ized Clinical Pharmacy Services ([facility]) 05/11/2024,11:35 AM documented in this encounter Plan of Treatment Upcoming Encounters Date Type Department Care Team (Late st Contact Info) Description 05/11/2024 2:00 PM EST Office Visit Infectious Disease [facility] [place] [address] [place] [address] Sherry Roy MD [address] [place] [address] 05/12/2024 6:45 AM EST Anticoagulation [facility] Clinical Pharmacy Services, Renee Wise [address] [place] [address] [place] [address] [facility], [facility] [address] [place] [address] 05/26/2024 10:30 AM EST Telemedicine [facility], [place] [address] [place] [address] Carolee Manriquez PA-C [address] [place] [address] Edna Baum, Community Health Reduction Plant Supervisor [address] [place] [address] 07/11/2024 9:50 AM EDT Office Visit [facility] [address] [place] [phone] Sherry Maya, [address] [place] [address] Scheduled Procedures Name Priority Associated Diagnoses Date/Ti me COLONOSCOPY FLEXIBLE PROXIMAL DIAGNOSTIC Recall History of colon polyps Health Maintenance Due Date Last Done Comments Cologuard 11/26/2008 Fecal Occult Blood Test 11/26/2008 Sigmoidoscopy 11/26/2008 Pneumococcal Vaccine: 50+ Years (3 of 3 - PCV20 or PCV21) 01/04/2022 01/04/2017, 09/08/2006 Colonoscopy 06/01/2023 06/01/2020, 10/25, 04/03/2015 Colorectal Cancer Screening 06/01/2023 COVID-19 Vaccine (4 - 2024-25 season) 2023 05/15/2021, 05/15/2021, 10/04/2020, Additional history exists Influenza Vaccine (FLU shot) (#1) 2023 01/23/2023, 01/23/2023, 02/12/2022, Additional history exists Albumin/Creatinine Ratio 06/19/2024 024, 08/15/2022, 11/06/2021, Additional history exists Depression Monitoring 09/07/2024 09/08/2023 HbA1c 11/03/2024 05/06/2024, 080 11/2023, 08/05/2023, Additional history exists TSH 02/25/2025 02/26/2024, 1006/2023, 09/24/2023, Additional history exists GFR 05/10/2025 05/10/2024, [...] the patient have Health Care Power of Olive Grower? Yes, not currently available * Full Code [...] Agents on File Name Relationship [facility] Agent [facility] Omar Lyle Adult Child [facility] re Agent Xi Lyle Adult Child Health Care Agent Care Teams Windows Server Support Technician Relationship Specialty Start Date End Date Sherry Maya DO PCP - General Family Medicine 11/12/11 documented as of this encounter
--- OUTSIDE RECORDS SUMMARY | 2024-05-24 05:13 | External Medical Summary | Summary of Care ---
Author Name Unknown Organization [facility] Address [address] [facility] [place] [address] Phone [phone] Care Team Providers Care Fluid Dynamicist Name Role Phone Sherry Maya DO Primary Care Provider [phone] Reason for Visit * Reason Comments Dosage Adjustment Via Phone (anticoag Cl inic) Encounter Details Date Type Department Care Team (Late st Contact Info) Description 05/12/2024 6:45 AM EST Anticoagulation Centralized Clinical Pharmacy Services, Renee Wise [address] [place] [address] [place] [address] [facility], [address] [place] [address] Anticoagulation management encounter* Allergies Active Allergy Reactions Criticality Noted Date Comments Benzonatate 12/08/2016 choking Keyanna Pedraza Other (Please comment) High 04/10/20 09 Choking documented as of this encounter (statuses as of 05/12/2024) Medications ONETOUCH LANCETS MISCIndications:DM type 2, not at goal ([facility]) 3 Box Dosing Unit 1 04/17/20 15 [...] Cap 5 03/16/20 17 Active Glucose Blood (Value and Budget Housing CorporationTOUCH VERIO) STRP USE TO TEST BLOOD GLUCOSE 8 TIMES A DAY 800 Strip 3 03/18/20 19 Active Insulin Aspart 100 UNIT/ML Injection Solution Inject under the skin. FOR USE IN PUMP Active ChamelicTouch Verio Flex System w/Device Kit Use as [...] unspecified chronicity,Heart failure, systolic, due to CAD ([facility]) Bariatric heavy duty walker- 2 wheels- please document patient's weight at 308 1 Each 02/08/20 Active DIURETIC TITRATION PLANIndications:Hear t failure, systolic, due to CAD ([facility]) If no improvement on day 3, contact [...] 24 Active Vitamin D (Ergocalciferol) 1.25 MG (98717 UT) Oral Capsule (Drisdol) TAKE ONE CAPSULE [...] as of this encounter (statuses as of 05/12/2024) Active Problems Problem Noted Date Diagnosed Date [...] (07/04/2019): Added automatically from request for surgery [id number] 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 Project # [id number], PSYCHOLOGICAL ANTHROPOLOGIST: Ben Hoover MD. CRC: DEBORAH Back. SUMMARY: To test the hypothesis that Evacetrapib 130 mg, in comparison to placebo, reduces the risk of major adverse coronary events in high-risk vascular disease patients. CONTACTS: During normal business hours, contact study staff at ; after hours Egg Trayer via the [facility] hospital fabricating machine operator [phone]. 24-hour Global Study Helpline: [phone]. Lipid levels should not be ordered/obtained while this subject is in the Accelerate study. Lipids are being managed in a blinded fashion. If lipid levels are inadvertently obtained, it is important that test results are NOT provided to the patient, study doctor, spa experience coordinator, or other study team members. Restricted meds while in the study: 1) niacin > 250 mg, 2) gemfibrozil with a potent [id number]. NINA on CPAP 06/28/2012 01/31/2020 Overview (06/28/2012): [...] as of this encounter (statuses as of 05/12/2024) Immunizations Name Administration Dates Next Due COVID-19 [...] No 09/08/2023 Does the household have a [facility]? (Household [...] Progress Notes * Jaimee Gandhi RPh - 05/12/2024 2:09 PM EST [facility] [phone] Pt remains admitted. [facility] will follow up for discharge plans. Jaimee Gandhi Rph, Pharm.D. Clinical Pharmacist Centralized Clinical Pharmacy Services ([facility]) [phone] 05/12/2024,2:17 PM documented in this encounter Plan of Treatment Upcoming Encounters Date Type Department Care Team (Late st Contact Info) Description 05/13/2024 6:45 AM EST Anticoagulation Centralized Clinical Pharmacy Services, Renee Wise [address] [place] [address] [place] [address] [facility], [address] [place] [address] 05/18/2024 7:10 AM EST Laboratory Lab Mobile Phlebotomy [facility] [address] [place] [address] Mvmg, Gml Mobile Home Draw [address] [place] [address] 05/26/2024 10:30 AM EST Telemedicine [facility], [place] [address] [place] [address] Carolee Manriquez PA-C [address] [place] [address] Edna Baum, Community Health Flash Designer [address] [place] [address] 07/11/2024 9:50 AM EDT Office Visit [facility] [place] [address] Sherry Maya DO [address] [facility] [address] Scheduled Procedures Name Priority Associated Diagnoses Date/Ti [...] the patient have Health Care Power of Jackhammer Operator? Yes, not currently available * Full [...] Relationshi p Communication Omar Lyle Adult Child [facility] re Agent Xi Mckeont Adult Child [facility] Care Agent Care Teams Fluid Dynamicist Relationship Specialty Start Date End Date Sherry Maya DO PCP - General Family Medicine 11/12/11 documented as of this encounter
--- OUTSIDE RECORDS SUMMARY | 2024-05-24 05:13 | External Medical Summary | Summary of Care ---
Author Name Unknown Organization [facility] Address [address] [place] [address] Phone [phone] Care Team Providers Care Manager Department Name Role Phone Sherry Maya DO Primary Care Provider [phone] Reason for Visit * Reason Onset Date Comments Appointment 05/12/2024 Encounter Details Date Type Department Care Team (Late st Contact Info) Description 05/12/2024 Telephone [facility], [place] [address] [place], [place] [id number] Konrad Padron, NINA [address] [place], [place] [phone] Appointment (/) Allergies Active Allergy Reactions Criticality Noted Date Comments Benzonatate 12/08/2016 choking Keyanna Pedraza Other (Please comment) High 04/10/20 09 Choking documented as of this encounter (statuses as of 05/12/2024) Medications ONETOUCH LANCETS MISCIndications:DM type 2, not at goal ([facility] [...] Cap 5 03/16/20 17 Active Glucose Blood (BunchballUCH VERIO) STRP USE TO TEST BLOOD GLUCOSE 8 TIMES A DAY 800 Strip 3 03/18/20 19 Active Insulin Aspart 100 UNIT/ML Injection Solution Inject under the skin. FOR USE IN PUMP Active Secure-NOKToAstrostar Verio Flex System w/Device Kit Use as [...] unspecified chronicity,Heart failure, systolic, due to CAD ([facility]) Bariatric heavy duty walker- 2 wheels- please document patient's weight at 308 1 Each 02/08/20 Active DIURETIC TITRATION PLANIndications:Hear t failure, systolic, due to CAD ([facility]) If no improvement on [...] 24 Active Vitamin D (Ergocalciferol) 1.25 MG (51758 UT) Oral Capsule (Drisdol) TAKE ONE CAPSULE [...] of right foot with necrosis of muscle 07/2023 Morbid (severe) obesity due to excess [...] (07/04/2019): Added automatically from request for surgery [id number] 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 [...] Silent myocardial infarction 03/23/2013 11/08/2018 Accelerate Clinical Trial*[id number] 01/24/2013 05/16/2015 Overview (01/24/2013): ACCELERATE STUDY. Project # [id number], EMPLOYMENT COORDINATOR: Ben Hoover MD. CRC: DEBORAH Back. SUMMARY: To test the hypothesis that Evacetrapib 130 mg, in comparison to placebo, reduces the risk of major adverse coronary events in high-risk vascular disease patients. CONTACTS: During normal business hours, contact study staff at ; after hours Candy Maker via the [facility] hospital dixonac operator [phone]. 24-hour Global Study Helpline: [phone]. Lipid levels should not be ordered/obtained while this subject is in the Accelerate study. Lipids are being managed in a blinded fashion. If lipid levels are inadvertently obtained, it is important that test results are NOT provided to the patient, study doctor, borough coordinator, or other study team members. Restricted meds while in the study: 1) niacin > 250 mg, 2) gemfibrozil with a potent [id number]. NINA on CPAP 06/28/2012 01/31/2020 Overview (06/28/2012): [...] No 09/08/2023 Does the household have a [facility] source [facility] income? (Household - [...] Telephone Encounter - Konrad Padron OSA - 05/12/2024 5:04 PM EST No answer and unable to leave voice mail to confirm kaco return for 05/26 at 1030am documented in this encounter Plan of Treatment Upcoming Encounters Date Type Department Care Team (Late st Contact Info) Description 05/13/2024 6:45 AM EST Anticoagulation Centralized Clinical Pharmacy Services, Renee Wise [address] [place] [address] [place] [address] [place] [address] 05/18/2024 7:10 AM EST Laboratory Lab Mobile Phlebotomy [facility] [address] [place] [address] [facility], Gml Mobile Home Draw [address] [facility] [place] [address] 05/26/2024 10:30 AM EST Telemedicine [facility], [address] [place] [address] Carolee Manriquez PA-C [address] [place] [address] Edna Baum, Community Health Fishing Vessel Mate [address] [place] [address] 07/11/2024 9:50 AM EDT Office Visit [facility] [address] [facility] [place] [address] Sherry Maya DO [address] [facility] [address] Scheduled Procedures Name [...] the patient have Health Care Power of Wheel Of Fortune Dealer? Yes, not currently available * Full Code [...] Agents on File Name Relationship Healthcare Agent [facility] p Communication Omar Lyle Adult Child [facility] re Agent Xi yLle Adult Child [facility] Care Agent Care Teams Manager Department Relationship Specialty Start Date End Date Sherry Maya DO PCP - General Family Medicine 11/12/11 documented as of this encounter
--- OUTSIDE RECORDS SUMMARY | 2024-05-24 05:14 | External Medical Summary | Summary of Care ---
Author Name Unknown Organization [facility] Address [address] [facility] [place] [address] Phone [phone] Care Team Providers Care Pipe Cleaning Machine Operator Name Role Phone David Maya DO Primary Care Provider + [phone] Reason for Visit * Reason Onset Date Comments Medication Refill 05/04/2024 Encounter Details Date Type Department Care Team (Late st Contact Info) Description 05/04/2024 Refill [facility] [address] [facility] [place] [address] Kwame Parks MD [address] [facility] [place] [address] S/P BKA (below knee amputation) unilateral, left (HCC); Diabetic polyneuropathy associated with type 2 diabetes mellitus (HCC); Leg wound, right, initial encounter Allergies Active Allergy Reactions Criticality Noted Date Comments Benzonatate 12/08/2016 choking Keyanna Pedraza Other (Please comment) High 04/10/20 09 Choking documented as of this encounter (statuses as of 05/05/2024) Medications ONETOUCH LANCETS MISCIndications:DM type 2, not at goal ([facility]) 3 Box Dosing Unit 1 015 Active Nitroglycerin 0.4 MG Sublingual Tablet Sublingual Place under the tongue every 5 minutes as needed. Up to 3 in 15 minutes. 25 Tab 11 12/22/2 015 Active Magnesium Oxide 400 MG CapsuleIndications:H eart failure, systolic, due to CAD ([facility]),Automatic implantable cardioverter-defibri llator in situ,Chronic ischemic heart disease,Ischemic cardiomyopathy Take 1 Cap by mouth daily. 30 Cap 5 Active Glucose Blood (HealthDataInsightsTOUCH VERIO) STRP USE TO TEST BLOOD GLUCOSE 8 TIMES A DAY 800 Strip 3 Active Insulin Aspart 100 UNIT/ML Injection Solution Inject under the skin. FOR USE IN PUMP Active TrendrToEnswers Verio Flex System w/Device Kit Use as directed. 01/26 Active Diclofenac Sodium 1 % External Gel (Voltaren)Indication s:Hand arthritis Apply topically to affected area daily. Apply to hands 100 g Active polyethylene glycol 3350 119 gram PO POWD Take 119 g by mouth daily as needed for Constipation. May use up to 2-3 times per day as needed. Active BiPAP every night at bedtime. Active WalkerIndications:Os teomyelitis of foot, left, acute ([facility]),Diabetic polyneuropathy associated with diabetes mellitus due to underlying condition ([facility]),Ulcer of right foot with necrosis of muscle ([facility]),Right knee pain, unspecified chronicity,Heart failure, systolic, due to CAD ([facility]) Bariatric heavy duty walker- 2 wheels- please document patient's weight at 308 1 Each Active DIURETIC TITRATION PLANIndications:Hear t failure, systolic, due to CAD ([facility]) If no improvement on day 3, contact heart failure managing provider. 1 Each Active Loratadine 10 MG Oral Tablet (Claritin) Take 1 Tablet by mouth daily. 100 Tablet 3 Active Metoprolol Succinate ER 25 MG Oral Tablet Extended Release 24 Hour (Toprol XL) Take 1 Tablet by mouth 2 times a day. 200 Tablet 3 Active Additional Information Patient not taking.Reported on 02/29/2024 Albuterol Sulfate 108 (90 Base) MCG/ACT Inhalation Aerosol Powder Breath ActivatedIndications :Asthma in remission Inhale 2 Puffs by mouth 4 times a day as needed for Wheezing. 3 Each 3 Active Aspirin 81 MG Oral Tablet ChewableIndications: Dyslipidemia, goal LDL below 100,DM type 2, not at goal (HCC),Diabetic polyneuropathy associated with type 1 diabetes mellitus (HCC),HTN, goal below 130/80,Abnormal electrocardiogram Take 1 Tablet by mouth daily. With food. 100 Tablet 5 Active Acetaminophen 325 MG Oral Tablet (Tylenol) Take 2 Tablets by mouth as needed (for mild to moderate reaction (infusion reaction protocol)). 2 Tablet 11 Active Meclizine HCl 12.5 MG Oral Tablet (Antivert) Take by mouth 1 Tablet as needed in the morning AND 1 Tablet as needed at noon AND 1 Tablet as needed in the evening for Dizziness. 30 Tablet 1 Active Fluticasone Propionate 50 MCG/ACT Nasal SuspensionIndication s:Otalgia, right,Dysfunction of Eustachian tube, right,Chronic rhinitis Administer into each nostril 2 Sprays in the morning. Administer 2 Sprays into each nostril daily.. 9.9 mL 10 Active Additional Information Patient not taking.Reported on 03/03/2024 Mupirocin 2 % External Ointment (Bactroban) Active Ferrous Sulfate 325 (65 Fe) MG Oral Tablet (Feosol)Indications: Other iron deficiency anemia Take 1 Tablet by mouth in the morning and 1 Tablet before bedtime. 60 Tablet 023 Active Ammonium Lactate 12 % External Lotion (Lac-Hydrin)Indicati ons:S/P BKA (below knee amputation) unilateral, left ([facility]) Apply topically to affected area as needed for Dry Skin. Apply to rash on legs 400 g 024 Active Omeprazole 20 MG Oral Capsule Delayed Release (PriLOSEC)Indication s:Heart burn Take 1 Capsule by mouth in the morning. 100 Capsule 1 024 Active Atorvastatin Calcium 80 MG Oral Tablet (Lipitor)Indications :Dyslipidemia, goal LDL below 100 Take 1 Tablet by mouth in the morning. 100 Tablet 3 024 Active Additional Information Patient not taking.Reported on 03/03/2024 metOLazone 2.5 MG Oral Tablet (Zaroxolyn) Take 1 Tablet by mouth once a day on Thursday, Thursday, and Thursday only. 90 Tablet 1 024 Active DULoxetine HCl 20 MG Oral Capsule Delayed Release Particles (duloxetine) Take 1 Capsule by mouth in the morning. Do not cut, crush or chew. 90 Capsule 2 Active Additional Information Patient not taking.Reported on 02/22/2024 Warfarin Sodium 2 MG Oral Tablet (Coumadin) TAKE ONE TO TWO TABLETS (2MG TO 4MG) BY MOUTH DAILY INSTRUCTED BY COUMADIN CLINIC 180 Tablet 3 Active Metoclopramide HCl 10 MG Oral Tablet (Reglan) Take 1 Tablet by mouth 3 times a day as needed for Nausea. 30 minutes before meals 30 Tablet Active Additional Information Patient not taking.Reported on 03/03/2024 Metoprolol Succinate ER 50 MG Oral Tablet Extended Release 24 Hour (toPROL XL) Take 1 Tablet by mouth in the morning and 1 Tablet before bedtime. Total of 75mg twice daily. 200 Tablet 3 Active Additional Information Patient taking differently:50 mg Oral BID (.AM/PM),Taking 50 mg three times a day, Reported on 02/22/2024 Loperamide HCl 2 MG Oral Tablet (Imodium A-D) Take 1 Tablet by mouth 4 times a day as needed for Diarrhea. Active Spironolactone 25 MG Oral Tablet (Aldactone) Take 1 Tablet by mouth in the morning. 90 Tablet 3 024 Active Torsemide 20 MG Oral Tablet (Demadex)Indications :Heart failure, systolic, due to CAD (HCC),Chronic diastolic heart failure (HCC),Paroxysmal atrial fibrillation (HCC) Taking 40 mg in morning and 20 mg in afternoon 270 Tablet 3 024 Active Empagliflozin 10 MG Oral Tablet (Jardiance) Take 1 Tablet by mouth in the morning. 90 Tablet 3 024 Active Hyoscyamine Sulfate 0.125 MG Oral Tablet (Levsin)Indications: Diarrhea, unspecified type Take 1 Tablet by mouth every 4 hours as needed for Cramping. for abdominal pain 40 Tablet 2 Active Potassium Chloride Tiffanie ER 20 MEQ Oral Tablet Extended Release Take 1 Tablet by mouth in the morning and 1 Tablet before bedtime. 60 Tablet 2 Active Additional Information Patient taking differently:20 mEq Oral BID (.AM/PM),Taking 20 in morning and 40 meq in evening, Reported on 03/22/2024 DAPTOmycin 500 MG Intravenous Solution Reconstituted (Cubicin) Administer 500 mg intravenously in the morning. Active Meropenem 1 GM Intravenous Solution Reconstituted (Merrem) Administer 1,000 mg intravenously in the morning and 1,000 mg at noon and 1,000 mg before bedtime. Active Betamethasone Dipropionate 0.05 % External Cream (Diprosone) Apply topically to affected area 2 times a day. To affected area. 45 g 3 Active Clotrimazole 1 % External Cream (Lotrimin) Apply topically to stump area 2 times a day for 14 days. 60 g 1 5 12:23 PM EST 024 Active Betamethasone Dipropionate 0.05 % External Cream (Diprosone) Apply topically to affected area twice a day. 45 g 3 4 3:57 PM EST 024 Active Vitamin D (Ergocalciferol) 1.25 MG (11021 UT) Oral Capsule (Drisdol) TAKE ONE CAPSULE BY MOUTH EVERY WEEK 12 Capsule Active Levothyroxine Sodium 88 MCG Oral Tablet (Levoxyl)Indications :Hypothyroidism, unspecified type TAKE 1 TABLET BY MOUTH EVERY MORNING at least 30 minutes before breakfast or other meds 100 Tablet Active Pregabalin 50 MG Oral Capsule (Lyrica)Indications: Diabetic polyneuropathy associated with type 2 diabetes mellitus (HCC),S/P BKA (below knee amputation) unilateral, left (HCC),Leg wound, right, initial encounter Take 1 Capsule by mouth in the morning and 1 Capsule at noon and 1 Capsule before bedtime. 90 Capsule Active Triamcinolone Acetonide 0.1 % External Lotion (Aristocort)Indicati ons:Other eczema Apply topically to affected area of dry skin on the lower legs and stump 2 times a day - avoid on open wounds. 60 mL 5 4 1:17 PM EST 024 Active tiZANidine HCl 4 MG Oral Tablet (Zanaflex) Take 1 Tablet by mouth every 8 hours as needed for Muscle spasms. 90 Tablet Active oxyCODONE HCl 10 MG Oral Tablet (Roxicodone)Indicati ons:S/P BKA (below knee amputation) unilateral, left (HCC),Diabetic polyneuropathy associated with type 2 diabetes mellitus (HCC),Leg wound, right, initial encounter Take 1 Tablet by mouth every 8 hours as needed for Pain, Severe. 45 Tablet 025 Active oxyCODONE HCl 10 MG Oral Tablet (Roxicodone)Indicati ons:S/P BKA (below knee amputation) unilateral, left (HCC),Diabetic polyneuropathy associated with type 2 diabetes mellitus (HCC),Leg wound, right, initial encounter Take 1 Tablet by mouth every 8 hours as needed for Pain, Severe. 45 Tablet 024 2024 Disconti nued(Ref ill) documented as of this encounter (statuses as of 05/05/2024) Active Problems Problem Noted Date Diagnosed Date [...] (07/04/2019): Added automatically from request for surgery [id number] 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 [...] as of this encounter (statuses as of 05/05/2024) Resolved Problems Problem Noted Date Diagnosed Date [...] Silent myocardial infarction 03/23/2013 11/08/2018 Accelerate Clinical Trial*[id number] 01/24/2013 05/16/2015 Overview (01/24/2013): ACCELERATE STUDY. Project # [id number], HEAD OF TRANSPORT LOGISTICS: Ben Hoover MD. CRC: DEBORAH Back. SUMMARY: To test the hypothesis that Evacetrapib 130 mg, in comparison to placebo, reduces the risk of major adverse coronary events in high-risk vascular disease patients. CONTACTS: During normal business hours, contact study staff at ; after hours Electric Mule Driver via the [facility] hospital sausage machine operator [phone]. 24-hour Global Study Helpline: [phone]. Lipid levels should not be ordered/obtained while this subject is in the Accelerate study. Lipids are being managed in a blinded fashion. If lipid levels are inadvertently obtained, it is important that test results are NOT provided to the patient, study doctor, irb compliance coordinator, or other study team members. Restricted meds while in the study: 1) niacin > 250 mg, 2) gemfibrozil with a potent [id number]. NINA on CPAP 06/28/2012 01/31/2020 Overview (06/28/2012): [...] as of this encounter (statuses as of 05/05/2024) Immunizations Name Administration Dates Next Due COVID-19 [...] 09/08/2023 Does the household have a re gular source of income? (Household - for ages [...] Telephone Encounter - David Maya DO - 05/05/2024 8:10 AM ESTSigned Prescriptions: Disp Refills oxyCODONE HCl 10 MG Oral Tablet (Roxicodon*45 Tab*0 Sig: Take 1 Tablet by mouth every 8 hours as needed for Pain, Severe. Authorizing Provider: DAVID MAYA * Telephone Encounter - Mariana Ocampo [facility] - 05/05/2024 6:41 AM EST Pending Prescriptions: Disp Refills oxyCODONE HCl 10 MG Oral Tablet (Roxicodon*45 Tab*0 Sig: Take 1 Tablet by mouth every 8 hours as needed for Pain, Severe. * Telephone Encounter - Mariana Ocampo [facility] - 05/05/2024 6:41 AM EST I have reviewed the patients controlled substance dispensing history in the Prescription Drug Monitoring Program in compliance with the [facility] regulations before prescribing a controlled substance. PDMP checked on 05/05/2024. Pending Prescriptions: Disp Refills oxyCODONE HCl 10 MG Oral Tablet (Roxicodo*45 Tab*0 Sig: Take 1 Tablet by mouth every 8 hours as needed for Pain, Severe. Last Visit: Visit date not found (in office), 04/22/2024 (telemedicine) Next Visit: 07/11/2024 Date medication was last filled: 04/22 Date medication is due for refill: 05/07/24 Pharmacy: [id number] [facility] Is this request for a controlled substance? Yes and Urine Drug Screen Not completed Toxicology results: No results found. However, due to the size of the patient record, not all encounters were searched.Please check Results Review for a complete set of results. Please approve if appropriate. Thank you, Mariana Ocampo, PharmD. Clinical Pharmacist Centralized Clinical Pharmacy Services ([facility]PS) 05/05/2024, 6:41 AM documented in this encounter Plan of Treatment Upcoming Encounters Date Type Department Care Team (Late st Contact Info) Description 05/10/2024 7:05 AM EST Laboratory Lab Mobile Phlebotomy [facility] [address] [facility] [place] [address] Mvmg, Gml Mobile Home Draw [address] [facility] [place] [address] 05/11/2024 6:00 AM EST Anticoagulation [facility]acy Services, Renee Wise [address] [place] [address] [place] [address] [facility], [address] [place] [address] 05/11/2024 2:00 PM EST Office Visit Infectious Disease [facility] [place] [address] [facility] [place] [address] Sherry Roy MD [address] [place] [address] 05/26/2024 10:30 AM EST Telemedicine [facility], [place] [address] [place] [address] Carolee Manriquez PA-C [address] [place] [address] Edna Baum, Community Health Cruise Director [address] [place] [address] 07/11/2024 9:50 AM EDT [facility] [address] [place] [phone] David Maya DO [address] [place] [address] Scheduled Procedures Name Priority Associated Diagnoses Date/Ti [...] 2023 01/23/2023, 01/23/2023, 02/12/2022, Additional history exists HbA1c 06/04/2024 12/03/2023, 07/26, 03/27/2023, Additional history exists Albumin/Creatinine Ratio 06/19/2024 024, 08/15/2022, 11/06/2021, Additional history exists Depression Monitoring 09/07/2024 09/08/2023 TSH 02/25/2025 02/26/2024, 10/0 06/2023, 09/24/2023, Additional history exists GFR 04/04/2025 04/04/2024, 1207/2023, 03/28/2024, Additional history exists DTap/Tdap Vaccines (3 - [...] BKA (below knee amputation) unilateral, left (HCC) Diabetic polyneuropathy associated with type 2 diabetes mellitus (HCC) Leg wound, right, initial encounter documented in this encounter Advance Directives * [...] the patient have Health Care Power of Interior Horticulturist? Yes, not currently available * Full Code [...] Relationshi p Communication Omar Lyle Adult Child [facility] [place] re Agent Xi Lyle Adult Child Health Care Agent Care Teams Pipe Cleaning Machine Operator Relationship Specialty Start Date End Date David Maya DO PCP - General Family Medicine 7/18/12 documented as of this encounter
--- OUTSIDE RECORDS SUMMARY | 2024-05-24 05:14 | External Medical Summary | Summary of Care ---
Author Name Unknown Organization [facility] Address [address] [facility] [place] [address] Phone [phone] Care Team Providers Care Wolf Hunter Name Role Phone Sherry Maya DO Primary Care Provider [phone] Reason for Visit * Reason Comments Dosage Adjustment Via Phone (anticoag Cl inic) Encounter Details Date Type Department Care Team (Late st Contact Info) Description 05/05/2024 6:45 AM EST Anticoagulation [facility], Renee Wise [address] [place] [address] [place] [address] [facility], [address] [place] [address] Anticoagulation management encounter* Allergies Active Allergy Reactions Criticality Noted Date Comments Benzonatate 12/08/2016 choking Keyanna Pedraza Other (Please comment) High 04/10/20 09 Choking documented as of this encounter (statuses as of 05/05/2024) Medications ONETOUCH LANCETS MISCIndications:DM type 2, not at goal ([facility]) 3 Box Dosing Unit 1 04/17/20 15 [...] Cap 5 03/16/20 17 Active Glucose Blood (Protez PharmaceuticalsTOUCH VERIO) STRP USE TO TEST BLOOD GLUCOSE 8 TIMES A DAY 800 Strip 3 03/18/20 19 Active Insulin Aspart 100 UNIT/ML Injection Solution Inject under the skin. FOR USE IN PUMP Active Straker TranslationsTouch Verio Flex System w/Device Kit Use as [...] unspecified chronicity,Heart failure, systolic, due to CAD ([facility]) Bariatric heavy duty walker- 2 wheels- please document patient's weight at 308 1 Each 02/08/20 Active DIURETIC TITRATION PLANIndications:Hear t failure, systolic, due to CAD (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 Project # [id number], SIEBEL DEVELOPER: Ben Hoover MD. CRC: DEBORAH Back. SUMMARY: To test the hypothesis that Evacetrapib 130 mg, in comparison to placebo, reduces the risk of major adverse coronary events in high-risk vascular disease patients. CONTACTS: During normal business hours, contact study staff at ; after hours Starcher And Tenter Range Feeder via the [facility] hospital substation operator helper generation [phone]. 24-hour Global Study Helpline: [phone]. Lipid levels should not be ordered/obtained while this subject is in the Accelerate study. Lipids are being managed in a blinded fashion. If lipid levels are inadvertently obtained, it is important that test results are NOT provided to the patient, study doctor, event coordinator marketing and sales, or other study team members. Restricted meds while in the study: 1) niacin > 250 mg, 2) gemfibrozil with a potent [id number]. NINA on CPAP 06/28/2012 01/31/2020 Overview (06/28/2012): [...] No 09/08/2023 Does the household have a [facility] source of income? (Household - for ages [...] Progress Notes * Jaimee Gandhi RPh - 05/05/2024 1:11 PM EST Date/Time Type Contact Phone/Fax 05/05/2024 01:13 PM EST by Jaimee Gandhi RPh Outgoing Ben Lyle (Self) Remove Spoke to Patient Pt now admitted to [facility]. INR still high, pt receiving Vit K to reverse today. ACC will follow up at discharge. Spoke with senior front end engineer at Dr Valdez office, no procedures scheduled. Jaimee Gandhi Rph, Pharm.D. Clinical Pharmacist Centralized Clinical Pharmacy Services ([facility]) [phone] 05/05/2024,1:16 PM documented in this encounter Plan of Treatment Upcoming Encounters Date Type Department Care Team (Late st Contact Info) Description 05/09/2024 6:45 AM EST Anticoagulation [facility], Renee Wise [address] [place] [address] [place] [address] [facility], [address] [place] [address] 05/11/2024 6:00 AM EST Anticoagulation Central[facility] Clinical Pharmacy Services, Renee Wise [address] [place] [address] [place] [address] [facility], [facility] [address] [place] [address] 05/11/2024 7:15 AM EST Laboratory Lab Mobile Phlebotomy [facility] [address] [place] [address] Mvmg, Gml Mobile Home Draw [address] [place] [address] 05/11/2024 2:00 PM EST Office Visit Infectious Disease [facility] [address] [facility] [address] Sherry Roy MD [address] [place] [address] 05/26/2024 10:30 AM EST Telemedicine [facility] [place] [address] [place] [address] Carolee Manriquez PA-C [address] [place] [address] Edna Baum, Community Health Gunner'S Mate [address] [place] [address] 07/11/2024 9:50 AM EDT Office Visit [facility] [place] [address] [facility] [place] [phone] Sherry Maya DO [address] [place] [address] Scheduled Procedures Name Priority Associated Diagnoses Date/Ti [...] 09/24/2023, Additional history exists GFR 04/04/2025 04/04/2024, 120 07/2023, 03/28/2024, Additional history exists DTap/Tdap Vaccines (3 [...] the patient have Health Care Power of Loss Prevention Detective? Yes, not currently available * Full Code [...] Relationship Healthcare Agent Relationshi p Communication Omar Ontiverosrett Adult Child [facility] [place] re Agent Xi Lyle Adult Child Health Care Agent Care Teams Wolf Hunter Relationship Specialty Start Date End Date Sherry Maya DO PCP - General Family Medicine 11/12/11 documented as of this encounter
--- OUTSIDE RECORDS SUMMARY | 2024-05-24 05:14 | External Medical Summary | Summary of Care ---
Author Name Unknown Organization [facility] Address [address] [facility] [place] [address] Phone [phone] Care Team Providers Care E Commerce Retailer Name Role Phone Sherry Maya DO Primary Care Provider [phone] Reason for Visit * Reason Comments Dosage Adjustment Via Phone (anticoag Cl inic) Encounter Details Date Type Department Care Team (Late st Contact Info) Description 05/09/2024 6:45 AM EST Anticoagulation Centralized Clinical Pharmacy Services, Renee Wise [address] [place] [address] [place] [address] [facility], [address] [place] [address] Anticoagulation management encounter* Allergies Active Allergy Reactions Criticality Noted Date Comments Benzonatate 12/08/2016 choking Keyanna Pedraza Other (Please comment) High 04/10/20 09 Choking documented as of this encounter (statuses as of 05/09/2024) Medications ONETOUCH LANCETS MISCIndications:DM type 2, not at goal ([facility]) 3 Box Dosing Unit 1 04/17/20 [...] Cap 5 03/16/20 17 Active Glucose Blood (DateMyFamily.comTOUCH VERIO) STRP USE TO TEST BLOOD GLUCOSE 8 TIMES A DAY 800 Strip 3 03/18/20 19 Active Insulin Aspart 100 UNIT/ML Injection Solution Inject under the skin. FOR USE IN PUMP Active eHealth TechnologiesTouch Verio Flex System w/Device Kit Use as [...] failure, systolic, due to CAD ([facility]) Bariatric heavy duty walker- 2 wheels- please document patient's weight at 308 1 Each 02/08/20 Active DIURETIC TITRATION PLANIndications:Hear t failure, systolic, due to CAD ([facility]) If no improvement on day 3, [...] 24 Active Vitamin D (Ergocalciferol) 1.25 MG (11145 UT) Oral Capsule (Drisdol) TAKE ONE CAPSULE [...] as of this encounter (statuses as of 05/09/2024) Active Problems Problem Noted Date Diagnosed Date [...] (07/04/2019): Added automatically from request for surgery [id number] 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 Project # [id number], MICA INSPECTOR: Ben Hoover MD. CRC: DEBORAH Back. SUMMARY: To test the hypothesis that Evacetrapib 130 mg, in comparison to placebo, reduces the risk of major adverse coronary events in high-risk vascular disease patients. CONTACTS: During normal business hours, contact study staff at ; after hours Faculty Instructor via the [facility] hospital incubator operator [phone]. 24-hour Global Study Helpline: [phone]. Lipid levels should not be ordered/obtained while [...] 250 mg, 2) gemfibrozil with a potent [id number]. NINA on CPAP 06/28/2012 01/31/2020 Overview (06/28/2012): [...] as of this encounter (statuses as of 05/09/2024) Immunizations Name Administration Dates Next Due COVID-19 [...] No 09/08/2023 Does the household have a [facility] source of income? (Household - [...] Progress Notes * Jaimee Gandhi RPh - 05/09/2024 2:29 PM EST 05/09/2024 02:34 PM EST by Jaimee Gandhi RPh Outgoing Ben Lyle (Self) Remove Left Message Spoke to [facility] today. Pt has been discharged. Unable to provider further info w/o releasefaxed over. LVM to pt to call back with any changes or concerns. GML scheduled for 05/11. [facility] will follow up once INR received. Jaimee Gandhi Rph, Pharm.D. Clinical Pharmacist Centralized Clinical Pharmacy Services ([facility]) [phone] 05/09/2024,2:35 PM documented in this encounter Plan of Treatment Upcoming Encounters Date Type Department Care Team (Late st Contact Info) Description 05/11/2024 7:15 AM EST Laboratory Lab Mobile Phlebotomy [facility] [address] [facility] [place], [place] [address] Mvmg, Gml Mobile Home Draw [address] [facility] [place] [address] 05/11/2024 2:00 PM EST Office Visit Infectious Disease [facility] [place] [address] [place] [address] Sherry Roy MD [address] [place] [address] 05/11/2024 6:00 PM EST Anticoagulation Centralized Clinical Pharmacy Services, Renee Wise [address] [place] [address] [place] [address] [facility], [address] [place] [address] 05/26/2024 10:30 AM EST Telemedicine [facility] [place] [address] [place] [address] Carolee Manriquez PA-C [address] [place] [address] Edna Baum, Community Health Tassel Maker [address] [place] [address] 07/11/2024 9:50 AM EDT Office Visit [facility] [address] [place] [phone] Sherry Maya DO [address] [place] [address] Scheduled Procedures Name Priority Associated Diagnoses Date/Ti [...] 02/12/2022, Additional history exists HbA1c 06/04/2024 12/03/2023, 04, 03/27/2023, Additional history exists Albumin/Creatinine Ratio 06/19/2024 [...] patient have Health Care Power of Attor palbo? No * Full Code Date Activated Date [...] patient have Health Care Power of Manager Wastewater? Yes, not currently available * Full Code [...] Agents on File Name Relationship Healthcare Agent Counts Include [facility] Maurymemo Mckeont Adult Child [facility] re Agent Xi Mckeont Adult Child [facility] Care Agent Care Teams E Commerce Retailer Relationship Specialty Start Date End Date Sherry Maya DO PCP - General Family Medicine 11/12/11 documented as of this encounter
--- OUTSIDE RECORDS SUMMARY | 2024-05-24 05:14 | External Medical Summary | Summary of Care ---
Author Name Unknown Organization [facility] Address [address] [facility] [place] [address] Phone [phone] Care Team Providers Care Plans Examiner Name Role Phone Sherry Maya DO Primary Care Provider [phone] Reason for Visit * Reason Comments Dosage Adjustment Via Phone (anticoag Cl inic) Encounter Details Date Type Department Care Team (Late st Contact Info) Description 05/04/2024 6:00 PM EST Anticoagulation Centralized Clinical Pharmacy Services, Renee Wise [address] [place] [address] [place] [address] [facility], [address] [place] [address] Anticoagulation management encounter* Allergies Active Allergy Reactions Criticality Noted Date Comments Benzonatate 12/08/2016 choking Keyanna Pedraza Other (Please comment) High 04/10/20 09 Choking documented as of this encounter (statuses as of 05/04/2024) Medications ONETOUCH LANCETS MISCIndications:DM type 2, not at goal ([facility]) 3 Box Dosing Unit 1 [...] Cap 5 03/16/20 17 Active Glucose Blood (Peloton TechnologyTOUCH VERIO) STRP USE TO TEST BLOOD GLUCOSE 8 TIMES A DAY 800 Strip 3 03/18/20 19 Active Insulin Aspart 100 UNIT/ML Injection Solution Inject under the skin. FOR USE IN PUMP Active WheelzTouch Verio Flex System w/Device Kit Use as [...] unspecified chronicity,Heart failure, systolic, due to CAD ([facility]) Bariatric heavy duty walker- 2 wheels- please document patient's weight at 308 1 Each 02/08/20 Active DIURETIC TITRATION PLANIndications:Hear t failure, systolic, due to CAD ([facility]) If no improvement on day [...] 24 Active Vitamin D (Ergocalciferol) 1.25 MG (30540 UT) Oral Capsule (Drisdol) TAKE ONE CAPSULE [...] as needed for Pain, Severe. 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 Project # [id number], FINANCIAL SERVICES EDUCATION CONSULTANT: Ben Hoover MD. CRC: DEBORAH Back. SUMMARY: To test the hypothesis that Evacetrapib 130 mg, in comparison to placebo, reduces the risk of major adverse coronary events in high-risk vascular disease patients. CONTACTS: During normal business hours, contact study staff at ; after hours Centrifugal Separator via the [facility] hospital tufting machine operator [phone]. 24-hour Global Study Helpline: [phone]. Lipid levels should not be ordered/obtained while this subject is in the Accelerate study. Lipids are being managed in a blinded fashion. If lipid levels are inadvertently obtained, it is important that test results are NOT provided to the patient, study doctor, activity coordinator, or other study team members. Restricted meds while in the study: 1) niacin > 250 mg, 2) gemfibrozil with a potent [id number]. NINA on CPAP 06/28/2012 01/31/2020 Overview (06/28/2012): [...] as of this encounter (statuses as of 05/04/2024) Immunizations Name Administration Dates Next Due COVID-19 [...] No 09/08/2023 Does the household have a [facility] hospit[facility] source of income? (Household - for [...] Progress Notes * Jaimee Gandhi RPh - 05/04/2024 12:[address] Mckenzie [phone]- Office closed today, called to confirm pt was advised to start holding Warfarin on 04/30. Spoke to lab and had specimen rerun 3 times. Unsure why INR is elevated if pt has been holding Warfarin since 04/30. Pt aware to hold today and tomorrow . Will reach out to Dr Mckenzie again tomorrow. Jaimee Gandhi Rph, Pharm.D. Clinical Pharmacist Centralized Clinical Pharmacy Services ([facility]) [phone] 05/04/2024,3:43 PM * Ninoska Johnston [facility] - 05/04/2024 12:26 PM EST Contacts Contact Date/Time Type Contact Phone/Fax 05/04/2024 12:17 PM EST Phone (Outgoing) Ben Lyle (Self) [phone] (M) Spoke to Patient Subjective Patient Findings Positives: Upcoming invasive procedure (PT stating that he held his Coumadin dose since 04/[address] Mckenzie due to needing a foot procedure. Call transfered to [facility] Jaelyn) Negatives: Signs/symptoms of thrombosis, Signs/symptoms of bleeding, Change in health, Change in alcohol use, Change in activity, Missed doses, Extra doses, Change in medications, Change in diet/appetite, Bruising Advised patient to contact Anticoagulation Clinic if any unusual bruising or bleeding, recent illness, changes in medication, or questions/concerns. PT/INR results, Coumadin dose instructions, and next PT/INR date communicated as noted by Pharmacist: Yes NINOSKA JOHNSTON CPhT 05/04/2024, 12:26 PM * Jaimee Gandhi [facility] - 05/04/2024 12:10 PM EST Images from the original note were not included. Coumadin Clinic (region specific) Objective Current Warfarin Dose As of 05/04/2024 Warfarin maintenance plan: 2 mg (2 mg x 1) every Mon, Sarah, Sat; 4 mg (2 mg x 2) all other days INR Result As of 05/04/2024 INR goal: 2.0-3.0 INR used for dosin.4 (05/04/2024) Assessment & Plan Warfarin Plan As of 05/04/2024 Full warfarin instructions: 05/04: Hold; 05/05: Hold; Otherwise 2 mg every Mon, Sarah, Sat; 4 mg all other days Next INR check: 05/10/2024 Repeat PT/INR in 1 week(s) Weekly dose: not changed Additional Dosing Information: Description GML MTuTh- AMIO (patient has 5mg and 1mg tabs) Tech to contact patient with dose instructions as noted. Jaimee Gandhi RPh 05/04/2024, 12:10 PM documented in this encounter Plan of Treatment Upcoming Encounters Date Type Department Care Team (Late st Contact Info) Description 05/05/2024 6:45 AM EST Anticoagulation Central[facility] Clinical Pharmacy Services, [address] [place] [address] [facility] [place] [address] 05/10/2024 7:05 AM EST Laboratory Lab Mobile Phlebotomy [facility] [address] [facility] [place] [address] Mv[facility], Gml Mobile Home Draw [address] [facility] [place] [address] 05/11/2024 6:00 AM EST Anticoagulation [facility], [address] [place] [address] [place] [address] 05/11/2024 2:00 PM EST Office Visit [facility] [address] [facility] [address] Sherry Roy MD [address] [place] [address] 05/26/2024 10:30 AM EST Telemedicine ising at [facility] [address] [place] [address] Carolee Manriquez PA-C [address] [place] [address] Edna Baum, Community Health Insurance Legal Assistant [address] [place] [address] 07/11/2024 9:50 AM EDT [facility] [address] [place] [phone] Sherry Maya DO [address] [place] [address] Scheduled Procedures Name Priority Associated Diagnoses Date/Ti [...] 09/24/2023, Additional history exists GFR 04/04/2025 04/04/2024, 12/0 07/2023, 03/28/2024, Additional history exists DTap/Tdap Vaccines [...] the patient have Health Care Power of Car Rental Deliverer? Yes, not currently available * Full Code [...] Relationshi p Communication Maurymemo Lyle Adult Child [facility] re Agent Xi Valdo Adult Child Health Care Agent Care Teams Plans Examiner Relationship Specialty Start Date End Date Sherry Maya DO PCP - General Family Medicine 11/12/11 documented as of this encounter
--- OUTSIDE RECORDS SUMMARY | 2024-05-24 05:14 | External Medical Summary | Summary of Care ---
Author Name Unknown Organization [facility] Address [address] [facility] [place] [address] Phone [phone] Care Team Providers Care Spa Host Name Role Phone Sherry Maya DO Primary Care Provider [phone] Reason for Visit * Reason Onset Date Comments Fax 05/05/2024 [facility] ommunity Encounter Details Date Type Department Care Team (Late st Contact Info) Description 05/05/2024 Telephone [facility] [address] [place] [address] Sherry Maya DO [address] [place] [address] Fax ([facility]) Allergies Active Allergy Reactions Criticality Noted Date Comments Benzonatate 12/08/2016 choking Keyanna Pedraza Other (Please comment) High 04/10/20 09 Choking documented as of this encounter (statuses as of 05/05/2024) Medications ONETOUCH LANCETS MISCIndications:DM type 2, not at goal ([facility]) 3 Box Dosing Unit 1 04/17/20 15 Active Nitroglycerin 0.4 MG Sublingual Tablet Sublingual Place under the tongue every 5 minutes as needed. Up to 3 in 15 minutes. 25 Tab 11 04/17/20 15 Active Magnesium Oxide 400 MG CapsuleIndications:H eart failure, systolic, due to CAD ([facility]),Automatic implantable cardioverter-defibri llator in situ,Chronic ischemic heart disease,Ischemic cardiomyopathy Take 1 Cap by mouth daily. 30 Cap 5 03/16/20 17 Active Glucose Blood (ideaTree - innovate | mentor | investTOUCH VERIO) STRP USE TO TEST BLOOD GLUCOSE 8 TIMES A DAY 800 Strip 3 03/18/20 19 Active Insulin Aspart 100 UNIT/ML Injection Solution Inject under the skin. FOR USE IN PUMP Active Card IsleToGreenRay Solar Verio Flex System w/Device Kit Use as directed. 01/26 Active Diclofenac Sodium 1 % External Gel (Voltaren)Indication s:Hand arthritis Apply topically to affected area daily. Apply to hands 100 g 05/31/19 Active polyethylene glycol 3350 119 gram PO POWD Take 119 g by mouth daily as needed for Constipation. May use up to 2-3 times per day as needed. 08/10/19 21 Active BiPAP every night at bedtime. Active WalkerIndications:Os teomyelitis of foot, left, acute ([facility]),Diabetic polyneuropathy associated with diabetes mellitus due to underlying condition ([facility]),Ulcer of right foot with necrosis of muscle ([facility]),Right knee pain, unspecified chronicity,Heart failure, systolic, due to CAD ([facility]) Bariatric heavy duty walker- 2 wheels- please document patient's weight at 308 1 Each 02/08/20 Active DIURETIC TITRATION PLANIndications:Hear t failure, systolic, due to CAD ([facility]) If no improvement on day 3, contact heart failure managing provider. 1 Each 03/11/20 21 Active Loratadine 10 MG Oral Tablet (Claritin) Take 1 Tablet by mouth daily. 100 Tablet 3 04/12/20 Active Metoprolol Succinate ER 25 MG Oral Tablet Extended Release 24 Hour (Toprol XL) Take 1 Tablet by mouth 2 times a day. 200 Tablet 3 04/12/20 21 Active Additional Information Patient not taking.Reported on 02/29/2024 Albuterol Sulfate 108 (90 Base) MCG/ACT Inhalation Aerosol Powder Breath ActivatedIndications :Asthma in remission Inhale 2 Puffs by mouth 4 times a day as needed for Wheezing. 3 Each 3 04/12/20 21 Active Aspirin 81 MG Oral Tablet ChewableIndications: Dyslipidemia, goal LDL below 100,DM type 2, not at goal ([facility]),Diabetic polyneuropathy associated with type 1 [...] and 1 Tablet before bedtime. 60 Tablet 09/16/19 23 Active Ammonium Lactate 12 % External Lotion (Lac-Hydrin)Indicati ons:S/P BKA (below knee amputation) unilateral, left (HCC) Apply topically to affected area as needed for Dry Skin. Apply to rash on legs 400 g 06/03/19 24 Active Omeprazole 20 MG Oral [...] crush or chew. 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 Project # [id number], FIBRE COMPOSITE TECHNICIAN: Ben Hoover MD. CRC: DEBORAH Back. SUMMARY: To test the hypothesis that Evacetrapib 130 mg, in comparison to placebo, reduces the risk of major adverse coronary events in high-risk vascular disease patients. CONTACTS: During normal business hours, contact study staff at ; after hours Content Checker via the [facility] hospital rotary veneer machine operator [phone]. 24-hour Global Study Helpline: [phone]. Lipid levels should not be ordered/obtained while this subject is in the Accelerate study. Lipids are being managed in a blinded fashion. If lipid levels are inadvertently obtained, it is important that test results are NOT provided to the patient, study doctor, residential program coordinator, or other study team members. Restricted meds while in the study: 1) niacin > 250 mg, 2) gemfibrozil with a potent [id number]. NINA on CPAP 06/28/2012 01/31/2020 Overview (06/28/2012): [...] on file Are you (or your family) amrquez eless or worried that you might be [...] encounter Miscellaneous Notes * Telephone Encounter - Cassi Toro LPN - 05/05/2024 12:04 PM EST Received Fax for BFPROVIDERS: Dr. Sherry Maya ORDER received from [facility] and FAXED documented in this encounter Plan of Treatment Upcoming Encounters Date Type Department Care Team (Late st Contact Info) Description 05/11/2024 6:00 AM EST Anticoagulation Centralized Clinical Pharmacy Services, Renee Wise [address] [place] [address] [place] [address] [place] [address] 05/11/2024 7:15 AM EST Laboratory Lab Mobile Phlebotomy [facility] [address] [place] [address] Mvmg, Gml Mobile Home Draw [address] [place] [address] 05/11/2024 2:00 PM EST Office Visit Infectious Disease [facility] [place] [address] [facility] [place] [address] Sherry Roy MD [address] [place] [address] 05/26/2024 10:30 AM EST Telemedicine [facility] [place] [address] [place] [address] Carolee Manriquez PA-C [address] [place] [address] Edna Baum, Community Health Cable Stretcher And Tester [address] [place] [address] 07/11/2024 9:50 AM EDT Office Visit [facility] [address] [place] [phone] Sherry Maya DO [address] [place] [address] Scheduled Procedures Name Priority Associated Diagnoses Date/Ti [...] the patient have Health Care Power of Floor Waxer? Yes, not currently available * Full Code [...] Relationship Healthcare Agent Relationshi p Communication Omar Mckeont Adult Child [facility] re Agent Xi [facility] Care Agent Care Teams Spa Host Relationship Specialty Start Date End Date Sherry Maya DO PCP - General Family Medicine 11/12/11 documented as of this encounter"
--- OUTSIDE RECORDS SUMMARY | 2024-05-24 05:14 | External Medical Summary ---
Author Name Unknown Address Unknown Organization K0G:[facility] [address] [place] [address] Laboratory Report Ordering Provider Test Date Status ALIE ROPER 05/04/2024 06:40:00 Final Standing order for pt/inr. < br/>Please draw pt/inr every 1 to 4 weeks as requested
Results to [facility]

Warfarin Therapy
INR: 2.0-3.0 conventional anticoagulation
INR: 2.5-3.5 high intensity anticoagulation Observation Date Value Abnormality Reference (Units ) Status PT 05/04/2024 06:40:00 50.4 Above high normal 11 .6-15.2 (seconds) Final Results rechecked. INR 05/04/2024 06:40:00 5.4 Above upper panic li mits 0.8-1.2 Final Results rechecked. Performing Location [facility] [address] [place] [address]
--- OUTSIDE RECORDS SUMMARY | 2024-05-24 05:15 | External Medical Summary | Summary of Care ---
Author Name Unknown Organization [facility] Address [address] [facility] [place] [address] Phone [phone] Care Team Providers Care Gravity Manager Name Role Phone Sherry Maya DO Primary Care Provider + [phone] Encounter Details Date Type Department Care Team (Late st Contact Info) Description 01/29/2024 Telephone [facility] DEPT CLOSED - 04/14/24 [address] [facility] [place] [phone] Sherry Maya DO [address] [facility] [place] [id number] Allergies Active Allergy Reactions Criticality Noted Date Comments Benzonatate 12/08/2016 choking Keyanna Pedraza Other (Please comment) High 04/10/20 09 Choking documented as of this encounter (statuses as of 04/29/2024) Medications ONETOUCH LANCETS MISCIndications:DM type 2, not at goal (HCC) 3 Box Dosing Unit 1 015 Active Nitroglycerin 0.4 MG Sublingual Tablet Sublingual Place under the tongue every 5 minutes as needed. Up to 3 in 15 minutes. 25 Tab 11 015 Active Magnesium Oxide 400 MG CapsuleIndications: Heart failure, systolic, due to CAD (HCC),Automatic implantable cardioverter-defibr illator in situ,Chronic ischemic heart disease,Ischemic cardiomyopathy Take 1 Cap by mouth daily. 30 Cap 5 Active Glucose Blood (ONETOUCH VERIO) STRP USE TO TEST BLOOD GLUCOSE 8 TIMES A DAY 800 Strip 3 Active Insulin Aspart 100 UNIT/ML Injection Solution Inject under the skin. FOR USE IN PUMP Active OneTouch Verio Flex System w/Device Kit Use as directed. Active Diclofenac Sodium 1 % External Gel (Voltaren)Indicatio ns:Hand arthritis Apply topically to affected area daily. Apply to hands 100 g Active polyethylene glycol 3350 119 gram PO POWD Take 119 g by mouth daily as needed for Constipation. May use up to 2-3 times per day as needed. Active BiPAP every night at bedtime. 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 3 Each 3 Active Aspirin 81 MG Oral Tablet ChewableIndications :Dyslipidemia, goal LDL below 100,DM type 2, not [...] 1 Active Fluticasone Propionate 50 MCG/ACT Nasal SuspensionIndicatio ns:Otalgia, right,Dysfunction of Eustachian tube, right,Chronic rhinitis Administer into each nostril 2 Sprays in the morning. Administer 2 Sprays into each nostril daily.. 9.9 mL 10 Active Additional Information Patient not taking.Reported on 03/03/2024 Mupirocin 2 % External Ointment (Bactroban) Active Ferrous Sulfate 325 (65 Fe) MG Oral Tablet (Feosol)Indications :Other iron deficiency anemia Take 1 Tablet by mouth in the morning and 1 Tablet before bedtime. 60 Tablet 11 023 Active Ammonium Lactate 12 % External Lotion (Lac-Hydrin)Indicat ions:S/P BKA (below knee amputation) unilateral, left (HCC) Apply topically to affected area as needed for Dry Skin. Apply to rash on legs 400 g 1 024 Active Omeprazole 20 MG Oral Capsule Delayed Release (PriLOSEC)Indicatio ns:Heart burn Take 1 Capsule by mouth in the morning. 100 Capsule 1 024 Active Atorvastatin Calcium 80 MG Oral Tablet (Lipitor)Indication s:Dyslipidemia, goal LDL below 100 Take 1 Tablet [...] cut, crush or chew. 90 Capsule 2 024 Active Additional Information Patient not taking.Reported [...] 024 Active Torsemide 20 MG Oral Tablet (Demadex)Indication s:Heart failure, systolic, due to CAD (HCC),Chronic diastolic heart failure (HCC),Paroxysmal atrial fibrillation (HCC) Taking 40 mg in morning and 20 mg in afternoon 270 Tablet 3 024 Active Empagliflozin 10 MG Oral Tablet (Jardiance) Take 1 Tablet by mouth in the morning. 90 Tablet 3 024 Active Hyoscyamine Sulfate 0.125 MG Oral Tablet (Levsin)Indications :Diarrhea, unspecified type Take 1 Tablet by mouth every 4 hours as needed for Cramping. for abdominal pain 40 Tablet 2 Active Levothyroxine Sodium 88 MCG Oral Tablet (Levoxyl)Indication s:Hypothyroidism, unspecified type TAKE ONE TABLET BY MOUTH IN THE MORNING AT LEAST 30 MINS PRIOR TO BREAKFAST OR OTHER MEDS 100 Tablet 5 023 2023 Discontinued Triamcinolone Acetonide 0.1 % External Lotion (Aristocort)Indicat ions:Other eczema Apply topically to affected area 2 times a day. To dry skin on the lower legs and stump. Avoid on open wounds 60 mL 5 024 2023 Discontinued(R efill) Potassium Chloride Tiffanie ER 20 MEQ Oral Tablet Extended Release Take 1 Tablet by mouth in the morning and 1 Tablet before bedtime. 60 Tablet 2 024 2023 Discontinued(R efill) oxyCODONE HCl 5 MG Oral Tablet (Oxy IR) Take 1 Tablet by mouth every 8 hours as needed for Pain, Severe. 12 Tablet 024 2023 Discontinued(P atient preference/dis continuation) Pregabalin 50 MG Oral Capsule (Lyrica)Indications :Diabetic polyneuropathy associated with type 2 diabetes mellitus (HCC),S/P BKA (below knee amputation) unilateral, left (HCC),Leg wound, right, initial encounter Take 1 Capsule by mouth in the morning and 1 Capsule at noon and 1 Capsule before bedtime. 60 Capsule 024 2023 Discontinued(R efill) oxyCODONE HCl 10 MG Oral Tablet (Roxicodone)Indicat ions:Diabetic polyneuropathy associated with type 2 diabetes mellitus (HCC),S/P BKA (below knee amputation) unilateral, left (HCC),Leg wound, right, initial encounter Take 1 Tablet by mouth every 6 hours as needed for Pain, Severe. 20 Tablet 024 2023 Discontinued(R efill) Vitamin D (Ergocalciferol) 1.25 MG (93742 UT) Oral Capsule (Drisdol) TAKE ONE CAPSULE BY MOUTH EVERY WEEK 12 Capsule 024 2023 Discontinued documented as of this encounter (statuses as of 04/29/2024) Active Problems Problem Noted Date Diagnosed Date Ulcer of right foot with necrosis of [...] (07/04/2019): Added automatically from request for surgery [id number] 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 [...] as of this encounter (statuses as of 04/29/2024) Resolved Problems Problem Noted Date Diagnosed Date [...] Silent myocardial infarction 03/23/2013 11/08/2018 Accelerate Clinical Trial*[id number] 01/24/2013 05/16/2015 Overview (01/24/2013): ACCELERATE STUDY. Project # [id number], LETTER SORTING MACHINE OPERATOR: Ben Hoover MD. CRC: DEBORAH Back. SUMMARY: To test the hypothesis that Evacetrapib 130 mg, in comparison to placebo, reduces the risk of major adverse coronary events in high-risk vascular disease patients. CONTACTS: During normal business hours, contact study staff at ; after hours Steward/Stewardess Banquet via the [facility] wastewater plant operator [phone]. 24-hour Global Study Helpline: [phone]. Lipid levels should not be ordered/obtained while [...] 250 mg, 2) gemfibrozil with a potent [id number]. NINA on CPAP 06/28/2012 01/31/2020 Overview (06/28/2012): [...] as of this encounter (statuses as of 04/29/2024) Immunizations Name Administration Dates Next Due COVID-19 [...] encounter Miscellaneous Notes * Telephone Encounter - Jaimee Okeefe MED ASSIST - 01/29/2024 9:51 AM EDT Received Fax for BFPROVIDERS: Dr. Sherry Maya PT [facility] Plan of Treatment Upcoming Encounters Date Type Department Care Team (Late st Contact Info) Description 05/05/2024 7:05 AM EST Laboratory Lab Mobile Phlebotomy [facility] [address] [facility] [place] [address] [facility], [facility] Mobile Home Draw [address] [place] [address] 05/06/2024 6:00 AM EST Anticoagulation [facility], [address] [place] [address] [facility], [address] [place] [address] 05/11/2024 2:00 PM EST Office Visit Infectious Disease [facility] [address] [facility] [place] [address] Sherry Roy MD [address] [place] [address] 05/26/2024 10:30 AM EST Telemedicine [facility] [place] [address] [place] [address] Carolee Manriquez PA-C [address] [place] [address] Edna Baum, Community Health Experimental Psychologist [address] [place] [address] 07/11/2024 9:50 AM EDT Office Visit [facility] [place] [address] [place] [phone] Sherry Maya DO [address] [place] [address] Scheduled Procedures Name Priority Associated Diagnoses Date/Ti [...] 2023 01/23/2023, 01/23/2023, 02/12/2022, Additional history exists CKD PHOS USE SMARTSET 05934 06/03/202410/2023, 11/06/2021, 09/12/2020, Additional history exists HbA1c 06/04/2024 12/03/2023, 07/26, 03/27/2023, Additional history exists Albumin/Creatinine Ratio 06/19/20242 024, 08/15/2022, 11/06/2021, Additional history exists Depression Monitoring 09/07/2024 09/08/2023 GFR 10/03/2024 04/04/2024, 07/2023, 03/28/2024, Additional history exists TSH 02/25/2025 02/26/2024, 1006/2023, 09/24/2023, Additional history exists CKD HGB USE SMARTSET 65776 04/04/202504/04, 03/30/2024, 03/28/2024, Additional history exists DTap/Tdap Vaccines (3 [...] the patient have Health Care Power of Salvage Laborer? Yes, not currently available * Full Code [...] Relationshi p Communication Omar Lyle Adult Child [facility] Care re Agent Xi Lyle Adult [facility] Care Agent Care Teams Gravity Manager Relationship Specialty Start Date End Date Sherry Maya DO PCP - General Family Medicine 11/12/11 documented as of this encounter
--- OUTSIDE RECORDS SUMMARY | 2024-05-24 05:15 | External Medical Summary | Summary of Care ---
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 Name Role Phone Sherry Maya DO Primary Care Provider + [phone] Encounter Details Date Type Department Care Team (Late st Contact Info) Description 04/22/2024 4:00 PM EST [facility] [address] [place] [phone] Kwame Parks MD [address] [facility] [place] [address] Other chronic pain*; Neck pain; Fall, initial encounter; Thoracic back pain, unspecified back pain laterality, unspecified chronicity; S/P BKA (below knee amputation) unilateral, left (HCC); Diabetic polyneuropathy associated with type 2 diabetes mellitus ([facility]); Leg wound, right, initial encounter; Abdominal pain, generalized; Gallstones; 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); Non-pressure chronic ulcer of right lower leg, unspecified ulcer stage ([facility]); Osteomyelitis of right foot, unspecified type ([facility]); Morbid (severe) obesity due to excess calories (HCC) Allergies Active Allergy Reactions Criticality Noted Date Comments Benzonatate 12/08/2016 choking Keyanna Pedraza Other (Please comment) High 04/10/20 09 Choking documented as of this encounter (statuses as of 05/02/2024) Medications ONETOUCH LANCETS MISCIndications:DM type 2, not at goal ([facility]) 3 Box Dosing Unit 1 Active Nitroglycerin 0.4 MG Sublingual Tablet Sublingual Place under the tongue every 5 minutes as needed. Up to 3 in 15 minutes. 25 Tab 11 Active Magnesium Oxide 400 MG CapsuleIndications:H eart failure, systolic, due to CAD ([facility]),Automatic implantable cardioverter-defibri llator in situ,Chronic ischemic heart disease,Ischemic cardiomyopathy Take 1 Cap by mouth daily. 30 Cap 5 017 Active Glucose Blood ([employer] VERIO) STRP USE TO TEST BLOOD GLUCOSE 8 TIMES A DAY 800 Strip 3 Active Insulin Aspart 100 UNIT/ML Injection Solution Inject under the skin. FOR USE IN PUMP Active [employer] Verio Flex System w/Device Kit Use as [...] Active WalkerIndications:Os teomyelitis of foot, left, acute ([facility]),Diabetic polyneuropathy associated with diabetes mellitus due to underlying condition ([facility]),Ulcer of right foot with necrosis of muscle ([facility]),Right knee pain, unspecified chronicity,Heart failure, systolic, due to CAD ([facility]) Bariatric heavy duty walker- 2 wheels- please document patient's weight at 308 1 Each Active DIURETIC TITRATION PLANIndications:Hear t failure, systolic, due to CAD ([facility]) If no improvement on day 3, contact [...] moderate reaction (infusion reaction protocol)). 2 Tablet Active Meclizine HCl 12.5 MG Oral Tablet [...] and 1 Tablet before bedtime. 60 Tablet Active Ammonium Lactate 12 % External Lotion (Lac-Hydrin)Indicati ons:S/P BKA (below knee amputation) unilateral, left (HCC) Apply topically to affected area as needed for Dry Skin. Apply to rash on legs 400 g Active Omeprazole 20 MG Oral Capsule Delayed Release (PriLOSEC)Indication s:Heart burn Take 1 Capsule by mouth in the morning. 100 Capsule 1 Active Atorvastatin Calcium 80 MG Oral Tablet [...] INSTRUCTED BY [facility]ADIN CLINIC 180 Tablet 3 024 Active Metoclopramide HCl 10 MG Oral Tablet [...] of 75mg twice daily. 200 Tablet 3 024 Active Additional Information Patient taking differently:50 mg [...] Cramping. for abdominal pain 40 Tablet 2 08/05/2 024 Active Potassium Chloride Tiffanie ER 20 MEQ [...] at noon and 1,000 mg before bedtime. 024 Active Betamethasone Dipropionate 0.05 % External Cream (Diprosone) Apply topically to affected area 2 times a day. To affected area. 45 g 3 024 Active Clotrimazole 1 % External Cream (Lotrimin) Apply topically to stump area 2 times a day for 14 days. 60 g 1 5 12:23 PM EST 024 Active Betamethasone Dipropionate 0.05 % External Cream (Diprosone) Apply topically to affected area twice a day. 45 g 3 4 3:57 PM EST 024 Active Vitamin D (Ergocalciferol) 1.25 MG (62893 UT) Oral Capsule (Drisdol) TAKE ONE CAPSULE [...] 60 mL 5 4 1:17 PM EST Active tiZANidine HCl 4 MG Oral Tablet [...] as needed for Pain, Severe. 45 Tablet Active oxyCODONE HCl 10 MG Oral Tablet (Roxicodone)Indicati ons:S/P BKA (below knee amputation) unilateral, left (HCC),Diabetic polyneuropathy associated with type 2 diabetes mellitus (HCC),Leg wound, right, initial encounter Take 1 Tablet by mouth every 6 hours as needed for Pain, Severe. 60 Tablet 024 2023 Disconti nued(Ref ill) documented as of this encounter (statuses as of 05/02/2024) Active Problems Problem Noted Date Diagnosed Date [...] (07/04/2019): Added automatically from request for surgery [id number] 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 [...] as of this encounter (statuses as of 05/02/2024) Resolved Problems Problem Noted Date Diagnosed Date [...] Silent myocardial infarction 03/23/2013 11/08/2018 Accelerate Clinical Trial*[id number] 01/24/2013 05/16/2015 Overview (01/24/2013): ACCELERATE STUDY. Project # [id number], MECHANICAL OPERATOR: Ben Hoover MD. CRC: DEBORAH Back. SUMMARY: To test the hypothesis that Evacetrapib 130 mg, in comparison to placebo, reduces the risk of major adverse coronary events in high-risk vascular disease patients. CONTACTS: During normal business hours, contact study staff at ; after hours Airport Operations Officer via the [facility] hospital chief hydroelectric station operator [phone]. 24-hour Global Study Helpline: [phone]. Lipid levels should not be ordered/obtained while this subject is in the Accelerate study. Lipids are being managed in a blinded fashion. If lipid levels are inadvertently obtained, it is important that test results are NOT provided to the patient, study doctor, litigation coordinator, or other study team members. Restricted meds while in the study: 1) niacin > 250 mg, 2) gemfibrozil with a potent [id number]. NINA on CPAP 06/28/2012 01/31/2020 Overview (06/28/2012): [...] as of this encounter (statuses as of 05/02/2024) Immunizations Name Administration Dates Next Due COVID-19 [...] documented in this encounter Progress Notes * Kwame Parks MD - 04/22/2024 4:36 PM EST Subjective Ben Lyle is a 58 year old male. No chief complaint on file. HPI: Patient location: HOME. I was in a hospital or clinic location. After connecting through [employer],patient was verified with two unique identifiers. Patient (or authorized legal sales representatives) was then informed that this was a Telemedicine visit and being conducted confidentially over secure lines. Methods to assure confidentiality were taken. Patient acknowledged consent and understanding of pr ivacy and security of the Telemedicine visit. The patient agreed to participate. Here to discuss about worse pain , back , neck pain from fall recently Known chronic pain, foot partial amputation due to bone infection Type 2 DM , morbid obesity , neuropathy , Still glucose is high , up and down per pt Chronic leg, foot wound, f/u with ID, wound clinic, started healing recently Still has moderate to severe pain daily Will refill his oxycodone pain med prn use And c/o upper RUQ pain Known gallstones in the past Will get KUB and US test PMH: Patient Active Problem List Diagnosis DM, UNCONTROLLED, TYPE II Diabetic polyneuropathy (HCC) Testicular hypofunction ED Dyslipidemia, goal LDL below 100 Obesity hypoventilation syndrome (HCC) Vitamin D deficiency CHR ISCHEMIC HRT OLD ANTERIOR INFARCT AGE INDETERMINATE S/P SURGERY FOR SHOULDER IMPINGEMENT SYNDROME 11/04 ASTHMA, IN REMISSION Ischemic cardiomyopathy Automatic implantable cardioverter-defibrillator in situ Microalbuminuria Hypothyroidism HTN, goal below 140/90 Heart failure, systolic, due to CAD (HCC) Family history of pancreatic cancer History of osteomyelitis PHT (pulmonary hypertension) (HCC) Insomnia Type 2 diabetes mellitus (HCC) Non-pressure chronic ulcer of unspecified part of right lower leg with unspecified severity ([facility]) VT (ventricular tachycardia) (HCC) NINA (obstructive sleep apnea) Atrial fibrillation ([facility]) Insulin pump status S/P BKA (below knee amputation) unilateral, left (HCC) Major depressive disorder, recurrent, mild (HCC) Type 2 diabetes mellitus with diabetic peripheral angiopathy without gangrene (HCC) Paroxysmal atrial fibrillation (HCC) Insufficient social support Anemia Anxiety Atherosclerosis of coronary artery Chronic diastolic heart failure (HCC) Chronic pain Closed fracture of fifth metatarsal bone Cor pulmonale, chronic (HCC) Depression Diabetic neuropathy (HCC) Diabetic retinopathy (HCC) Edema Elevated troponin level History of diabetic ulcer of foot Numbness Peripheral arterial disease (HCC) Right heart failure (secondary to left heart failure) (HCC) ICD (implantable cardioverter-defibrillator) battery depletion Statin intolerance Status post shoulder surgery Venous stasis ulcer (HCC) Mass of leg, right Other persistent atrial fibrillation (HCC) Body mass index (BMI) of 50.0 to 59.9 in adult (HCC) Morbid (severe) obesity due to excess calories (HCC) 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) Osteomyelitis (HCC) Current Outpatient Medications Medication Sig Dispense Refill tiZANidine HCl 4 MG Oral Tablet (Zanaflex) Take 1 Tablet by mouth every 8 hours as needed for Muscle spasms. 90 Tablet 0 oxyCODONE HCl 10 MG Oral Tablet (Roxicodone) Take 1 Tablet by mouth every 8 hours as needed for Pain, Severe. 45 Tablet 0 ONETOUCH LANCETS MISC 3 Box Dosing Unit 1 Nitroglycerin 0.4 MG Sublingual Tablet Sublingual Place under the tongue every 5 minutes as needed.Up to 3 in 15 minutes. (Patient not taking: Reported on 03/03/2024) 25 Tab 11 Magnesium Oxide 400 MG Capsule Take 1 Cap by mouth daily. 30 Cap 5 Glucose Blood ([employer] VERIO) STRP USE TO TEST BLOOD GLUCOSE 8 TIMES A DAY 800 Strip 3 Insulin Aspart 100 UNIT/ML Injection Solution Inject under the skin. FOR USE IN PUMP 24[employer] Verio Flex System w/Device Kit Use as [...] Tablet by mouth daily. 100 Tablet 3 Metoprolol Succinate ER 25 MG Oral Tablet Extended Release 24 Hour (Toprol XL) Take 1 Tablet by mouth 2 times a day. (Patient not taking: Reported on 02/29/2024) 200 Tablet 3 Albuterol Sulfate 108 (90 [...] reaction (infusion reaction protocol)). 2 Tablet 11 Meclizine HCl 12.5 MG Oral Tablet (Antivert) Take by mouth 1 Tablet as needed in the morning AND 1 Tablet as needed at noon AND 1 Tablet as needed in the evening for Dizziness. 30 Tablet 1 Fluticasone Propionate 50 MCG/ACT Nasal Suspension Administer into each nostril 2 Sprays in the morning. Administer 2 Sprays into each nostril daily.. (Patient not taking: Reported on 03/03/2024) 9.9 mL 10 Mupirocin 2 % External Ointment (Bactroban) Ferrous Sulfate 325 (65 Fe) MG Oral Tablet (Feosol) Take 1 Tablet by mouth in the morning and 1 Tablet before bedtime. 60 Tablet 11 Ammonium Lactate 12 % External Lotion (Lac-Hydrin) Apply topically to affected area as needed for Dry Skin. Apply to rash on legs 400 g 1 Omeprazole 20 MG Oral Capsule Delayed Release (PriLOSEC) Take 1 Capsule by mouth in the morning. 100 Capsule 1 Atorvastatin Calcium 80 MG Oral Tablet (Lipitor) Take 1 Tablet by mouth in the morning. (Patient not taking: Reported on 03/03/2024) 100 Tablet 3 metOLazone 2.5 MG Oral Tablet (Zaroxolyn) Take 1 Tablet by mouth once a day on Thursday, Thursday, and Thursday only. 90 Tablet 1 DULoxetine HCl 20 MG Oral Capsule Delayed Release Particles (duloxetine) Take 1 Capsule by mouth inthe morning. Do not cut, crush or chew. (Patient not taking: Reported on 02/22/2024) 90 Capsule 2 Warfarin Sodium 2 MG Oral Tablet (Coumadin) TAKE ONE TO TWO TABLETS (2MG TO 4MG) BY MOUTH DAILY INSTRUCTED BY COUMADIN CLINIC 180 Tablet 3 Metoclopramide HCl 10 MG Oral Tablet (Reglan) Take 1 Tablet by mouth 3 times a day as needed for Nausea. 30 minutes before meals (Patient not taking: Reported on 03/03/2024) 30 Tablet 0 Metoprolol Succinate ER 50 MG Oral Tablet Extended Release 24 Hour (toPROL XL) Take 1 Tablet by mouth in the morning and 1 Tablet before bedtime. Total of 75mg twice daily. (Patient taking differently: Take 1 Tablet by mouth in the morning and 1 Tablet before bedtime. Taking 50 mg three times a day.) 200 Tablet 3 Loperamide HCl 2 MG Oral Tablet (Imodium A-D) Take 1 Tablet by mouth 4 times a day as needed for Diarrhea. Spironolactone 25 MG Oral Tablet (Aldactone) Take 1 Tablet by mouth in the morning. 90 Tablet 3 Torsemide 20 MG Oral Tablet (Demadex) Taking 40 mg in morning and 20 mg in afternoon 270 Tablet 3 Empagliflozin 10 MG Oral Tablet (Jardiance) Take 1 Tablet by mouth in the morning. 90 Tablet 3 Hyoscyamine Sulfate 0.125 MG Oral Tablet (Levsin) Take 1 Tablet by mouth every 4 hours as needed for Cramping. for abdominal pain 40 Tablet 2 Potassium Chloride Tiffanie ER 20 MEQ Oral Tablet Extended Release Take 1 Tablet by mouth in the morning and 1 Tablet before bedtime. (Patient taking differently: Take 1 Tablet by mouth in the morning and 1 Tablet before bedtime. Taking 20 in morning and 40 meq in evening.) 60 Tablet 2 DAPTOmycin 500 MG Intravenous Solution Reconstituted (Cubicin) Administer 500 mg intravenously in the morning. Meropenem 1 GM Intravenous Solution Reconstituted (Merrem) Administer 1,000 mg intravenously in themorning and 1,000 mg at noon and 1,000 mg before bedtime. Betamethasone Dipropionate 0.05 % External Cream (Diprosone) Apply topically to affected area 2 times a day. To affected area. 45 g 3 Clotrimazole 1 % External Cream (Lotrimin) Apply topically to stump area 2 times a day for 14 days.60 g 1 Betamethasone Dipropionate 0.05 % External Cream (Diprosone) Apply topically to affected area twicea day. 45 g 3 Vitamin D (Ergocalciferol) 1.25 MG (44554 UT) Oral Capsule (Drisdol) TAKE ONE CAPSULE BY MOUTH EVERY WEEK 12 Capsule 0 Levothyroxine Sodium 88 MCG Oral Tablet (Levoxyl) TAKE 1 TABLET BY MOUTH EVERY MORNING at least 30 minutes before breakfast or other meds 100 Tablet 0 Pregabalin 50 MG Oral Capsule (Lyrica) Take 1 Capsule by mouth in the morning and 1 Capsule at noonand 1 Capsule before bedtime. 90 Capsule 0 Triamcinolone Acetonide 0.1 % External Lotion (Aristocort) Apply topically to affected area of dry skin on the lower legs and stump 2 times a day - avoid on open wounds. 60 mL 5 No current facility-administered medications for this visit. Past Medical History: Diagnosis Date Acquired hypothyroidism Acute deep vein thrombosis (DVT) of proximal vein of left lower extremity ([facility]) 07/03/2020 Acute hypoxemic respiratory failure ([facility]) 07/29/2021 Acute renal failure superimposed on chronic kidney disease ([facility]) 07/29/2021 CHATO (acute kidney injury) ([facility]) 01/04/2017 Last Assessment & Plan: Sec to Cor pulmonale and v tach-- improving --avoid nephrotoxic agents --IVF's held d/t fluid overload - willmonitor closely --daily BMP Amputated great toe of right foot ([facility]) 06/28/2019 Atrial fibrillation ([facility]) Bacteremia due to group B Streptococcus 07/29/2021 Cellulitis 07/29/2021 Cellulitis of right lower extremity 11/09/2009 DM type 2, not at goal ([facility]) Dyslipidemia, goal LDL below 70 HFrEF (heart failure with reduced ejection fraction) ([facility]) HTN, goal below 140/80 Hyperglycemia due to type 2 diabetes mellitus ([facility]) 07/29/2021 Hypokalemia 07/29/2021 Hypomagnesemia 07/29/2021 Insulin pump status 01/11/2021 Adams fracture 07/29/2021 Malfunction of implantable defibrillator ventricular (ICD) lead 07/29/2021 CO (myocardial infarction) ([facility]) Non-healing surgical wound 07/29/2021 NINA treated with BiPAP Osteomyelitis of left foot ([facility]) 01/08/2021 Pneumonia due to COVID-19 virus 07/29/2021 Right foot ulcer ([facility]) 12/05/2019 SARS-CoV-2 positive 07/29/2021 Stage 3b chronic kidney disease ([facility]) 03/05/2020 Per CKD protocol Ventricular tachycardia ([facility]) 06/09/2019 Volume overload 07/29/2021 Volume overload state of heart 07/29/2021 Past Surgical History: Procedure Laterality Date AMPUTATION OF LOWER LEG Left 01/15/2021 AMPUTATION LEG THROUGH TIBIA AND FIBULA performed by Heron Hill MD at OR [facility] BONE DEBRIDEMENT, FIRST 20 CM2 Left 12/05/2019 DEBRIDEMENT SKIN SUBCUTANEOUS TISSUE MUSCLE AND BONE performed by Heron Hill MD at OR [facility] COLONOSCOPY, DIAGNOSTIC (RECTUM) 04/03/2015 TVA polyps, diverticulosis, repeat 3 yrs/[facility] COLONOSCOPY, DIAGNOSTIC (RECTUM) 11/13/2015 adenomatous polyp, diverticulosis, repeat 3 yrs/[facility] COLONOSCOPY, DIAGNOSTIC (RECTUM) 06/01/2020 adenomatous polyps, diverticulosis, poor prep, repeat 3 yrs / [facility] CORONARY ANGIOGRAPHY W/LEFT HEART CATH 09/25/2010 CORONARY ANGIOGRAPHY W/LEFT HEART CATH performed by SUSAN SPENCER at CARDI[facility] LABS [facility] CORONARY ANGIOGRAPHY W/LEFT HEART CATH Right 06/09/2019 CORONARY ANGIOGRAPHY W/LEFT HEART CATH performed by Isra Melton DO at [facility] EGD, FLEXIBLE, DIAGNOSTIC 04/03/2015 reflux esophagitis/[facility] ELECTROPHYSIOLOGY EVAL & ABLATE VENTRICULAR TACH Bilateral 11/07/2019 VT ISCHEMIC EPS AND CATHETER ABLATION performed by Genesis Skaggs MD at [facility] INFORMATION 04/27/1980 tmj INSERT/REPLACE DEFIBRILLATOR W/TRANSVERSE LEAD(S) 06/01/2012 NON-THOR ICD LEADS AND GENERATOR IMPLANT performed by Dipika Medina IV, MD at [facility] IR VENOUS ACCESS NON-MEDIPORT 06/13/2019 MISCELLANEOUS ORDER ([facility] ONLY) 04/27/2009 Left shoulder decompression for impingement SD LASER SURGERY OF EYE Bilateral 2020 REMOVE TONSILS & ADENOIDS, AGE 12+ About 20 years old Review of patient's allergies indicates: Allergen Reactions Tessalon [Tessalon Perles] Other (Please comment) Choking Benzonatate choking Family History Problem Relation Name Age of Onset Cancer Mother bonemarrow Cancer Father lung Diabetes Sister Stroke Sister Gastro-intestinal disorder Daughter Constipation Allergies Son Suspectible to bronchitis Other (+ dm) Son Other (+ htn) Son Eye Problems No significant family history Family Status Relation Status Mo (Not Specified) Fa (Not Specified) Sis (Not Specified) Sis (Not Specified) Norma (Not Specified) Son (Not Specified) No history (Not Specified) Social History Socioeconomic History Marital status: Spouse name: Not on file Number of children: Not on file Years of education: Not on file Highest education level: Not on file Occupational History Not on file Tobacco Use Smoking status: Never Passive exposure: Past Smokeless tobacco: Never Vaping Use Vaping status: Never Used Substance and Sexual Activity Alcohol use: Yes Comment: Very Seldom Drug use: No Sexual activity: Not on file Other Topics Concern Not on file Social History Narrative 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 Social Needs Financial Resource Strain: Low Risk (09/08/2023) Financial Resource Strain Do you have any trouble paying for your medications, or do you think you might in the future? (Adult - for ages 18 years and over): No Does your family have trouble paying for medicine? (Household - for ages 0-17 years): Not on file Food Insecurity: No Food Insecurity (09/08/2023) Food Insecurity Do you need food for this week? (Adult - for ages 18 years and over): No Are you able to get enough food for your family? (Household - for ages 0-17 years): Not on file Does your family need food this week? (Household - for ages 0-17 years): Not on file Do you always have enough food for your family? (Household - for ages 0-17 years): Not on file Transportation Needs: No Transportation Needs (09/08/2023) Transportation Needs Do you have trouble getting a ride to medical visits or work? (Adult - for ages 18 years and over):Never True Does your family have a hard time getting a ride to doctors visits? (Household - for ages 0-17 years): Not on file Has lack of transportation kept you from medical appointments, meetings, work, or from getting things needed for daily living? Check all that apply. (Adult - for ages 18 years and over): Not on file Do you (or your family) have trouble finding or paying for a ride (transportation)? (Household - for ages 0-17 years): Not on file Social Connections: Socially Integrated (09/08/2023) Social Connections How often do you feel lonely or isolated from those around you? (Adult - for ages 18 years and over): Never Housing Stability: Low Risk (09/08/2023) Housing Stability Do you currently live in a correction or have no steady place to sleep at night? (Adult - for ages 18 years and over): No Do you think you are at risk of becoming homeless? (Adult - for ages 18 years and over): No Does your family worry about paying for your home or becoming homeless? (Household - for ages 0-17 years): Not on file Are you homeless or worried that you might be in the future? (Adult - for ages 18 years and over): Not on file Are you (or your family) homeless or worried that you might be in the future? (Household - for ages0-17 years): Not on file Review of Systems Constitutional: Positive for activity change and fatigue. Negative for appetite change, chills, diaphoresis, fever and unexpected weight change. Respiratory: Negative for chest tightness and shortness of breath. Cardiovascular: Positive for leg swelling. Negative for chest pain and palpitations. Gastrointestinal: Negative for abdominal distention and abdominal pain. Endocrine: Negative. Musculoskeletal: Positive for arthralgias, back pain, gait problem, joint swelling, myalgias, neck pain and neck stiffness. Skin: Positive for wound. Neurological: Positive for numbness and headaches. Negative for dizziness and light-headedness. Psychiatric/Behavioral: Positive for dysphoric mood and sleep disturbance. Negative for agitation and behavioral problems. The patient is nervous/anxious. Objective There were no vitals taken for this visit. Physical Exam Constitutional: General: He is in acute distress. Appearance: Normal appearance. He is obese. He is not ill-appearing, toxic- appearing or diaphoretic. HENT: Head: Normocephalic and atraumatic. Nose: Nose normal. Eyes: Extraocular Movements: Extraocular movements intact. Musculoskeletal: General: Tenderness present. Cervical back: Tenderness present. Neurological: Mental Status: He is alert and oriented to person, place, and time. Psychiatric: Behavior: Behavior normal. Comments: Depression anxiety ASSESSMENT/PLAN: Other chronic pain (Primary) Neck pain Fall, initial encounter Thoracic back pain, unspecified back pain laterality, unspecified chronicity S/P BKA (below knee amputation) unilateral, left (HCC) - oxyCODONE HCl 10 MG Oral Tablet (Roxicodone); Take 1 Tablet by mouth every 8 hours as needed for Pain, Severe. Diabetic polyneuropathy associated with type 2 diabetes mellitus (HCC) - oxyCODONE HCl 10 MG Oral Tablet (Roxicodone); Take 1 Tablet by mouth every 8 hours as needed for Pain, Severe. Leg wound, right, initial encounter - oxyCODONE HCl 10 MG Oral Tablet (Roxicodone); Take 1 Tablet by mouth every 8 hours as needed for Pain, Severe. Abdominal pain, generalized - US ABDOMEN LIMITED; Future; Expected date: 04/22/2024 - XR ABDOMEN 1 VIEW Gallstones - US ABDOMEN LIMITED; Future; Expected date: 04/22/2024 - XR ABDOMEN 1 VIEW 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) Non-pressure chronic ulcer of right lower leg, unspecified ulcer stage (HCC) Osteomyelitis of right foot, unspecified type (HCC) Morbid (severe) obesity due to excess calories (HCC) Other orders - tiZANidine HCl 4 MG Oral Tablet (Zanaflex); Take 1 Tablet by mouth every 8 hours as needed for Muscle spasms. Check-out note: KUB, US Pain med Muscle relaxor F/u tests Diet Cont other current meds Glucose check Kwame Parks MD documented in this encounter Plan of Treatment Upcoming Encounters Date Type Department Care Team (Late st Contact Info) Description 05/04/2024 7:25 AM EST Laboratory Lab Mobile Phlebotomy [facility] [address] [facility] [place] [address] Mvmg, Gml Mobile Home Draw [address] [employer] [place] [address] 05/06/2024 6:00 AM EST Anticoagulation Centralized Clinical Pharmacy Services, Renee Wise [address] [place] [address] [place] [address] [place] [address] 05/11/2024 2:00 PM EST Office [facility] [address] [facility] [place] [address] Sherry Roy MD [address] [place] [address] 05/26/2024 10:30 AM EST Telemedicine [facility], [place] [address] [place] [address] Carolee Manriquez PA-C [address] [place] [address] Edna Baum, [facility] Central Services Tech [address] [place] [address] 07/11/2024 9:50 AM EDT Office Visit [facility], [facility] [address] [facility] [place] [address] Sherry Maya DO [address] [facility] [place], [place] [id number] Scheduled Orders Name Type Priority Associated Diagnoses Orde r Schedule US ABDOMEN LIMITED Medical Imaging Routine Abdominal pain, generalized Gallstones Expected: 04/22/2024, Expires: 05/23/2025 XR ABDOMEN 1 VIEW Medical Imaging Routine Abdominal pain, generalized Gallstones Ordered: 04/22/2024 Scheduled Procedures Name Priority Associated Diagnoses Date/Ti [...] Additional history exists CKD PHOS USE SMARTSET 61955 06/03/2024/10/2023, 11/06/2021, 09/12/2020, Additional history exists HbA1c 06/04/2024 12/03/2023, 07/26, 03/27/2023, Additional history exists Albumin/Creatinine Ratio 06/19/202406/19/ 024, 08/15/2022, 11/06/2021, Additional history exists Depression Monitoring 09/07/2024 09/08/2023 GFR 10/03/2024 04/04/2024, 07/2023, 03/28/2024, Additional history exists TSH 02/25/2025 02/26/2024, 06/2023, 09/24/2023, Additional history exists CKD HGB USE SMARTSET 31560 04/04/202504/04, 03/30/2024, 03/28/2024, Additional history exists DTap/Tdap [...] as of this encounter Visit Diagnoses Diagnosis Other chronic pain- Primary Neck pain Cervicalgia Fall, initial encounter Thoracic back pain, unspecified back pain laterality, unspecified chronicity S/P BKA (below knee amputation) unilateral, left (HCC) Diabetic polyneuropathy associated with type 2 diabetes mellitus (HCC) Leg wound, right, initial encounter Abdominal pain, generalized Gallstones Calculus of gallbladder without mention of cholecystitis or obstruction 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) Non-pressure chronic ulcer of right lower leg, unspecified ulcer stage (HCC) Osteomyelitis of right foot, unspecified type (HCC) Morbid (severe) obesity due to excess calories (HCC) documented in this encounter Advance Directives * [...] the patient have Health Care Power of Qual Research Manager? Yes, not currently available * Full Code [...] Agents on File Name Relationship [facility] Omar Lyle Adult Child [facility] re Agent Xi Mckeont Adult Child [facility] Care Agent Care Teams Confectionery Drops Machine Operator Relationship Specialty Start Date End Date Sherry Maya DO PCP - General Family Medicine 11/12/11 documented as of this encounter
--- OUTSIDE RECORDS SUMMARY | 2024-05-24 05:15 | External Medical Summary | Summary of Care ---
Author Name Unknown Organization [facility] Address [address] [facility] [place] [address] Phone [phone] Care Team Providers Care Manual Equipment Mechanic Name Role Phone Sherry Maya DO Primary Care Provider [phone] Reason for Visit * Reason Comments Dosage Adjustment Via Phone (anticoag Cl inic) Encounter Details Date Type Department Care Team (Late st Contact Info) Description 04/28/2024 6:00 AM EST Anticoagulation Centralized Clinical Pharmacy Services, Renee Wise [address] [place] [address] [place] [address] [facility], [address] [place] [address] Anticoagulation management encounter* Allergies Active Allergy Reactions Criticality Noted Date Comments Benzonatate 12/08/2016 choking Keyanna Pedraza Other (Please comment) High 04/10/20 09 Choking documented as of this encounter (statuses as of 04/28/2024) Medications ONETOUCH LANCETS MISCIndications:DM type 2, not at goal ([facility]) 3 Box Dosing Unit [...] Cap 5 03/16/20 17 Active Glucose Blood (AimingTOUCH VERIO) STRP USE TO TEST BLOOD GLUCOSE 8 TIMES A DAY 800 Strip 3 03/18/20 19 Active Insulin Aspart 100 UNIT/ML Injection Solution Inject under the skin. FOR USE IN PUMP Active TagruleTouch Verio Flex System w/Device Kit Use as [...] chronicity,Heart failure, systolic, due to CAD ([facility]) Bariatric heavy duty walker- 2 wheels- please document patient's weight at 308 1 Each 02/08/20 Active DIURETIC TITRATION PLANIndications:Hear t failure, systolic, due to CAD ([facility]) If no improvement on [...] 24 Active Vitamin D (Ergocalciferol) 1.25 MG (39367 UT) Oral Capsule (Drisdol) TAKE ONE CAPSULE [...] as of this encounter (statuses as of 04/28/2024) Active Problems Problem Noted Date Diagnosed Date [...] (07/04/2019): Added automatically from request for surgery [id number] 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 [...] as of this encounter (statuses as of 04/28/2024) Resolved Problems Problem Noted Date Diagnosed Date [...] of right foot 06/28/2019 07/29/2021 Ventricular tachycardia 06/09/201907/2021 Amputated great toe of right foot 04/14/2019 [...] Silent myocardial infarction 03/23/2013 11/08/2018 Accelerate Clinical Trial*[id number] 01/24/2013 05/16/2015 Overview (01/24/2013): ACCELERATE STUDY. Project # [id number], ONLINE TUTOR: Ben Hoover MD. CRC: DEBORAH Back. SUMMARY: To test the hypothesis that Evacetrapib 130 mg, in comparison to placebo, reduces the risk of major adverse coronary events in high-risk vascular disease patients. CONTACTS: During normal business hours, contact study staff at ; after hours Photovoltaic Solar Cell Designer via the [facility] welding pantograph machine operator [phone]. 24-hour Global Study Helpline: [phone]. Lipid levels should not be ordered/obtained while this subject is in the Accelerate study. Lipids are being managed in a blinded fashion. If lipid levels are inadvertently obtained, it is important that test results are NOT provided to the patient, study doctor, production material coordinator, or other study team members. Restricted meds while in the study: 1) niacin > 250 mg, 2) gemfibrozil with a potent [id number]. NINA on CPAP 06/28/2012 01/31/2020 Overview (06/28/2012): [...] as of this encounter (statuses as of 04/28/2024) Immunizations Name Administration Dates Next Due COVID-19 [...] No 09/08/2023 Does the household have a [facility] source of income? (Household - for ages [...] this encounter Progress Notes * Jaimee Gandhi [facility] - 04/28/2024 4:26 PM EST Medication Therapy Disease Management - Anticoagulation Patient: Ben Lyle | : 1965 Subjective Contacts Contact Date/Time Type Contact Phone/Fax 04/28/2024 04:27 PM EST Phone (Outgoing) Ben Lyle (Self) [phone] (M) Left Message Patient-Reported Symptoms: Objective Current Warfarin Dose As of 04/28/2024 Warfarin maintenance plan: 4 mg (2 mg x 2) every Tue, Wed, Fri; 2 mg (2 mg x 1) all other days INR Result As of 04/28/2024 INR goal: 2.0-3.0 INR used for dosin.6 (04/26/2024) Assessment & Plan Warfarin Plan As of 04/28/2024 Full warfarin instructions: 04/28: 4 mg; Otherwise 2 mg every Mon, Sarah, Sat; 4 mg all other days Next INR check: 05/05/2024 Repeat PT/INR in 1.5 week(s) Weekly dose: increased Additional Dosing Information: Description GML VTuTh- AMIO (patient has 5mg and 1mg tabs) Jaimee Gandhi [facility] Clinical Pharmacist 04/28/2024, 4:26 PM documented in this encounter Plan of Treatment Upcoming Encounters Date Type Department Care Team (Late st Contact Info) Description 05/06/2024 6:00 AM EST Anticoagulation Centralized Clinical Pharmacy Services, Renee Wise [address] [place] [address] [place] [address] [facility], [address] [place] [address] 05/11/2024 2:00 PM EST Office Visit Infectious Disease [facility] 200 [facility] [place] [address] Sherry Roy MD [address] [place] [address] 05/26/2024 10:30 AM EST Telemedicine [facility], [place] [address] [place] [address] Carolee Manriquez PA-C [address] [place] [address] Edna Baum, Community Health Software Systems Architect [address] [place] [address] 07/11/2024 9:50 AM EDT Office Visit [facility] H[place]ad 226 [facility] [place] [phone] Sherry Maya DO [address] [facility] [place] [address] Scheduled Procedures Name Priority Associated Diagnoses Date/Ti [...] Additional history exists CKD PHOS USE SMARTSET 52811 06/03/2024 02/0 10/2023, 11/06/2021, 09/12/2020, Additional history exists HbA1c 06/04/2024 12/03/2023, 07/26, 03/27/2023, Additional history exists Albumin/Creatinine Ratio 06/19/2024 024, 08/15/2022, 11/06/2021, Additional history exists Depression Monitoring 09/07/2024 09/08/2023 GFR 10/03/2024 04/04/2024, 12/0 07/2023, 03/28/2024, Additional history exists TSH 02/25/2025 02/26/2024, 10/0 06/2023, 09/24/2023, Additional history exists CKD HGB USE SMARTSET 11415 04/04/202504/04, 03/30/2024, 03/28/2024, Additional history exists DTap/Tdap [...] the patient have Health Care Power of Gyroscopic Instrument Mechanic? Yes, not currently available * Full Code [...] Relationship Healthcare Agent [facility] p Communication Darrellelijah Lyle Adult Child [facility] re Agent Xi Ontiverosrett Adult Child Health Care Agent Care Teams Manual Equipment Mechanic Relationship Specialty Start Date End Date Sherry Maya DO PCP - General Family Medicine 11/12/11 documented as of this encounter"
--- OUTSIDE RECORDS SUMMARY | 2024-05-24 05:15 | External Medical Summary ---
Author Name Unknown Address Unknown Organization K0G:[facility] [address] [place] [address] Laboratory Report Ordering Provider Test Date Status JACQUELINALIE 04/26/2024 07:00:00 Final Standing order for pt/inr. < br/>Please draw pt/inr every 1 to 4 weeks as requested
Results to [facility]

Warfarin Therapy
INR: 2.0-3.0 conventional anticoagulation
INR: 2.5-3.5 high intensity anticoagulation Observation Date Value Abnormality Reference (Units ) Status PT 04/26/2024 07:00:00 19.2 Above high normal 11 .6-15.2 (seconds) Final INR 04/26/2024 07:00:00 1.6 Above high normal 0. 8-1.2 Final Performing Location [facility] [place] [address]
--- OUTSIDE RECORDS SUMMARY | 2024-05-24 05:16 | External Medical Summary ---
Author Name Unknown Address Unknown Organization K01:[facility] [address] [place] [address] Laboratory Report Ordering Provider Test Date Status ALIE ROPER 04/13/2024 07:25:00 Final Standing order for pt/inr. < br/>Please draw pt/inr every 1 to 4 weeks as requested
Results to [facility]

Warfarin Therapy
INR: 2.0-3.0 conventional anticoagulation
INR: 2.5-3.5 high intensity anticoagulation Observation Date Value Abnormality Reference (Units ) Status PT 04/13/2024 07:25:00 16.2 Above high normal 11 .6-15.2 (seconds) Final INR 04/13/2024 07:25:00 1.3 Above high normal 0. 8-1.2 Final Performing Location [facility] [place] [address] [place] [address]
--- OUTSIDE RECORDS SUMMARY | 2024-05-24 05:16 | External Medical Summary | Summary of Care ---
Author Name Unknown Organization [facility] Address [address] [facility] [place] [address] Phone [phone] Care Team Providers Care Manager Wastewater Name Role Phone Sherry Maya DO Primary Care Provider + [phone] Reason for Visit * Reason Onset Date Comments Fax 04/08/2024 Pt it support Encounter Details Date Type Department Care Team (Late st Contact Info) Description 04/08/2024 Telephone [facility] [address] [facility] [place] [address] Sherry Maya DO 226 [facility] [place] [address] Fax (Pt it support) Allergies Active Allergy Reactions Criticality Noted Date Comments Benzonatate 12/08/2016 choking Keyanna Pedraza Other (Please comment) High 04/10/20 09 Choking documented as of this encounter (statuses as of 04/08/2024) Medications ONETOUCH LANCETS MISCIndications:DM type 2, not at goal ([facility]) 3 Box Dosing Unit 1 04/17/20 15 Active Nitroglycerin 0.4 MG Sublingual Tablet Sublingual Place under the tongue every 5 minutes as needed. Up to 3 in 15 minutes. 25 Tab 11 04/17/20 15 Active Magnesium Oxide 400 MG CapsuleIndications:H eart failure, systolic, due to CAD ([facility]),Automatic implantable cardioverter-defibri llator in situ,Chronic ischemic heart disease,Ischemic cardiomyopathy Take 1 Cap by mouth daily. 30 Cap 5 03/16/20 17 Active Glucose Blood (BillowbyTOUCH VERIO) STRP USE TO TEST BLOOD GLUCOSE 8 TIMES A DAY 800 Strip 3 03/18/20 19 Active Insulin Aspart 100 UNIT/ML Injection Solution Inject under the skin. FOR USE IN PUMP Active FiftyThreeToGigalo Verio Flex System w/Device Kit Use as [...] Active WalkerIndications:Os teomyelitis of foot, left, acute ([facility]),Diabetic polyneuropathy associated with diabetes mellitus due to underlying condition ([facility]),Ulcer of right foot with necrosis of muscle ([facility]),Right knee pain, unspecified chronicity,Heart failure, systolic, due to CAD ([facility]) Bariatric heavy duty walker- 2 wheels- please document patient's weight at 308 1 Each 02/08/20 Active DIURETIC TITRATION PLANIndications:Hear t failure, systolic, due to CAD ([facility]) If no improvement on day 3, contact [...] 100,DM type 2, not at goal ([facility]),Diabetic polyneuropathy associated with type 1 diabetes mellitus ([facility]),HTN, goal below 130/80,Abnormal electrocardiogram Take 1 Tablet by mouth daily. With food. 100 Tablet 04/12/20 Active Acetaminophen 325 MG Oral Tablet (Tylenol) Take 2 Tablets by mouth as needed (for mild to moderate reaction (infusion reaction protocol)). 2 Tablet 04/12/20 Active Meclizine HCl 12.5 MG Oral [...] morning. 100 Capsule 1 06/03/19 24 Active Triamcinolone Acetonide 0.1 % External Lotion (Aristocort)Indicati ons:Other eczema Apply topically to affected area 2 times a day. To dry skin on the lower legs and stump. Avoid on open wounds 60 mL 5 06/17/19 24 Active Atorvastatin Calcium 80 MG Oral [...] 30 minutes before meals 30 Tablet 08/31/19 24 Active Additional Information Patient not taking.Reported [...] noon and 1,000 mg before bedtime. 02/19/20 Active Clotrimazole 1 % External Cream (Lotrimin) Apply topically to affected area 2 times a day for 14 days. Apply to stump 60 g 1 03/28/20 24 2023 Active Betamethasone Dipropionate 0.05 % External Cream (Diprosone) Apply topically to affected area 2 times a day. To affected area. 45 g 3 03/28/20 24 Active Clotrimazole 1 % External Cream (Lotrimin) Apply topically to stump area 2 times a day for 14 days. 60 g 1 4 12:52 PM EST 03/28/20 24 Active Betamethasone Dipropionate 0.05 % External Cream (Diprosone) Apply topically to affected area twice a day. 45 g 3 4 12:52 PM EST 03/29/20 24 Active oxyCODONE HCl 10 MG Oral Tablet (Roxicodone)Indicati ons:S/P BKA (below knee amputation) unilateral, left (HCC),Diabetic polyneuropathy associated with type 2 diabetes mellitus (HCC),Leg wound, right, initial encounter Take 1 Tablet by mouth every 6 hours as needed for Pain, Severe. 60 Tablet 04/04/20 24 Active Vitamin D (Ergocalciferol) 1.25 MG (96869 UT) Oral Capsule (Drisdol) TAKE ONE CAPSULE [...] before bedtime. 90 Capsule 04/04/20 24 Active documented as of this encounter (statuses as of 04/08/2024) Active Problems Problem Noted Date Diagnosed Date [...] (07/04/2019): Added automatically from request for surgery [id number] 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 [...] as of this encounter (statuses as of 04/08/2024) Resolved Problems Problem Noted Date Diagnosed Date [...] Silent myocardial infarction 03/23/2013 11/08/2018 Accelerate Clinical Trial*[id number] 01/24/2013 05/16/2015 Overview (01/24/2013): ACCELERATE STUDY. Project # [id number], MANAGER CARE: Ben Hoover MD. CRC: DEBORAH Back. SUMMARY: To test the hypothesis that Evacetrapib 130 mg, in comparison to placebo, reduces the risk of major adverse coronary events in high-risk vascular disease patients. CONTACTS: During normal business hours, contact study staff at ; after hours Gravity Prospecting Operator Helper via the [facility] hospital notching press operator [phone]. 24-hour Global Study Helpline: [phone]. Lipid levels should not be ordered/obtained while this subject is in the Accelerate study. Lipids are being managed in a blinded fashion. If lipid levels are inadvertently obtained, it is important that test results are NOT provided to the patient, study doctor, web coordinator, or other study team members. Restricted meds while in the study: 1) niacin > 250 mg, 2) gemfibrozil with a potent [id number]. NINA on CPAP 06/28/2012 01/31/2020 Overview (06/28/2012): [...] as of this encounter (statuses as of 04/08/2024) Immunizations Name Administration Dates Next Due COVID-19 [...] Telephone Encounter - Cassi Toro LPN - 04/08/2024 3:30 PM EST Received Fax for BFPROVIDERS: Dr. Sherry Maya ORDER received from it support [facility] and FAXED documented in this encounter Plan of Treatment Upcoming Encounters Date Type Department Care Team (Late st Contact Info) Description 04/13/2024 6:00 AM EST Anticoagulation Centralized Clinical Pharmacy Services, Renee Wise [address] [place] [address] [place] [address] [place] [address] 04/13/2024 7:10 AM EST Laboratory Lab Mobile Phlebotomy [facility] [address] [place] [address] Mvmg, Gml Mobile Home Draw [address] [place] [address] 05/11/2024 2:00 PM EST Office Visit Infectious Disease [facility] [address] [place] [address] Sherry Roy MD [address] [place] [address] 05/26/2024 10:30 AM EST Telemedicine [facility], [place] [address] [place] [address] Carolee Manriquez PA-C [address] [place] [address] Edna Baum, Community Health Evp Head Of [employer] Experience Strategy [address] [place] [address] 07/11/2024 9:50 AM EDT Office Visit [facility] [address] [place] [phone] Sherry Maya DO [address] [place] [address] Scheduled Procedures Name Priority Associated Diagnoses Date/Ti me COLONOSCOPY FLEXIBLE PROXIMAL DIAGNOSTIC Recall History of colon polyps Health Maintenance Due Date Last Done Comments Cologuard 11/26/2008 Fecal Occult Blood Test 11/26/2008 Sigmoidoscopy 11/26/2008 Colonoscopy 06/01/2023 06/01/2020, 10/25, 04/03/2015 Colorectal Cancer Screening 06/01/2023 COVID-19 Vaccine ( season) 2023 05/15/2021, 05/15/2021, 10/04/2020, Additional history exists Influenza Vaccine (FLU shot) (#1) 2023 01/23/2023, 01/23/2023, 02/12/2022, Additional history exists CKD PHOS USE SMARTSET 04147 06/03/2024 02/0 10/2023, 11/06/2021, 09/12/2020, Additional history exists HbA1c 06/04/2024 12/03/2023, 07/26, 03/27/2023, Additional history exists Albumin/Creatinine Ratio 06/19/2024 024, 08/15/2022, 11/06/2021, Additional history exists Depression Monitoring 09/07/2024 09/08/2023 GFR 10/03/2024 04/04/2024, 120 07/2023, 03/28/2024, Additional history exists TSH 02/25/2025 02/26/2024, 0 06/2023, 09/24/2023, Additional history exists CKD HGB USE SMARTSET 84137 04/04/202504/04, 03/30/2024, 03/28/2024, Additional history exists DTap/Tdap Vaccines (3 - Td or Tdap) 12/13/2025 12/14/2015, 04/10/2008 Pneumococcal Vaccine: Pediatrics (0 to 5 Years) and At-Risk Patients (6 to 64 Years) (3 of 3 - PPSV23 or PCV20) 11/26/2028 01/04/2017, 09/08/2006 Hepatitis B Vaccine Completed 11/16/2017, 07/14/2017, 05/14/2017 [...] the patient have Health Care Power of Storage Battery Inspector? Yes, not currently available * Full Code [...] Communication Omar Lyle Adult Child [facility] re Agent Xi Mckeont Adult Child [facility] Care Agent Care Teams Manager Wastewater Relationship Specialty Start Date End Date Sherry Maya DO [address] [place] [address] PCP - General Family Medicine 11/12/11 documented as of this encounter
--- OUTSIDE RECORDS SUMMARY | 2024-05-24 05:16 | External Medical Summary | Summary of Care ---
Author Name Unknown Organization [facility] [address] [facility] [place] [address] Phone [phone] Care Team Providers Care Cycle Specialist Name Role Phone Sherry Maya DO Primary Care Provider [phone] Reason for Visit * Reason Onset Date Comments Medication Refill 04/12/2024 Encounter Details Date Type Department Care Team (Late st Contact Info) Description 04/12/2024 Refill ising at Home, [place] [address] [place] [address] Natalie Manriquez PA-C [address] [place] [address] Other eczema Allergies Active Allergy Reactions Criticality Noted Date Comments Benzonatate 12/08/2016 choking Keyanna Pedraza Other (Please comment) High 04/10/20 09 Choking documented as of this encounter (statuses as of 04/12/2024) Medications ONETOUCH LANCETS MISCIndications:DM type 2, not at goal ([facility]) 3 Box Dosing Unit 1 015 Active Nitroglycerin 0.4 MG Sublingual Tablet Sublingual Place under the tongue every 5 minutes as needed. Up to 3 in 15 minutes. 25 Tab 11 015 Active Magnesium Oxide 400 MG CapsuleIndications:H eart failure, systolic, due to CAD ([facility]),Automatic implantable cardioverter-defibri llator in situ,Chronic ischemic heart disease,Ischemic cardiomyopathy Take 1 Cap by mouth daily. 30 Cap 5 Active Glucose Blood (WanderuTOUCH VERIO) STRP USE TO TEST BLOOD GLUCOSE [...] with diabetes mellitus due to underlying condition ([facility]),Ulcer of right foot with necrosis of muscle ([facility]),Right knee pain, unspecified chronicity,Heart failure, systolic, due to CAD ([facility]) Bariatric heavy duty walker- 2 wheels- please document patient's weight at 308 1 Each Active DIURETIC TITRATION PLANIndications:Hear t failure, systolic, due to CAD ([facility]) If no improvement on day 3, [...] below 100,DM type 2, not at goal ([facility]),Diabetic polyneuropathy associated with type 1 diabetes mellitus (HCC),HTN, goal below 130/80,Abnormal electrocardiogram Take 1 Tablet by mouth daily. With food. 100 Tablet 5 Active Acetaminophen 325 MG Oral Tablet (Tylenol) Take 2 Tablets by mouth as needed (for mild to moderate reaction (infusion reaction protocol)). 2 Tablet 11 021 Active Meclizine HCl 12.5 MG Oral Tablet (Antivert) Take by mouth 1 Tablet as needed in the morning AND 1 Tablet as needed at noon AND 1 Tablet as needed in the evening for Dizziness. 30 Tablet 1 022 Active Fluticasone Propionate 50 MCG/ACT Nasal SuspensionIndication [...] Cramping. for abdominal pain 40 Tablet 2 024 Active Potassium Chloride Tiffanie ER 20 [...] 60 g 1 4 12:52 PM EST 024 Active Betamethasone Dipropionate 0.05 % External Cream (Diprosone) Apply topically to affected area twice a day. 45 g 3 4 12:52 PM EST 024 Active oxyCODONE HCl 10 MG Oral Tablet (Roxicodone)Indicati ons:S/P BKA (below knee amputation) unilateral, left (HCC),Diabetic polyneuropathy associated with type 2 diabetes mellitus (HCC),Leg wound, right, initial encounter Take 1 Tablet by mouth every 6 hours as needed for Pain, Severe. 60 Tablet 024 Active Vitamin D (Ergocalciferol) 1.25 MG (64121 UT) Oral Capsule (Drisdol) TAKE ONE CAPSULE BY MOUTH EVERY WEEK 12 Capsule 024 Active Levothyroxine Sodium 88 MCG Oral Tablet (Levoxyl)Indications :Hypothyroidism, unspecified type TAKE 1 TABLET BY MOUTH EVERY MORNING at least 30 minutes before breakfast or other meds 100 Tablet 024 Active Pregabalin 50 MG Oral Capsule (Lyrica)Indications: Diabetic polyneuropathy associated with type 2 diabetes mellitus (HCC),S/P BKA (below knee amputation) unilateral, left (HCC),Leg wound, right, initial encounter Take 1 Capsule by mouth in the morning and 1 Capsule at noon and 1 Capsule before bedtime. 90 Capsule 024 Active Triamcinolone Acetonide 0.1 % External Lotion (Aristocort)Indicati ons:Other eczema Apply topically to affected area of dry skin on the lower legs and stump 2 times a day - avoid on open wounds. 60 mL 5 024 Active Triamcinolone Acetonide 0.1 % External Lotion (Aristocort)Indicati ons:Other eczema Apply topically to affected area 2 times a day. To dry skin on the lower legs and stump. 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 Project # [id number], ROTARY ENGINE ASSEMBLER: Ben Hoover MD. CRC: DEBORAH Back. SUMMARY: To test the hypothesis that Evacetrapib 130 mg, in comparison to placebo, reduces the risk of major adverse coronary events in high-risk vascular disease patients. CONTACTS: During normal business hours, contact study staff at ; after hours Junior Qa Analyst via the [facility] [place] burr bench operator [phone]. 24-hour Global Study Helpline: [phone]. Lipid levels should not be ordered/obtained while this subject is in the Accelerate study. Lipids are being managed in a blinded fashion. If lipid levels are inadvertently obtained, it is important that test results are NOT provided to the patient, study doctor, environmental coordinator, or other study team members. Restricted meds while in the study: 1) niacin > 250 mg, 2) gemfibrozil with a potent [id number]. NINA on CPAP 06/28/2012 01/31/2020 Overview (06/28/2012): [...] as of this encounter (statuses as of 04/12/2024) Immunizations Name Administration Dates Next Due COVID-19 [...] Assessment Author No 01/08/2021 1:48 AM EDT Ivania, Gaurav mark W, RN * Are you blind or do [...] encounter Miscellaneous Notes * Telephone Encounter - Natalie Manriquez PA-C - 04/12/2024 8:51 AM ESTSigned Prescriptions: Disp Refills Triamcinolone Acetonide 0.1 % External Lot*60 mL 5 Sig: Apply topically to affected area 2 times a day. To dry skin on the lower legs and stump. Avoid on open woundsAuthorizing Provider: NATALIE MANRIQUEZ documented in this encounter Plan of Treatment Upcoming Encounters Date Type Department Care Team (Late st Contact Info) Description 04/13/2024 6:00 AM EST Anticoagulation [facility] Clinical Pharmacy Services, Renee Wise [address] [place] [address] [place] [address] [place] [address] 04/13/2024 7:10 AM EST Laboratory Lab Mobile Phlebotomy [facility] [address] [place] [address] M[facility], Gml Mobile Home Draw [address] [place] [address] 05/11/2024 2:00 PM EST Office Visit [facility]ious [facility] [place] [address] Sherry Roy MD [address] [place] [address] 05/26/2024 10:30 AM EST [facility]medicine [facility], [place] [address] [place] [address] Natalie Manriquez PA-C [address] [place] [address] Edna Baum, Community Health Instrument Engineer [address] [place] [address] 07/11/2024 9:50 AM EDT Office Visit [facility] [address] [facility] [place] [phone] Sherry Maya DO [address] [facility] [place] [id number] Scheduled Procedures Name Priority Associated Diagnoses Date/Ti [...] Additional history exists CKD PHOS USE SMARTSET 52820 06/03/2024 02/0 10/2023, 11/06/2021, 09/12/2020, Additional history exists HbA1c 06/04/2024 12/03/2023, 04, 03/27/2023, Additional history exists Albumin/Creatinine Ratio 06/19/2024 024, 08/15/2022, 11/06/2021, Additional history exists Depression Monitoring 09/07/2024 09/08/2023 GFR 10/03/2024 04/04/2024, 1207/2023, 03/28/2024, Additional history exists TSH 02/25/2025 02/26/2024, 100 06/2023, 09/24/2023, Additional history exists CKD HGB USE SMARTSET 60061 04/04/202504/04, 03/30/2024, 03/28/2024, Additional history exists DTap/Tdap [...] of this encounter Visit Diagnoses Diagnosis Other eczema documented in this encounter Advance Directives * [...] the patient have Health Care Power of Quality Engineer Medical Device? Yes, not currently available * Full Code [...] Relationshi p Communication Omar Lyle Adult Child [facility] Health [facility] re Agent Xi Lyle Adult Child Health Care Agent Care Teams Cycle Specialist Relationship Specialty Start Date End Date Sherry Maya DO [address] [place] [address] PCP - General Family Medicine 11/12/11 documented as of this encounter
--- OUTSIDE RECORDS SUMMARY | 2024-05-24 05:16 | External Medical Summary | Summary of Care ---
Author Name Unknown Organization [facility] Address [address] [facility] [place] [address] Phone [phone] Care Team Providers Care Paper Folder Name Role Phone Sherry Maya DO Primary Care Provider [phone] Reason for Visit * Reason Comments Dosage Adjustment Via Phone (anticoag Cl inic) Encounter Details Date Type Department Care Team (Late st Contact Info) Description 04/14/2024 6:00 AM EST Anticoagulation Centralized Clinical Pharmacy Services, Renee Wise [address] [place] [address] [place] [address] [facility], [address] [place] [address] Anticoagulation management encounter* Allergies Active Allergy Reactions Criticality Noted Date Comments Benzonatate 12/08/2016 choking Keyanna Pedraza Other (Please comment) High 04/10/20 09 Choking documented as of this encounter (statuses as of 04/14/2024) Medications ONETOUCH LANCETS MISCIndications:DM type 2, not at goal ([facility]) 3 Box Dosing Unit [...] Cap 5 03/16/20 17 Active Glucose Blood (CleanBeeBabyTOUCH VERIO) STRP USE TO TEST BLOOD GLUCOSE 8 TIMES A DAY 800 Strip 3 03/18/20 19 Active Insulin Aspart 100 UNIT/ML Injection Solution Inject under the skin. FOR USE IN PUMP Active Stream ProcessorsTouch Verio Flex System w/Device Kit Use as [...] chronicity,Heart failure, systolic, due to CAD ([facility]) Bariatric heavy duty walker- 2 wheels- please document patient's weight at 308 1 Each 02/08/20 Active DIURETIC TITRATION PLANIndications:Hear t failure, systolic, due to CAD ([facility]) If no improvement on [...] 24 Active Vitamin D (Ergocalciferol) 1.25 MG (95986 UT) Oral Capsule (Drisdol) TAKE ONE CAPSULE [...] 4 1:17 PM EST 04/12/20 24 Active documented as of this encounter (statuses as of 04/14/2024) Active Problems Problem Noted Date Diagnosed Date [...] (07/04/2019): Added automatically from request for surgery [id number] 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 Project # [id number], COMMUNITY SUPPORT ASSOCIATE: Ben Hoover MD. CRC: DEBORAH Back. SUMMARY: To test the hypothesis that Evacetrapib 130 mg, in comparison to placebo, reduces the risk of major adverse coronary events in high-risk vascular disease patients. CONTACTS: During normal business hours, contact study staff at ; after hours Rate Setter via the [facility] [place] process control board operator [phone]. 24-hour Global Study Helpline: [phone]. Lipid levels should not be ordered/obtained while this subject is in the Accelerate study. Lipids are being managed in a blinded fashion. If lipid levels are inadvertently obtained, it is important that test results are NOT provided to the patient, study doctor, meeting coordinator, or other study team members. Restricted meds while in the study: 1) niacin > 250 mg, 2) gemfibrozil with a potent [id number]. NINA on CPAP 06/28/2012 01/31/2020 Overview (06/28/2012): [...] as of this encounter (statuses as of 04/14/2024) Immunizations Name Administration Dates Next Due COVID-19 [...] No 09/08/2023 Does the household have a [facility] source of income? (Household - for ages [...] documented in this encounter Progress Notes * Helena Allen counselor aide - 04/14/2024 8:55 AM EST Contacts Contact Date/Time Type Contact Phone/Fax 04/14/2024 08:52 AM EST Phone (Outgoing) Ben Lyle (Self) [phone] (M) Spoke to Patient Subjective Patient Findings Negatives: Signs/symptoms of bleeding, Change in health, Change in activity, Upcoming invasive procedure, Missed doses, Extra doses, Change in medications, Change in diet/appetite, Bruising Advised patient to contact Anticoagulation Clinic if any unusual bruising or bleeding, recent illness, changes in medication, or questions/concerns. PT/INR results, Coumadin dose instructions, and next PT/INR date communicated as noted by Pharmacist: Yes IGGY Edge Tech 04/14/2024, 8:55 AM * Jaimee Gandhi [facility] - 04/14/2024 8:49 AM EST Images from the original note were not included. Coumadin Clinic (region specific) Objective Current Warfarin Dose As of 04/14/2024 Warfarin maintenance plan: 4 mg (2 mg x 2) every Tue, Wed, Fri; 2 mg (2 mg x 1) all other days INR Result As of 04/14/2024 INR goal: 2.0-3.0 INR used for dosin.3 (04/13/2024) Assessment & Plan Warfarin Plan As of 04/14/2024 Full warfarin instructions: 04/14: 4 mg; Otherwise 4 mg every Tue, Wed, Fri; 2 mg all other days Next INR check: 04/28/2024 Repeat PT/INR in 2 week(s) Weekly dose: not changed Additional Dosing Information: Description [facility] (patient has 5mg and 1mg tabs) Tech to contact patient with dose instructions as noted. Jaimee Gandhi RPh 04/14/2024, 8:49 AM documented in this encounter Plan of Treatment Upcoming Encounters Date Type Department Care Team (Late st Contact Info) Description 04/15/2024 11:00 AM EST Telemedicine [facility] [address] [place] [phone] Kwame Parks MD [address] [place] [address] 04/29/2024 6:00 AM EST Anticoagulation Centralized Clinical Pharmacy Services, Renee Wise [address] [place] [address] [place] [address] [place] [address] 05/11/2024 2:00 PM EST Office Visit Infectious [facility] [address] [facility] [place] [address] Sherry Roy MD [address] [place] [address] 05/26/2024 10:30 AM EST [facility]icine [facility], [place] [address] [place] [address] Carolee Manriquez PA-C [address] [place] [address] Edna Baum, Community Health Social Media Content Manager [address] [place] [address] 07/11/2024 9:50 AM EDT Office Visit [facility] [address] [place] [address] Sherry Maya DO [address] [place] [address] Scheduled Procedures Name Priority Associated Diagnoses Date/Ti [...] Additional history exists CKD PHOS USE SMARTSET 24191 06/03/202410/2023, 11/06/2021, 09/12/2020, Additional history exists HbA1c 06/04/2024 12/03/2023, 07/26, 03/27/2023, Additional history exists Albumin/Creatinine Ratio 06/19/2024 024, 08/15/2022, 11/06/2021, Additional history exists Depression Monitoring 09/07/2024 09/08/2023 GFR 10/03/2024 04/04/2024, 07/2023, 03/28/2024, Additional history exists TSH 02/25/2025 02/26/2024, 06/2023, 09/24/2023, Additional history exists CKD HGB USE SMARTSET 97127 04/04/202504/04, 03/30/2024, 03/28/2024, Additional history exists DTap/Tdap [...] the patient have Health Care Power of Commanding Officer Garage? Yes, not currently available * Full Code [...] Agent Relationshi p Communication Omar Valdo Adult [facility] re Agent Xi [facility] Care Agent Care Teams Paper Folder Relationship Specialty Start Date End Date Sherry Maya DO PCP - General Family Medicine 11/12/11 documented as of this encounter
--- OUTSIDE RECORDS SUMMARY | 2024-05-24 05:16 | External Medical Summary | Summary of Care ---
Author Name Unknown Organization [facility] Address [address] [facility] [place] [address] Phone [phone] Care Team Providers Care Hot Shot Name Role Phone Sherry Maya DO Primary Care Provider [phone] Reason for Visit * Reason Onset Date Comments Fax 04/22/2024 [facility] Encounter Details Date Type Department Care Team (Late st Contact Info) Description 04/22/2024 Telephone [facility] [address] [facility] [place] [address] Sherry Maya DO [address] [facility] [place] [address] Fax ([facility]) Allergies Active Allergy Reactions Criticality Noted Date Comments Benzonatate 12/08/2016 choking Keyanna Pedraza Other (Please comment) High 04/10/20 09 Choking documented as of this encounter (statuses as of 04/22/2024) Medications ONEMALATHI PEREZ MISCIndications:DM type 2, not at goal ([facility]) 3 Box Dosing Unit 1 04/17/20 [...] Cap 5 03/16/20 17 Active Glucose Blood (Envio NetworksTOUCH VERIO) STRP USE TO TEST BLOOD GLUCOSE 8 TIMES A DAY 800 Strip 3 03/18/20 19 Active Insulin Aspart 100 UNIT/ML Injection Solution Inject under the skin. FOR USE IN PUMP Active [email or web address] [facility] Verio Flex System w/Device Kit Use as [...] Active WalkerIndications:Os teomyelitis of foot, left, acute ([facility]),Diabetic polyneuropathy associated with diabetes mellitus due to underlying condition ([facility]),Ulcer of right foot with necrosis of muscle ([facility]),Right knee pain, unspecified chronicity,Heart failure, systolic, due to CAD ([facility]) Bariatric heavy duty walker- 2 wheels- please document patient's weight at 308 1 Each 02/08/20 Active DIURETIC TITRATION PLANIndications:Hear t failure, systolic, due to CAD ([facility]) If no improvement on day 3, [...] below 100,DM type 2, not at goal ([facility]),Diabetic polyneuropathy associated with type 1 diabetes mellitus ([facility]),HTN, goal below 130/80,Abnormal electrocardiogram Take 1 Tablet [...] 4 3:57 PM EST 03/29/20 24 Active oxyCODONE HCl 10 MG Oral Tablet (Roxicodone)Indicati ons:S/P BKA (below knee amputation) unilateral, left (HCC),Diabetic polyneuropathy associated with type 2 diabetes mellitus (HCC),Leg wound, right, initial encounter Take 1 Tablet by mouth every 6 hours as needed for Pain, Severe. 60 Tablet 04/04/20 24 Active Vitamin D (Ergocalciferol) 1.25 MG (88436 UT) Oral Capsule (Drisdol) TAKE ONE CAPSULE [...] as of this encounter (statuses as of 04/22/2024) Active Problems Problem Noted Date Diagnosed Date [...] (07/04/2019): Added automatically from request for surgery [id number] 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 [...] as of this encounter (statuses as of 04/22/2024) Resolved Problems Problem Noted Date Diagnosed Date [...] Silent myocardial infarction 03/23/2013 11/08/2018 Accelerate Clinical Trial*[id number] 01/24/2013 05/16/2015 Overview (01/24/2013): ACCELERATE STUDY. Project # [id number], EVENT SALES MANAGER: Ben Hoover MD. CRC: DEBORAH Back. SUMMARY: To test the hypothesis that Evacetrapib 130 mg, in comparison to placebo, reduces the risk of major adverse coronary events in high-risk vascular disease patients. CONTACTS: During normal business hours, contact study staff at ; after hours Fashion Editor via the [facility] hospital vacuum drier operator [phone]. 24-hour Global Study Helpline: [phone]. Lipid levels should not be ordered/obtained while this subject is in the Accelerate study. Lipids are being managed in a blinded fashion. If lipid levels are inadvertently obtained, it is important that test results are NOT provided to the patient, study doctor, review scheduling coordinator, or other study team members. Restricted meds while in the study: 1) niacin > 250 mg, 2) gemfibrozil with a potent [id number]. NINA on CPAP 06/28/2012 01/31/2020 Overview (06/28/2012): [...] as of this encounter (statuses as of 04/22/2024) Immunizations Name Administration Dates Next Due COVID-19 [...] Telephone Encounter - Cassi Toro LPN - 04/22/2024 3:03 PM EST Received Fax for BFPROVIDERS: Dr. Sherry Maya ORDER received from [facility] and FAXED documented in this encounter Plan of Treatment Upcoming Encounters Date Type Department Care Team (Late st Contact Info) Description 04/22/2024 4:00 PM EST Telemedicine [facility] [address] [place] [phone] Kwame Parks MD [address] [place] [address] 04/26/2024 7:05 AM EST Laboratory Lab Mobile Phlebotomy [facility] [address] [place] [address] M[facility], Gml Mobile Home Draw [address] [place] [address] 04/29/2024 6:00 AM EST Anticoagulation Centralized Clinical Pharmacy Services, Renee Wise [address] [place] [address] [place] [address] [place] [address] 05/11/2024 2:00 PM EST Office Visit Infectious Disease [facility] [address] [facility] [place] [address] Sherry Roy MD [address] [place] [address] 05/26/2024 10:30 AM EST [facility]icine [facility] [place] [address] [place] [address] Carolee Manriquez PA-C [address] [place] [address] Edna Baum, Community Health Material Handler 1St Shift [address] [place] [address] 07/11/2024 9:50 AM EDT Office Visit [facility] [address] [place] [address] Sherry Maya DO [address] [place] [address] Scheduled Procedures Name Priority Associated Diagnoses Date/Ti [...] Additional history exists CKD PHOS USE SMARTSET 37963 06/03/2024 02/0 10/2023, 11/06/2021, 09/12/2020, Additional history exists HbA1c 06/04/2024 12/03/2023, 04/1 , 03/27/2023, Additional history exists Albumin/Creatinine Ratio 06/19/2024 024, 08/15/2022, 11/06/2021, Additional history exists Depression Monitoring 09/07/2024 09/08/2023 GFR 10/03/2024 04/04/2024, 120 07/2023, 03/28/2024, Additional history exists TSH 02/25/2025 02/26/2024, 10/0 06/2023, 09/24/2023, Additional history exists CKD HGB USE SMARTSET 19613 04/04/202504/04, 03/30/2024, 03/28/2024, Additional history exists DTap/Tdap [...] the patient have Health Care Power of Needle Loom Operator? Yes, not currently available * Full [...] Healthcare Agent [facility] p Communication Omar Lyle Adult Child [facility] re Agent Xi Lyle Adult Child [facility] Care Agent Care Teams Hot Shot Relationship Specialty Start Date End Date Sherry Maya DO PCP - General Family Medicine 11/12/11 documented as of this encounter
--- OUTSIDE RECORDS SUMMARY | 2024-05-24 05:16 | External Medical Summary | Summary of Care ---
Author Name Unknown Organization [facility] Address [address] [address] Phone [phone] Care Team Providers Care Manager Highway Name Role Phone Sherry Maya DO Primary Care Provider + [phone] Reason for Visit * Reason Onset Date Comments Medication Refill 04/21/2024 Encounter Details Date Type Department Care Team (Late st Contact Info) Description 04/21/2024 Telephone [facility] [address] [facility] [place] [address] Sherry Maya DO [address] [facility] [place] [address] Medication Refill Allergies Active Allergy Reactions Criticality Noted Date Comments Benzonatate 12/08/2016 choking Keyanna Pedraza Other (Please comment) High 04/10/20 09 Choking documented as of this encounter (statuses as of 04/21/2024) Medications ONETOUCH LANCETS MISCIndications:DM type 2, not [...] Cap 5 03/16/20 17 Active Glucose Blood (HIT Application SolutionsTOUCH VERIO) STRP USE TO TEST BLOOD GLUCOSE [...] 24 Active Vitamin D (Ergocalciferol) 1.25 MG (09594 UT) Oral Capsule (Drisdol) TAKE ONE CAPSULE [...] as of this encounter (statuses as of 04/21/2024) Active Problems Problem Noted Date Diagnosed Date [...] (07/04/2019): Added automatically from request for surgery [id number] 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 [...] as of this encounter (statuses as of 04/21/2024) Resolved Problems Problem Noted Date Diagnosed Date [...] Silent myocardial infarction 03/23/2013 11/08/2018 Accelerate Clinical Trial*[id number] 01/24/2013 05/16/2015 Overview (01/24/2013): ACCELERATE STUDY. Project # [id number], MARRIAGE AND FAMILY THERAPIST: Ben Hoover MD. CRC: DEBORAH Back. SUMMARY: To test the hypothesis that Evacetrapib 130 mg, in comparison to placebo, reduces the risk of major adverse coronary events in high-risk vascular disease patients. CONTACTS: During normal business hours, contact study staff at ; after hours Nursing Specialist via the [facility] pellet machine operator [phone]. 24-hour Global Study Helpline: [phone]. Lipid levels should not be ordered/obtained while this subject is in the Accelerate study. Lipids are being managed in a blinded fashion. If lipid levels are inadvertently obtained, it is important that test results are NOT provided to the patient, study doctor, script coordinator, or other study team members. Restricted meds while in the study: 1) niacin > 250 mg, 2) gemfibrozil with a potent [id number]. NINA on CPAP 06/28/2012 01/31/2020 Overview (06/28/2012): [...] as of this encounter (statuses as of 04/21/2024) Immunizations Name Administration Dates Next Due COVID-19 [...] No 09/08/2023 Does the household have a [facility] medical centerr source of income? (Household - for ages [...] encounter Miscellaneous Notes * Telephone Encounter - Thai Lucas OSA - 04/21/2024 12:16 PM EST Patient called in asking for refill on oxycodone. I told patient that he needs an appointment before medication will be refilled documented in this encounter Plan of Treatment Upcoming Encounters Date Type Department Care Team (Late st Contact Info) Description 04/22/2024 4:00 PM EST Telemedicine [facility] [address] [place] [phone] Kwame Parks MD [address] [place] [address] 04/26/2024 7:05 AM EST Laboratory Lab Mobile Phlebotomy [facility] [address] [place] [address] [facility], [facility] Mobile Home Draw [address] [place] [address] 04/29/2024 6:00 AM EST Anticoagulation [facility], Renee Wise [address] [place] [address] [place] [address] [place] [address] 05/11/2024 2:00 PM EST Office Visit Infectious Disease [facility] [place] [address] [place] [address] Sherry Roy MD [address] [place] [address] 05/26/2024 10:30 AM EST Telemedicine [facility], [place] [address] [place] [address] Carolee Manriquez PA-C [address] [place] [address] Edna Baum, [facility] Stuffed Casing Tier [address] [place] [address] 07/11/2024 9:50 AM EDT [facility] [address] [place] [phone] Sherry Maya DO [address] [place] [address] Scheduled Procedures Name Priority Associated Diagnoses Date/Ti [...] Additional history exists CKD PHOS USE SMARTSET 34393 06/03/2024 02/0 10/2023, 11/06/2021, 09/12/2020, Additional history exists HbA1c 06/04/2024 12/03/2023, 04/1 , 03/27/2023, Additional history exists Albumin/Creatinine Ratio 06/19/2024 024, 08/15/2022, 11/06/2021, Additional history exists Depression Monitoring 09/07/2024 09/08/2023 GFR 10/03/2024 04/04/2024, 07/2023, 03/28/2024, Additional history exists TSH 02/25/2025 02/26/2024, 100 06/2023, 09/24/2023, Additional history exists CKD HGB USE SMARTSET 36547 04/04/202504/04, 03/30/2024, 03/28/2024, Additional history exists DTap/Tdap [...] the patient have Health Care Power of Dimensional Inspector? Yes, not currently available * Full [...] Agents on File Name Relationship [facility] Maurymemo Mckeont Adult [facility] re Agent Xi Ontiverosrett Adult [facility] Care Agent Care Teams Manager Highway Relationship Specialty Start Date End Date Sherry Maya DO PCP - General Family Medicine 11/12/11 documented as of this encounter
--- OUTSIDE RECORDS SUMMARY | 2024-05-24 05:17 | External Medical Summary | Summary of Care ---
Author Name Unknown Organization [facility] Address [address] [facility] [place] [address] Phone [phone] Care Team Providers Care Process Control Technician Name Role Phone David Maya DO Primary Care Provider + [phone] Reason for Visit * Reason Onset Date Comments Medication Refill 04/02/2024 Encounter Details Date Type Department Care Team (Late st Contact Info) Description 04/02/[address] [address] Shree Camilo MD [address] [place] [address] Diabetic polyneuropathy associated with type 2 diabetes mellitus (HCC); S/P BKA (below knee amputation) unilateral, left (HCC); Leg wound, right, initial encounter Allergies Active Allergy Reactions Criticality Noted Date Comments Benzonatate 12/08/2016 choking Keyanna Pedraza Other (Please comment) High 04/10/20 09 Choking documented as of this encounter (statuses as of 04/04/2024) Medications ONETOUCH LANCETS MISCIndications:DM type 2, not at goal (HCC) 3 Box Dosing Unit 1 015 Active Nitroglycerin 0.4 MG Sublingual Tablet Sublingual Place under the tongue every 5 minutes as needed. Up to 3 in 15 minutes. 25 Tab 11 12/22/2 015 Active Magnesium Oxide 400 MG CapsuleIndications: Heart failure, systolic, due to CAD ([facility]),Automatic implantable cardioverter-defibr illator in situ,Chronic ischemic heart disease,Ischemic cardiomyopathy Take 1 Cap by mouth daily. 30 Cap 5 Active Glucose Blood (INFUSDTOUCH VERIO) STRP USE TO TEST BLOOD GLUCOSE 8 TIMES A DAY 800 Strip 3 Active Insulin Aspart 100 UNIT/ML Injection Solution Inject under the skin. FOR USE IN PUMP Active HomejoyToKoolSpan Verio Flex System w/Device Kit Use as [...] Active WalkerIndications:O steomyelitis of foot, left, acute ([facility]),Diabetic polyneuropathy associated with diabetes mellitus due to underlying condition ([facility]),Ulcer of right foot with necrosis of muscle ([facility]),Right knee pain, unspecified chronicity,Heart failure, systolic, due to CAD ([facility]) Bariatric heavy duty walker- 2 wheels- please document patient's weight at 308 1 Each Active DIURETIC TITRATION PLANIndications:Hea rt failure, systolic, due to CAD ([facility]) If no improvement on day [...] ions:S/P BKA (below knee amputation) unilateral, left ([facility]) Apply topically to affected area as needed for Dry Skin. Apply to rash on legs 400 g 024 Active Omeprazole 20 MG Oral Capsule Delayed Release (PriLOSEC)Indicatio ns:Heart burn Take 1 Capsule by mouth in the morning. 100 Capsule 1 024 Active Triamcinolone Acetonide 0.1 % External Lotion (Aristocort)Indicat ions:Other eczema Apply topically to affected area 2 times a day. To dry skin on the lower legs and stump. Avoid on open wounds 60 mL 5 024 Active Atorvastatin Calcium 80 MG Oral Tablet (Lipitor)Indication s:Dyslipidemia, goal LDL below 100 Take 1 Tablet by mouth in the morning. 100 Tablet 3 024 Active Additional Information Patient not taking.Reported on 03/03/2024 metOLazone 2.5 MG Oral Tablet (Zaroxolyn) Take 1 Tablet by mouth once a day on Thursday, Thursday, and Thursday only. 90 Tablet 1 Active DULoxetine HCl 20 MG Oral Capsule [...] noon and 1,000 mg before bedtime. Active oxyCODONE HCl 10 MG Oral Tablet (Roxicodone)Indicat ions:S/P BKA (below knee amputation) unilateral, left (HCC),Diabetic polyneuropathy associated with type 2 diabetes mellitus (HCC),Leg wound, right, initial encounter Take 1 Tablet by mouth every 6 hours as needed for Pain, Severe. 60 Tablet Active Clotrimazole 1 % External Cream (Lotrimin) Apply topically to affected area 2 times a day for 14 days. Apply to stump 60 g 1 024 04/11 Active Betamethasone Dipropionate 0.05 % External Cream (Diprosone) Apply topically to affected area 2 times a day. To affected area. 45 g 3 Active Clotrimazole 1 % External Cream (Lotrimin) Apply topically to stump area 2 times a day for 14 days. 60 g 1 03/30/20 24 12:52 PM EST Active Betamethasone Dipropionate 0.05 % External Cream (Diprosone) Apply topically to affected area twice a day. 45 g 3 03/30/20 24 12:52 PM EST Active Levothyroxine Sodium 88 MCG Oral Tablet (Levoxyl)Indication s:Hypothyroidism, unspecified type TAKE 1 TABLET BY MOUTH EVERY MORNING at least 30 minutes before breakfast or other meds 100 Tablet Active Pregabalin 50 MG Oral Capsule (Lyrica)Indications :Diabetic polyneuropathy associated with type 2 diabetes mellitus (HCC),S/P BKA (below knee amputation) unilateral, left (HCC),Leg wound, right, initial encounter Take 1 Capsule by mouth in the morning and 1 Capsule at noon and 1 Capsule before bedtime. 90 Capsule 024 Active Pregabalin 50 MG Oral Capsule (Lyrica)Indications :Diabetic polyneuropathy associated with type 2 diabetes mellitus (HCC),S/P BKA (below knee amputation) unilateral, left (HCC),Leg wound, right, initial encounter Take 1 Capsule by mouth in the morning and 1 Capsule at noon and 1 Capsule before bedtime. 60 Capsule 024 04/02 Discontinued( Refill) Vitamin D (Ergocalciferol) 1.25 MG (12327 UT) Oral Capsule (Drisdol) TAKE ONE CAPSULE BY MOUTH EVERY WEEK 12 Capsule 024 04/04 Discontinued documented as of this encounter (statuses as of 04/04/2024) Active Problems Problem Noted Date Diagnosed Date [...] (07/04/2019): Added automatically from request for surgery [id number] 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 [...] as of this encounter (statuses as of 04/04/2024) Resolved Problems Problem Noted Date Diagnosed Date [...] Silent myocardial infarction 03/23/2013 11/08/2018 Accelerate Clinical Trial*[id number] 01/24/2013 05/16/2015 Overview (01/24/2013): ACCELERATE STUDY. Project # [id number], AGGREGATE CONVEYOR OPERATOR: Ben Hoover MD. CRC: DEBORAH Back. SUMMARY: To test the hypothesis that Evacetrapib 130 mg, in comparison to placebo, reduces the risk of major adverse coronary events in high-risk vascular disease patients. CONTACTS: During normal business hours, contact study staff at ; after hours Bioinformatics Developer via the [facility] canning machine operator [phone]. 24-hour Global Study Helpline: [phone]. Lipid levels should not be ordered/obtained while this subject is in the Accelerate study. Lipids are being managed in a blinded fashion. If lipid levels are inadvertently obtained, it is important that test results are NOT provided to the patient, study doctor, study director, or other study team members. Restricted meds while in the study: 1) niacin > 250 mg, 2) gemfibrozil with a potent [id number]. NINA on CPAP 06/28/2012 01/31/2020 Overview (06/28/2012): [...] as of this encounter (statuses as of 04/04/2024) Immunizations Name Administration Dates Next Due COVID-19 [...] Telephone Encounter - David Maya DO - 04/04/2024 12:55 PM ESTSigned Prescriptions: Disp Refills Pregabalin 50 MG Oral Capsule (Lyrica) 90 Cap*0 Sig: Take 1 Capsule by mouth in the morning and 1 Capsule at noon and 1 Capsule before bedtime. Authorizing Provider: DAVID MAYA * Telephone Encounter - Aurea Jimenez [facility] - 04/03/2024 7:35 PM ESTPending Prescriptions: Disp Refills Pregabalin 50 MG Oral Capsule (Lyrica) 90 Cap*0 Sig: Take 1 Capsule by mouth in the morning and 1 Capsule at noon and 1 Capsule before bedtime. * Telephone Encounter - Aurea Jimenez [facility] - 04/03/2024 7:33 PM EST I have reviewed the patients controlled substance dispensing history in the Prescription Drug Monitoring Program in compliance with the [facility] regulations before prescribing a controlled substance. PDMP checked on 04/03/2024. Pending Prescriptions: Disp Refills Pregabalin 50 MG Oral Capsule (Lyrica) 90 Cap*0 Sig: Take 1 Capsule by mouth in the morning and 1 Capsule at noon and 1 Capsule before bedtime. Last Visit: 02/29/2024 (in office), 12/15/2023 (telemedicine) Next Visit: Visit date not found Date medication was last filled: 01/01/24 Date medication is due for refill: 01/21/24 Pharmacy: [id number] [facility] [place] Is this request for a controlled substance? Yes and Urine Drug Screen Not completed Toxicology results: No results found. However, due to the size of the patient record, not all encounters were searched.Please check Results Review for a complete set of results. Please approve if appropriate. Thank you, Aurea Jimenez, PharmD Clinical Pharmacist [facility] Services ([facility]) 04/03/24 7:33 PM [phone] documented in this encounter Plan of Treatment Upcoming Encounters Date Type Department Care Team (Late st Contact Info) Description 04/13/2024 6:00 AM EST Anticoagulation [facility], Renee Wise [address] [place] [address] [place] [address] [facility] [place], [address] [place] [address] 04/13/2024 7:10 AM EST Laboratory Lab Mobile Phlebotomy [facility] [address] [place] [address] [facility], Gml Mobile Home Draw [address] [place] [address] 05/11/2024 2:00 PM EST Office Visit Infectious Disease [facility] [address] [facility] [place] [address] Sherry Roy MD [address] [place] [address] 05/26/2024 10:30 AM EST Telemedicine [facility] [place] [address] [place] [address] Carolee Manriquez PA-C [address] [place] [address] Edna Baum, [facility] Spacer Type Bar And Segment [address] [place] [address] 07/11/2024 9:50 AM EDT Office Visit [facility] Patricia [address] [place] [phone] David Maya DO [address] [place] [address] Scheduled Procedures Name Priority Associated Diagnoses Date/Ti [...] Additional history exists CKD PHOS USE SMARTSET 99550 06/03/2024 02/0 10/2023, 11/06/2021, 09/12/2020, Additional history exists HbA1c 06/04/2024 12/03/2023, 07/26, 03/27/2023, Additional history exists Albumin/Creatinine Ratio 06/19/2024 024, 08/15/2022, 11/06/2021, Additional history exists Depression Monitoring 09/07/2024 09/08/2023 GFR 09/28/2024 03/30/2024, 1205/2023, 03/21/2024, Additional history exists TSH 02/25/2025 02/26/2024, 1006/2023, 09/24/2023, Additional history exists CKD HGB USE SMARTSET 95388 03/30/202503/30, 03/28/2024, 03/21/2024, Additional history exists DTap/Tdap Vaccines (3 - [...] as of this encounter Visit Diagnoses Diagnosis Diabetic polyneuropathy associated with type 2 diabetes mellitus (HCC) S/P BKA (below knee amputation) unilateral, left (HCC) Leg wound, right, initial encounter documented [...] the patient have Health Care Power of Bender Helper? Yes, not currently available * Full Code [...] Agents on File Name Relationship Healthcare Agent Relationsnd p Communication Maurydarcyelijah Lyle Adult Child [facility] re Agent Xi Lyle Adult Child Health Care Agent Care Teams Process Control Technician Relationship Specialty Start Date End Date David Maya DO [address] [place] [address] PCP - General Family Medicine 11/12/11 documented as of this encounter
--- OUTSIDE RECORDS SUMMARY | 2024-05-24 05:17 | External Medical Summary | Summary of Care ---
Author Name Unknown Organization [facility] Address [address] [facility] [place] [address] Phone [phone] Care Team Providers Care General Maintenance Technician Name Role Phone David Maya DO Primary Care Provider + [phone] Reason for Visit * Reason Comments eRx-Medication Refill Encounter Details Date Type Department Care Team (Late st Contact Info) Description 04/01/[address] [address] David Maya DO [address] [facility] [place] [address] Hypothyroidism, unspecified type Allergies Active Allergy Reactions Criticality Noted Date [...] daily. 30 Cap 5 Active Glucose Blood (Zyme SolutionsTOUCH VERIO) STRP USE TO TEST BLOOD [...] chronicity,Heart failure, systolic, due to CAD ([facility]) Bariatric heavy duty walker- 2 wheels- please document patient's weight at 308 1 Each Active DIURETIC TITRATION PLANIndications:Hea rt failure, systolic, due to CAD ([facility]) If no improvement on [...] mouth daily. With food. 100 Tablet 5 12/17/2 021 Active Acetaminophen 325 MG Oral Tablet (Tylenol) Take 2 Tablets by mouth as needed (for mild to moderate reaction (infusion reaction protocol)). 2 Tablet 021 Active Meclizine HCl 12.5 MG Oral Tablet (Antivert) Take by mouth 1 Tablet as needed in the morning AND 1 Tablet as needed at noon AND 1 Tablet as needed in the evening for Dizziness. 30 Tablet 022 Active Fluticasone Propionate 50 MCG/ACT Nasal SuspensionIndicatio [...] g 1 03/30/20 24 12:52 PM EST 024 Active Betamethasone Dipropionate 0.05 % External Cream (Diprosone) Apply topically to affected area twice a day. 45 g 3 03/30/20 24 12:52 PM EST 024 Active Vitamin D (Ergocalciferol) 1.25 MG (40921 UT) Oral Capsule (Drisdol) TAKE ONE CAPSULE BY MOUTH EVERY WEEK 12 Capsule Active Levothyroxine Sodium 88 MCG Oral Tablet (Levoxyl)Indication s:Hypothyroidism, unspecified type TAKE 1 TABLET BY MOUTH EVERY MORNING at least 30 minutes before breakfast or other meds 100 Tablet Active Levothyroxine Sodium 88 MCG Oral Tablet (Levoxyl)Indication s:Hypothyroidism, unspecified type TAKE ONE TABLET BY MOUTH IN THE MORNING AT LEAST 30 MINS PRIOR TO BREAKFAST OR OTHER MEDS 100 Tablet 5 023 04/03 Discontinued Pregabalin 50 MG Oral Capsule (Lyrica)Indications :Diabetic polyneuropathy associated with type 2 diabetes mellitus (HCC),S/P BKA (below knee amputation) unilateral, left (HCC),Leg wound, right, initial encounter Take 1 Capsule by mouth in the morning and 1 Capsule at noon and 1 Capsule before bedtime. 60 Capsule 024 04/02 Discontinued( Refill) Vitamin D (Ergocalciferol) 1.25 MG (92031 UT) Oral Capsule (Drisdol) TAKE ONE CAPSULE [...] (07/04/2019): Added automatically from request for surgery [id number] 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 [...] Silent myocardial infarction 03/23/2013 11/08/2018 Accelerate Clinical Trial*[id number] 01/24/2013 05/16/2015 Overview (01/24/2013): ACCELERATE STUDY. Project # [id number], THRESHING DEPARTMENT SUPERVISOR: Ben Hoover MD. CRC: DEBORAH Back. SUMMARY: To test the hypothesis that Evacetrapib 130 mg, in comparison to placebo, reduces the risk of major adverse coronary events in high-risk vascular disease patients. CONTACTS: During normal business hours, contact study staff at ; after hours Qa Developer via the [facility] hospital industrial twisting machine operator [phone]. 24-hour Global Study Helpline: [phone]. Lipid levels should not be ordered/obtained while this subject is in the Accelerate study. Lipids are being managed in a blinded fashion. If lipid levels are inadvertently obtained, it is important that test results are NOT provided to the patient, study doctor, regulatory compliance coordinator, or other study team members. Restricted meds while in the study: 1) niacin > 250 mg, 2) gemfibrozil with a potent [id number]. NINA on CPAP 06/28/2012 01/31/2020 Overview (06/28/2012): [...] Encounter - David Maya DO - 04/04/2024 12:46 PM ESTSigned Prescriptions: Disp Refills Vitamin D (Ergocalciferol) 1.25 MG (55975 *12 Cap*0 Sig: TAKE ONE CAPSULE BY MOUTH EVERY WEEK Authorizing Provider: DAVID MAYA Levothyroxine Sodium 88 MCG Oral Tablet (L*100 Ta*0 Sig: TAKE 1 TABLET BY MOUTH EVERY MORNING at least 30 minutes before breakfast or other meds Authorizing Provider: DAVID MAYA Ordering Use r: KRISTOPHER PEREZ * Telephone Encounter - Kristopher Perez [facility] - 04/03/2024 7:24 PM ESTPending Prescriptions: Disp Refills Vitamin D (Ergocalciferol) 1.25 MG (55314 *12 Cap*0 Sig: TAKE ONE CAPSULE BY MOUTH EVERY WEEK Signed Prescriptions: Disp Refills Levothyroxine Sodium 88 MCG Oral Tablet (L*100 Ta*0 Sig: TAKE 1 TABLET BY MOUTH EVERY MORNING at least 30 minutes before breakfast or other meds Authorizing Provider: DAVID MAYA Ordering User: KRISTOPHER PEREZ * Telephone Encounter - Kristopher Perez [facility] - 04/03/2024 7:[address] [facility] is currently not authorized to approve refills for the pended medication(s) per refill protocol. Please approve if appropriate. Kristopher Duong [facility] Clinical Pharmacist 04/03/2024, 7:24 PM * Telephone Encounter - Interface, [facility] In[facility] - 04/03/2024 12:13 PM EST Pending Prescriptions: Disp Refills Vitamin D (Ergocalciferol) 1.25 MG (34445 *12 Cap*0 Sig: TAKE ONE CAPSULE BY MOUTH EVERY WEEK Levothyroxine Sodium 88 MCG Oral Tablet [P*100 Ta*0 Sig: TAKE 1 TABLET BY MOUTH EVERY MORNING at least 30 minutes before breakfast or other meds documented in this encounter Plan of Treatment Upcoming Encounters Date Type Department Care Team (Late st Contact Info) Description 04/13/2024 6:00 AM EST Anticoagulation [facility] Clinical [facility]acy Services, Renee Wise [address] [place] [address] [place] [address] [facility], [address] [place] [address] 04/13/2024 7:10 AM EST Laboratory Lab Mobile Phlebotomy [facility] [address] [place] [address] [place] [address] [facility], Gml Mobile Home Draw [address] [place] [address] [place] [address] 05/11/2024 2:00 PM EST Office Visit [facility] Disease [facility] [address] Sherry Roy MD [address] [place] [address] 05/26/2024 10:30 AM EST Telemedicine [facility] [place], [place] [address] [place] [address] Carolee Manriquez PA-C [address] [place] [address] Edna Baum Community Health Support Teacher [address] [place] [address] 07/11/2024 9:50 AM EDT Office Visit [facility] [address] [place] [address] David Maya, DO [address] [place] [address] Scheduled Procedures Name Priority Associated Diagnoses Date/Ti [...] Additional history exists CKD PHOS USE SMARTSET 05807 06/03/2024 02/0 10/2023, 11/06/2021, 09/12/2020, Additional history exists HbA1c 06/04/2024 12/03/2023, 07/26, 03/27/2023, Additional history exists Albumin/Creatinine Ratio 06/19/2024 024, 08/15/2022, 11/06/2021, Additional history exists Depression Monitoring 09/07/2024 09/08/2023 GFR 09/28/2024 03/30/2024, 05/2023, 03/21/2024, Additional history exists TSH 02/25/2025 02/26/2024, 100 06/2023, 09/24/2023, Additional history exists CKD HGB USE SMARTSET 01290 03/30/202503/30, 03/28/2024, 03/21/2024, Additional history exists DTap/Tdap [...] as of this encounter Visit Diagnoses Diagnosis Hypothyroidism, unspecified type documented in this encounter Advance Directives * [...] the patient have Health Care Power of Ginning Operator? Yes, not currently available * Full [...] Relationshi p Communication Omar Lyle Adult Child [facility] [place] re Agent Xi Valdo Adult Child [facility] Care Agent Care Teams General Maintenance Technician Relationship Specialty Start Date End Date David Maya DO [address] [place] [address] PCP - General Family Medicine 11/12/11 documented as of this encounter
--- OUTSIDE RECORDS SUMMARY | 2024-05-24 05:17 | External Medical Summary | Summary of Care ---
Author Name Unknown Organization [facility] Address [address] [facility] [place] [address] Phone [phone] Care Team Providers Care Product Support Technician Name Role Phone Sherry Maya DO Primary Care Provider + [phone] Reason for Visit * Reason Onset Date Comments Fax 04/06/2024 Sukumar Cormier ceived two faxes Encounter Details Date Type Department Care Team (Late st Contact Info) Description 04/06/2024 Telephone [facility] [address] [facility] [place] [address] Sherry Maya, 226 [facility] [place], [place] [phone] Fax (Sukumar Simonsands/Received two faxes) Allergies Active Allergy Reactions Criticality Noted Date Comments Benzonatate 12/08/2016 choking Keyanna Pedraza Other (Please comment) High 04/10/20 09 Choking documented as of this encounter (statuses as of 04/06/2024) Medications ONETOUCH LANCETS MISCIndications:DM type 2, not at goal (HCC) 3 Box Dosing Unit 1 04/17/20 15 Active Nitroglycerin 0.4 MG Sublingual Tablet Sublingual Place under the tongue every 5 minutes as needed. Up to 3 in 15 minutes. 25 Tab 11 04/17/20 15 Active Magnesium Oxide 400 MG CapsuleIndications:H eart failure, systolic, due to CAD ([facility]),Automatic implantable cardioverter-defibri llator in situ,Chronic ischemic heart disease,Ischemic cardiomyopathy Take 1 Cap by mouth daily. 30 Cap 5 03/16/20 17 Active Glucose Blood (VeeipTOUCH VERIO) STRP USE TO TEST BLOOD GLUCOSE 8 TIMES A DAY 800 Strip 3 03/18/20 19 Active Insulin Aspart 100 UNIT/ML Injection Solution Inject under the skin. FOR USE IN PUMP Active TapFameTouch Verio Flex System w/Device Kit Use as [...] Active WalkerIndications:Os teomyelitis of foot, left, acute ([facility]),Diabetic polyneuropathy associated with diabetes mellitus due to underlying condition ([facility]),Ulcer of right foot with necrosis of muscle ([facility]),Right knee pain, unspecified chronicity,Heart failure, systolic, due to CAD ([facility]) Bariatric heavy duty walker- 2 wheels- please document patient's weight at 308 1 Each 02/08/20 Active DIURETIC TITRATION PLANIndications:Hear t failure, systolic, due to CAD ([facility]) If no improvement on day 3, contact [...] polyneuropathy associated with type 2 diabetes mellitus ([facility]),Leg wound, right, initial encounter Take 1 Tablet by mouth every 6 hours as needed for Pain, Severe. 60 Tablet 04/04/20 24 Active Vitamin D (Ergocalciferol) 1.25 MG (45098 UT) Oral Capsule (Drisdol) TAKE ONE CAPSULE [...] as of this encounter (statuses as of 04/06/2024) Active Problems Problem Noted Date Diagnosed Date [...] (07/04/2019): Added automatically from request for surgery [id number] 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 [...] as of this encounter (statuses as of 04/06/2024) Resolved Problems Problem Noted Date Diagnosed Date [...] Silent myocardial infarction 03/23/2013 11/08/2018 Accelerate Clinical Trial*[id number] 01/24/2013 05/16/2015 Overview (01/24/2013): ACCELERATE STUDY. Project # [id number], REPAIRER: Ben Hoover MD. CRC: DEBORAH Back. SUMMARY: To test the hypothesis that Evacetrapib 130 mg, in comparison to placebo, reduces the risk of major adverse coronary events in high-risk vascular disease patients. CONTACTS: During normal business hours, contact study staff at ; after hours Job Service Consultant via the [facility] hospital diesel dragline operator [phone]. 24-hour Global Study Helpline: [phone]. Lipid levels should not be ordered/obtained while this subject is in the Accelerate study. Lipids are being managed in a blinded fashion. If lipid levels are inadvertently obtained, it is important that test results are NOT provided to the patient, study doctor, medical education coordinator, or other study team members. Restricted meds while in the study: 1) niacin > 250 mg, 2) gemfibrozil with a potent [id number]. NINA on CPAP 06/28/2012 01/31/2020 Overview (06/28/2012): [...] as of this encounter (statuses as of 04/06/2024) Immunizations Name Administration Dates Next Due COVID-19 [...] No 01/08/2021 1:48 AM EDT Gaurav Redd W, RN * Are you blind or [...] Telephone Encounter - Cassi Toro LPN - 04/06/2024 2:39 PM EST Received Fax for BFPROVIDERS: Dr. Sherry Maya ORDER received from [facility] and FAXED documented in this encounter Plan of Treatment Upcoming Encounters Date Type Department Care Team (Late st Contact Info) Description 04/13/2024 6:00 AM EST Anticoagulation Centralized Clinical Pharmacy Services, Renee Wsie [address] [place] [address] [place] [address] [place] [address] 04/13/2024 7:10 AM EST Laboratory Lab Mobile Phlebotomy [facility] [address] [place] [address] Mvmg, Gml Mobile Home Draw [address] [place] [address] 05/11/2024 2:00 PM EST Office Visit Infectious Disease [facility] [place] [address] [place] [address] Sherry Roy MD [address] [place] [address] 05/26/2024 10:30 AM EST Telemedicine [facility], [place] [address] [place] [address] Carolee Manriquez PA-C [address] [place] [address] Edna Bamu, Community Health Rn Telephonic [address] [place] [address] 07/11/2024 9:50 AM EDT Office Visit [facility] [address] [place] [address] Sherry Maya DO [address] [place] [address] Scheduled Procedures Name Priority Associated Diagnoses Date/Ti [...] Additional history exists CKD PHOS USE SMARTSET 66208 06/03/2024 02/0 10/2023, 11/06/2021, 09/12/2020, Additional history exists HbA1c 06/04/2024 12/03/2023, 04/1 , 03/27/2023, Additional history exists Albumin/Creatinine Ratio 06/19/2024 024, 08/15/2022, 11/06/2021, Additional history exists Depression Monitoring 09/07/2024 09/08/2023 GFR 10/03/2024 04/04/2024, 12/0 07/2023, 03/28/2024, Additional history exists TSH 02/25/2025 02/26/2024, 10/0 06/2023, 09/24/2023, Additional history exists CKD HGB USE SMARTSET 12797 04/04/202504/04, 03/30/2024, 03/28/2024, Additional history exists DTap/Tdap [...] the patient have Health Care Power of Ops Analyst? Yes, not currently available * Full [...] on File Name Relationship Healthcare Agent [facility] Communication Maurymemo Valdo Adult Child [facility] re Agent Xi Lyle Adult Child [facility] Care Agent Care Teams Product Support Technician Relationship Specialty Start Date End Date Sherry Maya DO [address] [place] [address] PCP - General Family Medicine 11/12/11 documented as of this encounter
--- OUTSIDE RECORDS SUMMARY | 2024-05-24 05:17 | External Medical Summary | Summary of Care ---
Author Name Unknown Organization [facility] Address [address] [facility] [place] [address] Phone [phone] Care Team Providers Care Windows System Admin Name Role Phone Sherry Maya DO Primary Care Provider + [phone] Reason for Visit * Reason Onset Date Comments Medication Refill 04/04/2024 Encounter Details Date Type Department Care Team (Late st Contact Info) Description 04/04/[address] [address] Sherry Maya DO [address] [place] [address] S/P BKA (below knee amputation) unilateral, left (HCC); Diabetic polyneuropathy associated with type 2 diabetes mellitus (HCC); Leg wound, right, initial encounter Allergies Active Allergy Reactions Criticality Noted Date Comments Benzonatate 12/08/2016 choking Keyanna Pedraza Other (Please comment) High 04/10/20 09 Choking documented as of this encounter (statuses as of 04/05/2024) Medications ONETOUCH LANCETS MISCIndications:DM type 2, not at goal ([facility]) 3 Box Dosing Unit 1 04/17/20 15 Active Nitroglycerin 0.4 MG Sublingual Tablet Sublingual Place under the tongue every 5 minutes as needed. Up to 3 in 15 minutes. 25 Tab 11 04/17/20 15 Active Magnesium Oxide 400 MG CapsuleIndications:H eart failure, systolic, due to CAD ([facility]),Automatic implantable cardioverter-defibri llator in situ,Chronic ischemic heart disease,Ischemic cardiomyopathy Take 1 Cap by mouth daily. 30 Cap 5 03/16/20 17 Active Glucose Blood (Ncube WorldTOUCH VERIO) STRP USE TO TEST BLOOD GLUCOSE 8 TIMES A DAY 800 Strip 3 03/18/20 Active Insulin Aspart 100 UNIT/ML Injection Solution Inject under the skin. FOR USE IN PUMP Active LalalamaToGetix Verio Flex System w/Device Kit Use as [...] Active WalkerIndications:Os teomyelitis of foot, left, acute ([facility]),Diabetic polyneuropathy associated with diabetes mellitus due to underlying condition ([facility]),Ulcer of right foot with necrosis of muscle ([facility]),Right knee pain, unspecified chronicity,Heart failure, systolic, due to CAD ([facility]) Bariatric heavy duty walker- 2 wheels- please document patient's weight at 308 1 Each 02/08/20 Active DIURETIC TITRATION PLANIndications:Hear t failure, systolic, due to CAD ([facility]) If no improvement on day 3, [...] ons:S/P BKA (below knee amputation) unilateral, left ([facility]) Apply topically to affected area as needed [...] 1,000 mg before bedtime. 02/19/20 24 Active Clotrimazole 1 % External Cream [...] 24 Active Vitamin D (Ergocalciferol) 1.25 MG (97486 UT) Oral Capsule (Drisdol) TAKE ONE CAPSULE [...] as of this encounter (statuses as of 04/05/2024) Active Problems Problem Noted Date Diagnosed Date [...] (07/04/2019): Added automatically from request for surgery [id number] 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 [...] as of this encounter (statuses as of 04/05/2024) Resolved Problems Problem Noted Date Diagnosed Date [...] Silent myocardial infarction 03/23/2013 11/08/2018 Accelerate Clinical Trial*[id number] 01/24/2013 05/16/2015 Overview (01/24/2013): ACCELERATE STUDY. Project # [id number], REGIONAL SAFETY MANAGER: Ben Hoover MD. CRC: DEBORAH Back. SUMMARY: To test the hypothesis that Evacetrapib 130 mg, in comparison to placebo, reduces the risk of major adverse coronary events in high-risk vascular disease patients. CONTACTS: During normal business hours, contact study staff at ; after hours Surveying Crew Stake Runner via the [facility] hospital breaker up machine operator [phone]. 24-hour Global Study Helpline: [phone]. Lipid levels should not be ordered/obtained while this subject is in the Accelerate study. Lipids are being managed in a blinded fashion. If lipid levels are inadvertently obtained, it is important that test results are NOT provided to the patient, study doctor, cosmetic account coordinator, or other study team members. Restricted meds while in the study: 1) niacin > 250 mg, 2) gemfibrozil with a potent [id number]. NINA on CPAP 06/28/2012 01/31/2020 Overview (06/28/2012): [...] as of this encounter (statuses as of 04/05/2024) Immunizations Name Administration Dates Next Due COVID-19 [...] encounter Miscellaneous Notes * Telephone Encounter - Manuel Jalloh [facility] - 04/05/2024 5:52 PM ESTRefused Prescriptions: Disp Refills oxyCODONE HCl 10 MG Oral Tablet (Roxicodon*60 Tab*0 Sig: Take 1Tablet by mouth every 6 hours as needed for Pain, Severe.Refused By: MANUEL JALLOHon for Refusal: Duplicate Request documented in this encounter Plan of Treatment Upcoming Encounters Date Type Department Care Team (Late st Contact Info) Description 04/13/2024 6:00 AM EST Anticoagulation [facility] Clinical Pharmacy Services, Renee Wise [address] [place] [address] [place] [address] [place] [address] 04/13/2024 7:10 AM EST Laboratory Lab Mobile Phlebotomy [facility] [address] [facility] [place] [address] Mvmg, Gml Mobile Home Draw [address] [facility] [place] [address] 05/11/2024 2:00 PM EST Office Visit Infectious Disease [facility] [place] [facility] [place] [address] Sherry Roy MD [address] [place] [address] 05/26/2024 10:30 AM EST Telemedicine [facility], [place] [address] [place] [address] Carolee Manriquez PA-C [address] [place] [address] Edna Baum, Community Health Rock Wool Insulator [address] [place] [address] 07/11/2024 9:50 AM EDT Office Visit [facility] 226 [facility] [address] Sherry Maya DO 226 [facility] [place] [address] Scheduled Procedures Name Priority Associated Diagnoses Date/Ti [...] Additional history exists CKD PHOS USE SMARTSET 83940 06/03/2024 02/0 10/2023, 11/06/2021, 09/12/2020, Additional history exists HbA1c 06/04/2024 12/03/2023, 07/26, 03/27/2023, Additional history exists Albumin/Creatinine Ratio 06/19/2024 024, 08/15/2022, 11/06/2021, Additional history exists Depression Monitoring 09/07/2024 09/08/2023 GFR 09/28/2024 03/30/2024, 1205/2023, 03/21/2024, Additional history exists TSH 02/25/2025 02/26/2024, 06/2023, 09/24/2023, Additional history exists CKD HGB USE SMARTSET 33166 03/30/202503/30, 03/28/2024, 03/21/2024, Additional history exists DTap/Tdap [...] the patient have Health Care Power of Maintenance Worker? Yes, not currently available * Full [...] Relationshi p Communication Omar Valdo Adult Child [facility] re Agent Xi Mckeont Adult Child Health Care Agent Care Teams Windows System Admin Relationship Specialty Start Date End Date Sherry Maya, DO [address] [place] [address] PCP - General Family Medicine 11/12/11 documented as of this encounter
--- OUTSIDE RECORDS SUMMARY | 2024-05-24 05:17 | External Medical Summary | Summary of Care ---
Author Name Unknown Organization [facility] Address [address] [facility] [place] [address] Phone [phone] Care Team Providers Care Surgical Assistant Name Role Phone Sherry Maya DO Primary Care Provider + [phone] Encounter Details Date Type Department Care Team (Late st Contact Info) Description 04/06/2024 Orders Only [facility] [address] [facility] [place] [address] Sherry Maya DO 226 [facility] [place] [address] Allergies Active Allergy Reactions Criticality Noted Date [...] by mouth daily. 30 Cap 5 03/16/20 Active Glucose Blood (BlikBookTOUCH VERIO) STRP USE TO TEST BLOOD GLUCOSE [...] diabetes mellitus due to underlying condition ([facility]),Ulcer of right foot with necrosis of muscle ([facility]),Right knee pain, unspecified chronicity,Heart failure, systolic, due to CAD ([facility]) Bariatric heavy duty walker- 2 wheels- please document patient's weight at 308 1 Each 02/08/20 Active DIURETIC TITRATION PLANIndications:Hear t failure, systolic, due to CAD ([facility]) If no improvement on day 3, contact [...] 100,DM type 2, not at goal ([facility]),Diabetic polyneuropathy associated with type 1 diabetes mellitus (HCC),HTN, goal below 130/80,Abnormal electrocardiogram Take 1 Tablet by mouth daily. With food. 100 Tablet 5 12/17/20 21 Active Acetaminophen 325 MG Oral Tablet (Tylenol) [...] by mouth in the morning. 100 Capsule 06/03/19 24 Active Triamcinolone Acetonide 0.1 % [...] 24 Active Vitamin D (Ergocalciferol) 1.25 MG (82431 UT) Oral Capsule (Drisdol) TAKE ONE CAPSULE [...] (07/04/2019): Added automatically from request for surgery [id number] 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 [...] Silent myocardial infarction 03/23/2013 11/08/2018 Accelerate Clinical Trial*[id number] 01/24/2013 05/16/2015 Overview (01/24/2013): ACCELERATE STUDY. Project # [id number], YOUTH MANAGER: Ben Hoover MD. CRC: DEBORAH Back. SUMMARY: To test the hypothesis that Evacetrapib 130 mg, in comparison to placebo, reduces the risk of major adverse coronary events in high-risk vascular disease patients. CONTACTS: During normal business hours, contact study staff at ; after hours Senior Recruitment Consultant via the [facility] hospital photocomposition keyboard operator [phone]. 24-hour Global Study Helpline: [phone]. Lipid levels should not be ordered/obtained while this subject is in the Accelerate study. Lipids are being managed in a blinded fashion. If lipid levels are inadvertently obtained, it is important that test results are NOT provided to the patient, study doctor, sales recruiting coordinator, or other study team members. Restricted meds while in the study: 1) niacin > 250 mg, 2) gemfibrozil with a potent [id number]. NINA on CPAP 06/28/2012 01/31/2020 Overview (06/28/2012): [...] Gaurav Redd RN documented in this encounter Plan of Treatment Upcoming Encounters Date Type Department Care Team (Late st Contact Info) Description 04/13/2024 6:00 AM EST Anticoagulation Centralized Clinical Pharmacy Services, Renee Wise [address] [place] [address] [place] [address] [place] [address] 04/13/2024 7:10 AM EST Laboratory Lab Mobile Phlebotomy [facility] [address] [place] [address] M[facility], Gml Mobile Home Draw [address] [facility] [place] [address] 05/11/2024 2:00 PM EST Office Visit Infectious Disease [facility] [address] [facility] [place] [address] Sherry Roy MD [address] [place] [address] 05/26/2024 10:30 AM EST Telemedicine [facility], Ethan [address] [place] [address] Carolee Manriquez PA-C [address] [place] [address] Edna Baum, Community Health Observer [employer] [address] [place] [address] 07/11/2024 9:50 AM EDT Office Visit [facility] 226 [facility] [place] [address] Sherry Maya DO 226 [facility] [place] [address] Scheduled Procedures Name Priority Associated Diagnoses Date/Ti [...] Additional history exists CKD PHOS USE SMARTSET 77912 06/03/202410/2023, 11/06/2021, 09/12/2020, Additional history exists HbA1c 06/04/2024 12/03/2023, 07/26, 03/27/2023, Additional history exists Albumin/Creatinine Ratio 06/19/2024 024, 08/15/2022, 11/06/2021, Additional history exists Depression Monitoring 09/07/2024 09/08/2023 GFR 10/03/2024 04/04/2024, 07/2023, 03/28/2024, Additional history exists TSH 02/25/2025 02/26/2024, 06/2023, 09/24/2023, Additional history exists CKD HGB USE SMARTSET 41070 04/04/202504/04, 03/30/2024, 03/28/2024, Additional history exists DTap/Tdap [...] Procedure Name Priority Date/Time Associated Diagnosis Comments CHEMISTRY-OUTSIDE Routine 04/04/2024 documented in this encounter Results * (ABNORMAL) CHEMISTRY-OUTSIDE (04/04/2024) Not all results display below - see scan for full detail OUTSIDE LAB (SEE SCANNED REPORT) Comment:SCAN INCLUDES - CBC, CMP, C-REACTIVE PROTEIN, CREATINE KINASE CREATININE 1.28 0.70 - 1.30 MG/DL OUTSIDE LAB (SEE SCANNED REPORT) EGFR 64 >=60 ML/MIN OUTSIDE LAB (SEE SCANNED REPORT) POTASSIUM 3.5 3.5 - 5.1 MMOL/L OUTSIDE LAB (SEE SCANNED REPORT) GLUCOSE 124(A) 70 - 110 MG/DL OUTSIDE LAB (SEE SCANNED REPORT) HOURS FASTING OUTSID E LAB (SEE SCANNED REPORT) TRIGLYCERIDES-OUT SIDE LAB OUTSIDE LAB (SEE SCANNED REPORT) CHOLESTEROL-OUTSI DE LAB OUTSIDE LAB (SEE SCANNED REPORT) HDL-OUTSIDE LAB OUTS ADY LAB (SEE SCANNED REPORT) CHOL/HDL RATIO-OUTSIDE LAB OUTSIDE LA B (SEE SCANNED REPORT) LDL (CALCULATED)-OUTS ADY LAB OUTSIDE LAB (SEE SCANNED REPORT) LDL (DIRECT MEASURE)-OUTSIDE LAB OUTSIDE LAB (SEE SCANNED REPORT) HEMOGLOBIN, K0K-TSESBLU LAB OUTSIDE LAB (SEE SCANNED REPORT) PHOSPHORUS-OUTSID E LAB OUTSIDE LAB (SEE SCANNED REPORT) PTH-OUTSIDE LAB OUTS ADY LAB (SEE SCANNED REPORT) MICROALBUMIN RATIO-OUTSIDE LAB OUTSIDE LA B (SEE SCANNED REPORT) PROTEIN, UA-OUTSIDE LAB OUTSIDE LAB (SEE SCANNED REPORT) HGB 11.4(A) 13.5 - 18.0 GM/DL OUTSIDE LAB (SEE SCANNED REPORT) 04/04/2024 us Anthony Figueroa MD LABORATORY Final Res ult OUTSIDE LAB (SEE SCANNED REPORT) documented in this encounter Advance Directives * [...] the patient have Health Care Power of Resident Care Provider? Yes, not currently available * Full Code [...] Agents on File Name Relationship Healthcare Agent [facility] p Communication Omar Lyle Adult Child [facility] re [facility] Care Agent Care Teams Surgical Assistant Relationship Specialty Start Date End Date Sherry Maya DO [address] [place], [place] [phone] PCP - General Family Medicine 11/12/11 documented as of this encounter
--- OUTSIDE RECORDS SUMMARY | 2024-05-24 05:17 | External Medical Summary | Summary of Care ---
Author Name Unknown Organization [facility] Address [address] [facility] [place] [address] Phone [phone] Care Team Providers Care Boilermaker Helper Name Role Phone Sherry Maya DO Primary Care Provider + [phone] Reason for Visit * Reason Onset Date Comments Medication Refill 03/30/2024 Encounter Details Date Type Department Care Team (Late st Contact Info) Description 03/30/[address] [address] Sherry Maya DO [address] [place] [address] S/P BKA (below knee amputation) unilateral, left (HCC); Diabetic polyneuropathy associated with type 2 diabetes mellitus (HCC); Leg wound, right, initial encounter Allergies Active Allergy Reactions Criticality Noted Date Comments Benzonatate 12/08/2016 choking Keyanna Pedraza Other (Please comment) High 04/10/20 09 Choking documented as of this encounter (statuses as of 04/04/2024) Medications ONETOUCH LANCETS MISCIndications:DM type 2, not at goal ([facility]) 3 Box Dosing Unit 1 015 Active Nitroglycerin 0.4 MG Sublingual Tablet Sublingual Place under the tongue every 5 minutes as needed. Up to 3 in 15 minutes. 25 Tab 11 12/22/2 015 Active Magnesium Oxide 400 MG CapsuleIndications: Heart failure, systolic, due to CAD ([facility]),Automatic implantable cardioverter-defibr illator in situ,Chronic ischemic heart disease,Ischemic cardiomyopathy Take 1 Cap by mouth daily. 30 Cap 5 Active Glucose Blood (Core Audio TechnologyTOUCH VERIO) STRP USE TO TEST BLOOD GLUCOSE 8 TIMES A DAY 800 Strip 3 Active Insulin Aspart 100 UNIT/ML Injection Solution Inject under the skin. FOR USE IN PUMP Active [employer] Verio Flex System w/Device Kit Use as [...] Active WalkerIndications:O steomyelitis of foot, left, acute ([facility]),Diabetic polyneuropathy associated with diabetes mellitus due to underlying condition ([facility]),Ulcer of right foot with necrosis of muscle ([facility]),Right knee pain, unspecified chronicity,Heart failure, systolic, due to CAD ([facility]) Bariatric heavy duty walker- 2 wheels- please document patient's weight at 308 1 Each Active DIURETIC TITRATION PLANIndications:Hea rt failure, systolic, due to CAD ([facility]) If no improvement on day 3, contact [...] ions:S/P BKA (below knee amputation) unilateral, left ([facility]) Apply topically to affected area as needed [...] 20 mg in afternoon 270 Tablet 3 Active Empagliflozin 10 MG Oral Tablet (Jardiance) [...] noon and 1,000 mg before bedtime. Active Clotrimazole 1 % External Cream (Lotrimin) [...] 03/30/20 24 12:52 PM EST 024 Active oxyCODONE HCl 10 MG Oral Tablet (Roxicodone)Indicat ions:S/P BKA (below knee amputation) unilateral, left (HCC),Diabetic polyneuropathy associated with type 2 diabetes mellitus (HCC),Leg wound, right, initial encounter Take 1 Tablet by mouth every 6 hours as needed for Pain, Severe. 60 Tablet Active Pregabalin 50 MG Oral Capsule (Lyrica)Indications :Diabetic polyneuropathy associated with type 2 diabetes mellitus (HCC),S/P BKA (below knee amputation) unilateral, left (HCC),Leg wound, right, initial encounter Take 1 Capsule by mouth in the morning and 1 Capsule at noon and 1 Capsule before bedtime. 60 Capsule 024 04/02 Discontinued( Refill) Vitamin D (Ergocalciferol) 1.25 MG (87959 UT) Oral Capsule (Drisdol) TAKE ONE CAPSULE BY MOUTH EVERY WEEK 12 Capsule 024 04/04 Discontinued oxyCODONE HCl 10 MG Oral Tablet (Roxicodone)Indicat ions:S/P BKA (below knee amputation) unilateral, left (HCC),Diabetic polyneuropathy associated with type 2 diabetes mellitus (HCC),Leg wound, right, initial encounter Take 1 Tablet by mouth every 6 hours as needed for Pain, Severe. 60 Tablet 024 03/30 Discontinued( Refill) documented as of this encounter (statuses as [...] (07/04/2019): Added automatically from request for surgery [id number] 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 [...] Silent myocardial infarction 03/23/2013 11/08/2018 Accelerate Clinical Trial*[id number] 01/24/2013 05/16/2015 Overview (01/24/2013): ACCELERATE STUDY. Project # [id number], SLITTER OPERATOR: Ben Hoover MD. CRC: DEBORAH Back. SUMMARY: To test the hypothesis that Evacetrapib 130 mg, in comparison to placebo, reduces the risk of major adverse coronary events in high-risk vascular disease patients. CONTACTS: During normal business hours, contact study staff at ; after hours Animal Laboratory Technician via the [facility] hospital offset duplicating machine operator [phone]. 24-hour Global Study Helpline: [phone]. Lipid levels should not be ordered/obtained while this subject is in the Accelerate study. Lipids are being managed in a blinded fashion. If lipid levels are inadvertently obtained, it is important that test results are NOT provided to the patient, study doctor, human service coordinator, or other study team members. Restricted meds while in the study: 1) niacin > 250 mg, 2) gemfibrozil with a potent [id number]. NINA on CPAP 06/28/2012 01/31/2020 Overview (06/28/2012): [...] encounter Miscellaneous Notes * Telephone Encounter - Kwame Parks MD - 04/04/2024 1:57 PM ESTSigned Prescriptions: Disp Refills oxyCODONE HCl 10 MG Oral Tablet (Roxicodon*60 Tab*0 Sig: Take 1 Tablet by mouth every 6 hours as needed for Pain, Severe. Authorizing Provider: KWAME PARKS * Telephone Encounter - Cassi Toro LPN - 04/04/2024 1:49 PM ESTPending Prescriptions: Disp Refills oxyCODONE HCl 10 MG Oral Tablet (Roxicodon*60 Tab*0 Sig: Take 1 Tablet by mouth every 6 hours as needed for Pain, Severe. * Telephone Encounter - Cassi Toro LPN - 04/04/2024 1:49 PM ESTPending Prescriptions: Disp Refills oxyCODONE HCl 10 MG Oral Tablet (Roxicodon*60 Tab*0 Sig: Take 1 Tablet by mouth every 6 hours as needed for Pain, Severe. * Telephone Encounter - Sherry Maya DO - 04/04/2024 12:43 PM EST I have not seen him , I gave him 2 weeks ago 60 oxycodone if he is needing that much he really needs evaluated. This is hard to treat without an updated examination * Telephone Encounter - Faviola Puente RN - 04/04/2024 11:10 AM EST Pt calling to check on status of refill He is currently out of oxycodone, continues with severe pain * Telephone Encounter - Radha Jacobson, [facility] - 04/01/2024 8:10 AM EST Pending Prescriptions: Disp Refills oxyCODONE HCl 10 MG Oral Tablet (Roxicodon*60 Tab*0 Sig: Take 1 Tablet by mouth every 6 hours as needed for Pain, Severe. * Telephone Encounter - Radha Jacobson RPh - 04/01/2024 8:09 AM EST I have reviewed the patients controlled substance dispensing history in the Prescription Drug Monitoring Program in compliance with the [facility] regulations before prescribing a controlled substance. PDMP checked on 04/01/2024. Pending Prescriptions: Disp Refills oxyCODONE HCl 10 MG Oral Tablet (Roxicodo*60 Tab*0 Sig: Take 1 Tablet by mouth every 6 hours as needed for Pain, Severe. Last Visit: 02/29/2024 (in office), 12/15/2023 (telemedicine) Next Visit: Visit date not found Date medication was last filled: 03/18/24 Date medication is due for refill: 04/01/24 Pharmacy: [id number] [facility] Is this request for a controlled substance? Yes and Urine Drug Screen Not completed Toxicology results: No results found. However, due to the size of the patient record, not all encounters were searched.Please check Results Review for a complete set of results. Please approve if appropriate. Thank you, Radha Jacobson, PharmD Clinical Pharmacist Centralized Clinical Pharmacy Services ([facility]) [phone] 04/01/2024, 8:09 AM documented in this encounter Plan of Treatment Upcoming Encounters Date Type Department Care Team (Late st [facility] Info) Description 04/13/2024 6:00 AM EST Anticoagulation Centralized Clinical Pharmacy Services, Renee Wise [address] [place] [address] [place] [address] [facility], [address] [place] [address] 04/13/2024 7:10 AM EST Laboratory Lab Mobile Phlebotomy [facility] [address] [facility] [place] [address] [facility], Gml Mobile Home Draw [address] [facility] [place] [address] 05/11/2024 2:00 PM EST Office Visit Infectious Disease [facility] 200 [facility] [place] [address] Sherry Roy MD [address] [place] [address] 05/26/2024 10:30 AM EST Telemedicine [facility] [address] [place] [address] Carolee Manriquez PA-C [address] [place] [address] Edna Baum, Community Health Engineering Geologist [address] [place] [address] 07/11/2024 9:50 AM EDT [facility] [place] [address] [facility] [place] [phone] Sherry Maya DO [address] [facility] [place] [address] Scheduled Procedures Name Priority Associated Diagnoses Date/Ti [...] Additional history exists CKD PHOS USE SMARTSET 69527 06/03/2024 02/0 10/2023, 11/06/2021, 09/12/2020, Additional history exists HbA1c 06/04/2024 12/03/2023, 07/26, 03/27/2023, Additional history exists Albumin/Creatinine Ratio 06/19/2024 024, 08/15/2022, 11/06/2021, Additional history exists Depression Monitoring 09/07/2024 09/08/2023 GFR 09/28/2024 03/30/2024, 12/0 05/2023, 03/21/2024, Additional history exists TSH 02/25/2025 02/26/2024, 10/0 06/2023, 09/24/2023, Additional history exists CKD HGB USE SMARTSET 20229 03/30/202503/30, 03/28/2024, 03/21/2024, Additional history exists DTap/Tdap [...] the patient have Health Care Power of [employer] Pack[employer] Platemaker? Yes, not currently available * Full Code Date Activated Date Inactivated Comments 06/08/2019 4:36 AM 06/14/2019 4:10 PM This order r eflects the patients wishes and were consensually agreed upon. Question Answer Comments Discussion of Advance Directives occurred with: Not Discussed Does the patient have a Living Will? No Does the patient have Health Care Power of Attor pabol? No Healthcare Agents on File Name Relationship Healthcare Agent Relationshi p Communication Omar Lyle Adult Child [facility] re Agent Trynea Valdo Adult Child Health Care Agent Care Teams Boilermaker Helper Relationship Specialty Start Date End Date Sherry Maya DO [address] [facility] [place] [phone] PCP - General Family Medicine 11/12/11 documented as of this encounter
--- OUTSIDE RECORDS SUMMARY | 2024-05-24 05:18 | External Medical Summary | Summary of Care ---
Author Name Unknown Organization [facility] Address [address] [facility] [place] [address] Phone [phone] Care Team Providers Care Concrete Pile Driver Operator Name Role Phone Sherry Maya DO Primary Care Provider [phone] Reason for Visit * Reason Comments Dosage Adjustment Via Phone (anticoag Cl inic) Encounter Details Date Type Department Care Team (Late st Contact Info) Description 03/31/2024 6:00 AM EST Anticoagulation Centralized Clinical Pharmacy Services, Renee Wise [address] [place] [address] [place] [address] [facility], [address] [place] [address] Anticoagulation management encounter* Allergies Active Allergy Reactions Criticality Noted Date Comments Benzonatate 12/08/2016 choking Keyanna Pedraza Other (Please comment) High 04/10/20 09 Choking documented as of this encounter (statuses as of 03/31/2024) Medications ONETOUCH LANCETS MISCIndications:DM type 2, not at goal ([facility]) 3 Box Dosing Unit 1 04/17/20 15 [...] Cap 5 03/16/20 17 Active Glucose Blood (MiniTimeTOUCH VERIO) STRP USE TO TEST BLOOD GLUCOSE 8 TIMES A DAY 800 Strip 3 03/18/20 19 Active Insulin Aspart 100 UNIT/ML Injection Solution Inject under the skin. FOR USE IN PUMP Active Mercator MedSystemsTouch Verio Flex System w/Device Kit Use as [...] unspecified chronicity,Heart failure, systolic, due to CAD ([facility]) Bariatric heavy duty walker- 2 wheels- please document patient's weight at 308 1 Each 02/08/20 Active DIURETIC TITRATION PLANIndications:Hear t failure, systolic, due to CAD ([facility]) If no improvement on day 3, contact [...] daily. With food. 100 Tablet 5 04/12/20 21 Active Acetaminophen 325 MG Oral Tablet [...] Sprays into each nostril daily.. 9.9 mL 08/06/19 22 Active Additional Information Patient not taking.Reported on 03/03/2024 Mupirocin 2 % External Ointment (Bactroban) 03/23/20 22 Active Ferrous Sulfate 325 (65 Fe) MG Oral Tablet (Feosol)Indications: Other iron deficiency anemia Take 1 Tablet by mouth in the morning and 1 Tablet before bedtime. 60 Tablet 09/16/19 23 Active Levothyroxine Sodium 88 MCG Oral Tablet (Levoxyl)Indications :Hypothyroidism, unspecified type TAKE ONE TABLET BY MOUTH IN THE MORNING AT LEAST 30 MINS PRIOR TO BREAKFAST OR OTHER MEDS 100 Tablet 01/09/20 23 Active Ammonium Lactate 12 % External [...] stump. Avoid on open wounds 60 mL 06/17/19 24 Active Atorvastatin Calcium 80 MG [...] pain 40 Tablet 2 11/30/19 24 Active Pregabalin 50 MG Oral Capsule (Lyrica)Indications: Diabetic polyneuropathy associated with type 2 diabetes mellitus (HCC),S/P BKA (below knee amputation) unilateral, left (HCC),Leg wound, right, initial encounter Take 1 Capsule by mouth in the morning and 1 Capsule at noon and 1 Capsule before bedtime. 60 Capsule 12/31/19 24 Active Vitamin D (Ergocalciferol) 1.25 MG (79945 UT) Oral Capsule (Drisdol) TAKE ONE CAPSULE BY MOUTH EVERY WEEK 12 Capsule 01/04/20 24 Active Potassium Chloride Tiffanie ER 20 [...] 1,000 mg before bedtime. 02/19/20 24 Active oxyCODONE HCl 10 MG Oral Tablet (Roxicodone)Indicati ons:S/P BKA (below knee amputation) unilateral, left (HCC),Diabetic polyneuropathy associated with type 2 diabetes mellitus (HCC),Leg wound, right, initial encounter Take 1 Tablet by mouth every 6 hours as needed for Pain, Severe. 60 Tablet 03/18/20 24 Active Clotrimazole 1 % External Cream [...] 4 12:52 PM EST 03/29/20 24 Active documented as of this encounter (statuses as of 03/31/2024) Active Problems Problem Noted Date Diagnosed Date [...] (07/04/2019): Added automatically from request for surgery [id number] 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 [...] as of this encounter (statuses as of 03/31/2024) Resolved Problems Problem Noted Date Diagnosed Date [...] Silent myocardial infarction 03/23/2013 11/08/2018 Accelerate Clinical Trial*[id number] 01/24/2013 05/16/2015 Overview (01/24/2013): ACCELERATE STUDY. Project # [id number], CONCEPT ARTIST: Ben Hoover MD. CRC: DEBORAH Back. SUMMARY: To test the hypothesis that Evacetrapib 130 mg, in comparison to placebo, reduces the risk of major adverse coronary events in high-risk vascular disease patients. CONTACTS: During normal business hours, contact study staff at ; after hours Meter Repairer Helper via the [facility] hospital nuclear equipment operator [phone]. 24-hour Global Study Helpline: [phone]. Lipid levels should not be ordered/obtained while this subject is in the Accelerate study. Lipids are being managed in a blinded fashion. If lipid levels are inadvertently obtained, it is important that test results are NOT provided to the patient, study doctor, dental scheduling coordinator, or other study team members. Restricted meds while in the study: 1) niacin > 250 mg, 2) gemfibrozil with a potent [id number]. NINA on CPAP 06/28/2012 01/31/2020 Overview (06/28/2012): [...] as of this encounter (statuses as of 03/31/2024) Immunizations Name Administration Dates Next Due COVID-19 [...] No 09/08/2023 Does the household have a [facility] source of income? (Household - for [...] documented in this encounter Progress Notes * Ninoska Johnston CPhT - 03/31/2024 9:32 AM EST Contacts Contact Date/Time Type Contact Phone/Fax 03/31/2024 09:31 AM EST Phone (Outgoing) Ben Lyle (Self) [phone] (M) Left Message Subjective Advised patient to contact Anticoagulation Clinic if any unusual bruising or bleeding, recent illness, changes in medication, or questions/concerns. PT/INR results, Coumadin dose instructions, and next PT/INR date communicated as noted by Pharmacist: Yes NINOSKA JOHNSTON CPhT 03/31/2024, 9:32 AM * Jaimee Gandhi [facility] - 03/31/2024 8:50 AM EST Images from the original note were not included. Coumadin Clinic (region specific) Objective Current Warfarin Dose As of 03/31/2024 Warfarin maintenance plan: 2 mg (2 mg x 1) every Mon, Sarah, Sat; 4 mg (2 mg x 2) all other days INR Result As of 03/31/2024 INR goal: 2.0-3.0 INR used for dosin.4 (03/30/2024) Assessment & Plan Warfarin Plan As of 03/31/2024 Full warfarin instructions: 03/31: Hold; 04/01: Hold; Otherwise 4 mg every Tue, Wed, Fri; 2 mg all other days Next INR check: 04/12/2024 Repeat PT/INR in 1.5 week(s) Weekly dose: decreased Additional Dosing Information: [facility] has 5mg and 1mg tabs) Tech to contact patient with dose instructions as noted. Jaimee Gandhi RPh 03/31/2024, 8:50 AM documented in this encounter Plan of Treatment Upcoming Encounters Date Type Department Care Team (Late st Contact Info) Description 04/12/2024 7:00 AM EST Laboratory Lab Mobile Phlebotomy [facility] [address] [place] [address] [facility], Gml Mobile Home Draw [address] [place] [address] 04/13/2024 6:00 AM EST Anticoagulation Centralized Clinical Pharmacy Services, Renee Wise [address] [place] [address] [place] [address] [place] [address] 05/11/2024 2:00 PM EST [facility] [address] [facility] [place] [address] Sherry Roy MD [address] [place] [address] 05/26/2024 10:30 AM EST Telemedicine [facility], [place] [address] [place] [address] Carolee Manriquez PA-C [address] [place] [address] Edna Baum, Community Health Paste Up Worker [address] [place] [address] 07/11/2024 9:50 AM EDT Office Visit [facility] [address] [facility] [place] [address] Sherry Maya DO [address] [facility] [place] [address] Scheduled Procedures Name Priority Associated Diagnoses Date/Ti [...] Additional history exists CKD PHOS USE SMARTSET 38692 06/03/202410/2023, 11/06/2021, 09/12/2020, Additional history exists HbA1c 06/04/2024 12/03/2023, 07/26, 03/27/2023, Additional history exists Albumin/Creatinine Ratio 06/19/2024 024, 08/15/2022, 11/06/2021, Additional history exists Depression Monitoring 09/07/2024 09/08/2023 GFR 09/28/2024 03/30/2024, 05/2023, 03/21/2024, Additional history exists TSH 02/25/2025 02/26/2024, 06/2023, 09/24/2023, Additional history exists CKD HGB USE SMARTSET 37981 03/30/202503/30, 03/28/2024, 03/21/2024, Additional history exists DTap/Tdap [...] the patient have Health Care Power of Turbine Engineer? Yes, not currently available * Full Code [...] Lyle Adult Child [facility] re Agent [facility] Care Agent Care Teams Concrete Pile Driver Operator Relationship Specialty Start Date End Date Sherry Maya DO [address] [place] [address] PCP - General Family Medicine 11/12/11 documented as of this encounter
--- OUTSIDE RECORDS SUMMARY | 2024-05-24 05:18 | External Medical Summary | Summary of Care ---
Author Name Unknown Organization [facility] Address [address] [facility] [place] [address] Phone [phone] Care Team Providers Care Radial Drill Operator For Plastic Name Role Phone Sherry Maya DO Primary Care Provider + [phone] Reason for Visit * Reason Onset Date Comments Fax 04/01/2024 [facility] Encounter Details Date Type Department Care Team (Late st Contact Info) Description 04/01/2024 Telephone [facility] [address] [facility] [address] Sherry Maya, [address] [facility] [place], [place] [phone] Fax ([facility] at home) Allergies Active Allergy Reactions Criticality Noted Date Comments Benzonatate 12/08/2016 choking Keyanna Pedraza Other (Please comment) High 04/10/20 09 Choking documented as of this encounter (statuses as of 04/01/2024) Medications ONETOUCH LANCETS MISCIndications:DM type 2, not at goal (HCC) 3 Box Dosing Unit 1 04/17/20 15 Active Nitroglycerin 0.4 MG Sublingual Tablet Sublingual Place under the tongue every 5 minutes as needed. Up to 3 in 15 minutes. 25 Tab 11 04/17/20 15 Active Magnesium Oxide 400 MG CapsuleIndications:H eart failure, systolic, due to CAD ([facility]),Automatic implantable cardioverter-defibri llator in situ,Chronic ischemic heart disease,Ischemic cardiomyopathy Take 1 Cap by mouth daily. 30 Cap 5 03/16/20 17 Active Glucose Blood (Mirror42TOUCH VERIO) STRP USE TO TEST BLOOD GLUCOSE [...] Active WalkerIndications:Os teomyelitis of foot, left, acute ([facility]),Diabetic polyneuropathy associated with diabetes mellitus due to underlying condition ([facility]),Ulcer of right foot with necrosis of muscle ([facility]),Right knee pain, unspecified chronicity,Heart failure, systolic, due to CAD ([facility]) Bariatric heavy duty walker- 2 wheels- please document patient's weight at 308 1 Each 02/08/20 Active DIURETIC TITRATION PLANIndications:Hear t failure, systolic, due to CAD ([facility]) If no improvement on day 3, [...] below 100,DM type 2, not at goal ([facility]),Diabetic polyneuropathy associated with type 1 diabetes [...] 24 Active Vitamin D (Ergocalciferol) 1.25 MG (59830 UT) Oral Capsule (Drisdol) TAKE ONE CAPSULE [...] day for 14 days. 60 g 1 12:52 PM EST 03/28/20 24 Active Betamethasone Dipropionate 0.05 % External Cream (Diprosone) Apply topically to affected area twice a day. 45 g 3 4 12:52 PM EST 03/29/20 24 Active documented as of this encounter (statuses as of 04/01/2024) Active Problems Problem Noted Date Diagnosed Date [...] (07/04/2019): Added automatically from request for surgery [id number] 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 [...] as of this encounter (statuses as of 04/01/2024) Resolved Problems Problem Noted Date Diagnosed Date [...] Silent myocardial infarction 03/23/2013 11/08/2018 Accelerate Clinical Trial*[id number] 01/24/2013 05/16/2015 Overview (01/24/2013): ACCELERATE STUDY. Project # [id number], PLASTICS HEAT WELDER: Ben Hoover MD. CRC: DEBORAH Back. SUMMARY: To test the hypothesis that Evacetrapib 130 mg, in comparison to placebo, reduces the risk of major adverse coronary events in high-risk vascular disease patients. CONTACTS: During normal business hours, contact study staff at ; after hours Nail Polish Brush Machine Feeder via the [facility] hospital mult au matic operator [phone]. 24-hour Global Study Helpline: [phone]. Lipid levels should not be ordered/obtained while this subject is in the Accelerate study. Lipids are being managed in a blinded fashion. If lipid levels are inadvertently obtained, it is important that test results are NOT provided to the patient, study doctor, support coordinator, or other study team members. Restricted meds while in the study: 1) niacin > 250 mg, 2) gemfibrozil with a potent [id number]. NINA on CPAP 06/28/2012 01/31/2020 Overview (06/28/2012): [...] as of this encounter (statuses as of 04/01/2024) Immunizations Name Administration Dates Next Due COVID-19 [...] Telephone Encounter - Cassi Toro LPN - 04/01/2024 12:43 PM EST Received Fax for BFPROVIDERS: Dr. Kwame Parks [facility] received from [facility] home [facility] and FAXED documented in this encounter Plan of Treatment Upcoming Encounters Date Type Department Care Team (Late st Contact Info) Description 04/13/2024 6:00 AM EST Anticoagulation Centralized Clinical Pharmacy Services, Renee Wise [address] [place] [address] [place] [address] [place] [address] 04/13/2024 7:10 AM EST Laboratory Lab Mobile Phlebotomy [facility] [address] [place] [address] [facility], [facility]ml Mobile Home Draw [address] [place] [address] 05/11/2024 2:00 PM EST Office Visit Infectious Disease [facility] [place] [address] [place] [address] Sherry Roy MD [address] [place] [address] 05/26/2024 10:30 AM EST Telemedicine [facility] [place] [address] [place] [address] Carolee Manriquez PA-C [address] [place] [address] Edna Baum, Community Health Survey Interviewer [address] [place] [address] 07/11/2024 9:50 AM EDT Office Visit [facility] [address] [place] [phone] Sherry Maya DO [address] [place] [address] Scheduled Procedures Name Priority Associated Diagnoses Date/Ti [...] Additional history exists CKD PHOS USE SMARTSET 89147 06/03/2024 02/0 10/2023, 11/06/2021, 09/12/2020, Additional history exists HbA1c 06/04/2024 12/03/2023, 04/1 , 03/27/2023, Additional history exists Albumin/Creatinine Ratio 06/19/2024 024, 08/15/2022, 11/06/2021, Additional history exists Depression Monitoring 09/07/2024 09/08/2023 GFR 09/28/2024 03/30/2024, 1205/2023, 03/21/2024, Additional history exists TSH 02/25/2025 02/26/2024, 100 06/2023, 09/24/2023, Additional history exists CKD HGB USE SMARTSET 16937 03/30/202503/30, 03/28/2024, 03/21/2024, Additional history exists DTap/Tdap [...] the patient have Health Care Power of Keymodule Assembly Machine Tender? Yes, not currently available * Full Code [...] Relationshi p Communication Omar Mckeont Adult Child [facility] re Agent [facility] Agent Care Teams Radial Drill Operator For Plastic Relationship Specialty Start Date End Date Sherry Maya DO [address] [place] [address] PCP - General Family Medicine 11/12/11 documented as of this encounter
--- OUTSIDE RECORDS SUMMARY | 2024-05-24 05:18 | External Medical Summary | Summary of Care ---
Author Name Unknown Organization [facility] Address [address] [facility] [place] [address] Phone [phone] Care Team Providers Care Life Skills Consultant Name Role Phone Sherry Maya DO Primary Care Provider + [phone] Reason for Visit * Reason Comments eRx-Medication Refill Encounter Details Date Type Department Care Team (Late st Contact Info) Description 04/01/[address] [address] Shree Camilo MD [address] [place] [address] Diabetic polyneuropathy associated with type 2 diabetes mellitus (HCC); S/P BKA (below knee amputation) unilateral, left (HCC); Leg wound, right, initial encounter Allergies Active Allergy Reactions Criticality Noted Date Comments Benzonatate 12/08/2016 choking Keyanna Pedraza Other (Please comment) High 04/10/20 09 Choking documented as of this encounter (statuses as of 04/03/2024) Medications ONETOUCH LANCETS MISCIndications:DM type 2, not at goal (HCC) 3 Box Dosing Unit 1 04/17/20 15 Active Nitroglycerin 0.4 MG Sublingual Tablet Sublingual Place under the tongue every 5 minutes as needed. Up to 3 in 15 minutes. 25 Tab 11 04/17/20 15 Active Magnesium Oxide 400 MG CapsuleIndications:H eart failure, systolic, due to CAD ([facility]),Automatic implantable cardioverter-defibri llator in situ,Chronic ischemic heart disease,Ischemic cardiomyopathy Take 1 Cap by mouth daily. 30 Cap 5 03/16/20 17 Active Glucose Blood (USMD VERIO) STRP USE TO TEST BLOOD GLUCOSE 8 TIMES A DAY 800 Strip 3 03/18/20 19 Active Insulin Aspart 100 UNIT/ML Injection Solution Inject under the skin. FOR USE IN PUMP Active S-cubism Verio Flex System w/Device Kit Use as directed. 01/26 11/13 20 Active Diclofenac Sodium 1 % External Gel [...] WalkerIndications:Os teomyelitis of foot, left, acute ([facility]),Diabetic polyneuropathy associated with diabetes mellitus due to underlying condition ([facility]),Ulcer of right foot with necrosis of muscle ([facility]),Right knee pain, unspecified chronicity,Heart failure, systolic, due to CAD ([facility]) Bariatric heavy duty walker- 2 wheels- please document patient's weight at 308 1 Each 02/08/20 21 Active DIURETIC TITRATION PLANIndications:Hear t failure, systolic, due to CAD ([facility]) If no improvement on day 3, contact heart failure managing provider. 1 Each 03/11/20 21 Active Loratadine 10 MG Oral Tablet (Claritin) Take 1 Tablet by mouth daily. 100 Tablet 3 04/12/20 21 Active Metoprolol Succinate ER 25 MG Oral [...] 24 Active Vitamin D (Ergocalciferol) 1.25 MG (81852 UT) Oral Capsule (Drisdol) TAKE ONE CAPSULE [...] 4 12:52 PM EST 03/29/20 24 Active Levothyroxine Sodium 88 MCG Oral Tablet (Levoxyl)Indications :Hypothyroidism, unspecified type TAKE 1 TABLET BY MOUTH EVERY MORNING at least 30 minutes before breakfast or other meds 100 Tablet 04/03/20 24 Active documented as of this encounter (statuses as of 04/03/2024) Active Problems Problem Noted Date Diagnosed Date [...] (07/04/2019): Added automatically from request for surgery [id number] 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 Project # [id number], CLUTCH INSPECTOR: Ben Hoover MD. CRC: DEBORAH Back. SUMMARY: To test the hypothesis that Evacetrapib 130 mg, in comparison to placebo, reduces the risk of major adverse coronary events in high-risk vascular disease patients. CONTACTS: During normal business hours, contact study staff at ; after hours Kitchen Steward/Stewardess via the [facility] hospital centerless grinder operator [phone]. 24-hour Global Study Helpline: [phone]. Lipid levels should not be ordered/obtained while this subject is in the Accelerate study. Lipids are being managed in a blinded fashion. If lipid levels are inadvertently obtained, it is important that test results are NOT provided to the patient, study doctor, enrollment management coordinator, or other study team members. Restricted meds while in the study: 1) niacin > 250 mg, 2) gemfibrozil with a potent [id number]. NINA on CPAP 06/28/2012 01/31/2020 Overview (06/28/2012): [...] as of this encounter (statuses as of 04/03/2024) Immunizations Name Administration Dates Next Due COVID-19 [...] Author No 01/08/2021 1:48 AM EDT Gaurav eRdd RN * Do you have serious difficulty [...] encounter Miscellaneous Notes * Telephone Encounter - Sameera Power [facility] - 04/03/2024 7:35 PM ESTRefused Prescriptions: Disp Refills Pregabalin 50 MG Oral Capsule (Lyrica) 60 Cap*0 Sig: Take 1 Capsule by mouth in the morning and 1 Capsule at noon and 1 Capsule before bedtime. Refused By: SAMEERA POWER Reason for Refusal: Duplicate Request * Telephone Encounter - Kerline, E-[facility] S[facility] Inbound - 04/03/2024 12:13 PM EST Pending Prescriptions: Disp Refills Pregabalin 50 MG Oral Capsule [Pharmacy Me*60 Cap*0 Sig: Take 1Capsule by mouth in the morning and 1 Capsule at noon and 1 Capsule before bedtime. documented in this encounter Plan of Treatment Upcoming Encounters Date Type Department Care Team (Late st Contact Info) Description 04/13/2024 6:00 AM EST Anticoagulation Centralized Clinical Pharmacy Services, Renee Wise [address] [place] [address] [place] [address] [facility], [address] [place] [address] 04/13/2024 7:10 AM EST Laboratory Lab Mobile Phlebotomy [facility] [place], [place] [address] [facility], Gml Mobile Home Draw [address] [place] [address] [place], [place] [address] 05/11/2024 2:00 PM EST Office Visit Infectious Disease [facility] 200 [place] [address] Sherry Roy MD [address] [place] [address] 05/26/2024 10:30 AM EST [facility]icine [facility] [place] [address] [place] [address] Carolee Manriquez PA-C [address] [place] [address] Edna Baum, Community Health Credit Collections Manager [address] [place] [address] 07/11/2024 9:50 AM EDT Office Visit [facility] [address] [place] [address] Sherry Maya, DO [address] [place] [address] Scheduled Procedures Name Priority Associated Diagnoses Date/Ti [...] Additional history exists CKD PHOS USE SMARTSET 24602 06/03/20240 10/2023, 11/06/2021, 09/12/2020, Additional history exists HbA1c 06/04/2024 12/03/2023, 07/26, 03/27/2023, Additional history exists Albumin/Creatinine Ratio 06/19/20242 024, 08/15/2022, 11/06/2021, Additional history exists Depression Monitoring 09/07/2024 09/08/2023 GFR 09/28/2024 03/30/2024, 1205/2023, 03/21/2024, Additional history exists TSH 02/25/2025 02/26/2024, 100 06/2023, 09/24/2023, Additional history exists CKD HGB USE SMARTSET 24002 03/30/202503/30, 03/28/2024, 03/21/2024, Additional history exists DTap/Tdap [...] the patient have Health Care Power of Multi Operation Forming Machine Setter? Yes, not currently available * Full Code [...] Communication Omar Lyle Adult Child [facility] re Agent Xi Mckeont Adult [facility] Care Agent Care Teams Life Skills Consultant Relationship Specialty Start Date End Date Sherry Maya DO [address] [place], [place] [id number] PCP - General Family Medicine 11/12/11 documented as of this encounter
--- OUTSIDE RECORDS SUMMARY | 2024-05-24 05:19 | External Medical Summary | Summary of Care ---
Author Name Unknown Organization [facility] Address [address] [place] [address] Phone [phone] Care Team Providers Care Box Spring Frame Builder Name Role Phone Francesco Sherry Shaw DO Primary Care Provider [phone] Encounter Details Date Type Department Care Team (Late st Contact Info) Description 03/22/2024 2:30 PM EST Telemedicine [facility], [place] [address] [place] [address] Carolee Manriquez PA-C [address] [place] [address] Edna Baum, Community Health Air Valve Mechanic [address], [place] [id number] DM, UNCONTROLLED, TYPE II*; Heart failure, systolic, due to CAD ([facility]); Stage 3b chronic kidney disease ([facility]); Osteomyelitis of right foot, unspecified type ([facility]) Allergies Active Allergy Reactions Criticality Noted Date Comments Benzonatate 12/08/2016 choking Rosesalroger Pedraza Other (Please comment) High 04/10/20 09 Choking documented as of this encounter (statuses as of 03/25/2024) Medications ONETOUCH LANCETS MISCIndications:DM type 2, not [...] Cap 5 03/16/20 17 Active Glucose Blood (LawbitDocs VERIO) STRP USE TO TEST BLOOD GLUCOSE 8 TIMES A DAY 800 Strip 3 03/18/20 19 Active Insulin Aspart 100 UNIT/ML Injection Solution Inject under the skin. FOR USE IN PUMP Active Stamp.it Verio Flex System w/Device Kit Use as [...] PLANIndications:Hear t failure, systolic, due to CAD (HCC) If [...] mouth daily. With food. 100 Tablet 04/12/20 21 Active Acetaminophen 325 MG Oral [...] 24 Active Vitamin D (Ergocalciferol) 1.25 MG (71324 UT) Oral Capsule (Drisdol) TAKE ONE CAPSULE [...] and 1,000 mg before bedtime. 02/19/20 Active oxyCODONE HCl 10 MG Oral Tablet (Roxicodone)Indicati ons:S/P BKA (below knee amputation) unilateral, left (HCC),Diabetic polyneuropathy associated with type 2 diabetes mellitus (HCC),Leg wound, right, initial encounter Take 1 Tablet by mouth every 6 hours as needed for Pain, Severe. 60 Tablet 03/18/20 24 Active Clotrimazole-Betamet hasone 1-0.05 % External Lotion (Lotrisone) Apply topically to affected area 2 times a day for 28 days. To affected area for 4 weeks, or until healed. 30 mL 4 03/22/20 24 2023 Active documented as of this encounter (statuses as of 03/25/2024) Active Problems Problem Noted Date Diagnosed Date [...] (07/04/2019): Added automatically from request for surgery [id number] 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 [...] as of this encounter (statuses as of 03/25/2024) Resolved Problems Problem Noted Date Diagnosed Date [...] Silent myocardial infarction 03/23/2013 11/08/2018 Accelerate Clinical Trial*[id number] 01/24/2013 05/16/2015 Overview (01/24/2013): ACCELERATE STUDY. Project # [id number], PHOTOENGRAVING PRINTER: Ben Hoover MD. CRC: DEBORAH Back. SUMMARY: To test the hypothesis that Evacetrapib 130 mg, in comparison to placebo, reduces the risk of major adverse coronary events in high-risk vascular disease patients. CONTACTS: During normal business hours, contact study staff at ; after hours Survey Worker via the [facility] hospital plastics seasoner operator [phone]. 24-hour Global Study Helpline: [phone]. Lipid levels should not be ordered/obtained while this subject is in the Accelerate study. Lipids are being managed in a blinded fashion. If lipid levels are inadvertently obtained, it is important that test results are NOT provided to the patient, study doctor, hearing screen coordinator, or other study team members. Restricted meds while in the study: 1) niacin > 250 mg, 2) gemfibrozil with a potent [id number]. NINA on CPAP 06/28/2012 01/31/2020 Overview (06/28/2012): [...] as of this encounter (statuses as of 03/25/2024) Immunizations Name Administration Dates Next Due COVID-19 [...] No 09/08/2023 Does the household have a [place] medical cent[place] source of income? (Household - [...] PM EDT documented as of this encounter Last Filed Vital Signs Vital Sign Reading Time Taken Comments Blood Pressure 104/50 03/22/2024 2:55 PM EST Pulse 89 03/22/2024 2:55 PM EST Temperature 37 C (98.6 F) 03/22/2024 2:55 PM EST Respiratory Rate 20 03/22/2024 2:55 PM EST Oxygen Saturation 96% 03/22/2024 2:55 PM EST Inhaled Oxygen Concentration - - Weight - - Height - - Body Mass Index - - documented in this encounter Functional Status * Are you [...] documented in this encounter Progress Notes * Edna Baum Community Health Air Valve Mechanic - 03/22/2024 3:38 PM EST Telemedicine visit: Yes Patient location: HOME. I was not in a hospital or clinic location. After connecting through televideo, patient was verified with two unique identifiers. Patient (or authorized legal hobbies and crafts sales representative) was then informed that this was a Telemedicine visit and being conducted confidentially over secure lines. Methods to assure confidentiality were taken. Patient acknowledged consent and understanding of privacy and security of the Telemedicine visit. The patient agreed to participate Community Health Air Valve Mechanic (CONNER) documentation: CHW assisted Carolee Olvera PA-C with telehealth visit this date * Carolee Manriquez PA-C - 03/22/2024 2:40 PM EST [facility] Provider Telemedicine Visit Date: 03/22/2024 Time: 2:40 PM Assessment/Plan: 1. DM, UNCONTROLLED, TYPE II Following with Endocrinology Has insulin pump Recent BG in low 100's 2. Heart failure, systolic, due to CAD ([facility]) Minimal LE edema Taking Torsemide 60 mg daily Spironolactone 25 mg daily Metolazone 2.5 mg on MWF Jardiance 10 mg taking 3. Stage 3b chronic kidney disease (HCC) Stable 4. Osteomyelitis of right foot, unspecified type ([facility]) S/p calcanectomy and IV antibiotics Seeing wound care for follow up tomorrow Follow up plan: Patient is struggling at home with non weight bearing on the right leg. He has beenusing his prosthetic on the left leg more for weight bearing. Admits to having a rash to the stump.Will send a Rx for Lotrisone. Advised to reach out if area worsens. He is scheduled to see wound care tomorrow. IV antibiotics will be done tomorrow. He increased his K to 20 meq in morning and 40 inthe evening. Level is at low normal yesterday A total of 45 minutes was spent face to face via video-based telemedicine. Subjective Patient location: HOME. I was not in a hospital or clinic location. After connecting through [employer], patient was verified with two unique identifiers. Patient (or authorized legal hobbies and crafts sales representative) was then informed that this was a Telemedicine visit and being conducted confidentially over secure lines. Methods to assure confidentiality were taken. Patient acknowledged consent and understanding of privacy and security of the Telemedicine visit. The patient agreed to participate. Reason for Visit: Follow-Up Current Concerns: Ben Lyle is a 58 year old male seen today for a [facility] Telemedicine Provider Visit. Date of last known acute care visit: 02/29/24 with PCP Reason for last known acute care visit: Patient was admitted on 01/08/24 to [facility] for infection to RLE. Culture grew Proteus, MRSA and Enterococcus. He was treated with Cefepime, Vancomycin and Flagyl. His insulin pump was not working. He was starting on Lantus 40 units BID with Novolog. Hemoglobin A1c was 7.0. On 01/10he underwent surgical debridement for ulceration of the right heel. The specimen was 10x8x2.5 cm and was reported as fully necrotic. Surgical cultures grew Morganella and Enterococcus. ID recommendedLinezolid and Bactrim until 01/22/24. He is non weight bearing to the right foot and has a AKA on the left side which made transferring difficult which is why he was transferred to a SNF on 01/27/24. At the time of discharge he was taking Lantus 40 units twice daily and Novolog 10 units three times aday with meals with a sliding scale. He was readmitted from 02/08-02/20 to [facility]. Unable to view d/csummary. Patient is scheduled to d/c IV antibiotics on 03/23/24. Today's concerns are: Patient states he is struggling at home with not bearing weight on the right foot. He has been wearing his prosthetic more and has developed an itchy rash to the left stump. No edema to the extremities. Diuretics were unchanged since last admission. He increased his potassium and is taking 20 meq in the morning and 40 meq in the evening. No SOB/RINALDI or increased edema. Appetite is good. He states h is blood sugar has been good. It is currently 140. Insulin pump is working without issues. He admits to constipation. Having BM every 2 days. He is taking Miralax. No changes with urination. He is unsure how the wounds are healing. He has HH coming for wound care and has a wound vac on the right heel. He states his pain is mostly located the anterior lower right leg where he has 2 open wounds. Heis still having weeping. He is scheduled to see wound care tomorrow. ROS: See HPI Objective Physical Exam: BP 104/50 (BP Site: Left Arm, BP Cuff Size: Large) | Pulse 89 | Temp 37 C (98.6 F) (Tympanic) |Resp 20 | SpO2 96% Previous Wts: Wt Readings from Last 5 Encounters: 11/04/23 (!) 177.4 kg (391 lb) 10/07/23 (!) 175.9 kg (387 lb 12.8 oz) 09/24/23 (!) 172.8 kg (381 lb) 06/19/23 (!) 160.1 kg (353 lb) 06/03/23 (!) 168.4 kg (371 lb 3.2 oz) Previous BPs: BP Readings from Last 5 Encounters: 02/29/24 130/70 12/22/23 130/80 11/04/23 140/82 10/28/23 115/80 10/07/23 133/82 Physical Exam Constitutional: General: He is not in acute distress. HENT: Head: Normocephalic and atraumatic. Nose: Nose normal. Mouth/Throat: Pharynx: Oropharynx is clear. Eyes: Extraocular Movements: Extraocular movements intact. Conjunctiva/sclera: Conjunctivae normal. Cardiovascular: Rate and Rhythm: Normal rate and regular rhythm. Pulmonary: Effort: Pulmonary effort is normal. No respiratory distress. Breath sounds: Normal breath sounds. Musculoskeletal: Comments: RLE: leg is wrapped. Viewed picuture taken earlier, anterior right tibial region 2 large open wound with centralized granulation tissue. No surrounding erythema. Unable to view the foot. LLE: erythematous papular rash noted to the anterior stump with scaling present. No cellulitis noted Neurological: General: No focal deficit present. Mental Status: He is alert and oriented to person, place, and time. Medication Review: Current Outpatient Medications Medication Sig Dispense Refill ONETOUCH LANCETS MISC 3 Box Dosing Unit 1 Nitroglycerin 0.4 MG Sublingual Tablet Sublingual Place under the tongue every 5 minutes as needed.Up to 3 in 15 minutes. (Patient not taking: Reported on 03/03/2024) 25 Tab 11 Magnesium Oxide 400 MG Capsule Take 1 Cap by mouth daily. 30 Cap 5 Glucose Blood (ONETOUCH VERIO) [...] 1 Tablet before bedtime. 60 Tablet 11 Levothyroxine Sodium 88 MCG Oral Tablet (Levoxyl) TAKE ONE TABLET BY MOUTH IN THE MORNING AT LEAST 30 MINS PRIOR TO BREAKFAST OR OTHER MEDS 100 Tablet 5 Ammonium Lactate 12 % External Lotion (Lac-Hydrin) Apply topically to affected area as needed for Dry Skin. Apply to rash on legs 400 g 1 Omeprazole 20 MG Oral Capsule Delayed Release (PriLOSEC) Take 1 Capsule by mouth in the morning. 100 Capsule 1 Triamcinolone Acetonide 0.1 % External Lotion (Aristocort) Apply topically to affected area 2 timesa day. To dry skin on the lower legs and stump. Avoid on open wounds 60 mL 5 Atorvastatin Calcium 80 MG Oral Tablet (Lipitor) [...] Cramping. for abdominal pain 40 Tablet 2 Pregabalin 50 MG Oral Capsule (Lyrica) Take 1 Capsule by mouth in the morning and 1 Capsule at noonand 1 Capsule before bedtime. 60 Capsule 0 Vitamin D (Ergocalciferol) 1.25 MG (21172 UT) Oral Capsule (Drisdol) TAKE ONE CAPSULE BY MOUTH EVERY WEEK 12 Capsule 0 Potassium Chloride Tiffanie ER 20 MEQ Oral Tablet Extended Release Take 1 Tablet by mouth in the morning and 1 Tablet before bedtime. 60 Tablet 2 DAPTOmycin 500 MG Intravenous Solution Reconstituted (Cubicin) Administer 500 mg intravenously in the morning. Meropenem 1 GM Intravenous Solution Reconstituted (Merrem) Administer 1,000 mg intravenously in themorning and 1,000 mg at noon and 1,000 mg before bedtime. oxyCODONE HCl 10 MG Oral Tablet (Roxicodone) Take 1 Tablet by mouth every 6 hours as needed for Pain, Severe. 60 Tablet 0 No current facility-administered medications for this visit. Mobility Evaluation: MACH10 Assessment: Assistive Devices Used in the Home: Walker (standard or rollator) Manual Wheelchair Recent Falls: Falls in the last 6 months: No Depression Screening: PHQ2 Depression Screening PHQ-2 & DALE-2 assessment Social Determinants of Health Screening: [facility] Screening Tool Social Needs Financial Resource Strain: Low Risk [...] Stability Do you currently live in a skilled nursing or have no steady place to sleep [...] - for ages0-17 years): Not on file Personal Safety: Low Risk (09/08/2023) Personal Safety Do you feel unsafe or have concerns for your safety? (Adult - for ages 18 years and over): No Do you have concerns for your family's safety? (Household - for ages 0-17 years): Not on file Childcare: Low Risk (09/08/2023) Childcare Do you feel overwhelmed with taking care of a child, family member or friend? (Adult - for ages 18 years and over): No Does your family need help finding childcare? (Household - for ages 0-17 years): Not on file Clothing: Low Risk (09/08/2023) Clothing Have you been unable to get clothing when it was really needed? (Adult - for ages 18 years and over): No Is your family able to get clothes or diapers when needed? (Household - for ages 0-17 years): Not on file Utilities: Not At Risk (09/08/2023) Utilities Do you have trouble paying your heating, water, or electric bill? (Adult - for ages 18 years and over): No Is your family able to pay the heat, water, or electric bill? (Household - for ages 0-17 years): Not on file Does your family have access to good internet? (Household - for ages 0-17 years): Not on file Employment Status: Low Risk (09/08/2023) Employment Status Are you unemployed or without regular income? (Adult - for ages 18 years and over): No Does the household have a regular source of income? (Household - for ages 0-17 years): Not on file Carolee Mckeon PA-C 2:40 PM *Communication sent to PCP (via [facility] if [facility]), Population Health Care Team members, relevant Specialty Care Physicians* documented in this encounter Plan of Treatment Upcoming Encounters Date Type Department Care Team (Late st Contact Info) Description 03/29/2024 1:00 PM EST Office Visit Nephrology, [facility]ina Villarreal [address] [facility] [place] [address] Boogie Menezes MD [address] [facility] [place] [address] 03/30/2024 7:10 AM EST Laboratory Lab Mobile Phlebotomy [facility] [address] [place] [address] [facility], [facility] Mobile Home Draw [address] [place] [address] 03/31/2024 6:00 AM EST Anticoagulation Centralized Clinical Pharmacy Services, [address] [place] [address] [place] [address] 05/11/2024 2:00 PM EST Office Visit Infectious Disease [employer] [address] [facility] [place] [address] Sherry Roy MD [address] [place] [address] 05/26/2024 10:30 AM EST Telemedicine [facility] [place], [place] [address] [place] [address] Carolee Manriquez PA-C [address] [place] [address] Edna Baum, Community Health Air Valve Mechanic [address] [place] [address] 07/11/2024 9:50 AM EDT Office Visit [facility] [address] [address] Sherry Maya, DO [address] [place] [address] Scheduled Procedures Name Priority Associated Diagnoses Date/Ti [...] Additional history exists CKD PHOS USE SMARTSET 91033 06/03/2024 020 10/2023, 11/06/2021, 09/12/2020, Additional history exists HbA1c 06/04/2024 12/03/2023, 07/26, 03/27/2023, Additional history exists Albumin/Creatinine Ratio 06/19/202406/19/2 024, 08/15/2022, 11/06/2021, Additional history exists Depression Monitoring 09/07/2024 09/08/2023 GFR 09/18/2024 03/21/2024, 02/25, 03/07/2024, Additional history exists TSH 02/25/2025 02/26/2024, 06/2023, 09/24/2023, Additional history exists CKD HGB USE SMARTSET 86558 03/21/202503/21, 03/14/2024, 03/07/2024, Additional history exists DTap/Tdap Vaccines (3 - [...] uncontrolled Heart failure, systolic, due to CAD (HCC) Unspecified systolic heart failure Stage 3b chronic kidney disease (HCC) Osteomyelitis of right foot, unspecified type (HCC) documented in this encounter Advance Directives [...] the patient have Health Care Power of Organic Extractions Technician? Yes, not currently available * Full Code [...] Communication Omar Mckeont Adult Child [facility] re Agent [place] Adult [facility] Care Agent Care Teams Box Spring Frame Builder Relationship Specialty Start Date End Date Sherry Maya DO [address], [place] [address] PCP - General Family Medicine 11/12/11 documented as of this encounter"
--- OUTSIDE RECORDS SUMMARY | 2024-05-24 05:19 | External Medical Summary | Summary of Care ---
Author Name Unknown Organization [facility] Address [address] [facility] [place] [address] Phone [phone] Care Team Providers Care Senior Loss Control Specialist Name Role Phone Sherry Maya DO Primary Care Provider [phone] Reason for Visit * Reason Comments Dosage Adjustment Via Phone (anticoag Cl inic) Encounter Details Date Type Department Care Team (Late st Contact Info) Description 03/25/2024 6:00 AM EST Anticoagulation Centralized Clinical Pharmacy Services, Renee Wise [address] [place] [address] [place] [address] [facility], [address] [place] [address] DM type 2, goal: symptom mgmt ([facility])* Allergies Active Allergy Reactions Criticality Noted Date [...] Cap 5 03/16/20 17 Active Glucose Blood (GreenLancerTOUCH VERIO) STRP USE TO TEST BLOOD GLUCOSE [...] 24 Active Vitamin D (Ergocalciferol) 1.25 MG (33318 UT) Oral Capsule (Drisdol) TAKE ONE CAPSULE [...] (07/04/2019): Added automatically from request for surgery [id number] 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 Project # [id number], IT SOFTWARE DEVELOPER: Ben Hoover MD. CRC: DEBORAH Back. SUMMARY: To test the hypothesis that Evacetrapib 130 mg, in comparison to placebo, reduces the risk of major adverse coronary events in high-risk vascular disease patients. CONTACTS: During normal business hours, contact study staff at ; after hours Genetic Scientist via the [facility] hospital naval aircrewman operator [phone]. 24-hour Global Study Helpline: [phone]. Lipid levels should not be ordered/obtained while this subject is in the Accelerate study. Lipids are being managed in a blinded fashion. If lipid levels are inadvertently obtained, it is important that test results are NOT provided to the patient, study doctor, design coordinator, or other study team members. Restricted meds while in the study: 1) niacin > 250 mg, 2) gemfibrozil with a potent [id number]. NINA on CPAP 06/28/2012 01/31/2020 Overview (06/28/2012): [...] No 09/08/2023 Does the household have a [facility] source [facility]? (Household [...] documented in this encounter Progress Notes * Katharina Lorenzo CPhT - 03/25/2024 8:50 AM EST Contacts Contact Date/Time Type Contact Phone/Fax 03/25/2024 08:48 AM EST Phone (Outgoing) Ben Lyle (Self) [phone] (M) Spoke to Patient Subjective Patient Findings Negatives: Signs/symptoms of thrombosis, [...] date communicated as noted by Pharmacist: Yes KATHARINA LORENZO CPhT 03/25/2024, 8:50 AM * Jaimee Gandhi [facility] - 03/25/2024 8:21 AM EST Coumadin Clinic (region specific) Objective Current Warfarin Dose As of 03/25/2024 Warfarin maintenance plan: 2 mg (2 mg x 1) every Mon, Sarah, Sat; 4 mg (2 mg x 2) all other days INR Result As of 03/25/2024 INR goal: 2.0-3.0 INR used for dosin.5 (03/23/2024) Assessment & Plan Warfarin Plan As of 03/25/2024 Full warfarin instructions: 2 mg every Mon, Sarah, Sat; 4 mg all other days No change documented: Jaimee Gandhi [facility] Next INR check: 03/30/2024 Repeat PT/INR in 1 week(s) Weekly dose: not changed Additional Dosing Information: Description GML MTuTh- COSMO (patient has 5mg and 1mg tabs) Tech to contact patient with dose instructions as noted. Jaimee Gandhi RPh 03/25/2024, 8:21 AM documented in this encounter Plan of Treatment Upcoming Encounters Date Type Department Care Team (Late st Contact Info) Description 03/29/2024 1:00 PM EST Office Visit Nephrology, [facility] [address] [facility] [place] [address] Boogie Menezes MD [address] [facility] [place] [address] 03/31/2024 6:00 AM EST Anticoagulation Centralized Clinical Pharmacy Services, [address] [place] [address] [facility] [place] [address] 05/11/2024 2:00 PM EST Office Visit Infectious Disease [facility] [place] [address] [facility] [place] [address] Sherry Roy MD [address] [place] [address] 05/26/2024 10:30 AM EST Telemedicine [facility], [place] [address] [place] [address] Carolee Manriquez PA-C [address] [place] [address] Edna Baum, Community Health Fixed Capital Clerk [address] [place] [address] 07/11/2024 9:50 AM EDT Office Visit [facility], [place] [address] [place] [address] Sherry Maya DO [address] [place] [address] Scheduled Procedures Name Priority Associated Diagnoses Date/Ti [...] Additional history exists CKD PHOS USE SMARTSET 39233 06/03/202410/2023, 11/06/2021, 09/12/2020, Additional history exists HbA1c 06/04/2024 12/03/2023, 07/26, 03/27/2023, Additional history exists Albumin/Creatinine Ratio 06/19/202406/19/2 024, 08/15/2022, 11/06/2021, Additional history exists Depression Monitoring 09/07/2024 09/08/2023 GFR 09/18/2024 03/21/2024, 02/25, 03/07/2024, Additional history exists TSH 02/25/2025 02/26/2024, 06/2023, 09/24/2023, Additional history exists CKD HGB USE SMARTSET 05983 03/21/202503/21, 03/14/2024, 03/07/2024, Additional history exists DTap/Tdap [...] as of this encounter Visit Diagnoses Diagnosis DM type 2, goal: symptom mgmt (HCC)- Primary Type II or unspecified type diabetes mellitus without mention of complication, not stated as uncontrolled documented in this encounter Advance Directives * [...] the patient have Health Care Power of Junior High Math Teacher? Yes, not currently available * Full Code [...] Agents on File Name Relationship Healthcare Agent [facility] p Communication Omar Mckeont Adult Child [facility] re Agent [facility] Care Agent Care Teams Senior Loss Control Specialist Relationship Specialty Start Date End Date Sherry Maya DO [address] [place] [address] PCP - General Family Medicine 11/12/11 documented as of this encounter
--- OUTSIDE RECORDS SUMMARY | 2024-05-24 05:19 | External Medical Summary ---
Author Name Unknown Address Unknown Organization K01:[facility] [place] [address] [place] [address] Laboratory Report Ordering Provider Test Date Status DAVIDCHRISTAL 03/30/2024 07:23:00 Final Observation Date Value Abnormality Reference (Units ) Status BUN 03/30/2024 07:23:00 23 Above high normal 6-20 (mg/dL) Final Creatinine 03/30/2024 07:23:00 1.1 0.6-1.2 (mg/dL) Final Glomerular filtration rate/1.73 sq M.predicted [Volume Rate/Area] in Serum, Plasma or Blood by Creatinine-based formula (CKD-EPI) 03/30/2024 07:23:00 74 >=60 (mL/min) Final eGFR is calculated based on the CKD-EPI 2020 equation. Sodium 03/30/2024 07:23:00 138 135-146 (m mol/L) Final Potassium 03/30/2024 07:23:00 4.6 3.5-5.1 (m mol/L) Final Cl 03/30/2024 07:23:00 99 98-107 (mm ol/L) Final CO2 03/30/2024 07:23:00 28 22-32 (mmo l/L) Final Anion gap 03/30/2024 07:23:00 11 7-15 (mmol /L) Final Glucose 03/30/2024 07:23:00 176 Above high normal 70 -120 (mg/dL) Final Albumin 03/30/2024 07:23:00 2.7 Below low normal 3.8 -5.0 (g/dL) Final AST (Aspartate aminotransferase) 03/30/2024 07:23:00 30 10-50 (U/L) Fin al Alk Phos 03/30/2024 07:23:00 152 Above high normal 35 -130 (U/L) Final Bilirubin, Total 03/30/2024 07:23:00 0.5 <=1 .2 (mg/dL) Final Calcium 03/30/2024 07:23:00 8.5 8.4-10.2 ( mg/dL) Final Protein 03/30/2024 07:23:00 7.1 6.0-8.3 (g /dL) Final ALT (Alanine aminotransferase) 03/30/2024 07:23:00 15 10-50 (U/L) Murali anton Performing Location [facility] [place] [facility] [address] [facility] [address]
--- OUTSIDE RECORDS SUMMARY | 2024-05-24 05:19 | External Medical Summary ---
Author Name Unknown Address Unknown Organization K01:[facility] [place] [address] [place] [address] Laboratory Report Ordering Provider Test Date Status ALIE ROPER 03/30/2024 07:23:00 Final Standing order for pt/inr. < br/>Please draw pt/inr every 1 to 4 weeks as requested
Results to [facility]

Warfarin Therapy
INR: 2.0-3.0 conventional anticoagulation
INR: 2.5-3.5 high intensity anticoagulation Observation Date Value Abnormality Reference (Units ) Status PT 03/30/2024 07:23:00 50.5 Above high normal 11.6-15.2 (seconds) Final INR 03/30/2024 07:23:00 5.4 Above upper panic limits 0.8-1.2 Final Performing Location [facility] [place] [address] [place] [address]
--- OUTSIDE RECORDS SUMMARY | 2024-05-24 05:19 | External Medical Summary | Summary of Care ---
Author Name Unknown Organization [facility] Address [address] [facility] [place] [address] Phone [phone] Care Team Providers Care Vertical Borer Name Role Phone Sherry Maya DO Primary Care Provider + [phone] Encounter Details Date Type Department Care Team (Late st Contact Info) Description 03/30/2024 [facility] [address] [facility] [place] [address] Sherry Maya DO [address] [facility] [place] [address] Allergies Active Allergy Reactions Criticality Noted Date Comments Benzonatate 12/08/2016 choking Keyanna Pedraza Other (Please comment) High 04/10/20 09 Choking documented as of this encounter (statuses as of 03/30/2024) Medications ONETOUCH LANCETS MISCIndications:DM type 2, not [...] 30 Cap 5 03/16/20 Active Glucose Blood ([employer]TOUCH VERIO) STRP USE TO TEST BLOOD GLUCOSE [...] mellitus due to underlying condition ([facility]),Ulcer of right foot with necrosis of muscle ([facility]),Right knee pain, unspecified chronicity,Heart failure, systolic, due to CAD ([facility]) Bariatric heavy duty walker- 2 wheels- please document patient's weight at 308 1 Each 02/08/20 Active DIURETIC TITRATION PLANIndications:Hear t failure, systolic, due to CAD ([facility]) If no improvement on day 3, contact [...] 100,DM type 2, not at goal ([facility]),Diabetic polyneuropathy associated with type 1 diabetes mellitus [...] associated with type 2 diabetes mellitus ([facility]),S/P BKA (below knee amputation) unilateral, left ([facility]),Leg wound, right, initial encounter Take 1 Capsule by mouth in the morning and 1 Capsule at noon and 1 Capsule before bedtime. 60 Capsule 12/31/19 24 Active Vitamin D (Ergocalciferol) 1.25 MG (10419 UT) Oral Capsule (Drisdol) TAKE ONE CAPSULE [...] ons:S/P BKA (below knee amputation) unilateral, left ([facility]),Diabetic polyneuropathy associated with type 2 diabetes mellitus ([facility]),Leg wound, right, initial encounter Take 1 Tablet [...] day for 14 days. 60 g 1 03/28/20 24 Active Betamethasone Dipropionate 0.05 % External Cream (Diprosone) Apply topically to affected area twice a day. 45 g 3 03/29/20 24 Active documented as of this encounter (statuses as of 03/30/2024) Active Problems Problem Noted Date Diagnosed Date [...] (07/04/2019): Added automatically from request for surgery [id number] 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 [...] as of this encounter (statuses as of 03/30/2024) Resolved Problems Problem Noted Date Diagnosed Date [...] Silent myocardial infarction 03/23/2013 11/08/2018 Accelerate Clinical Trial*[id number] 01/24/2013 05/16/2015 Overview (01/24/2013): ACCELERATE STUDY. Project # [id number], STAVE CUTTING SUPERVISOR: Ben Hoover MD. CRC: DEBORAH Back. SUMMARY: To test the hypothesis that Evacetrapib 130 mg, in comparison to placebo, reduces the risk of major adverse coronary events in high-risk vascular disease patients. CONTACTS: During normal business hours, contact study staff at ; after hours Watch Assembly Instructor via the [facility] hospital oil operator [phone]. 24-hour Global Study Helpline: [phone]. Lipid levels should not be ordered/obtained while this subject is in the Accelerate study. Lipids are being managed in a blinded fashion. If lipid levels are inadvertently obtained, it is important that test results are NOT provided to the patient, study doctor, group reservations coordinator, or other study team members. Restricted meds while in the study: 1) niacin > 250 mg, 2) gemfibrozil with a potent [id number]. NINA on CPAP 06/28/2012 01/31/2020 Overview (06/28/2012): [...] as of this encounter (statuses as of 03/30/2024) Immunizations Name Administration Dates Next Due COVID-19 [...] No 09/08/2023 Does the household have a [facility] source of income? (Household - for [...] AM EST Anticoagulation [facility] Services, [address] [place] [address] [place] [address] 05/11/2024 2:00 PM EST Office Visit Infectious Disease [facility] [address] [facility] [address] Sherry Roy MD [address] [place] [address] 05/26/2024 10:30 AM EST Telemedicine [facility] [place] [address] [place] [address] Carolee Manriquez PA-C [address] [place] [address] Edna Baum, Community Health Reduction Plant Supervisor [address] [place] [address] 07/11/2024 9:50 AM EDT Office Visit [address] [place] [phone] Sherry Maya, [address] [place] [address] Scheduled Procedures Name Priority Associated Diagnoses Date/Ti [...] Additional history exists CKD PHOS USE SMARTSET 51275 06/03/2024 0210/2023, 11/06/2021, 09/12/2020, Additional history exists HbA1c 06/04/2024 12/03/2023, 07/26, 03/27/2023, Additional history exists Albumin/Creatinine Ratio 06/19/2024 024, 08/15/2022, 11/06/2021, Additional history exists Depression Monitoring 09/07/2024 09/08/2023 GFR 09/18/2024 03/28/2024, 02/26, 03/14/2024, Additional history exists TSH 02/25/2025 02/26/2024, 06/2023, 09/24/2023, Additional history exists CKD HGB USE SMARTSET 83913 03/21/202503/28, 03/21/2024, 03/14/2024, Additional history exists DTap/Tdap Vaccines (3 - [...] Priority Date/Time Associated Diagnosis Comments CHEMISTRY-OUTSIDE Routine 03/28/2024 documented in this encounter Results * (ABNORMAL) CHEMISTRY-OUTSIDE (03/28/2024) Not all results display below - see scan for full detail OUTSIDE LAB (SEE SCANNED REPORT) Comment:SCAN INCL: CBC,CMP, CRP, CK CREATININE 1.26 0.70 - 1.30 MG/DL OUTSIDE LAB (SEE SCANNED REPORT) EGFR 65 OUTSIDE LA B (SEE SCANNED REPORT) POTASSIUM 3.6 3.5 - 5.1 MMOL/L OUTSIDE LAB (SEE SCANNED REPORT) GLUCOSE 152(A) 70 - 110 MG/DL OUTSIDE LAB (SEE [...] LAB OUTSIDE LAB (SEE SCANNED REPORT) HEMOGLOBIN, [id number] LAB OUTSIDE LAB (SEE SCANNED REPORT) PHOSPHORUS-OUTSID E LAB OUTSIDE LAB (SEE SCANNED REPORT) PTH-OUTSIDE LAB OUTS ADY LAB (SEE SCANNED REPORT) MICROALBUMIN RATIO-OUTSIDE LAB OUTSIDE LA B (SEE SCANNED REPORT) PROTEIN, UA-OUTSIDE LAB OUTSIDE LAB (SEE SCANNED REPORT) HGB 11.3(A) 13.5 - 18.0 GM/DL OUTSIDE LAB (SEE SCANNED REPORT) 03/28/2024 us Anthony Figueroa MD LABORATORY Final Res [...] the patient have Health Care Power of Tin Roofer? Yes, not currently available * Full Code [...] Agents on File Name Relationship Healthcare Agent [facility] p Communication Omar Lyle Adult Child [facility] re Agent Xi Valdo Adult Child Health Care Agent Care Teams Vertical Borer Relationship Specialty Start Date End Date Sherry Maya DO [address] [place] [address] PCP - General Family Medicine 11/12/11 documented as of this encounter
--- OUTSIDE RECORDS SUMMARY | 2024-05-24 05:19 | External Medical Summary | Summary of Care ---
Author Name Unknown Organization [facility] Address [address] [place] [address] Phone [phone] Care Team Providers Care Supervisor Network Control Operators Name Role Phone Sherry Maya DO Primary Care Provider + [phone] Encounter Details Date Type Department Care Team (Late st Contact Info) Description 03/28/2024 Orders Only [facility] [place] [address] [place] [address] Carolee Manriquez PA-C [address] [place] [address] Allergies Active Allergy Reactions Criticality Noted Date Comments Benzonatate 12/08/2016 choking Keyanna Pedraza Other (Please comment) High 04/10/20 09 Choking documented as of this encounter (statuses as of 03/28/2024) Medications ONETOUCH LANCETS MISCIndications:DM type 2, not [...] mellitus due to underlying condition ([facility]),Ulcer of right foot with necrosis of muscle ([facility]),Right knee pain, unspecified chronicity,Heart failure, systolic, due to CAD ([facility]) Bariatric heavy duty walker- 2 wheels- please document patient's weight at 308 1 Each Active DIURETIC TITRATION PLANIndications:Hear t failure, systolic, due to CAD ([facility]) If no improvement on day 3, contact [...] below 100,DM type 2, not at goal ([facility]),Diabetic polyneuropathy associated with type 1 diabetes mellitus [...] 03/03/2024 Mupirocin 2 % External Ointment (Bactroban) 022 Active Ferrous Sulfate 325 (65 Fe) MG Oral Tablet (Feosol)Indications: Other iron deficiency anemia Take 1 Tablet by mouth in the morning and 1 Tablet before bedtime. 60 Tablet 023 Active Levothyroxine Sodium 88 MCG Oral Tablet (Levoxyl)Indications :Hypothyroidism, unspecified type TAKE ONE TABLET BY MOUTH IN THE MORNING AT LEAST 30 MINS PRIOR TO BREAKFAST OR OTHER MEDS 100 Tablet 023 Active Ammonium Lactate 12 % [...] abdominal pain 40 Tablet 2 024 Active Pregabalin 50 MG Oral Capsule (Lyrica)Indications: Diabetic polyneuropathy associated with type 2 diabetes mellitus ([facility]),S/P BKA (below knee amputation) unilateral, left ([facility]),Leg wound, right, initial encounter Take 1 Capsule by mouth in the morning and 1 Capsule at noon and 1 Capsule before bedtime. 60 Capsule Active Vitamin D (Ergocalciferol) 1.25 MG (74367 UT) Oral Capsule (Drisdol) TAKE ONE CAPSULE BY MOUTH EVERY WEEK 12 Capsule Active Potassium Chloride Tiffanie ER 20 MEQ [...] ons:S/P BKA (below knee amputation) unilateral, left ([facility]),Diabetic polyneuropathy associated with type 2 diabetes mellitus ([facility]),Leg wound, right, initial encounter Take 1 Tablet by mouth every 6 hours as needed for Pain, Severe. 60 Tablet Active Clotrimazole 1 % External Cream (Lotrimin) Apply topically to affected area 2 times a day for 14 days. Apply to stump 60 g 1 024 2023 Active Betamethasone Dipropionate 0.05 % External Cream (Diprosone) Apply topically to affected area 2 times a day. To affected area. 45 g 3 Active Clotrimazole-Betamet hasone 1-0.05 % External Lotion (Lotrisone) Apply topically to affected area 2 times a day for 28 days. To affected area for 4 weeks, or until healed. 30 mL 4 024 2023 Disconti bailee(For mulary/C ost) documented as of this encounter (statuses as of 03/28/2024) Active Problems Problem Noted Date Diagnosed Date [...] (07/04/2019): Added automatically from request for surgery [id number] 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 [...] as of this encounter (statuses as of 03/28/2024) Resolved Problems Problem Noted Date Diagnosed Date [...] Silent myocardial infarction 03/23/2013 11/08/2018 Accelerate Clinical Trial*[id number] 01/24/2013 05/16/2015 Overview (01/24/2013): ACCELERATE STUDY. Project # [id number], SENIOR SOFTWARE ARCHITECT: Ben Hoover MD. CRC: DEBORAH Back. SUMMARY: To test the hypothesis that Evacetrapib 130 mg, in comparison to placebo, reduces the risk of major adverse coronary events in high-risk vascular disease patients. CONTACTS: During normal business hours, contact study staff at ; after hours Brown Stock Washer via the [facility] hospital sheeter operator [phone]. 24-hour Global Study Helpline: [phone]. Lipid levels should not be ordered/obtained while this subject is in the Accelerate study. Lipids are being managed in a blinded fashion. If lipid levels are inadvertently obtained, it is important that test results are NOT provided to the patient, study doctor, conference coordinator, or other study team members. Restricted meds while in the study: 1) niacin > 250 mg, 2) gemfibrozil with a potent [id number]. NINA on CPAP 06/28/2012 01/31/2020 Overview (06/28/2012): [...] as of this encounter (statuses as of 03/28/2024) Immunizations Name Administration Dates Next Due COVID-19 [...] No 09/08/2023 Does the household have a [facility] source [facility] income? (Household - for [...] of Assessment Author No 01/08/2021 1:48 AM EDGaurav Jones RN * Because of a physical, mental, or emotional condition, do you have difficulty doing errands alone such as visiting a doctors office or shopping? (15 years old or older) Answer Date of Assessment Author Yes 01/08/2021 1:48 AM Gaurav Martínez RN documented as of this encounter Mental Status * Because of a physical, mental, or emotional condition, do you have serious difficulty concentrating, remembering, or making decisions? (5 years old or older) Answer Entry Date Author No 01/08/2021 1:48 AM Gaurav Martínez RN documented in this encounter Plan of Treatment Upcoming Encounters Date Type Department Care Team (Late st Contact Info) Description 03/30/2024 7:10 AM EST Laboratory Lab Mobile Phlebotomy [facility] [address] [facility] [place] [address] [facility] Mobile Home Draw [address] [place] [address] 03/31/2024 6:00 AM EST Anticoagulation [facility] Clinical Pharmacy Services, Renee Wise [address] [place] [address] [place] [address] [place] [address] 05/11/2024 2:00 PM EST Office Visit Infectious Disease [facility] [address] [facility] [place] [address] Sherry Roy MD [address] [place] [address] 05/26/2024 10:30 AM EST Telemedicine [facility] [place] [address] [place] [address] Carolee Manriquez PA-C [address] [place] [address] Edna Baum, Community Health Ethyl Blender [address] [place] [address] 07/11/2024 9:50 AM EDT Office Visit [facility] [address] [facility] [place] [phone] Sherry Maya DO [address] [facility] [place] [address] Scheduled Procedures Name Priority Associated Diagnoses Date/Ti [...] Additional history exists CKD PHOS USE SMARTSET 67698 06/03/202410/2023, 11/06/2021, 09/12/2020, Additional history exists HbA1c 06/04/2024 12/03/2023, 07/26, 03/27/2023, Additional history exists Albumin/Creatinine Ratio 06/19/20242 024, 08/15/2022, 11/06/2021, Additional history exists Depression Monitoring 09/07/2024 09/08/2023 GFR 09/18/2024 03/21/2024, 02/25, 03/07/2024, Additional history exists TSH 02/25/2025 02/26/2024, 06/2023, 09/24/2023, Additional history exists CKD HGB USE SMARTSET 11113 03/21/202503/21, 03/14/2024, 03/07/2024, Additional history exists DTap/Tdap [...] the patient have Health Care Power of Tube Wrapper? Yes, not currently available * Full Code [...] Relationshi p Communication Omar Lyle Adult Child [facility] re Agent Xi Mckeont Adult Child [facility] Care Agent Care Teams Supervisor Network Control Operators Relationship Specialty Start Date End Date Sherry Maya DO [address] [place] [address] PCP - General Family Medicine 11/12/11 documented as of this encounter
--- OUTSIDE RECORDS SUMMARY | 2024-05-24 05:19 | External Medical Summary ---
Author Name Unknown Address Unknown Organization K01:LAB[facility]ORY [facility] [place] - [facility] [address] [place] [address] Laboratory Report Ordering Provider Test Date Status CHRISTAL HERNANDEZ 03/30/2024 07:23:00 Final Observation Date Value Abnormality Reference (Units ) Status WBC, Total 03/30/2024 07:23:00 7.88 4.00-10.80 (K/uL) Final RBC 03/30/2024 07:23:00 4.21 4.50-5.25 (M/uL) Final Hemoglobin 03/30/2024 07:23:00 11.7 Below low normal 14.0-16.8 (g/dL) Final HCT 03/30/2024 07:23:00 37.4 Below low normal 40.0-48.4 (%) Final MCV 03/30/2024 07:23:00 88.8 82.0-99.5 (fL) Final MCH 03/30/2024 07:23:00 27.8 27.0-34.0 (pg) Final MCHC 03/30/2024 07:23:00 31.3 32.0-36.0 (g/dL) Final RDW 03/30/2024 07:23:00 16.1 11.5-15.5 (%) Final Platelets 03/30/2024 07:23:00 450 Above high normal 140-400 (K/uL) Final MPV 03/30/2024 07:23:00 9.4 6.6-11.1 (fL) Final Nucleated erythrocytes/100 leukocytes [Ratio] in Blood by Automated count 03/30/2024 07:23:00 0 <=0 (/100 WBCs) Final Performing Location LAB[facility]ORY [facility] [place] - [address] [place] [address]
--- OUTSIDE RECORDS SUMMARY | 2024-05-24 05:19 | External Medical Summary | Summary of Care ---
Author Name Unknown Organization [facility] Address [address] [place] [address] Phone [phone] Care Team Providers Care Brewery Cellar Worker Name Role Phone Sherry Maya DO Primary Care Provider [phone] Reason for Visit * Reason Onset Date Comments Medication Question 03/29/2024 Encounter Details Date Type Department Care Team (Late st Contact Info) Description 03/29/2024 Telephone [facility], [place] [address] [place] [address] Carolee Manriquez PA-C [address] [place] [address] Medication Question Allergies Active Allergy Reactions Criticality Noted Date Comments Benzonatate 12/08/2016 choking Keyanna Pedraza Other (Please comment) High 04/10/20 09 Choking documented as of this encounter (statuses as of 03/29/2024) Medications ONETOUCH LANCETS MISCIndications:DM type 2, not at goal ([facility]) 3 Box Dosing Unit 1 04/17/20 15 Active Nitroglycerin 0.4 MG Sublingual Tablet Sublingual Place under the tongue every 5 minutes as needed. Up to 3 in 15 minutes. 25 Tab 11 04/17/20 15 Active Magnesium Oxide 400 MG CapsuleIndications:H eart failure, systolic, due to CAD ([facility]),Automatic implantable cardioverter-defibri llator in situ,Chronic ischemic heart disease,Ischemic cardiomyopathy Take 1 Cap by mouth daily. 30 Cap 5 03/16/20 17 Active Glucose Blood (Nanotether Discovery ServicesTOUCH VERIO) STRP USE TO TEST BLOOD GLUCOSE [...] underlying condition ([facility]),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),Right knee pain, unspecified chronicity,Heart failure, systolic, due to CAD ([facility]) Bariatric heavy duty walker- 2 wheels- please document patient's weight at 308 1 Each 02/08/20 Active DIURETIC TITRATION PLANIndications:Hear t failure, systolic, due to CAD ([facility]) If no improvement on day 3, [...] 24 Active Vitamin D (Ergocalciferol) 1.25 MG (59786 UT) Oral Capsule (Drisdol) TAKE ONE CAPSULE [...] needed for Pain, Severe. 60 Tablet 03/18/20 Active Clotrimazole 1 % External Cream (Lotrimin) Apply topically to affected area 2 times a day for 14 days. Apply to stump 60 g 1 03/28/20 24 2023 Active Betamethasone Dipropionate 0.05 % External Cream (Diprosone) Apply topically to affected area 2 times a day. To affected area. 45 g 3 03/28/20 Active documented as of this encounter (statuses as of 03/29/2024) Active Problems Problem Noted Date Diagnosed Date [...] (07/04/2019): Added automatically from request for surgery [id number] 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 [...] as of this encounter (statuses as of 03/29/2024) Resolved Problems Problem Noted Date Diagnosed Date [...] Silent myocardial infarction 03/23/2013 11/08/2018 Accelerate Clinical Trial*[id number] 01/24/2013 05/16/2015 Overview (01/24/2013): ACCELERATE STUDY. Project # [id number], DATA COLLECTION INTERVIEWER: Ben Hoover MD. CRC: DEBORAH Back. SUMMARY: To test the hypothesis that Evacetrapib 130 mg, in comparison to placebo, reduces the risk of major adverse coronary events in high-risk vascular disease patients. CONTACTS: During normal business hours, contact study staff at ; after hours Taping Foreman via the [facility] hospital hydrate thickener operator [phone]. 24-hour Global Study Helpline: [phone]. Lipid levels should not be ordered/obtained while [...] 250 mg, 2) gemfibrozil with a potent [id number]. NINA on CPAP 06/28/2012 01/31/2020 Overview (06/28/2012): [...] as of this encounter (statuses as of 03/29/2024) Immunizations Name Administration Dates Next Due COVID-19 [...] Gaurav Martínez RN documented in this encounter Miscellaneous Notes * Telephone Encounter - Preeti Hays LPN - 03/29/2024 3:45 PM EST Oscar Mancilla, No need to resend prescriptions [facility] pharmacy [place] will call [facility] and get the prescriptions transferred to them The patient will give his debit card information to pharmacy and they will mail them out UPS tomorrow. That way his medications will be delivered right to his porch where he is able to retrieve them Thank you !! * Telephone Encounter - Preeti Hays LPN - 03/29/2024 2:51 PM EST Charo, Sorry but can you hang tight on resending these meds til I get back to you. These plans are changing fluidly and I will let you know where to resend them THANK YOU * Telephone Encounter - Preeti Hays LPN - 03/29/2024 2:20 PM EST Oscar Mancilla, Struggling with getting patient his creams from pharmacy due to no one available to pick them up and they will not accept his payment over the phone I am able to have patient register with [facility] on line and put his payment information in the system and have them process the medication this way I will then have my CHW nut picker med at [facility] and deliver to him Can you please resend these prescriptions to [facility] for the betamethasone and clotrimazole creams THANK YOU !! documented in this encounter Plan of Treatment Upcoming Encounters Date Type Department Care Team (Late st Contact Info) Description 03/30/2024 7:10 AM EST Laboratory Lab Mobile Phlebotomy [facility] [address] [facility] [place] [address] [facility], Gml Mobile Home Draw [address] [facility] [place] [address] 03/31/2024 6:00 AM EST Anticoagulation Centralized Clinical Pharmacy Services, Renee Wise [address] [place] [address] [place] [address] [place] [address] 05/11/2024 2:00 PM EST Office Visit Infectious Disease [facility] [address] [facility] [place] [address] Sherry Roy MD [address] [place] [address] 05/26/2024 10:30 AM EST [facility]medicine [facility], [place] [address] [place] [address] Carolee Manriquez PA-C [address] [place] [address] Edna Baum, Community Health Medical Clerk [address] [place] [address] 07/11/2024 9:50 AM EDT Office Visit [facility] Patricia [address] [facility] [place] [phone] Sherry Maya DO [address] [facility] [place] [address] Scheduled Procedures Name Priority Associated Diagnoses Date/Ti [...] Additional history exists CKD PHOS USE SMARTSET 13895 06/03/2024 0210/2023, 11/06/2021, 09/12/2020, Additional history exists HbA1c 06/04/2024 12/03/2023, 07/26, 03/27/2023, Additional history exists Albumin/Creatinine Ratio 06/19/20242 024, 08/15/2022, 11/06/2021, Additional history exists Depression Monitoring 09/07/2024 09/08/2023 GFR 09/18/2024 03/21/2024, 02/25, 03/07/2024, Additional history exists TSH 02/25/2025 02/26/2024, 06/2023, 09/24/2023, Additional history exists CKD HGB USE SMARTSET 53128 03/21/202503/21, 03/14/2024, 03/07/2024, Additional history exists DTap/Tdap [...] the patient have Health Care Power of Lip And Gate Builder? Yes, not currently available * Full Code [...] Relationshi p Communication Omar Lyle Adult Child [facility] re Agent Xi Lyle Adult Child Health Care Agent Care Teams Brewery Cellar Worker Relationship Specialty Start Date End Date Sherry Maya DO [address] [place] [address] PCP - General Family Medicine 11/12/11 documented as of this encounter
--- OUTSIDE RECORDS SUMMARY | 2024-05-24 05:20 | External Medical Summary | Summary of Care ---
Author Name Unknown Organization [facility] Address [address] [facility] [place] [address] Phone [phone] Care Team Providers Care Bell Person Name Role Phone Sherry Maya DO Primary Care Provider + [phone] Reason for Visit * Reason Onset Date Comments Advice 03/21/2024 Encounter Details Date Type Department Care Team (Late st Contact Info) Description 03/21/2024 Telephone [facility] [place] [address] [facility] [place] [address] Sherry Maya DO [address] [facility] [place] [address] Advice Allergies Active Allergy Reactions Criticality Noted Date Comments Benzonatate 12/08/2016 choking Keyanna Pedraza Other (Please comment) High 04/10/20 09 Choking documented as of this encounter (statuses as of 03/22/2024) Medications ONETOUCH LANCETS MISCIndications:DM type 2, not at goal ([facility]) 3 Box Dosing Unit 1 04/17/20 15 Active Nitroglycerin 0.4 MG Sublingual Tablet Sublingual Place under the tongue every 5 minutes as needed. Up to 3 in 15 minutes. 25 Tab 11 04/17/20 15 Active Magnesium Oxide 400 MG CapsuleIndications:H eart failure, systolic, due to CAD ([facility]),Automatic implantable cardioverter-defibri llator in situ,Chronic ischemic heart disease,Ischemic cardiomyopathy Take 1 Cap by mouth daily. 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),Right knee pain, unspecified chronicity,Heart failure, systolic, due to CAD ([facility]) Bariatric heavy duty walker- 2 wheels- please document patient's weight at 308 1 Each 02/08/20 Active DIURETIC TITRATION PLANIndications:Hear t failure, systolic, due to CAD ([facility]) If no improvement on day [...] 24 Active Vitamin D (Ergocalciferol) 1.25 MG (33566 UT) Oral Capsule (Drisdol) TAKE ONE CAPSULE BY MOUTH EVERY WEEK 12 Capsule 01/04/20 24 Active Potassium Chloride Tiffanie ER 20 MEQ Oral Tablet Extended Release Take 1 Tablet by mouth in the morning and 1 Tablet before bedtime. 60 Tablet 2 03/02/20 24 Active DAPTOmycin 500 MG Intravenous Solution Reconstituted (Cubicin) [...] Pain, Severe. 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 Project # [id number], STUDIO OPERATION ENGINEER: Ben Hoover MD. CRC: DEBORAH Back. SUMMARY: To test the hypothesis that Evacetrapib 130 mg, in comparison to placebo, reduces the risk of major adverse coronary events in high-risk vascular disease patients. CONTACTS: During normal business hours, contact study staff at ; after hours Community Representative via the [facility] hospital feeder operator [phone]. 24-hour Global Study Helpline: [phone]. Lipid levels should not be ordered/obtained while this subject is in the Accelerate study. Lipids are being managed in a blinded fashion. If lipid levels are inadvertently obtained, it is important that test results are NOT provided to the patient, study doctor, project coordinator rn, or other study team members. Restricted meds while in the study: 1) niacin > 250 mg, 2) gemfibrozil with a potent [id number]. NINA on CPAP 06/28/2012 01/31/2020 Overview (06/28/2012): [...] as of this encounter (statuses as of 03/22/2024) Immunizations Name Administration Dates Next Due COVID-19 [...] Telephone Encounter - Dinora Zelaya LPN - 03/22/2024 11:19 AM EST This is regarding IV antibiotic through PICC line that was started in hospital. See TE from 03/18 * Telephone Encounter - Chyna De La Paz OSA - 03/21/2024 11:31 AM EST Patient is requesting to speak with Dr Figueroa in regards to medication that was prescribed by him when he was in the hospital. Patient he is fixing to run out of the medication (antibiotic) and unsurewhether it needs to be continued. Can we check into this and contact patient with clarification. documented in this encounter Plan of Treatment Upcoming Encounters Date Type Department Care Team (Late st Contact Info) Description 03/23/2024 7:10 AM EST Laboratory Lab Mobile Phlebotomy [facility] [address] [place] [address] Mvmg, Gml Mobile Home Draw [address] [facility] [place] [address] 03/25/2024 6:00 AM EST Anticoagulation Centralized Clinical Pharmacy Services, [facility] Frandy [address] [place] [address] [place] [address] [place] [address] 03/29/2024 1:00 PM EST Office Visit Nephrology, [facility] [address] [place] [address] Boogie Menezes MD [address] [place] [address] [address] [address] 05/11/2024 2:00 PM EST [facility] [employer] [address] [facility] [place] [address] Sherry Roy MD [address] [place] [address] 05/26/2024 10:30 AM EST Telemedicine [facility], [place] [address] [place] [address] Carolee Manriquez PA-C [address] [place] [address] Edna Baum, Community Health Bird Keeper [address] [place] [address] 07/11/2024 9:50 AM EDT Office Visit [facility] [address] [place] [address] Sherry Maya DO [address] [place] [address] Scheduled Procedures Name Priority Associated Diagnoses Date/Ti [...] Additional history exists CKD PHOS USE SMARTSET 74930 06/03/2024 02/0 10/2023, 11/06/2021, 09/12/2020, Additional history exists HbA1c 06/04/2024 12/03/2023, 07/26, 03/27/2023, Additional history exists Albumin/Creatinine Ratio 06/19/20242 024, 08/15/2022, 11/06/2021, Additional history exists Depression Monitoring 09/07/2024 09/08/2023 GFR 09/18/2024 03/21/2024, 02/25, 03/07/2024, Additional history exists TSH 02/25/2025 02/26/2024, 10/0 06/2023, 09/24/2023, Additional history exists CKD HGB USE SMARTSET 53343 03/21/202503/21, 03/14/2024, 03/07/2024, Additional history exists DTap/Tdap [...] the patient have Health Care Power of Gravel Inspector? Yes, not currently available * Full [...] Agents on File Name Relationship Healthcare Agent [facility] Omar Mckeont Adult Child [facility] re Agent Xi [place] Adult Child [facility] Care Agent Care Teams Bell Person Relationship Specialty Start Date End Date Sherry Maya DO [address] [place] [address] PCP - General Family Medicine 11/12/11 documented as of this encounter
--- OUTSIDE RECORDS SUMMARY | 2024-05-24 05:20 | External Medical Summary ---
Author Name Unknown Address Unknown Organization K01:LABORATORY [facility] - [address] [place] [address] Laboratory Report Ordering Provider Test Date Status ALIE ROPER 03/23/2024 07:23:00 Final Standing order for pt/inr. < br/>Please draw pt/inr every 1 to 4 weeks as requested
Results to [facility]

Warfarin Therapy
INR: 2.0-3.0 conventional anticoagulation
INR: 2.5-3.5 high intensity anticoagulation Observation Date Value Abnormality Reference (Units ) Status PT 03/23/2024 07:23:00 27.5 Above high normal 11 .6-15.2 (seconds) Final INR 03/23/2024 07:23:00 2.5 Above high normal 0. 8-1.2 Final Performing Location LAB[facility]ATORY [facility] - [address] [place] [address]
--- OUTSIDE RECORDS SUMMARY | 2024-05-24 05:20 | External Medical Summary | Summary of Care ---
Author Name Unknown Organization [facility] Address [address] [facility] [place] [address] Phone [phone] Care Team Providers Care Patternmaker All Around Name Role Phone Sherry Maya DO Primary Care Provider + [phone] Encounter Details Date Type Department Care Team (Late st Contact Info) Description 03/22/2024 Orders Only Family Practice [facility] [address] [place] [address] Anthony Figueroa MD [address] [place] [address] Allergies Active Allergy Reactions Criticality Noted Date [...] Cap by mouth daily. 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 Project # [id number], TELECOMMUNICATIONS SWITCH TECHNICIAN: Ben Hoover MD. CRC: DEBORAH Back. SUMMARY: To test the hypothesis that Evacetrapib 130 mg, in comparison to placebo, reduces the risk of major adverse coronary events in high-risk vascular disease patients. CONTACTS: During normal business hours, contact study staff at ; after hours Setter Induction Heating Equipment via the [facility] hospital milling machine set up operator [phone]. 24-hour Global Study Helpline: [phone]. Lipid levels should not be ordered/obtained while this subject is in the Accelerate study. Lipids are being managed in a blinded fashion. If lipid levels are inadvertently obtained, it is important that test results are NOT provided to the patient, study doctor, after school program coordinator, or other study team members. Restricted meds while in the study: 1) niacin > 250 mg, 2) gemfibrozil with a potent [id number]. NINA on CPAP 06/28/2012 01/31/2020 Overview (06/28/2012): [...] EST Laboratory Lab Mobile Phlebotomy [facility] [address] [place] [address] Mvmg, Gml Mobile Home Draw [address] [facility] [place] [address] 03/25/2024 6:00 AM EST Anticoagulation Centralized Clinical Pharmacy Services, Renee Wise [address] [place] [place] [address] [place] [address] [facility], [address] [place] [address] 05/11/2024 2:00 PM EST [facility] [address] [facility] [place] [address] Sherry Roy MD [address] [place] [address] 07/11/2024 9:50 AM EDT Office Visit [facility] [address] [place] [address] Shrery Maya DO [address] [place] [address] Scheduled Procedures Name Priority Associated Diagnoses Date/Ti [...] Additional history exists CKD PHOS USE SMARTSET 90554 06/03/2024 02/0 10/2023, 11/06/2021, 09/12/2020, Additional history exists HbA1c 06/04/2024 12/03/2023, 07/26, 03/27/2023, Additional history exists Albumin/Creatinine Ratio 06/19/2024 024, 08/15/2022, 11/06/2021, Additional history exists Depression Monitoring 09/07/2024 09/08/2023 GFR 09/18/2024 03/21/2024, 02/25, 03/07/2024, Additional history exists TSH 02/25/2025 02/26/2024, 06/2023, 09/24/2023, Additional history exists CKD HGB USE SMARTSET 55709 03/21/202503/21, 03/14/2024, 03/07/2024, Additional history exists DTap/Tdap [...] Priority Date/Time Associated Diagnosis Comments CHEMISTRY-OUTSIDE Routine 03/21/2024 documented in this encounter Results * (ABNORMAL) CHEMISTRY-OUTSIDE (03/21/2024) Not all results display below - see scan for full detail OUTSIDE LAB (SEE SCANNED REPORT) Comment:SCAN INCL: CMP,CBC,C RP, CK TOTAL CREATININE 1.35(A) 0.70 - 1.30 MG/DL OUTSIDE LAB (SEE SCANNED REPORT) EGFR 60 OUTSIDE LA B (SEE SCANNED REPORT) POTASSIUM 3.5 3.5 - 5.1 MMOL/L OUTSIDE LAB (SEE SCANNED REPORT) GLUCOSE 114(A) 70 - 110 MG/DL OUTSIDE LAB (SEE [...] LAB OUTSIDE LAB (SEE SCANNED REPORT) HEMOGLOBIN, [id number] LAB OUTSIDE LAB (SEE SCANNED REPORT) PHOSPHORUS-OUTSID E LAB OUTSIDE LAB (SEE SCANNED REPORT) PTH-OUTSIDE LAB OUTS ADY LAB (SEE SCANNED REPORT) MICROALBUMIN RATIO-OUTSIDE LAB OUTSIDE LA B (SEE SCANNED REPORT) PROTEIN, UA-OUTSIDE LAB OUTSIDE LAB (SEE SCANNED REPORT) HGB 12.0(A) 13.5 - 18.0 GM/DL OUTSIDE LAB (SEE SCANNED REPORT) 03/21/2024 us Anthony Figueroa MD LABORATORY Final Res [...] the patient have Health Care Power of Carrier Blower? Yes, not currently available * Full Code [...] on File Name Relationship Healthcare Agent [facility] Communication Omar Lyle Adult Child [facility] re Agent Xi Mckeont Adult Child [facility] Care Agent Care Teams Patternmaker All Around Relationship Specialty Start Date End Date Sherry Maya DO [address] [place] [address] PCP - General Family Medicine 11/12/11 documented as of this encounter
--- OUTSIDE RECORDS SUMMARY | 2024-05-24 05:20 | External Medical Summary | Summary of Care ---
Author Name Unknown Organization [facility] Address [address] [facility] [address] Phone [phone] Care Team Providers Care Unix Administrator Name Role Phone Sherry Maya DO Primary Care Provider + [phone] Reason for Visit * Reason Onset Date Comments Advice 03/21/2024 Encounter Details Date Type Department Care Team (Late st Contact Info) Description 03/21/2024 [facility]phone [facility] [address] [facility] [place] [address] Sherry Maya DO [address] [facility] [place] [address] Advice Allergies Active Allergy Reactions [...] CapsuleIndications:H eart failure, systolic, due to CAD ([facility]),Automatic implantable cardioverter-defibri llator in situ,Chronic ischemic heart disease,Ischemic cardiomyopathy Take 1 Cap by mouth daily. 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 Project # [id number], MEDIA ACCOUNT EXECUTIVE: Ben Hoover MD. CRC: DEBORAH Back. SUMMARY: To test the hypothesis that Evacetrapib 130 mg, in comparison to placebo, reduces the risk of major adverse coronary events in high-risk vascular disease patients. CONTACTS: During normal business hours, contact study staff at ; after hours Carburetor Mechanic via the [facility] hospital track grinder operator [phone]. 24-hour Global Study Helpline: [phone]. Lipid levels should not be ordered/obtained while this subject is in the Accelerate study. Lipids are being managed in a blinded fashion. If lipid levels are inadvertently obtained, it is important that test results are NOT provided to the patient, study doctor, staff development coordinator rn, or other study team members. Restricted meds while in the study: 1) niacin > 250 mg, 2) gemfibrozil with a potent [id number]. NINA on CPAP 06/28/2012 01/31/2020 Overview (06/28/2012): [...] Info) Description 03/22/2024 2:30 PM EST Telemedicine [facility] [address] [place] [address] Carolee Manriquez PA-C [address] [place] [address] Edna Baum, Community Health Shipmaster [address] [place] [address] 03/23/2024 7:10 AM EST Laboratory Lab Mobile Phlebotomy [facility] [address] [facility] [place] [address] Mvmg, Gml Mobile Home Draw [address] [employer] [facility] [place], [place] [address] 03/25/2024 6:00 AM EST Anticoagulation Centralized Clinical Pharmacy Services, Renee Wise [address] [place] [address] [place] [address] [place] [address] 05/11/2024 2:00 PM EST Office [facility] [place] [address] [place] [place] [address] Sherry Roy MD [address] [facility] [address] 07/11/2024 9:50 AM EDT Office Visit [facility] [address] [facility] [place] [phone] Sherry Maya DO [address] [facility] [place] [address] Scheduled Procedures Name Priority Associated Diagnoses Date/Ti [...] Additional history exists CKD PHOS USE SMARTSET 36135 06/03/202410/2023, 11/06/2021, 09/12/2020, Additional history exists HbA1c 06/04/2024 12/03/2023, 07/26, 03/27/2023, Additional history exists Albumin/Creatinine Ratio 06/19/2024 024, 08/15/2022, 11/06/2021, Additional history exists Depression Monitoring 09/07/2024 09/08/2023 GFR 09/11/2024 03/14/2024, 02/25, 03/07/2024, Additional history exists TSH 02/25/2025 02/26/2024, 06/2023, 09/24/2023, Additional history exists CKD HGB USE SMARTSET 50724 03/14/202503/14, 03/07/2024, 03/07/2024, Additional history exists DTap/Tdap Vaccines (3 [...] the patient have Health Care Power of Clinical Data Programmer? Yes, not currently available * Full Code [...] File Name Relationship Healthcare Agent [facility] Communication Omar Lyle Adult Child [facility] re Agent Xi Lyle Adult Child [facility] Care Agent Care Teams Unix Administrator Relationship Specialty Start Date End Date Sherry Maya DO [address] [place] [address] PCP - General Family Medicine 11/12/11 documented as of this encounter
--- OUTSIDE RECORDS SUMMARY | 2024-05-24 05:21 | External Medical Summary | Summary of Care ---
Author Name Unknown Organization [facility] Address [address] [facility] [place] [address] Phone [phone] Care Team Providers Care Pump Erector Name Role Phone Sherry Maya DO Primary Care Provider + [phone] Reason for Visit * Reason Onset Date Comments Order Request 03/18/2024 Encounter Details Date Type Department Care Team (Late st Contact Info) Description 03/18/2024 [facility]phone [facility] [address] [place] [address] Sherry Maya DO [address] [place] [address] Order Request Allergies Active Allergy Reactions Criticality Noted Date Comments Benzonatate 12/08/2016 choking Keyanna Pedraza Other (Please comment) High 04/10/20 09 Choking documented as of this encounter (statuses as of 03/18/2024) Medications ONETOUCH LANCETS MISCIndications:DM type 2, not at goal ([facility]) 3 Box Dosing Unit 1 04/17/20 15 Active Nitroglycerin 0.4 MG Sublingual Tablet Sublingual Place under the tongue every 5 minutes as needed. Up to 3 in 15 minutes. 25 Tab 11 04/17/20 15 Active Magnesium Oxide 400 MG CapsuleIndications:H eart failure, systolic, due to CAD ([facility]),Automatic implantable cardioverter-defibri llator in situ,Chronic ischemic heart disease,Ischemic cardiomyopathy Take 1 Cap by mouth daily. 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),Right knee pain, unspecified chronicity,Heart failure, systolic, due to CAD ([facility]) Bariatric heavy duty walker- 2 wheels- please document patient's weight at 308 1 Each 02/08/20 Active DIURETIC TITRATION PLANIndications:Hear t failure, systolic, due to CAD ([facility]) If no improvement on day 3, [...] 24 Active Vitamin D (Ergocalciferol) 1.25 MG (16139 UT) Oral Capsule (Drisdol) TAKE ONE CAPSULE [...] as of this encounter (statuses as of 03/18/2024) Active Problems Problem Noted Date Diagnosed Date [...] (07/04/2019): Added automatically from request for surgery [id number] 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 Project # [id number], RETAIL STORE ASSISTANT: Ben Hoover MD. CRC: DEBORAH Back. SUMMARY: To test the hypothesis that Evacetrapib 130 mg, in comparison to placebo, reduces the risk of major adverse coronary events in high-risk vascular disease patients. CONTACTS: During normal business hours, contact study staff at ; after hours Waiter/Waitress Head via the [facility] hospital trim master operator [phone]. 24-hour Global Study Helpline: [phone]. Lipid levels should not be ordered/obtained while this subject is in the Accelerate study. Lipids are being managed in a blinded fashion. If lipid levels are inadvertently obtained, it is important that test results are NOT provided to the patient, study doctor, survey coordinator, or other study team members. Restricted meds while in the study: 1) niacin > 250 mg, 2) gemfibrozil with a potent [id number]. NINA on CPAP 06/28/2012 01/31/2020 Overview (06/28/2012): [...] as of this encounter (statuses as of 03/18/2024) Immunizations Name Administration Dates Next Due COVID-19 [...] of Assessment Author Yes 01/08/2021 1:48 AM JAXT Gaurav Redd RN documented as of this encounter Mental Status * Because of a physical, mental, or emotional condition, do you have serious difficulty concentrating, remembering, or making decisions? (5 years old or older) Answer Entry Date Author No 01/08/2021 1:48 AM Gaurav Martínez RN documented in this encounter Miscellaneous Notes * Telephone Encounter - Nancy Mcmahan LPN - 03/18/2024 3:25 PM EST Updated order faxed * Telephone Encounter - Jordan Pan OSA - 03/18/2024 1:57 PM EST An order was requested for this patient. Name of Requesting Provider: Sherry Maya DO Order Requested: Bariatric hospital bed Diagnosis/Reason for Request: Script was placed by Sherry Maya DO already however with the patients weight it has to be a bariatric order. If order request is for Mammogram: Is the patient having any breast symptoms? N/A Is there a chance of ? N/A Has the patient had any breast problems in the past? NA What location AND department does the patient wish to have their order completed at? [facility]. Fax Number, if applicable: [phone] If the caller is not a current patient, please advise the patient to call their current PCP to havethe order's prior to being seen in our office. The patient was informed that our providers would not order anything (medication, labs, etc.) prior to being seen. documented in this encounter Plan of Treatment Upcoming Encounters Date Type Department Care Team (Late st Contact Info) Description 03/22/2024 2:30 PM EST Telemedicine [facility] [address] [place] [address] Carolee Manriquez PA-C [address] [place] [address] Edna Baum, Community Health Supervisor Labor Gang [address] [place] [address] 03/23/2024 7:10 AM EST Laboratory Lab Mobile Phlebotomy [facility] [address] [facility] [address] [place] [address] Mvmg, Gml Mobile Home Draw [address] [facility] [place] [address] 03/25/2024 6:00 AM EST Anticoagulation Centralized Clinical Pharmacy Services, Renee Wise [address] [place] [address] [place] [address] [facility], [address] [place] [address] 05/11/2024 2:00 PM EST [facility] [address] [facility] [place] [address] Sherry Roy MD [address] [place] [address] 07/11/2024 9:50 AM EDT Office Visit Family [facility] [address] [place] [phone] Sherry Maya, DO [address] [place] [address] Scheduled Procedures Name Priority Associated Diagnoses Date/Ti [...] Additional history exists CKD PHOS USE SMARTSET 60824 06/03/2024 02/0 10/2023, 11/06/2021, 09/12/2020, Additional history exists HbA1c 06/04/2024 12/03/2023, 07/26, 03/27/2023, Additional history exists Albumin/Creatinine Ratio 06/19/2024 024, 08/15/2022, 11/06/2021, Additional history exists Depression Monitoring 09/07/2024 09/08/2023 GFR 09/11/2024 03/14/2024, 02/25, 03/07/2024, Additional history exists TSH 02/25/2025 02/26/2024, 100 06/2023, 09/24/2023, Additional history exists CKD HGB USE SMARTSET 25301 03/14/202503/14, 03/07/2024, 03/07/2024, Additional history exists DTap/Tdap [...] Primary documented in this encounter Advance Directives * [...] the patient have Health Care Power of Accounts Receivable Representative? Yes, not currently available * Full Code [...] Relationshi p Communication Omar Lyle Adult Child [facility] re Agent [facility] Care Agent Care Teams Pump Erector Relationship Specialty Start Date End Date Sherry Maya DO [address] [place] [address] PCP - General Family Medicine 11/12/11 documented as of this encounter
--- OUTSIDE RECORDS SUMMARY | 2024-05-24 05:21 | External Medical Summary | Summary of Care ---
Author Name Unknown Organization [facility] Address [address] [facility] [place] [address] Phone [phone] Care Team Providers Care Butcher All Round Name Role Phone Sherry Maya DO Primary Care Provider + [phone] Reason for Visit * Reason Onset Date Comments Order Request 03/18/2024 Encounter Details Date Type Department Care Team (Late st Contact Info) Description 03/18/2024 Telephone [facility] [address] [place] [address] Sherry Maya DO [address] [place] [address] Order Request Allergies Active Allergy Reactions Criticality Noted Date Comments Benzonatate 12/08/2016 choking Keyanna Pedraza Other (Please comment) High 04/10/20 09 Choking documented as of this encounter (statuses as of 03/18/2024) Medications ONETOUCH LANCETS MISCIndications:DM type 2, not at goal ([facility]) 3 Box Dosing Unit 1 04/17/20 15 Active Nitroglycerin 0.4 MG Sublingual Tablet Sublingual Place under the tongue every 5 minutes as needed. Up to 3 in 15 minutes. 25 Tab 11 04/17/20 15 Active Magnesium Oxide 400 MG CapsuleIndications:H eart failure, systolic, due to CAD ([facility]),Automatic implantable cardioverter-defibri llator in situ,Chronic ischemic heart disease,Ischemic cardiomyopathy Take 1 Cap by mouth daily. 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),Right knee pain, unspecified chronicity,Heart failure, systolic, due to CAD ([facility]) Bariatric heavy duty walker- 2 wheels- please document patient's weight at 308 1 Each 02/08/20 Active DIURETIC TITRATION PLANIndications:Hear t failure, systolic, due to CAD ([facility]) If no improvement on day 3, [...] 24 Active Vitamin D (Ergocalciferol) 1.25 MG (22572 UT) Oral Capsule (Drisdol) TAKE ONE CAPSULE [...] (07/04/2019): Added automatically from request for surgery [id number] 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 [...] Silent myocardial infarction 03/23/2013 11/08/2018 Accelerate Clinical Trial*[id number] 01/24/2013 05/16/2015 Overview (01/24/2013): ACCELERATE STUDY. Project # [id number], LABORER SHAFT SINKING: Ben Hoover MD. CRC: DEBORAH Back. SUMMARY: To test the hypothesis that Evacetrapib 130 mg, in comparison to placebo, reduces the risk of major adverse coronary events in high-risk vascular disease patients. CONTACTS: During normal business hours, contact study staff at ; after hours Hypercil Core Transformer Assembler via the [facility] hospital gum machine operator [phone]. 24-hour Global Study Helpline: [phone]. Lipid levels should not be ordered/obtained while this subject is in the Accelerate study. Lipids are being managed in a blinded fashion. If lipid levels are inadvertently obtained, it is important that test results are NOT provided to the patient, study doctor, volunteer coordinator, or other study team members. Restricted meds while in the study: 1) niacin > 250 mg, 2) gemfibrozil with a potent [id number]. NINA on CPAP 06/28/2012 01/31/2020 Overview (06/28/2012): [...] wish to have their order completed at? [facility]. Fax Number, if applicable: [phone] If the caller is not a current [...] Info) Description 03/22/2024 2:30 PM EST Telemedicine [facility] at [facility] [address] [place] [address] Carolee Manriquez PA-C [address] [place] [address] Edna Baum, Community Health Retail Supervisor [address] [place] [address] 03/23/2024 7:10 AM EST Laboratory Lab Mobile Phlebotomy [facility] [address] [place] [address] Mvmg, Gml Mobile Home Draw [address] [place] [address] 03/25/2024 6:00 AM EST Anticoagulation Centralized Clinical Pharmacy Services, Renee Wise [address] [place] [address] [place] [address] [facility], [address] [place] [address] 05/11/2024 2:00 PM EST [facility] [address] [facility] [place] [address] Sherry Roy MD [address] [place] [address] 07/11/2024 9:50 AM EDT Office Visit Family [facility] [address] [place] [phone] Sherry Maya, DO [address] [place] [address] Scheduled Procedures Name Priority Associated Diagnoses Date/Ti [...] Additional history exists CKD PHOS USE SMARTSET 07313 06/03/2024 02/0 10/2023, 11/06/2021, 09/12/2020, Additional history exists HbA1c 06/04/2024 12/03/2023, 07/26, 03/27/2023, Additional history exists Albumin/Creatinine Ratio 06/19/2024 024, 08/15/2022, 11/06/2021, Additional history exists Depression Monitoring 09/07/2024 09/08/2023 GFR 09/11/2024 03/14/2024, 02/25, 03/07/2024, Additional history exists TSH 02/25/2025 02/26/2024, 100 06/2023, 09/24/2023, Additional history exists CKD HGB USE SMARTSET 60676 03/14/202503/14, 03/07/2024, 03/07/2024, Additional history exists DTap/Tdap [...] the patient have Health Care Power of Track Worker? Yes, not currently available * Full [...] Relationshi p Communication Omar Lyle Adult Child [facility] re Agent Xi [facility]May[facility] Care Agent Care Teams Butcher All Round Relationship Specialty Start Date End Date Sherry Maya DO [address] [place] [address] PCP - General Family Medicine 11/12/11 documented as of this encounter
--- OUTSIDE RECORDS SUMMARY | 2024-05-24 05:21 | External Medical Summary | Summary of Care ---
Author Name Unknown Organization [facility] Address [address] [facility] [place] [address] Phone [phone] Care Team Providers Care Sheet Combining Operator Name Role Phone Sherry Maya DO Primary Care Provider + [phone] Reason for Visit * Reason Onset Date Comments Nurse Documentation 03/17/2024 Toño home are Encounter Details Date Type Department Care Team (Late st Contact Info) Description 03/17/2024 Telephone [facility] [address] [place] [address] Sherry Maya DO [address] [place] [address] Nurse Documentation [facility] Allergies Active Allergy Reactions Criticality Noted Date Comments Benzonatate 12/08/2016 choking Keyanna Pedraza Other (Please comment) High 04/10/20 09 Choking documented as of this encounter (statuses as of 03/18/2024) Medications ONETOUCH LANCETS MISCIndications:DM type 2, not at goal ([facility]) 3 Box Dosing Unit 1 04/17/20 15 Active Nitroglycerin 0.4 MG Sublingual Tablet Sublingual Place under the tongue every 5 minutes as needed. Up to 3 in 15 minutes. 25 Tab 11 04/17/20 15 Active Magnesium Oxide 400 MG CapsuleIndications:H eart failure, systolic, due to CAD ([facility]),Automatic implantable cardioverter-defibri llator in situ,Chronic ischemic heart disease,Ischemic cardiomyopathy Take 1 Cap by mouth daily. 30 Cap 5 03/16/20 17 Active Glucose Blood (3TEN8TOUCH VERIO) STRP USE TO TEST BLOOD GLUCOSE 8 TIMES A DAY 800 Strip 3 03/18/20 19 Active Insulin Aspart 100 UNIT/ML Injection Solution Inject under the skin. FOR USE IN PUMP Active Outline AppToCAIS Verio Flex System w/Device Kit Use as [...] teomyelitis of foot, left, acute ([facility]),Diabetic polyneuropathy associated with diabetes mellitus due to [...] polyneuropathy associated with type 1 diabetes mellitus ([facility]),HTN, goal below 130/80,Abnormal electrocardiogram Take 1 Tablet [...] Cramping. for abdominal pain 40 Tablet 2 08/05/20 24 Active Pregabalin 50 MG Oral Capsule (Lyrica)Indications: Diabetic polyneuropathy associated with type 2 diabetes mellitus (HCC),S/P BKA (below knee amputation) unilateral, left (HCC),Leg wound, right, initial encounter Take 1 Capsule by mouth in the morning and 1 Capsule at noon and 1 Capsule before bedtime. 60 Capsule 12/31/19 24 Active Vitamin D (Ergocalciferol) 1.25 MG (82290 UT) Oral Capsule (Drisdol) TAKE ONE CAPSULE [...] as needed for Pain, Severe. 60 Tablet 02/29/20 24 Active documented as of this encounter [...] (07/04/2019): Added automatically from request for surgery [id number] 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 [...] Silent myocardial infarction 03/23/2013 11/08/2018 Accelerate Clinical Trial*[id number] 01/24/2013 05/16/2015 Overview (01/24/2013): ACCELERATE STUDY. Project # [id number], LENS CLEANER: Ben Hoover MD. CRC: DEBORAH Back. SUMMARY: To test the hypothesis that Evacetrapib 130 mg, in comparison to placebo, reduces the risk of major adverse coronary events in high-risk vascular disease patients. CONTACTS: During normal business hours, contact study staff at ; after hours Distribution Center Associate via the [facility] hospital sodium chlorite operator [phone]. 24-hour Global Study Helpline: [phone]. Lipid levels should not be ordered/obtained while this subject is in the Accelerate study. Lipids are being managed in a blinded fashion. If lipid levels are inadvertently obtained, it is important that test results are NOT provided to the patient, study doctor, technical project coordinator, or other study team members. Restricted meds while in the study: 1) niacin > 250 mg, 2) gemfibrozil with a potent [id number]. NINA on CPAP 06/28/2012 01/31/2020 Overview (06/28/2012): [...] Date Author No 01/08/2021 1:48 AM EDT Ivania, Mat thew W, RN documented in this encounter Miscellaneous Notes * Telephone Encounter - Cassi Toro LPN - 03/17/2024 11:42 AM EST Received Fax for BFPROVIDERS: Dr. Kwame Parks FORM received from [facility] and FAXED documented in this encounter Plan of Treatment Upcoming Encounters Date Type Department Care Team (Late st Contact Info) Description 03/22/2024 6:00 AM EST Anticoagulation Centralized Clinical Pharmacy Services, [facility] Wise [address] [place] [address] [place] [address] [facility], [address] [place] [address] 03/22/2024 2:30 PM EST Telemedicine [facility], [place] [address] [place] [address] Carolee Manriquez PA-C [address] [place] [address] Edna Baum, Community Health Loan Counselor [address] [place] [address] 03/23/2024 7:10 AM EST Laboratory Lab Mobile Phlebotomy [facility] [address] [facility] [place] [address] [facility], Gml Mobile Home Draw [address] [employer] [place] [address] 05/11/2024 2:00 PM EST Office Visit Infectious Disease [facility] [place] [address] [facility] [place] [address] Sherry Roy MD [address] [place] [address] 07/11/2024 9:50 AM EDT Office Visit [address] [place] [address] Sherry Maya, DO [address] [place] [address] Scheduled Procedures Name Priority Associated Diagnoses Date/Ti [...] Additional history exists CKD PHOS USE SMARTSET 55739 06/03/2024 0210/2023, 11/06/2021, 09/12/2020, Additional history exists HbA1c 06/04/2024 12/03/2023, 07/26, 03/27/2023, Additional history exists Albumin/Creatinine Ratio 06/19/202406/19/2 024, 08/15/2022, 11/06/2021, Additional history exists Depression Monitoring 09/07/2024 09/08/2023 GFR 09/11/2024 03/14/2024, 02/25, 03/07/2024, Additional history exists TSH 02/25/2025 02/26/2024, 06/2023, 09/24/2023, Additional history exists CKD HGB USE SMARTSET 36965 03/14/202503/14, 03/07/2024, 03/07/2024, Additional history exists DTap/Tdap [...] the patient have Health Care Power of Risk Investigator? Yes, not currently available * Full Code [...] Lyle Adult Child [facility] re Agent [facility] Care Agent Care Teams Sheet Combining Operator Relationship Specialty Start Date End Date Sherry Maya DO [address] [place], [place] [id number] PCP - General Family Medicine 11/12/11 documented as of this encounter
--- OUTSIDE RECORDS SUMMARY | 2024-05-24 05:21 | External Medical Summary | Summary of Care ---
Author Name Unknown Organization [facility] Address [address] [facility] [place] [address] Phone [phone] Care Team Providers Care Patient Financial Services Specialist Name Role Phone David Maya DO Primary Care Provider + [phone] Reason for Visit * Reason Onset Date Comments Medication Refill 03/16/2024 Encounter Details Date Type Department Care Team (Late st Contact Info) Description 03/16/2024 Refill [facility] [address] [place] [address] Kwame Parks MD [address] [place] [address] S/P BKA (below knee amputation) [...] CapsuleIndications:H eart failure, systolic, due to CAD ([facility]),Automatic implantable cardioverter-defibri llator in situ,Chronic ischemic heart disease,Ischemic cardiomyopathy Take 1 Cap by mouth daily. 30 Cap 5 Active Glucose Blood (MetrixLabTOUCH VERIO) STRP USE TO TEST BLOOD GLUCOSE 8 TIMES A DAY 800 Strip 3 Active Insulin Aspart 100 UNIT/ML Injection Solution Inject under the skin. FOR USE IN PUMP Active BindHQToNext Generation Dance Verio Flex System w/Device Kit Use as [...] Active WalkerIndications:Os teomyelitis of foot, left, acute ([facility]),Diabetic polyneuropathy associated with diabetes mellitus due to underlying condition ([facility]),Ulcer of right foot with necrosis of muscle ([facility]),Right knee pain, unspecified chronicity,Heart failure, systolic, due to CAD ([facility]) Bariatric heavy duty walker- 2 wheels- please document patient's weight at 308 1 Each Active DIURETIC TITRATION PLANIndications:Hear t failure, systolic, due to CAD ([facility]) If no improvement on day [...] by mouth daily. With food. 100 Tablet Active Acetaminophen 325 MG Oral Tablet (Tylenol) Take 2 Tablets by mouth as needed (for mild to moderate reaction (infusion reaction protocol)). 2 Tablet Active Meclizine HCl 12.5 MG Oral Tablet (Antivert) Take by mouth 1 Tablet as needed in the morning AND 1 Tablet as needed at noon AND 1 Tablet as needed in the evening for Dizziness. 30 Tablet Active Fluticasone Propionate 50 MCG/ACT Nasal SuspensionIndication [...] 1 Tablet before bedtime. 60 Tablet Active Levothyroxine Sodium 88 MCG Oral [...] by mouth in the morning. 100 Capsule 024 Active Triamcinolone Acetonide 0.1 % External Lotion (Aristocort)Indicati ons:Other eczema Apply topically to affected area 2 times a day. To dry skin on the lower legs and stump. Avoid on open wounds 60 mL 024 Active Atorvastatin Calcium 80 MG Oral [...] Nausea. 30 minutes before meals 30 Tablet 024 Active Additional Information Patient not taking.Reported [...] 1 Capsule before bedtime. 60 Capsule 024 Active Vitamin D (Ergocalciferol) 1.25 MG (52724 UT) Oral Capsule (Drisdol) TAKE ONE CAPSULE BY MOUTH EVERY WEEK 12 Capsule Active Potassium Chloride Tiffanie ER 20 MEQ Oral Tablet Extended Release Take 1 Tablet by mouth in the morning and 1 Tablet before bedtime. 60 Tablet 2 024 Active DAPTOmycin 500 MG Intravenous Solution Reconstituted (Cubicin) Administer 500 mg intravenously in the morning. Active Meropenem 1 GM Intravenous Solution Reconstituted (Merrem) Administer 1,000 mg intravenously in the morning and 1,000 mg at noon and 1,000 mg before bedtime. 024 Active oxyCODONE HCl 10 MG Oral Tablet (Roxicodone)Indicati ons:S/P BKA (below knee amputation) unilateral, left (HCC),Diabetic polyneuropathy associated with type 2 diabetes mellitus (HCC),Leg wound, right, initial encounter Take 1 Tablet by mouth every 6 hours as needed for Pain, Severe. 60 Tablet 024 Active oxyCODONE HCl 10 MG Oral Tablet (Roxicodone)Indicati ons:S/P BKA (below knee amputation) unilateral, left (HCC),Diabetic polyneuropathy associated with type 2 diabetes mellitus (HCC),Leg wound, right, initial encounter Take 1 Tablet by mouth every 6 hours as needed for Pain, Severe. 60 Tablet 024 2023 Disconti nucollin(Ref ill) documented as of this encounter (statuses [...] (07/04/2019): Added automatically from request for surgery [id number] 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 [...] Silent myocardial infarction 03/23/2013 11/08/2018 Accelerate Clinical Trial*[id number] 01/24/2013 05/16/2015 Overview (01/24/2013): ACCELERATE STUDY. Project # [id number], OFFICE ASSISTANT: Ben Hoover MD. CRC: DEBORAH Back. SUMMARY: To test the hypothesis that Evacetrapib 130 mg, in comparison to placebo, reduces the risk of major adverse coronary events in high-risk vascular disease patients. CONTACTS: During normal business hours, contact study staff at ; after hours Construction Electrician via the [facility] hospital pickling tank operator [phone]. 24-hour Global Study Helpline: [phone]. Lipid levels should not be ordered/obtained while this subject is in the Accelerate study. Lipids are being managed in a blinded fashion. If lipid levels are inadvertently obtained, it is important that test results are NOT provided to the patient, study doctor, catering coordinator, or other study team members. Restricted meds while in the study: 1) niacin > 250 mg, 2) gemfibrozil with a potent [id number]. NINA on CPAP 06/28/2012 01/31/2020 Overview (06/28/2012): [...] Telephone Encounter - David Maya DO - 03/18/2024 9:53 AM ESTSigned Prescriptions: Disp Refills oxyCODONE HCl 10 MG Oral Tablet (Roxicodon*60 Tab*0 Sig: Take 1 Tablet by mouth every 6 hours as needed for Pain, Severe. Authorizing Provider: DAVID MAYA * Telephone Encounter - Alyson Saez [facility] - 03/18/2024 6:05 AM ESTPending Prescriptions: Disp Refills oxyCODONE HCl 10 MG Oral Tablet (Roxicodon*60 Tab*0 Sig: Take 1 Tablet by mouth every 6 hours as needed for Pain, Severe. * Telephone Encounter - Alyson Saez [facility] - 03/18/2024 6:05 AM EST I have reviewed the patients controlled substance dispensing history in the Prescription Drug Monitoring Program in compliance with the [facility] regulations before prescribing a controlled substance. PDMP checked on 03/18/2024. Pending Prescriptions: Disp Refills oxyCODONE HCl 10 MG Oral Tablet (Roxicodo*60 Tab*0 Sig: Take 1 Tablet by mouth every 6 hours as needed for Pain, Severe. Last Visit: 02/29/2024 (in office), 12/15/2023 (telemedicine) Next Visit: Visit date not found Date medication was last filled: 02/29/24 Date medication is due for refill: 03/15/24 Pharmacy: [id number] Is this request for a controlled substance? Yes and Urine Drug Screen Not completed Toxicology results: No results found. However, due to the size of the patient record, not all encounters were searched.Please check Results Review for a complete set of results. Please approve if appropriate. Thank You, Alyson Saez [facility] Clinical Pharmacist Centralized Clinical Pharmacy Services (CCPS) [phone] 03/18/2024, 6:05 AM documented in this encounter Plan of Treatment Upcoming Encounters Date Type Department Care Team (Late st Contact Info) Description 03/22/2024 6:00 AM EST Anticoagulation Centralized Clinical Pharmacy Services, Renee Wise [address] [place] [address] [place] [address] [facility], [address] [place] [address] 03/22/2024 2:30 PM EST [facility]medicine [facility], [place] [address] [place] [address] Carolee Manriquez PA-C [address] [place] [address] Edna Baum, Community Health House Detective [address] [place] [address] 03/23/2024 7:10 AM EST Laboratory Lab Mobile Phlebotomy [facility] [address] [facility] [place], [place] [address] [facility], Gml Mobile Home Draw [address] [facility] [place] [address] 05/11/2024 2:00 PM EST Office Visit Infectious Disease [facility] [address] [facility] [place] [address] Sherry Roy MD [address] [place] [address] 07/11/2024 9:50 AM EDT Office Visit Family [facility] [address] [place] [address] David Maya, DO [address] [place] [address] Scheduled Procedures Name Priority Associated Diagnoses Date/Ti [...] Additional history exists CKD PHOS USE SMARTSET 01496 06/03/202410/2023, 11/06/2021, 09/12/2020, Additional history exists HbA1c 06/04/2024 12/03/2023, 07/26, 03/27/2023, Additional history exists Albumin/Creatinine Ratio 06/19/202406/19/2 024, 08/15/2022, 11/06/2021, Additional history exists Depression Monitoring 09/07/2024 09/08/2023 GFR 09/11/2024 03/14/2024, 02/25, 03/07/2024, Additional history exists TSH 02/25/2025 02/26/2024, 10/0 06/2023, 09/24/2023, Additional history exists CKD HGB USE SMARTSET 01117 03/14/202503/14, 03/07/2024, 03/07/2024, Additional history exists DTap/Tdap [...] the patient have Health Care Power of Mineral Ore Processing Labourer? Yes, not currently available * Full Code [...] Agents on File Name Relationship Healthcare [facility] Omar Mckeont Adult Child [facility] re Agent Xi Mckeont Adult Child [facility] Care Agent Care Teams Patient Financial Services Specialist Relationship Specialty Start Date End Date David Maya DO [address] [place] [address] PCP - General Family Medicine 11/12/11 documented as of this encounter
--- OUTSIDE RECORDS SUMMARY | 2024-05-24 05:21 | External Medical Summary | Summary of Care ---
Author Name Unknown Organization [facility] Address [address] [facility] [place] [address] Phone [phone] Care Team Providers Care Private Duty Rn Name Role Phone Sherry Maya DO Primary Care Provider + [phone] Reason for Visit * Reason Onset Date Comments Order Request 03/14/2024 Encounter Details Date Type Department Care Team (Late st Contact Info) Description 03/14/2024 Telephone [facility] [address] [place] [address] Sherry Maya DO [address] [place] [address] Order Request Allergies Active Allergy [...] Cap 5 03/16/20 17 Active Glucose Blood (Deep NinesTOUCH VERIO) STRP USE TO TEST BLOOD GLUCOSE [...] 24 Active Vitamin D (Ergocalciferol) 1.25 MG (23442 UT) Oral Capsule (Drisdol) TAKE ONE CAPSULE [...] (07/04/2019): Added automatically from request for surgery [id number] 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 [...] Silent myocardial infarction 03/23/2013 11/08/2018 Accelerate Clinical Trial*[id number] 01/24/2013 05/16/2015 Overview (01/24/2013): ACCELERATE STUDY. Project # [id number], FURNACE MECHANIC HELPER: Ben Hoover MD. CRC: DEBORAH Back. SUMMARY: To test the hypothesis that Evacetrapib 130 mg, in comparison to placebo, reduces the risk of major adverse coronary events in high-risk vascular disease patients. CONTACTS: During normal business hours, contact study staff at ; after hours Hotel Custodian via the [facility] hospital videotape operator [phone]. 24-hour Global Study Helpline: [phone]. Lipid levels should not be ordered/obtained while this subject is in the Accelerate study. Lipids are being managed in a blinded fashion. If lipid levels are inadvertently obtained, it is important that test results are NOT provided to the patient, study doctor, computer security coordinator, or other study team members. Restricted meds while in the study: 1) niacin > 250 mg, 2) gemfibrozil with a potent [id number]. NINA on CPAP 06/28/2012 01/31/2020 Overview (06/28/2012): [...] encounter Miscellaneous Notes * Telephone Encounter - Reny Garcia LPN - 03/18/2024 8:54 AM EST Lori returned call. What was ordered was all that was needed. Informed it was sent to [facility]. Verbalized understanding. * Telephone Encounter - Nieves Baum LPN - 03/17/2024 3:01 PM EST DME sent to [facility]. * Telephone Encounter - Sherry Maya DO - 03/17/2024 1:59 PM EST I wrote for this on the bed, does he need a different order or something additional * Telephone Encounter - Ladonna Haynes OSA - 03/14/2024 1:00 PM EST An order was requested for this patient. Name of Requesting Provider: [facility] Order Requested: [facility] bed Diagnosis/Reason for Request: pt has right wound with wound vac and a left prosthetic If order request is for Mammogram: Is the patient having any breast symptoms? N/A Is there a chance of ? N/A Has the patient had any breast problems in the past? NA What location AND department does the patient wish to have their order completed at? [employer] [address] [facility], [place] [address] Fax Number, if applicable: [phone] Please call Lori back once placed so she can f/u with [facility]. Thank you If the caller is not a current [...] Anticoagulation Centralized Clinical Pharmacy Services, Renee Wise [address] [place] [address] [place] [address] [facility], [address] [place] [address] 03/22/2024 2:30 PM EST Telemedicine [facility], [place] [address] [place] [address] Carolee Manriquez PA-C [address] [place] [address] Edna Baum, Community Health Culinary Worker [address] [place] [address] 03/23/2024 7:10 AM EST Laboratory Lab Mobile Phlebotomy [facility] [address] [facility] [place] [address] [facility], Gml Mobile Home Draw [address] [facility] [place] [address] 05/11/2024 2:00 PM EST Office Visit Infectious Disease [facility] [address] [place] [address] Sherry Roy MD [address] [place] [address] 07/11/2024 9:50 AM EDT Office Visit [facility] [address] [place] [address] Sherry Maya, [address] [place] [address] Scheduled Procedures Name Priority Associated Diagnoses Date/Ti [...] Additional history exists CKD PHOS USE SMARTSET 68504 06/03/2024 0210/2023, 11/06/2021, 09/12/2020, Additional history exists HbA1c 06/04/2024 12/03/2023, 07/26, 03/27/2023, Additional history exists Albumin/Creatinine Ratio 06/19/2024 024, 08/15/2022, 11/06/2021, Additional history exists Depression Monitoring 09/07/2024 09/08/2023 GFR 09/11/2024 03/14/2024, 02/25, 03/07/2024, Additional history exists TSH 02/25/2025 02/26/2024, 1006/2023, 09/24/2023, Additional history exists CKD HGB USE SMARTSET 49093 03/14/202503/14, 03/07/2024, 03/07/2024, Additional history exists DTap/Tdap [...] patient have Health Care Power of Cattle Inspector? Yes, not currently available * Full [...] p Communication Omar Lyle Adult Child [facility] re Agent Xi Lyle Adult Child Health Care Agent Care Teams Private Duty Rn Relationship Specialty Start Date End Date Sherry Maya DO [address] [place] [address] PCP - General Family Medicine 11/12/11 documented as of this encounter
--- OUTSIDE RECORDS SUMMARY | 2024-05-24 05:22 | External Medical Summary | Summary of Care ---
Author Name Unknown Organization [facility] Address [address] [facility] [place] [address] Phone [phone] Care Team Providers Care Manager Of Clinical Name Role Phone Sherry Maya DO Primary Care Provider + [phone] Reason for Visit * Reason Onset Date Comments Nurse Documentation 03/17/2024 Toño home are Encounter Details Date Type Department Care Team (Late st Contact Info) Description 03/17/2024 Telephone [facility] [address] [place] [address] Sherry Maya DO [address] [place] [address] Nurse Documentation ([facility]) Allergies Active Allergy Reactions Criticality Noted Date Comments Benzonatate 12/08/2016 choking Keyanna Pedraza Other (Please comment) High 04/10/20 09 Choking documented as of this encounter (statuses as of 03/17/2024) Medications ONETOUCH LANCETS MISCIndications:DM type 2, not at goal ([facility]) 3 Box Dosing Unit 1 04/17/20 15 Active Nitroglycerin 0.4 MG Sublingual Tablet Sublingual Place under the tongue every 5 minutes as needed. Up to 3 in 15 minutes. 25 Tab 11 04/17/20 15 Active Magnesium Oxide 400 MG CapsuleIndications:H eart failure, systolic, due to CAD ([facility]),Automatic implantable cardioverter-defibri llator in situ,Chronic ischemic heart disease,Ischemic cardiomyopathy Take 1 Cap by mouth daily. 30 Cap 5 03/16/20 17 Active Glucose Blood ([employer]TOUCH VERIO) STRP USE TO TEST BLOOD GLUCOSE 8 TIMES A DAY 800 Strip 3 03/18/20 19 Active Insulin Aspart 100 UNIT/ML Injection Solution Inject under the skin. FOR USE IN PUMP Active [employer] Verio Flex System w/Device Kit Use as [...] Active WalkerIndications:Os teomyelitis of foot, left, acute ([facility]),Diabetic polyneuropathy associated with diabetes mellitus due to underlying condition ([facility]),Ulcer of right foot with necrosis of muscle ([facility]),Right knee pain, unspecified chronicity,Heart failure, systolic, due to CAD ([facility]) Bariatric heavy duty walker- 2 wheels- please document patient's weight at 308 1 Each 02/08/20 Active DIURETIC TITRATION PLANIndications:Hear t failure, systolic, due to CAD ([facility]) If no improvement on day [...] below 100,DM type 2, not at goal ([facility]),Diabetic polyneuropathy associated with type 1 diabetes mellitus ([facility]),HTN, goal below 130/80,Abnormal electrocardiogram Take 1 Tablet [...] 24 Active Vitamin D (Ergocalciferol) 1.25 MG (57262 UT) Oral Capsule (Drisdol) TAKE ONE CAPSULE [...] as of this encounter (statuses as of 03/17/2024) Active Problems Problem Noted Date Diagnosed Date [...] (07/04/2019): Added automatically from request for surgery [id number] 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 [...] as of this encounter (statuses as of 03/17/2024) Resolved Problems Problem Noted Date Diagnosed Date [...] Silent myocardial infarction 03/23/2013 11/08/2018 Accelerate Clinical Trial*[id number] 01/24/2013 05/16/2015 Overview (01/24/2013): ACCELERATE STUDY. Project # [id number], BEARINGIZER: Ben Hoover MD. CRC: DEBORAH Back. SUMMARY: To test the hypothesis that Evacetrapib 130 mg, in comparison to placebo, reduces the risk of major adverse coronary events in high-risk vascular disease patients. CONTACTS: During normal business hours, contact study staff at ; after hours Marketing Mgr via the [facility] hospital band bias machine operator [phone]. 24-hour Global Study Helpline: [phone]. Lipid levels should not be ordered/obtained while [...] 250 mg, 2) gemfibrozil with a potent [id number]. NINA on CPAP 06/28/2012 01/31/2020 Overview (06/28/2012): [...] as of this encounter (statuses as of 03/17/2024) Immunizations Name Administration Dates Next Due COVID-19 [...] on file Are you (or your family) mraquez eless or worried that you might be [...] BFPROVIDERS: Dr. Kwame Parks FORM received from [facility] and FAXED documented in this encounter Plan of Treatment Upcoming Encounters Date Type Department Care Team (Late st Contact Info) Description 03/22/2024 6:00 AM EST Anticoagulation Centralized Clinical Pharmacy Services, Reneevirgen Wise [address] [place] [address] [place] [address] [facility], [address] [place] [address] 03/22/2024 2:30 PM EST Telemedicine [facility], [address] [place] [address] Carolee Manriquez PA-C [address] [place] [address] Edna Baum, Community Health Weapons Designer [address] [place] [address] 03/23/2024 7:10 AM EST Laboratory Lab Mobile Phlebotomy [facility] [address] [facility] [place] [address] [facility], [facility] Mobile Home Draw [address] [place] [address] 05/11/2024 2:00 PM EST Office Visit Infectious Disease [facility] [place] [address] [facility] [place] [address] Sherry Roy MD [address] [place] [address] 07/11/2024 9:50 AM EDT Office Visit [address] [place] [address] Sherry Maya, DO [address] [place] [address] Scheduled Procedures Name Priority Associated Diagnoses Date/Ti [...] Additional history exists CKD PHOS USE SMARTSET 30320 06/03/2024 0210/2023, 11/06/2021, 09/12/2020, Additional history exists HbA1c 06/04/2024 12/03/2023, 07/26, 03/27/2023, Additional history exists Albumin/Creatinine Ratio 06/19/202406/19/2 024, 08/15/2022, 11/06/2021, Additional history exists Depression Monitoring 09/07/2024 09/08/2023 GFR 09/11/2024 03/14/2024, 02/25, 03/07/2024, Additional history exists TSH 02/25/2025 02/26/2024, 06/2023, 09/24/2023, Additional history exists CKD HGB USE SMARTSET 55243 03/14/202503/14, 03/07/2024, 03/07/2024, Additional history exists DTap/Tdap [...] the patient have Health Care Power of Electronic Assembly? Yes, not currently available * Full Code [...] Communication Omar Lyle Adult Child [facility] re Agent [facility] Care Agent Care Teams Manager Of Clinical Relationship Specialty Start Date End Date Sherry Maya DO [address] [place], [place] [id number] PCP - General Family Medicine 11/12/11 documented as of this encounter
--- OUTSIDE RECORDS SUMMARY | 2024-05-24 05:22 | External Medical Summary | Summary of Care ---
Author Name Unknown Organization [facility] Address [address] [place] [address] Phone [phone] Care Team Providers Care Project Coach Name Role Phone David Maya DO Primary Care Provider + [phone] Reason for Referral * Evaluate & Treat - Unlimited Visits (Within 10 days (routine)) - Authorized Specialty Diagnoses / Procedures Referred By Magdy clark Referred To Contact HOME CARE / Home Care Diagnoses S/P BKA (below knee amputation) unilateral, left (HCC) David Maya DO [address] [place] [address] Phone: tel: fax: Referral ID Status Reason Start Date Expiration Date Visits Requested Visits Authorized [id number] Authorized Specialty Services Required 4 [phone] Question Answer Referral Priority Within 10 days (routine) Where should this appointment be scheduled? [facility] Comments Patient already established with you Your agency is request Certified Medicine Aide referral to assist patient with resources Reason for Visit * Reason Onset Date Comments Home Health 03/04/2024 Encounter Details Date Type Department Care Team (Late st Contact Info) Description 03/04/2024 Telephone [facility] [address] [facility] [place] [address] David Maya DO [address] [place] [facility] [address] Home Health Allergies Active Allergy Reactions Criticality Noted Date Comments Benzonatate 12/08/2016 choking Keyanna Pedraza Other (Please comment) High 04/10/20 09 Choking documented as of this encounter (statuses as of 03/16/2024) Medications ONETOUCH LANCETS MISCIndications:DM type 2, not at goal ([facility]) 3 Box Dosing Unit 1 04/17/20 15 Active Nitroglycerin 0.4 MG Sublingual Tablet Sublingual Place under the tongue every 5 minutes as needed. Up to 3 in 15 minutes. 25 Tab 11 04/17/20 15 Active Magnesium Oxide 400 MG CapsuleIndications:H eart failure, systolic, due to CAD ([facility]),Automatic implantable cardioverter-defibri llator in situ,Chronic ischemic heart disease,Ischemic cardiomyopathy Take 1 Cap by mouth daily. 30 Cap 5 03/16/20 17 Active Glucose Blood ([employer] VERIO) STRP USE TO TEST BLOOD GLUCOSE 8 TIMES A DAY 800 Strip 3 03/18/20 19 Active Insulin Aspart 100 UNIT/ML Injection Solution Inject under the skin. FOR USE IN PUMP Active [employer] Verio Flex System w/Device Kit Use as directed. 01/26 11/13 20 Active Diclofenac Sodium 1 % External Gel (Voltaren)Indication s:Hand arthritis Apply topically to affected area daily. Apply to hands 100 g 05/31/19 21 Active polyethylene glycol 3350 119 gram PO POWD Take 119 g by mouth daily as needed for Constipation. May use up to 2-3 times per day as needed. 08/10/19 21 Active BiPAP every night at bedtime. Active WalkerIndications:Os teomyelitis of foot, left, acute ([facility]),Diabetic polyneuropathy associated with diabetes mellitus due to underlying condition ([facility]),Ulcer of right foot with necrosis of muscle ([facility]),Right knee pain, unspecified chronicity,Heart failure, systolic, due to CAD ([facility]) Bariatric heavy duty walker- 2 wheels- please document patient's weight at 308 1 Each 02/08/20 21 Active DIURETIC TITRATION PLANIndications:Hear t failure, systolic, due to CAD ([facility]) If no improvement on day 3, [...] evening for Dizziness. 30 Tablet 1 05/30/19 Active Fluticasone Propionate 50 MCG/ACT Nasal SuspensionIndication s:Otalgia, right,Dysfunction of Eustachian tube, right,Chronic rhinitis Administer into each nostril 2 Sprays in the morning. Administer 2 Sprays into each nostril daily.. 9.9 mL 10 08/06/19 Active Additional Information Patient not taking.Reported on 03/03/2024 Mupirocin 2 % External Ointment (Bactroban) 03/23/20 Active Ferrous Sulfate 325 (65 Fe) MG Oral Tablet (Feosol)Indications: Other iron deficiency anemia Take 1 Tablet by mouth in the morning and 1 Tablet before bedtime. 60 Tablet 11 09/16/19 Active Levothyroxine Sodium 88 MCG Oral Tablet (Levoxyl)Indications :Hypothyroidism, unspecified type TAKE ONE TABLET BY MOUTH IN THE MORNING AT LEAST 30 MINS PRIOR TO BREAKFAST OR OTHER MEDS 100 Tablet 5 01/09/20 23 Active Ammonium Lactate 12 % [...] 24 Active Vitamin D (Ergocalciferol) 1.25 MG (63921 UT) Oral Capsule (Drisdol) TAKE ONE CAPSULE [...] as of this encounter (statuses as of 03/16/2024) Active Problems Problem Noted Date Diagnosed Date [...] (07/04/2019): Added automatically from request for surgery [id number] 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 [...] as of this encounter (statuses as of 03/16/2024) Resolved Problems Problem Noted Date Diagnosed Date [...] Silent myocardial infarction 03/23/2013 11/08/2018 Accelerate Clinical Trial*[id number] 01/24/2013 05/16/2015 Overview (01/24/2013): ACCELERATE STUDY. Project # [id number], LEAD WEB APPLICATION DEVELOPER: Ben Hoover MD. CRC: DEBORAH Back. SUMMARY: To test the hypothesis that Evacetrapib 130 mg, in comparison to placebo, reduces the risk of major adverse coronary events in high-risk vascular disease patients. CONTACTS: During normal business hours, contact study staff at ; after hours Joint Yarner via the [facility] hospital round corner cutter operator [phone]. 24-hour Global Study Helpline: [phone]. Lipid levels should not be ordered/obtained while this subject is in the Accelerate study. Lipids are being managed in a blinded fashion. If lipid levels are inadvertently obtained, it is important that test results are NOT provided to the patient, study doctor, documentation coordinator, or other study team members. Restricted meds while in the study: 1) niacin > 250 mg, 2) gemfibrozil with a potent [id number]. NINA on CPAP 06/28/2012 01/31/2020 Overview (06/28/2012): [...] as of this encounter (statuses as of 03/16/2024) Immunizations Name Administration Dates Next Due COVID-19 [...] Author Yes 01/08/2021 1:48 AM EDT Gaurav Rded RN documented as of this encounter Mental Status * Because of a physical, mental, or emotional condition, do you have serious difficulty concentrating, remembering, or making decisions? (5 years old or older) Answer Entry Date Author No 01/08/2021 1:48 AM EDT Gaurav Redd RN documented in this encounter Miscellaneous Notes * Addendum Note - David Maya DO - 03/16/2024 3:15 PM ESTAddended by: DAVID MAYA on: 03/16/2024 03:15 PM Modules accepted: Orders * Addendum Note - Judith Hays LPN - 03/15/2024 2:00 PM ESTAddended by: JUDITH HAYS on: 03/15/2024 02:00 PM Modules accepted: Orders * Telephone Encounter - Judith Hays LPN - 03/15/2024 1:56 PM EST Chart reviewed Power chair order done by Dr Parks on 02/29/24 Faxed DME order for power chair, demographics, note from 02/28 and insurance information to [facility] Will pend referral for nephrology social worker as requested by [facility] to PCP Pended for PCP approval and if your staff can fax referral to home health after approval as I will be out of my office on 03/16 [facility] Thank you * Telephone Encounter - Debbi Barnes OSA - 03/08/2024 3:29 PM EST Lori called from [facility] and stated that she will like for the Dr to send in a Rx Power wheel chair. Pt is non moved cause of his wound. They will need a copy of his insurance and Dem. Please fax order to [phone] * Telephone Encounter - David Maya DO - 03/04/2024 2:12 PM EST I am not sure what referral to place, can you send to case management and see? * Telephone Encounter - Lori Mcclain LPN - 03/04/2024 1:49 PM EST Ani calderón [facility] calling to request nephrology social worker referral to assist in getting mental health resources. documented in this encounter Plan of Treatment Upcoming Encounters Date Type Department Care Team (Late st Contact Info) Description 03/21/2024 7:10 AM EST Laboratory Lab Mobile Phlebotomy [facility] [address] [place] [address] [facility], [facility] Mobile Home Draw [address] [place] [address] 03/22/2024 6:00 AM EST Anticoagulation Centralized Clinical Pharmacy Services, Renee Wise [address] [place] [address] [place] [address] [facility], [address] [place] [address] 03/22/2024 2:30 PM EST Telemedicine [facility], [place] [address] [place] [address] Carolee Manriquez PA-C [address] [place] [address] Edna Baum, Community Health Whiskey Filterer [address] [place] [address] 05/11/2024 2:00 PM EST Office Visit Infectious Disease [facility] [place] [address] [place] [address] Sherry Roy MD [address] [place] [address] 07/11/2024 9:50 AM EDT [facility] [address] [place] [address] David Maya, DO [address] [place] [address] Scheduled Procedures Name Priority Associated Diagnoses Date/Ti me COLONOSCOPY FLEXIBLE PROXIMAL DIAGNOSTIC Recall History of colon polyps Scheduled Referrals Name Type Priority Associated Diagnoses Orde r Schedule HOME HEALTH REFERRAL OP Referral Within 10 days (routine) S/P BKA (below knee amputation) unilateral, left (HCC) Ordered: 03/16/2024 Health Maintenance Due Date Last Done Comments Cologuard 11/26/2008 Fecal Occult Blood Test 11/26/2008 Sigmoidoscopy 11/26/2008 Colonoscopy 06/01/2023 06/01/2020, 10/25, 04/03/2015 Colorectal Cancer Screening 06/01/2023 COVID-19 Vaccine ( season) 2023 05/15/2021, 05/15/2021, 10/04/2020, Additional history exists Influenza Vaccine (FLU shot) (#1) 2023 01/23/2023, 01/23/2023, 02/12/2022, Additional history exists CKD PHOS USE SMARTSET 71393 06/03/2024 02/0 10/2023, 11/06/2021, 09/12/2020, Additional history exists HbA1c 06/04/2024 12/03/2023, 07/26, 03/27/2023, Additional history exists Albumin/Creatinine Ratio 06/19/2024 024, 08/15/2022, 11/06/2021, Additional history exists Depression Monitoring 09/07/2024 09/08/2023 GFR 09/11/2024 03/14/2024, 02/25, 03/07/2024, Additional history exists TSH 02/25/2025 02/26/2024, 06/2023, 09/24/2023, Additional history exists CKD HGB USE SMARTSET 47049 03/14/202503/14, 03/07/2024, 03/07/2024, Additional history exists DTap/Tdap [...] the patient have Health Care Power of Steeplechase Jockey? Yes, not currently available * Full Code [...] Relationshi p Communication Omar Lyle Adult Child [facility] [place] re Agent Xi Lyle Adult Child Health Care Agent Care Teams Project Coach Relationship Specialty Start Date End Date David Maya DO [address] [place] [address] PCP - General Family Medicine 11/12/11 documented as of this encounter
--- OUTSIDE RECORDS SUMMARY | 2024-05-24 05:22 | External Medical Summary | Summary of Care ---
Author Name Unknown Organization [facility] Address [address] [place] [address] Phone [phone] Care Team Providers Care Power Transformer Inspector Name Role Phone David Maya DO Primary Care Provider + [phone] Reason for Referral * Evaluate & Treat - Unlimited Visits (Within 10 days (routine)) - Authorized Specialty Diagnoses / Procedures Referred By Magdy clark Referred To Contact HOME CARE / Home Care Diagnoses S/P BKA (below knee amputation) unilateral, left (HCC) David Maya DO [address] [place] [address] Phone: tel: fax: Referral ID Status Reason Start Date Expiration Date Visits Requested Visits Authorized [id number] Authorized Specialty Services Required 4 999 999 Question Answer Referral Priority Within 10 days (routine) Where should this appointment be scheduled? [facility] Comments Patient already established with you Your agency is request Used Building [employer] Yard Worker referral to assist patient with resources Reason for Visit * Reason Onset Date Comments Home Health 03/04/2024 Encounter Details Date Type Department Care Team (Late st Contact Info) Description 03/04/2024 Telephone [facility] [address] [place] [facility] [place] [address] David Maya DO [address] [place] [address] Home Health Allergies Active Allergy Reactions Criticality Noted Date Comments Benzonatate 12/08/2016 choking Keyanna Pedraza Other (Please comment) High 04/10/20 09 Choking documented as of this encounter (statuses as of 03/16/2024) Medications ONETOUCH LANCETS MISCIndications:DM type 2, not at goal ([facility]) 3 Box Dosing Unit 1 04/17/20 15 Active Nitroglycerin 0.4 MG Sublingual Tablet Sublingual Place under the tongue every 5 minutes as needed. Up to 3 in 15 minutes. 25 Tab 11 04/17/20 15 Active Magnesium Oxide 400 MG CapsuleIndications:H eart failure, systolic, due to CAD ([facility]),Automatic implantable cardioverter-defibri llator in situ,Chronic ischemic heart disease,Ischemic cardiomyopathy Take 1 Cap by mouth daily. 30 Cap 5 03/16/20 17 Active Glucose Blood (HylioSoft VERIO) STRP USE TO TEST BLOOD GLUCOSE 8 TIMES A DAY 800 Strip 3 03/18/20 19 Active Insulin Aspart 100 UNIT/ML Injection Solution Inject under the skin. FOR USE IN PUMP Active NeoChord Verio Flex System w/Device Kit Use as [...] Active WalkerIndications:Os teomyelitis of foot, left, acute ([facility]),Diabetic polyneuropathy associated with diabetes mellitus due to underlying condition ([facility]),Ulcer of right foot with necrosis of muscle ([facility]),Right knee pain, unspecified chronicity,Heart failure, systolic, due to CAD ([facility]) Bariatric heavy duty walker- 2 wheels- please document patient's weight at 308 1 Each 02/08/20 21 Active DIURETIC TITRATION PLANIndications:Hear t failure, systolic, due to CAD ([facility]) If no improvement on day [...] 24 Active Vitamin D (Ergocalciferol) 1.25 MG (25527 UT) Oral Capsule (Drisdol) TAKE ONE CAPSULE [...] (07/04/2019): Added automatically from request for surgery [id number] 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 [...] Silent myocardial infarction 03/23/2013 11/08/2018 Accelerate Clinical Trial*[id number] 01/24/2013 05/16/2015 Overview (01/24/2013): ACCELERATE STUDY. Project # [id number], MONOGRAM MAKER: Ben Hoover MD. CRC: DEBORAH Back. SUMMARY: To test the hypothesis that Evacetrapib 130 mg, in comparison to placebo, reduces the risk of major adverse coronary events in high-risk vascular disease patients. CONTACTS: During normal business hours, contact study staff at ; after hours Business Taxes Specialist via the [facility] lithograph press operator [phone]. 24-hour Global Study Helpline: [phone]. Lipid levels should not be ordered/obtained while this subject is in the Accelerate study. Lipids are being managed in a blinded fashion. If lipid levels are inadvertently obtained, it is important that test results are NOT provided to the patient, study doctor, service line coordinator, or other study team members. Restricted meds while in the study: 1) niacin > 250 mg, 2) gemfibrozil with a potent [id number]. NINA on CPAP 06/28/2012 01/31/2020 Overview (06/28/2012): [...] Assessment Author No 01/08/2021 1:48 AM EDT Grzegorz Redd RN * Do you have serious [...] note from 02/28 and insurance information to [facility] Will pend referral for social service director as requested by [facility] to PCP Pended for PCP approval and if your staff can fax referral to home health after approval as I will be out of my office on 03/16 [facility] Thank you * Telephone Encounter - Debbi Barnes OSA - 03/08/2024 3:29 PM EST Lori called from [facility] and stated that she will like for the to send in a Rx Power wheel chair. Pt is non moved cause of his wound. They will need a copy of his insurance and Dem. Please fax order to [phone] * Telephone Encounter - David Maya DO - 03/04/2024 2:12 PM EST I am not sure what referral to place, can you send to case management and see? * Telephone Encounter - Lori Mcclain LPN - 03/04/2024 1:49 PM EST Ani calderón [facility] calling to request social service director referral to assist in getting mental health resources. documented in this encounter Plan of Treatment Upcoming Encounters Date Type Department Care Team (Late st Contact Info) Description 03/21/2024 7:10 AM EST Laboratory Lab Mobile Phlebotomy [facility] [address] [place] [address] [facility], Gml Mobile Home Draw [address] [place] [address] 03/22/2024 6:00 AM EST Anticoagulation [facility] Clinical [facility] Services, Renee Wise [address] [place] [address] [place] [address] [facility], [address] [place] [address] 03/22/2024 2:30 PM EST Telemedicine [facility], [place] [address] [place] [address] Carolee Manriquez PA-C [address] [place] [address] Edna Baum, Community Health Resin Maker [address] [place] [address] 05/11/2024 2:00 PM EST Office Visit Infectious Disease [facility] [place] [address] [place] [address] Sherry Roy MD [address] [place] [address] 07/11/2024 9:50 AM EDT [facility] [address] [place] [phone] David Maya, DO [address] [place] [address] Scheduled Procedures Name Priority Associated Diagnoses Date/Ti [...] Additional history exists CKD PHOS USE SMARTSET 14867 06/03/2024 02/0 10/2023, 11/06/2021, 09/12/2020, Additional history exists HbA1c 06/04/2024 12/03/2023, 07/26, 03/27/2023, Additional history exists Albumin/Creatinine Ratio 06/19/2024 024, 08/15/2022, 11/06/2021, Additional history exists Depression Monitoring 09/07/2024 09/08/2023 GFR 09/11/2024 03/14/2024, 02/25, 03/07/2024, Additional history exists TSH 02/25/2025 02/26/2024, 06/2023, 09/24/2023, Additional history exists CKD HGB USE SMARTSET 02015 03/14/202503/14, 03/07/2024, 03/07/2024, Additional history exists DTap/Tdap [...] the patient have Health Care Power of Radiology Administrator? Yes, not currently available * Full Code [...] Relationshi p Communication Omar Lyle Adult Child [facility] [place] re Agent Xi Lyle Adult Child Health Care Agent Care Teams Power Transformer Inspector Relationship Specialty Start Date End Date David Maya DO [address], [place] [phone] PCP - General Family Medicine 11/12/11 documented as of this encounter
--- OUTSIDE RECORDS SUMMARY | 2024-05-24 05:22 | External Medical Summary | Summary of Care ---
Author Name Unknown Organization [facility] Address [address] [facility] [place] [address] Phone [phone] Care Team Providers Care Management Consulting Name Role Phone Sherry Maya DO Primary Care Provider + [phone] Reason for Visit * Reason Onset Date Comments Order Request 03/14/2024 Encounter Details Date Type Department Care Team (Late st Contact Info) Description 03/14/2024 Telephone [facility] [address] [place] [address] Sherry Maya DO [address] [place] [address] Order Request Allergies Active Allergy Reactions Criticality Noted Date Comments Benzonatate 12/08/2016 choking Keyanna Pedraza Other (Please comment) High 04/10/20 09 Choking documented as of this encounter (statuses as of 03/17/2024) Medications ONETOUCH LANCETS MISCIndications:DM type 2, not at goal ([facility]) 3 Box Dosing Unit 1 04/17/20 15 Active Nitroglycerin 0.4 MG Sublingual Tablet Sublingual Place under the tongue every 5 minutes as needed. Up to 3 in 15 minutes. 25 Tab 11 04/17/20 15 Active Magnesium Oxide 400 MG CapsuleIndications:H eart failure, systolic, due to CAD ([facility]),Automatic implantable cardioverter-defibri llator in situ,Chronic ischemic heart disease,Ischemic cardiomyopathy Take 1 Cap by mouth daily. 30 Cap 5 03/16/20 17 Active Glucose Blood (Global RockstarTOUCH VERIO) STRP USE TO TEST BLOOD GLUCOSE [...] diabetes mellitus due to underlying condition ([facility]),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),Right knee pain, unspecified chronicity,Heart failure, systolic, due to CAD ([facility]) Bariatric heavy duty walker- 2 wheels- please document patient's weight at 308 1 Each 02/08/20 Active DIURETIC TITRATION PLANIndications:Hear t failure, systolic, due to CAD ([facility]) If no improvement on day 3, contact [...] 24 Active Vitamin D (Ergocalciferol) 1.25 MG (49979 UT) Oral Capsule (Drisdol) TAKE ONE CAPSULE [...] (07/04/2019): Added automatically from request for surgery [id number] 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 Project # [id number], APPLIANCE SERVICE TECHNICIAN: Ben Hoover MD. CRC: DEBORAH Back. SUMMARY: To test the hypothesis that Evacetrapib 130 mg, in comparison to placebo, reduces the risk of major adverse coronary events in high-risk vascular disease patients. CONTACTS: During normal business hours, contact study staff at ; after hours Test Preparation Tutor via the [facility] [place] [facility] light oil operator [phone]. 24-hour Global Study Helpline: [phone]. Lipid levels should not be ordered/obtained while this subject is in the Accelerate study. Lipids are being managed in a blinded fashion. If lipid levels are inadvertently obtained, it is important that test results are NOT provided to the patient, study doctor, health safety coordinator, or other study team members. Restricted meds while in the study: 1) niacin > 250 mg, 2) gemfibrozil with a potent [id number]. NINA on CPAP 06/28/2012 01/31/2020 Overview (06/28/2012): [...] encounter Miscellaneous Notes * Telephone Encounter - Nieves Baum LPN [...] for this patient. Name of Requesting Provider: [facility] Order Requested: [facility] Diagnosis/Reason for Request: pt has right wound with wound vac and a left prosthetic If order request is for Mammogram: Is the patient having any breast symptoms? N/A Is there a chance of ? N/A Has the patient had any breast problems in the past? NA What location AND department does the patient wish to have their order completed at? [facility] [employer] [address] [place] [address] Fax Number, if applicable: [phone] Please call Lori back once placed so she can f/u with [facility]. Thank you If the caller is not a current patient, please advise the patient to call their current PCP to havethe order's prior to being seen in our office. The patient was informed that our providers would not order anything (medication, labs, etc.) prior to being seen. documented in this encounter Plan of Treatment Upcoming Encounters Date Type Department Care Team ([facility] st Contact Info) Description 03/22/2024 6:00 AM EST Anticoagulation Centralized Clinical Pharmacy Services, Renee Wise [address] [place] [address] [place] [address] [place] [address] 03/22/2024 2:30 PM EST Telemedicine [facility], [place] [address] [place] [address] Carolee Manriquez PA-C [address] [place] [address] Edna Baum, Community Health Low Raw Sugar Cutter [address] [place] [address] 03/23/2024 7:10 AM EST Laboratory Lab Mobile Phlebotomy [facility] [address] [facility] [place] [address] Mv[facility], Gml Mobile Home Draw [address] [facility] [place] [address] 05/11/2024 2:00 PM EST Office Visit Infectious Disease [facility] [address] [facility] [place] [address] Sherry Roy MD [address] [place] [address] 07/11/2024 9:50 AM EDT Office Visit [facility] [address] [place] [phone] Sherry Maya, [address] [place] [address] Scheduled Procedures Name Priority Associated Diagnoses Date/Ti [...] Additional history exists CKD PHOS USE SMARTSET 38229 06/03/2024 02/0 10/2023, 11/06/2021, 09/12/2020, Additional history exists HbA1c 06/04/2024 12/03/2023, 07/26, 03/27/2023, Additional history exists Albumin/Creatinine Ratio 06/19/2024 024, 08/15/2022, 11/06/2021, Additional history exists Depression Monitoring 09/07/2024 09/08/2023 GFR 09/11/2024 03/14/2024, 02/25, 03/07/2024, Additional history exists TSH 02/25/2025 02/26/2024, 06/2023, 09/24/2023, Additional history exists CKD HGB USE SMARTSET 68304 03/14/202503/14, 03/07/2024, 03/07/2024, Additional history exists DTap/Tdap [...] the patient have Health Care Power of Beauty Artist? Yes, not currently available * Full Code [...] Relationshi p Communication Omar Lyle Adult Child [facility] [place] re Agent Xi Lyle Adult Child Health Care Agent Care Teams Management Consulting Relationship Specialty Start Date End Date Sherry Maya DO [address] [place] [address] PCP - General Family Medicine 11/12/11 documented as of this encounter
--- OUTSIDE RECORDS SUMMARY | 2024-05-24 05:22 | External Medical Summary | Summary of Care ---
Author Name Unknown Organization [facility] Address [address] [facility] [place] [address] Phone [phone] Care Team Providers Care Sugar Mixer Name Role Phone Sherry Maya DO Primary Care Provider + [phone] Reason for Visit * Reason Onset Date Comments Order Request 03/14/2024 Encounter Details Date Type Department Care Team (Late st Contact Info) Description 03/14/2024 Telephone [facility] [address] [place] [address] Sherry Maya DO [address] [place] [address] Order Request Allergies Active Allergy [...] Cap 5 03/16/20 17 Active Glucose Blood (TVtripTOUCH VERIO) STRP USE TO TEST BLOOD GLUCOSE [...] 24 Active Vitamin D (Ergocalciferol) 1.25 MG (87376 UT) Oral Capsule (Drisdol) TAKE ONE CAPSULE [...] (07/04/2019): Added automatically from request for surgery [id number] 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 Project # [id number], METHODS EXAMINER: Ben Hoover MD. CRC: DEBORAH Back. SUMMARY: To test the hypothesis that Evacetrapib 130 mg, in comparison to placebo, reduces the risk of major adverse coronary events in high-risk vascular disease patients. CONTACTS: During normal business hours, contact study staff at ; after hours Solderer Assembly Repair via the [facility] power digger operator [phone]. 24-hour Global Study Helpline: [phone]. Lipid levels should not be ordered/obtained while this subject is in the Accelerate study. Lipids are being managed in a blinded fashion. If lipid levels are inadvertently obtained, it is important that test results are NOT provided to the patient, study doctor, import export coordinator, or other study team members. Restricted meds while in the study: 1) niacin > 250 mg, 2) gemfibrozil with a potent [id number]. NINA on CPAP 06/28/2012 01/31/2020 Overview (06/28/2012): [...] Author Yes 01/24/2021 2:44 PM EDT John Bruhs RN * Do you have difficulty dressing [...] encounter Miscellaneous Notes * Telephone Encounter - Kopinski, Sherry L, DO - 03/17/2024 1:59 PM EST I wrote for this on the bed, does he need a different order or something additional * Telephone Encounter - Ladonna Haynes OSA - 03/14/2024 1:00 PM EST An order was requested for this patient. Name of Requesting Provider: Slater Clyde Order Requested: [facility] bed Diagnosis/Reason for Request: pt has right wound with wound vac and a left prosthetic If order request is for Mammogram: Is the patient having any breast symptoms? N/A Is there a chance of ? N/A Has the patient had any breast problems in the past? NA What location AND department does the patient wish to have their order completed at? [facility] [address] [place] [address] Fax Number, if applicable: [phone] Please call Lori back once placed so she can f/u with [employer] [place]. Thank you If the caller is not [...] Centralized Clinical Pharmacy Services, Renee Wise [address] [place] [address] [place] [address] [place] [address] 03/22/2024 2:30 PM EST Telemedicine [facility], [address] [address] GarrettCarolee Head PA-C [address] [place] [address] Edna Baum, Community Health Bench Shear Operator [address] [place] [address] 03/23/2024 7:10 AM EST Laboratory Lab Mobile Phlebotomy [facility] [address] [place] [address] Mvmg, Gml Mobile Home Draw [address] [place] [address] 05/11/2024 2:00 PM EST Office Visit Infectious Disease [facility] [place] [address] [place] [address] Sherry Roy MD [address] [place] [address] 07/11/2024 9:50 AM EDT Office Visit [facility] [address] [place] [phone] Sherry Maya, [address] [place] [address] Scheduled Procedures Name Priority Associated Diagnoses Date/Ti [...] Additional history exists CKD PHOS USE SMARTSET 18733 06/03/2024 02/0 10/2023, 11/06/2021, 09/12/2020, Additional history exists HbA1c 06/04/2024 12/03/2023, 07/26, 03/27/2023, Additional history exists Albumin/Creatinine Ratio 06/19/2024 024, 08/15/2022, 11/06/2021, Additional history exists Depression Monitoring 09/07/2024 09/08/2023 GFR 09/11/2024 03/14/2024, 02/25, 03/07/2024, Additional history exists TSH 02/25/2025 02/26/2024, 06/2023, 09/24/2023, Additional history exists CKD HGB USE SMARTSET 40552 03/14/202503/14, 03/07/2024, 03/07/2024, Additional history exists DTap/Tdap [...] the patient have Health Care Power of Semi Automatic Sewing Machine Operator? Yes, not currently available * Full [...] Communication Omar Lyle Adult Child [facility] re Agent [facility] Care Agent Care Teams Sugar Mixer Relationship Specialty Start Date End Date Sherry Maya DO [address] [facility] [place] [phone] PCP - General Family Medicine 11/12/11 documented as of this encounter
--- OUTSIDE RECORDS SUMMARY | 2024-05-24 05:23 | External Medical Summary | Summary of Care ---
Author Name Unknown Organization [facility] Address [address] [facility] [place] [address] Phone [phone] Care Team Providers Care Photoengraver Apprentice Name Role Phone Sherry Maya DO Primary Care Provider + [phone] Reason for Visit * Reason Onset Date Comments Home Health 03/04/2024 Encounter Details Date Type Department Care Team (Late st Contact Info) Description 03/04/2024 Telephone [facility] [address] [place] [address] Sherry Maya DO [address] [place] [address] Home Health Allergies Active Allergy Reactions Criticality Noted Date Comments Benzonatate 12/08/2016 choking Keyanna Pedraza Other (Please comment) High 04/10/20 09 Choking documented as of this encounter (statuses as of 03/15/2024) Medications ONETOUCH LANCETS MISCIndications:DM type 2, not at goal ([facility]) 3 Box Dosing Unit 1 04/17/20 15 Active Nitroglycerin 0.4 MG Sublingual Tablet Sublingual Place under the tongue every 5 minutes as needed. Up to 3 in 15 minutes. 25 Tab 11 04/17/20 15 Active Magnesium Oxide 400 MG CapsuleIndications:H eart failure, systolic, due to CAD ([facility]),Automatic implantable cardioverter-defibri llator in situ,Chronic ischemic heart disease,Ischemic cardiomyopathy Take 1 Cap by mouth daily. 30 Cap 5 03/16/20 17 Active Glucose Blood (CoullTOUCH VERIO) STRP USE TO TEST BLOOD GLUCOSE [...] with diabetes mellitus due to underlying condition (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) Bariatric heavy duty walker- 2 wheels- please document patient's weight at 308 1 Each 02/08/20 Active DIURETIC TITRATION PLANIndications:Hear t failure, systolic, due to CAD ([facility]) If no improvement on day [...] 24 Active Vitamin D (Ergocalciferol) 1.25 MG (43606 UT) Oral Capsule (Drisdol) TAKE ONE CAPSULE [...] as of this encounter (statuses as of 03/15/2024) Active Problems Problem Noted Date Diagnosed Date [...] (07/04/2019): Added automatically from request for surgery [id number] 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 [...] as of this encounter (statuses as of 03/15/2024) Resolved Problems Problem Noted Date Diagnosed Date [...] Silent myocardial infarction 03/23/2013 11/08/2018 Accelerate Clinical Trial*[id number] 01/24/2013 05/16/2015 Overview (01/24/2013): ACCELERATE STUDY. Project # [id number], CERTIFIED MEDICAL TECHNICIAN ASSISTANT: Ben Hoover MD. CRC: DEBORAH aBck. SUMMARY: To test the hypothesis that Evacetrapib 130 mg, in comparison to placebo, reduces the risk of major adverse coronary events in high-risk vascular disease patients. CONTACTS: During normal business hours, contact study staff at ; after hours Highway Worker via the [facility] hospital furnace operator [phone]. 24-hour Global Study Helpline: [phone]. Lipid levels should not be ordered/obtained while this subject is in the Accelerate study. Lipids are being managed in a blinded fashion. If lipid levels are inadvertently obtained, it is important that test results are NOT provided to the patient, study doctor, ambulatory care coordinator, or other study team members. Restricted meds while in the study: 1) niacin > 250 mg, 2) gemfibrozil with a potent [id number]. NINA on CPAP 06/28/2012 01/31/2020 Overview (06/28/2012): [...] as of this encounter (statuses as of 03/15/2024) Immunizations Name Administration Dates Next Due COVID-19 [...] of Assessment Author Yes 01/08/2021 1:48 AM AJXT Gaurav Redd RN documented as of this encounter Mental Status * Because of a physical, mental, or emotional condition, do you have serious difficulty concentrating, remembering, or making decisions? (5 years old or older) Answer Entry Date Author No 01/08/2021 1:48 AM EDT Gaurav Redd RN documented in this encounter Miscellaneous Notes * Addendum Note - Judith Hays LPN - 03/15/2024 2:00 PM ESTAddended by: JUDITH HAYS on: 03/15/2024 02:00 PM Modules accepted: Orders * Telephone Encounter - Judith Hays LPN - 03/15/2024 1:56 PM EST Chart reviewed Power chair order done by Dr Parks on 02/29/24 Faxed DME order for power chair, demographics, note from 02/28 and insurance information to [facility] Will pend referral for psych social worker as requested by [facility] to PCP Pended for PCP approval and if your staff can fax referral to home health after approval as I will be out of my office on 03/16 [facility] Thank you * Telephone Encounter - Debbi Barnes OSA - 03/08/2024 3:29 PM EST Lori called from [facility] service and stated that she will like for the Dr to send in a Rx Power wheel chair. Pt is non moved cause of his wound. They will need a copy of his insurance and Dem. Please fax order to [phone] * Telephone Encounter - Sherry Maya DO - 03/04/2024 2:12 PM EST I am not sure what referral to place, can you send to case management and see? * Telephone Encounter - Lori Mcclain LPN - 03/04/2024 1:49 PM EST Ani calderón [facility] calling to request psych social worker referral to assist in getting mental health resources. 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 control technician current use of anticoagulant therapy* 03/22/2024 6:00 AM EST Anticoagulation Centralized Clinical Pharmacy Services, [address] [place] [address] [place] [address] 03/22/2024 2:30 PM EST Telemedicine [facility] [address] [place] [address] Carolee Manriquez PA-C [address] [place] [address] Edna Baum, Community Health Residence Supervisor [address] [place] [address] 03/23/2024 7:10 AM EST Laboratory Lab Mobile Phlebotomy [facility] [address] [facility] [place] [address] [facility], Gml Mobile Home Draw [address] [place] [address] 05/11/2024 2:00 PM EST Office Visit Infectious Disease Regina Villarreal [place] [address] [address] Sherry Roy MD [address] [facility] [address] 07/11/2024 9:50 AM EDT Office Visit [facility] [address] [place] [address] Sherry Maya, DO [address] [place] [address] Scheduled Procedures Name Priority Associated Diagnoses Date/Ti [...] Additional history exists CKD PHOS USE SMARTSET 14504 06/03/2024 02/10/2023, 11/06/2021, 09/12/2020, Additional history exists HbA1c 06/04/2024 12/03/2023, 07/26, 03/27/2023, Additional history exists Albumin/Creatinine Ratio 06/19/2024 024, 08/15/2022, 11/06/2021, Additional history exists GFR 09/04/2024 03/07/2024, 02/25, 02/28/2024, Additional history exists Depression Monitoring 09/07/2024 09/08/2023 TSH 02/25/2025 02/26/2024, 100 06/2023, 09/24/2023, Additional history exists CKD HGB USE SMARTSET 46466 03/14/202503/14, 03/07/2024, 03/07/2024, Additional history exists DTap/Tdap [...] the patient have Health Care Power of Trading Assistant? Yes, not currently available * Full Code [...] Agent Relationshi p Communication Omar Ontiverosrett Adult [facility] re Agent [facility] Care Agent Care Teams Photoengraver Apprentice Relationship Specialty Start Date End Date Sherry Maya DO [address] [place] [address] PCP - General Family Medicine 11/12/11 documented as of this encounter
--- OUTSIDE RECORDS SUMMARY | 2024-05-24 05:23 | External Medical Summary | Summary of Care ---
Author Name Unknown Organization [facility] Address [address] [facility] [place] [address] Phone [phone] Care Team Providers Care Development Team Lead Name Role Phone Sherry Maya DO Primary Care Provider + [phone] Encounter Details Date Type Department Care Team (Late st Contact Info) Description 12/15/2023 Telephone [facility] [address] [place] [address] Abbie Beltran PA-C [address] [place] [address] Allergies Active Allergy Reactions Criticality Noted Date [...] 04/17/20 15 Active Magnesium Oxide 400 MG CapsuleIndications:He art failure, systolic, due to CAD (HCC),Automatic implantable cardioverter-defibril lator in situ,Chronic ischemic heart disease,Ischemic cardiomyopathy Take 1 Cap by mouth daily. 30 Cap 5 03/16/20 Active Glucose Blood (ONETOUCH VERIO) STRP USE TO TEST BLOOD GLUCOSE 8 TIMES A DAY 800 Strip 3 03/18/20 Active Insulin Aspart 100 UNIT/ML Injection Solution Inject under the skin. FOR USE IN PUMP Active OneTouch Verio Flex System w/Device Kit Use as directed. 02/21/20 Active Diclofenac Sodium 1 % External Gel (Voltaren)Indications :Hand arthritis Apply topically to affected area daily. Apply to hands 100 g 05/31/19 Active polyethylene glycol 3350 119 gram PO POWD Take 119 g by mouth daily as needed for Constipation. May use up to 2-3 times per day as needed. 08/10/19 Active BiPAP every night at bedtime. Active WalkerIndications:Ost eomyelitis of foot, left, acute (HCC),Diabetic polyneuropathy associated with diabetes mellitus due to underlying condition ([facility]),Ulcer of right foot with necrosis of muscle ([facility]),Right knee pain, unspecified chronicity,Heart failure, systolic, due to CAD ([facility]) Bariatric heavy duty walker- 2 wheels- please document patient's weight at 308 1 Each 02/08/20 Active DIURETIC TITRATION PLANIndications:Heart failure, systolic, due to CAD ([facility]) If no improvement on day 3, [...] (90 Base) MCG/ACT Inhalation Aerosol Powder Breath ActivatedIndications: Asthma in remission Inhale 2 Puffs by mouth 4 times a day as needed for Wheezing. 3 Each 3 04/12/20 Active Aspirin 81 MG Oral Tablet ChewableIndications:D yslipidemia, goal LDL below 100,DM type 2, not [...] 22 Active Fluticasone Propionate 50 MCG/ACT Nasal SuspensionIndications :Otalgia, right,Dysfunction of Eustachian tube, right,Chronic rhinitis Administer into each nostril 2 Sprays in the morning. Administer 2 Sprays into each nostril daily.. 9.9 mL 10 08/06/19 22 Active Additional Information Patient not taking.Reported on 03/03/2024 Mupirocin 2 % External Ointment (Bactroban) 03/23/20 22 Active Ferrous Sulfate 325 (65 Fe) MG Oral Tablet (Feosol)Indications:O ther iron deficiency anemia Take 1 Tablet by mouth in the morning and 1 Tablet before bedtime. 60 Tablet 09/16/19 23 Active Levothyroxine Sodium 88 MCG Oral Tablet (Levoxyl)Indications: Hypothyroidism, unspecified type TAKE ONE TABLET BY MOUTH IN THE MORNING AT LEAST 30 MINS PRIOR TO BREAKFAST OR OTHER MEDS 100 Tablet 01/09/20 23 Active Ammonium Lactate 12 % External Lotion (Lac-Hydrin)Indicatio ns:S/P BKA (below knee amputation) unilateral, left (HCC) Apply topically to affected area as needed for Dry Skin. Apply to rash on legs 400 g 06/03/19 24 Active Omeprazole 20 MG Oral Capsule Delayed Release (PriLOSEC)Indications :Heart burn Take 1 Capsule by mouth in the morning. 100 Capsule 1 06/03/19 24 Active Triamcinolone Acetonide 0.1 % External Lotion (Aristocort)Indicatio ns:Other eczema Apply topically to affected area 2 times a day. To dry skin on the lower legs and stump. Avoid on open wounds 60 mL 5 06/17/19 24 Active Atorvastatin Calcium 80 MG Oral Tablet (Lipitor)Indications: Dyslipidemia, goal LDL below 100 Take 1 Tablet [...] 24 Active Torsemide 20 MG Oral Tablet (Demadex)Indications: Heart failure, systolic, due to CAD (HCC),Chronic diastolic heart failure (HCC),Paroxysmal atrial fibrillation (HCC) Taking 40 mg in morning and 20 mg in afternoon 270 Tablet 3 11/04/19 24 Active Empagliflozin 10 MG Oral Tablet (Jardiance) Take 1 Tablet by mouth in the morning. 90 Tablet 3 11/05/19 24 Active Hyoscyamine Sulfate 0.125 MG Oral Tablet (Levsin)Indications:D iarrhea, unspecified type Take 1 Tablet by mouth every 4 hours as needed for Cramping. for abdominal pain 40 Tablet 2 11/30/19 24 Active documented as of this encounter [...] (07/04/2019): Added automatically from request for surgery [id number] 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 [...] Silent myocardial infarction 03/23/2013 11/08/2018 Accelerate Clinical Trial*[id number] 01/24/2013 05/16/2015 Overview (01/24/2013): ACCELERATE STUDY. Project # [id number], ANCHOR TACK PULLER: Ben Hoover MD. CRC: DEBORAH Back. SUMMARY: To test the hypothesis that Evacetrapib 130 mg, in comparison to placebo, reduces the risk of major adverse coronary events in high-risk vascular disease patients. CONTACTS: During normal business hours, contact study staff at ; after hours Supervisor Line Department via the [facility] hospital motor grader operator [phone]. 24-hour Global Study Helpline: [phone]. Lipid levels should not be ordered/obtained while this subject is in the Accelerate study. Lipids are being managed in a blinded fashion. If lipid levels are inadvertently obtained, it is important that test results are NOT provided to the patient, study doctor, rehabilitation coordinator, or other study team members. Restricted meds while in the study: 1) niacin > 250 mg, 2) gemfibrozil with a potent [id number]. NINA on CPAP 06/28/2012 01/31/2020 Overview (06/28/2012): [...] encounter Miscellaneous Notes * Telephone Encounter - Abbie Beltran PA-C - 12/15/2023 9:45 AM EDT Pt was recently in patient at [facility] We do not have that note They apparently took him off coumadin as he was on doxy Has mobile draw tomorrow Needs to know about restart now that he is done with doxy Abbie Beltran PA-C 12/15/2023 9:45 AM documented in this encounter Plan of Treatment Upcoming Encounters Date Type Department Care Team (Late st Contact Info) Description 03/22/2024 6:00 AM EST Anticoagulation Centralized Clinical Pharmacy Services, Renee Wise [address] [place] [address] [place] [address] [place] [address] 03/22/2024 2:30 PM EST Telemedicine [facility] at Home, [place] [address] [place] [address] Carolee Manriquez PA-C [address] [place] [address] Edna Baum, Community Health Assembly And Packing Supervisor [address] [place] [address] 03/23/2024 7:10 AM EST Laboratory Lab Mobile Phlebotomy [facility] [address] [facility] [place] [address] M[facility], Gml Mobile Home Draw [address] [facility] [place] [address] 05/11/2024 2:00 PM EST Office Visit Infectious Disease [facility] [place] [address] [facility] [place] [address] Sherry Roy MD [address] [place] [address] 07/11/2024 9:50 AM EDT Office Visit [facility] [address] [place] [address] Sherry Maya, [address] [place] [address] Scheduled Procedures Name Priority Associated Diagnoses Date/Ti [...] Additional history exists CKD PHOS USE SMARTSET 88853 06/03/2024 02/10/2023, 11/06/2021, 09/12/2020, Additional history exists HbA1c 06/04/2024 12/03/2023, 07/26, 03/27/2023, Additional history exists Albumin/Creatinine Ratio 06/19/2024 024, 08/15/2022, 11/06/2021, Additional history exists GFR 09/04/2024 03/07/2024, 02/25, 02/28/2024, Additional history exists Depression Monitoring 09/07/2024 09/08/2023 TSH 02/25/2025 02/26/2024, 1006/2023, 09/24/2023, Additional history exists CKD HGB USE SMARTSET 11696 03/14/202503/14, 03/07/2024, 03/07/2024, Additional history exists DTap/Tdap [...] the patient have Health Care Power of Real Estate Acquisition Analyst? Yes, not currently available * Full [...] File Name Relationship Healthcare Agent [facility] Omar Lyle Adult Child [facility] re Agent Xi Lyle Adult Child Health Care Agent Care Teams Development Team Lead Relationship Specialty Start Date End Date Sherry Maya DO [address] [place] [address] PCP - General Family Medicine 11/12/11 documented as of this encounter
--- OUTSIDE RECORDS SUMMARY | 2024-05-24 05:23 | External Medical Summary | Summary of Care ---
Author Name Unknown Organization [facility] Address [address] [facility] [place] [address] Phone [phone] Care Team Providers Care Video Systems Engineer Name Role Phone Sherry Maya DO Primary Care Provider + [phone] Encounter Details Date Type Department Care Team (Late st Contact Info) Description 03/16/2024 Orders Only [place] [address] [place] [address] Sherry Maya DO [address] [place] [address] Allergies Active Allergy Reactions Criticality [...] below 100,DM type 2, not at goal ([facility]),Diabetic polyneuropathy associated with type 1 diabetes mellitus [...] 24 Active Vitamin D (Ergocalciferol) 1.25 MG (14199 UT) Oral Capsule (Drisdol) TAKE ONE CAPSULE [...] (07/04/2019): Added automatically from request for surgery [id number] 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 [...] Silent myocardial infarction 03/23/2013 11/08/2018 Accelerate Clinical Trial*[id number] 01/24/2013 05/16/2015 Overview (01/24/2013): ACCELERATE STUDY. Project # [id number], TIP TESTER: Ben Hoover MD. CRC: DEBORAH Back. SUMMARY: To test the hypothesis that Evacetrapib 130 mg, in comparison to placebo, reduces the risk of major adverse coronary events in high-risk vascular disease patients. CONTACTS: During normal business hours, contact study staff at ; after hours Medical Claims Examiner via the [facility] hospital insole toe snipping machine operator [phone]. 24-hour Global Study Helpline: [phone]. Lipid levels should not be ordered/obtained while this subject is in the Accelerate study. Lipids are being managed in a blinded fashion. If lipid levels are inadvertently obtained, it is important that test results are NOT provided to the patient, study doctor, blending coordinator, or other study team members. Restricted meds while in the study: 1) niacin > 250 mg, 2) gemfibrozil with a potent [id number]. NINA on CPAP 06/28/2012 01/31/2020 Overview (06/28/2012): [...] Assessment Author No 01/08/2021 1:48 AM EDT aGurav Redd RN * Are you blind or [...] Centralized Clinical Pharmacy Services, Renee Wise [address] [place] [address] [place] [address] [facility], [address] [place] [address] 03/22/2024 2:30 PM EST Telemedicine [facility], [place] [address] [place] [address] Carolee Manriquez PA-C [address] [place] [address] Edna Baum, Community Health Branch Controller [address] [place] [address] 03/23/2024 7:10 AM EST Laboratory Lab Mobile Phlebotomy [facility] [address] [facility] [place] [address] Mv[facility], Gml Mobile Home Draw [address] [facility] [place] [address] 05/11/2024 2:00 PM EST Office Visit Infectious Disease [facility] [place] [address] [facility] [address] Sherry Roy MD [address] [place] [address] 07/11/2024 9:50 AM EDT Office Visit [facility]Note 2] [address] [place] [address] Sherry Maya, [address] [place] [address] Scheduled Procedures Name Priority Associated Diagnoses Date/Ti [...] Additional history exists CKD PHOS USE SMARTSET 03989 06/03/2024 02/0 10/2023, 11/06/2021, 09/12/2020, Additional history exists HbA1c 06/04/2024 12/03/2023, 07/26, 03/27/2023, Additional history exists Albumin/Creatinine Ratio 06/19/2024 024, 08/15/2022, 11/06/2021, Additional history exists GFR 09/04/2024 03/14/2024, 02/25, 03/07/2024, Additional history exists Depression Monitoring 09/07/2024 09/08/2023 TSH 02/25/2025 02/26/2024, 100 06/2023, 09/24/2023, Additional history exists CKD HGB USE SMARTSET 34751 03/14/202503/14, 03/07/2024, 03/07/2024, Additional history exists DTap/Tdap [...] Priority Date/Time Associated Diagnosis Comments CHEMISTRY-OUTSIDE Routine 03/14/2024 documented in this encounter Results * (ABNORMAL) CHEMISTRY-OUTSIDE (03/14/2024) Not all results display below - see scan for full detail SCAN INCLUDES: CMP, CRP, CK TOTAL OUTSIDE LAB (SEE SCANNED REPORT) CREATININE 1.54(A) 0.70 - 1.30 MG/DL OUTSIDE LAB (SEE SCANNED REPORT) EGFR 51(A) >60 ML/MIN OUTSIDE LAB (SEE SCANNED REPORT) POTASSIUM 3.2(A) 3.5 - 5.1 MMOL/L OUTSIDE LAB (SEE SCANNED REPORT) GLUCOSE 61(A) 70 - 110 MG/DL OUTSIDE LAB (SEE [...] LAB OUTSIDE LAB (SEE SCANNED REPORT) HEMOGLOBIN, [id number] LAB OUTSIDE LAB (SEE SCANNED REPORT) PHOSPHORUS-OUTSID E LAB OUTSIDE LAB (SEE SCANNED REPORT) PTH-OUTSIDE LAB OUTS ADY LAB (SEE SCANNED REPORT) MICROALBUMIN RATIO-OUTSIDE LAB OUTSIDE LA B (SEE SCANNED REPORT) PROTEIN, UA-OUTSIDE LAB OUTSIDE LAB (SEE SCANNED REPORT) HGB OUTSIDE LA B (SEE SCANNED REPORT) 03/14/2024 us Sherry Maya DO LABORATORY Final Result OUTSIDE LAB (SEE SCANNED REPORT) documented in [...] the patient have Health Care Power of Case Assistant? Yes, not currently available * Full [...] Agents on File Name Relationship [facility] Omar Lyle Adult Child [facility] re Agent Xi Mckeont Adult Child Health Care Agent Care Teams Video Systems Engineer Relationship Specialty Start Date End Date Sherry Maya DO [address] [place] [address] PCP - General Family Medicine 11/12/11 documented as of this encounter
--- OUTSIDE RECORDS SUMMARY | 2024-05-24 05:24 | External Medical Summary | Summary of Care ---
Author Name Unknown Organization [facility] Address [address] [facility] [place] [address] Phone [phone] Care Team Providers Care Spring Tier Name Role Phone Sherry Maya DO Primary Care Provider [phone] Reason for Visit * Reason Comments Dosage Adjustment Via Phone (anticoag Cl inic) Encounter Details Date Type Department Care Team (Late st Contact Info) Description 03/15/2024 6:00 PM EST Anticoagulation Centralized Clinical Pharmacy Services, Renee Wise [address] [place] [address] [place] [address] [facility], [address] [place] [address] intermodal customer service current use of anticoagulant therapy* Allergies Active Allergy Reactions Criticality Noted Date Comments Benzonatate 12/08/2016 choking Keyanna Pedraza Other (Please comment) High 04/10/20 09 Choking documented as of this encounter (statuses as of 03/15/2024) Medications ONETOUCH LANCETS MISCIndications:DM type 2, not at goal ([facility]) 3 Box Dosing Unit 1 04/17/20 15 Active Nitroglycerin 0.4 MG Sublingual Tablet Sublingual Place under the tongue every 5 minutes as needed. Up to 3 in 15 minutes. 25 Tab 11 04/17/20 15 Active Magnesium Oxide 400 MG CapsuleIndications:H eart failure, systolic, due to CAD ([facility]),Automatic implantable cardioverter-defibri llator in situ,Chronic ischemic heart disease,Ischemic cardiomyopathy Take 1 Cap by mouth daily. 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),Right knee pain, unspecified chronicity,Heart failure, systolic, due to CAD ([facility]) Bariatric heavy duty walker- 2 wheels- please document patient's weight at 308 1 Each 02/08/20 Active DIURETIC TITRATION PLANIndications:Hear t failure, systolic, due to CAD ([facility]) If no improvement on day 3, [...] 24 Active Vitamin D (Ergocalciferol) 1.25 MG (93451 UT) Oral Capsule (Drisdol) TAKE ONE CAPSULE [...] (07/04/2019): Added automatically from request for surgery [id number] 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 [...] Silent myocardial infarction 03/23/2013 11/08/2018 Accelerate Clinical Trial*[id number] 01/24/2013 05/16/2015 Overview (01/24/2013): ACCELERATE STUDY. Project # [id number], AUTOMOTIVE GENERATOR REPAIRER: Ben Hoover MD. CRC: DEBORAH Back. SUMMARY: To test the hypothesis that Evacetrapib 130 mg, in comparison to placebo, reduces the risk of major adverse coronary events in high-risk vascular disease patients. CONTACTS: During normal business hours, contact study staff at ; after hours Welfare Worker via the [facility] heavy equipment operator/paver [phone]. 24-hour Global Study Helpline: [phone]. Lipid levels should not be ordered/obtained while this subject is in the Accelerate study. Lipids are being managed in a blinded fashion. If lipid levels are inadvertently obtained, it is important that test results are NOT provided to the patient, study doctor, oncology coordinator, or other study team members. Restricted meds while in the study: 1) niacin > 250 mg, 2) gemfibrozil with a potent [id number]. NINA on CPAP 06/28/2012 01/31/2020 Overview (06/28/2012): [...] Author Yes 01/24/2021 2:44 PM EDT John Brsuh RN * Do you have difficulty dressing [...] documented in this encounter Progress Notes * Maldonado Lilly CPhT - 03/15/2024 1:55 PM EST Contacts Contact Date/Time Type Contact Phone/Fax 03/15/2024 01:49 PM EST Phone (Outgoing) Ben Lyle (Self) [phone] (M) Spoke to Patient Subjective Patient Findings Negatives: Signs/symptoms of thrombosis, Signs/symptoms of bleeding, Change in health, Change in alcohol use, Change in activity, Upcoming invasive procedure, Missed doses, Extra doses, Change in medications, Change in diet/appetite, Bruising Comments: Confirmed with patient that he did hold Coumadin last evening. Advised patient to contact Anticoagulation Clinic if any unusual bruising or bleeding, recent illness, changes in medication, or questions/concerns. PT/INR results, Coumadin dose instructions, and next PT/INR date communicated as noted by Pharmacist: Yes Maldonado Lilly CPhT 03/15/2024, 1:55 PM * Jaimee Gandhi RP - 03/15/2024 1:46 PM EST Images from the original note were not included. Coumadin Clinic (region specific) Objective Current Warfarin Dose As of 03/15/2024 Warfarin maintenance plan: 2 mg (2 mg x 1) every Mon, Sat; 4 mg (2 mg x 2) all other days INR Result As of 03/15/2024 INR goal: 2.0-3.0 INR used for dosin.28 (03/14/2024) Assessment & Plan Warfarin Plan As of 03/15/2024 Full warfarin instructions: 03/15: Hold; Otherwise 2 mg every Mon, Sarah, Sat; 4 mg all other days Next INR check: 03/21/2024 call center associate provider advised pt to hold dose last night. Repeat PT/INR in 1 week(s) Weekly dose: decreased Additional Dosing Information: Description GML MTuTh- AMIO (patient has 5mg and 1mg tabs) Tech to contact patient with dose instructions as noted. Jaimee Gandhi RPh 03/15/2024, 1:46 PM * Chitra Medrano CPhT - 03/15/2024 1:39 PM EST Spoke with [facility] lab and obtained INR result from 03/14/24. She will also fax copy for chart. INR = 5.28 Thank you, Chitra Medrano CPhT Meter Maker II Centralized Clinical Pharmacy Services ([facility]) 03/15/2024,1:39 PM documented in this encounter Plan of Treatment Upcoming Encounters Date Type Department Care Team (Late st Contact Info) Description 03/22/2024 2:30 PM EST Telemedicine [facility] [address] [place] [address] Carolee Manriquez PA-C [address] [place] [address] Edna Baum, Community Health Shearing Shed Worker [address] [place] [address] 03/23/2024 7:10 AM EST Laboratory Lab Mobile Phlebotomy [facility] [address] [place] [address] Mvmg, Gml Mobile Home Draw [address] [place] [address] 05/11/2024 2:00 PM EST Office Visit Infectious Disease [facility] [address] [place] [address] Sherry Roy MD [address] [place] [address] 07/11/2024 9:50 AM EDT Office Visit [facility] [address] [facility] [place] [address] Sherry Maya, DO [address] [place] [address] Scheduled Procedures Name Priority Associated Diagnoses Date/Ti [...] Additional history exists CKD PHOS USE SMARTSET 55031 06/03/2024 0210/2023, 11/06/2021, 09/12/2020, Additional history exists HbA1c 06/04/2024 12/03/2023, 07/26, 03/27/2023, Additional history exists Albumin/Creatinine Ratio 06/19/2024 024, 08/15/2022, 11/06/2021, Additional history exists GFR 09/04/2024 03/07/2024, 02/25, 02/28/2024, Additional history exists Depression Monitoring 09/07/2024 09/08/2023 TSH 02/25/2025 02/26/2024, 1006/2023, 09/24/2023, Additional history exists CKD HGB USE SMARTSET 72402 03/07/202503/07, 03/07/2024, 02/28/2024, Additional history exists DTap/Tdap Vaccines (3 - [...] Procedure Name Priority Date/Time Associated Diagnosis Comments OUTSIDE LAB-PT/INR Routine 03/14/2024 documented in this encounter Results * OUTSIDE LAB-PT/INR (03/14/2024) INR-OUTSIDE LAB 5.28 us History Per Patient LABORATORY Final Result documented in this encounter Visit Diagnoses Diagnosis 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 Yes, not currently available * Full Code [...] Relationshi p Communication Omar Ontiverosrett Adult Child [facility] Ca re Agent Xi [place] Adult Child [facility] Care Agent Care Teams Spring Tier Relationship Specialty Start Date End Date Sherry Maya DO [address] [place] [address] PCP - General Family Medicine 11/12/11 documented as of this encounter
--- OUTSIDE RECORDS SUMMARY | 2024-05-24 05:24 | External Medical Summary | Summary of Care ---
Author Name Unknown Organization [facility] Address [address] [facility] [place] [address] Phone [phone] Care Team Providers Care Microbiological Lab Technician Name Role Phone Sherry Maya DO Primary Care Provider + [phone] Reason for Visit * Reason Onset Date Comments Home Health 03/04/2024 Encounter Details Date Type Department Care Team (Late st Contact Info) Description 03/04/[address] [facility] [address] [place] [address] Sherry Maya DO [address] [place] [address] Home Health Allergies Active Allergy Reactions Criticality Noted Date Comments Benzonatate 12/08/2016 choking Keyanna Pedraza Other (Please comment) High 04/10/20 09 Choking documented as of this encounter (statuses as of 03/15/2024) Medications ONETOUCH LANCETS MISCIndications:DM type 2, not at goal ([facility]) 3 Box Dosing Unit 1 04/17/20 15 Active Nitroglycerin 0.4 MG Sublingual Tablet Sublingual Place under the tongue every 5 minutes as needed. Up to 3 in 15 minutes. 25 Tab 11 04/17/20 15 Active Magnesium Oxide 400 MG CapsuleIndications:H eart failure, systolic, due to CAD ([facility]),Automatic implantable cardioverter-defibri llator in situ,Chronic ischemic heart disease,Ischemic cardiomyopathy Take 1 Cap by mouth daily. 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),Right knee pain, unspecified chronicity,Heart failure, systolic, due to CAD ([facility]) Bariatric heavy duty walker- 2 wheels- please document patient's weight at 308 1 Each 02/08/20 Active DIURETIC TITRATION PLANIndications:Hear t failure, systolic, due to CAD ([facility]) If no improvement on day 3, contact [...] 24 Active Vitamin D (Ergocalciferol) 1.25 MG (43712 UT) Oral Capsule (Drisdol) TAKE ONE CAPSULE [...] (07/04/2019): Added automatically from request for surgery [id number] 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 [...] Silent myocardial infarction 03/23/2013 11/08/2018 Accelerate Clinical Trial*[id number] 01/24/2013 05/16/2015 Overview (01/24/2013): ACCELERATE STUDY. Project # [id number], POWER SHOVEL OPERATOR: Ben Hoover MD. CRC: DEBORAH Back. SUMMARY: To test the hypothesis that Evacetrapib 130 mg, in comparison to placebo, reduces the risk of major adverse coronary events in high-risk vascular disease patients. CONTACTS: During normal business hours, contact study staff at ; after hours School Superintendent via the [facility] hospital thimble press operator [phone]. 24-hour Global Study Helpline: [phone]. Lipid levels should not be ordered/obtained while this subject is in the Accelerate study. Lipids are being managed in a blinded fashion. If lipid levels are inadvertently obtained, it is important that test results are NOT provided to the patient, study doctor, children's program coordinator, or other study team members. Restricted meds while in the study: 1) niacin > 250 mg, 2) gemfibrozil with a potent [id number]. NINA on CPAP 06/28/2012 01/31/2020 Overview (06/28/2012): [...] note from 02/28 and insurance information to [facility] Will pend referral for nephrology social worker as requested by [facility] to PCP Pended for PCP approval and will fax when done * Telephone Encounter - Debbi Barnes OSA - 03/08/2024 3:29 PM EST Lori called from [facility] service and stated that she will like for the Dr to send in a Rx Power wheel chair. Pt is non moved cause of his wound. They will need a copy of his insurance and Dem. Please fax order to [phone] * Telephone Encounter - Sherry Maya DO - 03/04/2024 2:12 PM EST I am not sure what referral to place, can you send to case management and see? * Telephone Encounter - Lori Mcclain LPN - 03/04/2024 1:49 PM EST Ani calderón [facility] calling to request nephrology social worker referral to assist in getting mental health resources. documented in this encounter Plan of Treatment Upcoming Encounters Date Type Department Care Team (Late st Contact Info) Description 03/15/2024 6:00 PM EST Anticoagulation Centralized Clinical Pharmacy Services, Renee Wise [address] [place] [address] [place] [address] [facility], [address] [place] [address] FDC current use of anticoagulant therapy* 03/22/2024 2:30 PM EST Telemedicine [facility] [place] [place] [address] [place] [address] Carolee Manriquez PA-C [address] [place] [address] Edna Baum, Community Health Bending Machine Set Up Operator [address] [place] [address] 03/23/2024 7:10 AM EST Laboratory Lab Mobile Phlebotomy [facility] [address] [facility] [place] [address] Mvmg, Gml Mobile Home Draw [address] [facility] [place] [address] 05/11/2024 2:00 PM EST Office Visit Infectious Disease [facility] [address] [facility] [place] [address] Sherry Roy MD [address] [place] [address] 07/11/2024 9:50 AM EDT Office Visit [facility] [address] [place] [address] Sherry Maya, DO [address] [place] [address] Scheduled Procedures Name Priority Associated Diagnoses Date/Ti [...] Additional history exists CKD PHOS USE SMARTSET 31149 06/03/2024 0210/2023, 11/06/2021, 09/12/2020, Additional history exists HbA1c 06/04/2024 12/03/2023, 07/26, 03/27/2023, Additional history exists Albumin/Creatinine Ratio 06/19/2024 024, 08/15/2022, 11/06/2021, Additional history exists GFR 09/04/2024 03/07/2024, 02/25, 02/28/2024, Additional history exists Depression Monitoring 09/07/2024 09/08/2023 TSH 02/25/2025 02/26/2024, 1006/2023, 09/24/2023, Additional history exists CKD HGB USE SMARTSET 02622 03/07/202503/07, 03/07/2024, 02/28/2024, Additional history exists DTap/Tdap [...] patient have Health Care Power of Senior Qc Technician? Yes, not currently available * Full [...] Relationshi p Communication Omar Lyle Adult Child [facility] Ca re Agent Xi Lyle Adult Child Health Care Agent Care Teams Microbiological Lab Technician Relationship Specialty Start Date End Date Sherry Maya DO [address] [place] [address] PCP - General Family Medicine 11/12/11 documented as of this encounter
--- OUTSIDE RECORDS SUMMARY | 2024-05-24 05:24 | External Medical Summary | Summary of Care ---
Author Name Unknown Organization [facility] Address [address] [place] [facility] [facility] [place] [address] Phone [phone] Care Team Providers Care Bridge/Structure Inspection Team Leader Name Role Phone Sherry Maya DO Primary Care Provider + [phone] Encounter Details Date Type Department Care Team (Late st Contact Info) Description 03/15/2024 Orders Only [place] [address] [place] [address] Sherry Maya DO [address] [place] [address] Allergies Active Allergy Reactions Criticality [...] type 2, not at goal ([facility]),Diabetic polyneuropathy associated with type 1 [...] 24 Active Vitamin D (Ergocalciferol) 1.25 MG (30374 UT) Oral Capsule (Drisdol) TAKE ONE CAPSULE [...] (07/04/2019): Added automatically from request for surgery [id number] 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 Project # [id number], MOWER OPERATOR: Ben Hoover MD. CRC: DEBORAH Back. SUMMARY: To test the hypothesis that Evacetrapib 130 mg, in comparison to placebo, reduces the risk of major adverse coronary events in high-risk vascular disease patients. CONTACTS: During normal business hours, contact study staff at ; after hours Metal Grinder via the [facility] hospital pump operator byproducts [phone]. 24-hour Global Study Helpline: [phone]. Lipid levels should not be ordered/obtained while this subject is in the Accelerate study. Lipids are being managed in a blinded fashion. If lipid levels are inadvertently obtained, it is important that test results are NOT provided to the patient, study doctor, emergency management coordinator, or other study team members. Restricted meds while in the study: 1) niacin > 250 mg, 2) gemfibrozil with a potent [id number]. NINA on CPAP 06/28/2012 01/31/2020 Overview (06/28/2012): [...] PM EST Anticoagulation [facility], [address] [place] [address] [facility], [address] [place] [address] long term care social worker current use of anticoagulant therapy* 03/22/2024 6:00 AM EST Anticoagulation [facility], [address] [place] [address] [place] [address] 03/22/2024 2:30 PM EST [facility]medicine [facility] [place] [address] [place] [address] Carolee Manriquez PA-C [address] [place] [address] Edna Baum, Community Health Plasma Center Technician [address] [place] [address] 03/23/2024 7:10 AM EST Laboratory Lab Mobile Phlebotomy [facility] [address] [facility] [place], [place] [address] Mvmg, Gml Mobile Home Draw [address] [facility] [place], [place] [address] 05/11/2024 2:00 PM EST Office Visit Infectious Disease [facility] [place] [address] [facility] [place], [place] [address] Sherry Roy MD [address] [place] [address] 07/11/2024 9:50 AM EDT Office Visit [facility] [address] [place] [address] Sherry Maya, [facility] [place] [address] Scheduled Procedures Name Priority Associated Diagnoses Date/Ti [...] Additional history exists CKD PHOS USE SMARTSET 68396 06/03/2024 0210/2023, 11/06/2021, 09/12/2020, Additional history exists HbA1c 06/04/2024 12/03/2023, 07/26, 03/27/2023, Additional history exists Albumin/Creatinine Ratio 06/19/2024 024, 08/15/2022, 11/06/2021, Additional history exists GFR 09/04/2024 03/07/2024, 02/25, 02/28/2024, Additional history exists Depression Monitoring 09/07/2024 09/08/2023 TSH 02/25/2025 02/26/2024, 1006/2023, 09/24/2023, Additional history exists CKD HGB USE SMARTSET 23362 03/14/202503/14, 03/07/2024, 03/07/2024, Additional history exists DTap/Tdap [...] full detail OUTSIDE LAB (SEE SCANNED REPORT) Comment:SEE SCAN - CBC CREATININE OUTSIDE L AB (SEE SCANNED REPORT) EGFR OUTSIDE LA B (SEE SCANNED REPORT) POTASSIUM OUTSIDE LA B (SEE SCANNED REPORT) GLUCOSE OUTSIDE LA B (SEE SCANNED REPORT) HOURS FASTING OUTSID E LAB (SEE SCANNED REPORT) TRIGLYCERIDES-OUT SIDE LAB OUTSIDE LAB (SEE SCANNED REPORT) CHOLESTEROL-OUTSI DE LAB OUTSIDE LAB (SEE SCANNED REPORT) HDL-OUTSIDE LAB OUTS ADY LAB (SEE SCANNED REPORT) CHOL/HDL RATIO-OUTSIDE LAB OUTSIDE LA B (SEE SCANNED REPORT) LDL (CALCULATED)-OUTS ADY LAB OUTSIDE LAB (SEE SCANNED REPORT) LDL (DIRECT MEASURE)-OUTSIDE LAB OUTSIDE LAB (SEE SCANNED REPORT) HEMOGLOBIN, X6L-SOVHFLU LAB OUTSIDE LAB (SEE SCANNED REPORT) PHOSPHORUS-OUTSID E LAB OUTSIDE LAB (SEE SCANNED REPORT) PTH-OUTSIDE LAB OUTS ADY LAB (SEE SCANNED REPORT) MICROALBUMIN RATIO-OUTSIDE LAB OUTSIDE LA B (SEE SCANNED REPORT) PROTEIN, UA-OUTSIDE LAB OUTSIDE LAB (SEE SCANNED REPORT) HGB 12.5(A) 13.5 - 18.0 G/DL OUTSIDE LAB (SEE SCANNED REPORT) 03/14/2024 us Anthony Figueroa MD LABORATORY Final Res [...] the patient have Health Care Power of Event Manager? Yes, not currently available * Full [...] Relationshi p Communication Omar Lyle Adult Child [facility] Health Ca re Agent Xi Lyle Adult Child Health Care Agent Care Teams Bridge/Structure Inspection Team Leader Relationship Specialty Start Date End Date Sherry Maya DO [address] [place] [address] PCP - General Family Medicine 11/12/11 documented as of this encounter
--- OUTSIDE RECORDS SUMMARY | 2024-05-24 05:24 | External Medical Summary | Summary of Care ---
Author Name Unknown Organization [facility] Address [address] [facility] [place] [address] Phone [phone] Care Team Providers Care Electric Welder Name Role Phone Sherry Maya DO Primary Care Provider + [phone] Reason for Visit * Reason Onset Date Comments Home Health 03/04/2024 Encounter Details Date Type Department Care Team (Late st Contact Info) Description 03/04/2024 Telephone [facility] [address] [place] [address] Sherry Maya DO [address] [place] [address] Home Health Allergies Active Allergy [...] Cap 5 03/16/20 17 Active Glucose Blood (KonbiniTOUCH VERIO) STRP USE TO TEST BLOOD GLUCOSE [...] 24 Active Vitamin D (Ergocalciferol) 1.25 MG (89864 UT) Oral Capsule (Drisdol) TAKE ONE CAPSULE [...] (07/04/2019): Added automatically from request for surgery [id number] 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 [...] Silent myocardial infarction 03/23/2013 11/08/2018 Accelerate Clinical Trial*[id number] 01/24/2013 05/16/2015 Overview (01/24/2013): ACCELERATE STUDY. Project # [id number], ACT TUTOR: Ben Hoover MD. CRC: DEBORAH Back. SUMMARY: To test the hypothesis that Evacetrapib 130 mg, in comparison to placebo, reduces the risk of major adverse coronary events in high-risk vascular disease patients. CONTACTS: During normal business hours, contact study staff at ; after hours Wire Temperer via the [facility] hospital marsh buggy operator [phone]. 24-hour Global Study Helpline: [phone]. Lipid levels should not be ordered/obtained while this subject is in the Accelerate study. Lipids are being managed in a blinded fashion. If lipid levels are inadvertently obtained, it is important that test results are NOT provided to the patient, study doctor, procurement cost coordinator, or other study team members. Restricted meds while in the study: 1) niacin > 250 mg, 2) gemfibrozil with a potent [id number]. NINA on CPAP 06/28/2012 01/31/2020 Overview (06/28/2012): [...] note from 02/28 and insurance information to [facility] Will pend referral for criminal justice social worker as requested by [facility] to PCP Pended for PCP approval and will fax when done [facility] * Telephone Encounter - Debbi Barnes OSA - 03/08/2024 3:29 PM EST Lori called from [facility] and stated that she will like for the Dr to send in a Rx Power wheel chair. Pt is non moved cause of his wound. They will need a copy of his insurance and Dem. Please fax order to [phone] * Telephone Encounter - Sherry Maya DO - 03/04/2024 2:12 PM EST I am not sure what referral to place, can you send to case management and see? * Telephone Encounter - Lori Mcclain LPN - 03/04/2024 1:49 PM EST Ani calderón [facility] calling to request criminal justice social worker referral to assist in getting mental health resources. documented in this encounter Plan of Treatment Upcoming Encounters Date Type Department Care Team (Late st Contact Info) Description 03/15/2024 6:00 PM EST Anticoagulation Centralized Clinical Pharmacy Services, [facility] [place] [address] [place] [address] [place] [address] [place] [address] rat exterminator current use of anticoagulant therapy* 03/22/2024 6:00 AM EST Anticoagulation Centralized Clinical Pharmacy Services, [address] [place] [address] [place] [address] 03/22/2024 2:30 PM EST [facility]medicine [facility] [place], [place] [address] [place] [address] Craolee Manriquez PA-C [address] [place] [address] Edna Baum, [facility] Ground Wood Supervisor [address] [place] [address] 03/23/2024 7:10 AM EST Laboratory Lab Mobile Phlebotomy [facility] [address] [place] [address] Mv[facility], Gml Mobile Home Draw [address] [place] [address] 05/11/2024 2:00 PM EST Office Visit Infectious Disease [facility] Matty Villarreal [address] [place] [address] Sherry Roy MD [address] [place] [address] 07/11/2024 9:50 AM EDT Office Visit [address] [address] Sherry Maya, [address] [place] [address] Scheduled Procedures Name Priority Associated Diagnoses Date/Ti [...] Additional history exists CKD PHOS USE SMARTSET 88545 06/03/202410/2023, 11/06/2021, 09/12/2020, Additional history exists HbA1c 06/04/2024 12/03/2023, 07/26, 03/27/2023, Additional history exists Albumin/Creatinine Ratio 06/19/20242 024, 08/15/2022, 11/06/2021, Additional history exists GFR 09/04/2024 03/07/2024, 02/25, 02/28/2024, Additional history exists Depression Monitoring 09/07/2024 09/08/2023 TSH 02/25/2025 02/26/2024, 1006/2023, 09/24/2023, Additional history exists CKD HGB USE SMARTSET 14235 03/14/202503/14, 03/07/2024, 03/07/2024, Additional history exists DTap/Tdap [...] the patient have Health Care Power of Career Development Director? Yes, not currently available * Full Code [...] Agents on File Name Relationship Healthcare Agent Relationsin p Communication Omar Mckeont Adult Child [facility] re Agent Xi [place] Adult [facility] Care Agent Care Teams Electric Welder Relationship Specialty Start Date End Date Sherry Maya DO [address] [place], [place] [id number] PCP - General Family Medicine 11/12/11 documented as of this encounter
--- OUTSIDE RECORDS SUMMARY | 2024-05-24 05:24 | External Medical Summary | Summary of Care ---
Author Name Unknown Organization [facility] Address [address] [facility] [place] [address] Phone [phone] Care Team Providers Care Wild Life Manager Name Role Phone Sherry Maya DO Primary Care Provider + [phone] Reason for Visit * Reason Onset Date Comments Home Health 03/04/2024 Encounter Details Date Type Department Care Team (Late st Contact Info) Description 03/04/2024 Telephone [facility] [address] [place] [address] Sherry Maya DO [address] [place] [address] Home Health Allergies Active Allergy Reactions Criticality Noted Date Comments Benzonatate 12/08/2016 choking Keyanna Pedraza Other (Please comment) High 04/10/20 09 Choking documented as of this encounter (statuses as of 03/15/2024) Medications ONETOUCH LANCETS MISCIndications:DM type 2, not at goal ([facility]) 3 Box Dosing Unit 1 04/17/20 15 Active Nitroglycerin 0.4 MG Sublingual Tablet Sublingual Place under the tongue every 5 minutes as needed. Up to 3 in 15 minutes. 25 Tab 11 04/17/20 15 Active Magnesium Oxide 400 MG CapsuleIndications:H eart failure, systolic, due to CAD ([facility]),Automatic implantable cardioverter-defibri llator in situ,Chronic ischemic heart disease,Ischemic cardiomyopathy Take 1 Cap by mouth daily. 30 Cap 5 03/16/20 17 Active Glucose Blood (YillioTOUCH VERIO) STRP USE TO TEST BLOOD GLUCOSE [...] t failure, systolic, due to CAD ([facility] [...] 24 Active Vitamin D (Ergocalciferol) 1.25 MG (37222 UT) Oral Capsule (Drisdol) TAKE ONE CAPSULE [...] (07/04/2019): Added automatically from request for surgery [id number] 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 [...] Silent myocardial infarction 03/23/2013 11/08/2018 Accelerate Clinical Trial*[id number] 01/24/2013 05/16/2015 Overview (01/24/2013): ACCELERATE STUDY. Project # [id number], VEGETABLE HANDLER: Ben Hoover MD. CRC: DEBORAH Back. SUMMARY: To test the hypothesis that Evacetrapib 130 mg, in comparison to placebo, reduces the risk of major adverse coronary events in high-risk vascular disease patients. CONTACTS: During normal business hours, contact study staff at ; after hours Brick Grader via the [facility] hospital layout operator [phone]. 24-hour Global Study Helpline: [phone]. Lipid levels should not be ordered/obtained while this subject is in the Accelerate study. Lipids are being managed in a blinded fashion. If lipid levels are inadvertently obtained, it is important that test results are NOT provided to the patient, study doctor, clinical trial coordinator, or other study team members. Restricted meds while in the study: 1) niacin > 250 mg, 2) gemfibrozil with a potent [id number]. NINA on CPAP 06/28/2012 01/31/2020 Overview (06/28/2012): [...] encounter Miscellaneous Notes * Addendum Note - Jduith Hays LPN - 03/15/2024 2:00 PM ESTAddended by: JUDITH HAYS on: 03/15/2024 02:00 PM Modules accepted: Orders * Telephone Encounter - Judith Hays LPN - 03/15/2024 1:56 PM EST Chart reviewed Power chair order done by Dr Parks on 02/29/24 Faxed DME order for power chair, demographics, note from 02/28 and insurance information to [facility] Will pend referral for social service technician as requested by [facility] to PCP Pended for PCP approval and will fax when done * Telephone Encounter - Debbi Barnes OSA - 03/08/2024 3:29 PM EST Lori called from [facility] service and stated that she will like for the Dr to send in a Rx Power wheel chair. Pt is non moved cause of his wound. They will need a copy of his insurance and Dem. Please fax order to [phone] * Telephone Encounter - Sherry Maya DO - 03/04/2024 2:12 PM EST I am not sure what referral to place, can you send to case management and see? * Telephone Encounter - Lori Mcclain LPN - 03/04/2024 1:49 PM EST Ani calderón [facility] calling to request social service technician referral to assist in getting mental health resources. documented in this encounter Plan of Treatment Upcoming Encounters Date Type Department Care Team (Late st Contact Info) Description 03/15/2024 6:00 PM EST Anticoagulation Centralized Clinical Pharmacy Services, Renee Wise [address] [place] [address] [place] [address] [facility], [address] [place] [address] senior care current use of anticoagulant therapy* 03/22/2024 2:30 PM EST Telemedicine [facility] [place], [place] [address] [place] [address] Carolee Manriquez PA-C [address] [place] [address] Edna Baum, Community [facility] Customer Support Manager [address] [place] [address] 03/23/2024 7:10 AM EST Laboratory Lab Mobile Phlebotomy [facility] [address] [facility] [place] [address] Mvmg, Gml Mobile Home Draw [address] [facility] [place] [address] 05/11/2024 2:00 PM EST Office Visit Infectious Disease [facility] [address] [facility] [place] [address] Sherry Roy MD [address] [place] [address] 07/11/2024 9:50 AM EDT Office Visit [facility] [address] [place] [address] Sherry Maya, DO [address] [place] [address] Scheduled Procedures Name Priority Associated Diagnoses Date/Ti [...] Additional history exists CKD PHOS USE SMARTSET 83195 06/03/2024 0210/2023, 11/06/2021, 09/12/2020, Additional history exists HbA1c 06/04/2024 12/03/2023, 07/26, 03/27/2023, Additional history exists Albumin/Creatinine Ratio 06/19/2024 024, 08/15/2022, 11/06/2021, Additional history exists GFR 09/04/2024 03/07/2024, 02/25, 02/28/2024, Additional history exists Depression Monitoring 09/07/2024 09/08/2023 TSH 02/25/2025 02/26/2024, 1006/2023, 09/24/2023, Additional history exists CKD HGB USE SMARTSET 16246 03/07/202503/07, 03/07/2024, 02/28/2024, Additional history exists DTap/Tdap [...] the patient have Health Care Power of Documentum Consultant? Yes, not currently available * Full Code [...] Relationship Healthcare Agent Relationshi p Communication Omar yLle Adult Child [facility] re Agent Xi Lyle Adult Child Health Care Agent Care Teams Wild Life Manager Relationship Specialty Start Date End Date Sherry Maya DO [address] [place] [address] PCP - General Family Medicine 11/12/11 documented as of this encounter
--- OUTSIDE RECORDS SUMMARY | 2024-05-24 05:24 | External Medical Summary | Summary of Care ---
Author Name Unknown Organization [facility] Address [address] [facility] [place] [address] Phone [phone] Care Team Providers Care Retail And Promotions Coordinator Name Role Phone Sherry Maya DO Primary Care Provider [phone] Encounter Details Date Type Department Care Team (Late st Contact Info) Description 03/14/2024 Result Scan Unspecified Department <No scans attached> Allergies Active Allergy Reactions [...] Cap 5 03/16/20 17 Active Glucose Blood (ONETOUCH VERIO) STRP [...] failure, systolic, due to CAD ([facility]) Bariatric heavy duty walker- 2 wheels- please document patient's weight at 308 1 Each 02/08/20 Active DIURETIC TITRATION PLANIndications:Hear t failure, systolic, due to CAD ([facility]) If no improvement on day 3, [...] type 2, not at goal ([facility]),Diabetic polyneuropathy associated with type 1 diabetes [...] 24 Active Vitamin D (Ergocalciferol) 1.25 MG (26194 UT) Oral Capsule (Drisdol) TAKE ONE CAPSULE [...] (07/04/2019): Added automatically from request for surgery [id number] 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 [...] Silent myocardial infarction 03/23/2013 11/08/2018 Accelerate Clinical Trial*[id number] 01/24/2013 05/16/2015 Overview (01/24/2013): ACCELERATE STUDY. Project # [id number], UNIVERSITY REGISTRAR: Ben Hoover MD. CRC: DEBORAH Back. SUMMARY: To test the hypothesis that Evacetrapib 130 mg, in comparison to placebo, reduces the risk of major adverse coronary events in high-risk vascular disease patients. CONTACTS: During normal business hours, contact study staff at ; after hours Quality Management Coordinator via the [facility] band saw operator cake cutting [phone]. 24-hour Global Study Helpline: [phone]. Lipid levels should not be ordered/obtained while this subject is in the Accelerate study. Lipids are being managed in a blinded fashion. If lipid levels are inadvertently obtained, it is important that test results are NOT provided to the patient, study doctor, human resources benefits coordinator, or other study team members. Restricted meds while in the study: 1) niacin > 250 mg, 2) gemfibrozil with a potent [id number]. NINA on CPAP 06/28/2012 01/31/2020 Overview (06/28/2012): [...] Centralized Clinical Pharmacy Services, Renee Wise [address] [place] [address] [place] [address] [place] [address] long term acute care registered nurse current use of anticoagulant therapy* 03/22/2024 2:30 PM EST [facility]medicine [facility], [place] [address] [place] [address] Carolee Manriquez PA-C [address] [place] [address] Edna Baum, Community [facility] Carpenter Labor Supervisor [address] [place] [address] 03/23/2024 7:10 AM EST Laboratory Lab Mobile Phlebotomy [facility] [address] [place] [address] Mvmg, Gml Mobile Home Draw [address] [place] [address] 05/11/2024 2:00 PM EST Office Visit Infectious Disease [facility] 200 [place] [address] Sherry Roy MD [address] [place] [address] 07/11/2024 9:50 AM EDT Office Visit Family [facility] [address] [place] [address] Sherry Maya, [address] [place] [address] Scheduled Procedures Name Priority Associated Diagnoses Date/Ti [...] Additional history exists CKD PHOS USE SMARTSET 54501 06/03/2024 02/0 10/2023, 11/06/2021, 09/12/2020, Additional history exists HbA1c 06/04/2024 12/03/2023, 07/26, 03/27/2023, Additional history exists Albumin/Creatinine Ratio 06/19/2024 024, 08/15/2022, 11/06/2021, Additional history exists GFR 09/04/2024 03/07/2024, 02/25, 02/28/2024, Additional history exists Depression Monitoring 09/07/2024 09/08/2023 TSH 02/25/2025 02/26/2024, 1006/2023, 09/24/2023, Additional history exists CKD HGB USE SMARTSET 29658 03/07/202503/07, 03/07/2024, 02/28/2024, Additional history exists DTap/Tdap [...] Name Priority Date/Time Associated Diagnosis Comments OUTSIDE LAB RESULTS 03/14/2024 documented in this encounter Results * OUTSIDE LAB RESULTS (03/14/2024) 03/14/2024 us No Physician Data Unknown LABORATORY Final Result documented in this encounter Advance Directives * [...] the patient have Health Care Power of Component Prep Operator? Yes, not currently available * Full [...] Relationshi p Communication Maurymemo Lyle Adult Child [facility] re Agent Xi Lyle Adult Child Health Care Agent Care Teams Retail And Promotions Coordinator Relationship Specialty Start Date End Date Sherry Maya DO [address] [place] [address] PCP - General Family Medicine 11/12/11 documented as of this encounter
--- OUTSIDE RECORDS SUMMARY | 2024-05-24 05:25 | External Medical Summary | Summary of Care ---
Author Name Unknown Organization [facility] Address [address] [facility] [place] [address] Phone [phone] Care Team Providers Care Fresh Meat Grader Name Role Phone Sherry Maya DO Primary Care Provider + [phone] Reason for Visit * Reason Onset Date Comments FYI 03/14/2024 Encounter Details Date Type Department Care Team (Late st Contact Info) Description 03/14/2024 Telephone [facility] [address] [place] [address] Sherry Maya DO [address] [place] [address] FYI Allergies Active Allergy Reactions Criticality Noted Date Comments Benzonatate 12/08/2016 choking Keyanna Pedraza Other (Please comment) High 04/10/20 09 Choking documented as of this encounter (statuses as of 03/14/2024) Medications ONETOUCH LANCETS MISCIndications:DM type 2, not at goal ([facility]) 3 Box Dosing Unit 1 04/17/20 15 Active Nitroglycerin 0.4 MG Sublingual Tablet Sublingual Place under the tongue every 5 minutes as needed. Up to 3 in 15 minutes. 25 Tab 11 04/17/20 15 Active Magnesium Oxide 400 MG CapsuleIndications:H eart failure, systolic, due to CAD ([facility]),Automatic implantable cardioverter-defibri llator in situ,Chronic ischemic heart disease,Ischemic cardiomyopathy Take 1 Cap by mouth daily. 30 Cap 5 03/16/20 17 Active Glucose Blood (TWINLINXTOUCH VERIO) STRP USE TO TEST BLOOD GLUCOSE [...] diabetes mellitus due to underlying condition (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) Bariatric heavy duty walker- 2 wheels- please document patient's weight at 308 1 Each 02/08/20 Active DIURETIC TITRATION PLANIndications:Hear t failure, systolic, due to CAD ([facility]) If no improvement on day 3, [...] 24 Active Vitamin D (Ergocalciferol) 1.25 MG (22175 UT) Oral Capsule (Drisdol) TAKE ONE CAPSULE [...] as of this encounter (statuses as of 03/14/2024) Active Problems Problem Noted Date Diagnosed Date [...] (07/04/2019): Added automatically from request for surgery [id number] 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 [...] as of this encounter (statuses as of 03/14/2024) Resolved Problems Problem Noted Date Diagnosed Date [...] Silent myocardial infarction 03/23/2013 11/08/2018 Accelerate Clinical Trial*[id number] 01/24/2013 05/16/2015 Overview (01/24/2013): ACCELERATE STUDY. Project # [id number], SENIOR UI SOFTWARE ENGINEER: Ben Hoover MD. CRC: DEBORAH Back. SUMMARY: To test the hypothesis that Evacetrapib 130 mg, in comparison to placebo, reduces the risk of major adverse coronary events in high-risk vascular disease patients. CONTACTS: During normal business hours, contact study staff at ; after hours Weatherization Operations Manager via the [facility] hospital change number operator [phone]. 24-hour Global Study Helpline: [phone]. Lipid levels should not be ordered/obtained while this subject is in the Accelerate study. Lipids are being managed in a blinded fashion. If lipid levels are inadvertently obtained, it is important that test results are NOT provided to the patient, study doctor, mail service coordinator, or other study team members. Restricted meds while in the study: 1) niacin > 250 mg, 2) gemfibrozil with a potent [id number]. NINA on CPAP 06/28/2012 01/31/2020 Overview (06/28/2012): [...] as of this encounter (statuses as of 03/14/2024) Immunizations Name Administration Dates Next Due COVID-19 [...] encounter Miscellaneous Notes * Telephone Encounter - Daubert, Nataliia, NINA - 03/14/2024 9:12 PM EST Francheska with [facility] called to give critical INR results. [place] Text sent to Dr Tinoco whom responded and is returning call. documented in this encounter Plan of Treatment Upcoming Encounters Date Type Department Care Team (Late st Contact Info) Description 03/22/2024 6:00 AM EST Anticoagulation Centralized Clinical Pharmacy Services, Renee Wise [address] [place] [address] [place] [address] [facility], [address] [place] [address] 03/22/2024 2:30 PM EST [facility]icine [facility] [address] [place] [address] Carolee Manriquez PA-C [address] [place] [address] Edna Baum, [facility] Brass Reclaimer [address] [place] [address] 03/23/2024 7:10 AM EST Laboratory Lab Mobile Phlebotomy [facility] [address] [facility] [place], [place] [address] Mvmg, Gml Mobile Home Draw [address] [employer] [facility] [place], [place] [address] 05/11/2024 2:00 PM EST Office Visit Infectious Disease [facility] [place] 200 [facility] [place] [address] Sherry Roy MD [address] [place] [address] 07/11/2024 9:50 AM EDT [facility] 226 [facility] [place] [address] Sherry Maya, DO [address] [place] [address] Scheduled Procedures Name Priority Associated Diagnoses Date/Ti [...] Additional history exists CKD PHOS USE SMARTSET 52477 06/03/2024 020 10/2023, 11/06/2021, 09/12/2020, Additional history exists HbA1c 06/04/2024 12/03/2023, 07/26, 03/27/2023, Additional history exists Albumin/Creatinine Ratio 06/19/202406/19/2 024, 08/15/2022, 11/06/2021, Additional history exists GFR 09/04/2024 03/07/2024, 02/25, 02/28/2024, Additional history exists Depression Monitoring 09/07/2024 09/08/2023 TSH 02/25/2025 02/26/2024, 1006/2023, 09/24/2023, Additional history exists CKD HGB USE SMARTSET 34714 03/07/202503/07, 03/07/2024, 02/28/2024, Additional history exists DTap/Tdap [...] the patient have Health Care Power of Roving Machine Operator? Yes, not currently available * [...] Relationshi p Communication Omar Lyle Adult Child [facility] re Agent Xi Lyle Adult Child [facility] Care Agent Care Teams Fresh Meat Grader Relationship Specialty Start Date End Date Sherry Maya DO [address] [place] [address] PCP - General Family Medicine 11/12/11 documented as of this encounter
--- OUTSIDE RECORDS SUMMARY | 2024-05-24 05:25 | External Medical Summary | Summary of Care ---
Author Name Unknown Organization [facility] Address [address] [facility] [place] [address] Phone [phone] Care Team Providers Care Fbi Sharpshooter Name Role Phone Sherry Maya DO Primary Care Provider + [phone] Reason for Visit * Reason Onset Date Comments FYI 03/14/2024 Encounter Details Date Type Department Care Team (Late st Contact Info) Description 03/14/2024 Telephone [facility] [address] [place] [address] Sherry Maya DO [address] [place] [address] FYI Allergies Active Allergy Reactions [...] systolic, due to CAD ([facility]),Automatic implantable cardioverter-defibri llator in situ,Chronic ischemic heart disease,Ischemic cardiomyopathy Take 1 Cap by mouth daily. 30 Cap 5 03/16/20 17 Active Glucose Blood (Alternative Green TechnologiesTOUCH VERIO) STRP USE TO TEST BLOOD GLUCOSE [...] 24 Active Vitamin D (Ergocalciferol) 1.25 MG (07195 UT) Oral Capsule (Drisdol) TAKE ONE CAPSULE [...] (07/04/2019): Added automatically from request for surgery [id number] 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 [...] Silent myocardial infarction 03/23/2013 11/08/2018 Accelerate Clinical Trial*[id number] 01/24/2013 05/16/2015 Overview (01/24/2013): ACCELERATE STUDY. Project # [id number], AIX ADMINISTRATOR: Ben Hoover MD. CRC: DEBORAH Back. SUMMARY: To test the hypothesis that Evacetrapib 130 mg, in comparison to placebo, reduces the risk of major adverse coronary events in high-risk vascular disease patients. CONTACTS: During normal business hours, contact study staff at ; after hours Specifications Checker via the [facility] [place] hospital wash oil pump operator helper [phone]. 24-hour Global Study Helpline: [phone]. Lipid levels should not be ordered/obtained while this subject is in the Accelerate study. Lipids are being managed in a blinded fashion. If lipid levels are inadvertently obtained, it is important that test results are NOT provided to the patient, study doctor, audio visual coordinator, or other study team members. Restricted meds while in the study: 1) niacin > 250 mg, 2) gemfibrozil with a potent [id number]. NINA on CPAP 06/28/2012 01/31/2020 Overview (06/28/2012): [...] encounter Miscellaneous Notes * Telephone Encounter - Peter Tinoco MD - 03/14/2024 9:40 PM EST Received a tiger text Inr of 5.2 Spoke to pt -he is on IV abx for wound/skin infection -he has been holding his Coumadin sat and sun and was planning on taking it tonight Plan: Adviced the pt to hold the Coumadin tonight. Will inform Coumadin clinic to obtain the new med regimen Pt denied any gum bleeding or black or bloody stool ER precaution given * Telephone Encounter - Justine Zayas OSA - 03/14/2024 9:12 PM EST Francheska with [facility] called to give critical INR results. Wilson Text sent to Dr Tinoco whom responded and is returning call. documented in this encounter Plan of Treatment Upcoming Encounters Date Type Department Care Team (Late st Contact Info) Description 03/22/2024 6:00 AM EST Anticoagulation Centralized Clinical Pharmacy Services, [address] [place] [address] [place] [address] 03/22/2024 2:30 PM EST Telemedicine [facility] [address] [place] [address] Carolee Manriquez PA-C [address] [place] [address] Edna Baum, Community Health Forest Botany Instructor [address] [place] [address] 03/23/2024 7:10 AM EST Laboratory Lab Mobile Phlebotomy [address] [place], [place] [address] [facility], Gml Mobile Home Draw [address] [facility] [place], [place] [address] 05/11/2024 2:00 PM EST Office Visit Infectious Disease [facility] [address] [place] [address] Sherry Ryo MD [address] [place] [address] 07/11/2024 9:50 AM EDT Office Visit [facility] [address] [place] [address] Sherry Maya, [address] [place] [address] Scheduled Procedures Name Priority Associated Diagnoses Date/Ti [...] Additional history exists CKD PHOS USE SMARTSET 85473 06/03/2024 02/0 10/2023, 11/06/2021, 09/12/2020, Additional history exists HbA1c 06/04/2024 12/03/2023, 07/26, 03/27/2023, Additional history exists Albumin/Creatinine Ratio 06/19/202406/19/2 024, 08/15/2022, 11/06/2021, Additional history exists GFR 09/04/2024 03/07/2024, 02/25, 02/28/2024, Additional history exists Depression Monitoring 09/07/2024 09/08/2023 TSH 02/25/2025 02/26/2024, 1006/2023, 09/24/2023, Additional history exists CKD HGB USE SMARTSET 03788 03/07/202503/07, 03/07/2024, 02/28/2024, Additional history exists DTap/Tdap [...] the patient have Health Care Power of Back End Web Developer? Yes, not currently available * Full Code [...] Communication Omar Lyle Adult Child [facility] re Agent [facility] Care Agent Care Teams Fbi Sharpshooter Relationship Specialty Start Date End Date Sherry Maya DO [address] [place] [address] PCP - General Family Medicine 11/12/11 documented as of this encounter
--- OUTSIDE RECORDS SUMMARY | 2024-05-24 05:25 | External Medical Summary | Summary of Care ---
Author Name Unknown Organization [facility] Address [address] [place] [address] Phone [phone] Care Team Providers Care Toxicologist Name Role Phone Sherry Maya DO Primary Care Provider [phone] Encounter Details Date Type Department Care Team (Late st Contact Info) Description 03/03/2024 12:50 PM EST Home Visit [facility] Coordination [facility] Integration [address] [place] [address] Edna Baum, [facility] Health Bi Report Developer [address] [place], [place] [id number] Allergies Active Allergy Reactions Criticality Noted Date [...] diabetes mellitus due to underlying condition ([facility]),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),Right knee pain, unspecified chronicity,Heart failure, systolic, due to CAD ([facility]) Bariatric heavy duty walker- 2 wheels- please document patient's weight at 308 1 Each 02/08/20 Active DIURETIC TITRATION PLANIndications:Hear t failure, systolic, due to CAD ([facility]) If no improvement on day 3, [...] 24 Active Vitamin D (Ergocalciferol) 1.25 MG (92682 UT) Oral Capsule (Drisdol) TAKE ONE CAPSULE [...] (07/04/2019): Added automatically from request for surgery [id number] 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 Project # [id number], MANAGER PRODUCE: Ben Hoover MD. CRC: DEBORAH Back. SUMMARY: To test the hypothesis that Evacetrapib 130 mg, in comparison to placebo, reduces the risk of major adverse coronary events in high-risk vascular disease patients. CONTACTS: During normal business hours, contact study staff at ; after hours Program Support Assistant via the [facility] slag motor operator [phone]. 24-hour Global Study Helpline: [phone]. Lipid levels should not be ordered/obtained while this subject is in the Accelerate study. Lipids are being managed in a blinded fashion. If lipid levels are inadvertently obtained, it is important that test results are NOT provided to the patient, study doctor, acute coordinator, or other study team members. Restricted meds while in the study: 1) niacin > 250 mg, 2) gemfibrozil with a potent [id number]. NINA on CPAP 06/28/2012 01/31/2020 Overview (06/28/2012): [...] in this encounter Progress Notes * Edna Baum, Community Health Bi Report Developer - 03/03/2024 7:43 PM EST Telemedicine visit: No Community Health Bi Report Developer (CONNER) documentation: CHW return home visit to complete home safety assessment. Pt states he is having difficulty with his ramp at the bottom. He stated he was out for an appointment the other day and had to call the [employer] to assist to get him back into his home due to a gap at the bottom of his ramp that he got caught up in and ended up bumping his leg on the banister trying to get over the lip. CHW questioned who installed the ramp, as CHW was unable to find any [facility] that completes free assistance to fix or install ramps. Pt stated he had an organization complete a while ago, but he has been in touch with them and they are going to be able to fix the ramp and will evaluate if they can install a larger front entrance to pt's home, however, they can't do the work until next week and pt has an appointment tomorrow. CHW questioned pt about a friend or relative that could come do a temporary fix at the bottom of the ramp to allow him to get over the ramp safely. Pt states he has a friend that helps him, but hasn't been able to contact him and asked CHW to contact this person. Pt also asked the CHW to contact his children to tell them that he needs help. CHW questioned why he didn't contact his children himself and he stated they won't answer his calls or call him back. Pt aske CHW to place brick pavers at the bottom of the ramp, however, these pavers were large and CHW explained that they were too heavy for me to lift. Pt said he had a hand truck, however, CHW had another appointment and didn't have the time to fix the ramp. Pt said he also had a piece of plywoodthat the CHW could attach to the ramp, however, pt didn't know where the piece was and had no way to attach. He also suggested the CHW rake stones under the bottom of the ramp to eliminate the gap, but he didn't know where his rake was. CHW explained that she didn't carry those type of tools and that this is not a project the CHW does. Pt has been in a power chair for quite a while now, has accessed this ramp numerous times with thischair and also accessed the entrance to and from his home with the power chair. Pt has numerous areas of garbage piled around, wood piles around etc His interior of his home has no yvan, just plywood on the floors with clutter throughout. The pt has 4 or 5 dogs that go in and outside through a doggy door on his front door. CHW questioned the patient about how he is maintaining his NWB status on his right leg and he stated he uses the sliding board and swears he isn't putting weight into theright foot. Medication rec completed with pt not taking several medications due to cost or just because he isn't. CHW will let the CM know of findings. documented in this encounter Plan of Treatment Upcoming Encounters Date Type Department Care Team (Late st Contact Info) Description 03/22/2024 6:00 AM EST Anticoagulation Centralized Clinical Pharmacy Services, Renee Wise [address] [place] [address] [place] [address] [facility], [address] [place] [address] 03/22/2024 2:30 PM EST Telemedicine [facility] at [facility] [address] [place] [address] Carolee Manriquez PA-C [address] [place] [address] Edna Baum Community Health Bi Report Developer [address] [place] [address] 03/23/2024 7:10 AM EST Laboratory Lab Mobile Phlebotomy [facility] [address] [place] [address] Mvmg, Gml Mobile Home Draw [address] [facility] [place] [address] 05/11/2024 2:00 PM EST Office Visit Infectious Disease [facility] [address] [place] [address] Sherry Roy MD [address] [place] [address] 07/11/2024 9:50 AM EDT Office Visit [facility] [address] [place] [address] Sherry Maya, [address] [place] [address] Scheduled Procedures Name Priority Associated Diagnoses Date/Ti [...] Additional history exists CKD PHOS USE SMARTSET 16697 06/03/202410/2023, 11/06/2021, 09/12/2020, Additional history exists HbA1c 06/04/2024 12/03/2023, 07/26, 03/27/2023, Additional history exists Albumin/Creatinine Ratio 06/19/20242 024, 08/15/2022, 11/06/2021, Additional history exists GFR 09/04/2024 03/07/2024, 02/25, 02/28/2024, Additional history exists Depression Monitoring 09/07/2024 09/08/2023 TSH 02/25/2025 02/26/2024, 06/2023, 09/24/2023, Additional history exists CKD HGB USE SMARTSET 88893 03/07/202503/07, 03/07/2024, 02/28/2024, Additional history exists DTap/Tdap [...] the patient have Health Care Power of Proof Clerk? Yes, not currently available * Full Code [...] p Communication Omar Lyle Adult Child [facility] re Agent Xi Mckeont Adult Child [facility] Care Agent Care Teams Toxicologist Relationship Specialty Start Date End Date Sherry Maya DO [address] [place], [place] [phone] PCP - General Family Medicine 11/12/11 documented as of this encounter
[2024-05-24] MEDS: ACETAMINOPHEN 500 MG TAB PO PRN (05:26)
--- OUTSIDE RECORDS SUMMARY | 2024-05-24 05:26 | External Medical Summary | Summary of Care ---
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),Right knee pain, unspecified chronicity,Heart failure, systolic, due to CAD ([facility]) Bariatric heavy duty walker- 2 wheels- please document patient's weight at 308 1 Each 02/08/20 Active DIURETIC TITRATION PLANIndications:Hear t failure, systolic, due to CAD ([facility]) If no improvement on day [...] 24 Active Vitamin D (Ergocalciferol) 1.25 MG (64448 UT) Oral Capsule (Drisdol) TAKE ONE CAPSULE [...] (07/04/2019): Added automatically from request for surgery [id number] 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 Project # [id number], FOOTWEAR STITCHER: Ben Hoover MD. CRC: DEBORAH Back. SUMMARY: To test the hypothesis that Evacetrapib 130 mg, in comparison to placebo, reduces the risk of major adverse coronary events in high-risk vascular disease patients. CONTACTS: During normal business hours, contact study staff at ; after hours Denture Laboratory Technician via the [facility] hospital depalletizer operator [phone]. 24-hour Global Study Helpline: [phone]. Lipid levels should not be ordered/obtained while this subject is in the Accelerate study. Lipids are being managed in a blinded fashion. If lipid levels are inadvertently obtained, it is important that test results are NOT provided to the patient, study doctor, clinical trials data coordinator, or other study team members. Restricted meds while in the study: 1) niacin > 250 mg, 2) gemfibrozil with a potent [id number]. NINA on CPAP 06/28/2012 01/31/2020 Overview (06/28/2012): [...] for ages 0-17 years) Not on file 05 / Food Insecurity Answer Date Recorded Do you [...] Telephone Encounter - Cassi Toro LPN - 03/14/2024 10:44 AM EST Attempted to call patient, there was no answer, left voicemail. When patient returns call, ok for N[place] to relay message, please refer to below documentation. If needed, can transfer to dedicated nurse line. * Telephone Encounter - Sherry Maya DO - 03/11/2024 1:54 PM EST Potassium is still low, is he taking potassium 20 meq? Daily? Missing any doses * Telephone Encounter - Sherry Maya DO - 03/11/2024 1:54 PM EST ----- Message from Anthony Figueroa MD sent at 03/09/2024 9:20 AM EST ----- ----- Message ----- From: Interface, Track Coach Sent: 03/09/2024 6:55 AM EST To: Anthony Figueroa MD documented in this encounter Plan of Treatment Upcoming Encounters Date Type Department Care Team (Late st Contact Info) Description 03/21/2024 7:05 AM EST Laboratory Lab Mobile Phlebotomy [facility] [address] [place] [address] [facility], Gml Mobile Home Draw [address] [facility] [place] [address] 03/22/2024 6:00 AM EST Anticoagulation Centralized Clinical Pharmacy Services, Renee Wise [address] [place] [address] [place] [address] [place] [address] 03/22/2024 2:30 PM EST Telemedicine [facility] [place], [address] [place] [address] Carolee Manriquez PA-C [address] [place] [address] Edna Baum, Community Health Salesperson Floor Coverings [address] [place] [address] 05/11/2024 2:00 PM EST Office Visit Infectious Disease [facility] [address] [place] [address] Sherry Roy MD [address] [place] [address] 07/11/2024 9:50 AM EDT Office Visit [facility] [address] [place] [address] Sherry Maya, DO [address] [place] [address] Scheduled Procedures Name Priority Associated Diagnoses Date/Ti [...] Additional history exists CKD PHOS USE SMARTSET 79341 06/03/2024 02/0 10/2023, 11/06/2021, 09/12/2020, Additional history exists HbA1c 06/04/2024 12/03/2023, 07/26, 03/27/2023, Additional history exists Albumin/Creatinine Ratio 06/19/2024 024, 08/15/2022, 11/06/2021, Additional history exists GFR 09/04/2024 03/07/2024, 02/25, 02/28/2024, Additional history exists Depression Monitoring 09/07/2024 09/08/2023 TSH 02/25/2025 02/26/2024, 06/2023, 09/24/2023, Additional history exists CKD HGB USE SMARTSET 68134 03/07/202503/07, 03/07/2024, 02/28/2024, Additional history exists DTap/Tdap [...] the patient have Health Care Power of Fashion Merchandiser? Yes, not currently available * Full Code [...] p Communication Omar Lyle Adult Child [facility] re Agent Xi Lyle Adult Child Health Care Agent Care Teams Nickel Plant Operator Relationship Specialty Start Date End Date Sherry Maya DO [address] [place] [address] PCP - General Family Medicine 11/12/11 documented as of this encounter
--- OUTSIDE RECORDS SUMMARY | 2024-05-24 05:26 | External Medical Summary | Summary of Care ---
Author Name Unknown Organization [facility] Address [address] [place] [address] Phone [phone] Care Team Providers Care Glassware Finisher Name Role Phone Sherry Maya DO Primary Care Provider [phone] Reason for Referral * Evaluate & Treat - Unlimited Visits (Within 10 days (routine)) - Authorized Specialty Diagnoses / Procedures Referred By Contgrace t Referred To Contact Infectious Diseases / Infectious Disease Diagnoses Osteomyelitis of right foot, unspecified type (HCC) Kwame Parks MD [address] [place] [address] Phone: tel: fax: Referral ID Status Reason Start Date Expiration Date Visits Requested Visits Authorized [id number] Authorized Specialty Services Required 02/29/2024 999 999 Question Answer Referral Priority Within 10 days (routine) Where should this appointment be scheduled? [facility] What condition is the patient being seen for? Hospital Discharge Has this patient been seen on the Infection Disease consult service or had an Ask-A-Doc conversation completed? Yes: Cancel order - patient will be contacted to schedule Reason for Visit * Reason Onset Date Comments Hospital Follow-Up Pt here today due to hospital discharge follow up Hospital Follow-Up 02/29/2024 Encounter Details Date Type Department Care Team (Latest Contact Info) Description 02/29/2024 11:40 AM EST Office Visit [place] [address] [facility] [place] [id number] Kwame Parks MD [address] [place] [address] Osteomyelitis of right foot, unspecified type ([facility])*; S/P foot surgery, right; S/P BKA (below knee amputation) unilateral, left ([facility]); Peripheral arterial disease ([facility]); Type 2 diabetes mellitus with diabetic peripheral angiopathy without gangrene, with long-term current use of insulin ([facility]); Non-pressure chronic ulcer of right lower leg, unspecified ulcer stage ([facility]); Morbid (severe) obesity due to excess calories ([facility]); Insulin pump status; Hospital discharge follow-up; Diabetic polyneuropathy associated with type 2 diabetes mellitus ([facility]); Leg wound, right, initial encounter; Obesity hypoventilation syndrome ([facility]); Stage 3b chronic kidney disease ([facility]); Heart failure, systolic, due to CAD ([facility]); Acquired hypothyroidism; Proliferative diabetic retinopathy of both eyes with macular edema associated with type 2 diabetes mellitus ([facility]); Deep vein thrombosis (DVT) of proximal vein of left lower extremity, unspecified chronicity ([facility]); Insufficient social support; Ulcer of right foot with necrosis of muscle ([facility]); Gait difficulty Allergies Active Allergy Reactions Criticality Noted Date Comments Benzonatate 12/08/2016 choking Keyanna Pedraza Other (Please comment) High 04/10/20 09 Choking documented as of this encounter (statuses as of 03/10/2024) Medications ONETOUCH LANCETS MISCIndications:DM type 2, not at goal ([facility]) 3 Box Dosing Unit 1 Active Nitroglycerin 0.4 MG Sublingual Tablet Sublingual Place under the tongue every 5 minutes as needed. Up to 3 in 15 minutes. 25 Tab 11 Active Magnesium Oxide 400 MG CapsuleIndications:H eart failure, systolic, due to CAD ([facility]),Automatic implantable cardioverter-defibri llator in situ,Chronic ischemic heart disease,Ischemic cardiomyopathy Take 1 Cap by mouth daily. 30 Cap 5 017 Active Glucose Blood (ONETOUCH VERIO) STRP USE TO TEST BLOOD GLUCOSE 8 TIMES A DAY 800 Strip 3 Active Insulin Aspart 100 UNIT/ML Injection Solution Inject under the skin. FOR USE IN PUMP Active Talking Datauch Verio Flex System w/Device Kit Use as [...] mellitus due to underlying condition ([facility]),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),Right knee pain, unspecified chronicity,Heart failure, systolic, due to CAD ([facility]) Bariatric heavy duty walker- 2 wheels- please document patient's weight at 308 1 Each Active DIURETIC TITRATION PLANIndications:Hear t failure, systolic, due to CAD ([facility]) If no improvement on day 3, [...] 2, not at goal ([facility]),Diabetic polyneuropathy associated with type 1 diabetes [...] into each nostril daily.. 9.9 mL 10 022 Active Additional Information Patient not taking.Reported on [...] Capsule Active Vitamin D (Ergocalciferol) 1.25 MG (98278 UT) Oral Capsule (Drisdol) TAKE ONE CAPSULE BY MOUTH EVERY WEEK 12 Capsule Active DAPTOmycin 500 MG Intravenous Solution Reconstituted [...] needed for Pain, Severe. 60 Tablet Active Potassium Chloride Tiffanie ER 20 MEQ Oral Tablet Extended Release Take 1 Tablet by mouth in the morning and 1 Tablet before bedtime. 60 Tablet 2 024 2023 Disconti nued(Ref ill) oxyCODONE HCl 5 MG Oral Tablet (Oxy IR) Take 1 Tablet by mouth every 8 hours as needed for Pain, Severe. 12 Tablet 024 2023 Disconti nued(Pat ient preferen ce/disco ntinuati on) oxyCODONE HCl 10 MG Oral Tablet (Roxicodone)Indicati ons:Diabetic polyneuropathy associated with type 2 diabetes mellitus (HCC),S/P BKA (below knee amputation) unilateral, left (HCC),Leg wound, right, initial encounter Take 1 Tablet by mouth every 6 hours as needed for Pain, Severe. 20 Tablet 024 2023 Disconti nued(Ref ill) documented as of this encounter (statuses as of 03/10/2024) Active Problems Problem Noted Date Diagnosed Date [...] (07/04/2019): Added automatically from request for surgery [id number] 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 [...] as of this encounter (statuses as of 03/10/2024) Resolved Problems Problem Noted Date Diagnosed Date [...] Silent myocardial infarction 03/23/2013 11/08/2018 Accelerate Clinical Trial*[id number] 01/24/2013 05/16/2015 Overview (01/24/2013): ACCELERATE STUDY. Project # [id number], STAMPING DIE TRY OUT WORKER: Ben Hoover MD. CRC: DEBORAH Back. SUMMARY: To test the hypothesis that Evacetrapib 130 mg, in comparison to placebo, reduces the risk of major adverse coronary events in high-risk vascular disease patients. CONTACTS: During normal business hours, contact study staff at ; after hours Car [place] via the [facility] hospital safety pin assembling machine operator [phone]. 24-hour Global Study Helpline: [phone]. Lipid levels should not be ordered/obtained while [...] 250 mg, 2) gemfibrozil with a potent [id number]. NINA on CPAP 06/28/2012 01/31/2020 Overview (06/28/2012): [...] as of this encounter (statuses as of 03/10/2024) Immunizations Name Administration Dates Next Due COVID-19 [...] Sign Reading Time Taken Comments Blood Pressure 130/70 02/29/2024 11:46 AM EST Pulse 79 02/29/2024 11:46 AM EST Temperature 37.1 C (98.7 F) 02/29/2024 11:[address] Respiratory Rate 18 02/29/2024 11:46 AM EST Oxygen Saturation 96% 02/29/2024 11:46 AM EST Inhaled Oxygen Concentration - - [...] Progress Notes * Kwame Parks MD - 02/29/2024 11:53 AM EST Subjective Ben Lyle is a 58 year old male. Chief Complaint Patient presents with Hospital Follow-Up Pt here today due to hospital discharge follow up Hospital Follow-Up HPI: Here for hospital discharge f/u Admission Jan 15 Discharge feb 20 Dx : s/p rt calcaneal amputation Rt heel osteomyelitis Chronic DM , insulin dependent Taking daptomycin + meropenem for 4 wks Through PICC , needs to f/u with ID Gait difficulty chronic, non ambulatory , using a scooter which is very old and broken Needs a power wheelchair - ordered today S/p below knee lt leg amputation Now s/p rt partial foot amputation - non weight bearing Pain - needs oxycodone, 10 mg 4 times per day - temporary use, 2 wks refill today Might refill 1-2 more times Also pt needs a hospital bed - pt needs a frequent positioning to avoid bed sores, also for his amputated foot condition With current his bed, he is not able to do so S/p amputations , not able to move easily Type 2 DM , insulin pump, oral meds Poor diet , neuropathy , diabetic angiopathy Should f/u with MTM Also known chronic extensive heart , cardiovascular conditions Hypertension, CKD, ischemic CMP, s/p AICD, afib, hx of left DTV, on coumadin , CAD , HL Taking medication as prescribed, see med list. No medication side effects noted. Advised patient tokeep healthy life style, regular exercise with good diet, antony. low sodium diet. And also check BP at home too. Denies associated chest discomfort, chest heaviness, chest pressure, chest tightness, SOB Leg swelling, chronic Low potassium PMH: Patient Active Problem List Diagnosis DM, UNCONTROLLED, TYPE II Diabetic polyneuropathy ([facility]) Testicular hypofunction ED Dyslipidemia, goal LDL below 100 Obesity hypoventilation syndrome ([facility]) Vitamin D deficiency CHR ISCHEMIC HRT OLD ANTERIOR INFARCT AGE INDETERMINATE S/P SURGERY FOR SHOULDER IMPINGEMENT SYNDROME 11/04 ASTHMA, IN REMISSION Ischemic cardiomyopathy Automatic implantable cardioverter-defibrillator in situ Microalbuminuria Hypothyroidism HTN, goal below 140/90 Heart failure, systolic, due to CAD ([facility]) Family history of pancreatic cancer Kidney disease, chronic, stage III (GFR 30-59 ml/min) ([facility]) History of osteomyelitis PHT (pulmonary hypertension) ([facility]) Insomnia Type 2 diabetes mellitus ([facility]) Non-pressure chronic ulcer of unspecified part of right lower leg with unspecified severity ([facility]) VT (ventricular tachycardia) ([facility]) NINA (obstructive sleep apnea) Atrial fibrillation ([facility]) Insulin pump status S/P BKA (below knee amputation) unilateral, left ([facility]) Major depressive disorder, recurrent, mild ([facility]) Type 2 diabetes mellitus with diabetic peripheral angiopathy without gangrene ([facility]) Paroxysmal atrial fibrillation ([facility]) Insufficient social support Anemia Anxiety Atherosclerosis of coronary artery Chronic diastolic heart failure ([facility]) Chronic pain Closed fracture of fifth metatarsal bone Cor pulmonale, chronic ([facility]) Depression Diabetic neuropathy ([facility]) Diabetic retinopathy ([facility]) Edema Elevated troponin level History of diabetic ulcer of foot Numbness Peripheral arterial disease ([facility]) Right heart failure (secondary to left heart failure) ([facility]) ICD (implantable cardioverter-defibrillator) battery depletion Statin intolerance Status post shoulder surgery Venous stasis ulcer ([facility]) Mass of leg, right Other persistent atrial fibrillation ([facility]) Body mass index (BMI) of 50.0 to 59.9 in adult (HCC) Morbid (severe) obesity due to excess calories (HCC) 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) Current Outpatient Medications Medication Sig Dispense Refill FLS EnergyTOUCH LANCETS MISC 3 Box Dosing Unit 1 Nitroglycerin 0.4 MG Sublingual Tablet Sublingual Place under the tongue every 5 minutes as needed.Up to 3 in 15 minutes. 25 Tab 11 Glucose Blood (FLS EnergyTOUCH VERIO) STRP USE TO TEST BLOOD GLUCOSE [...] Tablet by mouth daily. 100 Tablet 3 Albuterol Sulfate 108 (90 Base) [...] into each nostril daily.. 9.9 mL 10 Mupirocin 2 % External [...] Avoid on open wounds 60 mL 5 Potassium Chloride Tiffanie ER 20 MEQ Oral Tablet Extended Release Take 1 Tablet by mouth in the morning and 1 Tablet before bedtime. 60 Tablet 2 metOLazone 2.5 MG Oral Tablet (Zaroxolyn) Take 1 Tablet by mouth once a day on Thursday, Thursday, and Thursday only. 90 Tablet 1 Warfarin Sodium 2 MG Oral Tablet (Coumadin) TAKE ONE TO TWO TABLETS (2MG TO 4MG) BY MOUTH DAILY INSTRUCTED BY COUMADIN CLINIC 180 Tablet 3 Metoclopramide HCl 10 MG Oral Tablet (Reglan) Take 1 Tablet by mouth 3 times a day as needed for Nausea. 30 minutes before meals 30 Tablet 0 Metoprolol Succinate ER 50 [...] Capsule 0 Vitamin D (Ergocalciferol) 1.25 MG (32411 UT) Oral Capsule (Drisdol) TAKE ONE CAPSULE BY MOUTH EVERY WEEK 12 Capsule 0 DAPTOmycin 500 MG Intravenous Solution Reconstituted (Cubicin) Administer 500 mg intravenously in the morning. Meropenem 1 GM Intravenous Solution Reconstituted (Merrem) Administer 1,000 mg intravenously in themorning and 1,000 mg at noon and 1,000 mg before bedtime. oxyCODONE HCl 10 MG Oral Tablet (Roxicodone) Take 1 Tablet by mouth every 6 hours as needed for Pain, Severe. 60 Tablet 0 Magnesium Oxide 400 MG Capsule Take 1 Cap by mouth daily. 30 Cap 5 Metoprolol Succinate ER 25 MG Oral Tablet Extended Release 24 Hour (Toprol XL) Take 1 Tablet by mouth 2 times a day. (Patient not taking: Reported on 02/29/2024) 200 Tablet 3 Atorvastatin Calcium 80 MG Oral Tablet (Lipitor) Take 1 Tablet by mouth in the morning. (Patient taking differently: Take 1 Tablet by mouth in the morning. Will resume on 03/03.) 100 Tablet 3 DULoxetine HCl 20 MG Oral Capsule Delayed Release Particles (duloxetine) Take 1 Capsule by mouth inthe morning. Do not cut, crush or chew. (Patient not taking: Reported on 02/22/2024) 90 Capsule 2 No current facility-administered medications for this visit. Past Medical History: Diagnosis Date Acquired hypothyroidism Acute deep vein thrombosis (DVT) of proximal vein of left lower extremity ([facility]) 07/03/2020 Acute hypoxemic respiratory failure ([facility]) 07/29/2021 Acute renal failure superimposed on chronic kidney disease ([facility]) 07/29/2021 CHATO (acute kidney injury) ([facility]) 01/04/2017 Last Assessment & Plan: Sec to Cor pulmonale and v tach-- improving --avoid nephrotoxic agents --IVF's held d/t fluid overload - willmonitor closely --daily BMP Amputated great toe of right foot ([facility]) 06/28/2019 Atrial fibrillation ([facility]) Bacteremia due to group B Streptococcus 07/29/2021 Cellulitis 07/29/2021 Cellulitis of right lower extremity 11/09/2009 DM type 2, not at goal ([facility]) Dyslipidemia, goal LDL below 70 HFrEF (heart failure with reduced ejection fraction) (HCC) HTN, goal below 140/80 Hyperglycemia due to type 2 diabetes mellitus (HCC) 07/29/2021 Hypokalemia 07/29/2021 Hypomagnesemia 07/29/2021 Insulin pump status 01/11/2021 Adams fracture 07/29/2021 Malfunction of implantable defibrillator ventricular (ICD) lead 07/29/2021 ME (myocardial infarction) ([facility]) Non-healing surgical wound 07/29/2021 NINA treated with BiPAP Osteomyelitis of left foot (HCC) 01/08/2021 Pneumonia due to COVID-19 virus 07/29/2021 Right foot ulcer (HCC) 12/05/2019 SARS-CoV-2 positive 07/29/2021 Stage 3b chronic kidney disease (HCC) 03/05/2020 Per CKD protocol Ventricular tachycardia ([facility]) 06/09/2019 Volume overload 07/29/2021 Volume overload state of heart 07/29/2021 Past Surgical History: Procedure Laterality Date AMPUTATION OF LOWER LEG Left 01/15/2021 AMPUTATION LEG THROUGH TIBIA AND FIBULA performed by Heron Hill MD at OR [facility] BONE DEBRIDEMENT, FIRST 20 CM2 Left 12/05/2019 DEBRIDEMENT SKIN SUBCUTANEOUS TISSUE MUSCLE AND BONE performed by Heron Hill MD at OR [facility] COLONOSCOPY, DIAGNOSTIC (RECTUM) 04/03/2015 TVA polyps, diverticulosis, repeat 3 yrs/[facility] COLONOSCOPY, DIAGNOSTIC (RECTUM) 11/13/2015 adenomatous polyp, diverticulosis, repeat 3 yrs/[facility] COLONOSCOPY, DIAGNOSTIC (RECTUM) 06/01/2020 adenomatous polyps, diverticulosis, poor prep, repeat 3 yrs / [facility] CORONARY ANGIOGRAPHY W/LEFT HEART CATH 09/25/2010 CORONARY ANGIOGRAPHY W/LEFT HEART CATH performed by SUSAN SPENCER at [facility]ARD[facility]S [facility] CORONARY ANGIOGRAPHY W/LEFT HEART CATH Right 06/09/2019 CORONARY ANGIOGRAPHY W/LEFT HEART CATH performed by Isra Melton DO at [facility] EGD, FLEXIBLE, DIAGNOSTIC 04/03/2015 reflux esophagitis/[facility] ELECTROPHYSIOLOGY EVAL & ABLATE VENTRICULAR TACH Bilateral 11/07/2019 VT ISCHEMIC EPS AND CATHETER ABLATION performed by Genesis Skaggs MD at [facility] INFORMATION 04/27/1980 tmj INSERT/REPLACE DEFIBRILLATOR W/TRANSVERSE LEAD(S) 06/01/2012 NON-THOR ICD LEADS AND GENERATOR IMPLANT performed by Dipika Medina IV, MD at [facility] IR VENOUS ACCESS NON-MEDIPORT 06/13/2019 MISCELLANEOUS ORDER ([facility] ONLY) 04/27/2009 Left shoulder decompression for impingement [facility] LASER SURGERY OF EYE Bilateral 2020 REMOVE [...] file Social History Narrative 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 Social Determinants of Health Financial Resource Strain: Low Risk (09/08/2023) Financial [...] Stability Do you currently live in a jail or have no steady place to sleep [...] chills, diaphoresis, fever and unexpected weight change. HENT: Negative for hearing loss. Eyes: Negative for visual disturbance. Respiratory: Negative for cough, chest tightness and wheezing. Cardiovascular: Positive for leg swelling. Negative for chest pain and palpitations. Gastrointestinal: Negative for abdominal distention, abdominal pain, nausea and vomiting. Endocrine: Negative. Genitourinary: Negative for hematuria. Musculoskeletal: Positive for arthralgias and gait problem (amputation, lt below knee, rt heel amputation). Skin: Positive for wound. Neurological: Positive for numbness. Negative for dizziness, weakness, light- headedness and headaches. Psychiatric/Behavioral: Positive for dysphoric mood and sleep disturbance. Negative for agitation and behavioral problems. The patient is nervous/anxious. Objective BP 130/70 | Pulse 79 | Temp 37.1 C (98.7 F) (Tympanic) | Resp 18 | SpO2 96% Physical Exam Constitutional: General: He is not in acute distress. Appearance: Normal appearance. He is obese. He is not ill-appearing, toxic- appearing or diaphoretic. HENT: Head: Normocephalic and atraumatic. Nose: Nose normal. Eyes: Extraocular Movements: Extraocular movements intact. Cardiovascular: Rate and Rhythm: Normal rate and regular rhythm. Pulses: Normal pulses. Comments: AICD Pulmonary: Effort: Pulmonary effort is normal. No respiratory distress. Breath sounds: Normal breath sounds. No stridor. No wheezing, rhonchi or rales. Chest: Chest wall: No tenderness. Musculoskeletal: General: Tenderness and deformity (lt below knee amputation) present. Cervical back: Normal range of motion. Right lower leg: Edema present. Left lower leg: Edema present. Neurological: General: No focal deficit present. Mental Status: He is alert and oriented to person, place, and time. Gait: Gait abnormal. Psychiatric: Behavior: Behavior normal. Comments: Depression ASSESSMENT/PLAN: Osteomyelitis of right foot, unspecified type ([facility]) (Primary) - DURABLE MEDICAL EQUIPMENT - INFECTIOUS DISEASE REFERRAL OP S/P foot surgery, right - DURABLE MEDICAL EQUIPMENT S/P BKA (below knee amputation) unilateral, left (HCC) - DURABLE MEDICAL EQUIPMENT - oxyCODONE HCl 10 MG Oral Tablet (Roxicodone); Take 1 Tablet by mouth every 6 hours as needed for Pain, Severe. Peripheral arterial disease ([facility]) - DURABLE MEDICAL EQUIPMENT Type 2 diabetes mellitus with diabetic peripheral angiopathy without gangrene, with long-term current use of insulin ([facility]) - DURABLE MEDICAL EQUIPMENT Non-pressure chronic ulcer of right lower leg, unspecified ulcer stage ([facility]) Morbid (severe) obesity due to excess calories ([facility]) Insulin pump status Hospital discharge follow-up - DISCH MED RECON CUR MED LIS Diabetic polyneuropathy associated with type 2 diabetes mellitus ([facility]) - oxyCODONE HCl 10 MG Oral Tablet (Roxicodone); Take 1 Tablet by mouth every 6 hours as needed for Pain, Severe. Leg wound, right, initial encounter - oxyCODONE HCl 10 MG Oral Tablet (Roxicodone); Take 1 Tablet by mouth every 6 hours as needed for Pain, Severe. Obesity hypoventilation syndrome (HCC) Stage 3b chronic kidney disease (HCC) Heart failure, systolic, due to CAD (HCC) Acquired hypothyroidism Proliferative diabetic retinopathy of both eyes with macular edema associated with type 2 diabetes mellitus (HCC) Deep vein thrombosis (DVT) of proximal vein of left lower extremity, unspecified chronicity (HCC) Insufficient social support 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) Gait difficulty Follow Up: Return in about 3 months (around 05/31/2024) for Clinic Visit. | For: Clinic Visit | Check-out note: Schedule with coumadin clinic ( it might on mar 08) DME for power wheelchair order With PCP for routine ID referral And schedule with his cardio Cont ABx Diet change F/u with MTM Fu with cardio Cont meds DME order Kwame Parks MD documented in this encounter Nursing Notes * Cassi Toro LPN - 02/29/2024 11:35 AM EST Chief Complaint Patient presents with Hospital Follow-Up Pt here today due to hospital discharge follow up documented in this encounter Plan of Treatment Upcoming Encounters Date Type Department Care Team (Late st Contact Info) Description 03/21/2024 7:05 AM EST Laboratory Lab Mobile Phlebotomy [place] [address] [place] [address] [facility] Home Draw [address] [place] [address] 03/22/2024 6:00 AM EST Anticoagulation [facility], Renee Wise [address] [place] [address] [place] [address] [facility] [place] [address] 03/22/2024 2:30 PM EST Telemedicine [facility], [place] [address] [place] [address] Carolee Manriquez PA-C [address] [place] [address] Edna Baum, [facility] [employer] [address] [place] [address] 05/11/2024 2:00 PM EST Office Visit Infectious Disease [facility] [address] [place] [address] Sherry Roy MD [address] [place] [address] 07/11/2024 9:50 AM EDT Office Visit [facility] [address] [place] [address] Sherry Maya, [address] [place] [address] Scheduled Procedures Name Priority Associated Diagnoses Date/Ti me COLONOSCOPY FLEXIBLE PROXIMAL DIAGNOSTIC Recall History of colon polyps Scheduled Referrals Name Type Priority Associated Diagnoses Orde r Schedule INFECTIOUS DISEASE REFERRAL OP Referral Within 10 days (routine) Osteomyelitis of right foot, unspecified type (HCC) Ordered: 02/29/2024 Health Maintenance Due Date Last Done Comments Cologuard 11/26/2008 Fecal Occult Blood Test 11/26/2008 Sigmoidoscopy 11/26/2008 Colonoscopy 06/01/2023 06/01/2020, 10/25, 04/03/2015 Colorectal Cancer Screening 06/01/2023 COVID-19 Vaccine ( season) 2023 05/15/2021, 05/15/2021, 10/04/2020, Additional history exists Influenza Vaccine (FLU shot) (#1) 2023 01/23/2023, 01/23/2023, 02/12/2022, Additional history exists CKD PHOS USE SMARTSET 08195 06/03/2024 020 10/2023, 11/06/2021, 09/12/2020, Additional history exists HbA1c 06/04/2024 12/03/2023, 07/26, 03/27/2023, Additional history exists Albumin/Creatinine Ratio 06/19/2024 024, 08/15/2022, 11/06/2021, Additional history exists GFR 09/04/2024 03/07/2024, 02/25, 02/28/2024, Additional history exists Depression Monitoring 09/07/2024 09/08/2023 TSH 02/25/2025 02/26/2024, 06/2023, 09/24/2023, Additional history exists CKD HGB USE SMARTSET 00304 03/07/202503/07, 03/07/2024, 02/28/2024, Additional history exists DTap/Tdap [...] as of this encounter Visit Diagnoses Diagnosis Osteomyelitis of right foot, unspecified type (HCC)- Primary S/P foot surgery, right S/P BKA (below knee amputation) unilateral, left (HCC) Peripheral arterial disease (HCC) Peripheral vascular disease, unspecified Type 2 diabetes mellitus with diabetic peripheral angiopathy without gangrene, with long-term current use of insulin (HCC) Non-pressure chronic ulcer of right lower leg, unspecified ulcer stage (HCC) Morbid (severe) obesity due to excess calories (HCC) Insulin pump status Hospital discharge follow-up Other follow-up examination Diabetic polyneuropathy associated with type 2 diabetes mellitus (HCC) Leg wound, right, initial encounter Obesity hypoventilation syndrome (HCC) Obesity hypoventilation syndrome Stage 3b chronic kidney disease (HCC) Heart failure, systolic, due to CAD (HCC) Unspecified systolic heart failure Acquired hypothyroidism Unspecified hypothyroidism Proliferative diabetic retinopathy of both eyes with macular edema associated with type 2 diabetes mellitus (HCC) Deep vein thrombosis (DVT) of proximal vein of left lower extremity, unspecified chronicity (HCC) Insufficient social support Other psychological or physical stress, not elsewhere classified 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) Gait difficulty Abnormality of gait documented in this encounter Advance Directives * [...] the patient have Health Care Power of Water Safety Instructor? Yes, not currently available * Full Code [...] Agents on File Name Relationship Healthcare Agent [facility] p Communication Omar Lyle Adult Child [facility] re Agent [facility] Agent Care Teams Glassware Finisher Relationship Specialty Start Date End Date Sherry Maya DO [address] [place] [address] PCP - General Family Medicine 11/12/11 documented as of this encounter"
--- OUTSIDE RECORDS SUMMARY | 2024-05-24 05:26 | External Medical Summary | Summary of Care ---
Author Name Unknown Organization [facility] Address [address] [place] [address] Phone [phone] Care Team Providers Care Materials Management Manager Name Role Phone Sherry Maya DO Primary Care Provider + [phone] Encounter Details Date Type Department Care Team (Late st Contact Info) Description 03/11/2024 Telephone [facility] [address] [place] [address] Sherry Maya DO [address] [place] [address] Allergies Active Allergy Reactions Criticality Noted Date Comments Benzonatate 12/08/2016 choking Keyanna Pedraza Other (Please comment) High 04/10/20 09 Choking documented as of this encounter (statuses as of 03/11/2024) Medications ONETOUCH LANCETS MISCIndications:DM type 2, not [...] 24 Active Vitamin D (Ergocalciferol) 1.25 MG (47807 UT) Oral Capsule (Drisdol) TAKE ONE CAPSULE [...] as of this encounter (statuses as of 03/11/2024) Active Problems Problem Noted Date Diagnosed Date [...] (07/04/2019): Added automatically from request for surgery [id number] 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 Project # [id number], COPYRIGHT MANAGER: Ben Hoover MD. CRC: DEBORAH Back. SUMMARY: To test the hypothesis that Evacetrapib 130 mg, in comparison to placebo, reduces the risk of major adverse coronary events in high-risk vascular disease patients. CONTACTS: During normal business hours, contact study staff at ; after hours Wired Music Operator via the [facility] hospital pipe bending machine operator [phone]. 24-hour Global Study Helpline: [phone]. Lipid levels should not be ordered/obtained while this subject is in the Accelerate study. Lipids are being managed in a blinded fashion. If lipid levels are inadvertently obtained, it is important that test results are NOT provided to the patient, study doctor, community service coordinator, or other study team members. Restricted meds while in the study: 1) niacin > 250 mg, 2) gemfibrozil with a potent [id number]. NINA on CPAP 06/28/2012 01/31/2020 Overview (06/28/2012): [...] as of this encounter (statuses as of 03/11/2024) Immunizations Name Administration Dates Next Due COVID-19 [...] EST ----- ----- Message ----- From: Interface, Template Worker Sent: 03/09/2024 6:55 AM EST To: Anthony Figueroa MD documented in this encounter Plan of Treatment Upcoming Encounters Date Type Department Care Team (Late st Contact Info) Description 03/21/2024 7:05 AM EST Laboratory Lab Mobile Phlebotomy [facility] [place] [address] [facility], Gml Mobile Home Draw [facility] [address] 03/22/2024 6:00 AM EST Anticoagulation Centralized Clinical Pharmacy Services, [address] [place] [address] [place] [address] 03/22/2024 2:30 PM EST Telemedicine [facility], [place] [address] [place] [address] Carolee Manriquez PA-C [address] [place] [address] Edna Baum, Community Health Radar Technician [address] [place] [address] 05/11/2024 2:00 PM EST Office Visit Infectious Disease [facility] [place] [address] [place] [address] Sherry Roy MD [address] [place] [address] 07/11/2024 9:50 AM EDT Office Visit [facility] [address] [place] [address] Sherry Maya, DO [address] [place] [address] Scheduled Procedures Name Priority Associated Diagnoses Date/Ti [...] Additional history exists CKD PHOS USE SMARTSET 42543 06/03/202410/2023, 11/06/2021, 09/12/2020, Additional history exists HbA1c 06/04/2024 12/03/2023, 07/26, 03/27/2023, Additional history exists Albumin/Creatinine Ratio 06/19/2024 024, 08/15/2022, 11/06/2021, Additional history exists GFR 09/04/2024 03/07/2024, 02/25, 02/28/2024, Additional history exists Depression Monitoring 09/07/2024 09/08/2023 TSH 02/25/2025 02/26/2024, 06/2023, 09/24/2023, Additional history exists CKD HGB USE SMARTSET 24743 03/07/202503/07, 03/07/2024, 02/28/2024, Additional history exists DTap/Tdap [...] the patient have Health Care Power of Outside Operator? Yes, not currently available * Full [...] Communication Omar Lyle Adult Child [facility] re Agent Xi Mckeont Adult [facility] Care Agent Care Teams Materials Management Manager Relationship Specialty Start Date End Date Sherry Maya DO [address] [facility] [place] [address] PCP - General Family Medicine 11/12/11 documented as of this encounter
--- OUTSIDE RECORDS SUMMARY | 2024-05-24 05:26 | External Medical Summary | Summary of Care ---
Author Name Unknown Organization [facility] Address [address] [facility] [place] [address] Phone [phone] Care Team Providers Care Correctional Security Officer Name Role Phone Sherry Maya DO Primary Care Provider + [phone] Reason for Visit * Reason Onset Date Comments Test Results 03/11/2024 Encounter Details Date Type Department Care Team (Late st Contact Info) Description 03/11/2024 Telephone [facility] [address] [place] [address] Sherry Maya DO [address] [place] [address] Test Results Allergies Active Allergy Reactions Criticality Noted Date [...] eart failure, systolic, due to CAD ([facility]),Automatic implantable cardioverter-defibri llator in situ,Chronic ischemic heart disease,Ischemic cardiomyopathy Take 1 Cap by mouth daily. 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 Project # [id number], BUCKLE STRINGER: Ben Hoover MD. CRC: DEBORAH Back. SUMMARY: To test the hypothesis that Evacetrapib 130 mg, in comparison to placebo, reduces the risk of major adverse coronary events in high-risk vascular disease patients. CONTACTS: During normal business hours, contact study staff at ; after hours Construction Checker via the [facility] hospital gear lapping machine operator [phone]. 24-hour Global Study Helpline: [phone]. Lipid levels should not be ordered/obtained while this subject is in the Accelerate study. Lipids are being managed in a blinded fashion. If lipid levels are inadvertently obtained, it is important that test results are NOT provided to the patient, study doctor, organ recovery coordinator, or other study team members. Restricted meds while in the study: 1) niacin > 250 mg, 2) gemfibrozil with a potent [id number]. NINA on CPAP 06/28/2012 01/31/2020 Overview (06/28/2012): [...] encounter Miscellaneous Notes * Telephone Encounter - Eloise Vanegas LPN - 03/14/2024 2:28 PM EST Pt is returning phone call. Reports that he takes Potassium 20 meq twice a day. One in the morning and one in the evening. Has not missed any doses. Please advise. * Telephone Encounter - Cassi Toro LPN [...] EST ----- ----- Message ----- From: Interface, Miniature Set Constructor Sent: 03/09/2024 6:55 AM EST To: Anthony Figueroa MD documented in this encounter Plan of Treatment Upcoming Encounters Date Type Department Care Team (Late st Contact Info) Description 03/22/2024 6:00 AM EST Anticoagulation Centralized Clinical Pharmacy Services, Renee Wise [address] [place] [address] [place] [address] [place] [address] 03/22/2024 2:30 PM EST Telemedicine [facility], [place] [address] [place] [address] Carolee Manriquez PA-C [address] [place] [address] Edna Baum, Community Health Server Software Engineer [address] [place] [address] 03/23/2024 7:10 AM EST Laboratory Lab Mobile Phlebotomy [facility] [address] [facility] [place] [address] Mvmg, Gml Mobile Home Draw [address] [facility] [place] [address] 05/11/2024 2:00 PM EST Office Visit Infectious Disease [facility] [address] [facility] [place] [address] Sherry Roy MD [address] [place] [address] 07/11/2024 9:50 AM EDT Office Visit [facility] [address] [place] [address] Sherry Maya, DO [address] [place] [address] Scheduled Procedures Name Priority Associated Diagnoses Date/Ti [...] Additional history exists CKD PHOS USE SMARTSET 20920 06/03/2024 02/0 10/2023, 11/06/2021, 09/12/2020, Additional history exists HbA1c 06/04/2024 12/03/2023, 07/26, 03/27/2023, Additional history exists Albumin/Creatinine Ratio 06/19/2024 024, 08/15/2022, 11/06/2021, Additional history exists GFR 09/04/2024 03/07/2024, 02/25, 02/28/2024, Additional history exists Depression Monitoring 09/07/2024 09/08/2023 TSH 02/25/2025 02/26/2024, 06/2023, 09/24/2023, Additional history exists CKD HGB USE SMARTSET 80913 03/07/202503/07, 03/07/2024, 02/28/2024, Additional history exists DTap/Tdap [...] the patient have Health Care Power of Newspaper Vendor? Yes, not currently available * Full Code [...] Relationshi p Communication Omar Lyle Adult Child [facility] re Agent Xi Lyle Adult Child Health Care Agent Care Teams Correctional Security Officer Relationship Specialty Start Date End Date Sherry Maya DO [address] [place] [address] PCP - General Family Medicine 11/12/11 documented as of this encounter
--- OUTSIDE RECORDS SUMMARY | 2024-05-24 05:26 | External Medical Summary | Summary of Care ---
Author Name Unknown Organization [facility] Address [address] [facility] [address] Phone [phone] Care Team Providers Care Car Rental Sales Assistant Name Role Phone Sherry Maya DO Primary Care Provider + [phone] Reason for Visit * Reason Onset Date Comments Forms Request 03/10/2024 Sukumar umaña Encounter Details Date Type Department Care Team ([facility] Contact Info) Description 03/10/2024 Telephone [facility] [address] [place] [address] Sherry Maya DO [address] [place] [address] Forms [facility] Allergies Active Allergy Reactions Criticality Noted Date Comments Benzonatate 12/08/2016 choking Keyanna Pedraza Other (Please comment) High 04/10/20 09 Choking documented as of this encounter (statuses as of 03/10/2024) Medications ONETOUCH LANCETS MISCIndications:DM type 2, not at goal ([facility]) 3 Box Dosing Unit 1 04/17/20 15 Active Nitroglycerin 0.4 MG Sublingual Tablet Sublingual Place under the tongue every 5 minutes as needed. Up to 3 in 15 minutes. 25 Tab 11 04/17/20 15 Active Magnesium Oxide 400 MG CapsuleIndications:H eart failure, systolic, due to CAD ([facility]),Automatic implantable cardioverter-defibri llator in situ,Chronic ischemic heart disease,Ischemic cardiomyopathy Take 1 Cap by mouth daily. 30 Cap 5 03/16/20 17 Active Glucose Blood (All Copy ProductsTOUCH VERIO) STRP USE TO TEST BLOOD GLUCOSE 8 TIMES A DAY 800 Strip 3 03/18/20 19 Active Insulin Aspart 100 UNIT/ML Injection Solution Inject under the skin. FOR USE IN PUMP Active [employer] Verio Flex System w/Device Kit Use as [...] Active WalkerIndications:Os teomyelitis of foot, left, acute ([facility]),Diabetic polyneuropathy associated with diabetes mellitus due to underlying condition ([facility]),Ulcer of right foot with necrosis of muscle ([facility]),Right knee pain, unspecified chronicity,Heart failure, systolic, due to CAD ([facility]) Bariatric heavy duty walker- 2 wheels- please document patient's weight at 308 1 Each 02/08/20 Active DIURETIC TITRATION PLANIndications:Hear t failure, systolic, due to CAD ([facility]) If no improvement on day [...] below 100,DM type 2, not at goal ([facility]),Diabetic polyneuropathy associated with type 1 diabetes mellitus ([facility]),HTN, goal below 130/80,Abnormal electrocardiogram Take [...] 24 Active Vitamin D (Ergocalciferol) 1.25 MG (90971 UT) Oral Capsule (Drisdol) TAKE ONE CAPSULE [...] (07/04/2019): Added automatically from request for surgery [id number] 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 Project # [id number], OUTPATIENT PHARMACY MANAGER: Ben Hoover MD. CRC: DEBORAH Back. SUMMARY: To test the hypothesis that Evacetrapib 130 mg, in comparison to placebo, reduces the risk of major adverse coronary events in high-risk vascular disease patients. CONTACTS: During normal business hours, contact study staff at ; after hours Floral Artist via the [facility] hospital condenser operator [phone]. 24-hour Global Study Helpline: [phone]. Lipid levels should not be ordered/obtained while this subject is in the Accelerate study. Lipids are being managed in a blinded fashion. If lipid levels are inadvertently obtained, it is important that test results are NOT provided to the patient, study doctor, recruitment coordinator, or other study team members. Restricted meds while in the study: 1) niacin > 250 mg, 2) gemfibrozil with a potent [id number]. NINA on CPAP 06/28/2012 01/31/2020 Overview (06/28/2012): [...] Telephone Encounter - Cassi Toro LPN - 03/10/2024 4:26 PM EST Received Fax for BFPROVIDERS: Dr. Kwame Parks FORM received from [facility] home [facility] and FAXED documented in this encounter Plan of Treatment Upcoming Encounters Date Type Department Care Team (Late st Contact Info) Description 03/21/2024 7:05 AM EST Laboratory Lab Mobile Phlebotomy [facility] [address] [facility] [place] [address] Mvmg, Gml Mobile Home Draw [address] [facility] [place] [address] 03/22/2024 6:00 AM EST Anticoagulation Centralized Clinical Pharmacy Services, [address] [place] [address] [place] [address] 03/22/2024 2:30 PM EST Telemedicine [facility], [place] [address] [place] [address] Carolee Manriquez PA-C [address] [place] [address] Edna Baum, Community Health Carton Maker [address] [place] [address] 05/11/2024 2:00 PM EST Office Visit Infectious Disease [facility] [place] [address] [facility] [place] [address] Sherry Roy MD [address] [place] [address] 07/11/2024 9:50 AM EDT Office Visit [facility] [address] [facility] [address] Sherry Maya, DO [address] [place] [address] Scheduled Procedures Name Priority Associated Diagnoses Date/Ti [...] Additional history exists CKD PHOS USE SMARTSET 98648 06/03/2024 020 10/2023, 11/06/2021, 09/12/2020, Additional history exists HbA1c 06/04/2024 12/03/2023, 07/26, 03/27/2023, Additional history exists Albumin/Creatinine Ratio 06/19/202406/19/2 024, 08/15/2022, 11/06/2021, Additional history exists GFR 09/04/2024 03/07/2024, 02/25, 02/28/2024, Additional history exists Depression Monitoring 09/07/2024 09/08/2023 TSH 02/25/2025 02/26/2024, 06/2023, 09/24/2023, Additional history exists CKD HGB USE SMARTSET 36290 03/07/202503/07, 03/07/2024, 02/28/2024, Additional history exists DTap/Tdap [...] the patient have Health Care Power of Cottage Parent? Yes, not currently available * Full Code [...] Agents on File Name Relationship Healthcare Agent [facility] p Communication Maurymemo Lyle Adult [facility] re Agent Xi Valdo Adult [facility] Care Agent Care Teams Car Rental Sales Assistant Relationship Specialty Start Date End Date Sherry Maya DO [address] [place] [address] PCP - General Family Medicine 11/12/11 documented as of this encounter
--- OUTSIDE RECORDS SUMMARY | 2024-05-24 05:26 | External Medical Summary | Summary of Care ---
Author Name Unknown Organization [facility] Address [address] [facility] [place] [address] Phone [phone] Care Team Providers Care Industrial Hygiene Manager Name Role Phone Sherry Maya DO Primary Care Provider [phone] Reason for Visit * Reason Comments Dosage Adjustment Via Phone (anticoag Cl inic) Encounter Details Date Type Department Care Team (Late st Contact Info) Description 03/10/2024 6:00 AM EST Anticoagulation Centralized Clinical Pharmacy Services, Renee Wise [address] [place] [address] [place] [address] [facility], [address] [place] [address] Anticoagulation management encounter* Allergies Active Allergy Reactions Criticality Noted Date Comments Benzonatate 12/08/2016 choking Keyanna Pedraza Other (Please comment) High 04/10/20 09 Choking documented as of this encounter (statuses as of 03/10/2024) Medications ONETOUCH LANCETS MISCIndications:DM type 2, not at goal ([facility]) 3 Box Dosing Unit 1 [...] Cap 5 03/16/20 17 Active Glucose Blood (TruVitalsTOUCH VERIO) STRP USE TO TEST BLOOD GLUCOSE 8 TIMES A DAY 800 Strip 3 03/18/20 19 Active Insulin Aspart 100 UNIT/ML Injection Solution Inject under the skin. 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 Project # [id number], HEALTHCARE MANAGEMENT: Ben Hoover MD. CRC: DEBORAH Back. SUMMARY: To test the hypothesis that Evacetrapib 130 mg, in comparison to placebo, reduces the risk of major adverse coronary events in high-risk vascular disease patients. CONTACTS: During normal business hours, contact study staff at ; after hours Multiple Spindle Router Operator via the [facility] hospital magnaflux operator [phone]. 24-hour Global Study Helpline: [phone]. Lipid levels should not be ordered/obtained while this subject is in the Accelerate study. Lipids are being managed in a blinded fashion. If lipid levels are inadvertently obtained, it is important that test results are NOT provided to the patient, study doctor, early childhood services coordinator, or other study team members. Restricted meds while in the study: 1) niacin > 250 mg, 2) gemfibrozil with a potent [id number]. NINA on CPAP 06/28/2012 01/31/2020 Overview (06/28/2012): [...] documented in this encounter Progress Notes * Fabienne Chan CPhT - 03/10/2024 9:42 AM EST Contacts Contact Date/Time Type Contact Phone/Fax 03/10/2024 09:39 AM EST Phone (Outgoing) Ben Lyle (Self) [phone] (M) Spoke to Patient Subjective Patient Findings [...] date communicated as noted by Pharmacist: Yes FABIENNE CHAN CPhT 03/10/2024, 9:42 AM * Jaimee Gandhi RPh - 03/10/2024 9:02 AM EST Coumadin Clinic (region specific) Objective Current Warfarin Dose As of 03/10/2024 Warfarin maintenance plan: 2 mg (2 mg x 1) every Mon, Sat; 4 mg (2 mg x 2) all other days INR Result As of 03/10/2024 INR goal: 2.0-3.0 INR used for dosin.9 (03/09/2024) Assessment & Plan Warfarin Plan As of 03/10/2024 Full warfarin instructions: 03/10: Hold; 03/11: Hold; Otherwise 2 mg every Mon, Sat; 4 mg all otherdays Next INR check: 03/21/2024 Repeat PT/INR in 1.5 week(s) Weekly dose: not changed Additional Dosing Information: Description L MTuTh- AMIO (patient has 5mg and 1mg tabs) Tech to contact patient with dose instructions as noted. Jaimee Gandhi RPh 03/10/2024, 9:03 AM documented in this encounter Plan of Treatment Upcoming Encounters Date Type Department Care Team (Late st Contact Info) Description 03/22/2024 6:00 AM EST Anticoagulation Centralized Clinical Pharmacy Services, Renee Wise [address] [place] [address] [place] [address] [facility], [address] [place] [address] 03/22/2024 2:30 PM EST Telemedicine [facility], [place] [address] [place] [address] Carolee Manriquez PA-C [address] [place] [address] Edna Baum, Community Health Provider Relations Coordinator [address] [place] [address] 05/11/2024 2:00 PM EST Office Visit Infectious Disease [facility] [address] [place] [address] Sherry Roy MD [address] [place] [address] 07/11/2024 9:50 AM EDT Office Visit [facility] [address] [place] [address] Sherry Maya, DO [address] [place] [address] Scheduled Procedures Name Priority Associated Diagnoses Date/Ti [...] Additional history exists CKD PHOS USE SMARTSET 53322 06/03/2024 02/0 10/2023, 11/06/2021, 09/12/2020, Additional history exists HbA1c 06/04/2024 12/03/2023, 07/26, 03/27/2023, Additional history exists Albumin/Creatinine Ratio 06/19/2024 024, 08/15/2022, 11/06/2021, Additional history exists GFR 09/04/2024 03/07/2024, 02/25, 02/28/2024, Additional history exists Depression Monitoring 09/07/2024 09/08/2023 TSH 02/25/2025 02/26/2024, 06/2023, 09/24/2023, Additional history exists CKD HGB USE SMARTSET 77565 03/07/202503/07, 03/07/2024, 02/28/2024, Additional history exists DTap/Tdap [...] the patient have Health Care Power of Truck Loader And Unloader? Yes, not currently available * Full Code [...] Relationshi p Communication Omar Lyle Adult Child [facility] Health Ca re Agent Xi Lyle Adult Child Health Care Agent Care Teams Industrial Hygiene Manager Relationship Specialty Start Date End Date Sherry Maya DO [address] [place] [address] PCP - General Family Medicine 11/12/11 documented as of this encounter
--- OUTSIDE RECORDS SUMMARY | 2024-05-24 05:27 | External Medical Summary | Summary of Care ---
Author Name Unknown Organization [facility] Address [address] [facility] [place] [address] Phone [phone] Care Team Providers Care Manager Automotive Name Role Phone Sherry Maya DO Primary Care Provider + [phone] Reason for Visit * Reason Onset Date Comments Advice 03/09/2024 Encounter Details Date Type Department Care Team (Late st Contact Info) Description 03/09/2024 Telephone [facility] [address] [place] [address] Sherry Maya DO [address] [place] [address] Advice Allergies Active Allergy Reactions Criticality Noted Date Comments Benzonatate 12/08/2016 choking Keyanna Pedraza Other (Please comment) High 04/10/20 09 Choking documented as of this encounter (statuses as of 03/09/2024) Medications ONETOUCH LANCETS MISCIndications:DM type 2, not [...] Cap 5 03/16/20 17 Active Glucose Blood (PayNearMeTOUCH VERIO) STRP USE TO TEST BLOOD GLUCOSE [...] mouth daily. With food. 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 Project # [id number], URBAN RENEWAL MANAGER: Ben Hoover MD. CRC: DEBORAH Back. SUMMARY: To test the hypothesis that Evacetrapib 130 mg, in comparison to placebo, reduces the risk of major adverse coronary events in high-risk vascular disease patients. CONTACTS: During normal business hours, contact study staff at ; after hours Smoke Inspector via the [facility] hospital mva operator [phone]. 24-hour Global Study Helpline: [phone]. Lipid levels should not be ordered/obtained while this subject is in the Accelerate study. Lipids are being managed in a blinded fashion. If lipid levels are inadvertently obtained, it is important that test results are NOT provided to the patient, study doctor, shift coordinator, or other study team members. Restricted meds while in the study: 1) niacin > 250 mg, 2) gemfibrozil with a potent [id number]. NINA on CPAP 06/28/2012 01/31/2020 Overview (06/28/2012): [...] as of this encounter (statuses as of 03/09/2024) Immunizations Name Administration Dates Next Due COVID-19 [...] encounter Miscellaneous Notes * Telephone Encounter - Li Jimenez OSA - 03/09/2024 12:06 PM EST Caller requesting the following information to be faxed: Name/Company of caller: Joyce Nayak Information requested to be faxed: Script for electric hospital bed Fax number: [phone] Attention to Name/Company: [facility] Any additional information?: No documented in this encounter Plan of Treatment Upcoming Encounters Date Type Department Care Team (Late st Contact Info) Description 03/10/2024 6:00 AM EST Anticoagulation Centralized Clinical Pharmacy Services, Renee Wise [address] [place] [address] [place] [address] [facility], [address] [place] [address] 03/22/2024 2:30 PM EST Telemedicine [facility], [place] [address] [place] [address] Carolee Manriquez PA-C [address] [place] [address] Edna Baum, Community Health Automatic Beam Warper Tender [address] [place] [address] 05/11/2024 2:00 PM EST Office Visit Infectious Disease [facility] [address] [facility], [place] [address] Sherry Roy MD [address] [place] [address] 07/11/2024 9:50 AM EDT Office Visit [facility] [address] [place] [address] Sherry Maya, DO [facility] [address] [place], [place] [id number] Scheduled Procedures Name Priority Associated Diagnoses Date/Ti [...] Additional history exists CKD PHOS USE SMARTSET 30723 06/03/2024 0210/2023, 11/06/2021, 09/12/2020, Additional history exists HbA1c 06/04/2024 12/03/2023, 07/26, 03/27/2023, Additional history exists Albumin/Creatinine Ratio 06/19/2024 024, 08/15/2022, 11/06/2021, Additional history exists GFR 09/04/2024 03/07/2024, 02/25, 02/28/2024, Additional history exists Depression Monitoring 09/07/2024 09/08/2023 TSH 02/25/2025 02/26/2024, 06/2023, 09/24/2023, Additional history exists CKD HGB USE SMARTSET 40464 03/07/202503/07, 03/07/2024, 02/28/2024, Additional history exists DTap/Tdap [...] the patient have Health Care Power of Flexible Nanny? Yes, not currently available * Full Code [...] on File Name Relationship Healthcare Agent [facility] p Communication Omar Lyle Adult Child [facility] Ca re Agent Xi Lyle Adult Child Health Care Agent Care Teams Manager Automotive Relationship Specialty Start Date End Date Sherry Maya DO [address] [place] [facility] [place] [address] PCP - General Family Medicine 11/12/11 documented as of this encounter
--- OUTSIDE RECORDS SUMMARY | 2024-05-24 05:27 | External Medical Summary | Summary of Care ---
Author Name Unknown Organization [facility] Address [address] [facility] [place] [address] Phone [phone] Care Team Providers Care Psych Arnp Name Role Phone Sherry Maya DO Primary Care Provider + [phone] Reason for Visit * Reason Onset Date Comments Order Request 03/09/2024 [facility] Encounter Details Date Type Department Care Team (Late st Contact Info) Description 03/09/2024 Telephone [facility] [address] [place] [address] Sherry Maya DO [address] [place] [address] Order Request ([facility]) Allergies Active Allergy Reactions Criticality Noted Date Comments Benzonatate 12/08/2016 choking Keyanna Pedraza Other (Please comment) High 04/10/20 09 Choking documented as of this encounter (statuses as of 03/09/2024) Medications ONETOUCH LANCETS MISCIndications:DM type 2, not at goal ([facility]) 3 Box Dosing Unit 1 04/17/20 [...] Cap 5 03/16/20 17 Active Glucose Blood (ViZn Energy SystemsTOUCH VERIO) STRP USE TO TEST BLOOD GLUCOSE 8 TIMES A DAY 800 Strip 3 03/18/20 19 Active Insulin Aspart 100 UNIT/ML Injection Solution Inject under the skin. 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 Project # [id number], TECHNICAL ADMINISTRATIVE ASSISTANT: Ben Hoover MD. CRC: DEBORAH Back. SUMMARY: To test the hypothesis that Evacetrapib 130 mg, in comparison to placebo, reduces the risk of major adverse coronary events in high-risk vascular disease patients. CONTACTS: During normal business hours, contact study staff at ; after hours Air Conditioning Engineer via the [facility] hospital nicking machine operator [phone]. 24-hour Global Study Helpline: [phone]. Lipid levels should not be ordered/obtained while this subject is in the Accelerate study. Lipids are being managed in a blinded fashion. If lipid levels are inadvertently obtained, it is important that test results are NOT provided to the patient, study doctor, trauma coordinator, or other study team members. Restricted meds while in the study: 1) niacin > 250 mg, 2) gemfibrozil with a potent [id number]. NINA on CPAP 06/28/2012 01/31/2020 Overview (06/28/2012): [...] MDV , IM, 0.5 mL (Fluzone) 03/15/2014,02/09/2013,01/12/2012,04/28,05/07/2010,01/05/2009,03/13/20 03/15/2015 Seasonal Influenza, PF, 6 M & [...] Telephone Encounter - Cassi Toro LPN - 03/09/2024 11:01 AM EST Received Fax for BFPROVIDERS: Dr. Sherry Maya PT PLAN OF CARE/EVALUATION received from [facility] and FAXED documented in this encounter Plan of Treatment Upcoming Encounters Date Type Department Care Team (Late st Contact Info) Description 03/10/2024 6:00 AM EST Anticoagulation Centralized Clinical Pharmacy Services, [facility] [place] [address] [place] [address] [place] [address] [facility], [address] [place] [address] 03/22/2024 2:30 PM EST [facility]icine [facility] [place], [place] [address] [place] [address] Carolee Manriquez PA-C [address] [place] [address] Edna Baum, Community Health Bank Guard [address] [place] [address] 05/11/2024 2:00 PM EST Office Visit Infectious Disease [facility] [address] [place] [address] Sherry Roy MD [address] [place] [address] 07/11/2024 9:50 AM EDT Office Visit [facility] [address] [place] [address] Sherry Maya, [address] [place] [address] Scheduled Procedures Name Priority Associated Diagnoses Date/Ti [...] Additional history exists CKD PHOS USE SMARTSET 70481 06/03/202410/2023, 11/06/2021, 09/12/2020, Additional history exists HbA1c 06/04/2024 12/03/2023, 07/26, 03/27/2023, Additional history exists Albumin/Creatinine Ratio 06/19/2024 024, 08/15/2022, 11/06/2021, Additional history exists GFR 09/04/2024 03/07/2024, 02/25, 02/28/2024, Additional history exists Depression Monitoring 09/07/2024 09/08/2023 TSH 02/25/2025 02/26/2024, 06/2023, 09/24/2023, Additional history exists CKD HGB USE SMARTSET 29848 03/07/202503/07, 03/07/2024, 02/28/2024, Additional history exists DTap/Tdap [...] the patient have Health Care Power of Home Visitor? Yes, not currently available * Full Code [...] Name Relationship Healthcare Agent Relationshi p Communication Tynnia Valdo Adult Child [facility] Health Ca re Agent Xi Lyle Adult Child Health Care Agent Care Teams Psych Arnp Relationship Specialty Start Date End Date Sherry Maya DO [address] [place], [place] [id number] PCP - General Family Medicine 11/12/11 documented as of this encounter
--- OUTSIDE RECORDS SUMMARY | 2024-05-24 05:27 | External Medical Summary | Summary of Care ---
Author Name Unknown Organization [facility] Address [address] [facility] [place] [address] Phone [phone] Care Team Providers Care Practical Nursing Faculty Name Role Phone Sherry Maya DO Primary Care Provider + [phone] Reason for Visit * Reason Onset Date Comments Advice 03/09/2024 Encounter Details Date Type Department Care Team (Late st Contact Info) Description 03/09/2024 Telephone [facility] [address] [place] [address] Sherry Maya DO [address] [place] [address] Advice Allergies Active Allergy Reactions [...] to CAD ([facility]),Automatic implantable cardioverter-defibri llator in situ,Chronic ischemic heart disease,Ischemic cardiomyopathy Take 1 Cap by mouth daily. 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 Project # [id number], TEMPLATE CHECKER: Ben Hoover MD. CRC: DEBORAH Back. SUMMARY: To test the hypothesis that Evacetrapib 130 mg, in comparison to placebo, reduces the risk of major adverse coronary events in high-risk vascular disease patients. CONTACTS: During normal business hours, contact study staff at ; after hours Show Horse Driver via the [facility] hospital cocoa press operator [phone]. 24-hour Global Study Helpline: [phone]. Lipid levels should not be ordered/obtained while this subject is in the Accelerate study. Lipids are being managed in a blinded fashion. If lipid levels are inadvertently obtained, it is important that test results are NOT provided to the patient, study doctor, community education coordinator, or other study team members. Restricted meds while in the study: 1) niacin > 250 mg, 2) gemfibrozil with a potent [id number]. NINA on CPAP 06/28/2012 01/31/2020 Overview (06/28/2012): [...] Telephone Encounter - Nieves Baum LPN - 03/09/2024 3:15 PM EST Order sent * Telephone Encounter - Li Jimenez OSA - 03/09/2024 12:06 PM EST Caller requesting the following information to be faxed: Name/Company of caller: [employer] Information requested to be faxed: Script for electric hospital bed Fax number: [phone] Attention to Name/Company: [facility] Any additional information?: No documented in this encounter Plan of Treatment Upcoming Encounters Date Type Department Care Team (Late st Contact Info) Description 03/10/2024 6:00 AM EST Anticoagulation Centralized Clinical Pharmacy Services, Renee Wise [address] [place] [address] [place] [address] [facility], [address] [place] [address] 03/22/2024 2:30 PM EST Telemedicine [facility], [place] [address] [place] [address] Carolee Manriquez PA-C [address] [place] [address] Edna Baum, Community Health [place] [address] [place] [address] 05/11/2024 2:00 PM EST Office Visit Infectious Disease [facility] [place] 200 [place] [address] Sherry Roy MD [address] [place], [place] [address] 07/11/2024 9:50 AM EDT Office Visit [facility] [address] [place] [address] Sherry Maya, DO [address] [place] [address] Scheduled Procedures Name Priority Associated Diagnoses Date/Ti [...] Additional history exists CKD PHOS USE SMARTSET 17501 06/03/202410/2023, 11/06/2021, 09/12/2020, Additional history exists HbA1c 06/04/2024 12/03/2023, 07/26, 03/27/2023, Additional history exists Albumin/Creatinine Ratio 06/19/202406/19/2 024, 08/15/2022, 11/06/2021, Additional history exists GFR 09/04/2024 03/07/2024, 02/25, 02/28/2024, Additional history exists Depression Monitoring 09/07/2024 09/08/2023 TSH 02/25/2025 02/26/2024, 1006/2023, 09/24/2023, Additional history exists CKD HGB USE SMARTSET 46912 03/07/202503/07, 03/07/2024, 02/28/2024, Additional history exists DTap/Tdap [...] the patient have Health Care Power of Cement Sack Breaker? Yes, not currently available * Full Code [...] Agents on File Name Relationship Healthcare Agent [facility] p Communication Omar Ontiverosrett Adult Child [facility] re Agent [facility] Agent Care Teams Practical Nursing Faculty Relationship Specialty Start Date End Date Sherry Maya DO [address] [place] [address] PCP - General Family Medicine 11/12/11 documented as of this encounter
--- OUTSIDE RECORDS SUMMARY | 2024-05-24 05:27 | External Medical Summary | Summary of Care ---
Author Name Unknown Organization [facility] Address [address] [place] [place] [address] Phone [phone] Care Team Providers Care Voltmeter Operator Name Role Phone Sherry Maya DO Primary Care Provider + [phone] Reason for Visit * Reason Onset Date Comments Order Request 03/09/2024 [facility] Encounter Details Date Type Department Care Team (Late st Contact Info) Description 03/09/2024 Telephone [facility] [address] [place] [address] Sherry Maya DO [address] [place] [address] Order Request ([facility]... Allergies Active Allergy Reactions Criticality Noted Date [...] Cap 5 03/16/20 17 Active Glucose Blood (SunshineTOUCH VERIO) STRP USE TO TEST BLOOD GLUCOSE 8 TIMES A DAY 800 Strip 3 03/18/20 19 Active Insulin Aspart 100 UNIT/ML Injection Solution Inject under the skin. FOR USE IN PUMP Active Soylent CorporationToShareSquare Verio Flex System w/Device Kit Use as [...] teomyelitis of foot, left, acute ([facility]),Diabetic polyneuropathy associated with diabetes mellitus due to underlying condition ([facility]),Ulcer of right foot with necrosis of muscle ([facility]),Right knee pain, unspecified chronicity,Heart failure, systolic, [...] 2, not at goal ([facility]),Diabetic polyneuropathy associated with type 1 diabetes mellitus ([facility]),HTN, goal below 130/80,Abnormal electrocardiogram Take 1 [...] 24 Active Vitamin D (Ergocalciferol) 1.25 MG (36299 UT) Oral Capsule (Drisdol) TAKE ONE CAPSULE [...] (07/04/2019): Added automatically from request for surgery [id number] 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 Project # [id number], STAGECRAFT PROFESSOR: Ben Hoover MD. CRC: DEBORAH Back. SUMMARY: To test the hypothesis that Evacetrapib 130 mg, in comparison to placebo, reduces the risk of major adverse coronary events in high-risk vascular disease patients. CONTACTS: During normal business hours, contact study staff at ; after hours Correctional Supervisor Lieutenant via the [facility] boiler control room operator [phone]. 24-hour Global Study Helpline: [phone]. Lipid levels should not be ordered/obtained while this subject is in the Accelerate study. Lipids are being managed in a blinded fashion. If lipid levels are inadvertently obtained, it is important that test results are NOT provided to the patient, study doctor, retail coordinator, or other study team members. Restricted meds while in the study: 1) niacin > 250 mg, 2) gemfibrozil with a potent [id number]. NINA on CPAP 06/28/2012 01/31/2020 Overview (06/28/2012): [...] Author Yes 01/08/2021 1:48 AM JAXT Gaurav Rded RN documented as of this encounter Mental Status * Because of a physical, mental, or emotional condition, do you have serious difficulty concentrating, remembering, or making decisions? (5 years old or older) Answer Entry Date Author No 01/08/2021 1:48 AM EDT Ivania, Mat thew W, RN documented in this encounter Miscellaneous Notes * Telephone Encounter - Cassi Toro LPN - 03/09/2024 11:10 AM EST Received Fax for BFPROVIDERS: Dr. Sherry Maya ORDER received from [facility] and FAXED documented in this encounter Plan of Treatment Upcoming Encounters Date Type Department Care Team (Late st Contact Info) Description 03/10/2024 6:00 AM EST Anticoagulation Centralized Clinical Pharmacy Services, [facility] [place] [address] [place] [address] [place] [address] [facility], [address] [place] [address] 03/22/2024 2:30 PM EST Telemedicine [facility] [place] [address] [place] [address] Carolee Manriquez PA-C [address] [place] [address] Edna Baum, Community Health Sprinkling Truck Driver [address] [place] [address] 05/11/2024 2:00 PM EST Office Visit Infectious Disease [facility] [place] [address] [place] [address] Sherry Roy MD [address] [place] [address] 07/11/2024 9:50 AM EDT Office Visit [facility] [address] [place] [address] Sherry Maya, DO [address] [place] [address] Scheduled Procedures Name Priority Associated Diagnoses Date/Ti [...] Additional history exists CKD PHOS USE SMARTSET 09385 06/03/2024 0210/2023, 11/06/2021, 09/12/2020, Additional history exists HbA1c 06/04/2024 12/03/2023, 07/26, 03/27/2023, Additional history exists Albumin/Creatinine Ratio 06/19/2024 024, 08/15/2022, 11/06/2021, Additional history exists GFR 09/04/2024 03/07/2024, 02/25, 02/28/2024, Additional history exists Depression Monitoring 09/07/2024 09/08/2023 TSH 02/25/2025 02/26/2024, 1006/2023, 09/24/2023, Additional history exists CKD HGB USE SMARTSET 49405 03/07/202503/07, 03/07/2024, 02/28/2024, Additional history exists DTap/Tdap [...] the patient have Health Care Power of Efficiency Analyst? Yes, not currently available * Full [...] Agents on File Name Relationship Healthcare Agent [facility] p Communication Omar Lyle Adult Child [facility] Agent Xi Lyle Adult Child Health Care Agent Care Teams Voltmeter Operator Relationship Specialty Start Date End Date Sherry Maya DO [address] [place] [address] PCP - General Family Medicine 11/12/11 documented as of this encounter
--- OUTSIDE RECORDS SUMMARY | 2024-05-24 05:27 | External Medical Summary | Summary of Care ---
Author Name Unknown Organization [facility] Address [address] [facility] [place] [address] Phone [phone] Care Team Providers Care Electrical Engineering Technician Name Role Phone Sherry Maya DO Primary Care Provider + [phone] Reason for Visit * Reason Onset Date Comments Home Health 12/09/2023 Encounter Details Date Type Department Care Team (Late st Contact Info) Description 12/09/2023 Telephone [facility] [address] [place] [address] Sherry Maya DO [address] [place] [address] Home Health Allergies Active Allergy Reactions Criticality Noted Date Comments Benzonatate 12/08/2016 choking Keyanna Pedraza Other (Please comment) High 04/10/20 09 Choking documented as of this encounter (statuses as of 03/09/2024) Medications ONETOUCH LANCETS MISCIndications:DM type 2, not at goal ([facility]) 3 Box Dosing Unit 1 04/17/20 15 Active Nitroglycerin 0.4 MG Sublingual Tablet Sublingual Place under the tongue every 5 minutes as needed. Up to 3 in 15 minutes. 25 Tab 11 04/17/20 15 Active Magnesium Oxide 400 MG CapsuleIndications:He art failure, systolic, due to CAD ([facility]),Automatic implantable cardioverter-defibril lator in situ,Chronic ischemic heart disease,Ischemic cardiomyopathy Take 1 Cap by mouth daily. 30 Cap 5 03/16/20 17 Active Glucose Blood (Eye-QTOUCH VERIO) STRP USE TO TEST BLOOD GLUCOSE [...] with diabetes mellitus due to underlying condition ([facility]),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),Right knee pain, unspecified chronicity,Heart failure, systolic, due to CAD ([facility]) Bariatric heavy duty walker- 2 wheels- please document patient's weight at 308 1 Each 02/08/20 Active DIURETIC TITRATION PLANIndications:Heart failure, systolic, due to CAD ([facility]) If no improvement on day [...] (07/04/2019): Added automatically from request for surgery [id number] 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 [...] Silent myocardial infarction 03/23/2013 11/08/2018 Accelerate Clinical Trial*[id number] 01/24/2013 05/16/2015 Overview (01/24/2013): ACCELERATE STUDY. Project # [id number], AGED OR DISABLED CARER: Ben Hoover MD. CRC: DEBORAH Back. SUMMARY: To test the hypothesis that Evacetrapib 130 mg, in comparison to placebo, reduces the risk of major adverse coronary events in high-risk vascular disease patients. CONTACTS: During normal business hours, contact study staff at ; after hours Internet Marketing Manager via the [facility] ncr operator [phone]. 24-hour Global Study Helpline: [phone]. Lipid levels should not be ordered/obtained while this subject is in the Accelerate study. Lipids are being managed in a blinded fashion. If lipid levels are inadvertently obtained, it is important that test results are NOT provided to the patient, study doctor, care coordinator, or other study team members. Restricted meds while in the study: 1) niacin > 250 mg, 2) gemfibrozil with a potent [id number]. NINA on CPAP 06/28/2012 01/31/2020 Overview (06/28/2012): [...] on file Are you (or your family) marquze eless or worried that you might be [...] encounter Miscellaneous Notes * Telephone Encounter - JoseReny LPN - 12/09/2023 2:51 PM EDT Admission/Start of Care Admission/Start of Care: Jaimee ACUNA, Calling from: [facility] Patient was Admitted to: [facility] , for: cellulitis from 11/26 to 12/04 [facility]erral [facility] by: [facility] Referral received for: Intermediate, PT, OT, and Home Health Aide Planned start of care date:Yes, Date 12/09/23 Start of care completed on: 12/09/23 Report/Concerns of:None Symptoms: none Vitals: T 98.6 P 78 RR 20 BP 122/68 SP O2 99 Lung sounds clear Weight unable Blood sugar 159 on a pump Narrative: Jaimee calling from [facility]. Opened patient today and is asking for start ofcare orders. Unsure yet when next visit will be. They will call with any updates or additional concerns from the upcoming visit. Last Office Visit: 09/24/2023 Has patient been scheduled or seen in the office for a follow up visit: Yes- on12/18/[address] Maya for video appt. Email confirmed. Advised that orders will be signed by Dr. Maya and to fax to the office for signature. Call back Jaimee with advice or orders at [phone] Please fax orders to [phone] documented in this encounter Plan of Treatment Upcoming Encounters Date Type Department Care Team (Late st Contact Info) Description 03/10/2024 6:00 AM EST Anticoagulation Centralized Clinical Pharmacy Services, [facility] [address] [place] [address] [place] [address] [facility], [address] [place] [address] 03/22/2024 2:30 PM EST Telemedicine [facility], [place] [address] [place] [address] Carolee Manriquez PA-C [address] [place] [address] Edna Baum, Community Health Dependency Counselor [address] [place] [address] 05/11/2024 2:00 PM EST Office Visit Infectious Disease [facility] [place] [address] [place] [address] Sherry Roy MD [address] [place] [address] 07/11/2024 9:50 AM EDT Office Visit [facility] [address] [place] [address] Sherry Maya, DO [address] [place] [address] Scheduled Procedures Name Priority Associated Diagnoses Date/Ti [...] Additional history exists CKD PHOS USE SMARTSET 76012 06/03/2024 02/0 10/2023, 11/06/2021, 09/12/2020, Additional history exists HbA1c 06/04/2024 12/03/2023, 07/26, 03/27/2023, Additional history exists Albumin/Creatinine Ratio 06/19/2024 024, 08/15/2022, 11/06/2021, Additional history exists GFR 09/04/2024 03/07/2024, 02/25, 02/28/2024, Additional history exists Depression Monitoring 09/07/2024 09/08/2023 TSH 02/25/2025 02/26/2024, 06/2023, 09/24/2023, Additional history exists CKD HGB USE SMARTSET 33959 03/07/202503/07, 03/07/2024, 02/28/2024, Additional history exists DTap/Tdap [...] patient have Health Care Power of Sales And Marketing Associate? Yes, not currently available * Full Code [...] Healthcare Agent [facility] Darrellelijah Lyle Adult Child [facility] [place] re Agent Xi Mckeont Adult Child Health Care Agent Care Teams Electrical Engineering Technician Relationship Specialty Start Date End Date Sherry Maya DO [address] [place] [address] PCP - General Family Medicine 11/12/11 documented as of this encounter
--- OUTSIDE RECORDS SUMMARY | 2024-05-24 05:28 | External Medical Summary | Summary of Care ---
Author Name Unknown Organization [facility] Address [address] [facility] [place] [address] Phone [phone] Care Team Providers Care Facility Maintenance Supervisor Name Role Phone Sherry Maya DO Primary Care Provider + [phone] Reason for Visit * Reason Onset Date Comments Home Health 03/04/2024 Encounter Details Date Type Department Care Team (Late st Contact Info) Description 03/04/2024 Telephone [facility] [address] [place] [address] Sherry Maya DO [address] [place] [address] Home Health Allergies Active Allergy Reactions Criticality Noted Date Comments Benzonatate 12/08/2016 choking Keyanna Pedraza Other (Please comment) High 04/10/20 09 Choking documented as of this encounter (statuses as of 03/08/2024) Medications ONETOUCH LANCETS MISCIndications:DM type 2, not at goal ([facility]) 3 Box Dosing Unit 1 04/17/20 15 Active Nitroglycerin 0.4 MG Sublingual Tablet Sublingual Place under the tongue every 5 minutes as needed. Up to 3 in 15 minutes. 25 Tab 11 04/17/20 15 Active Magnesium Oxide 400 MG CapsuleIndications:H eart failure, systolic, due to CAD ([facility]),Automatic implantable cardioverter-defibri llator in situ,Chronic ischemic heart disease,Ischemic cardiomyopathy Take 1 Cap by mouth daily. 30 Cap 5 03/16/20 17 Active Glucose Blood ([employer]TOUCH VERIO) STRP USE TO TEST BLOOD [...] with diabetes mellitus due to underlying condition ([facility]),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),Right knee pain, unspecified chronicity,Heart failure, systolic, due to CAD ([facility]) Bariatric heavy duty walker- 2 wheels- please document patient's weight at 308 1 Each 02/08/20 Active DIURETIC TITRATION PLANIndications:Hear t failure, systolic, due to CAD ([facility]) If no improvement on day [...] 24 Active Vitamin D (Ergocalciferol) 1.25 MG (97155 UT) Oral Capsule (Drisdol) TAKE ONE CAPSULE [...] as of this encounter (statuses as of 03/08/2024) Active Problems Problem Noted Date Diagnosed Date [...] (07/04/2019): Added automatically from request for surgery [id number] 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 [...] as of this encounter (statuses as of 03/08/2024) Resolved Problems Problem Noted Date Diagnosed Date [...] Silent myocardial infarction 03/23/2013 11/08/2018 Accelerate Clinical Trial*[id number] 01/24/2013 05/16/2015 Overview (01/24/2013): ACCELERATE STUDY. Project # [id number], OUTSOLE SPLICER: Ben Hoover MD. CRC: DEBORAH Back. SUMMARY: To test the hypothesis that Evacetrapib 130 mg, in comparison to placebo, reduces the risk of major adverse coronary events in high-risk vascular disease patients. CONTACTS: During normal business hours, contact study staff at ; after hours Merchandise Appraiser via the [facility] hospital gas burner operator [phone]. 24-hour Global Study Helpline: [phone]. Lipid levels should not be ordered/obtained while this subject is in the Accelerate study. Lipids are being managed in a blinded fashion. If lipid levels are inadvertently obtained, it is important that test results are NOT provided to the patient, study doctor, dock coordinator, or other study team members. Restricted meds while in the study: 1) niacin > 250 mg, 2) gemfibrozil with a potent [id number]. NINA on CPAP 06/28/2012 01/31/2020 Overview (06/28/2012): [...] as of this encounter (statuses as of 03/08/2024) Immunizations Name Administration Dates Next Due COVID-19 [...] encounter Miscellaneous Notes * Telephone Encounter - Debbi Barnes OSA - 03/08/2024 3:29 PM EST Lori called from [facility] and stated that she will like for the Dr to send in a Rx Power wheel chair. Pt is non moved cause of his wound. They will need a copy of his insurance and Dem. Please fax order to [phone] * Telephone Encounter - Sherry Maya DO - 03/04/2024 2:12 PM EST I am not sure what referral to place, can you send to case management and see? * Telephone Encounter - Lori Mcclain LPN - 03/04/2024 1:49 PM EST Ani form [facility] calling to request social welfare research worker referral to assist in getting mental health resources. documented in this encounter Plan of Treatment Upcoming Encounters Date Type Department Care Team (Late st Contact Info) Description 03/09/2024 7:20 AM EST Laboratory Lab [facility] [address] [place] [address] [facility], Gml Mobile Home Draw [address] [place] [address] 03/10/2024 6:00 AM EST Anticoagulation Centralized Clinical Pharmacy Services, [facility] [address] [place] [address] [place] [address] [facility] [place] [address] 03/22/2024 2:30 PM EST Telemedicine [facility], [address] [place] [address] Carolee Manriquez PA-C [address] [place] [address] Edna Baum, Community Health Senior Application Software Engineer [address] [place] [address] 05/11/2024 2:00 PM EST Office Visit Infectious Disease [facility] [address] [place] [address] Sherry Roy MD [address] [place] [address] 07/11/2024 9:50 AM EDT Office Visit [facility] [address] [place] [address] Sherry Maya, [address] [place] [address] Scheduled Procedures Name Priority Associated Diagnoses Date/Ti [...] Additional history exists CKD PHOS USE SMARTSET 69379 06/03/2024 02/0 10/2023, 11/06/2021, 09/12/2020, Additional history exists HbA1c 06/04/2024 12/03/2023, 07/26, 03/27/2023, Additional history exists Albumin/Creatinine Ratio 06/19/2024 024, 08/15/2022, 11/06/2021, Additional history exists GFR 09/04/2024 03/07/2024, 06/2023, 02/26/2024, Additional history exists Depression Monitoring 09/07/2024 09/08/2023 TSH 02/25/2025 02/26/2024, 06/2023, 09/24/2023, Additional history exists CKD HGB USE SMARTSET 21816 03/07/202503/07, 02/28/2024, 02/26/2024, Additional history exists DTap/Tdap Vaccines (3 - [...] the patient have Health Care Power of Sewing Machine Tester? Yes, not currently available * Full Code [...] File Name Relationship [facility] Omar Lyle Adult Child [facility] [place] re Agent Xi Lyle Adult Child Health Care Agent Care Teams Facility Maintenance Supervisor Relationship Specialty Start Date End Date Sherry Maya DO [address] [place] [address] PCP - General Family Medicine 11/12/11 documented as of this encounter
--- OUTSIDE RECORDS SUMMARY | 2024-05-24 05:28 | External Medical Summary | Summary of Care ---
Author Name Unknown Organization [facility] Address [address] [facility] [place] [address] Phone [phone] Care Team Providers Care Campground Attendant Name Role Phone Sherry Maya DO Primary Care Provider + [phone] Reason for Visit * Reason Onset Date Comments Home Health 03/04/2024 Encounter Details Date Type Department Care Team (Late st Contact Info) Description 03/04/2024 Telephone [facility] [address] [place] [address] Sherry Maya DO [address] [place] [address] Home Health Allergies Active Allergy [...] CapsuleIndications:H eart failure, systolic, due to CAD ([facility]),Automatic implantable cardioverter-defibri llator in situ,Chronic ischemic heart disease,Ischemic cardiomyopathy Take 1 Cap by mouth daily. 30 Cap 5 03/16/20 17 Active Glucose Blood (CogniSensTOUCH VERIO) STRP USE TO TEST BLOOD GLUCOSE [...] PLANIndications:Hear t failure, systolic, due to CAD ([facility] [...] 24 Active Vitamin D (Ergocalciferol) 1.25 MG (80016 UT) Oral Capsule (Drisdol) TAKE ONE CAPSULE [...] (07/04/2019): Added automatically from request for surgery [id number] 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 [...] Silent myocardial infarction 03/23/2013 11/08/2018 Accelerate Clinical Trial*[id number] 01/24/2013 05/16/2015 Overview (01/24/2013): ACCELERATE STUDY. Project # [id number], CHEMICAL ENGINEER: Ben Hoover MD. CRC: DEBORAH Back. SUMMARY: To test the hypothesis that Evacetrapib 130 mg, in comparison to placebo, reduces the risk of major adverse coronary events in high-risk vascular disease patients. CONTACTS: During normal business hours, contact study staff at ; after hours Welfare Project Manager via the [facility] skein winding operator [phone]. 24-hour Global Study Helpline: [phone]. Lipid levels should not be ordered/obtained while [...] 250 mg, 2) gemfibrozil with a potent [id number]. NINA on CPAP 06/28/2012 01/31/2020 Overview (06/28/2012): [...] 03/08/2024 3:29 PM EST Lori called from [facility] and stated that she will like for the Dr to send in a Rx Power wheel chair. Pt is non moved cause of his wound. They will need a copy of his insurance and Dem. Please fax order to [phone] * Telephone Encounter - Sherry Maya DO - 03/04/2024 2:12 PM EST I am not sure what referral to place, can you send to case management and see? * Telephone Encounter - Lori Mcclain LPN - 03/04/2024 1:49 PM EST Ani form [facility] calling to request social media editor referral to assist in getting mental health resources. documented in this encounter Plan of Treatment Upcoming Encounters Date Type Department Care Team (Late st Contact Info) Description 03/10/2024 6:00 AM EST Anticoagulation Centralized Clinical Pharmacy Services, [facility] [address] [place] [address] [place] [address] [place] [address] 03/22/2024 2:30 PM EST Telemedicine [facility], [place] [address] [place] [address] Carolee Manriquez PA-C [address] [place] [address] Edna Baum, Community Health Knockdown Man [address] [place] [address] 05/11/2024 2:00 PM EST Office Visit Infectious Disease [place] [address] [place] [address] Sherry Roy MD [address] [place] [address] 07/11/2024 9:50 AM EDT Office Visit [facility] [address] [place] [address] Sherry Maya, [address] [place] [address] Scheduled Procedures Name Priority Associated Diagnoses Date/Ti [...] Additional history exists CKD PHOS USE SMARTSET 46651 06/03/2024 02/0 10/2023, 11/06/2021, 09/12/2020, Additional history exists HbA1c 06/04/2024 12/03/2023, 07/26, 03/27/2023, Additional history exists Albumin/Creatinine Ratio 06/19/20242 024, 08/15/2022, 11/06/2021, Additional history exists GFR 09/04/2024 03/07/2024, 02/25, 02/28/2024, Additional history exists Depression Monitoring 09/07/2024 09/08/2023 TSH 02/25/2025 02/26/2024, 1006/2023, 09/24/2023, Additional history exists CKD HGB USE SMARTSET 61849 03/07/202503/07, 03/07/2024, 02/28/2024, Additional history exists DTap/Tdap [...] the patient have Health Care Power of Distance Education Coordinator? Yes, not currently available * Full Code [...] Agents on File Name Relationship Healthcare Agent [facility] Communication Omar Lyle Adult Child [facility] re Agent [facility] Care Agent Care Teams Campground Attendant Relationship Specialty Start Date End Date Sherry Maya DO [address] [place] [facility] [place] [address] PCP - General Family Medicine 11/12/11 documented as of this encounter
--- OUTSIDE RECORDS SUMMARY | 2024-05-24 05:28 | External Medical Summary | Summary of Care ---
Author Name Unknown Organization [facility] Address [address] [facility] [place] [address] Phone [phone] Care Team Providers Care Nail Tech Name Role Phone Sherry Maya DO Primary Care Provider + [phone] Encounter Details Date Type Department Care Team (Late st Contact Info) Description 03/09/2024 Orders Only Family Practice [facility] [address] [place] [address] Anthony Figueroa MD [address] [place] [address] Allergies Active Allergy Reactions Criticality Noted Date [...] with diabetes mellitus due to underlying condition ([facility]),Ulcer of right foot with necrosis of muscle ([facility]),Right knee pain, unspecified chronicity,Heart failure, systolic, due to CAD ([facility]) Bariatric heavy duty walker- 2 wheels- please document patient's weight at 308 1 Each 02/08/20 Active DIURETIC TITRATION PLANIndications:Hear t failure, systolic, due to CAD ([facility]) If no improvement on day [...] below 100,DM type 2, not at goal ([facility]),Diabetic polyneuropathy associated with type 1 diabetes [...] 24 Active Vitamin D (Ergocalciferol) 1.25 MG (57135 UT) Oral Capsule (Drisdol) TAKE ONE CAPSULE [...] (07/04/2019): Added automatically from request for surgery [id number] 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 [...] Silent myocardial infarction 03/23/2013 11/08/2018 Accelerate Clinical Trial*[id number] 01/24/2013 05/16/2015 Overview (01/24/2013): ACCELERATE STUDY. Project # [id number], ELECTRON BEAM WELDING MACHINE OPERATOR: Ben Hoover MD. CRC: DEBORAH Back. SUMMARY: To test the hypothesis that Evacetrapib 130 mg, in comparison to placebo, reduces the risk of major adverse coronary events in high-risk vascular disease patients. CONTACTS: During normal business hours, contact study staff at ; after hours Tile Sprayer via the [facility] hospital graining operator [phone]. 24-hour Global Study Helpline: [phone]. Lipid levels should not be ordered/obtained while this subject is in the Accelerate study. Lipids are being managed in a blinded fashion. If lipid levels are inadvertently obtained, it is important that test results are NOT provided to the patient, study doctor, office coordinator receptionist, or other study team members. Restricted meds while in the study: 1) niacin > 250 mg, 2) gemfibrozil with a potent [id number]. NINA on CPAP 06/28/2012 01/31/2020 Overview (06/28/2012): [...] 7:20 AM EST Laboratory Lab Mobile Phlebotomy [facility] [address] [facility] [place] [address] Mvmg, Gml Mobile Home Draw [address] [facility] [place] [address] Chronic deep vein thrombosis (DVT) of proximal vein of left lower extremity (HCC) 03/10/2024 6:00 AM EST Anticoagulation Centralized Clinical Pharmacy Services, Renee Wise [address] [place] [address] [place] [address] [facility], [facility] [address] [place] [address] 03/22/2024 2:30 PM EST Telemedicine [facility] [address] [place] [address] Carolee Manriquez PA-C [address] [place] [address] Edna Baum, Community Health Material Disposition Inspector [address] [place] [address] 05/11/2024 2:00 PM EST Office Visit Infectious Disease [facility] [address] [facility] [place] [address] Sherry Roy MD [address] [place] [address] 07/11/2024 9:50 AM EDT Office Visit [facility] [address] [place] [address] Sherry Maya, DO [address] [place] [address] Scheduled Procedures Name Priority Associated Diagnoses Date/Ti [...] Additional history exists CKD PHOS USE SMARTSET 50051 06/03/2024 020 10/2023, 11/06/2021, 09/12/2020, Additional history exists HbA1c 06/04/2024 12/03/2023, 07/26, 03/27/2023, Additional history exists Albumin/Creatinine Ratio 06/19/2024 024, 08/15/2022, 11/06/2021, Additional history exists GFR 09/04/2024 03/07/2024, 02/25, 02/28/2024, Additional history exists Depression Monitoring 09/07/2024 09/08/2023 TSH 02/25/2025 02/26/2024, 06/2023, 09/24/2023, Additional history exists CKD HGB USE SMARTSET 37712 03/07/202503/07, 03/07/2024, 02/28/2024, Additional history exists DTap/Tdap [...] Priority Date/Time Associated Diagnosis Comments CHEMISTRY-OUTSIDE Routine 03/07/2024 documented in this encounter Results * (ABNORMAL) CHEMISTRY-OUTSIDE (03/07/2024) Not all results display below - see scan for full detail OUTSIDE LAB (SEE SCANNED REPORT) Comment:SCAN INCLUDES: CBC, CMP, CRP, CK TOTAL CREATININE 1.41(A) 0.70 - 1.30 MG/DL OUTSIDE LAB (SEE SCANNED REPORT) EGFR 57(A) >=60 ML/MIN OUTSIDE LAB (SEE SCANNED REPORT) POTASSIUM 3.0(A) 3.5 - 5.1 MMOL/L OUTSIDE LAB (SEE SCANNED REPORT) GLUCOSE 85 70 - 110 MG/DL OUTSIDE LAB (SEE [...] LAB OUTSIDE LAB (SEE SCANNED REPORT) HEMOGLOBIN, G3R-NTCHHIF LAB OUTSIDE LAB (SEE SCANNED REPORT) PHOSPHORUS-OUTSID E LAB OUTSIDE LAB (SEE SCANNED REPORT) PTH-OUTSIDE LAB OUTS ADY LAB (SEE SCANNED REPORT) MICROALBUMIN RATIO-OUTSIDE LAB OUTSIDE LA B (SEE SCANNED REPORT) PROTEIN, UA-OUTSIDE LAB OUTSIDE LAB (SEE SCANNED REPORT) HGB 12.4(A) 13.5 - 18.0 GM/DL OUTSIDE LAB (SEE SCANNED REPORT) 03/07/2024 us Anthony Figueroa MD LABORATORY Final Res [...] the patient have Health Care Power of Eligibility Worker? Yes, not currently available * Full [...] Relationshi p Communication Omar Lyle Adult Child [facility] Health [place] re Agent Xi Mckeont Adult Child Health Care Agent Care Teams Nail Tech Relationship Specialty Start Date End Date Sherry Maya DO [address] [place] [address] PCP - General Family Medicine 11/12/11 documented as of this encounter
--- OUTSIDE RECORDS SUMMARY | 2024-05-24 05:28 | External Medical Summary ---
Author Name Unknown Address Unknown Organization K01:[facility] [address] [place] [address] Laboratory Report Ordering Provider Test Date Status ALIE ROPER 03/09/2024 07:33:00 Final Standing order for pt/inr. < br/>Please draw pt/inr every 1 to 4 weeks as requested
Results to [facility]

Warfarin Therapy
INR: 2.0-3.0 conventional anticoagulation
INR: 2.5-3.5 high intensity anticoagulation Observation Date Value Abnormality Reference (Units ) Status PT 03/09/2024 07:33:00 46.5 Above high normal 11 .6-15.2 (seconds) Final INR 03/09/2024 07:33:00 4.9 Above high normal 0. 8-1.2 Final Performing Location [facility] [address] [place] [address]
--- OUTSIDE RECORDS SUMMARY | 2024-05-24 05:29 | External Medical Summary | Summary of Care ---
Author Name Unknown Organization [facility] Address [address] [place] [address] Phone [phone] Care Team Providers Care Ecology Teacher Name Role Phone Sherry Maya DO Primary Care Provider [phone] Encounter Details Date Type Department Care Team (Late st Contact Info) Description 03/03/2024 12:50 PM EST Home Visit Care Coordination and Integration [address] [place] [address] Edna Baum, [facility] Bobbin Cleaner [address] [place], [place] [id number] Allergies Active Allergy Reactions Criticality Noted Date Comments Benzonatate 12/08/2016 choking Keyanna Pedraza Other (Please comment) High 04/10/20 09 Choking documented as of this encounter (statuses as of 03/03/2024) Medications Medication Sig Dispensed Refills Start Date End Date Status ONETOUCH LANCETS MISCIndications:DM type 2, not at goal ([facility]) 3 Box Dosing Unit 1 5 Active [...] mouth daily. 30 Cap 5 7 Active Glucose Blood (ONETOUCH VERIO) STRP USE TO TEST BLOOD GLUCOSE 8 TIMES A DAY 800 Strip 3 9 Active Insulin Aspart 100 UNIT/ML Injection Solution Inject under the skin. FOR USE IN PUMP Active [employer] Verio Flex System w/Device Kit Use as directed. 0 Active Diclofenac Sodium 1 % External Gel (Voltaren)Indications: Hand arthritis Apply topically to affected area daily. Apply to hands 100 g 1 Active polyethylene glycol 3350 119 gram PO POWD Take 119 g by mouth daily as needed for Constipation. May use up to 2-3 times per day as needed. 1 Active BiPAP every night at bedtime. 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 1 Each 1 Active Loratadine 10 MG Oral Tablet (Claritin) Take 1 Tablet by mouth daily. 100 Tablet 3 1 Active Metoprolol Succinate ER 25 MG Oral Tablet Extended Release 24 Hour (Toprol XL) Take 1 Tablet by mouth 2 times a day. 200 Tablet 3 1 Active Additional Information Patient not taking.Reported on [...] reaction protocol)). 2 Tablet 11 1 Active Meclizine HCl 12.5 MG Oral [...] 03/03/2024 Mupirocin 2 % External Ointment (Bactroban) 2 Active Ferrous Sulfate 325 (65 Fe) MG Oral Tablet (Feosol)Indications:Ot her iron deficiency anemia Take 1 Tablet by mouth in the morning and 1 Tablet before bedtime. 60 Tablet 11 3 Active Levothyroxine Sodium 88 MCG Oral Tablet (Levoxyl)Indications:H ypothyroidism, unspecified type TAKE ONE TABLET BY MOUTH IN THE MORNING AT LEAST 30 MINS PRIOR TO BREAKFAST OR OTHER MEDS 100 Tablet 5 3 Active Ammonium Lactate 12 % External Lotion (Lac-Hydrin)Indication s:S/P BKA (below knee amputation) unilateral, left (HCC) Apply topically to affected area as needed for Dry Skin. Apply to rash on legs 400 g 1 4 Active Omeprazole 20 MG Oral Capsule Delayed Release (PriLOSEC)Indications: Heart burn Take 1 Capsule by mouth in the morning. 100 Capsule 1 4 Active Triamcinolone Acetonide 0.1 % External Lotion (Aristocort)Indication s:Other eczema Apply topically to affected area 2 times a day. To dry skin on the lower legs and stump. Avoid on open wounds 60 mL 5 4 Active Atorvastatin Calcium 80 MG Oral Tablet (Lipitor)Indications:D yslipidemia, goal LDL below 100 Take 1 Tablet by mouth in the morning. 100 Tablet 3 4 Active Additional Information Patient not taking.Reported on 03/03/2024 metOLazone 2.5 MG Oral Tablet (Zaroxolyn) Take 1 Tablet by mouth once a day on Thursday, Thursday, and Thursday only. 90 Tablet 1 4 Active DULoxetine HCl 20 MG Oral Capsule Delayed Release Particles (duloxetine) Take 1 Capsule by mouth in the morning. Do not cut, crush or chew. 90 Capsule 2 4 Active Additional Information Patient not taking.Reported on 02/22/2024 Warfarin Sodium 2 MG Oral Tablet (Coumadin) TAKE ONE TO TWO TABLETS (2MG TO 4MG) BY MOUTH DAILY INSTRUCTED BY COUMADIN CLINIC 180 Tablet 3 4 Active Metoclopramide HCl 10 MG Oral Tablet (Reglan) Take 1 Tablet by mouth 3 times a day as needed for Nausea. 30 minutes before meals 30 Tablet 4 Active Additional Information Patient not taking.Reported on 03/03/2024 Metoprolol Succinate ER 50 MG Oral Tablet Extended Release 24 Hour (toPROL XL) Take 1 Tablet by mouth in the morning and 1 Tablet before bedtime. Total of 75mg twice daily. 200 Tablet 3 4 Active Additional Information Patient taking differently:50 mg Oral BID (.AM/PM),Taking 50 mg three times a day, Reported on 02/22/2024 Loperamide HCl 2 MG Oral Tablet (Imodium A-D) Take 1 Tablet by mouth 4 times a day as needed for Diarrhea. Active Spironolactone 25 MG Oral Tablet (Aldactone) Take 1 Tablet by mouth in the morning. 90 Tablet 3 4 Active Torsemide 20 MG Oral Tablet (Demadex)Indications:H eart failure, systolic, due to CAD (HCC),Chronic diastolic heart failure (HCC),Paroxysmal atrial fibrillation (HCC) Taking 40 mg in morning and 20 mg in afternoon 270 Tablet 3 4 Active Empagliflozin 10 MG Oral Tablet (Jardiance) Take 1 Tablet by mouth in the morning. 90 Tablet 3 4 Active Hyoscyamine Sulfate 0.125 MG Oral Tablet (Levsin)Indications:Di arrhea, unspecified type Take 1 Tablet by mouth every 4 hours as needed for Cramping. for abdominal pain 40 Tablet 2 4 Active Pregabalin 50 MG Oral Capsule (Lyrica)Indications:Di abetic polyneuropathy associated with type 2 diabetes mellitus (HCC),S/P BKA (below knee amputation) unilateral, left (HCC),Leg wound, right, initial encounter Take 1 Capsule by mouth in the morning and 1 Capsule at noon and 1 Capsule before bedtime. 60 Capsule 4 Active Vitamin D (Ergocalciferol) 1.25 MG (98276 UT) Oral Capsule (Drisdol) TAKE ONE CAPSULE BY MOUTH EVERY WEEK 12 Capsule 4 Active Potassium Chloride Tiffanie ER 20 MEQ Oral Tablet Extended Release Take 1 Tablet by mouth in the morning and 1 Tablet before bedtime. 60 Tablet 2 4 Active DAPTOmycin 500 MG Intravenous Solution Reconstituted (Cubicin) Administer 500 mg intravenously in the morning. 4 Active Meropenem 1 GM Intravenous Solution Reconstituted (Merrem) Administer 1,000 mg intravenously in the morning and 1,000 mg at noon and 1,000 mg before bedtime. 4 Active oxyCODONE HCl 10 MG Oral Tablet (Roxicodone)Indication s:S/P BKA (below knee amputation) unilateral, left (HCC),Diabetic polyneuropathy associated with type 2 diabetes mellitus (HCC),Leg wound, right, initial encounter Take 1 Tablet by mouth every 6 hours as needed for Pain, Severe. 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 Project # [id number], ENVIRONMENTAL SERVICES ASSISTANT: Ben Hoover MD. CRC: DEBORAH Back. SUMMARY: To test the hypothesis that Evacetrapib 130 mg, in comparison to placebo, reduces the risk of major adverse coronary events in high-risk vascular disease patients. CONTACTS: During normal business hours, contact study staff at ; after hours Microsoft Dynamics Developer via the [facility] hospital oven operator [phone]. 24-hour Global Study Helpline: [phone]. Lipid levels should not be ordered/obtained while this subject is in the Accelerate study. Lipids are being managed in a blinded fashion. If lipid levels are inadvertently obtained, it is important that test results are NOT provided to the patient, study doctor, business operations coordinator, or other study team members. Restricted meds while in the study: 1) niacin > 250 mg, 2) gemfibrozil with a potent [id number]. NINA on CPAP 06/28/2012 01/31/2020 Overview: 06/28/12 [...] as of this encounter (statuses as of 03/03/2024) Immunizations Name Administration Dates Next Due COVID-19 [...] of this encounter Progress Notes * Edna Baum, [facility] Bobbin Cleaner - 03/03/2024 7:43 PM EST Telemedicine visit: No Community [facility] Bobbin Cleaner ([facility]) documentation: CHW return home visit to complete home safety assessment. Pt states he is having difficulty with his ramp at the bottom. He stated he was out for an appointment the other day and had to call the [employer] to assist to get him back into his home due to a gap at the bottom of his ramp that he got caught up in and ended up bumping his leg on the banister trying to get over the lip. CHW questioned who installed the ramp, as CHW was unable to find any orga nization in [facility] that completes free assistance to fix or [...] Care Team (Late st Contact Info) Description 03/08/2024 6:00 AM EST Anticoagulation Centralized Clinical Pharmacy Services, Renee Wise [address] [place] [address] [place] [address] [facility], [facility] [place] [address] [place] [address] 03/09/2024 7:20 AM EST Laboratory Lab Mobile Phlebotomy [facility] [address] [facility] [place] [address] Mvmg, Gml Mobile Home Draw [address] [facility] [place] [address] 03/22/2024 2:30 PM EST Telemedicine [facility], [place] [address] [place] [address] Carolee Manriquez PA-C [address] [place] [address] Edna Baum, Community Health Bobbin Cleaner [address] [place] [address] 05/11/2024 2:00 PM EST Office Visit Infectious Disease [facility] [address] [facility] [place] [address] Sherry Roy MD [address] [place] [address] 07/11/2024 9:50 AM EDT Office Visit [facility] [address] [place] [address] Sherry Maya, [address] [place] [address] Scheduled Procedures Name Priority Associated Diagnoses Date/Ti [...] Additional history exists CKD PHOS USE SMARTSET 10012 06/03/2024 02/0 10/2023, 11/06/2021, 09/12/2020, Additional history exists HbA1c 06/04/2024 12/03/2023, 07/26, 03/27/2023, Additional history exists Albumin/Creatinine Ratio 06/19/2024 024, 08/15/2022, 11/06/2021, Additional history exists GFR 08/27/2024 02/28/2024, 04/2023, 02/22/2024, Additional history exists Depression Monitoring 09/07/2024 09/08/2023 TSH 02/25/2025 02/26/2024, 100 06/2023, 09/24/2023, Additional history exists CKD HGB USE SMARTSET 31153 02/27/202502/27, 02/26/2024, 02/26/2024, Additional history exists DTap/Tdap Vaccines (3 [...] the patient have Health Care Power of Technology Consultant? Yes, not currently available * Full [...] Relationshi p Communication Omar Lyle Adult Child [facility] Health [place] re Agent Xi Lyle Adult Child Health Care Agent Care Teams Ecology Teacher Relationship Specialty Start Date End Date Sherry Maya DO [address] [place] [address] PCP - General Family Medicine 11/12/11 documented as of this encounter
--- OUTSIDE RECORDS SUMMARY | 2024-05-24 05:29 | External Medical Summary | Summary of Care ---
Author Name Unknown Organization [facility] Address [address] [facility] [place] [address] Phone [phone] Care Team Providers Care Software Design Engineer Name Role Phone Sherry Maya DO Primary Care Provider + [phone] Encounter Details Date Type Department Care Team (Late st Contact Info) Description 03/08/2024 Orders Only [address] [address] Anthony Figueroa MD [address] [place] [address] Allergies Active Allergy Reactions Criticality Noted Date [...] 24 Active Vitamin D (Ergocalciferol) 1.25 MG (34270 UT) Oral Capsule (Drisdol) TAKE ONE CAPSULE [...] (07/04/2019): Added automatically from request for surgery [id number] 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 Project # [id number], RACKING TECHNICIAN: Ben Hoover MD. CRC: DEBORAH Back. SUMMARY: To test the hypothesis that Evacetrapib 130 mg, in comparison to placebo, reduces the risk of major adverse coronary events in high-risk vascular disease patients. CONTACTS: During normal business hours, contact study staff at ; after hours Dough Machine Operator via the [place] hospital liquid natural gas plant operator [phone]. 24-hour Global Study Helpline: [phone]. Lipid levels should not be ordered/obtained while [...] 250 mg, 2) gemfibrozil with a potent [id number]. NINA on CPAP 06/28/2012 01/31/2020 Overview (06/28/2012): [...] Phlebotomy [facility] [address] [facility] [place] [address] Mvmg, Gml Mobile Home Draw [address] [facility] [place] [address] 03/10/2024 6:00 AM EST Anticoagulation Centralized Clinical Pharmacy Services, Renee Wies [address] [place] [address] [place] [address] [facility], [address] [place] [address] 03/22/2024 2:30 PM EST Telemedicine [facility], [place] [address] [place] [address] Carolee Manriquez PA-C [address] [place] [address] Edna Baum, Community [facility] Fire Sprinkler Apparatus Inspector [address] [place] [address] 05/11/2024 2:00 PM EST Office Visit Infectious Disease [facility] [place] [address] [facility] [place] [address] Sherry Roy MD [address] [place] [address] 07/11/2024 9:50 AM EDT Office Visit [facility] [address] [place] [address] Sherry Maya, DO [address] [place] [address] Scheduled Procedures Name Priority Associated Diagnoses Date/Ti [...] Additional history exists CKD PHOS USE SMARTSET 04957 06/03/2024 02/0 10/2023, 11/06/2021, 09/12/2020, Additional history exists HbA1c 06/04/2024 12/03/2023, 07/26, 03/27/2023, Additional history exists Albumin/Creatinine Ratio 06/19/2024 024, 08/15/2022, 11/06/2021, Additional history exists GFR 08/27/2024 03/07/2024, 06/2023, 02/26/2024, Additional history exists Depression Monitoring 09/07/2024 09/08/2023 TSH 02/25/2025 02/26/2024, 100 06/2023, 09/24/2023, Additional history exists CKD HGB USE SMARTSET 77824 02/27/202503/07, 02/28/2024, 02/26/2024, Additional history exists DTap/Tdap Vaccines [...] full detail OUTSIDE LAB (SEE SCANNED REPORT) Comment:PH [place]-CBC CREATININE OUTSIDE L AB (SEE SCANNED REPORT) [...] LAB OUTSIDE LAB (SEE SCANNED REPORT) HEMOGLOBIN, Y3C-XMPUDGU LAB OUTSIDE LAB (SEE SCANNED REPORT) PHOSPHORUS-OUTSID E LAB OUTSIDE LAB (SEE SCANNED REPORT) PTH-OUTSIDE LAB OUTS ADY LAB (SEE SCANNED REPORT) MICROALBUMIN RATIO-OUTSIDE LAB OUTSIDE LA B (SEE SCANNED REPORT) PROTEIN, UA-OUTSIDE LAB OUTSIDE LAB (SEE SCANNED REPORT) HGB 12.4(A) 13.5 - 18 GM/DL OUTSIDE LAB (SEE SCANNED REPORT) 03/07/2024 us Anthony Figueroa MD LABORATORY Edited Re santosh - Final OUTSIDE LAB (SEE SCANNED REPORT) documented in [...] the patient have Health Care Power of Gastroenterology Manager? Yes, not currently available * Full [...] Agents on File Name Relationship Healthcare Agent [facility] p Communication Omar Lyle Adult Child [facility] re Agent Xi Lyle Adult Child [facility] Care Agent Care Teams Software Design Engineer Relationship Specialty Start Date End Date Sherry Maya DO [address] [place] [address] PCP - General Family Medicine 11/12/11 documented as of this encounter
--- OUTSIDE RECORDS SUMMARY | 2024-05-24 05:29 | External Medical Summary | Summary of Care ---
Author Name Unknown Organization [facility] Address [address] [facility] [place] [address] Phone [phone] Care Team Providers Care Logistics Planning Manager Name Role Phone Sherry Maya DO Primary Care Provider + [phone] Reason for Visit * Reason Onset Date Comments Home Health 03/04/2024 Encounter Details Date Type Department Care Team (Late st Contact Info) Description 03/04/2024 Telephone [facility] [address] [place] [address] Sherry Maya DO [address] [place] [address] Home Health Allergies Active Allergy Reactions Criticality Noted Date Comments Benzonatate 12/08/2016 choking Keyanna Pedraza Other (Please comment) High 04/10/20 09 Choking documented as of this encounter (statuses as of 03/08/2024) Medications ONETOUCH LANCETS MISCIndications:DM type 2, not at goal ([facility]) 3 Box Dosing Unit 1 04/17/20 15 Active Nitroglycerin 0.4 MG Sublingual Tablet Sublingual Place under the tongue every 5 minutes as needed. Up to 3 in 15 minutes. 25 Tab 11 04/17/20 15 Active Magnesium Oxide 400 MG CapsuleIndications:H eart failure, systolic, due to CAD ([facility]),Automatic implantable cardioverter-defibri llator in situ,Chronic ischemic heart disease,Ischemic cardiomyopathy Take 1 Cap by mouth daily. 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),Right knee pain, unspecified chronicity,Heart failure, systolic, due to CAD ([facility]) Bariatric heavy duty walker- 2 wheels- please document patient's weight at 308 1 Each 02/08/20 Active DIURETIC TITRATION PLANIndications:Hear t failure, systolic, due to CAD ([facility]) If no improvement on day [...] 24 Active Vitamin D (Ergocalciferol) 1.25 MG (12055 UT) Oral Capsule (Drisdol) TAKE ONE CAPSULE [...] (07/04/2019): Added automatically from request for surgery [id number] 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 Project # [id number], GEEK SQUAD MANAGER: Ben Hoover MD. CRC: DEBORAH Back. SUMMARY: To test the hypothesis that Evacetrapib 130 mg, in comparison to placebo, reduces the risk of major adverse coronary events in high-risk vascular disease patients. CONTACTS: During normal business hours, contact study staff at ; after hours Hvac Sheet Metal Installer via the [facility] hospital coating machine operator [phone]. 24-hour Global Study Helpline: [phone]. Lipid levels should not be ordered/obtained while this subject is in the Accelerate study. Lipids are being managed in a blinded fashion. If lipid levels are inadvertently obtained, it is important that test results are NOT provided to the patient, study doctor, academic support coordinator, or other study team members. Restricted meds while in the study: 1) niacin > 250 mg, 2) gemfibrozil with a potent [id number]. NINA on CPAP 06/28/2012 01/31/2020 Overview (06/28/2012): [...] Encounter - Kopinski, Sherry L, DO - 03/04/2024 2:12 PM EST I am not sure what referral to place, can you send to case management and see? * Telephone Encounter - Lori Mcclain LPN - 03/04/2024 1:49 PM EST Ani calderón [facility] calling to request social welfare administrator referral to assist in getting mental health resources. documented in this encounter Plan of Treatment Upcoming Encounters Date Type Department Care Team (Late st Contact Info) Description 03/09/2024 7:20 AM EST Laboratory Lab Mobile Phlebotomy [facility] [address] [facility] [place] [address] Mvmg, Gml Mobile Home Draw [address] [place] [employer] [place] [address] 03/10/2024 6:00 AM EST Anticoagulation Centralized Clinical Pharmacy Services, [address] [place] [address] [place] [address] 03/22/2024 2:30 PM EST Telemedicine [facility], [place] [address] [place] [address] Carolee Manriquez PA-C [address] [place] [address] Edna Baum, Community Health Occupational Therapy Teacher [address] [place] [address] 05/11/2024 2:00 PM EST Office Visit Infectious Disease [facility] [place] [address] [facility] [place] [address] Sherry Roy MD [address] [facility], [place] [address] 07/11/2024 9:50 AM EDT Office Visit [address] [place] [address] Sherry Maya, DO [address] [place] [address] Scheduled Procedures Name Priority Associated Diagnoses Date/Ti [...] Additional history exists CKD PHOS USE SMARTSET 10662 06/03/202410/2023, 11/06/2021, 09/12/2020, Additional history exists HbA1c 06/04/2024 12/03/2023, 07/26, 03/27/2023, Additional history exists Albumin/Creatinine Ratio 06/19/20242 024, 08/15/2022, 11/06/2021, Additional history exists GFR 09/04/2024 03/07/2024, 06/2023, 02/26/2024, Additional history exists Depression Monitoring 09/07/2024 09/08/2023 TSH 02/25/2025 02/26/2024, 06/2023, 09/24/2023, Additional history exists CKD HGB USE SMARTSET 02304 03/07/202503/074, 02/28/2024, 02/26/2024, Additional history exists DTap/Tdap Vaccines [...] the patient have Health Care Power of Director Of Teenage Activities? Yes, not currently available * Full Code [...] Relationshi p Communication Omar Mckeont Adult Child [facility] [place] re Agent Xi [place] Adult Child [facility] Care Agent Care Teams Logistics Planning Manager Relationship Specialty Start Date End Date Sherry Maya DO [address], [place] [phone] PCP - General Family Medicine 11/12/11 documented as of this encounter
--- OUTSIDE RECORDS SUMMARY | 2024-05-24 05:29 | External Medical Summary | Summary of Care ---
Author Name Unknown Organization [facility] Address [address] [facility] [place] [address] Phone [phone] Care Team Providers Care Boring Mill Operator For Metal Name Role Phone Sherry Maya DO Primary Care Provider + [phone] Reason for Visit * Reason Onset Date Comments Appointment 02/23/2024 Encounter Details Date Type Department Care Team (Late st Contact Info) Description 02/23/[address] [facility] [address] [place] [address] Sherry Maya DO [address] [place] [address] Appointment Allergies Active Allergy Reactions Criticality Noted Date Comments Benzonatate 12/08/2016 choking Keyanna Pedraza Other (Please comment) High 04/10/20 09 Choking documented as of this encounter (statuses as of 03/04/2024) Medications ONETOUCH LANCETS MISCIndications:DM type 2, not at goal ([facility]) 3 Box Dosing Unit 1 04/17/20 15 Active Nitroglycerin 0.4 MG Sublingual Tablet Sublingual Place under the tongue every 5 minutes as needed. Up to 3 in 15 minutes. 25 Tab 11 04/17/20 15 Active Magnesium Oxide 400 MG CapsuleIndications:He art failure, systolic, due to CAD ([facility]),Automatic implantable cardioverter-defibril lator in situ,Chronic ischemic heart disease,Ischemic cardiomyopathy Take 1 Cap by mouth daily. 30 Cap 5 03/16/20 17 Active Glucose Blood (Cima NanoTechTOUCH VERIO) STRP USE TO TEST BLOOD GLUCOSE 8 TIMES A DAY 800 Strip 3 03/18/20 Active Insulin Aspart 100 UNIT/ML Injection Solution Inject under the skin. 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),Right knee pain, unspecified chronicity,Heart failure, systolic, due to CAD ([facility]) Bariatric heavy duty walker- 2 wheels- please document patient's weight at 308 1 Each 02/08/20 Active DIURETIC TITRATION PLANIndications:Heart failure, systolic, due to CAD ([facility]) If no improvement on day 3, [...] 24 Active Pregabalin 50 MG Oral Capsule (Lyrica)Indications:D iabetic polyneuropathy associated with type 2 diabetes mellitus (HCC),S/P BKA (below knee amputation) unilateral, left (HCC),Leg wound, right, initial encounter Take 1 Capsule by mouth in the morning and 1 Capsule at noon and 1 Capsule before bedtime. 60 Capsule 12/31/19 24 Active Vitamin D (Ergocalciferol) 1.25 MG (02265 UT) Oral Capsule (Drisdol) TAKE ONE CAPSULE BY MOUTH EVERY WEEK 12 Capsule 01/04/20 24 Active documented as of this encounter (statuses as of 03/04/2024) Active Problems Problem Noted Date Diagnosed Date [...] (07/04/2019): Added automatically from request for surgery [id number] 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 [...] as of this encounter (statuses as of 03/04/2024) Resolved Problems Problem Noted Date Diagnosed Date [...] Silent myocardial infarction 03/23/2013 11/08/2018 Accelerate Clinical Trial*[id number] 01/24/2013 05/16/2015 Overview (01/24/2013): ACCELERATE STUDY. Project # [id number], LEAF COVERER: Ben Hoover MD. CRC: DEBORAH Back. SUMMARY: To test the hypothesis that Evacetrapib 130 mg, in comparison to placebo, reduces the risk of major adverse coronary events in high-risk vascular disease patients. CONTACTS: During normal business hours, contact study staff at ; after hours Oil And Gas Principal via the [facility] hospital sewing machine operator zipper [phone]. 24-hour Global Study Helpline: [phone]. Lipid levels should not be ordered/obtained while this subject is in the Accelerate study. Lipids are being managed in a blinded fashion. If lipid levels are inadvertently obtained, it is important that test results are NOT provided to the patient, study doctor, clinical pharmacy coordinator, or other study team members. Restricted meds while in the study: 1) niacin > 250 mg, 2) gemfibrozil with a potent [id number]. NINA on CPAP 06/28/2012 01/31/2020 Overview (06/28/2012): [...] as of this encounter (statuses as of 03/04/2024) Immunizations Name Administration Dates Next Due COVID-19 [...] Miscellaneous Notes * Telephone Encounter - Kylee Deutsch OSA - 03/04/2024 12:30 PM EST Patient was seen via video visit on February 28. * Telephone Encounter - RobbyJelena OSA - 02/23/2024 12:15 PM EDT Pt calling as he is not able to physically come in for his appt on 02/24 as he is unable to walk. He is non weight baring and his wheel chair will not fit out the door and he has no way of coming in.Medicare is refusing to pay for ambulance transport for his appts and he is not able to attend in person visits. Asking if this hospital discharge could be changed to a video visit. documented in this encounter Plan of Treatment Upcoming Encounters Date Type Department Care Team (Late st Contact Info) Description 03/08/2024 6:00 AM EST Anticoagulation Centralized Clinical Pharmacy Services, Renee Wise [address] [place] [address] [place] [address] [facility], [address] [place] [address] 03/09/2024 7:20 AM EST Laboratory Lab Mobile Phlebotomy [facility] [address] [facility] [place] [address] Mvmg, Gml Mobile Home Draw [address] [place] [address] 03/22/2024 2:30 PM EST Telemedicine [facility] [address] [place] [address] Carolee Manriquez PA-C [address] [place] [address] Edna Baum, Community Health Yarn Texturing Machine Operator [address] [place] [address] 05/11/2024 2:00 PM EST Office Visit Infectious Disease [facility] [address] [facility] [place] [address] Sherry Roy MD [address] [place] [address] 07/11/2024 9:50 AM EDT Office Visit [facility] [address] [place] [address] Sherry Maya, [address] [place] [address] Scheduled Procedures Name Priority Associated Diagnoses Date/Ti [...] Additional history exists CKD PHOS USE SMARTSET 81422 06/03/2024 02/0 10/2023, 11/06/2021, 09/12/2020, Additional history exists HbA1c 06/04/2024 12/03/2023, 07/26, 03/27/2023, Additional history exists Albumin/Creatinine Ratio 06/19/2024 024, 08/15/2022, 11/06/2021, Additional history exists GFR 08/27/2024 02/28/2024, 1104/2023, 02/22/2024, Additional history exists Depression Monitoring 09/07/2024 09/08/2023 TSH 02/25/2025 02/26/2024, 100 06/2023, 09/24/2023, Additional history exists CKD HGB USE SMARTSET 71021 02/27/202502/27, 02/26/2024, 02/26/2024, Additional history exists DTap/Tdap [...] the patient have Health Care Power of Brake Operator Heavy Duty? Yes, not currently available * Full Code [...] Agents on File Name Relationship [facility] Omar Lyle Adult Child [facility] re Agent Xi Lyle Adult Child Health Care Agent Care Teams Boring Mill Operator For Metal Relationship Specialty Start Date End Date Sherry Maya DO [address] [place] [address] PCP - General Family Medicine 11/12/11 documented as of this encounter
--- OUTSIDE RECORDS SUMMARY | 2024-05-24 05:29 | External Medical Summary | Summary of Care ---
Author Name Unknown Organization [facility] Address [address] [facility] [place] [address] Phone [phone] Care Team Providers Care Day Camp Unit Leader Name Role Phone Sherry Maya DO Primary Care Provider + [phone] Reason for Visit * Reason Onset Date Comments Home Health 03/04/2024 Encounter Details Date Type Department Care Team (Late st Contact Info) Description 03/04/2024 Telephone [facility] [address] [place] [address] Sherry Maya DO [address] [place] [address] Home Health Allergies Active Allergy [...] CapsuleIndications:H eart failure, systolic, due to CAD ([facility]),Automatic implantable cardioverter-defibri llator in situ,Chronic ischemic heart disease,Ischemic cardiomyopathy Take 1 Cap by mouth daily. 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 Project # [id number], TRACTOR OPERATOR LASER LEVELING: Ben Hoover MD. CRC: DEBORAH Back. SUMMARY: To test the hypothesis that Evacetrapib 130 mg, in comparison to placebo, reduces the risk of major adverse coronary events in high-risk vascular disease patients. CONTACTS: During normal business hours, contact study staff at ; after hours Senior Hr Generalist via the [facility] hospital adding machine operator [phone]. 24-hour Global Study Helpline: [phone]. Lipid levels should not be ordered/obtained while this subject is in the Accelerate study. Lipids are being managed in a blinded fashion. If lipid levels are inadvertently obtained, it is important that test results are NOT provided to the patient, study doctor, time study engineer, or other study team members. Restricted meds while in the study: 1) niacin > 250 mg, 2) gemfibrozil with a potent [id number]. NINA on CPAP 06/28/2012 01/31/2020 Overview (06/28/2012): [...] - 03/04/2024 1:49 PM EST Ani calderón [facility] calling to request director of social services referral to assist in getting mental health resources. documented in this encounter Plan of Treatment Upcoming Encounters Date Type Department Care Team (Late st Contact Info) Description 03/08/2024 6:00 AM EST Anticoagulation Centralized Clinical Pharmacy Services, [address] [place] [address] [place] [address] 03/09/2024 7:20 AM EST Laboratory Lab Mobile Phlebotomy [facility] [address] [place] [address] Mvmg, Gml Mobile Home Draw [address] [facility] [place] [address] 03/22/2024 2:30 PM EST [facility] [place], [place] [address] [place] [address] Carolee Manriquez PA-C [address] [place] [address] Edna Baum, Community Health Cloth Edge Singer [address] [place] [address] 05/11/2024 2:00 PM EST Office Visit Infectious Disease [facility] [place] [address] [facility] [place] [address] Sherry Roy MD [address] [facility], [place] [address] 07/11/2024 9:50 AM EDT Office Visit [address] [place] [address] Sherry Maya, DO [address] [place] [address] Scheduled Procedures Name Priority Associated Diagnoses Date/Ti [...] Additional history exists CKD PHOS USE SMARTSET 85172 06/03/202410/2023, 11/06/2021, 09/12/2020, Additional history exists HbA1c 06/04/2024 12/03/2023, 07/26, 03/27/2023, Additional history exists Albumin/Creatinine Ratio 06/19/20242 024, 08/15/2022, 11/06/2021, Additional history exists GFR 08/27/2024 02/28/2024, 04/2023, 02/22/2024, Additional history exists Depression Monitoring 09/07/2024 09/08/2023 TSH 02/25/2025 02/26/2024, 06/2023, 09/24/2023, Additional history exists CKD HGB USE SMARTSET 53479 02/27/202502/274, 02/26/2024, 02/26/2024, Additional history exists DTap/Tdap Vaccines [...] the patient have Health Care Power of Photographer? Yes, not currently available * Full Code [...] Relationshi p Communication Omar Mckeont Adult Child [facility] [place] re Agent Xi [place] Adult Child [facility] Care Agent Care Teams Day Camp Unit Leader Relationship Specialty Start Date End Date Sherry Maya DO [address] [place], [place] [id number] PCP - General Family Medicine 11/12/11 documented as of this encounter
--- OUTSIDE RECORDS SUMMARY | 2024-05-24 05:29 | External Medical Summary | Summary of Care ---
Author Name Unknown Organization [facility] Address [address] [facility] [place] [address] Phone [phone] Care Team Providers Care [facility] Name Role Phone Sherry Maya DO Primary Care Provider + [phone] Encounter Details Date Type Department Care Team (Late st Contact Info) Description 03/08/2024 Orders Only [place] [address] [place] [address] Sherry Maya DO [address] [place] [address] Allergies Active Allergy Reactions Criticality [...] 24 Active Vitamin D (Ergocalciferol) 1.25 MG (12332 UT) Oral Capsule (Drisdol) TAKE ONE CAPSULE [...] (07/04/2019): Added automatically from request for surgery [id number] 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 Project # [id number], MEDICAL STAFFING COORDINATOR: Ben Hoover MD. CRC: DEBORAH Back. SUMMARY: To test the hypothesis that Evacetrapib 130 mg, in comparison to placebo, reduces the risk of major adverse coronary events in high-risk vascular disease patients. CONTACTS: During normal business hours, contact study staff at ; after hours Survey Coordinator via the [facility] hospital strainer mill operator [phone]. 24-hour Global Study Helpline: [phone]. Lipid levels should not be ordered/obtained while this subject is in the Accelerate study. Lipids are being managed in a blinded fashion. If lipid levels are inadvertently obtained, it is important that test results are NOT provided to the patient, study doctor, brand coordinator, or other study team members. Restricted meds while in the study: 1) niacin > 250 mg, 2) gemfibrozil with a potent [id number]. NINA on CPAP 06/28/2012 01/31/2020 Overview (06/28/2012): [...] EST Laboratory Lab Mobile Phlebotomy [facility] [facility] [address] [facility], Gml Mobile Home Draw [address] [facility] [place] [address] 03/10/2024 6:00 AM EST Anticoagulation Centralized Clinical Pharmacy Services, [facility]enee Wise [address] [place] [address] [place] [address] [facility], [address] [place] [address] 03/22/2024 2:30 PM EST Telemedicine [facility], [place] [address] [place] [address] Carolee Manriquez PA-C [address] [place] [address] Edna Baum, Community Health Event Marketing Manager [address] [place] [address] 05/11/2024 2:00 PM EST Office Visit [facility] [address] Sherry Roy MD [address] [place] [address] 07/11/2024 9:50 AM EDT Office Visit [facility] [address] [place] [address] Sherry Maya, [address] [place] [address] Scheduled Procedures Name Priority Associated Diagnoses Date/Ti [...] Additional history exists CKD PHOS USE SMARTSET 53797 06/03/2024 02/0 10/2023, 11/06/2021, 09/12/2020, Additional history exists HbA1c 06/04/2024 12/03/2023, 07/26, 03/27/2023, Additional history exists Albumin/Creatinine Ratio 06/19/2024 024, 08/15/2022, 11/06/2021, Additional history exists GFR 08/27/2024 03/07/2024, 06/2023, 02/26/2024, Additional history exists Depression Monitoring 09/07/2024 09/08/2023 TSH 02/25/2025 02/26/2024, 1006/2023, 09/24/2023, Additional history exists CKD HGB USE SMARTSET 53014 02/27/202503/07, 02/28/2024, 02/26/2024, Additional history exists DTap/Tdap [...] Date/Time Associated Diagnosis Comments CHEMISTRY-OUTSIDE Routine 03/07/2024 CHEMISTRY-OUTSIDE Routine 03/07/2024 documented in this encounter Results * (ABNORMAL) CHEMISTRY-OUTSIDE (03/07/2024) Not all results display below - see scan for full detail SCAN INCLUDES: CMP, CRP, CK TOTAL OUTSIDE LAB (SEE SCANNED REPORT) CREATININE 1.41(A) 0.70 - 1.30 MG/DL OUTSIDE LAB (SEE SCANNED REPORT) EGFR 57(A) >60 ML/MIN OUTSIDE LAB (SEE SCANNED REPORT) [...] LAB OUTSIDE LAB (SEE SCANNED REPORT) HEMOGLOBIN, [id number] LAB OUTSIDE LAB (SEE SCANNED REPORT) PHOSPHORUS-OUTSID E LAB OUTSIDE LAB (SEE SCANNED REPORT) PTH-OUTSIDE LAB OUTS ADY LAB (SEE SCANNED REPORT) MICROALBUMIN RATIO-OUTSIDE LAB OUTSIDE LA B (SEE SCANNED REPORT) PROTEIN, UA-OUTSIDE LAB OUTSIDE LAB (SEE SCANNED REPORT) HGB OUTSIDE LA B (SEE SCANNED REPORT) 03/07/2024 us Anthony Figueroa [...] the patient have Health Care Power of Head Of It? Yes, not currently available * Full Code [...] Relationshi p Communication Maurymemo Lyle Adult Child [facility] [place] re Agent Xi Ontiverosrett Adult Child Health Care Agent Care Teams [facility] Relationship Specialty Start Date End Date Sherry Maya DO [address] [place] [address] PCP - General Family Medicine 11/12/11 documented as of this encounter
--- OUTSIDE RECORDS SUMMARY | 2024-05-24 05:30 | External Medical Summary | Summary of Care ---
Author Name Unknown Organization [facility] Address [address] [facility] [place] [address] Phone [phone] Care Team Providers Care Business Account Manager Name Role Phone Sehrry Maya DO Primary Care Provider + [phone] Reason for Visit * Reason Onset Date Comments Medication Refill 02/28/2024 Encounter Details Date Type Department Care Team (Late st Contact Info) Description 02/28/2024 Refill [place] [address] [place] [address] Sherry Maya DO [address] [place] [address] Allergies Active Allergy Reactions Criticality Noted Date Comments Benzonatate 12/08/2016 choking Keyanna Pedraza Other (Please comment) High 04/10/20 09 Choking documented as of this encounter (statuses as of 03/02/2024) Medications Medication Sig Dispensed Refills Start Date End Date Status ONETOUCH LANCETS MISCIndications:DM type 2, not at goal ([facility]) 3 Box Dosing Unit 1 5 Active Nitroglycerin 0.4 MG Sublingual Tablet Sublingual Place under the tongue every 5 minutes as needed. Up to 3 in 15 minutes. 25 Tab 11 5 Active Magnesium Oxide 400 MG CapsuleIndications:Hea rt failure, systolic, due to CAD ([facility]),Automatic implantable cardioverter-defibrill ator in situ,Chronic ischemic heart disease,Ischemic cardiomyopathy Take 1 Cap by mouth daily. 30 Cap 5 7 Active Glucose Blood (FirstCry.comTOUCH VERIO) STRP USE TO TEST BLOOD GLUCOSE 8 TIMES A DAY 800 Strip 3 9 Active Insulin Aspart 100 UNIT/ML Injection Solution Inject under the skin. 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 9.9 mL 10 2 Active Mupirocin 2 % External Ointment (Bactroban) 2 [...] Apply to rash on legs 400 g 4 Active Omeprazole 20 MG Oral Capsule [...] 3 4 Active Additional Information Patient taking differently:80 mg Oral Daily(AM),Will resume on 03/03, Reported on 02/22/2024 metOLazone 2.5 MG Oral Tablet (Zaroxolyn) Take [...] minutes before meals 30 Tablet 4 Active Metoprolol Succinate ER 50 MG Oral [...] 4 Active Vitamin D (Ergocalciferol) 1.25 MG (59188 UT) Oral Capsule (Drisdol) TAKE ONE CAPSULE BY MOUTH EVERY WEEK 12 Capsule 4 Active Potassium Chloride Tiffanie ER 20 MEQ Oral Tablet Extended Release Take 1 Tablet by mouth in the morning and 1 Tablet before bedtime. 60 Tablet 2 4 Active Potassium Chloride Tiffanie ER 20 MEQ Oral Tablet Extended Release Take 1 Tablet by mouth in the morning and 1 Tablet before bedtime. 60 Tablet 2 4 02/28/20 24 Discontinu ed(Refill) documented as of this encounter (statuses as of 03/02/2024) Active Problems Problem Noted Date Diagnosed Date [...] Overview: Added automatically from request for surgery [id number] 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 [...] as of this encounter (statuses as of 03/02/2024) Resolved Problems Problem Noted Date Diagnosed Date [...] Silent myocardial infarction 03/23/2013 11/08/2018 Accelerate Clinical Trial*[id number] 01/24/2013 05/16/2015 Overview: ACCELERATE STUDY. Project # [id number], CAMERA REPAIRMAN: Ben Hoover MD. CRC: DEBORAH Back. SUMMARY: To test the hypothesis that Evacetrapib 130 mg, in comparison to placebo, reduces the risk of major adverse coronary events in high-risk vascular disease patients. CONTACTS: During normal business hours, contact study staff at ; after hours Elementary Teacher via the [facility] hospital sand mixer operator [phone]. 24-hour Global Study Helpline: [phone]. Lipid levels should not be ordered/obtained while this subject is in the Accelerate study. Lipids are being managed in a blinded fashion. If lipid levels are inadvertently obtained, it is important that test results are NOT provided to the patient, study doctor, coordinator of health services, or other study team members. Restricted meds while in the study: 1) niacin > 250 mg, 2) gemfibrozil with a potent [id number]. NINA on CPAP 06/28/2012 01/31/2020 Overview: 06/28/12 [...] as of this encounter (statuses as of 03/02/2024) Immunizations Name Administration Dates Next Due COVID-19 [...] Telephone Encounter - Sherry Maya DO - 03/02/2024 2:06 PM EST How many days has he been taking per day of potassium? Renwed rx * Telephone Encounter - Alyson Saez [facility] - 03/01/2024 7:18 AM EST POTASSIUM Date Value Ref Range Status 02/28/2024 3.3 (A) 3.5 - 5.1 MMOL 02/26/2024 4.0 3.5 - 5.1 mmol/L Final 02/22/2024 3.2 (A) 3.5 - 5.1 MMOL/L Per chart review, patient is seems to only be taking 1 tablet daily. Even with that he is non compliant. It appears he just restarted after recent labs Please advise if you would like to keep twice daily dosing or change do daily dosing. Thank You, Alyson Saez [facility] Clinical Pharmacist Centralized Clinical Pharmacy Services (CCPS) [phone] [id number] 03/01/2024, 7:21 AM documented in this encounter Plan of Treatment Upcoming Encounters Date Type Department Care Team (Late st Contact Info) Description 03/03/2024 12:50 PM EST Home Visit Care Coordination and Integration [address] [place] [address] Edna Baum [facility] Restorer [address] [place] [address] 03/07/2024 7:10 AM EST Laboratory Lab Mobile Phlebotomy [facility] [address] [facility] [place] [address] Mvmg, Gml Mobile Home Draw [address] [facility] [place] [address] 03/08/2024 6:00 AM EST Anticoagulation [facility] Clinical Pharmacy Services, Renee Wise [address] [place] [address] [place] [address] [facility], [address] [place] [address] 03/22/2024 2:30 PM EST Telemedicine [facility], [place] [address] [place] [address] Carolee Manriquez PA-C [address] [place] [address] Edna Baum [facility] Health Violin Restorer [address] [place] [address] 05/11/2024 2:00 PM EST Office Visit Infectious Disease [facility] [place] [address] [facility] [place] [address] Sherry Roy MD [address] [place] [address] 07/11/2024 9:50 AM EDT Office Visit [facility] [address] [place] [address] Sherry Maya, DO [address] [place] [address] Scheduled Procedures Name Priority Associated Diagnoses Date/Ti [...] Additional history exists CKD PHOS USE SMARTSET 99229 06/03/2024 020 10/2023, 11/06/2021, 09/12/2020, Additional history exists HbA1c 06/04/2024 12/03/2023, 07/26, 03/27/2023, Additional history exists Albumin/Creatinine Ratio 06/19/2024 024, 08/15/2022, 11/06/2021, Additional history exists GFR 08/27/2024 02/28/2024, 1104/2023, 02/22/2024, Additional history exists Depression Monitoring 09/07/2024 09/08/2023 TSH 02/25/2025 02/26/2024, 1006/2023, 09/24/2023, Additional history exists CKD HGB USE SMARTSET 84144 02/27/202502/27, 02/26/2024, 02/26/2024, Additional history exists DTap/Tdap [...] patient have Health Care Power of Film Replacement Orderer? Yes, not currently available * Full Code [...] File Name Relationship [facility] Omar Lyle Adult Child [facility] Agent Xi Lyle Adult Child Health Care Agent Care Teams Business Account Manager Relationship Specialty Start Date End Date Sherry Maya DO [address] [place] [address] PCP - General Family Medicine 11/12/11 documented as of this encounter
--- OUTSIDE RECORDS SUMMARY | 2024-05-24 05:30 | External Medical Summary | Summary of Care ---
Author Name Unknown Organization [facility] Address [address] [facility] [place] [address] Phone [phone] Care Team Providers Care Rn Stars Name Role Phone Sherry Maya DO Primary Care Provider + [phone] Reason for Visit * Reason Onset Date Comments Advice 03/01/2024 Encounter Details Date Type Department Care Team (Late st Contact Info) Description 03/01/2024 Telephone [facility] [address] [place] [address] Sherry Maya DO [address] [place] [address] Advice Allergies Active Allergy Reactions Criticality Noted Date Comments Benzonatate 12/08/2016 choking Keyanna Pedraza Other (Please comment) High 04/10/20 09 Choking documented as of this encounter (statuses as of 03/01/2024) Medications Medication Sig Dispensed Refills Start Date End Date Status ONETOUCH LANCETS MISCIndications:DM type 2, not at goal ([facility]) 3 Box Dosing Unit 1 5 Active Nitroglycerin 0.4 MG Sublingual Tablet Sublingual Place under the tongue every 5 minutes as needed. Up to 3 in 15 minutes. 25 Tab 11 5 Active Magnesium Oxide 400 MG CapsuleIndications:Hea rt failure, systolic, due to CAD ([facility]),Automatic implantable cardioverter-defibrill ator in situ,Chronic ischemic heart disease,Ischemic cardiomyopathy Take 1 Cap by mouth daily. 30 Cap 5 7 Active Glucose Blood ([employer] PCTOUCH VERIO) STRP USE TO TEST BLOOD GLUCOSE 8 TIMES A DAY 800 Strip 3 9 Active Insulin Aspart 100 UNIT/ML Injection Solution Inject under the skin. FOR USE IN PUMP Active Cast Iron SystemsTouch Verio Flex System w/Device Kit Use as [...] mellitus due to underlying condition ([facility]),Ulcer of right foot with necrosis [...] Daily(AM),Will resume on 03/03, Reported on 02/22/2024 Potassium Chloride Tiffanie ER 20 MEQ Oral Tablet Extended Release Take 1 Tablet by mouth in the morning and 1 Tablet before bedtime. 60 Tablet 2 4 Active metOLazone 2.5 MG Oral Tablet (Zaroxolyn) Take [...] 4 Active Vitamin D (Ergocalciferol) 1.25 MG (02229 UT) Oral Capsule (Drisdol) TAKE ONE CAPSULE BY MOUTH EVERY WEEK 12 Capsule 4 Active DAPTOmycin 500 MG Intravenous Solution [...] as of this encounter (statuses as of 03/01/2024) Active Problems Problem Noted Date Diagnosed Date [...] Overview: Added automatically from request for surgery [id number] 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 [...] as of this encounter (statuses as of 03/01/2024) Resolved Problems Problem Noted Date Diagnosed Date [...] 12/11/2020 Overview: Per [facility] Protocol RINADLI (dyspnea on exertion) 03/01/2018 Food insecurity 12/08/2017 [...] Silent myocardial infarction 03/23/2013 11/08/2018 Accelerate Clinical Trial*[id number] 01/24/2013 05/16/2015 Overview: ACCELERATE STUDY. Project # [id number], PROJECTOR OPERATOR: Ben Hoover MD. CRC: DEBORAH Back. SUMMARY: To test the hypothesis that Evacetrapib 130 mg, in comparison to placebo, reduces the risk of major adverse coronary events in high-risk vascular disease patients. CONTACTS: During normal business hours, contact study staff at ; after hours Airline Ticket Agent via the [facility] hospital six color press operator [phone]. 24-hour Global Study Helpline: [phone]. Lipid levels should not be ordered/obtained while this subject is in the Accelerate study. Lipids are being managed in a blinded fashion. If lipid levels are inadvertently obtained, it is important that test results are NOT provided to the patient, study doctor, distance learning coordinator, or other study team members. Restricted meds while in the study: 1) niacin > 250 mg, 2) gemfibrozil with a potent [id number]. NINA on CPAP 06/28/2012 01/31/2020 Overview: 06/28/12 [...] as of this encounter (statuses as of 03/01/2024) Immunizations Name Administration Dates Next Due COVID-19 [...] encounter Miscellaneous Notes * Telephone Encounter - Jordyn Vivar LPN - 03/01/2024 10:31 AM EST Carey calling from [facility]. She is requesting the office note from 02/29/2024 to be faxed to her at [phone] Faxed to [facility] at [phone], received confirmation that the transmission was successful. documented in this encounter Plan of Treatment Upcoming Encounters Date Type Department Care Team (Late st Contact Info) Description 03/03/2024 12:50 PM EST Home Visit Care Coordination and Integration [address] [place] [address] Edna Baum, Community [facility] Hide Grader [address] [place] [address] 03/08/2024 6:00 AM EST Anticoagulation [facility] Clinical Pharmacy Services, Renee Wise [address] [place] [address] [place] [address] [facility], [address] [place] [address] 03/22/2024 2:30 PM EST Telemedicine [facility], [place] [address] [place] [address] Carolee Manriquez PA-C [address] [place] [address] Edna Baum, Community [facility] Hide Grader [address] [place] [address] 05/11/2024 2:00 PM EST Office Visit Infectious Disease [facility] [address] [place] [address] Sherry Roy MD [address] [place] [address] 07/11/2024 9:50 AM EDT Office Visit [facility] [address] [place] [address] Sherry Maya, DO [address] [place] [address] Scheduled Procedures Name Priority Associated Diagnoses Date/Ti [...] Additional history exists CKD PHOS USE SMARTSET 32132 06/03/2024 02/0 10/2023, 11/06/2021, 09/12/2020, Additional history exists HbA1c 06/04/2024 12/03/2023, 07/26, 03/27/2023, Additional history exists Albumin/Creatinine Ratio 06/19/2024 024, 08/15/2022, 11/06/2021, Additional history exists GFR 08/27/2024 02/28/2024, 04/2023, 02/22/2024, Additional history exists Depression Monitoring 09/07/2024 09/08/2023 TSH 02/25/2025 02/26/2024, 06/2023, 09/24/2023, Additional history exists CKD HGB USE SMARTSET 12385 02/27/202502/27, 02/26/2024, 02/26/2024, Additional history exists DTap/Tdap [...] the patient have Health Care Power of [place] Pilot? Yes, not currently available * Full Code [...] Relationshi p Communication Omar Lyle Adult Child [facility] Health [place] re Agent Xi Mckeont Adult Child Health Care Agent Care Teams Rn Stars Relationship Specialty Start Date End Date Sherry Maya DO [address] [place] [address] PCP - General Family Medicine 11/12/11 documented as of this encounter
--- OUTSIDE RECORDS SUMMARY | 2024-05-24 05:30 | External Medical Summary | Summary of Care ---
Author Name Unknown Organization [facility] Address [address] [facility] [place] [address] Phone [phone] Care Team Providers Care Silk Screen Layout Drafter Name Role Phone Sherry Maya DO Primary Care Provider + [phone] Reason for Visit * Reason Onset Date Comments Medication Refill 02/28/2024 Encounter Details Date Type Department Care Team (Late st Contact Info) Description 02/28/2024 Refill [place] [address] [place] [address] Sherry Maya DO [address] [place] [address] Allergies Active Allergy Reactions Criticality Noted Date Comments Benzonatate 12/08/2016 choking Keyanna Pedraza Other (Please comment) High 04/10/20 09 Choking documented as of this encounter (statuses as of 03/02/2024) Medications Medication Sig Dispensed Refills Start Date End Date Status ONETOUCH LANCETS MISCIndications:DM type 2, not at goal ([facility]) 3 Box Dosing Unit 1 5 Active Nitroglycerin 0.4 MG Sublingual Tablet Sublingual Place under the tongue every 5 minutes as needed. Up to 3 in 15 minutes. 25 Tab 11 5 Active Magnesium Oxide 400 MG CapsuleIndications:Hea rt failure, systolic, due to CAD ([facility]),Automatic implantable cardioverter-defibrill ator in situ,Chronic ischemic heart disease,Ischemic cardiomyopathy Take 1 Cap by mouth daily. 30 Cap 5 7 Active Glucose Blood (The Royal CellarsTOUCH VERIO) STRP USE TO TEST BLOOD GLUCOSE 8 TIMES A DAY 800 Strip 3 9 Active Insulin Aspart 100 UNIT/ML Injection Solution Inject under the skin. FOR USE IN PUMP Active [employer]ract [employer]es[employer] Verio Flex System w/Device Kit Use as [...] unspecified chronicity,Heart failure, systolic, due to CAD ([facility]) Bariatric heavy duty walker- 2 wheels- please document patient's weight at 308 1 Each 1 Active DIURETIC TITRATION PLANIndications:Heart failure, systolic, due to CAD ([facility]) If no improvement on day [...] 4 Active Vitamin D (Ergocalciferol) 1.25 MG (40668 UT) Oral Capsule (Drisdol) TAKE ONE CAPSULE [...] Overview: Added automatically from request for surgery [id number] 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 [...] Silent myocardial infarction 03/23/2013 11/08/2018 Accelerate Clinical Trial*[id number] 01/24/2013 05/16/2015 Overview: ACCELERATE STUDY. Project # [id number], TIRE MECHANIC: Ben Hoover MD. CRC: DEBORAH Back. SUMMARY: To test the hypothesis that Evacetrapib 130 mg, in comparison to placebo, reduces the risk of major adverse coronary events in high-risk vascular disease patients. CONTACTS: During normal business hours, contact study staff at ; after hours Linen Room Custodian via the [facility] hospital gang head saw operator [phone]. 24-hour Global Study Helpline: [phone]. Lipid levels should not be ordered/obtained while this subject is in the Accelerate study. Lipids are being managed in a blinded fashion. If lipid levels are inadvertently obtained, it is important that test results are NOT provided to the patient, study doctor, legal coordinator, or other study team members. Restricted meds while in the study: 1) niacin > 250 mg, 2) gemfibrozil with a potent [id number]. NINA on CPAP 06/28/2012 01/31/2020 Overview: 06/28/12 [...] rx * Telephone Encounter - Alyson Saez [facility] - 03/01/2024 7:18 AM EST POTASSIUM [...] or change do daily dosing. Thank You, Alysno Saez [facility] Clinical Pharmacist Centralized Clinical Pharmacy Services (CCPS) [phone] [id number] 03/01/2024, 7:21 AM documented in this encounter Plan of Treatment Upcoming Encounters Date Type Department Care Team (Late st Contact Info) Description 03/03/2024 12:50 PM EST Home Visit Care Coordination and Integration [address] [place] [address] Edna Baum [facility] [address] [place] [address] 03/07/2024 7:10 AM EST Laboratory Lab Mobile Phlebotomy [facility] [address] [facility] [place] [address] M[facility], Gml Mobile Home Draw [address] [facility] [place] [address] 03/08/2024 6:00 AM EST Anticoagulation Centralized Clinical Pharmacy Services, Renee Wise [address] [place] [address] [place] [address] [facility], [address] [place] [address] 03/22/2024 2:30 PM EST Telemedicine [facility], [place] [address] [place] [address] Carolee Manriquez PA-C [address] [place] [address] Edna Baum [facility] Plaster [place] [address] [place] [address] 05/11/2024 2:00 PM EST Office Visit Infectious Disease [facility] [address] [facility] [place] [address] Sherry Roy MD [address] [place] [facility] [place] [address] 07/11/2024 9:50 AM EDT Office Visit [facility] [address] [place] [address] Sherry Maya, DO [address] [place] [address] Scheduled Procedures Name Priority Associated Diagnoses Date/Ti [...] Additional history exists CKD PHOS USE SMARTSET 51957 06/03/2024 020 10/2023, 11/06/2021, 09/12/2020, Additional history exists HbA1c 06/04/2024 12/03/2023, 07/26, 03/27/2023, Additional history exists Albumin/Creatinine Ratio 06/19/2024 024, 08/15/2022, 11/06/2021, Additional history exists GFR 08/27/2024 02/28/2024, 1104/2023, 02/22/2024, Additional history exists Depression Monitoring 09/07/2024 09/08/2023 TSH 02/25/2025 02/26/2024, 1006/2023, 09/24/2023, Additional history exists CKD HGB USE SMARTSET 38921 02/27/202502/27, 02/26/2024, 02/26/2024, Additional history exists DTap/Tdap [...] the patient have Health Care Power of Product Support Specialist? Yes, not currently available * Full Code [...] [facility] Omar Lyle Adult Child [facility] Agent Xi Lyle Adult Child Health Care Agent Care Teams Silk Screen Layout Drafter Relationship Specialty Start Date End Date Sherry Maya DO [address] [place] [address] PCP - General Family Medicine 11/12/11 documented as of this encounter
--- OUTSIDE RECORDS SUMMARY | 2024-05-24 05:30 | External Medical Summary | Summary of Care ---
Author Name Unknown Organization [facility] Address [address] [facility] [place] [address] Phone [phone] Care Team Providers Care Director Of [facility] Name Role Phone Sherry Maya DO Primary Care Provider + [phone] Reason for Visit * Reason Onset Date Comments Order Request 03/02/2024 [place] Encounter Details Date Type Department Care Team ([facility] Contact Info) Description 03/02/2024 Telephone [facility] [address] [place] [address] Sherry Maya DO [address] [place] [address] [facility] Allergies Active Allergy Reactions Criticality Noted Date Comments Benzonatate 12/08/2016 choking Keyanna Pedraza Other (Please comment) High 04/10/20 09 Choking documented as of this encounter (statuses as of 03/02/2024) Medications Medication Sig Dispensed Refills Start Date End Date Status ONETOUCH LANCETS MISCIndications:DM type 2, not at goal ([facility]) 3 Box Dosing Unit 1 5 Active Nitroglycerin 0.4 MG Sublingual Tablet Sublingual Place under the tongue every 5 minutes as needed. Up to 3 in 15 minutes. 25 Tab 11 5 Active Magnesium Oxide 400 MG CapsuleIndications:He art failure, systolic, due to CAD ([facility]),Automatic implantable cardioverter-defibril lator in situ,Chronic ischemic heart disease,Ischemic cardiomyopathy Take 1 Cap by mouth daily. 30 Cap 5 7 Active Glucose Blood (EQUIP AdvantageTOUCH VERIO) STRP USE TO TEST BLOOD GLUCOSE [...] TITRATION PLANIndications:Heart failure, systolic, due to CAD ([facility] [...] 1 Active Aspirin 81 MG Oral Tablet ChewableIndications:D [...] 2 Active Fluticasone Propionate 50 MCG/ACT Nasal SuspensionIndications [...] 4 Active Torsemide 20 MG Oral Tablet (Demadex)Indications: [...] 4 Active Pregabalin 50 MG Oral Capsule (Lyrica)Indications:D iabetic polyneuropathy associated with type 2 diabetes mellitus (HCC),S/P BKA (below knee amputation) unilateral, left (HCC),Leg wound, right, initial encounter Take 1 Capsule by mouth in the morning and 1 Capsule at noon and 1 Capsule before bedtime. 60 Capsule 4 Active Vitamin D (Ergocalciferol) 1.25 MG (54986 UT) Oral Capsule (Drisdol) TAKE ONE CAPSULE BY MOUTH EVERY WEEK 12 Capsule 4 Active DAPTOmycin 500 MG Intravenous Solution Reconstituted (Cubicin) Administer 500 mg intravenously in the morning. 4 Active Meropenem 1 GM Intravenous Solution Reconstituted (Merrem) Administer 1,000 mg intravenously in the morning and 1,000 mg at noon and 1,000 mg before bedtime. 4 Active oxyCODONE HCl 10 MG Oral Tablet (Roxicodone)Indicatio ns:S/P BKA (below knee amputation) unilateral, left (HCC),Diabetic polyneuropathy associated with type 2 diabetes mellitus (HCC),Leg wound, right, initial encounter Take 1 Tablet by mouth every 6 hours as needed for Pain, Severe. 60 Tablet 4 Active Potassium Chloride Tiffanie ER 20 MEQ Oral Tablet Extended Release Take 1 Tablet by mouth in the morning and 1 Tablet before bedtime. 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 Project # [id number], FRUIT HARVESTER MACHINE OPERATOR: Ben Hoover MD. CRC: DEBORAH Back. SUMMARY: To test the hypothesis that Evacetrapib 130 mg, in comparison to placebo, reduces the risk of major adverse coronary events in high-risk vascular disease patients. CONTACTS: During normal business hours, contact study staff at ; after hours Ocean Export Agent via the [facility] hospital tilting saw operator [phone]. 24-hour Global Study Helpline: [phone]. Lipid levels should not be ordered/obtained while this subject is in the Accelerate study. Lipids are being managed in a blinded fashion. If lipid levels are inadvertently obtained, it is important that test results are NOT provided to the patient, study doctor, tenant coordinator, or other study team members. Restricted meds while in the study: 1) niacin > 250 mg, 2) gemfibrozil with a potent [id number]. NINA on CPAP 06/28/2012 01/31/2020 Overview: 06/28/12 [...] Telephone Encounter - Cassi Toro LPN - 03/02/2024 2:01 PM EST Received Fax for BFPROVIDERS: Dr. Sherry Maya ORDER received from [facility] and FAXED documented in this encounter Plan of Treatment Upcoming Encounters Date Type Department Care Team (Late st Contact Info) Description 03/03/2024 12:50 PM EST Home Visit [facility] Coordination [facility] Integration [address] [facility] [address] Edna Baum, Community Health Accredited Legal Secretary [address] [facility] [place] [address] 03/07/2024 7:10 AM EST Laboratory Lab Mobile Phlebotomy [facility] [address] [place] [address] [facility], Gml Mobile Home Draw [address] [facility] [place] [address] 03/08/2024 6:00 AM EST Anticoagulation Centralized Clinical Pharmacy Services, Renee Wise [address] [place] [address] [place] [address] [facility] [address] [place] [address] 03/22/2024 2:30 PM EST Telemedicine [facility], [place] [address] [place] [address] Carolee Manriquez PA-C [address] [place] [address] Edna Baum, Community Health Accredited Legal Secretary [address] [place] [address] 05/11/2024 2:00 PM EST Office Visit Infectious Disease [facility] [place] [address] [facility] [address] Sherry Roy MD [address] [place] [address] 07/11/2024 9:50 AM EDT Office Visit [facility] [address] [place] [address] Sherry Maya, [address] [place] [address] Scheduled Procedures Name Priority Associated Diagnoses Date/Ti [...] Additional history exists CKD PHOS USE SMARTSET 45514 06/03/2024 02/0 10/2023, 11/06/2021, 09/12/2020, Additional history exists HbA1c 06/04/2024 12/03/2023, 07/26, 03/27/2023, Additional history exists Albumin/Creatinine Ratio 06/19/2024 024, 08/15/2022, 11/06/2021, Additional history exists GFR 08/27/2024 02/28/2024, 1104/2023, 02/22/2024, Additional history exists Depression Monitoring 09/07/2024 09/08/2023 TSH 02/25/2025 02/26/2024, 100 06/2023, 09/24/2023, Additional history exists CKD HGB USE SMARTSET 71916 02/27/202502/27, 02/26/2024, 02/26/2024, Additional history exists DTap/Tdap [...] the patient have Health Care Power of Physical Science Technician? Yes, not currently available * Full [...] Relationshi p Communication Omar Lyle Adult Child [facility] Health Ma re Agent Xi Lyle Adult Child Health Care Agent Care Teams Director Of [facility] Relationship Specialty Start Date End Date Sherry Maya DO [address] [place] [address] PCP - General Family Medicine 11/12/11 documented as of this encounter
--- OUTSIDE RECORDS SUMMARY | 2024-05-24 05:30 | External Medical Summary | Summary of Care ---
Author Name Unknown Organization [facility] Address [address] [facility] [place] [address] Phone [phone] Care Team Providers Care Materials Planner/Production Planner Name Role Phone Sherry Maya DO Primary Care Provider + [phone] Reason for Visit * Reason Onset Date Comments FYI 02/29/2024 Encounter Details Date Type Department Care Team (Late st Contact Info) Description 02/29/2024 Telephone [facility] [address] [place] [address] Sherry Maya DO [address] [place] [address] FYI Allergies Active Allergy Reactions Criticality Noted Date Comments Benzonatate 12/08/2016 choking Keyanna Pedraza Other (Please comment) High 04/10/20 09 Choking documented as of this encounter (statuses as of 03/01/2024) Medications Medication Sig Dispensed Refills Start Date End Date Status ONEMALATHI PEREZ MISCIndications:DM type 2, not at goal ([facility]) 3 Box Dosing Unit 1 04/17/2015 Active Nitroglycerin 0.4 MG Sublingual Tablet Sublingual Place under the tongue every 5 minutes as needed. Up to 3 in 15 minutes. 25 Tab 11 04/17/2015 Active Magnesium Oxide 400 MG CapsuleIndications:Hea rt failure, systolic, due to CAD ([facility]),Automatic implantable cardioverter-defibrill ator in situ,Chronic ischemic heart disease,Ischemic cardiomyopathy Take 1 Cap by mouth daily. 30 Cap 5 03/16/2017 Active Glucose Blood (OctoniusTOUCH VERIO) STRP USE TO TEST BLOOD GLUCOSE 8 TIMES A DAY 800 Strip 3 03/18/2019 Active Insulin Aspart 100 UNIT/ML Injection Solution Inject under the skin. FOR USE IN PUMP Active IntenseDebateTouch Verio Flex System w/Device Kit Use as directed. 02/21/2020 Active Diclofenac Sodium 1 % External Gel (Voltaren)Indications: Hand arthritis Apply topically to affected area daily. Apply to hands 100 g 05/31/2020 Active polyethylene glycol 3350 119 gram PO POWD Take 119 g by mouth daily as needed for Constipation. May use up to 2-3 times per day as needed. 08/09/2020 Active BiPAP every night at bedtime. Active WalkerIndications:Oste omyelitis of foot, left, acute (HCC),Diabetic polyneuropathy associated with diabetes mellitus due to underlying condition ([facility]),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),Right knee pain, unspecified chronicity,Heart failure, systolic, due to CAD ([facility]) Bariatric heavy duty walker- 2 wheels- please document patient's weight at 308 1 Each 02/07/2021 Active DIURETIC TITRATION PLANIndications:Heart failure, systolic, due to CAD ([facility]) If no improvement on day 3, contact heart failure managing provider. 1 Each 03/11/2021 Active Loratadine 10 MG Oral Tablet (Claritin) Take 1 Tablet by mouth daily. 100 Tablet 3 04/12/2021 Active Metoprolol Succinate ER 25 MG Oral Tablet Extended Release 24 Hour (Toprol XL) Take 1 Tablet by mouth 2 times a day. 200 Tablet 3 04/12/2021 Active Additional Information Patient not [...] reaction protocol)). 2 Tablet 11 04/12/2021 Active Meclizine HCl 12.5 MG Oral Tablet [...] nostril daily.. 9.9 mL 10 08/05/2021 Active Mupirocin 2 % External Ointment (Bactroban) 03/23/2022 Acti ve Ferrous Sulfate 325 (65 Fe) MG Oral Tablet (Feosol)Indications:Ot her iron deficiency anemia Take 1 Tablet by mouth in the morning and 1 Tablet before bedtime. 60 Tablet 11 09/15/2022 Active Levothyroxine Sodium 88 MCG Oral Tablet (Levoxyl)Indications:H ypothyroidism, unspecified type TAKE ONE TABLET BY MOUTH IN THE MORNING AT LEAST 30 MINS PRIOR TO BREAKFAST OR OTHER MEDS 100 Tablet 01/08/2023 Active Ammonium Lactate 12 % External Lotion (Lac-Hydrin)Indication s:S/P BKA (below knee amputation) unilateral, left (HCC) Apply topically to affected area as needed for Dry Skin. Apply to rash on legs 400 g 06/03/2023 Active Omeprazole 20 MG Oral Capsule Delayed Release (PriLOSEC)Indications: Heart burn Take 1 Capsule by mouth in the morning. 100 Capsule 1 06/03/2023 Active Triamcinolone Acetonide 0.1 % External Lotion (Aristocort)Indication s:Other eczema Apply topically to affected area 2 times a day. To dry skin on the lower legs and stump. Avoid on open wounds 60 mL 5 06/17/2023 Active Atorvastatin Calcium 80 MG Oral Tablet (Lipitor)Indications:D yslipidemia, goal LDL below 100 Take 1 Tablet by mouth in the morning. 100 Tablet 3 06/19/2023 Active Additional Information Patient taking differently:80 mg Oral Daily(AM),Will resume on 03/03, Reported on 02/22/2024 Potassium Chloride Tiffanie ER 20 MEQ Oral Tablet Extended Release Take 1 Tablet by mouth in the morning and 1 Tablet before bedtime. 60 Tablet 2 06/28/2023 Active metOLazone 2.5 MG Oral Tablet (Zaroxolyn) Take 1 Tablet by mouth once a day on Thursday, Thursday, and Thursday only. 90 Tablet 1 07/13/2023 Active DULoxetine HCl 20 MG Oral Capsule Delayed Release Particles (duloxetine) Take 1 Capsule by mouth in the morning. Do not cut, crush or chew. 90 Capsule 2 07/13/2023 Active Additional Information Patient not taking.Reported on 02/22/2024 Warfarin Sodium 2 MG Oral Tablet (Coumadin) TAKE ONE TO TWO TABLETS (2MG TO 4MG) BY MOUTH DAILY INSTRUCTED BY [facility]MADIN CLINIC 180 Tablet 3 08/31/2023 Active Metoclopramide HCl 10 MG Oral Tablet (Reglan) Take 1 Tablet by mouth 3 times a day as needed for Nausea. 30 minutes before meals 30 Tablet 08/31/2023 Active Metoprolol Succinate ER 50 MG Oral Tablet Extended Release 24 Hour (toPROL XL) Take 1 Tablet by mouth in the morning and 1 Tablet before bedtime. Total of 75mg twice daily. 200 Tablet 3 09/03/2023 Active Additional Information Patient taking differently:50 mg Oral BID (.AM/PM),Taking 50 mg three times a day, Reported on 02/22/2024 Loperamide HCl 2 MG Oral Tablet (Imodium A-D) Take 1 Tablet by mouth 4 times a day as needed for Diarrhea. Active Spironolactone 25 MG Oral Tablet (Aldactone) Take 1 Tablet by mouth in the morning. 90 Tablet 3 10/08/2023 Active Torsemide 20 MG Oral Tablet (Demadex)Indications:H eart failure, systolic, due to CAD (HCC),Chronic diastolic heart failure (HCC),Paroxysmal atrial fibrillation (HCC) Taking 40 mg in morning and 20 mg in afternoon 270 Tablet 3 11/04/2023 Active Empagliflozin 10 MG Oral Tablet (Jardiance) Take 1 Tablet by mouth in the morning. 90 Tablet 3 11/05/2023 Active Hyoscyamine Sulfate 0.125 MG Oral Tablet (Levsin)Indications:Di arrhea, unspecified type Take 1 Tablet by mouth every 4 hours as needed for Cramping. for abdominal pain 40 Tablet 2 11/30/2023 Active Pregabalin 50 MG Oral Capsule (Lyrica)Indications:Di abetic polyneuropathy associated with type 2 diabetes mellitus (HCC),S/P BKA (below knee amputation) unilateral, left (HCC),Leg wound, right, initial encounter Take 1 Capsule by mouth in the morning and 1 Capsule at noon and 1 Capsule before bedtime. 60 Capsule 12/31/2023 Active Vitamin D (Ergocalciferol) 1.25 MG (35740 UT) Oral Capsule (Drisdol) TAKE ONE CAPSULE BY MOUTH EVERY WEEK 12 Capsule 01/04/2024 Active documented as of this encounter (statuses [...] Overview: Added automatically from request for surgery [id number] 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 [...] Silent myocardial infarction 03/23/2013 11/08/2018 Accelerate Clinical Trial*[id number] 01/24/2013 05/16/2015 Overview: ACCELERATE STUDY. Project # [id number], ULTRASONIC SOLDERER: Ben Hoover MD. CRC: DEBORAH Back. SUMMARY: To test the hypothesis that Evacetrapib 130 mg, in comparison to placebo, reduces the risk of major adverse coronary events in high-risk vascular disease patients. CONTACTS: During normal business hours, contact study staff at ; after hours Regulator Pin Inserter via the [facility] wet crown blocking operator [phone]. 24-hour Global Study Helpline: [phone]. Lipid levels should not be ordered/obtained while this subject is in the Accelerate study. Lipids are being managed in a blinded fashion. If lipid levels are inadvertently obtained, it is important that test results are NOT provided to the patient, study doctor, incident response coordinator, or other study team members. Restricted meds while in the study: 1) niacin > 250 mg, 2) gemfibrozil with a potent [id number]. NINA on CPAP 06/28/2012 01/31/2020 Overview: 06/28/12 [...] No 09/08/2023 Does the household have a [facility] source of income? (Household - [...] Telephone Encounter - Kwame Parks MD - 03/01/2024 9:19 AM EST Saw pt yesterday Ordered DME And signed note * Telephone Encounter - Christina Ledezma OSA - 02/29/2024 9:41 AM EST Lori occupational therapist calling asking if today while patient is in office if a new script canbe provided for new power wheel chair, needs to include diagnosis code, most recent office visit, and reasoning why it needs to be a power wheel chair (is non weight bearing and non ambulatory.) documented in this encounter Plan of Treatment Upcoming Encounters Date Type Department Care Team (Late st Contact Info) Description 03/08/2024 6:00 AM EST Anticoagulation Centralized Clinical Pharmacy Services, Renee Wise [address] [place] [address] [place] [address] [place] [address] 03/22/2024 2:30 PM EST Telemedicine [facility], [place] [address] [place] [address] Carolee Manriquez PA-C [address] [place] [address] Edna Baum, Community Health Administration Intern [address] [place] [address] 05/11/2024 2:00 PM EST Office Visit Infectious Disease [facility] [address] [place] [address] Sherry Roy MD [address] [place] [address] 07/11/2024 9:50 AM EDT Office Visit [facility] [address] [place] [address] Sherry Maya, [address] [place] [address] Scheduled Procedures Name Priority Associated Diagnoses Date/Ti [...] Additional history exists CKD PHOS USE SMARTSET 31966 06/03/2024 02/0 10/2023, 11/06/2021, 09/12/2020, Additional history exists HbA1c 06/04/2024 12/03/2023, 07/26, 03/27/2023, Additional history exists Albumin/Creatinine Ratio 06/19/20242 024, 08/15/2022, 11/06/2021, Additional history exists GFR 08/27/2024 02/28/2024, 1104/2023, 02/22/2024, Additional history exists Depression Monitoring 09/07/2024 09/08/2023 TSH 02/25/2025 02/26/2024, 1006/2023, 09/24/2023, Additional history exists CKD HGB USE SMARTSET 72451 02/27/202502/27, 02/26/2024, 02/26/2024, Additional history exists DTap/Tdap [...] the patient have Health Care Power of Co Op? Yes, not currently available * Full Code [...] Relationshi p Communication [facility] re Agent [facility] Care Agent Care Teams Materials Planner/Production Planner Relationship Specialty Start Date End Date Sherry Maya DO [address] [place] [address] PCP - General Family Medicine 11/12/11 documented as of this encounter
--- OUTSIDE RECORDS SUMMARY | 2024-05-24 05:31 | External Medical Summary | Summary of Care ---
Author Name Unknown Organization [facility] Address [address] [place] [address] Phone [phone] Care Team Providers Care Shirt Hemmer Name Role Phone Sherry Maya DO Primary Care Provider + [phone] Reason for Referral * Evaluate & Treat - Unlimited Visits (Within 10 days (routine)) - Authorized Specialty Diagnoses / Procedures Referred By Contgrace t Referred To Contact Infectious Diseases / Infectious Disease Diagnoses Osteomyelitis of right foot, unspecified type (HCC) Kwame Parks MD [address] [place] [address] Referral ID Status Reason Start Date Expiration Date Visits Requested Visits Authorized [id number] Authorized Specialty Services Required 02/29/2024 999 999 [...] Description 02/29/2024 11:40 AM EST Office Visit [facility] [address] [place] [facility] [place] [address] Kwame Parks MD [address] [facility] [place] [address] Osteomyelitis of right foot, unspecified type ([facility])*; S/P foot surgery, right; S/P BKA (below knee amputation) unilateral, left ([facility]); Peripheral arterial disease ([facility]); Type 2 diabetes mellitus with diabetic peripheral angiopathy without gangrene, with long-term current use of insulin ([facility]); Non-pressure chronic ulcer of right lower leg, unspecified ulcer stage ([facility]); Morbid (severe) obesity due to excess calories ([facility]); Insulin pump status; Hospital discharge follow-up; Diabetic polyneuropathy associated with type 2 diabetes mellitus ([facility]); Leg wound, right, initial encounter; Obesity hypoventilation syndrome ([facility]); Stage 3b chronic kidney disease ([facility]); Heart failure, systolic, due to CAD ([facility]); Acquired hypothyroidism; Proliferative diabetic retinopathy of both eyes with macular edema associated with type 2 diabetes mellitus ([facility]); Deep vein thrombosis (DVT) of proximal vein of left lower extremity, unspecified chronicity ([facility]); Insufficient social support; Ulcer of right foot with necrosis of muscle ([facility]); Gait difficulty Allergies Active Allergy Reactions Criticality Noted Date Comments Benzonatate 12/08/2016 choking Keyanna Pedraza Other (Please comment) High 04/10/20 09 Choking documented as of this encounter (statuses as of 03/01/2024) Medications Medication Sig Dispensed Refills Start Date End Date Status ONEUCH CHRIS MISCIndications:DM type 2, not at goal ([facility]) 3 Box Dosing Unit 1 5 [...] the skin. FOR USE IN PUMP Active FIA Formula E Verio Flex System w/Device Kit Use as [...] 4 Active Vitamin D (Ergocalciferol) 1.25 MG (06377 UT) Oral Capsule (Drisdol) TAKE ONE CAPSULE [...] for Pain, Severe. 60 Tablet 4 Active oxyCODONE HCl 5 MG Oral Tablet (Oxy IR) Take 1 Tablet by mouth every 8 hours as needed for Pain, Severe. 12 Tablet 4 02/29/20 24 Discontin ued(Patie nt preferenc e/discont inuation) oxyCODONE HCl 10 MG Oral Tablet (Roxicodone)Indicatio ns:Diabetic polyneuropathy associated with type 2 diabetes mellitus (HCC),S/P BKA (below knee amputation) unilateral, left (HCC),Leg wound, right, initial encounter Take 1 Tablet by mouth every 6 hours as needed for Pain, Severe. 20 Tablet 4 02/29/20 24 Discontin ued(Refil l) documented as of [...] Overview: Added automatically from request for surgery [id number] 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 [...] Silent myocardial infarction 03/23/2013 11/08/2018 Accelerate Clinical Trial*[id number] 01/24/2013 05/16/2015 Overview: ACCELERATE STUDY. Project # [id number], RN NIGHT: Ben Hoover MD. CRC: DEBORAH Back. SUMMARY: To test the hypothesis that Evacetrapib 130 mg, in comparison to placebo, reduces the risk of major adverse coronary events in high-risk vascular disease patients. CONTACTS: During normal business hours, contact study staff at ; after hours Purchasing Department Clerk via the [facility] hospital braze operator [phone]. 24-hour Global Study Helpline: [phone]. Lipid levels should not be ordered/obtained while this subject is in the Accelerate study. Lipids are being managed in a blinded fashion. If lipid levels are inadvertently obtained, it is important that test results are NOT provided to the patient, study doctor, registration coordinator, or other study team members. Restricted meds while in the study: 1) niacin > 250 mg, 2) gemfibrozil with a potent [id number]. NINA on CPAP 06/28/2012 01/31/2020 Overview: 06/28/12 [...] as of this encounter Progress Notes * Kwame Parks MD - 02/29/2024 11:53 AM EST Subjective Ben Lyle is a 58 year old male. Chief Complaint Patient presents with Hospital Follow-Up Pt here today due to hospital discharge follow up Hospital Follow-Up HPI: Here for hospital discharge f/u Admission Feb 08 Discharge feb 20 Dx : s/p rt [...] refill today Might refill 1-2 more times Type 2 DM , insulin pump, oral [...] CAD (HCC) Family history of pancreatic cancer Kidney disease, chronic, stage III (GFR 30-59 ml/min) ([facility]) History of osteomyelitis PHT (pulmonary hypertension) ([facility]) Insomnia Type 2 diabetes mellitus (HCC) Non-pressure chronic ulcer of unspecified part of right lower leg with unspecified severity ([facility]) VT (ventricular tachycardia) ([facility]) NINA (obstructive sleep apnea) Atrial fibrillation (HCC) Insulin pump status S/P BKA (below knee amputation) unilateral, left (HCC) Major depressive disorder, recurrent, mild (HCC) Type 2 diabetes mellitus with diabetic peripheral angiopathy without gangrene ([facility]) Paroxysmal atrial fibrillation ([facility]) Insufficient social support Anemia Anxiety Atherosclerosis of coronary artery Chronic diastolic heart failure (HCC) Chronic pain Closed fracture of fifth metatarsal bone Cor pulmonale, chronic ([facility]) Depression Diabetic neuropathy ([facility]) Diabetic retinopathy ([facility]) Edema Elevated troponin level History of diabetic ulcer of foot Numbness Peripheral arterial disease ([facility]) Right heart failure (secondary to left heart failure) ([facility]) ICD (implantable cardioverter-defibrillator) battery depletion Statin intolerance Status post shoulder surgery Venous stasis ulcer ([facility]) Mass of leg, right Other persistent atrial fibrillation ([facility]) Body mass index (BMI) of 50.0 to 59.9 in adult ([facility]) Morbid (severe) obesity due to excess calories ([facility]) Ulcer of right foot with necrosis of muscle ([facility]) Current Outpatient Medications Medication Sig Dispense Refill IntegrateTOUCH LANCETS MISC 3 Box Dosing Unit 1 Nitroglycerin 0.4 MG Sublingual Tablet Sublingual Place under the tongue every 5 minutes as needed.Up to 3 in 15 minutes. 25 Tab 11 Glucose Blood (IntegrateTOUCH VERIO) STRP USE TO TEST BLOOD GLUCOSE 8 TIMES A DAY 800 Strip 3 Insulin Aspart 100 UNIT/ML Injection Solution Inject under the skin. FOR USE IN PUMP ArchitexaTouch Verio Flex System w/Device Kit Use as [...] Capsule 0 Vitamin D (Ergocalciferol) 1.25 MG (01328 UT) Oral Capsule (Drisdol) TAKE ONE CAPSULE [...] proximal vein of left lower extremity (HCC) 07/03/2020 Acute hypoxemic respiratory failure ([facility]) 07/29/2021 Acute renal failure superimposed on chronic kidney disease ([facility]) 07/29/2021 CHATO (acute kidney injury) ([facility]) 01/04/2017 Last Assessment & Plan: Sec to Cor pulmonale and v tach-- improving --avoid nephrotoxic agents --IVF's held d/t fluid overload - willmonitor closely --daily BMP Amputated great toe of right foot ([facility]) 06/28/2019 Atrial fibrillation ([facility]) Bacteremia due to group B Streptococcus 07/29/2021 Cellulitis 07/29/2021 Cellulitis of right lower extremity 11/09/2009 DM type 2, not at goal ([facility]) Dyslipidemia, goal LDL below 70 HFrEF (heart failure with reduced ejection fraction) ([facility]) HTN, goal below 140/80 Hyperglycemia due to type 2 diabetes mellitus ([facility]) 07/29/2021 Hypokalemia 07/29/2021 Hypomagnesemia 07/29/2021 Insulin pump status 01/11/2021 Adams fracture 07/29/2021 Malfunction of implantable defibrillator ventricular (ICD) lead 07/29/2021 MD (myocardial infarction) ([facility]) Non-healing surgical wound 07/29/2021 NINA treated with BiPAP Osteomyelitis of left foot ([facility]) 01/08/2021 Pneumonia due to COVID-19 virus 07/29/2021 Right foot ulcer ([facility]) 12/05/2019 SARS-CoV-2 positive 07/29/2021 Stage 3b chronic kidney disease ([facility]) 03/05/2020 Per CKD protocol Ventricular tachycardia ([facility]) 06/09/2019 Volume overload 07/29/2021 Volume overload state of heart 07/29/2021 Past Surgical History: Procedure Laterality Date AMPUTATION OF LOWER LEG Left 01/15/2021 AMPUTATION LEG THROUGH TIBIA AND FIBULA performed by Heron Hill MD at OR [facility] BONE DEBRIDEMENT, FIRST 20 CM2 Left 12/05/2019 DEBRIDEMENT SKIN SUBCUTANEOUS TISSUE MUSCLE AND BONE performed by Heron Hill MD at OR [facility] COLONOSCOPY, DIAGNOSTIC (RECTUM) 04/03/2015 TVA polyps, diverticulosis, repeat 3 yrs/[facility] COLONOSCOPY, DIAGNOSTIC (RECTUM) 11/13/2015 adenomatous polyp, diverticulosis, repeat 3 yrs/[facility] COLONOSCOPY, DIAGNOSTIC (RECTUM) 06/01/2020 adenomatous polyps, diverticulosis, poor prep, repeat 3 yrs / [facility] CORONARY ANGIOGRAPHY W/LEFT HEART CATH 09/25/2010 CORONARY ANGIOGRAPHY W/LEFT HEART CATH performed by SUSAN SPENCER at [facility] CORONARY ANGIOGRAPHY W/LEFT HEART CATH Right 06/09/2019 CORONARY ANGIOGRAPHY W/LEFT HEART CATH performed by Isra Melton DO at [facility] EGD, FLEXIBLE, DIAGNOSTIC 04/03/2015 reflux esophagitis/[facility] ELECTROPHYSIOLOGY EVAL & ABLATE VENTRICULAR TACH Bilateral 11/07/2019 VT ISCHEMIC EPS AND CATHETER ABLATION performed by Genesis Skaggs MD at [facility] INFORMATION 04/27/1980 tmj INSERT/REPLACE DEFIBRILLATOR W/TRANSVERSE LEAD(S) 06/01/2012 NON-THOR ICD LEADS AND GENERATOR IMPLANT performed by Dipika Medina IV, MD at [facility] IR VENOUS ACCESS NON-MEDIPORT 06/13/2019 MISCELLANEOUS ORDER ([facility] ONLY) 04/27/2009 Left shoulder decompression for impingement [place] LASER SURGERY OF EYE Bilateral 2020 REMOVE [...] file Social History Narrative 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 Social Determinants of Health [...] Stability Do you currently live in a fci or have no steady place to sleep [...] ASSESSMENT/PLAN: Osteomyelitis of right foot, unspecified type (HCC) (Primary) - DURABLE MEDICAL EQUIPMENT - INFECTIOUS DISEASE REFERRAL OP S/P foot surgery, right - DURABLE MEDICAL EQUIPMENT S/P BKA (below knee amputation) unilateral, left (HCC) - DURABLE MEDICAL EQUIPMENT - oxyCODONE HCl 10 MG Oral Tablet (Roxicodone); Take 1 Tablet by mouth every 6 hours as needed for Pain, Severe. Peripheral arterial disease (HCC) - DURABLE MEDICAL EQUIPMENT Type 2 diabetes mellitus with diabetic peripheral angiopathy without gangrene, with long-term current use of insulin (HCC) - DURABLE MEDICAL EQUIPMENT Non-pressure chronic ulcer of right lower leg, unspecified ulcer stage (HCC) Morbid (severe) obesity due to excess calories (HCC) Insulin pump status Hospital discharge follow-up - [...] Anticoagulation [facility], Renee Wise [address] [place] [address] [place] [address] [facility], [address] [place] [address] 03/22/2024 2:30 PM EST Telemedicine [facility], [place] [address] [place] [address] Carolee Manriquez PA-C [address] [place] [address] Edna Baum, [facility] [place] [address] [place] [address] 05/11/2024 2:00 PM EST Office Visit Infectious Disease [facility] [address] [place] [address] Sherry Roy MD [address] [place] [address] 07/11/2024 9:50 AM EDT Office Visit [facility] [address] [place] [address] Sherry Maya, DO [address] [place] [address] Scheduled Procedures Name Priority Associated Diagnoses Date/Ti [...] Additional history exists CKD PHOS USE SMARTSET 00402 06/03/2024 02/0 10/2023, 11/06/2021, 09/12/2020, Additional history exists HbA1c 06/04/2024 12/03/2023, 07/26, 03/27/2023, Additional history exists Albumin/Creatinine Ratio 06/19/2024 024, 08/15/2022, 11/06/2021, Additional history exists GFR 08/27/2024 02/28/2024, 04/2023, 02/22/2024, Additional history exists Depression Monitoring 09/07/2024 09/08/2023 TSH 02/25/2025 02/26/2024, 1006/2023, 09/24/2023, Additional history exists CKD HGB USE SMARTSET 68649 02/27/202502/27, 02/26/2024, 02/26/2024, Additional history exists DTap/Tdap [...] the patient have Health Care Power of Electrician Maintenance? Yes, not currently available * Full Code [...] Relationshi p Communication Omar Lyle Adult Child [facility] re Agent Xi Mckeont Adult Child [facility] Care Agent Care Teams Shirt Hemmer Relationship Specialty Start Date End Date Sherry Maya DO [address] [place] [address] PCP - General Family Medicine 11/12/11 documented as of this encounter"
--- OUTSIDE RECORDS SUMMARY | 2024-05-24 05:31 | External Medical Summary | Summary of Care ---
Author Name Unknown Organization [facility] Address [address] [facility] [place] [address] Phone [phone] Care Team Providers Care Harness Repairer Name Role Phone Sherry Maya DO Primary Care Provider + [phone] Encounter Details Date Type Department Care Team (Late st Contact Info) Description 02/29/2024 Orders Only [address] [address] Anthony Figueroa MD [address] [place] [address] Allergies Active Allergy Reactions Criticality Noted Date Comments Benzonatate 12/08/2016 choking Keyanna Pedraza Other (Please comment) High 04/10/20 09 Choking documented as of this encounter (statuses as of 02/29/2024) Medications Medication Sig Dispensed Refills Start Date [...] mellitus due to underlying condition ([facility]),Ulcer of right foot with necrosis of muscle [...] 4 Active Vitamin D (Ergocalciferol) 1.25 MG (28640 UT) Oral Capsule (Drisdol) TAKE ONE CAPSULE BY MOUTH EVERY WEEK 12 Capsule 4 Active oxyCODONE HCl 10 MG Oral Tablet (Roxicodone)Indication s:Diabetic polyneuropathy associated with type 2 diabetes mellitus (HCC),S/P BKA (below knee amputation) unilateral, left (HCC),Leg wound, right, initial encounter Take 1 Tablet by mouth every 6 hours as needed for Pain, Severe. 20 Tablet 4 Active DAPTOmycin 500 MG Intravenous Solution Reconstituted (Cubicin) Administer 500 mg intravenously in the morning. 4 Active Meropenem 1 GM Intravenous Solution Reconstituted (Merrem) Administer 1,000 mg intravenously in the morning and 1,000 mg at noon and 1,000 mg before bedtime. 4 Active documented as of this encounter (statuses as of 02/29/2024) Active Problems Problem Noted Date Diagnosed Date [...] 07/29/2021 Closed fracture of fifth metatarsal bone 04/04/2 022 Depression 07/29/2021 Diabetic neuropathy 07/29/2021 Diabetic [...] Overview: Added automatically from request for surgery [id number] 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 [...] as of this encounter (statuses as of 02/29/2024) Resolved Problems Problem Noted Date Diagnosed Date [...] Silent myocardial infarction 03/23/2013 11/08/2018 Accelerate Clinical Trial*[id number] 01/24/2013 05/16/2015 Overview: ACCELERATE STUDY. Project # [id number], REDUCING MACHINE OPERATOR: Ben Hoover MD. CRC: DEBORAH Back. SUMMARY: To test the hypothesis that Evacetrapib 130 mg, in comparison to placebo, reduces the risk of major adverse coronary events in high-risk vascular disease patients. CONTACTS: During normal business hours, contact study staff at ; after hours Mail Inserter via the [facility] hospital gang bore operator [phone]. 24-hour Global Study Helpline: [phone]. Lipid levels should not be ordered/obtained while this subject is in the Accelerate study. Lipids are being managed in a blinded fashion. If lipid levels are inadvertently obtained, it is important that test results are NOT provided to the patient, study doctor, applications coordinator, or other study team members. Restricted meds while in the study: 1) niacin > 250 mg, 2) gemfibrozil with a potent [id number]. NINA on CPAP 06/28/2012 01/31/2020 Overview: 06/28/12 [...] as of this encounter (statuses as of 02/29/2024) Immunizations Name Administration Dates Next Due COVID-19 [...] [facility], Renee Wise [address] [place] [address] [place] [address] [place] [address] 03/22/2024 2:30 PM EST Telemedicine [facility], [place] [address] [place] [address] Carolee Manriquez PA-C [address] [place] [address] Edna Baum, [facility] [address] [place] [address] 05/11/2024 2:00 PM EST Office Visit Infectious Disease [facility] [place] [address] [place] [address] Sherry Roy MD [address] [place] [address] 07/11/2024 9:50 AM EDT Office Visit [address] [address] Sherry Maya, DO [address] [place] [address] Pending Results Name Type Priority Associated Diagnoses Date /Time CHEMISTRY-OUTSIDE Lab Routine 024 Scheduled Procedures Name Priority Associated Diagnoses Date/Ti [...] Additional history exists CKD PHOS USE SMARTSET 29680 06/03/202410/2023, 11/06/2021, 09/12/2020, Additional history exists HbA1c 06/04/2024 12/03/2023, 07/26, 03/27/2023, Additional history exists Albumin/Creatinine Ratio 06/19/2024 024, 08/15/2022, 11/06/2021, Additional history exists GFR 08/27/2024 02/28/2024, 04/2023, 02/22/2024, Additional history exists Depression Monitoring 09/07/2024 09/08/2023 CKD HGB USE SMARTSET 95624 02/25/202502/25, 02/26/2024, 02/22/2024, Additional history exists TSH 02/25/2025 02/26/2024, 1006/2023, 09/24/2023, Additional history exists DTap/Tdap Vaccines (3 - [...] the patient have Health Care Power of Change Management Facilitator? Yes, not currently available * Full Code [...] Relationshi p Communication Omar Lyle Adult Child [facility] re Agent Xi Mckeont Adult Child [facility] Care Agent Care Teams Harness Repairer Relationship Specialty Start Date End Date Sherry Maya DO [address] [place], [place] [id number] PCP - General Family Medicine 11/12/11 documented as of this encounter
--- OUTSIDE RECORDS SUMMARY | 2024-05-24 05:31 | External Medical Summary | Summary of Care ---
Author Name Unknown Organization [facility] Address [address] [place] [address] Phone [phone] Care Team Providers Care Loading Unit Operator Crimping Name Role Phone Sherry Maya DO Primary Care Provider + [phone] Reason for Referral * Evaluate & Treat - Unlimited Visits (Within 10 days (routine)) - Authorized Specialty Diagnoses / Procedures Referred By Contgrace t Referred To Contact Infectious Diseases / Infectious Disease Diagnoses Osteomyelitis of right foot, unspecified type (HCC) Kwame Parks MD [address] [place] [address] Referral ID Status Reason Start Date Expiration Date Visits Requested Visits Authorized [id number] Authorized Specialty Services Required 02/29/2024 999 999 [...] Description 02/29/2024 11:40 AM EST Office Visit [facility] [address] [place] [address] Kwame Parks MD [address] [place] [address] Osteomyelitis of right foot, unspecified type ([facility])*; S/P foot surgery, right; S/P BKA (below knee amputation) unilateral, left ([facility]); Peripheral arterial disease ([facility]); Type 2 diabetes mellitus with diabetic peripheral angiopathy without gangrene, with long-term current use of insulin ([facility]); Non-pressure chronic ulcer of right lower leg, unspecified ulcer stage ([facility]); Morbid (severe) obesity due to excess calories ([facility]); Insulin pump status; Hospital discharge follow-up; Diabetic polyneuropathy associated with type 2 diabetes mellitus ([facility]); Leg wound, right, initial encounter; Obesity hypoventilation syndrome ([facility]); Stage 3b chronic kidney disease ([facility]); Heart failure, systolic, due to CAD ([facility]); Acquired hypothyroidism; Proliferative diabetic retinopathy of both eyes with macular edema associated with type 2 diabetes mellitus ([facility]); Deep vein thrombosis (DVT) of proximal vein of left lower extremity, unspecified chronicity ([facility]); Insufficient social support; Ulcer of right foot with necrosis of muscle ([facility]); Gait difficulty Allergies Active Allergy Reactions Criticality Noted Date Comments Benzonatate 12/08/2016 choking Keyanna Pedraza Other (Please comment) High 04/10/20 09 Choking documented as of this encounter (statuses as of 03/01/2024) Medications Medication Sig Dispensed Refills Start Date End Date Status ONEUCH CHRIS MISCIndications:DM type 2, not at goal ([facility]) 3 Box Dosing Unit 1 5 Active Nitroglycerin 0.4 MG Sublingual Tablet Sublingual Place under the tongue every 5 minutes as needed. Up to 3 in 15 minutes. 25 Tab 11 5 Active Magnesium Oxide 400 MG CapsuleIndications:He art failure, systolic, due to CAD ([facility]),Automatic implantable cardioverter-defibril lator in situ,Chronic ischemic heart disease,Ischemic cardiomyopathy Take 1 Cap by mouth daily. 30 Cap 5 7 Active Glucose Blood (ONETOUCH VERIO) STRP USE TO TEST BLOOD GLUCOSE 8 TIMES A DAY 800 Strip 3 9 Active Insulin Aspart 100 UNIT/ML Injection Solution Inject under the skin. FOR USE IN PUMP Active [employer] Verio Flex System w/Device Kit Use as [...] unspecified chronicity,Heart failure, systolic, due to CAD ([facility]) Bariatric heavy duty walker- 2 wheels- please document patient's weight at 308 1 Each 1 Active DIURETIC TITRATION PLANIndications:Heart failure, systolic, due to CAD ([facility]) If no improvement on day [...] 4 Active Vitamin D (Ergocalciferol) 1.25 MG (03647 UT) Oral Capsule (Drisdol) TAKE ONE CAPSULE [...] Overview: Added automatically from request for surgery [id number] 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 [...] Silent myocardial infarction 03/23/2013 11/08/2018 Accelerate Clinical Trial*[id number] 01/24/2013 05/16/2015 Overview: ACCELERATE STUDY. Project # [id number], CHEMISTRY ASSOCIATE: Ben Hoover MD. CRC: DEBORAH Back. SUMMARY: To test the hypothesis that Evacetrapib 130 mg, in comparison to placebo, reduces the risk of major adverse coronary events in high-risk vascular disease patients. CONTACTS: During normal business hours, contact study staff at ; after hours Fixed Wing Aircraft Flight Mechanic via the [facility] hospital sash clamp operator [phone]. 24-hour Global Study Helpline: [phone]. Lipid levels should not be ordered/obtained while this subject is in the Accelerate study. Lipids are being managed in a blinded fashion. If lipid levels are inadvertently obtained, it is important that test results are NOT provided to the patient, study doctor, flight operation coordinator, or other study team members. Restricted meds while in the study: 1) niacin > 250 mg, 2) gemfibrozil with a potent [id number]. NINA on CPAP 06/28/2012 01/31/2020 Overview: 06/28/12 [...] as of this encounter Progress Notes * wKame Parks MD - 02/29/2024 11:53 AM EST [...] disease, chronic, stage III (GFR 30-59 ml/min) ([facility]) History of osteomyelitis PHT (pulmonary hypertension) ([facility]) Insomnia Type 2 diabetes mellitus (HCC) Non-pressure chronic ulcer of unspecified part of right lower leg with unspecified severity ([facility]) VT (ventricular tachycardia) ([facility]) NINA (obstructive sleep apnea) Atrial fibrillation (HCC) Insulin pump status S/P BKA (below knee amputation) unilateral, left (HCC) Major depressive disorder, recurrent, mild (HCC) Type 2 diabetes mellitus with diabetic peripheral angiopathy without gangrene ([facility]) Paroxysmal atrial fibrillation ([facility]) Insufficient social support Anemia Anxiety Atherosclerosis of coronary artery Chronic diastolic heart failure (HCC) Chronic pain Closed fracture of fifth metatarsal bone Cor pulmonale, chronic ([facility]) Depression Diabetic neuropathy ([facility]) Diabetic retinopathy ([facility]) Edema Elevated troponin level History of diabetic ulcer of foot Numbness Peripheral arterial disease ([facility]) Right heart failure (secondary to left heart failure) ([facility]) ICD (implantable cardioverter-defibrillator) battery depletion Statin intolerance Status post shoulder surgery Venous stasis ulcer ([facility]) Mass of leg, right Other persistent atrial fibrillation ([facility]) Body mass index (BMI) of 50.0 to 59.9 in adult ([facility]) Morbid (severe) obesity due to excess calories ([facility]) Ulcer of right foot with necrosis of muscle ([facility]) Current Outpatient Medications Medication Sig Dispense Refill SiBEAMTOUCH LANCETS MISC 3 Box Dosing Unit 1 Nitroglycerin 0.4 [address] Sub[address] Tablet Sublingual Place under the tongue every 5 minutes as needed.Up to 3 in 15 minutes. 25 Tab 11 Glucose Blood (SiBEAMTOUCH VERIO) STRP USE TO TEST BLOOD GLUCOSE 8 TIMES A DAY 800 Strip 3 Insulin Aspart 100 UNIT/ML Injection Solution Inject under the skin. FOR USE IN PUMP [employer] Wave TechnologiesTouch Verio Flex System w/Device Kit Use [...] Capsule 0 Vitamin D (Ergocalciferol) 1.25 MG (68655 UT) Oral Capsule (Drisdol) TAKE ONE CAPSULE [...] extremity (HCC) 07/03/2020 Acute hypoxemic respiratory failure ([facility]) 07/29/2021 Acute renal failure superimposed on chronic kidney disease ([facility]) 07/29/2021 CHATO (acute kidney injury) ([facility]) 01/04/2017 Last Assessment & Plan: Sec to Cor pulmonale and v tach-- improving --avoid nephrotoxic agents --IVF's held d/t fluid overload - willmonitor closely --daily BMP Amputated great toe of right foot ([facility]) 06/28/2019 Atrial fibrillation ([facility]) Bacteremia due to group B Streptococcus 07/29/2021 Cellulitis 07/29/2021 Cellulitis of right lower extremity 11/09/2009 DM type 2, not at goal ([facility]) Dyslipidemia, goal LDL below 70 HFrEF (heart failure with reduced ejection fraction) ([facility]) HTN, goal below 140/80 Hyperglycemia due to type 2 diabetes mellitus ([facility]) 07/29/2021 Hypokalemia 07/29/2021 Hypomagnesemia 07/29/2021 Insulin pump status 01/11/2021 Adams fracture 07/29/2021 Malfunction of implantable defibrillator ventricular (ICD) lead 07/29/2021 KS (myocardial infarction) ([facility]) Non-healing surgical wound 07/29/2021 NINA treated with BiPAP Osteomyelitis of left foot ([facility]) 01/08/2021 Pneumonia due to COVID-19 virus 07/29/2021 Right foot ulcer ([facility]) 12/05/2019 SARS-CoV-2 positive 07/29/2021 Stage 3b chronic kidney disease ([facility]) 03/05/2020 Per CKD protocol Ventricular tachycardia ([facility]) 06/09/2019 Volume overload 07/29/2021 Volume overload state of heart 07/29/2021 Past Surgical History: Procedure Laterality Date AMPUTATION OF LOWER LEG Left 01/15/2021 AMPUTATION LEG THROUGH TIBIA AND FIBULA performed by Heron Hill MD at [facility] BONE DEBRIDEMENT, FIRST 20 CM2 Left 12/05/2019 DEBRIDEMENT SKIN SUBCUTANEOUS TISSUE MUSCLE AND BONE performed by Heron Hill MD at [facility] COLONOSCOPY, DIAGNOSTIC (RECTUM) 04/03/2015 TVA polyps, diverticulosis, repeat 3 yrs/[facility] COLONOSCOPY, DIAGNOSTIC (RECTUM) 11/13/2015 adenomatous polyp, diverticulosis, repeat 3 yrs/[facility] COLONOSCOPY, DIAGNOSTIC (RECTUM) 06/01/2020 adenomatous polyps, diverticulosis, poor prep, repeat 3 yrs / [facility] CORONARY ANGIOGRAPHY W/LEFT HEART CATH 09/25/2010 CORONARY ANGIOGRAPHY W/LEFT HEART CATH performed by SUSAN SPENCER at [facility] CORONARY ANGIOGRAPHY W/LEFT HEART CATH Right 06/09/2019 CORONARY ANGIOGRAPHY W/LEFT HEART CATH performed by Isra Melton DO at [facility] EGD, FLEXIBLE, DIAGNOSTIC 04/03/2015 reflux esophagitis/[facility] ELECTROPHYSIOLOGY EVAL & ABLATE VENTRICULAR TACH Bilateral 11/07/2019 VT ISCHEMIC EPS AND CATHETER ABLATION performed by Genesis Skaggs MD at [facility] INFORMATION 04/27/1980 tmj INSERT/REPLACE DEFIBRILLATOR W/TRANSVERSE LEAD(S) 06/01/2012 NON-THOR ICD LEADS AND GENERATOR IMPLANT performed by Dipika Medina IV, MD at [facility] IR VENOUS ACCESS NON-MEDIPORT 06/13/2019 MISCELLANEOUS ORDER ([facility] ONLY) 04/27/2009 Left shoulder decompression for impingement [place] LASER SURGERY OF EYE Bilateral 2020 REMOVE [...] file Social History Narrative 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 Social Determinants of Health [...] Stability Do you currently live in a fdc or have no steady place to sleep [...] Anticoagulation [facility], Renee Wise [address] [place] [address] [place] [address] [facility], [address] [place] [address] 03/22/2024 2:30 PM EST Telemedicine [facility], [place] [address] [place] [address] Carolee Manriquez PA-C [address] [place] [address] Edna Baum, Community Health Craniologist [address] [place] [address] 05/11/2024 2:00 PM EST Office Visit Infectious Disease [facility] [address] [place] [address] Sherry Roy MD [address] [place] [address] 07/11/2024 9:50 AM EDT Office Visit [facility] [address] [place] [address] Sherry Maya, DO [address] [place] [address] Scheduled Procedures Name Priority Associated Diagnoses Date/Ti [...] Additional history exists CKD PHOS USE SMARTSET 00142 06/03/2024 02/0 10/2023, 11/06/2021, 09/12/2020, Additional history exists HbA1c 06/04/2024 12/03/2023, 07/26, 03/27/2023, Additional history exists Albumin/Creatinine Ratio 06/19/2024 024, 08/15/2022, 11/06/2021, Additional history exists GFR 08/27/2024 02/28/2024, 04/2023, 02/22/2024, Additional history exists Depression Monitoring 09/07/2024 09/08/2023 TSH 02/25/2025 02/26/2024, 1006/2023, 09/24/2023, Additional history exists CKD HGB USE SMARTSET 41818 02/27/202502/27, 02/26/2024, 02/26/2024, Additional history exists DTap/Tdap [...] the patient have Health Care Power of Poultry Farmer Meat? Yes, not currently available * Full Code [...] Relationshi p Communication Omar Lyle Adult Child [facility] Ga re Agent Xi Mckeont Adult Child [facility] Care Agent Care Teams Loading Unit Operator Crimping Relationship Specialty Start Date End Date Sherry Maya DO [address] [place] [address] PCP - General Family Medicine 11/12/11 documented as of this encounter"
--- OUTSIDE RECORDS SUMMARY | 2024-05-24 05:32 | External Medical Summary ---
Author Name Unknown Address Unknown Organization [id number]:LABORATORY [facility] [place] - [address] [place] [address] Laboratory Report Ordering Provider Test Date Status ADEN ESTRADA 02/26/2024 07:30:00 Final Observation Date Value Abnormality Reference (Units ) Status TSH 02/26/2024 07:30:00 4.14 0.27-4.20 (uIU/mL) Final Performing Location [facility]ORY [facility] - [address] [place] [address]
--- OUTSIDE RECORDS SUMMARY | 2024-05-24 05:32 | External Medical Summary ---
Author Name Unknown Address Unknown Organization [id number]:[facility] [place] [address] [place] [address] Laboratory Report Ordering Provider Test Date Status ADEN ESTRADA 02/26/2024 07:30:00 Final Observation Date Value Abnormality Reference (Units ) Status Ferritin 02/26/2024 07:30:00 341 30-400 (ng /mL) Final Performing Location [facility] - [address] [place] [address]
--- OUTSIDE RECORDS SUMMARY | 2024-05-24 05:32 | External Medical Summary ---
Author Name Unknown Address Unknown Organization [id number]:[facility]ORY [facility] [place] - [address] [place] [address] Laboratory Report Ordering Provider Test Date Status NATALIEADEN HUMBERTO 02/26/2024 07:30:00 Final Observation Date Value Abnormality Reference (Units ) Status SYNC LEUKOCYTES IN BLOOD BY AUTOMATED COUNT 02/26/2024 07:30:00 8.38 4.00-10.80 (K/uL) Final Segs 02/26/2024 07:30:00 72.6 40.0-75.0 (%) Final Lymphs % 02/26/2024 07:30:00 8.6 Below low normal 18.0-42.0 (%) Final Monos 02/26/2024 07:30:00 9.7 1.0-11.0 (%) Final Eosinophils 02/26/2024 07:30:00 7.0 Above high normal 0.0-6.0 (%) Final Basos 02/26/2024 07:30:00 1.6 0.0-2.0 (%) Final Immature Granulocyte, Percent 02/26/2024 07:30:00 0.5 0.0-2.0 (%) Final Absolute Segs 02/26/2024 07:30:00 6.09 1.80-7.70 (K/uL) Final Lymphs, absolute 02/26/2024 07:30:00 0.72 Below low normal 1.00-4.80 (K/ul) Final Monos, Abs 02/26/2024 07:30:00 0.81 0.00-1.10 (K/uL) Final Eos, Abs 02/26/2024 07:30:00 0.59 0.00-0.70 (K/uL) Final Basos, Abs 02/26/2024 07:30:00 0.13 0.00-0.20 (K/uL) Final Immature Granulocytes, Number 02/26/2024 07:30:00 0.04 0.00-0.20 (K/uL) Final Performing Location LAB[facility]ORY [facility] [place] - [address] [facility] [address]
--- OUTSIDE RECORDS SUMMARY | 2024-05-24 05:32 | External Medical Summary ---
Author Name Unknown Address Unknown Organization K01:[facility]ATORY [facility] - [address] [place] [address] Laboratory Report Ordering Provider Test Date Status ADEN ESTRADA 02/26/2024 07:30:00 Final Observation Date Value Abnormality Reference (Units ) Status Ovalocytes [Presence] in Blood by Light microscopy 02/26/2024 07:30:00 Moderate Abnormal None Seen Final Performing Location [facility] - [address] [place] [address]
--- OUTSIDE RECORDS SUMMARY | 2024-05-24 05:32 | External Medical Summary ---
Author Name Unknown Address Unknown Organization K01:LABORATORY [facility] - [facility] [place] [address] Laboratory Report Ordering Provider Test Date Status ADEN ESTRADA 02/26/2024 07:30:00 Final Observation Date Value Abnormality Reference (Units ) Status WBC, Total 02/26/2024 07:30:00 8.38 4.00-10.8 0 (K/uL) Final RBC 02/26/2024 07:30:00 4.22 4.50-5.25 (M/uL) Final Hemoglobin 02/26/2024 07:30:00 12.1 Below low normal 14 .0-16.8 (g/dL) Final Anemia reflex testing trigge rs on a HGB < 12.0 for Females and HGB < 13.0 for Males in accordance with the WHO Anemia Guidelines
Anemia reflex testing triggers on a HGB < 12.0 for Females and HGB < 13.0 for Males in accordance with the WHO Anemia Guidelines HCT 02/26/2024 07:30:00 39.2 Below low normal 40. 0-48.4 (%) Final MCV 02/26/2024 07:30:00 92.9 82.0-99.5 (fL) Final MCH 02/26/2024 07:30:00 28.7 27.0-34.0 (pg) Final MCHC 02/26/2024 07:30:00 30.9 32.0-36.0 (g/dL) Final RDW 02/26/2024 07:30:00 18.8 11.5-15.5 (%) Final Platelets 02/26/2024 07:30:00 328 140-400 (K /uL) Final MPV 02/26/2024 07:30:00 10.8 6.6-11.1 ( fL) Final Nucleated erythrocytes/100 leukocytes [Ratio] in Blood by Automated count 02/26/2024 07:30:00 0 <=0 (/100 WBCs) Final Performing Location LABORATORY [facility] - [address] [facility] [address]
--- OUTSIDE RECORDS SUMMARY | 2024-05-24 05:32 | External Medical Summary | Summary of Care ---
Author Name Unknown Organization [facility] Address [address] [facility] [place] [address] Phone [phone] Care Team Providers Care Marine Equipment Sales Engineer Name Role Phone Sherry Maya DO Primary Care Provider [phone] Reason for Visit * Reason Comments Dosage Adjustment Via Phone (anticoag Cl inic) Encounter Details Date Type Department Care Team (Late st Contact Info) Description 02/29/2024 6:00 AM EST Anticoagulation Centralized Clinical Pharmacy Services, Renee Wise [address] [place] [address] [place] [address] [facility], [address] [place] [address] Chronic deep vein thrombosis (DVT) of proximal vein of left lower extremity (HCC)* Allergies Active Allergy Reactions Criticality Noted Date Comments Benzonatate 12/08/2016 choking Keyanna Pedraza Other (Please comment) High 04/10/20 09 Choking documented as of this encounter (statuses as of 02/29/2024) Medications Medication Sig Dispensed Refills Start Date End Date Status KIT PEREZ MISCIndications:DM type 2, not at goal ([facility]) 3 Box Dosing Unit 1 04/17/2015 Active Nitroglycerin 0.4 MG Sublingual Tablet Sublingual Place under the tongue every 5 minutes as needed. Up to 3 in 15 minutes. 25 Tab 11 04/17/2015 Active Magnesium Oxide 400 MG CapsuleIndications:Hea rt failure, systolic, due to CAD ([facility]),Automatic implantable cardioverter-defibrill ator in situ,Chronic ischemic heart disease,Ischemic cardiomyopathy Take 1 Cap by mouth daily. 30 Cap 5 03/16/2017 Active Additional Information Patient not taking.Reported on 02/22/2024 Glucose Blood (ScaleogyTOUCH VERIO) STRP USE TO TEST BLOOD GLUCOSE 8 TIMES A DAY 800 Strip 3 03/18/2019 Active Insulin Aspart 100 UNIT/ML Injection Solution Inject under the skin. FOR USE IN PUMP Active [employer]ident [employer] Verio Flex System w/Device Kit Use as [...] diabetes mellitus due to underlying condition ([facility]),Ulcer of right foot with necrosis of muscle ([facility]),Right knee pain, unspecified chronicity,Heart failure, systolic, due to CAD ([facility]) Bariatric heavy duty walker- 2 wheels- please document patient's weight at 308 1 Each 02/07/2021 Active DIURETIC TITRATION PLANIndications:Heart failure, systolic, due to CAD ([facility]) If no improvement on day [...] Tablet 3 04/12/2021 Active Additional Information Patient taking differently: 50 mgOralTID ;;18, Reported on 02/22/2024 Albuterol Sulfate 108 (90 Base) MCG/ACT Inhalation Aerosol Powder Breath ActivatedIndications:A sthma in remission Inhale 2 Puffs by mouth 4 times a day as needed for Wheezing. 3 Each 3 04/12/2021 Active Aspirin 81 MG Oral Tablet ChewableIndications:Dy slipidemia, goal LDL below 100,DM type 2, not at goal ([facility]),Diabetic polyneuropathy associated with type 1 diabetes mellitus (HCC),HTN, goal below 130/80,Abnormal electrocardiogram Take 1 Tablet by mouth daily. With food. 100 Tablet 5 04/12/2021 Active Acetaminophen 325 MG Oral Tablet (Tylenol) Take 2 Tablets by mouth as needed (for mild to moderate reaction (infusion reaction protocol)). 2 Tablet 04/12/2021 Active Meclizine HCl 12.5 MG Oral Tablet (Antivert) Take by mouth 1 Tablet as needed in the morning AND 1 Tablet as needed at noon AND 1 Tablet as needed in the evening for Dizziness. 30 Tablet 1 05/30/2021 Active Additional Information Patient not taking.Reported on 02/22/2024 Fluticasone Propionate 50 MCG/ACT Nasal SuspensionIndications: Otalgia, [...] and 1 Tablet before bedtime. 60 Tablet 09/15/2022 Active Levothyroxine Sodium 88 MCG Oral [...] by mouth in the morning. 100 Capsule 06/03/2023 Active Triamcinolone Acetonide 0.1 % External [...] minutes before meals 30 Tablet 08/31/2023 Active Additional Information Patient not taking.Reported on 02/22/2024 Metoprolol Succinate ER 50 MG Oral Tablet [...] abdominal pain 40 Tablet 2 11/30/2023 Active oxyCODONE HCl 5 MG Oral Tablet (Oxy IR) Take 1 Tablet by mouth every 8 hours as needed for Pain, Severe. 12 Tablet 12/21/2023 Active Additional Information Patient not taking.Reported on 02/22/2024 Pregabalin 50 MG Oral Capsule (Lyrica)Indications:Di abetic polyneuropathy associated with type 2 diabetes mellitus (HCC),S/P BKA (below knee amputation) unilateral, left (HCC),Leg wound, right, initial encounter Take 1 Capsule by mouth in the morning and 1 Capsule at noon and 1 Capsule before bedtime. 60 Capsule 12/31/2023 Active Vitamin D (Ergocalciferol) 1.25 MG (07107 UT) Oral Capsule (Drisdol) TAKE ONE CAPSULE BY MOUTH EVERY WEEK 12 Capsule 01/04/2024 Active oxyCODONE HCl 10 MG Oral Tablet (Roxicodone)Indication s:Diabetic polyneuropathy associated with type 2 diabetes mellitus (HCC),S/P BKA (below knee amputation) unilateral, left (HCC),Leg wound, right, initial encounter Take 1 Tablet by mouth every 6 hours as needed for Pain, Severe. 20 Tablet 02/24/2024 Active documented as of this encounter (statuses as of 02/29/2024) Active Problems Problem Noted Date Diagnosed Date Morbid (severe) obesity due to excess calories [...] Overview: Added automatically from request for surgery [id number] 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 [...] Silent myocardial infarction 03/23/2013 11/08/2018 Accelerate Clinical Trial*[id number] 01/24/2013 05/16/2015 Overview: ACCELERATE STUDY. Project # [id number], VETERINARY VIRUS SERUM INSPECTOR: Ben Hoover MD. CRC: DEBORAH Back. SUMMARY: To test the hypothesis that Evacetrapib 130 mg, in comparison to placebo, reduces the risk of major adverse coronary events in high-risk vascular disease patients. CONTACTS: During normal business hours, contact study staff at ; after hours Systems Checkout Mechanic via the [facility] dicer operator [phone]. 24-hour Global Study Helpline: [phone]. Lipid levels should not be ordered/obtained while this subject is in the Accelerate study. Lipids are being managed in a blinded fashion. If lipid levels are inadvertently obtained, it is important that test results are NOT provided to the patient, study doctor, mds coordinator, or other study team members. Restricted meds while in the study: 1) niacin > 250 mg, 2) gemfibrozil with a potent [id number]. NINA on CPAP 06/28/2012 01/31/2020 Overview: 06/28/12 [...] as of this encounter Progress Notes * Maldonado Lilly CPhT - 02/29/2024 10:27 AM EST Contacts Contact Date/Time Type Contact Phone/Fax 02/29/2024 10:25 AM EST Phone (Outgoing) Ben Lyle (Self) [phone] (M) Left Message Subjective Advised patient to contact Anticoagulation Clinic if any unusual bruising or bleeding, recent illness, changes in medication, or questions/concerns. PT/INR results, Coumadin dose instructions, and next PT/INR date communicated as noted by Pharmacist: Yes Maldonado Lilly CPhT 02/29/2024, 10:27 AM * Jaimee Gandhi [facility] - 02/29/2024 9:44 AM EST Images from the original note were not included. Coumadin Clinic (region specific) Objective Current Warfarin Dose As of 02/29/2024 Warfarin maintenance plan: 2 mg (2 mg x 1) every Mon, Sat; 4 mg (2 mg x 2) all other days INR Result As of 02/29/2024 INR goal: 2.0-3.0 INR used for dosin.9 (02/26/2024) Assessment & Plan Warfarin Plan As of 02/29/2024 Full warfarin instructions: 02/28: 4 mg; Otherwise 2 mg every Mon, Sat; 4 mg all other days Next INR check: 03/07/2024 Repeat PT/INR in 1 week(s) Weekly dose: not changed Additional Dosing Information: Description GML MTMeño- COSMO (patient has 5mg and 1mg tabs) Tech to contact patient with dose instructions as noted. Jaimee Gandhi RPh 02/29/2024, 9:44 AM documented in this encounter Plan of Treatment Upcoming Encounters Date Type Department Care Team (Late st Contact Info) Description 02/29/2024 11:40 AM EST Office Visit [facility] [address] [place] [address] Kwame Parks MD [address] [place] [address] 03/22/2024 2:30 PM EST Telemedicine [facility], [place] [address] [place] [address] Carolee Manriquez PA-C [address] [place], [place] [phone] Edna Baum, [facility] [address] [place] [address] Scheduled Procedures Name Priority Associated Diagnoses Date/Ti me COLONOSCOPY FLEXIBLE PROXIMAL DIAGNOSTIC Recall History of colon polyps Health Maintenance Due Date Last Done Comments Cologuard 11/26/2008 Fecal Occult Blood Test 11/26/2008 Sigmoidoscopy 11/26/2008 Diabetic Foot Exam 08/16/2022 08/16/2021, 0 05/02/2020, 11/08/2018, Additional history exists Colonoscopy 06/01/2023 06/01/2020, 10/25, 04/03/2015 Colorectal Cancer Screening 06/01/2023 Diabetic Eye Exam 06/06/2023 06/06/2022, , 06/06/2022, Additional history exists COVID-19 Vaccine ( season) 2023 05/15/2021, 05/15/2021, 10/04/2020, Additional history exists Influenza Vaccine (FLU shot) (#1) 2023 01/23/2023, 01/23/2023, 02/12/2022, Additional history exists CKD PHOS USE SMARTSET 25501 06/03/202410/2023, 11/06/2021, 09/12/2020, Additional history exists HbA1c 06/04/2024 12/03/2023, 07/26, 03/27/2023, Additional history exists Albumin/Creatinine Ratio 06/19/2024 024, 08/15/2022, 11/06/2021, Additional history exists GFR 08/25/2024 02/26/2024, 01/26, 01/29/2024, Additional history exists Depression Monitoring 09/07/2024 09/08/2023 CKD HGB USE SMARTSET 31229 02/25/202502/25, 02/26/2024, 02/22/2024, Additional history exists TSH 02/25/2025 02/26/2024, 06/2023, 09/24/2023, Additional history exists DTap/Tdap Vaccines (3 - Td or Tdap) 12/13/2025 12/14/2015, 04/10/2008 Pneumococcal Vaccine: Pediatrics (0 to 5 Years) and At-Risk Patients (6 to 64 Years) (3 of 3 - PPSV23 or PCV20) 11/26/2028 01/04/2017, 09/08/2006 Hepatitis B Vaccine Completed 11/16/2017, 07/14/2017, 05/14/2017 Zoster Vaccines Completed 04/10/2020, 01/17/2020 HPV (Gardasil) Vaccine Aged Out No lo [...] patient have Health Care Power of Clinical Office Technician? Yes, not currently available * Full [...] Relationshi p Communication Tynnia Valdo Adult Child [facility] Health Ca re Agent Xi Lyle Adult Child Health Care Agent Care Teams Marine Equipment Sales Engineer Relationship Specialty Start Date End Date Sherry Maya DO [address] [place], [place] [id number] PCP - General Family Medicine 11/12/11 documented as of this encounter
--- OUTSIDE RECORDS SUMMARY | 2024-05-24 05:32 | External Medical Summary ---
Author Name Unknown Address Unknown Organization [id number]:[facility] - [address] [place] [address] Laboratory Report Ordering Provider Test Date Status ALIE ROPER 02/26/2024 07:30:00 Final Standing order for pt/inr. < br/>Please draw pt/inr every 1 to 4 weeks as requested
Results to [facility]

Warfarin Therapy
INR: 2.0-3.0 conventional anticoagulation
INR: 2.5-3.5 high intensity anticoagulation Observation Date Value Abnormality Reference (Units ) Status PT 02/26/2024 07:30:00 21.7 Above high normal 11 .6-15.2 (seconds) Final INR 02/26/2024 07:30:00 1.9 Above high normal 0. 8-1.2 Final Performing Location [facility] - [address] [place] [address]
--- OUTSIDE RECORDS SUMMARY | 2024-05-24 05:32 | External Medical Summary ---
Author Name Unknown Address Unknown Organization [id number]:[facility] [place] [address] [place] [address] Laboratory Report Ordering Provider Test Date Status ADEN ESTRADA 02/26/2024 07:30:00 Final Observation Date Value Abnormality Reference (Units ) Status Iron 02/26/2024 07:30:00 22 Below low normal 45-176 (ug/dL) Final Iron-binding capacity 02/26/2024 07:30:00 232 Below low normal 250-425 (ug/dL) Final Transferrin Sat % 02/26/2024 07:30:00 9 Below low normal 15-55 (%) Final Performing Location [facility] - [address] [place] [address]
--- OUTSIDE RECORDS SUMMARY | 2024-05-24 05:32 | External Medical Summary | Summary of Care ---
Author Name Unknown Organization [facility] Address [address] [facility] [place] [address] Phone [phone] Care Team Providers Care Procurement Consultant Name Role Phone Sherry Maya DO Primary Care Provider [phone] Reason for Visit * Reason Comments Dosage Adjustment Via Phone (anticoag Cl inic) Encounter Details Date Type Department Care Team (Late st Contact Info) Description 02/26/2024 6:00 PM EDT Anticoagulation Centralized Clinical Pharmacy Services, Renee Wise [address] [place] [address] [place] [phone] [place] [address] Anticoagulation management encounter*; Chronic deep vein thrombosis (DVT) of proximal vein of left lower extremity (HCC) Allergies Active Allergy Reactions Criticality Noted Date Comments Benzonatate 12/08/2016 choking Keyanna Pedraza Other (Please comment) High 04/10/20 09 Choking documented as of this encounter (statuses as of 02/26/2024) Medications Medication Sig Dispensed Refills Start Date End Date Status KIT PEREZ MISCIndications:DM type 2, not at goal ([facility]) 3 Box Dosing Unit 1 04/17/2015 Active Nitroglycerin 0.4 MG Sublingual Tablet Sublingual Place under the tongue every 5 minutes as needed. Up to 3 in 15 minutes. 25 Tab 11 04/17/2015 Active Magnesium Oxide 400 MG CapsuleIndications:Hea rt failure, systolic, due to CAD ([facility]),Automatic implantable cardioverter-defibrill ator in situ,Chronic ischemic heart disease,Ischemic cardiomyopathy Take 1 Cap by mouth daily. 30 Cap 5 03/16/2017 Active Additional Information Patient not taking.Reported on 02/22/2024 Glucose Blood (MyowsTOUCH VERIO) STRP USE TO TEST BLOOD GLUCOSE 8 TIMES A DAY 800 Strip 3 03/18/2019 Active Insulin Aspart 100 UNIT/ML Injection Solution Inject under the skin. FOR USE IN PUMP Active [employer] Verio Flex System w/Device Kit Use as [...] unspecified chronicity,Heart failure, systolic, due to CAD ([facility]) Bariatric heavy duty walker- 2 wheels- please document patient's weight at 308 1 Each 02/07/2021 Active DIURETIC TITRATION PLANIndications:Heart failure, systolic, due to CAD ([facility]) If no improvement on day [...] Additional Information Patient taking differently: 50 mgOralTID ;12;18, Reported on 02/22/2024 Albuterol Sulfate 108 (90 [...] by mouth daily. With food. 100 Tablet 04/12/2021 Active Acetaminophen 325 MG Oral Tablet [...] s:S/P BKA (below knee amputation) unilateral, left ([facility]) Apply topically to affected area [...] stump. Avoid on open wounds 60 mL 06/17/2023 Active Atorvastatin Calcium 80 MG Oral [...] 12/31/2023 Active Vitamin D (Ergocalciferol) 1.25 MG (86982 UT) Oral Capsule (Drisdol) TAKE ONE CAPSULE [...] as of this encounter (statuses as of 02/26/2024) Active Problems Problem Noted Date Diagnosed Date [...] Overview: Added automatically from request for surgery [id number] 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 [...] as of this encounter (statuses as of 02/26/2024) Resolved Problems Problem Noted Date Diagnosed Date [...] Silent myocardial infarction 03/23/2013 11/08/2018 Accelerate Clinical Trial*[id number] 01/24/2013 05/16/2015 Overview: ACCELERATE STUDY. Project # [id number], MONEY LAUNDERING INVESTIGATOR: Ben Hoover MD. CRC: DEBORAH Back. SUMMARY: To test the hypothesis that Evacetrapib 130 mg, in comparison to placebo, reduces the risk of major adverse coronary events in high-risk vascular disease patients. CONTACTS: During normal business hours, contact study staff at ; after hours Cisco Network Engineer via the [facility] hospital tying in machine operator [phone]. 24-hour Global Study Helpline: [phone]. Lipid levels should not be ordered/obtained while this subject is in the Accelerate study. Lipids are being managed in a blinded fashion. If lipid levels are inadvertently obtained, it is important that test results are NOT provided to the patient, study doctor, conservation coordinator, or other study team members. Restricted meds while in the study: 1) niacin > 250 mg, 2) gemfibrozil with a potent [id number]. NINA on CPAP 06/28/2012 01/31/2020 Overview: 06/28/12 [...] as of this encounter (statuses as of 02/26/2024) Immunizations Name Administration Dates Next Due COVID-19 [...] of this encounter Progress Notes * Jaimee Gandhi RPh - 02/26/2024 3:46 PM EDT Noted, pt was short check due to recent hosp d/c. Pt has weekly dose will follow up Thursday AM once INR results. * Aye Diana', machine gunner - 02/26/2024 3:19 PM EDT Called [facility] to check on INR results that have been in process from this morning. Spoke with Jaren lira informed that specimen was dropped off at a clinic around 11 and was picked up a quart till 2. Currently making its way to [facility]. Was told that the results may not be process before end ofday but will shannon as high priority once arriving to [facility]. [facility] please advise. Aye Diana Citizenship Instructor Centralized Clinical Pharmacy Services [address] [place] [address] Dr. Val[address] [place] [address] [id number] 02/26/2024,3:21 PM documented in this encounter Plan of Treatment Upcoming Encounters Date Type Department Care Team (Late st Contact Info) Description 02/29/2024 6:00 AM EST Anticoagulation [facility] Services, Renee Wise [address] [place] [address] [place] [address] [facility], [address] [place] [address] 02/29/2024 11:40 AM EST Office Visit [address] [phone] Kwame Parks MD [address] [place], [place] [phone] 03/22/2024 2:30 PM EST [facility]icine [facility], [place] [address] [place] [address] Carolee Manriquez PA-C [address] [place] [address] Edna Baum, [facility] [address] [place] [address] Scheduled Procedures Name Priority Associated Diagnoses Date/Ti [...] Additional history exists CKD PHOS USE SMARTSET 40707 06/03/2024 02/0 10/2023, 11/06/2021, 09/12/2020, Additional history exists HbA1c 06/04/2024 12/03/2023, 07/26, 03/27/2023, Additional history exists Albumin/Creatinine Ratio 06/19/2024 024, 08/15/2022, 11/06/2021, Additional history exists GFR 08/22/2024 02/22/2024, 1007/2023, 01/28/2024, Additional history exists Depression Monitoring 09/07/2024 09/08/2023 TSH 01/27/2025 01/28/2024, 08/27, 08/08/2022, Additional history exists CKD HGB USE SMARTSET 67448 02/21/202502/21, 01/29/2024, 01/28/2024, Additional history exists DTap/Tdap Vaccines (3 - [...] encounter- Primary Encounter for therapeutic drug monitoring Chronic deep vein thrombosis (DVT) of proximal vein of left lower extremity (HCC) documented in this encounter Advance Directives [...] the patient have Health Care Power of Legislative Assistant? Yes, not currently available * Full [...] Relationshi p Communication Omar Valdo Adult Child [facility] Health [place] re Agent Xi Mckeont Adult Child Health Care Agent Care Teams Procurement Consultant Relationship Specialty Start Date End Date Sherry Maya DO [address] [place] [address] PCP - General Family Medicine 11/12/11 documented as of this encounter
--- OUTSIDE RECORDS SUMMARY | 2024-05-24 05:32 | External Medical Summary | Summary of Care ---
Author Name Unknown Organization [facility] Address [address] [place] [address] Phone [phone] Care Team Providers Care Poker Machine Attendant Name Role Phone Sherry Maya DO Primary Care Provider [phone] Encounter Details Date Type Department Care Team (Late st Contact Info) Description 02/24/2024 Referral Triage Care Coordination and Integration [address] [place] [address] Shelia Camacho, NINA [address] [place], [place] [id number] Allergies Active Allergy Reactions Criticality Noted Date Comments Benzonatate 12/08/2016 choking Keyanna Pedraza Other (Please comment) High 04/10/20 09 Choking documented as of this encounter (statuses as of 02/24/2024) Medications Medication Sig Dispensed Refills Start Date [...] Patient not taking.Reported on 02/22/2024 Glucose Blood (ONETOUCH VERIO) STRP USE TO [...] mellitus due to underlying condition ([facility]),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),Right knee pain, unspecified chronicity,Heart failure, systolic, due to CAD ([facility]) Bariatric heavy duty walker- 2 wheels- please document patient's weight at 308 1 Each 02/07/2021 Active DIURETIC TITRATION PLANIndications:Heart failure, systolic, due to CAD ([facility]) If no improvement on day [...] type 2, not at goal ([facility]),Diabetic polyneuropathy associated with type 1 diabetes [...] OTHER MEDS 100 Tablet 5 01/08/2023 Active Ammonium Lactate 12 % External Lotion (Lac-Hydrin)Indication s:S/P BKA (below knee amputation) unilateral, left (HCC) Apply topically to affected area as needed for Dry Skin. Apply to rash on legs 400 g 1 06/03/2023 Active Omeprazole 20 MG Oral Capsule [...] 12/31/2023 Active Vitamin D (Ergocalciferol) 1.25 MG (06032 UT) Oral Capsule (Drisdol) TAKE ONE CAPSULE [...] as of this encounter (statuses as of 02/24/2024) Active Problems Problem Noted Date Diagnosed Date [...] Overview: Added automatically from request for surgery [id number] 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 [...] as of this encounter (statuses as of 02/24/2024) Resolved Problems Problem Noted Date Diagnosed Date [...] Silent myocardial infarction 03/23/2013 11/08/2018 Accelerate Clinical Trial*[id number] 01/24/2013 05/16/2015 Overview: ACCELERATE STUDY. Project # [id number], SPECIAL PROCEDURES TECHNOLOGIST: Ben Hoover MD. CRC: DEBORAH Back. SUMMARY: To test the hypothesis that Evacetrapib 130 mg, in comparison to placebo, reduces the risk of major adverse coronary events in high-risk vascular disease patients. CONTACTS: During normal business hours, contact study staff at ; after hours Graphic Illustrator via the [facility] hospital operator cavity pump [phone]. 24-hour Global Study Helpline: [phone]. Lipid levels should not be ordered/obtained while [...] 250 mg, 2) gemfibrozil with a potent [id number]. NINA on CPAP 06/28/2012 01/31/2020 Overview: 06/28/12 [...] as of this encounter (statuses as of 02/24/2024) Immunizations Name Administration Dates Next Due COVID-19 [...] Care Team (Late st Contact Info) Description 02/25/2024 11:20 AM EDT Office Visit [facility] [address] [place] [phone] Kwame Parks MD [address] [place] [address] 02/25/2024 6:00 PM EDT Anticoagulation [facility], Renee Wise [address] [place] [address] [place] [address] [place] [address] 02/26/2024 7:10 AM EDT Laboratory Lab Mobile Phlebotomy [facility] [address] [place] [address] [facility], Gml Mobile Home Draw [address] [place] [address] 03/22/2024 2:30 PM EST Telemedicine [facility] [place], [place] [address] [place] [address] Carolee Manriquez PA-C [address] [place], [place] [phone] Edna Baum, Community Health Bulb Farmworker [address] [place] [address] Scheduled Procedures Name Priority Associated Diagnoses Date/Ti [...] Additional history exists CKD PHOS USE SMARTSET 16832 06/03/2024 02/0 10/2023, 11/06/2021, 09/12/2020, Additional history exists HbA1c 06/04/2024 12/03/2023, 07/26, 03/27/2023, Additional history exists Albumin/Creatinine Ratio 06/19/20242 024, 08/15/2022, 11/06/2021, Additional history exists GFR 08/22/2024 02/22/2024, 1007/2023, 01/28/2024, Additional history exists Depression Monitoring 09/07/2024 09/08/2023 TSH 01/27/2025 01/28/2024, 08/27, 08/08/2022, Additional history exists CKD HGB USE SMARTSET 02813 02/21/202502/21, 01/29/2024, 01/28/2024, Additional history exists DTap/Tdap [...] the patient have Health Care Power of Roll Grinder? Yes, not currently available * Full Code [...] Relationshi p Communication Omar Lyle Adult Child [facility] re Agent Xi Valdo Adult Child [facility] Care Agent Care Teams Poker Machine Attendant Relationship Specialty Start Date End Date Sherry Maya DO [address] [place], [place] [phone] PCP - General Family Medicine 11/12/11 documented as of this encounter
--- OUTSIDE RECORDS SUMMARY | 2024-05-24 05:32 | External Medical Summary ---
Author Name Unknown Address Unknown Organization K01:LABORATORY [facility] - [address] [place] [address] Laboratory Report Ordering Provider Test Date Status ADEN ESTRADAINZ 02/26/2024 07:30:00 Final Observation Date Value Abnormality Reference (Units ) Status BUN 02/26/2024 07:30:00 18 6-20 (mg/dL) Final Creatinine 02/26/2024 07:30:00 1.0 0.6-1.2 (mg/dL) Final Glomerular filtration rate/1.73 sq M.predicted [Volume Rate/Area] in Serum, Plasma or Blood by Creatinine-based formula (CKD-EPI) 02/26/2024 07:30:00 84 >=60 (mL/min) Final eGFR is calculated based on the CKD-EPI 2020 equation. Sodium 02/26/2024 07:30:00 140 135-146 (m mol/L) Final Potassium 02/26/2024 07:30:00 4.0 3.5-5.1 (m mol/L) Final Cl 02/26/2024 07:30:00 99 98-107 (mm ol/L) Final CO2 02/26/2024 07:30:00 27 22-32 (mmo l/L) Final Anion gap 02/26/2024 07:30:00 14 7-15 (mmol /L) Final Glucose 02/26/2024 07:30:00 73 70-120 (mg /dL) Final Albumin 02/26/2024 07:30:00 3.3 Below low normal 3.8 -5.0 (g/dL) Final AST (Aspartate aminotransferase) 02/26/2024 07:30:00 26 10-50 (U/L) Fin al Alk Phos 02/26/2024 07:30:00 116 35-130 (U/ L) Final Bilirubin, Total 02/26/2024 07:30:00 0.9 <=1 .2 (mg/dL) Final Calcium 02/26/2024 07:30:00 8.5 8.4-10.2 ( mg/dL) Final Protein 02/26/2024 07:30:00 7.8 6.0-8.3 (g /dL) Final ALT (Alanine aminotransferase) 02/26/2024 07:30:00 17 10-50 (U/L) Murali anton Performing Location LAB[facility]ATORY [facility] - [facility] [address] [facility] [address]
--- OUTSIDE RECORDS SUMMARY | 2024-05-24 05:32 | External Medical Summary | Summary of Care ---
Author Name Unknown Organization [facility] Address [address] [facility] [place] [address] Phone [phone] Care Team Providers Care Vending Route Servicer Name Role Phone Sherry Maya DO Primary Care Provider + [phone] Encounter Details Date Type Department Care Team (Late st Contact Info) Description 02/29/2024 Orders Only Family [facility] [address] [place] [address] Anthony Figueroa MD [address] [place] [address] Allergies Active Allergy Reactions Criticality Noted Date [...] TITRATION PLANIndications:Heart failure, systolic, due to CAD ([facility] [...] 4 Active Vitamin D (Ergocalciferol) 1.25 MG (70624 UT) Oral Capsule (Drisdol) TAKE ONE CAPSULE [...] Overview: Added automatically from request for surgery [id number] 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 [...] Silent myocardial infarction 03/23/2013 11/08/2018 Accelerate Clinical Trial*[id number] 01/24/2013 05/16/2015 Overview: ACCELERATE STUDY. Project # [id number], SHOT TUBE MACHINE TENDER: Ben Hoover MD. CRC: DEBORAH Back. SUMMARY: To test the hypothesis that Evacetrapib 130 mg, in comparison to placebo, reduces the risk of major adverse coronary events in high-risk vascular disease patients. CONTACTS: During normal business hours, contact study staff at ; after hours Nut Grader via the [facility] hospital graining operator [phone]. 24-hour Global Study Helpline: [phone]. Lipid levels should not be ordered/obtained while this subject is in the Accelerate study. Lipids are being managed in a blinded fashion. If lipid levels are inadvertently obtained, it is important that test results are NOT provided to the patient, study doctor, background check coordinator, or other study team members. Restricted meds while in the study: 1) niacin > 250 mg, 2) gemfibrozil with a potent [id number]. NINA on CPAP 06/28/2012 01/31/2020 Overview: 06/28/12 [...] Centralized Clinical Pharmacy Services, Renee Wise [address] [place] [address] [place] [address] [facility], [address] [place] [address] 03/22/2024 2:30 PM EST Telemedicine [facility], [place] [address] [place] [address] Carolee Manriquez PA-C [address] [place] [address] Edna Baum, Community Health Rn Bone Marrow Transplant [address] [place] [address] Scheduled Procedures Name Priority Associated Diagnoses Date/Ti [...] Additional history exists CKD PHOS USE SMARTSET 11885 06/03/2024 020 10/2023, 11/06/2021, 09/12/2020, Additional history exists HbA1c 06/04/2024 12/03/2023, 07/26, 03/27/2023, Additional history exists Albumin/Creatinine Ratio 06/19/2024 024, 08/15/2022, 11/06/2021, Additional history exists GFR 08/27/2024 02/28/2024, 04/2023, 02/22/2024, Additional history exists Depression Monitoring 09/07/2024 09/08/2023 CKD HGB USE SMARTSET 96664 02/25/202502/25, 02/26/2024, 02/22/2024, Additional history exists TSH [...] Priority Date/Time Associated Diagnosis Comments CHEMISTRY-OUTSIDE Routine 02/28/2024 documented in this encounter Results * (ABNORMAL) CHEMISTRY-OUTSIDE (02/28/2024) Not all results display below - see scan for full detail OUTSIDE LAB (SEE SCANNED REPORT) Comment:PH [place]-GFR,CM P,CRP,CK CREATININE 1.33(A) 0.70 - 1.30 MG/DL OUTSIDE LAB (SEE SCANNED REPORT) EGFR 61 60 ML/MIN OUTSIDE LA B (SEE SCANNED REPORT) POTASSIUM 3.3(A) 3.5 - 5.1 MMOL OUTSIDE LAB (SEE SCANNED REPORT) GLUCOSE 288(A) 70 - 110 MG/DL OUTSIDE LAB (SEE [...] LAB OUTSIDE LAB (SEE SCANNED REPORT) HEMOGLOBIN, [id number] LAB OUTSIDE LAB (SEE SCANNED REPORT) PHOSPHORUS-OUTSID E LAB OUTSIDE LAB (SEE SCANNED REPORT) PTH-OUTSIDE LAB OUTS ADY LAB (SEE SCANNED REPORT) MICROALBUMIN RATIO-OUTSIDE LAB OUTSIDE LA B (SEE SCANNED REPORT) PROTEIN, UA-OUTSIDE LAB OUTSIDE LAB (SEE SCANNED REPORT) HGB OUTSIDE LA B (SEE SCANNED REPORT) 02/28/2024 Anthony Figueroa MD LABORATORY OUTSIDE LAB (SEE SCANNED REPORT) documented in [...] the patient have Health Care Power of Care Navigator? Yes, not currently available * Full Code [...] File Name Relationship [facility] Communication Omar Lyle Adult [facility] re Agent Xi Mckeont Adult Child Health Care Agent Care Teams Vending Route Servicer Relationship Specialty Start Date End Date Sherry Maay DO [address] [place] [address] PCP - General Family Medicine 11/12/11 documented as of this encounter
--- OUTSIDE RECORDS SUMMARY | 2024-05-24 05:32 | External Medical Summary | Summary of Care ---
Author Name Unknown Organization [facility] Address [address] [facility] [place] [address] Phone [phone] Care Team Providers Care Pest Controller Assistant Name Role Phone Sherry Maya DO Primary Care Provider [phone] Reason for Visit * Reason Comments Dosage Adjustment Via Phone (anticoag Cl inic) Encounter Details Date Type Department Care Team (Late st Contact Info) Description 02/25/2024 6:00 PM EDT Anticoagulation Centralized Clinical Pharmacy Services, Renee Wise [address] [place] [place] [address] [place] [address] [facility], [address] [place] [address] Deep vein thrombosis (DVT) of proximal vein of left lower extremity (HCC)* Allergies Active Allergy Reactions Criticality Noted Date Comments Benzonatate 12/08/2016 choking Keyanna Pedraza Other (Please comment) High 04/10/20 09 Choking documented as of this encounter (statuses as of 02/25/2024) Medications Medication Sig Dispensed Refills Start Date [...] CAD ([facility]),Automatic implantable cardioverter-defibrill ator in situ,Chronic ischemic heart disease,Ischemic cardiomyopathy Take 1 Cap by mouth daily. 30 Cap 5 03/16/2017 Active Additional Information Patient not taking.Reported on 02/22/2024 Glucose Blood (Pay-MeTOUCH VERIO) STRP USE TO TEST BLOOD GLUCOSE 8 TIMES A DAY 800 Strip 3 03/18/2019 Active Insulin Aspart 100 UNIT/ML Injection Solution Inject under the skin. FOR USE IN PUMP Active Party EarthToLucky Pai Verio Flex System w/Device Kit Use as [...] not at goal ([facility]),Diabetic polyneuropathy associated with type 1 [...] 12/31/2023 Active Vitamin D (Ergocalciferol) 1.25 MG (00915 UT) Oral Capsule (Drisdol) TAKE ONE CAPSULE [...] as of this encounter (statuses as of 02/25/2024) Active Problems Problem Noted Date Diagnosed Date [...] Overview: Added automatically from request for surgery [id number] 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 [...] as of this encounter (statuses as of 02/25/2024) Resolved Problems Problem Noted Date Diagnosed Date [...] Silent myocardial infarction 03/23/2013 11/08/2018 Accelerate Clinical Trial*[id number] 01/24/2013 05/16/2015 Overview: ACCELERATE STUDY. Project # [id number], INSPECTOR GLASS OR MIRROR: Ben Hoover MD. CRC: DEBORAH Back. SUMMARY: To test the hypothesis that Evacetrapib 130 mg, in comparison to placebo, reduces the risk of major adverse coronary events in high-risk vascular disease patients. CONTACTS: During normal business hours, contact study staff at ; after hours Ore Bridge Operator via the [facility] [place] hospital cmm operator [phone]. 24-hour Global Study Helpline: [phone]. Lipid levels should not be ordered/obtained while this subject is in the Accelerate study. Lipids are being managed in a blinded fashion. If lipid levels are inadvertently obtained, it is important that test results are NOT provided to the patient, study doctor, marketing technology coordinator, or other study team members. Restricted meds while in the study: 1) niacin > 250 mg, 2) gemfibrozil with a potent [id number]. NINA on CPAP 06/28/2012 01/31/2020 Overview: 06/28/12 [...] as of this encounter (statuses as of 02/25/2024) Immunizations Name Administration Dates Next Due COVID-19 [...] Progress Notes * Jaimee Gandhi RPh - 02/25/2024 12:38 PM EDT Noted, pt was short check due to recent d/c. Pt was weekly dose. Will follow up tomorrow once INR results. Jaimee Gandhi Rph, Pharm.D. Clinical Pharmacist [facility] ([facility]) [phone] 02/25/2024,12:41 PM * Ani Sherman PHARM Tech - 02/25/2024 10:59 AM EDT Pt's GML appt has been moved to tomorrow. Please advise as pt is a 3 day check. Thank you, Ani Sherman Objective C Developer [facility] ([facility]) 02/25/2024, 10:59 AM documented in this encounter Plan of Treatment Upcoming Encounters Date Type Department Care Team (Late st Contact Info) Description 02/26/2024 7:10 AM EDT Laboratory Lab Mobile Phlebotomy [facility] [address] [facility] [place] [address] [facility], Gml Mobile Home Draw [address] [facility] [place] [address] 02/26/2024 6:00 PM EDT Anticoagulation [facility], Renee Wise [address] [place] [address] [place] [address] [facility], [address] [place] [address] 02/29/2024 11:40 AM EST Office Visit Family [place] [address] [place] [phone] Kwame Parks MD [address] [place] [address] 03/22/2024 2:30 PM EST Telemedicine [facility], [place] [address] [place] [address] Carolee Manriquez PA-C [address] [place] [address] Edna Baum, Community Health Manager Gar[place] [address] [place] [address] Scheduled Procedures Name Priority Associated Diagnoses Date/Ti [...] Additional history exists CKD PHOS USE SMARTSET 55401 06/03/2024 020 10/2023, 11/06/2021, 09/12/2020, Additional history exists HbA1c 06/04/2024 12/03/2023, 07/26, 03/27/2023, Additional history exists Albumin/Creatinine Ratio 06/19/2024 024, 08/15/2022, 11/06/2021, Additional history exists GFR 08/22/2024 02/22/2024, 1007/2023, 01/28/2024, Additional history exists Depression Monitoring 09/07/2024 09/08/2023 TSH 01/27/2025 01/28/2024, 08/27, 08/08/2022, Additional history exists CKD HGB USE SMARTSET 53673 02/21/202502/21, 01/29/2024, 01/28/2024, Additional history exists DTap/Tdap [...] as of this encounter Visit Diagnoses Diagnosis Deep vein thrombosis (DVT) of proximal vein [...] have Health Care Power of Director Of Development And Marketing? Yes, not currently available * Full Code [...] Adult Child Health Care Agent Care Teams Pest Controller Assistant Relationship Specialty Start Date End Date Sherry Maya DO [address] [place], [place] [phone] PCP - General Family Medicine 11/12/11 documented as of this encounter
--- OUTSIDE RECORDS SUMMARY | 2024-05-24 05:32 | External Medical Summary ---
Author Name Unknown Address Unknown Organization K01:[facility]ORY [facility] [place] [place] [address] [place] [address] Laboratory Report Ordering Provider Test Date Status ADEN ESTRADA 02/26/2024 07:30:00 Final Observation Date Value Abnormality Reference (Units ) Status Vitamin B12 02/26/2024 07:30:00 [phone] (pg/mL) Final Performing Location [facility] [place] [address] [place] [address]
--- OUTSIDE RECORDS SUMMARY | 2024-05-24 05:32 | External Medical Summary ---
Author Name Unknown Address Unknown Organization K01:[facility] [place] [address] [place] [address] Laboratory Report Ordering Provider Test Date Status ADEN ESTRADA 02/26/2024 07:30:00 Final Observation Date Value Abnormality Reference (Units ) Status Folic Acid 02/26/2024 07:30:00 6.9 >4.5 (ng/ mL) Final Performing Location [facility] [place] [address] [place] [address]
--- OUTSIDE RECORDS SUMMARY | 2024-05-24 05:33 | External Medical Summary | Summary of Care ---
Author Name Unknown Organization [facility] Address [address] [facility] [place] [address] Phone [phone] Care Team Providers Care Biometric Fingerprinting Technician Name Role Phone Sherry Maya DO Primary Care Provider + [phone] Reason for Visit * Reason Onset Date Comments Home Health 02/24/2024 Encounter Details Date Type Department Care Team (Late st Contact Info) Description 02/24/2024 Telephone [facility] [address] [place] [address] Sherry Maya DO [address] [place] [address] Home Health Allergies Active Allergy Reactions Criticality Noted Date Comments Benzonatate 12/08/2016 choking Keyanna Pedraza Other (Please comment) High 04/10/20 09 Choking documented as of this encounter (statuses as of 02/24/2024) Medications Medication Sig Dispensed Refills Start Date End Date Status ONEMALATHI PEREZ MISCIndications:DM type 2, not at goal ([facility]) 3 Box Dosing Unit 1 04/17/2015 Active Nitroglycerin 0.4 MG Sublingual Tablet Sublingual Place under the tongue every 5 minutes as needed. Up to 3 in 15 minutes. 25 Tab 11 04/17/2015 Active Magnesium Oxide 400 MG CapsuleIndications:Hea rt failure, systolic, due to CAD ([facility]),Automatic implantable cardioverter-defibrill ator in situ,Chronic ischemic heart disease,Ischemic cardiomyopathy Take 1 Cap by mouth daily. 30 Cap 5 03/16/2017 Active Additional Information Patient not taking.Reported on 02/22/2024 Glucose Blood (MythosTOUCH VERIO) STRP USE TO TEST BLOOD GLUCOSE 8 TIMES A DAY 800 Strip 3 03/18/2019 Active Insulin Aspart 100 UNIT/ML Injection Solution Inject under the skin. FOR USE IN PUMP Active JamgoTouch Verio Flex System w/Device Kit Use as [...] mellitus due to underlying condition ([facility]),Ulcer of right foot with necrosis of muscle ([facility]),Right knee pain, unspecified chronicity,Heart failure, systolic, due to CAD ([facility]) Bariatric heavy duty walker- 2 wheels- please document patient's weight at 308 1 Each 02/07/2021 Active DIURETIC TITRATION PLANIndications:Heart failure, systolic, due to CAD ([facility]) If no improvement on day [...] Additional Information Patient taking differently: 50 mgOralTID 06;12;18, Reported on 02/22/2024 Albuterol Sulfate 108 (90 Base) MCG/ACT Inhalation Aerosol Powder Breath ActivatedIndications:A sthma in remission Inhale 2 Puffs by mouth 4 times a day as needed for Wheezing. 3 Each 3 04/12/2021 Active Aspirin 81 MG Oral Tablet ChewableIndications:Dy slipidemia, goal LDL below 100,DM type 2, not at goal ([facility]),Diabetic polyneuropathy associated with type 1 [...] 12/31/2023 Active Vitamin D (Ergocalciferol) 1.25 MG (61302 UT) Oral Capsule (Drisdol) TAKE ONE CAPSULE [...] Overview: Added automatically from request for surgery [id number] 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 [...] Silent myocardial infarction 03/23/2013 11/08/2018 Accelerate Clinical Trial*[id number] 01/24/2013 05/16/2015 Overview: ACCELERATE STUDY. Project # [id number], UNIX SYSTEM ADMINISTRATOR: Bne Hoover MD. CRC: DEBORAH Back. SUMMARY: To test the hypothesis that Evacetrapib 130 mg, in comparison to placebo, reduces the risk of major adverse coronary events in high-risk vascular disease patients. CONTACTS: During normal business hours, contact study staff at ; after hours Conditioning Yard Supervisor via the [facility] general operator [phone]. 24-hour Global Study Helpline: [phone]. Lipid levels should not be ordered/obtained while this subject is in the Accelerate study. Lipids are being managed in a blinded fashion. If lipid levels are inadvertently obtained, it is important that test results are NOT provided to the patient, study doctor, network coordinator, or other study team members. Restricted meds while in the study: 1) niacin > 250 mg, 2) gemfibrozil with a potent [id number]. NINA on CPAP 06/28/2012 01/31/2020 Overview: 06/28/12 [...] Telephone Encounter - Jordyn Vivar LPN - 02/24/2024 3:10 PM EDT Carey calling from [facility] She is calling to check to see if patient went to HD appointment. Advised that patient is scheduled with Dr. Parks tomorrow at 11:20am She will call back on Thursday to check if he went to the appt. documented in this encounter Plan of Treatment Upcoming Encounters Date Type Department Care Team (Late st Contact Info) Description 02/25/2024 11:20 AM EDT Office Visit [facility] [address] [place] [phone] Kwame Parks MD [address] [facility] [place] [address] 02/25/2024 6:00 PM EDT Anticoagulation [facility], Renee Wise [address] [place] [address] [place] [address] [facility], [address] [place] [address] 02/26/2024 7:10 AM EDT Laboratory Lab Mobile Phlebotomy [facility] [address] [facility] [place] [address] Mvmg, Gml Mobile Home Draw [address] [facility] [place] [address] 03/22/2024 2:30 PM EST Telemedicine [facility], [place] [address] [place] [address] Carolee Manriquez PA-C [address] [place] [address] Edna Baum, Community Health Exhibit Artist [address] [place] [address] Scheduled Procedures Name Priority Associated Diagnoses Date/Ti [...] Additional history exists CKD PHOS USE SMARTSET 81183 06/03/2024 02/0 10/2023, 11/06/2021, 09/12/2020, Additional history exists HbA1c 06/04/2024 12/03/2023, 04/1 , 03/27/2023, Additional history exists Albumin/Creatinine Ratio 06/19/2024 024, 08/15/2022, 11/06/2021, Additional history exists GFR 08/22/2024 02/22/2024, 1007/2023, 01/28/2024, Additional history exists Depression Monitoring 09/07/2024 09/08/2023 TSH 01/27/2025 01/28/2024, 08/27, 08/08/2022, Additional history exists CKD HGB USE SMARTSET 62225 02/21/202502/21, 01/29/2024, 01/28/2024, Additional history exists DTap/Tdap [...] the patient have Health Care Power of Environmental Aide? Yes, not currently available * Full Code [...] Agents on File Name Relationship [facility] Agent [facility] Omar Lyle Adult Child [facility] re Agent Xi Lyle Adult Child [facility] Care Agent Care Teams Biometric Fingerprinting Technician Relationship Specialty Start Date End Date Sherry Maya DO [address] [facility] [place] [address] PCP - General Family Medicine 11/12/11 documented as of this encounter
--- OUTSIDE RECORDS SUMMARY | 2024-05-24 05:33 | External Medical Summary | Summary of Care ---
Author Name Unknown Organization [facility] Address [address] [place] [address] Phone [phone] Care Team Providers Care Mold Maker Plaster Name Role Phone Sherry Maya DO Primary Care Provider + [phone] Reason for Visit * Reason Onset Date Comments Test Results 02/24/2024 Encounter Details Date Type Department Care Team (Late st Contact Info) Description 02/24/2024 Telephone [facility] [address] [place] [address] Carolee Manriquez PA-C [address] [place] [address] Test Results Allergies Active Allergy Reactions Criticality Noted Date Comments Benzonatate 12/08/2016 choking Keyanna Pedraza Other (Please comment) High 04/10/20 09 Choking documented as of this encounter (statuses as of 02/24/2024) Medications Medication Sig Dispensed Refills Start Date End Date Status KIT PEREZ MISCIndications:DM type 2, not at goal ([facility]) 3 Box Dosing Unit 1 [...] Patient not taking.Reported on 02/22/2024 Glucose Blood (Drill CycleTOUCH VERIO) STRP USE TO TEST BLOOD GLUCOSE 8 TIMES A DAY 800 Strip 3 03/18/2019 Active Insulin Aspart 100 UNIT/ML Injection Solution Inject under the skin. FOR USE IN PUMP Active ProtoExchangeTouch Verio Flex System w/Device Kit Use as [...] with diabetes mellitus due to underlying condition ([facility]),Ulcer of right foot with necrosis of muscle ([facility]),Right knee pain, unspecified chronicity,Heart failure, systolic, due to CAD ([facility]) Bariatric heavy duty walker- 2 wheels- please document patient's weight at 308 1 Each 02/07/2021 Active DIURETIC TITRATION PLANIndications:Heart failure, systolic, due to CAD ([facility]) If no improvement on day [...] Capsule before bedtime. 60 Capsule 12/31/2023 Active oxyCODONE HCl 10 MG Oral Tablet (Roxicodone)Indication s:Diabetic polyneuropathy associated with type 2 diabetes mellitus (HCC),S/P BKA (below knee amputation) unilateral, left (HCC),Leg wound, right, initial encounter Take 1 Tablet by mouth every 6 hours as needed for Pain, Severe. 20 Tablet 12/31/2023 Active Vitamin D (Ergocalciferol) 1.25 MG (78509 UT) Oral Capsule (Drisdol) TAKE ONE CAPSULE [...] Overview: Added automatically from request for surgery [id number] 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 [...] Silent myocardial infarction 03/23/2013 11/08/2018 Accelerate Clinical Trial*[id number] 01/24/2013 05/16/2015 Overview: ACCELERATE STUDY. Project # [id number], HEALTH COMMUNICATIONS SPECIALIST: Ben Hoover MD. CRC: DEBORAH Back. SUMMARY: To test the hypothesis that Evacetrapib 130 mg, in comparison to placebo, reduces the risk of major adverse coronary events in high-risk vascular disease patients. CONTACTS: During normal business hours, contact study staff at ; after hours Bsa/Aml Compliance Officer via the [facility] hospital filling and stapling machine operator [phone]. 24-hour Global Study Helpline: [phone]. Lipid levels should not be ordered/obtained while this subject is in the Accelerate study. Lipids are being managed in a blinded fashion. If lipid levels are inadvertently obtained, it is important that test results are NOT provided to the patient, study doctor, closing coordinator, or other study team members. Restricted meds while in the study: 1) niacin > 250 mg, 2) gemfibrozil with a potent [id number]. NINA on CPAP 06/28/2012 01/31/2020 Overview: 06/28/12 [...] Telephone Encounter - Carolee Manriquez PA-C - 02/24/2024 11:06 AM EDT Received lab results for the patient although these aren't the one I ordered. They are scheduled peggy drawn on Thursday. Potassium was low at 3.2. Called patient and left a message to make sure he is taking Potassium 20 meq BID. I will send a MyG message as well. documented in this encounter Plan of Treatment Upcoming Encounters Date Type Department Care Team (Late st Contact Info) Description 02/25/2024 11:20 AM EDT Office Visit [facility] [address] [place] [facility] [phone] Kwame Parks MD [address] [place] [facility] [address] 02/25/2024 6:00 PM EDT Anticoagulation [facility] Clinical [facility] Services, Renee Wise [address] [place] [address] [place] [address] [facility], [address] [place] [address] 02/26/2024 7:10 AM EDT Laboratory Lab Mobile Phlebotomy [facility] [address] [facility] [place] [address] Mv[facility], Gml Mobile Home Draw [address] [facility] [address] [place] [address] 03/22/2024 2:30 PM EST Telemedicine [facility], [place] [address] [place] [address] Carolee Manriquez PA-C [address] [place] [address] Edna Baum, Community Health Boiler Tenders Supervisor [address] [place] [address] Scheduled Procedures Name Priority Associated Diagnoses Date/Ti [...] Additional history exists CKD PHOS USE SMARTSET 77174 06/03/2024 02/0 10/2023, 11/06/2021, 09/12/2020, Additional history exists HbA1c 06/04/2024 12/03/2023, 04/1 , 03/27/2023, Additional history exists Albumin/Creatinine Ratio 06/19/2024 024, 08/15/2022, 11/06/2021, Additional history exists GFR 08/22/2024 02/22/2024, 1007/2023, 01/28/2024, Additional history exists Depression Monitoring 09/07/2024 09/08/2023 TSH 01/27/2025 01/28/2024, 08/27, 08/08/2022, Additional history exists CKD HGB USE SMARTSET 01049 02/21/202502/21, 01/29/2024, 01/28/2024, Additional history exists DTap/Tdap [...] the patient have Health Care Power of Preschool Disability Teacher? Yes, not currently available * Full [...] File Name Relationship Healthcare Agent [facility] Maur[facility]emo [place] Adult Child [facility] re Agent [facility] Care Agent Care Teams Mold Maker Plaster Relationship Specialty Start Date End Date Sherry Maya DO [address] [place] [facility] [place] [place] [address] PCP - General Family Medicine 11/12/11 documented as of this encounter
--- OUTSIDE RECORDS SUMMARY | 2024-05-24 05:33 | External Medical Summary | Summary of Care ---
Author Name Unknown Organization [facility] Address [address] [facility] [place] [address] Phone [phone] Care Team Providers Care Inspector Golf Ball Name Role Phone David Maya DO Primary Care Provider + [phone] Reason for Visit * Reason Onset Date Comments Medication Refill 02/23/2024 Encounter Details Date Type Department Care Team (Late st Contact Info) Description 02/23/[address] [facility] [address] [place] [address] Shree Camilo MD [address] [place] [address] Diabetic polyneuropathy associated with type [...] Patient not taking.Reported on 02/22/2024 Glucose Blood (TraveDocTOUCH VERIO) STRP USE TO TEST BLOOD GLUCOSE 8 TIMES A DAY 800 Strip 3 9 Active Insulin Aspart 100 UNIT/ML Injection Solution Inject under the skin. FOR USE IN PUMP Active Abattis BioceuticalsToSlideRocket Verio Flex System w/Device Kit Use as [...] Tablet 3 1 Active Additional Information Patient taking differently: 50 [...] for Dizziness. 30 Tablet 1 2 Active Additional Information Patient not taking.Reported [...] and 1 Tablet before bedtime. 60 Tablet 3 Active Levothyroxine Sodium 88 MCG Oral [...] abdominal pain 40 Tablet 2 4 Active oxyCODONE HCl 5 MG Oral Tablet (Oxy IR) Take 1 Tablet by mouth every 8 hours as needed for Pain, Severe. 12 Tablet 4 Active Additional Information Patient not taking.Reported on 02/22/2024 Pregabalin 50 MG Oral Capsule (Lyrica)Indications:Di abetic polyneuropathy associated with type 2 diabetes mellitus (HCC),S/P BKA (below knee amputation) unilateral, left (HCC),Leg wound, right, initial encounter Take 1 Capsule by mouth in the morning and 1 Capsule at noon and 1 Capsule before bedtime. 60 Capsule 4 Active Vitamin D (Ergocalciferol) 1.25 MG (05232 UT) Oral Capsule (Drisdol) TAKE ONE CAPSULE BY MOUTH EVERY WEEK 12 Capsule 4 Active oxyCODONE HCl 10 MG Oral Tablet (Roxicodone)Indication s:Diabetic polyneuropathy associated with type 2 diabetes mellitus (HCC),S/P BKA (below knee amputation) unilateral, left (HCC),Leg wound, right, initial encounter Take 1 Tablet by mouth every 6 hours as needed for Pain, Severe. 20 Tablet 4 Active oxyCODONE HCl 10 MG Oral Tablet (Roxicodone)Indication s:Diabetic polyneuropathy associated with type 2 diabetes mellitus (HCC),S/P BKA (below knee amputation) unilateral, left (HCC),Leg wound, right, initial encounter Take 1 Tablet by mouth every 6 hours as needed for Pain, Severe. 20 Tablet 4 02/23/20 24 Discontinu ed(Refill) documented as of this [...] Overview: Added automatically from request for surgery [id number] 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 [...] Silent myocardial infarction 03/23/2013 11/08/2018 Accelerate Clinical Trial*[id number] 01/24/2013 05/16/2015 Overview: ACCELERATE STUDY. Project # [id number], DIRECTOR OUTCOMES: Ben Hoover MD. CRC: DEBORAH Back. SUMMARY: To test the hypothesis that Evacetrapib 130 mg, in comparison to placebo, reduces the risk of major adverse coronary events in high-risk vascular disease patients. CONTACTS: During normal business hours, contact study staff at ; after hours Life Skills Trainer via the [facility] defensive fire control systems operator [phone]. 24-hour Global Study Helpline: [phone]. Lipid levels should not be ordered/obtained while this subject is in the Accelerate study. Lipids are being managed in a blinded fashion. If lipid levels are inadvertently obtained, it is important that test results are NOT provided to the patient, study doctor, academic success coordinator, or other study team members. Restricted meds while in the study: 1) niacin > 250 mg, 2) gemfibrozil with a potent [id number]. NINA on CPAP 06/28/2012 01/31/2020 Overview: 06/28/12 [...] Telephone Encounter - David Maya DO - 02/24/2024 2:39 PM EDTSigned Prescriptions: Disp Refills oxyCODONE HCl 10 MG Oral Tablet (Roxicodon*20 Tab*0 Sig: Take 1 Tablet by mouth every 6 hours as needed for Pain, Severe. Authorizing Provider: DAVID MAYA * Telephone Encounter - [facility] - 02/23/2024 4:02 PM EDTPending Prescriptions: Disp Refills oxyCODONE HCl 10 MG Oral Tablet (Roxicodon*20 Tab*0 Sig: Take 1 Tablet by mouth every 6 hours as needed for Pain, Severe. Electronically signed by [facility] at 02/23/2024 4:02 PM EDT * Telephone Encounter - [facility] - 02/23/2024 4:02 PM EDT I have reviewed the patients controlled substance dispensing history in the Prescription Drug Monitoring Program in compliance with the [facility] regulations before prescribing a controlled substance. PDMP checked on 02/23/2024. Pending Prescriptions: Disp Refills oxyCODONE HCl 10 MG Oral Tablet (Roxicodo*20 Tab*0 Sig: Take 1 Tablet by mouth every 6 hours as needed for Pain, Severe. Last Visit: 09/24/2023 (in office), 12/15/2023 (telemedicine) Next Visit: 02/25/2024 Date medication was last filled: 01/30 Date medication is due for refill: 02/08 [id number] [facility] Is this request for a controlled substance? Yes and Urine Drug Screen Not completed Toxicology results: No results found. However, due to the size of the patient record, not all encounters were searched.Please check Results Review for a complete set of results. Please approve if appropriate. Thank you, David Ambrose, PharmD Clinical Pharmacist Centralized Clinical Pharmacy Services ([facility]) 02/23/24 4:02 PM [phone] Electronically signed by [facility] at 02/23/2024 4:02 PM EDT documented in this encounter Plan of Treatment Upcoming Encounters Date Type Department Care Team (Late st Contact Info) Description 02/25/2024 11:20 AM EDT Office Visit [facility] [address] [place] [address] Kwame Parks MD [address] [place] [address] 02/25/2024 6:00 PM EDT Anticoagulation Centralized Clinical Pharmacy Services, Renee Wise [address] [place] [address] [place] [address] [facility], [address] [place] [address] 02/26/2024 7:10 AM EDT Laboratory Lab Mobile Phlebotomy [facility] [address] [facility] [place] [address] Mvmg, Gml Mobile Home Draw [address] [facility] [place] [address] 03/22/2024 2:30 PM EST Telemedicine [facility], [place] [address] [place] [address] Carolee Manriquez PA-C [address] [place] [address] Edna Baum, Community Health Repair Service Dispatcher [address] [place] [address] Scheduled Procedures Name Priority Associated [...] Additional history exists CKD PHOS USE SMARTSET 83577 06/03/2024 020 10/2023, 11/06/2021, 09/12/2020, Additional history exists HbA1c 06/04/2024 12/03/2023, 07/26, 03/27/2023, Additional history exists Albumin/Creatinine Ratio 06/19/2024 024, 08/15/2022, 11/06/2021, Additional history exists GFR 08/22/2024 02/22/2024, 07/2023, 01/28/2024, Additional history exists Depression Monitoring 09/07/2024 09/08/2023 TSH 01/27/2025 01/28/2024, 05, 08/08/2022, Additional history exists CKD HGB USE SMARTSET 39962 02/21/202502/21, 01/29/2024, 01/28/2024, Additional history exists DTap/Tdap [...] the patient have Health Care Power of Spirits Model? Yes, not currently available * Full Code [...] Agents on File Name Relationship Healthcare Agent [facility] p Communication Omar Lyle Adult Child [facility] re Agent Xi Lyle Adult Child Health Care Agent Care Teams Inspector Golf Ball Relationship Specialty Start Date End Date David Maya DO [address] [place] [address] PCP - General Family Medicine 11/12/11 documented as of this encounter
[2024-05-24 06:25] LABS: Basophils % (auto) 1.7 %; Eosinophils # (auto) 0.28 K/uL (0.00-0.50); Eosinophils % (auto) 4.8 %; Hematocrit (blood only) 30.8 % (42.0-52.0); Hemoglobin 9.5 g/dl (14.0-18.0); Immature Granulocytes # (auto) 0.03 K/uL (0.01-0.20); Immature Granulocytes % (auto) 0.5 %; Lymphocytes # (auto) 0.75 K/uL (1.20-3.40); Mean Corpuscular Hemoglobin 26.6 pg (25.0-34.0); Mean Corpuscular Hgb Conc 30.8 g/dL (32.0-36.0); Mean Corpuscular Volume 86.3 fL (80.0-100.0); Mean Platelet Volume 9.2 fL (9.4-12.4); Monocytes # (auto) 0.72 K/uL (0.11-0.59); Monocytes % (auto) 12.5 %; Neutrophils % (auto) 67.5 %; Platelet Count 296 K/uL (130-400); RDW Coefficient of Variation 19.4 % (11.5-14.5); Red Blood Count 3.57 M/uL (4.70-6.10); White Blood Count 5.78 K/ul (4.8-10.8)
[2024-05-24 06:38] LABS: BUN Creatinine Ratio 17.1 (10-20); Calcium 8.3 mg/dl (8.6-10.3); Creatinine Clr Calc Pharmacy 80.5 ml/min; Potassium 3.5 mmol/L (3.5-5.1)
[2024-05-24] MEDS: LEVOTHYROXINE SODIUM 88 MCG TABLET PO SCH (06:43)
[2024-05-24 06:51] LABS: INR 4.7 (0.9-1.1); Prothrombin Time 44.6 Seconds (9.0-12.0)
--- OUTSIDE RECORDS SUMMARY | 2024-05-24 07:24 | External Medical Summary | Summary of Care ---
Author Name Unknown Organization [facility] Address [address] [facility] [place] [address] Phone [phone] Care Team Providers Care Closing Supervisor Name Role Phone Sheryr Maya DO Primary Care Provider [phone] Reason for Visit * Reason Comments Dosage Adjustment Via Phone (anticoag Cl inic) Encounter Details Date Type Department Care Team (Late st Contact Info) Description 05/18/2024 6:45 AM EST Anticoagulation [facility], Renee Wise [address] [place] [address] [place] [phone] [facility], [address] [place] [address] Anticoagulation management encounter* Allergies Active Allergy Reactions Criticality Noted Date Comments Benzonatate 12/08/2016 choking Keyanna Pedraza Other (Please comment) High 04/10/20 09 Choking documented as of this encounter (statuses as of 05/18/2024) Medications ONETOUCH LANCETS MISCIndications:DM type 2, not at goal ([facility]) 3 Box Dosing Unit 1 04/17/20 15 [...] Cap 5 03/16/20 17 Active Glucose Blood (RSP ToolingTOUCH VERIO) STRP USE TO TEST BLOOD GLUCOSE 8 TIMES A DAY 800 Strip 3 03/18/20 19 Active Insulin Aspart 100 UNIT/ML Injection Solution Inject under the skin. FOR USE IN PUMP Active Neuraltus PharmaceuticalsTouch Verio Flex System w/Device Kit Use as [...] failure, systolic, due to CAD ([facility]) Bariatric heavy duty walker- 2 wheels- please document patient's weight at 308 1 Each 02/08/20 Active DIURETIC TITRATION PLANIndications:Hear t failure, systolic, due to CAD ([facility]) If no improvement on day 3, contact [...] 24 Active Vitamin D (Ergocalciferol) 1.25 MG (17159 UT) Oral Capsule (Drisdol) TAKE ONE CAPSULE [...] (07/04/2019): Added automatically from request for surgery [id number] 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 [...] Silent myocardial infarction 03/23/2013 11/08/2018 Accelerate Clinical Trial*[id number] 01/24/2013 05/16/2015 Overview (01/24/2013): ACCELERATE STUDY. Project # [id number], PETROPHYSICAL ENGINEER: Ben Hoover MD. CRC: DEBORAH Back. SUMMARY: To test the hypothesis that Evacetrapib 130 mg, in comparison to placebo, reduces the risk of major adverse coronary events in high-risk vascular disease patients. CONTACTS: During normal business hours, contact study staff at ; after hours Marine [employer] Fighter via the [facility] hospital blue line operator [phone]. 24-hour Global Study Helpline: [phone]. Lipid levels should not be ordered/obtained while this subject is in the Accelerate study. Lipids are being managed in a blinded fashion. If lipid levels are inadvertently obtained, it is important that test results are NOT provided to the patient, study doctor, material coordinator, or other study team members. Restricted meds while in the study: 1) niacin > 250 mg, 2) gemfibrozil with a potent [id number]. NINA on CPAP 06/28/2012 01/31/2020 Overview (06/28/2012): [...] Progress Notes * Jaimee Gandhi RPh - 05/18/2024 1:12 PM EST Images from the original note were not included. [facility] [phone] Pt remains admitted. Spoke with nurseAlexander d/c plans today. [facility] will follow up for discharge plans. Jaimee Gandhi Rph, Pharm.D. Clinical Pharmacist [facility] ([facility]) [phone] 05/18/2024,1:12 PM documented in this encounter Plan of Treatment Upcoming Encounters Date Type Department Care Team (Late st Contact Info) Description 05/20/2024 6:45 AM EST Anticoagulation [facility], Renee Wise [address] [place] [address] [place] [phone] [facility], [address] [place] [address] 05/26/2024 10:30 AM EST Telemedicine [facility], [address] [address] Carolee Manriquez PA-C [address] [place] [address] Edna Baum, [facility] Table Tender [employer]udge [address] [place] [address] 07/11/2024 9:50 AM EDT Office Visit [facility] [address] [place] [address] Sherry Maya DO [address] [facility] [place] [address] Scheduled [...] 02/26/2024, 06/2023, 09/24/2023, Additional history exists GFR 05/17/2025 [...] the patient have Health Care Power of Foxing Painter? Yes, not currently available * Full Code [...] Agents on File Name Relationship Healthcare Agent [facility] p Communication Omar Mckeont Adult Child [facility] re Agent Xi [facility] Care Agent Care Teams Closing Supervisor Relationship Specialty Start Date End Date Sherry Maya DO PCP - General Family Medicine 11/12/11 documented as of this encounter
[2024-05-24] MEDS ORDERED: CEFEPIME 2000MG 2,000 MG/20 ML SYR IV SCH (08:00)
[2024-05-24] MEDS: ASPIRIN 81 MG ECTAB PO SCH (08:10)
[2024-05-24] MEDS: PANTOprazole 40 MG TAB PO SCH (08:10)
[2024-05-24] MEDS: DOXYCYCLINE HYCLATE 100 MG CAP PO SCH (08:11)
[2024-05-24] MEDS: BETAMETHASONE VAL 0.1% CR 15 GM TOP SCH (08:11)
[2024-05-24] MEDS: ACETAMINOPHEN 1,000 MG/100 ML VIAL IV STA (08:19)
[2024-05-24] MEDS: PREGABALIN 50 MG CAP PO SCH (08:46)
[2024-05-24] MEDS: oxyCODONE HCL IR 5 MG TAB (IMMEDIATE RELEASE) PO PRN (08:46)
[2024-05-24] MEDS: LANTUS PER UNIT CHARGE SC SCH ×2 (08:47→21:21)
[2024-05-24] MEDS: INSULIN ASPART PER UNIT CHARGE SC SCH (08:48)
[2024-05-24] MEDS: METOPROLOL TARTRATE 25 MG TAB PO SCH (08:52)
[2024-05-24] MEDS: LORazepam 0.5 MG TAB PO PRN (09:13)
[2024-05-24] MEDS: CEFEPIME 2000MG 2,000 MG/20 ML SYR IV SCH (09:15)
[2024-05-24] MEDS: ALBUMIN 25% 25 GM/100 ML VIAL IV SCH (09:15)
--- NOTE | 2024-05-24 10:38 | Pharmacy Report ---
Pharmacy Glycemic Short Note 2 - Date of Service May 24, 2024 - Glycemic Short BSG Results (Last 24 hours): 05/23/24 05/23/24 05/24/24 18:44 18:52 02:55 Glucose 104 H POC Glucose 121 H POC Glucose (other) 108 H 05/24/24 05/24/24 05:54 07:17 Glucose 119 H POC Glucose 131 H POC Glucose (other) OUTPATIENT ANTIDIABETIC REGIMEN: * Novolog pump * pre-meal target range: 90-150 mg/dL * post-meal target range: <220 mg/dL * Carb ratio: 1:3 g/unit * Correction factor: 1:30 unit/mg/dL * Basal rate: 7 units/hr (9114-2949), 6 units/hr (6482-7378), 7 units/hr (1431-1556) - 155 units/day HbA1c: 7.5% (02/09/24), 8.1% (04/2024 per H&P) ASSESSMENT: * CG is a 58 year old male who presents to ED s/p mechanical fall out of wheelchair * Patient is well-known to pharmacy glycemic service s/p multiple admissions/consultations * Reasonably well-controlled T2DM as an outpatient with Novolog insulin pump (fairly large daily insulin doses) * Insulin pump removed prior to admission * Will utilize pump settings and prior inpatient glycemic data to guide initial SC insulin dosing PLAN FOR INPATIENT GLYCEMIC CONTROL: * Hold insulin pump * Basal insulin * Lantus 30 units SQ daily * Lantus 25-30 units SC HS x 1 * Reassess in AM * Bolus insulin * NovoLog per scale ACHS or Q6hrs while NPO * Goal Range: Low 110 mg/dL - High 140 mg/dL * Correction Factor: 25 mg/dL/unit * Nutritional / Prandial insulin per carb ratio of 1 unit per 3 grams CHO consumed
[2024-05-24] MEDS: diphenhydrAMINE Capsule 25 MG CAP PO PRN (11:37)
--- NOTE | 2024-05-24 12:18 | Hospitalist Progress Note ---
Date of Service May 24, 2024 Assessment & Plan (1) Atrial fibrillation with RVR: Plan: Rapid A-fib secondary to fall, possible sepsis from LLE cellulitis, past history of osteomyelitis status post left BKA, rule out abscess/osteomyelitis, procalcitonin on blood work; INR slightly supratherapeutic ARF on CKD secondary to illness chronic systolic heart failure, EF 35%, TTE 2023) sp ICD, equivocal volume status, given mild congestion on imaging and ARF on CKD hx CAD hx VT status post ablation hypertension, BP stable hyperlipidemia, on statin Rx pulmonary hypertension/OHS on BiPAP as per records bronchial asthma, not in acute exacerbation DM2 on insulin pump, suboptimal control as of recent hemoglobin A1c of 8.1 this month hypothyroidism, TSH slightly elevated with normal free T4 chronic anemia, hemoglobin at baseline hx RLE osteomyelitis status post recent surgery, no issues as per patient Possible functional disability PCU Facilitate home beta-noy and wean off Cardizem infusion Monitor creatinine response to IV albumin Hold home diuretics for now until creatinine back to baseline CS, doxycycline and cefepime CT LLE stump Further management contingent on CT results Pharmacy glycemic control consult PT OT eval once medically stable DVT prophylaxis Coumadin INR goal between 2 and 3 if no concerns on CT imaging Full code Patient would like daughter to be given updates regarding care. Ms. Omar Lyle, contact #[phone]. Text document was generated using [employer] voice recognition software. It may contain grammatical or spelling errors. Kindly contact undersigned for clarification of any documentation item in question. Admission and Anticipated Discharge Date Admission Date: May 24, 2024 Results & Data Results & Data Vital Signs (Past 12 Hours) Vital Signs Temp Pulse Pulse Resp BP BP Pulse Ox 05/24/24 11:06 36.7 C 83 17 123/70 93 05/24/24 08:17 36.4 C L 81 18 115/71 92 05/24/24 07:00 87 05/24/24 02:24 81 05/24/24 02:10 05/24/24 02:10 36.6 C 90 20 99/63 L 94 05/24/24 01:30 92 H 20 122/63 91 05/24/24 01:18 89 9 L 91 05/24/24 01:15 97 H 15 114/72 94 05/24/24 01:00 96 H 21 107/72 92 05/24/24 00:48 99 H 15 92 05/24/24 00:45 105/35 L 05/24/24 00:45 105/35 L 05/24/24 00:45 105/35 L 05/24/24 00:39 87 12 94 05/24/24 00:30 95 H 14 05/24/24 00:30 100 H 17 103/73 96 O2 Del Method 05/24/24 11:06 Room Air 05/24/24 08:17 Room Air 05/24/24 07:00 05/24/24 02:24 05/24/24 02:10 Room Air 05/24/24 02:10 Room Air 05/24/24 01:30 05/24/24 01:18 05/24/24 01:15 05/24/24 01:00 05/24/24 00:48 05/24/24 00:45 05/24/24 00:45 05/24/24 00:45 05/24/24 00:39 05/24/24 00:30 05/24/24 00:30
--- NOTE | 2024-05-24 12:39 | Electrocardiogram Report ---
Test Reason : Blood Pressure : */* mmHG Vent. Rate : 117 BPM Atrial Rate : * BPM P-R Int : * ms QRS Dur : 126 ms QT Int : 366 ms P-R-T Axes : * -55 117 degrees QTcB Int : 510 ms Atrial fibrillation with rapid ventricular response with premature ventricular or aberrantly conducte d complexes Left axis deviation Non-specific intra-ventricular conduction block Anterolateral infarct (cited on or before 13-Jun-2020) Abnormal ECG When compared with ECG of 18-May-2023 15:21, Non-specific intra-ventricular conduction block now present Questionable change in initial forces of Lateral leads Confirmed by Tereso Reyna ([id number]) on 05/24/2024 12:39:24 PM Referred By: REFERRED SELF Confirmed By: Tereso Reyna
--- NOTE | 2024-05-24 12:47 | Electrocardiogram Report ---
Test Reason : Blood Pressure : */* mmHG Vent. Rate : 90 BPM Atrial Rate : * BPM P-R Int : * ms QRS Dur : 138 ms QT Int : 424 ms P-R-T Axes : * -40 143 degrees QTcB Int : 518 ms Atrial fibrillation Left axis deviation Non-specific intra-ventricular conduction block Anterior infarct (cited on or before 13-Jun-2020) Abnormal ECG When compared with ECG of 23-May-2024 18:33, (unconfirmed) Questionable change in initial forces of Anterolateral leads Confirmed by Tereso Reyna ([id number]) on 05/24/2024 12:47:23 PM Referred By: REFERRED SELF Confirmed By: Tereso Reyna
--- NOTE | 2024-05-24 17:24 | Communication Note ---
Date of Service: May 24, 2024 pt was seen laying in bed. States that he has been having itching, asking for benadryl. Asking about changes to his diet, currently on DM/HH diet. A fib with RVR- improved, no longer on Cardizem drip. Consider Cardiology consult Supratherapeutic INR- continue to hold warfarin, follow INR Cellulitis lower extremities- continue with Cefepime and doxycycline CHATO-improving Pruritus- has prn po and topical benadryl ordered. Consider hydroxyzine if qtc not prolonged For full plan of care, please see the History and Physical from the same date of service.
[2024-05-25] MEDS: MAGNESIUM SULFATE / D5W 1 GM/100 ML BAG IV ONE (05:12)
[2024-05-25] MEDS: ALBUMIN 25% 25 GM/100 ML VIAL IV SCH (05:12)
[2024-05-25] MEDS: POTASSIUM CHLORIDE CRTAB 20 MEQ TABCR PO STA (05:12)
[2024-05-25] MEDS: POTASSIUM CHLORIDE CRTAB 20 MEQ TABCR PO ONE (06:16)
[2024-05-25 06:24] LABS: Albumin Globulin Ratio 0.7 (0.9-2); Albumin Level 3.1 gm/dl (3.4-5.0); BUN Creatinine Ratio 21.3 (10-20); Bilirubin,Total 1.1 mg/dl (0.2-1.0); Calcium 8.3 mg/dl (8.6-10.3); Creatinine Clr Calc Pharmacy 96.4 ml/min; Globulin 4.3 gm/dl (2.5-4.0); Magnesium 2.2 mg/dl (1.7-2.4); Phosphorus 3.5 mg/dl (2.5-4.9); Potassium 3.7 mmol/L (3.5-5.1); Total Protein 7.4 gm/dl (6.0-8.3)
[2024-05-25 06:36] LABS: Basophils # (auto) 0.07 K/uL (0.00-0.20); Basophils % (auto) 1.6 %; Eosinophils # (auto) 0.38 K/uL (0.00-0.50); Eosinophils % (auto) 8.6 %; Hematocrit (blood only) 34.4 % (42.0-52.0); Hemoglobin 10.7 g/dl (14.0-18.0); Immature Granulocytes # (auto) 0.02 K/uL (0.01-0.20); Immature Granulocytes % (auto) 0.5 %; Lymphocytes # (auto) 0.58 K/uL (1.20-3.40); Lymphocytes % (auto) 13.2 %; Mean Corpuscular Hemoglobin 26.8 pg (25.0-34.0); Mean Corpuscular Hgb Conc 31.1 g/dL (32.0-36.0); Mean Platelet Volume 9.6 fL (9.4-12.4); Monocytes % (auto) 11.4 %; Neutrophils # (auto) 2.85 K/uL (1.40-6.50); Neutrophils % (auto) 64.7 %; Platelet Count 301 K/uL (130-400); RDW Coefficient of Variation 19.1 % (11.5-14.5); RDW Standard Deviation 59.5 fL (36.4-46.3)
[2024-05-25] MEDS: PANTOprazole 40 MG TAB PO STA (06:43)
[2024-05-25 06:49] LABS: Prothrombin Time 53.2 Seconds (9.0-12.0)
[2024-05-25 07:39] LABS: INR 5.7 (0.9-1.1)
[2024-05-25 09:17] LABS: Chol HDL Ratio 4.9 (0-5)
[2024-05-25 09:21] LABS: Estimated Average Glucose 140 mg/dl; Hemoglobin A1C 6.5 % (4.5-5.6)
[2024-05-25] MEDS: LORATADINE 10 MG TAB PO SCH (09:21)
[2024-05-25] MEDS: lisinopril 2.5 MG TAB PO SCH (09:26)
[2024-05-25] MEDS: METOPROLOL TARTRATE 50 MG TAB PO SCH (09:26)
[2024-05-25] MEDS: POLYETHYLENE (MIRALAX) 17 GM PACK PO SCH (12:52)
[2024-05-25] MEDS: FAMOTIDINE 10 MG TABLET PO PRN (12:54)
--- NOTE | 2024-05-25 16:09 | Hospitalist Progress Note ---
Date of Service May 25, 2024 Assessment & Plan (1) Atrial fibrillation with RVR: Plan: -noted RVR on arrival, placed on dilt drip -appears much improved this morning, likely in setting of poor self care at home and medicaion compliance Plan: -stop dilt drip in setting of HFrEF, increase metoprolol tartrate to 50 tid, change to succinate before discharge given HFrEF -check echo, TSH, A1c, lipids for risk stratifcation -hold warfarin given supertherapeutic INR (2) Adult failure to thrive: Plan: -patient has had numerous hospitalizations in regards to failure to thrive at home -appears disheveled, found by EMS with pet at door, poor living conditions -high concern given psychiatric concerns and overall condition that patient will be unable to safely return home Plan: -PT/OT ordered -discussed with caser in, will be in contact with APS for further evaluation and assistance as patient appears to be harm to self living alone at this time (3) Cellulitis of left lower leg: Plan: -suspect chronic stasis dermatitis with potential superimposed cellulitis -supported by CT femur, personally interpreted Plan: -continue doxy/cefepime for 5-7 day course -dermatology consult outpatient given recurrence (4) 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: Plan: -relatively controlled Plan: -insulin protocol -regular diet given patient very depressed about current diet (5) PVD (peripheral vascular disease): Plan: -noted from prior, s/p left BKA amputation (6) Morbid obesity: Plan: -likely contributer to PVD and recurrent cellulitis (7) CKD (chronic kidney disease) stage 3, GFR 30-59 ml/min: Plan: -creatinine at baseline (8) NINA on CPAP: Plan: -continue CPAP (9) Cardiac defibrillator in situ: Plan: -noted (10) MDD (major depressive disorder), recurrent episode, mild: Plan: -patient has suicideal ideation without a plan, appears passive -patient is quite depressed, feels hopeless Plan: -psych consult, appreciate recs -suicide precautions -checked PRODUCTION TRAINER, stop ativan as not home medication -zyprexa prn for agitation -consult spiritual care, psychology as well (11) Suicidal ideation: Plan: -without plan Plan: -see above (12) Acute on chronic combined systolic and diastolic CHF (congestive heart failure): Plan: -check echo, appears relatively euvolemic at this time (13) Lymphedema: Plan: -likely contributer to cellulitis Plan: -f[facility]u [facility] (14) Chronic pain syndrome: Plan: -checked PRODUCTION TRAINER, 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 Plan: -continue home oxycodone -will start duloxetine 30 mg tonight given pain and depression Plan Feeding/fluids: changed to regular Analgesia: tylenol, oxy Sedation: na Thromboprophylaxis: hold warfarin currently Head up position: na Ulcer prophylaxis: na Glycemic control: insulin protocol Spontaneous breathing trial: na Bowel care: start miralax prn Indwelling catheter removal: na Deescalation of antibiotics: on cefepime/doxy I spent a total of 50 minutes in direct patient care, including cgre-op-ndof time with the patient and/or family, reviewing medical records, ordering and reviewing diagnostic tests, and coordinating care with other healthcare providers. This time includes: history taking, physical examination, medical decision making, counseling, ECG interpretation, imaging interpretation, lab interpretation, orders, and education, excluding time spent in the performance of separately billed services. Admission and Anticipated Discharge Date Admission Date: May 24, 2024 Subjective Patient seen and examined at bedside. Patient is not doing well today. He states he is very depressed and also not able to take care of himself. He states no one knows he is at the hospital and he feels very alone. He is open to talking to someone about these concerns. He feels lost. He also states he has some stomach pain today. Review of Systems Review of Systems: CONSTITUTIONAL: Patient denies fevers, chills, sweats and weight changes. EYES: Patient denies any visual symptoms. EARS, NOSE, AND THROAT: No difficulties with hearing. No symptoms of rhinitis or sore throat. CARDIOVASCULAR: Patient denies chest pains, palpitations, orthopnea and paroxysmal nocturnal dyspnea. RESPIRATORY: No dyspnea on exertion, no wheezing or cough. GI: stomach ache : No urinary hesitancy or dribbling. No nocturia or urinary frequency. No abnormal urethral discharge. MUSCULOSKELETAL: No myalgias or arthralgias. NEUROLOGIC: No chronic headaches, no seizures. Patient denies numbness, tingling or weakness. PSYCHIATRIC: depression, anxiety ENDOCRINE: No excessive urination or excessive thirst. DERMATOLOGIC: left stump erythema Physical Exam Physical Exam: Gen: A&O 3 NAD, large body habitus HEENT: NCAT, EOMI, not icteric. External ears normal. No rhinorrhea. Moist mucous membranes. Neck: Supple, full range of motion, no observable masses, No meningeal sign. Lungs: No Respiratory distress. CV: RRR, no edema. Abdomen: Soft, nondistended, No rebound tenderness. MSK: noted erythema on left stump Skin: see above Neuro: Normal Gait, Grossly intact. Psych: depressed affect, passive suicideal ideation with no plan Results & Data Results & Data Vital Signs (Past 12 Hours) Vital Signs Temp Pulse Pulse Resp BP BP Pulse Ox 05/25/24 15:31 36.8 C 73 18 112/75 95 05/25/24 13:44 75 05/25/24 11:44 36.9 C 78 18 109/68 95 05/25/24 10:17 05/25/24 07:53 85 05/25/24 07:05 37.3 C 85 20 110/69 94 O2 Del Method 05/25/24 15:31 Room Air 05/25/24 13:44 05/25/24 11:44 Room Air 05/25/24 10:17 Room Air 05/25/24 07:53 05/25/24 07:05 Room Air Laboratory Results -personally reviewed, patient has now rate controlled afib, EF of 35% according to prior echo, stable Hgb and creatinine at around baselines Medications Administered Acetaminophen (Acetaminophen 500 Mg Tab) 500 mg PO Q6H PRN PRN Reason: fever/pain Stop: 06/23/24 00:56 Last Admin: 05/24/24 13:07 Dose: 500 mg Documented By: Admin: 05/24/24 05:26 Dose: 500 mg Documented By: [facility] Aspirin (Aspirin 81 Mg Ectab) 81 mg PO DAILY [facility] Stop: 06/23/24 08:59 Last Admin: 05/25/24 09:19 Dose: 81 mg Documented By: Admin: 05/24/24 08:10 Dose: 81 mg Documented By: AUGUSTA Betamethasone Valerate (Betamethasone Maryann 0.1% Cr 15 Gm) 1 appln TOP TID MATT Stop: 06/23/24 08:59 Last Admin: 05/25/24 13:09 Dose: 1 appln Documented By: Admin: 05/25/24 09:20 Dose: 1 appln Documented By: Admin: 05/24/24 21:22 Dose: 1 appln Documented By: Admin: 05/24/24 17:28 Dose: 1 appln Documented By: Admin: 05/24/24 08:11 Dose: 1 appln Documented By: AUGUSTA Doxycycline Hyclate (Doxycycline Hyclate 100 Mg Cap) 100 mg PO BID MATT Stop: 05/31/24 08:59 Last Admin: 05/25/24 09:20 Dose: 100 mg Documented By: Admin: 05/24/24 21:22 Dose: 100 mg Documented By: Admin: 05/24/24 08:11 Dose: 100 mg Documented By: AUGUSTA Famotidine (Famotidine 10 Mg Tablet) 10 mg PO BID PRN PRN Reason: gerd Stop: 06/24/24 20:59 Last Admin: 05/25/24 12:54 Dose: 10 mg Documented By: PRIYA Diltiazem HCl 125 mg/ Dextrose 125 mls @ 0 mls/hr IV .Q0M [facility]; Protocol Stop: 06/22/24 19:14 Last Titration: 05/24/24 03:08 Dose: 0 mg/hr, 0 mls/hr Documented By: [facility] Co-signed By: SERINA Titration: 05/23/24 22:29 Dose: 2.5 mg/hr, 2.5 mls/hr Documented By: CEF Co-signed By: LARISSA Admin: 05/23/24 21:03 Dose: 5 mg/hr, 5 mls/hr Documented By: CEF Co-signed By: LARISSA Cefepime HCl (Maxipime 2000mg) 2,000 mg in 20 mls @ 5 mls/min IV Q8H [facility]; Protocol Stop: 05/31/24 07:59 Last Admin: 05/25/24 09:15 Dose: 5 mls/min Documented By: Admin: 05/25/24 00:34 Dose: 5 mls/min Documented By: Admin: 05/24/24 17:49 Dose: 5 mls/min Documented By: Admin: 05/24/24 09:15 Dose: 5 mls/min Documented By: AUGUSTA Insulin Aspart (Insulin Aspart Per Unit Charge) 0 units SC ACHS MATT Stop: 06/23/24 07:29 Last Admin: 05/25/24 13:12 Dose: 11 units Documented By: PRIYA Co-signed By: DANIS Admin: 05/25/24 09:12 Dose: 19 units Documented By: PRIYA Co-signed By: ELIZABETH Admin: 05/24/24 20:12 Dose: Not Given Documented By: Admin: 05/24/24 17:39 Dose: 16 units Documented By: AUGUSTA Co-signed By: MAK Admin: 05/24/24 12:22 Dose: 21 units Documented By: AUGUSTA Co-signed By: DANIS Admin: 05/24/24 08:48 Dose: 19 units Documented By: AUGUSTA Co-signed By: MAK Levothyroxine Sodium (Levothyroxine Sodium 88 Mcg Tablet) 88 mcg PO DAILYBB [facility] Stop: 06/23/24 06:29 Last Admin: 05/25/24 05:13 Dose: 88 mcg Documented By: Admin: 05/24/24 06:43 Dose: 88 mcg Documented By: ROMINA Lisinopril (Lisinopril 2.5 Mg Tab) 2.5 mg PO QAM MATT Stop: 06/24/24 08:59 Last Admin: 05/25/24 09:26 Dose: 2.5 mg Documented By: PRIYA Loratadine (Loratadine 10 Mg Tab) 10 mg PO DAILY [facility] Stop: 06/24/24 08:59 Last Admin: 05/25/24 09:21 Dose: 10 mg Documented By: PRIYA Lorazepam (Lorazepam 0.5 Mg Tab) 0.5 mg PO TID PRN PRN Reason: Anxiety Stop: 06/23/24 00:56 Last Admin: 05/25/24 06:16 Dose: 0.5 mg Documented By: Admin: 05/24/24 14:42 Dose: 0.5 mg Documented By: Admin: 05/24/24 09:13 Dose: 0.5 mg Documented By: AUGUSTA Metoprolol Tartrate (Metoprolol Tartrate 50 Mg Tab) 50 mg PO TID MATT Stop: 06/24/24 08:59 Last Admin: 05/25/24 13:09 Dose: 50 mg Documented By: Admin: 05/25/24 09:26 Dose: 50 mg Documented By: CNB Nystatin (Nystatin Powder 15gm Btl) 1 appln EXT BID MATT Stop: 06/23/24 00:59 Last Admin: 05/25/24 09:20 Dose: 1 appln Documented By: Admin: 05/24/24 21:22 Dose: 1 appln Documented By: Admin: 05/24/24 03:16 Dose: 1 appln Documented By: [facility] Oxycodone HCl (Oxycodone Hcl Ir 5 Mg Tab (Immediate Release)) 5 - 10 mg PO QID PRN PRN Reason: Pain Stop: 06/07/24 00:55 Last Admin: 05/24/24 21:26 Dose: 10 mg Documented By: Admin: 05/24/24 18:39 Dose: 10 mg Documented By: Admin: 05/24/24 13:07 Dose: 10 mg Documented By: Admin: 05/24/24 08:46 Dose: 10 mg Documented By: AUGUSTA Polyethylene Glycol (Polyethylene (Miralax) 17 Gm Pack) 17 gm PO DAILY MATT Stop: 06/24/24 11:59 Last Admin: 05/25/24 12:52 Dose: 17 gm Documented By: PRIYA Pregabalin (Pregabalin 50 Mg Cap) 50 mg PO BID MATT Stop: 06/23/24 08:59 Last Admin: 05/25/24 09:24 Dose: 50 mg Documented By: Admin: 05/24/24 21:21 Dose: 50 mg Documented By: Admin: 05/24/24 08:46 Dose: 50 mg Documented By: AUGUSTA (7) CKD (chronic kidney disease) stage 3, GFR 30-59 ml/min Chronic kidney disease stage 3 subtype: stage 3a (GFR 45-59) Qualified Code(s): N18.31 - Chronic kidney disease, stage 3a
[2024-05-25] MEDS ORDERED: OLANZapine 10 MG/2.1 ML SDV IM PRN (16:25)
[2024-05-25] MEDS ORDERED: POLYETHYLENE (MIRALAX) 17 GM PACK PO PRN (16:29)
[2024-05-25] MEDS: DULoxetine HCL 30 MG CAP PO SCH (17:29)
[2024-05-25] MEDS: PROMETHAZINE 12.5 MG/50.5 ML BAG IV PRN (17:29)
[2024-05-25] MEDS: LANTUS PER UNIT CHARGE SC SCH (20:42)
[2024-05-26 06:54] LABS: Hematocrit (blood only) 35.5 % (42.0-52.0); Hemoglobin 11.1 g/dl (14.0-18.0); Mean Corpuscular Hemoglobin 26.7 pg (25.0-34.0); Mean Corpuscular Hgb Conc 31.3 g/dL (32.0-36.0); Mean Corpuscular Volume 85.3 fL (80.0-100.0); Mean Platelet Volume 9.2 fL (9.4-12.4); Platelet Count 335 K/uL (130-400); RDW Coefficient of Variation 19.9 % (11.5-14.5); Red Blood Count 4.16 M/uL (4.70-6.10); White Blood Count 4.98 K/ul (4.8-10.8)
[2024-05-26 07:13] LABS: Albumin Globulin Ratio 0.7 (0.9-2); Albumin Level 3.1 gm/dl (3.4-5.0); BUN Creatinine Ratio 23.8 (10-20); Bilirubin,Total 1.1 mg/dl (0.2-1.0); Calcium 8.8 mg/dl (8.6-10.3); Creatinine Clr Calc Pharmacy 121.5 ml/min; Globulin 4.4 gm/dl (2.5-4.0); Potassium 3.9 mmol/L (3.5-5.1); Total Protein 7.5 gm/dl (6.0-8.3)
[2024-05-26 07:19] LABS: INR 4.5 (0.9-1.1); Prothrombin Time 42.5 Seconds (9.0-12.0)
[2024-05-26] MEDS: DOXYCYCLINE HYCLATE 100 MG CAP PO SCH (11:34)
[2024-05-26] MEDS: CIPROFLOXACIN 500 MG TAB PO SCH (11:34)
[2024-05-26] MEDS: METOPROLOL SUCC 50MG EXT REL TAB PO SCH (11:36)
[2024-05-26] MEDS: SPIRONOLACTONE 12.5 MG TAB PO SCH (11:36)
[2024-05-26] MEDS: PANTOprazole 40 MG TAB PO SCH (11:36)
--- NOTE | 2024-05-26 12:50 | Hospitalist Progress Note ---
Date of Service May 26, 2024 Assessment & Plan (1) Atrial fibrillation with RVR: Plan: -noted RVR on arrival, placed on dilt drip -appears much improved this morning, likely in setting of poor self care at home and medicaion compliance Plan: -change to metoprolol succinate 150 mg daily -check echo, TSH, A1c, lipids for risk stratifcation -hold warfarin given supertherapeutic INR (2) Chronic systolic heart failure: Plan: -noted on echo, EF slightly decreased to 30-35% -does not appear fluid overloaded at this time Plan: -optimize GDMT -continue metoprolol, lisinopril, start aldactone 12.5mg -add SGLT 2 inhibitor tomorrow (3) Adult failure to thrive: Plan: -patient has had numerous hospitalizations in regards to failure to thrive at home -appears disheveled, found by EMS with pet at door, poor living conditions -high concern given psychiatric concerns and overall condition that patient will be unable to safely return home Plan: -PT/OT ordered -discussed with case hardener, will be in contact with APS for further evaluation and assistance as patient appears to be harm to self living alone at this time -per my evaluation over past few days, patient does not have medical capacity to make decisions in regards to his disposition as he is unable to verbalize how he will take care of himself at home and has had numerous failures at home, patient is harm to self in regards to this (4) Cellulitis of left lower leg: Plan: -suspect chronic stasis dermatitis with potential superimposed cellulitis -supported by CT femur, personally interpreted Plan: -given hemodynamic stability deescalate to doxy/cipro for 7 day course -dermatology consult outpatient given recurrence (5) 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: Plan: -relatively controlled Plan: -insulin protocol -regular diet given patient very depressed about current diet (6) PVD (peripheral vascular disease): Plan: -noted from prior, s/p left BKA amputation (7) Morbid obesity: Plan: -likely contributer to PVD and recurrent cellulitis (8) CKD (chronic kidney disease) stage 3, GFR 30-59 ml/min: Plan: -creatinine at baseline (9) NINA on CPAP: Plan: -continue CPAP (10) Cardiac defibrillator in situ: Plan: -noted (11) MDD (major depressive disorder), recurrent episode, mild: Plan: -patient has suicideal ideation without a plan, appears passive -patient is quite depressed, feels hopeless Plan: -psych consult, appreciate recs -suicide precautions -checked [employer], stop ativan as not home medication -zyprexa prn for agitation -consult spiritual care, psychology as well (12) Suicidal ideation: Plan: -without plan -resolved today (13) Lymphedema: Plan: -likely contributer to cellulitis Plan: -f/u [facility] (14) Chronic pain syndrome: Plan: -checked [employer], 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 Plan: -continue home oxycodone -increase duloxetine to 60 mg tomorrow -increase pregablin to 50 tid for severe neuropathic pain Plan Feeding/fluids: regular Analgesia: tylenol, oxy Sedation: na Thromboprophylaxis: hold warfarin currently Head up position: na Ulcer prophylaxis: na Glycemic control: insulin protocol Spontaneous breathing trial: na Bowel care: miralax prn Indwelling catheter removal: na Deescalation of antibiotics: deescalated to cipro/doxy I spent a total of 55 minutes in direct patient care, including [id number] time with the patient and/or family, reviewing medical records, ordering and reviewing diagnostic tests, and coordinating care with other healthcare providers. This time includes: history taking, physical examination, medical decision making, counseling, ECG interpretation, imaging interpretation, lab interpretation, orders, and education, excluding time spent in the performance of separately billed services. Admission and Anticipated Discharge Date Admission Date: May 24, 2024 Subjective patient seen and examined at bedside. Patient states he sees no reason why he Cant go home, he feels he is thriving at home. He states he is very depressed, and is really struggling overall. When asked how he is going to manage at home, he says he will manage just fine, but unable to provide any details on this. he states he is in pain in his legs bilaterally. Review of Systems Review of Systems: CONSTITUTIONAL: Patient denies fevers, chills, sweats and weight changes. EYES: Patient denies any visual symptoms. EARS, NOSE, AND THROAT: No difficulties with hearing. No symptoms of rhinitis or sore throat. CARDIOVASCULAR: Patient denies chest pains, palpitations, orthopnea and paroxysmal nocturnal dyspnea. RESPIRATORY: No dyspnea on exertion, no wheezing or cough. GI: stomach ache : No urinary hesitancy or dribbling. No nocturia or urinary frequency. No abnormal urethral discharge. MUSCULOSKELETAL: pain in bilateral LE, left stump erythema NEUROLOGIC: No chronic headaches, no seizures. Patient denies numbness, tingling or weakness. PSYCHIATRIC: depression, anxiety ENDOCRINE: No excessive urination or excessive thirst. DERMATOLOGIC: left stump erythema Physical Exam Physical Exam: Gen: A&O 3 NAD, large body habitus HEENT: NCAT, EOMI, not icteric. External ears normal. No rhinorrhea. Moist mucous membranes. Neck: Supple, full range of motion, no observable masses, No meningeal sign. Lungs: No Respiratory distress. CV: RRR, no edema. Abdomen: Soft, nondistended, No rebound tenderness. MSK: noted erythema on left stump, slightly improved from prior Skin: see above Neuro: Normal Gait, Grossly intact. Psych: depressed affect, denies suicidal ideation today Results & Data Results & Data Vital Signs (Past 12 Hours) Vital Signs Temp Pulse Pulse Resp BP Pulse Ox O2 Del Method 05/26/24 10:31 Room Air 05/26/24 10:31 73 05/26/24 07:12 36.5 C 77 18 126/81 94 Room Air 05/26/24 03:31 73 20 118/77 95 Room Air Laboratory Results - Personally interpreted, INR has decreased by holding warfarin, echo shows worsening heart failure with an EF 30 to 35%, significant pulmonary hypertension and mitral regurgitation Medications Administered Acetaminophen (Acetaminophen 500 Mg Tab) 500 mg PO Q6H PRN PRN Reason: fever/pain Stop: 06/23/24 00:56 Last Admin: 05/24/24 13:07 Dose: 500 mg Documented By: Admin: 05/24/24 05:26 Dose: 500 mg Documented By: [facility] Aspirin (Aspirin 81 Mg Ectab) 81 mg PO DAILY MATT Stop: 06/23/24 08:59 Last Admin: 05/26/24 11:34 Dose: Not Given Documented By: Admin: 05/25/24 09:19 Dose: 81 mg Documented By: Admin: 05/24/24 08:10 Dose: 81 mg Documented By: MES Betamethasone Valerate (Betamethasone Maryann 0.1% Cr 15 Gm) 1 appln TOP TID MATT Stop: 06/23/24 08:59 Last Admin: 05/26/24 11:34 Dose: Not Given Documented By: Admin: 05/25/24 20:43 Dose: 1 appln Documented By: Admin: 05/25/24 13:09 Dose: 1 appln Documented By: Admin: 05/25/24 09:20 Dose: 1 appln Documented By: Admin: 05/24/24 21:22 Dose: 1 appln Documented By: Admin: 05/24/24 17:28 Dose: 1 appln Documented By: Admin: 05/24/24 08:11 Dose: 1 appln Documented By: AUGUSTA Ciprofloxacin (Ciprofloxacin 500 Mg Tab) 500 mg PO DAILY [facility]; Protocol Stop: 06/02/24 08:59 Last Admin: 05/26/24 11:34 Dose: Not Given Documented By: CAMRYN Doxycycline Hyclate (Doxycycline Hyclate 100 Mg Cap) 100 mg PO BID [facility] Stop: 06/02/24 08:59 Last Admin: 05/26/24 11:34 Dose: Not Given Documented By: CAMRYN Duloxetine HCl (Duloxetine Hcl 30 Mg Cap) 30 mg PO QAM [facility] Stop: 06/24/24 16:29 Last Admin: 05/26/24 11:34 Dose: Not Given Documented By: Admin: 05/25/24 17:29 Dose: 30 mg Documented By: CAMRYN Famotidine (Famotidine 10 Mg Tablet) 10 mg PO BID PRN PRN Reason: gerd Stop: 06/24/24 20:59 Last Admin: 05/26/24 03:28 Dose: 10 mg Documented By: Admin: 05/25/24 20:43 Dose: 10 mg Documented By: Admin: 05/25/24 12:54 Dose: 10 mg Documented By: PRIYA Diltiazem HCl 125 mg/ Dextrose 125 mls @ 0 mls/hr IV .Q0M [facility]; Protocol Stop: 06/22/24 19:14 Last Titration: 05/26/24 12:26 Dose: Infused Documented By: CAMRYN Co-signed By: KYLEE Titration: 05/24/24 03:08 Dose: 0 mg/hr, 0 mls/hr Documented By: SHERI Co-signed By: SERINA Titration: 05/23/24 22:29 Dose: 2.5 mg/hr, 2.5 mls/hr Documented By: JUAN Co-signed By: LARISSA Admin: 05/23/24 21:03 Dose: 5 mg/hr, 5 mls/hr Documented By: JUAN Co-signed By: LARISSA Promethazine HCl (Phenergan) 12.5 mg in 50.5 mls @ 202 mls/hr IV Q6H PRN PRN Reason: Nausea And Vomiting Stop: 06/23/24 00:56 Last Infusion: 05/25/24 17:50 Dose: Infused Documented By: Admin: 05/25/24 17:29 Dose: 202 mls/hr Documented By: DTT Insulin Aspart (Insulin Aspart Per Unit Charge) 0 units SC ACHS MATT Stop: 06/23/24 07:29 Last Admin: 05/26/24 12:32 Dose: Not Given Documented By: Admin: 05/26/24 11:33 Dose: Not Given Documented By: Admin: 05/25/24 20:33 Dose: Not Given Documented By: Admin: 05/25/24 17:01 Dose: 5 units Documented By: DTT Co-signed By: DANIS Admin: 05/25/24 13:12 Dose: 11 units Documented By: PRIYA Co-signed By: DANIS Admin: 05/25/24 09:12 Dose: 19 units Documented By: PRIYA Co-signed By: ELIZABETH Admin: 05/24/24 20:12 Dose: Not Given Documented By: Admin: 05/24/24 17:39 Dose: 16 units Documented By: AUGUSTA Co-signed By: MAK Admin: 05/24/24 12:22 Dose: 21 units Documented By: AUGUSTA Co-signed By: DANIS Admin: 05/24/24 08:48 Dose: 19 units Documented By: AUGUSTA Co-signed By: MAK Insulin Glargine (Lantus Per Unit Charge) 0 units SC BID MATT; Protocol Stop: 06/24/24 20:59 Last Admin: 05/26/24 11:34 Dose: Not Given Documented By: Admin: 05/25/24 20:42 Dose: 25 units Documented By: SIENNA Co-signed By: CASSIE Levothyroxine Sodium (Levothyroxine Sodium 88 Mcg Tablet) 88 mcg PO DAILYBB MATT Stop: 06/23/24 06:29 Last Admin: 05/26/24 05:59 Dose: 88 mcg Documented By: Admin: 05/25/24 05:13 Dose: 88 mcg Documented By: Admin: 05/24/24 06:43 Dose: 88 mcg Documented By: ROMINA Lisinopril (Lisinopril 2.5 Mg Tab) 2.5 mg PO QAM [facility] Stop: 06/24/24 08:59 Last Admin: 05/26/24 11:35 Dose: Not Given Documented By: Admin: 05/25/24 09:26 Dose: 2.5 mg Documented By: PRIYA Loratadine (Loratadine 10 Mg Tab) 10 mg PO DAILY [facility] Stop: 06/24/24 08:59 Last Admin: 05/26/24 11:35 Dose: Not Given Documented By: Admin: 05/25/24 09:21 Dose: 10 mg Documented By: PRIYA Metoprolol Succinate (Metoprolol Succ 50mg Ext Rel Tab) [facility] [place] [place] Stop: 06/25/24 08:59 Last Admin: 05/26/24 11:36 Dose: Not Given Documented By: CAMRYN Nystatin (Nystatin Powder 15gm Btl) 1 appln EXT BID [facility] Stop: 06/23/24 00:59 Last Admin: 05/26/24 11:36 Dose: Not Given Documented By: Admin: 05/25/24 20:43 Dose: 1 appln Documented By: Admin: 05/25/24 09:20 Dose: 1 appln Documented By: Admin: 05/24/24 21:22 Dose: 1 appln Documented By: Admin: 05/24/24 03:16 Dose: 1 appln Documented By: SHERI Oxycodone HCl (Oxycodone Hcl Ir 5 Mg Tab (Immediate Release)) 5 - 10 mg PO QID PRN PRN Reason: Pain Stop: 06/07/24 00:55 Last Admin: 05/26/24 12:22 Dose: 10 mg Documented By: Admin: 05/26/24 06:10 Dose: 10 mg Documented By: Admin: 05/25/24 21:19 Dose: 10 mg Documented By: Admin: 05/25/24 17:44 Dose: 10 mg Documented By: Admin: 05/24/24 21:26 Dose: 10 mg Documented By: Admin: 05/24/24 18:39 Dose: 10 mg Documented By: Admin: 05/24/24 13:07 Dose: 10 mg Documented By: Admin: 05/24/24 08:46 Dose: 10 mg Documented By: AUGUSTA Pantoprazole Sodium (Pantoprazole 40 Mg Tab) 40 mg PO DAILY MATT Stop: 06/25/24 08:59 Last Admin: 05/26/24 11:36 Dose: Not Given Documented By: DTT Polyethylene Glycol (Polyethylene (Miralax) 17 Gm Pack) 17 gm PO DAILY [facility] Stop: 06/24/24 11:59 Last Admin: 05/26/24 11:36 Dose: Not Given Documented By: Admin: 05/25/24 12:52 Dose: 17 gm Documented By: CNB Spironolactone (Spironolactone 12.5 Mg Tab) 12.5 mg PO DAILY [facility] Stop: 06/25/24 08:59 Last Admin: 05/26/24 11:36 Dose: Not Given Documented By: DTT (8) CKD (chronic kidney disease) stage 3, GFR 30-59 ml/min Chronic kidney disease stage 3 subtype: stage 3a (GFR 45-59) Qualified Code(s): N18.31 - Chronic kidney disease, stage 3a
[2024-05-26] MEDS: PREGABALIN 50 MG CAP PO SCH (16:31)
--- NOTE | 2024-05-26 17:54 | Psychiatric Consultation ---
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 Adjustment Disorder with Anxiety. 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: Plan Pt was started on Duloxetine 30mg daily today; agree with this as it has efficacy for pain, mood symptoms and anxiety. Note that pt was evasive and provided conflicting information. Despite this limitation, he appears to understand his medical situation, is agreeable to continuing treatment and to work with primary team. History indicates significant impairment in his ability to live independently. Recommend SW consult to review alternatives e.g. home health aide. Psych liaison will follow up and reevaluate if capacity question arises with regards to disposition. D/W attending. Overall, I spent a total of 90 minutes with this case including review of chart records, review of labwork, direct evaluation of the patient at bedside, counseling the patient, discussion of the patient [with the Nurse and] [with the hospitalist provider], discussion with the psychiatric liason during clinical rounds, [review of collateral historian information from the family] and documentation in the electronic health record. Psych History Identifying Data 58-year-old male with past medical history significant for type 2 diabetes, diabetic polyneuropathy, diabetic retinopathy, testicular hypofunction, hyperlipidemia, hypothyroidism, obstructive sleep apnea, asthma in remission, chronic systolic and diastolic CHF, history of CAD, history of pulmonary hypertension, history of ventricular tachycardia, status post AICD, history of atrial fibrillation, history of chronic cor pulmonale, peripheral artery disease, venous stasis ulcers, hypertension, morbid obesity, vitamin D deficiency, chronic ulcer of the right lower leg, anemia, status post left BKA, depression, statin intolerance. He was admitted for failure to thrive. Psychiatry was consulted to assess for suicide risk as pt expressed passive SI without intent or plan.History is of questionable reliability as he provided contradictory information at different points in the interview. Chief Complaint "I'm not happy with my treatment". History of Present Illness Background History: Pt is currently being treated for right leg cellulitis. Of note, this is the latest in a series of hospitalizations related to a failure to thrive at home. Per hospitalist, pt was found by EMS with a dog at door, in poor living conditions and has an active APS case for risk of harm to self living alone at this time. Pt reports that he declined to take medication this morning as he was dissatisfied with various aspects of his treatment. Specifically, he "is in pain and what he is getting is not covering it. He endorses a lot of anxiety about hospitals because "he has not always had a good experience". He is afraid of being forced to go to SNFs as he had a bad experience at [facility]. He is overwhelmed and frustrated by being admitted repeatedly. He is also dissatisfied with the communication by his primary team and reports noone has sat with him to explain the details of his clinical status, findings and treatment plan. He is "hungry and wants sausages, eggs and pancakes". He also reports that his pain is not well controlled and prefers a recliner.He denied depressive symptoms at this time. He denied passive or active suicidal ideation intent or plan. Denied psychosis. He also denied that a pet was found in his apartment. Notably, he expressed an interest in being prescribed Adderall for anxiety. Per attending, he sat down with the patient for 30 minutes today to discuss his clinical status, team's findings and plan in detail. During that visit, pt reported feeling depressed. Pt has not been observed to be confused during this admission. No evident altered mental status. In his opinion pt retains capacity with regards to medical care. However, has displayed inability to live independently over a significant period of time. Per attending, he shows limited limited insight questionable judgment with regards to disposition. Family and Social History: Raised in [place]. He has held several jobs, currently on disability. Reports graduate (? technical) education. Has 2 grown children; son (estranged) and daughter who remains involved. One sister with Schizophrenia. Past Psychiatric History Previous Psych History: Pt initially denied any prior psychiatric treatment but later stated that he has seen a mental health clinician (unclear what type) for talk therapy. He has been prescribed Sertraline and Duloxetine in the past. Denied prior psych admissions, suicide attempts, psychosis, confusion. WON: He denied any drug use. Previous Psych Admissions: Denied any. Do You Have Access To A Gun?: No History of Previous Suicide Attempt: No Describe Attempts in the Past: Denied any. Past Medication Trials: Sertraline, Duloxetine. Allergies Allergy/AdvReac Type Severity Reaction Status Date / Time benzonatate AdvReac Intermediate choking, Verified 01/07/24 13:17 gagging Home Medications Medication Instructions Recorded Confirmed Type Claudia Urenaostar U-100 Insulin 40 units SC BID 02/08/24 02/09/24 History acetaminophen 325 mg tablet 650 mg PO QID PRN Pain 02/08/24 05/24/24 History (Tylenol) aspirin 81 mg tablet,delayed 81 mg PO DAILY 02/08/24 05/24/24 History release atorvastatin 80 mg tablet 80 mg PO DAILY 02/08/24 05/24/24 History ergocalciferol (vitamin D2) 50,000 50,000 unit PO WK 02/08/24 05/24/24 History unit tablet ferrous sulfate 325 mg (65 mg 325 mg PO BID 02/08/24 05/24/24 History iron) tablet hyoscyamine sulfate 0.125 mg tablet 0.125 mg PO Q4H PRN Abdominal Pain 02/08/24 05/24/24 History insulin aspart U-100 100 unit/mL 10 unit subcut AC 02/08/24 02/09/24 History subcutaneous solution (Novolog U-100 Insulin aspart) levothyroxine 88 mcg tablet 88 mcg PO DAILY 02/08/24 05/24/24 History metoprolol tartrate 50 mg tablet 50 mg PO BID 02/08/24 05/24/24 History multivitamin,aa-jxdt-Kn-FA-min 1 tab PO DAILY 02/08/24 02/09/24 History nystatin 1 applic EXT UD 02/08/24 05/24/24 History omeprazole 20 mg capsule,delayed 20 mg PO DAILY 02/08/24 05/24/24 History release oxycodone 10 mg tablet 10 mg PO Q4H PRN Pain, Severe 02/08/24 05/24/24 History potassium chloride 20 mEq 20 meq PO BID 02/08/24 05/24/24 History tablet,extended release(part/cryst) pregabalin 50 mg capsule 50 mg PO BID 02/08/24 05/24/24 History sitagliptin phosphate 50 mg tablet 50 mg PO DAILY 02/08/24 05/24/24 History (Januvia) spironolactone 25 mg tablet 25 mg PO DAILY 02/09/24 05/24/24 History triamcinolone acetonide 0.1 % 1 applic topical TID 02/09/24 05/24/24 History lotion warfarin 3 mg tablet 3 mg PO DAILY 02/09/24 05/24/24 History ammonium lactate 12 % lotion 1 applic topical DAILY 05/24/24 05/24/24 History betamethasone dipropionate 0.05 % 1 applic topical BID 05/24/24 05/24/24 History topical cream loratadine 10 mg tablet 10 mg PO DAILY 05/24/24 05/24/24 History torsemide 20 mg tablet 20 mg PO BID 05/24/24 05/24/24 History Patient History Medical History Osteomyelitis of foot, right, acute Diabetes Acute on chronic combined systolic and diastolic CHF (congestive heart failure) Depression with suicidal ideation Acute osteomyelitis of left foot T2DM (type 2 diabetes mellitus) CHF (congestive heart failure) Acute on chronic combined systolic (congestive) and diastolic (congestive) heart failure Diabetic ulcer of right foot Sustained ventricular tachycardia Pneumonia due to COVID-19 virus SARS-CoV-2 positive Sepsis Cellulitis of left lower leg Diabetic ulcer of left heel associated with diabetes mellitus due to underlying condition, limited to breakdown of skin Acute on chronic renal failure Acute hypoxemic respiratory failure Sleep apnea BIPAP Rectal bleeding Depression Deformity of foot Adams fracture Base of left fifth metatarsal, nonhealing x years Diabetic ulcer of left foot associated with type 2 diabetes mellitus, with fat layer exposed Hx of sepsis 06/2019 Arthritis Venous stasis ulcer of right lower leg with edema of right lower leg Hypokalemia Bacteremia due to group B Streptococcus Lymphedema Sustained VT (ventricular tachycardia) GERD (gastroesophageal reflux disease) Hx of osteomyelitis Hx of myocardial infarction found on testing Asthma well controlled, 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 CKD (chronic kidney disease) stage 3, GFR 30-59 ml/min Surgical History History of esophagogastroduodenoscopy (EGD) H/O foot surgery LEFT FOOT ULCER DEBRIDEMENT H/O cardiac radiofrequency ablation OCTOBER 2019 ([facility]) AT [facility] History of cardiac cath V. tach -- no stent. 06/2019. unsure where it was done History of sinus surgery Hx of tonsillectomy History of colonoscopy Hx of amputation of lesser toe H/O shoulder surgery left Family History Sister Family history of diabetes mellitus 2 Grandmother (Maternal) Family history of diabetes mellitus Grandfather (Maternal) Family history of diabetes mellitus Father Cancer Mother Cancer Other No family history of adverse response to anesthesia Social History Smoking Status: Never smoker Second Hand Exposure: No; Do You Dip or Chew Tobacco: No; Tobacco Cessation Education Requested by Patient: No Hx Alcohol Use: No Hx Substance Use: No Preferred Language: Congolese Communication Ability: Effective Customer Relations Representative Required: No Beliefs That Will Affect Care: Spiritual marital status: Current Living Situation: Alone current occupational status: disabled How many Children do You have: 3 Other Information That Helps Us Care for You: No Feels Safe at Home: Yes Safety Concerns: Feels Safe At This Time Assistive Devices: Prosthesis, Scooter/Electric Scooter and Wheelchair Physical Exam Psychiatric: Obese, dressed in hospital gowns, appears fatigued, guarded, evasive. Orientation: alert, oriented to person, oriented to place and cooperative Apperance: appropriately dressed and + disheveled Eye Contact: good eye contact Motor Behavior: + psychomotor retardation Speech: normal rate/ rhythm/volume of speech Affect: mood congruent with affect Mood: + anxious mood and + dysphoric mood Thought Process: goal directed thought process, linear/logical thought process and clear/coherent thought process Thought Content: + preoccupation Suicidal Thoughts: denies suicidal thoughts, denies suicidal plan and denies suicidal intent Homicidal Thoughts: denies homicidal thoughts, denies homicidal plan and denies homicidal intent Cognition: recent memory grossly intact, remote memory grossly intact, attention grossly intact and language grossly intact Estimated Intelligence: average estimated intelligence and consistent with education level Insight: good insight Limited insight with regards to risks of his living situation. Judgment: + limited judgement Fair judgment with regards to healthcare. Vital Signs (Past 24 Hours): Last Vital Signs Temp 37.0 C 05/26/24 16:16 Pulse 77 05/26/24 16:16 Resp 18 05/26/24 16:16 BP 125/80 05/26/24 16:16 Pulse Ox 95 05/26/24 16:16 O2 Del Method Room Air 05/26/24 16:16 O2 Flow Rate 2 05/23/24 22:31 Results & Data (PSY) Medications Administered Acetaminophen (Acetaminophen 500 Mg Tab) 500 mg PO Q6H PRN PRN Reason: fever/pain Stop: 06/23/24 00:56 Last Admin: 05/26/24 17:02 Dose: 500 mg Documented By: Admin: 05/24/24 13:07 Dose: 500 mg Documented By: Admin: 05/24/24 05:26 Dose: 500 mg Documented By: SHERI Aspirin (Aspirin 81 Mg Ectab) 81 mg PO DAILY [facility] Stop: 06/23/24 08:59 Last Admin: 05/26/24 11:34 Dose: Not Given Documented By: Admin: 05/25/24 09:19 Dose: 81 mg Documented By: Admin: 05/24/24 08:10 Dose: 81 mg Documented By: AUGUSTA Betamethasone Valerate (Betamethasone Maryann 0.1% Cr 15 Gm) 1 appln TOP TID [facility] Stop: 06/23/24 08:59 Last Admin: 05/26/24 16:31 Dose: 1 appln Documented By: Admin: 05/26/24 11:34 Dose: Not Given Documented By: Admin: 05/25/24 20:43 Dose: 1 appln Documented By: Admin: 05/25/24 13:09 Dose: 1 appln Documented By: Admin: 05/25/24 09:20 Dose: 1 appln Documented By: Admin: 05/24/24 21:22 Dose: 1 appln Documented By: Admin: 05/24/24 17:28 Dose: 1 appln Documented By: Admin: 05/24/24 08:11 Dose: 1 appln Documented By: AUGUSTA Doxycycline Hyclate (Doxycycline Hyclate 100 Mg Cap) 100 mg PO BID [facility] Stop: 06/02/24 08:59 Last Admin: 05/26/24 11:34 Dose: Not Given Documented By: CAMRYN Duloxetine HCl (Duloxetine Hcl 30 Mg Cap) 30 mg PO QAM [facility] Stop: 06/24/24 16:29 Last Admin: 05/26/24 11:34 Dose: Not Given Documented By: Admin: 05/25/24 17:29 Dose: 30 mg Documented By: CAMRYN Famotidine (Famotidine 10 Mg Tablet) 10 mg PO BID PRN PRN Reason: gerd Stop: 06/24/24 20:59 Last Admin: 05/26/24 03:28 Dose: 10 mg Documented By: Admin: 05/25/24 20:43 Dose: 10 mg Documented By: Admin: 05/25/24 12:54 Dose: 10 mg Documented By: PRIYA Diltiazem HCl 125 mg/ Dextrose 125 mls @ 0 mls/hr IV .Q0M MATT; Protocol Stop: 06/22/24 19:14 Last Titration: 05/26/24 12:26 Dose: Infused Documented By: CAMRYN Co-signed By: KYLEE Titration: 05/24/24 03:08 Dose: 0 mg/hr, 0 mls/hr Documented By: AMC Co-signed By: SERINA Titration: 05/23/24 22:29 Dose: 2.5 mg/hr, 2.5 mls/hr Documented By: CEF Co-signed By: LARISSA Admin: 05/23/24 21:03 Dose: 5 mg/hr, 5 mls/hr Documented By: CEF Co-signed By: LARISSA Promethazine HCl (Phenergan) 12.5 mg in 50.5 mls @ 202 mls/hr IV Q6H PRN PRN Reason: Nausea And Vomiting Stop: 06/23/24 00:56 Last Infusion: 05/26/24 13:50 Dose: Infused Documented By: Admin: 05/26/24 13:05 Dose: 202 mls/hr Documented By: Infusion: 05/25/24 17:50 Dose: Infused Documented By: Admin: 05/25/24 17:29 Dose: 202 mls/hr Documented By: CAMRYN Insulin Aspart (Insulin Aspart Per Unit Charge) 0 units SC [facility] Stop: 06/23/24 07:29 Last Admin: 05/26/24 12:32 Dose: Not Given Documented By: Admin: 05/26/24 11:33 Dose: Not Given Documented By: Admin: 05/25/24 20:33 Dose: Not Given Documented By: Admin: 05/25/24 17:01 Dose: 5 units Documented By: DTT Co-signed By: DANIS Admin: 05/25/24 13:12 Dose: 11 units Documented By: PRIYA Co-signed By: DANIS Admin: 05/25/24 09:12 Dose: 19 units Documented By: PRIYA Co-signed By: ELIZABETH Admin: 05/24/24 20:12 Dose: Not Given Documented By: Admin: 05/24/24 17:39 Dose: 16 units Documented By: AUGUSTA Co-signed By: MAK Admin: 05/24/24 12:22 Dose: 21 units Documented By: AUGUSTA Co-signed By: DANIS Admin: 05/24/24 08:48 Dose: 19 units Documented By: AUGUSTA Co-signed By: MAK Insulin Glargine (Lantus Per Unit Charge) 0 units SC BID [facility]; Protocol Stop: 06/24/24 20:59 Last Admin: 05/26/24 11:34 Dose: Not Given Documented By: Admin: 05/25/24 20:42 Dose: 25 units Documented By: SIENNA Co-signed By: CASSIE Levothyroxine Sodium (Levothyroxine Sodium 88 Mcg Tablet) [facility] Stop: 06/23/24 06:29 Last Admin: 05/26/24 05:59 Dose: 88 mcg Documented By: Admin: 05/25/24 05:13 Dose: 88 mcg Documented By: Admin: 05/24/24 06:43 Dose: 88 mcg Documented By: ROMINA Lisinopril (Lisinopril 2.5 Mg Tab) 2.5 mg PO [facility] Stop: 06/24/24 08:59 Last Admin: 05/26/24 11:35 Dose: Not Given Documented By: Admin: 05/25/24 09:26 Dose: 2.5 mg Documented By: PRIYA Loratadine (Loratadine 10 Mg Tab) 10 mg PO DAILY [facility] Stop: 06/24/24 08:59 Last Admin: 05/26/24 11:35 Dose: Not Given Documented By: Admin: 05/25/24 09:21 Dose: 10 mg Documented By: PRIYA Metoprolol Succinate (Metoprolol Succ 50mg Ext Rel Tab) 150 mg PO [facility] Stop: 06/25/24 08:59 Last Admin: 05/26/24 11:36 Dose: Not Given Documented By: DTT Nystatin (Nystatin Powder 15gm Btl) 1 appln EXT BID [facility] Stop: 06/23/24 00:59 Last Admin: 05/26/24 11:36 Dose: Not Given Documented By: Admin: 05/25/24 20:43 Dose: 1 appln Documented By: Admin: 05/25/24 09:20 Dose: 1 appln Documented By: Admin: 05/24/24 21:22 Dose: 1 appln Documented By: Admin: 05/24/24 03:16 Dose: 1 appln Documented By: SHERI Oxycodone HCl (Oxycodone Hcl Ir 5 Mg Tab (Immediate Release)) 5 - 10 mg PO QID PRN PRN Reason: Pain Stop: 06/07/24 00:55 Last Admin: 05/26/24 12:22 Dose: 10 mg Documented By: Admin: 05/26/24 06:10 Dose: 10 mg Documented By: Admin: 05/25/24 21:19 Dose: 10 mg Documented By: Admin: 05/25/24 17:44 Dose: 10 mg Documented By: Admin: 05/24/24 21:26 Dose: 10 mg Documented By: Admin: 05/24/24 18:39 Dose: 10 mg Documented By: Admin: 05/24/24 13:07 Dose: 10 mg Documented By: Admin: 05/24/24 08:46 Dose: 10 mg Documented By: AUGUSTA Pantoprazole Sodium (Pantoprazole 40 Mg Tab) 40 mg PO DAILY [facility] Stop: 06/25/24 08:59 Last Admin: 05/26/24 11:36 Dose: Not Given Documented By: DTT Polyethylene Glycol (Polyethylene (Miralax) 17 Gm Pack) 17 gm PO DAILY [facility] Stop: 06/24/24 11:59 Last Admin: 05/26/24 11:36 Dose: Not Given Documented By: Admin: 05/25/24 12:52 Dose: 17 gm Documented By: PRIYA Pregabalin (Pregabalin 50 Mg Cap) 50 mg PO TID [facility] Stop: 06/25/24 13:59 Last Admin: 05/26/24 16:31 Dose: 50 mg Documented By: DTT Spironolactone (Spironolactone 12.5 Mg Tab) 12.5 mg PO DAILY [facility] Stop: 06/25/24 08:59 Last Admin: 05/26/24 11:36 Dose: Not Given Documented By: DTT [place] [address] [facility] Intl Hosp Care Lvl 1 Patient Type New History Detailed Exam Detailed Medical Decision Making Low Complexity Diagnoses 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 Time Spent (min) 90
[2024-05-26] MEDS: levoFLOXacin 500 MG TAB PO SCH (20:27)
[2024-05-26] MEDS: diphenhydrAMINE 50 MG/ML VIAL IV STA (23:09)
--- NOTE | 2024-05-27 00:06 | CT Scan Report ---
Exam(s): CT ABDOMEN + PELVIS Without Contrast EXAM: CT Abdomen and Pelvis Without Intravenous Contrast CLINICAL HISTORY: Reason for exam: abd pain, coumadin. TECHNIQUE: Axial computed tomography images of the abdomen and pelvis without intravenous contrast. CTDI is 28.14 mGy and DLP is 1513.9 mGy-cm. Automated exposure control was utilized for the study. A dose lowering technique was utilized adhering to the principles of ALARA. COMPARISON: CT abdomen/pelvis on 05/26/2023 FINDINGS: Lung bases: Dependent and basilar atelectasis. Pleural space: Small right and trace left pleural effusions. ABDOMEN: Liver: Unremarkable. Gallbladder and bile ducts: Cholelithiasis. No ductal dilation. Pancreas: Atrophy of the pancreas. No ductal dilation. Spleen: Mild splenomegaly. Adrenals: Unremarkable. No mass. Kidneys and ureters: Nonspecific bilateral perinephric fat stranding. No hydronephrosis or stone. Stomach and bowel: Large amount of stool in the colon. No small bowel obstruction. No mucosal thickening. PELVIS: Appendix: Normal appendix. Bladder: Underdistended bladder limits evaluation. No stones. Reproductive: Unremarkable as visualized. Subperitoneal space: Small amount of presacral fluid. ABDOMEN and PELVIS: Intraperitoneal space: Trace ascites. No free air. Bones/joints: Degenerative changes of the spine. No acute fracture. No dislocation. Soft tissues: Body wall edema. Vasculature: Atherosclerotic changes of the vasculature. No abdominal aortic aneurysm. Lymph nodes: Unremarkable. No enlarged lymph nodes. IMPRESSION: 1. Large amount of stool in the colon. No small bowel obstruction. 2. Small right and trace left pleural effusions. 3. Cholelithiasis. Electronically signed by: Kemar Mcpherson M.D. 05/27/24 00:05 AM
--- NOTE | 2024-05-27 01:23 | Communication Note ---
Date of Service: May 27, 2024 Patient complains of burning right eye pain with some redness and drainage as per RN. No change in vision as per patient. Topical Polytrim for now bacterial conjunctivitis right.
[2024-05-27] MEDS: DOCUSATE SODIUM/SENNA 50/8.6MG TAB PO SCH (01:36)
[2024-05-27] MEDS: HYDROmorphone INJ 0.5 MG/0.5 ML SYR IV STA (01:36)
[2024-05-27] MEDS: LACTULOSE SYRUP 30 GM/45 ML UDP PO STA (02:00)
[2024-05-27] MEDS: TRIMETHOPRIM/POLYMYXIN B OPR SCH (02:00)
[2024-05-27 07:36] LABS: Hematocrit (blood only) 35.5 % (42.0-52.0); Hemoglobin 10.8 g/dl (14.0-18.0); Mean Corpuscular Hemoglobin 26.5 pg (25.0-34.0); Mean Corpuscular Hgb Conc 30.4 g/dL (32.0-36.0); Mean Corpuscular Volume 87.2 fL (80.0-100.0); Mean Platelet Volume 9.3 fL (9.4-12.4); Platelet Count 323 K/uL (130-400); RDW Coefficient of Variation 19.8 % (11.5-14.5); RDW Standard Deviation 61.4 fL (36.4-46.3); Red Blood Count 4.07 M/uL (4.70-6.10); White Blood Count 5.74 K/ul (4.8-10.8)
[2024-05-27 07:39] LABS: Albumin Globulin Ratio 0.7 (0.9-2); Albumin Level 2.8 gm/dl (3.4-5.0); BUN Creatinine Ratio 22.6 (10-20); Bilirubin,Total 0.9 mg/dl (0.2-1.0); Calcium 8.6 mg/dl (8.6-10.3); Creatinine Clr Calc Pharmacy 144.6 ml/min; Globulin 4.3 gm/dl (2.5-4.0); Potassium 3.6 mmol/L (3.5-5.1); Total Protein 7.1 gm/dl (6.0-8.3)
[2024-05-27 07:49] LABS: INR 3.4 (0.9-1.1); Prothrombin Time 33.3 Seconds (9.0-12.0)
[2024-05-27] MEDS: METHYLNALTREXONE BROMIDE 12 MG/0.6 ML VIAL SQ STA (07:59)
[2024-05-27] MEDS: DULoxetine HCL 30 MG CAP PO ONE (11:01)
--- NOTE | 2024-05-27 13:11 | Pharmacy Report ---
Pharmacy Glycemic Short Note 2 - Date of Service May 27, 2024 - Glycemic Short BSG Results (Last 24 hours): 05/26/24 05/26/24 05/27/24 17:44 20:23 06:20 Glucose 140 H POC Glucose 124 H 133 H 05/27/24 05/27/24 07:16 11:22 Glucose POC Glucose 140 H 164 H OUTPATIENT ANTIDIABETIC REGIMEN: * Novolog pump * pre-meal target range: 90-150 mg/dL * post-meal target range: <220 mg/dL * Carb ratio: 1:3 g/unit * Correction factor: 1:30 unit/mg/dL * Basal rate: 7 units/hr (8773-3551), 6 units/hr (9175-7325), 7 units/hr (5707-9778) - 155 units/day HbA1c: 7.5% (02/09/24), 8.1% (04/2024 per H&P) ASSESSMENT: 05/27/24 * BSGs have been fairly stable for the past 48 hours. * Pt refused his morning insulin yesterday, so BSGs have been trending up today, but still reasonable. * Pt has requested a regular diet rather than a diabetic diet. * Slight adjustment made to Lantus dosing this morning in an attempt to avoid hypoglycemia and discourage pt refusal of doses. * Pharmacy will continue to follow and adjust regimen as indicated. 05/24/24 * CG is a 58 year old male who presents to ED s/p mechanical fall out of wheelchair * Patient is well-known to pharmacy glycemic service s/p multiple admissions/consultations * Reasonably well-controlled T2DM as an outpatient with Novolog insulin pump (fairly large daily insulin doses) * Insulin pump removed prior to admission * Will utilize pump settings and prior inpatient glycemic data to guide initial SC insulin dosing PLAN FOR INPATIENT GLYCEMIC CONTROL: * Hold insulin pump * Basal insulin * Lantus 25-30 units SC BID, based on BSG (see EMR for details) * Bolus insulin * NovoLog per scale ACHS or Q6hrs while NPO * Goal Range: Low 110 mg/dL - High 140 mg/dL * Correction Factor: 30 mg/dL/unit * Nutritional / Prandial insulin per carb ratio of 1 unit per 3 grams CHO consumed
[2024-05-27] MEDS: ACETAMINOPHEN 1,000 MG/100 ML VIAL IV STA (16:13)
[2024-05-27] MEDS: HYDROmorphone HCL 2 MG TAB PO PRN (17:18)
--- NOTE | 2024-05-27 17:37 | Hospitalist Progress Note ---
Date of Service May 27, 2024 Assessment & Plan (1) Atrial fibrillation with RVR: Plan: -noted RVR on arrival, placed on dilt drip -appears much improved this morning, likely in setting of poor self care at home and medicaion compliance Plan: -continue metoprolol succinate 150 mg daily -increase aldactone, lisinopril, well tolerated -restart warfarin tomorrow (2) Chronic systolic heart failure: Plan: -noted on echo, EF slightly decreased to 30-35% -does not appear fluid overloaded at this time Plan: -optimize GDMT -see above -add SGLT 2 inhibitor pending dose increases of above (3) Adult failure to thrive: Plan: -patient has had numerous hospitalizations in regards to failure to thrive at home -appears disheveled, found by EMS with pet at door, poor living conditions -high concern given psychiatric concerns and overall condition that patient will be unable to safely return home Plan: -PT/OT ordered -discussed with case resource manager, filled out APS requested forms in regards to disposition -of note, over my past few days patient has showed medical capacity in regards to his medical conditions, but has not exhibited understanding or appreciation of his ability to take care of himself, and is a danger to self living on his own at this time (4) Cellulitis of left lower leg: Plan: -suspect chronic stasis dermatitis with potential superimposed cellulitis -supported by CT femur, personally interpreted Plan: -given hemodynamic stability deescalate to doxy/cipro for 7 day course -dermatology consult outpatient given recurrence (5) 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: Plan: -relatively controlled Plan: -insulin protocol -regular diet given patient very depressed about current diet (6) PVD (peripheral vascular disease): Plan: -noted from prior, s/p left BKA amputation (7) Morbid obesity: Plan: -likely contributer to PVD and recurrent cellulitis (8) CKD (chronic kidney disease) stage 3, GFR 30-59 ml/min: Plan: -creatinine at baseline (9) NINA on CPAP: Plan: -continue CPAP (10) Cardiac defibrillator in situ: Plan: -noted (11) MDD (major depressive disorder), recurrent episode, mild: Plan: -patient has suicideal ideation without a plan, appears passive -patient is quite depressed, feels hopeless Plan: -psych consult, appreciate recs -suicide precautions -zyprexa prn for agitation -consult spiritual care, psychology as well (12) Suicidal ideation: Plan: -without plan -resolved today (13) Lymphedema: Plan: -likely contributer to cellulitis Plan: -f/u with [facility] (14) Chronic pain syndrome: Plan: -checked [employer], 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 Plan: -continue home oxycodone -increase duloxetine to 60 mg -continue pregablin to 50 tid for severe neuropathic pain Plan Feeding/fluids: regular Analgesia: tylenol, oxy Sedation: na Thromboprophylaxis: hold warfarin currently Head up position: na Ulcer prophylaxis: na Glycemic control: insulin protocol Spontaneous breathing trial: na Bowel care: miralax prn Indwelling catheter removal: na Deescalation of antibiotics: deescalated to cipro/doxy I spent a total of 50 minutes in direct patient care, including [id number] time with the patient and/or family, reviewing medical records, ordering and reviewing diagnostic tests, and coordinating care with other healthcare providers. This time includes: history taking, physical examination, medical decision making, counseling, ECG interpretation, imaging interpretation, lab interpretation, orders, and education, excluding time spent in the performance of separately billed services. Admission and Anticipated Discharge Date Admission Date: May 24, 2024 Subjective patient seen and examined at bedside. Patient is not doing well today. He states that he wants to go home, and can take care of himself. He states he is only willing to go to rehab at 1 specific facility, all others he does not want to go. He reiterates that he can take care of himself at home with minimal difficulty. Of note, patient continues to ask for increasing frequency and dosing of pain medications. Review of Systems Review of Systems: CONSTITUTIONAL: Patient denies fevers, chills, sweats and weight changes. EYES: Patient denies any visual symptoms. EARS, NOSE, AND THROAT: No difficulties with hearing. No symptoms of rhinitis or sore throat. CARDIOVASCULAR: Patient denies chest pains, palpitations, orthopnea and paroxysmal nocturnal dyspnea. RESPIRATORY: No dyspnea on exertion, no wheezing or cough. GI: stomach ache : No urinary hesitancy or dribbling. No nocturia or urinary frequency. No abnormal urethral discharge. MUSCULOSKELETAL: pain in bilateral LE, left stump erythema NEUROLOGIC: No chronic headaches, no seizures. Patient denies numbness, tingling or weakness. PSYCHIATRIC: depression, anxiety ENDOCRINE: No excessive urination or excessive thirst. DERMATOLOGIC: left stump erythema, improving Physical Exam Physical Exam: Gen: A&O 3 NAD, large body habitus HEENT: NCAT, EOMI, not icteric. External ears normal. No rhinorrhea. Moist mucous membranes. Neck: Supple, full range of motion, no observable masses, No meningeal sign. Lungs: No Respiratory distress. CV: RRR, no edema. Abdomen: Soft, nondistended, No rebound tenderness. MSK: noted erythema on left stump, improved from prior Skin: see above Neuro: Normal Gait, Grossly intact. Psych: depressed affect Results & Data Results & Data Vital Signs (Past 12 Hours) Vital Signs Temp Pulse Pulse Resp BP Pulse Ox O2 Del Method 05/27/24 15:45 84 19 110/69 98 Room Air 05/27/24 14:00 78 05/27/24 10:50 36.8 C 85 18 112/73 95 Room Air 05/27/24 08:30 Room Air 05/27/24 07:20 36.7 C 79 18 137/80 97 Room Air 05/27/24 07:00 73 Laboratory Results - Personally interpreted, creatinine at baseline, low albumin suggestive of malnutrition Medications Administered Acetaminophen (Acetaminophen 500 Mg Tab) 500 mg PO Q6H PRN PRN Reason: fever/pain Stop: 06/23/24 00:56 Last Admin: 05/27/24 12:40 Dose: 500 mg Documented By: Admin: 05/27/24 00:32 Dose: 500 mg Documented By: Admin: 05/26/24 17:02 Dose: 500 mg Documented By: Admin: 05/24/24 13:07 Dose: 500 mg Documented By: Admin: 05/24/24 05:26 Dose: 500 mg Documented By: [facility]C Aspirin (Aspirin 81 Mg Ectab) 81 mg PO DAILY MATT Stop: 06/23/24 08:59 Last Admin: 05/27/24 09:29 Dose: 81 mg Documented By: Admin: 05/26/24 11:34 Dose: Not Given Documented By: Admin: 05/25/24 09:19 Dose: 81 mg Documented By: Admin: 05/24/24 08:10 Dose: 81 mg Documented By: AUGUSTA Betamethasone Valerate (Betamethasone Maryann 0.1% Cr 15 Gm) 1 appln TOP TID MATT Stop: 06/23/24 08:59 Last Admin: 05/27/24 14:04 Dose: 1 appln Documented By: Admin: 05/27/24 09:30 Dose: 1 appln Documented By: Admin: 05/26/24 19:34 Dose: 1 appln Documented By: Admin: 05/26/24 16:31 Dose: 1 appln Documented By: Admin: 05/26/24 11:34 Dose: Not Given Documented By: Admin: 05/25/24 20:43 Dose: 1 appln Documented By: Admin: 05/25/24 13:09 Dose: 1 appln Documented By: Admin: 05/25/24 09:20 Dose: 1 appln Documented By: Admin: 05/24/24 21:22 Dose: 1 appln Documented By: Admin: 05/24/24 17:28 Dose: 1 appln Documented By: Admin: 05/24/24 08:11 Dose: 1 appln Documented By: AUGUSTA Doxycycline Hyclate (Doxycycline Hyclate 100 Mg Cap) 100 mg PO BID [facility] Stop: 06/02/24 08:59 Last Admin: 05/27/24 09:27 Dose: 100 mg Documented By: Admin: 05/26/24 19:33 Dose: 100 mg Documented By: Admin: 05/26/24 11:34 Dose: Not Given Documented By: DTT Famotidine (Famotidine 10 Mg Tablet) 10 mg PO BID PRN PRN Reason: gerd Stop: 06/24/24 20:59 Last Admin: 05/26/24 03:28 Dose: 10 mg Documented By: Admin: 05/25/24 20:43 Dose: 10 mg Documented By: Admin: 05/25/24 12:54 Dose: 10 mg Documented By: PRIYA Hydromorphone HCl (Hydromorphone Hcl 2 Mg Tab) 2 mg PO Q4 PRN PRN Reason: Pain Stop: 06/10/24 15:43 Last Admin: 05/27/24 17:18 Dose: 2 mg Documented By: CHRISTIE Diltiazem HCl 125 mg/ Dextrose 125 mls @ 0 mls/hr IV .Q0M MATT; Protocol Stop: 06/22/24 19:14 Last Titration: 05/26/24 12:26 Dose: Infused Documented By: CAMRYN Co-signed By: KYLEE Titration: 05/24/24 03:08 Dose: 0 mg/hr, 0 mls/hr Documented By: [facility]C Co-signed By: SERINA Titration: 05/23/24 22:29 Dose: 2.5 mg/hr, 2.5 mls/hr Documented By: CEF Co-signed By: LARISSA Admin: 05/23/24 21:03 Dose: 5 mg/hr, 5 mls/hr Documented By: CEF Co-signed By: LARISSA Promethazine HCl (Phenergan) 12.5 mg in 50.5 mls @ 202 mls/hr IV Q6H PRN PRN Reason: Nausea And Vomiting Stop: 06/23/24 00:56 Last Infusion: 05/26/24 13:50 Dose: Infused Documented By: Admin: 05/26/24 13:05 Dose: 202 mls/hr Documented By: Infusion: 05/25/24 17:50 Dose: Infused Documented By: Admin: 05/25/24 17:29 Dose: 202 mls/hr Documented By: CAMRYN Insulin Aspart (Insulin Aspart Per Unit Charge) 0 units SC [facility] Stop: 06/23/24 07:29 Last Admin: 05/27/24 17:18 Dose: 1 units Documented By: CHRISTIE Co-signed By: Admin: 05/27/24 12:36 Dose: 1 units Documented By: CHRISTIE Co-signed By: KYLEE Admin: 05/27/24 09:26 Dose: 8 units Documented By: CHRISTIE Co-signed By: KYLEE Admin: 05/26/24 20:28 Dose: Not Given Documented By: Admin: 05/26/24 17:49 Dose: Not Given Documented By: Admin: 05/26/24 12:32 Dose: Not Given Documented By: Admin: 05/26/24 11:33 Dose: Not Given Documented By: Admin: 05/25/24 20:33 Dose: Not Given Documented By: Admin: 05/25/24 17:01 Dose: 5 units Documented By: CAMRYN Co-signed By: DANIS Admin: 05/25/24 13:12 Dose: 11 units Documented By: PRIYA Co-signed By: DANIS Admin: 05/25/24 09:12 Dose: 19 units Documented By: PRIYA Co-signed By: ELIZABETH Admin: 05/24/24 20:12 Dose: Not Given Documented By: Admin: 05/24/24 17:39 Dose: 16 units Documented By: AUGUSTA Co-signed By: MAK Admin: 05/24/24 12:22 Dose: 21 units Documented By: AUGUSTA Co-signed By: DANIS Admin: 05/24/24 08:48 Dose: 19 units Documented By: AUGUSTA Co-signed By: MAK Insulin Glargine (Lantus Per Unit Charge) 0 units SC BID [facility]; Protocol Stop: 06/24/24 20:59 Last Admin: 05/27/24 09:26 Dose: 25 units Documented By: CHRISTIE Co-signed By: KYLEE Admin: 05/26/24 20:28 Dose: 30 units Documented By: FRANCIS Co-signed By: KARLA Admin: 05/26/24 11:34 Dose: Not Given Documented By: Admin: 05/25/24 20:42 Dose: 25 units Documented By: SIENNA Co-signed By: CASSIE Levofloxacin (Levofloxacin 500 Mg Tab) 500 mg PO [facility] Stop: 06/02/24 20:59 Last Admin: 05/26/24 20:27 Dose: 500 mg Documented By: FRANCIS Levothyroxine Sodium (Levothyroxine Sodium 88 Mcg Tablet) 88 mcg PO DAILYBB [facility] Stop: 06/23/24 06:29 Last Admin: 05/27/24 05:48 Dose: 88 mcg Documented By: Admin: 05/26/24 05:59 Dose: 88 mcg Documented By: Admin: 05/25/24 05:13 Dose: 88 mcg Documented By: Admin: 05/24/24 06:43 Dose: 88 mcg Documented By: ROMINA Lisinopril (Lisinopril 2.5 Mg Tab) 2.5 mg PO QAM [facility] Stop: 06/24/24 08:59 Last Admin: 05/27/24 09:27 Dose: 2.5 mg Documented By: Admin: 05/26/24 11:35 Dose: Not Given Documented By: Admin: 05/25/24 09:26 Dose: 2.5 mg Documented By: PRIYA Loratadine (Loratadine 10 Mg Tab) 10 mg PO DAILY [facility] Stop: 06/24/24 08:59 Last Admin: 05/27/24 09:27 Dose: 10 mg Documented By: Admin: 05/26/24 11:35 Dose: Not Given Documented By: Admin: 05/25/24 09:21 Dose: 10 mg Documented By: PRIYA Metoprolol Succinate (Metoprolol Succ 50mg Ext Rel Tab) 150 mg PO QAM [facility] Stop: 06/25/24 08:59 Last Admin: 05/27/24 09:27 Dose: 150 mg Documented By: Admin: 05/26/24 11:36 Dose: Not Given Documented By: DTT Nystatin (Nystatin Powder 15gm Btl) 1 appln EXT BID [facility] Stop: 06/23/24 00:59 Last Admin: 05/27/24 09:30 Dose: 1 appln Documented By: Admin: 05/26/24 19:34 Dose: 1 appln Documented By: Admin: 05/26/24 11:36 Dose: Not Given Documented By: Admin: 05/25/24 20:43 Dose: 1 appln Documented By: Admin: 05/25/24 09:20 Dose: 1 appln Documented By: Admin: 05/24/24 21:22 Dose: 1 appln Documented By: Admin: 05/24/24 03:16 Dose: 1 appln Documented By: [facility] Pantoprazole Sodium (Pantoprazole 40 Mg Tab) 40 mg PO DAILY [facility] Stop: 06/25/24 08:59 Last Admin: 05/27/24 09:29 Dose: 40 mg Documented By: Admin: 05/26/24 11:36 Dose: Not Given Documented By: DTT Polyethylene Glycol (Polyethylene (Miralax) 17 Gm Pack) 17 gm PO DAILY [facility] Stop: 06/24/24 11:59 Last Admin: 05/27/24 09:25 Dose: 17 gm Documented By: Admin: 05/26/24 11:36 Dose: Not Given Documented By: Admin: 05/25/24 12:52 Dose: 17 gm Documented By: PRIYA Polymyxin/Trimethoprim Sulfate (Trimethoprim/Polymyxin B) 1 drops OPR QID [facility] Stop: 06/26/24 01:19 Last Admin: 05/27/24 16:14 Dose: 1 drops Documented By: Admin: 05/27/24 12:40 Dose: 1 drops Documented By: Admin: 05/27/24 09:28 Dose: 1 drops Documented By: Admin: 05/27/24 02:00 Dose: 1 drops Documented By: FRANCIS Pregabalin (Pregabalin 50 Mg Cap) 50 mg PO TID [facility] Stop: 06/25/24 13:59 Last Admin: 05/27/24 14:09 Dose: 50 mg Documented By: Admin: 05/27/24 09:25 Dose: 50 mg Documented By: Admin: 05/26/24 20:28 Dose: 50 mg Documented By: Admin: 05/26/24 16:31 Dose: 50 mg Documented By: CAMRYN Senna/Docusate Sodium (Docusate Sodium/Senna 50/8.6mg Tab) 1 tab PO BID [facility] Stop: 06/26/24 01:44 Last Admin: 05/27/24 09:25 Dose: 1 tab Documented By: Admin: 05/27/24 01:36 Dose: 1 tab Documented By: FRANCIS Spironolactone (Spironolactone 12.5 Mg Tab) 12.5 mg PO DAILY [facility] Stop: 06/25/24 08:59 Last Admin: 05/27/24 09:27 Dose: 12.5 mg Documented By: Admin: 05/26/24 11:36 Dose: Not Given Documented By: DTT (8) CKD (chronic kidney disease) stage 3, GFR 30-59 ml/min Chronic kidney disease stage 3 subtype: stage 3a (GFR 45-59) Qualified Code(s): N18.31 - Chronic kidney disease, stage 3a
[2024-05-28] MEDS: ONDANSETRON INJ 2 MG/ML 2 ML VIAL IV STA ×2 (05:46→20:09)
--- NOTE | 2024-05-28 07:22 | Electrocardiogram Report ---
Test Reason : Blood Pressure : */* mmHG Vent. 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
[2024-05-28 07:50] LABS: Hematocrit (blood only) 36.7 % (42.0-52.0); Hemoglobin 11.3 g/dl (14.0-18.0); Mean Corpuscular Hemoglobin 26.8 pg (25.0-34.0); Mean Corpuscular Hgb Conc 30.8 g/dL (32.0-36.0); Mean Platelet Volume 9.4 fL (9.4-12.4); Platelet Count 341 K/uL (130-400); RDW Coefficient of Variation 19.9 % (11.5-14.5); RDW Standard Deviation 61.4 fL (36.4-46.3); Red Blood Count 4.22 M/uL (4.70-6.10)
[2024-05-28 08:09] LABS: Albumin Globulin Ratio 0.6 (0.9-2); Albumin Level 2.8 gm/dl (3.4-5.0); BUN Creatinine Ratio 17.9 (10-20); Bilirubin,Total 0.9 mg/dl (0.2-1.0); Calcium 8.7 mg/dl (8.6-10.3); Creatinine Clr Calc Pharmacy 152.1 ml/min; Globulin 4.4 gm/dl (2.5-4.0); Potassium 3.7 mmol/L (3.5-5.1); Total Protein 7.2 gm/dl (6.0-8.3)
[2024-05-28] MEDS: DULoxetine HCL 60 MG CAP PO SCH (08:51)
[2024-05-28] MEDS: SPIRONOLACTONE 25 MG TAB PO SCH (08:53)
[2024-05-28] MEDS: lisinopril 5 MG TAB PO SCH (08:53)
[2024-05-28] MEDS: CARBOHYDRATES FOR HYPOGLYCEMIA PO PRN (11:29)
--- NOTE | 2024-05-28 14:00 | Hospitalist Progress Note ---
Date of Service May 28, 2024 Assessment & Plan (1) Atrial fibrillation with RVR: Plan: -noted RVR on arrival, placed on dilt drip -appears much improved this morning, likely in setting of poor self care at home and medicaion compliance Plan: -continue metoprolol succinate 150 mg daily -continue aldactone, lisinopril, well tolerated -restart warfarin today (2) Chronic systolic heart failure: Plan: -noted on echo, EF slightly decreased to 30-35% -does not appear fluid overloaded at this time Plan: -optimize GDMT -see above -add SGLT 2 inhibitor before discharge (3) Adult failure to thrive: Plan: -patient has had numerous hospitalizations in regards to failure to thrive at home -appears disheveled, found by EMS with pet at door, poor living conditions -high concern given psychiatric concerns and overall condition that patient will be unable to safely return home Plan: -PT/OT ordered -discussed with correctional casework specialist, filled out APS requested forms in regards to disposition -of note, over my past few days patient has showed medical capacity in regards to his medical conditions, but has not exhibited understanding or appreciation of his ability to take care of himself, and is a danger to self living on his own at this time (4) Cellulitis of left lower leg: Plan: -suspect chronic stasis dermatitis with potential superimposed cellulitis -supported by CT femur, personally interpreted Plan: -given hemodynamic stability deescalate to doxy/cipro for 7 day course -dermatology consult outpatient given recurrence (5) 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: Plan: -relatively controlled Plan: -insulin protocol -regular diet given patient very depressed about current diet (6) PVD (peripheral vascular disease): Plan: -noted from prior, s/p left BKA amputation (7) Morbid obesity: Plan: -likely contributer to PVD and recurrent cellulitis (8) CKD (chronic kidney disease) stage 3, GFR 30-59 ml/min: Plan: -creatinine at baseline (9) NINA on CPAP: Plan: -continue CPAP (10) Cardiac defibrillator in situ: Plan: -noted (11) MDD (major depressive disorder), recurrent episode, mild: Plan: -patient has suicideal ideation without a plan, appears passive -patient is quite depressed, feels hopeless Plan: -psych consult, appreciate recs -zyprexa prn for agitation -consult spiritual care, psychology as well (12) Lymphedema: Plan: -likely contributer to cellulitis Plan: -f/u [facility] (13) Chronic pain syndrome: Plan: -checked [employer], 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 Plan: -continue home oxycodone -increase duloxetine to 60 mg -continue pregablin 50 tid for severe neuropathic pain Plan Feeding/fluids: regular Analgesia: tylenol, oxy Sedation: na Thromboprophylaxis: restart warfarin Head up position: na Ulcer prophylaxis: na Glycemic control: insulin protocol Spontaneous breathing trial: na Bowel care: miralax prn Indwelling catheter removal: na Deescalation of antibiotics: deescalated to cipro/doxy I spent a total of 45 minutes in direct patient care, including [id number] time with the patient and/or family, reviewing medical records, ordering and reviewing diagnostic tests, and coordinating care with other healthcare providers. This time includes: history taking, physical examination, medical decision making, counseling, ECG interpretation, imaging interpretation, lab interpretation, orders, and education, excluding time spent in the performance of separately billed services. Admission and Anticipated Discharge Date Admission Date: May 24, 2024 Subjective Patient seen and examined at bedside. We discussed at length his current situation, and how we can best help him moving forward. He is very frustrated by the situation and continues to not show capacity in regards to understanding and appreciating of a lack of ability to take care of himself at home. Pleased with his current pain control. Review of Systems Review of Systems: CONSTITUTIONAL: Patient denies fevers, chills, sweats and weight changes. EYES: Patient denies any visual symptoms. EARS, NOSE, AND THROAT: No difficulties with hearing. No symptoms of rhinitis or sore throat. CARDIOVASCULAR: Patient denies chest pains, palpitations, orthopnea and paroxysmal nocturnal dyspnea. RESPIRATORY: No dyspnea on exertion, no wheezing or cough. GI: stomach ache : No urinary hesitancy or dribbling. No nocturia or urinary frequency. No abnormal urethral discharge. MUSCULOSKELETAL: pain in bilateral LE, left stump erythema, improving NEUROLOGIC: No chronic headaches, no seizures. Patient denies numbness, tingling or weakness. PSYCHIATRIC: depression, anxiety ENDOCRINE: No excessive urination or excessive thirst. DERMATOLOGIC: left stump erythema, improving Physical Exam Physical Exam: Gen: A&O 3 NAD, large body habitus HEENT: NCAT, EOMI, not icteric. External ears normal. No rhinorrhea. Moist mucous membranes. Neck: Supple, full range of motion, no observable masses, No meningeal sign. Lungs: No Respiratory distress. CV: RRR, no edema. Abdomen: Soft, nondistended, No rebound tenderness. MSK: noted erythema on left stump, improved from prior Skin: see above Neuro: Normal Gait, Grossly intact. Psych: depressed affect Results & Data Results & Data Vital Signs (Past 12 Hours) Vital Signs Temp Pulse Resp BP Pulse Ox O2 Del Method 05/28/24 11:35 36.4 C L 65 19 123/80 96 Room Air 05/28/24 09:05 Room Air 05/28/24 08:06 36.5 C 74 20 113/70 96 Room Air 05/28/24 03:26 36.6 C 74 20 135/98 96 Room Air Laboratory Results - Personally reviewed, creatinine continues to be at baseline and hemodynamic stable Medications Administered Acetaminophen (Acetaminophen 500 Mg Tab) 500 mg PO Q6H PRN PRN Reason: fever/pain Stop: 06/23/24 00:56 Last Admin: 05/28/24 08:48 Dose: 500 mg Documented By: Admin: 05/27/24 12:40 Dose: 500 mg Documented By: CHRISTIE(2) Admin: 05/27/24 00:32 Dose: 500 mg Documented By: Admin: 05/26/24 17:02 Dose: 500 mg Documented By: Admin: 05/24/24 13:07 Dose: 500 mg Documented By: Admin: 05/24/24 05:26 Dose: 500 mg Documented By: AMC Aspirin (Aspirin 81 Mg Ectab) 81 mg PO DAILY MATT Stop: 06/23/24 08:59 Last Admin: 05/28/24 08:49 Dose: 81 mg Documented By: Admin: 05/27/24 09:29 Dose: 81 mg Documented By: CHRISTIE(2) Admin: 05/26/24 11:34 Dose: Not Given Documented By: Admin: 05/25/24 09:19 Dose: 81 mg Documented By: Admin: 05/24/24 08:10 Dose: 81 mg Documented By: MES Betamethasone Valerate (Betamethasone Maryann 0.1% Cr 15 Gm) 1 appln TOP TID MATT Stop: 06/23/24 08:59 Last Admin: 05/28/24 08:54 Dose: 1 appln Documented By: Admin: 05/27/24 21:34 Dose: 1 appln Documented By: Admin: 05/27/24 14:04 Dose: 1 appln Documented By: CHRISTIE(2) Admin: 05/27/24 09:30 Dose: 1 appln Documented By: CHRISTIE(2) Admin: 05/26/24 19:34 Dose: 1 appln Documented By: Admin: 05/26/24 16:31 Dose: 1 appln Documented By: Admin: 05/26/24 11:34 Dose: Not Given Documented By: Admin: 05/25/24 20:43 Dose: 1 appln Documented By: Admin: 05/25/24 13:09 Dose: 1 appln Documented By: Admin: 05/25/24 09:20 Dose: 1 appln Documented By: Admin: 05/24/24 21:22 Dose: 1 appln Documented By: KEEsteban Admin: 05/24/24 17:28 Dose: 1 appln Documented By: Admin: 05/24/24 08:11 Dose: 1 appln Documented By: AUGUSTA Doxycycline Hyclate (Doxycycline Hyclate 100 Mg Cap) [address] [facility] Stop: 06/02/24 08:59 Last Admin: 05/28/24 08:50 Dose: 100 mg Documented By: Admin: 05/27/24 21:42 Dose: 100 mg Documented By: Admin: 05/27/24 09:27 Dose: 100 mg Documented By: CHRISTIE(2) Admin: 05/26/24 19:33 Dose: 100 mg Documented By: Admin: 05/26/24 11:34 Dose: Not Given Documented By: DTT Duloxetine HCl (Duloxetine Hcl 60 Mg Cap) 60 mg PO QAM MATT Stop: 06/27/24 08:59 Last Admin: 05/28/24 08:51 Dose: 60 mg Documented By: CHRISTIE Famotidine (Famotidine 10 Mg Tablet) 10 mg PO BID PRN PRN Reason: gerd Stop: 06/24/24 20:59 Last Admin: 05/28/24 08:49 Dose: 10 mg Documented By: Admin: 05/27/24 18:09 Dose: 10 mg Documented By: CHRISTIE(2) Admin: 05/26/24 03:28 Dose: 10 mg Documented By: Admin: 05/25/24 20:43 Dose: 10 mg Documented By: Admin: 05/25/24 12:54 Dose: 10 mg Documented By: CNVince Hydromorphone HCl (Hydromorphone Hcl 2 Mg Tab) 2 mg PO Q4 PRN PRN Reason: Pain Stop: 06/10/24 15:43 Last Admin: 05/28/24 01:42 Dose: 2 mg Documented By: Admin: 05/27/24 21:40 Dose: 2 mg Documented By: Admin: 05/27/24 17:18 Dose: 2 mg Documented By: CHRISTIE(2) Diltiazem HCl 125 mg/ Dextrose 125 mls @ 0 mls/hr IV .Q0M MATT; Protocol Stop: 06/22/24 19:14 Last Titration: 05/26/24 12:26 Dose: Infused Documented By: CAMRYN Co-signed By: KYLEE Titration: 05/24/24 03:08 Dose: 0 mg/hr, 0 mls/hr Documented By: AMC Co-signed By: SERINA Titration: 05/23/24 22:29 Dose: 2.5 mg/hr, 2.5 mls/hr Documented By: CEF Co-signed By: LARISSA Admin: 05/23/24 21:03 Dose: 5 mg/hr, 5 mls/hr Documented By: CEF Co-signed By: LARISSA Promethazine HCl (Phenergan) 12.5 mg in 50.5 mls @ 202 mls/hr IV Q6H PRN PRN Reason: Nausea And Vomiting Stop: 06/23/24 00:56 Last Infusion: 05/28/24 03:04 Dose: Infused Documented By: Admin: 05/28/24 02:29 Dose: 202 mls/hr Documented By: Infusion: 05/26/24 13:50 Dose: Infused Documented By: Admin: 05/26/24 13:05 Dose: 202 mls/hr Documented By: Infusion: 05/25/24 17:50 Dose: Infused Documented By: Admin: 05/25/24 17:29 Dose: 202 mls/hr Documented By: CAMRYN Insulin Aspart (Insulin Aspart Per Unit Charge) 0 units SC ACHS MATT Stop: 06/23/24 07:29 Last Admin: 05/28/24 11:37 Dose: Not Given Documented By: Admin: 05/28/24 08:47 Dose: 14 units Documented By: CHRISTIE Co-signed By: KJS Admin: 05/27/24 21:57 Dose: Not Given Documented By: Admin: 05/27/24 17:18 Dose: 1 units Documented By: CHRISTIE(2) Co-signed By: Admin: 05/27/24 12:36 Dose: 1 units Documented By: CHRISTIE(2) Co-signed By: KJS Admin: 05/27/24 09:26 Dose: 8 units Documented By: CHRISTIE(2) Co-signed By: KJS Admin: 05/26/24 20:28 Dose: Not Given Documented By: Admin: 05/26/24 17:49 Dose: Not Given Documented By: Admin: 05/26/24 12:32 Dose: Not Given Documented By: Admin: 05/26/24 11:33 Dose: Not Given Documented By: Admin: 05/25/24 20:33 Dose: Not Given Documented By: Admin: 05/25/24 17:01 Dose: 5 units Documented By: DTT Co-signed By: DNAIS Admin: 05/25/24 13:12 Dose: 11 units Documented By: PRIYA Co-signed By: DANIS Admin: 05/25/24 09:12 Dose: 19 units Documented By: PRIYA Co-signed By: ELIZABETH Admin: 05/24/24 20:12 Dose: Not Given Documented By: Admin: 05/24/24 17:39 Dose: 16 units Documented By: AUGUSTA Co-signed By: MPC(2) Admin: 05/24/24 12:22 Dose: 21 units Documented By: AUGUSTA Co-signed By: DANIS Admin: 05/24/24 08:48 Dose: 19 units Documented By: AUGUSTA Co-signed By: JENNIFER(2) Insulin Glargine (Lantus Per Unit Charge) 0 units SC BID MATT; Protocol Stop: 06/24/24 20:59 Last Admin: 05/28/24 08:47 Dose: 25 units Documented By: CHRISTIE Co-signed By: KJS Admin: 05/27/24 22:08 Dose: 25 units Documented By: JENNIFER Co-signed By: JOO Admin: 05/27/24 09:26 Dose: 25 units Documented By: ESTHER2) Co-signed By: KYLEE Admin: 05/26/24 20:28 Dose: 30 units Documented By: FRANCIS Co-signed By: KARLA Admin: 05/26/24 11:34 Dose: Not Given Documented By: Admin: 05/25/24 20:42 Dose: 25 units Documented By: SIENNA Co-signed By: CASSIE Levofloxacin (Levofloxacin 500 Mg Tab) 500 mg PO [facility] Stop: 06/02/24 20:59 Last Admin: 05/27/24 21:42 Dose: 500 mg Documented By: Admin: 05/26/24 20:27 Dose: 500 mg Documented By: FRANCIS Levothyroxine Sodium (Levothyroxine Sodium 88 Mcg Tablet) [facility] Stop: 06/23/24 06:29 Last Admin: 05/28/24 05:46 Dose: 88 mcg Documented By: Admin: 05/27/24 05:48 Dose: 88 mcg Documented By: Admin: 05/26/24 05:59 Dose: 88 mcg Documented By: Admin: 05/25/24 05:13 Dose: 88 mcg Documented By: Admin: 05/24/24 06:43 Dose: 88 mcg Documented By: ROMINA Lisinopril (Lisinopril 5 Mg Tab) 5 mg PO [facility] Stop: 06/27/24 08:59 Last Admin: 05/28/24 08:53 Dose: 5 mg Documented By: CHRISTIE Loratadine (Loratadine 10 Mg Tab) 10 mg PO DAILY MATT Stop: 06/24/24 08:59 Last Admin: 05/28/24 08:50 Dose: 10 mg Documented By: Admin: 05/27/24 09:27 Dose: 10 mg Documented By: CHRISTIE(2) Admin: 05/26/24 11:35 Dose: Not Given Documented By: Admin: 05/25/24 09:21 Dose: 10 mg Documented By: CNB Metoprolol Succinate (Metoprolol Succ 50mg Ext Rel Tab) 150 mg PO [facility] Stop: 06/25/24 08:59 Last Admin: 05/28/24 08:49 Dose: 150 mg Documented By: Admin: 05/27/24 09:27 Dose: 150 mg Documented By: CM(2) Admin: 05/26/24 11:36 Dose: Not Given Documented By: DTT Miscellaneous (Carbohydrates For Hypoglycemia ) 15 - 30 gm PO UD PRN PRN Reason: Hypoglycemia Treatment Stop: 06/23/24 03:29 Last Admin: 05/28/24 11:52 Dose: 15 gm Documented By: Admin: 05/28/24 11:29 Dose: 30 gm Documented By: CHRISTIE Nystatin (Nystatin Powder 15gm Btl) 1 appln EXT BID MATT Stop: 06/23/24 00:59 Last Admin: 05/28/24 08:49 Dose: 1 appln Documented By: Admin: 05/27/24 21:34 Dose: 1 appln Documented By: Admin: 05/27/24 09:30 Dose: 1 appln Documented By: CHRISTIE(2) Admin: 05/26/24 19:34 Dose: 1 appln Documented By: Admin: 05/26/24 11:36 Dose: Not Given Documented By: Admin: 05/25/24 20:43 Dose: 1 appln Documented By: Admin: 05/25/24 09:20 Dose: 1 appln Documented By: Admin: 05/24/24 21:22 Dose: 1 appln Documented By: Admin: 05/24/24 03:16 Dose: 1 appln Documented By: SHERI Pantoprazole Sodium (Pantoprazole 40 Mg Tab) 40 mg PO DAILY MATT Stop: 06/25/24 08:59 Last Admin: 05/28/24 08:49 Dose: 40 mg Documented By: Admin: 05/27/24 09:29 Dose: 40 mg Documented By: CHRISTIE(2) Admin: 05/26/24 11:36 Dose: Not Given Documented By: DTT Polyethylene Glycol (Polyethylene (Miralax) 17 Gm Pack) 17 gm PO DAILY MATT Stop: 06/24/24 11:59 Last Admin: 05/28/24 08:48 Dose: 17 gm Documented By: Admin: 05/27/24 09:25 Dose: 17 gm Documented By: CHRISTIE(2) Admin: 05/26/24 11:36 Dose: Not Given Documented By: Admin: 05/25/24 12:52 Dose: 17 gm Documented By: CNB Polymyxin/Trimethoprim Sulfate (Trimethoprim/Polymyxin B) [address] [facility] Stop: 06/26/24 01:19 Last Admin: 05/28/24 08:54 Dose: 1 drops Documented By: Admin: 05/27/24 21:43 Dose: 1 drops Documented By: Admin: 05/27/24 16:14 Dose: 1 drops Documented By: CHRISTIE(2) Admin: 05/27/24 12:40 Dose: 1 drops Documented By: CM(2) Admin: 05/27/24 09:28 Dose: 1 drops Documented By: CHRISTIE(2) Admin: 05/27/24 02:00 Dose: 1 drops Documented By: FRANCIS Pregabalin (Pregabalin 50 Mg Cap) [address] [facility] Stop: 06/25/24 13:59 Last Admin: 05/28/24 08:48 Dose: 50 mg Documented By: Admin: 05/27/24 21:41 Dose: 50 mg Documented By: Admin: 05/27/24 14:09 Dose: 50 mg Documented By: CHRISTIE(2) Admin: 05/27/24 09:25 Dose: 50 mg Documented By: CHRISTIE(2) Admin: 05/26/24 20:28 Dose: 50 mg Documented By: Admin: 05/26/24 16:31 Dose: 50 mg Documented By: CAMRYN Senna/Docusate Sodium (Docusate Sodium/Senna 50/8.6mg Tab) [address] [facility] Stop: 06/26/24 01:44 Last Admin: 05/28/24 09:17 Dose: 1 tab Documented By: Admin: 05/27/24 21:40 Dose: 1 tab Documented By: Admin: 05/27/24 09:25 Dose: 1 tab Documented By: CHRISTIE(2) Admin: 05/27/24 01:36 Dose: 1 tab Documented By: FRANCIS Spironolactone (Spironolactone 25 Mg Tab) [address] [facility] Stop: 06/27/24 08:59 Last Admin: 05/28/24 08:53 Dose: 25 mg Documented By: CHRISTIE (8) CKD (chronic kidney disease) stage 3, GFR 30-59 ml/min Chronic kidney disease stage 3 subtype: stage 3a (GFR 45-59) Qualified Code(s): N18.31 - Chronic kidney disease, stage 3a
--- NOTE | 2024-05-28 14:10 | Pharmacy Report ---
Pharmacy Glycemic Short Note 2 - Date of Service May 28, 2024 - Glycemic Short BSG Results (Last 24 hours): 05/27/24 05/27/24 05/28/24 16:13 21:50 06:22 Glucose 82 POC Glucose 157 H 137 H 05/28/24 05/28/24 05/28/24 07:25 11:25 11:48 Glucose POC Glucose 90 52 L* 66 L* 05/28/24 12:11 Glucose POC Glucose 76 OUTPATIENT ANTIDIABETIC REGIMEN: * Novolog pump * pre-meal target range: 90-150 mg/dL * post-meal target range: <220 mg/dL * Carb ratio: 1:3 g/unit * Correction factor: 1:30 unit/mg/dL * Basal rate: 7 units/hr (5490-2516), 6 units/hr (2078-2782), 7 units/hr (6797-0784) - 155 units/day HbA1c: 7.5% (02/09/24), 8.1% (04/2024 per H&P) ASSESSMENT: 05/28: * Received 60 units of insulin yesterday, 50 of which were basal. BSGs were [phone] mg/dL. * Fasting BSG down to 90 mg/dL this AM. Reduced basal. * Lunchtime hypoglycemia at 52 mg/dL today. Required 45 g of carbs to bring BSG up to 76 mg/dL. Thankfully, patient was asymptomatic during this event. Unsure of reasoning for hypoglycemia but suspect basal overload combined with tight carb ratio. Will loosen carb ratio and hold lunch Novolog. Holding PM basal dose and will reassess tomorrow morning. 05/27: * BSGs have been fairly stable for the past 48 hours. * Pt refused his morning insulin yesterday, so BSGs have been trending up today, but still reasonable. * Pt has requested a regular diet rather than a diabetic diet. * Slight adjustment made to Lantus dosing this morning in an attempt to avoid hypoglycemia and discourage pt refusal of doses. * Pharmacy will continue to follow and adjust regimen as indicated. 05/24: * CG is a 58 year old male who presents to ED s/p mechanical fall out of wheelchair * Patient is well-known to pharmacy glycemic service s/p multiple adm issions/consultations * Reasonably well-controlled T2DM as an outpatient with Novolog insulin pump (fairly large daily insulin doses) * Insulin pump removed prior to admission * Will utilize pump settings and prior inpatient glycemic data to guide initial SC insulin dosing PLAN FOR INPATIENT GLYCEMIC CONTROL: * Hold insulin pump * Basal insulin * Lantus 25 units SC x 1 this AM * No further basal insulin today - reassess tomorrow * Bolus insulin * NovoLog per scale ACHS or Q6hrs while NPO * Goal Range: Low 110 mg/dL - High 150 mg/dL * Correction Factor: 30 mg/dL/unit * Nutritional / Prandial insulin per carb ratio of 1 unit per 5 grams CHO consumed
[2024-05-28] MEDS: WARFARIN SOD 3 MG TAB PO SCH (17:25)
[2024-05-29 07:39] LABS: Hematocrit (blood only) 37.9 % (42.0-52.0); Hemoglobin 11.5 g/dl (14.0-18.0); Mean Corpuscular Hemoglobin 26.7 pg (25.0-34.0); Mean Corpuscular Hgb Conc 30.3 g/dL (32.0-36.0); Mean Corpuscular Volume 88.1 fL (80.0-100.0); Platelet Count 348 K/uL (130-400); RDW Coefficient of Variation 19.9 % (11.5-14.5); White Blood Count 5.14 K/ul (4.8-10.8)
[2024-05-29 07:55] LABS: BUN Creatinine Ratio 19.7 (10-20); Calcium 8.7 mg/dl (8.6-10.3); Creatinine Clr Calc Pharmacy 156.4 ml/min; Potassium 3.9 mmol/L (3.5-5.1)
[2024-05-29 08:17] LABS: Prothrombin Time 29.3 Seconds (9.0-12.0)
--- NOTE | 2024-05-29 10:33 | XRay Report ---
EXAM: Radiograph of the Abdomen 1 View INDICATION: Constipation. TECHNIQUE: Frontal supine view of the abdomen/pelvis. COMPARISON: 05/26/2024 CT FINDINGS: Limitations: None. Gastrointestinal tract: Large amounts of stool in portions of the right and left markedly redundant colon noted. There is stable prominent small and large bowel aeration. Organs: Visualized organ shadows appear grossly normal. Bones/joints: Degenerative changes noted throughout the spine. No acute osseous abnormality seen. Soft tissues: No abnormality noted. No radiopaque foreign body noted. IMPRESSION: Stable large amounts of stool in the right and left colon. Stable generalized ileus. ACT 112: Negative or not required by law. Electronically signed by Lauren Carmichael 05-29-2024 10:32 AM
[2024-05-29] MEDS ORDERED: bisacodyL 10 MG SUPP PR SCH (11:15)
[2024-05-29] MEDS ORDERED: LANTUS PER UNIT CHARGE SC STA (11:33)
[2024-05-29] MEDS: ONDANSETRON INJ 2 MG/ML 2 ML VIAL IV PRN (12:00)
[2024-05-29] MEDS: DICYCLOMINE HCL 10 MG CAP PO SCH (12:03)
--- NOTE | 2024-05-29 12:13 | Pharmacy Report ---
Pharmacy Glycemic Short Note 2 - Date of Service May 29, 2024 - Glycemic Short BSG Results (Last 24 hours): 05/28/24 05/28/24 05/28/24 12:11 16:28 18:28 Glucose POC Glucose 76 111 H 99 05/28/24 05/29/24 19:48 07:05 Glucose 108 H POC Glucose 104 H OUTPATIENT ANTIDIABETIC REGIMEN: * Novolog pump * pre-meal target range: 90-150 mg/dL * post-meal target range: <220 mg/dL * Carb ratio: 1:3 g/unit * Correction factor: 1:30 unit/mg/dL * Basal rate: 7 units/hr (9803-6839), 6 units/hr (8282-8130), 7 units/hr (3893-6344) - 155 units/day HbA1c: 7.5% (02/09/24), 8.1% (04/2024 per H&P) ASSESSMENT: 05/29: * Received 25 units of basal yesterday and 14 more units of bolus. BSGs were [phone] mg/dL. * Patient continues to not eat today per RN. BSGs 108 and 104 mg/dL. Will hold basal until patient eating again. Considered low dose basal just so some is on board but RN concerned given hypoglycemia yesterday. * No changes to Novolog. 05/28: * Received 60 units of insulin yesterday, 50 of which were basal. BSGs were [phone] mg/dL. * Fasting BSG down to 90 mg/dL this AM. Reduced basal. * Lunchtime hypoglycemia at 52 mg/dL today. Required 45 g of carbs to bring BSG up to 76 mg/dL. Thankfully, patient was asymptomatic during this event. Unsure of reasoning for hypoglycemia but suspect basal overload combined with tight carb ratio. Will loosen carb ratio and hold lunch Novolog. Holding PM basal dose and will reassess tomorrow morning. 05/27: * BSGs have been fairly stable for the past 48 hours. * Pt refused his morning insulin yesterday, so BSGs have been trending up today, but still reasonable. * Pt has requested a regular diet rather than a diabetic diet. * Slight adjustment made to Lantus dosing this morning in an attempt to avoid hypoglycemia and discourage pt refusal of doses. * Pharmacy will continue to follow and adjust regimen as indicated. 05/24: * CG is a 58 year old male who presents to ED s/p mechanical fall out of wheelchair * Patient is well-known to pharmacy glycemic service s/p multiple admissions/consultations * Reasonably well-controlled T2DM as an outpatient with Novolog insulin pump (fairly large daily insulin doses) * Insulin pump removed prior to admission * Will utilize pump settings and prior inpatient glycemic data to guide initial SC insulin dosing PLAN FOR INPATIENT GLYCEMIC CONTROL: * Hold insulin pump * Basal insulin * Hold basal until patient eating again * Bolus insulin * NovoLog per scale ACHS or Q6hrs while NPO * Goal Range: Low 110 mg/dL - High 150 mg/dL * Correction Factor: 30 mg/dL/unit * Nutritional / Prandial insulin per carb ratio of 1 unit per 5 grams CHO consumed
--- NOTE | 2024-05-29 12:59 | Hospitalist Progress Note ---
Date of Service May 29, 2024 Assessment & Plan (1) Atrial fibrillation with RVR: Plan: -noted RVR on arrival, placed on dilt drip -appears much improved this morning, likely in setting of poor self care at home and medicaion compliance Plan: -continue metoprolol succinate 150 mg daily -continue aldactone, lisinopril, well tolerated -continue warfarin today (2) Chronic systolic heart failure: Plan: -noted on echo, EF slightly decreased to 30-35% -does not appear fluid overloaded at this time Plan: -optimize GDMT -see above -add SGLT 2 inhibitor before discharge (3) Ileus: Plan: -minimal tenderness to palpation, still moving bowels per patient -per patient last BM yesterday, KUB shows generalized constipation, appears unchanged to prior imaging -no evidence of transition point or SBO at this time Plan: -miralax, senna, suppository today -NS fluids for now -minimize PO intake, patients wants diet for now (4) Adult failure to thrive: Plan: -patient has had numerous hospitalizations in regards to failure to thrive at home -appears disheveled, found by EMS with pet at door, poor living conditions -high concern given psychiatric concerns and overall condition that patient will be unable to safely return home Plan: -PT/OT ordered -discussed with case manager specialist, filled out APS requested forms in regards to disposition -of note, over my past few days patient has showed medical capacity in regards to his medical conditions, but has not exhibited understanding or appreciation of his ability to take care of himself, and is a danger to self living on his own at this time (5) Cellulitis of left lower leg: Plan: -suspect chronic stasis dermatitis with potential superimposed cellulitis -supported by CT femur, personally interpreted Plan: -given hemodynamic stability deescalate to doxy/cipro for 7 day course -dermatology consult outpatient given recurrence (6) 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: Plan: -relatively controlled Plan: -insulin protocol -regular diet (7) PVD (peripheral vascular disease): Plan: -noted from prior, s/p left BKA amputation (8) Morbid obesity: Plan: -likely contributer to PVD and recurrent cellulitis (9) CKD (chronic kidney disease) stage 3, GFR 30-59 ml/min: Plan: -creatinine at baseline (10) NINA on CPAP: Plan: -continue CPAP (11) Cardiac defibrillator in situ: Plan: -noted (12) MDD (major depressive disorder), recurrent episode, mild: Plan: -patient has suicideal ideation without a plan, appears passive -patient is quite depressed, feels hopeless Plan: -psych consult, appreciate recs -zyprexa prn for agitation -consult spiritual care, psychology as well (13) Lymphedema: Plan: -likely contributer to cellulitis Plan: -f/u with [facility] outpatient (14) Chronic pain syndrome: Plan: -checked [employer], 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 Plan: -continue home oxycodone -continue duloxetine 60 mg -continue pregablin 50 tid for severe neuropathic pain Plan Feeding/fluids: regular Analgesia: tylenol, dilaudid Sedation: na Thromboprophylaxis: warfarin Head up position: na Ulcer prophylaxis: na Glycemic control: insulin protocol Spontaneous breathing trial: na Bowel care: miralax prn Indwelling catheter removal: na Deescalation of antibiotics: cipro/doxy I spent a total of 50 minutes in direct patient care, including [id number] time with the patient and/or family, reviewing medical records, ordering and reviewing diagnostic tests, and coordinating care with other healthcare providers. This time includes: history taking, physical examination, medical decision making, counseling, ECG interpretation, imaging interpretation, lab interpretation, orders, and education, excluding time spent in the performance of separately billed services. Admission and Anticipated Discharge Date Admission Date: May 24, 2024 Subjective Patient seen and examined at bedside. Mr. Lyle is frustrated today. He states he is having abdominal pain. Otherwise, he states the dilaudid helps with the pain. Review of Systems Review of Systems: CONSTITUTIONAL: Patient denies fevers, chills, sweats and weight changes. EYES: Patient denies any visual symptoms. EARS, NOSE, AND THROAT: No difficulties with hearing. No symptoms of rhinitis or sore throat. CARDIOVASCULAR: Patient denies chest pains, palpitations, orthopnea and paroxysmal nocturnal dyspnea. RESPIRATORY: No dyspnea on exertion, no wheezing or cough. GI: some abdominal pain diffusely : No urinary hesitancy or dribbling. No nocturia or urinary frequency. No abnormal urethral discharge. MUSCULOSKELETAL: pain in bilateral LE, left stump erythema, improving NEUROLOGIC: No chronic headaches, no seizures. Patient denies numbness, tingling or weakness. PSYCHIATRIC: depression, anxiety ENDOCRINE: No excessive urination or excessive thirst. DERMATOLOGIC: left stump erythema, improving Physical Exam Physical Exam: Gen: A&O 3 NAD, large body habitus HEENT: NCAT, EOMI, not icteric. External ears normal. No rhinorrhea. Moist mucous membranes. Neck: Supple, full range of motion, no observable masses, No meningeal sign. Lungs: No Respiratory distress. CV: RRR, no edema. Abdomen: slight distension, minimal tenderness to palpation MSK: noted erythema on left stump, improved from prior Skin: see above Neuro: Normal Gait, Grossly intact. Psych: depressed affect Results & Data Results & Data Vital Signs (Past 12 Hours) Vital Signs Temp Pulse Resp BP Pulse Ox O2 Del Method 05/29/24 11:13 36.5 C 71 16 115/72 94 Room Air 05/29/24 07:38 36.6 C 74 16 124/76 94 Room Air 05/29/24 03:41 37.4 C 72 20 132/74 95 Room Air Laboratory Results -personally reviewed, stable hemodynamics and creatinine Medications Administered Laboratory Results WBC 5.14 K/ul (4.8-10.8) 05/29/24 07:05 RBC 4.30 M/uL (4.70-6.10) L 05/29/24 07:05 Hgb 11.5 g/dl (14.0-18.0) L 05/29/24 07:05 POC Hgb 11.2 g/dl (14.0-18.0) L 05/23/24 18:52 Hct 37.9 % (42.0-52.0) L 05/29/24 07:05 POC Hct 33 % (42-52) L 05/23/24 18:52 MCV 88.1 fL (80.0-100.0) 05/29/24 07:05 MCH 26.7 pg (25.0-34.0) 05/29/24 07:05 MCHC 30.3 g/dL (32.0-36.0) L 05/29/24 07:05 RDW Std Deviation 63.0 fL (36.4-46.3) H 05/29/24 07:05 RDW Coeff of Мария 19.9 % (11.5-14.5) H 05/29/24 07:05 Plt Count 348 K/uL (130-400) 05/29/24 07:05 MPV 9.0 fL (9.4-12.4) L 05/29/24 07:05 Immature Gran % (Auto) 0.5 % 05/25/24 05:47 Neut % (Auto) 64.7 % 05/25/24 05:47 Lymph % (Auto) 13.2 % 05/25/24 05:47 [place] % (Auto) 11.4 % 05/25/24 05:47 Eos % (Auto) 8.6 % 05/25/24 05:47 Baso % (Auto) 1.6 % 05/25/24 05:47 Neut # (Auto) 2.85 K/uL (1.40-6.50) 05/25/24 05:47 Lymph # (Auto) 0.58 K/uL (1.20-3.40) L 05/25/24 05:47 [place] # (Auto) 0.50 K/uL (0.11-0.59) 05/25/24 05:47 Eos # (Auto) 0.38 K/uL (0.00-0.50) 05/25/24 05:47 Baso # (Auto) 0.07 K/uL (0.00-0.20) 05/25/24 05:47 Immature Gran # (Auto) 0.02 K/uL (0.01-0.20) 05/25/24 05:47 ESR > 130 mm/hr (0-20) H 05/23/24 18:44 PT 29.3 Seconds (9.0-12.0) H 05/29/24 07:05 INR 3.0 (0.9-1.1) H 05/29/24 07:05 APTT 42 Seconds (21-31) H 05/23/24 20:43 PTT Ratio 1.6 05/23/24 20:43 POC Sodium 139 mmol/L (135-144) 05/23/24 18:52 Sodium 140 mmol/L (136-145) 05/29/24 07:05 POC Potassium 4.2 mmol/L (3.3-5.0) 05/23/24 18:52 Potassium 3.9 mmol/L (3.5-5.1) 05/29/24 07:05 POC Chloride 101 mmol/L (101-112) 05/23/24 18:52 Chloride 108 mmol/L (98-107) H 05/29/24 07:05 Carbon Dioxide 28 mmol/L (21-32) 05/29/24 07:05 POC Total CO2 27 mmol/L (24-31) 05/23/24 18:52 Anion Gap 4 (3-11) 05/29/24 07:05 POC Anion Gap 16.0 mmol/L (16-25) 05/23/24 18:52 POC BUN 31 mg/dl (7-18) H 05/23/24 18:52 BUN 15 mg/dl (6-23) 05/29/24 07:05 Creatinine 0.76 mg/dl (0.6-1.4) 05/29/24 07:05 POC Creatinine 2.0 mg/dl (0.6-1.3) H 05/23/24 18:52 Est Cr Clr Drug Dosing 156.4 ml/min 05/29/24 07:05 eGFR 102.90 05/29/24 07:05 BUN/Creatinine Ratio 19.7 (10-20) 05/29/24 07:05 Glucose 108 mg/dl (70-99(Fasting)) H 05/29/24 07:05 POC Glucose 104 mg/dl (70-99) H 05/28/24 19:48 POC Glucose (other) 108 mg/dl (70-99) H 05/23/24 18:52 Estimat Average Glucose 140 mg/dl 05/25/24 05:47 Hemoglobin A1c 6.5 % (4.5-5.6) H 05/25/24 05:47 Lactate 1.8 mmol/L (0.4-2.0) 05/23/24 19:53 Calcium 8.7 mg/dl (8.6-10.3) 05/29/24 07:05 POC Ioniz Calcium [place] 1.00 mmol/l (1.12-1.32) L 05/23/24 18:52 Phosphorus 3.5 mg/dl (2.5-4.9) 05/25/24 05:47 Magnesium 2.2 mg/dl (1.7-2.4) 05/25/24 05:47 Total Bilirubin 0.9 mg/dl (0.2-1.0) 05/28/24 06:22 Direct Bilirubin 0.8 mg/dl (0-0.2) H 05/23/24 18:44 AST 17 U/L (13-39) 05/28/24 06:22 ALT 4 U/L (7-52) L 05/28/24 06:22 Alkaline Phosphatase 72 U/L (34-104) 05/28/24 06:22 Total Creatine Kinase 67 U/L (30-223) 05/24/24 05:54 Troponin I High Sens 13.0 pg/ml (0-20) 05/23/24 18:44 C-Reactive Protein 11.86 mg/dl (0-0.5) H 05/23/24 18:44 B-Natriuretic Peptide 110 pg/ml (0-100) H 05/23/24 18:44 Total Protein 7.2 gm/dl (6.0-8.3) 05/28/24 06:22 Albumin 2.8 gm/dl (3.4-5.0) L 05/28/24 06:22 Globulin 4.4 gm/dl (2.5-4.0) H 05/28/24 06:22 Albumin/Globulin Ratio 0.6 (0.9-2) L 05/28/24 06:22 Triglycerides 98 mg/dl (0-150) 05/25/24 05:47 Cholesterol 49 mg/dl (0-200) 05/25/24 05:47 LDL Cholesterol, Calc 19 mg/dl 05/25/24 05:47 VLDL Cholesterol, Calc 20 mg/dl (0-30) 05/25/24 05:47 HDL Cholesterol 10 mg/dl 05/25/24 05:47 Cholesterol/HDL Ratio 4.9 (0-5) 05/25/24 05:47 Procalcitonin 0.67 ng/ml (0-0.5) H 05/23/24 18:44 TSH 6.188 uIu/ml (0.300-4.500) H 05/23/24 18:44 Free T4 1.26 ng/dl (0.61-1.60) 05/23/24 18:44 Urine Color Dark Yellow 05/24/24 01:55 Urine Appearance Clear (Clear) 05/24/24 01:55 Urine pH 5.0 (4.5-7.5) 05/24/24 01:55 Ur Specific [place] 1.016 (1.000-1.030) 05/24/24 01:55 Urine Protein 2+ (Negative) H 05/24/24 01:55 Urine Glucose (UA) 1+ (Negative) H 05/24/24 01:55 Urine Ketones Trace (Negative) H 05/24/24 01:55 Urine Blood Negative (Negative) 05/24/24 01:55 Urine Nitrite Negative (Negative) 05/24/24 01:55 Urine Bilirubin 1+ (Negative) H 05/24/24 01:55 Urine Urobilinogen Negative (Negative) 05/24/24 01:55 Ur Leukocyte Esterase Negative (Negative) 05/24/24 01:55 Urine WBC (Auto) 0-5 /hpf (0-5) 05/24/24 01:55 Urine RBC (Auto) 0-2 /hpf (0-2) 05/24/24 01:55 U Hyaline Cast (Auto) 11-20 /lpf (0-2) H 05/24/24 01:55 U Epithel Cells (Auto) 0-2 /hpf (0-2) 05/24/24 01:55 Urine Bacteria (Auto) None Seen (None Seen) 05/24/24 01:55 Urine Mucus Present (None Prsent) A 05/24/24 01:[address] 05/23/24 19:12 Exam(s): CT C SPINE EXAM: CT Cervical Spine Without Intravenous Contrast CLINICAL HISTORY: Reason for exam: fall on blood thinner. TECHNIQUE: Axial computed tomography images of the cervical spine without intravenous contrast. CTDI is 25.21 mGy and DLP is 558.08 mGy-cm. Automated exposure control was utilized for the study. A dose lowering technique was utilized adhering to the principles of ALARA. COMPARISON: No relevant prior studies available. FINDINGS: Vertebrae: Mild narrowing and osteophytosis at the atlantodental joint. No acute fracture. Soft tissues: Unremarkable. Vasculature: Mild calcification of the carotid bifurcation bilaterally. DISCS/SPINAL CANAL/NEURAL FORAMINA: C2-C3: Degenerative fusion of the C2-3 level. No stenosis. C3-C4: Mild degenerative disc disease. No stenosis. C4-C5: Mild degenerative disc disease. No stenosis. C5-C6: Degenerative fusion of the C5-6 level. Posterior osteophyte causes mild spinal stenosis measuring 9 mm. C6-C7: Mild degenerative disc disease. No stenosis. C7-T1: Mild degenerative disc disease. No stenosis. IMPRESSION: Mild to moderate multilevel degenerative disc disease and facet arthrosis throughout the cervical spine. There is straightening of the normal cervical curvature suggesting spasm. No acute fracture or subluxation is seen. Electronically signed by: Bruno Payne MD 05/23/24 21:02 PM Chest X-Ray 05/23/24 19:12 Exam(s): XR CXR 1 VIEW EXAM: XR Chest, 1 View CLINICAL HISTORY: Reason for exam: Sepsis. TECHNIQUE: Frontal view of the chest. COMPARISON: February 18, 2024 FINDINGS: Lungs: Central vascular congestion. Possible mild edema. No focal consolidation is seen. Pleural space: Unremarkable. No pneumothorax. Heart: Unremarkable. No cardiomegaly. Mediastinum: Unremarkable. Normal mediastinal contour. 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 No acute fracture. Tubes, lines and devices: There is a pacemaker on the left with leads going to the right side of the heart. The cardiac silhouette is mildly enlarged. Upper abdomen: There is no pneumoperitoneum under the diaphragm. IMPRESSION: 1. There is a pacemaker on the left with leads going to the right side of the heart. The cardiac silhouette is mildly enlarged. 2. Central vascular congestion. Possible mild edema. No focal consolidation is seen. Electronically signed by: Bruno Payne MD 05/23/24 20:[address] 05/23/24 19:12 Exam(s): CT HEAD Without Contrast EXAM: CT Head Without Intravenous Contrast CLINICAL HISTORY: Reason for exam: fall on warfarin. TECHNIQUE: Axial computed tomography images of the head/brain without intravenous contrast. CTDI is 38.49 mGy and DLP is 624.41 mGy-cm. Automated exposure control was utilized for the study. A dose lowering technique was utilized adhering to the principles of ALARA. COMPARISON: No relevant prior studies available. FINDINGS: Brain: Unremarkable. No hemorrhage. No significant white matter disease. No edema. Ventricles: Unremarkable. No ventriculomegaly. Bones/joints: Unremarkable. No acute fracture. Soft tissues: Unremarkable. Sinuses: Signs of previous sinus surgery involving the ethmoid air cells. No mucosal thickening or gas/fluid levels are seen. Mastoid air cells: Unremarkable as visualized. No mastoid effusion. IMPRESSION: Unremarkable appearance of the brain. No intracranial hemorrhage or infarct is identified. No acute traumatic findings are seen. Electronically signed by: Bruno Payne MD 05/23/24 20:[address] 05/24/24 00:49 EXAM: CT femur LT wo con CLINICAL HISTORY: Pain/swelling, coumadin. TECHNIQUE: Thin axial images of the left femur were obtained along with coronal and sagittal reconstructions without contrast. One of the following dose-reduction techniques was utilized for this exam. Automated exposure control, adjustment of the mA and/or kV according to patient size, and use of iterative reconstruction. DLP: 1586.5 mGy-cm, CTDI: 27.4 mGy. COMPARISON: None. FINDINGS: The visualized bones appear normal. Soft tissue thickening of the visualized leg with subcutaneous fat stranding. Multiple enthesophytes are noted. Well-corticated calcification is noted adjacent to the anterior acetabulum, which could be enthesophyte. Small lytic calcifications at the anterior aspect of the femoral head and neck, could represent synovial pits. Vascular calcifications are noted. Narrowing of the hip joint space with subchondral sclerosis and marginal osteophytes. IMPRESSION: 1. Multiple enthesophytes. 2. Diffuse soft tissue edema and fat stranding of the visualized left lower limb. 3. Linear calcification noted adjacent to the anterior acetabulum, could represent enthesophyte. Clinical correlation is advised to assess for an indeterminate age avulsion fracture. 4. Otherwise, No acute displaced fractures or dislocations. Electronically signed by Chelsea Ayers 05-24-2024 03:20 AM Abdomen/Pelvis CT 05/26/24 22:35 Exam(s): CT ABDOMEN + PELVIS Without Contrast EXAM: CT Abdomen and Pelvis Without Intravenous Contrast CLINICAL HISTORY: Reason for exam: abd pain, coumadin. TECHNIQUE: Axial computed tomography images of the abdomen and pelvis without intravenous contrast. CTDI is 28.14 mGy and DLP is 1513.9 mGy-cm. Automated exposure control was utilized for the study. A dose lowering technique was utilized adhering to the principles of ALARA. COMPARISON: CT abdomen/pelvis on 05/26/2023 FINDINGS: Lung bases: Dependent and basilar atelectasis. Pleural space: Small right and trace left pleural effusions. ABDOMEN: Liver: Unremarkable. Gallbladder and bile ducts: Cholelithiasis. No ductal dilation. Pancreas: Atrophy of the pancreas. No ductal dilation. Spleen: Mild splenomegaly. Adrenals: Unremarkable. No mass. Kidneys and ureters: Nonspecific bilateral perinephric fat stranding. No hydronephrosis or stone. Stomach and bowel: Large amount of stool in the colon. No small bowel obstruction. No mucosal thickening. PELVIS: Appendix: Normal appendix. Bladder: Underdistended bladder limits evaluation. No stones. Reproductive: Unremarkable as visualized. Subperitoneal space: Small amount of presacral fluid. ABDOMEN and PELVIS: Intraperitoneal space: Trace ascites. No free air. Bones/joints: Degenerative changes of the spine. No acute fracture. No dislocation. Soft tissues: Body wall edema. Vasculature: Atherosclerotic changes of the vasculature. No abdominal aortic aneurysm. Lymph nodes: Unremarkable. No enlarged lymph nodes. IMPRESSION: 1. Large amount of stool in the colon. No small bowel obstruction. 2. Small right and trace left pleural effusions. 3. Cholelithiasis. Electronically signed by: Kemar Mcpherson M.D. 05/27/24 00:05 AM KUB X-Ray 05/29/24 08:33 EXAM: Radiograph of the Abdomen 1 View INDICATION: Constipation. TECHNIQUE: Frontal supine view of the abdomen/pelvis. COMPARISON: 05/26/2024 CT FINDINGS: Limitations: None. Gastrointestinal tract: Large amounts of stool in portions of the right and left markedly redundant colon noted. There is stable prominent small and large bowel aeration. Organs: Visualized organ shadows appear grossly normal. Bones/joints: Degenerative changes noted throughout the spine. No acute osseous abnormality seen. Soft tissues: No abnormality noted. No radiopaque foreign body noted. IMPRESSION: Stable large amounts of stool in the right and left colon. Stable generalized ileus. ACT 112: Negative or not required by law. Electronically signed by Lauren Carmichale 05-29-2024 10:32 AM (9) CKD (chronic kidney disease) stage 3, GFR 30-59 ml/min Chronic kidney disease stage 3 subtype: stage 3a (GFR 45-59) Qualified Code(s): N18.31 - Chronic kidney disease, stage 3a
[2024-05-29] MEDS: SODIUM CHLORIDE 0.9% 1,000 ML IV SCH (14:18)
[2024-05-29] MEDS: PREGABALIN 75 MG CAP PO SCH (20:48)
[2024-05-30] MEDS: DICYCLOMINE HCL 10 MG CAP PO ONE (06:14)
[2024-05-30 06:29] LABS: Hematocrit (blood only) 37.4 % (42.0-52.0); Hemoglobin 11.3 g/dl (14.0-18.0); Mean Corpuscular Hemoglobin 26.6 pg (25.0-34.0); Mean Corpuscular Hgb Conc 30.2 g/dL (32.0-36.0); Mean Platelet Volume 9.2 fL (9.4-12.4); Platelet Count 347 K/uL (130-400); RDW Coefficient of Variation 19.7 % (11.5-14.5); RDW Standard Deviation 62.4 fL (36.4-46.3); Red Blood Count 4.25 M/uL (4.70-6.10); White Blood Count 6.11 K/ul (4.8-10.8)
[2024-05-30 06:34] LABS: BUN Creatinine Ratio 17.8 (10-20); Calcium 8.5 mg/dl (8.6-10.3); Creatinine Clr Calc Pharmacy 168.4 ml/min
[2024-05-30 07:04] LABS: INR 3.3 (0.9-1.1); Prothrombin Time 32.1 Seconds (9.0-12.0)
[2024-05-30] MEDS: POLYETHYLENE (MIRALAX) 17 GM PACK PO SCH ×2 (09:50→20:31)
--- NOTE | 2024-05-30 13:39 | Hospitalist Progress Note ---
Date of Service May 30, 2024 Assessment & Plan (1) Atrial fibrillation with RVR: Plan: -noted RVR on arrival, placed on dilt drip -appears much improved this morning, likely in setting of poor self care at home and medicaion compliance Plan: -continue metoprolol succinate 150 mg daily -continue aldactone, lisinopril, well tolerated -continue warfarin today (2) Chronic systolic heart failure: Plan: -noted on echo, EF slightly decreased to 30-35% -does not appear fluid overloaded at this time Plan: -optimize GDMT -see above -add SGLT 2 inhibitor before discharge (3) Ileus: Plan: -minimal tenderness to palpation, still moving bowels per patient -per patient last BM yesterday, KUB shows generalized constipation, appears unchanged to prior imaging -no evidence of transition point or SBO at this time Plan: -miralax, senna, suppository again today -minimize PO intake, patients insists on eating for now -check CT abdomen/pelvis with contrast given persistent abdominal pain, r/o SBO although passing gas and stool with minimal pain (4) Adult failure to thrive: Plan: -patient has had numerous hospitalizations in regards to failure to thrive at home -appears disheveled, found by EMS with pet at door, poor living conditions -high concern given psychiatric concerns and overall condition that patient will be unable to safely return home Plan: -PT/OT ordered -discussed with case resource manager, filled out APS requested forms in regards to disposition -of note, over my past few days patient has showed medical capacity in regards to his medical conditions, but has not exhibited understanding or appreciation of his ability to take care of himself, and is a danger to self living on his own at this time (5) Cellulitis of left lower leg: Plan: -suspect chronic stasis dermatitis with potential superimposed cellulitis -supported by CT femur, personally interpreted Plan: -given hemodynamic stability deescalate to doxy/cipro for 7 day course -dermatology consult outpatient given recurrence (6) 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: Plan: -relatively controlled Plan: -insulin protocol -regular diet (7) PVD (peripheral vascular disease): Plan: -noted from prior, s/p left BKA amputation (8) Morbid obesity: Plan: -likely contributer to PVD and recurrent cellulitis (9) CKD (chronic kidney disease) stage 3, GFR 30-59 ml/min: Plan: -creatinine at baseline (10) NINA on CPAP: Plan: -continue CPAP (11) Cardiac defibrillator in situ: Plan: -noted (12) MDD (major depressive disorder), recurrent episode, mild: Plan: -patient has suicideal ideation without a plan, appears passive -patient is quite depressed, feels hopeless Plan: -psych consult, appreciate recs -zyprexa prn for agitation -consult spiritual care, psychology as well (13) Lymphedema: Plan: -likely contributer to cellulitis Plan: -f/u with [facility] outpatient (14) Chronic pain syndrome: Plan: -checked [employer], 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 Plan: -continue home oxycodone -continue duloxetine 60 mg -continue pregablin 50 tid for severe neuropathic pain Plan Feeding/fluids: regular Analgesia: tylenol, dilaudid Sedation: na Thromboprophylaxis: warfarin Head up position: na Ulcer prophylaxis: na Glycemic control: insulin protocol Spontaneous breathing trial: na Bowel care: miralax prn Indwelling catheter removal: na Deescalation of antibiotics: finish course of abx today I spent a total of 50 minutes in direct patient care, including [id number] time with the patient and/or family, reviewing medical records, ordering and reviewing diagnostic tests, and coordinating care with other healthcare providers. This time includes: history taking, physical examination, medical decision making, counseling, ECG interpretation, imaging interpretation, lab interpretation, orders, and education, excluding time spent in the performance of separately billed services. Admission and Anticipated Discharge Date Admission Date: May 24, 2024 Subjective Patient is doing well today. Patient seen and examined at bedside. Feels he is doing well today. Has no concerns. However, is telling nursing staff he is having significant abdominal pain. Reports having medium bowel movement yest erday but KUB suggestive of stable constipation. Review of Systems Review of Systems: CONSTITUTIONAL: Patient denies fevers, chills, sweats and weight changes. EYES: Patient denies any visual symptoms. EARS, NOSE, AND THROAT: No difficulties with hearing. No symptoms of rhinitis or sore throat. CARDIOVASCULAR: Patient denies chest pains, palpitations, orthopnea and paroxysmal nocturnal dyspnea. RESPIRATORY: No dyspnea on exertion, no wheezing or cough. GI: some abdominal pain diffusely : No urinary hesitancy or dribbling. No nocturia or urinary frequency. No abnormal urethral discharge. MUSCULOSKELETAL: pain in bilateral LE, left stump erythema, improving NEUROLOGIC: No chronic headaches, no seizures. Patient denies numbness, tingling or weakness. PSYCHIATRIC: depression, anxiety ENDOCRINE: No excessive urination or excessive thirst. DERMATOLOGIC: left stump erythema, improving Physical Exam Physical Exam: Gen: A&O 3 NAD, large body habitus HEENT: NCAT, EOMI, not icteric. External ears normal. No rhinorrhea. Moist mucous membranes. Neck: Supple, full range of motion, no observable masses, No meningeal sign. Lungs: No Respiratory distress. CV: RRR, no edema. Abdomen: slight distension, minimal tenderness to palpation MSK: noted erythema on left stump, improved from prior Skin: see above Neuro: Normal Gait, Grossly intact. Psych: depressed affect Results & Data Results & Data Vital Signs (Past 12 Hours) Vital Signs Temp Pulse Resp BP Pulse Ox O2 Del Method 05/30/24 11:39 36.4 C L 70 16 131/73 96 Room Air 05/30/24 07:31 36.5 C 72 16 111/56 L 95 Room Air 05/30/24 02:59 36.5 C 65 18 126/73 98 Room Air Laboratory Results - Personally interpreted, patient continues to have stable creatinine and hemoglobin, KUB shows stable constipation with possible stable ileus with no evidence of SBO Medications Administered Acetaminophen (Acetaminophen 500 Mg Tab) 500 mg PO Q6H PRN PRN Reason: fever/pain Stop: 06/23/24 00:56 Last Admin: 05/29/24 23:48 Dose: 500 mg Documented By: Admin: 05/29/24 08:05 Dose: 500 mg Documented By: Admin: 05/28/24 20:09 Dose: 500 mg Documented By: Admin: 05/28/24 14:33 Dose: 500 mg Documented By: Admin: 05/28/24 08:48 Dose: 500 mg Documented By: Admin: 05/27/24 12:40 Dose: 500 mg Documented By: CHRISTIE(2) Admin: 05/27/24 00:32 Dose: 500 mg Documented By: Admin: 05/26/24 17:02 Dose: 500 mg Documented By: Admin: 05/24/24 13:07 Dose: 500 mg Documented By: Admin: 05/24/24 05:26 Dose: 500 mg Documented By: AMC Aspirin (Aspirin 81 Mg Ectab) 81 mg PO DAILY [facility] Stop: 06/23/24 08:59 Last Admin: 05/30/24 09:50 Dose: 81 mg Documented By: Admin: 05/29/24 08:06 Dose: 81 mg Documented By: Admin: 05/28/24 08:49 Dose: 81 mg Documented By: Admin: 05/27/24 09:29 Dose: 81 mg Documented By: CM(2) Admin: 05/26/24 11:34 Dose: Not Given Documented By: Admin: 05/25/24 09:19 Dose: 81 mg Documented By: Admin: 05/24/24 08:10 Dose: 81 mg Documented By: AUGUSTA Betamethasone Valerate (Betamethasone Maryann 0.1% Cr 15 Gm) 1 appln TOP TID MATT Stop: 06/23/24 08:59 Last Admin: 05/30/24 13:03 Dose: 1 appln Documented By: Admin: 05/30/24 09:56 Dose: 1 appln Documented By: Admin: 05/29/24 20:45 Dose: 1 appln Documented By: Admin: 05/29/24 14:19 Dose: 1 appln Documented By: Admin: 05/29/24 08:17 Dose: 1 appln Documented By: Admin: 05/28/24 20:12 Dose: 1 appln Documented By: Admin: 05/28/24 14:31 Dose: 1 appln Documented By: Admin: 05/28/24 08:54 Dose: 1 appln Documented By: Admin: 05/27/24 21:34 Dose: 1 appln Documented By: Admin: 05/27/24 14:04 Dose: 1 appln Documented By: CHRISTIE(2) Admin: 05/27/24 09:30 Dose: 1 appln Documented By: CHRISTIE(2) Admin: 05/26/24 19:34 Dose: 1 appln Documented By: Admin: 05/26/24 16:31 Dose: 1 appln Documented By: Admin: 05/26/24 11:34 Dose: Not Given Documented By: Admin: 05/25/24 20:43 Dose: 1 appln Documented By: Admin: 05/25/24 13:09 Dose: 1 appln Documented By: Admin: 05/25/24 09:20 Dose: 1 appln Documented By: Admin: 05/24/24 21:22 Dose: 1 appln Documented By: Admin: 05/24/24 17:28 Dose: 1 appln Documented By: Admin: 05/24/24 08:11 Dose: 1 appln Documented By: MES Doxycycline Hyclate (Doxycycline Hyclate 100 Mg Cap) 100 mg PO BID MATT Stop: 06/02/24 08:59 Last Admin: 05/30/24 09:50 Dose: 100 mg Documented By: Admin: 05/29/24 20:43 Dose: 100 mg Documented By: Admin: 05/29/24 08:06 Dose: 100 mg Documented By: Admin: 05/28/24 20:10 Dose: 100 mg Documented By: Admin: 05/28/24 08:50 Dose: 100 mg Documented By: Admin: 05/27/24 21:42 Dose: 100 mg Documented By: Admin: 05/27/24 09:27 Dose: 100 mg Documented By: CHRISTIE(2) Admin: 05/26/24 19:33 Dose: 100 mg Documented By: Admin: 05/26/24 11:34 Dose: Not Given Documented By: DTT Duloxetine HCl (Duloxetine Hcl 60 Mg Cap) 60 mg PO QAM MATT Stop: 06/27/24 08:59 Last Admin: 05/30/24 09:51 Dose: 60 mg Documented By: Admin: 05/29/24 08:16 Dose: 60 mg Documented By: Admin: 05/28/24 08:51 Dose: 60 mg Documented By: CHRISTIE Famotidine (Famotidine 10 Mg Tablet) 10 mg PO BID PRN PRN Reason: gerd Stop: 06/24/24 20:59 Last Admin: 05/30/24 09:51 Dose: 10 mg Documented By: Admin: 05/28/24 08:49 Dose: 10 mg Documented By: Admin: 05/27/24 18:09 Dose: 10 mg Documented By: CHRISTIE(2) Admin: 05/26/24 03:28 Dose: 10 mg Documented By: Admin: 05/25/24 20:43 Dose: 10 mg Documented By: Admin: 05/25/24 12:54 Dose: 10 mg Documented By: PRIYA Hydromorphone HCl (Hydromorphone Hcl 2 Mg Tab) 2 mg PO Q4 PRN PRN Reason: Pain Stop: 06/10/24 15:43 Last Admin: 05/30/24 11:30 Dose: 2 mg Documented By: Admin: 05/30/24 06:44 Dose: 2 mg Documented By: Admin: 05/30/24 01:42 Dose: 2 mg Documented By: Admin: 05/29/24 20:42 Dose: 2 mg Documented By: Admin: 05/29/24 12:01 Dose: 2 mg Documented By: Admin: 05/29/24 08:13 Dose: 2 mg Documented By: Admin: 05/28/24 22:54 Dose: 2 mg Documented By: Admin: 05/28/24 01:42 Dose: 2 mg Documented By: Admin: 05/27/24 21:40 Dose: 2 mg Documented By: Admin: 05/27/24 17:18 Dose: 2 mg Documented By: CHRISTIE(2) Insulin Aspart (Insulin Aspart Per Unit Charge) 0 units SC ACHS MATT Stop: 06/23/24 07:29 Last Admin: 05/30/24 13:02 Dose: Not Given Documented By: Admin: 05/30/24 09:44 Dose: Not Given Documented By: Admin: 05/29/24 20:46 Dose: Not Given Documented By: Admin: 05/29/24 18:02 Dose: Not Given Documented By: Admin: 05/29/24 12:01 Dose: Not Given Documented By: Admin: 05/29/24 08:11 Dose: Not Given Documented By: Admin: 05/28/24 20:09 Dose: Not Given Documented By: Admin: 05/28/24 17:26 Dose: Not Given Documented By: Admin: 05/28/24 11:37 Dose: Not Given Documented By: Admin: 05/28/24 08:47 Dose: 14 units Documented By: CHRISTIE Co-signed By: KJS Admin: 05/27/24 21:57 Dose: Not Given Documented By: Admin: 05/27/24 17:18 Dose: 1 units Documented By: CHRISTIE(2) Co-signed By: Admin: 05/27/24 12:36 Dose: 1 units Documented By: CHRISTIE(2) Co-signed By: KJS Admin: 05/27/24 09:26 Dose: 8 units Documented By: CHRISTIE(2) Co-signed By: KJS Admin: 05/26/24 20:28 Dose: Not Given Documented By: Admin: 05/26/24 17:49 Dose: Not Given Documented By: Admin: 05/26/24 12:32 Dose: Not Given Documented By: Admin: 05/26/24 11:33 Dose: Not Given Documented By: Admin: 05/25/24 20:33 Dose: Not Given Documented By: Admin: 05/25/24 17:01 Dose: 5 units Documented By: DTT Co-signed By: CA Admin: 05/25/24 13:12 Dose: 11 units Documented By: CNB Co-signed By: CA Admin: 05/25/24 09:12 Dose: 19 units Documented By: CNB Co-signed By: ELIZABETH Admin: 05/24/24 20:12 Dose: Not Given Documented By: Admin: 05/24/24 17:39 Dose: 16 units Documented By: AUGUSTA Co-signed By: JENNIFER(2) Admin: 05/24/24 12:22 Dose: 21 units Documented By: MES Co-signed By: CA Admin: 05/24/24 08:48 Dose: 19 units Documented By: AUGUSTA Co-signed By: JENNIFER(2) Insulin Glargine (Lantus Per Unit Charge) 0 units SC BID [facility]; Protocol Stop: 06/24/24 20:59 Last Admin: 05/28/24 08:47 Dose: 25 units Documented By: CHRISTIE Co-signed By: KYLEE Admin: 05/27/24 22:08 Dose: 25 units Documented By: JENNIFER Co-signed By: JOO Admin: 05/27/24 09:26 Dose: 25 units Documented By: CHRISTIE(2) Co-signed By: KYLEE Admin: 05/26/24 20:28 Dose: 30 units Documented By: FRANCIS Co-signed By: KARLA Admin: 05/26/24 11:34 Dose: Not Given Documented By: Admin: 05/25/24 20:42 Dose: 25 units Documented By: SIENNA Co-signed By: CASSIE Levofloxacin (Levofloxacin 500 Mg Tab) 500 mg PO [facility] Stop: 06/02/24 20:59 Last Admin: 05/29/24 20:44 Dose: 500 mg Documented By: Admin: 05/28/24 20:17 Dose: 500 mg Documented By: Admin: 05/27/24 21:42 Dose: 500 mg Documented By: Admin: 05/26/24 20:27 Dose: 500 mg Documented By: FRANCIS Levothyroxine Sodium (Levothyroxine Sodium 88 Mcg Tablet) [facility] Stop: 06/23/24 06:29 Last Admin: 05/30/24 11:28 Dose: 88 mcg Documented By: Admin: 05/29/24 06:13 Dose: 88 mcg Documented By: Admin: 05/28/24 05:46 Dose: 88 mcg Documented By: Admin: 05/27/24 05:48 Dose: 88 mcg Documented By: Admin: 05/26/24 05:59 Dose: 88 mcg Documented By: Admin: 05/25/24 05:13 Dose: 88 mcg Documented By: Admin: 05/24/24 06:43 Dose: 88 mcg Documented By: ROMINA Lisinopril (Lisinopril 5 Mg Tab) 5 mg PO [facility] Stop: 06/27/24 08:59 Last Admin: 05/30/24 09:51 Dose: 5 mg Documented By: Admin: 05/29/24 08:17 Dose: 5 mg Documented By: Admin: 05/28/24 08:53 Dose: 5 mg Documented By: CHRISTIE Metoprolol Succinate (Metoprolol Succ 50mg Ext Rel Tab) [facility] Stop: 06/25/24 08:59 Last Admin: 05/30/24 09:50 Dose: 150 mg Documented By: Admin: 05/29/24 08:07 Dose: 150 mg Documented By: Admin: 05/28/24 08:49 Dose: 150 mg Documented By: Admin: 05/27/24 09:27 Dose: 150 mg Documented By: CHRISTIE(2) Admin: 05/26/24 11:36 Dose: Not Given Documented By: DTT Miscellaneous (Carbohydrates For Hypoglycemia ) 15 - 30 gm PO UD PRN PRN Reason: Hypoglycemia Treatment Stop: 06/23/24 03:29 Last Admin: 05/28/24 11:52 Dose: 15 gm Documented By: Admin: 05/28/24 11:29 Dose: 30 gm Documented By: CHRISTIE Nystatin (Nystatin Powder 15gm Btl) 1 appln EXT BID MATT Stop: 06/23/24 00:59 Last Admin: 05/30/24 09:51 Dose: 1 appln Documented By: Admin: 05/29/24 20:47 Dose: 1 appln Documented By: Admin: 05/29/24 08:08 Dose: 1 appln Documented By: Admin: 05/28/24 20:09 Dose: 1 appln Documented By: Admin: 05/28/24 08:49 Dose: 1 appln Documented By: Admin: 05/27/24 21:34 Dose: 1 appln Documented By: Admin: 05/27/24 09:30 Dose: 1 appln Documented By: CHRISTIE(2) Admin: 05/26/24 19:34 Dose: 1 appln Documented By: Admin: 05/26/24 11:36 Dose: Not Given Documented By: Admin: 05/25/24 20:43 Dose: 1 appln Documented By: Admin: 05/25/24 09:20 Dose: 1 appln Documented By: Admin: 05/24/24 21:22 Dose: 1 appln Documented By: Admin: 05/24/24 03:16 Dose: 1 appln Documented By: SHERI Ondansetron HCl (Ondansetron Inj 2 Mg/Ml 2 Ml Vial) 4 mg IV Q6H PRN PRN Reason: Nausea And Vomiting Stop: 06/28/24 08:27 Last Admin: 05/30/24 13:01 Dose: 4 mg Documented By: Admin: 05/29/24 12:00 Dose: 4 mg Documented By: CHRISTIE Pantoprazole Sodium (Pantoprazole 40 Mg Tab) 40 mg PO DAILY MATT Stop: 06/25/24 08:59 Last Admin: 05/30/24 09:51 Dose: 40 mg Documented By: Admin: 05/29/24 08:08 Dose: 40 mg Documented By: Admin: 05/28/24 08:49 Dose: 40 mg Documented By: Admin: 05/27/24 09:29 Dose: 40 mg Documented By: CHRISTIE(2) Admin: 05/26/24 11:36 Dose: Not Given Documented By: DTT Polyethylene Glycol (Polyethylene (Miralax) 17 Gm Pack) 17 gm PO DAILY MATT Stop: 06/29/24 08:59 Last Admin: 05/30/24 09:50 Dose: 17 gm Documented By: JESSICA Polymyxin/Trimethoprim Sulfate (Trimethoprim/Polymyxin B) 1 drops OPR QID MATT Stop: 06/26/24 01:19 Last Admin: 05/30/24 13:02 Dose: 1 drops Documented By: Admin: 05/30/24 11:28 Dose: 1 drops Documented By: Admin: 05/29/24 20:46 Dose: 1 drops Documented By: Admin: 05/29/24 18:02 Dose: 1 drops Documented By: Admin: 05/29/24 14:18 Dose: 1 drops Documented By: Admin: 05/29/24 08:07 Dose: 1 drops Documented By: Admin: 05/28/24 20:12 Dose: 1 drops Documented By: Admin: 05/28/24 17:25 Dose: 1 drops Documented By: Admin: 05/28/24 14:31 Dose: 1 drops Documented By: Admin: 05/28/24 08:54 Dose: 1 drops Documented By: Admin: 05/27/24 21:43 Dose: 1 drops Documented By: Admin: 05/27/24 16:14 Dose: 1 drops Documented By: CHRISTIE(2) Admin: 05/27/24 12:40 Dose: 1 drops Documented By: CHRISTIE(2) Admin: 05/27/24 09:28 Dose: 1 drops Documented By: CHRISTIE(2) Admin: 05/27/24 02:00 Dose: 1 drops Documented By: FRANCIS Pregabalin (Pregabalin 75 Mg Cap) 75 mg PO TID MATT Stop: 06/28/24 20:59 Last Admin: 05/30/24 13:22 Dose: 75 mg Documented By: Admin: 05/30/24 09:50 Dose: 75 mg Documented By: Admin: 05/29/24 20:48 Dose: 75 mg Documented By: ALICIA Senna/Docusate Sodium (Docusate Sodium/Senna 50/8.6mg Tab) 1 tab PO BID [facility] Stop: 06/26/24 01:44 Last Admin: 05/30/24 09:50 Dose: 1 tab Documented By: Admin: 05/29/24 20:48 Dose: 1 tab Documented By: Admin: 05/29/24 08:13 Dose: 1 tab Documented By: Admin: 05/28/24 20:10 Dose: Not Given Documented By: Admin: 05/28/24 09:17 Dose: 1 tab Documented By: Admin: 05/27/24 21:40 Dose: 1 tab Documented By: Admin: 05/27/24 09:25 Dose: 1 tab Documented By: CHRISTIE(2) Admin: 05/27/24 01:36 Dose: 1 tab Documented By: FRANCIS Spironolactone (Spironolactone 25 Mg Tab) 25 mg PO DAILY [facility] Stop: 06/27/24 08:59 Last Admin: 05/30/24 09:45 Dose: 25 mg Documented By: Admin: 05/29/24 08:16 Dose: 25 mg Documented By: Admin: 05/28/24 08:53 Dose: 25 mg Documented By: CHRISTIE Warfarin Sodium (Warfarin Sod 3 Mg Tab) 3 mg PO DAILY@1600 [facility] Stop: 06/27/24 15:59 Last Admin: 05/29/24 18:01 Dose: 3 mg Documented By: Admin: 05/28/24 17:25 Dose: 3 mg Documented By: CHRISTIE (9) CKD (chronic kidney disease) stage 3, GFR 30-59 ml/min Chronic kidney disease stage 3 subtype: stage 3a (GFR 45-59) Qualified Code(s): N18.31 - Chronic kidney disease, stage 3a
[2024-05-30] MEDS: OPTIRAY 320 125ml IV ONE (14:43)
--- NOTE | 2024-05-30 15:09 | CT Scan Report ---
CT abdomen pelvis wo/w con CLINICAL HISTORY: concern for SBO COMPARISON STUDY: 05/26/2024 FINDINGS: There are small bilateral pleural effusions, increased in size. There is mild adjacent lowe r lobe compressive atelectasis. ABDOMEN: There are gallstones without evidence of acute cholecystitis. There is mild fatty liver. Oth erwise liver, spleen, pancreas, and adrenal glands are unremarkable. Kidneys show no hydronephrosis. There are mild atherosclerotic calcifications. No abdominal aortic uterus. Pelvis: Molina catheter is present in the urinary bladder is nondistended. There is moderate retained stool. No bowel inflammation or obstruction. There is trace anasarca and trace ascites. No other free fluid, free air, or abscess. No enlarged adenopathy. No acute osseous findings. IMPRESSION: 1. No acute findings. No evidence of bowel obstruction. 2. Otherwise as described. ACT 112: Negative or not required by law. Electronically signed by: Jadiel Chand M.D. 05/30/2024 3:08 PM
[2024-05-30] MEDS: DOCUSATE SODIUM/SENNA 50/8.6MG TAB PO SCH (20:29)
[2024-05-30] MEDS: PANTOprazole 40 MG TAB PO SCH (20:31)
[2024-05-31 08:32] LABS: Hematocrit (blood only) 38.1 % (42.0-52.0); Hemoglobin 11.7 g/dl (14.0-18.0); Mean Corpuscular Hemoglobin 26.8 pg (25.0-34.0); Mean Corpuscular Hgb Conc 30.7 g/dL (32.0-36.0); Mean Corpuscular Volume 87.2 fL (80.0-100.0); Mean Platelet Volume 9.2 fL (9.4-12.4); Platelet Count 359 K/uL (130-400); RDW Coefficient of Variation 18.9 % (11.5-14.5); RDW Standard Deviation 60.7 fL (36.4-46.3); Red Blood Count 4.37 M/uL (4.70-6.10); White Blood Count 5.65 K/ul (4.8-10.8)
[2024-05-31 08:52] LABS: INR 3.7 (0.9-1.1); Prothrombin Time 35.7 Seconds (9.0-12.0)
[2024-05-31 08:53] LABS: BUN Creatinine Ratio 15.4 (10-20); Calcium 8.9 mg/dl (8.6-10.3); Creatinine Clr Calc Pharmacy 157.6 ml/min; Potassium 4.1 mmol/L (3.5-5.1)
--- NOTE | 2024-05-31 10:49 | Pharmacy Report ---
Pharmacy Glycemic Short Note 2 - Date of Service May 31, 2024 - Glycemic Short BSG Results (Last 24 hours): 05/30/24 05/30/24 05/30/24 12:01 17:08 20:02 Glucose POC Glucose 112 H 113 H 133 H 05/31/24 05/31/24 07:18 08:11 Glucose 110 H POC Glucose 118 H OUTPATIENT ANTIDIABETIC REGIMEN: * Novolog pump * pre-meal target range: 90-150 mg/dL * post-meal target range: <220 mg/dL * Carb ratio: 1:3 g/unit * Correction factor: 1:30 unit/mg/dL * Basal rate: 7 units/hr (4697-6798), 6 units/hr (6704-8082), 7 units/hr (4911-1130) - 155 units/day HbA1c: 7.5% (02/09/24), 8.1% (04/2024 per H&P) ASSESSMENT: 05/30: * Ben received no insulin yesterday * Fasting BSG this AM within goal range, continue to hold basal until PO appetite improves. * Unable to assess NovoLog since patient has not been eating due to nausea/abdominal cramping. 05/29: * Received 25 units of basal yesterday and 14 more units of bolus. BSGs were 39-99-974-104 mg/dL. * Patient continues to not eat today per RN. BSGs 108 and 104 mg/dL. Will hold basal until patient eating again. Considered low dose basal just so some is on board but RN concerned given hypoglycemia yesterday. * No changes to Novolog. 05/28: * Received 60 units of insulin yesterday, 50 of which were basal. BSGs were [phone] mg/dL. * Fasting BSG down to 90 mg/dL this AM. Reduced basal. * Lunchtime hypoglycemia at 52 mg/dL today. Required 45 g of carbs to bring BSG up to 76 mg/dL. Thankfully, patient was asymptomatic during this event. Unsure of reasoning for hypoglycemia but suspect basal overload combined with tight carb ratio. Will loosen carb ratio and hold lunch Novolog. Holding PM basal dose and will reassess tomorrow morning. 05/27: * BSGs have been fairly stable for the past 48 hours. * Pt refused his morning insulin yesterday, so BSGs have been trending up today, but still reasonable. * Pt has requested a regular diet rather than a diabetic diet. * Slight adjustment made to Lantus dosing this morning in an attempt to avoid hypoglycemia and discourage pt refusal of doses. * Pharmacy will continue to follow and adjust regimen as indicated. 05/24: * CG is a 58 year old male who presents to ED s/p mechanical fall out of wheelchair * Patient is well-known to pharmacy glycemic service s/p multiple admissions/consultations * Reasonably well-controlled T2DM as an outpatient with Novolog insulin pump ( fairly large daily insulin doses) * Insulin pump removed prior to admission * Will utilize pump settings and prior inpatient glycemic data to guide initial SC insulin dosing PLAN FOR INPATIENT GLYCEMIC CONTROL: * Hold insulin pump * Basal insulin * Hold basal until patient eating again * Bolus insulin * NovoLog per scale ACHS or Q6hrs while NPO * Goal Range: Low 110 mg/dL - High 150 mg/dL * Correction Factor: 30 mg/dL/unit * Nutritional / Prandial insulin per carb ratio of 1 unit per 5 grams CHO consumed
--- NOTE | 2024-05-31 15:21 | Hospitalist Progress Note ---
Date of Service May 31, 2024 Assessment & Plan (1) Atrial fibrillation with RVR: Plan: -noted RVR on arrival, placed on dilt drip -appears much improved this morning, likely in setting of poor self care at home and medicaion compliance Plan: -continue metoprolol succinate 150 mg daily -continue aldactone, lisinopril, well tolerated -continue warfarin, adjust based on INR (2) Chronic systolic heart failure: Plan: -noted on echo, EF slightly decreased to 30-35% -does not appear fluid overloaded at this time Plan: -optimize GDMT -see above -add SGLT 2 inhibitor before discharge (3) Ileus: Plan: -minimal tenderness to palpation, still moving bowels per patient -per patient last BM yesterday, KUB shows generalized constipation, appears unchanged to prior imaging -no evidence of transition point or SBO at this time -CT abdomen pelvis unremarkable Plan: -miralax, senna, suppository again today (4) Adult failure to thrive: Plan: -patient has had numerous hospitalizations in regards to failure to thrive at home -appears disheveled, found by EMS with pet at door, poor living conditions -high concern given psychiatric concerns and overall condition that patient will be unable to safely return home Plan: -PT/OT ordered -discussed with field nurse case manager, filled out APS requested forms in regards to disposition -of note, over my past few days patient has showed medical capacity in regards to his medical conditions, but has not exhibited understanding or appreciation of his ability to take care of himself, and is a danger to self living on his own at this time (5) Cellulitis of left lower leg: Plan: -suspect chronic stasis dermatitis with potential superimposed cellulitis -supported by CT femur, personally interpreted -s/p 7 day course of abx Plan: -dermatology consult outpatient given recurrence (6) 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: Plan: -relatively controlled Plan: -insulin protocol -regular diet (7) PVD (peripheral vascular disease): Plan: -noted from prior, s/p left BKA amputation (8) Morbid obesity: Plan: -likely contributer to PVD and recurrent cellulitis (9) CKD (chronic kidney disease) stage 3, GFR 30-59 ml/min: Plan: -creatinine at baseline (10) NINA on CPAP: Plan: -continue CPAP (11) Cardiac defibrillator in situ: Plan: -noted (12) MDD (major depressive disorder), recurrent episode, mild: Plan: -patient has suicideal ideation without a plan, appears passive -patient is quite depressed, feels hopeless Plan: -psych consult, appreciate recs -zyprexa prn for agitation -consult spiritual care, psychology as well (13) Lymphedema: Plan: -likely contributer to cellulitis Plan: -f/u with [facility] outpatient (14) Chronic pain syndrome: Plan: -checked [employer], 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 Plan: -continue home oxycodone -continue duloxetine 60 mg -continue pregablin 50 tid for severe neuropathic pain Plan Feeding/fluids: regular Analgesia: tylenol, dilaudid Sedation: na Thromboprophylaxis: warfarin Head up position: na Ulcer prophylaxis: na Glycemic control: insulin protocol Spontaneous breathing trial: na Bowel care: miralax, senna, suppository prn Indwelling catheter removal: na Deescalation of antibiotics: na I spent a total of 40 minutes in direct patient care, including [id number] time with the patient and/or family, reviewing medical records, ordering and reviewing diagnostic tests, and coordinating care with other healthcare providers. This time includes: history taking, physical examination, medical decision making, counseling, ECG interpretation, imaging interpretation, lab interpretation, orders, and education, excluding time spent in the performance of separately billed services. Admission and Anticipated Discharge Date Admission Date: May 24, 2024 Subjective seen and examined at bedside. Patient doing well today, no current concerns. Awaiting rehab. Review of Systems Review of Systems: CONSTITUTIONAL: Patient denies fevers, chills, sweats and weight changes. EYES: Patient denies any visual symptoms. EARS, NOSE, AND THROAT: No difficulties with hearing. No symptoms of rhinitis or sore throat. CARDIOVASCULAR: Patient denies chest pains, palpitations, orthopnea and paroxysmal nocturnal dyspnea. RESPIRATORY: No dyspnea on exertion, no wheezing or cough. GI: some abdominal pain diffusely : No urinary hesitancy or dribbling. No nocturia or urinary frequency. No abnormal urethral discharge. MUSCULOSKELETAL: pain in bilateral LE, left stump erythema, improving NEUROLOGIC: No chronic headaches, no seizures. Patient denies numbness, tingling or weakness. PSYCHIATRIC: depression, anxiety ENDOCRINE: No excessive urination or excessive thirst. DERMATOLOGIC: left stump erythema, improving Physical Exam Physical Exam: Gen: A&O 3 NAD, large body habitus HEENT: NCAT, EOMI, not icteric. External ears normal. No rhinorrhea. Moist mucous membranes. Neck: Supple, full range of motion, no observable masses, No meningeal sign. Lungs: No Respiratory distress. CV: RRR, no edema. Abdomen: minimal tenderness to palpation MSK: noted erythema on left stump, improved from prior Skin: see above Neuro: Normal Gait, Grossly intact. Psych: depressed affect Results & Data Results & Data Vital Signs (Past 12 Hours) Vital Signs Temp Pulse Pulse Resp BP Pulse Ox O2 Del Method 05/31/24 13:04 64 05/31/24 11:47 36.3 C L 76 20 108/69 96 Room Air 05/31/24 09:45 66 05/31/24 09:45 Room Air 05/31/24 07:44 36.3 C L 69 20 138/89 97 Room Air 05/31/24 05:45 66 Laboratory Results - Personally reviewed, hemoglobin creatinine at baseline, no leukocytosis Medications Administered Acetaminophen (Acetaminophen 500 Mg Tab) 500 mg PO Q6H PRN PRN Reason: fever/pain Stop: 06/23/24 00:56 Last Admin: 05/29/24 23:48 Dose: 500 mg Documented By: Admin: 05/29/24 08:05 Dose: 500 mg Documented By: Admin: 05/28/24 20:09 Dose: 500 mg Documented By: Admin: 05/28/24 14:33 Dose: 500 mg Documented By: Admin: 05/28/24 08:48 Dose: 500 mg Documented By: Admin: 05/27/24 12:40 Dose: 500 mg Documented By: CHRISTIE(2) Admin: 05/27/24 00:32 Dose: 500 mg Documented By: Admin: 05/26/24 17:02 Dose: 500 mg Documented By: Admin: 05/24/24 13:07 Dose: 500 mg Documented By: Admin: 05/24/24 05:26 Dose: 500 mg Documented By: AMC Aspirin (Aspirin 81 Mg Ectab) 81 mg PO DAILY MATT Stop: 06/23/24 08:59 Last Admin: 05/31/24 09:01 Dose: 81 mg Documented By: Admin: 05/30/24 09:50 Dose: 81 mg Documented By: Admin: 05/29/24 08:06 Dose: 81 mg Documented By: Admin: 05/28/24 08:49 Dose: 81 mg Documented By: Admin: 05/27/24 09:29 Dose: 81 mg Documented By: CHRISTIE(2) Admin: 05/26/24 11:34 Dose: Not Given Documented By: Admin: 05/25/24 09:19 Dose: 81 mg Documented By: Admin: 05/24/24 08:10 Dose: 81 mg Documented By: MES Betamethasone Valerate (Betamethasone Maryann 0.1% Cr 15 Gm) 1 appln TOP TID MATT Stop: 06/23/24 08:59 Last Admin: 05/31/24 14:41 Dose: 1 appln Documented By: Admin: 05/31/24 09:03 Dose: 1 appln Documented By: Admin: 05/30/24 20:35 Dose: 1 appln Documented By: Admin: 05/30/24 13:03 Dose: 1 appln Documented By: Admin: 05/30/24 09:56 Dose: 1 appln Documented By: Admin: 05/29/24 20:45 Dose: 1 appln Documented By: Admin: 05/29/24 14:19 Dose: 1 appln Documented By: Admin: 05/29/24 08:17 Dose: 1 appln Documented By: Admin: 05/28/24 20:12 Dose: 1 appln Documented By: Admin: 05/28/24 14:31 Dose: 1 appln Documented By: Admin: 05/28/24 08:54 Dose: 1 appln Documented By: Admin: 05/27/24 21:34 Dose: 1 appln Documented By: Admin: 05/27/24 14:04 Dose: 1 appln Documented By: CHRISTIE(2) Admin: 05/27/24 09:30 Dose: 1 appln Documented By: CHRISTIE(2) Admin: 05/26/24 19:34 Dose: 1 appln Documented By: Admin: 05/26/24 16:31 Dose: 1 appln Documented By: Admin: 05/26/24 11:34 Dose: Not Given Documented By: Admin: 05/25/24 20:43 Dose: 1 appln Documented By: Admin: 05/25/24 13:09 Dose: 1 appln Documented By: Admin: 05/25/24 09:20 Dose: 1 appln Documented By: Admin: 05/24/24 21:22 Dose: 1 appln Documented By: Admin: 05/24/24 17:28 Dose: 1 appln Documented By: Admin: 05/24/24 08:11 Dose: 1 appln Documented By: AUGUSTA Duloxetine HCl (Duloxetine Hcl 60 Mg Cap) 60 mg PO QAM MATT Stop: 06/27/24 08:59 Last Admin: 05/31/24 09:01 Dose: 60 mg Documented By: Admin: 05/30/24 09:51 Dose: 60 mg Documented By: Admin: 05/29/24 08:16 Dose: 60 mg Documented By: Admin: 05/28/24 08:51 Dose: 60 mg Documented By: CHRISTIE Famotidine (Famotidine 10 Mg Tablet) 10 mg PO BID PRN PRN Reason: gerd Stop: 06/24/24 20:59 Last Admin: 05/30/24 09:51 Dose: 10 mg Documented By: Admin: 05/28/24 08:49 Dose: 10 mg Documented By: Admin: 05/27/24 18:09 Dose: 10 mg Documented By: CHRISTIE(2) Admin: 05/26/24 03:28 Dose: 10 mg Documented By: Admin: 05/25/24 20:43 Dose: 10 mg Documented By: Admin: 05/25/24 12:54 Dose: 10 mg Documented By: PRIYA Hydromorphone HCl (Hydromorphone Hcl 2 Mg Tab) 2 mg PO Q4 PRN PRN Reason: Pain Stop: 06/10/24 15:43 Last Admin: 05/31/24 14:40 Dose: 2 mg Documented By: Admin: 05/31/24 06:36 Dose: 2 mg Documented By: Admin: 05/30/24 20:30 Dose: 2 mg Documented By: Admin: 05/30/24 11:30 Dose: 2 mg Documented By: Admin: 05/30/24 06:44 Dose: 2 mg Documented By: Admin: 05/30/24 01:42 Dose: 2 mg Documented By: Admin: 05/29/24 20:42 Dose: 2 mg Documented By: Admin: 05/29/24 12:01 Dose: 2 mg Documented By: Admin: 05/29/24 08:13 Dose: 2 mg Documented By: Admin: 05/28/24 22:54 Dose: 2 mg Documented By: Admin: 05/28/24 01:42 Dose: 2 mg Documented By: Admin: 05/27/24 21:40 Dose: 2 mg Documented By: Admin: 05/27/24 17:18 Dose: 2 mg Documented By: CHRISTIE(2) Insulin Aspart (Insulin Aspart Per Unit Charge) 0 units SC ACHS MATT Stop: 06/23/24 07:29 Last Admin: 05/31/24 13:08 Dose: Not Given Documented By: Admin: 05/31/24 09:05 Dose: Not Given Documented By: Admin: 05/30/24 20:20 Dose: Not Given Documented By: Admin: 05/30/24 17:42 Dose: Not Given Documented By: Admin: 05/30/24 13:02 Dose: Not Given Documented By: Admin: 05/30/24 09:44 Dose: Not Given Documented By: Admin: 05/29/24 20:46 Dose: Not Given Documented By: Admin: 05/29/24 18:02 Dose: Not Given Documented By: Admin: 05/29/24 12:01 Dose: Not Given Documented By: Admin: 05/29/24 08:11 Dose: Not Given Documented By: Admin: 05/28/24 20:09 Dose: Not Given Documented By: Admin: 05/28/24 17:26 Dose: Not Given Documented By: Admin: 05/28/24 11:37 Dose: Not Given Documented By: Admin: 05/28/24 08:47 Dose: 14 units Documented By: CHRISTIE Co-signed By: KYLEE Admin: 05/27/24 21:57 Dose: Not Given Documented By: Admin: 05/27/24 17:18 Dose: 1 units Documented By: CHRISTIE(2) Co-signed By: Admin: 05/27/24 12:36 Dose: 1 units Documented By: CHRISTIE(2) Co-signed By: KJS Admin: 05/27/24 09:26 Dose: 8 units Documented By: CHRISTIE(2) Co-signed By: KJS Admin: 05/26/24 20:28 Dose: Not Given Documented By: Admin: 05/26/24 17:49 Dose: Not Given Documented By: Admin: 05/26/24 12:32 Dose: Not Given Documented By: Admin: 05/26/24 11:33 Dose: Not Given Documented By: Admin: 05/25/24 20:33 Dose: Not Given Documented By: Admin: 05/25/24 17:01 Dose: 5 units Documented By: DTT Co-signed By: CA Admin: 05/25/24 13:12 Dose: 11 units Documented By: PRIYA Co-signed By: CA Admin: 05/25/24 09:12 Dose: 19 units Documented By: PRIYA Co-signed By: ELIZABETH Admin: 05/24/24 20:12 Dose: Not Given Documented By: Admin: 05/24/24 17:39 Dose: 16 units Documented By: AUGUSTA Co-signed By: JENNIFER(2) Admin: 05/24/24 12:22 Dose: 21 units Documented By: AUGUSTA Co-signed By: DANIS Admin: 05/24/24 08:48 Dose: 19 units Documented By: AUGUSTA Co-signed By: JENNIFER(2) Insulin Glargine (Lantus Per Unit Charge) 0 units SC BID [facility]; Protocol Stop: 06/24/24 20:59 Last Admin: 05/28/24 08:47 Dose: 25 units Documented By: CHRISTIE Co-signed By: KJVanessa Admin: 05/27/24 22:08 Dose: 25 units Documented By: JENNIFER Co-signed By: JOO Admin: 05/27/24 09:26 Dose: 25 units Documented By: CHRISTIE(2) Co-signed By: KJS Admin: 05/26/24 20:28 Dose: 30 units Documented By: FRANCIS Co-signed By: KARLA Admin: 05/26/24 11:34 Dose: Not Given Documented By: Admin: 05/25/24 20:42 Dose: 25 units Documented By: SIENNA Co-signed By: CASSIE Levothyroxine Sodium (Levothyroxine Sodium 88 Mcg Tablet) [facility] Stop: 06/23/24 06:29 Last Admin: 05/31/24 06:36 Dose: 88 mcg Documented By: Admin: 05/30/24 11:28 Dose: 88 mcg Documented By: Admin: 05/29/24 06:13 Dose: 88 mcg Documented By: Admin: 05/28/24 05:46 Dose: 88 mcg Documented By: Admin: 05/27/24 05:48 Dose: 88 mcg Documented By: Admin: 05/26/24 05:59 Dose: 88 mcg Documented By: Admin: 05/25/24 05:13 Dose: 88 mcg Documented By: Admin: 05/24/24 06:43 Dose: 88 mcg Documented By: ROMINA Lisinopril (Lisinopril 5 Mg Tab) 5 mg PO [facility] Stop: 06/27/24 08:59 Last Admin: 05/31/24 09:01 Dose: 5 mg Documented By: Admin: 05/30/24 09:51 Dose: 5 mg Documented By: Admin: 05/29/24 08:17 Dose: 5 mg Documented By: Admin: 05/28/24 08:53 Dose: 5 mg Documented By: CHRISTIE Metoprolol Succinate (Metoprolol Succ 50mg Ext Rel Tab) 150 mg PO [facility] Stop: 06/25/24 08:59 Last Admin: 05/31/24 09:00 Dose: 150 mg Documented By: Admin: 05/30/24 09:50 Dose: 150 mg Documented By: Admin: 05/29/24 08:07 Dose: 150 mg Documented By: Admin: 05/28/24 08:49 Dose: 150 mg Documented By: Admin: 05/27/24 09:27 Dose: 150 mg Documented By: CHRISTIE(2) Admin: 05/26/24 11:36 Dose: Not Given Documented By: DTT Miscellaneous (Carbohydrates For Hypoglycemia ) 15 - 30 gm PO UD PRN PRN Reason: Hypoglycemia Treatment Stop: 06/23/24 03:29 Last Admin: 05/28/24 11:52 Dose: 15 gm Documented By: Admin: 05/28/24 11:29 Dose: 30 gm Documented By: CHRISTIE Nystatin (Nystatin Powder 15gm Btl) 1 appln EXT BID MATT Stop: 06/23/24 00:59 Last Admin: 05/31/24 09:02 Dose: 1 appln Documented By: Admin: 05/30/24 20:35 Dose: 1 appln Documented By: Admin: 05/30/24 09:51 Dose: 1 appln Documented By: Admin: 05/29/24 20:47 Dose: 1 appln Documented By: Admin: 05/29/24 08:08 Dose: 1 appln Documented By: Admin: 05/28/24 20:09 Dose: 1 appln Documented By: Admin: 05/28/24 08:49 Dose: 1 appln Documented By: Admin: 05/27/24 21:34 Dose: 1 appln Documented By: Admin: 05/27/24 09:30 Dose: 1 appln Documented By: CHRISTIE(2) Admin: 05/26/24 19:34 Dose: 1 appln Documented By: Admin: 05/26/24 11:36 Dose: Not Given Documented By: Admin: 05/25/24 20:43 Dose: 1 appln Documented By: Admin: 05/25/24 09:20 Dose: 1 appln Documented By: Admin: 05/24/24 21:22 Dose: 1 appln Documented By: Admin: 05/24/24 03:16 Dose: 1 appln Documented By: SHERI Ondansetron HCl (Ondansetron Inj 2 Mg/Ml 2 Ml Vial) 4 mg IV Q6H PRN PRN Reason: Nausea And Vomiting Stop: 06/28/24 08:27 Last Admin: 05/31/24 14:41 Dose: 4 mg Documented By: Admin: 05/30/24 21:44 Dose: 4 mg Documented By: Admin: 05/30/24 13:01 Dose: 4 mg Documented By: Admin: 05/29/24 12:00 Dose: 4 mg Documented By: CHRISTIE Pantoprazole Sodium (Pantoprazole 40 Mg Tab) 40 mg PO BID MATT Stop: 06/29/24 20:59 Last Admin: 05/31/24 09:02 Dose: 40 mg Documented By: Admin: 05/30/24 20:31 Dose: 40 mg Documented By: MARTHA Polyethylene Glycol (Polyethylene (Miralax) 17 Gm Pack) 17 gm PO BID MATT Stop: 06/29/24 20:59 Last Admin: 05/31/24 08:59 Dose: 17 gm Documented By: Admin: 05/30/24 20:31 Dose: 17 gm Documented By: MARTHA Polymyxin/Trimethoprim Sulfate (Trimethoprim/Polymyxin B) 1 drops OPR QID MATT Stop: 06/26/24 01:19 Last Admin: 05/31/24 14:29 Dose: 1 drops Documented By: Admin: 05/31/24 09:00 Dose: 1 drops Documented By: Admin: 05/30/24 20:31 Dose: 1 drops Documented By: Admin: 05/30/24 18:01 Dose: 1 drops Documented By: Admin: 05/30/24 13:02 Dose: 1 drops Documented By: Admin: 05/30/24 11:28 Dose: 1 drops Documented By: Admin: 05/29/24 20:46 Dose: 1 drops Documented By: Admin: 05/29/24 18:02 Dose: 1 drops Documented By: Admin: 05/29/24 14:18 Dose: 1 drops Documented By: Admin: 05/29/24 08:07 Dose: 1 drops Documented By: Admin: 05/28/24 20:12 Dose: 1 drops Documented By: Admin: 05/28/24 17:25 Dose: 1 drops Documented By: Admin: 05/28/24 14:31 Dose: 1 drops Documented By: Admin: 05/28/24 08:54 Dose: 1 drops Documented By: Admin: 05/27/24 21:43 Dose: 1 drops Documented By: Admin: 05/27/24 16:14 Dose: 1 drops Documented By: CM(2) Admin: 05/27/24 12:40 Dose: 1 drops Documented By: CM(2) Admin: 05/27/24 09:28 Dose: 1 drops Documented By: CM(2) Admin: 05/27/24 02:00 Dose: 1 drops Documented By: FRANCIS Pregabalin (Pregabalin 75 Mg Cap) 75 mg PO TID MATT Stop: 06/28/24 20:59 Last Admin: 05/31/24 14:40 Dose: 75 mg Documented By: Admin: 05/31/24 08:59 Dose: 75 mg Documented By: Admin: 05/30/24 20:31 Dose: 75 mg Documented By: Admin: 05/30/24 13:22 Dose: 75 mg Documented By: Admin: 05/30/24 09:50 Dose: 75 mg Documented By: Admin: 05/29/24 20:48 Dose: 75 mg Documented By: ALICIA Senna/Docusate Sodium (Docusate Sodium/Senna 50/8.6mg Tab) 2 tab PO BID MATT Stop: 06/29/24 20:59 Last Admin: 05/31/24 09:13 Dose: 2 tab Documented By: Admin: 05/30/24 20:29 Dose: 2 tab Documented By: MARTHA Spironolactone (Spironolactone 25 Mg Tab) 25 mg PO DAILY MATT Stop: 06/27/24 08:59 Last Admin: 05/31/24 09:03 Dose: 25 mg Documented By: Admin: 05/30/24 09:45 Dose: 25 mg Documented By: Admin: 05/29/24 08:16 Dose: 25 mg Documented By: Admin: 05/28/24 08:53 Dose: 25 mg Documented By: CHRISTIE Warfarin Sodium (Warfarin Sod 3 Mg Tab) 3 mg PO DAILY@1600 MATT Stop: 06/27/24 15:59 Last Admin: 05/29/24 18:01 Dose: 3 mg Documented By: Admin: 05/28/24 17:25 Dose: 3 mg Documented By: CHRISTIE (9) CKD (chronic kidney disease) stage 3, GFR 30-59 ml/min Chronic kidney disease stage 3 subtype: stage 3a (GFR 45-59) Qualified Code(s): N18.31 - Chronic kidney disease, stage 3a
[2024-06-01] MEDS: DICYCLOMINE HCL 10 MG CAP PO ONE (00:58)
[2024-06-01 06:58] LABS: Hematocrit (blood only) 38.2 % (42.0-52.0); Hemoglobin 11.5 g/dl (14.0-18.0); Mean Corpuscular Hemoglobin 26.3 pg (25.0-34.0); Mean Corpuscular Hgb Conc 30.1 g/dL (32.0-36.0); Mean Corpuscular Volume 87.2 fL (80.0-100.0); Platelet Count 321 K/uL (130-400); RDW Coefficient of Variation 20.1 % (11.5-14.5); RDW Standard Deviation 62.8 fL (36.4-46.3); Red Blood Count 4.38 M/uL (4.70-6.10); White Blood Count 5.01 K/ul (4.8-10.8)
[2024-06-01 07:27] LABS: BUN Creatinine Ratio 12.5 (10-20); Calcium 8.9 mg/dl (8.6-10.3); Creatinine Clr Calc Pharmacy 153.7 ml/min; Potassium 4.1 mmol/L (3.5-5.1)
[2024-06-01 07:41] LABS: INR 3.4 (0.9-1.1); Prothrombin Time 32.7 Seconds (9.0-12.0)
[2024-06-01] MEDS: LACTULOSE SYRUP 30 GM/45 ML UDP PO STA (10:27)
--- NOTE | 2024-06-01 13:50 | Pharmacy Report ---
Pharmacy Glycemic Short Note 2 - Date of Service June 01, 2024 - Glycemic Short BSG Results (Last 24 hours): 05/31/24 05/31/24 06/01/24 17:06 20:19 06:43 Glucose 114 H POC Glucose 114 H 127 H 06/01/24 06/01/24 08:20 12:27 Glucose POC Glucose 136 H 205 H OUTPATIENT ANTIDIABETIC REGIMEN: * Novolog pump * pre-meal target range: 90-150 mg/dL * post-meal target range: <220 mg/dL * Carb ratio: 1:3 g/unit * Correction factor: 1:30 unit/mg/dL * Basal rate: 7 units/hr (8878-3271), 6 units/hr (9304-4688), 7 units/hr (4297-0357) - 155 units/day HbA1c: 7.5% (02/09/24), 8.1% (04/2024 per H&P) ASSESSMENT: 06/01: * Patient did not receive any insulin yesterday, no carbs documented * Fasting BSG 114 mg/dL - held AM basal * Lunch BSG trending up to 205 mg/dL, despite no PO intake at breakfast - will add conservative basal dose for HS in case BSGs trend upward. It has been a few days since any basal insulin given so may start to see increase in blood sugars 05/30: * Ben received no insulin yesterday * Fasting BSG this AM within goal range, continue to hold basal until PO appetite improves. * Unable to assess NovoLog since patient has not been eating due to na usea/abdominal cramping. 05/29: * Received 25 units of basal yesterday and 14 more units of bolus. BSGs were 09-30-019-104 mg/dL. * Patient continues to not eat today per RN. BSGs 108 and 104 mg/dL. Will hold basal until patient eating again. Considered low dose basal just so some is on board but RN concerned given hypoglycemia yesterday. * No changes to Novolog. 05/28: * Received 60 units of insulin yesterday, 50 of which were basal. BSGs were [phone] mg/dL. * Fasting BSG down to 90 mg/dL this AM. Reduced basal. * Lunchtime hypoglycemia at 52 mg/dL today. Required 45 g of carbs to bring BSG up to 76 mg/dL. Thankfully, patient was asymptomatic during this event. Unsure of reasoning for hypoglycemia but suspect basal overload combined with tight carb ratio. Will loosen carb ratio and hold lunch Novolog. Holding PM basal dose and will reassess tomorrow morning. 05/27: * BSGs have been fairly stable for the past 48 hours. * Pt refused his morning insulin yesterday, so BSGs have been trending up today, but still reasonable. * Pt has requested a regular diet rather than a diabetic diet. * Slight adjustment made to Lantus dosing this morning in an attempt to avoid hypoglycemia and discourage pt refusal of doses. * Pharmacy will continue to follow and adjust regimen as indicated. 05/24: * CG is a 58 year old male who presents to ED s/p mechanical fall out of wheelchair * Patient is well-known to pharmacy glycemic service s/p multiple admissions/consultations * Reasonably well-controlled T2DM as an outpatient with Novolog insulin pump (fairly large daily insulin doses) * Insulin pump removed prior to admission * Will utilize pump settings and prior inpatient glycemic data to guide initial SC insulin dosing PLAN FOR INPATIENT GLYCEMIC CONTROL: * Hold insulin pump * Basal insulin * 0-5 units bid per BSG value (see eMAR) * Bolus insulin * NovoLog per scale ACHS or Q6hrs while NPO * Goal Range: Low 110 mg/dL - High 150 mg/dL * Correction Factor: 30 mg/dL/unit * Nutritional / Prandial insulin per carb ratio of 1 unit per 5 grams CHO consumed
[2024-06-01] MEDS: SUCRALFATE 1 GM/10 ML UDC PO SCH (16:37)
--- NOTE | 2024-06-01 17:05 | Hospitalist Progress Note ---
Date of Service June 01, 2024 Assessment & Plan (1) Atrial fibrillation with RVR: Plan: -noted RVR on arrival, placed on dilt drip -appears much improved this morning, likely in setting of poor self care at home and medicaion compliance Plan: -continue metoprolol succinate 150 mg daily -continue aldactone, lisinopril, well tolerated -continue warfarin, adjust based on INR (2) Chronic systolic heart failure: Plan: -noted on echo, EF slightly decreased to 30-35% -does not appear fluid overloaded at this time Plan: -optimize GDMT -see above -add SGLT 2 inhibitor before discharge (3) Ileus: Plan: -minimal tenderness to palpation, still moving bowels per patient -per patient last BM yesterday, KUB shows generalized constipation, appears unchanged to prior imaging -no evidence of transition point or SBO at this time -CT abdomen pelvis unremarkable Plan: -miralax, senna, suppository again today (4) Adult failure to thrive: Plan: -patient has had numerous hospitalizations in regards to failure to thrive at home -appears disheveled, found by EMS with pet at door, poor living conditions -high concern given psychiatric concerns and overall condition that patient will be unable to safely return home Plan: -PT/OT ordered -discussed with rehabilitation case coordinator, filled out APS requested forms in regards to disposition -of note, over my past few days patient has showed medical capacity in regards to his medical conditions, but has not exhibited understanding or appreciation of his ability to take care of himself, and is a danger to self living on his own at this time (5) Cellulitis of left lower leg: Plan: -suspect chronic stasis dermatitis with potential superimposed cellulitis -supported by CT femur, personally interpreted -s/p 7 day course of abx Plan: -dermatology consult outpatient given recurrence (6) 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: Plan: -relatively controlled Plan: -insulin protocol -regular diet (7) PVD (peripheral vascular disease): Plan: -noted from prior, s/p left BKA amputation (8) Morbid obesity: Plan: -likely contributer to PVD and recurrent cellulitis (9) CKD (chronic kidney disease) stage 3, GFR 30-59 ml/min: Plan: -creatinine at baseline (10) NINA on CPAP: Plan: -continue CPAP (11) Cardiac defibrillator in situ: Plan: -noted (12) MDD (major depressive disorder), recurrent episode, mild: Plan: -patient has suicideal ideation without a plan, appears passive -patient is quite depressed, feels hopeless Plan: -psych consult, appreciate recs -zyprexa prn for agitation -consult spiritual care, psychology as well (13) Lymphedema: Plan: -likely contributer to cellulitis Plan: -[facility]u [facility] (14) Chronic pain syndrome: 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, 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 Plan: -continue home oxycodone -continue duloxetine 60 mg -continue pregablin 50 tid for severe neuropathic pain Plan Feeding/fluids: regular Analgesia: tylenol, dilaudid Sedation: na Thromboprophylaxis: warfarin Head up position: na Ulcer prophylaxis: na Glycemic control: insulin protocol Spontaneous breathing trial: na Bowel care: miralax, senna, suppository prn Indwelling catheter removal: na Deescalation of antibiotics: na I spent a total of 40 minutes in direct patient care, including [id number] time with the patient and/or family, reviewing medical records, ordering and reviewing diagnostic tests, and coordinating care with other healthcare providers. This time includes: history taking, physical examination, medical decision making, counseling, ECG interpretation, imaging interpretation, lab interpretation, orders, and education, excluding time spent in the performance of separately billed services. Admission and Anticipated Discharge Date Admission Date: May 24, 2024 Results & Data Results & Data Vital Signs (Past 12 Hours) Vital Signs Temp Pulse Pulse Resp BP Pulse Ox O2 Del Method 06/01/24 15:24 36.5 C 57 L 16 114/74 92 Room Air 06/01/24 13:02 71 06/01/24 11:42 36.5 C 86 16 122/82 95 Room Air 06/01/24 07:46 Room Air 06/01/24 07:43 36.4 C L 69 16 114/75 97 Room Air 06/01/24 05:55 67 (9) CKD (chronic kidney disease) stage 3, GFR 30-59 ml/min Chronic kidney disease stage 3 subtype: stage 3a (GFR 45-59) Qualified Code(s): N18.31 - Chronic kidney disease, stage 3a
[2024-06-01] MEDS: LANTUS PER UNIT CHARGE SC SCH (20:33)
[2024-06-02] MEDS: HYDROmorphone INJ 0.5 MG/0.5 ML SYR IV STA (02:44)
[2024-06-02 10:27] LABS: Calcium 8.8 mg/dl (8.6-10.3); Potassium 4.6 mmol/L (3.5-5.1)
[2024-06-02 10:33] LABS: BUN Creatinine Ratio 13.1 (10-20); Creatinine Clr Calc Pharmacy 146.2 ml/min
[2024-06-02 11:54] LABS: INR 2.6 (0.9-1.1); Prothrombin Time 25.5 Seconds (9.0-12.0)
--- NOTE | 2024-06-02 13:10 | Gastrointestinal Consultation ---
Date of Consultation June 02, 2024 Assessment & Plan (1) Ileus: (2) Epigastric pain: Plan -Patient is a poor historian. He notes chronic epigastric discomfort that is unpredictable and intermittent. He has no evidence of GI bleeding. He notes he moved his bowels and is passing gas. His weight is up since admission. At the present time, his symptoms are vague and it does not appear he has emergent GI needs. Would continue to monitor his symptoms and decide further pending his progress moving forward. Continue PPI at this time. Monitor LFTs & CBC. Supervising Physician Co-Signing Physician Notes Above reviewed with ARCADIO Rodriguez. Patient is a vague historian. He complains of some epigastric pain which she describes predominantly as cramping. This is not a new problem he states has been present for years. He was investigated with an upper and lower endoscopy elsewhere. Does not recall ever having been an ulcer. He states he treats this with hyoscamine. He denies any hematemesis melena or hematochezia. His abdominal examination is relatively benign. No tenderness in the epigastric or right upper quadrant Clinically does not appear this is a new issue and has been investigated in the past. His appetite appears to be more motivational than related to the pain he states food does not aggravate his symptoms either better or worse. Recommend at this point treating with a PPI. Follow expectantly. No plan for endoscopy at this time. History of Present Illness Reason for Consultation: Epigastric pain; inability to tolerate food Attending Physician: Isaiah Joseph MD History of Present Illness Patient is a 58 yo male hospitalized with multiple medical issues at this time. GI has been consulted regarding epigastric pain. He notes that he has had this intermittent epigastric pain for years. He notes he previously had an EGD & colonoscopy to investigate. He notes there were no findings. He takes Omeprazole at home. He is not a very good historian and was unable to really explain furt her. His weight is up several pounds from admission. I'm unclear from my conversation with him regarding how much food he's eating. He denies GI bleeding. No heartburn at this time. No pertinent family history. He is on Coumadin for his Afib. Imaging suggests an ileus. He notes he did have a bowel movement and passed gas without issue. No lower abdominal pain. Allergies Allergy/AdvReac Type Severity Reaction Status Date / Time benzonatate AdvReac Intermediate choking, Verified 01/07/24 13:17 gagging Home Medications Medication Instructions Recorded Confirmed Type Lantus Solostar U-100 Insulin 40 units SC BID 02/08/24 02/09/24 History acetaminophen 325 mg tablet 650 mg PO QID PRN Pain 02/08/24 05/24/24 History (Tylenol) aspirin 81 mg tablet,delayed 81 mg PO DAILY 02/08/24 05/24/24 History release atorvastatin 80 mg tablet 80 mg PO DAILY 02/08/24 05/24/24 History ergocalciferol (vitamin D2) 50,000 50,000 unit PO WK 02/08/24 05/24/24 History unit tablet ferrous sulfate 325 mg (65 mg 325 mg PO BID 02/08/24 05/24/24 History iron) tablet hyoscyamine sulfate 0.125 mg tablet 0.125 mg PO Q4H PRN Abdominal Pain 02/08/24 05/24/24 History insulin aspart U-100 100 unit/mL 10 unit subcut AC 02/08/24 02/09/24 History subcutaneous solution (Novolog U-100 Insulin aspart) levothyroxine 88 mcg tablet 88 mcg PO DAILY 02/08/24 05/24/24 History metoprolol tartrate 50 mg tablet 50 mg PO BID 02/08/24 05/24/24 History multivitamin,ji-xykv-Bz-FA-min 1 tab PO DAILY 02/08/24 02/09/24 History nystatin 1 applic EXT UD 02/08/24 05/24/24 History omeprazole 20 mg capsule,delayed 20 mg PO DAILY 02/08/24 05/24/24 History release oxycodone 10 mg tablet 10 mg PO Q4H PRN Pain, Severe 02/08/24 05/24/24 History potassium chloride 20 mEq 20 meq PO BID 02/08/24 05/24/24 History tablet,extended release(part/cryst) pregabalin 50 mg capsule 50 mg PO BID 02/08/24 05/24/24 History sitagliptin phosphate 50 mg tablet 50 mg PO DAILY 02/08/24 05/24/24 History (Januvia) spironolactone 25 mg tablet 25 mg PO DAILY 02/09/24 05/24/24 History triamcinolone acetonide 0.1 % 1 applic topical TID 02/09/24 05/24/24 History lotion warfarin 3 mg tablet 3 mg PO DAILY 02/09/24 05/24/24 History ammonium lactate 12 % lotion 1 applic topical DAILY 05/24/24 05/24/24 History betamethasone dipropionate 0.05 % 1 applic topical BID 05/24/24 05/24/24 History topical cream loratadine 10 mg tablet 10 mg PO DAILY 05/24/24 05/24/24 History torsemide 20 mg tablet 20 mg PO BID 05/24/24 05/24/24 History Patient History Medical History Osteomyelitis of foot, right, acute Diabetes Acute on chronic combined systolic and diastolic CHF (congestive heart failure) Depression with suicidal ideation Acute osteomyelitis of left foot T2DM (type 2 diabetes mellitus) CHF (congestive heart failure) Acute on chronic combined systolic (congestive) and diastolic (congestive) heart failure Diabetic ulcer of right foot Sustained ventricular tachycardia Pneumonia due to COVID-19 virus SARS-CoV-2 positive Sepsis Cellulitis of left lower leg Diabetic ulcer of left heel associated with diabetes mellitus due to underlying condition, limited to breakdown of skin Acute on chronic renal failure Acute hypoxemic respiratory failure Sleep apnea BIPAP Rectal bleeding Depression Deformity of foot Adams fracture Base of left fifth metatarsal, nonhealing x years Diabetic ulcer of left foot associated with type 2 diabetes mellitus, with fat layer exposed Hx of sepsis 06/2019 Arthritis Venous stasis ulcer of right lower leg with edema of right lower leg Hypokalemia Bacteremia due to group B Streptococcus Lymphedema Sustained VT (ventricular tachycardia) GERD (gastroesophageal reflux disease) Hx of osteomyelitis Hx of myocardial infarction found on testing Asthma well controlled, daily custodial 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 CKD (chronic kidney disease) stage 3, GFR 30-59 ml/min Surgical History History of esophagogastroduodenoscopy (EGD) H/O foot surgery LEFT FOOT ULCER DEBRIDEMENT H/O cardiac radiofrequency ablation OCTOBER 2019 ([facility]) [facility] History of cardiac cath V. tach -- no stent. 06/2019. unsure where it was done History of sinus surgery Hx of tonsillectomy History of colonoscopy Hx of amputation of lesser toe H/O shoulder surgery left Family History Sister Family history of diabetes mellitus 2 Grandmother (Maternal) Family history of diabetes mellitus Grandfather (Maternal) Family history of diabetes mellitus Father Cancer Mother Cancer Other No family history of adverse response to anesthesia Social History Smoking Status: Never smoker Second Hand Exposure: No; Do You Dip or Chew Tobacco: No; Tobacco Cessation Education Requested by Patient: No Hx Alcohol Use: No Hx Substance Use: No Preferred Language: French Communication Ability: Effective Sprigger Required: No Beliefs That Will Affect Care: Spiritual marital status: Current Living Situation: Alone current occupational status: disabled How many Children do You have: 3 Other Information That Helps Us Care for You: No Feels Safe at Home: Yes Safety Concerns: Feels Safe At This Time Assistive Devices: Prosthesis, Scooter/Electric Scooter and Wheelchair Review of Systems Constitutional: no fever and no chills Gastrointestinal: + abdominal pain Physical Exam Constitutional: well developed Respiratory: normal respiratory effort Gastrointestinal (Abdomen): Inspection/Auscultation: + abdomen distended Percussion/Palpation: abdomen soft; abdomen nontender Psychiatric: Orientation: alert and oriented x 3 Results & Data Vital Signs (Past 12 Hours) Vital Signs Temp Pulse Pulse Resp BP BP Pulse Ox 06/02/24 11:51 36.6 C 69 16 117/69 90 06/02/24 08:05 35.6 C L 78 16 122/62 91 06/02/24 07:34 06/02/24 05:35 73 06/02/24 04:00 36.6 C 63 18 118/68 93 O2 Del Method 06/02/24 11:51 Room Air 06/02/24 08:05 Room Air 06/02/24 07:34 Room Air 06/02/24 05:35 06/02/24 04:00 Room Air PG Care Time/CCT Total # of Minutes Spent Total Time Spent with Patient: Total time spent is greater than 50% in coordination of care (as documented) at patient's floor/unit and/or counseling patient: Coding Level of Care Code 27155 IN/OBS CONSULT LVL 4,60M Diagnoses Ileus K56.7 Epigastric pain R10.13
[2024-06-02] MEDS: ADVANCED PROBIOTIC 625 MG CAPSULE PO SCH (14:26)
[2024-06-02] MEDS: MEROPENEM 500 MG in SYRINGE 0 ML IV SCH (15:25)
--- NOTE | 2024-06-02 19:04 | Hospitalist Progress Note ---
Date of Service June 02, 2024 Assessment & Plan (1) Atrial fibrillation with RVR: Plan: -noted RVR on arrival, placed on dilt drip -appears much improved this morning, likely in setting of poor self care at home and medicaion compliance Plan: -continue metoprolol succinate 150 mg daily -continue aldactone, lisinopril, well tolerated -continue warfarin, adjust based on INR 2/6 Heart rate stable INR 2.6 Resume Coumadin (2) Chronic systolic heart failure: Plan: -noted on echo, EF slightly decreased to 30-35% -does not appear fluid overloaded at this time Plan: -optimize GDMT -see above -add SGLT 2 inhibitor before discharge 2/6 On spironolactone May need Lasix IV (3) Ileus: Plan: -minimal tenderness to palpation, still moving bowels per patient -per patient last BM yesterday, KUB shows generalized constipation, appears unchanged to prior imaging -no evidence of transition point or SBO at this time -CT abdomen pelvis unremarkable Plan: -miralax, senna, suppository again today Resolved 2/6 Reporting epigastric pain Carafate added to Protonix --> Epigastric pain resolved GI consulted, no plans for EGD at this point (4) Adult failure to thrive: Plan: -patient has had numerous hospitalizations in regards to failure to thrive at home -appears disheveled, found by EMS with pet at door, poor living conditions -high concern given psychiatric concerns and overall condition that patient will be unable to safely return home Plan: -PT/OT ordered -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 with piano case maker, filled out APS requested forms in regards to disposition -of note, over my past few days patient has showed medical capacity in regards to his medical conditions, but has not exhibited understanding or appreciation of his ability to take care of himself, and is a danger to self living on his own at this time (5) Cellulitis of left lower leg: Plan: Possible infected chronic right foot wound/ulcer right foot cellulitis, right lower extremity cellulitis Wound examined with wound care nurse at the bedside Blood cultures negative Wound culture ordered today Has completed 7-day course of IV cefepime however, patient's lower leg, right foot still with significant edema, and moderate erythema, warmth, mild tenderness Past microbiologic data reviewed Patient grew Pseudomonas, Morganella in January 2024 which was drug-resistant Start IV meropenem Consult podiatry Consult infectious disease (6) 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: Plan: -relatively controlled Plan: -insulin protocol -regular diet (7) PVD (peripheral vascular disease): Plan: -noted from prior, s/p left BKA amputation (8) Morbid obesity: Plan: -likely contributer to PVD and recurrent cellulitis (9) CKD (chronic kidney disease) stage 3, GFR 30-59 ml/min: Plan: -creatinine at baseline (10) NINA on CPAP: Plan: -continue CPAP (11) Cardiac defibrillator in situ: Plan: -noted (12) MDD (major depressive disorder), recurrent episode, mild: Plan: -patient has suicideal ideation without a plan, appears passive -patient is quite depressed, feels hopeless Plan: -psych consult, appreciate recs -zyprexa prn for agitation -consult spiritual care, psychology as well (13) Lymphedema: Plan: -likely contributer to cellulitis Plan: -[facility] 06/02 On spironolactone May need IV Lasix (14) Chronic pain syndrome: 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, 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 Plan: -continue home oxycodone -continue duloxetine 60 mg -continue pregablin 50 tid for severe neuropathic pain Plan Feeding/fluids: regular Analgesia: tylenol, dilaudid Sedation: na Thromboprophylaxis: warfarin Head up position: na Ulcer prophylaxis: na Glycemic control: insulin protocol Spontaneous breathing trial: na Bowel care: miralax, senna, suppository prn Indwelling catheter removal: na Deescalation of antibiotics: na Admission and Anticipated Discharge Date Admission Date: May 24, 2024 Subjective Follow-up for abdominal pain, right lower extremity cellulitis, possible infected chronic right foot wound/ulcer, etc. Seen resting in bed, comfortable, not in distress More awake and alert States he actually feels improved today Abdominal pain improving Able to tolerate medications and liquids better today No nausea or vomiting Reports mild discomfort over the right lower extremity and foot No other new symptoms Review of Systems Review of Systems: all noted and negative except for above Physical Exam Physical Exam: General- oriented x 3, not in distress, speaks in sentences with no effort or accessory muscle use Eyes- anicteric Neck- no JVD Lungs- clear breath sounds bilaterally, no rales/wheezes Heart- normal rate, regular rhythm; no murmurs Abdomen- normal bowel sounds, nondistended, soft, nontender Extremities- Right lower extremity: Lower leg: Grade 2 edema with mild to moderate erythema, mild warmth, no tenderness Foot: Large wound/ulcer on the plantar aspect, with some bleeding, some granulation tissue is noted with mild surrounding erythema Left lower extremity: (+) BKA grade 1 edema Neuro- alert, oriented x 3; no gross focal neurologic deficits Skin- warm & dry Results & Data Results & Data Vital Signs (Past 12 Hours) Vital Signs Temp Pulse Pulse Resp BP Pulse Ox O2 Del Method 06/02/24 14:49 36.6 C 74 16 124/72 95 Room Air 06/02/24 13:04 74 06/02/24 11:51 36.6 C 69 16 117/69 90 Room Air 06/02/24 08:05 35.6 C L 78 16 122/62 91 Room Air 06/02/24 07:34 Room Air all noted and reviewed including below (9) CKD (chronic kidney disease) stage 3, GFR 30-59 ml/min Chronic kidney disease stage 3 subtype: stage 3a (GFR 45-59) Qualified Code(s): N18.31 - Chronic kidney disease, stage 3a
[2024-06-02] MEDS: WARFARIN SOD 2 MG TAB PO STA (20:25)
[2024-06-02] MEDS: HYDROmorphone HCL 2 MG TAB PO STA (23:39)
--- NOTE | 2024-06-03 05:06 | Podiatry Consultation ---
Date of Consultation June 03, 2024 Assessment & Plan (1) Acute osteomyelitis of right calcaneus: (2) PVD (peripheral vascular disease): (3) Diabetic ulcer of right foot associated with diabetes mellitus due to underlying condition, with necrosis of bone: Diabetic foot ulcer location: other Qualified Code(s): E08.621 - Diabetes mellitus due to underlying condition with foot ulcer; L97.514 - Non- pressure chronic ulcer of other part of right foot with necrosis of bone (4) History of below-knee amputation of left lower extremity: Plan Diabetic ulcer of the right foot with underlying osteomyelitis of the calcaneus: - Order placed for Xray of right for for comparison to 02/08/24 images to evaluate for any further signs of erosion/osteomyelitis to the calcaneus. X-ray results reviewed with concern for osteomyelitis of the calcaneus. With exposed bone to the wound bed and extensive open wound I do not believe any further imaging or bone biopsy is warranted to further confirm diagnosis of osteomyelitis. - Order: ESR, CRP Non-salvageable right foot. Recommend amputation of the RLE. Explained to patient that his right foot would is not likely to heal and no further surgical intervention to the foot is recommended. Pt concerned for quality of life following b/l amputation which is understandable. Would recommend discussion with social work/case management regarding placement with [facility] facility. I will continue to follow patient throughout his hospital course and recommend ID consult should he refuse amputation and close followup with wound care following discharge. Thank you for consulting podiatry to aid in the care of this patient. History of Present Illness Attending Physician: Isaiah Joseph MD History of Present Illness Patient presents to [facility] on 05/23/2024 following fall in home. Pt is poor historian. Lives at home alone. 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 During that hospital stay he was seen by podiatry, ID, vascular surgery and nephrology. Underwent wound debridement and partial calcanectomy of the right LE on 02/09/2024. Bone pathology positive for OM and he was discharged on IV abx. Patient currently admitted to [facility] with 2 weeks ago for sepsis secondary to right lower extremity osteomyelitis and infection. He was transferred to [facility] and underwent wound debridement, right foot abscess drainage and 3 compartment fasciotomy of the right foot. Patient is currently living at home with alone. He does have home health care coming in approximately every third day for dressing changes of the right foot. Sees Dr. Mckenzie in [facility] regular evaluation of his wound of the right foot. Podiatry consulted to evaluate right foot wound with possible infection. Allergies Allergy/AdvReac Type Severity Reaction Status Date / Time benzonatate AdvReac Intermediate choking, Verified 01/07/24 13:17 gagging Home Medications Medication Instructions Recorded Confirmed Type Lantus Solostar U-100 Insulin 40 units SC BID 02/08/24 02/09/24 History acetaminophen 325 mg tablet 650 mg PO QID PRN Pain 02/08/24 05/24/24 History (Tylenol) aspirin 81 mg tablet,delayed 81 mg PO DAILY 02/08/24 05/24/24 History release atorvastatin 80 mg tablet 80 mg PO DAILY 02/08/24 05/24/24 History ergocalciferol (vitamin D2) 50,000 50,000 unit PO WK 02/08/24 05/24/24 History unit tablet ferrous sulfate 325 mg (65 mg 325 mg PO BID 02/08/24 05/24/24 History iron) tablet hyoscyamine sulfate 0.125 mg tablet 0.125 mg PO Q4H PRN Abdominal Pain 02/08/24 05/24/24 History insulin aspart U-100 100 unit/mL 10 unit subcut AC 02/08/24 02/09/24 History subcutaneous solution (Novolog U-100 Insulin aspart) levothyroxine 88 mcg tablet 88 mcg PO DAILY 02/08/24 05/24/24 History metoprolol tartrate 50 mg tablet 50 mg PO BID 02/08/24 05/24/24 History multivitamin,dv-lmwk-Yi-FA-min 1 tab PO DAILY 02/08/24 02/09/24 History nystatin 1 applic EXT UD 02/08/24 05/24/24 History omeprazole 20 mg capsule,delayed 20 mg PO DAILY 02/08/24 05/24/24 History release oxycodone 10 mg tablet 10 mg PO Q4H PRN Pain, Severe 02/08/24 05/24/24 History potassium chloride 20 mEq 20 meq PO BID 02/08/24 05/24/24 History tablet,extended release(part/cryst) pregabalin 50 mg capsule 50 mg PO BID 02/08/24 05/24/24 History sitagliptin phosphate 50 mg tablet 50 mg PO DAILY 02/08/24 05/24/24 History (Januvia) spironolactone 25 mg tablet 25 mg PO DAILY 02/09/24 05/24/24 History triamcinolone acetonide 0.1 % 1 applic topical TID 02/09/24 05/24/24 History lotion warfarin 3 mg tablet 3 mg PO DAILY 02/09/24 05/24/24 History ammonium lactate 12 % lotion 1 applic topical DAILY 05/24/24 05/24/24 History betamethasone dipropionate 0.05 % 1 applic topical BID 05/24/24 05/24/24 History topical cream loratadine 10 mg tablet 10 mg PO DAILY 05/24/24 05/24/24 History torsemide 20 mg tablet 20 mg PO BID 05/24/24 05/24/24 History Patient History Medical History Osteomyelitis of foot, right, acute Diabetes Acute on chronic combined systolic and diastolic CHF (congestive heart failure) Depression with suicidal ideation Acute osteomyelitis of left foot T2DM (type 2 diabetes mellitus) CHF (congestive heart failure) Acute on chronic combined systolic (congestive) and diastolic (congestive) heart failure Diabetic ulcer of right foot Sustained ventricular tachycardia Pneumonia due to COVID-19 virus SARS-CoV-2 positive Sepsis Cellulitis of left lower leg Diabetic ulcer of left heel associated with diabetes mellitus due to underlying condition, limited to breakdown of skin Acute on chronic renal failure Acute hypoxemic respiratory failure Sleep apnea BIPAP Rectal bleeding Depression Deformity of foot Adams fracture Base of left fifth metatarsal, nonhealing x years Diabetic ulcer of left foot associated with type 2 diabetes mellitus, with fat layer exposed Hx of sepsis 06/2019 Arthritis Venous stasis ulcer of right lower leg with edema of right lower leg Hypokalemia Bacteremia due to group B Streptococcus Lymphedema Sustained VT (ventricular tachycardia) GERD (gastroesophageal reflux disease) Hx of osteomyelitis Hx of myocardial infarction found on testing Asthma well controlled, 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 CKD (chronic kidney disease) stage 3, GFR 30-59 ml/min Surgical History History of esophagogastroduodenoscopy (EGD) H/O foot surgery LEFT FOOT ULCER DEBRIDEMENT H/O cardiac radiofrequency ablation OCTOBER 2019 ([facility]) AT [facility] History of cardiac cath V. tach -- no stent. 06/2019. unsure where it was done History of sinus surgery Hx of tonsillectomy History of colonoscopy Hx of amputation of lesser toe H/O shoulder surgery left Family History Sister Family history of diabetes mellitus 2 Grandmother (Maternal) Family history of diabetes mellitus Grandfather (Maternal) Family history of diabetes mellitus Father Cancer Mother Cancer Other No family history of adverse response to anesthesia Social History Smoking Status: Never smoker Second Hand Exposure: No; Do You Dip or Chew Tobacco: No; Tobacco Cessation Education Requested by Patient: No Hx Alcohol Use: No Hx Substance Use: No Preferred Language: Maltese Communication Ability: Effective Hat Lining Paster Required: No Beliefs That Will Affect Care: Spiritual marital status: Current Living Situation: Alone current occupational status: disabled How many Children do You have: 3 Other Information That Helps Us Care for You: No Feels Safe at Home: Yes Safety Concerns: Feels Safe At This Time Assistive Devices: Prosthesis, Scooter/Electric Scooter and Wheelchair Review of Systems Review of Systems: Denies nausea, vomiting, fever, chills, shortness of breath, chest pain, malaise. Denies pain in the right foot. She reports recent increased swelling in the bilateral lower extremity which is inhibited the use of his prosthetic for the left lower extremity. Review of systems otherwise negative detailed in history of present illness. Physical Exam Physical Exam: Const: Appears well developed and well nourished. No signs of acute distress present. CV: Extremities: No cyanosis Capillary refill time is less than 3 seconds all digits of the right foot. Posterior tibial and dorsalis pedis pulses are lightly right foot palpable right foot. Lymph: No palpable or visible regional lymphadenopathy. Skin: Chronic venous stasis changes to the right lower leg with open wound. Neuro: Loss of protective sensation to the right foot Psych: Mood/Affect: Mood is normal. Affect is normal. Cognition: Orientation is intact to person, place and time. Focused lower extremity musculoskeletal exam: Leg: No pain with compression of the calf muscle. Right ankle: Normal to inspection and palpation. No swelling. No tenderness. Motor strength is intact. Range of motion pain-free and unlimited. Right foot: Large ulceration of the plantar aspect of the right foot. Wound probes to the level of bone at the plantar calcaneus remnant in several location s. Wound bed is mixed granular, fibrotic, fascial, slough and bone tissue. Significant purulent drainage to the wound bed noted on dressing removal however unable to express any drainage. wound probes 3 cm along the lateral wall of the calcaneus. Results & Data Vital Signs (Past 12 Hours) Vital Signs Temp Pulse Pulse Resp BP Pulse Ox O2 Del Method 06/03/24 03:05 36.5 C 63 18 105/67 93 Room Air 06/03/24 00:07 Room Air 06/02/24 23:00 36.5 C 72 18 115/74 94 Room Air 06/02/24 21:49 63 06/02/24 19:00 36.6 C 69 18 117/62 96 Room Air Diagnostic Findings X-ray right foot 02/08/2024: IMPRESSION: Tiny questionable bone erosion is seen in the distal aspect of the first digit proximal phalanx. There is also irregular bony remodeling about the heel at the level of a large soft tissue ulcer. Osteomyelitis cannot be excluded, if further evaluation is desired, MRI can be performed. CT right foot 02/09/2024: IMPRESSION: Findings compatible with osteomyelitis about a large heel ulcer. No drainable abscess is seen. Duplex arterial Doppler 02/09/2024: IMPRESSION: 1. The distal superficial femoral artery and the distal popliteal artery were not visualized and patency is not confirm. 2. The proximal posterior tibial and peroneal arteries are patent. The mid to distal portions of the vessels are not identified and patency could not be assessed. 3. The anterior tibial artery and the dorsalis pedis artery are patent. PG Care Time/CCT Total # of Minutes Spent Total Time Spent with Patient: Total time spent is greater than 50% in coordination of care (as documented) at patient's floor/unit and/or counseling patient: Coding Level of Care Code INT OBSERVATION CARE 70M LVL 3 Diagnoses Acute osteomyelitis of right calcaneus M86.171 PVD (peripheral vascular disease) I73.9 Diabetic ulcer of other part of right foot associated with diabetes mellitus due to underlying condition, with necrosis of bone E08.621; L97.514 Diabetic foot ulcer location: other History of below-knee amputation of left lower extremity Z89.512
[2024-06-03 06:50] LABS: BUN Creatinine Ratio 15.2 (10-20); Creatinine Clr Calc Pharmacy 155.3 ml/min; Potassium 4.3 mmol/L (3.5-5.1)
[2024-06-03 07:06] LABS: INR 2.3 (0.9-1.1); Prothrombin Time 23.5 Seconds (9.0-12.0)
--- NOTE | 2024-06-03 07:39 | XRay Report ---
EXAM: XR foot RT 2V CLINICAL HISTORY: Osteomyelitis right calcaneus. TECHNIQUE: X-ray images of the right foot were obtained in anteroposterior (AP), and lateral projections. COMPARISON: No prior studies are available for comparison. FINDINGS: Large cutaneous ulcer is seen involving the hind and midfoot. Destructive/resorptive bony changes is seen involving the inferior surface of the calcaneus and possibly cuboid bone suggesting osteomyelitis/Charcot foot. Heterogenous calcifications at the heel region. Defect of the distal phalanx of the big toe. Bony osteopenia and lucent areas of the tibiotalar and intertarsal articulations. Atheromatous calcifications of the foot vessels. IMPRESSION: 1. The above-described signs are suggestive of diabetic foot with soft tissue and bony changes as described suggesting osteomyelitis/Charcot foot correlation with previous studies and the clinical data is advised. 2. MRI is also advised if clinically warranted. Disclaimer: A subtle bone abnormality or fracture may not be readily apparent on X-rays, thus clinical correlation and further imaging including follow-up CT, MRI, or follow-up X-rays are advised as needed. Electronically signed by Chelsea Ayers 06-03-2024 07:39 AM
[2024-06-03 08:55] LABS: C Reactive Protein 1.61 mg/dl (0-0.5)
--- NOTE | 2024-06-03 10:56 | Pharmacy Report ---
Pharmacy Glycemic Short Note 2 - Date of Service June 03, 2024 - Glycemic Short BSG Results (Last 24 hours): 06/02/24 06/02/24 06/02/24 12:14 17:00 21:28 Glucose POC Glucose 167 H 216 H 169 H 06/03/24 06/03/24 05:32 08:14 Glucose 142 H POC Glucose 142 H OUTPATIENT ANTIDIABETIC REGIMEN: * Novolog pump * pre-meal target range: 90-150 mg/dL * post-meal target range: <220 mg/dL * Carb ratio: 1:3 g/unit * Correction factor: 1:30 unit/mg/dL * Basal rate: 7 units/hr (6155-1985), 6 units/hr (7881-3804), 7 units/hr (2169-7756) - 155 units/day HbA1c: 7.5% (02/09/24), 8.1% (04/2024 per H&P) ASSESSMENT: 06/03: * Patient received total of 16 units of insulin yesterday, low dose basal insulin resumed * Fasting BSG 142 mg/dL, continue scale for basal for now - may need to titrate up once diet improves more * no change to CF/CR 06/01: * Patient did not receive any insulin yesterday, no carbs documented * Fasting BSG 114 mg/dL - held AM basal * Lunch BSG trending up to 205 mg/dL, despite no PO intake at breakfast - will add conservative basal dose for HS in case BSGs trend upward. It has been a few days since any basal insulin given so may start to see increase in blood sugars 05/30: * Ben received no insulin yesterday * Fasting BSG this AM within goal range, continue to hold basal until PO appetite improves. * Unable to assess NovoLog since patient has not been eating due to nausea/abdominal cramping. 05/29: * Received 25 units of basal yesterday and 14 more units of bolus. BSGs were 24-60-098-104 mg/dL. * Patient continues to not eat today per RN. BSGs 108 and 104 mg/dL. Will hold basal until patient eating again. Considered low dose basal just so some is on board but RN concerned given hypoglycemia yesterday. * No changes to Novolog. 05/28: * Received 60 units of insulin yesterday, 50 of which were basal. BSGs were [phone] mg/dL. * Fasting BSG down to 90 mg/dL this AM. Reduced basal. * Lunchtime hypoglycemia at 52 mg/dL today. Required 45 g of carbs to bring BSG up to 76 mg/dL. Thankfully, patient was asymptomatic during this event. Unsure of reasoning for hypoglycemia but suspect basal overload combined with tight carb ratio. Will loosen carb ratio and hold lunch Novolog. Holding PM basal dose and will reassess tomorrow morning. 05/27: * BSGs have been fairly stable for the past 48 hours. * Pt refused his morning insulin yesterday, so BSGs have been trending up today, but still reasonable. * Pt has requested a regular diet rather than a diabetic diet. * Slight adjustment made to Lantus dosing this morning in an attempt to avoid hy poglycemia and discourage pt refusal of doses. * Pharmacy will continue to follow and adjust regimen as indicated. 05/24: * CG is a 58 year old male who presents to ED s/p mechanical fall out of wheelch air * Patient is well-known to pharmacy glycemic service s/p multiple admissions/consultations * Reasonably well-controlled T2DM as an outpatient with Novolog insulin pump (fairly large daily insulin doses) * Insulin pump removed prior to admission * Will utilize pump settings and prior inpatient glycemic data to guide initial SC insulin dosing PLAN FOR INPATIENT GLYCEMIC CONTROL: * Hold insulin pump * Basal insulin * 0-5 units bid per BSG value (see eMAR) * Bolus insulin * NovoLog per scale ACHS or Q6hrs while NPO * Goal Range: Low 110 mg/dL - High 150 mg/dL * Correction Factor: 30 mg/dL/unit * Nutritional / Prandial insulin per carb ratio of 1 unit per 5 grams CHO consumed
--- NOTE | 2024-06-03 10:57 | Gastroenterology Progress Note ---
Date of Service June 03, 2024 Assessment & Plan (1) Epigastric pain: Plan: -Continue Protonix while hospitalized. Increase his home dose of Omeprazole on discharge. -If pain worsens/returns/changes, he can feel free to follow-up with our outpatient clinic for this chronic intermittent problem. Admission and Anticipated Discharge Date Admission Date: May 24, 2024 Supervising Physician Co-Signing Physician Notes Agree with above. No plans for investigations at this time. Can follow-up if he has continued issues or reconsult us. GI signs of Subjective GI following for epigastric abdominal pain. He notes he is not having any discomfort. He notes he feels better today and is eating de and sausage at the time of my visit. No new GI complaints. Review of Systems Gastrointestinal: no abdominal pain, no heartburn and no blood in stools Physical Exam Gastrointestinal (Abdomen): normal bowel sounds, soft, nontender, no hepatosplenomegaly Results & Data Results & Data Vital Signs (Past 12 Hours) Vital Signs Temp Pulse Pulse Resp BP BP Pulse Ox 06/03/24 07:39 36.4 C L 72 18 118/75 95 06/03/24 07:25 06/03/24 05:44 61 06/03/24 03:05 36.5 C 63 18 105/67 93 06/03/24 00:07 06/02/24 23:00 36.5 C 72 18 115/74 94 O2 Del Method 06/03/24 07:39 Room Air 06/03/24 07:25 Room Air 06/03/24 05:44 06/03/24 03:05 Room Air 06/03/24 00:07 Room Air 06/02/24 23:00 Room Air PG Care Time/CCT Total # of Minutes Spent Total Time Spent with Patient: Total time spent is greater than 50% in coordination of care (as documented) at patient's floor/unit and/or counseling patient: Coding Level of Care Code 48985 SUB INP/OBS CARE 2/35MIN Diagnoses Epigastric pain R10.13
--- NOTE | 2024-06-03 13:47 | Infectious Disease Consult ---
Date of Service June 03, 2024 Telehealth Information I performed this visit using a real-time telehealth connection between my location and the patients location ([facility]). After connecting through interactive tele-video, patient was identified by name and date of and/or wristband check.Patient (or authorized healthcare it sales representative) was informed that this was a telemedicine visit and it was being conducted confidentially over secure lines. My office door was closed and no one else was present in the room with me.Patient (or authorized healthcare it sales representative) provided consent to proceed with the visit, expressed an understanding of privacy and security of the telemedicine visit, and gave permission to have a hospital it sales representative in the room in order to assist with the visit and to conduct portions of the visit, as needed. I informed the patient (or authorized healthcare it sales representative) that I reviewed their record and presented the opportunity for them to ask any questions regarding the visit today. The patient agreed to participate. Assessment & Plan (1) Diabetic ulcer of right foot associated with diabetes mellitus due to underlying condition, with necrosis of bone: (2) Status post incision and drainage: Plan: at an outside facility (3) Osteomyelitis of ankle and foot: Plan: likely chronic at this point (4) History of below-knee amputation of left lower extremity: Plan - As per the pictures in the chart and based on vitals, I couldn't appreciate active infection of the Rt heel wound. So, if no local cellulitis is appreciated by the primary team, I would recommend monitoring off of antibiotics. The patient will likely require amputation. - As for Lt BKA stump cellulitis, if there is still evidence of cellulitis, consider treating with vancomycin. - Thank you for consulting ID. History of Present Illness History of Present Illness Mr. Lyle is a 58 yo man with medical hx of HTN, type 2 diabetes, OHS on bipap at night, HFrEF (EF 35%, TTE 2023), hx VT status post ablation and ICD, A-fib, bronchial asthma, morbid obesity and hx of diabetic foot ulcers bilateral lower extremities status post left BKA who was admitted to [facility] because of Lt BKA stump cellulitis on 05/24. He was also recently admitted to [facility], [place], [place] for sepsis secondary to infected Rt heal diabetic foot wound which required I&D and was sent home with no antibiotics. The reason for the current admission is the Lt BKA stump cellulitis. He mentioned that the redness and swelling of his LT BKA started around one month prior to presentation and reached up to his thigh. On presentation, he was also noticed to have Afib with RVR. Ct Lt lower extremity was performed on admission which showed diffuse soft tissue edema and fat stranding but no abscess or osteomyelitis of the femur. He received multiple antibiotics over the last 3-4 days after admission and per his report, the cellulitis Lt BKA stump resolved. Yesterday, he was started on Cecile penem for suspected Rt heel infection. He was further assessed by podiatry for right heel infection who think that the Rt leg in not salvageable and might require amputation. The ID team was consulted to help guide antibiotics for infected Rt heel diabetic foot ulcer. Allergies Allergy/AdvReac Type Severity Reaction Status Date / Time benzonatate AdvReac Intermediate choking, Verified 01/07/24 13:17 gagging Home Medications Medication Instructions Recorded Confirmed Type Lantus Solostar U-100 Insulin 40 units SC BID 02/08/24 02/09/24 History acetaminophen 325 mg tablet 650 mg PO QID PRN Pain 02/08/24 05/24/24 History (Tylenol) aspirin 81 mg tablet,delayed 81 mg PO DAILY 02/08/24 05/24/24 History release atorvastatin 80 mg tablet 80 mg PO DAILY 02/08/24 05/24/24 History ergocalciferol (vitamin D2) 50,000 50,000 unit PO WK 02/08/24 05/24/24 History unit tablet ferrous sulfate 325 mg (65 mg 325 mg PO BID 02/08/24 05/24/24 History iron) tablet hyoscyamine sulfate 0.125 mg tablet 0.125 mg PO Q4H PRN Abdominal Pain 02/08/24 05/24/24 History insulin aspart U-100 100 unit/mL 10 unit subcut AC 02/08/24 02/09/24 History subcutaneous solution (Novolog U-100 Insulin aspart) levothyroxine 88 mcg tablet 88 mcg PO DAILY 02/08/24 05/24/24 History metoprolol tartrate 50 mg tablet 50 mg PO BID 02/08/24 05/24/24 History multivitamin,px-irww-Rq-FA-min 1 tab PO DAILY 02/08/24 02/09/24 History nystatin 1 applic EXT UD 02/08/24 05/24/24 History omeprazole 20 mg capsule,delayed 20 mg PO DAILY 02/08/24 05/24/24 History release oxycodone 10 mg tablet 10 mg PO Q4H PRN Pain, Severe 02/08/24 05/24/24 History potassium chloride 20 mEq 20 meq PO BID 02/08/24 05/24/24 History tablet,extended release(part/cryst) pregabalin 50 mg capsule 50 mg PO BID 02/08/24 05/24/24 History sitagliptin phosphate 50 mg tablet 50 mg PO DAILY 02/08/24 05/24/24 History (Januvia) spironolactone 25 mg tablet 25 mg PO DAILY 02/09/24 05/24/24 History triamcinolone acetonide 0.1 % 1 applic topical TID 02/09/24 05/24/24 History lotion warfarin 3 mg tablet 3 mg PO DAILY 02/09/24 05/24/24 History ammonium lactate 12 % lotion 1 applic topical DAILY 05/24/24 05/24/24 History betamethasone dipropionate 0.05 % 1 applic topical BID 05/24/24 05/24/24 History topical cream loratadine 10 mg tablet 10 mg PO DAILY 05/24/24 05/24/24 History torsemide 20 mg tablet 20 mg PO BID 05/24/24 05/24/24 History Patient History Medical History Osteomyelitis of foot, right, acute Diabetes Acute on chronic combined systolic and diastolic CHF (congestive heart failure) Depression with suicidal ideation Acute osteomyelitis of left foot T2DM (type 2 diabetes mellitus) CHF (congestive heart failure) Acute on chronic combined systolic (congestive) and diastolic (congestive) heart failure Diabetic ulcer of right foot Sustained ventricular tachycardia Pneumonia due to COVID-19 virus SARS-CoV-2 positive Sepsis Cellulitis of left lower leg Diabetic ulcer of left heel associated with diabetes mellitus due to underlying condition, limited to breakdown of skin Acute on chronic renal failure Acute hypoxemic respiratory failure Sleep apnea BIPAP Rectal bleeding Depression Deformity of foot Adams fracture Base of left fifth metatarsal, nonhealing x years Diabetic ulcer of left foot associated with type 2 diabetes mellitus, with fat layer exposed Hx of sepsis 06/2019 Arthritis Venous stasis ulcer of right lower leg with edema of right lower leg Hypokalemia Bacteremia due to group B Streptococcus Lymphedema Sustained VT (ventricular tachycardia) GERD (gastroesophageal reflux disease) Hx of osteomyelitis Hx of myocardial infarction found on testing Asthma well controlled, 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 CKD (chronic kidney disease) stage 3, GFR 30-59 ml/min Surgical History History of esophagogastroduodenoscopy (EGD) H/O foot surgery LEFT FOOT ULCER DEBRIDEMENT H/O cardiac radiofrequency ablation OCTOBER 2019 ([facility]) AT [facility] History of cardiac cath V. tach -- no stent. 06/2019. unsure where it was done History of sinus surgery Hx of tonsillectomy History of colonoscopy Hx of amputation of lesser toe H/O shoulder surgery left Family History Sister Family history of diabetes mellitus 2 Grandmother (Maternal) Family history of diabetes mellitus Grandfather (Maternal) Family history of diabetes mellitus Father Cancer Mother Cancer Other No family history of adverse response to anesthesia Social History Smoking Status: Never smoker Second Hand Exposure: No; Do You Dip or Chew Tobacco: No; Tobacco Cessation Education Requested by Patient: No Hx Alcohol Use: No Hx Substance Use: No Preferred Language: Czech Communication Ability: Effective 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 Physical Exam Couldn't be obtained as the consult was conducted via telemed. Results & Data Vital Signs (Past 12 Hours) Vital Signs Temp Pulse Pulse Resp BP BP Pulse Ox 06/03/24 11:45 36.3 C L 64 18 123/71 95 06/03/24 07:39 36.4 C L 72 18 118/75 95 06/03/24 07:25 06/03/24 05:44 61 06/03/24 03:05 36.5 C 63 18 105/67 93 O2 Del Method 06/03/24 11:45 Room Air 06/03/24 07:39 Room Air 06/03/24 07:25 Room Air 06/03/24 05:44 06/03/24 03:05 Room Air Laboratory Results 05/23: 2 sets of blood Cx NTD 06/02: superficial wound cx Rt foot wound - pin point growth reintubated for further growth (1) Diabetic ulcer of right foot associated with diabetes mellitus due to underlying condition, with necrosis of bone Diabetic foot ulcer location: other Qualified Code(s): E08.621 - Diabetes mellitus due to underlying condition with foot ulcer; L97.514 - Non-pressure chronic ulcer of other part of right foot with necrosis of bone
--- NOTE | 2024-06-03 17:01 | Hospitalist Progress Note ---
Date of Service June 03, 2024 Assessment & Plan (1) Atrial fibrillation with RVR: Plan: (1) Atrial fibrillation with RVR: Plan: -noted RVR on arrival, placed on dilt drip -appears much improved this morning, likely in setting of poor self care at home and medicaion compliance Plan: -continue metoprolol succinate 150 mg daily -continue aldactone, lisinopril, well tolerated -continue warfarin, adjust based on INR 2/6 Heart rate stable INR 2.6 Resume Coumadin 2 INR 2.3 Continue Coumadin (2) Chronic systolic heart failure: Plan: -noted on echo, EF slightly decreased to 30-35% -does not appear fluid overloaded at this time Plan: -optimize GDMT -see above -add SGLT 2 inhibitor before discharge 2/6 On spironolactone May need Lasix IV 06/03 Positive grade 2 lower extremity edema Start Lasix 40 mg IV Continue spironolactone (3) Ileus: Plan: -minimal tenderness to palpation, still moving bowels per patient -per patient last BM yesterday, KUB shows generalized constipation, appears unchanged to prior imaging -no evidence of transition point or SBO at this time -CT abdomen pelvis unremarkable Plan: -miralax, senna, suppository again today Resolved 2/6 Reporting epigastric pain Carafate added to Protonix --> Epigastric pain resolved GI consulted, no plans for EGD at this point (4) Adult failure to thrive: Plan: -patient has had numerous hospitalizations in regards to failure to thrive at home -appears disheveled, found by EMS with pet at door, poor living conditions -high concern given psychiatric concerns and overall condition that patient will be unable to safely return home Plan: -PT/OT ordered -discussed with child support case officer, filled out APS requested forms in regards to disposition -of note, over my past few days patient has showed medical capacity in regards to his medical conditions, but has not exhibited understanding or appreciation of his ability to take care of himself, and is a danger to self living on his own at this time (5) Cellulitis of left lower leg: Plan: Possible infected chronic right foot wound/ulcer right foot cellulitis, right lower extremity cellulitis Wound examined with wound care nurse at the bedside Blood cultures negative Wound culture ordered today Has completed 7-day course of IV cefepime however, patient's lower leg, right foot still with significant edema, and moderate erythema, warmth, mild tenderness Past microbiologic data reviewed Patient grew Pseudomonas, Morganella in January 2024 which was drug-resistant Start IV meropenem Consult podiatry Consult infectious disease 06/03 Recommendations by podiatry service, infectious disease service noted Appreciate the recommendations Per Dr. Lutz podiatry service, right lower extremity nonsalvageable, recommend discussion regarding amputation, patient not ready at this point, prefers to discuss with his usual outpatient dean of graduate studies Dr. Mckenzie Per Dr. Singh, no signs of active infection at this time Recommend to monitor off antibiotics Lasix IV ordered to address bilateral lower extremity edema (6) 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: Plan: -relatively controlled Plan: -insulin protocol -regular diet (7) PVD (peripheral vascular disease): Plan: -noted from prior, s/p left BKA amputation (8) Morbid obesity: Plan: -likely contributer to PVD and recurrent cellulitis (9) CKD (chronic kidney disease) stage 3, GFR 30-59 ml/min: Plan: -creatinine at baseline (10) NINA on CPAP: Plan: -continue CPAP (11) Cardiac defibrillator in situ: Plan: -noted (12) MDD (major depressive disorder), recurrent episode, mild: Plan: -patient has suicideal ideation without a plan, appears passive -patient is quite depressed, feels hopeless Plan: -psych consult, appreciate recs -zyprexa prn for agitation -consult spiritual care, psychology as well (13) Lymphedema: Plan: -likely contributer to cellulitis Plan: -[facility]/u [facility] outpatient 06/02 On spironolactone May need IV Lasix 06/03 start IV lasix (14) Chronic pain syndrome: Plan: -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, 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 Plan: -continue home oxycodone -continue duloxetine 60 mg -continue pregablin 50 tid for severe neuropathic pain Plan Feeding/fluids: regular Analgesia: tylenol, dilaudid Sedation: na Thromboprophylaxis: warfarin Head up position: na Ulcer prophylaxis: na Glycemic control: insulin protocol Spontaneous breathing trial: na Bowel care: miralax, senna, suppository prn Indwelling catheter removal: na Deescalation of antibiotics: na (2) Chronic systolic heart failure: (3) Ileus: (4) Adult failure to thrive: (5) Cellulitis of left lower leg: (6) 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: (7) PVD (peripheral vascular disease): (8) Morbid obesity: (9) CKD (chronic kidney disease) stage 3, GFR 30-59 ml/min: (10) NINA on CPAP: (11) Cardiac defibrillator in situ: Plan: -noted (12) MDD (major depressive disorder), recurrent episode, mild: (13) Lymphedema: (14) Chronic pain syndrome: Admission and Anticipated Discharge Date Admission Date: May 24, 2024 Subjective Follow-up for abdominal pain, right foot ulcer with right lower extremity cellulitis, etc. Seen resting in bed, comfortable, having lunch States he feels better today No abdominal pain, tolerating diet well No nausea or vomiting Denies right lower extremity pain or foot pain Reports some pain at the left stump area No fevers or chills Review of Systems Review of Systems: all noted and negative except for above Physical Exam Physical Exam: General- oriented x 3, not in distress, speaks in sentences with no effort or accessory muscle use Eyes- anicteric Neck- no JVD Lungs- clear breath sounds bilaterally, no rales/wheezes Heart- normal rate, regular rhythm; no murmurs Abdomen- normal bowel sounds, nondistended, soft, nontender Molina catheter in place: No hematuria Extremities- Right lower extremity: Positive grade 1-2 edema, no erythema/warmth/tenderness Foot: Heavy dressing in place, no signs of bleeding Left lower extremity: Positive stump, grade 1-2 edema, no erythema/warmth/tenderness Neuro- alert, oriented x 3; no gross focal neurologic deficits Skin- warm & dry Results & Data Results & Data Vital Signs (Past 12 Hours) Vital Signs Temp Pulse Pulse Resp BP Pulse Ox O2 Del Method 06/03/24 16:42 36.3 C L 69 18 140/72 93 Room Air 06/03/24 13:01 61 06/03/24 11:45 36.3 C L 64 18 123/71 95 Room Air 06/03/24 07:39 36.4 C L 72 18 118/75 95 Room Air 06/03/24 07:25 Room Air 06/03/24 05:44 61 (9) CKD (chronic kidney disease) stage 3, GFR 30-59 ml/min Chronic kidney disease stage 3 subtype: stage 3a (GFR 45-59) Qualified Code(s): N18.31 - Chronic kidney disease, stage 3a
[2024-06-03] MEDS: FUROSEMIDE 40 MG/4 ML VIAL IV ONE (17:30)
[2024-06-03] MEDS: WARFARIN SOD 3 MG TAB PO ONE (17:30)
[2024-06-04 06:12] LABS: BUN Creatinine Ratio 11.6 (10-20); Calcium 8.8 mg/dl (8.6-10.3); Creatinine Clr Calc Pharmacy 109.6 ml/min; Potassium 4.6 mmol/L (3.5-5.1)
[2024-06-04 06:22] LABS: INR 2.5 (0.9-1.1); Prothrombin Time 25.1 Seconds (9.0-12.0)
[2024-06-04] MEDS: LANTUS PER UNIT CHARGE SC SCH ×2 (09:45→20:08)
[2024-06-04] MEDS: FUROSEMIDE 40 MG/4 ML VIAL IV ONE (13:15)
--- NOTE | 2024-06-04 14:49 | Hospitalist Progress Note ---
Date of Service June 04, 2024 Assessment & Plan (1) Atrial fibrillation with RVR: Plan: (1) Atrial fibrillation with RVR: Plan: -noted RVR on arrival, placed on dilt drip -appears much improved this morning, likely in setting of poor self care at home and medicaion compliance Plan: -continue metoprolol succinate 150 mg daily -continue aldactone, lisinopril, well tolerated -continue warfarin, adjust based on INR 2/ Heart rate stable INR 2.6 Resume Coumadin 2 INR 2.3 Continue Coumadin 28 INR2.5 continue coumadin (2) Chronic systolic heart failure: Plan: -noted on echo, EF slightly decreased to 30-35% -does not appear fluid overloaded at this time Plan: -optimize GDMT -see above -add SGLT 2 inhibitor before discharge 06/02 On spironolactone May need Lasix IV 06/03 Positive grade 2 lower extremity edema Start Lasix 40 mg IV Continue spironolactone 06/04 (+) 2.9 L fluid balance Lasix 40mg IV today Spironolactone (3) Ileus: Plan: -minimal tenderness to palpation, still moving bowels per patient -per patient last BM yesterday, KUB shows generalized constipation, appears unchanged to prior imaging -no evidence of transition point or SBO at this time -CT abdomen pelvis unremarkable Plan: -miralax, senna, suppository again today Resolved 2/ Reporting epigastric pain Carafate added to Protonix --> Epigastric pain resolved GI consulted, no plans for EGD at this point 2 symptoms better (4) Adult failure to thrive: Plan: -patient has had numerous hospitalizations in regards to failure to thrive at home -appears disheveled, found by EMS with pet at door, poor living conditions -high concern given psychiatric concerns and overall condition that patient will be unable to safely return home Plan: -PT/OT ordered -discussed with correctional case records supervisor, filled out APS requested forms in regards to disposition -of note, over my past few days patient has showed medical capacity in regards to his medical conditions, but has not exhibited understanding or appreciation of his ability to take care of himself, and is a danger to self living on his own at this time (5) Cellulitis of left lower leg: Plan: Possible infected chronic right foot wound/ulcer right foot cellulitis, right lower extremity cellulitis Wound examined with wound care nurse at the bedside Blood cultures negative Wound culture ordered today Has completed 7-day course of IV cefepime however, patient's lower leg, right foot still with significant edema, and moderate erythema, warmth, mild tenderness Past microbiologic data reviewed Patient grew Pseudomonas, Morganella in January 2024 which was drug-resistant Start IV meropenem Consult podiatry Consult infectious disease 06/03 Recommendations by podiatry service, infectious disease service noted Appreciate the recommendations Per Dr. Lutz podiatry service, right lower extremity nonsalvageable, recommend discussion regarding amputation, patient not ready at this point, prefers to discuss with his usual outpatient category development analyst Dr. Mckenzie Per Dr. Singh, no signs of active infection at this time Recommend to monitor off antibiotics Lasix IV ordered to address bilateral lower extremity edema 06/04 monitor off abx (6) 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: Plan: -relatively controlled Plan: -insulin protocol -regular diet (7) PVD (peripheral vascular disease): Plan: -noted from prior, s/p left BKA amputation (8) Morbid obesity: Plan: -likely contributer to PVD and recurrent cellulitis (9) CKD (chronic kidney disease) stage 3, GFR 30-59 ml/min: Plan: -creatinine at baseline (10) NINA on CPAP: Plan: -continue CPAP (11) Cardiac defibrillator in situ: Plan: -noted (12) MDD (major depressive disorder), recurrent episode, mild: Plan: -patient has suicideal ideation without a plan, appears passive -patient is quite depressed, feels hopeless Plan: -psych consult, appreciate recs -zyprexa prn for agitation -consult spiritual care, psychology as well (13) Lymphedema: Plan: -likely contributing to cellulitis Plan: -[facility]u [facility] 06/02 On spironolactone May need IV Lasix 06/03 start IV lasix 06/04 IV Lasix ordered (14) Chronic pain syndrome: Plan: -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, 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 Plan: -continue home oxycodone -continue duloxetine 60 mg -continue pregablin 50 tid for severe neuropathic pain DVT px on coumadin Disposition pending Plan Feeding/fluids: regular Analgesia: tylenol, dilaudid Sedation: na Thromboprophylaxis: warfarin Head up position: na Ulcer prophylaxis: na Glycemic control: insulin protocol Spontaneous breathing trial: na Bowel care: miralax, senna, suppository prn Indwelling catheter removal: na Deescalation of antibiotics: na I spent a total of 40 minutes in direct patient care, including [id number] time with the patient and/or family, reviewing medical records, ordering and reviewing diagnostic tests, and coordinating care with other healthcare providers. This time includes: history taking, physical examination, medical decision making, counseling, ECG interpretation, imaging interpretation, lab interpretation, orders, and education, excluding time spent in the performance of separately billed services. Admission and Anticipated Discharge Date Admission Date: May 24, 2024 Subjective ff up for R foot wound, etc seen resting in bed, comfortable sleeping but easily awakened states he is having R hip pain today no abdominal pain, nausea tolerating diet well has mild discomfort L stump- distal aspect no fever/chills no other symptoms Review of Systems Review of Systems: all noted and negative except for above Physical Exam Physical Exam: General- oriented x 3, not in distress, speaks in sentences with no effort or accessory muscle use Eyes- anicteric Neck- no JVD Lungs- clear breath sounds bilaterally, no crackles or wheezing Heart- normal rate, regular rhythm; no murmurs Abdomen- normal bowel sounds, nondistended, soft, nontender Extremities- RLE: grade 1-2 edema, improving, no erythema/warmth/tenderness LLE: (+) stump, same as above Neuro- alert, oriented x 3; no gross focal neurologic deficits Skin- warm & dry Results & Data Results & Data Vital Signs (Past 12 Hours) Vital Signs Temp Pulse Resp BP Pulse Ox O2 Del Method 06/04/24 11:50 36.3 C L 66 18 119/72 92 Room Air 06/04/24 08:06 36.6 C 73 18 123/73 93 Room Air all noted and reviewed including below
[2024-06-05 06:07] LABS: BUN Creatinine Ratio 17.8 (10-20); Calcium 8.8 mg/dl (8.6-10.3); Creatinine Clr Calc Pharmacy 135.8 ml/min; Potassium 4.5 mmol/L (3.5-5.1)
[2024-06-05 06:20] LABS: INR 3.1 (0.9-1.1); Prothrombin Time 30.4 Seconds (9.0-12.0)
[2024-06-05] MEDS: FUROSEMIDE 40 MG/4 ML VIAL IV ONE (13:25)
--- NOTE | 2024-06-05 15:17 | Hospitalist Progress Note ---
Date of Service June 05, 2024 Assessment & Plan (1) Atrial fibrillation with RVR: Plan: (1) Atrial fibrillation with RVR: Plan: (1) Atrial fibrillation with RVR: Plan: -noted RVR on arrival, placed on dilt drip -appears much improved this morning, likely in setting of poor self care at home and medicaion compliance Plan: -continue metoprolol succinate 150 mg daily -continue aldactone, lisinopril, well tolerated -continue warfarin, adjust based on INR 2/6 Heart rate stable INR 2.6 Resume Coumadin 2 INR 2.3 Continue Coumadin 28 INR2.5 continue coumadin 06/05 INR 3.1 Hold Coumadin (2) Chronic systolic heart failure: Plan: -noted on echo, EF slightly decreased to 30-35% -does not appear fluid overloaded at this time Plan: -optimize GDMT -see above -add SGLT 2 inhibitor before discharge 06/02 On spironolactone May need Lasix IV 06/03 Positive grade 2 lower extremity edema Start Lasix 40 mg IV Continue spironolactone 06/04 (+) 2.9 L fluid balance Lasix 40mg IV today Spironolactone 06/05 +2 L fluid balance Lasix 40 mg IV in the morning, 20 mg at p.m. Spironolactone Monitor (3) Ileus: Plan: -minimal tenderness to palpation, still moving bowels per patient -per patient last BM yesterday, KUB shows generalized constipation, appears unchanged to prior imaging -no evidence of transition point or SBO at this time -CT abdomen pelvis unremarkable Plan: -miralax, senna, suppository again today Resolved / Reporting epigastric pain Carafate added to Protonix --> Epigastric pain resolved GI consulted, no plans for EGD at this point 06/04 symptoms better 06/05 GI symptoms resolved (4) Adult failure to thrive: Plan: -patient has had numerous hospitalizations in regards to failure to thrive at home -appears disheveled, found by EMS with pet at door, poor living conditions -high concern given psychiatric concerns and overall condition that patient will be unable to safely return home Plan: -PT/OT ordered -discussed with pillowcase cutter, filled out APS requested forms in regards to disposition -of note, over my past few days patient has showed medical capacity in regards to his medical conditions, but has not exhibited understanding or appreciation of his ability to take care of himself, and is a danger to self living on his own at this time (5) Cellulitis of left lower leg: Plan: Possible infected chronic right foot wound/ulcer right foot cellulitis, right lower extremity cellulitis Wound examined with wound care nurse at the bedside Blood cultures negative Wound culture ordered today Has completed 7-day course of IV cefepime however, patient's lower leg, right foot still with significant edema, and moderate erythema, warmth, mild tenderness Past microbiologic data reviewed Patient grew Pseudomonas, Morganella in January 2024 which was drug-resistant Start IV meropenem Consult podiatry Consult infectious disease 06/03 Recommendations by podiatry service, infectious disease service noted Appreciate the recommendations Per Dr. 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 Mckenzie Per Dr. Singh, no signs of active infection at this time Recommend to monitor off antibiotics Lasix IV ordered to address bilateral lower extremity edema 06/04 monitor off abx 06/05 monitor (6) 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: Plan: -relatively controlled Plan: -insulin protocol -regular diet (7) PVD (peripheral vascular disease): Plan: -noted from prior, s/p left BKA amputation (8) Morbid obesity: Plan: -likely contributer to PVD and recurrent cellulitis (9) CKD (chronic kidney disease) stage 3, GFR 30-59 ml/min: Plan: -creatinine at baseline (10) NINA on CPAP: Plan: -continue CPAP (11) Cardiac defibrillator in situ: Plan: -noted (12) MDD (major depressive disorder), recurrent episode, mild: Plan: -patient has suicideal ideation without a plan, appears passive -patient is quite depressed, feels hopeless Plan: -psych consult, appreciate recs -zyprexa prn for agitation -consult spiritual care, psychology as well (13) Lymphedema: Plan: -likely contributing to cellulitis Plan: -[facility]u [facility] 06/02 On spironolactone May need IV Lasix 06/03 start IV lasix 06/04 IV Lasix ordered 06/05 on IV lasix (14) Chronic pain syndrome: 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 Seen resting in bed, sleeping but easily awakened States he feels fine overall Minimal discomfort over left lower extremity No problems with oral intake, abdominal pain No other new symptoms Review of Systems Review of Systems: all noted and negative except for above Physical Exam Physical Exam: General- oriented x 3, not in distress, speaks in sentences with no effort or accessory muscle use Eyes- anicteric Neck- no JVD Lungs- clear breath sounds bilaterally no crackles/wheezing Heart- normal rate, regular rhythm; no murmurs Abdomen- normal bowel sounds, nondistended, soft, nontender Extremities- Grade 2 lower extremity edema, no erythema/warmth/tenderness Neuro- alert, oriented x 3; no gross focal neurologic deficits Skin- warm & dry Results & Data Results & Data Vital Signs (Past 12 Hours) Vital Signs Temp Pulse Resp BP Pulse Ox O2 Del Method 06/05/24 11:32 36.5 C 64 17 104/65 95 Room Air 06/05/24 08:06 36.5 C 69 20 116/57 L 93 Room Air 06/05/24 08:00 Room Air all noted and reviewed including below
[2024-06-05] MEDS: FUROSEMIDE INJ 20 MG/2 ML VIAL IV ONE (17:58)
[2024-06-06 08:29] LABS: BUN Creatinine Ratio 19.1 (10-20); Calcium 8.7 mg/dl (8.6-10.3); Creatinine Clr Calc Pharmacy 136.9 ml/min; Potassium 4.1 mmol/L (3.5-5.1)
[2024-06-06 08:30] LABS: INR 3.3 (0.9-1.1); Prothrombin Time 32.3 Seconds (9.0-12.0)
[2024-06-06] MEDS ORDERED: LANTUS PER UNIT CHARGE SC SCH (09:00)
[2024-06-06] MEDS: LANTUS PER UNIT CHARGE SC SCH (09:25)
--- NOTE | 2024-06-06 09:58 | Pharmacy Report ---
Pharmacy Glycemic Short Note 2 - Date of Service June 06, 2024 - Glycemic Short BSG Results (Last 24 hours): 06/05/24 06/05/24 06/05/24 11:57 17:08 20:13 Glucose POC Glucose 174 H 153 H 81 06/06/24 06/06/24 06/06/24 07:46 07:57 08:02 Glucose 104 H POC Glucose 493 H* 108 H 06/06/24 08:24 Glucose POC Glucose 101 H OUTPATIENT ANTIDIABETIC REGIMEN: * Novolog pump * pre-meal target range: 90-150 mg/dL * post-meal target range: <220 mg/dL * Carb ratio: 1:3 g/unit * Correction factor: 1:30 unit/mg/dL * Basal rate: 7 units/hr (2334-6836), 6 units/hr (7795-0815), 7 units/hr (2485-4998) - 155 units/day HbA1c: 7.5% (02/09/24), 8.1% (04/2024 per H&P) ASSESSMENT: 06/06 * Patient received a total of 51 units of insulin yesterday (5 were basal and 46 were bolus) * BSGs were above goal range most of yesterday (341-509-144gx/dL) and then dropped to 81mg/dL at HS. * Fasting BSG was 108mg/dL this morning. The lower BSG last evening and into this morning is likely due to over correction at dinner time yesterday. CR was loosened starting with breakfast today. Will continue with Lantus 5 units q AM and Lantus scale (0, 5, 10 units) at bedtime. 06/03: * Patient received total of 16 units of insulin yesterday, low dose basal insulin resumed * Fasting BSG 142 mg/dL, continue scale for basal for now - may need to titrate up once diet improves more * no change to CF/CR 06/01: * Patient did not receive any insulin yesterday, no carbs documented * Fasting BSG 114 mg/dL - held AM basal * Lunch BSG trending up to 205 mg/dL, despite no PO intake at breakfast - will add conservative basal dose for HS in case BSGs trend upward. It has been a few days since any basal insulin given so may start to see increase in blood sugars 05/30: * Ben received no insulin yesterday * Fasting BSG this AM within goal range, continue to hold basal until PO appetite improves. * Unable to assess NovoLog since patient has not been eating due to nausea/abdominal cramping. 05/29: * Received 25 units of basal yesterday and 14 more units of bolus. BSGs were 88-48-783-104 mg/dL. * Patient continues to not eat today per RN. BSGs 108 and 104 mg/dL. Will hold basal until patient eating again. Considered low dose basal just so some is on board but RN concerned given hypoglycemia yesterday. * No changes to Novolog. 05/28: * Received 60 units of insulin yesterday, 50 of which were basal. BSGs were 775-896-113-137 mg/dL. * Fasting BSG down to 90 mg/dL this AM. Reduced basal. * Lunchtime hypoglycemia at 52 mg/dL today. Required 45 g of carbs to bring BSG up to 76 mg/dL. Thankfully, patient was asymptomatic during this event. Unsure of reasoning for hypoglycemia but suspect basal overload combined with tight carb ratio. Will loosen carb ratio and hold lunch Novolog. Holding PM basal dose and will reassess tomorrow morning. 05/27: * BSGs have been fairly stable for the past 48 hours. * Pt refused his morning insulin yesterday, so BSGs have been trending up today, but still reasonable. * Pt has requested a regular diet rather than a diabetic diet. * Slight adjustment made to Lantus dosing this morning in an attempt to avoid hypoglycemia and discourage pt refusal of doses. * Pharmacy will continue to follow and adjust regimen as indicated. 05/24: * CG is a 58 year old male who presents to ED s/p mechanical fall out of wheelchair * Patient is well-known to pharmacy glycemic service s/p multiple admissions/consultations * Reasonably well-controlled T2DM as an outpatient with Novolog insulin pump (fairly large daily insulin doses) * Insulin pump removed prior to admission * Will utilize pump settings and prior inpatient glycemic data to guide initial SC insulin dosing PLAN FOR INPATIENT GLYCEMIC CONTROL: * Hold insulin pump * Basal insulin * Lantus 5 units qAM and Lantus scale at HS (BSG < 110 hold; BSG 110-179 give 5 units; BSG 180 or > give 10 units) * Bolus insulin * NovoLog per scale ACHS or Q6hrs while NPO * Goal Range: Low 110 mg/dL - High 150 mg/dL * Correction Factor: 30 mg/dL/unit * Nutritional / Prandial insulin per carb ratio of 1 unit per 5 grams CHO consumed
--- NOTE | 2024-06-06 17:17 | Hospitalist Progress Note ---
Date of Service June 06, 2024 Assessment & Plan (1) Atrial fibrillation with RVR: Plan: (1) Atrial fibrillation with RVR: Plan: (1) Atrial fibrillation with RVR: Plan: -noted RVR on arrival, placed on dilt drip -appears much improved this morning, likely in setting of poor self care at home and medicaion compliance Plan: -continue metoprolol succinate 150 mg daily -continue aldactone, lisinopril, well tolerated -continue warfarin, adjust based on INR 2 Heart rate stable INR 2.6 Resume Coumadin 06/03 INR 2.3 Continue Coumadin 28 INR2.5 continue coumadin 06/05 INR 3.1 Hold Coumadin 06/06 INR 3.3 Hold Coumadin (2) Chronic systolic heart failure: Plan: -noted on echo, EF slightly decreased to 30-35% -does not appear fluid overloaded at this time Plan: -optimize GDMT -see above -add SGLT 2 inhibitor before discharge 06/02 On spironolactone May need Lasix IV 06/03 Positive grade 2 lower extremity edema Start Lasix 40 mg IV Continue spironolactone 06/04 (+) 2.9 L fluid balance Lasix 40mg IV today Spironolactone 06/05 +2 L fluid balance Lasix 40 mg IV in the morning, 20 mg at p.m. Spironolactone Monitor 06/06 Currently -166 mL fluid balance Hold diuretics for now Monitor closely (3) Ileus: Plan: -minimal tenderness to palpation, still moving bowels per patient -per patient last BM yesterday, KUB shows generalized constipation, appears unchanged to prior imaging -no evidence of transition point or SBO at this time -CT abdomen pelvis unremarkable Plan: -miralax, senna, suppository again today Resolved / Reporting epigastric pain Carafate added to Protonix --> Epigastric pain resolved GI consulted, no plans for EGD at this point 06/04 symptoms better 06/05 GI symptoms resolved (4) Adult failure to thrive: Plan: -patient has had numerous hospitalizations in regards to failure to thrive at home -appears disheveled, found by EMS with pet at door, poor living conditions -high concern given psychiatric concerns and overall condition that patient will be unable to safely return home Plan: -PT/OT ordered -discussed with clinical case manager, filled out APS requested forms in regards to disposition -of note, over my past few days patient has showed medical capacity in regards to his medical conditions, but has not exhibited understanding or appreciation of his ability to take care of himself, and is a danger to self living on his own at this time (5) Cellulitis of left lower leg: Plan: Possible infected chronic right foot wound/ulcer right foot cellulitis, right lower extremity cellulitis Wound examined with wound care nurse at the bedside Blood cultures negative Wound culture ordered today Has completed 7-day course of IV cefepime however, patient's lower leg, right foot still with significant edema, and moderate erythema, warmth, mild tenderness Past microbiologic data reviewed Patient grew Pseudomonas, Morganella in January 2024 which was drug-resistant Start IV meropenem Consult podiatry Consult infectious disease 06/03 Recommendations by podiatry service, infectious disease service noted Appreciate the recommendations Per Dr. Lutz podiatry service, right lower extremity nonsalvageable, recommend discussion regarding amputation, patient not ready at this point, prefers to discuss with his usual outpatient food and beverage coordinator Dr. Mckenzie Per Dr. 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: Plan: -relatively controlled Plan: -insulin protocol -regular diet (7) PVD (peripheral vascular disease): Plan: -noted from prior, s/p left BKA amputation (8) Morbid obesity: Plan: -likely contributer to PVD and recurrent cellulitis (9) CKD (chronic kidney disease) stage 3, GFR 30-59 ml/min: Plan: -creatinine at baseline (10) NINA on CPAP: Plan: -continue CPAP (11) Cardiac defibrillator in situ: Plan: -noted (12) MDD (major depressive disorder), recurrent episode, mild: Plan: -patient has suicideal ideation without a plan, appears passive -patient is quite depressed, feels hopeless Plan: -psych consult, appreciate recs -zyprexa prn for agitation -consult spiritual care, psychology as well (13) Lymphedema: Plan: -likely contributing to cellulitis Plan: -[facility]u [facility] 2/6 On spironolactone May need IV Lasix 06/03 start IV lasix 06/04 IV Lasix ordered 06/05 on IV lasix 10 BP on the lower side hold off on diuretics for today (14) Chronic pain syndrome: 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 Seen resting in bed, comfortable, not in distress States he feels fine overall Has some mild discomfort over the left lower leg No fevers or chills No problems with eating No other new symptom Review of Systems Review of Systems: all noted and negative except for above Physical Exam Physical Exam: General- oriented x 3, not in distress, speaks in sentences with no effort or accessory muscle use Eyes- anicteric Neck- no JVD Lungs- clear breath sounds bilaterally, no rales/wheezes Heart- normal rate, regular rhythm; no murmurs Abdomen- normal bowel sounds, nondistended, soft, nontender Extremities- Grade 1-2 lower extremity edema, no erythema/warmth/tenderness Neuro- alert, oriented x 3; no gross focal neurologic deficits Skin- warm & dry Results & Data Results & Data Vital Signs (Past 12 Hours) Vital Signs Temp Pulse Pulse Resp BP BP Pulse Ox 06/06/24 15:26 36.6 C 62 20 120/63 92 06/06/24 13:58 60 06/06/24 12:10 36.4 C L 63 14 119/69 94 06/06/24 09:23 36.5 C 69 16 105/69 93 06/06/24 08:00 06/06/24 07:33 70 O2 Del Method 06/06/24 15:26 Room Air 06/06/24 13:58 06/06/24 12:10 Room Air 06/06/24 09:23 Room Air 06/06/24 08:00 Room Air 06/06/24 07:33 all noted and reviewed including below
[2024-06-07 06:43] LABS: BUN Creatinine Ratio 19.8 (10-20); Calcium 8.4 mg/dl (8.6-10.3); Creatinine Clr Calc Pharmacy 150.4 ml/min; Potassium 4.1 mmol/L (3.5-5.1)
[2024-06-07 07:08] LABS: INR 2.7 (0.9-1.1); Prothrombin Time 26.6 Seconds (9.0-12.0)
[2024-06-07] MEDS: WARFARIN SOD 2 MG TAB PO SCH (17:14)
--- NOTE | 2024-06-07 17:31 | Hospitalist Progress Note ---
Date of Service June 07, 2024 Assessment & Plan (1) Atrial fibrillation with RVR: Plan: (1) Atrial fibrillation with RVR: Plan: (1) Atrial fibrillation with RVR: Plan: -noted RVR on arrival, placed on dilt drip -appears much improved this morning, likely in setting of poor self care at home and medicaion compliance Plan: -continue metoprolol succinate 150 mg daily -continue aldactone, lisinopril, well tolerated -continue warfarin, adjust based on INR 2 Heart rate stable INR 2.6 Resume Coumadin 7 INR 2.3 Continue Coumadin 28 INR2.5 continue coumadin 06/05 INR 3.1 Hold Coumadin 06/06 INR 3.3 Hold Coumadin 06/07 INR 2.7 Continue Coumadin (2) Chronic systolic heart failure: Plan: -noted on echo, EF slightly decreased to 30-35% -does not appear fluid overloaded at this time Plan: -optimize GDMT -see above -add SGLT 2 inhibitor before discharge 06/02 On spironolactone May need Lasix IV 06/03 Positive grade 2 lower extremity edema Start Lasix 40 mg IV Continue spironolactone 06/04 (+) 2.9 L fluid balance Lasix 40mg IV today Spironolactone 06/05 +2 L fluid balance Lasix 40 mg IV in the morning, 20 mg at p.m. Spironolactone Monitor 06/06 Currently -166 mL fluid balance Hold diuretics for now Monitor closely 06/07 -400 cc fluid balance Blood pressure on the lower side Hold diuretics for now (3) Ileus: Plan: -minimal tenderness to palpation, still moving bowels per patient -per patient last BM yesterday, KUB shows generalized constipation, appears unchanged to prior imaging -no evidence of transition point or SBO at this time -CT abdomen pelvis unremarkable Plan: -miralax, senna, suppository again today Resolved / Reporting epigastric pain Carafate added to Protonix --> Epigastric pain resolved GI consulted, no plans for EGD at this point 06/04 symptoms better 06/05 GI symptoms resolved (4) Adult failure to thrive: Plan: -patient has had numerous hospitalizations in regards to failure to thrive at home -appears disheveled, found by EMS with pet at door, poor living conditions -high concern given psychiatric concerns and overall condition that patient will be unable to safely return home Plan: -PT/OT ordered -discussed with case maker, filled out APS requested forms in regards to disposition -of note, over my past few days patient has showed medical capacity in regards to his medical conditions, but has not exhibited understanding or appreciation of his ability to take care of himself, and is a danger to self living on his own at this time (5) Cellulitis of left lower leg: Plan: Possible infected chronic right foot wound/ulcer right foot cellulitis, right lower extremity cellulitis Wound examined with wound care nurse at the bedside Blood cultures negative Wound culture ordered today Has completed 7-day course of IV cefepime however, patient's lower leg, right foot still with significant edema, and moderate erythema, warmth, mild tenderness Past microbiologic data reviewed Patient grew Pseudomonas, Morganella in January 2024 which was drug-resistant Start IV meropenem Consult podiatry Consult infectious disease 06/03 Recommendations by podiatry service, infectious disease service noted Appreciate the recommendations Per Dr. Lutz podiatry service, right lower extremity nonsalvageable, recommend discussion regarding amputation, patient not ready at this point, prefers to discuss with his usual outpatient icu rn Dr. Mckenzie Per Dr. 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: Plan: -relatively controlled Plan: -insulin protocol -regular diet (7) PVD (peripheral vascular disease): Plan: -noted from prior, s/p left BKA amputation (8) Morbid obesity: Plan: -likely contributer to PVD and recurrent cellulitis (9) CKD (chronic kidney disease) stage 3, GFR 30-59 ml/min: Plan: -creatinine at baseline (10) NINA on CPAP: Plan: -continue CPAP (11) Cardiac defibrillator in situ: Plan: -noted (12) MDD (major depressive disorder), recurrent episode, mild: Plan: -patient has suicideal ideation without a plan, appears passive -patient is quite depressed, feels hopeless Plan: -psych consult, appreciate recs -zyprexa prn for agitation -consult spiritual care, psychology as well (13) Lymphedema: Plan: -likely contributing to cellulitis Plan: -[facility]u [facility] 06/02 On spironolactone May need IV Lasix 06/03 start IV lasix 06/04 IV Lasix ordered 06/05 on IV lasix 06/07 BP on the lower side hold off on diuretics for today (14) Chronic pain syndrome: 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 Seen resting in bed, comfortable, not in distress Minimal discomfort on lower extremities No fevers or chills No abdominal pain or nausea No other new symptom Review of Systems Review of Systems: all noted and negative except for above Physical Exam Physical Exam: General- oriented x 3, not in distress, speaks in sentences with no effort or accessory muscle use Eyes- anicteric Neck- no JVD Lungs- Clear breath sounds bilaterally, no crackles or wheeze Heart- normal rate, regular rhythm; no murmurs Abdomen- normal bowel sounds, nondistended, soft, nontender Extremities-Grade 1 lower extremity edema, no erythema/warmth/tenderness Right foot heavy dressing in place, no bleeding noted Neuro- alert, oriented x 3; no gross focal neurologic deficits Skin- warm & dry Results & Data Results & Data Vital Signs (Past 12 Hours) Vital Signs Temp Pulse Pulse Resp BP Pulse Ox O2 Del Method 06/07/24 15:45 36.5 C 70 18 111/70 95 Room Air 06/07/24 15:00 63 06/07/24 11:04 36.7 C 71 18 122/76 95 Room Air 06/07/24 08:01 36.5 C 66 18 106/71 93 Room Air 06/07/24 08:00 Room Air 06/07/24 07:18 72 all noted and reviewed including below
[2024-06-08] MEDS: KETOROLAC TROMETHAMINE 15 MG/ML VIAL IV ONE (00:43)
[2024-06-08 06:44] LABS: BUN Creatinine Ratio 18.8 (10-20); Calcium 8.3 mg/dl (8.6-10.3); Potassium 4.2 mmol/L (3.5-5.1)
[2024-06-08 10:27] LABS: INR 2.2 (0.9-1.1); Prothrombin Time 22.3 Seconds (9.0-12.0)
--- NOTE | 2024-06-08 14:35 | Hospitalist Progress Note ---
Date of Service June 08, 2024 Assessment & Plan (1) Atrial fibrillation with RVR: Plan: per previous hospitalist notes with addendum: (1) Atrial fibrillation with RVR: Plan: -noted RVR on arrival, placed on dilt drip -appears much improved this morning, likely in setting of poor self care at home and medicaion compliance Plan: -continue metoprolol succinate 150 mg daily -continue aldactone, lisinopril, well tolerated -continue warfarin, adjust based on INR (2) Chronic systolic heart failure: Plan: -noted on echo, EF slightly decreased to 30-35% - given IV Lasix, leg edema improving transition to PO, monitor BP closely also on spironolactone (3) Ileus: Plan: -minimal tenderness to palpation, still moving bowels per patient -per patient last BM yesterday, KUB shows generalized constipation, appears unchanged to prior imaging -no evidence of transition point or SBO at this time -CT abdomen pelvis unremarkable Plan: -miralax, senna, suppository again today Resolved 2/6 Reporting epigastric pain Carafate added to Protonix --> Epigastric pain resolved GI consulted, no plans for EGD at this point 2/12 symptoms resolved since (4) Adult failure to thrive: Plan: -patient has had numerous hospitalizations in regards to failure to thrive at home -appears disheveled, found by EMS with pet at door, poor living conditions -high concern given psychiatric concerns and overall condition that patient will be unable to safely return home Plan: -PT/OT ordered -discussed with insurance case manager, filled out APS requested forms in regards to disposition -of note, over my past few days patient has showed medical capacity in regards to his medical conditions, but has not exhibited understanding or appreciation of his ability to take care of himself, and is a danger to self living on his own at this time (5) Cellulitis of left lower leg: Plan: Possible infected chronic right foot wound/ulcer right foot cellulitis, right lower extremity cellulitis Wound examined with wound care nurse at the bedside Blood cultures negative Wound culture ordered today Has completed 7-day course of IV cefepime however, patient's lower leg, right foot still with significant edema, and moderate erythema, warmth, mild tenderness Past microbiologic data reviewed Patient grew Pseudomonas, Morganella in January 2024 which was drug-resistant Started IV meropenem Consult podiatry Consult infectious disease 06/03 Recommendations by podiatry service, infectious disease service noted Appreciate the recommendations Per Dr. Lutz podiatry service, right lower extremity nonsalvageable, recommend discussion regarding amputation, patient not ready at this point, prefers to discuss with his usual outpatient technology infusion specialist Dr. Mckenzie Per Dr. Singh, no signs of active infection at this time Recommend to monitor off antibiotics Lasix IV ordered to address bilateral lower extremity edema 06/08 No signs of infection at this point continue Lasix and Spironolactone for leg edema (6) 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: Plan: -relatively controlled Plan: -insulin protocol -regular diet (7) PVD (peripheral vascular disease): Plan: -noted from prior, s/p left BKA amputation (8) Morbid obesity: Plan: -likely contributing to PVD and recurrent cellulitis (9) CKD (chronic kidney disease) stage 3, GFR 30-59 ml/min: Plan: -creatinine at baseline (10) NINA on CPAP: Plan: -continue CPAP (11) Cardiac defibrillator in situ: Plan: -noted (12) MDD (major depressive disorder), recurrent episode, mild: Plan: -patient has suicideal ideation without a plan, appears passive -patient is quite depressed, feels hopeless Plan: -psych consult, appreciate recs -zyprexa prn for agitation -consult spiritual care, psychology as well (13) Lymphedema: Plan: -likely contributing to cellulitis Plan: -f/u with [facility] 06/08 on Lasix and Spironolactone (14) Chronic pain syndrome: 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, 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 Plan: -continue home oxycodone -continue duloxetine 60 mg -continue pregablin 50 tid for severe neuropathic pain DVT px Coumadin Disposition pending insurance case manager working to transition patient to SNF plan of care discussed with patient in detail and at length all questions answered he is understanding, agreeable, comfortable with the plan of care he said he has been updating her daughter on his condition and plan of care Admission and Anticipated Discharge Date Admission Date: May 24, 2024 Subjective ff up for leg edema, etc seen resting in bed, comfortable feels fine overall no chest pain, dyspnea, palpitations, dizziness no abdominal pain no leg pain Review of Systems Review of Systems: all noted and negative except for above Physical Exam Physical Exam: General- oriented x 3, not in distress, speaks in sentences with no effort or accessory muscle use Eyes- anicteric Neck- no JVD Lungs- clear breath sounds bilaterally Heart- normal rate, regular rhythm; no murmurs Abdomen- normal bowel sounds, nondistended, soft, nontender Extremities-grade 1-2 lower ext edema R foot: heavy dressing in place Neuro- alert, oriented x 3; no gross focal neurologic deficits Skin- warm & dry Results & Data Results & Data Vital Signs (Past 12 Hours) Vital Signs Temp Pulse Resp BP BP Pulse Ox O2 Del Method 06/08/24 11:24 36.5 C 59 L 16 111/71 92 Room Air 06/08/24 09:52 Room Air 06/08/24 07:54 36.6 C 65 16 135/76 92 Room Air 06/08/24 04:00 36.6 C 68 18 146/85 H 93 Room Air all noted and reviewed including below
[2024-06-09 06:25] LABS: Basophils % (auto) 1.9 %; Eosinophils # (auto) 0.18 K/uL (0.00-0.50); Eosinophils % (auto) 3.4 %; Hematocrit (blood only) 39.5 % (42.0-52.0); Hemoglobin 11.9 g/dl (14.0-18.0); Immature Granulocytes # (auto) 0.03 K/uL (0.01-0.20); Immature Granulocytes % (auto) 0.6 %; Lymphocytes # (auto) 0.87 K/uL (1.20-3.40); Lymphocytes % (auto) 16.4 %; Mean Corpuscular Hemoglobin 26.7 pg (25.0-34.0); Mean Corpuscular Hgb Conc 30.1 g/dL (32.0-36.0); Mean Corpuscular Volume 88.8 fL (80.0-100.0); Monocytes # (auto) 0.53 K/uL (0.11-0.59); Neutrophils # (auto) 3.58 K/uL (1.40-6.50); Neutrophils % (auto) 67.7 %; Platelet Count 203 K/uL (130-400); RDW Coefficient of Variation 19.5 % (11.5-14.5); Red Blood Count 4.45 M/uL (4.70-6.10); White Blood Count 5.29 K/ul (4.8-10.8)
[2024-06-09 06:40] LABS: BUN Creatinine Ratio 19.8 (10-20); Calcium 8.4 mg/dl (8.6-10.3); Creatinine Clr Calc Pharmacy 142.3 ml/min
[2024-06-09 06:51] LABS: INR 2.1 (0.9-1.1); Prothrombin Time 21.4 Seconds (9.0-12.0)
--- NOTE | 2024-06-09 14:11 | Hospitalist Progress Note ---
Date of Service June 09, 2024 Assessment & Plan (1) Atrial fibrillation with RVR: Plan: (1) Atrial fibrillation with RVR: Plan: -noted RVR on arrival, placed on dilt drip Plan: -continue metoprolol succinate 150 mg daily -continue aldactone, lisinopril, well tolerated -continue warfarin, adjust based on INR (2) Chronic systolic heart failure: Plan: -noted on echo, EF slightly decreased to 30-35% - given IV Lasix, leg edema improving transition to PO, monitor BP closely also on spironolactone (3) Ileus: Plan: -resolved (4) Adult failure to thrive: Plan: -patient has had numerous hospitalizations in regards to failure to thrive at home -appears disheveled, found by EMS with pet at door, poor living conditions -high concern given psychiatric concerns and overall condition that patient will be unable to safely return home Plan: -previous attending discussed with director of casework department, filled out APS requested forms in regards to disposition (5) Cellulitis of left lower leg: Plan: Possible infected chronic right foot wound/ulcer right foot cellulitis, right lower extremity cellulitis Blood cultures negative Wound culture ordered today Completed 7 days of cefepime and meropenem/ Seen by Podiatry 06/03/2024; right lower extremity nonsalvageable, recommend discussion regarding amputation, patient not ready at this point, prefers to discuss with his usual outpatient toy department manager Dr. Mckenzie Seen by ID on 06/03/2024- didn't recommend prolong course of antiboitics. continue Lasix and Spironolactone for leg edema (6) 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: Plan: -relatively controlled Plan: -insulin protocol -regular diet (7) PVD (peripheral vascular disease): Plan: , s/p left BKA amputation. 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 It may contain grammatical, syntax or spelling errors. Any formal questions or concerns about the content, text or information contained within the body of this dictation should be directly addressed to the provider for clarification Admission and Anticipated Discharge Date Admission Date: May 24, 2024 Subjective Patient seen and examined at bedside. Comfortable; not in distress. Denies fever, chills, chest pain, shortness of breath, abdominal pain or urinary symptoms. No significant overnight events Review of Systems Review of Systems: All systems reviewed & are unremarkable except as noted in Subjective Physical Exam Physical Exam: General- oriented x 3, not in distress, speaks in sentences with no effort or accessory muscle use Eyes- anicteric Neck- no JVD Lungs- clear breath sounds bilaterally Heart- normal rate, regular rhythm; no murmurs Abdomen- normal bowel sounds, nondistended, soft, nontender Extremities-grade 1-2 lower ext edema R foot: dressing in place Neuro- alert, oriented x 3; no gross focal neurologic deficits Skin- warm & dry Results & Data Results & Data Vital Signs (Past 12 Hours) Vital Signs Temp Pulse Pulse Resp BP BP Pulse Ox 06/09/24 13:00 65 06/09/24 11:38 36.4 C L 65 18 122/82 92 06/09/24 09:45 06/09/24 07:40 36.5 C 66 18 109/64 90 06/09/24 03:39 36.7 C 61 16 129/78 91 O2 Del Method 06/09/24 13:00 06/09/24 11:38 Room Air 06/09/24 09:45 Room Air 06/09/24 07:40 Room Air 06/09/24 03:39 Room Air
[2024-06-10 09:22] LABS: INR 2.3 (0.9-1.1); Prothrombin Time 23.2 Seconds (9.0-12.0)
--- NOTE | 2024-06-10 10:00 | Pharmacy Report ---
Pharmacy Glycemic Short Note 2 - Date of Service June 10, 2024 - Glycemic Short BSG Results (Last 24 hours): 06/09/24 06/09/24 06/09/24 12:19 17:30 20:40 POC Glucose 159 H 158 H 173 H 06/10/24 08:24 POC Glucose 158 H OUTPATIENT ANTIDIABETIC REGIMEN: * Novolog pump * pre-meal target range: 90-150 mg/dL * post-meal target range: <220 mg/dL * Carb ratio: 1:3 g/unit * Correction factor: 1:30 unit/mg/dL * Basal rate: 7 units/hr (8815-5578), 6 units/hr (3337-7721), 7 units/hr (2885-0608) - 155 units/day HbA1c: 7.5% (02/09/24), 8.1% (04/2024 per H&P) ASSESSMENT: 06/10 * Patient has been well maintained on current insulin regimen. He received a total of 22 units of insulin yesterday (5 units were basal and 17 units were basal) * BSGs were mostly just slightly above goal range yesterday ([phone]/dL--upper end of goal range is 150). Fasting BSG was 158mg/dL this morning. No change to basal or bolus insulin at this time. 06/06 * Patient received a total of 51 units of insulin yesterday (5 were basal and 46 were bolus) * BSGs were above goal range most of yesterday ([phone]/dL) and then dropped to 81mg/dL at HS. * Fasting BSG was 108mg/dL this morning. The lower BSG last evening and into this morning is likely due to over correction at dinner time yesterday. CR was loosened starting with breakfast today. Will continue with Lantus 5 units q AM and Lantus scale (0, 5, 10 units) at bedtime. 06/03: * Patient received total of 16 units of insulin yesterday, low dose basal insulin resumed * Fasting BSG 142 mg/dL, continue scale for basal for now - may need to titrate up once diet improves more * no change to CF/CR 06/01: * Patient did not receive any insulin yesterday, no carbs documented * Fasting BSG 114 mg/dL - held AM basal * Lunch BSG trending up to 205 mg/dL, despite no PO intake at breakfast - will add conservative basal dose for HS in case BSGs trend upward. It has been a few days since any basal insulin given so may start to see increase in blood sugars 05/30: * Ben received no insulin yesterday * Fasting BSG this AM within goal range, continue to hold basal until PO appetite improves. * Unable to assess NovoLog since patient has not been eating due to nausea/abdominal cramping. 05/29: * Received 25 units of basal yesterday and 14 more units of bolus. BSGs were 60-12-253-104 mg/dL. * Patient continues to not eat today per RN. BSGs 108 and 104 mg/dL. Will hold basal until patient eating again. Considered low dose basal just so some is on board but RN concerned given hypoglycemia yesterday. * No changes to Novolog. 05/28: * Received 60 units of insulin yesterday, 50 of which were basal. BSGs were [phone] mg/dL. * Fasting BSG down to 90 mg/dL this AM. Reduced basal. * Lunchtime hypoglycemia at 52 mg/dL today. Required 45 g of carbs to bring BSG up to 76 mg/dL. Thankfully, patient was asymptomatic during this event. Unsure of reasoning for hypoglycemia but suspect basal overload combined with tight carb ratio. Will loosen carb ratio and hold lunch Novolog. Holding PM basal dose and will reassess tomorrow morning. 05/27: * BSGs have been fairly stable for the past 48 hours. * Pt refused his morning insulin yesterday, so BSGs have been trending up today, but still reasonable. * Pt has requested a regular diet rather than a diabetic diet. * Slight adjustment made to Lantus dosing this morning in an attempt to avoid hypoglycemia and discourage pt refusal of doses. * Pharmacy will continue to follow and adjust regimen as indicated. 05/24: * CG is a 58 year old male who presents to ED s/p mechanical fall out of w heelchair * Patient is well-known to pharmacy glycemic service s/p multiple admissions/consultations * Reasonably well-controlled T2DM as an outpatient with Novolog insulin pump (fairly large daily insulin doses) * Insulin pump removed prior to admission * Will utilize pump settings and prior inpatient glycemic data to guide initial SC insulin dosing PLAN FOR INPATIENT GLYCEMIC CONTROL: * Hold insulin pump * Basal insulin * Lantus 5 units qAM * Bolus insulin * NovoLog per scale ACHS or Q6hrs while NPO * Goal Range: Low 110 mg/dL - High 150 mg/dL * Correction Factor: 30 mg/dL/unit * Nutritional / Prandial insulin per carb ratio of 1 unit per 5 grams CHO consumed
--- NOTE | 2024-06-10 10:04 | Hospitalist Progress Note ---
Date of Service June 10, 2024 Assessment & Plan (1) Atrial fibrillation with RVR: Plan: (1) Atrial fibrillation with RVR: Plan: -noted RVR on arrival, placed on dilt drip Plan: -continue metoprolol succinate 150 mg daily -continue aldactone, lisinopril, well tolerated -continue warfarin, adjust based on INR (2) Chronic systolic heart failure: Plan: -noted on echo, EF slightly decreased to 30-35% - given IV Lasix, leg edema improving on po torsemide 20mg bid also on spironolactone (3) Ileus: Plan: -resolved (4) Adult failure to thrive: Plan: -patient has had numerous hospitalizations in regards to failure to thrive at home -appears disheveled, found by EMS with pet at door, poor living conditions -high concern given psychiatric concerns and overall condition that patient will be unable to safely return home Plan: -previous attending discussed with caser shoe parts, filled out APS requested forms in regards to disposition (5) Cellulitis of left lower leg: Plan: Possible infected chronic right foot wound/ulcer right foot cellulitis, right lower extremity cellulitis Blood cultures negative Wound culture ordered today Completed 7 days of cefepime and meropenem/ Seen by Podiatry 06/03/2024; right lower extremity nonsalvageable, recommend discussion regarding amputation, patient not ready at this point, prefers to discuss with his usual outpatient youth manager Dr. Mckenzie Seen by ID on 06/03/2024- didn't recommend prolong course of antiboitics. 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 It may contain grammatical, syntax or spelling errors. Any formal questions or concerns about the content, text or information contained within the body of this dictation should be directly addressed to the provider for clarification Admission and Anticipated Discharge Date Admission Date: May 24, 2024 Subjective Patient seen and examined at bedside. Comfortable; not in distress. Denies fever, chills, chest pain, shortness of breath, abdominal pain or urinary symptoms. No significant overnight events Review of Systems Review of Systems: All systems reviewed & are unremarkable except as noted in Subjective Physical Exam Physical Exam: General- oriented x 3, not in distress, speaks in sentences with no effort or accessory muscle use Eyes- anicteric Neck- no JVD Lungs- clear breath sounds bilaterally Heart- normal rate, regular rhythm; no murmurs Abdomen- normal bowel sounds, nondistended, soft, nontender Extremities-grade 1-2 lower ext edema R foot: dressing in place Neuro- alert, oriented x 3; no gross focal neurologic deficits Skin- warm & dry Results & Data Results & Data Vital Signs (Past 12 Hours) Vital Signs Temp Pulse Pulse Pulse Resp BP BP 06/10/24 08:04 65 06/10/24 07:40 36.6 C 66 16 121/84 06/10/24 03:30 36.5 C 70 18 134/78 06/09/24 23:55 06/09/24 23:07 70 06/09/24 23:00 36.5 C 61 20 109/80 Pulse Ox O2 Del Method 06/10/24 08:04 06/10/24 07:40 95 Room Air 06/10/24 03:30 92 Room Air 06/09/24 23:55 Room Air 06/09/24 23:07 06/09/24 23:00 95 Room Air
[2024-06-10] MEDS: TORSEMIDE 20 MG TAB PO SCH (14:36)
[2024-06-10] MEDS: HYDROmorphone HCL 2 MG TAB PO PRN (20:58)
[2024-06-11 07:38] LABS: Basophils # (auto) 0.11 K/uL (0.00-0.20); Basophils % (auto) 1.8 %; Eosinophils # (auto) 0.25 K/uL (0.00-0.50); Eosinophils % (auto) 4.2 %; Hematocrit (blood only) 39.3 % (42.0-52.0); Immature Granulocytes # (auto) 0.03 K/uL (0.01-0.20); Immature Granulocytes % (auto) 0.5 %; Lymphocytes # (auto) 0.97 K/uL (1.20-3.40); Lymphocytes % (auto) 16.2 %; Mean Corpuscular Hgb Conc 30.5 g/dL (32.0-36.0); Mean Corpuscular Volume 88.5 fL (80.0-100.0); Mean Platelet Volume 10.1 fL (9.4-12.4); Monocytes # (auto) 0.53 K/uL (0.11-0.59); Monocytes % (auto) 8.9 %; Neutrophils # (auto) 4.09 K/uL (1.40-6.50); Neutrophils % (auto) 68.4 %; Platelet Count 191 K/uL (130-400); RDW Coefficient of Variation 19.4 % (11.5-14.5); RDW Standard Deviation 62.4 fL (36.4-46.3); Red Blood Count 4.44 M/uL (4.70-6.10); White Blood Count 5.98 K/ul (4.8-10.8)
[2024-06-11 08:01] LABS: BUN Creatinine Ratio 18.3 (10-20); Calcium 8.5 mg/dl (8.6-10.3); Creatinine Clr Calc Pharmacy 116.1 ml/min; Potassium 4.2 mmol/L (3.5-5.1)
[2024-06-11 08:17] LABS: INR 2.8 (0.9-1.1); Prothrombin Time 27.6 Seconds (9.0-12.0)
--- NOTE | 2024-06-11 12:32 | Hospitalist Progress Note ---
Date of Service June 11, 2024 Assessment & Plan (1) Atrial fibrillation with RVR: Plan: (1) Atrial fibrillation with RVR: Plan: -noted RVR on arrival, placed on dilt drip Plan: -continue metoprolol succinate 150 mg daily -continue aldactone, lisinopril, well tolerated -continue warfarin, adjust based on INR -ventricular rate well controlled (2) Chronic systolic heart failure: Plan: -noted on echo, EF slightly decreased to 30-35% - given IV Lasix, leg edema improving on po torsemide 20mg bid also on spironolactone (3) Ileus: Plan: -resolved (4) Adult failure to thrive: Plan: -patient has had numerous hospitalizations in regards to failure to thrive at home -appears disheveled, found by EMS with pet at door, poor living conditions -high concern given psychiatric concerns and overall condition that patient will be unable to safely return home Plan: -previous attending discussed with embedded case manager, filled out APS requested forms in regards to disposition (5) Cellulitis of left lower leg: Plan: Possible infected chronic right foot wound/ulcer right foot cellulitis, right lower extremity cellulitis Blood cultures negative Wound culture ordered today Completed 7 days of cefepime and meropenem/ Seen by Podiatry 06/03/2024; right lower extremity nonsalvageable, recommend d iscussion regarding amputation, patient not ready at this point, prefers to discuss with his usual outpatient material flow engineer Dr. Mckenzie Seen by ID on 06/03/2024- didn't recommend prolong course of antiboitics. 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 It may contain grammatical, syntax or spelling errors. Any formal questions or concerns about the content, text or information contained within the body of this dictation should be directly addressed to the provider for clarification Admission and Anticipated Discharge Date Admission Date: May 24, 2024 Subjective Patient seen and examined at bedside. He is comfortable; not in distress He denies any pain or discomfort. He denies fever, chills, chest pain, shortness of breath or abdominal pain Vital signs are stable Review of Systems Review of Systems: All systems reviewed & are unremarkable except as noted in Subjective Physical Exam Physical Exam: General- oriented x 3, not in distress, speaks in sentences with no effort or accessory muscle use Eyes- anicteric Neck- no JVD Lungs- clear breath sounds bilaterally Heart- normal rate, regular rhythm; no murmurs Abdomen- normal bowel sounds, nondistended, soft, nontender Extremities-grade 1-2 lower ext edema R foot: dressing in place Neuro- alert, oriented x 3; no gross focal neurologic deficits Skin- warm & dry Results & Data Results & Data Vital Signs (Past 12 Hours) Vital Signs Temp Pulse Pulse Resp BP Pulse Ox O2 Del Method 06/11/24 11:44 36.9 C 73 16 117/69 91 Room Air 06/11/24 10:12 Room Air 06/11/24 07:26 36.6 C 74 16 110/68 92 Room Air 06/11/24 07:22 69 06/11/24 04:31 36.6 C 63 16 110/74 93 Room Air
[2024-06-12 07:10] LABS: INR 2.6 (0.9-1.1); Prothrombin Time 26.1 Seconds (9.0-12.0)
[2024-06-12 07:28] LABS: Calcium 8.6 mg/dl (8.6-10.3); Creatinine Clr Calc Pharmacy 124.3 ml/min
--- NOTE | 2024-06-12 12:56 | Hospitalist Progress Note ---
Date of Service June 12, 2024 Assessment & Plan (1) Atrial fibrillation with RVR: Plan: (1) Atrial fibrillation with RVR: Plan: -noted RVR on arrival, placed on dilt drip Plan: -continue metoprolol succinate 150 mg daily -continue aldactone, lisinopril, well tolerated -continue warfarin, adjust based on INR -ventricular rate well controlled (2) Chronic systolic heart failure: Plan: -noted on echo, EF slightly decreased to 30-35% - given IV Lasix, leg edema improving on po torsemide 20mg bid also on spironolactone (3) Ileus: Plan: -resolved (4) Adult failure to thrive: Plan: -patient has had numerous hospitalizations in regards to failure to thrive at home -appears disheveled, found by EMS with pet at door, poor living conditions -high concern given psychiatric concerns and overall condition that patient will be unable to safely return home Plan: -previous attending discussed with casework manager, filled out APS requested forms in regards to disposition (5) Cellulitis of left lower leg: Plan: Possible infected chronic right foot wound/ulcer right foot cellulitis, right lower extremity cellulitis Blood cultures negative Wound culture ordered today Completed 7 days of cefepime and meropenem/ Seen by Podiatry 06/03/2024; right lower extremity nonsalvageable, recommend d iscussion regarding amputation, patient not ready at this point, prefers to discuss with his usual outpatient cognos architect Dr. Mckenzie Seen by ID on 06/03/2024- didn't recommend prolong course of antiboitics. 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 It may contain grammatical, syntax or spelling errors. Any formal questions or concerns about the content, text or information contained within the body of this dictation should be directly addressed to the provider for clarification Admission and Anticipated Discharge Date Admission Date: May 24, 2024 Subjective Patient seen and examined at bedside. He is comfortable; not in distress He denies pain or discomfort No significant events overnight Review of Systems Review of Systems: All systems reviewed & are unremarkable except as noted in Subjective Physical Exam Physical Exam: General- oriented x 3, not in distress, speaks in sentences with no effort or accessory muscle use Eyes- anicteric Neck- no JVD Lungs- clear breath sounds bilaterally Heart- normal rate, regular rhythm; no murmurs Abdomen- normal bowel sounds, nondistended, soft, nontender Extremities-grade 1-2 lower ext edema R foot: dressing in place Neuro- alert, oriented x 3; no gross focal neurologic deficits Skin- warm & dry Results & Data Results & Data Vital Signs (Past 12 Hours) Vital Signs Temp Pulse Pulse Resp BP Pulse Ox O2 Del Method 06/12/24 12:07 36.6 C 78 20 99/62 L 94 Room Air 06/12/24 08:03 36.5 C 60 16 122/76 92 Room Air 06/12/24 07:11 65 06/12/24 03:20 36.4 C L 66 16 112/71 92 Room Air
[2024-06-12] MEDS: HYDROmorphone HCL 2 MG TAB PO PRN (17:58)
[2024-06-13 07:33] LABS: INR 2.5 (0.9-1.1); Prothrombin Time 24.7 Seconds (9.0-12.0)
[2024-06-13 07:48] LABS: BUN Creatinine Ratio 22.4 (10-20); Calcium 8.6 mg/dl (8.6-10.3); Creatinine Clr Calc Pharmacy 127.1 ml/min; Potassium 4.1 mmol/L (3.5-5.1)
--- NOTE | 2024-06-13 09:47 | Hospitalist Progress Note ---
Date of Service June 13, 2024 Assessment & Plan (1) Atrial fibrillation with RVR: Plan: (1) Atrial fibrillation with RVR: Plan: -noted RVR on arrival, placed on dilt drip Plan: -continue metoprolol succinate 150 mg daily -continue aldactone, lisinopril, well tolerated -continue warfarin, adjust based on INR -ventricular rate well controlled (2) Chronic systolic heart failure: Plan: -noted on echo, EF slightly decreased to 30-35% - given IV Lasix, leg edema improving on po torsemide 20mg bid also on spironolactone (3) Ileus: Plan: -resolved (4) Adult failure to thrive: Plan: -patient has had numerous hospitalizations in regards to failure to thrive at home -appears disheveled, found by EMS with pet at door, poor living conditions -high concern given psychiatric concerns and overall condition that patient will be unable to safely return home -previous attending discussed with case resolution specialist, filled out APS requested forms in regards to disposition (5) Cellulitis of left lower leg: Plan: Possible infected chronic right foot wound/ulcer right foot cellulitis, right lower extremity cellulitis Blood cultures negative Wound culture ordered today Completed 7 days of cefepime and meropenem/ Seen by Podiatry 06/03/2024; right lower extremity nonsalvageable, recommend discussion regarding amputation, patient not ready at this point, prefers to discuss with his usual outpatient tobacco stripper hand Dr. Mckenzie Seen by ID on 06/03/2024- didn't recommend prolong course of antiboitics. 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 It may contain grammatical, syntax or spelling errors. Any formal questions or concerns about the content, text or information contained within the body of this dictation should be directly addressed to the provider for clarification Admission and Anticipated Discharge Date Admission Date: May 24, 2024 Subjective Patient seen and examined at bedside. Comfortable; not in distress. Denies fever, chills, chest pain, shortness of breath, abdominal pain or urinary symptoms. No significant overnight events Review of Systems Review of Systems: All systems reviewed & are unremarkable except as noted in Subjective Physical Exam Physical Exam: General- oriented x 3, not in distress, speaks in sentences with no effort or accessory muscle use Eyes- anicteric Neck- no JVD Lungs- clear breath sounds bilaterally Heart- normal rate, regular rhythm; no murmurs Abdomen- normal bowel sounds, nondistended, soft, nontender Extremities-grade 1-2 lower ext edema R foot: dressing in place Neuro- alert, oriented x 3; no gross focal neurologic deficits Skin- warm & dry Results & Data Results & Data Vital Signs (Past 12 Hours) Vital Signs Temp Pulse Pulse Resp BP Pulse Ox O2 Del Method 06/13/24 08:39 Room Air 06/13/24 07:45 70 06/13/24 07:40 36.6 C 63 16 108/67 94 Room Air 06/13/24 05:32 73 16 138/84 92 Room Air 06/13/24 03:04 36.4 C L 67 16 154/73 H 92 Room Air 06/12/24 23:40 Room Air 06/12/24 23:18 36.5 C 63 16 121/72 93 Room Air 06/12/24 21:50 57 L
--- NOTE | 2024-06-13 10:39 | Pharmacy Report ---
Pharmacy Glycemic Short Note 2 - Date of Service June 13, 2024 - Glycemic Short BSG Results (Last 24 hours): 06/12/24 06/12/24 06/12/24 12:20 17:02 17:03 Glucose POC Glucose 105 H 396 H* 237 H 06/12/24 06/12/24 06/13/24 17:04 19:44 06:54 Glucose 137 H POC Glucose 211 H 119 H 06/13/24 06/13/24 06/13/24 08:00 08:29 08:30 Glucose POC Glucose 309 H* 128 H 132 H OUTPATIENT ANTIDIABETIC REGIMEN: * Novolog pump * pre-meal target range: 90-150 mg/dL * post-meal target range: <220 mg/dL * Carb ratio: 1:3 g/unit * Correction factor: 1:30 unit/mg/dL * Basal rate: 7 units/hr (2829-2736), 6 units/hr (2782-4205), 7 units/hr (0318-1854) - 155 units/day HbA1c: 7.5% (02/09/24), 8.1% (04/2024 per H&P) ASSESSMENT: 06/13 * Patient received total of 33 units of insulin yesterday, of which 5 units were basal insulin * Fasting BSG 137 mg/dL - continue same * BSGs trending up last evening with dinner, however repeat checks taken to correlate result, ~211 mg/dL (unclear if initial check of 396 mg/dL was something on patient's finger). Similar instance this morning, however repeat checks confirm value of 137 mg/dL * No changes to CF/CR for now 06/10 * Patient has been well maintained on current insulin regimen. He received a total of 22 units of insulin yesterday (5 units were basal and 17 units were basal) * BSGs were mostly just slightly above goal range yesterday (720-132-388-173mg/dL--upper end of goal range is 150). Fasting BSG was 158mg/dL this morning. No change to basal or bolus insulin at this time. 06/06 * Patient received a total of 51 units of insulin yesterday (5 were basal and 46 were bolus) * BSGs were above goal range most of yesterday ([phone]/dL) and then dropped to 81mg/dL at HS. * Fasting BSG was 108mg/dL this morning. The lower BSG last evening and into this morning is likely due to over correction at dinner time yesterday. CR was loosened starting with breakfast today. Will continue with Lantus 5 units q AM and Lantus scale (0, 5, 10 units) at bedtime. 06/03: * Patient received total of 16 units of insulin yesterday, low dose basal insulin resumed * Fasting BSG 142 mg/dL, continue scale for basal for now - may need to titrate up once diet improves more * no change to CF/CR 06/01: * Patient did not receive any insulin yesterday, no carbs documented * Fasting BSG 114 mg/dL - held AM basal * Lunch BSG trending up to 205 mg/dL, despite no PO intake at breakfast - will add conservative basal dose for HS in case BSGs trend upward. It has been a few days since any basal insulin given so may start to see increase in blood sugars 05/30: * Ben received no insulin yesterday * Fasting BSG this AM within goal range, continue to hold basal until PO appetite improves. * Unable to assess NovoLog since patient has not been eating due to nausea/abdominal cramping. 05/29: * Received 25 units of basal yesterday and 14 more units of bolus. BSGs were 38-11-647-104 mg/dL. * Patient continues to not eat today per RN. BSGs 108 and 104 mg/dL. Will hold basal until patient eating again. Considered low dose basal just so some is on board but RN concerned given hypoglycemia yesterday. * No changes to Novolog. 05/28: * Received 60 units of insulin yesterday, 50 of which were basal. BSGs were [phone] mg/dL. * Fasting BSG down to 90 mg/dL this AM. Reduced basal. * Lunchtime hypoglycemia at 52 mg/dL today. Required 45 g of carbs to bring BSG up to 76 mg/dL. Thankfully, patient was asymptomatic during this event. Unsure of reasoning for hypoglycemia but suspect basal overload combined with tight carb ratio. Will loosen carb ratio and hold lunch Novolog. Holding PM basal dose and will reassess tomorrow morning. 05/27: * BSGs have been fairly stable for the past 48 hours. * Pt refused his morning insulin yesterday, so BSGs have been trending up today, but still reasonable. * Pt has requested a regular diet rather than a diabetic diet. * Slight adjustment made to Lantus dosing this morning in an attempt to avoid hypoglycemia and discourage pt refusal of doses. * Pharmacy will continue to follow and adjust regimen as indicated. 05/24: * CG is a 58 year old male who presents to ED s/p mechanical fall out of wheelchair * Patient is well-known to pharmacy glycemic service s/p multiple admissions/consultations * Reasonably well-controlled T2DM as an outpatient with Novolog insulin pump (fairly large daily insulin doses) * Insulin pump removed prior to admission * Will utilize pump settings and prior inpatient glycemic data to guide initial SC insulin dosing PLAN FOR INPATIENT GLYCEMIC CONTROL: * Hold insulin pump * Basal insulin * Lantus 5 units qAM * Bolus insulin * NovoLog per scale ACHS or Q6hrs while NPO * Goal Range: Low 110 mg/dL - High 150 mg/dL * Correction Factor: 30 mg/dL/unit * Nutritional / Prandial insulin per carb ratio of 1 unit per 7 grams CHO consumed
--- NOTE | 2024-06-13 15:14 | Podiatry Progress Note ---
Assessment & Plan (1) Osteomyelitis of ankle and foot: (2) Status post incision and drainage: (3) Diabetic ulcer of right foot associated with diabetes mellitus due to under lying condition, with necrosis of bone: (4) History of below-knee amputation of left lower extremity: (5) Acute osteomyelitis of right calcaneus: Plan Diabetic ulcer of the right foot with underlying osteomyelitis: Non-salvageable right foot. Recommend amputation of the RLE. Explained to patient that his right foot would is not likely to heal and no further surgical intervention to the foot is recommended. Pt concerned for quality of life following b/l amputation which is understandable. ID recommendations reviewed. Plain film radiographs reviewed. Lengthy discussion again regarding the salvageability of his right foot. I explained to patient again that given the extent of ulceration with extensive exposed bone and joint I do not believe it is possible to salvage the foot in any meaningful way even with heroic efforts. Though it is unfortunate, especially given amputation of the left lower extremity, I believe amputation of the right lower extremity would be in his best interest from an overall health standpoint. Patient verbalizes understanding however he would still prefer to speak with his home paper cup machine tender Dr. Mcknezie prior to making any decision to move forward with amputation. Though not a reasonable definitive treatment option patient may benefit from a course of suppressive p.o. antibiotics at time of discharge in attempt to prevent systemic infection stemming from the right lower until he has time to make his final decision regarding the right lower extremity. Admission and Anticipated Discharge Date Admission Date: May 24, 2024 Subjective Patient seen resting comfortably in hospital bed. Appears more fatigued and less optimistic than noted on previous evaluation. Denies nausea vomiting fever chills. Denies pain in the right foot. Dressing to the right foot is clean dry and intact appears to been placed yesterday. Review of Systems Review of Systems: Denies nausea, vomiting, fever, chills, shortness of breath, chest pain, malaise. Denies pain in the right foot. She reports recent increased swelling in the bilateral lower extremity which is inhibited the use of his prosthetic for the left lower extremity. Review of systems otherwise negative detailed in history of present illness. Physical Exam Physical Exam: Const: Appears well developed and well nourished. No signs of acute distress present. CV: Extremities: No cyanosis Capillary refill time is less than 3 seconds all digits of the right foot. Posterior tibial and dorsalis pedis pulses are lightly right foot palpable right foot. Lymph: No palpable or visible regional lymphadenopathy. Skin: Chronic venous stasis changes to the right lower leg with open wound. Neuro: Loss of protective sensation to the right foot Psych: Mood/Affect: Mood is normal. Affect is normal. Cognition: Orientation is intact to person, place and time. Focused lower extremity musculoskeletal exam: Leg: No pain with compression of the calf muscle. Right ankle: Normal to inspection and palpation. No swelling. No tenderness. Motor strength is intact. Range of motion pain-free and unlimited. Right foot: Large ulceration of the plantar aspect of the right foot. Wound probes to the level of bone at the plantar calcaneus remnant in several locations. Wound probes to the level of what seems to be midtarsal joints possibly calcaneocuboid joint or distally within the base. Wound bed is mixed granular, fibrotic, fascial, slough and bone tissue. Again noting significant purulent drainage to the wound bed noted on dressing removal however unable to express any drainage. wound probes 3 cm along the lateral wall of the calcaneus. Results & Data Results & Data Vital Signs (Past 12 Hours) Vital Signs Temp Pulse Pulse Resp BP Pulse Ox O2 Del Method 06/13/24 13:52 96/61 L 06/13/24 12:02 94/57 L 06/13/24 11:47 94/57 L 06/13/24 10:58 36.4 C L 66 18 96/63 L 92 Room Air 06/13/24 08:39 Room Air 06/13/24 07:45 70 06/13/24 07:40 36.6 C 63 16 108/67 94 Room Air 06/13/24 05:32 73 16 138/84 92 Room Air 06/13/24 03:04 36.4 C L 67 16 154/73 H 92 Room Air Diagnostic Findings X-rays right foot 06/03/2024: No prior studies are available for comparison. FINDINGS: Large cutaneous ulcer is seen involving the hind and midfoot. Destructive/resorptive bony changes is seen involving the inferior surface of the calcaneus and possibly cuboid bone suggesting osteomyelitis/Charcot foot. Heterogenous calcifications at the heel region. Defect of the distal phalanx of the big toe. Bony osteopenia and lucent areas of the tibiotalar and intertarsal articulations. Atheromatous calcifications of the foot vessels. IMPRESSION: 1. The above-described signs are suggestive of diabetic foot with soft tissue and bony changes as described suggesting osteomyelitis/Charcot foot correlation with previous studies and the clinical data is advised. 2. MRI is also advised if clinically warranted. Coding Level of Care Code 02750 SUB INP/OBS CARE 2/35MIN Diagnoses Osteomyelitis of ankle and foot M86.9 Status post incision and drainage Z98.890 Diabetic ulcer of other part of right foot associated with diabetes mellitus due to underlying condition, with necrosis of bone E08.621; L97.514 Diabetic foot ulcer location: other History of below-knee amputation of left lower extremity Z89.512 Acute osteomyelitis of right calcaneus M86.171 (3) Diabetic ulcer of right foot associated with diabetes mellitus due to underlying condition, with necrosis of bone Diabetic foot ulcer location: other Qualified Code(s): E08.621 - Diabetes mellitus due to underlying condition with foot ulcer; L97.514 - Non-pressure chronic ulcer of other part of right foot with necrosis of bone
[2024-06-14 07:46] LABS: Blood Urea Nitrogen 22 mg/dl (6-23); Calcium 8.6 mg/dl (8.6-10.3); Carbon Dioxide 32 mmol/L (21-32); Chloride 101 mmol/L (98-107); Creatinine Clr Calc Pharmacy 118.6 ml/min; Glucose 171 mg/dl (70-99(Fasting))
[2024-06-14] MEDS: TORSEMIDE 20 MG TAB PO SCH (08:05)
--- NOTE | 2024-06-14 11:31 | Hospitalist Progress Note ---
Date of Service June 14, 2024 Assessment & Plan (1) Atrial fibrillation with RVR: Plan: (1) Atrial fibrillation with RVR: Plan: -noted RVR on arrival, placed on dilt drip Plan: -continue metoprolol succinate 150 mg daily -continue aldactone, lisinopril, well tolerated -continue warfarin, adjust based on INR -ventricular rate well controlled (2) Chronic systolic heart failure: Plan: -noted on echo, EF slightly decreased to 30-35% - given IV Lasix, leg edema improving on po torsemide 20mg bid also on spironolactone (3) Ileus: Plan: -resolved (4) Adult failure to thrive: Plan: -patient has had numerous hospitalizations in regards to failure to thrive at home -appears disheveled, found by EMS with pet at door, poor living conditions -high concern given psychiatric concerns and overall condition that patient will be unable to safely return home -previous attending discussed with showcase trimmer, filled out APS requested forms in regards to disposition (5) Cellulitis of left lower leg: Plan: Possible infected chronic right foot wound/ulcer right foot cellulitis, right lower extremity cellulitis Blood cultures negative Wound culture ordered today Completed 7 days of cefepime and meropenem/ Seen by Podiatry 06/03/2024; right lower extremity nonsalvageable, recommend discussion regarding amputation, patient not ready at this point, prefers to discuss with his usual outpatient director behavioral health Dr. Mceknzie Seen by ID on 06/03/2024- didn't recommend prolong course of antiboitics. 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 It may contain grammatical, syntax or spelling errors. Any formal questions or concerns about the content, text or information contained within the body of this dictation should be directly addressed to the provider for clarification Admission and Anticipated Discharge Date Admission Date: May 24, 2024 Subjective Patient seen and examined at bedside. Comfortable; not in distress. Denies fever, chills, chest pain, shortness of breath, abdominal pain or urinary symptoms. No significant overnight events Review of Systems Review of Systems: All systems reviewed & are unremarkable except as noted in Subjective Physical Exam Physical Exam: General- oriented x 3, not in distress, speaks in sentences with no effort or accessory muscle use Eyes- anicteric Neck- no JVD Lungs- clear breath sounds bilaterally Heart- normal rate, regular rhythm; no murmurs Abdomen- normal bowel sounds, nondistended, soft, nontender Extremities-grade 1-2 lower ext edema R foot: dressing in place Neuro- alert, oriented x 3; no gross focal neurologic deficits Skin- warm & dry Results & Data Results & Data Vital Signs (Past 12 Hours) Vital Signs Temp Pulse Pulse Resp BP Pulse Ox O2 Del Method 06/14/24 08:00 Room Air 06/14/24 07:44 36.5 C 71 18 124/75 94 Room Air 06/14/24 07:00 65 06/14/24 02:13 36.5 C 66 16 123/70 92 Room Air
[2024-06-15 09:49] LABS: INR 2.3 (0.9-1.1); Prothrombin Time 22.9 Seconds (9.0-12.0)
[2024-06-15 10:01] LABS: Creatinine Clr Calc Pharmacy 117.1 ml/min; Potassium 3.7 mmol/L (3.5-5.1)
--- NOTE | 2024-06-15 14:55 | Hospitalist Progress Note ---
Date of Service June 15, 2024 Assessment & Plan (1) Atrial fibrillation with RVR: Plan: Atrial fibrillation with RVR: s/p diltiazem drip at arrival. c/w toprol xl 150 mg daily. Rate controlled for now. c/w Coumadin w/ pt/inr monitoring. Coumadin clinic on [place]. -continue aldactone, lisinopril, well tolerated Chronic systolic heart failure: noted on echo, EF slightly decreased to 30-35%. s/p iv diuresis, now on home dose of torsemide 20 mg bid and Aldactone 25 mg daily. continue. c/w FR 1800 ml and low Na diet. Ileus: -resolved Adult failure to thrive: -patient has had numerous hospitalizations in regards to failure to thrive at home -appears disheveled, found by EMS with pet at door, poor living conditions -high concern given psychiatric concerns and overall condition that patient will be unable to safely return home -previous attending discussed with correctional counselor/case manager, filled out APS requested forms in regards to disposition Cellulitis of left lower leg: Possible infected chronic right foot wound/ulcer right foot cellulitis, right lower extremity cellulitis Blood cultures negative Wound culture neg Completed 7 days of cefepime and meropenem Seen by Podiatry 06/03/2024; right lower extremity nonsalvageable, recommend discussion regarding amputation, patient not ready at this point, prefers to discuss with his usual outpatient parking lot spotter Dr. Mckenzie Seen by ID on 06/03/2024- didn't recommend prolong course of antiboitics. continue torsemide and Spironolactone for leg edema Other chronic medical conditions: Continue with/resume home meds as and when able. T2DM: Sliding scale insulin. PVD: Status post left BKA amputation. Continue with home aspirin and Lipitor. Morbid obesity: Likely contributed to PVD and recurrent cellulitis. Counseling done. CKD: CKD stage III, stable. NINA on CPAP: Continue CPAP at bedtime. Cardiac defibrillator in situ: Noted Major depression disorder: Continue with duloxetine Lymphedema: Likely contributing to cellulitis. Follow-up with lymphedema clinic as an outpatient. Chronic pain syndrome: Checked PDMP, continue on home oxycodone. Dilaudid added for breakthrough pain. C/w duloxetine and pregabalin. DVT px: Coumadin Disposition: pending. correctional counselor/case manager working to transition patient to SNF Admission and Anticipated Discharge Date Admission Date: May 24, 2024 Subjective Patient seen and examined at bedside. Comfortable; not in distress. Denies fever, chills, chest pain, shortness of breath, abdominal pain or urinary symptoms. No significant overnight events Physical Exam Physical Exam: General- oriented x 3, not in distress, speaks in sentences with no effort or accessory muscle use Eyes- anicteric Neck- no JVD Lungs- clear breath sounds bilaterally Heart- normal rate, regular rhythm; no murmurs Abdomen- normal bowel sounds, nondistended, soft, nontender Extremities-grade 1-2 lower ext edema R foot: dressing in place. LLE BKA noted. Neuro- no gross focal neurologic deficits Skin- warm & dry Results & Data Results & Data Vital Signs (Past 12 Hours) Vital Signs Temp Pulse Pulse Resp BP BP Pulse Ox 06/15/24 11:46 36.7 C 67 13 98/52 L 95 06/15/24 09:20 66 104/69 06/15/24 07:44 36.4 C L 69 14 100/64 95 06/15/24 04:19 36.5 C 65 20 102/66 93 O2 Del Method 06/15/24 11:46 Room Air 06/15/24 09:20 06/15/24 07:44 Room Air 06/15/24 04:19 Room Air
[2024-06-16] MEDS: ACETAMINOPHEN 1,000 MG/100 ML VIAL IV STA (01:15)
[2024-06-16] MEDS: LANTUS PER UNIT CHARGE SC SCH ×2 (10:29→21:17)
[2024-06-16] MEDS: TORSEMIDE 20 MG TAB PO SCH (10:31)
--- NOTE | 2024-06-16 15:01 | Hospitalist Progress Note ---
Date of Service June 16, 2024 Assessment & Plan (1) Atrial fibrillation with RVR: Plan: Atrial fibrillation with RVR: s/p diltiazem drip at arrival. c/w toprol xl 150 mg daily. Rate controlled for now. c/w Coumadin w/ pt/inr monitoring. Coumadin clinic on [place]. -continue aldactone, lisinopril, well tolerated Chronic systolic heart failure: noted on echo, EF slightly decreased to 30-35%. s/p iv diuresis, now on home dose of torsemide 20 mg bid and Aldactone 25 mg daily. continue. Pt want FR to be lifted hence no FR, c/w low Na diet. Ileus: -resolved Adult failure to thrive: -patient has had numerous hospitalizations in regards to failure to thrive at home -appears disheveled, found by EMS with pet at door, poor living conditions -high concern given psychiatric concerns and overall condition that patient will be unable to safely return home -previous attending discussed with director of casework, filled out APS requested forms in regards to disposition Cellulitis of left lower leg: Possible infected chronic right foot wound/ulcer right foot cellulitis, right lower extremity cellulitis Blood cultures negative Wound culture neg Completed 7 days of cefepime and meropenem Seen by Podiatry 06/03/2024; right lower extremity nonsalvageable, recommend discussion regarding amputation, patient not ready at this point, prefers to discuss with his usual outpatient it sales consultant Dr. Mckenzie Seen by ID on 06/03/2024- didn't recommend prolong course of antiboitics. continue torsemide and Spironolactone for leg edema Other chronic medical conditions: Continue with/resume home meds as and when able. T2DM: Sliding scale insulin. PVD: Status post left BKA amputation. Continue with home aspirin and Lipitor. Morbid obesity: Likely contributed to PVD and recurrent cellulitis. Counseling done. CKD: CKD stage III, stable. NINA on CPAP: Continue CPAP at bedtime. Cardiac defibrillator in situ: Noted Major depression disorder: Continue with duloxetine Lymphedema: Likely contributing to cellulitis. Follow-up with lymphedema clinic as an outpatient. Chronic pain syndrome: Checked PDMP, continue on home oxycodone. Dilaudid added for breakthrough pain. C/w duloxetine and pregabalin. DVT px: Coumadin Disposition: pending. director of casework working to transition patient to SNF Admission and Anticipated Discharge Date Admission Date: May 24, 2024 Subjective Patient seen and examined at bedside. Upset at bedside exam, NAD. He is swearing at me "fuck you for putting me on fluid restriction". He was reminded he was on fluid restriction all along but continues to swear at me multiple times using words such as "fuck you" "arsehole". Since pt doesn't want fluid restriction, will lift it. No other complaints. No significant overnight events Physical Exam Physical Exam: General- alert and awake, not in distress, speaks in sentences with no effort or accessory muscle use Eyes- anicteric Neck- no JVD Lungs- clear breath sounds bilaterally Heart- normal rate, regular rhythm; no murmurs Abdomen- normal bowel sounds, nondistended, soft, nontender Extremities-grade 1-2 lower ext edema R foot: dressing in place. LLE BKA noted. Neuro- no gross focal neurologic deficits Skin- warm & dry Results & Data Results & Data Vital Signs (Past 12 Hours) Vital Signs Temp Pulse Resp BP Pulse Ox O2 Del Method 06/16/24 10:50 36.4 C L 79 16 111/67 94 Room Air 06/16/24 08:01 36.5 C 60 18 101/66 94 Room Air 06/16/24 05:00 36.6 C 76 20 120/72 92 Room Air
[2024-06-16 15:16] LABS: BUN Creatinine Ratio 20.2 (10-20); Calcium 8.7 mg/dl (8.6-10.3); Potassium 3.7 mmol/L (3.5-5.1)
[2024-06-16 15:20] LABS: INR 2.2 (0.9-1.1); Prothrombin Time 22.6 Seconds (9.0-12.0)
[2024-06-17 06:37] LABS: BUN Creatinine Ratio 19.2 (10-20); Calcium 8.8 mg/dl (8.6-10.3); Creatinine Clr Calc Pharmacy 113.5 ml/min; Potassium 3.5 mmol/L (3.5-5.1)
[2024-06-17 06:59] LABS: INR 2.1 (0.9-1.1); Prothrombin Time 21.8 Seconds (9.0-12.0)
--- NOTE | 2024-06-17 12:53 | Pharmacy Report ---
Pharmacy Glycemic Short Note 2 - Date of Service June 17, 2024 - Glycemic Short BSG Results (Last 24 hours): 06/16/24 06/16/24 06/16/24 14:25 16:49 20:18 Glucose 195 H POC Glucose 184 H 151 H 06/17/24 06/17/24 06/17/24 05:40 08:27 11:48 Glucose 162 H POC Glucose 145 H 212 H OUTPATIENT ANTIDIABETIC REGIMEN: * Novolog pump * pre-meal target range: 90-150 mg/dL * post-meal target range: <220 mg/dL * Carb ratio: 1:3 g/unit * Correction factor: 1:30 unit/mg/dL * Basal rate: 7 units/hr (8111-1065), 6 units/hr (1111-2744), 7 units/hr (1230-9256) - 155 units/day HbA1c: 7.5% (02/09/24), 8.1% (04/2024 per H&P) ASSESSMENT: 06/17 * Patient received total of 26 units of insulin yesterday, of which 7 units were basal insulin * Fasting BSG 145 mg/dL - will continue same basal for now * No change to CF/CR today 06/13 * Patient received total of 33 units of insulin yesterday, of which 5 units were basal insulin * Fasting BSG 137 mg/dL - continue same * BSGs trending up last evening with dinner, however repeat checks taken to correlate result, ~211 mg/dL (unclear if initial check of 396 mg/dL was something on patient's finger). Similar instance this morning, however repeat checks confirm value of 137 mg/dL * No changes to CF/CR for now 06/10 * Patient has been well maintained on current insulin regimen. He received a total of 22 units of insulin yesterday (5 units were basal and 17 units were basal) * BSGs were mostly just slightly above goal range yesterday ([phone]/dL--upper end of goal range is 150). Fasting BSG was 158mg/dL this morning. No change to basal or bolus insulin at this time. 06/06 * Patient received a total of 51 units of insulin yesterday (5 were basal and 46 were bolus) * BSGs were above goal range most of yesterday (686-095-050kn/dL) and then dropped to 81mg/dL at HS. * Fasting BSG was 108mg/dL this morning. The lower BSG last evening and into this morning is likely due to over correction at dinner time yesterday. CR was loosened starting with breakfast today. Will continue with Lantus 5 units q AM and Lantus scale (0, 5, 10 units) at bedtime. 06/03: * Patient received total of 16 units of insulin yesterday, low dose basal insulin resumed * Fasting BSG 142 mg/dL, continue scale for basal for now - may need to titrate up once diet improves more * no change to CF/CR 06/01: * Patient did not receive any insulin yesterday, no carbs documented * Fasting BSG 114 mg/dL - held AM basal * Lunch BSG trending up to 205 mg/dL, despite no PO intake at breakfast - will add conservative basal dose for HS in case BSGs trend upward. It has been a few days since any basal insulin given so may start to see increase in blood sugars 05/30: * Ben received no insulin yesterday * Fasting BSG this AM within goal range, continue to hold basal until PO appetite improves. * Unable to assess NovoLog since patient has not been eating due to nausea/abdominal cramping. 05/29: * Received 25 units of basal yesterday and 14 more units of bolus. BSGs were 08-29-328-104 mg/dL. * Patient continues to not eat today per RN. BSGs 108 and 104 mg/dL. Will hold basal until patient eating again. Considered low dose basal just so some is on board but RN concerned given hypoglycemia yesterday. * No changes to Novolog. 05/28: * Received 60 units of insulin yesterday, 50 of which were basal. BSGs were [phone] mg/dL. * Fasting BSG down to 90 mg/dL this AM. Reduced basal. * Lunchtime hypoglycemia at 52 mg/dL today. Required 45 g of carbs to bring BSG up to 76 mg/dL. Thankfully, patient was asymptomatic during this event. Unsure of reasoning for hypoglycemia but suspect basal overload combined with tight carb ratio. Will loosen carb ratio and hold lunch Novolog. Holding PM basal dose and will reassess tomorrow morning. 05/27: * BSGs have been fairly stable for the past 48 hours. * Pt refused his morning insulin yesterday, so BSGs have been trending up today, but still reasonable. * Pt has requested a regular diet rather than a diabetic diet. * Slight adjustment made to Lantus dosing this morning in an attempt to avoid hypoglycemia and discourage pt refusal of doses. * Pharmacy will continue to follow and adjust regimen as indicated. 05/24: * CG is a 58 year old male who presents to ED s/p mechanical fall out of wheelchair * Patient is well-known to pharmacy glycemic service s/p multiple admissions/consultations * Reasonably well-controlled T2DM as an outpatient with Novolog insulin pump (fairly large daily insulin doses) * Insulin pump removed prior to admission * Will utilize pump settings and prior inpatient glycemic data to guide initial SC insulin dosing PLAN FOR INPATIENT GLYCEMIC CONTROL: * Hold insulin pump * Basal insulin * Lantus 7 units qhs * Bolus insulin * NovoLog per scale ACHS or Q6hrs while NPO * Goal Range: Low 110 mg/dL - High 150 mg/dL * Correction Factor: 30 mg/dL/unit * Nutritional / Prandial insulin per carb ratio of 1 unit per 7 grams CHO consumed
--- NOTE | 2024-06-17 16:13 | Hospitalist Progress Note ---
Date of Service June 17, 2024 Assessment & Plan (1) Atrial fibrillation with RVR: Plan: Atrial fibrillation with RVR: s/p diltiazem drip at arrival. c/w toprol xl 150 mg daily. Rate controlled for now. c/w Coumadin w/ pt/inr monitoring. Coumadin clinic on [place]. -continue aldactone, lisinopril, well tolerated Chronic systolic heart failure: noted on echo, EF slightly decreased to 30-35%. s/p iv diuresis, now on home dose of torsemide 20 mg bid and Aldactone 25 mg daily. continue. Pt want FR to be lifted hence no FR, c/w low Na diet. Ileus: -resolved Adult failure to thrive: -patient has had numerous hospitalizations in regards to failure to thrive at home -appears disheveled, found by EMS with pet at door, poor living conditions -high concern given psychiatric concerns and overall condition that patient will be unable to safely return home -previous attending discussed with case finisher, filled out APS requested forms in regards to disposition Cellulitis of left lower leg: Possible infected chronic right foot wound/ulcer right foot cellulitis, right lower extremity cellulitis Blood cultures negative Wound culture neg Completed 7 days of cefepime and meropenem Seen by Podiatry 06/03/2024; right lower extremity nonsalvageable, recommend discussion regarding amputation, patient not ready at this point, prefers to discuss with 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 Mckenzie Seen by ID on 06/03/2024- didn't recommend prolong course of antiboitics. continue torsemide and Spironolactone for leg edema Other chronic medical conditions: Continue with/resume home meds as and when able. T2DM: Sliding scale insulin. PVD: Status post left BKA amputation. Continue with home aspirin and Lipitor. Morbid obesity: Likely contributed to PVD and recurrent cellulitis. Counseling done. CKD: CKD stage III, stable. NINA on CPAP: Continue CPAP at bedtime. Cardiac defibrillator in situ: Noted Major depression disorder: Continue with duloxetine Lymphedema: Likely contributing to cellulitis. Follow-up with lymphedema clinic as an outpatient. Chronic pain syndrome: Checked PDMP, continue on home oxycodone. Dilaudid added for breakthrough pain. C/w duloxetine and pregabalin. DVT px: Coumadin Disposition: pending. case finisher working to transition patient to SNF Admission and Anticipated Discharge Date Admission Date: May 24, 2024 Subjective Patient seen and examined at bedside. No new complaints. No significant overnight events Physical Exam Physical Exam: General- alert and awake, not in distress, speaks in sentences with no effort or accessory muscle use Eyes- anicteric Neck- no JVD Lungs- clear breath sounds bilaterally Heart- normal rate, regular rhythm; no murmurs Abdomen- normal bowel sounds, nondistended, soft, nontender Extremities-grade 1-2 lower ext edema R foot: dressing in place. LLE BKA noted. Neuro- no gross focal neurologic deficits Skin- warm & dry Results & Data Results & Data Vital Signs (Past 12 Hours) Vital Signs Temp Pulse Pulse Resp BP Pulse Ox O2 Del Method 06/17/24 15:45 36.4 C L 58 L 18 115/70 95 Room Air 06/17/24 11:56 36.5 C 67 18 130/75 95 Room Air 06/17/24 10:40 68 06/17/24 09:15 36.5 C 78 18 100/65 94 Room Air 06/17/24 08:00 Room Air
[2024-06-18] MEDS: HYDROmorphone HCL 2 MG TAB PO STA (04:49)
[2024-06-18 12:03] LABS: INR 2.2 (0.9-1.1); Prothrombin Time 22.3 Seconds (9.0-12.0)
--- NOTE | 2024-06-18 14:41 | Hospitalist Progress Note ---
Date of Service June 18, 2024 Assessment & Plan (1) Atrial fibrillation with RVR: Plan: Atrial fibrillation with RVR: s/p diltiazem drip at arrival. c/w toprol xl 150 mg daily. Rate controlled for now. c/w Coumadin w/ pt/inr monitoring. Coumadin clinic on [place]. -continue aldactone, lisinopril, well tolerated Chronic systolic heart failure: noted on echo, EF slightly decreased to 30-35%. s/p iv diuresis, now on home dose of torsemide 20 mg bid and Aldactone 25 mg daily. continue. Pt want FR to be lifted hence no FR, c/w low Na diet. Ileus: -resolved Adult failure to thrive: -patient has had numerous hospitalizations in regards to failure to thrive at home -appears disheveled, found by EMS with pet at door, poor living conditions -high concern given psychiatric concerns and overall condition that patient will be unable to safely return home -previous attending discussed with case consultant, filled out APS requested forms in regards to disposition Cellulitis of left lower leg: Possible infected chronic right foot wound/ulcer right foot cellulitis, right lower extremity cellulitis Blood cultures negative Wound culture neg Completed 7 days of cefepime and meropenem Seen by Podiatry 06/03/2024; right lower extremity nonsalvageable, recommend discussion regarding amputation, patient not ready at this point, prefers to discuss with his usual outpatient ice cream freezer assistant Dr. Mckenzie Seen by ID on 06/03/2024- didn't recommend prolong course of antiboitics. continue torsemide and Spironolactone for leg edema Other chronic medical conditions: Continue with/resume home meds as and when able. T2DM: Sliding scale insulin. PVD: Status post left BKA amputation. Continue with home aspirin and Lipitor. Morbid obesity: Likely contributed to PVD and recurrent cellulitis. Counseling done. CKD: CKD stage III, stable. NINA on CPAP: Continue CPAP at bedtime. Cardiac defibrillator in situ: Noted Major depression disorder: Continue with duloxetine Lymphedema: Likely contributing to cellulitis. Follow-up with lymphedema clinic as an outpatient. Chronic pain syndrome: Checked PDMP, continue on home oxycodone. Dilaudid added for breakthrough pain. C/w duloxetine and pregabalin. DVT px: Coumadin Disposition: pending. case consultant working to transition patient to SNF Admission and Anticipated Discharge Date Admission Date: May 24, 2024 Subjective Patient seen and examined at bedside. No new complaints. Pt upset that he has dietary restriction. Pt doesn't want fluid and diet restriction, it has been lifted. No significant overnight events Physical Exam Physical Exam: General- alert and awake, not in distress, speaks in sentences with no effort or accessory muscle use Eyes- anicteric Neck- no JVD Lungs- clear breath sounds bilaterally Heart- normal rate, regular rhythm; no murmurs Abdomen- normal bowel sounds, nondistended, soft, nontender Extremities-grade 1-2 lower ext edema R foot: dressing in place. LLE BKA noted. Neuro- no gross focal neurologic deficits Skin- warm & dry Results & Data Results & Data Vital Signs (Past 12 Hours) Vital Signs Temp Pulse Resp BP Pulse Ox O2 Del Method 06/18/24 11:38 36.4 C L 56 L 16 103/61 95 Room Air 06/18/24 08:04 36.6 C 68 18 103/65 93 Room Air 06/18/24 04:00 36.7 C 64 18 131/72 93 Room Air
[2024-06-18] MEDS: LANTUS PER UNIT CHARGE SC SCH (20:21)
[2024-06-19 07:52] LABS: INR 2.2 (0.9-1.1); Prothrombin Time 22.3 Seconds (9.0-12.0)
[2024-06-19] MEDS: FUROSEMIDE INJ 20 MG/2 ML VIAL IV ONE (12:30)
--- NOTE | 2024-06-19 14:17 | Hospitalist Progress Note ---
Date of Service June 19, 2024 Assessment & Plan (1) Atrial fibrillation with RVR: Plan: Atrial fibrillation with RVR: s/p diltiazem drip at arrival. c/w toprol xl 150 mg daily. Rate controlled for now. c/w Coumadin w/ pt/inr monitoring. Coumadin clinic on [place]. -continue aldactone, lisinopril, well tolerated Chronic systolic heart failure: noted on echo, EF slightly decreased to 30-35%. s/p iv diuresis, now on home dose of torsemide 20 mg bid and Aldactone 25 mg daily. continue. Pt want FR to be lifted hence no FR, c/w low Na diet. Ileus: -resolved Adult failure to thrive: -patient has had numerous hospitalizations in regards to failure to thrive at home -appears disheveled, found by EMS with pet at door, poor living conditions -high concern given psychiatric concerns and overall condition that patient will be unable to safely return home -previous attending discussed with casey saw operator, filled out APS requested forms in regards to disposition Cellulitis of left lower leg: Possible infected chronic right foot wound/ulcer right foot cellulitis, right lower extremity cellulitis Blood cultures negative Wound culture neg Completed 7 days of cefepime and meropenem Seen by Podiatry 06/03/2024; right lower extremity nonsalvageable, recommend discussion regarding amputation, patient not ready at this point, prefers to discuss with his usual outpatient hospital administrative assistant Dr. Mckenzie Seen by ID on 06/03/2024- didn't recommend prolong course of antiboitics. continue torsemide and Spironolactone for leg edema additional dose of diuresis today. Other chronic medical conditions: Continue with/resume home meds as and when able. T2DM: Sliding scale insulin. PVD: Status post left BKA amputation. Continue with home aspirin and Lipitor. Morbid obesity: Likely contributed to PVD and recurrent cellulitis. Counseling done. CKD: CKD stage III, stable. NINA on CPAP: Continue CPAP at bedtime. Cardiac defibrillator in situ: Noted Major depression disorder: Continue with duloxetine Lymphedema: Likely contributing to cellulitis. Follow-up with lymphedema cl inic as an outpatient. Chronic pain syndrome: Checked PDMP, continue on home oxycodone. Dilaudid added for breakthrough pain. C/w duloxetine and pregabalin. DVT px: Coumadin Disposition: pending. casey saw operator working to transition patient to SNF Admission and Anticipated Discharge Date Admission Date: May 24, 2024 Subjective Patient seen and examined at bedside. No new complaints. Patient's leg swelling is gradually increasing, patient advised on complying with fluid restriction and dietary restriction, patient is not interested in fluid and dietary restriction even if it means increasing swelling of lower extremity and increasing chance of wound/infection. Will give him additional dose of Lasix today. No significant overnight events Physical Exam Physical Exam: General- alert and awake, not in distress, speaks in sentences with no effort or accessory muscle use Eyes- anicteric Neck- no JVD Lungs- clear breath sounds bilaterally Heart- normal rate, regular rhythm; no murmurs Abdomen- normal bowel sounds, nondistended, soft, nontender Extremities-grade 2-3 lower ext edema R foot: superficial wounds, no s/s infection. LLE BKA noted. Neuro- no gross focal neurologic deficits Skin- warm & dry Results & Data Results & Data Vital Signs (Past 12 Hours) Vital Signs Temp Pulse Pulse Resp BP Pulse Ox O2 Del Method 06/19/24 13:30 36.7 C 58 L 18 121/71 95 Room Air 06/19/24 13:01 68 06/19/24 07:50 36.6 C 75 20 124/77 93 Room Air 06/19/24 04:00 36.5 C 78 18 120/73 94 Room Air
--- NOTE | 2024-06-19 14:35 | Pharmacy Report ---
Pharmacy Glycemic Short Note 2 - Date of Service June 19, 2024 - Glycemic Short BSG Results (Last 24 hours): 06/18/24 06/18/24 06/19/24 16:52 20:15 08:09 POC Glucose 121 H 126 H 149 H 06/19/24 12:23 POC Glucose 118 H OUTPATIENT ANTIDIABETIC REGIMEN: * Novolog pump * pre-meal target range: 90-150 mg/dL * post-meal target range: <220 mg/dL * Carb ratio: 1:3 g/unit * Correction factor: 1:30 unit/mg/dL * Basal rate: 7 units/hr (3264-1120), 6 units/hr (9018-5102), 7 units/hr (3156-3059) - 155 units/day HbA1c: 7.5% (02/09/24), 8.1% (04/2024 per H&P) ASSESSMENT: 06/19: * Lantus increased to 8 units daily on 06/18 per majority of fasting BSGs over past several days were > 140 mg/dL. * Tightened carb ratio for persistent post prandial elevation on 06/17. Post prandials now trending down. May need to resume 7 tomorrow. 06/17 * Patient received total of 26 units of insulin yesterday, of which 7 units were basal insulin * Fasting BSG 145 mg/dL - will continue same basal for now * No change to CF/CR today 06/13 * Patient received total of 33 units of insulin yesterday, of which 5 units were basal insulin * Fasting BSG 137 mg/dL - continue same * BSGs trending up last evening with dinner, however repeat checks taken to correlate result, ~211 mg/dL (unclear if initial check of 396 mg/dL was something on patient's finger). Similar instance this morning, however repeat checks confirm value of 137 mg/dL * No changes to CF/CR for now 06/10 * Patient has been well maintained on current insulin regimen. He received a total of 22 units of insulin yesterday (5 units were basal and 17 units were basal) * BSGs were mostly just slightly above goal range yesterday ([phone]/dL--upper end of goal range is 150). Fasting BSG was 158mg/dL this morning. No change to basal or bolus insulin at this time. 2/10 * Patient received a total of 51 units of insulin yesterday (5 were basal and 46 were bolus) * BSGs were above goal range most of yesterday ([phone]/dL) and then dropped to 81mg/dL at HS. * Fasting BSG was 108mg/dL this morning. The lower BSG last evening and into this morning is likely due to over correction at dinner time yesterday. CR was loosened starting with breakfast today. Will continue with Lantus 5 units q AM and Lantus scale (0, 5, 10 units) at bedtime. 06/03: * Patient received total of 16 units of insulin yesterday, low dose basal insu paula resumed * Fasting BSG 142 mg/dL, continue scale for basal for now - may need to titrate up once diet improves more * no change to CF/CR 06/01: * Patient did not receive any insulin yesterday, no carbs documented * Fasting BSG 114 mg/dL - held AM basal * Lunch BSG trending up to 205 mg/dL, despite no PO intake at breakfast - will add conservative basal dose for HS in case BSGs trend upward. It has been a few days since any basal insulin given so may start to see increase in blood sugars 05/30: * Ben received no insulin yesterday * Fasting BSG this AM within goal range, continue to hold basal until PO appetite improves. * Unable to assess NovoLog since patient has not been eating due to nausea/abdominal cramping. 05/29: * Received 25 units of basal yesterday and 14 more units of bolus. BSGs were [phone] mg/dL. * Patient continues to not eat today per RN. BSGs 108 and 104 mg/dL. Will hold basal until patient eating again. Considered low dose basal just so some is on board but RN concerned given hypoglycemia yesterday. * No changes to Novolog. 05/28: * Received 60 units of insulin yesterday, 50 of which were basal. BSGs were [phone] mg/dL. * Fasting BSG down to 90 mg/dL this AM. Reduced basal. * Lunchtime hypoglycemia at 52 mg/dL today. Required 45 g of carbs to bring BSG up to 76 mg/dL. Thankfully, patient was asymptomatic during this event. Unsure of reasoning for hypoglycemia but suspect basal overload combined with tight carb ratio. Will loosen carb ratio and hold lunch Novolog. Holding PM basal dose and will reassess tomorrow morning. 05/27: * BSGs have been fairly stable for the past 48 hours. * Pt refused his morning insulin yesterday, so BSGs have been trending up today, but still reasonable. * Pt has requested a regular diet rather than a diabetic diet. * Slight adjustment made to Lantus dosing this morning in an attempt to avoid hypoglycemia and discourage pt refusal of doses. * Pharmacy will continue to follow and adjust regimen as indicated. 05/24: * CG is a 58 year old male who presents to ED s/p mechanical fall out of wheelchair * Patient is well-known to pharmacy glycemic service s/p multiple admissions/consultations * Reasonably well-controlled T2DM as an outpatient with Novolog insulin pump (fairly large daily insulin doses) * Insulin pump removed prior to admission * Will utilize pump settings and prior inpatient glycemic data to guide initial SC insulin dosing PLAN FOR INPATIENT GLYCEMIC CONTROL: * Hold insulin pump * Basal insulin * Lantus 8 units qhs * Bolus insulin * NovoLog per scale ACHS or Q6hrs while NPO * Goal Range: Low 110 mg/dL - High 150 mg/dL * Correction Factor: 30 mg/dL/unit * Nutritional / Prandial insulin per carb ratio of 1 unit per 6 grams CHO consumed
[2024-06-19] MEDS: HYDROmorphone HCL 2 MG TAB PO STA (23:07)
[2024-06-20 06:56] LABS: BUN Creatinine Ratio 18.8 (10-20); Calcium 8.8 mg/dl (8.6-10.3); Creatinine Clr Calc Pharmacy 100.8 ml/min; Magnesium 1.5 mg/dl (1.7-2.4); Potassium 3.7 mmol/L (3.5-5.1)
[2024-06-20 07:09] LABS: Prothrombin Time 20.4 Seconds (9.0-12.0)
[2024-06-20] MEDS: MAGNESIUM SULFATE / D5W 1 GM/100 ML BAG IV SCH (11:22)
--- NOTE | 2024-06-20 16:06 | Hospitalist Progress Note ---
Date of Service June 20, 2024 Assessment & Plan (1) Atrial fibrillation with RVR: Plan: Atrial fibrillation with RVR: s/p diltiazem drip at arrival. c/w toprol xl 150 mg daily. Rate controlled for now. c/w Coumadin w/ pt/inr monitoring. Coumadin clinic on [place]. -continue aldactone, lisinopril, well tolerated Chronic systolic heart failure: noted on echo, EF slightly decreased to 30-35%. s/p iv diuresis, now on home dose of torsemide 20 mg bid and Aldactone 25 mg daily. continue. Pt want FR to be lifted hence no FR, c/w low Na diet. Ileus: -resolved Adult failure to thrive: -patient has had numerous hospitalizations in regards to failure to thrive at home -appears disheveled, found by EMS with pet at door, poor living conditions -high concern given psychiatric concerns and overall condition that patient will be unable to safely return home -previous attending discussed with machine adjuster leader case trim, filled out APS requested forms in regards to disposition Cellulitis of left lower leg: Possible infected chronic right foot wound/ulcer right foot cellulitis, right lower extremity cellulitis Blood cultures negative Wound culture neg Completed 7 days of cefepime and meropenem Seen by Podiatry 06/03/2024; right lower extremity nonsalvageable, recommend discussion regarding amputation, patient not ready at this point, prefers to discuss with his usual outpatient jelly maker Dr. Mckenzie Seen by ID on 06/03/2024- didn't recommend prolong course of antiboitics. continue torsemide and Spironolactone for leg edema Other chronic medical conditions: Continue with/resume home meds as and when able. T2DM: Sliding scale insulin. PVD: Status post left BKA amputation. Continue with home aspirin and Lipitor. Morbid obesity: Likely contributed to PVD and recurrent cellulitis. Counseling done. CKD: CKD stage III, stable. NINA on CPAP: Continue CPAP at bedtime. Cardiac defibrillator in situ: Noted Major depression disorder: Continue with duloxetine Lymphedema: Likely contributing to cellulitis. Follow-up with lymphedema clinic as an outpatient. Chronic pain syndrome: Checked PDMP, continue on home oxycodone. Dilaudid added for breakthrough pain. C/w duloxetine and pregabalin. DVT px: Coumadin Disposition: pending. machine adjuster leader case trim working to transition patient to SNF Admission and Anticipated Discharge Date Admission Date: May 24, 2024 Subjective Patient seen and examined at bedside. No new complaints. Pt doesn't want fluid or food restriction. No significant overnight events Physical Exam Physical Exam: General- alert and awake, not in distress, speaks in sentences with no effort or accessory muscle use Eyes- anicteric Neck- no JVD Lungs- clear breath sounds bilaterally Heart- normal rate, regular rhythm; no murmurs Abdomen- normal bowel sounds, nondistended, soft, nontender Extremities-grade 2-3 lower ext edema R foot: superficial wounds, no s/s infection. LLE BKA noted. Neuro- no gross focal neurologic deficits Skin- warm & dry Results & Data Results & Data Vital Signs (Past 12 Hours) Vital Signs Temp Pulse Pulse Resp BP Pulse Ox O2 Del Method 06/20/24 15:38 36.5 C 70 18 130/72 94 Room Air 06/20/24 14:16 67 06/20/24 11:17 36.5 C 64 20 128/68 93 Room Air 06/20/24 07:34 66 06/20/24 07:25 36.5 C 67 20 123/68 93 Room Air 06/20/24 04:46 36.5 C 66 18 113/66 94 Room Air
[2024-06-20] MEDS: diphenhydrAMINE 2%/ZINC 0.1% CREAM 28.4GM TUBE EXT PRN (20:41)
[2024-06-21 06:40] LABS: INR 1.9 (0.9-1.1); Prothrombin Time 19.5 Seconds (9.0-12.0)
--- NOTE | 2024-06-21 15:15 | Hospitalist Progress Note ---
Date of Service June 21, 2024 Assessment & Plan (1) Atrial fibrillation with RVR: Plan: Atrial fibrillation with RVR: s/p diltiazem drip at arrival. c/w toprol xl 150 mg daily. Rate controlled for now. c/w Coumadin w/ pt/inr monitoring. Coumadin clinic on [place]. -continue aldactone, lisinopril, well tolerated Chronic systolic heart failure: noted on echo, EF slightly decreased to 30-35%. s/p iv diuresis, now on home dose of torsemide 20 mg bid and Aldactone 25 mg daily. continue. Pt want FR to be lifted hence no FR, c/w low Na diet. Ileus: -resolved Adult failure to thrive: -patient has had numerous hospitalizations in regards to failure to thrive at home -appears disheveled, found by EMS with pet at door, poor living conditions -high concern given psychiatric concerns and overall condition that patient will be unable to safely return home -previous attending discussed with test case developer, filled out APS requested forms in regards to disposition Cellulitis of left lower leg: Possible infected chronic right foot wound/ulcer right foot cellulitis, right lower extremity cellulitis Blood cultures negative Wound culture neg Completed 7 days of cefepime and meropenem Seen by Podiatry 06/03/2024; right lower extremity nonsalvageable, recommend discussion regarding amputation, patient not ready at this point, prefers to discuss with his usual outpatient pre certification specialist Dr. Mckenzie Seen by ID on 06/03/2024- didn't recommend prolong course of antiboitics. continue torsemide and Spironolactone for leg edema Other chronic medical conditions: Continue with/resume home meds as and when able. T2DM: Sliding scale insulin. PVD: Status post left BKA amputation. Continue with home aspirin and Lipitor. Morbid obesity: Likely contributed to PVD and recurrent cellulitis. Counseling done. CKD: CKD stage III, stable. NINA on CPAP: Continue CPAP at bedtime. Cardiac defibrillator in situ: Noted Major depression disorder: Continue with duloxetine Lymphedema: Likely contributing to cellulitis. Follow-up with lymphedema clinic as an outpatient. Chronic pain syndrome: Checked PDMP, continue on home oxycodone. Dilaudid added for breakthrough pain. C/w duloxetine and pregabalin. DVT px: Coumadin Disposition: pending. test case developer working to transition patient to SNF Admission and Anticipated Discharge Date Admission Date: May 24, 2024 Subjective Patient seen and examined at bedside. No new complaints. Pt doesn't want fluid or food restriction. No significant overnight events Physical Exam Physical Exam: General- alert and awake, not in distress, speaks in sentences with no effort or accessory muscle use Eyes- anicteric Neck- no JVD Lungs- clear breath sounds bilaterally Heart- normal rate, regular rhythm; no murmurs Abdomen- normal bowel sounds, nondistended, soft, nontender Extremities-grade 2 lower ext edema R foot: superficial wounds, no s/s infection. LLE BKA noted. Neuro- no gross focal neurologic deficits Skin- warm & dry Results & Data Results & Data Vital Signs (Past 12 Hours) Vital Signs Temp Pulse Resp BP Pulse Ox O2 Del Method 06/21/24 11:00 36.5 C 68 18 109/69 94 Room Air 06/21/24 07:56 36.5 C 67 18 109/71 93 Room Air
[2024-06-21] MEDS: HYDROmorphone HCL 2 MG TAB PO STA (21:33)
[2024-06-22] MEDS: HYDROmorphone HCL 2 MG TAB PO PRN (05:28)
--- NOTE | 2024-06-22 15:59 | Hospitalist Progress Note ---
Date of Service June 22, 2024 Assessment & Plan (1) Atrial fibrillation with RVR: Plan: Mr. 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 Patient's course prolonged given APS involvement and placement issues. Case management following. Patient was compliant with medications; however, as of 06/21, patient has started to refuse medications as he is frustrated he cannot go back home immediately. Encouraged and counseled patient that if he does not take his meds he will further prevent discharge and opportunity to display ability to care for self. Patient refused to actively participate in exam and acknowledged that his refusal will prolong his hospitalization #Atrial fibrillation with RVR: s/p diltiazem drip at arrival. c/w toprol xl 150 mg daily. Rate controlled for now. c/w Coumadin w/ pt/inr monitoring. Coumadin clinic on [place]. Concern that patient's rates will increase given refusal to take medications Continue to monitor on tele #Acute on Chronic heart failure with reduced EF noted on echo, EF slightly decreased to 30-35%. s/p iv diuresis, now on home dose of torsemide 20 mg bid and Aldactone 25 mg daily. continue. Patient aggressive about FR hence no FR, c/w low Na diet. -continue aldactone, lisinopril Patient refusing--will likely have to utilize IV management if patient delcines #Ileus: -resolved #Adult failure to thrive: -patient has had numerous hospitalizations in regards to failure to thrive at home -appears disheveled, found by EMS with pet at door, poor living conditions -high concern given psychiatric concerns and overall condition that patient will be unable to safely return home -previous attending discussed with bottle caser, filled out APS requested forms in regards to disposition Patient cannot be discharged without arrangements confirmed via APS consult to Psychiatry once more given behavioral issues and willful refusal of medications; question if anything can be utilized at this time given involuntary confinement with APS #Cellulitis of left lower leg: Possible infected chronic right foot wound/ulcer right foot cellulitis, right lower extremity cellulitis Blood cultures negative Wound culture neg Completed 7 days of cefepime and meropenem Seen by Podiatry 06/03/2024; right lower extremity nonsalvageable, recommend discussion regarding amputation, patient not ready at this point, prefers to discuss with his usual outpatient certified fraud examiner Dr. Mckenzie Seen by ID on 06/03/2024- didn't recommend prolong course of antiboitics. continue torsemide and Spironolactone for leg edema Other chronic medical conditions: Continue with/resume home meds as and when able. T2DM: Sliding scale insulin. PVD: Status post left BKA amputation. Continue with home aspirin and Lipitor. Morbid obesity: Likely contributed to PVD and recurrent cellulitis. Counseling done. CKD: CKD stage III, stable. NINA on CPAP: Continue CPAP at bedtime. Cardiac defibrillator in situ: Noted Major depression disorder: Continue with duloxetine Lymphedema: Likely contributing to cellulitis. Follow-up with lymphedema clinic as an outpatient. Chronic pain syndrome: Checked PDMP, continue on home oxycodone. Dilaudid added for breakthrough pain. C/w duloxetine and pregabalin. DVT px: Coumadin Disposition: pending. bottle caser working to transition patient to SNF; however, course complicated due to med refusal Admission and Anticipated Discharge Date Admission Date: May 24, 2024 Subjective patient slumped in bed with eyes closed. Responds to questions but limited 2/2 patient refusal to participate patient states he wants to go home, when explained that refusal of taking meds will actually prolong his time in the hospital, he acknowledged and states he doesnt care Physical Exam Constitutional: willfully closing eyes, purposeful disengagement with exam--when responding coherent and alert and oriented Respiratory: no noted respiratory distress Cardiovascular: telemetry reviewed, a fib on monitor Results & Data Results & Data Vital Signs (Past 12 Hours) Vital Signs Temp Pulse Pulse Resp BP Pulse Ox O2 Del Method 06/22/24 15:33 36.4 C L 69 16 126/77 93 Room Air 06/22/24 13:00 63 06/22/24 10:37 Room Air 06/22/24 08:12 36.6 C 68 17 113/67 92 Room Air 06/22/24 04:26 36.7 C 73 20 144/70 H 92 Room Air Laboratory Results declined labs Medications Administered Home Medications Medication Instructions Recorded Confirmed Last Taken Lantus Solostar U-100 Insulin 40 units SC BID 02/08/24 02/09/24 Unknown acetaminophen 325 mg tablet 650 mg PO QID PRN Pain 02/08/24 05/24/24 Unknown (Tylenol) aspirin 81 mg tablet,delayed 81 mg PO DAILY 02/08/24 05/24/24 05/22/24 release atorvastatin 80 mg tablet 80 mg PO DAILY 02/08/24 05/24/24 05/22/24 ergocalciferol (vitamin D2) 50,000 50,000 unit PO WK 02/08/24 05/24/24 05/17/24 unit tablet ferrous sulfate 325 mg (65 mg 325 mg PO BID 02/08/24 05/24/24 05/22/24 iron) tablet hyoscyamine sulfate 0.125 mg tablet 0.125 mg PO Q4H PRN Abdominal Pain 02/08/24 05/24/24 05/22/24 insulin aspart U-100 100 unit/mL 10 unit subcut AC 02/08/24 02/09/24 Unknown subcutaneous solution (Novolog U-100 Insulin aspart) levothyroxine 88 mcg tablet 88 mcg PO DAILY 02/08/24 05/24/24 05/22/24 metoprolol tartrate 50 mg tablet 50 mg PO BID 02/08/24 05/24/24 05/22/24 multivitamin,th-xmrj-Bk-FA-min 1 tab PO DAILY 02/08/24 02/09/24 Unknown nystatin 1 applic EXT UD 02/08/24 05/24/24 05/22/24 omeprazole 20 mg capsule,delayed 20 mg PO DAILY 02/08/24 05/24/24 05/22/24 release oxycodone 10 mg tablet 10 mg PO Q4H PRN Pain, Severe 02/08/24 05/24/24 05/22/24 potassium chloride 20 mEq 20 meq PO BID 02/08/24 05/24/24 05/22/24 tablet,extended release(part/cryst) pregabalin 50 mg capsule 50 mg PO BID 02/08/24 05/24/24 05/22/24 sitagliptin phosphate 50 mg tablet 50 mg PO DAILY 02/08/24 05/24/24 05/22/24 (Claire) spironolactone 25 mg tablet 25 mg PO DAILY 02/09/24 05/24/24 05/22/24 triamcinolone acetonide 0.1 % 1 applic topical TID 02/09/24 05/24/24 Unknown lotion warfarin 3 mg tablet 3 mg PO DAILY 02/09/24 05/24/24 05/22/24 ammonium lactate 12 % lotion 1 applic topical DAILY 05/24/24 05/24/24 05/22/24 betamethasone dipropionate 0.05 % 1 applic topical BID 05/24/24 05/24/24 Unknown topical cream loratadine 10 mg tablet 10 mg PO DAILY 05/24/24 05/24/24 05/22/24 torsemide 20 mg tablet 20 mg PO BID 05/24/24 05/24/24 05/22/24 Active Medications Generic Name Dose Route Start Last Admin Trade Name Freq PRN Reason Stop Dose Admin Acetaminophen 500 mg 05/24/24 00:57 06/22/24 15:59 Acetaminophen 500 Mg Tab PO 06/23/24 00:56 500 mg Q6H PRN Administration fever/pain Aspirin 81 mg 05/24/24 09:00 06/22/24 08:28 Aspirin 81 Mg Ectab PO 06/23/24 08:59 Not Given DAILY MATT Betamethasone Valerate 1 appln 05/24/24 09:00 06/22/24 12:59 Betamethasone Maryann 0.1% Cr 15 Gm TOP 06/23/24 08:59 Not Given TID MATT Duloxetine HCl 60 mg 05/28/24 09:00 06/22/24 08:28 Duloxetine Hcl 60 Mg Cap PO 06/27/24 08:59 Not Given QAM MATT Famotidine 10 mg 05/25/24 11:55 06/21/24 21:33 Famotidine 10 Mg Tablet PO 06/24/24 20:59 10 mg BID PRN Administration gerd Hydromorphone HCl 2 mg 06/22/24 04:02 06/22/24 08:26 Hydromorphone Hcl 2 Mg Tab PO 07/06/24 04:01 2 mg QID PRN Administration Pain Insulin Aspart 0 units 05/24/24 07:30 06/22/24 12:21 Insulin Aspart Per Unit Charge SC 06/23/24 07:29 Not Given ACHS PENDING SALE TO [facility] Insulin Glargine 8 units 06/18/24 21:00 06/21/24 20:36 Lantus Per Unit Charge SC 07/18/24 20:59 Not Given HS MATT Lactobacillus Acidophilus 1,250 mg 06/02/24 09:00 06/22/24 08:28 Advanced Probiotic 625 Mg Capsule PO 07/02/24 08:59 Not Given DAILY MATT Levothyroxine Sodium 88 mcg 05/24/24 06:30 06/22/24 05:30 Levothyroxine Sodium 88 Mcg Tablet PO 06/23/24 06:29 Not Given DAILYBB MATT Lisinopril 5 mg 05/28/24 09:00 06/22/24 08:28 Lisinopril 5 Mg Tab PO 06/27/24 08:59 Not Given QAM PENDING SALE TO [facility] Metoprolol Succinate 150 mg 05/26/24 09:00 06/22/24 08:28 Metoprolol Succ 50mg Ext Rel Tab PO 06/25/24 08:59 Not Given QAM PENDING SALE TO [facility] Miscellaneous 15 - 30 gm 05/24/24 03:30 05/28/24 11:52 Carbohydrates For Hypoglycemia PO 06/23/24 03:29 15 gm UD PRN Administration Hypoglycemia Treatment Nystatin 1 appln 05/24/24 01:00 06/22/24 08:28 Nystatin Powder 15gm Btl EXT 06/23/24 00:59 Not Given BID PENDING SALE TO [facility] Ondansetron HCl 4 mg 05/29/24 08:28 06/22/24 02:18 Ondansetron Inj 2 Mg/Ml 2 Ml Vial IV 06/28/24 08:27 4 mg Q6H PRN Administration Nausea And Vomiting Pantoprazole Sodium 40 mg 05/30/24 21:00 06/22/24 08:29 Pantoprazole 40 Mg Tab PO 06/29/24 20:59 Not Given BID MATT Polyethylene Glycol 17 gm 05/30/24 21:00 06/22/24 08:29 Polyethylene (Miralax) 17 Gm Pack PO 06/29/24 20:59 Not Given BID MATT Pregabalin 75 mg 05/29/24 21:00 06/22/24 12:59 Pregabalin 75 Mg Cap PO 06/28/24 20:59 Not Given TID MATT Senna/Docusate Sodium 2 tab 05/30/24 21:00 06/22/24 08:28 Docusate Sodium/Senna 50/8.6mg Tab PO 06/29/24 20:59 Not Given BID MATT Spironolactone 25 mg 05/28/24 09:00 06/22/24 08:29 Spironolactone 25 Mg Tab PO 06/27/24 08:59 Not Given DAILY MATT Sucralfate 1 gm 06/01/24 17:00 06/22/24 12:59 Sucralfate 1 Gm/10 Ml Udc PO 07/01/24 16:59 Not Given QID MATT Torsemide 20 mg 06/16/24 09:00 06/22/24 08:29 Torsemide 20 Mg Tab PO 07/16/24 08:59 Not Given BID17 PENDING SALE TO [facility] Warfarin Sodium 2 mg 06/07/24 16:00 06/21/24 16:41 Warfarin Sod 2 Mg Tab PO 07/07/24 15:59 Not Given DAILY@1600 PENDING SALE TO [facility] Zinc Acetate/Diphenhydramine 1 appln 05/24/24 03:17 06/22/24 16:00 Diphenhydramine 2%/Zinc 0.1% Cream 28.4gm Tube EXT 06/23/24 03:16 1 appln QID PRN Administration itchy skin
[2024-06-22 20:54] LABS: Hematocrit (blood only) 39.4 % (42.0-52.0); Hemoglobin 12.3 g/dl (14.0-18.0); Mean Corpuscular Hemoglobin 27.2 pg (25.0-34.0); Mean Corpuscular Hgb Conc 31.2 g/dL (32.0-36.0); Mean Platelet Volume 9.6 fL (9.4-12.4); Platelet Count 206 K/uL (130-400); RDW Coefficient of Variation 18.1 % (11.5-14.5); RDW Standard Deviation 57.6 fL (36.4-46.3); Red Blood Count 4.53 M/uL (4.70-6.10); White Blood Count 4.43 K/ul (4.8-10.8)
[2024-06-22 21:08] LABS: BUN Creatinine Ratio 21.1 (10-20); Calcium 8.9 mg/dl (8.6-10.3); Creatinine Clr Calc Pharmacy 107.2 ml/min; Potassium 3.8 mmol/L (3.5-5.1)
[2024-06-22 21:25] LABS: INR 1.8 (0.9-1.1); Prothrombin Time 18.5 Seconds (9.0-12.0)
[2024-06-23] MEDS: HYDROmorphone INJ 0.5 MG/0.5 ML SYR IV STA (04:21)
[2024-06-23] MEDS ORDERED: bisacodyL 10 MG SUPP PR PRN (08:18)
[2024-06-23 09:26] LABS: Hemoglobin 12.7 g/dl (14.0-18.0); Mean Corpuscular Hemoglobin 27.4 pg (25.0-34.0); Mean Corpuscular Hgb Conc 31.8 g/dL (32.0-36.0); Mean Corpuscular Volume 86.4 fL (80.0-100.0); Mean Platelet Volume 10.8 fL (9.4-12.4); Platelet Count 226 K/uL (130-400); RDW Coefficient of Variation 17.9 % (11.5-14.5); Red Blood Count 4.63 M/uL (4.70-6.10); White Blood Count 4.54 K/ul (4.8-10.8)
[2024-06-23 09:39] LABS: BUN Creatinine Ratio 21.1 (10-20); Calcium 8.9 mg/dl (8.6-10.3); Creatinine Clr Calc Pharmacy 123.3 ml/min; Potassium 3.9 mmol/L (3.5-5.1)
[2024-06-23 09:48] LABS: INR 1.7 (0.9-1.1); Prothrombin Time 17.6 Seconds (9.0-12.0)
--- NOTE | 2024-06-23 10:03 | Pharmacy Report ---
Pharmacy Glycemic Short Note 2 - Date of Service June 23, 2024 - Glycemic Short BSG Results (Last 24 hours): 06/22/24 06/22/24 06/22/24 12:44 17:14 17:16 Glucose POC Glucose 196 H 320 H* 286 H 06/22/24 06/22/24 06/23/24 20:20 20:40 08:13 Glucose 221 H POC Glucose 254 H 185 H 06/23/24 08:45 Glucose 200 H POC Glucose OUTPATIENT ANTIDIABETIC REGIMEN: * Novolog pump * pre-meal target range: 90-150 mg/dL * post-meal target range: <220 mg/dL * Carb ratio: 1:3 g/unit * Correction factor: 1:30 unit/mg/dL * Basal rate: 7 units/hr (4406-2079), 6 units/hr (2897-4127), 7 units/hr (7441-9787) - 155 units/day HbA1c: 7.5% (02/09/24), 8.1% (04/2024 per H&P) ASSESSMENT: 06/23: * After refusing insulin and BSG checks for ~24-36 hours, Mr. Mckeon did allow RN to give some insulin yesterday. Received 8 units basal + 16 units bolus. BSGs were 196-320-254 mg/dL. * Fasting BSG was 185 mg/dL this AM which is likely elevated secondary to basal deficiency from refusing insulin. Will not make any changes. * No changes to Novolog as patients BSGs were controlled when insulin was allowed to be given. PLAN FOR INPATIENT GLYCEMIC CONTROL: * Hold insulin pump * Basal insulin * Lantus 8 units SC HS * Bolus insulin * NovoLog per scale ACHS or Q6hrs while NPO * Goal Range: Low 120 mg/dL - High 150 mg/dL * Correction Factor: 30 mg/dL/unit * Nutritional / Prandial insulin per carb ratio of 1 unit per 6 grams CHO consumed
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
--- NOTE | 2024-06-23 16:12 | Hospitalist Progress Note ---
Date of Service June 23, 2024 Assessment & Plan (1) Atrial fibrillation with RVR: Plan: Mr. 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 Patient's course prolonged given APS involvement and placement issues. Case management following. Patient was compliant with medications; however, as of 06/21, patient has started to refuse medications as he is frustrated he cannot go back home immediately. Encouraged and counseled patient that if he does not take his meds he will further prevent discharge and opportunity to display ability to care for self. Patient refused to actively participate in exam and acknowledged that his refusal will prolong his hospitalization; however, after discussion 06/22 patient started to resume medications and encouragement offered. Concern raised about wounds from nursing. Will reconsult wound care at this time #Cellulitis of left lower leg: #Possible infected chronic right foot wound/ulcer right foot cellulitis, right lower extremity cellulitis Blood cultures negative Wound culture neg Completed 7 days of cefepime and meropenem Seen by Podiatry 06/03/2024; right lower extremity nonsalvageable, recommend discussion regarding amputation, patient not ready at this point, prefers to discuss with his usual outpatient facilities mechanical design engineer Dr. Mckenzie Seen by ID on 06/03/2024- didn't recommend prolong course of antibiotics. continue torsemide and Spironolactone for leg edema consulted wound care for photos and eval of wounds #Atrial fibrillation with RVR: s/p diltiazem drip at arrival. c/w toprol xl 150 mg daily. Rate controlled for now. c/w Coumadin w/ pt/inr monitoring. Coumadin clinic on DC. Concern that patient's rates will increase given refusal to take medications Continue to monitor on tele #Acute on Chronic heart failure with reduced EF noted on echo, EF slightly decreased to 30-35%. s/p iv diuresis, now on home dose of torsemide 20 mg bid and Aldactone 25 mg daily. continue. Patient aggressive about FR hence no FR, c/w low Na diet. -continue Aldactone, lisinopril resumed taking all home medications #Ileus: -resolved #Adult failure to thrive: -patient has had numerous hospitalizations in regards to failure to thrive at home -appears disheveled, found by EMS with pet at door, poor living conditions -high concern given psychiatric concerns and overall condition that patient will be unable to safely return home -previous attending discussed with human services case manager, filled out APS requested forms in regards to disposition Patient cannot be discharged without arrangements confirmed via APS Other chronic medical conditions: Continue with/resume home meds as and when able. T2DM: Sliding scale insulin. PVD: Status post left BKA amputation. Continue with home aspirin and Lipitor. Morbid obesity: Likely contributed to PVD and recurrent cellulitis. Counseling done. CKD: CKD stage III, stable. NINA on CPAP: Continue CPAP at bedtime. Cardiac defibrillator in situ: Noted Major depression disorder: Continue with duloxetine Lymphedema: Likely contributing to cellulitis. Follow-up with lymphedema clinic as an outpatient. Chronic pain syndrome: Checked PDMP, continue on home oxycodone. Dilaudid added for breakthrough pain. C/w duloxetine and pregabalin. DVT px: Coumadin Disposition: pending. human services case manager working to transition patient to SNF; however, course complicated due to med refusal Admission and Anticipated Discharge Date Admission Date: May 24, 2024 Subjective Evaluated at bedside, tried to engage and encourage patient about taking his medications Opens eyes, but declines further engagement; however, states "thank you" when encouragement offered denies any symptoms and declined further discussion Physical Exam Constitutional: resting in bed Respiratory: no distress noted Cardiovascular: a fib on tele Results & Data Results & Data Vital Signs (Past 12 Hours) Vital Signs Temp Pulse Pulse Resp BP BP Pulse Ox 06/23/24 16:02 36.5 C 61 18 113/72 94 06/23/24 15:16 69 06/23/24 11:34 36.5 C 63 18 103/68 91 06/23/24 11:21 06/23/24 08:03 36.7 C 74 18 122/78 91 06/23/24 07:30 73 06/23/24 04:18 119/66 O2 Del Method 06/23/24 16:02 Room Air 06/23/24 15:16 06/23/24 11:34 Room Air 06/23/24 11:21 Room Air 06/23/24 08:03 Room Air 06/23/24 07:30 06/23/24 04:18 Laboratory Results Short CBC 06/22/24 06/23/24 Range/Units 20:40 08:45 WBC 4.43 L 4.54 L (4.8-10.8) K/ul Hgb 12.3 L 12.7 L (14.0-18.0) g/dl Hct 39.4 L 40.0 L (42.0-52.0) % Plt Count 206 226 (130-400) K/uL BMP 06/22/24 06/23/24 20:40 08:45 Sodium 136 138 Potassium 3.8 3.9 Chloride 100 100 Carbon Dioxide 31 31 BUN 23 20 Creatinine 1.09 0.95 Glucose 221 H 200 H Calcium 8.9 8.9 Medications Administered Home Medications Medication Instructions Recorded Confirmed Last Taken Lantus Solostar U-100 Insulin 40 units SC BID 02/08/24 02/09/24 Unknown acetaminophen 325 mg tablet 650 mg PO QID PRN Pain 02/08/24 05/24/24 Unknown (Tylenol) aspirin 81 mg tablet,delayed 81 mg PO DAILY 02/08/24 05/24/24 05/22/24 release atorvastatin 80 mg tablet 80 mg PO DAILY 02/08/24 05/24/24 05/22/24 ergocalciferol (vitamin D2) 50,000 50,000 unit PO WK 02/08/24 05/24/24 05/17/24 unit tablet ferrous sulfate 325 mg (65 mg 325 mg PO BID 02/08/24 05/24/24 05/22/24 iron) tablet hyoscyamine sulfate 0.125 mg tablet 0.125 mg PO Q4H PRN Abdominal Pain 02/08/24 05/24/24 05/22/24 insulin aspart U-100 100 unit/mL 10 unit subcut AC 02/08/24 02/09/24 Unknown subcutaneous solution (Novolog U-100 Insulin aspart) levothyroxine 88 mcg tablet 88 mcg PO DAILY 02/08/24 05/24/24 05/22/24 metoprolol tartrate 50 mg tablet 50 mg PO BID 02/08/24 05/24/24 05/22/24 multivitamin,sb-biyt-Mn-FA-min 1 tab PO DAILY 02/08/24 02/09/24 Unknown nystatin 1 applic EXT UD 02/08/24 05/24/24 05/22/24 omeprazole 20 mg capsule,delayed 20 mg PO DAILY 02/08/24 05/24/24 05/22/24 release oxycodone 10 mg tablet 10 mg PO Q4H PRN Pain, Severe 02/08/24 05/24/24 05/22/24 potassium chloride 20 mEq 20 meq PO BID 02/08/24 05/24/24 05/22/24 tablet,extended release(part/cryst) pregabalin 50 mg capsule 50 mg PO BID 02/08/24 05/24/24 05/22/24 sitagliptin phosphate 50 mg tablet 50 mg PO DAILY 02/08/24 05/24/24 05/22/24 (Januvia) spironolactone 25 mg tablet 25 mg PO DAILY 02/09/24 05/24/24 05/22/24 triamcinolone acetonide 0.1 % 1 applic topical TID 02/09/24 05/24/24 Unknown lotion warfarin 3 mg tablet 3 mg PO DAILY 02/09/24 05/24/24 05/22/24 ammonium lactate 12 % lotion 1 applic topical DAILY 05/24/24 05/24/24 05/22/24 betamethasone dipropionate 0.05 % 1 applic topical BID 05/24/24 05/24/24 Unknown topical cream loratadine 10 mg tablet 10 mg PO DAILY 05/24/24 05/24/24 05/22/24 torsemide 20 mg tablet 20 mg PO BID 05/24/24 05/24/24 05/22/24 Active Medications Generic Name Dose Route Start Last Admin Trade Name Freq PRN Reason Stop Dose Admin Acetaminophen 500 mg 05/24/24 00:57 06/23/24 08:50 Acetaminophen 500 Mg Tab PO 07/23/24 00:56 500 mg Q6H PRN Administration fever/pain Aspirin 81 mg 05/24/24 09:00 06/23/24 08:50 Aspirin 81 Mg Ectab PO 07/23/24 08:59 81 mg DAILY MATT Administration Betamethasone Valerate 1 appln 05/24/24 09:00 06/23/24 13:05 Betamethasone Maryann 0.1% Cr 15 Gm TOP 07/23/24 08:59 1 appln TID MATT Administration Duloxetine HCl 60 mg 05/28/24 09:00 06/23/24 08:52 Duloxetine Hcl 60 Mg Cap PO 07/23/24 08:59 60 mg QAM MATT Administration Famotidine 10 mg 05/25/24 11:55 06/21/24 21:33 Famotidine 10 Mg Tablet PO 07/23/24 11:54 10 mg BID PRN Administration gerd Insulin Aspart 0 units 05/24/24 07:30 06/23/24 13:04 Insulin Aspart Per Unit Charge SC 07/23/24 07:29 17 units ACHS MATT Administration Insulin Glargine 8 units 06/18/24 21:00 06/22/24 21:47 Lantus Per Unit Charge SC 07/18/24 20:59 8 units HS MATT Administration Lactobacillus Acidophilus 1,250 mg 06/02/24 09:00 06/23/24 08:54 Advanced Probiotic 625 Mg Capsule PO 07/23/24 08:59 1,250 mg DAILY MATT Administration Levothyroxine Sodium 88 mcg 05/24/24 06:30 06/23/24 08:53 Levothyroxine Sodium 88 Mcg Tablet PO 07/23/24 06:29 88 mcg DAILYBB MATT Administration Lisinopril 5 mg 05/28/24 09:00 06/23/24 08:51 Lisinopril 5 Mg Tab PO 07/23/24 08:59 5 mg QAM MATT Administration Metoprolol Succinate 150 mg 05/26/24 09:00 06/23/24 08:51 Metoprolol Succ 50mg Ext Rel Tab PO 07/23/24 08:59 150 mg QAM MATT Administration Miscellaneous 15 - 30 gm 05/24/24 03:30 05/28/24 11:52 Carbohydrates For Hypoglycemia PO 07/23/24 03:29 15 gm UD PRN Administration Hypoglycemia Treatment Nystatin 1 appln 05/24/24 01:00 06/23/24 08:52 Nystatin Powder 15gm Btl EXT 07/23/24 00:59 1 appln BID MATT Administration Ondansetron HCl 4 mg 05/29/24 08:28 06/23/24 09:59 Ondansetron Inj 2 Mg/Ml 2 Ml Vial IV 07/23/24 08:27 4 mg Q6H PRN Administration Nausea And Vomiting Pantoprazole Sodium 40 mg 05/30/24 21:00 06/23/24 08:51 Pantoprazole 40 Mg Tab PO 07/23/24 20:59 40 mg BID MATT Administration Polyethylene Glycol 17 gm 05/30/24 21:00 06/23/24 08:54 Polyethylene (Miralax) 17 Gm Pack PO 07/23/24 20:59 Not Given BID MATT Pregabalin 75 mg 05/29/24 21:00 06/23/24 13:09 Pregabalin 75 Mg Cap PO 07/23/24 20:59 75 mg TID MATT Administration Senna/Docusate Sodium 2 tab 05/30/24 21:00 06/23/24 08:54 Docusate Sodium/Senna 50/8.6mg Tab PO 07/23/24 20:59 Not Given BID MATT Spironolactone 25 mg 05/28/24 09:00 06/23/24 08:50 Spironolactone 25 Mg Tab PO 07/23/24 08:59 25 mg DAILY MATT Administration Sucralfate 1 gm 06/01/24 17:00 06/23/24 13:05 Sucralfate 1 Gm/10 Ml Udc PO 07/23/24 16:59 1 gm QID MATT Administration Torsemide 20 mg 06/16/24 09:00 06/23/24 08:51 Torsemide 20 Mg Tab PO 07/16/24 08:59 20 mg BID17 MATT Administration Warfarin Sodium 2 mg 06/07/24 16:00 06/22/24 17:23 Warfarin Sod 2 Mg Tab PO 07/07/24 15:59 2 mg DAILY@1600 MATT Administration Zinc Acetate/Diphenhydramine 1 appln 05/24/24 03:17 06/22/24 16:00 Diphenhydramine 2%/Zinc 0.1% Cream 28.4gm Tube EXT 07/23/24 03:16 1 appln QID PRN Administration itchy skin
[2024-06-23] MEDS: HYDROmorphone HCL 2 MG TAB PO PRN (16:46)
[2024-06-23] MEDS: WARFARIN SOD 3 MG TAB PO STA (17:55)
[2024-06-24 07:24] LABS: Hematocrit (blood only) 38.5 % (42.0-52.0); Hemoglobin 12.2 g/dl (14.0-18.0); Mean Corpuscular Hemoglobin 27.2 pg (25.0-34.0); Mean Corpuscular Hgb Conc 31.7 g/dL (32.0-36.0); Mean Corpuscular Volume 85.9 fL (80.0-100.0); Mean Platelet Volume 9.3 fL (9.4-12.4); Platelet Count 233 K/uL (130-400); RDW Coefficient of Variation 17.7 % (11.5-14.5); RDW Standard Deviation 55.9 fL (36.4-46.3); Red Blood Count 4.48 M/uL (4.70-6.10); White Blood Count 4.58 K/ul (4.8-10.8)
[2024-06-24 07:47] LABS: BUN Creatinine Ratio 17.6 (10-20); Calcium 8.8 mg/dl (8.6-10.3); Creatinine Clr Calc Pharmacy 108.2 ml/min; Magnesium 1.6 mg/dl (1.7-2.4); Phosphorus 3.4 mg/dl (2.5-4.9); Potassium 3.6 mmol/L (3.5-5.1)
[2024-06-24 07:59] LABS: INR 1.7 (0.9-1.1); Prothrombin Time 17.5 Seconds (9.0-12.0)
[2024-06-24] MEDS: MAGNESIUM SULFATE / D5W 1 GM/100 ML BAG IV SCH (09:27)
--- NOTE | 2024-06-24 10:06 | Pharmacy Report ---
Pharmacy Glycemic Short Note 2 - Date of Service June 24, 2024 - Glycemic Short BSG Results (Last 24 hours): 06/23/24 06/23/24 06/23/24 12:18 17:14 20:14 Glucose POC Glucose 175 H 127 H 169 H 06/24/24 06/24/24 06:54 08:32 Glucose 215 H POC Glucose 207 H OUTPATIENT ANTIDIABETIC REGIMEN: * Novolog pump * pre-meal target range: 90-150 mg/dL * post-meal target range: <220 mg/dL * Carb ratio: 1:3 g/unit * Correction factor: 1:30 unit/mg/dL * Basal rate: 7 units/hr (2765-1702), 6 units/hr (9193-7552), 7 units/hr (5113-0888) - 155 units/day HbA1c: 7.5% (02/09/24), 8.1% (04/2024 per H&P) ASSESSMENT: 06/24: * Ben received 44 units of insulin yesterday, only 8 of which were basal. BSGs were: 355-875-085-169 mg/dL. * Fasting BSG this AM continues to trend up, 207 mg/dL. Still believe we are seeing the effects of patient refusing basal a few days ago as he was relatively stable on 8 units of basal at bedtime. However, will opt to slightly increase basal this evening, even if only for a one time dose. Reassess tomorrow. * No changes in Novolog parameters. Eating better. 06/23: * After refusing insulin and BSG checks for ~24-36 hours, Mr. Mckeon did allow RN to give some insulin yesterday. Received 8 units basal + 16 units bolus. BSGs were 196-320-254 mg/dL. * Fasting BSG was 185 mg/dL this AM which is likely elevated secondary to basal deficiency from refusing insulin. Will not make any changes. * No changes to Novolog as patients BSGs were controlled when insulin was allowed to be given. PLAN FOR INPATIENT GLYCEMIC CONTROL: * Hold insulin pump * Basal insulin * Lantus 10 units SC HS * Bolus insulin * NovoLog per scale ACHS or Q6hrs while NPO * Goal Range: Low 120 mg/dL - High 150 mg/dL * Correction Factor: 30 mg/dL/unit * Nutritional / Prandial insulin per carb ratio of 1 unit per 6 grams CHO consumed
[2024-06-24] MEDS: DICYCLOMINE HCL 10 MG CAP PO SCH (10:37)
[2024-06-24] MEDS: WARFARIN SOD 3 MG TAB PO SCH (16:58)
--- NOTE | 2024-06-24 17:15 | Hospitalist Progress Note ---
Date of Service June 24, 2024 Assessment & Plan (1) Atrial fibrillation with RVR: Plan: Mr. 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 Patient's course prolonged given APS involvement and placement issues. Case management following. Patient was compliant with medications; however, as of 06/21, patient has started to refuse medications as he is frustrated he cannot go back home immediately. Encouraged and counseled patient that if he does not take his meds he will further prevent discharge and opportunity to display ability to care for self. Patient refused to actively participate in exam and acknowledged that his refusal will prolong his hospitalization; however, after discussion 06/22 patient started to resume medications and encouragement offered. Concern raised about wounds from nursing. Wound on picture of RLE appears to be healing, but still notable ulceration. Discussed with patient--will attempt to reach Dr Mckenzie for discussion #Cellulitis of left lower leg: #Possible infected chronic right foot wound/ulcer right foot cellulitis, right lower extremity cellulitis Blood cultures negative Wound culture neg Completed 7 days of cefepime and meropenem Seen by Podiatry 06/03/2024; right lower extremity nonsalvageable, recommend di scussion regarding amputation, patient not ready at this point, prefers to discuss with his usual outpatient senior ui ux designer Dr. Mckenzie Seen by ID on 06/03/2024- didn't recommend prolong course of antibiotics. continue torsemide and Spironolactone for leg edema consulted wound care for photos and eval of wounds -recommendations reviewed will reach out and exchange records with Dr Mckenzie for "second opinion" #Atrial fibrillation with RVR: s/p diltiazem drip at arrival. c/w toprol xl 150 mg daily. Rate controlled for now. c/w Coumadin w/ pt/inr monitoring. Coumadin clinic on [place]. Concern that patient's rates will increase given refusal to take medications Continue to monitor on tele #Acute on Chronic heart failure with reduced EF noted on echo, EF slightly decreased to 30-35%. s/p iv diuresis, now on home dose of torsemide 20 mg bid and Aldactone 25 mg daily. continue. Patient aggressive about FR hence no FR, c/w low Na diet. -continue Aldactone, lisinopril resumed taking all home medications #Ileus: -resolved #Adult failure to thrive: -patient has had numerous hospitalizations in regards to failure to thrive at home -appears disheveled, found by EMS with pet at door, poor living conditions -high concern given psychiatric concerns and overall condition that patient will be unable to safely return home -previous attending discussed with manager rn case, filled out APS requested forms in regards to disposition Patient cannot be discharged without arrangements confirmed via APS Other chronic medical conditions: Continue with/resume home meds as and when able. T2DM: Sliding scale insulin. PVD: Status post left BKA amputation. Continue with home aspirin and Lipitor. Morbid obesity: Likely contributed to PVD and recurrent cellulitis. Counseling done. CKD: CKD stage III, stable. NINA on CPAP: Continue CPAP at bedtime. Cardiac defibrillator in situ: Noted Major depression disorder: Continue with duloxetine Lymphedema: Likely contributing to cellulitis. Follow-up with lymphedema clinic as an outpatient. Chronic pain syndrome: Checked PDMP, continue on home oxycodone. Dilaudid added for breakthrough pain. C/w duloxetine and pregabalin. DVT px: Coumadin Disposition: pending. manager rn case working to transition patient to SNF; however, course complicated due to med refusal Admission and Anticipated Discharge Date Admission Date: May 24, 2024 Subjective Patient more conversational today Discussed wounds on leg--reports he would like recommendations from Dr Mckenzie States that he has some abdominal cramping, reports history of Ibs like symptoms, agreeable to bentyl Physical Exam Constitutional: WD/WN, vitals as above Respiratory: diminished 2/2 effort Cardiovascular: irregularly irregular Results & Data Results & Data Vital Signs (Past 12 Hours) Vital Signs Temp Pulse Pulse Resp BP Pulse Ox O2 Del Method 06/24/24 16:08 36.6 C 64 16 96/60 L 92 Room Air 06/24/24 14:06 60 06/24/24 12:54 Room Air 06/24/24 11:56 36.4 C L 60 16 102/65 94 Room Air 06/24/24 09:30 119/74 06/24/24 08:00 36.7 C 73 16 93/60 L 92 Room Air 06/24/24 07:16 63 Laboratory Results Home Medications Medication Instructions Recorded Confirmed Last Taken Lantus Solostar U-100 Insulin 40 units SC BID 02/08/24 02/09/24 Unknown acetaminophen 325 mg tablet 650 mg PO QID PRN Pain 02/08/24 05/24/24 Unknown (Tylenol) aspirin 81 mg tablet,delayed 81 mg PO DAILY 02/08/24 05/24/24 05/22/24 release atorvastatin 80 mg tablet 80 mg PO DAILY 02/08/24 05/24/24 05/22/24 ergocalciferol (vitamin D2) 50,000 50,000 unit PO WK 02/08/24 05/24/24 05/17/24 unit tablet ferrous sulfate 325 mg (65 mg 325 mg PO BID 02/08/24 05/24/24 05/22/24 iron) tablet hyoscyamine sulfate 0.125 mg tablet 0.125 mg PO Q4H PRN Abdominal Pain 02/08/24 05/24/24 05/22/24 insulin aspart U-100 100 unit/mL 10 unit subcut AC 02/08/24 02/09/24 Unknown subcutaneous solution (Novolog U-100 Insulin aspart) levothyroxine 88 mcg tablet 88 mcg PO DAILY 02/08/24 05/24/24 05/22/24 metoprolol tartrate 50 mg tablet 50 mg PO BID 02/08/24 05/24/24 05/22/24 multivitamin,om-pdfu-Wg-FA-min 1 tab PO DAILY 02/08/24 02/09/24 Unknown nystatin 1 applic EXT UD 02/08/24 05/24/24 05/22/24 omeprazole 20 mg capsule,delayed 20 mg PO DAILY 02/08/24 05/24/24 05/22/24 release oxycodone 10 mg tablet 10 mg PO Q4H PRN Pain, Severe 02/08/24 05/24/24 05/22/24 potassium chloride 20 mEq 20 meq PO BID 02/08/24 05/24/24 05/22/24 tablet,extended release(part/cryst) pregabalin 50 mg capsule 50 mg PO BID 02/08/24 05/24/24 05/22/24 sitagliptin phosphate 50 mg tablet 50 mg PO DAILY 02/08/24 05/24/24 05/22/24 (Januvia) spironolactone 25 mg tablet 25 mg PO DAILY 02/09/24 05/24/24 05/22/24 triamcinolone acetonide 0.1 % 1 applic topical TID 02/09/24 05/24/24 Unknown lotion warfarin 3 mg tablet 3 mg PO DAILY 02/09/24 05/24/24 05/22/24 ammonium lactate 12 % lotion 1 applic topical DAILY 05/24/24 05/24/24 05/22/24 betamethasone dipropionate 0.05 % 1 applic topical BID 05/24/24 05/24/24 Unknown topical cream loratadine 10 mg tablet 10 mg PO DAILY 05/24/24 05/24/24 05/22/24 torsemide 20 mg tablet 20 mg PO BID 05/24/24 05/24/24 05/22/24 Active Medications Generic Name Dose Route Start Last Admin Trade Name Freq PRN Reason Stop Dose Admin Acetaminophen 500 mg 05/24/24 00:57 06/23/24 08:50 Acetaminophen 500 Mg Tab PO 07/23/24 00:56 500 mg Q6H PRN Administration fever/pain Aspirin 81 mg 05/24/24 09:00 06/24/24 09:27 Aspirin 81 Mg Ectab PO 07/23/24 08:59 81 mg DAILY MATT Administration Betamethasone Valerate 1 appln 05/24/24 09:00 06/24/24 15:05 Betamethasone Maryann 0.1% Cr 15 Gm TOP 07/23/24 08:59 1 appln TID MATT Administration Dicyclomine HCl 10 mg 06/24/24 10:00 06/24/24 12:51 Dicyclomine Hcl 10 Mg Cap PO 07/24/24 09:59 10 mg QID MATT Administration Duloxetine HCl 60 mg 05/28/24 09:00 06/24/24 09:27 Duloxetine Hcl 60 Mg Cap PO 07/23/24 08:59 60 mg QAM MATT Administration Famotidine 10 mg 05/25/24 11:55 06/21/24 21:33 Famotidine 10 Mg Tablet PO 07/23/24 11:54 10 mg BID PRN Administration gerd Hydromorphone HCl 2 mg 06/23/24 16:14 06/24/24 15:04 Hydromorphone Hcl 2 Mg Tab PO 07/06/24 04:01 2 mg Q4H PRN Administration Severe Pain (Scale 7, 8, 9,10) Insulin Aspart 0 units 05/24/24 07:30 06/24/24 15:04 Insulin Aspart Per Unit Charge SC 07/23/24 07:29 13 units ACHS MATT Administration Lactobacillus Acidophilus 1,250 mg 06/02/24 09:00 06/24/24 09:32 Advanced Probiotic 625 Mg Capsule PO 07/23/24 08:59 1,250 mg DAILY MATT Administration Levothyroxine Sodium 88 mcg 05/24/24 06:30 06/24/24 06:08 Levothyroxine Sodium 88 Mcg Tablet PO 07/23/24 06:29 88 mcg DAILYBB MATT Administration Lisinopril 5 mg 05/28/24 09:00 06/24/24 09:29 Lisinopril 5 Mg Tab PO 07/23/24 08:59 5 mg QAM MATT Administration Metoprolol Succinate 150 mg 05/26/24 09:00 06/24/24 09:29 Metoprolol Succ 50mg Ext Rel Tab PO 07/23/24 08:59 150 mg QAM MATT Administration Miscellaneous 15 - 30 gm 05/24/24 03:30 05/28/24 11:52 Carbohydrates For Hypoglycemia PO 07/23/24 03:29 15 gm UD PRN Administration Hypoglycemia Treatment Nystatin 1 appln 05/24/24 01:00 06/24/24 09:29 Nystatin Powder 15gm Btl EXT 07/23/24 00:59 1 appln BID MATT Administration Ondansetron HCl 4 mg 05/29/24 08:28 06/24/24 08:40 Ondansetron Inj 2 Mg/Ml 2 Ml Vial IV 07/23/24 08:27 4 mg Q6H PRN Administration Nausea And Vomiting Pantoprazole Sodium 40 mg 05/30/24 21:00 06/24/24 09:27 Pantoprazole 40 Mg Tab PO 07/23/24 20:59 40 mg BID MATT Administration Polyethylene Glycol 17 gm 05/30/24 21:00 06/24/24 09:31 Polyethylene (Miralax) 17 Gm Pack PO 07/23/24 20:59 17 gm BID MATT Administration Pregabalin 75 mg 05/29/24 21:00 06/24/24 15:05 Pregabalin 75 Mg Cap PO 07/23/24 20:59 75 mg TID MATT Administration Senna/Docusate Sodium 2 tab 05/30/24 21:00 06/24/24 09:27 Docusate Sodium/Senna 50/8.6mg Tab PO 07/23/24 20:59 2 tab BID MATT Administration Spironolactone 25 mg 05/28/24 09:00 06/24/24 09:28 Spironolactone 25 Mg Tab PO 07/23/24 08:59 25 mg DAILY MATT Administration Sucralfate 1 gm 06/01/24 17:00 06/24/24 16:58 Sucralfate 1 Gm/10 Ml Udc PO 07/23/24 16:59 1 gm QID MATT Administration Torsemide 20 mg 06/16/24 09:00 06/24/24 16:58 Torsemide 20 Mg Tab PO 07/16/24 08:59 20 mg [id number] MATT Administration Warfarin Sodium 3 mg 06/24/24 16:00 06/24/24 16:58 Warfarin Sod 3 Mg Tab PO 07/24/24 15:59 3 mg DAILY@1600 MATT Administration Zinc Acetate/Diphenhydramine 1 appln 05/24/24 03:17 06/24/24 09:32 Diphenhydramine 2%/Zinc 0.1% Cream 28.4gm Tube EXT 07/23/24 03:16 1 appln QID PRN Administration itchy skin
[2024-06-24] MEDS: LANTUS PER UNIT CHARGE SC SCH (21:05)
[2024-06-25 10:11] LABS: Hematocrit (blood only) 40.2 % (42.0-52.0); Hemoglobin 12.8 g/dl (14.0-18.0); Mean Corpuscular Hemoglobin 27.6 pg (25.0-34.0); Mean Corpuscular Hgb Conc 31.8 g/dL (32.0-36.0); Mean Corpuscular Volume 86.6 fL (80.0-100.0); Mean Platelet Volume 9.7 fL (9.4-12.4); Platelet Count 252 K/uL (130-400); RDW Coefficient of Variation 17.7 % (11.5-14.5); RDW Standard Deviation 57.1 fL (36.4-46.3); Red Blood Count 4.64 M/uL (4.70-6.10); White Blood Count 4.85 K/ul (4.8-10.8)
[2024-06-25 10:30] LABS: BUN Creatinine Ratio 18.6 (10-20); Calcium 8.8 mg/dl (8.6-10.3); Creatinine Clr Calc Pharmacy 103.1 ml/min; Magnesium 1.7 mg/dl (1.7-2.4); Phosphorus 3.6 mg/dl (2.5-4.9); Potassium 3.7 mmol/L (3.5-5.1)
[2024-06-25 10:35] LABS: Prothrombin Time 20.5 Seconds (9.0-12.0)
--- NOTE | 2024-06-25 14:16 | Hospitalist Progress Note ---
Date of Service June 25, 2024 Assessment & Plan (1) Atrial fibrillation with RVR: Plan: Mr. 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 Patient's course prolonged given APS involvement and placement issues. Case management following. Patient was compliant with medications; however, as of 06/21, patient has started to refuse medications as he is frustrated he cannot go back home immediately. Encouraged and counseled patient that if he does not take his meds he will further prevent discharge and opportunity to display ability to care for self. Patient refused to actively participate in exam and acknowledged that his refusal will prolong his hospitalization; however, after discussion 06/22 patient started to resume medications and encouragement offered. Concern raised about wounds from nursing. Wound on picture of RLE appears to be healing, but still notable ulceration. Discussed with patient--will attempt to reach Dr Mckenzie for discussion. Wound care evaluated and recommendations acknowledged. Plan to send records to primary furniture assembly supervisor come Thursday #Cellulitis of left lower leg: #Possible infected chronic right foot wound/ulcer right foot cellulitis, right lower extremity cellulitis Blood cultures negative Wound culture neg Completed 7 days of cefepime and meropenem Seen by Podiatry 06/03/2024; right lower extremity nonsalvageable, recommend discussion regarding amputation, patient not ready at this point, prefers to discuss with his usual outpatient furniture assembly supervisor Dr. Mckenzie Seen by ID on 06/03/2024- didn't recommend prolong course of antibiotics. continue torsemide and Spironolactone for leg edema consulted wound care for photos and eval of wounds -recommendations reviewed will reach out and exchange records with Dr Mckenzie for "second opinion" -plan to fax imaging to office in hopes to facilitate discussion per patient request #Atrial fibrillation with RVR: s/p diltiazem drip at arrival. c/w toprol xl 150 mg daily. Rate controlled for now. c/w Coumadin w/ pt/inr monitoring. Coumadin clinic on [place]. patient consistent with medications at this time and more cooperative Continue to monitor on tele #Acute on Chronic heart failure with reduced EF *stable noted on echo, EF slightly decreased to 30-35%. s/p iv diuresis, now on home dose of torsemide 20 mg bid and Aldactone 25 mg daily. continue. Patient aggressive about FR hence no FR, c/w low Na diet. -continue Aldactone, lisinopril resumed taking all home medications #Ileus: -resolved #Adult failure to thrive: -patient has had numerous hospitalizations in regards to failure to thrive at home -appears disheveled, found by EMS with pet at door, poor living conditions -high concern given psychiatric concerns and overall condition that patient will be unable to safely return home -previous attending discussed with showcase trimmer, filled out APS requested forms in regards to disposition Patient cannot be discharged without arrangements confirmed via APS Other chronic medical conditions: Continue with/resume home meds as and when able. T2DM: Sliding scale insulin. PVD: Status post left BKA amputation. Continue with home aspirin and Lipitor. Morbid obesity: Likely contributed to PVD and recurrent cellulitis. Counseling done. CKD: CKD stage III, stable. NINA on CPAP: Continue CPAP at bedtime. Cardiac defibrillator in situ: Noted Major depression disorder: Continue with duloxetine Lymphedema: Likely contributing to cellulitis. Follow-up with lymphedema clinic as an outpatient. Chronic pain syndrome: Checked PDMP, continue on home oxycodone. Dilaudid added for breakthrough pain. C/w duloxetine and pregabalin. DVT px: Coumadin Disposition: pending. showcase trimmer working to transition patient to SNF; able to discuss with patient and he is working to comply with medications, requires support and encouragement. Admission and Anticipated Discharge Date Admission Date: May 24, 2024 Subjective NAEO Reports feeling stable overall, and improved abdominal pain with the bentyl More calm and interactive today Physical Exam Constitutional: WD/WN, vitals as above Respiratory: normal respiratory effort, lungs clear to auscultation Cardiovascular: RRR, no murmur, no edema Skin: clean dressing in LLE Results & Data Results & Data Vital Signs (Past 12 Hours) Vital Signs Temp Pulse Pulse Resp BP BP Pulse Ox 06/25/24 11:35 36.7 C 70 18 126/79 95 06/25/24 07:45 36.6 C 71 18 101/61 95 06/25/24 07:29 68 06/25/24 02:53 36.6 C 63 18 116/78 92 O2 Del Method 06/25/24 11:35 Room Air 06/25/24 07:45 Room Air 06/25/24 07:29 06/25/24 02:53 Room Air Laboratory Results Short CBC 06/25/24 Range/Units 09:24 WBC 4.85 (4.8-10.8) K/ul Hgb 12.8 L (14.0-18.0) g/dl Hct 40.2 L (42.0-52.0) % Plt Count 252 (130-400) K/uL BMP 06/25/24 09:24 Sodium 138 Potassium 3.7 Chloride 99 Carbon Dioxide 31 BUN 21 Creatinine 1.13 Glucose 228 H Calcium 8.8 Medications Administered Home Medications Medication Instructions Recorded Confirmed Last Taken Lantus Solostar U-100 Insulin 40 units SC BID 02/08/24 02/09/24 Unknown acetaminophen 325 mg tablet 650 mg PO QID PRN Pain 02/08/24 05/24/24 Unknown (Tylenol) aspirin 81 mg tablet,delayed 81 mg PO DAILY 02/08/24 05/24/24 05/22/24 release atorvastatin 80 mg tablet 80 mg PO DAILY 02/08/24 05/24/24 05/22/24 ergocalciferol (vitamin D2) 50,000 50,000 unit PO WK 02/08/24 05/24/24 05/17/24 unit tablet ferrous sulfate 325 mg (65 mg 325 mg PO BID 02/08/24 05/24/24 05/22/24 iron) tablet hyoscyamine sulfate 0.125 mg tablet 0.125 mg PO Q4H PRN Abdominal Pain 02/08/24 05/24/24 05/22/24 insulin aspart U-100 100 unit/mL 10 unit subcut AC 02/08/24 02/09/24 Unknown subcutaneous solution (Novolog U-100 Insulin aspart) levothyroxine 88 mcg tablet 88 mcg PO DAILY 02/08/24 05/24/2405/22/25 metoprolol tartrate 50 mg tablet 50 mg PO BID 02/08/24 05/24/24 05/22/24 multivitamin,ea-cdfz-Zn-FA-min 1 tab PO DAILY 02/08/24 02/09/24 Unknown nystatin 1 applic EXT UD 02/08/24 05/24/24 05/22/24 omeprazole 20 mg capsule,delayed 20 mg PO DAILY 02/08/24 05/24/24 05/22/24 release oxycodone 10 mg tablet 10 mg PO Q4H PRN Pain, Severe 02/08/24 05/24/24 05/22/24 potassium chloride 20 mEq 20 meq PO BID 02/08/24 05/24/24 05/22/24 tablet,extended release(part/cryst) pregabalin 50 mg capsule 50 mg PO BID 02/08/24 05/24/24 05/22/24 sitagliptin phosphate 50 mg tablet 50 mg PO DAILY 02/08/24 05/24/24 05/22/24 (Januvia) spironolactone 25 mg tablet 25 mg PO DAILY 02/09/24 05/24/24 05/22/24 triamcinolone acetonide 0.1 % 1 applic topical TID 02/09/24 05/24/24 Unknown lotion warfarin 3 mg tablet 3 mg PO DAILY 02/09/24 05/24/24 05/22/24 ammonium lactate 12 % lotion 1 applic topical DAILY 05/24/24 05/24/24 05/22/24 betamethasone dipropionate 0.05 % 1 applic topical BID 05/24/24 05/24/24 Unknown topical cream loratadine 10 mg tablet 10 mg PO DAILY 05/24/24 05/24/24 05/22/24 torsemide 20 mg tablet 20 mg PO BID 05/24/24 05/24/24 05/22/24 Active Medications Generic Name Dose Route Start Last Admin Trade Name Freq PRN Reason Stop Dose Admin Acetaminophen 500 mg 05/24/24 00:57 06/23/24 08:50 Acetaminophen 500 Mg Tab PO 07/23/24 00:56 500 mg Q6H PRN Administration fever/pain Aspirin 81 mg 05/24/24 09:00 06/25/24 08:04 Aspirin 81 Mg Ectab PO 07/23/24 08:59 81 mg DAILY MATT Administration Betamethasone Valerate 1 appln 05/24/24 09:00 06/25/24 13:14 Betamethasone Maryann 0.1% Cr 15 Gm TOP 07/23/24 08:59 1 appln TID MATT Administration Dicyclomine HCl 10 mg 06/24/24 10:00 06/25/24 13:14 Dicyclomine Hcl 10 Mg Cap PO 07/24/24 09:59 10 mg QID MATT Administration Duloxetine HCl 60 mg 05/28/24 09:00 06/25/24 08:04 Duloxetine Hcl 60 Mg Cap PO 07/23/24 08:59 60 mg QAM MATT Administration Famotidine 10 mg 05/25/24 11:55 06/21/24 21:33 Famotidine 10 Mg Tablet PO 07/23/24 11:54 10 mg BID PRN Administration gerd Hydromorphone HCl 2 mg 06/23/24 16:14 06/24/24 21:04 Hydromorphone Hcl 2 Mg Tab PO 07/06/24 04:01 2 mg Q4H PRN Administration Severe Pain (Scale 7, 8, 9,10) Insulin Aspart 0 units 05/24/24 07:30 06/25/24 13:12 Insulin Aspart Per Unit Charge SC 07/23/24 07:29 13 units ACHS MATT Administration Insulin Glargine 10 units 06/24/24 21:00 06/24/24 21:05 Lantus Per Unit Charge SC 07/18/24 20:59 10 units HS MATT Administration Lactobacillus Acidophilus 1,250 mg 06/02/24 09:00 06/25/24 08:04 Advanced Probiotic 625 Mg Capsule PO 07/23/24 08:59 1,250 mg DAILY MATT Administration Levothyroxine Sodium 88 mcg 05/24/24 06:30 06/25/24 05:33 Levothyroxine Sodium 88 Mcg Tablet PO 07/23/24 06:29 88 mcg DAILYBB MATT Administration Lisinopril 5 mg 05/28/24 09:00 06/25/24 08:02 Lisinopril 5 Mg Tab PO 07/23/24 08:59 5 mg QAM MATT Administration Metoprolol Succinate 150 mg 05/26/24 09:00 06/25/24 08:02 Metoprolol Succ 50mg Ext Rel Tab PO 07/23/24 08:59 150 mg QAM MATT Administration Miscellaneous 15 - 30 gm 05/24/24 03:30 05/28/24 11:52 Carbohydrates For Hypoglycemia PO 07/23/24 03:29 15 gm UD PRN Administration Hypoglycemia Treatment Nystatin 1 appln 05/24/24 01:00 06/25/24 08:07 Nystatin Powder 15gm Btl EXT 07/23/24 00:59 1 appln BID MATT Administration Ondansetron HCl 4 mg 05/29/24 08:28 06/25/24 08:02 Ondansetron Inj 2 Mg/Ml 2 Ml Vial IV 07/23/24 08:27 4 mg Q6H PRN Administration Nausea And Vomiting Pantoprazole Sodium 40 mg 05/30/24 21:00 06/25/24 08:04 Pantoprazole 40 Mg Tab PO 07/23/24 20:59 40 mg BID MATT Administration Polyethylene Glycol 17 gm 05/30/24 21:00 06/25/24 08:02 Polyethylene (Miralax) 17 Gm Pack PO 07/23/24 20:59 17 gm BID MATT Administration Pregabalin 75 mg 05/29/24 21:00 06/25/24 13:14 Pregabalin 75 Mg Cap PO 07/23/24 20:59 75 mg TID MATT Administration Senna/Docusate Sodium 2 tab 05/30/24 21:00 06/25/24 08:02 Docusate Sodium/Senna 50/8.6mg Tab PO 07/23/24 20:59 2 tab BID MATT Administration Spironolactone 25 mg 05/28/24 09:00 06/25/24 08:06 Spironolactone 25 Mg Tab PO 07/23/24 08:59 25 mg DAILY MATT Administration Sucralfate 1 gm 06/01/24 17:00 06/25/24 13:13 Sucralfate 1 Gm/10 Ml Udc PO 07/23/24 16:59 1 gm QID MATT Administration Torsemide 20 mg 06/16/24 09:00 06/25/24 08:02 Torsemide 20 Mg Tab PO 07/16/24 08:59 20 mg [id number] MATT Administration Warfarin Sodium 3 mg 06/24/24 16:00 06/24/24 16:58 Warfarin Sod 3 Mg Tab PO 07/24/24 15:59 3 mg DAILY@1600 MATT Administration Zinc Acetate/Diphenhydramine 1 appln 05/24/24 03:17 06/25/24 08:07 Diphenhydramine 2%/Zinc 0.1% Cream 28.4gm Tube EXT 07/23/24 03:16 1 appln QID PRN Administration itchy skin
--- NOTE | 2024-06-26 15:04 | Hospitalist Progress Note ---
Date of Service June 26, 2024 Assessment & Plan (1) Atrial fibrillation with RVR: Plan: Mr. 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 Patient's course prolonged given APS involvement and placement issues. Case management following. Patient was compliant with medications; however, as of 06/21, patient has started to refuse medications as he is frustrated he cannot go back home immediately. Encouraged and counseled patient that if he does not take his meds he will further prevent discharge and opportunity to display ability to care for self. Patient refused to actively participate in exam and acknowledged that his refusal will prolong his hospitalization; however, after discussion 06/22 patient started to resume medications and encouragement offered. Concern raised about wounds from nursing. Wound on picture of RLE appears to be healing, but still notable ulceration. Discussed with patient--will attempt to reach Dr Mckenzie for discussion. Wound care evaluated and recommendations acknowledged. Plan to send records to primary experimental flight test mechanic come Thursday No active changes to medical management #Cellulitis of left lower leg: #Possible infected chronic right foot wound/ulcer right foot cellulitis, right lower extremity cellulitis Blood cultures negative Wound culture neg Completed 7 days of cefepime and meropenem Seen by Podiatry 06/03/2024; right lower extremity nonsalvageable, recommend discussion regarding amputation, patient not ready at this point, prefers to discuss with his usual outpatient experimental flight test mechanic Dr. Mckenzie Seen by ID on 06/03/2024- didn't recommend prolong course of antibiotics. continue torsemide and Spironolactone for leg edema consulted wound care for photos and eval of wounds -recommendations reviewed will reach out and exchange records with Dr Mckenzie for "second opinion" -plan to fax imaging to office in hopes to facilitate discussion per patient request #Atrial fibrillation with RVR: s/p diltiazem drip at arrival. c/w toprol xl 150 mg daily. Rate controlled for now. c/w Coumadin w/ pt/inr monitoring. Coumadin clinic on [place]. patient consistent with medications at this time and more cooperative Continue to monitor on tele #Acute on Chronic heart failure with reduced EF *stable noted on echo, EF slightly decreased to 30-35%. s/p iv diuresis, now on home dose of torsemide 20 mg bid and Aldactone 25 mg daily. continue. Patient aggressive about FR hence no FR, c/w low Na diet. -continue Aldactone, lisinopril resumed taking all home medications #Ileus: -resolved #Adult failure to thrive: -patient has had numerous hospitalizations in regards to failure to thrive at home -appears disheveled, found by EMS with pet at door, poor living conditions -high concern given psychiatric concerns and overall condition that patient will be unable to safely return home -previous attending discussed with ed case manager, filled out APS requested forms in regards to disposition Patient cannot be discharged without arrangements confirmed via APS Other chronic medical conditions: Continue with/resume home meds as and when able. T2DM: Sliding scale insulin. PVD: Status post left BKA amputation. Continue with home aspirin and Lipitor. Morbid obesity: Likely contributed to PVD and recurrent cellulitis. Counseling done. CKD: CKD stage III, stable. NINA on CPAP: Continue CPAP at bedtime. Cardiac defibrillator in situ: Noted Major depression disorder: Continue with duloxetine Lymphedema: Likely contributing to cellulitis. Follow-up with lymphedema clinic as an outpatient. Chronic pain syndrome: Checked PDMP, continue on home oxycodone. Dilaudid added for breakthrough pain. C/w duloxetine and pregabalin. DVT px: Coumadin Disposition: pending. ed case manager working to transition patient to SNF; able to discuss with patient and he is working to comply with medications, requires support and encouragement. Admission and Anticipated Discharge Date Admission Date: May 24, 2024 Subjective NAEO No new concerns reported overnight Physical Exam Respiratory: normal respiratory effort, lungs clear to auscultation Cardiovascular: irregularly irregular Results & Data Results & Data Vital Signs (Past 12 Hours) Vital Signs Temp Pulse Pulse Resp BP Pulse Ox O2 Del Method 06/26/24 14:19 56 L 06/26/24 11:48 36.4 C L 59 L 18 103/62 94 Room Air 06/26/24 11:31 Room Air 06/26/24 07:46 36.5 C 64 18 124/82 92 Room Air 06/26/24 07:08 66 Medications Administered Home Medications Medication Instructions Recorded Confirmed Last Taken Lantus Solostar U-100 Insulin 40 units SC BID 02/08/24 02/09/24 Unknown acetaminophen 325 mg tablet 650 mg PO QID PRN Pain 02/08/24 05/24/24 Unknown (Tylenol) aspirin 81 mg tablet,delayed 81 mg PO DAILY 02/08/24 05/24/24 05/22/24 release atorvastatin 80 mg tablet 80 mg PO DAILY 02/08/24 05/24/24 05/22/24 ergocalciferol (vitamin D2) 50,000 50,000 unit PO WK 02/08/24 05/24/24 05/17/24 unit tablet ferrous sulfate 325 mg (65 mg 325 mg PO BID 02/08/24 05/24/24 05/22/24 iron) tablet hyoscyamine sulfate 0.125 mg tablet 0.125 mg PO Q4H PRN Abdominal Pain 02/08/24 05/24/24 05/22/24 insulin aspart U-100 100 unit/mL 10 unit subcut AC 02/08/24 02/09/24 Unknown subcutaneous solution (Novolog U-100 Insulin aspart) levothyroxine 88 mcg tablet 88 mcg PO DAILY 02/08/24 05/24/24 05/22/24 metoprolol tartrate 50 mg tablet 50 mg PO BID 02/08/24 05/24/24 05/22/24 multivitamin,pc-oxwn-Ec-FA-min 1 tab PO DAILY 02/08/24 02/09/24 Unknown nystatin 1 applic EXT UD 02/08/24 05/24/24 05/22/24 omeprazole 20 mg capsule,delayed 20 mg PO DAILY 02/08/24 05/24/24 05/22/24 release oxycodone 10 mg tablet 10 mg PO Q4H PRN Pain, Severe 02/08/24 05/24/24 05/22/24 potassium chloride 20 mEq 20 meq PO BID 02/08/24 05/24/24 05/22/24 tablet,extended release(part/cryst) pregabalin 50 mg capsule 50 mg PO BID 02/08/24 05/24/24 05/22/24 sitagliptin phosphate 50 mg tablet 50 mg PO DAILY 02/08/24 05/24/24 05/22/24 (Januvia) spironolactone 25 mg tablet 25 mg PO DAILY 02/09/24 05/24/24 05/22/24 triamcinolone acetonide 0.1 % 1 applic topical TID 02/09/24 05/24/24 Unknown lotion warfarin 3 mg tablet 3 mg PO DAILY 02/09/24 05/24/24 05/22/24 ammonium lactate 12 % lotion 1 applic topical DAILY 05/24/24 05/24/24 05/22/24 betamethasone dipropionate 0.05 % 1 applic topical BID 05/24/24 05/24/24 Unknown topical cream loratadine 10 mg tablet 10 mg PO DAILY 05/24/24 05/24/24 05/22/24 torsemide 20 mg tablet 20 mg PO BID 05/24/24 05/24/24 05/22/24 Active Medications Generic Name Dose Route Start Last Admin Trade Name Freq PRN Reason Stop Dose Admin Acetaminophen 500 mg 05/24/24 00:57 06/23/24 08:50 Acetaminophen 500 Mg Tab PO 07/23/24 00:56 500 mg Q6H PRN Administration fever/pain Aspirin 81 mg 05/24/24 09:00 06/26/24 07:54 Aspirin 81 Mg Ectab PO 07/23/24 08:59 81 mg DAILY MATT Administration Betamethasone Valerate 1 appln 05/24/24 09:00 06/26/24 13:03 Betamethasone Maryann 0.1% Cr 15 Gm TOP 07/23/24 08:59 1 appln TID MATT Administration Dicyclomine HCl 10 mg 06/24/24 10:00 06/26/24 13:03 Dicyclomine Hcl 10 Mg Cap PO 07/24/24 09:59 10 mg QID MATT Administration Duloxetine HCl 60 mg 05/28/24 09:00 06/26/24 07:54 Duloxetine Hcl 60 Mg Cap PO 07/23/24 08:59 60 mg QAM MATT Administration Famotidine 10 mg 05/25/24 11:55 06/21/24 21:33 Famotidine 10 Mg Tablet PO 07/23/24 11:54 10 mg BID PRN Administration gerd Hydromorphone HCl 2 mg 06/23/24 16:14 06/26/24 06:13 Hydromorphone Hcl 2 Mg Tab PO 07/06/24 04:01 2 mg Q4H PRN Administration Severe Pain (Scale 7, 8, 9,10) Insulin Aspart 0 units 05/24/24 07:30 06/26/24 12:48 Insulin Aspart Per Unit Charge SC 07/23/24 07:29 13 units ACHS MATT Administration Insulin Glargine 10 units 06/24/24 21:00 06/25/24 21:18 Lantus Per Unit Charge SC 07/18/24 20:59 10 units HS MATT Administration Lactobacillus Acidophilus 1,250 mg 06/02/24 09:00 06/26/24 07:56 Advanced Probiotic 625 Mg Capsule PO 07/23/24 08:59 1,250 mg DAILY MATT Administration Levothyroxine Sodium 88 mcg 05/24/24 06:30 06/26/24 06:13 Levothyroxine Sodium 88 Mcg Tablet PO 07/23/24 06:29 88 mcg DAILYBB MATT Administration Lisinopril 5 mg 05/28/24 09:00 06/26/24 07:53 Lisinopril 5 Mg Tab PO 07/23/24 08:59 5 mg QAM MATT Administration Metoprolol Succinate 150 mg 05/26/24 09:00 06/26/24 07:53 Metoprolol Succ 50mg Ext Rel Tab PO 07/23/24 08:59 150 mg QAM MATT Administration Miscellaneous 15 - 30 gm 05/24/24 03:30 05/28/24 11:52 Carbohydrates For Hypoglycemia PO 07/23/24 03:29 15 gm UD PRN Administration Hypoglycemia Treatment Nystatin 1 appln 05/24/24 01:00 06/26/24 07:55 Nystatin Powder 15gm Btl EXT 07/23/24 00:59 1 appln BID MATT Administration Ondansetron HCl 4 mg 05/29/24 08:28 06/25/24 08:02 Ondansetron Inj 2 Mg/Ml 2 Ml Vial IV 07/23/24 08:27 4 mg Q6H PRN Administration Nausea And Vomiting Pantoprazole Sodium 40 mg 05/30/24 21:00 06/26/24 07:54 Pantoprazole 40 Mg Tab PO 07/23/24 20:59 40 mg BID MATT Administration Polyethylene Glycol 17 gm 05/30/24 21:00 06/26/24 07:52 Polyethylene (Miralax) 17 Gm Pack PO 07/23/24 20:59 17 gm BID MATT Administration Pregabalin 75 mg 05/29/24 21:00 06/26/24 13:03 Pregabalin 75 Mg Cap PO 07/23/24 20:59 75 mg TID MATT Administration Senna/Docusate Sodium 2 tab 05/30/24 21:00 06/26/24 07:52 Docusate Sodium/Senna 50/8.6mg Tab PO 07/23/24 20:59 2 tab BID MATT Administration Spironolactone 25 mg 05/28/24 09:00 06/26/24 07:55 Spironolactone 25 Mg Tab PO 07/23/24 08:59 25 mg DAILY MATT Administration Sucralfate 1 gm 06/01/24 17:00 06/26/24 13:03 Sucralfate 1 Gm/10 Ml Udc PO 07/23/24 16:59 1 gm QID MATT Administration Torsemide 20 mg 06/16/24 09:00 06/26/24 07:54 Torsemide 20 Mg Tab PO 07/16/24 08:59 20 mg [id number] MATT Administration Warfarin Sodium 3 mg 06/24/24 16:00 06/25/24 15:27 Warfarin Sod 3 Mg Tab PO 07/24/24 15:59 3 mg DAILY@1600 MATT Administration Zinc Acetate/Diphenhydramine 1 appln 05/24/24 03:17 06/26/24 07:53 Diphenhydramine 2%/Zinc 0.1% Cream 28.4gm Tube EXT 07/23/24 03:16 1 appln QID PRN Administration itchy skin
[2024-06-27 09:12] LABS: INR 2.4 (0.9-1.1); Prothrombin Time 23.9 Seconds (9.0-12.0)
--- NOTE | 2024-06-27 17:13 | Hospitalist Progress Note ---
Date of Service June 27, 2024 Assessment & Plan (1) Atrial fibrillation with RVR: Plan: Mr. 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 Patient's course prolonged given APS involvement and placement issues. Case management following. Patient was compliant with medications; however, as of 06/21, patient has started to refuse medications as he is frustrated he cannot go back home immediately. Encouraged and counseled patient that if he does not take his meds he will further prevent discharge and opportunity to display ability to care for self. Patient refused to actively participate in exam and acknowledged that his refusal will prolong his hospitalization; however, after discussion 06/22 patient started to resume medications and encouragement offered. Discussion with Dr. Mckenzie, patient's OP form carpenter, had 06/27. He reports that multiple form carpenter have recommended BKA; however, he referred patient to [facility] where patient underwent multiple debridement. The recommendation was that patient should remain nonweightbearing, and utilize leg simply for transfers. Patient has limited reserve for healing, which is noted based upon changes in wound from admission. #Cellulitis of left lower leg: #Possible infected chronic right foot wound/ulcer right foot cellulitis, right lower extremity cellulitis Blood cultures negative Wound culture neg Completed 7 days of cefepime and meropenem Seen by Podiatry 06/03/2024; right lower extremity nonsalvageable, recommend discussion regarding amputation, patient not ready at this point, prefers to discuss with his usual outpatient form carpenter Dr. Mckenzie Seen by ID on 06/03/2024- didn't recommend prolong course of antibiotics. continue torsemide and Spironolactone for leg edema consulted wound care for photos and eval of wounds -recommendations reviewed Discussed with Dr. Mckenzie--recommendation previously was nonweightbearing outside of transfer, as concern for even ability to heal and care for self without RLE, as BKA would remove final opportunity for independence #Atrial fibrillation with RVR: s/p diltiazem drip at arrival. c/w toprol xl 150 mg daily. Rate controlled for now. c/w Coumadin w/ pt/inr monitoring. Coumadin clinic on DC. patient consistent with medications at this time and more cooperative Continue to monitor on tele #Acute on Chronic heart failure with reduced EF *stable noted on echo, EF slightly decreased to 30-35%. s/p iv diuresis, now on home dose of torsemide 20 mg bid and Aldactone 25 mg daily. continue. Patient aggressive about FR hence no FR, c/w low Na diet. -continue Aldactone, lisinopril resumed taking all home medications #Ileus: -resolved #Adult failure to thrive: -patient has had numerous hospitalizations in regards to failure to thrive at home -appears disheveled, found by EMS with pet at door, poor living conditions -high concern given psychiatric concerns and overall condition that patient will be unable to safely return home -previous attending discussed with pillowcase turner, filled out APS requested forms in regards to disposition Patient cannot be discharged without arrangements confirmed via APS Other chronic medical conditions: Continue with/resume home meds as and when able. T2DM: Sliding scale insulin. PVD: Status post left BKA amputation. Continue with home aspirin and Lipitor. Morbid obesity: Likely contributed to PVD and recurrent cellulitis. Counseling done. CKD: CKD stage III, stable. NINA on CPAP: Continue CPAP at bedtime. Cardiac defibrillator in situ: Noted Major depression disorder: Continue with duloxetine Lymphedema: Likely contributing to cellulitis. Follow-up with lymphedema clinic as an outpatient. Chronic pain syndrome: Checked PDMP, continue on home oxycodone. Dilaudid added for breakthrough pain. C/w duloxetine and pregabalin. DVT px: Coumadin Disposition: pending. pillowcase turner working to transition patient to SNF; able to discuss with patient and he is working to comply with medications, requires support and encouragement. Admission and Anticipated Discharge Date Admission Date: May 24, 2024 Subjective NAEO reports understanding why he is still here--seemingly understands that rehab is the next step before getting home Denies any new symptoms--uncontrolled pain, nausea, vomiting or other acute concerns Spoke to Dr. Mckenzie--patient was pleased to hear conversation with form carpenter Physical Exam Constitutional: WD/WN, vitals as above Respiratory: normal respiratory effort, lungs clear to auscultation Cardiovascular: irregularly irregular Skin: RLE with dressing in place Results & Data Results & Data Vital Signs (Past 12 Hours) Vital Signs Temp Pulse Pulse Resp BP Pulse Ox O2 Del Method 06/27/24 15:55 36.5 C 55 L 18 109/68 94 Room Air 06/27/24 15:00 68 06/27/24 07:30 36.7 C 71 18 121/67 94 Room Air 06/27/24 07:00 68 Medications Administered Home Medications Medication Instructions Recorded Confirmed Last Taken Lantus Solostar U-100 Insulin 40 units SC BID 02/08/24 02/09/24 Unknown acetaminophen 325 mg tablet 650 mg PO QID PRN Pain 02/08/24 05/24/24 Unknown (Tylenol) aspirin 81 mg tablet,delayed 81 mg PO DAILY 02/08/24 05/24/24 05/22/24 release atorvastatin 80 mg tablet 80 mg PO DAILY 02/08/24 05/24/24 05/22/24 ergocalciferol (vitamin D2) 50,000 50,000 unit PO WK 02/08/24 05/24/24 05/17/24 unit tablet ferrous sulfate 325 mg (65 mg 325 mg PO BID 02/08/24 05/24/24 05/22/24 iron) tablet hyoscyamine sulfate 0.125 mg tablet 0.125 mg PO Q4H PRN Abdominal Pain 02/08/24 05/24/24 05/22/24 insulin aspart U-100 100 unit/mL 10 unit subcut AC 02/08/24 02/09/24 Unknown subcutaneous solution (Novolog U-100 Insulin aspart) levothyroxine 88 mcg tablet 88 mcg PO DAILY 02/08/24 05/24/24 05/22/24 metoprolol tartrate 50 mg tablet 50 mg PO BID 02/08/24 05/24/24 05/22/24 multivitamin,gc-vezc-Mr-FA-min 1 tab PO DAILY 02/08/24 02/09/24 Unknown nystatin 1 applic EXT UD 02/08/24 05/24/24 05/22/24 omeprazole 20 mg capsule,delayed 20 mg PO DAILY 02/08/24 05/24/24 05/22/24 release oxycodone 10 mg tablet 10 mg PO Q4H PRN Pain, Severe 02/08/24 05/24/24 05/22/24 potassium chloride 20 mEq 20 meq PO BID 02/08/24 05/24/24 05/22/24 tablet,extended release(part/cryst) pregabalin 50 mg capsule 50 mg PO BID 02/08/24 05/24/24 05/22/24 sitagliptin phosphate 50 mg tablet 50 mg PO DAILY 02/08/24 05/24/24 05/22/24 (Januvia) spironolactone 25 mg tablet 25 mg PO DAILY 02/09/24 05/24/24 05/22/24 triamcinolone acetonide 0.1 % 1 applic topical TID 02/09/24 05/24/24 Unknown lotion warfarin 3 mg tablet 3 mg PO DAILY 02/09/24 05/24/24 05/22/24 ammonium lactate 12 % lotion 1 applic topical DAILY 05/24/24 05/24/24 05/22/24 betamethasone dipropionate 0.05 % 1 applic topical BID 05/24/24 05/24/24 Unknown topical cream loratadine 10 mg tablet 10 mg PO DAILY 05/24/24 05/24/24 05/22/24 torsemide 20 mg tablet 20 mg PO BID 05/24/24 05/24/24 05/22/24 Active Medications Generic Name Dose Route Start Last Admin Trade Name Freq PRN Reason Stop Dose Admin Acetaminophen 500 mg 05/24/24 00:57 06/23/24 08:50 Acetaminophen 500 Mg Tab PO 07/23/24 00:56 500 mg Q6H PRN Administration fever/pain Aspirin 81 mg 05/24/24 09:00 06/27/24 10:12 Aspirin 81 Mg Ectab PO 07/23/24 08:59 81 mg DAILY MATT Administration Betamethasone Valerate 1 appln 05/24/24 09:00 06/27/24 13:19 Betamethasone Maryann 0.1% Cr 15 Gm TOP 07/23/24 08:59 1 appln TID MATT Administration Dicyclomine HCl 10 mg 06/24/24 10:00 06/27/24 13:20 Dicyclomine Hcl 10 Mg Cap PO 07/24/24 09:59 10 mg QID MATT Administration Duloxetine HCl 60 mg 05/28/24 09:00 06/27/24 10:12 Duloxetine Hcl 60 Mg Cap PO 07/23/24 08:59 60 mg QAM MATT Administration Famotidine 10 mg 05/25/24 11:55 06/21/24 21:33 Famotidine 10 Mg Tablet PO 07/23/24 11:54 10 mg BID PRN Administration gerd Hydromorphone HCl 2 mg 06/23/24 16:14 06/27/24 10:55 Hydromorphone Hcl 2 Mg Tab PO 07/06/24 04:01 2 mg Q4H PRN Administration Severe Pain (Scale 7, 8, 9,10) Insulin Aspart 0 units 05/24/24 07:30 06/27/24 13:19 Insulin Aspart Per Unit Charge SC 07/23/24 07:29 15 units ACHS MATT Administration Insulin Glargine 10 units 06/24/24 21:00 06/26/24 21:31 Lantus Per Unit Charge SC 07/18/24 20:59 10 units HS MATT Administration Lactobacillus Acidophilus 1,250 mg 06/02/24 09:00 06/27/24 10:11 Advanced Probiotic 625 Mg Capsule PO 07/23/24 08:59 1,250 mg DAILY MATT Administration Levothyroxine Sodium 88 mcg 05/24/24 06:30 06/27/24 05:59 Levothyroxine Sodium 88 Mcg Tablet PO 07/23/24 06:29 88 mcg DAILYBB MATT Administration Lisinopril 5 mg 05/28/24 09:00 06/27/24 10:14 Lisinopril 5 Mg Tab PO 07/23/24 08:59 5 mg QAM MATT Administration Metoprolol Succinate 150 mg 05/26/24 09:00 06/27/24 10:11 Metoprolol Succ 50mg Ext Rel Tab PO 07/23/24 08:59 150 mg QAM MATT Administration Miscellaneous 15 - 30 gm 05/24/24 03:30 05/28/24 11:52 Carbohydrates For Hypoglycemia PO 07/23/24 03:29 15 gm UD PRN Administration Hypoglycemia Treatment Nystatin 1 appln 05/24/24 01:00 06/27/24 10:14 Nystatin Powder 15gm Btl EXT 07/23/24 00:59 1 appln BID MATT Administration Ondansetron HCl 4 mg 05/29/24 08:28 06/27/24 10:56 Ondansetron Inj 2 Mg/Ml 2 Ml Vial IV 07/23/24 08:27 4 mg Q6H PRN Administration Nausea And Vomiting Pantoprazole Sodium 40 mg 05/30/24 21:00 06/27/24 10:11 Pantoprazole 40 Mg Tab PO 07/23/24 20:59 40 mg BID MATT Administration Polyethylene Glycol 17 gm 05/30/24 21:00 06/27/24 10:10 Polyethylene (Miralax) 17 Gm Pack PO 07/23/24 20:59 17 gm BID MATT Administration Pregabalin 75 mg 05/29/24 21:00 06/27/24 13:20 Pregabalin 75 Mg Cap PO 07/23/24 20:59 75 mg TID MATT Administration Senna/Docusate Sodium 2 tab 05/30/24 21:00 06/27/24 10:10 Docusate Sodium/Senna 50/8.6mg Tab PO 07/23/24 20:59 2 tab BID MATT Administration Spironolactone 25 mg 05/28/24 09:00 06/27/24 10:11 Spironolactone 25 Mg Tab PO 07/23/24 08:59 25 mg DAILY MATT Administration Sucralfate 1 gm 06/01/24 17:00 06/27/24 17:14 Sucralfate 1 Gm/10 Ml Udc PO 07/23/24 16:59 1 gm QID MATT Administration Torsemide 20 mg 06/16/24 09:00 06/27/24 17:14 Torsemide 20 Mg Tab PO 07/16/24 08:59 20 mg [id number] MATT Administration Warfarin Sodium 3 mg 06/24/24 16:00 06/27/24 17:14 Warfarin Sod 3 Mg Tab PO 07/24/24 15:59 3 mg DAILY@1600 MATT Administration Zinc Acetate/Diphenhydramine 1 appln 05/24/24 03:17 06/26/24 07:53 Diphenhydramine 2%/Zinc 0.1% Cream 28.4gm Tube EXT 07/23/24 03:16 1 appln QID PRN Administration itchy skin
--- NOTE | 2024-06-28 07:25 | Pharmacy Report ---
Pharmacy Glycemic Short Note 2 - Date of Service June 28, 2024 - Glycemic Short BSG Results (Last 24 hours): 06/27/24 06/27/24 06/27/24 08:21 12:18 16:55 POC Glucose 164 H 228 H 97 06/27/24 20:33 POC Glucose 105 H OUTPATIENT ANTIDIABETIC REGIMEN: * Novolog pump * pre-meal target range: 90-150 mg/dL * post-meal target range: <220 mg/dL * Carb ratio: 1:3 g/unit * Correction factor: 1:30 unit/mg/dL * Basal rate: 7 units/hr (9911-2295), 6 units/hr (7306-9997), 7 units/hr (2623-3631) - 155 units/day HbA1c: 7.5% (02/09/24), 8.1% (04/2024 per H&P) ASSESSMENT: 06/28: * Blood sugars adequately controlled, some outliers, but no pattern to hyperglycemic events (about one BSG per day above goal, random times). No hypoglycemia. * Continue current insulin regimen. * CM:Referrals out to multiple facilities though no bed offering as of yet. Placement complicated by need for bariatric bed and likely transition to intermediate manager. 06/24: * Ben received 44 units of insulin yesterday, only 8 of which were basal. BSGs were: [phone] mg/dL. * Fasting BSG this AM continues to trend up, 207 mg/dL. Still believe we are seeing the effects of patient refusing basal a few days ago as he was relatively stable on 8 units of basal at bedtime. However, will opt to slightly increase basal this evening, even if only for a one time dose. Reassess tomorrow. * No changes in Novolog parameters. Eating better. 06/23: * After refusing insulin and BSG checks for ~24-36 hours, Mr. Mckeon did allow RN to give some insulin yesterday. Received 8 units basal + 16 units bolus. BSGs were 196-320-254 mg/dL. * Fasting BSG was 185 mg/dL this AM which is likely elevated secondary to basal deficiency from refusing insulin. Will not make any changes. * No changes to Novolog as patients BSGs were controlled when insulin was allowed to be given. PLAN FOR INPATIENT GLYCEMIC CONTROL: * Hold insulin pump * Basal insulin * Lantus 10 units SC HS * Bolus insulin * NovoLog per scale ACHS or Q6hrs while NPO * Goal Range: Low 120 mg/dL - High 150 mg/dL * Correction Factor: 30 mg/dL/unit * Nutritional / Prandial insulin per carb ratio of 1 unit per 6 grams CHO consumed
[2024-06-28 11:56] LABS: INR 2.6 (0.9-1.1)
[2024-06-28] MEDS: WARFARIN SOD 2 MG TAB PO SCH (16:22)
--- NOTE | 2024-06-28 16:29 | Hospitalist Progress Note ---
Date of Service June 28, 2024 Assessment & Plan (1) Atrial fibrillation with RVR: Plan: Mr. 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 Patient's course prolonged given APS involvement and placement issues. Case management following. Patient was compliant with medications; however, as of 06/21, patient has started to refuse medications as he is frustrated he cannot go back home immediately. Encouraged and counseled patient that if he does not take his meds he will further prevent discharge and opportunity to display ability to care for self. Patient refused to actively participate in exam and acknowledged that his refusal will prolong his hospitalization; however, after discussion 06/22 patient started to resume medications and encouragement offered. Discussion with Dr. Mckenzie, patient's OP plant protection superintendent, had 06/27. He reports that multiple plant protection superintendent have recommended BKA; however, he referred patient to [place] where patient underwent multiple debridement. The recommendation was that patient should remain nonweightbearing, and utilize leg simply for transfers. Patient has limited reserve for healing, which is noted based upon changes in wound from admission. Patient expressed valid concerns over communication from [facility] with himself about the involvement of the agency. Requested conversation as patient states that he has all the resources he needs and refuses to go to rehab or facility. Patient notes that he has an accessible home and works to keep up with his podiatry/wound care appointments. #Cellulitis of left lower leg: #Possible infected chronic right foot wound/ulcer right foot cellulitis, right lower extremity cellulitis Blood cultures negative Wound culture neg Completed 7 days of cefepime and meropenem Seen by Podiatry 06/03/2024; right lower extremity nonsalvageable, recommend discussion regarding amputation, patient not ready at this point, prefers to discuss with his usual outpatient plant protection superintendent Dr. Mckenzie Seen by ID on 06/03/2024- didn't recommend prolong course of antibiotics. continue torsemide and Spironolactone for leg edema consulted wound care for photos and eval of wounds -recommendations reviewed Discussed with Dr. Mckenzie--recommendation previously was nonweightbearing outside of transfer, as concern for even ability to heal and care for self without RLE, as BKA would remove final opportunity for independence #Atrial fibrillation with RVR: s/p diltiazem drip at arrival. c/w toprol xl 150 mg daily. Rate controlled for now. c/w Coumadin w/ pt/inr monitoring. Coumadin clinic on [place]. patient consistent with medications at this time and more cooperative Continue to monitor on tele #Acute on Chronic heart failure with reduced EF *stable noted on echo, EF slightly decreased to 30-35%. s/p iv diuresis, now on home dose of torsemide 20 mg bid and Aldactone 25 mg daily. continue. Patient aggressive about FR hence no FR, c/w low Na diet. -continue Aldactone, lisinopril resumed taking all home medications #Ileus: -resolved #Adult failure to thrive: -patient has had numerous hospitalizations in regards to failure to thrive at home -appears disheveled, found by EMS with pet at door, poor living conditions -high concern given psychiatric concerns and overall condition that patient will be unable to safely return home -previous attending discussed with vocational case manager, filled out APS requested forms in regards to disposition Patient cannot be discharged without arrangements confirmed via APS Other chronic medical conditions: Continue with/resume home meds as and when able. T2DM: Sliding scale insulin. PVD: Status post left BKA amputation. Continue with home aspirin and Lipitor. Morbid obesity: Likely contributed to PVD and recurrent cellulitis. Counseling done. CKD: CKD stage III, stable. NINA on CPAP: Continue CPAP at bedtime. Cardiac defibrillator in situ: Noted Major depression disorder: Continue with duloxetine Lymphedema: Likely contributing to cellulitis. Follow-up with lymphedema clinic as an outpatient. Chronic pain syndrome: Checked PDMP, continue on home oxycodone. Dilaudid a dded for breakthrough pain. C/w duloxetine and pregabalin. DVT px: Coumadin Disposition: pending. vocational case manager working to transition patient to SNF or undergo reeval from [facility] able to discuss with patient and he is working to comply with medications, requires support and encouragement. Admission and Anticipated Discharge Date Admission Date: May 24, 2024 Subjective NAEO Patient upset over situation with [facility] given no frequent communication Patient pleas that he has set up at home and everything he needs and begs to go home--verbalized understanding and offered support Denies any acute needs, just requesting [facility] discuss with him the situation Physical Exam Constitutional: WD/WN, vitals as above Respiratory: normal respiratory effort, lungs clear to auscultation Cardiovascular: irregularly irregular Results & Data Results & Data Vital Signs (Past 12 Hours) Vital Signs Temp Pulse Pulse Resp BP BP Pulse Ox 06/28/24 16:10 36.5 C 63 18 112/61 95 06/28/24 10:38 36.5 C 76 18 126/68 95 06/28/24 09:39 58 L 06/28/24 07:41 06/28/24 07:20 36.6 C 67 16 101/58 L 92 O2 Del Method 06/28/24 16:10 Room Air 06/28/24 10:38 Room Air 06/28/24 09:39 06/28/24 07:41 Room Air 06/28/24 07:20 Room Air Laboratory Results INR 2.6 Medications Administered Home Medications Medication Instructions Recorded Confirmed Last Taken Lantus Solostar U-100 Insulin 40 units SC BID 02/08/24 02/09/24 Unknown acetaminophen 325 mg tablet 650 mg PO QID PRN Pain 02/08/24 05/24/24 Unknown (Tylenol) aspirin 81 mg tablet,delayed 81 mg PO DAILY 02/08/24 05/24/24 05/22/24 release atorvastatin 80 mg tablet 80 mg PO DAILY 02/08/24 05/24/24 05/22/24 ergocalciferol (vitamin D2) 50,000 50,000 unit PO WK 02/08/24 05/24/24 05/17/24 unit tablet ferrous sulfate 325 mg (65 mg 325 mg PO BID 02/08/24 05/24/24 05/22/24 iron) tablet hyoscyamine sulfate 0.125 mg tablet 0.125 mg PO Q4H PRN Abdominal Pain 02/08/24 05/24/24 05/22/24 insulin aspart U-100 100 unit/mL 10 unit subcut AC 02/08/24 02/09/24 Unknown subcutaneous solution (Novolog U-100 Insulin aspart) levothyroxine 88 mcg tablet 88 mcg PO DAILY 02/08/24 05/24/24 05/22/24 metoprolol tartrate 50 mg tablet 50 mg PO BID 02/08/24 05/24/24 05/22/24 multivitamin,rd-sptg-Il-FA-min 1 tab PO DAILY 02/08/24 02/09/24 Unknown nystatin 1 applic EXT UD 02/08/24 05/24/24 05/22/24 omeprazole 20 mg capsule,delayed 20 mg PO DAILY 02/08/24 05/24/24 05/22/24 release oxycodone 10 mg tablet 10 mg PO Q4H PRN Pain, Severe 02/08/24 05/24/24 05/22/24 potassium chloride 20 mEq 20 meq PO BID 02/08/24 05/24/24 05/22/24 tablet,extended release(part/cryst) pregabalin 50 mg capsule 50 mg PO BID 02/08/24 05/24/24 05/22/24 sitagliptin phosphate 50 mg tablet 50 mg PO DAILY 02/08/24 05/24/24 05/22/24 (Januvia) spironolactone 25 mg tablet 25 mg PO DAILY 02/09/24 05/24/24 05/22/24 triamcinolone acetonide 0.1 % 1 applic topical TID 02/09/24 05/24/24 Unknown lotion warfarin 3 mg tablet 3 mg PO DAILY 02/09/24 05/24/24 05/22/24 ammonium lactate 12 % lotion 1 applic topical DAILY 05/24/24 05/24/24 05/22/24 betamethasone dipropionate 0.05 % 1 applic topical BID 05/24/24 05/24/24 Unknown topical cream loratadine 10 mg tablet 10 mg PO DAILY 05/24/24 05/24/24 05/22/24 torsemide 20 mg tablet 20 mg PO BID 05/24/24 05/24/24 05/22/24 Active Medications Generic Name Dose Route Start Last Admin Trade Name Freq PRN Reason Stop Dose Admin Acetaminophen 500 mg 05/24/24 00:57 06/23/24 08:50 Acetaminophen 500 Mg Tab PO 07/23/24 00:56 500 mg Q6H PRN Administration fever/pain Aspirin 81 mg 05/24/24 09:00 06/28/24 09:24 Aspirin 81 Mg Ectab PO 07/23/24 08:59 81 mg DAILY MATT Administration Betamethasone Valerate 1 appln 05/24/24 09:00 06/28/24 12:59 Betamethasone Maryann 0.1% Cr 15 Gm TOP 07/23/24 08:59 1 appln TID MATT Administration Dicyclomine HCl 10 mg 06/24/24 10:00 06/28/24 16:23 Dicyclomine Hcl 10 Mg Cap PO 07/24/24 09:59 10 mg QID MATT Administration Duloxetine HCl 60 mg 05/28/24 09:00 06/28/24 09:24 Duloxetine Hcl 60 Mg Cap PO 07/23/24 08:59 60 mg QAM MATT Administration Famotidine 10 mg 05/25/24 11:55 06/21/24 21:33 Famotidine 10 Mg Tablet PO 07/23/24 11:54 10 mg BID PRN Administration gerd Hydromorphone HCl 2 mg 06/23/24 16:14 06/28/24 12:58 Hydromorphone Hcl 2 Mg Tab PO 07/06/24 04:01 2 mg Q4H PRN Administration Severe Pain (Scale 7, 8, 9,10) Insulin Aspart 0 units 05/24/24 07:30 06/28/24 12:39 Insulin Aspart Per Unit Charge SC 07/23/24 07:29 19 units ACHS MATT Administration Insulin Glargine 10 units 06/24/24 21:00 06/27/24 20:50 Lantus Per Unit Charge SC 07/18/24 20:59 10 units HS MATT Administration Lactobacillus Acidophilus 1,250 mg 06/02/24 09:00 06/28/24 09:24 Advanced Probiotic 625 Mg Capsule PO 07/23/24 08:59 1,250 mg DAILY MATT Administration Levothyroxine Sodium 88 mcg 05/24/24 06:30 06/28/24 06:11 Levothyroxine Sodium 88 Mcg Tablet PO 07/23/24 06:29 88 mcg DAILYBB MATT Administration Lisinopril 5 mg 05/28/24 09:00 06/28/24 09:24 Lisinopril 5 Mg Tab PO 07/23/24 08:59 5 mg QAM MATT Administration Metoprolol Succinate 150 mg 05/26/24 09:00 06/28/24 09:24 Metoprolol Succ 50mg Ext Rel Tab PO 07/23/24 08:59 150 mg QAM MATT Administration Miscellaneous 15 - 30 gm 05/24/24 03:30 05/28/24 11:52 Carbohydrates For Hypoglycemia PO 07/23/24 03:29 15 gm UD PRN Administration Hypoglycemia Treatment Nystatin 1 appln 05/24/24 01:00 06/28/24 08:28 Nystatin Powder 15gm Btl EXT 07/23/24 00:59 1 appln BID MATT Administration Ondansetron HCl 4 mg 05/29/24 08:28 06/28/24 06:15 Ondansetron Inj 2 Mg/Ml 2 Ml Vial IV 07/23/24 08:27 4 mg Q6H PRN Administration Nausea And Vomiting Pantoprazole Sodium 40 mg 05/30/24 21:00 06/28/24 08:28 Pantoprazole 40 Mg Tab PO 07/23/24 20:59 40 mg BID MATT Administration Polyethylene Glycol 17 gm 05/30/24 21:00 06/28/24 08:28 Polyethylene (Miralax) 17 Gm Pack PO 07/23/24 20:59 17 gm BID MATT Administration Pregabalin 75 mg 05/29/24 21:00 06/28/24 12:58 Pregabalin 75 Mg Cap PO 07/23/24 20:59 75 mg TID MATT Administration Senna/Docusate Sodium 2 tab 05/30/24 21:00 06/28/24 08:28 Docusate Sodium/Senna 50/8.6mg Tab PO 07/23/24 20:59 2 tab BID MATT Administration Spironolactone 25 mg 05/28/24 09:00 06/28/24 09:24 Spironolactone 25 Mg Tab PO 07/23/24 08:59 25 mg DAILY MATT Administration Sucralfate 1 gm 06/01/24 17:00 06/28/24 16:22 Sucralfate 1 Gm/10 Ml Udc PO 07/23/24 16:59 1 gm QID MATT Administration Torsemide 20 mg 06/16/24 09:00 06/28/24 16:22 Torsemide 20 Mg Tab PO 07/16/24 08:59 20 mg [id number] MATT Administration Warfarin Sodium 2 mg 06/28/24 16:00 06/28/24 16:22 Warfarin Sod 2 Mg Tab PO 07/28/24 15:59 2 mg DAILY@1600 MATT Administration Zinc Acetate/Diphenhydramine 1 appln 05/24/24 03:17 06/28/24 08:27 Diphenhydramine 2%/Zinc 0.1% Cream 28.4gm Tube EXT 07/23/24 03:16 1 appln QID PRN Administration itchy skin
[2024-06-29 07:14] LABS: INR 2.6 (0.9-1.1); Prothrombin Time 25.6 Seconds (9.0-12.0)
--- NOTE | 2024-06-29 16:55 | Hospitalist Progress Note ---
Date of Service June 29, 2024 Assessment & Plan (1) Atrial fibrillation with RVR: Plan: Mr. 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 Patient's course prolonged given APS involvement and placement issues. Case management following. Patient was compliant with medications; however, as of 06/21, patient has started to refuse medications as he is frustrated he cannot go back home immediately. Encouraged and counseled patient that if he does not take his meds he will further prevent discharge and opportunity to display ability to care for self. Patient refused to actively participate in exam and acknowledged that his refusal will prolong his hospitalization; however, after discussion 06/22 patient started to resume medications and encouragement offered. On 06/27, Discussion with Dr. Mckenzie, patient's OP internet designer, had 06/27. He reports that multiple internet designer have recommended BKA; however, he referred patient to [facility] where patient underwent multiple debridement. The recommendation was that patient should remain nonweightbearing, and utilize leg simply for transfers. Patient has limited reserve for healing, which is noted based upon changes in wound from admission. On 06/28, Patient expressed valid concerns over communication from [facility] with himself about the involvement of the agency. Requested conversation as patient states that he has all the resources he needs and refuses to go to rehab or facility. Patient notes that he has an accessible home and works to keep up with his podiatry/wound care appointments. After a month of hospitalization, multiple efforts for rehab placement, and signs of wound healing, it is felt that patient should be given the opportunity to return home once able to transfer and pivot. Patient reports extreme distress with the though of rehab/permanent placement. Patient expresses capacity and understanding of his situation. #Cellulitis of left lower leg: #Possible infected chronic right foot wound/ulcer right foot cellulitis, right lower extremity cellulitis Blood cultures negative Wound culture neg Completed 7 days of cefepime and meropenem Seen by Podiatry 06/03/2024; right lower extremity nonsalvageable, recommend discussion regarding amputation, patient not ready at this point, prefers to discuss with his usual outpatient internet designer Dr. Mckenzie Seen by ID on 06/03/2024- didn't recommend prolong course of antibiotics. continue torsemide and Spironolactone for leg edema consulted wound care for photos and eval of wounds -recommendations reviewed Discussed with Dr. Mckenzie--recommendation previously was nonweightbearing outside of transfer, as concern for even ability to heal and care for self without RLE, as BKA would remove final opportunity for independence #Atrial fibrillation with RVR: s/p diltiazem drip at arrival. c/w toprol xl 150 mg daily. Rate controlled for now. c/w Coumadin w/ pt/inr monitoring. Coumadin clinic on DC. patient consistent with medications at this time and more cooperative Continue to monitor on tele #Acute on Chronic heart failure with reduced EF *stable noted on echo, EF slightly decreased to 30-35%. s/p iv diuresis, now on home dose of torsemide 20 mg bid and Aldactone 25 mg daily. continue. Patient aggressive about FR hence no FR, c/w low Na diet. -continue Aldactone, lisinopril continue home medications #Ileus: -resolved #Adult failure to thrive: -patient has had numerous hospitalizations in regards to failure to thrive at home -appears disheveled, found by EMS with pet at door, poor living conditions -high concern given psychiatric concerns and overall condition that patient will be unable to safely return home -previous attending discussed with rn case management, filled out [facility] requested forms in regards to disposition Patient cannot be discharged without arrangements confirmed via [facility]PS Requesting reeval from [facility] Other chronic medical conditions: Continue with/resume home meds as and when able. T2DM: Sliding scale insulin. PVD: Status post left BKA amputation. Continue with home aspirin and Lipitor. Morbid obesity: Likely contributed to PVD and recurrent cellulitis. Counseling done. CKD: CKD stage III, stable. NINA on CPAP: Continue CPAP at bedtime. Cardiac defibrillator in situ: Noted Major depression disorder: Continue with duloxetine Lymphedema: Likely contributing to cellulitis. Follow-up with lymphedema clinic as an outpatient. Chronic pain syndrome: Checked PDMP, continue on home oxycodone. Dilaudid added for breakthrough pain. C/w duloxetine and pregabalin. DVT px: Coumadin Disposition: pending. working to coordinate home services Admission and Anticipated Discharge Date Admission Date: May 24, 2024 Subjective NAEO reports eagerness to transition to chair today and start working to get home Patient states he feels he would have no reason to live any longer if he were to go to a home or to any facility--he reports he has a friend who is able to aid with wound care and that he has all the accessibility resources at home Physical Exam Constitutional: WD/WN, vitals as above Respiratory: normal respiratory effort, lungs clear to auscultation Cardiovascular: irregularly irregualr Results & Data Results & Data Vital Signs (Past 12 Hours) Vital Signs Temp Pulse Pulse Resp BP Pulse Ox O2 Del Method 06/29/24 16:32 36.7 C 72 18 129/61 90 Room Air 06/29/24 13:23 70 06/29/24 12:14 36.6 C 73 18 121/79 90 Room Air 06/29/24 07:36 Room Air 06/29/24 07:33 36.6 C 68 18 143/75 H 91 Room Air 06/29/24 05:32 79 Medications Administered Home Medications Medication Instructions Recorded Confirmed Last Taken Lantus Solostar U-100 Insulin 40 units SC BID 02/08/24 02/09/24 Unknown acetaminophen 325 mg tablet 650 mg PO QID PRN Pain 02/08/24 05/24/24 Unknown (Tylenol) aspirin 81 mg tablet,delayed 81 mg PO DAILY 02/08/24 05/24/24 05/22/24 release atorvastatin 80 mg tablet 80 mg PO DAILY 02/08/24 05/24/24 05/22/24 ergocalciferol (vitamin D2) 50,000 50,000 unit PO WK 02/08/24 05/24/24 05/17/24 unit tablet ferrous sulfate 325 mg (65 mg 325 mg PO BID 02/08/24 05/24/24 05/22/24 iron) tablet hyoscyamine sulfate 0.125 mg tablet 0.125 mg PO Q4H PRN Abdominal Pain 02/08/24 05/24/24 05/22/24 insulin aspart U-100 100 unit/mL 10 unit subcut AC 02/08/24 02/09/24 Unknown subcutaneous solution (Novolog U-100 Insulin aspart) levothyroxine 88 mcg tablet 88 mcg PO DAILY 02/08/24 05/24/24 05/22/24 metoprolol tartrate 50 mg tablet 50 mg PO BID 02/08/24 05/24/24 05/22/24 multivitamin,vn-oyqn-Jq-FA-min 1 tab PO DAILY 02/08/24 02/09/24 Unknown nystatin 1 applic EXT UD 02/08/24 05/24/24 05/22/24 omeprazole 20 mg capsule,delayed 20 mg PO DAILY 02/08/24 05/24/24 05/22/24 release oxycodone 10 mg tablet 10 mg PO Q4H PRN Pain, Severe 02/08/24 05/24/24 05/22/24 potassium chloride 20 mEq 20 meq PO BID 02/08/24 05/24/24 05/22/24 tablet,extended release(part/cryst) pregabalin 50 mg capsule 50 mg PO BID 02/08/24 05/24/24 05/22/24 sitagliptin phosphate 50 mg tablet 50 mg PO DAILY 02/08/24 05/24/24 05/22/24 (Januvia) spironolactone 25 mg tablet 25 mg PO DAILY 02/09/24 05/24/24 05/22/24 triamcinolone acetonide 0.1 % 1 applic topical TID 02/09/24 05/24/24 Unknown lotion warfarin 3 mg tablet 3 mg PO DAILY 02/09/24 05/24/24 05/22/24 ammonium lactate 12 % lotion 1 applic topical DAILY 05/24/24 05/24/24 05/22/24 betamethasone dipropionate 0.05 % 1 applic topical BID 05/24/24 05/24/24 Unknown topical cream loratadine 10 mg tablet 10 mg PO DAILY 05/24/24 05/24/24 05/22/24 torsemide 20 mg tablet 20 mg PO BID 05/24/24 05/24/24 05/22/24 Active Medications Generic Name Dose Route Start Last Admin Trade Name Freq PRN Reason Stop Dose Admin Acetaminophen 500 mg 05/24/24 00:57 06/23/24 08:50 Acetaminophen 500 Mg Tab PO 07/23/24 00:56 500 mg Q6H PRN Administration fever/pain Aspirin 81 mg 05/24/24 09:00 06/29/24 08:27 Aspirin 81 Mg Ectab PO 07/23/24 08:59 81 mg DAILY MATT Administration Betamethasone Valerate 1 appln 05/24/24 09:00 06/29/24 13:04 Betamethasone Maryann 0.1% Cr 15 Gm TOP 07/23/24 08:59 1 appln TID MATT Administration Dicyclomine HCl 10 mg 06/24/24 10:00 06/29/24 16:39 Dicyclomine Hcl 10 Mg Cap PO 07/24/24 09:59 10 mg QID MATT Administration Duloxetine HCl 60 mg 05/28/24 09:00 06/29/24 08:27 Duloxetine Hcl 60 Mg Cap PO 07/23/24 08:59 60 mg QAM MATT Administration Famotidine 10 mg 05/25/24 11:55 06/29/24 08:24 Famotidine 10 Mg Tablet PO 07/23/24 11:54 10 mg BID PRN Administration gerd Hydromorphone HCl 2 mg 06/23/24 16:14 06/29/24 13:22 Hydromorphone Hcl 2 Mg Tab PO 07/06/24 04:01 2 mg Q4H PRN Administration Severe Pain (Scale 7, 8, 9,10) Insulin Aspart 0 units 05/24/24 07:30 06/29/24 13:04 Insulin Aspart Per Unit Charge SC 07/23/24 07:29 15 units ACHS MATT Administration Lactobacillus Acidophilus 1,250 mg 06/02/24 09:00 06/29/24 08:23 Advanced Probiotic 625 Mg Capsule PO 07/23/24 08:59 1,250 mg DAILY MATT Administration Levothyroxine Sodium 88 mcg 05/24/24 06:30 06/29/24 05:10 Levothyroxine Sodium 88 Mcg Tablet PO 07/23/24 06:29 88 mcg DAILYBB MATT Administration Lisinopril 5 mg 05/28/24 09:00 06/29/24 08:27 Lisinopril 5 Mg Tab PO 07/23/24 08:59 5 mg QAM MATT Administration Metoprolol Succinate 150 mg 05/26/24 09:00 06/29/24 08:26 Metoprolol Succ 50mg Ext Rel Tab PO 07/23/24 08:59 150 mg QAM MATT Administration Miscellaneous 15 - 30 gm 05/24/24 03:30 05/28/24 11:52 Carbohydrates For Hypoglycemia PO 07/23/24 03:29 15 gm UD PRN Administration Hypoglycemia Treatment Nystatin 1 appln 05/24/24 01:00 06/29/24 08:23 Nystatin Powder 15gm Btl EXT 07/23/24 00:59 1 appln BID MATT Administration Ondansetron HCl 4 mg 05/29/24 08:28 06/29/24 13:08 Ondansetron Inj 2 Mg/Ml 2 Ml Vial IV 07/23/24 08:27 4 mg Q6H PRN Administration Nausea And Vomiting Pantoprazole Sodium 40 mg 05/30/24 21:00 06/29/24 08:26 Pantoprazole 40 Mg Tab PO 07/23/24 20:59 40 mg BID MATT Administration Polyethylene Glycol 17 gm 05/30/24 21:00 06/29/24 06:55 Polyethylene (Miralax) 17 Gm Pack PO 07/23/24 20:59 Not Given BID MATT Pregabalin 75 mg 05/29/24 21:00 06/29/24 13:04 Pregabalin 75 Mg Cap PO 07/23/24 20:59 75 mg TID MATT Administration Senna/Docusate Sodium 2 tab 05/30/24 21:00 06/29/24 06:55 Docusate Sodium/Senna 50/8.6mg Tab PO 07/23/24 20:59 Not Given BID MATT Spironolactone 25 mg 05/28/24 09:00 06/29/24 08:24 Spironolactone 25 Mg Tab PO 07/23/24 08:59 25 mg DAILY MATT Administration Sucralfate 1 gm 06/01/24 17:00 06/29/24 16:38 Sucralfate 1 Gm/10 Ml Udc PO 07/23/24 16:59 1 gm QID MATT Administration Torsemide 20 mg 06/16/24 09:00 06/29/24 16:39 Torsemide 20 Mg Tab PO 07/16/24 08:59 20 mg [id number] MATT Administration Warfarin Sodium 2 mg 06/28/24 16:00 06/29/24 16:39 Warfarin Sod 2 Mg Tab PO 07/28/24 15:59 2 mg DAILY@1600 MATT Administration Zinc Acetate/Diphenhydramine 1 appln 05/24/24 03:17 06/28/24 08:27 Diphenhydramine 2%/Zinc 0.1% Cream 28.4gm Tube EXT 07/23/24 03:16 1 appln QID PRN Administration itchy skin
[2024-06-29] MEDS: LANTUS PER UNIT CHARGE SC SCH (21:29)
--- NOTE | 2024-06-30 17:19 | Hospitalist Progress Note ---
Date of Service June 30, 2024 Assessment & Plan (1) Atrial fibrillation with RVR: Plan: Mr. 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 Patient's course prolonged given APS involvement and placement issues. Case management following. Patient was compliant with medications; however, as of 06/21, patient has started to refuse medications as he is frustrated he cannot go back home immediately. Encouraged and counseled patient that if he does not take his meds he will further prevent discharge and opportunity to display ability to care for self. Patient refused to actively participate in exam and acknowledged that his refusal will prolong his hospitalization; however, after discussion 06/22 patient started to resume medications and encouragement offered. On 06/27, Discussion with Dr. 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 He reports that multiple machining department supervisor have recommended BKA; however, he referred patient to [facility] where patient underwent multiple debridement. The recommendation was that patient should remain nonweightbearing, and utilize leg simply for transfers. Patient has limited reserve for healing, which is noted based upon changes in wound from admission. On 06/28, Patient expressed valid concerns over communication from [facility] with himself about the involvement of the agency. Requested conversation as patient states that he has all the resources he needs and refuses to go to rehab or facility. Patient notes that he has an accessible home and works to keep up with his podiatry/wound care appointments. After a month of hospitalization, multiple efforts for rehab placement, and signs of wound healing, it is felt that patient should be given the opportunity to return home once able to transfer and pivot. Patient reports extreme distress with the though of rehab/permanent placement. Patient expresses capacity and understanding of his situation. Form submitted to work to get resources for home and an opportunity for patient once more. Discussed at length risks if patient does not take care of self and wounds, patient verbalized understanding #Cellulitis of left lower leg: #Possible infected chronic right foot wound/ulcer right foot cellulitis, right lower extremity cellulitis Blood cultures negative Wound culture neg Completed 7 days of cefepime and meropenem Seen by Podiatry 06/03/2024; right lower extremity nonsalvageable, recommend discussion regarding amputation, patient not ready at this point, prefers to discuss with his usual outpatient machining department supervisor Dr. Mckenzie Seen by ID on 06/03/2024- didn't recommend prolong course of antibiotics. continue torsemide and Spironolactone for leg edema consulted wound care for photos and eval of wounds -recommendations reviewed Discussed with Dr. Mckenzie--recommendation previously was nonweightbearing outside of transfer, as concern for even ability to heal and care for self without RLE, as BKA would remove final opportunity for independence #Atrial fibrillation with RVR: s/p diltiazem drip at arrival. c/w toprol xl 150 mg daily. Rate controlled for now. c/w Coumadin w/ pt/inr monitoring. Coumadin clinic on DC. patient consistent with medications at this time and more cooperative Continue to monitor on tele #Acute on Chronic heart failure with reduced EF *stable noted on echo, EF slightly decreased to 30-35%. s/p iv diuresis, now on home dose of torsemide 20 mg bid and Aldactone 25 mg daily. continue. Patient aggressive about FR hence no FR, c/w low Na diet. -continue Aldactone, lisinopril continue home medications #Ileus: -resolved #Adult failure to thrive: -patient has had numerous hospitalizations in regards to failure to thrive at home -appears disheveled, found by EMS with pet at door, poor living conditions -high concern given psychiatric concerns and overall condition that patient will be unable to safely return home -previous attending discussed with bilingual patient support caseworker, filled out APS requested forms in regards to disposition Patient cannot be discharged without arrangements confirmed via APS Requesting reeval from [facility] Other chronic medical conditions: Continue with/resume home meds as and when able. T2DM: Sliding scale insulin. PVD: Status post left BKA amputation. Continue with home aspirin and Lipitor. Morbid obesity: Likely contributed to PVD and recurrent cellulitis. Counseling done. CKD: CKD stage III, stable. NINA on CPAP: Continue CPAP at bedtime. Cardiac defibrillator in situ: Noted Major depression disorder: Continue with duloxetine Lymphedema: Likely contributing to cellulitis. Follow-up with lymphedema clinic as an outpatient. Chronic pain syndrome: Checked PDMP, continue on home oxycodone. Dilaudid added for breakthrough pain. C/w duloxetine and pregabalin. DVT px: Coumadin Disposition: pending. working to coordinate home services Admission and Anticipated Discharge Date Admission Date: May 24, 2024 Subjective NAEO No new concerns or complaints overnight Physical Exam Constitutional: WD/WN, vitals as above Respiratory: normal respiratory effort, lungs clear to auscultation Cardiovascular: irregularly irregular Results & Data Results & Data Vital Signs (Past 12 Hours) Vital Signs Temp Pulse Pulse Resp BP Pulse Ox O2 Del Method 06/30/24 15:42 37.0 C 72 18 138/71 94 Room Air 06/30/24 15:13 68 06/30/24 11:47 36.8 C 73 18 149/76 H 95 Room Air 06/30/24 08:22 Room Air 06/30/24 08:05 36.6 C 70 18 109/70 94 Room Air 06/30/24 07:18 74 06/30/24 05:24 36.6 C 72 16 122/61 93 Room Air Medications Administered Home Medications Medication Instructions Recorded Confirmed Last Taken Lantus Solostar U-100 Insulin 40 units SC BID 02/08/24 02/09/24 Unknown acetaminophen 325 mg tablet 650 mg PO QID PRN Pain 02/08/24 05/24/24 Unknown (Tylenol) aspirin 81 mg tablet,delayed 81 mg PO DAILY 02/08/24 05/24/24 05/22/24 release atorvastatin 80 mg tablet 80 mg PO DAILY 02/08/24 05/24/24 05/22/24 ergocalciferol (vitamin D2) 50,000 50,000 unit PO WK 02/08/24 05/24/24 05/17/24 unit tablet ferrous sulfate 325 mg (65 mg 325 mg PO BID 02/08/24 05/24/24 05/22/24 iron) tablet hyoscyamine sulfate 0.125 mg tablet 0.125 mg PO Q4H PRN Abdominal Pain 1005/24/24 05/22/24 insulin aspart U-100 100 unit/mL 10 unit subcut AC 02/08/24 02/09/24 Unknown subcutaneous solution (Novolog U-100 Insulin aspart) levothyroxine 88 mcg tablet 88 mcg PO DAILY 02/08/24 05/24/24 05/22/24 metoprolol tartrate 50 mg tablet 50 mg PO BID 02/08/24 05/24/24 05/22/24 multivitamin,[id number]-min 1 tab PO DAILY 02/08/24 02/09/24 Unknown nystatin 1 applic EXT UD 02/08/24 05/24/24 05/22/24 omeprazole 20 mg capsule,delayed 20 mg PO DAILY 02/08/24 05/24/24 05/22/24 release oxycodone 10 mg tablet 10 mg PO Q4H PRN Pain, Severe 02/08/24 05/24/24 05/22/24 potassium chloride 20 mEq 20 meq PO BID 02/08/24 05/24/24 05/22/24 tablet,extended release(part/cryst) pregabalin 50 mg capsule 50 mg PO BID 02/08/24 05/24/24 05/22/24 sitagliptin phosphate 50 mg tablet 50 mg PO DAILY 02/08/24 05/24/24 05/22/24 (Januvia) spironolactone 25 mg tablet 25 mg PO DAILY 02/09/24 05/24/24 05/22/24 triamcinolone acetonide 0.1 % 1 applic topical TID 02/09/24 05/24/24 Unknown lotion warfarin 3 mg tablet 3 mg PO DAILY 02/09/24 05/24/24 05/22/24 ammonium lactate 12 % lotion 1 applic topical DAILY 05/24/24 05/24/24 05/22/24 betamethasone dipropionate 0.05 % 1 applic topical BID 05/24/24 05/24/24 Unknown topical cream loratadine 10 mg tablet 10 mg PO DAILY 05/24/24 05/24/24 05/22/24 torsemide 20 mg tablet 20 mg PO BID 05/24/24 05/24/24 05/22/24 Active Medications Generic Name Dose Route Start Last Admin Trade Name Freq PRN Reason Stop Dose Admin Acetaminophen 500 mg 05/24/24 00:57 06/23/24 08:50 Acetaminophen 500 Mg Tab PO 07/23/24 00:56 500 mg Q6H PRN Administration fever/pain Aspirin 81 mg 05/24/24 09:00 06/30/24 08:19 Aspirin 81 Mg Ectab PO 07/23/24 08:59 81 mg DAILY MATT Administration Betamethasone Valerate 1 appln 05/24/24 09:00 06/30/24 13:04 Betamethasone Maryann 0.1% Cr 15 Gm TOP 07/23/24 08:59 1 appln TID MATT Administration Dicyclomine HCl 10 mg 06/24/24 10:00 06/30/24 16:03 Dicyclomine Hcl 10 Mg Cap PO 07/24/24 09:59 10 mg QID MATT Administration Duloxetine HCl 60 mg 05/28/24 09:00 06/30/24 08:19 Duloxetine Hcl 60 Mg Cap PO 07/23/24 08:59 60 mg QAM MATT Administration Famotidine 10 mg 05/25/24 11:55 06/29/24 08:24 Famotidine 10 Mg Tablet PO 07/23/24 11:54 10 mg BID PRN Administration gerd Hydromorphone HCl 2 mg 06/23/24 16:14 06/30/24 12:03 Hydromorphone Hcl 2 Mg Tab PO 07/06/24 04:01 2 mg Q4H PRN Administration Severe Pain (Scale 7, 8, 9,10) Insulin Aspart 0 units 05/24/24 07:30 06/30/24 12:23 Insulin Aspart Per Unit Charge SC 07/23/24 07:29 17 units ACHS MATT Administration Insulin Glargine 12 units 06/29/24 21:00 06/29/24 21:29 Lantus Per Unit Charge SC 07/18/24 20:59 12 units HS MATT Administration Lactobacillus Acidophilus 1,250 mg 06/02/24 09:00 06/30/24 08:18 Advanced Probiotic 625 Mg Capsule PO 07/23/24 08:59 1,250 mg DAILY MATT Administration Levothyroxine Sodium 88 mcg 05/24/24 06:30 06/30/24 06:31 Levothyroxine Sodium 88 Mcg Tablet PO 07/23/24 06:29 88 mcg DAILYBB MATT Administration Lisinopril 5 mg 05/28/24 09:00 06/30/24 08:19 Lisinopril 5 Mg Tab PO 07/23/24 08:59 5 mg QAM MATT Administration Metoprolol Succinate 150 mg 05/26/24 09:00 06/30/24 08:19 Metoprolol Succ 50mg Ext Rel Tab PO 07/23/24 08:59 150 mg QAM MATT Administration Miscellaneous 15 - 30 gm 05/24/24 03:30 05/28/24 11:52 Carbohydrates For Hypoglycemia PO 07/23/24 03:29 15 gm UD PRN Administration Hypoglycemia Treatment Nystatin 1 appln 05/24/24 01:00 06/30/24 08:17 Nystatin Powder 15gm Btl EXT 07/23/24 00:59 1 appln BID MATT Administration Ondansetron HCl 4 mg 05/29/24 08:28 06/30/24 03:43 Ondansetron Inj 2 Mg/Ml 2 Ml Vial IV 07/23/24 08:27 4 mg Q6H PRN Administration Nausea And Vomiting Pantoprazole Sodium 40 mg 05/30/24 21:00 06/30/24 08:19 Pantoprazole 40 Mg Tab PO 07/23/24 20:59 40 mg BID MATT Administration Polyethylene Glycol 17 gm 05/30/24 21:00 06/30/24 08:17 Polyethylene (Miralax) 17 Gm Pack PO 07/23/24 20:59 17 gm BID MATT Administration Pregabalin 75 mg 05/29/24 21:00 06/30/24 13:04 Pregabalin 75 Mg Cap PO 07/23/24 20:59 75 mg TID MATT Administration Senna/Docusate Sodium 2 tab 05/30/24 21:00 06/30/24 08:17 Docusate Sodium/Senna 50/8.6mg Tab PO 07/23/24 20:59 2 tab BID MATT Administration Spironolactone 25 mg 05/28/24 09:00 06/30/24 08:18 Spironolactone 25 Mg Tab PO 07/23/24 08:59 25 mg DAILY MATT Administration Sucralfate 1 gm 06/01/24 17:00 06/30/24 16:03 Sucralfate 1 Gm/10 Ml Udc PO 07/23/24 16:59 1 gm QID MATT Administration Torsemide 20 mg 06/16/24 09:00 06/30/24 16:03 Torsemide 20 Mg Tab PO 07/16/24 08:59 20 mg [id number] MATT Administration Warfarin Sodium 2 mg 06/28/24 16:00 06/30/24 16:03 Warfarin Sod 2 Mg Tab PO 07/28/24 15:59 2 mg DAILY@1600 MATT Administration Zinc Acetate/Diphenhydramine 1 appln 05/24/24 03:17 06/28/24 08:27 Diphenhydramine 2%/Zinc 0.1% Cream 28.4gm Tube EXT 07/23/24 03:16 1 appln QID PRN Administration itchy skin
[2024-07-01 06:21] LABS: Hematocrit (blood only) 38.7 % (42.0-52.0); Hemoglobin 12.3 g/dl (14.0-18.0); Mean Corpuscular Hemoglobin 27.4 pg (25.0-34.0); Mean Corpuscular Hgb Conc 31.8 g/dL (32.0-36.0); Mean Corpuscular Volume 86.2 fL (80.0-100.0); Platelet Count 259 K/uL (130-400); RDW Coefficient of Variation 16.9 % (11.5-14.5); Red Blood Count 4.49 M/uL (4.70-6.10); White Blood Count 5.78 K/ul (4.8-10.8)
[2024-07-01 06:34] LABS: BUN Creatinine Ratio 23.1 (10-20); Potassium 3.8 mmol/L (3.5-5.1)
[2024-07-01 07:04] LABS: INR 2.1 (0.9-1.1); Prothrombin Time 21.6 Seconds (9.0-12.0)
--- NOTE | 2024-07-01 08:44 | Pharmacy Report ---
Pharmacy Glycemic Short Note 2 - Date of Service July 01, 2024 - Glycemic Short BSG Results (Last 24 hours): 06/30/24 06/30/24 06/30/24 11:54 17:01 20:18 Glucose POC Glucose 174 H 116 H 279 H 07/01/24 07/01/24 05:37 08:10 Glucose 170 H POC Glucose 174 H OUTPATIENT ANTIDIABETIC REGIMEN: * Novolog pump * pre-meal target range: 90-150 mg/dL * post-meal target range: <220 mg/dL * Carb ratio: 1:3 g/unit * Correction factor: 1:30 unit/mg/dL * Basal rate: 7 units/hr (0106-2745), 6 units/hr (6106-8851), 7 units/hr (5453-5165) - 155 units/day HbA1c: 7.5% (02/09/24), 8.1% (04/2024 per H&P) ASSESSMENT: 07/01/24: * Blood sugars remain reasonably well-controlled with occasional hyperglycemia * Patient has a history of labile blood sugars, okay with current trend (do not feel it is necessary to tighten regimen and increase risk of hypoglycemia) * No changes anticipated today (day #3 of increased basal dose) 06/28: * Blood sugars adequately controlled, some outliers, but no pattern to hyperglycemic events (about one BSG per day above goal, random times). No hypoglycemia. * Continue current insulin regimen. * CM:Referrals out to multiple facilities though no bed offering as of yet. Placement complicated by need for bariatric bed and likely transition to terminal gauger supervisor. 06/24: * Ben received 44 units of insulin yesterday, only 8 of which were basal. BSGs were: [phone] mg/dL. * Fasting BSG this AM continues to trend up, 207 mg/dL. Still believe we are seeing the effects of patient refusing basal a few days ago as he was relatively stable on 8 units of basal at bedtime. However, will opt to slightly increase basal this evening, even if only for a one time dose. Reassess tomorrow. * No changes in Novolog parameters. Eating better. 06/23: * After refusing insulin and BSG checks for ~24-36 hours, Mr. Mckeon did allow RN to give some insulin yesterday. Received 8 units basal + 16 units bolus. BSGs were 196-320-254 mg/dL. * Fasting BSG was 185 mg/dL this AM which is likely elevated secondary to basal deficiency from refusing insulin. Will not make any changes. * No changes to Novolog as patients BSGs were controlled when insulin was allowed to be given. PLAN FOR INPATIENT GLYCEMIC CONTROL: * Hold insulin pump * Basal insulin * Lantus 12 units SC HS * Bolus insulin * NovoLog per scale ACHS or Q6hrs while NPO * Goal Range: Low 120 mg/dL - High 150 mg/dL * Correction Factor: 30 mg/dL/unit * Nutritional / Prandial insulin per carb ratio of 1 unit per 6 grams CHO consumed
[2024-07-01 11:23] VITALS: RESP 18
[2024-07-01 15:55] VITALS: PULSE 67; TEMP 98.2; O2SAT 93
--- NOTE | 2024-07-01 16:15 | Discharge Summary ---
Date of Service July 01, 2024 Admission HPI Per Admitting Provider History obtained from patient and records. 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 Last [facility] confinement January 2024 for RLE osteomyelitis status post surgery. Recent confinement 2 weeks ago at [place], [place] for sepsis secondary to worsening RLE osteomyelitis wound infection status post surgery. Patient transferred from [facility] ER. Polymicrobial growth on CS. Patient underwent wound debridement, right foot abscess drainage, 3 compartment fasciotomy. Patient told he did not need antibiotics when he was discharged home last week. Patient noted worsening redness on left leg amputation stump over the last month. Pain going to the left buttock as per patient. Possible itchy rash as per patient. Denies fever, chills. Last night, patient got tangled up in blankets causing him to fall out of his wheelchair. Denies head trauma, LOC, syncope, chest pain or unusual SOB. EMS called to patient's home. Patient noted to be in rapid A-fib upon arrival at the ER. IV Cardizem infusion initiated at the ER. Vancomycin and ceftriaxone administered at the ER. MEDICAL HISTORY: As above. SURGICAL HISTORY: Left shoulder surgery, ICD, tonsillectomy/adenoidectomy, left BKA surgery, vascular device placement, right foot wound debridement, vascular procedures FAMILY HISTORY: There is a family history of heart disease and hypertension. PERSONAL SOCIAL HISTORY: Nonsmoker. No chronic intake of alcoholic beverages. 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 Admission Exam Per Admitting Provider GENERAL: uncomfortable, morbidly obese, unkempt, respiratory distress SKIN: Pallor, warm HEENT: [place] palpebral conjunctivae, no ptosis, dry buccal mucosa NECK : Supple, short neck, no tenderness CHEST : Decreased breath sounds, no tenderness HEART : Irregular, diminished S1-S2 ABDOMEN: distention, no tenderness EXTREMITIES : Dressing over RLE, left amputation stump induration with tenderness with superficial maculopapular lesions NEUROLOGIC : Coherent, no facial asymmetry, no other gross focality Principal Diagnosis #Cellulitis of left lower leg #Possible infected chronic right foot wound/ulcer #Acute on Chronic heart failure with reduced EF #Atrial fibrillation with RVR Discharge Exam General- alert and awake, not in distress, speaks in sentences with no effort or accessory muscle use Eyes- anicteric Neck- no JVD Lungs- clear breath sounds bilaterally Heart- normal rate, regular rhythm; no murmurs Abdomen- normal bowel sounds, nondistended, soft, nontender Extremities-grade 2 lower ext edema R foot: superficial wounds, no s/s infection. LLE BKA noted. Neuro- no gross focal neurologic deficits Skin- warm & dry Discharge Data Allergies Allergy/AdvReac Type Severity Reaction Status Date / Time benzonatate AdvReac Intermediate choking, Verified 01/07/24 13:17 gagging Consultations 05/23/24 23:26 ED Decision to Admit Stat 06/01/24 18:33 Consult Gastroenterology Routine 06/02/24 14:00 Consult Infectious Diseases Routine 06/02/24 14:04 Consult Podiatry Routine 06/22/24 12:39 Consult Psychiatry Routine Ordered Studies 05/23/24 19:12 CT cervical spine wo con Stat CT head/brain wo con Stat 05/24/24 00:49 CT femur LT wo con Stat 05/26/24 22:35 CT Abd and Pelvis [CT abd pelvis wo con] Stat 05/30/24 13:18 CT abdomen pelvis wo/w con Urgent Hospital Course (1) Atrial fibrillation with RVR: Per prior attending w/ Addendum: Mr. 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 Patient's course prolonged given APS involvement and placement issues. Case management following. Patient was compliant with medications; however, as of 06/21, patient has started to refuse medications as he is frustrated he cannot go back home immediately. Encouraged and counseled patient that if he does not take his meds he will further prevent discharge and opportunity to display ability to care for self. Patient refused to actively participate in exam and acknowledged that his refus al will prolong his hospitalization; however, after discussion 06/22 patient started to resume medications and encouragement offered. On 06/27, Discussion with Dr. Mckenzie, patient's OP event decorator, had 06/27. He reports that multiple event decorator have recommended BKA; however, he referred patient to [facility] where patient underwent multiple debridement. The recommendation was that patient should remain nonweightbearing, and utilize leg simply for transfers. Patient has limited reserve for healing, which is noted based upon changes in wound from admission. On 06/28, Patient expressed valid concerns over communication from [facility] with himself about the involvement of the agency. Requested conversation as patient states that he has all the resources he needs and refuses to go to rehab or f acility. Patient notes that he has an accessible home and works to keep up with his podiatry/wound care appointments. After a month of hospitalization, multiple efforts for rehab placement, and signs of wound healing, it is felt that patient should be given the opportunity to return home once able to transfer and pivot. Patient reports extreme distress with the though of rehab/permanent placement. Patient expresses capacity and understanding of his situation. Form submitted to work to get resources for home and an opportunity for patient once more. Discussed at length risks if patient does not take care of self and wounds, patient verbalized understanding #Cellulitis of left lower leg: #Possible infected chronic right foot wound/ulcer right foot cellulitis, right lower extremity cellulitis Blood cultures negative Wound culture neg Completed 7 days of cefepime and meropenem Seen by Podiatry 06/03/2024; right lower extremity nonsalvageable, recommend discussion regarding amputation, patient not ready at this point, prefers to discuss with his usual outpatient event decorator Dr. Mckenzie Seen by ID on 06/03/2024- didn't recommend prolong course of antibiotics. continue torsemide and Spironolactone for leg edema consulted wound care for photos and eval of wounds -recommendations reviewed Discussed with Dr. Mckenzie--recommendation previously was nonweightbearing outside of transfer, as concern for even ability to heal and care for self without RLE, as BKA would remove final opportunity for independence #Atrial fibrillation with RVR: s/p diltiazem drip at arrival. c/w toprol xl 150 mg daily. Rate controlled for now. c/w Coumadin w/ pt/inr monitoring. Coumadin clinic on DC. patient consistent with medications at this time and more cooperative Continue to monitor on tele #Acute on Chronic heart failure with reduced EF *stable noted on echo, EF slightly decreased to 30-35%. s/p iv diuresis, now on home dose of torsemide 20 mg bid and Aldactone 25 mg daily. continue. Patient aggressive about FR hence no FR, c/w low Na diet. -continue Aldactone, lisinopril continue home medications #Ileus: -resolved #Adult failure to thrive: -patient has had numerous hospitalizations in regards to failure to thrive at home -appears disheveled, found by EMS with pet at door, poor living conditions -high concern given psychiatric concerns and overall condition that patient will be unable to safely return home -previous attending discussed with case worker, filled out APS requested forms in regards to disposition Patient cannot be discharged without arrangements confirmed via APS Requesting reeval from [facility] Other chronic medical conditions: Continue with/resume home meds as and when able. T2DM: Sliding scale insulin. PVD: Status post left BKA amputation. Continue with home aspirin and Lipitor. Morbid obesity: Likely contributed to PVD and recurrent cellulitis. Counseling done. CKD: CKD stage III, stable. NINA on CPAP: Continue CPAP at bedtime. Cardiac defibrillator in situ: Noted Major depression disorder: Continue with duloxetine Lymphedema: Likely contributing to cellulitis. Follow-up with lymphedema clinic as an outpatient. Chronic pain syndrome: Checked PDMP, continue on home oxycodone. Dilaudid added for breakthrough pain. C/w duloxetine and pregabalin. DVT px: Coumadin Disposition: pending. working to coordinate home services Addendum 07/01/2024: Patient was seen and examined at bedside, he is hemodynamically stable, reports no new complaint. Discussed with case worker, [facility] cleared him for home/closed his case. Case management working for transport for discharge to home with home health. Patient is being discharged to home with home health with following instructions at the point of discharge: Follow-up with your primary care physician within a week time and likely you will need labs CBC/CMP/magnesium/phosphorus. Continue to follow-up with your wound care and podiatry. Maintain heart healthy diet, sodium intake less than 2 g a day, fluid restriction of 1800 mL/day. Follow-up with your cardiology in 2 to 4 weeks time upon discharge. Follow-up with your Coumadin clinic in 2 to 3 days time upon discharge, you will need repeat PT/INR and further evaluation for necessary dose adjustment of your Coumadin. Take your medications as prescribed. Please make sure that you are able to get your medications today by calling your pharmacy before you leave the hospital so that your treatment continuity is not broken. Home Health Attestation I certify that this patient is under my care and that I, or a physicians engineer third assistant working with me, had a face to-face encounter that meets the home health [id number] encounter requirements with this patient. The encounter with the patient was in whole, or in part, for the following medical condition, which is the primary reason for home health care (list medical condition): Cellulitis I certify that, based on my findings, the following services are medically necessary home health services: My clinical findings support the need for the above services because: Caregiver Instruct Med Mgmt, Safety, Disease Process, Signs to Report Home Safety Assessment Medication Compliance and Monitoring Effective of New Medications Medication Volunteer Manager Incision for Infection OT Assess ADL Status and Restore Function w ADLs Prevention of Pressure Areas PT Assessment for Endurance / Balance / Strength PT Eval for Safety and Mobility PT Eval for Safety, Gait Training, Assistive Devices PT Gait and Balance Training, Strengthening and Safety Safety Skilled Nsg Assessment Skilled Nsg Assessment Surgical Incision / Wound Skilled Nsg Instruction New Medications Skilled Nsg Assess Pt Illness, Disease and Sx Monitoring Skilled Nsg to Assess, Perform and Teach Wound Care S/S to Report to Provider Teach on Disease Management and Interventions Vital Signs Further, I certify that my clinical findings support that this patient is homebound (i.e. absences from home require considerable and taxing effort and are for medical reasons or hoahaoism services or infrequently or of short duration when for other reasons) because: Assistance of 1 Person for Ambulation/Activities Chair Bound; Requires Transfer Assist Poor Endurance; SOB Minimal Exertion Supportive Aid - Walker Supportive Aid - Wheelchair Transportation Assistance/Unable to Leave Home Unassisted Certification for Home Health Services: Based on the above findings, I certify that this patient is confined to the home and needs intermittent penitentiary care, physical therapy and/or speech therapy or continues to need occupational therapy. The patient is under my care, and I have initiated the establishment of the plan of care. This patient will be followed by a physician who will periodically review the plan of care. Total Time Total Time Spent Total Time Spent (In Minutes): 35 Discharge Plan Discharge Items Patient Disposition: Home - Home Health Services Reason For Visit: AF Discharge Diagnosis: #Cellulitis of left lower leg #Possible infected chronic right foot wound/ulcer #Acute on Chronic heart failure with reduced EF #Atrial fibrillation with RVR Activity: Resume your previous activity Non-emergency contact: Primary Care Provider Call non-emergency contact if: you have any medication questions Follow-up/Referrals: Sherry Maya DO [Primary Care Provider] - Diet: Carb Consistent or DM2 and Heart Healthy Fluids: 1800ml (7 cups) Addtl Attending Provider Instructions: Follow-up with your primary care physician within a week time and likely you will need labs CBC/CMP/magnesium/phosphorus. Continue to follow-up with your wound care and podiatry. Maintain heart healthy diet, sodium intake less than 2 g a day, fluid restriction of 1800 mL/day. Follow-up with your cardiology in 2 to 4 weeks time upon discharge. Follow-up with your Coumadin clinic in 2 to 3 days time upon discharge, you will need repeat PT/INR and further evaluation for necessary dose adjustment of your Coumadin. Take your medications as prescribed. Please make sure that you are able to get your medications today by calling your pharmacy before you leave the hospital so that your treatment continuity is not broken. Pending Studies at Discharge: No Stand-Alone Forms: [employer], Smoking Cessation Medications and DC Order Prescriptions: New dicyclomine 10 mg Capsule 10 mg PO QID PRN (Reason: abdominal pain) Qty: 60 0RF warfarin 2 mg Tablet 2 mg PO DAILY@1600 Qty: 30 0RF lisinopril 5 mg Tablet 5 mg PO QAM Qty: 30 0RF metoprolol succinate 50 mg Tablet Extended Release 24 Hr 150 mg PO QAM Qty: 90 0RF duloxetine 60 mg Capsule,Delayed Release(Dr/Ec) 60 mg PO QAM Qty: 30 0RF pregabalin [Lyrica] 75 mg Capsule 75 mg PO TID Qty: 90 0RF Continued atorvastatin 80 mg tablet 80 mg PO DAILY Hold Instructions: Resume on 03/23/24. Hold till completion of antiboitics acetaminophen [Tylenol] 325 mg Tablet 650 mg PO QID PRN (Reason: Pain) aspirin 81 mg Tablet,Delayed Release (Dr/Ec) 81 mg PO DAILY ergocalciferol (vitamin D2) 50,000 unit Tablet 50,000 unit PO WK Rx Instructions: Tuesdays levothyroxine 88 mcg Tablet 88 mcg PO DAILY ferrous sulfate 325 mg (65 mg iron) Tablet 325 mg PO BID Januvia 50 mg Tablet 50 mg PO DAILY potassium chloride 20 mEq tablet,ER particles/crystals 20 meq PO BID insulin aspart U-100 [Novolog U-100 Insulin aspart] 100 unit/mL Solution 10 unit SUBCUT AC multivitamin,[id number]-min Tablet 1 tab PO DAILY oxycodone 10 mg tablet 10 mg PO Q4H PRN (Reason: Pain, Severe) nystatin 100,000 unit 1 applic EXT UD Rx Instructions: nystatin powder to abdominal fold bid spironolactone 25 mg tablet 25 mg PO DAILY triamcinolone acetonide 0.1 % Lotion 1 applic TOPICAL TID betamethasone dipropionate 0.05 % Cream 1 applic TOPICAL BID torsemide 20 mg Tablet 20 mg PO BID Rx Instructions: 40mg AM, 20mg PM ammonium lactate 12 % Lotion 1 applic TOPICAL DAILY loratadine 10 mg Tablet 10 mg PO DAILY Changed Lantus Solostar U-100 Insulin 40 units 12 units SC BID Qty: 0 0RF omeprazole 20 mg capsule,delayed release(DR/EC) 20 mg PO BID Qty: 60 0RF Discontinued hyoscyamine sulfate 0.125 mg Tablet 0.125 mg PO Q4H PRN (Reason: Abdominal Pain) metoprolol tartrate 50 mg Tablet 50 mg PO BID pregabalin 50 mg capsule 50 mg PO BID warfarin 3 mg Tablet 3 mg PO DAILY Discharge Orders: Discharge Order (Routine); Ordered 07/01/24 Ordered By: Sebastian Wallace Admission Data Admit Date/Time: 05/24/24 00:56 Attending Provider: Sebastian Wallace Admit Provider: Bereket Medellin Primary Care Provider: Sherry Maya Other Providers: Bereket Medellin; Ninoska Ochoa; Jadiel Mckeon; Alysha Ledezma; Xi Bell; Iggy Sanchez; Estelle Irvin; Bayron Dominguez; Kirk Torres; Adolph Canales; Alberto Payne I.; Husam Perkins II; Sherry Prakash; Declan Reynoso; Ricardo Lloyd; Jerald Singh; Shubham Pacheco; Robert Calvert; Darron Lutz; Rudolph Landaverde,Rehab; Cece Masters,Rehab; [place],[facility]
[2024-07-01 16:22] VITALS: BP 126/69
== END 2024-07-01 18:03 | disposition home health service (06) | DRG 602 ==
LOC: ED 18:24 → SUATTDRO 05-24 00:56 → 2S 05-24 00:56 → 2W 05-29 22:38

== ENCOUNTER 2024-07-15 15:20 | Inpatient (IN) ==
[2024-07-15 18:25] LABS: Basophils # (auto) 0.04 K/uL (0.00-0.20); Basophils % (auto) 0.8 %; Eosinophils # (auto) 0.18 K/uL (0.00-0.50); Eosinophils % (auto) 3.4 %; Hematocrit (blood only) 37.9 % (42.0-52.0); Immature Granulocytes # (auto) 0.03 K/uL (0.01-0.20); Immature Granulocytes % (auto) 0.6 %; Lymphocytes # (auto) 0.39 K/uL (1.20-3.40); Lymphocytes % (auto) 7.4 %; Mean Corpuscular Hemoglobin 27.1 pg (25.0-34.0); Mean Corpuscular Hgb Conc 31.7 g/dL (32.0-36.0); Mean Corpuscular Volume 85.6 fL (80.0-100.0); Mean Platelet Volume 9.3 fL (9.4-12.4); Monocytes # (auto) 0.53 K/uL (0.11-0.59); Monocytes % (auto) 10.1 %; Neutrophils # (auto) 4.07 K/uL (1.40-6.50); Neutrophils % (auto) 77.7 %; Platelet Count 303 K/uL (130-400); RDW Coefficient of Variation 16.4 % (11.5-14.5); RDW Standard Deviation 51.4 fL (36.4-46.3); Red Blood Count 4.43 M/uL (4.70-6.10); White Blood Count 5.24 K/ul (4.8-10.8)
[2024-07-15 18:29] LABS: INR 1.3 (0.9-1.1); Partial Thromboplastin Ratio 1.2; Partial Thromboplastin Time 31 Seconds (21-31)
[2024-07-15 18:47] LABS: BUN Creatinine Ratio 22.2 (10-20); Calcium 8.9 mg/dl (8.6-10.3); Creatinine Clr Calc Pharmacy 133.6 ml/min; Potassium 3.5 mmol/L (3.5-5.1)
[2024-07-15 19:10] LABS: Adenovirus PCR Not Detected (NotDetected); Bordetella parapertussis PCR Not Detected (NotDetected); Bordetella pertussis PCR Not Detected (NotDetected); Chlamydia pneumoniae PCR Not Detected (NotDetected); Coronavirus 229E PCR Not Detected (NotDetected); Coronavirus CoV-2 (COVID19)PCR Not Detected (NotDetected); Coronavirus HKU1 PCR Not Detected (NotDetected); Coronavirus NL63 PCR Not Detected (NotDetected); Coronavirus OC43PCR Not Detected (NotDetected); Human Metapneumovirus PCR Not Detected (NotDetected); Influenza A PCR Not Detected (NotDetected); Influenza B PCR Not Detected (NotDetected); Mycoplasma pneumoniae PCR Not Detected (NotDetected); Parainfluenza Virus 1 PCR Not Detected (NotDetected); Parainfluenza Virus 2 PCR Not Detected (NotDetected); Parainfluenza Virus 3 PCR Not Detected (NotDetected); Parainfluenza Virus 4 PCR Not Detected (NotDetected); Respiratory Syncytial VirusPCR Not Detected (NotDetected); Rhinovirus/Enterovirus PCR Not Detected (NotDetected)
--- NOTE | 2024-07-15 19:11 | CT Scan Report ---
CT head without contrast History: Headache Comparison: None Technique: Using multidetector thin collimation helical acquisition technique, axial, coronal and sagittal CT images from the skull base to the vertex were obtained without intravenous contrast. Dose reduction techniques were achieved by using automatic exposure control and/or adjustment of mA and/or kV according to patient size and/or use of iterative reconstruction technique. Findings: No intracranial hemorrhage, mass-effect, or midline shift. The ventricles are proportionate to the cerebral sulci. The simons to white matter differentiation of the cerebral hemispheres is preserved. The basal cisterns are patent. The visualized paranasal sinuses are clear. Mastoid air cells are clear. Impression: No acute intracranial pathology. Electronically signed by Nader Medrano 07-15-2024 7:10 PM
--- NOTE | 2024-07-15 19:11 | CT Scan Report ---
CT cervical spine without IV contrast History: Pain Comparison: None Technique: Using multidetector thin collimation helical acquisition technique, axial, coronal and sagittal CT images through the cervical spine were obtained without intravenous contrast. Dose reduction techniques were achieved by using automatic exposure control and/or adjustment of mA and/or kV according to patient size and/or use of iterative reconstruction technique. Findings: The cervical vertebrae are normally aligned. Straightened cervical lordosis. No acute fracture or subluxation. No prevertebral edema. Severe degenerative disc height loss at C5-6, where there is a prominent anterior bridging osteophyte. There are moderate multilevel degenerative changes elsewhere throughout the cervical spine. Mature bony degenerative fusion across the right C2-3 facet joint. No abnormality of the paraspinous soft tissues. Impression: No acute fracture or traumatic subluxation. Electronically signed by Nader Medrano 07-15-2024 7:10 PM
[2024-07-15 19:50] LABS: Appearance Urine Clear (Clear); Bacteria Urine Automated None Seen (None Seen); Bilirubin Urine Negative (Negative); Blood Urine Negative (Negative); Color Urine Yellow; Epithelial Cell Urine Auto 0-2 /hpf (0-2); Glucose Urine UA Negative (Negative); Hyaline Casts Urine Present /lpf (None Presnt); Ketones Urine 1+ (Negative); Leukocyte Esterase Urine Negative (Negative); Nitrite Urine Negative (Negative); Protein Urine 1+ (Negative); RBC Urine Automated 0-2 /hpf (0-2); Specific Gravity Urine 1.015 (1.000-1.030); Urobilinogen Urine Negative (Negative); WBC Urine Automated 0-5 /hpf (0-5); pH Urine 5.5 (4.5-7.5)
--- NOTE | 2024-07-15 19:58 | XRay Report ---
Chest radiograph, one view History: Chest pain. Wound clinic Comparison: 05/23/2024 Findings: Single AP view of the chest performed. No focal consolidation or pleural effusion. There is mild perihilar opacity. No pneumothorax. The heart size appears enlarged. Left chest wall single-lead AICD. Indistinct appearing pulmonary vascularity. No evidence for lymphadenopathy. No visualized bony or soft tissue abnormality. Impression: Cardiomegaly. Mild perihilar pulmonary edema. Electronically signed by Nader Medrano 07-15-2024 7:56 PM
--- NOTE | 2024-07-15 19:59 | XRay Report ---
Study: Left tib-fib 2 views, right tib-fib 2 views History: Pain Comparison: None Findings: There is no acute fracture or dislocation. Alignment is anatomic. Joint spaces are well maintained. Below-knee amputation of the left knee seen at the proximal tibial and fibular diaphyses where there is healing callus formation. There is generalized subcutaneous edema about the right lower leg, as well as about to the remaining portion of the left lower leg. There is heavy arterial sclerosis seen. Bone mineralization is normal. Impression: No acute bony abnormality. Left below-knee amputation. Generalized soft tissue edema bilaterally. Electronically signed by Nader Medrano 07-15-2024 7:56 PM
--- NOTE | 2024-07-15 19:59 | XRay Report ---
Study: Right foot 2 views History: Wound clinic Comparison: None Findings/impression: A tiny thin curvilinear foreign density is a within the plantar aspect of the soft tissues of the great toe. The tuft of the distal phalanx of the great toe appears blunted, however which appears well-corticated, likely reflecting chronic erosion. The remaining digits, 2-5, appear grossly unremarkable. The soft tissues of the great toe are swollen. There is generalized soft tissue swelling about the foot. Erosive changes with diminished overall size about the plantar aspect of the entire calcaneus. Small and heterotopic ossification within the Achilles tendon. Heavy arterial sclerosis. Electronically signed by Nader Medrano 07-15-2024 7:56 PM
--- NOTE | 2024-07-15 21:17 | History & Physical Report ---
Date of Service July 15, 2024 Assessment & Plan (1) Cellulitis: Plan: Recurrent bilateral LE cellulitis hx LLE osteomyelitis status post left BKA Underlying RLE osteomyelitis No sepsis for now Impaired healing due to patient functional disability and suboptimal home situation Atrial fibrillation, rate controlled/history of DVT, subtherapeutic INR, concern for medical noncompliance due to functional disability chronic systolic heart failure, EF 35%, TTE 2024) sp ICD, mild congestion on imaging hx history CAD hx VT status post ablation hypertension, stable hyperlipidemia, on statin Rx pulmonary hypertension/OHS on BiPAP as per records bronchial asthma, not in acute exacerbation DM2 insulin requiring, well-controlled as of recent hemoglobin A1c of 6.01 May 2024 hypothyroidism, recent TSH from April 2024 slight elevated CRI, at baseline chronic anemia, hemoglobin at baseline despite intermittent bleeding from LE wounds morbid obesity Admit to medical CS, Doxycycline Low-dose IV heparin for now for thromboembolic prophylaxis while INR subtherapeutic, bridge with Coumadin Rx if H&H stable given intermittent LE bleeding Basal bolus insulin, ISS BG goal 1 10-1 40, carb count coverage PT OT eval Social service re: discharge planning DVT prophylaxis Heparin Full code Text document was generated using [employer] voice recognition software. It may contain grammatical or spelling errors. Kindly contact undersigned for clarification of any documentation item in question. History of Present Illness Chief Complaint: Generalized weakness Primary Care Provider: Sherry Maya, History obtained from patient and records. Medical history significant for chronic systolic heart failure, EF 35%, TTE 2024) sp ICD, history CAD, hx VT status post ablation, A-fib/DVT on Coumadin, hypertension, hyperlipidemia, pulmonary hypertension/OHS on BiPAP as per records, bronchial asthma, DM2 insulin requiring, hypothyroidism, CRI (baseline creatinine 1.2- 1.3), chronic anemia (baseline hemoglobin 10), mood disorder, RLE osteomyelitis status post surgery, left foot osteomyelitis status post left BKA, morbid obesity. Extended [facility] confinement May 24 to July 01, 2024 for decompensated heart failure, LLE cellulitis and infected chronic right foot ulcer. Wound cultures negative. Patient completed cefepime and meropenem course. Unsuccessful efforts for rehab/permanent placement. Patient discharged home 2 weeks ago. Patient admitted at [facility] July 02 to 2024 - a day after [facility] discharge. Patient was found by home health nurse living in deplorable conditions. Bleeding from left leg stump wound. Patient discharged from [facility] despite social insurance specialist notifying hospital providers that patient was not safe going home. Patient difficult to understand with flight of ideas and laughing inap propriately as per home health nurse report on home visit. Some trouble getting food as per report. Patient confused about medications. Worried about bilateral painful leg swelling especially on left BKA stump Intermittent bloody drainage. Patient denies headache, fever, chills, chest pain, SOB. Patient manager of case management had to call [employer] twice because patient fell off his chair and had trouble getting up. Patient incapable of transfers and with bowel incontinence. Watery diarrhea symptoms. Patient agreed to home health nurse recommendation for ER evaluation today because he did not look good and he did not feel well. Increasing weakness. MEDICAL HISTORY: As above. SURGICAL HISTORY: Left shoulder surgery, ICD, tonsillectomy/adenoidectomy, left BKA surgery, vascular device placement, right foot wound debridement, vascular procedures FAMILY HISTORY: There is a family history of heart disease and hypertension. PERSONAL SOCIAL HISTORY: Nonsmoker. No chronic intake of alcoholic beverages. 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 Allergies Allergy/AdvReac Type Severity Reaction Status Date / Time benzonatate AdvReac Intermediate choking, Verified 07/15/24 19:22 gagging Home Medications Medication Instructions Recorded Confirmed Type acetaminophen 325 mg tablet 650 mg PO QID PRN Pain 02/08/24 07/15/24 History (Tylenol) aspirin 81 mg tablet,delayed 81 mg PO DAILY 02/08/24 07/15/24 History release atorvastatin 80 mg tablet 80 mg PO DAILY 02/08/24 07/15/24 History levothyroxine 88 mcg tablet 88 mcg PO DAILYBB 02/08/24 07/15/24 History oxycodone 10 mg tablet 10 mg PO Q8H PRN Pain, Severe 02/08/24 07/15/24 History spironolactone 25 mg tablet 25 mg PO DAILY 02/09/24 07/15/24 History triamcinolone acetonide 0.1 % 1 applic topical TID 02/09/24 07/15/24 History lotion ammonium lactate 12 % lotion 1 applic topical DAILY DRY SKIN ON 05/24/24 07/15/24 History LEGS betamethasone dipropionate 0.05 % 1 applic topical BID 05/24/24 07/15/24 History topical cream loratadine 10 mg tablet 10 mg PO DAILY 05/24/24 07/15/24 History torsemide 20 mg tablet 40 mg PO QAM 05/24/24 07/15/24 History duloxetine 60 mg capsule,delayed 60 mg PO QAM #30 caps 07/01/24 07/15/24 Rx release pregabalin 75 mg capsule (Lyrica) 75 mg PO TID #90 caps 07/01/24 07/15/24 Rx warfarin 2 mg tablet 2 mg PO DAILY@1600 #30 tabs 07/01/24 07/15/24 Rx insulin syringe,safety needle 0.5 #200 ea 07/08/24 07/15/24 Rx mL 29 gauge x 1/2" (BD SafetyGlide Insulin Syringe) dicyclomine 10 mg capsule 10 mg PO QID PRN ABD PAIN 07/15/24 07/15/24 History ergocalciferol (vitamin D2) 1,250 1,250 mcg PO WK 07/15/24 07/15/24 History mcg (50,000 unit) capsule (Vitamin D2) ferrous sulfate 325 mg (65 mg 325 mg PO BID 07/15/24 07/15/24 History iron) tablet insulin aspart (niacinamide) 10 unit subcut AC 07/15/24 07/15/24 History (U-100) 100 unit/mL subcutaneous solution insulin glargine 100 unit/mL (3 12 unit subcut BID 07/15/24 07/15/24 History mL) subcutaneous pen (Lantus Solostar U-100 Insulin) lisinopril 5 mg tablet 5 mg PO DAILY 07/15/24 07/15/24 History metoprolol succinate 50 mg 150 mg PO QAM 07/15/24 07/15/24 History tablet,extended release 24 hr multivit,tx with iron 27 1 tab PO DAILY 07/15/24 07/15/24 History [id number] acid 0.4 mg-minerals tablet nystatin 100,000 unit/gram topical 1 applic topical BID 07/15/24 07/15/24 History powder omeprazole 20 mg capsule,delayed 20 mg PO BID 07/15/24 07/15/24 History release potassium chloride 20 mEq 20 meq PO BID 07/15/24 07/15/24 History tablet,extended release(part/cryst) sitagliptin phosphate 50 mg tablet 50 mg PO DAILY 07/15/24 07/15/24 History (Januvia) torsemide 20 mg tablet 20 mg PO QPM 07/15/24 07/15/24 History Past Med/Surg History Problem List (Updated 07/15/24 @ 22:12 by Cal Malik MD) Osteomyelitis of ankle and foot Status post incision and drainage History of below-knee amputation of left lower extremity Diabetic ulcer of right foot associated with diabetes mellitus due to underlying condition, with necrosis of bone Acute osteomyelitis of right calcaneus Epigastric pain Ileus 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 Chronic systolic heart failure Adult failure to thrive (Acute) Chronic pain syndrome Suicidal ideation Cellulitis of left lower leg (Acute) Atrial fibrillation with RVR (Acute) Wound, open, foot with complication (Acute) History of ventricular tachycardia Persistent atrial fibrillation 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 Leg wound, right Cellulitis of right leg (Acute) PVD (peripheral vascular disease) (Acute) Infected abrasion of right leg Morbid obesity H/O osteomyelitis CKD (chronic kidney disease) stage 3, GFR 30-59 ml/min (Chronic) Asthma (Chronic) NINA on CPAP (Chronic) Ischemic cardiomyopathy (Chronic) Hypothyroidism (Chronic) History of diabetic ulcer of foot (Chronic) Cardiac defibrillator in situ (Chronic) 2007 with replacement 03/2020. follows with Dr[address] Maya. 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) (Chronic) Peripheral arterial disease (Chronic) History of COVID-19 (Chronic) History of amputation of left foot (Chronic) Adjustment disorder with mixed disturbance of emotions and conduct MDD (major depressive disorder), recurrent episode, mild Medical History Osteomyelitis of foot, right, acute Diabetes Acute on chronic combined systolic and diastolic CHF (congestive heart failure) Depression with suicidal ideation Acute osteomyelitis of left foot T2DM (type 2 diabetes mellitus) CHF (congestive heart failure) Acute on chronic combined systolic (congestive) and diastolic (congestive) heart failure Diabetic ulcer of right foot Sustained ventricular tachycardia Pneumonia due to COVID-19 virus SARS-CoV-2 positive Sepsis Cellulitis of left lower leg Diabetic ulcer of left heel associated with diabetes mellitus due to underlying condition, limited to breakdown of skin Acute on chronic renal failure Acute hypoxemic respiratory failure Sleep apnea BIPAP Rectal bleeding Depression Deformity of foot Adams fracture Base of left fifth metatarsal, nonhealing x years Diabetic ulcer of left foot associated with type 2 diabetes mellitus, with fat layer exposed Hx of sepsis 06/2019 Arthritis Venous stasis ulcer of right lower leg with edema of right lower leg Hypokalemia Bacteremia due to group B Streptococcus Lymphedema Sustained VT (ventricular tachycardia) GERD (gastroesophageal reflux disease) Hx of osteomyelitis Hx of myocardial infarction found on testing Asthma well controlled, 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 CKD (chronic kidney disease) stage 3, GFR 30-59 ml/min Surgical History History of esophagogastroduodenoscopy (EGD) H/O foot surgery LEFT FOOT ULCER DEBRIDEMENT H/O cardiac radiofrequency ablation OCTOBER 2019 ([facility]) AT [facility] History of cardiac cath V. tach -- no stent. 06/2019. unsure where it was done History of sinus surgery Hx of tonsillectomy History of colonoscopy Hx of amputation of lesser toe H/O shoulder surgery left Family History Sister Family history of diabetes mellitus 2 Grandmother (Maternal) Family history of diabetes mellitus Grandfather (Maternal) Family history of diabetes mellitus Father Cancer Mother Cancer Other No family history of adverse response to anesthesia Social History Smoking Status: Never smoker Second Hand Exposure: No; Do You Dip or Chew Tobacco: No; Hx Alcohol Use: No Hx Substance Use: No Preferred Language: Upper Sorbian Communication Ability: Effective Modeling Teacher Required: No Beliefs That Will Affect Care: Spiritual marital status: Current Living Situation: Alone current occupational status: disabled How many Children do You have: 3 Feels Safe at Home: Yes Safety Concerns: Feels Safe At This Time Assistive Devices: Hospital Bed, Scooter/Electric Scooter, Walker and Wheelchair Review of Systems Review of Systems: As per HPI, all other systems reviewed and negative Physical Exam Physical Exam: GENERAL: Apathetic, morbidly obese, no respiratory distress SKIN: Pallor, warm HEENT: [place]over palpebral conjunctivae, no ptosis, dry buccal mucosa NECK : Supple, short neck, no tenderness CHEST : Decreased breath sounds, no tenderness HEART : Irregular, diminished S1-S2 ABDOMEN: distention, no tenderness EXTREMITIES : Tender erythematous RLE with dressing over wound, left amputation stump induration with tenderness with dressing NEUROLOGIC : Coherent, no facial asymmetry, no other gross focality Results & Data Results & Data Vital Signs (Past 12 Hours) Vital Signs Temp Pulse Pulse Resp BP BP Pulse Ox 07/15/24 20:30 84 24 136/61 93 07/15/24 18:59 86 16 116/73 93 07/15/24 17:31 96 07/15/24 16:39 81 07/15/24 15:25 96 07/15/24 15:25 36.3 C L 73 19 100/74 97 O2 Del Method 07/15/24 20:30 Room Air 07/15/24 18:59 Room Air 07/15/24 17:31 Room Air 07/15/24 16:39 07/15/24 15:25 Room Air 07/15/24 15:25 Room Air Laboratory Results Laboratory Results WBC 5.24 K/ul (4.8-10.8) 07/15/24 16:12 RBC 4.43 M/uL (4.70-6.10) L 07/15/24 16:12 Hgb 12.0 g/dl (14.0-18.0) L 07/15/24 16:12 Hct 37.9 % (42.0-52.0) L 07/15/24 16:12 MCV 85.6 fL (80.0-100.0) 07/15/24 16:12 MCH 27.1 pg (25.0-34.0) 07/15/24 16:12 MCHC 31.7 g/dL (32.0-36.0) L 07/15/24 16:12 RDW Std Deviation 51.4 fL (36.4-46.3) H 07/15/24 16:12 RDW Coeff of Мария 16.4 % (11.5-14.5) H 07/15/24 16:12 Plt Count 303 K/uL (130-400) 07/15/24 16:12 MPV 9.3 fL (9.4-12.4) L 07/15/24 16:12 Immature Gran % (Auto) 0.6 % 07/15/24 16:12 Neut % (Auto) 77.7 % 07/15/24 16:12 Lymph % (Auto) 7.4 % 07/15/24 16:12 [place] % (Auto) 10.1 % 07/15/24 16:12 Eos % (Auto) 3.4 % 07/15/24 16:12 Baso % (Auto) 0.8 % 07/15/24 16:12 Neut # (Auto) 4.07 K/uL (1.40-6.50) 07/15/24 16:12 Lymph # (Auto) 0.39 K/uL (1.20-3.40) L 07/15/24 16:12 [place] # (Auto) 0.53 K/uL (0.11-0.59) 07/15/24 16:12 Eos # (Auto) 0.18 K/uL (0.00-0.50) 07/15/24 16:12 Baso # (Auto) 0.04 K/uL (0.00-0.20) 07/15/24 16:12 Immature Gran # (Auto) 0.03 K/uL (0.01-0.20) 07/15/24 16:12 PT 14.0 Seconds (9.0-12.0) H 07/15/24 16:12 INR 1.3 (0.9-1.1) H 07/15/24 16:12 APTT 31 Seconds (21-31) 07/15/24 16:12 PTT Ratio 1.2 07/15/24 16:12 Sodium 135 mmol/L (136-145) L 07/15/24 16:12 Potassium 3.5 mmol/L (3.5-5.1) 07/15/24 16:12 Chloride 99 mmol/L (98-107) 07/15/24 16:12 Carbon Dioxide 27 mmol/L (21-32) 07/15/24 16:12 Anion Gap 9 (3-11) 07/15/24 16:12 BUN 20 mg/dl (6-23) 07/15/24 16:12 Creatinine 0.90 mg/dl (0.6-1.4) 07/15/24 16:12 Est Cr Clr Drug Dosing 133.6 ml/min 07/15/24 16:12 eGFR 97.78 07/15/24 16:12 BUN/Creatinine Ratio 22.2 (10-20) H 07/15/24 16:12 Glucose 194 mg/dl (70-99(Fasting)) H 07/15/24 16:12 POC Glucose 195 mg/dl (70-99) H 07/15/24 15:31 Calcium 8.9 mg/dl (8.6-10.3) 07/15/24 16:12 Lipase 3 U/L (11-82) L 07/15/24 16:12 Urine Color Yellow 07/15/24 18:39 Urine Appearance Clear (Clear) 07/15/24 18:39 Urine pH 5.5 (4.5-7.5) 07/15/24 18:39 Ur Specific [place] 1.015 (1.000-1.030) 07/15/24 18:39 Urine Protein 1+ (Negative) H 07/15/24 18:39 Urine Glucose (UA) Negative (Negative) 07/15/24 18:39 Urine Ketones 1+ (Negative) H 07/15/24 18:39 Urine Blood Negative (Negative) 07/15/24 18:39 Urine Nitrite Negative (Negative) 07/15/24 18:39 Urine Bilirubin Negative (Negative) 07/15/24 18:39 Urine Urobilinogen Negative (Negative) 07/15/24 18:39 Ur Leukocyte Esterase Negative (Negative) 07/15/24 18:39 Urine WBC (Auto) 0-5 /hpf (0-5) 07/15/24 18:39 Urine RBC (Auto) 0-2 /hpf (0-2) 07/15/24 18:39 U Hyaline Cast (Auto) 6-10 /lpf (0-2) H 07/15/24 18:39 U Epithel Cells (Auto) 0-2 /hpf (0-2) 07/15/24 18:39 Urine Bacteria (Auto) None Seen (None Seen) 07/15/24 18:39 Hyaline Casts Present /lpf (None Presnt) A 07/15/24 18:39 Adenovirus (PCR) Not Detected (NotDetected) 07/15/24 18:10 B. pertussis DNA (PCR) Not Detected (NotDetected) 07/15/24 18:10 B.parapertussis DNA PCR Not Detected (NotDetected) 07/15/24 18:10 C. pneumoniae DNA (PCR) Not Detected (NotDetected) 07/15/24 18:10 Coronavirus OC43 (PCR) Not Detected (NotDetected) 07/15/24 18:10 Coronavirus HKU1 (PCR) Not Detected (NotDetected) 07/15/24 18:10 Coronavirus 229E (PCR) Not Detected (NotDetected) 07/15/24 18:10 SARS-CoV-2 (PCR) Not Detected (NotDetected) 07/15/24 18:10 Coronavirus NL63 (PCR) Not Detected (NotDetected) 07/15/24 18:10 Human Metapneumovir PCR Not Detected (NotDetected) 07/15/24 18:10 Influenza Type A (PCR) Not Detected (NotDetected) 07/15/24 18:10 Influenza Type B (PCR) Not Detected (NotDetected) 07/15/24 18:10 M. pneumoniae (PCR) Not Detected (NotDetected) 07/15/24 18:10 Parainfluenza 1 (PCR) Not Detected (NotDetected) 07/15/24 18:10 Parainfluenza 2 (PCR) Not Detected (NotDetected) 07/15/24 18:10 Parainfluenza 3 (PCR) Not Detected (NotDetected) 07/15/24 18:10 Parainfluenza 4 (PCR) Not Detected (NotDetected) 07/15/24 18:10 RSV (PCR) Not Detected (NotDetected) 07/15/24 18:10 Entero/Rhino (PCR) Not Detected (NotDetected) 07/15/24 18:10 Impressions Chest X-Ray 07/15/24 16:59 Chest radiograph, one view History: Chest pain. Wound clinic Comparison: 05/23/2024 Findings: Single AP view of the chest performed. No focal consolidation or pleural effusion. There is mild perihilar opacity. No pneumothorax. The heart size appears enlarged. Left chest wall single-lead AICD. Indistinct appearing pulmonary vascularity. No evidence for lymphadenopathy. No visualized bony or soft tissue abnormality. Impression: Cardiomegaly. Mild perihilar pulmonary edema. Electronically signed by Nader Medrano 07-15-2024 7:[address] 07/15/24 17:00 CT cervical spine without IV contrast History: Pain Comparison: None Technique: Using multidetector thin collimation helical acquisition technique, axial, coronal and sagittal CT images through the cervical spine were obtained without intravenous contrast. Dose reduction techniques were achieved by using automatic exposure control and/or adjustment of mA and/or kV according to patient size and/or use of iterative reconstruction technique. Findings: The cervical vertebrae are normally aligned. Straightened cervical lordosis. No acute fracture or subluxation. No prevertebral edema. Severe degenerative disc height loss at C5-6, where there is a prominent anterior bridging osteophyte. There are moderate multilevel degenerative changes elsewhere throughout the cervical spine. Mature bony degenerative fusion across the right C2-3 facet joint. No abnormality of the paraspinous soft tissues. Impression: No acute fracture or traumatic subluxation. Electronically signed by Nader Medrano 07-15-2024 7:[address] 07/15/24 17:00 CT head without contrast History: Headache Comparison: None Technique: Using multidetector thin collimation helical acquisition technique, axial, coronal and sagittal CT images from the skull base to the vertex were obtained without intravenous contrast. Dose reduction techniques were achieved by using automatic exposure control and/or adjustment of mA and/or kV according to patient size and/or use of iterative reconstruction technique. Findings: No intracranial hemorrhage, mass-effect, or midline shift. The ventricles are proportionate to the cerebral sulci. The simons to white matter differentiation of the cerebral hemispheres is preserved. The basal cisterns are patent. The visualized paranasal sinuses are clear. Mastoid air cells are clear. Impression: No acute intracranial pathology. Electronically signed by Nader Medrano 07-15-2024 7:10 PM Foot X-Ray 07/15/24 17:03 Study: Right foot 2 views History: Wound clinic Comparison: None Findings/impression: A tiny thin curvilinear foreign density is a within the plantar aspect of the soft tissues of the great toe. The tuft of the distal phalanx of the great toe appears blunted, however which appears well-corticated, likely reflecting chronic erosion. The remaining digits, 2-5, appear grossly unremarkable. The soft tissues of the great toe are swollen. There is generalized soft tissue swelling about the foot. Erosive changes with diminished overall size about the plantar aspect of the entire calcaneus. Small and heterotopic ossification within the Achilles tendon. Heavy arterial sclerosis. Electronically signed by Nader Medrano 07-15-2024 7:56 PM Tibia/Fibula X-Ray 07/15/24 17:03 Study: Left tib-fib 2 views, right tib-fib 2 views History: Pain Comparison: None Findings: There is no acute fracture or dislocation. Alignment is anatomic. Joint spaces are well maintained. Below-knee amputation of the left knee seen at the proximal tibial and fibular diaphyses where there is healing callus formation. There is generalized subcutaneous edema about the right lower leg, as well as about to the remaining portion of the left lower leg. There is heavy arterial sclerosis seen. Bone mineralization is normal. Impression: No acute bony abnormality. Left below-knee amputation. Generalized soft tissue edema bilaterally. Electronically signed by Nader Medrano 07-15-2024 7:[address] Diffuse circumferential soft tissue swelling and edema with overlying dermal thickening. In the absence of traumatic injury, the differential considerations include venous stasis changes or cellulitis. No well- defined loculated abscess or tracking subcutaneous emphysema to suggest necrotizing fasciitis. Right foot CT 1. Diffuse osteopenia and somewhat mottled sclerotic appearance of the osseous structures. There is cortical destruction involving the lateral and plantar aspect of the calcaneus, the cuboid and the proximal head of the fifth metatarsal bone. The appearance is most consistent with extensive osteomyelitis. No pathologic fracture. 2. Soft tissue defect involving the lateral and plantar aspect of the hind and midfoot. Diffuse soft tissue edema. In the absence of traumatic injury, the primary consideration is cellulitis. No tracking subcutaneous emphysema to suggest necrotizing fasciitis or well-defined abscess. LLE CT 1. The left BKA is noted. There is diffuse subcutaneous fat stranding and edema throughout the included left knee and BKA with asymmetric edema and dermal thickening involving the dependent stump. No loculated fluid collection. No tracking subcutaneous emphysema to suggest necrotizing fasciitis. The primary consideration is dependent venous stasis changes or cellulitis. 2. No findings to suggest osteomyelitis of the regional osseous structures. No acute osseous abnormality. Diagnostic Findings EKG as per my interpretation :Rate 85, A-fib, LAD, LAFB, nonspecific T wave abnormalities, septal infarct, PVCs
[2024-07-15] MEDS: OPTIRAY 320 125ml IV ONE (22:06)
--- NOTE | 2024-07-15 22:12 | Emergency Department Note ---
History of Present Illness General Chief complaint: Weakness Stated complaint: WEAKNESS Time Seen by Provider: 07/15/24 16:46 History of Present Illness Provider complaint: Weakness neck pain Maximum Pain Intensity: [age]-year-old male presents emergency department for weakness neck pain. Patient reports he has been having weakness and neck pain over the last month. He reports no falls or traumas. No fever. No headache. No chest pain difficulty breathing. Home Medications Medication Instructions Recorded Confirmed Type acetaminophen 325 mg tablet 650 mg PO DIRECTED PRN Pain 02/08/24 07/15/24 History (Tylenol) aspirin 81 mg tablet,delayed 81 mg PO DAILY 02/08/24 07/15/24 History release atorvastatin 80 mg tablet 80 mg PO DAILY 02/08/24 07/15/24 History levothyroxine 88 mcg tablet 88 mcg PO DAILYBB 02/08/24 07/15/24 History oxycodone 10 mg tablet 10 mg PO Q8H PRN Pain, Severe 02/08/24 07/15/24 History spironolactone 25 mg tablet 25 mg PO DAILY 02/09/24 07/15/24 History triamcinolone acetonide 0.1 % 1 applic topical BID 02/09/24 07/15/24 History lotion ammonium lactate 12 % lotion 1 applic topical DAILY PRN DRY 05/24/24 07/15/24 History SKIN ON LEGS betamethasone dipropionate 0.05 % 1 applic topical BID PRN Skin 05/24/24 07/15/24 History topical cream Irritation loratadine 10 mg tablet 10 mg PO DAILY 05/24/24 07/15/24 History torsemide 20 mg tablet 60 mg PO QAM 05/24/24 07/15/24 History duloxetine 60 mg capsule,delayed 60 mg PO QAM #30 caps 07/01/24 07/15/24 Rx release pregabalin 75 mg capsule (Lyrica) 75 mg PO TID #90 caps 07/01/24 07/15/24 Rx warfarin 2 mg tablet 2 mg PO DAILY@1600 #30 tabs 07/01/24 07/15/24 Rx insulin syringe,safety needle 0.5 #200 ea 07/08/24 07/15/24 Rx mL 29 gauge x 1/2" (BD SafetyGlide Insulin Syringe) clotrimazole 1 % topical cream 1 applic topical BID PRN Skin 07/15/24 07/15/24 History Irritation empagliflozin 10 mg tablet 10 mg PO QAM 07/15/24 07/15/24 History (Jardiance) ergocalciferol (vitamin D2) 1,250 1,250 mcg PO WK 07/15/24 07/15/24 History mcg (50,000 unit) capsule (Vitamin D2) hyoscyamine sulfate 0.125 mg tablet 0.125 mg PO Q4H PRN ABD CRAMPING 07/15/24 07/15/24 History insulin aspart (niacinamide) 7 unit subcut CONTINOUS 07/15/24 07/15/24 History (U-100) 100 unit/mL subcutaneous solution loperamide 2 mg tablet (Imodium 2 mg PO QID PRN Diarrhea 07/15/24 07/15/24 History A-D) metolazone 2.5 mg tablet 2.5 mg PO 3XWK 07/15/24 07/15/24 History metoprolol succinate 50 mg 50 mg PO TID 07/15/24 07/15/24 History tablet,extended release 24 hr mupirocin 2 % topical ointment 1 applic topical DIRECTED PRN 07/15/24 07/15/24 History NEEDED omeprazole 20 mg capsule,delayed 20 mg PO QAM 07/15/24 07/15/24 History release polyethylene glycol 3350 17 17 g PO BID PRN Constipation 07/15/24 07/15/24 History gram/dose oral powder (Miralax) tizanidine 4 mg tablet 4 mg PO Q8H PRN MUSCLE SPASMS 07/15/24 07/15/24 History Allergies Allergy/AdvReac Type Severity Reaction Status Date / Time benzonatate AdvReac Intermediate choking, Verified 07/15/24 19:22 gagging Past Med/Surg History Problem List (Updated 07/15/24 @ 22:12 by Cal Malik MD) Osteomyelitis of ankle and foot Status post incision and drainage History of below-knee amputation of left lower extremity Diabetic ulcer of right foot associated with diabetes mellitus due to underlying condition, with necrosis of bone Acute osteomyelitis of right calcaneus Epigastric pain Ileus 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 Chronic systolic heart failure Adult failure to thrive (Acute) Chronic pain syndrome Suicidal ideation Cellulitis of left lower leg (Acute) Atrial fibrillation with RVR (Acute) Wound, open, foot with complication (Acute) History of ventricular tachycardia Persistent atrial fibrillation 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 Leg wound, right Cellulitis of right leg (Acute) PVD (peripheral vascular disease) (Acute) Infected abrasion of right leg Morbid obesity H/O osteomyelitis CKD (chronic kidney disease) stage 3, GFR 30-59 ml/min (Chronic) Asthma (Chronic) NINA on CPAP (Chronic) Ischemic cardiomyopathy (Chronic) Hypothyroidism (Chronic) History of diabetic ulcer of foot (Chronic) Cardiac defibrillator in situ (Chronic) 2007 with replacement 03/2020. follows with Dr. Maya. 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) (Chronic) Peripheral arterial disease (Chronic) History of COVID-19 (Chronic) History of amputation of left foot (Chronic) Adjustment disorder with mixed disturbance of emotions and conduct MDD (major depressive disorder), recurrent episode, mild Medical History Osteomyelitis of foot, right, acute Diabetes Acute on chronic combined systolic and diastolic CHF (congestive heart failure) Depression with suicidal ideation Acute osteomyelitis of left foot T2DM (type 2 diabetes mellitus) CHF (congestive heart failure) Acute on chronic combined systolic (congestive) and diastolic (congestive) heart failure Diabetic ulcer of right foot Sustained ventricular tachycardia Pneumonia due to COVID-19 virus SARS-CoV-2 positive Sepsis Cellulitis of left lower leg Diabetic ulcer of left heel associated with diabetes mellitus due to underlying condition, limited to breakdown of skin Acute on chronic renal failure Acute hypoxemic respiratory failure Sleep apnea BIPAP Rectal bleeding Depression Deformity of foot Adams fracture Base of left fifth metatarsal, nonhealing x years Diabetic ulcer of left foot associated with type 2 diabetes mellitus, with fat layer exposed Hx of sepsis 06/2019 Arthritis Venous stasis ulcer of right lower leg with edema of right lower leg Hypokalemia Bacteremia due to group B Streptococcus Lymphedema Sustained VT (ventricular tachycardia) GERD (gastroesophageal reflux disease) Hx of osteomyelitis Hx of myocardial infarction found on testing Asthma well controlled, daily long-term 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 CKD (chronic kidney disease) stage 3, GFR 30-59 ml/min Surgical History History of esophagogastroduodenoscopy (EGD) H/O foot surgery LEFT FOOT ULCER DEBRIDEMENT H/O cardiac radiofrequency ablation OCTOBER 2019 ([facility]) AT [facility] History of cardiac cath V. tach -- no stent. 06/2019. unsure where it was done History of sinus surgery Hx of tonsillectomy History of colonoscopy Hx of amputation of lesser toe H/O shoulder surgery left Family History Sister Family history of diabetes mellitus 2 Grandmother (Maternal) Family history of diabetes mellitus Grandfather (Maternal) Family history of diabetes mellitus Father Cancer Mother Cancer Other No family history of adverse response to anesthesia Social History Smoking Status: Never smoker Second Hand Exposure: No; Do You Dip or Chew Tobacco: No; Hx Alcohol Use: No Hx Substance Use: No Preferred Language: Thai Communication Ability: Effective Lithographic Platemaker Required: No Beliefs That Will Affect Care: Spiritual marital status: Current Living Situation: Alone current occupational status: disabled How many Children do You have: 3 Feels Safe at Home: Yes Assistive Devices: Prosthesis, Scooter/Electric Scooter and Wheelchair Physical Exam Vital Signs Vital Signs - 24 hr 07/15/24 15:25 07/15/24 15:25 07/15/24 16:39 Temperature 36.3 C L Temperature Source Oral Pulse Rate 73 81 Pulse Rate [Apical] Respiratory Rate 19 Respiratory Effort / Characteristics Respiratory Depth Blood Pressure 100/74 Blood Pressure [Left Arm] Blood Pressure Mean 82 Blood Pressure Mean [Left Arm] Pulse Oximetry 97 96 Oxygen Delivery Method Room Air Room Air Sepsis Recent Fever Within 48 Hours No Sepsis New/Unexplained Change in Mental Status No Sepsis Action Taken by Nursing No Action Required 07/15/24 17:31 07/15/24 18:59 07/15/24 20:30 Temperature Temperature Source Pulse Rate Pulse Rate [Apical] 86 84 Respiratory Rate 16 24 Respiratory Effort / Characteristics Non-Labored Spontaneous Non-Labored Spontaneous Respiratory Depth Normal Normal Blood Pressure Blood Pressure [Left Arm] 116/73 136/61 Blood Pressure Mean Blood Pressure Mean [Left Arm] 87 86 Pulse Oximetry 96 93 93 Oxygen Delivery Method Room Air Room Air Room Air Sepsis Recent Fever Within 48 Hours Sepsis New/Unexplained Change in Mental Status Sepsis Action Taken by Nursing 07/15/24 20:47 Temperature Temperature Source Pulse Rate 83 Pulse Rate [Apical] Respiratory Rate Respiratory Effort / Characteristics Respiratory Depth Blood Pressure Blood Pressure [Left Arm] Blood Pressure Mean Blood Pressure Mean [Left Arm] Pulse Oximetry Oxygen Delivery Method Sepsis Recent Fever Within 48 Hours Sepsis New/Unexplained Change in Mental Status Sepsis Action Taken by Nursing Physical Exam HENT: Exam performed. - Head: Normocephalic and atraumatic. EYES: Conjunctivae and EOM are normal. Pupils are equal, round, and reactive to light. Right eye exhibits no discharge. Left eye exhibits no discharge. No scleral icterus. NECK: Normal range of motion. Neck supple. No JVD present. CV: Normal rate, irregular rhythm, normal heart sounds and intact distal pulses.Palpable radial pulses bue. PULM/CHEST: Effort normal and breath sounds normal. No respiratory distress. No stridor. He has no wheezes. He has no rales. ABD: The abdomen is soft. Morbidly obese MUSC/SKEL: Lymphedema of the bilateral lower extremities. Right-sided BKA. Wounds over the bilateral lower extremities. NEURO: Motor and sensation grossly intact. Course Course 164: The patient was evaluated in room C1. A complete history and physical exam was performed Cardiac monitoring: An order was placed for continuous cardiac monitoring. The monitor shows a rate of 80 with atrial fibrilation rhythm interpreted by me Nursing informed me that they received a call from the office of aging that the patient is not safe in his home and would like the patient to be admitted until they can secure a safe place for the patient to live. 2009: Vital signs stable. Labs and imaging are unremarkable. Patient will be admitted given his social situation or concerns by office of aging. Administered Medications Discontinued Medications Ioversol (Optiray 320 125ml) 120 ml IV ONCE ONE Stop: 07/15/24 22:06 Last Admin: 07/15/24 22:06 Dose: 120 ml Documented By: DENNISE Medical Decision Making Laboratory Data Attestation: I reviewed the patient's lab results. 07/15/24 16:12 07/15/24 16:12 Lab Results 07/15/24 07/15/24 07/15/24 Range/Units 15:31 16:12 18:10 WBC 5.24 (4.8-10.8) K/ul RBC 4.43 L (4.70-6.10) M/uL Hgb 12.0 L (14.0-18.0) g/dl Hct 37.9 L (42.0-52.0) % MCV 85.6 (80.0-100.0) fL MCH 27.1 (25.0-34.0) pg MCHC 31.7 L (32.0-36.0) g/dL RDW Std Deviation 51.4 H (36.4-46.3) fL RDW Coeff of Мария 16.4 H (11.5-14.5) % Plt Count 303 (130-400) K/uL MPV 9.3 L (9.4-12.4) fL Immature Gran % (Auto) 0.6 % Neut % (Auto) 77.7 % Lymph % (Auto) 7.4 % Carson % (Auto) 10.1 % Eos % (Auto) 3.4 % Baso % (Auto) 0.8 % Neut # (Auto) 4.07 (1.40-6.50) K/uL Lymph # (Auto) 0.39 L (1.20-3.40) K/uL Carson # (Auto) 0.53 (0.11-0.59) K/uL Eos # (Auto) 0.18 (0.00-0.50) K/uL Baso # (Auto) 0.04 (0.00-0.20) K/uL Immature Gran # (Auto) 0.03 (0.01-0.20) K/uL PT 14.0 H (9.0-12.0) Seconds INR 1.3 H (0.9-1.1) APTT 31 (21-31) Seconds PTT Ratio 1.2 Sodium 135 L (136-145) mmol/L Potassium 3.5 (3.5-5.1) mmol/L Chloride 99 (98-107) mmol/L Carbon Dioxide 27 (21-32) mmol/L Anion Gap 9 (3-11) BUN 20 (6-23) mg/dl Creatinine 0.90 (0.6-1.4) mg/dl Est Cr Clr Drug Dosing 133.6 ml/min eGFR 97.78 BUN/Creatinine Ratio 22.2 H (10-20) Glucose 194 H (70-99(Fasting)) mg/dl POC Glucose 195 H (70-99) mg/dl Calcium 8.9 (8.6-10.3) mg/dl Lipase 3 L (11-82) U/L Urine Color Urine Appearance (Clear) Urine pH (4.5-7.5) Ur Specific [place] (1.000-1.030) Urine Protein (Negative) Urine Glucose (UA) (Negative) Urine Ketones (Negative) Urine Blood (Negative) Urine Nitrite (Negative) Urine Bilirubin (Negative) Urine Urobilinogen (Negative) Ur Leukocyte Esterase (Negative) Urine WBC (Auto) (0-5) /hpf Urine RBC (Auto) (0-2) /hpf U Hyaline Cast (Auto) (0-2) /lpf U Epithel Cells (Auto) (0-2) /hpf Urine Bacteria (Auto) (None Seen) Hyaline Casts (None Presnt) /lpf Adenovirus (PCR) Not Detected (NotDetected) B. pertussis DNA (PCR) Not Detected (NotDetected) B.parapertussis DNA PCR Not Detected (NotDetected) C. pneumoniae DNA (PCR) Not Detected (NotDetected) Coronavirus OC43 (PCR) Not Detected (NotDetected) Coronavirus HKU1 (PCR) Not Detected (NotDetected) Coronavirus 229E (PCR) Not Detected (NotDetected) SARS-CoV-2 (PCR) Not Detected (NotDetected) Coronavirus NL63 (PCR) Not Detected (NotDetected) Human Metapneumovir PCR Not Detected (NotDetected) Influenza Type A (PCR) Not Detected (NotDetected) Influenza Type B (PCR) Not Detected (NotDetected) M. pneumoniae (PCR) Not Detected (NotDetected) Parainfluenza 1 (PCR) Not Detected (NotDetected) Parainfluenza 2 (PCR) Not Detected (NotDetected) Parainfluenza 3 (PCR) Not Detected (NotDetected) Parainfluenza 4 (PCR) Not Detected (NotDetected) RSV (PCR) Not Detected (NotDetected) Entero/Rhino (PCR) Not Detected (NotDetected) 07/15/24 Range/Units 18:39 WBC (4.8-10.8) K/ul RBC (4.70-6.10) M/uL Hgb (14.0-18.0) g/dl Hct (42.0-52.0) % MCV (80.0-100.0) fL MCH (25.0-34.0) pg MCHC (32.0-36.0) g/dL RDW Std Deviation (36.4-46.3) fL RDW Coeff of Мария (11.5-14.5) % Plt Count (130-400) K/uL MPV (9.4-12.4) fL Immature Gran % (Auto) % Neut % (Auto) % Lymph % (Auto) % Carson % (Auto) % Eos % (Auto) % Baso % (Auto) % Neut # (Auto) (1.40-6.50) K/uL Lymph # (Auto) (1.20-3.40) K/uL Carson # (Auto) (0.11-0.59) K/uL Eos # (Auto) (0.00-0.50) K/uL Baso # (Auto) (0.00-0.20) K/uL Immature Gran # (Auto) (0.01-0.20) K/uL PT (9.0-12.0) Seconds INR (0.9-1.1) APTT (21-31) Seconds PTT Ratio Sodium (136-145) mmol/L Potassium (3.5-5.1) mmol/L Chloride (98-107) mmol/L Carbon Dioxide (21-32) mmol/L Anion Gap (3-11) BUN (6-23) mg/dl Creatinine (0.6-1.4) mg/dl Est Cr Clr Drug Dosing ml/min eGFR BUN/Creatinine Ratio (10-20) Glucose (70-99(Fasting)) mg/dl POC Glucose (70-99) mg/dl Calcium (8.6-10.3) mg/dl Lipase (11-82) U/L Urine Color Yellow Urine Appearance Clear (Clear) Urine pH 5.5 (4.5-7.5) Ur Specific [place] 1.015 (1.000-1.030) Urine Protein 1+ H (Negative) Urine Glucose (UA) Negative (Negative) Urine Ketones 1+ H (Negative) Urine Blood Negative (Negative) Urine Nitrite Negative (Negative) Urine Bilirubin Negative (Negative) Urine Urobilinogen Negative (Negative) Ur Leukocyte Esterase Negative (Negative) Urine WBC (Auto) 0-5 (0-5) /hpf Urine RBC (Auto) 0-2 (0-2) /hpf U Hyaline Cast (Auto) 6-10 H (0-2) /lpf U Epithel Cells (Auto) 0-2 (0-2) /hpf Urine Bacteria (Auto) None Seen (None Seen) Hyaline Casts Present A (None Presnt) /lpf Adenovirus (PCR) (NotDetected) B. pertussis DNA (PCR) (NotDetected) B.parapertussis DNA PCR (NotDetected) C. pneumoniae DNA (PCR) (NotDetected) Coronavirus OC43 (PCR) (NotDetected) Coronavirus HKU1 (PCR) (NotDetected) Coronavirus 229E (PCR) (NotDetected) SARS-CoV-2 (PCR) (NotDetected) Coronavirus NL63 (PCR) (NotDetected) Human Metapneumovir PCR (NotDetected) Influenza Type A (PCR) (NotDetected) Influenza Type B (PCR) (NotDetected) M. pneumoniae (PCR) (NotDetected) Parainfluenza 1 (PCR) (NotDetected) Parainfluenza 2 (PCR) (NotDetected) Parainfluenza 3 (PCR) (NotDetected) Parainfluenza 4 (PCR) (NotDetected) RSV (PCR) (NotDetected) Entero/Rhino (PCR) (NotDetected) Imaging Data Radiologist's Impression: Chest X-Ray 07/15/24 16:59 Chest radiograph, one view History: Chest pain. Wound clinic Comparison: 05/23/2024 Findings: Single AP view of the chest performed. No focal consolidation or pleural effusion. There is mild perihilar opacity. No pneumothorax. The heart size appears enlarged. Left chest wall single-lead AICD. Indistinct appearing pulmonary vascularity. No evidence for lymphadenopathy. No visualized bony or soft tissue abnormality. Impression: Cardiomegaly. Mild perihilar pulmonary edema. Electronically signed by Nader Medrano 07-15-2024 7:[address] 07/15/24 17:00 CT cervical spine without IV contrast History: Pain Comparison: None Technique: Using multidetector thin collimation helical acquisition technique, axial, coronal and sagittal CT images through the cervical spine were obtained without intravenous contrast. Dose reduction techniques were achieved by using automatic exposure control and/or adjustment of mA and/or kV according to patient size and/or use of iterative reconstruction technique. Findings: The cervical vertebrae are normally aligned. Straightened cervical lordosis. No acute fracture or subluxation. No prevertebral edema. Severe degenerative disc height loss at C5-6, where there is a prominent anterior bridging osteophyte. There are moderate multilevel degenerative changes elsewhere throughout the cervical spine. Mature bony degenerative fusion across the right C2-3 facet joint. No abnormality of the paraspinous soft tissues. Impression: No acute fracture or traumatic subluxation. Electronically signed by Nader Medrano 07-15-2024 7:[address] 07/15/24 17:00 CT head without contrast History: Headache Comparison: None Technique: Using multidetector thin collimation helical acquisition technique, axial, coronal and sagittal CT images from the skull base to the vertex were obtained without intravenous contrast. Dose reduction techniques were achieved by using automatic exposure control and/or adjustment of mA and/or kV according to patient size and/or use of iterative reconstruction technique. Findings: No intracranial hemorrhage, mass-effect, or midline shift. The ventricles are proportionate to the cerebral sulci. The simons to white matter differentiation of the cerebral hemispheres is preserved. The basal cisterns are patent. The visualized paranasal sinuses are clear. Mastoid air cells are clear. Impression: No acute intracranial pathology. Electronically signed by Nader Medrano 07-15-2024 7:10 PM Tibia/Fibula X-Ray 07/15/24 17:02 Study: Left tib-fib 2 views, right tib-fib 2 views History: Pain Comparison: None Findings: There is no acute fracture or dislocation. Alignment is anatomic. Joint spaces are well maintained. Below-knee amputation of the left knee seen at the proximal tibial and fibular diaphyses where there is healing callus formation. There is generalized subcutaneous edema about the right lower leg, as well as about to the remaining portion of the left lower leg. There is heavy arterial sclerosis seen. Bone mineralization is normal. Impression: No acute bony abnormality. Left below-knee amputation. Generalized soft tissue edema bilaterally. Electronically signed by Nader Medrano 07-15-2024 7:56 PM Foot X-Ray 07/15/24 17:03 Study: Right foot 2 views History: Wound clinic Comparison: None Findings/impression: A tiny thin curvilinear foreign density is a within the plantar aspect of the soft tissues of the great toe. The tuft of the distal phalanx of the great toe appears blunted, however which appears well-corticated, likely reflecting chronic erosion. The remaining digits, 2-5, appear grossly unremarkable. The soft tissues of the great toe are swollen. There is generalized soft tissue swelling about the foot. Erosive changes with diminished overall size about the plantar aspect of the entire calcaneus. Small and heterotopic ossification within the Achilles tendon. Heavy arterial sclerosis. Electronically signed by Nader Medrano 07-15-2024 7:56 PM Tibia/Fibula X-Ray 07/15/24 17:03 Study: Left tib-fib 2 views, right tib-fib 2 views History: Pain Comparison: None Findings: There is no acute fracture or dislocation. Alignment is anatomic. Joint spaces are well maintained. Below-knee amputation of the left knee seen at the proximal tibial and fibular diaphyses where there is healing callus formation. There is generalized subcutaneous edema about the right lower leg, as well as about to the remaining portion of the left lower leg. There is heavy arterial sclerosis seen. Bone mineralization is normal. Impression: No acute bony abnormality. Left below-knee amputation. Generalized soft tissue edema bilaterally. Electronically signed by Nader Medrano 07-15-2024 7:56 PM ECG Data Attestation: I personally reviewed and interpreted this ECG as follows: Rate (beats per minute): 86 Rhythm: + atrial fibrillation ECG ST segments: + Normal ST segments ECG Findings: + PVCs Additional Comments: QRS 138 QTc 548 MDM Narrative 1646: The patient was evaluated in room C1. A complete history and physical exam was performed Cardiac monitoring: An order was placed for continuous cardiac monitoring. The monitor shows a rate of 80 with atrial fibrilation rhythm interpreted by me Nursing informed me that they received a call from the office of aging that the patient is not safe in his home and would like the patient to be admitted until they can secure a safe place for the patient to live. 2009: Vital signs stable. Labs and imaging are unremarkable. Patient will be admitted given his social situation or concerns by office of aging. Impression & Plan Adult failure to thrive Discharge Plan Visit Data Chief Complaint: Weakness Stated Complaint: WEAKNESS ED Provider: Cal Malik Discharge Problem: Adult failure to thrive Patient Disposition: Being Evaluated by Hospitalist Forms Stand Alone Forms: My [facility] Prescriptions Prescriptions: No Action (DME) BD SafetyGlide Insulin Syringe 0.5 mL 29 gauge x 1/2" syringe See Rx Instructions .Route Qty: 200 3RF Rx Instructions: use new syringe with each injection 4x daily atorvastatin 80 mg tablet 80 mg PO DAILY Hold Instructions: Resume on 03/23/24. Hold till completion of antiboitics acetaminophen [Tylenol] 325 mg Tablet 650 mg PO DIRECTED PRN (Reason: Pain) aspirin 81 mg Tablet,Delayed Release (Dr/Ec) 81 mg PO DAILY levothyroxine 88 mcg Tablet 88 mcg PO DAILYBB oxycodone 10 mg tablet 10 mg PO Q8H PRN (Reason: Pain, Severe) spironolactone 25 mg tablet 25 mg PO DAILY triamcinolone acetonide 0.1 % Lotion 1 applic TOPICAL BID Rx Instructions: APPLY TO LOWER LEGS AND STUMP TO AVOID OPEN WOUNDS betamethasone dipropionate 0.05 % Cream 1 applic TOPICAL BID PRN (Reason: Skin Irritation) torsemide 20 mg Tablet 60 mg PO QAM Rx Instructions: PER [facility]---PT TAKES 60 MG QAM RATHER THAN SEVERAL TIMES A DAY. ammonium lactate 12 % Lotion 1 applic TOPICAL DAILY PRN (Reason: DRY SKIN ON LEGS) loratadine 10 mg Tablet 10 mg PO DAILY warfarin 2 mg Tablet 2 mg PO DAILY@1600 Qty: 30 0RF Rx Instructions: CAN NOT VERIFY DOSAGE. duloxetine 60 mg Capsule,Delayed Release(Dr/Ec) 60 mg PO QAM Qty: 30 0RF Rx Instructions: PER EXT MED HX---60 MG QAM, PER [facility]-- 20 MG QAM. pregabalin [Lyrica] 75 mg Capsule 75 mg PO TID Qty: 90 0RF Rx Instructions: EXT MED HX---LAST FILLED 07/01/24--75 MG TID, PER [facility]---50 MG TID. metolazone 2.5 mg Tablet 2.5 mg PO 3XWK Rx Instructions: MON, WED, & FRI. tizanidine 4 mg Tablet 4 mg PO Q8H PRN (Reason: MUSCLE SPASMS) loperamide [Imodium A-D] 2 mg Tablet 2 mg PO QID PRN (Reason: Diarrhea) hyoscyamine sulfate 0.125 mg Tablet 0.125 mg PO Q4H PRN (Reason: ABD CRAMPING) mupirocin 2 % Ointment 1 applic TOPICAL DIRECTED PRN (Reason: NEEDED) ergocalciferol (vitamin D2) [Vitamin D2] 1,250 mcg (50,000 unit) Capsule 1,250 mcg PO WK polyethylene glycol 3350 [Miralax] 17 gram/dose Powder 17 g PO BID PRN (Reason: Constipation) clotrimazole 1 % Cream 1 applic TOPICAL BID PRN (Reason: Skin Irritation) Jardiance 10 mg Tablet 10 mg PO QAM insulin aspart (niacinamide) 100 unit/mL Solution 7 unit SUBCUT CONTINOUS Rx Instructions: INSULIN PUMP---BASAL RATE 7 UNITS/HOUR metoprolol succinate 50 mg tablet extended release 24 hr 50 mg PO TID Rx Instructions: PER JAKE--PT TAKING 50 MG TID. omeprazole 20 mg capsule,delayed release(DR/EC) 20 mg PO QAM Referrals Referrals: Sherry Maya DO [Primary Care Provider] -
[2024-07-15] MEDS: oxyCODONE HCL IR 5 MG TAB (IMMEDIATE RELEASE) PO PRN (22:23)
[2024-07-15] MEDS: DOXYCYCLINE HYCLATE 100 MG in DEXTROSE 5% MINI-B 100 ML IV STA (22:24)
[2024-07-15] MEDS: LANTUS PER UNIT CHARGE SQ SCH (22:24)
[2024-07-15] MEDS ORDERED: GLUCAGON FOR INJ 1 MG VIAL SQ PRN (23:40)
[2024-07-15] MEDS ORDERED: DEXTROSE 50% 50 ML SYRINGE IV PRN (23:40)
[2024-07-15] MEDS ORDERED: CARBOHYDRATES FOR HYPOGLYCEMIA PO PRN (23:40)
[2024-07-15] MEDS ORDERED: GLUCOSE 40% GEL 15 GM TUBE PO PRN (23:40)
[2024-07-15] MEDS ORDERED: GLUCOSE 10 TAB/TUBE PO PRN (23:40)
--- NOTE | 2024-07-16 00:28 | CT Scan Report ---
Exam(s): CT EXTREMITY RIGHT LOWER With Contrast IV Amt: 120ml optiray 320 EXAM: CT Right Lower Extremity With Intravenous Contrast CLINICAL HISTORY: swelling. TECHNIQUE: Axial computed tomography images of the right lower extremity with intravenous contrast. CTDI is 14.18 mGy and DLP is 862.3 mGy-cm. Automated exposure control was utilized for the study. A dose lowering technique was utilized adhering to the principles of ALARA. CONTRAST: Patient received 120ml optiray 320 of IV contrast COMPARISON: No relevant prior studies available. FINDINGS: Bones/joints: No acute osseous abnormality involving the tibia and fibula. Please see the dedicated CT examination of the right foot for findings regarding the osseous structures of the foot. No dislocation. Soft tissues: Diffuse circumferential subcutaneous fat stranding and edema with extensive dermal thickening noted throughout the right calf from the included distal thigh through the ankle. No well-defined fluid collection or tracking subcutaneous emphysema. There is scattered subdermal punctate calcifications. Fatty infiltration of the muscle bundles. No intramuscular focal abnormality. IMPRESSION: Diffuse circumferential soft tissue swelling and edema with overlying dermal thickening. In the absence of traumatic injury, the differential considerations include venous stasis changes or cellulitis. No well- defined loculated abscess or tracking subcutaneous emphysema to suggest necrotizing fasciitis. Electronically signed by: Mychal Nuñez MD 07/16/24 00:27 AM
--- NOTE | 2024-07-16 00:33 | CT Scan Report ---
Exam(s): CT RIGHT FOOT With Contrast IV Amt: 120ml optiray 320 EXAM: CT Right Lower Extremity With Intravenous Contrast, Foot CLINICAL HISTORY: swelling. TECHNIQUE: Axial computed tomography images of the right foot with intravenous contrast. CTDI is 14.18 mGy and DLP is 862.3 mGy-cm. Automated exposure control was utilized for the study. A dose lowering technique was utilized adhering to the principles of ALARA. CONTRAST: Patient received 120ml optiray 320 of IV contrast COMPARISON: No relevant prior studies available. FINDINGS: Bones/joints: Diffuse osteopenia and somewhat mottled sclerotic appearance of the osseous structures. There is cortical destruction involving the lateral and plantar aspect of the calcaneus, the cuboid and the proximal head of the fifth metatarsal bone. No pathologic fracture. Degenerative changes throughout the foot. There is a pes planus configuration of the arch. There is surgical absence of the distal phalanx of the first digit. No dislocation. Soft tissues: There is a soft tissue defect involving the plantar and lateral aspect of the hindfoot and midfoot. The soft tissue defect approximates the abnormal osseous structures detailed in the bone section with only 2-3 mm of soft tissue covering the osseous structures. In addition, there is diffuse subcutaneous edema, most prominent overlying the dorsum of the foot. No tracking subcutaneous emphysema or well- defined loculated fluid collection. No radiopaque foreign body. IMPRESSION: 1. Diffuse osteopenia and somewhat mottled sclerotic appearance of the osseous structures. There is cortical destruction involving the lateral and plantar aspect of the calcaneus, the cuboid and the proximal head of the fifth metatarsal bone. The appearance is most consistent with extensive osteomyelitis. No pathologic fracture. 2. Soft tissue defect involving the lateral and plantar aspect of the hind and midfoot. Diffuse soft tissue edema. In the absence of traumatic injury, the primary consideration is cellulitis. No tracking subcutaneous emphysema to suggest necrotizing fasciitis or well-defined abscess. Electronically signed by: Mychal Nuñez MD 07/16/24 00:32 AM
--- NOTE | 2024-07-16 00:55 | CT Scan Report ---
Exam(s): CT LEFT KNEE With Contrast IV Amt: 120ml optiray 320 EXAM: CT Left Lower Extremity With Intravenous Contrast, Knee CLINICAL HISTORY: bka stump swelling. TECHNIQUE: Axial computed tomography images of the left knee with intravenous contrast. CTDI is 14.18 mGy and DLP is 862.3 mGy-cm. Automated exposure control was utilized for the study. A dose lowering technique was utilized adhering to the principles of ALARA. CONTRAST: Patient received 120ml optiray 320 of IV contrast COMPARISON: No relevant prior studies available. FINDINGS: Bones/joints: The regional osseous structures are intact. There are reactive changes along the distal aspect of the left tibial and fibular stumps. No cortical destruction or acute periosteal reaction. No dislocation. Soft tissues: The left BKA is noted. There is diffuse subcutaneous fat stranding and edema throughout the included left knee and BKA with asymmetric edema and dermal thickening involving the dependent stump. No loculated fluid collection. No tracking subcutaneous emphysema. IMPRESSION: 1. The left BKA is noted. There is diffuse subcutaneous fat stranding and edema throughout the included left knee and BKA with asymmetric edema and dermal thickening involving the dependent stump. No loculated fluid collection. No tracking subcutaneous emphysema to suggest necrotizing fasciitis. The primary consideration is dependent venous stasis changes or cellulitis. 2. No findings to suggest osteomyelitis of the regional osseous structures. No acute osseous abnormality. Electronically signed by: Mychal Nuñez MD 07/16/24 00:54 AM
[2024-07-16] MEDS ORDERED: Heparin IV Adult Wt-Based Low-Dose *NO* INITIAL Bolus Protocol IV STA (01:17)
[2024-07-16] MEDS: INSULIN ASPART PER UNIT CHARGE SC SCH (02:21)
[2024-07-16] MEDS: HEPARIN 25000 UNIT/500 ML D5W 25,000 UNITS/500 ML BAG IV SCH (02:21)
[2024-07-16 03:56] LABS: Basophils # (auto) 0.05 K/uL (0.00-0.20); Eosinophils # (auto) 0.25 K/uL (0.00-0.50); Hematocrit (blood only) 34.9 % (42.0-52.0); Immature Granulocytes # (auto) 0.03 K/uL (0.01-0.20); Immature Granulocytes % (auto) 0.6 %; Lymphocytes # (auto) 0.61 K/uL (1.20-3.40); Lymphocytes % (auto) 12.1 %; Mean Corpuscular Hemoglobin 26.6 pg (25.0-34.0); Mean Corpuscular Hgb Conc 31.5 g/dL (32.0-36.0); Mean Corpuscular Volume 84.3 fL (80.0-100.0); Mean Platelet Volume 8.9 fL (9.4-12.4); Monocytes # (auto) 0.64 K/uL (0.11-0.59); Monocytes % (auto) 12.7 %; Neutrophils # (auto) 3.47 K/uL (1.40-6.50); Neutrophils % (auto) 68.6 %; Platelet Count 310 K/uL (130-400); RDW Coefficient of Variation 16.5 % (11.5-14.5); RDW Standard Deviation 50.6 fL (36.4-46.3); Red Blood Count 4.14 M/uL (4.70-6.10); White Blood Count 5.05 K/ul (4.8-10.8)
[2024-07-16 04:12] LABS: BUN Creatinine Ratio 22.8 (10-20); Calcium 8.6 mg/dl (8.6-10.3); Creatinine Clr Calc Pharmacy 152.2 ml/min; Potassium 3.1 mmol/L (3.5-5.1)
[2024-07-16 04:20] LABS: INR 1.4 (0.9-1.1); Prothrombin Time 14.5 Seconds (9.0-12.0)
--- OUTSIDE RECORDS SUMMARY | 2024-07-16 05:08 | External Medical Summary | Summary of Care ---
Author Name Unknown Organization [facility] Address [address] [place] [address] Phone [phone] Care Team Providers Care Chief Internal Auditor Name Role Phone Sherry Maya DO Primary Care Provider [phone] Encounter Details Date Type Department Care Team (Late st Contact Info) Description 07/11/2024 9:00 AM EDT Scheduled Telephone Care Coordination and Integration [address] [place] [address] [facility] Fine Grade Operator [address], [place] [id number] Allergies Active Allergy Reactions Criticality Noted Date Comments Benzonatate 12/08/2016 choking Keyanna Pedraza Other (Please comment) High 04/10/20 09 Choking documented as of this encounter (statuses as of 07/11/2024) Medications ONETOUCH LANCETS MISCIndications:DM type 2, not [...] daily. 30 Cap 5 11/20/20 17 Active Additional Information Patient not taking.Reported on 07/11/2024 Glucose Blood (Band MetricsTOUCH VERIO) STRP USE TO TEST BLOOD GLUCOSE [...] Apply to hands 100 g 05/31/19 Active Additional Information Patient not taking.Reported on 07/11/2024 polyethylene glycol 3350 119 gram PO POWD Take 119 g by mouth daily as needed for Constipation. May use up to 2-3 times per day as needed. 08/10/19 Active BiPAP every night at bedtime. 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 3 Each 3 04/12/20 Active Additional Information Patient not taking.Reported on 07/11/2024 Aspirin 81 MG Oral Tablet ChewableIndications: Dyslipidemia, [...] before bedtime. 60 Tablet 09/16/19 23 Active Additional Information Patient not taking.Reported on 07/11/2024 Ammonium Lactate 12 % External Lotion (Lac-Hydrin)Indicati [...] morning. 100 Tablet 3 06/19/19 24 Active metOLazone 2.5 MG Oral Tablet (Zaroxolyn) Take 1 Tablet by mouth once a day on Thursday, Thursday, and Thursday only. 90 Tablet 1 07/13/19 24 Active DULoxetine HCl 20 MG Oral Capsule Delayed Release Particles (duloxetine) Take 1 Capsule by mouth in the morning. Do not cut, crush or chew. 90 Capsule 2 07/13/19 24 Active Warfarin Sodium 2 MG Oral Tablet [...] mg three times a day, Reported on 07/11/2024 Loperamide HCl 2 MG Oral Tablet (Imodium [...] and 40 meq in evening, Reported on 07/11/2024 DAPTOmycin 500 MG Intravenous Solution Reconstituted (Cubicin) Administer 500 mg intravenously in the morning. 02/19/20 24 Active Betamethasone Dipropionate 0.05 % [...] 24 Active Vitamin D (Ergocalciferol) 1.25 MG (03024 UT) Oral Capsule (Drisdol) TAKE ONE CAPSULE [...] as of this encounter (statuses as of 07/11/2024) Active Problems Problem Noted Date Diagnosed Date [...] (07/04/2019): Added automatically from request for surgery [id number] 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 [...] as of this encounter (statuses as of 07/11/2024) Resolved Problems Problem Noted Date Diagnosed Date [...] Silent myocardial infarction 03/23/2013 11/08/2018 Accelerate Clinical Trial*[id number] 01/24/2013 05/16/2015 Overview (01/24/2013): ACCELERATE STUDY. Project # [id number], BINGO FLOATER: Ben Hoover MD. CRC: DEBORAH Back. SUMMARY: To test the hypothesis that Evacetrapib 130 mg, in comparison to placebo, reduces the risk of major adverse coronary events in high-risk vascular disease patients. CONTACTS: During normal business hours, contact study staff at ; after hours Stallion Manager via the [facility] chain hoist operator [phone]. 24-hour Global Study Helpline: [phone]. Lipid levels should not be ordered/obtained while [...] 250 mg, 2) gemfibrozil with a potent [id number]. NINA on CPAP 06/28/2012 01/31/2020 Overview (06/28/2012): [...] as of this encounter (statuses as of 07/11/2024) Immunizations Name Administration Dates Next Due COVID-19 [...] No 09/08/2023 Does the household have a [facility] source of income? (Household - for ages [...] ages 0-17 years) Not on file 09/08/2023 Food Insecurity Answer Date Recorded Within the past 12 months, y ou worried that your food would run out before you got the money to buy more. Never true 09/08/19 24 Within the past 12 months, t he food you bought just didn't last and you didn't have money to get more. Never true 09/08/2023 Do you need food for this week? No 09/08/2023 Sex and Gender Information Value Date [...] doing errands alone such as visiting a doctor’s office or shopping? (15 years old or [...] Progress Notes * [facility] Fine [facility] Operator - 07/11/2024 3:13 PM EDT Telemedicine visit: No [facility] Fine Grade Operator (CONNER) documentation: CHW phoned pt to confirm visit later today with pt. Pt stated that was fine and stated anytime would work for him. CHW was on her way to another visit and asked if pt would be alright with a 10:30 or11:00 visit this morning. Pt confirmed that would be fine. documented in this encounter Plan of Treatment Upcoming Encounters Date Type Department Care Team (Late st Contact Info) Description 07/12/2024 6:00 PM EDT Anticoagulation [facility] Clinical Pharmacy Services, Renee Wise [address] [place] [address] [place] [address] [place] [address] 07/13/2024 7:35 AM EDT Laboratory Lab Mobile Phlebotomy [place] [address] [facility] [place] [address] [facility] Mobile Home Draw [address] [facility] [place], [place] [address] 07/14/2024 10:10 AM EDT Office Visit [facility] [address] [facility] [place] [phone] Sherry Maya DO [address] [place] [address] Scheduled Procedures Name Priority Associated Diagnoses Date/Ti [...] 2023 05/15/2021, 05/15/2021, 10/04/2020, Additional history exists Albumin/Creatinine Ratio 06/19/2024 024, 08/15/2022, 11/06/2021, Additional history exists Depression Monitoring 09/07/2024 09/08/2023 HbA1c 11/03/2024 05/06/2024, 080 11/2023, 08/05/2023, Additional history exists TSH 02/25/2025 02/26/2024, 06/2023, 09/24/2023, Additional history exists GFR 05/20/2025 05/20/2024, 04/28, 05/19/2024, Additional history exists DTap/Tdap Vaccines (3 - Td or Tdap) 12/13/2025 12/14/2015, 04/10/2008 Hepatitis B Vaccine Completed 11/16/2017, 07/14/2017, 05/14/2017 Zoster Vaccines Completed 04/10/2020, 01/17/2020 Diabetic Foot Exam Discontinued 08/16/2021, 0 05/02/2020, 11/08/2018, Additional history exists Diabetic Eye Exam Discontinued 06/06/2022, , 06/06/2022, Additional history exists Influenza Vaccine (FLU shot) Completed 02/18/2024, 01/23/2023, 01/23/2023, Additional history exists HPV (Gardasil) Vaccine Aged Out No lo nger eligible based on patient's age to complete this topic MENINGOCOCCAL (MENACTRA/MENVEO) Aged Out No longer eligible based on patient's age to complete this topic Meningitis B Vaccine (Bexsero/Trumemba) Aged Out No longer eligible based on [...] the patient have Health Care Power of Capacitor Inspector? Yes, not currently available * Full [...] Agents on File Name Relationship Healthcare Agent [facility] p Communication Omar Lyle Adult Child [facility] re Agent Xi Ontiverosrett Adult Child [facility] Care Agent Care Teams Chief Internal Auditor Relationship Specialty Start Date End Date Sherry Maya DO PCP - General Family Medicine 11/12/11 documented as of this encounter
--- OUTSIDE RECORDS SUMMARY | 2024-07-16 05:08 | External Medical Summary | Summary of Care ---
Author Name Unknown Organization [facility] Address [address] [facility] [place] [address] Phone [phone] Care Team Providers Care Utility Accounts Director Name Role Phone Sherry Maya DO Primary Care Provider [phone] Reason for Visit * Reason Comments Dosage Adjustment Via Phone (anticoag Cl inic) Encounter Details Date Type Department Care Team (Late st Contact Info) Description 07/12/2024 6:00 PM EDT Anticoagulation [facility], Renee Wise [address] [place] [address] [place] [address] [facility], [address] [place] [address] Anticoagulation management encounter* Allergies Active Allergy Reactions Criticality Noted Date Comments Benzonatate 12/08/2016 choking Keyanna Pedraza Other (Please comment) High 04/10/20 09 Choking documented as of this encounter (statuses as of 07/12/2024) Medications ONETOUCH LANCETS MISCIndications:DM type 2, not at goal ([facility]) 3 Box Dosing Unit 1 [...] mouth daily. 30 Cap 5 03/16/20 Active Additional Information Patient not taking.Reported on 07/11/2024 Glucose Blood (web care LBJ GmbHTOUCH VERIO) STRP USE TO TEST BLOOD GLUCOSE 8 TIMES A DAY 800 Strip 3 03/18/20 Active Insulin Aspart 100 UNIT/ML Injection Solution Inject under the skin. 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 Project # [id number], DATA SOFTWARE ENGINEER: Ben Hoover MD. CRC: DEBORAH Back. SUMMARY: To test the hypothesis that Evacetrapib 130 mg, in comparison to placebo, reduces the risk of major adverse coronary events in high-risk vascular disease patients. CONTACTS: During normal business hours, contact study staff at ; after hours Certified Medical Technician via the [facility] hospital call center operator [phone]. 24-hour Global Study Helpline: [phone]. Lipid levels should not be ordered/obtained while this subject is in the Accelerate study. Lipids are being managed in a blinded fashion. If lipid levels are inadvertently obtained, it is important that test results are NOT provided to the patient, study doctor, marketing production coordinator, or other study team members. Restricted meds while in the study: 1) niacin > 250 mg, 2) gemfibrozil with a potent [id number]. NINA on CPAP 06/28/2012 01/31/2020 Overview (06/28/2012): [...] as of this encounter (statuses as of 07/12/2024) Immunizations Name Administration Dates Next Due COVID-19 [...] Progress Notes * Jaimee Gandhi RPh - 07/12/2024 2:53 PM EDT Noted, pt has maintenace dose. Will follow up tomorrow for result Jaimee Gandhi Rph, Pharm.D. Clinical Pharmacist Centralized Clinical Pharmacy Services ([facility]) [phone] 07/12/2024,2:53 PM * Fabienne Beckwith [facility] - 07/12/2024 12:56 PM EDT Patient was not seen by [facility] today 07/12/2024, [facility] note for today states appt was cancelled due to coverage. Patient is on their schedule for 07/13/2024. Patient placed back on [facility] schedule for 07/13/2024 to follow up for results. Thank you, Fabienne Beckwith CPhT Seafood Farmer II [facility] ([facility]) 07/12/2024,12:58 PM documented in this encounter Plan of Treatment Upcoming Encounters Date Type Department Care Team (Late st Contact Info) Description 07/13/2024 7:35 AM EDT Laboratory Lab Mobile Phlebotomy [address] [place] [address] [facility] Mobile Home Draw [address] [place] [address] [place] [address] 07/13/2024 6:00 PM EDT Anticoagulation [facility] Clinical Pharmacy Services, Renee Wise [address] [place] [address] [place] [address] [facility], [address] [place] [address] 07/14/2024 10:10 AM EDT Office Visit [facility] [address] [facility] [place] [phone] Sherry Maya DO [address] [facility] [place] [address] Scheduled Procedures Name Priority Associated Diagnoses Date/Ti [...] 02/26/2024, 1006/2023, 09/24/2023, Additional history exists GFR 05/20/2025 05/20/2024, [...] the patient have Health Care Power of Leave Coordinator? Yes, not currently available * Full [...] Agents on File Name Relationship [facility] Lyle Adult Child [facility] re Agent Xi Lyle Adult Child Health Care Agent Care Teams Utility Accounts Director Relationship Specialty Start Date End Date Sherry Maya DO PCP - General Family Medicine 11/12/11 documented as of this encounter
--- OUTSIDE RECORDS SUMMARY | 2024-07-16 05:08 | External Medical Summary | Summary of Care ---
Author Name Unknown Organization [facility] Address [address] [facility] [place] [address] Phone [phone] Care Team Providers Care Printing Sales Representative Name Role Phone Sherry Maya DO Primary Care Provider [phone] Reason for Visit * Reason Comments Dosage Adjustment Via Phone (anticoag Cl inic) Encounter Details Date Type Department Care Team (Late st Contact Info) Description 07/13/2024 6:00 PM EDT Anticoagulation Centralized Clinical Pharmacy Services, Renee Wise [address] [place] [address] [place] [address] [facility], [address] [place] [address] Anticoagulation management encounter* Allergies Active Allergy Reactions Criticality Noted Date Comments Benzonatate 12/08/2016 choking Keyanna Pedraza Other (Please comment) High 04/10/20 09 Choking documented as of this encounter (statuses as of 07/13/2024) Medications ONETOUCH LANCETS MISCIndications:DM type 2, not at goal ([facility]) 3 Box Dosing Unit 1 04/17/20 [...] Patient not taking.Reported on 07/11/2024 Glucose Blood (WeOrder LTDTOUCH VERIO) STRP USE TO TEST BLOOD GLUCOSE 8 TIMES A DAY 800 Strip 3 03/18/20 Active Insulin Aspart 100 UNIT/ML Injection Solution Inject under the skin. 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 Project # [id number], FLEXIBLE SHAFT WINDER: Ben Hoover MD. CRC: DEBORAH Back. SUMMARY: To test the hypothesis that Evacetrapib 130 mg, in comparison to placebo, reduces the risk of major adverse coronary events in high-risk vascular disease patients. CONTACTS: During normal business hours, contact study staff at ; after hours Desilverizer via the [facility] hospital chemical treatment operator [phone]. 24-hour Global Study Helpline: [phone]. Lipid levels should not be ordered/obtained while this subject is in the Accelerate study. Lipids are being managed in a blinded fashion. If lipid levels are inadvertently obtained, it is important that test results are NOT provided to the patient, study doctor, insurance coordinator, or other study team members. Restricted meds while in the study: 1) niacin > 250 mg, 2) gemfibrozil with a potent [id number]. NINA on CPAP 06/28/2012 01/31/2020 Overview (06/28/2012): [...] as of this encounter (statuses as of 07/13/2024) Immunizations Name Administration Dates Next Due COVID-19 [...] Progress Notes * Fabienne Chan CPhT - 07/13/2024 1:32 PM EDT Contacts Contact Date/Time Type Contact Phone/Fax 07/13/2024 01:28 PM EDT Phone (Outgoing) Ben Lyle (Self) [phone] (M) Left Message - Left voicemail/ Outgoing voicemail identified the patient's phone number that is listed to call in chart Subjective Advised patient to contact Anticoagulation Clinic if any unusual bruising or bleeding, recent illness, changes in medication, or questions/concerns. PT/INR results, Coumadin dose instructions, and next PT/INR date communicated as noted by Pharmacist: Yes FABIENNE CHAN CPhT 07/13/2024, 1:32 PM * Jaimee Gandhi RPh - 07/13/2024 1:25 PM EDT Images from the original note were not included. Coumadin Clinic (region specific) Objective Current Warfarin Dose As of 07/13/2024 Warfarin maintenance plan: 2 mg (2 mg x 1) every day INR Result As of 07/13/2024 INR goal: 2.0-3.0 INR used for dosin.4 (07/13/2024) Assessment & Plan Warfarin Plan As of 07/13/2024 Full warfarin instructions: 07/13: 4 mg; Otherwise 2 mg every day Next INR check: 07/21/2024 Repeat PT/INR in 1 week(s) Weekly dose: not changed Additional Dosing Information: Description [facility] (patient has 5mg and 1mg tabs) Tech to contact patient with dose instructions as noted. Jaimee Gandhi RPh 07/13/2024, 1:26 PM documented in this encounter Plan of Treatment Upcoming Encounters Date Type Department Care Team (Late st Contact Info) Description 07/18/2024 12:00 PM EDT Office Visit [facility] [address] [facility] [place] [phone] Rasheed Lowery PA-C [address] [facility] [place] [address] 07/21/2024 7:05 AM EDT Laboratory Lab Mobile Phlebotomy [address] [place] [address] [facility] Mobile Home Draw [address] [place] [address] [place] [address] 07/22/2024 6:00 AM EDT Anticoagulation Centralized Clinical Pharmacy Services, Renee Wise [address] [place] [address] [place] [address] [facility], [address] [place] [address] Scheduled Procedures Name Priority Associated Diagnoses Date/Ti [...] 10/0 06/2023, 09/24/2023, Additional history exists GFR 05/20/2025 [...] the patient have Health Care Power of Commercial Credit Reviewer? Yes, not currently available * Full Code [...] Adult Child Health Care Agent Care Teams Printing Sales Representative Relationship Specialty Start Date End Date Kopinski, Sherry L, DO PCP - General Family Medicine 11/12/11 documented as of this encounter
--- OUTSIDE RECORDS SUMMARY | 2024-07-16 05:08 | External Medical Summary ---
Author Name Unknown Address Unknown Organization [facility] [address] [place] [address] Laboratory Report Ordering Provider Test Date Status ALIE ROPER 07/13/2024 07:33:00 Final Standing order for pt/inr. < br/>Please draw pt/inr every 1 to 4 weeks as requested
Results to [facility]

Warfarin Therapy
INR: 2.0-3.0 conventional anticoagulation
INR: 2.5-3.5 high intensity anticoagulation Observation Date Value Abnormality Reference (Units ) Status PT 07/13/2024 07:33:00 17.6 Above high normal 11 .6-15.2 (seconds) Final INR 07/13/2024 07:33:00 1.4 Above high normal 0. 8-1.2 Final Performing Location [facility] [place] [id number]
--- OUTSIDE RECORDS SUMMARY | 2024-07-16 05:09 | External Medical Summary | Summary of Care ---
Author Name Unknown Organization [facility] Address [address] [facility] [place] [address] Phone [phone] Care Team Providers Care Assistant Professor Of Life Sciences Name Role Phone Sherry Maya DO Primary Care Provider [phone] Reason for Visit * Reason Comments Dosage Adjustment Via Phone (anticoag Cl inic) Encounter Details Date Type Department Care Team (Late st Contact Info) Description 07/08/2024 6:45 AM EDT Anticoagulation Centralized Clinical Pharmacy Services, Renee Wise [address] [place] [address] [place] [address] [facility], [address] [place] [address] Anticoagulation management encounter* Allergies Active Allergy Reactions Criticality Noted Date Comments Benzonatate 12/08/2016 choking Keyanna Pedraza Other (Please comment) High 04/10/20 09 Choking documented as of this encounter (statuses as of 07/08/2024) Medications ONETOUCH LANCETS MISCIndications:DM type 2, not at goal ([facility]) 3 Box Dosing Unit 1 015 Active [...] daily. 30 Cap 5 Active Glucose Blood (SavaJe TechnologiesTOUCH VERIO) STRP USE TO TEST BLOOD GLUCOSE 8 TIMES A DAY 800 Strip 3 Active Insulin Aspart 100 UNIT/ML Injection Solution Inject under the skin. FOR USE IN PUMP Active BanksnobTouch Verio Flex System w/Device Kit Use as [...] PLANIndications:Hea rt failure, systolic, due to CAD ([facility] [...] below 100,DM type 2, not at goal ([facility]),Diabetic polyneuropathy associated with type 1 diabetes mellitus [...] to rash on legs 400 g 1 Active Omeprazole 20 MG Oral Capsule Delayed [...] before bedtime. 60 Tablet 2 024 Active Additional Information Patient taking differently:20 mEq Oral BID (.AM/PM),Taking 20 in morning and 40 meq in evening, Reported on 03/22/2024 DAPTOmycin 500 MG Intravenous Solution Reconstituted (Cubicin) Administer 500 mg intravenously in the morning. 024 Active Betamethasone Dipropionate 0.05 % External Cream (Diprosone) Apply topically to affected area 2 times a day. To affected area. 45 g 3 024 Active Clotrimazole 1 % External Cream (Lotrimin) Apply topically to stump area 2 times a day for 14 days. 60 g 1 04/28/19 25 12:23 PM EST 024 Active Betamethasone Dipropionate 0.05 % External Cream (Diprosone) Apply topically to affected area twice a day. 45 g 3 04/21/20 24 3:57 PM EST 024 Active Vitamin D (Ergocalciferol) 1.25 MG (35989 UT) Oral Capsule (Drisdol) TAKE ONE CAPSULE BY MOUTH EVERY WEEK 12 Capsule 024 Active Levothyroxine Sodium 88 MCG Oral Tablet (Levoxyl)Indication s:Hypothyroidism, unspecified type TAKE 1 TABLET BY MOUTH EVERY MORNING at least 30 minutes before breakfast or other meds 100 Tablet 024 Active Pregabalin 50 MG Oral Capsule (Lyrica)Indications :Diabetic polyneuropathy associated with type 2 diabetes mellitus ([facility]),S/P BKA (below knee amputation) unilateral, left (HCC),Leg wound, right, initial encounter Take 1 Capsule by mouth in the morning and 1 Capsule at noon and 1 Capsule before bedtime. 90 Capsule 024 Active Triamcinolone Acetonide 0.1 % External Lotion (Aristocort)Indicat ions:Other eczema Apply topically to affected area of dry skin on the lower legs and stump 2 times a day - avoid on open wounds. 60 mL 5 04/12/20 24 1:17 PM EST 024 Active tiZANidine HCl 4 MG Oral Tablet (Zanaflex) Take 1 Tablet by mouth every 8 hours as needed for Muscle spasms. 90 Tablet 024 Active oxyCODONE HCl 10 MG Oral Tablet (Roxicodone)Indicat ions:S/P BKA (below knee amputation) unilateral, left (HCC),Diabetic polyneuropathy associated with type 2 diabetes mellitus (HCC),Leg wound, right, initial encounter Take 1 Tablet by mouth every 8 hours as needed for Pain, Severe. 45 Tablet 025 Active Meropenem 1 GM Intravenous Solution Reconstituted (Merrem) Administer 1,000 mg intravenously in the morning and 1,000 mg at noon and 1,000 mg before bedtime. 024 07/08 Discontinued documented as of this encounter (statuses as of 07/08/2024) Active Problems Problem Noted Date Diagnosed Date [...] (07/04/2019): Added automatically from request for surgery [id number] 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 [...] as of this encounter (statuses as of 07/08/2024) Resolved Problems Problem Noted Date Diagnosed Date [...] Silent myocardial infarction 03/23/2013 11/08/2018 Accelerate Clinical Trial*[id number] 01/24/2013 05/16/2015 Overview (01/24/2013): ACCELERATE STUDY. Project # [id number], VARNISH THINNER: Ben Hoover MD. CRC: DEBORAH Back. SUMMARY: To test the hypothesis that Evacetrapib 130 mg, in comparison to placebo, reduces the risk of major adverse coronary events in high-risk vascular disease patients. CONTACTS: During normal business hours, contact study staff at ; after hours Clerical Specialist via the [facility] hospital shuttle car operator [phone]. 24-hour Global Study Helpline: [phone]. Lipid levels should not be ordered/obtained while this subject is in the Accelerate study. Lipids are being managed in a blinded fashion. If lipid levels are inadvertently obtained, it is important that test results are NOT provided to the patient, study doctor, delivery coordinator, or other study team members. Restricted meds while in the study: 1) niacin > 250 mg, 2) gemfibrozil with a potent [id number]. NINA on CPAP 06/28/2012 01/31/2020 Overview (06/28/2012): [...] as of this encounter (statuses as of 07/08/2024) Immunizations Name Administration Dates Next Due COVID-19 [...] Progress Notes * Jaimee Gandhi RPh - 07/08/2024 2:07 PM EDT [facility] [phone] Pt not currently admitted to [facility]. Spoke to patient and confirmed he is now home. Denies any concerns at this time. Taking 2mg daily. Repeat INR on 07/12 with [facility] Jaimee Gandhi Rph, Pharm.D. Clinical Pharmacist Centralized Clinical Pharmacy Services ([facility]) [phone] 07/08/2024,2:19 PM documented in this encounter Plan of Treatment Upcoming Encounters Date Type Department Care Team (Late st Contact Info) Description 07/11/2024 3:00 PM EDT Home Visit [facility] Coordination [facility] Integration [address] [place] [address] Edna Baum, [facility] Liquor Bridge Operator Helper [address] [place] [address] 07/12/2024 6:00 PM EDT Anticoagulation Centralized Clinical Pharmacy Services, Renee Wise [address] [place] [address] [place] [address] [facility], [facility] [address] [place] [address] 07/14/2024 10:10 AM EDT Office Visit Family [facility] [address] [facility] [place] [address] Sherry Maya DO [address] [place] [address] Scheduled Procedures Name Priority Associated Diagnoses Date/Ti [...] the patient have Health Care Power of Technical Project Manager? Yes, not currently available * Full [...] Relationshi p Communication Omar Lyle Adult Child [facility] re Agent [facility] Care Agent Care Teams Assistant Professor Of Life Sciences Relationship Specialty Start Date End Date Sherry Maya DO PCP - General Family Medicine 11/12/11 documented as of this encounter
--- OUTSIDE RECORDS SUMMARY | 2024-07-16 05:09 | External Medical Summary | Summary of Care ---
Author Name Unknown Organization [facility] Address [address] [facility] [address] Phone [phone] Care Team Providers Care Home Health Care Worker Name Role Phone Sherry Maya DO Primary Care Provider [phone] Reason for Visit * Reason Onset Date Comments Advice 07/04/2024 Encounter Details Date Type Department Care Team (Late st Contact Info) Description 07/04/2024 Telephone [facility]ad [address] [facility] [place] [address] Sherry Maya DO [address] [facility] [place] [address] Advice Allergies Active Allergy Reactions Criticality Noted Date Comments Benzonatate 12/08/2016 choking Keyanna Pedraza Other (Please comment) High 04/10/20 09 Choking documented as of this encounter (statuses as of 07/09/2024) Medications ONETOUCH LANCETS MISCIndications:DM type 2, not [...] Cap 5 03/16/20 17 Active Glucose Blood (License BuddyTOUCH VERIO) STRP USE TO TEST BLOOD GLUCOSE [...] 24 Active Vitamin D (Ergocalciferol) 1.25 MG (83522 UT) Oral Capsule (Drisdol) TAKE ONE CAPSULE [...] as of this encounter (statuses as of 07/09/2024) Active Problems Problem Noted Date Diagnosed Date [...] (07/04/2019): Added automatically from request for surgery [id number] 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 Project # [id number], ROUNDHOUSE SUPERVISOR: Ben Hoover MD. CRC: DEBORAH Back. SUMMARY: To test the hypothesis that Evacetrapib 130 mg, in comparison to placebo, reduces the risk of major adverse coronary events in high-risk vascular disease patients. CONTACTS: During normal business hours, contact study staff at ; after hours Woodworking Shop Laborer via the [facility] hospital stripping shovel operator [phone]. 24-hour Global Study Helpline: [phone]. Lipid levels should not be ordered/obtained while this subject is in the Accelerate study. Lipids are being managed in a blinded fashion. If lipid levels are inadvertently obtained, it is important that test results are NOT provided to the patient, study doctor, motion study engineer, or other study team members. Restricted meds while in the study: 1) niacin > 250 mg, 2) gemfibrozil with a potent [id number]. NINA on CPAP 06/28/2012 01/31/2020 Overview (06/28/2012): [...] as of this encounter (statuses as of 07/09/2024) Immunizations Name Administration Dates Next Due COVID-19 [...] No 09/08/2023 Does the household have a [facility] source of income? (Household - for [...] Telephone Encounter - Sherry Maya DO - 07/09/2024 12:01 PM EDT He has needed to be placed for a long time now, possibly a few years since his divorce and he has no family support. I just dont know if he is willing. He has an appt with me. * Telephone Encounter - Suzanne West LPN - 07/04/2024 1:57 PM EDT Spoke with Shalonda. When she was admitting patient she states that his living conditions "are not good". His wounds on his right leg were dripping blood. He has animals. He could not find his insulin pump. He did not have food. They had found insulin and he was in the process of finding insulin syringes when Shalonda left. They had reached out to him several times yesterday and were unsuccessful. She does not feel like his living conditions are safe. Shalonda states that she had found out after she called today that he is currently admitted to [facility]. * Telephone Encounter - Christianne Clarke OSA - 07/04/2024 9:31 AM EDT Shalonda from [facility] called she needs a call back from a nurse. She wants to discuss what she saw during admitting pt to . Waited 2 min on nurse line. Leave message if you don't get her, she will call back documented in this encounter Plan of Treatment Upcoming Encounters Date Type Department Care Team (Late st Contact Info) Description 07/11/2024 3:00 PM EDT Home Visit Care Coordination and Integration [address] [facility] [place] [address] Edna Baum, [facility] Health Mammalogy Teacher [address] [facility] [place] [address] 07/12/2024 6:00 PM EDT Anticoagulation Centralized Clinical Pharmacy Services, [place] Wise [address] [place] [address] [place] [address] [place] [address] 07/14/2024 10:10 AM EDT Office Visit [facility] [place] Patricia [address] [place] [address] Sherry Maya DO [address] [place] [id number] Scheduled Procedures Name Priority Associated Diagnoses Date/Ti [...] the patient have Health Care Power of Patent Prosecution Paralegal? Yes, not currently available * Full Code [...] Relationshi p Communication Omar Ontiverosrett Adult Child [facility] Health Ca re Agent Xi Lyle Adult Child Health Care Agent Care Teams Home Health Care Worker Relationship Specialty Start Date End Date Sherry Maya DO PCP - General Family Medicine 11/12/11 documented as of this encounter
--- OUTSIDE RECORDS SUMMARY | 2024-07-16 05:09 | External Medical Summary | Summary of Care ---
Author Name Unknown Organization [facility] Address [address] [place] [address] Phone [phone] Care Team Providers Care Slip Cover Sewer Name Role Phone Sherry Maya DO Primary Care Provider [phone] Encounter Details Date Type Department Care Team (Late st Contact Info) Description 07/11/2024 3:00 PM EDT Home Visit Care Coordination and Integration [address] [place] [address] Edna Baum, [facility] Health Manager Concrete [address] [place], [place] [id number] Allergies Active Allergy Reactions Criticality Noted Date [...] Patient not taking.Reported on 07/11/2024 Glucose Blood (CurazyTOUCH VERIO) STRP USE TO TEST BLOOD GLUCOSE [...] 24 Active Vitamin D (Ergocalciferol) 1.25 MG (54858 UT) Oral Capsule (Drisdol) TAKE ONE CAPSULE [...] (07/04/2019): Added automatically from request for surgery [id number] 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 Project # [id number], CONTRACT PARALEGAL: Ben Hoover MD. CRC: DEBORAH Back. SUMMARY: To test the hypothesis that Evacetrapib 130 mg, in comparison to placebo, reduces the risk of major adverse coronary events in high-risk vascular disease patients. CONTACTS: During normal business hours, contact study staff at ; after hours Sorting And Folding Supervisor via the [facility] hospital boxer operator [phone]. 24-hour Global Study Helpline: [phone]. Lipid levels should not be ordered/obtained while this subject is in the Accelerate study. Lipids are being managed in a blinded fashion. If lipid levels are inadvertently obtained, it is important that test results are NOT provided to the patient, study doctor, occupational health coordinator, or other study team members. Restricted meds while in the study: 1) niacin > 250 mg, 2) gemfibrozil with a potent [id number]. NINA on CPAP 06/28/2012 01/31/2020 Overview (06/28/2012): [...] No 09/08/2023 Does the household have a [facility] source of income? (Household - for [...] Sign Reading Time Taken Comments Blood Pressure 120/82 07/11/2024 2:38 PM EDT Pulse 80 07/11/2024 2:38 PM EDT Temperature 37.2 °C (99 °F) 07/11/2024 2:38 PM EDT Respiratory Rate - - Oxygen Saturation 98% 07/11/2024 2:38 PM EDT Inhaled Oxygen Concentration - - Weight - [...] Progress Notes * Edna Baum, Community Health Manager Concrete - 07/11/2024 2:39 PM EDT Telemedicine visit: No Community Health Manager Concrete (CONNER) documentation: CHW cold visit scheduled, however, CHW phoned pt this morning and spoke with him to let him know CHW was coming for visit. Pt stated CHW could come at anytime today. CHW arrived at pt's home. This pt is very familiar to pt. Access through back door. Pt has 2 dogs that he has no control over what so ever. Dogs jumped all over CHW, with dirty, muddy paws inside thehome. CHW had a difficult time due to the dogs barking and jumping. Pt is in his power chair when CHW arrived. Pt is at edge of seat and he states he is unable to pushhimself back and that he keeps sliding forward. Pt states his leg is swollen and he can't wear his prosthesis. He said it wasn't swollen in the hospital. He insists there is something wrong that the doctors weren't recognizing. He doesn't understand why when he goes home his leg starts swelling andlooks like he has cellulitis. CHW explained that at home everything isn't clean and sterile. Pt's home is very dirty and unkept. The dogs are licking and jumping all over the place. They have a doggydoor to access out side and come in with muddy paws and jump up. Pt has trash and old food sitting around. Pt states he doesn't think that is what is going on. Again the CHW attempted to explain thatwhen pt is in facility he has assistance with everything and at home he is on his own. Again he disagreed. Pt stated he ordered food and it was delivered. Pt states he isn't able to transfer at home, even though at the hospital he was able to complete transfers. CHW isn't sure if he transferred at the hospital or if they allowed him to remain in his bed. CHW completed a medication rec. No discrepancies. CHW made sure pt called for transportation to his medical appointment this week and got that scheduled while CHW was present. CHW was in contact with CM throughout visit. documented in this encounter Plan of Treatment Upcoming Encounters Date Type Department Care Team (Late st Contact Info) Description 07/12/2024 6:00 PM EDT Anticoagulation Centralized Clinical Pharmacy Services, Renee Wise [address] [place] [address] [place] [address] [facility], [address] [place] [address] 07/13/2024 7:35 AM EDT Laboratory Lab Mobile Phlebotomy [place] [id number] [place] [address] [place], [facility] Mobile Home Draw [address] [place] [address] 07/14/2024 10:10 AM EDT Office Visit [facility] [address] [place] [phone] Sherry Maya DO [address] [place] [address] Scheduled Procedures Name Priority Associated Diagnoses Date/Ti [...] the patient have Health Care Power of Hospitality House Supervisor? Yes, not currently available * Full Code [...] File Name Relationship [facility] Maurymemo Valdo Adult Child [facility] re Agent Xi Lyle Adult Child [facility] Care Agent Care Teams Slip Cover Sewer Relationship Specialty Start Date End Date Sherry Maya DO PCP - General Family Medicine 11/12/11 documented as of this encounter
--- OUTSIDE RECORDS SUMMARY | 2024-07-16 05:09 | External Medical Summary | Summary of Care ---
Author Name Unknown Organization [facility] Address [address] [facility] [place] [address] Phone [phone] Care Team Providers Care Hand Spring Repairer Name Role Phone Sherry Maya DO Primary Care Provider [phone] Reason for Visit * Reason Comments Dosage Adjustment Via Phone (anticoag Cl inic) Encounter Details Date Type Department Care Team (Late st Contact Info) Description 07/01/2024 6:45 AM EST Anticoagulation Centralized Clinical Pharmacy Services, Renee Wise [address] [place] [address] [place] [address] [facility], [address] [place] [address] Anticoagulation management encounter* Allergies Active Allergy Reactions Criticality Noted Date Comments Benzonatate 12/08/2016 choking Keyanna Pedraza Other (Please comment) High 04/10/20 09 Choking documented as of this encounter (statuses as of 07/01/2024) Medications ONETOUCH LANCETS MISCIndications:DM type 2, not [...] Cap 5 03/16/20 17 Active Glucose Blood (staila technologiesTOUCH VERIO) STRP USE TO TEST BLOOD GLUCOSE 8 TIMES A DAY 800 Strip 3 03/18/20 19 Active Insulin Aspart 100 UNIT/ML Injection Solution Inject under the skin. FOR USE IN PUMP Active PaintZenTouch Verio Flex System w/Device Kit Use as [...] 24 Active Vitamin D (Ergocalciferol) 1.25 MG (50682 UT) Oral Capsule (Drisdol) TAKE ONE CAPSULE [...] as of this encounter (statuses as of 07/01/2024) Active Problems Problem Noted Date Diagnosed Date [...] (07/04/2019): Added automatically from request for surgery [id number] 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 [...] as of this encounter (statuses as of 07/01/2024) Resolved Problems Problem Noted Date Diagnosed Date [...] Silent myocardial infarction 03/23/2013 11/08/2018 Accelerate Clinical Trial*[id number] 01/24/2013 05/16/2015 Overview (01/24/2013): ACCELERATE STUDY. Project # [id number], MATERIAL PLANNING ANALYST: Ben Hoover MD. CRC: DEBORAH Back. SUMMARY: To test the hypothesis that Evacetrapib 130 mg, in comparison to placebo, reduces the risk of major adverse coronary events in high-risk vascular disease patients. CONTACTS: During normal business hours, contact study staff at ; after hours Fur Finisher Tailor via the [facility] hospital back shoe operator [phone]. 24-hour Global Study Helpline: [phone]. Lipid levels should not be ordered/obtained while this subject is in the Accelerate study. Lipids are being managed in a blinded fashion. If lipid levels are inadvertently obtained, it is important that test results are NOT provided to the patient, study doctor, marketing database coordinator, or other study team members. Restricted meds while in the study: 1) niacin > 250 mg, 2) gemfibrozil with a potent [id number]. NINA on CPAP 06/28/2012 01/31/2020 Overview (06/28/2012): [...] as of this encounter (statuses as of 07/01/2024) Immunizations Name Administration Dates Next Due COVID-19 [...] Progress Notes * Jaimee Gandhi RPh - 07/01/2024 8:42 AM EST Pt remains admitted to [facility]. Per CM notes, home /[facility] Care at discharge. [facility] will continue to follow up. Jaimee Gandhi Rph, Pharm.D. Clinical Pharmacist Centralized Clinical Pharmacy Services ([facility]) [phone] 07/01/2024,8:42 AM documented in this encounter Plan of Treatment Upcoming Encounters Date Type Department Care Team (Late st Contact Info) Description 07/04/2024 6:45 AM EDT Anticoagulation Centralized Clinical Pharmacy Services, Renee Wise [address] [place] [address] [place] [address] [place] [address] 07/11/2024 9:50 AM EDT Office Visit [facility] [address] [facility] [place] [phone] Sherry Maya DO 226 [facility] [place] [place] [address] Scheduled Procedures Name Priority Associated Diagnoses Date/Ti [...] the patient have Health Care Power of Robotic Maintenance Technician? Yes, not currently available * Full [...] [facility] re Agent Xi Lyle Adult Child [facility] Care Agent Care Teams Hand Spring Repairer Relationship Specialty Start Date End Date Sherry Maya DO PCP - General Family Medicine 11/12/11 documented as of this encounter
--- OUTSIDE RECORDS SUMMARY | 2024-07-16 05:09 | External Medical Summary | Summary of Care ---
Author Name Unknown Organization [facility] Address [address] [facility] [place] [address] Phone [phone] Care Team Providers Care Shipping And Receiving Associate Name Role Phone Sherry Maya DO Primary Care Provider [phone] Reason for Visit * Reason Comments Dosage Adjustment Via Phone (anticoag Cl inic) Encounter Details Date Type Department Care Team (Late st Contact Info) Description 07/04/2024 6:45 AM EDT Anticoagulation Centralized Clinical Pharmacy Services, Renee Wise [address] [place] [address] [place] [address] [facility], [address] [place] [address] Anticoagulation management encounter* Allergies Active Allergy Reactions Criticality Noted Date Comments Benzonatate 12/08/2016 choking Keyanna Pedraza Other (Please comment) High 04/10/20 09 Choking documented as of this encounter (statuses as of 07/04/2024) Medications ONETOUCH LANCETS MISCIndications:DM type 2, not at goal ([facility]) 3 Box Dosing Unit 1 04/17/20 15 [...] Cap 5 03/16/20 17 Active Glucose Blood (BookingBugTOUCH VERIO) STRP USE TO TEST BLOOD GLUCOSE 8 TIMES A DAY 800 Strip 3 03/18/20 Active Insulin Aspart 100 UNIT/ML Injection Solution Inject under the skin. FOR USE IN PUMP Active NanotionTouch Verio Flex System w/Device Kit Use as [...] 24 Active Vitamin D (Ergocalciferol) 1.25 MG (83422 UT) Oral Capsule (Drisdol) TAKE ONE CAPSULE [...] as of this encounter (statuses as of 07/04/2024) Active Problems Problem Noted Date Diagnosed Date [...] (07/04/2019): Added automatically from request for surgery [id number] 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 [...] as of this encounter (statuses as of 07/04/2024) Resolved Problems Problem Noted Date Diagnosed Date [...] Silent myocardial infarction 03/23/2013 11/08/2018 Accelerate Clinical Trial*[id number] 01/24/2013 05/16/2015 Overview (01/24/2013): ACCELERATE STUDY. Project # [id number], SQL DATABASE DEVELOPER: Ben Hoover MD. CRC: DEBORAH Back. SUMMARY: To test the hypothesis that Evacetrapib 130 mg, in comparison to placebo, reduces the risk of major adverse coronary events in high-risk vascular disease patients. CONTACTS: During normal business hours, contact study staff at ; after hours Floor Associate via the [facility] hospital slab miller operator [phone]. 24-hour Global Study Helpline: [phone]. Lipid levels should not be ordered/obtained while this subject is in the Accelerate study. Lipids are being managed in a blinded fashion. If lipid levels are inadvertently obtained, it is important that test results are NOT provided to the patient, study doctor, craft coordinator, or other study team members. Restricted meds while in the study: 1) niacin > 250 mg, 2) gemfibrozil with a potent [id number]. NINA on CPAP 06/28/2012 01/31/2020 Overview (06/28/2012): [...] as of this encounter (statuses as of 07/04/2024) Immunizations Name Administration Dates Next Due COVID-19 [...] 09/08/2023 Does the household have a [facility] source of income? (Household - for [...] in this encounter Progress Notes * Jaimee Gandhi, [facility] - 07/04/2024 10:15 AM EDT Medication Therapy Disease Management - Anticoagulation Patient: Ben Lyle | : 1965 Subjective Contacts Contact Date/Time Type Contact Phone/Fax 07/04/2024 04:45 AM EDT Email SMS () [phone] Patient not accepting updates 07/04/2024 10:16 AM EDT Phone (Outgoing) Ben Lyle (Self) [phone] (M) Left Message Patient-Reported Symptoms: Patient Findings Positives: Hospital admission Negatives: Signs/symptoms of thrombosis, Signs/symptoms of bleeding, Change in health, Change in alcohol use, Change in activity, Upcoming invasive procedure, Missed doses, Extra doses, Change in medications, Change in diet/appetite, Bruising Comments: Pt was discharged from [facility] to home. Pt was admitted for Cellulitis. Pertinent medications changes none. INR at discharge was 2.1. Pt was provided the following directions at discharge: 2mg daily Objective Current Warfarin Dose As of 07/04/2024 Warfarin maintenance plan: 2 mg (2 mg x 1) every day INR Result As of 07/04/2024 INR goal: 2.0-3.0 INR used for dosing: No new INR was available at the time of this encounter. Assessment & Plan Warfarin Plan As of 07/04/2024 Full warfarin instructions: 2 mg every day Next INR check: 07/07/2024 Repeat PT/INR in 3 day(s) Weekly dose: not changed Additional Dosing Information: [facility]patient has 5mg and 1mg tabs) Jaimee Gandhi [facility] Clinical Pharmacist 07/04/2024, 10:15 AM documented in this encounter Plan of Treatment Upcoming Encounters Date Type Department Care Team (Late st Contact Info) Description 07/06/2024 7:50 AM EDT Laboratory Lab Mobile Phlebotomy [address] [place] [address] [facility] Mobile Home Draw [address] [place] [address] [place] [address] 07/07/2024 6:00 PM EDT Anticoagulation Centralized Clinical Pharmacy Services, Renee Wise [address] [place] [address] [place] [address] [place] [address] 07/11/2024 9:50 AM EDT Office Visit [facility] [address] [place] [phone] Sherry Maya DO 226 [place] [address] Scheduled Procedures Name Priority Associated Diagnoses Date/Ti [...] the patient have Health Care Power of Farmworker Egg Producing Farm? Yes, not currently available * Full Code [...] Relationshi p Communication Maurymemo Lyle Adult Child [facility] re Agent Xi Ontiverosrett Adult Child Health Care Agent Care Teams Shipping And Receiving Associate Relationship Specialty Start Date End Date Sherry Maya DO PCP - General Family Medicine 11/12/11 documented as of this encounter"
--- OUTSIDE RECORDS SUMMARY | 2024-07-16 05:09 | External Medical Summary | Summary of Care ---
Author Name Unknown Organization [facility] Address [address] [facility] [place] [address] Phone [phone] Care Team Providers Care Pivot End Polisher Name Role Phone Sherry Maya DO Primary Care Provider [phone] Reason for Visit * Reason Comments Dosage Adjustment Via Phone (anticoag Cl inic) Encounter Details Date Type Department Care Team (Late st Contact Info) Description 07/07/2024 6:00 PM EDT Anticoagulation Centralized Clinical Pharmacy Services, Renee Wise [address] [place] [address] [place] [address] [facility], [address] [place] [address] Anticoagulation management encounter* Allergies Active Allergy Reactions Criticality Noted Date Comments Benzonatate 12/08/2016 choking Keyanna Pedraza Other (Please comment) High 04/10/20 09 Choking documented as of this encounter (statuses as of 07/08/2024) Medications ONETOUCH LANCETS MISCIndications:DM type 2, not at goal ([facility]) 3 Box Dosing Unit 1 04/17/20 15 [...] Cap 5 03/16/20 17 Active Glucose Blood ([employer] Resource [employer] CorporationTOUCH VERIO) STRP USE TO TEST BLOOD GLUCOSE 8 TIMES A DAY 800 Strip 3 03/18/20 Active Insulin Aspart 100 UNIT/ML Injection Solution Inject under the skin. FOR USE IN PUMP Active MoobiaTouch Verio Flex System w/Device Kit Use as [...] PLANIndications:Hear t failure, systolic, due to CAD ([facility]) If [...] 24 Active Vitamin D (Ergocalciferol) 1.25 MG (61534 UT) Oral Capsule (Drisdol) TAKE ONE CAPSULE [...] (07/04/2019): Added automatically from request for surgery [id number] 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 [...] Silent myocardial infarction 03/23/2013 11/08/2018 Accelerate Clinical Trial*[id number] 01/24/2013 05/16/2015 Overview (01/24/2013): ACCELERATE STUDY. Project # [id number], CONFIDENTIAL INVESTIGATOR: Ben Hoover MD. CRC: DEBORAH Back. SUMMARY: To test the hypothesis that Evacetrapib 130 mg, in comparison to placebo, reduces the risk of major adverse coronary events in high-risk vascular disease patients. CONTACTS: During normal business hours, contact study staff at ; after hours Loss Prevention Lead via the [facility] hospital mini lab operator [phone]. 24-hour Global Study Helpline: [phone]. Lipid levels should not be ordered/obtained while this subject is in the Accelerate study. Lipids are being managed in a blinded fashion. If lipid levels are inadvertently obtained, it is important that test results are NOT provided to the patient, study doctor, milieu coordinator, or other study team members. Restricted meds while in the study: 1) niacin > 250 mg, 2) gemfibrozil with a potent [id number]. NINA on CPAP 06/28/2012 01/31/2020 Overview (06/28/2012): [...] Progress Notes * Jaimee Gandhi RPh - 07/07/2024 1:48 PM EDT Noted [facility] will follow up at discharge Jaimee Gandhi Rph, Pharm.D. Clinical Pharmacist Centralized Clinical Pharmacy Services ([facility]) [phone] 07/07/2024,1:48 PM * Ina Simon CPhT - 07/07/2024 1:04 PM EDT Pt was on GML schedule for today, but the appt was cx'd due to "coverage". Reached out to client services and they state the pt is admitted at [place]. Ina Simon CPhT Packaging Clerk II Centralized Clinical Pharmacy Services [address] [place] [address] Dr. Val[address]a [address] [place] [address] [id number] 07/07/2024 1:05 PM documented in this encounter Plan of Treatment Upcoming Encounters Date Type Department Care Team (Late st Contact Info) Description 07/08/2024 6:45 AM EDT Anticoagulation Centralized Clinical Pharmacy Services, Renee Wise [address] [place] [address] [place] [address] [facility], [address] [place] [address] 07/11/2024 9:50 AM EDT Office Visit [facility] [address] [facility] [place] [phone] Sherry Maya DO [address] [facility] [place] [address] Scheduled Procedures Name Priority Associated Diagnoses Date/Ti [...] the patient have Health Care Power of Rodding Anode Worker? Yes, not currently available * Full [...] Adult Child [facility] re Agent [facility] Care Agent Care Teams Pivot End Polisher Relationship Specialty Start Date End Date Sherry Maya DO PCP - General Family Medicine 11/12/11 documented as of this encounter
--- OUTSIDE RECORDS SUMMARY | 2024-07-16 05:10 | External Medical Summary | Summary of Care ---
Author Name Unknown Organization [facility] Address [address] [facility] [place] [address] Phone [phone] Care Team Providers Care Table Attendant Name Role Phone Sherry Maya DO Primary Care Provider [phone] Reason for Visit * Reason Comments Dosage Adjustment Via Phone (anticoag Cl inic) Encounter Details Date Type Department Care Team (Late st Contact Info) Description 06/29/2024 6:45 AM EST Anticoagulation Centralized Clinical Pharm[facility] Services, Renee Wise [address] [place] [address] [place] [address] [facility], [address] [place] [address] Anticoagulation management encounter* Allergies Active Allergy Reactions Criticality Noted Date Comments Benzonatate 12/08/2016 choking Keyanna Pedraza Other (Please comment) High 04/10/20 09 Choking documented as of this encounter (statuses as of 06/29/2024) Medications ONETOUCH LANCETS MISCIndications:DM type 2, not [...] Cap 5 03/16/20 17 Active Glucose Blood (InfiniaTOUCH VERIO) STRP USE TO TEST BLOOD GLUCOSE 8 TIMES A DAY 800 Strip 3 03/18/20 19 Active Insulin Aspart 100 UNIT/ML Injection Solution Inject under the skin. FOR USE IN PUMP Active TubisTouch Verio Flex System w/Device Kit Use as [...] t failure, systolic, due to CAD (FORMERLY MEDICAL [...] 24 Active Vitamin D (Ergocalciferol) 1.25 MG (41037 UT) Oral Capsule (Drisdol) TAKE ONE CAPSULE [...] as of this encounter (statuses as of 06/29/2024) Active Problems Problem Noted Date Diagnosed Date [...] (07/04/2019): Added automatically from request for surgery [id number] 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 [...] as of this encounter (statuses as of 06/29/2024) Resolved Problems Problem Noted Date Diagnosed Date [...] Silent myocardial infarction 03/23/2013 11/08/2018 Accelerate Clinical Trial*[id number] 01/24/2013 05/16/2015 Overview (01/24/2013): ACCELERATE STUDY. Project # [id number], LEARNING CENTER COORDINATOR: Ben Hoover MD. CRC: DEBORAH Back. SUMMARY: To test the hypothesis that Evacetrapib 130 mg, in comparison to placebo, reduces the risk of major adverse coronary events in high-risk vascular disease patients. CONTACTS: During normal business hours, contact study staff at ; after hours Bag Mender via the [facility] hospital rip saw operator [phone]. 24-hour Global Study Helpline: [phone]. Lipid levels should not be ordered/obtained while [...] 250 mg, 2) gemfibrozil with a potent [id number]. NINA on CPAP 06/28/2012 01/31/2020 Overview (06/28/2012): [...] as of this encounter (statuses as of 06/29/2024) Immunizations Name Administration Dates Next Due COVID-19 [...] No 09/08/2023 Does the household have a [facility] hospit[facility] source of income? (Household - [...] Progress Notes * Jaimee Gandhi RPh - 06/29/2024 12:26 PM EST Pt remains admitted to [facility]. Will follow up for discharge plans, looks like Home w/ [place] Jaimee Gandhi Rph, Pharm.D. Clinical Pharmacist Centralized Clinical Pharmacy Services ([facility]) [phone] 06/29/2024,12:27 PM documented in this encounter Plan of Treatment Upcoming Encounters Date Type Department Care Team (Late st Contact Info) Description 07/01/2024 6:45 AM EST Anticoagulation [facility] Clinical Pharmacy Services, Renee Wise [address] [place] [address] [place] [address] [facility], [address] [place] [address] 07/11/2024 9:50 AM EDT Office Visit [facility][1], [facility] [address] [facility] [place] [phone] Sherry Maya DO [address] [place] [address] Scheduled Procedures Name Priority Associated Diagnoses Date/Ti [...] the patient have Health Care Power of School Community Relations Coordinator? Yes, not currently available * Full [...] Relationshi p Communication Omar Lyle Adult Child [facility] Agent [facility] Care Agent Care Teams Table Attendant Relationship Specialty Start Date End Date Sherry Maya DO PCP - General Family Medicine 11/12/11 documented as of this encounter
--- OUTSIDE RECORDS SUMMARY | 2024-07-16 05:10 | External Medical Summary | Summary of Care ---
Author Name Unknown Organization [facility] Address [address] [facility] [place] [address] Phone [phone] Care Team Providers Care K 9 Handler/ Deputy Name Role Phone Sherry Maya DO Primary Care Provider [phone] Reason for Visit * Reason Onset Date Comments Advice 03/18/2024 Encounter Details Date Type Department Care Team ([facility] st Contact Info) Description 03/18/2024 Telephone [facility] DEPT CLOSED - 04/14/24 [address] [place] [phone] Sherry Maya DO [address] [facility] [place] [address] Advice Allergies Active Allergy Reactions Criticality Noted Date Comments Benzonatate 12/08/2016 choking Keyanna Pedraza Other (Please comment) High 04/10/20 09 Choking documented as of this encounter (statuses as of 06/18/2024) Medications ONETOUCH LANCETS MISCIndications:DM type 2, not at goal ([facility]) 3 Box Dosing Unit 1 015 Active Nitroglycerin 0.4 MG Sublingual Tablet Sublingual Place under the tongue every 5 minutes as needed. Up to 3 in 15 minutes. 25 Tab 11 015 Active Magnesium Oxide 400 MG CapsuleIndications: Heart failure, systolic, due to CAD ([facility]),Automatic implantable cardioverter-defibr illator in situ,Chronic ischemic heart [...] PLANIndications:Hea rt failure, systolic, due to CAD ([facility]) If [...] noon and 1,000 mg before bedtime. Active Levothyroxine Sodium 88 MCG Oral Tablet (Levoxyl)Indication s:Hypothyroidism, unspecified type TAKE ONE TABLET BY MOUTH IN THE MORNING AT LEAST 30 MINS PRIOR TO BREAKFAST OR OTHER MEDS 100 Tablet 5 023 04/03 Discontinued Triamcinolone Acetonide 0.1 % External Lotion (Aristocort)Indicat ions:Other eczema Apply topically to affected area 2 times a day. To dry skin on the lower legs and stump. Avoid on open wounds 60 mL 5 024 04/12 Discontinued( Refill) Pregabalin 50 MG Oral Capsule (Lyrica)Indications :Diabetic polyneuropathy associated with type 2 diabetes mellitus (HCC),S/P BKA (below knee amputation) unilateral, left (HCC),Leg wound, right, initial encounter Take 1 Capsule by mouth in the morning and 1 Capsule at noon and 1 Capsule before bedtime. 60 Capsule 024 04/02 Discontinued( Refill) Vitamin D (Ergocalciferol) 1.25 MG (55784 UT) Oral Capsule (Drisdol) TAKE ONE CAPSULE [...] as of this encounter (statuses as of 06/18/2024) Active Problems Problem Noted Date Diagnosed Date [...] (07/04/2019): Added automatically from request for surgery [id number] 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 [...] as of this encounter (statuses as of 06/18/2024) Resolved Problems Problem Noted Date Diagnosed Date [...] Silent myocardial infarction 03/23/2013 11/08/2018 Accelerate Clinical Trial*[id number] 01/24/2013 05/16/2015 Overview (01/24/2013): ACCELERATE STUDY. Project # [id number], DIRECTIONAL DRILLER: Ben Hoover MD. CRC: DEBORAH Back. SUMMARY: To test the hypothesis that Evacetrapib 130 mg, in comparison to placebo, reduces the risk of major adverse coronary events in high-risk vascular disease patients. CONTACTS: During normal business hours, contact study staff at ; after hours Acquisitions Assistant via the [facility] hospital diesel truck crane operator [phone]. 24-hour Global Study Helpline: [phone]. Lipid levels should not be ordered/obtained while this subject is in the Accelerate study. Lipids are being managed in a blinded fashion. If lipid levels are inadvertently obtained, it is important that test results are NOT provided to the patient, study doctor, community sports coordinator, or other study team members. Restricted meds while in the study: 1) niacin > 250 mg, 2) gemfibrozil with a potent [id number]. NINA on CPAP 06/28/2012 01/31/2020 Overview (06/28/2012): [...] as of this encounter (statuses as of 06/18/2024) Immunizations Name Administration Dates Next Due COVID-19 [...] encounter Miscellaneous Notes * Telephone Encounter - Ulises Kelly LPN - 03/23/2024 11:05 AM EST Nora calling in from [facility] pharmacy. She states patient was discharged from [facility] on 02/17 with IV antibiotics via PICC line for rt heel osteomyelitis. Daptomycin and Meropenem was to be discontinued on 03/23/24. Requesting D/C orders for PICC line and IV antibiotic or order to continue IV antibiotics or care for PICC line care site[phone] See mychart message from 03/21-"not sure he is ready to come off of the antibiotics". Seen on 02/28 for Hospital F/u ID follow up on 05/11/2024 Please advice * Telephone Encounter - Evita Cifuentes CPhT - 03/23/2024 10:42 AM EST Nora is calling to follow up on previous messages since the pt is to stop meds today. Attempted totransfer caller over to the clinic to get additional assistance. Thank you, Amber Cifuentes CPhT Driver Starting Gate [facility] Central[facility] Clinical Pharmacy Services ([facility]) 03/23/2024,10:42 AM * Telephone Encounter - Reny Garcia LPN - 03/22/2024 1:14 PM EST Becki calling from [facility] about IV antibiotics. Wanted to confirm that the IV stops tomorrow and then the PICC line is removed. * Telephone Encounter - Shani Valdes OSA - 03/21/2024 10:22 AM EST Becki from [facility] is calling for any update on the previous msg that was put in about the pt's iv antibiotics as the order is to discontinue on 03/23/24, can someone please reach out to her. * Telephone Encounter - Deisy Saleem OSA - 03/18/2024 10:23 AM EST Ms. Timmons from [facility] called stating that pt was discharged from [facility] w/ Orders for IV antibiotics. Ms. Valencia advised last day of antibiotics are scheduled for 03.23.24 and PICC line is to be discontinued after. Ms. Valencia is requesting a call back to clarify w/ PCP if ok tocomplete as ordered or if continued therapy and iv access with still be needed. Thank You! documented in this encounter Plan of Treatment Upcoming Encounters Date Type Department Care Team (Late st Contact Info) Description 06/20/2024 6:45 AM EST Anticoagulation [facility] Clinical Pharmacy Services, Renee Wise [address] [place] [address] [place] [address] [place] [address] 07/11/2024 9:50 AM EDT Office Visit [address] [place] [phone] Sherry Maya DO [address] [place] [address] Scheduled Procedures Name Priority Associated Diagnoses Date/Ti [...] the patient have Health Care Power of Trolley Car Operator? Yes, not currently available * Full [...] p Communication Omar Lyle Adult Child [facility] Health Ga re Agent Xi Lyle Adult Child Health Care Agent Care Teams K 9 Handler/ Deputy Relationship Specialty Start Date End Date Sherry Maya DO PCP - General Family Medicine 11/12/11 documented as of this encounter
--- OUTSIDE RECORDS SUMMARY | 2024-07-16 05:10 | External Medical Summary | Summary of Care ---
Author Name Unknown Organization [facility] Address [address] [facility] [place] [address] Phone [phone] Care Team Providers Care Counselor Aid Name Role Phone Shrery Maya DO Primary Care Provider [phone] Reason for Visit * Reason Comments Dosage Adjustment Via Phone (anticoag Cl inic) Encounter Details Date Type Department Care Team (Late st Contact Info) Description 06/10/2024 6:45 AM EST Anticoagulation Centralized Clinical Pharmacy Services, Renee Wise [address] [place] [address] [place] [address] [facility], [address] [place] [address] Anticoagulation management encounter* Allergies Active Allergy Reactions Criticality Noted Date Comments Benzonatate 12/08/2016 choking Keyanna Pedraza Other (Please comment) High 04/10/20 09 Choking documented as of this encounter (statuses as of 06/10/2024) Medications ONETOUCH LANCETS MISCIndications:DM type 2, not at goal ([facility]) 3 Box Dosing Unit 1 04/17/20 15 [...] Cap 5 03/16/20 17 Active Glucose Blood (Maison AcademiaTOUCH VERIO) STRP USE TO TEST BLOOD GLUCOSE 8 TIMES A DAY 800 Strip 3 03/18/20 19 Active Insulin Aspart 100 UNIT/ML Injection Solution Inject under the skin. FOR USE IN PUMP Active Chelsio CommunicationsTouch Verio Flex System w/Device Kit Use as [...] unspecified chronicity,Heart failure, systolic, due to CAD ([facility]) Bariatric heavy duty walker- 2 wheels- please document patient's weight at 308 1 Each 02/08/20 Active DIURETIC TITRATION PLANIndications:Hear t failure, systolic, due to CAD ([facility]) If no improvement on day 3, [...] 24 Active Vitamin D (Ergocalciferol) 1.25 MG (61628 UT) Oral Capsule (Drisdol) TAKE ONE CAPSULE [...] as of this encounter (statuses as of 06/10/2024) Active Problems Problem Noted Date Diagnosed Date [...] (07/04/2019): Added automatically from request for surgery [id number] 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 Project # [id number], CORE WORKER: Ben Hoover MD. CRC: DEBORAH Back. SUMMARY: To test the hypothesis that Evacetrapib 130 mg, in comparison to placebo, reduces the risk of major adverse coronary events in high-risk vascular disease patients. CONTACTS: During normal business hours, contact study staff at ; after hours Power Grader Operator via the [facility] hospital molding press operator [phone]. 24-hour Global Study Helpline: [phone]. Lipid levels should not be ordered/obtained while this subject is in the Accelerate study. Lipids are being managed in a blinded fashion. If lipid levels are inadvertently obtained, it is important that test results are NOT provided to the patient, study doctor, global coordinator, or other study team members. Restricted meds while in the study: 1) niacin > 250 mg, 2) gemfibrozil with a potent [id number]. NINA on CPAP 06/28/2012 01/31/2020 Overview (06/28/2012): [...] as of this encounter (statuses as of 06/10/2024) Immunizations Name Administration Dates Next Due COVID-19 [...] Progress Notes * Jaimee Gandhi RPh - 06/10/2024 2:10 PM EST Pt remains admitted to [facility] at this time. Per CM notes, still looking for SNF. Jaimee Gandhi Rph, Pharm.D. Clinical Pharmacist Centralized Clinical Pharmacy Services ([facility]) [phone] 06/10/2024,2:10 PM documented in this encounter Plan of Treatment Upcoming Encounters Date Type Department Care Team (Late st Contact Info) Description 06/13/2024 6:45 AM EST Anticoagulation Central[facility] Clinical Pharmacy Services, Renee Wise [address] [place] [address] [place] [address] [facility], [address] [place] [address] 07/11/2024 9:50 AM EDT Office [facility] [place] [facility] [address] [place] [phone] Sherry Maya DO [address] [place] [address] Scheduled Procedures Name Priority Associated Diagnoses Date/Ti [...] the patient have Health Care Power of Beverage Steward? Yes, not currently available * Full Code [...] Relationshi p Communication Maurymemo Valdo Adult Child [facility] re Agent [facility] Care Agent Care Teams Counselor Aid Relationship Specialty Start Date End Date Sherry Maya DO PCP - General Family Medicine 11/12/11 documented as of this encounter
--- OUTSIDE RECORDS SUMMARY | 2024-07-16 05:10 | External Medical Summary | Summary of Care ---
Author Name Unknown Organization [facility] Address [address] [facility] [place] [address] Phone [phone] Care Team Providers Care Tile Finisher Name Role Phone Sherry Maya DO Primary Care Provider [phone] Reason for Visit * Reason Comments Dosage Adjustment Via Phone (anticoag Cl inic) Encounter Details Date Type Department Care Team (Late st Contact Info) Description 06/20/2024 6:45 AM EST Anticoagulation Central[facility] Clinical Pharmacy Services, Renee Wise [address] [place] [address] [place] [address] [facility], [address] [place] [address] Anticoagulation management encounter* Allergies Active Allergy Reactions Criticality Noted Date Comments Benzonatate 12/08/2016 choking Keyanna Pedraza Other (Please comment) High 04/10/20 09 Choking documented as of this encounter (statuses as of 06/21/2024) Medications ONETOUCH LANCETS MISCIndications:DM type 2, not [...] Cap 5 03/16/20 17 Active Glucose Blood (ZiebelTOUCH VERIO) STRP USE TO TEST BLOOD GLUCOSE 8 TIMES A DAY 800 Strip 3 03/18/20 19 Active Insulin Aspart 100 UNIT/ML Injection Solution Inject under the skin. 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 Project # [id number], ORAL HEALTH THERAPIST: Ben Hoover MD. CRC: DEBORAH Back. SUMMARY: To test the hypothesis that Evacetrapib 130 mg, in comparison to placebo, reduces the risk of major adverse coronary events in high-risk vascular disease patients. CONTACTS: During normal business hours, contact study staff at ; after hours Daily Release And Dupe Printer via the [facility] stamp press operator [phone]. 24-hour Global Study Helpline: [phone]. Lipid levels should not be ordered/obtained while this subject is in the Accelerate study. Lipids are being managed in a blinded fashion. If lipid levels are inadvertently obtained, it is important that test results are NOT provided to the patient, study doctor, massage coordinator, or other study team members. Restricted meds while in the study: 1) niacin > 250 mg, 2) gemfibrozil with a potent [id number]. NINA on CPAP 06/28/2012 01/31/2020 Overview (06/28/2012): [...] as of this encounter (statuses as of 06/21/2024) Immunizations Name Administration Dates Next Due COVID-19 [...] No 09/08/2023 Does the household have a [facility] source [facility] income? (Household - [...] Progress Notes * Jaimee Gandhi RPh - 06/20/2024 3:57 PM EST Images from the original note were not included. Pt remains admitted to [facility] at this time. CM working on d/c plans- possibly [facility] will continue to follow up for d/c plans. Jaimee Gandhi Rph, Pharm.D. Clinical Pharmacist Centralized Clinical Pharmacy Services ([facility]) [phone] 06/20/2024,3:57 PM documented in this encounter Plan of Treatment Upcoming Encounters Date Type Department Care Team (Late st Contact Info) Description 07/11/2024 9:50 AM EDT Office Visit [facility] [place] [address] [place] [phone] Sherry Maya DO [address] [place] [address] Scheduled Procedures Name Priority Associated Diagnoses Date/Ti [...] the patient have Health Care Power of Cushion Gum Applicator? Yes, not currently available * Full Code [...] Relationshi p Communication Omar Lyle Adult Child [facility] Health Ca re Agent Xi Lyle Adult Child Health Care Agent Care Teams Tile Finisher Relationship Specialty Start Date End Date Sherry Maya DO PCP - General Family Medicine 11/12/11 documented as of this encounter
--- OUTSIDE RECORDS SUMMARY | 2024-07-16 05:10 | External Medical Summary | Summary of Care ---
Author Name Unknown Organization [facility] Address [address] [facility] [place] [address] Phone [phone] Care Team Providers Care Facilities Mechanical Design Engineer Name Role Phone Sherry Maya DO Primary Care Provider [phone] Reason for Visit * Reason Comments Dosage Adjustment Via Phone (anticoag Cl inic) Encounter Details Date Type Department Care Team (Late st Contact Info) Description 06/16/2024 6:45 AM EST Anticoagulation Centralized Clinical Pharmacy Services, Renee Wise [address] [place] [address] [place] [address] [facility], [address] [place] [address] Acute deep vein thrombosis (DVT) of proximal vein of left lower extremity ([facility])* Allergies Active Allergy Reactions Criticality Noted Date Comments Benzonatate 12/08/2016 choking Keyanna Pedraza Other (Please comment) High 04/10/20 09 Choking documented as of this encounter (statuses as of 06/16/2024) Medications ONETOUCH LANCETS MISCIndications:DM type 2, not at goal ([facility]) 3 Box Dosing Unit 1 04/17/20 15 Active Nitroglycerin 0.4 MG Sublingual Tablet Sublingual Place under the tongue every 5 minutes as needed. Up to 3 in 15 minutes. 25 Tab 11 04/17/20 15 Active Magnesium Oxide 400 MG CapsuleIndications:H eart failure, systolic, due to CAD ([facility]),Automatic implantable cardioverter-defibri llator in situ,Chronic ischemic heart disease,Ischemic cardiomyopathy Take 1 Cap by mouth daily. 30 Cap 5 03/16/20 17 Active Glucose Blood (PlayrcartTOUCH VERIO) STRP USE TO TEST BLOOD GLUCOSE 8 TIMES A DAY 800 Strip 3 03/18/20 19 Active Insulin Aspart 100 UNIT/ML Injection Solution Inject under the skin. FOR USE IN PUMP Active DelivToAuthentic8 Verio Flex System w/Device Kit Use as [...] WalkerIndications:Os teomyelitis of foot, left, acute ([facility]),Diabetic polyneuropathy associated with diabetes mellitus due to underlying condition ([facility]),Ulcer of right foot with necrosis of muscle ([facility]),Right knee pain, unspecified chronicity,Heart failure, systolic, due to CAD ([facility]) Bariatric heavy duty walker- 2 wheels- please document patient's weight at 308 1 Each 02/08/20 Active DIURETIC TITRATION PLANIndications:Hear t failure, systolic, due to CAD ([facility]) If no improvement on day 3, [...] 100,DM type 2, not at goal ([facility]),Diabetic polyneuropathy associated with type 1 diabetes mellitus ([facility]),HTN, goal below 130/80,Abnormal electrocardiogram Take 1 [...] 24 Active Vitamin D (Ergocalciferol) 1.25 MG (28474 UT) Oral Capsule (Drisdol) TAKE ONE CAPSULE [...] as of this encounter (statuses as of 06/16/2024) Active Problems Problem Noted Date Diagnosed Date [...] (07/04/2019): Added automatically from request for surgery [id number] 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 Project # [id number], SOLAR DESIGNER: Ben Hoover MD. CRC: DEBORAH Back. SUMMARY: To test the hypothesis that Evacetrapib 130 mg, in comparison to placebo, reduces the risk of major adverse coronary events in high-risk vascular disease patients. CONTACTS: During normal business hours, contact study staff at ; after hours Gold Prospector via the [facility] hospital turning machine operator helper [phone]. 24-hour Global Study Helpline: [phone]. Lipid levels should not be ordered/obtained while this subject is in the Accelerate study. Lipids are being managed in a blinded fashion. If lipid levels are inadvertently obtained, it is important that test results are NOT provided to the patient, study doctor, instructional technology coordinator, or other study team members. Restricted meds while in the study: 1) niacin > 250 mg, 2) gemfibrozil with a potent [id number]. NINA on CPAP 06/28/2012 01/31/2020 Overview (06/28/2012): [...] as of this encounter (statuses as of 06/16/2024) Immunizations Name Administration Dates Next Due COVID-19 [...] Progress Notes * Jaimee Gandhi RPh - 06/16/2024 12:24 PM EST Pt remains admitted to [facility] at this time. CM working on d/c plans- possibly [facility]. [facility] will continue to follow up for d/c plans. Jaimee Gandhi Rph, Pharm.D. Clinical Pharmacist Centralized Clinical Pharmacy Services ([facility]) [phone] 06/16/2024,12:25 PM documented in this encounter Plan of Treatment Upcoming Encounters Date Type Department Care Team (Late st Contact Info) Description 06/20/2024 6:45 AM EST Anticoagulation Centralized Clinical Pharmacy Services, Renee Wise [address] [place] [address] [place] [address] [facility], [facility] [address] [place] [address] 07/11/2024 9:50 AM EDT Office Visit [facility] [address] [facility] [address] [place] [phone] Sherry Maya DO [address] [facility] [address] [place] [address] Scheduled Procedures Name Priority Associated Diagnoses Date/Ti [...] Depression Monitoring 09/07/2024 09/08/2023 HbA1c 11/03/2024 05/06/2024, 11/2023, 08/05/2023, Additional history exists TSH 02/25/2025 [...] the patient have Health Care Power of Appliance Assembler? Yes, not currently available * Full Code [...] Agents on File Name Relationship Healthcare Agent [facility] Omar Dryden Adult Child [facility] re Agent [facility] Care Agent Care Teams Facilities Mechanical Design Engineer Relationship Specialty Start Date End Date Sherry Maya DO PCP - General Family Medicine 11/12/11 documented as of this encounter
--- OUTSIDE RECORDS SUMMARY | 2024-07-16 05:10 | External Medical Summary | Summary of Care ---
Author Name Unknown Organization [facility] Address [address] [place] [address] Phone [phone] Care Team Providers Care Sample Finisher Name Role Phone Sherry Maya DO Primary Care Provider [phone] Reason for Visit * Reason Onset Date Comments Hospital Call 03/31/2024 Encounter Details Date Type Department Care Team (Late st Contact Info) Description 03/31/2024 Telephone Pharmacy, [place] [address] [place] [address] [facility] [address] [place] [address] Hospital Call Allergies Active Allergy Reactions Criticality Noted Date [...] 30 Cap 5 03/16/20 Active Glucose Blood (VoyageByMeTOUCH VERIO) STRP USE TO TEST BLOOD GLUCOSE [...] underlying condition ([facility]),Ulcer of right foot with necrosis of muscle ([facility]),Right knee pain, unspecified chronicity,Heart failure, systolic, due to CAD ([facility]) Bariatric heavy duty walker- 2 wheels- please document patient's weight at 308 1 Each 02/08/20 Active DIURETIC TITRATION PLANIndications:Hear t failure, systolic, due to CAD ([facility]) If no improvement on day 3, [...] at goal ([facility]),Diabetic polyneuropathy associated with type 1 diabetes [...] 4 3:57 PM EST 03/29/20 24 Active documented as [...] (07/04/2019): Added automatically from request for surgery [id number] 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 Project # [id number], ROAD MAKER: Ben Hoover MD. CRC: DEBORAH Back. SUMMARY: To test the hypothesis that Evacetrapib 130 mg, in comparison to placebo, reduces the risk of major adverse coronary events in high-risk vascular disease patients. CONTACTS: During normal business hours, contact study staff at ; after hours Financial Analyst Intern via the [facility] hospital profile saw setup operator [phone]. 24-hour Global Study Helpline: [phone]. Lipid levels should not be ordered/obtained while this subject is in the Accelerate study. Lipids are being managed in a blinded fashion. If lipid levels are inadvertently obtained, it is important that test results are NOT provided to the patient, study doctor, change control coordinator, or other study team members. Restricted meds while in the study: 1) niacin > 250 mg, 2) gemfibrozil with a potent [id number]. NINA on CPAP 06/28/2012 01/31/2020 Overview (06/28/2012): [...] encounter Miscellaneous Notes * Telephone Encounter - Shubham Jessica [facility] - 03/31/2024 12:44 AM EST There are no phone numbers on file. INR= 5.4 Lab called critical INR at 0039 03-31-24. Patent not called. MTM clinic appointment scheduled for today. [facility] pharmacist to follow up in am. Shubham Jessica RPh Clinical Pharmacist [facility] 03/31/2024, 12:44 AM documented in this encounter Plan of Treatment Upcoming Encounters Date Type Department Care Team (Late st Contact Info) Description 07/01/2024 6:45 AM EST Anticoagulation Centralized Clinical Pharmacy Services, Renee Wise [address] [place] [address] [place] [address] [facility], [address] [place] [address] 07/11/2024 9:50 AM EDT Office Visit [facility] [address] [facility] [place] [phone] Sherry Maya DO [address] [facility] [place] [address] Scheduled Procedures Name Priority Associated Diagnoses Date/Ti [...] the patient have Health Care Power of Project Archivist? Yes, not currently available * Full Code [...] Agents on File Name Relationship Healthcare [facility] Adult [facility] re Agent [facility] Care Agent Care Teams Sample Finisher Relationship Specialty Start Date End Date Sherry Maya DO PCP - General Family Medicine 11/12/11 documented as of this encounter
--- OUTSIDE RECORDS SUMMARY | 2024-07-16 05:10 | External Medical Summary | Summary of Care ---
Author Name Unknown Organization [facility] Address [address] [facility] [place] [address] Phone [phone] Care Team Providers Care Senior Materials Planner Name Role Phone Sherry Maya DO Primary Care Provider [phone] Reason for Visit * Reason Comments Dosage Adjustment Via Phone (anticoag Cl inic) Encounter Details Date Type Department Care Team (Late st Contact Info) Description 06/14/2024 6:45 AM EST Anticoagulation Centralized Clinical Pharmacy Services, Renee Wise [address] [place] [address] [place] [address] [facility], [address] [place] [address] Acute deep vein thrombosis (DVT) of proximal vein of left lower extremity ([facility])* Allergies Active Allergy Reactions Criticality Noted Date Comments Benzonatate 12/08/2016 choking Keyanna Pedraza Other (Please comment) High 04/10/20 09 Choking documented as of this encounter (statuses as of 06/14/2024) Medications ONETOUCH LANCETS MISCIndications:DM type 2, not [...] Cap 5 03/16/20 17 Active Glucose Blood (Extreme ReachTOUCH VERIO) STRP USE TO TEST BLOOD GLUCOSE 8 TIMES A DAY 800 Strip 3 03/18/20 19 Active Insulin Aspart 100 UNIT/ML Injection Solution Inject under the skin. FOR USE IN PUMP Active MobeonToNoom Verio Flex System w/Device Kit Use as [...] Active WalkerIndications:Os teomyelitis of foot, left, acute ([facility]),Diabetic polyneuropathy associated with diabetes mellitus due to underlying condition ([facility]),Ulcer of right foot with necrosis of muscle ([facility]),Right knee pain, unspecified chronicity,Heart failure, [...] type 2, not at goal ([facility]),Diabetic polyneuropathy associated with type 1 diabetes mellitus ([facility]),HTN, goal below 130/80,Abnormal electrocardiogram Take [...] 24 Active Vitamin D (Ergocalciferol) 1.25 MG (95742 UT) Oral Capsule (Drisdol) TAKE ONE CAPSULE [...] as of this encounter (statuses as of 06/14/2024) Active Problems Problem Noted Date Diagnosed Date [...] (07/04/2019): Added automatically from request for surgery [id number] 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 [...] as of this encounter (statuses as of 06/14/2024) Resolved Problems Problem Noted Date Diagnosed Date [...] Silent myocardial infarction 03/23/2013 11/08/2018 Accelerate Clinical Trial*[id number] 01/24/2013 05/16/2015 Overview (01/24/2013): ACCELERATE STUDY. Project # [id number], SEAFOOD MANAGER: Ben Hoover MD. CRC: DEBORAH Back. SUMMARY: To test the hypothesis that Evacetrapib 130 mg, in comparison to placebo, reduces the risk of major adverse coronary events in high-risk vascular disease patients. CONTACTS: During normal business hours, contact study staff at ; after hours C D Reactor Operator via the [facility] hospital asphalt still operator [phone]. 24-hour Global Study Helpline: [phone]. Lipid levels should not be ordered/obtained while this subject is in the Accelerate study. Lipids are being managed in a blinded fashion. If lipid levels are inadvertently obtained, it is important that test results are NOT provided to the patient, study doctor, dot compliance coordinator, or other study team members. Restricted meds while in the study: 1) niacin > 250 mg, 2) gemfibrozil with a potent [id number]. NINA on CPAP 06/28/2012 01/31/2020 Overview (06/28/2012): [...] as of this encounter (statuses as of 06/14/2024) Immunizations Name Administration Dates Next Due COVID-19 [...] documented in this encounter Progress Notes * Stefanie Merritt RPh - 06/14/2024 2:44 PM EST Pt remains admitted to [facility] at this time. Per CM notes, still looking for SNF. Thank you, Stefanie Merritt PharmD Clinical Pharmacist Centralized Clinical Pharmacy Services ([facility]) 06/14/2024 2:44 PM documented in this encounter Plan of Treatment Upcoming Encounters Date Type Department Care Team (Late st Contact Info) Description 06/16/2024 6:45 AM EST Anticoagulation Centralized Clinical Pharmacy Services, Renee Wise [address] [place] [address] [place] [address] [place] [address] 07/11/2024 9:50 AM EDT Office Visit [facility] [address] [facility] [place] [phone] Sherry Maya DO [address] [place] [address] Scheduled Procedures Name Priority Associated Diagnoses Date/Ti [...] the patient have Health Care Power of Surgery Attendant? Yes, not currently available * Full Code [...] Agents on File Name Relationship Healthcare Agent [facility] p Communication Omar Lyle Adult Child [facility] re Agent Xi Lyle Adult [facility] Care Agent Care Teams Senior Materials Planner Relationship Specialty Start Date End Date Sherry Maya DO PCP - General Family Medicine 11/12/11 documented as of this encounter
--- OUTSIDE RECORDS SUMMARY | 2024-07-16 05:11 | External Medical Summary | Summary of Care ---
Author Name Unknown Organization [facility] Address [address] [facility] [place] [address] Phone [phone] Care Team Providers Care Bowling Ball Molder Name Role Phone Sherry Maya DO Primary Care Provider [phone] Reason for Visit * Reason Onset Date Comments Fax 05/25/2024 [facility] Advice 05/25/2024 Encounter Details Date Type Department Care Team (Late st Contact Info) Description 05/25/[address] [facility] [address] [facility] [place] [phone] Sherry Maya DO [address] [facility] [place] [phone] Fax ([facility]); Advice Allergies Active Allergy Reactions Criticality Noted Date Comments Benzonatate 12/08/2016 choking Keyanna Pedraza Other (Please comment) High 04/10/20 09 Choking documented as of this encounter (statuses as of 06/08/2024) Medications ONETOUCH LANCETS MISCIndications:DM type 2, not [...] Cap 5 03/16/20 17 Active Glucose Blood (BattleproTOUCH VERIO) STRP USE TO TEST BLOOD GLUCOSE [...] WalkerIndications:Os teomyelitis of foot, left, acute ([facility] [...] 24 Active Vitamin D (Ergocalciferol) 1.25 MG (77357 UT) Oral Capsule (Drisdol) TAKE ONE CAPSULE [...] as of this encounter (statuses as of 06/08/2024) Active Problems Problem Noted Date Diagnosed Date [...] (07/04/2019): Added automatically from request for surgery [id number] 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 Project # [id number], SLEEP SCIENTIST: Ben Hoover MD. CRC: DEBORAH Back. SUMMARY: To test the hypothesis that Evacetrapib 130 mg, in comparison to placebo, reduces the risk of major adverse coronary events in high-risk vascular disease patients. CONTACTS: During normal business hours, contact study staff at ; after hours Amusement Machine Mechanic via the [facility] hospital direct casting operator [phone]. 24-hour Global Study Helpline: [phone]. Lipid levels should not be ordered/obtained while this subject is in the Accelerate study. Lipids are being managed in a blinded fashion. If lipid levels are inadvertently obtained, it is important that test results are NOT provided to the patient, study doctor, casting coordinator, or other study team members. Restricted meds while in the study: 1) niacin > 250 mg, 2) gemfibrozil with a potent [id number]. NINA on CPAP 06/28/2012 01/31/2020 Overview (06/28/2012): [...] as of this encounter (statuses as of 06/08/2024) Immunizations Name Administration Dates Next Due COVID-19 [...] encounter Miscellaneous Notes * Telephone Encounter - Christina Adam OSA - 06/07/2024 3:50 PM EST Sukumar Nayak ([phone]) calling in asking if you received the Supplemental order dated 04/28/24to 05/29/24. They need dr parker and faxed back ([phone]). Can you please advise? * Telephone Encounter - Cassi Toro LPN - 05/25/2024 3:04 PM EST Received Fax for BFPROVIDERS: Dr. Sherry Maya ORDER received from [facility] and FAXED documented in this encounter Plan of Treatment Upcoming Encounters Date Type Department Care Team (Late st Contact Info) Description 06/08/2024 6:45 AM EST Anticoagulation Centralized Clinical Pharmacy Services, Renee Wise [address] [place] [address] [place] [address] [facility], [address] [place] [address] 07/11/2024 9:50 AM EDT Office Visit [facility] [address] [facility] [place] [phone] Sherry Maya DO [address] [facility] [place] [address] Scheduled Procedures Name Priority [...] 100 06/2023, 09/24/2023, Additional history exists GFR 05/20/2025 [...] the patient have Health Care Power of Provider Enrollment Specialist? Yes, not currently available * Full [...] Relationshi p Communication Omar Mckeont Adult Child [facility] re Agent Xi Ontiverosrett Adult Child [facility] Care Agent Care Teams Bowling Ball Molder Relationship Specialty Start Date End Date Sherry Maya DO PCP - General Family Medicine 11/12/11 documented as of this encounter
--- OUTSIDE RECORDS SUMMARY | 2024-07-16 05:11 | External Medical Summary | Summary of Care ---
Author Name Unknown Organization [facility] Address [address] [facility] [place] [address] Phone [phone] Care Team Providers Care Senior Solutions Workflow Consultant Name Role Phone Sherry Maya DO Primary Care Provider [phone] Reason for Visit * Reason Comments Dosage Adjustment Via Phone (anticoag Cl inic) Encounter Details Date Type Department Care Team (Late st Contact Info) Description 06/03/2024 6:45 AM EST Anticoagulation [facility] Services, Renee Wise [address] [place] [address] [place] [address] [facility], [address] [place] [address] Anticoagulation management encounter* Allergies Active Allergy Reactions Criticality Noted Date Comments Benzonatate 12/08/2016 choking Keyanna Pedraza Other (Please comment) High 04/10/20 09 Choking documented as of this encounter (statuses as of 06/03/2024) Medications ONETOUCH LANCETS MISCIndications:DM type 2, not [...] Cap 5 03/16/20 17 Active Glucose Blood (YouAre.TVTOUCH VERIO) STRP USE TO TEST BLOOD GLUCOSE 8 TIMES A DAY 800 Strip 3 03/18/20 19 Active Insulin Aspart 100 UNIT/ML Injection Solution Inject under the skin. 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 Project # [id number], CLINICAL HAEMATOLOGIST: Ben Hoover MD. CRC: DEBORAH Back. SUMMARY: To test the hypothesis that Evacetrapib 130 mg, in comparison to placebo, reduces the risk of major adverse coronary events in high-risk vascular disease patients. CONTACTS: During normal business hours, contact study staff at ; after hours Manager Completions via the [facility] hospital mobile crane operator [phone]. 24-hour Global Study Helpline: [phone]. Lipid levels should not be ordered/obtained while this subject is in the Accelerate study. Lipids are being managed in a blinded fashion. If lipid levels are inadvertently obtained, it is important that test results are NOT provided to the patient, study doctor, community service officer coordinator, or other study team members. Restricted meds while in the study: 1) niacin > 250 mg, 2) gemfibrozil with a potent [id number]. NINA on CPAP 06/28/2012 01/31/2020 Overview (06/28/2012): [...] as of this encounter (statuses as of 06/03/2024) Immunizations Name Administration Dates Next Due COVID-19 [...] No 09/08/2023 Does the household have a [facility] source of income? (Household - for ages [...] Progress Notes * Jaimee Gandhi RPh - 06/03/2024 11:31 AM EST Pt remains admitted to [facility]. Possibly [place] at discharge per notes. Jaimee Gandhi Rph, Pharm.D. Clinical Pharmacist Centralized Clinical Pharmacy Services ([facility]) [phone] 06/03/2024,11:32 AM documented in this encounter Plan of Treatment Upcoming Encounters Date Type Department Care Team (Late st Contact Info) Description 06/06/2024 6:45 AM EST Anticoagulation Centralized Clinical Pharmacy Services, Renee Wise [address] [place] [address] [place] [address] [facility], [address] [place] [address] 07/11/2024 9:50 AM EDT [facility] [address] [place] [phone] Sherry Maya DO [address] [place] [address] Scheduled Procedures Name Priority Associated Diagnoses Date/Ti [...] the patient have Health Care Power of Rv Service Technician? Yes, not currently available * Full [...] [facility], [facility] re Agent Santanabenita Valdo Adult Child Health Care Agent Care Teams Senior Solutions Workflow Consultant Relationship Specialty Start Date End Date Sherry Maya DO PCP - General Family Medicine 11/12/11 documented as of this encounter
--- OUTSIDE RECORDS SUMMARY | 2024-07-16 05:11 | External Medical Summary | Summary of Care ---
Author Name Unknown Organization [facility] Address [address] [facility] [place] [address] Phone [phone] Care Team Providers Care Bobbin Cleaner Hand Name Role Phone Sherry Maya DO Primary Care Provider [phone] Reason for Visit * Reason Comments Dosage Adjustment Via Phone (anticoag Cl inic) Encounter Details Date Type Department Care Team (Late st Contact Info) Description 06/01/2024 6:45 AM EST Anticoagulation Centralized Clinical Pharmacy Services, Renee Wise [address] [place] [address] [place] [address] [address] [facility], [address] [place] [address] Anticoagulation management encounter* Allergies Active Allergy Reactions Criticality Noted Date Comments Benzonatate 12/08/2016 choking Keyanna Pedraza Other (Please comment) High 04/10/20 09 Choking documented as of this encounter (statuses as of 06/01/2024) Medications ONETOUCH LANCETS MISCIndications:DM type 2, not at goal ([facility]) 3 Box Dosing Unit 1 04/17/20 [...] Cap 5 03/16/20 17 Active Glucose Blood (Notify TechnologyTOUCH VERIO) STRP USE TO TEST BLOOD GLUCOSE 8 TIMES A DAY 800 Strip 3 03/18/20 19 Active Insulin Aspart 100 UNIT/ML Injection Solution Inject under the skin. FOR USE IN PUMP Active Content RamenTouch Verio Flex System w/Device Kit Use as [...] unspecified chronicity,Heart failure, systolic, due to CAD ([facility]) Bariatric heavy duty walker- 2 wheels- please document patient's weight at 308 1 Each 02/08/20 Active DIURETIC TITRATION PLANIndications:Hear t failure, systolic, due to CAD (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 Project # [id number], COMMUNITY RECREATION COORDINATOR: Ben Hoover MD. CRC: DEBORAH Back. SUMMARY: To test the hypothesis that Evacetrapib 130 mg, in comparison to placebo, reduces the risk of major adverse coronary events in high-risk vascular disease patients. CONTACTS: During normal business hours, contact study staff at ; after hours Principal Software Architect via the [facility] metal spraying machine operator [phone]. 24-hour Global Study Helpline: [phone]. Lipid levels should not be ordered/obtained while this subject is in the Accelerate study. Lipids are being managed in a blinded fashion. If lipid levels are inadvertently obtained, it is important that test results are NOT provided to the patient, study doctor, purchasing coordinator, or other study team members. Restricted meds while in the study: 1) niacin > 250 mg, 2) gemfibrozil with a potent [id number]. NINA on CPAP 06/28/2012 01/31/2020 Overview (06/28/2012): [...] as of this encounter (statuses as of 06/01/2024) Immunizations Name Administration Dates Next Due COVID-19 [...] 09/08/2023 Does the household have a [facility] source of income? (Household - for [...] Progress Notes * Jaimee Gandhi RPh - 06/01/2024 1:54 PM EST Pt remains admitted to [facility] at this time. Per CM notes, possibly Tania Mccullough at d/c [facility] will follow up. Jaimee Gandhi Rph, Pharm.D. Clinical Pharmacist Centralized Clinical Pharmacy Services ([facility]) [phone] 06/01/2024,1:54 PM documented in this encounter Plan of Treatment Upcoming Encounters Date Type Department Care Team (Late st Contact Info) Description 06/03/2024 6:45 AM EST Anticoagulation Centralized Clinical Pharmacy Services, Renee Wise [address] [place] [address] [place] [address] [place] [address] 07/11/2024 9:50 AM EDT Office Visit [facility], [facility] [facility] [place] [phone] Sherry Maya DO 226 [facility] [address] [place] [address] Scheduled Procedures Name Priority Associated Diagnoses Date/Ti [...] the patient have Health Care Power of Property And Equipment Clerk? Yes, not currently available * Full [...] Relationshi p Communication Omar Lyle Adult Child [facility] re Agent Xi Valdo Adult Child Health Care Agent Care Teams Bobbin Cleaner Hand Relationship Specialty Start Date End Date Sherry Maya DO PCP - General Family Medicine 11/12/11 documented as of this encounter
--- OUTSIDE RECORDS SUMMARY | 2024-07-16 05:11 | External Medical Summary | Summary of Care ---
Author Name Unknown Organization [facility] Address [address] [facility] [place] [address] Phone [phone] Care Team Providers Care Child Care Cook Name Role Phone Sherry Maya DO Primary Care Provider [phone] Reason for Visit * Reason Onset Date Comments Fax 05/25/2024 [facility] Advice 05/25/2024 Encounter Details Date Type Department Care Team (Late st Contact Info) Description 05/25/2024 Telephone [facility] [address] [facility] [place] [phone] Sherry Maya DO 226 [facility] [place] [phone] Fax ([facility]); Advice Allergies Active Allergy Reactions Criticality [...] Cap 5 03/16/20 17 Active Glucose Blood (Auction.comTOUCH VERIO) STRP USE TO TEST BLOOD GLUCOSE [...] 24 Active Vitamin D (Ergocalciferol) 1.25 MG (03376 UT) Oral Capsule (Drisdol) TAKE ONE CAPSULE [...] (07/04/2019): Added automatically from request for surgery [id number] 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 Project # [id number], TOBACCO SWEEPER: Ben Hoover MD. CRC: DEBORAH Back. SUMMARY: To test the hypothesis that Evacetrapib 130 mg, in comparison to placebo, reduces the risk of major adverse coronary events in high-risk vascular disease patients. CONTACTS: During normal business hours, contact study staff at ; after hours Global Marketing Intern via the [facility] hospital hay stacker operator [phone]. 24-hour Global Study Helpline: [phone]. Lipid levels should not be ordered/obtained while this subject is in the Accelerate study. Lipids are being managed in a blinded fashion. If lipid levels are inadvertently obtained, it is important that test results are NOT provided to the patient, study doctor, corporate wellness coordinator, or other study team members. Restricted meds while in the study: 1) niacin > 250 mg, 2) gemfibrozil with a potent [id number]. NINA on CPAP 06/28/2012 01/31/2020 Overview (06/28/2012): [...] - 06/07/2024 3:50 PM EST Sukumar Nayak ([phone]) calling in asking if you received the Supplemental order dated 04/28/24to 05/29/24. They need dr parker and faxed back ([phone]). Can you please advise? * Telephone Encounter - Cassi Toro LPN - 05/25/2024 3:04 PM EST Received Fax for BFPROVIDERS: Dr. Sherry Maya ORDER received from [facility] and FAXED documented in this encounter Plan of Treatment Upcoming Encounters Date Type Department Care Team (Late st Contact Info) Description 07/11/2024 9:50 AM EDT Office Visit [facility] Estevan Patricia [address] [place] [phone] Sherry Maya DO 226 [place] [address] Scheduled Procedures Name Priority Associated Diagnoses Date/Ti [...] the patient have Health Care Power of Pattern Repair Person? Yes, not currently available * Full Code [...] Health p Communication Omar Lyle Adult Child [facility] re Agent Xi Mckeont Adult [facility] Care Agent Care Teams Child Care Cook Relationship Specialty Start Date End Date Sherry Maya DO PCP - General Family Medicine 11/12/11 documented as of this encounter
--- OUTSIDE RECORDS SUMMARY | 2024-07-16 05:11 | External Medical Summary | Summary of Care ---
Author Name Unknown Organization [facility] Address [address] [facility] [place] [address] Phone [phone] Care Team Providers Care Department Traffic Freight Router Name Role Phone Sherry Maya DO Primary Care Provider [phone] Reason for Visit * Reason Comments Dosage Adjustment Via Phone (anticoag Cl inic) Encounter Details Date Type Department Care Team (Late st Contact Info) Description 06/08/2024 6:45 AM EST Anticoagulation Centralized Clinical Pharmacy Services, Renee Wise [address] [place] [address] [place] [address] [facility], [address] [place] [address] Anticoagulation management encounter* Allergies Active Allergy Reactions Criticality Noted Date Comments Benzonatate 12/08/2016 choking Keyanna Pedraza Other (Please comment) High 04/10/20 09 Choking documented as of this encounter (statuses as of 06/08/2024) Medications ONETOUCH LANCETS MISCIndications:DM type 2, not at goal ([facility]) 3 Box Dosing Unit 1 04/17/20 [...] Cap 5 03/16/20 17 Active Glucose Blood (BuzzStreamTOUCH VERIO) STRP USE TO TEST BLOOD GLUCOSE 8 TIMES A DAY 800 Strip 3 03/18/20 19 Active Insulin Aspart 100 UNIT/ML Injection Solution Inject under the skin. 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 Project # [id number], POWER CHISEL OPERATOR: Ben Hoover MD. CRC: DEBORAH Back. SUMMARY: To test the hypothesis that Evacetrapib 130 mg, in comparison to placebo, reduces the risk of major adverse coronary events in high-risk vascular disease patients. CONTACTS: During normal business hours, contact study staff at ; after hours Acupressure Therapist via the [facility] hospital grinder mill operator [phone]. 24-hour Global Study Helpline: [phone]. Lipid levels should not be ordered/obtained while this subject is in the Accelerate study. Lipids are being managed in a blinded fashion. If lipid levels are inadvertently obtained, it is important that test results are NOT provided to the patient, study doctor, medical staff coordinator, or other study team members. Restricted meds while in the study: 1) niacin > 250 mg, 2) gemfibrozil with a potent [id number]. NINA on CPAP 06/28/2012 01/31/2020 Overview (06/28/2012): [...] No 09/08/2023 Does the household have a [facility] source of income? (Household - for [...] Progress Notes * Jaimee Gandhi RPh - 06/08/2024 1:43 PM EST Pt remains admitted to [facility] will continue to follow up for discharge plans. Jaimee Gandhi Rph, Pharm.D. Clinical Pharmacist Centralized Clinical Pharmacy Services ([facility]) [phone] 06/08/2024,1:43 PM documented in this encounter Plan of Treatment Upcoming Encounters Date Type Department Care Team (Late st Contact Info) Description 06/10/2024 6:45 AM EST Anticoagulation [facility] Clinical Pharmacy Services, Renee Wise [address] [place] [address] [place] [address] [facility], [address] [place] [address] 07/11/2024 9:50 AM EDT Office [facility] [place] [facility] Patricia [address] [place] [phone] Sherry Maya DO [address] [place] [address] Scheduled Procedures Name Priority Associated Diagnoses Date/Ti [...] the patient have Health Care Power of Roller Pneumatic? Yes, not currently available * Full Code [...] Relationshi p Communication Omar Lyle Adult Child [facility] re Agent Santanabenita Valdo Adult Child Health Care Agent Care Teams Department Traffic Freight Router Relationship Specialty Start Date End Date Sherry Maya DO PCP - General Family Medicine 11/12/11 documented as of this encounter
--- OUTSIDE RECORDS SUMMARY | 2024-07-16 05:11 | External Medical Summary | Summary of Care ---
Author Name Unknown Organization [facility] Address [address] [facility] [place] [address] Phone [phone] Care Team Providers Care Skeins Yarn Examiner Name Role Phone Sherry Maya DO Primary Care Provider [phone] Reason for Visit * Reason Comments Dosage Adjustment Via Phone (anticoag Cl inic) Encounter Details Date Type Department Care Team (Late st Contact Info) Description 06/06/2024 6:45 AM EST Anticoagulation Central[facility] Clinical Pharmacy Services, Renee Wise [address] [place] [address] [place] [address] [facility], [address] [place] [address] Anticoagulation management encounter* Allergies Active Allergy Reactions Criticality Noted Date Comments Benzonatate 12/08/2016 choking Keyanna Pedraza Other (Please comment) High 04/10/20 09 Choking documented as of this encounter (statuses as of 06/06/2024) Medications ONETOUCH LANCETS MISCIndications:DM type 2, not [...] Cap 5 03/16/20 17 Active Glucose Blood (EnteloTOUCH VERIO) STRP USE TO TEST BLOOD GLUCOSE 8 TIMES A DAY 800 Strip 3 03/18/20 19 Active Insulin Aspart 100 UNIT/ML Injection Solution Inject under the skin. 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 Project # [id number], LONGWALL SHEARER OPERATOR: Ben Hoover MD. CRC: DEBORAH Back. SUMMARY: To test the hypothesis that Evacetrapib 130 mg, in comparison to placebo, reduces the risk of major adverse coronary events in high-risk vascular disease patients. CONTACTS: During normal business hours, contact study staff at ; after hours Chemical Engineer via the [facility] corrugator operator [phone]. 24-hour Global Study Helpline: [phone]. Lipid levels should not be ordered/obtained while [...] 250 mg, 2) gemfibrozil with a potent [id number]. NINA on CPAP 06/28/2012 01/31/2020 Overview (06/28/2012): [...] as of this encounter (statuses as of 06/06/2024) Immunizations Name Administration Dates Next Due COVID-19 [...] Progress Notes * Jaimee Gandhi RPh - 06/06/2024 2:27 PM EST Pt remains admitted to [facility]. Per CM notes, pt has not been agreeable to SNF placement. [facility]. [facility] will follow up at discharge. Jaimee Gandhi Rph, Pharm.D. Clinical Pharmacist Centralized Clinical Pharmacy Services ([facility]) [phone] 06/06/2024,2:28 PM documented in this encounter Plan of Treatment Upcoming Encounters Date Type Department Care Team (Late st Contact Info) Description 06/08/2024 6:45 AM EST Anticoagulation Centralized Clinical Pharmacy Services, Renee Wise [address] [place] [address] [place] [address] [address] [facility], [facility] [address] [place] [address] 07/11/2024 9:50 AM EDT Office Visit [facility] [address] [place] [phone] Sherry Maya DO [address] [place] [address] Scheduled Procedures Name Priority Associated Diagnoses Date/Ti [...] the patient have Health Care Power of Document Reviewer? Yes, not currently available * Full [...] Hospital p Communication Omar Lyle Adult Child [facility] re Agent Xi Lyle Adult Child [facility] Care Agent Care Teams Skeins Yarn Examiner Relationship Specialty Start Date End Date Sherry Maya DO PCP - General Family Medicine 11/12/11 documented as of this encounter
--- OUTSIDE RECORDS SUMMARY | 2024-07-16 05:12 | External Medical Summary | Summary of Care ---
Author Name Unknown Organization [facility] Address [address] [facility] [place] [address] Phone [phone] Care Team Providers Care Channel Rougher Name Role Phone Sherry Maya DO Primary Care Provider [phone] Reason for Visit * Reason Comments Dosage Adjustment Via Phone (anticoag Cl inic) Encounter Details Date Type Department Care Team (Late st Contact Info) Description 05/20/2024 6:45 AM EST Anticoagulation Centralized Clinical Pharmacy Services, Renee Wise [address] [place] [address] [place] [address] [facility], [address] [place] [address] Anticoagulation management encounter* Allergies Active Allergy Reactions Criticality Noted Date Comments Benzonatate 12/08/2016 choking Keyanna Pedraza Other (Please comment) High 04/10/20 09 Choking documented as of this encounter (statuses as of 05/20/2024) Medications ONETOUCH LANCETS MISCIndications:DM type 2, not at goal ([facility]) 3 Box Dosing Unit 1 04/17/20 15 [...] Cap 5 03/16/20 17 Active Glucose Blood (RC TransportationTOUCH VERIO) STRP USE TO TEST BLOOD GLUCOSE 8 TIMES A DAY 800 Strip 3 03/18/20 19 Active Insulin Aspart 100 UNIT/ML Injection Solution Inject under the skin. 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 Project # [id number], APPLIED MATHEMATICIAN: Ben Hoover MD. CRC: DEBORAH Back. SUMMARY: To test the hypothesis that Evacetrapib 130 mg, in comparison to placebo, reduces the risk of major adverse coronary events in high-risk vascular disease patients. CONTACTS: During normal business hours, contact study staff at ; after hours Ostrich Farmer via the [facility] hospital ball fringe machine operator [phone]. 24-hour Global Study Helpline: [phone]. Lipid levels should not be ordered/obtained while this subject is in the Accelerate study. Lipids are being managed in a blinded fashion. If lipid levels are inadvertently obtained, it is important that test results are NOT provided to the patient, study doctor, services coordinator, or other study team members. Restricted meds while in the study: 1) niacin > 250 mg, 2) gemfibrozil with a potent [id number]. NINA on CPAP 06/28/2012 01/31/2020 Overview (06/28/2012): [...] as of this encounter (statuses as of 05/20/2024) Immunizations Name Administration Dates Next Due COVID-19 [...] documented in this encounter Progress Notes * Aye Diana dehydrogenation converter operator - 05/20/2024 2:32 PM EST Caller's name: Taniya Asher call back number(OFFICE NUMBER FOR ): [phone] Reason for call: [facility] returning Ryan . Patient was discharged today and has been set up with [facility]. Number provided is the one directly to Media Clerk Taniya. Aye Diana [employer] [facility] Clinical Pharmacy Services [address] [place] [address] [address] [place] [phone] 05/20/2024,2:32 PM * Jaimee Gandhi [facility] - 05/20/2024 1:51 PM EST [facility] [phone] Pt no longer listed as admitted. LVM to Case Management for discharge information. Called back again asking CM to confirm dosing at discharge. Spoke to patient and confirmed he is now home. States he is now on 3mg daily, still has 2mg tabletsat home. Advised to follow 3mg daily and GML will repeat on 05/26 Jaimee Gandhi [facility], Pharm.D. Clinical Pharmacist Centralized Clinical Pharmacy Services ([facility]) [phone] 05/20/2024,4:15 PM documented in this encounter Plan of Treatment Upcoming Encounters Date Type Department Care Team (Late st Contact Info) Description 05/26/2024 10:30 AM EST Telemedicine [facility], [place] [address] [place] [address] Carolee Manriquez PA-C [address] [place] [address] Edna Baum, [facility] [address] [place] [address] 05/27/2024 6:00 AM EST Anticoagulation Centralized Clinical Pharmacy Services, Renee Wise [address] [place] [address] [place] [address] [facility], [address] [place] [address] 07/11/2024 9:50 AM EDT Office Visit [address] [place] [phone] Sherry Maya DO [address] [facility] [place] [address] Scheduled Procedures Name Priority Associated Diagnoses Date/Ti [...] 100 06/2023, 09/24/2023, Additional history exists GFR 05/17/2025 [...] the patient have Health Care Power of Stone Fabricator? Yes, not currently available * Full Code [...] Relationshi p Communication Omar Lyle Adult Child [facility] Care Teams Channel Rougher Relationship Specialty Start Date End Date Sherry Maya DO PCP - General Family Medicine 11/12/11 documented as of this encounter
--- OUTSIDE RECORDS SUMMARY | 2024-07-16 05:12 | External Medical Summary | Summary of Care ---
Author Name Unknown Organization [facility] Address [address] [facility] [place] [address] Phone [phone] Care Team Providers Care Probation Agent Name Role Phone Sherry Maya DO Primary Care Provider [phone] Reason for Visit * Reason Comments Dosage Adjustment Via Phone (anticoag Cl inic) Encounter Details Date Type Department Care Team (Late st Contact Info) Description 05/27/2024 6:45 AM EST Anticoagulation Centralized Clinical Pharmacy Services, Renee Wise [address] [place] [address] [place] [address] [facility], [address] [place] [address] Anticoagulation management encounter* Allergies Active Allergy Reactions Criticality Noted Date Comments Benzonatate 12/08/2016 choking Keyanna Pedraza Other (Please comment) High 04/10/20 09 Choking documented as of this encounter (statuses as of 05/27/2024) Medications ONETOUCH LANCETS MISCIndications:DM type 2, not at goal ([facility]) 3 Box Dosing Unit 1 04/17/20 15 [...] Cap 5 03/16/20 17 Active Glucose Blood (TripteaseTOUCH VERIO) STRP USE TO TEST BLOOD GLUCOSE 8 TIMES A DAY 800 Strip 3 03/18/20 19 Active Insulin Aspart 100 UNIT/ML Injection Solution Inject under the skin. 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 Project # [id number], METAL TILE SETTER: Ben Hoover MD. CRC: DEBORAH Back. SUMMARY: To test the hypothesis that Evacetrapib 130 mg, in comparison to placebo, reduces the risk of major adverse coronary events in high-risk vascular disease patients. CONTACTS: During normal business hours, contact study staff at ; after hours Certified Addiction Counselor via the [facility] hospital fluoroscope operator [phone]. 24-hour Global Study Helpline: [phone]. Lipid levels should not be ordered/obtained while this subject is in the Accelerate study. Lipids are being managed in a blinded fashion. If lipid levels are inadvertently obtained, it is important that test results are NOT provided to the patient, study doctor, campaign coordinator, or other study team members. Restricted meds while in the study: 1) niacin > 250 mg, 2) gemfibrozil with a potent [id number]. NINA on CPAP 06/28/2012 01/31/2020 Overview (06/28/2012): [...] as of this encounter (statuses as of 05/27/2024) Immunizations Name Administration Dates Next Due COVID-19 [...] No 09/08/2023 Does the household have a peak behavioral health serviceslar source of income? (Household - for [...] Progress Notes * Jaimee Gandhi RPh - 05/27/2024 2:36 PM EST Pt remains admitted to [facility]. Per CM notes, plan is rehab at discharge. [facility] will follow up. Jaimee Gandhi Rph, Pharm.D. Clinical Pharmacist Centralized Clinical Pharmacy Services ([facility]) [phone] 05/27/2024,2:36 PM documented in this encounter Plan of Treatment Upcoming Encounters Date Type Department Care Team (Late st Contact Info) Description 05/30/2024 6:45 AM EST Anticoagulation Centralized Clinical Pharmacy Services, Renee Wise [address] [place] [address] [place] [address] [facility], [address] [place] [address] 07/11/2024 9:50 AM EDT Office Visit [facility], [facility] [place] [phone] Sherry Maya DO 226 [place] [address] Scheduled Procedures Name Priority Associated Diagnoses Date/Ti [...] the patient have Health Care Power of Phytopathologist? Yes, not currently available * Full Code [...] File Name Relationship Healthcare Agent [facility] p Communication Omar Lyle Adult Child [facility] re Agent Xi Lyle Adult Child Health Care Agent Care Teams Probation Agent Relationship Specialty Start Date End Date Sherry Maya DO PCP - General Family Medicine 11/12/11 documented as of this encounter
--- OUTSIDE RECORDS SUMMARY | 2024-07-16 05:12 | External Medical Summary | Summary of Care ---
Author Name Unknown Organization [facility] Address [address] [facility] [address] Phone [phone] Care Team Providers Care Fire Technology Instructor Name Role Phone Sherry Maya DO Primary Care Provider + [phone] Reason for Visit * Reason Onset Date Comments Advice 05/18/2024 Encounter Details Date Type Department Care Team (Late st Contact Info) Description 05/18/2024 Telephone [facility] [address] [facility] [place] [phone] Sherry Maya DO 226 [facility] [place] [address] Advice Allergies Active Allergy Reactions Criticality Noted Date Comments Benzonatate 12/08/2016 choking Keyanna Pedraza Other (Please comment) High 04/10/20 09 Choking documented as of this encounter (statuses as of 05/19/2024) Medications ONETOUCH LANCETS MISCIndications:DM type 2, not [...] to CAD ([facility]),Automatic implantable cardioverter-defibri llator in situ,Chronic ischemic heart disease,Ischemic cardiomyopathy Take 1 Cap by mouth daily. 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 Project # [id number], ASSEMBLING MOTOR BUILDER: Ben Hoover MD. CRC: DEBORAH Back. SUMMARY: To test the hypothesis that Evacetrapib 130 mg, in comparison to placebo, reduces the risk of major adverse coronary events in high-risk vascular disease patients. CONTACTS: During normal business hours, contact study staff at ; after hours Microstrategy Architect via the [facility] tracer lathe set up operator [phone]. 24-hour Global Study Helpline: [phone]. Lipid levels should not be ordered/obtained while this subject is in the Accelerate study. Lipids are being managed in a blinded fashion. If lipid levels are inadvertently obtained, it is important that test results are NOT provided to the patient, study doctor, billing coordinator, or other study team members. Restricted meds while in the study: 1) niacin > 250 mg, 2) gemfibrozil with a potent [id number]. NINA on CPAP 06/28/2012 01/31/2020 Overview (06/28/2012): [...] as of this encounter (statuses as of 05/19/2024) Immunizations Name Administration Dates Next Due COVID-19 [...] Telephone Encounter - Sherry Maya DO - 05/19/2024 11:11 AM EST What specific order do they need? * Telephone Encounter - Karolina Larry LPN - 05/18/2024 1:18 PM EST Please advise, thank you! * Telephone Encounter - April Eugene OSA - 05/18/2024 11:11 AM EST Call [facility] Nurse. They are asking for supplemental order dated 04/17/2024. They will fax again today. For questions call [phone] Fax to [phone] documented in this encounter Plan of Treatment Upcoming Encounters Date Type Department Care Team (Late st Contact Info) Description 05/20/2024 6:45 AM EST Anticoagulation Centralized Clinical Pharmacy Services, Renee Wise [address] [place] [address] [place] [address] [facility], [facility] [address] [address] 05/26/2024 10:30 AM EST Telemedicine [facility], [place] [address] [place] [address] Carolee Manriquez PA-C [address] [place] [address] Edna Baum, [facility] Bit Setter [address] [place] [address] 07/11/2024 9:50 AM EDT Office Visit [facility] [address] [place] [phone] Sherry Maya DO [address] [place] [address] Scheduled Procedures Name Priority Associated Diagnoses Date/Ti [...] the patient have Health Care Power of Dietary Services Manager? Yes, not currently available * Full [...] File Name Relationship Healthcare [facility] Omar L[facility] Adult [facility] re Agent Xi Mckeont Adult [facility] Care Agent Care Teams Fire Technology Instructor Relationship Specialty Start Date End Date Sherry Maya DO PCP - General Family Medicine 11/12/11 documented as of this encounter
--- OUTSIDE RECORDS SUMMARY | 2024-07-16 05:12 | External Medical Summary | Summary of Care ---
Author Name Unknown Organization [facility] Address [address] [facility] [address] [address] Phone [phone] Care Team Providers Care Computer Mechanic Name Role Phone Sherry Maya DO Primary Care Provider + [phone] Reason for Visit * Reason Onset Date Comments Hospital Follow-Up 02/26/2024 Encounter Details Date Type Department Care Team (Late st Contact Info) Description 02/26/2024 Telephone General Internal Medicine [facility] [address] [facility] [place] [address] Sherry Maya DO 226 [facility] [id number] Follow-Up Allergies Active Allergy Reactions Criticality Noted Date Comments Benzonatate 12/08/2016 choking Keyanna Pedraza Other (Please comment) High 04/10/20 09 Choking documented as of this encounter (statuses as of 05/28/2024) Medications ONETOUCH LANCETS MISCIndications:DM type 2, not at goal ([facility]) 3 Box Dosing Unit 1 04/17/20 15 Active Nitroglycerin 0.4 MG Sublingual Tablet Sublingual Place under the tongue every 5 minutes as needed. Up to 3 in 15 minutes. 25 Tab 11 04/17/20 15 Active Magnesium Oxide 400 MG CapsuleIndications:He art failure, systolic, due to CAD ([facility]),Automatic implantable cardioverter-defibril lator in situ,Chronic ischemic heart disease,Ischemic cardiomyopathy Take 1 Cap by mouth daily. 30 Cap 5 03/16/20 17 Active Glucose Blood (agri.capitalTOUCH VERIO) STRP USE TO TEST BLOOD GLUCOSE 8 TIMES A DAY 800 Strip 3 03/18/20 Active Insulin Aspart 100 UNIT/ML Injection Solution Inject under the skin. 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 Project # [id number], METAL WORKER: Ben Hoover MD. CRC: DEBORAH Back. SUMMARY: To test the hypothesis that Evacetrapib 130 mg, in comparison to placebo, reduces the risk of major adverse coronary events in high-risk vascular disease patients. CONTACTS: During normal business hours, contact study staff at ; after hours Elementary Substitute Teacher via the [facility] hospital embossing calender operator [phone]. 24-hour Global Study Helpline: [phone]. Lipid levels should not be ordered/obtained while this subject is in the Accelerate study. Lipids are being managed in a blinded fashion. If lipid levels are inadvertently obtained, it is important that test results are NOT provided to the patient, study doctor, implant coordinator, or other study team members. Restricted meds while in the study: 1) niacin > 250 mg, 2) gemfibrozil with a potent [id number]. NINA on CPAP 06/28/2012 01/31/2020 Overview (06/28/2012): [...] as of this encounter (statuses as of 05/28/2024) Immunizations Name Administration Dates Next Due COVID-19 [...] encounter Miscellaneous Notes * Telephone Encounter - Kena Ruiz LPN - 02/26/2024 2:28 PM EDT Lab orders placed Manager Knowledge please inform patient of need of labs 72 hours prior to this Apt * Telephone Encounter - Yusef Cortez RN - 02/26/2024 1:45 PM EDT Patient discharged to home 02/21/24 from [facility]. Nephrology consulted for CHATO. Dr Crowe recommends: hospital d/c appt in 2-3 wks after hospital d/c any physician Regina Villarreal w/ [place], [facility], acr, cbc all to be done no more than 72 hrs before appt and ordered by neph nurse. Please assist with the recommendations. Thank you documented in this encounter Plan of Treatment Upcoming Encounters Date Type Department Care Team (Late st Contact Info) Description 05/30/2024 6:45 AM EST Anticoagulation Centralized Clinical Pharmacy Services, Renee Wise [address] [place] [address] [place] [address] [place] [address] 07/11/2024 9:50 AM EDT Office Visit David [facility] [address] [place] [phone] Sherry Maya, DO 226 [place] [address] Scheduled Orders Name Type Priority Associated Diagnoses Orde r Schedule BASIC METABOLIC PANEL Lab Routine CHATO (acute kidney injury) ([facility]) Expected: 02/26/2024 (Approximate), Expires: 02/25/2025 CBC WITH WBC DIFFERENTIAL Lab Routine CHATO (acute kidney injury) ([facility]) Expected: 02/26/2024 (Approximate), Expires: 02/25/2025 URINALYSIS WITH MICROSCOPIC EXAM Lab Routine CHATO (acute kidney injury) ([facility]) Expected: 02/26/2024 (Approximate), Expires: 02/25/2025 ALBUMIN / CREATININE RATIO, URINE Lab Routine CHATO (acute kidney injury) ([facility]) Expected: 02/26/2024 (Approximate), Expires: 02/25/2025 Scheduled Procedures Name Priority Associated Diagnoses Date/Ti [...] as of this encounter Visit Diagnoses Diagnosis CHATO (acute kidney injury) (HCC)- Primary Acute kidney failure, unspecified documented in this encounter Advance Directives * [...] the patient have Health Care Power of Tailor Garment Fitter? Yes, not currently available * Full Code [...] [place] re Agent Xi Lyle Adult Child [facility] Care Agent Care Teams Computer Mechanic Relationship Specialty Start Date End Date Sherry Maya DO PCP - General Family Medicine 11/12/11 documented as of this encounter
--- OUTSIDE RECORDS SUMMARY | 2024-07-16 05:12 | External Medical Summary | Summary of Care ---
Author Name Unknown Organization [facility] Address [address] [facility] [place] [address] Phone [phone] Care Team Providers Care Medical Affairs Leader Name Role Phone Sherry Maay DO Primary Care Provider [phone] Reason for Visit * Reason Comments Dosage Adjustment Via Phone (anticoag Cl inic) Encounter Details Date Type Department Care Team (Late st Contact Info) Description 05/30/2024 6:45 AM EST Anticoagulation [facility], Renee Wise [address] [place] [address] [place] [address] [facility], [address] [place] [address] Anticoagulation management encounter* Allergies Active Allergy Reactions Criticality Noted Date Comments Benzonatate 12/08/2016 choking Keyanna Pedraza Other (Please comment) High 04/10/20 09 Choking documented as of this encounter (statuses as of 05/31/2024) Medications ONETOUCH LANCETS MISCIndications:DM type 2, not [...] Cap 5 03/16/20 17 Active Glucose Blood (Fair and SquareTOUCH VERIO) STRP USE TO TEST BLOOD GLUCOSE 8 TIMES A DAY 800 Strip 3 03/18/20 19 Active Insulin Aspart 100 UNIT/ML Injection Solution Inject under the skin. FOR USE IN PUMP Active EQ worksTouch Verio Flex System w/Device Kit Use as [...] 24 Active Vitamin D (Ergocalciferol) 1.25 MG (46727 UT) Oral Capsule (Drisdol) TAKE ONE CAPSULE [...] as of this encounter (statuses as of 05/31/2024) Active Problems Problem Noted Date Diagnosed Date [...] (07/04/2019): Added automatically from request for surgery [id number] 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 [...] as of this encounter (statuses as of 05/31/2024) Resolved Problems Problem Noted Date Diagnosed Date [...] Silent myocardial infarction 03/23/2013 11/08/2018 Accelerate Clinical Trial*[id number] 01/24/2013 05/16/2015 Overview (01/24/2013): ACCELERATE STUDY. Project # [id number], HALL SUPERVISOR: Ben Hoover MD. CRC: DEBORAH Back. SUMMARY: To test the hypothesis that Evacetrapib 130 mg, in comparison to placebo, reduces the risk of major adverse coronary events in high-risk vascular disease patients. CONTACTS: During normal business hours, contact study staff at ; after hours Vehicle Operator Technician via the [facility] hospital measurement operator [phone]. 24-hour Global Study Helpline: [phone]. Lipid levels should not be ordered/obtained while this subject is in the Accelerate study. Lipids are being managed in a blinded fashion. If lipid levels are inadvertently obtained, it is important that test results are NOT provided to the patient, study doctor, pharmacy benefits coordinator, or other study team members. Restricted meds while in the study: 1) niacin > 250 mg, 2) gemfibrozil with a potent [id number]. NINA on CPAP 06/28/2012 01/31/2020 Overview (06/28/2012): [...] as of this encounter (statuses as of 05/31/2024) Immunizations Name Administration Dates Next Due COVID-19 [...] No 09/08/2023 Does the household have a [place] service unit[place] source of income? (Household - for ages [...] Progress Notes * Jaimee Gandhi RPh - 05/30/2024 3:27 PM EST PT remains admitted to [facility]. [facility] wll continue to follow up for d/c plans. Pt wants to go to [facility]. Jaimee Gandhi Rph, Pharm.D. Clinical Pharmacist [facility] ([facility]) [phone] 05/30/2024,3:30 PM documented in this encounter Plan of Treatment Upcoming Encounters Date Type Department Care Team (Late st Contact Info) Description 06/01/2024 6:45 AM EST Anticoagulation [facility], Renee Wise [address] [place] [address] [place] [address] [facility], [address] [place] [address] 07/11/2024 9:50 AM EDT Office Visit [facility] [place] [facility] [place] [phone] Sherry Maya DO [address] [place] [address] Scheduled Procedures Name Priority Associated Diagnoses Date/Ti [...] the patient have Health Care Power of 1[place]? Yes, not currently available * Full Code [...] Child [facility] re Agent Xi Lyle Adult Child Health Care Agent Care Teams Medical Affairs Leader Relationship Specialty Start Date End Date Sherry Maya DO PCP - General Family Medicine 11/12/11 documented as of this encounter
[2024-07-16] MEDS: ACETAMINOPHEN 500 MG TAB PO PRN (06:31)
[2024-07-16] MEDS: LEVOTHYROXINE SODIUM 88 MCG TABLET PO SCH (06:42)
[2024-07-16 09:07] LABS: ANTI-Xa, UFH(UnfractionatedHep < 0.10 IU/ml (0.3-0.7)
[2024-07-16] MEDS: AMMONIUM LACTATE 12% LOTION 225 GM BTL EXT SCH (09:16)
[2024-07-16] MEDS: CEROVITE ADV FORMULA TAB PO SCH (09:17)
[2024-07-16] MEDS: DOXYCYCLINE HYCLATE 100 MG CAP PO SCH (09:17)
[2024-07-16] MEDS: LORATADINE 10 MG TAB PO SCH (09:17)
[2024-07-16] MEDS: ATORVASTATIN 40 MG TAB PO SCH (09:17)
[2024-07-16 09:18] LABS: Adenovirus F 40/41 PCR Not Detected (NotDetected); Astrovirus PCR Not Detected (NotDetected); Campylobacter PCR Not Detected (NotDetected); Cryptosporidium PCR Not Detected (NotDetected); Cyclospora cayetanensis PCR Not Detected (NotDetected); Entamoeba histolytica PCR Not Detected (NotDetected); Enteroaggregative E.coli(EAEC) Not Detected (NotDetected); Enteropathogenic E.coli (EPEC) Not Detected (NotDetected); Enterotoxigenic E.coli (ETEC) Not Detected (NotDetected); Giardia lamblia PCR Not Detected (NotDetected); Norovirus GI/GII PCR Not Detected (NotDetected); Plesiomonas shigelloides PCR Not Detected (NotDetected); Rotavirus A PCR Not Detected (NotDetected); Salmonella PCR Not Detected (NotDetected); Sapovirus PCR Not Detected (NotDetected); Shiga-like Toxin E.coli (STEC) Not Detected (NotDetected); Shigella/Enteroinvasive E.coli Not Detected (NotDetected); Vibrio cholerae PCR Not Detected (NotDetected); Vibrio species PCR Not Detected (NotDetected); Yersinia enterocolitica PCR Not Detected (NotDetected)
[2024-07-16] MEDS: METOPROLOL SUCC 50MG EXT REL TAB PO SCH (09:18)
[2024-07-16] MEDS: lisinopril 5 MG TAB PO SCH (09:18)
[2024-07-16] MEDS: ASPIRIN 81 MG ECTAB PO SCH (09:19)
[2024-07-16] MEDS: TORSEMIDE 20 MG TAB PO SCH ×2 (09:19→17:14)
[2024-07-16] MEDS: FERROUS SULFATE 325 MG TAB PO SCH (09:20)
[2024-07-16] MEDS: DULoxetine HCL 60 MG CAP PO SCH (09:20)
[2024-07-16] MEDS: PANTOprazole 40 MG TAB PO SCH (09:20)
[2024-07-16] MEDS: POTASSIUM CHLORIDE CRTAB 20 MEQ TABCR PO STA (10:33)
[2024-07-16] MEDS: HEPARIN SOD (PORCINE) 1000 UNIT/ML IV ONE ×2 (10:34→17:34)
[2024-07-16] MEDS: PREGABALIN 75 MG CAP PO SCH (10:34)
[2024-07-16] MEDS: PROMETHAZINE 12.5 MG/50.5 ML BAG IV PRN (12:36)
--- NOTE | 2024-07-16 12:51 | Electrocardiogram Report ---
Test Reason : Blood Pressure : */* mmHG Vent. Rate : 86 BPM Atrial Rate : * BPM P-R Int : * ms QRS Dur : 138 ms QT Int : 458 ms P-R-T Axes : * -3 170 degrees QTcB Int : 548 ms Atrial fibrillation with premature ventricular or aberrantly conducted complexes Non-specific intra-ventricular conduction block Old Anterolateral infarct (cited on or before 13-Jun-2020) Abnormal ECG When compared with ECG of 28-May-2024 05:18, No significant change Confirmed by Anthony Rodriguez ([id number]) on 07/16/2024 12:50:51 PM Referred By: REFERRED SELF Confirmed By: Anthnoy Rodriguez
--- NOTE | 2024-07-16 12:57 | Hospitalist Progress Note ---
Date of Service July 16, 2024 Assessment & Plan (1) Cellulitis of right leg: Plan 58-year-old man with PMH of HFrEF [EF 30 to 35%, TTE 2024] sp ICD, CAD, VT sp ablation, A-fib/DVT on Coumadin, HTN, HLD, pHTN,/OHS on BPAP, bronchial asthma, T2DM on insulin pump, hypothyroidism, CKD [baseline creatinine of 1.2-1.3], chronic anemia [baseline hemoglobin of 10], mood disorder, RLE osteomyelitis sp surgery, left foot osteomyelitis sp left BKA, morbid obesity who was recently admitted 05/24/2024 to 07/01/2024 for decompensated heart failure/LLE cellulitis and infected chronic right foot ulcer. Wound cultures were negative and patient completed cefepime and meropenem course. There was unsuccessful efforts for rehab/permanent placement at the time and patient was discharged home. Patient was admitted at [facility] July 02 to day after [facility] discharge as patient was found by home health nurse living in deplorable condition. Patient was discharged from the hospital despite social psychologist notifying hospital providers that patient was not safe going home. Per patient's home health nursing reports, patient has trouble getting food/patient confused about medication/patient worried about bilateral painful leg swelling with intermittent bloody drainage/patient fell off of his chair and had to call [facility] twice to get him up/patient incapable of transfers and is with bowel incontinence. 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 Patient denied fever/chills/chest pain/cough/Headache. He is being managed for the following: BLE cellulitis Underlying RLE osteomyelitis Medical noncompliance No sepsis at presentation. Patient with recurrent lower extremity cellulitis likely secondary to noncompliance with medications/diet and patient's functional disability. Admitting imagings: CXR with mild pulmonary edema. C-spine CT and head CT with no acute finding. XR Left lower extremity with no acute bony abnormality, left below-knee amputation noted. Right foot x-ray and right foot CT - suggestive of extensive osteomyelitis. No pathologic fracture noted. CT right lower extremity - suggestive of cellulitis. CT Left knee and BKA stump - suggestive of cellulitis. Patient started on doxycycline 07/16, continue. Add cefepime, add probiotic. ID consult, podiatry consult. WOCN consult Follow admitting blood culture. Atrial fibrillation: Rate controlled. hold Coumadin and continue with heparin drip for now in case any surgical procedures needed until podiatry evaluation. Continue with home metoprolol dose. Acute on chronic heart failure with reduced ejection fraction: Recent echo with EF of 30 to 35%, BLE swelling noted, CXR with pulmonary edema at presentation. Likely secondary to medication noncompliance. For now we will continue with home diuretics regimen, continue with fluid restriction. Monitor I's and O's, monitor and replete electrolytes. Adult failure to thrive: Medication noncompliance Inability to take care of the self Patient has had numerous hospitalizations in regards to failure to thrive at home Dietary consult, case management consult. PT/OT. Other chronic medical conditions: Continue with/resume home meds as and when a ble. T2DM: Sliding scale insulin. PVD: Status post left BKA amputation. Continue with home aspirin and Lipitor. Morbid obesity: Likely contributed to PVD and recurrent cellulitis. Counseling done. CKD: CKD stage III, stable. NINA on CPAP: Continue CPAP at bedtime. Cardiac defibrillator in situ: Noted Major depression disorder: Continue with duloxetine Lymphedema: Likely contributing to cellulitis. Follow-up with lymphedema clinic as an outpatient. Chronic pain syndrome: c/w oxy and lyrica DVT px: Hep drip Admission and Anticipated Discharge Date Admission Date: July 15, 2024 Subjective Patient was seen and examined at bedside. Patient was lying in bed, on room air, NAD, resting comfortably. Patient reports upper back and shoulder pain, reports feeling weak. 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 Denied fever. Physical Exam Physical Exam: GENERAL: Apathetic, morbidly obese, no respiratory distress SKIN: Pallor, warm HEENT: [place] palpebral conjunctivae, no ptosis, moist buccal mucosa NECK : Supple, short neck, no tenderness CHEST : Decreased breath sounds, no tenderness HEART : Irregular, diminished S1-S2 ABDOMEN: distention, no tenderness EXTREMITIES : Tender erythematous and edematous RLE with dressing over wound, left amputation stump induration and edema with tenderness with dressing NEUROLOGIC : Coherent, no facial asymmetry, no other gross focality Results & Data Results & Data Vital Signs (Past 12 Hours) Vital Signs Temp Pulse Pulse Resp BP Pulse Ox O2 Del Method 07/16/24 12:00 36.8 C 73 20 127/62 92 Room Air 07/16/24 07:51 86 16 107/63 99 Room Air 07/16/24 07:11 85 07/16/24 01:33 36.6 C 78 14 110/53 L 97 Room Air
[2024-07-16] MEDS: ADVANCED PROBIOTIC 625 MG CAPSULE PO SCH (16:18)
[2024-07-16] MEDS: CEFEPIME 2000MG 2,000 MG/20 ML SYR IV SCH (16:19)
[2024-07-16 17:06] LABS: ANTI-Xa, UFH(UnfractionatedHep < 0.10 IU/ml (0.3-0.7)
[2024-07-16] MEDS: POTASSIUM CHLORIDE CRTAB 20 MEQ TABCR PO SCH (20:44)
[2024-07-17 05:53] LABS: Hematocrit (blood only) 34.8 % (42.0-52.0); Hemoglobin 11.5 g/dl (14.0-18.0); Mean Corpuscular Hemoglobin 27.6 pg (25.0-34.0); Mean Corpuscular Volume 83.7 fL (80.0-100.0); Mean Platelet Volume 8.8 fL (9.4-12.4); Platelet Count 323 K/uL (130-400); RDW Coefficient of Variation 16.6 % (11.5-14.5); RDW Standard Deviation 50.8 fL (36.4-46.3); Red Blood Count 4.16 M/uL (4.70-6.10); White Blood Count 4.08 K/ul (4.8-10.8)
[2024-07-17 06:09] LABS: BUN Creatinine Ratio 18.7 (10-20); Calcium 8.6 mg/dl (8.6-10.3); Creatinine Clr Calc Pharmacy 112.4 ml/min; Magnesium 1.5 mg/dl (1.7-2.4); Phosphorus 3.6 mg/dl (2.5-4.9); Potassium 3.3 mmol/L (3.5-5.1)
[2024-07-17 06:13] LABS: ANTI-Xa, UFH(UnfractionatedHep 0.18 IU/ml (0.3-0.7)
[2024-07-17 06:16] LABS: INR 1.3 (0.9-1.1); Prothrombin Time 14.1 Seconds (9.0-12.0)
[2024-07-17] MEDS: HEPARIN SOD (PORCINE) 1000 UNIT/ML IV ONE (07:11)
--- NOTE | 2024-07-17 08:38 | Electrocardiogram Report ---
Test Reason : Blood Pressure : */* mmHG Vent. Rate : 85 BPM Atrial Rate : 174 BPM P-R Int : * ms QRS Dur : 146 ms QT Int : 456 ms P-R-T Axes : * -28 136 degrees QTcB Int : 542 ms Atrial fibrillation Non-specific intra-ventricular conduction delay Old Anterolateral infarct Abnormal ECG When compared with ECG of 15-Jul-2024 15:30, No significant change Confirmed by Anthony Rodriguez ([id number]) on 07/17/2024 8:37:56 AM Referred By: REFERRED SELF Confirmed By: Anthony Rodriguez
[2024-07-17] MEDS: POTASSIUM CHLORIDE CRTAB 20 MEQ TABCR PO STA (09:14)
[2024-07-17] MEDS: SPIRONOLACTONE 25 MG TAB PO SCH (09:16)
[2024-07-17] MEDS: MAGNESIUM SULFATE / D5W 1 GM/100 ML BAG IV SCH (09:30)
[2024-07-17 13:23] LABS: ANTI-Xa, UFH(UnfractionatedHep 0.32 IU/ml (0.3-0.7)
--- NOTE | 2024-07-17 14:43 | Podiatry Consultation ---
Date of Consultation July 17, 2024 Assessment & Plan (1) Osteomyelitis of ankle and foot: (2) Status post incision and drainage: (3) History of below-knee amputation of left lower extremity: (4) Diabetic ulcer of right foot associated with diabetes mellitus due to underlying condition, with necrosis of bone: Diabetic foot ulcer location: other Qualified Code(s): E08.621 - Diabetes mellitus due to underlying condition with foot ulcer; L97.514 - Non- pressure chronic ulcer of other part of right foot with necrosis of bone (5) Acute osteomyelitis of right calcaneus: Plan Plan Diabetic ulcer of the right foot with underlying osteomyelitis: -Right foot x-ray and right foot CT - suggestive of extensive osteomyelitis including the cuboid, calcaneus, fifth metatarsal. -Right foot wound culture pending -Blood culture x 2 07/15/2024: No growth in anaerobic bottle 48 hours. -Continue once daily dressing changes right foot: Flushed wound with normal sterile saline dressed with with Aquacel Ag, 4 x 4's, ABD pad x 2, Annie and tape. Lengthy discussion with patient today regarding treatment options for the right foot wound. Discussed clinical and radiographic signs of osteomyelitis. From patient reports he has been hoping to heal the right foot wound to allow him to use this limb for transfers however he understands that if the wound would heal he would not be able to resume normal ambulation without significant bracing. I explained to patient that due to extensive large open wound with multiple areas of underlying exposed bone with associated infection it is my opinion that the limb is not salvageable. He is aware that without appropriate treatment/amputation of the right foot he is at risk for loss of life. Patient voices understanding of our conversation and all questions are answered. Non-salvageable right foot. Recommend consultation for amputation of the RLE. Should patient refuse amputation palliative care discussion may be appropriate. Thank you for consulting podiatry to aid in the care of this patient. 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 Multiple recent extended hospitalizations. Hospitalization in the latter portion of 2019 for at [facility] patient underwent wound debridement and partial calcanectomy of the right LE on 02/09/2024. Bone pathology positive for OM and he was discharged on IV abx. He was rehospitalized at [facility] from May 24, 2024 to July 01, 2024 for decompensated heart failure, left BKA stump infection and chronic osteomyelitis of the right foot. During that visit he completed a course of IV cefepime and meropenem was discharged to home. Most recently patient was admitted to [facility] from July 02 to July 07. Patient was again discharged to home following that hospital stay and was brought back to [facility] 07/15/2024 via emergency transport with weakness and neck pain, bleeding from left leg stump wound. Patient lives at home alone. Multiple home health care reports of poor living conditions. Patient recently received his prosthetic for the left leg however he is unable to use this due to swelling and weakness. He reports using the right foot for transfers. Patient has home health care throughout the week with no additional support at home. He was using emergency transport to get to his appointments however his insurance is recently denied his ability to use this service and so has started using [place] [facility]. On previous admission to [facility] we had several lengthy discussions regarding the salvageability of the right lower extremity. I explained to patient that I do not believe his right lower extremity is salvageable and would recommend amputation. Patient was adamant that he did not wish to have the right lower extremity amputated and wished to discuss further with his weapons electrical engineering officer Dr. Mckenzie in [place]. He has been reportedly following up with Dr. Mckenzie once weekly following his discharge for dressing change and wound debridement. Allergies Allergy/AdvReac Type Severity Reaction Status Date / Time benzonatate AdvReac Intermediate choking, Verified 07/15/24 19:22 gagging Home Medications Medication Instructions Recorded Confirmed Type acetaminophen 325 mg tablet 650 mg PO QID PRN Pain 02/08/24 07/15/24 History (Tylenol) aspirin 81 mg tablet,delayed 81 mg PO DAILY 02/08/24 07/15/24 History release atorvastatin 80 mg tablet 80 mg PO DAILY 02/08/24 07/15/24 History levothyroxine 88 mcg tablet 88 mcg PO DAILYBB 02/08/24 07/15/24 History oxycodone 10 mg tablet 10 mg PO Q8H PRN Pain, Severe 02/08/24 07/15/24 History spironolactone 25 mg tablet 25 mg PO DAILY 02/09/24 07/15/24 History triamcinolone acetonide 0.1 % 1 applic topical TID 02/09/24 07/15/24 History lotion ammonium lactate 12 % lotion 1 applic topical DAILY DRY SKIN ON 05/24/24 07/15/24 History LEGS betamethasone dipropionate 0.05 % 1 applic topical BID 05/24/24 07/15/24 History topical cream loratadine 10 mg tablet 10 mg PO DAILY 05/24/24 07/15/24 History torsemide 20 mg tablet 40 mg PO QAM 05/24/24 07/15/24 History duloxetine 60 mg capsule,delayed 60 mg PO QAM #30 caps 07/01/24 07/15/24 Rx release pregabalin 75 mg capsule (Lyrica) 75 mg PO TID #90 caps 07/01/24 07/15/24 Rx warfarin 2 mg tablet 2 mg PO DAILY@1600 #30 tabs 07/01/24 07/15/24 Rx insulin syringe,safety needle 0.5 #200 ea 07/08/24 07/15/24 Rx mL 29 gauge x 1/2" (BD SafetyGlide Insulin Syringe) dicyclomine 10 mg capsule 10 mg PO QID PRN ABD PAIN 07/15/24 07/15/24 History ergocalciferol (vitamin D2) 1,250 1,250 mcg PO WK 07/15/24 07/15/24 History mcg (50,000 unit) capsule (Vitamin D2) ferrous sulfate 325 mg (65 mg 325 mg PO BID 07/15/24 07/15/24 History iron) tablet insulin aspart (niacinamide) 10 unit subcut AC 07/15/24 07/15/24 History (U-100) 100 unit/mL subcutaneous solution insulin glargine 100 unit/mL (3 12 unit subcut BID 07/15/24 07/15/24 History mL) subcutaneous pen (Lantus Solostar U-100 Insulin) lisinopril 5 mg tablet 5 mg PO DAILY 07/15/24 07/15/24 History metoprolol succinate 50 mg 150 mg PO QAM 07/15/24 07/15/24 History tablet,extended release 24 hr multivit,tx with iron 27 1 tab PO DAILY 07/15/24 07/15/24 History ng-txzfeak-zrhwy acid 0.4 mg-minerals tablet nystatin 100,000 unit/gram topical 1 applic topical BID 07/15/24 07/15/24 History powder omeprazole 20 mg capsule,delayed 20 mg PO BID 07/15/24 07/15/24 History release potassium chloride 20 mEq 20 meq PO BID 07/15/24 07/15/24 History tablet,extended release(part/cryst) sitagliptin phosphate 50 mg tablet 50 mg PO DAILY 07/15/24 07/15/24 History (Januvia) torsemide 20 mg tablet 20 mg PO QPM 07/15/24 07/15/24 History Patient History Medical History Osteomyelitis of foot, right, acute Diabetes Acute on chronic combined systolic and diastolic CHF (congestive heart failure) Depression with suicidal ideation Acute osteomyelitis of left foot T2DM (type 2 diabetes mellitus) CHF (congestive heart failure) Acute on chronic combined systolic (congestive) and diastolic (congestive) heart failure Diabetic ulcer of right foot Sustained ventricular tachycardia Pneumonia due to COVID-19 virus SARS-CoV-2 positive Sepsis Cellulitis of left lower leg Diabetic ulcer of left heel associated with diabetes mellitus due to underlying condition, limited to breakdown of skin Acute on chronic renal failure Acute hypoxemic respiratory failure Sleep apnea BIPAP Rectal bleeding Depression Deformity of foot Adams fracture Base of left fifth metatarsal, nonhealing x years Diabetic ulcer of left foot associated with type 2 diabetes mellitus, with fat layer exposed Hx of sepsis 06/2019 Arthritis Venous stasis ulcer of right lower leg with edema of right lower leg Hypokalemia Bacteremia due to group B Streptococcus Lymphedema Sustained VT (ventricular tachycardia) GERD (gastroesophageal reflux disease) Hx of osteomyelitis Hx of myocardial infarction found on testing Asthma well controlled, daily nursing home 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 CKD (chronic kidney disease) stage 3, GFR 30-59 ml/min Surgical History History of esophagogastroduodenoscopy (EGD) H/O foot surgery LEFT FOOT ULCER DEBRIDEMENT H/O cardiac radiofrequency ablation OCTOBER 2019 ([facility]) AT [facility] History of cardiac cath V. tach -- no stent. 06/2019. unsure where it was done History of sinus surgery Hx of tonsillectomy History of colonoscopy Hx of amputation of lesser toe H/O shoulder surgery left Family History Sister Family history of diabetes mellitus 2 Grandmother (Maternal) Family history of diabetes mellitus Grandfather (Maternal) Family history of diabetes mellitus Father Cancer Mother Cancer Other No family history of adverse response to anesthesia Social History Smoking Status: Never smoker Second Hand Exposure: No; Do You Dip or Chew Tobacco: No; Hx Alcohol Use: No Hx Substance Use: No Preferred Language: Tamazight Communication Ability: Effective Ice Crusher Required: No Beliefs That Will Affect Care: Spiritual marital status: Current Living Situation: Alone current occupational status: disabled How many Children do You have: 3 Feels Safe at Home: Yes Safety Concerns: Feels Safe At This Time Assistive Devices: Hospital Bed, Scooter/Electric Scooter, Walker and Wheelchair Review of Systems Review of Systems: Obese 58-year-old male with history of left amputation. Chronic right foot ulcer with osteomyelitis. Denies nausea, vomiting, fever, chills, shortness of breath, chest pain. Reports weakness, malaise, neck pain. All other systems were reviewed and negative unless stated in HPI. Physical Exam Physical Exam: Const: Obese, left limb amputation. Patient is somewhat lethargic and drifts in and out of sleep during our interview today. CV: Extremities: No cyanosis Capillary refill time is less than 3 seconds all digits of the right foot. Posterior tibial pulse lightly palpable right foot. Skin: Chronic venous stasis changes to the right lower leg with open wound. Neuro: Loss of protective sensation to the right foot Cognition: Orientation is intact to person, place and time. Focused lower extremity musculoskeletal exam: Leg: No pain with compression of the calf muscle. Right ankle: Edematous Right foot: Large ulceration of the plantar aspect of the right foot. Wound probes to the level of bone at the plantar calcaneus at the calcaneocuboid joint. Wound probes 3 cm along the lateral wall of the calcaneus. Wound bed is mixed granular, fibrotic, fascial, slough and bone tissue. Again noting significant purulent drainage to the dressing and wound bed with notable malodor. On compression of the foot and probing of the surrounding soft tissue structures are nonambulatory express any additional drainage. Results & Data Vital Signs (Past 12 Hours) Vital Signs Temp Pulse Resp BP Pulse Ox Pulse Ox O2 Del Method 07/17/24 13:22 36.7 C 75 18 107/68 94 Room Air 07/17/24 11:23 94 07/17/24 08:15 Room Air 07/17/24 07:08 36.7 C 73 16 105/66 95 Room Air O2 Flow Rate 07/17/24 13:22 07/17/24 11:23 0 07/17/24 08:15 07/17/24 07:08 Diagnostic Findings EXAM: CT Right Lower Extremity With Intravenous Contrast CLINICAL HISTORY: swelling. TECHNIQUE: Axial computed tomography images of the right lower extremity with intravenous contrast. CTDI is 14.18 mGy and DLP is 862.3 mGy-cm. Automated exposure control was utilized for the study. A dose lowering technique was utilized adhering to the principles of ALARA. CONTRAST: Patient received 120ml optiray 320 of IV contrast COMPARISON: No relevant prior studies available. FINDINGS: Bones/joints: No acute osseous abnormality involving the tibia and fibula. Please see the dedicated CT examination of the right foot for findings regarding the osseous structures of the foot. No dislocation. Soft tissues: Diffuse circumferential subcutaneous fat stranding and edema with extensive dermal thickening noted throughout the right calf from the included distal thigh through the ankle. No well-defined fluid collection or tracking subcutaneous emphysema. There is scattered subdermal punctate calcifications. Fatty infiltration of the muscle bundles. No intramuscular focal abnormality. IMPRESSION: Diffuse circumferential soft tissue swelling and edema with overlying dermal thickening. In the absence of traumatic injury, the differential considerations include venous stasis changes or cellulitis. No well- defined loculated abscess or tracking subcutaneous emphysema to suggest necrotizing fasciitis. Electronically signed by: Mychal Nuñez MD 07/16/24 00:27 AM EXAM: CT Right Lower Extremity With Intravenous Contrast, Foot CLINICAL HISTORY: swelling. TECHNIQUE: Axial computed tomography images of the right foot with intravenous contrast. CTDI is 14.18 mGy and DLP is 862.3 mGy-cm. Automated exposure control was utilized for the study. A dose lowering technique was utilized adhering to the principles of ALARA. CONTRAST: Patient received 120ml optiray 320 of IV contrast COMPARISON: No relevant prior studies available. FINDINGS: Bones/joints: Diffuse osteopenia and somewhat mottled sclerotic appearance of the osseous structures. There is cortical destruction involving the lateral and plantar aspect of the calcaneus, the cuboid and the proximal head of the fifth metatarsal bone. No pathologic fracture. Degenerative changes throughout the foot. There is a pes planus configuration of the arch. There is surgical absence of the distal phalanx of the first digit. No dislocation. Soft tissues: There is a soft tissue defect involving the plantar and lateral aspect of the hindfoot and midfoot. The soft tissue defect approximates the abnormal osseous structures detailed in the bone section with only 2-3 mm of soft tissue covering the osseous structures. In addition, there is diffuse subcutaneous edema, most prominent overlying the dorsum of the foot. No tracking subcutaneous emphysema or well- defined loculated fluid collection. No radiopaque foreign body. IMPRESSION: 1. Diffuse osteopenia and somewhat mottled sclerotic appearance of the osseous structures. There is cortical destruction involving the lateral and plantar aspect of the calcaneus, the cuboid and the proximal head of the fifth metatarsal bone. The appearance is most consistent with extensive osteomyelitis. No pathologic fracture. 2. Soft tissue defect involving the lateral and plantar aspect of the hind and midfoot. Diffuse soft tissue edema. In the absence of traumatic injury, the primary consideration is cellulitis. No tracking subcutaneous emphysema to suggest necrotizing fasciitis or well-defined abscess. Electronically signed by: Mychal Nuñez MD 07/16/24 00:32 AM PG Care Time/CCT Total # of Minutes Spent Total Time Spent with Patient: Total time spent is greater than 50% in coordination of care (as documented) at patient's floor/unit and/or counseling patient: Coding Level of Care Code 41997 INT INP/OBS CARE 3/75MIN Diagnoses Osteomyelitis of ankle and foot M86.9 Status post incision and drainage Z98.890 History of below-knee amputation of left lower extremity Z89.512 Diabetic ulcer of other part of right foot associated with diabetes mellitus due to underlying condition, with necrosis of bone E08.621; L97.514 Diabetic foot ulcer location: other Acute osteomyelitis of right calcaneus M86.171
--- NOTE | 2024-07-17 16:38 | Hospitalist Progress Note ---
Date of Service July 17, 2024 Assessment & Plan (1) Cellulitis of right leg: Plan 58-year-old man with PMH of HFrEF [EF 30 to 35%, TTE 2024] sp ICD, CAD, VT sp ablation, A-fib/DVT on Coumadin, HTN, HLD, pHTN,/OHS on BPAP, bronchial asthma, T2DM on insulin pump, hypothyroidism, CKD [baseline creatinine of 1.2-1.3], chronic anemia [baseline hemoglobin of 10], mood disorder, RLE osteomyelitis sp surgery, left foot osteomyelitis sp left BKA, morbid obesity who was recently admitted 05/24/2024 to 07/01/2024 for decompensated heart failure/LLE cellulitis and infected chronic right foot ulcer. Wound cultures were negative and patient completed cefepime and meropenem course. There was unsuccessful efforts for rehab/permanent placement at the time and patient was discharged home. Patient was admitted at [facility] July 02 to day after [facility] discharge as patient was found by home health nurse living in deplorable condition. Patient was discharged from the hospital despite social media executive notifying hospital providers that patient was not safe going home. Per patient's home health nursing reports, patient has trouble getting food/patient confused about medication/patient worried about bilateral painful leg swelling with intermittent bloody drainage/patient fell off of his chair and had to call [employer] twice to get him up/patient incapable of transfers and is with bowel incontinence. 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 Patient denied fever/chills/chest pain/cough/Headache. He is being managed for the following: BLE cellulitis Underlying RLE osteomyelitis Medical noncompliance No sepsis at presentation. Patient with recurrent lower extremity cellulitis likely secondary to noncompliance with medications/diet and patient's functional disability. Admitting imagings: CXR with mild pulmonary edema. C-spine CT and head CT with no acute finding. XR Left lower extremity with no acute bony abnormality, left below-knee amputation noted. Right foot x-ray and right foot CT - suggestive of extensive osteomyelitis. No pathologic fracture noted. CT right lower extremity - suggestive of cellulitis. CT Left knee and BKA stump - suggestive of cellulitis. Patient started on doxycycline 07/16, continue. c/w cefepime 07/16, c/w probiotic ID consult, podiatry consult. WOCN consult Follow admitting blood culture. Atrial fibrillation: Rate controlled. hold Coumadin and continue with heparin drip for now in case any surgical procedures needed until podiatry evaluation. Continue with home metoprolol dose. Acute on chronic heart failure with reduced ejection fraction: Recent echo with EF of 30 to 35%, BLE swelling noted, CXR with pulmonary edema at presentation. Likely secondary to medication noncompliance. For now we will continue with home diuretics regimen, continue with fluid restriction. Monitor I's and O's, monitor and replete electrolytes. Adult failure to thrive: Medication noncompliance Inability to take care of the self Patient has had numerous hospitalizations in regards to failure to thrive at home Dietary consult, case management consult. PT/OT. Other chronic medical conditions: Continue with/resume home meds as and when able. T2DM: Sliding scale insulin. PVD: Status post left BKA amputation. Continue with home aspirin and Lipitor. Morbid obesity: Likely contributed to PVD and recurrent cellulitis. Counseling done. CKD: CKD stage III, stable. NINA on CPAP: Continue CPAP at bedtime. Cardiac defibrillator in situ: Noted Major depression disorder: Continue with duloxetine Lymphedema: Likely contributing to cellulitis. Follow-up with lymphedema clinic as an outpatient. Chronic pain syndrome: c/w oxy and lyrica DVT px: Hep drip Dispo, will need placement, pt/ot, cm Admission and Anticipated Discharge Date Admission Date: July 15, 2024 Subjective Patient was seen and examined at bedside. Patient was lying in bed, on room air, NAD, resting comfortably. Patient reports leg pain pain, reports feeling weak. Pt reports stool forming up. Has been afebrile. Physical Exam Physical Exam: GENERAL: Apathetic, morbidly obese, no respiratory distress SKIN: Pallor, warm HEENT: [place] palpebral conjunctivae, no ptosis, moist buccal mucosa NECK : Supple, short neck, no tenderness CHEST : Decreased breath sounds, no tenderness HEART : Irregular, diminished S1-S2 ABDOMEN: distention, no tenderness EXTREMITIES : Tender erythematous and edematous RLE with dressing over wound, left amputation stump induration and edema with tenderness with dressing NEUROLOGIC : Coherent, no facial asymmetry, no other gross focality Results & Data Results & Data Vital Signs (Past 12 Hours) Vital Signs Temp Pulse Resp BP Pulse Ox Pulse Ox O2 Del Method 07/17/24 13:22 36.7 C 75 18 107/68 94 Room Air 07/17/24 11:23 94 07/17/24 08:15 Room Air 07/17/24 07:08 36.7 C 73 16 105/66 95 Room Air O2 Flow Rate 07/17/24 13:22 07/17/24 11:23 0 07/17/24 08:15 07/17/24 07:08
[2024-07-18 06:13] LABS: Hematocrit (blood only) 32.8 % (42.0-52.0); Hemoglobin 10.7 g/dl (14.0-18.0); Mean Corpuscular Hemoglobin 27.5 pg (25.0-34.0); Mean Corpuscular Hgb Conc 32.6 g/dL (32.0-36.0); Mean Corpuscular Volume 84.3 fL (80.0-100.0); Mean Platelet Volume 9.9 fL (9.4-12.4); Platelet Count 288 K/uL (130-400); RDW Coefficient of Variation 16.7 % (11.5-14.5); RDW Standard Deviation 51.2 fL (36.4-46.3); Red Blood Count 3.89 M/uL (4.70-6.10); White Blood Count 4.93 K/ul (4.8-10.8)
[2024-07-18 06:37] LABS: ANTI-Xa, UFH(UnfractionatedHep 0.26 IU/ml (0.3-0.7); INR 1.4 (0.9-1.1); Prothrombin Time 14.5 Seconds (9.0-12.0)
[2024-07-18 06:38] LABS: BUN Creatinine Ratio 16.3 (10-20); Calcium 8.4 mg/dl (8.6-10.3); Creatinine Clr Calc Pharmacy 93.2 ml/min; Magnesium 1.8 mg/dl (1.7-2.4); Phosphorus 3.6 mg/dl (2.5-4.9); Potassium 3.7 mmol/L (3.5-5.1)
[2024-07-18 13:40] LABS: ANTI-Xa, UFH(UnfractionatedHep 0.35 IU/ml (0.3-0.7)
--- NOTE | 2024-07-18 14:10 | Infectious Disease Consult ---
Date of Service July 18, 2024 Attending addendum This is a 58 y/o morbidly obese male w/ hx of HfrEF s/p ICD, CAD, A fib/DVT on coumadin, IDDM2, CKD, and RLE OM s/p surgery, and L foot OM s/p L BKA, recently hospitalized 05/24-07/01/24 for decompensated HF, infected R foot ulcer and LLE cellulitis, who was admitted 07/15/24 for presumed cellulitis of L BKA stump infection and underlying RLE OM. Recently treated for L BKA stump infection as well. CT showed diffuse circumferential soft tissue swelling and edema on RLE w/ XR showing cortical destruction involving the lateral and plantar aspect of the calcaneus, the cuboid and the proximal head of the fifth metatarsal bone, consistent with extensive osteomyelitis. Blood cx (07/15) NGTD. Physical exam showes plantar/calcaneal wounds on R foot, probing to bone. The patient reports tenderness on L BKA stump where faint erythema and shallow ulcers are noted. Currently on doxycycline and cefepime. As the patient refuses amputation, we will focus on soft tissue treatment w/ aggressive wound care: last dose 07/29/24 granted the patient clinically improves. However, relapsed infection is highl likely. Switch doxycycline to linezolid po, continuing cefepime. Previously, he had PSA that was resistent to cefepime, but he is doing well for now. But if he clinically deteriorates, we may need a different abx. I saw and evaluated the patient today. I have reviewed the trainee note and agree. Telehealth Information I performed this visit using a real-time telehealth connection between my location and the patients location ([facility]). After connecting through interactive tele-video, patient was identified by name and date of and/or wristband check.Patient (or authorized healthcare retail sales representative) was informed that this was a telemedicine visit and it was being conducted confidentially over secure lines. My office door was closed and no one else was present in the room with me.Patient (or authorized healthcare retail sales representative) provided consent to proceed with the visit, expressed an understanding of privacy and security of the telemedicine visit, and gave permission to have a hospital retail sales representative in the room in order to assist with the visit and to conduct portions of the visit, as needed. I informed the patient (or authorized healthcare retail sales representative) that I reviewed their record and presented the opportunity for them to ask any questions regarding the visit today. The patient agreed to participate. Assessment & Plan (1) Osteomyelitis of ankle and foot: (2) Cellulitis of left lower leg: Plan Patient with growth osteomyelitis on his right foot, agree with surgical colleagues this is a nonsalvageable limb and we will not be cured with antibiotics alone. It does seem like patient did continue to refuse amputation per our discussion although when I initiated conversation he was unaware of any infection any stated he has no idea what was going on. Unclear if he has capacity. In any case it is reasonable to do we can at this point would treating a potential soft tissue infection, we have made patient aware that he is likely to come back to the hospital due to further infections, we do not think this is curative and also recommend amputation. - Two weeks of IV cefepime 2 g Q 8 hours, Linezolid p.o. 600 mg q.12 hours EOT 07/30/2024 - CMP, CBC weekly - recommend amputation of right lower extremity. Appreciate consultation, Infectious Disease will sign off at this time, please do not hesitate to reach out for any further questions or concerns. Robert Calvert MD PGY5 Infectious Disease History of Present Illness History of Present Illness 58M w PMHx of Afib/DVT on warfarin? Systolic CHF w EF 35% s/p ICD, Dm2, Hx of LLE OM s/p BKA, recent admit July 01 for Infected R foot ulcer/cellulitis. His RLE does seem to be non-salvageable per surgical colleagues however patient is reluctant for amputation. At previous hospitalization it does not seem this area was in active infection, and was treated with a short course for LLE stump cellulitis. Patient largely does not seem to be able to care for himself effectively, we are currently pending possible amputation. CT of both lower extremities with evidence of soft tissue infection. Currently stable without significant fevers, WBC. On Cefepime/Doxycycline. Allergies Allergy/AdvReac Type Severity Reaction Status Date / Time benzonatate AdvReac Intermediate choking, Verified 07/15/24 19:22 gagging Home Medications Medication Instructions Recorded Confirmed Type acetaminophen 325 mg tablet 650 mg PO QID PRN Pain 02/08/24 07/15/24 History (Tylenol) aspirin 81 mg tablet,delayed 81 mg PO DAILY 02/08/24 07/15/24 History release atorvastatin 80 mg tablet 80 mg PO DAILY 02/08/24 07/15/24 History levothyroxine 88 mcg tablet 88 mcg PO DAILYBB 02/08/24 07/15/24 History oxycodone 10 mg tablet 10 mg PO Q8H PRN Pain, Severe 02/08/24 07/15/24 History spironolactone 25 mg tablet 25 mg PO DAILY 02/09/24 07/15/24 History triamcinolone acetonide 0.1 % 1 applic topical TID 02/09/24 07/15/24 History lotion ammonium lactate 12 % lotion 1 applic topical DAILY DRY SKIN ON 05/24/24 07/15/24 History LEGS betamethasone dipropionate 0.05 % 1 applic topical BID 05/24/24 07/15/24 History topical cream loratadine 10 mg tablet 10 mg PO DAILY 05/24/24 07/15/24 History torsemide 20 mg tablet 40 mg PO QAM 05/24/24 07/15/24 History duloxetine 60 mg capsule,delayed 60 mg PO QAM #30 caps 07/01/24 07/15/24 Rx release pregabalin 75 mg capsule (Lyrica) 75 mg PO TID #90 caps 07/01/24 07/15/24 Rx warfarin 2 mg tablet 2 mg PO DAILY@1600 #30 tabs 07/01/24 07/15/24 Rx insulin syringe,safety needle 0.5 #200 ea 07/08/24 07/15/24 Rx mL 29 gauge x 1/2" (BD SafetyGlide Insulin Syringe) dicyclomine 10 mg capsule 10 mg PO QID PRN ABD PAIN 07/15/24 07/15/24 History ergocalciferol (vitamin D2) 1,250 1,250 mcg PO WK 07/15/24 07/15/24 History mcg (50,000 unit) capsule (Vitamin D2) ferrous sulfate 325 mg (65 mg 325 mg PO BID 07/15/24 07/15/24 History iron) tablet insulin aspart (niacinamide) 10 unit subcut AC 07/15/24 07/15/24 History (U-100) 100 unit/mL subcutaneous solution insulin glargine 100 unit/mL (3 12 unit subcut BID 07/15/24 07/15/24 History mL) subcutaneous pen (Lantus Solostar U-100 Insulin) lisinopril 5 mg tablet 5 mg PO DAILY 07/15/24 07/15/24 History metoprolol succinate 50 mg 150 mg PO QAM 07/15/24 07/15/24 History tablet,extended release 24 hr multivit,tx with iron 27 1 tab PO DAILY 07/15/24 07/15/24 History cp-xyorjcs-pzgaz acid 0.4 mg-minerals tablet nystatin 100,000 unit/gram topical 1 applic topical BID 07/15/24 07/15/24 History powder omeprazole 20 mg capsule,delayed 20 mg PO BID 07/15/24 07/15/24 History release potassium chloride 20 mEq 20 meq PO BID 07/15/24 07/15/24 History tablet,extended release(part/cryst) sitagliptin phosphate 50 mg tablet 50 mg PO DAILY 07/15/24 07/15/24 History (Januvia) torsemide 20 mg tablet 20 mg PO QPM 07/15/24 07/15/24 History Patient History Medical History Osteomyelitis of foot, right, acute Diabetes Acute on chronic combined systolic and diastolic CHF (congestive heart failure) Depression with suicidal ideation Acute osteomyelitis of left foot T2DM (type 2 diabetes mellitus) CHF (congestive heart failure) Acute on chronic combined systolic (congestive) and diastolic (congestive) heart failure Diabetic ulcer of right foot Sustained ventricular tachycardia Pneumonia due to COVID-19 virus SARS-CoV-2 positive Sepsis Cellulitis of left lower leg Diabetic ulcer of left heel associated with diabetes mellitus due to underlying condition, limited to breakdown of skin Acute on chronic renal failure Acute hypoxemic respiratory failure Sleep apnea BIPAP Rectal bleeding Depression Deformity of foot Adams fracture Base of left fifth metatarsal, nonhealing x years Diabetic ulcer of left foot associated with type 2 diabetes mellitus, with fat layer exposed Hx of sepsis 06/2019 Arthritis Venous stasis ulcer of right lower leg with edema of right lower leg Hypokalemia Bacteremia due to group B Streptococcus Lymphedema Sustained VT (ventricular tachycardia) GERD (gastroesophageal reflux disease) Hx of osteomyelitis Hx of myocardial infarction found on testing Asthma well controlled, daily mcc 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 CKD (chronic kidney disease) stage 3, GFR 30-59 ml/min Surgical History History of esophagogastroduodenoscopy (EGD) H/O foot surgery LEFT FOOT ULCER DEBRIDEMENT H/O cardiac radiofrequency ablation OCTOBER 2019 ([facility]) AT [facility] History of cardiac cath V. tach -- no stent. 06/2019. unsure where it was done History of sinus surgery Hx of tonsillectomy History of colonoscopy Hx of amputation of lesser toe H/O shoulder surgery left Family History Sister Family history of diabetes mellitus 2 Grandmother (Maternal) Family history of diabetes mellitus Grandfather (Maternal) Family history of diabetes mellitus Father Cancer Mother Cancer Other No family history of adverse response to anesthesia Social History Smoking Status: Never smoker Second Hand Exposure: No; Do You Dip or Chew Tobacco: No; Hx Alcohol Use: No Hx Substance Use: No Preferred Language: Marshallese Communication Ability: Effective Cherry Dipper Required: No Beliefs That Will Affect Care: Spiritual marital status: Current Living Situation: Alone current occupational status: disabled How many Children do You have: 3 Feels Safe at Home: Yes Safety Concerns: Feels Safe At This Time Assistive Devices: Hospital Bed, Scooter/Electric Scooter, Walker and Wheelchair Review of Systems CONSTITUTIONAL: Denies weight loss, fever and chills. HEENT: Denies changes in vision and hearing. RESPIRATORY: Denies SOB and cough. CV: Denies palpitations and CP. GI: Denies abdominal pain, nausea, vomiting and diarrhea. : Denies dysuria and urinary frequency. MSK: Denies myalgia and joint pain. SKIN: Denies rash and pruritus. NEUROLOGICAL: Denies headache and syncope PSYCHIATRIC: Denies recent changes in mood. Denies anxiety and depression. Physical Exam GENERAL: Appears as stated age. No acute distress. SKIN: left BKA, right leg significantly swollen, mildly erythematous with multiple superficial skin ulcerations with active bleeding on anterior tibia, posterior foot with gross protruding bony material through a large plantar stage IV ulceration. NEUROLOGIC: No focal neurological deficits. Cranial nerves grossly intact. Results & Data Vital Signs (Past 12 Hours) Vital Signs Temp Pulse Resp BP Pulse Ox O2 Del Method 07/18/24 11:52 36.6 C 69 17 124/76 96 Room Air 07/18/24 09:44 77 109/71 07/18/24 07:56 Room Air 07/18/24 07:36 36.3 C L 73 16 138/78 95 Room Air Laboratory Results 07/15/24 16:00 Aerobic Blood Culture - Preliminary Blood No growth in Aerobic bottle after 48 hours. Anaerobic Blood Culture - Final 07/15/24 16:00 Aerobic Blood Culture - Preliminary Blood No growth in Aerobic bottle after 48 hours. Anaerobic Blood Culture - Final 07/18/24 07/18/24 07/18/24 13:00 11:47 07:46 WBC RBC Hgb Hct MCV MCH MCHC RDW Std Deviation RDW Coeff of Мария Plt Count MPV PT INR Heparin Anti-Xa, Unfract 0.35 Sodium Potassium Chloride Carbon Dioxide Anion Gap BUN Creatinine Est Cr Clr Drug Dosing eGFR BUN/Creatinine Ratio Glucose POC Glucose 197 H 199 H Calcium Phosphorus Magnesium 07/18/24 07/17/24 07/17/24 05:36 20:20 16:32 WBC 4.93 RBC 3.89 L Hgb 10.7 L Hct 32.8 L MCV 84.3 MCH 27.5 MCHC 32.6 RDW Std Deviation 51.2 H RDW Coeff of Мария 16.7 H Plt Count 288 MPV 9.9 PT 14.5 H INR 1.4 H Heparin Anti-Xa, Unfract 0.26 L Sodium 134 L Potassium 3.7 Chloride 100 Carbon Dioxide 28 Anion Gap 6 BUN 21 Creatinine 1.29 Est Cr Clr Drug Dosing 93.2 eGFR 63.48 BUN/Creatinine Ratio 16.3 Glucose 203 H POC Glucose 163 H 188 H Calcium 8.4 L Phosphorus 3.6 Magnesium 1.8 Diagnostic Findings Chest X-Ray 07/15/24 16:59 Chest radiograph, one view History: Chest pain. Wound clinic Comparison: 05/23/2024 Findings: Single AP view of the chest performed. No focal consolidation or pleural effusion. There is mild perihilar opacity. No pneumothorax. The heart size appears enlarged. Left chest wall single-lead AICD. Indistinct appearing pulmonary vascularity. No evidence for lymphadenopathy. No visualized bony or soft tissue abnormality. Impression: Cardiomegaly. Mild perihilar pulmonary edema. Electronically signed by Nader Medrano 07-15-2024 7:[address] 07/15/24 17:00 CT cervical spine without IV contrast History: Pain Comparison: None Technique: Using multidetector thin collimation helical acquisition technique, axial, coronal and sagittal CT images through the cervical spine were obtained without intravenous contrast. Dose reduction techniques were achieved by using automatic exposure control and/or adjustment of mA and/or kV according to patient size and/or use of iterative reconstruction technique. Findings: The cervical vertebrae are normally aligned. Straightened cervical lordosis. No acute fracture or subluxation. No prevertebral edema. Severe degenerative disc height loss at C5-6, where there is a prominent anterior bridging osteophyte. There are moderate multilevel degenerative changes elsewhere throughout the cervical spine. Mature bony degenerative fusion across the right C2-3 facet joint. No abnormality of the paraspinous soft tissues. Impression: No acute fracture or traumatic subluxation. Electronically signed by Nader Medrano 07-15-2024 7:[address] 07/15/24 17:00 CT head without contrast History: Headache Comparison: None Technique: Using multidetector thin collimation helical acquisition technique, axial, coronal and sagittal CT images from the skull base to the vertex were obtained without intravenous contrast. Dose reduction techniques were achieved by using automatic exposure control and/or adjustment of mA and/or kV according to patient size and/or use of iterative reconstruction technique. Findings: No intracranial hemorrhage, mass-effect, or midline shift. The ventricles are proportionate to the cerebral sulci. The simons to white matter differentiation of the cerebral hemispheres is preserved. The basal cisterns are patent. The visualized paranasal sinuses are clear. Mastoid air cells are clear. Impression: No acute intracranial pathology. Electronically signed by Nader Medrano 07-15-2024 7:10 PM Tibia/Fibula X-Ray 07/15/24 17:02 Study: Left tib-fib 2 views, right tib-fib 2 views History: Pain Comparison: None Findings: There is no acute fracture or dislocation. Alignment is anatomic. Joint spaces are well maintained. Below-knee amputation of the left knee seen at the proximal tibial and fibular diaphyses where there is healing callus formation. There is generalized subcutaneous edema about the right lower leg, as well as about to the remaining portion of the left lower leg. There is heavy arterial sclerosis seen. Bone mineralization is normal. Impression: No acute bony abnormality. Left below-knee amputation. Generalized soft tissue edema bilaterally. Electronically signed by Nader Medrano 07-15-2024 7:56 PM Foot X-Ray 07/15/24 17:03 Study: Right foot 2 views History: Wound clinic Comparison: None Findings/impression: A tiny thin curvilinear foreign density is a within the plantar aspect of the soft tissues of the great toe. The tuft of the distal phalanx of the great toe appears blunted, however which appears well-corticated, likely reflecting chronic erosion. The remaining digits, 2-5, appear grossly unremarkable. The soft tissues of the great toe are swollen. There is generalized soft tissue swelling about the foot. Erosive changes with diminished overall size about the plantar aspect of the entire calcaneus. Small and heterotopic ossification within the Achilles tendon. Heavy arterial sclerosis. Electronically signed by Nader Medrano 07-15-2024 7:56 PM Tibia/Fibula X-Ray 07/15/24 17:03 Study: Left tib-fib 2 views, right tib-fib 2 views History: Pain Comparison: None Findings: There is no acute fracture or dislocation. Alignment is anatomic. Joint spaces are well maintained. Below-knee amputation of the left knee seen at the proximal tibial and fibular diaphyses where there is healing callus formation. There is generalized subcutaneous edema about the right lower leg, as well as about to the remaining portion of the left lower leg. There is heavy arterial sclerosis seen. Bone mineralization is normal. Impression: No acute bony abnormality. Left below-knee amputation. Generalized soft tissue edema bilaterally. Electronically signed by Nader Medrano 07-15-2024 7:[address] 07/15/24 21:13 Exam(s): CT RIGHT FOOT With Contrast IV Amt: 120ml optiray 320 EXAM: CT Right Lower Extremity With Intravenous Contrast, Foot CLINICAL HISTORY: swelling. TECHNIQUE: Axial computed tomography images of the right foot with intravenous contrast. CTDI is 14.18 mGy and DLP is 862.3 mGy-cm. Automated exposure control was utilized for the study. A dose lowering technique was utilized adhering to the principles of ALARA. CONTRAST: Patient received 120ml optiray 320 of IV contrast COMPARISON: No relevant prior studies available. FINDINGS: Bones/joints: Diffuse osteopenia and somewhat mottled sclerotic appearance of the osseous structures. There is cortical destruction involving the lateral and plantar aspect of the calcaneus, the cuboid and the proximal head of the fifth metatarsal bone. No pathologic fracture. Degenerative changes throughout the foot. There is a pes planus configuration of the arch. There is surgical absence of the distal phalanx of the first digit. No dislocation. Soft tissues: There is a soft tissue defect involving the plantar and lateral aspect of the hindfoot and midfoot. The soft tissue defect approximates the abnormal osseous structures detailed in the bone section with only 2-3 mm of soft tissue covering the osseous structures. In addition, there is diffuse subcutaneous edema, most prominent overlying the dorsum of the foot. No tracking subcutaneous emphysema or well- defined loculated fluid collection. No radiopaque foreign body. IMPRESSION: 1. Diffuse osteopenia and somewhat mottled sclerotic appearance of the osseous structures. There is cortical destruction involving the lateral and plantar aspect of the calcaneus, the cuboid and the proximal head of the fifth metatarsal bone. The appearance is most consistent with extensive osteomyelitis. No pathologic fracture. 2. Soft tissue defect involving the lateral and plantar aspect of the hind and midfoot. Diffuse soft tissue edema. In the absence of traumatic injury, the primary consideration is cellulitis. No tracking subcutaneous emphysema to suggest necrotizing fasciitis or well-defined abscess. Electronically signed by: Mychal Nuñez MD 07/16/24 00:[address] 07/15/24 21:13 Exam(s): CT EXTREMITY RIGHT LOWER With Contrast IV Amt: 120ml optiray 320 EXAM: CT Right Lower Extremity With Intravenous Contrast CLINICAL HISTORY: swelling. TECHNIQUE: Axial computed tomography images of the right lower extremity with intravenous contrast. CTDI is 14.18 mGy and DLP is 862.3 mGy-cm. Automated exposure control was utilized for the study. A dose lowering technique was utilized adhering to the principles of ALARA. CONTRAST: Patient received 120ml optiray 320 of IV contrast COMPARISON: No relevant prior studies available. FINDINGS: Bones/joints: No acute osseous abnormality involving the tibia and fibula. Please see the dedicated CT examination of the right foot for findings regarding the osseous structures of the foot. No dislocation. Soft tissues: Diffuse circumferential subcutaneous fat stranding and edema with extensive dermal thickening noted throughout the right calf from the included distal thigh through the ankle. No well-defined fluid collection or tracking subcutaneous emphysema. There is scattered subdermal punctate calcifications. Fatty infiltration of the muscle bundles. No intramuscular focal abnormality. IMPRESSION: Diffuse circumferential soft tissue swelling and edema with overlying dermal thickening. In the absence of traumatic injury, the differential considerations include venous stasis changes or cellulitis. No well- defined loculated abscess or tracking subcutaneous emphysema to suggest necrotizing fasciitis. Electronically signed by: Mychal Nuñez MD 07/16/24 00:[address] 07/15/24 21:15 Exam(s): CT LEFT KNEE With Contrast IV Amt: 120ml optiray 320 EXAM: CT Left Lower Extremity With Intravenous Contrast, Knee CLINICAL HISTORY: bka stump swelling. TECHNIQUE: Axial computed tomography images of the left knee with intravenous contrast. CTDI is 14.18 mGy and DLP is 862.3 mGy-cm. Automated exposure control was utilized for the study. A dose lowering technique was utilized adhering to the principles of ALARA. CONTRAST: Patient received 120ml optiray 320 of IV contrast COMPARISON: No relevant prior studies available. FINDINGS: Bones/joints: The regional osseous structures are intact. There are reactive changes along the distal aspect of the left tibial and fibular stumps. No cortical destruction or acute periosteal reaction. No dislocation. Soft tissues: The left BKA is noted. There is diffuse subcutaneous fat stranding and edema throughout the included left knee and BKA with asymmetric edema and dermal thickening involving the dependent stump. No loculated fluid collection. No tracking subcutaneous emphysema. IMPRESSION: 1. The left BKA is noted. There is diffuse subcutaneous fat stranding and edema throughout the included left knee and BKA with asymmetric edema and dermal thickening involving the dependent stump. No loculated fluid collection. No tracking subcutaneous emphysema to suggest necrotizing fasciitis. The primary consideration is dependent venous stasis changes or cellulitis. 2. No findings to suggest osteomyelitis of the regional osseous structures. No acute osseous abnormality. Electronically signed by: Mychal Nuñez MD 07/16/24 00:54 AM
--- NOTE | 2024-07-18 14:36 | Hospitalist Progress Note ---
Date of Service July 18, 2024 Assessment & Plan (1) Cellulitis of right leg: Plan 58-year-old man with PMH of HFrEF [EF 30 to 35%, TTE 2024] sp ICD, CAD, VT sp ablation, A-fib/DVT on Coumadin, HTN, HLD, pHTN,/OHS on BPAP, bronchial asthma, T2DM on insulin pump, hypothyroidism, CKD [baseline creatinine of 1.2-1.3], chronic anemia [baseline hemoglobin of 10], mood disorder, RLE osteomyelitis sp surgery, left foot osteomyelitis sp left BKA, morbid obesity who was recently admitted 05/24/2024 to 07/01/2024 for decompensated heart failure/LLE cellulitis and infected chronic right foot ulcer. Wound cultures were negative and patient completed cefepime and meropenem course. There was unsuccessful efforts for rehab/permanent placement at the time and patient was discharged home. Patient was admitted at [facility] July 02 to day after [facility] discharge as patient was found by home health nurse living in deplorable condition. Patient was discharged from the hospital despite social psychologist notifying hospital providers that patient was not safe going home. Per patient's home health nursing reports, patient has trouble getting food/patient confused about medication/patient worried about bilateral painful leg swelling with intermittent bloody drainage/patient fell off of his chair and had to call [employer] twice to get him up/patient incapable of transfers and is with bowel incontinence. 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 Patient denied fever/chills/chest pain/cough/Headache. He is being managed for the following: BLE cellulitis Underlying RLE osteomyelitis Medical noncompliance No sepsis at presentation. Patient with recurrent lower extremity cellulitis likely secondary to noncompliance with medications/diet and patient's functional disability. Admitting imagings: CXR with mild pulmonary edema. C-spine CT and head CT with no acute finding. XR Left lower extremity with no acute bony abnormality, left below-knee amputation noted. Right foot x-ray and right foot CT - suggestive of extensive osteomyelitis. No pathologic fracture noted. CT right lower extremity - suggestive of cellulitis. CT Left knee and BKA stump - suggestive of cellulitis. Doxycycline 07/16 and cefepime 07/16 ---> ID evaled 07/18, recs are iv cefepime 2g q8h, linezolid 600 mg q12h EOT 07/30/2024, recommends amputation of RLE. Linezolid and duloxetine has severe interaction of serotonin syndrome, d/w ID, plan to decrease dose of duloxetine to half and c/w linezolid Podiatry evaled, recs are RLE amputation vs palliative care. I d/w patient in detail specialist's recs on 07/18, he declines both amputation and palliative care involvement. WOCN consult Follow admitting blood culture. Atrial fibrillation: Rate controlled. continue with heparin bridge, start home Coumadin as no plan for procedure (pt doesn't want amputation). Continue with home metoprolol dose. Acute on chronic heart failure with reduced ejection fraction: Recent echo with EF of 30 to 35%, BLE swelling noted, CXR with pulmonary edema at presentation. Likely secondary to medication noncompliance. For now we will continue with home diuretics regimen, continue with fluid restriction. Monitor I's and O's, monitor and replete electrolytes. Adult failure to thrive: Medication noncompliance Inability to take care of the self Patient has had numerous hospitalizations in regards to failure to thrive at home Dietary consult, case management consult. PT/OT. Other chronic medical conditions: Continue with/resume home meds as and when able. T2DM: Sliding scale insulin. PVD: Status post left BKA amputation. Continue with home aspirin and Lipitor. Morbid obesity: Likely contributed to PVD and recurrent cellulitis. Counseling done. CKD: CKD stage III, stable. NINA on CPAP: Continue CPAP at bedtime. Cardiac defibrillator in situ: Noted Major depression disorder: Continue with duloxetine Lymphedema: Likely contributing to cellulitis. Follow-up with lymphedema clinic as an outpatient. Chronic pain syndrome: c/w oxy and lyrica DVT px: Hep drip Dispo, will need placement, pt/ot, cm Admission and Anticipated Discharge Date Admission Date: July 15, 2024 Subjective Patient was seen and examined at bedside. Patient was lying in bed, on room air, NAD, resting comfortably. Patient reports leg pain pain, reports feeling weak. Pt reports no loose stool. Has been afebrile. Physical Exam Physical Exam: GENERAL: Apathetic, morbidly obese, no respiratory distress SKIN: Pallor, warm HEENT: [place] palpebral conjunctivae, no ptosis, moist buccal mucosa NECK : Supple, short neck, no tenderness CHEST : Decreased breath sounds, no tenderness HEART : Irregular, diminished S1-S2 ABDOMEN: distention, no tenderness EXTREMITIES : Tender erythematous and edematous RLE with dressing over wound, left amputation stump induration and edema with tenderness with dressing NEUROLOGIC : Coherent, no facial asymmetry, no other gross focality Results & Data Results & Data Vital Signs (Past 12 Hours) Vital Signs Temp Pulse Resp BP Pulse Ox O2 Del Method 07/18/24 11:52 36.6 C 69 17 124/76 96 Room Air 07/18/24 09:44 77 109/71 07/18/24 07:56 Room Air 07/18/24 07:36 36.3 C L 73 16 138/78 95 Room Air
[2024-07-18] MEDS: WARFARIN SOD 2 MG TAB PO SCH (16:14)
[2024-07-18] MEDS: LINEZOLID 600 MG TAB PO SCH (21:17)
[2024-07-19 07:45] LABS: Hematocrit (blood only) 35.9 % (42.0-52.0); Hemoglobin 11.4 g/dl (14.0-18.0); Mean Corpuscular Hemoglobin 26.8 pg (25.0-34.0); Mean Corpuscular Hgb Conc 31.8 g/dL (32.0-36.0); Mean Corpuscular Volume 84.5 fL (80.0-100.0); Mean Platelet Volume 9.5 fL (9.4-12.4); Platelet Count 308 K/uL (130-400); RDW Coefficient of Variation 16.9 % (11.5-14.5); Red Blood Count 4.25 M/uL (4.70-6.10)
[2024-07-19 08:04] LABS: BUN Creatinine Ratio 15.5 (10-20); Calcium 8.4 mg/dl (8.6-10.3); Creatinine Clr Calc Pharmacy 74.7 ml/min; Magnesium 1.8 mg/dl (1.7-2.4); Phosphorus 3.2 mg/dl (2.5-4.9); Potassium 3.9 mmol/L (3.5-5.1)
[2024-07-19 08:26] LABS: INR 1.4 (0.9-1.1); Prothrombin Time 15.1 Seconds (9.0-12.0)
[2024-07-19] MEDS: DULoxetine HCL 30 MG CAP PO SCH (08:26)
[2024-07-19] MEDS: ERGOCALCIFEROL 1250 MCG (50,000 UNITS) CAP PO SCH (08:27)
--- NOTE | 2024-07-19 16:27 | Hospitalist Progress Note ---
Date of Service July 19, 2024 Assessment & Plan (1) Cellulitis of right leg: Plan 58-year-old man with PMH of HFrEF [EF 30 to 35%, TTE 2024] sp ICD, CAD, VT sp ablation, A-fib/DVT on Coumadin, HTN, HLD, pHTN,/OHS on BPAP, bronchial asthma, T2DM on insulin pump, hypothyroidism, CKD [baseline creatinine of 1.2-1.3], chronic anemia [baseline hemoglobin of 10], mood disorder, RLE osteomyelitis sp surgery, left foot osteomyelitis sp left BKA, morbid obesity who was recently admitted 05/24/2024 to 07/01/2024 for decompensated heart failure/LLE cellulitis and infected chronic right foot ulcer. Wound cultures were negative and patient completed cefepime and meropenem course. There was unsuccessful efforts for rehab/permanent placement at the time and patient was discharged home. Patient was admitted at [facility] July 02 to day after [facility] discharge as patient was found by home health nurse living in deplorable condition. Patient was discharged from the hospital despite social services counselor notifying hospital providers that patient was not safe going home. Per patient's home health nursing reports, patient has trouble getting food/patient confused about medication/patient worried about bilateral painful leg swelling with intermittent bloody drainage/patient fell off of his chair and had to call [employer] twice to get him up/patient incapable of transfers and is with bowel incontinence. 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 Patient denied fever/chills/chest pain/cough/Headache. He is being managed for the following: BLE cellulitis Underlying RLE osteomyelitis Medical noncompliance No sepsis at presentation. Patient with recurrent lower extremity cellulitis likely secondary to noncompliance with medications/diet and patient's functional disability. Admitting imagings: CXR with mild pulmonary edema. C-spine CT and head CT with no acute finding. XR Left lower extremity with no acute bony abnormality, left below-knee amputation noted. Right foot x-ray and right foot CT - suggestive of extensive osteomyelitis. No pathologic fracture noted. CT right lower extremity - suggestive of cellulitis. CT Left knee and BKA stump - suggestive of cellulitis. Doxycycline 07/16 and cefepime 07/16 ---> ID evaled 07/18, recs are iv cefepime 2g q8h, linezolid 600 mg q12h EOT 07/30/2024, recommends amputation of RLE. Linezolid and duloxetine has severe interaction of serotonin syndrome, d/w ID 07/18, plan to decrease dose of duloxetine to half and c/w linezolid Podiatry evaled, recs are RLE amputation vs palliative care. I d/w patient in detail specialist's recs on 07/18 and 07/19, he declines both amputation and palliative care involvement. WOCN consult Follow admitting blood culture. Acute kidney injury: volume overload status, hold lisinopril and aldactone, c/w lasix 40 mg iv bid, if worsening consider nephro consult in AM. KCL repleted today. labs in AM. Atrial fibrillation: Rate controlled. continue with heparin bridge, start home Coumadin 07/19 as no plan for procedure (pt doesn't want amputation). Continue with home metoprolol dose. pt/inr in AM. DC heparin drip when pt/inr 2 or above. Acute on chronic heart failure with reduced ejection fraction: Recent echo with EF of 30 to 35%, BLE swelling noted, CXR with pulmonary edema at presentation. Likely secondary to medication noncompliance. Diuretics as above, continue with fluid restriction. Monitor I's and O's, monitor and replete electrolytes. Adult failure to thrive: Medication noncompliance Inability to take care of the self Patient has had numerous hospitalizations in regards to failure to thrive at home Dietary consult, case management consult. PT/OT. Other chronic medical conditions: Continue with/resume home meds as and when able. T2DM: Sliding scale insulin. PVD: Status post left BKA amputation. Continue with home aspirin and Lipitor. Morbid obesity: Likely contributed to PVD and recurrent cellulitis. Counseling done. CKD: CKD stage III, stable. NINA on CPAP: Continue CPAP at bedtime. Cardiac defibrillator in situ: Noted Major depression disorder: Continue with duloxetine Lymphedema: Likely contributing to cellulitis. Follow-up with lymphedema clinic as an outpatient. Chronic pain syndrome: c/w oxy and lyrica DVT px: Hep drip Dispo, will need placement, pt/ot, cm Admission and Anticipated Discharge Date Admission Date: July 15, 2024 Subjective Patient was seen and examined at bedside. Patient was lying in bed, on room air, NAD, resting comfortably. Patient reports leg pain pain, reports feeling weak. Pt reports no loose stool. Has been afebrile. Physical Exam Physical Exam: GENERAL: Apathetic, morbidly obese, no respiratory distress SKIN: Pallor, warm HEENT: [place] palpebral conjunctivae, no ptosis, moist buccal mucosa NECK : Supple, short neck, no tenderness CHEST : Decreased breath sounds, no tenderness HEART : Irregular, diminished S1-S2 ABDOMEN: distention, no tenderness EXTREMITIES : Tender erythematous and edematous RLE with dressing over wound, left amputation stump induration and edema with tenderness with dressing NEUROLOGIC : Coherent, no facial asymmetry, no other gross focality Results & Data Results & Data Vital Signs (Past 12 Hours) Vital Signs Temp Pulse Resp BP Pulse Ox O2 Del Method 07/19/24 15:30 36.6 C 66 18 111/74 98 Room Air 07/19/24 11:42 Room Air 07/19/24 07:03 36.7 C 71 18 129/73 97 Room Air
[2024-07-19] MEDS: FUROSEMIDE 40 MG/4 ML VIAL IV SCH (17:31)
[2024-07-20 06:26] LABS: Hematocrit (blood only) 35.9 % (42.0-52.0); Hemoglobin 11.6 g/dl (14.0-18.0); Mean Corpuscular Hgb Conc 32.3 g/dL (32.0-36.0); Mean Corpuscular Volume 83.7 fL (80.0-100.0); Mean Platelet Volume 9.5 fL (9.4-12.4); Platelet Count 294 K/uL (130-400); RDW Coefficient of Variation 16.8 % (11.5-14.5); RDW Standard Deviation 51.3 fL (36.4-46.3); Red Blood Count 4.29 M/uL (4.70-6.10); White Blood Count 5.14 K/ul (4.8-10.8)
[2024-07-20 06:47] LABS: Calcium 8.6 mg/dl (8.6-10.3); Creatinine Clr Calc Pharmacy 78.6 ml/min
[2024-07-20 07:30] LABS: INR 1.5 (0.9-1.1); Prothrombin Time 15.8 Seconds (9.0-12.0)
[2024-07-20 07:54] LABS: ANTI-Xa, UFH(UnfractionatedHep 0.34 IU/ml (0.3-0.7)
--- NOTE | 2024-07-20 16:20 | Hospitalist Progress Note ---
Date of Service July 20, 2024 Assessment & Plan (1) Cellulitis of right leg: Plan 58-year-old man with PMH of HFrEF [EF 30 to 35%, TTE 2024] sp ICD, CAD, VT sp ablation, A-fib/DVT on Coumadin, HTN, HLD, pHTN,/OHS on BPAP, bronchial asthma, T2DM on insulin pump, hypothyroidism, CKD [baseline creatinine of 1.2-1.3], chronic anemia [baseline hemoglobin of 10], mood disorder, RLE osteomyelitis sp surgery, left foot osteomyelitis sp left BKA, morbid obesity who was recently admitted 05/24/2024 to 07/01/2024 for decompensated heart failure/LLE cellulitis and infected chronic right foot ulcer. Wound cultures were negative and patient completed cefepime and meropenem course. There was unsuccessful efforts for rehab/permanent placement at the time and patient was discharged home. Patient was admitted at [facility] July 02 to day after [facility] discharge as patient was found by home health nurse living in deplorable condition. Patient was discharged from the hospital despite protective services social worker notifying hospital providers that patient was not safe going home. Per patient's home health nursing reports, patient has trouble getting food/patient confused about medication/patient worried about bilateral painful leg swelling with intermittent bloody drainage/patient fell off of his chair and had to call [employer] twice to get him up/patient incapable of transfers and is with bowel incontinence. 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 Patient denied fever/chills/chest pain/cough/Headache. He is being managed for the following: BLE cellulitis Underlying RLE osteomyelitis Medical noncompliance No sepsis at presentation. Patient with recurrent lower extremity cellulitis likely secondary to noncompliance with medications/diet and patient's functional disability. Admitting imagings: CXR with mild pulmonary edema. C-spine CT and head CT with no acute finding. XR Left lower extremity with no acute bony abnormality, left below-knee amputation noted. Right foot x-ray and right foot CT - suggestive of extensive osteomyelitis. No pathologic fracture noted. CT right lower extremity - suggestive of cellulitis. CT Left knee and BKA stump - suggestive of cellulitis. Doxycycline 07/16 and cefepime 07/16 ---> ID evaluated 07/18, recs are iv cefepime 2g q8h, linezolid 600 mg q12h EOT 07/30/2024, recommends amputation of RLE. Linezolid and duloxetine has severe interaction of serotonin syndrome, d/w ID 07/18, plan to decrease dose of duloxetine to half and c/w linezolid Podiatry evaled, recs are RLE amputation vs palliative care. I d/w patient in detail specialist's recs on 07/18 and 07/19, he declines both amputation and palliative care involvement. WOCN consult Follow admitting blood culture. Remains weak but otherwise stable Blood cultures have been negative Appreciate wound care input and recommendation Will continue antibiotic as planned Acute kidney injury: Volume overload status, hold lisinopril and aldactone, c/w lasix 40 mg iv bid, if worsening consider nephro consult in AM. KCL repleted today. labs in AM. Creatinine is minimally improved at 1.53 Advised to drink more fluid and will monitor PRP Atrial fibrillation: Rate controlled. continue with heparin bridge, start home Coumadin 07/19 as no plan for procedure (pt doesn't want amputation). Continue with home metoprolol dose. pt/inr in AM. DC heparin drip when pt/inr 2 or above. Heart rate is controlled and will continue with current medication Acute on chronic heart failure with reduced ejection fraction: Recent echo with EF of 30 to 35%, BLE swelling noted, CXR with pulmonary edema at presentation. Likely secondary to medication noncompliance. Diuretics as above, continue with fluid restriction. Monitor I's and O's, monitor and replete electrolytes. Adult failure to thrive: Medication noncompliance Inability to take care of the self Patient has had numerous hospitalizations in regards to failure to thrive at home Dietary consult, case management consult. PT/OT. Other chronic medical conditions: Continue with/resume home meds as and when able. T2DM: Sliding scale insulin. PVD: Status post left BKA amputation. Continue with home aspirin and Lipitor. Morbid obesity: Likely contributed to PVD and recurrent cellulitis. Counseling done. CKD: CKD stage III, stable. NINA on CPAP: Continue CPAP at bedtime. Cardiac defibrillator in situ: Noted Major depression disorder: Continue with duloxetine Lymphedema: Likely contributing to cellulitis. Follow-up with lymphedema clinic as an outpatient. Chronic pain syndrome: c/w oxy and lyrica DVT px: Hep drip INR remains subtherapeutic and will continue Coumadin and give increasing dose today Dispo, will need placement, pt/ot, cm Admission and Anticipated Discharge Date Admission Date: July 15, 2024 Subjective 07/20/2024 The patient was seen and examined in medical floor He has been complaining of weakness but denies any fever and no chills He definitely wants his diet to be changed to regular Review of Systems Review of Systems: All systems reviewed and are unremarkable except as noted below Physical Exam Physical Exam: Lying in bed without any acute distress Constitutional: well developed, well nourished, + ill appearing and + morbidly obese Eyes: PERRL, conjunctivae normal, anicteric sclerae ENMT: external ear and nose normal, oropharynx normal Neck: trachea midline, no thyromegaly Respiratory: no respiratory distress Auscultation: lungs clear to auscultation bilaterally Cardiovascular: Rate/Rhythm: regular rate and regular rhythm; not tachycardic Extremities: + edema ( bilateral leg edema with lymphedema and cellulitis involving right leg) Has left BKA and lymphedema. Gastrointestinal (Abdomen): Inspection/Auscultation: normal bowel sounds; abdomen not distended Percussion/Palpation: abdomen soft; abdomen nontender Musculoskeletal: No acute arthritis involving any of the joint Neurologic: normal touch/pain/proprioception and moves all extremities; no focal motor deficits Lymphatic: no cervical or axillary lymphadenopathy Results & Data Results & Data Vital Signs (Past 12 Hours) Vital Signs Temp Pulse Pulse Resp BP BP Pulse Ox 07/20/24 15:34 36.8 C 64 18 99/66 L 97 07/20/24 11:55 36.6 C 70 16 122/73 96 07/20/24 09:14 78 114/75 07/20/24 08:04 36.8 C 78 17 119/73 95 07/20/24 07:51 O2 Del Method 07/20/24 15:34 Room Air 07/20/24 11:55 Room Air 07/20/24 09:14 07/20/24 08:04 Room Air 07/20/24 07:51 Room Air Laboratory Results Short CBC 07/20/24 Range/Units 06:03 WBC 5.14 (4.8-10.8) K/ul Hgb 11.6 L (14.0-18.0) g/dl Hct 35.9 L (42.0-52.0) % Plt Count 294 (130-400) K/uL [facility] 07/20/24 06:03 Sodium 135 L Potassium 4.0 Chloride 101 Carbon Dioxide 29 BUN 29 H Creatinine 1.53 H Glucose 192 H Calcium 8.6 Medications Administered Current Inpatient Medications Acetaminophen (Acetaminophen 500 Mg Tab) 500 mg PO Q6H PRN PRN Reason: fever/pain Stop: 08/14/24 21:36 Last Admin: 07/16/24 06:31 Dose: 500 mg Aspirin (Aspirin 81 Mg Ectab) 81 mg PO DAILY MATT Stop: 08/15/24 08:59 Last Admin: 07/20/24 09:17 Dose: 81 mg Atorvastatin Calcium (Atorvastatin 40 Mg Tab) 80 mg PO DAILY MATT Stop: 08/15/24 08:59 Last Admin: 07/20/24 09:17 Dose: 80 mg Dextrose (Dextrose 50% 50 Ml Syringe) 25 - 50 ml IV UD PRN; Protocol PRN Reason: Hypoglycemia Protocol Stop: 08/14/24 23:39 Duloxetine HCl (Duloxetine Hcl 30 Mg Cap) 30 mg PO QAM MATT Stop: 08/18/24 08:59 Last Admin: 07/20/24 09:18 Dose: 30 mg Ergocalciferol (Ergocalciferol 1250 Mcg (50,000 Units) Cap) 1,250 mcg PO Tu@0900 MATT Stop: 08/18/24 08:59 Last Admin: 07/19/24 08:27 Dose: 1,250 mcg Ferrous Sulfate (Ferrous Sulfate 325 Mg Tab) 325 mg PO BID MATT Stop: 08/15/24 08:59 Last Admin: 07/20/24 09:18 Dose: 325 mg Furosemide (Furosemide 40 Mg/4 Ml Vial) 40 mg IV [id number] MATT Stop: 08/18/24 16:59 Last Admin: 07/20/24 09:41 Dose: 40 mg Glucagon (Glucagon For Inj 1 Mg Vial) 1 mg SQ UD PRN; Protocol PRN Reason: Hypoglycemia Protocol Stop: 08/14/24 23:39 Glucose (Glucose 40% Gel 15 Gm Tube) 15 - 30 gm PO UD PRN; Protocol PRN Reason: Hypoglycemia Protocol Stop: 08/14/24 23:39 Glucose (Glucose 10 Tab/Tube) 4 - 8 tab PO UD PRN; Protocol PRN Reason: Hypoglycemia Protocol Stop: 08/14/24 23:39 Promethazine HCl (Phenergan) 12.5 mg in 50.5 mls @ 202 mls/hr IV Q6H PRN PRN Reason: Nausea And Vomiting Stop: 08/14/24 21:36 Last Infusion: 07/20/24 08:48 Dose: Infused Heparin Sodium/Dextrose (Heparin 26141 Unit/500 Ml D5w) 25,000 units in 500 mls @ 40 mls/hr IV .[id number] [facility]; Protocol Stop: 08/15/24 01:44 Last Admin: 07/20/24 15:24 Dose: 2,000 units/hr, 40 mls/hr Cefepime HCl (Maxipime 2000mg) 2,000 mg in 20 mls @ 5 mls/min IV Q8H [facility]; Protocol Stop: 07/30/24 23:59 Last Admin: 07/20/24 14:46 Dose: 5 mls/min Insulin Aspart (Insulin Aspart Per Unit Charge) 0 units SC ACHS [facility] Stop: 08/14/24 23:39 Last Admin: 07/20/24 13:29 Dose: 4 units Insulin Glargine (Lantus Per Unit Charge) 5 units SQ BID [facility] Stop: 08/14/24 21:59 Last Admin: 07/20/24 09:02 Dose: 5 units Lactic Acid (Ammonium Lactate 12% Lotion 225 Gm Btl) 1 gm EXT DAILY [facility] Stop: 08/15/24 08:59 Last Admin: 07/20/24 09:15 Dose: 1 gm Lactobacillus Acidophilus (Advanced Probiotic 625 Mg Capsule) 1,250 mg PO DAILY [facility] Stop: 08/15/24 14:14 Last Admin: 07/20/24 09:18 Dose: 1,250 mg Levothyroxine Sodium (Levothyroxine Sodium 88 Mcg Tablet) [facility] Stop: 08/15/24 06:29 Last Admin: 07/20/24 05:37 Dose: 88 mcg Linezolid (Linezolid 600 Mg Tab) 600 mg PO BID [facility] Stop: 08/29/24 20:59 Last Admin: 07/20/24 09:18 Dose: 600 mg Lisinopril (Lisinopril 5 Mg Tab) 5 mg PO DAILY MATT Stop: 08/15/24 08:59 Last Admin: 07/19/24 08:28 Dose: 5 mg Loratadine (Loratadine 10 Mg Tab) 10 mg PO DAILY MATT Stop: 08/15/24 08:59 Last Admin: 07/20/24 09:19 Dose: 10 mg Metoprolol Succinate (Metoprolol Succ 50mg Ext Rel Tab) 150 mg PO QAM MATT Stop: 08/15/24 08:59 Last Admin: 07/20/24 09:19 Dose: 150 mg Miscellaneous (Carbohydrates For Hypoglycemia ) 15 - 30 gm PO UD PRN PRN Reason: Hypoglycemia Protocol Stop: 08/14/24 23:39 Multivitamins/Minerals (Cerovite Adv Formula Tab) 1 tab PO DAILY MATT Stop: 08/15/24 08:59 Last Admin: 07/20/24 09:19 Dose: 1 tab Oxycodone HCl (Oxycodone Hcl Ir 5 Mg Tab (Immediate Release)) 5 - 10 mg PO QID PRN PRN Reason: Pain Stop: 07/29/24 21:36 Last Admin: 07/20/24 09:21 Dose: 10 mg Pantoprazole Sodium (Pantoprazole 40 Mg Tab) 40 mg PO BID MATT Stop: 08/15/24 08:59 Last Admin: 07/20/24 09:20 Dose: 40 mg Potassium Chloride (Potassium Chloride Crtab 20 Meq Tabcr) 20 meq PO BID MATT Stop: 08/15/24 20:59 Last Admin: 07/20/24 09:20 Dose: 20 meq Pregabalin (Pregabalin 75 Mg Cap) 75 mg PO TID MATT Stop: 08/15/24 08:59 Last Admin: 07/20/24 13:42 Dose: 75 mg Spironolactone (Spironolactone 25 Mg Tab) 25 mg PO DAILY MATT Stop: 08/16/24 08:59 Last Admin: 07/19/24 08:27 Dose: 25 mg Torsemide (Torsemide 20 Mg Tab) 40 mg PO QAM MATT Stop: 08/15/24 08:59 Last Admin: 07/19/24 08:27 Dose: 40 mg Torsemide (Torsemide 20 Mg Tab) 20 mg PO DAILY@1700 MATT Stop: 08/15/24 16:59 Last Admin: 07/18/24 17:38 Dose: 20 mg Warfarin Sodium (Warfarin Sod 2 Mg Tab) 2 mg PO DAILY@1600 MATT Stop: 08/17/24 15:59 Last Admin: 07/19/24 17:31 Dose: 2 mg
[2024-07-20] MEDS: WARFARIN SOD 3 MG TAB PO ONE (17:12)
[2024-07-20] MEDS: POLYETHYLENE (MIRALAX) 17 GM PACK PO SCH (17:28)
[2024-07-20 22:50] LABS: Base Excess VBG 7.3 mEq/L; HCO3 VBG 34 mmol/L; Oxygen Saturation VBG < 60.0 %; PCO2 VBG 53 mmHg (38-50); PO2 VBG 29 mmHg; pH VBG 7.41 (7.36-7.41)
[2024-07-21 06:41] LABS: BUN Creatinine Ratio 18.4 (10-20); Calcium 8.8 mg/dl (8.6-10.3); Creatinine Clr Calc Pharmacy 76.1 ml/min; Potassium 3.9 mmol/L (3.5-5.1)
[2024-07-21 06:55] LABS: ANTI-Xa, UFH(UnfractionatedHep 0.41 IU/ml (0.3-0.7); INR 1.7 (0.9-1.1)
[2024-07-21] MEDS: ONDANSETRON INJ 2 MG/ML 2 ML VIAL IV PRN (14:42)
--- NOTE | 2024-07-21 15:04 | Hospitalist Progress Note ---
Date of Service July 21, 2024 Assessment & Plan (1) Cellulitis of right leg: Plan 58-year-old man with PMH of HFrEF [EF 30 to 35%, TTE 2024] sp ICD, CAD, VT sp ablation, A-fib/DVT on Coumadin, HTN, HLD, pHTN,/OHS on BPAP, bronchial asthma, T2DM on insulin pump, hypothyroidism, CKD [baseline creatinine of 1.2-1.3], chronic anemia [baseline hemoglobin of 10], mood disorder, RLE osteomyelitis sp surgery, left foot osteomyelitis sp left BKA, morbid obesity who was recently admitted 05/24/2024 to 07/01/2024 for decompensated heart failure/LLE cellulitis and infected chronic right foot ulcer. Wound cultures were negative and patient completed cefepime and meropenem course. There was unsuccessful efforts for rehab/permanent placement at the time and patient was discharged home. Patient was admitted at [facility] July 02 to day after [facility] discharge as patient was found by home health nurse living in deplorable condition. Patient was discharged from the hospital despite social worker palliative care notifying hospital providers that patient was not safe going home. Per patient's home health nursing reports, patient has trouble getting food/patient confused about medication/patient worried about bilateral painful leg swelling with intermittent bloody drainage/patient fell off of his chair and had to call [employer] twice to get him up/patient incapable of transfers and is with bowel incontinence. Patient reports having sore throat/myalgia/nausea/loose stools for last 2 to 3 days [employer]. 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 Patient denied fever/chills/chest pain/cough/Headache. He is being managed for the following: BLE cellulitis Underlying RLE osteomyelitis Medical noncompliance No sepsis at presentation. Patient with recurrent lower extremity cellulitis likely secondary to noncompliance with medications/diet and patient's functional disability. Admitting imagings: CXR with mild pulmonary edema. C-spine CT and head CT with no acute finding. XR Left lower extremity with no acute bony abnormality, left below-knee amputation noted. Right foot x-ray and right foot CT - suggestive of extensive osteomyelitis. No pathologic fracture noted. CT right lower extremity - suggestive of cellulitis. CT Left knee and BKA stump - suggestive of cellulitis. Doxycycline 07/16 and cefepime 07/16 ---> ID evaluated 07/18, recs are iv cefepime 2g q8h, linezolid 600 mg q12h EOT 07/30/2024, recommends amputation of RLE. Linezolid and duloxetine has severe interaction of serotonin syndrome, d/w ID 07/18, plan to decrease dose of duloxetine to half and c/w linezolid Podiatry evaled, recs are RLE amputation vs palliative care. I d/w patient in detail specialist's recs on 07/18 and 07/19, he declines both amputation and palliative care involvement. WOCN consult Follow admitting blood culture. Remains weak but otherwise stable Blood cultures have been negative Appreciate wound care input and recommendation Will continue antibiotic as planned Remains stable and awaiting placement and finishing antibiotic Acute kidney injury: Volume overload status, hold lisinopril and aldactone, c/w lasix 40 mg iv bid, if worsening consider nephro consult in AM. KCL repleted today. labs in AM. Creatinine is minimally improved at 1.53 Advised to drink more fluid and will monitor PRP Kidney function remains stable with creatinine at 1.58he was strongly advised to drink more fluid Atrial fibrillation: Rate controlled. continue with heparin bridge, start home Coumadin 07/19 as no plan for procedure (pt doesn't want amputation). Continue with home metoprolol dose. pt/inr in AM. DC heparin drip when pt/inr 2 or above. Heart rate is controlled and will continue with current medication Acute on chronic heart failure with reduced ejection fraction: Recent echo with EF of 30 to 35%, BLE swelling noted, CXR with pulmonary edema at presentation. Likely secondary to medication noncompliance. Diuretics as above, continue with fluid restriction. Monitor I's and O's, monitor and replete electrolytes. Adult failure to thrive: Medication noncompliance Inability to take care of the self Patient has had numerous hospitalizations in regards to failure to thrive at home Dietary consult, case management consult. PT/OT. Other chronic medical conditions: Continue with/resume home meds as and when able. T2DM: Sliding scale insulin. PVD: Status post left BKA amputation. Continue with home aspirin and Lipitor. Morbid obesity: Likely contributed to PVD and recurrent cellulitis. Counseling done. CKD: CKD stage III, stable. NINA on CPAP: Continue CPAP at bedtime. Cardiac defibrillator in situ: Noted Major depression disorder: Continue with duloxetine Lymphedema: Likely contributing to cellulitis. Follow-up with lymphedema clinic as an outpatient. Chronic pain syndrome: c/w oxy and lyrica DVT px: Hep drip INR remains subtherapeutic and will continue Coumadin and give increasing dose today INR is still low at 1.7 and will continue current dose of Coumadin Dispo, will need placement, pt/ot, cm Admission and Anticipated Discharge Date Admission Date: July 15, 2024 Subjective 07/20/2024 The patient was seen and examined in medical floor He has been complaining of weakness but denies any fever and no chills He definitely wants his diet to be changed to regular 07/21/2024 The patient was seen and examined in medical floor He remains otherwise stable Still complains to have generalized weakness and lethargy No fever and/or chills Review of Systems Review of Systems: All systems reviewed and are unremarkable except as noted below Physical Exam Physical Exam: Lying in bed without any acute distress Constitutional: well developed, well nourished, + ill appearing and + morbidly obese Eyes: PERRL, conjunctivae normal, anicteric sclerae ENMT: external ear and nose normal, oropharynx normal Neck: trachea midline, no thyromegaly Respiratory: no respiratory distress Auscultation: lungs clear to auscultation bilaterally Cardiovascular: Rate/Rhythm: regular rate and regular rhythm; not tachycardic Extremities: + edema ( bilateral leg edema with lymphedema and cellulitis involving right leg) Gastrointestinal (Abdomen): Inspection/Auscultation: normal bowel sounds; abdomen not distended Percussion/Palpation: abdomen soft; abdomen nontender Neurologic: normal touch/pain/proprioception and moves all extremities; no focal motor deficits Lymphatic: no cervical or axillary lymphadenopathy Results & Data Results & Data Vital Signs (Past 12 Hours) Vital Signs Temp Pulse Resp BP BP Pulse Ox O2 Del Method 07/21/24 14:31 36.6 C 74 18 110/72 96 Room Air 07/21/24 07:57 36.5 C 68 16 119/58 L 97 Room Air 07/21/24 07:51 Room Air Laboratory Results [facility] 07/21/24 05:59 Sodium 135 L Potassium 3.9 Chloride 100 Carbon Dioxide 30 BUN 29 H Creatinine 1.58 H Glucose 195 H Calcium 8.8 Medications Administered Current Inpatient Medications Acetaminophen (Acetaminophen 500 Mg Tab) 500 mg PO Q6H PRN PRN Reason: fever/pain Stop: 08/14/24 21:36 Last Admin: 07/16/24 06:31 Dose: 500 mg Aspirin (Aspirin 81 Mg Ectab) 81 mg PO DAILY MATT Stop: 08/15/24 08:59 Last Admin: 07/21/24 08:27 Dose: 81 mg Atorvastatin Calcium (Atorvastatin 40 Mg Tab) 80 mg PO DAILY MATT Stop: 08/15/24 08:59 Last Admin: 07/21/24 08:25 Dose: 80 mg Dextrose (Dextrose 50% 50 Ml Syringe) 25 - 50 ml IV UD PRN; Protocol PRN Reason: Hypoglycemia Protocol Stop: 08/14/24 23:39 Duloxetine HCl (Duloxetine Hcl 30 Mg Cap) 30 mg PO QAM MATT Stop: 08/18/24 08:59 Last Admin: 07/20/24 09:18 Dose: 30 mg Ergocalciferol (Ergocalciferol 1250 Mcg (50,000 Units) Cap) 1,250 mcg PO Tu@0900 MATT Stop: 08/18/24 08:59 Last Admin: 07/19/24 08:27 Dose: 1,250 mcg Ferrous Sulfate (Ferrous Sulfate 325 Mg Tab) 325 mg PO BID MATT Stop: 08/15/24 08:59 Last Admin: 07/21/24 08:28 Dose: 325 mg Furosemide (Furosemide 40 Mg/4 Ml Vial) 40 mg IV [id number] [facility] Stop: 08/18/24 16:59 Last Admin: 07/21/24 08:57 Dose: 40 mg Glucagon (Glucagon For Inj 1 Mg Vial) 1 mg SQ UD PRN; Protocol PRN Reason: Hypoglycemia Protocol Stop: 08/14/24 23:39 Glucose (Glucose 40% Gel 15 Gm Tube) 15 - 30 gm PO UD PRN; Protocol PRN Reason: Hypoglycemia Protocol Stop: 08/14/24 23:39 Glucose (Glucose 10 Tab/Tube) 4 - 8 tab PO UD PRN; Protocol PRN Reason: Hypoglycemia Protocol Stop: 08/14/24 23:39 Promethazine HCl (Phenergan) 12.5 mg in 50.5 mls @ 202 mls/hr IV Q6H PRN PRN Reason: Nausea And Vomiting Stop: 08/14/24 21:36 Last Infusion: 07/21/24 08:37 Dose: Infused Heparin Sodium/Dextrose (Heparin 81539 Unit/500 Ml D5w) 25,000 units in 500 mls @ 40 mls/hr IV .[id number] [facility]; Protocol Stop: 08/15/24 01:44 Last Admin: 07/21/24 04:05 Dose: Not Given Cefepime HCl (Maxipime 2000mg) 2,000 mg in 20 mls @ 5 mls/min IV Q8H [facility]; Protocol Stop: 07/30/24 23:59 Last Admin: 07/21/24 14:17 Dose: 5 mls/min Insulin Aspart (Insulin Aspart Per Unit Charge) 0 units SC ACHS [facility] Stop: 08/14/24 23:39 Last Admin: 07/21/24 13:04 Dose: 5 units Insulin Glargine (Lantus Per Unit Charge) 5 units SQ BID [facility] Stop: 08/14/24 21:59 Last Admin: 07/21/24 09:03 Dose: 5 units Lactic Acid (Ammonium Lactate 12% Lotion 225 Gm Btl) 1 gm EXT DAILY [facility] Stop: 08/15/24 08:59 Last Admin: 07/21/24 08:26 Dose: 1 gm Lactobacillus Acidophilus (Advanced Probiotic 625 Mg Capsule) 1,250 mg PO DAILY [facility] Stop: 08/15/24 14:14 Last Admin: 07/21/24 08:26 Dose: 1,250 mg Levothyroxine Sodium (Levothyroxine Sodium 88 Mcg Tablet) 88 mcg PO DAILYBB [facility] Stop: 08/15/24 06:29 Last Admin: 07/21/24 05:22 Dose: 88 mcg Linezolid (Linezolid 600 Mg Tab) 600 mg PO BID [facility] Stop: 08/29/24 20:59 Last Admin: 07/21/24 08:28 Dose: 600 mg Lisinopril (Lisinopril 5 Mg Tab) 5 mg PO DAILY [facility] Stop: 08/15/24 08:59 Last Admin: 07/19/24 08:28 Dose: 5 mg Loratadine (Loratadine 10 Mg Tab) 10 mg PO DAILY [facility] Stop: 08/15/24 08:59 Last Admin: 07/21/24 08:26 Dose: 10 mg Metoprolol Succinate (Metoprolol Succ 50mg Ext Rel Tab) 150 mg PO QAM [facility] Stop: 08/15/24 08:59 Last Admin: 07/21/24 08:27 Dose: 150 mg Miscellaneous (Carbohydrates For Hypoglycemia ) 15 - 30 gm PO UD PRN PRN Reason: Hypoglycemia Protocol Stop: 08/14/24 23:39 Multivitamins/Minerals (Cerovite Adv Formula Tab) 1 tab PO DAILY [facility] Stop: 08/15/24 08:59 Last Admin: 07/21/24 08:27 Dose: 1 tab Ondansetron HCl (Ondansetron Inj 2 Mg/Ml 2 Ml Vial) 4 mg IV Q6H PRN PRN Reason: Nausea And Vomiting Stop: 08/20/24 14:32 Last Admin: 07/21/24 14:42 Dose: 4 mg Oxycodone HCl (Oxycodone Hcl Ir 5 Mg Tab (Immediate Release)) 5 - 10 mg PO QID PRN PRN Reason: Pain Stop: 07/29/24 21:36 Last Admin: 07/20/24 21:13 Dose: 10 mg Pantoprazole Sodium (Pantoprazole 40 Mg Tab) 40 mg PO BID [facility] Stop: 08/15/24 08:59 Last Admin: 07/21/24 08:28 Dose: 40 mg Polyethylene Glycol (Polyethylene (Miralax) 17 Gm Pack) 17 gm PO DAILY [facility] Stop: 08/19/24 16:44 Last Admin: 07/21/24 08:30 Dose: Not Given Potassium Chloride (Potassium Chloride Crtab 20 Meq Tabcr) 20 meq PO BID [facility] Stop: 08/15/24 20:59 Last Admin: 07/21/24 08:30 Dose: 20 meq Pregabalin (Pregabalin 75 Mg Cap) 75 mg PO TID [facility] Stop: 08/15/24 08:59 Last Admin: 07/21/24 14:14 Dose: 75 mg Spironolactone (Spironolactone 25 Mg Tab) 25 mg PO DAILY [facility] Stop: 08/16/24 08:59 Last Admin: 07/19/24 08:27 Dose: 25 mg Torsemide (Torsemide 20 Mg Tab) 40 mg PO QAM [facility] Stop: 08/15/24 08:59 Last Admin: 07/19/24 08:27 Dose: 40 mg Torsemide (Torsemide 20 Mg Tab) 20 mg PO DAILY@1700 [facility] Stop: 08/15/24 16:59 Last Admin: 07/18/24 17:38 Dose: 20 mg Warfarin Sodium (Warfarin Sod 2 Mg Tab) 2 mg PO DAILY@1600 [facility] Stop: 08/17/24 15:59 Last Admin: 07/20/24 17:13 Dose: 2 mg
[2024-07-22 06:35] LABS: INR 2.5 (0.9-1.1); Prothrombin Time 25.1 Seconds (9.0-12.0)
[2024-07-22 08:04] LABS: ANTI-Xa, UFH(UnfractionatedHep 0.37 IU/ml (0.3-0.7)
--- NOTE | 2024-07-22 17:04 | Hospitalist Progress Note ---
Date of Service July 22, 2024 Assessment & Plan (1) Cellulitis of right leg: Plan 58-year-old man with PMH of HFrEF [EF 30 to 35%, TTE 2024] sp ICD, CAD, VT sp ablation, A-fib/DVT on Coumadin, HTN, HLD, pHTN,/OHS on BPAP, bronchial asthma, T2DM on insulin pump, hypothyroidism, CKD [baseline creatinine of 1.2-1.3], chronic anemia [baseline hemoglobin of 10], mood disorder, RLE osteomyelitis sp surgery, left foot osteomyelitis sp left BKA, morbid obesity who was recently admitted 05/24/2024 to 07/01/2024 for decompensated heart failure/LLE cellulitis and infected chronic right foot ulcer. Wound cultures were negative and patient completed cefepime and meropenem course. There was unsuccessful efforts for rehab/permanent placement at the time and patient was discharged home. Patient was admitted at [facility] July 02 to day after [facility] discharge as patient was found by home health nurse living in deplorable condition. Patient was discharged from the hospital despite social science instructor notifying hospital providers that patient was not safe going home. Per patient's home health nursing reports, patient has trouble getting food/patient confused about medication/patient worried about bilateral painful leg swelling with intermittent bloody drainage/patient fell off of his chair and had to call [employer] twice to get him up/patient incapable of transfers and is with bowel incontinence. Patient reports having sore throat/myalgia/nausea/loose stools for last 2 to 3 days [employer]. 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 Patient denied fever/chills/chest pain/cough/Headache. He is being managed for the following: BLE cellulitis Underlying RLE osteomyelitis Medical noncompliance No sepsis at presentation. Patient with recurrent lower extremity cellulitis likely secondary to noncompliance with medications/diet and patient's functional disability. Admitting imagings: CXR with mild pulmonary edema. C-spine CT and head CT with no acute finding. XR Left lower extremity with no acute bony abnormality, left below-knee amputation noted. Right foot x-ray and right foot CT - suggestive of extensive osteomyelitis. No pathologic fracture noted. CT right lower extremity - suggestive of cellulitis. CT Left knee and BKA stump - suggestive of cellulitis. Doxycycline 07/16 and cefepime 07/16 ---> ID evaluated 07/18, recs are iv cefepime 2g q8h, linezolid 600 mg q12h EOT 07/30/2024, recommends amputation of RLE. Linezolid and duloxetine has severe interaction of serotonin syndrome, d/w ID 07/18, plan to decrease dose of duloxetine to half and c/w linezolid Podiatry evaled, recs are RLE amputation vs palliative care. I d/w patient in detail specialist's recs on 07/18 and 07/19, he declines both amputation and palliative care involvement. WOCN consult Follow admitting blood culture. Remains weak but otherwise stable Blood cultures have been negative Appreciate wound care input and recommendation Will continue antibiotic as planned Remains stable and awaiting placement and finishing antibiotic Remains weak and lethargic and also drowsy today Does not have any ongoing uncontrolled infection and denies any fever and/or chills and remains hemodynamically stable Poor motivation- will discuss with him about possible palliative care involvement Acute kidney injury: Volume overload status, hold lisinopril and aldactone, c/w lasix 40 mg iv bid, if worsening consider nephro consult in AM. KCL repleted today. labs in AM. Creatinine is minimally improved at 1.53 Advised to drink more fluid and will monitor PRP Kidney function remains stable with creatinine at 1.58he was strongly advised to drink more fluid Will check PRP tomorrow Atrial fibrillation: Rate controlled. continue with heparin bridge, start home Coumadin 07/19 as no plan for procedure (pt doesn't want amputation). Continue with home metoprolol dose. pt/inr in AM. DC heparin drip when pt/inr 2 or above. Heart rate is controlled and will continue with current medication Rate is controlled and does not have any cardiac symptoms Acute on chronic heart failure with reduced ejection fraction: Recent echo with EF of 30 to 35%, BLE swelling noted, CXR with pulmonary edema at presentation. Likely secondary to medication noncompliance. Diuretics as above, continue with fluid restriction. Monitor I's and O's, monitor and replete electrolytes. Adult failure to thrive: Medication noncompliance Inability to take care of the self Patient has had numerous hospitalizations in regards to failure to thrive at home Dietary consult, case management consult. PT/OT. Other chronic medical conditions: Continue with/resume home meds as and when able. T2DM: Sliding scale insulin. PVD: Status post left BKA amputation. Continue with home aspirin and Lipitor. Morbid obesity: Likely contributed to PVD and recurrent cellulitis. Counseling done. CKD: CKD stage III, stable. NINA on CPAP: Continue CPAP at bedtime. Cardiac defibrillator in situ: Noted Major depression disorder: Continue with duloxetine Lymphedema: Likely contributing to cellulitis. Follow-up with lymphedema clinic as an outpatient. Chronic pain syndrome: c/w oxy and lyrica DVT px: Hep drip INR remains subtherapeutic and will continue Coumadin and give increasing dose today INR is still low at 1.7 and will continue current dose of Coumadin Dispo, will need placement, pt/ot, cm Admission and Anticipated Discharge Date Admission Date: July 15, 2024 Subjective 07/20/2024 The patient was seen and examined in medical floor He has been complaining of weakness but denies any fever and no chills He definitely wants his diet to be changed to regular 07/21/2024 The patient was seen and examined in medical floor He remains otherwise stable Still complains to have generalized weakness and lethargy No fever and/or chills - 07/22/2024 The patient was seen and examined in medical floor He has been weak and lethargic and also drowsy today No fever and/or chills and remains hemodynamically stable Denies any significant symptoms Review of Systems Review of Systems: All systems reviewed and are unremarkable except as noted below Physical Exam Physical Exam: Lying in bed without any acute distress Constitutional: well developed, well nourished, + ill appearing and + morbidly obese Eyes: PERRL, conjunctivae normal, anicteric sclerae ENMT: external ear and nose normal, oropharynx normal Neck: trachea midline, no thyromegaly Respiratory: no respiratory distress Auscultation: lungs clear to auscultation bilaterally Cardiovascular: Rate/Rhythm: regular rate and regular rhythm; not tachycardic Extremities: + edema ( bilateral leg edema with lymphedema and cellulitis involving right leg) Gastrointestinal (Abdomen): Inspection/Auscultation: normal bowel sounds; abdomen not distended Percussion/Palpation: abdomen soft; abdomen nontender Neurologic: normal touch/pain/proprioception and moves all extremities; no focal motor deficits Lymphatic: no cervical or axillary lymphadenopathy Results & Data Results & Data Vital Signs (Past 12 Hours) Vital Signs Temp Pulse Resp BP BP Pulse Ox O2 Del Method 07/22/24 15:20 36.7 C 67 16 116/6 L 99 Room Air 07/22/24 11:40 36.7 C 67 16 125/74 98 Room Air 07/22/24 07:15 36.7 C 70 18 101/66 96 Room Air Medications Administered Current Inpatient Medications Acetaminophen (Acetaminophen 500 Mg Tab) 500 mg PO Q6H PRN PRN Reason: fever/pain Stop: 08/14/24 21:36 Last Admin: 07/16/24 06:31 Dose: 500 mg Aspirin (Aspirin 81 Mg Ectab) 81 mg PO DAILY [facility] Stop: 08/15/24 08:59 Last Admin: 07/22/24 09:38 Dose: 81 mg Atorvastatin Calcium (Atorvastatin 40 Mg Tab) 80 mg PO DAILY [facility] Stop: 08/15/24 08:59 Last Admin: 07/22/24 09:38 Dose: 80 mg Dextrose (Dextrose 50% 50 Ml Syringe) 25 - 50 ml IV UD PRN; Protocol PRN Reason: Hypoglycemia Protocol Stop: 08/14/24 23:39 Duloxetine HCl (Duloxetine Hcl 30 Mg Cap) 30 mg PO QAM [facility] Stop: 08/18/24 08:59 Last Admin: 07/20/24 09:18 Dose: 30 mg Ergocalciferol (Ergocalciferol 1250 Mcg (50,000 Units) Cap) 1,250 mcg PO Tu@0900 [facility] Stop: 08/18/24 08:59 Last Admin: 07/19/24 08:27 Dose: 1,250 mcg Ferrous Sulfate (Ferrous Sulfate 325 Mg Tab) 325 mg PO BID [facility] Stop: 08/15/24 08:59 Last Admin: 07/22/24 09:38 Dose: 325 mg Furosemide (Furosemide 40 Mg/4 Ml Vial) 40 mg IV [id number] [facility] Stop: 08/18/24 16:59 Last Admin: 07/22/24 16:45 Dose: 40 mg Glucagon (Glucagon For Inj 1 Mg Vial) 1 mg SQ UD PRN; Protocol PRN Reason: Hypoglycemia Protocol Stop: 08/14/24 23:39 Glucose (Glucose 40% Gel 15 Gm Tube) 15 - 30 gm PO UD PRN; Protocol PRN Reason: Hypoglycemia Protocol Stop: 08/14/24 23:39 Glucose (Glucose 10 Tab/Tube) 4 - 8 tab PO UD PRN; Protocol PRN Reason: Hypoglycemia Protocol Stop: 08/14/24 23:39 Promethazine HCl (Phenergan) 12.5 mg in 50.5 mls @ 202 mls/hr IV Q6H PRN PRN Reason: Nausea And Vomiting Stop: 08/14/24 21:36 Last Infusion: 07/22/24 13:13 Dose: Infused Cefepime HCl (Maxipime 2000mg) 2,000 mg in 20 mls @ 5 mls/min IV Q8H [facility]; Protocol Stop: 07/30/24 23:59 Last Admin: 07/22/24 14:40 Dose: 5 mls/min Insulin Aspart (Insulin Aspart Per Unit Charge) 0 units SC ACHS [facility] Stop: 08/14/24 23:39 Last Admin: 07/22/24 12:54 Dose: 13 units Insulin Glargine (Lantus Per Unit Charge) 5 units SQ BID [facility] Stop: 08/14/24 21:59 Last Admin: 07/22/24 09:44 Dose: 5 units Lactic Acid (Ammonium Lactate 12% Lotion 225 Gm Btl) 1 gm EXT DAILY [facility] Stop: 08/15/24 08:59 Last Admin: 07/22/24 09:39 Dose: 1 gm Lactobacillus Acidophilus (Advanced Probiotic 625 Mg Capsule) 1,250 mg PO DAILY [facility] Stop: 08/15/24 14:14 Last Admin: 07/22/24 09:37 Dose: 1,250 mg Levothyroxine Sodium (Levothyroxine Sodium 88 Mcg Tablet) 88 mcg PO DAILYBB [facility] Stop: 08/15/24 06:29 Last Admin: 07/22/24 05:12 Dose: 88 mcg Linezolid (Linezolid 600 Mg Tab) 600 mg PO BID [facility] Stop: 08/29/24 20:59 Last Admin: 07/22/24 09:38 Dose: 600 mg Lisinopril (Lisinopril 5 Mg Tab) 5 mg PO DAILY [facility] Stop: 08/15/24 08:59 Last Admin: 07/19/24 08:28 Dose: 5 mg Loratadine (Loratadine 10 Mg Tab) 10 mg PO DAILY [facility] Stop: 08/15/24 08:59 Last Admin: 07/22/24 09:37 Dose: 10 mg Metoprolol Succinate (Metoprolol Succ 50mg Ext Rel Tab) 150 mg PO QAM [facility] Stop: 08/15/24 08:59 Last Admin: 07/22/24 09:37 Dose: 150 mg Miscellaneous (Carbohydrates For Hypoglycemia ) 15 - 30 gm PO UD PRN PRN Reason: Hypoglycemia Protocol Stop: 08/14/24 23:39 Multivitamins/Minerals (Cerovite Adv Formula Tab) 1 tab PO DAILY [facility] Stop: 08/15/24 08:59 Last Admin: 07/22/24 09:37 Dose: 1 tab Ondansetron HCl (Ondansetron Inj 2 Mg/Ml 2 Ml Vial) 4 mg IV Q6H PRN PRN Reason: Nausea And Vomiting Stop: 08/20/24 14:32 Last Admin: 07/21/24 14:42 Dose: 4 mg Oxycodone HCl (Oxycodone Hcl Ir 5 Mg Tab (Immediate Release)) 5 - 10 mg PO QID PRN PRN Reason: Pain Stop: 07/29/24 21:36 Last Admin: 07/21/24 16:35 Dose: 10 mg Pantoprazole Sodium (Pantoprazole 40 Mg Tab) 40 mg PO BID [facility] Stop: 08/15/24 08:59 Last Admin: 07/22/24 09:38 Dose: 40 mg Polyethylene Glycol (Polyethylene (Miralax) 17 Gm Pack) 17 gm PO DAILY [facility] Stop: 08/19/24 16:44 Last Admin: 07/22/24 09:39 Dose: Not Given Potassium Chloride (Potassium Chloride Crtab 20 Meq Tabcr) 20 meq PO BID [facility] Stop: 08/15/24 20:59 Last Admin: 07/22/24 09:45 Dose: 20 meq Pregabalin (Pregabalin 75 Mg Cap) 75 mg PO TID [facility] Stop: 08/15/24 08:59 Last Admin: 07/22/24 14:33 Dose: Not Given Spironolactone (Spironolactone 25 Mg Tab) 25 mg PO DAILY [facility] Stop: 08/16/24 08:59 Last Admin: 07/19/24 08:27 Dose: 25 mg Torsemide (Torsemide 20 Mg Tab) 40 mg PO QAM [facility] Stop: 08/15/24 08:59 Last Admin: 07/19/24 08:27 Dose: 40 mg Torsemide (Torsemide 20 Mg Tab) 20 mg PO DAILY@1700 [facility] Stop: 08/15/24 16:59 Last Admin: 07/18/24 17:38 Dose: 20 mg Warfarin Sodium (Warfarin Sod 2 Mg Tab) 2 mg PO DAILY@1600 [facility] Stop: 08/17/24 15:59 Last Admin: 07/22/24 16:45 Dose: 2 mg
[2024-07-23 06:22] LABS: INR 2.6 (0.9-1.1); Prothrombin Time 26.1 Seconds (9.0-12.0)
[2024-07-23 08:22] LABS: Basophils # (auto) 0.08 K/uL (0.00-0.20); Basophils % (auto) 1.4 %; Eosinophils # (auto) 0.25 K/uL (0.00-0.50); Eosinophils % (auto) 4.5 %; Hematocrit (blood only) 37.9 % (42.0-52.0); Hemoglobin 12.1 g/dl (14.0-18.0); Immature Granulocytes % (auto) 1.8 %; Lymphocytes # (auto) 1.02 K/uL (1.20-3.40); Lymphocytes % (auto) 18.2 %; Mean Corpuscular Hgb Conc 31.9 g/dL (32.0-36.0); Mean Corpuscular Volume 84.6 fL (80.0-100.0); Mean Platelet Volume 9.8 fL (9.4-12.4); Monocytes # (auto) 0.59 K/uL (0.11-0.59); Monocytes % (auto) 10.5 %; Neutrophils # (auto) 3.57 K/uL (1.40-6.50); Neutrophils % (auto) 63.6 %; Platelet Count 294 K/uL (130-400); RDW Coefficient of Variation 16.9 % (11.5-14.5); RDW Standard Deviation 52.1 fL (36.4-46.3); Red Blood Count 4.48 M/uL (4.70-6.10); White Blood Count 5.61 K/ul (4.8-10.8)
[2024-07-23 08:28] LABS: BUN Creatinine Ratio 20.9 (10-20); Calcium 9.1 mg/dl (8.6-10.3); Creatinine Clr Calc Pharmacy 86.5 ml/min; Magnesium 1.6 mg/dl (1.7-2.4); Potassium 3.9 mmol/L (3.5-5.1)
--- NOTE | 2024-07-23 15:14 | Hospitalist Progress Note ---
Date of Service July 23, 2024 Assessment & Plan (1) Cellulitis of right leg: Plan 58-year-old man with PMH of HFrEF [EF 30 to 35%, TTE 2024] sp ICD, CAD, VT sp ablation, A-fib/DVT on Coumadin, HTN, HLD, pHTN,/OHS on BPAP, bronchial asthma, T2DM on insulin pump, hypothyroidism, CKD [baseline creatinine of 1.2-1.3], chronic anemia [baseline hemoglobin of 10], mood disorder, RLE osteomyelitis sp surgery, left foot osteomyelitis sp left BKA, morbid obesity who was recently admitted 05/24/2024 to 07/01/2024 for decompensated heart failure/LLE cellulitis and infected chronic right foot ulcer. Wound cultures were negative and patient completed cefepime and meropenem course. There was unsuccessful efforts for rehab/permanent placement at the time and patient was discharged home. Patient was admitted at [facility] July 02 to day after [facility] discharge as patient was found by home health nurse living in deplorable condition. Patient was discharged from the hospital despite social media campaign manager notifying hospital providers that patient was not safe going home. Per patient's home health nursing reports, patient has trouble getting food/patient confused about medication/patient worried about bilateral painful leg swelling with intermittent bloody drainage/patient fell off of his chair and had to call [employer] twice to get him up/patient incapable of transfers and is with bowel incontinence. Patient reports having sore throat/myalgia/nausea/loose stools for last 2 to 3 days [employer]. 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 Patient denied fever/chills/chest pain/cough/Headache. He is being managed for the following: BLE cellulitis Underlying RLE osteomyelitis Medical noncompliance No sepsis at presentation. Patient with recurrent lower extremity cellulitis likely secondary to noncompliance with medications/diet and patient's functional disability. Admitting imagings: CXR with mild pulmonary edema. C-spine CT and head CT with no acute finding. XR Left lower extremity with no acute bony abnormality, left below-knee amputation noted. Right foot x-ray and right foot CT - suggestive of extensive osteomyelitis. No pathologic fracture noted. CT right lower extremity - suggestive of cellulitis. CT Left knee and BKA stump - suggestive of cellulitis. Doxycycline 07/16 and cefepime 07/16 ---> ID evaluated 07/18, recs are iv cefepime 2g q8h, linezolid 600 mg q12h EOT 07/30/2024, recommends amputation of RLE. Linezolid and duloxetine has severe interaction of serotonin syndrome, d/w ID 07/18, plan to decrease dose of duloxetine to half and c/w linezolid Podiatry evaled, recs are RLE amputation vs palliative care. I d/w patient in detail specialist's recs on 07/18 and 07/19, he declines both amputation and palliative care involvement. WOCN consult Follow admitting blood culture. Remains weak but otherwise stable Blood cultures have been negative Appreciate wound care input and recommendation Will continue antibiotic as planned Remains stable and awaiting placement and finishing antibiotic Remains weak and lethargic and also drowsy today Does not have any ongoing uncontrolled infection and denies any fever and/or chills and remains hemodynamically stable Poor motivation- will discuss with him about possible palliative care involvement Much better today and complains some pain in the legs Will discuss about palliative care involvement on Thursday Acute kidney injury: Volume overload status, hold lisinopril and aldactone, c/w lasix 40 mg iv bid, if worsening consider nephro consult in AM. KCL repleted today. labs in AM. Creatinine is minimally improved at 1.53 Advised to drink more fluid and will monitor PRP Kidney function remains stable with creatinine at 1.58he was strongly advised to drink more fluid kidney function remains stable and he was advised to drink more fluid Atrial fibrillation: Rate controlled. continue with heparin bridge, start home Coumadin 07/19 as no plan for procedure (pt doesn't want amputation). Continue with home metoprolol dose. pt/inr in AM. DC heparin drip when pt/inr 2 or above. Heart rate is controlled and will continue with current medication Rate is controlled and does not have any cardiac symptoms INR is therapeutic at 2.6 and the rate is controlled Acute on chronic heart failure with reduced ejection fraction: Recent echo with EF of 30 to 35%, BLE swelling noted, CXR with pulmonary edema at presentation. Likely secondary to medication noncompliance. Diuretics as above, continue with fluid restriction. Monitor I's and O's, monitor and replete electrolytes. Adult failure to thrive: Medication noncompliance Inability to take care of the self Patient has had numerous hospitalizations in regards to failure to thrive at home Dietary consult, case management consult. PT/OT. Other chronic medical conditions: Continue with/resume home meds as and when able. T2DM: Sliding scale insulin. PVD: Status post left BKA amputation. Continue with home aspirin and Lipitor. Morbid obesity: Likely contributed to PVD and recurrent cellulitis. Counseli ng done. CKD: CKD stage III, stable. NINA on CPAP: Continue CPAP at bedtime. Cardiac defibrillator in situ: Noted Major depression disorder: Continue with duloxetine Lymphedema: Likely contributing to cellulitis. Follow-up with lymphedema clinic as an outpatient. Chronic pain syndrome: c/w oxy and lyrica DVT px: Hep drip INR remains subtherapeutic and will continue Coumadin and give increasing dose today INR is still low at 1.7 and will continue current dose of Coumadin Dispo, will need placement, pt/ot, cm Admission and Anticipated Discharge Date Admission Date: July 15, 2024 Subjective 07/20/2024 The patient was seen and examined in medical floor He has been complaining of weakness but denies any fever and no chills He definitely wants his diet to be changed to regular 07/21/2024 The patient was seen and examined in medical floor He remains otherwise stable Still complains to have generalized weakness and lethargy No fever and/or chills - 07/22/2024 The patient was seen and examined in medical floor He has been weak and lethargic and also drowsy today No fever and/or chills and remains hemodynamically stable Denies any significant symptoms 07/23/2024 The patient was seen and examined in medical floor He has been much better today and does not have any drowsiness compared to yesterday Complains of pain in the right leg but denies any other symptoms Review of Systems Review of Systems: All systems reviewed and are unremarkable except as noted below Physical Exam Physical Exam: Lying in bed without any acute distress Constitutional: well developed, well nourished, + ill appearing and + morbidly obese Eyes: PERRL, conjunctivae normal, anicteric sclerae ENMT: external ear and nose normal, oropharynx normal Neck: trachea midline, no thyromegaly Respiratory: no respiratory distress Auscultation: lungs clear to auscultation bilaterally Cardiovascular: Rate/Rhythm: regular rate and regular rhythm; not tachycardic Extremities: + edema ( bilateral leg edema with lymphedema and cellulitis involving right leg) Gastrointestinal (Abdomen): Inspection/Auscultation: normal bowel sounds; abd omen not distended Percussion/Palpation: abdomen soft; abdomen nontender Neurologic: normal touch/pain/proprioception and moves all extremities; no focal motor deficits Lymphatic: no cervical or axillary lymphadenopathy Results & Data Results & Data Vital Signs (Past 12 Hours) Vital Signs Temp Pulse Resp BP BP Pulse Ox O2 Del Method 07/23/24 12:19 36.7 C 70 14 133/77 100 Room Air 07/23/24 08:00 36.6 C 68 16 126/86 97 Room Air 07/23/24 07:50 Room Air Laboratory Results Short CBC 07/23/24 Range/Units 05:51 WBC 5.61 (4.8-10.8) K/ul Hgb 12.1 L (14.0-18.0) g/dl Hct 37.9 L (42.0-52.0) % Plt Count 294 (130-400) K/uL BMP 07/23/24 05:51 Sodium 137 Potassium 3.9 Chloride 99 Carbon Dioxide 33 H BUN 29 H Creatinine 1.39 Glucose 179 H Calcium 9.1 Medications Administered Current Inpatient Medications Acetaminophen (Acetaminophen 500 Mg Tab) 500 mg PO Q6H PRN PRN Reason: fever/pain Stop: 08/14/24 21:36 Last Admin: 07/16/24 06:31 Dose: 500 mg Aspirin (Aspirin 81 Mg Ectab) 81 mg PO DAILY MATT Stop: 08/15/24 08:59 Last Admin: 07/23/24 08:35 Dose: 81 mg Atorvastatin Calcium (Atorvastatin 40 Mg Tab) 80 mg PO DAILY MATT Stop: 08/15/24 08:59 Last Admin: 07/23/24 08:37 Dose: 80 mg Dextrose (Dextrose 50% 50 Ml Syringe) 25 - 50 ml IV UD PRN; Protocol PRN Reason: Hypoglycemia Protocol Stop: 08/14/24 23:39 Duloxetine HCl (Duloxetine Hcl 30 Mg Cap) 30 mg PO QAM MATT Stop: 08/18/24 08:59 Last Admin: 07/20/24 09:18 Dose: 30 mg Ergocalciferol (Ergocalciferol 1250 Mcg (50,000 Units) Cap) 1,250 mcg PO Tu@0900 [facility] Stop: 08/18/24 08:59 Last Admin: 07/19/24 08:27 Dose: 1,250 mcg Ferrous Sulfate (Ferrous Sulfate 325 Mg Tab) 325 mg PO BID MATT Stop: 08/15/24 08:59 Last Admin: 07/23/24 08:39 Dose: 325 mg Furosemide (Furosemide 40 Mg/4 Ml Vial) 40 mg IV BID17 [facility] Stop: 08/18/24 16:59 Last Admin: 07/23/24 09:15 Dose: 40 mg Glucagon (Glucagon For Inj 1 Mg Vial) 1 mg SQ UD PRN; Protocol PRN Reason: Hypoglycemia Protocol Stop: 08/14/24 23:39 Glucose (Glucose 40% Gel 15 Gm Tube) 15 - 30 gm PO UD PRN; Protocol PRN Reason: Hypoglycemia Protocol Stop: 08/14/24 23:39 Glucose (Glucose 10 Tab/Tube) 4 - 8 tab PO UD PRN; Protocol PRN Reason: Hypoglycemia Protocol Stop: 08/14/24 23:39 Promethazine HCl (Phenergan) 12.5 mg in 50.5 mls @ 202 mls/hr IV Q6H PRN PRN Reason: Nausea And Vomiting Stop: 08/14/24 21:36 Last Infusion: 07/23/24 04:01 Dose: Infused Cefepime HCl (Maxipime 2000mg) 2,000 mg in 20 mls @ 5 mls/min IV Q8H [facility]; Protocol Stop: 07/30/24 23:59 Last Admin: 07/23/24 14:15 Dose: 5 mls/min Insulin Aspart (Insulin Aspart Per Unit Charge) 0 units SC ACHS [facility] Stop: 08/14/24 23:39 Last Admin: 07/23/24 12:51 Dose: 10 units Insulin Glargine (Lantus Per Unit Charge) 5 units SQ BID MATT Stop: 08/14/24 21:59 Last Admin: 07/23/24 09:24 Dose: 5 units Lactic Acid (Ammonium Lactate 12% Lotion 225 Gm Btl) 1 gm EXT DAILY [facility] Stop: 08/15/24 08:59 Last Admin: 07/23/24 09:23 Dose: 1 gm Lactobacillus Acidophilus (Advanced Probiotic 625 Mg Capsule) 1,250 mg PO DAILY [facility] Stop: 08/15/24 14:14 Last Admin: 07/23/24 08:40 Dose: 1,250 mg Levothyroxine Sodium (Levothyroxine Sodium 88 Mcg Tablet) 88 mcg PO DAILYBB [facility] Stop: 08/15/24 06:29 Last Admin: 07/23/24 05:45 Dose: 88 mcg Linezolid (Linezolid 600 Mg Tab) 600 mg PO BID MATT Stop: 08/29/24 20:59 Last Admin: 07/23/24 08:41 Dose: 600 mg Lisinopril (Lisinopril 5 Mg Tab) 5 mg PO DAILY MATT Stop: 08/15/24 08:59 Last Admin: 07/19/24 08:28 Dose: 5 mg Loratadine (Loratadine 10 Mg Tab) 10 mg PO DAILY [facility] Stop: 08/15/24 08:59 Last Admin: 07/23/24 08:42 Dose: 10 mg Metoprolol Succinate (Metoprolol Succ 50mg Ext Rel Tab) 150 mg PO QAM MATT Stop: 08/15/24 08:59 Last Admin: 07/23/24 08:43 Dose: 150 mg Miscellaneous (Carbohydrates For Hypoglycemia ) 15 - 30 gm PO UD PRN PRN Reason: Hypoglycemia Protocol Stop: 08/14/24 23:39 Multivitamins/Minerals (Cerovite Adv Formula Tab) 1 tab PO DAILY [facility] Stop: 08/15/24 08:59 Last Admin: 07/23/24 08:45 Dose: 1 tab Ondansetron HCl (Ondansetron Inj 2 Mg/Ml 2 Ml Vial) 4 mg IV Q6H PRN PRN Reason: Nausea And Vomiting Stop: 08/20/24 14:32 Last Admin: 07/22/24 23:43 Dose: 4 mg Oxycodone HCl (Oxycodone Hcl Ir 5 Mg Tab (Immediate Release)) 5 - 10 mg PO QID PRN PRN Reason: Pain Stop: 07/29/24 21:36 Last Admin: 07/23/24 12:50 Dose: 10 mg Pantoprazole Sodium (Pantoprazole 40 Mg Tab) 40 mg PO BID MATT Stop: 08/15/24 08:59 Last Admin: 07/23/24 08:45 Dose: 40 mg Polyethylene Glycol (Polyethylene (Miralax) 17 Gm Pack) 17 gm PO DAILY MATT Stop: 08/19/24 16:44 Last Admin: 07/23/24 08:49 Dose: Not Given Potassium Chloride (Potassium Chloride Crtab 20 Meq Tabcr) 20 meq PO BID MATT Stop: 08/15/24 20:59 Last Admin: 07/23/24 08:47 Dose: 20 meq Pregabalin (Pregabalin 75 Mg Cap) 75 mg PO TID MATT Stop: 08/15/24 08:59 Last Admin: 07/23/24 13:46 Dose: 75 mg Spironolactone (Spironolactone 25 Mg Tab) 25 mg PO DAILY MATT Stop: 08/16/24 08:59 Last Admin: 07/19/24 08:27 Dose: 25 mg Torsemide (Torsemide 20 Mg Tab) 40 mg PO QAM [facility] Stop: 08/15/24 08:59 Last Admin: 07/19/24 08:27 Dose: 40 mg Torsemide (Torsemide 20 Mg Tab) 20 mg PO DAILY@1700 [facility] Stop: 08/15/24 16:59 Last Admin: 07/18/24 17:38 Dose: 20 mg Warfarin Sodium (Warfarin Sod 2 Mg Tab) 2 mg PO DAILY@1600 [facility] Stop: 08/17/24 15:59 Last Admin: 07/22/24 16:45 Dose: 2 mg
[2024-07-24 06:36] LABS: INR 2.8 (0.9-1.1); Prothrombin Time 27.6 Seconds (9.0-12.0)
--- NOTE | 2024-07-24 11:52 | Hospitalist Progress Note ---
Date of Service July 24, 2024 Assessment & Plan (1) Cellulitis of right leg: Plan 58-year-old man with PMH of HFrEF [EF 30 to 35%, TTE 2024] sp ICD, CAD, VT sp ablation, A-fib/DVT on Coumadin, HTN, HLD, pHTN,/OHS on BPAP, bronchial asthma, T2DM on insulin pump, hypothyroidism, CKD [baseline creatinine of 1.2-1.3], chronic anemia [baseline hemoglobin of 10], mood disorder, RLE osteomyelitis sp surgery, left foot osteomyelitis sp left BKA, morbid obesity who was recently admitted 05/24/2024 to 07/01/2024 for decompensated heart failure/LLE cellulitis and infected chronic right foot ulcer. Wound cultures were negative and patient completed cefepime and meropenem course. There was unsuccessful efforts for rehab/permanent placement at the time and patient was discharged home. Patient was admitted at [facility] July 02 to day after [facility] discharge as patient was found by home health nurse living in deplorable condition. Patient was discharged from the hospital despite health care social worker notifying hospital providers that patient was not safe going home. Per patient's home health nursing reports, patient has trouble getting food/patient confused about medication/patient worried about bilateral painful leg swelling with intermittent bloody drainage/patient fell off of his chair and had to call [id number] twice to get him up/patient incapable of transfers and is with bowel incontinence. 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 Patient denied fever/chills/chest pain/cough/Headache. He is being managed for the following: BLE cellulitis Underlying RLE osteomyelitis Medical noncompliance No sepsis at presentation. Patient with recurrent lower extremity cellulitis likely secondary to noncompliance with medications/diet and patient's functional disability. Admitting imagings: CXR with mild pulmonary edema. C-spine CT and head CT with no acute finding. XR Left lower extremity with no acute bony abnormality, left below-knee amputation noted. Right foot x-ray and right foot CT - suggestive of extensive osteomyelitis. No pathologic fracture noted. CT right lower extremity - suggestive of cellulitis. CT Left knee and BKA stump - suggestive of cellulitis. Doxycycline 07/16 and cefepime 07/16 ---> ID evaluated 07/18, recs are iv cefepime 2g q8h, linezolid 600 mg q12h EOT 07/30/2024, recommends amputation of RLE. Linezolid and duloxetine has severe interaction of serotonin syndrome, d/w ID 07/18, plan to decrease dose of duloxetine to half and c/w linezolid Podiatry evaled, recs are RLE amputation vs palliative care. I d/w patient in detail specialist's recs on 07/18 and 07/19, he declines both amputation and palliative care involvement. WOCN consult Follow admitting blood culture. Remains weak but otherwise stable Blood cultures have been negative Appreciate wound care input and recommendation Will continue antibiotic as planned Remains stable and awaiting placement and finishing antibiotic Remains weak and lethargic and also drowsy today Does not have any ongoing uncontrolled infection and denies any fever and/or chills and remains hemodynamically stable Poor motivation- will discuss with him about possible palliative care involvement Much better today and complains some pain in the legs Will discuss about palliative care involvement on Thursday He remains stable and looks much better today and has been conversing normally with me Explained about osteomyelitis involving the leg mainly and the importance of keeping the wound clean and dry as an outpatient If the condition gets worse will get palliative care involved Acute kidney injury: Volume overload status, hold lisinopril and aldactone, c/w lasix 40 mg iv bid, if worsening consider nephro consult in AM. KCL repleted today. labs in AM. Creatinine is minimally improved at 1.53 Advised to drink more fluid and will monitor PRP Kidney function remains stable with creatinine at 1.58he was strongly advised to drink more fluid kidney function remains stable and he was advised to drink more fluid Atrial fibrillation: Rate controlled. continue with heparin bridge, start home Coumadin 07/19 as no plan for procedure (pt doesn't want amputation). Continue with home metoprolol dose. pt/inr in AM. DC heparin drip when pt/inr 2 or above. Heart rate is controlled and will continue with current medication Rate is controlled and does not have any cardiac symptoms INR is therapeutic at 2.6 and the rate is controlled Rate is controlled now Acute on chronic heart failure with reduced ejection fraction: Recent echo with EF of 30 to 35%, BLE swelling noted, CXR with pulmonary edema at presentation. Likely secondary to medication noncompliance. Diuretics as above, continue with fluid restriction. Monitor I's and O's, monitor and replete electrolytes. No signs and or symptoms of fluid overload Adult failure to thrive: Medication noncompliance Inability to take care of the self Patient has had numerous hospitalizations in regards to failure to thrive at home Dietary consult, case management consult. PT/OT. Other chronic medical conditions: Continue with/resume home meds as and when able. T2DM: Sliding scale insulin. PVD: Status post left BKA amputation. Continue with home aspirin and Lipitor. Morbid obesity: Likely contributed to PVD and recurrent cellulitis. Counseling done. CKD: CKD stage III, stable. NINA on CPAP: Continue CPAP at bedtime. Cardiac defibrillator in situ: Noted Major depression disorder: Continue with duloxetine Lymphedema: Likely contributing to cellulitis. Follow-up with lymphedema clinic as an outpatient. Chronic pain syndrome: c/w oxy and lyrica DVT px: Hep drip INR remains subtherapeutic and will continue Coumadin and give increasing dose today INR is still low at 1.7 and will continue current dose of Coumadin Dispo, will need placement, pt/ot, cm Admission and Anticipated Discharge Date Admission Date: July 15, 2024 Subjective 07/20/2024 The patient was seen and examined in medical floor He has been complaining of weakness but denies any fever and no chills He definitely wants his diet to be changed to regular 07/21/2024 The patient was seen and examined in medical floor He remains otherwise stable Still complains to have generalized weakness and lethargy No fever and/or chills - 07/22/2024 The patient was seen and examined in medical floor He has been weak and lethargic and also drowsy today No fever and/or chills and remains hemodynamically stable Denies any significant symptoms 07/23/2024 The patient was seen and examined in medical floor He has been much better today and does not have any drowsiness compared to yesterday Complains of pain in the right leg but denies any other symptoms 07/24/2024 The patient was seen and examined in medical floor He has been much better today and does not have any drowsiness but he still has the pain He wants to try more pain medications He definitely wants occasional regular diet instead of heart healthy Review of Systems Review of Systems: All systems reviewed and are unremarkable except as noted below Physical Exam Physical Exam: Lying in bed without any acute distress Constitutional: well developed, well nourished, + ill appearing and + morbidly obese Eyes: PERRL, conjunctivae normal, anicteric sclerae ENMT: external ear and nose normal, oropharynx normal Neck: trachea midline, no thyromegaly Respiratory: no respiratory distress Auscultation: lungs clear to auscultation bilaterally Cardiovascular: Rate/Rhythm: regular rate and regular rhythm; not tachycardic Extremities: + edema ( bilateral leg edema with lymphedema and cellulitis involving right leg) Gastrointestinal (Abdomen): Inspection/Auscultation: normal bowel sounds; abdomen not distended Percussion/Palpation: abdomen soft; abdomen nontender Neurologic: normal touch/pain/proprioception and moves all extremities; no focal motor deficits Lymphatic: no cervical or axillary lymphadenopathy Results & Data Results & Data Vital Signs (Past 12 Hours) Vital Signs Temp Pulse Resp BP BP Pulse Ox O2 Del Method 07/24/24 07:40 36.9 C 66 16 122/68 96 Room Air 07/24/24 07:00 36.6 C 80 18 101/60 94 Room Air Medications Administered Current Inpatient Medications Acetaminophen (Acetaminophen 500 Mg Tab) 500 mg PO Q6H PRN PRN Reason: fever/pain Stop: 08/14/24 21:36 Last Admin: 07/24/24 08:25 Dose: 500 mg Aspirin (Aspirin 81 Mg Ectab) 81 mg PO DAILY COUNT INCLUDES THE [facility] Stop: 08/15/24 08:59 Last Admin: 07/24/24 07:11 Dose: 81 mg Atorvastatin Calcium (Atorvastatin 40 Mg Tab) 80 mg PO DAILY COUNT INCLUDES THE [facility] Stop: 08/15/24 08:59 Last Admin: 07/24/24 07:11 Dose: 80 mg Dextrose (Dextrose 50% 50 Ml Syringe) 25 - 50 ml IV UD PRN; Protocol PRN Reason: Hypoglycemia Protocol Stop: 08/14/24 23:39 Duloxetine HCl (Duloxetine Hcl 30 Mg Cap) 30 mg PO QAM MATT Stop: 08/18/24 08:59 Last Admin: 07/20/24 09:18 Dose: 30 mg Ergocalciferol (Ergocalciferol 1250 Mcg (50,000 Units) Cap) 1,250 mcg PO Tu@0900 COUNT INCLUDES THE [facility] Stop: 08/18/24 08:59 Last Admin: 07/19/24 08:27 Dose: 1,250 mcg Ferrous Sulfate (Ferrous Sulfate 325 Mg Tab) 325 mg PO BID COUNT INCLUDES THE [facility] Stop: 08/15/24 08:59 Last Admin: 07/24/24 07:11 Dose: 325 mg Furosemide (Furosemide 40 Mg/4 Ml Vial) 40 mg IV BID17 COUNT INCLUDES THE [facility] Stop: 08/18/24 16:59 Last Admin: 07/24/24 07:11 Dose: 40 mg Glucagon (Glucagon For Inj 1 Mg Vial) 1 mg SQ UD PRN; Protocol PRN Reason: Hypoglycemia Protocol Stop: 08/14/24 23:39 Glucose (Glucose 40% Gel 15 Gm Tube) 15 - 30 gm PO UD PRN; Protocol PRN Reason: Hypoglycemia Protocol Stop: 08/14/24 23:39 Glucose (Glucose 10 Tab/Tube) 4 - 8 tab PO UD PRN; Protocol PRN Reason: Hypoglycemia Protocol Stop: 08/14/24 23:39 Promethazine HCl (Phenergan) 12.5 mg in 50.5 mls @ 202 mls/hr IV Q6H PRN PRN Reason: Nausea And Vomiting Stop: 08/14/24 21:36 Last Infusion: 07/23/24 04:01 Dose: Infused Cefepime HCl (Maxipime 2000mg) 2,000 mg in 20 mls @ 5 mls/min IV Q8H COUNT INCLUDES THE [facility]; Protocol Stop: 07/30/24 23:59 Last Admin: 07/24/24 06:14 Dose: 5 mls/min Insulin Aspart (Insulin Aspart Per Unit Charge) 0 units SC ACHS COUNT INCLUDES THE [facility] Stop: 08/14/24 23:39 Last Admin: 07/24/24 08:27 Dose: 10 units Insulin Glargine (Lantus Per Unit Charge) 5 units SQ BID COUNT INCLUDES THE [facility] Stop: 08/14/24 21:59 Last Admin: 07/24/24 08:26 Dose: 5 units Lactic Acid (Ammonium Lactate 12% Lotion 225 Gm Btl) 1 gm EXT DAILY COUNT INCLUDES THE [facility] Stop: 08/15/24 08:59 Last Admin: 07/24/24 08:26 Dose: 1 gm Lactobacillus Acidophilus (Advanced Probiotic 625 Mg Capsule) 1,250 mg PO DAILY COUNT INCLUDES THE [facility] Stop: 08/15/24 14:14 Last Admin: 07/24/24 07:11 Dose: 1,250 mg Levothyroxine Sodium (Levothyroxine Sodium 88 Mcg Tablet) 88 mcg PO DAILYBB COUNT INCLUDES THE [facility] Stop: 08/15/24 06:29 Last Admin: 07/24/24 06:14 Dose: 88 mcg Linezolid (Linezolid 600 Mg Tab) 600 mg PO BID MATT Stop: 08/29/24 20:59 Last Admin: 07/24/24 07:12 Dose: 600 mg Lisinopril (Lisinopril 5 Mg Tab) 5 mg PO DAILY MATT Stop: 08/15/24 08:59 Last Admin: 07/19/24 08:28 Dose: 5 mg Loratadine (Loratadine 10 Mg Tab) 10 mg PO DAILY MATT Stop: 08/15/24 08:59 Last Admin: 07/24/24 07:12 Dose: 10 mg Metoprolol Succinate (Metoprolol Succ 50mg Ext Rel Tab) 150 mg PO QAM MATT Stop: 08/15/24 08:59 Last Admin: 07/24/24 07:12 Dose: 150 mg Miscellaneous (Carbohydrates For Hypoglycemia ) 15 - 30 gm PO UD PRN PRN Reason: Hypoglycemia Protocol Stop: 08/14/24 23:39 Multivitamins/Minerals (Cerovite Adv Formula Tab) 1 tab PO DAILY COUNT INCLUDES THE [facility] Stop: 08/15/24 08:59 Last Admin: 07/24/24 07:12 Dose: 1 tab Ondansetron HCl (Ondansetron Inj 2 Mg/Ml 2 Ml Vial) 4 mg IV Q6H PRN PRN Reason: Nausea And Vomiting Stop: 08/20/24 14:32 Last Admin: 07/24/24 04:50 Dose: 4 mg Oxycodone HCl (Oxycodone Hcl Ir 5 Mg Tab (Immediate Release)) 5 - 10 mg PO QID PRN PRN Reason: Pain Stop: 07/29/24 21:36 Last Admin: 07/24/24 08:25 Dose: 5 mg Pantoprazole Sodium (Pantoprazole 40 Mg Tab) 40 mg PO BID MATT Stop: 08/15/24 08:59 Last Admin: 07/24/24 07:12 Dose: 40 mg Polyethylene Glycol (Polyethylene (Miralax) 17 Gm Pack) 17 gm PO DAILY MATT Stop: 08/19/24 16:44 Last Admin: 07/24/24 07:12 Dose: 17 gm Potassium Chloride (Potassium Chloride Crtab 20 Meq Tabcr) 20 meq PO BID COUNT INCLUDES THE [facility] Stop: 08/15/24 20:59 Last Admin: 07/24/24 07:13 Dose: 20 meq Pregabalin (Pregabalin 75 Mg Cap) 75 mg PO TID MATT Stop: 08/15/24 08:59 Last Admin: 07/24/24 07:13 Dose: 75 mg Spironolactone (Spironolactone 25 Mg Tab) 25 mg PO DAILY MATT Stop: 08/16/24 08:59 Last Admin: 07/19/24 08:27 Dose: 25 mg Torsemide (Torsemide 20 Mg Tab) 40 mg PO QAM COUNT INCLUDES THE [facility] Stop: 08/15/24 08:59 Last Admin: 07/19/24 08:27 Dose: 40 mg Torsemide (Torsemide 20 Mg Tab) 20 mg PO DAILY@1700 COUNT INCLUDES THE [facility] Stop: 08/15/24 16:59 Last Admin: 07/18/24 17:38 Dose: 20 mg Warfarin Sodium (Warfarin Sod 2 Mg Tab) 2 mg PO DAILY@1600 COUNT INCLUDES THE [facility] Stop: 08/17/24 15:59 Last Admin: 07/23/24 16:11 Dose: 2 mg
[2024-07-25 06:47] LABS: INR 2.7 (0.9-1.1)
--- NOTE | 2024-07-25 15:57 | Hospitalist Progress Note ---
Date of Service July 25, 2024 Assessment & Plan (1) Cellulitis of right leg: Plan 58-year-old man with PMH of HFrEF [EF 30 to 35%, TTE 2024] sp ICD, CAD, VT sp ablation, A-fib/DVT on Coumadin, HTN, HLD, pHTN,/OHS on BPAP, bronchial asthma, T2DM on insulin pump, hypothyroidism, CKD [baseline creatinine of 1.2-1.3], chronic anemia [baseline hemoglobin of 10], mood disorder, RLE osteomyelitis sp surgery, left foot osteomyelitis sp left BKA, morbid obesity who was recently admitted 05/24/2024 to 07/01/2024 for decompensated heart failure/LLE cellulitis and infected chronic right foot ulcer. Wound cultures were negative and patient completed cefepime and meropenem course. There was unsuccessful efforts for rehab/permanent placement at the time and patient was discharged home. Patient was admitted at [facility] July 02 to day after [facility] discharge as patient was found by home health nurse living in deplorable condition. Patient was discharged from the hospital despite health care social worker notifying hospital providers that patient was not safe going home. Per patient's home health nursing reports, patient has trouble getting food/patient confused about medication/patient worried about bilateral painful leg swelling with intermittent bloody drainage/patient fell off of his chair and had to call [employer] twice to get him up/patient incapable of transfers and is with bowel incontinence. 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 Patient denied fever/chills/chest pain/cough/Headache. He is being managed for the following: BLE cellulitis Underlying RLE osteomyelitis Medical noncompliance No sepsis at presentation. Patient with recurrent lower extremity cellulitis likely secondary to noncompliance with medications/diet and patient's functional disability. Admitting imagings: CXR with mild pulmonary edema. C-spine CT and head CT with no acute finding. XR Left lower extremity with no acute bony abnormality, left below-knee amputation noted. Right foot x-ray and right foot CT - suggestive of extensive osteomyelitis. No pathologic fracture noted. CT right lower extremity - suggestive of cellulitis. CT Left knee and BKA stump - suggestive of cellulitis. Doxycycline 07/16 and cefepime 07/16 ---> ID evaluated 07/18, recs are iv cefepime 2g q8h, linezolid 600 mg q12h EOT 07/30/2024, recommends amputation of RLE. Linezolid and duloxetine has severe interaction of serotonin syndrome, d/w ID 07/18, plan to decrease dose of duloxetine to half and c/w linezolid Podiatry evaled, recs are RLE amputation vs palliative care. I d/w patient in detail specialist's recs on 07/18 and 07/19, he declines both amputation and palliative care involvement. WOCN consult Follow admitting blood culture. Remains weak but otherwise stable Blood cultures have been negative Appreciate wound care input and recommendation Will continue antibiotic as planned Remains stable and awaiting placement and finishing antibiotic Remains weak and lethargic and also drowsy today Does not have any ongoing uncontrolled infection and denies any fever and/or chills and remains hemodynamically stable Poor motivation- will discuss with him about possible palliative care involvement Much better today and complains some pain in the legs Will discuss about palliative care involvement on Thursday He remains stable and looks much better today and has been conversing normally with me Explained about osteomyelitis involving the leg mainly and the importance of keeping the wound clean and dry as an outpatient He has been stable and is not interested in palliative care right now His leg wound grew Pseudomonas seems to be local colonization and discussed with ID who did not have any further recommendation Will finish the course of antibiotic as planned Awaiting placement Acute kidney injury: Volume overload status, hold lisinopril and aldactone, c/w lasix 40 mg iv bid, if worsening consider nephro consult in AM. KCL repleted today. labs in AM. Creatinine is minimally improved at 1.53 Advised to drink more fluid and will monitor PRP Kidney function remains stable with creatinine at 1.58he was strongly advised to drink more fluid kidney function remains stable and he was advised to drink more fluid Creatinine improved at 1.39 on 07/23/24 Will monitor PRP Atrial fibrillation: Rate controlled. continue with heparin bridge, start home Coumadin 07/19 as no plan for procedure (pt doesn't want amputation). Continue with home metoprolol dose. pt/inr in AM. DC heparin drip when pt/inr 2 or above. Heart rate is controlled and will continue with current medication Rate is controlled and does not have any cardiac symptoms INR is therapeutic at 2.6 and the rate is controlled Rate is controlled now Acute on chronic heart failure with reduced ejection fraction: Recent echo with EF of 30 to 35%, BLE swelling noted, CXR with pulmonary edema at presentation. Likely secondary to medication noncompliance. Diuretics as above, continue with fluid restriction. Monitor I's and O's, monitor and replete electrolytes. No signs and or symptoms of fluid overload Adult failure to thrive: Medication noncompliance Inability to take care of the self Patient has had numerous hospitalizations in regards to failure to thrive at home Dietary consult, case management consult. PT/OT. Other chronic medical conditions: Continue with/resume home meds as and when able. T2DM: Sliding scale insulin. PVD: Status post left BKA amputation. Continue with home aspirin and Lipitor. Morbid obesity: Likely contributed to PVD and recurrent cellulitis. Counseli ng done. CKD: CKD stage III, stable. NINA on CPAP: Continue CPAP at bedtime. Cardiac defibrillator in situ: Noted Major depression disorder: Continue with duloxetine Lymphedema: Likely contributing to cellulitis. Follow-up with lymphedema clinic as an outpatient. Chronic pain syndrome: c/w oxy and lyrica DVT px: Hep drip INR remains subtherapeutic and will continue Coumadin and give increasing dose today INR is still low at 1.7 and will continue current dose of Coumadin INR is therapeutic Dispo, will need placement, pt/ot, cm Admission and Anticipated Discharge Date Admission Date: July 15, 2024 Subjective 07/20/2024 The patient was seen and examined in medical floor He has been complaining of weakness but denies any fever and no chills He definitely wants his diet to be changed to regular 07/21/2024 The patient was seen and examined in medical floor He remains otherwise stable Still complains to have generalized weakness and lethargy No fever and/or chills - 07/22/2024 The patient was seen and examined in medical floor He has been weak and lethargic and also drowsy today No fever and/or chills and remains hemodynamically stable Denies any significant symptoms 07/23/2024 The patient was seen and examined in medical floor He has been much better today and does not have any drowsiness compared to yesterday Complains of pain in the right leg but denies any other symptoms 07/24/2024 The patient was seen and examined in medical floor He has been much better today and does not have any drowsiness but he still has the pain He wants to try more pain medications He definitely wants occasional regular diet instead of heart healthy 07/25/2024 The patient was seen and examined in medical floor He has been stable and does not have any more drowsiness His infection seems to be controlled without any fever and no chills and white count is not elevated He does not want to comply with the diet and wants to eat regular food occasionally and also does not want t restrict his fluid intake Review of Systems Review of Systems: All systems reviewed and are unremarkable except as noted below Physical Exam Physical Exam: Lying in bed without any acute distress Constitutional: well developed, well nourished, + ill appearing and + morbidly obese Eyes: PERRL, conjunctivae normal, anicteric sclerae ENMT: external ear and nose normal, oropharynx normal Neck: trachea midline, no thyromegaly Respiratory: no respiratory distress Auscultation: lungs clear to auscultation bilaterally Cardiovascular: Rate/Rhythm: regular rate and regular rhythm; not tachycardic Extremities: + edema ( bilateral leg edema with lymphedema and cellulitis involving right leg) Gastrointestinal (Abdomen): Inspection/Auscultation: normal bowel sounds; abdomen not distended Percussion/Palpation: abdomen soft; abdomen nontender Musculoskeletal: No acute arthritis involving any of the joint Neurologic: normal touch/pain/proprioception and moves all extremities; no focal motor deficits Lymphatic: no cervical or axillary lymphadenopathy Results & Data Results & Data Vital Signs (Past 12 Hours) Vital Signs Temp Pulse Pulse Pulse Resp BP BP 07/25/24 14:54 36.7 C 77 16 105/66 07/25/24 11:30 36.7 C 71 18 115/69 07/25/24 09:32 73 119/72 07/25/24 09:18 07/25/24 07:42 36.8 C 70 18 105/68 Pulse Ox O2 Del Method 07/25/24 14:54 97 Room Air 07/25/24 11:30 97 Room Air 07/25/24 09:32 07/25/24 09:18 Room Air 07/25/24 07:42 96 Room Air Medications Administered Current Inpatient Medications Acetaminophen (Acetaminophen 500 Mg Tab) 500 mg PO Q6H PRN PRN Reason: fever/pain Stop: 08/14/24 21:36 Last Admin: 07/24/24 14:00 Dose: 500 mg Aspirin (Aspirin 81 Mg Ectab) 81 mg PO DAILY MATT Stop: 08/15/24 08:59 Last Admin: 07/25/24 09:34 Dose: 81 mg Atorvastatin Calcium (Atorvastatin 40 Mg Tab) 80 mg PO DAILY MATT Stop: 08/15/24 08:59 Last Admin: 07/25/24 09:34 Dose: 80 mg Dextrose (Dextrose 50% 50 Ml Syringe) 25 - 50 ml IV UD PRN; Protocol PRN Reason: Hypoglycemia Protocol Stop: 08/14/24 23:39 Duloxetine HCl (Duloxetine Hcl 30 Mg Cap) 30 mg PO QAM [facility] Stop: 08/18/24 08:59 Last Admin: 07/20/24 09:18 Dose: 30 mg Ergocalciferol (Ergocalciferol 1250 Mcg (50,000 Units) Cap) 1,250 mcg PO Tu@0900 MATT Stop: 08/18/24 08:59 Last Admin: 07/19/24 08:27 Dose: 1,250 mcg Ferrous Sulfate (Ferrous Sulfate 325 Mg Tab) 325 mg PO BID MATT Stop: 08/15/24 08:59 Last Admin: 07/25/24 09:35 Dose: 325 mg Furosemide (Furosemide 40 Mg/4 Ml Vial) 40 mg IV [id number] [facility] Stop: 08/18/24 16:59 Last Admin: 07/25/24 10:08 Dose: 40 mg Glucagon (Glucagon For Inj 1 Mg Vial) 1 mg SQ UD PRN; Protocol PRN Reason: Hypoglycemia Protocol Stop: 08/14/24 23:39 Glucose (Glucose 40% Gel 15 Gm Tube) 15 - 30 gm PO UD PRN; Protocol PRN Reason: Hypoglycemia Protocol Stop: 08/14/24 23:39 Glucose (Glucose 10 Tab/Tube) 4 - 8 tab PO UD PRN; Protocol PRN Reason: Hypoglycemia Protocol Stop: 08/14/24 23:39 Promethazine HCl (Phenergan) 12.5 mg in 50.5 mls @ 202 mls/hr IV Q6H PRN PRN Reason: Nausea And Vomiting Stop: 08/14/24 21:36 Last Infusion: 07/25/24 08:55 Dose: Infused Cefepime HCl (Maxipime 2000mg) 2,000 mg in 20 mls @ 5 mls/min IV Q8H [facility]; Protocol Stop: 07/30/24 23:59 Last Admin: 07/25/24 14:26 Dose: 5 mls/min Insulin Aspart (Insulin Aspart Per Unit Charge) 0 units SC ACHS MATT Stop: 08/14/24 23:39 Last Admin: 07/25/24 12:20 Dose: 11 units Insulin Glargine (Lantus Per Unit Charge) 5 units SQ BID MATT Stop: 08/14/24 21:59 Last Admin: 07/25/24 09:08 Dose: 5 units Lactic Acid (Ammonium Lactate 12% Lotion 225 Gm Btl) 1 gm EXT DAILY [facility] Stop: 08/15/24 08:59 Last Admin: 07/25/24 09:34 Dose: 1 gm Lactobacillus Acidophilus (Advanced Probiotic 625 Mg Capsule) 1,250 mg PO DAILY MATT Stop: 08/15/24 14:14 Last Admin: 07/25/24 09:35 Dose: 1,250 mg Levothyroxine Sodium (Levothyroxine Sodium 88 Mcg Tablet) 88 mcg PO DAILYBB MATT Stop: 08/15/24 06:29 Last Admin: 07/25/24 06:14 Dose: 88 mcg Linezolid (Linezolid 600 Mg Tab) 600 mg PO BID MATT Stop: 08/29/24 20:59 Last Admin: 07/25/24 09:35 Dose: 600 mg Lisinopril (Lisinopril 5 Mg Tab) 5 mg PO DAILY MATT Stop: 08/15/24 08:59 Last Admin: 07/19/24 08:28 Dose: 5 mg Loratadine (Loratadine 10 Mg Tab) 10 mg PO DAILY MATT Stop: 08/15/24 08:59 Last Admin: 07/25/24 09:35 Dose: 10 mg Metoprolol Succinate (Metoprolol Succ 50mg Ext Rel Tab) 150 mg PO QAM [facility] Stop: 08/15/24 08:59 Last Admin: 07/25/24 09:35 Dose: 150 mg Miscellaneous (Carbohydrates For Hypoglycemia ) 15 - 30 gm PO UD PRN PRN Reason: Hypoglycemia Protocol Stop: 08/14/24 23:39 Multivitamins/Minerals (Cerovite Adv Formula Tab) 1 tab PO DAILY MATT Stop: 08/15/24 08:59 Last Admin: 07/25/24 09:37 Dose: 1 tab Ondansetron HCl (Ondansetron Inj 2 Mg/Ml 2 Ml Vial) 4 mg IV Q6H PRN PRN Reason: Nausea And Vomiting Stop: 08/20/24 14:32 Last Admin: 07/25/24 06:14 Dose: 4 mg Oxycodone HCl (Oxycodone Hcl Ir 5 Mg Tab (Immediate Release)) 5 - 10 mg PO QID PRN PRN Reason: Pain Stop: 07/29/24 21:36 Last Admin: 07/25/24 09:41 Dose: 10 mg Pantoprazole Sodium (Pantoprazole 40 Mg Tab) 40 mg PO BID MATT Stop: 08/15/24 08:59 Last Admin: 07/25/24 09:37 Dose: 40 mg Polyethylene Glycol (Polyethylene (Miralax) 17 Gm Pack) 17 gm PO DAILY [facility] Stop: 08/19/24 16:44 Last Admin: 07/25/24 08:43 Dose: Not Given Potassium Chloride (Potassium Chloride Crtab 20 Meq Tabcr) 20 meq PO BID [facility] Stop: 08/15/24 20:59 Last Admin: 07/25/24 09:37 Dose: 20 meq Pregabalin (Pregabalin 75 Mg Cap) 75 mg PO TID [facility] Stop: 08/15/24 08:59 Last Admin: 07/25/24 14:18 Dose: 75 mg Spironolactone (Spironolactone 25 Mg Tab) 25 mg PO DAILY MATT Stop: 08/16/24 08:59 Last Admin: 07/19/24 08:27 Dose: 25 mg Torsemide (Torsemide 20 Mg Tab) 40 mg PO QAM [facility] Stop: 08/15/24 08:59 Last Admin: 07/19/24 08:27 Dose: 40 mg Torsemide (Torsemide 20 Mg Tab) 20 mg PO DAILY@1700 [facility] Stop: 08/15/24 16:59 Last Admin: 07/18/24 17:38 Dose: 20 mg Warfarin Sodium (Warfarin Sod 2 Mg Tab) 2 mg PO DAILY@1600 [facility] Stop: 08/17/24 15:59 Last Admin: 07/24/24 16:14 Dose: 2 mg
[2024-07-26] MEDS ORDERED: PHARMACY GLYCEMIC MGMT CONSULT PRN (11:31)
--- NOTE | 2024-07-26 14:30 | Pharmacy Report ---
Pharmacy Glycemic Short Note 2 - Date of Service July 26, 2024 - Glycemic Short BSG Results (Last 24 hours): 07/25/24 07/25/24 07/26/24 16:30 20:17 11:21 POC Glucose 206 H 178 H 306 H* 07/26/24 07/26/24 11:23 11:24 POC Glucose 302 H* 281 H OUTPATIENT ANTIDIABETIC REGIMEN: * Lantus 12 units SQ BID * Novolog 10 units SQ AC * Januvia 50mg PO daily * HbA1c: 6.5% (05/25/24) ASSESSMENT: * Mr Lyle was admitted on 07/15/24 with cellulitis/possible osteo. * Pharmacy was consulted today to help with glycemic management. * Lantus dose will be increased this evening, as it appears that fasting BSGs have been above goal. * Novolog parameters have been adjusted to better match patient's home use, and also based on data from past admissions. * Pharmacy will continue to follow and adjust regimen as indicated. PLAN FOR INPATIENT GLYCEMIC CONTROL: * Hold outpatient oral diabetes medications * Basal insulin * Lantus 8 units SQ BID * Bolus insulin * NovoLog per scale ACHS or Q6hrs while NPO * Goal Range: Low 110 mg/dL - High 140 mg/dL * Correction Factor: 30 mg/dL/unit * Nutritional / Prandial insulin per carb ratio of 1 unit per 8 grams CHO consumed
[2024-07-26] MEDS: ERTAPENEM 1000MG 1,000 MG/10 ML SYR IV SCH (15:05)
--- NOTE | 2024-07-26 17:07 | Hospitalist Progress Note ---
Date of Service July 26, 2024 Assessment & Plan (1) Cellulitis of right leg: Plan 58-year-old man with PMH of HFrEF [EF 30 to 35%, TTE 2024] sp ICD, CAD, VT sp ablation, A-fib/DVT on Coumadin, HTN, HLD, pHTN,/OHS on BPAP, bronchial asthma, T2DM on insulin pump, hypothyroidism, CKD [baseline creatinine of 1.2-1.3], chronic anemia [baseline hemoglobin of 10], mood disorder, RLE osteomyelitis sp surgery, left foot osteomyelitis sp left BKA, morbid obesity who was recently admitted 05/24/2024 to 07/01/2024 for decompensated heart failure/LLE cellulitis and infected chronic right foot ulcer. Wound cultures were negative and patient completed cefepime and meropenem course. There was unsuccessful efforts for rehab/permanent placement at the time and patient was discharged home. Patient was admitted at [facility] July 02 to day after [facility] discharge as patient was found by home health nurse living in deplorable condition. Patient was discharged from the hospital despite social science analyst notifying hospital providers that patient was not safe going home. 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 BLE cellulitis Underlying RLE osteomyelitis Medical noncompliance No sepsis at presentation. Patient with recurrent lower extremity cellulitis likely secondary to noncompliance with medications/diet and patient's functional disability. Admitting imaging: CXR with mild pulmonary edema. C-spine CT and head CT with no acute finding. XR Left lower extremity with no acute bony abnormality, left below-knee amputation noted. Right foot x-ray and right foot CT - suggestive of extensive osteomyelitis. No pathologic fracture noted. CT right lower extremity - suggestive of cellulitis. CT Left knee and BKA stump - suggestive of cellulitis. --Doxycycline 07/16 and cefepime 07/16 ---> ID evaluated 07/18, recs are iv cefe pime 2g q8h, linezolid 600 mg q12h EOT 07/30/2024, recommends amputation of RLE. Linezolid and duloxetine has severe interaction of serotonin syndrome, d/w ID 07/18, plan to decrease dose of duloxetine to half and c/w linezolid Podiatry evaluated, recs are RLE amputation vs palliative care. --Patient currently refuses amputation and does not believe he has osteomyelitis despite explaining in detail --Wound culture growing Klebsiella pneumoniae ESBL, Alcaligenes faecalis --Blood cultures negative to date -- Continue local wound care --Change IV cefepime to ertapenem Continue Zyvox Will reconsult ID Patient prefers to follow-up with his primary investment consultant Dr. Mckenzie on discharge Needs to follow-up with wound care on discharge as well Patient is not interested in palliative care currently Acute kidney injury on CKD III: Volume overload status held lisinopril, Aldactone, Torsemide Continue IV Lasix for now Continue fluid restriction Creatinine 1.3 today Monitor renal function and avoid nephrotoxic agents as able Atrial fibrillation: Continue metoprolol Continue Coumadin for anticoagulation Monitor INR Acute on chronic heart failure with reduced ejection fraction: Recent echo with EF of 30 to 35%, BLE swelling noted, CXR with pulmonary edema at presentation. Likely secondary to medication noncompliance. Diuretics as above, continue with fluid restriction. Monitor I's and O's, monitor and replete electrolytes. Monitor volume status closely Adult failure to thrive: Medication noncompliance Inability to take care of the self Patient has had numerous hospitalizations in regards to failure to thrive at home Dietary consult, case management consult. PT/OT. Other chronic medical conditions: Continue with/resume home meds as and when able. T2DM: Sliding scale insulin. PVD: Status post left BKA amputation. Continue with home aspirin and Lipitor. Morbid obesity: BMI 46. Likely contributed to PVD and recurrent cellulitis. Counseling done. NINA on CPAP: Continue CPAP at bedtime. Cardiac defibrillator in situ: Noted Major depression disorder: Continue with duloxetine Lymphedema: Likely contributing to cellulitis. Follow-up with lymphedema clinic as an outpatient. Chronic pain syndrome: c/w oxy and lyrica DVT Px: Warfarin CODE STATUS Full code Admission and Anticipated Discharge Date Admission Date: July 15, 2024 Subjective Patient is seen and examined at bedside States having some leg pain Denies any chest pain, dyspnea, nausea, vomiting, abdominal pain Noncompliant with diet, fluid restriction Review of Systems Review of Systems: All systems reviewed & are unremarkable except as noted in Subjective Physical Exam Physical Exam: Physical Exam: Vitals signs as noted above General Appearance:Morbidly Obese, no apparent distress, ill-appearing Head: normocephalic, Atraumatic Eyes: normal inspection, EOMI Neck: supple, Trachea midline Respiratory/Chest: Normal breath sounds, CTA, No accessory muscle use Cardiovascular: Irregularly irregular, No murmur Abdomen/GI:Soft, Non tender, Bowel sounds present Extremities/Musculoskeletal:normal inspection, LE edema, lymphedema, Left BKA Neurologic/Psych:AAOX3, grossly no focal neurological deficits Skin: normal color, warm Results & Data Results & Data Vital Signs (Past 12 Hours) Vital Signs Temp Pulse Resp BP Pulse Ox O2 Del Method 07/26/24 15:18 36.7 C 75 16 125/71 97 Room Air 07/26/24 07:20 36.5 C 72 16 132/79 97 Room Air
[2024-07-26] MEDS: LANTUS PER UNIT CHARGE SQ SCH (21:39)
[2024-07-27] MEDS: LANTUS PER UNIT CHARGE SQ ONE (12:55)
--- NOTE | 2024-07-27 13:37 | Palliative Care Consultation ---
Date of Consultation July 27, 2024 Assessment & Plan (1) Self neglect: +contributory negligence refuses to allow most care does not engage with medical and nursing teams non compliant (2) Palliative care by specialist: Introduced Palliative Medicine and explained our role in patient's care. Patient and/or family were receptive to palliative services for goals of care discussions. Reviewed we are different from hospice, a home health nurse visiting service. Plan limited engagement from pt who was not willing to explore any ACP discussion Updated Dr Allen We will re attempt tomorrow He can be followed in OP Pall med clinic with me or with [facility] team per his preference TS 85min Thank you for allowing us to participate in the ongoing care of this patient. Please page with any additional concerns. Yajaira Fabian DNP Director, Palliative Medicine History of Present Illness Reason for Consultation: [facility] Attending Physician: Tommy Allen MD History of Present Illness Ben is a 58yo male admitted 07/15/24 with recurrent bilateral LE cellulitis He has h/o LLE osteomyelitis status post left BKA and now with +underlying RLE osteomyelitis Chronically impaired healing due to patient functional disability and suboptimal home situation PMH: +Afib, h/o DVT w/subtherapeutic INR, concern for medical noncompliance due to functional disability chronic systolic heart failure, EF 35%, TTE 2024) sp ICD, mild congestion on imaging hx history CAD hx VT status post ablation hypertension, stable hyperlipidemia, on statin Rx pulmonary hypertension/OHS on BiPAP as per records bronchial asthma, not in acute exacerbation DM2 insulin requiring, well-controlled as of recent hemoglobin A1c of 6.01 May 2024 hypothyroidism, recent TSH from April 2024 slight elevated CRI, at baseline chronic anemia, hemoglobin at baseline despite intermittent bleeding from LE wounds morbid obesity Signif hx non compliance, medical non adherence poor home situation chronic self neglect does not adhere to medical reccs Allergies Allergy/AdvReac Type Severity Reaction Status Date / Time benzonatate AdvReac Intermediate choking, Verified 07/15/24 19:22 gagging Home Medications Medication Instructions Recorded Confirmed Type acetaminophen 325 mg tablet 650 mg PO QID PRN Pain 02/08/24 07/15/24 History (Tylenol) aspirin 81 mg tablet,delayed 81 mg PO DAILY 02/08/24 07/15/24 History release atorvastatin 80 mg tablet 80 mg PO DAILY 02/08/24 07/15/24 History levothyroxine 88 mcg tablet 88 mcg PO DAILYBB 02/08/24 07/15/24 History oxycodone 10 mg tablet 10 mg PO Q8H PRN Pain, Severe 02/08/24 07/15/24 History spironolactone 25 mg tablet 25 mg PO DAILY 02/09/24 07/15/24 History triamcinolone acetonide 0.1 % 1 applic topical TID 02/09/24 07/15/24 History lotion ammonium lactate 12 % lotion 1 applic topical DAILY DRY SKIN ON 05/24/24 07/15/24 History LEGS betamethasone dipropionate 0.05 % 1 applic topical BID 05/24/24 07/15/24 History topical cream loratadine 10 mg tablet 10 mg PO DAILY 05/24/24 07/15/24 History torsemide 20 mg tablet 40 mg PO QAM 05/24/24 07/15/24 History duloxetine 60 mg capsule,delayed 60 mg PO QAM #30 caps 07/01/24 07/15/24 Rx release pregabalin 75 mg capsule (Lyrica) 75 mg PO TID #90 caps 07/01/24 07/15/24 Rx warfarin 2 mg tablet 2 mg PO DAILY@1600 #30 tabs 07/01/24 07/15/24 Rx insulin syringe,safety needle 0.5 #200 ea 07/08/24 07/15/24 Rx mL 29 gauge x 1/2" (BD SafetyGlide Insulin Syringe) dicyclomine 10 mg capsule 10 mg PO QID PRN ABD PAIN 07/15/24 07/15/24 History ergocalciferol (vitamin D2) 1,250 1,250 mcg PO WK 07/15/24 07/15/24 History mcg (50,000 unit) capsule (Vitamin D2) ferrous sulfate 325 mg (65 mg 325 mg PO BID 07/15/24 07/15/24 History iron) tablet insulin aspart (niacinamide) 10 unit subcut AC 07/15/24 07/15/24 History (U-100) 100 unit/mL subcutaneous solution insulin glargine 100 unit/mL (3 12 unit subcut BID 07/15/24 07/15/24 History mL) subcutaneous pen (Lantus Solostar U-100 Insulin) lisinopril 5 mg tablet 5 mg PO DAILY 07/15/24 07/15/24 History metoprolol succinate 50 mg 150 mg PO QAM 07/15/24 07/15/24 History tablet,extended release 24 hr multivit,tx with iron 27 1 tab PO DAILY 07/15/24 07/15/24 History tq-zathpob-onpid acid 0.4 mg-minerals tablet nystatin 100,000 unit/gram topical 1 applic topical BID 07/15/24 07/15/24 History powder omeprazole 20 mg capsule,delayed 20 mg PO BID 07/15/24 07/15/24 History release potassium chloride 20 mEq 20 meq PO BID 07/15/24 07/15/24 History tablet,extended release(part/cryst) sitagliptin phosphate 50 mg tablet 50 mg PO DAILY 07/15/24 07/15/24 History (Januvia) torsemide 20 mg tablet 20 mg PO QPM 07/15/24 07/15/24 History Patient History Medical History Osteomyelitis of foot, right, acute Diabetes Acute on chronic combined systolic and diastolic CHF (congestive heart failure) Depression with suicidal ideation Acute osteomyelitis of left foot T2DM (type 2 diabetes mellitus) CHF (congestive heart failure) Acute on chronic combined systolic (congestive) and diastolic (congestive) heart failure Diabetic ulcer of right foot Sustained ventricular tachycardia Pneumonia due to COVID-19 virus SARS-CoV-2 positive Sepsis Cellulitis of left lower leg Diabetic ulcer of left heel associated with diabetes mellitus due to underlying condition, limited to breakdown of skin Acute on chronic renal failure Acute hypoxemic respiratory failure Sleep apnea BIPAP Rectal bleeding Depression Deformity of foot Adams fracture Base of left fifth metatarsal, nonhealing x years Diabetic ulcer of left foot associated with type 2 diabetes mellitus, with fat layer exposed Hx of sepsis 06/2019 Arthritis Venous stasis ulcer of right lower leg with edema of right lower leg Hypokalemia Bacteremia due to group B Streptococcus Lymphedema Sustained VT (ventricular tachycardia) GERD (gastroesophageal reflux disease) Hx of osteomyelitis Hx of myocardial infarction found on testing Asthma well controlled, 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 CKD (chronic kidney disease) stage 3, GFR 30-59 ml/min Surgical History History of esophagogastroduodenoscopy (EGD) H/O foot surgery LEFT FOOT ULCER DEBRIDEMENT H/O cardiac radiofrequency ablation OCTOBER 2019 ([facility]) AT [facility] History of cardiac cath V. tach -- no stent. 06/2019. unsure where it was done History of sinus surgery Hx of tonsillectomy History of colonoscopy Hx of amputation of lesser toe H/O shoulder surgery left Family History Sister Family history of diabetes mellitus 2 Grandmother (Maternal) Family history of diabetes mellitus Grandfather (Maternal) Family history of diabetes mellitus Father Cancer Mother Cancer Other No family history of adverse response to anesthesia Social History Smoking Status: Never smoker Second Hand Exposure: No; Do You Dip or Chew Tobacco: No; Hx Alcohol Use: No Hx Substance Use: No Preferred Language: Kyrgyz Communication Ability: Effective Station Installation Supervisor Required: No Beliefs That Will Affect Care: Spiritual marital status: Current Living Situation: Alone current occupational status: disabled How many Children do You have: 3 Feels Safe at Home: Yes Safety Concerns: Feels Safe At This Time Assistive Devices: Hospital Bed, Scooter/Electric Scooter, Walker and Wheelchair Review of Systems Review of Systems: Other (pt would not answer) Physical Exam Physical Exam: obese male resting in bed Left BKA RLE dressing resp effort WAL lungs distant CV distant, irreg +pannus, +morbid obesity subdued mood, not cooperative with this provider Results & Data Vital Signs (Past 12 Hours) Vital Signs Temp Pulse Pulse Resp BP BP BP 07/27/24 11:59 36.6 C 74 18 100/72 07/27/24 09:00 07/27/24 08:00 36.7 C 74 18 105/70 07/27/24 07:04 36.7 C 69 18 97/64 L Pulse Ox O2 Del Method 07/27/24 11:59 97 Room Air 07/27/24 09:00 Room Air 07/27/24 08:00 96 Room Air 07/27/24 07:04 97 Room Air Laboratory Results 07/27/24 07/27/24 07/27/24 Range/Units 16:32 15:14 11:49 WBC 6.15 (4.8-10.8) K/ul RBC 4.28 L (4.70-6.10) M/uL Hgb 11.7 L (14.0-18.0) g/dl Hct 36.8 L (42.0-52.0) % MCV 86.0 (80.0-100.0) fL MCH 27.3 (25.0-34.0) pg MCHC 31.8 L (32.0-36.0) g/dL RDW Std Deviation 53.0 H (36.4-46.3) fL RDW Coeff of Мария 17.0 H (11.5-14.5) % Plt Count 181 (130-400) K/uL MPV 9.2 L (9.4-12.4) fL Immature Gran % (Auto) % Neut % (Auto) % Lymph % (Auto) % [place] % (Auto) % Eos % (Auto) % Baso % (Auto) % Neut # (Auto) (1.40-6.50) K/uL Lymph # (Auto) (1.20-3.40) K/uL [place] # (Auto) (0.11-0.59) K/uL Eos # (Auto) (0.00-0.50) K/uL Baso # (Auto) (0.00-0.20) K/uL Immature Gran # (Auto) (0.01-0.20) K/uL PT 19.5 H (9.0-12.0) Seconds INR 1.9 H (0.9-1.1) Heparin Anti-Xa, Unfract (0.3-0.7) IU/ml VBG pH (7.36-7.41) VBG pCO2 (38-50) mmHg VBG pO2 mmHg VBG HCO3 mmol/L VBG O2 Saturation % VBG Base Excess mEq/L Sodium 137 (136-145) mmol/L Potassium 3.8 (3.5-5.1) mmol/L Chloride 103 (98-107) mmol/L Carbon Dioxide 29 (21-32) mmol/L Anion Gap 5 (3-11) BUN 35 H (6-23) mg/dl Creatinine 1.56 H (0.6-1.4) mg/dl Est Cr Clr Drug Dosing 77.1 ml/min eGFR 50.53 BUN/Creatinine Ratio 22.4 H (10-20) Glucose 203 H (70-99(Fasting)) mg/dl POC Glucose 213 H 203 H (70-99) mg/dl Calcium 8.8 (8.6-10.3) mg/dl Magnesium (1.7-2.4) mg/dl 07/27/24 07/26/24 07/26/24 Range/Units 10:02 21:28 16:24 WBC (4.8-10.8) K/ul RBC (4.70-6.10) M/uL Hgb (14.0-18.0) g/dl Hct (42.0-52.0) % MCV (80.0-100.0) fL MCH (25.0-34.0) pg MCHC (32.0-36.0) g/dL RDW Std Deviation (36.4-46.3) fL RDW Coeff of Мария (11.5-14.5) % Plt Count (130-400) K/uL MPV (9.4-12.4) fL Immature Gran % (Auto) % Neut % (Auto) % Lymph % (Auto) % [place] % (Auto) % Eos % (Auto) % Baso % (Auto) % Neut # (Auto) (1.40-6.50) K/uL Lymph # (Auto) (1.20-3.40) K/uL [place] # (Auto) (0.11-0.59) K/uL Eos # (Auto) (0.00-0.50) K/uL Baso # (Auto) (0.00-0.20) K/uL Immature Gran # (Auto) (0.01-0.20) K/uL PT (9.0-12.0) Seconds INR (0.9-1.1) Heparin Anti-Xa, Unfract (0.3-0.7) IU/ml VBG pH (7.36-7.41) VBG pCO2 (38-50) mmHg VBG pO2 mmHg VBG HCO3 mmol/L VBG O2 Saturation % VBG Base Excess mEq/L Sodium (136-145) mmol/L Potassium (3.5-5.1) mmol/L Chloride (98-107) mmol/L Carbon Dioxide (21-32) mmol/L Anion Gap (3-11) BUN (6-23) mg/dl Creatinine (0.6-1.4) mg/dl Est Cr Clr Drug Dosing ml/min eGFR BUN/Creatinine Ratio (10-20) Glucose (70-99(Fasting)) mg/dl POC Glucose 160 H 162 H 266 H (70-99) mg/dl Calcium (8.6-10.3) mg/dl Magnesium (1.7-2.4) mg/dl 07/26/24 07/26/24 07/26/24 Range/Units 11:24 11:23 11:21 WBC (4.8-10.8) K/ul RBC (4.70-6.10) M/uL Hgb (14.0-18.0) g/dl Hct (42.0-52.0) % MCV (80.0-100.0) fL MCH (25.0-34.0) pg MCHC (32.0-36.0) g/dL RDW Std Deviation (36.4-46.3) fL RDW Coeff of Мария (11.5-14.5) % Plt Count (130-400) K/uL MPV (9.4-12.4) fL Immature Gran % (Auto) % Neut % (Auto) % Lymph % (Auto) % [place] % (Auto) % Eos % (Auto) % Baso % (Auto) % Neut # (Auto) (1.40-6.50) K/uL Lymph # (Auto) (1.20-3.40) K/uL [place] # (Auto) (0.11-0.59) K/uL Eos # (Auto) (0.00-0.50) K/uL Baso # (Auto) (0.00-0.20) K/uL Immature Gran # (Auto) (0.01-0.20) K/uL PT (9.0-12.0) Seconds INR (0.9-1.1) Heparin Anti-Xa, Unfract (0.3-0.7) IU/ml VBG pH (7.36-7.41) VBG pCO2 (38-50) mmHg VBG pO2 mmHg VBG HCO3 mmol/L VBG O2 Saturation % VBG Base Excess mEq/L Sodium (136-145) mmol/L Potassium (3.5-5.1) mmol/L Chloride (98-107) mmol/L Carbon Dioxide (21-32) mmol/L Anion Gap (3-11) BUN (6-23) mg/dl Creatinine (0.6-1.4) mg/dl Est Cr Clr Drug Dosing ml/min eGFR BUN/Creatinine Ratio (10-20) Glucose (70-99(Fasting)) mg/dl POC Glucose 281 H 302 H* 306 H* (70-99) mg/dl Calcium (8.6-10.3) mg/dl Magnesium (1.7-2.4) mg/dl 07/25/24 07/25/24 07/25/24 Range/Units 20:17 16:30 11:25 WBC (4.8-10.8) K/ul RBC (4.70-6.10) M/uL Hgb (14.0-18.0) g/dl Hct (42.0-52.0) % MCV (80.0-100.0) fL MCH (25.0-34.0) pg MCHC (32.0-36.0) g/dL RDW Std Deviation (36.4-46.3) fL RDW Coeff of Мария (11.5-14.5) % Plt Count (130-400) K/uL MPV (9.4-12.4) fL Immature Gran % (Auto) % Neut % (Auto) % Lymph % (Auto) % [place] % (Auto) % Eos % (Auto) % Baso % (Auto) % Neut # (Auto) (1.40-6.50) K/uL Lymph # (Auto) (1.20-3.40) K/uL [place] # (Auto) (0.11-0.59) K/uL Eos # (Auto) (0.00-0.50) K/uL Baso # (Auto) (0.00-0.20) K/uL Immature Gran # (Auto) (0.01-0.20) K/uL PT (9.0-12.0) Seconds INR (0.9-1.1) Heparin Anti-Xa, Unfract (0.3-0.7) IU/ml VBG pH (7.36-7.41) VBG pCO2 (38-50) mmHg VBG pO2 mmHg VBG HCO3 mmol/L VBG O2 Saturation % VBG Base Excess mEq/L Sodium (136-145) mmol/L Potassium (3.5-5.1) mmol/L Chloride (98-107) mmol/L Carbon Dioxide (21-32) mmol/L Anion Gap (3-11) BUN (6-23) mg/dl Creatinine (0.6-1.4) mg/dl Est Cr Clr Drug Dosing ml/min eGFR BUN/Creatinine Ratio (10-20) Glucose (70-99(Fasting)) mg/dl POC Glucose 178 H 206 H 260 H (70-99) mg/dl Calcium (8.6-10.3) mg/dl Magnesium (1.7-2.4) mg/dl 07/25/24 07/25/24 07/24/24 Range/Units 07:30 06:02 20:18 WBC (4.8-10.8) K/ul RBC (4.70-6.10) M/uL Hgb (14.0-18.0) g/dl Hct (42.0-52.0) % MCV (80.0-100.0) fL MCH (25.0-34.0) pg MCHC (32.0-36.0) g/dL RDW Std Deviation (36.4-46.3) fL RDW Coeff of Мария (11.5-14.5) % Plt Count (130-400) K/uL MPV (9.4-12.4) fL Immature Gran % (Auto) % Neut % (Auto) % Lymph % (Auto) % [place] % (Auto) % Eos % (Auto) % Baso % (Auto) % Neut # (Auto) (1.40-6.50) K/uL Lymph # (Auto) (1.20-3.40) K/uL [place] # (Auto) (0.11-0.59) K/uL Eos # (Auto) (0.00-0.50) K/uL Baso # (Auto) (0.00-0.20) K/uL Immature Gran # (Auto) (0.01-0.20) K/uL PT 27.0 H (9.0-12.0) Seconds INR 2.7 H (0.9-1.1) Heparin Anti-Xa, Unfract (0.3-0.7) IU/ml VBG pH (7.36-7.41) VBG pCO2 (38-50) mmHg VBG pO2 mmHg VBG HCO3 mmol/L VBG O2 Saturation % VBG Base Excess mEq/L Sodium (136-145) mmol/L Potassium (3.5-5.1) mmol/L Chloride (98-107) mmol/L Carbon Dioxide (21-32) mmol/L Anion Gap (3-11) BUN (6-23) mg/dl Creatinine (0.6-1.4) mg/dl Est Cr Clr Drug Dosing ml/min eGFR BUN/Creatinine Ratio (10-20) Glucose (70-99(Fasting)) mg/dl POC Glucose 201 H 220 H (70-99) mg/dl Calcium (8.6-10.3) mg/dl Magnesium (1.7-2.4) mg/dl 07/24/24 07/24/24 07/24/24 Range/Units 16:31 11:35 07:38 WBC (4.8-10.8) K/ul RBC (4.70-6.10) M/uL Hgb (14.0-18.0) g/dl Hct (42.0-52.0) % MCV (80.0-100.0) fL MCH (25.0-34.0) pg MCHC (32.0-36.0) g/dL RDW Std Deviation (36.4-46.3) fL RDW Coeff of Мария (11.5-14.5) % Plt Count (130-400) K/uL MPV (9.4-12.4) fL Immature Gran % (Auto) % Neut % (Auto) % Lymph % (Auto) % [place] % (Auto) % Eos % (Auto) % Baso % (Auto) % Neut # (Auto) (1.40-6.50) K/uL Lymph # (Auto) (1.20-3.40) K/uL [place] # (Auto) (0.11-0.59) K/uL Eos # (Auto) (0.00-0.50) K/uL Baso # (Auto) (0.00-0.20) K/uL Immature Gran # (Auto) (0.01-0.20) K/uL PT (9.0-12.0) Seconds INR (0.9-1.1) Heparin Anti-Xa, Unfract (0.3-0.7) IU/ml VBG pH (7.36-7.41) VBG pCO2 (38-50) mmHg VBG pO2 mmHg VBG HCO3 mmol/L VBG O2 Saturation % VBG Base Excess mEq/L Sodium (136-145) mmol/L Potassium (3.5-5.1) mmol/L Chloride (98-107) mmol/L Carbon Dioxide (21-32) mmol/L Anion Gap (3-11) BUN (6-23) mg/dl Creatinine (0.6-1.4) mg/dl Est Cr Clr Drug Dosing ml/min eGFR BUN/Creatinine Ratio (10-20) Glucose (70-99(Fasting)) mg/dl POC Glucose 238 H 231 H 213 H (70-99) mg/dl Calcium (8.6-10.3) mg/dl Magnesium (1.7-2.4) mg/dl 07/24/24 07/23/24 07/23/24 Range/Units 05:35 20:30 16:36 WBC (4.8-10.8) K/ul RBC (4.70-6.10) M/uL Hgb (14.0-18.0) g/dl Hct (42.0-52.0) % MCV (80.0-100.0) fL MCH (25.0-34.0) pg MCHC (32.0-36.0) g/dL RDW Std Deviation (36.4-46.3) fL RDW Coeff of Мария (11.5-14.5) % Plt Count (130-400) K/uL MPV (9.4-12.4) fL Immature Gran % (Auto) % Neut % (Auto) % Lymph % (Auto) % [place] % (Auto) % Eos % (Auto) % Baso % (Auto) % Neut # (Auto) (1.40-6.50) K/uL Lymph # (Auto) (1.20-3.40) K/uL [place] # (Auto) (0.11-0.59) K/uL Eos # (Auto) (0.00-0.50) K/uL Baso # (Auto) (0.00-0.20) K/uL Immature Gran # (Auto) (0.01-0.20) K/uL PT 27.6 H (9.0-12.0) Seconds INR 2.8 H (0.9-1.1) Heparin Anti-Xa, Unfract (0.3-0.7) IU/ml VBG pH (7.36-7.41) VBG pCO2 (38-50) mmHg VBG pO2 mmHg VBG HCO3 mmol/L VBG O2 Saturation % VBG Base Excess mEq/L Sodium (136-145) mmol/L Potassium (3.5-5.1) mmol/L Chloride (98-107) mmol/L Carbon Dioxide (21-32) mmol/L Anion Gap (3-11) BUN (6-23) mg/dl Creatinine (0.6-1.4) mg/dl Est Cr Clr Drug Dosing ml/min eGFR BUN/Creatinine Ratio (10-20) Glucose (70-99(Fasting)) mg/dl POC Glucose 282 H 212 H (70-99) mg/dl Calcium (8.6-10.3) mg/dl Magnesium (1.7-2.4) mg/dl 07/23/24 07/23/24 07/23/24 Range/Units 11:56 07:40 05:51 WBC 5.61 (4.8-10.8) K/ul RBC 4.48 L (4.70-6.10) M/uL Hgb 12.1 L (14.0-18.0) g/dl Hct 37.9 L (42.0-52.0) % MCV 84.6 (80.0-100.0) fL MCH 27.0 (25.0-34.0) pg MCHC 31.9 L (32.0-36.0) g/dL RDW Std Deviation 52.1 H (36.4-46.3) fL RDW Coeff of Мария 16.9 H (11.5-14.5) % Plt Count 294 (130-400) K/uL MPV 9.8 (9.4-12.4) fL Immature Gran % (Auto) 1.8 % Neut % (Auto) 63.6 % Lymph % (Auto) 18.2 % [place] % (Auto) 10.5 % Eos % (Auto) 4.5 % Baso % (Auto) 1.4 % Neut # (Auto) 3.57 (1.40-6.50) K/uL Lymph # (Auto) 1.02 L (1.20-3.40) K/uL [place] # (Auto) 0.59 (0.11-0.59) K/uL Eos # (Auto) 0.25 (0.00-0.50) K/uL Baso # (Auto) 0.08 (0.00-0.20) K/uL Immature Gran # (Auto) 0.10 (0.01-0.20) K/uL PT (9.0-12.0) Seconds INR (0.9-1.1) Heparin Anti-Xa, Unfract (0.3-0.7) IU/ml VBG pH (7.36-7.41) VBG pCO2 (38-50) mmHg VBG pO2 mmHg VBG HCO3 mmol/L VBG O2 Saturation % VBG Base Excess mEq/L Sodium 137 (136-145) mmol/L Potassium 3.9 (3.5-5.1) mmol/L Chloride 99 (98-107) mmol/L Carbon Dioxide 33 H (21-32) mmol/L Anion Gap 5 (3-11) BUN 29 H (6-23) mg/dl Creatinine 1.39 (0.6-1.4) mg/dl Est Cr Clr Drug Dosing 86.5 ml/min eGFR 58.04 BUN/Creatinine Ratio 20.9 H (10-20) Glucose 179 H (70-99(Fasting)) mg/dl POC Glucose 210 H 160 H (70-99) mg/dl Calcium 9.1 (8.6-10.3) mg/dl Magnesium 1.6 L (1.7-2.4) mg/dl 07/23/24 07/22/24 07/22/24 Range/Units 05:47 20:28 16:15 WBC (4.8-10.8) K/ul RBC (4.70-6.10) M/uL Hgb (14.0-18.0) g/dl Hct (42.0-52.0) % MCV (80.0-100.0) fL MCH (25.0-34.0) pg MCHC (32.0-36.0) g/dL RDW Std Deviation (36.4-46.3) fL RDW Coeff of Мария (11.5-14.5) % Plt Count (130-400) K/uL MPV (9.4-12.4) fL Immature Gran % (Auto) % Neut % (Auto) % Lymph % (Auto) % [place] % (Auto) % Eos % (Auto) % Baso % (Auto) % Neut # (Auto) (1.40-6.50) K/uL Lymph # (Auto) (1.20-3.40) K/uL [place] # (Auto) (0.11-0.59) K/uL Eos # (Auto) (0.00-0.50) K/uL Baso # (Auto) (0.00-0.20) K/uL Immature Gran # (Auto) (0.01-0.20) K/uL PT 26.1 H (9.0-12.0) Seconds INR 2.6 H (0.9-1.1) Heparin Anti-Xa, Unfract (0.3-0.7) IU/ml VBG pH (7.36-7.41) VBG pCO2 (38-50) mmHg VBG pO2 mmHg VBG HCO3 mmol/L VBG O2 Saturation % VBG Base Excess mEq/L Sodium (136-145) mmol/L Potassium (3.5-5.1) mmol/L Chloride (98-107) mmol/L Carbon Dioxide (21-32) mmol/L Anion Gap (3-11) BUN (6-23) mg/dl Creatinine (0.6-1.4) mg/dl Est Cr Clr Drug Dosing ml/min eGFR BUN/Creatinine Ratio (10-20) Glucose (70-99(Fasting)) mg/dl POC Glucose 279 H 259 H (70-99) mg/dl Calcium (8.6-10.3) mg/dl Magnesium (1.7-2.4) mg/dl 07/22/24 07/22/24 07/22/24 Range/Units 11:41 07:43 05:39 WBC (4.8-10.8) K/ul RBC (4.70-6.10) M/uL Hgb (14.0-18.0) g/dl Hct (42.0-52.0) % MCV (80.0-100.0) fL MCH (25.0-34.0) pg MCHC (32.0-36.0) g/dL RDW Std Deviation (36.4-46.3) fL RDW Coeff of Мария (11.5-14.5) % Plt Count (130-400) K/uL MPV (9.4-12.4) fL Immature Gran % (Auto) % Neut % (Auto) % Lymph % (Auto) % [place] % (Auto) % Eos % (Auto) % Baso % (Auto) % Neut # (Auto) (1.40-6.50) K/uL Lymph # (Auto) (1.20-3.40) K/uL [place] # (Auto) (0.11-0.59) K/uL Eos # (Auto) (0.00-0.50) K/uL Baso # (Auto) (0.00-0.20) K/uL Immature Gran # (Auto) (0.01-0.20) K/uL PT 25.1 H (9.0-12.0) Seconds INR 2.5 H (0.9-1.1) Heparin Anti-Xa, Unfract 0.37 (0.3-0.7) IU/ml VBG pH (7.36-7.41) VBG pCO2 (38-50) mmHg VBG pO2 mmHg VBG HCO3 mmol/L VBG O2 Saturation % VBG Base Excess mEq/L Sodium (136-145) mmol/L Potassium (3.5-5.1) mmol/L Chloride (98-107) mmol/L Carbon Dioxide (21-32) mmol/L Anion Gap (3-11) BUN (6-23) mg/dl Creatinine (0.6-1.4) mg/dl Est Cr Clr Drug Dosing ml/min eGFR BUN/Creatinine Ratio (10-20) Glucose (70-99(Fasting)) mg/dl POC Glucose 258 H 212 H (70-99) mg/dl Calcium (8.6-10.3) mg/dl Magnesium (1.7-2.4) mg/dl 0307/21/24 07/21/24 Range/Units 20:18 16:42 11:45 WBC (4.8-10.8) K/ul RBC (4.70-6.10) M/uL Hgb (14.0-18.0) g/dl Hct (42.0-52.0) % MCV (80.0-100.0) fL MCH (25.0-34.0) pg MCHC (32.0-36.0) g/dL RDW Std Deviation (36.4-46.3) fL RDW Coeff of Мария (11.5-14.5) % Plt Count (130-400) K/uL MPV (9.4-12.4) fL Immature Gran % (Auto) % Neut % (Auto) % Lymph % (Auto) % [place] % (Auto) % Eos % (Auto) % Baso % (Auto) % Neut # (Auto) (1.40-6.50) K/uL Lymph # (Auto) (1.20-3.40) K/uL [place] # (Auto) (0.11-0.59) K/uL Eos # (Auto) (0.00-0.50) K/uL Baso # (Auto) (0.00-0.20) K/uL Immature Gran # (Auto) (0.01-0.20) K/uL PT (9.0-12.0) Seconds INR (0.9-1.1) Heparin Anti-Xa, Unfract (0.3-0.7) IU/ml VBG pH (7.36-7.41) VBG pCO2 (38-50) mmHg VBG pO2 mmHg VBG HCO3 mmol/L VBG O2 Saturation % VBG Base Excess mEq/L Sodium (136-145) mmol/L Potassium (3.5-5.1) mmol/L Chloride (98-107) mmol/L Carbon Dioxide (21-32) mmol/L Anion Gap (3-11) BUN (6-23) mg/dl Creatinine (0.6-1.4) mg/dl Est Cr Clr Drug Dosing ml/min eGFR BUN/Creatinine Ratio (10-20) Glucose (70-99(Fasting)) mg/dl POC Glucose 227 H 276 H 216 H (70-99) mg/dl Calcium (8.6-10.3) mg/dl Magnesium (1.7-2.4) mg/dl 07/21/24 07/21/24 07/20/24 Range/Units 07:54 05:59 22:35 WBC (4.8-10.8) K/ul RBC (4.70-6.10) M/uL Hgb (14.0-18.0) g/dl Hct (42.0-52.0) % MCV (80.0-100.0) fL MCH (25.0-34.0) pg MCHC (32.0-36.0) g/dL RDW Std Deviation (36.4-46.3) fL RDW Coeff of Мария (11.5-14.5) % Plt Count (130-400) K/uL MPV (9.4-12.4) fL Immature Gran % (Auto) % Neut % (Auto) % Lymph % (Auto) % [place] % (Auto) % Eos % (Auto) % Baso % (Auto) % Neut # (Auto) (1.40-6.50) K/uL Lymph # (Auto) (1.20-3.40) K/uL [place] # (Auto) (0.11-0.59) K/uL Eos # (Auto) (0.00-0.50) K/uL Baso # (Auto) (0.00-0.20) K/uL Immature Gran # (Auto) (0.01-0.20) K/uL PT 18.0 H (9.0-12.0) Seconds INR 1.7 H (0.9-1.1) Heparin Anti-Xa, Unfract 0.41 (0.3-0.7) IU/ml VBG pH 7.41 (7.36-7.41) VBG pCO2 53 H (38-50) mmHg VBG pO2 29 mmHg VBG HCO3 34 mmol/L VBG O2 Saturation < 60.0 % VBG Base Excess 7.3 mEq/L Sodium 135 L (136-145) mmol/L Potassium 3.9 (3.5-5.1) mmol/L Chloride 100 (98-107) mmol/L Carbon Dioxide 30 (21-32) mmol/L Anion Gap 5 (3-11) BUN 29 H (6-23) mg/dl Creatinine 1.58 H (0.6-1.4) mg/dl Est Cr Clr Drug Dosing 76.1 ml/min eGFR 49.77 BUN/Creatinine Ratio 18.4 (10-20) Glucose 195 H (70-99(Fasting)) mg/dl POC Glucose 196 H (70-99) mg/dl Calcium 8.8 (8.6-10.3) mg/dl Magnesium (1.7-2.4) mg/dl Diagnostic Findings Chest X-Ray 07/15/24 16:59 Chest radiograph, one view History: Chest pain. Wound clinic Comparison: 05/23/2024 Findings: Single AP view of the chest performed. No focal consolidation or pleural effusion. There is mild perihilar opacity. No pneumothorax. The heart size appears enlarged. Left chest wall single-lead AICD. Indistinct appearing pulmonary vascularity. No evidence for lymphadenopathy. No visualized bony or soft tissue abnormality. Impression: Cardiomegaly. Mild perihilar pulmonary edema. Electronically signed by Nader Medrano 07-15-2024 7:[address] 07/15/24 17:00 CT cervical spine without IV contrast History: Pain Comparison: None Technique: Using multidetector thin collimation helical acquisition technique, axial, coronal and sagittal CT images through the cervical spine were obtained without intravenous contrast. Dose reduction techniques were achieved by using automatic exposure control and/or adjustment of mA and/or kV according to patient size and/or use of iterative reconstruction technique. Findings: The cervical vertebrae are normally aligned. Straightened cervical lordosis. No acute fracture or subluxation. No prevertebral edema. Severe degenerative disc height loss at C5-6, where there is a prominent anterior bridging osteophyte. There are moderate multilevel degenerative changes elsewhere throughout the cervical spine. Mature bony degenerative fusion across the right C2-3 facet joint. No abnormality of the paraspinous soft tissues. Impression: No acute fracture or traumatic subluxation. Electronically signed by Nader Medrano 07-15-2024 7:[address] 07/15/24 17:00 CT head without contrast History: Headache Comparison: None Technique: Using multidetector thin collimation helical acquisition technique, axial, coronal and sagittal CT images from the skull base to the vertex were obtained without intravenous contrast. Dose reduction techniques were achieved by using automatic exposure control and/or adjustment of mA and/or kV according to patient size and/or use of iterative reconstruction technique. Findings: No intracranial hemorrhage, mass-effect, or midline shift. The ventricles are proportionate to the cerebral sulci. The simons to white matter differentiation of the cerebral hemispheres is preserved. The basal cisterns are patent. The visualized paranasal sinuses are clear. Mastoid air cells are clear. Impression: No acute intracranial pathology. Electronically signed by Nader Medrano 07-15-2024 7:10 PM Tibia/Fibula X-Ray 07/15/24 17:02 Study: Left tib-fib 2 views, right tib-fib 2 views History: Pain Comparison: None Findings: There is no acute fracture or dislocation. Alignment is anatomic. Joint spaces are well maintained. Below-knee amputation of the left knee seen at the proximal tibial and fibular diaphyses where there is healing callus formation. There is generalized subcutaneous edema about the right lower leg, as well as about to the remaining portion of the left lower leg. There is heavy arterial sclerosis seen. Bone mineralization is normal. Impression: No acute bony abnormality. Left below-knee amputation. Generalized soft tissue edema bilaterally. Electronically signed by Nader Medrano 07-15-2024 7:56 PM Foot X-Ray 07/15/24 17:03 Study: Right foot 2 views History: Wound clinic Comparison: None Findings/impression: A tiny thin curvilinear foreign density is a within the plantar aspect of the soft tissues of the great toe. The tuft of the distal phalanx of the great toe appears blunted, however which appears well-corticated, likely reflecting chronic erosion. The remaining digits, 2-5, appear grossly unremarkable. The soft tissues of the great toe are swollen. There is generalized soft tissue swelling about the foot. Erosive changes with diminished overall size about the plantar aspect of the entire calcaneus. Small and heterotopic ossification within the Achilles tendon. Heavy arterial sclerosis. Electronically signed by Nader Medrano 07-15-2024 7:56 PM Tibia/Fibula X-Ray 07/15/24 17:03 Study: Left tib-fib 2 views, right tib-fib 2 views History: Pain Comparison: None Findings: There is no acute fracture or dislocation. Alignment is anatomic. Joint spaces are well maintained. Below-knee amputation of the left knee seen at the proximal tibial and fibular diaphyses where there is healing callus formation. There is generalized subcutaneous edema about the right lower leg, as well as about to the remaining portion of the left lower leg. There is heavy arterial sclerosis seen. Bone mineralization is normal. Impression: No acute bony abnormality. Left below-knee amputation. Generalized soft tissue edema bilaterally. Electronically signed by Nader Medrano 07-15-2024 7:[address] 07/15/24 21:13 Exam(s): CT RIGHT FOOT With Contrast IV Amt: 120ml optiray 320 EXAM: CT Right Lower Extremity With Intravenous Contrast, Foot CLINICAL HISTORY: swelling. TECHNIQUE: Axial computed tomography images of the right foot with intravenous contrast. CTDI is 14.18 mGy and DLP is 862.3 mGy-cm. Automated exposure control was utilized for the study. A dose lowering technique was utilized adhering to the principles of ALARA. CONTRAST: Patient received 120ml optiray 320 of IV contrast COMPARISON: No relevant prior studies available. FINDINGS: Bones/joints: Diffuse osteopenia and somewhat mottled sclerotic appearance of the osseous structures. There is cortical destruction involving the lateral and plantar aspect of the calcaneus, the cuboid and the proximal head of the fifth metatarsal bone. No pathologic fracture. Degenerative changes throughout the foot. There is a pes planus configuration of the arch. There is surgical absence of the distal phalanx of the first digit. No dislocation. Soft tissues: There is a soft tissue defect involving the plantar and lateral aspect of the hindfoot and midfoot. The soft tissue defect approximates the abnormal osseous structures detailed in the bone section with only 2-3 mm of soft tissue covering the osseous structures. In addition, there is diffuse subcutaneous edema, most prominent overlying the dorsum of the foot. No tracking subcutaneous emphysema or well- defined loculated fluid collection. No radiopaque foreign body. IMPRESSION: 1. Diffuse osteopenia and somewhat mottled sclerotic appearance of the osseous structures. There is cortical destruction involving the lateral and plantar aspect of the calcaneus, the cuboid and the proximal head of the fifth metatarsal bone. The appearance is most consistent with extensive osteomyelitis. No pathologic fracture. 2. Soft tissue defect involving the lateral and plantar aspect of the hind and midfoot. Diffuse soft tissue edema. In the absence of traumatic injury, the primary consideration is cellulitis. No tracking subcutaneous emphysema to suggest necrotizing fasciitis or well-defined abscess. Electronically signed by: Mychal Nuñez MD 07/16/24 00:[address] 07/15/24 21:13 Exam(s): CT EXTREMITY RIGHT LOWER With Contrast IV Amt: 120ml optiray 320 EXAM: CT Right Lower Extremity With Intravenous Contrast CLINICAL HISTORY: swelling. TECHNIQUE: Axial computed tomography images of the right lower extremity with intravenous contrast. CTDI is 14.18 mGy and DLP is 862.3 mGy-cm. Automated exposure control was utilized for the study. A dose lowering technique was utilized adhering to the principles of ALARA. CONTRAST: Patient received 120ml optiray 320 of IV contrast COMPARISON: No relevant prior studies available. FINDINGS: Bones/joints: No acute osseous abnormality involving the tibia and fibula. Please see the dedicated CT examination of the right foot for findings regarding the osseous structures of the foot. No dislocation. Soft tissues: Diffuse circumferential subcutaneous fat stranding and edema with extensive dermal thickening noted throughout the right calf from the included distal thigh through the ankle. No well-defined fluid collection or tracking subcutaneous emphysema. There is scattered subdermal punctate calcifications. Fatty infiltration of the muscle bundles. No intramuscular focal abnormality. IMPRESSION: Diffuse circumferential soft tissue swelling and edema with overlying dermal thickening. In the absence of traumatic injury, the differential considerations include venous stasis changes or cellulitis. No well- defined loculated abscess or tracking subcutaneous emphysema to suggest necrotizing fasciitis. Electronically signed by: Mychal Nuñez MD 07/16/24 00:[address] 07/15/24 21:15 Exam(s): CT LEFT KNEE With Contrast IV Amt: 120ml optiray 320 EXAM: CT Left Lower Extremity With Intravenous Contrast, Knee CLINICAL HISTORY: bka stump swelling. TECHNIQUE: Axial computed tomography images of the left knee with intravenous contrast. CTDI is 14.18 mGy and DLP is 862.3 mGy-cm. Automated exposure control was utilized for the study. A dose lowering technique was utilized adhering to the principles of ALARA. CONTRAST: Patient received 120ml optiray 320 of IV contrast COMPARISON: No relevant prior studies available. FINDINGS: Bones/joints: The regional osseous structures are intact. There are reactive changes along the distal aspect of the left tibial and fibular stumps. No cortical destruction or acute periosteal reaction. No dislocation. Soft tissues: The left BKA is noted. There is diffuse subcutaneous fat stranding and edema throughout the included left knee and BKA with asymmetric edema and dermal thickening involving the dependent stump. No loculated fluid collection. No tracking subcutaneous emphysema. IMPRESSION: 1. The left BKA is noted. There is diffuse subcutaneous fat stranding and edema throughout the included left knee and BKA with asymmetric edema and dermal thickening involving the dependent stump. No loculated fluid collection. No tracking subcutaneous emphysema to suggest necrotizing fasciitis. The primary consideration is dependent venous stasis changes or cellulitis. 2. No findings to suggest osteomyelitis of the regional osseous structures. No acute osseous abnormality. Electronically signed by: Mychal Nuñez MD 07/16/24 00:54 AM PG Care Time/CCT Total # of Minutes Spent Total Time Spent with Patient: Total time spent is greater than 50% in coordination of care (as documented) at patient's floor/unit and/or counseling patient: I spent minutes overall addressing this case: 20 min in medical data review/discussion with referring provider(s) and/or preparation for the visit incl OSH data 20 min in direct interaction with the patient/exam 000 min in Advance Care Planning/Goals of Care discussions as detailed above in note (must be >16min) 20 min in subsequent review and synthesis of assessment and plan 20 min communicating with other providers regarding the patient's case: [place] [address] IN/OBS CONSULT LVL 5,80M Patient Type New History Comprehensive Exam Comprehensive Medical Decision Making High Complexity Diagnoses Self neglect R46.89 Palliative care by specialist Z51.5
[2024-07-27 15:35] LABS: Hematocrit (blood only) 36.8 % (42.0-52.0); Hemoglobin 11.7 g/dl (14.0-18.0); Mean Corpuscular Hemoglobin 27.3 pg (25.0-34.0); Mean Corpuscular Hgb Conc 31.8 g/dL (32.0-36.0); Mean Platelet Volume 9.2 fL (9.4-12.4); Platelet Count 181 K/uL (130-400); Red Blood Count 4.28 M/uL (4.70-6.10); White Blood Count 6.15 K/ul (4.8-10.8)
[2024-07-27 15:52] LABS: BUN Creatinine Ratio 22.4 (10-20); Calcium 8.8 mg/dl (8.6-10.3); Creatinine Clr Calc Pharmacy 77.1 ml/min; Potassium 3.8 mmol/L (3.5-5.1)
[2024-07-27 16:03] LABS: INR 1.9 (0.9-1.1); Prothrombin Time 19.5 Seconds (9.0-12.0)
--- NOTE | 2024-07-27 16:55 | Hospitalist Progress Note ---
Date of Service July 27, 2024 Assessment & Plan (1) Cellulitis of right leg: Plan 58-year-old man with PMH of HFrEF [EF 30 to 35%, TTE 2024] sp ICD, CAD, VT sp ablation, A-fib/DVT on Coumadin, HTN, HLD, pHTN,/OHS on BPAP, bronchial asthma, T2DM on insulin pump, hypothyroidism, CKD [baseline creatinine of 1.2-1.3], chronic anemia [baseline hemoglobin of 10], mood disorder, RLE osteomyelitis sp surgery, left foot osteomyelitis sp left BKA, morbid obesity who was recently admitted 05/24/2024 to 07/01/2024 for decompensated heart failure/LLE cellulitis and infected chronic right foot ulcer. Wound cultures were negative and patient completed cefepime and meropenem course. There was unsuccessful efforts for rehab/permanent placement at the time and patient was discharged home. Patient was admitted at [facility] July 02 to day after [facility] discharge as patient was found by home health nurse living in deplorable condition. Patient was discharged from the hospital despite older adult social work specialist notifying hospital providers that patient was not safe going home. Per patient's home health nursing reports, patient has trouble getting food/patient confused about medication/patient worried about bilateral painful leg swelling with intermittent bloody drainage/patient fell off of his chair and had to call [employer] twice to get him up/patient incapable of transfers and is with bowel incontinence.Patient reports having sore throat/myalgia/jay sea/loose stools for last 2 to 3 days [employer]. 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 BLE cellulitis Underlying RLE osteomyelitis Medical noncompliance No sepsis at presentation. Patient with recurrent lower extremity cellulitis likely secondary to noncompliance with medications/diet and patient's functional disability. Admitting imaging: CXR with mild pulmonary edema. C-spine CT and head CT with no acute finding. XR Left lower extremity with no acute bony abnormality, left below-knee amputation noted. Right foot x-ray and right foot CT - suggestive of extensive osteomyelitis. No pathologic fracture noted. CT right lower extremity - suggestive of cellulitis. CT Left knee and BKA stump - suggestive of cellulitis. --Doxycycline 07/16 and cefepime 07/16 ---> ID evaluated 07/18, recs are iv cefe pime 2g q8h, linezolid 600 mg q12h EOT 07/30/2024, recommends amputation of RLE. Linezolid and duloxetine has severe interaction of serotonin syndrome, d/w ID 07/18, plan to decrease dose of duloxetine to half and c/w linezolid Podiatry evaluated, recs are RLE amputation vs palliative care. --Patient currently refuses amputation and does not believe he has osteomyelitis despite explaining in detail --Wound culture growing Klebsiella pneumoniae ESBL, Alcaligenes faecalis --Blood cultures negative to date -- Continue local wound care --Change IV cefepime to ertapenem Continue Zyvox Discussed with infectious disease on 07/27/2024: Recommends to complete antibiotic course on 07/30/2024 as previously planned. Believes antibiotics will not heal his infection. Recommends amputation if patient agrees Patient prefers to follow-up with his primary psychologist chief Dr. 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 He does not believe that his foot is infected despite explaining in detail Needs to follow-up with wound care on discharge as well Consulted palliative care to address goals of care Acute kidney injury on CKD III: Volume overload status held lisinopril, Aldactone, Torsemide Continue IV Lasix if patient tells Continue fluid restriction Creatinine 1.5 today Monitor renal function and avoid nephrotoxic agents as able Patient refused IV Lasix today Will consider transitioning to his oral diuretics as able Atrial fibrillation: Continue metoprolol Continue Coumadin for anticoagulation Monitor INR 1.9 today Patient refused warfarin today Acute on chronic heart failure with reduced ejection fraction: Recent echo with EF of 30 to 35%, BLE swelling noted, CXR with pulmonary edema at presentation. Likely secondary to medication noncompliance. Diuretics as above, continue with fluid restriction. Monitor I's and O's, monitor and replete electrolytes. Monitor volume status closely Refused IV Lasix today Adult failure to thrive: Medication noncompliance Inability to take care of the self Patient has had numerous hospitalizations in regards to failure to thrive at home Dietary consult, case management consult. PT/OT. Other chronic medical conditions: Continue with/resume home meds as and when able. T2DM: Continue insulin. Has been refusing dietary restrictions, insulin PVD: Status post left BKA amputation. Continue with home aspirin and Lipitor. Morbid obesity: BMI 46. Likely contributed to PVD and recurrent cellulitis. Counseling done. NINA on CPAP: Continue CPAP at bedtime. Cardiac defibrillator in situ: Noted Major depression disorder: Continue with duloxetine Lymphedema: Likely contributing to cellulitis. Follow-up with lymphedema clinic as an outpatient. Chronic pain syndrome: c/w oxy and lyrica DVT Px: Warfarin CODE STATUS Full code Admission and Anticipated Discharge Date Admission Date: July 15, 2024 Subjective Patient is seen and examined at bedside Refusing most care to manage his diabetes and infection Updated patient's daughter over the phone Discussed with palliative care today Denies any chest pain, dyspnea, nausea, vomiting, abdominal pain Noncompliant with diet, fluid restriction No specific complaints today Review of Systems Review of Systems: All systems reviewed & are unremarkable except as noted in Subjective Physical Exam Physical Exam: Physical Exam: Vitals signs as noted above General Appearance:Morbidly Obese, no apparent distress, ill-appearing Head: normocephalic, Atraumatic Eyes: normal inspection, EOMI Neck: supple, Trachea midline Respiratory/Chest: Normal breath sounds, CTA, No accessory muscle use Cardiovascular: Irregularly irregular, No murmur Abdomen/GI:Soft, Non tender, Bowel sounds present Extremities/Musculoskeletal:normal inspection, LE edema, lymphedema, Left BKA Neurologic/Psych:AAOX3, grossly no focal neurological deficits Skin: normal color, warm Results & Data Results & Data Vital Signs (Past 12 Hours) Vital Signs Temp Pulse Pulse Resp BP BP BP 07/27/24 14:57 36.3 C L 76 18 118/77 07/27/24 11:59 36.6 C 74 18 100/72 07/27/24 09:00 07/27/24 08:00 36.7 C 74 18 105/70 07/27/24 07:04 36.7 C 69 18 97/64 L Pulse Ox O2 Del Method 07/27/24 14:57 94 Room Air 07/27/24 11:59 97 Room Air 07/27/24 09:00 Room Air 07/27/24 08:00 96 Room Air 07/27/24 07:04 97 Room Air Laboratory Results Short CBC 07/27/24 Range/Units 15:14 WBC 6.15 (4.8-10.8) K/ul Hgb 11.7 L (14.0-18.0) g/dl Hct 36.8 L (42.0-52.0) % Plt Count 181 (130-400) K/uL BMP 07/27/24 15:14 Sodium 137 Potassium 3.8 Chloride 103 Carbon Dioxide 29 BUN 35 H Creatinine 1.56 H Glucose 203 H Calcium 8.8
--- NOTE | 2024-07-27 19:04 | Communication Note ---
Date of Service: July 27, 2024 Discussed with patient in detail. Patient prefers to be DNI DNR. Will change CODE STATUS as per patient's preference.
[2024-07-27] MEDS: LANTUS PER UNIT CHARGE SQ SCH (21:13)
[2024-07-28 07:13] LABS: BUN Creatinine Ratio 24.8 (10-20); Creatinine Clr Calc Pharmacy 90.4 ml/min; Potassium 3.9 mmol/L (3.5-5.1)
[2024-07-28 07:21] LABS: INR 1.8 (0.9-1.1); Prothrombin Time 18.2 Seconds (9.0-12.0)
[2024-07-28] MEDS: LANTUS PER UNIT CHARGE SQ SCH ×2 (09:19→20:16)
[2024-07-28] MEDS: LANTUS PER UNIT CHARGE SQ ONE (13:18)
--- NOTE | 2024-07-28 14:13 | Pharmacy Report ---
Pharmacy Glycemic Short Note 2 - Date of Service July 28, 2024 - Glycemic Short BSG Results (Last 24 hours): 07/27/24 07/27/24 07/27/24 15:14 16:32 21:02 Glucose 203 H POC Glucose 213 H 155 H 07/28/24 07/28/24 07/28/24 06:25 07:41 11:44 Glucose 143 H POC Glucose 127 H 183 H OUTPATIENT ANTIDIABETIC REGIMEN: * Lantus 12 units SQ BID * Novolog 10 units SQ AC * Januvia 50mg PO daily * HbA1c: 6.5% (05/25/24) ASSESSMENT: 07/28/24: * Patient received 44 units of insulin (20 units of basal and 24 units of prandial/correctional bolus) * Of note: patient is intermittently refusing insulin * Fasting blood glucose of 127 mg/dL this morning - will plan to continue ~20 units of basal or less based on scale this evening * Remains on ertapenem for treatment of RLE cellulitis 07/26/24: * Mr Lyle was admitted on 07/15/24 with cellulitis/possible osteo. * Pharmacy was consulted today to help with glycemic management. * Lantus dose will be increased this evening, as it appears that fasting BSGs wharton ve been above goal. * Novolog parameters have been adjusted to better match patient's home use, and also based on data from past admissions. * Pharmacy will continue to follow and adjust regimen as indicated. PLAN FOR INPATIENT GLYCEMIC CONTROL: * Hold outpatient oral diabetes medications * Basal insulin * Lantus 10 units x 1 this afternoon * Lantus 0-5-10 units SC HS * Reassess in AM * Bolus insulin * NovoLog per scale ACHS or Q6hrs while NPO * Goal Range: Low 110 mg/dL - High 140 mg/dL * Correction Factor: 30 mg/dL/unit * Nutritional / Prandial insulin per carb ratio of 1 unit per 7 grams CHO consumed
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
[2024-07-29 06:54] LABS: BUN Creatinine Ratio 22.1 (10-20); Calcium 9.2 mg/dl (8.6-10.3); Creatinine Clr Calc Pharmacy 88.4 ml/min; Potassium 4.5 mmol/L (3.5-5.1)
[2024-07-29 07:12] LABS: INR 1.6 (0.9-1.1); Prothrombin Time 16.5 Seconds (9.0-12.0)
--- NOTE | 2024-07-29 11:20 | Pharmacy Report ---
Pharmacy Glycemic Short Note 2 - Date of Service July 29, 2024 - Glycemic Short BSG Results (Last 24 hours): 07/28/24 07/28/24 07/28/24 11:44 16:31 20:01 Glucose POC Glucose 183 H 116 H 215 H 07/29/24 07/29/24 05:36 07:50 Glucose 135 H POC Glucose 131 H OUTPATIENT ANTIDIABETIC REGIMEN: * Lantus 12 units SQ BID * Novolog 10 units SQ AC * Januvia 50mg PO daily * HbA1c: 6.5% (05/25/24) ASSESSMENT: 07/29/24: * Mr Lyle received 65 units of insulin yesterday (20 of which were basal) and BSGs were closer to goal. * Morning Lantus dose moved to lunchtime, as pt has been more willing to take the dose at that time. * Pt still intermittently hyperglycemic throughout the day, but will hold off on tightening Novolog parameters at this time, to minimize the risk of hypoglycemia and reduce the likelihood of declined doses. * Other than some adjustments in timing, no other changes to regimen today. 07/28/24: * Patient received 44 units of insulin (20 units of basal and 24 units of prandial/correctional bolus) * Of note: patient is intermittently refusing insulin * Fasting blood glucose of 127 mg/dL this morning - will plan to continue ~20 units of basal or less based on scale this evening * Remains on ertapenem for treatment of RLE cellulitis 07/26/24: * Mr Lyle was admitted on 07/15/24 with cellulitis/possible osteo. * Pharmacy was consulted today to help with glycemic management. * Lantus dose will be increased this evening, as it appears that fasting BSGs have been above goal. * Novolog parameters have been adjusted to better match patient's home use, and also based on data from past admissions. * Pharmacy will continue to follow and adjust regimen as indicated. PLAN FOR INPATIENT GLYCEMIC CONTROL: * Hold outpatient oral diabetes medications * Basal insulin * Lantus 10 units SQ daily with lunch * Lantus 0-5-10 units SQ HS, based on BSG (see EMR for details) * Bolus insulin * NovoLog per scale ACHS or Q6hrs while NPO * Goal Range: Low 110 mg/dL - High 140 mg/dL * Correction Factor: 30 mg/dL/unit * Nutritional / Prandial insulin per carb ratio of 1 unit per 7 grams CHO consumed
[2024-07-29] MEDS: LANTUS PER UNIT CHARGE SC SCH (12:40)
--- NOTE | 2024-07-29 15:04 | XRay Report ---
KUB CLINICAL HISTORY: Abdominal pain. COMPARISON STUDY: KUB May 29, 2024. CT of the abdomen and pelvis May 30, 2024. FINDINGS: Prominent gas-filled loops of colon are noted without radiographic evidence for a bowel obs truction. There is a moderate to large amount of stool within the colon and rectum. No dilated small bowel loops are present. A subclavian pacer/AICD lead is partially imaged. IMPRESSION: 1. Moderate to large amount of stool within the colon and rectum. 2. No radiographic evidence for a bowel obstruction. ACT 112: Negative or not required by law. Electronically signed by: Devyn Flynn M.D. 07/29/2024 3:03 PM
[2024-07-29] MEDS ORDERED: bisacodyL 10 MG SUPP PR PRN (15:48)
--- NOTE | 2024-07-29 16:28 | Hospitalist Progress Note ---
Date of Service July 29, 2024 Assessment & Plan (1) Cellulitis of right leg: Plan 58-year-old man with PMH of HFrEF [EF 30 to 35%, TTE 2024] sp ICD, CAD, VT sp ablation, A-fib/DVT on Coumadin, HTN, HLD, pHTN,/OHS on BPAP, bronchial asthma, T2DM on insulin pump, hypothyroidism, CKD [baseline creatinine of 1.2-1.3], chronic anemia [baseline hemoglobin of 10], mood disorder, RLE osteomyelitis sp surgery, left foot osteomyelitis sp left BKA, morbid obesity who was recently admitted 05/24/2024 to 07/01/2024 for decompensated heart failure/LLE cellulitis and infected chronic right foot ulcer. Wound cultures were negative and patient completed cefepime and meropenem course. There was unsuccessful efforts for rehab/permanent placement at the time and patient was discharged home. Patient was admitted at [facility] July 02 to day after [facility] discharge as patient was found by home health nurse living in deplorable condition. Patient was discharged from the hospital despite hospice social worker notifying hospital providers that patient was not safe going home. 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 BLE cellulitis Underlying RLE osteomyelitis Medical noncompliance No sepsis at presentation. Patient with recurrent lower extremity cellulitis likely secondary to noncompliance with medications/diet and patient's functional disability. Admitting imaging: CXR with mild pulmonary edema. C-spine CT and head CT with no acute finding. XR Left lower extremity with no acute bony abnormality, left below-knee amputation noted. Right foot x-ray and right foot CT - suggestive of extensive osteomyelitis. No pathologic fracture noted. CT right lower extremity - suggestive of cellulitis. CT Left knee and BKA stump - suggestive of cellulitis. --Doxycycline 07/16 and cefepime 07/16 ---> ID evaluated 07/18, recs are iv cefe pime 2g q8h, linezolid 600 mg q12h EOT 07/30/2024, recommends amputation of RLE. Linezolid and duloxetine has severe interaction of serotonin syndrome, d/w ID 07/18, plan to decrease dose of duloxetine to half and c/w linezolid Podiatry evaluated, recs are RLE amputation vs palliative care. --Patient currently refuses amputation and does not believe he has osteomyelitis despite explaining in detail --Wound culture growing Klebsiella pneumoniae ESBL, Alcaligenes faecalis --Blood cultures negative to date -- Continue local wound care --Change IV cefepime to ertapenem Continue Zyvox--has been refusing on most occasions Discussed with infectious disease on 07/27/2024: Recommends to complete antibiotic course on 07/30/2024 as previously planned. Believes antibiotics will not heal his infection. 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 He does not believe that his foot is infected despite explaining in detail Needs to follow-up with wound care on discharge as well Consulted palliative care to address goals of care Poor prognosis due to noncompliance Will complete antibiotic course tomorrow Case management to help with discharge planning Acute kidney injury on CKD III: Volume overload status Continue to hold lisinopril for now Creatinine 1.3 today Monitor renal function and avoid nephrotoxic agents as able Constipation Started on bowel regimen Minimize narcotics as able Atrial fibrillation: Continue metoprolol Continue Coumadin for anticoagulation Monitor INR 1.6 today Patient has been refusing warfarin intermittently Will adjust Coumadin dose tomorrow if INR remains subtherapeutic Acute on chronic heart failure with reduced ejection fraction: Recent echo with EF of 30 to 35%, BLE swelling noted, CXR with pulmonary edema at presentation. Likely secondary to medication noncompliance. Continue fluid restriction Monitor I's and O's, monitor and replete electrolytes. Monitor volume status closely Transition IV Lasix to home oral diuretics Adult failure to thrive: Medication noncompliance Inability to take care of the self Patient has had numerous hospitalizations in regards to failure to thrive at home Dietary consult, case management consult. PT/OT Office of aging involved Other chronic medical conditions: Continue with/resume home meds as and when able. T2DM: Continue insulin. Has been refusing dietary restrictions, insulin PVD: Status post left BKA amputation. Continue with home aspirin and Lipitor. Morbid obesity: BMI 46. Likely contributed to PVD and recurrent cellulitis. Counseling done. NINA on CPAP: Continue CPAP at bedtime. Cardiac defibrillator in situ: Noted Major depression disorder: Continue with duloxetine Lymphedema: Likely contributing to cellulitis. Follow-up with lymphedema clinic as an outpatient. Chronic pain syndrome: c/w oxy and lyrica DVT Px: Warfarin Subtherapeutic INR due to noncompliance CODE STATUS Full code Admission and Anticipated Discharge Date Admission Date: July 15, 2024 Subjective Patient is seen and examined at bedside Reports having nausea and abdominal discomfort Denies any chest pain, dyspnea, nausea, vomiting, abdominal pain No other complaints today Review of Systems Review of Systems: All systems reviewed & are unremarkable except as noted in Subjective Physical Exam Physical Exam: Physical Exam: Vitals signs as noted above General Appearance:Morbidly Obese, no apparent distress, ill-appearing Head: normocephalic, Atraumatic Eyes: normal inspection, EOMI Neck: supple, Trachea midline Respiratory/Chest: Normal breath sounds, CTA, No accessory muscle use Cardiovascular: Irregularly irregular, No murmur Abdomen/GI:Soft, Non tender, Bowel sounds present Extremities/Musculoskeletal:normal inspection, LE edema, lymphedema, Left BKA Neurologic/Psych:AAOX3, grossly no focal neurological deficits Skin: normal color, warm Results & Data Results & Data Vital Signs (Past 12 Hours) Vital Signs Temp Pulse Resp BP Pulse Ox O2 Del Method 07/29/24 15:04 36.8 C 85 18 116/71 97 Room Air 07/29/24 07:44 36.8 C 59 L 16 124/77 95 Room Air Laboratory Results [facility] 07/29/24 05:36 Sodium 141 Potassium 4.5 Chloride 109 H Carbon Dioxide 27 BUN 30 H Creatinine 1.36 Glucose 135 H Calcium 9.2
[2024-07-29] MEDS: POLYETHYLENE (MIRALAX) 17 GM PACK PO SCH (17:38)
[2024-07-29] MEDS: DOCUSATE SODIUM 100 MG CAP PO SCH (17:38)
[2024-07-30 06:35] LABS: BUN Creatinine Ratio 24.2 (10-20); Calcium 9.6 mg/dl (8.6-10.3); Potassium 4.3 mmol/L (3.5-5.1)
[2024-07-30 06:39] LABS: INR 1.5 (0.9-1.1); Prothrombin Time 15.3 Seconds (9.0-12.0)
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
[2024-07-30] MEDS: WARFARIN SOD 5 MG TAB PO SCH (16:46)
[2024-07-31] MEDS: oxyCODONE HCL IR 5 MG TAB (IMMEDIATE RELEASE) PO STA (05:40)
[2024-07-31 09:29] LABS: BUN Creatinine Ratio 24.1 (10-20); Calcium 9.3 mg/dl (8.6-10.3); Creatinine Clr Calc Pharmacy 85.3 ml/min; Potassium 4.5 mmol/L (3.5-5.1)
[2024-07-31 09:43] LABS: INR 1.5 (0.9-1.1); Prothrombin Time 16.1 Seconds (9.0-12.0)
[2024-07-31] MEDS: NYSTATIN/TRIAMCIN OINT 30 GM TUBE EXT SCH (13:32)
[2024-07-31] MEDS: NYSTATIN/TRIAMCIN CR 15 GM TUBE EXT SCH (14:59)
--- NOTE | 2024-07-31 15:14 | Hospitalist Progress Note ---
Date of Service July 31, 2024 Assessment & Plan (1) Cellulitis of right leg: Plan 58-year-old man with PMH of HFrEF [EF 30 to 35%, TTE 2024] sp ICD, CAD, VT sp ablation, A-fib/DVT on Coumadin, HTN, HLD, pHTN,/OHS on BPAP, bronchial asthma, T2DM on insulin pump, hypothyroidism, CKD [baseline creatinine of 1.2-1.3], chronic anemia [baseline hemoglobin of 10], mood disorder, RLE osteomyelitis sp surgery, left foot osteomyelitis sp left BKA, morbid obesity who was recently admitted 05/24/2024 to 07/01/2024 for decompensated heart failure/LLE cellulitis and infected chronic right foot ulcer. Wound cultures were negative and patient completed cefepime and meropenem course. There was unsuccessful efforts for rehab/permanent placement at the time and patient was discharged home. Patient was admitted at [facility] July 02 to day after [facility] discharge as patient was found by home health nurse living in deplorable condition. Patient was discharged from the hospital despite social services counselor notifying hospital providers that patient was not safe going home. 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 BLE cellulitis Underlying RLE osteomyelitis Medical noncompliance No sepsis at presentation. Patient with recurrent lower extremity cellulitis likely secondary to noncompliance with medications/diet and patient's functional disability. Admitting imaging: CXR with mild pulmonary edema. C-spine CT and head CT with no acute finding. XR Left lower extremity with no acute bony abnormality, left below-knee amputation noted. Right foot x-ray and right foot CT - suggestive of extensive osteomyelitis. No pathologic fracture noted. CT right lower extremity - suggestive of cellulitis. CT Left knee and BKA stump - suggestive of cellulitis. --Doxycycline 07/16 and cefepime 07/16 ---> ID evaluated 07/18, recs are iv cefe pime 2g q8h, linezolid 600 mg q12h EOT 07/30/2024, recommends amputation of RLE. Linezolid and duloxetine has severe interaction of serotonin syndrome, d/w ID 07/18, plan to decrease dose of duloxetine to half and c/w linezolid Podiatry evaluated, recs are RLE amputation vs palliative care. --Patient currently refuses amputation and does not believe he has osteomyelitis despite explaining in detail --Wound culture growing Klebsiella pneumoniae ESBL, Alcaligenes faecalis --Blood cultures negative -- Continue local wound care --Change IV cefepime to ertapenem--complete antibiotic course Continue Zyvox--completed antibiotic course Discussed with infectious disease on 07/27/2024: Recommends to complete antibiotic course on 07/30/2024 as previously planned. Believes antibiotics will not heal his infection. 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 He does not believe that his foot is infected despite explaining in detail Needs to follow-up with wound care on discharge as well Consulted palliative care to address goals of care Poor prognosis due to noncompliance Case management to help with discharge planning Office of aging is involved Acute kidney injury on CKD III: Volume overload status Creatinine 1.4 today Monitor renal function and avoid nephrotoxic agents as able Plan to resume lisinopril tomorrow if renal function stable Constipation Continue bowel regimen Minimize narcotics as able Resolved Atrial fibrillation: Subtherapeutic INR due to noncompliance Continue metoprolol Continue Coumadin for anticoagulation Monitor INR 1.5 today Increased Coumadin to 5 mg today Monitor INR and adjust Coumadin dose tomorrow if needed Acute on chronic heart failure with reduced ejection fraction: Recent echo with EF of 30 to 35%, BLE swelling noted, CXR with pulmonary edema at presentation. Likely secondary to medication noncompliance. Continue fluid restriction Monitor I's and O's, monitor and replete electrolytes. Monitor volume status closely Plan to resume lisinopril as able Transitioned IV Lasix to home oral diuretics Adult failure to thrive: Medication noncompliance Inability to take care of the self Patient has had numerous hospitalizations in regards to failure to thrive at home Dietary consult, case management consult. PT/OT Office of aging involved Other chronic medical conditions: Continue with/resume home meds as and when able. T2DM: Continue insulin. Has been refusing dietary restrictions, insulin PVD: Status post left BKA amputation. Continue with home aspirin and Lipitor. Morbid obesity: BMI 46. Likely contributed to PVD and recurrent cellulitis. Counseling done. NINA on CPAP: Continue CPAP at bedtime. Cardiac defibrillator in situ: Noted Major depression disorder: Continue with duloxetine Lymphedema: Likely contributing to cellulitis. Follow-up with lymphedema clinic as an outpatient. Chronic pain syndrome: c/w oxy and lyrica DVT Px: Warfarin Subtherapeutic INR due to noncompliance CODE STATUS Full code Admission and Anticipated Discharge Date Admission Date: July 15, 2024 Subjective Patient is seen and examined at bedside No new complaints today Abdominal pain, nausea resolved Denies any chest pain, dyspnea, nausea, vomiting, abdominal pain Review of Systems Review of Systems: All systems reviewed & are unremarkable except as noted in Subjective Physical Exam Physical Exam: Physical Exam: Vitals signs as noted above General Appearance:Morbidly Obese, no apparent distress, ill-appearing Head: normocephalic, Atraumatic Eyes: normal inspection, EOMI Neck: supple, Trachea midline Respiratory/Chest: Normal breath sounds, CTA, No accessory muscle use Cardiovascular: Irregularly irregular, No murmur Abdomen/GI:Soft, Non tender, Bowel sounds present Extremities/Musculoskeletal:normal inspection, LE edema, lymphedema, Left BKA Neurologic/Psych:AAOX3, grossly no focal neurological deficits Skin: normal color, warm Results & Data Results & Data Vital Signs (Past 12 Hours) Vital Signs Temp Pulse Resp BP Pulse Ox O2 Del Method 07/31/24 14:58 36.7 C 73 18 129/78 95 Room Air 07/31/24 07:41 36.9 C 72 18 136/75 96 Room Air Laboratory Results [facility] 07/31/24 08:54 Sodium 138 Potassium 4.5 Chloride 103 Carbon Dioxide 29 BUN 34 H Creatinine 1.41 H Glucose 202 H Calcium 9.3
[2024-08-01] MEDS: oxyCODONE HCL IR 5 MG TAB (IMMEDIATE RELEASE) PO PRN (00:38)
[2024-08-01 08:39] LABS: INR 1.9 (0.9-1.1); Prothrombin Time 19.5 Seconds (9.0-12.0)
--- NOTE | 2024-08-01 09:38 | Pharmacy Report ---
Pharmacy Glycemic Short Note 2 - Date of Service August 01, 2024 - Glycemic Short BSG Results (Last 24 hours): 07/31/24 07/31/24 07/31/24 11:38 16:45 20:49 POC Glucose 137 H 104 H 164 H 08/01/24 07:49 POC Glucose 107 H OUTPATIENT ANTIDIABETIC REGIMEN: * Lantus 12 units SQ BID * Novolog 10 units SQ AC * Januvia 50mg PO daily * HbA1c: 6.5% (05/25/24) ASSESSMENT: 08/01/24: * Mr Lyle received 38 units of insulin yesterday (20 of which were basal), BSGs at goal. * No changes in insulin regimen at this time. * ID recommends amputation if patient agrees, patient currently denies need. 07/29/24: * Mr Lyle received 65 units of insulin yesterday (20 of which were basal) and BSGs were closer to goal. * Morning Lantus dose moved to lunchtime, as pt has been more willing to take the dose at that time. * Pt still intermittently hyperglycemic throughout the day, but will hold off on tightening Novolog parameters at this time, to minimize the risk of hypoglycemia and reduce the likelihood of declined doses. * Other than some adjustments in timing, no other changes to regimen today. 07/28/24: * Patient received 44 units of insulin (20 units of basal and 24 units of prandial/correctional bolus) * Of note: patient is intermittently refusing insulin * Fasting blood glucose of 127 mg/dL this morning - will plan to continue ~20 units of basal or less based on scale this evening * Remains on ertapenem for treatment of RLE cellulitis 07/26/24: * Mr Lyle was admitted on 07/15/24 with cellulitis/possible osteo. * Pharmacy was consulted today to help with glycemic management. * Lantus dose will be increased this evening, as it appears that fasting BSGs have been above goal. * Novolog parameters have been adjusted to better match patient's home use, and also based on data from past admissions. * Pharmacy will continue to follow and adjust regimen as indicated. PLAN FOR INPATIENT GLYCEMIC CONTROL: * Hold outpatient oral diabetes medications * Basal insulin * Lantus 10 units SQ daily with lunch * Lantus 0-5-10 units SQ HS, based on BSG (see EMR for details) * Bolus insulin * NovoLog per scale ACHS or Q6hrs while NPO * Goal Range: Low 110 mg/dL - High 140 mg/dL * Correction Factor: 30 mg/dL/unit * Nutritional / Prandial insulin per carb ratio of 1 unit per 7 grams CHO consumed
--- NOTE | 2024-08-01 14:03 | Podiatry Progress Note ---
Date of Service August 01, 2024 Assessment & Plan (1) Osteomyelitis of ankle and foot: (2) History of below-knee amputation of left lower extremity: (3) Diabetic ulcer of right foot associated with diabetes mellitus due to underlying condition, with necrosis of bone: (4) Acute osteomyelitis of right calcaneus: Plan Met with patient again today to reevaluate the right foot wound. Dressing is changed and redressed with Aquacel Ag and a dry sterile dressing. Wound is slightly decreased in size since last seen however I am no more optimistic that this wound will heal given significant purulent drainage from the level of bone and joint space in the plantar foot unknown underlying osteomyelitis. We again discussed treatment options long-term including maintenance care for the wound with regular dressing changes versus limb amputation. Patient is aware that wound is not likely to heal and he is at high risk for development of sepsis with underlying ongoing osteomyelitis large open wound to the plantar right foot. Patient does not wish to discuss amputation any further. With this in mind I recommend patient be more agreeable to discussing options with palliative care. He voices understanding. Podiatry will sign off at this time. Please reconsult as needed. Thank you for consulting podiatry to aid in the care of this patient. Admission and Anticipated Discharge Date Admission Date: July 15, 2024 Subjective Patient seen resting comfortably in hospital bed about to eat lunch. He is much more awake and alert today than on visits over the past month. Sitting up in bed watching [employer]. We did revisit the condition of his foot and my recommendations regarding amputation. Patient is aware that I do not bel ieve his foot wound will go on to heal and will remain a nidus for infection and less removed. Patient reports understanding the risk for development of more severe infection sepsis and risk of . With this said he does not wish to consider amputation of the right foot/lower extremity at this time. Review of Systems Review of Systems: Obese 58-year-old male with history of left amputation. Chronic right foot ulcer with osteomyelitis. Denies nausea, vomiting, fever, chills, shortness of breath, chest pain. Reports weakness, malaise, neck pain. All other systems were reviewed and negative unless stated in HPI. Physical Exam Physical Exam: Const: Obese, left limb amputation. Patient is somewhat lethargic and drifts in and out of sleep during our interview today. CV: Extremities: No cyanosis Capillary refill time is less than 3 seconds all digits of the right foot. Posterior tibial pulse lightly palpable right foot. Skin: Chronic venous stasis changes to the right lower leg with open wound. Neuro: Loss of protective sensation to the right foot Cognition: Orientation is intact to person, place and time. Focused lower extremity musculoskeletal exam: Leg: No pain with compression of the calf muscle. Right ankle: Edematous Right foot: Large ulceration of the plantar aspect of the right foot. Slight decrease in wound dimensions on the periphery with new epithelial tissue forming. Wound probes to the level of bone at the plantar calcaneus at the calcaneocuboid joint. Wound probes 3 cm along the lateral wall of the calcaneus. Wound bed is mixed granular, fibrotic, fascial, slough and bone tissue. Again noting significant purulent drainage to the dressing and wound bed with notable malodor. On compression of the foot and probing of the surrounding soft tissue structures are nonambulatory express any additional drainage. Results & Data Results & Data Vital Signs (Past 12 Hours) Vital Signs Temp Pulse Pulse Resp BP BP Pulse Ox 08/01/24 11:49 36.5 C 93 H 18 123/74 97 08/01/24 08:36 36.4 C L 71 18 120/80 95 08/01/24 07:15 O2 Del Method 08/01/24 11:49 Room Air 08/01/24 08:36 Room Air 08/01/24 07:15 Room Air Coding Level of Care Code 30861 SUB INP/OBS CARE 2/35MIN Diagnoses Osteomyelitis of ankle and foot M86.9 History of below-knee amputation of left lower extremity Z89.512 Diabetic ulcer of other part of right foot associated with diabetes mellitus due to underlying condition, with necrosis of bone E08.621; L97.514 Diabetic foot ulcer location: other Acute osteomyelitis of right calcaneus M86.171 (3) Diabetic ulcer of right foot associated with diabetes mellitus due to underlying condition, with necrosis of bone Diabetic foot ulcer location: other Qualified Code(s): E08.621 - Diabetes mellitus due to underlying condition with foot ulcer; L97.514 - Non-pressure chronic ulcer of other part of right foot with necrosis of bone
--- NOTE | 2024-08-01 15:48 | Hospitalist Progress Note ---
Date of Service August 01, 2024 Assessment & Plan (1) Cellulitis of right leg: Plan 58-year-old man with PMH of HFrEF [EF 30 to 35%, TTE 2024] sp ICD, CAD, VT sp ablation, A-fib/DVT on Coumadin, HTN, HLD, pHTN,/OHS on BPAP, bronchial asthma, T2DM on insulin pump, hypothyroidism, CKD [baseline creatinine of 1.2-1.3], chronic anemia [baseline hemoglobin of 10], mood disorder, RLE osteomyelitis sp surgery, left foot osteomyelitis sp left BKA, morbid obesity who was recently admitted 05/24/2024 to 07/01/2024 for decompensated heart failure/LLE cellulitis and infected chronic right foot ulcer. Wound cultures were negative and patient completed cefepime and meropenem course. There was unsuccessful efforts for rehab/permanent placement at the time and patient was discharged home. Patient was admitted at [facility] July 02 to day after [facility] discharge as patient was found by home health nurse living in deplorable condition. Patient was discharged from the hospital despite social work nurse notifying hospital providers that patient was not safe going home. 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 BLE cellulitis Underlying RLE osteomyelitis Medical noncompliance No sepsis at presentation. Patient with recurrent lower extremity cellulitis likely secondary to noncompliance with medications/diet and patient's functional disability. Admitting imaging: CXR with mild pulmonary edema. C-spine CT and head CT with no acute finding. XR Left lower extremity with no acute bony abnormality, left below-knee amputation noted. Right foot x-ray and right foot CT - suggestive of extensive osteomyelitis. No pathologic fracture noted. CT right lower extremity - suggestive of cellulitis. CT Left knee and BKA stump - suggestive of cellulitis. --Doxycycline 07/16 and cefepime 07/16 ---> ID evaluated 07/18, recs are iv cefe pime 2g q8h, linezolid 600 mg q12h EOT 07/30/2024, recommends amputation of RLE. Linezolid and duloxetine has severe interaction of serotonin syndrome, d/w ID 07/18, plan to decrease dose of duloxetine to half and c/w linezolid Podiatry evaluated, recs are RLE amputation vs palliative care. --Patient currently refuses amputation and does not believe he has osteomyelitis despite explaining in detail --Wound culture growing Klebsiella pneumoniae ESBL, Alcaligenes faecalis --Blood cultures negative -- Continue local wound care --Change IV cefepime to ertapenem--completed antibiotic course Continue Zyvox--completed antibiotic course Discussed with infectious disease on 07/27/2024: Recommends to complete antibiotic course on 07/30/2024 as previously planned. Believes antibiotics will not heal his infection. 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 He does not believe that his foot is infected despite explaining in detail Needs to follow-up with wound care on discharge as well Consulted palliative care to address goals of care Poor prognosis due to noncompliance Case management to help with discharge planning Office of aging is involved Podiatry reexamined the patient today and discussed that right lower extremity wound would not heal likely and would need amputation. Patient not interested in amputation currently. Placement will be difficult given patient's disability and inability to care for self Acute kidney injury on CKD III: Volume overload status Creatinine 1.4 Monitor renal function and avoid nephrotoxic agents as able Plan to resume lisinopril tomorrow if renal function stable Constipation Continue bowel regimen Minimize narcotics as able Resolved Atrial fibrillation: Subtherapeutic INR due to noncompliance Continue metoprolol Continue Coumadin for anticoagulation Monitor INR 1.9 today Increased Coumadin to 5 mg today Monitor INR and adjust Coumadin dose tomorrow if needed Acute on chronic heart failure with reduced ejection fraction: Recent echo with EF of 30 to 35%, BLE swelling noted, CXR with pulmonary edema a t presentation. Likely secondary to medication noncompliance. Continue fluid restriction Monitor I's and O's, monitor and replete electrolytes. Monitor volume status closely Plan to resume lisinopril as able Transitioned IV Lasix to home oral diuretics Adult failure to thrive: Medication noncompliance Inability to take care of the self Patient has had numerous hospitalizations in regards to failure to thrive at home Dietary consult, case management consult. PT/OT Office of aging involved Other chronic medical conditions: Continue with/resume home meds as and when able. T2DM: Continue insulin. Has been refusing dietary restrictions, insulin. Prefers to be placed on regular diet. PVD: Status post left BKA amputation. Continue with home aspirin and Lipitor. Morbid obesity: BMI 46. Likely contributed to PVD and recurrent cellulitis. Counseling done. NINA on CPAP: Continue CPAP at bedtime. Cardiac defibrillator in situ: Noted Major depression disorder: Continue with duloxetine Lymphedema: Likely contributing to cellulitis. Follow-up with lymphedema clinic as an outpatient. Chronic pain syndrome: c/w oxy and lyrica DVT Px: Warfarin Subtherapeutic INR due to noncompliance CODE STATUS Full code Admission and Anticipated Discharge Date Admission Date: July 15, 2024 Subjective Patient is seen and examined at bedside No new complaints today Abdominal pain, nausea resolved Denies any chest pain, dyspnea, nausea, vomiting, abdominal pain Review of Systems Review of Systems: All systems reviewed & are unremarkable except as noted in Subjective Physical Exam Physical Exam: Physical Exam: Vitals signs as noted above General Appearance:Morbidly Obese, no apparent distress, ill-appearing Head: normocephalic, Atraumatic Eyes: normal inspection, EOMI Neck: supple, Trachea midline Respiratory/Chest: Normal breath sounds, CTA, No accessory muscle use Cardiovascular: Irregularly irregular, No murmur Abdomen/GI:Soft, Non tender, Bowel sounds present Extremities/Musculoskeletal:normal inspection, LE edema, lymphedema, Left BKA Neurologic/Psych:AAOX3, grossly no focal neurological deficits Skin: normal color, warm Results & Data Results & Data Vital Signs (Past 12 Hours) Vital Signs Temp Pulse Pulse Resp BP BP Pulse Ox 08/01/24 14:46 36.5 C 74 18 120/80 97 08/01/24 11:49 36.5 C 93 H 18 123/74 97 08/01/24 08:36 36.4 C L 71 18 120/80 95 08/01/24 07:15 O2 Del Method 08/01/24 14:46 Room Air 08/01/24 11:49 Room Air 08/01/24 08:36 Room Air 08/01/24 07:15 Room Air
[2024-08-01] MEDS: WARFARIN SOD 4 MG TAB PO SCH (16:06)
--- NOTE | 2024-08-02 00:56 | Palliative Family Discussion ---
Date of Service August 01, 2024 Patient Directed Conference Time of Meetin:30 - 10:00 Participants: PriyaSadaf Fu AGACNP Patient participation: yes Patient Support System: none Other Healthcare Provider Participation: None Meeting Location: bedside Advanced Directive available: no If yes, descriptors: The patient's surrogate medical decision maker participated: pt is decisional Legally authorized health care proxy: n/a Other surrogate: n/a A family meeting was held for STANISLAW Hector ORTIZ Bhatia. This meeting was necessary for determining the appropriate course of treatment. Topics of Discussion Topics of Discussion: 1. quality of life 2. goals of care Other Content of Meetin. Opportunity given for participants to speak and ask questions. 2. Participants were assured of attention to patient comfort. 3. Reassurance provided. 4. Support was provided for informed, good-samira decisions. 5. Emotions expressed by family were acknowledged and addressed. 6. Follow-up Outpatient: 7. Plan of Care: DNR/DNI, continue all other life prolonging therapies Met with pt at bedside. Introduced Palliative Medicine and explained our role in advanced care planning, symptom management and navigation through the progression of life limiting disease. Patient and/or family were receptive to palliative services for goals of care discussions. Reviewed we are different from hospice, a home health nurse visiting service. Patient currently exhibits decisional capacity based on the ability to convey understanding of personal PMHx, current medical condition, treatment options nor the risks / benefits of those options, and the ability to make decisions based on such knowledge. Hospital does not have written documentation of patient wishes concerning his chosen proxy for medical decisions. Pt does not require a proxy for medical decisions. Pt shared adequate knowledge of his medical history, HPI and admission course, however he shared that he does not agree with the doctors assessments nor diagnosis. He shared that he is confident that he does not have an infection and that he previously had an abscess removed from his foot at which time amputation was recommended but her refused because it was unnecessary. He shared that despite his mobility issues, he continues to have a very high quality of his time. He reinforced his desire to be DNR/DNI, and confirms that he would like to be discharged to home with HHC and PT//OT to rebuild strength and optimize his independence. He shared that ideally he would like live in healthcare financial analyst to help him when he needs it, but could not clarify what he might need other than, "so someone is there if I need help, so I don't have to call EMS". Pt does not have any identifiable palliative needs at this time, but may require additional resources at home (VNA/DME), will defer that to CM with discharge planning. We will sign off on this patient as goals of care are clearly established for DNR/DNI but continue all other life prolonging therapies Thank you for including Palliative Care in the management of this patient. Please call with any questions or concerns regarding this consultation. Time Involved in Meeting: I spent 50 minutes overall addressing this case: 5 in medical data review/discussion with referring provider(s) and/or preparation for the visit 35 in direct interaction with the patient 30 Advance Care Planning/Goals of Care discussions as detailed above in note (must be >16min) 5 in subsequent review and synthesis of assessment and plan 5 in communicating with other providers regarding the patient's case: []
[2024-08-02 07:37] LABS: INR 2.4 (0.9-1.1); Prothrombin Time 23.9 Seconds (9.0-12.0)
--- NOTE | 2024-08-02 16:27 | Hospitalist Progress Note ---
Date of Service August 02, 2024 Assessment & Plan (1) Cellulitis of right leg: Plan 58-year-old man with PMH of HFrEF [EF 30 to 35%, TTE 2024] sp ICD, CAD, VT sp ablation, A-fib/DVT on Coumadin, HTN, HLD, pHTN,/OHS on BPAP, bronchial asthma, T2DM on insulin pump, hypothyroidism, CKD [baseline creatinine of 1.2-1.3], chronic anemia [baseline hemoglobin of 10], mood disorder, RLE osteomyelitis sp surgery, left foot osteomyelitis sp left BKA, morbid obesity who was recently admitted 05/24/2024 to 07/01/2024 for decompensated heart failure/LLE cellulitis and infected chronic right foot ulcer. Wound cultures were negative and patient completed cefepime and meropenem course. There was unsuccessful efforts for rehab/permanent placement at the time and patient was discharged home. Patient was admitted at [facility] July 02 to day after [facility] discharge as patient was found by home health nurse living in deplorable condition. Patient was discharged from the hospital despite social worker clinical notifying hospital providers that patient was not safe going home. Per patient's home health nursing reports, patient has trouble getting food/patient confused about medication/patient worried about bilateral painful leg swelling with intermittent bloody drainage/patient fell off of his chair and had to call [employer] twice to get him up/patient incapable of transfers and is with bowel incontinence.Patient reports having sore throat/myalgia/jay sea/loose stools for last 2 to 3 days [employer]. 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 BLE cellulitis Underlying RLE osteomyelitis Medical noncompliance No sepsis at presentation. Patient with recurrent lower extremity cellulitis likely secondary to noncompliance with medications/diet and patient's functional disability. Admitting imaging: CXR with mild pulmonary edema. C-spine CT and head CT with no acute finding. XR Left lower extremity with no acute bony abnormality, left below-knee amputation noted. Right foot x-ray and right foot CT - suggestive of extensive osteomyelitis. No pathologic fracture noted. CT right lower extremity - suggestive of cellulitis. CT Left knee and BKA stump - suggestive of cellulitis. --Doxycycline 07/16 and cefepime 07/16 ---> ID evaluated 07/18, recs are iv cefe pime 2g q8h, linezolid 600 mg q12h EOT 07/30/2024, recommends amputation of RLE. Linezolid and duloxetine has severe interaction of serotonin syndrome, d/w ID 07/18, plan to decrease dose of duloxetine to half and c/w linezolid Podiatry evaluated, recs are RLE amputation vs palliative care. --Patient currently refuses amputation and does not believe he has osteomyelitis despite explaining in detail --Wound culture growing Klebsiella pneumoniae ESBL, Alcaligenes faecalis --Blood cultures negative -- Continue local wound care --Change IV cefepime to ertapenem--completed antibiotic course Continue Zyvox--completed antibiotic course Discussed with infectious disease on 07/27/2024: Recommends to complete antibiotic course on 07/30/2024 as previously planned. Believes antibiotics will not heal his infection. Recommends amputation if patient agrees Patient prefers to follow-up with his primary administrative project coordinator Dr. 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 He does not believe that his foot is infected despite explaining in detail Needs to follow-up with wound care on discharge as well Consulted palliative care to address goals of care Poor prognosis due to noncompliance Case management to help with discharge planning Office of aging is involved Podiatry reexamined the patient today and discussed that right lower extremity wound would not heal likely and would need amputation. Patient not interested in amputation currently. Placement will be difficult given patient's disability and inability to care for self Medically stable and symptomatically much better today Acute kidney injury on CKD III: Volume overload status Creatinine 1.4 Monitor renal function and avoid nephrotoxic agents as able Plan to resume lisinopril tomorrow if renal function stable Blood pressure remains on the lower side and will not restart lisinopril today Constipation Continue bowel regimen Minimize narcotics as able Resolved Atrial fibrillation: Subtherapeutic INR due to noncompliance Continue metoprolol Continue Coumadin for anticoagulation Monitor INR 1.9 today Increased Coumadin to 5 mg today Monitor INR and adjust Coumadin dose tomorrow if needed INR is 2.4 today Acute on chronic heart failure with reduced ejection fraction: Recent echo with EF of 30 to 35%, BLE swelling noted, CXR with pulmonary edema at presentation. Likely secondary to medication noncompliance. Continue fluid restriction Monitor I's and O's, monitor and replete electrolytes. Monitor volume status closely Plan to resume lisinopril as able Transitioned IV Lasix to home oral diuretics Adult failure to thrive: Medication noncompliance Inability to take care of the self Patient has had numerous hospitalizations in regards to failure to thrive at home Dietary consult, case management consult. PT/OT Office of aging involved Other chronic medical conditions: Continue with/resume home meds as and when able. T2DM: Continue insulin. Has been refusing dietary restrictions, insulin. Prefers to be placed on regular diet. PVD: Status post left BKA amputation. Continue with home aspirin and Lipitor. Morbid obesity: BMI 46. Likely contributed to PVD and recurrent cellulitis. Counseling done. NINA on CPAP: Continue CPAP at bedtime. Cardiac defibrillator in situ: Noted Major depression disorder: Continue with duloxetine Lymphedema: Likely contributing to cellulitis. Follow-up with lymphedema clinic as an outpatient. Chronic pain syndrome: c/w oxy and lyrica DVT Px: Warfarin Subtherapeutic INR due to noncompliance CODE STATUS Full code Admission and Anticipated Discharge Date Admission Date: July 15, 2024 Subjective 08/02/2024 The patient was seen and examined in medical floor He has been feeling much better today and wants to have real food not the cardiac diet Denies any significant symptoms Review of Systems Review of Systems: All systems reviewed and are unremarkable except as noted below Physical Exam Physical Exam: Lying in bed without any acute distress Constitutional: well developed, well nourished, + ill appearing and + morbidly obese Eyes: PERRL, conjunctivae normal, anicteric sclerae ENMT: external ear and nose normal, oropharynx normal Neck: trachea midline, no thyromegaly Respiratory: no respiratory distress Auscultation: lungs clear to auscultation bilaterally Cardiovascular: Rate/Rhythm: regular rate and regular rhythm; not tachycardic Extremities: + edema ( bilateral leg edema with lymphedema and cellulitis involving right leg) Gastrointestinal (Abdomen): Inspection/Auscultation: normal bowel sounds; abdomen not distended Percussion/Palpation: abdomen soft; abdomen nontender Neurologic: normal touch/pain/proprioception and moves all extremities; no focal motor deficits Lymphatic: no cervical or axillary lymphadenopathy Results & Data Results & Data Vital Signs (Past 12 Hours) Vital Signs Temp Pulse Resp BP Pulse Ox O2 Del Method 08/02/24 07:15 Room Air 08/02/24 07:05 36.7 C 69 16 98/63 L 95 Room Air Medications Administered Current Inpatient Medications Acetaminophen (Acetaminophen 500 Mg Tab) 500 mg PO Q6H PRN PRN Reason: fever/pain Stop: 08/14/24 21:36 Last Admin: 07/31/24 02:54 Dose: 500 mg Aspirin (Aspirin 81 Mg Ectab) 81 mg PO DAILY MATT Stop: 08/15/24 08:59 Last Admin: 08/02/24 07:11 Dose: 81 mg Atorvastatin Calcium (Atorvastatin 40 Mg Tab) 80 mg PO DAILY MATT Stop: 08/15/24 08:59 Last Admin: 08/02/24 07:11 Dose: 80 mg Bisacodyl (Bisacodyl 10 Mg Supp) 10 mg MO DAILY PRN PRN Reason: Constipation Stop: 08/28/24 15:47 Dextrose (Dextrose 50% 50 Ml Syringe) 25 - 50 ml IV UD PRN; Protocol PRN Reason: Hypoglycemia Protocol Stop: 08/14/24 23:39 Docusate Sodium (Docusate Sodium 100 Mg Cap) 100 mg PO BID MATT Stop: 08/28/24 15:49 Last Admin: 08/02/24 07:09 Dose: 100 mg Duloxetine HCl (Duloxetine Hcl 30 Mg Cap) 30 mg PO QAM MATT Stop: 08/18/24 08:59 Last Admin: 08/02/24 07:11 Dose: 30 mg Ergocalciferol (Ergocalciferol 1250 Mcg (50,000 Units) Cap) 1,250 mcg PO Tu@0900 MATT Stop: 08/18/24 08:59 Last Admin: 08/02/24 07:12 Dose: 1,250 mcg Ferrous Sulfate (Ferrous Sulfate 325 Mg Tab) 325 mg PO BID MATT Stop: 08/15/24 08:59 Last Admin: 08/02/24 07:10 Dose: 325 mg Glucagon (Glucagon For Inj 1 Mg Vial) 1 mg SQ UD PRN; Protocol PRN Reason: Hypoglycemia Protocol Stop: 08/14/24 23:39 Glucose (Glucose 40% Gel 15 Gm Tube) 15 - 30 gm PO UD PRN; Protocol PRN Reason: Hypoglycemia Protocol Stop: 08/14/24 23:39 Glucose (Glucose 10 Tab/Tube) 4 - 8 tab PO UD PRN; Protocol PRN Reason: Hypoglycemia Protocol Stop: 08/14/24 23:39 Promethazine HCl (Phenergan) 12.5 mg in 50.5 mls @ 202 mls/hr IV Q6H PRN PRN Reason: Nausea And Vomiting Stop: 08/14/24 21:36 Last Infusion: 07/30/24 11:09 Dose: Infused Insulin Aspart (Insulin Aspart Per Unit Charge) 0 units SC ACHS [facility] Stop: 08/14/24 23:39 Last Admin: 08/02/24 12:29 Dose: 11 units Insulin Glargine (Lantus Per Unit Charge) 0 units SQ HS [facility]; Protocol Stop: 08/27/24 20:59 Last Admin: 08/01/24 21:33 Dose: 10 units Insulin Glargine (Lantus Per Unit Charge) 10 units SC DAILY@1130 [facility] Stop: 08/28/24 11:29 Last Admin: 08/02/24 12:29 Dose: 10 units Lactic Acid (Ammonium Lactate 12% Lotion 225 Gm Btl) 1 gm EXT DAILY [facility] Stop: 08/15/24 08:59 Last Admin: 08/02/24 07:12 Dose: 1 gm Lactobacillus Acidophilus (Advanced Probiotic 625 Mg Capsule) 1,250 mg PO DAILY [facility] Stop: 08/15/24 14:14 Last Admin: 08/02/24 07:08 Dose: 1,250 mg Levothyroxine Sodium (Levothyroxine Sodium 88 Mcg Tablet) 88 mcg PO DAILYBB [facility] Stop: 08/15/24 06:29 Last Admin: 08/02/24 06:30 Dose: 88 mcg Lisinopril (Lisinopril 5 Mg Tab) 5 mg PO DAILY MATT Stop: 08/15/24 08:59 Last Admin: 07/19/24 08:28 Dose: 5 mg Loratadine (Loratadine 10 Mg Tab) 10 mg PO DAILY [facility] Stop: 08/15/24 08:59 Last Admin: 08/02/24 07:10 Dose: 10 mg Metoprolol Succinate (Metoprolol Succ 50mg Ext Rel Tab) 150 mg PO QAM [facility] Stop: 08/15/24 08:59 Last Admin: 08/02/24 07:13 Dose: Not Given Miscellaneous (Carbohydrates For Hypoglycemia ) 15 - 30 gm PO UD PRN PRN Reason: Hypoglycemia Protocol Stop: 08/14/24 23:39 Miscellaneous Information (Pharmacy Glycemic Mgmt Consult) 1 each N/A UD PRN; Protocol PRN Reason: Consult Stop: 08/25/24 11:30 Multivitamins/Minerals (Cerovite Adv Formula Tab) 1 tab PO DAILY MATT Stop: 08/15/24 08:59 Last Admin: 08/02/24 07:09 Dose: 1 tab Nystatin/Triamcinolone Acetonide (Nystatin/Triamcin Cr 15 Gm Tube) 1 appln EXT BID MATT Stop: 08/30/24 20:59 Last Admin: 08/02/24 07:13 Dose: 1 appln Ondansetron HCl (Ondansetron Inj 2 Mg/Ml 2 Ml Vial) 4 mg IV Q6H PRN PRN Reason: Nausea And Vomiting Stop: 08/20/24 14:32 Last Admin: 08/02/24 08:03 Dose: 4 mg Oxycodone HCl (Oxycodone Hcl Ir 5 Mg Tab (Immediate Release)) 5 mg PO Q4H PRN PRN Reason: Pain Stop: 08/15/24 00:08 Last Admin: 08/02/24 09:48 Dose: 5 mg Pantoprazole Sodium (Pantoprazole 40 Mg Tab) 40 mg PO BID MATT Stop: 08/15/24 08:59 Last Admin: 08/02/24 07:11 Dose: 40 mg Polyethylene Glycol (Polyethylene (Miralax) 17 Gm Pack) 17 gm PO DAILY MATT Stop: 08/19/24 16:44 Last Admin: 08/02/24 07:13 Dose: Not Given Polyethylene Glycol (Polyethylene (Miralax) 17 Gm Pack) 17 gm PO DAILY MATT Stop: 08/28/24 15:59 Last Admin: 08/02/24 07:13 Dose: Not Given Potassium Chloride (Potassium Chloride Crtab 20 Meq Tabcr) 20 meq PO BID MATT Stop: 08/15/24 20:59 Last Admin: 08/02/24 07:15 Dose: 20 meq Pregabalin (Pregabalin 75 Mg Cap) 75 mg PO TID MATT Stop: 08/15/24 08:59 Last Admin: 08/02/24 13:50 Dose: 75 mg Spironolactone (Spironolactone 25 Mg Tab) 25 mg PO DAILY MATT Stop: 08/16/24 08:59 Last Admin: 08/02/24 07:13 Dose: 25 mg Torsemide (Torsemide 20 Mg Tab) 40 mg PO QAM [facility] Stop: 08/15/24 08:59 Last Admin: 08/02/24 07:10 Dose: 40 mg Torsemide (Torsemide 20 Mg Tab) 20 mg PO DAILY@1700 [facility] Stop: 08/15/24 16:59 Last Admin: 08/01/24 16:08 Dose: 20 mg Warfarin Sodium (Warfarin Sod 4 Mg Tab) 4 mg PO DAILY@1600 [facility] Stop: 08/31/24 15:59 Last Admin: 08/01/24 16:06 Dose: 4 mg
[2024-08-03 06:35] LABS: INR 2.5 (0.9-1.1); Prothrombin Time 24.6 Seconds (9.0-12.0)
--- NOTE | 2024-08-03 12:44 | Hospitalist Progress Note ---
Date of Service August 03, 2024 Assessment & Plan (1) Cellulitis of right leg: Plan 58-year-old man with PMH of HFrEF [EF 30 to 35%, TTE 2024] sp ICD, CAD, VT sp ablation, A-fib/DVT on Coumadin, HTN, HLD, pHTN,/OHS on BPAP, bronchial asthma, T2DM on insulin pump, hypothyroidism, CKD [baseline creatinine of 1.2-1.3], chronic anemia [baseline hemoglobin of 10], mood disorder, RLE osteomyelitis sp surgery, left foot osteomyelitis sp left BKA, morbid obesity who was recently admitted 05/24/2024 to 07/01/2024 for decompensated heart failure/LLE cellulitis and infected chronic right foot ulcer. Wound cultures were negative and patient completed cefepime and meropenem course. There was unsuccessful efforts for rehab/permanent placement at the time and patient was discharged home. Patient was admitted at [facility] July 02 to day after [facility] discharge as patient was found by home health nurse living in deplorable condition. Patient was discharged from the hospital despite executive secretary social welfare notifying hospital providers that patient was not safe going home. Per patient's home health nursing reports, patient has trouble getting food/patient confused about medication/patient worried about bilateral painful leg swelling with intermittent bloody drainage/patient fell off of his chair and had to call [employer] twice to get him up/patient incapable of transfers and is with bowel incontinence.Patient reports having sore throat/myalgia/jay sea/loose stools for last 2 to 3 days YOKER. 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 BLE cellulitis Underlying RLE osteomyelitis Medical noncompliance No sepsis at presentation. Patient with recurrent lower extremity cellulitis likely secondary to noncompliance with medications/diet and patient's functional disability. Admitting imaging: CXR with mild pulmonary edema. C-spine CT and head CT with no acute finding. XR Left lower extremity with no acute bony abnormality, left below-knee amputation noted. Right foot x-ray and right foot CT - suggestive of extensive osteomyelitis. No pathologic fracture noted. CT right lower extremity - suggestive of cellulitis. CT Left knee and BKA stump - suggestive of cellulitis. --Doxycycline 07/16 and cefepime 07/16 ---> ID evaluated 07/18, recs are iv cefe pime 2g q8h, linezolid 600 mg q12h EOT 07/30/2024, recommends amputation of RLE. Linezolid and duloxetine has severe interaction of serotonin syndrome, d/w ID 07/18, plan to decrease dose of duloxetine to half and c/w linezolid Podiatry evaluated, recs are RLE amputation vs palliative care. --Patient currently refuses amputation and does not believe he has osteomyelitis despite explaining in detail --Wound culture growing Klebsiella pneumoniae ESBL, Alcaligenes faecalis --Blood cultures negative -- Continue local wound care --Change IV cefepime to ertapenem--completed antibiotic course Continue Zyvox--completed antibiotic course Discussed with infectious disease on 07/27/2024: Recommends to complete antibiotic course on 07/30/2024 as previously planned. Believes antibiotics will not heal his infection. Recommends amputation if patient agrees Patient prefers to follow-up with his primary pickling solution maker Dr. 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 He does not believe that his foot is infected despite explaining in detail Needs to follow-up with wound care on discharge as well Consulted palliative care to address goals of care Poor prognosis due to noncompliance Case management to help with discharge planning Office of aging is involved Podiatry reexamined the patient today and discussed that right lower extremity wound would not heal likely and would need amputation. Patient not interested in amputation currently. Placement will be difficult given patient's disability and inability to care for self Medically stable and symptomatically much better She will have PT and OT evaluation with the prosthesis and then await further recommendation Remains stable with some weakness being in the bed for so long Acute kidney injury on CKD III: Volume overload status Creatinine 1.4 Monitor renal function and avoid nephrotoxic agents as able Plan to resume lisinopril tomorrow if renal function stable Blood pressure remains on the lower side and will not restart lisinopril today we will monitor PRP Constipation Continue bowel regimen Minimize narcotics as able Resolved Atrial fibrillation: Subtherapeutic INR due to noncompliance Continue metoprolol Continue Coumadin for anticoagulation Monitor INR 1.9 today Increased Coumadin to 5 mg today Monitor INR and adjust Coumadin dose tomorrow if needed INR is 2.4 today- INR is 2.5 as of 08/03/2024 Acute on chronic heart failure with reduced ejection fraction: Recent echo with EF of 30 to 35%, BLE swelling noted, CXR with pulmonary edema at presentation. Likely secondary to medication noncompliance. Continue fluid restriction Monitor I's and O's, monitor and replete electrolytes. Monitor volume status closely Plan to resume lisinopril as able Transitioned IV Lasix to home oral diuretics Adult failure to thrive: Medication noncompliance Inability to take care of the self Patient has had numerous hospitalizations in regards to failure to thrive at home Dietary consult, case management consult. PT/OT Office of aging involved Other chronic medical conditions: Continue with/resume home meds as and when able. T2DM: Continue insulin. Has been refusing dietary restrictions, insulin. Prefers to be placed on regular diet. PVD: Status post left BKA amputation. Continue with home aspirin and Lipitor. Morbid obesity: BMI 46. Likely contributed to PVD and recurrent cellulitis. Counseling done. NINA on CPAP: Continue CPAP at bedtime. Cardiac defibrillator in situ: Noted Major depression disorder: Continue with duloxetine Lymphedema: Likely contributing to cellulitis. Follow-up with lymphedema clinic as an outpatient. Chronic pain syndrome: c/w oxy and lyrica DVT Px: Warfarin Subtherapeutic INR due to noncompliance CODE STATUS Full code Admission and Anticipated Discharge Date Admission Date: July 15, 2024 Subjective 08/02/2024 The patient was seen and examined in medical floor He has been feeling much better today and wants to have real food not the cardiac diet Denies any significant symptoms 08/03/2024 The patient was seen and examined in medical floor Remains stable and complains of weakness and tiredness He will have PT therapy with prosthesis and for further recommendation regarding disposition Review of Systems Review of Systems: All systems reviewed and are unremarkable except as noted below Physical Exam Physical Exam: Lying in bed without any acute distress Constitutional: well developed, well nourished, + ill appearing and + morbidly obese Eyes: PERRL, conjunctivae normal, anicteric sclerae ENMT: external ear and nose normal, oropharynx normal Neck: trachea midline, no thyromegaly Respiratory: no respiratory distress Auscultation: lungs clear to auscultation bilaterally Cardiovascular: Rate/Rhythm: regular rate and regular rhythm; not tachycardic Extremities: + edema ( bilateral leg edema with lymphedema and cellulitis involving right leg) Gastrointestinal (Abdomen): Inspection/Auscultation: normal bowel sounds; abdomen not distended Percussion/Palpation: abdomen soft; abdomen nontender Neurologic: normal touch/pain/proprioception and moves all extremities; no focal motor deficits Lymphatic: no cervical or axillary lymphadenopathy Results & Data Results & Data Vital Signs (Past 12 Hours) Vital Signs Temp Pulse Resp BP Pulse Ox O2 Del Method 08/03/24 07:11 36.7 C 71 16 122/72 95 Room Air Medications Administered Current Inpatient Medications Acetaminophen (Acetaminophen 500 Mg Tab) 500 mg PO Q6H PRN PRN Reason: fever/pain Stop: 08/14/24 21:36 Last Admin: 07/31/24 02:54 Dose: 500 mg Aspirin (Aspirin 81 Mg Ectab) 81 mg PO DAILY MATT Stop: 08/15/24 08:59 Last Admin: 08/03/24 07:08 Dose: 81 mg Atorvastatin Calcium (Atorvastatin 40 Mg Tab) 80 mg PO DAILY MATT Stop: 08/15/24 08:59 Last Admin: 08/03/24 07:07 Dose: 80 mg Bisacodyl (Bisacodyl 10 Mg Supp) 10 mg WV DAILY PRN PRN Reason: Constipation Stop: 08/28/24 15:47 Dextrose (Dextrose 50% 50 Ml Syringe) 25 - 50 ml IV UD PRN; Protocol PRN Reason: Hypoglycemia Protocol Stop: 08/14/24 23:39 Docusate Sodium (Docusate Sodium 100 Mg Cap) 100 mg PO BID MATT Stop: 08/28/24 15:49 Last Admin: 08/03/24 07:10 Dose: Not Given Duloxetine HCl (Duloxetine Hcl 30 Mg Cap) 30 mg PO QAM MATT Stop: 08/18/24 08:59 Last Admin: 08/03/24 07:08 Dose: 30 mg Ergocalciferol (Ergocalciferol 1250 Mcg (50,000 Units) Cap) 1,250 mcg PO Tu@0900 MATT Stop: 08/18/24 08:59 Last Admin: 08/02/24 07:12 Dose: 1,250 mcg Ferrous Sulfate (Ferrous Sulfate 325 Mg Tab) 325 mg PO BID MATT Stop: 08/15/24 08:59 Last Admin: 08/03/24 07:09 Dose: 325 mg Glucagon (Glucagon For Inj 1 Mg Vial) 1 mg SQ UD PRN; Protocol PRN Reason: Hypoglycemia Protocol Stop: 08/14/24 23:39 Glucose (Glucose 40% Gel 15 Gm Tube) 15 - 30 gm PO UD PRN; Protocol PRN Reason: Hypoglycemia Protocol Stop: 08/14/24 23:39 Glucose (Glucose 10 Tab/Tube) 4 - 8 tab PO UD PRN; Protocol PRN Reason: Hypoglycemia Protocol Stop: 08/14/24 23:39 Promethazine HCl (Phenergan) 12.5 mg in 50.5 mls @ 202 mls/hr IV Q6H PRN PRN Reason: Nausea And Vomiting Stop: 08/14/24 21:36 Last Infusion: 07/30/24 11:09 Dose: Infused Insulin Aspart (Insulin Aspart Per Unit Charge) [address] [facility] Stop: 08/14/24 23:39 Last Admin: 08/03/24 11:58 Dose: 11 units Insulin Glargine (Lantus Per Unit Charge) 0 units SQ HS [facility]; Protocol Stop: 08/27/24 20:59 Last Admin: 08/02/24 21:26 Dose: 5 units Insulin Glargine (Lantus Per Unit Charge) 10 units SC DAILY@1130 [facility] Stop: 08/28/24 11:29 Last Admin: 08/03/24 11:58 Dose: 10 units Lactic Acid (Ammonium Lactate 12% Lotion 225 Gm Btl) 1 gm EXT DAILY [facility] Stop: 08/15/24 08:59 Last Admin: 08/03/24 07:08 Dose: 1 gm Lactobacillus Acidophilus (Advanced Probiotic 625 Mg Capsule) 1,250 mg PO DAILY [facility] Stop: 08/15/24 14:14 Last Admin: 08/03/24 07:05 Dose: 1,250 mg Levothyroxine Sodium (Levothyroxine Sodium 88 Mcg Tablet) [facility] Stop: 08/15/24 06:29 Last Admin: 08/03/24 05:41 Dose: 88 mcg Lisinopril (Lisinopril 5 Mg Tab) 5 mg PO DAILY [facility] Stop: 08/15/24 08:59 Last Admin: 07/19/24 08:28 Dose: 5 mg Loratadine (Loratadine 10 Mg Tab) 10 mg PO DAILY [facility] Stop: 08/15/24 08:59 Last Admin: 08/03/24 07:09 Dose: 10 mg Metoprolol Succinate (Metoprolol Succ 50mg Ext Rel Tab) 150 mg PO QAM MATT Stop: 08/15/24 08:59 Last Admin: 08/03/24 07:07 Dose: 150 mg Miscellaneous (Carbohydrates For Hypoglycemia ) 15 - 30 gm PO UD PRN PRN Reason: Hypoglycemia Protocol Stop: 08/14/24 23:39 Miscellaneous Information (Pharmacy Glycemic Mgmt Consult) 1 each N/A UD PRN; Protocol PRN Reason: Consult Stop: 08/25/24 11:30 Multivitamins/Minerals (Cerovite Adv Formula Tab) 1 tab PO DAILY MATT Stop: 08/15/24 08:59 Last Admin: 08/03/24 07:06 Dose: 1 tab Nystatin/Triamcinolone Acetonide (Nystatin/Triamcin Cr 15 Gm Tube) 1 appln EXT BID MATT Stop: 08/30/24 20:59 Last Admin: 08/03/24 07:08 Dose: 1 appln Ondansetron HCl (Ondansetron Inj 2 Mg/Ml 2 Ml Vial) 4 mg IV Q6H PRN PRN Reason: Nausea And Vomiting Stop: 08/20/24 14:32 Last Admin: 08/03/24 05:41 Dose: 4 mg Oxycodone HCl (Oxycodone Hcl Ir 5 Mg Tab (Immediate Release)) 5 mg PO Q4H PRN PRN Reason: Pain Stop: 08/15/24 00:08 Last Admin: 08/03/24 09:38 Dose: 5 mg Pantoprazole Sodium (Pantoprazole 40 Mg Tab) 40 mg PO BID MATT Stop: 08/15/24 08:59 Last Admin: 08/03/24 07:10 Dose: 40 mg Polyethylene Glycol (Polyethylene (Miralax) 17 Gm Pack) 17 gm PO DAILY MATT Stop: 08/19/24 16:44 Last Admin: 08/03/24 07:10 Dose: Not Given Polyethylene Glycol (Polyethylene (Miralax) 17 Gm Pack) 17 gm PO DAILY MATT Stop: 08/28/24 15:59 Last Admin: 08/03/24 07:10 Dose: Not Given Potassium Chloride (Potassium Chloride Crtab 20 Meq Tabcr) 20 meq PO BID MATT Stop: 08/15/24 20:59 Last Admin: 08/03/24 07:13 Dose: 20 meq Pregabalin (Pregabalin 75 Mg Cap) 75 mg PO TID [facility] Stop: 08/15/24 08:59 Last Admin: 08/03/24 07:12 Dose: 75 mg Spironolactone (Spironolactone 25 Mg Tab) 25 mg PO DAILY [facility] Stop: 08/16/24 08:59 Last Admin: 08/03/24 07:10 Dose: 25 mg Torsemide (Torsemide 20 Mg Tab) 40 mg PO QAM [facility] Stop: 08/15/24 08:59 Last Admin: 08/03/24 07:06 Dose: 40 mg Torsemide (Torsemide 20 Mg Tab) 20 mg PO DAILY@1700 [facility] Stop: 08/15/24 16:59 Last Admin: 08/02/24 17:04 Dose: 20 mg Warfarin Sodium (Warfarin Sod 4 Mg Tab) 4 mg PO DAILY@1600 [facility] Stop: 08/31/24 15:59 Last Admin: 08/02/24 17:04 Dose: 4 mg
[2024-08-04 07:13] LABS: Basophils % (auto) 1.6 %; Eosinophils # (auto) 0.36 K/uL (0.00-0.50); Eosinophils % (auto) 5.8 %; Hematocrit (blood only) 37.8 % (42.0-52.0); Hemoglobin 12.2 g/dl (14.0-18.0); Immature Granulocytes # (auto) 0.03 K/uL (0.01-0.20); Immature Granulocytes % (auto) 0.5 %; Lymphocytes # (auto) 1.07 K/uL (1.20-3.40); Lymphocytes % (auto) 17.2 %; Mean Corpuscular Hemoglobin 27.2 pg (25.0-34.0); Mean Corpuscular Hgb Conc 32.3 g/dL (32.0-36.0); Mean Corpuscular Volume 84.4 fL (80.0-100.0); Mean Platelet Volume 10.4 fL (9.4-12.4); Monocytes # (auto) 0.59 K/uL (0.11-0.59); Monocytes % (auto) 9.5 %; Neutrophils # (auto) 4.07 K/uL (1.40-6.50); Neutrophils % (auto) 65.4 %; Platelet Count 166 K/uL (130-400); RDW Coefficient of Variation 16.6 % (11.5-14.5); RDW Standard Deviation 49.3 fL (36.4-46.3); Red Blood Count 4.48 M/uL (4.70-6.10); White Blood Count 6.22 K/ul (4.8-10.8)
[2024-08-04 07:51] LABS: BUN Creatinine Ratio 28.8 (10-20); Calcium 9.2 mg/dl (8.6-10.3); Creatinine Clr Calc Pharmacy 73.8 ml/min; Potassium 4.2 mmol/L (3.5-5.1)
[2024-08-04] MEDS: LANTUS PER UNIT CHARGE SC SCH (12:47)
--- NOTE | 2024-08-04 15:09 | Hospitalist Progress Note ---
Date of Service August 04, 2024 Assessment & Plan (1) Cellulitis of right leg: Plan 58-year-old man with PMH of HFrEF [EF 30 to 35%, TTE 2024] sp ICD, CAD, VT sp ablation, A-fib/DVT on Coumadin, HTN, HLD, pHTN,/OHS on BPAP, bronchial asthma, T2DM on insulin pump, hypothyroidism, CKD [baseline creatinine of 1.2-1.3], chronic anemia [baseline hemoglobin of 10], mood disorder, RLE osteomyelitis sp surgery, left foot osteomyelitis sp left BKA, morbid obesity who was recently admitted 05/24/2024 to 07/01/2024 for decompensated heart failure/LLE cellulitis and infected chronic right foot ulcer. Wound cultures were negative and patient completed cefepime and meropenem course. There was unsuccessful efforts for rehab/permanent placement at the time and patient was discharged home. Patient was admitted at [facility] July 02 to day after [facility] discharge as patient was found by home health nurse living in deplorable condition. Patient was discharged from the hospital despite social work professor notifying hospital providers that patient was not safe going home. 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 BLE cellulitis Underlying RLE osteomyelitis Medical noncompliance No sepsis at presentation. Patient with recurrent lower extremity cellulitis likely secondary to noncompliance with medications/diet and patient's functional disability. Admitting imaging: CXR with mild pulmonary edema. C-spine CT and head CT with no acute finding. XR Left lower extremity with no acute bony abnormality, left below-knee amputation noted. Right foot x-ray and right foot CT - suggestive of extensive osteomyelitis. No pathologic fracture noted. CT right lower extremity - suggestive of cellulitis. CT Left knee and BKA stump - suggestive of cellulitis. --Doxycycline 07/16 and cefepime 07/16 ---> ID evaluated 07/18, recs are iv cef epime 2g q8h, linezolid 600 mg q12h EOT 07/30/2024, recommends amputation of RLE. Linezolid and duloxetine has severe interaction of serotonin syndrome, d/w ID 07/18, plan to decrease dose of duloxetine to half and c/w linezolid Podiatry evaluated, recs are RLE amputation vs palliative care. --Patient currently refuses amputation and does not believe he has osteomyelitis despite explaining in detail --Wound culture growing Klebsiella pneumoniae ESBL, Alcaligenes faecalis --Blood cultures negative -- Continue local wound care --Change IV cefepime to ertapenem--completed antibiotic course Continue Zyvox--completed antibiotic course Discussed with infectious disease on 07/27/2024: Recommends to complete antibiotic course on 07/30/2024 as previously planned. Believes antibiotics will not heal his infection. Recommends amputation if patient agrees Patient prefers to follow-up with his primary communication professor Dr. 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 He does not believe that his foot is infected despite explaining in detail Needs to follow-up with wound care on discharge as well Consulted palliative care to address goals of care Poor prognosis due to noncompliance Case management to help with discharge planning Office of aging is involved Podiatry reexamined the patient today and discussed that right lower extremity wound would not heal likely and would need amputation. Patient not interested in amputation currently. Placement will be difficult given patient's disability and inability to care for self Medically stable and symptomatically much better She will have PT and OT evaluation with the prosthesis and then await further recommendation Remains stable with some weakness being in the bed for so long Has had physical therapy and recommended SNF- awaiting acceptance Acute kidney injury on CKD III: Volume overload status Creatinine 1.4 Monitor renal function and avoid nephrotoxic agents as able Plan to resume lisinopril tomorrow if renal function stable Blood pressure remains on the lower side and will not restart lisinopril today we will monitor PRP Will monitor kidney function in a day or 2 Constipation Continue bowel regimen Minimize narcotics as able Resolved Atrial fibrillation: Subtherapeutic INR due to noncompliance Continue metoprolol Continue Coumadin for anticoagulation Monitor INR 1.9 today Increased Coumadin to 5 mg today Monitor INR and adjust Coumadin dose tomorrow if needed INR is 2.4 today- INR is 2.5 as of 08/03/2024 Rate is controlled and without any cardiac symptoms Acute on chronic heart failure with reduced ejection fraction: Recent echo with EF of 30 to 35%, BLE swelling noted, CXR with pulmonary edema at presentation. Likely secondary to medication noncompliance. Continue fluid restriction Monitor I's and O's, monitor and replete electrolytes. Monitor volume status closely Plan to resume lisinopril as able Transitioned IV Lasix to home oral diuretics Adult failure to thrive: Medication noncompliance Inability to take care of the self Patient has had numerous hospitalizations in regards to failure to thrive at home Dietary consult, case management consult. PT/OT Office of aging involved Other chronic medical conditions: Continue with/resume home meds as and when able. T2DM: Continue insulin. Has been refusing dietary restrictions, insulin. Prefers to be placed on regular diet. PVD: Status post left BKA amputation. Continue with home aspirin and Lipitor. Morbid obesity: BMI 46. Likely contributed to PVD and recurrent cellulitis. Counseling done. NINA on CPAP: Continue CPAP at bedtime. Cardiac defibrillator in situ: Noted Major depression disorder: Continue with duloxetine Lymphedema: Likely contributing to cellulitis. Follow-up with [facility] as an outpatient. Chronic pain syndrome: c/w oxy and lyrica DVT Px: Warfarin Subtherapeutic INR due to noncompliance CODE STATUS Full code Admission and Anticipated Discharge Date Admission Date: July 15, 2024 Subjective 08/02/2024 The patient was seen and examined in medical floor He has been feeling much better today and wants to have real food not the cardiac diet Denies any significant symptoms 08/03/2024 The patient was seen and examined in medical floor Remains stable and complains of weakness and tiredness He will have PT therapy with prosthesis and for further recommendation regarding disposition 08/04/2024 The patient was seen and examined in medical floor He remains stable and complains of ongoing weakness Denies any other distress Review of Systems Review of Systems: All systems reviewed and are unremarkable except as noted below Physical Exam Physical Exam: Lying in bed without any acute distress Constitutional: well developed, well nourished, + ill appearing and + morbidly obese Eyes: PERRL, conjunctivae normal, anicteric sclerae ENMT: external ear and nose normal, oropharynx normal Neck: trachea midline, no thyromegaly Respiratory: no respiratory distress Auscultation: lungs clear to auscultation bilaterally Cardiovascular: Rate/Rhythm: regular rate and regular rhythm; not tachycardic Extremities: + edema ( bilateral leg edema with lymphedema and cellulitis involving right leg) Gastrointestinal (Abdomen): Inspection/Auscultation: normal bowel sounds; abdomen not distended Percussion/Palpation: abdomen soft; abdomen nontender Neurologic: normal touch/pain/proprioception and moves all extremities; no focal motor deficits Lymphatic: no cervical or axillary lymphadenopathy Results & Data Results & Data Vital Signs (Past 12 Hours) Vital Signs Temp Pulse Pulse Resp BP Pulse Ox O2 Del Method 08/04/24 13:50 36.7 C 78 16 120/75 97 Room Air 08/04/24 07:11 36.6 C 72 16 105/66 94 Room Air Laboratory Results Short CBC 08/04/24 Range/Units 05:46 WBC 6.22 (4.8-10.8) K/ul Hgb 12.2 L (14.0-18.0) g/dl Hct 37.8 L (42.0-52.0) % Plt Count 166 (130-400) K/uL BMP 08/04/24 05:46 Sodium 140 Potassium 4.2 Chloride 100 Carbon Dioxide 33 H BUN 47 H Creatinine 1.63 H Glucose 189 H Calcium 9.2 Medications Administered Current Inpatient Medications Acetaminophen (Acetaminophen 500 Mg Tab) 500 mg PO Q6H PRN PRN Reason: fever/pain Stop: 08/14/24 21:36 Last Admin: 07/31/24 02:54 Dose: 500 mg Aspirin (Aspirin 81 Mg Ectab) 81 mg PO DAILY MATT Stop: 08/15/24 08:59 Last Admin: 08/04/24 09:11 Dose: 81 mg Atorvastatin Calcium (Atorvastatin 40 Mg Tab) 80 mg PO DAILY MATT Stop: 08/15/24 08:59 Last Admin: 08/04/24 09:12 Dose: 80 mg Bisacodyl (Bisacodyl 10 Mg Supp) 10 mg FL DAILY PRN PRN Reason: Constipation Stop: 08/28/24 15:47 Dextrose (Dextrose 50% 50 Ml Syringe) 25 - 50 ml IV UD PRN; Protocol PRN Reason: Hypoglycemia Protocol Stop: 08/14/24 23:39 Docusate Sodium (Docusate Sodium 100 Mg Cap) 100 mg PO BID [facility] Stop: 08/28/24 15:49 Last Admin: 08/04/24 07:56 Dose: Not Given Duloxetine HCl (Duloxetine Hcl 30 Mg Cap) 30 mg PO QAM [facility] Stop: 08/18/24 08:59 Last Admin: 08/04/24 09:11 Dose: 30 mg Ergocalciferol (Ergocalciferol 1250 Mcg (50,000 Units) Cap) 1,250 mcg PO Tu@0900 [facility] Stop: 08/18/24 08:59 Last Admin: 08/02/24 07:12 Dose: 1,250 mcg Ferrous Sulfate (Ferrous Sulfate 325 Mg Tab) 325 mg PO BID [facility] Stop: 08/15/24 08:59 Last Admin: 08/04/24 09:12 Dose: 325 mg Glucagon (Glucagon For Inj 1 Mg Vial) 1 mg SQ UD PRN; Protocol PRN Reason: Hypoglycemia Protocol Stop: 08/14/24 23:39 Glucose (Glucose 40% Gel 15 Gm Tube) 15 - 30 gm PO UD PRN; Protocol PRN Reason: Hypoglycemia Protocol Stop: 08/14/24 23:39 Glucose (Glucose 10 Tab/Tube) 4 - 8 tab PO UD PRN; Protocol PRN Reason: Hypoglycemia Protocol Stop: 08/14/24 23:39 Promethazine HCl (Phenergan) 12.5 mg in 50.5 mls @ 202 mls/hr IV Q6H PRN PRN Reason: Nausea And Vomiting Stop: 08/14/24 21:36 Last Infusion: 07/30/24 11:09 Dose: Infused Insulin Aspart (Insulin Aspart Per Unit Charge) 0 units SC ACHS [facility] Stop: 08/14/24 23:39 Last Admin: 08/04/24 12:47 Dose: 12 units Insulin Glargine (Lantus Per Unit Charge) 12 units SC DAILY@1130 [facility] Stop: 08/28/24 11:29 Last Admin: 08/04/24 12:47 Dose: 12 units Insulin Glargine (Lantus Per Unit Charge) 8 units SQ HS [facility] Stop: 08/27/24 20:59 Lactic Acid (Ammonium Lactate 12% Lotion 225 Gm Btl) 1 gm EXT DAILY [facility] Stop: 08/15/24 08:59 Last Admin: 08/04/24 09:11 Dose: 1 gm Lactobacillus Acidophilus (Advanced Probiotic 625 Mg Capsule) 1,250 mg PO DAILY [facility] Stop: 08/15/24 14:14 Last Admin: 08/04/24 09:11 Dose: 1,250 mg Levothyroxine Sodium (Levothyroxine Sodium 88 Mcg Tablet) 88 mcg PO DAILYBB [facility] Stop: 08/15/24 06:29 Last Admin: 08/04/24 05:45 Dose: Not Given Lisinopril (Lisinopril 5 Mg Tab) 5 mg PO DAILY [facility] Stop: 08/15/24 08:59 Last Admin: 07/19/24 08:28 Dose: 5 mg Loratadine (Loratadine 10 Mg Tab) 10 mg PO DAILY [facility] Stop: 08/15/24 08:59 Last Admin: 08/04/24 09:12 Dose: 10 mg Metoprolol Succinate (Metoprolol Succ 50mg Ext Rel Tab) 150 mg PO QAM [facility] Stop: 08/15/24 08:59 Last Admin: 08/04/24 09:13 Dose: 150 mg Miscellaneous (Carbohydrates For Hypoglycemia ) 15 - 30 gm PO UD PRN PRN Reason: Hypoglycemia Protocol Stop: 08/14/24 23:39 Miscellaneous Information (Pharmacy Glycemic Mgmt Consult) 1 each N/A UD PRN; Protocol PRN Reason: Consult Stop: 08/25/24 11:30 Multivitamins/Minerals (Cerovite Adv Formula Tab) 1 tab PO DAILY [facility] Stop: 08/15/24 08:59 Last Admin: 08/04/24 09:11 Dose: 1 tab Nystatin/Triamcinolone Acetonide (Nystatin/Triamcin Cr 15 Gm Tube) 1 appln EXT BID [facility] Stop: 08/30/24 20:59 Last Admin: 08/04/24 09:11 Dose: 1 appln Ondansetron HCl (Ondansetron Inj 2 Mg/Ml 2 Ml Vial) 4 mg IV Q6H PRN PRN Reason: Nausea And Vomiting Stop: 08/20/24 14:32 Last Admin: 08/04/24 10:01 Dose: 4 mg Oxycodone HCl (Oxycodone Hcl Ir 5 Mg Tab (Immediate Release)) 5 mg PO Q4H PRN PRN Reason: Pain Stop: 08/15/24 00:08 Last Admin: 08/04/24 09:21 Dose: 5 mg Pantoprazole Sodium (Pantoprazole 40 Mg Tab) 40 mg PO BID MATT Stop: 08/15/24 08:59 Last Admin: 08/04/24 09:12 Dose: 40 mg Polyethylene Glycol (Polyethylene (Miralax) 17 Gm Pack) 17 gm PO DAILY MATT Stop: 08/19/24 16:44 Last Admin: 08/04/24 07:56 Dose: Not Given Polyethylene Glycol (Polyethylene (Miralax) 17 Gm Pack) 17 gm PO DAILY MATT Stop: 08/28/24 15:59 Last Admin: 08/04/24 07:56 Dose: Not Given Potassium Chloride (Potassium Chloride Crtab 20 Meq Tabcr) 20 meq PO BID MATT Stop: 08/15/24 20:59 Last Admin: 08/04/24 09:10 Dose: 20 meq Pregabalin (Pregabalin 75 Mg Cap) 75 mg PO TID MATT Stop: 08/15/24 08:59 Last Admin: 08/04/24 14:55 Dose: 75 mg Spironolactone (Spironolactone 25 Mg Tab) 25 mg PO DAILY MATT Stop: 08/16/24 08:59 Last Admin: 08/04/24 09:11 Dose: 25 mg Torsemide (Torsemide 20 Mg Tab) 40 mg PO QAM MATT Stop: 08/15/24 08:59 Last Admin: 08/04/24 09:12 Dose: 40 mg Torsemide (Torsemide 20 Mg Tab) 20 mg PO DAILY@1700 [facility] Stop: 08/15/24 16:59 Last Admin: 08/03/24 16:06 Dose: 20 mg Warfarin Sodium (Warfarin Sod 4 Mg Tab) 4 mg PO DAILY@1600 [facility] Stop: 08/31/24 15:59 Last Admin: 08/03/24 16:05 Dose: 4 mg
[2024-08-04] MEDS: LANTUS PER UNIT CHARGE SQ SCH (20:51)
[2024-08-05 10:57] LABS: INR 3.1 (0.9-1.1); Prothrombin Time 30.8 Seconds (9.0-12.0)
--- NOTE | 2024-08-05 11:56 | Hospitalist Progress Note ---
Date of Service August 05, 2024 Assessment & Plan (1) Cellulitis of right leg: Plan 58-year-old man with PMH of HFrEF [EF 30 to 35%, TTE 2024] sp ICD, CAD, VT sp ablation, A-fib/DVT on Coumadin, HTN, HLD, pHTN,/OHS on BPAP, bronchial asthma, T2DM on insulin pump, hypothyroidism, CKD [baseline creatinine of 1.2-1.3], chronic anemia [baseline hemoglobin of 10], mood disorder, RLE osteomyelitis sp surgery, left foot osteomyelitis sp left BKA, morbid obesity who was recently admitted 05/24/2024 to 07/01/2024 for decompensated heart failure/LLE cellulitis and infected chronic right foot ulcer. Wound cultures were negative and patient completed cefepime and meropenem course. There was unsuccessful efforts for rehab/permanent placement at the time and patient was discharged home. Patient was admitted at [facility] July 02 to day after [facility] discharge as patient was found by home health nurse living in deplorable condition. Patient was discharged from the hospital despite social work supervisor notifying hospital providers that patient was not safe going home. Per patient's home health nursing reports, patient has trouble getting food/patient confused about medication/patient worried about bilateral painful leg swelling with intermittent bloody drainage/patient fell off of his chair and had to call [employer] twice to get him up/patient incapable of transfers and is with bowel incontinence.Patient reports having sore throat/myalgia/na usea/loose stools for last 2 to 3 days [employer]. 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 BLE cellulitis Underlying RLE osteomyelitis Medical noncompliance No sepsis at presentation. Patient with recurrent lower extremity cellulitis likely secondary to noncompliance with medications/diet and patient's functional disability. Admitting imaging: CXR with mild pulmonary edema. C-spine CT and head CT with no acute finding. XR Left lower extremity with no acute bony abnormality, left below-knee amputation noted. Right foot x-ray and right foot CT - suggestive of extensive osteomyelitis. No pathologic fracture noted. CT right lower extremity - suggestive of cellulitis. CT Left knee and BKA stump - suggestive of cellulitis. --Doxycycline 07/16 and cefepime 07/16 ---> ID evaluated 07/18, recs are iv cef epime 2g q8h, linezolid 600 mg q12h EOT 07/30/2024, recommends amputation of RLE. Linezolid and duloxetine has severe interaction of serotonin syndrome, d/w ID 07/18, plan to decrease dose of duloxetine to half and c/w linezolid Podiatry evaluated, recs are RLE amputation vs palliative care. --Patient currently refuses amputation and does not believe he has osteomyelitis despite explaining in detail --Wound culture growing Klebsiella pneumoniae ESBL, Alcaligenes faecalis --Blood cultures negative -- Continue local wound care --Change IV cefepime to ertapenem--completed antibiotic course Continue Zyvox--completed antibiotic course Discussed with infectious disease on 07/27/2024: Recommends to complete antibiotic course on 07/30/2024 as previously planned. Believes antibiotics will not heal his infection. Recommends amputation if patient agrees Patient prefers to follow-up with his primary pot washer Dr. 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 He does not believe that his foot is infected despite explaining in detail Needs to follow-up with wound care on discharge as well Consulted palliative care to address goals of care Poor prognosis due to noncompliance Case management to help with discharge planning Office of aging is involved Podiatry reexamined the patient today and discussed that right lower extremity wound would not heal likely and would need amputation. Patient not interested in amputation currently. Placement will be difficult given patient's disability and inability to care for self Medically stable and symptomatically much better She will have PT and OT evaluation with the prosthesis and then await further recommendation Remains stable with some weakness being in the bed for so long Has had physical therapy and recommended SNF- awaiting acceptance He has been waiting to go to SNF. Antibiotic course is finished now will need local wound care as per the wound care nurse Acute kidney injury on CKD III: Volume overload status Creatinine 1.4 Monitor renal function and avoid nephrotoxic agents as able Plan to resume lisinopril tomorrow if renal function stable Blood pressure remains on the lower side and will not restart lisinopril today we will monitor PRP Will monitor kidney function in a day or 2 Will check PRP tomorrow Constipation Continue bowel regimen Minimize narcotics as able Resolved Atrial fibrillation: Subtherapeutic INR due to noncompliance Continue metoprolol Continue Coumadin for anticoagulation Monitor INR 1.9 today Increased Coumadin to 5 mg today Monitor INR and adjust Coumadin dose tomorrow if needed INR is 2.4 today- INR is 2.5 as of 08/03/2024 Rate is controlled and without any cardiac symptoms Acute on chronic heart failure with reduced ejection fraction: Recent echo with EF of 30 to 35%, BLE swelling noted, CXR with pulmonary edema at presentation. Likely secondary to medication noncompliance. Continue fluid restriction Monitor I's and O's, monitor and replete electrolytes. Monitor volume status closely Plan to resume lisinopril as able Transitioned IV Lasix to home oral diuretics Adult failure to thrive: Medication noncompliance Inability to take care of the self Patient has had numerous hospitalizations in regards to failure to thrive at home Dietary consult, case management consult. PT/OT Office of aging involved Other chronic medical conditions: Continue with/resume home meds as and when able. T2DM: Continue insulin. Has been refusing dietary restrictions, insulin. Prefers to be placed on regular diet. PVD: Status post left BKA amputation. Continue with home aspirin and Lipitor. Morbid obesity: BMI 46. Likely contributed to PVD and recurrent cellulitis. Counseling done. NINA on CPAP: Continue CPAP at bedtime. Cardiac defibrillator in situ: Noted Major depression disorder: Continue with duloxetine Lymphedema: Likely contributing to cellulitis. Follow-up with lymphedema clinic as an outpatient. Chronic pain syndrome: c/w oxy and lyrica DVT Px: Warfarin Subtherapeutic INR due to noncompliance CODE STATUS Full code Admission and Anticipated Discharge Date Admission Date: July 15, 2024 Subjective 08/02/2024 The patient was seen and examined in medical floor He has been feeling much better today and wants to have real food not the cardiac diet Denies any significant symptoms 08/03/2024 The patient was seen and examined in medical floor Remains stable and complains of weakness and tiredness He will have PT therapy with prosthesis and for further recommendation regarding disposition 08/04/2024 The patient was seen and examined in medical floor He remains stable and complains of ongoing weakness Denies any other distress 08/05/2024 The patient was seen and examined in medical floor He has been stable and denies any significant symptoms Awaiting placement Review of Systems Review of Systems: All systems reviewed and are unremarkable except as noted below Physical Exam Physical Exam: Lying in bed without any acute distress Constitutional: well developed, well nourished, + ill appearing and + morbidly obese Eyes: PERRL, conjunctivae normal, anicteric sclerae ENMT: external ear and nose normal, oropharynx normal Neck: trachea midline, no thyromegaly Respiratory: no respiratory distress Auscultation: lungs clear to auscultation bilaterally Cardiovascular: Rate/Rhythm: regular rate and regular rhythm; not tachycardic Extremities: + edema ( bilateral leg edema with lymphedema and cellulitis involving right leg) Gastrointestinal (Abdomen): Inspection/Auscultation: normal bowel sounds; abdomen not distended Percussion/Palpation: abdomen soft; abdomen nontender Neurologic: normal touch/pain/proprioception and moves all extremities; no focal motor deficits Lymphatic: no cervical or axillary lymphadenopathy Results & Data Results & Data Vital Signs (Past 12 Hours) Vital Signs Temp Pulse Resp BP Pulse Ox O2 Del Method 08/05/24 08:00 36.6 C 71 16 107/66 94 Room Air Medications Administered Current Inpatient Medications Acetaminophen (Acetaminophen 500 Mg Tab) 500 mg PO Q6H PRN PRN Reason: fever/pain Stop: 08/14/24 21:36 Last Admin: 08/04/24 19:33 Dose: 500 mg Aspirin (Aspirin 81 Mg Ectab) 81 mg PO DAILY MATT Stop: 08/15/24 08:59 Last Admin: 08/05/24 08:03 Dose: 81 mg Atorvastatin Calcium (Atorvastatin 40 Mg Tab) 80 mg PO DAILY MATT Stop: 08/15/24 08:59 Last Admin: 08/05/24 08:03 Dose: 80 mg Bisacodyl (Bisacodyl 10 Mg Supp) 10 mg MO DAILY PRN PRN Reason: Constipation Stop: 08/28/24 15:47 Dextrose (Dextrose 50% 50 Ml Syringe) 25 - 50 ml IV UD PRN; Protocol PRN Reason: Hypoglycemia Protocol Stop: 08/14/24 23:39 Docusate Sodium (Docusate Sodium 100 Mg Cap) 100 mg PO BID MATT Stop: 08/28/24 15:49 Last Admin: 08/05/24 08:12 Dose: 100 mg Duloxetine HCl (Duloxetine Hcl 30 Mg Cap) 30 mg PO QAM MATT Stop: 08/18/24 08:59 Last Admin: 08/05/24 08:03 Dose: 30 mg Ergocalciferol (Ergocalciferol 1250 Mcg (50,000 Units) Cap) 1,250 mcg PO Tu@0900 [facility] Stop: 08/18/24 08:59 Last Admin: 08/02/24 07:12 Dose: 1,250 mcg Ferrous Sulfate (Ferrous Sulfate 325 Mg Tab) 325 mg PO BID MATT Stop: 08/15/24 08:59 Last Admin: 08/05/24 08:03 Dose: 325 mg Glucagon (Glucagon For Inj 1 Mg Vial) 1 mg SQ UD PRN; Protocol PRN Reason: Hypoglycemia Protocol Stop: 08/14/24 23:39 Glucose (Glucose 40% Gel 15 Gm Tube) 15 - 30 gm PO UD PRN; Protocol PRN Reason: Hypoglycemia Protocol Stop: 08/14/24 23:39 Glucose (Glucose 10 Tab/Tube) 4 - 8 tab PO UD PRN; Protocol PRN Reason: Hypoglycemia Protocol Stop: 08/14/24 23:39 Promethazine HCl (Phenergan) 12.5 mg in 50.5 mls @ 202 mls/hr IV Q6H PRN PRN Reason: Nausea And Vomiting Stop: 08/14/24 21:36 Last Infusion: 07/30/24 11:09 Dose: Infused Insulin Aspart (Insulin Aspart Per Unit Charge) 0 units SC ACHS [facility] Stop: 08/14/24 23:39 Last Admin: 08/05/24 08:12 Dose: 8 units Insulin Glargine (Lantus Per Unit Charge) 12 units SC DAILY@1130 [facility] Stop: 08/28/24 11:29 Last Admin: 08/04/24 12:47 Dose: 12 units Insulin Glargine (Lantus Per Unit Charge) 8 units SQ HS [facility] Stop: 08/27/24 20:59 Last Admin: 08/04/24 20:51 Dose: 8 units Lactic Acid (Ammonium Lactate 12% Lotion 225 Gm Btl) 1 gm EXT DAILY [facility] Stop: 08/15/24 08:59 Last Admin: 08/05/24 08:02 Dose: 1 gm Lactobacillus Acidophilus (Advanced Probiotic 625 Mg Capsule) 1,250 mg PO DAILY MATT Stop: 08/15/24 14:14 Last Admin: 08/05/24 08:04 Dose: 1,250 mg Levothyroxine Sodium (Levothyroxine Sodium 88 Mcg Tablet) [facility]: 08/15/24 06:29 Last Admin: 08/05/24 06:17 Dose: 88 mcg Lisinopril (Lisinopril 5 Mg Tab) 5 mg PO DAILY [facility] Stop: 08/15/24 08:59 Last Admin: 07/19/24 08:28 Dose: 5 mg Loratadine (Loratadine 10 Mg Tab) 10 mg PO DAILY MATT Stop: 08/15/24 08:59 Last Admin: 08/05/24 08:04 Dose: 10 mg Metoprolol Succinate (Metoprolol Succ 50mg Ext Rel Tab) 150 mg PO QAM [facility] Stop: 08/15/24 08:59 Last Admin: 08/05/24 08:04 Dose: 150 mg Miscellaneous (Carbohydrates For Hypoglycemia ) 15 - 30 gm PO UD PRN PRN Reason: Hypoglycemia Protocol Stop: 08/14/24 23:39 Miscellaneous Information (Pharmacy Glycemic Mgmt Consult) 1 each N/A UD PRN; Protocol PRN Reason: Consult Stop: 08/25/24 11:30 Multivitamins/Minerals (Cerovite Adv Formula Tab) 1 tab PO DAILY [facility] Stop: 08/15/24 08:59 Last Admin: 08/05/24 08:05 Dose: 1 tab Nystatin/Triamcinolone Acetonide (Nystatin/Triamcin Cr 15 Gm Tube) 1 appln EXT BID [facility] Stop: 08/30/24 20:59 Last Admin: 08/05/24 08:05 Dose: 1 appln Ondansetron HCl (Ondansetron Inj 2 Mg/Ml 2 Ml Vial) 4 mg IV Q6H PRN PRN Reason: Nausea And Vomiting Stop: 08/20/24 14:32 Last Admin: 08/05/24 11:27 Dose: 4 mg Oxycodone HCl (Oxycodone Hcl Ir 5 Mg Tab (Immediate Release)) 5 mg PO Q4H PRN PRN Reason: Pain Stop: 08/15/24 00:08 Last Admin: 08/05/24 11:27 Dose: 5 mg Pantoprazole Sodium (Pantoprazole 40 Mg Tab) 40 mg PO BID [facility] Stop: 08/15/24 08:59 Last Admin: 08/05/24 08:05 Dose: 40 mg Polyethylene Glycol (Polyethylene (Miralax) 17 Gm Pack) 17 gm PO DAILY [facility] Stop: 08/19/24 16:44 Last Admin: 08/05/24 08:07 Dose: Not Given Polyethylene Glycol (Polyethylene (Miralax) 17 Gm Pack) 17 gm PO DAILY [facility] Stop: 08/28/24 15:59 Last Admin: 08/05/24 08:07 Dose: Not Given Potassium Chloride (Potassium Chloride Crtab 20 Meq Tabcr) 20 meq PO BID MATT Stop: 08/15/24 20:59 Last Admin: 08/05/24 08:12 Dose: 20 meq Pregabalin (Pregabalin 75 Mg Cap) 75 mg PO TID [facility] Stop: 08/15/24 08:59 Last Admin: 08/05/24 08:12 Dose: 75 mg Spironolactone (Spironolactone 25 Mg Tab) 25 mg PO DAILY MATT Stop: 08/16/24 08:59 Last Admin: 08/05/24 08:05 Dose: 25 mg Torsemide (Torsemide 20 Mg Tab) 40 mg PO QAM [facility] Stop: 08/15/24 08:59 Last Admin: 08/05/24 08:06 Dose: 40 mg Torsemide (Torsemide 20 Mg Tab) 20 mg PO DAILY@1700 [facility] Stop: 08/15/24 16:59 Last Admin: 08/04/24 16:55 Dose: 20 mg Warfarin Sodium (Warfarin Sod 4 Mg Tab) 4 mg PO DAILY@1600 [facility] Stop: 08/31/24 15:59 Last Admin: 08/04/24 16:49 Dose: 4 mg
--- NOTE | 2024-08-05 13:44 | Pharmacy Report ---
Pharmacy Glycemic Short Note 2 - Date of Service August 05, 2024 - Glycemic Short BSG Results (Last 24 hours): 08/04/24 08/04/24 08/05/24 16:30 20:26 08:00 POC Glucose 177 H 172 H 199 H 08/05/24 11:48 POC Glucose 179 H OUTPATIENT ANTIDIABETIC REGIMEN: * Lantus 12 units SQ BID * Novolog 10 units SQ AC * Januvia 50mg PO daily * HbA1c: 6.5% (05/25/24) ASSESSMENT: 08/05/24: * BSGS [phone] mg/dL yesterday * Basal adjusted to 20 units/day (12 @ 1130, 8 @ HS), fasting 199 mg/dL- will continue with same today * Prandial BSGs improving, continue current novolog parameters for now. 08/01/24: * Mr Lyle received 38 units of insulin yesterday (20 of which were basal), BSGs at goal. * No changes in insulin regimen at this time. * ID recommends amputation if patient agrees, patient currently denies need. 07/29/24: * Mr Lyle received 65 units of insulin yesterday (20 of which were basal) and BSGs were closer to goal. * Morning Lantus dose moved to lunchtime, as pt has been more willing to take the dose at that time. * Pt still intermittently hyperglycemic throughout the day, but will hold off on tightening Novolog parameters at this time, to minimize the risk of hypoglycemia and reduce the likelihood of declined doses. * Other than some adjustments in timing, no other changes to regimen today. 07/28/24: * Patient received 44 units of insulin (20 units of basal and 24 units of prandial/correctional bolus) * Of note: patient is intermittently refusing insulin * Fasting blood glucose of 127 mg/dL this morning - will plan to continue ~20 units of basal or less based on scale this evening * Remains on ertapenem for treatment of RLE cellulitis 07/26/24: * Mr Lyle was admitted on 07/15/24 with cellulitis/possible osteo. * Pharmacy was consulted today to help with glycemic management. * Lantus dose will be increased this evening, as it appears that fasting BSGs have been above goal. * Novolog parameters have been adjusted to better match patient's home use, and also based on data from past admissions. * Pharmacy will continue to follow and adjust regimen as indicated. PLAN FOR INPATIENT GLYCEMIC CONTROL: * Hold outpatient oral diabetes medications * Basal insulin * Lantus 12 units SQ daily with lunch * Lantus 8 units SQ HS * Bolus insulin * NovoLog per scale ACHS or Q6hrs while NPO * Goal Range: Low 110 mg/dL - High 140 mg/dL * Correction Factor: 30 mg/dL/unit * Nutritional / Prandial insulin per carb ratio of 1 unit per 7 grams CHO consumed
[2024-08-06 07:26] LABS: BUN Creatinine Ratio 34.3 (10-20); Calcium 9.3 mg/dl (8.6-10.3); Creatinine Clr Calc Pharmacy 85.9 ml/min; Potassium 4.1 mmol/L (3.5-5.1)
--- NOTE | 2024-08-06 14:25 | Hospitalist Progress Note ---
Date of Service August 06, 2024 Assessment & Plan (1) Cellulitis of right leg: Plan 58-year-old man with PMH of HFrEF [EF 30 to 35%, TTE 2024] sp ICD, CAD, VT sp ablation, A-fib/DVT on Coumadin, HTN, HLD, pHTN,/OHS on BPAP, bronchial asthma, T2DM on insulin pump, hypothyroidism, CKD [baseline creatinine of 1.2-1.3], chronic anemia [baseline hemoglobin of 10], mood disorder, RLE osteomyelitis sp surgery, left foot osteomyelitis sp left BKA, morbid obesity who was recently admitted 05/24/2024 to 07/01/2024 for decompensated heart failure/LLE cellulitis and infected chronic right foot ulcer. Wound cultures were negative and patient completed cefepime and meropenem course. There was unsuccessful efforts for rehab/permanent placement at the time and patient was discharged home. Patient was admitted at [facility] July 02 to day after [facility] discharge as patient was found by home health nurse living in deplorable condition. Patient was discharged from the hospital despite child protective services social worker notifying hospital providers that patient was not safe going home. Per patient's home health nursing reports, patient has trouble getting food/patient confused about medication/patient worried about bilateral painful leg swelling with intermittent bloody drainage/patient fell off of his chair and had to call [employer] twice to get him up/patient incapable of transfers and is with bowel incontinence.Patient reports having sore throat/myalgia/na usea/loose stools for last 2 to 3 days [employer]. 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 BLE cellulitis Underlying RLE osteomyelitis Medical noncompliance No sepsis at presentation. Patient with recurrent lower extremity cellulitis likely secondary to noncompliance with medications/diet and patient's functional disability. Admitting imaging: CXR with mild pulmonary edema. C-spine CT and head CT with no acute finding. XR Left lower extremity with no acute bony abnormality, left below-knee amputation noted. Right foot x-ray and right foot CT - suggestive of extensive osteomyelitis. No pathologic fracture noted. CT right lower extremity - suggestive of cellulitis. CT Left knee and BKA stump - suggestive of cellulitis. --Doxycycline 07/16 and cefepime 07/16 ---> ID evaluated 07/18, recs are iv cef epime 2g q8h, linezolid 600 mg q12h EOT 07/30/2024, recommends amputation of RLE. Linezolid and duloxetine has severe interaction of serotonin syndrome, d/w ID 07/18, plan to decrease dose of duloxetine to half and c/w linezolid Podiatry evaluated, recs are RLE amputation vs palliative care. --Patient currently refuses amputation and does not believe he has osteomyelitis despite explaining in detail --Wound culture growing Klebsiella pneumoniae ESBL, Alcaligenes faecalis --Blood cultures negative -- Continue local wound care --Change IV cefepime to ertapenem--completed antibiotic course Continue Zyvox--completed antibiotic course Discussed with infectious disease on 07/27/2024: Recommends to complete antibiotic course on 07/30/2024 as previously planned. Believes antibiotics will not heal his infection. Recommends amputation if patient agrees Patient prefers to follow-up with his primary flooring helper Dr. 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 He does not believe that his foot is infected despite explaining in detail Needs to follow-up with wound care on discharge as well Consulted palliative care to address goals of care Poor prognosis due to noncompliance Case management to help with discharge planning Office of aging is involved Podiatry reexamined the patient today and discussed that right lower extremity wound would not heal likely and would need amputation. Patient not interested in amputation currently. Placement will be difficult given patient's disability and inability to care for self Medically stable and symptomatically much better She will have PT and OT evaluation with the prosthesis and then await further recommendation Remains stable with some weakness being in the bed for so long Has had physical therapy and recommended SNF- awaiting acceptance He has been waiting to go to SNF. 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 Acute kidney injury on CKD III: Volume overload status Creatinine 1.4 Monitor renal function and avoid nephrotoxic agents as able Plan to resume lisinopril tomorrow if renal function stable Blood pressure remains on the lower side and will not restart lisinopril today we will monitor PRP Will monitor kidney function in a day or 2 Renal function remains stable Constipation Continue bowel regimen Minimize narcotics as able Resolved Atrial fibrillation: Subtherapeutic INR due to noncompliance Continue metoprolol Continue Coumadin for anticoagulation Monitor INR 1.9 today Increased Coumadin to 5 mg today Monitor INR and adjust Coumadin dose tomorrow if needed INR is 2.4 today- INR is 2.5 as of 08/03/2024 Rate is controlled and without any cardiac symptoms Acute on chronic heart failure with reduced ejection fraction: Recent echo with EF of 30 to 35%, BLE swelling noted, CXR with pulmonary edema at presentation. Likely secondary to medication noncompliance. Continue fluid restriction Monitor I's and O's, monitor and replete electrolytes. Monitor volume status closely Plan to resume lisinopril as able Transitioned IV Lasix to home oral diuretics Adult failure to thrive: Medication noncompliance Inability to take care of the self Patient has had numerous hospitalizations in regards to failure to thrive at home Dietary consult, case management consult. PT/OT Office of aging involved Other chronic medical conditions: Continue with/resume home meds as and when able. T2DM: Continue insulin. Has been refusing dietary restrictions, insulin. Prefers to be placed on regular diet. PVD: Status post left BKA amputation. Continue with home aspirin and Lipitor. Morbid obesity: BMI 46. Likely contributed to PVD and recurrent cellulitis. Counseling done. NINA on CPAP: Continue CPAP at bedtime. Cardiac defibrillator in situ: Noted Major depression disorder: Continue with duloxetine Lymphedema: Likely contributing to cellulitis. Follow-up with lymphedema clinic as an outpatient. Chronic pain syndrome: c/w oxy and lyrica DVT Px: Warfarin Subtherapeutic INR due to noncompliance CODE STATUS Full code Admission and Anticipated Discharge Date Admission Date: July 15, 2024 Subjective 08/02/2024 The patient was seen and examined in medical floor He has been feeling much better today and wants to have real food not the cardiac diet Denies any significant symptoms 08/03/2024 The patient was seen and examined in medical floor Remains stable and complains of weakness and tiredness He will have PT therapy with prosthesis and for further recommendation regarding disposition 08/04/2024 The patient was seen and examined in medical floor He remains stable and complains of ongoing weakness Denies any other distress 08/05/2024 The patient was seen and examined in medical floor He has been stable and denies any significant symptoms Awaiting placement 08/06/2024 The patient was seen and examined in medical floor He has been stable and denies any significant symptoms He has been waiting to be transferred to a facility Review of Systems Review of Systems: All systems reviewed and are unremarkable except as noted below Physical Exam Physical Exam: Lying in bed without any acute distress Constitutional: well developed, well nourished, + ill appearing and + morbidly obese Eyes: PERRL, conjunctivae normal, anicteric sclerae ENMT: external ear and nose normal, oropharynx normal Neck: trachea midline, no thyromegaly Respiratory: no respiratory distress Auscultation: lungs clear to auscultation bilaterally Cardiovascular: Rate/Rhythm: regular rate and regular rhythm; not tachycardic Extremities: + edema ( bilateral leg edema with lymphedema and cellulitis involving right leg) Gastrointestinal (Abdomen): Inspection/Auscultation: normal bowel sounds; abdomen not distended Percussion/Palpation: abdomen soft; abdomen nontender Neurologic: normal touch/pain/proprioception and moves all extremities; no focal motor deficits Lymphatic: no cervical or axillary lymphadenopathy Results & Data Results & Data Vital Signs (Past 12 Hours) Vital Signs Temp Pulse Resp BP Pulse Ox O2 Del Method 08/06/24 08:33 36.6 C 66 18 122/77 97 Room Air Laboratory Results BMP 08/06/24 05:56 Sodium 143 Potassium 4.1 Chloride 101 Carbon Dioxide 35 H BUN 48 H Creatinine 1.40 Glucose 122 H Calcium 9.3 Medications Administered Current Inpatient Medications Acetaminophen (Acetaminophen 500 Mg Tab) 500 mg PO Q6H PRN PRN Reason: fever/pain Stop: 08/14/24 21:36 Last Admin: 08/04/24 19:33 Dose: 500 mg Aspirin (Aspirin 81 Mg Ectab) 81 mg PO DAILY MATT Stop: 08/15/24 08:59 Last Admin: 08/06/24 08:43 Dose: 81 mg Atorvastatin Calcium (Atorvastatin 40 Mg Tab) 80 mg PO DAILY MATT Stop: 08/15/24 08:59 Last Admin: 08/06/24 08:43 Dose: 80 mg Bisacodyl (Bisacodyl 10 Mg Supp) 10 mg WA DAILY PRN PRN Reason: Constipation Stop: 08/28/24 15:47 Dextrose (Dextrose 50% 50 Ml Syringe) 25 - 50 ml IV UD PRN; Protocol PRN Reason: Hypoglycemia Protocol Stop: 08/14/24 23:39 Docusate Sodium (Docusate Sodium 100 Mg Cap) 100 mg PO BID [facility] Stop: 08/28/24 15:49 Last Admin: 08/06/24 08:53 Dose: 100 mg Duloxetine HCl (Duloxetine Hcl 30 Mg Cap) 30 mg PO QAM [facility] Stop: 08/18/24 08:59 Last Admin: 08/06/24 08:43 Dose: 30 mg Ergocalciferol (Ergocalciferol 1250 Mcg (50,000 Units) Cap) 1,250 mcg PO Tu@0900 [facility] Stop: 08/18/24 08:59 Last Admin: 08/02/24 07:12 Dose: 1,250 mcg Ferrous Sulfate (Ferrous Sulfate 325 Mg Tab) 325 mg PO BID [facility] Stop: 08/15/24 08:59 Last Admin: 08/06/24 08:43 Dose: 325 mg Glucagon (Glucagon For Inj 1 Mg Vial) 1 mg SQ UD PRN; Protocol PRN Reason: Hypoglycemia Protocol Stop: 08/14/24 23:39 Glucose (Glucose 40% Gel 15 Gm Tube) 15 - 30 gm PO UD PRN; Protocol PRN Reason: Hypoglycemia Protocol Stop: 08/14/24 23:39 Glucose (Glucose 10 Tab/Tube) 4 - 8 tab PO UD PRN; Protocol PRN Reason: Hypoglycemia Protocol Stop: 08/14/24 23:39 Promethazine HCl (Phenergan) 12.5 mg in 50.5 mls @ 202 mls/hr IV Q6H PRN PRN Reason: Nausea And Vomiting Stop: 08/14/24 21:36 Last Infusion: 07/30/24 11:09 Dose: Infused Insulin Aspart (Insulin Aspart Per Unit Charge) 0 units SC ACHS [facility] Stop: 08/14/24 23:39 Last Admin: 08/06/24 12:33 Dose: 10 units Insulin Glargine (Lantus Per Unit Charge) 12 units SC DAILY@1130 [facility] Stop: 08/28/24 11:29 Last Admin: 08/06/24 12:32 Dose: 12 units Insulin Glargine (Lantus Per Unit Charge) 8 units SQ HS [facility] Stop: 08/27/24 20:59 Last Admin: 08/05/24 21:45 Dose: 8 units Lactic Acid (Ammonium Lactate 12% Lotion 225 Gm Btl) 1 gm EXT DAILY [facility] Stop: 08/15/24 08:59 Last Admin: 08/06/24 08:45 Dose: 1 gm Lactobacillus Acidophilus (Advanced Probiotic 625 Mg Capsule) 1,250 mg PO DAILY [facility] Stop: 08/15/24 14:14 Last Admin: 08/06/24 08:43 Dose: 1,250 mg Levothyroxine Sodium (Levothyroxine Sodium 88 Mcg Tablet) 88 mcg PO DAILYBB [facility] Stop: 08/15/24 06:29 Last Admin: 08/06/24 06:27 Dose: 88 mcg Lisinopril (Lisinopril 5 Mg Tab) 5 mg PO DAILY MATT Stop: 08/15/24 08:59 Last Admin: 07/19/24 08:28 Dose: 5 mg Loratadine (Loratadine 10 Mg Tab) 10 mg PO DAILY [facility] Stop: 08/15/24 08:59 Last Admin: 08/06/24 08:44 Dose: 10 mg Metoprolol Succinate (Metoprolol Succ 50mg Ext Rel Tab) 150 mg PO QAM [facility] Stop: 08/15/24 08:59 Last Admin: 08/06/24 08:44 Dose: 150 mg Miscellaneous (Carbohydrates For Hypoglycemia ) 15 - 30 gm PO UD PRN PRN Reason: Hypoglycemia Protocol Stop: 08/14/24 23:39 Miscellaneous Information (Pharmacy Glycemic Mgmt Consult) 1 each N/A UD PRN; Protocol PRN Reason: Consult Stop: 08/25/24 11:30 Multivitamins/Minerals (Cerovite Adv Formula Tab) 1 tab PO DAILY [facility] Stop: 08/15/24 08:59 Last Admin: 08/06/24 08:44 Dose: 1 tab Nystatin/Triamcinolone Acetonide (Nystatin/Triamcin Cr 15 Gm Tube) 1 appln EXT BID [facility] Stop: 08/30/24 20:59 Last Admin: 08/06/24 08:45 Dose: 1 appln Ondansetron HCl (Ondansetron Inj 2 Mg/Ml 2 Ml Vial) 4 mg IV Q6H PRN PRN Reason: Nausea And Vomiting Stop: 08/20/24 14:32 Last Admin: 08/06/24 11:47 Dose: 4 mg Oxycodone HCl (Oxycodone Hcl Ir 5 Mg Tab (Immediate Release)) 5 mg PO Q4H PRN PRN Reason: Pain Stop: 08/15/24 00:08 Last Admin: 08/06/24 08:40 Dose: 5 mg Pantoprazole Sodium (Pantoprazole 40 Mg Tab) 40 mg PO BID [facility]ATT Stop: 08/15/24 08:59 Last Admin: 08/06/24 08:44 Dose: 40 mg Polyethylene Glycol (Polyethylene (Miralax) 17 Gm Pack) 17 gm PO DAILY [facility] Stop: 08/19/24 16:44 Last Admin: 08/06/24 08:53 Dose: 17 gm Polyethylene Glycol (Polyethylene (Miralax) 17 Gm Pack) 17 gm PO DAILY [facility] Stop: 08/28/24 15:59 Last Admin: 08/06/24 08:53 Dose: 17 gm Potassium Chloride (Potassium Chloride Crtab 20 Meq Tabcr) 20 meq PO BID [facility]ATT Stop: 08/15/24 20:59 Last Admin: 08/06/24 08:53 Dose: 20 meq Pregabalin (Pregabalin 75 Mg Cap) 75 mg PO TID [facility]ATT Stop: 08/15/24 08:59 Last Admin: 08/06/24 08:52 Dose: 75 mg Spironolactone (Spironolactone 25 Mg Tab) 25 mg PO DAILY MATT Stop: 08/16/24 08:59 Last Admin: 08/06/24 08:44 Dose: 25 mg Torsemide (Torsemide 20 Mg Tab) 40 mg PO QAM [facility] Stop: 08/15/24 08:59 Last Admin: 08/06/24 08:44 Dose: 40 mg Torsemide (Torsemide 20 Mg Tab) 20 mg PO DAILY@1700 [facility] Stop: 08/15/24 16:59 Last Admin: 08/05/24 16:58 Dose: 20 mg Warfarin Sodium (Warfarin Sod 4 Mg Tab) 4 mg PO DAILY@1600 [facility] Stop: 08/31/24 15:59 Last Admin: 08/05/24 16:57 Dose: 4 mg
[2024-08-07 07:17] LABS: INR 3.9 (0.9-1.1); Prothrombin Time 37.2 Seconds (9.0-12.0)
--- NOTE | 2024-08-07 10:59 | Hospitalist Progress Note ---
Date of Service August 07, 2024 Assessment & Plan (1) Cellulitis of right leg: Plan 58-year-old man with PMH of HFrEF [EF 30 to 35%, TTE 2024] sp ICD, CAD, VT sp ablation, A-fib/DVT on Coumadin, HTN, HLD, pHTN,/OHS on BPAP, bronchial asthma, T2DM on insulin pump, hypothyroidism, CKD [baseline creatinine of 1.2-1.3], chronic anemia [baseline hemoglobin of 10], mood disorder, RLE osteomyelitis sp surgery, left foot osteomyelitis sp left BKA, morbid obesity who was recently admitted 05/24/2024 to 07/01/2024 for decompensated heart failure/LLE cellulitis and infected chronic right foot ulcer. Wound cultures were negative and patient completed cefepime and meropenem course. There was unsuccessful efforts for rehab/permanent placement at the time and patient was discharged home. Patient was admitted at [facility] July 02 to day after [facility] discharge as patient was found by home health nurse living in deplorable condition. Patient was discharged from the hospital despite public health social worker notifying hospital providers that patient was not safe going home. Per patient's home health nursing reports, patient has trouble getting food/patient confused about medication/patient worried about bilateral painful leg swelling with intermittent bloody drainage/patient fell off of his chair and had to call [employer] twice to get him up/patient incapable of transfers and is with bowel incontinence.Patient reports having sore throat/myalgia/na usea/loose stools for last 2 to 3 days [employer]. 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 BLE cellulitis Underlying RLE osteomyelitis Medical noncompliance No sepsis at presentation. Patient with recurrent lower extremity cellulitis likely secondary to noncompliance with medications/diet and patient's functional disability. Admitting imaging: CXR with mild pulmonary edema. C-spine CT and head CT with no acute finding. XR Left lower extremity with no acute bony abnormality, left below-knee amputation noted. Right foot x-ray and right foot CT - suggestive of extensive osteomyelitis. No pathologic fracture noted. CT right lower extremity - suggestive of cellulitis. CT Left knee and BKA stump - suggestive of cellulitis. --Doxycycline 07/16 and cefepime 07/16 ---> ID evaluated 07/18, recs are iv cef epime 2g q8h, linezolid 600 mg q12h EOT 07/30/2024, recommends amputation of RLE. Linezolid and duloxetine has severe interaction of serotonin syndrome, d/w ID 07/18, plan to decrease dose of duloxetine to half and c/w linezolid Podiatry evaluated, recs are RLE amputation vs palliative care. --Patient currently refuses amputation and does not believe he has osteomyelitis despite explaining in detail --Wound culture growing Klebsiella pneumoniae ESBL, Alcaligenes faecalis --Blood cultures negative -- Continue local wound care --Change IV cefepime to ertapenem--completed antibiotic course Continue Zyvox--completed antibiotic course Discussed with infectious disease on 07/27/2024: Recommends to complete antibiotic course on 07/30/2024 as previously planned. Believes antibiotics will not heal his infection. Recommends amputation if patient agrees Patient prefers to follow-up with his primary iron pellet tester Dr. 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 He does not believe that his foot is infected despite explaining in detail Needs to follow-up with wound care on discharge as well Consulted palliative care to address goals of care Poor prognosis due to noncompliance Case management to help with discharge planning Office of aging is involved Podiatry reexamined the patient today and discussed that right lower extremity wound would not heal likely and would need amputation. Patient not interested in amputation currently. Placement will be difficult given patient's disability and inability to care for self Medically stable and symptomatically much better She will have PT and OT evaluation with the prosthesis and then await further recommendation Remains stable with some weakness being in the bed for so long Has had physical therapy and recommended SNF- awaiting acceptance He has been waiting to go to SNF. 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 Remains stable and for the first time he is out of bed on a chair without any significant symptomsawaiting placement Acute kidney injury on CKD III: Volume overload status Creatinine 1.4 Monitor renal function and avoid nephrotoxic agents as able Plan to resume lisinopril tomorrow if renal function stable Blood pressure remains on the lower side and will not restart lisinopril today we will monitor PRP Will monitor kidney function in a day or 2 Renal function remains stable Constipation Continue bowel regimen Minimize narcotics as able Resolved Atrial fibrillation: Subtherapeutic INR due to noncompliance Continue metoprolol Continue Coumadin for anticoagulation Monitor INR 1.9 today Increased Coumadin to 5 mg today Monitor INR and adjust Coumadin dose tomorrow if needed INR is 2.4 today- INR is 2.5 as of 08/03/2024 Rate is controlled and without any cardiac symptoms Acute on chronic heart failure with reduced ejection fraction: Recent echo with EF of 30 to 35%, BLE swelling noted, CXR with pulmonary edema at presentation. Likely secondary to medication noncompliance. Continue fluid restriction Monitor I's and O's, monitor and replete electrolytes. Monitor volume status closely Plan to resume lisinopril as able Transitioned IV Lasix to home oral diuretics Adult failure to thrive: Medication noncompliance Inability to take care of the self Patient has had numerous hospitalizations in regards to failure to thrive at home Dietary consult, case management consult. PT/OT Office of aging involved Other chronic medical conditions: Continue with/resume home meds as and when able. T2DM: Continue insulin. Has been refusing dietary restrictions, insulin. Prefers to be placed on regular diet. PVD: Status post left BKA amputation. Continue with home aspirin and Lipitor. Morbid obesity: BMI 46. Likely contributed to PVD and recurrent cellulitis. Counseling done. NINA on CPAP: Continue CPAP at bedtime. Cardiac defibrillator in situ: Noted Major depression disorder: Continue with duloxetine Lymphedema: Likely contributing to cellulitis. Follow-up with lymphedema clinic as an outpatient. Chronic pain syndrome: c/w oxy and lyrica DVT Px: Warfarin Subtherapeutic INR due to noncompliance INR is 3.9 today and will monitor CODE STATUS Full code Admission and Anticipated Discharge Date Admission Date: July 15, 2024 Subjective 08/02/2024 The patient was seen and examined in medical floor He has been feeling much better today and wants to have real food not the cardiac diet Denies any significant symptoms 08/03/2024 The patient was seen and examined in medical floor Remains stable and complains of weakness and tiredness He will have PT therapy with prosthesis and for further recommendation regarding disposition 08/04/2024 The patient was seen and examined in medical floor He remains stable and complains of ongoing weakness Denies any other distress 08/05/2024 The patient was seen and examined in medical floor He has been stable and denies any significant symptoms Awaiting placement 08/06/2024 The patient was seen and examined in medical floor He has been stable and denies any significant symptoms He has been waiting to be transferred to a facility 08/07/2024 The patient was seen and examined in medical floor He has been out of bed on a chair and doing fine Denies any significant symptoms today Review of Systems Review of Systems: All systems reviewed and are unremarkable except as noted below Physical Exam Physical Exam: Out of bed to chair and manipulating the chair to keep the leg elevated Constitutional: well developed, well nourished, + ill appearing and + morbidly obese Eyes: PERRL, conjunctivae normal, anicteric sclerae ENMT: external ear and nose normal, oropharynx normal Neck: trachea midline, no thyromegaly Respiratory: no respiratory distress Auscultation: lungs clear to auscultation bilaterally Cardiovascular: Rate/Rhythm: regular rate and regular rhythm; not tachycardic Extremities: + edema ( bilateral leg edema with lymphedema and cellulitis involving right leg) Gastrointestinal (Abdomen): Inspection/Auscultation: normal bowel sounds; abdomen not distended Percussion/Palpation: abdomen soft; abdomen nontender Neurologic: normal touch/pain/proprioception and moves all extremities; no focal motor deficits Lymphatic: no cervical or axillary lymphadenopathy Results & Data Results & Data Vital Signs (Past 12 Hours) Vital Signs Temp Pulse Resp BP Pulse Ox O2 Del Method 08/07/24 07:24 36.5 C 69 16 119/79 97 Room Air Medications Administered Current Inpatient Medications Acetaminophen (Acetaminophen 500 Mg Tab) 500 mg PO Q6H PRN PRN Reason: fever/pain Stop: 08/14/24 21:36 Last Admin: 08/04/24 19:33 Dose: 500 mg Aspirin (Aspirin 81 Mg Ectab) 81 mg PO DAILY [facility] Stop: 08/15/24 08:59 Last Admin: 08/07/24 08:48 Dose: 81 mg Atorvastatin Calcium (Atorvastatin 40 Mg Tab) 80 mg PO DAILY [facility] Stop: 08/15/24 08:59 Last Admin: 08/07/24 08:49 Dose: 80 mg Bisacodyl (Bisacodyl 10 Mg Supp) 10 mg GA DAILY PRN PRN Reason: Constipation Stop: 08/28/24 15:47 Dextrose (Dextrose 50% 50 Ml Syringe) 25 - 50 ml IV UD PRN; Protocol PRN Reason: Hypoglycemia Protocol Stop: 08/14/24 23:39 Docusate Sodium (Docusate Sodium 100 Mg Cap) 100 mg PO BID [facility] Stop: 08/28/24 15:49 Last Admin: 08/07/24 08:56 Dose: 100 mg Duloxetine HCl (Duloxetine Hcl 30 Mg Cap) 30 mg PO QAM [facility] Stop: 08/18/24 08:59 Last Admin: 08/07/24 08:49 Dose: 30 mg Ergocalciferol (Ergocalciferol 1250 Mcg (50,000 Units) Cap) 1,250 mcg PO Tu@0900 [facility] Stop: 08/18/24 08:59 Last Admin: 08/02/24 07:12 Dose: 1,250 mcg Ferrous Sulfate (Ferrous Sulfate 325 Mg Tab) 325 mg PO BID [facility] Stop: 08/15/24 08:59 Last Admin: 08/07/24 08:48 Dose: 325 mg Glucagon (Glucagon For Inj 1 Mg Vial) 1 mg SQ UD PRN; Protocol PRN Reason: Hypoglycemia Protocol Stop: 08/14/24 23:39 Glucose (Glucose 40% Gel 15 Gm Tube) 15 - 30 gm PO UD PRN; Protocol PRN Reason: Hypoglycemia Protocol Stop: 08/14/24 23:39 Glucose (Glucose 10 Tab/Tube) 4 - 8 tab PO UD PRN; Protocol PRN Reason: Hypoglycemia Protocol Stop: 08/14/24 23:39 Promethazine HCl (Phenergan) 12.5 mg in 50.5 mls @ 202 mls/hr IV Q6H PRN PRN Reason: Nausea And Vomiting Stop: 08/14/24 21:36 Last Infusion: 07/30/24 11:09 Dose: Infused Insulin Aspart (Insulin Aspart Per Unit Charge) 0 units SC ACHS [facility] Stop: 08/14/24 23:39 Last Admin: 08/07/24 08:56 Dose: 8 units Insulin Glargine (Lantus Per Unit Charge) 8 units SQ HS [facility] Stop: 08/27/24 20:59 Last Admin: 08/06/24 21:00 Dose: 8 units Insulin Glargine (Lantus Per Unit Charge) 14 units SC DAILY@1130 [facility] Stop: 09/06/24 11:29 Lactic Acid (Ammonium Lactate 12% Lotion 225 Gm Btl) 1 gm EXT DAILY [facility] Stop: 08/15/24 08:59 Last Admin: 08/07/24 08:50 Dose: 1 gm Lactobacillus Acidophilus (Advanced Probiotic 625 Mg Capsule) 1,250 mg PO DAILY [facility] Stop: 08/15/24 14:14 Last Admin: 08/07/24 08:48 Dose: 1,250 mg Levothyroxine Sodium (Levothyroxine Sodium 88 Mcg Tablet) 88 mcg PO DAILYBB [facility] Stop: 08/15/24 06:29 Last Admin: 08/07/24 05:56 Dose: 88 mcg Lisinopril (Lisinopril 5 Mg Tab) 5 mg PO DAILY [facility] Stop: 08/15/24 08:59 Last Admin: 07/19/24 08:28 Dose: 5 mg Loratadine (Loratadine 10 Mg Tab) 10 mg PO DAILY [facility] Stop: 08/15/24 08:59 Last Admin: 08/07/24 08:48 Dose: 10 mg Metoprolol Succinate (Metoprolol Succ 50mg Ext Rel Tab) 150 mg PO QAM [facility] Stop: 08/15/24 08:59 Last Admin: 08/07/24 08:48 Dose: 150 mg Miscellaneous (Carbohydrates For Hypoglycemia ) 15 - 30 gm PO UD PRN PRN Reason: Hypoglycemia Protocol Stop: 08/14/24 23:39 Miscellaneous Information (Pharmacy Glycemic Mgmt Consult) 1 each N/A UD PRN; Protocol PRN Reason: Consult Stop: 08/25/24 11:30 Multivitamins/Minerals (Cerovite Adv Formula Tab) 1 tab PO DAILY [facility] Stop: 08/15/24 08:59 Last Admin: 08/07/24 08:48 Dose: 1 tab Nystatin/Triamcinolone Acetonide (Nystatin/Triamcin Cr 15 Gm Tube) 1 appln EXT BID [facility] Stop: 08/30/24 20:59 Last Admin: 08/07/24 08:49 Dose: 1 appln Ondansetron HCl (Ondansetron Inj 2 Mg/Ml 2 Ml Vial) 4 mg IV Q6H PRN PRN Reason: Nausea And Vomiting Stop: 08/20/24 14:32 Last Admin: 08/07/24 04:44 Dose: 4 mg Oxycodone HCl (Oxycodone Hcl Ir 5 Mg Tab (Immediate Release)) 5 mg PO Q4H PRN PRN Reason: Pain Stop: 08/15/24 00:08 Last Admin: 08/07/24 04:44 Dose: 5 mg Pantoprazole Sodium (Pantoprazole 40 Mg Tab) 40 mg PO BID [facility] Stop: 08/15/24 08:59 Last Admin: 08/07/24 08:48 Dose: 40 mg Polyethylene Glycol (Polyethylene (Miralax) 17 Gm Pack) 17 gm PO DAILY [facility] Stop: 08/19/24 16:44 Last Admin: 08/07/24 08:50 Dose: Not Given Polyethylene Glycol (Polyethylene (Miralax) 17 Gm Pack) 17 gm PO DAILY [facility] Stop: 08/28/24 15:59 Last Admin: 08/07/24 08:50 Dose: Not Given Potassium Chloride (Potassium Chloride Crtab 20 Meq Tabcr) 20 meq PO BID [facility] Stop: 08/15/24 20:59 Last Admin: 08/07/24 08:56 Dose: 20 meq Pregabalin (Pregabalin 75 Mg Cap) 75 mg PO TID [facility] Stop: 08/15/24 08:59 Last Admin: 08/07/24 08:56 Dose: 75 mg Spironolactone (Spironolactone 25 Mg Tab) 25 mg PO DAILY [facility] Stop: 08/16/24 08:59 Last Admin: 08/07/24 08:48 Dose: 25 mg Torsemide (Torsemide 20 Mg Tab) 40 mg PO QAM [facility] Stop: 08/15/24 08:59 Last Admin: 08/07/24 08:49 Dose: 40 mg Torsemide (Torsemide 20 Mg Tab) 20 mg PO DAILY@1700 [facility] Stop: 08/15/24 16:59 Last Admin: 08/06/24 17:04 Dose: 20 mg Warfarin Sodium (Warfarin Sod 4 Mg Tab) 4 mg PO DAILY@1600 [facility] Stop: 08/31/24 15:59 Last Admin: 08/06/24 17:03 Dose: 4 mg
[2024-08-07] MEDS: LANTUS PER UNIT CHARGE SC SCH (12:04)
[2024-08-08 08:45] LABS: Prothrombin Time 38.5 Seconds (9.0-12.0)
--- NOTE | 2024-08-08 10:18 | Pharmacy Report ---
Pharmacy Glycemic Short Note 2 - Date of Service August 08, 2024 - Glycemic Short BSG Results (Last 24 hours): 08/07/24 08/07/24 08/07/24 11:42 16:46 20:52 POC Glucose 261 H 175 H 213 H 08/08/24 07:36 POC Glucose 253 H OUTPATIENT ANTIDIABETIC REGIMEN: * Lantus 12 units SQ BID * Novolog 10 units SQ AC * Januvia 50mg PO daily * HbA1c: 6.5% (05/25/24) ASSESSMENT: 08/08/24: * Patient received 58 units of insulin yesterday (10 units more than the previous day), BSGS rising with meals yesterday, tighten CR. * Fasting still elevated today, despite increase in basal yesterday, will wait to see if tighter CR fixes high blood sugars, if not, consider increasing basal tomorrow. 08/05/24: * BSGS [phone] mg/dL yesterday * Basal adjusted to 20 units/day (12 @ 1130, 8 @ HS), fasting 199 mg/dL- will co ntinue with same today * Prandial BSGs improving, continue current novolog parameters for now. 08/01/24: * Mr Lyle received 38 units of insulin yesterday (20 of which were basal), BSGs at goal. * No changes in insulin regimen at this time. * ID recommends amputation if patient agrees, patient currently denies need. 07/29/24: * Mr Lyle received 65 units of insulin yesterday (20 of which were basal) and BSGs were closer to goal. * Morning Lantus dose moved to lunchtime, as pt has been more willing to take the dose at that time. * Pt still intermittently hyperglycemic throughout the day, but will hold off on tightening Novolog parameters at this time, to minimize the risk of hypoglycemia and reduce the likelihood of declined doses. * Other than some adjustments in timing, no other changes to regimen today. 07/28/24: * Patient received 44 units of insulin (20 units of basal and 24 units of prandial/correctional bolus) * Of note: patient is intermittently refusing insulin * Fasting blood glucose of 127 mg/dL this morning - will plan to continue ~20 units of basal or less based on scale this evening * Remains on ertapenem for treatment of RLE cellulitis 07/26/24: * Mr Lyle was admitted on 07/15/24 with cellulitis/possible osteo. * Pharmacy was consulted today to help with glycemic management. * Lantus dose will be increased this evening, as it appears that fasting BSGs have been above goal. * Novolog parameters have been adjusted to better match patient's home use, and also based on data from past admissions. * Pharmacy will continue to follow and adjust regimen as indicated. PLAN FOR INPATIENT GLYCEMIC CONTROL: * Hold outpatient oral diabetes medications * Basal insulin * Lantus 14 units SQ daily with lunch * Lantus 8 units SQ HS * Bolus insulin * NovoLog per scale ACHS or Q6hrs while NPO * Goal Range: Low 110 mg/dL - High 140 mg/dL * Correction Factor: 30 mg/dL/unit * Nutritional / Prandial insulin per carb ratio of 1 unit per 6 grams CHO consumed
[2024-08-08] MEDS: DICYCLOMINE HCL 10 MG CAP PO ONE (12:47)
--- NOTE | 2024-08-08 13:11 | Hospitalist Progress Note ---
Date of Service August 08, 2024 Assessment & Plan (1) Cellulitis of right leg: Plan 58-year-old man with PMH of HFrEF [EF 30 to 35%, TTE 2024] sp ICD, CAD, VT sp ablation, A-fib/DVT on Coumadin, HTN, HLD, pHTN,/OHS on BPAP, bronchial asthma, T2DM on insulin pump, hypothyroidism, CKD [baseline creatinine of 1.2-1.3], chronic anemia [baseline hemoglobin of 10], mood disorder, RLE osteomyelitis sp surgery, left foot osteomyelitis sp left BKA, morbid obesity who was recently admitted 05/24/2024 to 07/01/2024 for decompensated heart failure/LLE cellulitis and infected chronic right foot ulcer. Wound cultures were negative and patient completed cefepime and meropenem course. There was unsuccessful efforts for rehab/permanent placement at the time and patient was discharged home. Patient was admitted at [facility] July 02 to day after [facility] discharge as patient was found by home health nurse living in deplorable condition. Patient was discharged from the hospital despite social work administrator notifying hospital providers that patient was not safe going home. Per patient's home health nursing reports, patient has trouble getting food/patient confused about medication/patient worried about bilateral painful leg swelling with intermittent bloody drainage/patient fell off of his chair and had to call [employer] twice to get him up/patient incapable of transfers and is with bowel incontinence.Patient reports having sore throat/myalgia/na usea/loose stools for last 2 to 3 days [employer]. 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 BLE cellulitis Underlying RLE osteomyelitis Medical noncompliance No sepsis at presentation. Patient with recurrent lower extremity cellulitis likely secondary to noncompliance with medications/diet and patient's functional disability. Admitting imaging: CXR with mild pulmonary edema. C-spine CT and head CT with no acute finding. XR Left lower extremity with no acute bony abnormality, left below-knee amputation noted. Right foot x-ray and right foot CT - suggestive of extensive osteomyelitis. No pathologic fracture noted. CT right lower extremity - suggestive of cellulitis. CT Left knee and BKA stump - suggestive of cellulitis. --Doxycycline 07/16 and cefepime 07/16 ---> ID evaluated 07/18, recs are iv cef epime 2g q8h, linezolid 600 mg q12h EOT 07/30/2024, recommends amputation of RLE. Linezolid and duloxetine has severe interaction of serotonin syndrome, d/w ID 07/18, plan to decrease dose of duloxetine to half and c/w linezolid Podiatry evaluated, recs are RLE amputation vs palliative care. --Patient currently refuses amputation and does not believe he has osteomyelitis despite explaining in detail --Wound culture growing Klebsiella pneumoniae ESBL, Alcaligenes faecalis --Blood cultures negative -- Continue local wound care --Change IV cefepime to ertapenem--completed antibiotic course Continue Zyvox--completed antibiotic course Discussed with infectious disease on 07/27/2024: Recommends to complete antibiotic course on 07/30/2024 as previously planned. Believes antibiotics will not heal his infection. 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 He does not believe that his foot is infected despite explaining in detail Needs to follow-up with wound care on discharge as well Consulted palliative care to address goals of care Poor prognosis due to noncompliance Case management to help with discharge planning Office of aging is involved Podiatry reexamined the patient today and discussed that right lower extremity wound would not heal likely and would need amputation. Patient not interested in amputation currently. Placement will be difficult given patient's disability and inability to care for self Medically stable and symptomatically much better She will have PT and OT evaluation with the prosthesis and then await further recommendation Remains stable with some weakness being in the bed for so long Has had physical therapy and recommended SNF- awaiting acceptance He has been waiting to go to SNF. 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 Remains stable and for the first time he is out of bed on a chair without any significant symptomsawaiting placement Very noncompliant does not want to follow dietary advice and/or fluid restriction, Otherwise remains stable to be discharged Acute kidney injury on CKD III: Volume overload status Creatinine 1.4 Monitor renal function and avoid nephrotoxic agents as able Plan to resume lisinopril tomorrow if renal function stable Blood pressure remains on the lower side and will not restart lisinopril today we will monitor PRP Will monitor kidney function in a day or 2 Renal function remains stable Constipation Continue bowel regimen Minimize narcotics as able Resolved Atrial fibrillation: Subtherapeutic INR due to noncompliance Continue metoprolol Continue Coumadin for anticoagulation Monitor INR 1.9 today Increased Coumadin to 5 mg today Monitor INR and adjust Coumadin dose tomorrow if needed INR is 2.4 today- INR is 2.5 as of 08/03/2024 Rate is controlled and without any cardiac symptoms Acute on chronic heart failure with reduced ejection fraction: Recent echo with EF of 30 to 35%, BLE swelling noted, CXR with pulmonary edema at presentation. Likely secondary to medication noncompliance. Continue fluid restriction Monitor I's and O's, monitor and replete electrolytes. Monitor volume status closely Plan to resume lisinopril as able Transitioned IV Lasix to home oral diuretics Adult failure to thrive: Medication noncompliance Inability to take care of the self Patient has had numerous hospitalizations in regards to failure to thrive at home Dietary consult, case management consult. PT/OT Office of aging involved Other chronic medical conditions: Continue with/resume home meds as and when able. T2DM: Continue insulin. Has been refusing dietary restrictions, insulin. Prefers to be placed on regular diet. PVD: Status post left BKA amputation. Continue with home aspirin and Lipitor. Morbid obesity: BMI 46. Likely contributed to PVD and recurrent cellulitis. Counseling done. NINA on CPAP: Continue CPAP at bedtime. Cardiac defibrillator in situ: Noted Major depression disorder: Continue with duloxetine Lymphedema: Likely contributing to cellulitis. Follow-up with lymphedema clinic as an outpatient. Chronic pain syndrome: c/w oxy and lyrica DVT Px: Warfarin Subtherapeutic INR due to noncompliance INR is 3.9 today and will monitor INR is 4.0 and will hold Coumadin today CODE STATUS Full code Admission and Anticipated Discharge Date Admission Date: July 15, 2024 Subjective 08/02/2024 The patient was seen and examined in medical floor He has been feeling much better today and wants to have real food not the cardiac diet Denies any significant symptoms 08/03/2024 The patient was seen and examined in medical floor Remains stable and complains of weakness and tiredness He will have PT therapy with prosthesis and for further recommendation regarding disposition 08/04/2024 The patient was seen and examined in medical floor He remains stable and complains of ongoing weakness Denies any other distress 08/05/2024 The patient was seen and examined in medical floor He has been stable and denies any significant symptoms Awaiting placement 08/06/2024 The patient was seen and examined in medical floor He has been stable and denies any significant symptoms He has been waiting to be transferred to a facility 08/07/2024 The patient was seen and examined in medical floor He has been out of bed on a chair and doing fine Denies any significant symptoms today 08/08/2024 The patient was seen and examined in medical floor He has been very noncompliant and wants to drink more fluid he has been very non compliant and wants to drink more fluid He does not want to take his medications if he is not getting any more fluid Review of Systems Review of Systems: All systems reviewed and are unremarkable except as noted below Physical Exam Physical Exam: Out of bed to chair and manipulating the chair to keep the leg elevated Constitutional: well developed, well nourished, + ill appearing and + morbidly obese Eyes: PERRL, conjunctivae normal, anicteric sclerae ENMT: external ear and nose normal, oropharynx normal Neck: trachea midline, no thyromegaly Respiratory: no respiratory distress Auscultation: lungs clear to auscultation bilaterally Cardiovascular: Rate/Rhythm: regular rate and regular rhythm; not tachycardic Extremities: + edema ( bilateral leg edema with lymphedema and cellulitis involving right leg) Gastrointestinal (Abdomen): Inspection/Auscultation: normal bowel sounds; abdomen not distended Percussion/Palpation: abdomen soft; abdomen nontender Neurologic: normal touch/pain/proprioception and moves all extremities; no focal motor deficits Lymphatic: no cervical or axillary lymphadenopathy Results & Data Results & Data Vital Signs (Past 12 Hours) Vital Signs Temp Pulse Resp BP Pulse Ox O2 Del Method 08/08/24 07:54 Room Air 08/08/24 07:33 36.8 C 82 14 135/85 97 Room Air Laboratory Results Shortness Medications Administered Current Inpatient Medications Acetaminophen (Acetaminophen 500 Mg Tab) 500 mg PO Q6H PRN PRN Reason: fever/pain Stop: 08/14/24 21:36 Last Admin: 08/04/24 19:33 Dose: 500 mg Aspirin (Aspirin 81 Mg Ectab) 81 mg PO DAILY MATT Stop: 08/15/24 08:59 Last Admin: 08/08/24 10:01 Dose: 81 mg Atorvastatin Calcium (Atorvastatin 40 Mg Tab) 80 mg PO DAILY MATT Stop: 08/15/24 08:59 Last Admin: 08/08/24 10:04 Dose: 80 mg Bisacodyl (Bisacodyl 10 Mg Supp) 10 mg SD DAILY PRN PRN Reason: Constipation Stop: 08/28/24 15:47 Dextrose (Dextrose 50% 50 Ml Syringe) 25 - 50 ml IV UD PRN; Protocol PRN Reason: Hypoglycemia Protocol Stop: 08/14/24 23:39 Docusate Sodium (Docusate Sodium 100 Mg Cap) 100 mg PO BID [facility] Stop: 08/28/24 15:49 Last Admin: 08/08/24 10:00 Dose: 100 mg Duloxetine HCl (Duloxetine Hcl 30 Mg Cap) 30 mg PO QAM MATT Stop: 08/18/24 08:59 Last Admin: 08/08/24 10:05 Dose: 30 mg Ergocalciferol (Ergocalciferol 1250 Mcg (50,000 Units) Cap) 1,250 mcg PO Tu@09 00 MATT Stop: 08/18/24 08:59 Last Admin: 08/02/24 07:12 Dose: 1,250 mcg Ferrous Sulfate (Ferrous Sulfate 325 Mg Tab) 325 mg PO BID MATT Stop: 08/15/24 08:59 Last Admin: 08/08/24 10:06 Dose: 325 mg Glucagon (Glucagon For Inj 1 Mg Vial) 1 mg SQ UD PRN; Protocol PRN Reason: Hypoglycemia Protocol Stop: 08/14/24 23:39 Glucose (Glucose 40% Gel 15 Gm Tube) 15 - 30 gm PO UD PRN; Protocol PRN Reason: Hypoglycemia Protocol Stop: 08/14/24 23:39 Glucose (Glucose 10 Tab/Tube) 4 - 8 tab PO UD PRN; Protocol PRN Reason: Hypoglycemia Protocol Stop: 08/14/24 23:39 Promethazine HCl (Phenergan) 12.5 mg in 50.5 mls @ 202 mls/hr IV Q6H PRN PRN Reason: Nausea And Vomiting Stop: 08/14/24 21:36 Last Infusion: 07/30/24 11:09 Dose: Infused Insulin Aspart (Insulin Aspart Per Unit Charge) 0 units SC ACHS MATT Stop: 08/14/24 23:39 Last Admin: 08/08/24 12:35 Dose: 16 units Insulin Glargine (Lantus Per Unit Charge) 14 units SC DAILY@1130 [facility] Stop: 09/06/24 11:29 Last Admin: 08/08/24 12:35 Dose: 14 units Insulin Glargine (Lantus Per Unit Charge) 10 units SQ HS [facility] Stop: 09/07/24 20:59 Lactic Acid (Ammonium Lactate 12% Lotion 225 Gm Btl) 1 gm EXT DAILY [facility] Stop: 08/15/24 08:59 Last Admin: 08/08/24 10:05 Dose: 1 gm Lactobacillus Acidophilus (Advanced Probiotic 625 Mg Capsule) 1,250 mg PO DAILY [facility] Stop: 08/15/24 14:14 Last Admin: 08/08/24 10:01 Dose: 1,250 mg Levothyroxine Sodium (Levothyroxine Sodium 88 Mcg Tablet) 88 mcg PO DAILYBB [facility] Stop: 08/15/24 06:29 Last Admin: 08/08/24 05:13 Dose: 88 mcg Lisinopril (Lisinopril 5 Mg Tab) 5 mg PO DAILY MATT Stop: 08/15/24 08:59 Last Admin: 07/19/24 08:28 Dose: 5 mg Loratadine (Loratadine 10 Mg Tab) 10 mg PO DAILY [facility] Stop: 08/15/24 08:59 Last Admin: 08/08/24 10:01 Dose: 10 mg Metoprolol Succinate (Metoprolol Succ 50mg Ext Rel Tab) 150 mg PO QAM [facility] Stop: 08/15/24 08:59 Last Admin: 08/08/24 10:05 Dose: 150 mg Miscellaneous (Carbohydrates For Hypoglycemia ) 15 - 30 gm PO UD PRN PRN Reason: Hypoglycemia Protocol Stop: 08/14/24 23:39 Miscellaneous Information (Pharmacy Glycemic Mgmt Consult) 1 each N/A UD PRN; Protocol PRN Reason: Consult Stop: 08/25/24 11:30 Multivitamins/Minerals (Cerovite Adv Formula Tab) 1 tab PO DAILY [facility] Stop: 08/15/24 08:59 Last Admin: 08/08/24 10:01 Dose: 1 tab Nystatin/Triamcinolone Acetonide (Nystatin/Triamcin Cr 15 Gm Tube) 1 appln EXT BID [facility] Stop: 08/30/24 20:59 Last Admin: 08/08/24 10:07 Dose: 1 appln Ondansetron HCl (Ondansetron Inj 2 Mg/Ml 2 Ml Vial) 4 mg IV Q6H PRN PRN Reason: Nausea And Vomiting Stop: 08/20/24 14:32 Last Admin: 08/08/24 02:24 Dose: 4 mg Oxycodone HCl (Oxycodone Hcl Ir 5 Mg Tab (Immediate Release)) 5 mg PO Q4H PRN PRN Reason: Pain Stop: 08/15/24 00:08 Last Admin: 08/08/24 10:12 Dose: 5 mg Pantoprazole Sodium (Pantoprazole 40 Mg Tab) 40 mg PO BID [facility] Stop: 08/15/24 08:59 Last Admin: 08/08/24 10:04 Dose: 40 mg Polyethylene Glycol (Polyethylene (Miralax) 17 Gm Pack) 17 gm PO DAILY [facility] Stop: 08/28/24 15:59 Last Admin: 08/08/24 10:00 Dose: 17 gm Potassium Chloride (Potassium Chloride Crtab 20 Meq Tabcr) 20 meq PO BID [facility] Stop: 08/15/24 20:59 Last Admin: 08/08/24 10:03 Dose: 20 meq Pregabalin (Pregabalin 75 Mg Cap) 75 mg PO TID [facility] Stop: 08/15/24 08:59 Last Admin: 08/08/24 10:01 Dose: 75 mg Spironolactone (Spironolactone 25 Mg Tab) 25 mg PO DAILY [facility] Stop: 08/16/24 08:59 Last Admin: 08/08/24 10:03 Dose: 25 mg Torsemide (Torsemide 20 Mg Tab) 40 mg PO QAM [facility] Stop: 08/15/24 08:59 Last Admin: 08/08/24 10:06 Dose: 40 mg Torsemide (Torsemide 20 Mg Tab) 20 mg PO DAILY@1700 [facility] Stop: 08/15/24 16:59 Last Admin: 08/07/24 17:03 Dose: 20 mg Warfarin Sodium (Warfarin Sod 4 Mg Tab) 4 mg PO DAILY@1600 [facility] Stop: 08/31/24 15:59 Last Admin: 08/06/24 17:03 Dose: 4 mg
[2024-08-08] MEDS: LANTUS PER UNIT CHARGE SQ SCH (20:41)
[2024-08-09 07:21] LABS: INR 3.4 (0.9-1.1); Prothrombin Time 33.1 Seconds (9.0-12.0)
--- NOTE | 2024-08-09 11:51 | Hospitalist Progress Note ---
Date of Service August 09, 2024 Assessment & Plan (1) Cellulitis of right leg: Plan 58-year-old man with PMH of HFrEF [EF 30 to 35%, TTE 2024] sp ICD, CAD, VT sp ablation, A-fib/DVT on Coumadin, HTN, HLD, pHTN,/OHS on BPAP, bronchial asthma, T2DM on insulin pump, hypothyroidism, CKD [baseline creatinine of 1.2-1.3], chronic anemia [baseline hemoglobin of 10], mood disorder, RLE osteomyelitis sp surgery, left foot osteomyelitis sp left BKA, morbid obesity who was recently admitted 05/24/2024 to 07/01/2024 for decompensated heart failure/LLE cellulitis and infected chronic right foot ulcer. Wound cultures were negative and patient completed cefepime and meropenem course. There was unsuccessful efforts for rehab/permanent placement at the time and patient was discharged home. Patient was admitted at [facility] July 02 to day after [facility] discharge as patient was found by home health nurse living in deplorable condition. Patient was discharged from the hospital despite social problems specialist notifying hospital providers that patient was not safe going home. Per patient's home health nursing reports, patient has trouble getting food/patient confused about medication/patient worried about bilateral painful leg swelling with intermittent bloody drainage/patient fell off of his chair and had to call [facility] twice to get him up/patient incapable of transfers and is with bowel incontinence.Patient reports having sore throat/myalgia/na usea/loose stools for last 2 to 3 days [employer]PER[employer]. 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 BLE cellulitis Underlying RLE osteomyelitis Medical noncompliance No sepsis at presentation. Patient with recurrent lower extremity cellulitis likely secondary to noncompliance with medications/diet and patient's functional disability. Admitting imaging: CXR with mild pulmonary edema. C-spine CT and head CT with no acute finding. XR Left lower extremity with no acute bony abnormality, left below-knee amputation noted. Right foot x-ray and right foot CT - suggestive of extensive osteomyelitis. No pathologic fracture noted. CT right lower extremity - suggestive of cellulitis. CT Left knee and BKA stump - suggestive of cellulitis. --Doxycycline 07/16 and cefepime 07/16 ---> ID evaluated 07/18, recs are iv cef epime 2g q8h, linezolid 600 mg q12h EOT 07/30/2024, recommends amputation of RLE. Linezolid and duloxetine has severe interaction of serotonin syndrome, d/w ID 07/18, plan to decrease dose of duloxetine to half and c/w linezolid Podiatry evaluated, recs are RLE amputation vs palliative care. --Patient currently refuses amputation and does not believe he has osteomyelitis despite explaining in detail --Wound culture growing Klebsiella pneumoniae ESBL, Alcaligenes faecalis --Blood cultures negative -- Continue local wound care --Change IV cefepime to ertapenem--completed antibiotic course Continue Zyvox--completed antibiotic course Discussed with infectious disease on 07/27/2024: Recommends to complete antibiotic course on 07/30/2024 as previously planned. Believes antibiotics will not heal his infection. Recommends amputation if patient agrees Patient prefers to follow-up with his primary auto tech Dr. 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 He does not believe that his foot is infected despite explaining in detail Needs to follow-up with wound care on discharge as well Consulted palliative care to address goals of care Poor prognosis due to noncompliance Case management to help with discharge planning Office of aging is involved Podiatry reexamined the patient today and discussed that right lower extremity wound would not heal likely and would need amputation. Patient not interested in amputation currently. Placement will be difficult given patient's disability and inability to care for self Medically stable and symptomatically much better She will have PT and OT evaluation with the prosthesis and then await further recommendation Remains stable with some weakness being in the bed for so long Has had physical therapy and recommended SNF- awaiting acceptance He has been waiting to go to SNF. 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 Remains stable and for the first time he is out of bed on a chair without any significant symptomsawaiting placement Very noncompliant does not want to follow dietary advice and/or fluid restriction, Remains noncompliant and not been following fluid restriction- he is aware about the consequences of having more fluid and eventually getting shortness of breath with fluid overload Still awaiting placement Acute kidney injury on CKD III: Volume overload status Creatinine 1.4 Monitor renal function and avoid nephrotoxic agents as able Plan to resume lisinopril tomorrow if renal function stable Blood pressure remains on the lower side and will not restart lisinopril today we will monitor PRP Will monitor kidney function in a day or 2 Renal function remains stable Will get Constipation Continue bowel regimen Minimize narcotics as able Resolved Atrial fibrillation: Subtherapeutic INR due to noncompliance Continue metoprolol Continue Coumadin for anticoagulation Monitor INR 1.9 today Increased Coumadin to 5 mg today Monitor INR and adjust Coumadin dose tomorrow if needed INR is 2.4 today- INR is 2.5 as of 08/03/2024 Rate is controlled and without any cardiac symptoms Acute on chronic heart failure with reduced ejection fraction: Recent echo with EF of 30 to 35%, BLE swelling noted, CXR with pulmonary edema at presentation. Likely secondary to medication noncompliance. Continue fluid restriction Monitor I's and O's, monitor and replete electrolytes. Monitor volume status closely Plan to resume lisinopril as able Transitioned IV Lasix to home oral diuretics Adult failure to thrive: Medication noncompliance Inability to take care of the self Patient has had numerous hospitalizations in regards to failure to thrive at home Dietary consult, case management consult. PT/OT Office of aging involved Other chronic medical conditions: Continue with/resume home meds as and when able. T2DM: Continue insulin. Has been refusing dietary restrictions, insulin. Prefers to be placed on regular diet. PVD: Status post left BKA amputation. Continue with home aspirin and Lipitor. Morbid obesity: BMI 46. Likely contributed to PVD and recurrent cellulitis. Counseling done. NINA on CPAP: Continue CPAP at bedtime. Cardiac defibrillator in situ: Noted Major depression disorder: Continue with duloxetine Lymphedema: Likely contributing to cellulitis. Follow-up with lymphedema clinic as an outpatient. Chronic pain syndrome: c/w oxy and lyrica DVT Px: Warfarin Subtherapeutic INR due to noncompliance INR is 3.9 today and will monitor INR is 4.0 and will hold Coumadin today CODE STATUS Full code Admission and Anticipated Discharge Date Admission Date: July 15, 2024 Subjective 08/02/2024 The patient was seen and examined in medical floor He has been feeling much better today and wants to have real food not the cardiac diet Denies any significant symptoms 08/03/2024 The patient was seen and examined in medical floor Remains stable and complains of weakness and tiredness He will have PT therapy with prosthesis and for further recommendation regarding disposition 08/04/2024 The patient was seen and examined in medical floor He remains stable and complains of ongoing weakness Denies any other distress 08/05/2024 The patient was seen and examined in medical floor He has been stable and denies any significant symptoms Awaiting placement 08/06/2024 The patient was seen and examined in medical floor He has been stable and denies any significant symptoms He has been waiting to be transferred to a facility 08/07/2024 The patient was seen and examined in medical floor He has been out of bed on a chair and doing fine Denies any significant symptoms today 08/08/2024 The patient was seen and examined in medical floor He has been very noncompliant and wants to drink more fluid he has been very noncompliant and wants to drink more fluid He does not want to take his medications if he is not getting any more fluid 08/09/2024 The patient was seen and examined in medical floor He has been very noncompliant and not been following fluid restriction diet Remains medically stable and denies any significant symptoms Review of Systems Review of Systems: All systems reviewed and are unremarkable except as noted below Physical Exam Physical Exam: Out of bed to chair and manipulating the chair to keep the leg elevated Constitutional: well developed, well nourished, + ill appearing and + morbidly obese Eyes: PERRL, conjunctivae normal, anicteric sclerae ENMT: external ear and nose normal, oropharynx normal Neck: trachea midline, no thyromegaly Respiratory: no respiratory distress Auscultation: lungs clear to auscultation bilaterally Cardiovascular: Rate/Rhythm: regular rate and regular rhythm; not tachycardic Extremities: + edema ( bilateral leg edema with lymphedema and cellulitis involving right leg) Gastrointestinal (Abdomen): Inspection/Auscultation: normal bowel sounds; abdomen not distended Percussion/Palpation: abdomen soft; abdomen nontender Neurologic: normal touch/pain/proprioception and moves all extremities; no focal motor deficits Lymphatic: no cervical or axillary lymphadenopathy Results & Data Results & Data Vital Signs (Past 12 Hours) Vital Signs Temp Pulse Resp BP Pulse Ox O2 Del Method 08/09/24 08:08 Room Air 08/09/24 07:10 36.8 C 86 16 130/71 95 Room Air Diagnostic Findings Current Inpatient Medications Acetaminophen (Acetaminophen 500 Mg Tab) 500 mg PO Q6H PRN PRN Reason: fever/pain Stop: 08/14/24 21:36 Last Admin: 08/04/24 19:33 Dose: 500 mg Aspirin (Aspirin 81 Mg Ectab) 81 mg PO DAILY MATT Stop: 08/15/24 08:59 Last Admin: 08/09/24 09:07 Dose: 81 mg Atorvastatin Calcium (Atorvastatin 40 Mg Tab) 80 mg PO DAILY MATT Stop: 08/15/24 08:59 Last Admin: 08/09/24 09:06 Dose: 80 mg Bisacodyl (Bisacodyl 10 Mg Supp) 10 mg AR DAILY PRN PRN Reason: Constipation Stop: 08/28/24 15:47 Dextrose (Dextrose 50% 50 Ml Syringe) 25 - 50 ml IV UD PRN; Protocol PRN Reason: Hypoglycemia Protocol Stop: 08/14/24 23:39 Docusate Sodium (Docusate Sodium 100 Mg Cap) 100 mg PO BID [facility] Stop: 08/28/24 15:49 Last Admin: 08/09/24 09:12 Dose: 100 mg Duloxetine HCl (Duloxetine Hcl 30 Mg Cap) 30 mg PO QAM MATT Stop: 08/18/24 08:59 Last Admin: 08/09/24 09:06 Dose: 30 mg Ergocalciferol (Ergocalciferol 1250 Mcg (50,000 Units) Cap) 1,250 mcg PO Tu@0900 MATT Stop: 08/18/24 08:59 Last Admin: 08/09/24 09:05 Dose: 1,250 mcg Ferrous Sulfate (Ferrous Sulfate 325 Mg Tab) 325 mg PO BID MATT Stop: 08/15/24 08:59 Last Admin: 08/09/24 09:08 Dose: 325 mg Glucagon (Glucagon For Inj 1 Mg Vial) 1 mg SQ UD PRN; Protocol PRN Reason: Hypoglycemia Protocol Stop: 08/14/24 23:39 Glucose (Glucose 40% Gel 15 Gm Tube) 15 - 30 gm PO UD PRN; Protocol PRN Reason: Hypoglycemia Protocol Stop: 08/14/24 23:39 Glucose (Glucose 10 Tab/Tube) 4 - 8 tab PO UD PRN; Protocol PRN Reason: Hypoglycemia Protocol Stop: 08/14/24 23:39 Promethazine HCl (Phenergan) 12.5 mg in 50.5 mls @ 202 mls/hr IV Q6H PRN PRN Reason: Nausea And Vomiting Stop: 08/14/24 21:36 Last Infusion: 07/30/24 11:09 Dose: Infused Insulin Aspart (Insulin Aspart Per Unit Charge) 0 units SC ACHS [facility] Stop: 08/14/24 23:39 Last Admin: 08/09/24 09:12 Dose: 14 units Insulin Glargine (Lantus Per Unit Charge) 14 units SC DAILY@1130 [facility] Stop: 09/06/24 11:29 Last Admin: 08/08/24 12:35 Dose: 14 units Insulin Glargine (Lantus Per Unit Charge) 10 units SQ HS [facility] Stop: 09/07/24 20:59 Last Admin: 08/08/24 20:41 Dose: 10 units Lactic Acid (Ammonium Lactate 12% Lotion 225 Gm Btl) 1 gm EXT DAILY [facility] Stop: 08/15/24 08:59 Last Admin: 08/09/24 09:04 Dose: 1 gm Lactobacillus Acidophilus (Advanced Probiotic 625 Mg Capsule) 1,250 mg PO DAILY [facility] Stop: 08/15/24 14:14 Last Admin: 08/09/24 09:04 Dose: 1,250 mg Levothyroxine Sodium (Levothyroxine Sodium 88 Mcg Tablet) 88 mcg PO DAILYBB [facility] Stop: 08/15/24 06:29 Last Admin: 08/09/24 05:06 Dose: 88 mcg Lisinopril (Lisinopril 5 Mg Tab) 5 mg PO DAILY [facility] Stop: 08/15/24 08:59 Last Admin: 07/19/24 08:28 Dose: 5 mg Loratadine (Loratadine 10 Mg Tab) 10 mg PO DAILY [facility] Stop: 08/15/24 08:59 Last Admin: 08/09/24 09:04 Dose: 10 mg Metoprolol Succinate (Metoprolol Succ 50mg Ext Rel Tab) 150 mg PO QAM [facility] Stop: 08/15/24 08:59 Last Admin: 08/09/24 09:05 Dose: 150 mg Miscellaneous (Carbohydrates For Hypoglycemia ) 15 - 30 gm PO UD PRN PRN Reason: Hypoglycemia Protocol Stop: 08/14/24 23:39 Miscellaneous Information (Pharmacy Glycemic Mgmt Consult) 1 each N/A UD PRN; Protocol PRN Reason: Consult Stop: 08/25/24 11:30 Multivitamins/Minerals (Cerovite Adv Formula Tab) 1 tab PO DAILY MATT Stop: 08/15/24 08:59 Last Admin: 08/09/24 09:05 Dose: 1 tab Nystatin/Triamcinolone Acetonide (Nystatin/Triamcin Cr 15 Gm Tube) 1 appln EXT BID MATT Stop: 08/30/24 20:59 Last Admin: 08/09/24 09:05 Dose: 1 appln Ondansetron HCl (Ondansetron Inj 2 Mg/Ml 2 Ml Vial) 4 mg IV Q6H PRN PRN Reason: Nausea And Vomiting Stop: 08/20/24 14:32 Last Admin: 08/08/24 02:24 Dose: 4 mg Oxycodone HCl (Oxycodone Hcl Ir 5 Mg Tab (Immediate Release)) 5 mg PO Q4H PRN PRN Reason: Pain Stop: 08/15/24 00:08 Last Admin: 08/08/24 20:32 Dose: 5 mg Pantoprazole Sodium (Pantoprazole 40 Mg Tab) 40 mg PO BID MATT Stop: 08/15/24 08:59 Last Admin: 08/09/24 09:07 Dose: 40 mg Polyethylene Glycol (Polyethylene (Miralax) 17 Gm Pack) 17 gm PO DAILY MATT Stop: 08/28/24 15:59 Last Admin: 08/09/24 09:08 Dose: Not Given Potassium Chloride (Potassium Chloride Crtab 20 Meq Tabcr) 20 meq PO BID MATT Stop: 08/15/24 20:59 Last Admin: 08/09/24 09:14 Dose: 20 meq Pregabalin (Pregabalin 75 Mg Cap) 75 mg PO TID MATT Stop: 08/15/24 08:59 Last Admin: 08/09/24 09:12 Dose: 75 mg Spironolactone (Spironolactone 25 Mg Tab) 25 mg PO DAILY MATT Stop: 08/16/24 08:59 Last Admin: 08/09/24 09:07 Dose: 25 mg Torsemide (Torsemide 20 Mg Tab) 40 mg PO QAM MATT Stop: 08/15/24 08:59 Last Admin: 08/09/24 09:07 Dose: 40 mg Torsemide (Torsemide 20 Mg Tab) 20 mg PO DAILY@1700 MATT Stop: 08/15/24 16:59 Last Admin: 08/08/24 17:07 Dose: 20 mg Warfarin Sodium (Warfarin Sod 4 Mg Tab) 4 mg PO DAILY@1600 MATT Stop: 08/31/24 15:59 Last Admin: 08/06/24 17:03 Dose: 4 mg
[2024-08-10 06:52] LABS: INR 2.8 (0.9-1.1); Prothrombin Time 27.9 Seconds (9.0-12.0)
[2024-08-10 07:41] LABS: Calcium 9.1 mg/dl (8.6-10.3); Potassium 3.9 mmol/L (3.5-5.1)
[2024-08-10 07:46] LABS: BUN Creatinine Ratio 29.6 (10-20); Creatinine Clr Calc Pharmacy 89.1 ml/min
[2024-08-10] MEDS: INSULIN ASPART PER UNIT CHARGE SC SCH (12:38)
--- NOTE | 2024-08-10 13:53 | Pharmacy Report ---
Pharmacy Glycemic Short Note 2 - Date of Service August 10, 2024 - Glycemic Short BSG Results (Last 24 hours): 08/09/24 08/09/24 08/10/24 16:07 20:13 05:53 Glucose 228 H POC Glucose 217 H 141 H 08/10/24 08/10/24 07:25 11:14 Glucose POC Glucose 200 H 296 H OUTPATIENT ANTIDIABETIC REGIMEN: * Lantus 12 units SQ BID * Novolog 10 units SQ AC * Januvia 50mg PO daily * HbA1c: 6.5% (05/25/24) ASSESSMENT: 08/10/24: * Patient received a total of 64 units of insulin yesterday (24 units were basal and 40 units were bolus). BSGs still above goal with meals. Lunch time BSG has been > 250mg/dL the last several days so will tighten the bolus insulin parameters with breakfast only. * Fasting BSG still elevated at 200mg/dL this morning. Will increase the HS Lantus. 08/08/24 * Patient received 58 units of insulin yesterday (10 units more than the previous day), BSGS rising with meals yesterday, tighten CR. * Fasting still elevated today, despite increase in basal yesterday, will wait to see if tighter CR fixes high blood sugars, if not, consider increasing basal tomorrow. 08/05/24: * BSGS [phone] mg/dL yesterday * Basal adjusted to 20 units/day (12 @ 1130, 8 @ HS), fasting 199 mg/dL- will continue with same today * Prandial BSGs improving, continue current novolog parameters for now. 08/01/24: * Mr Lyle received 38 units of insulin yesterday (20 of which were basal), BSGs at goal. * No changes in insulin regimen at this time. * ID recommends amputation if patient agrees, patient currently denies need. 07/29/24: * Mr Lyle received 65 units of insulin yesterday (20 of which were basal) and BSGs were closer to goal. * Morning Lantus dose moved to lunchtime, as pt has been more willing to take the dose at that time. * Pt still intermittently hyperglycemic throughout the day, but will hold off on tightening Novolog parameters at this time, to minimize the risk of hypoglycemia and reduce the likelihood of declined doses. * Other than some adjustments in timing, no other changes to regimen today. 07/28/24: * Patient received 44 units of insulin (20 units of basal and 24 units of prandial/correctional bolus) * Of note: patient is intermittently refusing insulin * Fasting blood glucose of 127 mg/dL this morning - will plan to continue ~20 units of basal or less based on scale this evening * Remains on ertapenem for treatment of RLE cellulitis 07/26/24: * Mr Lyle was admitted on 07/15/24 with cellulitis/possible osteo. * Pharmacy was consulted today to help with glycemic management. * Lantus dose will be increased this evening, as it appears that fasting BSGs have been above goal. * Novolog parameters have been adjusted to better match patient's home use, and also based on data from past admissions. * Pharmacy will continue to follow and adjust regimen as indicated. PLAN FOR INPATIENT GLYCEMIC CONTROL: * Hold outpatient diabetes medications * Basal insulin * Lantus 14 units SQ daily with lunch * Lantus 12 units SQ HS * Bolus insulin * NovoLog per scale ACHS or Q6hrs while NPO * Goal Range: Low 110 mg/dL - High 140 mg/dL * Correction Factor: breakfast-- 25 mg/dL/unit; lunch, supper, and HS--30 mg/dL/unit * Nutritional / Prandial insulin per carb ratio of 1 unit per: breakfast--4 grams CHO consumed; lunch, supper, and HS-- 6 grams CHO consumed
--- NOTE | 2024-08-10 17:11 | Hospitalist Progress Note ---
Date of Service August 10, 2024 Assessment & Plan (1) Cellulitis of right leg: Plan 58-year-old man with PMH of HFrEF [EF 30 to 35%, TTE 2024] sp ICD, CAD, VT sp ablation, A-fib/DVT on Coumadin, HTN, HLD, pHTN,/OHS on BPAP, bronchial asthma, T2DM on insulin pump, hypothyroidism, CKD [baseline creatinine of 1.2-1.3], chronic anemia [baseline hemoglobin of 10], mood disorder, RLE osteomyelitis sp surgery, left foot osteomyelitis sp left BKA, morbid obesity who was recently admitted 05/24/2024 to 07/01/2024 for decompensated heart failure/LLE cellulitis and infected chronic right foot ulcer. Wound cultures were negative and patient completed cefepime and meropenem course. There was unsuccessful efforts for rehab/permanent placement at the time and patient was discharged home. Patient was admitted at [facility] July 02 to day after [facility] discharge as patient was found by home health nurse living in deplorable condition. Patient was discharged from the hospital despite social work nurse notifying hospital providers that patient was not safe going home. 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 BLE cellulitis Underlying RLE osteomyelitis Medical noncompliance No sepsis at presentation. Patient with recurrent lower extremity cellulitis likely secondary to noncompliance with medications/diet and patient's functional disability. Admitting imaging: CXR with mild pulmonary edema. C-spine CT and head CT with no acute finding. XR Left lower extremity with no acute bony abnormality, left below-knee amputation noted. Right foot x-ray and right foot CT - suggestive of extensive osteomyelitis. No pathologic fracture noted. CT right lower extremity - suggestive of cellulitis. CT Left knee and BKA stump - suggestive of cellulitis. --Doxycycline 07/16 and cefepime 07/16 ---> ID evaluated 07/18, recs are iv cefepime 2g q8h, linezolid 600 mg q12h EOT 07/30/2024, recommends amputation of RLE. Linezolid and duloxetine has severe interaction of serotonin syndrome, d/w ID 07/18, plan to decrease dose of duloxetine to half and c/w linezolid Podiatry evaluated, recs are RLE amputation vs palliative care. --Patient currently refuses amputation and does not believe he has osteomyelitis despite explaining in detail --Wound culture growing Klebsiella pneumoniae ESBL, Alcaligenes faecalis --Blood cultures negative -- Continue local wound care --Change IV cefepime to ertapenem--completed antibiotic course Continue Zyvox--completed antibiotic course Discussed with infectious disease on 07/27/2024: Recommends to complete antibiotic course on 07/30/2024 as previously planned. Believes antibiotics will not heal his infection. Recommends amputation if patient agrees Patient prefers to follow-up with his primary ribber Dr. 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 He does not believe that his foot is infected despite explaining in detail Needs to follow-up with wound care on discharge as well Consulted palliative care to address goals of care Poor prognosis due to noncompliance Case management to help with discharge planning Office of aging is involved Waiting for SNF placement Acute kidney injury on CKD III: Volume overload status Creatinine improved to 1.3 Monitor renal function avoid nephrotoxic agents as able Constipation Continue bowel regimen Minimize narcotics as able Resolved Atrial fibrillation: Subtherapeutic INR due to noncompliance Continue metoprolol Continue Coumadin for anticoagulation Monitor INR 2.8 Acute on chronic heart failure with reduced ejection fraction: Recent echo with EF of 30 to 35%, BLE swelling noted, CXR with pulmonary edema at presentation. Likely secondary to medication noncompliance. Continue fluid restriction Monitor I's and O's, monitor and replete electrolytes. Monitor volume status closely Plan to resume lisinopril as able Transitioned IV Lasix to home oral diuretics Continue on torsemide 40 mg daily, Aldactone 25 mg daily Adult failure to thrive: Medication noncompliance Inability to take care of the self Patient has had numerous hospitalizations in regards to failure to thrive at home Dietary consult, case management consult. PT/OT Office of aging involved Other chronic medical conditions: Continue with/resume home meds as and when able. T2DM: Continue insulin. Has been refusing dietary restrictions, insulin PVD: Status post left BKA amputation. Continue with home aspirin and Lipitor. Morbid obesity: BMI 46. Likely contributed to PVD and recurrent cellulitis. Counseling done. NINA on CPAP: Continue CPAP at bedtime. Cardiac defibrillator in situ: Noted Major depression disorder: Continue with duloxetine Lymphedema: Likely contributing to cellulitis. Follow-up with lymphedema clinic as an outpatient. Chronic pain syndrome: c/w oxy and lyrica DVT Px: Warfarin CODE STATUS Full code Admission and Anticipated Discharge Date Admission Date: July 15, 2024 Subjective Patient is seen and examined at bedside Offers no complaints today Feels bored Waiting for placement Denies any chest pain, dyspnea, nausea, vomiting, abdominal pain Review of Systems Review of Systems: All systems reviewed & are unremarkable except as noted in Subjective Physical Exam Physical Exam: Physical Exam: Vitals signs as noted above General Appearance:Morbidly Obese, no apparent distress, ill-appearing Head: normocephalic, Atraumatic Eyes: normal inspection, EOMI Neck: supple, Trachea midline Respiratory/Chest: Normal breath sounds, CTA, No accessory muscle use Cardiovascular: Irregularly irregular, No murmur Abdomen/GI:Soft, Non tender, Bowel sounds present Extremities/Musculoskeletal:normal inspection, LE edema, lymphedema, Left BKA +dressing Neurologic/Psych:AAOX3, grossly no focal neurological deficits Skin: normal color, warm Results & Data Results & Data Vital Signs (Past 12 Hours) Vital Signs Temp Pulse Pulse Resp BP Pulse Ox O2 Del Method 08/10/24 14:49 36.6 C 73 16 135/81 99 Room Air 08/10/24 08:14 Room Air 08/10/24 07:29 35.9 C L 66 16 146/73 H 99 Room Air Laboratory Results [facility] 08/10/24 05:53 Sodium 138 Potassium 3.9 Chloride 101 Carbon Dioxide 28 BUN 40 H Creatinine 1.35 Glucose 228 H Calcium 9.1
[2024-08-10] MEDS: LANTUS PER UNIT CHARGE SQ SCH (20:51)
[2024-08-11 06:32] LABS: INR 3.4 (0.9-1.1); Prothrombin Time 32.9 Seconds (9.0-12.0)
[2024-08-11] MEDS: INSULIN ASPART PER UNIT CHARGE SC SCH (08:19)
--- NOTE | 2024-08-11 16:24 | Hospitalist Progress Note ---
Date of Service August 11, 2024 Assessment & Plan (1) Cellulitis of right leg: Plan 58-year-old man with PMH of HFrEF [EF 30 to 35%, TTE 2024] sp ICD, CAD, VT sp ablation, A-fib/DVT on Coumadin, HTN, HLD, pHTN,/OHS on BPAP, bronchial asthma, T2DM on insulin pump, hypothyroidism, CKD [baseline creatinine of 1.2-1.3], chronic anemia [baseline hemoglobin of 10], mood disorder, RLE osteomyelitis sp surgery, left foot osteomyelitis sp left BKA, morbid obesity who was recently admitted 05/24/2024 to 07/01/2024 for decompensated heart failure/LLE cellulitis and infected chronic right foot ulcer. Wound cultures were negative and patient completed cefepime and meropenem course. There was unsuccessful efforts for rehab/permanent placement at the time and patient was discharged home. Patient was admitted at [facility] July 02 to day after [facility] discharge as patient was found by home health nurse living in deplorable condition. Patient was discharged from the hospital despite foster care social worker notifying hospital providers that patient was not safe going home. 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 BLE cellulitis Underlying RLE osteomyelitis Medical noncompliance No sepsis at presentation. Patient with recurrent lower extremity cellulitis likely secondary to noncompliance with medications/diet and patient's functional disability. Admitting imaging: CXR with mild pulmonary edema. C-spine CT and head CT with no acute finding. XR Left lower extremity with no acute bony abnormality, left below-knee amputation noted. Right foot x-ray and right foot CT - suggestive of extensive osteomyelitis. No pathologic fracture noted. CT right lower extremity - suggestive of cellulitis. CT Left knee and BKA stump - suggestive of cellulitis. --Doxycycline 07/16 and cefepime 07/16 ---> ID evaluated 07/18, recs are iv cefepime 2g q8h, linezolid 600 mg q12h EOT 07/30/2024, recommends amputation of RLE. Linezolid and duloxetine has severe interaction of serotonin syndrome, d/w ID 07/18, plan to decrease dose of duloxetine to half and c/w linezolid Podiatry evaluated, recs are RLE amputation vs palliative care. --Patient currently refuses amputation and does not believe he has osteomyelitis despite explaining in detail --Wound culture growing Klebsiella pneumoniae ESBL, Alcaligenes faecalis --Blood cultures negative -- Continue local wound care --Change IV cefepime to ertapenem--completed antibiotic course Continue Zyvox--completed antibiotic course Discussed with infectious disease on 07/27/2024: Recommends to complete antibiotic course on 07/30/2024 as previously planned. Believes antibiotics will not heal his infection. 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 He does not believe that his foot is infected despite explaining in detail Needs to follow-up with wound care on discharge as well Consulted palliative care to address goals of care Poor prognosis due to noncompliance Office of aging is involved Waiting for placement. Case management on board Will need follow-up with podiatry on discharge Acute kidney injury on CKD III: Volume overload status Creatinine improved to 1.3 Monitor renal function avoid nephrotoxic agents as able Constipation Continue bowel regimen Minimize narcotics as able Resolved Atrial fibrillation: Supratherapeutic INR Continue metoprolol On Coumadin for anticoagulation Monitor INR 3.4 today Hold Coumadin today Acute on chronic heart failure with reduced ejection fraction: Recent echo with EF of 30 to 35%, BLE swelling noted, CXR with pulmonary edema at presentation. Likely secondary to medication noncompliance. Monitor I's and O's, monitor and replete electrolytes. Monitor volume status closely Plan to resume lisinopril as able Transitioned IV Lasix to home oral diuretics Continue on torsemide 40 mg daily, Aldactone 25 mg daily Patient refuses to be on fluid restriction Adult failure to thrive: Medication noncompliance Inability to take care of the self Patient has had numerous hospitalizations in regards to failure to thrive at home Dietary consult, case management consult. PT/OT Office of aging involved Other chronic medical conditions: Continue with/resume home meds as and when able. T2DM: Continue insulin. Has been refusing dietary restrictions, insulin PVD: Status post left BKA amputation. Continue with home aspirin and Lipitor. Morbid obesity: BMI 46. Likely contributed to PVD and recurrent cellulitis. Counseling done. NINA on CPAP: Continue CPAP at bedtime. Cardiac defibrillator in situ: Noted Major depression disorder: Continue with duloxetine Lymphedema: Likely contributing to cellulitis. Follow-up with lymphedema clinic as an outpatient. Chronic pain syndrome: c/w oxy and lyrica DVT Px: Warfarin CODE STATUS Full code Admission and Anticipated Discharge Date Admission Date: July 15, 2024 Subjective Patient is seen and examined at bedside Feels frustrated about fluid restriction wants to be discharged Denies any chest pain, dyspnea, nausea, vomiting, abdominal pain Review of Systems Review of Systems: All systems reviewed & are unremarkable except as noted in Subjective Physical Exam Physical Exam: Physical Exam: Vitals signs as noted above General Appearance:Morbidly Obese, no apparent distress, ill-appearing Head: normocephalic, Atraumatic Eyes: normal inspection, EOMI Neck: supple, Trachea midline Respiratory/Chest: Normal breath sounds, CTA, No accessory muscle use Cardiovascular: Irregularly irregular, No murmur Abdomen/GI:Soft, Non tender, Bowel sounds present Extremities/Musculoskeletal:normal inspection, LE edema, lymphedema, Left BKA + dressing Neurologic/Psych:AAOX3, grossly no focal neurological deficits Skin: normal color, warm Results & Data Results & Data Vital Signs (Past 12 Hours) Vital Signs Temp Pulse Resp BP Pulse Ox O2 Del Method 08/11/24 14:13 36.6 C 69 16 145/69 H 98 Room Air 08/11/24 08:03 Room Air 08/11/24 07:44 36.7 C 76 16 131/71 95 Room Air
[2024-08-11] MEDS: MICONAZOLE NITRATE POWDER 85 GM EXT PRN (20:16)
[2024-08-11] MEDS: KETOROLAC TROMETHAMINE 15 MG/ML VIAL IV ONE (21:41)
[2024-08-12 08:18] LABS: INR 3.1 (0.9-1.1); Prothrombin Time 30.3 Seconds (9.0-12.0)
--- NOTE | 2024-08-12 10:02 | Pharmacy Report ---
Pharmacy Glycemic Short Note 2 - Date of Service August 12, 2024 - Glycemic Short BSG Results (Last 24 hours): 08/11/24 08/11/24 08/11/24 11:21 16:38 20:04 POC Glucose 187 H 228 H 197 H 08/12/24 07:47 POC Glucose 211 H OUTPATIENT ANTIDIABETIC REGIMEN: * Lantus 12 units SQ BID * Novolog 10 units SQ AC * Januvia 50mg PO daily * HbA1c: 6.5% (05/25/24) ASSESSMENT: 08/12/24: * Ben received a total of 82 units of insulin yesterday (26 units were basal and 56 units were bolus). Despite increased insulin doses, his BSGs were all still above goal ([phone]/dL) yesterday. * Fasting BSG was 211mg/dL this morning. The HS Lantus dose has been increased again and bolus insulin parameters have been tightened. 08/10/24: * Patient received a total of 64 units of insulin yesterday (24 units were basal and 40 units were bolus). BSGs still above goal with meals. Lunch time BSG has been > 250mg/dL the last several days so will tighten the bolus insulin parameters with breakfast only. * Fasting BSG still elevated at 200mg/dL this morning. Will increase the HS Lantus. 08/08/24 * Patient received 58 units of insulin yesterday (10 units more than the previous day), BSGS rising with meals yesterday, tighten CR. * Fasting still elevated today, despite increase in basal yesterday, will wait to see if tighter CR fixes high blood sugars, if not, consider increasing basal tomorrow. 08/05/24: * BSGS [phone] mg/dL yesterday * Basal adjusted to 20 units/day (12 @ 1130, 8 @ HS), fasting 199 mg/dL- will continue with same today * Prandial BSGs improving, continue current novolog parameters for now. 08/01/24: * Mr Lyle received 38 units of insulin yesterday (20 of which were basal), BSGs at goal. * No changes in insulin regimen at this time. * ID recommends amputation if patient agrees, patient currently denies need. 07/29/24: * Mr Lyle received 65 units of insulin yesterday (20 of which were basal) and BSGs were closer to goal. * Morning Lantus dose moved to lunchtime, as pt has been more willing to take the dose at that time. * Pt still intermittently hyperglycemic throughout the day, but will hold off on tightening Novolog parameters at this time, to minimize the risk of hypoglycemia and reduce the likelihood of declined doses. * Other than some adjustments in timing, no other changes to regimen today. 07/28/24: * Patient received 44 units of insulin (20 units of basal and 24 units of prandial/correctional bolus) * Of note: patient is intermittently refusing insulin * Fasting blood glucose of 127 mg/dL this morning - will plan to continue ~20 units of basal or less based on scale this evening * Remains on ertapenem for treatment of RLE cellulitis 07/26/24: * Mr Lyle was admitted on 07/15/24 with cellulitis/possible osteo. * Pharmacy was consulted today to help with glycemic management. * Lantus dose will be increased this evening, as it appears that fasting BSGs have been above goal. * Novolog parameters have been adjusted to better match patient's home use, and also based on data from past admissions. * Pharmacy will continue to follow and adjust regimen as indicated. PLAN FOR INPATIENT GLYCEMIC CONTROL: * Hold outpatient diabetes medications * Basal insulin * Lantus 14 units SQ daily with lunch * Lantus 14 units SQ HS * Bolus insulin * NovoLog per scale ACHS or Q6hrs while NPO * Goal Range: Low 110 mg/dL - High 140 mg/dL * Correction Factor: 25 mg/dL/unit * Nutritional / Prandial insulin per carb ratio of 1 unit per: 5 grams CHO consumed
--- NOTE | 2024-08-12 10:54 | Psychiatric Consultation ---
Date of Consultation August 12, 2024 Impression / Recommendations Impression Diagnostically consistent with depression due to his medical conditions/deconditioning vs adjustment disorder with depressed mood due to prolonged hospitalization. No indication for making psychiatric medication dose adjustments at this time and he denies side effects. Acute risk of self-harm is low given denial of SI and very future-oriented. While he does have a history of minimizing/poor insight, he has no history of prior attempts and no recent statements of SI to suggest worsening mood or acute risk of self harm and thus his report feels trustworthy and reliable at this time. History of attention se eking behaviors and help seeking/help rejecting may suggest co-occurring personality disorder. His most recent statements of SI in May 2024 were contingent in nature which is also considered low risk. The operational definition of contingent suicidality is statements about suicide specifically linked to treatment decisions such as admission or discharge, medication choices, etc. Patients w ith contingent suicidality have a 0% 7 year risk of completed suicide as compared to an 11% risk of those with noncontingent suicidality. (Psychiatr Serv. 2002 Apr;53[1]:92-4 http://ps.psychiatryonli ne.org/doi/abs/10.1176/appi.ps.53.1.92?url_ver=Z39.88- 2003&rfr_id=luz maria%[email or web address]&rfr_dat=cr_pub%3Dpubmed ) The patient is psychiatrically stable for transfer to a fpc facility. There is no acute indication for inpatient psychiatric hospitalization as the patient is not suicidal or homicidal; there is no evidence of psychosis nor psychiatric symptoms interfering with their ability to care for their basic needs. Psychiatric follow-up care for this patient should include ongoing management of their medications. Overall, I spent a total of 60 minutes with this case including review of chart records, review of labwork, direct evaluation of the patient at bedside, counseling the patient, discussion of the patient with the Nurse and with the hospitalist provider, discussion with the psychiatric liason during clinical rounds and documentation in the electronic health record. 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 Psychiatry consulted for risk assessment due to past statements of suicide during previous hospitalization in May 2024. Chief Complaint "I've never had those thoughts". History of Present Illness Ben was admitted due to weakness and GI symptoms however he expresses frustration with extended hospitalization as he feels "imprisoned" here. Reviewed recommendation for physical rehab, he feels he is strong enough to manage at home on his own now but also acknowledges that he doesn't want to leave AMA as he needs some assistance with things such as transportation so he's reluctantly resigned to current treatment plan. Apparently made previous statement of contingent SI during admission in 05/2024 with psychiatry consult at that time by Dr. Sanchez on 06/23/2024 noting "On interview the patient reports wanting to go home. He endorses a fair mood, can maintain sleep, has fair appetite, fair concentration, chronically low energy, denies anxiety outside of the disposition situation, denies excess guilt, denies SI. He threatens SI if he cannot go home. He reports wanting the freedom to live independently." Only other known history of SI was in July 2021 when he was admitted for a three night stay to [facility] on a 302 commitment after sending texts to his daughter reporting SI. At that time he consistently denied SI and reported per admission note by Dr. Blancas on 08/08/2021 that: "He maintains that "I just wanted to get their attention."" in regards to his statements. He was very future-oriented throughout his stay and discharged home. During current admission since 07/15/2024 there have been no known statements of suicide. He was emotional yesterday per RN notes due to his frustration with not having tomato soup due to his dietary fluid restrictions. Today he reports ongoing frustration with hospitalization but adamantly denies SI. Tells me "I've never had those thoughts" and denies any prior attempts stating "how could I if I've never even had those thoughts". He denies any access to guns, citing his ex-'s PFA against him. Reports some depression due to his current situation stating "well yeah, I'm stuck here" but denies any hopelessness nor anhedonia. Watching TV and focused on future-oriented goal of returning home. Speaks to how he meets his needs at home i.e. orders groceries through [employer], claims he can clean and do laundry independently. Tells me he came here due to feeling "weak and sick" but now feels better and wants to discharge. Allergies Allergy/AdvReac Type Severity Reaction Status Date / Time benzonatate AdvReac Intermediate choking, Verified 07/15/24 19:22 gagging Home Medications Medication Instructions Recorded Confirmed Type acetaminophen 325 mg tablet 650 mg PO QID PRN Pain 02/08/24 07/15/24 History (Tylenol) aspirin 81 mg tablet,delayed 81 mg PO DAILY 02/08/24 07/15/24 History release atorvastatin 80 mg tablet 80 mg PO DAILY 02/08/24 07/15/24 History levothyroxine 88 mcg tablet 88 mcg PO DAILYBB 02/08/24 07/15/24 History oxycodone 10 mg tablet 10 mg PO Q8H PRN Pain, Severe 02/08/24 07/15/24 History spironolactone 25 mg tablet 25 mg PO DAILY 02/09/24 07/15/24 History triamcinolone acetonide 0.1 % 1 applic topical TID 02/09/24 07/15/24 History lotion ammonium lactate 12 % lotion 1 applic topical DAILY DRY SKIN ON 05/24/24 07/15/24 History LEGS betamethasone dipropionate 0.05 % 1 applic topical BID 05/24/24 07/15/24 History topical cream loratadine 10 mg tablet 10 mg PO DAILY 05/24/24 07/15/24 History torsemide 20 mg tablet 40 mg PO QAM 05/24/24 07/15/24 History duloxetine 60 mg capsule,delayed 60 mg PO QAM #30 caps 07/01/24 07/15/24 Rx release pregabalin 75 mg capsule (Lyrica) 75 mg PO TID #90 caps 07/01/24 07/15/24 Rx warfarin 2 mg tablet 2 mg PO DAILY@1600 #30 tabs 07/01/24 07/15/24 Rx insulin syringe,safety needle 0.5 #200 ea 07/08/24 07/15/24 Rx mL 29 gauge x 1/2" (BD SafetyGlide Insulin Syringe) dicyclomine 10 mg capsule 10 mg PO QID PRN ABD PAIN 07/15/24 07/15/24 History ergocalciferol (vitamin D2) 1,250 1,250 mcg PO WK 07/15/24 07/15/24 History mcg (50,000 unit) capsule (Vitamin D2) ferrous sulfate 325 mg (65 mg 325 mg PO BID 07/15/24 07/15/24 History iron) tablet insulin aspart (niacinamide) 10 unit subcut AC 07/15/24 07/15/24 History (U-100) 100 unit/mL subcutaneous solution insulin glargine 100 unit/mL (3 12 unit subcut BID 07/15/24 07/15/24 History mL) subcutaneous pen (Lantus Solostar U-100 Insulin) lisinopril 5 mg tablet 5 mg PO DAILY 07/15/24 07/15/24 History metoprolol succinate 50 mg 150 mg PO QAM 07/15/24 07/15/24 History tablet,extended release 24 hr multivit,tx with iron 27 1 tab PO DAILY 07/15/24 07/15/24 History nw-npvpzoc-xiavh acid 0.4 mg-minerals tablet nystatin 100,000 unit/gram topical 1 applic topical BID 07/15/24 07/15/24 History powder omeprazole 20 mg capsule,delayed 20 mg PO BID 07/15/24 07/15/24 History release potassium chloride 20 mEq 20 meq PO BID 07/15/24 07/15/24 History tablet,extended release(part/cryst) sitagliptin phosphate 50 mg tablet 50 mg PO DAILY 07/15/24 07/15/24 History (Januvia) torsemide 20 mg tablet 20 mg PO QPM 07/15/24 07/15/24 History Patient History Medical History Osteomyelitis of foot, right, acute Diabetes Acute on chronic combined systolic and diastolic CHF (congestive heart failure) Depression with suicidal ideation Acute osteomyelitis of left foot T2DM (type 2 diabetes mellitus) CHF (congestive heart failure) Acute on chronic combined systolic (congestive) and diastolic (congestive) heart failure Diabetic ulcer of right foot Sustained ventricular tachycardia Pneumonia due to COVID-19 virus SARS-CoV-2 positive Sepsis Cellulitis of left lower leg Diabetic ulcer of left heel associated with diabetes mellitus due to underlying condition, limited to breakdown of skin Acute on chronic renal failure Acute hypoxemic respiratory failure Sleep apnea BIPAP Rectal bleeding Depression Deformity of foot Adams fracture Base of left fifth metatarsal, nonhealing x years Diabetic ulcer of left foot associated with type 2 diabetes mellitus, with fat layer exposed Hx of sepsis 06/2019 Arthritis Venous stasis ulcer of right lower leg with edema of right lower leg Hypokalemia Bacteremia due to group B Streptococcus Sustained VT (ventricular tachycardia) GERD (gastroesophageal reflux disease) Hx of osteomyelitis Hx of myocardial infarction found on testing Asthma well controlled, 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 CKD (chronic kidney disease) stage 3, GFR 30-59 ml/min Surgical History History of esophagogastroduodenoscopy (EGD) H/O foot surgery LEFT FOOT ULCER DEBRIDEMENT H/O cardiac radiofrequency ablation OCTOBER 2019 ([facility]) AT [facility] History of cardiac cath V. tach -- no stent. 06/2019. unsure where it was done History of sinus surgery Hx of tonsillectomy History of colonoscopy Hx of amputation of lesser toe H/O shoulder surgery left Family History Sister Family history of diabetes mellitus 2 Grandmother (Maternal) Family history of diabetes mellitus Grandfather (Maternal) Family history of diabetes mellitus Father Cancer Mother Cancer Other No family history of adverse response to anesthesia Social History Smoking Status: Never smoker Second Hand Exposure: No; Do You Dip or Chew Tobacco: No; Hx Alcohol Use: No Hx Substance Use: No Preferred Language: Hungarian Communication Ability: Effective 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: No Beliefs That Will Affect Care: Spiritual marital status: Current Living Situation: Alone current occupational status: disabled How many Children do You have: 3 Feels Safe at Home: Yes Safety Concerns: Feels Safe At This Time Assistive Devices: Hospital Bed, Scooter/Electric Scooter, Walker and Wheelchair Physical Exam Psychiatric: Orientation: alert and oriented x 3 Apperance: appropriately dressed and + disheveled Eye Contact: + fair eye contact Motor Behavior: no abnormal motor movements Speech: normal rate/rhythm/volume of speech Affect: + constricted affect Mood: + depressed mood and + irritable mood Thought Process: + concrete thought process Thought Content: reality based without delusions Suicidal Thoughts: denies suicidal thoughts Homicidal Thoughts: denies homicidal thoughts Hallucinations: no auditory hallucinations and no visual hallucinations Cognition: recent memory grossly intact, remote memory grossly intact, attention grossly intact and language grossly intact Estimated Intelligence: consistent with education level Insight: + limited insight Judgment: + limited judgement Vital Signs (Past 24 Hours): Last Vital Signs Temp 36.4 C L 08/12/24 07:19 Pulse 62 08/12/24 07:19 Resp 16 08/12/24 07:19 BP 118/75 08/12/24 07:19 Pulse Ox 97 08/12/24 07:19 O2 Del Method Room Air 08/12/24 07:56 O2 Flow Rate 0 07/17/24 11:23 Results & Data (PSY) Medications Administered Acetaminophen (Acetaminophen 500 Mg Tab) 500 mg PO Q6H PRN PRN Reason: fever/pain Stop: 08/14/24 21:36 Last Admin: 08/11/24 20:15 Dose: 500 mg Documented By: Admin: 08/04/24 19:33 Dose: 500 mg Documented By: Admin: 07/31/24 02:54 Dose: 500 mg Documented By: Admin: 07/30/24 05:41 Dose: 500 mg Documented By: Admin: 07/28/24 01:55 Dose: 500 mg Documented By: Admin: 07/26/24 21:24 Dose: 500 mg Documented By: Admin: 07/24/24 14:00 Dose: 500 mg Documented By: Admin: 07/24/24 08:25 Dose: 500 mg Documented By: Admin: 07/16/24 06:31 Dose: 500 mg Documented By: FLOR Aspirin (Aspirin 81 Mg Ectab) 81 mg PO DAILY MATT Stop: 08/15/24 08:59 Last Admin: 08/12/24 08:02 Dose: 81 mg Documented By: Admin: 08/11/24 08:24 Dose: 81 mg Documented By: Admin: 08/10/24 08:37 Dose: 81 mg Documented By: Admin: 08/09/24 09:07 Dose: 81 mg Documented By: JCharanjitM Admin: 08/08/24 10:01 Dose: 81 mg Documented By: Admin: 08/07/24 08:48 Dose: 81 mg Documented By: Admin: 08/06/24 08:43 Dose: 81 mg Documented By: Admin: 08/05/24 08:03 Dose: 81 mg Documented By: Admin: 08/04/24 09:11 Dose: 81 mg Documented By: Admin: 08/03/24 07:08 Dose: 81 mg Documented By: Admin: 08/02/24 07:11 Dose: 81 mg Documented By: Admin: 08/01/24 07:27 Dose: 81 mg Documented By: Admin: 07/31/24 07:49 Dose: 81 mg Documented By: Admin: 07/30/24 08:45 Dose: 81 mg Documented By: Admin: 07/29/24 10:04 Dose: 81 mg Documented By: Admin: 07/28/24 09:34 Dose: Not Given Documented By: Admin: 07/27/24 09:00 Dose: Not Given Documented By: Admin: 07/26/24 08:43 Dose: 81 mg Documented By: Admin: 07/25/24 09:34 Dose: 81 mg Documented By: FRANCIS Co-signed By: MARIALUISA Admin: 07/24/24 07:11 Dose: 81 mg Documented By: Admin: 07/23/24 08:35 Dose: 81 mg Documented By: CLARITZA Co-signed By: RUEL Admin: 07/22/24 09:38 Dose: 81 mg Documented By: Admin: 07/21/24 08:27 Dose: 81 mg Documented By: Admin: 07/20/24 09:17 Dose: 81 mg Documented By: YVROSE Co-signed By: MARIALUISA Admin: 07/19/24 08:28 Dose: 81 mg Documented By: JUAN DANIEL Admin: 07/18/24 09:55 Dose: 81 mg Documented By: YVROSE Co-signed By: MARIALUISA Admin: 07/17/24 09:26 Dose: 81 mg Documented By: Admin: 07/16/24 09:19 Dose: 81 mg Documented By: WAYNE Atorvastatin Calcium (Atorvastatin 40 Mg Tab) 80 mg PO DAILY MATT Stop: 08/15/24 08:59 Last Admin: 08/12/24 08:03 Dose: 80 mg Documented By: Admin: 08/11/24 08:23 Dose: 80 mg Documented By: Admin: 08/10/24 08:38 Dose: 80 mg Documented By: Admin: 08/09/24 09:06 Dose: 80 mg Documented By: Admin: 08/08/24 10:04 Dose: 80 mg Documented By: Admin: 08/07/24 08:49 Dose: 80 mg Documented By: Admin: 08/06/24 08:43 Dose: 80 mg Documented By: Admin: 08/05/24 08:03 Dose: 80 mg Documented By: Admin: 08/04/24 09:12 Dose: 80 mg Documented By: Admin: 08/03/24 07:07 Dose: 80 mg Documented By: Admin: 08/02/24 07:11 Dose: 80 mg Documented By: Admin: 08/01/24 07:29 Dose: 80 mg Documented By: Admin: 07/31/24 07:50 Dose: 80 mg Documented By: Admin: 07/30/24 08:45 Dose: 80 mg Documented By: Admin: 07/29/24 10:03 Dose: 80 mg Documented By: Admin: 07/28/24 09:34 Dose: Not Given Documented By: Admin: 07/27/24 09:00 Dose: Not Given Documented By: Admin: 07/26/24 08:43 Dose: 80 mg Documented By: Admin: 07/25/24 09:34 Dose: 80 mg Documented By: FRANCIS Co-signed By: MARIALUISA Admin: 07/24/24 07:11 Dose: 80 mg Documented By: Admin: 07/23/24 08:37 Dose: 80 mg Documented By: CLARITZA Co-signed By: RUEL Admin: 07/22/24 09:38 Dose: 80 mg Documented By: Admin: 07/21/24 08:25 Dose: 80 mg Documented By: Admin: 07/20/24 09:17 Dose: 80 mg Documented By: YVROSE Co-signed By: MARIALUISA Admin: 07/19/24 08:27 Dose: 80 mg Documented By: JUAN DANIEL Admin: 07/18/24 09:55 Dose: 80 mg Documented By: YVROSE Co-signed By: MARIALUISA Admin: 07/17/24 09:16 Dose: 80 mg Documented By: Admin: 07/16/24 09:17 Dose: 80 mg Documented By: WAYNE Docusate Sodium (Docusate Sodium 100 Mg Cap) 100 mg PO BID MATT Stop: 08/28/24 15:49 Last Admin: 08/12/24 08:04 Dose: Not Given Documented By: Admin: 08/11/24 20:14 Dose: 100 mg Documented By: Admin: 08/11/24 08:25 Dose: 100 mg Documented By: Admin: 08/10/24 19:39 Dose: 100 mg Documented By: TKVince Admin: 08/10/24 08:36 Dose: 100 mg Documented By: Admin: 08/09/24 19:39 Dose: 100 mg Documented By: Admin: 08/09/24 09:12 Dose: 100 mg Documented By: Admin: 08/08/24 20:31 Dose: 100 mg Documented By: Admin: 08/08/24 10:00 Dose: 100 mg Documented By: Admin: 08/07/24 20:01 Dose: 100 mg Documented By: Admin: 08/07/24 08:56 Dose: 100 mg Documented By: Admin: 08/06/24 20:09 Dose: 100 mg Documented By: Admin: 08/06/24 08:53 Dose: 100 mg Documented By: Admin: 08/05/24 21:44 Dose: 100 mg Documented By: Admin: 08/05/24 08:12 Dose: 100 mg Documented By: Admin: 08/04/24 20:51 Dose: 100 mg Documented By: Admin: 08/04/24 07:56 Dose: Not Given Documented By: Admin: 08/03/24 23:35 Dose: Not Given Documented By: Admin: 08/03/24 07:10 Dose: Not Given Documented By: Admin: 08/02/24 21:27 Dose: 100 mg Documented By: Admin: 08/02/24 07:09 Dose: 100 mg Documented By: Admin: 08/01/24 21:33 Dose: 100 mg Documented By: Admin: 08/01/24 07:30 Dose: Not Given Documented By: Admin: 07/31/24 21:49 Dose: 100 mg Documented By: Admin: 07/31/24 07:43 Dose: Not Given Documented By: Admin: 07/30/24 21:15 Dose: 100 mg Documented By: Admin: 07/30/24 08:46 Dose: Not Given Documented By: Admin: 07/29/24 21:24 Dose: 100 mg Documented By: Admin: 07/29/24 17:38 Dose: 100 mg Documented By: DOMINIQUE Duloxetine HCl (Duloxetine Hcl 30 Mg Cap) 30 mg PO [facility] MATT Stop: 08/18/24 08:59 Last Admin: 08/12/24 08:04 Dose: 30 mg Documented By: Admin: 08/11/24 08:22 Dose: 30 mg Documented By: Admin: 08/10/24 08:38 Dose: 30 mg Documented By: Admin: 08/09/24 09:06 Dose: 30 mg Documented By: Admin: 08/08/24 10:05 Dose: 30 mg Documented By: Admin: 08/07/24 08:49 Dose: 30 mg Documented By: Admin: 08/06/24 08:43 Dose: 30 mg Documented By: Admin: 08/05/24 08:03 Dose: 30 mg Documented By: Admin: 08/04/24 09:11 Dose: 30 mg Documented By: Admin: 08/03/24 07:08 Dose: 30 mg Documented By: Admin: 08/02/24 07:11 Dose: 30 mg Documented By: Admin: 08/01/24 07:29 Dose: 30 mg Documented By: Admin: 07/31/24 07:51 Dose: 30 mg Documented By: Admin: 07/30/24 08:46 Dose: 30 mg Documented By: Admin: 07/29/24 10:05 Dose: 30 mg Documented By: Admin: 07/20/24 09:18 Dose: 30 mg Documented By: YVROSE Co-signed By: MARIALUISA Admin: 07/19/24 08:26 Dose: 30 mg Documented By: JUAN DANIEL Ergocalciferol (Ergocalciferol 1250 Mcg (50,000 Units) Cap) 1,250 mcg PO Tu@0900 MATT Stop: 08/18/24 08:59 Last Admin: 08/09/24 09:05 Dose: 1,250 mcg Documented By: Admin: 08/02/24 07:12 Dose: 1,250 mcg Documented By: Admin: 07/26/24 08:42 Dose: 1,250 mcg Documented By: Admin: 07/19/24 08:27 Dose: 1,250 mcg Documented By: JUAN DANIEL Ferrous Sulfate (Ferrous Sulfate 325 Mg Tab) 325 mg PO BID MATT Stop: 08/15/24 08:59 Last Admin: 08/12/24 08:04 Dose: 325 mg Documented By: Admin: 08/11/24 20:14 Dose: 325 mg Documented By: Admin: 08/11/24 08:23 Dose: 325 mg Documented By: Admin: 08/10/24 19:40 Dose: 325 mg Documented By: Admin: 08/10/24 08:37 Dose: 325 mg Documented By: Admin: 08/09/24 19:40 Dose: 325 mg Documented By: Admin: 08/09/24 09:08 Dose: 325 mg Documented By: Admin: 08/08/24 20:34 Dose: 325 mg Documented By: Admin: 08/08/24 10:06 Dose: 325 mg Documented By: Admin: 08/07/24 19:48 Dose: 325 mg Documented By: Admin: 08/07/24 08:48 Dose: 325 mg Documented By: Admin: 08/06/24 20:10 Dose: 325 mg Documented By: Admin: 08/06/24 08:43 Dose: 325 mg Documented By: Admin: 08/05/24 21:44 Dose: 325 mg Documented By: Admin: 08/05/24 08:03 Dose: 325 mg Documented By: Admin: 08/04/24 20:51 Dose: 325 mg Documented By: Admin: 08/04/24 09:12 Dose: 325 mg Documented By: Admin: 08/03/24 23:36 Dose: Not Given Documented By: Admin: 08/03/24 07:09 Dose: 325 mg Documented By: Admin: 08/02/24 21:27 Dose: 325 mg Documented By: Admin: 08/02/24 07:10 Dose: 325 mg Documented By: Admin: 08/01/24 21:33 Dose: 325 mg Documented By: Admin: 08/01/24 07:28 Dose: 325 mg Documented By: Admin: 07/31/24 21:49 Dose: 325 mg Documented By: Admin: 07/31/24 07:51 Dose: 325 mg Documented By: Admin: 07/30/24 21:15 Dose: 325 mg Documented By: Admin: 07/30/24 08:46 Dose: 325 mg Documented By: Admin: 07/29/24 21:25 Dose: 325 mg Documented By: Admin: 07/29/24 10:05 Dose: 325 mg Documented By: Admin: 07/28/24 20:08 Dose: 325 mg Documented By: Admin: 07/28/24 09:34 Dose: Not Given Documented By: Admin: 07/27/24 21:16 Dose: 325 mg Documented By: Admin: 07/27/24 09:00 Dose: Not Given Documented By: Admin: 07/26/24 21:25 Dose: Not Given Documented By: Admin: 07/26/24 08:44 Dose: 325 mg Documented By: Admin: 07/25/24 20:59 Dose: 325 mg Documented By: Admin: 07/25/24 09:35 Dose: 325 mg Documented By: SIMRANG Co-signed By: AL Admin: 07/24/24 20:35 Dose: 325 mg Documented By: Admin: 07/24/24 07:11 Dose: 325 mg Documented By: Admin: 07/23/24 20:46 Dose: 325 mg Documented By: Admin: 07/23/24 08:39 Dose: 325 mg Documented By: CME Co-signed By: NMP Admin: 07/22/24 20:53 Dose: 325 mg Documented By: Admin: 07/22/24 09:38 Dose: 325 mg Documented By: Admin: 07/21/24 20:00 Dose: 325 mg Documented By: Admin: 07/21/24 08:28 Dose: 325 mg Documented By: Admin: 07/20/24 19:44 Dose: 325 mg Documented By: Admin: 07/20/24 09:18 Dose: 325 mg Documented By: YVROSE Co-signed By: MARIALUISA Admin: 07/19/24 21:33 Dose: 325 mg Documented By: Admin: 07/19/24 08:28 Dose: 325 mg Documented By: JUAN DANIEL Admin: 07/18/24 21:16 Dose: 325 mg Documented By: Admin: 07/18/24 09:56 Dose: 325 mg Documented By: YVROSE Co-signed By: MARIALUISA Admin: 07/17/24 21:25 Dose: 325 mg Documented By: Admin: 07/17/24 09:16 Dose: 325 mg Documented By: Admin: 07/16/24 20:37 Dose: 325 mg Documented By: Admin: 07/16/24 09:20 Dose: 325 mg Documented By: WAYNE Promethazine HCl (Phenergan) 12.5 mg in 50.5 mls @ 202 mls/hr IV Q6H PRN PRN Reason: Nausea And Vomiting Stop: 08/14/24 21:36 Last Infusion: 07/30/24 11:09 Dose: Infused Documented By: Admin: 07/30/24 10:44 Dose: 202 mls/hr Documented By: Infusion: 07/29/24 08:08 Dose: Infused Documented By: Admin: 07/29/24 06:08 Dose: 202 mls/hr Documented By: Infusion: 07/26/24 14:11 Dose: Infused Documented By: Admin: 07/26/24 13:04 Dose: 202 mls/hr Documented By: Infusion: 07/25/24 08:55 Dose: Infused Documented By: Admin: 07/25/24 08:20 Dose: 202 mls/hr Documented By: FRANCIS Co-signed By: MARIALUISA Infusion: 07/23/24 04:01 Dose: Infused Documented By: Admin: 07/23/24 03:33 Dose: 202 mls/hr Documented By: Infusion: 07/22/24 13:13 Dose: Infused Documented By: Admin: 07/22/24 12:37 Dose: 202 mls/hr Documented By: FRANCIS Co-signed By: AL Infusion: 07/21/24 08:37 Dose: Infused Documented By: Admin: 07/21/24 08:22 Dose: 202 mls/hr Documented By: Infusion: 07/20/24 20:27 Dose: Infused Documented By: Admin: 07/20/24 20:09 Dose: 202 mls/hr Documented By: TKVince Infusion: 07/20/24 08:48 Dose: Infused Documented By: Admin: 07/20/24 08:33 Dose: 202 mls/hr Documented By: YVROSE Co-signed By: MARIALUISA Infusion: 07/19/24 23:59 Dose: Infused Documented By: Infusion: 07/19/24 23:12 Dose: 204 mls/hr Documented By: Admin: 07/19/24 23:12 Dose: 204 mls/hr Documented By: Infusion: 07/17/24 12:26 Dose: Infused Documented By: Admin: 07/17/24 12:09 Dose: 202 mls/hr Documented By: Infusion: 07/16/24 13:12 Dose: Infused Documented By: Admin: 07/16/24 12:36 Dose: 202 mls/hr Documented By: COMFORT Insulin Glargine (Lantus Per Unit Charge) 14 units SC DAILY@1130 [facility] Stop: 09/06/24 11:29 Last Admin: 08/11/24 12:32 Dose: 14 units Documented By: JAYASHREE Co-signed By: ARLEN Admin: 08/10/24 12:39 Dose: 14 units Documented By: JAYASHREE Co-signed By: ARLEN Admin: 08/09/24 12:43 Dose: 14 units Documented By: JAYASHREE Co-signed By: IVY Admin: 08/08/24 12:35 Dose: 14 units Documented By: JAYASHREE Co-signed By: AAZoran Admin: 08/07/24 12:04 Dose: 14 units Documented By: KENIA Co-signed By: JUAN DANIEL Lactic Acid (Ammonium Lactate 12% Lotion 225 Gm Btl) 1 gm EXT DAILY MATT Stop: 08/15/24 08:59 Last Admin: 08/12/24 08:04 Dose: 1 gm Documented By: Admin: 08/11/24 08:24 Dose: 1 gm Documented By: Admin: 08/10/24 08:37 Dose: 1 gm Documented By: Admin: 08/09/24 09:04 Dose: 1 gm Documented By: Admin: 08/08/24 10:05 Dose: 1 gm Documented By: Admin: 08/07/24 08:50 Dose: 1 gm Documented By: Admin: 08/06/24 08:45 Dose: 1 gm Documented By: Admin: 08/05/24 08:02 Dose: 1 gm Documented By: Admin: 08/04/24 09:11 Dose: 1 gm Documented By: Admin: 08/03/24 07:08 Dose: 1 gm Documented By: Admin: 08/02/24 07:12 Dose: 1 gm Documented By: Admin: 08/01/24 07:31 Dose: 1 gm Documented By: Admin: 07/31/24 07:48 Dose: 1 gm Documented By: Admin: 07/30/24 08:44 Dose: 1 gm Documented By: Admin: 07/29/24 10:10 Dose: 1 gm Documented By: Admin: 07/28/24 09:34 Dose: Not Given Documented By: Admin: 07/27/24 09:00 Dose: Not Given Documented By: Admin: 07/26/24 08:43 Dose: 1 gm Documented By: Admin: 07/25/24 09:34 Dose: 1 gm Documented By: FRANCIS Co-signed By: MARIALUISA Admin: 07/24/24 08:26 Dose: 1 gm Documented By: Admin: 07/23/24 09:23 Dose: 1 gm Documented By: CLARITZA Co-signed By: JUAN DANIEL Admin: 07/22/24 09:39 Dose: 1 gm Documented By: Admin: 07/21/24 08:26 Dose: 1 gm Documented By: Admin: 07/20/24 09:15 Dose: 1 gm Documented By: YVROSE Co-signed By: MARIALUISA Admin: 07/19/24 08:28 Dose: 1 gm Documented By: Admin: 07/18/24 10:15 Dose: 1 gm Documented By: YVROSE Co-signed By: MARIALUISA Admin: 07/17/24 11:40 Dose: 1 gm Documented By: Admin: 07/16/24 09:16 Dose: 1 gm Documented By: WAYNE Lactobacillus Acidophilus (Advanced Probiotic 625 Mg Capsule) 1,250 mg PO DAILY MATT Stop: 08/15/24 14:14 Last Admin: 08/12/24 08:01 Dose: 1,250 mg Documented By: Admin: 08/11/24 08:21 Dose: 1,250 mg Documented By: Admin: 08/10/24 08:35 Dose: 1,250 mg Documented By: Admin: 08/09/24 09:04 Dose: 1,250 mg Documented By: Admin: 08/08/24 10:01 Dose: 1,250 mg Documented By: Admin: 08/07/24 08:48 Dose: 1,250 mg Documented By: Admin: 08/06/24 08:43 Dose: 1,250 mg Documented By: Admin: 08/05/24 08:04 Dose: 1,250 mg Documented By: Admin: 08/04/24 09:11 Dose: 1,250 mg Documented By: Admin: 08/03/24 07:05 Dose: 1,250 mg Documented By: Admin: 08/02/24 07:08 Dose: 1,250 mg Documented By: Admin: 08/01/24 07:30 Dose: 1,250 mg Documented By: Admin: 07/31/24 07:49 Dose: 1,250 mg Documented By: Admin: 07/30/24 08:45 Dose: 1,250 mg Documented By: Admin: 07/29/24 10:02 Dose: 1,250 mg Documented By: Admin: 07/28/24 09:34 Dose: Not Given Documented By: Admin: 07/27/24 09:00 Dose: Not Given Documented By: Admin: 07/26/24 08:43 Dose: 1,250 mg Documented By: Admin: 07/25/24 09:35 Dose: 1,250 mg Documented By: FRANCIS Co-signed By: MARIALUISA Admin: 07/24/24 07:11 Dose: 1,250 mg Documented By: Admin: 07/23/24 08:40 Dose: 1,250 mg Documented By: CLARITZA Co-signed By: RUEL Admin: 07/22/24 09:37 Dose: 1,250 mg Documented By: Admin: 07/21/24 08:26 Dose: 1,250 mg Documented By: Admin: 07/20/24 09:18 Dose: 1,250 mg Documented By: YVROSE Co-signed By: MARIALUISA Admin: 07/19/24 08:28 Dose: 1,250 mg Documented By: JUAN DANIEL Admin: 07/18/24 09:56 Dose: 1,250 mg Documented By: YVROSE Co-signed By: MARIALUISA Admin: 07/17/24 09:16 Dose: 1,250 mg Documented By: Admin: 07/16/24 16:18 Dose: 1,250 mg Documented By: DOMINIQUE Levothyroxine Sodium (Levothyroxine Sodium 88 Mcg Tablet) 88 mcg PO DAILYBB [facility] Stop: 08/15/24 06:29 Last Admin: 08/12/24 05:56 Dose: 88 mcg Documented By: Admin: 08/11/24 05:15 Dose: 88 mcg Documented By: Admin: 08/10/24 05:11 Dose: 88 mcg Documented By: Admin: 08/09/24 05:06 Dose: 88 mcg Documented By: Admin: 08/08/24 05:13 Dose: 88 mcg Documented By: Admin: 08/07/24 05:56 Dose: 88 mcg Documented By: Admin: 08/06/24 06:27 Dose: 88 mcg Documented By: Admin: 08/05/24 06:17 Dose: 88 mcg Documented By: Admin: 08/04/24 05:45 Dose: Not Given Documented By: Admin: 08/03/24 05:41 Dose: 88 mcg Documented By: Admin: 08/02/24 06:30 Dose: 88 mcg Documented By: Admin: 08/01/24 05:56 Dose: 88 mcg Documented By: Admin: 07/31/24 05:40 Dose: 88 mcg Documented By: Admin: 07/30/24 05:41 Dose: 88 mcg Documented By: Admin: 07/29/24 05:33 Dose: 88 mcg Documented By: Admin: 07/28/24 06:01 Dose: 88 mcg Documented By: Admin: 07/27/24 05:31 Dose: Not Given Documented By: Admin: 07/26/24 06:07 Dose: 88 mcg Documented By: Admin: 07/25/24 06:14 Dose: 88 mcg Documented By: Admin: 07/24/24 06:14 Dose: 88 mcg Documented By: Admin: 07/23/24 05:45 Dose: 88 mcg Documented By: Admin: 07/22/24 05:12 Dose: 88 mcg Documented By: Admin: 07/21/24 05:22 Dose: 88 mcg Documented By: Admin: 07/20/24 05:37 Dose: 88 mcg Documented By: Admin: 07/19/24 05:57 Dose: 88 mcg Documented By: Admin: 07/18/24 03:39 Dose: 88 mcg Documented By: Admin: 07/17/24 06:16 Dose: 88 mcg Documented By: Admin: 07/16/24 06:42 Dose: 88 mcg Documented By: FLOR Lisinopril (Lisinopril 5 Mg Tab) 5 mg PO DAILY MATT Stop: 08/15/24 08:59 Last Admin: 08/12/24 08:03 Dose: 5 mg Documented By: Admin: 08/11/24 08:25 Dose: Not Given Documented By: Admin: 07/19/24 08:28 Dose: 5 mg Documented By: JUAN DANIEL Admin: 07/18/24 09:56 Dose: 5 mg Documented By: YVROSE Co-signed By: MARIALUISA Admin: 07/17/24 11:02 Dose: 5 mg Documented By: Admin: 07/16/24 09:18 Dose: 5 mg Documented By: WAYNE Loratadine (Loratadine 10 Mg Tab) 10 mg PO DAILY MATT Stop: 08/15/24 08:59 Last Admin: 08/12/24 08:03 Dose: 10 mg Documented By: Admin: 08/11/24 08:24 Dose: 10 mg Documented By: Admin: 08/10/24 08:39 Dose: 10 mg Documented By: Admin: 08/09/24 09:04 Dose: 10 mg Documented By: Admin: 08/08/24 10:01 Dose: 10 mg Documented By: Admin: 08/07/24 08:48 Dose: 10 mg Documented By: Admin: 08/06/24 08:44 Dose: 10 mg Documented By: Admin: 08/05/24 08:04 Dose: 10 mg Documented By: Admin: 08/04/24 09:12 Dose: 10 mg Documented By: Admin: 08/03/24 07:09 Dose: 10 mg Documented By: Admin: 08/02/24 07:10 Dose: 10 mg Documented By: Admin: 08/01/24 07:27 Dose: 10 mg Documented By: Admin: 07/31/24 07:49 Dose: 10 mg Documented By: Admin: 07/30/24 08:45 Dose: 10 mg Documented By: Admin: 07/29/24 10:02 Dose: 10 mg Documented By: Admin: 07/28/24 09:34 Dose: Not Given Documented By: Admin: 07/27/24 09:01 Dose: Not Given Documented By: Admin: 07/26/24 08:43 Dose: 10 mg Documented By: Admin: 07/25/24 09:35 Dose: 10 mg Documented By: FRANCIS Co-signed By: MARIALUISA Admin: 07/24/24 07:12 Dose: 10 mg Documented By: Admin: 07/23/24 08:42 Dose: 10 mg Documented By: CME Co-signed By: NMP Admin: 07/22/24 09:37 Dose: 10 mg Documented By: Admin: 07/21/24 08:26 Dose: 10 mg Documented By: Admin: 07/20/24 09:19 Dose: 10 mg Documented By: YVROSE Co-signed By: MARIALUISA Admin: 07/19/24 08:27 Dose: 10 mg Documented By: JUAN DANIEL Admin: 07/18/24 09:57 Dose: 10 mg Documented By: AMW Co-signed By: MARIALUISA Admin: 07/17/24 11:02 Dose: 10 mg Documented By: Admin: 07/16/24 09:17 Dose: 10 mg Documented By: WAYNE Metoprolol Succinate (Metoprolol Succ 50mg Ext Rel Tab) 150 mg PO QAM MATT Stop: 08/15/24 08:59 Last Admin: 08/12/24 08:03 Dose: 150 mg Documented By: Admin: 08/11/24 08:22 Dose: 150 mg Documented By: Admin: 08/10/24 08:38 Dose: 150 mg Documented By: Admin: 08/09/24 09:05 Dose: 150 mg Documented By: Admin: 08/08/24 10:05 Dose: 150 mg Documented By: Admin: 08/07/24 08:48 Dose: 150 mg Documented By: Admin: 08/06/24 08:44 Dose: 150 mg Documented By: Admin: 08/05/24 08:04 Dose: 150 mg Documented By: Admin: 08/04/24 09:13 Dose: 150 mg Documented By: Admin: 08/03/24 07:07 Dose: 150 mg Documented By: Admin: 08/02/24 07:13 Dose: Not Given Documented By: Admin: 08/01/24 07:29 Dose: 150 mg Documented By: Admin: 07/31/24 07:51 Dose: 150 mg Documented By: Admin: 07/30/24 08:46 Dose: 150 mg Documented By: Admin: 07/29/24 10:04 Dose: 150 mg Documented By: Admin: 07/28/24 09:34 Dose: Not Given Documented By: Admin: 07/27/24 09:01 Dose: Not Given Documented By: Admin: 07/26/24 08:42 Dose: 150 mg Documented By: Admin: 07/25/24 09:35 Dose: 150 mg Documented By: FRANCIS Co-signed By: MARIALUISA Admin: 07/24/24 07:12 Dose: 150 mg Documented By: Admin: 07/23/24 08:43 Dose: 150 mg Documented By: CLARITZA Co-signed By: RUEL Admin: 07/22/24 09:37 Dose: 150 mg Documented By: Admin: 07/21/24 08:27 Dose: 150 mg Documented By: Admin: 07/20/24 09:19 Dose: 150 mg Documented By: YVROSE Co-signed By: MARIALUISA Admin: 07/19/24 08:26 Dose: 150 mg Documented By: JUAN DANIEL Admin: 07/18/24 09:57 Dose: 150 mg Documented By: YVROSE Co-signed By: MARIALUISA Admin: 07/17/24 09:17 Dose: 150 mg Documented By: Admin: 07/16/24 09:18 Dose: 150 mg Documented By: WAYNE Miconazole Nitrate (Miconazole Nitrate Powder 85 Gm) 1 appln EXT BID PRN PRN Reason: Itching Stop: 09/10/24 16:44 Last Admin: 08/12/24 08:01 Dose: 1 appln Documented By: Admin: 08/11/24 20:16 Dose: 1 appln Documented By: DEAN Multivitamins/Minerals (Cerovite Adv Formula Tab) 1 tab PO DAILY MATT Stop: 08/15/24 08:59 Last Admin: 08/12/24 08:02 Dose: 1 tab Documented By: Admin: 08/11/24 08:24 Dose: 1 tab Documented By: Admin: 08/10/24 08:37 Dose: 1 tab Documented By: Admin: 08/09/24 09:05 Dose: 1 tab Documented By: Admin: 08/08/24 10:01 Dose: 1 tab Documented By: Admin: 08/07/24 08:48 Dose: 1 tab Documented By: Admin: 08/06/24 08:44 Dose: 1 tab Documented By: Admin: 08/05/24 08:05 Dose: 1 tab Documented By: Admin: 08/04/24 09:11 Dose: 1 tab Documented By: Admin: 08/03/24 07:06 Dose: 1 tab Documented By: Admin: 08/02/24 07:09 Dose: 1 tab Documented By: Admin: 08/01/24 07:27 Dose: 1 tab Documented By: Admin: 07/31/24 07:50 Dose: 1 tab Documented By: Admin: 07/30/24 08:45 Dose: 1 tab Documented By: Admin: 07/29/24 10:03 Dose: 1 tab Documented By: Admin: 07/28/24 09:34 Dose: Not Given Documented By: Admin: 07/27/24 09:01 Dose: Not Given Documented By: Admin: 07/26/24 08:43 Dose: 1 tab Documented By: Admin: 07/25/24 09:37 Dose: 1 tab Documented By: FRANCIS Co-signed By: MARIALUISA Admin: 07/24/24 07:12 Dose: 1 tab Documented By: Admin: 07/23/24 08:45 Dose: 1 tab Documented By: CLARITZA Co-signed By: NMYanick Admin: 07/22/24 09:37 Dose: 1 tab Documented By: Admin: 07/21/24 08:27 Dose: 1 tab Documented By: Admin: 07/20/24 09:19 Dose: 1 tab Documented By: YVROSE Co-signed By: MARIALUISA Admin: 07/19/24 08:27 Dose: 1 tab Documented By: JUAN DANIEL Admin: 07/18/24 09:57 Dose: 1 tab Documented By: YVROSE Co-signed By: MARIALUISA Admin: 07/17/24 09:14 Dose: 1 tab Documented By: Admin: 07/16/24 09:17 Dose: 1 tab Documented By: MMF Nystatin/Triamcinolone Acetonide (Nystatin/Triamcin Cr 15 Gm Tube) 1 appln EXT BID MATT Stop: 08/30/24 20:59 Last Admin: 08/12/24 08:01 Dose: 1 appln Documented By: Admin: 08/11/24 20:15 Dose: 1 appln Documented By: Admin: 08/11/24 08:24 Dose: 1 appln Documented By: Admin: 08/10/24 19:40 Dose: 1 appln Documented By: Admin: 08/10/24 08:37 Dose: 1 appln Documented By: Admin: 08/09/24 19:40 Dose: 1 appln Documented By: Admin: 08/09/24 09:05 Dose: 1 appln Documented By: Admin: 08/08/24 20:33 Dose: 1 appln Documented By: Admin: 08/08/24 10:07 Dose: 1 appln Documented By: Admin: 08/07/24 19:48 Dose: 1 appln Documented By: Admin: 08/07/24 08:49 Dose: 1 appln Documented By: Admin: 08/06/24 20:11 Dose: 1 appln Documented By: Admin: 08/06/24 08:45 Dose: 1 appln Documented By: Admin: 08/05/24 21:45 Dose: 1 appln Documented By: Admin: 08/05/24 08:05 Dose: 1 appln Documented By: Admin: 08/04/24 20:51 Dose: 1 appln Documented By: Admin: 08/04/24 09:11 Dose: 1 appln Documented By: Admin: 08/03/24 23:37 Dose: Not Given Documented By: Admin: 08/03/24 07:08 Dose: 1 appln Documented By: Admin: 08/02/24 21:28 Dose: 1 appln Documented By: Admin: 08/02/24 07:13 Dose: 1 appln Documented By: Admin: 08/01/24 07:31 Dose: 1 appln Documented By: Admin: 08/01/24 07:31 Dose: 1 appln Documented By: Admin: 07/31/24 22:22 Dose: 1 appln Documented By: Admin: 07/31/24 14:59 Dose: 1 appln Documented By: ARLEN Ondansetron HCl (Ondansetron Inj 2 Mg/Ml 2 Ml Vial) 4 mg IV Q6H PRN PRN Reason: Nausea And Vomiting Stop: 08/20/24 14:32 Last Admin: 08/11/24 18:26 Dose: 4 mg Documented By: Admin: 08/10/24 19:40 Dose: 4 mg Documented By: Admin: 08/08/24 02:24 Dose: 4 mg Documented By: Admin: 08/07/24 04:44 Dose: 4 mg Documented By: Admin: 08/06/24 20:03 Dose: 4 mg Documented By: Admin: 08/06/24 11:47 Dose: 4 mg Documented By: Admin: 08/05/24 22:09 Dose: 4 mg Documented By: Admin: 08/05/24 11:27 Dose: 4 mg Documented By: Admin: 08/04/24 10:01 Dose: 4 mg Documented By: Admin: 08/03/24 17:22 Dose: 4 mg Documented By: Admin: 08/03/24 05:41 Dose: 4 mg Documented By: Admin: 08/02/24 08:03 Dose: 4 mg Documented By: Admin: 08/01/24 23:25 Dose: 4 mg Documented By: Admin: 07/31/24 12:05 Dose: 4 mg Documented By: Admin: 07/31/24 04:30 Dose: 4 mg Documented By: Admin: 07/30/24 05:42 Dose: 4 mg Documented By: Admin: 07/29/24 10:25 Dose: 4 mg Documented By: Admin: 07/29/24 04:15 Dose: 4 mg Documented By: Admin: 07/28/24 20:22 Dose: 4 mg Documented By: Admin: 07/27/24 22:28 Dose: 4 mg Documented By: Admin: 07/26/24 08:36 Dose: 4 mg Documented By: Admin: 07/25/24 23:59 Dose: 4 mg Documented By: Admin: 07/25/24 06:14 Dose: 4 mg Documented By: Admin: 07/24/24 22:27 Dose: 4 mg Documented By: Admin: 07/24/24 14:09 Dose: 4 mg Documented By: Admin: 07/24/24 04:50 Dose: 4 mg Documented By: Admin: 07/22/24 23:43 Dose: 4 mg Documented By: Admin: 07/21/24 14:42 Dose: 4 mg Documented By: JAYASHREE Oxycodone HCl (Oxycodone Hcl Ir 5 Mg Tab (Immediate Release)) 5 mg PO Q4H PRN PRN Reason: Pain Stop: 08/15/24 00:08 Last Admin: 08/12/24 05:56 Dose: 5 mg Documented By: Admin: 08/12/24 00:19 Dose: 5 mg Documented By: Admin: 08/11/24 18:34 Dose: 5 mg Documented By: Admin: 08/11/24 12:46 Dose: 5 mg Documented By: Admin: 08/10/24 22:18 Dose: 5 mg Documented By: Admin: 08/10/24 17:52 Dose: 5 mg Documented By: Admin: 08/10/24 12:39 Dose: 5 mg Documented By: Admin: 08/10/24 00:00 Dose: 5 mg Documented By: Admin: 08/09/24 19:39 Dose: 5 mg Documented By: Admin: 08/09/24 12:52 Dose: 5 mg Documented By: Admin: 08/08/24 20:32 Dose: 5 mg Documented By: Admin: 08/08/24 15:29 Dose: 5 mg Documented By: Admin: 08/08/24 10:12 Dose: 5 mg Documented By: Admin: 08/08/24 05:13 Dose: 5 mg Documented By: Admin: 08/07/24 21:04 Dose: 5 mg Documented By: Admin: 08/07/24 16:08 Dose: 5 mg Documented By: Admin: 08/07/24 12:19 Dose: 5 mg Documented By: Admin: 08/07/24 04:44 Dose: 5 mg Documented By: Admin: 08/06/24 20:03 Dose: 5 mg Documented By: Admin: 08/06/24 08:40 Dose: 5 mg Documented By: Admin: 08/06/24 04:34 Dose: 5 mg Documented By: Admin: 08/05/24 19:46 Dose: 5 mg Documented By: Admin: 08/05/24 11:27 Dose: 5 mg Documented By: Admin: 08/05/24 02:15 Dose: 5 mg Documented By: Admin: 08/04/24 17:18 Dose: 5 mg Documented By: Admin: 08/04/24 09:21 Dose: 5 mg Documented By: Admin: 08/04/24 02:35 Dose: 5 mg Documented By: Admin: 08/03/24 16:05 Dose: 5 mg Documented By: Admin: 08/03/24 09:38 Dose: 5 mg Documented By: Admin: 08/03/24 04:40 Dose: 5 mg Documented By: Admin: 08/02/24 09:48 Dose: 5 mg Documented By: Admin: 08/02/24 04:27 Dose: 5 mg Documented By: Admin: 08/01/24 21:41 Dose: 5 mg Documented By: Admin: 08/01/24 16:05 Dose: 5 mg Documented By: Admin: 08/01/24 04:39 Dose: 5 mg Documented By: Admin: 08/01/24 00:38 Dose: 5 mg Documented By: JHONATAN Pantoprazole Sodium (Pantoprazole 40 Mg Tab) 40 mg PO BID MATT Stop: 08/15/24 08:59 Last Admin: 08/12/24 08:02 Dose: 40 mg Documented By: Admin: 08/11/24 20:14 Dose: 40 mg Documented By: Admin: 08/11/24 08:23 Dose: 40 mg Documented By: Admin: 08/10/24 19:41 Dose: 40 mg Documented By: Admin: 08/10/24 08:39 Dose: 40 mg Documented By: Admin: 08/09/24 19:40 Dose: 40 mg Documented By: Admin: 08/09/24 09:07 Dose: 40 mg Documented By: Admin: 08/08/24 20:34 Dose: 40 mg Documented By: Admin: 08/08/24 10:04 Dose: 40 mg Documented By: Admin: 08/07/24 19:48 Dose: 40 mg Documented By: Admin: 08/07/24 08:48 Dose: 40 mg Documented By: Admin: 08/06/24 21:18 Dose: 40 mg Documented By: Admin: 08/06/24 08:44 Dose: 40 mg Documented By: Admin: 08/05/24 21:44 Dose: 40 mg Documented By: Admin: 08/05/24 08:05 Dose: 40 mg Documented By: Admin: 08/04/24 20:51 Dose: 40 mg Documented By: Admin: 08/04/24 09:12 Dose: 40 mg Documented By: Admin: 08/03/24 23:37 Dose: Not Given Documented By: Admin: 08/03/24 07:10 Dose: 40 mg Documented By: Admin: 08/02/24 21:27 Dose: 40 mg Documented By: Admin: 08/02/24 07:11 Dose: 40 mg Documented By: Admin: 08/01/24 21:33 Dose: 40 mg Documented By: Admin: 08/01/24 07:28 Dose: 40 mg Documented By: Admin: 07/31/24 21:49 Dose: 40 mg Documented By: Admin: 07/31/24 07:51 Dose: 40 mg Documented By: Admin: 07/30/24 21:15 Dose: 40 mg Documented By: Admin: 07/30/24 08:45 Dose: 40 mg Documented By: Admin: 07/29/24 21:25 Dose: 40 mg Documented By: Admin: 07/29/24 10:05 Dose: 40 mg Documented By: Admin: 07/28/24 20:08 Dose: 40 mg Documented By: Admin: 07/28/24 09:35 Dose: Not Given Documented By: Admin: 07/27/24 21:21 Dose: 40 mg Documented By: Admin: 07/27/24 09:01 Dose: Not Given Documented By: Admin: 07/26/24 21:25 Dose: Not Given Documented By: Admin: 07/26/24 08:44 Dose: 40 mg Documented By: Admin: 07/25/24 20:59 Dose: 40 mg Documented By: Admin: 07/25/24 09:37 Dose: 40 mg Documented By: FRANCIS Co-signed By: MARIALUISA Admin: 07/24/24 20:34 Dose: 40 mg Documented By: Admin: 07/24/24 07:12 Dose: 40 mg Documented By: Admin: 07/23/24 20:47 Dose: 40 mg Documented By: Admin: 07/23/24 08:45 Dose: 40 mg Documented By: CME Co-signed By: NMP Admin: 07/22/24 20:53 Dose: 40 mg Documented By: LR Admin: 07/22/24 09:38 Dose: 40 mg Documented By: Admin: 07/21/24 20:00 Dose: 40 mg Documented By: TKVince Admin: 07/21/24 08:28 Dose: 40 mg Documented By: Admin: 07/20/24 19:45 Dose: 40 mg Documented By: Admin: 07/20/24 09:20 Dose: 40 mg Documented By: YVROSE Co-signed By: MARIALUISA Admin: 07/19/24 21:34 Dose: 40 mg Documented By: Admin: 07/19/24 08:28 Dose: 40 mg Documented By: JUAN DANIEL Admin: 07/18/24 21:17 Dose: 40 mg Documented By: Admin: 07/18/24 09:57 Dose: 40 mg Documented By: YVROSE Co-signed By: MARIALUISA Admin: 07/17/24 21:25 Dose: 40 mg Documented By: Admin: 07/17/24 11:02 Dose: 40 mg Documented By: Admin: 07/16/24 23:39 Dose: Not Given Documented By: Admin: 07/16/24 09:20 Dose: 40 mg Documented By: WAYNE Polyethylene Glycol (Polyethylene (Miralax) 17 Gm Pack) 17 gm PO DAILY MATT Stop: 08/28/24 15:59 Last Admin: 08/12/24 08:05 Dose: Not Given Documented By: Admin: 08/11/24 08:26 Dose: Not Given Documented By: Admin: 08/10/24 08:39 Dose: Not Given Documented By: Admin: 08/09/24 09:08 Dose: Not Given Documented By: Admin: 08/08/24 10:00 Dose: 17 gm Documented By: Admin: 08/07/24 08:50 Dose: Not Given Documented By: [facility] Admin: 08/06/24 08:53 Dose: 17 gm Documented By: [facility] Admin: 08/05/24 08:07 Dose: Not Given Documented By: [facility] Admin: 08/04/24 07:56 Dose: Not Given Documented By: Admin: 08/03/24 07:10 Dose: Not Given Documented By: Admin: 08/02/24 07:13 Dose: Not Given Documented By: Admin: 08/01/24 07:32 Dose: Not Given Documented By: Admin: 07/31/24 07:23 Dose: Not Given Documented By: Admin: 07/30/24 08:46 Dose: Not Given Documented By: Admin: 07/29/24 17:38 Dose: 17 gm Documented By: DOMINIQUE Potassium Chloride (Potassium Chloride Crtab 20 Meq Tabcr) 20 meq PO BID MATT Stop: 08/15/24 20:59 Last Admin: 08/12/24 08:08 Dose: 20 meq Documented By: Admin: 08/11/24 20:14 Dose: 20 meq Documented By: Admin: 08/11/24 08:21 Dose: 20 meq Documented By: Admin: 08/10/24 19:39 Dose: 20 meq Documented By: Admin: 08/10/24 08:35 Dose: 20 meq Documented By: Admin: 08/09/24 19:39 Dose: 20 meq Documented By: Admin: 08/09/24 09:14 Dose: 20 meq Documented By: Admin: 08/08/24 20:32 Dose: 20 meq Documented By: Admin: 08/08/24 10:03 Dose: 20 meq Documented By: Admin: 08/07/24 20:02 Dose: 20 meq Documented By: Admin: 08/07/24 08:56 Dose: 20 meq Documented By: Admin: 08/06/24 20:14 Dose: 20 meq Documented By: Admin: 08/06/24 08:53 Dose: 20 meq Documented By: Admin: 08/05/24 21:44 Dose: 20 meq Documented By: Admin: 08/05/24 08:12 Dose: 20 meq Documented By: Admin: 08/04/24 20:51 Dose: 20 meq Documented By: Admin: 08/04/24 09:10 Dose: 20 meq Documented By: Admin: 08/03/24 23:37 Dose: Not Given Documented By: Admin: 08/03/24 07:13 Dose: 20 meq Documented By: Admin: 08/02/24 21:27 Dose: 20 meq Documented By: Admin: 08/02/24 07:15 Dose: 20 meq Documented By: Admin: 08/01/24 21:33 Dose: 20 meq Documented By: Admin: 08/01/24 07:36 Dose: 20 meq Documented By: WRDaylin Admin: 07/31/24 21:50 Dose: 20 meq Documented By: Admin: 07/31/24 07:50 Dose: 20 meq Documented By: Admin: 07/30/24 21:15 Dose: 20 meq Documented By: Admin: 07/30/24 08:45 Dose: 20 meq Documented By: Admin: 07/29/24 21:25 Dose: 20 meq Documented By: Admin: 07/29/24 10:02 Dose: 20 meq Documented By: Admin: 07/28/24 20:17 Dose: 20 meq Documented By: Admin: 07/28/24 09:35 Dose: Not Given Documented By: Admin: 07/27/24 21:13 Dose: 20 meq Documented By: Admin: 07/27/24 09:01 Dose: Not Given Documented By: Admin: 07/26/24 21:25 Dose: Not Given Documented By: Admin: 07/26/24 08:41 Dose: 20 meq Documented By: Admin: 07/25/24 21:02 Dose: 20 meq Documented By: Admin: 07/25/24 09:37 Dose: 20 meq Documented By: FRANCIS Co-signed By: MARIALUISA Admin: 07/24/24 20:32 Dose: 20 meq Documented By: Admin: 07/24/24 07:13 Dose: 20 meq Documented By: Admin: 07/23/24 20:47 Dose: 20 meq Documented By: Admin: 07/23/24 08:47 Dose: 20 meq Documented By: [email or web address] Co-signed By: NMP Admin: 07/22/24 20:52 Dose: 20 meq Documented By: Admin: 07/22/24 09:45 Dose: 20 meq Documented By: Admin: 07/21/24 20:00 Dose: 20 meq Documented By: Admin: 07/21/24 08:30 Dose: 20 meq Documented By: Admin: 07/20/24 19:49 Dose: 20 meq Documented By: Admin: 07/20/24 09:20 Dose: 20 meq Documented By: [email or web address] Co-signed By: MARIALUISA Admin: 07/19/24 21:32 Dose: 20 meq Documented By: Admin: 07/19/24 08:27 Dose: 20 meq Documented By: JUAN DANIEL Admin: 07/18/24 21:14 Dose: 20 meq Documented By: Admin: 07/18/24 09:57 Dose: 20 meq Documented By: AMW Co-signed By: MARIALUISA Admin: 07/17/24 21:21 Dose: 20 meq Documented By: Admin: 07/17/24 09:26 Dose: 20 meq Documented By: Admin: 07/16/24 20:44 Dose: 20 meq Documented By: [email or web address] Pregabalin (Pregabalin 75 Mg Cap) 75 mg PO TID MATT Stop: 08/15/24 08:59 Last Admin: 08/12/24 08:08 Dose: 75 mg Documented By: Admin: 08/11/24 20:14 Dose: 75 mg Documented By: Admin: 08/11/24 14:08 Dose: 75 mg Documented By: Admin: 08/11/24 08:21 Dose: 75 mg Documented By: Admin: 08/10/24 19:40 Dose: 75 mg Documented By: Admin: 08/10/24 14:16 Dose: 75 mg Documented By: Admin: 08/10/24 08:36 Dose: 75 mg Documented By: Admin: 08/09/24 19:39 Dose: 75 mg Documented By: Admin: 08/09/24 14:33 Dose: Not Given Documented By: Admin: 08/09/24 09:12 Dose: 75 mg Documented By: Admin: 08/08/24 20:31 Dose: 75 mg Documented By: Admin: 08/08/24 13:59 Dose: 75 mg Documented By: Admin: 08/08/24 10:01 Dose: 75 mg Documented By: Admin: 08/07/24 20:01 Dose: 75 mg Documented By: [email or web address] Admin: 08/07/24 14:20 Dose: 75 mg Documented By: Admin: 08/07/24 08:56 Dose: 75 mg Documented By: Admin: 08/06/24 20:14 Dose: 75 mg Documented By: Admin: 08/06/24 14:42 Dose: 75 mg Documented By: Admin: 08/06/24 08:52 Dose: 75 mg Documented By: Admin: 08/05/24 21:44 Dose: 75 mg Documented By: Admin: 08/05/24 14:49 Dose: 75 mg Documented By: [email or web address] Admin: 08/05/24 08:12 Dose: 75 mg Documented By: Admin: 08/04/24 20:51 Dose: 75 mg Documented By: Admin: 08/04/24 14:55 Dose: 75 mg Documented By: Admin: 08/04/24 09:10 Dose: 75 mg Documented By: Admin: 08/03/24 23:38 Dose: Not Given Documented By: Admin: 08/03/24 13:27 Dose: 75 mg Documented By: Admin: 08/03/24 07:12 Dose: 75 mg Documented By: Admin: 08/02/24 21:27 Dose: 75 mg Documented By: Admin: 08/02/24 13:50 Dose: 75 mg Documented By: Admin: 08/02/24 07:16 Dose: 75 mg Documented By: Admin: 08/01/24 21:33 Dose: 75 mg Documented By: Admin: 08/01/24 13:31 Dose: 75 mg Documented By: Admin: 08/01/24 07:36 Dose: 75 mg Documented By: Admin: 07/31/24 21:49 Dose: 75 mg Documented By: Admin: 07/31/24 15:46 Dose: Not Given Documented By: Admin: 07/31/24 07:50 Dose: 75 mg Documented By: Admin: 07/30/24 21:15 Dose: 75 mg Documented By: Admin: 07/30/24 13:57 Dose: Not Given Documented By: Admin: 07/30/24 08:44 Dose: 75 mg Documented By: Admin: 07/29/24 21:24 Dose: 75 mg Documented By: Admin: 07/29/24 15:45 Dose: 75 mg Documented By: Admin: 07/29/24 10:02 Dose: 75 mg Documented By: Admin: 07/28/24 20:17 Dose: 75 mg Documented By: Admin: 07/28/24 13:26 Dose: Not Given Documented By: Admin: 07/28/24 09:18 Dose: Not Given Documented By: Admin: 07/27/24 21:13 Dose: 75 mg Documented By: Admin: 07/27/24 13:01 Dose: 75 mg Documented By: Admin: 07/27/24 09:01 Dose: Not Given Documented By: Admin: 07/26/24 21:25 Dose: Not Given Documented By: Admin: 07/26/24 15:05 Dose: 75 mg Documented By: Admin: 07/26/24 08:41 Dose: 75 mg Documented By: Admin: 07/25/24 21:03 Dose: 75 mg Documented By: Admin: 07/25/24 14:18 Dose: 75 mg Documented By: Admin: 07/25/24 09:42 Dose: 75 mg Documented By: FRANCIS Co-signed By: MARIALUISA Admin: 07/24/24 20:32 Dose: 75 mg Documented By: Admin: 07/24/24 14:02 Dose: 75 mg Documented By: Admin: 07/24/24 07:13 Dose: 75 mg Documented By: Admin: 07/23/24 20:47 Dose: 75 mg Documented By: Admin: 07/23/24 13:46 Dose: 75 mg Documented By: CLARITZA Co-signed By: NMYanick Admin: 07/23/24 08:48 Dose: 75 mg Documented By: CLARITZA Co-signed By: NMP Admin: 07/22/24 20:52 Dose: 75 mg Documented By: LR Admin: 07/22/24 14:33 Dose: Not Given Documented By: Admin: 07/22/24 09:45 Dose: Not Given Documented By: Admin: 07/21/24 20:00 Dose: 75 mg Documented By: TKVince Admin: 07/21/24 14:14 Dose: 75 mg Documented By: Admin: 07/21/24 08:30 Dose: 75 mg Documented By: Admin: 07/20/24 19:49 Dose: 75 mg Documented By: TKVince Admin: 07/20/24 13:42 Dose: 75 mg Documented By: YVROSE Co-signed By: MARIALUISA Admin: 07/20/24 09:21 Dose: 75 mg Documented By: YVROSE Co-signed By: MARIALUISA Admin: 07/19/24 21:32 Dose: 75 mg Documented By: Admin: 07/19/24 13:04 Dose: 75 mg Documented By: JUAN DANIEL Admin: 07/19/24 08:27 Dose: 75 mg Documented By: JUAN DANIEL Admin: 07/18/24 21:14 Dose: 75 mg Documented By: Admin: 07/18/24 13:58 Dose: 75 mg Documented By: YVROSE Co-signed By: MARIALUISA Admin: 07/18/24 09:54 Dose: Not Given Documented By: Admin: 07/17/24 21:21 Dose: 75 mg Documented By: Admin: 07/17/24 14:12 Dose: 75 mg Documented By: Admin: 07/17/24 09:14 Dose: 75 mg Documented By: Admin: 07/16/24 20:44 Dose: 75 mg Documented By: Admin: 07/16/24 16:16 Dose: 75 mg Documented By: Admin: 07/16/24 10:34 Dose: 75 mg Documented By: WAYNE Spironolactone (Spironolactone 25 Mg Tab) 25 mg PO DAILY MATT Stop: 08/16/24 08:59 Last Admin: 08/12/24 08:04 Dose: 25 mg Documented By: Admin: 08/11/24 08:24 Dose: 25 mg Documented By: Admin: 08/10/24 08:39 Dose: 25 mg Documented By: Admin: 08/09/24 09:07 Dose: 25 mg Documented By: Admin: 08/08/24 10:03 Dose: 25 mg Documented By: [email or web address] Admin: 08/07/24 08:48 Dose: 25 mg Documented By: Admin: 08/06/24 08:44 Dose: 25 mg Documented By: Admin: 08/05/24 08:05 Dose: 25 mg Documented By: Admin: 08/04/24 09:11 Dose: 25 mg Documented By: Admin: 08/03/24 07:10 Dose: 25 mg Documented By: Admin: 08/02/24 07:13 Dose: 25 mg Documented By: Admin: 08/01/24 07:30 Dose: 25 mg Documented By: Admin: 07/31/24 07:49 Dose: 25 mg Documented By: Admin: 07/30/24 08:44 Dose: 25 mg Documented By: Admin: 07/29/24 10:04 Dose: 25 mg Documented By: Admin: 07/19/24 08:27 Dose: 25 mg Documented By: JUAN DANIEL Admin: 07/18/24 09:58 Dose: 25 mg Documented By: YVROSE Co-signed By: MARIALUISA Admin: 07/17/24 09:16 Dose: 25 mg Documented By: DOMINIQUE Torsemide (Torsemide 20 Mg Tab) 40 mg PO QAM MATT Stop: 08/15/24 08:59 Last Admin: 08/12/24 08:02 Dose: 40 mg Documented By: Admin: 08/11/24 08:23 Dose: 40 mg Documented By: Admin: 08/10/24 08:38 Dose: 40 mg Documented By: Admin: 08/09/24 09:07 Dose: 40 mg Documented By: Admin: 08/08/24 10:06 Dose: 40 mg Documented By: Admin: 08/07/24 08:49 Dose: 40 mg Documented By: Admin: 08/06/24 08:44 Dose: 40 mg Documented By: Admin: 08/05/24 08:06 Dose: 40 mg Documented By: Admin: 08/04/24 09:12 Dose: 40 mg Documented By: Admin: 08/03/24 07:06 Dose: 40 mg Documented By: Admin: 08/02/24 07:10 Dose: 40 mg Documented By: Admin: 08/01/24 07:28 Dose: 40 mg Documented By: Admin: 07/31/24 07:50 Dose: 40 mg Documented By: Admin: 07/30/24 08:45 Dose: 40 mg Documented By: Admin: 07/29/24 10:05 Dose: 40 mg Documented By: Admin: 07/19/24 08:27 Dose: 40 mg Documented By: JUAN DANIEL Admin: 07/18/24 09:58 Dose: 40 mg Documented By: YVROSE Co-signed By: MARIALUISA Admin: 07/17/24 09:15 Dose: 40 mg Documented By: Admin: 07/16/24 09:19 Dose: 40 mg Documented By: WAYNE Torsemide (Torsemide 20 Mg Tab) 20 mg PO DAILY@1700 MATT Stop: 08/15/24 16:59 Last Admin: 08/11/24 17:16 Dose: 20 mg Documented By: Admin: 08/10/24 16:39 Dose: 20 mg Documented By: Admin: 08/09/24 16:51 Dose: 20 mg Documented By: Admin: 08/08/24 17:07 Dose: 20 mg Documented By: Admin: 08/07/24 17:03 Dose: 20 mg Documented By: Admin: 08/06/24 17:04 Dose: 20 mg Documented By: Admin: 08/05/24 16:58 Dose: 20 mg Documented By: Admin: 08/04/24 16:55 Dose: 20 mg Documented By: Admin: 08/03/24 16:06 Dose: 20 mg Documented By: Admin: 08/02/24 17:04 Dose: 20 mg Documented By: Admin: 08/01/24 16:08 Dose: 20 mg Documented By: Admin: 07/31/24 16:51 Dose: 20 mg Documented By: Admin: 07/30/24 16:46 Dose: 20 mg Documented By: Admin: 07/29/24 17:38 Dose: 20 mg Documented By: Admin: 07/28/24 16:08 Dose: Not Given Documented By: Admin: 07/18/24 17:38 Dose: 20 mg Documented By: Admin: 07/17/24 17:46 Dose: 20 mg Documented By: Admin: 07/16/24 17:14 Dose: 20 mg Documented By: DOMINIQUE Warfarin Sodium (Warfarin Sod 4 Mg Tab) 4 mg PO DAILY@1600 MATT Stop: 08/31/24 15:59 Last Admin: 08/10/24 16:39 Dose: 4 mg Documented By: Admin: 08/09/24 16:50 Dose: 4 mg Documented By: Admin: 08/06/24 17:03 Dose: 4 mg Documented By: Admin: 08/05/24 16:57 Dose: 4 mg Documented By: Admin: 08/04/24 16:49 Dose: 4 mg Documented By: Admin: 08/03/24 16:05 Dose: 4 mg Documented By: Admin: 08/02/24 17:04 Dose: 4 mg Documented By: Admin: 08/01/24 16:06 Dose: 4 mg Documented By: ABBIE Coding Level of Care Code 71014 IN/OBS CONSULT LVL 4,60M Diagnoses Osteomyelitis of ankle and foot M86.9 History of below-knee amputation of left lower extremity Z89.512 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
[2024-08-12] MEDS: INSULIN ASPART PER UNIT CHARGE SC SCH (11:54)
--- NOTE | 2024-08-12 17:17 | Hospitalist Progress Note ---
Date of Service August 12, 2024 Assessment & Plan (1) Cellulitis of right leg: Plan 58-year-old man with PMH of HFrEF [EF 30 to 35%, TTE 2024] sp ICD, CAD, VT sp ablation, A-fib/DVT on Coumadin, HTN, HLD, pHTN,/OHS on BPAP, bronchial asthma, T2DM on insulin pump, hypothyroidism, CKD [baseline creatinine of 1.2-1.3], chronic anemia [baseline hemoglobin of 10], mood disorder, RLE osteomyelitis sp surgery, left foot osteomyelitis sp left BKA, morbid obesity who was recently admitted 05/24/2024 to 07/01/2024 for decompensated heart failure/LLE cellulitis and infected chronic right foot ulcer. Wound cultures were negative and patient completed cefepime and meropenem course. There was unsuccessful efforts for rehab/permanent placement at the time and patient was discharged home. Patient was admitted at [facility] July 02 to day after [facility] discharge as patient was found by home health nurse living in deplorable condition. Patient was discharged from the hospital despite social services manager notifying hospital providers that patient was not safe going home. Per patient's home health nursing reports, patient has trouble getting food/patient confused about medication/patient worried about bilateral painful leg swelling with intermittent bloody drainage/patient fell off of his chair and had to call [employer] twice to get him up/patient incapable of transfers and is with bowel incontinence.Patient reports having sore throat/myalgia/na usea/loose stools for last 2 to 3 days [employer]GLE [employer]. 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 BLE cellulitis Underlying RLE osteomyelitis Medical noncompliance No sepsis at presentation. Patient with recurrent lower extremity cellulitis likely secondary to noncompliance with medications/diet and patient's functional disability. Admitting imaging: CXR with mild pulmonary edema. C-spine CT and head CT with no acute finding. XR Left lower extremity with no acute bony abnormality, left below-knee amputation noted. Right foot x-ray and right foot CT - suggestive of extensive osteomyelitis. No pathologic fracture noted. CT right lower extremity - suggestive of cellulitis. CT Left knee and BKA stump - suggestive of cellulitis. --Doxycycline 07/16 and cefepime 07/16 ---> ID evaluated 07/18, recs are iv cefepime 2g q8h, linezolid 600 mg q12h EOT 07/30/2024, recommends amputation of RLE. Linezolid and duloxetine has severe interaction of serotonin syndrome, d/w ID 07/18, plan to decrease dose of duloxetine to half and c/w linezolid Podiatry evaluated, recs are RLE amputation vs palliative care. --Patient currently refuses amputation and does not believe he has osteomyelitis despite explaining in detail --Wound culture growing Klebsiella pneumoniae ESBL, Alcaligenes faecalis --Blood cultures negative -- Continue local wound care --Change IV cefepime to ertapenem--completed antibiotic course Continue Zyvox--completed antibiotic course Discussed with infectious disease on 07/27/2024: Recommends to complete antibiotic course on 07/30/2024 as previously planned. Believes antibiotics will not heal his infection. Recommends amputation if patient agrees Patient prefers to follow-up with his primary regulatory affairs spec Dr. 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 He does not believe that his foot is infected despite explaining in detail Needs to follow-up with wound care on discharge as well Consulted palliative care to address goals of care Poor prognosis due to noncompliance Office of aging is involved Will need follow-up with podiatry on discharge Continue current management Placement to rehab has been difficult Acute kidney injury on CKD III: Volume overload status Creatinine improved to 1.3 Monitor renal function avoid nephrotoxic agents as able Constipation Continue bowel regimen Minimize narcotics as able Resolved Atrial fibrillation: Supratherapeutic INR Continue metoprolol On Coumadin for anticoagulation Monitor INR 3.1 today Hold Coumadin today Likely resume Coumadin tomorrow Acute on chronic heart failure with reduced ejection fraction: Recent echo with EF of 30 to 35%, BLE swelling noted, CXR with pulmonary edema at presentation. Likely secondary to medication noncompliance. Monitor I's and O's, monitor and replete electrolytes. Monitor volume status closely Plan to resume lisinopril as able Transitioned IV Lasix to home oral diuretics Continue on torsemide 40 mg daily, Aldactone 25 mg daily Patient refuses to be on fluid restriction Adult failure to thrive: Medication noncompliance Inability to take care of the self Patient has had numerous hospitalizations in regards to failure to thrive at home Dietary consult, case management consult. PT/OT Office of aging involved Other chronic medical conditions: Continue with/resume home meds as and when able. T2DM: Continue insulin. Has been refusing dietary restrictions, insulin PVD: Status post left BKA amputation. Continue with home aspirin and Lipitor. Morbid obesity: BMI 46. Likely contributed to PVD and recurrent cellulitis. Counseling done. NINA on CPAP: Continue CPAP at bedtime. Cardiac defibrillator in situ: Noted Major depression disorder: Continue with duloxetine Lymphedema: Likely contributing to cellulitis. Follow-up with lymphedema clinic as an outpatient. Chronic pain syndrome: c/w oxy and lyrica DVT Px: Warfarin CODE STATUS Full code Admission and Anticipated Discharge Date Admission Date: July 15, 2024 Subjective Patient is seen and examined at bedside No new complaints today Denies any chest pain, dyspnea, nausea, vomiting, abdominal pain Waiting for placement Review of Systems Review of Systems: All systems reviewed & are unremarkable except as noted in Subjective Physical Exam Physical Exam: Physical Exam: Vitals signs as noted above General Appearance:Morbidly Obese, no apparent distress, ill-appearing Head: normocephalic, Atraumatic Eyes: normal inspection, EOMI Neck: supple, Trachea midline Respiratory/Chest: Normal breath sounds, CTA, No accessory muscle use Cardiovascular: Irregularly irregular, No murmur Abdomen/GI:Soft, Non tender, Bowel sounds present Extremities/Musculoskeletal:normal inspection, LE edema, lymphedema, Left BKA +dressing Neurologic/Psych:AAOX3, grossly no focal neurological deficits Skin: normal color, warm Results & Data Results & Data Vital Signs (Past 12 Hours) Vital Signs Temp Pulse Resp BP BP Pulse Ox O2 Del Method 08/12/24 15:09 36.3 C L 68 18 120/72 95 Room Air 08/12/24 07:56 Room Air 08/12/24 07:19 36.4 C L 62 16 118/75 97 Room Air
[2024-08-12] MEDS: LANTUS PER UNIT CHARGE SQ SCH (20:34)
[2024-08-12] MEDS: KETOROLAC TROMETHAMINE 15 MG/ML VIAL IV ONE (22:24)
[2024-08-13 06:52] LABS: INR 2.6 (0.9-1.1)
--- NOTE | 2024-08-13 16:13 | Hospitalist Progress Note ---
Date of Service August 13, 2024 Assessment & Plan (1) Cellulitis of right leg: Plan 58-year-old man with PMH of HFrEF [EF 30 to 35%, TTE 2024] sp ICD, CAD, VT sp ablation, A-fib/DVT on Coumadin, HTN, HLD, pHTN,/OHS on BPAP, bronchial asthma, T2DM on insulin pump, hypothyroidism, CKD [baseline creatinine of 1.2-1.3], chronic anemia [baseline hemoglobin of 10], mood disorder, RLE osteomyelitis sp surgery, left foot osteomyelitis sp left BKA, morbid obesity who was recently admitted 05/24/2024 to 07/01/2024 for decompensated heart failure/LLE cellulitis and infected chronic right foot ulcer. Wound cultures were negative and patient completed cefepime and meropenem course. There was unsuccessful efforts for rehab/permanent placement at the time and patient was discharged home. Patient was admitted at [facility] July 02 to day after [facility] discharge as patient was found by home health nurse living in deplorable condition. Patient was discharged from the hospital despite social work professor notifying hospital providers that patient was not safe going home. Per patient's home health nursing reports, patient has trouble getting food/patient confused about medication/patient worried about bilateral painful leg swelling with intermittent bloody drainage/patient fell off of his chair and had to call [employer] twice to get him up/patient incapable of transfers and is with bowel incontinence.Patient reports having sore throat/myalgia/na usea/loose stools for last 2 to 3 days [employer]. 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 BLE cellulitis Underlying RLE osteomyelitis Medical noncompliance No sepsis at presentation. Patient with recurrent lower extremity cellulitis likely secondary to noncompliance with medications/diet and patient's functional disability. Admitting imaging: CXR with mild pulmonary edema. C-spine CT and head CT with no acute finding. XR Left lower extremity with no acute bony abnormality, left below-knee amputation noted. Right foot x-ray and right foot CT - suggestive of extensive osteomyelitis. No pathologic fracture noted. CT right lower extremity - suggestive of cellulitis. CT Left knee and BKA stump - suggestive of cellulitis. --Doxycycline 07/16 and cefepime 07/16 ---> ID evaluated 07/18, recs are iv cefepime 2g q8h, linezolid 600 mg q12h EOT 07/30/2024, recommends amputation of RLE. Linezolid and duloxetine has severe interaction of serotonin syndrome, d/w ID 07/18, plan to decrease dose of duloxetine to half and c/w linezolid Podiatry evaluated, recs are RLE amputation vs palliative care. --Patient currently refuses amputation and does not believe he has osteomyelitis despite explaining in detail --Wound culture growing Klebsiella pneumoniae ESBL, Alcaligenes faecalis --Blood cultures negative -- Continue local wound care --Change IV cefepime to ertapenem--completed antibiotic course Continue Zyvox--completed antibiotic course Discussed with infectious disease on 07/27/2024: Recommends to complete antibiotic course on 07/30/2024 as previously planned. Believes antibiotics will not heal his infection. Recommends amputation if patient agrees Patient prefers to follow-up with his primary casting room operator Dr. 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 He does not believe that his foot is infected despite explaining in detail Needs to follow-up with wound care on discharge as well Consulted palliative care to address goals of care Poor prognosis due to noncompliance Office of aging is involved Will need follow-up with podiatry on discharge Placement to rehab has been difficult Given leg wound care Acute kidney injury on CKD III: Volume overload status Creatinine improved to 1.3 Monitor renal function avoid nephrotoxic agents as able Will recheck BMP in 2 days Constipation Continue bowel regimen Minimize narcotics as able Resolved Atrial fibrillation: Supratherapeutic INR Continue metoprolol On Coumadin for anticoagulation Monitor INR 2.6 today Resume Coumadin at lower dose Acute on chronic heart failure with reduced ejection fraction: Recent echo with EF of 30 to 35%, BLE swelling noted, CXR with pulmonary edema at presentation. Likely secondary to medication noncompliance. Monitor I's and O's, monitor and replete electrolytes. Monitor volume status closely Plan to resume lisinopril as able Transitioned IV Lasix to home oral diuretics Continue on torsemide 40 mg daily, Aldactone 25 mg daily Patient refuses to be on fluid restriction Adult failure to thrive: Medication noncompliance Inability to take care of the self Patient has had numerous hospitalizations in regards to failure to thrive at home Dietary consult, case management consult. PT/OT Office of aging involved Other chronic medical conditions: Continue with/resume home meds as and when able. T2DM: Continue insulin. Has been refusing dietary restrictions, insulin PVD: Status post left BKA amputation. Continue with home aspirin and Lipitor. Morbid obesity: BMI 46. Likely contributed to PVD and recurrent cellulitis. Counseling done. NINA on CPAP: Continue CPAP at bedtime. Cardiac defibrillator in situ: Noted Major depression disorder: Continue with duloxetine Lymphedema: Likely contributing to cellulitis. Follow-up with lymphedema clinic as an outpatient. Chronic pain syndrome: c/w oxy and lyrica DVT Px: Warfarin CODE STATUS Full code Admission and Anticipated Discharge Date Admission Date: July 15, 2024 Subjective Patient is seen and examined at bedside Reports chronic right hip pain No other complaints Denies any chest pain, dyspnea, nausea, vomiting, abdominal pain Waiting for placement Review of Systems Review of Systems: All systems reviewed & are unremarkable except as noted in Subjective Physical Exam Physical Exam: Physical Exam: Vitals signs as noted above General Appearance:Morbidly Obese, no apparent distress, ill-appearing Head: normocephalic, Atraumatic Eyes: normal inspection, EOMI Neck: supple, Trachea midline Respiratory/Chest: Normal breath sounds, CTA, No accessory muscle use Cardiovascular: Irregularly irregular, No murmur Abdomen/GI:Soft, Non tender, Bowel sounds present Extremities/Musculoskeletal:normal inspection, LE edema, lymphedema, Left BKA +dressing Neurologic/Psych:AAOX3, grossly no focal neurological deficits Skin: normal color, warm Results & Data Results & Data Vital Signs (Past 12 Hours) Vital Signs Temp Pulse Resp BP Pulse Ox O2 Del Method 08/13/24 07:53 36.7 C 76 16 130/73 97 Room Air
[2024-08-13] MEDS: WARFARIN SOD 2 MG TAB PO SCH (16:45)
[2024-08-13] MEDS: INSULIN ASPART PER UNIT CHARGE SC SCH (16:47)
[2024-08-13] MEDS: MoRPHine SULFATE 4 MG/ML 1 ML CARP\\VIAL IV PRN (16:48)
[2024-08-14 07:54] LABS: INR 2.2 (0.9-1.1)
[2024-08-14] MEDS: INSULIN ASPART PER UNIT CHARGE SC SCH (07:58)
[2024-08-14] MEDS: LANTUS PER UNIT CHARGE SQ SCH (12:09)
--- NOTE | 2024-08-14 14:13 | XRay Report ---
HISTORY: Right hip pain. TECHNIQUE: Pelvic and right hip radiographs. COMPARISON: Abdominal radiographs dated 05/29/2024. FINDINGS: The pelvic and obturator rings appear intact. No widening of the pubic symphysis or sacroiliac joints. The right femoral head and proximal femur appear intact. Small chronic appearing ossicle adjacent to the superior acetabulum is unchanged since prior study from 05/29/2024 and could represent sequela of remote trauma. 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 Mild osteoarthritis of the right hip. Similar morphology of the left femoral head neck junction. Mild left hip osteoarthritis. Enthesophyte formation about the iliac crest. Included lumbar spine is unremarkable. IMPRESSION: * No acute fracture or dislocation. * Mild osteoarthritis of the hips. 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 * Mild degenerative changes of the pelvis and lower lumbar spine. Electronically signed by Heron Up 08-14-2024 2:13 PM
--- NOTE | 2024-08-14 16:05 | Hospitalist Progress Note ---
Date of Service August 14, 2024 Assessment & Plan (1) Cellulitis of right leg: Plan 58-year-old man with PMH of HFrEF [EF 30 to 35%, TTE 2024] sp ICD, CAD, VT sp ablation, A-fib/DVT on Coumadin, HTN, HLD, pHTN,/OHS on BPAP, bronchial asthma, T2DM on insulin pump, hypothyroidism, CKD [baseline creatinine of 1.2-1.3], chronic anemia [baseline hemoglobin of 10], mood disorder, RLE osteomyelitis sp surgery, left foot osteomyelitis sp left BKA, morbid obesity who was recently admitted 05/24/2024 to 07/01/2024 for decompensated heart failure/LLE cellulitis and infected chronic right foot ulcer. Wound cultures were negative and patient completed cefepime and meropenem course. There was unsuccessful efforts for rehab/permanent placement at the time and patient was discharged home. Patient was admitted at [facility] July 02 to day after [facility] discharge as patient was found by home health nurse living in deplorable condition. Patient was discharged from the hospital despite social director notifying hospital providers that patient was not safe going home. 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 BLE cellulitis Underlying RLE osteomyelitis Medical noncompliance No sepsis at presentation. Patient with recurrent lower extremity cellulitis likely secondary to noncompliance with medications/diet and patient's functional disability. Admitting imaging: CXR with mild pulmonary edema. C-spine CT and head CT with no acute finding. XR Left lower extremity with no acute bony abnormality, left below-knee amputation noted. Right foot x-ray and right foot CT - suggestive of extensive osteomyelitis. No pathologic fracture noted. CT right lower extremity - suggestive of cellulitis. CT Left knee and BKA stump - suggestive of cellulitis. --Doxycycline 07/16 and cefepime 07/16 ---> ID evaluated 07/18, recs are iv cefepime 2g q8h, linezolid 600 mg q12h EOT 07/30/2024, recommends amputation of RLE. Linezolid and duloxetine has severe interaction of serotonin syndrome, d/w ID 07/18, plan to decrease dose of duloxetine to half and c/w linezolid Podiatry evaluated, recs are RLE amputation vs palliative care. --Patient currently refuses amputation and does not believe he has osteomyelitis despite explaining in detail --Wound culture growing Klebsiella pneumoniae ESBL, Alcaligenes faecalis --Blood cultures negative -- Continue local wound care --Change IV cefepime to ertapenem--completed antibiotic course Continue Zyvox--completed antibiotic course Discussed with infectious disease on 07/27/2024: Recommends to complete antibiotic course on 07/30/2024 as previously planned. Believes antibiotics will not heal his infection. 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 He does not believe that his foot is infected despite explaining in detail Needs to follow-up with wound care on discharge as well Consulted palliative care to address goals of care Poor prognosis due to noncompliance Office of aging is involved Will need follow-up with podiatry on discharge Plan to discharge to rehab facility when accepted Acute kidney injury on CKD III: Volume overload status Creatinine improved to 1.3 Monitor renal function avoid nephrotoxic agents as able Will recheck BMP tomorrow Right hip pain Likely due to arthritis No fractures on imaging Follow-up as outpatient Constipation Continue bowel regimen Minimize narcotics as able Resolved Atrial fibrillation: Supratherapeutic INR Continue metoprolol On Coumadin for anticoagulation Monitor INR 2.2 today Adjust Coumadin dose as needed Acute on chronic heart failure with reduced ejection fraction: Recent echo with EF of 30 to 35%, BLE swelling noted, CXR with pulmonary edema at presentation. Likely secondary to medication noncompliance. Monitor I's and O's, monitor and replete electrolytes. Monitor volume status closely Plan to resume lisinopril as able Transitioned IV Lasix to home oral diuretics Continue on torsemide 40 mg daily, Aldactone 25 mg daily Patient refuses to be on fluid restriction Adult failure to thrive: Medication noncompliance Inability to take care of the self Patient has had numerous hospitalizations in regards to failure to thrive at home Dietary consult, case management consult. PT/OT Office of aging involved Other chronic medical conditions: Continue with/resume home meds as and when able. T2DM: Continue insulin. Has been refusing dietary restrictions, insulin PVD: Status post left BKA amputation. Continue with home aspirin and Lipitor. Morbid obesity: BMI 46. Likely contributed to PVD and recurrent cellulitis. Counseling done. NINA on CPAP: Continue CPAP at bedtime. Cardiac defibrillator in situ: Noted Major depression disorder: Continue with duloxetine Lymphedema: Likely contributing to cellulitis. Follow-up with lymphedema clinic as an outpatient. Chronic pain syndrome: c/w oxy and lyrica DVT Px: Warfarin CODE STATUS Full code Admission and Anticipated Discharge Date Admission Date: July 15, 2024 Subjective Patient is seen and examined at bedside Denies any chest pain, dyspnea, nausea, vomiting, abdominal pain No new complaints today Waiting for placement Review of Systems Review of Systems: All systems reviewed & are unremarkable except as noted in Subjective Physical Exam Physical Exam: Physical Exam: Vitals signs as noted above General Appearance:Morbidly Obese, no apparent distress, ill-appearing Head: normocephalic, Atraumatic Eyes: normal inspection, EOMI Neck: supple, Trachea midline Respiratory/Chest: Normal breath sounds, CTA, No accessory muscle use Cardiovascular: Irregularly irregular, No murmur Abdomen/GI:Soft, Non tender, Bowel sounds present Extremities/Musculoskeletal:normal inspection, LE edema, lymphedema, Left BKA +dressing Neurologic/Psych:AAOX3, grossly no focal neurological deficits Skin: normal color, warm Results & Data Results & Data Vital Signs (Past 12 Hours) Vital Signs Temp Pulse Resp BP BP Pulse Ox O2 Del Method 08/14/24 14:51 36.7 C 75 18 109/64 93 Room Air 08/14/24 07:16 36.5 C 73 16 144/76 H 96 Room Air
[2024-08-14] MEDS: WARFARIN SOD 3 MG TAB PO SCH (16:55)
[2024-08-15] MEDS ORDERED: GLUCOSE 40% GEL 15 GM TUBE PO PRN (07:15)
[2024-08-15] MEDS ORDERED: CARBOHYDRATES FOR HYPOGLYCEMIA PO PRN ×2 (07:15→13:10)
[2024-08-15] MEDS ORDERED: GLUCAGON FOR INJ 1 MG VIAL SQ PRN ×2 (07:15→13:10)
[2024-08-15] MEDS ORDERED: GLUCOSE 10 TAB/TUBE PO PRN (07:15)
[2024-08-15] MEDS ORDERED: DEXTROSE 50% 50 ML SYRINGE IV PRN ×2 (07:15→13:10)
--- NOTE | 2024-08-15 08:51 | Pharmacy Report ---
Pharmacy Glycemic Short Note 2 - Date of Service August 15, 2024 - Glycemic Short BSG Results (Last 24 hours): 08/14/24 08/14/24 08/14/24 11:42 11:43 11:45 POC Glucose 355 H* 217 H 165 H 08/14/24 08/14/24 08/15/24 16:40 20:23 07:45 POC Glucose 127 H 96 133 H OUTPATIENT ANTIDIABETIC REGIMEN: * Lantus 12 units SC BID * Novolog 10 units SC AC * Januvia 50 mg PO daily * HbA1c: 6.5% (05/25/24) ASSESSMENT: 08/15: * Ben received 71 units of insulin yesterday, 30 of which were basal. BSGs were: [phone] mg/dL. * Fasting BSG this AM is 133 mg/dL. Will continue with once daily basal insulin dose that was increased yesterday. * BSGs trending down throughout the day. Will continue with tighter bolus coverage with breakfast only but going to loosen carb ratio starting at lunchtime today. * Tolerating T2DM diet well. 08/12: * Ben received a total of 82 units of insulin yesterday (26 units were basal and 56 units were bolus). Despite increased insulin doses, his BSGs were all still above goal ([phone]/dL) yesterday. * Fasting BSG was 211mg/dL this morning. The HS Lantus dose has been increased again and bolus insulin parameters have been tightened. 08/10: * Patient received a total of 64 units of insulin yesterday (24 units were basal and 40 units were bolus). BSGs still above goal with meals. Lunch time BSG has been > 250mg/dL the last several days so will tighten the bolus insulin parameters with breakfast only. * Fasting BSG still elevated at 200mg/dL this morning. Will increase the HS Lantus. 08/08: * Patient received 58 units of insulin yesterday (10 units more than the previous day), BSGS rising with meals yesterday, tighten CR. * Fasting still elevated today, despite increase in basal yesterday, will wait to see if tighter CR fixes high blood sugars, if not, consider increasing basal tomorrow. PLAN FOR INPATIENT GLYCEMIC CONTROL: * Hold outpatient diabetes medications * Basal insulin * Lantus 30 units SC daily at 1130 * Bolus insulin * NovoLog per scale ACHS or Q6hrs while NPO * Goal Range: Low 110 mg/dL - High 150 mg/dL * Breakfast: Correction Factor: 25 mg/dL/unit; Carb ratio of 1 unit per 5 grams CHO consumed * Lunch, Dinner, Bedtime: Correction Factor: 30 mg/dL/unit; Carb ratio of 1 unit per 7 grams CHO consumed
[2024-08-15 09:28] LABS: BUN Creatinine Ratio 33.6 (10-20); Calcium 8.7 mg/dl (8.6-10.3); Creatinine Clr Calc Pharmacy 89.8 ml/min; Potassium 4.5 mmol/L (3.5-5.1)
[2024-08-15 09:39] LABS: INR 2.2 (0.9-1.1); Prothrombin Time 22.2 Seconds (9.0-12.0)
[2024-08-15] MEDS: PREGABALIN 75 MG CAP PO SCH (13:41)
--- NOTE | 2024-08-15 16:43 | Hospitalist Progress Note ---
Date of Service August 15, 2024 Assessment & Plan (1) Cellulitis of right leg: Plan 58-year-old man with PMH of HFrEF [EF 30 to 35%, TTE 2024] sp ICD, CAD, VT sp ablation, A-fib/DVT on Coumadin, HTN, HLD, pHTN,/OHS on BPAP, bronchial asthma, T2DM on insulin pump, hypothyroidism, CKD [baseline creatinine of 1.2-1.3], chronic anemia [baseline hemoglobin of 10], mood disorder, RLE osteomyelitis sp surgery, left foot osteomyelitis sp left BKA, morbid obesity who was recently admitted 05/24/2024 to 07/01/2024 for decompensated heart failure/LLE cellulitis and infected chronic right foot ulcer. Wound cultures were negative and patient completed cefepime and meropenem course. There was unsuccessful efforts for rehab/permanent placement at the time and patient was discharged home. Patient was admitted at [facility] July 02 [address] [facility] discharge as patient was found by home health nurse living in deplorable condition. Patient was discharged from the hospital despite social media manager notifying hospital providers that patient was not safe going home. 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 BLE cellulitis Underlying RLE osteomyelitis Medical noncompliance No sepsis at presentation. Patient with recurrent lower extremity cellulitis likely secondary to noncompliance with medications/diet and patient's functional disability. Admitting imaging: CXR with mild pulmonary edema. C-spine CT and head CT with no acute finding. XR Left lower extremity with no acute bony abnormality, left below-knee amputation noted. Right foot x-ray and right foot CT - suggestive of extensive osteomyelitis. No pathologic fracture noted. CT right lower extremity - suggestive of cellulitis. CT Left knee and BKA stump - suggestive of cellulitis. --Doxycycline 07/16 and cefepime 07/16 ---> ID evaluated 07/18, recs are iv cefepime 2g q8h, linezolid 600 mg q12h EOT 07/30/2024, recommends amputation of RLE. Linezolid and duloxetine has severe interaction of serotonin syndrome, d/w ID 07/18, plan to decrease dose of duloxetine to half and c/w linezolid Podiatry evaluated, recs are RLE amputation vs palliative care. --Patient currently refuses amputation and does not believe he has osteomyelitis despite explaining in detail --Wound culture growing Klebsiella pneumoniae ESBL, Alcaligenes faecalis --Blood cultures negative -- Continue local wound care --Change IV cefepime to ertapenem--completed antibiotic course Continue Zyvox--completed antibiotic course Discussed with infectious disease on 07/27/2024: Recommends to complete antibiotic course on 07/30/2024 as previously planned. Believes antibiotics will not heal his infection. Recommends amputation if patient agrees Patient prefers to follow-up with his primary practice lead Dr. 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 He does not believe that his foot is infected despite explaining in detail Needs to follow-up with wound care on discharge as well Consulted palliative care to address goals of care Poor prognosis due to noncompliance Office of aging is involved Will need follow-up with podiatry on discharge Plan to discharge to rehab facility when accepted Continue current management Acute kidney injury on CKD III: Volume overload status Creatinine improved to 1.3 avoid nephrotoxic agents as able Renal function stable on repeat labs today Right hip pain Likely due to arthritis No fractures on imaging Follow-up as outpatient pain is controlled Constipation Continue bowel regimen Minimize narcotics as able Resolved Atrial fibrillation: Supratherapeutic INR Continue metoprolol On Coumadin for anticoagulation Monitor INR 2.2 today Adjust Coumadin dose as needed Acute on chronic heart failure with reduced ejection fraction: Recent echo with EF of 30 to 35%, BLE swelling noted, CXR with pulmonary edema at presentation. Likely secondary to medication noncompliance. Monitor I's and O's, monitor and replete electrolytes. Monitor volume status closely Plan to resume lisinopril as able Transitioned IV Lasix to home oral diuretics Continue on torsemide 40 mg daily, Aldactone 25 mg daily Patient refuses to be on fluid restriction Adult failure to thrive: Medication noncompliance Inability to take care of the self Patient has had numerous hospitalizations in regards to failure to thrive at home Dietary consult, case management consult. PT/OT Office of aging involved Other chronic medical conditions: Continue with/resume home meds as and when able. T2DM: Continue insulin. Has been refusing dietary restrictions, insulin PVD: Status post left BKA amputation. Continue with home aspirin and Lipitor. Morbid obesity: BMI 46. Likely contributed to PVD and recurrent cellulitis. Counseling done. NINA on CPAP: Continue CPAP at bedtime. Cardiac defibrillator in situ: Noted Major depression disorder: Continue with duloxetine Lymphedema: Likely contributing to cellulitis. Follow-up with lymphedema clinic as an outpatient. Chronic pain syndrome: c/w oxy and lyrica DVT Px: Warfarin CODE STATUS Full code Admission and Anticipated Discharge Date Admission Date: July 15, 2024 Subjective Patient is seen and examined at bedside Hip pain is controlled No new complaints Denies any chest pain, dyspnea, nausea, vomiting, abdominal pain Review of Systems Review of Systems: All systems reviewed & are unremarkable except as noted in Subjective Physical Exam Physical Exam: Physical Exam: Vitals signs as noted above General Appearance:Morbidly Obese, no apparent distress, ill-appearing Head: normocephalic, Atraumatic Eyes: normal inspection, EOMI Neck: supple, Trachea midline Respiratory/Chest: Normal breath sounds, CTA, No accessory muscle use Cardiovascular: Irregularly irregular, No murmur Abdomen/GI:Soft, Non tender, Bowel sounds present Extremities/Musculoskeletal:normal inspection, LE edema, lymphedema, Left BKA +dressing Neurologic/Psych:AAOX3, grossly no focal neurological deficits Skin: normal color, warm Results & Data Results & Data Vital Signs (Past 12 Hours) Vital Signs Temp Pulse Resp BP Pulse Ox O2 Del Method 08/15/24 14:54 36.8 C 61 16 97/65 L 96 Room Air 08/15/24 07:45 Room Air 08/15/24 07:15 36.5 C 79 18 104/59 L 95 Room Air Laboratory Results [facility] 08/15/24 08:26 Sodium 136 Potassium 4.5 Chloride 102 Carbon Dioxide 28 BUN 45 H Creatinine 1.34 Glucose 166 H Calcium 8.7
[2024-08-15] MEDS: TORSEMIDE 20 MG TAB PO SCH (16:48)
[2024-08-15] MEDS: FERROUS SULFATE 325 MG TAB PO SCH (16:48)
[2024-08-15] MEDS: oxyCODONE HCL IR 5 MG TAB (IMMEDIATE RELEASE) PO PRN (17:27)
[2024-08-15] MEDS: PANTOprazole 40 MG TAB PO SCH (19:25)
[2024-08-16] MEDS: MoRPHine SULFATE 4 MG/ML 1 ML CARP\\VIAL IV PRN (03:17)
[2024-08-16] MEDS: LEVOTHYROXINE SODIUM 88 MCG TABLET PO SCH (05:27)
[2024-08-16] MEDS: LORATADINE 10 MG TAB PO SCH (07:07)
[2024-08-16] MEDS: AMMONIUM LACTATE 12% LOTION 225 GM BTL EXT SCH (07:08)
[2024-08-16] MEDS: ATORVASTATIN 40 MG TAB PO SCH (07:08)
[2024-08-16] MEDS: MULTIVITAMIN TAB PO SCH (07:09)
[2024-08-16] MEDS: lisinopril 5 MG TAB PO SCH (07:09)
[2024-08-16] MEDS: ASPIRIN 81 MG ECTAB PO SCH (07:11)
[2024-08-16] MEDS: METOPROLOL SUCC 50MG EXT REL TAB PO SCH (07:13)
[2024-08-16 08:42] LABS: INR 1.9 (0.9-1.1); Prothrombin Time 19.6 Seconds (9.0-12.0)
[2024-08-16] MEDS ORDERED: TORSEMIDE 20 MG TAB PO SCH (09:00)
[2024-08-16] MEDS: LANTUS PER UNIT CHARGE SQ SCH (11:57)
[2024-08-16] MEDS: WARFARIN SOD 4 MG TAB PO SCH (16:41)
--- NOTE | 2024-08-16 16:53 | Hospitalist Progress Note ---
Date of Service August 16, 2024 Assessment & Plan (1) Cellulitis of right leg: Plan 58-year-old man with PMH of HFrEF [EF 30 to 35%, TTE 2024] sp ICD, CAD, VT sp ablation, A-fib/DVT on Coumadin, HTN, HLD, pHTN,/OHS on BPAP, bronchial asthma, T2DM on insulin pump, hypothyroidism, CKD [baseline creatinine of 1.2-1.3], chronic anemia [baseline hemoglobin of 10], mood disorder, RLE osteomyelitis sp surgery, left foot osteomyelitis sp left BKA, morbid obesity who was recently admitted 05/24/2024 to 07/01/2024 for decompensated heart failure/LLE cellulitis and infected chronic right foot ulcer. Wound cultures were negative and patient completed cefepime and meropenem course. There was unsuccessful efforts for rehab/permanent placement at the time and patient was discharged home. Patient was admitted at [facility] July 02 to day after [facility] discharge as patient was found by home health nurse living in deplorable condition. Patient was discharged from the hospital despite social work administrator notifying hospital providers that patient was not safe going home. 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 BLE cellulitis Underlying RLE osteomyelitis Medical noncompliance No sepsis at presentation. Patient with recurrent lower extremity cellulitis likely secondary to noncompliance with medications/diet and patient's functional disability. Admitting imaging: CXR with mild pulmonary edema. C-spine CT and head CT with no acute finding. XR Left lower extremity with no acute bony abnormality, left below-knee amputation noted. Right foot x-ray and right foot CT - suggestive of extensive osteomyelitis. No pathologic fracture noted. CT right lower extremity - suggestive of cellulitis. CT Left knee and BKA stump - suggestive of cellulitis. --Doxycycline 07/16 and cefepime 07/16 ---> ID evaluated 07/18, recs are iv cefepime 2g q8h, linezolid 600 mg q12h EOT 07/30/2024, recommends amputation of RLE. Linezolid and duloxetine has severe interaction of serotonin syndrome, d/w ID 07/18, plan to decrease dose of duloxetine to half and c/w linezolid Podiatry evaluated, recs are RLE amputation vs palliative care. --Patient currently refuses amputation and does not believe he has osteomyelitis despite explaining in detail --Wound culture growing Klebsiella pneumoniae ESBL, Alcaligenes faecalis --Blood cultures negative -- Continue local wound care --Change IV cefepime to ertapenem--completed antibiotic course Continue Zyvox--completed antibiotic course Discussed with infectious disease on 07/27/2024: Recommends to complete antibiotic course on 07/30/2024 as previously planned. Believes antibiotics will not heal his infection. 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 He does not believe that his foot is infected despite explaining in detail Needs to follow-up with wound care on discharge as well Consulted palliative care to address goals of care Poor prognosis due to noncompliance Office of aging is involved Will need follow-up with podiatry on discharge Plan to discharge to rehab facility when accepted Clinically no significant change from yesterday Case management/office of aging still working on discharge plan Acute kidney injury on CKD III: Volume overload status Creatinine improved to 1.3 avoid nephrotoxic agents as able Monitor Right hip pain Likely due to arthritis No fractures on imaging Follow-up as outpatient pain is controlled Constipation Continue bowel regimen Minimize narcotics as able Resolved Atrial fibrillation: Supratherapeutic INR Continue metoprolol On Coumadin for anticoagulation Monitor INR 1.9 today Increase Coumadin to 4 mg daily Acute on chronic heart failure with reduced ejection fraction: Recent echo with EF of 30 to 35%, BLE swelling noted, CXR with pulmonary edema at presentation. Likely secondary to medication noncompliance. Monitor I's and O's, monitor and replete electrolytes. Monitor volume status closely Continue lisinopril, metoprolol Transitioned IV Lasix to home oral diuretics Continue on torsemide 40 mg daily, Aldactone 25 mg daily Patient refuses to be on fluid restriction Monitor volume status closely Adult failure to thrive: Medication noncompliance Inability to take care of the self Patient has had numerous hospitalizations in regards to failure to thrive at home Dietary consult, case management consult. PT/OT Office of aging involved Other chronic medical conditions: Continue with/resume home meds as and when able. T2DM: Continue insulin. Has been refusing dietary restrictions, insulin PVD: Status post left BKA amputation. Continue with home aspirin and Lipitor. Morbid obesity: BMI 46. Likely contributed to PVD and recurrent cellulitis. Counseling done. NINA on CPAP: Continue CPAP at bedtime. Cardiac defibrillator in situ: Noted Major depression disorder: Continue with duloxetine Lymphedema: Likely contributing to cellulitis. Follow-up with lymphedema clinic as an outpatient. Chronic pain syndrome: c/w oxy and lyrica DVT Px: Warfarin CODE STATUS Full code Admission and Anticipated Discharge Date Admission Date: July 15, 2024 Subjective Patient is seen and examined at bedside Feels having transient nausea this morning Otherwise no complaints Hip pain is improved Denies any chest pain, dyspnea, nausea, vomiting, abdominal pain Waiting for placement Review of Systems Review of Systems: All systems reviewed & are unremarkable except as noted in Subjective Physical Exam Physical Exam: Physical Exam: Vitals signs as noted above General Appearance:Morbidly Obese, no apparent distress, ill-appearing Head: normocephalic, Atraumatic Eyes: normal inspection, EOMI Neck: supple, Trachea midline Respiratory/Chest: Normal breath sounds, CTA, No accessory muscle use Cardiovascular: Irregularly irregular, No murmur Abdomen/GI:Soft, Non tender, Bowel sounds present Extremities/Musculoskeletal:normal inspection, LE edema, lymphedema, Left BKA +dressing Neurologic/Psych:AAOX3, grossly no focal neurological deficits Skin: normal color, warm Results & Data Results & Data Vital Signs (Past 12 Hours) Vital Signs Temp Pulse Resp BP Pulse Ox O2 Del Method 08/16/24 15:08 36.3 C L 63 16 110/72 98 Room Air 08/16/24 07:15 36.7 C 69 14 118/75 98 Room Air
[2024-08-17] MEDS: KETOROLAC TROMETHAMINE 15 MG/ML VIAL IV ONE (03:55)
--- NOTE | 2024-08-17 09:01 | Pharmacy Report ---
Pharmacy Glycemic Short Note 2 - Date of Service August 17, 2024 - Glycemic Short BSG Results (Last 24 hours): 08/16/24 08/16/24 08/16/24 11:03 16:16 20:37 POC Glucose 250 H 208 H 159 H 08/17/24 07:22 POC Glucose 218 H OUTPATIENT ANTIDIABETIC REGIMEN: * Lantus 12 units SC BID * Novolog 10 units SC AC * Januvia 50 mg PO daily * HbA1c: 6.5% (05/25/24) ASSESSMENT: 08/17: * Ben received 84 units of insulin yesterday (35 were basal) * Fasting BSG elevated this AM and trending up, basal increased up to 30% of home yesterday (well controlled on home regimen based on A1c from April) and fasting still trending up, unclear cause, consider splitting Lantus dose again if BSGs continue to trend up * NovoLog CR loosened later in day and postprandial BSGs increased, tightened again at this time, may need tighter breakfast, will continue to trend 08/15: * Ben received 71 units of insulin yesterday, 30 of which were basal. BSGs were: 123-259-626-96 mg/dL. * Fasting BSG this AM is 133 mg/dL. Will continue with once daily basal insulin dose that was increased yesterday. * BSGs trending down throughout the day. Will continue with tighter bolus coverage with breakfast only but going to loosen carb ratio starting at lunchtime today. * Tolerating T2DM diet well. 08/12: * Ben received a total of 82 units of insulin yesterday (26 units were basal and 56 units were bolus). Despite increased insulin doses, his BSGs were all still above goal ([phone]/dL) yesterday. * Fasting BSG was 211mg/dL this morning. The HS Lantus dose has been increased again and bolus insulin parameters have been tightened. 08/10: * Patient received a total of 64 units of insulin yesterday (24 units were basal and 40 units were bolus). BSGs still above goal with meals. Lunch time BSG has been > 250mg/dL the last several days so will tighten the bolus insulin parameters with breakfast only. * Fasting BSG still elevated at 200mg/dL this morning. Will increase the HS Lantus. 08/08: * Patient received 58 units of insulin yesterday (10 units more than the previous day), BSGS rising with meals yesterday, tighten CR. * Fasting still elevated today, despite increase in basal yesterday, will wait to see if tighter CR fixes high blood sugars, if not, consider increasing basal tomorrow. PLAN FOR INPATIENT GLYCEMIC CONTROL: * Hold outpatient diabetes medications * Basal insulin * Lantus 35 units SC daily at 1130 * Bolus insulin * NovoLog per scale ACHS or Q6hrs while NPO * Goal Range: Low 110 mg/dL - High 150 mg/dL * Breakfast: Correction Factor: 25 mg/dL/unit; Carb ratio of 1 unit per 5 grams CHO consumed * Lunch, Dinner, Bedtime: Correction Factor: 30 mg/dL/unit; Carb ratio of 1 unit per 6 grams CHO consumed
[2024-08-17] MEDS: ACETAMINOPHEN 325 MG TAB PO PRN (09:05)
[2024-08-17 09:20] LABS: INR 2.4 (0.9-1.1); Prothrombin Time 23.9 Seconds (9.0-12.0)
[2024-08-17] MEDS: WARFARIN SOD 2 MG TAB PO SCH (14:23)
--- NOTE | 2024-08-17 17:40 | Hospitalist Progress Note ---
Date of Service August 17, 2024 Assessment & Plan (1) Cellulitis of right leg: Plan 58-year-old man with PMH of HFrEF [EF 30 to 35%, TTE 2024] sp ICD, CAD, VT sp ablation, A-fib/DVT on Coumadin, HTN, HLD, pHTN,/OHS on BPAP, bronchial asthma, T2DM on insulin pump, hypothyroidism, CKD [baseline creatinine of 1.2-1.3], chronic anemia [baseline hemoglobin of 10], mood disorder, RLE osteomyelitis sp surgery, left foot osteomyelitis sp left BKA, morbid obesity who was recently admitted 05/24/2024 to 07/01/2024 for decompensated heart failure/LLE cellulitis and infected chronic right foot ulcer. Wound cultures were negative and patient completed cefepime and meropenem course. There was unsuccessful efforts for rehab/permanent placement at the time and patient was discharged home. Patient was admitted at [facility] July 02 to day after [facility] discharge as patient was found by home health nurse living in deplorable condition. Patient was discharged from the hospital despite case management social worker notifying hospital providers that patient was not safe going home. Per patient's home health nursing reports, patient has trouble getting food/patient confused about medication/patient worried about bilateral painful leg swelling with intermittent bloody drainage/patient fell off of his chair and had to call [email or web address] twice to get him up/patient incapable of transfers and is with bowel incontinence.Patient reports having sore throat/myalgia/na usea/loose stools for last 2 to 3 days [employer]. 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 BLE cellulitis Underlying RLE osteomyelitis Medical noncompliance No sepsis at presentation. Patient with recurrent lower extremity cellulitis likely secondary to noncompliance with medications/diet and patient's functional disability. Admitting imaging: CXR with mild pulmonary edema. C-spine CT and head CT with no acute finding. XR Left lower extremity with no acute bony abnormality, left below-knee amputation noted. Right foot x-ray and right foot CT - suggestive of extensive osteomyelitis. No pathologic fracture noted. CT right lower extremity - suggestive of cellulitis. CT Left knee and BKA stump - suggestive of cellulitis. --Doxycycline 07/16 and cefepime 07/16 ---> ID evaluated 07/18, recs are iv cefepime 2g q8h, linezolid 600 mg q12h EOT 07/30/2024, recommends amputation of RLE. Linezolid and duloxetine has severe interaction of serotonin syndrome, d/w ID 07/18, plan to decrease dose of duloxetine to half and c/w linezolid Podiatry evaluated, recs are RLE amputation vs palliative care. --Patient currently refuses amputation and does not believe he has osteomyelitis despite explaining in detail --Wound culture growing Klebsiella pneumoniae ESBL, Alcaligenes faecalis --Blood cultures negative -- Continue local wound care --Change IV cefepime to ertapenem--completed antibiotic course Continue Zyvox--completed antibiotic course Discussed with infectious disease on 07/27/2024: Recommends to complete antibiotic course on 07/30/2024 as previously planned. Believes antibiotics will not heal his infection. Recommends amputation if patient agrees Patient prefers to follow-up with his primary c d still operator Dr. 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 He does not believe that his foot is infected despite explaining in detail Needs to follow-up with wound care on discharge as well Consulted palliative care to address goals of care Poor prognosis due to noncompliance Office of aging is involved Will need follow-up with podiatry on discharge Plan to discharge to rehab facility when accepted Clinically no significant change from yesterday Case management/office of aging still working on discharge plan Still having trouble finding a place for rehab Stable for discharge Acute kidney injury on CKD III: Volume overload status Creatinine improved to 1.3 avoid nephrotoxic agents as able Monitor Right hip pain Likely due to arthritis No fractures on imaging Follow-up as outpatient pain is controlled Constipation Continue bowel regimen Minimize narcotics as able Resolved Atrial fibrillation: Supratherapeutic INR Continue metoprolol On Coumadin for anticoagulation Monitor INR 2.4 today Adjust Coumadin dose as needed Acute on chronic heart failure with reduced ejection fraction: Recent echo with EF of 30 to 35%, BLE swelling noted, CXR with pulmonary edema at presentation. Likely secondary to medication noncompliance. Monitor I's and O's, monitor and replete electrolytes. Monitor volume status closely Continue lisinopril, metoprolol Transitioned IV Lasix to home oral diuretics Continue on torsemide 40 mg daily, Aldactone 25 mg daily Patient refuses to be on fluid restriction Monitor volume status closely Adult failure to thrive: Medication noncompliance Inability to take care of the self Patient has had numerous hospitalizations in regards to failure to thrive at home Dietary consult, case management consult. PT/OT Office of aging involved Other chronic medical conditions: Continue with/resume home meds as and when abl e. T2DM: Continue insulin. Has been refusing dietary restrictions, insulin PVD: Status post left BKA amputation. Continue with home aspirin and Lipitor. Morbid obesity: BMI 46. Likely contributed to PVD and recurrent cellulitis. Counseling done. NINA on CPAP: Continue CPAP at bedtime. Cardiac defibrillator in situ: Noted Major depression disorder: Continue with duloxetine Lymphedema: Likely contributing to cellulitis. Follow-up with lymphedema clinic as an outpatient. Chronic pain syndrome: c/w oxy and lyrica DVT Px: Warfarin CODE STATUS Full code Admission and Anticipated Discharge Date Admission Date: July 15, 2024 Subjective Patient is seen and examined at bedside States having some right leg pain today Otherwise no complaints Denies any chest pain, dyspnea, nausea, vomiting, abdominal pain Waiting for placement Review of Systems Review of Systems: All systems reviewed & are unremarkable except as noted in Subjective Physical Exam Physical Exam: Physical Exam: Vitals signs as noted above General Appearance:Morbidly Obese, no apparent distress, ill-appearing Head: normocephalic, Atraumatic Eyes: normal inspection, EOMI Neck: supple, Trachea midline Respiratory/Chest: Normal breath sounds, CTA, No accessory muscle use Cardiovascular: Irregularly irregular, No murmur Abdomen/GI:Soft, Non tender, Bowel sounds present Extremities/Musculoskeletal:normal inspection, LE edema, lymphedema, Left BKA +dressing Neurologic/Psych:AAOX3, grossly no focal neurological deficits Skin: normal color, warm Results & Data Results & Data Vital Signs (Past 12 Hours) Vital Signs Temp Pulse Resp BP BP Pulse Ox O2 Del Method 08/17/24 15:04 36.6 C 64 16 123/67 97 Room Air 08/17/24 08:00 Room Air 08/17/24 06:57 36.5 C 65 18 119/76 95 Room Air
[2024-08-18 07:47] LABS: INR 2.4 (0.9-1.1); Prothrombin Time 24.2 Seconds (9.0-12.0)
[2024-08-18] MEDS: LANTUS PER UNIT CHARGE SQ SCH (12:46)
--- NOTE | 2024-08-18 15:32 | Hospitalist Progress Note ---
Date of Service August 18, 2024 Assessment & Plan (1) Cellulitis of right leg: Plan per Dr. Allen's notes with addendum: 58-year-old man with PMH of HFrEF [EF 30 to 35%, TTE 2024] sp ICD, CAD, VT sp ablation, A-fib/DVT on Coumadin, HTN, HLD, pHTN,/OHS on BPAP, bronchial asthma, T2DM on insulin pump, hypothyroidism, CKD [baseline creatinine of 1.2-1.3], chronic anemia [baseline hemoglobin of 10], mood disorder, RLE osteomyelitis sp surgery, left foot osteomyelitis sp left BKA, morbid obesity who was recently admitted 05/24/2024 to 07/01/2024 for decompensated heart failure/LLE cellulitis and infected chronic right foot ulcer. Wound cultures were negative and patient completed cefepime and meropenem course. There was unsuccessful efforts for rehab/permanent placement at the time and patient was discharged home. Patient was admitted at [facility] July 02 to day after [facility] discharge as patient was found by home health nurse living in deplorable condition. Patient was discharged from the hospital despite social worker delinquency prevention notifying hospital providers that patient was not safe going home. Per patient's home health nursing reports, patient has trouble getting food/patient confused about medication/patient worried about bilateral painful leg swelling with intermittent bloody drainage/patient fell off of his chair and had to call [employer] twice to get him up/patient incapable of transfers and is with bowel incontinence.Patient reports having sore throat/myalgia/nausea/loose stools for last 2 to 3 days [employer]. 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 BLE cellulitis Underlying RLE osteomyelitis Medical noncompliance No sepsis at presentation. Patient with recurrent lower extremity cellulitis likely secondary to noncompliance with medications/diet and patient's functional disability. Admitting imaging: CXR with mild pulmonary edema. C-spine CT and head CT with no acute finding. XR Left lower extremity with no acute bony abnormality, left below-knee amputation noted. Right foot x-ray and right foot CT - suggestive of extensive osteomyelitis. No pathologic fracture noted. CT right lower extremity - suggestive of cellulitis. CT Left knee and BKA stump - suggestive of cellulitis. --Doxycycline 07/16 and cefepime 3/22 ---> ID evaluated 07/18, recs are iv cefepime 2g q8h, linezolid 600 mg q12h EOT 07/30/2024, recommends amputation of RLE. Linezolid and duloxetine has severe interaction of serotonin syndrome, d/w ID 07/18, plan to decrease dose of duloxetine to half and c/w linezolid Podiatry evaluated, recs are RLE amputation vs palliative care. --Patient currently refuses amputation and does not believe he has osteomyelitis despite explaining in detail --Wound culture growing Klebsiella pneumoniae ESBL, Alcaligenes faecalis --Blood cultures negative -- Continue local wound care --Change IV cefepime to ertapenem--completed antibiotic course Continue Zyvox--completed antibiotic course Discussed with infectious disease on 07/27/2024: Recommends to complete antibiotic course on 07/30/2024 as previously planned. Believes antibiotics will not heal his infection. 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 He does not believe that his foot is infected despite explaining in detail Needs to follow-up with wound care on discharge as well Consulted palliative care to address goals of care Poor prognosis due to noncompliance Office of aging is involved Will need follow-up with podiatry on discharge Plan to discharge to rehab facility when accepted Clinically no significant change from yesterday Case management/office of aging still working on discharge plan Still having trouble finding a place for rehab Stable for discharge 08/18 Right knee pain Lidoderm patch ordered Diarrhea C. difficile PCR ordered Acute kidney injury on CKD III: Volume overload status Creatinine improved to 1.3 avoid nephrotoxic agents as able Monitor Right hip pain Likely due to arthritis No fractures on imaging Follow-up as outpatient pain is controlled Constipation Continue bowel regimen Minimize narcotics as able Resolved Atrial fibrillation: Supratherapeutic INR Continue metoprolol On Coumadin for anticoagulation Monitor INR 2.4 today Adjust Coumadin dose as needed -- INR 2.4 Acute on chronic heart failure with reduced ejection fraction: Recent echo with EF of 30 to 35%, BLE swelling noted, CXR with pulmonary edema at presentation. Likely secondary to medication noncompliance. Monitor I's and O's, monitor and replete electrolytes. Monitor volume status closely Continue lisinopril, metoprolol Transitioned IV Lasix to home oral diuretics Continue on torsemide 40 mg daily, Aldactone 25 mg daily Patient refuses to be on fluid restriction Monitor volume status closely Adult failure to thrive: Medication noncompliance Inability to take care of the self Patient has had numerous hospitalizations in regards to failure to thrive at home Dietary consult, case management consult. PT/OT Office of aging involved Other chronic medical conditions: Continue with/resume home meds as and when able. T2DM: Continue insulin. Has been refusing dietary restrictions, insulin PVD: Status post left BKA amputation. Continue with home aspirin and Lipitor. Morbid obesity: BMI 46. Likely contributed to PVD and recurrent cellulitis. Counseling done. NINA on CPAP: Continue CPAP at bedtime. Cardiac defibrillator in situ: Noted Major depression disorder: Continue with duloxetine Lymphedema: Likely contributing to cellulitis. Follow-up with lymphedema clinic as an outpatient. Chronic pain syndrome: c/w oxy and lyrica DVT Px: Warfarin CODE STATUS Full code Admission and Anticipated Discharge Date Admission Date: July 15, 2024 Subjective follow-up for right foot wound, etc. seen resting in bed, comfortable, watching TV States he feels fine overall except having some right knee pain Also reports 5 loose bowel movements today, no blood, no abdominal pain or nausea No other new symptoms Review of Systems Review of Systems: all noted and negative except for above Physical Exam Physical Exam: General- oriented x 3, not in distress, speaks in sentences with no effort or accessory muscle use Eyes- anicteric Neck- no JVD Lungs- clear breath sounds bilaterally, no rales/wheezes Heart- normal rate, regular rhythm; no murmurs Abdomen- normal bowel sounds, nondistended, soft, nontender Extremities- right knee: No erythema/hematoma/warmth, positive mild tenderness Right lower leg trace edema, anterior wound scabbed left lower extremity, status post AKA 8 Neuro- alert, oriented x 3; no gross focal neurologic deficits Skin- warm & dry Results & Data Results & Data Vital Signs (Past 12 Hours) Vital Signs Temp Pulse Pulse Resp BP Pulse Ox O2 Del Method 08/18/24 14:34 36.8 C 72 18 120/65 98 Room Air 08/18/24 07:45 Room Air 08/18/24 07:37 36.7 C 66 124/76 98 Room Air all noted and reviewed including below
[2024-08-18] MEDS: LIDOCAINE 5% 1 PATCH TD STA (16:39)
[2024-08-19 08:15] LABS: Basophils % (auto) 1.7 %; Eosinophils # (auto) 0.33 K/uL (0.00-0.50); Eosinophils % (auto) 5.7 %; Hematocrit (blood only) 35.1 % (42.0-52.0); Hemoglobin 11.6 g/dl (14.0-18.0); Immature Granulocytes # (auto) 0.03 K/uL (0.01-0.20); Immature Granulocytes % (auto) 0.5 %; Lymphocytes # (auto) 1.28 K/uL (1.20-3.40); Mean Corpuscular Volume 84.8 fL (80.0-100.0); Mean Platelet Volume 9.6 fL (9.4-12.4); Monocytes # (auto) 0.61 K/uL (0.11-0.59); Monocytes % (auto) 10.5 %; Neutrophils # (auto) 3.47 K/uL (1.40-6.50); Neutrophils % (auto) 59.6 %; Platelet Count 262 K/uL (130-400); RDW Coefficient of Variation 18.1 % (11.5-14.5); RDW Standard Deviation 54.7 fL (36.4-46.3); Red Blood Count 4.14 M/uL (4.70-6.10); White Blood Count 5.82 K/ul (4.8-10.8)
[2024-08-19 08:32] LABS: BUN Creatinine Ratio 35.9 (10-20); Calcium 8.8 mg/dl (8.6-10.3); Creatinine Clr Calc Pharmacy 91.8 ml/min; Magnesium 1.8 mg/dl (1.7-2.4); Potassium 4.3 mmol/L (3.5-5.1)
[2024-08-19 08:36] LABS: INR 2.4 (0.9-1.1)
[2024-08-19] MEDS: LIDOCAINE 5% 1 PATCH TD SCH (09:12)
--- NOTE | 2024-08-19 10:24 | Pharmacy Report ---
Pharmacy Glycemic Short Note 2 - Date of Service August 19, 2024 - Glycemic Short BSG Results (Last 24 hours): 08/18/24 08/18/24 08/18/24 11:25 16:39 20:02 Glucose POC Glucose 124 H 140 H 74 08/19/24 08/19/24 07:28 07:37 Glucose 96 POC Glucose 111 H OUTPATIENT ANTIDIABETIC REGIMEN: * Lantus 12 units SC BID * Novolog 10 units SC AC * Januvia 50 mg PO daily * HbA1c: 6.5% (05/25/24) ASSESSMENT: 08/19: * Ben received 72 units of insulin yesterday (30 were basal) * Fasting BSG this AM acceptable, will trial splitting basal insulin again as BSGs trend down significantly in the evening * No changes to NovoLog regimen at this time. 08/17: * Ben received 84 units of insulin yesterday (35 were basal) * Fasting BSG elevated this AM and trending up, basal increased up to 30% of home yesterday (well controlled on home regimen based on A1c from April) and fasting still trending up, unclear cause, consider splitting Lantus dose again if BSGs continue to trend up * NovoLog CR loosened later in day and postprandial BSGs increased, tightened again at this time, may need tighter breakfast, will continue to trend 08/15: * Ben received 71 units of insulin yesterday, 30 of which were basal. BSGs were: 234-096-010-96 mg/dL. * Fasting BSG this AM is 133 mg/dL. Will continue with once daily basal insulin dose that was increased yesterday. * BSGs trending down throughout the day. Will continue with tighter bolus coverage with breakfast only but going to loosen carb ratio starting at lunchtime today. * Tolerating T2DM diet well. 08/12: * Ben received a total of 82 units of insulin yesterday (26 units were basal and 56 units were bolus). Despite increased insulin doses, his BSGs were all still above goal ([phone]/dL) yesterday. * Fasting BSG was 211mg/dL this morning. The HS Lantus dose has been increased again and bolus insulin parameters have been tightened. 08/10: * Patient received a total of 64 units of insulin yesterday (24 units were basal and 40 units were bolus). BSGs still above goal with meals. Lunch time BSG has been > 250mg/dL the last several days so will tighten the bolus insulin parameters with breakfast only. * Fasting BSG still elevated at 200mg/dL this morning. Will increase the HS Lantus. 08/08: * Patient received 58 units of insulin yesterday (10 units more than the previous day), BSGS rising with meals yesterday, tighten CR. * Fasting still elevated today, despite increase in basal yesterday, will wait to see if tighter CR fixes high blood sugars, if not, consider increasing basal tomorrow. PLAN FOR INPATIENT GLYCEMIC CONTROL: * Hold outpatient diabetes medications * Basal insulin * Lantus 15 units SC BID at 1130,2200 * Bolus insulin * NovoLog per scale ACHS or Q6hrs while NPO * Goal Range: Low 110 mg/dL - High 150 mg/dL * Breakfast: Correction Factor: 25 mg/dL/unit; Carb ratio of 1 unit per 5 grams CHO consumed * Lunch, Dinner, Bedtime: Correction Factor: 30 mg/dL/unit; Carb ratio of 1 unit per 6 grams CHO consumed
[2024-08-19] MEDS: LANTUS PER UNIT CHARGE SQ SCH (12:55)
--- NOTE | 2024-08-19 18:34 | Hospitalist Progress Note ---
Date of Service August 19, 2024 Assessment & Plan (1) Cellulitis of right leg: Plan Mr. Lyle is a 58-year-old man with PMH of HFrEF [EF 30 to 35%, TTE 2024] sp ICD, CAD, VT sp ablation, A-fib/DVT on Coumadin, HTN, HLD, pHTN,/OHS on BPAP, bronchial asthma, T2DM on insulin pump, hypothyroidism, CKD [baseline creatinine of 1.2-1.3], chronic anemia [baseline hemoglobin of 10], mood disorder, RLE osteomyelitis sp surgery, left foot osteomyelitis sp left BKA, morbid obesity who was recently admitted 05/24/2024 to 07/01/2024 for decompensated heart failure/LLE cellulitis and infected chronic right foot ulcer. Wound cultures were negative and patient completed cefepime and meropenem course. There was unsuccessful efforts for rehab/permanent placement at the time and patient was discharged home. Patient was admitted at [facility] July 02 to day after [facility] discharge as patient was found by home health nurse living in deplorable condition. Patient was discharged from the hospital despite social sciences instructor notifying hospital providers that patient was not safe going home. Per patient's home health nursing reports, patient has trouble getting food/patient confused about medication/patient worried about bilateral painful leg swelling with intermittent bloody drainage/patient fell off of his chair and had to call [employer] twice to get him up/patient incapable of transfers and is with bowel incontinence. Today, patient seemingly reports confusion about prolonged hospitalization. Long conservation about his RLE was had discussing that on multiple occasions it has been recommended that his foot undergoes amputation. Despite recent antibiotic course, patient's foot today with malodorous discharge--requested wound care for follow up and photographs. #Recurrent BLE cellulitis #RLE osteomyelitis Medical noncompliance No sepsis at presentation. Patient with recurrent lower extremity cellulitis likely secondary to noncompliance with medications/diet and patient's functional disability. Admitting imaging: CT showed diffuse circumferential soft tissue swelling and edema on RLE w/ XR showing cortical destruction involving the lateral and plantar aspect of the calcaneus, the cuboid and the proximal head of the fifth metatarsal bone, consistent with extensive osteomyelitis CT Left knee and BKA stump - suggestive of cellulitis. Infectious disease consulted: ID evaluated 07/18, recs are iv cefepime 2g q8h, linezolid 600 mg q12h EOT 07/30/2024, recommends amputation of RLE. Linezolid and duloxetine has severe interaction of serotonin syndrome, d/w ID 07/18, plan to decrease dose of duloxetine to half; completed all antibiotics to date Relapse of infection likely per ID Podiatry evaluated, recs are RLE amputation vs palliative care. --Patient currently refuses amputation and does not believe he has osteomyelitis despite explaining in detail --Wound culture growing Klebsiella pneumoniae ESBL, Alcaligenes faecalis --Blood cultures negative -- Continue local wound care Per prior hospitalist, discussed with infectious disease on 07/27/2024: Recommends to complete antibiotic course on 07/30/2024 as previously planned. Believes antibiotics will not heal his infection. Recommends amputation if patient agrees Consulted palliative care to address goals of care: patient with decisional capacity Extensive follow up to be coordinated Reconsult wound care for photograph as wound with notable foul drainage #Failure to thrive Clinically no significant change from yesterday Case management/office of aging still working on discharge plan #Acute kidney injury on CKD III: Volume overloaded elevated to 1.6 Creatinine improved to 1.3 avoid nephrotoxic agents as able Monitor #Right hip pain Likely due to arthritis No fractures on imaging Follow-up as outpatient pain is controlled #Constipation Continue bowel regimen Minimize narcotics as able Resolved #Persistent Atrial fibrillation: #Supratherapeutic INR resoleved Continue metoprolol On Coumadin for anticoagulation Monitor INR 2.4 today Adjust Coumadin dose as needed INR EOD #Acute on chronic heart failure with reduced ejection fraction: resolved Recent echo with EF of 30 to 35%, BLE swelling noted, CXR with pulmonary edema at presentation. Likely secondary to medication noncompliance. Monitor I's and O's, monitor and replete electrolytes. Monitor volume status closely Continue lisinopril, metoprolol Transitioned IV Lasix to home oral diuretics Continue on torsemide 40 mg daily, Aldactone 25 mg daily Patient refuses to be on fluid restriction Monitor volume status closely Other chronic medical conditions: Continue with/resume home meds as and when able. T2DM: Continue insulin. Has been refusing dietary restrictions, insulin PVD: Status post left BKA amputation. Continue with home aspirin and Lipitor. Morbid obesity: BMI 46. Likely contributed to PVD and recurrent cellulitis. Counseling done. NINA on CPAP: Continue CPAP at bedtime. Cardiac defibrillator in situ: Noted Major depression disorder: Continue with duloxetine Lymphedema: Likely contributing to cellulitis. Follow-up with lymphedema clinic as an outpatient. Chronic pain syndrome: c/w oxy and lyrica DVT Px: Warfarin DNR/DNI Dispo contingent on placement Admission and Anticipated Discharge Date Admission Date: July 15, 2024 Subjective NAEO reports frustration with situation, verbalizes understanding;however, continues to suggest that the concern for failure to thrive is a misunderstanding Evaluated foot and discussed that it is very unlikely that the foot will heal and infection will return, that amputation is one way to prevent it--he states that he "knows [he] will likely get sepsis or infection again" Patient denies any acute concerns but reports frustration with ongoing process, worked to provide verbal support Physical Exam Constitutional: WD/WN, vitals as above Respiratory: normal respiratory effort, lungs clear to auscultation Cardiovascular: irregularly irregular Musculoskeletal: LLE stump with no signs of residual cellulitis RLE with excoriations and dry skin, dressing of RLE removed to reveal saturated dressing with foul odor and discharge Results & Data Results & Data Vital Signs (Past 12 Hours) Vital Signs Temp Pulse Pulse Resp BP BP Pulse Ox 08/19/24 15:32 36.8 C 60 16 115/63 97 08/19/24 13:27 36.5 C 76 17 116/66 100 08/19/24 08:37 08/19/24 07:19 36.5 C 66 17 128/73 96 O2 Del Method 08/19/24 15:32 Room Air 08/19/24 13:27 Room Air 08/19/24 08:37 Room Air 08/19/24 07:19 Room Air Laboratory Results Home Medications Medication Instructions Recorded Confirmed Last Taken acetaminophen 325 mg tablet 650 mg PO QID PRN Pain 02/08/24 07/15/24 Unknown (Tylenol) aspirin 81 mg tablet,delayed 81 mg PO DAILY 02/08/24 07/15/24 07/15/24 release atorvastatin 80 mg tablet 80 mg PO DAILY 02/08/24 07/15/24 07/15/24 levothyroxine 88 mcg tablet 88 mcg PO DAILYBB 02/08/24 07/15/24 07/15/24 oxycodone 10 mg tablet 10 mg PO Q8H PRN Pain, Severe 02/08/24 07/15/24 05/22/24 spironolactone 25 mg tablet 25 mg PO DAILY 02/09/24 07/15/24 07/15/24 triamcinolone acetonide 0.1 % 1 applic topical TID 02/09/24 07/15/24 07/15/24 08:00 lotion ammonium lactate 12 % lotion 1 applic topical DAILY DRY SKIN ON 05/24/24 07/15/24 07/15/24 LEGS betamethasone dipropionate 0.05 % 1 applic topical BID 05/24/24 07/15/24 07/15/24 08:00 topical cream loratadine 10 mg tablet 10 mg PO DAILY 05/24/24 07/15/24 07/15/24 torsemide 20 mg tablet 40 mg PO QAM 05/24/24 07/15/24 07/15/24 duloxetine 60 mg capsule,delayed 60 mg PO QAM #30 caps 07/01/24 07/15/24 07/15/24 release pregabalin 75 mg capsule (Lyrica) 75 mg PO TID #90 caps 07/01/24 07/15/24 07/15/24 08:00 warfarin 2 mg tablet 2 mg PO DAILY@1600 #30 tabs 07/01/24 07/15/24 07/14/24 insulin syringe,safety needle 0.5 #200 ea 07/08/24 07/15/24 Unknown mL 29 gauge x 1/2" (BD SafetyGlide Insulin Syringe) dicyclomine 10 mg capsule 10 mg PO QID PRN ABD PAIN 07/15/24 07/15/24 Unknown ergocalciferol (vitamin D2) 1,250 1,250 mcg PO WK 07/15/24 07/15/24 07/12/24 mcg (50,000 unit) capsule (Vitamin D2) ferrous sulfate 325 mg (65 mg 325 mg PO BID 07/15/24 07/15/24 07/15/24 08:00 iron) tablet insulin aspart (niacinamide) 10 unit subcut AC 07/15/24 07/15/24 07/15/24 12:00 (U-100) 100 unit/mL subcutaneous solution insulin glargine 100 unit/mL (3 12 unit subcut BID 07/15/24 07/15/24 07/15/24 08:00 mL) subcutaneous pen (Lantus Solostar U-100 Insulin) lisinopril 5 mg tablet 5 mg PO DAILY 07/15/24 07/15/24 07/15/24 metoprolol succinate 50 mg 150 mg PO QAM 07/15/24 07/15/24 07/15/24 tablet,extended release 24 hr multivit,tx with iron 27 1 tab PO DAILY 07/15/24 07/15/24 07/15/24 gh-hteozbt-tttce acid 0.4 mg-minerals tablet nystatin 100,000 unit/gram topical 1 applic topical BID 07/15/24 07/15/24 07/15/24 08:00 powder omeprazole 20 mg capsule,delayed 20 mg PO BID 07/15/24 07/15/24 07/15/24 08:00 release potassium chloride 20 mEq 20 meq PO BID 07/15/24 07/15/24 07/15/24 08:00 tablet,extended release(part/cryst) sitagliptin phosphate 50 mg tablet 50 mg PO DAILY 07/15/24 07/15/24 07/15/24 (Januvia) torsemide 20 mg tablet 20 mg PO QPM 07/15/24 07/15/24 07/14/24 Active Medications Generic Name Dose Route Start Last Admin Trade Name Freq PRN Reason Stop Dose Admin Acetaminophen 650 mg 08/15/24 13:08 08/18/24 16:53 Acetaminophen 325 Mg Tab PO 09/14/24 13:07 650 mg Q4H PRN Administration Pain or Fever Aspirin 81 mg 08/16/24 09:00 08/19/24 09:12 Aspirin 81 Mg Ectab PO 10/22/24 08:59 81 mg QAM MATT Administration Atorvastatin Calcium 80 mg 08/16/24 09:00 08/19/24 09:12 Atorvastatin 40 Mg Tab PO 10/22/24 08:59 80 mg QAM MATT Administration Docusate Sodium 100 mg 07/29/24 15:50 08/19/24 09:12 Docusate Sodium 100 Mg Cap PO 10/22/24 15:49 100 mg BID MATT Administration Duloxetine HCl 30 mg 07/19/24 09:00 08/19/24 09:15 Duloxetine Hcl 30 Mg Cap PO 10/22/24 08:59 30 mg QAM MATT Administration Ergocalciferol 1,250 mcg 07/19/24 09:00 08/16/24 07:10 Ergocalciferol 1250 Mcg (50,000 Units) Cap PO 09/08/24 08:59 1,250 mcg Tu@0900 MATT Administration Ferrous Sulfate 325 mg 08/15/24 17:00 08/19/24 17:42 Ferrous Sulfate 325 Mg Tab PO 10/22/24 16:59 325 mg BIDM MATT Administration Insulin Aspart 0 units 08/13/24 16:30 08/19/24 17:40 Insulin Aspart Per Unit Charge SC 10/22/24 11:29 11 units 1130,1630,2100 MATT Administration Insulin Aspart 0 units 08/14/24 07:30 08/19/24 09:05 Insulin Aspart Per Unit Charge SC 10/22/24 07:29 12 units 0730 MATT Administration Insulin Glargine 15 units 08/19/24 11:30 08/19/24 12:55 Lantus Per Unit Charge SQ 09/18/24 11:29 15 units BID@1130,2200 MATT Administration Lactic Acid 1 gm 08/16/24 09:00 08/19/24 09:24 Ammonium Lactate 12% Lotion 225 Gm Btl EXT 10/22/24 08:59 1 gm DAILY MATT Administration Levothyroxine Sodium 88 mcg 08/16/24 06:30 08/19/24 05:48 Levothyroxine Sodium 88 Mcg Tablet PO 10/22/24 06:29 88 mcg DAILYBB MATT Administration Lidocaine 1 patch 08/19/24 09:00 08/19/24 09:12 Lidocaine 5% 1 Patch TD 09/18/24 08:59 1 patch QAM MATT Administration Lisinopril 5 mg 08/16/24 09:00 08/19/24 09:14 Lisinopril 5 Mg Tab PO 10/22/24 08:59 5 mg QAM MATT Administration Loratadine 10 mg 08/16/24 09:00 08/19/24 09:13 Loratadine 10 Mg Tab PO 09/15/24 08:59 10 mg QAM MATT Administration Metoprolol Succinate 150 mg 08/16/24 09:00 08/19/24 09:14 Metoprolol Succ 50mg Ext Rel Tab PO 10/22/24 08:59 150 mg QAM MATT Administration Miconazole Nitrate 1 appln 08/11/24 16:45 08/13/24 06:57 Miconazole Nitrate Powder 85 Gm EXT 10/22/24 16:44 1 appln BID PRN Administration Itching Miscellaneous 1 each 08/18/24 21:00 08/18/24 21:55 Remove Lidoderm Patch N/A 09/17/24 20:59 Not Given DAILY@2100 MATT Multivitamins 1 tab 08/16/24 09:00 08/19/24 09:14 Multivitamin Tab PO 09/15/24 08:59 1 tab QAM MATT Administration Nystatin/Triamcinolone Acetonide 1 appln 07/31/24 13:30 08/19/24 09:15 Nystatin/Triamcin Cr 15 Gm Tube EXT 10/22/24 20:59 1 appln BID MATT Administration Ondansetron HCl 4 mg 07/21/24 14:33 08/19/24 17:45 Ondansetron Inj 2 Mg/Ml 2 Ml Vial IV 10/22/24 14:32 4 mg Q6H PRN Administration Nausea And Vomiting Oxycodone HCl 5 mg 08/15/24 13:03 08/18/24 16:53 Oxycodone Hcl Ir 5 Mg Tab (Immediate Release) PO 08/29/24 13:02 5 mg Q6H PRN Administration Pain Pantoprazole Sodium 40 mg 08/15/24 21:00 08/19/24 09:14 Pantoprazole 40 Mg Tab PO 10/22/24 20:59 40 mg BID MATT Administration Polyethylene Glycol 17 gm 07/29/24 16:00 08/19/24 09:15 Polyethylene (Miralax) 17 Gm Pack PO 10/22/24 15:59 Not Given DAILY MATT Potassium Chloride 20 meq 07/16/24 21:00 08/19/24 09:14 Potassium Chloride Crtab 20 Meq Tabcr PO 10/22/24 20:59 20 meq BID MATT Administration Pregabalin 75 mg 08/15/24 14:00 08/19/24 17:40 Pregabalin 75 Mg Cap PO 10/22/24 13:59 75 mg TID MATT Administration Spironolactone 25 mg 07/17/24 09:00 08/19/24 09:13 Spironolactone 25 Mg Tab PO 10/22/24 08:59 25 mg DAILY MATT Administration Torsemide 40 mg 08/15/24 17:00 08/19/24 17:42 Torsemide 20 Mg Tab PO 10/22/24 16:59 40 mg DAILY@1700 [facility] Administration Warfarin Sodium 2 mg 08/17/24 16:00 08/19/24 17:40 Warfarin Sod 2 Mg Tab PO 09/16/24 15:59 2 mg DAILY@1600 [facility] Administration Medications Administered Home Medications Medication Instructions Recorded Confirmed Last Taken acetaminophen 325 mg tablet 650 mg PO QID PRN Pain 02/08/24 07/15/24 Unknown (Tylenol) aspirin 81 mg tablet,delayed 81 mg PO DAILY 02/08/24 07/15/24 07/15/24 release atorvastatin 80 mg tablet 80 mg PO DAILY 02/08/24 07/15/24 07/15/24 levothyroxine 88 mcg tablet 88 mcg PO DAILYBB 02/08/24 07/15/24 07/15/24 oxycodone 10 mg tablet 10 mg PO Q8H PRN Pain, Severe 02/08/24 07/15/24 05/22/24 spironolactone 25 mg tablet 25 mg PO DAILY 02/09/24 07/15/24 07/15/24 triamcinolone acetonide 0.1 % 1 applic topical TID 02/09/24 07/15/24 07/15/24 08:00 lotion ammonium lactate 12 % lotion 1 applic topical DAILY DRY SKIN ON 05/24/24 07/15/24 07/15/24 LEGS betamethasone dipropionate 0.05 % 1 applic topical BID 05/24/24 07/15/24 07/15/24 08:00 topical cream loratadine 10 mg tablet 10 mg PO DAILY 05/24/24 07/15/24 07/15/24 torsemide 20 mg tablet 40 mg PO QAM 05/24/24 07/15/24 07/15/24 duloxetine 60 mg capsule,delayed 60 mg PO QAM #30 caps 07/01/24 07/15/24 07/15/24 release pregabalin 75 mg capsule (Lyrica) 75 mg PO TID #90 caps 07/01/24 07/15/24 07/15/24 08:00 warfarin 2 mg tablet 2 mg PO DAILY@1600 #30 tabs 07/01/24 07/15/24 07/14/24 insulin syringe,safety needle 0.5 #200 ea 07/08/24 07/15/24 Unknown mL 29 gauge x 1/2" (BD SafetyGlide Insulin Syringe) dicyclomine 10 mg capsule 10 mg PO QID PRN ABD PAIN 07/15/24 07/15/24 Unknown ergocalciferol (vitamin D2) 1,250 1,250 mcg PO WK 07/15/24 07/15/24 07/12/24 mcg (50,000 unit) capsule (Vitamin D2) ferrous sulfate 325 mg (65 mg 325 mg PO BID 07/15/24 07/15/24 07/15/24 08:00 iron) tablet insulin aspart (niacinamide) 10 unit subcut AC 07/15/24 07/15/24 07/15/24 12:00 (U-100) 100 unit/mL subcutaneous solution insulin glargine 100 unit/mL (3 12 unit subcut BID 07/15/24 07/15/24 07/15/24 08:00 mL) subcutaneous pen (Lantus Solostar U-100 Insulin) lisinopril 5 mg tablet 5 mg PO DAILY 07/15/24 07/15/24 07/15/24 metoprolol succinate 50 mg 150 mg PO QAM 07/15/24 07/15/24 07/15/24 tablet,extended release 24 hr multivit,tx with iron 27 1 tab PO DAILY 07/15/24 07/15/24 07/15/24 dz-urnzval-reypb acid 0.4 mg-minerals tablet nystatin 100,000 unit/gram topical 1 applic topical BID 07/15/24 07/15/24 07/15/24 08:00 powder omeprazole 20 mg capsule,delayed 20 mg PO BID 07/15/24 07/15/24 07/15/24 08:00 release potassium chloride 20 mEq 20 meq PO BID 07/15/24 07/15/24 07/15/24 08:00 tablet,extended release(part/cryst) sitagliptin phosphate 50 mg tablet 50 mg PO DAILY 07/15/24 07/15/24 07/15/24 (Januvia) torsemide 20 mg tablet 20 mg PO QPM 07/15/24 07/15/24 07/14/24 Active Medications Generic Name Dose Route Start Last Admin Trade Name Godfreyq PRN Reason Stop Dose Admin Acetaminophen 650 mg 08/15/24 13:08 08/18/24 16:53 Acetaminophen 325 Mg Tab PO 09/14/24 13:07 650 mg Q4H PRN Administration Pain or Fever Aspirin 81 mg 08/16/24 09:00 08/19/24 09:12 Aspirin 81 Mg Ectab PO 10/22/24 08:59 81 mg QAM MATT Administration Atorvastatin Calcium 80 mg 08/16/24 09:00 08/19/24 09:12 Atorvastatin 40 Mg Tab PO 10/22/24 08:59 80 mg QAM MATT Administration Docusate Sodium 100 mg 07/29/24 15:50 08/19/24 09:12 Docusate Sodium 100 Mg Cap PO 10/22/24 15:49 100 mg BID MATT Administration Duloxetine HCl 30 mg 07/19/24 09:00 08/19/24 09:15 Duloxetine Hcl 30 Mg Cap PO 10/22/24 08:59 30 mg QAM MATT Administration Ergocalciferol 1,250 mcg 07/19/24 09:00 08/16/24 07:10 Ergocalciferol 1250 Mcg (50,000 Units) Cap PO 09/08/24 08:59 1,250 mcg Tu@0900 MATT Administration Ferrous Sulfate 325 mg 08/15/24 17:00 08/19/24 17:42 Ferrous Sulfate 325 Mg Tab PO 10/22/24 16:59 325 mg BIDM MATT Administration Insulin Aspart 0 units 08/13/24 16:30 08/19/24 17:40 Insulin Aspart Per Unit Charge SC 10/22/24 11:29 11 units 1130,1630,2100 MATT Administration Insulin Aspart 0 units 08/14/24 07:30 08/19/24 09:05 Insulin Aspart Per Unit Charge SC 10/22/24 07:29 12 units 0730 MATT Administration Insulin Glargine 15 units 08/19/24 11:30 08/19/24 12:55 Lantus Per Unit Charge SQ 09/18/24 11:29 15 units BID@1130,2200 MATT Administration Lactic Acid 1 gm 08/16/24 09:00 08/19/24 09:24 Ammonium Lactate 12% Lotion 225 Gm Btl EXT 10/22/24 08:59 1 gm DAILY MTAT Administration Levothyroxine Sodium 88 mcg 08/16/24 06:30 08/19/24 05:48 Levothyroxine Sodium 88 Mcg Tablet PO 10/22/24 06:29 88 mcg DAILYBB MATT Administration Lidocaine 1 patch 08/19/24 09:00 08/19/24 09:12 Lidocaine 5% 1 Patch TD 09/18/24 08:59 1 patch QAM MATT Administration Lisinopril 5 mg 08/16/24 09:00 08/19/24 09:14 Lisinopril 5 Mg Tab PO 10/22/24 08:59 5 mg QAM MATT Administration Loratadine 10 mg 08/16/24 09:00 08/19/24 09:13 Loratadine 10 Mg Tab PO 09/15/24 08:59 10 mg QAM MATT Administration Metoprolol Succinate 150 mg 08/16/24 09:00 08/19/24 09:14 Metoprolol Succ 50mg Ext Rel Tab PO 10/22/24 08:59 150 mg QAM MATT Administration Miconazole Nitrate 1 appln 08/11/24 16:45 08/13/24 06:57 Miconazole Nitrate Powder 85 Gm EXT 10/22/24 16:44 1 appln BID PRN Administration Itching Miscellaneous 1 each 08/18/24 21:00 08/18/24 21:55 Remove Lidoderm Patch N/A 09/17/24 20:59 Not Given DAILY@2100 [facility] Multivitamins 1 tab 08/16/24 09:00 08/19/24 09:14 Multivitamin Tab PO 09/15/24 08:59 1 tab QAM MATT Administration Nystatin/Triamcinolone Acetonide 1 appln 07/31/24 13:30 08/19/24 09:15 Nystatin/Triamcin Cr 15 Gm Tube EXT 10/22/24 20:59 1 appln BID MATT Administration Ondansetron HCl 4 mg 07/21/24 14:33 08/19/24 17:45 Ondansetron Inj 2 Mg/Ml 2 Ml Vial IV 10/22/24 14:32 4 mg Q6H PRN Administration Nausea And Vomiting Oxycodone HCl 5 mg 08/15/24 13:03 08/18/24 16:53 Oxycodone Hcl Ir 5 Mg Tab (Immediate Release) PO 08/29/24 13:02 5 mg Q6H PRN Administration Pain Pantoprazole Sodium 40 mg 08/15/24 21:00 08/19/24 09:14 Pantoprazole 40 Mg Tab PO 10/22/24 20:59 40 mg BID MATT Administration Polyethylene Glycol 17 gm 07/29/24 16:00 08/19/24 09:15 Polyethylene (Miralax) 17 Gm Pack PO 10/22/24 15:59 Not Given DAILY MATT Potassium Chloride 20 meq 07/16/24 21:00 08/19/24 09:14 Potassium Chloride Crtab 20 Meq Tabcr PO 10/22/24 20:59 20 meq BID MATT Administration Pregabalin 75 mg 08/15/24 14:00 08/19/24 17:40 Pregabalin 75 Mg Cap PO 10/22/24 13:59 75 mg TID MATT Administration Spironolactone 25 mg 07/17/24 09:00 08/19/24 09:13 Spironolactone 25 Mg Tab PO 10/22/24 08:59 25 mg DAILY MATT Administration Torsemide 40 mg 08/15/24 17:00 08/19/24 17:42 Torsemide 20 Mg Tab PO 10/22/24 16:59 40 mg DAILY@1700 MATT Administration Warfarin Sodium 2 mg 08/17/24 16:00 08/19/24 17:40 Warfarin Sod 2 Mg Tab PO 09/16/24 15:59 2 mg DAILY@1600 MATT Administration
[2024-08-20] MEDS: KETOROLAC TROMETHAMINE 15 MG/ML VIAL IV ONE ×2 (04:26→20:31)
[2024-08-20 07:30] LABS: INR 2.2 (0.9-1.1); Prothrombin Time 22.2 Seconds (9.0-12.0)
--- NOTE | 2024-08-20 11:01 | Hospitalist Progress Note ---
Date of Service August 20, 2024 Assessment & Plan (1) Cellulitis of right leg: Plan Mr. Lyle is a 58-year-old man with PMH of HFrEF [EF 30 to 35%, TTE 2024] sp ICD, CAD, VT sp ablation, A-fib/DVT on Coumadin, HTN, HLD, pHTN,/OHS on BPAP, bronchial asthma, T2DM on insulin pump, hypothyroidism, CKD [baseline creatinine of 1.2-1.3], chronic anemia [baseline hemoglobin of 10], mood disorder, RLE osteomyelitis sp surgery, left foot osteomyelitis sp left BKA, morbid obesity who was recently admitted 05/24/2024 to 07/01/2024 for decompensated heart failure/LLE cellulitis and infected chronic right foot ulcer. Wound cultures were negative and patient completed cefepime and meropenem course. There was unsuccessful efforts for rehab/permanent placement at the time and patient was discharged home. Patient was admitted at [facility] July 02 to day after [facility] discharge as patient was found by home health nurse living in deplorable condition. Patient was discharged from the hospital despite forensic social worker notifying hospital providers that patient was not safe going home. Per patient's home health nursing reports, patient has trouble getting food/patient confused about medication/patient worried about bilateral painful leg swelling with intermittent bloody drainage/patient fell off of his chair and had to call [facility] twice to get him up/patient incapable of transfers and is with bowel incontinence. Today, patient notes that he is frustrated and experiencing pain in his right hip with his position in bed. Offered a low air mattress, patient declined. Patient agreeable to trial of sitting in wheelchair for some time today to hopeful aid in positioning to sooth discomfort #Recurrent BLE cellulitis #RLE osteomyelitis Medical noncompliance No sepsis at presentation. Patient with recurrent lower extremity cellulitis likely secondary to noncompliance with medications/diet and patient's functional disability. Admitting imaging: CT showed diffuse circumferential soft tissue swelling and edema on RLE w/ XR showing cortical destruction involving the lateral and plantar aspect of the calcaneus, the cuboid and the proximal head of the fifth metatarsal bone, consistent with extensive osteomyelitis CT Left knee and BKA stump - suggestive of cellulitis. Infectious disease consulted: ID evaluated 07/18, recs are iv cefepime 2g q8h, linezolid 600 mg q12h EOT 07/30/2024, recommends amputation of RLE. Linezolid and duloxetine has severe interaction of serotonin syndrome, d/w ID 07/18, plan to decrease dose of duloxetine to half; completed all antibiotics to date Relapse of infection likely per ID Podiatry evaluated, recs are RLE amputation vs palliative care. --Patient currently refuses amputation and does not believe he has osteomyelitis despite explaining in detail --Wound culture growing Klebsiella pneumoniae ESBL, Alcaligenes faecalis --Blood cultures negative -- Continue local wound care Per prior hospitalist, discussed with infectious disease on 07/27/2024: Recommends to complete antibiotic course on 07/30/2024 as previously planned. Believes antibiotics will not heal his infection. Recommends amputation if patient agrees Consulted palliative care to address goals of care: patient with decisional capacity Extensive follow up to be coordinated Reconsult wound care for photograph as wound with notable foul drainage #Failure to thrive Clinically no significant change from yesterday Case management/office of aging still working on discharge plan #Acute kidney injury on CKD III: Volume overloaded elevated to 1.6 Creatinine improved to 1.3 avoid nephrotoxic agents as able Monitor #Right hip pain Likely due to arthritis No fractures on imaging Follow-up as outpatient trial IV tylenol x 1 heat as needed Up in chair with assistance #Constipation Continue bowel regimen Minimize narcotics as able Resolved #Persistent Atrial fibrillation: #Supratherapeutic INR resoleved Continue metoprolol On Coumadin for anticoagulation Will check INR in Thursday am #Acute on chronic heart failure with reduced ejection fraction: resolved Recent echo with EF of 30 to 35%, BLE swelling noted, CXR with pulmonary edema at presentation. Likely secondary to medication noncompliance. Monitor I's and O's, monitor and replete electrolytes. Monitor volume status closely Continue lisinopril, metoprolol Transitioned IV Lasix to home oral diuretics Continue on torsemide 40 mg daily, Aldactone 25 mg daily Patient refuses to be on fluid restriction Monitor volume status closely Other chronic medical conditions: Continue with/resume home meds as and when able. T2DM: Continue insulin. Has been refusing dietary restrictions, insulin PVD: Status post left BKA amputation. Continue with home aspirin and Lipitor. Morbid obesity: BMI 46. Likely contributed to PVD and recurrent cellulitis. Counseling done. NINA on CPAP: Continue CPAP at bedtime. Cardiac defibrillator in situ: Noted Major depression disorder: Continue with duloxetine Lymphedema: Likely contributing to cellulitis. Follow-up with lymphedema clinic as an outpatient. Chronic pain syndrome: c/w oxy and lyrica DVT Px: Warfarin DNR/DNI Dispo contingent on placement I spent a total of 55 minutes coordinating, documenting, and providing care for this patient excluding time spent in the performance of separately billed services. Admission and Anticipated Discharge Date Admission Date: July 15, 2024 Subjective Reports right hip pain today with radiation down RLE Discussed attempting to get patient to sit in wheelchair for some time today with NWB on RLE Physical Exam Constitutional: WD/WN, vitals as above Respiratory: normal respiratory effort, lungs clear to auscultation Cardiovascular: irregularly irregular Musculoskeletal: RLE with clean dressing in place, dusky discoloration of RLE on exposed skin with xerosis and excoriations Results & Data Results & Data Vital Signs (Past 12 Hours) Vital Signs Temp Pulse Resp BP Pulse Ox O2 Del Method 08/20/24 07:32 36.5 C 56 L 14 122/78 97 Room Air Laboratory Results INR reviewed at 2.2 Medications Administered Home Medications Medication Instructions Recorded Confirmed Last Taken acetaminophen 325 mg tablet 650 mg PO QID PRN Pain 02/08/24 07/15/24 Unknown (Tylenol) aspirin 81 mg tablet,delayed 81 mg PO DAILY 02/08/24 07/15/24 07/15/24 release atorvastatin 80 mg tablet 80 mg PO DAILY 02/08/24 07/15/24 07/15/24 levothyroxine 88 mcg tablet 88 mcg PO DAILYBB 02/08/24 07/15/24 07/15/24 oxycodone 10 mg tablet 10 mg PO Q8H PRN Pain, Severe 02/08/24 07/15/24 05/22/24 spironolactone 25 mg tablet 25 mg PO DAILY 02/09/24 07/15/24 07/15/24 triamcinolone acetonide 0.1 % 1 applic topical TID 02/09/24 07/15/24 07/15/24 08:00 lotion ammonium lactate 12 % lotion 1 applic topical DAILY DRY SKIN ON 05/24/24 07/15/24 07/15/24 LEGS betamethasone dipropionate 0.05 % 1 applic topical BID 05/24/24 07/15/24 07/15/24 08:00 topical cream loratadine 10 mg tablet 10 mg PO DAILY 05/24/24 07/15/24 07/15/24 torsemide 20 mg tablet 40 mg PO QAM 05/24/24 07/15/24 07/15/24 duloxetine 60 mg capsule,delayed 60 mg PO QAM #30 caps 07/01/24 07/15/24 07/15/24 release pregabalin 75 mg capsule (Lyrica) 75 mg PO TID #90 caps 07/01/24 07/15/24 07/15/24 08:00 warfarin 2 mg tablet 2 mg PO DAILY@1600 #30 tabs 07/01/24 07/15/24 07/14/24 insulin syringe,safety needle 0.5 #200 ea 07/08/24 07/15/24 Unknown mL 29 gauge x 1/2" (BD SafetyGlide Insulin Syringe) dicyclomine 10 mg capsule 10 mg PO QID PRN ABD PAIN 07/15/24 07/15/24 Unknown ergocalciferol (vitamin D2) 1,250 1,250 mcg PO WK 07/15/24 07/15/24 07/12/24 mcg (50,000 unit) capsule (Vitamin D2) ferrous sulfate 325 mg (65 mg 325 mg PO BID 07/15/24 07/15/24 07/15/24 08:00 iron) tablet insulin aspart (niacinamide) 10 unit subcut AC 07/15/24 07/15/24 07/15/24 12:00 (U-100) 100 unit/mL subcutaneous solution insulin glargine 100 unit/mL (3 12 unit subcut BID 07/15/24 07/15/24 07/15/24 08:00 mL) subcutaneous pen (Lantus Solostar U-100 Insulin) lisinopril 5 mg tablet 5 mg PO DAILY 07/15/24 07/15/24 07/15/24 metoprolol succinate 50 mg 150 mg PO QAM 07/15/24 07/15/24 07/15/24 tablet,extended release 24 hr multivit,tx with iron 27 1 tab PO DAILY 07/15/24 07/15/24 07/15/24 [id number] acid 0.4 mg-minerals tablet nystatin 100,000 unit/gram topical 1 applic topical BID 07/15/24 07/15/24 07/15/24 08:00 powder omeprazole 20 mg capsule,delayed 20 mg PO BID 07/15/24 07/15/24 07/15/24 08:00 release potassium chloride 20 mEq 20 meq PO BID 07/15/24 07/15/24 07/15/24 08:00 tablet,extended release(part/cryst) sitagliptin phosphate 50 mg tablet 50 mg PO DAILY 07/15/24 07/15/24 07/15/24 (Januvia) torsemide 20 mg tablet 20 mg PO QPM 07/15/24 07/15/24 07/14/24 Active Medications Generic Name Dose Route Start Last Admin Trade Name Freq PRN Reason Stop Dose Admin Acetaminophen 650 mg 08/15/24 13:08 08/19/24 21:10 Acetaminophen 325 Mg Tab PO 09/14/24 13:07 650 mg Q4H PRN Administration Pain or Fever Aspirin 81 mg 08/16/24 09:00 08/20/24 09:16 Aspirin 81 Mg Ectab PO 10/22/24 08:59 81 mg QAM MATT Administration Atorvastatin Calcium 80 mg 08/16/24 09:00 08/20/24 09:17 Atorvastatin 40 Mg Tab PO 10/22/24 08:59 80 mg QAM MATT Administration Docusate Sodium 100 mg 07/29/24 15:50 08/20/24 09:07 Docusate Sodium 100 Mg Cap PO 10/22/24 15:49 Not Given BID MATT Duloxetine HCl 30 mg 07/19/24 09:00 08/20/24 09:17 Duloxetine Hcl 30 Mg Cap PO 10/22/24 08:59 30 mg QAM MATT Administration Ergocalciferol 1,250 mcg 07/19/24 09:00 08/16/24 07:10 Ergocalciferol 1250 Mcg (50,000 Units) Cap PO 09/08/24 08:59 1,250 mcg Tu@0900 MATT Administration Ferrous Sulfate 325 mg 08/15/24 17:00 08/20/24 09:17 Ferrous Sulfate 325 Mg Tab PO 10/22/24 16:59 325 mg BIDM MATT Administration Insulin Aspart 0 units 08/13/24 16:30 08/19/24 21:11 Insulin Aspart Per Unit Charge SC 10/22/24 11:29 4 units 1130,1630,2100 MATT Administration Insulin Aspart 0 units 08/14/24 07:30 08/20/24 09:13 Insulin Aspart Per Unit Charge SC 10/22/24 07:29 13 units 0730 MATT Administration Insulin Glargine 15 units 08/19/24 11:30 08/19/24 21:18 Lantus Per Unit Charge SQ 09/18/24 11:29 15 units BID@1130,2200 MATT Administration Lactic Acid 1 gm 08/16/24 09:00 08/20/24 09:14 Ammonium Lactate 12% Lotion 225 Gm Btl EXT 10/22/24 08:59 1 gm DAILY MATT Administration Levothyroxine Sodium 88 mcg 08/16/24 06:30 08/20/24 05:50 Levothyroxine Sodium 88 Mcg Tablet PO 10/22/24 06:29 88 mcg DAILYBB MATT Administration Lidocaine 1 patch 08/19/24 09:00 08/20/24 09:18 Lidocaine 5% 1 Patch TD 09/18/24 08:59 1 patch QAM [facility] Administration Lisinopril 5 mg 08/16/24 09:00 08/20/24 09:17 Lisinopril 5 Mg Tab PO 10/22/24 08:59 5 mg QAM MATT Administration Loratadine 10 mg 08/16/24 09:00 08/20/24 09:16 Loratadine 10 Mg Tab PO 09/15/24 08:59 10 mg QAM MATT Administration Metoprolol Succinate 150 mg 08/16/24 09:00 08/20/24 09:23 Metoprolol Succ 50mg Ext Rel Tab PO 10/22/24 08:59 Not Given QAM MATT Miconazole Nitrate 1 appln 08/11/24 16:45 08/13/24 06:57 Miconazole Nitrate Powder 85 Gm EXT 10/22/24 16:44 1 appln BID PRN Administration Itching Miscellaneous 1 each 08/18/24 21:00 08/19/24 21:13 Remove Lidoderm Patch N/A 09/17/24 20:59 1 each DAILY@2100 [facility] Administration Multivitamins 1 tab 08/16/24 09:00 08/20/24 09:16 Multivitamin Tab PO 09/15/24 08:59 1 tab QAM MATT Administration Nystatin/Triamcinolone Acetonide 1 appln 07/31/24 13:30 08/20/24 09:19 Nystatin/Triamcin Cr 15 Gm Tube EXT 10/22/24 20:59 1 appln BID MATT Administration Ondansetron HCl 4 mg 07/21/24 14:33 08/19/24 17:45 Ondansetron Inj 2 Mg/Ml 2 Ml Vial IV 10/22/24 14:32 4 mg Q6H PRN Administration Nausea And Vomiting Oxycodone HCl 5 mg 08/15/24 13:03 08/20/24 09:15 Oxycodone Hcl Ir 5 Mg Tab (Immediate Release) PO 08/29/24 13:02 5 mg Q6H PRN Administration Pain Pantoprazole Sodium 40 mg 08/15/24 21:00 08/20/24 09:17 Pantoprazole 40 Mg Tab PO 10/22/24 20:59 40 mg BID MATT Administration Polyethylene Glycol 17 gm 07/29/24 16:00 08/20/24 09:07 Polyethylene (Miralax) 17 Gm Pack PO 10/22/24 15:59 Not Given DAILY MATT Potassium Chloride 20 meq 07/16/24 21:00 08/20/24 09:15 Potassium Chloride Crtab 20 Meq Tabcr PO 10/22/24 20:59 20 meq BID MATT Administration Pregabalin 75 mg 08/15/24 14:00 08/20/24 09:22 Pregabalin 75 Mg Cap PO 10/22/24 13:59 75 mg TID MATT Administration Spironolactone 25 mg 07/17/24 09:00 08/20/24 09:20 Spironolactone 25 Mg Tab PO 10/22/24 08:59 25 mg DAILY MATT Administration Torsemide 40 mg 08/15/24 17:00 08/19/24 17:42 Torsemide 20 Mg Tab PO 10/22/24 16:59 40 mg DAILY@1700 MATT Administration Warfarin Sodium 2 mg 08/17/24 16:00 08/19/24 17:40 Warfarin Sod 2 Mg Tab PO 09/16/24 15:59 2 mg DAILY@1600 MATT Administration
[2024-08-20] MEDS: ACETAMINOPHEN 1,000 MG/100 ML VIAL IV STA (11:09)
[2024-08-20] MEDS: PREGABALIN 100 MG CAP PO SCH (15:28)
[2024-08-20] MEDS: ACETAMINOPHEN 1,000 MG/100 ML VIAL IV PRN (19:39)
[2024-08-21 07:56] LABS: Hematocrit (blood only) 36.7 % (42.0-52.0); Hemoglobin 11.6 g/dl (14.0-18.0); Mean Corpuscular Hemoglobin 28.1 pg (25.0-34.0); Mean Corpuscular Hgb Conc 31.6 g/dL (32.0-36.0); Mean Corpuscular Volume 88.9 fL (80.0-100.0); Platelet Count 182 K/uL (130-400); RDW Standard Deviation 57.1 fL (36.4-46.3); Red Blood Count 4.13 M/uL (4.70-6.10); White Blood Count 4.71 K/ul (4.8-10.8)
[2024-08-21 08:06] LABS: BUN Creatinine Ratio 39.4 (10-20); Calcium 8.6 mg/dl (8.6-10.3); Creatinine Clr Calc Pharmacy 94.7 ml/min; Potassium 4.6 mmol/L (3.5-5.1)
--- NOTE | 2024-08-21 11:44 | Hospitalist Progress Note ---
Date of Service August 21, 2024 Assessment & Plan (1) Cellulitis of right leg: Plan Mr. Lyle is a 58-year-old man with PMH of HFrEF [EF 30 to 35%, TTE 2024] sp ICD, CAD, VT sp ablation, A-fib/DVT on Coumadin, HTN, HLD, pHTN,/OHS on BPAP, bronchial asthma, T2DM on insulin pump, hypothyroidism, CKD [baseline creatinine of 1.2-1.3], chronic anemia [baseline hemoglobin of 10], mood disorder, RLE osteomyelitis sp surgery, left foot osteomyelitis sp left BKA, morbid obesity who was recently admitted 05/24/2024 to 07/01/2024 for decompensated heart failure/LLE cellulitis and infected chronic right foot ulcer. Wound cultures were negative and patient completed cefepime and meropenem course. There was unsuccessful efforts for rehab/permanent placement at the time and patient was discharged home. Patient was admitted at [facility] July 02 to day after [facility] discharge as patient was found by home health nurse living in deplorable condition. Patient was discharged from the hospital despite hospice social worker notifying hospital providers that patient was not safe going home. Per patient's home health nursing reports, patient has trouble getting food/patient confused about medication/patient worried about bilateral painful leg swelling with intermittent bloody drainage/patient fell off of his chair and had to call [facility] twice to get him up/patient incapable of transfers and is with bowel incontinence. Today, patient aggravated and yelling. Worked to communicate with patient who states he does not wish to have a conversation and is mad--unable to calm down at time of exam. Working to increase medications cautiously. #Right hip pain Likely due to arthritis No fractures on imaging Follow-up as outpatient continue IV Tylenol increased po oxycodone heat as needed Up in chair with assistance #Recurrent BLE cellulitis #RLE osteomyelitis Medical noncompliance No sepsis at presentation. Patient with recurrent lower extremity cellulitis likely secondary to noncompliance with medications/diet and patient's functional disability. Admitting imaging: CT showed diffuse circumferential soft tissue swelling and edema on RLE w/ XR showing cortical destruction involving the lateral and plantar aspect of the calcaneus, the cuboid and the proximal head of the fifth metatarsal bone, consistent with extensive osteomyelitis CT Left knee and BKA stump - suggestive of cellulitis. Infectious disease consulted: ID evaluated 07/18, recs are iv cefepime 2g q8h, linezolid 600 mg q12h EOT 07/30/2024, recommends amputation of RLE. Linezolid and duloxetine has severe interaction of serotonin syndrome, d/w ID 07/18, plan to decrease dose of duloxetine to half; completed all antibiotics to date Relapse of infection likely per ID Podiatry evaluated, recs are RLE amputation vs palliative care. --Patient currently refuses amputation and does not believe he has osteomyelitis despite explaining in detail --Wound culture growing Klebsiella pneumoniae ESBL, Alcaligenes faecalis --Blood cultures negative -- Continue local wound care Per prior hospitalist, discussed with infectious disease on 07/27/2024: Recommends to complete antibiotic course on 07/30/2024 as previously planned. Believes antibiotics will not heal his infection. Recommends amputation if patient agrees Consulted palliative care to address goals of care: patient with decisional capacity Extensive follow up to be coordinated Reconsult wound care for photograph as wound with notable foul drainage #Failure to thrive Clinically no significant change from yesterday Case management/office of aging still working on discharge plan #Acute kidney injury on CKD III: Volume overloaded elevated to 1.6 Creatinine improved to 1.3 avoid nephrotoxic agents as able Monitor #Constipation Continue bowel regimen Minimize narcotics as able Resolved #Persistent Atrial fibrillation: #Supratherapeutic INR resoleved Continue metoprolol On Coumadin for anticoagulation Will check INR in Thursday am #Acute on chronic heart failure with reduced ejection fraction: resolved Recent echo with EF of 30 to 35%, BLE swelling noted, CXR with pulmonary edema at presentation. Likely secondary to medication noncompliance. Monitor I's and O's, monitor and replete electrolytes. Monitor volume status closely Continue lisinopril, metoprolol Transitioned IV Lasix to home oral diuretics Continue on torsemide 40 mg daily, Aldactone 25 mg daily Patient refuses to be on fluid restriction Monitor volume status closely Other chronic medical conditions: Continue with/resume home meds as and when able. T2DM: Continue insulin. Has been refusing dietary restrictions, insulin PVD: Status post left BKA amputation. Continue with home aspirin and Lipitor. Morbid obesity: BMI 46. Likely contributed to PVD and recurrent cellulitis. Counseling done. NINA on CPAP: Continue CPAP at bedtime. Cardiac defibrillator in situ: Noted Major depression disorder: Continue with duloxetine Lymphedema: Likely contributing to cellulitis. Follow-up with lymphedema clinic as an outpatient. Chronic pain syndrome: c/w oxy and lyrica, resumed home dosing DVT Px: Warfarin DNR/DNI Dispo contingent on placement I spent a total of 65 minutes coordinating, documenting, and providing care for this patient excluding time spent in the performance of separately billed services. Admission and Anticipated Discharge Date Admission Date: July 15, 2024 Subjective Patient aggravated this morning and yelling this am Attempted to discuss care with patient but he states he does not wish to have further conversation and was shouting obscenities expressing frustrations with situation Stated this curriculum writer will return later time to discuss but will not engage in vulgarities at this time Physical Exam Constitutional: agitated however, resting in bed quietly prior to entering in room Respiratory: no respiratory distress noted Neurologic: no dysarthria, no apparent focal deificts Results & Data Results & Data Vital Signs (Past 12 Hours) Vital Signs Temp Pulse Resp BP Pulse Ox O2 Del Method 08/21/24 07:34 36.4 C L 76 18 119/74 97 Room Air Laboratory Results Short CBC 08/21/24 Range/Units 07:23 WBC 4.71 L (4.8-10.8) K/ul Hgb 11.6 L (14.0-18.0) g/dl Hct 36.7 L (42.0-52.0) % Plt Count 182 (130-400) K/uL BMP 08/21/24 07:23 Sodium 138 Potassium 4.6 Chloride 107 Carbon Dioxide 26 BUN 50 H Creatinine 1.27 Glucose 208 H Calcium 8.6 Medications Administered Home Medications Medication Instructions Recorded Confirmed Last Taken acetaminophen 325 mg tablet 650 mg PO QID PRN Pain 02/08/24 07/15/24 Unknown (Tylenol) aspirin 81 mg tablet,delayed 81 mg PO DAILY 02/08/24 07/15/24 07/15/24 release atorvastatin 80 mg tablet 80 mg PO DAILY 02/08/24 07/15/24 07/15/24 levothyroxine 88 mcg tablet 88 mcg PO DAILYBB 02/08/24 07/15/24 07/15/24 oxycodone 10 mg tablet 10 mg PO Q8H PRN Pain, Severe 02/08/24 07/15/24 05/22/24 spironolactone 25 mg tablet 25 mg PO DAILY 02/09/24 07/15/24 07/15/24 triamcinolone acetonide 0.1 % 1 applic topical TID 02/09/24 07/15/24 07/15/24 08:00 lotion ammonium lactate 12 % lotion 1 applic topical DAILY DRY SKIN ON 05/24/24 07/15/24 07/15/24 LEGS betamethasone dipropionate 0.05 % 1 applic topical BID 05/24/24 07/15/24 07/15/24 08:00 topical cream loratadine 10 mg tablet 10 mg PO DAILY 05/24/24 07/15/24 07/15/24 torsemide 20 mg tablet 40 mg PO QAM 05/24/24 07/15/24 07/15/24 duloxetine 60 mg capsule,delayed 60 mg PO QAM #30 caps 07/01/24 07/15/24 07/15/24 release pregabalin 75 mg capsule (Lyrica) 75 mg PO TID #90 caps 07/01/24 07/15/24 07/15/24 08:00 warfarin 2 mg tablet 2 mg PO DAILY@1600 #30 tabs 07/01/24 07/15/24 07/14/24 insulin syringe,safety needle 0.5 #200 ea 07/08/24 07/15/24 Unknown mL 29 gauge x 1/2" (BD SafetyGlide Insulin Syringe) dicyclomine 10 mg capsule 10 mg PO QID PRN ABD PAIN 07/15/24 07/15/24 Unknown ergocalciferol (vitamin D2) 1,250 1,250 mcg PO WK 07/15/24 07/15/24 07/12/24 mcg (50,000 unit) capsule (Vitamin D2) ferrous sulfate 325 mg (65 mg 325 mg PO BID 07/15/24 07/15/24 07/15/24 08:00 iron) tablet insulin aspart (niacinamide) 10 unit subcut AC 07/15/24 07/15/24 07/15/24 12:00 (U-100) 100 unit/mL subcutaneous solution insulin glargine 100 unit/mL (3 12 unit subcut BID 0307/15/24 07/15/24 08:00 mL) subcutaneous pen (Lantus Solostar U-100 Insulin) lisinopril 5 mg tablet 5 mg PO DAILY 07/15/24 07/15/24 07/15/24 metoprolol succinate 50 mg 150 mg PO QAM 07/15/24 07/15/24 07/15/24 tablet,extended release 24 hr multivit,tx with iron 27 1 tab PO DAILY 07/15/24 07/15/24 07/15/24 [id number] acid 0.4 mg-minerals tablet nystatin 100,000 unit/gram topical 1 applic topical BID 07/15/24 07/15/24 07/15/24 08:00 powder omeprazole 20 mg capsule,delayed 20 mg PO BID 07/15/24 07/15/24 07/15/24 08:00 release potassium chloride 20 mEq 20 meq PO BID 07/15/24 07/15/24 07/15/24 08:00 tablet,extended release(part/cryst) sitagliptin phosphate 50 mg tablet 50 mg PO DAILY 07/15/24 07/15/24 07/15/24 (Januvia) torsemide 20 mg tablet 20 mg PO QPM 07/15/24 07/15/24 07/14/24 Active Medications Generic Name Dose Route Start Last Admin Trade Name Godfreyq PRN Reason Stop Dose Admin Acetaminophen 650 mg 08/15/24 13:08 08/19/24 21:10 Acetaminophen 325 Mg Tab PO 09/14/24 13:07 650 mg Q4H PRN Administration Pain or Fever Aspirin 81 mg 08/16/24 09:00 08/21/24 09:03 Aspirin 81 Mg Ectab PO 10/22/24 08:59 81 mg QAM MATT Administration Atorvastatin Calcium 80 mg 08/16/24 09:00 08/21/24 09:03 Atorvastatin 40 Mg Tab PO 10/22/24 08:59 80 mg QAM MATT Administration Docusate Sodium 100 mg 07/29/24 15:50 08/21/24 08:57 Docusate Sodium 100 Mg Cap PO 10/22/24 15:49 Not Given BID MATT Ergocalciferol 1,250 mcg 07/19/24 09:00 08/16/24 07:10 Ergocalciferol 1250 Mcg (50,000 Units) Cap PO 09/08/24 08:59 1,250 mcg Tu@0900 MATT Administration Ferrous Sulfate 325 mg 08/15/24 17:00 08/21/24 09:04 Ferrous Sulfate 325 Mg Tab PO 10/22/24 16:59 325 mg BIDM MATT Administration Acetaminophen 1,000 mg in 100 mls @ 400 mls/hr 08/20/24 18:56 08/21/24 10:49 Ofirmev IV 08/23/24 18:55 Infused Q8H PRN Infusion Moderate Pain (Scale 4, 5, 6) Insulin Aspart 0 units 08/13/24 16:30 08/20/24 20:34 Insulin Aspart Per Unit Charge SC 10/22/24 11:29 Not Given 1130,1630,2100 MATT Insulin Aspart 0 units 08/14/24 07:30 08/21/24 09:02 Insulin Aspart Per Unit Charge SC 10/22/24 07:29 22 units 0730 MATT Administration Insulin Glargine 15 units 08/19/24 11:30 08/20/24 21:41 Lantus Per Unit Charge SQ 09/18/24 11:29 Not Given BID@1130,2200 MATT Lactic Acid 1 gm 08/16/24 09:00 08/21/24 09:04 Ammonium Lactate 12% Lotion 225 Gm Btl EXT 10/22/24 08:59 1 gm DAILY MATT Administration Levothyroxine Sodium 88 mcg 08/16/24 06:30 08/21/24 06:10 Levothyroxine Sodium 88 Mcg Tablet PO 10/22/24 06:29 88 mcg DAILYBB MATT Administration Lidocaine 1 patch 08/19/24 09:00 08/21/24 09:04 Lidocaine 5% 1 Patch TD 09/18/24 08:59 1 patch QAM MATT Administration Lisinopril 5 mg 08/16/24 09:00 08/21/24 09:04 Lisinopril 5 Mg Tab PO 10/22/24 08:59 5 mg QAM MATT Administration Loratadine 10 mg 08/16/24 09:00 08/21/24 09:03 Loratadine 10 Mg Tab PO 09/15/24 08:59 10 mg QAM MATT Administration Metoprolol Succinate 150 mg 08/16/24 09:00 08/21/24 09:03 Metoprolol Succ 50mg Ext Rel Tab PO 10/22/24 08:59 150 mg QAM MATT Administration Miconazole Nitrate 1 appln 08/11/24 16:45 08/13/24 06:57 Miconazole Nitrate Powder 85 Gm EXT 10/22/24 16:44 1 appln BID PRN Administration Itching Miscellaneous 1 each 08/18/24 21:00 08/20/24 21:41 Remove Lidoderm Patch N/A 09/17/24 20:59 1 each DAILY@2100 MATT Administration Multivitamins 1 tab 08/16/24 09:00 08/21/24 09:04 Multivitamin Tab PO 09/15/24 08:59 1 tab QAM MATT Administration Nystatin/Triamcinolone Acetonide 1 appln 07/31/24 13:30 08/21/24 09:13 Nystatin/Triamcin Cr 15 Gm Tube EXT 10/22/24 20:59 1 appln BID MATT Administration Ondansetron HCl 4 mg 07/21/24 14:33 08/19/24 17:45 Ondansetron Inj 2 Mg/Ml 2 Ml Vial IV 10/22/24 14:32 4 mg Q6H PRN Administration Nausea And Vomiting Pantoprazole Sodium 40 mg 08/15/24 21:00 08/21/24 09:04 Pantoprazole 40 Mg Tab PO 10/22/24 20:59 40 mg BID MATT Administration Polyethylene Glycol 17 gm 07/29/24 16:00 08/21/24 08:57 Polyethylene (Miralax) 17 Gm Pack PO 10/22/24 15:59 Not Given DAILY MATT Potassium Chloride 20 meq 07/16/24 21:00 08/21/24 09:01 Potassium Chloride Crtab 20 Meq Tabcr PO 10/22/24 20:59 20 meq BID MATT Administration Pregabalin 100 mg 08/20/24 14:00 08/21/24 09:02 Pregabalin 100 Mg Cap PO 09/19/24 13:59 100 mg TID MATT Administration Spironolactone 25 mg 07/17/24 09:00 08/21/24 09:06 Spironolactone 25 Mg Tab PO 10/22/24 08:59 25 mg DAILY MATT Administration Torsemide 40 mg 08/15/24 17:00 08/20/24 17:43 Torsemide 20 Mg Tab PO 10/22/24 16:59 40 mg DAILY@1700 MATT Administration Warfarin Sodium 2 mg 08/17/24 16:00 08/20/24 15:29 Warfarin Sod 2 Mg Tab PO 09/16/24 15:59 2 mg DAILY@1600 [facility] Administration
[2024-08-21] MEDS: oxyCODONE HCL IR 5 MG TAB (IMMEDIATE RELEASE) PO STA (13:27)
[2024-08-21] MEDS: oxyCODONE HCL IR 5 MG TAB (IMMEDIATE RELEASE) PO PRN (20:03)
[2024-08-22 06:43] LABS: INR 2.5 (0.9-1.1); Prothrombin Time 25.3 Seconds (9.0-12.0)
[2024-08-22] MEDS: DULoxetine HCL 60 MG CAP PO SCH (08:26)
--- NOTE | 2024-08-22 11:41 | Pharmacy Report ---
Pharmacy Glycemic Short Note 2 - Date of Service August 22, 2024 - Glycemic Short BSG Results (Last 24 hours): 08/21/24 08/21/24 08/22/24 16:38 20:12 07:29 POC Glucose 104 H 119 H 131 H 08/22/24 11:24 POC Glucose 168 H OUTPATIENT ANTIDIABETIC REGIMEN: * Lantus 12 units SC BID * Novolog 10 units SC AC * Januvia 50 mg PO daily * HbA1c: 6.5% (05/25/24) ASSESSMENT: 08/22: * Patient received a total of 74 units of insulin yesterday (30 units were basal and 44 units were bolus). BSGs were [phone]/dL. * Fasting BSG was in the goal range this morning so Lantus will be continued as ordered. * Loosed the CR for lunch, dinner and hs as BSG reading were below goal at dinner and at bedtime. 08/19: * Ben received 72 units of insulin yesterday (30 were basal) * Fasting BSG this AM acceptable, will trial splitting basal insulin again as BSGs trend down significantly in the evening * No changes to NovoLog regimen at this time. 08/17: * Ben received 84 units of insulin yesterday (35 were basal) * Fasting BSG elevated this AM and trending up, basal increased up to 30% of home yesterday (well controlled on home regimen based on A1c from April) and fasting still trending up, unclear cause, consider splitting Lantus dose again if BSGs continue to trend up * NovoLog CR loosened later in day and postprandial BSGs increased, tightened again at this time, may need tighter breakfast, will continue to trend 08/15: * Ben received 71 units of insulin yesterday, 30 of which were basal. BSGs were: [phone] mg/dL. * Fasting BSG this AM is 133 mg/dL. Will continue with once daily basal insulin dose that was increased yesterday. * BSGs trending down throughout the day. Will continue with tighter bolus coverage with breakfast only but going to loosen carb ratio starting at lunchtime today. * Tolerating T2DM diet well. 08/12: * Ben received a total of 82 units of insulin yesterday (26 units were basal and 56 units were bolus). Despite increased insulin doses, his BSGs were all still above goal ([phone]/dL) yesterday. * Fasting BSG was 211mg/dL this morning. The HS Lantus dose has been increased again and bolus insulin parameters have been tightened. 08/10: * Patient received a total of 64 units of insulin yesterday (24 units were basal and 40 units were bolus). BSGs still above goal with meals. Lunch time BSG has been > 250mg/dL the last several days so will tighten the bolus insulin parameters with breakfast only. * Fasting BSG still elevated at 200mg/dL this morning. Will increase the HS Lantus. 08/08: * Patient received 58 units of insulin yesterday (10 units more than the previous day), BSGS rising with meals yesterday, tighten CR. * Fasting still elevated today, despite increase in basal yesterday, will wait to see if tighter CR fixes high blood sugars, if not, consider increasing basal tomorrow. PLAN FOR INPATIENT GLYCEMIC CONTROL: * Hold outpatient diabetes medications * Basal insulin * Lantus 15 units SC BID at 1130,2200 * Bolus insulin * NovoLog per scale ACHS or Q6hrs while NPO * Goal Range: Low 110 mg/dL - High 150 mg/dL * Breakfast: Correction Factor: 25 mg/dL/unit; Carb ratio of 1 unit per 4 grams CHO consumed * Lunch, Dinner, Bedtime: Correction Factor: 30 mg/dL/unit; Carb ratio of 1 unit per 8 grams CHO consumed
[2024-08-22] MEDS: HYDROmorphone INJ 0.5 MG/0.5 ML SYR IV STA (13:00)
--- NOTE | 2024-08-22 13:01 | Hospitalist Progress Note ---
Date of Service August 22, 2024 Assessment & Plan (1) Cellulitis of right leg: Plan Mr. Lyle is a 58-year-old man with PMH of HFrEF [EF 30 to 35%, TTE 2024] sp ICD, CAD, VT sp ablation, A-fib/DVT on Coumadin, HTN, HLD, pHTN,/OHS on BPAP, bronchial asthma, T2DM on insulin pump, hypothyroidism, CKD [baseline creatinine of 1.2-1.3], chronic anemia [baseline hemoglobin of 10], mood disorder, RLE osteomyelitis sp surgery, left foot osteomyelitis sp left BKA, morbid obesity who was recently admitted 05/24/2024 to 07/01/2024 for decompensated heart failure/LLE cellulitis and infected chronic right foot ulcer. Wound cultures were negative and patient completed cefepime and meropenem course. There was unsuccessful efforts for rehab/permanent placement at the time and patient was discharged home. Patient was admitted at [facility] July 02 to day after [facility] discharge as patient was found by home health nurse living in deplorable condition. Patient was discharged from the hospital despite psych social worker notifying hospital providers that patient was not safe going home. Per patient's home health nursing reports, patient has trouble getting food/patient confused about medication/patient worried about bilateral painful leg swelling with intermittent bloody drainage/patient fell off of his chair and had to call [employer] twice to get him up/patient incapable of transfers and is with bowel incontinence. Today, patient again aggravated and yelling. Attempted to hold conversation with patient in which he states he is a "prisoner" and has "no life." Attempted to discuss circumstances around continued admission, and worked to explain need for possible amputation. Patient states that he refuses to have amputation because "what life would [he] have." Again worked to have conversation, however patient interjected and stated that he is done and wants some one to explain why he is still here. Discussed case with Care management and requested [facility] liason to call patient and reinforce plan. #Right hip pain Likely due to arthritis No fractures on imaging Follow-up as outpatient continue IV Tylenol increased po oxycodone 10mg q q6 heat as needed Up in chair with assistance #Recurrent BLE cellulitis #RLE osteomyelitis Medical noncompliance No sepsis at presentation. Patient with recurrent lower extremity cellulitis likely secondary to noncompliance with medications/diet and patient's functional disability. Admitting imaging: CT showed diffuse circumferential soft tissue swelling and edema on RLE w/ XR showing cortical destruction involving the lateral and plantar aspect of the calcaneus, the cuboid and the proximal head of the fifth metatarsal bone, consistent with extensive osteomyelitis CT Left knee and BKA stump - suggestive of cellulitis. Infectious disease consulted: ID evaluated 07/18, recs are iv cefepime 2g q8h, linezolid 600 mg q12h EOT 07/30/2024, recommends amputation of RLE. Linezolid and duloxetine has severe interaction of serotonin syndrome, d/w ID 07/18, plan to decrease dose of duloxetine to half; completed all antibiotics to date Relapse of infection likely per ID Podiatry evaluated, recs are RLE amputation vs palliative care. --Patient currently refuses amputation and does not believe he has osteomyelitis despite explaining in detail --Wound culture growing Klebsiella pneumoniae ESBL, Alcaligenes faecalis --Blood cultures negative -- Continue local wound care Per prior hospitalist, discussed with infectious disease on 07/27/2024: Recommends to complete antibiotic course on 07/30/2024 as previously planned. Believes antibiotics will not heal his infection. Recommends amputation if patient agrees Consulted palliative care to address goals of care: patient with decisional capacity Extensive follow up to be coordinated Reviewed images from wound care #Failure to thrive Clinically no significant change from yesterday Case management/office of aging still working on discharge plan #Acute kidney injury on CKD III: resolved Volume overloaded elevated to 1.6 Creatinine improved to 1.3 avoid nephrotoxic agents as able Monitor #Constipation Continue bowel regimen Minimize narcotics as able Resolved #Persistent Atrial fibrillation: #Supratherapeutic INR resolved Continue metoprolol On Coumadin for anticoagulation Will check INR in Thursday am #Acute on chronic heart failure with reduced ejection fraction: resolved Recent echo with EF of 30 to 35%, BLE swelling noted, CXR with pulmonary edema at presentation. Likely secondary to medication noncompliance. Monitor I's and O's, monitor and replete electrolytes. Monitor volume status closely Continue lisinopril, metoprolol Transitioned IV Lasix to home oral diuretics Continue on torsemide 40 mg daily, Aldactone 25 mg daily Patient refuses to be on fluid restriction Monitor volume status closely Other chronic medical conditions: Continue with/resume home meds as and when able. T2DM: Continue insulin. Has been refusing dietary restrictions, insulin PVD: Status post left BKA amputation. Continue with home aspirin and Lipitor. Morbid obesity: BMI 46. Likely contributed to PVD and recurrent cellulitis. Counseling done. NINA on CPAP: Continue CPAP at bedtime. Cardiac defibrillator in situ: Noted Major depression disorder: Continue with duloxetine Lymphedema: Likely contributing to cellulitis. Follow-up with lymphedema clinic as an outpatient. Chronic pain syndrome: c/w oxy and lyrica, resumed home dosing DVT Px: Warfarin DNR/DNI Dispo contingent on placement I spent a total of 55 minutes coordinating, documenting, and providing care for this patient excluding time spent in the performance of separately billed services. Admission and Anticipated Discharge Date Admission Date: July 15, 2024 Subjective Patient remains aggrevated stating he "is a prisoner" Reporting uncontrolled pain to nursing but when asked states "this pain has been here for years" Requested patient consider please transitioning into wheelchair for some time and he declines Physical Exam Constitutional: agitated, otherwise no distress intially upon entering room Respiratory: normal respiratory effort, lungs clear to auscultation Cardiovascular: irregularly irregular Musculoskeletal: RLE dressing CDI Results & Data Results & Data Vital Signs (Past 12 Hours) Vital Signs Temp Pulse Pulse Resp BP Pulse Ox O2 Del Method 08/22/24 12:08 36.5 C 66 20 124/83 97 Room Air 08/22/24 08:29 65 96 Room Air 08/22/24 08:15 Room Air 08/22/24 08:11 37.0 C 59 L 18 112/75 96 Room Air Laboratory Results INR reviewed 2.5 Medications Administered Home Medications Medication Instructions Recorded Confirmed Last Taken acetaminophen 325 mg tablet 650 mg PO QID PRN Pain 02/08/24 07/15/24 Unknown (Tylenol) aspirin 81 mg tablet,delayed 81 mg PO DAILY 02/08/24 07/15/24 07/15/24 release atorvastatin 80 mg tablet 80 mg PO DAILY 02/08/24 07/15/24 07/15/24 levothyroxine 88 mcg tablet 88 mcg PO DAILYBB 02/08/24 07/15/24 07/15/24 oxycodone 10 mg tablet 10 mg PO Q8H PRN Pain, Severe 02/08/24 07/15/24 05/22/24 spironolactone 25 mg tablet 25 mg PO DAILY 02/09/24 07/15/24 07/15/24 triamcinolone acetonide 0.1 % 1 applic topical TID 02/09/24 07/15/24 07/15/24 08:00 lotion ammonium lactate 12 % lotion 1 applic topical DAILY DRY SKIN ON 05/24/24 07/15/24 07/15/24 LEGS betamethasone dipropionate 0.05 % 1 applic topical BID 05/24/24 07/15/24 07/15/24 08:00 topical cream loratadine 10 mg tablet 10 mg PO DAILY 05/24/24 07/15/24 07/15/24 torsemide 20 mg tablet 40 mg PO QAM 05/24/24 07/15/24 07/15/24 duloxetine 60 mg capsule,delayed 60 mg PO QAM #30 caps 07/01/24 07/15/24 07/15/24 release pregabalin 75 mg capsule (Lyrica) 75 mg PO TID #90 caps 07/01/24 07/15/24 07/15/24 08:00 warfarin 2 mg tablet 2 mg PO DAILY@1600 #30 tabs 07/01/24 07/15/24 07/14/24 insulin syringe,safety needle 0.5 #200 ea 07/08/24 07/15/24 Unknown mL 29 gauge x 1/2" (BD SafetyGlide Insulin Syringe) dicyclomine 10 mg capsule 10 mg PO QID PRN ABD PAIN 07/15/24 07/15/24 Unknown ergocalciferol (vitamin D2) 1,250 1,250 mcg PO WK 07/15/24 07/15/24 07/12/24 mcg (50,000 unit) capsule (Vitamin D2) ferrous sulfate 325 mg (65 mg 325 mg PO BID 07/15/24 07/15/24 07/15/24 08:00 iron) tablet insulin aspart (niacinamide) 10 unit subcut AC 07/15/24 07/15/24 07/15/24 12:00 (U-100) 100 unit/mL subcutaneous solution insulin glargine 100 unit/mL (3 12 unit subcut BID 03/07/15/24 07/15/24 08:00 mL) subcutaneous pen (Lantus Solostar U-100 Insulin) lisinopril 5 mg tablet 5 mg PO DAILY 07/15/24 07/15/24 07/15/24 metoprolol succinate 50 mg 150 mg PO QAM 07/15/24 07/15/24 07/15/24 tablet,extended release 24 hr multivit,tx with iron 27 1 tab PO DAILY 07/15/24 07/15/24 07/15/24 du-iiwrqhy-smyxi acid 0.4 mg-minerals tablet nystatin 100,000 unit/gram topical 1 applic topical BID 07/15/24 07/15/24 07/15/24 08:00 powder omeprazole 20 mg capsule,delayed 20 mg PO BID 07/15/24 07/15/24 07/15/24 08:00 release potassium chloride 20 mEq 20 meq PO BID 07/15/24 07/15/24 07/15/24 08:00 tablet,extended release(part/cryst) sitagliptin phosphate 50 mg tablet 50 mg PO DAILY 07/15/24 07/15/24 07/15/24 (Januvia) torsemide 20 mg tablet 20 mg PO QPM 07/15/24 07/15/24 07/14/24 Active Medications Generic Name Dose Route Start Last Admin Trade Name Freq PRN Reason Stop Dose Admin Acetaminophen 650 mg 08/15/24 13:08 08/19/24 21:10 Acetaminophen 325 Mg Tab PO 09/14/24 13:07 650 mg Q4H PRN Administration Pain or Fever Aspirin 81 mg 08/16/24 09:00 08/22/24 08:24 Aspirin 81 Mg Ectab PO 10/22/24 08:59 81 mg QAM MATT Administration Atorvastatin Calcium 80 mg 08/16/24 09:00 08/22/24 08:24 Atorvastatin 40 Mg Tab PO 10/22/24 08:59 80 mg QAM MATT Administration Docusate Sodium 100 mg 07/29/24 15:50 08/22/24 08:27 Docusate Sodium 100 Mg Cap PO 10/22/24 15:49 Not Given BID MATT Duloxetine HCl 60 mg 08/22/24 09:00 08/22/24 08:26 Duloxetine Hcl 60 Mg Cap PO 09/21/24 08:59 60 mg QAM MATT Administration Ergocalciferol 1,250 mcg 07/19/24 09:00 08/16/24 07:10 Ergocalciferol 1250 Mcg (50,000 Units) Cap PO 09/08/24 08:59 1,250 mcg Tu@0900 MATT Administration Ferrous Sulfate 325 mg 08/15/24 17:00 08/22/24 08:25 Ferrous Sulfate 325 Mg Tab PO 10/22/24 16:59 325 mg BIDM MATT Administration Acetaminophen 1,000 mg in 100 mls @ 400 mls/hr 08/20/24 18:56 08/22/24 06:23 Ofirmev IV 08/23/24 18:55 Infused Q8H PRN Infusion Moderate Pain (Scale 4, 5, 6) Insulin Aspart 0 units 08/13/24 16:30 08/22/24 12:35 Insulin Aspart Per Unit Charge SC 10/22/24 11:29 10 units 1130,1630,2100 MATT Administration Insulin Aspart 0 units 08/14/24 07:30 08/22/24 09:05 Insulin Aspart Per Unit Charge SC 10/22/24 07:29 19 units 0730 MATT Administration Insulin Glargine 15 units 08/19/24 11:30 08/22/24 12:35 Lantus Per Unit Charge SQ 09/18/24 11:29 15 units BID@1130,2200 MATT Administration Lactic Acid 1 gm 08/16/24 09:00 08/22/24 08:24 Ammonium Lactate 12% Lotion 225 Gm Btl EXT 10/22/24 08:59 1 gm DAILY MATT Administration Levothyroxine Sodium 88 mcg 08/16/24 06:30 08/22/24 06:02 Levothyroxine Sodium 88 Mcg Tablet PO 10/22/24 06:29 88 mcg DAILYBB MATT Administration Lidocaine 1 patch 08/19/24 09:00 08/22/24 08:27 Lidocaine 5% 1 Patch TD 09/18/24 08:59 1 patch QAM MATT Administration Lisinopril 5 mg 08/16/24 09:00 08/22/24 08:24 Lisinopril 5 Mg Tab PO 10/22/24 08:59 5 mg QAM MATT Administration Loratadine 10 mg 08/16/24 09:00 08/22/24 08:27 Loratadine 10 Mg Tab PO 09/15/24 08:59 10 mg QAM MATT Administration Metoprolol Succinate 150 mg 08/16/24 09:00 08/22/24 08:31 Metoprolol Succ 50mg Ext Rel Tab PO 10/22/24 08:59 150 mg QAM MATT Administration Miconazole Nitrate 1 appln 08/11/24 16:45 08/13/24 06:57 Miconazole Nitrate Powder 85 Gm EXT 10/22/24 16:44 1 appln BID PRN Administration Itching Miscellaneous 1 each 08/18/24 21:00 08/21/24 20:03 Remove Lidoderm Patch N/A 09/17/24 20:59 1 each DAILY@2100 MATT Administration Multivitamins 1 tab 08/16/24 09:00 08/22/24 08:24 Multivitamin Tab PO 09/15/24 08:59 1 tab QAM MATT Administration Nystatin/Triamcinolone Acetonide 1 appln 07/31/24 13:30 08/22/24 08:28 Nystatin/Triamcin Cr 15 Gm Tube EXT 10/22/24 20:59 1 appln BID MATT Administration Ondansetron HCl 4 mg 07/21/24 14:33 08/19/24 17:45 Ondansetron Inj 2 Mg/Ml 2 Ml Vial IV 10/22/24 14:32 4 mg Q6H PRN Administration Nausea And Vomiting Oxycodone HCl 10 mg 08/21/24 11:34 08/22/24 10:40 Oxycodone Hcl Ir 5 Mg Tab (Immediate Release) PO 08/29/24 13:02 10 mg Q6H PRN Administration Pain Pantoprazole Sodium 40 mg 08/15/24 21:00 08/22/24 08:25 Pantoprazole 40 Mg Tab PO 10/22/24 20:59 40 mg BID MATT Administration Polyethylene Glycol 17 gm 07/29/24 16:00 08/22/24 08:28 Polyethylene (Miralax) 17 Gm Pack PO 10/22/24 15:59 Not Given DAILY MATT Potassium Chloride 20 meq 07/16/24 21:00 08/22/24 09:05 Potassium Chloride Crtab 20 Meq Tabcr PO 10/22/24 20:59 20 meq BID MATT Administration Pregabalin 100 mg 08/20/24 14:00 08/22/24 09:05 Pregabalin 100 Mg Cap PO 09/19/24 13:59 100 mg TID MATT Administration Spironolactone 25 mg 07/17/24 09:00 08/22/24 08:28 Spironolactone 25 Mg Tab PO 10/22/24 08:59 25 mg DAILY MATT Administration Torsemide 40 mg 08/15/24 17:00 08/21/24 17:19 Torsemide 20 Mg Tab PO 10/22/24 16:59 40 mg DAILY@1700 MATT Administration Warfarin Sodium 2 mg 08/17/24 16:00 08/21/24 17:14 Warfarin Sod 2 Mg Tab PO 09/16/24 15:59 2 mg DAILY@1600 MATT Administration
[2024-08-23 03:44] LABS: Hematocrit (blood only) 36.6 % (42.0-52.0); Hemoglobin 11.9 g/dl (14.0-18.0); Mean Corpuscular Hemoglobin 27.8 pg (25.0-34.0); Mean Corpuscular Hgb Conc 32.5 g/dL (32.0-36.0); Mean Corpuscular Volume 85.5 fL (80.0-100.0); Mean Platelet Volume 9.1 fL (9.4-12.4); Platelet Count 210 K/uL (130-400); RDW Standard Deviation 54.2 fL (36.4-46.3); Red Blood Count 4.28 M/uL (4.70-6.10); White Blood Count 7.18 K/ul (4.8-10.8)
[2024-08-23 04:00] LABS: BUN Creatinine Ratio 38.9 (10-20); Calcium 8.9 mg/dl (8.6-10.3); Creatinine Clr Calc Pharmacy 111.4 ml/min; Potassium 4.5 mmol/L (3.5-5.1)
[2024-08-23 07:17] VITALS: RESP 16
--- NOTE | 2024-08-23 13:47 | Hospitalist Progress Note ---
Date of Service August 23, 2024 Assessment & Plan (1) Cellulitis of right leg: Plan Mr. Lyle is a 58-year-old man with PMH of HFrEF [EF 30 to 35%, TTE 2024] sp ICD, CAD, VT sp ablation, A-fib/DVT on Coumadin, HTN, HLD, pHTN,/OHS on BPAP, bronchial asthma, T2DM on insulin pump, hypothyroidism, CKD [baseline creatinine of 1.2-1.3], chronic anemia [baseline hemoglobin of 10], mood disorder, RLE osteomyelitis sp surgery, left foot osteomyelitis sp left BKA, morbid obesity who was recently admitted 05/24/2024 to 07/01/2024 for decompensated heart failure/LLE cellulitis and infected chronic right foot ulcer. Wound cultures were negative and patient completed cefepime and meropenem course. There was unsuccessful efforts for rehab/permanent placement at the time and patient was discharged home. Patient was admitted at [facility] July 02 to day after [facility] discharge as patient was found by home health nurse living in deplorable condition. Patient was discharged from the hospital despite director of social services notifying hospital providers that patient was not safe going home. Per patient's home health nursing reports, patient has trouble getting food/patient confused about medication/patient worried about bilateral painful leg swelling with intermittent bloody drainage/patient fell off of his chair and had to call [employer] twice to get him up/patient incapable of transfers and is with bowel incontinence. For last 3 days, patient again aggravated and yelling. Today, able to see patient finally transferred into wheelchair and reports more comfort than bed. Discussed pain regimen, agreed to additional medication to aid with discomfort of transiton. Will give one time dose to ensure only utilized with transitions. Initially refused his medications, then agreed to take this afternoon. Pending discharge to rehab. #Right hip pain Likely due to arthritis No fractures on imaging Follow-up as outpatient continue IV Tylenol increased po oxycodone 10mg q q6 heat as needed Up in chair with assistance #Recurrent BLE cellulitis #RLE osteomyelitis Medical noncompliance No sepsis at presentation. Patient with recurrent lower extremity cellulitis likely secondary to noncompli ance with medications/diet and patient's functional disability. Admitting imaging: CT showed diffuse circumferential soft tissue swelling and edema on RLE w/ XR showing cortical destruction involving the lateral and plantar aspect of the calcaneus, the cuboid and the proximal head of the fifth metatarsal bone, consistent with extensive osteomyelitis CT Left knee and BKA stump - suggestive of cellulitis. Infectious disease consulted: ID evaluated 07/18, recs are iv cefepime 2g q8h, linezolid 600 mg q12h EOT 07/30/2024, recommends amputation of RLE. Linezolid and duloxetine has severe interaction of serotonin syndrome, d/w ID 07/18, plan to decrease dose of duloxetine to half; completed all antibiotics to date Relapse of infection likely per ID Podiatry evaluated, recs are RLE amputation vs palliative care. --Patient currently refuses amputation and does not believe he has osteomyelitis despite explaining in detail --Wound culture growing Klebsiella pneumoniae ESBL, Alcaligenes faecalis --Blood cultures negative -- Continue local wound care Per prior hospitalist, discussed with infectious disease on 07/27/2024: Recommends to complete antibiotic course on 07/30/2024 as previously planned. Believes antibiotics will not heal his infection. Recommends amputation if patient agrees Consulted palliative care to address goals of care: patient with decisional ca pacity Extensive follow up to be coordinated Reviewed images from wound care #Failure to thrive Clinically no significant change from yesterday Case management/office of aging still working on discharge plan #Acute kidney injury on CKD III: resolved Volume overloaded elevated to 1.6 Creatinine improved to 1.3 avoid nephrotoxic agents as able Monitor #Constipation Continue bowel regimen Minimize narcotics as able Resolved #Persistent Atrial fibrillation: #Supratherapeutic INR resolved Continue metoprolol On Coumadin for anticoagulation Will check INR in Thursday #Acute on chronic heart failure with reduced ejection fraction: resolved Recent echo with EF of 30 to 35%, BLE swelling noted, CXR with pulmonary edema at presentation. Likely secondary to medication noncompliance. Monitor I's and O's, monitor and replete electrolytes. Monitor volume status closely Continue lisinopril, metoprolol Transitioned IV Lasix to home oral diuretics Continue on torsemide 40 mg daily, Aldactone 25 mg daily Patient refuses to be on fluid restriction Monitor volume status closely Other chronic medical conditions: Continue with/resume home meds as and when able. T2DM: Continue insulin. Has been refusing dietary restrictions, insulin PVD: Status post left BKA amputation. Continue with home aspirin and Lipitor. Morbid obesity: BMI 46. Likely contributed to PVD and recurrent cellulitis. Counseling done. NINA on CPAP: Continue CPAP at bedtime. Cardiac defibrillator in situ: Noted Major depression disorder: Continue with duloxetine Lymphedema: Likely contributing to cellulitis. Follow-up with lymphedema clinic as an outpatient. Chronic pain syndrome: c/w oxy and lyrica, resumed home dosing DVT Px: Warfarin DNR/DNI Dispo contingent on placement I spent a total of 55 minutes coordinating, documenting, and providing care for this patient excluding time spent in the performance of separately billed services. Admission and Anticipated Discharge Date Admission Date: July 15, 2024 Subjective initially upset and refused all medications however feeling better since transferring into wheelchair states that the transfer does cause occasional pain discussed pain plan for transfer given multiple days without movement Physical Exam Constitutional: WD/WN, vitals as above Respiratory: normal respiratory effort, lungs clear to auscultation Cardiovascular: irregularly irregular Results & Data Results & Data Vital Signs (Past 12 Hours) Vital Signs Temp Pulse Resp BP Pulse Ox O2 Del Method 08/23/24 08:45 Room Air 08/23/24 07:16 36.8 C 66 16 129/65 96 Room Air Laboratory Results Short CBC 08/23/24 Range/Units 03:24 WBC 7.18 (4.8-10.8) K/ul Hgb 11.9 L (14.0-18.0) g/dl Hct 36.6 L (42.0-52.0) % Plt Count 210 (130-400) K/uL BMP 08/23/24 03:24 Sodium 137 Potassium 4.5 Chloride 105 Carbon Dioxide 26 BUN 42 H Creatinine 1.08 Glucose 174 H Calcium 8.9 Medications Administered Home Medications Medication Instructions Recorded Confirmed Last Taken acetaminophen 325 mg tablet 650 mg PO QID PRN Pain 02/08/24 07/15/24 Unknown (Tylenol) aspirin 81 mg tablet,delayed 81 mg PO DAILY 02/08/24 07/15/24 07/15/24 release atorvastatin 80 mg tablet 80 mg PO DAILY 02/08/24 07/15/24 07/15/24 levothyroxine 88 mcg tablet 88 mcg PO DAILYBB 02/08/24 07/15/24 07/15/24 oxycodone 10 mg tablet 10 mg PO Q8H PRN Pain, Severe 02/08/24 07/15/24 05/22/24 spironolactone 25 mg tablet 25 mg PO DAILY 02/09/24 07/15/24 07/15/24 triamcinolone acetonide 0.1 % 1 applic topical TID 02/09/24 07/15/24 07/15/24 08:00 lotion ammonium lactate 12 % lotion 1 applic topical DAILY DRY SKIN ON 05/24/24 07/15/24 07/15/24 LEGS betamethasone dipropionate 0.05 % 1 applic topical BID 05/24/24 07/15/24 07/15/24 08:00 topical cream loratadine 10 mg tablet 10 mg PO DAILY 05/24/24 07/15/24 07/15/24 torsemide 20 mg tablet 40 mg PO QAM 05/24/24 07/15/24 07/15/24 duloxetine 60 mg capsule,delayed 60 mg PO QAM #30 caps 07/01/24 07/15/24 07/15/24 release pregabalin 75 mg capsule (Lyrica) 75 mg PO TID #90 caps 07/01/24 07/15/24 07/15/24 08:00 warfarin 2 mg tablet 2 mg PO DAILY@1600 #30 tabs 07/01/24 07/15/24 07/14/24 insulin syringe,safety needle 0.5 #200 ea 07/08/24 07/15/24 Unknown mL 29 gauge x 1/2" (BD SafetyGlide Insulin Syringe) dicyclomine 10 mg capsule 10 mg PO QID PRN ABD PAIN 07/15/24 07/15/24 Unknown ergocalciferol (vitamin D2) 1,250 1,250 mcg PO WK 07/15/24 07/15/24 07/12/24 mcg (50,000 unit) capsule (Vitamin D2) ferrous sulfate 325 mg (65 mg 325 mg PO BID 07/15/24 07/15/24 07/15/24 08:00 iron) tablet insulin aspart (niacinamide) 10 unit subcut AC 07/15/24 07/15/24 07/15/24 12:00 (U-100) 100 unit/mL subcutaneous solution insulin glargine 100 unit/mL (3 12 unit subcut BID 07/15/24 07/15/24 07/15/24 08:00 mL) subcutaneous pen (Lantus Solostar U-100 Insulin) lisinopril 5 mg tablet 5 mg PO DAILY 07/15/24 07/15/24 07/15/24 metoprolol succinate 50 mg 150 mg PO QAM 07/15/24 07/15/24 07/15/24 tablet,extended release 24 hr multivit,tx with iron 27 1 tab PO DAILY 07/15/24 07/15/24 07/15/24 eb-[id number] acid 0.4 mg-minerals tablet nystatin 100,000 unit/gram topical 1 applic topical BID 07/15/24 07/15/24 07/15/24 08:00 powder omeprazole 20 mg capsule,delayed 20 mg PO BID 07/15/24 07/15/24 07/15/24 08:00 release potassium chloride 20 mEq 20 meq PO BID 07/15/24 07/15/24 07/15/24 08:00 tablet,extended release(part/cryst) sitagliptin phosphate 50 mg tablet 50 mg PO DAILY 07/15/24 07/15/24 07/15/24 (Januvia) torsemide 20 mg tablet 20 mg PO QPM 07/15/24 07/15/24 07/14/24 Active Medications Generic Name Dose Route Start Last Admin Trade Name Freq PRN Reason Stop Dose Admin Acetaminophen 650 mg 08/15/24 13:08 08/19/24 21:10 Acetaminophen 325 Mg Tab PO 09/14/24 13:07 650 mg Q4H PRN Administration Pain or Fever Aspirin 81 mg 08/16/24 09:00 08/23/24 10:02 Aspirin 81 Mg Ectab PO 10/22/24 08:59 Not Given QAM [facility] Atorvastatin Calcium 80 mg 08/16/24 09:00 08/23/24 10:02 Atorvastatin 40 Mg Tab PO 10/22/24 08:59 Not Given QAM [facility] Docusate Sodium 100 mg 07/29/24 15:50 08/23/24 10:02 Docusate Sodium 100 Mg Cap PO 10/22/24 15:49 Not Given BID AMTT Duloxetine HCl 60 mg 08/22/24 09:00 08/23/24 10:02 Duloxetine Hcl 60 Mg Cap PO 09/21/24 08:59 Not Given QAM [facility] Ergocalciferol 1,250 mcg 07/19/24 09:00 08/23/24 08:54 Ergocalciferol 1250 Mcg (50,000 Units) Cap PO 09/08/24 08:59 1,250 mcg Tu@0900 [facility] Administration Ferrous Sulfate 325 mg 08/15/24 17:00 08/23/24 10:02 Ferrous Sulfate 325 Mg Tab PO 10/22/24 16:59 Not Given BIDM [facility] Acetaminophen 1,000 mg in 100 mls @ 400 mls/hr 08/20/24 18:56 08/22/24 06:23 Ofirmev IV 08/23/24 18:55 Infused Q8H PRN Infusion Moderate Pain (Scale 4, 5, 6) Insulin Aspart 0 units 08/13/24 16:30 08/23/24 12:01 Insulin Aspart Per Unit Charge SC 10/22/24 11:29 6 units 1130,1630,2100 [facility] Administration Insulin Aspart 0 units 08/14/24 07:30 08/23/24 08:45 Insulin Aspart Per Unit Charge SC 10/22/24 07:29 22 units 0730 [facility] Administration Insulin Glargine 15 units 08/19/24 11:30 08/23/24 12:05 Lantus Per Unit Charge SQ 09/18/24 11:29 15 units BID@1130,2200 MATT Administration Lactic Acid 1 gm 08/16/24 09:00 08/23/24 10:02 Ammonium Lactate 12% Lotion 225 Gm Btl EXT 10/22/24 08:59 Not Given DAILY [facility] Levothyroxine Sodium 88 mcg 08/16/24 06:30 08/23/24 05:41 Levothyroxine Sodium 88 Mcg Tablet PO 10/22/24 06:29 88 mcg DAILYBB [facility] Administration Lidocaine 1 patch 08/19/24 09:00 08/23/24 10:03 Lidocaine 5% 1 Patch TD 09/18/24 08:59 Not Given QAM [facility] Lisinopril 5 mg 08/16/24 09:00 08/23/24 10:03 Lisinopril 5 Mg Tab PO 10/22/24 08:59 Not Given QAM [facility] Loratadine 10 mg 08/16/24 09:00 08/23/24 10:03 Loratadine 10 Mg Tab PO 09/15/24 08:59 Not Given QAM [facility] Metoprolol Succinate 150 mg 08/16/24 09:00 08/23/24 10:03 Metoprolol Succ 50mg Ext Rel Tab PO 10/22/24 08:59 Not Given QAM [facility] Miconazole Nitrate 1 appln 08/11/24 16:45 08/23/24 08:56 Miconazole Nitrate Powder 85 Gm EXT 10/22/24 16:44 1 appln BID PRN Administration Itching Miscellaneous 1 each 08/18/24 21:00 08/22/24 21:26 Remove Lidoderm Patch N/A 09/17/24 20:59 1 each DAILY@2100 [facility] Administration Multivitamins 1 tab 08/16/24 09:00 08/23/24 10:03 Multivitamin Tab PO 09/15/24 08:59 Not Given QAM [facility] Nystatin/Triamcinolone Acetonide 1 appln 07/31/24 13:30 08/23/24 10:03 Nystatin/Triamcin Cr 15 Gm Tube EXT 10/22/24 20:59 Not Given BID [facility] Ondansetron HCl 4 mg 07/21/24 14:33 08/19/24 17:45 Ondansetron Inj 2 Mg/Ml 2 Ml Vial IV 10/22/24 14:32 4 mg Q6H PRN Administration Nausea And Vomiting Oxycodone HCl 10 mg 08/21/24 11:34 08/23/24 11:41 Oxycodone Hcl Ir 5 Mg Tab (Immediate Release) PO 08/29/24 13:02 10 mg Q6H PRN Administration Pain Pantoprazole Sodium 40 mg 08/15/24 21:00 08/23/24 10:03 Pantoprazole 40 Mg Tab PO 10/22/24 20:59 Not Given BID [facility] Polyethylene Glycol 17 gm 07/29/24 16:00 08/23/24 08:55 Polyethylene (Miralax) 17 Gm Pack PO 10/22/24 15:59 Not Given DAILY [facility] Potassium Chloride 20 meq 07/16/24 21:00 08/23/24 10:03 Potassium Chloride Crtab 20 Meq Tabcr PO 10/22/24 20:59 Not Given BID [facility] Pregabalin 100 mg 08/20/24 14:00 08/23/24 09:59 Pregabalin 100 Mg Cap PO 09/19/24 13:59 Not Given TID [facility] Spironolactone 25 mg 07/17/24 09:00 08/23/24 10:03 Spironolactone 25 Mg Tab PO 10/22/24 08:59 Not Given DAILY [facility] Torsemide 40 mg 08/15/24 17:00 08/22/24 16:58 Torsemide 20 Mg Tab PO 10/22/24 16:59 40 mg DAILY@1700 [facility] Administration Warfarin Sodium 2 mg 08/17/24 16:00 08/22/24 16:53 Warfarin Sod 2 Mg Tab PO 09/16/24 15:59 2 mg DAILY@1600 [facility] Administration
[2024-08-23] MEDS: HYDROmorphone INJ 0.5 MG/0.5 ML SYR IV STA (14:30)
[2024-08-24 07:09] VITALS: BP 144/75; PULSE 63; TEMP 98.2; O2SAT 97
[2024-08-24 07:42] LABS: Hematocrit (blood only) 39.7 % (42.0-52.0); Hemoglobin 12.6 g/dl (14.0-18.0); Mean Corpuscular Hemoglobin 27.2 pg (25.0-34.0); Mean Corpuscular Hgb Conc 31.7 g/dL (32.0-36.0); Mean Corpuscular Volume 85.7 fL (80.0-100.0); Mean Platelet Volume 9.4 fL (9.4-12.4); Platelet Count 218 K/uL (130-400); RDW Coefficient of Variation 17.9 % (11.5-14.5); RDW Standard Deviation 54.4 fL (36.4-46.3); Red Blood Count 4.63 M/uL (4.70-6.10); White Blood Count 6.44 K/ul (4.8-10.8)
[2024-08-24 08:12] LABS: INR 2.6 (0.9-1.1); Prothrombin Time 26.1 Seconds (9.0-12.0)
[2024-08-24 08:28] LABS: Calcium 9.3 mg/dl (8.6-10.3); Potassium 4.3 mmol/L (3.5-5.1)
[2024-08-24 08:34] LABS: BUN Creatinine Ratio 40.2 (10-20); Creatinine Clr Calc Pharmacy 117.9 ml/min
--- NOTE | 2024-08-24 09:41 | Pharmacy Report ---
Pharmacy Glycemic Short Note 2 - Date of Service August 24, 2024 - Glycemic Short BSG Results (Last 24 hours): 08/23/24 08/23/24 08/23/24 11:44 16:20 20:27 Glucose POC Glucose 124 H 146 H 176 H 08/24/24 08/24/24 06:55 07:37 Glucose 210 H POC Glucose 185 H OUTPATIENT ANTIDIABETIC REGIMEN: * Lantus 12 units SC BID * Novolog 10 units SC AC * Januvia 50 mg PO daily * HbA1c: 6.5% (05/25/24) ASSESSMENT: 08/24/24: * Blood sugars remain reasonably well-controlled, but w/ elevated fasting blood sugar last 2 days * Plan was to increase basal insulin today, but patient refused AM dose of basal so will switch to same daily dose and give once daily * Patient is still awaiting placement for discharge 08/22: * Patient received a total of 74 units of insulin yesterday (30 units were basal and 44 units were bolus). BSGs were 500-430-574-119mg/dL. * Fasting BSG was in the goal range this morning so Lantus will be continued as ordered. * Loosed the CR for lunch, dinner and hs as BSG reading were below goal at dinner and at bedtime. 08/19: * Ben received 72 units of insulin yesterday (30 were basal) * Fasting BSG this AM acceptable, will trial splitting basal insulin again as BSGs trend down significantly in the evening * No changes to NovoLog regimen at this time. 08/17: * Ben received 84 units of insulin yesterday (35 were basal) * Fasting BSG elevated this AM and trending up, basal increased up to 30% of home yesterday (well controlled on home regimen based on A1c from April) and fasting still trending up, unclear cause, consider splitting Lantus dose again if BSGs continue to trend up * NovoLog CR loosened later in day and postprandial BSGs increased, tightened again at this time, may need tighter breakfast, will continue to trend 08/15: * Ben received 71 units of insulin yesterday, 30 of which were basal. BSGs were: [phone] mg/dL. * Fasting BSG this AM is 133 mg/dL. Will continue with once daily basal insulin dose that was increased yesterday. * BSGs trending down throughout the day. Will continue with tighter bolus coverage with breakfast only but going to loosen carb ratio starting at lunchtime today. * Tolerating T2DM diet well. 08/12: * Ben received a total of 82 units of insulin yesterday (26 units were basal and 56 units were bolus). Despite increased insulin doses, his BSGs were all still above goal ([phone]/dL) yesterday. * Fasting BSG was 211mg/dL this morning. The HS Lantus dose has been increased again and bolus insulin parameters have been tightened. 08/10: * Patient received a total of 64 units of insulin yesterday (24 units were basal and 40 units were bolus). BSGs still above goal with meals. Lunch time BSG has been > 250mg/dL the last several days so will tighten the bolus insulin parameters with breakfast only. * Fasting BSG still elevated at 200mg/dL this morning. Will increase the HS Lantus. 08/08: * Patient received 58 units of insulin yesterday (10 units more than the previous day), BSGS rising with meals yesterday, tighten CR. * Fasting still elevated today, despite increase in basal yesterday, will wait to see if tighter CR fixes high blood sugars, if not, consider increasing basal tomorrow. PLAN FOR INPATIENT GLYCEMIC CONTROL: * Hold outpatient diabetes medications * Basal insulin * Lantus 30 units SC at dinner * Bolus insulin * NovoLog per scale ACHS or Q6hrs while NPO * Goal Range: Low 110 mg/dL - High 150 mg/dL * Breakfast: Correction Factor: 25 mg/dL/unit; Carb ratio of 1 unit per 4 grams CHO consumed * Lunch, Dinner, Bedtime: Correction Factor: 30 mg/dL/unit; Carb ratio of 1 unit per 10 grams CHO consumed
--- NOTE | 2024-08-24 11:33 | Hospitalist Progress Note ---
Date of Service August 24, 2024 Assessment & Plan Admission and Anticipated Discharge Date Admission Date: July 15, 2024 Results & Data Results & Data Vital Signs (Past 12 Hours) Vital Signs Temp Pulse Resp BP Pulse Ox O2 Del Method 08/24/24 07:08 36.8 C 63 16 144/75 H 97 Room Air
[2024-08-24] MEDS: LANTUS PER UNIT CHARGE SQ SCH (13:55)
--- NOTE | 2024-08-24 14:28 | Discharge Summary ---
Discharge Summary Date of Service August 24, 2024 Principal Dx & Hospital Course #1 = Principal Diagnosis (1) Cellulitis of right leg: Plan Mr. Lyle is a 58-year-old man with PMH of HFrEF [EF 30 to 35%, TTE 2024] sp ICD, CAD, VT sp ablation, A-fib/DVT on Coumadin, HTN, HLD, pHTN,/OHS on BPAP, bronchial asthma, T2DM on insulin pump, hypothyroidism, CKD [baseline creatinine of 1.2-1.3], chronic anemia [baseline hemoglobin of 10], mood disorder, RLE osteomyelitis sp surgery, left foot osteomyelitis sp left BKA, morbid obesity who was recently admitted 05/24/2024 to 07/01/2024 for decompensated heart failure/LLE cellulitis and infected chronic right foot ulcer. Wound cultures were negative and patient completed cefepime and meropenem course. There was unsuccessful efforts for rehab/permanent placement at the time and patient was discharged home. Patient was admitted at [facility] July 02 to day after [facility] discharge as patient was found by home health nurse living in deplorable condition. Patient was discharged from the hospital despite licensed master social worker notifying hospital providers that patient was not safe going home. Per patient's home health nursing reports, patient has trouble getting food/patient confused about medication/patient worried about bilateral painful leg swelling with intermittent bloody drainage/patient fell off of his chair and had to call [employer] twice to get him up/patient incapable of transfers and had bowel incontinence. Pt was noted to have RLE osteomyelitis and recurrent BLE cellulitis. He was evaluated by Infectious Disease who stated that Relapse of infection likely. Podiatry evaluated, recommended RLE amputation vs palliative care. Patient currently refuses amputation and does not believe he has osteomyelitis d espite multiple explanations by multiple physicians/providers. ID evaluated pt on 07/18, recommendations were iv cefepime 2g q8h, linezolid 600 mg q12h with end of treatment date of 07/30/2024. Per prior hospitalist, discussed with infectious disease once more on 07/27/2024: ID recommends to complete antibiotic course on 07/30/2024 as previously planned. ID believes antibiotics will not heal his infection. Recommends amputation if patient agrees. Patient repeatedly refusing amputation. Consulted palliative care to address goals of care: patient with decisional capacity, would like to be DNR/DNI. Will need close and extensive wound care after discharge. While hospitalized, pt uncooperative, argumentative with angry outbursts. he was evaluated by psychiatry who noted on 08/12/24 the following (Dr Ninoska Ochoa): "...The patient is psychiatrically stable for transfer to a [facility] facility. There is no acute indication for inpatient psychiatric hospitalization as the patient is not suicidal or homicidal; there is no evidence of psychosis nor psychiatric symptoms interfering with their ability to care for their basic needs. Psychiatric follow-up care for this patient should include ongoing management of their medications..." Patient was treated for: Right hip pain Likely due to arthritis No fractures on imaging Follow-up as outpatient continue IV Tylenol increased po oxycodone 10mg q8h PRN heat as needed Up in chair with assistance Recurrent BLE cellulitis RLE osteomyelitis Medical noncompliance No sepsis at presentation. Patient with recurrent lower extremity cellulitis likely secondary to noncompliance with medications/diet and patient's functional disability. Admitting imaging: CT showed diffuse circumferential soft tissue swelling and edema on RLE w/ XR showing cortical destruction involving the lateral and plantar aspect of the calcaneus, the cuboid and the proximal head of the fifth metatarsal bone, consistent with extensive osteomyelitis CT Left knee and BKA stump - suggestive of cellulitis. Infectious disease consulted: ID evaluated 07/18, recs are iv cefepime 2g q8h, linezolid 600 mg q12h EOT 07/30/2024, recommends amputation of RLE. Linezolid and duloxetine has severe interaction of serotonin syndrome, d/w ID 07/18, plan to decrease dose of duloxetine to half; completed all antibiotics to date. Duloxetine dose increased back up to 60mg daily after completion of abx. Relapse of infection likely per ID Podiatry evaluated, recs are RLE amputation vs palliative care. --Patient currently refuses amputation and does not believe he has osteomyelitis despite explaining in detail --Wound culture growing Klebsiella pneumoniae ESBL, Alcaligenes faecalis --Blood cultures negative -- Continue local wound care Per prior hospitalist, discussed with infectious disease on 07/27/2024: Recommends to complete antibiotic course on 07/30/2024 as previously planned. Believes antibiotics will not heal his infection. Recommends amputation if patient agrees Consulted palliative care to address goals of care: patient with decisional capacity Extensive follow up to be coordinated Reviewed images from wound care, will need close wound care followup on discharge Failure to thrive Clinically no significant change Case management/office of aging -discharge to SNF, pt eventually agreeable Acute kidney injury on CKD III: resolved Volume overloaded, Cr elevated to 1.6 Creatinine improved to 1.0 avoid nephrotoxic agents as able Monitor Constipation Continue bowel regimen Minimize narcotics as able Resolved Persistent Atrial fibrillation: Supratherapeutic INR resolved Continue metoprolol On Coumadin for anticoagulation INR therapeutic, 2.6 on discharge Acute on chronic heart failure with reduced ejection fraction: resolved Recent echo with EF of 30 to 35%, BLE swelling noted, CXR with pulmonary edema at presentation. Likely secondary to medication noncompliance. Monitor I's and O's, monitor and replete electrolytes. Monitor volume status closely Continue lisinopril, metoprolol Transitioned IV Lasix to home oral diuretics Continue on torsemide 40 mg daily, Aldactone 25 mg daily Patient refuses to be on fluid restriction Monitor volume status closely Other chronic medical conditions: Continue with/resume home meds as and when able. T2DM: Continue insulin. Has been refusing dietary restrictions, insulin PVD: Status post left BKA amputation. Continue with home aspirin and Lipitor. Morbid obesity: BMI 46. Likely contributed to PVD and recurrent cellulitis. Counseling. NINA on CPAP: Continue CPAP at bedtime. Cardiac defibrillator in situ: stable Major depression disorder: Continue with duloxetine 60mg daily Lymphedema: Likely contributing to cellulitis. Follow-up with lymphedema clinic as an outpatient. Chronic pain syndrome: continue with oxycodone and lyrica, resumed home dosing Notes For Next Care Provider As above Medication Changes From Visit As above Admission HPI Per Admitting Provider History obtained from patient and records. Medical history significant for chronic systolic heart failure, EF 35%, TTE 2024) sp ICD, history CAD, hx VT status post ablation, A-fib/DVT on Coumadin, hypertension, hyperlipidemia, pulmonary hypertension/OHS on BiPAP as per records, bronchial asthma, DM2 insulin requiring, hypothyroidism, CRI (baseline creatinine 1.2- 1.3), chronic anemia (baseline hemoglobin 10), mood disorder, RLE osteomyelitis status post surgery, left foot osteomyelitis status post left BKA, morbid obesity. Extended [facility] confinement May 24 to July 01, 2024 for decompensated heart failure, LLE cellulitis and infected chronic right foot ulcer. Wound cultures negative. Patient completed cefepime and meropenem course. Unsuccessful efforts for rehab/permanent placement. Patient discharged home 2 weeks ago. Patient admitted at [facility] July 02 to 2024 - a day after [facility] discharge. Patient was found by home health nurse living in deplorable conditions. Bleeding from left leg stump wound. Patient discharged from [facility] despite licensed master social worker notifying hospital providers that patient was not safe going home. Patient difficult to understand with flight of ideas and laughing inappropriately as per home health nurse report on home visit. Some trouble getting food as per report. Patient confused about medications. Worried about bilateral painful leg swelling especially on left BKA stump Intermittent bloody drainage. Patient denies headache, fever, chills, chest pain, SOB. 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 Patient incapable of transfers and with bowel incontinence. Watery diarrhea symptoms. Patient agreed to home health nurse recommendation for ER evaluation today because he did not look good and he did not feel well. Increasing weakness. MEDICAL HISTORY: As above. SURGICAL HISTORY: Left shoulder surgery, ICD, tonsillectomy/adenoidectomy, left BKA surgery, vascular device placement, right foot wound debridement, vascular procedures FAMILY HISTORY: There is a family history of heart disease and hypertension. PERSONAL SOCIAL HISTORY: Nonsmoker. No chronic intake of alcoholic beverages. 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 Admission Exam Per Admitting Provider GENERAL: Apathetic, morbidly obese, no respiratory distress SKIN: Pallor, warm HEENT: [place] palpebral conjunctivae, no ptosis, dry buccal mucosa NECK : Supple, short neck, no tenderness CHEST : Decreased breath sounds, no tenderness HEART : Irregular, diminished S1-S2 ABDOMEN: distention, no tenderness EXTREMITIES : Tender erythematous RLE with dressing over wound, left amputation stump induration with tenderness with dressing NEUROLOGIC : Coherent, no facial asymmetry, no other gross focality Discharge Exam Pt refusing to be touched for discharge physical exam. Visual exam noted below: General: Alert. No acute distress Skin: RLE with erythema and swelling Psych: Uncooperative mood and affect Neuro:Alert HEENT: NC/AT Resp: no increased effort of breathing Extremities: RLE with erythema and swelling, L stump noted Updated Medication List Medication Instructions Recorded Confirmed Type acetaminophen 325 mg tablet 650 mg PO QID PRN Pain 02/08/24 07/15/24 History (Tylenol) oxycodone 10 mg tablet 10 mg PO Q8H PRN Pain, Severe 02/08/24 07/15/24 History betamethasone dipropionate 0.05 % 1 applic topical BID 05/24/24 07/15/24 History topical cream torsemide 20 mg tablet 40 mg PO QAM 05/24/24 07/15/24 History pregabalin 75 mg capsule (Lyrica) 75 mg PO TID #90 caps 07/01/24 07/15/24 Rx insulin syringe,safety needle 0.5 #200 ea 07/08/24 07/15/24 Rx mL 29 gauge x 1/2" (BD SafetyGlide Insulin Syringe) lisinopril 5 mg tablet 5 mg PO DAILY 07/15/24 07/15/24 History multivit,tx with iron 27 1 tab PO DAILY 07/15/24 07/15/24 History qs-oqvslrf-ckbwu acid 0.4 mg-minerals tablet omeprazole 20 mg capsule,delayed 20 mg PO BID 07/15/24 07/15/24 History release potassium chloride 20 mEq 20 meq PO BID 07/15/24 07/15/24 History tablet,extended release(part/cryst) torsemide 20 mg tablet 20 mg PO QPM 07/15/24 07/15/24 History ammonium lactate 12 % lotion 1 applic topical DAILY DRY SKIN ON 08/24/24 Rx LEGS #225 grams aspirin 81 mg tablet,delayed 81 mg PO DAILY #30 tabs 08/24/24 Rx release atorvastatin 80 mg tablet 80 mg PO DAILY #30 tabs 08/24/24 Rx dicyclomine 10 mg capsule 10 mg PO QID PRN ABD PAIN #30 caps 08/24/24 Rx docusate sodium 100 mg capsule 100 mg PO BID #60 caps 08/24/24 Rx duloxetine 60 mg capsule,delayed 60 mg PO QAM #30 caps 08/24/24 Rx release ergocalciferol (vitamin D2) 1,250 1,250 mcg PO WK #30 caps 08/24/24 Rx mcg (50,000 unit) capsule (Vitamin D2) ferrous sulfate 325 mg (65 mg 325 mg PO BID #60 tabs 08/24/24 Rx iron) tablet insulin aspart (niacinamide) 10 unit subcut AC #10 mL 08/24/24 Rx (U-100) 100 unit/mL subcutaneous solution insulin glargine 100 unit/mL (3 12 unit (0.12 mL) subcut BID #3 mL 08/24/24 Rx mL) subcutaneous pen (Lantus Solostar U-100 Insulin) levothyroxine 88 mcg tablet 88 mcg PO DAILYBB #30 tabs 08/24/24 Rx lisinopril 5 mg tablet 5 mg PO QAM #30 tabs 08/24/24 Rx loratadine 10 mg tablet 10 mg PO DAILY #30 tabs 08/24/24 Rx metoprolol succinate 50 mg 150 mg (3 x 50 mg) PO QAM #90 tabs 08/24/24 Rx tablet,extended release 24 hr nystatin 100,000 unit/gram topical 1 applic topical BID PRN 08/24/24 Rx powder intertrigo #15 grams oxycodone 5 mg tablet 10 mg (2 x 5 mg) PO Q8H PRN pain 08/24/24 Rx #30 tabs sitagliptin phosphate 50 mg tablet 50 mg PO DAILY #30 tabs 08/24/24 Rx (Januvia) spironolactone 25 mg tablet 25 mg PO DAILY #30 tabs 08/24/24 Rx triamcinolone acetonide 0.1 % 1 applic topical TID PRN rash #60 08/24/24 Rx lotion mL warfarin 2 mg tablet 2 mg PO DAILY@1600 #30 tabs 08/24/24 Rx Hospital Stay Data Consultations 07/15/24 20:09 ED Decision to Admit Stat 07/16/24 14:04 Consult Infectious Diseases Routine 07/16/24 14:06 Consult Podiatry Routine 07/26/24 17:21 Consult Palliative Care Routine 08/11/24 15:20 Consult Psychiatry Routine Diagnostic Imagining Performed 07/15/24 17:00 CT cervical spine wo con Stat CT head/brain wo con Stat 07/15/24 21:13 CT foot RT w con Stat CT tib/fib RT w con Stat 07/15/24 21:15 CT knee LT w con Stat Chest X-Ray 07/15/24 16:59 Chest radiograph, one view History: Chest pain. Wound clinic Comparison: 05/23/2024 Findings: Single AP view of the chest performed. No focal consolidation or pleural effusion. There is mild perihilar opacity. No pneumothorax. The heart size appears enlarged. Left chest wall single-lead AICD. Indistinct appearing pulmonary vascularity. No evidence for lymphadenopathy. No visualized bony or soft tissue abnormality. Impression: Cardiomegaly. Mild perihilar pulmonary edema. Electronically signed by Nader Medrano 07-15-2024 7:[address] 07/15/24 17:00 CT cervical spine without IV contrast History: Pain Comparison: None Technique: Using multidetector thin collimation helical acquisition technique, axial, coronal and sagittal CT images through the cervical spine were obtained without intravenous contrast. Dose reduction techniques were achieved by using automatic exposure control and/or adjustment of mA and/or kV according to patient size and/or use of iterative reconstruction technique. Findings: The cervical vertebrae are normally aligned. Straightened cervical lordosis. No acute fracture or subluxation. No prevertebral edema. Severe degenerative disc height loss at C5-6, where there is a prominent anterior bridging osteophyte. There are moderate multilevel degenerative changes elsewhere throughout the cervical spine. Mature bony degenerative fusion across the right C2-3 facet joint. No abnormality of the paraspinous soft tissues. Impression: No acute fracture or traumatic subluxation. Electronically signed by Nader Medrano 07-15-2024 7:[address] 07/15/24 17:00 CT head without contrast History: Headache Comparison: None Technique: Using multidetector thin collimation helical acquisition technique, axial, coronal and sagittal CT images from the skull base to the vertex were obtained without intravenous contrast. Dose reduction techniques were achieved by using automatic exposure control and/or adjustment of mA and/or kV according to patient size and/or use of iterative reconstruction technique. Findings: No intracranial hemorrhage, mass-effect, or midline shift. The ventricles are proportionate to the cerebral sulci. The simons to white matter differentiation of the cerebral hemispheres is preserved. The basal cisterns are patent. The visualized paranasal sinuses are clear. Mastoid air cells are clear. Impression: No acute intracranial pathology. Electronically signed by Nader Medrano 07-15-2024 7:10 PM Tibia/Fibula X-Ray 07/15/24 17:02 Study: Left tib-fib 2 views, right tib-fib 2 views History: Pain Comparison: None Findings: There is no acute fracture or dislocation. Alignment is anatomic. Joint spaces are well maintained. Below-knee amputation of the left knee seen at the proximal tibial and fibular diaphyses where there is healing callus formation. There is generalized subcutaneous edema about the right lower leg, as well as about to the remaining portion of the left lower leg. There is heavy arterial sclerosis seen. Bone mineralization is normal. Impression: No acute bony abnormality. Left below-knee amputation. Generalized soft tissue edema bilaterally. Electronically signed by Nader Medrano 07-15-2024 7:56 PM Foot X-Ray 07/15/24 17:03 Study: Right foot 2 views History: Wound clinic Comparison: None Findings/impression: A tiny thin curvilinear foreign density is a within the plantar aspect of the soft tissues of the great toe. The tuft of the distal phalanx of the great toe appears blunted, however which appears well-corticated, likely reflecting chronic erosion. The remaining digits, 2-5, appear grossly unremarkable. The soft tissues of the great toe are swollen. There is generalized soft tissue swelling about the foot. Erosive changes with diminished overall size about the plantar aspect of the entire calcaneus. Small and heterotopic ossification within the Achilles tendon. Heavy arterial sclerosis. Electronically signed by Nader Medrano 07-15-2024 7:56 PM Tibia/Fibula X-Ray 07/15/24 17:03 Study: Left tib-fib 2 views, right tib-fib 2 views History: Pain Comparison: None Findings: There is no acute fracture or dislocation. Alignment is anatomic. Joint spaces are well maintained. Below-knee amputation of the left knee seen at the proximal tibial and fibular diaphyses where there is healing callus formation. There is generalized subcutaneous edema about the right lower leg, as well as about to the remaining portion of the left lower leg. There is heavy arterial sclerosis seen. Bone mineralization is normal. Impression: No acute bony abnormality. Left below-knee amputation. Generalized soft tissue edema bilaterally. Electronically signed by Nader Medrano 07-15-2024 7:[address] 07/15/24 21:13 Exam(s): CT RIGHT FOOT With Contrast IV Amt: 120ml optiray 320 EXAM: CT Right Lower Extremity With Intravenous Contrast, Foot CLINICAL HISTORY: swelling. TECHNIQUE: Axial computed tomography images of the right foot with intravenous contrast. CTDI is 14.18 mGy and DLP is 862.3 mGy-cm. Automated exposure control was utilized for the study. A dose lowering technique was utilized adhering to the principles of ALARA. CONTRAST: Patient received 120ml optiray 320 of IV contrast COMPARISON: No relevant prior studies available. FINDINGS: Bones/joints: Diffuse osteopenia and somewhat mottled sclerotic appearance of the osseous structures. There is cortical destruction involving the lateral and plantar aspect of the calcaneus, the cuboid and the proximal head of the fifth metatarsal bone. No pathologic fracture. Degenerative changes throughout the foot. There is a pes planus configuration of the arch. There is surgical absence of the distal phalanx of the first digit. No dislocation. Soft tissues: There is a soft tissue defect involving the plantar and lateral aspect of the hindfoot and midfoot. The soft tissue defect approximates the abnormal osseous structures detailed in the bone section with only 2-3 mm of soft tissue covering the osseous structures. In addition, there is diffuse subcutaneous edema, most prominent overlying the dorsum of the foot. No tracking subcutaneous emphysema or well- defined loculated fluid collection. No radiopaque foreign body. IMPRESSION: 1. Diffuse osteopenia and somewhat mottled sclerotic appearance of the osseous structures. There is cortical destruction involving the lateral and plantar aspect of the calcaneus, the cuboid and the proximal head of the fifth metatarsal bone. The appearance is most consistent with extensive osteomyelitis. No pathologic fracture. 2. Soft tissue defect involving the lateral and plantar aspect of the hind and midfoot. Diffuse soft tissue edema. In the absence of traumatic injury, the primary consideration is cellulitis. No tracking subcutaneous emphysema to suggest necrotizing fasciitis or well-defined abscess. Electronically signed by: Mychal Nuñez MD 07/16/24 00:[address] 07/15/24 21:13 Exam(s): CT EXTREMITY RIGHT LOWER With Contrast IV Amt: 120ml optiray 320 EXAM: CT Right Lower Extremity With Intravenous Contrast CLINICAL HISTORY: swelling. TECHNIQUE: Axial computed tomography images of the right lower extremity with intravenous contrast. CTDI is 14.18 mGy and DLP is 862.3 mGy-cm. Automated exposure control was utilized for the study. A dose lowering technique was utilized adhering to the principles of ALARA. CONTRAST: Patient received 120ml optiray 320 of IV contrast COMPARISON: No relevant prior studies available. FINDINGS: Bones/joints: No acute osseous abnormality involving the tibia and fibula. Please see the dedicated CT examination of the right foot for findings regarding the osseous structures of the foot. No dislocation. Soft tissues: Diffuse circumferential subcutaneous fat stranding and edema with extensive dermal thickening noted throughout the right calf from the included distal thigh through the ankle. No well-defined fluid collection or tracking subcutaneous emphysema. There is scattered subdermal punctate calcifications. Fatty infiltration of the muscle bundles. No intramuscular focal abnormality. IMPRESSION: Diffuse circumferential soft tissue swelling and edema with overlying dermal thickening. In the absence of traumatic injury, the differential considerations include venous stasis changes or cellulitis. No well- defined loculated abscess or tracking subcutaneous emphysema to suggest necrotizing fasciitis. Electronically signed by: Mychal Nuñez MD 07/16/24 00:[address] 07/15/24 21:15 Exam(s): CT LEFT KNEE With Contrast IV Amt: 120ml optiray 320 EXAM: CT Left Lower Extremity With Intravenous Contrast, Knee CLINICAL HISTORY: bka stump swelling. TECHNIQUE: Axial computed tomography images of the left knee with intravenous contrast. CTDI is 14.18 mGy and DLP is 862.3 mGy-cm. Automated exposure control was utilized for the study. A dose lowering technique was utilized adhering to the principles of ALARA. CONTRAST: Patient received 120ml optiray 320 of IV contrast COMPARISON: No relevant prior studies available. FINDINGS: Bones/joints: The regional osseous structures are intact. There are reactive changes along the distal aspect of the left tibial and fibular stumps. No cortical destruction or acute periosteal reaction. No dislocation. Soft tissues: The left BKA is noted. There is diffuse subcutaneous fat stranding and edema throughout the included left knee and BKA with asymmetric edema and dermal thickening involving the dependent stump. No loculated fluid collection. No tracking subcutaneous emphysema. IMPRESSION: 1. The left BKA is noted. There is diffuse subcutaneous fat stranding and edema throughout the included left knee and BKA with asymmetric edema and dermal thickening involving the dependent stump. No loculated fluid collection. No tracking subcutaneous emphysema to suggest necrotizing fasciitis. The primary consideration is dependent venous stasis changes or cellulitis. 2. No findings to suggest osteomyelitis of the regional osseous structures. No acute osseous abnormality. Electronically signed by: Mychal Nuñez MD 07/16/24 00:54 AM KUB X-Ray 07/29/24 12:27 KUB CLINICAL HISTORY: Abdominal pain. COMPARISON STUDY: KUB May 29, 2024. CT of the abdomen and pelvis May 30, 2024. FINDINGS: Prominent gas-filled loops of colon are noted without radiographic evidence for a bowel obstruction. There is a moderate to large amount of stool within the colon and rectum. No dilated small bowel loops are present. A subclavian pacer/AICD lead is partially imaged. IMPRESSION: 1. Moderate to large amount of stool within the colon and rectum. 2. No radiographic evidence for a bowel obstruction. ACT 112: Negative or not required by law. Electronically signed by: Devyn Flynn M.D. 07/29/2024 3:03 PM Hip/Pelvis X-Ray 08/14/24 13:14 HISTORY: Right hip pain. TECHNIQUE: Pelvic and right hip radiographs. COMPARISON: Abdominal radiographs dated 05/29/2024. FINDINGS: The pelvic and obturator rings appear intact. No widening of the pubic symphysis or sacroiliac joints. The right femoral head and proximal femur appear intact. Small chronic appearing ossicle adjacent to the superior acetabulum is unchanged since prior study from 05/29/2024 and could represent sequela of remote trauma. 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 Mild osteoarthritis of the right hip. Similar morphology of the left femoral head neck junction. Mild left hip osteoarthritis. Enthesophyte formation about the iliac crest. Included lumbar spine is unremarkable. IMPRESSION: * No acute fracture or dislocation. * Mild osteoarthritis of the hips. 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 * Mild degenerative changes of the pelvis and lower lumbar spine. Electronically signed by Heron Up 08-14-2024 2:13 PM Pending Results Patient Have Any Pending Studies at Discharge: No Discharge Instructions Given to Patient (Per Discharging Provider) Mr. Lyle, You are being discharged to a [facility] facility. You declined the recommended amputation treatment for your lower extremity infection recommended by Infectious Disease and Podiatry. Infectious Disease also recommended that antibiotics will not treat your current infection and that you do need the amputation. Please consider this definitive treatment. You also worked with Palliative Care and your goals of care were defined. Please keep close follow up with your primary care provider after discharge. Please do not hesitate to come back to the emergency room if your symptoms worsen or return. It was a pleasure taking care of you while you were here. Total Time Total Time Spent Total Time Spent (In Minutes): 60
[2024-08-24] MEDS ORDERED: LANTUS PER UNIT CHARGE SQ SCH (16:30)
== END 2024-08-24 14:45 | DRG 637 ==
LOC: ED 15:20 → EDINP 21:21 → SUATTDRO 21:21 → 3E 23:40
DX: Z79.4 Long term (current) use of insulin; I25.10 Atherosclerotic heart disease of native coronary artery without angina pectoris; E11.49 Type 2 diabetes mellitus with other diabetic neurological complication; I48.19 Other persistent atrial fibrillation; D64.9 Anemia, unspecified; G89.4 Chronic pain syndrome; Z79.82 Long term (current) use of aspirin; R62.7 Adult failure to thrive; Z68.42 Body mass index [BMI] 45.0-49.9, adult; L97.514 Non-pressure chronic ulcer of other part of right foot with necrosis of bone; Z96.41 Presence of insulin pump (external) (internal); B96.1 Klebsiella pneumoniae [K. pneumoniae] as the cause of diseases classified elsewhere; E66.2 Morbid (severe) obesity with alveolar hypoventilation; F32.9 Major depressive disorder, single episode, unspecified; M86.171 Other acute osteomyelitis, right ankle and foot; E03.9 Hypothyroidism, unspecified; E11.621 Type 2 diabetes mellitus with foot ulcer; N18.30 Chronic kidney disease, stage 3 unspecified; Z60.2 Problems related to living alone; E11.22 Type 2 diabetes mellitus with diabetic chronic kidney disease; F43.21 Adjustment disorder with depressed mood; N17.9 Acute kidney failure, unspecified; Z91.148 Patient's other noncompliance with medication regimen for other reason; M16.11 Unilateral primary osteoarthritis, right hip; E11.69 Type 2 diabetes mellitus with other specified complication; L03.115 Cellulitis of right lower limb; E11.51 Type 2 diabetes mellitus with diabetic peripheral angiopathy without gangrene; Z95.810 Presence of automatic (implantable) cardiac defibrillator; Z66 Do not resuscitate; Z79.01 Long term (current) use of anticoagulants; Z79.890 Hormone replacement therapy; R15.9 Full incontinence of feces; M87.9 Osteonecrosis, unspecified; Z89.512 Acquired absence of left leg below knee; L03.116 Cellulitis of left lower limb; K59.00 Constipation, unspecified; I13.0 Hypertensive heart and chronic kidney disease with heart failure and stage 1 through stage 4 chronic kidney disease, or unspecified chronic kidney disease; M54.2 Cervicalgia; I27.20 Pulmonary hypertension, unspecified; I50.23 Acute on chronic systolic (congestive) heart failure